=== PATIENT | male | born 1955 | race Caucasian/White ===

== ENCOUNTER 2016-04-26 15:37 | Outpatient (RCR) | payer MEDICAID ==
[2016-04-24 14:02] LABS: RED BLOOD COUNT 5.08 10^6/uL (4.35-5.85); RED CELL DISTRIBUTION WIDTH 14.9 % (10.0-14.5); WHITE BLOOD COUNT 7.7 10^3/uL (4.3-11.0)
[2016-04-24 14:22] LABS: ALBUMIN 4.2 G/DL (3.2-4.5); CALCIUM 9.9 MG/DL (8.5-10.1); CREATININE SERUM 1.39 MG/DL (0.60-1.30); PHOSPHORUS 3.5 MG/DL (2.3-4.7); POTASSIUM 2.9 MMOL/L (3.6-5.0)
[2016-04-25 06:54] LABS: CALCIUM PARA THYROID HORMONE 9.8 mg/dL (8.5-10.5)
[~2016-04-26 15:37] MED LIST: AC500T; AMIT150T; ASP325T; CHOL2000; CYCL10TA9; HYDR12.570; LISI20TA; METO100T; NAPR-243; OMG1KC; SMV20T; TRAM50TA2
[2016-04-26 16:14] LABS: PROTEIN/CREATININE RATIO 0.15
== END 2016-05-01 13:35 | disposition home or self-care (01) ==
LOC: LAB 15:37
PROVIDERS: ATTEND Internal Medicine Nephrology
DX: N18.2 Chronic kidney disease, stage 2 (mild) (principal); R60.0 Localized edema; E87.5 Hyperkalemia; Z86.59 Personal history of other mental and behavioral disorders; E66.2 Morbid (severe) obesity with alveolar hypoventilation; I12.9 Hypertensive chronic kidney disease with stage 1 through stage 4 chronic kidney disease, or unspecified chronic kidney disease; E78.5 Hyperlipidemia, unspecified; E11.9 Type 2 diabetes mellitus without complications; G47.33 Obstructive sleep apnea (adult) (pediatric); M79.7 Fibromyalgia; M19.90 Unspecified osteoarthritis, unspecified site
CPT/HCPCS: 36415; 80069; 82306; 82570; 83970; 84156; 85027

== ENCOUNTER 2016-05-01 13:24 | Outpatient (RCR) | payer MEDICAID ==
[2016-05-01 17:20] LABS: BILIRUBIN,URINE NEGATIVE (NEGATIVE); KETONES,URINE NEGATIVE (NEGATIVE); LEUKOCYTE ESTERASE ,URINE 2+ (NEGATIVE); NITRITE,URINE POSITIVE (NEGATIVE); PH,URINE 6 (5-9); PROTEIN,URINE 1+ (NEGATIVE); UROBILINOGEN,URINE NORMAL (NORMAL)
[2016-05-01 17:30] LABS: WBC,URINE TNTC /HPF
== END 2016-07-30 | disposition home or self-care (01) ==
LOC: LAB 13:24
PROVIDERS: ATTEND Internal Medicine Nephrology
DX: R35.0 Frequency of micturition (principal)
CPT/HCPCS: 81000; 87088; 87186

== ENCOUNTER → 2016-07-03 | Outpatient (CLI) | payer MEDICAID ==
[2016-07-03 13:30] LABS: BILIRUBIN,URINE NEGATIVE (NEGATIVE); KETONES,URINE NEGATIVE (NEGATIVE); LEUKOCYTE ESTERASE ,URINE 2+ (NEGATIVE); NITRITE,URINE POSITIVE (NEGATIVE); PH,URINE 6 (5-9); PROTEIN,URINE 1+ (NEGATIVE); UROBILINOGEN,URINE NORMAL (NORMAL)
[2016-07-03 13:40] LABS: SQUAMOUS EPITHELIAL CELL,UR RARE /HPF; WBC,URINE 25-50 /HPF
[2016-07-03 14:03] LABS: ALBUMIN 4.2 G/DL (3.2-4.5); ANION GAP 12 MMOL/L (5-14); BLOOD UREA NITROGEN 14 MG/DL (7-18); BUN/CREATININE RATIO 12; CALCIUM 9.6 MG/DL (8.5-10.1); CARBON DIOXIDE 25 MMOL/L (21-32); CHLORIDE 103 MMOL/L (98-107); CREATININE SERUM 1.19 MG/DL (0.60-1.30); GFR ESTIMATED > 60; GLUCOSE 168 MG/DL (70-105); PHOSPHORUS 3.1 MG/DL (2.3-4.7); POTASSIUM 4.4 MMOL/L (3.6-5.0); SODIUM 140 MMOL/L (135-145); URIC ACID 8.1 MG/DL (2.6-7.2)
[2016-07-04 07:46] LABS: MICROALBUMIN/CREATININE RATIO 37.6 mg/gCR (0.0-30.0)
== END ==
LOC: LAB 13:12
PROVIDERS: ATTEND Internal Medicine Nephrology
DX: E78.5 Hyperlipidemia, unspecified (principal); I12.9 Hypertensive chronic kidney disease with stage 1 through stage 4 chronic kidney disease, or unspecified chronic kidney disease; N18.2 Chronic kidney disease, stage 2 (mild); R60.0 Localized edema; E87.5 Hyperkalemia; E66.2 Morbid (severe) obesity with alveolar hypoventilation; E11.9 Type 2 diabetes mellitus without complications; M79.7 Fibromyalgia; M19.90 Unspecified osteoarthritis, unspecified site
CPT/HCPCS: 36415; 80069; 81000; 82043; 84550; 87088

== ENCOUNTER → 2017-03-23 | Outpatient (CLI) | payer MEDICAID ==
[2017-03-23 14:40] LABS: BILIRUBIN,URINE NEGATIVE (NEGATIVE); KETONES,URINE NEGATIVE (NEGATIVE); LEUKOCYTE ESTERASE ,URINE 3+ (NEGATIVE); NITRITE,URINE NEGATIVE (NEGATIVE); PH,URINE 5 (5-9); PROTEIN,URINE NEGATIVE (NEGATIVE); UROBILINOGEN,URINE NORMAL (NORMAL)
[2017-03-23 14:47] LABS: WBC,URINE 25-50 /HPF
[2017-03-23 14:58] LABS: PROTEIN/CREATININE RATIO 0.15
[2017-03-23 14:59] LABS: MEAN PLATELET VOLUME 9.7 FL (7.4-10.4); RED BLOOD COUNT 5.04 10^6/uL (4.35-5.85); RED CELL DISTRIBUTION WIDTH 14.9 % (10.0-14.5); WHITE BLOOD COUNT 9.3 10^3/uL (4.3-11.0)
[2017-03-23 15:16] LABS: ALBUMIN 4.1 GM/DL (3.2-4.5); CALCIUM 9.5 MG/DL (8.5-10.1); CREATININE SERUM 1.31 MG/DL (0.60-1.30); PHOSPHORUS 2.9 MG/DL (2.3-4.7); POTASSIUM 2.9 MMOL/L (3.6-5.0)
[2017-03-24 08:08] LABS: CALCIUM PARA THYROID HORMONE 9.4 mg/dL (8.5-10.5)
== END ==
LOC: LAB 14:28
PROVIDERS: ATTEND Internal Medicine Nephrology
DX: R60.0 Localized edema (principal); E87.5 Hyperkalemia; Z86.59 Personal history of other mental and behavioral disorders; E66.2 Morbid (severe) obesity with alveolar hypoventilation; I12.9 Hypertensive chronic kidney disease with stage 1 through stage 4 chronic kidney disease, or unspecified chronic kidney disease; N18.2 Chronic kidney disease, stage 2 (mild); E78.5 Hyperlipidemia, unspecified; E11.9 Type 2 diabetes mellitus without complications; G47.33 Obstructive sleep apnea (adult) (pediatric); M79.7 Fibromyalgia; M19.90 Unspecified osteoarthritis, unspecified site; N39.0 Urinary tract infection, site not specified; E87.6 Hypokalemia
CPT/HCPCS: 36415; 80069; 81000; 82306; 82570; 83970; 84156; 85027; 87088

== ENCOUNTER → 2017-04-03 | Outpatient (CLI) | payer MEDICAID ==
[2017-04-03 16:09] LABS: BILIRUBIN,URINE NEGATIVE (NEGATIVE); KETONES,URINE NEGATIVE (NEGATIVE); LEUKOCYTE ESTERASE ,URINE 3+ (NEGATIVE); NITRITE,URINE NEGATIVE (NEGATIVE); PH,URINE 5 (5-9); PROTEIN,URINE 1+ (NEGATIVE); UROBILINOGEN,URINE NORMAL (NORMAL)
[2017-04-03 16:23] LABS: WBC,URINE 50-100 /HPF
== END ==
LOC: LAB 15:54
PROVIDERS: ATTEND Internal Medicine Nephrology
DX: I12.9 Hypertensive chronic kidney disease with stage 1 through stage 4 chronic kidney disease, or unspecified chronic kidney disease (principal); N18.2 Chronic kidney disease, stage 2 (mild); R60.0 Localized edema; E87.5 Hyperkalemia; Z86.59 Personal history of other mental and behavioral disorders; E66.2 Morbid (severe) obesity with alveolar hypoventilation; E78.5 Hyperlipidemia, unspecified; E11.9 Type 2 diabetes mellitus without complications; M79.7 Fibromyalgia; N39.0 Urinary tract infection, site not specified; E87.6 Hypokalemia
CPT/HCPCS: 81000; 87088; 87186

== ENCOUNTER → 2017-07-21 | Outpatient (CLI) | payer MEDICAID ==
[~2017-07-21] VITALS: Ht 177.8 cm; Wt 167.8 kg
[~2017-07-21] MED LIST changes: +CATHETER FLUSH 10 ML SYR IV PRN; +REGADENOSON 0.4 MG/5 ML SYR (LEXISCAN) IV ONE
[2017-07-21 13:19] VITALS: BP 155/105
--- NOTE | 2017-07-21 21:17 | STRESS TEST ---
DATE OF SERVICE: 07/21/2017 PROCEDURE PERFORMED: Resting and post regadenoson technetium-99m Tetrofosmin SPECT CT imaging. ORDERING PHYSICIAN: Cory Becker MD, ORBIN, SULTANA, FACC. OTHER PHYSICIAN: SAMMI Bernard. CLINICAL DIAGNOSIS: Chest discomfort, shortness of breath. Baseline images were carried out after injection of 10.38 mCi technetium-99m Tetrofosmin. This was followed by 0.4 mg of regadenoson and 30.2 mCi technetium-99m Tetrofosmin for stress imaging. The electrocardiogram showed sinus rhythm at baseline. The electrocardiogram did not change significantly with the regadenoson infusion. Isolated premature ventricular contractions were seen. He tolerated the procedure well. Review of images at rest and following stress does not indicate any significant perfusion defects consistent with significant myocardial ischemia or infarction. Gated images show normal global left ventricular systolic function, normal regional wall motion. Left ventricular ejection fraction is calculated to be 72%. Left ventricular end diastolic volume is 53 mL. TID is absent (0.97). CONCLUSIONS: 1. No evidence of significant myocardial ischemia or infarction in this study. 2. Normal regional wall motion. 3. Normal global left ventricular systolic function with a calculated ejection fraction of 72%. 4. Normal left ventricular cavity size. Job ID: [id number] DocumentID: [id number] Dictated Date: 07/21/2017 17:49:54 Candy Wrapping Machine Operator Date: 07/21/2017 21:16:38 Dictated By: CORY BECKER MD, ROBIN, FACP, FACC, [facility]
== END ==
LOC: CARD 11:42
PROVIDERS: ATTEND Internal Medicine Cardiovascular Disease
DX: R07.9 Chest pain, unspecified (principal); R06.09 Other forms of dyspnea; E11.9 Type 2 diabetes mellitus without complications; I11.9 Hypertensive heart disease without heart failure; E66.09 Other obesity due to excess calories; G47.33 Obstructive sleep apnea (adult) (pediatric)
CPT/HCPCS: 78452; 93017

== ENCOUNTER → 2017-07-22 | Outpatient (CLI) | payer MEDICAID ==
[~2017-07-22] MED LIST changes: -CATHETER FLUSH 10 ML SYR IV PRN; -REGADENOSON 0.4 MG/5 ML SYR (LEXISCAN) IV ONE
[2017-07-22 15:01] LABS: BILIRUBIN,URINE NEGATIVE (NEGATIVE); CLARITY,URINE CLEAR; COLOR,URINE YELLOW; GLUCOSE, URINE (UA) 4+ (NEGATIVE); KETONES,URINE NEGATIVE (NEGATIVE); LEUKOCYTE ESTERASE ,URINE 3+ (NEGATIVE); NITRITE,URINE POSITIVE (NEGATIVE); PH,URINE 5 (5-9); PROTEIN,URINE 1+ (NEGATIVE); UROBILINOGEN,URINE NORMAL (NORMAL)
[2017-07-22 15:09] LABS: RBC,URINE RARE /HPF
[2017-07-22 15:10] LABS: BACTERIA,URINE LARGE /HPF; SQUAMOUS EPITHELIAL CELL,UR 0-2 /HPF; WBC,URINE >100 /HPF
[2017-07-22 15:13] LABS: HEMOGLOBIN 13.7 G/DL (13.3-17.7); MEAN PLATELET VOLUME 9.5 FL (7.4-10.4); RED BLOOD COUNT 4.87 10^6/uL (4.35-5.85); RED CELL DISTRIBUTION WIDTH 15.5 % (10.0-14.5); WHITE BLOOD COUNT 7.9 10^3/uL (4.3-11.0)
[2017-07-22 15:17] LABS: ALBUMIN 4.1 GM/DL (3.2-4.5); BUN/CREATININE RATIO 12; CALCIUM 9.8 MG/DL (8.5-10.1); CARBON DIOXIDE 26 MMOL/L (21-32); CHLORIDE 102 MMOL/L (98-107); CREATININE SERUM 1.13 MG/DL (0.60-1.30); GFR ESTIMATED > 60; GLUCOSE 333 MG/DL (70-105); PHOSPHORUS 2.9 MG/DL (2.3-4.7); POTASSIUM 4.3 MMOL/L (3.6-5.0); SODIUM 138 MMOL/L (135-145); URIC ACID 7.1 MG/DL (2.6-7.2)
== END ==
LOC: LAB 14:35
PROVIDERS: ATTEND Internal Medicine Nephrology
DX: I12.9 Hypertensive chronic kidney disease with stage 1 through stage 4 chronic kidney disease, or unspecified chronic kidney disease (principal); E11.22 Type 2 diabetes mellitus with diabetic chronic kidney disease; N18.2 Chronic kidney disease, stage 2 (mild); N39.0 Urinary tract infection, site not specified; R60.0 Localized edema; E87.5 Hyperkalemia; E78.5 Hyperlipidemia, unspecified; M79.7 Fibromyalgia; E87.6 Hypokalemia; E66.2 Morbid (severe) obesity with alveolar hypoventilation; Z86.59 Personal history of other mental and behavioral disorders
CPT/HCPCS: 36415; 80069; 81000; 82306; 82570; 83970; 84156; 84550; 85027; 87077; 87088; 87186

== ENCOUNTER 2017-10-01 15:59 | Inpatient (IN) | payer MEDICAID ==
[~2017-10-01] VITALS: Ht 177.8 cm; Wt 167.4 kg
[2017-10-01] MEDS ORDERED: NS IV 1000 ML 1,000 ML IV ONE (16:29)
[2017-10-01] MEDS ORDERED: TETANUS,DIPTH,PERTUSS P/F (BOOSTRIX) 0.5 ML VIAL IM ONE ×2 (16:30→18:35)
[2017-10-01 16:37] LABS: BASOPHILS % (AUTO) 0 % (0-10); EOSINOPHILS # (AUTO) 0.2 10^3/uL (0.0-0.3); EOSINOPHILS % (AUTO) 2 % (0-10); HEMATOCRIT 43 % (40-54); HEMOGLOBIN 14.3 G/DL (13.3-17.7); LYMPHOCYTES # (AUTO) 1.1 X 10^3 (1.0-4.0); LYMPHOCYTES % (AUTO) 13 % (12-44); MEAN CORPUSCULAR HEMOGLOBIN 29 PG (25-34); MEAN CORPUSCULAR HGB CONC 33 G/DL (32-36); MEAN CORPUSCULAR VOLUME 86 FL (80-99); MONOCYTES # (AUTO) 0.6 X 10^3 (0.0-1.0); MONOCYTES % (AUTO) 7 % (0-12); NEUTROPHILS # (AUTO) 6.9 X 10^3 (1.8-7.8); NEUTROPHILS % (AUTO) 78 % (42-75); PLATELET COUNT 209 10^3/uL (130-400); RED BLOOD COUNT 5.02 10^6/uL (4.35-5.85); RED CELL DISTRIBUTION WIDTH 15.9 % (10.0-14.5); WHITE BLOOD COUNT 8.9 10^3/uL (4.3-11.0)
--- NOTE | 2017-10-01 16:37 | ED Fall/Injury ---
General Chief Complaint: Trauma-Non Activation Stated Complaint: FALL Source: patient Exam Limitations: other (PT SPEECH PATTERN IS SOMEWHAT DIFFICULT TO UNDERSTAND- -MUMBLES ) History of Present Illness Date Seen by Provider: Oct 01, 2017 Time Seen by Provider: 16:15 Initial Comments PT ARRIVES VIA EMS FROM HOME PT STATES HE HAS FALLEN X 3 TODAY. STATES HIS "LEGS JUST GIVE OUT" NO LOSS OF CONSCIOUSNESS HAS ABRASIONS TO HIS NOSE, AND RIGHT ELBOW C/O PAIN TO RIGHT ELBOW AND RIGHT HAND ALSO C/O BILATERAL HIP PAIN, BUT HAS CHRONIC BILATERAL HIP PAIN NO HEADACHE NO NOSEBLEED NO VISION CHANGES NO DIZZINESS NO CHEST PAIN OR SHORTNESS OF BREATH NO PALPITATIONS NO NAUSEA/VOMITING/DIARRHEA NO SYNCOPE PT HAS PERIPHERAL NEUROPATHY. AND STATES HE HAS "NEUROPATHY OF MY WHOLE BODY" PT STATES HE SOMETIMES USES A CANE TO AMBULATE AND WAS USING ONE TODAY WHEN HE FELL EACH TIME. ACCUCHECK 140 BY EMS STATES HIS BLOOD GLUCOSE WAS 199 THIS AM, CHECKS IT ONCE A DAY, AND THIS READING IS NORMAL FOR HIM STATES HE HAS A SHOT ONCE A WEEK FOR HIS DIABETES PT STATES HE ATE BREAKFAST BUT HAS NOT EATEN LUNCH TODAY PCP: [facility], DEPOT MANAGER GUDELIA FISCHER Allergies and Home Medications Allergies Coded Allergies: Sulfa (Sulfonamide Antibiotics) (Unverified Allergy, Unknown, 03/21/14) latex (Unverified Allergy, Unknown, 03/21/14) raspberry (Unverified Allergy, Unknown, 03/21/14) zinc oxide (Unverified Allergy, Unknown, 03/21/14) Uncoded Allergies: ARTIFICIAL SWEETNERS (Allergy, Unknown, 03/21/14) Home Medications Acetaminophen 500 Mg Tablet, 1,000 MG PO TID, (Reported) Aspirin 325 Mg Tablet.dr, 325 MG PO DAILY, (Reported) Atorvastatin Calcium 40 Mg Tablet, 40 MG PO HS, (Reported) Baclofen 20 Mg Tablet, 20 MG PO BID PRN for MUSCLE SPASMS, (Reported) Budesonide/Formoterol Fumarate 10.2 Gm Hfa.aer.ad, 2 PUFF INH BID, (Reported) Docusate Sodium 100 Mg Capsule, 300 MG PO DAILY, (Reported) Duloxetine HCl 60 Mg Capsule.dr, 60 MG PO BID, (Reported) Exenatide Microspheres 2 Mg/0.65 Ml Pen.injctr, 2 MG SC Celeste, (Reported) Furosemide 20 Mg Tablet, 40 MG PO DAILY, (Reported) TAKES 2 (20MG) TABLETS Furosemide 20 Mg Tablet, 20 MG PO 1700, (Reported) Glipizide 10 Mg Tablet, 20 MG PO BID, (Reported) TAKES 2 (10MG) TABLETS Hydrochlorothiazide 25 Mg Tablet, 25 MG PO DAILY, (Reported) Lidocaine 1 Each Adh..patch, 2-3 PATCH TOP DAILY, (Reported) Metoprolol Tartrate 100 Mg Tablet, 100 MG PO BID, (Reported) Morphine Sulfate 15 Mg Tablet.er, 15 MG PO BID, (Reported) Mupirocin 22 Gm Oint...g., 0 GM TOP BID Prescribed by: JOHN BUCIO on 10/05/17 142 Nitrofurantoin Monohyd/M-Cryst 100 Mg Capsule, 1 TAB PO BID Prescribed by: JOHN BUCIO on 10/05/17 142 Chavies-3S/Dha/Epa/Fish Oil/D3 1 Each Capsule, 1 CAP PO BID, (Reported) Polyethylene Glycol 3350 17 Gm Powd.pack, 17 GM PO DAILY Prescribed by: JOHN BUCIO on 10/05/17 142 Potassium Chloride 20 Meq Tab.er.prt, 40 MEQ PO DAILY, (Reported) TAKES 2 (20MEQ) TABLETS Pregabalin 200 Mg Capsule, 200 MG PO TID, (Reported) Tamsulosin HCl 0.4 Mg Cap.er.24h, 0.4 MG PO 1800, (Reported) LAST FILLED #30 07-24-17 Patient Home Medication List Home Medication List Reviewed: Yes Review of Systems Constitutional: weakness Eyes: No Symptoms Reported Respiratory: no symptoms reported; No short of breath Cardiovascular: no symptoms reported; No chest pain, No palpitations, No syncope Gastrointestinal: no symptoms reported; No nausea, No vomiting Genitourinary: no symptoms reported Musculoskeletal: see HPI Skin: other (ABRASIONS, CHRONIC LEG WOUNDS) Psychiatric/Neurological: See HPI; Denies Headache Past Ccnuffz-Izxawl-Zlurmn Hx Patient Social History Alcohol Use: Occasionally Uses Recreational Drug Use: No Smoking Status: Former Smoker (1-2 PPD, QUIT IN 1991) Type Used: Cigarettes Immunizations Up To Date Tetanus Booster (TDap): Unknown Past Medical History Surgeries: No Respiratory: Yes COPD Cardiac: Yes High Cholesterol, Hypertension Neurological: Yes Neuropathy Genitourinary: No Gastrointestinal: No Musculoskeletal: Yes (CHRONIC GENERALIZED PAIN ) Arthritis Endocrine: Yes (MORBID OBESITY) Diabetes, Insulin dep HEENT: No Cancer: No Psychosocial: No Integumentary: Yes (CHRONIC LEG WOUNDS) Blood Disorders: No Physical Exam Vital Signs Capillary Refill : General Appearance: obese (MORBIDLY), other (FLIES ALL AROUND PT; SPEECH PATTERN MUMBLED-DIFFICULT TO UNDERSTAND-REPORTEDLY NORMAL FOR PT. MILDLY DYSPNEIC) HEENT: PERRL/EOMI, other (SUPERFICIAL ABRASION TO BRIDGE OF NOSE) Neck: non-tender, normal inspection Cardiovascular: regular rate, rhythm, no murmur Respiratory: chest non-tender, normal breath sounds, other (SLIGHTLY DYSPNEIC) Gastrointestinal: normal bowel sounds, non tender, soft Back: no vertebral tenderness Extremities: other (EXTENSIVE CHRONIC VENOUS STASIS CHANGES TO LOWER LEGS BILATERALLY WITH WOODY INDURATION. MULTIPLE OPEN AREAS/MACERATED AREAS TO LOWER LEGS. ABRASION TO RIGHT ELBOW. TENDERNESS TO RIGHT HAND AND RIGHT ELBOW. ) Neurologic/Psychiatric: coremaker machine II-XII nml as tested, alert, oriented x 3, sensory deficit (IN FEET AND LOWER LEGS) Skin: normal color, diaphoresis (AND WARM), other (ABRASIONS NOTED ABOVE; CHRONIC LOWER LEG WOUNDS/VENOUS STASIS CHANGES) [place] Coma Score Best Eye Response: (4) Open Spontaneously Best Verbal Response: (5) Oriented Best Motor Response: (6) Obeys Commands José Total: 15 Progress/Results/Core Measures Results/Orders Lab Results Laboratory Tests Test 10/01/17 16:15 10/01/17 16:48 10/01/17 18:44 10/01/17 19:20 Range/Units White Blood Count 8.9 4.3-11.0 10^3/uL Red Blood Count 5.02 4.35-5.85 10^6/uL Hemoglobin 14.3 13.3-17.7 G/DL Hematocrit 43 40-54 % Mean Corpuscular Volume 86 80-99 FL Mean Corpuscular Hemoglobin 29 25-34 PG Mean Corpuscular Hemoglobin Concent 33 32-36 G/DL Red Cell Distribution Width 15.9 H 10.0-14.5 % Platelet Count 209 130-400 10^3/uL Mean Platelet Volume 10.0 7.4-10.4 FL Neutrophils (%) (Auto) 78 H 42-75 % Lymphocytes (%) (Auto) 13 12-44 % Monocytes (%) (Auto) 7 0-12 % Eosinophils (%) (Auto) 2 0-10 % Basophils (%) (Auto) 0 0-10 % Neutrophils # (Auto) 6.9 1.8-7.8 X 10^3 Lymphocytes # (Auto) 1.1 1.0-4.0 X 10^3 Monocytes # (Auto) 0.6 0.0-1.0 X 10^3 Eosinophils # (Auto) 0.2 0.0-0.3 10^3/uL Basophils # (Auto) 0.0 0.0-0.1 10^3/uL Prothrombin Time 17.5 H 12.2-14.7 SEC INR Comment 1.4 0.8-1.4 Activated Partial Thromboplast Time 27 24-35 SEC Sodium Level 142 135-145 MMOL/L Potassium Level 3.4 L 3.6-5.0 MMOL/L Chloride Level 101 98-107 MMOL/L Carbon Dioxide Level 28 21-32 MMOL/L Anion Gap 13 5-14 MMOL/L Blood Urea Nitrogen 23 H 7-18 MG/DL Creatinine 1.29 0.60-1.30 MG/DL Estimat Glomerular Filtration Rate 57 BUN/Creatinine Ratio 18 Glucose Level 166 H 70-105 MG/DL Calcium Level 10.0 8.5-10.1 MG/DL Magnesium Level 2.0 1.8-2.4 MG/DL Total Bilirubin 1.0 0.1-1.0 MG/DL Aspartate Amino Transf (AST/SGOT) 25 5-34 U/L Alanine Aminotransferase (ALT/SGPT) 24 0-55 U/L Alkaline Phosphatase 86 40-136 U/L Total Creatine Kinase 225 H 30-200 U/L Creatine Kinase MB 3.7 <6.6 NG/ML Troponin I < 0.30 <0.30 NG/ML B-Type Natriuretic Peptide 46.7 <100.0 PG/ML Total Protein 7.3 6.4-8.2 GM/DL Albumin 4.3 3.2-4.5 GM/DL TSH [place] Testing 1.04 0.35-4.94 UIU/ML Serum Alcohol < 10 <10 MG/DL Glucometer 167 H 70-110 MG/DL Urine Color YELLOW Urine Clarity VERY CLOUDY H Urine pH 6 5-9 Urine Specific [place] 1.015 L 1.016-1.022 Urine Protein 1+ H NEGATIVE Urine Glucose (UA) NEGATIVE NEGATIVE Urine Ketones NEGATIVE NEGATIVE Urine Nitrite POSITIVE H NEGATIVE Urine Bilirubin NEGATIVE NEGATIVE Urine Urobilinogen NORMAL NORMAL MG/DL Urine Leukocyte Esterase 3+ H NEGATIVE Urine RBC (Auto) 1+ H NEGATIVE Urine RBC 0-2 /HPF Urine WBC >100 H /HPF Urine Squamous Epithelial Cells 0-2 /HPF Urine Crystals NONE /LPF Urine Bacteria LARGE H /HPF Urine Casts PRESENT /LPF Urine Hyaline Casts 0-2 H /LPF Urine Mucus NEGATIVE /LPF Urine Culture Indicated YES Urine Opiates Screen POSITIVE H NEGATIVE Urine Oxycodone Screen NEGATIVE NEGATIVE Urine Methadone Screen NEGATIVE NEGATIVE Urine Propoxyphene Screen NEGATIVE NEGATIVE Urine Barbiturates Screen NEGATIVE NEGATIVE Ur Tricyclic Antidepressants Screen POSITIVE H NEGATIVE Urine Phencyclidine Screen NEGATIVE NEGATIVE Urine Amphetamines Screen NEGATIVE NEGATIVE Urine Methamphetamines Screen NEGATIVE NEGATIVE Urine Benzodiazepines Screen NEGATIVE NEGATIVE Urine Cocaine Screen NEGATIVE NEGATIVE Urine Cannabinoids Screen NEGATIVE NEGATIVE Lab Scanned Report Referred Lab Report [id number] Micro Results Microbiology 10/01/17 Urine Culture - Final, Complete Escherichia coli Escherichia coli#2 See Comments My Orders Orders - JEAN-PAUL BEAN DO Accucheck Stat ONCE (10/01/17 16:29) Saline Lock/Iv-Start (10/01/17 16:29) Ekg Tracing (10/01/17 16:29) O2 (10/01/17 16:29) Monitor-Rhythm Ecg Trace Only (10/01/17 16:29) Ct Head/Face/Cervical Wo (10/01/17 16:29) Alcohol (10/01/17 16:29) BNP (10/01/17 16:29) Cbc With Automated Diff (10/01/17 16:29) Comprehensive Metabolic Panel (10/01/17 16:29) Creatine Kinase (10/01/17 16:29) Creatine Kinase Mb (10/01/17 16:29) Drug Screen Stat (Urine) (10/01/17 16:29) Magnesium (10/01/17 16:29) Protime With Inr (10/01/17 16:29) Partial Thromboplastin Time (10/01/17 16:29) Thyroid Analyzer (10/01/17 16:29) Troponin I (10/01/17 16:29) Ua Culture If Indicated (10/01/17 16:29) Chest 1 View, Ap/Pa Only (10/01/17 16:29) Saline Lock/Iv-Start (10/01/17 16:29) Ns Iv 1000 Ml (Sodium Chloride 0.9%) (10/01/17 16:29) Dipht,Pertuss(Acell),Tet Adult (Boostrix (10/01/17 16:30) Forearm, Right, 2 Views (10/01/17 16:29) Elbow, Right, 3 Views (10/01/17 16:29) Hand, Right, 3 Views (10/01/17 16:29) Ct Pelvis Wo (10/01/17 17:22) Lorazepam Injection (Ativan Injection) (10/01/17 18:00) Labetalol Injection (Normodyne Injection (10/01/17 18:45) Ns Iv 1000 Ml (Sodium Chloride 0.9%) (10/01/17 18:35) Dipht,Pertuss(Acell),Tet Adult (Boostrix (10/01/17 18:35) Urine Culture (10/01/17 18:44) Albuterol/Ipra Inhalation Soln (Duoneb I (10/01/17 19:15) Rt Request For Service (10/01/17 19:08) Svn Small Volume Nebulizer (10/01/17 19:08) Albuterol/Ipra Inhalation Soln (Duoneb I (10/01/17 19:11) Vital Signs/I&O Progress Progress Note : Progress Note PT WAS GIVEN ATIVAN IN XRAY/CT DEPT DUE TO PT NOT HOLDING STILL PT WAS RETURNED TO ER BY XRAY STAFF, LAYING PRONE ON THE CART WITH HIS FACE IN THE PILLOW, PT VERY DROWSY, SNORING WITH APNEIC EPISODES AND DIFFICULTY WAKING- -EVENTUALLY WAKES TO VOICE, AND PT IS DUSKY PT IMMEDIATELY TURNED ON TO BACK AND PLACED ON O2 AT 4L/NC, THEN OXIMASK AT 6L AND ABG'S DONE--IMMEDIATE IMPROVEMENT IN COLOR AND MENTATION. Initial ECG Impression Date: Oct 01, 2017 Initial ECG Impression Time: 16:41 Initial ECG Rate: 81 Initial ECG Rhythm: Normal Sinus (PVC'S/BIGEMINY) Initial ECG Impression: Nonspecific Changes Diagnostic Imaging Comments CXR--LINEAR ATELECTASIS/SCARRING RIGHT MID LUNG--PER RADIOLOGIST REPORT @ 1803 CT HEAD/MAXILLOFACIALS/CERVICAL SPINE--POOR STUDY, NASAL FRACTURE, NO GROSS INTRACRANIAL ABNORMALITIES--PER RADIOLOGIST REPORT @1900 XRAYS RIGHT FOREARM--LINEAR DENSITY ADJACENT TO MEDIAL EPICONDYLE-LIKELY CHRONIC CALCIFICATION. OTHER CHRONIC APPEARING CHANGES XRAYS RIGHT ELBOW--CHRONIC FINDINGS, NO ACUTE PROCESS XRAYS RIGHT HAND--NO ACUTE PROCESS, MILD SOFT TISSUE EDEMA DORSAL TO RIGHT WRIST CT PELVIS--NO ACUTE BONY INJURY ALL PER RADIOLOGIST REPORTS Reviewed: Reviewed by Me Departure Communication (Admissions) 1919--SPOKE WITH DR. HALL, ACCEPTS PT FOR ADMIT. Impression Primary Impression: Generalized weakness Additional Impressions: Altered mental status Qualified Codes: R40.4 - Transient alteration of awareness EXCESSIVE SOMNOLENCE WITH HYPOXIA Multiple falls Nasal fracture UTI (urinary tract infection) Qualified Codes: N30.01 - Acute cystitis with hematuria HTN (hypertension) Morbid obesity Suspected sleep apnea Multiple abrasions CHRONIC LEG WOUNDS Chronic venous stasis dermatitis of both lower extremities Neuropathy Type II diabetes mellitus with complication Qualified Codes: E11.8 - Type 2 diabetes mellitus with unspecified complications Disposition: ADMITTED INPATIENT Condition: Stable Departure-Patient Inst. Referrals: ÁNGEL SPIVEY MD (PCP) Primary Care Physician KATHYA FISCHER (Family) Primary Care Physician Scripts Nitrofurantoin Monohyd/M-Cryst (Macrobid 100 mg Capsule) 100 Mg Capsule 1 TAB PO BID, #10 CAP 0 Refills Prov: JOHN BUCIO MD 10/05/17 Mupirocin (Mupirocin) 22 Gm Oint...g. 0 GM TOP BID, #30 TUBE 0 Refills Prov: JOHN BUCIO MD 10/05/17 Polyethylene Glycol 3350 (Polyethylene Glycol 3350) 17 Gm Powd.pack 17 GM PO DAILY, #1 EA 0 Refills Prov: JOHN BUCIO MD 10/05/17 JEAN-PAUL BEAN DO Oct 01, 2017 16:37
[2017-10-01 16:44] LABS: INR 1.4 (0.8-1.4); PROTHROMBIN TIME PATIENT 17.5 SEC (12.2-14.7)
[2017-10-01 16:50] LABS: ALANINE AMINOTRANSFERASE 24 U/L (0-55); ALBUMIN 4.3 GM/DL (3.2-4.5); ALKALINE PHOSPHATASE 86 U/L (40-136); BUN/CREATININE RATIO 18; CARBON DIOXIDE 28 MMOL/L (21-32); CHLORIDE 101 MMOL/L (98-107); CREATINE KINASE 225 U/L (30-200); CREATININE SERUM 1.29 MG/DL (0.60-1.30); GFR ESTIMATED 57; GLUCOSE 166 MG/DL (70-105); POTASSIUM 3.4 MMOL/L (3.6-5.0); SODIUM 142 MMOL/L (135-145); TOTAL PROTEIN 7.3 GM/DL (6.4-8.2)
[2017-10-01 17:10] LABS: CREATINE KINASE MB 3.7 NG/ML (<6.6); TSH (THYROID ANALYZER) 1.04 UIU/ML (0.35-4.94)
--- NOTE | 2017-10-01 17:32 | Diagnostic Imaging Report ---
EXAMINATION: CT brain, CT maxillofacial bones, and CT cervical spine from 10/01/2017. TECHNIQUE: Multiple contiguous axial images were obtained through the head, neck, and facial bones without the use of intravenous contrast. Sagittal and coronal reformations through the cervical spine and facial bones were also performed. INDICATION: Multiple falls today, no loss of consciousness. Small abrasions to the bridge of the nose. COMPARISONS: None. FINDINGS: Brain: Diffuse chronic ischemic disease seen in a periventricular distribution. No superimposed acute infarct seen. No hemorrhage or infarct. No mass, mass effect, or midline shift. There is no hydrocephalus. Paranasal sinuses and mastoid air cells will be described on the separate maxillofacial examination. Calvarium is intact. IMPRESSION: 1. No acute intracranial process with chronic findings, as above. CT cervical spine: Fairly marked motion artifact is seen throughout portions of the cervical spine, limiting evaluation. Sagittal reconstructed imaging is nearly nondiagnostic but no obvious significant subluxations are seen. The vertebral body heights appear to be preserved. There is multilevel intervertebral disc space narrowing and facet hypertrophy. No definite or significant fractures visualized. Hyperdensity posterior to the C6 level, most likely calcification along the nuchal ligament. The prevertebral soft tissues are unremarkable for acute disease. IMPRESSION: 1. Markedly limited evaluation, nearly nondiagnostic at some levels. No significant fractures seen but if there is persistent concern or pain, repeat imaging recommended. CT maxillofacial: Nasal septum is deviated to the right with an adjacent right-sided small spur. Narrowing of the right nasal passage is noted. There is an irregularity along the anterior aspect of the nasal bone. Although this could be due to motion, a displaced/depressed fracture of the right nasal bone is possible. No significant surrounding soft tissue swelling however is seen but clinical correlation for point tenderness recommended. Remaining osseous structures appear to be intact. Sinuses demonstrate no acute air-fluid levels. There is no significant mucosal thickening within the sinuses. Visualized mastoid air cells are unremarkable. Both globes are intact. Postseptal space is unremarkable. IMPRESSION: 1. Irregularity and possibly depressed fracture along the anterior right aspect of the nasal bones. See above discussion. Remaining osseous structures are intact. Dictated by: Dictated on workstation # [id number]
--- NOTE | 2017-10-01 17:44 | Diagnostic Imaging Report ---
PATIENT HISTORY: Fall, right hand pain. TECHNIQUE: Three views of the right hand. COMPARISON: None. FINDINGS: No acute fracture or dislocation is seen in the right hand. Alignment appears normal. There are minimal degenerative changes at the radiocarpal joint and basal joints of the thumb. Mild soft tissue edema is seen at the dorsal aspect of the right wrist. IMPRESSION: Mild soft tissue edema dorsal to the right wrist with no acute osseous abnormality seen in the right hand. Dictated by: Dictated on workstation # [id number]
--- NOTE | 2017-10-01 17:45 | Diagnostic Imaging Report ---
INDICATION: Pain. EXAMINATION: Right elbow, 10/01/2017. FINDINGS: Three views of the elbow. Spurring along the medial epicondyle noted. No acute fracture or dislocation seen with no joint effusion appreciated. There is a small density in the posterior aspect of the elbow, which could represent a spur versus a loose body in the olecranon fossa. IMPRESSION: 1. Chronic findings as described above. No fractures identified. Dictated by: Dictated on workstation # [id number]
--- NOTE | 2017-10-01 17:47 | Diagnostic Imaging Report ---
INDICATION: Fall, forearm pain. EXAMINATION: Right forearm, 10/01/2017. FINDINGS: Two views of the forearm. Linear density adjacent to the medial epicondyle, described on the elbow radiographs, is most likely a chronic calcification although a tiny avulsion fracture is difficult to completely exclude, not mentioned on the elbow radiographs. Please correlate for any point tenderness. Within the remaining elbow there is a likely loose body or spur along the olecranon fossa with other chronic changes noted. No acute fracture or dislocation seen in the remaining forearm. IMPRESSION: Linear density adjacent to the medial epicondyle, see above discussion. Remaining findings appear chronic. Dictated by: Dictated on workstation # [id number]
--- NOTE | 2017-10-01 17:49 | Diagnostic Imaging Report ---
INDICATION: Fell, no chest complaints. EXAMINATION: Chest dated 10/01/2017. COMPARISON: 08/03/2009. FINDINGS: The heart is prominent. The pulmonary vasculature is unremarkable. Linear atelectasis is seen in the right mid lung with remaining lungs demonstrating chronic changes. No effusions and no pneumothorax. IMPRESSION: 1. Linear atelectasis or scar right mid lung with remaining chest stable from previous. 2. Cardiomegaly. Dictated by: Dictated on workstation # [id number]
[2017-10-01] MEDS ORDERED: LORazepam INJ 2 MG/ML (ATIVAN) VIAL IVP ONE (18:00)
[2017-10-01] MEDS ORDERED: NS IV 1000 ML 1,000 ML ONE (18:35)
--- NOTE | 2017-10-01 18:38 | Diagnostic Imaging Report ---
INDICATION: Multiple falls recently. Immobilized. Complaining of pelvic pain. EXAMINATION: CT pelvis without contrast, 10/01/2017. FINDINGS: No acute fractures or dislocations appreciated. The hip joint spaces appear maintained. The visualized lower lumbar region demonstrates multilevel degenerative findings but no acute abnormality. The visualized intra-abdominal structures demonstrate atherosclerotic disease with no other gross abnormalities although limited due to the bone algorithm technique and patient body habitus. IMPRESSION: No acute osseous abnormality. Dictated by: Dictated on workstation # [id number]
[2017-10-01] MEDS ORDERED: LABETALOL HCL 20 MG/4 ML VIAL IV ONE (18:45)
[2017-10-01 18:53] LABS: BILIRUBIN,URINE NEGATIVE (NEGATIVE); CLARITY,URINE VERY CLOUDY; COLOR,URINE YELLOW; GLUCOSE, URINE (UA) NEGATIVE (NEGATIVE); KETONES,URINE NEGATIVE (NEGATIVE); LEUKOCYTE ESTERASE ,URINE 3+ (NEGATIVE); NITRITE,URINE POSITIVE (NEGATIVE); PH,URINE 6 (5-9); PROTEIN,URINE 1+ (NEGATIVE); UROBILINOGEN,URINE NORMAL (NORMAL)
[2017-10-01 19:01] LABS: BACTERIA,URINE LARGE /HPF; RBC,URINE 0-2 /HPF; SQUAMOUS EPITHELIAL CELL,UR 0-2 /HPF; WBC,URINE >100 /HPF
[2017-10-01 19:02] LABS: HYALINE CASTS, URINE 0-2 /LPF
[2017-10-01 19:11] LABS: AMPHETAMINE SCREEN, URINE NEGATIVE (NEGATIVE); BARBITURATE SCREEN URINE NEGATIVE (NEGATIVE); BENZODIAZEPINES SCREEN URINE NEGATIVE (NEGATIVE); CANNABINOID SCREEN, URINE NEGATIVE (NEGATIVE); COCAINE SCREEN URINE NEGATIVE (NEGATIVE); METHADONE STAT NEGATIVE (NEGATIVE); METHAMPHETAMINE SCREEN URINE S NEGATIVE (NEGATIVE); OPIATE SCREEN URINE POSITIVE (NEGATIVE); OXYCODONE STAT NEGATIVE (NEGATIVE); PROPOXYPHENE STAT NEGATIVE (NEGATIVE); TRICYCLIC ANTIDEPRESSANTS SCRE POSITIVE (NEGATIVE)
[2017-10-01] MEDS ORDERED: RT-ALBUTEROL/IPRATROPIUM 3 ML (DUONEB) VIAL ONE (19:11)
[2017-10-01] MEDS ORDERED: RT-ALBUTEROL/IPRATROPIUM 3 ML (DUONEB) VIAL INH ONE (19:15)
--- OUTSIDE RECORDS SUMMARY | 2017-10-01 19:27 | XMS REPORT ---
Author Author KATHYA FISCHER [facility] Address [address] [place] [address] Care Team Providers Care Trial Examiner Name Role Phone KATHYA FISCHER Unavailable PROBLEMS Type Condition ICD9-CM Code [id number] Code Onset Dates Condition Status SNOMED Code Problem Diabetes 250.00 Active 51095676 Problem Hypertension, benign I10 Active 23288341 Problem Diabetes type 2, uncontrolled E11.65 Active 506939834 Problem Obstructive sleep apnea G47.33 Active 94335818 Problem 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 Active 86336557 Problem Polyneuropathy G62.9 Active 70215090 Problem Uncontrolled type 2 diabetes mellitus without complication, without long-term current use of insulin E11.65 Active 497439604 Problem Diabetes type 2, controlled E11.9 Active 96761223 Problem Fibromyalgia M79.7 Active 854247000 Problem Arthritis M19.90 Active 2882489 ALLERGIES No Known Allergies SOCIAL HISTORY No smoking Hx information available PLAN OF CARE VITAL SIGNS MEDICATIONS Medication Instructions Dosage Frequency Start Date End Date Duration Status Tramadol HCl 50 MG Orally every 8 hrs prn TWO TABLETS Active RESULTS No Results PROCEDURES No Known procedures IMMUNIZATIONS No Known Immunizations
--- OUTSIDE RECORDS SUMMARY | 2017-10-01 19:27 | XMS REPORT ---
Author Author KATHYA FISCHER [facility] Address [address] [place] [address] Care Team Providers Care Medical Research Associate Name Role Phone KATHYA FISCHER Unavailable PROBLEMS Type Condition ICD9-CM Code [id number] Code Onset Dates Condition Status SNOMED Code Problem Unspecified venous (peripheral) insufficiency 459.81 Active 28512751 Problem Other and unspecified hyperlipidemia 272.4 Active 70879700 Problem Unspecified hypertensive heart disease without heart failure 402.90 Active 46169134 Problem Edema 782.3 Active 11553668 Problem Diabetes type 2, controlled E11.9 Active 19564779 Problem Hypertension, benign I10 Active 03415012 Problem Obstructive sleep apnea G47.33 Active 79578642 Problem Pain in joint, lower leg 719.46 Active 130466261 Problem Diabetes type 2, uncontrolled E11.65 Active 008796171 Problem Diabetes 250.00 Active 31694800 ALLERGIES Unknown Allergies SOCIAL HISTORY No smoking Hx information available PLAN OF CARE VITAL SIGNS MEDICATIONS Medication Instructions Dosage Frequency Start Date End Date Duration Status Tramadol HCl 50 MG Orally every 8 hrs prn TWO TABLETS Active RESULTS No Results PROCEDURES No Known procedures IMMUNIZATIONS No Known Immunizations
--- OUTSIDE RECORDS SUMMARY | 2017-10-01 19:27 | XMS REPORT ---
Author Author KATHYA FISCHER [facility] Address [address] [place] [address] Care Team Providers Care Instrument Adjuster Name Role Phone KATHYA FISCHER Unavailable PROBLEMS Type Condition ICD9-CM Code [id number] Code Onset Dates Condition Status SNOMED Code Problem Diabetes 250.00 Active 25434489 Problem Hypertension, benign I10 Active 23530254 Problem Diabetes type 2, uncontrolled E11.65 Active 431136476 Problem Obstructive sleep apnea G47.33 Active 09433628 Problem 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 Active 90320626 Problem Polyneuropathy G62.9 Active 60732739 Problem Uncontrolled type 2 diabetes mellitus without complication, without long-term current use of insulin E11.65 Active 823946984 Problem Diabetes type 2, controlled E11.9 Active 01746868 Problem Fibromyalgia M79.7 Active 016447707 Problem Arthritis M19.90 Active 0192440 ALLERGIES Unknown Allergies SOCIAL HISTORY No smoking Hx information available PLAN OF CARE VITAL SIGNS MEDICATIONS Medication Instructions Dosage Frequency Start Date End Date Duration Status Tramadol HCl 50 mg Orally every 8 hrs prn TWO TABLETS 28 days Active RESULTS No Results PROCEDURES No Known procedures IMMUNIZATIONS No Known Immunizations
--- OUTSIDE RECORDS SUMMARY | 2017-10-01 19:27 | XMS REPORT ---
Author Author KATHYA FISCHER Organization [facility] Address [address] [place] [address] Care Team Providers Care Research Laboratory Technician Name Role Phone KATHYA FISCHER Unavailable PROBLEMS Type Condition ICD9-CM Code DIE23-BD Code Onset Dates Condition Status SNOMED Code Problem Diabetes 250.00 Active 61614177 Problem Hypertension, benign I10 Active 72038288 Problem Diabetes type 2, uncontrolled E11.65 Active 099955627 Problem Obstructive sleep apnea G47.33 Active 86365829 Problem 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 Active 78234346 Problem Polyneuropathy G62.9 Active 19877705 Problem Uncontrolled type 2 diabetes mellitus without complication, without long-term current use of insulin E11.65 Active 997708891 Problem Diabetes type 2, controlled E11.9 Active 56904021 Problem Fibromyalgia M79.7 Active 017976555 Problem Arthritis M19.90 Active 5213720 ALLERGIES No Information SOCIAL HISTORY Never Assessed PLAN OF CARE VITAL SIGNS MEDICATIONS Medication Instructions Dosage Frequency Start Date End Date Duration Status Tramadol HCl 50 MG Orally every 8 hrs prn TWO TABLETS 28 days Active Lyrica 200 mg Orally Three times a day 1 capsule 8h 28 days Active RESULTS No Results PROCEDURES No Known procedures IMMUNIZATIONS No Known Immunizations MEDICAL (GENERAL) HISTORY Type Description Date Medical History Other and unspecified hyperlipidemia Medical History Unspecified hypertensive heart disease without heart failure Medical History Unspecified venous (peripheral) insufficiency Medical History Edema Medical History depression Medical History vitamin D deficiency Medical History type II diabetes Medical History sleep apnea with CPAP Medical History fibromyalgia Medical History obesity Medical History bao neuroma (Dr. Masters) Surgical History tonsillectomy Hospitalization History surgeries
--- OUTSIDE RECORDS SUMMARY | 2017-10-01 19:27 | XMS REPORT ---
Author Author KATHYA FISCHER Organization [employer] Address Unknown Phone Unavailable Care Team Providers Care Cytometry Technologist Name Role Phone KATHYA FISCHER CP Unavailable Allergies No Known Allergies Problems Problem Type Condition Code Onset Dates Condition Status Problem Obstructive sleep apnea G47.33 Active Problem Pain in joint, lower leg 719.46 Active Problem Diabetes 250.00 Active Problem Unspecified venous (peripheral) insufficiency 459.81 Active Problem Edema 782.3 Active Problem Other and unspecified hyperlipidemia 272.4 Active Problem Unspecified hypertensive heart disease without heart failure 402.90 Active Medications No Known Medications Results No Known Results Summary Purpose [employer] Submission
--- OUTSIDE RECORDS SUMMARY | 2017-10-01 19:27 | XMS REPORT ---
Author Author KATHYA FISCHER Organization [employer] Address Unknown Phone Unavailable Care Team Providers Care Dairy Feed Worker Name Role Phone KATHYA FISCHER CP Unavailable Allergies No Known Allergies Problems Problem Type Condition ICD-9 Code Onset Dates Condition Status Problem Pain in joint, lower leg 719.46 Active Problem Other and unspecified hyperlipidemia 272.4 Active Problem Diabetes 250.00 Active Problem Edema 782.3 Active Problem Unspecified hypertensive heart disease without heart failure 402.90 Active Problem Unspecified venous (peripheral) insufficiency 459.81 Active Medications Medication Code System Code Instructions Start Date End Date Status Dosage Lyrica [facility] [id number] 200 MG TAKE ONE CAPSULE BY MOUTH THREE TIMES DAILY Results No Known Results Summary Purpose [employer] Submission
--- OUTSIDE RECORDS SUMMARY | 2017-10-01 19:28 | XMS REPORT ---
Author Author KATHYA FISCHER Organization [employer] Address Unknown Phone Unavailable Care Team Providers Care Tension Worker Name Role Phone KATHYA FISCHER CP [...] disease without heart failure 402.90 Active Medications Medication Code System Code Instructions Start Date End Date Status Dosage Tamsulosin HCl [facility] [address]-48 0.4 MG Orally Once a day 1 capsule 30 minutes after the same meal each day Tramadol HCl [facility] [address]-75 50 MG Orally every 8 hrs prn TWO TABLETS Lyrica [facility] [address]-91 200 MG Orally Three times a day 1 capsule Results No Known Results Summary Purpose [employer] Submission
--- OUTSIDE RECORDS SUMMARY | 2017-10-01 19:28 | XMS REPORT ---
Author Author KATHYA FISCHER Organization [facility] [place] Address [address] [place] [address] Care Team Providers Care String Top Sealer Name Role Phone KATHYA FISCHER Unavailable PROBLEMS Type Condition ICD9-CM Code VJU42-YZ Code Onset Dates Condition Status SNOMED Code Problem Hypertension, benign I10 Active 32684080 Problem Obstructive sleep apnea G47.33 Active 07279172 Problem Controlled type 2 diabetes mellitus without complication, without long -term current use of insulin E11.9 Active 263643364 Problem 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 Active 05398145 Problem Arthritis M19.90 Active 0114977 Problem Uncontrolled type 2 diabetes mellitus without complication, without long-term current use of insulin E11.65 Active 486930033 Problem Polyneuropathy G62.9 Active 88721302 Problem Fibromyalgia M79.7 Active [id number] ALLERGIES No Information ENCOUNTERS Encounter Location Date Diagnosis [facility] [place] [address] [address]- [address] Jul, Hypertension, benign I10 [facility] [place] [id number] [place] [address] 30404- 8038 Jul, Fibromyalgia M79.7 [facility] [place] [id number] [place] [address] 35227- 1561 Jul, [facility] [place] [id number] [place] [address] 81156- 7684 Jun, [facility] [place] [address] [address]- [address] Jun, Hypertension, benign I10 ; Arthritis M19.90 ; 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 and Uncontrolled type 2 diabetes mellitus without complication, without long-term current use of insulin E11.65 [facility] [id number] [place] [address] 93013 -0642 Jun, Acute nasopharyngitis J00 and BMI 50.0-59.9, adult Z68.43 [facility] [place] [address] [address]- [address] Jun, Fibromyalgia M79.7 [facility] [place] [id number] [place] [address] 67539- 5066 May, [facility] [place] [address] 79679- 2601 May, Fibromyalgia M79.7 [facility] [place] [id number] [place] [address] 53724- 9071 Apr, Fibromyalgia M79.7 [facility] [place] [id number] [place] [address] 01575- 6989 Apr, [facility] [place] [address] 9[address]92- 4460 Apr, [facility] [place] [id number] [place] [address] 47889- 8699 Apr, Arthritis M19.90 [facility] [place] [address] 01804- 1050 Apr, Arthritis M19.90 [facility] [place] [id number] [place] [address] 91697- 6232 Apr, Arthritis M19.90 and Controlled type 2 diabetes mellitus without complication, without long-term current use of insulin E11.9 [facility] [place] [id number] [place] [address] 96576- 5836 Apr, [facility] [place] [id number] [place] [address] 87607- 8646 Apr, Fibromyalgia M79.7 [facility] [place] [id number] [place] [address] 75689- 2496 Mar, [facility] [place] [id number] [place] [address] 89616- 7858 Mar, [facility] [place] [id number] [place] [address] 44193- 6267 Mar, Fibromyalgia M79.7 [facility] [place] [id number] [place] [address] 11969- 8348 Feb, [facility] [place] [id number] [place] [address] 57291- 8576 Feb, [facility] [place] [address] 97090- 3784 Feb, [facility] [place] [id number] [place] [address] 90398- 0980 Feb, Fibromyalgia M79.7 [facility] [place] [address] 28249- 7010 Feb, Diabetes type 2, uncontrolled E11.65 and Encounter for immunization Z23 [facility] [place] [address] 54253- 2500 Jan, [facility] [place] [id number] [place] [address] 43611- 6586 Jan, Fibromyalgia M79.7 [facility] [place] [id number] [place] [address] 89343- 4640 Dec, [facility] [place] [id number] [place] [address] 46500- 1817 Dec, Fibromyalgia M79.7 [facility] [place] [id number] [place] [address] 64215- 7157 Nov, [facility] [place] [id number] [place] [address] 40319- 8158 Nov, [facility] [place] [id number] [place] [address] 47127- 2032 Nov, 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 and Polyneuropathy G62.9 [facility] [place] [id number] [place] [address] 60594- 9030 Nov, [facility] [place] [address] [facility] [id number] [address]- 6249 Nov, [facility] [place] [address] [facility] [id number] [place] [address] 58999- 7206 Oct, Diabetes type 2, uncontrolled E11.65 [facility] [place] [id number] [place] [address] 13230 2546 Oct, Diabetes type 2, uncontrolled E11.65 ; Polyneuropathy G62.9 and Pain in right wrist M25.531 [facility] [place] [address] [facility] [id number] [place] [address], [place] [address] 2546 Oct, [facility] [place] [address] [facility] [id number] [place] [address] 68067 2546 Oct, Pain in left shoulder M25.512 [facility] [place] [id number] [place] [address] 03722- 1696 Sep, [facility] [place] [id number] [place] [address] 46078- 6719 Sep, Pain in left shoulder M25.512 [facility] [place] [id number] [place] [address] 72039- 5996 Sep, [facility] [place] [address] [address]- 1448 August, Pain in left shoulder M25.512 [facility] [place] [id number] [address] 2546 Jul, [facility] [place] [id number] [address] 2546 Jul, [facility] [place] [id number] [place] [address] 31439- 2546 Jul, Pain in left shoulder M25.512 [facility] [place] [address] 2956 Jun, [facility] [place] [id number] [place] [address] 59145- 1776 17 Jun, 2016 [facility] [place] [address], [place] [address]- 2566 17 Jun, 2016 Diabetes type 2, uncontrolled E11.65 ; Fibromyalgia M79.7 and Arthritis M19.90 [facility] [place] [id number] [address] 2546 14 Jun, 2016 Pain in left shoulder M25.512 [facility] [place] [id number] [address]- 4026 May, [facility] [place] [id number] [place] [address] 32030- 1156 May, Diabetes type 2, controlled E11.9 [facility] [place] [id number], [place] [address]- 7596 17 May, 2016 [facility] [place] [id number] [place] [address] 77107- 9446 May, Uncontrolled type 2 diabetes mellitus without complication, without long-term current use of insulin E11.65 [facility] [place] [id number], [place] [address]- 4880 May, Pain in left shoulder M25.512 [facility] [place] [id number], [place] [address]- 1856 May, Diabetes type 2, controlled E11.9 and Uncontrolled type 2 diabetes mellitus without complication, without long-term current use of insulin E11.65 [facility] [place] [id number], [place] [address]- 6487 Apr, [facility] [place] [id number], [place] [address]- 9706 Apr, [facility] [place] [id number]- 2976 Mar, [facility] [place] [id number] [address]- 6416 Mar, [place] [address] [id number] [place] [address]- 8507 Mar, [facility] [address] [id number] [place] [address]- 1404 Feb, [facility] [address] [id number] [place] [id number] Feb, Dental examination Z01.20 [facility] [address] [id number] [place] [address]- 0237 Jan, [facility] [address] [id number] [place] [address]- 6341 Dec, [facility] [address] [id number] [place] [address]- 1952 Dec, [facility] [place] [address] [id number] [place] [address]- 9072 Dec, [facility] [address] [id number] [place] [address]- 3175 Dec, Diabetes type 2, controlled E11.9 [facility] [place] [address] [id number] [place] [address]- 8716 Nov, [facility] [address] [id number] [place] [address]- 4624 Nov, [facility] [place] [address] [id number] [place] [address]- 3294 Nov, [facility] [address] [id number] [address]- 5863 Nov, [facility] [address] [id number] [place] [address]- 2609 Oct, [facility] [address] [id number] [place] [address]- 0707 Oct, [facility] [address] [id number] [place] [address]- 4920 Oct, [facility] [id number], [place] [address]- 6101 Sep, [facility] [place] [id number], [place] [address]- 8922 Sep, Diabetes type 2, controlled E11.9 [facility] [place] [id number], [place] [address]- 2545 Sep, Diabetes type 2, controlled E11.9 [facility] [place] [id number] [place] [address] 69040- 5535 August, [facility] [place] [id number] [place] [address] 92008- 7483 August, [facility] [place] [id number] [place] [address] 99877- 3949 August, Type 2 diabetes mellitus without complication E11.9 and Pain in left shoulder M25.512 [facility] [place] [id number] [address]- 0368 Jul, [facility] [place] [id number] [place] [address] 52491- 4129 Jul, Diabetes type 2, controlled E11.9 and Hypertension, benign I10 [facility] [place] [id number], [place] [address]- 7807 Jun, [facility] [place] [id number], [place] [address]- 2892 Jun, [facility] [place] [id number], [place] [address]- 0089 Jun, Diabetes 250.00 [facility] [place] [id number], [place] [address]- 1723 Jun, [facility] [place] [address], [place] [address]- 7633 May, Diabetes type 2, uncontrolled E11.65 [facility] [place] [id number], [place] [address]- 0859 May, [facility] [place] [id number], [place] [address]- 3615 Apr, Type 2 diabetes mellitus without complication E11.9 [facility] [place] [id number] [place] [address] 97374- 9362 Apr, Encounter for immunization Z23 [facility] [place] [id number] [place] [address], [place] [address]- 3790 Apr, [facility] [place] [id number] [place] [address] 22755- 8263 Mar, [facility] [place] [id number] [place] [address], [place] [address]- 7156 Mar, [facility] [place] [id number] [place] [address] 88233- 6471 Mar, [facility] [place] [id number] [place] [address] 96346- 1724 Feb, [facility] [place] [id number] [place] [address] 30402- 5125 Jan, [facility] [place] [id number] [place] [address] 46637- 8614 Jan, [facility] [place] [id number] [place] [address] 21791- 7585 Jan, [facility] [place] [id number] [place] [address] 85276- 1759 Dec, Diabetes 250.00 and COPD (chronic obstructive pulmonary disease) 496 [facility] [place] [id number], [place] [address]- 2233 Dec, [facility] [place] [id number] [place] [address] 88864- 1263 Dec, [facility] [place] [id number], [place] [address]- 5198 Nov, [facility] [place] [id number] [place] [address] 69475- 6059 Oct, Diabetes 250.00 [facility] [place] [id number], [place] [address]- 9182 Sep, [facility] [place] [id number]- 4328 Sep, [facility] [place] [id number], [place] [address]- 0462 Sep, [facility] [place] [id number], [place] [address]- 8294 Sep, Diabetes 250.00 [facility] [place] [id number] [address]- 7605 Sep, [facility] [place] [id number] [address]- 2381 Sep, [facility] [place] [id number] 1276 August, Hypertension, essential, benign 401.1 ; Coronary atherosclerosis of [place] coronary artery 414.01 and Diabetic neuropathy associated with type 2 diabetes mellitus 250.60 [facility] [place] [id number], [place] [address]- 4579 Jul, [facility] [place] [id number], [place] [address]- 1159 Jul, [facility] [place] [id number], [place] [address]- 8270 Jul, [facility] [place] [id number], [place] [address]- 6918 Jun, [facility] [place] [id number]- 1391 Jun, [facility] [place] [id number] 1163 Jun, [facility] [place] [id number] [address]- 8383 Jun, [facility] [place] [id number] [place] [address]- 4675 Jun, [facility] [place] [facility] [address] [id number] [place] [address]- 3510 May, 2014 [facility] [place] [facility] [address] [id number] [place] [address]46 May, 2014 [facility] [place] [facility] [address] [id number] [place] [address]- 4926 May, 2014 [facility] [place] [facility] [address] [id number] [place] [address]- 4142 May, 2014 [facility] [place] [facility] [address] [id number] [place] [address]- 4012 May, 2014 [facility] [place] [facility] [address] [facility] [id number] [place] 0730 May, 2014 [facility] [place] [facility] [address] [facility] [id number] [place] [address]- 2030 May, [facility] [place] [facility] [address] [facility] [id number] [place] [address] Apr, [facility] [place] [facility] [address] [facility] [id number] [place] [address] Apr, [facility] [place] [facility] [address] [facility] [id number] [place] [address] Apr, [facility] [place] [facility] [address] [id number] [place] [address] Apr, [facility] [place] [facility] [address] [id number] [place] [address] [address] Mar, [facility] [place] [facility] [address] [id number] [place] [address] Mar, [facility] [place] [facility] [address] [facility] [id number] [place] [address] Mar, [facility] [place] [facility] [address] [id number] [place] [address] Mar, [facility] [place] [facility] [address] [id number] [place] [address] Feb, [facility] [place] [facility] [address] [id number] [place] [address] Feb, [facility] [place] [facility] [address] [id number] [place] [address] Feb, [facility] [place] [facility] [address] [id number] [place] [address] Feb, [facility] [place] [facility] [address] [id number] [place] [address] Feb, [facility] [place] [facility] [address] [id number] [place] [address] Feb, [facility] [place] [facility] [address] [id number] [place] [address] Feb, [facility] [place] [facility] [address] [id number] [place] [address] Jan, [facility] [place] [facility] [address] [id number] [place] [address] Jan, [facility] [place] [facility] [address] [id number] [place] [address] Dec, [facility] [place] [facility] [address] [id number] [place] [address] Dec, [facility] [place] [facility] [address] [id number] [place] [address] 10 Dec, 2013 [facility] [place] [facility] [address] [id number] [place] [address] 10 Dec, 2013 [facility] [place] [facility] [address] [id number] [place] [address] Dec, [facility] [place] [facility] [address] [id number] [place] [address] 04 Dec, 2013 [facility] [place] [facility] [address] [id number] [place] [address] Dec, [facility] [place] [facility] [address] [id number] [place] [address] Dec, [facility] [place] [facility] [address] [id number] [place] [address] Nov, [facility] [place] [facility] [address] [id number] [place] [address] Nov, [facility] [place] [facility] [address] [id number] [place] [address] Nov, [facility] [place] [facility] [address] [id number] [place] [address] Nov, [facility] [place] [facility] [address] [id number] [place] [address] Oct, [facility] [place] [facility] [address] [id number] [place] [address] Oct, [facility] [place] [facility] [address] [id number] [place] [address] Oct, [facility] [place] [facility] [address] [id number] [place] [address] Oct, [facility] [place] [facility] [address] [id number] [place] [address] Oct, [facility] [place] [facility] [address] [id number] [place] [address] Oct, [facility] [place] [facility] [address] [id number] [place] [address] Oct, [facility] [place] [facility] [address] [id number] [place] [address] Oct, [facility] [place] [facility] [address] [id number] [place] [address] Sep, [facility] [place] [facility] [address] [id number] [place] [address] Sep, [facility] [place] [facility] [address] [id number] [place] [address] August, [facility] [place] [facility] [address] [id number] [place] [address] August, [facility] [place] [facility] [address] [id number] [place] [address] Jul, [facility] [place] [facility] [address] [id number] [place] [address] Jul, [facility] [place] [facility] [address] [id number] [place] [address] Jul, [facility] [place] [facility] [address] [id number] [place] [address] Jul, [facility] [place] [facility] [address] [id number] [place] [address] Jul, [facility] [place] [facility] [address] [id number] [place] [address] 94[address] Jul, [facility] [place] [facility] [address] [id number] [place] [address] 14[address] Jul, [facility] [place] [facility] [address] [id number] [place] [address] 09[address] Jul, [facility] [place] [facility] [address] [id number] [place] [address] Jun, [facility] [place] [facility] [address] [id number] [place] [address] 1556 Jun, [facility] [place] [facility] [address] [id number] [place] [address] 5[address] Jun, [facility] [place] [facility] [address] [id number] [place] [address] 6[address] Jun, [facility] [place] [facility] [address] [id number] [place] [address] May, [facility] [place] [facility] [address] [id number] [place] [address] 18 May, 2013 [facility] [address] [id number] [place] [address] Apr, [facility] [place] [facility] [address] [id number] [place] [address] 7118 Apr, [facility] [address] [id number] [place] [address] 8337 Mar, [facility] [place] [facility] [address] [id number] [place] [address] 7452 Mar, [facility] [address] [id number] [place] [address] 5433 Mar, [facility] [place] [facility] [address] [id number] [place] [address] 0321 Mar, [facility] [address] [id number] [place] [address]- 7867 Mar, [facility] [place] [facility] [address] [id number] [place] [address] 290[address] Mar, [facility] [address] [id number] [place] [address] 2385 Feb, [facility] [address] [id number] [place] [address] 2647 Feb, [facility] [place] [facility] [address] [id number] [place] [address] 8951 Feb, [facility] [place] [facility] [address] [id number] [address] Feb, [facility] [place] [facility] [address] [id number] [place] [address]- 6541 Feb, [facility] [place] [facility] [address] [id number] [place] [address]- 4268 Feb, [facility] [place] [facility] [address] [id number] [address] 8[address] Feb, [facility] [place] [facility] [address] [id number] [place] [address] 9315 Feb, [facility] [place] [facility] [address] [id number] [place] [address] 2826 15 Jan, 2013 [facility] [place] [facility] [address] [id number] [place] [address] 27[address] 15 Jan, 2013 [facility] [place] [facility] [address] [id number] [place] [address]- 8146 14 Jan, 2013 [facility] [place] [facility] [address] [id number] [place] [address] 14 Jan, 2013 [facility] [place] [facility] [address] [id number] [place] [address]- [address] 18 Dec, 2012 [facility] [place] [facility] [address] [id number] [place] [address] 9470 Dec, [facility] [place] [facility] [address] [id number] [place] [address] 2012 [facility] [place] [facility] [address] [id number] [place] [address]121 Nov, [facility] [place] [facility] [address] [id number] [place] [address] 6809 Nov, [facility] [place] [facility] [address] [id number] [place] [address] 9547 Oct, [facility] [place] [facility] [address] [id number] [place] [address]- 9414 Oct, [facility] [place] [facility] [address] [id number] [place] [address] 7636 Oct, [facility] [place] [facility] [address] [id number] [place] [address] [address] Sep, [facility] [place] [facility] [address] [id number] [place] [address] 3195 Sep, [facility] [place] [facility] [address] [id number] [place] [address] 2878 Sep, [facility] [address] [id number] [place] [address] 0558 Sep, [facility] [place] [facility] [address] [id number] [place] [address]- 8611 Sep, [facility] [address] [id number] [place] [address]- 6455 Sep, [facility] [place] [facility] [address] [id number] [place] [address] 7208 August, [facility] [address] [id number] [place] [address]- 6269 August, [facility] [address] [id number] [place] [address] 0832 August, [facility] [address] [id number] [place] [address] 5829 August, [facility] [place] [facility] [address] [id number] [place] [address]- 4359 August, [facility] [address] [id number] [place] [address]- 1685 August, [facility] [place] [facility] [address] [id number] [place] [address]- 1327 August, [facility] [address] [id number] [place] [address]- 4416 Jul, [facility] [place] [facility] [address] [id number] [place] [address] 3349 Jul, [facility] [place] [facility] [address] [id number] [place] [address]- 7814 Jun, [facility] [place] [facility] [address] [id number] [place] [address]- 2123 Jun, [facility] [place] [facility] [address] [id number] [place] [address]- 1352 May, [facility] [place] [facility] [address] [id number] [place] [address] 8219 May, [facility] [address] [id number] [place] [address] Apr, [facility] [address] [id number] [place] [address]- 7411 Mar, [facility] [address] [id number] [place] [address]- 2410 Mar, [facility] [address] [id number] [place] [address]- 7096 Mar, [facility] [address] [id number] [place] [address]- 0421 Mar, [facility] [address] [id number] [place] [address]- 5121 Mar, [facility] [address] [id number] [place] [address]- 0665 Mar, [facility] [address] [id number] [place] [address]- 8877 Feb, [facility] [address] [id number] [place] [address]- 2872 Feb, [facility] [address] [id number] [place] [address]- 9867 Feb, [facility] [place] [facility] [address] [id number] [place] [address]- 2647 Feb, [facility] [address] [id number] [place] [address]- 9301 Feb, [facility] [place] [facility] [address] [id number] [place] [address]- 9233 Feb, [facility] [place] [facility] [address] [id number] [place] [address]- 4781 Feb, [facility] [address] [id number] [place] [address]- 0264 Feb, [facility] [place] [facility] [address] [id number] [place] [address]- 9370 Jan, [facility] [place] [facility] [address] [id number] [place] [address]- 2795 Jan, [facility] [place] [facility] [address] [id number] [place] [address]- 6212 28 Dec, 2011 [facility] [place] [facility] [address] [id number] [place] [address]- 4235 Dec, [facility] [place] [facility] [address] [id number] [place] [address]- 6550 Dec, [facility] [place] [facility] [address] [id number] [place] [address]- 5667 Dec, [facility] [place] [facility] [address] [id number] [place] [address]- 4154 Dec, [facility] [place] [facility] [address] [id number] [address]- 3460 Nov, [facility] [place] [facility] [address] [id number] [place] [address]- 3786 Oct, [facility] [place] [facility] [address] [facility] [id number], [place] [address]- 8699 Oct, [facility] [place] [facility] [address] [facility] [id number], [place] [address]- 9006 Sep, [facility] [place] [facility] [address] [id number] [address]- 6219 Sep, [facility] [place] [facility] [address] [id number] [address]- 8767 Sep, [facility] [place] [facility] [address] [id number] [address]- 5867 Sep, [facility] [place] [facility] [address] [facility] [id number], [place] [address]- 1120 Sep, [facility] [place] [facility] [address] [id number] [address]- 2049 Sep, [facility] [address] [id number] [place] [address]- 1101 Sep, [facility] [place] [facility] [address] [id number] [place] [address]- 4630 Sep, [facility] [place] [facility] [address] [facility] [id number] [place] [address]- 6956 August, [facility] [place] [facility] [address] [id number] [place] [address]- 2711 August, [facility] [place] [facility] [address] [id number] [place] [address]- 6533 August, [facility] [place] [facility] [address] [id number] [place] [address]- 6630 Jul, [facility] [id number] [place] [address]- 2686 Jul, [facility] [place] [facility] [address] [facility] [id number] [place] [address]- 6151 Jun, [facility] [place] [facility] [address] [id number] [place] [address]- 9644 Jun, [facility] [place] [facility] [address] [id number] [place] [address]- 5706 Jun, [facility] [place] [facility] [address] [id number] [place] [address]- 2603 Jun, [facility] [place] [facility] [address] [facility] [id number] [place] [address]- 1722 May, [facility] [place] [facility] [address] [id number] [place] [address]- 8077 May, [facility] [place] [facility] [address] [id number] [place] [address]- 5316 Apr, [facility] [place] [facility] [address] [facility] [id number] [place] [address]- 9186 Apr, [facility] [place] [facility] [address] [id number] [place] [address]- 2699 Apr, [facility] [place] [facility] [address] [id number] [place] [address]- 1211 Mar, [facility] [place] [facility] [address] [id number] [place] [address]- 9954 Mar, [facility] [place] [facility] [address] [id number] [place] [address]- 5419 Mar, [facility] [place] [facility] [address] [id number] [place] [address]- 0489 Feb, [facility] [place] [facility] [address] [id number] [place] [address]- 2167 Feb, [facility] [place] [facility] [address] [id number] [place] [address] Feb, [facility] [place] [facility] [address] [id number] [place] [address]- 8060 Feb, [facility] [place] [facility] [address] [id number] [place] [address]- 7810 Jan, [facility] [place] [facility] [address] [id number] [place] [address]- 6549 Jan, [facility] [place] [facility] [address] [id number] [place] [address]- 3257 Jan, [facility] [place] [facility] [address] [id number] [place] [address]- 5349 Dec, [facility] [place] [facility] [address] [id number] [place] [address]- 3313 Oct, [facility] [place] [facility] [address] [id number] [place] [address]- 5219 Mar, [facility] [place] [facility] [address] [id number] [place] [address]- 2396 Feb, [facility] [place] [facility] [address] [id number] [place] [address]- 9704 Feb, [facility] [address] [id number] [address]- [address]46 May, [facility] [id number], [place] [address]- 2546 Apr, [facility] [id number], [place] [address]- 2546 Mar, [facility] [address]00565100[place] [address]- 2546 Jan, [facility] [address]00565100[place] [address]- 2546 Oct, [facility] [address]00565100[place], [place] [address]- 2546 Jul, [facility] [address]00565100[place] [address]- 2546 Mar, [facility] [address]00565[address] [address]- 2546 Feb, [facility] [address] [id number], [place] [address]- 5596 Jan, IMMUNIZATIONS No Known Immunizations SOCIAL HISTORY Never Assessed REASON FOR VISIT Controlled Med Refill PLAN OF CARE VITAL SIGNS MEDICATIONS Medication Instructions Dosage Frequency Start Date End Date Duration Status MS Contin 15 mg Orally every 12 hrs 1 tablet 12h 18 Dec, 2016 28 days Active RESULTS No Results PROCEDURES No Known procedures INSTRUCTIONS MEDICATIONS ADMINISTERED No Known Medications MEDICAL (GENERAL) HISTORY Type Description Date Medical [...]
--- OUTSIDE RECORDS SUMMARY | 2017-10-01 19:29 | XMS REPORT ---
Author Author KATHYA FISCHER Organization [employer] Address Unknown Phone Unavailable Care Team Providers Care Supervisor Porcel[place] Department Name Role Phone KATHYA FISCHER CP Unavailable Allergies, Adverse Reactions, Alerts Substance Reaction Event Type SulfADIAZINE Info Not Available Drug Allergy Lasix Info Not Available Drug Allergy Zinc Info Not Available Drug Allergy Cozaar Info Not Available Drug Allergy Androgel Info Not Available Drug Allergy rhubarb Info Not Available Non Drug Allergy raspberry Info Not Available Non Drug Allergy equal Info Not Available Non Drug Allergy sweet and low Info Not Available Non Drug Allergy horseradish Info Not Available Non Drug Allergy chromates Info Not Available Non Drug Allergy latex rash Non Drug Allergy Cyclobenzaprine Hcl Oral Tablet 10 10 Mg Tablet dc'd potential for ss Non Drug Allergy Problems Problem Type Condition Code Onset Dates Condition Status Assessment Type 2 diabetes mellitus without complication E11.9 Active Problem Obstructive sleep apnea G47.33 Active Problem Pain in joint, lower leg 719.46 Active Problem Diabetes 250.00 Active Problem Unspecified venous (peripheral) insufficiency 459.81 Active Problem Edema 782.3 Active Problem Other and unspecified hyperlipidemia 272.4 Active Problem Unspecified hypertensive heart disease without heart failure 402.90 Active Medications Medication Code System Code Instructions Start Date End Date Status Dosage Tylenol [facility] [address]-13 500 MG/15ML Orally not defined Vitamin B Complex [facility] 2001 [address]1405-24379 Orally not defined Metoprolol Tartrate [facility] 63279965448 100 MG TAKE ONE TABLET BY MOUTH TWICE DAILY Furosemide [facility] [address]-48 20 MG Orally Once a day 1 tablet Lyrica [facility] [address]-92 200 MG Orally Three times a day 1 capsule Actos [facility] [address]-44 15 MG Orally Once a day May 14, 2015 1 tablet Tramadol HCl [facility] [address]-32 50 MG Orally every 8 hrs prn TWO TABLETS Symbicort [facility] 2001 [address]-61 160-4.5 MCG/ACT Inhalation Twice a day Feb 19, 2015 1 puff Vitamin D [facility] 2001 [address]-34 1999 UNIT Orally not defined lidocaine topical NDC 0 5 %(700 mg/patch) Jan 31, 2013 3 PATCH by Topical route 1 time per day apply on bilateral wrist and left ankle Atorvastatin Calcium [facility] 2001 [address]-23 40 MG Orally Once a day 1 tablet Duloxetine HCl [facility] 2001 [address]-50 60 MG Orally Once a day 1 capsule Tamsulosin HCl [facility] 2001 [address]-41 0.4 MG Orally Once a day 1 capsule 30 minutes after the same meal each day Duloxetine HCl [facility] 2001 [address]-56 30 MG Orally Twice a day 1 capsule Fish Oil [facility] 2001 82116-87784 1200 MG Orally Once a day 1 capsule Aspirin [facility] 2001 [address]-75 325 MG Orally Once a day 1 tablet Amitriptyline HCl [facility] 76835469673 100 MG TAKE ONE TABLET BY MOUTH ONCE DAILY Procedures Procedure Coding System Code Date Office Visit, Est Pt., Level 3 CPT-4 22545 May 14, 2015 GLYCATED HEMOGLOBIN TEST CPT-4 61303 May 14, 2015 Vital Signs Date/Time: May 14, 2015 Temperature 97.5 F Weight 374 lbs Height 71 in BMI 52.16 Index Blood Pressure Diastolic 88 mmHg Blood Pressure Systolic 164 mmHg Cardiac Monitoring Heart Rate 108 bpm Results No Known Results Summary Purpose [employer] Submission
--- OUTSIDE RECORDS SUMMARY | 2017-10-01 19:29 | XMS REPORT ---
Author KATHYA Samuel Organization [employer] Address Unknown Phone Unavailable Care Team Providers Care Horticulture Superintendent Name Role Phone KATHYA FISCHER CP Unavailable Allergies No Known Allergies Problems Problem Type Condition Code Onset Dates Condition Status Problem Edema 782.3 Active Problem Unspecified hypertensive heart disease without heart failure 402.90 Active Problem Unspecified venous (peripheral) insufficiency 459.81 Active Problem Hypertension, benign I10 Active Problem Diabetes type 2, uncontrolled E11.65 Active Problem Diabetes type 2, controlled E11.9 Active Problem Pain in joint, lower leg 719.46 Active Problem Other and unspecified hyperlipidemia 272.4 Active Problem Diabetes 250.00 Active Problem Obstructive sleep apnea G47.33 Active Medications Medication Code System Code Instructions Start Date End Date Status Dosage Tramadol HCl [facility] [address]-12 50 MG Orally every 8 hrs prn TWO TABLETS Lyrica [facility] [address]-20 200 MG Orally Three times a day 1 capsule Results No Known Results Summary Purpose [employer] Submission
--- OUTSIDE RECORDS SUMMARY | 2017-10-01 19:29 | XMS REPORT ---
Author Author KATHYA FISCHER Organization [facility] Address [address] [place] [address] Care Team Providers Care Outside Sales Name Role Phone KATHYA FISCHER Unavailable PROBLEMS Type Condition ICD9-CM Code SWH15-OO Code Onset Dates Condition Status SNOMED Code Problem Hypertension, benign I10 Active 50533139 Problem Obstructive sleep apnea G47.33 Active 03476680 Problem Controlled type 2 diabetes mellitus without complication, without long -term current use of insulin E11.9 Active 292796273 Problem 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 Active 38476566 Problem Arthritis M19.90 Active 7334611 Problem Uncontrolled type 2 diabetes mellitus without complication, without long-term current use of insulin E11.65 Active 574516952 Problem Polyneuropathy G62.9 Active 48245841 Problem Fibromyalgia M79.7 Active 820999154 ALLERGIES No Information ENCOUNTERS Encounter Location Date Diagnosis [facility] [id number] [place] [address] 88782- 2132 Jun, Hypertension, benign I10 ; Arthritis M19.90 ; alf current use 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 Z79.891 and Uncontrolled type 2 diabetes mellitus without complication, without long-term current use of insulin E11.65 [facility] [id number] [place] [address] 02250 -5137 Jun, Acute nasopharyngitis J00 and BMI 50.0-59.9, adult Z68.43 [facility] [id number] [place] [address] 53102- 3048 Jun, Fibromyalgia M79.7 [facility] [id number] [place] [address] 49865- 6880 May, [facility] [id number] [place] [address] 11818- 2830 May, Fibromyalgia M79.7 [facility] [address], [place] [address] 2546 Apr, Fibromyalgia M79.7 [facility] [id number] [place] [address] 72254 2546 Apr, [facility] [id number] [place] [address] 26386 2546 Apr, [facility] [id number] [place] [address] 00729 2546 Apr, Arthritis M19.90 [facility] [id number] [place] [address] 12879- 2546 Apr, Arthritis M19.90 [facility] [id number] [place] [address] 71331 2546 Apr, Arthritis M19.90 and Controlled type 2 diabetes mellitus without complication, without long-term current use of insulin E11.9 [facility] [id number] [place] [address] 65761 2546 Apr, [facility] [id number] [place] [address] 33022 2546 Apr, Fibromyalgia M79.7 [facility] [id number] [place] [address] 62040 2546 Mar, [facility] [address] [place] [address] 87992 2546 Mar, [facility] [address], [place] [address] 2546 Mar, Fibromyalgia M79.7 [facility] [address] [place] [address], [place] [address] 2546 Feb, [facility] [address], [place] [address] 2546 Feb, [facility] [address] [place] [address] 99676 2546 Feb, [facility] [id number] [place] [address] 21086- 6906 Feb, Fibromyalgia M79.7 [facility] [id number] [place] [address] 40645- 4405 Feb, Diabetes type 2, uncontrolled E11.65 and Encounter for immunization Z23 [facility] [id number] [place] [address] 32833- 2337 Jan, [facility] [id number] [place] [address] 99957- 8230 Jan, Fibromyalgia M79.7 [facility] [id number] [place] [address] 06950- 9256 Dec, [facility] [id number] [place] [address] 45204- 8872 Dec, Fibromyalgia M79.7 [facility] [id number] [place] [address] 43119- 7119 Nov, [facility] [id number] [place] [address] 75098- 7640 Nov, [facility] [id number] [place] [address] 38288- 2486 Nov, 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 and Polyneuropathy G62.9 [facility] [id number] [place] [address] 10416- 8634 Nov, [facility] [id number] [place] [address] 92735- 5026 Nov, [facility] [id number] [place] [address] 87479- 8101 Oct, Diabetes type 2, uncontrolled E11.65 [facility] [id number] [place] [address] 99604- 2965 Oct, Diabetes type 2, uncontrolled E11.65 ; Polyneuropathy G62.9 and Pain in right wrist M25.531 [facility] [address], [place] [address]- 9146 Oct, [facility] [id number] [place] [address] 98111- 9156 Oct, Pain in left shoulder M25.512 [facility] [id number], [place] [address] 2546 Sep, [facility] [id number] [place] [address] 53581 2546 Sep, Pain in left shoulder M25.512 [facility] [address] [place] [address] 32964- 4806 Sep, [facility] [id number] [place] [address] 18284- 1211 August, Pain in left shoulder M25.512 [facility] [id number] [place] [address] 52245- 2366 Jul, [facility] [address] [place] [address] 88766- 8972 Jul, [facility] [id number] [place] [address] 52163- 1593 Jul, Pain in left shoulder M25.512 [facility] [address], [place] [address]- 1566 Jun, [facility] [id number], [place] [address] 2546 Jun, [facility] [address], [place] [address] 2546 Jun, Diabetes type 2, uncontrolled E11.65 ; Fibromyalgia M79.7 and Arthritis M19.90 [facility] [address], [place] [address]- 0316 Jun, Pain in left shoulder M25.512 [facility] [address] [place] [address] 50139- 6836 May, [facility] [id number] [address]- 6249 May, Diabetes type 2, controlled E11.9 [facility] [address] 9997 17 May, 2016 [facility] [address], [place] [address]- 0840 May, Uncontrolled type 2 diabetes mellitus without complication, without long-term current use of insulin E11.65 [facility] [address], [place] [address]- 1886 May, Pain in left shoulder M25.512 [facility] [address] [place] [address] 19576- 7557 03 May, 2016 Diabetes type 2, controlled E11.9 and Uncontrolled type 2 diabetes mellitus without complication, without long-term current use of insulin E11.65 [facility] [address], [place] [address]- 0925 Apr, [facility] [address], [place] [address]- 8305 Apr, [facility] [address] [place] [address] 26211- 9257 Mar, [facility] [address], [place] [address]- 3705 Mar, [facility] [address], [place] [address]- 3141 Mar, [facility] [address], [place] [address]- 6935 Feb, [facility] [address] [address] Feb, Dental examination Z01.20 [facility] [address], [place] [address]- 3844 Jan, [facility] [address] [place] [address]- 6148 14 Dec, 2015 [facility] [address] [id number] [place] [address]- 2280 Dec, [facility] [address] [id number] [place] [address]- 7829 Dec, [facility] [address] [id number] [place] [address]- 5394 Dec, Diabetes type 2, controlled E11.9 [facility] [address] [id number] [place] [address]- 3189 Nov, [facility] [address] [id number] [place] [address]- 7960 Nov, [facility] [address] [facility] [id number] [place] [address]- 8634 Nov, [facility] [address] [facility] [id number] [place] [address]- 4828 Nov, [facility] [address] [facility] [id number] [place] [address]- 6333 Oct, [facility] [address] [facility] [id number] [place] [address]- 6705 Oct, [facility] [address] [facility] [id number] [place] [address]- 9495 Oct, [facility] [address] [facility] [id number] [place] [address]- 7812 Sep, [facility] [address] [id number] [place] [address]- 9036 Sep, Diabetes type 2, controlled E11.9 [facility] [address] [facility] [id number] [place] [address]- 2568 Sep, Diabetes type 2, controlled E11.9 [facility] [address] [id number] [place] [address]- 1405 August, [facility] [id number] [place] [address] 88533- 2656 August, [facility] [address] 72080- 1815 August, Type 2 diabetes mellitus without complication E11.9 and Pain in left shoulder M25.512 [facility] [id number] [place] [address] 84167- 3964 Jul, [facility] [address] 96978- 2113 Jul, Diabetes type 2, controlled E11.9 and Hypertension, benign I10 [facility] [address] 79983- 8422 Jun, [facility] [address] 20010- 9211 Jun, [facility] [address] 66982- 4333 Jun, Diabetes 250.00 [facility] [address] 02168- 3069 Jun, [facility] [id number] [place] [address] 92748- 2903 May, Diabetes type 2, uncontrolled E11.65 [facility] [id number] [place] [address] 02435- 4787 May, [facility] [id number] [place] [address] 70899- 9987 Apr, Type 2 diabetes mellitus without complication E11.9 [facility] [id number] [place] [address] 04499- 1914 Apr, Encounter for immunization Z23 [facility] [id number] [place] [address] 41241- 9758 Apr, [facility] [id number] [place] [address] 02070- 8813 Mar, [facility] [id number] [place] [address]- 0737 Mar, [facility] [address] [place] [place] [address]- 7331 Mar, [facility] [id number] [place] [place] [address]- 3880 Feb, [facility] [address] [place] [address], [place] [address]- 6237 Jan, [facility] [id number] 9015 Jan, [facility] [address] [place] [address]- 9550 Jan, [facility] [address] [place] [place] [address]- 2913 Dec, Diabetes 250.00 and COPD (chronic obstructive pulmonary disease) 496 [facility] [address], [place] [address]- 3808 Dec, [facility] [address], [place] [address]- 6381 Dec, [facility] [address], [place] [address]- 3903 Nov, [facility] [id number], [place] [address]- 0238 Oct, Diabetes 250.00 [facility] [id number], [place] [address]- 6369 Sep, [facility] [id number] [place] [place] [address]- 0177 Sep, [facility] [id number], [place] [address]- 0540 Sep, [facility] [id number], [place] [address]- 1892 Sep, Diabetes 250.00 [facility] [address] [facility] [id number], [place] [address]- 7444 Sep, [facility] [address], [place] [address]- 6103 Sep, [facility] [address] 9812 August, Hypertension, essential, benign 401.1 ; Coronary atherosclerosis of [place] coronary artery 414.01 and Diabetic neuropathy associated with type 2 diabetes mellitus 250.60 [facility] [address], [place] [address]- 2023 Jul, [facility] [id number], [place] [address]- 7392 Jul, [facility] [address], [place] [address]- 4441 Jul, [facility] [address], [place] [address]- 4641 Jun, [facility] [address], [place] [address]- 4088 Jun, [facility] [address], [place] [address]- 1255 Jun, [facility] [address], [place] [address]- 3846 Jun, [facility] [address], [place] [address]- 2889 Jun, [facility] [id number], [place] [address]- 3072 May, [facility] [address], [place] [address]- 7486 May, [facility] [id number], [place] [address]- 1595 May, [facility] [address] [place] [address]- 9871 May, 2014 [facility] [address] [id number] [place] [address]- 3348 May, 2014 [facility] [place] [facility] [address] [id number] [place] [address]- 0066 May, 2014 [facility] [place] [facility] [address] [id number] [place] [address]- 2237 May, [facility] [place] [facility] [address] [id number] [place] [address]- 4945 Apr, [facility] [place] [facility] [address] [id number] [place] [address]- 8691 Apr, [facility] [place] [facility] [address] [id number] [place] [address]- 1418 Apr, [facility] [place] [facility] [address] [id number] [place] [address]- 3310 Apr, [facility] [place] [facility] [address] [id number] [place] [address]- 0492 Mar, [facility] [place] [facility] [address] [id number] [place] [address]- 9136 Mar, [facility] [place] [facility] [address] [facility] [id number] [place] [address]- 1165 Mar, [facility] [place] [facility] [address] [id number] [place] [address]- 6748 Mar, [facility] [place] [facility] [address] [id number] [place] [address]- 8834 Feb, [facility] [place] [facility] [address] [id number] [place] [address]- 7047 Feb, [facility] [place] [facility] [address] [id number] [place] [address]- 7531 Feb, [facility] [place] [facility] [address] [id number] [place] [address]- 1260 Feb, [facility] [place] [facility] [address] [id number] [place] [address]- 2223 Feb, [facility] [place] [facility] [address] [id number] [place] [address]- 4692 Feb, [facility] [place] [facility] [address] [id number] [place] [address]- 8840 Feb, [facility] [place] [facility] [address] [id number] [place] [address]- 7094 Jan, [facility] [place] [facility] [address] [id number] [place] [address]- 1687 Jan, [facility] [place] [facility] [address] [id number] [place] [address]- 1881 Dec, [facility] [place] [facility] [address] [id number] [place] [address]- 9451 Dec, [facility] [place] [facility] [address] [id number] [place] [address]- 5709 Dec, [facility] [place] [facility] [address] [id number] [place] [address]- 4757 Dec, [facility] [place] [facility] [address] [id number] [place] [address]- 9951 Dec, [facility] [place] [facility] [address] [id number] [place] [address]- 4862 Dec, [facility] [place] [facility] [address] [id number], [place] [address]- 6156 Dec, [facility] [place] [facility] [address] [id number] [place] [address]- 8462 Dec, [facility] [place] [facility] [address] [id number] [place] [address]- 2252 Nov, [facility] [place] [facility] [address] [id number] [place] [address]- 7552 Nov, [facility] [place] [facility] [address] [id number], [place] [address]- 5656 Nov, [facility] [place] [facility] [address] [id number] [place] [address]- 5590 Nov, [facility] [place] [facility] [address] [id number] [place] 6941 Oct, [facility] [place] [facility] [address] [id number] [place] [address]- 2049 Oct, [facility] [place] [facility] [address] [id number] [place] [address]- 2134 Oct, [facility] [place] [facility] [address] [id number] [place] [address]- 1863 Oct, [facility] [place] [facility] [address] [id number] [place] [address]- 3811 Oct, [facility] [place] [facility] [address] [id number] [place] [address]- 2896 Oct, [facility] [place] [facility] [address] [id number] [place] [address]- 7015 Oct, [facility] [place] [facility] [address] [id number] [place] [address]- 4720 Oct, [facility] [place] [facility] [address] [id number] [place] [address]- 9353 Sep, [facility] [place] [facility] [address] [id number] [place] [address]- 1539 Sep, [facility] [place] [facility] [address] [id number] [place] [address]- 8288 August, [facility] [place] [facility] [address] [id number] [place] [address]- 5018 August, [facility] [place] [facility] [address] [id number] [place] [address]- 9721 Jul, [facility] [place] [facility] [address] [id number] [place] [address]- 7998 Jul, [facility] [place] [facility] [address] [id number] [place] [address]- 2581 Jul, [facility] [place] [facility] [address] [id number] [place] [address]- 1047 Jul, [facility] [place] [facility] [address] [id number] [place] [address]- 9543 Jul, [facility] [place] [facility] [address] [id number] [place] [address]- 8289 Jul, [facility] [place] [facility] [address] [id number] [place] [address]- 6055 Jul, [facility] [place] [facility] [address] [id number] [place] [address] Jul, [facility] [place] [facility] [address] [id number] [place] [address] Jun, [facility] [place] [facility] [address] [id number] [place] [address] Jun, [facility] [place] [facility] [address] [id number] [place] [address] Jun, [facility] [place] [facility] [address] [id number] [place] [address] Jun, [facility] [place] [facility] [address] [id number] [place] [address] May, [facility] [place] [facility] [address] [id number] [place] [address] May, [facility] [place] [facility] [address] [id number] [place] [address] Apr, [facility] [place] [facility] [address] [id number] [place] [address] Apr, [facility] [place] [facility] [address] [id number] [place] [address] Mar, [facility] [place] [facility] [address] [id number] [place] [address] Mar, [facility] [place] [facility] [address] [id number] [place] [address] 18 Mar, 2013 [facility] [place] [facility] [address] [id number] [place] [address] 18 Mar, 2013 [facility] [place] [facility] [address] [id number] [place] [address] Mar, [facility] [place] [facility] [address] [id number] [place] [address] Mar, [facility] [place] [facility] [address] [id number] [place] [address] Feb, [facility] [place] [facility] [address] [id number] [place] [address] Feb, [facility] [place] [facility] [address] [id number] [place] [address] Feb, [facility] [place] [facility] [address] [id number], [place] [address] Feb, [facility] [place] [facility] [address] [id number] [place] [address] Feb, [facility] [place] [facility] [address] [id number], [place] [address] Feb, [facility] [place] [facility] [address] [id number], [place] [address] Feb, [facility] [place] [facility] [address] [id number], [place] [address] 12 Feb, 2013 [facility] [place] [facility] [address] [id number], [place] [address] 15 Jan, 2013 [facility] [place] [facility] [address] [id number], [place] [address] 15 Jan, 2013 [facility] [place] [facility] [address] [id number], [place] [address] 14 Jan, 2013 [facility] [place] [facility] [address] [id number] [place] [address] 14 Jan, 2013 [facility] [address] [id number] [place] [address] 18 Dec, 2012 [facility] [place] [facility] [address] [id number] [place] [address] Dec, [facility] [address] [id number] [place] [address] Dec, [facility] [place] [facility] [address] [id number] [place] [address] Nov, [facility] [place] [facility] [address] [id number] [place] [address] Nov, [facility] [place] [facility] [address] [id number] [place] [address] Oct, [facility] [place] [facility] [address] [id number] [place] [address] Oct, [facility] [place] [facility] [address] [id number] [place] [address] Oct, [facility] [place] [facility] [address] [id number] [place] [address] Sep, [facility] [place] [facility] [address] [id number] [place] [address] Sep, [facility] [place] [facility] [address] [id number] [place] [address] Sep, [facility] [place] [facility] [address] [id number] [place] [address] Sep, [facility] [place] [facility] [address] [id number] [place] [address]- [address] Sep, [facility] [place] [facility] [address] [id number] [place] [address] Sep, [facility] [place] [facility] [address] [id number] [place] [address] August, [facility] [place] [facility] [address] [id number] [place] [address] August, [facility] [address] [id number] [place] [address] August, [facility] [address] [id number] [place] [address] August, [facility] [address] [id number] [place] [address] August, [facility] [address] [id number] [place] [address] August, [facility] [facility] [address] [id number] [place] [address] August, [facility] [address] [id number] [place] [address] Jul, [facility] [address] [id number] [place] [address] Jul, [facility] [address] [id number] [place] [address] Jun, [facility] [address] [id number] [place] [address] Jun, [facility] [address] [id number] [place] [address] May, [facility] [address] [id number] [place] [address] May, [facility] [address] [id number] [place] [address] Apr, [facility] [address] [id number] [place] [address] Mar, [facility] [address] [id number] [place] [address] Mar, [facility] [address] [id number], [place] [address] Mar, [facility] [place] [facility] [address] [id number] [place] [address] Mar, [facility] [place] [facility] [address] [id number], [place] [address] Mar, [facility] [place] [facility] [address] [facility] [id number] [place] [address] Mar, [facility] [place] [facility] [address] [id number], [place] [address] Feb, [facility] [place] [facility] [address] [id number] [place] [address] Feb, [facility] [place] [facility] [address] [id number] [place] [address] Feb, [facility] [place] [facility] [address] [id number], [place] [address] Feb, [facility] [place] [facility] [address] [id number], [place] [address] Feb, [facility] [place] [facility] [address] [id number], [place] [address] Feb, [facility] [place] [facility] [address] [facility] [id number], [place] [address] Feb, [facility] [place] [facility] [address] [id number], [place] [address] Feb, [facility] [place] [facility] [address] [id number], [place] [address] Jan, [facility] [place] [facility] [address] [id number], [place] [address] Jan, [facility] [place] [facility] [address] [id number], [place] [address] Dec, [facility] [place] [facility] [address] [id number], [place] [address] Dec, [facility] [place] [facility] [address] [id number] [place] [address] Dec, [facility] [place] [facility] [address] [id number] [place] [address] Dec, [facility] [place] [facility] [address] [id number] [place] [address] Dec, [facility] [place] [facility] [address] [id number] [place] [address] Nov, [facility] [place] [facility] [address] [id number] [place] [address] Oct, [facility] [place] [facility] [address] [id number] [place] [address] Oct, [facility] [place] [facility] [address] [id number] [place] [address] Sep, [facility] [place] [facility] [address] [id number] [place] [address] Sep, [facility] [place] [facility] [address] [id number] [place] [address]26 Sep, [facility] [place] [facility] [address] [id number] [place] [address] Sep, [facility] [place] [facility] [address] [id number] [place] [address] Sep, [facility] [place] [facility] [address] [id number] [place] [address] Sep, [facility] [place] [facility] [address] [id number] [place] [address] 7068 Sep, [facility] [place] [facility] [address] [id number] [place] [address] Sep, [facility] [place] [facility] [address] [id number] [place] [address] 1404 August, [facility] [place] [facility] [address] [id number] [place] [address] August, [facility] [address] [id number] [place] [address] August, [facility] [place] [facility] [address] [id number] [place] [address]- [address] Jul, [facility] [place] [facility] [address] [id number] [place] [address] Jul, [facility] [place] [facility] [address] [id number] [place] [address] Jun, [facility] [address] [id number] [place] [address] Jun, [facility] [place] [facility] [address] [id number] [place] [address] Jun, [facility] [place] [facility] [address] [id number] [place] [address]- [address] Jun, [facility] [place] [facility] [address] [id number] [place] [address]- [address] May, [facility] [place] [facility] [address] [id number] [place] [address] May, [facility] [place] [facility] [address] [id number] [place] [address] Apr, [facility] [place] [facility] [address] [id number] [place] [address] Apr, [facility] [place] [facility] [address] [id number] [place] [address] Apr, [facility] [place] [facility] [address] [id number] [place] [address] Mar, [facility] [place] [facility] [address] [id number] [place] [address] 39[address] Mar, [facility] [place] [facility] [address] [id number] [place] [address]- 1446 Mar, [facility] [place] [facility] [address] [id number] [place] [address]- 4714 11 Feb, 2011 [facility] [place] [facility] [address] [id number] [place] [address]- 9827 Feb, [facility] [place] [facility] [address] [id number] [place] [address]- [address] Feb, [facility] [place] [facility] [address] [id number] [place] [address]- 5198 Feb, [facility] [place] [facility] [address] [id number] [place] [address]- 6814 Jan, [facility] [place] [facility] [id number] [place] [address], [place] [address]- [address] 14 Jan, 2011 [facility] [place] [facility] [address] [id number] [place] [address]- [address] Jan, [facility] [place] [facility] [address] [facility] [id number] [place] [address]- [address] 16 Dec, 2010 [facility] [place] [facility] [address] [id number] [place] [address]- 9961 Oct, [facility] [place] [facility] [address] [facility] [id number] [place] [address]- [address] 24 Mar, 2010 [facility] [place] [facility] [address] [facility] [id number] [place] [address]- 1883 Feb, [facility] [place] [facility] [address] [id number] [place] [address]- 2589 15 Feb, 2010 [facility] [place] [facility] [address] [facility] [id number] [place] [address]- 8070 16 May, 2009 [facility] [place] [facility] [address] [id number] [place] [address] Apr, [facility] [place] [facility] [address] [facility] [id number] [place] [address]- 7898 29 Mar, 2009 [facility] [place] [facility] [address] [id number] [place] [address]- 1540 Jan, [facility] [address] [facility] [id number], [place] [address]- [address]46 Oct, [facility] [address] [facility] [id number], [place] [address]- [address] Jul, [facility] [address] [facility] [id number], [place] [address]- [address] Mar, [facility] [address] [id number], [place] [address]- [address] Feb, [facility] [address] [facility] [id number], [place] [address]- [address]256 Jan, IMMUNIZATIONS No Known Immunizations SOCIAL HISTORY Never Assessed REASON FOR VISIT Controlled Med Refill PLAN OF CARE VITAL SIGNS MEDICATIONS Medication Instructions Dosage Frequency Start Date End Date Duration Status Tramadol HCl 50 MG Orally every 8 hrs prn TWO TABLETS 28 days Active Lyrica 200 MG Orally Three times a day [...]
--- OUTSIDE RECORDS SUMMARY | 2017-10-01 19:30 | XMS REPORT ---
Author Author KATHYA FISCHER Organization [facility] Address [address] [place] [address] Care Team Providers Care Escalator Installer Name Role Phone KATHYA FISCHER Unavailable PROBLEMS Type Condition ICD9-CM Code [id number] Code Onset Dates Condition Status SNOMED Code Problem Hypertension, benign I10 Active 06879107 Problem Obstructive sleep apnea G47.33 Active 14197969 Problem Controlled type 2 diabetes mellitus without complication, without long -term current use of insulin E11.9 Active 858920744 Problem 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 Active 03625922 Problem Arthritis M19.90 Active 6254108 Problem Uncontrolled type 2 diabetes mellitus without complication, without long-term current use of insulin E11.65 Active 311807655 Problem Polyneuropathy G62.9 Active 65534625 Problem Fibromyalgia M79.7 Active [id number] ALLERGIES Substance Reaction Event Type Date Status Lasix Unknown Drug Allergy Oct, Active Cozaar Unknown Drug Allergy Oct, Active Zinc Unknown Drug Allergy Oct, Active SulfADIAZINE Unknown Drug Allergy Oct, Active Androgel Unknown Drug Allergy Oct, Active Wool itching Non Drug Allergy Oct, Active rhubarb Unknown Non Drug Allergy Oct, Active raspberry Unknown Non Drug Allergy Oct, Active equal Unknown Non Drug Allergy Oct, Active sweet and low Unknown Non Drug Allergy Oct, Active horseradish Unknown Non Drug Allergy Oct, Active chromates Unknown Non Drug Allergy Oct, Active latex rash Non Drug Allergy Oct, Active Cyclobenzaprine Hcl Oral Tablet 10 10 Mg Tablet dc'd potential for ss Non Drug Allergy Oct, Active ENCOUNTERS Encounter Location Date Diagnosis [facility] [address] [facility] [id number] [address] Jun, [facility] [address] [facility] [id number] [address] 14 Mar, 2018 Hypertension, benign I10 ; Arthritis M19.90 ; custodial current use 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 Z79.891 and Uncontrolled type 2 diabetes mellitus without complication, without long-term current use of insulin E11.65 [facility] [id number] [place] [address]505 -8198 Jun, Acute nasopharyngitis J00 and BMI 50.0-59.9, adult Z68.43 [facility] [address] [address]- [address] Jun, Fibromyalgia M79.7 [facility] [id number] [place] [address] 33305- 6217 May, [facility] [address] 01913- 1653 May, Fibromyalgia M79.7 [facility] [id number] [place] [address] 17869- 3152 Apr, Fibromyalgia M79.7 [facility] [id number] [place] [address] 32263- 5458 Apr, [facility] [id number] [place] [address] 43527- 4863 Apr, [facility] [id number] [place] [address] 30895- 7247 Apr, Arthritis M19.90 [facility] [id number] [place] [address] 56257 2542 Apr, Arthritis M19.90 [facility] [id number] [place] [address] 21421 2549 Apr, Arthritis M19.90 and Controlled type 2 diabetes mellitus without complication, without long-term current use of insulin E11.9 [facility] [id number] [place] [address] 04765- 4954 Apr, [facility] [id number] [place] [address] 05264- 8024 Apr, Fibromyalgia M79.7 [facility] [id number] [place] [address] 33228- 3430 Mar, [facility] [id number] [place] [address] 67727- 4294 Mar, [facility] [id number] [place] [address] 30328- 3247 Mar, Fibromyalgia M79.7 [facility] [id number] [place] [address] 27683- 1425 Feb, [facility] [id number] [place] [address] 47421- 4272 Feb, [facility] [id number] [place] [address] 93666- 8445 Feb, [facility] [address] 26216- 4467 Feb, Fibromyalgia M79.7 [facility] [id number] [place] [address] 62121- 1607 Feb, Diabetes type 2, uncontrolled E11.65 and Encounter for immunization Z23 [facility] [id number] [place] [address] 70466- 6647 Jan, [facility] [id number] [place] [address] 29109- 1625 Jan, Fibromyalgia M79.7 [facility] [id number] [place] [address] 59876- 3433 Dec, [facility] [id number] [place] [address] 21859- 4726 Dec, Fibromyalgia M79.7 [facility] [id number] [place] [address] 46313- 0603 Nov, [facility] [id number] [place] [address] 60621- 5440 Nov, [facility] [address] [place] [address]- 0890 Nov, 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 and Polyneuropathy G62.9 [facility] [id number] [place] [address] 06778- 2096 Nov, [facility] [id number] [place] [address] 27010- 0260 Nov, [facility] [id number] [place] [address] 67377- 4550 Oct, Diabetes type 2, uncontrolled E11.65 [facility] [id number] [place] [address] 79452- 3618 Oct, Diabetes type 2, uncontrolled E11.65 ; Polyneuropathy G62.9 and Pain in right wrist M25.531 [facility] [id number] [place] [address] 05830- 8915 Oct, [facility] [id number] [place] [address] 13657- 2587 Oct, Pain in left shoulder M25.512 [facility] [id number] [place] [address] 59064- 6951 Sep, [facility] [id number] [place] [address] 49252- 1097 Sep, Pain in left shoulder M25.512 [facility] [address] [id number] [address]- 9361 Sep, [facility] [id number] [place] [address] 88958- 8983 August, Pain in left shoulder M25.512 [facility] [id number] [place] [address] 78405- 0137 Jul, [facility] [address] [address]- 6237 Jul, [facility] [id number] [place] [address] 64956- 9717 Jul, Pain in left shoulder M25.512 [facility] [address] [address]- 5306 Jun, [facility] [id number] [place] [address] 29342- 6056 Jun, [facility] [id number] [place] [address] 14333- 8517 Jun, Diabetes type 2, uncontrolled E11.65 ; Fibromyalgia M79.7 and Arthritis M19.90 [facility] [id number] [place] [address] 59216- 2948 Jun, Pain in left shoulder M25.512 [facility] [id number] [place] [address] 84176- 2389 May, [facility] [id number] [place] [address] 23692- 9557 May, Diabetes type 2, controlled E11.9 [facility] [id number] [place] [address] 91276- 6661 May, [facility] [id number] [place] [address] 14995- 4420 May, Uncontrolled type 2 diabetes mellitus without complication, without long-term current use of insulin E11.65 [facility] [address] [address]- 2398 May, Pain in left shoulder M25.512 [facility] [address] [address]- 4241 May, Diabetes type 2, controlled E11.9 and Uncontrolled type 2 diabetes mellitus without complication, without long-term current use of insulin E11.65 [facility] [address] [address]- 2376 Apr, [facility] [address] [address]- 1307 Apr, [facility] [address] [id number] [place] [address]- 9471 Mar, [facility] [address] [id number] [place] [address]- 8688 Mar, [facility] [address] [id number] [place] [address]- 9120 Mar, [facility] [address] [id number] [place] [address]- 7675 Feb, [facility] [address] [id number] [place] [id number] Feb, Dental examination Z01.20 [facility] [address] [id number] [place] [address]- 3175 Jan, [facility] [address] [id number] [place] [address]- 2113 Dec, [facility] [address] [id number] [place] [address]- 7457 Dec, [facility] [address] [id number] [place] [address]- 3642 Dec, [facility] [id number] [place] [address]- 8745 Dec, Diabetes type 2, controlled E11.9 [facility] [address] [id number] [place] [address]- 8080 Nov, [facility] [address] [id number] [place] [address]- 0928 Nov, [facility] [address] [id number] [place] [address]- 5100 Nov, [facility] [address] [id number] [place] [address]- 4147 Nov, [facility] [address] [id number] [place] [address]- 8670 Oct, [facility] [address] [address]- 9920 Oct, [facility] [address] [address]- 5043 Oct, [facility] [address] [address]- 8889 Sep, [facility] [id number] [place] [address] 26198- 9641 Sep, Diabetes type 2, controlled E11.9 [facility] [id number] [place] [address] 46585 2545 Sep, Diabetes type 2, controlled E11.9 [facility] [id number] [place] [address] 57850- 4404 August, [facility] [id number] [place] [address] 35159- 6002 August, [facility] [id number] [place] [address] 79416- 4031 August, Type 2 diabetes mellitus without complication E11.9 and Pain in left shoulder M25.512 [facility] [address] [address]- 8317 Jul, [facility] [address] [address]- 7383 Jul, Diabetes type 2, controlled E11.9 and Hypertension, benign I10 [facility] [address] [address]- 6560 Jun, [facility] [address] [address] 2546 Jun, [facility] [address] [address]- 2548 Jun, Diabetes 250.00 [facility] [address] [place] [address]- 2546 Jun, [facility] [id number] [place] [address] 26715- 3577 24 May, 2015 Diabetes type 2, uncontrolled E11.65 [facility] [id number] [place] [address] 28922- 0218 May, [facility] [id number] [place] [address] 36283- 5735 Apr, Type 2 diabetes mellitus without complication E11.9 [facility] [address] 33207- 5562 Apr, Encounter for immunization Z23 [facility] [id number] [place] [address] 21377- 2102 Apr, [facility] [id number] [place] [address] 43683- 4918 Mar, [facility] [id number] [place] [address] 82478- 7720 Mar, [facility] [id number] [place] [address] 09067- 1561 Mar, [facility] [id number] [place] [address] 87698- 6583 Feb, [facility] [id number] [place] [address] 34742- 5169 Jan, [facility] [id number] [place] [address] 25140- 5655 Jan, [facility] [id number] [place] [address] 16811- 9235 Jan, [facility] [id number] [place] [address] 07397- 1026 Dec, Diabetes 250.00 and COPD (chronic obstructive pulmonary disease) 496 [facility] [id number] [place] [address] 30540- 3865 Dec, [facility] [id number] [place] [address] 45577- 7080 Dec, [facility] [address] [address]- 8104 Nov, [facility] [address] [address]- 3644 Oct, Diabetes 250.00 [facility] [address] 2628 Sep, [facility] [address] [address]- 7847 Sep, [facility] [address] 3399 Sep, [facility] [address] 4459 Sep, Diabetes 250.00 [facility] [address] [address]- 0854 Sep, [facility] [address] [address]- 6696 Sep, [facility] [address] 6482 August, Hypertension, essential, benign 401.1 ; Coronary atherosclerosis of [place] coronary artery 414.01 and Diabetic neuropathy associated with type 2 diabetes mellitus 250.60 [facility] [address] [address]- 6202 Jul, [facility] [address] [address]- 1917 Jul, [facility] [address] 7172 Jul, [facility] [address] [address]- 1687 Jun, [facility] [address] [address]- 0523 Jun, [facility] [address] [place] [address]- 6679 Jun, [facility] [place] [facility] [address] [id number] [place] [address]- 8375 Jun, [facility] [place] [facility] [address] [id number] [place] [address]- 0659 Jun, [facility] [place] [facility] [address] [id number] [place] [address]- 2846 May, 2014 [facility] [place] [facility] [address] [id number] [place] [address]- 3180 May, [facility] [place] [facility] [address] [id number] [place] [address]- 0853 May, 2014 [facility] [place] [facility] [address] [id number] [place] [address]- 3235 May, [facility] [place] [facility] [address] [id number] [place] [address]- 6028 May, [facility] [place] [facility] [address] [id number] [place] [address]- 1374 May, [facility] [place] [facility] [address] [facility] [id number] [place] [address]- 8603 May, [facility] [place] [facility] [address] [facility] [id number] [place] [address]- 6876 Apr, [facility] [place] [facility] [address] [id number] [place] [address]- 7562 Apr, [facility] [place] [facility] [address] [id number] [place] [address]- 9749 Apr, [facility] [place] [facility] [address] [id number] [place] [address]- 8351 Apr, [facility] [place] [facility] [address] [id number] [place] [address]- 4401 Mar, [facility] [place] [facility] [address] [id number] [address]- 1464 Mar, [facility] [place] [facility] [address] [id number] [place] 5911 Mar, [facility] [place] [facility] [address] [id number] [place] [address]- 2419 Mar, [facility] [place] [facility] [address] [facility] [id number] [place] [address]- 1292 Feb, [facility] [place] [facility] [address] [id number] [place] [address]- 8496 Feb, [facility] [place] [facility] [address] [id number] [place] [address]- 1372 Feb, [facility] [place] [facility] [address] [id number] [place] [address]- 1491 Feb, [facility] [place] [facility] [address] [id number] [place] [address]- 3946 Feb, [facility] [place] [facility] [address] [id number] [place] [address]- 6674 Feb, [facility] [place] [facility] [address] [id number] [place] [address]- 0382 Feb, [facility] [place] [facility] [address] [id number] [place] [address]- 2869 Jan, [facility] [place] [facility] [address] [id number] [place] [address]- 0224 Jan, [facility] [place] [facility] [address] [id number] [address]- 1943 Dec, [facility] [place] [facility] [address] [id number] [place] [address]- 3191 Dec, [facility] [place] [facility] [address] [id number] [place] [address]- 1856 Dec, [facility] [place] [facility] [address] [id number] [place] [address]- 3931 Dec, [facility] [place] [facility] [address] [id number] [place] [address]- 6896 04 Dec, 2013 [facility] [place] [facility] [address] [id number] [place] [address]- 8379 04 Dec, 2013 [facility] [place] [facility] [address] [id number] [place] [address]- 9534 Dec, [facility] [place] [facility] [address] [id number] [place] [address]- 0657 Dec, [facility] [place] [facility] [address] [id number] [place] [address]- 5068 Nov, [facility] [place] [facility] [address] [id number] [place] [address]- 1238 Nov, [facility] [place] [facility] [address] [id number] [place] [address]- 9308 Nov, [facility] [place] [facility] [address] [id number] [place] [address]- 8029 Nov, [facility] [place] [facility] [address] [id number] [place] [address]- 9124 Oct, [facility] [place] [facility] [address] [id number] [place] [address]- 1372 Oct, [facility] [place] [facility] [address] [id number] [place] [address]- 9231 Oct, [facility] [place] [facility] [address] [id number] [place] [address]- 5409 Oct, [facility] [place] [facility] [address] [id number] [place] [address]- 8892 Oct, [facility] [place] [facility] [address] [id number] [place] [address]- 0116 Oct, [facility] [place] [facility] [address] [id number] [place] [address]- 8082 Oct, [facility] [place] [facility] [address] [id number] [place] [address]- 5168 Oct, [facility] [place] [facility] [address] [id number] [place] [address]- 5548 Sep, [facility] [place] [facility] [address] [id number] [place] [address]- 4759 Sep, [facility] [place] [facility] [address] [id number] [place] [address] August, [facility] [place] [facility] [address] [id number] [place] [address] August, [facility] [place] [facility] [address] [id number] [place] [address] Jul, [facility] [place] [facility] [address] [id number] [place] [address] Jul, [facility] [place] [facility] [address] [id number] [place] [address] Jul, [facility] [place] [facility] [address] [id number] [place] [address] Jul, [facility] [place] [facility] [address] [id number] [place] [address] Jul, [facility] [place] [facility] [address] [id number] [place] [address] Jul, [facility] [place] [facility] [address] [id number] [place] [address] Jul, [facility] [place] [facility] [address] [id number] [place] [address] Jul, [facility] [place] [facility] [address] [id number] [place] [address] Jun, [facility] [place] [facility] [address] [id number] [place] [address] Jun, [facility] [place] [facility] [address] [id number] [place] [address] Jun, [facility] [place] [facility] [address] [id number] [address] Jun, [facility] [address] [id number] [place] [address] 18 May, 2013 [facility] [place] [facility] [address] [id number] [place] [address] 18 May, 2013 [facility] [address] [id number] [place] [address] Apr, [facility] [place] [facility] [address] [id number] [place] [address] Apr, [facility] [address] [id number] [place] [address] Mar, [facility] [place] [facility] [address] [id number] [place] [address] Mar, [facility] [address] [facility] [id number] [place] [address] Mar, [facility] [place] [facility] [address] [id number] [place] [address] Mar, [facility] [address] [id number] [place] [address] Mar, [facility] [place] [facility] [address] [facility] [id number] [place] [address] Mar, [facility] [place] [facility] [address] [id number] [place] [address] Feb, [facility] [place] [facility] [address] [id number] [place] [address] Feb, [facility] [place] [facility] [address] [id number] [place] [address] Feb, [facility] [place] [facility] [address] [id number] [place] [address] Feb, [facility] [place] [facility] [address] [facility] [id number] [place] [address] Feb, [facility] [place] [facility] [address] [id number] [place] [address] 18 Feb, 2013 [facility] [place] [facility] [address] [id number] [place] [address] Feb, [facility] [place] [facility] [address] [id number] [place] [address] Feb, [facility] [place] [facility] [address] [id number] [place] [address] 15 Jan, 2013 [facility] [place] [facility] [address] [id number] [place] [address] 15 Jan, 2013 [facility] [place] [facility] [address] [id number] [place] [address] 14 Jan, 2013 [facility] [place] [facility] [address] [id number] [place] [address] 14 Jan, 2013 [facility] [place] [facility] [address] [id number] [place] [address] 18 Dec, 2012 [facility] [place] [facility] [address] [id number] [place] [address] Dec, [facility] [place] [facility] [address] [id number] [place] [address] 2012 [facility] [place] [facility] [address] [id number] [place] [address] Nov, [facility] [place] [facility] [address] [id number] [place] [address] Nov, [facility] [place] [facility] [address] [id number] [place] [address] 16 Oct, 2012 [facility] [place] [facility] [address] [id number] [place] [address] Oct, [facility] [place] [facility] [address] [id number] [place] [address] Oct, [facility] [place] [facility] [address] [id number] [place] [address] Sep, [facility] [address] [id number] [place] [address] Sep, [facility] [place] [facility] [address] [id number] [place] [address] Sep, [facility] [place] [facility] [address] [id number] [place] [address] Sep, [facility] [place] [facility] [address] [id number] [place] [address] Sep, [facility] [place] [facility] [address] [id number] [place] [address] Sep, [facility] [place] [facility] [address] [id number] [place] [address] August, [facility] [place] [facility] [address] [id number] [place] [address] August, [facility] [place] [facility] [address] [id number] [place] [address] August, [facility] [place] [facility] [address] [id number] [place] [address] August, [facility] [place] [facility] [address] [id number] [place] [address] August, [facility] [place] [facility] [address] [id number] [place] [address] August, [facility] [place] [facility] [address] [id number] [place] [address] August, [facility] [place] [facility] [address] [id number] [place] [address] Jul, [facility] [place] [facility] [address] [id number] [place] [address] Jul, [facility] [place] [facility] [address] [id number] [place] [address] Jun, [facility] [place] [facility] [address] [id number] [place] [address] Jun, [facility] [address] [id number] [place] [address] May, [facility] [address] [id number] [place] [address] 27[address] May, [facility] [address] [id number] [place] [address] 160[address] Apr, [facility] [address] [id number] [place] [address] Mar, [facility] [address] [id number] [place] [address] Mar, [facility] [address] [id number] [place] [address] 1228 Mar, [facility] [address] [id number] [place] [address] Mar, [facility] [address] [id number] [place] [address] Mar, [facility] [address] [id number] [place] [address] Mar, [facility] [address] [facility] [id number] [place] [address] 2015 Feb, [facility] [address] [id number] [place] [address] 25[address] Feb, [facility] [address] [id number] [place] [address] 2547 Feb, [facility] [place] [facility] [address] [id number] [place] [address] Feb, [facility] [place] [facility] [address] [id number] [place] [address] 4736 Feb, [facility] [address] [facility] [id number] [place] [address] Feb, [facility] [place] [facility] [address] [id number] [place] [address]101 Feb, [facility] [place] [facility] [address] [id number] [place] [address] Feb, [facility] [place] [facility] [address] [id number] [place] [address] Jan, [facility] [place] [facility] [address] [id number] [place] [address] Jan, [facility] [place] [facility] [address] [id number] [place] [address] 277[address] Dec, [facility] [place] [facility] [address] [id number] [place] [address] Dec, [facility] [place] [facility] [address] [facility] [id number] [place] [address] Dec, [facility] [place] [facility] [address] [id number] [place] [address] Dec, [facility] [place] [facility] [address] [facility] [id number] [place] [address] Dec, [facility] [place] [facility] [address] [facility] [id number] [place] [address] Nov, [facility] [place] [facility] [address] [facility] [id number] [place] [address] Oct, [facility] [place] [facility] [address] [id number] [place] [address] 8[address] Oct, [facility] [place] [facility] [address] [facility] [id number] [place] [address] Sep, [facility] [place] [facility] [address] [id number] [place] [address] 7196 Sep, [facility] [place] [facility] [address] [facility] [id number] [place] [address] 4970 Sep, [facility] [place] [facility] [address] [id number] [place] [address]61 Sep, [facility] [address] [id number] [place] [address]- 9420 Sep, [facility] [place] [facility] [address] [id number] [place] [address] 8802 Sep, [facility] [place] [facility] [address] [id number] [place] [address] 0804 Sep, [facility] [place] [facility] [address] [id number] [place] [address]- 0360 Sep, [facility] [place] [facility] [address] [id number] [place] [address] August, [facility] [place] [facility] [address] [id number] [place] [address]- 1565 August, [facility] [address] [facility] [id number] [place] [address] 478[address] August, [facility] [place] [facility] [address] [facility] [id number] [place] [address] 56[address] Jul, [facility] [place] [facility] [address] [id number] [place] [address]- 8817 Jul, [facility] [place] [facility] [address] [facility] [id number] [place] [address]- 9290 Jun, [facility] [place] [facility] [address] [id number] [place] [address]- 9534 Jun, [facility] [place] [facility] [address] [id number] [place] [address]- 7589 Jun, [facility] [place] [facility] [address] [id number] [place] [address]- 3379 Jun, [facility] [place] [facility] [address] [facility] [id number] [place] [address]- 9269 May, [facility] [place] [facility] [address] [facility] [id number] [place] [address]- 4669 May, [facility] [place] [facility] [address] [id number] [place] [address]- [address]604 16 Apr, 2011 [facility] [place] [facility] [address] [id number] [place] [address]- 6730 Apr, [facility] [place] [facility] [address] [id number] [place] [address]- 0365 Apr, [facility] [place] [facility] [address] [id number] [place] [address]- 2325 Mar, [facility] [place] [facility] [address] [id number] [place] [address] Mar, [facility] [place] [facility] [address] [id number] [place] [address]- 3907 Mar, [facility] [place] [facility] [address] [id number] [place] [address]- 9611 Feb, [facility] [place] [facility] [address] [id number] [place] [address]- 6598 Feb, [facility] [place] [facility] [address] [id number] [place] [address]- 2273 Feb, [facility] [place] [facility] [address] [id number] [place] [address]- 6022 Feb, [facility] [place] [facility] [address] [id number] [place] [address]- 9707 Jan, [facility] [place] [facility] [address] [id number] [place] [address]- 2503 14 Jan, 2011 [facility] [place] [facility] [address] [id number] [place] [address]- 1854 Jan, [facility] [place] [facility] [address] [id number] [place] [address]- 0791 16 Dec, 2010 [facility] [place] [facility] [address] [id number] [place] [address]- 2172 Oct, [facility] [place] [facility] [address] [id number] [place] [address]- 8852 Mar, [facility] [address] [id number] [address]- 64[address] Feb, [facility] [id number] [address]- 7676 Feb, [facility] [id number] [address]- 4820 May, [facility] [id number] [address]- 455[address] Apr, [facility] [id number] [address]- 478[address] Mar, [facility] [id number] [place] [address]- 9[address] Jan, [facility] [id number] [address]- 3738 Oct, [facility] [id number] [address]- 0557 Jul, [facility] [id number] [address]- 9694 Mar, [facility] [id number] [address]- 0881 Feb, [facility] [address] [id number] [address]- [address] Jan, IMMUNIZATIONS No Known Immunizations SOCIAL HISTORY Never Assessed REASON FOR VISIT Diabetes, PT has lots of pain all over his body- Moncho KELLY PLAN OF CARE Activity Details Follow Up 4 Weeks Reason:fibromyalgia VITAL SIGNS Height 71 in 2016-10-31 Weight 371.2 lbs 2016-10-31 Temperature 97.9 degrees Fahrenheit 2016-10-31 Heart Rate 72 bpm 2016-10-31 Respiratory Rate 22 2016-10-31 BMI 51.77 kg/m2 2016-10-31 Blood pressure systolic 122 mmHg 2016-10-31 Blood pressure diastolic 82 mmHg 2016-10-31 MEDICATIONS Medication Instructions Dosage Frequency Start Date End Date Duration Status Lyrica 200 MG Orally Three times a day 1 capsule 8h 28 days Active Blood Glucose Test 1 1 test Jul, Active potassium 1 tab Active lidocaine topical 5 %(700 mg/patch) 3 PATCH by Topical route 1 time per day apply on bilateral wrist and left ankle Jan, Active Cyclobenzaprine HCl 10 MG Orally Three times a day 1 tablet 8h Active Aspirin 325 MG Orally Once a day 1 tablet 24h Active Tylenol 500 MG/15ML Active Amitriptyline HCl 100 MG TAKE ONE TABLET BY MOUTH ONCE DAILY 90 Active Symbicort 160-4.5 MCG/ACT Inhalation Twice a day 2 puff 12h Feb, Active Atorvastatin Calcium 40 MG Orally Once a day 1 tablet 24h Active Duloxetine HCl 60 MG TAKE ONE CAPSULE BY MOUTH TWICE DAILY 30 Active Hydrochlorothiazide 25 MG Orally Once a day 1 tablet 24h 90 Active Silvadene 1 % Externally Once a day 1 application to affected area 24h Nov, Active Glucometer as directed Oct, Active Oxycodone HCl 5 mg Orally every 6 hrs 1 tablet 6h Oct, Active Fish Oil 1200 MG Orally Once a day 4 capsule 24h Active Furosemide 20 mg Orally Once a day 2 tablet in the AM and 1 tablet in PM 24h Active True Metrix Blood Glucose Test - once a day Active Viagra 100 MG Orally Once a day 1 tablet as needed 24h Active Lancets - as directed Oct, Active Vitamin D 2000 UNIT Active Cymbalta 30 MG TAKE ONE CAPSULE BY MOUTH DAILY ALONG WITH DULOXETINE 60 MG 30 Active Metoprolol Tartrate 100 MG TAKE ONE TABLET BY MOUTH TWICE DAILY 90 Active GlipiZIDE 5 MG Orally Once a day 1 tablet 24h 90 Active Vitamin B Complex Active Bydureon 2 MG Subcutaneous once weekly Inject 28 Active ProAir HFA 108 (90 Base) MCG/ACT Inhalation every 4 hrs 2 puffs as needed 4h Active Tamsulosin HCl 0.4 MG Orally Once a day 1 capsule 30 minutes after the same meal each day 24h Active Parafon Forte DSC 500 MG Orally 2 times a day 1 tablet 12h 30 Active RESULTS Name Result Date Reference Range A1C (IN HOUSE) 2016-10-31 A1C IN HOUSE 8.4 4.3 - 5.6 % Previous A1c 10.1 Lot 0726 Exp date 07/2018 Xray : Wrist, Right 2 views (IN HOUSE) 2016-10-31 Xray : Wrist, Left 2 views (IN HOUSE) 2016-10-31 PROCEDURES Procedure Date Ordered Result Body Site GLYCATED HEMOGLOBIN TEST October 31, 2016 X-RAY EXAM OF WRIST October 31, 2016 INSTRUCTIONS MEDICATIONS ADMINISTERED No Known Medications MEDICAL (GENERAL) HISTORY Type Description Date Medical History Other and unspecified hyperlipidemia Medical History Unspecified hypertensive heart disease without heart failure Medical History Unspecified venous (peripheral) insufficiency Medical History Edema Medical History depression Medical History vitamin D deficiency Medical History type II diabetes Medical History sleep apnea with CPAP Medical History fibromyalgia Medical History obesity Medical History mortons neuroma (Dr. Masters) Surgical History tonsillectomy Hospitalization History surgeries
--- OUTSIDE RECORDS SUMMARY | 2017-10-01 19:30 | XMS REPORT ---
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 Name Role Phone KATHYA FISCHER Unavailable PROBLEMS Type Condition ICD9-CM Code ISY44-TT Code Onset Dates Condition Status SNOMED Code Problem Hypertension, benign I10 Active 29572967 Problem Obstructive sleep apnea G47.33 Active 68660802 Problem Controlled type 2 diabetes mellitus without complication, without long -term current use of insulin E11.9 Active 750175721 Problem 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 Active 88058512 Problem Arthritis M19.90 Active 9243256 Problem Uncontrolled type 2 diabetes mellitus without complication, without long-term current use of insulin E11.65 Active 015503667 Problem Polyneuropathy G62.9 Active 93314606 Problem Fibromyalgia M79.7 Active [id number] ALLERGIES No Information ENCOUNTERS Encounter Location Date Diagnosis [facility] [id number] [place] [address] 86974- 6805 Sep, [facility] [id number] [place] [address] 30673- 3693 Sep, [facility] [id number] [place] [address] 08177- 5237 Sep, Uncontrolled type 2 diabetes mellitus without complication, without long-term current use of insulin E11.65 and Fibromyalgia M79.7 [facility] [id number] [place] [address] 97427- 8169 August, [facility] [address] 73985- 9219 August, [facility] [address] 21233- 5993 August, [facility] [address] 25714- 7078 August, Fibromyalgia M79.7 [facility] [id number] [place] [address] 14643- 3471 Jul, Hypertension, benign I10 [facility] [address] 59126- 3396 Jul, Fibromyalgia M79.7 [facility] [address] 17261- 1372 Jul, [facility] [id number] [place] [address] 58513- 3217 Jun, [facility] [address] 77902- 9163 Jun, Hypertension, benign I10 ; Arthritis M19.90 ; 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 and Uncontrolled type 2 diabetes mellitus without complication, without long-term current use of insulin E11.65 [facility] [id number] [place] [address] 37932 -2994 Jun, Acute nasopharyngitis J00 and BMI 50.0-59.9, adult Z68.43 [place] [facility] [id number] [place] [address] 54940- 0760 Jun, Fibromyalgia M79.7 [facility] [id number] [place] [address] 88470- 7603 May, [facility] [id number] [place] [address] 10167- 5866 May, Fibromyalgia M79.7 [facility] [id number] [place] [address] 95917- 1818 Apr, Fibromyalgia M79.7 [facility] [id number] [place] [address] 53607- 5885 Apr, [facility] [id number] [place] [address] 90010- 4826 Apr, [place] [id number] [place] [address] 36916 2546 Apr, Arthritis M19.90 [facility] [address] 42476 2546 10 Apr, 2017 Arthritis M19.90 [facility] [id number] [place] [address] 38826 2546 Apr, Arthritis M19.90 and Controlled type 2 diabetes mellitus without complication, without long-term current use of insulin E11.9 [facility] [address] 91761- 2722 Apr, [facility] [address] 21159- 9016 Apr, Fibromyalgia M79.7 [facility] [address] 13959- 0616 Mar, [facility] [address] 84100- 4156 Mar, [facility] [address] 06768 2549 Mar, Fibromyalgia M79.7 [facility] [id number] [place] [address] 45327 2549 Feb, [facility] [id number] [place] [address] 82304- 3480 Feb, [facility] [id number] [place] [address] 76749 254 Feb, [facility] [id number] [place] [address] 96761 2546 Feb, Fibromyalgia M79.7 [facility] [id number] [place] [address] 50498 2547 Feb, Diabetes type 2, uncontrolled E11.65 and Encounter for immunization Z23 [facility] [address] 41520- 7074 Jan, [facility] [address] [address]- 6182 Jan, Fibromyalgia M79.7 [facility] [address] [address]- 4090 Dec, [facility] [address] [address]- 3486 Dec, Fibromyalgia M79.7 [facility] [address] [address]- 9059 Nov, [facility] [id number] [place] [address] 92906- 4146 Nov, [facility] [address] [place] [address] 68420- 4760 Nov, 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 and Polyneuropathy G62.9 [facility] [id number] [place] [address] 10957- 3933 Nov, [facility] [address] [address]- 9399 Nov, [facility] [id number] [place] [address] 19996- 6840 Oct, Diabetes type 2, uncontrolled E11.65 [facility] [address] [address]- 5041 Oct, Diabetes type 2, uncontrolled E11.65 ; Polyneuropathy G62.9 and Pain in right wrist M25.531 [facility] [address] [address]- 1908 Oct, [facility] [id number] [address]- 6234 Oct, Pain in left shoulder M25.512 [facility] [address] [address]- 8106 Sep, [facility] [id number] [address]- 2644 Sep, Pain in left shoulder M25.512 [facility] [id number] [place] [address] 40311- 1576 Sep, [facility] [id number] [address]- 5726 August, Pain in left shoulder M25.512 [facility] [id number] [place] [address] 67102- 3880 Jul, [facility] [id number] [place] [address] 08650- 4228 Jul, [facility] [id number] [place] [address] 33896- 6859 Jul, Pain in left shoulder M25.512 [facility] [id number] [place] [address] 51330- 1865 Jun, [facility] [id number] [address]- 0717 Jun, [facility] [id number] [place] [address] 17102- 5290 Jun, Diabetes type 2, uncontrolled E11.65 ; Fibromyalgia M79.7 and Arthritis M19.90 [facility] [id number] [address]- 6427 Jun, Pain in left shoulder M25.512 [facility] [address] [address]- 9577 May, [facility] [address] [address]- 8016 May, Diabetes type 2, controlled E11.9 [facility] [address] [address]- 2296 May, [facility] [address] [address]- 9497 May, Uncontrolled type 2 diabetes mellitus without complication, without long-term current use of insulin E11.65 [facility] [address] [address]- 4737 15 May, 2016 Pain in left shoulder M25.512 [facility] [address] [address]- 5876 03 May, 2016 Diabetes type 2, controlled E11.9 and Uncontrolled type 2 diabetes mellitus without complication, without long-term current use of insulin E11.65 [facility] [address] [id number] [address]- 6467 Apr, [facility] [id number] [place] [address] 00562- 0482 Apr, [facility] [id number] [place] [address] 13810- 0482 Mar, [facility] [id number] [place] [address] 78725- 0106 Mar, [facility] [id number] [place] [address] 12567- 5796 Mar, [facility] [address] [address]- 8432 Feb, [facility] [address] [id number] Feb, Dental examination Z01.20 [facility] [address] [address]- 0858 Jan, [facility] [address] [address]- 6153 14 Dec, 2015 [facility] [id number] [place] [address] [id number]- 1927 Dec, [facility] [address] 0381 Dec, [facility] [id number] [place] [address] 62888- 2191 Dec, Diabetes type 2, controlled E11.9 [facility] [address] [id number] [place] [address]- 1384 Nov, [facility] [address] [facility] [id number] [address]- 5074 Nov, [facility] [address] [id number] [address]- 3031 Nov, [facility] [address] [facility] [id number] [address]- 8852 Nov, [facility] [address] [facility] [id number] [place] [address]- 9502 Oct, [facility] [address] [facility] [id number] [place] [address]- 1829 Oct, [facility] [address] [facility] [id number] [address]- 2541 Oct, [facility] [address] [facility] [id number] [address]- 8803 Sep, [facility] [address] [facility] [id number] [address]- 8113 Sep, Diabetes type 2, controlled E11.9 [facility] [address] [facility] [id number] [address]- 6023 Sep, Diabetes type 2, controlled E11.9 [facility] [address] [facility] [id number] [address]- 8683 August, [facility] [address] [facility] [id number] [address]- 8731 August, [facility] [address] [facility] [id number] [place] [address]- 2709 August, Type 2 diabetes mellitus without complication E11.9 and Pain in left shoulder M25.512 [facility] [address] [facility] [id number] [address]- 1430 Jul, [facility] [address] [address]- 5874 Jul, Diabetes type 2, controlled E11.9 and Hypertension, benign I10 [facility] [address] [address]- 0319 Jun, [facility] [id number] [place] [address] 89319- 1958 Jun, [facility] [id number] [place] [address] 97252- 7974 Jun, Diabetes 250.00 [facility] [id number] [place] [address] 60770- 1514 Jun, [facility] [id number] [place] [address] 32515- 7183 May, Diabetes type 2, uncontrolled E11.65 [facility] [id number] [place] [address] 09665- 5502 May, [facility] [id number] [place] [address] 14134- 9002 Apr, Type 2 diabetes mellitus without complication E11.9 [facility] [id number] [place] [address] 36082- 9108 Apr, Encounter for immunization Z23 [facility] [address] [address]- 4201 Apr, [facility] [address] [address]- 1320 Mar, [facility] [address] [address]- 8816 Mar, [facility] [address] [address]- 9930 Mar, [facility] [address] [address]- 9052 Feb, [facility] [id number] [address]- 7586 Jan, [facility] [address] [address]- 6643 Jan, [facility] [address] [address]- 7630 Jan, [facility] [id number] [place] [address] 80539- 1101 Dec, Diabetes 250.00 and COPD (chronic obstructive pulmonary disease) 496 [facility] [address] [address]- 0699 Dec, [facility] [id number] [place] [address] 30770- 3802 Dec, [facility] [address] [address]- 1590 Nov, [facility] [id number] [place] [address] 00704- 4937 Oct, Diabetes 250.00 [facility] [address] [address]- 1101 Sep, [facility] [address] [address]- 4417 Sep, [facility] [address] [address]- 3039 Sep, [facility] [address] [address]- 2114 Sep, Diabetes 250.00 [facility] [address] [address]- 6079 Sep, [facility] [address] [address]- 6939 Sep, [facility] [id number] [address]- 6769 August, Hypertension, essential, benign 401.1 ; Coronary atherosclerosis of [place] coronary artery 414.01 and Diabetic neuropathy associated with type 2 diabetes mellitus 250.60 [facility] [address] [address]- 5044 29 Jul, 2014 [facility] [address] [facility] [id number] [place] [address]- 9634 14 Jul, 2014 [facility] [id number] [place] [address] 92977- 2142 Jul, [facility] [id number] [place] [address] 62595- 5098 Jun, [facility] [id number] [place] [address] 18176- 9508 Jun, [facility] [id number] [place] [address] 55128- 2313 Jun, [facility] [id number] [place] [address] 97052- 6816 Jun, [facility] [address] [address]- 2830 Jun, [facility] [id number] [place] [address] 21646- 3051 May, [facility] [address] [address]- 8473 May, [facility] [address] [address]- 7030 May, [facility] [address] [address]- 2543 May, [facility] [address] 0312 May, [facility] [address] 3996 May, [facility] [address] [address]- 7913 May, [facility] [place] [facility] [address] [id number] [place] [address]- 4162 Apr, [facility] [place] [facility] [address] [id number] [place] [address]- 4372 Apr, [facility] [place] [facility] [address] [facility] [id number] [place] [address]- 6523 Apr, [facility] [place] [facility] [address] [id number] [place] [address]- 9018 Apr, [facility] [place] [facility] [address] [id number] [place] [address]- 3419 Mar, [facility] [place] [facility] [address] [id number] [place] [address]- 8249 Mar, [facility] [place] [facility] [address] [facility] [id number] [place] [address]- 0264 Mar, [facility] [place] [facility] [address] [id number] [address]- 5039 Mar, [facility] [place] [facility] [address] [id number] [address]- 1638 Feb, [facility] [place] [facility] [address] [id number] [place] [address]- 9800 Feb, [facility] [place] [facility] [address] [id number] [address]- 1674 Feb, [facility] [place] [facility] [address] [id number] [address]- 4213 Feb, [facility] [place] [facility] [address] [id number] [address]- 3034 Feb, [facility] [place] [facility] [address] [facility] [id number] [address]- 8751 Feb, [facility] [place] [facility] [address] [facility] [id number] [address]- 1790 Feb, [facility] [place] [facility] [address] [id number] [place] [address]- 2427 Jan, [facility] [place] [facility] [address] [id number] [place] [address]- 9772 Jan, [facility] [place] [facility] [address] [id number] [place] [address]- 8589 Dec, [facility] [place] [facility] [address] [id number] [place] [address]- 3150 Dec, 2013 [facility] [place] [facility] [address] [id number] [place] [address]- 1906 Dec, [facility] [place] [facility] [address] [id number] [place] [address]- 9853 Dec, [facility] [place] [facility] [address] [id number] [place] [address]- 4708 Dec, [facility] [place] [facility] [address] [id number] [place] [address]- 1306 Dec, [facility] [place] [facility] [address] [id number] [place] [address]- 9681 Dec, [facility] [place] [facility] [address] [id number] [place] [address]- 1998 Dec, [facility] [place] [facility] [address] [id number] [place] [address]- 0621 Nov, [facility] [place] [facility] [address] [id number] [place] [address] Nov, [facility] [place] [facility] [address] [id number] [place] [address] Nov, [facility] [place] [facility] [address] [id number] [place] [address] Nov, [facility] [place] [facility] [address] [id number] [place] [address] Oct, [facility] [place] [facility] [address] [id number] [place] [address] Oct, [facility] [place] [facility] [address] [id number] [place] [address] [address] Oct, [facility] [place] [facility] [address] [id number] [place] [address] Oct, [facility] [place] [facility] [address] [id number] [place] [address] Oct, [facility] [place] [facility] [address] [id number] [place] [address] Oct, [facility] [place] [facility] [address] [id number] [place] [address] Oct, [facility] [place] [facility] [address] [id number] [place] [address] Oct, [facility] [place] [facility] [address] [id number] [place] [address] Sep, [facility] [place] [facility] [address] [id number] [place] [address] Sep, [facility] [place] [facility] [address] [id number] [place] [address] August, [facility] [place] [facility] [address] [id number] [place] [address] August, [facility] [place] [facility] [address] [id number] [place] [address] Jul, [facility] [place] [facility] [address] [id number] [place] [address] Jul, [facility] [place] [facility] [address] [id number] [place] [address] Jul, [facility] [place] [facility] [address] [id number] [place] [address] 1976 Jul, [facility] [place] [facility] [address] [id number] [place] [address] Jul, [facility] [place] [facility] [address] [id number] [place] [address] Jul, [facility] [address] [id number] [place] [address] Jul, [facility] [place] [facility] [address] [id number] [place] [address]- [address] Jul, [facility] [place] [facility] [address] [id number] [place] [address]- [address] Jun, [facility] [place] [facility] [address] [id number] [place] [address]- [address] Jun, [facility] [place] [facility] [address] [id number] [place] [address]- [address] Jun, [facility] [place] [facility] [address] [id number] [place] [address] Jun, [facility] [address] [facility] [id number] [place] [address]- [address] May, [facility] [place] [facility] [address] [id number] [place] [address] 1542 May, [facility] [place] [facility] [address] [facility] [id number] [place] [address]- [address] Apr, [facility] [place] [facility] [address] [facility] [id number] [place] [address] Apr, [facility] [place] [facility] [address] [id number] [place] [address] Mar, [facility] [place] [facility] [address] [id number] [place] [address] Mar, [facility] [place] [facility] [address] [id number] [place] [address] Mar, [facility] [place] [facility] [address] [id number] [place] [address]- [address] Mar, [facility] [place] [facility] [address] [facility] [id number] [place] [address]- [address] Mar, [facility] [place] [facility] [address] [id number] [place] [address]- [address] 18 Mar, 2013 [facility] [place] [facility] [address] [id number] [place] [address] Feb, [facility] [place] [facility] [address] [id number] [place] [address] Feb, [facility] [place] [facility] [address] [id number] [place] [address]- [address] Feb, [facility] [place] [facility] [address] [id number] [place] [address]- [address]186 Feb, [facility] [place] [facility] [address] [id number] [place] [address] Feb, [facility] [place] [facility] [address] [id number] [place] [address] Feb, [facility] [place] [facility] [address] [id number] [place] [address]- [address] Feb, [facility] [place] [facility] [address] [id number] [place] [address]- [address] 12 Feb, 2013 [facility] [place] [facility] [address] [id number] [place] [address] 15 Jan, 2013 [facility] [place] [facility] [address] [id number] [place] [address]- [address] 15 Jan, 2013 [facility] [place] [facility] [address] [id number] [place] [address]- [address] 14 Jan, 2013 [facility] [place] [facility] [address] [id number] [place] [address] 14 Jan, 2013 [facility] [place] [facility] [address] [id number] [place] [address] 18 Dec, 2012 [facility] [place] [facility] [address] [id number] [place] [address] 13 Dec, 2012 [facility] [place] [facility] [address] [id number] [place] [address] Dec, [facility] [address] [id number] [place] [address] Nov, [facility] [place] [facility] [address] [id number] [place] [address] Nov, [facility] [place] [facility] [address] [id number] [place] [address] Oct, [facility] [place] [facility] [address] [id number] [place] [address] Oct, [facility] [place] [facility] [address] [id number] [place] [address] Oct, [facility] [place] [facility] [address] [id number] [place] [address] Sep, [facility] [place] [facility] [address] [id number] [place] [address] Sep, [facility] [place] [facility] [address] [id number] [place] [address] Sep, [facility] [place] [facility] [address] [id number] [place] [address] Sep, [facility] [place] [facility] [address] [id number] [place] [address] Sep, [facility] [place] [facility] [address] [id number] [place] [address] Sep, [facility] [place] [facility] [address] [id number] [place] [address] August, [facility] [place] [facility] [address] [id number] [place] [address] August, [facility] [place] [facility] [address] [id number] [place] [address]708 August, [facility] [place] [facility] [address] [id number] [place] [address] August, [facility] [place] [facility] [address] [id number] [place] [address] 9187 August, [facility] [address] [id number] [place] [address] August, [facility] [address] [id number] [place] [address]776 August, [facility] [address] [id number] [place] [address] Jul, [facility] [address] [id number] [place] [address] Jul, [facility] [address] [id number] [place] [address] 6672 Jun, [facility] [address] [id number] [place] [address] Jun, [facility] [address] [id number] [place] [address]39 May, [facility] [address] [id number] [place] [address] 6770 May, [facility] [address] [id number] [place] [address] 6773 Apr, [facility] [address] [id number] [place] [address] Mar, [facility] [address] [id number] [place] [address] 2542 Mar, [facility] [address] [id number] [place] [address] Mar, [facility] [address] [id number] [place] [address] 9097 Mar, [facility] [address] [id number] [place] [address]276 Mar, [facility] [address] [id number] [place] [address] 6152 Mar, [facility] [place] [facility] [address] [id number] [place] [address] 8585 Feb, [facility] [place] [facility] [address] [id number] [place] [address]- 6[address] Feb, [facility] [place] [facility] [address] [id number] [place] [address] 8173 Feb, [facility] [place] [facility] [address] [id number] [place] [address] 3267 Feb, [facility] [place] [facility] [address] [id number] [place] [address]- 4856 Feb, [facility] [place] [facility] [address] [id number] [place] [address]- 1155 Feb, [facility] [place] [facility] [address] [facility] [id number] [place] [address] 3558 Feb, [facility] [place] [facility] [address] [id number] [place] [address] 0657 Feb, [facility] [place] [facility] [address] [id number] [place] [address] 5834 Jan, [facility] [place] [facility] [address] [id number] [place] [address] Jan, [facility] [place] [facility] [address] [facility] [id number] [place] [address] 28 Dec, 2011 [facility] [place] [facility] [address] [id number] [place] [address]00 19 Dec, 2011 [facility] [place] [facility] [address] [id number] [place] [address]137 18 Dec, 2011 [facility] [place] [facility] [address] [id number] [place] [address] 9464 18 Dec, 2011 [facility] [place] [facility] [address] [facility] [id number] [place] [address] 04 Dec, 2011 [facility] [place] [facility] [address] [id number] [place] [address] 2590 Nov, [facility] [place] [facility] [address] [id number] [place] [address] 8012 Oct, [facility] [place] [facility] [address] [id number] [place] [address] 6229 Oct, [facility] [place] [facility] [address] [id number] [place] [address] 9619 Sep, [facility] [place] [facility] [address] [id number] [place] [address]- 2191 Sep, [facility] [place] [facility] [address] [id number] [place] [address]- 2665 Sep, [facility] [place] [facility] [address] [id number] [place] [address]- 4306 Sep, [facility] [place] [facility] [address] [id number] [place] [address]- 1787 Sep, [facility] [place] [facility] [address] [id number] [place] [address]- 2074 Sep, [facility] [place] [facility] [address] [id number] [place] [address]- 9121 Sep, [facility] [place] [facility] [address] [id number] [place] [address]- 1420 Sep, [facility] [place] [facility] [address] [id number] [place] [address] 8847 August, [facility] [place] [facility] [address] [id number] [place] [address]- 0512 August, [facility] [place] [facility] [address] [id number] [place] [address]- 9921 August, [facility] [place] [facility] [address] [id number] [place] [address]- 9530 Jul, [facility] [place] [facility] [address] [id number] [place] [address]- 2886 Jul, [facility] [place] [facility] [address] [id number] [place] [address]- 8665 30 Jun, 2011 [facility] [address] [id number] [place] [address]- 4556 30 Jun, 2011 [facility] [place] [facility] [address] [id number] [place] [address] 2546 Jun, [facility] [place] [facility] [address] [id number] [place] [address]- 3226 Jun, [facility] [place] [facility] [address] [id number] [place] [address]- 3317 May, [facility] [place] [facility] [address] [id number] [place] [address]- 7466 May, [facility] [place] [facility] [address] [id number] [place] [address]- 3507 16 Apr, 2011 [facility] [place] [facility] [address] [id number] [place] [address] 7220 Apr, [facility] [address] [id number] [place] [address]- 0908 Apr, [facility] [place] [facility] [address] [id number] [place] [address]- 3563 Mar, [facility] [address] [id number] [place] [address]- 4406 Mar, [facility] [place] [facility] [address] [id number] [place] [address]- 3646 Mar, [facility] [place] [facility] [address] [id number] [place] [address]- 8081 Feb, [facility] [place] [facility] [address] [id number] [place] [address]- [address]706 Feb, [facility] [place] [facility] [address] [id number] [place] [address]- 2546 Feb, [facility] [place] [facility] [address] [id number] [place] [address]- 6266 09 Feb, 2011 [facility] [place] [facility] [address] [id number] [place] [address]- 1530 25 Jan, 2011 [facility] [place] [facility] [address] [id number] [place] [address]- 1641 14 Jan, 2011 [facility] [place] [facility] [address] [id number] [place] [address]- 0190 12 Jan, 2011 [facility] [place] [facility] [address] [id number] [place] [address]- 6255 16 Dec, 2010 [facility] [place] [facility] [address] [id number] [place] [address]- 6794 13 Oct, 2010 [facility] [place] [facility] [address] [id number] [place] [address]- 7943 24 Mar, 2010 [facility] [place] [facility] [address] [id number] [place] [address]- 7593 Feb, [facility] [place] [facility] [address] [id number] [place] [address]- 2708 Feb, [facility] [place] [facility] [address] [id number] [place] [address]- 9377 16 May, 2009 [facility] [place] [facility] [address] [id number] [place] [address]- 9640 Apr, [facility] [place] [facility] [address] [id number] [place] [address]- 4129 29 Mar, 2009 [facility] [place] [facility] [address] [id number] [place] [address]- 4433 30 Jan, 2009 [facility] [place] [facility] [address] [id number] [place] [address]- 2979 15 Oct, 2008 [facility] [place] [facility] [address] [id number] [place] [address]- 8650 16 Jul, 2008 [facility] [place] [facility] [address] [facility] [id number] [place] [address]- 3087 04 Mar, 2008 [facility] [place] [facility] [address] [facility] [id number] [place] [address] Feb, [facility] [address] [facility] [id number] [place] [address]- 6261 Jan, IMMUNIZATIONS No Known Immunizations SOCIAL HISTORY Never Assessed REASON FOR VISIT prior auth/ PLAN OF CARE VITAL SIGNS MEDICATIONS Unknown Medications RESULTS No Results PROCEDURES No Known procedures [...]
--- OUTSIDE RECORDS SUMMARY | 2017-10-01 19:31 | XMS REPORT ---
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 Name Role Phone KATHYA FISCHER Unavailable PROBLEMS Type Condition ICD9-CM Code MJD04-SY Code Onset Dates Condition Status SNOMED Code Problem Hypertension, benign I10 Active 90144776 Problem Obstructive sleep apnea G47.33 Active 72424068 Problem Controlled type 2 diabetes mellitus without complication, without long -term current use of insulin E11.9 Active 031602003 Problem 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 Active 59058851 Problem Arthritis M19.90 Active 3260815 Problem Uncontrolled type 2 diabetes mellitus without complication, without long-term current use of insulin E11.65 Active 168406189 Problem Polyneuropathy G62.9 Active 28315380 Problem Fibromyalgia M79.7 Active 250713624 ALLERGIES No Information ENCOUNTERS Encounter Location Date Diagnosis [facility] [id number] [place] [address] 96324- 5867 Sep, [facility] [address] 36966- 9771 August, [facility] [id number] [place] [address] 96159- 0890 August, [facility] [address] 16530- 5963 August, [facility] [id number] [place] [address] 63247- 0958 August, Fibromyalgia M79.7 [facility] [address] 42609- 1321 Jul, Hypertension, benign I10 [facility] [id number] [place] [address] 34748- 5137 Jul, Fibromyalgia M79.7 [facility] [id number] [place] [address] 01889- 5978 Jul, [facility] [id number] [place] [address] 03110- 8711 Jun, [facility] [id number] [place] [address] 29903- 3899 Jun, Hypertension, benign I10 ; Arthritis M19.90 ; penitentiary current use 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 Z79.891 and Uncontrolled type 2 diabetes mellitus without complication, without long-term current use of insulin E11.65 [facility] [id number] [place] [address] 27930 -9369 Jun, Acute nasopharyngitis J00 and BMI 50.0-59.9, adult Z68.43 [facility] [id number] [place] [address] 87294- 8736 Jun, Fibromyalgia M79.7 [facility] [id number] [place] [address] 17307- 1432 May, [facility] [id number] [place] [address] 42171- 4321 May, Fibromyalgia M79.7 [facility] [id number] [place] [address] 23246- 3372 Apr, Fibromyalgia M79.7 [facility] [id number] [place] [address] 80807- 3915 Apr, [facility] [id number] [place] [address] 96480- 5284 Apr, [facility] [id number] [place] [address] 02832- 3427 Apr, Arthritis M19.90 [facility] [id number] [place] [address] 72673- 5501 Apr, Arthritis M19.90 [facility] [address] 20781- 5266 Apr, Arthritis M19.90 and Controlled type 2 diabetes mellitus without complication, without long-term current use of insulin E11.9 [facility] [id number] [place] [address] 46410- 3029 Apr, [facility] [id number] [place] [address] 28163- 3596 Apr, Fibromyalgia M79.7 [facility] [id number] [place] [address] 62538- 0060 Mar, [facility] [id number] [place] [address] 66109- 3637 Mar, [facility] [id number] [place] [address] 88309- 1554 Mar, Fibromyalgia M79.7 [facility] [id number] [place] [address] 93023- 1272 Feb, [facility] [id number] [place] [address] 20986- 2991 Feb, [facility] [id number] [place] [address] 05097- 0693 Feb, [facility] [id number] [place] [address] 47320- 9990 Feb, Fibromyalgia M79.7 [facility] [id number] [place] [address] 38565- 0866 Feb, Diabetes type 2, uncontrolled E11.65 and Encounter for immunization Z23 [facility] [id number] [place] [address] 33045- 9833 Jan, [facility] [id number] [place] [address] 97796- 9595 Jan, Fibromyalgia M79.7 [facility] [id number] [place] [address] 85228- 5794 Dec, [facility] [address] [place] [address]- 4413 Dec, Fibromyalgia M79.7 [facility] [id number] [place] [address] 08988- 0066 Nov, [facility] [id number] [place] [address] 07008- 4325 Nov, [facility] [id number] [place] [address] 18393- 8891 Nov, 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 and Polyneuropathy G62.9 [facility] [id number] [place] [address] 12162- 3068 Nov, [facility] [id number] [place] [address] 70348- 4028 Nov, [facility] [id number] [place] [address] 69493- 5660 Oct, Diabetes type 2, uncontrolled E11.65 [facility] [id number] [place] [address] 85272- 4696 Oct, Diabetes type 2, uncontrolled E11.65 ; Polyneuropathy G62.9 and Pain in right wrist M25.531 [facility] [id number] [place] [address] 28817- 0143 Oct, [facility] [id number] [place] [address] 63257- 4917 Oct, Pain in left shoulder M25.512 [facility] [id number] [place] [address] 01171- 7361 Sep, [facility] [id number] [place] [address] 67526- 3826 Sep, Pain in left shoulder M25.512 [facility] [id number] [place] [address] 34084- 1565 Sep, [facility] [id number] [place] [address] 82005- 4943 August, Pain in left shoulder M25.512 [facility] [address] [address]- 1836 Jul, [facility] [id number] [place] [address] 19360- 0973 Jul, [facility] [id number] [place] [address] 94357- 0348 Jul, Pain in left shoulder M25.512 [facility] [id number] [place] [address] 15793- 3564 Jun, [facility] [id number] [place] [address] 96849- 1312 Jun, [facility] [id number] [place] [address] 24331- 0399 Jun, Diabetes type 2, uncontrolled E11.65 ; Fibromyalgia M79.7 and Arthritis M19.90 [facility] [id number] [place] [address] 73967- 2862 Jun, Pain in left shoulder M25.512 [facility] [id number] [place] [address] 37797- 7424 May, [facility] [id number] [place] [address] 64879- 9339 May, Diabetes type 2, controlled E11.9 [facility] [id number] [address]- 5955 May, [facility] [id number] [place] [address] 38736- 4862 May, Uncontrolled type 2 diabetes mellitus without complication, without long-term current use of insulin E11.65 [facility] [address], [place] [address]- 5274 May, Pain in left shoulder M25.512 [facility] [address] [place] [address] 95837- 9940 May, Diabetes type 2, controlled E11.9 and Uncontrolled type 2 diabetes mellitus without complication, without long-term current use of insulin E11.65 [facility] [address], [place] [address]- 2700 Apr, [facility] [address] [address]- 3306 Apr, [facility] [id number] [place] [address] 05262- 1778 Mar, [facility] [id number] [place] [address] 24272- 7204 Mar, [facility] [id number] [place] [address] 41540- 7391 Mar, [facility] [id number] [place] [address] 61106- 3669 Feb, [facility] [id number] [place] [address] [id number] Feb, Dental examination Z01.20 [facility] [id number] [place] [address] 80322- 0248 Jan, [facility] [id number] [place] [address] 60633- 6081 Dec, [facility] [address], [place] [address]- 0584 Dec, [facility] [address], [place] [address]- 6689 Dec, [facility] [address], [place] [address]- 1655 Dec, Diabetes type 2, controlled E11.9 [facility] [address], [place] [address]- 6784 Nov, [facility] [id number], [place] [address]- 8751 Nov, [facility] [address] [facility] [id number] [place] [address]- 2413 Nov, [facility] [address] [facility] [id number] [place] [address]- 6224 Nov, [facility] [address] [facility] [id number] [place] [address]- 3741 Oct, [facility] [address] [facility] [id number] [place] [address]- 2249 Oct, [facility] [address] [facility] [id number] [place] [address]- 3733 Oct, [facility] [address] [facility] [id number] [place] [address]- 8315 Sep, [facility] [address] [facility] [id number] [place] [address]- 3480 Sep, Diabetes type 2, controlled E11.9 [facility] [address], [place] [address]- 6463 Sep, Diabetes type 2, controlled E11.9 [facility] [id number] [place] [address]- 9614 August, [facility] [id number] [place] [address]- 4494 August, [facility] [id number], [place] [address]- 9431 August, Type 2 diabetes mellitus without complication E11.9 and Pain in left shoulder M25.512 [facility] [address] [facility] [id number] [place] [address]- 5667 Jul, [facility] [address] [facility] [id number] [address]- 2303 Jul, Diabetes type 2, controlled E11.9 and Hypertension, benign I10 [facility] [id number] [place] [address]- 3677 Jun, [facility] [id number], [place] [address]- 8469 Jun, [facility] [id number] [place] [address] 04452- 1839 Jun, Diabetes 250.00 [facility] [id number] [place] [address] 74432- 4489 Jun, [facility] [id number] [place] [address] 41438- 0256 May, Diabetes type 2, uncontrolled E11.65 [facility] [id number] [place] [address] 13151- 2893 May, [facility] [id number] [place] [address] 48977- 6054 Apr, Type 2 diabetes mellitus without complication E11.9 [facility] [id number] [place] [address] 29931- 2383 Apr, Encounter for immunization Z23 [facility] [id number] [place] [address] 46283- 5726 Apr, [facility] [id number] [place] [address] 44682- 9801 Mar, [facility] [address], [place] [address]- 9939 Mar, [facility] [id number] [place] [address] 99288- 8895 Mar, [facility] [id number] [place] [address] 33567- 8269 Feb, [facility] [id number] [place] [address] 10119- 1333 Jan, [facility] [id number] [place] [address] 43104- 9285 Jan, [facility] [id number] [place] [address] 95433- 1497 Jan, [facility] [id number], [place] [address]- 0089 Dec, Diabetes 250.00 and COPD (chronic obstructive pulmonary disease) 496 [facility] [id number] 6872 24 Dec, 2014 [facility] [address], [place] [address]- 0425 Dec, [facility] [address], [place] [address]- 2864 Nov, [facility] [address], [place] [address]- 9186 Oct, Diabetes 250.00 [facility] [id number] [address]- 5364 Sep, [facility] [address], [place] [address]- 8206 Sep, [facility] [address], [place] [address]- 6940 Sep, [facility] [id number], [place] [address]- 1376 Sep, Diabetes 250.00 [facility] [address], [place] [address]- 2567 Sep, [facility] [address], [place] [address]- 0740 Sep, [facility] [address], [place] [address]- 9626 August, Hypertension, essential, benign 401.1 ; Coronary atherosclerosis of unga coronary artery 414.01 and Diabetic neuropathy associated with type 2 diabetes mellitus 250.60 [facility] [address], [place] [address]- 2935 Jul, [facility] [id number], [place] [address]- 1819 Jul, [facility] [place] [facility] [address] [id number] [place] [address]- 7585 Jul, [facility] [place] [facility] [address] [id number] [place] [address]- 0408 Jun, [facility] [place] [facility] [address] [id number] [place] [address]- 3754 Jun, [facility] [place] [facility] [address] [id number] [place] [address]- 5470 Jun, [facility] [place] [facility] [address] [id number] [place] [address]- 5560 Jun, [facility] [place] [facility] [address] [id number] [place] [address]- 6001 Jun, [facility] [place] [facility] [address] [id number] [place] [address]- 4121 May, [facility] [place] [facility] [address] [id number] [place] [address]- 8722 May, [facility] [place] [facility] [address] [id number] [place] [address]- 4221 May, [facility] [place] [facility] [address] [facility] [id number] [place] [address]- 4092 May, [facility] [place] [facility] [address] [facility] [id number] [place] [address]- 9927 May, [facility] [place] [facility] [address] [id number] [place] [address]- 4096 May, [facility] [place] [facility] [address] [id number] [place] [address]- 2572 May, [facility] [place] [facility] [address] [id number] [place] [address]- 8236 Apr, [facility] [place] [facility] [address] [id number] [place] [address]- 0028 Apr, [facility] [place] [facility] [address] [id number], [place] [address]- 1853 Apr, [facility] [place] [facility] [address] [id number] [place] [address]- 2016 Apr, [facility] [place] [facility] [address] [id number] [place] 9493 Mar, [facility] [place] [facility] [address] [id number] [place] 2110 Mar, [facility] [place] [facility] [address] [id number] [place] 4420 Mar, [facility] [place] [facility] [address] [id number] [place] 2559 Mar, [facility] [place] [facility] [address] [id number] [place] [address]- 7073 Feb, [facility] [place] [facility] [address] [id number] [place] [address]- 7304 Feb, [facility] [place] [facility] [address] [id number] [place] [address]- 6177 Feb, [facility] [place] [facility] [address] [id number] [place] [address]- 0057 Feb, [facility] [place] [facility] [address] [id number] [place] [address]- 6184 Feb, [facility] [place] [facility] [address] [id number] [place] [address]- 8658 Feb, [facility] [place] [facility] [address] [id number], [place] [address]- 6981 Feb, [facility] [place] [facility] [address] [id number], [place] [address]- 4812 Jan, [facility] [place] [facility] [address] [id number], [place] [address]- 0126 Jan, [facility] [place] [facility] [address] [id number], [place] [address]- 0591 Dec, [facility] [place] [facility] [address] [id number] [place] [address]- 8693 23 Dec, 2013 [facility] [place] [facility] [address] [id number] [place] [address]- 7496 10 Dec, 2013 [facility] [place] [facility] [address] [id number] [place] [address]- 2546 10 Dec, 2013 [facility] [place] [facility] [address] [id number] [place] [address]- 9246 04 Dec, 2013 [facility] [place] [facility] [address] [id number] [place] [address]- 7384 04 Dec, 2013 [facility] [place] [facility] [address] [id number] [place] [address]- 2239 Dec, 2013 [facility] [place] [facility] [address] [id number] [place] [address]- 5179 Dec, 2013 [facility] [place] [facility] [address] [id number] [place] [address]- 4532 Nov, [facility] [place] [facility] [address] [id number] [place] [address]- 0134 Nov, [facility] [place] [facility] [address] [id number] [place] [address]- 1133 Nov, [facility] [place] [facility] [address] [id number] [place] [address]- 7791 Nov, [facility] [place] [facility] [address] [id number] [place] [address]- 5477 Oct, [facility] [place] [facility] [address] [id number] [place] [address]- 0762 Oct, [facility] [place] [facility] [address] [id number] [place] [address] Oct, [facility] [place] [facility] [address] [id number] [place] [address] Oct, [facility] [place] [facility] [address] [id number] [place] [address] Oct, [facility] [place] [facility] [address] [id number] [place] [address] Oct, [facility] [place] [facility] [address] [id number] [place] [address] Oct, [facility] [place] [facility] [address] [id number] [place] [address] Oct, [facility] [place] [facility] [address] [id number] [place] [address] Sep, [facility] [place] [facility] [address] [id number] [place] [address] Sep, [facility] [place] [facility] [address] [id number] [place] [address] August, [facility] [place] [facility] [address] [id number] [place] [address] August, [facility] [place] [facility] [address] [id number] [place] [address] Jul, [facility] [place] [facility] [address] [id number] [place] [address] Jul, [facility] [place] [facility] [address] [id number] [place] [address] Jul, [facility] [place] [facility] [address] [id number] [place] [address] Jul, [facility] [place] [facility] [address] [id number] [place] [address] Jul, [facility] [place] [facility] [address] [id number] [place] [address] Jul, [facility] [place] [facility] [address] [id number] [place] [address] Jul, [facility] [place] [facility] [address] [id number] [place] [address] Jul, [facility] [place] [facility] [address] [id number] [place] [address] 24 Jun, 2013 [facility] [address] [id number] [place] [address] Jun, [facility] [place] [facility] [address] [id number] [place] [address] Jun, [facility] [place] [facility] [address] [id number] [place] [address] Jun, [facility] [place] [facility] [address] [id number] [place] [address] 18 May, 2013 [facility] [place] [facility] [address] [id number] [place] [address] May, [facility] [place] [facility] [address] [id number] [place] [address] Apr, [facility] [place] [facility] [address] [id number] [place] [address] Apr, [facility] [address] [id number] [place] [address] Mar, [facility] [place] [facility] [address] [id number] [place] [address] Mar, [facility] [place] [facility] [address] [facility] [id number] [place] [address] Mar, [facility] [place] [facility] [address] [id number] [place] [address] Mar, [facility] [place] [facility] [address] [id number] [place] [address] Mar, [facility] [place] [facility] [address] [id number] [place] [address] Mar, [facility] [place] [facility] [address] [id number] [place] [address] Feb, [facility] [place] [facility] [address] [id number] [place] [address] Feb, [facility] [place] [facility] [address] [id number] [place] [address] Feb, [facility] [place] [facility] [address] [id number] [place] [address] Feb, [facility] [place] [facility] [address] [id number] [place] [address] Feb, [facility] [place] [facility] [address] [id number] [place] [address] Feb, [facility] [place] [facility] [address] [id number] [place] [address] Feb, [facility] [place] [facility] [address] [id number] [place] [address] Feb, [facility] [place] [facility] [address] [id number] [place] [address] 15 Jan, 2013 [facility] [place] [facility] [address] [id number], [place] [address] 15 Jan, 2013 [facility] [place] [facility] [address] [id number] [place] [address] 14 Jan, 2013 [facility] [place] [facility] [address] [id number], [place] [address] 14 Jan, 2013 [facility] [place] [facility] [address] [id number], [place] [address] 18 Dec, 2012 [facility] [place] [facility] [address] [id number], [place] [address] 13 Dec, 2012 [facility] [place] [facility] [address] [id number], [place] [address] 2012 [facility] [place] [facility] [address] [id number], [place] [address] 23 Nov, 2012 [facility] [place] [facility] [address] [id number], [place] [address] Nov, [facility] [place] [facility] [address] [id number], [place] [address] Oct, [facility] [address] [id number] [place] [address] Oct, [facility] [place] [facility] [address] [id number] [place] [address] Oct, [facility] [address] [id number] [place] [address] Sep, [facility] [place] [facility] [address] [id number] [place] [address] Sep, [facility] [address] [id number] [place] [address] Sep, [facility] [address] [id number] [place] [address] Sep, [facility] [address] [id number] [place] [address] Sep, [facility] [address] [id number] [place] [address] Sep, [facility] [address] [id number] [place] [address] August, [facility] [address] [id number] [place] [address] August, [facility] [address] [id number] [place] [address] August, [facility] [place] [facility] [address] [id number] [place] [address] 58[address] August, [facility] [place] [facility] [address] [id number] [place] [address] August, [facility] [place] [facility] [address] [id number] [place] [address] August, [facility] [place] [facility] [address] [id number] [place] [address] August, [facility] [place] [facility] [address] [id number] [place] [address] Jul, [facility] [address] [id number] [place] [address] 76[address] Jul, [facility] [place] [facility] [address] [id number] [place] [address] 47[address] Jun, [facility] [place] [facility] [address] [id number] [place] [address] 87[address] Jun, [facility] [place] [facility] [address] [id number] [place] [address] May, [facility] [place] [facility] [address] [id number] [place] [address] May, [facility] [place] [facility] [address] [id number] [place] [address] 84[address] Apr, [facility] [address] [id number] [place] [address] Mar, [facility] [address] [id number] [place] [address] Mar, [facility] [place] [facility] [address] [id number] [place] [address]77 Mar, [facility] [place] [facility] [address] [id number] [place] [address] 79[address] Mar, [facility] [place] [facility] [address] [id number] [place] [address] 25[address] Mar, [facility] [place] [facility] [address] [id number] [place] [address] 2547 Mar, [facility] [place] [facility] [address] [id number] [place] [address] Feb, [facility] [place] [facility] [address] [id number] [place] [address] Feb, [facility] [place] [facility] [address] [id number] [place] [address] 89[address] Feb, [facility] [place] [facility] [address] [id number] [place] [address] Feb, [facility] [place] [facility] [address] [id number] [place] [address] 5[address] Feb, [facility] [place] [facility] [address] [facility] [id number] [place] [address] Feb, [facility] [place] [facility] [address] [id number] [place] [address] 9[address] Feb, [facility] [place] [facility] [address] [id number] [place] [address] Feb, [facility] [place] [facility] [address] [id number] [place] [address]- 47[address] Jan, [facility] [place] [facility] [address] [facility] [id number] [place] [address] Jan, [facility] [place] [facility] [address] [id number], [place] [address] Dec, [facility] [place] [facility] [address] [id number] [place] [address] 28[address] Dec, [facility] [place] [facility] [address] [facility] [id number] [place] [address]- 4[address] Dec, [facility] [place] [facility] [address] [id number], [place] [address] Dec, [facility] [place] [facility] [address] [id number], [place] [address] Dec, [facility] [place] [facility] [address] [id number] [place] [address] 6[address] Nov, [facility] [place] [facility] [address] [facility] [id number], [place] [address] Oct, [facility] [place] [facility] [address] [facility] [id number], [place] [address] 2540 Oct, [facility] [place] [facility] [address] [id number] [place] [address]- [address] 29 Sep, 2011 [facility] [place] [facility] [address] [id number] [place] [address]- 4383 Sep, [facility] [place] [facility] [address] [id number] [place] [address]- 1585 Sep, [facility] [place] [facility] [address] [id number] [place] [address]- 5266 Sep, [facility] [place] [facility] [address] [id number] [place] [address]- 2498 Sep, [facility] [place] [facility] [address] [id number] [place] [address]- 8135 Sep, [facility] [place] [facility] [address] [id number] [place] [address]- 8954 Sep, [facility] [place] [facility] [address] [id number] [place] [address]- 0739 Sep, [facility] [place] [facility] [address] [id number] [place] [address]- 8962 August, [facility] [place] [facility] [address] [id number] [place] [address]- 0242 August, [facility] [place] [facility] [address] [id number] [place] [address]- 4305 August, [facility] [place] [facility] [address] [id number] [place] [address]- 1345 Jul, [facility] [place] [facility] [address] [id number] [place] [address]- 9758 Jul, [facility] [place] [facility] [address] [id number] [place] [address]- 4480 Jun, [facility] [place] [facility] [address] [id number] [place] [address] Jun, [facility] [place] [facility] [address] [id number] [place] [address]- 8519 Jun, [facility] [place] [facility] [address] [id number] [place] [address]- 2492 Jun, [facility] [place] [facility] [address] [id number] [place] [address]- 3331 May, [facility] [place] [facility] [address] [id number] [place] [address]- 8561 May, [facility] [place] [facility] [address] [id number] [place] [address]- 3537 Apr, [facility] [place] [facility] [address] [id number] [place] [address]- 8305 Apr, [facility] [place] [facility] [address] [id number] [place] [address]- 3267 Apr, [facility] [place] [facility] [address] [id number] [place] [address]- 1670 Mar, [facility] [place] [facility] [address] [id number], [place] [address] 9066 Mar, [facility] [place] [facility] [address] [id number] [place] [address]- 5675 Mar, [facility] [place] [facility] [address] [facility] [id number], [place] [address]- 268[address] Feb, [facility] [place] [facility] [address] [facility] [id number], [place] [address]- 8[address] Feb, [facility] [place] [facility] [address] [id number], [place] [address]- 7350 Feb, [facility] [place] [facility] [address] [id number], [place] [address]- 68[address] Feb, [facility] [place] [facility] [address] [id number], [place] [address]- 4836 Jan, [facility] [place] [facility] [address] [id number], [place] [address]- 6[address] 14 Jan, 2011 [facility] [place] [facility] [address] [id number], [place] [address]- [address]2 Jan, [facility] [id number], [place] [address] 16 Dec, 2010 [facility] [id number] [place] [address]26 Oct, [facility] [id number] [place] [address]- 5896 Mar, [facility] [id number] [place] [address]- 4079 Feb, [facility] [id number] [place] [address]- 2191 Feb, [facility] [id number] [place] [address]- 8336 May, [facility] [id number] [place] [address]- 9064 Apr, [facility] [id number], [place] [address] 9520 Mar, [facility] [id number] [place] [address]- 0425 Jan, [facility] [id number], [place] [address] 9671 Oct, [facility] [id number], [place] [address] 7860 Jul, [facility] [id number], [place] [address]- 2432 Mar, [facility] [address] [place] [address]- 4358 Feb, [facility] [id number], [place] [address] 30 Jan, 2008 IMMUNIZATIONS No Known Immunizations SOCIAL HISTORY Never Assessed REASON FOR VISIT Controlled Med Refill PLAN OF CARE VITAL SIGNS MEDICATIONS Medication Instructions Dosage Frequency Start Date End Date Duration Status MS Contin 15 mg Orally every 12 hrs 1 tablet 12h 11 Mar, 2017 28 days Active RESULTS No Results PROCEDURES [...]
--- OUTSIDE RECORDS SUMMARY | 2017-10-01 19:31 | XMS REPORT ---
Author Author KATHYA FISCHER [facility] Address [address] [place] [address] Care Team Providers Care Matzo Forming Machine Operator Name Role Phone KATHYA FISCHER Unavailable PROBLEMS Type Condition ICD9-CM Code [id number] Code Onset Dates Condition Status SNOMED Code Problem Obstructive sleep apnea G47.33 Active 19709522 Problem Diabetes type 2, uncontrolled E11.65 Active 825351225 Problem Diabetes 250.00 Active 06511742 Problem Polyneuropathy G62.9 Active 79804117 Problem Fibromyalgia M79.7 Active 059711205 Problem Diabetes type 2, controlled E11.9 Active 99975443 Problem Hypertension, benign I10 Active 68727382 Problem Arthritis M19.90 Active 7526603 Problem Uncontrolled type 2 diabetes mellitus without complication, without long-term current use of insulin E11.65 Active 543125210 ALLERGIES Unknown Allergies SOCIAL HISTORY No smoking Hx information available PLAN OF CARE VITAL SIGNS MEDICATIONS Unknown Medications RESULTS No Results PROCEDURES No Known procedures IMMUNIZATIONS No Known Immunizations
--- OUTSIDE RECORDS SUMMARY | 2017-10-01 19:31 | XMS REPORT ---
Author KATHYA Samuel Organization [employer] Address Unknown Phone Unavailable Care Team Providers Care Radiation Officer Name Role Phone KATHYA FISCHER CP Unavailable [...] Instructions Start Date End Date Status Dosage Silvadene [facility] [address]-74 1 % Externally Once a day Dec 10, 2015 1 application to affected area Results No Known Results Summary Purpose [employer] Submission
--- OUTSIDE RECORDS SUMMARY | 2017-10-01 19:31 | XMS REPORT ---
Author Author KATHYA FISCHER [facility] Address [address] [place] [address] Care Team Providers Care Commercial Cleaner Name Role Phone KATHYA FISCHER Unavailable PROBLEMS Type Condition ICD9-CM Code HGR08-VG Code Onset Dates Condition Status SNOMED Code Problem Diabetes 250.00 Active 08549841 Problem Hypertension, benign I10 Active 22280043 Problem Diabetes type 2, uncontrolled E11.65 Active 611458045 Problem Obstructive sleep apnea G47.33 Active 26126311 Problem 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 Active 88226748 Problem Polyneuropathy G62.9 Active 57388314 Problem Uncontrolled type 2 diabetes mellitus without complication, without long-term current use of insulin E11.65 Active 842865468 Problem Diabetes type 2, controlled E11.9 Active 58148678 Problem Fibromyalgia M79.7 Active 333370757 Problem Arthritis M19.90 Active 8586553 ALLERGIES No Information SOCIAL HISTORY Never Assessed PLAN OF CARE VITAL SIGNS MEDICATIONS Unknown [...]
--- OUTSIDE RECORDS SUMMARY | 2017-10-01 19:31 | XMS REPORT ---
Author Author KATHYA FISCHER Organization [employer] Address Unknown Phone Unavailable Care Team Providers Care Diving Coach Name Role Phone KATHYA FISCHER CP Unavailable [...] Date End Date Status Dosage Tramadol HCl [facility] [address]-48 50 MG Orally every 8 hrs prn TWO TABLETS Lyrica [facility] [address]-00 200 MG Orally Three times a day 1 capsule Results No Known Results Summary Purpose [employer] Submission
--- OUTSIDE RECORDS SUMMARY | 2017-10-01 19:31 | XMS REPORT ---
Author Author KATHYA FISCHER [facility] Address [address] [place] [address] Care Team Providers Care Housekeeper Child Care Name Role Phone KATHYA FISCHER Unavailable PROBLEMS Type Condition ICD9-CM Code RLL51-IL Code Onset Dates Condition Status SNOMED Code Problem Diabetes 250.00 Active 99017294 Problem Hypertension, benign I10 Active 79248678 Problem Diabetes type 2, uncontrolled E11.65 Active 022607287 Problem Obstructive sleep apnea G47.33 Active 02940811 Problem 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 Active 96648816 Problem Polyneuropathy G62.9 Active 20130139 Problem Uncontrolled type 2 diabetes mellitus without complication, without long-term current use of insulin E11.65 Active 018402721 Problem Diabetes type 2, controlled E11.9 Active 78089483 Problem Fibromyalgia M79.7 Active 308007335 Problem Arthritis M19.90 Active 6098487 ALLERGIES No Information SOCIAL HISTORY Never Assessed [...]
--- OUTSIDE RECORDS SUMMARY | 2017-10-01 19:31 | XMS REPORT ---
Author Author DAVID LONDON [facility] Address Unknown Care Team Providers Care Mend Worker Name Role Phone DAVID LONDON Unavailable PROBLEMS Type Condition ICD9-CM Code [id number] Code Onset Dates Condition Status SNOMED Code Problem Obstructive sleep apnea G47.33 Active 40379301 Problem Diabetes type 2, uncontrolled E11.65 Active 717384159 Problem Diabetes 250.00 Active 23352422 Problem Polyneuropathy G62.9 Active 25748724 Problem Fibromyalgia M79.7 Active 796846486 Problem Diabetes type 2, controlled E11.9 Active 14377942 Problem Hypertension, benign I10 Active 38402891 Problem Arthritis M19.90 Active 5342803 Problem Uncontrolled type 2 diabetes mellitus without complication, without long-term current use of insulin E11.65 Active 259874431 ALLERGIES Substance Reaction Event Type Date Status Cozaar Unknown Drug Allergy Feb, Active Androgel Unknown Drug Allergy Feb, Active rhubarb Unknown Non Drug Allergy Feb, Active raspberry Unknown Non Drug Allergy Feb, Active equal Unknown Non Drug Allergy Feb, Active sweet and low Unknown Non Drug Allergy Feb, Active horseradish Unknown Non Drug Allergy Feb, Active SulfADIAZINE Unknown Drug Allergy Feb, Active chromates Unknown Non Drug Allergy Feb, Active Lasix Unknown Drug Allergy Feb, Active latex rash Non Drug Allergy Feb, Active Cyclobenzaprine Hcl Oral Tablet 10 10 Mg Tablet dc'd potential for ss Non Drug Allergy Feb, Active Zinc Unknown Drug Allergy Feb, Active SOCIAL HISTORY No smoking Hx information available PLAN OF CARE Activity Details Follow Up prn Reason:endo #3 VITAL SIGNS Height 71 in 2016-03-07 Blood pressure systolic 140 mmHg 2016-03-07 Blood pressure diastolic 86 mmHg 2016-03-07 MEDICATIONS Medication Instructions Dosage Frequency Start Date End Date Duration Status Tamsulosin HCl 0.4 MG Orally Once a day 1 capsule 30 minutes after the same meal each day 24h Active Hydrochlorothiazide 25 MG Orally Once a day 1 tablet 24h 90 Active Parafon Forte DSC 500 MG Orally 2 times a day 1 tablet 12h 30 Active Aspirin Adult Low Strength 81 MG Orally Once a day 1 tablet 24h Active GlipiZIDE 5 MG Orally Once a day 1 tablet 24h 90 Active Fish Oil 1200 MG Orally Once a day 1 capsule 24h Active Furosemide 20 MG Orally Once a day 1 tablet 24h Active Cymbalta 30 MG TAKE ONE CAPSULE BY MOUTH DAILY ALONG WITH DULOXETINE 60 MG 90 Active Atorvastatin Calcium 40 MG Orally Once a day 1 tablet 24h Active Aspirin 325 MG Orally Once a day 1 tablet 24h Active Symbicort 160-4.5 MCG/ACT Inhalation Twice a day 2 puff 12h Feb, Active Silvadene 1 % Externally Once a day 1 application to affected area 24h Nov, Active Glucometer as directed Oct, Active Vitamin D 2000 UNIT Active ProAir HFA 108 (90 Base) MCG/ACT Inhalation every 4 hrs 2 puffs as needed 4h Active Tylenol 500 MG/15ML Active Lyrica 200 MG Orally Three times a day 1 capsule 8h Active Viagra 100 MG Orally Once a day 1 tablet as needed 24h Active True Metrix Blood Glucose Test - once a day Oct, Active Vitamin B Complex Active Lancets - as directed Oct, Active Tramadol HCl 50 MG Orally every 8 hrs prn TWO TABLETS Active Duloxetine HCl 60 MG TAKE ONE CAPSULE BY MOUTH TWICE DAILY 30 Active lidocaine topical 5 %(700 mg/patch) 3 PATCH by Topical route 1 time per day apply on bilateral wrist and left ankle Jan, Active Metoprolol Tartrate 100 MG TAKE ONE TABLET BY MOUTH TWICE DAILY 90 Active Blood Glucose Test 1 1 test Jul, Active Amitriptyline HCl 100 MG TAKE ONE TABLET BY MOUTH ONCE DAILY 90 Active RESULTS No Results PROCEDURES Procedure Date Ordered Related Diagnosis Body Site LTD ORAL EVALUATION - PROBLEM FOCUS Mar 07, 2016 INTRAORL-PERIAPICAL 1 FILM 22071 Mar 07, 2016 BITEWING - SINGLE FILM Mar 07, 2016 IMMUNIZATIONS No Known Immunizations
--- OUTSIDE RECORDS SUMMARY | 2017-10-01 19:31 | XMS REPORT ---
Author Author KATHYA FISCHER Organization [employer] Address Unknown Phone Unavailable Care Team Providers Care Data Processing Systems Consultant Name Role Phone KATHYA FISCHER CP Unavailable [...] Date End Date Status Dosage Tramadol HCl [facility] [address]-31 50 MG Orally every 8 hrs prn TWO TABLETS Results No Known Results Summary Purpose [employer] Submission
--- OUTSIDE RECORDS SUMMARY | 2017-10-01 19:31 | XMS REPORT ---
Author KATHYA Samuel Organization [employer] Address Unknown Phone Unavailable Care Team Providers Care Armored Car Guard And Driver Name Role Phone KATHYA FISCHER CP Unavailable [...] Instructions Start Date End Date Status Dosage Parafon Forte DSC [facility] 35368715937 500 MG Orally 2 times a day 1 tablet Duloxetine HCl [facility] 55314549974 60 MG TAKE ONE CAPSULE BY MOUTH TWICE DAILY Results No Known Results Summary Purpose [employer] Submission
--- OUTSIDE RECORDS SUMMARY | 2017-10-01 19:31 | XMS REPORT ---
Author Author KATHYA FISCHER [facility] Address [address] [place] [address] Care Team Providers Care Margin Clerk Name Role Phone KATHYA FISCHER Unavailable PROBLEMS Type Condition ICD9-CM Code OGV21-HN Code Onset Dates Condition Status SNOMED Code Problem Diabetes 250.00 Active 21739093 Problem Hypertension, benign I10 Active 16064980 Problem Diabetes type 2, uncontrolled E11.65 Active 842508685 Problem Obstructive sleep apnea G47.33 Active 55964546 Problem 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 Active 59842618 Problem Polyneuropathy G62.9 Active 15612831 Problem Uncontrolled type 2 diabetes mellitus without complication, without long-term current use of insulin E11.65 Active 842499796 Problem Diabetes type 2, controlled E11.9 Active 19570547 Problem Fibromyalgia M79.7 Active 586104420 Problem Arthritis M19.90 Active 9407193 ALLERGIES No Information SOCIAL HISTORY Never Assessed [...]
--- OUTSIDE RECORDS SUMMARY | 2017-10-01 19:32 | XMS REPORT ---
Author Author KATHYA FISCHER Organization [facility] Address [address] [place] [address] Care Team Providers Care Clinic Lead Name Role Phone KATHYA FISCHER Unavailable PROBLEMS Type Condition ICD9-CM Code ZKP63-DP Code Onset Dates Condition Status SNOMED Code Problem Hypertension, benign I10 Active 36352439 Problem Obstructive sleep apnea G47.33 Active 70332181 Problem Controlled type 2 diabetes mellitus without complication, without long -term current use of insulin E11.9 Active 852829375 Problem 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 Active 22323046 Problem Arthritis M19.90 Active 3179895 Problem Uncontrolled type 2 diabetes mellitus without complication, without long-term current use of insulin E11.65 Active 981538757 Problem Polyneuropathy G62.9 Active 67061781 Problem Fibromyalgia M79.7 Active 637510841 ALLERGIES Substance Reaction Event Type Date Status Zinc Unknown Drug Allergy Feb, Active Lasix Unknown Drug Allergy Feb, Active Cozaar Unknown Drug Allergy Feb, Active SulfADIAZINE Unknown Drug Allergy Feb, Active Nabumetone Unknown Drug Allergy Feb, Active Androgel Unknown Drug Allergy Feb, Active Wool itching Non Drug Allergy Feb, Active rhubarb Unknown Non Drug Allergy Feb, Active raspberry Unknown Non Drug Allergy Feb, Active equal Unknown Non Drug Allergy Feb, Active sweet and low Unknown Non Drug Allergy Feb, Active horseradish Unknown Non Drug Allergy Feb, Active chromates Unknown Non Drug Allergy Feb, Active latex rash Non Drug Allergy Feb, Active Cyclobenzaprine Hcl Oral Tablet 10 10 Mg Tablet dc'd potential for ss Non Drug Allergy Feb, Active ENCOUNTERS Encounter Location Date Diagnosis [facility] [address] [facility] [id number] [address] Sep, [facility] [address] [facility] [id number] [address] August, [facility] [id number] [place] [address] 48367- 1751 August, [facility] [address] [address] August, Fibromyalgia M79.7 [facility] [id number] [place] [address] 32254- 0049 Jul, Hypertension, benign I10 [facility] [address] [address]- 7330 Jul, Fibromyalgia M79.7 [facility] [address] [address]- 9181 Jul, [facility] [address] 9[address]44- 0944 Jun, [facility] [address] [address]- 9633 Jun, Hypertension, benign I10 ; Arthritis M19.90 ; 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 and Uncontrolled type 2 diabetes mellitus without complication, without long-term current use of insulin E11.65 [facility] [id number] [place] [address]01 -1513 Jun, Acute nasopharyngitis J00 and BMI 50.0-59.9, adult Z68.43 [facility] [id number] [place] [address] 70904- 9470 Jun, Fibromyalgia M79.7 [facility] [id number] [place] [address] 06570- 3773 May, [facility] [address] [address]18- 6976 May, Fibromyalgia M79.7 [facility] [id number] [place] [address] 69492- 2370 Apr, Fibromyalgia M79.7 [facility] [address], [place] [address] 2546 Apr, [facility] [address], [place] [address] 2546 Apr, [facility] [address] [address] 2546 Apr, Arthritis M19.90 [facility] [address] [place] [address] 03170 2546 Apr, Arthritis M19.90 [facility] [address] [place] [address] 51320 2546 Apr, Arthritis M19.90 and Controlled type 2 diabetes mellitus without complication, without long-term current use of insulin E11.9 [facility] [address] [address] 2546 Apr, [facility] [address] [place] [address] 55766 2546 Apr, Fibromyalgia M79.7 [facility] [address] [address] 2546 Mar, [facility] [address] [address] 2546 Mar, [facility] [address] [address] 2546 Mar, Fibromyalgia M79.7 [facility] [address] [address] 2546 Feb, [facility] [address] [address] 2546 Feb, [facility] [address] [address] 2546 Feb, [facility] [address] [address] 2546 Feb, Fibromyalgia M79.7 [facility] [id number] [place] [address] 37854- 9587 Feb, Diabetes type 2, uncontrolled E11.65 and Encounter for immunization Z23 [facility] [id number] [place] [address] 62594- 7145 Jan, [facility] [id number] [place] [address] 97515- 2625 Jan, Fibromyalgia M79.7 [facility] [id number] [place] [address] 76514- 7780 Dec, [facility] [id number] [place] [address] 81379- 8374 Dec, Fibromyalgia M79.7 [facility] [id number] [place] [address] 68857- 1790 Nov, [facility] [id number] [place] [address] 34027- 9053 Nov, [facility] [id number] [place] [address] 08970- 5258 Nov, 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 and Polyneuropathy G62.9 [facility] [id number] [place] [address] 82444- 7242 Nov, [facility] [id number] [place] [address] 97202- 2326 Nov, [facility] [id number] [place] [address] 06507- 9355 Oct, Diabetes type 2, uncontrolled E11.65 [facility] [id number] [place] [address] 27622- 7316 Oct, Diabetes type 2, uncontrolled E11.65 ; Polyneuropathy G62.9 and Pain in right wrist M25.531 [facility] [address] [place] [address] 21833- 8922 Oct, [facility] [id number] [place] [address] 09762- 2198 Oct, Pain in left shoulder M25.512 [facility] [id number] [place] [address] 58916- 0476 Sep, [facility] [id number] [place] [address] 479473- 9006 Sep, Pain in left shoulder M25.512 [facility] [id number] [place] [address] 514333- 2586 Sep, [facility] [id number] [place] [address] 11713- 6355 August, Pain in left shoulder M25.512 [facility] [id number] [place] [address] 36195- 6406 Jul, [facility] [id number] [place] [address] 70785- 3356 Jul, [facility] [id number] [place] [address] 31981- 1711 Jul, Pain in left shoulder M25.512 [facility] [address] [place] [address] 43504- 7714 Jun, [facility] [id number] [place] [address] 31760- 4686 Jun, [facility] [id number] [place] [address] 53372- 3332 Jun, Diabetes type 2, uncontrolled E11.65 ; Fibromyalgia M79.7 and Arthritis M19.90 [facility] [address] [place] [address]- 2484 Jun, Pain in left shoulder M25.512 [facility] [id number] [place] [address] 32056- 3596 May, [facility] [address] [address]- 9356 May, Diabetes type 2, controlled E11.9 [facility] [address] 4976 17 May, 2016 [facility] [address] 1145 May, Uncontrolled type 2 diabetes mellitus without complication, without long-term current use of insulin E11.65 [facility] [address] [address]- 6268 15 May, 2016 Pain in left shoulder M25.512 [facility] [address] [address]- 0760 03 May, 2016 Diabetes type 2, controlled E11.9 and Uncontrolled type 2 diabetes mellitus without complication, without long-term current use of insulin E11.65 [facility] [address] [address]- 4961 Apr, [facility] [id number] [place] [address] 89405- 4927 Apr, [facility] [address], [place] [address]- 1424 Mar, [facility] [address] [address]- 5135 Mar, [facility] [address] [address]- 8831 Mar, [facility] [address] [address]16 Feb, [facility] [address] [address] Feb, Dental examination Z01.20 [facility] [address] [address]- 0116 17 Jan, 2016 [facility] [address] [address]- 8436 14 Dec, 2015 [facility] [address] [address]- 8356 Dec, [facility] [address] [id number] [place] [address]- 0780 Dec, [facility] [address] [id number] [place] [address]- 0271 Dec, Diabetes type 2, controlled E11.9 [facility] [address] [id number] [place] [address]- 1199 Nov, [facility] [address] [id number] [place] [address]- 2110 Nov, [facility] [address] [id number] [place] [address]- 6442 Nov, [facility] [address] [id number] [place] [address]- 9438 Nov, [facility] [address] [facility] [id number] [place] [address]- 1566 Oct, [facility] [address] [id number] [place] [address]- 4931 Oct, [facility] [address] [facility] [id number] [place] [address]- 2474 Oct, [facility] [address] [facility] [id number] [place] [address]- 1679 Sep, [facility] [address] [facility] [id number] [place] [address]- 3754 Sep, Diabetes type 2, controlled E11.9 [facility] [address] [id number] [place] [address]- 8286 Sep, Diabetes type 2, controlled E11.9 [facility] [address] [id number] [place] [address]- 9904 August, [facility] [address] [facility] [id number] [place] [address]- 4734 August, [facility] [address] [facility] [id number] [address]- 0630 August, Type 2 diabetes mellitus without complication E11.9 and Pain in left shoulder M25.512 [facility] [id number] [place] [address] 16480- 3237 Jul, [facility] [id number] [place] [address] 62673- 8263 Jul, Diabetes type 2, controlled E11.9 and Hypertension, benign I10 [facility] [address] 65644- 2836 Jun, [facility] [id number] [place] [address] 12200- 3087 Jun, [facility] [id number] [place] [address] 04320- 3196 Jun, Diabetes 250.00 [facility] [address] 63976- 6219 Jun, [facility] [address] 60790- 1044 May, Diabetes type 2, uncontrolled E11.65 [facility] [id number] [place] [address] 27799- 1108 May, [facility] [id number] [place] [address] 78679- 0302 Apr, Type 2 diabetes mellitus without complication E11.9 [facility] [id number] [place] [address] 51968- 0305 Apr, Encounter for immunization Z23 [facility] [id number] [place] [address] 56150- 8825 Apr, [facility] [address] 70534- 5240 Mar, [facility] [id number] [place] [address] 40519- 4831 Mar, [facility] [address] [place] [address]- 3902 Mar, [facility] [id number] [address]- 2349 Feb, [facility] [address]- 5850 Jan, [facility] [address] [address]- 6240 Jan, [facility] [address], [place] [address]- 0917 Jan, [facility] [address] [place] [address] 62056- 2717 Dec, Diabetes 250.00 and COPD (chronic obstructive pulmonary disease) 496 [facility] [address] [address]- 8749 Dec, [facility] [address] [address]- 3788 Dec, [facility] [address], [place] [address]- 4976 Nov, [facility] [address] [address]- 0021 Oct, Diabetes 250.00 [facility] [address] [address]- 2890 Sep, [facility] [address] [address]- 9867 Sep, [facility] [id number] [address]- 2328 Sep, [facility] [address] [address]- 1726 Sep, Diabetes 250.00 [facility] [id number] [address]- 8311 Sep, [facility] [address] [id number] [address]- 1316 Sep, [facility] [address]- 5479 August, Hypertension, essential, benign 401.1 ; Coronary atherosclerosis of [place] coronary artery 414.01 and Diabetic neuropathy associated with type 2 diabetes mellitus 250.60 [facility] [address] [address]- 0593 Jul, [facility] [address] [facility] [id number] [address]- 6615 Jul, [facility] [address] [place] [address] 52462- 7014 Jul, [facility] [id number] [address]- 4202 Jun, [facility] [address] [address]- 8943 Jun, [facility] [address] [address]- 1339 Jun, [facility] [address], [place] [address]- 4156 Jun, [facility] [address] [address]- 4944 Jun, [facility] [address], [place] [address]- 3915 May, [facility] [address], [place] [address]- 1062 May, [facility] [address], [place] [address]- 2191 May, [facility] [address], [place] [address]- 9446 May, [facility] [address], [place] [address]- 5406 May, [facility] [place] [facility] [address] [id number] [place] [address]- 7869 May, [facility] [place] [facility] [address] [id number] [place] [address]- 3816 May, [facility] [place] [facility] [address] [id number] [place] [address]- 0040 Apr, [facility] [place] [facility] [address] [id number] [place] [address]- 9452 Apr, [facility] [place] [facility] [address] [id number] [place] [address]- 6552 Apr, [facility] [place] [facility] [address] [id number] [place] [address]- 7936 Apr, [facility] [place] [facility] [address] [id number] [place] [address]- 6426 Mar, [facility] [place] [facility] [address] [id number] [place] [address]- 0839 Mar, [facility] [place] [facility] [address] [id number] [place] [address]- 1368 Mar, [facility] [place] [facility] [address] [id number] [place] [address]- 7696 Mar, [facility] [place] [facility] [address] [id number] [address]- 2559 Feb, [facility] [place] [facility] [address] [id number] [address]- 9258 Feb, [facility] [place] [facility] [address] [id number] [place] [address]- 9579 Feb, [facility] [place] [facility] [address] [id number] [place] [address]- 3809 Feb, [facility] [place] [facility] [address] [id number] [place] [address]- 9016 Feb, [facility] [place] [facility] [address] [id number] [place] [address]- 9498 05 Feb, 2014 [facility] [place] [facility] [address] [id number] [place] [address]- 3606 Feb, [facility] [place] [facility] [address] [id number] [place] [address]- 8421 Jan, [facility] [place] [facility] [address] [id number] [place] [address]- 0404 Jan, [facility] [place] [facility] [address] [id number] [place] [address]- 7577 Dec, [facility] [place] [facility] [address] [id number] [place] [address]- 2339 23 Dec, 2013 [facility] [place] [facility] [address] [id number] [place] [address]- 2717 Dec, [facility] [place] [facility] [address] [id number] [place] [address]- 9387 Dec, 2013 [facility] [place] [facility] [address] [id number] [place] [address]- 5183 Dec, 2013 [facility] [place] [facility] [address] [id number] [place] [address]- 6389 04 Dec, 2013 [facility] [place] [facility] [address] [id number] [place] [address]- 9682 Dec, [facility] [place] [facility] [address] [id number] [place] [address]- 6360 Dec, 2013 [facility] [place] [facility] [address] [id number] [place] [address]- 6383 Nov, [facility] [place] [facility] [address] [id number] [place] [address]- 3864 Nov, [facility] [place] [facility] [address] [id number] [place] [address]- 3819 Nov, [facility] [place] [facility] [address] [id number] [place] [address]- 8435 Nov, [facility] [place] [facility] [address] [id number] [place] [address]- 4099 Oct, 2013 [facility] [place] [facility] [address] [id number] [place] [address]- 6085 Oct, 2013 [facility] [place] [facility] [address] [id number] [place] [address]- 2213 Oct, 2013 [facility] [place] [facility] [address] [id number] [place] [address]- 3508 Oct, 2013 [facility] [place] [facility] [address] [id number] [place] [address]- 7287 Oct, 2013 [facility] [place] [facility] [address] [id number] [place] [address]- 3047 Oct, [facility] [place] [facility] [address] [id number] [place] [address]- 7690 Oct, 2013 [facility] [place] [facility] [address] [id number] [place] [address]- 2394 Oct, [facility] [place] [facility] [address] [id number] [place] [address]- 0205 Sep, [facility] [place] [facility] [address] [id number] [place] [address]- 0534 Sep, [facility] [place] [facility] [address] [id number] [place] [address]- 9050 August, [facility] [place] [facility] [address] [id number] [place] [address]- 0945 August, [facility] [place] [facility] [address] [id number] [place] [address]- 0562 Jul, [facility] [place] [facility] [address] [id number] [place] [address]- 3049 Jul, [facility] [place] [facility] [address] [id number] [place] [address]- 6284 Jul, [facility] [place] [facility] [address] [id number] [place] [address]- 8592 Jul, [facility] [place] [facility] [address] [id number] [place] [address]- 4554 Jul, [facility] [place] [facility] [address] [id number] [place] [address]- 0617 Jul, [facility] [place] [facility] [address] [id number] [place] [address]- 2417 Jul, [facility] [place] [facility] [address] [id number] [place] [address]- 7300 Jul, [facility] [place] [facility] [address] [id number] [place] [address]- 5944 Jun, [facility] [place] [facility] [address] [id number] [place] [address]- 2807 Jun, [facility] [place] [facility] [address] [id number] [place] [address]- 2117 Jun, [facility] [place] [facility] [address] [id number] [place] [address] Jun, [facility] [place] [facility] [address] [id number] [place] [address] May, [facility] [place] [facility] [address] [id number] [place] [address] May, [facility] [place] [facility] [address] [id number] [place] [address] Apr, [facility] [place] [facility] [address] [id number] [place] [address] Apr, [facility] [place] [facility] [address] [id number] [place] [address] Mar, [facility] [place] [facility] [address] [id number] [place] [address] Mar, [facility] [place] [facility] [address] [id number] [place] [address] Mar, [facility] [place] [facility] [address] [id number] [place] [address] 18 Mar, 2013 [facility] [address] [id number] [place] [address] 18 Mar, 2013 [facility] [place] [facility] [address] [id number] [place] [address] 18 Mar, 2013 [facility] [address] [id number] [place] [address] Feb, [facility] [place] [facility] [address] [id number] [place] [address] Feb, [facility] [address] [id number] [place] [address] Feb, [facility] [place] [facility] [address] [id number] [place] [address] Feb, [facility] [place] [facility] [address] [id number] [place] [address] Feb, [facility] [address] [id number] [place] [address] 18 Feb, 2013 [facility] [place] [facility] [address] [id number] [place] [address] Feb, [facility] [address] [id number] [place] [address] 12 Feb, 2013 [facility] [place] [facility] [address] [id number] [place] [address] 15 Jan, 2013 [facility] [place] [facility] [address] [id number] [address] 15 Jan, 2013 [facility] [place] [facility] [address] [id number] [place] [address] 14 Jan, 2013 [facility] [place] [facility] [address] [id number] [place] [address] 14 Jan, 2013 [facility] [place] [facility] [address] [id number] [place] [address] Dec, [facility] [place] [facility] [address] [id number] [place] [address] Dec, [facility] [place] [facility] [address] [id number] [place] [address] Dec, [facility] [place] [facility] [address] [id number] [place] [address] Nov, [facility] [place] [facility] [address] [id number] [place] [address] Nov, [facility] [place] [facility] [address] [id number] [place] Oct, [facility] [place] [facility] [address] [id number] [place] [address] Oct, [facility] [place] [facility] [address] [id number] [place] [address] Oct, [facility] [place] [facility] [address] [id number] [place] [address] Sep, [facility] [place] [facility] [address] [id number] [place] [address] Sep, [facility] [place] [facility] [address] [id number] [place] [address] Sep, [facility] [place] [facility] [address] [id number] [place] [address] Sep, [facility] [place] [facility] [address] [id number][place] [address] Sep, [facility] [place] [facility] [address] [id number] [place] [address] Sep, [facility] [place] [facility] [address] [id number] [place] [address] August, [facility] [place] [facility] [address] [id number] [place] [address] August, [facility] [place] [facility] [address] [id number][place] [address] August, [facility] [address] [id number] [place] [address] August, [facility] [address] [id number] [place] [address] August, [facility] [address] [id number] [place] [address] 110[address] August, [facility] [address] [id number] [place] [address] August, [facility] [address] [id number] [place] [address] Jul, [facility] [address] [id number] [place] [address] Jul, [facility] [address] [id number] [place] [address] Jun, [facility] [address] [id number] [place] [address] Jun, [facility] [address] [id number] [place] [address] May, [facility] [address] [facility] [id number] [place] [address] May, [facility] [address] [id number] [place] [address] 38[address] Apr, [facility] [address] [id number] [place] [address] Mar, [facility] [address] [id number] [place] [address] Mar, [facility] [address] [facility] [id number] [place] [address] Mar, [facility] [id number] [address] Mar, [facility] [place] [facility] [address] [id number] [place] [address] Mar, [facility] [place] [facility] [address] [id number] [place] [address] Mar, [facility] [place] [facility] [address] [id number] [place] [address] Feb, [facility] [place] [facility] [address] [id number] [place] [address] 17[address] Feb, [facility] [place] [facility] [address] [id number] [place] [address] Feb, [facility] [place] [facility] [address] [id number] [place] [address] Feb, [facility] [place] [facility] [address] [id number] [place] [address] 8678 Feb, [facility] [place] [facility] [address] [id number] [place] [address] 6783 Feb, [facility] [place] [facility] [address] [id number] [place] [address]77 Feb, [facility] [place] [facility] [address] [id number] [place] [address] Feb, [facility] [place] [facility] [address] [id number] [place] [address] 47[address] Jan, [facility] [place] [facility] [address] [id number] [place] [address] Jan, [facility] [place] [facility] [address] [id number] [place] [address] 28 Dec, 2011 [facility] [place] [facility] [address] [id number] [place] [address] 19 Dec, 2011 [facility] [place] [facility] [address] [id number] [place] [address] 18 Dec, 2011 [facility] [place] [facility] [address] [id number] [place] [address] 59[address] Dec, [facility] [place] [facility] [address] [id number] [place] [address] 3847 Dec, [facility] [place] [facility] [address] [id number] [place] [address] Nov, [facility] [place] [facility] [address] [id number] [place] [address] 96[address] Oct, [facility] [place] [facility] [address] [id number] [place] [address] Oct, [facility] [place] [facility] [address] [id number] [place] [address] Sep, [facility] [place] [facility] [address] [id number] [place] [address] Sep, [facility] [place] [facility] [address] [id number] [place] [address] 299[address] Sep, [facility] [place] [facility] [address] [id number] [place] [address]- 7184 Sep, [facility] [place] [facility] [address] [id number] [place] [address] 4428 Sep, [facility] [place] [facility] [address] [id number] [place] [address] Sep, [facility] [place] [facility] [address] [id number] [place] [address] 8292 Sep, [facility] [place] [facility] [address] [id number] [place] [address] 1329 Sep, [facility] [place] [facility] [address] [id number] [place] [address] August, [facility] [place] [facility] [address] [id number] [place] [address] 4[address] August, [facility] [place] [facility] [address] [id number] [place] [address] 67[address] August, [facility] [place] [facility] [address] [id number] [place] [address] 3[address] Jul, [facility] [address] [id number] [place] [address] 2[address] Jul, [facility] [address] [id number] [place] [address] 9256 Jun, [facility] [address] [id number] [place] [address]- 3566 Jun, [facility] [address] [id number] [place] [address] 2546 Jun, [facility] [address] [id number] [place] [address]- 0486 Jun, [facility] [address] [id number] [place] [address] 6[address] May, [facility] [address] [id number] [place] [address]- 1548 May, [facility] [address] [id number] [place] [address]- 4415 Apr, [facility] [address] [id number] [place] [address]- 8127 Apr, [facility] [address] [id number] [place] [address]- 9075 Apr, [facility] [address] [id number] [place] [address]- 2884 Mar, [facility] [address] [id number] [place] [address]- 9536 Mar, [facility] [address] [id number] [place] [address]- 5876 Mar, [facility] [address] [id number] [place] [address]- 2546 Feb, [facility] [address] [id number] [place] [address]- 5683 Feb, [facility] [place] [facility] [address] [id number] [place] [address]- 1286 Feb, [facility] [place] [facility] [address] [id number] [place] [address]- 9138 Feb, [facility] [place] [facility] [address] [id number] [place] [address]- 1171 Jan, [facility] [place] [facility] [address] [id number] [place] [address]- 3323 14 Jan, 2011 [facility] [place] [facility] [address] [id number] [place] [address]- 8334 Jan, [facility] [place] [facility] [address] [id number] [place] [address]- 8563 16 Dec, 2010 [facility] [place] [facility] [address] [id number] [place] [address]- 8971 Oct, [facility] [place] [facility] [address] [id number] [place] [address]- 6904 Mar, [facility] [place] [facility] [address] [id number] [place] [address]- 3429 Feb, [facility] [place] [facility] [address] [id number][place] [address] 5[address] Feb, [facility] [place] [facility] [address] [id number][place] [address]- 9645 May, [facility] [place] [facility] [address] [id number][place] [address]- 8473 Apr, [facility] [place] [facility] [address] [id number] [place] [address]- 5347 Mar, [facility] [place] [facility] [address] [id number] [place] [address]- 3555 30 Jan, 2009 [facility] [place] [facility] [address] [id number][place] [address]- 8026 15 Oct, 2008 [facility] [place] [facility] [address] [id number][place] [address]- [address] Jul, [facility] [address] [facility] [id number][place] [address]058 Mar, [facility] [address] [facility] [id number][place] [address] 36[address] Feb, [facility] [address] [facility] [id number][place] [address] Jan, IMMUNIZATIONS Vaccine Route Administration Date Status FLUARIX QUAD (3 AND UP) 2016 IM Intramuscular Feb 20, 2017 Administered SOCIAL HISTORY Never Assessed REASON FOR VISIT diabetes , Flu vaccine, f/u from med changes. CBrumbackRN PLAN OF CARE Activity Details Follow Up 3 Months Reason:dm 3 mo. checkup VITAL SIGNS Height 71 in 2017-02-20 Weight 382.2 lbs 2017-02-20 Temperature 98.1 degrees Fahrenheit 2017-02-20 Heart Rate 76 bpm 2017-02-20 Respiratory Rate 22 2017-02-20 BMI 53.30 kg/m2 2017-02-20 Blood pressure systolic 104 mmHg 2017-02-20 Blood pressure diastolic 66 mmHg 2017-02-20 MEDICATIONS Medication Instructions Dosage Frequency Start Date End Date Duration Status Blood Glucose Test 1 1 test Jul, Active Hydrochlorothiazide 25 MG Orally Once a day 1 tablet 24h 90 Active Fish Oil 1200 MG Orally Once a day 4 capsule 24h Active Tylenol Extra Strength 500 mg Orally 3 times a day 2 tablets 8h Active Aspirin 325 MG Orally Once a day 1 tablet 24h Active Metoprolol Tartrate 100 MG TAKE ONE TABLET BY MOUTH TWICE DAILY 90 Active Lancets - as directed Oct, Active Vitamin D 2000 UNIT Active potassium 1 tab Active Cyclobenzaprine HCl 10 MG Orally Three times a day 1 tablet 8h Active Glucometer as directed Oct, Active Symbicort 160-4.5 MCG/ACT Inhalation Twice a day 2 puff 12h Feb, Active True Metrix Blood Glucose Test - once a day Active Bydureon 2 MG Subcutaneous once weekly Inject 28 Active Amitriptyline HCl 100 MG TAKE ONE TABLET BY MOUTH ONCE DAILY 30 Active Silvadene 1 % Externally Once a day 1 application to affected area 24h Nov, Active ProAir HFA 108 (90 Base) MCG/ACT Inhalation every 4 hrs 2 puffs as needed 4h Active Lyrica 200 MG Orally Three times a day 1 capsule 8h 28 days Active MS Contin 15 mg Orally every 12 hrs 1 tablet 12h 17 Jan, 2017 28 days Active Cymbalta 30 MG TAKE ONE CAPSULE BY MOUTH DAILY ALONG WITH DULOXETINE 60 MG 30 Active Furosemide 20 mg Orally Once a day 2 tablet in the AM and 1 tablet in PM 24h Active lidocaine topical 5 %(700 mg/patch) 3 PATCH by Topical route 1 time per day apply on bilateral wrist and left ankle 14 Jan, 2013 Active Atorvastatin Calcium 40 MG Orally Once a day 1 tablet 24h Active Duloxetine HCl 60 MG TAKE ONE CAPSULE BY MOUTH TWICE DAILY 30 Active GlipiZIDE 5 mg Orally 2 times a day 2 tablets 12h Active Tamsulosin HCl 0.4 MG Orally Once a day 1 capsule 30 minutes after the same meal each day 24h Active Viagra 100 MG Orally Once a day 1 tablet as needed 24h Active Vitamin B Complex Active RESULTS Name Result Date Reference Range A1C (IN HOUSE) 2017-02-20 A1C IN HOUSE 10.0 4.3 - 5.6 % Previous A1c 8.4 Lot [id number] Exp date 10/2018 PROCEDURES Procedure Date Ordered Result Body Site GLYCATED HEMOGLOBIN TEST Feb 20, 2017 SINGLE IMMUNIZATION ADMIN Feb 20, 2017 FLUARIX QUAD (3 AND UP) 2016Feb 20, 2017 INSTRUCTIONS MEDICATIONS ADMINISTERED No Known Medications MEDICAL (GENERAL) HISTORY Type Description Date Medical History Other and unspecified hyperlipidemia Medical History Unspecified hypertensive heart disease without heart failure Medical History Unspecified venous (peripheral) insufficiency Medical History Edema Medical History depression Medical History vitamin D deficiency Medical History type II diabetes Medical History sleep apnea with CPAP Medical History fibromyalgia Medical History obesity [facility] Surgical History tonsillectomy Hospitalization History surgeries
--- OUTSIDE RECORDS SUMMARY | 2017-10-01 19:32 | XMS REPORT ---
Author KATHYA [facility] eClinicalWorks Address Unknown Phone Unavailable Care Team Providers Care Cooker Syrup Name Role Phone KATHYA FISCHER CP Unavailable [...] Problem Unspecified venous (peripheral) insufficiency 459.81 Active Assessment Hypertension, benign I10 Active Assessment Diabetes type 2, controlled E11.9 Active Problem Hypertension, benign I10 Active Problem Diabetes type 2, uncontrolled E11.65 Active Problem Diabetes type 2, controlled E11.9 Active Problem Pain in joint, lower leg 719.46 Active Problem Other and unspecified hyperlipidemia 272.4 Active Problem Diabetes 250.00 Active Problem Obstructive sleep apnea G47.33 Active Medications Medication Code System Code Instructions Start Date End Date Status Dosage GlipiZIDE [facility] [address]-11 5 MG Orally Once a day Jun 13, 2015 1 tablet Hydrochlorothiazide [facility] [address]-40 25 MG Orally Once a day August 10, 2015 1 tablet Tamsulosin HCl [facility] [address]-45 0.4 MG Orally Once a day 1 capsule 30 minutes after the same meal each day Fish Oil [facility] 90[address] 1200 MG Orally Once a day 1 capsule Aspirin [facility] [address]-17 325 MG Orally Once a day 1 tablet Metoprolol Tartrate [facility] 00508814278 100 MG TAKE ONE TABLET BY MOUTH TWICE DAILY Aspirin Adult Low Strength [facility] [address]-47 81 MG Orally Once a day 1 tablet Symbicort [facility] [address]-62 160-4.5 MCG/ACT Inhalation Twice a day Feb 19, 2015 2 puff Lyrica [facility] [address]-89 200 MG Orally Three times a day 1 capsule Furosemide [facility] [address]-13 20 MG Orally Once a day 1 tablet Duloxetine HCl [facility] 44485552013 60 MG TAKE ONE CAPSULE BY MOUTH TWICE DAILY Amitriptyline HCl [facility] 53402899917 100 MG TAKE ONE TABLET BY MOUTH ONCE DAILY ProAir HFA [facility] [address]-05 108 (90 Base) MCG/ACT Inhalation every 4 hrs 2 puffs as needed lidocaine topical [facility] 0 5 %(700 mg/patch) Jan 31, 2013 3 PATCH by Topical route 1 time per day apply on bilateral wrist and left ankle Blood Glucose Test ND 0 1 In Vitro Once a day, strips with lancets August 10, 2015 1 test Atorvastatin Calcium [facility] [address]-54 40 MG Orally Once a day 1 tablet Tramadol HCl [facility] [address]-54 50 MG Orally every 8 hrs prn TWO TABLETS Cymbalta [facility] 44806585778 30 MG TAKE ONE CAPSULE BY MOUTH DAILY ALONG WITH DULOXETINE 60 MG Vitamin B Complex [facility] [address] Orally not defined Tylenol [facility] [address]-89 500 MG/15ML Orally not defined Vitamin D [facility] [address]-39 2000 UNIT Orally not defined Procedures Procedure Coding System Code Date Office Visit, Est Pt., Level 3 CPT-4 75653 August 10, 2015 Vital Signs Date/Time: August 10, 2015 Temperature 98.0 F Weight 381 lbs Height 71 in BMI 53.13 Index Blood Pressure Diastolic 84 mmHg Blood Pressure Systolic 148 mmHg Cardiac Monitoring Heart Rate 80 bpm Results No Known Results Summary Purpose eClinicalWorks Submission
--- OUTSIDE RECORDS SUMMARY | 2017-10-01 19:32 | XMS REPORT ---
Author Author KATHYA FISCHER Organization [facility] Address [address] [place] [address] Care Team Providers Care Etcher Machine Name Role Phone AMADO KATHYA Unavailable PROBLEMS Type Condition ICD9-CM Code ZAL82-LX Code Onset Dates Condition Status SNOMED Code Problem Diabetes 250.00 Active 90154941 Problem Hypertension, benign I10 Active 25199481 Problem Diabetes type 2, uncontrolled E11.65 Active 821302145 Problem Obstructive sleep apnea G47.33 Active 17506667 Problem 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 Active 94579686 Problem Polyneuropathy G62.9 Active 59356989 Problem Uncontrolled type 2 diabetes mellitus without complication, without long-term current use of insulin E11.65 Active 234229134 Problem Diabetes type 2, controlled E11.9 Active 97695206 Problem Fibromyalgia M79.7 Active 711420854 Problem Arthritis M19.90 Active 7489610 ALLERGIES No Information SOCIAL HISTORY Never Assessed [...]
--- OUTSIDE RECORDS SUMMARY | 2017-10-01 19:33 | XMS REPORT ---
Author Author KATHYA FISCHER Organization [facility] Address [address] [place] [address] Care Team Providers Care Program Development Specialist Name Role Phone KATHYA FISCHER Unavailable PROBLEMS Type Condition ICD9-CM Code UYZ67-GE Code Onset Dates Condition Status SNOMED Code Problem Hypertension, benign I10 Active 01148718 Problem Obstructive sleep apnea G47.33 Active 64762116 Problem Controlled type 2 diabetes mellitus without complication, without long -term current use of insulin E11.9 Active 780003963 Problem 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 Active 45284274 Problem Arthritis M19.90 Active 8372829 Problem Uncontrolled type 2 diabetes mellitus without complication, without long-term current use of insulin E11.65 Active 599763193 Problem Polyneuropathy G62.9 Active 71201432 Problem Fibromyalgia M79.7 Active [id number] ALLERGIES No Information ENCOUNTERS Encounter Location Date Diagnosis [facility] [id number] [place] [address] 32890- 3210 Sep, [facility] [address] [address]- 3151 August, [facility] [id number] [place] [address] 10888- 3394 August, [facility] [address] 91844- 4562 August, [facility] [id number] [place] [address] 95720- 9617 August, Fibromyalgia M79.7 [facility] [address] 90738- 9567 Jul, Hypertension, benign I10 [facility] [id number] [place] [address] 42969- 5228 Jul, Fibromyalgia M79.7 [facility] [id number] [place] [address] 99953- 1880 Jul, [facility] [id number] [place] [address] 13667- 8100 Jun, [facility] [id number] [place] [address] 05301- 3955 Jun, Hypertension, benign I10 ; Arthritis M19.90 ; alf current use 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 Z79.891 and Uncontrolled type 2 diabetes mellitus without complication, without long-term current use of insulin E11.65 [facility] [id number] [place] [address] 15625 -6536 Jun, Acute nasopharyngitis J00 and BMI 50.0-59.9, adult Z68.43 [facility] [id number] [place] [address] 26417- 6035 Jun, Fibromyalgia M79.7 [facility] [id number] [place] [address] 39628- 3476 May, [facility] [id number] [place] [address] 62637- 5266 May, Fibromyalgia M79.7 [facility] [id number] [place] [address] 44613- 5752 Apr, Fibromyalgia M79.7 [facility] [id number] [place] [address] 68626- 3215 Apr, [facility] [id number] [place] [address] 19820- 6627 Apr, [facility] [id number] [place] [address] 43224- 0754 Apr, Arthritis M19.90 [facility] [id number] [place] [address] 11955- 5941 Apr, Arthritis M19.90 [facility] [address] 80303- 4541 Apr, Arthritis M19.90 and Controlled type 2 diabetes mellitus without complication, without long-term current use of insulin E11.9 [facility] [id number] [place] [address] 20101- 8582 Apr, [facility] [id number] [place] [address] 67649- 0286 Apr, Fibromyalgia M79.7 [facility] [id number] [place] [address] 51853- 9446 Mar, [facility] [id number] [place] [address] 67638- 4901 Mar, [facility] [id number] [place] [address] 84536- 1943 Mar, Fibromyalgia M79.7 [facility] [id number] [place] [address] 59096- 3952 Feb, [facility] [id number] [place] [address] 11618- 6760 Feb, [facility] [id number] [place] [address] 36496- 0438 Feb, [facility] [id number] [place] [address] 49581- 6161 Feb, Fibromyalgia M79.7 [facility] [id number] [place] [address] 29576- 3584 Feb, Diabetes type 2, uncontrolled E11.65 and Encounter for immunization Z23 [facility] [id number] [place] [address] 06601- 7686 Jan, [facility] [id number] [place] [address] 87905- 0393 Jan, Fibromyalgia M79.7 [facility] [id number] [place] [address] 97582- 1312 Dec, [facility] [address] [place] [address]- 5485 Dec, Fibromyalgia M79.7 [facility] [id number] [place] [address] 06484- 6772 Nov, [facility] [id number] [place] [address] 26399- 2739 Nov, [facility] [id number] [place] [address] 97186- 9093 Nov, 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 and Polyneuropathy G62.9 [facility] [id number] [place] [address] 29131- 9730 Nov, [facility] [id number] [place] [address] 60261- 5792 Nov, [facility] [id number] [place] [address] 15841- 0827 Oct, Diabetes type 2, uncontrolled E11.65 [facility] [id number] [place] [address] 45497- 2179 Oct, Diabetes type 2, uncontrolled E11.65 ; Polyneuropathy G62.9 and Pain in right wrist M25.531 [facility] [id number] [place] [address] 08890- 4025 Oct, [facility] [id number] [place] [address] 06751- 2950 Oct, Pain in left shoulder M25.512 [facility] [id number] [place] [address] 73498- 5680 Sep, [facility] [id number] [place] [address] 80474- 0552 Sep, Pain in left shoulder M25.512 [facility] [id number] [place] [address] 50347- 6097 Sep, [facility] [id number] [place] [address] 63169- 7927 August, Pain in left shoulder M25.512 [facility] [address] [address]- 5013 Jul, [facility] [address] [place] [address] 79578- 4239 Jul, [facility] [id number] [place] [address] 48486- 3047 Jul, Pain in left shoulder M25.512 [facility] [id number] [place] [address] 00339- 8825 Jun, [facility] [id number] [place] [address] 06527- 6147 Jun, [facility] [id number] [place] [address] 86372- 1657 Jun, Diabetes type 2, uncontrolled E11.65 ; Fibromyalgia M79.7 and Arthritis M19.90 [facility] [id number] [place] [address] 21526- 3053 Jun, Pain in left shoulder M25.512 [facility] [id number] [place] [address] 58636- 2654 May, [facility] [id number] [place] [address] 84680- 3316 May, Diabetes type 2, controlled E11.9 [facility] [id number] [address]- 9982 May, [facility] [address] [place] [address] 18229- 2390 May, Uncontrolled type 2 diabetes mellitus without complication, without long-term current use of insulin E11.65 [facility] [address] [address]- 7258 May, Pain in left shoulder M25.512 [facility] [address] [place] [address] 74046- 2797 May, Diabetes type 2, controlled E11.9 and Uncontrolled type 2 diabetes mellitus without complication, without long-term current use of insulin E11.65 [facility] [address] [address]- 9963 Apr, [facility] [address] [address]- 8512 Apr, [facility] [id number] [place] [address] 17431- 8851 Mar, [facility] [id number] [place] [address] 89396- 5366 Mar, [facility] [id number] [place] [address] 44172- 2430 Mar, [facility] [id number] [place] [address] 59839- 7682 Feb, [facility] [id number] [place] [address] [id number] Feb, Dental examination Z01.20 [facility] [id number] [place] [address] 51269- 0240 Jan, [facility] [id number] [place] [address] 62236- 7772 Dec, [facility] [address] [address]- 8994 Dec, [facility] [address] [address]- 6473 Dec, [facility] [address] [address]- 1471 Dec, Diabetes type 2, controlled E11.9 [facility] [address] [address]- 4925 Nov, [facility] [address], [place] [address]- 7009 Nov, [facility] [address] [facility] [id number] [place] [address]- 2892 Nov, [facility] [address] [facility] [id number] [place] [address]- 4930 Nov, [facility] [address] [facility] [id number] [place] [address]- 2886 Oct, [facility] [address] [facility] [id number] [place] [address]- 3104 Oct, [facility] [address] [facility] [id number] [place] [address]- 2205 Oct, [facility] [address] [facility] [id number] [place] [address]- 5588 Sep, [facility] [address] [facility] [id number] [place] [address]- 7714 Sep, Diabetes type 2, controlled E11.9 [facility] [address] [address]- 0928 Sep, Diabetes type 2, controlled E11.9 [facility] [address] [place] [address]- 2266 August, [facility] [address] [place] [address]- 5444 August, [facility] [address] [address]- 7221 August, Type 2 diabetes mellitus without complication E11.9 and Pain in left shoulder M25.512 [facility] [address] [facility] [id number] [place] [address]- 6794 Jul, [facility] [address] [facility] [id number] [address]- 3396 Jul, Diabetes type 2, controlled E11.9 and Hypertension, benign I10 [facility] [id number] [place] [address]- 8163 Jun, [facility] [address] [address]- 9967 Jun, [facility] [id number] [place] [address] 66870- 5911 Jun, Diabetes 250.00 [facility] [id number] [place] [address] 14822- 7442 Jun, [facility] [id number] [place] [address] 11171- 1616 May, Diabetes type 2, uncontrolled E11.65 [facility] [id number] [place] [address] 83543- 8702 May, [facility] [id number] [place] [address] 16876- 9910 Apr, Type 2 diabetes mellitus without complication E11.9 [facility] [id number] [place] [address] 59649- 7696 Apr, Encounter for immunization Z23 [facility] [id number] [place] [address] 26782- 1944 Apr, [facility] [id number] [place] [address] 18141- 8327 Mar, [facility] [address] [address]- 1998 Mar, [facility] [id number] [place] [address] 83673- 6809 Mar, [facility] [id number] [place] [address] 89445- 0244 Feb, [facility] [id number] [place] [address] 57491- 6309 Jan, [facility] [id number] [place] [address] 78508- 3449 Jan, [facility] [address] [place] [address] 53769- 5234 Jan, [facility] [address] [address]- 7711 Dec, Diabetes 250.00 and COPD (chronic obstructive pulmonary disease) 496 [facility] [address] [address] 5213 24 Dec, 2014 [facility] [address] [address]- 7606 Dec, [facility] [address] [address]- 1671 Nov, [facility] [address] [address]- 2325 Oct, Diabetes 250.00 [facility] [id number] [address]- 2512 Sep, [facility] [address] [address]- 7138 Sep, [facility] [address] [address]- 8885 Sep, [facility] [address] [address]- 6213 Sep, Diabetes 250.00 [facility] [address] [address]- 2279 Sep, [facility] [address], [place] [address]- 6471 Sep, [facility] [address], [place] [address]- 5166 August, Hypertension, essential, benign 401.1 ; Coronary atherosclerosis of [place] coronary artery 414.01 and Diabetic neuropathy associated with type 2 diabetes mellitus 250.60 [facility] [address], [place] [address]- 7028 Jul, [facility] [address], [place] [address]- 8452 Jul, [facility] [place] [facility] [address] [id number] [place] [address]- 9188 Jul, [facility] [place] [facility] [address] [id number] [place] [address]- 7440 Jun, [facility] [place] [facility] [address] [id number] [place] [address]- 2759 Jun, [facility] [place] [facility] [address] [id number] [place] [address]- 7313 Jun, [facility] [place] [facility] [address] [id number] [place] [address]- 0513 Jun, [facility] [place] [facility] [address] [id number] [place] [address]- 6653 Jun, [facility] [place] [facility] [address] [id number] [place] [address]- 1125 May, [facility] [place] [facility] [address] [id number] [place] [address]- 1395 May, [facility] [place] [facility] [address] [id number] [place] [address]- 8248 May, [facility] [place] [facility] [address] [facility] [id number] [place] [address]- 8380 May, [facility] [place] [facility] [address] [facility] [id number] [place] [address]- 5113 May, [facility] [place] [facility] [address] [id number] [place] [address]- 4403 May, [facility] [place] [facility] [address] [id number] [place] [address]- 0011 May, [facility] [place] [facility] [address] [id number] [place] [address]- 1106 Apr, [facility] [place] [facility] [address] [id number] [place] [address]- 9180 Apr, [facility] [place] [facility] [address] [id number] [address]- 3446 Apr, [facility] [place] [facility] [address] [id number] [place] [address]- 0589 Apr, [facility] [place] [facility] [address] [id number] [place] 8634 Mar, [facility] [place] [facility] [address] [id number] [place] 9424 Mar, [facility] [place] [facility] [address] [id number] [place] 6138 Mar, [facility] [place] [facility] [address] [id number] [place] 3852 Mar, [facility] [place] [facility] [address] [id number] [place] [address]- 5417 Feb, [facility] [place] [facility] [address] [id number] [place] [address]- 8496 Feb, [facility] [place] [facility] [address] [id number] [place] [address]- 9896 Feb, [facility] [place] [facility] [address] [id number] [place] [address]- 8398 Feb, [facility] [place] [facility] [address] [id number] [place] [address]- 2418 Feb, [facility] [place] [facility] [address] [id number] [place] [address]- 7755 Feb, [facility] [place] [facility] [address] [id number] [address]- 6709 Feb, [facility] [place] [facility] [address] [id number], [place] [address]- 2435 Jan, [facility] [place] [facility] [address] [id number], [place] [address]- 9596 Jan, [facility] [place] [facility] [address] [id number], [place] [address]- 1669 Dec, [facility] [place] [facility] [address] [id number] [place] [address]- 4576 23 Dec, 2013 [facility] [place] [facility] [address] [id number] [place] [address]- 0556 10 Dec, 2013 [facility] [place] [facility] [address] [id number] [place] [address]- 2546 10 Dec, 2013 [facility] [place] [facility] [address] [id number] [place] [address]- 7456 04 Dec, 2013 [facility] [place] [facility] [address] [id number] [place] [address]- 4350 04 Dec, 2013 [facility] [place] [facility] [address] [id number] [place] [address]- 5552 Dec, 2013 [facility] [place] [facility] [address] [id number] [place] [address]- 0002 Dec, 2013 [facility] [place] [facility] [address] [id number] [place] [address]- 2108 Nov, [facility] [place] [facility] [address] [id number] [place] [address] Nov, [facility] [place] [facility] [address] [id number] [place] [address] Nov, [facility] [place] [facility] [address] [id number] [place] [address] Nov, [facility] [place] [facility] [address] [id number] [place] [address] Oct, [facility] [place] [facility] [address] [id number] [place] [address] Oct, [facility] [place] [facility] [address] [id number] [place] [address] Oct, [facility] [place] [facility] [address] [id number] [place] [address] Oct, [facility] [place] [facility] [address] [id number] [place] [address] Oct, [facility] [place] [facility] [address] [id number] [place] [address] Oct, [facility] [place] [facility] [address] [id number] [place] [address] Oct, [facility] [place] [facility] [address] [id number] [place] [address] Oct, [facility] [place] [facility] [address] [id number] [place] [address] Sep, [facility] [place] [facility] [address] [id number] [place] [address] Sep, [facility] [place] [facility] [address] [id number] [place] [address] August, [facility] [place] [facility] [address] [id number] [place] [address] August, [facility] [place] [facility] [address] [id number] [place] [address] Jul, [facility] [place] [facility] [address] [id number] [place] [address]- [address] Jul, [facility] [place] [facility] [address] [id number] [place] [address]- [address] Jul, [facility] [place] [facility] [address] [id number] [place] [address]- [address] Jul, [facility] [place] [facility] [address] [id number] [place] [address]- [address] Jul, [facility] [place] [facility] [address] [id number] [place] [address]- [address] Jul, [facility] [place] [facility] [address] [id number] [place] [address]- [address] Jul, [facility] [place] [facility] [address] [id number] [place] [address]- [address] Jul, [facility] [place] [facility] [address] [id number] [place] [address] 24 Jun, 2013 [facility] [address] [id number] [place] [address] Jun, [facility] [place] [facility] [address] [id number] [place] [address]- [address] Jun, [facility] [place] [facility] [address] [id number] [place] [address]- [address] Jun, [facility] [place] [facility] [address] [id number] [place] [address]- [address] 18 May, 2013 [facility] [place] [facility] [address] [id number] [place] [address]- [address] May, [facility] [place] [facility] [address] [id number] [place] [address] Apr, [facility] [place] [facility] [address] [id number] [place] [address]- [address] Apr, [facility] [address] [id number] [place] [address]- [address] Mar, [facility] [place] [facility] [address] [id number] [place] [address]- [address] Mar, [facility] [place] [facility] [address] [facility] [id number] [place] [address]- [address] Mar, [facility] [place] [facility] [address] [id number] [place] [address] Mar, [facility] [place] [facility] [address] [id number] [place] [address]- [address]693 Mar, [facility] [place] [facility] [address] [id number] [place] [address] Mar, [facility] [place] [facility] [address] [id number] [place] [address]- [address]702 Feb, [facility] [place] [facility] [address] [id number] [place] [address] Feb, [facility] [place] [facility] [address] [id number] [place] [address]- [address]85 Feb, [facility] [place] [facility] [address] [id number] [place] [address]- [address] Feb, [facility] [place] [facility] [address] [id number] [place] [address]- [address] Feb, [facility] [place] [facility] [address] [id number] [place] [address]- [address] Feb, [facility] [place] [facility] [address] [id number] [place] [address]- [address]69 Feb, [facility] [place] [facility] [address] [id number] [place] [address]- [address] Feb, [facility] [place] [facility] [address] [id number] [place] [address]- [address] 15 Jan, 2013 [facility] [place] [facility] [address] [address] [id number][place] [address] 15 Jan, 2013 [facility] [place] [facility] [address] [id number] [place] [address] 14 Jan, 2013 [facility] [place] [facility] [address] [id number], [place] [address] 14 Jan, 2013 [facility] [place] [facility] [address] [id number][place] [address] 18 Dec, 2012 [facility] [place] [facility] [address] [id number][place] [address] 13 Dec, 2012 [facility] [place] [facility] [address] [id number], [place] [address] 2012 [facility] [place] [facility] [address] [id number][place] [address] 23 Nov, 2012 [facility] [place] [facility] [address] [id number][place] [address] Nov, [facility] [place] [facility] [address] [id number], [place] [address] Oct, [facility] [address] [id number] [place] [address] Oct, [facility] [place] [facility] [address] [id number] [place] [address] Oct, [facility] [address] [id number] [place] [address] 4067 Sep, [facility] [place] [facility] [address] [id number] [place] [address] Sep, [facility] [address] [id number] [place] [address] 95[address] Sep, [facility] [address] [id number] [place] [address]607 Sep, [facility] [address] [id number] [place] [address]- [address] Sep, [facility] [address] [id number] [place] [address] 0436 Sep, [facility] [address] [id number] [place] [address]- 74[address] August, [facility] [address] [id number] [place] [address] August, [facility] [address] [id number] [place] [address] 4[address] August, [facility] [place] [facility] [address] [id number] [place] [address] 0058 August, [facility] [place] [facility] [address] [id number] [place] [address] 3743 August, [facility] [place] [facility] [address] [id number] [place] [address] August, [facility] [place] [facility] [address] [id number] [place] [address] August, [facility] [place] [facility] [address] [id number] [place] [address] 9638 Jul, [facility] [address] [id number] [place] [address]- 64[address] Jul, [facility] [place] [facility] [address] [id number] [place] [address]- 1566 Jun, [facility] [place] [facility] [address] [id number] [place] [address] 7032 Jun, [facility] [place] [facility] [address] [id number] [place] [address] 1839 May, [facility] [place] [facility] [address] [id number] [place] [address] May, [facility] [place] [facility] [address] [id number] [place] [address] Apr, [facility] [address] [id number] [place] [address] 96[address] Mar, [facility] [address] [id number] [place] [address] 117[address] Mar, [facility] [place] [facility] [address] [id number] [place] [address] 1534 Mar, [facility] [place] [facility] [address] [id number] [place] [address] 0[address] Mar, [facility] [place] [facility] [address] [id number] [place] [address] 2546 Mar, [facility] [place] [facility] [address] [id number] [place] [address] 2544 Mar, [facility] [place] [facility] [address] [id number] [place] [address] 18[address] Feb, [facility] [place] [facility] [address] [id number] [place] [address] 7854 Feb, [facility] [place] [facility] [address] [id number] [place] [address] 0238 Feb, [facility] [place] [facility] [address] [id number] [place] [address] Feb, [facility] [place] [facility] [address] [id number] [place] [address]- 9258 Feb, [facility] [place] [facility] [address] [facility] [id number] [place] [address] 0416 Feb, [facility] [place] [facility] [address] [id number] [place] [address] 2920 Feb, [facility] [place] [facility] [address] [id number] [place] [address]- 9702 Feb, [facility] [place] [facility] [address] [id number] [place] [address]- 49[address] Jan, [facility] [place] [facility] [address] [facility] [id number] [place] [address]- 5159 Jan, [facility] [place] [facility] [address] [id number], [place] [address] Dec, [facility] [place] [facility] [address] [id number] [place] [address]- 5434 Dec, [facility] [place] [facility] [address] [facility] [id number] [place] [address] Dec, [facility] [place] [facility] [address] [id number][place] [address] Dec, [facility] [place] [facility] [address] [id number], [place] [address] 407[address] Dec, [facility] [place] [facility] [address] [id number] [place] [address] 4120 Nov, [facility] [place] [facility] [address] [facility] [id number], [place] [address] 1883 Oct, [facility] [place] [facility] [address] [facility] [id number], [place] [address] 2547 Oct, [facility] [place] [facility] [address] [id number] [place] [address] 7474 29 Sep, 2011 [facility] [place] [facility] [address] [id number] [place] [address]- 2658 Sep, [facility] [place] [facility] [address] [id number] [place] [address]- 7841 Sep, [facility] [place] [facility] [address] [id number] [place] [address]- 2428 Sep, [facility] [place] [facility] [address] [id number] [place] [address]- 2168 Sep, [facility] [place] [facility] [address] [id number] [place] [address]- 4496 Sep, [facility] [place] [facility] [address] [id number] [place] [address]- 3911 Sep, [facility] [place] [facility] [address] [id number] [place] [address]- 2077 Sep, [facility] [place] [facility] [address] [id number] [place] [address]- 5775 August, [facility] [place] [facility] [address] [id number] [place] [address]- 4778 August, [facility] [place] [facility] [address] [id number] [place] [address]- 4934 August, [facility] [place] [facility] [address] [id number] [place] [address]- 8564 Jul, [facility] [place] [facility] [address] [id number] [place] [address]- 0890 Jul, [facility] [place] [facility] [address] [id number] [place] [address]- 7419 Jun, [facility] [place] [facility] [address] [id number] [place] [address] [address] Jun, [facility] [place] [facility] [address] [id number] [place] [address]- 8400 Jun, [facility] [place] [facility] [address] [id number] [place] [address]- 6172 Jun, [facility] [place] [facility] [address] [id number] [place] [address]- 7574 May, [facility] [place] [facility] [address] [id number] [place] [address]- 3714 May, [facility] [place] [facility] [address] [id number] [place] [address]- 5411 Apr, [facility] [place] [facility] [address] [id number] [place] [address]- 8898 Apr, [facility] [place] [facility] [address] [id number] [place] [address]- 7629 Apr, [facility] [place] [facility] [address] [id number] [place] [address]- 2606 Mar, [facility] [place] [facility] [address] [id number], [place] [address]- 3089 Mar, [facility] [place] [facility] [address] [id number] [place] [address]- 9282 Mar, [facility] [place] [facility] [address] [facility] [id number][place] [address]- 1567 Feb, [facility] [place] [facility] [address] [facility] [id number][place] [address]- 1231 Feb, [facility] [place] [facility] [address] [id number][place] [address]- 7851 Feb, [facility] [place] [facility] [address] [id number], [place] [address]- 4530 Feb, [facility] [place] [facility] [address] [id number], [place] [address] Jan, [facility] [place] [facility] [address] [id number], [place] [address]- 9464 14 Jan, 2011 [facility] [place] [facility] [address] [id number][place] [address]- 2686 Jan, [facility] [address]00565100[place] [address]30 Dec, [facility] [address]00565100[place], [place] [address]- 6146 Oct, [facility] [address]00565100[place], [place] [address]- 0836 Mar, [facility] [id number] [place] [address]- 1588 Feb, [facility] [id number] [place] [address]- 1033 Feb, [facility] [id number] [place] [address]- 8320 May, [facility] [id number] [place] [address]- 3196 Apr, [facility] [address]65100[place], [place] [address]- 4949 Mar, [facility] [address] [place] [address]- 0467 Jan, [facility] [address]65[address], [place] [address]- 5991 Oct, [facility] [address]65[address], [place] [address]- 6458 Jul, [facility] [address]65100[place], [place] [address]- 1513 Mar, [facility] [address]65100[place], [place] [address]- 9217 Feb, [facility] [address]65[address], [place] [address]- 0915 Jan, IMMUNIZATIONS No Known Immunizations SOCIAL HISTORY Never Assessed REASON FOR VISIT PA for [facility] PLAN OF CARE VITAL SIGNS MEDICATIONS Unknown [...] fibromyalgia Medical History obesity Medical History bao nguyen (Dr. Masters) Surgical History tonsillectomy Hospitalization History surgeries
--- OUTSIDE RECORDS SUMMARY | 2017-10-01 19:33 | XMS REPORT ---
Author KATHYA Samuel Organization [employer] Address Unknown Phone Unavailable Care Team Providers Care B2B Sales Executive Name Role Phone KATHYA FISCHER CP Unavailable [...] Date End Date Status Dosage Tramadol HCl [facility] [address]-09 50 MG Orally every 8 hrs prn TWO TABLETS Results No Known Results Summary Purpose [employer] Submission
--- OUTSIDE RECORDS SUMMARY | 2017-10-01 19:33 | XMS REPORT ---
Author KATHYA Samuel Organization [employer] Address Unknown Phone Unavailable Care Team Providers Care Heater Worker Name Role Phone KATHYA FISCHER CP [...] Start Date End Date Status Dosage Lyrica [facility] [address]-30 200 MG Orally Three times a day 1 capsule Results No Known Results Summary Purpose [employer] Submission
--- OUTSIDE RECORDS SUMMARY | 2017-10-01 19:34 | XMS REPORT ---
Author KATHYA Saumel Organization [employer] Address Unknown Phone Unavailable Care Team Providers Care Equipment Maintenance Tech Name Role Phone KATHYA FISCHER CP Unavailable [...] Date End Date Status Dosage Tramadol HCl [facility] [address]-23 50 MG Orally every 8 hrs prn TWO TABLETS Results No Known Results Summary Purpose [employer] Submission
--- OUTSIDE RECORDS SUMMARY | 2017-10-01 19:34 | XMS REPORT ---
Author KATHYA Samuel [facility] [employer] Address Unknown Phone Unavailable Care Team Providers Care Coloring Checker Name Role Phone KATHYA FISCHER CP Unavailable Allergies, Adverse Reactions, Alerts Substance Reaction Event Type SulfADIAZINE Info Not Available Drug Allergy Lasix Info Not Available Drug Allergy Zinc Info Not Available Drug Allergy Cozaar Info Not Available Drug Allergy Androgel Info Not Available Drug Allergy Cyclobenzaprine Hcl Oral Tablet 10 10 Mg Tablet dc'd potential for ss Non Drug Allergy rhubarb Info Not Available Non Drug Allergy raspberry Info Not Available Non Drug Allergy equal Info Not Available Non Drug Allergy sweet and low Info Not Available Non Drug Allergy horseradish Info Not Available Non Drug Allergy chromates Info Not Available Non Drug Allergy latex rash Non Drug Allergy Problems Problem Type Condition Code Onset Dates Condition Status Problem Edema 782.3 Active Problem Unspecified hypertensive heart disease without heart failure 402.90 Active Problem Unspecified venous (peripheral) insufficiency 459.81 Active Assessment Diabetes type 2, controlled E11.9 [...] Instructions Start Date End Date Status Dosage Blood Glucose Test NDC 0 1 Once a day, strips. Dispense per insurance. DX: E11.65 August 10, 2015 1 test Hydrochlorothiazide ND 43514599045 25 MG Orally Once a day 1 tablet Silvadene [facility] [address]-31 1 % Externally Once a day Dec 10, 2015 1 application to affected area lidocaine topical NDC 0 5 %(700 mg/patch) Jan 31, 2013 3 PATCH by Topical route 1 time per day apply on bilateral wrist and left ankle Glucometer NDC 0 TRUE METRIX E11.65 November 16, 2015 as directed Tamsulosin HCl [facility] [address]-67 0.4 MG Orally Once a day 1 capsule 30 minutes after the same meal each day Symbicort [facility] [address]-24 160-4.5 MCG/ACT Inhalation Twice a day Feb 19, 2015 2 puff Viagra [facility] [address]-22 100 MG Orally Once a day 1 tablet as needed Vitamin D [facility] [address]-29 2000 UNIT Orally not defined Lyrica [facility] [address]-28 200 MG Orally Three times a day 1 capsule Parafon Forte DSC [facility] 41589959928 500 MG Orally 2 times a day 1 tablet Duloxetine HCl [facility] 59109376251 60 MG TAKE ONE CAPSULE BY MOUTH TWICE DAILY Furosemide [facility] [address]-51 20 MG Orally Once a day 1 tablet Atorvastatin Calcium [facility] [address]-19 40 MG Orally Once a day 1 tablet Aspirin Adult Low Strength [facility] [address]-25 81 MG Orally Once a day 1 tablet GlipiZIDE [facility] 05168659120 5 MG Orally Once a day 1 tablet Aspirin [facility] [address]-67 325 MG Orally Once a day 1 tablet Tylenol [facility] [address]-59 500 MG/15ML Orally not defined Vitamin B Complex [facility] [address]12-[address]46 Orally not defined ProAir HFA [facility] [address]-78 108 (90 Base) MCG/ACT Inhalation every 4 hrs 2 puffs as needed True Metrix Blood Glucose Test [facility] [address]873 - E11.65 November 16, 2015 once a day Cymbalta [facility] 98695475851 30 MG TAKE ONE CAPSULE BY MOUTH DAILY ALONG WITH DULOXETINE 60 MG Fish Oil [facility] 69686-[address]96 1200 MG Orally Once a day 1 capsule Tramadol HCl [facility] [address]-60 50 MG Orally every 8 hrs prn TWO TABLETS Amitriptyline HCl [facility] 25384162795 100 MG TAKE ONE TABLET BY MOUTH ONCE DAILY Metoprolol Tartrate [facility] 01614395618 100 MG TAKE ONE TABLET BY MOUTH TWICE DAILY Lancets [facility] 8193-093599 - TRUE METRIX E11.65 November 16, 2015 as directed Procedures Procedure Coding System Code Date Office Visit, Est Pt., Level 3 CPT-4 30661 Dec 20, 2015 GLYCATED HEMOGLOBIN TEST CPT-4 58990 Dec 20, 2015 Vital Signs Date/Time: Dec 20, 2015 Cardiac Monitoring Heart Rate 86 bpm Weight 389.1 lbs Height 71 in BMI 54.26 Index Blood Pressure Diastolic 85 mmHg Blood Pressure Systolic 152 mmHg Results Name Result Date Reference Range Unit Abnormality Flag A1C (IN HOUSE) ----A1C IN HOUSE 8.8 20151220 4.3 - 5.6 % ----Previous A1c 7.8 [id number] ----Lot [id number] ----Exp date [id number] Summary Purpose [employer]Clinical[employer] Submission
--- OUTSIDE RECORDS SUMMARY | 2017-10-01 19:34 | XMS REPORT ---
Author Author KATHYA FISCHER [facility] Address [address] [place] [address] Care Team Providers Care Rotary Driller Name Role Phone KATHYA FISCHER Unavailable PROBLEMS Type Condition ICD9-CM Code WVI73-VO Code Onset Dates Condition Status SNOMED Code Problem Diabetes 250.00 Active 04993827 Problem Hypertension, benign I10 Active 97673224 Problem Diabetes type 2, uncontrolled E11.65 Active 001065128 Problem Obstructive sleep apnea G47.33 Active 86676172 Problem 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 Active 94139141 Problem Polyneuropathy G62.9 Active 80055728 Problem Uncontrolled type 2 diabetes mellitus without complication, without long-term current use of insulin E11.65 Active 225562176 Problem Diabetes type 2, controlled E11.9 Active 94096692 Problem Fibromyalgia M79.7 Active 617852669 Problem Arthritis M19.90 Active 5319912 ALLERGIES Unknown Allergies SOCIAL HISTORY No smoking Hx information available PLAN OF CARE VITAL SIGNS MEDICATIONS Medication Instructions Dosage Frequency Start Date End Date Duration Status Lyrica 200 mg Orally Three times a day 1 capsule 8h 28 days Active RESULTS No Results PROCEDURES No Known procedures IMMUNIZATIONS No Known Immunizations
--- OUTSIDE RECORDS SUMMARY | 2017-10-01 19:34 | XMS REPORT ---
Author Author KATHYA FISCHER [facility] Address [address] [place] [address] Care Team Providers Care Metal Weigher Name Role Phone KATHYA FISCHER Unavailable PROBLEMS Type Condition ICD9-CM Code RHA72-LP Code Onset Dates Condition Status SNOMED Code Problem Unspecified venous (peripheral) insufficiency 459.81 Active 17443799 Problem Other and unspecified hyperlipidemia 272.4 Active 09370463 Problem Unspecified hypertensive heart disease without heart failure 402.90 Active 38623812 Problem Edema 782.3 Active 36593540 Problem Diabetes type 2, controlled E11.9 Active 94688401 Problem Hypertension, benign I10 Active 48767374 Problem Obstructive sleep apnea G47.33 Active 05443139 Problem Pain in joint, lower leg 719.46 Active 849725111 Problem Diabetes type 2, uncontrolled E11.65 Active 009318512 Problem Diabetes 250.00 Active 14335443 ALLERGIES Unknown Allergies SOCIAL HISTORY No smoking Hx information available PLAN OF CARE VITAL SIGNS MEDICATIONS Unknown Medications RESULTS No Results PROCEDURES No Known procedures IMMUNIZATIONS No Known Immunizations
--- OUTSIDE RECORDS SUMMARY | 2017-10-01 19:34 | XMS REPORT ---
Author Author KATHYA FISCHER [facility] Address [address] [place] [address] Care Team Providers Care Railroad Track Repair Supervisor Name Role Phone KATHYA FISCHER Unavailable PROBLEMS Type Condition ICD9-CM Code HSM52-OC Code Onset Dates Condition Status SNOMED Code Problem Diabetes 250.00 Active 18064825 Problem Hypertension, benign I10 Active 36446176 Problem Diabetes type 2, uncontrolled E11.65 Active 600479251 Problem Obstructive sleep apnea G47.33 Active 70920333 Problem 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 Active 72147704 Problem Polyneuropathy G62.9 Active 53814163 Problem Uncontrolled type 2 diabetes mellitus without complication, without long-term current use of insulin E11.65 Active 876321378 Problem Diabetes type 2, controlled E11.9 Active 23387141 Problem Fibromyalgia M79.7 Active 894148959 Problem Arthritis M19.90 Active 0422875 ALLERGIES No Known Allergies SOCIAL HISTORY No smoking Hx information available PLAN OF CARE VITAL SIGNS MEDICATIONS Medication Instructions Dosage Frequency Start Date End Date Duration Status Lyrica 200 mg Orally Three times a day 1 capsule 8h Active RESULTS No Results PROCEDURES No Known procedures IMMUNIZATIONS No Known Immunizations
--- OUTSIDE RECORDS SUMMARY | 2017-10-01 19:34 | XMS REPORT ---
Author Author KATHYA FISCHER Organization [facility] Address [address] [place] [address] Care Team Providers Care Business Reporter Name Role Phone AMADO KATHYA Unavailable PROBLEMS Type Condition ICD9-CM Code CED90-RD Code Onset Dates Condition Status SNOMED Code Problem Diabetes 250.00 Active 93167748 Problem Hypertension, benign I10 Active 48510041 Problem Diabetes type 2, uncontrolled E11.65 Active 914232379 Problem Obstructive sleep apnea G47.33 Active 14416545 Problem 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 Active 73644475 Problem Polyneuropathy G62.9 Active 15287258 Problem Uncontrolled type 2 diabetes mellitus without complication, without long-term current use of insulin E11.65 Active 087217366 Problem Diabetes type 2, controlled E11.9 Active 82616561 Problem Fibromyalgia M79.7 Active 502454539 Problem Arthritis M19.90 Active 0205843 ALLERGIES No Information SOCIAL HISTORY Never Assessed [...]
--- OUTSIDE RECORDS SUMMARY | 2017-10-01 19:34 | XMS REPORT ---
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 Name Role Phone ÁNGEL SPIVEY Unavailable PROBLEMS Type Condition ICD9-CM Code DTB57-FM Code Onset Dates Condition Status SNOMED Code Problem Hypertension, benign I10 Active 34781262 Problem Obstructive sleep apnea G47.33 Active 21439828 Problem Controlled type 2 diabetes mellitus without complication, without long -term current use of insulin E11.9 Active 679261629 Problem 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 Active 26943274 Problem Arthritis M19.90 Active 7631148 Problem Uncontrolled type 2 diabetes mellitus without complication, without long-term current use of insulin E11.65 Active 676268927 Problem Polyneuropathy G62.9 Active 45219082 Problem Fibromyalgia M79.7 Active [id number] ALLERGIES No Information ENCOUNTERS Encounter Location Date Diagnosis [facility] [place] [id number] [place] [address] 35045- 4893 Sep, [facility] [place] [id number] [place] [address] 97533- 9785 August, [facility] [place] [id number] [place] [address] 40515- 7959 August, [facility] [place] [address] 67665- 1408 August, [facility] [place] [id number] [place] [address] 78526- 8991 August, Fibromyalgia M79.7 [facility] [place] [address] 63487- 3006 Jul, Hypertension, benign I10 [facility] [place] [address] 51362- 7955 Jul, Fibromyalgia M79.7 [facility] [place] [id number] [place] [address] 40185- 0798 Jul, [facility] [place] [id number] [place] [address] 84045- 6152 Jun, [facility] [place] [id number] [place] [address] 72628- 6577 Jun, Hypertension, benign I10 ; Arthritis M19.90 ; [employer] current use 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 Z79.891 and Uncontrolled type 2 diabetes mellitus without complication, without long-term current use of insulin E11.65 [facility] [id number] [place] [address] 35106 -3443 Jun, Acute nasopharyngitis J00 and BMI 50.0-59.9, adult Z68.43 [facility] [place] [id number] [place] [address] 52693- 0849 Jun, Fibromyalgia M79.7 [facility] [place] [id number] [place] [address] 22364- 1153 May, [facility] [place] [address] 15356- 6871 May, Fibromyalgia M79.7 [facility] [place] [id number] [place] [address] 98601- 5228 Apr, Fibromyalgia M79.7 [facility] [place] [id number] [place] [address] 55431- 6011 Apr, [facility] [place] [id number] [place] [address] 97353- 5258 Apr, [facility] [place] [address] 16529- 5927 Apr, Arthritis M19.90 [facility] [place] [id number] [place] [address] 49541- 0292 Apr, Arthritis M19.90 [facility] [place] [address] [place] [address]- 2523 Apr, Arthritis M19.90 and Controlled type 2 diabetes mellitus without complication, without long-term current use of insulin E11.9 [facility] [place] [id number] [place] [address] 07404- 6391 Apr, [facility] [place] [address] 24355- 1391 Apr, Fibromyalgia M79.7 [facility] [place] [address] 71535- 7393 Mar, [facility] [place] [address] 96737- 4667 Mar, [facility] [place] [address] 75009- 5073 Mar, Fibromyalgia M79.7 [facility] [place] [address] 28132- 6807 Feb, [facility] [place] [address] 05135- 8077 Feb, [facility] [place] [address] 94173- 5648 Feb, [facility] [place] [id number] [place] [address] 92967- 3991 Feb, Fibromyalgia M79.7 [facility] [place] [address] 13501- 8958 Feb, Diabetes type 2, uncontrolled E11.65 and Encounter for immunization Z23 [facility] [place] [id number] [place] [address] 36428- 7703 Jan, [facility] [place] [address] 48163- 5547 Jan, Fibromyalgia M79.7 [facility] [place] [id number] [place] [address] 42877- 1946 Dec, [facility] [place] [address] [address]- 0639 Dec, Fibromyalgia M79.7 [facility] [place] [id number] [place] [address] 47273- 8554 Nov, [facility] [place] [id number] [place] [address] 56822- 1684 Nov, [facility] [place] [id number] [place] [address] 88055- 5165 Nov, 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 and Polyneuropathy G62.9 [facility] [place] [id number] [place] [address] 09079- 5112 Nov, [facility] [place] [id number] [place] [address] 92112- 8714 Nov, [facility] [place] [id number] [place] [address] 26704- 9599 Oct, Diabetes type 2, uncontrolled E11.65 [facility] [place] [id number] [place] [address] 67542- 5669 Oct, Diabetes type 2, uncontrolled E11.65 ; Polyneuropathy G62.9 and Pain in right wrist M25.531 [facility] [place] [id number] [place] [address] 73782- 5355 Oct, [facility] [place] [id number] [place] [address] 82411- 6376 Oct, Pain in left shoulder M25.512 [facility] [place] [id number] [place] [address] 24432- 3760 Sep, [facility] [place] [id number] [place] [address] 35715- 8318 Sep, Pain in left shoulder M25.512 [facility] [place] [id number] [place] [address] 31075- 3664 Sep, [facility] [place] [id number] [place] [address] 83339- 7206 August, Pain in left shoulder M25.512 [facility] [place] [address] [address]- 9203 Jul, [facility] [place] [id number] [place] [address] 76306- 9060 Jul, [facility] [place] [id number] [place] [address] 87800- 4009 Jul, Pain in left shoulder M25.512 [facility] [place] [id number] [place] [address] 72279- 6833 Jun, [facility] [place] [id number] [place] [address] 47968- 6171 Jun, [facility] [place] [id number] [place] [address] 13606- 2033 Jun, Diabetes type 2, uncontrolled E11.65 ; Fibromyalgia M79.7 and Arthritis M19.90 [facility] [place] [id number] [place] [address] 43492- 7669 Jun, Pain in left shoulder M25.512 [facility] [place] [id number] [place] [address] 33690- 1368 May, [facility] [place] [id number] [place] [address] 16069- 7091 May, Diabetes type 2, controlled E11.9 [facility] [place] [id number] [place] [address] 81260- 8507 May, [facility] [place] [id number] [place] [address] 30068- 1361 May, Uncontrolled type 2 diabetes mellitus without complication, without long-term current use of insulin E11.65 [facility] [place] [address] [address]- 6775 May, Pain in left shoulder M25.512 [facility] [place] [id number] [place] [address] 80486- 4992 May, Diabetes type 2, controlled E11.9 and Uncontrolled type 2 diabetes mellitus without complication, without long-term current use of insulin E11.65 [facility] [place] [id number] [address]- 6325 Apr, [facility] [place] [id number] [address]- 1370 Apr, [facility] [place] [id number] [place] [address] 75061- 6692 Mar, [facility] [place] [id number] [place] [address] 34005- 7081 Mar, [facility] [place] [id number] [place] [address] 81168- 8395 Mar, [facility] [place] [id number] [place] [address] 97884- 0448 Feb, [facility] [id number] [place] [address] [id number] Feb, Dental examination Z01.20 [facility] [place] [id number] [place] [address] 99886- 2191 Jan, [facility] [place] [id number] [place] [address] 05102- 4376 Dec, [facility] [place] [address] [address]- 4157 Dec, [facility] [place] [id number] [place] [address] 52551- 6992 Dec, [facility] [place] [address] [address]- 9694 Dec, Diabetes type 2, controlled E11.9 [facility] [place] [id number] 6882 Nov, [facility] [place] [id number] [address]- 7520 Nov, [facility] [place] [address] [facility] [id number] [place] [address]- 5434 Nov, [facility] [place] [id number] [place] [address]- 6010 Nov, [facility] [place] [address] [facility] [id number] [place] [address]- 2331 Oct, [facility] [place] [id number] [place] [address], [place] [address]- 1830 Oct, [facility] [place] [address] [facility] [id number] [place] [address]- 9842 Oct, [facility] [place] [id number] [place] [address], [place] [address]- 5541 Sep, [facility] [place] [id number] [place] [address]- 6288 Sep, Diabetes type 2, controlled E11.9 [facility] [place] [address] [place] [address]- 9097 Sep, Diabetes type 2, controlled E11.9 [facility] [place] [address] [place] [address]- 0079 August, [facility] [place] [address] [place] [address]- 2066 August, [facility] [place] [address] [place] [address]- 2526 August, Type 2 diabetes mellitus without complication E11.9 and Pain in left shoulder M25.512 [facility] [place] [address] [place] [address]- 3030 Jul, [facility] [place] [id number] [place] [address]- 5665 Jul, Diabetes type 2, controlled E11.9 and Hypertension, benign I10 [facility] [place] [address] [place] [address]- 1120 Jun, [facility] [place] [id number] [place] [address] 48133- 1057 Jun, [facility] [place] [id number] [place] [address] 17923- 1095 Jun, Diabetes 250.00 [facility] [place] [id number] [place] [address] 42524- 0876 Jun, [facility] [place] [address] 51645- 7934 May, Diabetes type 2, uncontrolled E11.65 [facility] [place] [id number] [place] [address] 38469- 2401 May, [facility] [place] [id number] [place] [address] 81441- 8878 Apr, Type 2 diabetes mellitus without complication E11.9 [facility] [place] [id number] [place] [address] 27992- 2822 Apr, Encounter for immunization Z23 [facility] [place] [id number] [place] [address] 34800- 9096 Apr, [facility] [place] [id number] [place] [address] 17854- 3029 Mar, [facility] [place] [id number] [place] [address] 23274- 5000 Mar, [facility] [place] [id number] [place] [address] 74032- 2644 Mar, [facility] [place] [id number] [place] [address] 88270- 9573 Feb, [facility] [place] [id number] [place] [address] 45406- 4612 Jan, [facility] [place] [id number] [place] [address] 85115- 0032 Jan, [facility] [place] [id number] [place] [address] 65674- 5642 Jan, [facility] [place] [address] [address]- 1808 Dec, Diabetes 250.00 and COPD (chronic obstructive pulmonary disease) 496 [facility] [place] [address] [address]- 6293 Dec, [facility] [place] [id number] [place] [address] 89639- 4329 Dec, [facility] [place] [id number] [place] [address] 00991- 9786 Nov, [facility] [place] [id number] [place] [address] 40245- 2384 Oct, Diabetes 250.00 [facility] [place] [id number] [place] [address] 50603- 7364 Sep, [facility] [place] [id number] [place] [address] 38351- 7057 Sep, [facility] [place] [id number] [place] [address] 79400- 2706 Sep, [facility] [place] [id number] [place] [address] 11357- 5373 Sep, Diabetes 250.00 [facility] [place] [address] [address]- 7798 Sep, [facility] [place] [id number] [place] [address] 92738- 9944 Sep, [facility] [place] [id number] [place] [address] 02298- 0635 August, Hypertension, essential, benign 401.1 ; Coronary atherosclerosis of [place] coronary artery 414.01 and Diabetic neuropathy associated with type 2 diabetes mellitus 250.60 [facility] [place] [id number] [address] Jul, [facility], [place] [address] [id number] [place] [address] Jul, [facility] [place] [facility] [address] [id number] [place] [address] 13 Jul, 2014 [facility] [place] [facility] [address] [id number] [place] [address] Jun, [facility] [place] [facility] [address] [id number] [place] [address] Jun, [facility] [place] [facility] [address] [id number] [place] [address] Jun, [facility] [place] [facility] [address] [id number] [place] [address] Jun, [facility] [place] [facility] [address] [id number] [place] [address] Jun, [facility] [place] [facility] [address] [facility] [id number] [place] [address] May, [facility] [place] [facility] [address] [id number] [place] [address] May, [facility] [place] [facility] [address] [id number] [place] [address] May, [facility] [place] [facility] [address] [facility] [id number] [place] [address] May, [facility] [place] [facility] [address] [id number] [place] [address] May, [facility] [place] [facility] [address] [id number] [place] [address] May, [facility] [place] [facility] [address] [id number] [place] [address] May, [facility] [place] [facility] [address] [id number] [place] [address] Apr, [facility] [place] [facility] [address] [id number] [place] [address]- [address] Apr, [facility] [place] [facility] [address] [id number] [place] [address] Apr, [facility] [place] [facility] [address] [id number] [place] [address] 1852 Apr, [facility] [place] [facility] [address] [id number] [place] [address] Mar, [facility] [place] [facility] [address] [id number] [place] [address] Mar, [facility] [place] [facility] [address] [id number] [place] [address] Mar, [facility] [place] [facility] [address] [id number] [place] [address] Mar, [facility] [place] [facility] [address] [id number] [place] [address] Feb, [facility] [place] [facility] [address] [id number] [place] [address]- [address] Feb, [facility] [place] [facility] [address] [id number] [place] [address] Feb, [facility] [place] [facility] [address] [id number] [place] [address] Feb, [facility] [place] [facility] [address] [facility] [id number] [place] [address]- [address] Feb, [facility] [place] [facility] [address] [id number] [place] [address]- [address]99 Feb, [facility] [place] [facility] [address] [id number] [place] [address]- [address] Feb, [facility] [place] [facility] [address] [id number] [place] [address] Jan, [facility] [place] [facility] [address] [id number] [place] [address] Jan, [facility] [place] [facility] [address] [id number] [place] [address]- [address] Dec, [facility] [place] [facility] [address] [id number] [place] [address]- [address] Dec, 2013 [facility] [place] [facility] [address] [id number] [place] [address]- [address] Dec, 2013 [facility] [place] [facility] [address] [id number] [place] [address] Dec, 2013 [facility] [place] [facility] [address] [id number] [place] [address] Dec, 2013 [facility] [place] [facility] [address] [id number] [place] [address] 8361 Dec, 2013 [facility] [place] [facility] [address] [id number] [place] [address] 7326 Dec, 2013 [facility] [place] [facility] [address] [id number] [place] [address] 4756 Dec, 2013 [facility] [place] [facility] [address] [id number] [place] [address] 6072 Nov, [facility] [place] [facility] [address] [id number] [place] [address] 1808 Nov, [facility] [place] [facility] [address] [id number] [place] [address]- 6291 Nov, [facility] [place] [facility] [address] [id number] [place] [address]- 9854 Nov, [facility] [place] [facility] [address] [id number] [place] [address]- 5104 Oct, [facility] [place] [facility] [address] [id number] [place] [address]- 3955 Oct, [facility] [place] [facility] [address] [id number] [place] [address]- 9534 Oct, [facility] [place] [facility] [address] [id number] [place] [address]- 4376 Oct, [facility] [place] [facility] [address] [id number] [place] [address]- 8265 Oct, [facility] [place] [facility] [address] [id number] [place] [address]- 7620 Oct, [facility] [place] [facility] [address] [id number] [place] [address]- 7455 Oct, [facility] [place] [facility] [address] [id number] [place] [address]- 5772 Oct, [facility] [place] [facility] [address] [id number] [place] [address]- 3141 Sep, [facility] [place] [facility] [address] [id number] [place] [address]- 7280 Sep, [facility] [place] [facility] [address] [id number] [place] [address]- 4597 August, [facility] [place] [facility] [address] [id number] [place] [address]- 3135 August, [facility] [place] [facility] [address] [id number] [place] [address]- 0854 Jul, [facility] [place] [facility] [address] [id number] [place] [address]- 7211 Jul, [facility] [place] [facility] [address] [id number] [place] [address]- 3034 Jul, [facility] [place] [facility] [address] [id number] [place] [address]- 8765 Jul, [facility] [place] [facility] [address] [id number] [place] [address]- 8838 Jul, [facility] [place] [facility] [address] [id number] [place] [address]- 7065 Jul, [facility] [place] [facility] [address] [id number] [place] [address]- 9675 Jul, [facility] [place] [facility] [address] [id number] [place] [address]- 0501 Jul, [facility] [place] [facility] [address] [id number] [place] [address]- 8023 24 Jun, 2013 [facility] [address] [id number] [place] [address]- 4888 24 Jun, 2013 [facility] [place] [facility] [address] [id number] [place] [address]- 2226 Jun, [facility] [place] [facility] [address] [id number] [place] [address]- 9396 Jun, [facility] [place] [facility] [address] [id number] [place] [address]- 5654 May, [facility] [place] [facility] [address] [id number] [place] [address]- 7502 May, [facility] [place] [facility] [address] [id number] [place] [address]- 9401 Apr, [facility] [place] [facility] [address] [id number] [place] [address]- 9106 Apr, [facility] [address] [id number] [place] [address]- 3384 Mar, [facility] [place] [facility] [address] [id number] [place] [address]- 0405 Mar, [facility] [place] [facility] [address] [id number] [place] [address]- 0006 Mar, [facility] [place] [facility] [address] [id number] [place] [address]- 3211 Mar, [facility] [place] [facility] [address] [id number] [place] [address]- 9097 Mar, [facility] [place] [facility] [address] [id number] [place] Mar[facility] [place] [facility] [address] [id number] [place] [address]- 0406 Feb, [facility] [place] [facility] [address] [id number] [place] [address]- 2957 Feb, [facility] [place] [facility] [address] [id number] [place] [address]- 3964 Feb, [facility] [place] [facility] [address] [id number] [place] [address]- 1098 Feb, [facility] [place] [facility] [address] [id number] [place] [address]- 7019 Feb, [facility] [place] [facility] [address] [id number] [place] [address]- 9686 Feb, [facility] [place] [facility] [address] [id number] [place] [address]- 0823 Feb, [facility] [place] [facility] [address] [id number] [place] [address]- 1888 Feb, [facility] [place] [facility] [address] [id number] [place] [address]- 5290 15 Jan, 2013 [facility] [place] [facility] [address] [id number] [place] [address]- 5447 15 Jan, 2013 [facility] [place] [facility] [address] [id number] [place] [address]- 2860 14 Jan, 2013 [facility] [place] [facility] [address] [id number] [place] [address]- 8985 14 Jan, 2013 [facility] [place] [facility] [address] [id number] [place] [address]- 7881 18 Dec, 2012 [facility] [place] [facility] [address] [id number] [place] [address]- 2849 13 Dec, 2012 [facility] [place] [facility] [address] [id number] [place] [address]- 7898 2012 [facility] [place] [facility] [address] [id number] [address]- 0941 23 Nov, 2012 [facility] [place] [facility] [address] [id number] [place] [address]- 6084 Nov, [facility] [place] [facility] [address] [id number] [place] [address]- 2948 Oct, [facility] [address] [id number] [place] [address]- 5598 Oct, [facility] [address] [id number] [place] [address]- 1672 Oct, [facility] [address] [id number] [place] [address]- 2135 Sep, [facility] [place] [facility] [address] [id number] [place] [address]- 4755 Sep, [facility] [address] [id number] [place] [address]- 2471 Sep, [facility] [address] [id number] [place] [address]- 8024 Sep, [facility] [address] [id number] [place] [address]- 2492 Sep, [facility] [address] [id number] [place] [address]- 8863 Sep, [facility] [address] [id number] [place] [address]- 3217 August, [facility] [address] [id number] [place] [address]- 4719 August, [facility] [address] [id number] [place] [address]- 1998 August, [facility] [place] [facility] [address] [id number] [place] [address]- 7914 August, [facility] [place] [facility] [address] [id number] [place] [address]- 4675 August, [facility] [place] [facility] [address] [id number] [place] [address]- 8869 August, [facility] [address] [id number] [place] [address]- 2679 August, [facility] [address] [id number] [place] [address]- 7394 Jul, [facility] [address] [id number] [place] [address]- 8311 Jul, [facility] [place] [facility] [address] [id number] [place] [address]- 2976 Jun, [facility] [address] [id number] [place] [address]- 6536 Jun, [facility] [address] [id number] [place] [address]- 0133 May, [facility] [address] [id number] [place] [address]- 8988 May, [facility] [address] [id number] [place] [address]- 1559 Apr, [facility] [address] [id number] [place] [address]- 2586 Mar, [facility] [address] [id number] [place] [address]- 3398 Mar, [facility] [address] [id number] [place] [address]- 4644 Mar, [facility] [address] [id number] [place] [address]- 5789 Mar, [facility] [address] [id number] [place] [address]- 5814 Mar, [facility] [place] [facility] [address] [id number] [place] [address]- 1955 Mar, [facility] [place] [facility] [address] [id number] [place] [address]- 8994 Feb, [facility] [place] [facility] [address] [id number] [place] [address]01 Feb, [facility] [place] [facility] [address] [id number] [place] [address]- 6269 Feb, [facility] [place] [facility] [address] [id number] [place] [address]- 3751 Feb, [facility] [place] [facility] [address] [id number] [place] [address] Feb, [facility] [place] [facility] [address] [id number] [place] [address]- 1877 Feb, [facility] [place] [facility] [address] [id number] [place] [address]- 6244 Feb, [facility] [place] [facility] [address] [id number] [place] [address]- 5685 Feb, [facility] [place] [facility] [address] [id number] [place] [address]- 5532 Jan, [facility] [place] [facility] [address] [id number] [place] [address]- 0421 Jan, [facility] [place] [facility] [address] [id number] [place] [address]- 2443 Dec, [facility] [place] [facility] [address] [id number] [place] [address]- 1508 Dec, [facility] [place] [facility] [address] [id number] [place] [address]- 3692 Dec, [facility] [place] [facility] [address] [id number] [place] [address]- 6555 Dec, [facility] [place] [facility] [address] [id number] [place] [address]- 8566 Dec, [facility] [place] [facility] [address] [id number] [place] [address]- 7652 Nov, [facility] [place] [facility] [address] [id number] [place] 8844 Oct, [facility] [place] [facility] [address] [id number] [place] [address]43 Oct, [facility] [place] [facility] [address] [id number] [place] [address]- 7028 29 Sep, 2011 [facility] [place] [facility] [address] [id number] [place] [address]- 8507 Sep, [facility] [place] [facility] [address] [id number] [place] [address]- 3580 Sep, [facility] [place] [facility] [address] [id number] [place] [address]- 7693 Sep, [facility] [place] [facility] [address] [id number] [place] [address]- 9255 Sep, [facility] [place] [facility] [address] [id number] [place] [address]- 9235 Sep, [facility] [place] [facility] [address] [id number] [place] [address]- 7178 Sep, [facility] [place] [facility] [address] [id number] [place] [address]- 4204 Sep, [facility] [address] [id number] [place] [address]- 0644 August, [facility] [place] [facility] [address] [id number] [place] [address]- 3700 August, [facility] [place] [facility] [address] [id number] [place] [address]- 4173 August, [facility] [place] [facility] [address] [id number] [place] [address]- 2487 Jul, [facility] [place] [facility] [address] [id number] [place] [address]- 2137 Jul, [facility] [place] [facility] [address] [id number] [place] [address]- 4394 Jun, [facility] [place] [facility] [address] [id number] [place] [address]- 1595 Jun, [facility] [place] [facility] [address] [id number] [place] [address]- 2689 Jun, [facility] [place] [facility] [address] [id number] [place] [address]- 8879 Jun, [facility] [place] [facility] [address] [id number] [place] [address]- 5797 May, [facility] [place] [facility] [address] [id number] [place] [address]- 6350 May, [facility] [place] [facility] [address] [id number] [place] [address]- 6937 16 Apr, 2011 [facility] [place] [facility] [address] [id number] [place] [address]- 8166 Apr, [facility] [place] [facility] [address] [id number] [place] [address]- 2674 Apr, [facility] [place] [facility] [address] [facility] [id number] [place] [address]- 9065 Mar, [facility] [place] [facility] [address] [id number] [place] [address]- 9923 Mar, [facility] [place] [facility] [address] [id number] [place] [address]- 2134 Mar, [facility] [place] [facility] [address] [facility] [id number] [place] [address]- 5762 Feb, [facility] [place] [facility] [address] [id number] [place] [address]- 4346 Feb, [facility] [place] [facility] [address] [id number] [place] [address]- 7649 Feb, [facility] [place] [facility] [address] [id number] [place] [address]- 1862 Feb, [facility] [place] [facility] [address] [id number] [place] [address]- 2836 Jan, [facility] [place] [facility] [address] [id number] [place] [address]- 3636 14 Jan, 2011 [facility] [place] [facility] [address] [id number] [address]- 7376 12 Jan, 2011 [facility] [place] [id number] [place] [address]- 6909 16 Dec, 2010 [facility] [place] [id number] [place] [address]- 8756 Oct, [facility] [place] [id number] [place] [address]- 6366 Mar, [facility] [place] [id number] [place] [address]- 4529 Feb, [facility] [place] [id number] [place] [address] 2435 Feb, [facility] [place] [id number] [place] [address]- 2756 May, [facility] [place] [id number] [place] [address]- 7724 Apr, [facility] [place] [id number] [place] [address]- 2922 Mar, [facility] [place] [id number] [address]- 7292 Jan, [facility] [place] [id number] [address]- 1203 Oct, [facility] [place] [id number] [address]- 6035 Jul, [facility] [place] [address] [id number] [address]- 7024 Mar, [facility] [place] [id number] [address]- 9583 Feb, [facility] [place] [id number] [address]- 4744 Jan, IMMUNIZATIONS No Known Immunizations SOCIAL HISTORY Never Assessed REASON FOR VISIT Corrected script PLAN OF CARE VITAL SIGNS MEDICATIONS Medication Instructions Dosage Frequency Start Date End Date Duration Status Bydureon 2 MG Subcutaneous once weekly 2mg 28 Active RESULTS No Results PROCEDURES No Known [...]
--- OUTSIDE RECORDS SUMMARY | 2017-10-01 19:35 | XMS REPORT ---
Author Author KATHYA FISCHER [facility] Address [address] [place] [address] Care Team Providers Care It Desktop Support Technician Name Role Phone KATHYA FISCHER Unavailable PROBLEMS Type Condition ICD9-CM Code HID34-HT Code Onset Dates Condition Status SNOMED Code Problem Diabetes 250.00 Active 34758508 Problem Hypertension, benign I10 Active 39800864 Problem Diabetes type 2, uncontrolled E11.65 Active 804930875 Problem Obstructive sleep apnea G47.33 Active 03711055 Problem 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 Active 99076219 Problem Polyneuropathy G62.9 Active 96975931 Problem Uncontrolled type 2 diabetes mellitus without complication, without long-term current use of insulin E11.65 Active 183962649 Problem Diabetes type 2, controlled E11.9 Active 06161233 Problem Fibromyalgia M79.7 Active 712366725 Problem Arthritis M19.90 Active 3169261 ALLERGIES No Information SOCIAL HISTORY Never Assessed [...]
--- OUTSIDE RECORDS SUMMARY | 2017-10-01 19:35 | XMS REPORT ---
Author Author KATHYA FISCHER Organization [employer] Address Unknown Phone Unavailable Care Team Providers Care Purchase Order Checker Name Role Phone KATHYA FISCHER CP [...] Date End Date Status Dosage Tramadol HCl [facility] [address]-05 50 MG TAKE TWO TABLETS BY MOUTH EVERY 8 HOURS NEEDED Lyrica [facility] [address]-71 200 MG TAKE ONE CAPSULE BY MOUTH THREE TIMES DAILY Symbicort [facility] [address]-95 160-4.5 MCG/ACT Inhalation Twice a day Feb 19, 2015 1 puff Results No Known Results Summary Purpose [employer] Submission
--- OUTSIDE RECORDS SUMMARY | 2017-10-01 19:35 | XMS REPORT ---
Author Author KATHYA FISCHER [facility] Address [address] [place] [address] Care Team Providers Care Jitterbug Operator Name Role Phone KATHYA FISCHER Unavailable PROBLEMS Type Condition ICD9-CM Code WRF79-DM Code Onset Dates Condition Status SNOMED Code Problem Diabetes 250.00 Active 66071411 Problem Hypertension, benign I10 Active 96541423 Problem Diabetes type 2, uncontrolled E11.65 Active 186711394 Problem Obstructive sleep apnea G47.33 Active 44864398 Problem 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 Active 15792518 Problem Polyneuropathy G62.9 Active 06487704 Problem Uncontrolled type 2 diabetes mellitus without complication, without long-term current use of insulin E11.65 Active 882906734 Problem Diabetes type 2, controlled E11.9 Active 87744418 Problem Fibromyalgia M79.7 Active 584517426 Problem Arthritis M19.90 Active 4889042 ALLERGIES Substance Reaction Event Type Date Status Lasix Unknown Drug Allergy Jun, Active Cozaar Unknown Drug Allergy Jun, Active Zinc Unknown Drug Allergy Jun, Active SulfADIAZINE Unknown Drug Allergy Jun, Active Androgel Unknown Drug Allergy Jun, Active Cyclobenzaprine Hcl Oral Tablet 10 10 Mg Tablet dc'd potential for ss Non Drug Allergy Jun, Active Wool itching Non Drug Allergy Jun, Active rhubarb Unknown Non Drug Allergy Jun, Active raspberry Unknown Non Drug Allergy Jun, Active equal Unknown Non Drug Allergy Jun, Active sweet and low Unknown Non Drug Allergy Jun, Active horseradish Unknown Non Drug Allergy Jun, Active chromates Unknown Non Drug Allergy Jun, Active latex rash Non Drug Allergy Jun, Active SOCIAL HISTORY Never Assessed PLAN OF CARE Activity Details Follow Up 4 Months Reason:diabetes VITAL SIGNS Height 71 in 2016-07-04 Weight 391.4 lbs 2016-07-04 Temperature 97.2 degrees Fahrenheit 2016-07-04 Heart Rate 82 bpm 2016-07-04 Respiratory Rate 20 2016-07-04 BMI 54.58 kg/m2 2016-07-04 Blood pressure systolic 118 mmHg 2016-07-04 Blood pressure diastolic 78 mmHg 2016-07-04 MEDICATIONS Medication Instructions Dosage Frequency Start Date End Date Duration Status Furosemide 20 mg Orally Once a day 2 tablet in the AM and 1 tablet in PM 24h Active Glucometer as directed Oct, Active Lyrica 200 mg Orally Three times a day 1 capsule 8h 28 days Active Viagra 100 MG Orally Once a day 1 tablet as needed 24h Active Amitriptyline HCl 100 MG TAKE ONE TABLET BY MOUTH ONCE DAILY 30 Active Aspirin 325 MG Orally Once a day 1 tablet 24h Active Fish Oil 1200 MG Orally Once a day 4 capsule 24h Active Duloxetine HCl 60 MG TAKE ONE CAPSULE BY MOUTH TWICE DAILY 30 Active Symbicort 160-4.5 MCG/ACT Inhalation Twice a day 2 puff 12h Feb, Active Tylenol 500 MG/15ML Active Tamsulosin HCl 0.4 MG Orally Once a day 1 capsule 30 minutes after the same meal each day 24h Active potassium 1 tab Active lidocaine topical 5 %(700 mg/patch) 3 PATCH by Topical route 1 time per day apply on bilateral wrist and left ankle Jan, Active ProAir HFA 108 (90 Base) MCG/ACT Inhalation every 4 hrs 2 puffs as needed 4h Active Vitamin D 2000 UNIT Active Vitamin B Complex Active Bydureon 2 MG Subcutaneous once weekly Inject May, Active Silvadene 1 % Externally Once a day 1 application to affected area 24h Nov, Active Lancets - as directed Oct, Active Blood Glucose Test 1 1 test Jul, Active Hydrochlorothiazide 25 MG Orally Once a day 1 tablet 24h 90 Active Cymbalta 30 MG TAKE ONE CAPSULE BY MOUTH DAILY ALONG WITH DULOXETINE 60 MG 30 Active Cyclobenzaprine HCl 10 MG Orally Three times a day 1 tablet 8h Active True Metrix Blood Glucose Test - once a day Oct, Active Tramadol HCl 50 mg Orally every 8 hrs prn TWO TABLETS 28 days Active GlipiZIDE 5 MG Orally Once a day 1 tablet 24h 90 Active Atorvastatin Calcium 40 MG Orally Once a day 1 tablet 24h Active Metoprolol Tartrate 100 MG TAKE ONE TABLET BY MOUTH TWICE DAILY 90 Active RESULTS No Results PROCEDURES No Known [...]
--- OUTSIDE RECORDS SUMMARY | 2017-10-01 19:35 | XMS REPORT ---
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 Name Role Phone KATHYA FISCHER Unavailable PROBLEMS Type Condition ICD9-CM Code IUN67-ZI Code Onset Dates Condition Status SNOMED Code Problem Hypertension, benign I10 Active 97166097 Problem Obstructive sleep apnea G47.33 Active 26712218 Problem Controlled type 2 diabetes mellitus without complication, without long -term current use of insulin E11.9 Active 512000637 Problem 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 Active 85448407 Problem Arthritis M19.90 Active 0797028 Problem Uncontrolled type 2 diabetes mellitus without complication, without long-term current use of insulin E11.65 Active 017736479 Problem Polyneuropathy G62.9 Active 70592301 Problem Fibromyalgia M79.7 Active [id number] ALLERGIES No Information ENCOUNTERS Encounter Location Date Diagnosis [facility] [address] [address]- [address] Jul, Hypertension, benign I10 [facility] [id number] [place] [address] 52744- 2545 Jul, Fibromyalgia M79.7 [facility] [id number] [place] [address] 40466- 5311 Jul, [facility] [id number] [place] [address] 47699- 7434 Jun, [facility] [address] [address]- [address]99 Jun, Hypertension, benign I10 ; Arthritis M19.90 ; 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 and Uncontrolled type 2 diabetes mellitus without complication, without long-term current use of insulin E11.65 [facility] [id number] [place] [address] 47561 -5310 Jun, Acute nasopharyngitis J00 and BMI 50.0-59.9, adult Z68.43 [facility] [address] 24284- 7796 Jun, Fibromyalgia M79.7 [facility] [id number] [place] [address] 72406- 9756 May, [facility] [address] 38320- 6550 May, Fibromyalgia M79.7 [facility] [id number] [place] [address] 64495- 6378 Apr, Fibromyalgia M79.7 [facility] [id number] [place] [address] 11152- 9718 Apr, [facility] [address] [address]- 1998 Apr, [facility] [id number] [place] [address] 25915- 7807 Apr, Arthritis M19.90 [facility] [address] 85358- 1760 Apr, Arthritis M19.90 [facility] [id number] [place] [address] 92408- 5872 Apr, Arthritis M19.90 and Controlled type 2 diabetes mellitus without complication, without long-term current use of insulin E11.9 [facility] [id number] [place] [address] 30035- 8049 Apr, [facility] [id number] [place] [address] 72340- 6006 Apr, Fibromyalgia M79.7 [facility] [id number] [place] [address] 24029- 7956 Mar, [facility] [id number] [place] [address] 20692- 1468 Mar, [facility] [id number] [place] [address] 41933- 7790 Mar, Fibromyalgia M79.7 [facility] [id number] [place] [address] 59636- 7652 Feb, [facility] [id number] [place] [address] 62290- 1964 Feb, [facility] [address] 48125- 0630 Feb, [facility] [id number] [place] [address] 51971- 7474 Feb, Fibromyalgia M79.7 [facility] [address] 76664- 2434 Feb, Diabetes type 2, uncontrolled E11.65 and Encounter for immunization Z23 [facility] [address] 66627- 5909 Jan, [facility] [id number] [place] [address] 61030- 7848 Jan, Fibromyalgia M79.7 [facility] [id number] [place] [address] 02260- 7523 Dec, [facility] [id number] [place] [address] 38182- 2033 Dec, Fibromyalgia M79.7 [facility] [id number] [place] [address] 80813- 2064 Nov, [facility] [id number] [place] [address] 73895- 3789 Nov, [facility] [id number] [place] [address] 16616- 3829 Nov, 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 and Polyneuropathy G62.9 [facility] [id number] [place] [address] 61830- 6024 Nov, [facility] [address] [facility] [id number] [address]- 1337 Nov, [facility] [address] [facility] [id number] [place] [address] 70714- 1126 Oct, Diabetes type 2, uncontrolled E11.65 [facility] [id number] [place] [address] 67188 2546 Oct, Diabetes type 2, uncontrolled E11.65 ; Polyneuropathy G62.9 and Pain in right wrist M25.531 [facility] [address] [facility] [id number] [place] [address], [place] [address] 2546 Oct, [facility] [address] [facility] [id number] [place] [address] 28902 2546 Oct, Pain in left shoulder M25.512 [facility] [id number] [place] [address] 02028- 1036 Sep, [facility] [id number] [place] [address] 86284- 2452 Sep, Pain in left shoulder M25.512 [facility] [id number] [place] [address] 41157- 6326 Sep, [facility] [address] [address]- 5446 August, Pain in left shoulder M25.512 [facility] [address] [address] 2546 Jul, [facility] [address] [id number] [address] 2546 Jul, [facility] [id number] [place] [address] 04729- 2546 Jul, Pain in left shoulder M25.512 [facility] [address] 0856 Jun, [facility] [id number] [place] [address] 71582- 8609 17 Jun, 2016 [facility] [address] [address]- 0886 17 Jun, 2016 Diabetes type 2, uncontrolled E11.65 ; Fibromyalgia M79.7 and Arthritis M19.90 [facility] [address] [address] 2546 14 Jun, 2016 Pain in left shoulder M25.512 [facility] [address] [address]- 9246 May, [facility] [id number] [place] [address] 25543- 9656 May, Diabetes type 2, controlled E11.9 [facility] [address] [address]- 5366 17 May, 2016 [facility] [id number] [place] [address] 30938- 8211 May, Uncontrolled type 2 diabetes mellitus without complication, without long-term current use of insulin E11.65 [facility] [address] [address]- 9088 May, Pain in left shoulder M25.512 [facility] [address] [address]- 3526 May, Diabetes type 2, controlled E11.9 and Uncontrolled type 2 diabetes mellitus without complication, without long-term current use of insulin E11.65 [facility] [address] [address]- 2499 Apr, [facility] [address] [address]- 9546 Apr, [facility] [address] 9696 Mar, [facility] [address] [address]- 3816 Mar, [place] [address] [id number] [place] [address]- 0649 Mar, [facility] [address] [id number] [place] [address]- 4538 Feb, [facility] [address] [id number] [place] [id number] Feb, Dental examination Z01.20 [facility] [address] [id number] [place] [address]- 2976 Jan, [facility] [address] [id number] [place] [address]- 0100 Dec, [facility] [address] [id number] [place] [address]- 7720 Dec, [facility] [address] [id number] [place] [address]- 9033 Dec, [facility] [address] [id number] [place] [address]- 0425 Dec, Diabetes type 2, controlled E11.9 [facility] [address] [id number] [place] [address]- 8119 Nov, [facility] [address] [id number] [place] [address]- 7619 Nov, [facility] [address] [id number] [place] [address]- 3185 Nov, [facility] [address] [id number] [address]- 8579 Nov, [facility] [address] [id number] [place] [address]- 8872 Oct, [facility] [address] [id number] [place] [address]- 1101 Oct, [facility] [address] [id number] [place] [address]- 0656 Oct, [facility] [address] [address]- 0124 Sep, [facility] [address] [address]- 4766 Sep, Diabetes type 2, controlled E11.9 [facility] [address] [address]- 2547 Sep, Diabetes type 2, controlled E11.9 [facility] [id number] [place] [address] 94431- 9058 August, [facility] [id number] [place] [address] 61873- 4912 August, [facility] [id number] [place] [address] 39876- 4058 August, Type 2 diabetes mellitus without complication E11.9 and Pain in left shoulder M25.512 [facility] [id number] [address]- 4407 Jul, [facility] [id number] [place] [address] 26590- 9118 Jul, Diabetes type 2, controlled E11.9 and Hypertension, benign I10 [facility] [address] [address]- 1783 Jun, [facility] [address] [address]- 2132 Jun, [facility] [address] [address]- 1754 Jun, Diabetes 250.00 [facility] [address] [address]- 8430 Jun, [facility] [address] [address]- 1604 May, Diabetes type 2, uncontrolled E11.65 [facility] [address] [address]- 2406 May, [facility] [address] [address]- 1488 Apr, Type 2 diabetes mellitus without complication E11.9 [facility] [id number] [place] [address] 78573- 6257 Apr, Encounter for immunization Z23 [facility] [id number] [place] [address], [place] [address]- 7753 Apr, [facility] [id number] [place] [address] 20789- 2746 Mar, [facility] [id number] [place] [address], [place] [address]- 0324 Mar, [facility] [id number] [place] [address] 77623- 0402 Mar, [facility] [id number] [place] [address] 36045- 4722 Feb, [facility] [id number] [place] [address] 23060- 4779 Jan, [facility] [id number] [place] [address] 71861- 9015 Jan, [facility] [id number] [place] [address] 81070- 0979 Jan, [facility] [id number] [place] [address] 25208- 9860 Dec, Diabetes 250.00 and COPD (chronic obstructive pulmonary disease) 496 [facility] [address] [address]- 7968 Dec, [facility] [id number] [place] [address] 77476- 3804 Dec, [facility] [address] [address]- 7054 Nov, [facility] [id number] [place] [address] 84901- 8053 Oct, Diabetes 250.00 [facility] [address] [address]- 1455 Sep, [facility] [address] 7427 Sep, [facility] [address] [address]- 4528 Sep, [facility] [address] [address]- 8850 Sep, Diabetes 250.00 [facility] [address] 4768 Sep, [facility] [id number] [address]- 1018 Sep, [facility] [address] 7393 August, Hypertension, essential, benign 401.1 ; Coronary atherosclerosis of [place] coronary artery 414.01 and Diabetic neuropathy associated with type 2 diabetes mellitus 250.60 [facility] [address] [address]- 7501 Jul, [facility] [address] [address]- 2765 Jul, [facility] [address] [address]- 6950 Jul, [facility] [address] [address]- 2086 Jun, [facility] [address] 9772 Jun, [facility] [address] 5490 Jun, [facility] [address] 8010 Jun, [facility] [id number] [place] [address]- 1211 Jun, [facility] [place] [facility] [address] [id number] [place] [address]- 1973 May, 2014 [facility] [place] [facility] [address] [id number] [place] 7436 May, 2014 [facility] [place] [facility] [address] [id number] [place] [address]- 5328 May, 2014 [facility] [place] [facility] [address] [id number] [place] [address]- 0598 May, 2014 [facility] [place] [facility] [address] [id number] [place] [address]- 2524 May, 2014 [facility] [place] [facility] [address] [facility] [id number] [place] 4744 May, 2014 [facility] [place] [facility] [address] [facility] [id number] [place] [address]- 0893 May, [facility] [place] [facility] [address] [facility] [id number] [place] [address]- 3168 Apr, [facility] [place] [facility] [address] [facility] [id number] [place] [address]- 9831 Apr, [facility] [place] [facility] [address] [facility] [id number] [place] [address]- 4235 Apr, [facility] [place] [facility] [address] [id number] [place] [address]- 0455 Apr, [facility] [place] [facility] [address] [id number] [place]- 4350 Mar, [facility] [place] [facility] [address] [id number] [place] [address]- 5896 Mar, [facility] [place] [facility] [address] [facility] [id number] [place] [address]- 2063 Mar, [facility] [place] [facility] [address] [id number] [place] [address]- 5990 Mar, [facility] [place] [facility] [address] [id number] [place] [address]- 6051 Feb, [facility] [place] [facility] [address] [id number] [place] [address]- 1382 Feb, [facility] [place] [facility] [address] [id number] [place] [address]- 5624 Feb, [facility] [place] [facility] [address] [id number] [place] [address]- 9365 Feb, [facility] [place] [facility] [address] [id number] [place] [address]- 7802 Feb, [facility] [place] [facility] [address] [id number] [place] [address]- 9984 Feb, [facility] [place] [facility] [address] [id number] [place] [address]- 4581 Feb, [facility] [place] [facility] [address] [id number] [place] [address]- 3916 Jan, [facility] [place] [facility] [address] [id number] [place] [address]- 1302 Jan, [facility] [place] [facility] [address] [id number] [place] [address]- 4957 Dec, [facility] [place] [facility] [address] [id number] [place] [address]- 6076 Dec, [facility] [place] [facility] [address] [id number] [place] [address]- 2907 10 Dec, 2013 [facility] [place] [facility] [address] [id number] [place] [address]- 2548 10 Dec, 2013 [facility] [place] [facility] [address] [id number] [place] [address]- 4825 Dec, [facility] [place] [facility] [address] [id number] [place] [address]- 2004 04 Dec, 2013 [facility] [place] [facility] [address] [id number] [place] [address]- 2546 Dec, [facility] [place] [facility] [address] [id number] [place] [address]- 8266 Dec, [facility] [place] [facility] [address] [id number] [place] [address]- 6326 Nov, [facility] [place] [facility] [address] [id number] [place] [address]- 8502 Nov, [facility] [place] [facility] [address] [id number] [place] [address]- 0456 Nov, [facility] [place] [facility] [address] [id number] [place] [address]- 2822 Nov, [facility] [place] [facility] [address] [id number] [place] [address]- 1131 Oct, [facility] [place] [facility] [address] [id number] [place] [address]- 7298 Oct, [facility] [place] [facility] [address] [id number] [place] [address]- 8344 Oct, [facility] [place] [facility] [address] [id number] [place] [address]- 6274 Oct, [facility] [place] [facility] [address] [id number] [place] [address]- 7764 Oct, [facility] [place] [facility] [address] [id number] [place] [address]- 1814 Oct, [facility] [place] [facility] [address] [id number] [place] [address]- 3167 Oct, [facility] [place] [facility] [address] [id number] [place] [address]- 8609 Oct, [facility] [place] [facility] [address] [id number] [place] [address]- 8387 Sep, [facility] [place] [facility] [address] [id number] [place] 5561 Sep, [facility] [place] [facility] [address] [id number] [place] [address]- 7508 August, [facility] [place] [facility] [address] [id number] [place] [address]- 2072 August, [facility] [place] [facility] [address] [id number] [place] [address]- 9766 Jul, [facility] [place] [facility] [address] [id number] [place] [address]- 0659 Jul, [facility] [place] [facility] [address] [id number] [place] [address]- 6166 Jul, [facility] [place] [facility] [address] [id number] [place] [address]- 0748 Jul, [facility] [place] [facility] [address] [id number] [place] [address]- 1293 Jul, [facility] [place] [facility] [address] [id number] [place] [address]- 6164 Jul, [facility] [place] [facility] [address] [id number] [place] [address]- 2576 Jul, [facility] [place] [facility] [address] [id number] [place] [address]- 5841 Jul, [facility] [place] [facility] [address] [id number] [place] [address]- 9269 Jun, [facility] [place] [facility] [address] [id number] [place] [address]- 1570 Jun, [facility] [place] [facility] [address] [id number] [place] [address]- 2861 Jun, [facility] [place] [facility] [address] [id number] [place] [address]- 6924 Jun, [facility] [place] [facility] [address] [id number] [place] [address]- 3312 May, [facility] [place] [facility] [address] [id number] [place] [address]- 3443 18 May, 2013 [facility] [address] [id number] [place] [address]- 9828 Apr, [facility] [place] [facility] [address] [id number] [place] [address] Apr, [facility] [address] [id number] [place] [address] Mar, [facility] [place] [facility] [address] [id number] [place] [address] Mar, [facility] [address] [id number] [place] [address] Mar, [facility] [place] [facility] [address] [id number] [place] [address] Mar, [facility] [address] [id number] [place] [address] Mar, [facility] [place] [facility] [address] [id number] [place] [address] Mar, [facility] [address] [id number] [place] [address] Feb, [facility] [address] [id number] [place] [address] Feb, [facility] [place] [facility] [address] [id number] [place] [address] Feb, [facility] [place] [facility] [address] [id number] [address] Feb, [facility] [place] [facility] [address] [id number] [place] [address] Feb, [facility] [place] [facility] [address] [id number] [place] [address] Feb, [facility] [place] [facility] [address] [id number] [address] Feb, [facility] [place] [facility] [address] [id number] [place] [address] Feb, [facility] [place] [facility] [address] [id number] [place] [address] 15 Jan, 2013 [facility] [place] [facility] [address] [id number] [place] [address] 15 Jan, 2013 [facility] [place] [facility] [address] [id number] [place] [address] 14 Jan, 2013 [facility] [place] [facility] [address] [id number] [place] [address] 14 Jan, 2013 [facility] [place] [facility] [address] [id number] [place] [address] 18 Dec, 2012 [facility] [place] [facility] [address] [id number] [place] [address] Dec, [facility] [place] [facility] [address] [id number] [place] [address] 2012 [facility] [place] [facility] [address] [id number] [place] [address] Nov, [facility] [place] [facility] [address] [id number] [place] [address] Nov, [facility] [place] [facility] [address] [id number] [place] [address] Oct, [facility] [place] [facility] [address] [id number] [place] [address] Oct, [facility] [place] [facility] [address] [id number] [place] [address] Oct, [facility] [place] [facility] [address] [id number] [place] [id number] Sep, [facility] [place] [facility] [address] [id number] [place] [address] Sep, [facility] [place] [facility] [address] [id number] [place] [address] Sep, [facility] [address] [id number] [place] [address] Sep, [facility] [place] [facility] [address] [id number] [place] [address] Sep, [facility] [address] [id number] [place] [address] Sep, [facility] [place] [facility] [address] [id number] [place] [address] August, [facility] [address] [id number] [place] [address] August, [facility] [address] [id number] [place] [address] August, [facility] [address] [id number] [place] [address] August, [facility] [place] [facility] [address] [id number] [place] [address] August, [facility] [address] [id number] [place] [address] August, [facility] [place] [facility] [address] [id number] [place] [address] August, [facility] [address] [id number] [place] [address] Jul, [facility] [place] [facility] [address] [id number] [place] [address] Jul, [facility] [place] [facility] [address] [id number] [place] [address] Jun, [facility] [place] [facility] [address] [id number] [place] [address] Jun, [facility] [place] [facility] [address] [id number] [place] [address] May, [facility] [place] [facility] [address] [id number] [place] [address] May, [facility] [address] [id number] [place] [address] Apr, [facility] [address] [id number] [place] [address] Mar, [facility] [address] [id number] [place] [address] Mar, [facility] [address] [id number] [place] [address] Mar, [facility] [address] [id number] [place] [address] Mar, [facility] [address] [id number] [place] [address] Mar, [facility] [address] [id number] [place] [address] Mar, [facility] [address] [id number] [place] [address] Feb, [facility] [address] [id number] [place] [address] Feb, [facility] [address] [id number] [place] [address] Feb, [facility] [place] [facility] [address] [id number] [place] [address] Feb, [facility] [address] [id number] [place] [address] Feb, [facility] [place] [facility] [address] [id number] [place] [address] Feb, [facility] [place] [facility] [address] [id number] [place] [address] Feb, [facility] [address] [id number] [place] [address] Feb, [facility] [place] [facility] [address] [id number] [place] [address] Jan, [facility] [place] [facility] [address] [id number] [place] [address] Jan, [facility] [place] [facility] [address] [id number] [place] [address] 28 Dec, 2011 [facility] [place] [facility] [address] [id number] [place] [address] Dec, [facility] [place] [facility] [address] [id number] [place] [address] Dec, [facility] [place] [facility] [address] [id number] [place] [address] Dec, [facility] [place] [facility] [address] [id number] [place] [address] Dec, [facility] [place] [facility] [address] [id number] [address] Nov, [facility] [place] [facility] [address] [id number] [place] [address] Oct, [facility] [place] [facility] [address] [facility] [id number] [address] Oct, [facility] [place] [facility] [address] [facility] [id number] [place] [address] Sep, [facility] [place] [facility] [address] [id number] [place] [address] Sep, [facility] [place] [facility] [address] [id number] [place] [address] Sep, [facility] [place] [facility] [address] [id number] [place] [address] Sep, [facility] [place] [facility] [address] [facility] [id number] [place] [address] Sep, [facility] [place] [facility] [address] [id number] [address] Sep, [facility] [address] [id number] [place] [address] Sep, [facility] [place] [facility] [address] [id number] [place] [address] Sep, [facility] [place] [facility] [address] [facility] [id number] [place] [address] August, [facility] [place] [facility] [address] [id number] [place] [address] August, [facility] [place] [facility] [address] [id number] [place] [address] August, [facility] [place] [facility] [address] [id number] [place] [address] Jul, [facility] [id number] [place] [address] Jul, [facility] [place] [facility] [address] [facility] [id number] [place] [address] Jun, [facility] [place] [facility] [address] [id number] [place] [address] Jun, [facility] [place] [facility] [address] [id number] [place] [address] Jun, [facility] [place] [facility] [address] [id number] [place] [address] Jun, [facility] [place] [facility] [address] [facility] [id number] [place] [address] May, [facility] [place] [facility] [address] [id number] [place] [address] May, [facility] [place] [facility] [address] [id number] [place] [address] Apr, [facility] [place] [facility] [address] [facility] [id number] [place] [address] Apr, [facility] [place] [facility] [address] [id number] [place] [address] 80[address] Apr, [facility] [place] [facility] [address] [id number] [place] [address] Mar, [facility] [place] [facility] [address] [id number] [place] [address]68 Mar, [facility] [place] [facility] [address] [id number] [place] [address] 2273 Mar, [facility] [place] [facility] [address] [id number] [place] [address] Feb, [facility] [place] [facility] [address] [id number] [place] [address] Feb, [facility] [place] [facility] [address] [id number] [place] [address] Feb, [facility] [place] [facility] [address] [id number] [place] [address] Feb, [facility] [place] [facility] [address] [id number] [place] [address] Jan, [facility] [place] [facility] [address] [id number] [place] [address] Jan, [facility] [place] [facility] [address] [id number] [place] [address] Jan, [facility] [place] [facility] [address] [id number] [place] [address] Dec, [facility] [place] [facility] [address] [id number] [place] [address] 90[address] Oct, [facility] [place] [facility] [address] [id number] [place] [address] Mar, [facility] [place] [facility] [address] [id number] [place] [address] 1602 Feb, [facility] [place] [facility] [address] [id number] [place] [address] 15 Feb, 2010 [facility] [address] [id number] [address] May, [facility] [id number] [address] Apr, [facility] [id number] [address] Mar, [facility] [address]65[address] [address] Jan, [facility] [id number] [address] Oct, [facility] [address] [address] Jul, [facility] [address] [address] Mar, [facility] [address] [id number] [address] Feb, [facility] [address] [id number] [address] Jan, IMMUNIZATIONS No Known Immunizations SOCIAL HISTORY Never Assessed REASON FOR VISIT Controlled Med Refill 12/17/16 PLAN OF CARE VITAL SIGNS MEDICATIONS Medication [...]
--- OUTSIDE RECORDS SUMMARY | 2017-10-01 19:36 | XMS REPORT ---
Author Author KATHYA FISCHER [facility] Address [address] [place] [address] Care Team Providers Care Framing Carpenter Name Role Phone KATHYA FISCHER Unavailable PROBLEMS Type Condition ICD9-CM Code [id number] Code Onset Dates Condition Status SNOMED Code Problem Diabetes 250.00 Active 47988268 Problem Hypertension, benign I10 Active 93356607 Problem Diabetes type 2, uncontrolled E11.65 Active 323451085 Problem Obstructive sleep apnea G47.33 Active 36042915 Problem 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 Active 94995800 Problem Polyneuropathy G62.9 Active 82749717 Problem Uncontrolled type 2 diabetes mellitus without complication, without long-term current use of insulin E11.65 Active 412683147 Problem Diabetes type 2, controlled E11.9 Active 93133612 Problem Fibromyalgia M79.7 Active 755609766 Problem Arthritis M19.90 Active 6376008 ALLERGIES No Information SOCIAL HISTORY Never Assessed PLAN OF CARE VITAL SIGNS MEDICATIONS Unknown Medications RESULTS Name Result Date Reference Range UA W/CULTURE IF INDICATED (IN HOUSE) 2016-06-04 Lot # [id number] Exp date Feb 2017 Clarity cloudy Color brown Odor yes GLU Negative CHELLY Negative KET Negative SG >=1.030 BLO TRACE-intact pH 5.0 Protein Negative URO 0.2 NIT POSITIVE NI + Lot # [id number] Exp date 17 Jun 2017 CBC 2016-06-04 WBC 6.1 3.4-10.8 RBC 4.71 4.14-5.80 Hemoglobin 13.4 12.6-17.7 Hematocrit 41.4 37.5-51.0 MCV 88 79-97 MCH 28.5 26.6-33.0 MCHC 32.4 31.5-35.7 RDW 15.2 12.3-15.4 Platelets 144 150-379 Neutrophils 69 Lymphs 21 Monocytes 5 Eos 4 Basos 1 Neutrophils (Absolute) 4.2 1.4-7.0 Lymphs (Absolute) 1.3 0.7-3.1 Monocytes(Absolute) 0.3 0.1-0.9 Eos (Absolute) 0.2 0.0-0.4 Baso (Absolute) 0.0 0.0-0.2 Immature Granulocytes 0 Immature Grans (Abs) 0.0 0.0-0.1 LIPID PANEL 2016-06-04 Cholesterol, Total 146 100-199 Triglycerides 175 0-149 HDL Cholesterol 43 >39 VLDL Cholesterol [place] 35 5-40 LDL Cholesterol Calc 68 0-99 Comment: CMP 2016-06-04 Glucose, Serum 159 65-99 BUN 11 8-27 Creatinine, Serum 1.14 0.76-1.27 eGFR If NonAfricn Am 70 >59 eGFR If Africn Am 80 >59 BUN/Creatinine Ratio 10 10-22 Sodium, Serum 142 134-144 Potassium, Serum 3.9 3.5-5.2 Chloride, Serum 98 96-106 Carbon Dioxide, Total 25 18-29 Calcium, Serum 9.3 8.6-10.2 Protein, Total, Serum 6.3 6.0-8.5 Albumin, Serum 3.9 3.6-4.8 Globulin, Total 2.4 1.5-4.5 A/G Ratio 1.6 1.1-2.5 Bilirubin, Total 0.7 0.0-1.2 Alkaline Phosphatase, S 88 39-117 AST (SGOT) 19 0-40 ALT (SGPT) 17 0-44 URIC ACID, SERUM 2016-06-04 Uric Acid, Serum 7.0 3.7-8.6 CULTURE, URINE 2016-06-04 Urine Culture, Routine Final report Result 1 Escherichia coli Antimicrobial Susceptibility PROCEDURES Procedure Date Ordered Result [facility] Jun 04, 2016 VENIPUNCT, ROUTINE* Jun 04, 2016 URINALYSIS, AUTO, W/O SCOPE Jun 04, 2016 IMMUNIZATIONS No Known Immunizations MEDICAL (GENERAL) HISTORY [...]
--- OUTSIDE RECORDS SUMMARY | 2017-10-01 19:36 | XMS REPORT ---
Author Author KATHYA FISCHER Organization [employer] Address Unknown Phone Unavailable Care Team Providers Care Crabber Name Role Phone KATHYA FISCHER CP Unavailable [...] Start Date End Date Status Dosage Lyrica [facility] [address]-09 200 MG Orally Three times a day 1 capsule Results No Known Results Summary Purpose [employer] Submission
--- OUTSIDE RECORDS SUMMARY | 2017-10-01 19:36 | XMS REPORT ---
Author KATHYA Samuel Organization [employer] Address Unknown Phone Unavailable Care Team Providers Care Service Cashier Name Role Phone KATHYA FISCHER CP Unavailable [...] Date End Date Status Dosage Tramadol HCl [facility] [address]-29 50 MG Orally every 8 hrs prn TWO TABLETS Results No Known Results Summary Purpose [employer] Submission
--- OUTSIDE RECORDS SUMMARY | 2017-10-01 19:36 | XMS REPORT ---
Author Author KATHYA FISCHER Organization [facility] Address [address] [place] [address] Care Team Providers Care Employee Service Officer Name Role Phone KATHYA FISCHER Unavailable PROBLEMS Type Condition ICD9-CM Code [id number] Code Onset Dates Condition Status SNOMED Code Problem Diabetes 250.00 Active 36437169 Problem Hypertension, benign I10 Active 82948733 Problem Diabetes type 2, uncontrolled E11.65 Active 095934447 Problem Obstructive sleep apnea G47.33 Active 82370694 Problem 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 Active 72328768 Problem Polyneuropathy G62.9 Active 31369933 Problem Uncontrolled type 2 diabetes mellitus without complication, without long-term current use of insulin E11.65 Active 646243193 Problem Diabetes type 2, controlled E11.9 Active 73690841 Problem Fibromyalgia M79.7 Active 838086958 Problem Arthritis M19.90 Active 7386254 ALLERGIES No Information SOCIAL HISTORY Never Assessed [...]
--- OUTSIDE RECORDS SUMMARY | 2017-10-01 19:36 | XMS REPORT ---
Author Author KATHYA FISCHER Organization [employer] Address Unknown Phone Unavailable Care Team Providers Care Hepatologist Name Role Phone KATHYA FISCHER CP Unavailable Allergies No Known Allergies Problems Problem Type Condition Code Onset Dates Condition Status Assessment Encounter for immunization Z23 Active Problem Obstructive sleep apnea G47.33 Active Problem Pain in joint, lower leg 719.46 Active Problem Diabetes 250.00 Active Problem Unspecified venous (peripheral) insufficiency 459.81 Active Problem Edema 782.3 Active Problem Other and unspecified hyperlipidemia 272.4 Active Problem Unspecified hypertensive heart disease without heart failure 402.90 Active Medications No Known Medications Procedures Procedure Coding System Code Date SINGLE IMMUNIZATION ADMIN CPT-4 03653 May 04, 2015 FLUARIX QUAD (3 & UP)-GSK-2014 CPT-4 54290 May 04, 2015 Results No Known Results Immunizations Vaccine Administration Date FLUARIX QUAD (3 & UP)-GSK-2014May 04, 2015 Summary Purpose [employer] Submission
--- OUTSIDE RECORDS SUMMARY | 2017-10-01 19:36 | XMS REPORT ---
Author Author KATHYA FISCHER Organization [facility] [place] Address [address] [place] [address] Care Team Providers Care Financial Institution Manager Name Role Phone KATHYA FISCHER Unavailable PROBLEMS Type Condition ICD9-CM Code BYP13-TZ Code Onset Dates Condition Status SNOMED Code Problem Hypertension, benign I10 Active 36584428 Problem Obstructive sleep apnea G47.33 Active 38231900 Problem Controlled type 2 diabetes mellitus without complication, without long -term current use of insulin E11.9 Active 957727710 Problem 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 Active 07422791 Problem Arthritis M19.90 Active 8913084 Problem Uncontrolled type 2 diabetes mellitus without complication, without long-term current use of insulin E11.65 Active 579898923 Problem Polyneuropathy G62.9 Active 81088104 Problem Fibromyalgia M79.7 Active 323754740 ALLERGIES No Information ENCOUNTERS Encounter Location Date Diagnosis [facility] [place] [id number] [place] [address] 75637- 5751 Sep, [facility] [place] [id number] [place] [address] 33393- 9703 Sep, Uncontrolled type 2 diabetes mellitus without complication, without long-term current use of insulin E11.65 and Fibromyalgia M79.7 [facility] [place] [id number] [place] [address] 79855- 8691 August, [facility] [place] [id number] [place] [address] 67985- 6706 August, [facility] [place] [address] 40636- 8834 August, [facility] [place] [id number] [place] [address] 34331- 2843 August, Fibromyalgia M79.7 [facility] [place] [address] [place] [address]- 7887 Jul, Hypertension, benign I10 [facility] [place] [address] 35618- 3908 Jul, Fibromyalgia M79.7 [facility] [place] [id number] [place] [address] 70312- 2529 Jul, [facility] [place] [address] 73164- 5520 Jun, [facility] [place] [id number] [place] [address] 45301- 6115 Jun, Hypertension, benign I10 ; Arthritis M19.90 ; assisted current use 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 Z79.891 and Uncontrolled type 2 diabetes mellitus without complication, without long-term current use of insulin E11.65 [facility] [id number] [place] [address] 18334 -7405 Jun, Acute nasopharyngitis J00 and BMI 50.0-59.9, adult Z68.43 [facility] [place] [id number] [place] [address] 08276- 0248 Jun, Fibromyalgia M79.7 [facility] [place] [id number] [place] [address] 65310- 5562 May, [facility] [place] [id number] [place] [address] 85071- 4758 May, Fibromyalgia M79.7 [facility] [place] [id number] [place] [address] 39482- 5453 Apr, Fibromyalgia M79.7 [facility] [place] [id number] [place] [address] 76184- 8253 Apr, [facility] [place] [id number] [place] [address] 09315- 8081 Apr, [facility] [place] [id number] [place] [address] 77294- 7350 Apr, Arthritis M19.90 [facility] [place] [id number] [place] [address] 59978- 9517 Apr, Arthritis M19.90 [facility] [place] [address] 43048 2546 Apr, Arthritis M19.90 and Controlled type 2 diabetes mellitus without complication, without long-term current use of insulin E11.9 [facility] [place] [address] 00057 2546 Apr, [facility] [place] [address] 44878 2547 Apr, Fibromyalgia M79.7 [facility] [place] [address] 74743 2546 Mar, [facility] [place] [address] 26212- 0025 Mar, [facility] [place] [address] 33038- 7511 Mar, Fibromyalgia M79.7 [facility] [place] [address] 23950- 1097 Feb, [facility] [place] [address] 95105- 3520 Feb, [facility] [place] [id number] [place] [address] 08534- 9743 Feb, [facility] [place] [address] 29853 254 Feb, Fibromyalgia M79.7 [facility] [place] [id number] [place] [address] 85421 2540 Feb, Diabetes type 2, uncontrolled E11.65 and Encounter for immunization Z23 [facility] [place] [id number] [place] [address] 57061 2543 Jan, [facility] [place] [address] 85640- 2681 Jan, Fibromyalgia M79.7 [facility] [place] [address] [address]- 0806 Dec, [facility] [place] [id number] [place] [address] 60413- 7583 Dec, Fibromyalgia M79.7 [facility] [place] [id number] [place] [address] 93625- 2476 Nov, [facility] [place] [id number] [place] [address] 46239- 1738 Nov, [facility] [place] [id number] [place] [address] 19587- 5662 Nov, 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 and Polyneuropathy G62.9 [facility] [place] [id number] [place] [address] 02278- 8237 Nov, [facility] [place] [id number] [place] [address] 24442- 8880 Nov, [facility] [place] [id number] [place] [address] 44364- 4367 Oct, Diabetes type 2, uncontrolled E11.65 [facility] [place] [id number] [place] [address] 41761- 3993 Oct, Diabetes type 2, uncontrolled E11.65 ; Polyneuropathy G62.9 and Pain in right wrist M25.531 [facility] [place] [id number] [place] [address] 10426- 1951 Oct, [facility] [place] [id number] [place] [address] 43177- 0489 Oct, Pain in left shoulder M25.512 [facility] [place] [id number] [place] [address] 88008- 5414 Sep, [facility] [place] [address] [address]- 2124 Sep, Pain in left shoulder M25.512 [place] [address] [address] [address]- 2730 Sep, [facility] [place] [id number] [place] [address] 08959- 6179 August, Pain in left shoulder M25.512 [facility] [place] [address] [address]- 8228 Jul, [facility] [place] [id number] [place] [address] 38477- 5921 Jul, [facility] [place] [id number] [place] [address] 07594- 5375 Jul, Pain in left shoulder M25.512 [facility] [place] [id number] [place] [address] 78666- 1480 Jun, [facility] [place] [id number] [place] [address] 33057- 8138 Jun, [facility] [place] [id number] [place] [address] 15137- 8368 Jun, Diabetes type 2, uncontrolled E11.65 ; Fibromyalgia M79.7 and Arthritis M19.90 [facility] [place] [address] [address]- 3866 Jun, Pain in left shoulder M25.512 [facility] [place] [address] [address]- 8901 May, [facility] [place] [address] [address]- 8420 May, Diabetes type 2, controlled E11.9 [facility] [place] [address] [address]- 3324 May, [facility] [place] [address] [address]- 6695 May, Uncontrolled type 2 diabetes mellitus without complication, without long-term current use of insulin E11.65 [facility] [place] [id number] [address]- 1462 15 May, 2016 Pain in left shoulder M25.512 [facility] [place] [id number] [place] [address] 06036- 0745 03 May, 2016 Diabetes type 2, controlled E11.9 and Uncontrolled type 2 diabetes mellitus without complication, without long-term current use of insulin E11.65 [facility] [place] [id number] [place] [address] 29321- 2969 Apr, [facility] [place] [id number] [place] [address] 20247- 5091 Apr, [facility] [place] [id number] [place] [address] 08937- 4564 Mar, [facility] [place] [id number] [place] [address] 63804- 9606 Mar, [facility] [place] [id number] [place] [address] 36840- 1449 Mar, [facility] [place] [id number] [place] [address] 80542- 4804 Feb, [facility] [id number] [place] [address] [id number] Feb, Dental examination Z01.20 [facility] [place] [address] [address]- 4305 Jan, [facility] [place] [id number] [place] [address] 02546- 1463 14 Dec, 2015 [facility] [place] [address] [address]- 4579 Dec, [facility] [place] [id number] [place] [address] 40171- 7732 Dec, [facility] [place] [address] [address]- 8831 Dec, Diabetes type 2, controlled E11.9 [facility] [place] [id number] [place] [address]- 2875 Nov, [facility] [place] [address] [id number] [place] [address]- 6622 Nov, [facility] [place] [address] [facility] [id number] [place] [address]- 0712 Nov, [facility] [place] [address] [facility] [id number] [place] [address]- 3449 Nov, [facility] [place] [address] [facility] [id number] [place] [address]- 3064 Oct, [facility] [place] [address] [facility] [id number] [place] [address]- 1067 Oct, [facility] [place] [address] [facility] [id number] [place] [address]- 0915 Oct, [facility] [place] [address] [facility] [id number] [place] [address]- 9450 Sep, [facility] [place] [address] [facility] [id number] [place] [address]- 5241 Sep, Diabetes type 2, controlled E11.9 [facility] [place] [address] [facility] [id number] [place] [address]- 7147 Sep, Diabetes type 2, controlled E11.9 [facility] [place] [address] [facility] [id number] [place] [address]- 7817 August, [facility] [place] [address] [facility] [id number] [address]- 6508 August, [facility] [place] [address] [facility] [id number] [place] [address]- 0746 August, Type 2 diabetes mellitus without complication E11.9 and Pain in left shoulder M25.512 [facility] [place] [address] [facility] [id number] [place] [address]- 7374 Jul, [facility] [place] [address] [facility] [id number] [place] [address]- 1687 Jul, Diabetes type 2, controlled E11.9 and Hypertension, benign I10 [facility] [place] [address] [address]- 1379 Jun, [facility] [place] [id number] [place] [address] 96676- 7165 Jun, [facility] [place] [id number] [place] [address] 15333- 6866 Jun, Diabetes 250.00 [facility] [place] [id number] [place] [address] 20658- 0926 Jun, [facility] [place] [id number] [place] [address] 23350- 7651 May, Diabetes type 2, uncontrolled E11.65 [facility] [place] [id number] [place] [address] 42091- 1742 May, [facility] [place] [id number] [place] [address] 23195- 6795 Apr, Type 2 diabetes mellitus without complication E11.9 [facility] [place] [address] [address]- 6640 Apr, Encounter for immunization Z23 [facility] [place] [id number] [place] [address] 17735- 7420 Apr, [facility] [place] [address] [address]- 2271 Mar, [facility] [place] [address] [address]- 9646 Mar, [facility] [place] [address] [address]- 2610 Mar, [facility] [place] [address] [address]- 0477 Feb, [facility] [place] [address] [address]- 2277 Jan, [facility] [place] [id number] [address]- 5757 Jan, [facility] [place] [address]- 5556 Jan, [facility] [place] [address] 6486 Dec, Diabetes 250.00 and COPD (chronic obstructive pulmonary disease) 496 [facility] [place] [address] [address]- 5928 Dec, [facility] [place] [address]- 7275 Dec, [facility] [place] [address]- 1259 Nov, [facility] [place] [address] [address]- 1634 Oct, Diabetes 250.00 [facility] [place] [address] [address]- 5704 Sep, [facility] [place] [address] [address]- 2774 Sep, [facility] [place] [address] [address]- 2662 Sep, [facility] [place] [address]- 5552 Sep, Diabetes 250.00 [facility] [place] [id number] [address]- 9248 Sep, [facility] [place] [address]- 0276 Sep, [facility] [place] [address] 6232 August, Hypertension, essential, benign 401.1 ; Coronary atherosclerosis of [place] coronary artery 414.01 and Diabetic neuropathy associated with type 2 diabetes mellitus 250.60 [facility] [place] [address] [place] [address]- 6876 29 Jul, 2014 [facility] [place] [facility] [address] [id number] [place] [address]- 0326 14 Jul, 2014 [facility] [place] [facility] [address] [id number] [place] [address]- 6428 13 Jul, 2014 [facility] [place] [facility] [address] [id number] [place] [address]- 5174 26 Jun, 2014 [facility] [place] [facility] [address] [id number] [place] [address]- 7760 Jun, [facility] [place] [facility] [address] [id number] [place] [address]- 2536 23 Jun, 2014 [facility] [place] [facility] [address] [facility] [id number] [place] [address]- 4427 Jun, [facility] [place] [facility] [address] [facility] [id number] [place] [address]- 1886 Jun, [facility] [place] [facility] [address] [facility] [id number] [place] [address]- 6614 May, [facility] [place] [facility] [address] [facility] [id number] [place] [address]- 9077 May, [facility] [place] [facility] [address] [facility] [id number] [place] [address]- 6003 May, 2014 [facility] [place] [facility] [address] [facility] [id number] [place] [address]- 9500 May, 2014 [facility] [place] [facility] [address] [facility] [id number] [place] [address]- 1229 May, 2014 [facility] [place] [facility] [address] [id number] [place] [address]- 0409 May, 2014 [facility] [place] [facility] [address] [facility] [id number] [place] 6819 May, 2014 [facility] [place] [facility] [address] [facility] [id number] [place] [address]- 3023 Apr, [facility] [place] [facility] [address] [id number] [place] 4846 Apr, [facility] [place] [facility] [address] [id number] [place] [address]- 4334 Apr, [facility] [place] [facility] [address] [facility] [id number] [place] 4590 Apr, [facility] [place] [facility] [address] [id number] [place] [address]- 5141 Mar, [facility] [place] [facility] [address] [id number] [place] [address]- 6370 Mar, [facility] [place] [facility] [address] [id number] [place] [address]- 7228 Mar, [facility] [place] [facility] [address] [id number] [place] [address]- 1077 Mar, [facility] [place] [facility] [address] [id number] [address]- 2512 Feb, [facility] [place] [facility] [address] [id number] [place] [address]- 1323 Feb, [facility] [place] [facility] [address] [id number] [place] [address] Feb, [facility] [place] [facility] [address] [id number] [place] [address] Feb, [facility] [place] [facility] [address] [id number] [place] [address] Feb, [facility] [place] [facility] [address] [id number] [place] [address] Feb, [facility] [place] [facility] [address] [id number] [place] [address] Feb, [facility] [place] [facility] [address] [id number] [place] [address] Jan, [facility] [place] [facility] [address] [id number] [place] [address] Jan, [facility] [place] [facility] [address] [id number] [place] [address] Dec, 2013 [facility] [place] [facility] [address] [id number] [place] [address] Dec, 2013 [facility] [place] [facility] [address] [id number] [place] [address] Dec, 2013 [facility] [place] [facility] [address] [id number] [place] [address] Dec, 2013 [facility] [place] [facility] [address] [id number] [place] [address] Dec, [facility] [place] [facility] [address] [id number] [place] [address] Dec, [facility] [place] [facility] [address] [id number] [place] [address] Dec, [facility] [place] [facility] [address] [id number] [place] [address] Dec, [facility] [place] [facility] [address] [id number] [place] [address] Nov, [facility] [place] [facility] [address] [id number] [place] [address] Nov, [facility] [place] [facility] [address] [id number] [place] [address] Nov, [facility] [place] [facility] [address] [id number] [place] [address] Nov, [facility] [place] [facility] [address] [id number] [place] [address] Oct, [facility] [place] [facility] [address] [id number] [place] [address] Oct, [facility] [place] [facility] [address] [id number] [place] [address] Oct, [facility] [place] [facility] [address] [id number] [place] [address] Oct, [facility] [place] [facility] [address] [id number] [place] [address] Oct, [facility] [place] [facility] [address] [id number] [place] [address] Oct, [facility] [place] [facility] [address] [id number] [place] [address]98 Oct, [facility] [place] [facility] [address] [id number] [place] [address] Oct, [facility] [place] [facility] [address] [id number] [place] [address] Sep, [facility] [place] [facility] [address] [id number] [place] [address] Sep, [facility] [place] [facility] [address] [id number] [place] [address] August, [facility] [place] [facility] [address] [id number] [place] [address] August, [facility] [place] [facility] [address] [id number] [place] [address] Jul, [facility] [place] [facility] [address] [id number] [place] [address] Jul, [facility] [place] [facility] [address] [id number] [place] [address] Jul, [facility] [place] [facility] [address] [id number] [place] [address] Jul, [facility] [place] [facility] [address] [id number] [place] [address] Jul, [facility] [place] [facility] [address] [id number] [place] [address] 25[address] Jul, [facility] [place] [facility] [address] [id number] [place] [address] Jul, [facility] [address] [id number] [place] [address] Jul, [facility] [place] [facility] [address] [id number] [place] [address] Jun, [facility] [place] [facility] [address] [facility] [id number] [place] [address]- [address] Jun, [facility] [place] [facility] [address] [id number] [place] [address]- [address] Jun, [facility] [place] [facility] [address] [id number] [place] [address] Jun, [facility] [place] [facility] [address] [facility] [id number] [place] [address] 18 May, 2013 [facility] [place] [facility] [address] [facility] [id number] [place] [address] May, [facility] [place] [facility] [address] [facility] [id number] [place] [address] Apr, [facility] [place] [facility] [address] [facility] [id number] [place] [address] Apr, [facility] [place] [facility] [address] [facility] [id number] [place] [address]- [address] Mar, [facility] [place] [facility] [address] [facility] [id number] [place] [address] Mar, [facility] [place] [facility] [address] [facility] [id number] [place] [address] Mar, [facility] [place] [facility] [address] [id number] [place] [address] 18 Mar, 2013 [facility] [place] [facility] [address] [facility] [id number] [place] [address] 18 Mar, 2013 [facility] [place] [facility] [address] [facility] [id number] [place] [address] Mar, [facility] [place] [facility] [address] [id number] [place] [address] Feb, [facility] [place] [facility] [address] [id number] [place] [address] 64[address] Feb, [facility] [place] [facility] [address] [id number] [place] [address] 9[address] Feb, [facility] [place] [facility] [address] [id number] [place] [address] Feb, [facility] [place] [facility] [address] [id number] [place] [address] Feb, [facility] [place] [facility] [address] [id number] [place] [address] Feb, [facility] [place] [facility] [address] [id number] [place] [address] Feb, [facility] [place] [facility] [address] [id number] [place] [address] Feb, [facility] [place] [facility] [address] [id number] [place] [address] 117[address] 15 Jan, 2013 [facility] [place] [facility] [address] [id number] [place] [address] 15 Jan, 2013 [facility] [place] [facility] [address] [id number] [place] [address] 14 Jan, 2013 [facility] [place] [facility] [address] [id number] [place] [address] 14 Jan, 2013 [facility] [place] [facility] [address] [id number] [place] [address] 9869 18 Dec, 2012 [facility] [place] [facility] [address] [id number] [place] [address] 8[address] 13 Dec, 2012 [facility] [place] [facility] [address] [id number] [place] [address] 74[address] 2012 [facility] [place] [facility] [address] [id number] [place] [address] Nov, [facility] [address] [id number] [place] [address]70 Nov, [facility] [place] [facility] [address] [id number] [place] [address] 39[address] Oct, [facility] [place] [facility] [address] [id number] [place] [address] 1198 Oct, [facility] [place] [facility] [address] [id number] [place] [address] 65[address] Oct, [facility] [place] [facility] [address] [id number] [place] [address] 1997 Sep, [facility] [place] [facility] [address] [id number] [place] [address] Sep, [facility] [place] [facility] [address] [id number] [place] [address] 9[address] Sep, [facility] [place] [facility] [address] [id number] [place] [address] 6280 Sep, [facility] [place] [facility] [address] [id number] [place] [address] 9[address] Sep, [facility] [place] [facility] [address] [id number] [place] [address] 9236 Sep, [facility] [place] [facility] [address] [id number] [place] [address] 9544 August, [facility] [place] [facility] [address] [id number] [place] [address] 29[address] August, [facility] [place] [facility] [address] [id number] [place] [address] 8987 August, [facility] [place] [facility] [address] [id number] [place] [address] 4980 August, [facility] [place] [facility] [address] [id number] [place] [address] 0679 August, [facility] [place] [facility] [address] [id number] [place] [address] 07[address] August, [facility] [address] [id number] [place] [address] August, [facility] [address] [id number] [place] [address] 9703 Jul, [facility] [address] [id number] [place] [address] 6[address] Jul, [facility] [address] [id number] [place] [address] 357[address] Jun, [facility] [address] [id number] [place] [address] 1226 Jun, [facility] [address] [id number] [place] [address] 6313 May, [facility] [address] [id number] [place] [address]676 May, [facility] [address] [id number] [place] [address] 4[address] Apr, [facility] [address] [id number] [place] [address] 1074 Mar, [facility] [address] [id number] [place] [address] 3208 Mar, [facility] [address] [id number] [place] [address] 2546 Mar, [facility] [address] [id number] [place] [address] 4170 Mar, [facility] [address] [id number] [place] [address] 4621 Mar, [facility] [address] [id number] [place] [address] 48[address] Mar, [facility] [address] [id number] [place] [address] 6201 Feb, [facility] [place] [facility] [address] [id number] [place] [address] 388[address] Feb, [facility] [place] [facility] [address] [id number] [place] [address] 4706 Feb, [facility] [place] [facility] [address] [id number] [place] [address] 9001 Feb, [facility] [place] [facility] [address] [id number] [place] [address]- 2465 Feb, [facility] [place] [facility] [address] [id number] [place] [address] 6469 Feb, [facility] [place] [facility] [address] [id number] [place] [address]- 9776 Feb, [facility] [place] [facility] [address] [facility] [id number] [place] [address] 0382 Feb, [facility] [place] [facility] [address] [id number] [place] [address] 0241 Jan, [facility] [place] [facility] [address] [id number] [place] [address] 9014 Jan, [facility] [place] [facility] [address] [id number] [place] [address] 9[address] 28 Dec, 2011 [facility] [place] [facility] [address] [id number] [place] [address] 0444 19 Dec, 2011 [facility] [place] [facility] [address] [id number] [place] [address] 4971 18 Dec, 2011 [facility] [place] [facility] [address] [id number] [place] [address] 8513 18 Dec, 2011 [facility] [place] [facility] [address] [id number] [place] [address]88 04 Dec, 2011 [facility] [place] [facility] [address] [facility] [id number] [place] [address] Nov, [facility] [place] [facility] [address] [id number] [place] [address] 99[address] Oct, [facility] [place] [facility] [address] [id number] [place] [address] 3224 Oct, [facility] [place] [facility] [address] [id number] [place] [address]- 9403 Sep, [facility] [place] [facility] [address] [id number] [place] [address]- 9755 Sep, [facility] [place] [facility] [address] [id number] [place] [address]- 1669 Sep, [facility] [place] [facility] [address] [id number] [place] [address]- 3903 Sep, [facility] [place] [facility] [address] [id number] [place] [address]- 3020 Sep, [facility] [place] [facility] [address] [id number] [place] [address]- 9008 Sep, [facility] [place] [facility] [address] [id number] [place] [address]- 4642 Sep, [facility] [place] [facility] [address] [id number] [place] [address]- 3208 Sep, [facility] [place] [facility] [address] [id number] [place] [address]- 4525 August, [facility] [place] [facility] [address] [id number] [place] [address]- 7603 August, [facility] [place] [facility] [address] [id number] [place] [address]- 8226 August, [facility] [place] [facility] [address] [id number] [place] [address]- 1779 Jul, [facility] [place] [facility] [address] [id number] [place] [address]- 8660 Jul, [facility] [place] [facility] [address] [id number] [place] [address]- 9835 Jun, [facility] [place] [facility] [address] [id number] [place] [address]- 8601 Jun, [facility] [address] [id number] [place] [address]- 3984 Jun, [facility] [place] [facility] [address] [id number] [place] [address]- 1266 Jun, [facility] [place] [facility] [address] [id number] [place] [address]- 4317 May, [facility] [place] [facility] [address] [id number] [place] [address]- 2959 May, [facility] [place] [facility] [address] [id number] [place] [address]- 1703 Apr, [facility] [place] [facility] [address] [id number] [place] [address]- 7366 Apr, [facility] [place] [facility] [address] [id number] [place] [address]- 4397 Apr, [facility] [address] [id number] [place] [address]- 6765 Mar, [facility] [place] [facility] [address] [id number] [place] [address]- 0332 Mar, [facility] [place] [facility] [address] [id number] [place] [address]- 6947 Mar, [facility] [place] [facility] [address] [id number] [place] [address]- 9381 Feb, [facility] [place] [facility] [address] [id number] [place] [address]- 4138 Feb, [facility] [place] [facility] [address] [id number] [place] [address]- 0491 Feb, [facility] [place] [facility] [address] [id number] [place] [address]- 5405 Feb, [facility] [place] [facility] [address] [id number] [place] [address]- 4637 25 Jan, 2011 [facility] [place] [facility] [address] [id number] [place] [address]- 0216 14 Jan, 2011 [facility] [place] [facility] [address] [id number] [place] [address]- 0650 12 Jan, 2011 [facility] [place] [facility] [address] [facility] [id number] [place] [address]- 0624 16 Dec, 2010 [facility] [place] [facility] [address] [id number] [place] [address]- 6237 13 Oct, 2010 [facility] [place] [facility] [address] [id number] [place] [address]- 4634 24 Mar, 2010 [facility] [place] [facility] [address] [id number] [place] [address]- 3275 Feb, [facility] [place] [facility] [address] [facility] [id number] [place] [address]- 0926 Feb, [facility] [place] [facility] [address] [id number] [place] [address]- 0694 16 May, 2009 [facility] [place] [facility] [address] [id number] [place] [address]- 1200 Apr, [facility] [place] [facility] [address] [facility] [id number] [place] [address]- 2084 29 Mar, 2009 [facility] [place] [facility] [address] [facility] [id number] [place] [address]- 2641 30 Jan, 2009 [facility] [place] [facility] [address] [id number] [place] [address]- 8776 15 Oct, 2008 [facility] [place] [facility] [address] [id number] [place] [address]- 9260 16 Jul, 2008 [facility] [place] [facility] [address] [facility] [id number] [place] [address]- 1541 04 Mar, 2008 [facility] [place] [facility] [address] [facility] [id number] [place] [address]- 5780 Feb, [facility] [place] [facility] [address] [facility] [id number] [place] [address]- 9067 Jan, IMMUNIZATIONS No Known Immunizations SOCIAL HISTORY Never Assessed REASON FOR VISIT Controlled Med Refill 04/08/17 PLAN OF CARE VITAL SIGNS MEDICATIONS Medication [...]
--- OUTSIDE RECORDS SUMMARY | 2017-10-01 19:37 | XMS REPORT ---
Author Author KATHYA FISCHER Organization [facility] Address [address] [place] [address] Care Team Providers Care Architecture Technician Name Role Phone AMADOKATHYA Unavailable PROBLEMS Type Condition ICD9-CM Code [id number] Code Onset Dates Condition Status SNOMED Code Problem Diabetes 250.00 Active 13392963 Problem Hypertension, benign I10 Active 83800992 Problem Diabetes type 2, uncontrolled E11.65 Active 687452795 Problem Obstructive sleep apnea G47.33 Active 57975862 Problem 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 Active 56912878 Problem Polyneuropathy G62.9 Active 90532482 Problem Uncontrolled type 2 diabetes mellitus without complication, without long-term current use of insulin E11.65 Active 130368225 Problem Diabetes type 2, controlled E11.9 Active 42262894 Problem Fibromyalgia M79.7 Active 176246783 Problem Arthritis M19.90 Active 9658160 ALLERGIES No Information SOCIAL HISTORY Never Assessed PLAN OF CARE VITAL SIGNS MEDICATIONS Medication Instructions Dosage Frequency Start Date End Date Duration Status Duloxetine HCl 60 MG TAKE ONE CAPSULE BY MOUTH TWICE DAILY 30 Active Bydureon 2 MG Subcutaneous once weekly Inject May, Active Lyrica 200 mg Orally Three times a day 1 capsule 8h 28 days Active Cymbalta 30 MG TAKE ONE CAPSULE BY MOUTH DAILY ALONG WITH DULOXETINE 60 MG 30 Active RESULTS No Results PROCEDURES No Known [...]
--- OUTSIDE RECORDS SUMMARY | 2017-10-01 19:37 | XMS REPORT ---
Author Author KATHYA FISCHER Organization [employer] Address Unknown Phone Unavailable Care Team Providers Care Steak Tenderizer Machine Name Role Phone KATHYA FISCHER CP Unavailable [...]
--- OUTSIDE RECORDS SUMMARY | 2017-10-01 19:37 | XMS REPORT ---
Author Author KATHYA FISCHER Organization [facility] Address [address] [place] [address] Care Team Providers Care Commercial Lines Account Executive Name Role Phone KATHYA FISCHER Unavailable PROBLEMS Type Condition ICD9-CM Code [id number] Code Onset Dates Condition Status SNOMED Code Problem Diabetes 250.00 Active 55503174 Problem Hypertension, benign I10 Active 51242992 Problem Diabetes type 2, uncontrolled E11.65 Active 665735000 Problem Obstructive sleep apnea G47.33 Active 66255447 Problem 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 Active 02286193 Problem Polyneuropathy G62.9 Active 88367414 Problem Uncontrolled type 2 diabetes mellitus without complication, without long-term current use of insulin E11.65 Active 075567928 Problem Diabetes type 2, controlled E11.9 Active 29010965 Problem Fibromyalgia M79.7 Active 706270783 Problem Arthritis M19.90 Active 6035870 ALLERGIES No Information SOCIAL HISTORY Never Assessed PLAN OF CARE VITAL SIGNS MEDICATIONS Medication Instructions Dosage Frequency Start Date End Date Duration Status Lyrica 200 MG Orally Three times a day 1 capsule 8h 23 days Active Tramadol HCl 50 MG Orally every [...]
--- OUTSIDE RECORDS SUMMARY | 2017-10-01 19:37 | XMS REPORT ---
Author Author KATHYA FISCHER Organization [employer] Address Unknown Phone Unavailable Care Team Providers Care Reticle Printer Name Role Phone KATHYA FISCHER CP Unavailable [...] Start Date End Date Status Dosage Lyrica [facility] [id number] 200 MG TAKE ONE CAPSULE BY MOUTH THREE TIMES DAILY Results No Known Results Summary Purpose [employer] Submission
--- OUTSIDE RECORDS SUMMARY | 2017-10-01 19:37 | XMS REPORT ---
Author KATHYA Samuel Organization [employer] Address Unknown Phone Unavailable Care Team Providers Care Riveter Pneumatic Name Role Phone KATHYA FISCHER CP Unavailable [...] Instructions Start Date End Date Status Dosage Glucometer [facility] 0 TRUE METRIX E11.65 November 16, 2015 as directed Lancets [facility] [id number] - TRUE METRIX E11.65 November 16, 2015 as directed True Metrix Blood Glucose Test [facility] [id number] - E11.65 November 16, 2015 once a day Results No Known Results Summary Purpose [employer] Submission
--- OUTSIDE RECORDS SUMMARY | 2017-10-01 19:37 | XMS REPORT ---
Author Author KATHYA FISCHER [facility] Address [address] [place] [address] Care Team Providers Care Lopper Name Role Phone KATHYA FISCHER Unavailable PROBLEMS Type Condition ICD9-CM Code CCO54-KH Code Onset Dates Condition Status SNOMED Code Problem Diabetes 250.00 Active 63963771 Problem Hypertension, benign I10 Active 17301710 Problem Diabetes type 2, uncontrolled E11.65 Active 821934861 Problem Obstructive sleep apnea G47.33 Active 87643046 Problem 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 Active 78623184 Problem Polyneuropathy G62.9 Active 65041733 Problem Uncontrolled type 2 diabetes mellitus without complication, without long-term current use of insulin E11.65 Active 189372987 Problem Diabetes type 2, controlled E11.9 Active 79567870 Problem Fibromyalgia M79.7 Active 177918283 Problem Arthritis M19.90 Active 1189637 ALLERGIES Substance Reaction Event Type Date Status Cozaar Unknown Drug Allergy May, Active Androgel Unknown Drug Allergy May, Active rhubarb Unknown Non Drug Allergy May, Active raspberry Unknown Non Drug Allergy May, Active equal Unknown Non Drug Allergy May, Active sweet and low Unknown Non Drug Allergy May, Active horseradish Unknown Non Drug Allergy May, Active SulfADIAZINE Unknown Drug Allergy May, Active chromates Unknown Non Drug Allergy May, Active Lasix Unknown Drug Allergy May, Active latex rash Non Drug Allergy May, Active Cyclobenzaprine Hcl Oral Tablet 10 10 Mg Tablet dc'd potential for ss Non Drug Allergy May, Active Zinc Unknown Drug Allergy May, Active SOCIAL HISTORY No smoking Hx information available PLAN OF CARE VITAL SIGNS Height 71 in 2016-05-23 Weight 388.4 lbs 2016-05-23 Temperature 97.2 degrees Fahrenheit 2016-05-23 Heart Rate 96 bpm 2016-05-23 Respiratory Rate 22 2016-05-23 BMI 54.16 kg/m2 2016-05-23 Blood pressure systolic 130 mmHg 2016-05-23 Blood pressure diastolic 72 mmHg 2016-05-23 MEDICATIONS Medication Instructions Dosage Frequency Start Date End Date Duration Status Tramadol HCl 50 mg Orally every 8 hrs prn TWO TABLETS 28 days Active Tylenol 500 MG/15ML Active Glucometer as directed Oct, Active Furosemide 20 mg Orally Once a day 2 tablet in the AM and 1 tablet in PM 24h Active True Metrix Blood Glucose Test - once a day Oct, Active Atorvastatin Calcium 40 MG Orally Once a day 1 tablet 24h Active Cyclobenzaprine HCl 10 MG Orally Three times a day 1 tablet 8h Active Hydrochlorothiazide 25 MG Orally Once a day 1 tablet 24h 90 Active potassium 1 tab Active Tamsulosin HCl 0.4 MG Orally Once a day 1 capsule 30 minutes after the same meal each day 24h Active Lyrica 200 mg Orally Three times a day 1 capsule 8h 28 days Active Duloxetine HCl 60 MG TAKE ONE CAPSULE BY MOUTH TWICE DAILY 30 Active Vitamin B Complex Active Vitamin D 2000 UNIT Active Symbicort 160-4.5 MCG/ACT Inhalation Twice a day 2 puff 12h Feb, Active Bydureon 2 MG as directed May, Active Cymbalta 30 MG TAKE ONE CAPSULE BY MOUTH DAILY ALONG WITH DULOXETINE 60 MG 30 Active Blood Glucose Test 1 1 test Jul, Active Viagra 100 MG Orally Once a day 1 tablet as needed 24h Active Aspirin 325 MG Orally Once a day 1 tablet 24h Active ProAir HFA 108 (90 Base) MCG/ACT Inhalation every 4 hrs 2 puffs as needed 4h Active Amitriptyline HCl 100 MG TAKE ONE TABLET BY MOUTH ONCE DAILY 90 Active Silvadene 1 % Externally Once a day 1 application to affected area 24h Nov, Active Fish Oil 1200 MG Orally Once a day 4 capsule 24h Active GlipiZIDE 5 MG Orally Once a day 1 tablet 24h 90 Active lidocaine topical 5 %(700 mg/patch) 3 PATCH by Topical route 1 time per day apply on bilateral wrist and left ankle Jan, Active Metoprolol Tartrate 100 MG TAKE ONE TABLET BY MOUTH TWICE DAILY 90 Active Lancets - as directed Oct, Active RESULTS Name Result Date Reference Range A1C (IN HOUSE) 2016-05-23 A1C IN HOUSE 10.1 4.3 - 5.6 % Previous A1c 8.8 Lot [id number] Exp date 02/2018 PROCEDURES Procedure Date Ordered Related Diagnosis Body Site GLYCATED HEMOGLOBIN TEST May 23, 2016 Office Visit, Est Pt., Level 3 May 23, 2016 IMMUNIZATIONS No Known Immunizations
--- OUTSIDE RECORDS SUMMARY | 2017-10-01 19:41 | XMS REPORT | Continuity of Care Document ---
Author Author [facility] Address Unknown Phone Unavailable Allergies Active Description Code Type Severity Reaction Onset Reported/Identified Relationship to Patient Clinical Status Yes Cozaar Drug Allergy N/A N/A 05/29/2008 Yes Cozaar Drug Allergy 05/29/2008 Yes sulfa drug Drug Allergy 05/29/2008 Yes lasix OA N/A N/A 06/13/2009 Yes lasix OA 06/13/2009 Yes ARTIFICIAL SWEETNERS ARTIFICIAL SWEETNERS Unknown N/A 03/21/2014 Yes latex [id number] Drug Allergy Unknown N/A 03/21/2014 Yes raspberry [id number] Drug Allergy Unknown N/A 03/21/2014 Yes Sulfa (Sulfonamide Antibiotics) [id number] Drug Allergy Unknown N/A 2013 Yes zinc oxide [id number] Drug Allergy Unknown N/A 03/21/2014 Medications There is no data. Problems Date Dx Coded Attending Type Code Diagnosis Diagnosed By 03/19/1334 DIRK AMEZCUA, ROHIT Ot E11.9 TYPE 2 DIABETES MELLITUS WITHOUT COMPLIC 03/19/1334 DIRK AMEZCUA, ROHIT Ot E66.2 MORBID (SEVERE) OBESITY WITH ALVEOLAR HY 03/19/1334 ROHTI CAVAZOS MD Ot E78.5 HYPERLIPIDEMIA, UNSPECIFIED 03/19/1334 DIRK AMEZCUA, ROHIT Ot E87.5 HYPERKALEMIA 03/19/1334 DIRK AMEZCUA, ROHIT Ot G47.33 OBSTRUCTIVE SLEEP APNEA (ADULT) (PEDIATR 03/19/1334 DIRK AMEZCUA, ROHIT Ot I12.9 HYPERTENSIVE CHRONIC KIDNEY DISEASE W ST 03/19/1334 DIRK AMEZCUA, ROHIT Ot M19.90 UNSPECIFIED OSTEOARTHRITIS, UNSPECIFIED 03/19/1334 DIRK AMEZCUA, ROHIT Ot M79.7 FIBROMYALGIA 03/19/1334 ABOUL-MAGROHIT Toro MD, Ot N18.2 CHRONIC KIDNEY DISEASE, STAGE 2 (MILD) 03/19/1334 ROHIT CAVAZOS MD, Ot R60.0 LOCALIZED EDEMA 03/19/1334 ROHIT CAVAZOS MD, Ot Z86.59 PERSONAL HISTORY OF OTHER MENTAL AND BEH 03/19/1599 ALFONSO ESTRADA MD, Ot E11.622 TYPE 2 DIABETES MELLITUS WITH OTHER SKIN 03/19/1599 ALFONSO ESTRADA MD, Ot E66.01 MORBID (SEVERE) OBESITY DUE TO EXCESS CA 03/19/1599 ALFONSO ESTRADA MD, Ot I87.333 CHRONIC VENOUS HTN W ULCER AND INFLAM OF 03/19/1599 ALFONSO ESTRADA MD, Ot I89.0 LYMPHEDEMA, NOT ELSEWHERE CLASSIFIED 03/19/1599 ALFONSO ESTRADA MD, Ot L97.211 NON-PRS CHRONIC ULCER OF RIGHT CALF LIMI 03/19/1599 ALFONSO ESTRADA MD, Ot L97.222 NON-PRESSURE CHRONIC ULCER OF LEFT CALF 03/19/1599 ALFONSO ESTRADA MD, Ot R58 HEMORRHAGE, NOT ELSEWHERE CLASSIFIED 03/19/1599 ALFONSO ESTRADA MD, Ot Z68.43 BODY MASS INDEX (BMI) 50-59.9 , ADULT 01/06/2008 KATHYA FISCHER APRN 401.1 ESSENTIAL HYPERTENSION BENIGN 01/06/2008 KATHYA FISCHER APRN 401.1 ESSENTIAL HYPERTENSION BENIGN 01/06/2008 DAKOTA TEJADA DO 401.1 ESSENTIAL HYPERTENSION BENIGN 01/06/2008 401.1 ESSENTIAL HYPERTENSION BENIGN 01/06/2008 401.1 ESSENTIAL HYPERTENSION BENIGN 01/06/2008 401.1 ESSENTIAL HYPERTENSION BENIGN 01/06/2008 401.1 ESSENTIAL HYPERTENSION BENIGN 01/06/2008 401.1 ESSENTIAL HYPERTENSION BENIGN 01/06/2008 401.1 ESSENTIAL HYPERTENSION BENIGN 01/06/2008 401.1 ESSENTIAL HYPERTENSION BENIGN 01/06/2008 401.1 ESSENTIAL HYPERTENSION BENIGN 01/06/2008 401.1 ESSENTIAL HYPERTENSION BENIGN 01/06/2008 401.1 ESSENTIAL HYPERTENSION BENIGN 01/06/2008 401.1 ESSENTIAL HYPERTENSION BENIGN 01/06/2008 DAKOTA TEJADA DO 401.1 ESSENTIAL HYPERTENSION BENIGN 01/06/2008 KATHYA FISCHER APRN 401.1 ESSENTIAL HYPERTENSION BENIGN 01/06/2008 DAKOTA TEJADA DO 401.1 ESSENTIAL HYPERTENSION BENIGN 01/06/2008 AMADO RETOUCHER, KATHYA T 401.1 ESSENTIAL HYPERTENSION BENIGN 01/06/2008 AMADO RETOUCHER, KATHYA T 401.1 ESSENTIAL HYPERTENSION BENIGN 01/06/2008 AMADO RETOUCHER, KATHYA T 401.1 ESSENTIAL HYPERTENSION BENIGN 01/06/2008 AMADO PHILIP, KATHYA T 401.1 ESSENTIAL HYPERTENSION BENIGN 01/06/2008 ÁNGEL SPIVEY MD 401.1 ESSENTIAL HYPERTENSION BENIGN 01/06/2008 DAKOTA TEJADA DO 401.1 ESSENTIAL HYPERTENSION BENIGN 01/06/2008 KATHYA FISCHER APRN T 401.1 ESSENTIAL HYPERTENSION BENIGN 01/06/2008 AMADO RETOUCHERKATHYA T 401.1 ESSENTIAL HYPERTENSION BENIGN 01/06/2008 AMADO RETOUCHER, KATHYA T 401.1 ESSENTIAL HYPERTENSION BENIGN 01/06/2008 AMADO RETOUCHER, KATHYA T 401.1 ESSENTIAL HYPERTENSION BENIGN 01/06/2008 AMADO RETOUCHER, KATHYA T 401.1 ESSENTIAL HYPERTENSION BENIGN 01/06/2008 AMADO RETOUCHER, KATHYA T 401.1 ESSENTIAL HYPERTENSION BENIGN 01/06/2008 AMADO RETOUCHER, KATHYA T 401.1 ESSENTIAL HYPERTENSION BENIGN 01/06/2008 KATHYA FISCHER APRN T 401.1 ESSENTIAL HYPERTENSION BENIGN 03/15/2008 KATHYA FISCHER APRN 682.9 CELLULITIS AND ABSCESS OF UNSPECIFIED SITES 03/15/2008 KATHYA FISCHER APRN T 682.9 CELLULITIS AND ABSCESS OF UNSPECIFIED SITES 03/15/2008 DAKOTA TEJADA DO 682.9 CELLULITIS AND ABSCESS OF UNSPECIFIED SITES 03/15/2008 682.9 CELLULITIS AND ABSCESS OF UNSPECIFIED SITES 03/15/2008 682.9 CELLULITIS AND ABSCESS OF UNSPECIFIED SITES 03/15/2008 682.9 CELLULITIS AND ABSCESS OF UNSPECIFIED SITES 03/15/2008 682.9 CELLULITIS AND ABSCESS OF UNSPECIFIED SITES 03/15/2008 682.9 CELLULITIS AND ABSCESS OF UNSPECIFIED SITES 03/15/2008 682.9 CELLULITIS AND ABSCESS OF UNSPECIFIED SITES 03/15/2008 682.9 CELLULITIS AND ABSCESS OF UNSPECIFIED SITES 03/15/2008 682.9 CELLULITIS AND ABSCESS OF UNSPECIFIED SITES 03/15/2008 682.9 CELLULITIS AND ABSCESS OF UNSPECIFIED SITES 03/15/2008 682.9 CELLULITIS AND ABSCESS OF UNSPECIFIED SITES 03/15/2008 682.9 CELLULITIS AND ABSCESS OF UNSPECIFIED SITES 03/15/2008 DAKOTA TEJADA DO 682.9 CELLULITIS AND ABSCESS OF UNSPECIFIED SITES 03/15/2008 KATHYA FISCHER APRN 682.9 CELLULITIS AND ABSCESS OF UNSPECIFIED SITES 03/15/2008 DAKOTA TEJADA DO 682.9 CELLULITIS AND ABSCESS OF UNSPECIFIED SITES 03/15/2008 KATHYA FISCHER APRN 682.9 CELLULITIS AND ABSCESS OF UNSPECIFIED SITES 03/15/2008 KATHYA FISCHER APRN 682.9 CELLULITIS AND ABSCESS OF UNSPECIFIED SITES 03/15/2008 KATHYA FISCHER APRN 682.9 CELLULITIS AND ABSCESS OF UNSPECIFIED SITES 03/15/2008 KATHYA FISCHER APRN 682.9 CELLULITIS AND ABSCESS OF UNSPECIFIED SITES 03/15/2008 PATRIC AMEZCUA, ÁNGEL 682.9 CELLULITIS AND ABSCESS OF UNSPECIFIED SITES 03/15/2008 DAKOTA TEJADA DO 682.9 CELLULITIS AND ABSCESS OF UNSPECIFIED SITES 03/15/2008 KATHYA FISCHER APRN 682.9 CELLULITIS AND ABSCESS OF UNSPECIFIED SITES 03/15/2008 KATHYA FISCHER APRN 682.9 CELLULITIS AND ABSCESS OF UNSPECIFIED SITES 03/15/2008 KATHYA FISCHER APRN 682.9 CELLULITIS AND ABSCESS OF UNSPECIFIED SITES 03/15/2008 KATHYA FISCHER APRN T 682.9 CELLULITIS AND ABSCESS OF UNSPECIFIED SITES 03/15/2008 KATHYA FISCHER APRN 682.9 CELLULITIS AND ABSCESS OF UNSPECIFIED SITES 03/15/2008 KATHYA FISCHER APRN 682.9 CELLULITIS AND ABSCESS OF UNSPECIFIED SITES 03/15/2008 KATHYA FISCHER APRN 682.9 CELLULITIS AND ABSCESS OF UNSPECIFIED SITES 03/15/2008 KATHYA FISCHER APRN 682.9 CELLULITIS AND ABSCESS OF UNSPECIFIED SITES 03/23/2008 KATHYA FISCHER APRN 780.57 UNSPECIFIED SLEEP APNEA 03/23/2008 KATHYA FISCHER APRN 780.57 UNSPECIFIED SLEEP APNEA 03/23/2008 DAKOTA TEJADA DO 780.57 UNSPECIFIED SLEEP APNEA 03/23/2008 780.57 UNSPECIFIED SLEEP APNEA 03/23/2008 780.57 UNSPECIFIED SLEEP APNEA 03/23/2008 780.57 UNSPECIFIED SLEEP APNEA 03/23/2008 780.57 UNSPECIFIED SLEEP APNEA 03/23/2008 780.57 UNSPECIFIED SLEEP APNEA 03/23/2008 780.57 UNSPECIFIED SLEEP APNEA 03/23/2008 780.57 UNSPECIFIED SLEEP APNEA 03/23/2008 780.57 UNSPECIFIED SLEEP APNEA 03/23/2008 780.57 UNSPECIFIED SLEEP APNEA 03/23/2008 780.57 UNSPECIFIED SLEEP APNEA 03/23/2008 780.57 UNSPECIFIED SLEEP APNEA 03/23/2008 DAKOTA TEJADA DO 780.57 UNSPECIFIED SLEEP APNEA 03/23/2008 KATHYA FISCHER APRN T 780.57 UNSPECIFIED SLEEP APNEA 03/23/2008 DAKOTA TEJADA DO 780.57 UNSPECIFIED SLEEP APNEA 03/23/2008 KATHYA FISCHER APRN T 780.57 UNSPECIFIED SLEEP APNEA 03/23/2008 KATHYA FISCHER APRN T 780.57 UNSPECIFIED SLEEP APNEA 03/23/2008 KATHYA FISCHER APRN T 780.57 UNSPECIFIED SLEEP APNEA 03/23/2008 KATHYA FISCHER APRN T 780.57 UNSPECIFIED SLEEP APNEA 03/23/2008 ÁNGEL SPIVEY MD 780.57 UNSPECIFIED SLEEP APNEA 03/23/2008 DAKOTA TEJADA DO 780.57 UNSPECIFIED SLEEP APNEA 03/23/2008 KATHYA FISCHER APRN T 780.57 UNSPECIFIED SLEEP APNEA 03/23/2008 AMADO PHILIP KATHYA T 780.57 UNSPECIFIED SLEEP APNEA 03/23/2008 AMADO PHILIP KATHYA T 780.57 UNSPECIFIED SLEEP APNEA 03/23/2008 AMADO PHILIP KATHYA T 780.57 UNSPECIFIED SLEEP APNEA 03/23/2008 AMADO PHILIP KATHYA T 780.57 UNSPECIFIED SLEEP APNEA 03/23/2008 AMADO PHILIP KATHYA T 780.57 UNSPECIFIED SLEEP APNEA 03/23/2008 KATHYA FISCHER APRN T 780.57 UNSPECIFIED SLEEP APNEA 03/23/2008 AMADO PHILIP KATHYA T 780.57 UNSPECIFIED SLEEP APNEA 04/27/2008 KATHYA FISCHER APRN T 327.23 SLEEP APNEA (ADULT) (PEDIATRIC) 04/27/2008 KATHYA FISCHER APRN T 327.23 SLEEP APNEA (ADULT) (PEDIATRIC) 04/27/2008 DAKOTA TEJADA DO 327.23 SLEEP APNEA (ADULT) (PEDIATRIC) 04/27/2008 327.23 SLEEP APNEA ( ADULT) (PEDIATRIC) 04/27/2008 327.23 SLEEP APNEA ( ADULT) (PEDIATRIC) 04/27/2008 327.23 SLEEP APNEA ( ADULT) (PEDIATRIC) 04/27/2008 327.23 SLEEP APNEA ( ADULT) (PEDIATRIC) 04/27/2008 327.23 SLEEP APNEA ( ADULT) (PEDIATRIC) 04/27/2008 327.23 SLEEP APNEA ( ADULT) (PEDIATRIC) 04/27/2008 327.23 SLEEP APNEA ( ADULT) (PEDIATRIC) 04/27/2008 327.23 SLEEP APNEA ( ADULT) (PEDIATRIC) 04/27/2008 327.23 SLEEP APNEA ( ADULT) (PEDIATRIC) 04/27/2008 327.23 SLEEP APNEA ( ADULT) (PEDIATRIC) 04/27/2008 327.23 SLEEP APNEA ( ADULT) (PEDIATRIC) 04/27/2008 DAKOTA TEJADA DO 327.23 SLEEP APNEA (ADULT) (PEDIATRIC) 04/27/2008 AMADO RETOUCHER, KATHYA T 327.23 SLEEP APNEA (ADULT) (PEDIATRIC) 04/27/2008 DAKOTA TEJADA DO K 327.23 SLEEP APNEA (ADULT) (PEDIATRIC) 04/27/2008 AMADO RETOUCHER, KATHYA T 327.23 SLEEP APNEA (ADULT) (PEDIATRIC) 04/27/2008 AMADO RETOUCHER, KATHYA T 327.23 SLEEP APNEA (ADULT) (PEDIATRIC) 04/27/2008 AMADO RAHMANN, KATHYA T 327.23 SLEEP APNEA (ADULT) (PEDIATRIC) 04/27/2008 AMADO RETOUCHER, KATHYA T 327.23 SLEEP APNEA (ADULT) (PEDIATRIC) 04/27/2008 ÁNGEL SPIVEY MD 327.23 SLEEP APNEA (ADULT) (PEDIATRIC) 04/27/2008 DAKOTA TEJADA DO 327.23 SLEEP APNEA (ADULT) (PEDIATRIC) 04/27/2008 AMADO RETOUCHER, KATHYA T 327.23 SLEEP APNEA (ADULT) (PEDIATRIC) 04/27/2008 AMADO RETOUCHER, KATHYA T 327.23 SLEEP APNEA (ADULT) (PEDIATRIC) 04/27/2008 AMADO RETOUCHER, KATHYA T 327.23 SLEEP APNEA (ADULT) (PEDIATRIC) 04/27/2008 AMADO RETOUCHER, KATHYA T 327.23 SLEEP APNEA (ADULT) (PEDIATRIC) 04/27/2008 AMADO RETOUCHER, KATHYA T 327.23 SLEEP APNEA (ADULT) (PEDIATRIC) 04/27/2008 AMADO RETOUCHER, KATHYA T 327.23 SLEEP APNEA (ADULT) (PEDIATRIC) 04/27/2008 AMADO RETOUCHER, KATHYA T 327.23 SLEEP APNEA (ADULT) (PEDIATRIC) 04/27/2008 AMADO RAHMANN, KATHYA T 327.23 SLEEP APNEA (ADULT) (PEDIATRIC) 05/29/2008 KATHYA FISCHER APRN T 338.4 PAIN CHRONIC SYNDROME 05/29/2008 KATHYA FISCHER APRN 401.9 HYPERTENSION, UNSPECIFIED ESSENTIAL 05/29/2008 KATHYA FISCHER APRN T 338.4 PAIN CHRONIC SYNDROME 05/29/2008 KATHYA FISCHER APRN T 401.9 HYPERTENSION, UNSPECIFIED ESSENTIAL 05/29/2008 TEJADA DO, DAKOTA K 338.4 PAIN CHRONIC SYNDROME 05/29/2008 TEJADA DO, DAKOTA K 401.9 HYPERTENSION, UNSPECIFIED ESSENTIAL 05/29/2008 338.4 PAIN CHRONIC SYNDROME 05/29/2008 401.9 HYPERTENSION, UNSPECIFIED ESSENTIAL 05/29/2008 338.4 PAIN CHRONIC SYNDROME 05/29/2008 401.9 HYPERTENSION, UNSPECIFIED ESSENTIAL 05/29/2008 338.4 PAIN CHRONIC SYNDROME 05/29/2008 401.9 HYPERTENSION, UNSPECIFIED ESSENTIAL 05/29/2008 338.4 PAIN CHRONIC SYNDROME 05/29/2008 401.9 HYPERTENSION, UNSPECIFIED ESSENTIAL 05/29/2008 338.4 PAIN CHRONIC SYNDROME 05/29/2008 401.9 HYPERTENSION, UNSPECIFIED ESSENTIAL 05/29/2008 338.4 PAIN CHRONIC SYNDROME 05/29/2008 401.9 HYPERTENSION, UNSPECIFIED ESSENTIAL 05/29/2008 338.4 PAIN CHRONIC SYNDROME 05/29/2008 401.9 HYPERTENSION, UNSPECIFIED ESSENTIAL 05/29/2008 338.4 PAIN CHRONIC SYNDROME 05/29/2008 401.9 HYPERTENSION, UNSPECIFIED ESSENTIAL 05/29/2008 338.4 PAIN CHRONIC SYNDROME 05/29/2008 401.9 HYPERTENSION, UNSPECIFIED ESSENTIAL 05/29/2008 338.4 PAIN CHRONIC SYNDROME 05/29/2008 401.9 HYPERTENSION, UNSPECIFIED ESSENTIAL 05/29/2008 338.4 PAIN CHRONIC SYNDROME 05/29/2008 401.9 HYPERTENSION, UNSPECIFIED ESSENTIAL 05/29/2008 TEJADA DO, DAKOTA K 338.4 PAIN CHRONIC SYNDROME 05/29/2008 TEJADA DO, DAKOTA K 401.9 HYPERTENSION, UNSPECIFIED ESSENTIAL 05/29/2008 KATHYA FISCHER APRN T 338.4 PAIN CHRONIC SYNDROME 05/29/2008 KATHYA FISCHER APRN 401.9 HYPERTENSION, UNSPECIFIED ESSENTIAL 05/29/2008 TEJADA DO, DAKOTA K 338.4 PAIN CHRONIC SYNDROME 05/29/2008 TEJADA DO, DAKOTA K 401.9 HYPERTENSION, UNSPECIFIED ESSENTIAL 05/29/2008 KATHYA FISCHER APRN T 338.4 PAIN CHRONIC SYNDROME 05/29/2008 KATHYA FISCHER APRN 401.9 HYPERTENSION, UNSPECIFIED ESSENTIAL 05/29/2008 KATHYA FISCHER APRN T 338.4 PAIN CHRONIC SYNDROME 05/29/2008 AMADO PHILIP, KATHYA T 401.9 HYPERTENSION, UNSPECIFIED ESSENTIAL 05/29/2008 AMADO RAHMANN, KATHYA T 338.4 PAIN CHRONIC SYNDROME 05/29/2008 AMADO PHILIP, KATHYA T 401.9 HYPERTENSION, UNSPECIFIED ESSENTIAL 05/29/2008 KATHYA FISCHER APRN T 338.4 PAIN CHRONIC SYNDROME 05/29/2008 KATHYA FISCHER APRN T 401.9 HYPERTENSION, UNSPECIFIED ESSENTIAL 05/29/2008 ÁNGEL SPIVEY MD 338.4 PAIN CHRONIC SYNDROME 05/29/2008 ÁNGEL SPIVEY MD 401.9 HYPERTENSION, UNSPECIFIED ESSENTIAL 05/29/2008 TEJADA DO, DAKOTA K 338.4 PAIN CHRONIC SYNDROME 05/29/2008 TEJADA DO, DAKOTA K 401.9 HYPERTENSION, UNSPECIFIED ESSENTIAL 05/29/2008 KATHYA FISCHER APRN T 338.4 PAIN CHRONIC SYNDROME 05/29/2008 KATHYA FISCHER APRN T 401.9 HYPERTENSION, UNSPECIFIED ESSENTIAL 05/29/2008 KATHYA FISCHER APRN T 338.4 PAIN CHRONIC SYNDROME 05/29/2008 KATHYA FISCHER APRN T 401.9 HYPERTENSION, UNSPECIFIED ESSENTIAL 05/29/2008 KATHYA FISCHER APRN T 338.4 PAIN CHRONIC SYNDROME 05/29/2008 AMADO PHILIP KATHYA T 401.9 HYPERTENSION, UNSPECIFIED ESSENTIAL 05/29/2008 AMADO PHILIP KATHYA T 338.4 PAIN CHRONIC SYNDROME 05/29/2008 AMADO PHILIP KATHYA T 401.9 HYPERTENSION, UNSPECIFIED ESSENTIAL 05/29/2008 KATHYA FISCHER APRN T 338.4 PAIN CHRONIC SYNDROME 05/29/2008 KATHYA FISCHER APRN T 401.9 HYPERTENSION, UNSPECIFIED ESSENTIAL 05/29/2008 AMADO PHILIP KATHYA T 338.4 PAIN CHRONIC SYNDROME 05/29/2008 KATHYA FISCHER APRN T 401.9 HYPERTENSION, UNSPECIFIED ESSENTIAL 05/29/2008 KATHYA FISCHER APRN T 338.4 PAIN CHRONIC SYNDROME 05/29/2008 KATHYA FISCHER APRN T 401.9 HYPERTENSION, UNSPECIFIED ESSENTIAL 05/29/2008 AMADO PHILIP KATHYA T 338.4 PAIN CHRONIC SYNDROME 05/29/2008 KATHYA FISCHER APRN T 401.9 HYPERTENSION, UNSPECIFIED ESSENTIAL 08/03/2008 KATHYA FISCHER APRN T 466.0 BRONCHITIS, ACUTE 08/03/2008 KATHYA FISCHER APRN T 466.0 BRONCHITIS, ACUTE 08/03/2008 TEJADA DO DAKOTA K 466.0 BRONCHITIS, ACUTE 08/03/2008 466.0 BRONCHITIS, ACUTE 08/03/2008 466.0 BRONCHITIS, ACUTE 08/03/2008 466.0 BRONCHITIS, ACUTE 08/03/2008 466.0 BRONCHITIS, ACUTE 08/03/2008 466.0 BRONCHITIS, ACUTE 08/03/2008 466.0 BRONCHITIS, ACUTE 08/03/2008 466.0 BRONCHITIS, ACUTE 08/03/2008 466.0 BRONCHITIS, ACUTE 08/03/2008 466.0 BRONCHITIS, ACUTE 08/03/2008 466.0 BRONCHITIS, ACUTE 08/03/2008 466.0 BRONCHITIS, ACUTE 08/03/2008 TEJADA DO DAKOTA K 466.0 BRONCHITIS, ACUTE 08/03/2008 AMADO PHILIP KATHYA T 466.0 BRONCHITIS, ACUTE 08/03/2008 TEJADA DO DAKOTA K 466.0 BRONCHITIS, ACUTE 08/03/2008 KATHYA FISCHER APRN T 466.0 BRONCHITIS, ACUTE 08/03/2008 KATHYA FISCHER APRN T 466.0 BRONCHITIS, ACUTE 08/03/2008 KATHYA FISCHER APRN T 466.0 BRONCHITIS, ACUTE 08/03/2008 KATHYA FISCHER APRN T 466.0 BRONCHITIS, ACUTE 08/03/2008 ÁNGEL SPIVEY MD 466.0 BRONCHITIS, ACUTE 08/03/2008 JULI TEJADA DOA K 466.0 BRONCHITIS, ACUTE 08/03/2008 AMADO PHILIP KATHYA T 466.0 BRONCHITIS, ACUTE 08/03/2008 AMADO RETOUCHER, KATHYA T 466.0 BRONCHITIS, ACUTE 08/03/2008 AMADO PHILIP KATHYA T 466.0 BRONCHITIS, ACUTE 08/03/2008 KATHYA FISCHER APRN T 466.0 BRONCHITIS, ACUTE 08/03/2008 AMADO PHILIP KATHYA T 466.0 BRONCHITIS, ACUTE 08/03/2008 KATHYA FISCHER APRN T 466.0 BRONCHITIS, ACUTE 08/03/2008 AMADO PHILIP KATHYA T 466.0 BRONCHITIS, ACUTE 08/03/2008 KATHYA FISCHER APRN T 466.0 BRONCHITIS, ACUTE 06/05/2009 KATHYA FISCHER APRN T 268.9 VITAMIN D DEFICIENCY 06/05/2009 KATHYA FISCHER APRN T 268.9 VITAMIN D DEFICIENCY 06/05/2009 DAKOTA TEJADA DO K 268.9 VITAMIN D DEFICIENCY 06/05/2009 268.9 VITAMIN D DEFICIENCY 06/05/2009 268.9 VITAMIN D DEFICIENCY 06/05/2009 268.9 VITAMIN D DEFICIENCY 06/05/2009 268.9 VITAMIN D DEFICIENCY 06/05/2009 268.9 VITAMIN D DEFICIENCY 06/05/2009 268.9 VITAMIN D DEFICIENCY 06/05/2009 268.9 VITAMIN D DEFICIENCY 06/05/2009 268.9 VITAMIN D DEFICIENCY 06/05/2009 268.9 VITAMIN D DEFICIENCY 06/05/2009 268.9 VITAMIN D DEFICIENCY 06/05/2009 268.9 VITAMIN D DEFICIENCY 06/05/2009 TEJADA DO DAKOTA K 268.9 VITAMIN D DEFICIENCY 06/05/2009 KATHYA FISCHER APRN T 268.9 VITAMIN D DEFICIENCY 06/05/2009 TEJADA DO DAKOTA K 268.9 VITAMIN D DEFICIENCY 06/05/2009 KATHYA FISCHER APRN T 268.9 VITAMIN D DEFICIENCY 06/05/2009 KATHYA FISCHER APRN T 268.9 VITAMIN D DEFICIENCY 06/05/2009 KATHYA FISCHER APRN T 268.9 VITAMIN D DEFICIENCY 06/05/2009 KATHYA FISCHER APRN T 268.9 VITAMIN D DEFICIENCY 06/05/2009 ÁNGEL SPIVEY MD 268.9 VITAMIN D DEFICIENCY 06/05/2009 JULI TEJADA DOA K 268.9 VITAMIN D DEFICIENCY 06/05/2009 KATHYA FISCHER APRN T 268.9 VITAMIN D DEFICIENCY 06/05/2009 KATHYA FISCHER APRN T 268.9 VITAMIN D DEFICIENCY 06/05/2009 KATHYA FISCHER APRN T 268.9 VITAMIN D DEFICIENCY 06/05/2009 KATHYA FISCHER APRN T 268.9 VITAMIN D DEFICIENCY 06/05/2009 KATHYA FISCHER APRN T 268.9 VITAMIN D DEFICIENCY 06/05/2009 KATHYA FISCHER APRN T 268.9 VITAMIN D DEFICIENCY 06/05/2009 KATHYA FISCHER APRN T 268.9 VITAMIN D DEFICIENCY 06/05/2009 KATHYA FISCHER APRN T 268.9 VITAMIN D DEFICIENCY 07/10/2009 KATHYA FISCHER APRN T 250.00 DIABETES MELLITUS 07/10/2009 KATHYA FISCHER APRN T 250.00 DIABETES MELLITUS 07/10/2009 DAKOTA TEJADA DO K 250.00 DIABETES MELLITUS 07/10/2009 250.00 DIABETES MELLITUS 07/10/2009 250.00 DIABETES MELLITUS 07/10/2009 250.00 DIABETES MELLITUS 07/10/2009 250.00 DIABETES MELLITUS 07/10/2009 250.00 DIABETES MELLITUS 07/10/2009 250.00 DIABETES MELLITUS 07/10/2009 250.00 DIABETES MELLITUS 07/10/2009 250.60 DIABETES W/ NEUROPATHY; DM TYPE 2 07/10/2009 250.00 DIABETES MELLITUS 07/10/2009 250.60 DIABETES W/ NEUROPATHY; DM TYPE 2 07/10/2009 250.00 DIABETES MELLITUS 07/10/2009 250.60 DIABETES W/ NEUROPATHY; DM TYPE 2 07/10/2009 250.00 DIABETES MELLITUS 07/10/2009 250.60 DIABETES W/ NEUROPATHY; DM TYPE 2 07/10/2009 250.00 DIABETES MELLITUS 07/10/2009 250.60 DIABETES W/ NEUROPATHY; DM TYPE 2 07/10/2009 TEJADA DO, DAKOTA K 250.00 DIABETES MELLITUS 07/10/2009 TEJADA DO, DAKOTA K 250.60 DIABETES W/ NEUROPATHY; DM TYPE 2 07/10/2009 AMADO PHILIP KATHYA T 250.00 DIABETES MELLITUS 07/10/2009 AMADO PHILIP KATHYA T 250.60 DIABETES W/ NEUROPATHY; DM TYPE 2 07/10/2009 TEJADA DO, DAKOTA K 250.00 DIABETES MELLITUS 07/10/2009 TEJADA DO, DAKOTA K 250.60 DIABETES W/ NEUROPATHY; DM TYPE 2 07/10/2009 AMADO PHILIP KATHYA T 250.00 DIABETES MELLITUS 07/10/2009 AMADO PHILIP KATHYA T 250.60 DIABETES W/ NEUROPATHY; DM TYPE 2 07/10/2009 AMADO PHILIP, KATHYA T 250.00 DIABETES MELLITUS 07/10/2009 AMADO PHILIP KATHYA T 250.60 DIABETES W/ NEUROPATHY; DM TYPE 2 07/10/2009 AMADO PHILIP, KATHYA T 250.00 DIABETES MELLITUS 07/10/2009 AMADO PHILIP KATHYA T 250.60 DIABETES W/ NEUROPATHY; DM TYPE 2 07/10/2009 AMADO PHILIP KATHYA T 250.00 DIABETES MELLITUS 07/10/2009 AMADO PHILIP KATHYA T 250.60 DIABETES W/ NEUROPATHY; DM TYPE 2 07/10/2009 ÁNGEL SPIVEY MD 250.00 DIABETES MELLITUS 07/10/2009 ÁNGEL SPIVEY MD 250.60 DIABETES W/ NEUROPATHY; DM TYPE 2 07/10/2009 TEJADA DO, DAKOTA K 250.00 DIABETES MELLITUS 07/10/2009 TEJADA DO, DAKOTA K 250.60 DIABETES W/ NEUROPATHY; DM TYPE 2 07/10/2009 AMADO PHILIP KATHYA T 250.00 DIABETES MELLITUS 07/10/2009 AMADO PHILIP KATHYA T 250.60 DIABETES W/ NEUROPATHY; DM TYPE 2 07/10/2009 AMADO RETOUCHER, KATHYA T 250.00 DIABETES MELLITUS 07/10/2009 AMADO RETOUCHER, KATHYA T 250.60 DIABETES W/ NEUROPATHY; DM TYPE 2 07/10/2009 AMADO RETOUCHER, KATHYA T 250.00 DIABETES MELLITUS 07/10/2009 AMADO RETOUCHER, KATHYA T 250.60 DIABETES W/ NEUROPATHY; DM TYPE 2 07/10/2009 AMADO RETOUCHER, KATHYA T 250.00 DIABETES MELLITUS 07/10/2009 AMADO RETOUCHER, KATHYA T 250.60 DIABETES W/ NEUROPATHY; DM TYPE 2 07/10/2009 AMADO RETOUCHER, KATHYA T 250.00 DIABETES MELLITUS 07/10/2009 AMADO RETOUCHER, KATHYA T 250.60 DIABETES W/ NEUROPATHY; DM TYPE 2 07/10/2009 AMADO RETOUCHER, KATHYA T 250.00 DIABETES MELLITUS 07/10/2009 AMADO RETOUCHER, KATHYA T 250.60 DIABETES W/ NEUROPATHY; DM TYPE 2 07/10/2009 AMADO RETOUCHER, KATHYA T 250.00 DIABETES MELLITUS 07/10/2009 AMADO RETOUCHER, KATHYA T 250.60 DIABETES W/ NEUROPATHY; DM TYPE 2 07/10/2009 AMADO RETOUCHER, KATHYA T 250.00 DIABETES MELLITUS 07/10/2009 AMADO RETOUCHER, KATHYA T 250.60 DIABETES W/ NEUROPATHY; DM TYPE 2 07/24/2009 KATHYA FISCHER APRN T 270.7 HYPERGLYCEMIA 07/24/2009 KATHYA FISCHER APRN T 270.7 HYPERGLYCEMIA 07/24/2009 DAKOTA TEJADA DO K 270.7 HYPERGLYCEMIA 07/24/2009 270.7 HYPERGLYCEMIA 07/24/2009 270.7 HYPERGLYCEMIA 07/24/2009 270.7 HYPERGLYCEMIA 07/24/2009 270.7 HYPERGLYCEMIA 07/24/2009 270.7 HYPERGLYCEMIA 07/24/2009 270.7 HYPERGLYCEMIA 07/24/2009 270.7 HYPERGLYCEMIA 07/24/2009 270.7 HYPERGLYCEMIA 07/24/2009 270.7 HYPERGLYCEMIA 07/24/2009 270.7 HYPERGLYCEMIA 07/24/2009 270.7 HYPERGLYCEMIA 07/24/2009 JULI TEJADA DOA K 270.7 HYPERGLYCEMIA 07/24/2009 KATHYA FISCHER APRN T 270.7 HYPERGLYCEMIA 07/24/2009 TEJADA JULI CHRISTINEA K 270.7 HYPERGLYCEMIA 07/24/2009 KATHYA FISCHER APRN T 270.7 HYPERGLYCEMIA 07/24/2009 KATHYA FISCHER APRN T 270.7 HYPERGLYCEMIA 07/24/2009 KATHYA FISCHER APRN T 270.7 HYPERGLYCEMIA 07/24/2009 KATHYA FISCHER APRN T 270.7 HYPERGLYCEMIA 07/24/2009 ÁNGEL SPIVEY MD 270.7 HYPERGLYCEMIA 07/24/2009 DAKOTA TEJADA DO 270.7 HYPERGLYCEMIA 07/24/2009 KATHYA FISCHER APRN T 270.7 HYPERGLYCEMIA 07/24/2009 KATHYA FISCHER APRN T 270.7 HYPERGLYCEMIA 07/24/2009 KATHYA FISCHER APRN T 270.7 HYPERGLYCEMIA 07/24/2009 KATHYA FISCHER APRN T 270.7 HYPERGLYCEMIA 07/24/2009 KATHYA FISCHER APRN T 270.7 HYPERGLYCEMIA 07/24/2009 KATHYA FISCHER APRN T 270.7 HYPERGLYCEMIA 07/24/2009 KATHYA FISCHER APRN T 270.7 HYPERGLYCEMIA 07/24/2009 KATHYA FISCHER APRN T 270.7 HYPERGLYCEMIA 09/19/2009 KATHYA FISCHER APRN T 307.40 INSOMNIA 09/19/2009 KATHYA FISCHER APRN 701.9 SKIN TAG 09/19/2009 KATHYA FISCHER APRN T 307.40 INSOMNIA 09/19/2009 KATHYA IFSCHER APRN 701.9 SKIN TAG 09/19/2009 DAKOTA TEJADA DO K 307.40 INSOMNIA 09/19/2009 DAKOTA TEJADA DO K 701.9 SKIN TAG 09/19/2009 307.40 INSOMNIA 09/19/2009 701.9 SKIN TAG 09/19/2009 307.40 INSOMNIA 09/19/2009 701.9 SKIN TAG 09/19/2009 307.40 INSOMNIA 09/19/2009 701.9 SKIN TAG 09/19/2009 307.40 INSOMNIA 09/19/2009 701.9 SKIN TAG 09/19/2009 307.40 INSOMNIA 09/19/2009 701.9 SKIN TAG 09/19/2009 307.40 INSOMNIA 09/19/2009 701.9 SKIN TAG 09/19/2009 307.40 INSOMNIA 09/19/2009 701.9 SKIN TAG 09/19/2009 307.40 INSOMNIA 09/19/2009 701.9 SKIN TAG 09/19/2009 307.40 INSOMNIA 09/19/2009 701.9 SKIN TAG 09/19/2009 307.40 INSOMNIA 09/19/2009 701.9 SKIN TAG 09/19/2009 307.40 INSOMNIA 09/19/2009 701.9 SKIN TAG 09/19/2009 DAKOTA TEJADA DO K 307.40 INSOMNIA 09/19/2009 TEJADA DO, DAKOTA K 701.9 SKIN TAG 09/19/2009 AMADO RAHMANN KATHYA T 307.40 INSOMNIA 09/19/2009 AMADO RETOUCHER, KATHYA T 701.9 SKIN TAG 09/19/2009 TEJADA DO, DAKOTA K 307.40 INSOMNIA 09/19/2009 TEJADA DO, DAKOTA K 701.9 SKIN TAG 09/19/2009 KATHYA FISCHER APRN T 307.40 INSOMNIA 09/19/2009 AMADO RAHMANNKATHYA T 701.9 SKIN TAG 09/19/2009 AMADO RETOUCHER KATHYA T 307.40 INSOMNIA 09/19/2009 KATHYA FISCHER APRN T 701.9 SKIN TAG 09/19/2009 AMADO PHILIP KATHYA T 307.40 INSOMNIA 09/19/2009 KATHYA FISCHER APRN T 701.9 SKIN TAG 09/19/2009 AMADO PHILIP KATHYA T 307.40 INSOMNIA 09/19/2009 KATHYA FISCHER APRN T 701.9 SKIN TAG 09/19/2009 ÁNGEL SPIVEY MD 307.40 INSOMNIA 09/19/2009 ÁNGEL SPIVEY MD 701.9 SKIN TAG 09/19/2009 TEJADA DO, DAKOTA K 307.40 INSOMNIA 09/19/2009 TEJADA DO, DAKOTA K 701.9 SKIN TAG 09/19/2009 KATHYA FISCHER APRN T 307.40 INSOMNIA 09/19/2009 KATHYA FISCHER APRN T 701.9 SKIN TAG 09/19/2009 KATHYA FISCHER APRN T 307.40 INSOMNIA 09/19/2009 KATHYA FISCHER APRN T 701.9 SKIN TAG 09/19/2009 KATHYA FISCHER APRN T 307.40 INSOMNIA 09/19/2009 KATHYA FISCHER APRN T 701.9 SKIN TAG 09/19/2009 AMADO RAHMANN KATHYA T 307.40 INSOMNIA 09/19/2009 AMADO RETOUCHER, KATHYA T 701.9 SKIN TAG 09/19/2009 AMADO PHILIP KATHYA T 307.40 INSOMNIA 09/19/2009 AMADO PHILIP KATHYA T 701.9 SKIN TAG 09/19/2009 AMADO RETOUCHER, KATHYA T 307.40 INSOMNIA 09/19/2009 KATHYA FISCHER APRN T 701.9 SKIN TAG 09/19/2009 KATHYA FISCHER APRN T 307.40 INSOMNIA 09/19/2009 AMADO PHILIP KATHYA T 701.9 SKIN TAG 09/19/2009 KATHYA FISCHER APRN T 307.40 INSOMNIA 09/19/2009 KATHYA FISCHER APRN T 701.9 SKIN TAG 10/17/2009 KATHYA FISCHER APRN T 724.2 PAIN LOW BACK 10/17/2009 KATHYA FISCHER APRN T 729.5 PAIN IN LIMB 10/17/2009 KATHYA FISCHER APRN T 724.2 PAIN LOW BACK 10/17/2009 KATHYA FISCHER APRN T 729.5 PAIN IN LIMB 10/17/2009 TEJADA DO DAKOTA K 724.2 PAIN LOW BACK 10/17/2009 TEJADA DO, DAKOTA K 729.5 PAIN IN LIMB 10/17/2009 724.2 PAIN LOW BACK 10/17/2009 729.5 PAIN IN LIMB 10/17/2009 724.2 PAIN LOW BACK 10/17/2009 729.5 PAIN IN LIMB 10/17/2009 724.2 PAIN LOW BACK 10/17/2009 729.5 PAIN IN LIMB 10/17/2009 724.2 PAIN LOW BACK 10/17/2009 729.5 PAIN IN LIMB 10/17/2009 724.2 PAIN LOW BACK 10/17/2009 729.5 PAIN IN LIMB 10/17/2009 724.2 PAIN LOW BACK 10/17/2009 729.5 PAIN IN LIMB 10/17/2009 724.2 PAIN LOW BACK 10/17/2009 729.5 PAIN IN LIMB 10/17/2009 724.2 PAIN LOW BACK 10/17/2009 729.5 PAIN IN LIMB 10/17/2009 724.2 PAIN LOW BACK 10/17/2009 729.5 PAIN IN LIMB 10/17/2009 724.2 PAIN LOW BACK 10/17/2009 729.5 PAIN IN LIMB 10/17/2009 724.2 PAIN LOW BACK 10/17/2009 729.5 PAIN IN LIMB 10/17/2009 TEJADA DO, DAKOTA K 724.2 PAIN LOW BACK 10/17/2009 TEJADA DO, DAKOTA K 729.5 PAIN IN LIMB 10/17/2009 KATHYA FISCHER APRN T 724.2 PAIN LOW BACK 10/17/2009 KATHYA FISCHER APRN T 729.5 PAIN IN LIMB 10/17/2009 TEJADA DO, DAKOTA K 724.2 PAIN LOW BACK 10/17/2009 TEJADA DO, DAKOTA K 729.5 PAIN IN LIMB 10/17/2009 KATHYA FISCHER APRN T 724.2 PAIN LOW BACK 10/17/2009 KATHYA FISCHER APRN T 729.5 PAIN IN LIMB 10/17/2009 KATHYA FISCHER APRN T 724.2 PAIN LOW BACK 10/17/2009 KATHYA FISCHER APRN T 729.5 PAIN IN LIMB 10/17/2009 KATHYA FISCHER APRN T 724.2 PAIN LOW BACK 10/17/2009 KATHYA FISCHER APRN T 729.5 PAIN IN LIMB 10/17/2009 KATHYA FISCHER APRN T 724.2 PAIN LOW BACK 10/17/2009 KATHYA FISCHER APRN T 729.5 PAIN IN LIMB 10/17/2009 ÁNGEL SPIVEY MD 724.2 PAIN LOW BACK 10/17/2009 ÁNGEL SPIVEY MD 729.5 PAIN IN LIMB 10/17/2009 TEJADA DO, DAKOTA K 724.2 PAIN LOW BACK 10/17/2009 TEJADA DO, DAKOTA K 729.5 PAIN IN LIMB 10/17/2009 KATHYA FISCHER APRN T 724.2 PAIN LOW BACK 10/17/2009 KATHYA FISCHER APRN T 729.5 PAIN IN LIMB 10/17/2009 KATHYA FISCHER APRN T 724.2 PAIN LOW BACK 10/17/2009 KATHYA FISCHER APRN T 729.5 PAIN IN LIMB 10/17/2009 KATHYA FISCHER APRN T 724.2 PAIN LOW BACK 10/17/2009 KATHYA FISCHER APRN T 729.5 PAIN IN LIMB 10/17/2009 KATHYA FISCHER APRN T 724.2 PAIN LOW BACK 10/17/2009 KATHYA FISCHER APRN T 729.5 PAIN IN LIMB 10/17/2009 KATHYA FISCHER APRN T 724.2 PAIN LOW BACK 10/17/2009 KATHYA FISCHER APRN T 729.5 PAIN IN LIMB 10/17/2009 KATHYA FISCHER APRN T 724.2 PAIN LOW BACK 10/17/2009 KATHYA FISCHER APRN T 729.5 PAIN IN LIMB 10/17/2009 KATHYA FISCHER APRN T 724.2 PAIN LOW BACK 10/17/2009 KATHYA FISCHER APRN T 729.5 PAIN IN LIMB 10/17/2009 KATHYA FISCHER APRN T 724.2 PAIN LOW BACK 10/17/2009 KATHYA FISCHER APRN 729.5 PAIN IN LIMB 03/04/2010 KATHYA FISCHER APRN T 414.01 CAD 03/04/2010 KATHYA FISCHER APRN T 414.01 CAD 03/04/2010 TEJADA DO, DAKOTA K 414.01 CAD 03/04/2010 414.01 CAD 03/04/2010 414.01 CAD 03/04/2010 414.01 CAD 03/04/2010 414.01 CAD 03/04/2010 414.01 CAD 03/04/2010 414.01 CAD 03/04/2010 414.01 CAD 03/04/2010 414.01 CAD 03/04/2010 414.01 CAD 03/04/2010 414.01 CAD 03/04/2010 414.01 CAD 03/04/2010 TEJADA DO DAKOTA K 414.01 CAD 03/04/2010 KATHYA FISCHER APRN T 414.01 CAD 03/04/2010 TEJADA DO, DAKOTA K 414.01 CAD 03/04/2010 KATHYA FISCHER APRN T 414.01 CAD 03/04/2010 KATHYA FISCHER APRN T 414.01 CAD 03/04/2010 KATHYA FISCHER APRN T 414.01 CAD 03/04/2010 KATHYA FISCHER APRN T 414.01 CAD 03/04/2010 ÁNGEL SPIVEY MD 414.01 CAD 03/04/2010 TERRELL CHRISTINE DAKOTA K 414.01 CAD 03/04/2010 KATHYA FISCHER APRN T 414.01 CAD 03/04/2010 KATHYA FISCHER APRN T 414.01 CAD 03/04/2010 KATHYA FISCHER APRN T 414.01 CAD 03/04/2010 KATHYA FISCHER APRN T 414.01 CAD 03/04/2010 KATHYA FISCHER APRN T 414.01 CAD 03/04/2010 AMADO PHILIP KATHYA T 414.01 CAD 03/04/2010 AMADO PHILIP KATHYA T 414.01 CAD 03/04/2010 KATHYA FISCHER APRN T 414.01 CAD 06/24/2010 KATHYA FISCHER APRN T 257.2 HYPOGONADISM 06/24/2010 KATHYA FISCHER APRN T 257.2 HYPOGONADISM 06/24/2010 TEJADA DO, DAKOTA K 257.2 HYPOGONADISM 06/24/2010 257.2 HYPOGONADISM 06/24/2010 257.2 HYPOGONADISM 06/24/2010 257.2 HYPOGONADISM 06/24/2010 257.2 HYPOGONADISM 06/24/2010 257.2 HYPOGONADISM 06/24/2010 257.2 HYPOGONADISM 06/24/2010 257.2 HYPOGONADISM 06/24/2010 257.2 HYPOGONADISM 06/24/2010 257.2 HYPOGONADISM 06/24/2010 257.2 HYPOGONADISM 06/24/2010 257.2 HYPOGONADISM 06/24/2010 TEJADA DO, DAKOTA K 257.2 HYPOGONADISM 06/24/2010 KATHYA FISCHER APRN T 257.2 HYPOGONADISM 06/24/2010 TEJADA DO, DAKOTA K 257.2 HYPOGONADISM 06/24/2010 KATHYA FISCHER APRN T 257.2 HYPOGONADISM 06/24/2010 KATHYA FISCHER APRN T 257.2 HYPOGONADISM 06/24/2010 KATHYA FISCHER APRN T 257.2 HYPOGONADISM 06/24/2010 KATHYA FISCHER APRN T 257.2 HYPOGONADISM 06/24/2010 ÁNGEL SPIVEY MD 257.2 HYPOGONADISM 06/24/2010 TEJADA DO, DAKOTA K 257.2 HYPOGONADISM 06/24/2010 KATHYA FISCHER APRN T 257.2 HYPOGONADISM 06/24/2010 KATHYA FISCHER APRN T 257.2 HYPOGONADISM 06/24/2010 KATHYA FISCHER APRN T 257.2 HYPOGONADISM 06/24/2010 KATHYA FISCHER APRN T 257.2 HYPOGONADISM 06/24/2010 KATHYA FISCHER APRN T 257.2 HYPOGONADISM 06/24/2010 KATHYA FISCHER APRN T 257.2 HYPOGONADISM 06/24/2010 KATHYA FISCHER APRN T 257.2 HYPOGONADISM 06/24/2010 KATHYA FISCHER APRN T 257.2 HYPOGONADISM 10/17/2010 KATHYA FISCHER APRN T 278.01 OBESITY, MORBID (BMI >40) 10/17/2010 KATHYA FISCHER APRN T 578.1 red blood in bowel movement (hematochezia) 10/17/2010 KATHYA FISCHER APRN T 729.1 FIBROMYALGIA 10/17/2010 KATHYA FISCHER APRN T 278.01 OBESITY, MORBID (BMI >40) 10/17/2010 KATHYA FISCHER APRN T 578.1 red blood in bowel movement (hematochezia) 10/17/2010 KATHYA FISCHER APRN T 729.1 FIBROMYALGIA 10/17/2010 TEJADA DO, DAKOTA K 278.01 OBESITY, MORBID (BMI >40) 10/17/2010 TEJADA DO, DAKOTA K 578.1 red blood in bowel movement (hematochezia) 10/17/2010 DAKOTA TEJADA DO K 729.1 FIBROMYALGIA 10/17/2010 278.01 OBESITY, MORBID (BMI >40) 10/17/2010 578.1 red blood in bowel movement (hematochezia) 10/17/2010 729.1 FIBROMYALGIA 10/17/2010 278.01 OBESITY, MORBID (BMI >40) 10/17/2010 578.1 red blood in bowel movement (hematochezia) 10/17/2010 729.1 FIBROMYALGIA 10/17/2010 278.01 OBESITY, MORBID (BMI >40) 10/17/2010 578.1 red blood in bowel movement (hematochezia) 10/17/2010 729.1 FIBROMYALGIA 10/17/2010 278.01 OBESITY, MORBID (BMI >40) 10/17/2010 578.1 red blood in bowel movement (hematochezia) 10/17/2010 729.1 FIBROMYALGIA 10/17/2010 278.01 OBESITY, MORBID (BMI >40) 10/17/2010 578.1 red blood in bowel movement (hematochezia) 10/17/2010 729.1 FIBROMYALGIA 10/17/2010 278.01 OBESITY, MORBID (BMI >40) 10/17/2010 578.1 red blood in bowel movement (hematochezia) 10/17/2010 729.1 FIBROMYALGIA 10/17/2010 278.01 OBESITY, MORBID (BMI >40) 10/17/2010 578.1 red blood in bowel movement (hematochezia) 10/17/2010 729.1 FIBROMYALGIA 10/17/2010 278.01 OBESITY, MORBID (BMI >40) 10/17/2010 578.1 red blood in bowel movement (hematochezia) 10/17/2010 729.1 FIBROMYALGIA 10/17/2010 278.01 OBESITY, MORBID (BMI >40) 10/17/2010 578.1 red blood in bowel movement (hematochezia) 10/17/2010 729.1 FIBROMYALGIA 10/17/2010 278.01 OBESITY, MORBID (BMI >40) 10/17/2010 578.1 red blood in bowel movement (hematochezia) 10/17/2010 729.1 FIBROMYALGIA 10/17/2010 278.01 OBESITY, MORBID (BMI >40) 10/17/2010 578.1 red blood in bowel movement (hematochezia) 10/17/2010 729.1 FIBROMYALGIA 10/17/2010 JULI TEJADA DOA K 278.01 OBESITY, MORBID (BMI >40) 10/17/2010 TEJADA DO, DAKOTA K 578.1 red blood in bowel movement (hematochezia) 10/17/2010 TEJADA DO DAKOTA K 729.1 FIBROMYALGIA 10/17/2010 KATHYA FISCHER APRN 278.01 OBESITY, MORBID (BMI >40) 10/17/2010 KATHYA FISCHER APRN 578.1 red blood in bowel movement (hematochezia) 10/17/2010 KATHYA FISCHER APRN 729.1 FIBROMYALGIA 10/17/2010 JULI TEJADA DOA K 278.01 OBESITY, MORBID (BMI >40) 10/17/2010 JULI TEJADA DOA K 578.1 red blood in bowel movement (hematochezia) 10/17/2010 JULI TEJADA DOA K 729.1 FIBROMYALGIA 10/17/2010 KATHYA FISCHER APRN 278.01 OBESITY, MORBID (BMI >40) 10/17/2010 KATHYA FISCHER APRN 578.1 red blood in bowel movement (hematochezia) 10/17/2010 KATHYA FISCHER APRN 729.1 FIBROMYALGIA 10/17/2010 KATHYA FISCHER APRN 278.01 OBESITY, MORBID (BMI >40) 10/17/2010 KATHYA FISCHER APRN 578.1 red blood in bowel movement (hematochezia) 10/17/2010 KATHYA FISCHER APRN 729.1 FIBROMYALGIA 10/17/2010 KATHYA FISCHER APRN 278.01 OBESITY, MORBID (BMI >40) 10/17/2010 KATHYA FISCHER APRN 578.1 red blood in bowel movement (hematochezia) 10/17/2010 KATHYA FISCHER APRN 729.1 FIBROMYALGIA 10/17/2010 KATHYA FISCHER APRN 278.01 OBESITY, MORBID (BMI >40) 10/17/2010 KATHYA FISCHER APRN 578.1 red blood in bowel movement (hematochezia) 10/17/2010 KATHYA FISCHER APRN 729.1 FIBROMYALGIA 10/17/2010 HUERTÁNGEL MONTALVO MD 278.01 OBESITY, MORBID (BMI >40) 10/17/2010 ÁNGEL SPIVEY MD 578.1 red blood in bowel movement (hematochezia) 10/17/2010 ÁNGEL SPIVEY MD 729.1 FIBROMYALGIA 10/17/2010 DAKOTA TEJADA DO 278.01 OBESITY, MORBID (BMI >40) 10/17/2010 DAK[place] TEJADA DO 578.1 red blood in bowel movement (hematochezia) 10/17/2010 DAKOTA TEJADA DO 729.1 FIBROMYALGIA 10/17/2010 KATHYA FISCHER APRN 278.01 OBESITY, MORBID (BMI >40) 10/17/2010 KATHYA FISCHER APRN 578.1 red blood in bowel movement (hematochezia) 10/17/2010 KATHYA FISCHER APRN 729.1 FIBROMYALGIA 10/17/2010 KATHYA FISCHER APRN 278.01 OBESITY, MORBID (BMI >40) 10/17/2010 KATHYA FISCHER APRN 578.1 red blood in bowel movement (hematochezia) 10/17/2010 KATHYA FISCHER APRN 729.1 FIBROMYALGIA 10/17/2010 KATHYA FISCHER APRN 278.01 OBESITY, MORBID (BMI >40) 10/17/2010 KATHYA FISCHER APRN 578.1 red blood in bowel movement (hematochezia) 10/17/2010 KATHYA FISCHER APRN 729.1 FIBROMYALGIA 10/17/2010 KATHYA FISCHER APRN 278.01 OBESITY, MORBID (BMI >40) 10/17/2010 KATHYA FISCHER APRN 578.1 red blood in bowel movement (hematochezia) 10/17/2010 KATHYA FISCHER APRN 729.1 FIBROMYALGIA 10/17/2010 KATHYA FISCHER APRN 278.01 OBESITY, MORBID (BMI >40) 10/17/2010 KATHYA FISCHER APRN 578.1 red blood in bowel movement (hematochezia) 10/17/2010 KATHYA FISCHER APRN 729.1 FIBROMYALGIA 10/17/2010 KATHYA FISCHER APRN 278.01 OBESITY, MORBID (BMI >40) 10/17/2010 KATHYA FISCHER APRN 578.1 red blood in bowel movement (hematochezia) 10/17/2010 KATHYA FISCHER APRN 729.1 FIBROMYALGIA 10/17/2010 KATHYA FISCHER APRN 278.01 OBESITY, MORBID (BMI >40) 10/17/2010 KATHYA FISCHER APRN 578.1 red blood in bowel movement (hematochezia) 10/17/2010 KATHYA FISCHER APRN 729.1 FIBROMYALGIA 10/17/2010 KATHYA FISCHER APRN 278.01 OBESITY, MORBID (BMI >40) 10/17/2010 KATHYA FISCHER APRN 578.1 red blood in bowel movement (hematochezia) 10/17/2010 KATHYA FISCHER APRN 729.1 FIBROMYALGIA 10/18/2010 KATHYA FISCHER APRN 110.1 ONYCHOMYCOSIS 10/18/2010 KATHYA FISCHER APRN 355.6 NEUROMA/METATARSALGIA 10/18/2010 KATHYA FISCHER APRN 356.9 NEUROPATHY 10/18/2010 KATHYA FISCHER APRN 110.1 ONYCHOMYCOSIS 10/18/2010 KATHYA FISCHER APRN 355.6 NEUROMA/METATARSALGIA 10/18/2010 KATHYA FISCHER APRN 356.9 NEUROPATHY 10/18/2010 DAKOTA TEJADA DO K 110.1 ONYCHOMYCOSIS 10/18/2010 JULI TEJADA DOA K 355.6 NEUROMA/METATARSALGIA 10/18/2010 DAKOTA TEJADA DO K 356.9 NEUROPATHY 10/18/2010 110.1 ONYCHOMYCOSIS 10/18/2010 355.6 NEUROMA/ METATARSALGIA 10/18/2010 356.9 NEUROPATHY 10/18/2010 110.1 ONYCHOMYCOSIS 10/18/2010 355.6 NEUROMA/ METATARSALGIA 10/18/2010 356.9 NEUROPATHY 10/18/2010 110.1 Onychomycosis 10/18/2010 355.6 NEUROMA/ METATARSALGIA 10/18/2010 356.9 NEUROPATHY 10/18/2010 110.1 Onychomycosis 10/18/2010 355.6 NEUROMA/ METATARSALGIA 10/18/2010 356.9 Neuropathy 10/18/2010 110.1 Onychomycosis 10/18/2010 355.6 NEUROMA/ METATARSALGIA 10/18/2010 356.9 Neuropathy 10/18/2010 110.1 Onychomycosis 10/18/2010 355.6 NEUROMA/ METATARSALGIA 10/18/2010 356.9 Neuropathy 10/18/2010 110.1 Onychomycosis 10/18/2010 355.6 NEUROMA/ METATARSALGIA 10/18/2010 356.9 Neuropathy 10/18/2010 110.1 Onychomycosis 10/18/2010 355.6 NEUROMA/ METATARSALGIA 10/18/2010 356.9 Neuropathy 10/18/2010 110.1 Onychomycosis 10/18/2010 355.6 NEUROMA/ METATARSALGIA 10/18/2010 356.9 Neuropathy 10/18/2010 110.1 Onychomycosis 10/18/2010 355.6 NEUROMA/ METATARSALGIA 10/18/2010 356.9 Neuropathy 10/18/2010 110.1 Onychomycosis 10/18/2010 355.6 NEUROMA/ METATARSALGIA 10/18/2010 356.9 Neuropathy 10/18/2010 TERRELL CHRISTINE DAKOTA K 110.1 Onychomycosis 10/18/2010 TERRELL CHRISTINE DAKOTA K 355.6 NEUROMA/METATARSALGIA 10/18/2010 TERRELL CHRISTINE DAKOTA K 356.9 Neuropathy 10/18/2010 KATHYA FISCHER APRN 110.1 Onychomycosis 10/18/2010 KATHYA FISCHER APRN 355.6 NEUROMA/METATARSALGIA 10/18/2010 KATHYA FISCHER APRN T 356.9 Neuropathy 10/18/2010 TERRELL CHRISTINE DAKOTA K 110.1 Onychomycosis 10/18/2010 TERRELL CHRISTINE DAKOTA K 355.6 NEUROMA/METATARSALGIA 10/18/2010 TERRELL CHRISTINE DAKOAT K 356.9 Neuropathy 10/18/2010 KATHYA FISCHER APRN 110.1 Onychomycosis 10/18/2010 KATHYA FISCHER APRN T 355.6 NEUROMA/METATARSALGIA 10/18/2010 KATHYA FISCHER APRN T 356.9 Neuropathy 10/18/2010 KATHYA FISCHER APRN T 110.1 Onychomycosis 10/18/2010 KATHYA FISCHER APRN T 355.6 NEUROMA/METATARSALGIA 10/18/2010 KATHYA FISCHER APRN T 356.9 Neuropathy 10/18/2010 KATHYA FISCHER APRN T 110.1 Onychomycosis 10/18/2010 KATHYA FISCHER APRN T 355.6 NEUROMA/METATARSALGIA 10/18/2010 KATHYA FISCHER APRN T 356.9 Neuropathy 10/18/2010 AMADO RETOUCHER, KATHYA T 110.1 Onychomycosis 10/18/2010 AMADO PHILIP, KATHYA T 355.6 NEUROMA/METATARSALGIA 10/18/2010 KATHYA FISCHER APRN T 356.9 Neuropathy 10/18/2010 ÁNGEL SPIVEY MD 110.1 Onychomycosis 10/18/2010 ÁNGEL SPIVEY MD 355.6 NEUROMA/METATARSALGIA 10/18/2010 ÁNGEL SPIVEY MD 356.9 Neuropathy 10/18/2010 TEJADA DO, DAKOTA K 110.1 Onychomycosis 10/18/2010 TEJADA DO, DAKOTA K 355.6 NEUROMA/METATARSALGIA 10/18/2010 TEJADA DO, DAKOTA K 356.9 Neuropathy 10/18/2010 KATHYA FISCHER APRN T 110.1 Onychomycosis 10/18/2010 KATHYA FISCHER APRN T 355.6 NEUROMA/METATARSALGIA 10/18/2010 KATHYA FISCHER APRN T 356.9 Neuropathy 10/18/2010 KATHYA FISCHER APRN T 110.1 Onychomycosis 10/18/2010 KATHYA FISCHER APRN T 355.6 NEUROMA/METATARSALGIA 10/18/2010 AMADO PHILIP KATHYA T 356.9 Neuropathy 10/18/2010 AMADO PHILIP KATHYA T 110.1 Onychomycosis 10/18/2010 AMADO PHILIP KATHYA T 355.6 NEUROMA/METATARSALGIA 10/18/2010 AMADO PHILIP KATHYA T 356.9 Neuropathy 10/18/2010 AMADO PHILIP KATHYA T 110.1 Onychomycosis 10/18/2010 AMADO PHILIP KATHYA T 355.6 NEUROMA/METATARSALGIA 10/18/2010 AMADO PHILIP KATHYA T 356.9 Neuropathy 10/18/2010 AMADO RAHMANN, KATHYA T 110.1 Onychomycosis 10/18/2010 AMADO RAHMANN KATHYA T 355.6 NEUROMA/METATARSALGIA 10/18/2010 AMADO RAHMANN KATHYA T 356.9 Neuropathy 10/18/2010 AMADO PHILIP KATHYA T 110.1 Onychomycosis 10/18/2010 AMADO PHILIP, KATHYA T 355.6 NEUROMA/METATARSALGIA 10/18/2010 AMADO PHILIP KATHYA T 356.9 Neuropathy 10/18/2010 AMADO PHILIP KATHYA T 110.1 Onychomycosis 10/18/2010 KATHYA FISCHER APRN T 355.6 NEUROMA/METATARSALGIA 10/18/2010 KATHYA FISCHER APRN T 356.9 Neuropathy 10/18/2010 KATHYA FISCHER APRN T 110.1 Onychomycosis 10/18/2010 KATHYA FISCHER APRN T 355.6 NEUROMA/METATARSALGIA 10/18/2010 KATHYA FISCHER APRN T 356.9 Neuropathy 01/03/2011 KATHYA FISCHER APRN T 272.1 HYPERTRIGLYCERIDEMIA 01/03/2011 KATHYA FISCHER APRN T 272.1 HYPERTRIGLYCERIDEMIA 01/03/2011 TEJADA DO, DAKOTA K 272.1 HYPERTRIGLYCERIDEMIA 01/03/2011 272.1 HYPERTRIGLYCERIDEMIA 01/03/2011 272.1 HYPERTRIGLYCERIDEMIA 01/03/2011 272.1 HYPERTRIGLYCERIDEMIA 01/03/2011 272.1 Hypertriglyceridemia 01/03/2011 272.1 Hypertriglyceridemia 01/03/2011 272.1 Hypertriglyceridemia 01/03/2011 272.1 Hypertriglyceridemia 01/03/2011 272.1 Hypertriglyceridemia 01/03/2011 272.1 Hypertriglyceridemia 01/03/2011 272.1 Hypertriglyceridemia 01/03/2011 272.1 Hypertriglyceridemia 01/03/2011 TEJADA DO, DAKOTA K 272.1 Hypertriglyceridemia 01/03/2011 KATHYA FISCHER APRN T 272.1 Hypertriglyceridemia 01/03/2011 TEJADA DO, DAKOTA K 272.1 Hypertriglyceridemia 01/03/2011 KATHYA FISCHER APRN T 272.1 Hypertriglyceridemia 01/03/2011 KATHYA FISCHER APRN T 272.1 Hypertriglyceridemia 01/03/2011 KATHYA FISCHER APRN T 272.1 Hypertriglyceridemia 01/03/2011 KATHYA FISCHER APRN T 272.1 Hypertriglyceridemia 01/03/2011 ÁNGEL SPIVEY MD 272.1 Hypertriglyceridemia 01/03/2011 TEJADA DO, DAKOTA K 272.1 Hypertriglyceridemia 01/03/2011 KATHYA FISCHER APRN T 272.1 Hypertriglyceridemia 01/03/2011 KATHYA FISCHER APRN T 272.1 Hypertriglyceridemia 01/03/2011 KATHYA FISCHER APRN T 272.1 Hypertriglyceridemia 01/03/2011 KATHYA FISCHER APRN T 272.1 Hypertriglyceridemia 01/03/2011 KATHYA FISCHER APRN T 272.1 Hypertriglyceridemia 01/03/2011 KATHYA FISCHER APRN T 272.1 Hypertriglyceridemia 01/03/2011 KATHYA FISCHER APRN T 272.1 Hypertriglyceridemia 01/03/2011 KATHYA FISCHER APRN T 272.1 Hypertriglyceridemia 01/24/2011 KATHYA FISCHER APRN 706.8 XEROSIS 01/24/2011 KATHYA FISCHER APRN V04.81 FLU DX (3 YRS AND ABOVE, IM) 01/24/2011 KATHYA FISCHER APRN 706.8 XEROSIS 01/24/2011 KATHYA FISCHER APRN V04.81 FLU DX (3 YRS AND ABOVE, IM) 01/24/2011 TEJADA DAKOTA CHRISTINE K 706.8 XEROSIS 01/24/2011 [place] TEJADA DO V04.81 FLU DX (3 YRS AND ABOVE, IM) 01/24/2011 706.8 XEROSIS 01/24/2011 V04.81 FLU DX (3 YRS AND ABOVE, IM) 01/24/2011 706.8 XEROSIS 01/24/2011 V04.81 FLU DX (3 YRS AND ABOVE, IM) 01/24/2011 706.8 XEROSIS 01/24/2011 V04.81 Flu Dx (3 Yrs And Above, Im) 01/24/2011 706.8 Xerosis 01/24/2011 V04.81 Flu Dx (3 Yrs And Above, Im) 01/24/2011 706.8 Xerosis 01/24/2011 V04.81 Flu Dx (3 Yrs And Above, Im) 01/24/2011 706.8 Xerosis 01/24/2011 V04.81 Flu Dx (3 Yrs And Above, Im) 01/24/2011 706.8 Xerosis 01/24/2011 V04.81 Flu Dx (3 Yrs And Above, Im) 01/24/2011 706.8 Xerosis 01/24/2011 V04.81 Flu Dx (3 Yrs And Above, Im) 01/24/2011 706.8 Xerosis 01/24/2011 V04.81 Flu Dx (3 Yrs And Above, Im) 01/24/2011 706.8 Xerosis 01/24/2011 V04.81 Flu Dx (3 Yrs And Above, Im) 01/24/2011 706.8 Xerosis 01/24/2011 V04.81 Flu Dx (3 Yrs And Above, Im) 01/24/2011 TEJADA DAKOTA CHRISTINE K 706.8 Xerosis 01/24/2011 [place] TEJADA DO V04.81 Flu Dx (3 Yrs And Above, Im) 01/24/2011 KATHYA FISCHER APRN T 706.8 Xerosis 01/24/2011 KATHYA FISCHER APRN T V04.81 Flu Dx (3 Yrs And Above, Im) 01/24/2011 TEJADA DO, DAKOTA K 706.8 Xerosis 01/24/2011 TEJADA DO, DAKOTA K V04.81 Flu Dx (3 Yrs And Above, Im) 01/24/2011 KATHYA FISCHER APRN T 706.8 Xerosis 01/24/2011 KATHYA FISCHER APRN T V04.81 Flu Dx (3 Yrs And Above, Im) 01/24/2011 KATHYA FISCHER APRN T 706.8 Xerosis 01/24/2011 KATHYA FISCHER APRN T V04.81 Flu Dx (3 Yrs And Above, Im) 01/24/2011 KATHYA FISCHER APRN T 706.8 Xerosis 01/24/2011 KATHYA FISCHER APRN T V04.81 Flu Dx (3 Yrs And Above, Im) 01/24/2011 KATHYA FISCHER APRN 706.8 Xerosis 01/24/2011 KATHYA FISCHER APRN T V04.81 Flu Dx (3 Yrs And Above, Im) 01/24/2011 ÁNGEL SPIVEY MD 706.8 Xerosis 01/24/2011 ÁNGEL SPIVEY MD V04.81 Flu Dx (3 Yrs And Above, Im) 01/24/2011 TEJADA DO, DAKOTA K 706.8 Xerosis 01/24/2011 TEJADA DO DAKOTA K V04.81 Flu Dx (3 Yrs And Above, Im) 01/24/2011 KATHYA FISCHER APRN T 706.8 Xerosis 01/24/2011 KATHYA FISCHER APRN T V04.81 Flu Dx (3 Yrs And Above, Im) 01/24/2011 KATHYA FISCHER APRN T 706.8 Xerosis 01/24/2011 KATHYA FISCHER APRN T V04.81 Flu Dx (3 Yrs And Above, Im) 01/24/2011 KATHYA FISCHER APRN T 706.8 Xerosis 01/24/2011 KATHYA FISCHER APRN T V04.81 Flu Dx (3 Yrs And Above, Im) 01/24/2011 KATHYA FISCHER APRN 706.8 Xerosis 01/24/2011 KATHYA FISCHER APRN T V04.81 Flu Dx (3 Yrs And Above, Im) 01/24/2011 KATHYA FISCHER APRN T 706.8 Xerosis 01/24/2011 KATHYA FISCHER APRN T V04.81 Flu Dx (3 Yrs And Above, Im) 01/24/2011 KATHYA FISCHER APRN T 706.8 Xerosis 01/24/2011 KATHYA FISCHER APRN T V04.81 Flu Dx (3 Yrs And Above, Im) 01/24/2011 KATHYA FISCHER APRN T 706.8 Xerosis 01/24/2011 KATHYA FISCHER APRN T V04.81 Flu Dx (3 Yrs And Above, Im) 01/24/2011 KATHYA FISCHER APRN T 706.8 Xerosis 01/24/2011 KATHYA FISCHER APRN T V04.81 Flu Dx (3 Yrs And Above, Im) 03/26/2011 KATHYA FISCHER APRN 782.3 EDEMA 03/26/2011 KATHYA FISCHER APRN 782.3 EDEMA 03/26/2011 TEJADA DO, DAKOTA K 782.3 EDEMA 03/26/2011 782.3 EDEMA 03/26/2011 782.3 EDEMA 03/26/2011 782.3 EDEMA 03/26/2011 782.3 Edema 03/26/2011 782.3 Edema 03/26/2011 782.3 Edema 03/26/2011 782.3 Edema 03/26/2011 782.3 Edema 03/26/2011 782.3 Edema 03/26/2011 782.3 Edema 03/26/2011 782.3 Edema 03/26/2011 TEJADA DO, DAKOTA K 782.3 Edema 03/26/2011 KATHYA FISCHER APRN 782.3 Edema 03/26/2011 TEJADA DO, DAKOTA K 782.3 Edema 03/26/2011 KATHYA FISCHER APRN T 782.3 Edema 03/26/2011 KATHYA FISCHER APRN 782.3 Edema 03/26/2011 KATHYA FISCHER APRN 782.3 Edema 03/26/2011 KATHYA FISCHER APRN T 782.3 Edema 03/26/2011 ÁNGEL SPIVEY MD 782.3 Edema 03/26/2011 TEJADA DO, DAKOTA K 782.3 Edema 03/26/2011 KATHYA FISCHER APRN 782.3 Edema 03/26/2011 KATHYA FISCHER APRN 782.3 Edema 03/26/2011 AMADO RETOUCHER, KATHYA T 782.3 Edema 03/26/2011 AMADO RETOUCHER, KATHYA T 782.3 Edema 03/26/2011 AMADO RETOUCHER, KATHYA T 782.3 Edema 03/26/2011 AMADO RETOUCHER, KATHYA T 782.3 Edema 03/26/2011 AMADO RETOUCHER, KATHYA T 782.3 Edema 03/26/2011 AMADO RETOUCHER, KATHYA T 782.3 Edema 08/22/2011 AMADO RETOUCHER, KATHYA T 272.4 DYSLIPIDEMIA 08/22/2011 AMADO RETOUCHER, KATHYA T 272.4 DYSLIPIDEMIA 08/22/2011 TEJADA DO, DAKOTA K 272.4 DYSLIPIDEMIA 08/22/2011 272.4 DYSLIPIDEMIA 08/22/2011 272.4 DYSLIPIDEMIA 08/22/2011 272.4 DYSLIPIDEMIA 08/22/2011 272.4 DYSLIPIDEMIA 08/22/2011 272.4 DYSLIPIDEMIA 08/22/2011 272.4 DYSLIPIDEMIA 08/22/2011 272.4 DYSLIPIDEMIA 08/22/2011 272.4 DYSLIPIDEMIA 08/22/2011 272.4 DYSLIPIDEMIA 08/22/2011 272.4 DYSLIPIDEMIA 08/22/2011 272.4 DYSLIPIDEMIA 08/22/2011 TEJADA DO, DAKOTA K 272.4 DYSLIPIDEMIA 08/22/2011 AMADO RETOUCHER, KATHYA T 272.4 DYSLIPIDEMIA 08/22/2011 TEJADA DO, DAKOTA K 272.4 DYSLIPIDEMIA 08/22/2011 KATHYA FISCHER APRN T 272.4 DYSLIPIDEMIA 08/22/2011 KATHYA FISCHER APRN T 272.4 DYSLIPIDEMIA 08/22/2011 KATHYA FISCHER APRN T 272.4 DYSLIPIDEMIA 08/22/2011 KATHYA FISCHER APRN T 272.4 DYSLIPIDEMIA 08/22/2011 ÁNGEL SPIVEY MD 272.4 DYSLIPIDEMIA 08/22/2011 TEJADA DO, DAKOTA K 272.4 DYSLIPIDEMIA 08/22/2011 KATHYA FISCHER APRN T 272.4 DYSLIPIDEMIA 08/22/2011 KATHYA FISCHER APRN T 272.4 DYSLIPIDEMIA 08/22/2011 KATHYA FISCHER APRN T 272.4 DYSLIPIDEMIA 08/22/2011 KATHYA FISCHER APRN T 272.4 DYSLIPIDEMIA 08/22/2011 KATHYA FISCHER APRN T 272.4 DYSLIPIDEMIA 08/22/2011 KATHYA FISCHER APRN T 272.4 DYSLIPIDEMIA 08/22/2011 KATHYA FISCHER APRN T 272.4 DYSLIPIDEMIA 08/22/2011 KATHYA FISCHER APRN T 272.4 DYSLIPIDEMIA 03/16/2012 KATHYA FISCHER APRN V03.82 PPV23 (PNEUMOVAX) DX 03/16/2012 KATHYA FISCHER APRN V03.82 PPV23 (PNEUMOVAX) DX 03/16/2012 DAKOTA TEJADA DO V03.82 PPV23 (PNEUMOVAX) DX 03/16/2012 V03.82 PPV23 ( PNEUMOVAX) DX 03/16/2012 V03.82 PPV23 ( PNEUMOVAX) DX 03/16/2012 V03.82 Ppv23 ( pneumovax) Dx 03/16/2012 V03.82 Ppv23 ( pneumovax) Dx 03/16/2012 V03.82 Ppv23 ( pneumovax) Dx 03/16/2012 V03.82 Ppv23 ( pneumovax) Dx 03/16/2012 V03.82 Ppv23 ( pneumovax) Dx 03/16/2012 V03.82 Ppv23 ( pneumovax) Dx 03/16/2012 V03.82 Ppv23 ( pneumovax) Dx 03/16/2012 V03.82 Ppv23 ( pneumovax) Dx 03/16/2012 V03.82 Ppv23 ( pneumovax) Dx 03/16/2012 DAKOTA TEJADA DO V03.82 Ppv23 (pneumovax) Dx 03/16/2012 KATHYA FISCHER APRN V03.82 Ppv23 (pneumovax) Dx 03/16/2012 DAKOTA TEJADA DO V03.82 Ppv23 (pneumovax) Dx 03/16/2012 KATHYA FISCHER APRN V03.82 Ppv23 (pneumovax) Dx 03/16/2012 KATHYA FISCHER APRN V03.82 Ppv23 (pneumovax) Dx 03/16/2012 KATHYA FISCHER APRN V03.82 Ppv23 (pneumovax) Dx 03/16/2012 KATHYA FISCHER APRN V03.82 Ppv23 (pneumovax) Dx 03/16/2012 ÁNGEL SPIVEY MD V03.82 Ppv23 (pneumovax) Dx 03/16/2012 DAKOTA TEJADA DO V03.82 Ppv23 (pneumovax) Dx 03/16/2012 KATHYA FISCHER APRN V03.82 Ppv23 (pneumovax) Dx 03/16/2012 AMADO RETOUCHER, KATHYA T V03.82 Ppv23 (pneumovax) Dx 03/16/2012 AMADO PHILIP, KATHYA T V03.82 Ppv23 (pneumovax) Dx 03/16/2012 AMADO PHILIP, KATHYA T V03.82 Ppv23 (pneumovax) Dx 03/16/2012 AMADO PHILIP, KATHYA T V03.82 Ppv23 (pneumovax) Dx 03/16/2012 KATHYA FISCHER APRN T V03.82 Ppv23 (pneumovax) Dx 03/16/2012 KATHYA FISCHER APRN T V03.82 Ppv23 (pneumovax) Dx 03/16/2012 AMADO PHILIP, KATHAY T V03.82 Ppv23 (pneumovax) Dx 06/14/2012 729.5 PAIN IN LIMB 06/14/2012 729.5 PAIN IN LIMB 06/14/2012 729.5 PAIN IN LIMB 06/14/2012 729.5 Pain In Limb 06/14/2012 729.5 Pain In Limb 06/14/2012 729.5 Pain In Limb 06/14/2012 729.5 Pain In Limb 06/14/2012 729.5 Pain In Limb 06/14/2012 729.5 Pain In Limb 06/14/2012 729.5 Pain In Limb 06/14/2012 729.5 Pain In Limb 06/14/2012 TEJADA DO, DAKOTA K 729.5 Pain In Limb 06/14/2012 KATHYA FISCHER APRN T 729.5 Pain In Limb 06/14/2012 TEJADA DO, DAKOTA K 729.5 Pain In Limb 06/14/2012 KATHYA FISCHER APRN 729.5 Pain In Limb 06/14/2012 KATHYA FISCHER APRN 729.5 Pain In Limb 06/14/2012 KATHYA FISCHER APRN 729.5 Pain In Limb 06/14/2012 KATHYA FISCHER APRN 729.5 Pain In Limb 06/14/2012 ÁNGEL SPIVEY MD 729.5 Pain In Limb 06/14/2012 TEJADA DO, DAKOTA K 729.5 Pain In Limb 06/14/2012 KATHYA FISCHER APRN 729.5 Pain In Limb 06/14/2012 KATHYA FISCHER APRN 729.5 Pain In Limb 06/14/2012 KATHYA FISCHER APRN 729.5 Pain In Limb 06/14/2012 KATHYA FISCHER APRN 729.5 Pain In Limb 06/14/2012 KATHYA FISCHER APRN 729.5 Pain In Limb 06/14/2012 KATHYA FISCHER APRN T 729.5 Pain In Limb 06/14/2012 KATHYA FISCHER APRN T 729.5 Pain In Limb 06/14/2012 KATHYA FISCHER APRN T 729.5 Pain In Limb 09/10/2012 703.8 ONYCHOCRYPTOSIS 09/10/2012 703.8 ONYCHOCRYPTOSIS 09/10/2012 703.8 ONYCHOCRYPTOSIS 09/10/2012 703.8 ONYCHOCRYPTOSIS 09/10/2012 703.8 ONYCHOCRYPTOSIS 09/10/2012 TEJADA DO, DAKOTA K 703.8 ONYCHOCRYPTOSIS 09/10/2012 KATHYA FISCHER APRN T 703.8 ONYCHOCRYPTOSIS 09/10/2012 TEJADA DO, DAKOTA K 703.8 ONYCHOCRYPTOSIS 09/10/2012 KATHYA FISCHER APRN T 703.8 ONYCHOCRYPTOSIS 09/10/2012 KATYHA FISCHER APRN T 703.8 ONYCHOCRYPTOSIS 09/10/2012 KATHYA FISCHER APRN T 703.8 ONYCHOCRYPTOSIS 09/10/2012 KATHYA FISCHER APRN T 703.8 ONYCHOCRYPTOSIS 09/10/2012 ÁNGEL SPIVEY MD 703.8 ONYCHOCRYPTOSIS 09/10/2012 TEJADA DO, DAKOTA K 703.8 ONYCHOCRYPTOSIS 09/10/2012 KATHYA FISCHER APRN T 703.8 ONYCHOCRYPTOSIS 09/10/2012 KATHYA FISCHER APRN T 703.8 ONYCHOCRYPTOSIS 09/10/2012 KATHYA FISCHER APRN T 703.8 ONYCHOCRYPTOSIS 09/10/2012 KATHYA FISCHER APRN T 703.8 ONYCHOCRYPTOSIS 09/10/2012 KATHYA FISCHER APRN T 703.8 ONYCHOCRYPTOSIS 09/10/2012 KATHYA FISCHER APRN T 703.8 ONYCHOCRYPTOSIS 09/10/2012 KATHYA FISCHER APRN T 703.8 ONYCHOCRYPTOSIS 09/10/2012 KATHYA FISCHER APRN T 703.8 ONYCHOCRYPTOSIS 10/25/2013 TEJADA DO, DAKOTA K 402.90 HCVD 10/25/2013 TEJADA DO, DAKOTA K 786.50 CHEST PAIN 10/25/2013 AMADO RETOUCHER, KATHYA T 402.90 HCVD 10/25/2013 AMADO RETOUCHER, KATHYA T 786.50 CHEST PAIN 10/25/2013 AMADO RETOUCHER, KATHYA T 402.90 HCVD 10/25/2013 AMADO RETOUCHER, KATHYA T 786.50 CHEST PAIN 10/25/2013 AMADO RETOUCHER, KATHYA T 402.90 HCVD 10/25/2013 AMADO RETOUCHER, KATHYA T 786.50 CHEST PAIN 10/25/2013 AMADO RETOUCHER, KATHYA T 402.90 HCVD 10/25/2013 AMADO RETOUCHER, KATHYA T 786.50 CHEST PAIN 10/25/2013 AMADO RETOUCHER, KATHYA T 402.90 HCVD 10/25/2013 AMADO RETOUCHER, KATHYA T 786.50 CHEST PAIN 10/25/2013 AMADO RETOUCHER, KATHYA T 402.90 HCVD 10/25/2013 AMADO RETOUCHER, KATHYA T 786.50 CHEST PAIN 10/25/2013 AMADO RETOUCHER, KATHYA T 402.90 HCVD 10/25/2013 AMADO RETOUCHER, KATHYA T 786.50 CHEST PAIN 10/25/2013 AMADO RETOUCHER, KATHYA T 402.90 HCVD 10/25/2013 AMADO RETOUCHER, KATHYA T 786.50 CHEST PAIN 03/08/2014 AMADO RETOUCHER, KATHYA T 782.3 EDEMA 03/08/2014 AMADO RETOUCHER, KATHYA T 782.3 EDEMA 03/08/2014 AMADO RETOUCHER, KATHYA T 782.3 EDEMA 03/08/2014 AMADO RETOUCHER, KATHYA T 782.3 EDEMA 03/08/2014 AMADO RETOUCHER, KATHYA T 782.3 EDEMA 03/08/2014 AMADO RETOUCHER, KATHYA T 782.3 EDEMA 04/11/2014 DIONICIO AMEZCUA FACC, FLORIN FACP CCDS Ot 250.00 04/11/2014 DIONICIO AMEZCUA FACC, FLORIN FACP CCDS Ot 272.4 04/11/2014 DIONICIO AMEZCUA FACC, FLORIN FACP CCDS Ot 278.00 04/11/2014 DIONICIO AMEZCUA FACC, FLORIN FACP CCDS Ot 402.90 04/11/2014 DIONICIO AMEZCUA FACC, FLORIN FACP CCDS Ot 780.57 04/11/2014 DIONICIO AMEZCUA FACC, ALI FACP CCDS Ot 786.50 04/11/2014 DIONICIO AMEZCUA FACC, FLORIN FACP CCDS Ot V58.69 04/11/2014 DIONICIO AMEZCUA FACC, ALI FACP CCDS Ot V85.43 05/08/2014 KATHYA FISCHER APRN 459.81 VENOUS (PERIPHERAL) INSUFFICIENCY UNSPECIFIED 05/08/2014 KATHYA FISCHER APRN 459.81 VENOUS (PERIPHERAL) INSUFFICIENCY UNSPECIFIED 05/08/2014 KATHYA FISCHER APRN 459.81 VENOUS (PERIPHERAL) INSUFFICIENCY UNSPECIFIED 05/08/2014 KATHYA FISCHER APRN 459.81 VENOUS (PERIPHERAL) INSUFFICIENCY UNSPECIFIED 05/22/2014 KATHYA FISCHER APRN 719.46 PAIN IN JOINT INVOLVING LOWER LEG 05/22/2014 KATHYA FISCHER APRN 719.46 PAIN IN JOINT INVOLVING LOWER LEG 05/22/2014 KATHYA FISCHER APRN 719.46 PAIN IN JOINT INVOLVING LOWER LEG 10/02/2014 DIONICIO BUSTOS, FLORIN FACP CCDS Ot 250.00 10/02/2014 DIONICIO BUSTOSC, ALI FACP CCDS Ot 272.4 10/02/2014 DIONICIO BUSTOS, FLORIN FACP CCDS Ot 278.00 10/02/2014 DIONICIO BUSTOS, ALI FACP CCDS Ot 402.90 10/02/2014 DIONICIO BUSTOS, ALI FACP CCDS Ot 459.81 10/02/2014 DIONICIO BUSTOS, ALI FACP CCDS Ot 729.5 10/02/2014 DIONICIO BUSTOS, ALI FACP CCDS Ot 780.57 10/02/2014 DIONICIO BUSTOS, ALI FACP CCDS Ot 786.09 10/10/2014 COLTHARP DO, VARSHA A Ot 250.70 10/10/2014 COLTHARP DO, VARSHA A Ot 401.9 10/10/2014 COLTHARP DO, VARSHA A Ot 459.81 10/10/2014 COLTHARP DO, VARSHA A Ot 707.19 10/12/2014 COLTHARP DO, VARSHA A Ot 250.00 10/12/2014 COLTHARP DO, VARSHA A Ot 459.81 10/12/2014 COLTHARP DO, VARSHA A Ot 782.3 10/12/2014 SAM MOLBEY Ot 276.7 10/17/2014 DIONICIO MD FACC, ALI FACP CCDS Ot 250.00 10/17/2014 DIONICIO AMEZCUA FACC, ALI FACP CCDS Ot 276.7 10/17/2014 DIONICIO AMEZCUA FACC, ALI FACP CCDS Ot 278.00 10/17/2014 DIONICIO AMEZCUA FACC, ALI FACP CCDS Ot 402.90 10/17/2014 DIONICIO AMEZCUA FACC, ALI FACP CCDS Ot 459.81 10/17/2014 DIONICIO AMEZCUA FACC, ALI FACP CCDS Ot 585.3 10/17/2014 DIONICIO AMEZCUA FACC, ALI FACP CCDS Ot 729.5 10/25/2014 DIONICIO AMEZCUA FACC, ALI FACP CCDS Ot 250.00 10/25/2014 DIONICIO AMEZCUA FACC, ALI FACP CCDS Ot 729.5 10/31/2014 BAIMA, SAM L GAMMA RAY OPERATOR Ot 250.00 10/31/2014 BAIMA, SAM L GAMMA RAY OPERATOR Ot 402.90 10/31/2014 BAIMA, SAM L GAMMA RAY OPERATOR Ot 585.3 10/31/2014 BAIMA, SAM L GAMMA RAY OPERATOR Ot 780.57 11/21/2014 BAIMA, SAM L GAMMA RAY OPERATOR Ot 585.3 12/01/2014 DIRK AMEZCUA, ROHIT Ot 250.00 12/01/2014 DIRK AMEZCUA, ROHIT Ot 272.4 12/01/2014 DIRK AMEZCUA, ROHIT Ot 276.7 12/01/2014 DIRK AMEZCUA, ROHIT Ot 278.03 12/01/2014 DIRK AMEZCUA, ROHIT Ot 327.23 12/01/2014 DIRK AMEZCUA, ROHIT Ot 403.90 12/01/2014 DIRK AMEZCUA, ROHIT Ot 585.2 12/01/2014 DIRK AMEZCUA, ROHIT Ot 715.90 12/01/2014 DIRK AMEZCUA, ROHIT Ot 729.1 12/12/2014 COLTHRUTH CHRISTINE, VARSHA A Ot 250.70 DIAB W PERIPH CIRC DIS, TYPE II OR UNSPE 12/12/2014 COLTHARP DO, VARSHA A Ot 401.9 HYPERTENSION NOS 12/12/2014 COLTHRUTH CHRISTINE, VARSHA A Ot 459.81 VENOUS INSUFFICIENCY NOS 12/12/2014 COLTHARP DO, VARSHA A Ot 707.19 ULCER OF OTHER PART OF LOWER LIMB 12/13/2014 ALFONSO ESTRADA MD Ot 250.70 12/13/2014 SEAN AMEZCUA, ALFONSO Gallardo Ot 401.9 12/13/2014 SEAN AMEZCUA, ALFONSO Gallardo Ot 459.81 12/13/2014 SEAN AMEZCUA, ALFONSO Gallardo Ot 707.19 12/14/2014 ALFONSO ESTRADA MD Ot 250.70 12/14/2014 SEAN AMEZCUA, ALFONSO Gallardo Ot 401.9 12/14/2014 SEAN AMEZCUA, ALFONSO Gallardo Ot 459.81 12/14/2014 ALFONSO ESTRADA MD Ot 707.19 01/01/2015 ALFONSO ESTRADA MD Ot 250.70 01/01/2015 SEAN AMEZCUA, ALFONSO Gallardo Ot 401.9 01/01/2015 SEAN AMEZCUA, ALFONSO Gallardo Ot 459.81 01/01/2015 ALFONSO ESTRADA MD Ot 707.19 01/16/2015 ALFONSO ESTRADA MD Ot 250.70 01/16/2015 ALFONSO ESTRADA MD Ot 401.9 01/16/2015 ALFONSO ESTRADA MD Ot 459.81 01/16/2015 ALFONSO ESTRADA MD Ot 707.19 01/17/2015 ALFONSO ESTRADA MD Ot 250.70 DIAB W PERIPH CIRC DIS, TYPE II OR UNSPE 01/17/2015 ALFONSO ESTRADA MD Ot 250.80 DIAB W OTH SPEC MANIFEST, TYPE II OR UNS 01/17/2015 ALFONSO ESTRADA MD Ot 278.01 MORBID OBESITY 01/17/2015 ALFONSO ESTRADA MD Ot 401.9 HYPERTENSION NOS 01/17/2015 ALFONSO ESTRADA MD Ot 459.33 CHRONIC VENOUS HYPERTEN W ULCER/INFLAMMA 01/17/2015 ALFONSO ESTRADA MD Ot 459.81 VENOUS INSUFFICIENCY NOS 01/17/2015 ALFONSO ESTRADA MD Ot 707.12 ULCER OF CALF 01/17/2015 ALFONSO ESTRADA MD Ot 707.19 ULCER OF OTHER PART OF LOWER LIMB 01/17/2015 ALFONSO ESTRADA MD Ot V85.43 BODY MASS INDEX 50.0-59.9, ADULT 01/22/2015 ALFONSO ESTRADA MD Ot 250.70 01/22/2015 ALFONSO ESTRADA MD Ot 401.9 01/22/2015 ALFONSO ESTRADA MD Ot 459.81 01/22/2015 SEAN AMEZCUA, ALFONSO Gallardo Ot 707.19 02/11/2015 SEAN AMEZCUA, ALFONSO Gallardo Ot 250.70 02/11/2015 SEAN AMEZCUA, ALFONSO Gallardo Ot 401.9 02/11/2015 SEAN AMEZCUA, ALFONSO Gallardo Ot 459.81 02/11/2015 SEAN AMEZCUA, ALFONSO Gallardo Ot 707.19 03/05/2015 SEAN AMEZCUA, ALFONSO Gallardo Ot E11.622 03/05/2015 SEAN AMEZCUA, ALFONSO Gallardo Ot E66.01 03/05/2015 SEAN AMEZCUA, ALFONSO Gallardo Ot I87.333 03/05/2015 SEAN AMEZCUA, ALFONSO Gallardo Ot L97.222 04/04/2015 SEAN AMEZCUA, ALFONSO Gallardo Ot E11.622 04/04/2015 SAEN AMEZCUA, ALFONSO Gallardo Ot E66.01 04/04/2015 SEAN AMEZCUA, ALFONSO Gallardo Ot I87.333 04/04/2015 SEAN AMEZCUA, ALFONSO Gallardo Ot I89.0 04/04/2015 SEAN AMEZCUA, ALFONSO Gallardo Ot L97.222 04/09/2015 SEAN AMEZCUA, ALFONSO Gallardo Ot E11.622 04/09/2015 SEAN AMEZCUA, ALFONSO Gallardo Ot E66.01 04/09/2015 SEAN AMEZCUA, ALFONSO Gallardo Ot I87.333 04/09/2015 SEAN AMEZCUA, ALFONSO Gallardo Ot I89.0 04/09/2015 SEAN AMEZCUA, ALFONSO Gallardo Ot L97.222 04/22/2015 SEAN AMEZCUA, ALFONSO Gallardo Ot E11.622 TYPE 2 DIABETES MELLITUS WITH OTHER SKIN 04/22/2015 SEAN AMEZCUA, ALFONSO Gallardo Ot E66.01 MORBID (SEVERE) OBESITY DUE TO EXCESS CA 04/22/2015 SEAN AMEZCUA, ALFONSO Gallardo Ot I87.333 CHRONIC VENOUS HTN W ULCER AND INFLAM OF 04/22/2015 SEAN AMEZCUA, ALFONSO Gallardo Ot L97.222 NON-PRESSURE CHRONIC ULCER OF LEFT CALF 04/23/2015 SEAN AMEZCUA, ALFONSO Gallardo Ot E11.622 04/23/2015 SEAN AMEZCUA, ALFONSO Gallardo Ot E66.01 04/23/2015 SEAN AMEZCUA, ALFONSO Gallardo Ot I87.333 04/23/2015 SEAN AMEZCUA, ALFONSO Gallardo Ot L97.222 04/24/2015 SEAN AMEZCUA, ALFONSO Gallardo Ot 250.80 04/24/2015 SEAN AMEZCUA, ALFONSO Gallardo Ot 278.01 04/24/2015 SEAN AMEZCUA, ALFONSO Gallardo Ot 459.33 04/24/2015 SEAN AMEZCUA, ALFONSO Gallardo Ot 707.12 04/24/2015 SEAN AMEZCUA, ALFONSO Gallardo Ot E11.622 04/24/2015 SEAN AMEZCUA, ALFONSO Gallardo Ot E66.01 04/24/2015 SEAN AMEZCUA, ALFONSO Gallardo Ot I87.333 04/24/2015 SEAN AMEZCUA, ALFONSO Gallardo Ot L97.222 05/08/2015 SEAN AMEZCUA, ALFONSO Gallardo Ot E11.622 05/08/2015 SEAN AMEZCUA, ALFONSO Gallardo Ot E66.01 05/08/2015 SEAN AMEZCUA, ALFONSO Gallardo Ot I70.242 05/08/2015 SEAN AMEZCUA, ALFONSO Gallardo Ot I87.333 05/08/2015 SEAN AMEZCUA, ALFONSO Gallardo Ot I89.0 05/08/2015 SEAN AMEZCUA, ALFONSO Gallardo Ot L97.222 05/08/2015 SEAN AMEZCUA, ALFONSO Gallardo Ot R22.42 06/07/2015 SEAN AMEZCUA, ALFONSO Gallardo Ot 250.80 06/07/2015 SEAN AMEZCUA, ALFONSO Gallardo Ot 278.01 06/07/2015 SEAN AMEZCUA, ALFONSO Gallardo Ot 459.33 06/07/2015 SEAN AMEZCUA, ALFONSO Gallardo Ot 707.12 06/07/2015 SEAN AMEZCUA, ALFONSO Gallardo Ot E11.622 06/07/2015 SEAN AMEZCUA, ALFONSO Gallardo Ot E66.01 06/07/2015 SEAN AMEZCUA, ALFONSO Gallardo Ot I87.333 06/07/2015 SEAN AMEZCUA, ALFONSO Gallardo Ot L97.222 07/04/2015 SEAN AMEZCUA, ALFONSO Gallardo Ot 250.80 07/04/2015 SEAN AMEZCUA, ALFONSO Gallardo Ot 278.01 07/04/2015 SEAN AMEZCUA, ALFONSO Gallardo Ot 459.33 07/04/2015 SEAN AMEZCUA, ALFONSO Gallardo Ot 707.12 07/04/2015 SEAN AMEZCUA, ALFONSO Gallardo Ot E11.622 TYPE 2 DIABETES MELLITUS WITH OTHER SKIN 07/04/2015 SEAN AMEZCUA, ALFONSO Gallardo Ot E66.01 MORBID (SEVERE) OBESITY DUE TO EXCESS CA 07/04/2015 SEAN AMEZCUA, ALFONSO Gallardo Ot I87.333 CHRONIC VENOUS HTN W ULCER AND INFLAM OF 07/04/2015 SEAN AMEZCUA, ALFONSO Gallardo Ot L97.222 NON-PRESSURE CHRONIC ULCER OF LEFT CALF 07/09/2015 TAMIKA HILARIO DO Ot E66.9 07/09/2015 TAMIKA HILARIO DO Ot G47.30 07/09/2015 TAMIKA HILARIO DO Ot R06.09 07/23/2015 TAMIKA HILARIO DO Ot E66.9 07/23/2015 TAMIKA HILARIO DO Ot G47.30 07/23/2015 TAMIKA HILARIO DO Ot R06.09 07/26/2015 DIONICIO AMEZCUA FACC, ALI FACP CCDS Ot 250.00 07/26/2015 DIONICIO AMEZCUA FACC, ALI FACP CCDS Ot 272.4 07/26/2015 DIONICIO AMEZCUA FACC, ALI FACP CCDS Ot 278.00 07/26/2015 DIONICIO AMEZCUA FACC, ALI FACP CCDS Ot 402.90 07/26/2015 DIONICIO AMEZCUA FACC, ALI FACP CCDS Ot 780.57 07/26/2015 DIONICIO AMEZCUA FACC, ALI FACP CCDS Ot 786.50 07/26/2015 DIONICIO AMEZCUA [facility], ALI FACP CCDS Ot 250.00 07/26/2015 DIONICIO AMEZCUA FAC, ALI FACP CCDS Ot 272.4 07/26/2015 DIONICIO AMEZCUA FAC, ALI FACP CCDS Ot 278.00 07/26/2015 DIONICIO AMEZCUA [facility], ALI FACP CCDS Ot 402.90 07/26/2015 DIONICIO AMEZCUA [facility], ALI FACP CCDS Ot 780.57 07/26/2015 DIONICIO AMEZCUA [facility], ALI FACP CCDS Ot 786.50 07/26/2015 DIONICIO AMEZCUA [facility], ALI FACP CCDS Ot V58.69 07/26/2015 DIONICIO AMEZCUA [facility], ALI FACP CCDS Ot V85.43 07/26/2015 COLTHARP DO, VARSHA A Ot 250.00 07/26/2015 COLTHARP DO, VARSHA A Ot 459.81 07/26/2015 COLTHARP DO, VARSHA A Ot 782.3 07/26/2015 DIONICIO AMEZCUA [facility], ALI FACP CCDS Ot 250.00 07/26/2015 DIONICIO BUSTOSC, ALI FACP CCDS Ot 272.4 07/26/2015 DIONICIO BUSTOS, ALI FACP CCDS Ot 278.00 07/26/2015 DIONICIO MD FACC, ALI FACP CCDS Ot 402.90 07/26/2015 DIONICIO AMEZCUA FACC, ALI FACP CCDS Ot 459.81 07/26/2015 DIONICIO AMEZCUA FACC, ALI FACP CCDS Ot 729.5 07/26/2015 DIONICIO AMEZCUA FACC, ALI FACP CCDS Ot 780.57 07/26/2015 DIONICIO AMEZCUA FACC, ALI FACP CCDS Ot 786.09 07/26/2015 SEAN AMEZCUA, ALFONSO Gallardo Ot E11.622 07/26/2015 SEAN AMEZCUA, ALFONSO Sami Ot E66.01 07/26/2015 SEAN AMEZCUA, ALFONSO Gallardo Ot I87.333 07/26/2015 SEAN AMEZCUA, ALFONSO Gallardo Ot I89.0 07/26/2015 SEAN AMEZCUA, ALFONSO Gallardo Ot L97.222 07/26/2015 SAM MOBLEY GAMMA RAY OPERATOR Ot 276.7 07/26/2015 DIONICIO AMEZCUA FAC, ALI FACP CCDS Ot 250.00 07/26/2015 DIONICIO AMEZCUA FAC, ALI FACP CCDS Ot 276.7 07/26/2015 DIONICIO AMEZCUA FAC, ALI FACP CCDS Ot 278.00 07/26/2015 DIONICIO AMEZCUA FAC, ALI FACP CCDS Ot 402.90 07/26/2015 DIONICIO AMEZCUA FAC, ALI FACP CCDS Ot 459.81 07/26/2015 DIONICIO AMEZCUA [facility], ALI FACP CCDS Ot 585.3 07/26/2015 DIONICIO AMEZCUA FAC, ALI FACP CCDS Ot 729.5 07/26/2015 DIONICIO AMEZCUA FACC, ALI FACP CCDS Ot 250.00 07/26/2015 DIONICIO AMEZCUA FACC, ALI FACP CCDS Ot 729.5 07/26/2015 SAM MOBLEY L GAMMA RAY OPERATOR Ot 250.00 07/26/2015 LEANDRA SAM L GAMMA RAY OPERATOR Ot 402.90 07/26/2015 LEANDRA SAM L GAMMA RAY OPERATOR Ot 585.3 07/26/2015 LEANDRA SAM L GAMMA RAY OPERATOR Ot 780.57 07/26/2015 LEANDRA SAM L GAMMA RAY OPERATOR Ot 585.3 07/26/2015 DIRK AMEZCUA, ROHIT Ot 250.00 07/26/2015 DIRK AMEZCUA, ROHIT Ot 272.4 07/26/2015 DIRK AMEZCUA, ROHIT Ot 276.7 07/26/2015 DIRK AMEZCUA, ROHIT Ot 278.03 07/26/2015 DIRK AMEZCUA, ROHIT Ot 327.23 07/26/2015 DIRK AMEZCUA, ROHIT Ot 403.90 07/26/2015 DIRK AMEZCUA, ROHIT Ot 585.2 07/26/2015 DIRK AMEZCUA, ROHIT Ot 715.90 07/26/2015 DIRK AMEZCUA, ROHIT Ot 729.1 07/26/2015 SEAN AMEZCUA, ALFONSO Gallardo Ot E11.622 07/26/2015 SEAN AMEZCUA, ALFONSO Saim Ot E66.01 07/26/2015 SEAN AMEZCUA, ALFONSO Gallardo Ot I87.333 07/26/2015 SEAN AMEZCUA, ALFONSO Gallardo Ot I89.0 07/26/2015 SEAN AMEZCUA, ALFONSO Gallardo Ot L97.222 07/26/2015 SEAN AMEZCUA, ALFONSO Sami Ot E11.622 07/26/2015 SEAN AMEZCUA, ALFONSO Gallardo Ot E66.01 07/26/2015 SEAN AMEZCUA, ALFONSO Gallardo Ot I70.242 07/26/2015 SEAN AMEZCUA, ALFONSO Gallardo Ot I87.333 07/26/2015 SEAN AMEZCUA, ALFONSO Gallardo Ot I89.0 07/26/2015 SEAN AMEZCUA, ALFONSO Gallardo Ot L97.222 07/26/2015 SEAN AMEZCUA, ALFONSO Gallardo Ot R22.42 07/26/2015 TAMIKA HILARIO DO Ot E66.9 07/26/2015 TAMIKA HILARIO DO Ot G47.30 07/26/2015 TAMIKA HILARIO DO Ot R06.09 07/27/2015 YESENIA SANTILLAN RETOUCHER Ot E66.9 07/27/2015 YESENIA SANTILLAN RETOUCHER Ot J98.4 07/27/2015 YESENIA SANTILLAN RETOUCHER Ot R06.09 08/08/2015 YESENIA SANTILLAN RETOUCHER Ot E66.9 OBESITY, UNSPECIFIED 08/08/2015 YESENIA SANTILLAN RETOUCHER Ot J98.4 OTHER DISORDERS OF LUNG 08/08/2015 YESENIA SANTILLAN RETOUCHER Ot R06.09 OTHER FORMS OF DYSPNEA 08/11/2015 ABOULROHIT LYNN MD Ot E11.22 TYPE 2 DIABETES MELLITUS W DIABETIC ARCHITECTURAL PROJECT CAPTAIN 08/11/2015 ROHIT CAVAZOS MD Ot E66.2 MORBID (SEVERE) OBESITY WITH ALVEOLAR HY 08/11/2015 ROHIT CAVAZOS MD Ot E78.5 HYPERLIPIDEMIA, UNSPECIFIED 08/11/2015 ROHIT CAVAZOS MD Ot E87.5 HYPERKALEMIA 08/11/2015 ROHIT CAVAZOS MD Ot I12.9 HYPERTENSIVE CHRONIC KIDNEY DISEASE W ST 08/11/2015 ROHIT CAVAZOS MD Ot M19.90 UNSPECIFIED OSTEOARTHRITIS, UNSPECIFIED 08/11/2015 ROHIT CAVAZOS MD Ot M79.7 FIBROMYALGIA 08/11/2015 ROHIT CAVAZOS MD Ot N18.2 CHRONIC KIDNEY DISEASE, STAGE 2 (MILD) 08/11/2015 ROHIT CAVAZOS MD Ot R60.0 LOCALIZED EDEMA 08/11/2015 ROHIT CAVAZOS MD Ot Z86.59 PERSONAL HISTORY OF OTHER MENTAL AND BEH 08/23/2015 ROHIT CAVAZOS MD Ot E11.22 TYPE 2 DIABETES MELLITUS W DIABETIC ARCHITECTURAL PROJECT CAPTAIN 08/23/2015 ROHIT CAVAZOS MD Ot E66.2 MORBID (SEVERE) OBESITY WITH ALVEOLAR HY 08/23/2015 ROHIT CAVAZOS MD Ot E78.5 HYPERLIPIDEMIA, UNSPECIFIED 08/23/2015 ROHIT CAVAZOS MD Ot E87.5 HYPERKALEMIA 08/23/2015 ROHIT CAVAZOS MD Ot I12.9 HYPERTENSIVE CHRONIC KIDNEY DISEASE W ST 08/23/2015 ROHIT CAVAZOS MD Ot M19.90 UNSPECIFIED OSTEOARTHRITIS, UNSPECIFIED 08/23/2015 ROHIT CAVAZOS MD Ot M79.7 FIBROMYALGIA 08/23/2015 ROHIT CAVAZOS MD Ot N18.2 CHRONIC KIDNEY DISEASE, STAGE 2 (MILD) 08/23/2015 ROHIT CAVAZOS MD Ot R60.0 LOCALIZED EDEMA 08/23/2015 ROHIT CAVAZOS MD Ot Z86.59 PERSONAL HISTORY OF OTHER MENTAL AND BEH 08/24/2015 SAM MOBLEY Ot I10 ESSENTIAL (PRIMARY) HYPERTENSION 08/24/2015 SAM MOBLEY GAMMA RAY OPERATOR Ot R06.09 OTHER FORMS OF DYSPNEA 09/06/2015 SAM MOBLEY GAMMA RAY OPERATOR Ot I10 ESSENTIAL (PRIMARY) HYPERTENSION 09/06/2015 SAM MOBLEY GAMMA RAY OPERATOR Ot R06.09 OTHER FORMS OF DYSPNEA 10/16/2015 NAYELI CAVAZOS MD Ot E11.22 TYPE 2 DIABETES MELLITUS W DIABETIC ARCHITECTURAL PROJECT CAPTAIN 10/16/2015 NAYELI CAVAZOS MD Ot E66.2 MORBID (SEVERE) OBESITY WITH ALVEOLAR HY 10/16/2015 NAYELI CAVAZOS MD Ot E78.5 HYPERLIPIDEMIA, UNSPECIFIED 10/16/2015 NAYELI CAVAZOS MD Ot E87.5 HYPERKALEMIA 10/16/2015 NAYELI CAVAZOS MD Ot G47.33 OBSTRUCTIVE SLEEP APNEA (ADULT) (PEDIATR 10/16/2015 NAYELI CAVAZOS MD Ot I12.9 HYPERTENSIVE CHRONIC KIDNEY DISEASE W ST 10/16/2015 NAYELI CAVAZOS MD S Ot M19.90 UNSPECIFIED OSTEOARTHRITIS, UNSPECIFIED 10/16/2015 NAYELI CAVAZOS MD S Ot M79.7 FIBROMYALGIA 10/16/2015 DIRK AMEZCUA, NAYELI S Ot N18.2 CHRONIC KIDNEY DISEASE, STAGE 2 (MILD) 10/16/2015 NAYELI CAVAZOS MD S Ot R60.0 LOCALIZED EDEMA 10/16/2015 NAYELI CAVAZOS MD S Ot Z86.59 PERSONAL HISTORY OF OTHER MENTAL AND BEH 11/05/2015 NAYELI CAVAZOS MD Ot E11.22 TYPE 2 DIABETES MELLITUS W DIABETIC ARCHITECTURAL PROJECT CAPTAIN 11/05/2015 NAYELI CAVAZOS MD Ot E66.2 MORBID (SEVERE) OBESITY WITH ALVEOLAR HY 11/05/2015 NAYELI CAVAZOS MD Ot E78.5 HYPERLIPIDEMIA, UNSPECIFIED 11/05/2015 NAYELI CAVAZOS MD S Ot E87.5 HYPERKALEMIA 11/05/2015 NAYELI CAVAZOS MD S Ot G47.33 OBSTRUCTIVE SLEEP APNEA (ADULT) (PEDIATR 11/05/2015 NAYELI CAVAZOS MD S Ot I12.9 HYPERTENSIVE CHRONIC KIDNEY DISEASE W ST 11/05/2015 NAYELI CAVAZOS MD, Ot M19.90 UNSPECIFIED OSTEOARTHRITIS, UNSPECIFIED 11/05/2015 NAYELI CAVAZOS MD Ot M79.7 FIBROMYALGIA 11/05/2015 NAYELI CAVAZOS MD, Ot N18.2 CHRONIC KIDNEY DISEASE, STAGE 2 (MILD) 11/05/2015 NAYELI CAVAZOS MD Ot R60.0 LOCALIZED EDEMA 11/05/2015 NAYELI CAVAZOS MD, Ot Z86.59 PERSONAL HISTORY OF OTHER MENTAL AND BEH 12/06/2015 ALFONSO ESTRADA MD, Ot E11.622 TYPE 2 DIABETES MELLITUS WITH OTHER SKIN 12/06/2015 ALFONSO ESTRADA MD, Ot E66.01 MORBID (SEVERE) OBESITY DUE TO EXCESS CA 12/06/2015 ALFONSO ESTRADA MD, Ot I87.333 CHRONIC VENOUS HTN W ULCER AND INFLAM OF 12/06/2015 ALFONSO ESTRADA MD, Ot I89.0 LYMPHEDEMA, NOT ELSEWHERE CLASSIFIED 12/06/2015 ALFONSO ESTRADA MD, Ot L97.211 NON-PRS CHRONIC ULCER OF RIGHT CALF LIMI 12/06/2015 ALFONSO ESTRADA MD, Ot L97.222 NON-PRESSURE CHRONIC ULCER OF LEFT CALF 12/06/2015 ALFONSO ESTRADA MD, Ot R58 HEMORRHAGE, NOT ELSEWHERE CLASSIFIED 12/06/2015 ALFONSO ESTRADA MD, Ot Z68.43 BODY MASS INDEX (BMI) 50-59.9 , ADULT 12/19/2015 ROHIT CAVAZOS MD, Ot E11.22 TYPE 2 DIABETES MELLITUS W DIABETIC ARCHITECTURAL PROJECT CAPTAIN 12/19/2015 ROHIT CAVAZOS MD, Ot E66.2 MORBID (SEVERE) OBESITY WITH ALVEOLAR HY 12/19/2015 ROHIT CAVAZOS MD, Ot E78.5 HYPERLIPIDEMIA, UNSPECIFIED 12/19/2015 ROHIT CAVAZOS MD, Ot E87.5 HYPERKALEMIA 12/19/2015 ROHIT CAVAZOS MD, Ot G47.33 OBSTRUCTIVE SLEEP APNEA (ADULT) (PEDIATR 12/19/2015 ROHIT CAVAZOS MD, Ot I12.9 HYPERTENSIVE CHRONIC KIDNEY DISEASE W ST 12/19/2015 ROHIT CAVAZOS MD, Ot M19.90 UNSPECIFIED OSTEOARTHRITIS, UNSPECIFIED 12/19/2015 ROHIT CAVAZOS MD Ot M79.7 FIBROMYALGIA 12/19/2015 ROHIT CAVAZOS MD Ot N18.2 CHRONIC KIDNEY DISEASE, STAGE 2 (MILD) 12/19/2015 ROHIT CAVAZOS MD Ot R60.0 LOCALIZED EDEMA 12/19/2015 ROHIT CAVAZOS MD Ot Z86.59 PERSONAL HISTORY OF OTHER MENTAL AND BEH 12/21/2015 ROHIT CAVAZOS MD Ot E11.22 TYPE 2 DIABETES MELLITUS W DIABETIC ARCHITECTURAL PROJECT CAPTAIN 12/21/2015 ROHIT CAVAZOS MD Ot E66.2 MORBID (SEVERE) OBESITY WITH ALVEOLAR HY 12/21/2015 ROHIT CAVAZOS MD, Ot E78.5 HYPERLIPIDEMIA, UNSPECIFIED 12/21/2015 ROHIT CAVAZOS MD Ot E87.5 HYPERKALEMIA 12/21/2015 ROHIT CAVAZOS MD Ot G47.33 OBSTRUCTIVE SLEEP APNEA (ADULT) (PEDIATR 12/21/2015 ROHIT CAVAZOS MD Ot I12.9 HYPERTENSIVE CHRONIC KIDNEY DISEASE W ST 12/21/2015 ROHIT CAVAZOS MD Ot M19.90 UNSPECIFIED OSTEOARTHRITIS, UNSPECIFIED 12/21/2015 ROHIT CAVAZOS MD Ot M79.7 FIBROMYALGIA 12/21/2015 ROHIT CAVAZOS MD Ot N18.2 CHRONIC KIDNEY DISEASE, STAGE 2 (MILD) 12/21/2015 ROHIT CAVAZOS MD Ot R60.0 LOCALIZED EDEMA 12/21/2015 ROHIT CAVAZOS MD, Ot Z86.59 PERSONAL HISTORY OF OTHER MENTAL AND BEH 12/31/2015 ALFONSO ETSRADA MD, Ot E11.622 TYPE 2 DIABETES MELLITUS WITH OTHER SKIN 12/31/2015 ALFONSO ESTRADA MD, Ot E66.01 MORBID (SEVERE) OBESITY DUE TO EXCESS CA 12/31/2015 ALFONSO ESTRADA MD, Ot I87.333 CHRONIC VENOUS HTN W ULCER AND INFLAM OF 12/31/2015 ALFONSO ESTRADA MD, Ot I89.0 LYMPHEDEMA, NOT ELSEWHERE CLASSIFIED 12/31/2015 ALFONSO ESTRDAA MD, Ot L97.211 NON-PRS CHRONIC ULCER OF RIGHT CALF LIMI 12/31/2015 ALFONSO ESTRADA MD, Ot L97.222 NON-PRESSURE CHRONIC ULCER OF LEFT CALF 12/31/2015 ALFONSO ESTRADA MD, Ot R58 HEMORRHAGE, NOT ELSEWHERE CLASSIFIED 12/31/2015 ALFONSO ESTRADA MD, Ot Z68.43 BODY MASS INDEX (BMI) 50-59.9 , ADULT 01/03/2016 ALFONSO ESTRADA MD, Ot E11.622 TYPE 2 DIABETES MELLITUS WITH OTHER SKIN 01/03/2016 ALFONSO ESTRADA MD, Ot E66.01 MORBID (SEVERE) OBESITY DUE TO EXCESS CA 01/03/2016 ALFONSO ESTRADA MD, Ot I87.333 CHRONIC VENOUS HTN W ULCER AND INFLAM OF 01/03/2016 ALFONSO ESTRADA MD, Ot I89.0 LYMPHEDEMA, NOT ELSEWHERE CLASSIFIED 01/03/2016 ALFONSO ESTRADA MD, Ot L97.211 NON-PRS CHRONIC ULCER OF RIGHT CALF LIMI 01/03/2016 ALFONSO ESTRADA MD, Ot L97.222 NON-PRESSURE CHRONIC ULCER OF LEFT CALF 01/03/2016 ALFONSO ESTRADA MD, Ot R58 HEMORRHAGE, NOT ELSEWHERE CLASSIFIED 01/03/2016 ALFONSO ESTRADA MD, Ot Z68.43 BODY MASS INDEX (BMI) 50-59.9 , ADULT 01/07/2016 ROHIT CAVAZOS MD Ot E11.22 TYPE 2 DIABETES MELLITUS W DIABETIC ARCHITECTURAL PROJECT CAPTAIN 01/07/2016 ROHIT CAVAZOS MD, Ot E66.2 MORBID (SEVERE) OBESITY WITH ALVEOLAR HY 01/07/2016 ROHIT CAVAZOS MD Ot E78.5 HYPERLIPIDEMIA, UNSPECIFIED 01/07/2016 ROHIT CAVAZOS MD Ot E87.5 HYPERKALEMIA 01/07/2016 ROHIT CAVAZOS MD Ot G47.33 OBSTRUCTIVE SLEEP APNEA (ADULT) (PEDIATR 01/07/2016 ROHIT CAVAZOS MD Ot I12.9 HYPERTENSIVE CHRONIC KIDNEY DISEASE W ST 01/07/2016 ROHIT CAVAZOS MD Ot M19.90 UNSPECIFIED OSTEOARTHRITIS, UNSPECIFIED 01/07/2016 ROHIT CAVAZOS MD Ot M79.7 FIBROMYALGIA 01/07/2016 ROHIT CAVAZOS MD Ot N18.2 CHRONIC KIDNEY DISEASE, STAGE 2 (MILD) 01/07/2016 ROHIT CAVAZOS MD Ot R60.0 LOCALIZED EDEMA 01/07/2016 ROHIT CAVAZOS MD Ot Z86.59 PERSONAL HISTORY OF OTHER MENTAL AND BEH 03/16/2016 ROHIT CAVAZOS MD Ot E11.22 TYPE 2 DIABETES MELLITUS W DIABETIC ARCHITECTURAL PROJECT CAPTAIN 03/16/2016 ROHIT CAVAZOS MD Ot E66.2 MORBID (SEVERE) OBESITY WITH ALVEOLAR HY 03/16/2016 ROHIT CAVAZOS MD Ot E78.5 HYPERLIPIDEMIA, UNSPECIFIED 03/16/2016 ROHIT CAVAZOS MD Ot E87.5 HYPERKALEMIA 03/16/2016 ROHIT CAVAZOS MD Ot G47.33 OBSTRUCTIVE SLEEP APNEA (ADULT) (PEDIATR 03/16/2016 ROHIT CAVAZOS MD Ot I12.9 HYPERTENSIVE CHRONIC KIDNEY DISEASE W ST 03/16/2016 ROHIT CAVAZOS MD Ot M19.90 UNSPECIFIED OSTEOARTHRITIS, UNSPECIFIED 03/16/2016 ROHIT CAVAZOS MD Ot M79.7 FIBROMYALGIA 03/16/2016 ROHIT CAVAZOS MD Ot N18.2 CHRONIC KIDNEY DISEASE, STAGE 2 (MILD) 03/16/2016 ROHIT CAVAZOS MD Ot R60.0 LOCALIZED EDEMA 03/16/2016 ROHIT CAVAZOS MD Ot Z86.59 PERSONAL HISTORY OF OTHER MENTAL AND BEH 03/17/2016 ROHIT CAVAZOS MD Ot E11.22 TYPE 2 DIABETES MELLITUS W DIABETIC ARCHITECTURAL PROJECT CAPTAIN 03/17/2016 ROHIT CAVAZOS MD Ot E66.2 MORBID (SEVERE) OBESITY WITH ALVEOLAR HY 03/17/2016 ROHIT CAVAZOS MD Ot E78.5 HYPERLIPIDEMIA, UNSPECIFIED 03/17/2016 ROHIT CAVAZOS MD Ot E87.5 HYPERKALEMIA 03/17/2016 ROHIT CAVAZOS MD Ot G47.33 OBSTRUCTIVE SLEEP APNEA (ADULT) (PEDIATR 03/17/2016 ROHIT CAVAZOS MD Ot I12.9 HYPERTENSIVE CHRONIC KIDNEY DISEASE W ST 03/17/2016 ROHIT CAVAZOS MD Ot M19.90 UNSPECIFIED OSTEOARTHRITIS, UNSPECIFIED 03/17/2016 ROHIT CAVAZOS MD Ot M79.7 FIBROMYALGIA 03/17/2016 ROHIT CAVAZOS MD Ot N18.2 CHRONIC KIDNEY DISEASE, STAGE 2 (MILD) 03/17/2016 DIRK AMEZCUA, ROHIT Ot R60.0 LOCALIZED EDEMA 03/17/2016 DIRK AMEZCUA, ROHIT Ot Z86.59 PERSONAL HISTORY OF OTHER MENTAL AND BEH 04/24/2016 DIONICIO AMEZCUA FACC, ALI FACP CCDS Ot 250.00 DIAB RONAL WO COMPL, TYPE II OR UNSPEC TY 04/24/2016 DIONICIO AMEZCUA FACC, ALI FACP CCDS Ot 272.4 HYPERLIPIDEMIA NEC/NOS 04/24/2016 DIONICIO AMEZCUA FACC, ALI FACP CCDS Ot 278.00 OBESITY, NOS 04/24/2016 DIONICIO AMEZCUA FACC, ALI FACP CCDS Ot 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 04/24/2016 DIONICIO AMEZCUA FACC, ALI FACP CCDS Ot 780.57 UNSPECIFIED SLEEP APNEA 04/24/2016 DIONICIO AMEZCUA FACC, ALI FACP CCDS Ot 786.50 CHEST PAIN NOS 04/24/2016 DIONICIO AMEZCUA FACC, ALI FACP CCDS Ot 250.00 DIAB RONAL WO COMPL, TYPE II OR UNSPEC TY 04/24/2016 DIONICIO AMEZCUA FACC, ALI FACP CCDS Ot 272.4 HYPERLIPIDEMIA NEC/NOS 04/24/2016 DIONICIO AMEZCUA FACC, ALI FACP CCDS Ot 278.00 OBESITY, NOS 04/24/2016 DIONICIO AMEZCUA FACC, ALI FACP CCDS Ot 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 04/24/2016 DIONICIO AMEZCUA FACC, ALI FACP CCDS Ot 780.57 UNSPECIFIED SLEEP APNEA 04/24/2016 DIONICIO AMEZCUA FACC, ALI FACP CCDS Ot 786.50 CHEST PAIN NOS 04/24/2016 DIONICIO AMEZCUA FACC, ALI FACP CCDS Ot V58.69 OTH MED,LT,CURRENT USE 04/24/2016 DIONICIO AMEZCUA FACC, ALI FACP CCDS Ot V85.43 BODY MASS INDEX 50.0-59.9, ADULT 04/24/2016 COLTHRUTH DO, VARSHA A Ot 250.00 DIAB RONAL WO COMPL, TYPE II OR UNSPEC TY 04/24/2016 COLTHRUTH DO, VARSHA A Ot 459.81 VENOUS INSUFFICIENCY NOS 04/24/2016 COLTHRUTH CHRISTINE, VARSHA A Ot 782.3 EDEMA 04/24/2016 DIONICIO AMEZCUA FACC, ALI FACP CCDS Ot 250.00 DIAB RONAL WO COMPL, TYPE II OR UNSPEC TY 04/24/2016 DIONICIO AMEZCUA FACC, FLORIN FACP CCDS Ot 272.4 HYPERLIPIDEMIA NEC/NOS 04/24/2016 DIONICIO AMEZCUA FACC, FLORIN FACP CCDS Ot 278.00 OBESITY, NOS 04/24/2016 DIONICIO AMEZCUA FACC, FLORIN FACP CCDS Ot 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 04/24/2016 DIONICIO AMEZCUA FACC, FLORIN FACP CCDS Ot 459.81 VENOUS INSUFFICIENCY NOS 04/24/2016 DIONICIO AMEZCUA FACC, FLORIN FACP CCDS Ot 729.5 PAIN IN LIMB 04/24/2016 DIONICIO AMEZCUA FACC, FLORIN FACP CCDS Ot 780.57 UNSPECIFIED SLEEP APNEA 04/24/2016 DIONICIO AMEZCUA FACC, FLORIN FACP CCDS Ot 786.09 RESPIRATORY ABNORM NEC 04/24/2016 ALFONSO ESTRADA MD Ot E11.622 TYPE 2 DIABETES MELLITUS WITH OTHER SKIN 04/24/2016 ALFONSO ESTRADA MD Ot E66.01 MORBID (SEVERE) OBESITY DUE TO EXCESS CA 04/24/2016 ALFONSO ESTRADA MD Ot I87.333 CHRONIC VENOUS HTN W ULCER AND INFLAM OF 04/24/2016 ALFONSO ESTRADA MD Ot I89.0 LYMPHEDEMA, NOT ELSEWHERE CLASSIFIED 04/24/2016 ALFONSO ESTRADA MD Ot L97.222 NON-PRESSURE CHRONIC ULCER OF LEFT CALF 04/24/2016 SAM MOBLEY GAMMA RAY OPERATOR Ot 276.7 HYPERPOTASSEMIA 04/24/2016 DIONICIO AMEZCUA FACC, FLORIN BUSTOSP CCDS Ot 250.00 DIAB RONAL WO COMPL, TYPE II OR UNSPEC TY 04/24/2016 DIONICIO AMEZCUA FACC, FLORIN FACP CCDS Ot 276.7 HYPERPOTASSEMIA 04/24/2016 DIONICIO AMEZCUA FACC, FLORIN FACP CCDS Ot 278.00 OBESITY, NOS 04/24/2016 DIONICIO AMEZCUA FACC, FLORIN FACP CCDS Ot 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 04/24/2016 DIONICIO AMEZCUA FACC, FLORIN FACP CCDS Ot 459.81 VENOUS INSUFFICIENCY NOS 04/24/2016 DIONICIO AMEZCUA FACC, FLORIN FACP CCDS Ot 585.3 CHRONIC KIDNEY DISEASE, STAGE III (MODER 04/24/2016 FLORIN GREENBERG MD, FACC FACP CCDS Ot 729.5 PAIN IN LIMB 04/24/2016 DIONICIO AMEZCUA [facility], ALI FACP CCDS Ot 250.00 DIAB RONAL WO COMPL, TYPE II OR UNSPEC TY 04/24/2016 DIONICIO AMEZCUA [facility], ALI FACP CCDS Ot 729.5 PAIN IN LIMB 04/24/2016 SAM MOBLEY GAMMA RAY OPERATOR Ot 250.00 DIAB RONAL WO COMPL, TYPE II OR UNSPEC TY 04/24/2016 SAM MOBLEY L GAMMA RAY OPERATOR Ot 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 04/24/2016 SAM MOBLEY GAMMA RAY OPERATOR Ot 585.3 CHRONIC KIDNEY DISEASE, STAGE III (MODER 04/24/2016 SAM MOBLEY GAMMA RAY OPERATOR Ot 780.57 UNSPECIFIED SLEEP APNEA 04/24/2016 SAM MOBLEY GAMMA RAY OPERATOR Ot 585.3 CHRONIC KIDNEY DISEASE, STAGE III (MODER 04/24/2016 KG CAVAZOS MDINE Ot 250.00 DIAB RONAL WO COMPL, TYPE II OR UNSPEC TY 04/24/2016 ROIHT CAVAZOS MD Ot 272.4 HYPERLIPIDEMIA NEC/NOS 04/24/2016 ROHIT CAVAZOS MD Ot 276.7 HYPERPOTASSEMIA 04/24/2016 ROHIT CAVAZOS MD Ot 278.03 OBESITY HYPOVENTILATION SYNDROME 04/24/2016 ROHIT CAVAZOS MD Ot 327.23 OBSTRUCTIVE SLEEP APNEA (ADULT) (PEDIATR 04/24/2016 ROHIT CAVAZOS MD Ot 403.90 HYPTNSV CHR KID DIS, UNSPEC, W CHR KD ST 04/24/2016 ROHIT CAVAZOS MD Ot 585.2 CHRONIC KIDNEY DISEASE, STAGE II (MILD) 04/24/2016 ROHIT CAVAZOS MD Ot 715.90 OSTEOARTHROS NOS-UNSPEC 04/24/2016 ROHIT CAVAZOS MD Ot 729.1 MYALGIA AND MYOSITIS NOS 04/24/2016 ALFONSO ESTRADA MD Ot E11.622 TYPE 2 DIABETES MELLITUS WITH OTHER SKIN 04/24/2016 ALFONSO ESTRADA MD Ot E66.01 MORBID (SEVERE) OBESITY DUE TO EXCESS CA 04/24/2016 ALFONSO ESTRADA MD Ot I87.333 CHRONIC VENOUS HTN W ULCER AND INFLAM OF 04/24/2016 ALFONSO ESTRADA MD, Ot I89.0 LYMPHEDEMA, NOT ELSEWHERE CLASSIFIED 04/24/2016 ALFONSO ESTRADA MD, Ot L97.222 NON-PRESSURE CHRONIC ULCER OF LEFT CALF 04/24/2016 ALFONSO ESTRADA MD, Ot E11.622 TYPE 2 DIABETES MELLITUS WITH OTHER SKIN 04/24/2016 ALFONSO ESTRADA MD, Ot E66.01 MORBID (SEVERE) OBESITY DUE TO EXCESS CA 04/24/2016 ALFONSO ESTRADA MD, Ot I70.242 ATHSCL TANGIRNAQ ARTERIES OF LEFT LEG W ULC 04/24/2016 ALFONSO ESTRADA MD, Ot I87.333 CHRONIC VENOUS HTN W ULCER AND INFLAM OF 04/24/2016 ALFONSO ESTRADA MD, Ot I89.0 LYMPHEDEMA, NOT ELSEWHERE CLASSIFIED 04/24/2016 ALFONSO ESTRADA MD, Ot L97.222 NON-PRESSURE CHRONIC ULCER OF LEFT CALF 04/24/2016 ALFONSO ESTRADA MD, Ot R22.42 LOCALIZED SWELLING, MASS AND LUMP, LEFT 04/24/2016 TAMIKA HILARIO DO Ot E66.9 OBESITY, UNSPECIFIED 04/24/2016 TAMIKA HILARIO DO Ot G47.30 SLEEP APNEA, UNSPECIFIED 04/24/2016 TAMIKA HILARIO DO Ot R06.09 OTHER FORMS OF DYSPNEA 04/24/2016 YESENIA SANTILLAN APRN Ot E66.9 OBESITY, UNSPECIFIED 04/24/2016 YESENIA SANTILLAN APRN Ot J98.4 OTHER DISORDERS OF LUNG 04/24/2016 YESENIA SANTILLAN APRN Ot R06.09 OTHER FORMS OF DYSPNEA 04/24/2016 ROHIT CAVAZOS MD Ot E11.22 TYPE 2 DIABETES MELLITUS W DIABETIC ARCHITECTURAL PROJECT CAPTAIN 04/24/2016 ROHIT CAVAZOS MD Ot E66.2 MORBID (SEVERE) OBESITY WITH ALVEOLAR HY 04/24/2016 ROHIT CAVAZOS MD Ot E78.5 HYPERLIPIDEMIA, UNSPECIFIED 04/24/2016 ROHIT CAVAZOS MD Ot E87.5 HYPERKALEMIA 04/24/2016 ROHIT CAVAZOS MD Ot I12.9 HYPERTENSIVE CHRONIC KIDNEY DISEASE W ST 04/24/2016 ROHIT CAVAZOS MD Ot M19.90 UNSPECIFIED OSTEOARTHRITIS, UNSPECIFIED 04/24/2016 ROHIT CAVAZOS MD Ot M79.7 FIBROMYALGIA 04/24/2016 ROHIT CAVAZOS MD Ot N18.2 CHRONIC KIDNEY DISEASE, STAGE 2 (MILD) 04/24/2016 ROHIT CAVAZOS MD Ot R60.0 LOCALIZED EDEMA 04/24/2016 ROHIT CAVAZOS MD Ot Z86.59 PERSONAL HISTORY OF OTHER MENTAL AND BEH 04/24/2016 SAM MOBLEY GAMMA RAY OPERATOR Ot I10 ESSENTIAL (PRIMARY) HYPERTENSION 04/24/2016 SAM MOBLEY GAMMA RAY OPERATOR Ot R06.09 OTHER FORMS OF DYSPNEA 04/24/2016 NAYELI CAVAZOS MD Ot E11.22 TYPE 2 DIABETES MELLITUS W DIABETIC ARCHITECTURAL PROJECT CAPTAIN 04/24/2016 NAYELI CAVAZOS MD Ot E66.2 MORBID (SEVERE) OBESITY WITH ALVEOLAR HY 04/24/2016 NAYELI CAVAZOS MD Ot E78.5 HYPERLIPIDEMIA, UNSPECIFIED 04/24/2016 NAYELI CAVAZOS MD Ot E87.5 HYPERKALEMIA 04/24/2016 NAYELI CAVAZOS MD S Ot G47.33 OBSTRUCTIVE SLEEP APNEA (ADULT) (PEDIATR 04/24/2016 NAYELI CAVAZOS MD Ot I12.9 HYPERTENSIVE CHRONIC KIDNEY DISEASE W ST 04/24/2016 NAYELI CAVAZOS MD S Ot M19.90 UNSPECIFIED OSTEOARTHRITIS, UNSPECIFIED 04/24/2016 NAYELI CAVAZOS MD S Ot M79.7 FIBROMYALGIA 04/24/2016 NAYELI CAVAZOS MD S Ot N18.2 CHRONIC KIDNEY DISEASE, STAGE 2 (MILD) 04/24/2016 NAYELI CAVAZOS MD Ot R60.0 LOCALIZED EDEMA 04/24/2016 NAYELI CAVAZOS MD Ot Z86.59 PERSONAL HISTORY OF OTHER MENTAL AND BEH 04/24/2016 ROHIT CAVAZOS MD Ot E11.22 TYPE 2 DIABETES MELLITUS W DIABETIC ARCHITECTURAL PROJECT CAPTAIN 04/24/2016 ROHIT CAVAZOS MD Ot E66.2 MORBID (SEVERE) OBESITY WITH ALVEOLAR HY 04/24/2016 ROHIT CAVAZOS MD Ot E78.5 HYPERLIPIDEMIA, UNSPECIFIED 04/24/2016 ROHIT CAVAZOS MD Ot E87.5 HYPERKALEMIA 04/24/2016 ROHIT CAVAZOS MD Ot G47.33 OBSTRUCTIVE SLEEP APNEA (ADULT) (PEDIATR 04/24/2016 ROHIT CAVAZOS MD Ot I12.9 HYPERTENSIVE CHRONIC KIDNEY DISEASE W ST 04/24/2016 ROHIT CAVAZOS MD Ot M19.90 UNSPECIFIED OSTEOARTHRITIS, UNSPECIFIED 04/24/2016 ROHIT CAVAZOS MD Ot M79.7 FIBROMYALGIA 04/24/2016 ROHIT CAVAZOS MD Ot N18.2 CHRONIC KIDNEY DISEASE, STAGE 2 (MILD) 04/24/2016 ROHIT CAVAZOS MD Ot R60.0 LOCALIZED EDEMA 04/24/2016 ROHIT CAVAZOS MD Ot Z86.59 PERSONAL HISTORY OF OTHER MENTAL AND BEH 05/01/2016 ROHIT CAVAZOS MD Ot E11.9 TYPE 2 DIABETES MELLITUS WITHOUT COMPLIC 05/01/2016 ROHIT CAVAZOS MD Ot E66.2 MORBID (SEVERE) OBESITY WITH ALVEOLAR HY 05/01/2016 ROHIT CAVAZOS MD Ot E78.5 HYPERLIPIDEMIA, UNSPECIFIED 05/01/2016 ROHIT CAVAZOS MD Ot E87.5 HYPERKALEMIA 05/01/2016 ROHIT CAVAZOS MD Ot G47.33 OBSTRUCTIVE SLEEP APNEA (ADULT) (PEDIATR 05/01/2016 ROHIT CAVAZOS MD Ot I12.9 HYPERTENSIVE CHRONIC KIDNEY DISEASE W ST 05/01/2016 ROHIT CAVAZOS MD Ot M19.90 UNSPECIFIED OSTEOARTHRITIS, UNSPECIFIED 05/01/2016 ROHIT CAVAZOS MD Ot M79.7 FIBROMYALGIA 05/01/2016 ROHIT CAVAZOS MD Ot N18.2 CHRONIC KIDNEY DISEASE, STAGE 2 (MILD) 05/01/2016 ROHIT CAVAZOS MD Ot R60.0 LOCALIZED EDEMA 05/01/2016 ROHIT CAVAZOS MD Ot Z86.59 PERSONAL HISTORY OF OTHER MENTAL AND BEH 06/04/2016 ROHIT CAVAZOS MD Ot R35.0 FREQUENCY OF MICTURITION 07/03/2016 ROHIT CAVAZOS MD Ot E11.9 TYPE 2 DIABETES MELLITUS WITHOUT COMPLIC 07/03/2016 ROHIT CAVAZOS MD Ot E66.2 MORBID (SEVERE) OBESITY WITH ALVEOLAR HY 07/03/2016 ROHIT CAVAZOS MD Ot E78.5 HYPERLIPIDEMIA, UNSPECIFIED 07/03/2016 ROHIT CAVAZOS MD Ot E87.5 HYPERKALEMIA 07/03/2016 ROHIT CAVAZOS MD Ot I12.9 HYPERTENSIVE CHRONIC KIDNEY DISEASE W ST 07/03/2016 ROHIT CAVAZOS MD Ot M19.90 UNSPECIFIED OSTEOARTHRITIS, UNSPECIFIED 07/03/2016 ROHIT CAVAZOS MD Ot M79.7 FIBROMYALGIA 07/03/2016 ROHIT CAVAZOS MD Ot N18.2 CHRONIC KIDNEY DISEASE, STAGE 2 (MILD) 07/03/2016 ROHIT CAVAZOS MD Ot R60.0 LOCALIZED EDEMA 07/16/2016 ROHIT CAVAZOS MD Ot E11.9 TYPE 2 DIABETES MELLITUS WITHOUT COMPLIC 07/16/2016 ROHIT CAVAZOS MD Ot E66.2 MORBID (SEVERE) OBESITY WITH ALVEOLAR HY 07/16/2016 ROHIT CAVAZOS MD Ot E78.5 HYPERLIPIDEMIA, UNSPECIFIED 07/16/2016 ROHIT CAVAZOS MD Ot E87.5 HYPERKALEMIA 07/16/2016 ROHIT CAVAZOS MD Ot I12.9 HYPERTENSIVE CHRONIC KIDNEY DISEASE W ST 07/16/2016 ROHIT CAVAZOS MD Ot M19.90 UNSPECIFIED OSTEOARTHRITIS, UNSPECIFIED 07/16/2016 ROHIT CAVAZOS MD Ot M79.7 FIBROMYALGIA 07/16/2016 ROHIT CAVAZOS MD Ot N18.2 CHRONIC KIDNEY DISEASE, STAGE 2 (MILD) 07/16/2016 ROHIT CAVAZOS MD Ot R60.0 LOCALIZED EDEMA 07/30/2016 ROHIT CAVAZOS MD Ot R35.0 FREQUENCY OF MICTURITION 04/10/2017 ROHIT CAVAZOS MD Ot E11.9 TYPE 2 DIABETES MELLITUS WITHOUT COMPLIC 04/10/2017 ROHIT CAVAZOS MD Ot E66.2 MORBID (SEVERE) OBESITY WITH ALVEOLAR HY 04/10/2017 ROHIT CAVAZOS MD Ot E78.5 HYPERLIPIDEMIA, UNSPECIFIED 04/10/2017 ROHIT CAVAZOS MD Ot E87.5 HYPERKALEMIA 04/10/2017 ROHIT CAVAZOS MD Ot E87.6 HYPOKALEMIA 04/10/2017 ROHIT CAVAZOS MD Ot G47.33 OBSTRUCTIVE SLEEP APNEA (ADULT) (PEDIATR 04/10/2017 ROHIT CAVAZOS MD Ot I12.9 HYPERTENSIVE CHRONIC KIDNEY DISEASE W ST 04/10/2017 ROHIT CAVAZOS MD Ot M19.90 UNSPECIFIED OSTEOARTHRITIS, UNSPECIFIED 04/10/2017 ROHIT CAVAZOS MD Ot M79.7 FIBROMYALGIA 04/10/2017 ROIHT CAVAZOS MD Ot N18.2 CHRONIC KIDNEY DISEASE, STAGE 2 (MILD) 04/10/2017 ROHIT CAVAZOS MD Ot N39.0 URINARY TRACT INFECTION, SITE NOT SPECIF 04/10/2017 ROHIT CAVAZOS MD Ot R60.0 LOCALIZED EDEMA 04/10/2017 ROHIT CAVAZOS MD Ot Z86.59 PERSONAL HISTORY OF OTHER MENTAL AND BEH 04/17/2017 ROHIT CAVAZOS MD Ot E11.9 TYPE 2 DIABETES MELLITUS WITHOUT COMPLIC 04/17/2017 ROHIT CAVAZOS MD Ot E66.2 MORBID (SEVERE) OBESITY WITH ALVEOLAR HY 04/17/2017 ROHIT CAVAZOS MD Ot E78.5 HYPERLIPIDEMIA, UNSPECIFIED 04/17/2017 ROHIT CAVAZOS MD Ot E87.5 HYPERKALEMIA 04/17/2017 ROHIT CAVAZOS MD Ot E87.6 HYPOKALEMIA 04/17/2017 ROHIT CAVAZOS MD Ot I12.9 HYPERTENSIVE CHRONIC KIDNEY DISEASE W ST 04/17/2017 ROHIT CAVAZOS MD Ot M79.7 FIBROMYALGIA 04/17/2017 ROHIT CAVAZOS MD Ot N18.2 CHRONIC KIDNEY DISEASE, STAGE 2 (MILD) 04/17/2017 ROHIT CAVAZOS MD Ot N39.0 URINARY TRACT INFECTION, SITE NOT SPECIF 04/17/2017 ROHIT CAVAZOS MD Ot R60.0 LOCALIZED EDEMA 04/17/2017 ROHIT CVAAZOS MD Ot Z86.59 PERSONAL HISTORY OF OTHER MENTAL AND BEH 07/22/2017 DIONICIO AMEZCUA FACC, FLORIN FACP CCDS Ot E11.9 TYPE 2 DIABETES MELLITUS WITHOUT COMPLIC 07/22/2017 DIONICIO AMEZCUA FACC, ALI FACP CCDS Ot E66.09 OTHER OBESITY DUE TO EXCESS CALORIES 07/22/2017 DIONICIO AMEZCUA FACC, ALI FACP CCDS Ot G47.33 OBSTRUCTIVE SLEEP APNEA (ADULT) (PEDIATR 07/22/2017 DIONICIO AMEZCUA FACC, ALI FACP CCDS Ot I11.9 HYPERTENSIVE HEART DISEASE WITHOUT HEART 07/22/2017 DIONICIO AMEZCUA FACC, FLORIN FACP CCDS Ot R06.09 OTHER FORMS OF DYSPNEA 07/22/2017 DIONICIO AMEZCUA FACC, FLORIN FACP CCDS Ot R07.9 CHEST PAIN, UNSPECIFIED 07/27/2017 ROHIT CAVAZOS MD Ot E11.22 TYPE 2 DIABETES MELLITUS W DIABETIC ARCHITECTURAL PROJECT CAPTAIN 07/27/2017 ROHIT CAVAZOS MD Ot E66.2 MORBID (SEVERE) OBESITY WITH ALVEOLAR HY 07/27/2017 ROHIT CAVAZOS MD Ot E78.5 HYPERLIPIDEMIA, UNSPECIFIED 07/27/2017 ROHIT CAVAZOS MD Ot E87.5 HYPERKALEMIA 07/27/2017 ROHIT CAVAZOS MD Ot E87.6 HYPOKALEMIA 07/27/2017 ROHIT CAVAZOS MD Ot I12.9 HYPERTENSIVE CHRONIC KIDNEY DISEASE W ST 07/27/2017 ROHIT CAVAZOS MD Ot M79.7 FIBROMYALGIA 07/27/2017 ROHIT CAVAZOS MD Ot N18.2 CHRONIC KIDNEY DISEASE, STAGE 2 (MILD) 07/27/2017 ROHIT CAVAZOS MD Ot N39.0 URINARY TRACT INFECTION, SITE NOT SPECIF 07/27/2017 ROHIT CAVAZOS MD Ot R60.0 LOCALIZED EDEMA 07/27/2017 ROHIT CAVAZOS MD Ot Z86.59 PERSONAL HISTORY OF OTHER MENTAL AND BEH 08/07/2017 DIONICIO AMEZCUA FACC, FLORIN FACP CCDS Ot E11.9 TYPE 2 DIABETES MELLITUS WITHOUT COMPLIC 08/07/2017 DIONICIO AMEZCUA FACC, FLORIN FACP CCDS Ot E66.09 OTHER OBESITY DUE TO EXCESS CALORIES 08/07/2017 DIONICIO AMEZCUA FACC, FLORIN FACP CCDS Ot G47.33 OBSTRUCTIVE SLEEP APNEA (ADULT) (PEDIATR 08/07/2017 DIONICIO AMEZCUA FACC, FLORIN FACP CCDS Ot I11.9 HYPERTENSIVE HEART DISEASE WITHOUT HEART 08/07/2017 DIONICIO AMEZCUA FACC, FLORIN FACP CCDS Ot R06.09 OTHER FORMS OF DYSPNEA 08/07/2017 DIONICIO AMEZCUA FACC, FLORIN FACP CCDS Ot R07.9 CHEST PAIN, UNSPECIFIED 08/07/2017 ROHIT CAVAZOS MD Ot E11.22 TYPE 2 DIABETES MELLITUS W DIABETIC ARCHITECTURAL PROJECT CAPTAIN 08/07/2017 ROHIT CAVAZOS MD Ot E66.2 MORBID (SEVERE) OBESITY WITH ALVEOLAR HY 08/07/2017 ROHIT CAVAZOS MD Ot E78.5 HYPERLIPIDEMIA, UNSPECIFIED 08/07/2017 ROHIT CAVAZOS MD Ot E87.5 HYPERKALEMIA 08/07/2017 ROHIT CAVAZOS MD Ot E87.6 HYPOKALEMIA 08/07/2017 ROHIT CAVAZOS MD Ot I12.9 HYPERTENSIVE CHRONIC KIDNEY DISEASE W ST 08/07/2017 ROHIT CAVAZOS MD Ot M79.7 FIBROMYALGIA 08/07/2017 ROHIT CAVAZOS MD Ot N18.2 CHRONIC KIDNEY DISEASE, STAGE 2 (MILD) 08/07/2017 ROHIT CAVAZOS MD Ot N39.0 URINARY TRACT INFECTION, SITE NOT SPECIF 08/07/2017 ROHIT CAVAZOS MD Ot R60.0 LOCALIZED EDEMA 08/07/2017 ROHIT CAVAZOS MD Ot Z86.59 PERSONAL HISTORY OF OTHER MENTAL AND BEH Procedures Code Description [place] [address] ROUTINE VENIPUNCTURE 02/23/2012 09225 CMP 02/23/2012 63845 LIPID PANEL 02/23/20126928021 GFR CALC (RESULT ONLY) 02/23/2012 51262 DEBRIDE NAIL 1-5 05/07/2012 81907 A1C (IN-HOUSE) 06/14/2012 29468 ROUTINE VENIPUNCTURE 07/16/2012 72348 CMP 07/16/2012 [id number] GFR CALC (RESULT ONLY) 07/16/2012 50652 ROUTINE VENIPUNCTURE 08/06/2012 14274 MYOGLOBIN 08/06/2012 58836 ROUTINE VENIPUNCTURE 08/23/2012 05856 CMP 08/23/2012 39966 LIPID PANEL 08/23/2012 [id number] GFR CALC (RESULT ONLY) 08/23/2012 91333 DEBRIDE NAIL 1-5 09/10/2012 56971 ROUTINE VENIPUNCTURE 10/15/2012 60929 CMP 10/15/2012 38501 LIPID PANEL 10/15/2012 [id number] GFR CALC (RESULT ONLY) 10/15/2012 11693 A1C (IN-HOUSE) 10/19/2012 43721 DEBRIDE NAIL >6 12/10/2012 86462 ROUTINE VENIPUNCTURE 12/31/2012 17036 CMP 12/31/2012 68651 LIPID PANEL 12/31/2012 [id number] GFR CALC (RESULT ONLY) 12/31/2012 80597 A1C (IN-HOUSE) 02/01/2013 69721 ROUTINE VENIPUNCTURE 03/10/2013 42097 LIPID PANEL 03/10/2013 26541 TSH 03/10/2013 45364 A1C (IN-HOUSE) 05/10/2013 85166 ROUTINE VENIPUNCTURE 08/09/2013 22659 A1C (IN-HOUSE) 08/09/2013 41106 CMP 08/09/2013 83845 LIPID PANEL 08/09/2013 [id number] GFR CALC (RESULT ONLY) 08/09/2013 83976 ROUTINE VENIPUNCTURE 10/25/2013 [id number] GFR CALC (RESULT ONLY) 10/25/2013 38840 CMP 10/25/2013 87683 LIPID PANEL 10/25/2013 66904 TSH 10/25/2013 25477 A1C (IN-HOUSE) 12/05/2013 17307 ROUTINE VENIPUNCTURE 03/08/2014 79952 BNP 03/08/2014 91733 A1C (IN-HOUSE) 03/08/2014 [id number] GFR CALC (RESULT ONLY) 03/08/2014 62550 BMP 03/08/2014 Results Test Result Range Serum or plasma renal function panel (Na, K, Cl, CO2, BUN, Cr, glucose,Ca, phos , alb) - 12/17/15 15:29 Serum or plasma sodium measurement (moles/volume) 139 mmol/L 135-145 Serum or plasma potassium measurement (moles/volume) 4.0 mmol/L 3.6-5.0 Serum or plasma chloride measurement (moles/volume) 100 mmol/L 98-107 Carbon dioxide 26 mmol/L 21-32 Serum or plasma anion gap determination (moles/volume) 13 mmol/L 5-14 Serum or plasma urea nitrogen measurement (mass/volume) 14 mg/dL 7-18 Serum or plasma creatinine measurement (mass/volume) 1.14 mg/dL 0.60-1.30 Serum or plasma urea nitrogen/creatinine mass ratio 12 NRG Serum or plasma creatinine measurement with calculation of estimated glomerular filtration rate > NRG Serum or plasma glucose measurement (mass/volume) 137 mg/dL 70-105 Serum or plasma calcium measurement (mass/volume) 10.4 mg/dL 8.5-10.1 Serum or plasma albumin measurement (mass/volume) 4.3 g/dL 3.2-4.5 Serum or plasma phosphate measurement (mass/volume) 4.1 mg/dL 2.3-4.7 Serum or plasma uric acid measurement (mass/volume) - 12/17/15 15:29 Serum or plasma uric acid measurement (mass/volume) 7.2 mg/dL 2.6-7.2 Complete urinalysis with reflex to culture - 12/21/15 13:00 Urine color determination YELLOW NRG Urine clarity determination SLIGHTLY CLOUDY NRG Urine pH measurement by test strip 5 5-9 Specific gravity of urine by test strip 1.020 1.016- 1.022 Urine protein assay by test strip, semi-quantitative 1+ NEGATIVE Urine glucose detection by automated test strip 4+ NEGATIVE Erythrocytes detection in urine sediment by light microscopy 4+ NEGATIVE Urine ketones detection by automated test strip NEGATIVE NEGATIVE Urine nitrite detection by test strip POSITIVE NEGATIVE Urine total bilirubin detection by test strip NEGATIVE NEGATIVE Urine urobilinogen measurement by automated test strip (mass/volume) NORMAL NORMAL Urine leukocyte esterase detection by dipstick 2+ NEGATIVE Automated urine sediment erythrocyte count by microscopy (number/high power field) [HPF] NRG Automated urine sediment leukocyte count by microscopy (number/high power field ) [HPF] NRG Bacteria detection in urine sediment by light microscopy LARGE NRG Squamous epithelial cells detection in urine sediment by light microscopy NONE NRG Crystals detection in urine sediment by light microscopy NONE NRG Casts detection in urine sediment by light microscopy NONE NRG Mucus detection in urine sediment by light microscopy NEGATIVE NRG Complete urinalysis with reflex to culture YES NRG Bacterial urine culture - 12/21/15 13:00 Bacterial urine culture [id number] NRG COLONY COUNT >100,000/ML NRG FTX;REPORTABLE [facility] Bacterial susceptibility panel - 12/21/15 13:00 Gentamicin susceptibility test by minimum inhibitory concentration > = NRG Trimethoprim/sulfamethoxazole susceptibility test by minimum inhibitoryconcentration >= NRG Ampicillin susceptibility test by minimum inhibitory concentration > = NRG Tobramycin susceptibility test by minimum inhibitory concentration 8 NRG Cefazolin susceptibility test by minimum inhibitory concentration < = NRG Ceftriaxone susceptibility test by minimum inhibitory concentration <= NRG Ampicillin/sulbactam susceptibility test by minimum inhibitory concentration 16 NRG Piperacillin/tazobactam susceptibility test by minimum inhibitory concentration <= NRG Ciprofloxacin susceptibility test by minimum inhibitory concentration >= NRG Meropenem susceptibility test by minimum inhibitory concentration < = NRG Nitrofurantoin susceptibility test by minimum inhibitory concentration <= NRG Aztreonam susceptibility test by minimum inhibitory concentration < = NRG Extended spectrum beta lactamase (ESBL) producing bacteria susceptibility test by minimum inhibitory concentration - NRG Amikacin susceptibility test by minimum inhibitory concentration S NRG Urine microalbumin measurement by test strip (mass/volume) - 12/21/15 13:00 Urine creatinine measurement (mass/volume) 107 % NRG Microalbumin [mass/volume] in urine 66.6 % 0.0-20.0 Microalbumin/creatinine [ratio] in urine 62.2 mg/g{Cre} 0.0-30.0 Automated blood complete blood count (hemogram) panel - 04/24/16 13:55 Blood leukocytes automated count (number/volume) 7.7 10*3/uL 4.3-11.0 Blood erythrocytes automated count (number/volume) 5.08 10*6/uL 4.35-5.85 Venous blood hemoglobin measurement (mass/volume) 14.8 g/dL 13.3-17.7 Blood hematocrit (volume fraction) 44 % 40-54 Automated erythrocyte mean corpuscular volume 87 [foz_us] 80-99 Automated erythrocyte mean corpuscular hemoglobin (mass per erythrocyte) 29 pg 25-34 Automated erythrocyte mean corpuscular hemoglobin concentration measurement ( mass/volume) 33 g/dL 32-36 Automated erythrocyte distribution width ratio 14.9 % 10.0-14.5 Automated blood platelet count (count/volume) 166 10*3/uL 130-400 Automated blood platelet mean volume measurement 10.0 [foz_us] 7.4-10.4 Serum or plasma renal function panel (Na, K, Cl, CO2, BUN, Cr, glucose,Ca, phos , alb) - 04/24/16 13:55 Serum or plasma sodium measurement (moles/volume) 138 mmol/L 135-145 Serum or plasma potassium measurement (moles/volume) 2.9 mmol/L 3.6-5.0 Serum or plasma chloride measurement (moles/volume) 95 mmol/L 98-107 Carbon dioxide 29 mmol/L 21-32 Serum or plasma anion gap determination (moles/volume) 14 mmol/L 5-14 Serum or plasma urea nitrogen measurement (mass/volume) 20 mg/dL 7-18 Serum or plasma creatinine measurement (mass/volume) 1.39 mg/dL 0.60-1.30 Serum or plasma urea nitrogen/creatinine mass ratio 14 NRG Serum or plasma creatinine measurement with calculation of estimated glomerular filtration rate 52 NRG Serum or plasma glucose measurement (mass/volume) 216 mg/dL 70-105 Serum or plasma calcium measurement (mass/volume) 9.9 mg/dL 8.5-10.1 Serum or plasma albumin measurement (mass/volume) 4.2 g/dL 3.2-4.5 Serum or plasma phosphate measurement (mass/volume) 3.5 mg/dL 2.3-4.7 Serum or plasma intact pararthyroid hormone measurement (mass/volume) - 13:55 Serum or plasma intact parathyroid hormone measurement (mass/volume) 47 pg/mL 10-65 Bio-intact parathyroid hormone (PTH) measurement with calcium 9.8 % 8.5-10.5 25-hydroxyvitamin D measurement - 04/24/16 13:55 25-hydroxy vitamin D measurement 31 % 30-100 Urine protein/creatinine mass ratio - 04/26/16 15:28 Urine protein measurement (mass/volume) 11 mg/dL 6-12 Urine creatinine measurement (mass/volume) 72 mg/dL 30- 125 Urine protein/creatinine mass ratio 0.15 NRG Complete urinalysis with reflex to culture - 05/01/16 15:30 Urine color determination YELLOW NRG Urine clarity determination SLIGHTLY CLOUDY NRG Urine pH measurement by test strip 6 5-9 Specific gravity of urine by test strip 1.015 1.016- 1.022 Urine protein assay by test strip, semi-quantitative 1+ NEGATIVE Urine glucose detection by automated test strip 4+ NEGATIVE Erythrocytes detection in urine sediment by light microscopy 1+ NEGATIVE Urine ketones detection by automated test strip NEGATIVE NEGATIVE Urine nitrite detection by test strip POSITIVE NEGATIVE Urine total bilirubin detection by test strip NEGATIVE NEGATIVE Urine urobilinogen measurement by automated test strip (mass/volume) NORMAL NORMAL Urine leukocyte esterase detection by dipstick 2+ NEGATIVE Automated urine sediment erythrocyte count by microscopy (number/high power field) [HPF] NRG Automated urine sediment leukocyte count by microscopy (number/high power field ) TNTC NRG Bacteria detection in urine sediment by light microscopy LARGE NRG Crystals detection in urine sediment by light microscopy NONE NRG Casts detection in urine sediment by light microscopy NONE NRG Mucus detection in urine sediment by light microscopy NEGATIVE NRG Complete urinalysis with reflex to culture NO NRG Bacterial urine culture - 05/01/16 15:30 Bacterial urine culture [id number] NRG COLONY COUNT 10,000/ML - 100,000/ML NRG FTX;REPORTABLE SENSITIVITY REPORTED 05/03/15 11:30 NRG Bacterial susceptibility panel - 05/01/16 15:30 Gentamicin susceptibility test by minimum inhibitory concentration > = NRG Trimethoprim/sulfamethoxazole susceptibility test by minimum inhibitoryconcentration >= NRG Ampicillin susceptibility test by minimum inhibitory concentration > = NRG Tobramycin susceptibility test by minimum inhibitory concentration 4 NRG Cefazolin susceptibility test by minimum inhibitory concentration < = NRG Ceftriaxone susceptibility test by minimum inhibitory concentration <= NRG Ampicillin/sulbactam susceptibility test by minimum inhibitory concentration >= NRG Piperacillin/tazobactam susceptibility test by minimum inhibitory concentration <= NRG Ciprofloxacin susceptibility test by minimum inhibitory concentration >= NRG Meropenem susceptibility test by minimum inhibitory concentration < = NRG Nitrofurantoin susceptibility test by minimum inhibitory concentration <= NRG Aztreonam susceptibility test by minimum inhibitory concentration < = NRG Extended spectrum beta lactamase (ESBL) producing bacteria susceptibility test by minimum inhibitory concentration - NR CBC With Differential/Platelet - 06/04/16 12:05 WBC 6.1 x10E3/uL 3.4-10.8 RBC 4.71 x10E6/uL 4.14-5.80 Hemoglobin 13.4 g/dL 12.6-17.7 Hematocrit 41.4 % 37.5-51.0 MCV 88 fL 79-97 MCH 28.5 pg 26.6-33.0 MCHC 32.4 g/dL 31.5-35.7 RDW 15.2 % 12.3-15.4 Platelets 144 x10E3/uL 150-379 Neutrophils 69 % Lymphs 21 % Monocytes 5 % Eos 4 % Basos 1 % Neutrophils (Absolute) 4.2 x10E3/uL 1.4-7.0 Lymphs (Absolute) 1.3 x10E3/uL 0.7-3.1 Monocytes(Absolute) 0.3 x10E3/uL 0.1-0.9 Eos (Absolute) 0.2 x10E3/uL 0.0-0.4 Baso (Absolute) 0.0 x10E3/uL 0.0-0.2 Immature Granulocytes 0 % Immature Grans (Abs) 0.0 x10E3/uL 0.0-0.1 Comp. Metabolic Panel (14) - 06/04/16 12:05 Glucose, Serum 159 mg/dL 65-99 BUN 11 mg/dL 8-27 Creatinine, Serum 1.14 mg/dL 0.76-1.27 eGFR If NonAfricn Am 70 mL/min/1.73 >59 eGFR If Africn Am 80 mL/min/1.73 >59 BUN/Creatinine Ratio 10 10-22 Sodium, Serum 142 mmol/L 134-144 Potassium, Serum 3.9 mmol/L 3.5-5.2 Chloride, Serum 98 mmol/L 96-106 Carbon Dioxide, Total 25 mmol/L 18-29 Calcium, Serum 9.3 mg/dL 8.6-10.2 Protein, Total, Serum 6.3 g/dL 6.0-8.5 Albumin, Serum 3.9 g/dL 3.6-4.8 Globulin, Total 2.4 g/dL 1.5-4.5 A/G Ratio 1.6 1.1-2.5 Bilirubin, Total 0.7 mg/dL 0.0-1.2 Alkaline Phosphatase, S 88 IU/L 39-117 AST (SGOT) 19 IU/L 0-40 ALT (SGPT) 17 IU/L 0-44 Lipid Panel - 06/04/16 12:05 Cholesterol, Total 146 mg/dL 100-199 Triglycerides 175 mg/dL 0-149 HDL Cholesterol 43 mg/dL >39 VLDL Cholesterol [place] 35 mg/dL 5-40 LDL Cholesterol Calc 68 mg/dL 0-99 Urine Culture, Routine - 06/04/16 12:05 Urine Culture, Routine Note Uric Acid, Serum - 06/04/16 12:05 Uric Acid, Serum 7.0 mg/dL 3.7-8.6 Complete urinalysis with reflex to culture - 07/03/16 13:20 Urine color determination YELLOW NRG Urine clarity determination SLIGHTLY CLOUDY NRG Urine pH measurement by test strip 6 5-9 Specific gravity of urine by test strip 1.020 1.016- 1.022 Urine protein assay by test strip, semi-quantitative 1+ NEGATIVE Urine glucose detection by automated test strip NEGATIVE NEGATIVE Erythrocytes detection in urine sediment by light microscopy 2+ NEGATIVE Urine ketones detection by automated test strip NEGATIVE NEGATIVE Urine nitrite detection by test strip POSITIVE NEGATIVE Urine total bilirubin detection by test strip NEGATIVE NEGATIVE Urine urobilinogen measurement by automated test strip (mass/volume) NORMAL NORMAL Urine leukocyte esterase detection by dipstick 2+ NEGATIVE Automated urine sediment erythrocyte count by microscopy (number/high power field) [HPF] NRG Automated urine sediment leukocyte count by microscopy (number/high power field ) [HPF] NRG Bacteria detection in urine sediment by light microscopy LARGE NRG Squamous epithelial cells detection in urine sediment by light microscopy RARE NRG Crystals detection in urine sediment by light microscopy NONE NRG Casts detection in urine sediment by light microscopy NONE NRG Mucus detection in urine sediment by light microscopy NEGATIVE NRG Complete urinalysis with reflex to culture YES NRG Urine microalbumin measurement by test strip (mass/volume) - 07/03/16 13:20 Urine creatinine measurement (mass/volume) 100 % NRG Microalbumin [mass/volume] in urine 37.6 % 0.0-20.0 Microalbumin/creatinine [ratio] in urine 37.6 mg/g{Cre} 0.0-30.0 Bacterial urine culture - 07/03/16 13:20 Bacterial urine culture FOOTNOTE NRG Serum or plasma renal function panel (Na, K, Cl, CO2, BUN, Cr, glucose,Ca, phos , alb) - 07/03/16 13:26 Serum or plasma sodium measurement (moles/volume) 140 mmol/L 135-145 Serum or plasma potassium measurement (moles/volume) 4.4 mmol/L 3.6-5.0 Serum or plasma chloride measurement (moles/volume) 103 mmol/L 98-107 Carbon dioxide 25 mmol/L 21-32 Serum or plasma anion gap determination (moles/volume) 12 mmol/L 5-14 Serum or plasma urea nitrogen measurement (mass/volume) 14 mg/dL 7-18 Serum or plasma creatinine measurement (mass/volume) 1.19 mg/dL 0.60-1.30 Serum or plasma urea nitrogen/creatinine mass ratio 12 NRG Serum or plasma creatinine measurement with calculation of estimated glomerular filtration rate > NRG Serum or plasma glucose measurement (mass/volume) 168 mg/dL 70-105 Serum or plasma calcium measurement (mass/volume) 9.6 mg/dL 8.5-10.1 Serum or plasma albumin measurement (mass/volume) 4.2 g/dL 3.2-4.5 Serum or plasma phosphate measurement (mass/volume) 3.1 mg/dL 2.3-4.7 Serum or plasma uric acid measurement (mass/volume) - 07/03/16 13:26 Serum or plasma uric acid measurement (mass/volume) 8.1 mg/dL 2.6-7.2 Complete urinalysis with reflex to culture - 03/23/17 14:30 Urine color determination YELLOW NRG Urine clarity determination CLEAR NRG Urine pH measurement by test strip 5 5-9 Specific gravity of urine by test strip 1.015 1.016- 1.022 Urine protein assay by test strip, semi-quantitative NEGATIVE NEGATIVE Urine glucose detection by automated test strip 3+ NEGATIVE Erythrocytes detection in urine sediment by light microscopy 1+ NEGATIVE Urine ketones detection by automated test strip NEGATIVE NEGATIVE Urine nitrite detection by test strip NEGATIVE NEGATIVE Urine total bilirubin detection by test strip NEGATIVE NEGATIVE Urine urobilinogen measurement by automated test strip (mass/volume) NORMAL NORMAL Urine leukocyte esterase detection by dipstick 3+ NEGATIVE Automated urine sediment erythrocyte count by microscopy (number/high power field) NONE NRG Automated urine sediment leukocyte count by microscopy (number/high power field ) [HPF] NRG Bacteria detection in urine sediment by light microscopy LARGE NRG Squamous epithelial cells detection in urine sediment by light microscopy NONE NRG Crystals detection in urine sediment by light microscopy NONE NRG Casts detection in urine sediment by light microscopy NONE NRG Mucus detection in urine sediment by light microscopy NEGATIVE NRG Complete urinalysis with reflex to culture YES NRG Urine protein/creatinine mass ratio - 03/23/17 14:30 Urine protein measurement (mass/volume) 15 mg/dL 6-12 Urine creatinine measurement (mass/volume) 99 mg/dL 30- 125 Urine protein/creatinine mass ratio 0.15 NRG Bacterial urine culture - 03/23/17 14:30 Bacterial urine culture [id number] NRG COLONY COUNT >100,000/ML NRG FTX;REPORTABLE SENSITIVITY REPORTED 03/25/17 8:00 NRG Bacterial susceptibility panel - 03/23/17 14:30 Gentamicin susceptibility test by minimum inhibitory concentration > = NRG Trimethoprim/sulfamethoxazole susceptibility test by minimum inhibitoryconcentration R NRG Ampicillin susceptibility test by minimum inhibitory concentration > = NRG Tobramycin susceptibility test by minimum inhibitory concentration 2 NRG Cefazolin susceptibility test by minimum inhibitory concentration < = NRG Ceftriaxone susceptibility test by minimum inhibitory concentration <= NRG Ampicillin/sulbactam susceptibility test by minimum inhibitory concentration R NRG Piperacillin/tazobactam susceptibility test by minimum inhibitory concentration <= NRG Ciprofloxacin susceptibility test by minimum inhibitory concentration >= NRG Meropenem susceptibility test by minimum inhibitory concentration < = NRG Nitrofurantoin susceptibility test by minimum inhibitory concentration <= NRG Aztreonam susceptibility test by minimum inhibitory concentration < = NRG Extended spectrum beta lactamase (ESBL) producing bacteria susceptibility test by minimum inhibitory concentration - NR Automated blood complete blood count (hemogram) panel - 03/23/17 14:50 Blood leukocytes automated count (number/volume) 9.3 10*3/uL 4.3-11.0 Blood erythrocytes automated count (number/volume) 5.04 10*6/uL 4.35-5.85 Venous blood hemoglobin measurement (mass/volume) 14.3 g/dL 13.3-17.7 Blood hematocrit (volume fraction) 43 % 40-54 Automated erythrocyte mean corpuscular volume 86 [foz_us] 80-99 Automated erythrocyte mean corpuscular hemoglobin (mass per erythrocyte) 28 pg 25-34 Automated erythrocyte mean corpuscular hemoglobin concentration measurement ( mass/volume) 33 g/dL 32-36 Automated erythrocyte distribution width ratio 14.9 % 10.0-14.5 Automated blood platelet count (count/volume) 182 10*3/uL 130-400 Automated blood platelet mean volume measurement 9.7 [foz_us] 7.4-10.4 Serum or plasma renal function panel (Na, K, Cl, CO2, BUN, Cr, glucose,Ca, phos , alb) - 03/23/17 14:50 Serum or plasma sodium measurement (moles/volume) 138 mmol/L 135-145 Serum or plasma potassium measurement (moles/volume) 2.9 mmol/L 3.6-5.0 Serum or plasma chloride measurement (moles/volume) 93 mmol/L 98-107 Carbon dioxide 30 mmol/L 21-32 Serum or plasma anion gap determination (moles/volume) 15 mmol/L 5-14 Serum or plasma urea nitrogen measurement (mass/volume) 20 mg/dL 7-18 Serum or plasma creatinine measurement (mass/volume) 1.31 mg/dL 0.60-1.30 Serum or plasma urea nitrogen/creatinine mass ratio 15 NRG Serum or plasma creatinine measurement with calculation of estimated glomerular filtration rate 56 NRG Serum or plasma glucose measurement (mass/volume) 289 mg/dL 70-105 Serum or plasma calcium measurement (mass/volume) 9.5 mg/dL 8.5-10.1 Serum or plasma albumin measurement (mass/volume) 4.1 g/dL 3.2-4.5 Serum or plasma phosphate measurement (mass/volume) 2.9 mg/dL 2.3-4.7 Serum or plasma intact pararthyroid hormone measurement (mass/volume) - 14:50 Serum or plasma intact parathyroid hormone measurement (mass/volume) 122.0 pg/mL 10.0-65.0 Bio-intact parathyroid hormone (PTH) measurement with calcium 9.4 % 8.5-10.5 25-hydroxyvitamin D measurement - 03/23/17 14:50 25-hydroxy vitamin D measurement 36 % 30-100 Complete urinalysis with reflex to culture - 04/03/17 11:00 Urine color determination YELLOW NRG Urine clarity determination VERY CLOUDY NRG Urine pH measurement by test strip 5 5-9 Specific gravity of urine by test strip 1.020 1.016- 1.022 Urine protein assay by test strip, semi-quantitative 1+ NEGATIVE Urine glucose detection by automated test strip 4+ NEGATIVE Erythrocytes detection in urine sediment by light microscopy 1+ NEGATIVE Urine ketones detection by automated test strip NEGATIVE NEGATIVE Urine nitrite detection by test strip NEGATIVE NEGATIVE Urine total bilirubin detection by test strip NEGATIVE NEGATIVE Urine urobilinogen measurement by automated test strip (mass/volume) NORMAL NORMAL Urine leukocyte esterase detection by dipstick 3+ NEGATIVE Automated urine sediment erythrocyte count by microscopy (number/high power field) RARE NRG Automated urine sediment leukocyte count by microscopy (number/high power field ) [HPF] NRG Bacteria detection in urine sediment by light microscopy LARGE NRG Crystals detection in urine sediment by light microscopy NONE NRG Casts detection in urine sediment by light microscopy NONE NRG Mucus detection in urine sediment by light microscopy NEGATIVE NRG Complete urinalysis with reflex to culture NO NRG Bacterial urine culture - 04/03/17 11:00 Bacterial urine culture [id number] NRG COLONY COUNT 10,000/ML - 100,000/ML NRG FTX;REPORTABLE SENSITIVITY REPORTED 04/05 08:45 NR Bacterial susceptibility panel - 04/03/17 11:00 Gentamicin susceptibility test by minimum inhibitory concentration > = NRG Trimethoprim/sulfamethoxazole susceptibility test by minimum inhibitoryconcentration R NRG Ampicillin susceptibility test by minimum inhibitory concentration > = NRG Tobramycin susceptibility test by minimum inhibitory concentration S NRG Cefazolin susceptibility test by minimum inhibitory concentration < = NRG Ceftriaxone susceptibility test by minimum inhibitory concentration <= NRG Ampicillin/sulbactam susceptibility test by minimum inhibitory concentration R NRG Piperacillin/tazobactam susceptibility test by minimum inhibitory concentration <= NRG Ciprofloxacin susceptibility test by minimum inhibitory concentration >= NRG Meropenem susceptibility test by minimum inhibitory concentration < = NRG Nitrofurantoin susceptibility test by minimum inhibitory concentration <= NRG Aztreonam susceptibility test by minimum inhibitory concentration < = NRG Extended spectrum beta lactamase (ESBL) producing bacteria susceptibility test by minimum inhibitory concentration - NRG Complete urinalysis with reflex to culture - 07/22/17 14:30 Urine color determination YELLOW NRG Urine clarity determination CLEAR NRG Urine pH measurement by test strip 5 5-9 Specific gravity of urine by test strip 1.015 1.016- 1.022 Urine protein assay by test strip, semi-quantitative 1+ NEGATIVE Urine glucose detection by automated test strip 4+ NEGATIVE Erythrocytes detection in urine sediment by light microscopy 1+ NEGATIVE Urine ketones detection by automated test strip NEGATIVE NEGATIVE Urine nitrite detection by test strip POSITIVE NEGATIVE Urine total bilirubin detection by test strip NEGATIVE NEGATIVE Urine urobilinogen measurement by automated test strip (mass/volume) NORMAL NORMAL Urine leukocyte esterase detection by dipstick 3+ NEGATIVE Automated urine sediment erythrocyte count by microscopy (number/high power field) RARE NRG Automated urine sediment leukocyte count by microscopy (number/high power field ) > [HPF] NRG Bacteria detection in urine sediment by light microscopy LARGE NRG Squamous epithelial cells detection in urine sediment by light microscopy 0-2 NRG Crystals detection in urine sediment by light microscopy NONE NRG Casts detection in urine sediment by light microscopy NONE NRG Mucus detection in urine sediment by light microscopy NEGATIVE NRG Complete urinalysis with reflex to culture YES NRG Urine protein/creatinine mass ratio - 07/22/17 14:30 Urine protein measurement (mass/volume) 17 mg/dL 6-12 Urine creatinine measurement (mass/volume) 75 mg/dL 30- 125 Urine protein/creatinine mass ratio 0.23 NRG Bacterial urine culture - 07/22/17 14:30 Bacterial urine culture [id number] NRG COLONY COUNT >100,000/ML NRG FTX;REPORTABLE SENSITIVITY [place]PORTED [place] 0803, 4-18 NRG URINE CULTURE RESULTS PLUS NR Bacterial susceptibility panel - 07/22/17 14:30 Gentamicin susceptibility test by minimum inhibitory concentration > = NRG Trimethoprim/sulfamethoxazole susceptibility test by minimum inhibitoryconcentration >= NRG Ampicillin susceptibility test by minimum inhibitory concentration > = NRG Tobramycin susceptibility test by minimum inhibitory concentration S NRG Cefazolin susceptibility test by minimum inhibitory concentration < = NRG Ceftriaxone susceptibility test by minimum inhibitory concentration <= NRG Ampicillin/sulbactam susceptibility test by minimum inhibitory concentration I NRG Piperacillin/tazobactam susceptibility test by minimum inhibitory concentration S NRG Ciprofloxacin susceptibility test by minimum inhibitory concentration >= NRG Meropenem susceptibility test by minimum inhibitory concentration < = NRG Nitrofurantoin susceptibility test by minimum inhibitory concentration <= NRG Aztreonam susceptibility test by minimum inhibitory concentration < = NRG Extended spectrum beta lactamase (ESBL) producing bacteria susceptibility test by minimum inhibitory concentration - [facility] Automated blood complete blood count (hemogram) panel - 07/22/17 14:53 Blood leukocytes automated count (number/volume) 7.9 10*3/uL 4.3-11.0 Blood erythrocytes automated count (number/volume) 4.87 10*6/uL 4.35-5.85 Venous blood hemoglobin measurement (mass/volume) 13.7 g/dL 13.3-17.7 Blood hematocrit (volume fraction) 42 % 40-54 Automated erythrocyte mean corpuscular volume 87 [foz_us] 80-99 Automated erythrocyte mean corpuscular hemoglobin (mass per erythrocyte) 28 pg 25-34 Automated erythrocyte mean corpuscular hemoglobin concentration measurement ( mass/volume) 33 g/dL 32-36 Automated erythrocyte distribution width ratio 15.5 % 10.0-14.5 Automated blood platelet count (count/volume) 167 10*3/uL 130-400 Automated blood platelet mean volume measurement 9.5 [foz_us] 7.4-10.4 Serum or plasma renal function panel (Na, K, Cl, CO2, BUN, Cr, glucose,Ca, phos , alb) - 07/22/17 14:53 Serum or plasma sodium measurement (moles/volume) 138 mmol/L 135-145 Serum or plasma potassium measurement (moles/volume) 4.3 mmol/L 3.6-5.0 Serum or plasma chloride measurement (moles/volume) 102 mmol/L 98-107 Carbon dioxide 26 mmol/L 21-32 Serum or plasma anion gap determination (moles/volume) 10 mmol/L 5-14 Serum or plasma urea nitrogen measurement (mass/volume) 13 mg/dL 7-18 Serum or plasma creatinine measurement (mass/volume) 1.13 mg/dL 0.60-1.30 Serum or plasma urea nitrogen/creatinine mass ratio 12 NRG Serum or plasma creatinine measurement with calculation of estimated glomerular filtration rate > NRG Serum or plasma glucose measurement (mass/volume) 333 mg/dL 70-105 Serum or plasma calcium measurement (mass/volume) 9.8 mg/dL 8.5-10.1 Serum or plasma albumin measurement (mass/volume) 4.1 g/dL 3.2-4.5 Serum or plasma phosphate measurement (mass/volume) 2.9 mg/dL 2.3-4.7 Serum or plasma uric acid measurement (mass/volume) - 07/22/17 14:53 Serum or plasma uric acid measurement (mass/volume) 7.1 mg/dL 2.6-7.2 Serum or plasma intact pararthyroid hormone measurement (mass/volume) - 14:53 Serum or plasma intact parathyroid hormone measurement (mass/volume) 121.0 pg/mL 10.0-65.0 Bio-intact parathyroid hormone (PTH) measurement with calcium 9.4 % 8.5-10.5 VITAMIN D 25-HYDROXY - 07/22/17 14:53 VITAMIN D 25-HYDROXY (TOTAL) 30 % 30-100 Complete blood count (CBC) with automated white blood cell (WBC) differential - 10/01/17 16:15 Blood leukocytes automated count (number/volume) 8.9 10*3/uL 4.3-11.0 Blood erythrocytes automated count (number/volume) 5.02 10*6/uL 4.35-5.85 Venous blood hemoglobin measurement (mass/volume) 14.3 g/dL 13.3-17.7 Blood hematocrit (volume fraction) 43 % 40-54 Automated erythrocyte mean corpuscular volume 86 [foz_us] 80-99 Automated erythrocyte mean corpuscular hemoglobin (mass per erythrocyte) 29 pg 25-34 Automated erythrocyte mean corpuscular hemoglobin concentration measurement ( mass/volume) 33 g/dL 32-36 Automated erythrocyte distribution width ratio 15.9 % 10.0-14.5 Automated blood platelet count (count/volume) 209 10*3/uL 130-400 Automated blood platelet mean volume measurement 10.0 [foz_us] 7.4-10.4 Automated blood neutrophils/100 leukocytes 78 % 42-75 Automated blood lymphocytes/100 leukocytes 13 % 12-44 Blood monocytes/100 leukocytes 7 % 0-12 Automated blood eosinophils/100 leukocytes 2 % 0-10 Automated blood basophils/100 leukocytes 0 % 0-10 Blood neutrophils automated count (number/volume) 6.9 10*3 1.8-7.8 Blood lymphocytes automated count (number/volume) 1.1 10*3 1.0-4.0 Blood monocytes automated count (number/volume) 0.6 10*3 0.0-1.0 Automated eosinophil count 0.2 10*3/uL 0.0-0.3 Automated blood basophil count (count/volume) 0.0 10*3/uL 0.0-0.1 PT panel in platelet poor plasma by coagulation assay - 10/01/17 16:15 Prothrombin time (PT) in platelet poor plasma by coagulation assay 17.5 s 12.2-14.7 INR in platelet poor plasma or blood by coagulation assay 1.4 0.8-1.4 Activated partial thromboplastin time (aPTT) in platelet poor plasma bycoagulation assay - 10/01/17 16:15 Activated partial thromboplastin time (aPTT) in platelet poor plasma bycoagulation assay 27 s 24-35 Comprehensive metabolic panel - 10/01/17 16:15 Serum or plasma sodium measurement (moles/volume) 142 mmol/L 135-145 Serum or plasma potassium measurement (moles/volume) 3.4 mmol/L 3.6-5.0 Serum or plasma chloride measurement (moles/volume) 101 mmol/L 98-107 Carbon dioxide 28 mmol/L 21-32 Serum or plasma anion gap determination (moles/volume) 13 mmol/L 5-14 Serum or plasma urea nitrogen measurement (mass/volume) 23 mg/dL 7-18 Serum or plasma creatinine measurement (mass/volume) 1.29 mg/dL 0.60-1.30 Serum or plasma urea nitrogen/creatinine mass ratio 18 NRG Serum or plasma creatinine measurement with calculation of estimated glomerular filtration rate 57 NRG Serum or plasma glucose measurement (mass/volume) 166 mg/dL 70-105 Serum or plasma calcium measurement (mass/volume) 10.0 mg/dL 8.5-10.1 Serum or plasma total bilirubin measurement (mass/volume) 1.0 mg/dL 0.1-1.0 Serum or plasma alkaline phosphatase measurement (enzymatic activity/volume) 86 U/L 40-136 Serum or plasma aspartate aminotransferase measurement (enzymatic activity/ volume) 25 U/L 5-34 Serum or plasma alanine aminotransferase measurement (enzymatic activity/volume ) 24 U/L 0-55 Serum or plasma protein measurement (mass/volume) 7.3 g/dL 6.4-8.2 Serum or plasma albumin measurement (mass/volume) 4.3 g/dL 3.2-4.5 Magnesium - 10/01/17 16:15 Magnesium 2.0 mg/dL 1.8-2.4 Serum or plasma creatine kinase measurement (enzymatic activity/volume) - 10/01 16:15 Serum or plasma creatine kinase measurement (enzymatic activity/volume) 225 U/L 30-200 Serum or plasma creatine kinase MB measurement (enzymatic activity/volume) - 16:15 Serum or plasma creatine kinase MB measurement (enzymatic activity/volume) 3.7 ng/mL <6.6 Serum or plasma lithium measurement (moles/volume) - 10/01/17 16:15 BNP level 46.7 pg/mL <100.0 Serum or plasma troponin i.cardiac measurement (mass/volume) - 10/01/17 16:15 Serum or plasma troponin i.cardiac measurement (mass/volume) < ng/ mL <0.30 Serum or plasma thyrotropin measurement by detection limit <=0.05 miu/l (units/ volume) - 10/01/17 16:15 Serum or plasma thyrotropin measurement by detection limit <=0.05 miu/l (units/ volume) 1.04 u[iU]/mL 0.35-4.94 Serum or plasma ethanol measurement (mass/volume) - 10/01/17 16:15 Serum or plasma ethanol measurement (mass/volume) < mg/dL <10 Capillary blood glucose measurement by glucometer (mass/volume) - 10/01/17 16: 48 Capillary blood glucose measurement by glucometer (mass/volume) 167 mg/dL 70-110 Complete urinalysis with reflex to culture - 10/01/17 18:44 Urine color determination YELLOW NRG Urine clarity determination VERY CLOUDY NRG Urine pH measurement by test strip 6 5-9 Specific gravity of urine by test strip 1.015 1.016- 1.022 Urine protein assay by test strip, semi-quantitative 1+ NEGATIVE Urine glucose detection by automated test strip NEGATIVE NEGATIVE Erythrocytes detection in urine sediment by light microscopy 1+ NEGATIVE Urine ketones detection by automated test strip NEGATIVE NEGATIVE Urine nitrite detection by test strip POSITIVE NEGATIVE Urine total bilirubin detection by test strip NEGATIVE NEGATIVE Urine urobilinogen measurement by automated test strip (mass/volume) NORMAL NORMAL Urine leukocyte esterase detection by dipstick 3+ NEGATIVE Automated urine sediment erythrocyte count by microscopy (number/high power field) [HPF] NRG Automated urine sediment leukocyte count by microscopy (number/high power field ) > [HPF] NRG Bacteria detection in urine sediment by light microscopy LARGE NRG Squamous epithelial cells detection in urine sediment by light microscopy 0-2 NRG Crystals detection in urine sediment by light microscopy NONE NRG Casts detection in urine sediment by light microscopy PRESENT NRG Mucus detection in urine sediment by light microscopy NEGATIVE NRG Complete urinalysis with reflex to culture YES NRG Hyaline casts detection in urine sediment by light microscopy 0-2 NRG Urine drug screening test - 10/01/17 18:44 Urine phencyclidine detection by screening method NEGATIVE NEGATIVE Urine benzodiazepines detection by screening method NEGATIVE NEGATIVE Urine cocaine detection NEGATIVE NEGATIVE Urine amphetamines detection by screening method NEGATIVE NEGATIVE Urine methamphetamine detection by screening method NEGATIVE NEGATIVE Urine cannabinoids detection by screening method NEGATIVE NEGATIVE Urine opiates detection by screening method POSITIVE NEGATIVE Urine barbiturates detection NEGATIVE NEGATIVE Screening urine tricyclic antidepressants detection POSITIVE NEGATIVE Urine methadone detection by screening method NEGATIVE NEGATIVE Urine oxycodone detection NEGATIVE NEGATIVE Urine propoxyphene detection NEGATIVE NEGATIVE Encounters ACCT No. Visit Date/Time Discharge Status Pt. Type Provider Facility Loc./Unit Complaint [id number] 08/07/2014 14:56:00 08/07/2014 23:59:59 CLS Outpatient KATHYA FISCHER APRN [id number] 07/05/2014 15:42:00 07/05/2014 23:59:59 CLS Outpatient KATHYA FISCHER APRN [id number] 07/05/2014 15:42:00 07/05/2014 23:59:59 CLS Outpatient KATHYA FISCHER APRN [id number] 05/22/2014 14:19:00 05/22/2014 23:59:59 CLS Outpatient KATHYA FISCHER APRN [id number] 05/08/2014 14:10:00 05/08/2014 23:59:59 CLS Outpatient KATHYA FISCHER APRN [id number] 03/08/2014 14:54:00 03/08/2014 23:59:59 CLS Outpatient KATHYA FISCHER APRN [id number] 03/08/2014 14:54:00 03/08/2014 23:59:59 CLS Outpatient KATHYA FISCHER APRN [id number] 12/05/2013 15:54:00 12/05/2013 23:59:59 CLS Outpatient KATHYA FISCHER APRN [id number] 12/05/2013 15:54:00 12/05/2013 23:59:59 CLS Outpatient KATHYA FISCHER APRN [id number] 10/25/2013 08:27:00 10/25/2013 23:59:59 CLS Outpatient DAKOTA TEJADA DO [id number] 08/12/2013 14:52:00 08/12/2013 23:59:59 CLS Outpatient ÁNGEL SPIVEY MD [id number] 08/09/2013 08:17:00 08/09/2013 23:59:59 CLS Outpatient KATHYA FISCHER APRN Stephanie [id number] 05/10/2013 13:26:00 05/10/2013 23:59:59 CLS Outpatient KATHYA FISCHER APRN [id number] 05/10/2013 13:26:00 05/10/2013 23:59:59 CLS Outpatient KATHYA FISCHER APRN [id number] 03/11/2013 11:46:00 03/11/2013 23:59:59 CLS Outpatient KATHYA FISCHER APRN [id number] 02/01/2013 13:58:00 02/01/2013 23:59:59 CLS Outpatient KATHYA FISCHER APRN [id number] 02/01/2013 13:58:00 02/01/2013 23:59:59 CLS Outpatient DAKOTA TEJADA DO [id number] 12/31/2012 10:22:00 12/31/2012 23:59:59 CLS Outpatient DAKOTA TEJADA DO [id number] 07/16/2012 08:54:00 07/16/2012 23:59:59 CLS Outpatient [id number] 06/14/2012 14:00:00 06/14/2012 23:59:59 CLS Outpatient [id number] 06/14/2012 14:00:00 06/14/2012 23:59:59 CLS Outpatient [id number] 05/07/2012 07:53:00 05/07/2012 23:59:59 CLS Outpatient DAKOTA TEJADA DO [id number] 03/16/2012 14:40:00 03/16/2012 23:59:59 CLS Outpatient KATHYA FISCHER APRN [id number] 02/23/2012 09:56:00 02/23/2012 23:59:59 CLS Outpatient KATHYA FISCHER APRN [id number] 12/10/2012 07:51:00 Document Registration [id number] 10/19/2012 14:39:00 Document Registration [id number] 10/19/2012 14:39:00 Document Registration [id number] 10/15/2012 09:05:00 Document Registration [id number] 09/10/2012 10:34:00 Document Registration [id number] 09/06/2012 08:47:00 Document Registration [id number] 08/23/2012 08:54:00 Document Registration [id number] 08/06/2012 10:41:00 Document Registration [id number] 06/05/2016 08:40:00 Document Registration [id number] 06/06/2016 17:10:00 Document Registration [id number] 07/01/2017 14:20:00 07/01/2017 23:59:59 CLS Outpatient KATHYA FISCHER [facility]N [facility] [id number] 06/05/2016 08:40:00 Document Registration [id number] 01/29/2015 14:41:24 ACT Document Registration [id number] 07/22/2017 14:35:00 07/22/2017 23:59:59 CLS Outpatient ROHIT CAVAZOS MD [facility] LAB N18.2,R60.0,E87.5, Z86.59,I10 [id number] 07/21/2017 11:42:00 07/21/2017 23:59:59 CLS Outpatient DIONICIO AMEZCUA FACC, FLORIN WEINBERG CCDS [facility] CARD CHEST PAIN SYNDROME [id number] 04/03/2017 15:54:00 04/03/2017 23:59:59 CLS Outpatient ROHIT CAVAZOS MD [facility] LAB N18.2,R60.0,E87.5, Z86.59,E66.2 [id number] 03/23/2017 14:28:00 03/23/2017 23:59:59 CLS Outpatient ROHIT CAVAZOS MD [facility] LAB N18.2 R60.0 E87.5 Z86.59 [id number] 07/31/2016 00:15:00 07/31/2016 23:59:59 CLS Preadmit ROHIT CAVAZOS MD [facility] LAB URINARY URGENCY [id number] 05/01/2016 13:24:00 07/30/2016 00:01:00 DIS Outpatient ROHIT CAVAZOS MD [facility] LAB URINARY URGENCY [id number] 07/03/2016 13:12:00 07/03/2016 23:59:59 CLS Outpatient ROHIT CAVAZOS MD [facility] LAB N18.2,R60.0,E78.5 [id number] 04/26/2016 15:37:00 05/01/2016 13:35:00 DIS Outpatient ROHIT CAVAZOS MD [facility] LAB CHRONIC KIDNEY DISEASE,HYPERLIPIDEMIA [id number] 03/17/2016 00:09:00 03/17/2016 23:59:59 CLS Preadmit ROHIT CAVAZOS MD [facility] LAB CHRONIC KIDNEY DISEASE STAGE 2 [id number] 12/21/2015 14:07:00 03/16/2016 00:01:00 DIS Outpatient ROHIT CAVAZOS MD [facility] LAB CHRONIC KIDNEY DISEASE STAGE 2 [id number] 12/31/2015 13:20:00 12/31/2015 16:00:00 DIS Outpatient ALFONSO ESTRADA MD [facility] WOUNDCARE [id number] 10/15/2015 15:21:00 10/15/2015 23:59:59 CLS Outpatient NAYELI CAVAZOS MD S [facility] LAB CKD,EDEMA, HYPERKALEMIA [id number] 08/23/2015 13:55:00 08/23/2015 23:59:59 CLS Outpatient SAM MOBLEY [facility] CARD HTN,DYSPNEA [id number] 08/08/2015 16:12:00 08/08/2015 23:59:59 CLS Outpatient ROHIT CAVAZOS MD [facility] LAB CHRONIC KIDNEY DISEASE,EDEMA,SLEEP APNEA [id number] 07/26/2015 14:20:00 07/26/2015 23:59:59 CLS Outpatient YESENIA SANTILLAN APRN [facility] LAB OBESITY,CHUNG, RESTRICTIVE LUNG DISEASE [id number] 07/06/2015 14:41:00 07/06/2015 23:59:59 CLS Outpatient TAMIKA HILARIO DO [facility] RT DYSPNEA,SLEEP APNEA [id number] 07/04/2015 14:22:00 07/04/2015 15:00:00 DIS Outpatient ALFONSO ESTRADA MD [facility] WOUNDCARE [id number] 04/23/2015 14:56:00 04/23/2015 23:59:59 CLS Outpatient ALFONSO ESTRADA MD [facility] RAD LEFT THIGH SWELLING, ERYTHEMA,LOCALIZED TENDERNESS [id number] 04/09/2015 13:34:00 04/22/2015 00:01:00 DIS Outpatient ALFONSO ESTRADA MD [facility] WOUNDCARE [id number] 03/27/2015 12:49:00 03/27/2015 23:59:59 CLS Outpatient ALFONSO ESTRADA MD [facility] RAD VENOUS ULCER, LEFT VENOUS [id number] 03/23/2015 08:38:00 03/23/2015 23:59:59 CLS Outpatient ALFONSO ESTRADA MD [facility] LAB VENOUS ULCER L LEG LYMHEDMIA [id number] 01/17/2015 13:48:00 01/17/2015 00:01:00 DIS Outpatient ALFONSO ESTRADA MD [facility] WOUNDCARE [id number] 12/06/2014 12:30:00 12/12/2014 00:01:00 DIS Outpatient VARSHA HERNANDEZ DO [facility] WOUNDCARE [id number] 11/16/2014 09:46:00 11/16/2014 23:59:59 CLS Outpatient ROHIT CAVAZOS MD [facility] RAD CKD II [id number] 11/06/2014 11:04:00 11/06/2014 23:59:59 CLS Outpatient SAM MOBLEY [facility] LAB CKD [id number] 10/18/2014 15:52:00 10/18/2014 23:59:59 CLS Outpatient SAM MOBLEY [facility] LAB HTN,SLEEP APNEA,CKD [id number] 10/09/2014 13:41:00 10/09/2014 23:59:59 CLS Outpatient FLORIN GREENBERG MD, FACC, FACP CCDS [facility] LAB DIABETIC,PAIN AND SWELLING [id number] 10/06/2014 12:28:00 10/06/2014 23:59:59 CLS Outpatient FLORIN GREENBERG MD, FACC, FACP CCDS [facility] LAB HYPERKALEMIA [id number] 09/14/2014 13:52:00 09/14/2014 23:59:59 CLS Outpatient VARSHA HERNANDEZ DO [facility] RAD PAIN,SWELLING, DIABETES [id number] 09/14/2014 13:48:00 09/14/2014 23:59:59 CLS Outpatient SAM MOBLEY [facility] LAB HYPERKALCEMIA [id number] 09/11/2014 12:52:00 09/11/2014 23:59:59 CLS Outpatient DIONICIO AMEZCUA FACC, ALI FACP CCDS [facility] LAB PAIN SWELLING LOWER LEG VENOUS ULCERS LOWER EXTREM [id number] 03/21/2014 07:32:00 03/21/2014 23:59:59 CLS Outpatient DIONICIO AMEZCUA FACC, FLORIN FACP CCDS [facility] CARD CP,HLP,DM, [id number] 03/02/2013 07:53:00 03/02/2013 23:59:59 CLS Outpatient DIONICIO AMEZCUA FACC, FLORIN FACDavid CCDS [facility] CARD HLP,CP,HTN [id number] 10/01/2017 16:39:00 Document Registration
[2017-10-01] MEDS ORDERED: cefTRIAXone INJECTION 1,000 MG in NS (IVPB) 50 ML IV ONE (19:45)
[2017-10-01 20:34] LABS: ABG BASE EXCESS 5.4 MMOL/L (-2.5-2.5); ABG OXYGEN SATURATION 98 % (94-100); ABG PCO2 45 MMHG (35-45); ABG PH 7.43 (7.37-7.43); ABG PO2 99 MMHG (79-93); ABG TCO2 31.5 MMOL/L (21.0-31.0); ALLENS TEST YES-POS
[2017-10-01 20:35] LABS: INSPIRED O2 6L; PATIENT TEMP 95.6; VENTILATOR NO
--- OUTSIDE RECORDS SUMMARY | 2017-10-01 20:59 | XMS REPORT | Continuity of Care Document ---
Author Author Formerly [facility] Address Unknown Phone Unavailable Allergies Active Description Code Type Severity Reaction Onset Reported/Identified Relationship to Patient Clinical Status Yes Cozaar Drug Allergy N/A N/A 05/29/2008 Yes Cozaar Drug Allergy 05/29/2008 Yes sulfa drug Drug Allergy 05/29/2008 Yes lasix OA N/A N/A 06/13/2009 Yes lasix OA 06/13/2009 Yes ARTIFICIAL SWEETNERS ARTIFICIAL SWEETNERS Unknown N/A 03/21/2014 Yes latex [id number] Drug Allergy Unknown N/A 03/21/2014 Yes raspberry [id number] Drug Allergy Unknown N/A 03/21/2014 Yes Sulfa (Sulfonamide Antibiotics) [id number] Drug Allergy Unknown N/A 2013 Yes zinc oxide [id number] Drug Allergy Unknown N/A 03/21/2014 Medications There is no data. Problems Date Dx Coded Attending Type Code Diagnosis Diagnosed By 03/19/1334 DIRK AMEZCUA, ROHIT Ot E11.9 TYPE 2 DIABETES MELLITUS WITHOUT COMPLIC 03/19/1334 DIRK AMEZCUA, ROHIT Ot E66.2 MORBID (SEVERE) OBESITY WITH ALVEOLAR HY 03/19/1334 ROHIT CAVAZOS MD Ot E78.5 HYPERLIPIDEMIA, UNSPECIFIED 03/19/1334 [...] DO 401.1 ESSENTIAL HYPERTENSION BENIGN 01/06/2008 AMADO MANUFACTURING PRODUCTION TECHNICIAN, KATHYA T 401.1 ESSENTIAL HYPERTENSION BENIGN 01/06/2008 AMADO MANUFACTURING PRODUCTION TECHNICIAN, KATHYA T 401.1 ESSENTIAL HYPERTENSION BENIGN 01/06/2008 AMADO MANUFACTURING PRODUCTION TECHNICIAN, KATHYA T 401.1 ESSENTIAL HYPERTENSION BENIGN 01/06/2008 AMADO PHILIP, KATHYA T 401.1 ESSENTIAL HYPERTENSION BENIGN 01/06/2008 ÁNGEL SPIVEY MD 401.1 ESSENTIAL HYPERTENSION BENIGN 01/06/2008 DAKOTA TEJADA DO 401.1 ESSENTIAL HYPERTENSION BENIGN 01/06/2008 KATHYA FISCHER APRN T 401.1 ESSENTIAL HYPERTENSION BENIGN 01/06/2008 AMADO MANUFACTURING PRODUCTION TECHNICIANKATHYA T 401.1 ESSENTIAL HYPERTENSION BENIGN 01/06/2008 AMADO MANUFACTURING PRODUCTION TECHNICIAN, KATHYA T 401.1 ESSENTIAL HYPERTENSION BENIGN 01/06/2008 AMADO MANUFACTURING PRODUCTION TECHNICIAN, KATHYA T 401.1 ESSENTIAL HYPERTENSION BENIGN 01/06/2008 AMADO MANUFACTURING PRODUCTION TECHNICIAN, KATHYA T 401.1 ESSENTIAL HYPERTENSION BENIGN 01/06/2008 AMADO MANUFACTURING PRODUCTION TECHNICIAN, KATHYA T 401.1 ESSENTIAL HYPERTENSION BENIGN 01/06/2008 AMADO MANUFACTURING PRODUCTION TECHNICIAN, KATHYA T 401.1 ESSENTIAL HYPERTENSION BENIGN 01/06/2008 [...] AND ABSCESS OF UNSPECIFIED SITES 03/15/2008 DAKOTA ETJADA DO 682.9 CELLULITIS AND ABSCESS OF UNSPECIFIED [...] 327.23 SLEEP APNEA (ADULT) (PEDIATRIC) 04/27/2008 AMADO MANUFACTURING PRODUCTION TECHNICIAN, KATHYA T 327.23 SLEEP APNEA (ADULT) (PEDIATRIC) 04/27/2008 DAKOTA TEJADA DO K 327.23 SLEEP APNEA (ADULT) (PEDIATRIC) 04/27/2008 AMADO MANUFACTURING PRODUCTION TECHNICIAN, KATHYA T 327.23 SLEEP APNEA (ADULT) (PEDIATRIC) 04/27/2008 AMADO MANUFACTURING PRODUCTION TECHNICIAN, KATHYA T 327.23 SLEEP APNEA (ADULT) (PEDIATRIC) 04/27/2008 AMADO RAHMANN, KATHYA T 327.23 SLEEP APNEA (ADULT) (PEDIATRIC) 04/27/2008 AMADO MANUFACTURING PRODUCTION TECHNICIAN, KATHYA T 327.23 SLEEP APNEA (ADULT) (PEDIATRIC) 04/27/2008 ÁNGEL SPIVEY MD 327.23 SLEEP APNEA (ADULT) (PEDIATRIC) 04/27/2008 DAKOTA TEJADA DO 327.23 SLEEP APNEA (ADULT) (PEDIATRIC) 04/27/2008 AMADO MANUFACTURING PRODUCTION TECHNICIAN, KATHYA T 327.23 SLEEP APNEA (ADULT) (PEDIATRIC) 04/27/2008 AMADO MANUFACTURING PRODUCTION TECHNICIAN, KATHYA T 327.23 SLEEP APNEA (ADULT) (PEDIATRIC) 04/27/2008 AMADO MANUFACTURING PRODUCTION TECHNICIAN, KATHYA T 327.23 SLEEP APNEA (ADULT) (PEDIATRIC) 04/27/2008 AMADO MANUFACTURING PRODUCTION TECHNICIAN, KATHYA T 327.23 SLEEP APNEA (ADULT) (PEDIATRIC) 04/27/2008 AMADO MANUFACTURING PRODUCTION TECHNICIAN, KATHYA T 327.23 SLEEP APNEA (ADULT) (PEDIATRIC) 04/27/2008 AMADO MANUFACTURING PRODUCTION TECHNICIAN, KATHYA T 327.23 SLEEP APNEA (ADULT) (PEDIATRIC) 04/27/2008 AMADO MANUFACTURING PRODUCTION TECHNICIAN, KATHYA T 327.23 SLEEP APNEA (ADULT) (PEDIATRIC) [...] KATHYA T 466.0 BRONCHITIS, ACUTE 08/03/2008 AMADO MANUFACTURING PRODUCTION TECHNICIAN, KATHYA T 466.0 BRONCHITIS, ACUTE 08/03/2008 AMADO [...] W/ NEUROPATHY; DM TYPE 2 07/10/2009 AMADO MANUFACTURING PRODUCTION TECHNICIAN, KATHYA T 250.00 DIABETES MELLITUS 07/10/2009 AMADO MANUFACTURING PRODUCTION TECHNICIAN, KATHYA T 250.60 DIABETES W/ NEUROPATHY; DM TYPE 2 07/10/2009 AMADO MANUFACTURING PRODUCTION TECHNICIAN, KATHYA T 250.00 DIABETES MELLITUS 07/10/2009 AMADO MANUFACTURING PRODUCTION TECHNICIAN, KATHYA T 250.60 DIABETES W/ NEUROPATHY; DM TYPE 2 07/10/2009 AMADO MANUFACTURING PRODUCTION TECHNICIAN, KATHYA T 250.00 DIABETES MELLITUS 07/10/2009 AMADO MANUFACTURING PRODUCTION TECHNICIAN, KATHYA T 250.60 DIABETES W/ NEUROPATHY; DM TYPE 2 07/10/2009 AMADO MANUFACTURING PRODUCTION TECHNICIAN, KATHYA T 250.00 DIABETES MELLITUS 07/10/2009 AMADO MANUFACTURING PRODUCTION TECHNICIAN, KATHYA T 250.60 DIABETES W/ NEUROPATHY; DM TYPE 2 07/10/2009 AMADO MANUFACTURING PRODUCTION TECHNICIAN, KATHYA T 250.00 DIABETES MELLITUS 07/10/2009 AMADO MANUFACTURING PRODUCTION TECHNICIAN, KATHYA T 250.60 DIABETES W/ NEUROPATHY; DM TYPE 2 07/10/2009 AMADO MANUFACTURING PRODUCTION TECHNICIAN, KATHYA T 250.00 DIABETES MELLITUS 07/10/2009 AMADO MANUFACTURING PRODUCTION TECHNICIAN, KATHYA T 250.60 DIABETES W/ NEUROPATHY; DM TYPE 2 07/10/2009 AMADO MANUFACTURING PRODUCTION TECHNICIAN, KATHYA T 250.00 DIABETES MELLITUS 07/10/2009 AMADO MANUFACTURING PRODUCTION TECHNICIAN, KATHYA T 250.60 DIABETES W/ NEUROPATHY; DM [...] KATHYA FISCHER APRN 701.9 SKIN TAG 09/19/2009 DAKOTA TEJADA [...] RAHMANN KATHYA T 307.40 INSOMNIA 09/19/2009 AMADO MANUFACTURING PRODUCTION TECHNICIAN, KATHYA T 701.9 SKIN TAG 09/19/2009 TEJADA DO, DAKOTA K 307.40 INSOMNIA 09/19/2009 ETJADA DO, DAKOTA K 701.9 SKIN TAG 09/19/2009 KATHYA FISCHER APRN T 307.40 INSOMNIA 09/19/2009 AMADO RAHMANNKATHYA T 701.9 SKIN TAG 09/19/2009 AMADO MANUFACTURING PRODUCTION TECHNICIAN KATHYA T 307.40 INSOMNIA 09/19/2009 KATHYA FISCHER [...] RAHMANN KATHYA T 307.40 INSOMNIA 09/19/2009 AMADO MANUFACTURING PRODUCTION TECHNICIAN, KATHYA T 701.9 SKIN TAG 09/19/2009 AMADO PHILIP KATHYA T 307.40 INSOMNIA 09/19/2009 AMADO PHILIP KATHYA T 701.9 SKIN TAG 09/19/2009 AMADO MANUFACTURING PRODUCTION TECHNICIAN, KATHYA T 307.40 INSOMNIA 09/19/2009 KATHYA FISCHER [...] FISCHER APRN T 356.9 Neuropathy 10/18/2010 AMADO MANUFACTURING PRODUCTION TECHNICIAN, KATHYA T 110.1 Onychomycosis 10/18/2010 AMADO PHILIP, [...] KATHYA FISCHER APRN 782.3 Edema 03/26/2011 AMADO MANUFACTURING PRODUCTION TECHNICIAN, KATHYA T 782.3 Edema 03/26/2011 AMADO MANUFACTURING PRODUCTION TECHNICIAN, KATHYA T 782.3 Edema 03/26/2011 AMADO MANUFACTURING PRODUCTION TECHNICIAN, KATHYA T 782.3 Edema 03/26/2011 AMADO MANUFACTURING PRODUCTION TECHNICIAN, KATHYA T 782.3 Edema 03/26/2011 AMADO MANUFACTURING PRODUCTION TECHNICIAN, KATHYA T 782.3 Edema 03/26/2011 AMADO MANUFACTURING PRODUCTION TECHNICIAN, KATHYA T 782.3 Edema 08/22/2011 AMADO MANUFACTURING PRODUCTION TECHNICIAN, KATHYA T 272.4 DYSLIPIDEMIA 08/22/2011 AMADO MANUFACTURING PRODUCTION TECHNICIAN, KATHYA T 272.4 DYSLIPIDEMIA 08/22/2011 TEJADA DO, DAKOTA K 272.4 DYSLIPIDEMIA 08/22/2011 272.4 DYSLIPIDEMIA 08/22/2011 272.4 DYSLIPIDEMIA 08/22/2011 272.4 DYSLIPIDEMIA 08/22/2011 272.4 DYSLIPIDEMIA 08/22/2011 272.4 DYSLIPIDEMIA 08/22/2011 272.4 DYSLIPIDEMIA 08/22/2011 272.4 DYSLIPIDEMIA 08/22/2011 272.4 DYSLIPIDEMIA 08/22/2011 272.4 DYSLIPIDEMIA 08/22/2011 272.4 DYSLIPIDEMIA 08/22/2011 272.4 DYSLIPIDEMIA 08/22/2011 TEJADA DO, DAKOTA K 272.4 DYSLIPIDEMIA 08/22/2011 AMADO MANUFACTURING PRODUCTION TECHNICIAN, KATHYA T 272.4 DYSLIPIDEMIA 08/22/2011 TEJADA DO, [...] APRN V03.82 Ppv23 (pneumovax) Dx 03/16/2012 AMADO MANUFACTURING PRODUCTION TECHNICIAN, KATHYA T V03.82 Ppv23 (pneumovax) Dx 03/16/2012 AMADO PHILIP, KATHYA T V03.82 Ppv23 (pneumovax) Dx 03/16/2012 AMADO PHILIP, KATHYA T V03.82 Ppv23 (pneumovax) Dx 03/16/2012 AMADO PHILIP, KATHAY T V03.82 Ppv23 (pneumovax) Dx 03/16/2012 KATHYA FISCHER APRN T V03.82 Ppv23 (pneumovax) Dx 03/16/2012 KATHYA FISCHER APRN T V03.82 Ppv23 (pneumovax) Dx 03/16/2012 AMADO PHILIP, KATHYA T V03.82 Ppv23 (pneumovax) Dx 06/14/2012 729.5 [...] DAKOTA K 786.50 CHEST PAIN 10/25/2013 AMADO MANUFACTURING PRODUCTION TECHNICIAN, KATHYA T 402.90 HCVD 10/25/2013 AMADO MANUFACTURING PRODUCTION TECHNICIAN, KATHYA T 786.50 CHEST PAIN 10/25/2013 AMADO MANUFACTURING PRODUCTION TECHNICIAN, KATHYA T 402.90 HCVD 10/25/2013 AMADO MANUFACTURING PRODUCTION TECHNICIAN, KATHYA T 786.50 CHEST PAIN 10/25/2013 AMADO MANUFACTURING PRODUCTION TECHNICIAN, KATHYA T 402.90 HCVD 10/25/2013 AMADO MANUFACTURING PRODUCTION TECHNICIAN, KATHYA T 786.50 CHEST PAIN 10/25/2013 AMADO MANUFACTURING PRODUCTION TECHNICIAN, KATHYA T 402.90 HCVD 10/25/2013 AMADO MANUFACTURING PRODUCTION TECHNICIAN, KATHYA T 786.50 CHEST PAIN 10/25/2013 AMADO MANUFACTURING PRODUCTION TECHNICIAN, KATHYA T 402.90 HCVD 10/25/2013 AMADO MANUFACTURING PRODUCTION TECHNICIAN, KATHYA T 786.50 CHEST PAIN 10/25/2013 AMADO MANUFACTURING PRODUCTION TECHNICIAN, KATHYA T 402.90 HCVD 10/25/2013 AMADO MANUFACTURING PRODUCTION TECHNICIAN, KATHYA T 786.50 CHEST PAIN 10/25/2013 AMADO MANUFACTURING PRODUCTION TECHNICIAN, KATHYA T 402.90 HCVD 10/25/2013 AMADO MANUFACTURING PRODUCTION TECHNICIAN, KATHYA T 786.50 CHEST PAIN 10/25/2013 AMADO MANUFACTURING PRODUCTION TECHNICIAN, KATHYA T 402.90 HCVD 10/25/2013 AMADO MANUFACTURING PRODUCTION TECHNICIAN, KATHYA T 786.50 CHEST PAIN 03/08/2014 AMADO MANUFACTURING PRODUCTION TECHNICIAN, KATHYA T 782.3 EDEMA 03/08/2014 AMADO MANUFACTURING PRODUCTION TECHNICIAN, KATHYA T 782.3 EDEMA 03/08/2014 AMADO MANUFACTURING PRODUCTION TECHNICIAN, KATHYA T 782.3 EDEMA 03/08/2014 AMADO MANUFACTURING PRODUCTION TECHNICIAN, KATHYA T 782.3 EDEMA 03/08/2014 AMADO MANUFACTURING PRODUCTION TECHNICIAN, KATHYA T 782.3 EDEMA 03/08/2014 AMADO MANUFACTURING PRODUCTION TECHNICIAN, KATHYA T 782.3 EDEMA 04/11/2014 DIONICIO AMEZCUA [...] DO, VARSHA A Ot 782.3 10/12/2014 SAM MOBLEY Ot 276.7 10/17/2014 DIONICIO MD FACC, ALI [...] CCDS Ot 729.5 10/31/2014 BAIMA, SAM L [facility]PORATE ACCOUNT DIRECTOR Ot 250.00 10/31/2014 BAIMA, SAM L [facility] ACCOUNT DIRECTOR Ot 402.90 10/31/2014 BAIMA, SAM [facility]ATE ACCOUNT DIRECTOR Ot 585.3 10/31/2014 BAIMA, SAM [facility]ATE ACCOUNT DIRECTOR Ot 780.57 11/21/2014 BAIMA, SAM L [facility]ATE ACCOUNT DIRECTOR Ot 585.3 12/01/2014 DIRK AMEZCUA, ROHIT Ot [...] MD Ot 459.81 01/22/2015 SEAN AMEZCUA, ALFONSO aGllardo Ot 707.19 02/11/2015 SEAN AMEZCUA, ALFONSO Gallardo [...] SEAN AMEZCUA, ALFONSO Gallardo Ot E11.622 04/04/2015 SEAN AMEZCUA, ALFONOS Gallardo Ot E66.01 04/04/2015 SEAN AMEZCUA, ALFONSO [...] Gallardo Ot E11.622 05/08/2015 SEAN AMEZCUA, ALFONSO aGllardo Ot E66.01 05/08/2015 SEAN AMEZCUA, ALFONSO Gallardo [...] FACP CCDS Ot 786.50 07/26/2015 DIONICIO AMEZCUA [facility], ALI FACP CCDS Ot 250.00 07/26/2015 DIONICIO AMEZCUA FAC, ALI FACP CCDS Ot 272.4 07/26/2015 DIONICIO AMEZCUA FAC, ALI FACP CCDS Ot 278.00 07/26/2015 DIONICIO AMEZCUA [facility], ALI FACP CCDS Ot 402.90 07/26/2015 DIONICIO AMEZCUA [facility], ALI FACP CCDS Ot 780.57 07/26/2015 DIONICIO AMEZCUA [facility], ALI FACP CCDS Ot 786.50 07/26/2015 DIONICIO AMEZCUA [facility], ALI FACP CCDS Ot V58.69 07/26/2015 DIONICIO AMEZCUA [facility], ALI FACP CCDS Ot V85.43 07/26/2015 COLTHARP DO, VARSHA A Ot 250.00 07/26/2015 COLTHARP DO, VARSHA A Ot 459.81 07/26/2015 COLTHARP DO, VARSHA A Ot 782.3 07/26/2015 [facility]IONICIO [facility]CU[facility]I FACP CCDS Ot 250.00 07/26/2015 DIONICIO [...] ALFONSO Gallardo Ot L97.222 07/26/2015 SAM MOBLEY [facility]ATE ACCOUNT DIRECTOR Ot 276.7 07/26/2015 DIONICIO AMEZCUA FAC, ALI FACP CCDS Ot 250.00 07/26/2015 DIONICIO AMEZCUA FAC, ALI FACP CCDS Ot 276.7 07/26/2015 DIONICIO AMEZCUA FAC, ALI FACP CCDS Ot 278.00 07/26/2015 DIONICIO AMEZCUA FAC, ALI FACP CCDS Ot 402.90 07/26/2015 DIONICIO AMEZCUA FAC, ALI FACP CCDS Ot 459.81 07/26/2015 DIONICIO AMEZCUA [facility], ALI FACP CCDS Ot 585.3 07/26/2015 DIONICIO AMEZCUA FAC, ALI FACP CCDS Ot 729.5 07/26/2015 DIONICIO AMEZCUA FACC, ALI FACP CCDS Ot 250.00 07/26/2015 DIONICIO AMEZCUA FACC, ALI FACP CCDS Ot 729.5 07/26/2015 SAM MOBLEY L [facility] CORPORATE ACCOUNT DIRECTOR Ot 250.00 07/26/2015 LEANDRA [facility] ACCOUNT DIRECTOR Ot 402.90 07/26/2015 LEANDRA [facility] ACCOUNT DIRECTOR Ot 585.3 07/26/2015 LEANDRA [facility] ACCOUNT DIRECTOR Ot 780.57 07/26/2015 LEANDRA [facility] ACCOUNT DIRECTOR Ot 585.3 07/26/2015 DIRK AMEZCUA, ROHIT Ot [...] HILARIO DO Ot R06.09 07/27/2015 YESENIA SANTILLAN MANUFACTURING PRODUCTION TECHNICIAN Ot E66.9 07/27/2015 YESENIA SANTILLAN MANUFACTURING PRODUCTION TECHNICIAN Ot J98.4 07/27/2015 YESENIA SANTILLAN MANUFACTURING PRODUCTION TECHNICIAN Ot R06.09 08/08/2015 YESENIA SANTILLAN MANUFACTURING PRODUCTION TECHNICIAN Ot E66.9 OBESITY, UNSPECIFIED 08/08/2015 YESENIA SANTILLAN MANUFACTURING PRODUCTION TECHNICIAN Ot J98.4 OTHER DISORDERS OF LUNG 08/08/2015 YESENIA SANTILLAN MANUFACTURING PRODUCTION TECHNICIAN Ot R06.09 OTHER FORMS OF DYSPNEA 08/11/2015 ABOULROHIT LYNN MD Ot E11.22 TYPE 2 DIABETES MELLITUS W DIABETIC POULTRY HATCHERY MANAGER 08/11/2015 ROHIT CAVAZOS MD Ot E66.2 MORBID [...] E11.22 TYPE 2 DIABETES MELLITUS W DIABETIC POULTRY HATCHERY MANAGER 08/23/2015 ROHIT CAVAZOS MD Ot E66.2 MORBID [...] I10 ESSENTIAL (PRIMARY) HYPERTENSION 08/24/2015 SAM MOBLEY [facility]PORATE ACCOUNT DIRECTOR Ot R06.09 OTHER FORMS OF DYSPNEA 09/06/2015 SAM MOBLEY [facility]PORATE ACCOUNT DIRECTOR Ot I10 ESSENTIAL (PRIMARY) HYPERTENSION 09/06/2015 SAM MOBLEY [facility] CORPORATE ACCOUNT DIRECTOR Ot R06.09 OTHER FORMS OF DYSPNEA 10/16/2015 NAYELI CAVAZOS MD Ot E11.22 TYPE 2 DIABETES MELLITUS W DIABETIC POULTRY HATCHERY MANAGER 10/16/2015 NAYELI CAVAZOS MD Ot E66.2 MORBID [...] E11.22 TYPE 2 DIABETES MELLITUS W DIABETIC POULTRY HATCHERY MANAGER 11/05/2015 NAYELI CAVAZOS MD Ot E66.2 MORBID [...] E11.22 TYPE 2 DIABETES MELLITUS W DIABETIC POULTRY HATCHERY MANAGER 12/19/2015 ROHIT CAVAZOS MD, Ot E66.2 MORBID [...] E11.22 TYPE 2 DIABETES MELLITUS W DIABETIC POULTRY HATCHERY MANAGER 12/21/2015 ROHIT CAVAZOS MD Ot E66.2 MORBID [...] OF OTHER MENTAL AND BEH 12/31/2015 ALFONSO ESTRADA MD, Ot E11.622 TYPE 2 DIABETES MELLITUS WITH OTHER SKIN 12/31/2015 ALFONSO ESTRADA MD, Ot E66.01 MORBID (SEVERE) OBESITY DUE TO EXCESS CA 12/31/2015 ALFONSO ESTRADA MD, Ot I87.333 CHRONIC VENOUS HTN W ULCER AND INFLAM OF 12/31/2015 ALFONSO ESTRADA MD, Ot I89.0 LYMPHEDEMA, NOT ELSEWHERE CLASSIFIED 12/31/2015 ALFONSO ESTRADA MD, Ot L97.211 NON-PRS CHRONIC [...] E11.22 TYPE 2 DIABETES MELLITUS W DIABETIC POULTRY HATCHERY MANAGER 01/07/2016 ROHIT CAVAZOS MD, Ot E66.2 MORBID [...] E11.22 TYPE 2 DIABETES MELLITUS W DIABETIC POULTRY HATCHERY MANAGER 03/16/2016 ROHIT CAVAZOS MD Ot E66.2 MORBID [...] E11.22 TYPE 2 DIABETES MELLITUS W DIABETIC POULTRY HATCHERY MANAGER 03/17/2016 ROHIT CAVAZOS MD Ot E66.2 MORBID [...] DISEASE, STAGE 2 (MILD) 03/17/2016 DIRK AMEZCUA, RHOIT Ot R60.0 LOCALIZED EDEMA 03/17/2016 DIRK AMEZCUA, [...] CCDS Ot V58.69 OTH MED,LT,CURRENT USE 04/24/2016 DIONIICO AMEZCUA FACC, ALI FACP CCDS Ot V85.43 [...] ULCER OF LEFT CALF 04/24/2016 SAM [facility]PORATE ACCOUNT DIRECTOR Ot 276.7 HYPERPOTASSEMIA 04/24/2016 DIONICIO AMEZCUA FACC, [...] KIDNEY DISEASE, STAGE III (MODER 04/24/2016 FLORIN GREENBEGR MD, FACC FACP CCDS Ot 729.5 PAIN IN LIMB 04/24/2016 DIONICIO AMEZCUA [facility], ALI FACP CCDS Ot 250.00 DIAB RONAL WO COMPL, TYPE II OR UNSPEC TY 04/24/2016 DIONICIO AMEZCUA [facility], ALI FACP CCDS Ot 729.5 PAIN IN LIMB 04/24/2016 SAM MOB[facility]PORATE ACCOUNT DIRECTOR Ot 250.00 DIAB RONAL WO COMPL, TYPE II OR UNSPEC TY 04/24/2016 SAM MOBLEY L HEALTHCARE CORPORATE ACCOUNT DIRECTOR Ot 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 04/24/2016 SAM MOBLEY [facility]PORATE ACCOUNT DIRECTOR Ot 585.3 CHRONIC KIDNEY DISEASE, STAGE III (MODER 04/24/2016 SAM M[facility]PORATE ACCOUNT DIRECTOR Ot 780.57 UNSPECIFIED SLEEP APNEA 04/24/2016 SAM M[facility]PORATE ACCOUNT DIRECTOR Ot 585.3 CHRONIC KIDNEY DISEASE, STAGE III (MODER 04/24/2016 KG CAVAZOS MDINE Ot 250.00 DIAB RONAL WO COMPL, TYPE II OR UNSPEC TY 04/24/2016 ROHIT CAVAZOS MD Ot 272.4 HYPERLIPIDEMIA NEC/NOS 04/24/2016 [...] 04/24/2016 ALFONSO ESTRADA MD, Ot I70.242 ATHSCL AKHIOK ARTERIES OF LEFT LEG W ULC 04/24/2016 ALFONSO ESTRADA MD, Ot I87.333 CHRONIC VENOUS HTN W ULCER AND INFLAM OF 04/24/2016 ALFONSO ESTRADA MD, Ot I89.0 LYMPHEDEMA, NOT ELSEWHERE CLASSIFIED 04/24/2016 ALFONSO ESTRADA MD, Ot L97.222 NON-PRESSURE CHRONIC ULCER OF LEFT CALF 04/24/2016 ALFONSO ESTRADA MD, Ot R22.42 LOCALIZED SWELLING, MASS AND LUMP, LEFT 04/24/2016 TAMIKA HILARIO DO Ot E66.9 OBESITY, UNSPECIFIED 04/24/2016 TAMKIA HILARIO DO Ot G47.30 SLEEP APNEA, UNSPECIFIED 04/24/2016 TAMIKA HILARIO DO Ot R06.09 OTHER FORMS OF DYSPNEA 04/24/2016 YESENIA SANTILLAN APRN Ot E66.9 OBESITY, UNSPECIFIED 04/24/2016 YESENIA SANTILLAN APRN Ot J98.4 OTHER DISORDERS OF LUNG 04/24/2016 YESENIA SANTILLAN APRN Ot R06.09 OTHER FORMS OF DYSPNEA 04/24/2016 ROHIT CAVAZOS MD Ot E11.22 TYPE 2 DIABETES MELLITUS W DIABETIC POULTRY HATCHERY MANAGER 04/24/2016 ROHIT CAVAZOS MD Ot E66.2 MORBID [...] OTHER MENTAL AND BEH 04/24/2016 [facility]PORATE ACCOUNT DIRECTOR Ot I10 ESSENTIAL (PRIMARY) HYPERTENSION 04/24/2016 SAM [facility]PORATE ACCOUNT DIRECTOR Ot R06.09 OTHER FORMS OF DYSPNEA 04/24/2016 NAYELI CAVAZOS MD Ot E11.22 TYPE 2 DIABETES MELLITUS W DIABETIC POULTRY HATCHERY MANAGER 04/24/2016 NAYELI CAVAZOS MD Ot E66.2 MORBID [...] E11.22 TYPE 2 DIABETES MELLITUS W DIABETIC POULTRY HATCHERY MANAGER 04/24/2016 ROHIT CAVAZOS MD Ot E66.2 MORBID [...] ROHIT CAVAZOS MD Ot M79.7 FIBROMYALGIA 04/10/2017 ROHIT CAVAZOS MD Ot N18.2 CHRONIC KIDNEY [...] MD Ot R60.0 LOCALIZED EDEMA 04/17/2017 ROHIT CAVAZOS MD Ot Z86.59 PERSONAL HISTORY [...] E11.22 TYPE 2 DIABETES MELLITUS W DIABETIC POULTRY HATCHERY MANAGER 07/27/2017 ROHIT CAVAZOS MD Ot E66.2 MORBID [...] E11.22 TYPE 2 DIABETES MELLITUS W DIABETIC POULTRY HATCHERY MANAGER 08/07/2017 ROHIT CAVAZOS MD Ot E66.2 MORBID [...] Procedures Code Description [place] [id number] ROUTINE VENIPUNCTURE 02/23/2012 83003 CMP 02/23/2012 19915 LIPID PANEL 02/23/[id number] GFR CALC (RESULT ONLY) 02/23/2012 15476 DEBRIDE NAIL 1-5 05/07/2012 89738 A1C (IN-HOUSE) 06/14/2012 45800 ROUTINE VENIPUNCTURE 07/16/2012 14320 CMP 07/16/2012 [id number] GFR CALC (RESULT ONLY) 07/16/2012 39837 ROUTINE VENIPUNCTURE 08/06/2012 51388 MYOGLOBIN 08/06/2012 46982 ROUTINE VENIPUNCTURE 08/23/2012 68067 CMP 08/23/2012 75616 LIPID PANEL 08/23/2012 [id number] GFR CALC (RESULT ONLY) 08/23/2012 74045 DEBRIDE NAIL 1-5 09/10/2012 58040 ROUTINE VENIPUNCTURE 10/15/2012 54852 CMP 10/15/2012 32014 LIPID PANEL 10/15/2012 [id number] GFR CALC (RESULT ONLY) 10/15/2012 25386 A1C (IN-HOUSE) 10/19/2012 13504 DEBRIDE NAIL >6 12/10/2012 27840 ROUTINE VENIPUNCTURE 12/31/2012 24235 CMP 12/31/2012 28638 LIPID PANEL 12/31/2012 1121692 GFR CALC (RESULT ONLY) 12/31/2012 82354 A1C (IN-HOUSE) 02/01/2013 50961 ROUTINE VENIPUNCTURE 03/10/2013 47476 LIPID PANEL 03/10/2013 43131 TSH 03/10/2013 34299 A1C (IN-HOUSE) 05/10/2013 81307 ROUTINE VENIPUNCTURE 08/09/2013 96242 A1C (IN-HOUSE) 08/09/2013 26877 CMP 08/09/2013 81894 LIPID PANEL 08/09/2013 [id number] GFR CALC (RESULT ONLY) 08/09/2013 36994 ROUTINE VENIPUNCTURE 10/25/2013 1653810 GFR CALC (RESULT ONLY) 10/25/2013 35546 CMP 10/25/2013 95967 LIPID PANEL 10/25/2013 87480 TSH 10/25/2013 40291 A1C (IN-HOUSE) 12/05/2013 49672 ROUTINE VENIPUNCTURE 03/08/2014 25482 BNP 03/08/2014 40099 A1C (IN-HOUSE) 03/08/2014 2563854 GFR CALC (RESULT ONLY) 03/08/2014 44936 BMP 03/08/2014 Results Test Result Range Serum [...] culture - 12/21/15 13:00 Bacterial urine culture [id number] NRG COLONY COUNT >100,000/ML NRG FTX;REPORTABLE NONENTEROCOCCUS [facility] Bacterial susceptibility panel - 12/21/15 13:00 Gentamicin [...] culture - 05/01/16 15:30 Bacterial urine culture [id number] NRG COLONY COUNT 10,000/ML - 100,000/ML NRG [...] culture - 03/23/17 14:30 Bacterial urine culture [id number] NRG COLONY COUNT >100,000/ML NRG FTX;REPORTABLE SENSITIVITY [...] culture - 04/03/17 11:00 Bacterial urine culture [id number] NRG COLONY COUNT 10,000/ML - 100,000/ML NRG [...] culture - 07/22/17 14:30 Bacterial urine culture [id number] NRG COLONY COUNT >100,000/ML NRG FTX;REPORTABLE SENSITIVITY [...] susceptibility test by minimum inhibitory concentration - [facility] Automated blood complete blood count (hemogram) panel [...] NEGATIVE NEGATIVE Urine propoxyphene detection NEGATIVE NEGATIVE Arterial blood gas measurement - 10/01/17 20:25 Blood pCO2 45 mm[Hg] 35-45 Blood pO2 99 mm[Hg] 79-93 Arterial blood bicarbonate measurement (moles/volume) 30 mmol/L 23-27 Arterial blood base excess by calculation 5.4 mmol/L -2.5 -2.5 Arterial blood oxygen saturation measurement 98 % 94-100 * Inhaled oxygen flow rate 6L NRG Arterial blood pH measurement with patient temperature correction 7.43 7.37-7.43 Arterial blood carbon dioxide, total measurement (moles/volume) 31.5 mmol/L 21.0-31.0 Body site LEFT RADIAL NRG Assessment of wrist artery patency prior to arterial puncture YES- POS NRG Setting of ventilation mode NO NRG Measurement of body temperature 95.6 NRG Encounters ACCT No. Visit Date/Time Discharge Status Pt. Type Provider Facility Loc./Unit Complaint [id number] 08/07/2014 14:56:00 08/07/2014 23:59:59 CLS Outpatient KATHYA FISCHER APRN [id number] 07/05/2014 15:42:00 07/05/2014 23:59:59 CLS Outpatient KATHYA FISCHER APRN [id number] 07/05/2014 15:42:00 07/05/2014 23:59:59 CLS Outpatient KATHYA FISCHER APRN [id number] 05/22/2014 14:19:00 05/22/2014 23:59:59 CLS Outpatient KATHYA FISCHER APRN [id number] 05/08/2014 14:10:00 05/08/2014 23:59:59 CLS Outpatient KATHYA FISCHER APRN [id number] 03/08/2014 14:54:00 03/08/2014 23:59:59 CLS Outpatient KATHYA FISCHER APRN [id number] 03/08/2014 14:54:00 03/08/2014 23:59:59 CLS Outpatient KATHYA FISCHER APRN [id number] 12/05/2013 15:54:00 12/05/2013 23:59:59 CLS Outpatient KATHYA FISCHER APRN [id number] 12/05/2013 15:54:00 12/05/2013 23:59:59 CLS Outpatient KATHYA FISCHER APRN [id number] 10/25/2013 08:27:00 10/25/2013 23:59:59 CLS Outpatient DAKOTA TEJADA DO [id number] 08/12/2013 14:52:00 08/12/2013 23:59:59 CLS Outpatient ÁNGEL SPIVEY MD [id number] 08/09/2013 08:17:00 08/09/2013 23:59:59 CLS Outpatient KATHYA FISCHER APRN [id number] 05/10/2013 13:26:00 05/10/2013 23:59:59 CLS Outpatient KATHYA FISCHER APRN [id number] 05/10/2013 13:26:00 05/10/2013 23:59:59 CLS Outpatient KATHYA FISCHER APRN [id number] 03/11/2013 11:46:00 03/11/2013 23:59:59 CLS Outpatient KATHYA FISCHER APRN [id number] 02/01/2013 13:58:00 02/01/2013 23:59:59 CLS Outpatient KATHYA FISCHER APRN [id number] 02/01/2013 13:58:00 02/01/2013 23:59:59 CLS Outpatient TERRELL DO DAKOTA Alford [id number] 12/31/2012 10:22:00 12/31/2012 23:59:59 CLS Outpatient DAKOTA TEJADA DO [id number] 07/16/2012 08:54:00 07/16/2012 23:59:59 CLS Outpatient [id number] 06/14/2012 14:00:00 06/14/2012 23:59:59 CLS Outpatient [id number] 06/14/2012 14:00:00 06/14/2012 23:59:59 CLS Outpatient [id number] 05/07/2012 07:53:00 05/07/2012 23:59:59 CLS Outpatient DAKOTA TEJADA DO [id number] 03/16/2012 14:40:00 03/16/2012 23:59:59 CLS Outpatient KATHYA FISCHER APRN [id number] 02/23/2012 09:56:00 02/23/2012 23:59:59 CLS Outpatient KATHYA FISCHER APRN [id number] 12/10/2012 07:51:00 Document Registration [id number] 10/19/2012 14:39:00 Document Registration [id number] 10/19/2012 14:39:00 Document Registration [id number] 10/15/2012 09:05:00 Document Registration [id number] 09/10/2012 10:34:00 Document Registration [id number] 09/06/2012 08:47:00 Document Registration [id number] 08/23/2012 08:54:00 Document Registration [id number] 08/06/2012 10:41:00 Document Registration [id number] 06/05/2016 08:40:00 Document Registration [id number] 06/06/2016 17:10:00 Document Registration [id number] 07/01/2017 14:20:00 07/01/2017 23:59:59 CLS Outpatient KATHYA FISCHER APRN [facility] [id number] 06/05/2016 08:40:00 Document Registration [id number] 01/29/2015 14:41:24 ACT Document Registration [id number] 07/22/2017 14:35:00 07/22/2017 23:59:59 CLS Outpatient ROHIT CAVAZOS MD [facility] LAB N18.2,R60.0,E87.5, Z86.59,I10 [id number] 07/21/2017 11:42:00 07/21/2017 23:59:59 CLS Outpatient DIONICIO AMEZCUA FACC, FLORIN WEINBERG CCDS [facility] CARD CHEST PAIN SYNDROME [id number] 04/03/2017 15:54:00 04/03/2017 23:59:59 CLS Outpatient ROHIT CAVAZOS MD [facility] LAB N18.2,R60.0,E87.5, Z86.59,E66.2 [id number] 03/23/2017 14:28:00 03/23/2017 23:59:59 CLS Outpatient ROHIT CAVAZOS MD [facility] LAB N18.2 R60.0 E87.5 Z86.59 [id number] 07/31/2016 00:15:00 07/31/2016 23:59:59 CLS Preadmit ROHIT CAVAZOS MD [facility] LAB URINARY URGENCY [id number] 05/01/2016 13:24:00 07/30/2016 00:01:00 DIS Outpatient ROHIT CAVAZOS MD [facility] LAB URINARY URGENCY [id number] 07/03/2016 13:12:00 07/03/2016 23:59:59 CLS Outpatient ROHIT CAVAZOS MD [facility] LAB N18.2,R60.0,E78.5 [id number] 04/26/2016 15:37:00 05/01/2016 13:35:00 DIS Outpatient ROHIT CAVAZOS MD [facility] LAB CHRONIC KIDNEY DISEASE,HYPERLIPIDEMIA [id number] 03/17/2016 00:09:00 03/17/2016 23:59:59 CLS Preadmit ROHIT CAVAZOS MD [facility] LAB CHRONIC KIDNEY DISEASE STAGE 2 [id number] 12/21/2015 14:07:00 03/16/2016 00:01:00 DIS Outpatient ROHIT CAVAZOS MD [facility] LAB CHRONIC KIDNEY DISEASE STAGE 2 [id number] 12/31/2015 13:20:00 12/31/2015 16:00:00 DIS Outpatient ALFONSO ESTRADA MD [facility] WOUNDCARE [id number] 10/15/2015 15:21:00 10/15/2015 23:59:59 CLS Outpatient NAYELI CAVZAOS MD [facility] LAB CKD,EDEMA, HYPERKALEMIA [id number] 08/23/2015 13:55:00 08/23/2015 23:59:59 CLS Outpatient SAM MOBLEY [facility] CARD HTN,DYSPNEA [id number] 08/08/2015 16:12:00 08/08/2015 23:59:59 CLS Outpatient ROHIT CAVAZOS MD [facility] LAB CHRONIC KIDNEY DISEASE,EDEMA,SLEEP APNEA [id number] 07/26/2015 14:20:00 07/26/2015 23:59:59 CLS Outpatient YESENIA SANTILLAN APRN [facility] LAB OBESITY,CHUNG, RESTRICTIVE LUNG DISEASE [id number] 07/06/2015 14:41:00 07/06/2015 23:59:59 CLS Outpatient TAMIKA HILARIO DO [facility] RT DYSPNEA,SLEEP APNEA [id number] 07/04/2015 14:22:00 07/04/2015 15:00:00 DIS Outpatient ALFONSO ESTRADA MD [facility] WOUNDCARE [id number] 04/23/2015 14:56:00 04/23/2015 23:59:59 CLS Outpatient ALFONSO ESTRADA MD [facility] RAD LEFT THIGH SWELLING, ERYTHEMA,LOCALIZED TENDERNESS [id number] 04/09/2015 13:34:00 04/22/2015 00:01:00 DIS Outpatient ALFONSO ESTRADA MD [facility] WOUNDCARE [id number] 03/27/2015 12:49:00 03/27/2015 23:59:59 CLS Outpatient ALFONSO ESTRADA MD [facility] RAD VENOUS ULCER, LEFT VENOUS [id number] 03/23/2015 08:38:00 03/23/2015 23:59:59 CLS Outpatient ALFONSO ESTRADA MD [facility] LAB VENOUS ULCER L LEG LYMHEDMIA [id number] 01/17/2015 13:48:00 01/17/2015 00:01:00 DIS Outpatient ALFONSO ESTRADA MD [facility] WOUNDCARE [id number] 12/06/2014 12:30:00 12/12/2014 00:01:00 DIS Outpatient VARSHA HERNANDEZ DO [facility] WOUNDCARE [id number] 11/16/2014 09:46:00 11/16/2014 23:59:59 CLS Outpatient ROHIT CAVAZOS MD [facility] RAD CKD II [id number] 11/06/2014 11:04:00 11/06/2014 23:59:59 CLS Outpatient SAM MOBLEY [facility] LAB CKD [id number] 10/18/2014 15:52:00 10/18/2014 23:59:59 CLS Outpatient SAM MOBLEY [employer] [facility] LAB HTN,SLEEP APNEA,CKD [id number] 10/09/2014 13:41:00 10/09/2014 23:59:59 CLS Outpatient DIONICIO AMEZCUA FACC, ALI FACP CCDS [facility] LAB DIABETIC,PAIN AND SWELLING [id number] 10/06/2014 12:28:00 10/06/2014 23:59:59 CLS Outpatient DIONICIO AMEZCUA FACC, ALI FACP CCDS [facility] LAB HYPERKALEMIA [id number] 09/14/2014 13:52:00 09/14/2014 23:59:59 CLS Outpatient VARSHA HERNANDEZ DO [facility] RAD PAIN,SWELLING, DIABETES [id number] 09/14/2014 13:48:00 09/14/2014 23:59:59 CLS Outpatient SAM MOBLEYP [facility] LAB HYPERKALCEMIA [id number] 09/11/2014 12:52:00 09/11/2014 23:59:59 CLS Outpatient DIONICIO AMEZCUA FACC, ALI FACP CCDS [facility] LAB PAIN SWELLING LOWER LEG VENOUS ULCERS LOWER EXTREM [id number] 03/21/2014 07:32:00 03/21/2014 23:59:59 CLS Outpatient DIONICIO AMEZCUA FACC, ALI FACP CCDS [facility] CARD CP,HLP,DM, [id number] 03/02/2013 07:53:00 03/02/2013 23:59:59 CLS Outpatient DIONICIO AMEZCUA FACC, ALI FACP CCDS [facility] CARD HLP,CP,HTN [id number] 10/01/2017 16:39:00 Document Registration
[2017-10-01 21:15] VITALS: BP 127/103
[2017-10-01] MEDS ORDERED: LABETALOL HCL 20 MG/4 ML VIAL IV PRN (22:15)
[2017-10-01] MEDS: D5 1/2 NS W/KCL 20 MEQ/L 1,000 ML IV SCH (22:16)
[2017-10-01 23:57] VITALS: BP 144/95
[2017-10-02] VITALS (9 sets, daily range): BP systolic 123–147; BP diastolic 78–96
[2017-10-02 04:15] LABS: BASOPHILS % (AUTO) 0 % (0-10); EOSINOPHILS # (AUTO) 0.1 10^3/uL (0.0-0.3); EOSINOPHILS % (AUTO) 1 % (0-10); HEMATOCRIT 43 % (40-54); HEMOGLOBIN 13.7 G/DL (13.3-17.7); LYMPHOCYTES # (AUTO) 0.9 X 10^3 (1.0-4.0); LYMPHOCYTES % (AUTO) 9 % (12-44); MEAN CORPUSCULAR HEMOGLOBIN 28 PG (25-34); MEAN CORPUSCULAR HGB CONC 32 G/DL (32-36); MEAN CORPUSCULAR VOLUME 87 FL (80-99); MEAN PLATELET VOLUME 9.6 FL (7.4-10.4); MONOCYTES # (AUTO) 0.6 X 10^3 (0.0-1.0); MONOCYTES % (AUTO) 7 % (0-12); NEUTROPHILS # (AUTO) 7.9 X 10^3 (1.8-7.8); NEUTROPHILS % (AUTO) 82 % (42-75); PLATELET COUNT 187 10^3/uL (130-400); RED BLOOD COUNT 4.89 10^6/uL (4.35-5.85); RED CELL DISTRIBUTION WIDTH 16.1 % (10.0-14.5); WHITE BLOOD COUNT 9.6 10^3/uL (4.3-11.0)
[2017-10-02 04:33] LABS: ALANINE AMINOTRANSFERASE 20 U/L (0-55); ALKALINE PHOSPHATASE 79 U/L (40-136); BILIRUBIN,TOTAL 1.2 MG/DL (0.1-1.0); BUN/CREATININE RATIO 18; CALCIUM 9.5 MG/DL (8.5-10.1); CARBON DIOXIDE 26 MMOL/L (21-32); CHLORIDE 102 MMOL/L (98-107); CREATININE SERUM 1.01 MG/DL (0.60-1.30); GFR ESTIMATED > 60; GLUCOSE 195 MG/DL (70-105); POTASSIUM 3.4 MMOL/L (3.6-5.0); SODIUM 141 MMOL/L (135-145); TOTAL PROTEIN 6.8 GM/DL (6.4-8.2)
[2017-10-02] MEDS ORDERED: inSUlin ASPART (NovoLOG) 1 UNIT/0.01 ML (CHARGE PER UNIT) SC SCH ×3 (06:00→06:45)
[2017-10-02] MEDS: D5 1/2 NS W/KCL 20 MEQ/L 1,000 ML IV SCH ×2 (08:25→17:56)
--- NOTE | 2017-10-02 08:32 | History & Physicial (CHS) ---
HPI History of Present Illness: Arrived to ED via EMS with frequent falls, inability to void, lack of feeling in feet and legs (which is an ongoing problem). Family arrives later and reports that pt is not very communicative and they are not sure who called EMS or what the exact details of the day had been. Majority of history obtained from records. Pt received ativan for sedation for imaging in ED and remained quite somnolent after that, requiring supplemental O2 - but would arouse to painful stimuli. Admit for treatment of UTI and safety evaluation for independent living. Source: RN/MD, old records Date seen by provider: Oct 02, 2017 Time Seen by Provider: 11:20 Attending Physician Jess Rios David F MD Consult Date of Admission Oct 01, 2017 at 19:20 Home Medications Home Medications Reviewed patient Home Medication Reconciliation performed by pharmacy medication reconciliations crown and bridge technician and/or nursing. Patients Allergies have been reviewed. Allergies Coded Allergies: Sulfa (Sulfonamide Antibiotics) (Unverified Allergy, Unknown, 03/21/14) latex (Unverified Allergy, Unknown, 03/21/14) raspberry (Unverified Allergy, Unknown, 03/21/14) zinc oxide (Unverified Allergy, Unknown, 03/21/14) Uncoded Allergies: ARTIFICIAL SWEETNERS (Allergy, Unknown, 03/21/14) UYW-Ovagly-Rygfjw Hx Patient Social History Marrital Status: single Living Status: lives independently with father Employed/Student: unemployed Alcohol Use: Denies Use Recreational Drug Use: No Smoking Status: Unknown if Ever Smoked Type Used: Cigarettes 2nd Hand Smoke Exposure: No Recent Foreign Travel: No Contact w/other who traveled: No Recent Hopitalizations: No Recent Infectious Disease Expo: No Physical Abuse Screen: No Sexual Abuse: No Immunizations Up To Date Tetanus Booster (TDap): Unknown Past Medical History Obstructive Sleep Apnea HTN Type II Diabetes Fibromyalgia Arthritis Polyneuropathy Polyarthropathy BPH Morbid Obesity, BMI >50 Venous Insufficiency Mortons Neuroma Surgical Hx: Tonsillectomy Family Medical History Significant Family History: Heart Disease, Cancer, CAD Over 55 Years Old, Diabetes, Hypertension, Stroke, Vascular Disease Review of Systems (CHC) Constitutional: see HPI EENTM: see HPI Respiratory: no symptoms reported Cardiovascular: no symptoms reported Gastrointestinal: no symptoms reported Genitourinary: no symptoms reported Musculoskeletal: see HPI Skin: no symptoms reported Psychiatric/Neurological: No Symptoms Reported Reviewed Test Results Reviewed Test Results Lab Laboratory Tests Test 10/01/17 16:15 10/01/17 16:48 10/01/17 18:44 10/01/17 20:25 Range/Units White Blood Count 8.9 4.3-11.0 10^3/uL Red Blood Count 5.02 4.35-5.85 10^6/uL Hemoglobin 14.3 13.3-17.7 G/DL Hematocrit 43 40-54 % Mean Corpuscular Volume 86 80-99 FL Mean Corpuscular Hemoglobin 29 25-34 PG Mean Corpuscular Hemoglobin Concent 33 32-36 G/DL Red Cell Distribution Width 15.9 H 10.0-14.5 % Platelet Count 209 130-400 10^3/uL Mean Platelet Volume 10.0 7.4-10.4 FL Neutrophils (%) (Auto) 78 H 42-75 % Lymphocytes (%) (Auto) 13 12-44 % Monocytes (%) (Auto) 7 0-12 % Eosinophils (%) (Auto) 2 0-10 % Basophils (%) (Auto) 0 0-10 % Neutrophils # (Auto) 6.9 1.8-7.8 X 10^3 Lymphocytes # (Auto) 1.1 1.0-4.0 X 10^3 Monocytes # (Auto) 0.6 0.0-1.0 X 10^3 Eosinophils # (Auto) 0.2 0.0-0.3 10^3/uL Basophils # (Auto) 0.0 0.0-0.1 10^3/uL Prothrombin Time 17.5 H 12.2-14.7 SEC INR Comment 1.4 0.8-1.4 Activated Partial Thromboplast Time 27 24-35 SEC Sodium Level 142 135-145 MMOL/L Potassium Level 3.4 L 3.6-5.0 MMOL/L Chloride Level 101 98-107 MMOL/L Carbon Dioxide Level 28 21-32 MMOL/L Anion Gap 13 5-14 MMOL/L Blood Urea Nitrogen 23 H 7-18 MG/DL Creatinine 1.29 0.60-1.30 MG/DL Estimat Glomerular Filtration Rate 57 BUN/Creatinine Ratio 18 Glucose Level 166 H 70-105 MG/DL Calcium Level 10.0 8.5-10.1 MG/DL Magnesium Level 2.0 1.8-2.4 MG/DL Total Bilirubin 1.0 0.1-1.0 MG/DL Aspartate Amino Transf (AST/SGOT) 25 5-34 U/L Alanine Aminotransferase (ALT/SGPT) 24 0-55 U/L Alkaline Phosphatase 86 40-136 U/L Total Creatine Kinase 225 H 30-200 U/L Creatine Kinase MB 3.7 <6.6 NG/ML Troponin I < 0.30 <0.30 NG/ML B-Type Natriuretic Peptide 46.7 <100.0 PG/ML Total Protein 7.3 6.4-8.2 GM/DL Albumin 4.3 3.2-4.5 GM/DL TSH [place] Testing 1.04 0.35-4.94 UIU/ML Serum Alcohol < 10 <10 MG/DL Glucometer 167 H 70-110 MG/DL Urine Color YELLOW Urine Clarity VERY CLOUDY H Urine pH 6 5-9 Urine Specific Willis 1.015 L 1.016-1.022 Urine Protein 1+ H NEGATIVE Urine Glucose (UA) NEGATIVE NEGATIVE Urine Ketones NEGATIVE NEGATIVE Urine Nitrite POSITIVE H NEGATIVE Urine Bilirubin NEGATIVE NEGATIVE Urine Urobilinogen NORMAL NORMAL MG/DL Urine Leukocyte Esterase 3+ H NEGATIVE Urine RBC (Auto) 1+ H NEGATIVE Urine RBC 0-2 /HPF Urine WBC >100 H /HPF Urine Squamous Epithelial Cells 0-2 /HPF Urine Crystals NONE /LPF Urine Bacteria LARGE H /HPF Urine Casts PRESENT /LPF Urine Hyaline Casts 0-2 H /LPF Urine Mucus NEGATIVE /LPF Urine Culture Indicated YES Urine Opiates Screen POSITIVE H NEGATIVE Urine Oxycodone Screen NEGATIVE NEGATIVE Urine Methadone Screen NEGATIVE NEGATIVE Urine Propoxyphene Screen NEGATIVE NEGATIVE Urine Barbiturates Screen NEGATIVE NEGATIVE Ur Tricyclic Antidepressants Screen POSITIVE H NEGATIVE Urine Phencyclidine Screen NEGATIVE NEGATIVE Urine Amphetamines Screen NEGATIVE NEGATIVE Urine Methamphetamines Screen NEGATIVE NEGATIVE Urine Benzodiazepines Screen NEGATIVE NEGATIVE Urine Cocaine Screen NEGATIVE NEGATIVE Urine Cannabinoids Screen NEGATIVE NEGATIVE Blood Gas Puncture Site LEFT RADIAL Blood Gas Patient Temperature 95.6 Arterial Blood pH 7.43 7.37-7.43 Arterial Blood Partial Pressure CO2 45 35-45 MMHG Arterial Blood Partial Pressure O2 99 H 79-93 MMHG Arterial Blood HCO3 30 H 23-27 MMOL/L Arterial Blood Total CO2 31.5 H 21.0-31.0 MMOL/L Arterial Blood Oxygen Saturation 98 94-100 % Arterial Blood Base Excess 5.4 H -2.5-2.5 MMOL/L Vitaly Test YES-POS Blood Gas Ventilator Setting NO Blood Gas Inspired Oxygen 6L Test 10/01/17 23:56 10/02/17 03:55 Range/Units Glucometer 159 H 70-110 MG/DL White Blood Count 9.6 4.3-11.0 10^3/uL Red Blood Count 4.89 4.35-5.85 10^6/uL Hemoglobin 13.7 13.3-17.7 G/DL Hematocrit 43 40-54 % Mean Corpuscular Volume 87 80-99 FL Mean Corpuscular Hemoglobin 28 25-34 PG Mean Corpuscular Hemoglobin Concent 32 32-36 G/DL Red Cell Distribution Width 16.1 H 10.0-14.5 % Platelet Count 187 130-400 10^3/uL Mean Platelet Volume 9.6 7.4-10.4 FL Neutrophils (%) (Auto) 82 H 42-75 % Lymphocytes (%) (Auto) 9 L 12-44 % Monocytes (%) (Auto) 7 0-12 % Eosinophils (%) (Auto) 1 0-10 % Basophils (%) (Auto) 0 0-10 % Neutrophils # (Auto) 7.9 H 1.8-7.8 X 10^3 Lymphocytes # (Auto) 0.9 L 1.0-4.0 X 10^3 Monocytes # (Auto) 0.6 0.0-1.0 X 10^3 Eosinophils # (Auto) 0.1 0.0-0.3 10^3/uL Basophils # (Auto) 0.0 0.0-0.1 10^3/uL Sodium Level 141 135-145 MMOL/L Potassium Level 3.4 L 3.6-5.0 MMOL/L Chloride Level 102 98-107 MMOL/L Carbon Dioxide Level 26 21-32 MMOL/L Anion Gap 13 5-14 MMOL/L Blood Urea Nitrogen 18 7-18 MG/DL Creatinine 1.01 0.60-1.30 MG/DL Estimat Glomerular Filtration Rate > 60 BUN/Creatinine Ratio 18 Glucose Level 195 H 70-105 MG/DL Calcium Level 9.5 8.5-10.1 MG/DL Total Bilirubin 1.2 H 0.1-1.0 MG/DL Aspartate Amino Transf (AST/SGOT) 24 5-34 U/L Alanine Aminotransferase (ALT/SGPT) 20 0-55 U/L Alkaline Phosphatase 79 40-136 U/L Total Protein 6.8 6.4-8.2 GM/DL Albumin 4.0 3.2-4.5 GM/DL Physical Exam-(CHC) Physical Exam Vital Signs VS - Last 72 Hours, by Label 10/01/17 10/01/17 10/01/17 10/01/17 16:00 18:30 19:14 21:05 Temp 97.6 Pulse 80 Resp 24 B/P (MAP) 140/92 (108) Pulse Ox 92 97 O2 Delivery FI02 Nasal Cannula OxyMask O2 Flow Rate 3.00 6.00 FiO2 91 10/01/17 10/01/17 10/01/17 10/01/17 21:05 21:15 21:22 23:57 Temp 97.6 98.1 98.9 Pulse 80 90 90 89 Resp 24 28 16 B/P (MAP) 140/92 (108) 127/103 (111) 144/95 (111) Pulse Ox 92 99 97 O2 Delivery Nasal Cannula OxyMask OxyMask O2 Flow Rate 3.00 6.00 6.00 10/02/17 10/02/17 10/02/17 10/02/17 00:00 01:00 03:49 04:00 Temp 98.7 Pulse 95 95 Resp 14 B/P (MAP) 123/96 (105) Pulse Ox 97 97 97 O2 Delivery OxyMask OxyMask OxyMask O2 Flow Rate 6.00 6.00 6.00 10/02/17 10/02/17 10/02/17 10/02/17 07:00 07:00 08:00 08:50 Pulse 93 89 96 Resp 13 14 B/P (MAP) 147/95 (112) 123/94 (104) Pulse Ox 94 98 97 O2 Delivery OxyMask OxyMask OxyMask O2 Flow Rate 6.00 6.00 6.00 10/02/17 10/02/17 10/02/17 10/02/17 08:56 09:00 09:30 10:00 Temp 97.8 Pulse 92 87 Resp 16 11 B/P (MAP) 141/91 (108) 139/92 (108) Pulse Ox 97 97 99 O2 Delivery OxyMask OxyMask OxyMask O2 Flow Rate 6.00 6.00 6.00 10/02/17 10/02/17 10/02/17 10/02/17 10:16 11:00 11:21 12:00 Pulse 93 Resp 23 B/P (MAP) 129/92 (104) Pulse Ox 99 98 O2 Delivery OxyMask OxyMask Room Air Room Air O2 Flow Rate 6.00 2.00 10/02/17 10/02/17 10/02/17 10/02/17 12:00 13:00 15:23 15:45 Temp 98.1 98.1 Pulse 93 98 Resp 20 B/P (MAP) 140/96 (111) Pulse Ox 98 O2 Delivery Room Air Room Air 10/02/17 10/02/17 10/02/17 19:00 20:00 20:21 Temp 100.4 Pulse 99 101 Resp 16 B/P (MAP) 128/78 (95) Pulse Ox 96 O2 Delivery Room Air Room Air Capillary Refill : Less Than 3 Seconds General Appearance: WD/WN, no apparent distress Eyes: Bilateral Eye Normal Inspection, Bilateral Eye EOMI HEENT: PERRL/EOMI; No pale conjunctivae (R), No pale conjunctivae (L), No photophobia; other (tenderness of nasal bridge) Neck: non-tender, full range of motion, supple, normal inspection Respiratory: chest non-tender, lungs clear, normal breath sounds, no respiratory distress, no accessory muscle use Cardiovascular: regular rate, rhythm, no gallop, systolic murmur Gastrointestinal: normal bowel sounds, non tender, soft, no organomegaly, no pulsatile mass Rectal: deferred Extremities: normal range of motion, non-tender, no calf tenderness, swelling Neurologic/Psychiatric: 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 II-XII nml as tested, alert, normal mood/affect, sensory deficit Skin: normal color, warm/dry Assessment/Plan Assessment/Plan Admission Dx Sepsis UTI Weakness Falls Type II Diabetes Severe Polyneuropathy Fibromyalgia Chronic Opiate Use Admission Status: Inpatient Order (span 2 midnights) Reason for Inpatient Admission: treatment and stabilization of admitting conditions (1) Sepsis Status: Acute Assessment & Plan: -UTI with weakness, falls, altered mental status Qualifiers: Qualified Codes: A41.9 - Sepsis, unspecified organism (2) UTI (urinary tract infection) Status: Acute Assessment & Plan: 10/02 -rocephin day 2 -continue abx -culture pending Qualifiers: Qualified Codes: N30.01 - Acute cystitis with hematuria (3) Altered mental status Status: Acute Assessment & Plan: 10/02 -pt making very little sense, answering questions inappropriately Qualifiers: Qualified Codes: R40.4 - Transient alteration of awareness (4) Weakness Status: Acute Assessment & Plan: 10/02 -multiple falls yesterday, unclear if he has had falls before this -pt currently lives at home with his father that he helps care for, but patient does not seem capable at this time of caring for himself due to his multiple medical conditions -suspect pt will need at least brief skilled stay after discharge, will have PT evaluate pt (5) Multiple falls Status: Acute Assessment & Plan: see above (6) Neuropathy Status: Chronic Assessment & Plan: 10/02 -severe polyneuropathy, likely a contributor to falls (7) Type II diabetes mellitus with complication Status: Chronic Assessment & Plan: 10/02 -A1C in AM Qualifiers: Qualified Codes: E11.8 - Type 2 diabetes mellitus with unspecified complications (8) Obstructive sleep apnea Status: Chronic Assessment & Plan: 10/02 -pt to have family member bring in home CPAP (9) Fibromyalgia Status: Chronic Assessment & Plan: 10/02 -pt on multiple medications for this, including Morphine ER BID (10) Morbid obesity with BMI of 50.0-59.9, adult Status: Chronic (11) Elevated liver enzymes Clinical Quality Measures DVT/VTE Risk/Contraindication: Risk Factor Score Per Nursin RFS Level Per Nursing on Admit: 4+=Very High Copy Copies To 1: [facility]/JESS BRAR DO Oct 02, 2017 08:32
[2017-10-02] MEDS ORDERED: LIDO700A45 TOP (08:49)
[2017-10-02] MEDS ORDERED: DULO30CA48 PO (08:49)
[2017-10-02] MEDS ORDERED: PREG200C PO (08:49)
[2017-10-02] MEDS ORDERED: MORP-33 PO (08:49)
[2017-10-02] MEDS ORDERED: GLIP10TA13 PO (08:49)
[2017-10-02] MEDS ORDERED: AMIT100T2 PO (08:49)
[2017-10-02] MEDS ORDERED: HYDR25TA4 PO (08:49)
[2017-10-02] MEDS ORDERED: ATOR40TA70 PO (08:49)
[2017-10-02] MEDS ORDERED: METO100T12 PO (08:49)
[2017-10-02] MEDS ORDERED: SILV50CR28 TOP (08:49)
[2017-10-02] MEDS ORDERED: BACL20TA PO (08:49)
[2017-10-02] MEDS ORDERED: POTA20TA15 PO (08:49)
[2017-10-02] MEDS ORDERED: FURO20TA4 PO ×2 (08:49→09:23)
[2017-10-02] MEDS ORDERED: EXEN2PEN SC (08:57)
[2017-10-02] MEDS ORDERED: BUDE10.2 INH (08:57)
[2017-10-02] MEDS ORDERED: DOCU-143 PO ×2 (09:23)
[2017-10-02] MEDS ORDERED: DULO60CA58 PO (09:23)
[2017-10-02] MEDS ORDERED: OMEG-82 PO (09:23)
[2017-10-02] MEDS ORDERED: ASPI325T32 PO (09:23)
[2017-10-02] MEDS ORDERED: ACET-168 PO (09:23)
[2017-10-02] MEDS ORDERED: TAMS0.4C2 PO (09:26)
[2017-10-02] MEDS: MUPIROCIN 2% OINT 22 GM (BACTROBAN) TUBE TOP SCH ×2 (10:34→20:25)
[2017-10-02] MEDS ORDERED: BACLOFEN 10 MG (LIORESAL) TAB PO PRN (13:00)
[2017-10-02] MEDS: PREGABALIN 100 MG (LYRICA) CAPSULE PO SCH ×2 (13:33→20:29)
[2017-10-02] MEDS: OMEGA 3 (FISH OIL) 1000 MG CAP PO SCH ×2 (13:33→20:26)
[2017-10-02] MEDS: DULoxetine 30 MG (CYMBALTA) CAP PO SCH ×2 (13:33→20:28)
--- NOTE | 2017-10-02 14:17 | Physical Therapy Evaluation ---
PT Evaluation-General Medical Diagnosis Admission Date Oct 01, 2017 at 19:20 Medical Diagnosis: falls Onset Date: Oct 01, 2017 Therapy Diagnosis Therapy Diagnosis: impaired mobility, strength, endurance Height/Weight Height (Feet): 5 Height (Inches): 10.00 Weight (Pounds): 360 Weight (Ounces): 6.0 Precautions Precautions/Isolations: Fall Prevention, Standard Precautions Referral Physician: Jess Rios DO Reason for Referral: Evaluation/Treatment Medical History Additional Medical History Past Medical History Obstructive Sleep Apnea HTN Type II Diabetes Fibromyalgia Arthritis Polyneuropathy Polyarthropathy BPH Morbid Obesity, BMI >50 Venous Insufficiency Mortons Neuroma Surgical Hx: Tonsillectomy Current History patient went to the ER via EMS with falls, inability to void, lack of feeling in legs Social History Home: Single Level Current Living Status: Entry Into Home: Ramp Patient lives with his elderly father. Prior/Core FIM Prior Level of Function Functional [place] Measure 0=Not Assessed/NA 4=Minimal Assistance 1=Total Assistance 5=Supervision or Setup 2=Maximal Assistance 6=Modified [place] 3=Moderate Assistance 7=Complete [place] Bed Mobility: 6 Transfers (B,C,W/C) (FIM): 6 Gait: 6 PT Evaluation-Current Subjective Patient in bed pre tx, agrees to PT, has 10/10 pain in his legs. Pt/Family Goals "to walk better eventually" Objective Patient Orientation: Person, Place, Situation Attachments: Gonzalez Catheter, IV ROM/Strength ROM Lower Extremities impaired generally due to obesity Strength Lower Extremities 4-/5 gross bilateral lower extremities Neuromuscular (Tone, Coordination, Reflexes) Patient has good peripheral vision and tracking. He states he has been having some visual issues though in his right eye. Sensory Vision: Hearing: Functional Sensation Right Lower Extremit: Impaired Sensation Left Lower Extremity: Impaired Sensation Lower Extremities Patient states he has impaired sensation from the waist down. However, he does have intact light touch sensation until you get to his feet. Transfers Functional [place] Measure 0=Not Assessed/NA 4=Minimal Assistance 1=Total Assistance 5=Supervision or Setup 2=Maximal Assistance 6=Modified [place] 3=Moderate Assistance 7=Complete [place] Transfers (B, C, W/C) (FIM): 3 Scootin Rollin Supine to/from Sit: 3 Sit to/from Stand: 5 Patient needed mod assist for supine to sit but was able to perform all other bed mobility and sit to stand with SBA. Patient stood twice and sat at the edge of the bed for about 15 min Gait Mode of Locomotion: Walk Anticipated Mode of Locomotion: Walk Gait (FIM): 1 Distance: 3'x2 Gait Level of Assist: 5 Gait Persons Needed: 1 Gait Assistive Device: FWW Comments/Gait Description Patient sidestepped 3' twice. Once to the foot of the bed and one back to the head of the bed so he could sit and lay back down. Balance Sitting Static: Fair Sitting Dynamic: Fair Standing Static: Fair Standing Dynamic: Fair Assessment/Needs Patient has impaired mobility, strength, endurance. Patient's obesity makes sitting and transitions in general very difficult but he can still do most of it without much assistance. Patient BTB post tx with nurse call, phone, tray, heel supports on. Rehab Potential: Fair PT Short Term Goals Short Term Goals Time Frame: Oct 09, 2017 Transfers (B,C,W/C) (FIM): 5 Gait (FIM): 1 Gait Distance Comment: 20' Gait Level of Assist: 5 Gait Assistive Device: FWW PT Plan Problem List Problem List: Activity Tolerance, Functional Strength, Safety, Balance, Gait, Transfer, Bed Mobility, ROM Treatment/Plan Treatment Plan: Continue Plan of Care Treatment Plan: Bed Mobility, Education, Functional Activity Ghulam, Functional Strength, Gait, Safety, Therapeutic Exercise, Transfers Treatment Duration: Oct 09, 2017 Frequency: 6 times per week Estimated Hrs Per Day: .25 hour per day (15-30') Patient and/or Family Agrees t: Yes Safety Risks/Education Patient Education: Gait Training, Transfer Techniques, Correct Positioning, Safety Issues Teaching Recipient: Patient Teaching Methods: Demonstration, Discussion Response to Teaching: Reinforcement Needed Discharge Recommendations Therapy D/C Recommendations: Home w/ Family Support Time/GCodes Time In: 1330 Time Out: 1355 Total Billed Treatment Time: 25 Total Billed Treatment 1 visit EVAlexandra 25' LEA LOPEZ PT Oct 02, 2017 14:17
[2017-10-02] MEDS: TAMSULOSIN 0.4 MG (FLOMAX) CAP PO SCH (17:56)
[2017-10-02] MEDS: FUROSEMIDE 20 MG (LASIX) TAB PO SCH (17:56)
[2017-10-02] MEDS ORDERED: ENOXAPARIN 40 MG/0.4 ML (LOVENOX) SYR SC SCH (18:00)
--- NOTE | 2017-10-02 18:23 | Wound Care Assessment ---
Wound Care Assessment Date Seen by Provider: Oct 02, 2017 Time Seen by Provider: 18:21 Chief Complaint Bilateral calf ulcers. HPI The patient is a 61 year old male with chronic recurrent bilateral venous insufficiency ulcers in a setting of poorly controlled diabetes, CHF, morbid obesity, lymphedema and a sedentary lifestyle. Smoking Status: Unknown if Ever Smoked Recreational Drug Use: No Alcohol Use: Denies Use Exam Vital Signs Date Time Temp Pulse Resp B/P (MAP) Pulse Ox O2 Delivery O2 Flow Rate FiO2 10/02/17 15:45 Room Air 10/02/17 15:23 98.1 98 20 140/96 (111) 98 10/02/17 11:00 2.00 10/01/17 19:14 91 Capillary Refill : Less Than 3 Seconds Results Laboratory Tests 10/01/17 18:44: Urine Color YELLOW, Urine Clarity VERY CLOUDYH, Urine pH 6, Urine Specific [place] 1.015L, Urine Protein 1+H, Urine Glucose (UA) NEGATIVE, Urine Ketones NEGATIVE, Urine Nitrite POSITIVEH, Urine Bilirubin NEGATIVE, Urine Urobilinogen NORMAL, Urine Leukocyte Esterase 3+H, Urine RBC (Auto) 1+H, Urine RBC 0-2, Urine WBC >100H, Urine Squamous Epithelial Cells 0-2, Urine Crystals NONE, Urine Bacteria LARGEH, Urine Casts PRESENT, Urine Hyaline Casts 0-2H, Urine Mucus NEGATIVE, Urine Culture Indicated YES, Urine Opiates Screen POSITIVEH, Urine Oxycodone Screen NEGATIVE, Urine Methadone Screen NEGATIVE, Urine Propoxyphene Screen NEGATIVE, Urine Barbiturates Screen NEGATIVE, Ur Tricyclic Antidepressants Screen POSITIVEH, Urine Phencyclidine Screen NEGATIVE, Urine Amphetamines Screen NEGATIVE, Urine Methamphetamines Screen NEGATIVE, Urine Benzodiazepines Screen NEGATIVE, Urine Cocaine Screen NEGATIVE, Urine Cannabinoids Screen NEGATIVE 10/01/17 20:25: Blood Gas Puncture Site LEFT RADIAL, Blood Gas Patient Temperature 95.6, Arterial Blood pH 7.43, Arterial Blood Partial Pressure CO2 45, Arterial Blood Partial Pressure O2 99H, Arterial Blood HCO3 30H, Arterial Blood Total CO2 31.5H , Arterial Blood Oxygen Saturation 98, Arterial Blood Base Excess 5.4H, Vitaly Test YES-POS, Blood Gas Ventilator Setting NO, Blood Gas Inspired Oxygen 6L 10/01/17 23:56: Glucometer 159H 10/02/17 03:55: White Blood Count 9.6, Red Blood Count 4.89, Hemoglobin 13.7, Hematocrit 43, Mean Corpuscular Volume 87, Mean Corpuscular Hemoglobin 28, Mean Corpuscular Hemoglobin Concent 32, Red Cell Distribution Width 16.1H, Platelet Count 187, Mean Platelet Volume 9.6, Neutrophils (%) (Auto) 82H, Lymphocytes (%) (Auto) 9L , Monocytes (%) (Auto) 7, Eosinophils (%) (Auto) 1, Basophils (%) (Auto) 0, Neutrophils # (Auto) 7.9H, Lymphocytes # (Auto) 0.9L, Monocytes # (Auto) 0.6, Eosinophils # (Auto) 0.1, Basophils # (Auto) 0.0, Sodium Level 141, Potassium Level 3.4L, Chloride Level 102, Carbon Dioxide Level 26, Anion Gap 13, Blood Urea Nitrogen 18, Creatinine 1.01, Estimat Glomerular Filtration Rate > 60, BUN/ Creatinine Ratio 18, Glucose Level 195H, Calcium Level 9.5, Total Bilirubin 1.2H , Aspartate Amino Transf (AST/SGOT) 24, Alanine Aminotransferase (ALT/SGPT) 20, Alkaline Phosphatase 79, Total Protein 6.8, Albumin 4.0 10/02/17 12:18: Glucometer 189H Microbiology 10/01/17 Urine Culture - Preliminary, Resulted Gram Negative Bacillus 1 Sent To [facility] Microbiology 10/01/17 Urine Culture - Preliminary, Resulted Gram Negative Bacillus 1 Sent To [facility] ALFONSO ESTRADA MD Oct 02, 2017 18:23
[2017-10-02] MEDS ORDERED: RT-ADVAIR HFA 115/21 MCG PER PUFF IH SCH (20:00)
[2017-10-02] MEDS: cefTRIAXone 1 GM/NS 50 ML IVPB IV SCH ×2 (20:26)
[2017-10-02] MEDS: meTOprolol TARTRATE 50 MG (LOPRESSOR) TAB PO SCH (20:26)
[2017-10-02] MEDS: AMITRIPTYLINE 50 MG (ELAVIL) TAB PO SCH (20:28)
[2017-10-02] MEDS: DOCUSATE SODIUM 100 MG (COLACE) CAP PO SCH (20:28)
[2017-10-02] MEDS: ATORVASTATIN 40 MG (LIPITOR) TABLET PO SCH (20:28)
[2017-10-02] MEDS: morphine ER 15 MG (MS CONTIN) TAB PO SCH (20:29)
[2017-10-02] MEDS: ENOXAPARIN 60 MG/0.6 ML (LOVENOX) SYR SC SCH (20:30)
[2017-10-03 03:45] VITALS: BP 115/85
[2017-10-03 04:01] LABS: BASOPHILS % (AUTO) 0 % (0-10); EOSINOPHILS # (AUTO) 0.3 10^3/uL (0.0-0.3); EOSINOPHILS % (AUTO) 4 % (0-10); HEMATOCRIT 40 % (40-54); HEMOGLOBIN 13.2 G/DL (13.3-17.7); LYMPHOCYTES # (AUTO) 1.8 X 10^3 (1.0-4.0); LYMPHOCYTES % (AUTO) 24 % (12-44); MEAN CORPUSCULAR HEMOGLOBIN 29 PG (25-34); MEAN CORPUSCULAR HGB CONC 33 G/DL (32-36); MEAN CORPUSCULAR VOLUME 88 FL (80-99); MEAN PLATELET VOLUME 10.3 FL (7.4-10.4); MONOCYTES # (AUTO) 0.6 X 10^3 (0.0-1.0); MONOCYTES % (AUTO) 8 % (0-12); NEUTROPHILS # (AUTO) 4.7 X 10^3 (1.8-7.8); NEUTROPHILS % (AUTO) 63 % (42-75); PLATELET COUNT 166 10^3/uL (130-400); RED BLOOD COUNT 4.55 10^6/uL (4.35-5.85); RED CELL DISTRIBUTION WIDTH 15.9 % (10.0-14.5); WHITE BLOOD COUNT 7.4 10^3/uL (4.3-11.0)
[2017-10-03 04:19] LABS: ALANINE AMINOTRANSFERASE 19 U/L (0-55); ALBUMIN 3.7 GM/DL (3.2-4.5); ALKALINE PHOSPHATASE 74 U/L (40-136); BILIRUBIN,TOTAL 1.2 MG/DL (0.1-1.0); BUN/CREATININE RATIO 12; CARBON DIOXIDE 21 MMOL/L (21-32); CHLORIDE 104 MMOL/L (98-107); CREATININE SERUM 0.92 MG/DL (0.60-1.30); GFR ESTIMATED > 60; GLUCOSE 176 MG/DL (70-105); MAGNESIUM 2.1 MG/DL (1.8-2.4); POTASSIUM 3.3 MMOL/L (3.6-5.0); SODIUM 139 MMOL/L (135-145); TOTAL PROTEIN 6.1 GM/DL (6.4-8.2)
[2017-10-03] MEDS: D5 1/2 NS W/KCL 20 MEQ/L 1,000 ML IV SCH ×2 (04:44→14:04)
[2017-10-03] MEDS: ENOXAPARIN 60 MG/0.6 ML (LOVENOX) SYR SC SCH ×2 (05:50→17:46)
[2017-10-03 09:17] VITALS: BP 125/77
[2017-10-03] MEDS: MUPIROCIN 2% OINT 22 GM (BACTROBAN) TUBE TOP SCH ×2 (09:19→21:18)
[2017-10-03] MEDS: DULoxetine 30 MG (CYMBALTA) CAP PO SCH ×3 (09:19→21:10)
[2017-10-03] MEDS: HYDROCHLOROTHIAZIDE 25 MG (HCTZ) TAB PO SCH (09:19)
[2017-10-03] MEDS: FUROSEMIDE 20 MG (LASIX) TAB PO SCH ×2 (09:19→17:46)
[2017-10-03] MEDS: meTOprolol TARTRATE 50 MG (LOPRESSOR) TAB PO SCH ×2 (09:19→21:10)
[2017-10-03] MEDS: PREGABALIN 100 MG (LYRICA) CAPSULE PO SCH ×3 (09:20→21:09)
[2017-10-03] MEDS: OMEGA 3 (FISH OIL) 1000 MG CAP PO SCH ×2 (09:20→21:09)
[2017-10-03] MEDS: LIDOCAINE (LIDODERM) 5% PATCH TOP SCH (09:20)
[2017-10-03] MEDS: DOCUSATE SODIUM 100 MG (COLACE) CAP PO SCH ×2 (09:20→21:10)
[2017-10-03] MEDS: morphine ER 15 MG (MS CONTIN) TAB PO SCH ×2 (09:35→21:10)
[2017-10-03] MEDS ORDERED: KCL 20 MEQ TAB (K-DUR) PO NR (09:40)
[2017-10-03] MEDS: glipiZIDE 5 MG (GLUCOTROL) TAB PO SCH ×2 (11:01→21:10)
--- NOTE | 2017-10-03 11:29 | Physical Therapy Daily Note ---
PT Daily Note-Current Subjective Pt in bed, c/o low back and (R) ankle pain but not rated. Agreeable to OOB. Mental Status Patient Orientation: Person, Place, Time, Situation Attachments: IV Transfers Functional [place] Measure 0=Not Assessed/NA 4=Minimal Assistance 1=Total Assistance 5=Supervision or Setup 2=Maximal Assistance 6=Modified [place] 3=Moderate Assistance 7=Complete IndependenceIRFPAI Quality Coding Scale 6 Independent with activity with or without an assistive device 5 Patient requires set up or clean up by helper. Patient completes activity by themselves 4 Supervision or touching assist (CGA). [place] provide cues , steadying assist 3 The helper provides less than half the effort to complete the activity 2 The helper provides more than half the effort to complete the activity 1 Dependent. The helper does all the effort to complete an activity 7 Patient refused to complete or attempt activity 9 The patient did not perform the activity before the current illness or injury 88 Not attempted due to Medical conditions or safety concerns Supine to/from Sit: 2 (Max A x 1 to scoot to EOB to establish sitting balance.) Sit to/from Stand: 4 Bed to/from Chair: 4 Weight Bearing Right Lower Extremity: Right Full Weight Bearing Left Lower Extremity: Left Full Weight Bearing Gait Training Gait (FIM): 1 Distance (FIM): 1=up to 49 ft Distance: 3' Gait Level of Assist: 4 Gait Persons Needed: 1 Gait Assistive Device: FWW Bed->chair with FWW, CGA-SBA for safety. Pt self-limits gait distance due to c/ o (R) LE pain. Treatments Bed->chair with FWW. Max A x 1 required for supine->sit to establish at EOB. Pt up in recliner, transferred to medical floor. All needs met. Assessment Current Status: Good Progress Pt tolerated well. Difficulty with supine->sit in part due to obesity and bed style. Pt self-limits functional mobility this date due to (R) LE pain. PT Short Term Goals Short Term Goals Time Frame: Oct 09, 2017 Transfers (B,C,W/C) (FIM): 5 Gait (FIM): 1 Gait Distance Comment: 20' Gait Level of Assist: 5 Gait Assistive Device: FWW PT Plan Problem List Problem List: Activity Tolerance, Functional Strength, Safety, Balance, Gait, Transfer, Bed Mobility Treatment/Plan Treatment Plan: Continue Plan of Care Treatment Plan: Bed Mobility, Education, Functional Activity Ghulam, Functional Strength, Gait, Safety, Therapeutic Exercise, Transfers Treatment Duration: Oct 09, 2017 Frequency: 6 times per week Estimated Hrs Per Day: .25 hour per day (15-30') Patient and/or Family Agrees t: Yes Discharge Recommendations Barriers to Progress pain Time/GCodes Time In: 1053 Time Out: 1116 Total Billed Treatment Time: 23 Total Billed Treatment 1, FA x 23' G Codes Necessary: No KEENA DODSON DPT Oct 03, 2017 11:29
[2017-10-03] MEDS: inSUlin ASPART (NovoLOG) 1 UNIT/0.01 ML (CHARGE PER UNIT) SC SCH ×2 (12:25→21:09)
[2017-10-03 12:30] VITALS: BP 127/78
--- NOTE | 2017-10-03 13:24 | Progress Note (SOAP) ---
Subjective Subjective/Events-last exam Pt reports some improvement, thought continues to be weak. Working with PT. Review of Systems Date Seen by Provider: Oct 03, 2017 Time Seen by Provider: 08:40 Objective Exam Last Set of Vital Signs Vital Signs Date Time Temp Pulse Resp B/P (MAP) Pulse Ox O2 Delivery O2 Flow Rate FiO2 10/03/17 09:17 92 20 125/77 (93) 94 Room Air 10/03/17 08:00 98.6 10/02/17 11:00 2.00 10/01/17 19:14 91 Capillary Refill : Less Than 3 Seconds I&O Intake and Output 10/03/17 00:00 Intake Total 2750 ml Output Total 1750 ml Balance 1000 ml Intake Oral 700 ml IV Total 2050 ml Output Urine Total 1750 ml General: Alert, Oriented X3, Cooperative Lungs: Clear to Auscultation Heart: Regular Rate Psych/Mental Status: Mental Status NL, Mood NL Results/Procedures Lab Laboratory Tests 10/03/17 03:34: White Blood Count 7.4, Red Blood Count 4.55, Hemoglobin 13.2L, Hematocrit 40, Mean Corpuscular Volume 88, Mean Corpuscular Hemoglobin 29, Mean Corpuscular Hemoglobin Concent 33, Red Cell Distribution Width 15.9H, Platelet Count 166, Mean Platelet Volume 10.3, Neutrophils (%) (Auto) 63, Lymphocytes (%) (Auto) 24 , Monocytes (%) (Auto) 8, Eosinophils (%) (Auto) 4, Basophils (%) (Auto) 0, Neutrophils # (Auto) 4.7, Lymphocytes # (Auto) 1.8, Monocytes # (Auto) 0.6, Eosinophils # (Auto) 0.3, Basophils # (Auto) 0.0, Sodium Level 139, Potassium Level 3.3L, Chloride Level 104, Carbon Dioxide Level 21, Anion Gap 14, Blood Urea Nitrogen 11, Creatinine 0.92, Estimat Glomerular Filtration Rate > 60, BUN/ Creatinine Ratio 12, Glucose Level 176H, Calcium Level 9.0, Magnesium Level 2.1 , Total Bilirubin 1.2H, Aspartate Amino Transf (AST/SGOT) 19, Alanine Aminotransferase (ALT/SGPT) 19, Alkaline Phosphatase 74, C-Reactive Protein High Sensitivity 4.38H, Total Protein 6.1L, Albumin 3.7 10/03/17 11:00: Glucometer 211H Microbiology 10/01/17 Urine Culture - Preliminary, Resulted Gram Negative Bacillus 1 Sent To [facility] Assessment/Plan Assessment/Plan Assessment & Plan 10/05/17 - transfer to 4th floor - St[employer] Player consult for SN 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 Rubin perviously, as well as Dr. Altaf Lassiter for renal 10/02 -rocephin day 2 -continue abx -culture pending 10/03/17 - urine culture growing GNR - continue rocephin pending sensitivities Qualifiers: Qualified Codes: N30.01 - Acute cystitis with hematuria (3) Weakness Status: Acute Assessment & Plan: 10/02 -multiple falls yesterday, unclear if he has had falls before this -pt currently lives at home with his father that he helps care for, but patient does not seem capable at this time of caring for himself due to his multiple medical conditions -suspect pt will need at least brief skilled stay after discharge, will have PT evaluate pt 10/03/17 - pt reports symptoms started Thursday, denies issues prior to that (4) Multiple falls Status: Acute Assessment & Plan: see above (5) Neuropathy Status: Chronic Assessment & Plan: 10/02 -severe polyneuropathy, likely a contributor to falls (6) Type II diabetes mellitus with complication Status: Chronic Assessment & Plan: 10/02 -A1C in AM 10/03/17 - restarted home medications - Bydureon weekly on Thursday; glipizide 20mg BID Qualifiers: Qualified Codes: E11.8 - Type 2 diabetes mellitus with unspecified complications (7) Obstructive sleep apnea Status: Chronic Assessment & Plan: 10/02 -pt to have family member bring in home CPAP (8) Fibromyalgia Status: Chronic Assessment & Plan: 10/02 -pt on multiple medications for this, including Morphine ER BID 10/03/17 - recommend tapering Morphine down and discontinuing as OP as opioids are not indicated for fibromyalgia and patient is on multiple potentially sedating medications. (9) Morbid obesity with BMI of 50.0-59.9, adult Status: Chronic (10) Elevated liver enzymes (11) Hypokalemia Status: Acute Assessment & Plan: 10/03/17 - replace; resume home KCL (12) Altered mental status Status: Resolved Assessment & Plan: 10/02 -pt making very little sense, answering questions inappropriately RESOLVED Qualifiers: Qualified Codes: R40.4 - Transient alteration of awareness (13) Polypharmacy Assessment & Plan: - Patient on amitriptyline, baclofen, duloxetine, Morphine ER, Lyrica - for chronic pain and fibromyalgia - recommend tapering off opioid and reducing other sedating medications as much as possible - recommend consult with Dr. Henry as OP for Pain Management eval. Clinical Quality Measures DVT/VTE Risk/Contraindication: Risk Factor Score Per Nursin RFS Level Per Nursing on Admit: 4+=Very High DAKOTA TEJADA DO Oct 03, 2017 13:24
[2017-10-03 16:00] VITALS: BP 138/86
[2017-10-03] MEDS: TAMSULOSIN 0.4 MG (FLOMAX) CAP PO SCH (17:46)
[2017-10-03 20:00] VITALS: BP 114/75
[2017-10-03] MEDS ORDERED: GLIPIZIDE 20 MG PO SCH (21:00)
[2017-10-03] MEDS: ATORVASTATIN 40 MG (LIPITOR) TABLET PO SCH (21:09)
[2017-10-03] MEDS: AMITRIPTYLINE 50 MG (ELAVIL) TAB PO SCH (21:10)
[2017-10-03] MEDS: cefTRIAXone 1 GM/NS 50 ML IVPB IV SCH ×2 (21:13)
[2017-10-04] VITALS (7 sets, daily range): BP systolic 118–139; BP diastolic 67–90
[2017-10-04] MEDS: D5 1/2 NS W/KCL 20 MEQ/L 1,000 ML IV SCH ×3 (00:05→20:41)
[2017-10-04] MEDS: ENOXAPARIN 60 MG/0.6 ML (LOVENOX) SYR SC SCH ×2 (05:25→17:20)
[2017-10-04] MEDS: inSUlin ASPART (NovoLOG) 1 UNIT/0.01 ML (CHARGE PER UNIT) SC SCH ×4 (05:25→20:48)
[2017-10-04 07:08] LABS: ALANINE AMINOTRANSFERASE 17 U/L (0-55); ALBUMIN 3.7 GM/DL (3.2-4.5); ALKALINE PHOSPHATASE 72 U/L (40-136); BILIRUBIN,TOTAL 1.2 MG/DL (0.1-1.0); BUN/CREATININE RATIO 12; CALCIUM 9.1 MG/DL (8.5-10.1); CARBON DIOXIDE 25 MMOL/L (21-32); CHLORIDE 101 MMOL/L (98-107); CREATININE SERUM 0.95 MG/DL (0.60-1.30); GFR ESTIMATED > 60; GLUCOSE 149 MG/DL (70-105); MAGNESIUM 1.8 MG/DL (1.8-2.4); POTASSIUM 3.1 MMOL/L (3.6-5.0); SODIUM 139 MMOL/L (135-145); TOTAL PROTEIN 6.3 GM/DL (6.4-8.2)
[2017-10-04] MEDS: KCL 20 MEQ TAB (K-DUR) PO SCH (08:47)
[2017-10-04] MEDS: PREGABALIN 100 MG (LYRICA) CAPSULE PO SCH ×3 (08:47→22:25)
[2017-10-04] MEDS: morphine ER 15 MG (MS CONTIN) TAB PO SCH ×2 (08:47→22:26)
[2017-10-04] MEDS: LIDOCAINE (LIDODERM) 5% PATCH TOP SCH (08:47)
[2017-10-04] MEDS: DULoxetine 30 MG (CYMBALTA) CAP PO SCH ×3 (08:47→22:40)
[2017-10-04] MEDS: glipiZIDE 5 MG (GLUCOTROL) TAB PO SCH ×2 (08:48→20:48)
[2017-10-04] MEDS: meTOprolol TARTRATE 50 MG (LOPRESSOR) TAB PO SCH ×2 (08:48→22:24)
[2017-10-04] MEDS: OMEGA 3 (FISH OIL) 1000 MG CAP PO SCH ×2 (08:48→22:23)
[2017-10-04] MEDS: FUROSEMIDE 20 MG (LASIX) TAB PO SCH ×2 (08:49→17:20)
[2017-10-04] MEDS: ASPIRIN E.C. 81 MG (ECOTRIN) TAB PO SCH (08:49)
[2017-10-04] MEDS: HYDROCHLOROTHIAZIDE 25 MG (HCTZ) TAB PO SCH (08:49)
[2017-10-04] MEDS: MUPIROCIN 2% OINT 22 GM (BACTROBAN) TUBE TOP SCH ×2 (08:50→22:27)
[2017-10-04] MEDS ORDERED: ASPIRIN E.C. 81 MG (ECOTRIN) TAB PO SCH (09:00)
[2017-10-04] MEDS ORDERED: ASPIRIN E.C. 325 MG (ECOTRIN) TABLET PO SCH (09:00)
[2017-10-04] MEDS ORDERED: NON-FORMULARY MEDICATION 1 EA EA (Exenatide Microspheres (Bydureon Pen) 2 MG) SC SCH (09:30)
[2017-10-04] MEDS: DOCUSATE SODIUM 100 MG (COLACE) CAP PO SCH ×2 (10:04→22:23)
--- NOTE | 2017-10-04 11:42 | Progress Note (SOAP) ---
Subjective Subjective/Events-last exam Pt sitting up in chair. Reports continued weakness but a little improvement with PT. Review of Systems Date Seen by Provider: Oct 04, 2017 Time Seen by Provider: 10:00 Objective Exam Last Set of Vital Signs Vital Signs Date Time Temp Pulse Resp B/P (MAP) Pulse Ox O2 Delivery O2 Flow Rate FiO2 10/04/17 08:30 97.5 89 20 119/75 (90) 94 Room Air 10/02/17 11:00 2.00 10/01/17 19:14 91 Capillary Refill : Less Than 3 Seconds I&O Intake and Output 10/03/17 23:59 Intake Total 4110 ml Output Total 2350 ml Balance 1760 ml Intake Oral 2060 ml IV Total 2050 ml Output Urine Total 2050 ml Post Void Residual 300 ml # Voids 1 General: Alert, Oriented X3, Cooperative Psych/Mental Status: Mood NL Results/Procedures Lab Laboratory Tests 10/03/17 14:53: Glucometer 220H 10/03/17 19:39: Glucometer 206H 10/04/17 05:16: Glucometer 136H 10/04/17 06:05: Sodium Level 139, Potassium Level 3.1L, Chloride Level 101, Carbon Dioxide Level 25, Anion Gap 13, Blood Urea Nitrogen 11, Creatinine 0.95, Estimat Glomerular Filtration Rate > 60, BUN/Creatinine Ratio 12, Glucose Level 149H, Calcium Level 9.1, Magnesium Level 1.8, Total Bilirubin 1.2H, Aspartate Amino Transf (AST/SGOT) 19, Alanine Aminotransferase (ALT/SGPT) 17, Alkaline Phosphatase 72, Total Protein 6.3L, Albumin 3.7 10/04/17 10:21: Glucometer 237H Microbiology 10/01/17 Urine Culture - Final, Complete Escherichia coli Escherichia coli#2 See Comments Assessment/Plan Assessment/Plan Assessment & Plan 10/05/17 - transfer to 4th floor - 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 Rubin perviously, as well as Dr. Altaf Lassiter for renal 10/02 -rocephin day 2 -continue abx -culture pending 10/03/17 - urine culture growing GNR - continue rocephin pending sensitivities 10/04/17 - urine culture - E. coli sensitive to Rocephin Qualifiers: Qualified Codes: N30.01 - Acute cystitis with hematuria (3) Weakness Status: Acute Assessment & Plan: 10/02 -multiple falls yesterday, unclear if he has had falls before this -pt currently lives at home with his father that he helps care for, but patient does not seem capable at this time of caring for himself due to his multiple medical conditions -suspect pt will need at least brief skilled stay after discharge, will have PT evaluate pt 10/03/17 - pt reports symptoms started Thursday, denies issues prior to that (4) Multiple falls Status: Acute Assessment & Plan: see above (5) Neuropathy Status: Chronic Assessment & Plan: 10/02 -severe polyneuropathy, likely a contributor to falls (6) Type II diabetes mellitus with complication Status: Chronic Assessment & Plan: 10/02 -A1C in AM 10/03/17 - restarted home medications - Bydureon weekly on Thursday; glipizide 20mg BID; SSI Novolog Qualifiers: Qualified Codes: E11.8 - Type 2 diabetes mellitus with unspecified complications (7) Obstructive sleep apnea Status: Chronic Assessment & Plan: 10/02 -pt to have family member bring in home CPAP (8) Fibromyalgia Status: Chronic Assessment & Plan: 10/02 -pt on multiple medications for this, including Morphine ER BID 10/03/17 - recommend tapering Morphine down and discontinuing as OP as opioids are not indicated for fibromyalgia and patient is on multiple potentially sedating medications. (9) Morbid obesity with BMI of 50.0-59.9, adult Status: Chronic (10) Elevated liver enzymes (11) Hypokalemia Status: Acute Assessment & Plan: 10/03/17 - replace; resume home KCL (12) Polypharmacy Assessment & Plan: - Patient on amitriptyline, baclofen, duloxetine, Morphine ER, Lyrica - for chronic pain and fibromyalgia - recommend tapering off opioid and reducing other sedating medications as much as possible - recommend consult with Dr. Henry as OP for Pain Management eval. (13) Altered mental status Status: Resolved Assessment & Plan: 10/02 -pt making very little sense, answering questions inappropriately RESOLVED Qualifiers: Qualified Codes: R40.4 - Transient alteration of awareness Clinical Quality Measures DVT/VTE Risk/Contraindication: Risk Factor Score Per Nursin RFS Level Per Nursing on Admit: 4+=Very High DAKOTA TEJADA DO Oct 04, 2017 11:42
[2017-10-04] MEDS ORDERED: PATIENT MAY USE OWN MED,SINGLE MED PO SCH (17:00)
[2017-10-04] MEDS ORDERED: Exenatide Microspheres (Bydureon Pen) 2 MG SC SCH (17:15)
[2017-10-04] MEDS: TAMSULOSIN 0.4 MG (FLOMAX) CAP PO SCH ×2 (17:19→19:42)
[2017-10-04] MEDS: cefTRIAXone 1 GM/NS 50 ML IVPB IV SCH ×2 (20:41)
[2017-10-04] MEDS: AMITRIPTYLINE 50 MG (ELAVIL) TAB PO SCH (22:25)
[2017-10-04] MEDS: ATORVASTATIN 40 MG (LIPITOR) TABLET PO SCH (22:40)
[2017-10-05 00:34] VITALS: BP 125/65
[2017-10-05 04:33] VITALS: BP 120/69
[2017-10-05] MEDS: ENOXAPARIN 60 MG/0.6 ML (LOVENOX) SYR SC SCH (06:02)
[2017-10-05] MEDS: inSUlin ASPART (NovoLOG) 1 UNIT/0.01 ML (CHARGE PER UNIT) SC SCH ×3 (06:02→15:47)
[2017-10-05 06:52] LABS: ALANINE AMINOTRANSFERASE 22 U/L (0-55); ALBUMIN 3.8 GM/DL (3.2-4.5); ALKALINE PHOSPHATASE 75 U/L (40-136); BILIRUBIN,TOTAL 1.1 MG/DL (0.1-1.0); BUN/CREATININE RATIO 12; CALCIUM 9.3 MG/DL (8.5-10.1); CARBON DIOXIDE 21 MMOL/L (21-32); CHLORIDE 101 MMOL/L (98-107); GFR ESTIMATED > 60; GLUCOSE 173 MG/DL (70-105); POTASSIUM 3.6 MMOL/L (3.6-5.0); SODIUM 138 MMOL/L (135-145); TOTAL PROTEIN 6.8 GM/DL (6.4-8.2)
[2017-10-05] MEDS: D5 1/2 NS W/KCL 20 MEQ/L 1,000 ML IV SCH (07:30)
[2017-10-05 08:24] VITALS: BP 132/82
[2017-10-05] MEDS: morphine ER 15 MG (MS CONTIN) TAB PO SCH (08:43)
[2017-10-05] MEDS: KCL 20 MEQ TAB (K-DUR) PO SCH (08:43)
[2017-10-05] MEDS: DULoxetine 30 MG (CYMBALTA) CAP PO SCH ×2 (08:43)
[2017-10-05] MEDS: DOCUSATE SODIUM 100 MG (COLACE) CAP PO SCH (08:43)
[2017-10-05] MEDS: PREGABALIN 100 MG (LYRICA) CAPSULE PO SCH ×2 (08:44→13:06)
[2017-10-05] MEDS: ASPIRIN E.C. 81 MG (ECOTRIN) TAB PO SCH (08:44)
[2017-10-05] MEDS: meTOprolol TARTRATE 50 MG (LOPRESSOR) TAB PO SCH (08:44)
[2017-10-05] MEDS: glipiZIDE 5 MG (GLUCOTROL) TAB PO SCH (08:44)
[2017-10-05] MEDS: OMEGA 3 (FISH OIL) 1000 MG CAP PO SCH (08:44)
[2017-10-05] MEDS: FUROSEMIDE 20 MG (LASIX) TAB PO SCH (08:44)
[2017-10-05] MEDS: HYDROCHLOROTHIAZIDE 25 MG (HCTZ) TAB PO SCH (08:44)
[2017-10-05] MEDS: LIDOCAINE (LIDODERM) 5% PATCH TOP SCH (08:45)
[2017-10-05] MEDS: MUPIROCIN 2% OINT 22 GM (BACTROBAN) TUBE TOP SCH (08:45)
[2017-10-05] MEDS ORDERED: POLYETHYLENE GLYCOL 17 GM (MIRALAX) PACK PO SCH (09:00)
--- NOTE | 2017-10-05 11:26 | Physical Therapy Daily Note ---
PT Daily Note-Current Subjective Patient agrees to PT. No c/o. Pain Numeric Pain Scale: 5-Moderate Pain Location: Right Location Body Site: Ankle Pain Description: Acute Mental Status Patient Orientation: Normal For Age Attachments: IV Transfers Functional [place] Measure 0=Not Assessed/NA 4=Minimal Assistance 1=Total Assistance 5=Supervision or Setup 2=Maximal Assistance 6=Modified [place] 3=Moderate Assistance 7=Complete IndependenceIRFPAI Quality Coding Scale 6 Independent with activity with or without an assistive device 5 Patient requires set up or clean up by helper. Patient completes activity by themselves 4 Supervision or touching assist (CGA). [place] provide cues , steadying assist 3 The helper provides less than half the effort to complete the activity 2 The helper provides more than half the effort to complete the activity 1 Dependent. The helper does all the effort to complete an activity 7 Patient refused to complete or attempt activity 9 The patient did not perform the activity before the current illness or injury 88 Not attempted due to Medical conditions or safety concerns Transfers (B, C, W/C) (FIM): 6 Scootin Sit to/from Stand: 6 Weight Bearing Right Lower Extremity: Right Full Weight Bearing Left Lower Extremity: Left Full Weight Bearing Gait Training Gait (FIM): 6 Distance (FIM): 3=150 ft Distance: 375' Gait Level of Assist: 6 Gait Assistive Device: FWW steady, functional gait sequence Assessment Patient tolerated treatment well and is currently at [facility] with all gross motor skills. PT Short Term Goals Short Term Goals Time Frame: Oct 09, 2017 Transfers (B,C,W/C) (FIM): 5 Gait (FIM): 1 Gait Distance Comment: 20' Gait Level of Assist: 5 Gait Assistive Device: FWW PT Plan Treatment/Plan Treatment Plan: Continue Plan of Care Treatment Plan: Bed Mobility, Education, Functional Activity Ghulam, Functional Strength, Gait, Safety, Therapeutic Exercise, Transfers Treatment Duration: Oct 09, 2017 Frequency: 6 times per week Estimated Hrs Per Day: .25 hour per day (15-30') Patient and/or Family Agrees t: Yes Discharge Recommendations Therapy D/C Recommendations: Home w/ Family Support, Physical Therapy Home Care Time/GCodes Time In: 1030 Time Out: 1044 Total Billed Treatment Time: 14 Total Billed Treatment 1 visit FA 14 min SAI ZHANG PT Oct 05, 2017 11:26
[2017-10-05 12:00] VITALS: BP 124/79
[2017-10-05] MEDS ORDERED: POLY17PO23 PO (14:26)
[2017-10-05] MEDS ORDERED: MUPI22OI2 TOP (14:26)
[2017-10-05] MEDS ORDERED: NITR-65 PO (14:26)
--- NOTE | 2017-10-05 14:29 | D/C HH Face to Face Order ---
D/C Face to Face Orders Instructions for Patient Patient Instructions/FollowUp: Follow up with Feliz Lowe APRN at [facility] on 10/08 at 11:40 am. Physician to follow Patient: Feliz Lowe APRN Discharge Diet for Home: ADA Diet Goals for Patient: Minimize sedating/fall risk medications. Decrease frequency of urinary tract infections. Improve mobility. Decrease fall risk. Patient Data-Allergies,Ht & Wt Patient Allergies: Coded Allergies: Sulfa (Sulfonamide Antibiotics) (Unverified Allergy, Unknown, 03/21/14) latex (Unverified Allergy, Unknown, 03/21/14) raspberry (Unverified Allergy, Unknown, 03/21/14) zinc oxide (Unverified Allergy, Unknown, 03/21/14) Uncoded Allergies: ARTIFICIAL SWEETNERS (Allergy, Unknown, 03/21/14) Height (Feet): 5 Height (Inches): 10.00 Weight (Pounds): 369 Weight (Ounces): 1.0 Home Health Need/Face to Face Date of Face to Face: Oct 05, 2017 Clinical Findings: Generalized weakness and fatigue, Muscle weakness, Pain with ambulation I have seen Pt [id number]: Yes Discharged To: Home Diagnosis/Conditions: Urinary tract infection Fall Debility Chronic pain Patient is Homebound due to: Miguel fall risk due to instabilty Homebound Status Due to the above stated illness, injury or surgical procedure (medical condition or diagnosis) and associated clinical findings, the patient is homebound because of his/her inability to leave home except with aid of a supportive device and/or person AND leaving the home requires a considerable and taxing effort or is medically contraindicated. Pt req the following assistanc: [facility] Nursing Orders Home Health Services Order: Physical Therapy-Evaluate & Treat Therapy Orders Therapy Orders: Physical Therapy Therapy Specific Orders: Gait training, Increase strength/endurance Certify Stmt I certify that this patient is under my care and that I, a nurse practitioner or a physician; a financial services assistant working with me, had a face to face encounter that - meets the physician face to face encounter requirements with this patient as dated. JOHN BUCIO MD Oct 05, 2017 2:29 pm
--- NOTE | 2017-10-05 14:40 | Discharge Summary ---
Diagnosis/Chief Complaint Date of Admission Oct 01, 2017 at 7:20 pm Date of Discharge October 05, 2017 Admission Diagnosis Admission Diagnosis Sepsis UTI Weakness Falls Type II Diabetes Severe Polyneuropathy Fibromyalgia Chronic Opiate Use Discharge Diagnosis (2) UTI (urinary tract infection) Status: Acute Assessment & Plan: - pt reports a history of chronic UTI; has seen Dr. Rubin perviously, as well as Dr. Altaf Lassiter for renal 10/02 -rocephin day 2 10/04/17 - urine culture - E. coli sensitive to Rocephin (3) Weakness Status: Acute Assessment & Plan: 10/02 -multiple falls yesterday, unclear if he has had falls before this -pt currently lives at home with his father that he helps care for, but patient does not seem capable at this time of caring for himself due to his multiple medical conditions -suspect pt will need at least brief skilled stay after discharge, will have PT evaluate pt 10/05- patient evaluated by PT and felt safe for d/c to home with home PT and front-wheeled walker (4) Multiple falls Status: Acute Assessment & Plan: see above (5) Neuropathy Status: Chronic Assessment & Plan: 10/02 -severe polyneuropathy, likely a contributor to falls (6) Type II diabetes mellitus with complication Status: Chronic Assessment & Plan: 10/0210/03/17 - restarted home medications - Bydureon weekly on Thursday; glipizide 20mg BID; SSI Novolog Qualifiers: Qualified Codes: E11.8 - Type 2 diabetes mellitus with unspecified complications (7) Obstructive sleep apnea Status: Chronic Assessment & Plan: 10/02 -pt to have family member bring in home CPAP (8) Fibromyalgia Status: Chronic Assessment & Plan: 10/02 -pt on multiple medications for this, including Morphine ER BID 10/03/17 - recommend tapering Morphine down and discontinuing as OP as opioids are not indicated for fibromyalgia and patient is on multiple potentially sedating medications. (9) Morbid obesity with BMI of 50.0-59.9, adult Status: Chronic (10) Elevated liver enzymes Needs repeat labs outpatient (11) Hypokalemia Status: Acute Assessment & Plan: 10/03/17 - replace; resume home KCL (12) Polypharmacy Assessment & Plan: - Patient on amitriptyline, baclofen, duloxetine, Morphine ER, Lyrica - for chronic pain and fibromyalgia - recommend tapering off opioid and reducing other sedating medications as much as possible - recommend consult with Dr. Henry as OP for Pain Management eval. Held amitriptyline on d/c, continue to minimize taper meds outpatient (13) Altered mental status Status: Resolved Assessment & Plan: 10/02 -pt making very little sense, answering questions inappropriately RESOLVED- thought to be secondary to infection and sedating medications Chief Complaint/HPI Chief Complaint/HPI Arrived to ED via EMS with frequent falls, inability to void, lack of feeling in feet and legs (which is an ongoing problem). Family arrives later and reports that pt is not very communicative and they are not sure who called EMS or what the exact details of the day had been. Majority of history obtained from records. Pt received ativan for sedation for imaging in ED and remained quite somnolent after that, requiring supplemental O2 - but would arouse to painful stimuli. Admit for treatment of UTI and safety evaluation for independent living. Discharge Summary-Simple/Stand Consultations Discharge Physical Examination Allergies: Coded Allergies: Sulfa (Sulfonamide Antibiotics) (Unverified Allergy, Unknown, 03/21/14) latex (Unverified Allergy, Unknown, 03/21/14) raspberry (Unverified Allergy, Unknown, 03/21/14) zinc oxide (Unverified Allergy, Unknown, 03/21/14) Uncoded Allergies: ARTIFICIAL SWEETNERS (Allergy, Unknown, 03/21/14) Vitals & I&Os Vital Sign - Last 12Hours Date Time Temp Pulse Resp B/P (MAP) Pulse Ox O2 Delivery O2 Flow Rate FiO2 10/05/17 12:00 97.5 85 20 124/79 (94) 94 Room Air 10/02/17 11:00 2.00 10/01/17 19:14 91 Intake and Output 10/05/17 00:00 Intake Total 1084 ml Output Total 1825 ml Balance -741 ml General Appearance: Alert, Oriented X3, No Acute Distress Respiratory: Clear to Auscultation, Normal Air Movement Cardiovascular: Regular Rate, No Murmurs Neuro: Normal Speech Psych/Mental Status: Mental Status NL Hospital Course See final discharge diagnosis. Labs Laboratory Tests Test 10/05/17 05:19 10/05/17 05:53 6/18/18 10:20 10/05/17 15:22 Range/Units Glucometer 183 H 224 H 190 H 70-110 MG/DL Sodium Level 138 135-145 MMOL/L Potassium Level 3.6 3.6-5.0 MMOL/L Chloride Level 101 98-107 MMOL/L Carbon Dioxide Level 21 21-32 MMOL/L Anion Gap 16 H 5-14 MMOL/L Blood Urea Nitrogen 13 7-18 MG/DL Creatinine 1.10 0.60-1.30 MG/DL Estimat Glomerular Filtration Rate > 60 BUN/Creatinine Ratio 12 Glucose Level 173 H 70-105 MG/DL Calcium Level 9.3 8.5-10.1 MG/DL Total Bilirubin 1.1 H 0.1-1.0 MG/DL Aspartate Amino Transf (AST/SGOT) 22 5-34 U/L Alanine Aminotransferase (ALT/SGPT) 22 0-55 U/L Alkaline Phosphatase 75 40-136 U/L Total Protein 6.8 6.4-8.2 GM/DL Albumin 3.8 3.2-4.5 GM/DL Discharge Instructions to patient/family Please see electronic discharge instructions given to patient. Discharge Medications Reviewed and agree with Discharge Medication list on patient's Discharge Instruction sheet Clinical Quality Measures DVT/VTE Risk/Contraindication: Risk Factor Score Per Nursin RFS Level Per Nursing on Admit: 4+=Very High Copy Copies To 1: TAMERA Roblero BETHANY N MD Oct 05, 2017 14:40
== END 2017-10-05 15:58 | disposition home health service (06) | DRG 872 ==
LOC: EDUNIT# 15:59 → ER 16:00 → ICU 19:20 → 4TH 10-03 11:10
PROVIDERS: ADMIT Family Medicine; ATTEND Family Medicine
DX: A41.9 Sepsis, unspecified organism (principal); N30.01 Acute cystitis with hematuria; Z68.43 Body mass index [BMI] 50.0-59.9, adult; R09.02 Hypoxemia; E11.42 Type 2 diabetes mellitus with diabetic polyneuropathy; I10 Essential (primary) hypertension; G47.33 Obstructive sleep apnea (adult) (pediatric); E66.01 Morbid (severe) obesity due to excess calories; N40.1 Benign prostatic hyperplasia with lower urinary tract symptoms; R33.9 Retention of urine, unspecified; E11.65 Type 2 diabetes mellitus with 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; E87.6 Hypokalemia; M79.7 Fibromyalgia; M19.91 Primary osteoarthritis, unspecified site; I87.2 Venous insufficiency (chronic) (peripheral); J44.9 Chronic obstructive pulmonary disease, unspecified; E78.00 Pure hypercholesterolemia, unspecified; S00.31XA Abrasion of nose, initial encounter; S50.311A Abrasion of right elbow, initial encounter; W19.XXXA Unspecified fall, initial encounter; Z87.891 Personal history of nicotine dependence; Z23 Encounter for immunization
CPT/HCPCS: 36415; 36600; 70450; 70486; 71045; 72125; 72192; 73080; 73090; 73130; 80053; 80306; 80320; 81000; 82550; 82553; 82805; 82962; 83735; 83880; 84443; 84484; 85025; 85610; 85730; 86141; 87077; 87088; 87186; 90471; 90715; 93005; 93041; 94640; 96361; 96365; 96375

== ENCOUNTER → 2018-02-22 | Outpatient (CLI) | payer MEDICAID ==
[~2018-02-22] MED LIST changes: +ACET-168 PO; +AMIT100T2 PO; +ASPI325T32 PO; +ATOR40TA70 PO; +BACL20TA PO; +BUDE10.2 INH; +DOCU-143 PO; +DULO30CA48 PO; +DULO60CA58 PO; +EXEN2PEN SC; +FURO20TA4 PO; +GLIP10TA13 PO; +HYDR25TA4 PO; +LIDO700A45 TOP; +METO100T12 PO; +MORP-33 PO; +MUPI22OI2 TOP; +NITR-65 PO; +OMEG-82 PO; +POLY17PO31 PO; +POTA20TA15 PO; +PREG200C PO; +SILV50CR28 TOP; +TAMS0.4C2 PO
== END ==
LOC: WOUNDCARE 12:32
PROVIDERS: ATTEND Surgery
DX: E11.621 Type 2 diabetes mellitus with foot ulcer (principal); I87.323 Chronic venous hypertension (idiopathic) with inflammation of bilateral lower extremity; L97.512 Non-pressure chronic ulcer of other part of right foot with fat layer exposed; E11.42 Type 2 diabetes mellitus with diabetic polyneuropathy; E66.01 Morbid (severe) obesity due to excess calories; Z68.43 Body mass index [BMI] 50.0-59.9, adult
CPT/HCPCS: 11042; 87070; 87075; 87077; 87186; 87205

== ENCOUNTER → 2018-02-22 | Outpatient (CLI) | payer MEDICAID ==
--- NOTE | 2018-02-22 20:49 | Diagnostic Imaging Report ---
INDICATION: Chronic ulcer of the foot. TECHNIQUE: 3 views of the right foot CORRELATION STUDY: None FINDINGS: Soft tissue swelling and vascular calcification is present. More focal swelling about the region of the great toe. Osseous structures demonstrate slight loss of normal mid arch. No maya deformity. No acute bony abnormality or bony destructive or erosive type change. Toes are held in partial flexure limiting their assessment. IMPRESSION: 1. Negative for acute bony abnormality about the right foot. Soft tissue swelling particularly in the region of the great toe. No maya bony destruction. If further assessment is desired, MRI would be recommended, preferably with contrast. Dictated by: Dictated on workstation # [id number]
== END ==
LOC: RAD 14:31
PROVIDERS: ATTEND Surgery
DX: L97.512 Non-pressure chronic ulcer of other part of right foot with fat layer exposed (principal)
CPT/HCPCS: 73630

== ENCOUNTER → 2018-03-04 | Outpatient (CLI) | payer MEDICAID | LOC: WOUNDCARE 14:57 | PROVIDERS: ATTEND Orthopaedic Surgery Hand Surgery | DX: E11.621 Type 2 diabetes mellitus with foot ulcer (principal); E11.42 Type 2 diabetes mellitus with diabetic polyneuropathy; L97.512 Non-pressure chronic ulcer of other part of right foot with fat layer exposed; I87.323 Chronic venous hypertension (idiopathic) with inflammation of bilateral lower extremity; E66.01 Morbid (severe) obesity due to excess calories | CPT/HCPCS: 11042; 11045 ==

== ENCOUNTER → 2018-03-18 | Outpatient (CLI) | payer MEDICAID | LOC: WOUNDCARE 14:48 | PROVIDERS: ATTEND Orthopaedic Surgery Hand Surgery | DX: E11.621 Type 2 diabetes mellitus with foot ulcer (principal); E11.42 Type 2 diabetes mellitus with diabetic polyneuropathy; L97.512 Non-pressure chronic ulcer of other part of right foot with fat layer exposed; I87.323 Chronic venous hypertension (idiopathic) with inflammation of bilateral lower extremity; E66.01 Morbid (severe) obesity due to excess calories | CPT/HCPCS: 11042 ==

== ENCOUNTER → 2018-03-25 | Outpatient (CLI) | payer MEDICAID | LOC: WOUNDCARE 14:59 | PROVIDERS: ATTEND Orthopaedic Surgery Hand Surgery | DX: E11.621 Type 2 diabetes mellitus with foot ulcer (principal); E11.42 Type 2 diabetes mellitus with diabetic polyneuropathy; L97.512 Non-pressure chronic ulcer of other part of right foot with fat layer exposed; I87.323 Chronic venous hypertension (idiopathic) with inflammation of bilateral lower extremity; E66.01 Morbid (severe) obesity due to excess calories | CPT/HCPCS: 11042 ==

== ENCOUNTER → 2018-04-01 | Outpatient (CLI) | payer MEDICAID | LOC: WOUNDCARE 14:43 | PROVIDERS: ATTEND Orthopaedic Surgery Hand Surgery | DX: E11.621 Type 2 diabetes mellitus with foot ulcer (principal); E11.42 Type 2 diabetes mellitus with diabetic polyneuropathy; L97.512 Non-pressure chronic ulcer of other part of right foot with fat layer exposed; I87.323 Chronic venous hypertension (idiopathic) with inflammation of bilateral lower extremity; E66.01 Morbid (severe) obesity due to excess calories | CPT/HCPCS: 11042 ==

== ENCOUNTER → 2018-04-08 | Outpatient (CLI) | payer MEDICAID | LOC: WOUNDCARE 14:19 | PROVIDERS: ATTEND Orthopaedic Surgery Hand Surgery | DX: E11.621 Type 2 diabetes mellitus with foot ulcer (principal); E11.42 Type 2 diabetes mellitus with diabetic polyneuropathy; L97.512 Non-pressure chronic ulcer of other part of right foot with fat layer exposed; I87.323 Chronic venous hypertension (idiopathic) with inflammation of bilateral lower extremity; E66.01 Morbid (severe) obesity due to excess calories | CPT/HCPCS: 11042 ==

== ENCOUNTER → 2018-04-23 | Outpatient (CLI) | payer MEDICAID | LOC: WOUNDCARE 13:43 | PROVIDERS: ATTEND Surgery | DX: E11.621 Type 2 diabetes mellitus with foot ulcer (principal); E11.42 Type 2 diabetes mellitus with diabetic polyneuropathy; L97.512 Non-pressure chronic ulcer of other part of right foot with fat layer exposed; I87.323 Chronic venous hypertension (idiopathic) with inflammation of bilateral lower extremity; E66.01 Morbid (severe) obesity due to excess calories | CPT/HCPCS: 11042; 87070; 87075; 87077; 87205 ==

== ENCOUNTER → 2018-04-28 | Outpatient (CLI) | payer MEDICAID | LOC: WOUNDCARE 13:47 | PROVIDERS: ATTEND Surgery | DX: E11.621 Type 2 diabetes mellitus with foot ulcer (principal); L97.512 Non-pressure chronic ulcer of other part of right foot with fat layer exposed; I87.323 Chronic venous hypertension (idiopathic) with inflammation of bilateral lower extremity; E11.65 Type 2 diabetes mellitus with 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; E11.42 Type 2 diabetes mellitus with diabetic polyneuropathy; E66.01 Morbid (severe) obesity due to excess calories; Z68.43 Body mass index [BMI] 50.0-59.9, adult | CPT/HCPCS: 11042 ==

== ENCOUNTER → 2018-05-05 | Outpatient (CLI) | payer MEDICAID | LOC: WOUNDCARE 13:44 | PROVIDERS: ATTEND Surgery | DX: E11.621 Type 2 diabetes mellitus with foot ulcer (principal); L97.512 Non-pressure chronic ulcer of other part of right foot with fat layer exposed; E11.65 Type 2 diabetes mellitus with 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; E11.42 Type 2 diabetes mellitus with diabetic polyneuropathy; I87.323 Chronic venous hypertension (idiopathic) with inflammation of bilateral lower extremity; E66.01 Morbid (severe) obesity due to excess calories; Z68.43 Body mass index [BMI] 50.0-59.9, adult | CPT/HCPCS: 11042 ==

== ENCOUNTER → 2018-05-12 | Outpatient (CLI) | payer MEDICAID | LOC: WOUNDCARE 13:38 | PROVIDERS: ATTEND Surgery | DX: E11.621 Type 2 diabetes mellitus with foot ulcer (principal); I87.323 Chronic venous hypertension (idiopathic) with inflammation of bilateral lower extremity; L97.512 Non-pressure chronic ulcer of other part of right foot with fat layer exposed; L97.221 Non-pressure chronic ulcer of left calf limited to breakdown of skin; E11.42 Type 2 diabetes mellitus with diabetic polyneuropathy; I89.0 Lymphedema, not elsewhere classified; E66.01 Morbid (severe) obesity due to excess calories; Z68.43 Body mass index [BMI] 50.0-59.9, adult | CPT/HCPCS: 11042 ==

== ENCOUNTER → 2018-05-17 | Outpatient (CLI) | payer MEDICAID | LOC: WOUNDCARE 14:41 | PROVIDERS: ATTEND Surgery | DX: E11.621 Type 2 diabetes mellitus with foot ulcer (principal); L97.512 Non-pressure chronic ulcer of other part of right foot with fat layer exposed; I87.323 Chronic venous hypertension (idiopathic) with inflammation of bilateral lower extremity; L97.221 Non-pressure chronic ulcer of left calf limited to breakdown of skin; E11.42 Type 2 diabetes mellitus with diabetic polyneuropathy; I89.0 Lymphedema, not elsewhere classified; E66.01 Morbid (severe) obesity due to excess calories; Z68.43 Body mass index [BMI] 50.0-59.9, adult | CPT/HCPCS: 11042; 87070; 87075; 87205 ==

== ENCOUNTER → 2018-05-24 | Outpatient (CLI) | payer MEDICAID ==
--- NOTE | 2018-05-24 14:45 | Diagnostic Imaging Report ---
PROCEDURE: US left lower extremity venous. TECHNIQUE: Multiple real-time grayscale images were obtained over the left lower extremity in various projections. Additional duplex Doppler and color Doppler images were also obtained. INDICATION: Left leg swelling. There is no evidence of left lower extremity DVT. Left lower extremity deep venous system shows normal compressibility with normal response to augmentation and Valsalva. No fluid collection or mass is seen. IMPRESSION: No evidence of left lower extremity DVT. Dictated by: Dictated on workstation # [id number]
== END ==
LOC: RAD 12:58
PROVIDERS: ATTEND Surgery
DX: E11.621 Type 2 diabetes mellitus with foot ulcer (principal); E11.42 Type 2 diabetes mellitus with diabetic polyneuropathy; L97.512 Non-pressure chronic ulcer of other part of right foot with fat layer exposed; I87.323 Chronic venous hypertension (idiopathic) with inflammation of bilateral lower extremity; E66.01 Morbid (severe) obesity due to excess calories; L97.221 Non-pressure chronic ulcer of left calf limited to breakdown of skin; I89.0 Lymphedema, not elsewhere classified; I82.492 Acute embolism and thrombosis of other specified deep vein of left lower extremity

== ENCOUNTER → 2018-05-26 | Outpatient (CLI) | payer MEDICAID | LOC: WOUNDCARE 13:54 | PROVIDERS: ATTEND Surgery | DX: E11.621 Type 2 diabetes mellitus with foot ulcer (principal); L97.512 Non-pressure chronic ulcer of other part of right foot with fat layer exposed; I87.323 Chronic venous hypertension (idiopathic) with inflammation of bilateral lower extremity; L97.221 Non-pressure chronic ulcer of left calf limited to breakdown of skin; E11.42 Type 2 diabetes mellitus with diabetic polyneuropathy; I89.0 Lymphedema, not elsewhere classified; E66.01 Morbid (severe) obesity due to excess calories; Z68.43 Body mass index [BMI] 50.0-59.9, adult | CPT/HCPCS: 11042 ==

== ENCOUNTER → 2018-06-02 | Outpatient (CLI) | payer MEDICAID | LOC: WOUNDCARE 13:51 | PROVIDERS: ATTEND Surgery | DX: E11.621 Type 2 diabetes mellitus with foot ulcer (principal); L97.512 Non-pressure chronic ulcer of other part of right foot with fat layer exposed; I87.323 Chronic venous hypertension (idiopathic) with inflammation of bilateral lower extremity; L97.221 Non-pressure chronic ulcer of left calf limited to breakdown of skin; E11.42 Type 2 diabetes mellitus with diabetic polyneuropathy; I89.0 Lymphedema, not elsewhere classified; E66.01 Morbid (severe) obesity due to excess calories; Z68.43 Body mass index [BMI] 50.0-59.9, adult | CPT/HCPCS: 11042; 87070; 87205 ==

== ENCOUNTER → 2018-06-08 | Outpatient (CLI) | payer MEDICAID ==
[2018-06-08 12:28] LABS: BUN/CREATININE RATIO 19; CREATININE SERUM 1.17 MG/DL (0.60-1.30); GFR ESTIMATED > 60
== END ==
LOC: LAB 11:55
PROVIDERS: ATTEND Nurse Practitioner Family
DX: J98.4 Other disorders of lung (principal); G47.30 Sleep apnea, unspecified; R06.89 Other abnormalities of breathing; R06.09 Other forms of dyspnea; Z78.9 Other specified health status
CPT/HCPCS: 36415; 82565; 84520

== ENCOUNTER → 2018-06-09 | Outpatient (CLI) | payer MEDICAID, OTHER | LOC: WOUNDCARE 13:38 | PROVIDERS: ATTEND Surgery | DX: E11.621 Type 2 diabetes mellitus with foot ulcer (principal); L97.512 Non-pressure chronic ulcer of other part of right foot with fat layer exposed; I87.333 Chronic venous hypertension (idiopathic) with ulcer and inflammation of bilateral lower extremity; L97.211 Non-pressure chronic ulcer of right calf limited to breakdown of skin; L97.221 Non-pressure chronic ulcer of left calf limited to breakdown of skin; I89.0 Lymphedema, not elsewhere classified; E11.42 Type 2 diabetes mellitus with diabetic polyneuropathy; E66.01 Morbid (severe) obesity due to excess calories; Z68.43 Body mass index [BMI] 50.0-59.9, adult | CPT/HCPCS: 11042 ==

== ENCOUNTER → 2018-06-16 | Outpatient (CLI) | payer MEDICAID, OTHER | LOC: WOUNDCARE 14:02 | PROVIDERS: ATTEND Surgery | DX: E11.621 Type 2 diabetes mellitus with foot ulcer (principal); L97.512 Non-pressure chronic ulcer of other part of right foot with fat layer exposed; I87.333 Chronic venous hypertension (idiopathic) with ulcer and inflammation of bilateral lower extremity; L97.211 Non-pressure chronic ulcer of right calf limited to breakdown of skin; L97.221 Non-pressure chronic ulcer of left calf limited to breakdown of skin; I89.0 Lymphedema, not elsewhere classified; E11.42 Type 2 diabetes mellitus with diabetic polyneuropathy; E66.01 Morbid (severe) obesity due to excess calories; Z68.43 Body mass index [BMI] 50.0-59.9, adult | CPT/HCPCS: 99215 ==

== ENCOUNTER → 2018-06-28 | Outpatient (CLI) | payer MEDICAID | LOC: WOUNDCARE 14:13 | PROVIDERS: ATTEND Surgery | DX: E11.621 Type 2 diabetes mellitus with foot ulcer (principal); L97.512 Non-pressure chronic ulcer of other part of right foot with fat layer exposed; I87.333 Chronic venous hypertension (idiopathic) with ulcer and inflammation of bilateral lower extremity; L97.221 Non-pressure chronic ulcer of left calf limited to breakdown of skin; L97.211 Non-pressure chronic ulcer of right calf limited to breakdown of skin; E11.42 Type 2 diabetes mellitus with diabetic polyneuropathy; I89.0 Lymphedema, not elsewhere classified; E66.01 Morbid (severe) obesity due to excess calories; Z68.43 Body mass index [BMI] 50.0-59.9, adult | CPT/HCPCS: 11042 ==

== ENCOUNTER 2018-07-05 12:03 | Inpatient (IN) | payer MEDICAID ==
[~2018-07-05] VITALS: Ht 177.8 cm; Wt 176.2 kg
--- OUTSIDE RECORDS SUMMARY | 2018-07-05 12:10 | XMS REPORT ---
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 Active 37645129 Problem Type 2 diabetes mellitus with 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 E11.65 Active 569917515 Problem Controlled type 2 diabetes mellitus without complication, without long -term current use of insulin E11.9 Active 995871442 Problem Diabetic polyneuropathy associated with type 2 diabetes mellitus E11.42 Active 73215479 Problem Uncontrolled type 2 diabetes mellitus with 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 E11.65 Active 146413658 Problem jail current use of insulin Z79.4 Active 954694759 Problem Neuropathy G62.9 Active 261118442 Problem Other male erectile dysfunction N52.8 Active 339576702 Problem Constipation K59.00 Active 02562627 Problem Obstructive sleep apnea G47.33 Active 91526882 Problem Uncontrolled type 2 diabetes mellitus without complication, without long-term current use of insulin E11.65 Active 676822559 Problem Fibromyalgia M79.7 Active 644086835 Problem Stress incontinence of urine N39.3 Active 23826853 Problem Arthritis M19.90 Active 0344770 Problem Hypertension, benign I10 Active 75475819 Problem Polyneuropathy G62.9 Active 35057832 ALLERGIES No Information ENCOUNTERS Encounter Location Date Diagnosis [facility] [address] [facility] [id number] [address] 3[address] Mar, [facility] [address] [place] [address] 24833- 5590 Mar, [facility] [address], [place] [address] 3403 Mar, [facility] [id number], [place] [address] 9618 Mar, [facility] [address] 2[address] Mar, Uncontrolled type 2 diabetes mellitus with 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 E11.65 and Diabetic polyneuropathy associated with type 2 diabetes mellitus E11.42 [facility] [address] [place] [address] 257152- 2391 Feb, [facility] [id number] [place] [address] 443610- 7176 Feb, [facility] [id number] [place] [address] 203047- 0497 Feb, [facility] [id number] [place] [address] 47470- 7984 Feb, [facility] [id number] [place] [address] 188658- 7559 Feb, [facility] [id number] [place] [address] 93922- 7353 Feb, Fibromyalgia M79.7 and Uncontrolled type 2 diabetes mellitus without complication, without long-term current use of insulin E11.65 [facility] [id number] [place] [address] 77546- 6198 Jan, [facility] [id number] [place] [address] 00309- 7612 Jan, [facility] [id number] [place] [address] 90319- 1589 Jan, Uncontrolled type 2 diabetes mellitus without complication, without long-term current use of insulin E11.65 [facility] [address] [place] [address] 88491- 3140 Jan, [facility] [id number] [place] [address] 966909- 0889 Dec, Therapeutic drug monitoring Z51.81 and Controlled type 2 diabetes mellitus without complication, without long-term current use of insulin E11.9 [facility] [id number] [place] [address] 56199- 9941 Dec, Renal insufficiency N28.9 [facility] [id number] [place] [address] 21831 2546 Dec, [facility] [id number] [place] [address] 67298 2546 Dec, Dizziness R42 [facility] [address] [address] 2546 Dec, Dizziness R42 and Encounter for immunization Z23 [facility] [address] 38117- 2880 Dec, Therapeutic drug monitoring Z51.81 and Controlled type 2 diabetes mellitus without complication, without long-term current use of insulin E11.9 [facility] [id number] [place] [address] 72460- 8714 Dec, [facility] [address] 44545- 8625 Dec, [facility] [address] [address] 2548 Dec, [facility] [id number] [place] [address] 98227- 2416 Nov, [facility] [id number] [place] [address] 34207- 7669 Nov, Therapeutic drug monitoring Z51.81 [facility] [id number] [place] [address] 45947- 5214 Nov, [facility] [id number] [place] [address] 17935 2542 Nov, Therapeutic drug monitoring Z51.81 ; Fibromyalgia M79.7 and Controlled type 2 diabetes mellitus without complication, without long-term current use of insulin E11.9 [facility] [address] [place] [address] 06303 2548 Nov, Type 2 diabetes mellitus with 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 E11.65 [facility] [address], [place] [address]- 3464 Nov, [facility] [address] [place] [address] 06220- 3834 Nov, [facility] [address], [place] [address]- 9090 Nov, Type 2 diabetes mellitus with 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 E11.65 [facility] [id number] [place] [address] 12874- 4160 Nov, [facility] [address] [place] [address] 08476- 2765 Nov, [facility] [id number] [place] [address] 40297- 2883 Nov, Constipation K59.00 [facility] [address], [place] [address]- 5446 Oct, Diabetes type 2, controlled E11.9 [facility] [address], [place] [address]- 8472 Oct, Type 2 diabetes mellitus with 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 E11.65 ; jail current use of insulin Z79.4 and Neuropathy G62.9 [facility] [address], [place] [address]- 8440 Oct, [facility] [address], [place] [address]- 3207 Oct, [facility] [address], [place] [address]- 3592 Oct, [facility] [address], [place] [address]- 7628 Oct, [facility] [address], [place] [address]- 9348 Oct, [facility] [address], [place] [address]- 1818 Oct, [facility] [address] [id number], [place] [address]- 3483 Oct, [facility] [id number] [place] [address] 17064- 7138 Sep, [facility] [id number] [place] [address] 21210- 4786 Sep, Uncontrolled type 2 diabetes mellitus without complication, without long-term current use of insulin E11.65 [place] [address] [place] [address] 94441- 3281 Sep, Hypertension, benign I10 ; Fibromyalgia M79.7 ; Controlled type 2 diabetes mellitus without complication, without long-term current use of insulin E11.9 and Uncontrolled type 2 diabetes mellitus without complication, without long-term current use of insulin E11.65 [place] [id number] [place] [address] 88022- 5919 Sep, [place] [id number] [place] [address] 63855- 0079 Sep, Uncontrolled type 2 diabetes mellitus without complication, without long-term current use of insulin E11.65 [facility] [place] [address] [place] [address] 58176- 6314 Sep, [place] [id number] [place] [address] 66520- 2267 Sep, [place] [address], [place] [address]- 4897 Sep, Uncontrolled type 2 diabetes mellitus without complication, without long-term current use of insulin E11.65 and Fibromyalgia M79.7 [place] [address], [place] [address]- 6144 August, [place] [id number] [place] [address] 08759- 7294 August, [place] [id number], [place] [address]- 4945 August, [facility] [id number] [place] [address] 51297- 4008 August, Fibromyalgia M79.7 [facility] [address] 18582- 3722 Jul, Hypertension, benign I10 [facility] [address] 48901- 1926 Jul, Fibromyalgia M79.7 [facility] [address] 28773- 8801 Jul, [facility] [address] 34975- 1192 Jun, [facility] [address] 56719- 3978 Jun, Hypertension, benign I10 ; Arthritis M19.90 ; 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 and Uncontrolled type 2 diabetes mellitus without complication, without long-term current use of insulin E11.65 [facility] [id number] [place] [address] 07027 -9686 Jun, Acute nasopharyngitis J00 and BMI 50.0-59.9, adult Z68.43 [facility] [address] 31166- 3639 Jun, Fibromyalgia M79.7 [facility] [id number] [place] [address] 39796- 6601 May, [facility] [address] 68992- 0551 May, Fibromyalgia M79.7 [facility] [address] 88475- 4113 Apr, Fibromyalgia M79.7 [facility] [id number] [place] [address] 14538- 4221 Apr, [facility] [address] 22816- 4724 Apr, [facility] [id number] [place] [address] 62347- 9226 Apr, Arthritis M19.90 [facility] [address] 00927 2546 Apr, Arthritis M19.90 [facility] [id number] [place] [address] 31203 2541 Apr, Arthritis M19.90 and Controlled type 2 diabetes mellitus without complication, without long-term current use of insulin E11.9 [facility] [address] [place] [address] 87057- 8527 Apr, [facility] [address] 30911- 9366 Apr, Fibromyalgia M79.7 [facility] [address] 63881- 6093 Mar, [facility] [id number] [place] [address] 58627- 8177 Mar, [facility] [id number] [place] [address] 99627- 3741 Mar, Fibromyalgia M79.7 [facility] [id number] [place] [address] 97771- 9887 Feb, [facility] [id number] [place] [address] 44441- 7576 Feb, [facility] [id number] [place] [address] 54913- 2549 Feb, [facility] [id number] [place] [address] 17419- 1535 Feb, Fibromyalgia M79.7 [facility] [id number] [place] [address] 99623- 2541 Feb, Diabetes type 2, uncontrolled E11.65 and Encounter for immunization Z23 [facility] [address] 84846- 7866 Jan, [facility] [address], [place] [address]- 7086 Jan, Fibromyalgia M79.7 [facility] [address] [place] [address] 44128- 8541 Dec, [facility] [address] [place] [address] 80662- 5941 Dec, Fibromyalgia M79.7 [facility] [id number] [place] [address] 01487- 0880 Nov, [facility] [id number] [place] [address] 55523- 0913 Nov, [facility] [id number] [place] [address] 04267- 0425 Nov, 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 and Polyneuropathy G62.9 [facility] [address] [place] [address] 62990- 2800 Nov, [facility] [address] [place] [address] 64956- 5969 Nov, [facility] [id number] [place] [address] 15955- 3950 Oct, Diabetes type 2, uncontrolled E11.65 [facility] [address] [place] [address] 14735- 4468 Oct, Diabetes type 2, uncontrolled E11.65 ; Polyneuropathy G62.9 and Pain in right wrist M25.531 [facility] [address], [place] [address]- 4619 Oct, [facility] [address] [place] [address] 47341- 7902 Oct, Pain in left shoulder M25.512 [facility] [address] [place] [address] 28232- 1110 Sep, [facility] [address], [place] [address]- 7048 Sep, Pain in left shoulder M25.512 [facility] [address], [place] [address]- 9016 Sep, [facility] [address], [place] [address]- 7520 August, Pain in left shoulder M25.512 [facility] [id number], [place] [address]- 4409 Jul, [facility] [address] [place] [address] 37792- 2617 Jul, [facility] [id number] [place] [address] 75109- 2538 Jul, Pain in left shoulder M25.512 [facility] [id number] [place] [address] 43729- 2557 Jun, [facility] [address], [place] [address]- 9339 Jun, [facility] [id number] [place] [address] 39604- 6307 Jun, Diabetes type 2, uncontrolled E11.65 ; Fibromyalgia M79.7 and Arthritis M19.90 [facility] [address], [place] [address]- 0719 Jun, Pain in left shoulder M25.512 [facility] [address], [place] [address]- 8021 May, [facility] [address]- 0843 May, Diabetes type 2, controlled E11.9 [facility] [address]- 7636 May, [facility] [id number], [place] [address]- 9142 15 May, 2016 Uncontrolled type 2 diabetes mellitus without complication, without long-term current use of insulin E11.65 [facility] [address] [place] [address] 77824- 2817 15 May, 2016 Pain in left shoulder M25.512 [facility] [address]- 8787 03 May, 2016 Diabetes type 2, controlled E11.9 and Uncontrolled type 2 diabetes mellitus without complication, without long-term current use of insulin E11.65 [facility] [address], [place] [address]- 1291 Apr, [facility] [id number] [place] [address] 94641- 7645 Apr, [facility] [id number] [place] [address] 23455- 5214 Mar, [facility] [id number] [place] [address] 14653- 4754 Mar, [facility] [address] [place] [address] 93031- 6456 Mar, [facility] [address] [place] [address] 99750- 8870 Feb, [facility] [address] [address] Feb, Dental examination Z01.20 [facility] [address], [place] [address]- 1569 Jan, [facility] [address], [place] [address]- 7384 14 Dec, 2015 [facility] [id number] [place] [address] 968463- 7549 Dec, [facility] [address]- 2209 Dec, [facility] [id number] [place] [address], [place] [address]- 7284 Dec, Diabetes type 2, controlled E11.9 [facility] [address] [facility] [id number] [place] [address]- 9700 Nov, [facility] [address] [facility] [id number] [place] [address]- 5521 Nov, [facility] [address] [facility] [id number] [place] [address]- 7106 Nov, [facility] [address] [facility] [id number] [place] [address]- 7255 Nov, [facility] [address] [facility] [id number] [place] [address]- 4173 Oct, [facility] [address] [facility] [id number] [place] [address]- 9196 Oct, [facility] [address] [address]- 6298 Oct, [facility] [address] [facility] [id number], [place] [address]- 3805 Sep, [facility] [address] [place] [address]- 1217 Sep, Diabetes type 2, controlled E11.9 [facility] [address] [facility] [id number], [place] [address]- 2547 Sep, Diabetes type 2, controlled E11.9 [facility] [address] [facility] [id number], [place] [address]- 0714 August, [facility] [address] [facility] [id number], [place] [address]- 7170 August, [facility] [id number], [place] [address]- 3778 August, Type 2 diabetes mellitus without complication E11.9 and Pain in left shoulder M25.512 [facility] [id number], [place] [address]- 1553 Jul, [facility] [address] [place] [address] 81203- 1871 Jul, Diabetes type 2, controlled E11.9 and Hypertension, benign I10 [facility] [id number] [place] [address] 30447- 4471 Jun, [facility] [id number] [place] [address] 05786- 7060 Jun, [facility] [id number] [place] [address] 97340- 8836 Jun, Diabetes 250.00 [facility] [address] 18489- 4218 Jun, [facility] [id number] [place] [address] 13486- 3904 May, Diabetes type 2, uncontrolled E11.65 [facility] [id number] [place] [address] 45026- 1470 May, [facility] [id number] [place] [address] 13940- 2792 Apr, Type 2 diabetes mellitus without complication E11.9 [facility] [id number] [place] [address] 02197- 6326 Apr, Encounter for immunization Z23 [facility] [id number] [place] [address] 91151- 9497 Apr, [facility] [id number] [place] [address] 93724- 2979 Mar, [facility] [id number] [place] [address] 31495- 2558 Mar, [facility] [id number] [place] [address] 37280- 6107 Mar, [facility] [id number] [place] [address] 12135- 5430 Feb, [facility] [address], [place] [address]- 8727 Jan, [facility] [address] 7250 Jan, [facility] [address]- 7682 Jan, [facility] [id number] [place] [address] 834618- 3906 Dec, Diabetes 250.00 and COPD (chronic obstructive pulmonary disease) 496 [facility] [address] [place] [address], [place] [address]- 9472 Dec, [facility] [address], [place] [address]- 0057 Dec, [facility] [address] [place] [address] 20914- 8742 Nov, [facility] [address], [place] [address]- 5174 Oct, Diabetes 250.00 [facility] [address], [place] [address]- 1751 Sep, [facility] [address], [place] [address]- 8900 Sep, [facility] [address], [place] [address]- 4710 Sep, [facility] [address], [place] [address]- 9913 Sep, Diabetes 250.00 [facility] [address] 8449 Sep, [facility] [address]- 6922 Sep, [facility] [address] 7286 August, Hypertension, essential, benign 401.1 ; Coronary atherosclerosis of [place] coronary artery 414.01 and Diabetic neuropathy associated with type 2 diabetes mellitus 250.60 [facility] [id number], [place] [address]- 8496 Jul, [facility] [id number], [place] [address]- 5966 Jul, [facility] [id number] [place] [address] 57843- 3885 Jul, [facility] [id number] [place] [address] 97246- 1730 Jun, [facility] [id number] [place] [address] 61220- 5229 Jun, [facility] [id number] [place] [address] 33546- 9921 Jun, [facility] [id number] [place] [address] 39270- 2145 Jun, [facility] [id number] [address] Jun, [facility] [id number] [place] [address] 15715- 7425 May, [facility] [id number] [address] May, [facility] [id number] [address] May, [facility] [id number] [address] May, [facility] [id number] [address] May, [facility] [id number] [address] May, [facility] [id number] [address] May, [facility] [place] [facility] [address] [id number] [place] [address] Apr, [facility] [place] [facility] [address] [id number] [place] [address]- 0716 Apr, [facility] [place] [facility] [address] [facility] [id number] [place] [address]- 2455 Apr, [facility] [place] [facility] [address] [id number] [place] [address]- [address] Apr, [facility] [place] [facility] [address] [facility] [id number] [place] [address]- [address]694 Mar, [facility] [place] [facility] [address] [facility] [id number] [place] [address]- [address]497 Mar, [facility] [place] [facility] [address] [facility] [id number] [place] [address]- 9007 Mar, [facility] [place] [facility] [address] [facility] [id number] [place] [address] Mar, [facility] [place] [facility] [address] [facility] [id number] [place] [address] 90[address] Feb, [facility] [place] [facility] [address] [facility] [id number] [place] [address] 38[address] Feb, [facility] [place] [facility] [address] [id number] [place] [address] 27[address] Feb, [facility] [place] [facility] [address] [id number], [place] [address] Feb, [facility] [place] [facility] [address] [id number][place] [address] Feb, [facility] [place] [facility] [address] [facility] [id number], [place] [address] 74[address] Feb, [facility] [place] [facility] [address] [facility] [id number], [place] [address] 67[address] Feb, [facility] [place] [facility] [address] [id number] [place] [address] 3682 Jan, [facility] [place] [facility] [address] [id number] [place] [address] 7891 Jan, [facility] [place] [facility] [address] [id number] [place] [address] 23 Dec, 2013 [facility] [place] [facility] [address] [id number] [place] [address]- 4052 23 Dec, 2013 [facility] [place] [facility] [address] [id number] [place] [address] 2542 10 Dec, 2013 [facility] [place] [facility] [address] [id number] [place] [address]- 4133 10 Dec, 2013 [facility] [place] [facility] [address] [id number] [place] [address]- 8706 04 Dec, 2013 [facility] [place] [facility] [address] [id number] [place] [address]- 8785 04 Dec, 2013 [facility] [place] [facility] [address] [id number] [place] [address]- 7372 Dec, [facility] [place] [facility] [address] [id number] [place] [address]- 9353 Dec, [facility] [place] [facility] [address] [id number] [place] [address]- 8595 Nov, [facility] [place] [facility] [address] [id number] [place] [address]- 0896 Nov, [facility] [place] [facility] [address] [id number] [place] [address]- 4025 Nov, [facility] [place] [facility] [address] [id number] [place] [address]- 2389 Nov, [facility] [place] [facility] [address] [id number] [place] [address]- 0303 14 Oct, 2013 [facility] [place] [facility] [address] [id number] [place] [address]- 3251 Oct, [facility] [place] [facility] [address] [id number] [place] [address]- 3802 Oct, [facility] [place] [facility] [address] [id number] [place] [address]- 9551 Oct, [facility] [place] [facility] [address] [id number] [place] [address] Oct, [facility] [place] [facility] [address] [id number] [place] [address]- 0555 Oct, [facility] [place] [facility] [address] [id number] [place] [address]- 0277 Oct, [facility] [place] [facility] [address] [id number] [place] [address]- 4615 Oct, [facility] [place] [facility] [address] [id number] [place] [address]- 4417 Sep, [facility] [place] [facility] [address] [id number] [place] [address]- 0929 Sep, [facility] [place] [facility] [address] [id number] [place] [address]- 5324 August, [facility] [place] [facility] [address] [id number] [place] [address]- 9604 August, [facility] [place] [facility] [address] [id number] [place] [address]- 3985 Jul, [facility] [place] [facility] [address] [id number] [place] [address]- 2973 Jul, [facility] [place] [facility] [address] [id number] [place] [address]- 9240 Jul, [facility] [place] [facility] [address] [id number] [place] [address]- 2070 Jul, [facility] [place] [facility] [address] [id number] [place] [address]- 7870 Jul, [facility] [place] [facility] [address] [id number] [place] [address]- 2089 Jul, [facility] [address] [id number] [place] [address]- 7271 Jul, [facility] [place] [facility] [address] [id number] [place] [address]- 7713 Jul, [facility] [place] [facility] [address] [id number] [place] [address]- 0419 Jun, [facility] [place] [facility] [address] [id number] [place] [address]- 7077 Jun, [facility] [place] [facility] [address] [id number] [place] [address]- 3871 Jun, [facility] [place] [facility] [address] [id number] [place] [address]- 8148 Jun, [facility] [place] [facility] [address] [id number] [place] [address]- 2300 May, [facility] [place] [facility] [address] [id number] [place] [address]- 0288 May, [facility] [place] [facility] [address] [id number] [place] [address]- 6578 Apr, [facility] [address] [id number] [place] [address]- 4356 Apr, [facility] [place] [facility] [address] [id number] [place] [address]- 7616 Mar, [facility] [place] [facility] [address] [id number] [place] [address]- 0140 Mar, [facility] [place] [facility] [address] [id number] [place] [address]75 Mar, [facility] [place] [facility] [address] [id number] [place] [address]- 1673 Mar, [facility] [place] [facility] [address] [id number] [place] [address] Mar, [facility] [place] [facility] [address] [id number] [place] [address]- 3728 18 Mar, 2013 [facility] [place] [facility] [address] [id number] [place] [address]- 5283 Feb, [facility] [place] [facility] [address] [id number] [place] [address]- 9838 Feb, [facility] [place] [facility] [address] [id number] [place] [address]- 2817 Feb, [facility] [place] [facility] [address] [id number] [place] [address]- 3492 Feb, [facility] [place] [facility] [address] [id number] [place] [address]- 7311 Feb, [facility] [place] [facility] [address] [id number] [place] [address]- 5051 Feb, [facility] [place] [facility] [address] [id number], [place] [address]- 5847 Feb, [facility] [place] [facility] [address] [id number], [place] [address]- 1647 12 Feb, 2013 [facility] [place] [facility] [address] [id number], [place] [address]- 4359 15 Jan, 2013 [facility] [place] [facility] [address] [id number], [place] [address]- 7320 15 Jan, 2013 [facility] [place] [facility] [address] [id number], [place] [address]- 1831 14 Jan, 2013 [facility] [place] [facility] [address] [id number], [place] [address]- 5384 14 Jan, 2013 [facility] [place] [facility] [address] [id number], [place] [address]- 1305 18 Dec, 2012 [facility] [place] [facility] [address] [id number], [place] [address]- 6867 13 Dec, 2012 [facility] [place] [facility] [address] [id number][place] [address]- 1672 Dec, [facility] [address] [id number] [place] [address]- 7719 Nov, [facility] [place] [facility] [address] [id number] [place] [address]- 9954 Nov, [facility] [place] [facility] [address] [id number] [place] [address]- 7550 Oct, [facility] [place] [facility] [address] [id number] [place] [address]- 1698 Oct, [facility] [place] [facility] [address] [id number] [place] [address]- 7500 Oct, [facility] [place] [facility] [address] [id number] [place] [address]- 1812 Sep, [facility] [place] [facility] [address] [id number] [place] [address]- 9909 Sep, [facility] [place] [facility] [address] [id number] [place] [address]- 6908 Sep, [facility] [place] [facility] [address] [id number] [place] [address]- 9537 Sep, [facility] [place] [facility] [address] [id number] [place] [address]- 9526 Sep, [facility] [place] [facility] [address] [id number] [place] [address]- 7628 Sep, [facility] [place] [facility] [address] [id number] [place] [address]- 1226 August, [facility] [place] [facility] [address] [id number] [place] [address] August, [facility] [place] [facility] [address] [id number] [place] [address]- 9688 August, [facility] [place] [facility] [address] [id number] [place] [address]- 7180 August, [facility] [place] [facility] [address] [id number] [place] [address]- 3939 August, [facility] [address] [id number] [place] [address]- 7653 August, [facility] [place] [facility] [address] [id number] [place] [address]- 2386 August, [facility] [address] [id number] [place] [address]- 3417 Jul, [facility] [place] [facility] [address] [id number] [place] [address]- 2205 Jul, [facility] [address] [id number] [place] [address]- 1172 Jun, [facility] [address] [id number] [place] [address]- 5931 Jun, [facility] [address] [id number] [place] [address]- 1871 May, [facility] [address] [id number] [place] [address]- 7295 May, [facility] [address] [id number] [place] [address]- 1529 Apr, [facility] [address] [id number] [place] [address]- 8704 Mar, [facility] [address] [id number] [place] [address]- 4646 Mar, [facility] [place] [facility] [address] [id number] [place] [address] Mar, [facility] [place] [facility] [address] [id number] [place] [address]- 3225 Mar, [facility] [place] [facility] [address] [id number] [place] [address]- 5636 Mar, [facility] [place] [facility] [address] [id number] [place] [address]- 1944 Mar, [facility] [place] [facility] [address] [id number] [place] [address]- 3012 Feb, [facility] [place] [facility] [address] [id number], [place] [address]- 0043 Feb, [facility] [place] [facility] [address] [facility] [id number] [place] [address]- 5637 Feb, [facility] [place] [facility] [address] [id number], [place] [address]- 7403 Feb, [facility] [place] [facility] [address] [id number] [place] [address]- 3273 Feb, [facility] [place] [facility] [address] [facility] [id number], [place] [address]- 3507 Feb, [facility] [place] [facility] [address] [facility] [id number] [place] [address]- 0004 Feb, [facility] [place] [facility] [address] [id number], [place] [address]- 7890 Feb, [facility] [place] [facility] [address] [facility] [id number], [place] [address]- 7733 Jan, [facility] [place] [facility] [address] [facility] [id number], [place] [address]- 3581 Jan, [facility] [place] [facility] [address] [id number], [place] [address]- 0117 28 Dec, 2011 [facility] [place] [facility] [address] [id number], [place] [address]- 7196 19 Dec, 2011 [facility] [place] [facility] [address] [id number], [place] [address]- 1988 18 Dec, 2011 [facility] [place] [facility] [address] [facility] [id number], [place] [address]- 8735 18 Dec, 2011 [facility] [place] [facility] [address] [facility] [id number], [place] [address]- 9349 04 Dec, 2011 [facility] [place] [facility] [address] [id number] [place] [address]- 7396 Nov, [facility] [place] [facility] [address] [id number] [place] [address]- 1003 Oct, [facility] [place] [facility] [address] [id number] [place] [address]- 5646 Oct, [facility] [place] [facility] [address] [id number] [place] [address]- 1152 Sep, [facility] [place] [facility] [address] [id number] [place] [address]- 0134 Sep, [facility] [place] [facility] [address] [id number] [place] [address]- 3396 Sep, [facility] [place] [facility] [address] [id number] [place] [address]- 6789 Sep, [facility] [place] [facility] [address] [id number] [place] [address]- 5507 Sep, [facility] [place] [facility] [address] [id number] [place] [address]- 5973 Sep, [facility] [place] [facility] [address] [id number] [place] [address]- 2188 Sep, [facility] [place] [facility] [address] [id number] [place] [address]- 1783 Sep, [facility] [place] [facility] [address] [id number] [place] [address]- 8287 August, [facility] [place] [facility] [address] [id number] [place] [address]- 4409 August, [facility] [place] [facility] [address] [id number] [place] [address]- 8633 August, [facility] [place] [facility] [address] [id number] [place] [address]- 5134 Jul, [facility] [place] [facility] [address] [id number] [place] [address]- 2279 Jul, [facility] [place] [facility] [address] [id number] [place] [address]- 2104 Jun, [facility] [place] [facility] [address] [id number] [place] [address]- 9944 Jun, [facility] [place] [facility] [address] [id number] [place] [address]- 6255 Jun, [facility] [place] [facility] [address] [id number] [place] [address]- 7306 Jun, [facility] [address] [id number] [place] [address]- 6703 May, [facility] [place] [facility] [address] [id number] [place] [address]- 7436 May, [facility] [address] [id number] [place] [address]- 7353 Apr, [facility] [address] [id number] [place] [address]- 2025 Apr, [facility] [address] [id number] [place] [address]- 1804 Apr, [facility] [address] [id number] [place] [address]- 6408 Mar, [facility] [place] [facility] [address] [id number] [place] [address]- 2059 Mar, [facility] [place] [facility] [address] [id number], [place] [address]- 3181 Mar, [facility] [place] [facility] [address] [id number] [place] [address]- 1441 Feb, [facility] [place] [facility] [address] [id number] [place] [address]- 2176 Feb, [facility] [place] [facility] [address] [id number], [place] [address]- 0029 Feb, [facility] [place] [facility] [address] [id number], [place] [address]- 3102 09 Feb, 2011 [facility] [address] [id number] [place] [address]- 1403 25 Jan, 2011 [facility] [place] [facility] [address] [id number] [place] [address]- 9347 14 Jan, 2011 [facility] [place] [facility] [address] [facility] [id number] [place] [address]- 0250 12 Jan, 2011 [facility] [place] [facility] [address] [id number] [place] [address]- 8218 16 Dec, 2010 [facility] [place] [facility] [address] [id number] [place] [address], [place] [address]- 7817 Oct, [facility] [place] [facility] [address] [id number] [place] [address]- 1905 24 Mar, 2010 [facility] [place] [facility] [address] [facility] [id number], [place] [address]- 4977 Feb, [facility] [place] [facility] [address] [facility] [id number] [place] [address]- 0988 Feb, [facility] [place] [facility] [address] [facility] [id number], [place] [address]- 6796 16 May, 2009 [facility] [place] [facility] [address] [facility] [id number], [place] [address]- 3385 Apr, [facility] [place] [facility] [address] [facility] [id number], [place] [address]- 7155 29 Mar, 2009 [facility] [place] [facility] [address] [id number], [place] [address]- 1085 30 Jan, 2009 [facility] [place] [facility] [address] [id number], [place] [address]- 8587 15 Oct, 2008 [facility] [place] [facility] [address] [facility] [id number][place] 0184 16 Jul, 2008 [facility] [place] [facility] [address] [facility] [id number][place]- 3215 04 Mar, 2008 [facility] [place] [facility] [address] [facility] [id number] [place] [address]- 2696 Feb, [facility] [address] [facility] [id number] [place] [address] Jan, IMMUNIZATIONS No Known Immunizations SOCIAL HISTORY Never Assessed REASON FOR VISIT Medication refill request PLAN OF CARE VITAL SIGNS MEDICATIONS Medication Instructions Dosage Frequency Start Date End Date Duration Status C-PAP Supplies as directed Mar, Active RESULTS No Results PROCEDURES No Known [...] Masters) Surgical History tonsillectomy Hospitalization History surgeries Hospitalization History falls 11/01/2017
--- OUTSIDE RECORDS SUMMARY | 2018-07-05 12:10 | XMS REPORT ---
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 Active 57073037 Problem Type 2 diabetes mellitus with 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 E11.65 Active 184161055 Problem Controlled type 2 diabetes mellitus without complication, without long -term current use of insulin E11.9 Active 095739403 Problem Diabetic polyneuropathy associated with type 2 diabetes mellitus E11.42 Active 07552540 Problem Uncontrolled type 2 diabetes mellitus with 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 E11.65 Active 926260294 Problem nursing home current use of insulin Z79.4 Active 938202325 Problem Neuropathy G62.9 Active 761186696 Problem Other male erectile dysfunction N52.8 Active 686734095 Problem Constipation K59.00 Active 74741351 Problem Obstructive sleep apnea G47.33 Active 82824956 Problem Uncontrolled type 2 diabetes mellitus without complication, without long-term current use of insulin E11.65 Active 621474287 Problem Fibromyalgia M79.7 Active 576540014 Problem Stress incontinence of urine N39.3 Active 26762670 Problem Arthritis M19.90 Active 5289765 Problem Hypertension, benign I10 Active 86003311 Problem Polyneuropathy G62.9 Active 52408885 ALLERGIES No Information ENCOUNTERS Encounter Location Date Diagnosis [facility] [address] [facility] [id number] [address] Mar, [facility] [id number] [place] [address] 74259- 5871 Mar, [facility] [address] [address] 8766 Mar, [facility] [id number] [address] 0320 Mar, [facility] [address] [address] Mar, Uncontrolled type 2 diabetes mellitus with 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 E11.65 and Diabetic polyneuropathy associated with type 2 diabetes mellitus E11.42 [facility] [id number] [place] [address] 481613- 7476 Feb, [facility] [id number] [place] [address] 241629- 7335 Feb, [facility] [id number] [place] [address] 214218- 3571 Feb, [facility] [id number] [place] [address] 30390- 7610 Feb, [facility] [id number] [place] [address] 792614- 6536 Feb, [facility] [id number] [place] [address] 92110- 3124 Feb, Fibromyalgia M79.7 and Uncontrolled type 2 diabetes mellitus without complication, without long-term current use of insulin E11.65 [facility] [id number] [place] [address] 50943- 8760 Jan, [facility] [id number] [place] [address] 48046- 9634 Jan, [facility] [id number] [place] [address] 45687- 3023 Jan, Uncontrolled type 2 diabetes mellitus without complication, without long-term current use of insulin E11.65 [facility] [id number] [place] [address] 42872- 4637 Jan, [facility] [id number] [place] [address] 588613- 7657 Dec, Therapeutic drug monitoring Z51.81 and Controlled type 2 diabetes mellitus without complication, without long-term current use of insulin E11.9 [facility] [id number] [place] [address] 27433- 8411 Dec, Renal insufficiency N28.9 [facility] [id number] [place] [address] 12245 2546 Dec, [facility] [id number] [place] [address] 08839 2546 Dec, Dizziness R42 [facility] [address] [address] 2546 Dec, Dizziness R42 and Encounter for immunization Z23 [facility] [address] 47452- 2479 Dec, Therapeutic drug monitoring Z51.81 and Controlled type 2 diabetes mellitus without complication, without long-term current use of insulin E11.9 [facility] [id number] [place] [address] 04666- 2128 Dec, [facility] [address] 24896- 9884 Dec, [facility] [address] 57952 2544 Dec, [facility] [id number] [place] [address] 14029- 1152 Nov, [facility] [id number] [place] [address] 92382- 0669 Nov, Therapeutic drug monitoring Z51.81 [facility] [id number] [place] [address] 37928- 6189 Nov, [facility] [id number] [place] [address] 52029 2542 Nov, Therapeutic drug monitoring Z51.81 ; Fibromyalgia M79.7 and Controlled type 2 diabetes mellitus without complication, without long-term current use of insulin E11.9 [facility] [id number] [place] [address] 35377 2542 Nov, Type 2 diabetes mellitus with 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 E11.65 [facility] [address] [address]- 3721 Nov, [facility] [id number] [place] [address] 62624- 1386 Nov, [facility] [address] [address]- 8412 Nov, Type 2 diabetes mellitus with 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 E11.65 [facility] [id number] [place] [address] 65766- 5232 Nov, [facility] [id number] [place] [address] 72345- 9729 Nov, [facility] [id number] [place] [address] 24981- 6634 Nov, Constipation K59.00 [facility] [address] [address]- 9921 Oct, Diabetes type 2, controlled E11.9 [facility] [address] [address]- 3119 Oct, Type 2 diabetes mellitus with 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 E11.65 ; nursing home current use of insulin Z79.4 and Neuropathy G62.9 [facility] [address] [address]- 4631 Oct, [facility] [address] [address]- 5379 Oct, [facility] [address] [address]- 0709 Oct, [facility] [address] [address]- 7398 Oct, [facility] [address] [address]- 1977 Oct, [facility] [address] [address]- 7660 Oct, [facility] [id number] [address]- 7946 Oct, [facility] [id number] [place] [address] 63732- 3405 Sep, [facility] [id number] [place] [address] 62515- 1607 Sep, Uncontrolled type 2 diabetes mellitus without complication, without long-term current use of insulin E11.65 [facility] [id number] [place] [address] 47345- 3660 Sep, Hypertension, benign I10 ; Fibromyalgia M79.7 ; Controlled type 2 diabetes mellitus without complication, without long-term current use of insulin E11.9 and Uncontrolled type 2 diabetes mellitus without complication, without long-term current use of insulin E11.65 [facility] [id number] [place] [address] 66784- 4359 Sep, [facility] [id number] [place] [address] 61188- 9324 Sep, Uncontrolled type 2 diabetes mellitus without complication, without long-term current use of insulin E11.65 [facility] [id number] [place] [address] 11592- 7451 Sep, [facility] [facility] [id number] [place] [address] 86809- 6809 Sep, [facility] [facility] [address] [address]- 9886 Sep, Uncontrolled type 2 diabetes mellitus without complication, without long-term current use of insulin E11.65 and Fibromyalgia M79.7 [place] [facility] [address] [address]- 6933 August, [facility] [id number] [place] [address] 85840- 8571 August, [facility] [id number] [address]- 2989 August, [facility] [id number] [place] [address] 96101- 7903 August, Fibromyalgia M79.7 [facility] [address] 57591- 2908 Jul, Hypertension, benign I10 [facility] [address] 11618- 4147 Jul, Fibromyalgia M79.7 [facility] [address] 25512- 4967 Jul, [facility] [address] 63025- 0990 Jun, [facility] [address] 52952- 0551 Jun, Hypertension, benign I10 ; Arthritis M19.90 ; long term 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 care 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 nurse 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 use 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 Z79.891 and Uncontrolled type 2 diabetes mellitus without complication, without long-term current use of insulin E11.65 [facility] [id number] [place] [address] 69368 -0840 Jun, Acute nasopharyngitis J00 and BMI 50.0-59.9, adult Z68.43 [facility] [address] 42779- 4613 Jun, Fibromyalgia M79.7 [facility] [id number] [place] [address] 69327- 0809 May, [facility] [address] 33325- 0290 May, Fibromyalgia M79.7 [facility] [address] 90126- 2945 Apr, Fibromyalgia M79.7 [facility] [id number] [place] [address] 07649- 7018 Apr, [facility] [address] 13770- 2987 Apr, [facility] [id number] [place] [address] 27089- 0903 Apr, Arthritis M19.90 [facility] [address] 77121 2546 Apr, Arthritis M19.90 [facility] [id number] [place] [address] 80169 2549 Apr, Arthritis M19.90 and Controlled type 2 diabetes mellitus without complication, without long-term current use of insulin E11.9 [facility] [id number] [place] [address] 46200- 2398 Apr, [facility] [address] 10923- 1666 Apr, Fibromyalgia M79.7 [facility] [address] 87544- 8872 Mar, [facility] [id number] [place] [address] 83791- 5418 Mar, [facility] [id number] [place] [address] 33642- 5145 Mar, Fibromyalgia M79.7 [facility] [id number] [place] [address] 11276- 6804 Feb, [facility] [id number] [place] [address] 24813- 8676 Feb, [facility] [id number] [place] [address] 02941- 2549 Feb, [facility] [id number] [place] [address] 52059- 4169 Feb, Fibromyalgia M79.7 [facility] [id number] [place] [address] 69598- 2544 Feb, Diabetes type 2, uncontrolled E11.65 and Encounter for immunization Z23 [facility] [address] 94247- 9257 Jan, [facility] [address] [address]- 6975 Jan, Fibromyalgia M79.7 [facility] [id number] [place] [address] 98379- 4502 Dec, [facility] [id number] [place] [address] 22508- 6094 Dec, Fibromyalgia M79.7 [facility] [id number] [place] [address] 18913- 4809 Nov, [facility] [id number] [place] [address] 77076- 3462 Nov, [facility] [id number] [place] [address] 30432- 4206 Nov, 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 and Polyneuropathy G62.9 [facility] [id number] [place] [address] 32658- 6939 Nov, [facility] [id number] [place] [address] 06527- 5446 Nov, [facility] [id number] [place] [address] 55530- 8011 Oct, Diabetes type 2, uncontrolled E11.65 [facility] [id number] [place] [address] 89589- 3107 Oct, Diabetes type 2, uncontrolled E11.65 ; Polyneuropathy G62.9 and Pain in right wrist M25.531 [facility] [address] [address]- 1670 Oct, [facility] [id number] [place] [address] 30845- 0537 Oct, Pain in left shoulder M25.512 [facility] [id number] [place] [address] 94550- 7115 Sep, [facility] [address] [address]- 5951 Sep, Pain in left shoulder M25.512 [facility] [address] [address]- 1796 Sep, [facility] [address] [address]- 9217 August, Pain in left shoulder M25.512 [facility] [id number] [address]- 1011 Jul, [facility] [id number] [place] [address] 08176- 9071 Jul, [facility] [id number] [place] [address] 94012- 8069 Jul, Pain in left shoulder M25.512 [facility] [id number] [place] [address] 01755- 8003 Jun, [facility] [address] [address]- 9044 Jun, [facility] [id number] [place] [address] 29891- 1556 Jun, Diabetes type 2, uncontrolled E11.65 ; Fibromyalgia M79.7 and Arthritis M19.90 [facility] [address] [address]- 7809 Jun, Pain in left shoulder M25.512 [facility] [address] [address]- 1143 May, [facility] [address] 3831 May, Diabetes type 2, controlled E11.9 [facility] [address] 9956 May, [facility] [id number] [address]- 3114 15 May, 2016 Uncontrolled type 2 diabetes mellitus without complication, without long-term current use of insulin E11.65 [facility] [address] [place] [address] 17901- 3168 15 May, 2016 Pain in left shoulder M25.512 [facility] [address]- 8622 03 May, 2016 Diabetes type 2, controlled E11.9 and Uncontrolled type 2 diabetes mellitus without complication, without long-term current use of insulin E11.65 [facility] [address] [address]- 6127 Apr, [facility] [id number] [place] [address] 21980- 9064 Apr, [facility] [id number] [place] [address] 67410- 0149 Mar, [facility] [id number] [place] [address] 55283- 9140 Mar, [facility] [id number] [place] [address] 28559- 1546 Mar, [facility] [id number] [place] [address] 92852- 2778 Feb, [facility] [address] [address] Feb, Dental examination Z01.20 [facility] [address] [address]- 1357 Jan, [facility] [address] [address]- 5320 14 Dec, 2015 [facility] [id number] [place] [address] 349717- 2293 Dec, [facility] [address] 5975 Dec, [facility] [id number] [place] [address], [place] [address]- 2479 Dec, Diabetes type 2, controlled E11.9 [facility] [address] [facility] [id number] [place] [address]- 0044 Nov, [facility] [address] [facility] [id number] [place] [address]- 4682 Nov, [facility] [address] [facility] [id number] [place] [address]- 4675 Nov, [facility] [address] [facility] [id number] [place] [address]- 8492 Nov, [facility] [address] [facility] [id number] [place] [address]- 1630 Oct, [facility] [address] [facility] [id number] [place] [address]- 8377 Oct, [facility] [address] [place] [address]- 1533 Oct, [facility] [address] [facility] [id number] [place] [address]- 6487 Sep, [facility] [address] [place] [address]- 6900 Sep, Diabetes type 2, controlled E11.9 [facility] [address] [facility] [id number] [place] [address]- 5833 Sep, Diabetes type 2, controlled E11.9 [facility] [address] [facility] [id number] [address]- 3555 August, [facility] [address] [facility] [id number] [place] [address]- 3393 August, [facility] [id number] [address]- 3477 August, Type 2 diabetes mellitus without complication E11.9 and Pain in left shoulder M25.512 [facility] [id number] [address]- 7364 Jul, [facility] [id number] [place] [address] 12891- 3212 Jul, Diabetes type 2, controlled E11.9 and Hypertension, benign I10 [facility] [id number] [place] [address] 23214- 9247 Jun, [facility] [id number] [place] [address] 44939- 4706 Jun, [facility] [id number] [place] [address] 09591- 5699 Jun, Diabetes 250.00 [facility] [address] 84452- 6914 Jun, [facility] [id number] [place] [address] 59483- 7500 May, Diabetes type 2, uncontrolled E11.65 [facility] [id number] [place] [address] 19672- 4929 May, [facility] [id number] [place] [address] 05150- 7409 Apr, Type 2 diabetes mellitus without complication E11.9 [facility] [id number] [place] [address] 60724- 8431 Apr, Encounter for immunization Z23 [facility] [id number] [place] [address] 29278- 1545 Apr, [facility] [id number] [place] [address] 62122- 6291 Mar, [facility] [id number] [place] [address] 93953- 5215 Mar, [facility] [id number] [place] [address] 77217- 5009 Mar, [facility] [id number] [place] [address] 83280- 2507 Feb, [facility] [address] [address]- 8468 Jan, [facility] [address] 7686 Jan, [facility] [address] 2033 Jan, [facility] [id number] [place] [address] 754577- 6521 Dec, Diabetes 250.00 and COPD (chronic obstructive pulmonary disease) 496 [facility] [address] [place] [address], [place] [address]- 1713 Dec, [facility] [address] [address]- 5275 Dec, [facility] [id number] [place] [address] 31273- 1076 Nov, [facility] [address] [address]- 4420 Oct, Diabetes 250.00 [facility] [address] [address]- 2659 Sep, [facility] [address] [address]- 4016 Sep, [facility] [address] [address]- 8982 Sep, [facility] [address] [address]- 7285 Sep, Diabetes 250.00 [facility] [address] 7903 Sep, [facility] [id number] [id number] Sep, [facility] [id number] [address] August, Hypertension, essential, benign 401.1 ; Coronary atherosclerosis of [place] coronary artery 414.01 and Diabetic neuropathy associated with type 2 diabetes mellitus 250.60 [facility] [id number] [address] Jul, [facility] [id number] [address] Jul, [facility] [id number] [place] [address] Jul, [facility] [id number] [place] [address]- [address] Jun, [facility] [id number] [place] [address] Jun, [facility] [id number] [place] [address]- [address] Jun, [facility] [id number] [place] [address]- 1381 Jun, [facility] [address] [address] Jun, [facility] [id number] [place] [address]- [address] May, [facility] [address] [address] May, [facility] [id number] [address] May, [facility] [id number] [address] May, [facility] [id number] [address] [address] May, [facility] [address] [address] May, [facility] [id number] [address] May, [facility] [place] [facility] [address] [id number] [place] [address] Apr, [facility] [place] [facility] [address] [id number] [place] [address] Apr, [facility] [place] [facility] [address] [facility] [id number] [place] [address] Apr, [facility] [place] [facility] [address] [id number] [place] [address] Apr, [facility] [place] [facility] [address] [facility] [id number] [place] [address] Mar, [facility] [place] [facility] [address] [facility] [id number] [place] [address]- [address] Mar, [facility] [place] [facility] [address] [facility] [id number] [place] [address]- 3800 Mar, [facility] [place] [facility] [address] [facility] [id number] [place] [address] Mar, [facility] [place] [facility] [address] [facility] [id number] [place] [address] 8491 Feb, [facility] [place] [facility] [address] [facility] [id number] [place] [address]- 5711 Feb, [facility] [place] [facility] [address] [id number] [place] [address] 2615 Feb, [facility] [place] [facility] [address] [id number] [place] [address] 78[address] Feb, [facility] [place] [facility] [address] [id number] [place] [address] 7110 Feb, [facility] [place] [facility] [address] [facility] [id number] [place] [address]- 2888 Feb, [facility] [place] [facility] [address] [facility] [id number] [place] [address]- 8217 Feb, [facility] [place] [facility] [address] [id number] [place] [address] 1889 Jan, [facility] [place] [facility] [address] [id number] [place] [address]- 6241 Jan, [facility] [place] [facility] [address] [id number] [place] [address]- 1662 23 Dec, 2013 [facility] [place] [facility] [address] [id number] [place] [address]- 0779 23 Dec, 2013 [facility] [place] [facility] [address] [id number] [place] [address] 2545 10 Dec, 2013 [facility] [place] [facility] [address] [id number] [place] [address]- 8778 10 Dec, 2013 [facility] [place] [facility] [address] [id number] [place] [address]- 6957 04 Dec, 2013 [facility] [place] [facility] [address] [id number] [place] [address]- 0919 04 Dec, 2013 [facility] [place] [facility] [address] [id number] [place] [address]- 2588 Dec, [facility] [place] [facility] [address] [id number] [place] [address]- 5388 Dec, [facility] [place] [facility] [address] [id number] [place] [address]- 8379 Nov, [facility] [place] [facility] [address] [id number] [place] [address]- 2204 Nov, [facility] [place] [facility] [address] [id number] [place] [address]- 2522 Nov, [facility] [place] [facility] [address] [id number] [place] [address]- 6078 Nov, [facility] [place] [facility] [address] [id number] [place] [address]- 4794 14 Oct, 2013 [facility] [place] [facility] [address] [id number] [place] [address]- 2835 Oct, [facility] [place] [facility] [address] [id number] [place] [address]- 4855 Oct, [facility] [place] [facility] [address] [id number] [place] [address]- 4525 Oct, [facility] [place] [facility] [address] [id number] [place] [address] Oct, [facility] [place] [facility] [address] [id number] [place] [address]- 2885 Oct, [facility] [place] [facility] [address] [id number] [place] [address]- 3466 Oct, [facility] [place] [facility] [address] [id number] [place] [address]- 0252 Oct, [facility] [place] [facility] [address] [id number] [place] [address]- 2559 Sep, [facility] [place] [facility] [address] [id number] [place] [address]- 9526 Sep, [facility] [place] [facility] [address] [id number] [place] [address]- 9236 August, [facility] [place] [facility] [address] [id number] [place] [address]- 1037 August, [facility] [place] [facility] [address] [id number] [place] [address]- 4509 Jul, [facility] [place] [facility] [address] [id number] [place] [address]- 1136 Jul, [facility] [place] [facility] [address] [id number] [place] [address]- 5813 Jul, [facility] [place] [facility] [address] [id number] [place] [address]- 0243 Jul, [facility] [place] [facility] [address] [id number] [place] [address]- 2553 Jul, [facility] [place] [facility] [address] [id number] [place] [address]- 4864 Jul, [facility] [address] [id number] [place] [address]- 3678 Jul, [facility] [place] [facility] [address] [id number] [place] [address]- 9226 Jul, [facility] [place] [facility] [address] [id number] [place] [address]- 1628 Jun, [facility] [place] [facility] [address] [id number] [place] [address]- 6629 Jun, [facility] [place] [facility] [address] [id number] [place] [address]- 5824 Jun, [facility] [place] [facility] [address] [id number] [place] [address]- 3436 Jun, [facility] [place] [facility] [address] [id number] [place] [address]- 8602 May, [facility] [place] [facility] [address] [id number] [place] [address]- 7749 May, [facility] [place] [facility] [address] [id number] [place] [address]- 7847 Apr, [facility] [address] [id number] [place] [address]- 8112 Apr, [facility] [place] [facility] [address] [id number] [place] [address]- 4505 Mar, [facility] [place] [facility] [address] [id number] [place] [address]- 8965 Mar, [facility] [place] [facility] [address] [id number] [place] [address] Mar, [facility] [place] [facility] [address] [id number] [place] [address]- 1846 Mar, [facility] [place] [facility] [address] [id number] [place] [address] Mar, [facility] [place] [facility] [address] [id number] [place] [address]- 9589 18 Mar, 2013 [facility] [place] [facility] [address] [id number] [place] [address]- 3017 Feb, [facility] [place] [facility] [address] [id number] [place] [address]- 6595 Feb, [facility] [place] [facility] [address] [id number] [place] [address]- 2168 Feb, [facility] [place] [facility] [address] [id number] [place] [address]- 0673 Feb, [facility] [place] [facility] [address] [id number] [place] [address]- 3974 Feb, [facility] [place] [facility] [address] [id number] [place] [address]- 1974 Feb, [facility] [place] [facility] [address] [id number] [place] [address]- 7159 Feb, [facility] [place] [facility] [address] [id number] [place] [address]- 8727 12 Feb, 2013 [facility] [place] [facility] [address] [id number] [place] [address]- 1117 15 Jan, 2013 [facility] [place] [facility] [address] [id number] [place] [address]- 8041 15 Jan, 2013 [facility] [place] [facility] [address] [id number] [place] [address]- 1605 14 Jan, 2013 [facility] [place] [facility] [address] [id number] [place] [address]- 4642 14 Jan, 2013 [facility] [place] [facility] [address] [id number] [place] [address]- 6119 18 Dec, 2012 [facility] [place] [facility] [address] [id number] [place] [address]- 8351 13 Dec, 2012 [facility] [place] [facility] [address] [id number] [place] [address]- 6001 Dec, [facility] [address] [id number] [place] [address]- 0036 Nov, [facility] [place] [facility] [address] [id number] [place] [address]- 4761 Nov, [facility] [place] [facility] [address] [id number] [place] [address]- 8205 Oct, [facility] [place] [facility] [address] [id number] [place] [address]- 4727 Oct, [facility] [place] [facility] [address] [id number] [place] [address]- 7895 Oct, [facility] [place] [facility] [address] [id number] [place] [address]- 8696 Sep, [facility] [place] [facility] [address] [id number] [place] [address]- 0790 Sep, [facility] [place] [facility] [address] [id number] [place] [address]- 7251 Sep, [facility] [place] [facility] [address] [id number] [place] [address]- 3104 Sep, [facility] [place] [facility] [address] [id number] [place] [address]- 1050 Sep, [facility] [place] [facility] [address] [id number] [place] [address]- 0862 Sep, [facility] [place] [facility] [address] [id number] [place] [address]- 2327 August, [facility] [place] [facility] [address] [id number] [place] [address] August, [facility] [place] [facility] [address] [id number] [place] [address]- 6091 August, [facility] [place] [facility] [address] [id number] [place] [address]- 0862 August, [facility] [place] [facility] [address] [id number] [place] [address]- 1895 August, [facility] [address] [id number] [place] [address]- 9916 August, [facility] [place] [facility] [address] [id number] [place] [address]- 0896 August, [facility] [address] [id number] [place] [address]- 7407 Jul, [facility] [place] [facility] [address] [id number] [place] [address]- 2331 Jul, [facility] [address] [id number] [place] [address]- 2790 Jun, [facility] [address] [id number] [place] [address]- 0272 Jun, [facility] [address] [id number] [place] [address]- 3904 May, [facility] [address] [id number] [place] [address]- 2080 May, [facility] [address] [id number] [place] [address]- 3771 Apr, [facility] [address] [id number] [place] [address]- 8460 Mar, [facility] [address] [id number] [place] [address]- 8704 Mar, [facility] [place] [facility] [address] [id number] [place] 7459 Mar, [facility] [place] [facility] [address] [id number] [place] [address]- 2946 Mar, [facility] [place] [facility] [address] [id number] [place] [address]- 0346 Mar, [facility] [place] [facility] [address] [id number] [place] [address]- 4199 Mar, [facility] [place] [facility] [address] [id number] [place] [address]- 9279 Feb, [facility] [place] [facility] [address] [id number] [place] [address]- 2127 Feb, [facility] [place] [facility] [address] [facility] [id number] [place] [address]- 7659 Feb, [facility] [place] [facility] [address] [id number] [place] [address]- 7109 Feb, [facility] [place] [facility] [address] [id number] [place] [address]- 4030 Feb, [facility] [place] [facility] [address] [facility] [id number] [place] [address]- 1177 Feb, [facility] [place] [facility] [address] [facility] [id number] [place] [address]- 9899 Feb, [facility] [place] [facility] [address] [id number] [place] [address]- 0299 Feb, [facility] [place] [facility] [address] [facility] [id number] [place] [address]- 5425 Jan, [facility] [place] [facility] [address] [facility] [id number] [place] [address]- 7750 Jan, [facility] [place] [facility] [address] [id number] [place] [address]- 8848 28 Dec, 2011 [facility] [place] [facility] [address] [id number] [place] [address]- 1161 19 Dec, 2011 [facility] [place] [facility] [address] [id number] [place] [address]- 1961 18 Dec, 2011 [facility] [place] [facility] [address] [facility] [id number] [place] [address]- 9880 18 Dec, 2011 [facility] [place] [facility] [address] [facility] [id number] [place] [address]- 0533 04 Dec, 2011 [facility] [place] [facility] [address] [id number] [place] [address]- 2931 Nov, [facility] [place] [facility] [address] [id number] [place] [address]- 1023 Oct, [facility] [place] [facility] [address] [id number] [place] [address]- 5726 Oct, [facility] [place] [facility] [address] [id number] [place] [address]- 2598 Sep, [facility] [place] [facility] [address] [id number] [place] [address]- 3215 Sep, [facility] [place] [facility] [address] [id number] [place] [address]- 2074 Sep, [facility] [place] [facility] [address] [id number] [place] [address]- 8625 Sep, [facility] [place] [facility] [address] [id number] [place] [address]- 4526 Sep, [facility] [place] [facility] [address] [id number] [place] [address]- 9392 Sep, [facility] [place] [facility] [address] [id number] [place] [address]- 5240 Sep, [facility] [place] [facility] [address] [id number] [place] [address]- 5663 Sep, [facility] [place] [facility] [address] [id number] [place] [address]- 9444 August, [facility] [place] [facility] [address] [id number] [place] [address]- 1510 August, [facility] [place] [facility] [address] [id number] [place] [address]- 3704 August, [facility] [place] [facility] [address] [id number] [place] [address]- 1239 Jul, [facility] [place] [facility] [address] [id number] [place] [address]- 9279 Jul, [facility] [place] [facility] [address] [id number] [place] [address]- 8027 Jun, [facility] [place] [facility] [address] [id number] [place] [address]- 3750 Jun, [facility] [place] [facility] [address] [id number] [place] [address]- 7070 Jun, [facility] [place] [facility] [address] [id number] [place] [address]- 0222 Jun, [facility] [address] [id number] [place] [address]- 0685 May, [facility] [place] [facility] [address] [id number] [place] [address]- 3926 May, [facility] [address] [id number] [place] [address]- 7482 Apr, [facility] [address] [id number] [place] [address]- 9020 Apr, [facility] [address] [id number] [place] [address]- 6358 Apr, [facility] [address] [id number] [place] [address]- 9701 Mar, [facility] [place] [facility] [address] [id number] [place] [address]- 8734 Mar, [facility] [place] [facility] [address] [id number] [place] [address]- 7732 Mar, [facility] [place] [facility] [address] [id number] [place] [address]- 2260 Feb, [facility] [place] [facility] [address] [id number] [place] [address]- 0806 Feb, [facility] [place] [facility] [address] [id number] [place] [address]- 7819 Feb, [facility] [place] [facility] [address] [id number] [place] [address]- 5602 09 Feb, 2011 [facility] [address] [id number] [place] [address]- 8714 25 Jan, 2011 [facility] [place] [facility] [address] [id number] [place] [address]- 9544 14 Jan, 2011 [facility] [place] [facility] [address] [facility] [id number] [place] [address]- 3409 12 Jan, 2011 [facility] [place] [facility] [address] [id number] [place] [address]- 6544 16 Dec, 2010 [facility] [place] [facility] [address] [id number] [place] [address], [place] [address]- 7697 Oct, [facility] [place] [facility] [address] [id number] [place] [address]- 1074 24 Mar, 2010 [facility] [place] [facility] [address] [facility] [id number] [place] [address]- 4945 Feb, [facility] [place] [facility] [address] [facility] [id number] [place] [address]- 2249 Feb, [facility] [place] [facility] [address] [facility] [id number] [place] [address]- 6955 16 May, 2009 [facility] [place] [facility] [address] [facility] [id number] [place] [address]- 4318 Apr, [facility] [place] [facility] [address] [facility] [id number] [place] [address]- 8837 29 Mar, 2009 [facility] [place] [facility] [address] [id number] [place] [address]- 0471 30 Jan, 2009 [facility] [place] [facility] [address] [id number] [place] [address]- 6045 15 Oct, 2008 [facility] [place] [facility] [address] [facility] [id number] [place] 1111 16 Jul, 2008 [facility] [place] [facility] [address] [facility] [id number] [place] 2986 04 Mar, 2008 [facility] [place] [facility] [address] [facility] [id number] [place] [address]- 2637 Feb, [facility] [address] [facility] [id number] [place] [address]- 4203 Jan, IMMUNIZATIONS No Known Immunizations SOCIAL HISTORY Never Assessed REASON FOR VISIT Hector NIEVES PLAN OF CARE VITAL SIGNS MEDICATIONS Unknown [...]
--- OUTSIDE RECORDS SUMMARY | 2018-07-05 12:11 | XMS REPORT ---
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 Active 32025045 Problem Type 2 diabetes mellitus with 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 E11.65 Active 529221959 Problem Controlled type 2 diabetes mellitus without complication, without long -term current use of insulin E11.9 Active 472169490 Problem Diabetic polyneuropathy associated with type 2 diabetes mellitus E11.42 Active 93280844 Problem Uncontrolled type 2 diabetes mellitus with 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 E11.65 Active 575708528 Problem correction current use of insulin Z79.4 Active 486723207 Problem Neuropathy G62.9 Active 770615500 Problem Other male erectile dysfunction N52.8 Active 780938729 Problem Constipation K59.00 Active 36676628 Problem Obstructive sleep apnea G47.33 Active 29268038 Problem Uncontrolled type 2 diabetes mellitus without complication, without long-term current use of insulin E11.65 Active 778345265 Problem Fibromyalgia M79.7 Active 099337988 Problem Stress incontinence of urine N39.3 Active 09109283 Problem Arthritis M19.90 Active 5827090 Problem Hypertension, benign I10 Active 27550773 Problem Polyneuropathy G62.9 Active 52691001 ALLERGIES No Information ENCOUNTERS Encounter Location Date Diagnosis [facility] [address] [facility] [id number] [address] Mar, [facility] [id number] [place] [address] 83820- 1326 Mar, [facility] [address], [place] [address] 9598 Mar, [facility] [id number] [address] 9208 Mar, [facility] [address] [address] Mar, Uncontrolled type 2 diabetes mellitus with 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 E11.65 and Diabetic polyneuropathy associated with type 2 diabetes mellitus E11.42 [facility] [address] [place] [address] 750785- 0889 Feb, [facility] [id number] [place] [address] 751200- 2146 Feb, [facility] [id number] [place] [address] 306690- 6751 Feb, [facility] [id number] [place] [address] 95450- 3470 Feb, [facility] [id number] [place] [address] 328923- 6701 Feb, [facility] [id number] [place] [address] 80099- 9961 Feb, Fibromyalgia M79.7 and Uncontrolled type 2 diabetes mellitus without complication, without long-term current use of insulin E11.65 [facility] [id number] [place] [address] 04393- 1378 Jan, [facility] [id number] [place] [address] 61223- 6228 Jan, [facility] [id number] [place] [address] 55367- 6004 Jan, Uncontrolled type 2 diabetes mellitus without complication, without long-term current use of insulin E11.65 [facility] [address] [place] [address] 04053- 6914 Jan, [facility] [id number] [place] [address] 551897- 3828 Dec, Therapeutic drug monitoring Z51.81 and Controlled type 2 diabetes mellitus without complication, without long-term current use of insulin E11.9 [facility] [id number] [place] [address] 42291- 7943 Dec, Renal insufficiency N28.9 [facility] [id number] [place] [address] 29613 2546 Dec, [facility] [id number] [place] [address] 29267 2546 Dec, Dizziness R42 [facility] [address] 87494 2546 Dec, Dizziness R42 and Encounter for immunization Z23 [facility] [address] 06457- 3302 Dec, Therapeutic drug monitoring Z51.81 and Controlled type 2 diabetes mellitus without complication, without long-term current use of insulin E11.9 [facility] [id number] [place] [address] 36234- 6763 Dec, [facility] [address] 83670- 9439 Dec, [facility] [address] 25160 2548 Dec, [facility] [id number] [place] [address] 39079- 1284 Nov, [facility] [id number] [place] [address] 68974- 2258 Nov, Therapeutic drug monitoring Z51.81 [facility] [id number] [place] [address] 81525- 7997 Nov, [facility] [id number] [place] [address] 36022 2545 Nov, Therapeutic drug monitoring Z51.81 ; Fibromyalgia M79.7 and Controlled type 2 diabetes mellitus without complication, without long-term current use of insulin E11.9 [facility] [address] [place] [address] 93940 2544 Nov, Type 2 diabetes mellitus with 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 E11.65 [facility] [address] [address]- 7705 Nov, [facility] [address] [place] [address] 52917- 7947 Nov, [facility] [address], [place] [address]- 7055 Nov, Type 2 diabetes mellitus with 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 E11.65 [facility] [id number] [place] [address] 51584- 5651 Nov, [facility] [address] [place] [address] 79747- 6558 Nov, [facility] [id number] [place] [address] 29924- 5488 Nov, Constipation K59.00 [facility] [address] [address]- 5940 Oct, Diabetes type 2, controlled E11.9 [facility] [address], [place] [address]- 9716 Oct, Type 2 diabetes mellitus with 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 E11.65 ; correction current use of insulin Z79.4 and Neuropathy G62.9 [facility] [address], [place] [address]- 6455 Oct, [facility] [address], [place] [address]- 7337 Oct, [facility] [address], [place] [address]- 7817 Oct, [facility] [address], [place] [address]- 6383 Oct, [facility] [address], [place] [address]- 0435 Oct, [facility] [address], [place] [address]- 2329 Oct, [facility] [id number] [address]- 0460 Oct, [facility] [id number] [place] [address] 02964- 5007 Sep, [facility] [id number] [place] [address] 84515- 3737 Sep, Uncontrolled type 2 diabetes mellitus without complication, without long-term current use of insulin E11.65 [place] [facility] [id number] [place] [address] 78615- 9417 Sep, Hypertension, benign I10 ; Fibromyalgia M79.7 ; Controlled type 2 diabetes mellitus without complication, without long-term current use of insulin E11.9 and Uncontrolled type 2 diabetes mellitus without complication, without long-term current use of insulin E11.65 [place] [id number] [place] [address] 87747- 6909 Sep, [facility] [id number] [place] [address] 05642- 9407 Sep, Uncontrolled type 2 diabetes mellitus without complication, without long-term current use of insulin E11.65 [place] [address] [place] [address] 97249- 6719 Sep, [place] [place] [id number] [place] [address] 75722- 9308 Sep, [facility] [address], [place] [address]- 2781 Sep, Uncontrolled type 2 diabetes mellitus without complication, without long-term current use of insulin E11.65 and Fibromyalgia M79.7 [place] [place] [address], [place] [address]- 0211 August, [place] [id number] [place] [address] 59750- 5737 August, [place] [id number] [address]- 9673 August, [place] [place] [id number] [place] [address] 10529- 2949 August, Fibromyalgia M79.7 [facility] [address] 27698- 9310 Jul, Hypertension, benign I10 [facility] [address] 75567- 6417 Jul, Fibromyalgia M79.7 [facility] [address] 42732- 3464 Jul, [facility] [address] 66012- 2150 Jun, [facility] [address] 42478- 2964 Jun, Hypertension, benign I10 ; Arthritis M19.90 ; 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 and Uncontrolled type 2 diabetes mellitus without complication, without long-term current use of insulin E11.65 [facility] [id number] [place] [address] 76669 -2217 Jun, Acute nasopharyngitis J00 and BMI 50.0-59.9, adult Z68.43 [facility] [address] 45008- 1988 Jun, Fibromyalgia M79.7 [facility] [id number] [place] [address] 31481- 1531 May, [facility] [address] 46399- 6530 May, Fibromyalgia M79.7 [facility] [address] 90269- 9922 Apr, Fibromyalgia M79.7 [facility] [id number] [place] [address] 88501- 4445 Apr, [facility] [address] 53560- 1108 Apr, [facility] [id number] [place] [address] 06683- 1079 Apr, Arthritis M19.90 [facility] [address] 43008 2546 Apr, Arthritis M19.90 [facility] [id number] [place] [address] 10126 2540 Apr, Arthritis M19.90 and Controlled type 2 diabetes mellitus without complication, without long-term current use of insulin E11.9 [facility] [id number] [place] [address] 43376- 3270 Apr, [facility] [address] 97942- 3046 Apr, Fibromyalgia M79.7 [facility] [address] 44597- 8949 Mar, [facility] [id number] [place] [address] 06294- 5402 Mar, [facility] [id number] [place] [address] 10397- 7512 Mar, Fibromyalgia M79.7 [facility] [id number] [place] [address] 42012- 5090 Feb, [facility] [id number] [place] [address] 57245- 5866 Feb, [facility] [id number] [place] [address] 59925- 2547 Feb, [facility] [id number] [place] [address] 27303- 6131 Feb, Fibromyalgia M79.7 [facility] [id number] [place] [address] 61338- 2542 Feb, Diabetes type 2, uncontrolled E11.65 and Encounter for immunization Z23 [facility] [address] 12258- 2711 Jan, [facility] [address] [address]- 8542 Jan, Fibromyalgia M79.7 [facility] [address] [place] [address] 37568- 2446 Dec, [facility] [id number] [place] [address] 30352- 5021 Dec, Fibromyalgia M79.7 [facility] [id number] [place] [address] 89498- 6287 Nov, [facility] [id number] [place] [address] 73381- 1003 Nov, [facility] [id number] [place] [address] 00875- 1343 Nov, 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 and Polyneuropathy G62.9 [facility] [id number] [place] [address] 06137- 7218 Nov, [facility] [address] [place] [address] 19070- 4993 Nov, [facility] [id number] [place] [address] 52894- 4837 Oct, Diabetes type 2, uncontrolled E11.65 [facility] [address] [place] [address] 67367- 1486 Oct, Diabetes type 2, uncontrolled E11.65 ; Polyneuropathy G62.9 and Pain in right wrist M25.531 [facility] [address], [place] [address]- 2881 Oct, [facility] [id number] [place] [address] 50787- 9980 Oct, Pain in left shoulder M25.512 [facility] [id number] [place] [address] 70159- 7865 Sep, [facility] [address], [place] [address]- 3654 Sep, Pain in left shoulder M25.512 [facility] [address], [place] [address]- 7616 Sep, [facility] [address], [place] [address]- 9765 August, Pain in left shoulder M25.512 [facility] [id number] [address]- 1917 Jul, [facility] [address] [place] [address] 36435- 1351 Jul, [facility] [id number] [place] [address] 94245- 6987 Jul, Pain in left shoulder M25.512 [facility] [id number] [place] [address] 02322- 0136 Jun, [facility] [address], [place] [address]- 6725 Jun, [facility] [id number] [place] [address] 81858- 4685 Jun, Diabetes type 2, uncontrolled E11.65 ; Fibromyalgia M79.7 and Arthritis M19.90 [facility] [address], [place] [address]- 1890 Jun, Pain in left shoulder M25.512 [facility] [address], [place] [address]- 2271 May, [facility] [address]- 0107 May, Diabetes type 2, controlled E11.9 [facility] [address] 7356 May, [facility] [id number] [address]- 4569 15 May, 2016 Uncontrolled type 2 diabetes mellitus without complication, without long-term current use of insulin E11.65 [facility] [address] [place] [address] 42278- 3911 15 May, 2016 Pain in left shoulder M25.512 [facility] [address]- 9593 03 May, 2016 Diabetes type 2, controlled E11.9 and Uncontrolled type 2 diabetes mellitus without complication, without long-term current use of insulin E11.65 [facility] [address], [place] [address]- 8788 Apr, [facility] [id number] [place] [address] 83782- 8388 Apr, [facility] [id number] [place] [address] 72331- 2543 Mar, [facility] [id number] [place] [address] 96427- 6639 Mar, [facility] [address] [place] [address] 49670- 8495 Mar, [facility] [address] [place] [address] 14199- 3488 Feb, [facility] [address] [id number] Feb, Dental examination Z01.20 [facility] [address], [place] [address]- 0205 Jan, [facility] [address], [place] [address]- 6181 14 Dec, 2015 [facility] [id number] [place] [address] 747292- 9715 Dec, [facility] [address]- 4328 Dec, [facility] [id number] [place] [address], [place] [address]- 7879 Dec, Diabetes type 2, controlled E11.9 [facility] [address] [facility] [id number] [place] [address]- 5203 Nov, [facility] [address] [facility] [id number] [place] [address]- 8293 Nov, [facility] [address] [facility] [id number] [place] [address]- 8076 Nov, [facility] [address] [facility] [id number] [place] [address]- 5271 Nov, [facility] [address] [facility] [id number] [place] [address]- 5189 Oct, [facility] [address] [facility] [id number] [place] [address]- 3529 Oct, [facility] [address] [address]- 4133 Oct, [facility] [address] [facility] [id number] [address]- 8208 Sep, [facility] [address] [address]- 3670 Sep, Diabetes type 2, controlled E11.9 [facility] [address] [facility] [id number], [place] [address]- 7535 Sep, Diabetes type 2, controlled E11.9 [facility] [address] [facility] [id number] [address]- 4836 August, [facility] [address] [facility] [id number] [address]- 6148 August, [facility] [id number], [place] [address]- 1587 August, Type 2 diabetes mellitus without complication E11.9 and Pain in left shoulder M25.512 [facility] [id number], [place] [address]- 8219 Jul, [facility] [address] [place] [address] 12888- 9335 Jul, Diabetes type 2, controlled E11.9 and Hypertension, benign I10 [facility] [id number] [place] [address] 89293- 4514 Jun, [facility] [id number] [place] [address] 49762- 2856 Jun, [facility] [id number] [place] [address] 32633- 4085 Jun, Diabetes 250.00 [facility] [address] 26141- 3742 Jun, [facility] [id number] [place] [address] 98051- 0907 May, Diabetes type 2, uncontrolled E11.65 [facility] [id number] [place] [address] 27128- 6671 May, [facility] [id number] [place] [address] 34494- 6496 Apr, Type 2 diabetes mellitus without complication E11.9 [facility] [id number] [place] [address] 66846- 1069 Apr, Encounter for immunization Z23 [facility] [id number] [place] [address] 25329- 3996 Apr, [facility] [id number] [place] [address] 29016- 6725 Mar, [facility] [id number] [place] [address] 28076- 7296 Mar, [facility] [id number] [place] [address] 19942- 6396 Mar, [facility] [id number] [place] [address] 81479- 0645 Feb, [place] [id number], [place] [address]- 1904 Jan, [facility] [address] 4768 Jan, [facility] [address] 4322 Jan, [facility] [id number] [place] [address] 820589- 3143 Dec, Diabetes 250.00 and COPD (chronic obstructive pulmonary disease) 496 [facility] [address] [place] [address], [place] [address]- 1516 Dec, [facility] [address], [place] [address]- 5917 Dec, [facility] [address] [place] [address] 01739- 4873 Nov, [facility] [address], [place] [address]- 7413 Oct, Diabetes 250.00 [facility] [address], [place] [address]- 2174 Sep, [facility] [address], [place] [address]- 1620 Sep, [facility] [address], [place] [address]- 9584 Sep, [facility] [address], [place] [address]- 5898 Sep, Diabetes 250.00 [facility] [address] 5668 Sep, [facility] [address]- 5767 Sep, [facility] [address] [address] August, Hypertension, essential, benign 401.1 ; Coronary atherosclerosis of [place] coronary artery 414.01 and Diabetic neuropathy associated with type 2 diabetes mellitus 250.60 [facility] [id number] [address] Jul, [facility] [id number] [address] Jul, [facility] [id number] [place] [address] Jul, [facility] [id number] [place] [address]- [address] Jun, [facility] [id number] [place] [address]- [address] Jun, [facility] [id number] [place] [address]- [address] Jun, [facility] [id number] [place] [address]- [address] Jun, [facility] [id number] [address] Jun, [facility] [id number] [place] [address]- [address] May, [facility] [id number], [place] [address] May, [facility] [facility] [id number] [address] May, [facility] [id number] [address] May, [facility] [id number] [address] [address] May, [facility] [id number], [place] [address] May, [facility] [address] [id number] [address] May, [facility] [place] [facility] [address] [id number] [place] [address] 1573 Apr, [facility] [place] [facility] [address] [id number] [place] [address] 3[address] Apr, [facility] [place] [facility] [address] [facility] [id number] [place] [address]- 0452 Apr, [facility] [place] [facility] [address] [id number] [place] [address]- 6029 Apr, [facility] [place] [facility] [address] [facility] [id number] [place] [address] Mar, [facility] [place] [facility] [address] [facility] [id number] [place] [address]- 6889 Mar, [facility] [place] [facility] [address] [facility] [id number] [place] [address]- 5123 Mar, [facility] [place] [facility] [address] [facility] [id number] [place] [address]- 7618 Mar, [facility] [place] [facility] [address] [facility] [id number] [place] [address]- 0375 Feb, [facility] [place] [facility] [address] [facility] [id number] [place] [address]- 6600 Feb, [facility] [place] [facility] [address] [id number] [place] [address]- 7836 Feb, [facility] [place] [facility] [address] [id number], [place] [address] 60[address] Feb, [facility] [place] [facility] [address] [id number], [place] [address] 7698 Feb, [facility] [place] [facility] [address] [facility] [id number][place] [address] 6727 Feb, [facility] [place] [facility] [address] [facility] [id number], [place] [address] Feb, [facility] [place] [facility] [address] [id number] [place] [address]- 7347 Jan, [facility] [place] [facility] [address] [id number] [place] [address]- 3498 Jan, [facility] [place] [facility] [address] [id number] [place] [address]- 2946 23 Dec, 2013 [facility] [place] [facility] [address] [id number] [place] [address]- 9056 23 Dec, 2013 [facility] [place] [facility] [address] [id number] [place] [address] 2542 10 Dec, 2013 [facility] [place] [facility] [address] [id number] [place] [address]- 5134 10 Dec, 2013 [facility] [place] [facility] [address] [id number] [place] [address]- 1183 04 Dec, 2013 [facility] [place] [facility] [address] [id number] [place] [address]- 4070 04 Dec, 2013 [facility] [place] [facility] [address] [id number] [place] [address]- 1056 Dec, [facility] [place] [facility] [address] [id number] [place] [address]- 5271 Dec, [facility] [place] [facility] [address] [id number] [place] [address]- 8449 Nov, [facility] [place] [facility] [address] [id number] [place] [address]- 3329 Nov, [facility] [place] [facility] [address] [id number] [place] [address]- 4994 Nov, [facility] [place] [facility] [address] [id number] [place] [address]- 2651 Nov, [facility] [place] [facility] [address] [id number] [place] [address]- 4538 14 Oct, 2013 [facility] [place] [facility] [address] [id number] [place] [address]- 3317 Oct, [facility] [place] [facility] [address] [id number] [place] [address]- 5075 Oct, [facility] [place] [facility] [address] [id number] [place] [address]- 6767 Oct, [facility] [place] [facility] [address] [id number] [place] Oct, [facility] [place] [facility] [address] [id number] [place] [address]- 6217 Oct, [facility] [place] [facility] [address] [id number] [place] [address]- 7057 Oct, [facility] [place] [facility] [address] [id number] [place] [address]- 0431 Oct, [facility] [place] [facility] [address] [id number] [place] [address]- 5089 Sep, [facility] [place] [facility] [address] [id number] [place] [address]- 9489 Sep, [facility] [place] [facility] [address] [id number] [place] [address]- 0159 August, [facility] [place] [facility] [address] [id number] [place] [address]- 8182 August, [facility] [place] [facility] [address] [id number] [place] [address]- 0097 Jul, [facility] [place] [facility] [address] [id number] [place] [address]- 8697 Jul, [facility] [place] [facility] [address] [id number] [place] [address]- 5203 Jul, [facility] [place] [facility] [address] [id number] [place] [address]- 3764 Jul, [facility] [place] [facility] [address] [id number] [place] [address]- 8384 Jul, [facility] [place] [facility] [address] [id number] [place] [address]- 0005 Jul, [facility] [address] [id number] [place] [address]- 9169 Jul, [facility] [place] [facility] [address] [id number] [place] [address]- 8114 Jul, [facility] [place] [facility] [address] [id number] [place] [address]- 3099 Jun, [facility] [place] [facility] [address] [id number] [place] [address]- 6673 Jun, [facility] [place] [facility] [address] [id number] [place] [address]- 8825 Jun, [facility] [place] [facility] [address] [id number] [place] [address]- 7324 Jun, [facility] [place] [facility] [address] [id number] [place] [address]- 9898 May, [facility] [place] [facility] [address] [id number] [place] [address]- 7259 May, [facility] [place] [facility] [address] [id number] [place] [address]- 4068 Apr, [facility] [address] [id number] [place] [address]- 7809 Apr, [facility] [place] [facility] [address] [id number] [place] [address]- 5683 Mar, [facility] [place] [facility] [address] [id number] [place] [address]- 5314 Mar, [facility] [place] [facility] [address] [id number] [place] [address] Mar, [facility] [place] [facility] [address] [id number] [place] [address]- 8298 Mar, [facility] [place] [facility] [address] [id number] [place] Mar, [facility] [place] [facility] [address] [id number] [place] [address]- 4683 18 Mar, 2013 [facility] [place] [facility] [address] [id number] [place] [address]- 9516 Feb, [facility] [place] [facility] [address] [id number] [place] [address]- 9168 Feb, [facility] [place] [facility] [address] [id number] [place] [address]- 8169 Feb, [facility] [place] [facility] [address] [id number] [place] [address]- 7907 Feb, [facility] [place] [facility] [address] [id number] [place] [address]- 1497 Feb, [facility] [place] [facility] [address] [id number] [place] [address]- 1330 Feb, [facility] [place] [facility] [address] [id number], [place] [address]- 5568 Feb, [facility] [place] [facility] [address] [id number], [place] [address]- 0[address] 12 Feb, 2013 [facility] [place] [facility] [address] [id number], [place] [address]- 1227 15 Jan, 2013 [facility] [place] [facility] [address] [id number], [place] [address]- 5991 15 Jan, 2013 [facility] [place] [facility] [address] [id number], [place] [address]- 7166 14 Jan, 2013 [facility] [place] [facility] [address] [id number], [place] [address]- 8431 14 Jan, 2013 [facility] [place] [facility] [address] [id number], [place] [address]- 6665 18 Dec, 2012 [facility] [place] [facility] [address] [id number], [place] [address]- 9787 13 Dec, 2012 [facility] [place] [facility] [address] [id number], [place] [address]- 5226 Dec, [facility] [address] [id number] [place] [address]- 2678 Nov, [facility] [place] [facility] [address] [id number] [place] [address]- 2183 Nov, [facility] [place] [facility] [address] [id number] [place] [address]- 8131 Oct, [facility] [place] [facility] [address] [id number] [place] [address]- 7770 Oct, [facility] [place] [facility] [address] [id number] [place] [address]- 6598 Oct, [facility] [place] [facility] [address] [id number] [place] [address]- 5938 Sep, [facility] [place] [facility] [address] [id number] [place] [address]- 2315 Sep, [facility] [place] [facility] [address] [id number] [place] [address]- 7366 Sep, [facility] [place] [facility] [address] [id number] [place] [address]- 3572 Sep, [facility] [place] [facility] [address] [id number] [place] [address]- 8935 Sep, [facility] [place] [facility] [address] [id number] [place] [address]- 3440 Sep, [facility] [place] [facility] [address] [id number] [place] [address]- 4591 August, [facility] [place] [facility] [address] [id number] [place] 9129 August, [facility] [place] [facility] [address] [id number] [place] [address]- 1876 August, [facility] [place] [facility] [address] [id number] [place] [address]- 2657 August, [facility] [place] [facility] [address] [id number] [place] [address]- 2759 August, [facility] [address] [id number] [place] [address]- 6340 August, [facility] [place] [facility] [address] [id number] [place] [address]- 3796 August, [facility] [address] [id number] [place] [address]- 9550 Jul, [facility] [place] [facility] [address] [id number] [place] [address]- 9843 Jul, [facility] [address] [id number] [place] [address]- 4475 Jun, [facility] [address] [id number] [place] [address]- 0562 Jun, [facility] [address] [id number] [place] [address]- 7586 May, [facility] [address] [id number] [place] [address]- 3932 May, [facility] [address] [id number] [place] [address]- 9712 Apr, [facility] [address] [id number] [place] [address]- 1392 Mar, [facility] [address] [id number] [place] [address]- 5943 Mar, [facility] [place] [facility] [address] [id number] [place] [address] Mar, [facility] [place] [facility] [address] [id number] [place] [address]- 0858 Mar, [facility] [place] [facility] [address] [id number] [place] [address]- 0216 Mar, [facility] [place] [facility] [address] [id number] [place] [address]- 6414 Mar, [facility] [place] [facility] [address] [id number] [place] [address]- 1480 Feb, [facility] [place] [facility] [address] [id number], [place] [address]- 8570 Feb, [facility] [place] [facility] [address] [facility] [id number] [place] [address]- 7626 Feb, [facility] [place] [facility] [address] [id number], [place] [address]- 8076 Feb, [facility] [place] [facility] [address] [id number] [place] [address]- 2007 Feb, [facility] [place] [facility] [address] [facility] [id number], [place] [address]- 9593 Feb, [facility] [place] [facility] [address] [facility] [id number] [place] [address]- 7573 Feb, [facility] [place] [facility] [address] [id number], [place] [address]- 7922 Feb, [facility] [place] [facility] [address] [facility] [id number], [place] [address]- 1292 Jan, [facility] [place] [facility] [address] [facility] [id number], [place] [address]- 2576 Jan, [facility] [place] [facility] [address] [id number], [place] [address]- 1059 28 Dec, 2011 [facility] [place] [facility] [address] [id number], [place] [address]- 2857 19 Dec, 2011 [facility] [place] [facility] [address] [id number], [place] [address]- 9565 18 Dec, 2011 [facility] [place] [facility] [address] [facility] [id number], [place] [address]- 2392 18 Dec, 2011 [facility] [place] [facility] [address] [facility] [id number], [place] [address]- 2567 04 Dec, 2011 [facility] [place] [facility] [address] [id number] [place] [address]- 4059 Nov, [facility] [place] [facility] [address] [id number] [place] [address]- 4805 Oct, [facility] [place] [facility] [address] [id number] [place] [address]- 7366 Oct, [facility] [place] [facility] [address] [id number] [place] [address]- 7882 Sep, [facility] [place] [facility] [address] [id number] [place] [address]- 0731 Sep, [facility] [place] [facility] [address] [id number] [place] [address]- 9566 Sep, [facility] [place] [facility] [address] [id number] [place] [address]- 2226 Sep, [facility] [place] [facility] [address] [id number] [place] [address]- 0916 Sep, [facility] [place] [facility] [address] [id number] [place] [address]- 9900 Sep, [facility] [place] [facility] [address] [id number] [place] [address]- 0043 Sep, [facility] [place] [facility] [address] [id number] [place] [address]- 5537 Sep, [facility] [place] [facility] [address] [id number] [place] [address]- 6058 August, [facility] [place] [facility] [address] [id number] [place] [address]- 9182 August, [facility] [place] [facility] [address] [id number] [place] [address]- 1293 August, [facility] [place] [facility] [address] [id number] [place] [address]- 1084 Jul, [facility] [place] [facility] [address] [id number] [place] [address]- 0202 Jul, [facility] [place] [facility] [address] [id number] [place] [address]- 5062 Jun, [facility] [place] [facility] [address] [id number] [place] [address]- 9481 Jun, [facility] [place] [facility] [address] [id number] [place] [address]- 0868 Jun, [facility] [place] [facility] [address] [id number] [place] [address]- 3891 Jun, [facility] [address] [id number] [place] [address]- 4150 May, [facility] [place] [facility] [address] [id number] [place] [address]- 0906 May, [facility] [address] [id number] [place] [address]- 5296 Apr, [facility] [address] [id number] [place] [address]- 0580 Apr, [facility] [address] [id number] [place] [address]- 0365 Apr, [facility] [address] [id number] [place] [address]- 9930 Mar, [facility] [place] [facility] [address] [id number] [place] [address]- 4455 Mar, [facility] [place] [facility] [address] [id number], [place] [address]- 5585 Mar, [facility] [place] [facility] [address] [id number] [place] [address]- 4361 Feb, [facility] [place] [facility] [address] [id number] [place] [address]- 5796 Feb, [facility] [place] [facility] [address] [id number], [place] [address]- 5331 Feb, [facility] [place] [facility] [address] [id number], [place] [address]- 3304 09 Feb, 2011 [facility] [address] [id number] [place] [address]- 8082 25 Jan, 2011 [facility] [place] [facility] [address] [id number] [place] [address]- 0064 14 Jan, 2011 [facility] [place] [facility] [address] [facility] [id number] [place] [address]- 6057 12 Jan, 2011 [facility] [place] [facility] [address] [id number] [place] [address]- 2150 16 Dec, 2010 [facility] [place] [facility] [id number] [place] [address], [place] [address]- 9295 Oct, [facility] [place] [facility] [address] [id number] [place] [address]- 9132 24 Mar, 2010 [facility] [place] [facility] [address] [facility] [id number], [place] [address]- 4765 Feb, [facility] [place] [facility] [address] [facility] [id number] [place] [address]- 7468 Feb, [facility] [place] [facility] [address] [facility] [id number], [place] [address]- 8492 16 May, 2009 [facility] [place] [facility] [address] [facility] [id number], [place] [address]- 3099 Apr, [facility] [place] [facility] [address] [facility] [id number], [place] [address]- 5351 29 Mar, 2009 [facility] [place] [facility] [address] [id number], [place] [address]- 2019 30 Jan, 2009 [facility] [place] [facility] [address] [id number], [place] [address]- 3458 15 Oct, 2008 [facility] [place] [facility] [address] [facility] [id number][place]99[place] 1134 16 Jul, 2008 [facility] [place] [facility] [address] [facility] [id number][place] 0784 04 Mar, 2008 [facility] [place] [facility] [address] [facility] [id number] [place] [address]- 8786 Feb, [facility] [address] [facility] [id number] [place] [address]- 2003 Jan, IMMUNIZATIONS No Known Immunizations SOCIAL HISTORY Never Assessed REASON FOR VISIT insulin start f/u PLAN OF CARE VITAL SIGNS MEDICATIONS Unknown [...]
--- OUTSIDE RECORDS SUMMARY | 2018-07-05 12:12 | XMS REPORT ---
Author Author KATHYA FISCHER Organization [facility] [place] Address [address] [place] [address] Care Team Providers Care Od Grinder Operator Name Role Phone KATHYA FISCHER Unavailable PROBLEMS Type Condition ICD9-CM Code FHM84-QG Code Onset Dates Condition Status SNOMED Code Problem Arthritis M19.90 Active 9541365 Problem 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 Active 16712412 Problem Polyneuropathy G62.9 Active 34120226 Problem Other male erectile dysfunction N52.8 Active 785577372 Problem Constipation K59.00 Active 68769778 Problem Type 2 diabetes mellitus with 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 E11.65 Active 119254550 Problem Controlled type 2 diabetes mellitus without complication, without long -term current use of insulin E11.9 Active 822161514 Problem shelter current use of insulin Z79.4 Active 425322056 Problem Neuropathy G62.9 Active 649876233 Problem Obstructive sleep apnea G47.33 Active 93137076 Problem Hypertension, benign I10 Active 07684554 Problem Uncontrolled type 2 diabetes mellitus without complication, without long-term current use of insulin E11.65 Active 109691981 Problem Stress incontinence of urine N39.3 Active 05798113 Problem Fibromyalgia M79.7 Active 704964304 ALLERGIES No Information ENCOUNTERS Encounter Location Date Diagnosis [facility] [place] [id number] [place] [address] 61358- 0330 Mar, [facility] [place] [id number] [place] [address] 66648- 0323 Feb, [facility] [place] [id number] [place] [address] 18740- 3393 Feb, [facility] [place] [id number] [place] [address] 05289- 6647 Feb, [facility] [place] [id number] [place] [address] 16478- 0452 Feb, [place] [id number] [place] [address] 42283- 6643 Feb, [place] [address] 94978- 0203 Feb, Fibromyalgia M79.7 and Uncontrolled type 2 diabetes mellitus without complication, without long-term current use of insulin E11.65 [place] [id number] [place] [address] 38315- 2116 Jan, [place] [id number] [place] [address] 07546- 1982 Jan, [place] [address] 68835- 2737 Jan, Uncontrolled type 2 diabetes mellitus without complication, without long-term current use of insulin E11.65 [place] [address] 77581- 0483 Jan, [place] [address] 18291- 7486 Dec, Therapeutic drug monitoring Z51.81 and Controlled type 2 diabetes mellitus without complication, without long-term current use of insulin E11.9 [place] [id number] [place] [address] 72330- 9783 Dec, Renal insufficiency N28.9 [place] [id number] [place] [address] 13148 2546 Dec, [place] [id number] [place] [address] 46060 2540 Dec, Dizziness R42 [place] [address] 87458 2548 Dec, Dizziness R42 and Encounter for immunization Z23 [place] [id number] [place] [address] 55067- 6226 Dec, Therapeutic drug monitoring Z51.81 and Controlled type 2 diabetes mellitus without complication, without long-term current use of insulin E11.9 [facility] [place] [address] [facility] [id number] [address] 6346 Dec, [facility] [place] [id number] [place] [address] 31279- 6796 Dec, [facility] [place] [address] [facility] [id number] [address]- 3276 Dec, [facility] [place] [id number] [place] [address] 57383 2546 Nov, [facility] [place] [id number] [place] [address] 39307- 2526 Nov, Therapeutic drug monitoring Z51.81 [facility] [place] [id number] [place] [address] 50017- 9485 Nov, [facility] [place] [id number] [place] [address] 84576- 7139 Nov, Therapeutic drug monitoring Z51.81 ; Fibromyalgia M79.7 and Controlled type 2 diabetes mellitus without complication, without long-term current use of insulin E11.9 [facility] [place] [address] [address]- 6111 Nov, Type 2 diabetes mellitus with 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 E11.65 [facility] [place] [address] [address]- 3183 Nov, [facility] [place] [address] [address]- 2186 Nov, [facility] [place] [address] [address]- 2549 Nov, Type 2 diabetes mellitus with 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 E11.65 [facility] [place] [address] [address] 2546 Nov, [facility] [place] [address] [facility] [id number], [place] [address] 2546 Nov, [facility] [place] [id number] [place] [address] 98359- 3732 Nov, Constipation K59.00 [facility] [place] [address] [address]- 9221 Oct, Diabetes type 2, controlled E11.9 [facility] [place] [id number] [place] [address] 21008- 7903 Oct, Type 2 diabetes mellitus with 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 E11.65 ; shelter current use of insulin Z79.4 and Neuropathy G62.9 [facility] [place] [address] [address]- 1096 Oct, [facility] [place] [id number] [place] [address] 99678- 8891 Oct, [facility] [place] [id number] [place] [address] 54735- 9632 Oct, [facility] [place] [id number] [place] [address] 19059- 6064 Oct, [facility] [place] [id number] [place] [address] 72340- 6241 Oct, [facility] [place] [id number] [address]- 4469 Oct, [facility] [place] [address], [place] [address]- 6379 Oct, [facility] [place] [address] [address]- 3509 Sep, [facility] [place] [address] [address]- 1128 Sep, Uncontrolled type 2 diabetes mellitus without complication, without long-term current use of insulin E11.65 [facility] [place] [address] [address]- 5935 Sep, Hypertension, benign I10 ; Fibromyalgia M79.7 ; Controlled type 2 diabetes mellitus without complication, without long-term current use of insulin E11.9 and Uncontrolled type 2 diabetes mellitus without complication, without long-term current use of insulin E11.65 [facility] [place] [id number] [place] [address] 57898- 4742 Sep, [facility] [place] [id number] [place] [address] 77122 2546 Sep, Uncontrolled type 2 diabetes mellitus without complication, without long-term current use of insulin E11.65 [facility] [place] [id number] [place] [address] 04275 2546 Sep, [facility] [place] [id number] [place] [address] 71462 2546 Sep, [facility] [place] [id number] [place] [address] 80166- 4545 Sep, Uncontrolled type 2 diabetes mellitus without complication, without long-term current use of insulin E11.65 and Fibromyalgia M79.7 [facility] [place] [id number] [place] [address] 54801- 6196 August, [facility] [place] [id number] [place] [address] 05528 2546 August, [facility] [place] [id number] [place] [address] 21174- 5496 August, [facility] [place] [id number] [place] [address] 58856 2546 August, Fibromyalgia M79.7 [facility] [place] [id number] [place] [address] 70363 2546 Jul, Hypertension, benign I10 [facility] [place] [id number] [place] [address] 87745 2546 Jul, Fibromyalgia M79.7 [facility] [place] [id number] [place] [address] 55217 2546 Jul, [facility] [place] [id number] [place] [address] 24808 2546 Jun, [facility] [place] [id number] [place] [address] 81624- 8557 Jun, Hypertension, benign I10 ; Arthritis M19.90 ; shelter current use 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 Z79.891 and Uncontrolled type 2 diabetes mellitus without complication, without long-term current use of insulin E11.65 [facility] [id number] [place] [address] 96985 -2285 06 Jun, 2017 Acute nasopharyngitis J00 and BMI 50.0-59.9, adult Z68.43 [facility] [place] [id number] [place] [address] 05424- 4344 Jun, Fibromyalgia M79.7 [facility] [place] [address] 70823- 6868 May, [facility] [place] [address] 55470- 5895 02 May, 2017 Fibromyalgia M79.7 [facility] [place] [address] 68523- 6791 Apr, Fibromyalgia M79.7 [facility] [place] [id number] [place] [address] 90435- 4790 Apr, [facility] [place] [id number] [place] [address] 90031- 9487 Apr, [facility] [place] [id number] [place] [address] 32092- 4768 Apr, Arthritis M19.90 [facility] [place] [address] 34376- 0282 Apr, Arthritis M19.90 [facility] [place] [id number] [place] [address] 11874- 5694 Apr, Arthritis M19.90 and Controlled type 2 diabetes mellitus without complication, without long-term current use of insulin E11.9 [facility] [place] [id number] [place] [address] 73728- 0891 Apr, [facility] [place] [address] 98466- 0990 Apr, Fibromyalgia M79.7 [facility] [place] [id number] [place] [address] 54459- 1918 Mar, [facility] [place] [id number] [place] [address] 12492- 4890 Mar, [facility] [place] [id number] [place] [address] 98187- 3660 Mar, Fibromyalgia M79.7 [facility] [place] [id number] [place] [address] 19532- 7090 Feb, [facility] [place] [address] 41400- 9110 Feb, [facility] [place] [id number] [place] [address] 80527- 0622 Feb, [facility] [place] [address] 33135- 9745 Feb, Fibromyalgia M79.7 [facility] [place] [id number] [place] [address] 83269- 8002 Feb, Diabetes type 2, uncontrolled E11.65 and Encounter for immunization Z23 [facility] [place] [id number] [place] [address] 72930- 6396 Jan, [facility] [place] [id number] [place] [address] 79411- 4326 Jan, Fibromyalgia M79.7 [facility] [place] [id number] [place] [address] 80226- 7555 Dec, [facility] [place] [id number] [place] [address] 99633- 7787 Dec, Fibromyalgia M79.7 [facility] [place] [id number] [place] [address] 80561- 8673 Nov, [facility] [place] [id number] [place] [address] 09538- 1836 Nov, [facility] [place] [address] [address]- 0023 Nov, 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 and Polyneuropathy G62.9 [facility] [place] [id number] [place] [address] 63023- 2511 Nov, [facility] [place] [id number] [place] [address] 72012- 5293 Nov, [facility] [place] [id number] [place] [address] 51146- 9500 Oct, Diabetes type 2, uncontrolled E11.65 [facility] [place] [id number] [place] [address] 64826- 7591 Oct, Diabetes type 2, uncontrolled E11.65 ; Polyneuropathy G62.9 and Pain in right wrist M25.531 [facility] [place] [id number] [place] [address] 55698- 8168 Oct, [facility] [place] [id number] [place] [address] 31714- 8582 Oct, Pain in left shoulder M25.512 [facility] [place] [id number] [place] [address] 80705- 4853 Sep, [facility] [place] [id number] [place] [address] 51861- 6232 Sep, Pain in left shoulder M25.512 [facility] [place] [id number] [place] [address] 31089- 6701 Sep, [facility] [place] [id number] [place] [address] 21335- 5075 August, Pain in left shoulder M25.512 [facility] [place] [id number] [place] [address] 94728- 0405 Jul, [facility] [place] [id number] [address]- 6552 Jul, [facility] [place] [id number] [address]- 3698 Jul, Pain in left shoulder M25.512 [facility] [place] [id number] [place] [address] 05835- 4628 Jun, [facility] [place] [id number] [address]- 7184 17 Jun, 2016 [facility] [place] [id number] [place] [address] 26025- 8033 Jun, Diabetes type 2, uncontrolled E11.65 ; Fibromyalgia M79.7 and Arthritis M19.90 [facility] [place] [id number] [place] [address] 96047- 5303 Jun, Pain in left shoulder M25.512 [facility] [place] [id number] [place] [address] 76962- 9236 May, [facility] [place] [id number] [place] [address] 99777- 5620 May, Diabetes type 2, controlled E11.9 [facility] [place] [address], [place] [address]- 2711 17 May, 2016 [facility] [place] [address] [place] [address] 15100- 4611 May, Uncontrolled type 2 diabetes mellitus without complication, without long-term current use of insulin E11.65 [facility] [place] [address], [place] [address]- 0682 May, Pain in left shoulder M25.512 [facility] [place] [address], [place] [address]- 3051 03 May, 2016 Diabetes type 2, controlled E11.9 and Uncontrolled type 2 diabetes mellitus without complication, without long-term current use of insulin E11.65 [facility] [place] [address], [place] [address]- 9574 Apr, [facility] [place] [id number] [place] [address] 31636- 8687 Apr, [facility] [place] [address] [id number] [place] [address]- 6799 Mar, [facility] [address] [id number] [place] [address]- 5159 Mar, [facility] [address] [id number] [place] [address]- 8463 Mar, [facility] [address] [id number] [place] [address]- 1716 Feb, [facility] [address] [id number] [place] [id number] Feb, Dental examination Z01.20 [facility] [place] [address] [id number] [place] [address]- 8661 Jan, [facility] [place] [address] [id number] [place] [address]- 2442 Dec, [facility] [address] [id number] [place] [address]- 4402 Dec, [facility] [id number] [place] [address], [place] [address]- 3722 Dec, [facility] [place] [address] [facility] [id number] [place] [address]- 2643 Dec, Diabetes type 2, controlled E11.9 [facility] [place] [address] [id number] [place] [address]- 0310 Nov, [facility] [address] [id number] [address]- 2548 Nov, [facility] [address] [id number] [place] [address]- 5643 Nov, [facility] [address] [id number] [place] [address]- 7385 Nov, [facility] [address] [id number] [address]- 5991 Oct, [facility] [place] [address] [facility] [id number] [place] [address]- 0679 Oct, [facility] [place] [address] [facility] [id number] [place] [address] Oct, [facility] [place], [facility] [address] [id number] [place] [address] Sep, [facility] [place], [facility] [id number] [place] [address], [place] [address] Sep, Diabetes type 2, controlled E11.9 [facility] [place], [facility] [address] [id number] [place] [address] Sep, Diabetes type 2, controlled E11.9 [facility] [place], [facility] [id number] [place] [address] August, [facility] [place], [facility] [id number] [place] [address] August, [facility] [place], [facility] [id number] [place] [address] August, Type 2 diabetes mellitus without complication E11.9 and Pain in left shoulder M25.512 [facility] [place], [facility] [id number] [place] [address] Jul, [facility] [place], [facility] [id number] [place] [address] Jul, Diabetes type 2, controlled E11.9 and Hypertension, benign I10 [facility] [place], [facility] [id number] [place] [address] Jun, [facility] [place], [facility] [id number] [place] [address] Jun, [facility] [place], [facility] [id number] [place] [address] Jun, Diabetes 250.00 [facility] [place] [address], [place] [address] Jun, [facility] [place] [id number] [place] [address] 50733- 6330 May, Diabetes type 2, uncontrolled E11.65 [facility] [place] [id number] [place] [address] 53433- 8167 May, [facility] [place] [id number] [place] [address] 01947- 3811 Apr, Type 2 diabetes mellitus without complication E11.9 [facility] [place] [id number] [place] [address] 67711- 5657 Apr, Encounter for immunization Z23 [facility] [place] [address] [address]- [address] Apr, [facility] [place] [id number] [place] [address] 17303- 5517 Mar, [facility] [place] [id number] [place] [address] 98071- 0613 Mar, [facility] [place] [id number] [place] [address] 97281- 5649 Mar, [facility] [place] [id number] [place] [address] 30510- 3231 Feb, [facility] [place] [id number] [place] [address] 95677- 7736 Jan, [facility] [place] [id number] [place] [address] 55699- 1799 Jan, [facility] [place] [id number] [place] [address] 43413- 0203 Jan, [facility] [place] [id number] [place] [address] 97934- 0482 Dec, Diabetes 250.00 and COPD (chronic obstructive pulmonary disease) 496 [facility] [place] [id number] [place] [address] 82849- 7407 Dec, [facility] [place] [id number], [place] [address] 3715 Dec, [facility] [place] [address], [place] [address]- 4128 Nov, [facility] [place] [id number], [place] [address]- 3544 Oct, Diabetes 250.00 [facility] [place] [id number] [place] [address] 349213- 7229 Sep, [facility] [place] [id number] [place] [address] 05510- 7444 Sep, [facility] [place] [id number] [place] [address] 741598- 6815 Sep, [facility] [place] [id number] [place] [address] 97598- 1985 Sep, Diabetes 250.00 [facility] [place] [id number] [place] [address] 57554- 7367 Sep, [facility] [place] [id number] [place] [address] 67576- 2375 Sep, [facility] [place] [id number] [place] [address] 185074- 0076 August, Hypertension, essential, benign 401.1 ; Coronary atherosclerosis of [place] coronary artery 414.01 and Diabetic neuropathy associated with type 2 diabetes mellitus 250.60 [facility] [place] [address], [place] [address]- 8046 Jul, [facility] [place] [address], [place] [address]- 7047 Jul, [facility] [place] [id number] [place] [address] 06899- 7874 Jul, [facility] [place] [address], [place] [address]- 2363 Jun, [facility] [place] [id number] [place] [address] 849112- 6135 Jun, [facility] [place] [facility] [address] [id number] [place] [address]- 8282 Jun, [facility] [place] [facility] [address] [id number] [place] [address]- 9375 Jun, [facility] [place] [facility] [address] [id number] [place] [address]- 2338 Jun, [facility] [place] [facility] [address] [id number] [place] [address]- 9963 May, [facility] [place] [facility] [address] [id number] [place] [address]- 3825 May, [facility] [place] [facility] [address] [id number] [place] [address]- 2336 May, [facility] [place] [facility] [address] [facility] [id number] [place] [address]- 0573 May, [facility] [place] [facility] [address] [id number] [place] [address]- 7822 May, [facility] [place] [facility] [address] [id number] [place] [address]- 2306 May, [facility] [place] [facility] [address] [id number] [place] [address]- 7183 May, [facility] [place] [facility] [address] [id number] [place] [address]- 9946 Apr, [facility] [place] [facility] [address] [id number] [place] [address]- 1123 Apr, [facility] [place] [facility] [address] [id number] [place] [address]- 6562 Apr, [facility] [place] [facility] [address] [id number] [place] [address]- 5754 Apr, [facility] [place] [facility] [address] [facility] [id number] [place] [address]- 8518 Mar, [facility] [place] [facility] [address] [id number] [place] [address]- 9233 Mar, [facility] [place] [facility] [address] [id number] [place] [address]- 3277 Mar, [facility] [place] [facility] [address] [id number] [place] [address]- 2111 Mar, [facility] [place] [facility] [address] [id number] [place] [address]- 5363 Feb, [facility] [place] [facility] [address] [id number] [place] [address]- 0557 Feb, [facility] [place] [facility] [address] [id number] [place] [address]- 7666 Feb, [facility] [place] [facility] [address] [id number] [place] [address]- 4019 Feb, [facility] [place] [facility] [address] [id number] [place] [address]- 6242 Feb, [facility] [place] [facility] [address] [id number] [place] [address]- 7343 Feb, [facility] [place] [facility] [address] [id number] [place] [address]- 8920 Feb, [facility] [place] [facility] [address] [facility] [id number] [place] [address]- 0523 Jan, [facility] [place] [facility] [address] [id number] [place] [address]- 3503 Jan, [facility] [place] [facility] [address] [id number] [place] [address]- 5275 Dec, [facility] [place] [facility] [address] [id number] [place] [address]- 8270 Dec, [facility] [place] [facility] [address] [id number] [place] [address]- 6517 Dec, [facility] [place] [facility] [address] [id number] [place] [address]- 4485 Dec, [facility] [place] [facility] [address] [id number] [place] [address]- 2110 04 Dec, 2013 [facility] [place] [facility] [address] [id number] [place] [address]- 5489 Dec, [facility] [place] [facility] [address] [id number] [place] [address]- 7503 Dec, [facility] [place] [facility] [address] [id number] [place] [address]- 7974 Dec, [facility] [place] [facility] [address] [id number] [place] [address]- 8155 Nov, [facility] [place] [facility] [address] [id number] [place] [address]- 6170 Nov, [facility] [place] [facility] [address] [id number] [place] [address]- 0393 Nov, [facility] [place] [facility] [address] [id number] [place] [address]- 4159 Nov, [facility] [place] [facility] [address] [id number] [place] [address]- 2744 Oct, [facility] [place] [facility] [address] [id number] [place] [address]- 2153 Oct, [facility] [place] [facility] [address] [id number] [place] [address]- 5689 Oct, [facility] [place] [facility] [address] [id number] [place] [address]- 9695 Oct, [facility] [place] [facility] [address] [id number] [place] [address]- 5673 Oct, [facility] [place] [facility] [address] [id number] [place] [address]- 8820 Oct, [facility] [place] [facility] [address] [id number] [place] [address]- 3715 Oct, [facility] [place] [facility] [address] [id number] [place] [address]- 5692 Oct, [facility] [place] [facility] [address] [id number] [place] [address]- 6262 Sep, [facility] [place] [facility] [address] [id number] [place] [address]- 2779 Sep, [facility] [place] [facility] [address] [id number] [place] [address]- 8788 August, [facility] [place] [facility] [address] [id number] [place] [address]- 4845 August, [facility] [place] [facility] [address] [id number] [place] [address]- 5938 Jul, [facility] [place] [facility] [address] [id number] [place] [address]- 6350 Jul, [facility] [place] [facility] [address] [id number] [place] [address]- 2938 Jul, [facility] [place] [facility] [address] [id number] [place] [address]- 0917 Jul, [facility] [place] [facility] [address] [id number] [place] [address]- 6621 Jul, [facility] [place] [facility] [address] [id number] [place] [address]- 5611 Jul, [facility] [place] [facility] [address] [id number] [place] [address]- 2233 Jul, [facility] [place] [facility] [address] [id number] [place] [address]- 3606 Jul, [facility] [place] [facility] [address] [id number] [place] [address]- 2757 Jun, [facility] [place] [facility] [address] [id number] [place] [address]- 0849 Jun, [facility] [place] [facility] [address] [id number] [place] [address]- 4938 Jun, [facility] [place] [facility] [address] [id number] [place] [address]- 6426 Jun, [facility] [place] [facility] [address] [id number] [place] [address]- 5756 May, [facility] [place] [facility] [address] [id number] [place] 3544 May, [facility] [place] [facility] [address] [id number] [place] [address]- 2953 Apr, [facility] [place] [facility] [address] [id number] [place] [address]- 3670 Apr, [facility] [place] [facility] [address] [id number] [place] [address]- 6302 Mar, [facility] [place] [facility] [address] [id number] [place] [address]- 1654 Mar, [facility] [place] [facility] [address] [id number] [place] [address]- 2620 Mar, [facility] [place] [facility] [address] [id number] [place] [address]- 6359 Mar, [facility] [place] [facility] [address] [id number] [place] [address]- 1808 Mar, [facility] [place] [facility] [address] [id number] [place] [address]- 2501 Mar, [facility] [place] [facility] [address] [id number] [place] [address]- 1912 Feb, [facility] [place] [facility] [address] [id number] [place] [address]- 0564 Feb, [facility] [place] [facility] [address] [id number] [place] [address]- 2843 Feb, [facility] [place] [facility] [address] [id number] [place] 9399 Feb, [facility] [place] [facility] [address] [id number] [place] [address]- 4784 Feb, [facility] [place] [facility] [address] [id number] [place] [address]- 3777 18 Feb, 2013 [facility] [place] [facility] [address] [id number] [place] [address]- 0713 Feb, [facility] [place] [facility] [address] [id number] [place] [address]- 6371 Feb, [facility] [place] [facility] [address] [id number] [place] [address]- 4830 15 Jan, 2013 [facility] [place] [facility] [address] [id number] [place] [address]- 0370 15 Jan, 2013 [facility] [place] [facility] [address] [id number] [place] [address]- 6432 14 Jan, 2013 [facility] [place] [facility] [address] [id number] [place] [address]- 5421 14 Jan, 2013 [facility] [place] [facility] [address] [id number], [place] [address]- 5148 18 Dec, 2012 [facility] [place] [facility] [address] [id number] [place] [address]- 7111 Dec, [facility] [place] [facility] [address] [id number] [place] [address]- 1632 2012 [facility] [place] [facility] [address] [id number], [place] [address]- 9550 Nov, [facility] [place] [facility] [address] [id number], [place] [address]- 3883 Nov, [facility] [place] [facility] [address] [id number] [place] [address]- 5181 Oct, [facility] [place] [facility] [address] [id number], [place] [address]- 0449 Oct, [facility] [place] [facility] [address] [id number] [place] [address]- 2546 Oct, [facility] [place] [facility] [address] [id number] [place] [address]- 4999 28 Sep, 2012 [facility] [address] [id number] [place] [address]- 5309 Sep, [facility] [address] [id number] [place] [address]- 8661 Sep, [facility] [address] [id number] [place] [address]- 6955 Sep, [facility] [address] [id number] [place] [address]- 5412 Sep, [facility] [address] [id number] [place] [address]- 2764 Sep, [facility] [address] [id number] [place] [address]- 4747 August, [facility] [address] [id number] [place] [address]- 0511 August, [facility] [address] [id number] [place] [address]- 0280 August, [facility] [address] [id number] [place] [address]- 9768 August, [facility] [address] [id number] [place] [address]- 4634 August, [facility] [address] [id number] [place] [address]- 8722 August, [facility] [address] [id number] [place] [address]- 9303 August, [facility] [place] [facility] [address] [id number] [place] [address]- 2658 Jul, [facility] [place] [facility] [address] [id number] [place] [address]- 1016 Jul, [facility] [address] [id number] [place] [address]- 9547 Jun, [facility] [place] [facility] [address] [id number] [place] [address]- 3869 Jun, [facility] [place] [facility] [address] [id number] [place] [address]- 1771 May, [facility] [place] [facility] [address] [id number] [place] [address]- 5465 May, [facility] [place] [facility] [address] [id number] [place] [address]- 0135 Apr, [facility] [place] [facility] [address] [id number] [place] [address]- 2786 Mar, [facility] [place] [facility] [address] [id number] [place] [address]- 2586 Mar, [facility] [place] [facility] [address] [id number] [place] [address]- 5770 Mar, [facility] [place] [facility] [address] [id number] [place] [address]- 2317 Mar, [facility] [place] [facility] [address] [facility] [id number] [place] [address]- 3840 Mar, [facility] [place] [facility] [address] [facility] [id number] [place] [address]- 5548 Mar, [facility] [place] [facility] [address] [facility] [id number] [place] [address]- 8266 Feb, [facility] [place] [facility] [address] [id number], [place] [address]- 0347 Feb, [facility] [place] [facility] [address] [id number] [place] [address]- 6071 Feb, [facility] [place] [facility] [address] [id number] [place] [address]- 8584 Feb, [facility] [place] [facility] [address] [facility] [id number], [place] [address]- 9342 Feb, [facility] [place] [facility] [address] [id number], [place] [address]- 3539 Feb, [facility] [place] [facility] [address] [id number] [place] [address]- 9539 Feb, [facility] [place] [facility] [address] [id number] [place] [address]- 0424 Feb, [facility] [place] [facility] [address] [facility] [id number] [place] [address]- 3841 Jan, [facility] [place] [facility] [address] [id number] [place] [address]- 8534 Jan, [facility] [place] [facility] [address] [id number] [place] [address]- 8539 28 Dec, 2011 [facility] [place] [facility] [address] [id number] [place] [address]- 3803 Dec, [facility] [place] [facility] [id number] [place] [address]- 4326 Dec, [facility] [place] [facility] [address] [facility] [id number] [place] [address]- 5191 Dec, [facility] [place] [facility] [id number] [place] [address]- 6214 Dec, [facility] [place] [facility] [address] [facility] [id number] [place] [address]- 9199 Nov, [facility] [place] [facility] [address] [facility] [id number], [place] [address]- 7814 Oct, [facility] [place] [facility] [address] [facility] [id number], [place] [address]- 4403 Oct, [facility] [place] [facility] [address] [facility] [id number] [place] [address]- 0114 Sep, [facility] [place] [facility] [address] [facility] [id number] [place] [address]- 0500 Sep, [facility] [place] [facility] [id number] [place] [address]- 8338 Sep, [facility] [place] [facility] [address] [id number] [place] [address]- 3699 Sep, [facility] [place] [facility] [address] [id number] [place] [address]- 5916 Sep, [facility] [place] [facility] [address] [id number] [place] [address]- 2784 Sep, [facility] [place] [facility] [address] [id number] [place] [address]- 7905 Sep, [facility] [place] [facility] [address] [id number] [place] [address]- 0521 Sep, [facility] [place] [facility] [address] [id number] [place] [address]- 8026 August, [facility] [place] [facility] [address] [id number] [place] [address]- 0624 August, [facility] [place] [facility] [address] [id number] [place] [address]- 9423 August, [facility] [place] [facility] [address] [id number] [place] [address] Jul, [facility] [place] [facility] [address] [id number] [place] [address] Jul, [facility] [place] [facility] [address] [id number] [place] [address] Jun, [facility] [place] [facility] [address] [id number] [place] [address] Jun, [facility] [place] [facility] [address] [id number] [place] [address] Jun, [facility] [place] [facility] [address] [id number] [place] [address] Jun, [facility] [place] [facility] [address] [id number] [place] [address] May, [facility] [place] [facility] [address] [id number] [place] [address] May, [facility] [place] [facility] [address] [id number] [place] [address] Apr, [facility] [place] [facility] [address] [id number] [place] [address] Apr, [facility] [place] [facility] [address] [facility] [id number] [place] [address] Apr, [facility] [place] [facility] [address] [id number] [place] [address] Mar, [facility] [place] [facility] [address] [id number] [place] [address] Mar, [facility] [place] [facility] [address] [id number] [place] [address] Mar, [facility] [place] [facility] [address] [facility] [id number] [place] [address] Feb, [facility] [place] [facility] [address] [id number], [place] [address] Feb, [facility] [place] [facility] [address] [id number][place] [address] Feb, [facility] [place] [facility] [address] [facility] [id number], [place] [address] Feb, [facility] [place] [facility] [address] [id number], [place] [address] Jan, [facility] [place] [facility] [address] [id number], [place] [address] 14 Jan, 2011 [facility] [place] [facility] [address] [id number], [place] [address] Jan, [facility] [place] [facility] [address] [id number], [place] [address] 16 Dec, 2010 [facility] [place] [facility] [address] [id number], [place] [address] Oct, [facility] [place] [facility] [id number], [place] [address] Mar, [facility] [place] [id number], [place] [address] Feb, [facility] [place] [id number], [place] [address] Feb, [facility] [place] [id number], [place] [address] May, [facility] [place] [id number], [place] [address] Apr, [facility] [place] [id number], [place] [address] Mar, [facility] [place] [id number], [place] [address] Jan, [facility] [place] [id number], [place] [address] Oct, [facility] [place] [id number], [place] [address] Jul, [facility] [place] [address], [place] [address] Mar, [facility] [place] [id number], [place] [address] Feb, [facility] [place] [id number], [place] [address] Jan, IMMUNIZATIONS No Known Immunizations SOCIAL HISTORY Never Assessed REASON FOR VISIT Prior Authorization Request PLAN OF CARE VITAL SIGNS MEDICATIONS Unknown [...]
--- OUTSIDE RECORDS SUMMARY | 2018-07-05 12:12 | XMS REPORT ---
Author Author KATHYA FISCHER Organization [facility] Address [address] [place] [address] Care Team Providers Care Test Preparer Name Role Phone KATHYA FISCHER Unavailable PROBLEMS Type Condition ICD9-CM Code RCA20-BY Code Onset Dates Condition Status SNOMED Code Problem Arthritis M19.90 Active 4480325 Problem 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 Active 00288821 Problem Polyneuropathy G62.9 Active 12585614 Problem Other male erectile dysfunction N52.8 Active 818352903 Problem Constipation K59.00 Active 98719667 Problem Type 2 diabetes mellitus with 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 E11.65 Active 333154245 Problem Controlled type 2 diabetes mellitus without complication, without long -term current use of insulin E11.9 Active 055922617 Problem FPC current use of insulin Z79.4 Active 409106672 Problem Neuropathy G62.9 Active 456612812 Problem Obstructive sleep apnea G47.33 Active 53878347 Problem Hypertension, benign I10 Active 59348604 Problem Uncontrolled type 2 diabetes mellitus without complication, without long-term current use of insulin E11.65 Active 211999883 Problem Stress incontinence of urine N39.3 Active 61337879 Problem Fibromyalgia M79.7 Active [id number] ALLERGIES No Information ENCOUNTERS Encounter Location Date Diagnosis [facility] [id number] [place] [address] 44919- 4484 Mar, [facility] [id number] [place] [address] 18620- 1611 Feb, [facility] [id number] [place] [address] 74011- 7686 Feb, [facility] [id number] [place] [address] 49089- 8752 Feb, [facility] [id number] [place] [address] 61577- 2414 Feb, [facility] [id number] [place] [address] 73549- 9208 Feb, [facility] [address] 83830- 1309 Feb, Fibromyalgia M79.7 and Uncontrolled type 2 diabetes mellitus without complication, without long-term current use of insulin E11.65 [facility] [id number] [place] [address] 60769- 1706 Jan, [facility] [id number] [place] [address] 70950- 7114 Jan, [facility] [address] 03486- 6634 Jan, Uncontrolled type 2 diabetes mellitus without complication, without long-term current use of insulin E11.65 [facility] [address] 66012- 8271 Jan, [facility] [address] 87398- 6284 Dec, Therapeutic drug monitoring Z51.81 and Controlled type 2 diabetes mellitus without complication, without long-term current use of insulin E11.9 [facility] [id number] [place] [address] 49557- 4149 Dec, Renal insufficiency N28.9 [facility] [id number] [place] [address] 66190 2546 Dec, [facility] [id number] [place] [address] 19930 2542 Dec, Dizziness R42 [facility] [address] 42818 254 Dec, Dizziness R42 and Encounter for immunization Z23 [facility] [id number] [place] [address] 81744- 2270 Dec, Therapeutic drug monitoring Z51.81 and Controlled type 2 diabetes mellitus without complication, without long-term current use of insulin E11.9 [facility] [address] [facility] [id number] [address]- 1796 Dec, [facility] [id number] [place] [address] 45736- 6666 Dec, [facility] [address] [facility] [id number], [place] [address]- 7596 Dec, [facility] [id number] [place] [address] 31923 2546 Nov, [facility] [id number] [place] [address] 62307- 7534 Nov, Therapeutic drug monitoring Z51.81 [facility] [id number] [place] [address] 27956- 1495 Nov, [facility] [id number] [place] [address] 56207- 9384 Nov, Therapeutic drug monitoring Z51.81 ; Fibromyalgia M79.7 and Controlled type 2 diabetes mellitus without complication, without long-term current use of insulin E11.9 [facility] [address] [address]- 1874 Nov, Type 2 diabetes mellitus with 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 E11.65 [facility] [address] [address]- 2270 Nov, [facility] [address] [address]- 1646 Nov, [facility] [address] [address]- 2544 Nov, Type 2 diabetes mellitus with 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 E11.65 [facility] [address] [address] 2546 Nov, [facility] [address] [facility] [id number], [place] [address] 2546 Nov, [facility] [id number] [place] [address] 66010- 1007 Nov, Constipation K59.00 [facility] [address] [address]- 7197 Oct, Diabetes type 2, controlled E11.9 [facility] [id number] [place] [address] 22903- 9118 Oct, Type 2 diabetes mellitus with 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 E11.65 ; FPC current use of insulin Z79.4 and Neuropathy G62.9 [facility] [address] [address]- 7593 Oct, [facility] [id number] [place] [address] 33749- 1743 Oct, [facility] [id number] [place] [address] 90785- 1579 Oct, [facility] [id number] [place] [address] 76109- 2358 Oct, [facility] [id number] [place] [address] 09591- 2904 Oct, [facility] [id number] [address]- 1034 Oct, [facility] [address], [place] [address]- 0674 Oct, [facility] [address], [place] [address]- 6172 Sep, [facility] [address] [address]- 9706 Sep, Uncontrolled type 2 diabetes mellitus without complication, without long-term current use of insulin E11.65 [facility] [address], [place] [address]- 1535 Sep, Hypertension, benign I10 ; Fibromyalgia M79.7 ; Controlled type 2 diabetes mellitus without complication, without long-term current use of insulin E11.9 and Uncontrolled type 2 diabetes mellitus without complication, without long-term current use of insulin E11.65 [facility] [id number] [place] [address] 51421- 7857 Sep, [facility] [id number] [place] [address] 23350 2546 Sep, Uncontrolled type 2 diabetes mellitus without complication, without long-term current use of insulin E11.65 [facility] [id number] [place] [address] 69309 2546 Sep, [facility] [id number] [place] [address] 98728 2546 Sep, [facility] [id number] [place] [address] 82435- 9306 Sep, Uncontrolled type 2 diabetes mellitus without complication, without long-term current use of insulin E11.65 and Fibromyalgia M79.7 [facility] [id number] [place] [address] 11894- 8536 August, [facility] [id number] [place] [address] 18965 2546 August, [facility] [id number] [place] [address] 28984- 0186 August, [facility] [id number] [place] [address] 08050 2546 August, Fibromyalgia M79.7 [facility] [id number] [place] [address] 68838 2546 Jul, Hypertension, benign I10 [facility] [id number] [place] [address] 52642 2546 Jul, Fibromyalgia M79.7 [facility] [id number] [place] [address] 29779 2546 Jul, [facility] [id number] [place] [address] 10076 2546 Jun, [facility] [id number] [place] [address] 63189- 4531 Jun, Hypertension, benign I10 ; Arthritis M19.90 ; FPC current use 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 Z79.891 and Uncontrolled type 2 diabetes mellitus without complication, without long-term current use of insulin E11.65 [facility] [id number] [place] [address] 45738 -2618 06 Jun, 2017 Acute nasopharyngitis J00 and BMI 50.0-59.9, adult Z68.43 [facility] [id number] [place] [address] 19327- 3323 Jun, Fibromyalgia M79.7 [facility] [address] 94464- 3943 May, [facility] [address] 22800- 9879 02 May, 2017 Fibromyalgia M79.7 [facility] [address] 83260- 0172 Apr, Fibromyalgia M79.7 [facility] [id number] [place] [address] 76815- 4138 Apr, [facility] [id number] [place] [address] 24030- 4203 Apr, [facility] [id number] [place] [address] 64766- 9903 Apr, Arthritis M19.90 [facility] [address] 11964- 5724 Apr, Arthritis M19.90 [facility] [id number] [place] [address] 17369- 9624 Apr, Arthritis M19.90 and Controlled type 2 diabetes mellitus without complication, without long-term current use of insulin E11.9 [facility] [id number] [place] [address] 54573- 1293 Apr, [facility] [address] 59484- 6302 Apr, Fibromyalgia M79.7 [facility] [id number] [place] [address] 05738- 5132 Mar, [facility] [id number] [place] [address] 43698- 5535 Mar, [facility] [id number] [place] [address] 68371- 4541 Mar, Fibromyalgia M79.7 [facility] [id number] [place] [address] 17427- 5230 Feb, [facility] [address] 33987- 4340 Feb, [facility] [id number] [place] [address] 36310- 5056 Feb, [facility] [address] 60904- 3443 Feb, Fibromyalgia M79.7 [facility] [id number] [place] [address] 73843- 8656 Feb, Diabetes type 2, uncontrolled E11.65 and Encounter for immunization Z23 [facility] [id number] [place] [address] 51337- 3860 Jan, [facility] [id number] [place] [address] 98993- 6380 Jan, Fibromyalgia M79.7 [facility] [id number] [place] [address] 25856- 5343 Dec, [facility] [id number] [place] [address] 25052- 9005 Dec, Fibromyalgia M79.7 [facility] [id number] [place] [address] 72174- 0366 Nov, [facility] [id number] [place] [address] 70520- 8679 Nov, [facility] [address], [place] [address]- 3698 Nov, 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 and Polyneuropathy G62.9 [facility] [id number] [place] [address] 70140- 8300 Nov, [facility] [id number] [place] [address] 37955- 7373 Nov, [facility] [id number] [place] [address] 65655- 7860 Oct, Diabetes type 2, uncontrolled E11.65 [facility] [id number] [place] [address] 51618- 9070 Oct, Diabetes type 2, uncontrolled E11.65 ; Polyneuropathy G62.9 and Pain in right wrist M25.531 [facility] [id number] [place] [address] 08602- 2099 Oct, [facility] [id number] [place] [address] 59880- 4951 Oct, Pain in left shoulder M25.512 [facility] [id number] [place] [address] 02710- 2831 Sep, [facility] [id number] [place] [address] 14685- 3355 Sep, Pain in left shoulder M25.512 [facility] [id number] [place] [address] 78160- 8673 Sep, [facility] [id number] [place] [address] 72426- 7585 August, Pain in left shoulder M25.512 [facility] [id number] [place] [address] 94945- 1416 Jul, [facility] [id number], [place] [address]- 9087 Jul, [facility] [id number], [place] [address]- 7893 Jul, Pain in left shoulder M25.512 [facility] [id number] [place] [address] 44530- 6189 Jun, [facility] [id number] [address]- 0945 17 Jun, 2016 [facility] [id number] [place] [address] 98608- 4021 Jun, Diabetes type 2, uncontrolled E11.65 ; Fibromyalgia M79.7 and Arthritis M19.90 [facility] [id number] [place] [address] 31594- 7299 Jun, Pain in left shoulder M25.512 [facility] [id number] [place] [address] 65331- 6720 May, [facility] [id number] [place] [address] 49857- 3875 May, Diabetes type 2, controlled E11.9 [facility] [address], [place] [address]- 7930 17 May, 2016 [facility] [id number] [place] [address] 34123- 9307 May, Uncontrolled type 2 diabetes mellitus without complication, without long-term current use of insulin E11.65 [facility] [address] [address]- 5108 May, Pain in left shoulder M25.512 [facility] [address], [place] [address]- 0993 03 May, 2016 Diabetes type 2, controlled E11.9 and Uncontrolled type 2 diabetes mellitus without complication, without long-term current use of insulin E11.65 [facility] [address], [place] [address]- 4824 Apr, [facility] [id number] [place] [address] 62882- 4242 Apr, [facility] [address] [id number] [place] [address]- 2430 Mar, [facility] [address] [id number] [place] [address]- 6272 Mar, [facility] [address] [id number] [place] [address]- 6081 Mar, [facility] [address] [id number] [place] [address]- 6299 Feb, [facility] [address] [id number] [place] [id number] Feb, Dental examination Z01.20 [facility] [address] [id number] [place] [address]- 7694 Jan, [facility] [address] [id number] [place] [address]- 9232 Dec, [facility] [address] [id number] [place] [address]- 0473 Dec, [facility] [id number] [place] [address], [place] [address]- 2956 Dec, [facility] [address] [facility] [id number] [place] [address]- 0480 Dec, Diabetes type 2, controlled E11.9 [facility] [address] [id number] [place] [address]- 4501 Nov, [facility] [address] [id number], [place] [address]- 2549 Nov, [facility] [address] [id number] [place] [address]- 9550 Nov, [facility] [address] [id number] [place] [address]- 9706 Nov, [facility] [address] [id number], [place] [address]- 3762 Oct, [facility] [address] [facility] [id number] [place] [address]- 2488 Oct, [facility] [address] [facility] [id number] [place] [address]- 9060 Oct, [facility] [address] [facility] [id number] [place] [address]- 0769 Sep, [facility] [id number] [place] [address], [place] [address]- 7351 Sep, Diabetes type 2, controlled E11.9 [facility] [address] [facility] [id number] [place] [address]- 8429 Sep, Diabetes type 2, controlled E11.9 [facility] [address] [place] [address]- 4428 August, [facility] [id number] [place] [address] 87131- 4081 August, [facility] [address] [place] [address]- 5360 August, Type 2 diabetes mellitus without complication E11.9 and Pain in left shoulder M25.512 [facility] [address] [place] [address]- 5397 Jul, [facility] [address] [place] [address]- 9991 Jul, Diabetes type 2, controlled E11.9 and Hypertension, benign I10 [facility] [address] [place] [address]- 2422 Jun, [facility] [address] [place] [address]- 3509 Jun, [facility] [address] [place] [address]- 9662 Jun, Diabetes 250.00 [facility] [address], [place] [address]- 2542 Jun, [facility] [id number] [place] [address] 50374- 9801 May, Diabetes type 2, uncontrolled E11.65 [facility] [id number] [place] [address] 45288- 1295 May, [facility] [id number] [place] [address] 17769- 9881 Apr, Type 2 diabetes mellitus without complication E11.9 [facility] [id number] [place] [address] 99638- 8467 Apr, Encounter for immunization Z23 [facility] [address] 70635- 5767 Apr, [facility] [id number] [place] [address] 37740- 5699 Mar, [facility] [id number] [place] [address] 28586- 8323 Mar, [facility] [id number] [place] [address] 44349- 4602 Mar, [facility] [id number] [place] [address] 87028- 2455 Feb, [facility] [id number] [place] [address] 71019- 9804 Jan, [facility] [id number] [place] [address] 88517- 6208 Jan, [facility] [id number] [place] [address] 26926- 4273 Jan, [facility] [id number] [place] [address] 12501- 9289 Dec, Diabetes 250.00 and COPD (chronic obstructive pulmonary disease) 496 [facility] [id number] [place] [address] 24827- 3529 Dec, [facility] [id number] [address]- 4101 Dec, [facility] [address], [place] [address]- 4418 Nov, [facility] [id number], [place] [address]- 0476 Oct, Diabetes 250.00 [facility] [id number] [place] [address] 982818- 8341 Sep, [facility] [id number] [place] [address] 98917- 6114 Sep, [facility] [id number] [place] [address] 243741- 9104 Sep, [facility] [id number] [place] [address] 61124- 1338 Sep, Diabetes 250.00 [facility] [id number] [place] [address] 67842- 9644 Sep, [facility] [id number] [place] [address] 84966- 3897 Sep, [facility] [id number] [place] [address] 068618- 8864 August, Hypertension, essential, benign 401.1 ; Coronary atherosclerosis of [place] coronary artery 414.01 and Diabetic neuropathy associated with type 2 diabetes mellitus 250.60 [facility] [address], [place] [address]- 4728 Jul, [facility] [address], [place] [address]- 2495 Jul, [facility] [id number] [place] [address] 16175- 7134 Jul, [facility] [address], [place] [address]- 3179 Jun, [facility] [id number] [place] [address] 659640- 5547 Jun, [facility] [place] [facility] [address] [id number] [place] [address]- 3123 Jun, [facility] [place] [facility] [address] [id number] [place] [address]- 8720 Jun, [facility] [place] [facility] [address] [id number] [place] [address]- 8684 Jun, [facility] [place] [facility] [address] [id number] [place] [address] May, [facility] [place] [facility] [address] [id number] [place] [address] May, [facility] [place] [facility] [address] [id number] [place] [address] May, [facility] [place] [facility] [address] [facility] [id number] [place] [address] May, [facility] [place] [facility] [address] [id number] [place] [address] May, [facility] [place] [facility] [address] [id number] [place] [address] May, [facility] [place] [facility] [address] [id number] [place] [address] May, [facility] [place] [facility] [address] [id number] [place] [address] Apr, [facility] [place] [facility] [address] [id number] [place] [address] Apr, [facility] [place] [facility] [address] [id number] [place] [address] Apr, [facility] [place] [facility] [address] [id number] [place] [address] Apr, [facility] [place] [facility] [address] [facility] [id number] [place] [address] Mar, [facility] [place] [facility] [address] [id number] [place] [address] Mar, [facility] [place] [facility] [address] [id number] [place] [address] Mar, [facility] [place] [facility] [address] [id number] [place] [address] Mar, [facility] [place] [facility] [address] [id number] [place] [address] Feb, [facility] [place] [facility] [address] [id number] [place] [address] Feb, [facility] [place] [facility] [address] [id number] [place] [address] Feb, [facility] [facility] [address] [id number] [place] [address] Feb, [facility] [place] [facility] [address] [id number] [place] [address] 6[address] Feb, [facility] [place] [facility] [address] [id number] [place] [address] 6284 Feb, [facility] [place] [facility] [address] [id number] [place] [address] 5[address] Feb, [facility] [place] [facility] [address] [facility] [id number] [place] [address]- 4676 Jan, [facility] [place] [facility] [address] [id number] [place] [address] 8502 Jan, [facility] [place] [facility] [address] [id number] [place] [address] 5757 Dec, [facility] [place] [facility] [address] [id number] [place] [address] 4787 Dec, [facility] [place] [facility] [address] [id number] [place] [address] 3663 Dec, [facility] [place] [facility] [address] [id number] [place] [address] 7778 Dec, [facility] [place] [facility] [address] [id number] [place] [address] 39[address] 04 Dec, 2013 [facility] [place] [facility] [address] [id number] [place] [address] 0805 Dec, [facility] [place] [facility] [address] [id number] [place] [address] 5918 Dec, [facility] [place] [facility] [address] [id number] [place] [address]- 0542 Dec, [facility] [place] [facility] [address] [id number] [place] [address] 0424 Nov, [facility] [place] [facility] [address] [id number] [place] [address] Nov, [facility] [place] [facility] [address] [id number] [place] [address]- 3317 Nov, [facility] [place] [facility] [address] [id number] [place] [address]- 3958 Nov, [facility] [place] [facility] [address] [id number] [place] [address] 3565 Oct, [facility] [place] [facility] [address] [id number] [place] [address] 3805 Oct, [facility] [place] [facility] [address] [id number] [place] [address]- 7371 Oct, [facility] [place] [facility] [address] [id number] [place] [address]- 7645 Oct, [facility] [place] [facility] [address] [id number] [place] [address]- 6176 Oct, [facility] [place] [facility] [address] [id number] [place] [address]- 5141 Oct, [facility] [place] [facility] [address] [id number] [place] [address]- 6931 Oct, [facility] [place] [facility] [address] [id number] [place] [address]- 4695 Oct, [facility] [place] [facility] [address] [id number] [place] [address]- 7668 Sep, [facility] [address] [id number] [place] [address]- 2809 Sep, [facility] [address] [id number] [place] [address]- 0010 August, [facility] [place] [facility] [address] [id number] [place] [address] 3860 August, [facility] [address] [id number] [place] [address]- 6065 Jul, [facility] [address] [id number] [place] [address] 0996 Jul, [facility] [address] [id number] [place] [address]- 9648 Jul, [facility] [place] [address] [id number] [place] [address]- 8261 Jul, [facility] [address] [id number] [place] [address]- 2703 Jul, [facility] [address] [id number] [place] [address]- 8374 Jul, [facility] [address] [id number] [place] [address]- 5294 Jul, [facility] [address] [id number] [place] [address]- 3861 Jul, [facility] [facility] [address] [id number] [place] [address]- 7606 Jun, [facility] [address] [id number] [place] [address]- 4361 Jun, [facility] [address] [id number] [place] [address]- 1610 Jun, [facility] [address] [id number] [place] [address]- 5258 Jun, [facility] [address] [id number] [place] [address]- 2950 May, [facility] [address] [id number] [place] [address] May, [facility] [address] [id number] [place] [address]- 2273 Apr, [facility] [address] [id number] [place] [address]- 6198 Apr, [facility] [address] [id number] [place] [address]- 4055 Mar, [facility] [address] [id number] [place] [address]- 4339 Mar, [facility] [address] [id number] [place] [address]- 4518 Mar, [facility] [address] [id number] [place] [address]- 6896 Mar[facility] [address] [id number] [place] [address]- 9580 Mar, [facility] [address] [id number] [place] [address]- 1466 Mar, [facility] [address] [id number] [place] [address]- 5620 Feb, [facility] [address] [id number] [place] [address]- 0051 Feb, [facility] [address] [id number] [place] [address]- 2429 Feb, [facility] [address] [id number] [place] [address] Feb, [facility] [address] [id number] [place] [address]- 7054 Feb, [facility] [address] [id number] [place] [address]- 3872 18 Feb, 2013 [facility] [address] [id number] [place] [address]- 4423 Feb, [facility] [address] [id number] [place] [address]- 9492 Feb, [facility] [address] [id number] [place] [address]- 3068 15 Jan, 2013 [facility] [address] [id number] [place] [address]- 3353 15 Jan, 2013 [facility] [address] [id number] [place] [address]- 4336 14 Jan, 2013 [facility] [address] [id number] [place] [address]- 1077 14 Jan, 2013 [facility] [address] [id number], [place] [address]- 7468 18 Dec, 2012 [facility] [address] [id number] [place] [address]- 8155 Dec, [facility] [address] [id number] [place] [address]- 5359 2012 [facility] [address] [id number], [place] [address]- 1095 Nov, [facility] [address] [id number], [place] [address]- 0914 Nov, [facility] [address] [id number] [place] [address]- 3341 Oct, [facility] [address] [id number], [place] [address]- 8518 Oct, [facility] [address] [id number] [place] [address]- 2546 Oct, [facility] [address] [id number] [place] [address]- 0280 28 Sep, 2012 [facility] [address] [id number] [place] [address]- 7233 Sep, [facility] [address] [id number] [place] [address]- 7046 Sep, [facility] [address] [id number] [place] [address]- 7502 Sep, [facility] [address] [id number] [place] [address]- 6239 Sep, [facility] [address] [id number] [place] [address]- 2861 Sep, [facility] [address] [id number] [place] [address]- 9987 August, [facility] [address] [id number] [place] [address]- 3229 August, [facility] [address] [id number] [place] [address]- 2518 August, [facility] [address] [id number] [place] [address]- 6607 August, [facility] [address] [id number] [place] [address]- 4969 August, [facility] [address] [id number] [place] [address]- 1071 August, [facility] [address] [id number] [place] [address]- 8202 August, [facility] [address] [id number] [place] [address]- 1146 Jul, [facility] [address] [id number] [place] [address]- 1804 Jul, [facility] [address] [id number] [place] [address]- 9028 Jun, [facility] [address] [id number] [place] [address]- 2452 Jun, [facility] [address] [id number] [place] [address]- 2905 May, [facility] [address] [id number] [place] [address]- 2277 May, [facility] [address] [id number] [place] [address]- 2792 Apr, [facility] [address] [id number] [place] [address]- 7121 Mar, [facility] [address] [id number] [place] [address]- 9832 Mar, [facility] [address] [id number] [place] [address]- 9210 Mar, [facility] [address] [id number] [place] [address]- 7140 Mar, [facility] [address] [facility] [id number] [place] [address]- 6662 Mar, [facility] [address] [facility] [id number] [place] [address]- 9193 Mar, [facility] [address] [facility] [id number] [place] [address]- 9558 Feb, [facility] [address] [id number], [place] [address]- 3694 Feb, [facility] [address] [id number] [place] [address]- 3337 Feb, [facility] [address] [id number] [place] [address]- 1787 Feb, [facility] [address] [facility] [id number], [place] [address]- 4125 Feb, [facility] [address] [id number], [place] [address]- 3629 Feb, [facility] [address] [id number] [place] [address]- 1780 Feb, [facility] [address] [id number] [place] [address]- 2426 Feb, [facility] [address] [facility] [id number] [place] [address]- 9861 Jan, [facility] [address] [id number] [place] [address]- 3642 Jan, [facility] [address] [id number] [place] [address]- 7175 28 Dec, 2011 [facility] [address] [id number] [place] [address]- 2334 Dec, [facility] [id number] [place] [address]- 3437 Dec, [facility] [address] [facility] [id number] [place] [address]- 0157 Dec, [facility] [address] [id number] [place] [address]- 4491 Dec, [facility] [address] [facility] [id number] [place] [address]- 7427 Nov, [facility] [address] [facility] [id number], [place] [address]- 5533 Oct, [facility] [address] [facility] [id number], [place] [address]- 0048 Oct, [facility] [address] [facility] [id number] [place] [address]- 8245 Sep, [facility] [address] [facility] [id number] [place] [address]- 9089 Sep, [facility] [id number] [place] [address]- 3920 Sep, [facility] [address] [id number] [place] [address]- 0553 Sep, [facility] [address] [id number] [place] [address]- 1833 Sep, [facility] [address] [id number] [place] [address]- 3482 Sep, [facility] [address] [id number] [place] [address]- 3394 Sep, [facility] [address] [id number] [place] [address]- 1142 Sep, [facility] [facility] [address] [id number] [place] [address]- 3256 August, [facility] [address] [id number] [place] [address]- 5205 August, [facility] [address] [id number] [place] [address]- 6537 August, [facility] [place] [facility] [address] [id number] [place] [address]- 0282 Jul, [facility] [address] [id number] [place] [address]- 3072 Jul, [facility] [address] [id number] [place] [address]- 6959 Jun, [facility] [address] [id number] [place] [address]- 4548 Jun, [facility] [address] [id number] [place] [address]- 0007 Jun, [facility] [facility] [address] [id number] [place] [address]- 7816 Jun, [facility] [address] [id number] [place] [address]- 1366 May, [facility] [address] [id number] [place] [address]- 9334 May, [facility] [facility] [address] [id number] [place] [address]- 0090 Apr, [facility] [place] [facility] [address] [id number] [place] [address]- 5486 Apr, [facility] [address] [facility] [id number] [place] [address]- 2260 Apr, [facility] [place] [facility] [address] [id number] [place] [address]- 9829 Mar, [facility] [place] [facility] [address] [id number] [place] [address]- 6956 Mar, [facility] [place] [facility] [address] [id number] [place] [address]- 0750 Mar, [facility] [place] [facility] [address] [facility] [id number] [place] [address]- 6490 Feb, [facility] [place] [facility] [address] [id number], [place] [address]- 7845 Feb, [facility] [place] [facility] [address] [id number], [place] [address]- 6969 Feb, [facility] [place] [facility] [address] [facility] [id number], [place] [address]- 0194 Feb, [facility] [place] [facility] [address] [id number], [place] [address]- 5288 Jan, [facility] [place] [facility] [address] [id number], [place] [address]- 9508 14 Jan, 2011 [facility] [facility] [address] [id number], [place] [address]- 5351 Jan, [facility] [place] [facility] [address] [id number], [place] [address]- 1698 16 Dec, 2010 [facility] [facility] [address] [id number], [place] [address] 2540 Oct, [facility] [place] [facility] [id number] [address] Mar, [facility] [id number], [place] [address]- 9968 Feb, [facility] [id number] 3403 Feb, [facility] [id number] 7700 May, [facility] [id number], [place] [address]- 8569 Apr, [facility] [id number] [place] [address]- 3967 Mar, [facility] [id number] [place] [address] 7[address]- 2483 Jan, [facility] [id number] [place] [address] 8[address]- 5898 Oct, [facility] [id number], [place] [address]- 7247 Jul, [facility] [id number] 9697 Mar, [facility] [id number], [place] [address]- 7502 Feb, [facility] [id number], [place] [address]- 7627 Jan, IMMUNIZATIONS No Known Immunizations SOCIAL HISTORY Never Assessed REASON FOR VISIT Controlled Med Refill 03/18/18 PLAN OF CARE VITAL SIGNS MEDICATIONS Medication [...]
--- OUTSIDE RECORDS SUMMARY | 2018-07-05 12:13 | XMS REPORT ---
Author Author KATHYA FISCHER Organization [facility] Address [address] [place] [address] Care Team Providers Care Groutman Name Role Phone KATHYA FISCHER Unavailable PROBLEMS Type Condition ICD9-CM Code LDV46-AS Code Onset Dates Condition Status SNOMED Code Problem Arthritis M19.90 Active 3538267 Problem 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 Active 25549577 Problem Polyneuropathy G62.9 Active 19833711 Problem Other male erectile dysfunction N52.8 Active 414920895 Problem Constipation K59.00 Active 63349682 Problem Type 2 diabetes mellitus with 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 E11.65 Active 667929747 Problem Controlled type 2 diabetes mellitus without complication, without long -term current use of insulin E11.9 Active 547184495 Problem nursing home current use of insulin Z79.4 Active 406956403 Problem Neuropathy G62.9 Active 866981584 Problem Obstructive sleep apnea G47.33 Active 32049472 Problem Hypertension, benign I10 Active 04705843 Problem Uncontrolled type 2 diabetes mellitus without complication, without long-term current use of insulin E11.65 Active 183876261 Problem Stress incontinence of urine N39.3 Active 64575579 Problem Fibromyalgia M79.7 Active 240688292 ALLERGIES No Information ENCOUNTERS Encounter Location Date Diagnosis [facility] [id number] [place] [address] 56873- 0162 Mar, [facility] [id number] [place] [address] 02345- 1381 Feb, [facility] [id number] [place] [address] 76265- 4446 Feb, [facility] [id number] [place] [address] 05883- 1089 Feb, [facility] [id number] [place] [address] 17598- 8356 Feb, Fibromyalgia M79.7 and Uncontrolled type 2 diabetes mellitus without complication, without long-term current use of insulin E11.65 [facility] [id number] [place] [address] 47955- 7316 Jan, [facility] [id number] [place] [address] 78772 2546 Jan, [facility] [address] 06484 2546 Jan, Uncontrolled type 2 diabetes mellitus without complication, without long-term current use of insulin E11.65 [facility] [id number] [place] [address] 20166- 4436 Jan, [facility] [address] 98304- 6253 Dec, Therapeutic drug monitoring Z51.81 and Controlled type 2 diabetes mellitus without complication, without long-term current use of insulin E11.9 [facility] [id number] [place] [address] 65148- 4606 Dec, Renal insufficiency N28.9 [facility] [address] 16613 2546 Dec, [facility] [id number] [place] [address] 47117 2546 Dec, Dizziness R42 [facility] [address] 80590 2546 Dec, Dizziness R42 and Encounter for immunization Z23 [facility] [id number] [place] [address] 03256 2546 Dec, Therapeutic drug monitoring Z51.81 and Controlled type 2 diabetes mellitus without complication, without long-term current use of insulin E11.9 [facility] [id number] [place] [address] 79730 2546 Dec, [facility] [address] 30712- 9924 Dec, [facility] [id number] [address]- 5077 Dec, [facility] [id number] [place] [address] 98381- 6492 Nov, [facility] [id number] [place] [address] 66217- 9406 Nov, Therapeutic drug monitoring Z51.81 [facility] [id number] [place] [address] 44076- 2682 Nov, [facility] [id number] [place] [address] 03610- 0729 Nov, Therapeutic drug monitoring Z51.81 ; Fibromyalgia M79.7 and Controlled type 2 diabetes mellitus without complication, without long-term current use of insulin E11.9 [facility] [id number] [place] [address] 19499- 6159 Nov, Type 2 diabetes mellitus with 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 E11.65 [facility] [id number] [place] [address] 33484- 9985 Nov, [facility] [id number] [place] [address] 72239- 5334 Nov, [facility] [id number] [place] [address] 50724- 5794 Nov, Type 2 diabetes mellitus with 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 E11.65 [facility] [id number] [place] [address] 71743- 0176 Nov, [facility] [id number] [place] [address] 12543- 4507 Nov, [facility] [id number] [place] [address] 26863- 0810 Nov, Constipation K59.00 [facility] [address] [address]- 7446 Oct, Diabetes type 2, controlled E11.9 [facility] [id number] [address]- 9224 Oct, Type 2 diabetes mellitus with 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 E11.65 ; nursing home current use of insulin Z79.4 and Neuropathy G62.9 [facility] [address] [address]- 1634 Oct, [facility] [id number] [place] [address] 71596- 2531 Oct, [facility] [id number] [place] [address] 95189- 1981 Oct, [facility] [id number] [place] [address] 64540- 5613 Oct, [facility] [id number] [place] [address] 92709- 8952 Oct, [facility] [id number] [place] [address] 54329- 1999 Oct, [facility] [id number] [address]- 7919 Oct, [facility] [id number] [place] [address] 26203- 4244 Sep, [facility] [address] [address]- 8787 Sep, Uncontrolled type 2 diabetes mellitus without complication, without long-term current use of insulin E11.65 [facility] [address] [address]- 0298 Sep, Hypertension, benign I10 ; Fibromyalgia M79.7 ; Controlled type 2 diabetes mellitus without complication, without long-term current use of insulin E11.9 and Uncontrolled type 2 diabetes mellitus without complication, without long-term current use of insulin E11.65 [facility] [address] [address]- 6024 Sep, [facility] [address] [place] [address] 34985- 7460 Sep, Uncontrolled type 2 diabetes mellitus without complication, without long-term current use of insulin E11.65 [facility] [address] [address]- 9885 Sep, [facility] [id number] [place] [address] 44159- 4818 Sep, [facility] [id number] [place] [address] 69544- 2979 Sep, Uncontrolled type 2 diabetes mellitus without complication, without long-term current use of insulin E11.65 and Fibromyalgia M79.7 [facility] [id number] [place] [address] 36237- 4142 August, [facility] [id number] [place] [address] 95579- 0001 August, [facility] [id number] [place] [address] 09044- 5174 August, [facility] [id number] [place] [address] 74847- 4312 August, Fibromyalgia M79.7 [facility] [id number] [place] [address] 39697- 8758 Jul, Hypertension, benign I10 [facility] [id number] [place] [address] 81797- 3329 Jul, Fibromyalgia M79.7 [facility] [address] [place] [address] 54732- 1799 Jul, [facility] [address] [address]- 5567 Jun, [facility] [id number] [place] [address] 34740- 1563 Jun, Hypertension, benign I10 ; Arthritis M19.90 ; nursing home current use 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 Z79.891 and Uncontrolled type 2 diabetes mellitus without complication, without long-term current use of insulin E11.65 [facility] [id number] [place] [address] 59477 -5414 Jun, Acute nasopharyngitis J00 and BMI 50.0-59.9, adult Z68.43 [facility] [id number] [place] [address] 43477- 4581 Jun, Fibromyalgia M79.7 [facility] [id number] [place] [address] 28689- 2026 May, [facility] [address] 06731- 1284 May, Fibromyalgia M79.7 [facility] [address] 91011- 7759 Apr, Fibromyalgia M79.7 [facility] [id number] [place] [address] 33654- 2412 Apr, [facility] [address] 11307- 3514 Apr, [facility] [id number] [place] [address] 77146- 4910 Apr, Arthritis M19.90 [facility] [id number] [place] [address] 79020- 2482 Apr, Arthritis M19.90 [facility] [id number] [place] [address] 76336- 1689 Apr, Arthritis M19.90 and Controlled type 2 diabetes mellitus without complication, without long-term current use of insulin E11.9 [facility] [id number] [place] [address] 49635- 2383 Apr, [facility] [address] 20637- 1756 Apr, Fibromyalgia M79.7 [facility] [id number] [place] [address] 84103- 2140 Mar, [facility] [address] [place] [address]- 4352 Mar, [facility] [address] 26630- 7283 Mar, Fibromyalgia M79.7 [facility] [id number] [place] [address] 45501- 3120 Feb, [facility] [address] 15196- 8119 Feb, [facility] [address] 78910- 9134 Feb, [facility] [address] 91006- 1440 Feb, Fibromyalgia M79.7 [facility] [address] 98468- 3092 Feb, Diabetes type 2, uncontrolled E11.65 and Encounter for immunization Z23 [facility] [id number] [place] [address] 14574- 4792 Jan, [facility] [id number] [place] [address] 59998- 5003 Jan, Fibromyalgia M79.7 [facility] [id number] [place] [address] 15906- 0692 Dec, [facility] [id number] [place] [address] 39410- 6726 Dec, Fibromyalgia M79.7 [facility] [id number] [place] [address] 35209- 9596 Nov, [facility] [id number] [place] [address] 40990- 2381 Nov, [facility] [id number] [place] [address] 23243- 8479 Nov, 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 and Polyneuropathy G62.9 [facility] [address] 26292- 3148 Nov, [facility] [address] [facility] [id number] [address]- 4343 Nov, [facility] [id number] [place] [address] 024204- 7778 Oct, Diabetes type 2, uncontrolled E11.65 [facility] [id number] [place] [address] 178133- 3608 Oct, Diabetes type 2, uncontrolled E11.65 ; Polyneuropathy G62.9 and Pain in right wrist M25.531 [facility] [id number] [place] [address] 92535- 9136 Oct, [facility] [id number] [place] [address] 26937- 3860 Oct, Pain in left shoulder M25.512 [facility] [id number] [place] [address] 33621- 4137 Sep, [facility] [id number] [address]- 5505 Sep, Pain in left shoulder M25.512 [facility] [id number] [place] [address] 50843- 1676 Sep, [facility] [id number] [address]- 5263 August, Pain in left shoulder M25.512 [facility] [address] [address]- 3915 Jul, [facility] [address] [address]- 0356 Jul, [facility] [id number] [place] [address] 97134- 0485 Jul, Pain in left shoulder M25.512 [facility] [address] [address]- 8379 Jun, [facility] [id number] [address]- 3556 17 Jun, 2016 [facility] [id number] [place] [address] 14386- 2706 Jun, Diabetes type 2, uncontrolled E11.65 ; Fibromyalgia M79.7 and Arthritis M19.90 [facility] [id number] [place] [address] 38643- 9148 Jun, Pain in left shoulder M25.512 [facility] [id number] [place] [address] 58271- 9880 May, [facility] [id number] [place] [address] 54545- 9297 May, Diabetes type 2, controlled E11.9 [facility] [id number] [place] [address] 37095- 8164 17 May, 2016 [facility] [id number] [place] [address] 21482- 4399 May, Uncontrolled type 2 diabetes mellitus without complication, without long-term current use of insulin E11.65 [facility] [id number] [place] [address] 33000- 1920 15 May, 2016 Pain in left shoulder M25.512 [facility] [address] [place] [address] 12929- 7959 May, Diabetes type 2, controlled E11.9 and Uncontrolled type 2 diabetes mellitus without complication, without long-term current use of insulin E11.65 [facility] [address] [address]- 3359 Apr, [facility] [id number] [place] [address] 34682- 5286 Apr, [facility] [address] [address]- 4709 Mar, [facility] [id number] [place] [address] 56549- 4713 Mar, [facility] [address] [id number] [place] [address]- 1311 Mar, [facility] [address] [id number] [place] [address]- 0510 Feb, [facility] [address] [id number] [place] [id number] Feb, Dental examination Z01.20 [facility] [address] [id number] [place] [address]- 1940 Jan, [facility] [address] [id number] [place] [address]- 0064 Dec, [facility] [address] [id number] [place] [address]- 7973 Dec, [facility] [address] [id number] [place] [address]- 3777 Dec, [facility] [address] [id number] [place] [address]- 8660 Dec, Diabetes type 2, controlled E11.9 [facility] [address] [id number] [place] [address]- 4402 Nov, [facility] [address] [id number] [place] [address]- 7269 Nov, [facility] [address] [id number] [place] [address]- 9749 Nov, [facility] [address] [id number] [place] [address]- 2023 Nov, [facility] [address] [id number] [place] [address]- 6624 Oct, [facility] [address] [id number] [place] [address]- 1221 Oct, [facility] [address] [id number] [place] [address]- 5616 Oct, [facility] [address] [address]- 8308 Sep, [facility] [id number] [place] [address] 81425- 3996 Sep, Diabetes type 2, controlled E11.9 [facility] [id number] [place] [address]- 5256 Sep, Diabetes type 2, controlled E11.9 [facility] [id number] [address]- 2829 August, [facility] [id number] [place] [address] 97932- 0730 August, [facility] [id number] [place] [address] 95362- 4774 August, Type 2 diabetes mellitus without complication E11.9 and Pain in left shoulder M25.512 [facility] [id number] [place] [address] 03645- 9487 Jul, [facility] [id number] [place] [address] 37194- 4889 Jul, Diabetes type 2, controlled E11.9 and Hypertension, benign I10 [facility] [address] [address]- 1705 Jun, [facility] [address] [address]- 0566 Jun, [facility] [address] [address]- 2547 Jun, Diabetes 250.00 [facility] [address] [place] [address] 2546 Jun, [facility] [address] [address]- 2548 May, Diabetes type 2, uncontrolled E11.65 [facility] [id number] [place] [address] 28777- 8438 May, [facility] [id number] [place] [address] 29738- 4675 Apr, Type 2 diabetes mellitus without complication E11.9 [facility] [id number] [place] [address] 05352- 0043 Apr, Encounter for immunization Z23 [facility] [address] 99994- 3012 Apr, [facility] [address] 96119- 7745 Mar, [facility] [address] 33497- 8371 Mar, [facility] [id number] [place] [address] 46440- 9814 Mar, [facility] [address] 13292- 0227 Feb, [facility] [id number] [place] [address] 61174- 9142 Jan, [facility] [id number] [place] [address] 80046- 0772 Jan, [facility] [id number] [place] [address] 72520- 6788 Jan, [facility] [id number] [place] [address] 80519- 8924 Dec, Diabetes 250.00 and COPD (chronic obstructive pulmonary disease) 496 [facility] [id number] [place] [address] 36891- 2388 Dec, [facility] [id number] [place] [address] 70716- 4106 Dec, [facility] [id number] [place] [address] 51137- 1111 Nov, [facility] [address] [place] [address]- 8536 Oct, Diabetes 250.00 [facility] [address] [address]- 4152 Sep, [facility] [id number] [address] Sep, [facility] [id number] [place] [address]- 9472 Sep, [facility] [id number] [place] [address]- 3465 Sep, Diabetes 250.00 [facility] [id number] [place] [address] 022589- 9082 Sep, [facility] [id number] [place] [address]- 9668 Sep, [facility] [id number] [place] [address]48- 9517 August, Hypertension, essential, benign 401.1 ; Coronary atherosclerosis of [place] coronary artery 414.01 and Diabetic neuropathy associated with type 2 diabetes mellitus 250.60 [facility] [id number] [address] Jul, [facility] [id number] [address] Jul, [facility] [id number] [address] Jul, [facility] [id number] [address] Jun, [facility] [id number] [address] [address] Jun, [facility] [id number] [address] [address] Jun, [facility] [id number] Jun, [facility] [place] [facility] [address] [id number] [place] [address]285 Jun, [facility] [place] [facility] [address] [id number] [place] [address]- 3166 May, [facility] [place] [facility] [address] [id number] [place] [address] May, [facility] [place] [facility] [address] [id number] [place] [address]258 May, 2014 [facility] [place] [facility] [address] [id number] [place] [address] [address] May, [facility] [place] [facility] [address] [id number] [place] [address]- [address]307 May, [facility] [place] [facility] [address] [id number] [place] [address]- 9469 May, [facility] [place] [facility] [address] [id number] [place] [address]- [address]15 May, [facility] [place] [facility] [address] [id number] [place] [address]- [address]45 Apr, [facility] [place] [facility] [address] [id number] [place] [address]- [address]247 Apr, [facility] [place] [facility] [address] [facility] [id number] [place] [address]- 4789 Apr, [facility] [place] [facility] [address] [address] [id number] [place] [address] Apr, [facility] [place] [facility] [address] [id number] [place] [address] 1954 Mar, [facility] [place] [facility] [address] [facility] [id number] [place] [address] 2068 Mar, [facility] [place] [facility] [address] [facility] [id number] [place] [address] 7448 Mar, [facility] [place] [facility] [address] [id number] [place] [address] 62[address] Mar, [facility] [place] [facility] [address] [id number] [place] [address] 3588 Feb, [facility] [place] [facility] [address] [id number] [place] [address] 5779 Feb, [facility] [place] [facility] [address] [id number] [place] [address] 1419 Feb, [facility] [place] [facility] [address] [id number] [place] [address] 4839 Feb, [facility] [place] [facility] [address] [id number] [place] [address]- 6711 Feb, [facility] [place] [facility] [address] [id number] [place] [address] 3371 Feb, [facility] [place] [facility] [address] [id number] [place] [address]- 0903 Feb, [facility] [place] [facility] [address] [id number] [place] [address]- 3596 Jan, [facility] [place] [facility] [address] [id number] [place] [address] 50[address] Jan, [facility] [place] [facility] [address] [id number] [place] [address] 8203 Dec, [facility] [place] [facility] [address] [id number] [place] [address]- 2543 Dec, [facility] [place] [facility] [address] [id number] [place] [address] 2540 10 Dec, 2013 [facility] [place] [facility] [address] [id number] [place] [address]- 2544 10 Dec, 2013 [facility] [place] [facility] [address] [id number] [place] [address]- 8890 Dec, [facility] [place] [facility] [address] [id number] [place] [address]- 2286 Dec, [facility] [place] [facility] [address] [id number] [place] [address]- 2377 Dec, [facility] [place] [facility] [address] [id number] [place] [address]- 7785 Dec, [facility] [place] [facility] [address] [id number] [place] [address] 9604 Nov, [facility] [place] [facility] [address] [id number] [place] [address]- 3303 Nov, [facility] [place] [facility] [address] [id number] [place] [address]- 5480 Nov, [facility] [place] [facility] [address] [id number] [place] [address]- 0584 Nov, [facility] [place] [facility] [address] [id number] [place] [address]- 4635 Oct, [facility] [place] [facility] [address] [id number] [place] [address]- 8423 Oct, [facility] [place] [facility] [address] [id number] [place] [address]- 1250 Oct, [facility] [place] [facility] [address] [id number] [place] [address]- 0730 Oct, [facility] [place] [facility] [address] [id number] [place] [address]- 1546 Oct, [facility] [place] [facility] [address] [id number] [place] [address]- 0215 Oct, [facility] [place] [facility] [address] [id number] [place] [address]- 7548 Oct, [facility] [place] [facility] [address] [id number] [place] [address]- 2586 Oct, [facility] [place] [facility] [address] [id number] [place] [address]- 7506 Sep, [facility] [place] [facility] [address] [id number] [address] 2[address] Sep, [facility] [place] [facility] [address] [id number] [place] [address] 5628 August, [facility] [place] [facility] [address] [id number] [place] [address]- 9268 August, [facility] [place] [facility] [address] [id number] [place] [address]- 8683 Jul, [facility] [place] [facility] [address] [id number] [place] [address]- 9667 Jul, [facility] [place] [facility] [address] [id number] [place] [address]- 9776 Jul, [facility] [place] [facility] [address] [id number] [place] [address]- 7325 Jul, [facility] [place] [facility] [address] [id number] [place] [address] 4939 Jul, [facility] [place] [facility] [address] [id number] [place] [address]- 2316 Jul, [facility] [place] [facility] [address] [id number] [place] [address]- 1981 Jul, [facility] [place] [facility] [address] [id number] [place] [address]- 5895 Jul, [facility] [place] [facility] [address] [id number] [place] [address]- 1273 Jun, [facility] [place] [facility] [address] [id number] [place] [address]- 2437 Jun, [facility] [place] [facility] [address] [id number] [place] [address]- 4467 Jun, [facility] [place] [facility] [address] [id number] [place] [address]- 5938 Jun, [facility] [place] [facility] [address] [id number] [place] [address]- 4626 May, [facility] [place] [facility] [address] [id number] [place] [address]- 8341 18 May, 2013 [facility] [place] [facility] [address] [id number] [place] [address]- 4386 Apr, [facility] [place] [facility] [address] [id number] [place] [address]- 6874 Apr, [facility] [place] [facility] [address] [id number] [place] [address]- 8638 Mar, [facility] [place] [facility] [address] [id number] [place] [address]- 4098 Mar, [facility] [place] [facility] [address] [id number] [place] [address]- 5677 Mar, [facility] [place] [facility] [address] [id number] [place] [address]- 3770 Mar, [facility] [place] [facility] [address] [id number] [place] [address]- 6055 Mar, [facility] [place] [facility] [address] [id number] [place] [address]- 3283 Mar, [facility] [place] [facility] [address] [id number] [place] [address]- 2491 Feb, [facility] [place] [facility] [address] [id number] [place] [address]- 3694 Feb, [facility] [place] [facility] [address] [id number] [place] [address]- 2475 Feb, [facility] [place] [facility] [address] [id number] [place] [address]- 5648 Feb, [facility] [place] [facility] [address] [id number] [place] [address]- 4646 Feb, [facility] [place] [facility] [address] [id number] [place] [address]- 3753 Feb, [facility] [place] [facility] [address] [id number] [place] [address]- 2106 Feb, [facility] [place] [facility] [address] [id number] [place] [address]- 3243 12 Feb, 2013 [facility] [place] [facility] [address] [id number] [place] [address]- 9234 15 Jan, 2013 [facility] [place] [facility] [address] [id number] [place] [address]- 2845 15 Jan, 2013 [facility] [place] [facility] [address] [id number] [place] [address]- 8777 14 Jan, 2013 [facility] [place] [facility] [address] [id number] [place] [address]- 1195 14 Jan, 2013 [facility] [place] [facility] [address] [id number] [place] [address]- 0115 18 Dec, 2012 [facility] [place] [facility] [address] [id number] [place] [address]- 8080 13 Dec, 2012 [facility] [place] [facility] [address] [id number] [address]- [address]89 2012 [facility] [place] [facility] [address] [id number] [place] [address]- 4030 23 Nov, 2012 [facility] [place] [facility] [address] [id number], [place] [address]- 7104 Nov, [facility] [place] [facility] [address] [id number], [place] [address]- 1896 16 Oct, 2012 [facility] [place] [facility] [address] [id number], [place] [address] 254 Oct, [facility] [place] [facility] [address] [id number] [place] [address] 2540 Oct, [facility] [place] [facility] [address] [id number], [place] [address]- 9789 Sep, [facility] [place] [facility] [address] [id number] [place] [address] 2546 Sep, [facility] [place] [facility] [address] [id number] [place] [address]- 3315 Sep, [facility] [address] [id number] [place] [address]- 4442 Sep, [facility] [address] [id number] [place] [address]- 6219 Sep, [facility] [address] [id number] [place] [address]- 6209 Sep, [facility] [address] [id number] [place] [address]- 7475 August, [facility] [address] [id number] [place] [address]- 7015 August, [facility] [address] [id number] [place] [address]- 0483 August, [facility] [address] [id number] [place] [address]- 8672 August, [facility] [address] [id number] [place] [address]- 9471 August, [facility] [address] [id number] [place] [address]- 0784 August, [facility] [address] [id number] [place] [address]- 3014 August, [facility] [address] [id number] [place] [address]- 8218 Jul, [facility] [address] [id number] [place] [address]- 6659 Jul, [facility] [place] [facility] [address] [id number] [place] [address]- 0522 Jun, [facility] [place] [facility] [address] [id number] [place] [address] Jun, [facility] [address] [id number] [place] [address]- 2693 May, [facility] [place] [facility] [address] [id number] [place] [address]- 7334 May, [facility] [place] [facility] [address] [id number] [place] [address]- 2670 Apr, [facility] [place] [facility] [address] [id number] [place] [address]- 4517 Mar, [facility] [place] [facility] [address] [id number] [place] [address]- 3037 Mar, [facility] [place] [facility] [address] [id number] [place] [address]- 3263 Mar, [facility] [place] [facility] [address] [id number] [place] [address]- 9027 Mar, [facility] [place] [facility] [address] [id number] [place] [address]- 8896 Mar, [facility] [place] [facility] [address] [id number] [place] [address]- 7473 Mar, [facility] [place] [facility] [address] [id number] [place] [address]- 2430 Feb, [facility] [place] [facility] [address] [id number] [place] [address]- 0115 Feb, [facility] [place] [facility] [address] [id number] [place] [address]- 3596 Feb, [facility] [place] [facility] [address] [id number], [place] [address]- 0600 Feb, [facility] [place] [facility] [address] [id number] [place] [address]- 6905 Feb, [facility] [place] [facility] [address] [id number] [place] [address]- 3507 Feb, [facility] [place] [facility] [address] [facility] [id number], [place] [address]- 8855 Feb, [facility] [place] [facility] [address] [id number], [place] [address]- 1118 Feb, [facility] [place] [facility] [address] [id number] [place] [address]- 6964 Jan, [facility] [place] [facility] [address] [id number] [place] [address]- 0016 Jan, [facility] [place] [facility] [address] [id number] [place] [address]- 2438 28 Dec, 2011 [facility] [place] [facility] [address] [id number] [place] [address]- 1258 Dec, [facility] [place] [facility] [address] [id number] [place] [address]- 6920 Dec, [facility] [place] [facility] [address] [id number] [place] [address]- 9703 Dec, [facility] [place] [facility] [address] [id number] [place] [address]- 8412 Dec, [facility] [place] [facility] [address] [facility] [id number] [place] [address]- 2737 Nov, [facility] [place] [facility] [address] [id number] [place] [address]- 0838 Oct, [facility] [place] [facility] [address] [facility] [id number] [place] [address]- 4029 Oct, [facility] [place] [facility] [address] [facility] [id number], [place] [address]- 0545 Sep, [facility] [place] [facility] [address] [facility] [id number], [place] [address]- 9611 Sep, [facility] [place] [facility] [address] [id number] [place] [address]- 6957 Sep, [facility] [place] [facility] [address] [facility] [id number] [place] [address]- 2397 Sep, [facility] [place] [facility] [address] [facility] [id number] [place] [address]- 8852 Sep, [facility] [place] [facility] [address] [id number] [place] [address]- 8858 Sep, [facility] [place] [facility] [address] [id number] [place] [address]- 2443 Sep, [facility] [place] [facility] [address] [id number] [place] [address]- 7295 Sep, [facility] [place] [facility] [address] [id number] [place] [address]- 0824 August, [facility] [place] [facility] [address] [id number] [place] [address]- 3689 August, [facility] [place] [facility] [address] [id number] [place] [address]- 2509 August, [facility] [place] [facility] [address] [id number] [place] [address]- 2045 Jul, [facility] [place] [facility] [address] [id number] [place] [address]- 0049 Jul, [facility] [place] [facility] [address] [id number] [place] [address]- 2985 Jun, [facility] [place] [facility] [address] [id number] [place] [address]- 9816 Jun, [facility] [place] [facility] [address] [id number] [place] [address]- 5211 Jun, [facility] [place] [facility] [address] [id number] [place] [address]- 3279 Jun, [facility] [place] [facility] [address] [id number] [place] [address]- 1550 May, [facility] [place] [facility] [address] [id number] [place] [address]- 7156 May, [facility] [place] [facility] [address] [id number] [place] [address]- 2546 Apr, [facility] [place] [facility] [address] [id number] [place] [address]- 8515 Apr, [facility] [place] [facility] [address] [id number] [place] [address]- 9242 Apr, [facility] [place] [facility] [address] [id number] [place] [address]- 7957 Mar, [facility] [place] [facility] [address] [id number] [place] [address]- 7342 Mar, [facility] [place] [facility] [address] [id number] [place] [address]- 0543 Mar, [facility] [place] [facility] [address] [id number] [place] [address]- 1077 Feb, [facility] [place] [facility] [address] [id number] [place] [address]- 0527 Feb, [facility] [place] [facility] [address] [id number] [place] [address]- 4160 Feb, [facility] [place] [facility] [address] [id number], [place] [address]- 6246 Feb, [facility] [place] [facility] [address] [id number], [place] [address]- 8275 Jan, [facility] [place] [facility] [address] [id number], [place] [address]- 6952 Jan, [facility] [place] [facility] [address] [id number], [place] [address]- 1789 Jan, [facility] [place] [facility] [address] [id number], [place] [address]- 5756 16 Dec, 2010 [facility] [place] [facility] [address] [id number] [place] [address]- 7604 Oct, [facility] [place] [facility] [address] [id number], [place] [address]- 7964 Mar, [facility] [place] [facility] [address] [id number], [place] [address]- 6005 Feb, [facility] [place] [facility] [address] [id number], [place] [address]- 1496 15 Feb, 2010 [facility] [id number], [place] [address]- 2620 May, [facility] [id number], [place] [address]- 3645 Apr, [facility] [id number], [place] [address]- 6719 Mar, [facility] [id number], [place] [address]- 1407 Jan, [facility] [id number] [place] [address]- 2121 Oct, [facility] [id number], [place] [address]- 9577 Jul, [facility] [id number], [place] [address]- 3047 Mar, [facility] [id number], [place] [address]- 3869 Feb, [facility] [id number], [place] [address]- 8304 Jan, IMMUNIZATIONS No Known Immunizations SOCIAL HISTORY Never Assessed REASON FOR VISIT high BS- wound PLAN OF CARE VITAL SIGNS MEDICATIONS Unknown [...]
--- OUTSIDE RECORDS SUMMARY | 2018-07-05 12:14 | XMS REPORT ---
Author Author KATHYA FISCHER Organization [facility] Address [address] [place] [address] Care Team Providers Care Straightener And Aligner Name Role Phone KATHYA FISCHER Unavailable PROBLEMS Type Condition ICD9-CM Code OQB51-GJ Code Onset Dates Condition Status SNOMED Code Problem Arthritis M19.90 Active 0603007 Problem 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 Active 02721135 Problem Polyneuropathy G62.9 Active 11369882 Problem Other male erectile dysfunction N52.8 Active 048411856 Problem Constipation K59.00 Active 36034064 Problem Type 2 diabetes mellitus with 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 E11.65 Active 347180210 Problem Controlled type 2 diabetes mellitus without complication, without long -term current use of insulin E11.9 Active 438668300 Problem halfway current use of insulin Z79.4 Active 897667731 Problem Neuropathy G62.9 Active 144237974 Problem Obstructive sleep apnea G47.33 Active 17468072 Problem Hypertension, benign I10 Active 95935290 Problem Uncontrolled type 2 diabetes mellitus without complication, without long-term current use of insulin E11.65 Active 646401221 Problem Stress incontinence of urine N39.3 Active 72474349 Problem Fibromyalgia M79.7 Active 400778990 ALLERGIES No Information ENCOUNTERS Encounter Location Date Diagnosis [place] [id number] [place] [address] 18555- 9294 Mar, [facility] [id number] [place] [address] 14696- 4279 Feb, [facility] [address] 19630- 3887 Feb, Fibromyalgia M79.7 and Uncontrolled type 2 diabetes mellitus without complication, without long-term current use of insulin E11.65 [facility] [address] [place] [address] 11718- 6577 Jan, [place] [id number] [place] [address] 55776- 4828 Jan, [facility] [address] 89078- 8244 Jan, Uncontrolled type 2 diabetes mellitus without complication, without long-term current use of insulin E11.65 [facility] [address] 51403- 1901 Jan, [facility] [address] 80611- 5780 Dec, Therapeutic drug monitoring Z51.81 and Controlled type 2 diabetes mellitus without complication, without long-term current use of insulin E11.9 [place] [id number] [place] [address] 36839- 0124 Dec, Renal insufficiency N28.9 [place] [address] 21265- 1258 Dec, [facility] [address] 22740- 4158 Dec, Dizziness R42 [place] [address] 79629- 0102 Dec, Dizziness R42 and Encounter for immunization Z23 [place] [id number] [place] [address] 60170- 1769 Dec, Therapeutic drug monitoring Z51.81 and Controlled type 2 diabetes mellitus without complication, without long-term current use of insulin E11.9 [facility] [id number] [place] [address] 19809- 2088 Dec, [place] [address] 58884- 3716 Dec, [facility] [id number] [place] [address] 19810- 6450 Dec, [facility] [address] 27047- 6782 Nov, [facility] [id number] [place] [address] 62537- 9309 Nov, Therapeutic drug monitoring Z51.81 [facility] [id number] [place] [address] 00922- 4157 Nov, [facility] [id number] [place] [address] 53210- 0626 Nov, Therapeutic drug monitoring Z51.81 ; Fibromyalgia M79.7 and Controlled type 2 diabetes mellitus without complication, without long-term current use of insulin E11.9 [facility] [id number] [place] [address] 56265- 6770 Nov, Type 2 diabetes mellitus with 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 E11.65 [facility] [id number] [place] [address] 57678- 3502 Nov, [facility] [id number] [place] [address] 50828- 1900 Nov, [facility] [id number] [place] [address] 67040- 9385 Nov, Type 2 diabetes mellitus with 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 E11.65 [facility] [id number] [place] [address] 07222- 0841 Nov, [facility] [id number] [place] [address] 40594- 5187 Nov, [facility] [id number] [place] [address] 02947- 8395 Nov, Constipation K59.00 [facility] [id number] [place] [address] 48154- 7862 Oct, Diabetes type 2, controlled E11.9 [facility] [id number] [place] [address] 85975- 6946 Oct, Type 2 diabetes mellitus with 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 E11.65 ; long term current use of insulin Z79.4 and Neuropathy G62.9 [facility] [id number] [place] [address] 00221- 5512 Oct, [facility] [address] [address]- 2406 Oct, [facility] [address] 1282 Oct, [facility] [address] [address]- 3176 Oct, [facility] [address] 6766 Oct, [facility] [address] [address]- 5121 Oct, [facility] [address] 5347 Oct, [facility] [address] [address]- 9923 Sep, [facility] [address] [address]- 9557 Sep, Uncontrolled type 2 diabetes mellitus without complication, without long-term current use of insulin E11.65 [facility] [address] [address]- 8056 Sep, Hypertension, benign I10 ; Fibromyalgia M79.7 ; Controlled type 2 diabetes mellitus without complication, without long-term current use of insulin E11.9 and Uncontrolled type 2 diabetes mellitus without complication, without long-term current use of insulin E11.65 [facility] [address] [address]- 4360 Sep, [facility] [address] [address]- 7784 Sep, Uncontrolled type 2 diabetes mellitus without complication, without long-term current use of insulin E11.65 [facility] [address] [address]- 3945 Sep, [facility] [id number] [place] [address] 89550- 9972 Sep, [facility] [id number] [place] [address] 40564- 9492 Sep, Uncontrolled type 2 diabetes mellitus without complication, without long-term current use of insulin E11.65 and Fibromyalgia M79.7 [facility] [address] 78543- 2928 August, [facility] [address] 87617- 5223 August, [facility] [address] 34079- 5020 August, [place] [address] 41188- 7643 August, Fibromyalgia M79.7 [facility] [address] 38639- 2447 Jul, Hypertension, benign I10 [facility] [address] 01383- 0556 Jul, Fibromyalgia M79.7 [facility] [id number] [place] [address] 89852- 4683 Jul, [facility] [id number] [place] [address] 60999- 3701 Jun, [facility] [id number] [place] [address] 65442- 6116 Jun, Hypertension, benign I10 ; Arthritis M19.90 ; long term current use 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 Z79.891 and Uncontrolled type 2 diabetes mellitus without complication, without long-term current use of insulin E11.65 [facility] [id number] [place] [address] 10404 -0383 Jun, Acute nasopharyngitis J00 and BMI 50.0-59.9, adult Z68.43 [facility] [address] 51301- 3426 Jun, Fibromyalgia M79.7 [facility] [address] [place] [address] 69317- 9156 May, [facility] [id number] [place] [address] 47793- 8116 May, Fibromyalgia M79.7 [facility] [id number] [place] [address] 25130- 7466 Apr, Fibromyalgia M79.7 [facility] [id number] [place] [address] 09220- 9275 Apr, [facility] [id number] [place] [address] 28335- 7124 Apr, [facility] [id number] [place] [address] 45633- 7383 Apr, Arthritis M19.90 [facility] [id number] [place] [address] 95400- 8439 Apr, Arthritis M19.90 [facility] [id number] [place] [address] 20328- 2174 Apr, Arthritis M19.90 and Controlled type 2 diabetes mellitus without complication, without long-term current use of insulin E11.9 [facility] [address] [place] [address] 52085- 6821 Apr, [facility] [id number] [place] [address] 49426 2546 Apr, Fibromyalgia M79.7 [facility] [address] [address]- 6176 Mar, [facility] [id number] [place] [address] 70516 2546 Mar, [facility] [address] [place] [address] 43991- 9205 Mar, Fibromyalgia M79.7 [facility] [id number] [place] [address] 50952- 6629 Feb, [facility] [id number] [place] [address] 51635- 2867 Feb, [facility] [id number] [place] [address] 47041- 7763 Feb, [facility] [address] 29573- 0345 Feb, Fibromyalgia M79.7 [facility] [id number] [place] [address] 80922- 1139 Feb, Diabetes type 2, uncontrolled E11.65 and Encounter for immunization Z23 [facility] [id number] [place] [address] 51010- 3217 Jan, [facility] [address] 52261- 8696 Jan, Fibromyalgia M79.7 [facility] [id number] [place] [address] 74637- 1802 Dec, [facility] [id number] [place] [address] 86273- 8964 Dec, Fibromyalgia M79.7 [facility] [id number] [place] [address] 35810- 2951 Nov, [facility] [id number] [place] [address] 03018- 6691 Nov, [facility] [id number] [place] [address] 23136- 8295 Nov, 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 and Polyneuropathy G62.9 [facility] [id number] [place] [address] 96376- 3480 Nov, [facility] [id number] [place] [address] 89508- 6375 Nov, [facility] [id number] [place] [address] 94546- 4104 Oct, Diabetes type 2, uncontrolled E11.65 [facility] [id number] [address]- 0321 Oct, Diabetes type 2, uncontrolled E11.65 ; Polyneuropathy G62.9 and Pain in right wrist M25.531 [facility] [id number] [place] [address] 26442- 9756 Oct, [facility] [id number] [place] [address] 39777- 5895 Oct, Pain in left shoulder M25.512 [facility] [id number] [place] [address] 73143- 2637 Sep, [facility] [id number] [place] [address] 53767- 3413 Sep, Pain in left shoulder M25.512 [facility] [id number] [place] [address] 84533- 3630 Sep, [facility] [id number] [place] [address] 73350- 4771 August, Pain in left shoulder M25.512 [facility] [id number] [address]- 6255 Jul, [facility] [id number] [address]- 3335 Jul, [facility] [id number] [place] [address] 58532- 2831 Jul, Pain in left shoulder M25.512 [facility] [id number] [address]- 3696 Jun, [facility] [id number] [place] [address] 16718611- 3726 Jun, [facility] [address], [place] [address]- 6455 Jun, Diabetes type 2, uncontrolled E11.65 ; Fibromyalgia M79.7 and Arthritis M19.90 [facility] [address], [place] [address] 2546 Jun, Pain in left shoulder M25.512 [facility] [address], [place] [address] 2546 May, [facility] [id number] [place] [address] 56150- 1266 May, Diabetes type 2, controlled E11.9 [facility] [id number] [place] [address] 05167 2546 17 May, 2016 [facility] [id number] [place] [address] 58482 2546 May, Uncontrolled type 2 diabetes mellitus without complication, without long-term current use of insulin E11.65 [facility] [id number] [place] [address] 38728- 2836 May, Pain in left shoulder M25.512 [facility] [address], [place] [address]- 4157 May, Diabetes type 2, controlled E11.9 and Uncontrolled type 2 diabetes mellitus without complication, without long-term current use of insulin E11.65 [facility] [address], [place] [address]- 0634 Apr, [facility] [address], [place] [address] 2546 Apr, [facility] [address], [place] [address] 2546 Mar, [facility] [id number] [place] [address] 36005 2546 Mar, [facility] [address], [place] [address] 2546 Mar, [facility] [address] [place] [address] 63086- 0189 Feb, [facility] [address] [id number] [place] [id number] Feb, Dental examination Z01.20 [facility] [address] [id number] [place] [address]- 6205 Jan, [facility] [address] [facility] [id number] [place] [address]- 5202 Dec, [facility] [address] [id number] [place] [address]- 2280 Dec, [facility] [address] [id number] [place] [address]- 4168 Dec, [facility] [address] [facility] [id number] [place] [address]- 2860 Dec, Diabetes type 2, controlled E11.9 [facility] [address] [facility] [id number] [place] [address]- 1508 Nov, [facility] [address] [id number] [place] [address]- 9289 Nov, [facility] [address] [place] [id number] [place] [address]- 0401 Nov, [facility] [address] [facility] [id number] [place] [address]- 3738 Nov, [facility] [address] [place] [id number] [place] [address]- 5854 Oct, [facility] [address] [facility] [id number] [address]- 5292 Oct, [facility] [address] [facility] [id number], [place] [address]- 6870 Oct, [facility] [address] [facility] [id number] [address]- 1399 Sep, [facility] [address] [facility] [id number], [place] [address]- 1519 Sep, Diabetes type 2, controlled E11.9 [facility] [address], [place] [address]- 9554 Sep, Diabetes type 2, controlled E11.9 [facility] [address] [place] [address] 79081- 6776 August, [facility] [id number] [place] [address] 64152- 8745 August, [facility] [id number] [place] [address] 12471- 4416 August, Type 2 diabetes mellitus without complication E11.9 and Pain in left shoulder M25.512 [facility] [id number] [place] [address] 69225- 1439 Jul, [facility] [id number] [place] [address] 91327- 2192 Jul, Diabetes type 2, controlled E11.9 and Hypertension, benign I10 [facility] [address], [place] [address]- 5153 Jun, [facility] [id number] [place] [address] 64121- 3421 Jun, [facility] [id number] [place] [address] 81596- 5200 Jun, Diabetes 250.00 [facility] [address] [place] [address] 07697- 8876 Jun, [facility] [address], [place] [address]- 2724 May, Diabetes type 2, uncontrolled E11.65 [facility] [id number] [place] [address], [place] [address] 2546 May, [facility] [address] [place] [address] 18209- 7573 Apr, Type 2 diabetes mellitus without complication E11.9 [facility] [id number] [address]- 9323 Apr, Encounter for immunization Z23 [facility] [id number] [place] [address], [place] [address]- 9714 Apr, [facility] [id number] [place] [address]- 9374 Mar, [facility] [id number] [place] [address], [place] [address]- 4462 Mar, [facility] [id number] [place] [address], [place] [address]- 4751 Mar, [facility] [id number] [place] [address], [place] [address]- 7807 Feb, [facility] [id number] [place] [address]- 5345 Jan, [facility] [id number] [place] [address] 22724- 8093 Jan, [facility] [address], [place] [address]- 4543 Jan, [facility] [address], [place] [address]- 6471 Dec, Diabetes 250.00 and COPD (chronic obstructive pulmonary disease) 496 [facility] [address], [place] [address]- 8615 Dec, [facility] [address], [place] [address]- 9513 Dec, [facility] [address], [place] [address]- 4435 Nov, [facility] [address], [place] [address]- 8703 Oct, Diabetes 250.00 [facility] [address] [place] [address]- 5825 Sep, [facility] [id number] [address]- 2006 Sep, [facility] [address], [place] [address]- 9201 Sep, [facility] [address] [address]- 4863 Sep, Diabetes 250.00 [facility] [address] [place] [address] 67406- 2528 Sep, [facility] [id number]- 7896 Sep, [facility] [id number] [place] [address] 618186- 8956 August, Hypertension, essential, benign 401.1 ; Coronary atherosclerosis of [place] coronary artery 414.01 and Diabetic neuropathy associated with type 2 diabetes mellitus 250.60 [facility] [address], [place] [address]- 0236 Jul, [facility] [address], [place] [address]- 0004 Jul, [facility] [id number] [address]- 8726 Jul, [facility] [address], [place] [address]- 1914 Jun, [facility] [address] [address]- 0869 Jun, [facility] [address], [place] [address]- 7052 Jun, [facility] [address], [place] [address]- 5307 Jun, [facility] [address], [place] [address]- 0416 Jun, [facility] [address] 4481 May, [facility] [place] [facility] [address] [id number] [place] [address]- 2269 May, 2014 [facility] [place] [facility] [address] [id number] [place] [address]- 9353 May, 2014 [facility] [place] [facility] [address] [id number] [place] 8684 May, 2014 [facility] [place] [facility] [address] [id number] [place] [address]- 6715 May, 2014 [facility] [place] [facility] [address] [id number] [place] [address]- 8417 May, [facility] [place] [facility] [address] [id number] [place] [address]- 0594 May, 2014 [facility] [place] [facility] [address] [facility] [id number] [place] [address] Apr, [facility] [place] [facility] [address] [id number] [place] [address] Apr, [facility] [place] [facility] [address] [id number] [place] [address] Apr, [facility] [place] [facility] [address] [facility] [id number] [place] [address] Apr, [facility] [place] [facility] [address] [facility] [id number] [place] [address] Mar, [facility] [place] [facility] [address] [id number] [place] [address] Mar, [facility] [place] [facility] [address] [id number] [place] [address] Mar, [facility] [place] [facility] [address] [facility] [id number] [place] [address] Mar, [facility] [place] [facility] [address] [facility] [id number] [place] [address] Feb, [facility] [place] [facility] [address] [id number] [place] [address] Feb, [facility] [place] [facility] [address] [id number] [place] [address] Feb, [facility] [place] [facility] [address] [id number] [place] [address] Feb, [facility] [place] [facility] [address] [id number] [place] [address] Feb, [facility] [place] [facility] [address] [id number] [place] [address] Feb, [facility] [place] [facility] [address] [id number] [place] [address] Feb, [facility] [place] [facility] [address] [id number] [place] [address] Jan, [facility] [place] [facility] [address] [id number] [place] [address] Jan, [facility] [place] [facility] [address] [id number] [place] [address] Dec, [facility] [place] [facility] [address] [id number] [place] [address] Dec, [facility] [place] [facility] [address] [id number] [place] [address] Dec, [facility] [place] [facility] [address] [id number] [place] [address]45 10 Dec, 2013 [facility] [place] [facility] [address] [id number] [place] [address]40 04 Dec, 2013 [facility] [place] [facility] [address] [id number] [place] [address]- 254 04 Dec, 2013 [facility] [place] [facility] [address] [id number] [place] [address] 8241 Dec, 2013 [facility] [place] [facility] [address] [id number] [place] [address] 8[address] Dec, [facility] [place] [facility] [address] [id number] [place] [address] 5351 Nov, [facility] [place] [facility] [address] [id number] [place] [address] 6465 Nov, [facility] [place] [facility] [address] [id number] [place] [address] 5317 Nov, [facility] [place] [facility] [address] [id number] [place] [address] 2129 Nov, [facility] [place] [facility] [address] [id number] [place] [address] 7435 Oct, [facility] [place] [facility] [address] [id number] [place] [address]- 3636 Oct, [facility] [place] [facility] [address] [id number] [place] [address]- 0663 Oct, [facility] [place] [facility] [address] [id number] [place] [address]- 1298 Oct, [facility] [place] [facility] [address] [id number] [place] [address]- 9127 Oct, [facility] [place] [facility] [address] [id number] [place] [address]- 4999 Oct, [facility] [place] [facility] [address] [id number] [place] [address]- 1657 Oct, [facility] [place] [facility] [address] [id number] [place] [address]- 0671 Oct, [facility] [place] [facility] [address] [id number] [place] [address]- 7218 Sep, [facility] [place] [facility] [address] [id number] [place] [address]- 5585 Sep, [facility] [place] [facility] [address] [id number] [place] [address]- 2979 August, [facility] [place] [facility] [address] [id number], [place] [address] August, [facility] [address] [id number] [place] [address]- 6515 Jul, [facility] [place] [facility] [address] [id number] [place] [address]- 3680 Jul, [facility] [place] [facility] [address] [id number] [place] [address]- 0140 Jul, [facility] [place] [facility] [address] [id number] [place] [address]- 4942 Jul, [facility] [place] [facility] [address] [id number] [place] [address]- 0031 Jul, [facility] [place] [facility] [address] [id number] [place] [address]- 7585 Jul, [facility] [place] [facility] [address] [id number] [place] [address]- 8459 Jul, [facility] [place] [facility] [address] [id number] [place] [address]- 3952 Jul, [facility] [place] [facility] [address] [id number] [place] [address]- 9404 Jun, [facility] [place] [facility] [address] [id number] [place] [address]- 9055 Jun, [facility] [place] [facility] [address] [id number] [place] [address]- 2232 Jun, [facility] [place] [facility] [address] [id number] [place] [address]- 6774 Jun, [facility] [place] [facility] [address] [id number] [place] [address]- 1038 May, [facility] [place] [facility] [address] [id number] [place] [address]- 1527 May, [facility] [place] [facility] [address] [id number] [place] [address]- 0272 Apr, [facility] [place] [facility] [address] [id number] [place] [address]- 5325 Apr, [facility] [place] [facility] [address] [id number] [place] [address]- 2384 Mar, [facility] [place] [facility] [address] [id number] [place] [address]- 4451 Mar, [facility] [place] [facility] [address] [id number] [place] [address]- 2502 Mar, [facility] [place] [facility] [address] [id number] [place] [address]- 1843 Mar, [facility] [place] [facility] [address] [id number] [place] [address]- 0206 Mar, [facility] [place] [facility] [address] [id number] [place] [address]- 1230 Mar, [facility] [place] [facility] [address] [id number] [place] [address]- 8990 Feb, [facility] [place] [facility] [address] [id number] [place] [address]- 8459 Feb, [facility] [place] [facility] [address] [id number] [place] [address]- 8899 Feb, [facility] [place] [facility] [address] [id number] [place] [address]- 6065 Feb, [facility] [place] [facility] [address] [id number] [place] [address]- 8085 Feb, [facility] [place] [facility] [address] [id number] [place] [address]- 6402 Feb, [facility] [place] [facility] [address] [id number] [place] [address]- 9948 Feb, [facility] [place] [facility] [address] [id number] [place] [address]- 4171 Feb, [facility] [place] [facility] [address] [id number] [place] [address]- 4532 15 Jan, 2013 [facility] [place] [facility] [address] [id number] [place] [address]- 8343 15 Jan, 2013 [facility] [place] [facility] [address] [id number] [place] [address]- 5273 14 Jan, 2013 [facility] [place] [facility] [address] [id number] [place] [address]- 9197 14 Jan, 2013 [facility] [place] [facility] [address] [id number] [place] [address]- 2830 18 Dec, 2012 [facility] [place] [facility] [address] [id number] [place] [address]- 2982 13 Dec, 2012 [facility] [place] [facility] [address] [id number] [place] [address]- 7415 2012 [facility] [place] [facility] [address] [id number] [place] [address]- 0279 Nov, [facility] [place] [facility] [address] [id number], [place] [address] 1436 Nov, [facility] [place] [facility] [address] [id number] [place] [address]- 7132 16 Oct, 2012 [facility] [place] [facility] [address] [id number], [place] [address] 0153 05 Oct, 2012 [facility] [place] [facility] [address] [id number], [place] [address] 0071 Oct, [facility] [place] [facility] [address] [id number], [place] [address]- 9113 28 Sep, 2012 [facility] [place] [facility] [address] [id number] [place] [address]- 7269 Sep, [facility] [place] [facility] [address] [id number], [place] [address]- 0877 18 Sep, 2012 [facility] [place] [facility] [address] [id number], [place] [address]- 4798 Sep, [facility] [place] [facility] [address] [id number] [place] [address]- 1791 Sep, [facility] [address] [id number] [place] [address]- 1352 Sep, [facility] [address] [id number] [place] [address]- 7047 August, [facility] [address] [id number] [place] [address]- 2642 August, [facility] [address] [id number] [place] [address]- 8223 August, [facility] [address] [id number] [place] [address]- 3141 August, [facility] [address] [id number] [place] [address]- 0330 August, [facility] [address] [id number] [place] [address]- 3468 August, [facility] [address] [id number] [place] [address]- 6040 August, [facility] [address] [id number] [place] [address]- 4320 Jul, [facility] [address] [id number] [place] [address]- 5409 Jul, [facility] [address] [id number] [place] [address]- 9300 Jun, [facility] [address] [id number] [place] [address]- 6704 Jun, [facility] [place] [facility] [address] [id number] [place] [address]- 4382 May, [facility] [address] [id number] [place] [address]- 7478 May, [facility] [address] [id number] [place] [address]- 3009 Apr, [facility] [place] [facility] [address] [id number] [place] [address]- 7438 Mar, [facility] [place] [facility] [address] [id number] [place] [address]- 9506 Mar, [facility] [place] [facility] [address] [id number] [place] [address]- 8996 Mar, [facility] [place] [facility] [address] [id number] [place] [address]- 0152 Mar, [facility] [place] [facility] [address] [id number] [place] [address]- 2682 Mar, [facility] [place] [facility] [address] [id number] [place] [address]- 2027 Mar, [facility] [place] [facility] [address] [facility] [id number] [place] [address]- 6912 Feb, [facility] [place] [facility] [address] [id number], [place] [address]- 2241 Feb, [facility] [place] [facility] [address] [id number] [place] [address]- 5217 Feb, [facility] [place] [facility] [address] [facility] [id number], [place] [address]- 4492 Feb, [facility] [place] [facility] [address] [facility] [id number], [place] [address]- 0927 Feb, [facility] [place] [facility] [address] [id number], [place] [address]- 7087 Feb, [facility] [place] [facility] [address] [id number], [place] [address]- 4538 Feb, [facility] [place] [facility] [address] [id number], [place] [address]- 0163 Feb, [facility] [place] [facility] [address] [facility] [id number], [place] [address]- 4844 Jan, [facility] [place] [facility] [address] [id number], [place] [address]- 0454 Jan, [facility] [place] [facility] [address] [id number] [place] [address]- 7035 28 Dec, 2011 [facility] [place] [facility] [address] [id number] [place] [address]- 7396 19 Dec, 2011 [facility] [place] [facility] [address] [id number] [place] [address]- 4906 18 Dec, 2011 [facility] [place] [facility] [address] [id number] [place] [address]- 9073 18 Dec, 2011 [facility] [place] [facility] [address] [id number] [place] [address]- 5523 04 Dec, 2011 [facility] [place] [facility] [address] [id number] [place] [address]- 4956 Nov, [facility] [place] [facility] [address] [id number] [place] [address]- 4318 Oct, [facility] [place] [facility] [address] [facility] [id number] [place] [address]- 1396 Oct, [facility] [place] [facility] [address] [facility] [id number] [place] [address]- 4809 Sep, [facility] [place] [facility] [address] [facility] [id number] [place] [address]- 7809 Sep, [facility] [place] [facility] [address] [facility] [id number], [place] [address]- 5231 Sep, [facility] [place] [facility] [address] [id number], [place] [address]- 6069 Sep, [facility] [place] [facility] [address] [id number] [place] [address]- 4910 Sep, [facility] [place] [facility] [address] [facility] [id number] [place] [address]- 7974 Sep, [facility] [place] [facility] [address] [facility] [id number] [place] [address]- 7607 Sep, [facility] [place] [facility] [address] [id number] [place] [address]- 9941 Sep, [facility] [place] [facility] [address] [id number] [place] [address]- 8364 August, [facility] [place] [facility] [address] [id number] [place] [address]- 2206 August, [facility] [place] [facility] [address] [id number] [place] [address]- 9687 August, [facility] [place] [facility] [address] [id number] [place] [address]- 8991 Jul, [facility] [place] [facility] [address] [id number] [place] [address]- 9664 Jul, [facility] [place] [facility] [address] [id number] [place] [address]- 2583 Jun, [facility] [place] [facility] [address] [id number] [place] [address]- 2412 Jun, [facility] [place] [facility] [address] [id number] [place] [address]- 3937 Jun, [facility] [place] [facility] [address] [id number] [place] [address]- 7708 Jun, [facility] [place] [facility] [address] [id number] [place] [address]- 5317 May, [facility] [place] [facility] [address] [id number] [place] [address]- 4810 May, [facility] [place] [facility] [address] [id number] [place] [address]- 8517 16 Apr, 2011 [facility] [place] [facility] [address] [id number] [place] [address]- 5987 Apr, [facility] [place] [facility] [address] [id number] [place] [address]- 2566 04 Apr, 2011 [facility] [place] [facility] [address] [id number] [place] [address]- 5282 14 Mar, 2011 [facility] [place] [facility] [address] [id number] [place] [address]- 2543 09 Mar, 2011 [facility] [place] [facility] [address] [id number] [place] [address]- 9746 Mar, [facility] [place] [facility] [address] [facility] [id number] [place] [address]- 0834 Feb, [facility] [place] [facility] [address] [id number] [place] [address]- 2064 Feb, [facility] [place] [facility] [address] [id number] [place] [address]- 8052 Feb, [facility] [place] [facility] [address] [id number] [place] [address]- 5435 Feb, [facility] [place] [facility] [address] [id number] [place] [address]- 8268 Jan, [facility] [place] [facility] [address] [id number], [place] [address]- 5849 14 Jan, 2011 [facility] [place] [facility] [address] [id number], [place] [address]- 2992 Jan, [facility] [place] [facility] [address] [facility] [id number], [place] [address]- 6309 16 Dec, 2010 [facility] [place] [facility] [address] [id number], [place] [address]- 5103 Oct, [facility] [place] [facility] [address] [id number], [place] [address]- 8272 Mar, [facility] [place] [facility] [address] [id number] [place] [address]- 2955 Feb, [facility] [place] [facility] [address] [id number], [place] [address]- 9335 15 Feb, 2010 [facility] [place] [facility] [address] [facility] [id number], [place] [address]- 3743 16 May, 2009 [facility] [place] [facility] [address] [id number], [place] [address]- 2912 Apr, [facility] [id number] [address] Mar, [facility] [id number], [place] [address]- 5869 Jan, [facility] [id number], [place] [address]- 0213 Oct, [facility] [id number], [place] [address]- 1217 Jul, [facility] [id number], [place] [address]- 8426 Mar, [facility] [id number], [place] [address]- 5129 Feb, [facility] [id number], [place] [address]- 1706 Jan, IMMUNIZATIONS No Known Immunizations SOCIAL HISTORY Never Assessed REASON FOR VISIT Requests return call PLAN OF CARE VITAL SIGNS MEDICATIONS Unknown [...] History fibromyalgia Medical History obesity Medical History meganons neuroma (Dr. Masters) Surgical History tonsillectomy Hospitalization History surgeries Hospitalization History falls 11/01/2017
--- OUTSIDE RECORDS SUMMARY | 2018-07-05 12:14 | XMS REPORT ---
Author Author KATHYA FISCHER Organization [facility] Address [address] [place] [address] Care Team Providers Care Nursery Hand Name Role Phone KATHYA FISCHER Unavailable PROBLEMS Type Condition ICD9-CM Code SPV35-[place] Code Onset Dates Condition Status SNOMED Code Problem Arthritis M19.90 Active 4756916 Problem 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 Active 78266657 Problem Polyneuropathy G62.9 Active 11188688 Problem Other male erectile dysfunction N52.8 Active 021818512 Problem Constipation K59.00 Active 21547139 Problem Type 2 diabetes mellitus with 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 E11.65 Active 625770724 Problem Controlled type 2 diabetes mellitus without complication, without long -term current use of insulin E11.9 Active 900614591 Problem jail current use of insulin Z79.4 Active 009638020 Problem Neuropathy G62.9 Active 994885797 Problem Obstructive sleep apnea G47.33 Active 88009989 Problem Hypertension, benign I10 Active 87515154 Problem Uncontrolled type 2 diabetes mellitus without complication, without long-term current use of insulin E11.65 Active 861825068 Problem Stress incontinence of urine N39.3 Active 75057640 Problem Fibromyalgia M79.7 Active 145670883 ALLERGIES No Information ENCOUNTERS Encounter Location Date Diagnosis [facility] [id number] [place] [address] 61547- 8676 Mar, [facility] [id number] [place] [address] 15743- 1188 Feb, [facility] [id number] [place] [address] 68454- 9050 Feb, [facility] [id number] [place] [address] 35072- 9248 Feb, [facility] [id number] [place] [address] 97913- 0941 Feb, Fibromyalgia M79.7 and Uncontrolled type 2 diabetes mellitus without complication, without long-term current use of insulin E11.65 [facility] [id number] [place] [address] 74856- 5486 Jan, [facility] [id number] [place] [address] 09610 2546 Jan, [facility] [address] 39450 2546 Jan, Uncontrolled type 2 diabetes mellitus without complication, without long-term current use of insulin E11.65 [facility] [id number] [place] [address] 84317- 5396 Jan, [facility] [address] 10996- 1182 Dec, Therapeutic drug monitoring Z51.81 and Controlled type 2 diabetes mellitus without complication, without long-term current use of insulin E11.9 [place] [id number] [place] [address] 83758- 0846 Dec, Renal insufficiency N28.9 [facility] [address] 70227 2546 Dec, [facility] [id number] [place] [address] 97062 2546 Dec, Dizziness R42 [place] [address] 38955 2546 Dec, Dizziness R42 and Encounter for immunization Z23 [place] [id number] [place] [address] 16569 2546 Dec, Therapeutic drug monitoring Z51.81 and Controlled type 2 diabetes mellitus without complication, without long-term current use of insulin E11.9 [facility] [id number] [place] [address] 49872 2546 Dec, [facility] [address] 26276- 6441 Dec, [facility] [id number] [address]- 6972 Dec, [facility] [id number] [place] [address] 49497- 5685 Nov, [facility] [id number] [place] [address] 14775- 4095 Nov, Therapeutic drug monitoring Z51.81 [facility] [id number] [place] [address] 10762- 2881 Nov, [facility] [id number] [place] [address] 56564- 2075 Nov, Therapeutic drug monitoring Z51.81 ; Fibromyalgia M79.7 and Controlled type 2 diabetes mellitus without complication, without long-term current use of insulin E11.9 [facility] [id number] [place] [address] 94058- 1110 Nov, Type 2 diabetes mellitus with 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 E11.65 [facility] [id number] [place] [address] 89741- 5654 Nov, [facility] [id number] [place] [address] 52362- 1139 Nov, [facility] [id number] [place] [address] 20088- 1897 Nov, Type 2 diabetes mellitus with 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 E11.65 [facility] [id number] [place] [address] 39640- 6098 Nov, [facility] [id number] [place] [address] 20389- 8095 Nov, [facility] [id number] [place] [address] 58447- 0177 Nov, Constipation K59.00 [facility] [address] [address]- 6793 Oct, Diabetes type 2, controlled E11.9 [facility] [id number] [address]- 1707 Oct, Type 2 diabetes mellitus with 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 E11.65 ; jail current use of insulin Z79.4 and Neuropathy G62.9 [facility] [address] [address]- 3218 Oct, [facility] [id number] [place] [address] 06884- 0325 Oct, [facility] [id number] [place] [address] 85885- 0418 Oct, [facility] [id number] [place] [address] 00525- 9509 Oct, [facility] [id number] [place] [address] 23308- 3906 Oct, [facility] [id number] [place] [address] 33403- 9541 Oct, [facility] [id number] [address]- 2838 Oct, [facility] [id number] [place] [address] 55309- 5461 Sep, [facility] [address] [address]- 8426 Sep, Uncontrolled type 2 diabetes mellitus without complication, without long-term current use of insulin E11.65 [facility] [address] [address]- 8045 Sep, Hypertension, benign I10 ; Fibromyalgia M79.7 ; Controlled type 2 diabetes mellitus without complication, without long-term current use of insulin E11.9 and Uncontrolled type 2 diabetes mellitus without complication, without long-term current use of insulin E11.65 [facility] [address] [address]- 6126 Sep, [facility] [id number] [place] [address] 48563- 8927 Sep, Uncontrolled type 2 diabetes mellitus without complication, without long-term current use of insulin E11.65 [facility] [address] [address]- 7177 Sep, [facility] [id number] [place] [address] 46618- 3871 Sep, [facility] [id number] [place] [address] 70147- 4935 Sep, Uncontrolled type 2 diabetes mellitus without complication, without long-term current use of insulin E11.65 and Fibromyalgia M79.7 [facility] [id number] [place] [address] 65303- 2845 August, [facility] [id number] [place] [address] 80923- 7947 August, [facility] [id number] [place] [address] 94587- 6707 August, [facility] [id number] [place] [address] 81909- 3566 August, Fibromyalgia M79.7 [facility] [id number] [place] [address] 07432- 2780 Jul, Hypertension, benign I10 [facility] [id number] [place] [address] 44278- 6693 Jul, Fibromyalgia M79.7 [facility] [id number] [place] [address] 57930- 3338 Jul, [facility] [address] [address]- 2091 Jun, [facility] [id number] [place] [address] 59950- 1826 Jun, Hypertension, benign I10 ; Arthritis M19.90 ; jail current use 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 Z79.891 and Uncontrolled type 2 diabetes mellitus without complication, without long-term current use of insulin E11.65 [facility] [id number] [place] [address] 24848 -6593 Jun, Acute nasopharyngitis J00 and BMI 50.0-59.9, adult Z68.43 [facility] [id number] [place] [address] 84135- 8510 Jun, Fibromyalgia M79.7 [facility] [id number] [place] [address] 95850- 1256 May, [facility] [address] 13783- 2436 May, Fibromyalgia M79.7 [facility] [address] 63468- 1356 Apr, Fibromyalgia M79.7 [facility] [id number] [place] [address] 53535- 9418 Apr, [facility] [address] 31956- 6398 Apr, [facility] [id number] [place] [address] 43324- 0218 Apr, Arthritis M19.90 [facility] [id number] [place] [address] 70330- 4269 Apr, Arthritis M19.90 [facility] [id number] [place] [address] 35149- 8851 Apr, Arthritis M19.90 and Controlled type 2 diabetes mellitus without complication, without long-term current use of insulin E11.9 [facility] [id number] [place] [address] 96146- 0422 Apr, [facility] [address] 17071- 1346 Apr, Fibromyalgia M79.7 [facility] [id number] [place] [address] 79746- 0824 Mar, [facility] [address] [place] [address]- 9648 Mar, [facility] [address] 27672- 6927 Mar, Fibromyalgia M79.7 [facility] [id number] [place] [address] 63196- 7800 Feb, [facility] [address] 33954- 5836 Feb, [facility] [address] 40704- 9190 Feb, [facility] [address] 54007- 7463 Feb, Fibromyalgia M79.7 [facility] [address] 70257- 3878 Feb, Diabetes type 2, uncontrolled E11.65 and Encounter for immunization Z23 [facility] [id number] [place] [address] 91674- 7034 Jan, [facility] [id number] [place] [address] 71094- 6187 Jan, Fibromyalgia M79.7 [facility] [id number] [place] [address] 93766- 5988 Dec, [facility] [id number] [place] [address] 33860- 8994 Dec, Fibromyalgia M79.7 [facility] [id number] [place] [address] 74659- 7712 Nov, [facility] [id number] [place] [address] 44786- 2532 Nov, [facility] [id number] [place] [address] 12668- 8106 Nov, 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 and Polyneuropathy G62.9 [facility] [address] 05403- 0366 Nov, [facility] [address] [facility] [id number] [address]- 9128 Nov, [facility] [id number] [place] [address] 899486- 0081 Oct, Diabetes type 2, uncontrolled E11.65 [facility] [id number] [place] [address] 609642- 4270 Oct, Diabetes type 2, uncontrolled E11.65 ; Polyneuropathy G62.9 and Pain in right wrist M25.531 [facility] [id number] [place] [address] 34876- 2726 Oct, [facility] [id number] [place] [address] 07503- 2622 Oct, Pain in left shoulder M25.512 [facility] [id number] [place] [address] 95486- 5468 Sep, [facility] [id number] [address]- 3533 Sep, Pain in left shoulder M25.512 [facility] [id number] [place] [address] 10010- 0856 Sep, [facility] [id number] [address]- 6444 August, Pain in left shoulder M25.512 [facility] [address] [address]- 2794 Jul, [facility] [address] [address]- 1774 Jul, [facility] [id number] [place] [address] 13586- 1225 Jul, Pain in left shoulder M25.512 [facility] [address] [address]- 2975 Jun, [facility] [id number] [address]- 9328 17 Jun, 2016 [facility] [id number] [place] [address] 89638- 5814 Jun, Diabetes type 2, uncontrolled E11.65 ; Fibromyalgia M79.7 and Arthritis M19.90 [facility] [id number] [place] [address] 06696- 4271 Jun, Pain in left shoulder M25.512 [facility] [id number] [place] [address] 68252- 5064 May, [facility] [id number] [place] [address] 04525- 3460 May, Diabetes type 2, controlled E11.9 [facility] [id number] [place] [address] 43805- 6668 17 May, 2016 [facility] [id number] [place] [address] 31469- 9790 May, Uncontrolled type 2 diabetes mellitus without complication, without long-term current use of insulin E11.65 [facility] [id number] [place] [address] 66837- 5556 15 May, 2016 Pain in left shoulder M25.512 [facility] [id number] [place] [address] 79404- 0061 May, Diabetes type 2, controlled E11.9 and Uncontrolled type 2 diabetes mellitus without complication, without long-term current use of insulin E11.65 [facility] [address] [address]- 4653 Apr, [facility] [id number] [place] [address] 05032- 9756 Apr, [facility] [address] [address]- 8171 Mar, [facility] [id number] [place] [address] 33152- 4308 Mar, [facility] [address] [id number] [place] [address]- 8847 Mar, [facility] [address] [id number] [place] [address]- 5937 Feb, [facility] [address] [id number] [place] [id number] Feb, Dental examination Z01.20 [facility] [address] [id number] [place] [address]- 3466 Jan, [facility] [address] [id number] [place] [address]- 6445 Dec, [facility] [address] [id number] [place] [address]- 4701 Dec, [facility] [address] [id number] [place] [address]- 7293 Dec, [facility] [address] [id number] [place] [address]- 0244 Dec, Diabetes type 2, controlled E11.9 [facility] [address] [id number] [place] [address]- 1611 Nov, [facility] [address] [id number] [place] [address]- 1198 Nov, [facility] [address] [id number] [place] [address]- 5244 Nov, [facility] [address] [id number] [place] [address]- 0931 Nov, [facility] [address] [id number] [place] [address]- 6040 Oct, [facility] [address] [id number] [place] [address]- 0788 Oct, [facility] [address] [id number] [place] [address]- 8709 Oct, [facility] [address] [address]- 6464 Sep, [facility] [id number] [place] [address] 28631- 1226 Sep, Diabetes type 2, controlled E11.9 [facility] [id number] [place] [address]- 6756 Sep, Diabetes type 2, controlled E11.9 [facility] [id number] [address]- 7839 August, [facility] [id number] [place] [address] 57911- 7650 August, [facility] [id number] [place] [address] 59068- 2528 August, Type 2 diabetes mellitus without complication E11.9 and Pain in left shoulder M25.512 [facility] [id number] [place] [address] 59785- 6761 Jul, [facility] [id number] [place] [address] 26558- 3049 Jul, Diabetes type 2, controlled E11.9 and Hypertension, benign I10 [facility] [address] [address]- 4066 Jun, [facility] [address] [address]- 4526 Jun, [facility] [address] [address]- 2547 Jun, Diabetes 250.00 [facility] [id number] [place] [address] 2546 Jun, [facility] [address] [address]- 2547 May, Diabetes type 2, uncontrolled E11.65 [facility] [id number] [place] [address] 96602- 8513 May, [facility] [id number] [place] [address] 55168- 5207 Apr, Type 2 diabetes mellitus without complication E11.9 [facility] [id number] [place] [address] 09831- 1730 Apr, Encounter for immunization Z23 [facility] [address] 66925- 1433 Apr, [facility] [address] 93823- 5029 Mar, [facility] [address] 32750- 1962 Mar, [facility] [id number] [place] [address] 05422- 4975 Mar, [facility] [address] 31475- 2856 Feb, [facility] [id number] [place] [address] 20913- 1812 Jan, [facility] [id number] [place] [address] 53209- 3731 Jan, [facility] [id number] [place] [address] 02826- 1531 Jan, [facility] [id number] [place] [address] 20080- 1129 Dec, Diabetes 250.00 and COPD (chronic obstructive pulmonary disease) 496 [facility] [id number] [place] [address] 37324- 9810 Dec, [facility] [id number] [place] [address] 34027- 2089 Dec, [facility] [id number] [place] [address] 71048- 5530 Nov, [facility] [address] [place] [address]- 9111 Oct, Diabetes 250.00 [facility] [address] [address]- 0697 Sep, [facility] [id number] [address] Sep, [facility] [id number] [place] [address]- 5882 Sep, [facility] [id number] [place] [address]278- 9065 Sep, Diabetes 250.00 [facility] [id number] [place] [address] 005889- 0693 Sep, [facility] [id number] [place] [address] 68938- 7941 Sep, [facility] [id number] [place] [address] 35067- 4701 August, Hypertension, essential, benign 401.1 ; Coronary atherosclerosis of [place] coronary artery 414.01 and Diabetic neuropathy associated with type 2 diabetes mellitus 250.60 [facility] [id number] [address] Jul, [facility] [id number] [address] Jul, [facility] [id number] [address] Jul, [facility] [id number] [address] Jun, [facility] [id number] [address] [address] Jun, [facility] [id number] [address] [address] Jun, [facility] [id number] [address] [address] Jun, [facility] [place] [facility] [address] [id number] [place] [address] Jun, [facility] [place] [facility] [address] [id number] [place] [address]- 0679 May, [facility] [place] [facility] [address] [id number] [place] [address] May, [facility] [place] [facility] [address] [id number] [place] [address] May, 2014 [facility] [place] [facility] [address] [id number] [place] [address] May, [facility] [place] [facility] [address] [id number] [place] [address]- [address]83 May, [facility] [place] [facility] [address] [id number] [place] [address]- [address] May, [facility] [place] [facility] [address] [id number] [place] [address]- 9940 May, [facility] [place] [facility] [address] [id number] [place] [address]- 9449 Apr, [facility] [place] [facility] [address] [id number] [place] [address]- 3948 Apr, [facility] [place] [facility] [address] [facility] [id number] [place] [address]- [address] Apr, [facility] [place] [facility] [address] [id number] [place] [address]- [address] Apr, [facility] [place] [facility] [address] [id number] [place] [address]798 Mar, [facility] [place] [facility] [address] [facility] [id number] [place] [address]- [address] Mar, [facility] [place] [facility] [address] [facility] [id number] [place] [address]- 7040 Mar, [facility] [place] [facility] [address] [id number] [place] [address]- [address] Mar, [facility] [place] [facility] [address] [id number] [place] [address] Feb, [facility] [place] [facility] [address] [id number] [place] [address] Feb, [facility] [place] [facility] [address] [id number] [place] [address] 6[address] Feb, [facility] [place] [facility] [address] [id number] [place] [address] 6[address] Feb, [facility] [place] [facility] [address] [id number] [place] [address] 9[address] Feb, [facility] [place] [facility] [address] [id number] [place] [address] 4797 Feb, [facility] [place] [facility] [address] [id number] [place] [address]- 7926 Feb, [facility] [place] [facility] [address] [id number] [place] [address] 8386 Jan, [facility] [place] [facility] [address] [id number] [place] [address]- 5300 Jan, [facility] [place] [facility] [address] [id number] [place] [address]- 7151 Dec, [facility] [place] [facility] [address] [id number] [place] [address]- 2547 Dec, [facility] [place] [facility] [address] [id number] [place] [address]- 2541 10 Dec, 2013 [facility] [place] [facility] [address] [id number] [place] [address]- 2540 10 Dec, 2013 [facility] [place] [facility] [address] [id number] [place] [address]- 5166 Dec, [facility] [place] [facility] [address] [id number] [place] [address] 4070 Dec, [facility] [place] [facility] [address] [id number] [place] [address]- 6980 Dec, [facility] [place] [facility] [address] [id number] [place] [address]- 2818 Dec, [facility] [place] [facility] [address] [id number] [place] [address]- 1559 Nov, [facility] [place] [facility] [address] [id number] [place] [address]- 4725 Nov, [facility] [place] [facility] [address] [id number] [place] [address]- 1565 Nov, [facility] [place] [facility] [address] [id number] [place] [address]- 1374 Nov, [facility] [place] [facility] [address] [id number] [place] [address]- 9538 Oct, [facility] [place] [facility] [address] [id number] [place] [address] Oct, [facility] [place] [facility] [address] [id number] [place] [address]- 5536 Oct, [facility] [place] [facility] [address] [id number] [place] [address]- 6052 Oct, [facility] [place] [facility] [address] [id number] [place] [address]- 5696 Oct, [facility] [place] [facility] [address] [id number] [place] [address]- 4037 Oct, [facility] [place] [facility] [address] [id number] [place] [address]- 8658 Oct, [facility] [place] [facility] [address] [id number] [place] [address]- 9054 Oct, [facility] [place] [facility] [address] [id number] [place] [address]- 4429 Sep, [facility] [place] [facility] [address] [id number], [place] [address] Sep, [facility] [place] [facility] [address] [id number] [place] [address]- 0418 August, [facility] [place] [facility] [address] [id number] [place] [address]- 0019 August, [facility] [place] [facility] [address] [id number] [place] [address]- 6037 Jul, [facility] [place] [facility] [address] [id number] [place] [address]- 9008 Jul, [facility] [place] [facility] [address] [id number] [place] [address]- 4064 Jul, [facility] [place] [facility] [address] [id number] [place] [address]- 5907 Jul, [facility] [place] [facility] [address] [id number] [place] [address]- 7223 Jul, [facility] [place] [facility] [address] [id number] [place] [address]- 5832 Jul, [facility] [place] [facility] [address] [id number] [place] [address]- 0944 Jul, [facility] [place] [facility] [address] [id number] [place] [address]- 4355 Jul, [facility] [place] [facility] [address] [id number] [place] [address]- 4450 Jun, [facility] [place] [facility] [address] [id number] [place] [address] Jun, [facility] [place] [facility] [address] [id number] [place] [address]- 0205 Jun, [facility] [place] [facility] [address] [id number] [place] [address]- 6621 Jun, [facility] [place] [facility] [address] [id number] [place] [address]- 5450 May, [facility] [place] [facility] [address] [id number] [place] [address]- 9369 18 May, 2013 [facility] [place] [facility] [address] [id number] [place] [address]- 1192 Apr, [facility] [place] [facility] [address] [id number] [place] [address]- 5512 Apr, [facility] [place] [facility] [address] [id number] [place] [address]- 3264 Mar, [facility] [place] [facility] [address] [id number] [place] [address]- 6565 Mar, [facility] [place] [facility] [address] [id number] [place] [address]- 0251 Mar, [facility] [place] [facility] [address] [id number] [place] [address]- 6033 Mar, [facility] [place] [facility] [address] [id number] [place] [address]- 9370 Mar, [facility] [place] [facility] [address] [id number] [place] [address]- 9630 Mar, [facility] [place] [facility] [address] [id number] [place] [address]- 3365 Feb, [facility] [place] [facility] [address] [id number] [place] [address]- 9519 Feb, [facility] [place] [facility] [address] [id number] [place] [address]- 7213 Feb, [facility] [place] [facility] [address] [id number] [place] [address]- 8865 Feb, [facility] [place] [facility] [address] [id number] [place] [address]- 6430 Feb, [facility] [place] [facility] [address] [id number] [place] [address]- 7030 Feb, [facility] [place] [facility] [address] [id number] [place] [address]- 6654 Feb, [facility] [place] [facility] [address] [id number] [place] [address]- 2282 12 Feb, 2013 [facility] [place] [facility] [address] [id number] [place] [address]- 6949 15 Jan, 2013 [facility] [place] [facility] [address] [id number] [place] [address]- 4927 15 Jan, 2013 [facility] [place] [facility] [address] [id number] [place] [address]- 5426 14 Jan, 2013 [facility] [place] [facility] [address] [id number] [place] [address]- 3353 14 Jan, 2013 [facility] [place] [facility] [address] [id number] [place] [address]- 2221 18 Dec, 2012 [facility] [place] [facility] [address] [id number] [place] [address]- 1205 13 Dec, 2012 [facility] [place] [facility] [address] [id number], [place] [address] 2012 [facility] [place] [facility] [address] [id number] [place] [address]- 8218 23 Nov, 2012 [facility] [place] [facility] [address] [id number], [place] [address] 7342 Nov, [facility] [place] [facility] [address] [id number], [place] [address]- 9652 16 Oct, 2012 [facility] [place] [facility] [address] [id number], [place] [address] 2549 Oct, [facility] [place] [facility] [address] [id number] [place] [address] 2543 Oct, [facility] [place] [facility] [address] [id number], [place] [address]- 2320 Sep, [facility] [place] [facility] [address] [id number] [place] [address] 2546 Sep, [facility] [place] [facility] [address] [id number] [place] [address]- 4128 Sep, [facility] [address] [id number] [place] [address]- 4907 Sep, [facility] [address] [id number] [place] [address]- 9466 Sep, [facility] [address] [id number] [place] [address]- 7724 Sep, [facility] [address] [id number] [place] [address]- 3625 August, [facility] [address] [id number] [place] [address]- 7640 August, [facility] [address] [id number] [place] [address]- 8077 August, [facility] [address] [id number] [place] [address]- 6638 August, [facility] [address] [id number] [place] [address]- 0576 August, [facility] [address] [id number] [place] [address]- 0116 August, [facility] [address] [id number] [place] [address]- 3561 August, [facility] [address] [id number] [place] [address]- 4137 Jul, [facility] [address] [id number] [place] [address]- 6737 Jul, [facility] [place] [facility] [address] [id number] [place] [address]- 2500 Jun, [facility] [place] [facility] [address] [id number] [place] [id number] [address] Jun, [facility] [address] [id number] [place] [address]- 9279 May, [facility] [place] [facility] [address] [id number] [place] [address]- 8878 May, [facility] [place] [facility] [address] [id number] [place] [address]- 8331 Apr, [facility] [place] [facility] [address] [id number] [place] [address]- 0380 Mar, [facility] [place] [facility] [address] [id number] [place] [address]- 1042 Mar, [facility] [place] [facility] [address] [id number] [place] [address]- 1098 Mar, [facility] [place] [facility] [address] [id number] [place] [address]- 7983 Mar, [facility] [place] [facility] [address] [id number] [place] [address]- 8716 Mar, [facility] [place] [facility] [address] [id number] [place] [address]- 5481 Mar, [facility] [place] [facility] [address] [id number] [place] [address]- 4290 Feb, [facility] [place] [facility] [address] [id number] [place] [address]- 9000 Feb, [facility] [place] [facility] [address] [id number] [place] [address]- 7734 Feb, [facility] [place] [facility] [address] [id number], [place] [address]- 7794 Feb, [facility] [place] [facility] [address] [id number] [place] [address]- 9747 Feb, [facility] [place] [facility] [address] [id number] [place] [address]- 1889 Feb, [facility] [place] [facility] [address] [facility] [id number], [place] [address]- 5226 Feb, [facility] [place] [facility] [address] [id number], [place] [address]- 5602 Feb, [facility] [place] [facility] [address] [id number] [place] [address]- 1416 Jan, [facility] [place] [facility] [address] [id number] [place] [address]- 0686 Jan, [facility] [place] [facility] [address] [id number] [place] [address]- 1198 28 Dec, 2011 [facility] [place] [facility] [address] [id number] [place] [address]- 6006 Dec, [facility] [place] [facility] [address] [id number] [place] [address]- 9397 Dec, [facility] [place] [facility] [address] [id number] [place] [address]- 5107 Dec, [facility] [place] [facility] [address] [id number] [place] [address]- 7645 Dec, [facility] [place] [facility] [address] [facility] [id number] [place] [address]- 3849 Nov, [facility] [place] [facility] [address] [id number] [place] [address]- 7959 Oct, [facility] [place] [facility] [address] [facility] [id number] [place] [address]- 9545 Oct, [facility] [place] [facility] [address] [facility] [id number], [place] [address]- 1551 Sep, [facility] [place] [facility] [address] [facility] [id number], [place] [address]- 1699 Sep, [facility] [place] [facility] [address] [id number] [place] [address]- 2275 Sep, [facility] [place] [facility] [address] [facility] [id number] [place] [address]- 1600 Sep, [facility] [place] [facility] [address] [facility] [id number] [place] [address]- 4754 Sep, [facility] [place] [facility] [address] [id number] [place] [address]- 9734 Sep, [facility] [place] [facility] [address] [id number] [place] [address]- 5654 Sep, [facility] [place] [facility] [address] [id number] [place] [address]- 8507 Sep, [facility] [place] [facility] [address] [id number] [place] [address]- 2709 August, [facility] [place] [facility] [address] [id number] [place] [address]- 8204 August, [facility] [place] [facility] [address] [id number] [place] [address]- 3145 August, [facility] [place] [facility] [address] [id number] [place] [address]- 1277 Jul, [facility] [place] [facility] [address] [id number] [place] [address]- 5269 Jul, [facility] [place] [facility] [address] [id number] [place] [address]- 6790 Jun, [facility] [place] [facility] [address] [id number] [place] [address]- 8177 Jun, [facility] [place] [facility] [address] [id number] [place] [address]- 1640 Jun, [facility] [place] [facility] [address] [id number] [place] [address]- 0793 Jun, [facility] [place] [facility] [address] [id number] [place] [address]- 9843 May, [facility] [place] [facility] [address] [id number] [place] [address]- 9416 May, [facility] [place] [facility] [address] [id number] [place] [address]- 2546 Apr, [facility] [place] [facility] [address] [id number] [place] [address]- 7512 Apr, [facility] [place] [facility] [address] [id number] [place] [address]- 7621 Apr, [facility] [place] [facility] [address] [id number] [place] [address]- 9433 Mar, [facility] [place] [facility] [address] [id number] [place] [address]- 3977 Mar, [facility] [place] [facility] [address] [id number] [place] [address]- 5707 Mar, [facility] [place] [facility] [address] [id number] [place] [address]- 3834 Feb, [facility] [place] [facility] [address] [id number] [place] [address]- 8292 Feb, [facility] [place] [facility] [address] [id number] [place] [address]- 1952 Feb, [facility] [place] [facility] [address] [id number], [place] [address]- 0032 Feb, [facility] [place] [facility] [address] [id number], [place] [address]- 3496 Jan, [facility] [place] [facility] [address] [id number], [place] [address]- 5786 Jan, [facility] [place] [facility] [address] [id number], [place] [address]- 0191 Jan, [facility] [place] [facility] [address] [id number], [place] [address]- 8436 16 Dec, 2010 [facility] [place] [facility] [address] [id number] [place] [address]- 2348 Oct, [facility] [place] [facility] [address] [id number], [place] [address]- 4829 Mar, [facility] [place] [facility] [address] [id number], [place] [address]- 9113 Feb, [facility] [place] [facility] [address] [id number], [place] [address]- 6876 15 Feb, 2010 [facility] [id number], [place] [address]- 8864 May, [facility] [id number], [place] [address]- 7111 Apr, [facility] [id number], [place] [address]- 2002 Mar, [facility] [id number], [place] [address]- 0228 Jan, [facility] [id number] [place] [address]- 1556 Oct, [facility] [id number], [place] [address]- 3650 Jul, [facility] [id number], [place] [address]- 8374 Mar, [facility] [id number], [place] [address]- 5727 Feb, [facility] [id number], [place] [address]- 5760 Jan, IMMUNIZATIONS No Known Immunizations SOCIAL HISTORY Never Assessed REASON FOR VISIT wound care referral PLAN OF CARE VITAL SIGNS MEDICATIONS Unknown [...]
--- OUTSIDE RECORDS SUMMARY | 2018-07-05 12:15 | XMS REPORT ---
Author Author KATHYA FISCHER [facility] Address [address] [place] [address] Care Team Providers Care Belt Polisher Name Role Phone KATHYA FISCHER Unavailable PROBLEMS Type Condition ICD9-CM Code EEU83-OD Code Onset Dates Condition Status SNOMED Code Problem Arthritis M19.90 Active 1354967 Problem 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 Active 22830484 Problem Polyneuropathy G62.9 Active 70771026 Problem Other male erectile dysfunction N52.8 Active 651118210 Problem Constipation K59.00 Active 52037502 Problem Type 2 diabetes mellitus with 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 E11.65 Active 288783122 Problem Controlled type 2 diabetes mellitus without complication, without long -term current use of insulin E11.9 Active 633107176 Problem [facility] current use of insulin Z79.4 Active 964718853 Problem Neuropathy G62.9 Active 978938674 Problem Obstructive sleep apnea G47.33 Active 67133675 Problem Hypertension, benign I10 Active 63199653 Problem Uncontrolled type 2 diabetes mellitus without complication, without long-term current use of insulin E11.65 Active 768152455 Problem Stress incontinence of urine N39.3 Active 17976405 Problem Fibromyalgia M79.7 Active 038538388 ALLERGIES Substance Reaction Event Type Date Status Zinc Unknown Drug Allergy Feb, Active SulfADIAZINE Unknown Drug Allergy Feb, Active Diclofenac tongue swelling Drug Allergy Feb, Active Ibuprofen Unknown Drug Allergy Feb, Active Cozaar Unknown Drug Allergy Feb, Active Nabumetone Unknown Drug Allergy Feb, Active Lasix Unknown Drug Allergy Feb, Active Androgel Unknown [...] Feb, Active ENCOUNTERS Encounter Location Date Diagnosis [place] [address] [address]- 4862 Mar, [place] [address] 17757- 2794 Feb, [place] [address] 91179- 5936 Feb, Fibromyalgia M79.7 and Uncontrolled type 2 diabetes mellitus without complication, without long-term current use of insulin E11.65 [place] [address] 51463- 4796 Jan, [place] [address] 46505- 1663 Jan, [place] [address] 57544- 3135 Jan, Uncontrolled type 2 diabetes mellitus without complication, without long-term current use of insulin E11.65 [place] [address] 38706- 2353 Jan, [place] [address] 06243- 0452 Dec, Therapeutic drug monitoring Z51.81 and Controlled type 2 diabetes mellitus without complication, without long-term current use of insulin E11.9 [place] [address] [place] [id number] [place] [address] 21591- 1202 Dec, Renal insufficiency N28.9 [place] [address] 63096- 1636 Dec, [place] [address] 98581- 3037 Dec, Dizziness R42 [place] [address] 36396- 1162 Dec, Dizziness R42 and Encounter for immunization Z23 [facility] [address] [place] [id number] [place] [address] 75124- 7246 Dec, Therapeutic drug monitoring Z51.81 and Controlled type 2 diabetes mellitus without complication, without long-term current use of insulin E11.9 [facility] [address] [place] [id number] [place] [address] 91513- 4666 Dec, [facility] [address] [place] [id number] [place] [address] 56961- 3720 Dec, [facility] [address] [place] [id number] [place] [address] 12276- 0901 Dec, [facility] [address] [place] [id number] [place] [address] 23365- 5467 Nov, [facility] [address] [place] [id number] [place] [address] 03713- 2537 Nov, Therapeutic drug monitoring Z51.81 [facility] [address] [place] [id number] [place] [address] 10757- 3182 Nov, [facility] [address] [place] [id number] [place] [address] 00011- 9292 Nov, Therapeutic drug monitoring Z51.81 ; Fibromyalgia M79.7 and Controlled type 2 diabetes mellitus without complication, without long-term current use of insulin E11.9 [facility] [address] [place] [id number] [place] [address] 10160- 7532 Nov, Type 2 diabetes mellitus with 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 E11.65 [facility] [address] [place] [id number] [place] [address] 54659- 9843 Nov, [facility] [address] [place] [id number] [place] [address] 22124- 2683 Nov, [facility] [address] [place] [id number] [place] [address] 63173- 5385 Nov, Type 2 diabetes mellitus with 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 E11.65 [facility] [address] [place] [id number] [place] [address] [place] [address]- 2298 Nov, [facility] [address] [address]- 5707 Nov, [facility] [address] [address]- 2514 Nov, Constipation K59.00 [facility] [id number] [place] [address] 11944- 8069 Oct, Diabetes type 2, controlled E11.9 [facility] [id number] [place] [address] 11618- 9722 Oct, Type 2 diabetes mellitus with 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 E11.65 ; [employer] current use of insulin Z79.4 and Neuropathy G62.9 [facility] [address] [address]- 2133 Oct, [facility] [id number] [place] [address] 82766- 8708 Oct, [facility] [address] [address]- 0388 Oct, [facility] [address] [address]- 2753 Oct, [facility] [address] [address]- 8863 Oct, [facility] [address] [place] [address]- 3468 Oct, [facility] [address] [address]- 0627 Oct, [facility] [address] [address]- 5600 Sep, [facility] [address] [address]- 0990 Sep, Uncontrolled type 2 diabetes mellitus without complication, without long-term current use of insulin E11.65 [facility] [id number] [place] [address] 32365- 7210 Sep, Hypertension, benign I10 ; Fibromyalgia M79.7 ; Controlled type 2 diabetes mellitus without complication, without long-term current use of insulin E11.9 and Uncontrolled type 2 diabetes mellitus without complication, without long-term current use of insulin E11.65 [facility] [address] [place] [id number] [place] [address] 93435- 8976 Sep, [facility] [address] [place] [id number] [place] [address] 30186- 2544 Sep, Uncontrolled type 2 diabetes mellitus without complication, without long-term current use of insulin E11.65 [place] [address] [place] [id number] [place] [address] 71761- 6236 Sep, [place] [address] [place] [id number] [place] [address] 32253- 0083 Sep, [facility] [address] [place] [id number] [place] [address] 79353- 7473 Sep, Uncontrolled type 2 diabetes mellitus without complication, without long-term current use of insulin E11.65 and Fibromyalgia M79.7 [place] [address] [place] [id number] [place] [address] 85559- 4871 August, [place] [address] [place] [id number] [place] [address] 50056- 8321 August, [place] [address] [place] [id number] [place] [address] 84426- 4936 August, [facility] [address] [place] [id number] [place] [address] 68437- 7051 August, Fibromyalgia M79.7 [facility] [address] [place] [id number] [place] [address] 09825- 3546 Jul, Hypertension, benign I10 [place] [address] [place] [id number] [place] [address] 90464- 8226 Jul, Fibromyalgia M79.7 [facility] [address] [place] [id number] [place] [address] 60372- 8846 Jul, [facility] [address] [place] [id number] [place] [address] 79197- 7387 Jun, [place] [address] 44417- 6348 Jun, Hypertension, benign I10 ; Arthritis M19.90 ; [employer] current use 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 Z79.891 and Uncontrolled type 2 diabetes mellitus without complication, without long-term current use of insulin E11.65 [facility] [address] [place] [id number] [place] [address] 16452 -0207 Jun, Acute nasopharyngitis J00 and BMI 50.0-59.9, adult Z68.43 [place] [address] [place] [id number] [place] [address] 00321- 6405 Jun, Fibromyalgia M79.7 [place] [address] 84374- 4889 14 May, 2017 [place] [address] [place] [id number] [place] [address] 02870- 6708 May, Fibromyalgia M79.7 [place] [address] 23561- 3497 Apr, Fibromyalgia M79.7 [facility] [address] [place] [id number] [place] [address] 09814- 1294 Apr, [place] [address] [place] [id number] [place] [address] 15475- 9095 Apr, [facility] [address] [place] [id number] [place] [address] 27796- 1019 Apr, Arthritis M19.90 [facility] [address] [place] [id number] [place] [address] 76098- 0115 Apr, Arthritis M19.90 [facility] [address] [place] [id number] [place] [address] 62994- 6932 Apr, Arthritis M19.90 and Controlled type 2 diabetes mellitus without complication, without long-term current use of insulin E11.9 [facility] [address] [place] [id number] [place] [address] 47922- 0836 Apr, [facility] [address] [place] [id number] [place] [address] 13590 2546 Apr, Fibromyalgia M79.7 [facility] [address] 67644- 5856 Mar, [facility] [address] 05420- 9998 Mar, [facility] [address] 72717- 0884 Mar, Fibromyalgia M79.7 [facility] [address] 30411- 4497 Feb, [facility] [address] 10732- 1751 Feb, [facility] [address] 66689- 2841 Feb, [facility] [address] 41324- 2177 Feb, Fibromyalgia M79.7 [facility] [address] [place] [id number] [place] [address] 13292- 9512 Feb, Diabetes type 2, uncontrolled E11.65 and Encounter for immunization Z23 [facility] [address] [place] [id number] [place] [address] 65643 2544 Jan, [facility] [address] 61878- 6356 Jan, Fibromyalgia M79.7 [facility] [address] [place] [id number] [place] [address] 07603 2546 Dec, [facility] [address] [address] 2313 Dec, Fibromyalgia M79.7 [facility] [address], [place] [address]- 3577 Nov, [facility] [address] [place] [id number] [place] [address] 69912- 3141 Nov, [facility] [address] [place] [id number] [place] [address] 12823- 2010 Nov, 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 and Polyneuropathy G62.9 [facility] [address] [place] [id number] [place] [address] 07702- 7765 Nov, [facility] [address] [place] [id number] [place] [address] 24994- 1237 Nov, [facility] [address] [place] [id number] [place] [address] 59822- 6105 Oct, Diabetes type 2, uncontrolled E11.65 [facility] [address] [place] [id number] [place] [address] 73959- 2454 Oct, Diabetes type 2, uncontrolled E11.65 ; Polyneuropathy G62.9 and Pain in right wrist M25.531 [facility] [address] [place] [id number] [place] [address] 79425- 1490 Oct, [facility] [address] [place] [id number] [place] [address] 17964- 2548 Oct, Pain in left shoulder M25.512 [facility] [address] [place] [id number] [place] [address] 30136- 7856 Sep, [facility] [address] [place] [id number] [place] [address] 83653- 5254 Sep, Pain in left shoulder M25.512 [facility] [address] [place] [id number] [place] [address] 16804- 5352 Sep, [facility] [address] [place] [id number] [place] [address] 06861- 1702 August, Pain in left shoulder M25.512 [facility] [address], [place] [address]- 5020 Jul, [facility] [address] [place] [id number] [place] [address] 63204- 1870 Jul, [facility] [address] [place] [id number] [address]- 8322 Jul, Pain in left shoulder M25.512 [facility] [address] [place] [id number] [place] [address] 36497- 8138 Jun, [facility] [address] [place] [id number] [place] [address] 60276- 3330 Jun, [facility] [address] [place] [id number] [place] [address] 74258- 0780 Jun, Diabetes type 2, uncontrolled E11.65 ; Fibromyalgia M79.7 and Arthritis M19.90 [facility] [address] [place] [id number] [place] [address] 97914- 4873 Jun, Pain in left shoulder M25.512 [facility] [address], [place] [address]- 8291 May, [facility] [address] [place] [id number] [place] [address] 02712- 1389 May, Diabetes type 2, controlled E11.9 [facility] [address], [place] [address]- 8242 May, [facility] [id number] [place] [address] 55474- 5299 May, Uncontrolled type 2 diabetes mellitus without complication, without long-term current use of insulin E11.65 [facility] [id number] [place] [address] 70137- 7505 15 May, 2016 Pain in left shoulder M25.512 [facility] [address], [place] [address]- 4065 03 May, 2016 Diabetes type 2, controlled E11.9 and Uncontrolled type 2 diabetes mellitus without complication, without long-term current use of insulin E11.65 [facility] [address], [place] [address]- 9675 Apr, [facility] [id number] [place] [address] 29336- 2023 Apr, [facility] [address] [place] [id number] [place] [address] 84110- 9932 Mar, [facility] [address] [place] [id number] [place] [address] 23020- 7029 Mar, [facility] [address] [place] [id number] [place] [address] 83494- 4276 Mar, [facility] [address] [place] [id number] [place] [address] 82055- 8346 Feb, [facility] [address] [place] [id number] [place] [address] [id number] Feb, Dental examination Z01.20 [facility] [id number] [place] [address] 87967- 6041 Jan, [facility] [address] [place] [id number] [place] [address] 38184- 3066 Dec, [facility] [address], [place] [address]- 8518 Dec, [facility] [id number] [place] [address] 78688- 6730 Dec, [facility] [id number] [place] [address] 21521- 7546 Dec, Diabetes type 2, controlled E11.9 [facility] [id number] [place] [address] 532496- 1820 Nov, [facility] [address], [place] [address]- 4120 Nov, [facility] [id number] [place] [address] 78647- 8136 Nov, [facility] [address] [facility] [id number] [place] [address]- 6491 Nov, [facility] [address] [facility] [id number] [place] [address]- 5867 Oct, [facility] [id number] [address]- 7681 Oct, [facility] [address] [place] [id number] [place] [address], [place] [address]- 3575 Oct, [facility] [address] [facility] [id number] [place] [address], [place] [address]- 7812 Sep, [facility] [address] [place] [id number] [place] [address], [place] [address]- 4158 Sep, Diabetes type 2, controlled E11.9 [facility] [address] [place] [id number] [place] [address], [place] [address]- 3863 Sep, Diabetes type 2, controlled E11.9 [facility] [address] [place] [address]- 4835 August, [facility] [address] [place] [id number] [place] [address], [place] [address]- 9742 August, [facility] [address] [place] [address]- 3923 August, Type 2 diabetes mellitus without complication E11.9 and Pain in left shoulder M25.512 [facility] [address] [place] [address]- 9675 Jul, [facility] [address] [place] [address]- 7129 Jul, Diabetes type 2, controlled E11.9 and Hypertension, benign I10 [facility] [address] [place] [address]- 3682 Jun, [facility] [address] [place] [address]- 4619 Jun, [facility] [id number] [place] [address] 75543- 8802 Jun, Diabetes 250.00 [facility] [address] [place] [id number] [place] [address] 66149- 5810 Jun, [facility] [address] [place] [id number] [place] [address] 77278- 5996 May, Diabetes type 2, uncontrolled E11.65 [facility] [address] [place] [id number] [place] [address] 26546- 2309 May, [facility] [address] [place] [id number] [place] [address] 75122- 6963 Apr, Type 2 diabetes mellitus without complication E11.9 [facility] [address] [place] [id number] [place] [address] 18750- 0413 Apr, Encounter for immunization Z23 [facility] [address] [place] [id number] [place] [address] 16272- 8767 Apr, [facility] [address] [place] [id number] [place] [address] 29001- 1248 Mar, [facility] [address] [place] [id number] [place] [address] 43658- 0351 Mar, [facility] [address] [place] [id number] [place] [address] 34497- 4337 Mar, [facility] [id number] [place] [address] 18696- 0427 Feb, [facility] [id number] [place] [address] 14216- 7790 Jan, [facility] [address] [place] [id number] [place] [address] 98771- 5411 Jan, [facility] [address] [place] [id number] [place] [address] 14124- 0915 Jan, [facility] [address] [place] [id number] [place] [address] 03979- 8132 Dec, Diabetes 250.00 and COPD (chronic obstructive pulmonary disease) 496 [facility] [id number] [place] [address] 75134- 0087 Dec, [facility] [address] [id number] [place] [address] 59347- 9997 Dec, [facility] [id number] [place] [address] 20005- 4324 Nov, [facility] [id number] [place] [address] 99564- 5309 Oct, Diabetes 250.00 [facility] [id number] [place] [address] 66265- 0617 Sep, [facility] [id number] [place] [address] 95525- 9748 Sep, [facility] [id number] [place] [address] 84725- 5891 Sep, [facility] [id number] [place] [address] 19986- 9130 Sep, Diabetes 250.00 [facility] [id number] [place] [address] 43408- 7107 Sep, [facility] [id number] [place] [address] 25502- 2958 Sep, [facility] [id number] [place] [address] 01209- 6392 August, Hypertension, essential, benign 401.1 ; Coronary atherosclerosis of [place] coronary artery 414.01 and Diabetic neuropathy associated with type 2 diabetes mellitus 250.60 [facility] [id number] [place] [address] 48248- 5105 Jul, [facility] [id number] [place] [address] 41629- 2115 Jul, [facility] [id number] [place] [address]- 2546 Jul, [facility] [place] [facility] [address] [id number] [place] [address] Jun, [facility] [place] [facility] [address] [id number] [place] [address] Jun, [facility] [place] [facility] [address] [facility] [id number] [place] [address] Jun, [facility] [place] [facility] [address] [id number] [place] [address] 139[address] Jun, [facility] [place] [facility] [address] [id number] [place] [address] 9997 Jun, [facility] [place] [facility] [address] [facility] [id number] [place] [address]120 May, [facility] [place] [facility] [address] [facility] [id number] [place] [address] 2736 May, [facility] [place] [facility] [address] [facility] [id number] [place] [address]- [address] May, [facility] [place] [facility] [address] [facility] [id number] [place] [address]- 2844 May, [facility] [place] [facility] [address] [facility] [id number] [place] [address]- 7929 May, [facility] [place] [facility] [address] [facility] [id number] [place] [address]- 8766 May, [facility] [place] [facility] [address] [facility] [id number], [place] [address] May, [facility] [place] [facility] [address] [facility] [id number], [place] [address] Apr, [facility] [place] [facility] [address] [facility] [id number], [place] [address] 4096 Apr, [facility] [place] [facility] [address] [facility] [id number], [place] [address] 1766 Apr, [facility] [place] [facility] [address] [id number] [place] [address]- 5969 Apr, [facility] [place] [facility] [address] [id number] [place] [address] 92[address] Mar, [facility] [place] [facility] [address] [id number] [place] [address] Mar, [facility] [place] [facility] [address] [id number] [place] [address] 1824 Mar, [facility] [place] [facility] [address] [id number] [place] [address]- 7940 Mar, [facility] [place] [facility] [address] [id number] [place] [address] 92[address] Feb, [facility] [place] [facility] [address] [id number] [place] [address] 6294 Feb, [facility] [place] [facility] [address] [id number] [place] [address] 8913 Feb, [facility] [place] [facility] [address] [id number] [place] [address]- 1002 Feb, [facility] [place] [facility] [address] [id number] [place] [address]- 7822 Feb, [facility] [place] [facility] [address] [id number] [place] [address]- 4634 Feb, [facility] [place] [facility] [address] [id number] [place] [address]- 4808 Feb, [facility] [place] [facility] [address] [id number] [place] [address]- 9202 Jan, [facility] [place] [facility] [address] [id number] [place] [address]- 9873 Jan, [facility] [place] [facility] [address] [id number] [place] [address] 4183 Dec, [facility] [place] [facility] [address] [id number] [place] [address]- 9594 Dec, 2013 [facility] [place] [facility] [address] [id number] [place] [address]- 9788 10 Dec, 2013 [facility] [place] [facility] [address] [id number] [place] [address]- 5079 Dec, [facility] [place] [facility] [address] [id number] [place] [address]- 1019 Dec, 2013 [facility] [place] [facility] [address] [id number] [place] [address]- 6117 Dec, 2013 [facility] [place] [facility] [address] [id number] [place] [address]- 2515 Dec, [facility] [place] [facility] [address] [id number] [place] [address]- 9508 Dec, [facility] [place] [facility] [address] [id number] [place] [address]- 5267 Nov, [facility] [place] [facility] [address] [id number] [place] [address]- 9722 Nov, [facility] [place] [facility] [address] [id number] [place] [address]- 3525 Nov, [facility] [place] [facility] [address] [id number] [place] [address]- 1524 Nov, [facility] [place] [facility] [address] [id number] [place] [address]- 4503 Oct, [facility] [place] [facility] [address] [id number] [place] [address]- 2303 Oct, [facility] [place] [facility] [address] [id number] [place] [address]- 1580 Oct, [facility] [place] [facility] [address] [id number] [place] [address]- 6279 Oct, [facility] [place] [facility] [address] [id number] [place] [address]- 0683 Oct, [facility] [place] [facility] [address] [id number] [place] [address]- 3845 Oct, [facility] [address] [id number] [place] [address]- 9624 Oct, [facility] [place] [facility] [address] [id number] [place] [address]- 0811 Oct, [facility] [address] [id number] [place] [address]- 1842 Sep, [facility] [place] [facility] [address] [id number] [place] [address]- 8054 Sep, [facility] [address] [id number] [place] [address]- 7046 August, [facility] [address] [id number] [place] [address]- 8175 August, [facility] [place] [facility] [address] [id number] [place] [address]- 3267 Jul, [facility] [address] [id number] [place] [address]- 9506 Jul, [facility] [place] [facility] [address] [id number] [place] [address]- 0313 Jul, [facility] [address] [id number] [place] [address]- 6251 Jul, [facility] [place] [facility] [address] [id number] [place] [address]- 3951 Jul, [facility] [place] [facility] [address] [id number] [place] [address]- 9627 Jul, [facility] [place] [facility] [address] [id number] [place] [address]- 2175 Jul, [facility] [place] [facility] [address] [id number] [place] [address]- 8308 Jul, [facility] [place] [facility] [address] [id number] [place] [address]- 8430 Jun, [facility] [place] [facility] [address] [id number] [place] [address]- 8349 Jun, [facility] [place] [facility] [address] [id number] [place] [address]- 5116 Jun, [facility] [place] [facility] [address] [id number] [place] [address]- 1516 Jun, [facility] [place] [facility] [address] [id number] [place] [address]- 7366 May, [facility] [place] [facility] [address] [id number] [place] [address]- 0266 May, [facility] [place] [facility] [address] [id number] [place] [address]- 6102 Apr, [facility] [place] [facility] [address] [id number] [place] [address]- 9826 Apr, [facility] [place] [facility] [address] [id number] [place] [address]- 1993 Mar, [facility] [place] [facility] [address] [id number] [place] [address]- 5666 Mar, [facility] [place] [facility] [address] [id number] [place] [address]- 7450 Mar, [facility] [place] [facility] [address] [id number] [place] [address]- 7424 Mar, [facility] [place] [facility] [address] [id number] [place] [address]- 4004 Mar, [facility] [place] [facility] [address] [id number] [place] [address]- 7123 Mar, [facility] [place] [facility] [address] [id number] [place] [address]- 5356 Feb, [facility] [place] [facility] [address] [id number] [place] [address]- 9791 Feb, [facility] [place] [facility] [address] [id number] [place] [address]- 3602 Feb, [facility] [place] [facility] [address] [id number] [place] [address]- 3999 Feb, [facility] [place] [facility] [address] [id number] [place] [address]- 5583 Feb, [facility] [place] [facility] [address] [id number] [place] [address]- 3465 Feb, [facility] [place] [facility] [address] [id number] [place] [address]- 7822 Feb, [facility] [place] [facility] [address] [id number] [place] [address]- 7359 Feb, [facility] [place] [facility] [address] [id number] [place] [address]- 5864 15 Jan, 2013 [facility] [place] [facility] [address] [id number] [place] [address]- 6213 15 Jan, 2013 [facility] [place] [facility] [address] [id number] [place] [address]- 7509 14 Jan, 2013 [facility] [place] [facility] [address] [id number] [place] [address]- 7996 14 Jan, 2013 [facility] [place] [facility] [address] [id number] [place] [address]- 8461 18 Dec, 2012 [facility] [place] [facility] [address] [id number] [place] [address]- 9357 13 Dec, 2012 [facility] [place] [facility] [address] [id number], [place] [address] 2012 [facility] [place] [facility] [address] [id number] [place] [address]- 6193 Nov, [facility] [place] [facility] [address] [id number] [place] [address]- 4436 Nov, [facility] [place] [facility] [address] [id number], [place] [address] 9447 16 Oct, 2012 [facility] [place] [facility] [address] [id number] [place] [address]- 0978 Oct, [facility] [place] [facility] [address] [id number] [place] [address]- 1911 Oct, [facility] [place] [facility] [address] [id number] [place] [address]- 7808 Sep, [facility] [place] [facility] [address] [id number] [place] [address]- 7910 Sep, [facility] [place] [facility] [address] [id number] [place] [address]- 2853 Sep, [facility] [place] [facility] [address] [id number] [place] [address]- 0742 Sep, [facility] [place] [facility] [address] [id number] [place] [address]- 9578 Sep, [facility] [place] [facility] [address] [id number] [place] [address]- 9416 Sep, [facility] [address] [id number] [place] [address]- 8845 August, [facility] [place] [facility] [address] [id number] [place] [address]- 1732 August, [facility] [place] [facility] [address] [id number] [place] [address]- 9407 August, [facility] [place] [place] [facility] [address] [id number] [place] [address]- 8316 August, [facility] [place] [facility] [address] [id number] [place] [address]- 2943 August, [facility] [place] [facility] [address] [id number] [place] [address]- 6910 August, [facility] [place] [facility] [address] [id number] [place] [address]- 9986 August, [facility] [place] [facility] [address] [id number] [place] [address]- 2540 Jul, [facility] [address] [id number] [place] [address]- 1952 Jul, [facility] [place] [facility] [address] [id number] [place] [address]- 6599 Jun, [facility] [place] [facility] [address] [facility] [id number] [place] [address] Jun, [facility] [place] [facility] [address] [id number] [place] [address]- 3562 May, [facility] [place] [facility] [address] [id number] [place] [address]- 9332 May, [facility] [place] [facility] [address] [facility] [id number] [place] [address]- 0332 Apr, [facility] [place] [facility] [address] [id number] [place] [address]- 4759 Mar, [facility] [place] [facility] [address] [id number] [place] [address]- 9947 Mar, [facility] [place] [facility] [address] [id number] [place] [address]- 3883 Mar, [facility] [place] [facility] [address] [id number] [place] [address]- 2599 Mar, [facility] [place] [facility] [address] [facility] [id number] [place] [address]- 8330 Mar, [facility] [place] [facility] [address] [id number], [place] [address]- 3088 Mar, [facility] [place] [facility] [address] [id number] [place] [address]- 9083 Feb, [facility] [place] [facility] [address] [facility] [id number] [place] [address]- 7354 Feb, [facility] [place] [facility] [address] [facility] [id number] [place] [address]- 9824 Feb, [facility] [place] [facility] [address] [id number] [place] [address]- 1981 Feb, [facility] [address] [id number] [place] [address]- 0860 Feb, [facility] [place] [facility] [address] [id number] [place] [address]- 7326 Feb, [facility] [address] [id number] [place] [address]- 6396 Feb, [facility] [place] [facility] [address] [id number] [place] [address]- 9928 Feb, [facility] [address] [id number] [place] [address], [place] [address]- 6080 Jan, [facility] [place] [facility] [address] [id number] [place] [address]- 8171 Jan, [facility] [place] [facility] [address] [facility] [id number] [place] [address]- 5487 Dec, [facility] [place] [facility] [address] [id number] [place] [address]- 6101 Dec, [facility] [place] [facility] [address] [id number] [place] [address]- 1685 Dec, [facility] [place] [facility] [address] [facility] [id number] [place] [address]- 6964 Dec, [facility] [place] [facility] [address] [facility] [id number] [place] [address]- 5415 Dec, [facility] [place] [facility] [address] [id number] [place] [address]- 5104 Nov, [facility] [place] [facility] [address] [id number] [place] [address]- 6184 Oct, [facility] [place] [facility] [address] [facility] [id number] [place] [address]- 2546 Oct, [facility] [place] [facility] [address] [facility] [id number] [place] [address]- 3063 Sep, [facility] [place] [facility] [address] [id number] [place] [address]- 3981 Sep, [facility] [place] [facility] [address] [id number] [place] [address]- 1544 Sep, [facility] [place] [facility] [address] [id number] [place] [address]- 6014 Sep, [facility] [place] [facility] [address] [id number] [place] [address]- 1731 Sep, [facility] [place] [facility] [address] [id number] [place] [address]- 0139 Sep, [facility] [place] [facility] [address] [id number] [place] [address]- 5639 Sep, [facility] [place] [facility] [address] [id number] [place] [address]- 9874 Sep, [facility] [place] [facility] [address] [id number] [place] [address]- 0080 August, [facility] [place] [facility] [address] [id number] [place] [address]- 6893 August, [facility] [place] [facility] [address] [id number] [place] [address]- 5763 August, [facility] [place] [facility] [address] [id number] [place] [address]- 7433 Jul, [facility] [place] [facility] [address] [id number], [place] [address]- 9328 Jul, [facility] [place] [facility] [address] [id number] [place] [address]- 7421 Jun, [facility] [place] [facility] [address] [id number] [place] [address]- 3971 Jun, [facility] [place] [facility] [address] [id number], [place] [address]- 5939 Jun, [facility] [place] [facility] [address] [id number], [place] [address]- 2327 Jun, [facility] [address] [id number] [place] [address]- 4522 May, [facility] [place] [facility] [address] [id number] [place] [address]- 4996 May, [facility] [place] [facility] [address] [facility] [id number] [place] [address]- 9196 Apr, [facility] [place] [facility] [address] [id number] [place] [address]- 9084 Apr, [facility] [address] [id number] [place] [address]- 2564 Apr, [facility] [place] [facility] [address] [id number] [place] [address]- 5465 Mar, [facility] [place] [facility] [address] [facility] [id number], [place] [address]- 7049 Mar, [facility] [place] [facility] [address] [facility] [id number], [place] [address]- 5554 Mar, [facility] [place] [facility] [address] [facility] [id number] [place] [address]- 1833 Feb, [facility] [place] [facility] [address] [facility] [id number] [place] [address]- 2358 Feb, [facility] [place] [facility] [address] [facility] [id number] [place] [address]- 8226 Feb, [facility] [place] [facility] [address] [id number], [place] [address]- 1803 Feb, [facility] [place] [facility] [address] [id number], [place] [address]- 6950 Jan, [facility] [place] [facility] [address] [facility] [id number], [place] [address]- 8249 Jan, [facility] [place] [facility] [address] [facility] [id number], [place] [address]- 0697 Jan, [facility] [place] [facility] [id number], [place] [address]- 4236 16 Dec, 2010 [facility] [id number], [place] [address]- 4426 Oct, [facility] [id number], [place] [address]- 5086 Mar, [facility] [id number], [place] [address] 2543 Feb, [facility] [address] [facility] [id number], [place] [address]- 2547 Feb, [facility] [id number] [place] [address]- 7442 May, [facility] [id number], [place] [address]- 3746 Apr, [facility] [id number], [place] [address]- 3598 Mar, [facility] [id number], [place] [address]- 0985 Jan, [facility] [id number], [place] [address]- 9142 Oct, [facility] [id number], [place] [address]- 4422 Jul, [facility] [address] [id number], [place] [address]- 1566 Mar, [facility] [address] [id number], [place] [address]- 7841 Feb, [facility] [id number], [place] [address]- 2273 Jan, IMMUNIZATIONS No Known Immunizations SOCIAL HISTORY Never Assessed REASON FOR VISIT Diabetes, -Blaise KELLY PLAN OF CARE Activity Details Follow Up 4 Weeks Reason:dm2 uncontrolled. VITAL SIGNS Height 71 in 2018-02-19 Weight 348 lbs 2018-02-19 Temperature 97.4 degrees Fahrenheit 2018-02-19 Heart Rate 69 bpm 2018-02-19 Respiratory Rate 20 2018-02-19 BMI 48.53 kg/m2 2018-02-19 Blood pressure systolic 124 mmHg 2018-02-19 Blood pressure diastolic 82 mmHg 2018-02-19 MEDICATIONS Medication Instructions Dosage Frequency Start Date End Date Duration Status Finasteride 5 mg Orally Once a day 1 tablet 24h Dec, August, 30 day(s) Active Blood Glucose Test 1 1 test Jul, Active GlipiZIDE 10 mg Orally 2 times a day 2 tablets 12h Active Vitamin B Complex Active Metoprolol Tartrate 100 mg 1 tablet with food 12h Active Doxepin HCl 100 MG Orally Once a day 1 capsule at bedtime 24h Dec, 30 day(s) Active Pen [place] 32G X 6 MM subcutaneously Once a day as directed with Victoza 24h Nov, 30 days Active Lyrica 200 mg Orally Three times a day 1 capsule 8h 28 days Active Atorvastatin Calcium 40 mg Orally Once a day 1 tablet 24h Active Lancets - as directed Oct, Active Symbicort 160-4.5 MCG/ACT Inhalation Twice a day 2 puff 12h Feb, Active Aspirin 325 MG Orally Once a day 1 tablet 24h Active Cymbalta 60 mg 1 capsule 24h Active Furosemide 20 mg Orally 3 times a day 1 tablet 8h Active Mupirocin 2 % 1 application to affected area 12h Active potassium 2 tablets Active Tylenol Extra Strength 500 mg Orally 3 times a day 2 tablets 8h Active Hydrochlorothiazide 25 MG 1 tablet in the morning 24h Active Glucometer as directed Oct, Active Zanaflex 6 MG Orally Three times a day 1 capsule as needed 8h Feb, Active Cialis 20 mg Orally Once a day 1 tablet 24h Oct, Active Fish Oil 1200 MG Orally Once a day 2 capsule 24h Active Trulicity 1.5 MG/0.5ML Subcutaneous once weekly on Thursday Inject Jan, 90 days Active ProAir HFA 108 (90 Base) MCG/ACT Inhalation every 4 hrs 2 puffs as needed 4h Active lidocaine topical 5 %(700 mg/patch) 3 PATCH by Topical route 1 time per day apply on bilateral wrist and left ankle 24h Jan, Active RESULTS No Results PROCEDURES No Known [...]
--- OUTSIDE RECORDS SUMMARY | 2018-07-05 12:16 | XMS REPORT ---
Author Author KATHYA FISCHER Organization [facility] Address [address] [place] [address] Care Team Providers Care Csr Technician Name Role Phone KATHYA FISCHER Unavailable PROBLEMS Type Condition ICD9-CM Code QIE17-AR Code Onset Dates Condition Status SNOMED Code Problem Arthritis M19.90 Active 8635417 Problem 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 Active 53141138 Problem Polyneuropathy G62.9 Active 76642453 Problem Other male erectile dysfunction N52.8 Active 299818456 Problem Constipation K59.00 Active 31475309 Problem Type 2 diabetes mellitus with 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 E11.65 Active 262957662 Problem Controlled type 2 diabetes mellitus without complication, without long -term current use of insulin E11.9 Active 199032109 Problem alf current use of insulin Z79.4 Active 173581376 Problem Neuropathy G62.9 Active 397331125 Problem Obstructive sleep apnea G47.33 Active 58450704 Problem Hypertension, benign I10 Active 50833473 Problem Uncontrolled type 2 diabetes mellitus without complication, without long-term current use of insulin E11.65 Active 553509280 Problem Stress incontinence of urine N39.3 Active 29566507 Problem Fibromyalgia M79.7 Active 043729156 ALLERGIES No Information ENCOUNTERS Encounter Location Date Diagnosis [facility] [id number] [address] Feb, [facility] [address], [place] [address] 7[address] Jan, [facility] [id number] [place] [address] 96605- 9828 Jan, Uncontrolled type 2 diabetes mellitus without complication, without long-term current use of insulin E11.65 [facility] [id number], [place] [address] 7504 Jan, [facility] [id number] [place] [address] 79151- 3329 Dec, Therapeutic drug monitoring Z51.81 and Controlled type 2 diabetes mellitus without complication, without long-term current use of insulin E11.9 [facility] [id number] [place] [address] 47926- 2981 Dec, Renal insufficiency N28.9 [facility] [address] [address]- [address] Dec, [facility] [address] [address]- 7301 Dec, Dizziness R42 [facility] [address] [address]20- 6188 Dec, Dizziness R42 and Encounter for immunization Z23 [facility] [address] [address]75- 5016 Dec, Therapeutic drug monitoring Z51.81 and Controlled type 2 diabetes mellitus without complication, without long-term current use of insulin E11.9 [facility] [id number] [place] [address] 12472- 2647 Dec, [facility] [address] 60308- 8435 Dec, [facility] [id number] [place] [address] 26958- 4991 Dec, [facility] [id number] [place] [address] 33652- 2456 Nov, [facility] [id number] [place] [address] 97343- 9258 Nov, Therapeutic drug monitoring Z51.81 [facility] [id number] [place] [address] 91423- 8743 Nov, [facility] [id number] [place] [address] 29872- 0445 Nov, Therapeutic drug monitoring Z51.81 ; Fibromyalgia M79.7 and Controlled type 2 diabetes mellitus without complication, without long-term current use of insulin E11.9 [facility] [address], [place] [address] 3[address] Nov, Type 2 diabetes mellitus with 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 E11.65 [facility] [address], [place] [address]- 0126 Nov, [facility] [id number] [place] [address] 59348- 9975 Nov, [facility] [address], [place] [address]- 7057 Nov, Type 2 diabetes mellitus with 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 E11.65 [facility] [id number] [place] [address] 52768- 2607 Nov, [facility] [id number] [place] [address] 48640- 7405 Nov, [facility] [address] [place] [address] 40876- 4806 Nov, Constipation K59.00 [facility] [id number] [place] [address] 60085- 9930 Oct, Diabetes type 2, controlled E11.9 [facility] [address], [place] [address]- 8889 Oct, Type 2 diabetes mellitus with 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 E11.65 ; 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 and Neuropathy G62.9 [facility] [address], [place] [address]- 8472 Oct, [facility] [address], [place] [address]- 5059 Oct, [facility] [address], [place] [address]- 4018 Oct, [facility] [address], [place] [address]- 2324 Oct, [facility] [address], [place] [address]- 9693 Oct, [facility] [address], [place] [address]- 9637 Oct, [facility] [address], [place] [address]- 8796 Oct, [facility] [address], [place] [address]- 5732 Sep, [facility] [id number] [place] [address]- 4863 Sep, Uncontrolled type 2 diabetes mellitus without complication, without long-term current use of insulin E11.65 [place] [address], [place] [address]- 0548 Sep, Hypertension, benign I10 ; Fibromyalgia M79.7 ; Controlled type 2 diabetes mellitus without complication, without long-term current use of insulin E11.9 and Uncontrolled type 2 diabetes mellitus without complication, without long-term current use of insulin E11.65 [place] [address], [place] [address]- 6073 Sep, [facility] [address], [place] [address]- 1602 Sep, Uncontrolled type 2 diabetes mellitus without complication, without long-term current use of insulin E11.65 [place] [address], [place] [address]- 6899 Sep, [facility] [address], [place] [address]- 2546 Sep, [facility] [address], [place] [address]- 7318 Sep, Uncontrolled type 2 diabetes mellitus without complication, without long-term current use of insulin E11.65 and Fibromyalgia M79.7 [facility] [address], [place] [address]- 4544 August, [facility] [address] [place] [address]- 9438 August, [facility] [id number] [place] [address] 43653- 8238 August, [facility] [id number] [place] [address] 14815- 5840 August, Fibromyalgia M79.7 [facility] [address] 87025- 7926 Jul, Hypertension, benign I10 [facility] [address] 82003- 1193 Jul, Fibromyalgia M79.7 [facility] [address] 67778- 8298 Jul, [facility] [address] 32780- 0161 Jun, [facility] [address] 65556- 6830 Jun, Hypertension, benign I10 ; Arthritis M19.90 ; alf current use 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 Z79.891 and Uncontrolled type 2 diabetes mellitus without complication, without long-term current use of insulin E11.65 [facility] [id number] [place] [address] 21865 -5773 Jun, Acute nasopharyngitis J00 and BMI 50.0-59.9, adult Z68.43 [facility] [id number] [place] [address] 57258- 0281 Jun, Fibromyalgia M79.7 [facility] [id number] [place] [address] 66888- 2649 May, [place] [address] 07892- 8413 May, Fibromyalgia M79.7 [facility] [id number] [place] [address] 76409- 7516 Apr, Fibromyalgia M79.7 [facility] [address], [place] [address] 2546 Apr, [facility] [id number] [place] [address] 63948 2546 Apr, [facility] [id number] [place] [address] 03876 2546 Apr, Arthritis M19.90 [facility] [id number] [place] [address] 79158 2546 Apr, Arthritis M19.90 [facility] [id number] [place] [address] 71383 2546 Apr, Arthritis M19.90 and Controlled type 2 diabetes mellitus without complication, without long-term current use of insulin E11.9 [facility] [address] [place] [address] 51596 2546 Apr, [facility] [id number] [place] [address] 10221 2546 Apr, Fibromyalgia M79.7 [facility] [address] [place] [address] 49271 2546 Mar, [facility] [id number] [place] [address] 53326 2546 Mar, [facility] [id number] [place] [address] 71050 2546 Mar, Fibromyalgia M79.7 [facility] [address], [place] [address] 2546 Feb, [facility] [id number] [place] [address] 04994 2546 Feb, [facility] [address], [place] [address] 2546 Feb, [facility] [address], [place] [address] 2546 Feb, Fibromyalgia M79.7 [facility] [address], [place] [address]- 1071 Feb, Diabetes type 2, uncontrolled E11.65 and Encounter for immunization Z23 [facility] [id number] [place] [address] 33518- 2783 Jan, [facility] [id number] [place] [address] 47065- 6412 Jan, Fibromyalgia M79.7 [facility] [id number] [place] [address] 62634- 5542 Dec, [facility] [id number] [place] [address] 37044- 0176 Dec, Fibromyalgia M79.7 [facility] [id number] [place] [address] 00107- 0045 Nov, [facility] [id number] [place] [address] 19104- 3824 Nov, [facility] [id number] [place] [address] 91838- 7490 Nov, 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 and Polyneuropathy G62.9 [facility] [id number] [place] [address] 49829- 4203 Nov, [facility] [id number] [place] [address] 96662- 9750 Nov, [facility] [id number] [place] [address] 74050- 2990 Oct, Diabetes type 2, uncontrolled E11.65 [facility] [id number] [place] [address] 54919- 1337 Oct, Diabetes type 2, uncontrolled E11.65 ; Polyneuropathy G62.9 and Pain in right wrist M25.531 [facility] [address], [place] [address]- 3222 Oct, [facility] [id number] [address]- 4667 Oct, Pain in left shoulder M25.512 [facility] [id number] [place] [address] 59877- 0106 Sep, [facility] [id number] [place] [address] 89338 2546 Sep, Pain in left shoulder M25.512 [facility] [id number] [place] [address] 45177 2546 Sep, [facility] [id number] [place] [address] 83351- 8423 August, Pain in left shoulder M25.512 [facility] [id number] [place] [address] 14024- 0106 Jul, [facility] [id number] [place] [address] 62143- 0776 Jul, [facility] [id number] [place] [address] 70382- 2547 Jul, Pain in left shoulder M25.512 [facility] [id number] [place] [address] 65852- 2376 Jun, [facility] [address], [place] [address] 2546 Jun, [facility] [id number] [place] [address] 63691 2546 Jun, Diabetes type 2, uncontrolled E11.65 ; Fibromyalgia M79.7 and Arthritis M19.90 [facility] [id number] [place] [address] 71839 2546 Jun, Pain in left shoulder M25.512 [facility] [id number], [place] [address]- 2546 May, [facility] [id number] [place] [address] 91720- 2546 May, Diabetes type 2, controlled E11.9 [facility] [address], [place] [address]- 9328 17 May, 2016 [facility] [id number] [place] [address] 27082- 8964 15 May, 2016 Uncontrolled type 2 diabetes mellitus without complication, without long-term current use of insulin E11.65 [facility] [id number] [place] [address] 65797- 3439 15 May, 2016 Pain in left shoulder M25.512 [facility] [address] [place] [address] 07584- 2832 03 May, 2016 Diabetes type 2, controlled E11.9 and Uncontrolled type 2 diabetes mellitus without complication, without long-term current use of insulin E11.65 [facility] [id number] [place] [address] 45786- 8291 Apr, [facility] [id number] [place] [address] 42263- 0315 Apr, [facility] [address] [place] [address] 63767- 4610 Mar, [facility] [id number] [place] [address] 11187- 9940 Mar, [facility] [address], [place] [address]- 6012 Mar, [facility] [id number] [place] [address] 70173- 8347 Feb, [facility] [address] [place] [address] [id number] Feb, Dental examination Z01.20 [facility] [id number] [place] [address] 93812- 0354 17 Jan, 2016 [facility] [id number] [place] [address] 88268- 1850 14 Dec, 2015 [facility] [id number] [address]- 8863 Dec, [facility] [address] [id number] [place] [address]- 9819 Dec, [facility] [address] [id number] [place] [address]- 3200 Dec, Diabetes type 2, controlled E11.9 [facility] [address] [id number] [place] [address]- 4391 Nov, [facility] [address] [id number] [place] [address]- 5841 Nov, [facility] [address] [id number] [place] [address]- 7066 Nov, [facility] [address] [id number] [place] [address]- 2293 Nov, [facility] [address] [id number] [place] [address]- 8808 Oct, [facility] [address] [id number] [place] [address]- 0836 Oct, [facility] [address] [id number] [place] [address]- 3651 Oct, [facility] [address] [id number] [place] [address]- 7290 Sep, [facility] [address] [id number] [place] [address]- 4782 Sep, Diabetes type 2, controlled E11.9 [facility] [address] [id number] [place] [address]- 2322 Sep, Diabetes type 2, controlled E11.9 [facility] [address] [id number] [place] 8926 August, [facility] [address] [id number] [place] [address]- 1914 August, [facility] [id number] [place] [address] 54956- 0707 August, Type 2 diabetes mellitus without complication E11.9 and Pain in left shoulder M25.512 [facility] [id number] [place] [address], [place] [address]- 5229 Jul, [facility] [id number] [place] [address], [place] [address]- 7840 Jul, Diabetes type 2, controlled E11.9 and Hypertension, benign I10 [facility] [id number] [place] [address], [place] [address]- 8825 Jun, [facility] [address] [place] [address]- 1890 Jun, [facility] [id number] [place] [address], [place] [address]- 3338 Jun, Diabetes 250.00 [facility] [id number] [place] [address] 98161- 3655 Jun, [facility] [id number] [place] [address] 31012- 1354 May, Diabetes type 2, uncontrolled E11.65 [facility] [id number] [place] [address] 26913- 9380 May, [facility] [id number] [place] [address] 76691- 2016 Apr, Type 2 diabetes mellitus without complication E11.9 [facility] [id number] [place] [address] 13107- 2277 Apr, Encounter for immunization Z23 [facility] [id number] [place] [address], [place] [address]- 5773 Apr, [facility] [id number] [place] [address] 92885- 3068 Mar, [facility] [id number] [place] [address] 80887- 0234 Mar, [facility] [address], [place] [address]- 7658 Mar, [facility] [address], [place] [address]- 6312 Feb, [facility] [address], [place] [address]- 7976 Jan, [facility] [id number] [place] [address] 39117- 6898 Jan, [facility] [id number] [place] [address] 66343- 2976 Jan, [facility] [id number] [place] [address] 61221- 7099 Dec, Diabetes 250.00 and COPD (chronic obstructive pulmonary disease) 496 [facility] [id number] [place] [address] 39914- 5422 Dec, [facility] [address], [place] [address]- 5040 Dec, [facility] [id number] [place] [address] 56920- 7306 Nov, [facility] [address], [place] [address]- 5099 Oct, Diabetes 250.00 [facility] [address], [place] [address]- 0426 Sep, [facility] [address], [place] [address]- 8167 Sep, [facility] [address], [place] [address]- 5209 Sep, [facility] [address], [place] [address]- 3262 Sep, Diabetes 250.00 [facility] [address], [place] [address]- 6243 Sep, [facility] [address], [place] [address]- 6767 Sep, [facility] [id number] [place] [id number]- [address] August, Hypertension, essential, benign 401.1 ; Coronary atherosclerosis of [place] coronary artery 414.01 and Diabetic neuropathy associated with type 2 diabetes mellitus 250.60 [facility] [id number] [place] [address] [id number]- [address] Jul, [facility] [id number] [place] [address]- [address] Jul, [facility] [id number] [place] [address]- 8067 Jul, [facility] [id number] [place] [address] [id number]- 8231 Jun, [facility] [id number] [place] [address]- [address]387 Jun, [facility] [id number], [place] [address] Jun, [facility] [id number], [place] [address] Jun, [facility] [id number], [place] [address] Jun, [facility] [id number], [place] [address] May, [facility] [id number], [place] [address] May, [facility] [id number] [address] May, [facility] [id number], [place] [address] May, [facility] [id number], [place] [address] May, 2014 [facility] [place] [facility] [address] [id number] [place] [address] May, [facility] [place] [facility] [address] [id number] [place] [address] May, [facility] [place] [facility] [address] [id number] [place] [address]- [address] Apr, [facility] [place] [facility] [address] [id number] [place] [address]- [address] Apr, [facility] [place] [facility] [address] [id number] [place] [address]- [address] Apr, [facility] [place] [facility] [address] [id number] [place] [address]- [address] Apr, [facility] [place] [facility] [address] [id number] [place] [address]- [address] Mar, [facility] [place] [facility] [address] [id number] [place] [address] Mar, [facility] [place] [facility] [address] [id number] [place] [address]- [address] Mar, [facility] [place] [facility] [address] [facility] [id number] [place] [address]- [address] Mar, [facility] [place] [facility] [address] [id number] [place] [address]- [address] Feb, [facility] [place] [facility] [address] [id number] [place] [address] Feb, [facility] [place] [facility] [address] [id number] [place] [address]- [address] Feb, [facility] [place] [facility] [address] [id number] [place] [address]- [address] Feb, [facility] [place] [facility] [address] [facility] [id number] [place] [address] Feb, [facility] [place] [facility] [address] [id number] [place] [address] Feb, [facility] [place] [facility] [address] [id number] [place] [address] 36[address] Feb, [facility] [place] [facility] [address] [id number] [place] [address] 35[address] Jan, [facility] [place] [facility] [address] [id number] [place] [address] 5588 Jan, [facility] [place] [facility] [address] [id number] [place] [address] 7992 Dec, [facility] [place] [facility] [address] [id number] [place] [address] 3847 Dec, [facility] [place] [facility] [address] [id number] [place] [address]- [address] Dec, [facility] [place] [facility] [address] [id number] [place] [address]- 9694 Dec, [facility] [place] [facility] [address] [id number] [place] [address]- 2017 Dec, [facility] [place] [facility] [address] [id number] [place] [address] 6169 Dec, [facility] [place] [facility] [address] [id number] [place] [address]- 5388 Dec, [facility] [place] [facility] [address] [id number] [place] [address]- 7542 Dec, [facility] [place] [facility] [address] [id number] [place] [address]- 0445 Nov, [facility] [place] [facility] [address] [id number] [place] [address]- 2675 Nov, [facility] [place] [facility] [address] [id number] [place] [address]- 8440 Nov, [facility] [place] [facility] [address] [id number] [place] [address]- 5703 Nov, [facility] [place] [facility] [address] [id number] [place] [address] Oct, [facility] [place] [facility] [address] [id number] [place] [address]- 3335 Oct, [facility] [place] [facility] [address] [id number] [place] [address]- 7064 Oct, [facility] [place] [facility] [address] [id number] [place] [address]- 3682 Oct, [facility] [place] [facility] [address] [id number] [place] [address]- 5214 Oct, [facility] [place] [facility] [address] [id number] [place] [address]- 3218 Oct, [facility] [place] [facility] [address] [id number] [place] [address]- 8902 Oct, [facility] [place] [facility] [address] [id number] [place] [address]- 7279 Oct, [facility] [place] [facility] [address] [id number] [place] [address]- 0791 Sep, [facility] [place] [facility] [address] [id number] [place] [address]- 9382 Sep, [facility] [place] [facility] [address] [id number] [place] [address]- 6938 August, [facility] [place] [facility] [address] [id number] [place] [address]- 6678 August, [facility] [place] [facility] [address] [id number] [place] [address]- 8280 Jul, [facility] [place] [facility] [address] [id number] [place] [address]- 7804 Jul, [facility] [place] [facility] [address] [id number] [place] [address]- 6488 Jul, [facility] [place] [facility] [address] [id number] [place] [address] 0956 Jul, [facility] [address] [id number] [place] [address] 1079 Jul, [facility] [address] [id number] [place] [address]- 2182 Jul, [facility] [address] [id number] [place] [address]- 5460 Jul, [facility] [address] [id number] [place] [address]- 1546 Jul, [facility] [address] [id number] [place] [address]- 9423 Jun, [facility] [address] [id number] [place] [address]- 4598 Jun, [facility] [address] [id number] [place] [address]- 0142 Jun, [facility] [address] [id number] [place] [address]- 2340 Jun, [facility] [address] [id number] [place] [address]- 2890 May, [facility] [address] [id number] [place] [address]- 1735 May, [facility] [address] [id number] [place] [address]- 9557 Apr, [facility] [address] [id number] [place] [address]- 9382 Apr, [facility] [place] [facility] [address] [id number] [place] [address]- 1390 Mar, [facility] [place] [facility] [address] [id number] [place] [address]- 7474 Mar, [facility] [address] [id number] [place] [address] Mar, [facility] [place] [facility] [address] [id number] [place] [address]- 5746 18 Mar, 2013 [facility] [place] [facility] [address] [id number] [place] [address]- 4263 18 Mar, 2013 [facility] [place] [facility] [address] [id number] [place] [address]- 1221 18 Mar, 2013 [facility] [place] [facility] [address] [id number] [place] [address]- 1761 Feb, [facility] [place] [facility] [address] [id number] [place] [address]- 0746 Feb, [facility] [place] [facility] [address] [id number] [place] [address]- 6799 Feb, [facility] [place] [facility] [address] [id number] [place] [address]- 7370 Feb, [facility] [place] [facility] [address] [id number], [place] [address]- [address] Feb, [facility] [place] [facility] [address] [id number] [place] [address]- 9254 Feb, [facility] [place] [facility] [address] [id number], [place] [address] 6[address] Feb, [facility] [place] [facility] [address] [id number], [place] [address] 5[address] Feb, [facility] [place] [facility] [address] [id number], [place] [address]- [address] 15 Jan, 2013 [facility] [place] [facility] [address] [id number], [place] [address]- 2138 15 Jan, 2013 [facility] [place] [facility] [address] [id number], [place] [address]- 1799 14 Jan, 2013 [facility] [place] [facility] [address] [id number], [place] [address]- 6001 14 Jan, 2013 [facility] [place] [facility] [address] [id number], [place] [address]- 8258 Dec, [facility] [address] [id number] [place] [address]- 7921 Dec, [facility] [place] [facility] [address] [id number] [place] [address]- 7965 Dec, [facility] [place] [facility] [address] [id number] [place] [address]- 2931 Nov, [facility] [place] [facility] [address] [id number] [place] [address]- 1999 Nov, [facility] [place] [facility] [address] [id number] [place] [address]- 0109 Oct, [facility] [place] [facility] [address] [id number] [place] [address]- 9405 Oct, [facility] [address] [id number] [place] [address]- 3719 Oct, [facility] [place] [facility] [address] [id number] [place] [address]- 0902 Sep, [facility] [place] [facility] [address] [id number] [place] [address]- 2273 Sep, [facility] [place] [facility] [address] [id number] [place] [address]- 6764 Sep, [facility] [place] [facility] [address] [id number] [place] [address]- 6213 Sep, [facility] [place] [facility] [address] [id number], [place] [address]- 6709 Sep, [facility] [place] [facility] [address] [id number] [place] [address]- 2270 Sep, [facility] [place] [facility] [address] [id number] [place] [address]- 2120 August, [facility] [place] [facility] [address] [id number] [place] [address]- 5242 August, [facility] [place] [facility] [address] [id number] [place] [address]- 2377 August, [facility] [address] [id number] [place] [address]- 0625 August, [facility] [place] [facility] [address] [id number] [place] [address]- 0812 August, [facility] [address] [id number] [place] [address]- 1740 August, [facility] [address] [id number] [place] [address]- 8832 August, [facility] [address] [id number] [place] [address]- 6982 Jul, [facility] [address] [id number] [place] [address]- 2325 Jul, [facility] [address] [id number] [place] [address]- 0663 Jun, [facility] [address] [id number] [place] [address]- 5745 Jun, [facility] [address] [id number] [place] [address]- 1467 May, [facility] [address] [id number] [place] [address]- 1760 May, [facility] [address] [id number] [place] [address]- 3644 Apr, [facility] [place] [facility] [address] [id number] [place] [address]284 Mar, [facility] [place] [facility] [address] [id number] [place] [address]- 8067 Mar, [facility] [place] [facility] [address] [id number] [place] [address]- 2278 Mar, [facility] [place] [facility] [address] [id number] [place] [address]- 9359 Mar, [facility] [place] [facility] [address] [id number] [place] [address] Mar, [facility] [place] [facility] [address] [id number] [place] [address]- 2418 Mar, [facility] [place] [facility] [address] [facility] [id number] [place] [address]- 9183 Feb, [facility] [place] [facility] [address] [id number] [place] [address]- 4695 Feb, [facility] [place] [facility] [address] [id number] [place] [address]- 1343 Feb, [facility] [place] [facility] [address] [facility] [id number] [place] [address]- 3243 Feb, [facility] [place] [facility] [address] [facility] [id number] [place] [address]- 9800 Feb, [facility] [place] [facility] [address] [id number], [place] [address]- 8399 Feb, [facility] [place] [facility] [address] [id number], [place] [address]- 4273 Feb, [facility] [place] [facility] [address] [facility] [id number], [place] [address]- 2035 Feb, [facility] [place] [facility] [address] [id number], [place] [address]- 6760 Jan, [facility] [place] [facility] [address] [id number], [place] [address]- 3532 Jan, [facility] [place] [facility] [address] [id number] [place] [address]- 2170 28 Dec, 2011 [facility] [place] [facility] [address] [facility] [id number], [place] [address]- 6114 19 Dec, 2011 [facility] [place] [facility] [address] [facility] [id number], [place] [address]- 8902 18 Dec, 2011 [facility] [place] [facility] [address] [id number] [place] [address]- 0645 Dec, [facility] [address] [id number] [place] [address]- 3159 Dec, [facility] [place] [facility] [address] [id number] [place] [address] Nov, [facility] [address] [id number] [place] [address]- 3889 Oct, [facility] [place] [facility] [address] [id number] [place] [address]- 2127 Oct, [facility] [place] [facility] [address] [id number] [place] [address]- 6150 Sep, [facility] [place] [facility] [address] [id number] [place] [address]- 1791 Sep, [facility] [place] [facility] [address] [id number] [place] [address]- 8359 Sep, [facility] [place] [facility] [address] [id number] [place] [address]- 8480 Sep, [facility] [place] [facility] [address] [id number] [place] [address]- 1797 Sep, [facility] [place] [facility] [address] [id number] [place] [address]- 8624 Sep, [facility] [place] [facility] [address] [id number] [place] [address]- 8302 Sep, [facility] [place] [facility] [address] [id number] [place] [address]- 1684 Sep, [facility] [place] [facility] [address] [id number] [place] [address]- 6201 August, [facility] [place] [facility] [address] [id number] [place] [address]- 0773 August, [facility] [place] [facility] [address] [id number] [place] [address]- 2980 August, [facility] [place] [facility] [address] [id number] [place] [address]- 4386 Jul, [facility] [place] [facility] [address] [id number] [place] [address] 2546 Jul, [facility] [place] [facility] [address] [id number] [place] [address] 2546 Jun, [facility] [place] [facility] [address] [id number] [place] [address] 2546 Jun, [facility] [place] [facility] [address] [id number] [place] [address] 2540 Jun, [facility] [place] [facility] [address] [id number] [place] [address]- 3996 Jun, [facility] [address] [id number] [place] [address]- 2478 May, [facility] [place] [facility] [address] [id number] [place] [address]- 0540 May, [facility] [place] [facility] [address] [id number] [place] [address]- 9483 Apr, [facility] [address] [id number] [place] [address]- 2178 Apr, [facility] [place] [facility] [address] [id number] [place] [address] 2546 Apr, [facility] [place] [facility] [address] [id number], [place] [address]- 7788 Mar, [facility] [place] [facility] [address] [id number] [place] [address] 2549 Mar, [facility] [place] [facility] [address] [id number] [place] [address]- 1766 Mar, [facility] [place] [facility] [address] [id number] [place] [address]- 2546 Feb, [facility] [place] [facility] [address] [id number], [place] [address]- 7563 Feb, [facility] [address] [id number] [place] [address]- 4537 Feb, [facility] [place] [facility] [address] [facility] [id number], [place] [address]- 6643 Feb, [facility] [place] [facility] [address] [facility] [id number] [place] [address]- 7602 Jan, [facility] [place] [facility] [address] [id number] [place] [address]- 4062 14 Jan, 2011 [facility] [place] [facility] [address] [facility] [id number] [place] [address], [place] [address]- 4165 Jan, [facility] [place] [facility] [address] [facility] [id number] [place] [address]- 5518 16 Dec, 2010 [facility] [id number] [place] [address]- 5102 Oct, [facility] [place] [facility] [address] [facility] [id number], [place] [address]- 3096 Mar, [facility] [place] [facility] [address] [id number], [place] [address]- 1045 Feb, [facility] [place] [facility] [address] [id number], [place] [address]- 8172 Feb, [facility] [place] [facility] [address] [facility] [id number], [place] [address]- 5532 16 May, 2009 [facility] [place] [facility] [address] [facility] [id number], [place] [address]- 6621 Apr, [facility] [place] [facility] [address] [facility] [id number], [place] [address]- 1549 Mar, [facility] [place] [facility] [address] [facility] [id number], [place] [address]- 8701 30 Jan, 2009 [facility] [place] [facility] [address] [facility] [id number], [place] [address]- 6102 15 Oct, 2008 [facility] [place] [facility] [address] [facility] [id number] [place] [address]- 2546 Jul, [facility] [address] [facility] [id number], [place] [address]- 2546 Mar, [facility] [address] [facility] [id number], [place] [address]- 2546 Feb, [facility] [address] [facility] [id number], [place] [address]- 9116 Jan, IMMUNIZATIONS No Known Immunizations SOCIAL HISTORY Never Assessed REASON FOR VISIT Refill Request PLAN OF CARE VITAL SIGNS MEDICATIONS Medication Instructions Dosage Frequency Start Date End Date Duration Status Trulicity 1.5 MG/0.5ML Subcutaneous once weekly on Thursday Inject Jan, 90 days Active RESULTS No Results PROCEDURES No [...]
--- OUTSIDE RECORDS SUMMARY | 2018-07-05 12:16 | XMS REPORT ---
Author Author KATHYA FISCHER Organization 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 Name Role Phone KATHYA FISCHER Unavailable PROBLEMS Type Condition ICD9-CM Code ORI18-FH Code Onset Dates Condition Status SNOMED Code Problem Arthritis M19.90 Active 5137749 Problem 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 Active 61967000 Problem Polyneuropathy G62.9 Active 28965029 Problem Other male erectile dysfunction N52.8 Active 283980148 Problem Constipation K59.00 Active 72060489 Problem Type 2 diabetes mellitus with 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 E11.65 Active 945462646 Problem Controlled type 2 diabetes mellitus without complication, without long -term current use of insulin E11.9 Active 202513534 Problem FDC current use of insulin Z79.4 Active 275648154 Problem Neuropathy G62.9 Active 067585543 Problem Obstructive sleep apnea G47.33 Active 82812645 Problem Hypertension, benign I10 Active 46580276 Problem Uncontrolled type 2 diabetes mellitus without complication, without long-term current use of insulin E11.65 Active 959002617 Problem Stress incontinence of urine N39.3 Active 63581242 Problem Fibromyalgia M79.7 Active 460286089 ALLERGIES No Information ENCOUNTERS Encounter Location Date Diagnosis [facility] [id number], [place] [address] Feb, [facility] [address], [place] [address] 18[address] Jan, [facility] [id number] [place] [address] 24071- 3443 Jan, [facility] [address], [place] [address] Jan, Uncontrolled type 2 diabetes mellitus without complication, without long-term current use of insulin E11.65 [id number] [place] [address] 62634- 2055 Jan, [facility] [id number] [place] [address] 46255- 3888 Dec, Therapeutic drug monitoring Z51.81 and Controlled type 2 diabetes mellitus without complication, without long-term current use of insulin E11.9 [facility] [id number] [place] [address] 75603 2546 Dec, Renal insufficiency N28.9 [facility] [address] [address] 2544 Dec, [facility] [address] 07187- 7538 Dec, Dizziness R42 [facility] [address] 82899- 6726 Dec, Dizziness R42 and Encounter for immunization Z23 [facility] [address] 86296- 4103 Dec, Therapeutic drug monitoring Z51.81 and Controlled type 2 diabetes mellitus without complication, without long-term current use of insulin E11.9 [facility] [id number] [place] [address] 05294- 7170 Dec, [facility] [id number] [place] [address] 56942- 8981 Dec, [facility] [id number] [place] [address] 23379 254 Dec, [facility] [id number] [place] [address] 37037- 4979 Nov, [facility] [address] [address] 254 Nov, Therapeutic drug monitoring Z51.81 [facility] [id number] [place] [address] 81663- 8776 Nov, [facility] [id number] [place] [address] 68463- 6563 Nov, Therapeutic drug monitoring Z51.81 ; Fibromyalgia M79.7 and Controlled type 2 diabetes mellitus without complication, without long-term current use of insulin E11.9 [facility] [id number] [place] [address] 07688- 2547 Nov, Type 2 diabetes mellitus with 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 E11.65 [facility] [id number] [place] [address] 68260- 6447 Nov, [facility] [id number] [place] [address] 48207- 0427 Nov, [facility] [id number] [place] [address] 20537- 6002 Nov, Type 2 diabetes mellitus with 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 E11.65 [id number] [place] [address] 13312- 3873 Nov, [facility] [id number] [place] [address] 92821- 9483 Nov, [facility] [id number] [place] [address] 86701- 8694 Nov, Constipation K59.00 [facility] [id number] [place] [address] 24955- 6828 Oct, Diabetes type 2, controlled E11.9 [facility] [id number] [place] [address] 54804- 1936 Oct, Type 2 diabetes mellitus with 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 E11.65 ; FDC current use of insulin Z79.4 and Neuropathy G62.9 [facility] [id number] [place] [address] 36706- 2035 Oct, [facility] [id number] [place] [address] 49348- 9621 Oct, [facility] [id number] [place] [address] 58630- 4311 Oct, [facility] [address], [place] [address]- 5751 Oct, [facility] [address], [place] [address]- 2584 Oct, [facility] [address], [place] [address]- 8700 Oct, [facility] [address], [place] [address]- 8850 Oct, [facility] [address], [place] [address]- 4242 Sep, [facility] [id number] [place] [address] 05306- 0865 Sep, Uncontrolled type 2 diabetes mellitus without complication, without long-term current use of insulin E11.65 [place] [address], [place] [address]- 4994 Sep, Hypertension, benign I10 ; Fibromyalgia M79.7 ; Controlled type 2 diabetes mellitus without complication, without long-term current use of insulin E11.9 and Uncontrolled type 2 diabetes mellitus without complication, without long-term current use of insulin E11.65 [place] [address], [place] [address]- 8659 Sep, [facility] [address], [place] [address]- 7826 Sep, Uncontrolled type 2 diabetes mellitus without complication, without long-term current use of insulin E11.65 [facility] [address], [place] [address]- 5748 Sep, [facility] [address], [place] [address]- 2474 Sep, [facility] [address], [place] [address]- 3613 Sep, Uncontrolled type 2 diabetes mellitus without complication, without long-term current use of insulin E11.65 and Fibromyalgia M79.7 [facility] [id number] [place] [address]- 4430 August, [facility] [id number] [place] [address] 95612- 8248 August, [facility] [id number] [place] [address] 58811- 9090 August, [facility] [address] 93835- 6351 August, Fibromyalgia M79.7 [facility] [address] 51004- 5275 Jul, Hypertension, benign I10 [facility] [address] 11906- 4971 Jul, Fibromyalgia M79.7 [facility] [address] 36946- 7496 Jul, [facility] [address] 90779- 8759 Jun, [facility] [id number] [place] [address] 53239- 0877 Jun, Hypertension, benign I10 ; Arthritis M19.90 ; FDC current use 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 Z79.891 and Uncontrolled type 2 diabetes mellitus without complication, without long-term current use of insulin E11.65 [facility] [id number] [place] [address] 98139 -6257 Jun, Acute nasopharyngitis J00 and BMI 50.0-59.9, adult Z68.43 [facility] [id number] [place] [address] 90467- 2002 Jun, Fibromyalgia M79.7 [facility] [id number] [place] [address] 00846- 0218 May, [facility] [id number] [place] [address] 85782- 9902 May, Fibromyalgia M79.7 [facility] [address], [place] [address] 2546 Apr, Fibromyalgia M79.7 [facility] [id number] [place] [address] 27679 2546 Apr, [facility] [id number] [place] [address] 81405 2546 Apr, [facility] [id number] [place] [address] 86185 2546 Apr, Arthritis M19.90 [facility] [id number] [place] [address] 01527 2546 Apr, Arthritis M19.90 [facility] [id number] [place] [address] 19257 2546 Apr, Arthritis M19.90 and Controlled type 2 diabetes mellitus without complication, without long-term current use of insulin E11.9 [facility] [address], [place] [address] 2546 Apr, [facility] [id number] [place] [address] 91693 2546 Apr, Fibromyalgia M79.7 [facility] [id number] [place] [address] 31363 2546 Mar, [facility] [address], [place] [address] 2546 Mar, [facility] [id number] [place] [address] 24170 2546 Mar, Fibromyalgia M79.7 [facility] [address], [place] [address] 2546 Feb, [facility] [id number], [place] [address] 2546 Feb, [facility] [address], [place] [address] 2546 Feb, [facility] [id number] [place] [address] 64005- 2024 Feb, Fibromyalgia M79.7 [facility] [id number] [place] [address] 86534- 4096 Feb, Diabetes type 2, uncontrolled E11.65 and Encounter for immunization Z23 [facility] [id number] [place] [address] 60479- 8582 Jan, [facility] [address] 41935- 2816 Jan, Fibromyalgia M79.7 [facility] [id number] [place] [address] 62771- 3258 Dec, [facility] [id number] [place] [address] 10155- 7142 Dec, Fibromyalgia M79.7 [facility] [id number] [place] [address] 59849- 9553 Nov, [facility] [id number] [place] [address] 97032- 9535 Nov, [facility] [id number] [place] [address] 95108- 1200 Nov, 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 and Polyneuropathy G62.9 [facility] [id number] [place] [address] 28152- 4438 Nov, [facility] [id number] [place] [address] 80331- 9891 Nov, [facility] [id number] [place] [address] 20808- 9939 Oct, Diabetes type 2, uncontrolled E11.65 [facility] [id number] [place] [address] 73483- 4106 Oct, Diabetes type 2, uncontrolled E11.65 ; Polyneuropathy G62.9 and Pain in right wrist M25.531 [facility] [id number], [place] [address]- 9326 Oct, [facility] [address] [place] [address] 71906- 7226 Oct, Pain in left shoulder M25.512 [facility] [address], [place] [address] 2546 Sep, [facility] [id number] [place] [address] 48164 2546 Sep, Pain in left shoulder M25.512 [facility] [address], [place] [address]- 2776 Sep, [facility] [id number] [place] [address] 95325- 2399 August, Pain in left shoulder M25.512 [facility] [id number] [place] [address] 70080- 5196 Jul, [facility] [address], [place] [address]- 4981 Jul, [facility] [id number] [place] [address] 15969- 7608 Jul, Pain in left shoulder M25.512 [facility] [address], [place] [address]- 2446 Jun, [facility] [address], [place] [address] 2546 Jun, [facility] [address], [place] [address]- 2546 Jun, Diabetes type 2, uncontrolled E11.65 ; Fibromyalgia M79.7 and Arthritis M19.90 [facility] [address], [place] [address]- 6816 Jun, Pain in left shoulder M25.512 [facility] [address], [place] [address]- 6836 May, [facility] [address], [place] [address]- 7675 May, Diabetes type 2, controlled E11.9 [facility] [address], [place] [address]- 6536 17 May, 2016 [facility] [address], [place] [address]- 5604 May, Uncontrolled type 2 diabetes mellitus without complication, without long-term current use of insulin E11.65 [facility] [address], [place] [address]- 6184 May, Pain in left shoulder M25.512 [facility] [id number] [place] [address] 32325- 0446 03 May, 2016 Diabetes type 2, controlled E11.9 and Uncontrolled type 2 diabetes mellitus without complication, without long-term current use of insulin E11.65 [facility] [address], [place] [address]- 4880 Apr, [facility] [address], [place] [address]- 2339 Apr, [facility] [id number] [place] [address] 38785- 0866 Mar, [facility] [address], [place] [address]- 7627 Mar, [facility] [address], [place] [address]- 7520 Mar, [facility] [address], [place] [address]- 6848 Feb, [facility] [address] [id number] Feb, Dental examination Z01.20 [facility] [address], [place] [address]- 6663 Jan, [facility] [id number] [place] [address]- 6412 14 Dec, 2015 [facility] [address] [id number] [place] [address]- 9844 Dec, [facility] [address] [id number] [place] [address]- 6165 Dec, [facility] [address] [id number] [place] [address]- 4342 Dec, Diabetes type 2, controlled E11.9 [facility] [address] [id number] [place] [address]- 6701 Nov, [facility] [address] [id number] [place] [address]- 6156 Nov, [facility] [address] [id number] [place] [address]- 4849 Nov, [facility] [address] [id number] [place] [address]- 4688 Nov, [facility] [address] [id number] [place] [address]- 3206 Oct, [facility] [address] [id number] [place] [address]- 1019 Oct, [facility] [address] [facility] [id number] [place] [address]- 7970 Oct, [facility] [address] [id number] [place] [address]- 4326 Sep, [facility] [address] [id number] [place] [address]- 0093 Sep, Diabetes type 2, controlled E11.9 [facility] [address] [id number] [place] [address]- 2524 Sep, Diabetes type 2, controlled E11.9 [facility] [address] [id number] [place] [address]- 8166 August, [facility] [id number] [place] [address] 68734- 3467 August, [facility] [id number] [place] [address] 64915- 5893 August, Type 2 diabetes mellitus without complication E11.9 and Pain in left shoulder M25.512 [facility] [id number] [place] [address] 32414- 4277 Jul, [facility] [id number] [place] [address] 76664- 8829 Jul, Diabetes type 2, controlled E11.9 and Hypertension, benign I10 [facility] [address] [address]- [address] Jun, [facility] [id number] [place] [address] 02357- 2938 Jun, [facility] [id number] [place] [address] 36224- 4910 Jun, Diabetes 250.00 [facility] [id number] [place] [address] 30636- 7831 Jun, [facility] [id number] [place] [address] 90948- 4243 May, Diabetes type 2, uncontrolled E11.65 [facility] [id number] [place] [address] 01979- 6310 May, [facility] [id number] [place] [address] 35229- 6598 Apr, Type 2 diabetes mellitus without complication E11.9 [facility] [id number] [place] [address] [id number]- 0695 Apr, Encounter for immunization Z23 [facility] [id number] [place] [address] 37594- 2544 Apr, [facility] [id number] [place] [address] 05480- 4484 Mar, [facility] [address] [facility] [id number] [address] Mar, [facility] [id number] [address] 1648 Mar, [facility] [id number] [address] 8903 Feb, [facility] [id number] [place] [address] 36544- [phone] Jan, [facility] [id number] [address] 9685 Jan, [facility] [id number] [place] [address] 41698- 9984 Jan, [facility] [id number] [place] [address] 9665 Dec, Diabetes 250.00 and COPD (chronic obstructive pulmonary disease) 496 [facility] [id number] [place] [address] 6354 Dec, [facility] [id number] [place] [address] 47593- 3203 Dec, [facility] [id number] [place] [address] Nov, [facility] [id number] [address] 8389 Oct, Diabetes 250.00 [facility] [id number], [place] [address] 7343 Sep, [facility] [id number] [address]- 9239 Sep, [facility] [id number], [place] [address]- 4596 Sep, [facility] [id number] [address] 3902 Sep, Diabetes 250.00 [facility] [address] [facility] [id number] [address]- 5017 Sep, [facility] [id number] [place] [address] 556255- 7291 Sep, [facility] [id number] August, Hypertension, essential, benign 401.1 ; Coronary atherosclerosis of [place] coronary artery 414.01 and Diabetic neuropathy associated with type 2 diabetes mellitus 250.60 [facility] [id number], [place] [address]- 7324 Jul, [facility] [id number] [place] [address] 57789- 2324 Jul, [facility] [facility] [address] [id number] [address] [address] Jul, [facility] [id number] [place] [address] Jun, [facility] [id number], [place] [address] Jun, [facility] [id number], [place] [address] Jun, [facility] [id number], [place] [address] Jun, [facility] [id number], [place] [address] Jun, [facility] [id number] [address] May, [facility] [id number] [address] May, [facility] [id number], [place] [address] May, [facility] [id number], [place] [address] May, 2014 [facility] [place] [facility] [address] [id number] [place] [address]- 8181 May, 2014 [facility] [place] [facility] [address] [id number] [place] [address]- 8356 May, [facility] [place] [facility] [address] [id number] [place] [address]- 6596 May, [facility] [place] [facility] [address] [id number] [place] [address]- 3032 Apr, [facility] [place] [facility] [address] [id number] [place] [address]- 7779 Apr, [facility] [place] [facility] [address] [id number] [place] [address]- 7153 Apr, [facility] [place] [facility] [address] [facility] [id number] [place] [address]- 1990 Apr, [facility] [place] [facility] [address] [facility] [id number] [place] [address]- 3577 Mar, [facility] [place] [facility] [address] [id number] [place] [address]- 8772 Mar, [facility] [place] [facility] [address] [facility] [id number] [place] [address]- 5519 Mar, [facility] [place] [facility] [address] [facility] [id number] [place] [address]- 0596 Mar, [facility] [place] [facility] [address] [id number], [place] [address]- 18[address] Feb, [facility] [place] [facility] [address] [id number] [place] [address]- 2679 Feb, [facility] [place] [facility] [address] [facility] [id number] [place] [address]- 4012 Feb, [facility] [place] [facility] [address] [facility] [id number] [place] [address] Feb, [facility] [place] [facility] [address] [id number] [place] [address]- 8365 Feb, [facility] [place] [facility] [address] [id number] [place] [address]- 9855 Feb, [facility] [place] [facility] [address] [id number] [place] [address]- 1002 Feb, [facility] [place] [facility] [address] [id number] [place] [address]- 1289 Jan, [facility] [place] [facility] [address] [id number] [place] [address]- 3455 Jan, [facility] [place] [facility] [address] [id number] [place] [address]- 2533 Dec, [facility] [place] [facility] [address] [id number] [place] [address]- 9100 Dec, [facility] [place] [facility] [address] [id number] [place] [address]- 5615 Dec, [facility] [place] [facility] [address] [id number] [place] [address]- 5841 Dec, [facility] [place] [facility] [address] [id number] [place] [address]- 3198 Dec, [facility] [place] [facility] [address] [id number] [place] [address]- 4454 Dec, [facility] [place] [facility] [address] [id number] [place] [address]- 7247 Dec, [facility] [place] [facility] [address] [id number] [place] [address]- 1554 Dec, [facility] [place] [facility] [address] [id number] [place] [address]- 5172 Nov, [facility] [place] [facility] [address] [id number] [place] [address]- 3076 Nov, [facility] [place] [facility] [address] [id number] [place] [address]- 9503 Nov, [facility] [place] [facility] [address] [id number] [place] [address]- 1704 Nov, [facility] [place] [facility] [address] [id number] [place] [address]- 6623 Oct, [facility] [place] [facility] [address] [id number] [place] [address]- 6885 Oct, [facility] [place] [facility] [address] [id number] [place] [address]- 0103 Oct, [facility] [place] [facility] [address] [id number] [place] [address]- 5033 Oct, [facility] [place] [facility] [address] [id number] [place] [address]- 2863 Oct, [facility] [place] [facility] [address] [id number] [place] [address]- 9851 Oct, [facility] [place] [facility] [address] [id number] [place] [address]- 4397 Oct, [facility] [place] [facility] [address] [id number] [place] [address]- 2766 Oct, [facility] [place] [facility] [address] [id number] [place] [address]- 1703 Sep, [facility] [place] [facility] [address] [id number] [place] [address]- 8185 Sep, [facility] [place] [facility] [address] [id number] [place] [address]- 0602 August, [facility] [place] [facility] [address] [id number] [place] [address]- 5946 August, [facility] [place] [facility] [address] [id number] [place] [address]- 4536 Jul, [facility] [place] [facility] [address] [id number] [place] [address]- 2808 Jul, [facility] [place] [facility] [address] [id number] [place] [address]- 3124 Jul, [facility] [address] [id number] [place] [address]- 3484 Jul, [facility] [address] [id number] [place] [address]- 5649 Jul, [facility] [address] [id number] [place] [address]- 9125 Jul, [facility] [address] [id number] [place] [address]- 3563 Jul, [facility] [address] [id number] [place] [address]- 8414 Jul, [facility] [address] [id number] [place] [address]- 6710 Jun, [facility] [address] [id number] [place] [address]- 6978 Jun, [facility] [address] [id number] [place] [address]- 0290 Jun, [facility] [address] [id number] [place] [address]- 2322 Jun, [facility] [address] [id number] [place] [address]- 2050 May, [facility] [address] [id number] [place] [address]- 9595 May, [facility] [address] [id number] [place] [address]- 8554 Apr, [facility] [place] [facility] [address] [id number] [place] [address]- 5698 Apr, [facility] [place] [facility] [address] [id number] [place] [address]- 2290 Mar, [facility] [address] [id number] [place] [address]- 9460 Mar, [facility] [place] [facility] [address] [id number] [place] [address]- 6529 Mar, [facility] [place] [facility] [address] [id number] [place] [address]- 8746 Mar, [facility] [place] [facility] [address] [id number] [place] [address]- 3187 Mar, [facility] [place] [facility] [address] [id number] [place] [address]- 8752 Mar, [facility] [place] [facility] [address] [id number] [place] [address]- 3794 Feb, [facility] [place] [facility] [address] [id number] [place] [address]- 2686 Feb, [facility] [place] [facility] [address] [id number] [place] [address]- 4619 Feb, [facility] [place] [facility] [address] [id number], [place] [address]- 8717 Feb, [facility] [place] [facility] [address] [id number] [place] [address]- 1965 Feb, [facility] [place] [facility] [address] [id number], [place] [address]- 0643 Feb, [facility] [place] [facility] [address] [id number], [place] [address]- 7469 Feb, [facility] [place] [facility] [address] [id number], [place] [address]- 8936 12 Feb, 2013 [facility] [place] [facility] [address] [id number], [place] [address]- 7690 15 Jan, 2013 [facility] [place] [facility] [address] [id number], [place] [address]- 8199 15 Jan, 2013 [facility] [place] [facility] [address] [id number], [place] [address]- 0674 14 Jan, 2013 [facility] [place] [facility] [address] [id number], [place] [address]- 1197 14 Jan, 2013 [facility] [address] [id number] [place] [address]- 8294 18 Dec, 2012 [facility] [place] [facility] [address] [id number] [place] [address]- 6718 Dec, [facility] [place] [facility] [address] [id number] [place] [address]- 9340 Dec, [facility] [place] [facility] [address] [id number] [place] [address]- 6844 Nov, [facility] [place] [facility] [address] [id number] [place] [address]- 5758 Nov, [facility] [place] [facility] [address] [id number] [place] [address]- 3172 Oct, [facility] [address] [id number] [place] [address]- 5949 Oct, [facility] [place] [facility] [address] [id number] [place] [address]- 0047 Oct, [facility] [place] [facility] [address] [id number] [place] [address]- 8891 Sep, [facility] [place] [facility] [address] [id number] [place] [address]- 0714 Sep, [facility] [place] [facility] [address] [id number] [place] [address]- 9618 Sep, [facility] [place] [facility] [address] [id number], [place] [address]- 1311 Sep, [facility] [place] [facility] [address] [id number] [place] [address]- 3570 Sep, [facility] [place] [facility] [address] [id number] [place] [address]- 1844 Sep, [facility] [place] [facility] [address] [id number] [place] [address]- 3914 August, [facility] [place] [facility] [address] [id number] [place] [address]- 2123 August, [facility] [address] [id number] [place] [address]- 7259 August, [facility] [address] [id number] [place] [address]- 1605 August, [facility] [address] [id number] [place] [address]- 6690 August, [facility] [address] [id number] [place] [address]- 6938 August, [facility] [address] [id number] [place] [address]- 2122 August, [facility] [address] [id number] [place] [address]- 4797 Jul, [facility] [address] [id number] [place] [address]- 3977 Jul, [facility] [address] [id number] [place] [address]- 4099 Jun, [facility] [address] [id number] [place] [address]- 5498 Jun, [facility] [address] [id number] [place] [address]- 6555 May, [facility] [address] [id number] [place] [address]- 5662 May, [facility] [place] [facility] [address] [id number] [place] [address]- 4192 Apr, [facility] [place] [facility] [address] [id number] [place] [address]- 1690 Mar, [facility] [place] [facility] [address] [id number] [place] [address]- 4060 Mar, [facility] [place] [facility] [address] [id number] [place] [address]- 6954 Mar, [facility] [place] [facility] [address] [id number] [place] [address]- 9954 Mar, [facility] [place] [facility] [address] [id number] [place] [address]- 7572 Mar, [facility] [place] [facility] [address] [facility] [id number] [place] [address]- 0468 Mar, [facility] [place] [facility] [address] [id number], [place] [address]- 5047 Feb, [facility] [place] [facility] [address] [id number] [place] [address]- 1119 Feb, [facility] [place] [facility] [address] [id number], [place] [address]- 0942 Feb, [facility] [place] [facility] [address] [id number], [place] [address]- 2197 Feb, [facility] [place] [facility] [address] [id number], [place] [address]- 0729 Feb, [facility] [place] [facility] [address] [id number], [place] [address]- 7782 Feb, [facility] [place] [facility] [address] [facility] [id number], [place] [address]- 5070 Feb, [facility] [place] [facility] [address] [id number], [place] [address]- 0051 Feb, [facility] [place] [facility] [address] [id number], [place] [address]- 0453 Jan, [facility] [place] [facility] [address] [id number], [place] [address]- 1776 Jan, [facility] [place] [facility] [address] [facility] [id number], [place] [address]- 4173 Dec, [facility] [place] [facility] [address] [id number], [place] [address]- 3404 Dec, [facility] [place] [facility] [address] [id number] [place] [address]- 7621 Dec, [facility] [place] [facility] [address] [id number] [place] [address]- 3926 Dec, [facility] [place] [facility] [address] [id number] [place] [address]- 4656 Dec, [facility] [place] [facility] [address] [id number] [place] [address]- 7376 Nov, [facility] [place] [facility] [address] [id number] [place] [address]- 2668 Oct, [facility] [place] [facility] [address] [id number] [place] [address]- 6145 Oct, [facility] [place] [facility] [address] [id number] [place] [address]- 0303 Sep, [facility] [place] [facility] [address] [id number] [place] [address]- 3082 Sep, [facility] [place] [facility] [address] [id number] [place] [address]- 0840 Sep, [facility] [place] [facility] [address] [id number] [place] [address]- 4436 Sep, [facility] [place] [facility] [address] [id number] [place] [address]- 6322 Sep, [facility] [place] [facility] [address] [id number] [place] [address]- 8294 Sep, [facility] [place] [facility] [address] [id number] [place] [address]- 1376 Sep, [facility] [place] [facility] [address] [id number] [place] [address]- 9654 Sep, [facility] [place] [facility] [address] [id number] [place] [address]- 2020 August, [facility] [place] [facility] [address] [id number] [place] [address]- 5699 August, [facility] [place] [facility] [address] [id number] [place] [address]- 5682 August, [facility] [place] [facility] [address] [id number] [place] [address]- 8573 Jul, [facility] [place] [facility] [address] [id number] [place] [address]- 1006 Jul, [facility] [place] [facility] [address] [id number] [place] [address]- 7696 Jun, [facility] [place] [facility] [address] [id number] [place] [address]- 9009 Jun, [facility] [place] [facility] [address] [id number] [place] [address]- 9696 Jun, [facility] [place] [facility] [address] [id number] [place] [address]- 0288 Jun, [facility] [place] [facility] [address] [id number] [place] [address]- 0302 May, [facility] [place] [facility] [address] [id number] [place] [address]- 6047 May, [facility] [place] [facility] [address] [id number] [place] [address]- 2169 Apr, [facility] [place] [facility] [address] [id number] [place] [address]- 5466 Apr, [facility] [place] [facility] [address] [id number], [place] [address]- 4409 Apr, [facility] [place] [facility] [address] [id number] [place] [address]- 7515 Mar, [facility] [place] [facility] [address] [id number] [place] [address]- 6256 Mar, [facility] [place] [facility] [address] [id number] [place] [address]- 2406 Mar, [facility] [place] [facility] [address] [id number], [place] [address]- 4915 Feb, [facility] [place] [facility] [address] [id number] [place] [address]- 2531 Feb, [facility] [place] [facility] [address] [id number], [place] [address]- 7696 Feb, [facility] [place] [facility] [address] [facility] [id number] [place] [address]- 2621 Feb, [facility] [place] [facility] [address] [id number] [place] [address]- 3634 Jan, [facility] [place] [facility] [address] [facility] [id number] [place] [address], [place] [address]- 9797 14 Jan, 2011 [facility] [place] [facility] [address] [facility] [id number] [place] [address]- 0543 Jan, [facility] [id number] [place] [address]- 9549 Dec, [facility] [place] [facility] [address] [facility] [id number], [place] [address]- 4190 Oct, [facility] [place] [facility] [address] [id number], [place] [address]- 9327 Mar, [facility] [place] [facility] [address] [id number], [place] [address]- 3088 Feb, [facility] [place] [facility] [address] [facility] [id number], [place] [address]- 6584 Feb, [facility] [place] [facility] [address] [facility] [id number], [place] [address]- 0956 May, [facility] [place] [facility] [address] [facility] [id number], [place] [address]- 0679 Apr, [facility] [place] [facility] [address] [facility] [id number], [place] [address]- 4067 29 Mar, 2009 [facility] [place] [facility] [address] [facility] [id number], [place] [address]- 9920 30 Jan, 2009 [facility] [place] [facility] [address] [facility] [id number], [place] [address]- 2546 Oct, [facility] [address] [id number], [place] [address]- 3216 Jul, [facility] [address] [id number], [place] [address] Mar, [facility] [address] [id number], [place] [address] Feb, [facility] [address] [facility] [id number], [place] [address] Jan, IMMUNIZATIONS No Known Immunizations SOCIAL HISTORY Never Assessed REASON FOR VISIT Prior Authorization Request/ PLAN OF CARE VITAL SIGNS MEDICATIONS Unknown [...]
--- OUTSIDE RECORDS SUMMARY | 2018-07-05 12:17 | XMS REPORT ---
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 Name Role Phone KATHYA FISCHER Unavailable PROBLEMS Type Condition ICD9-CM Code [id number] Code Onset Dates Condition Status SNOMED Code Problem Arthritis M19.90 Active 5130483 Problem 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 Active 19633100 Problem Polyneuropathy G62.9 Active 42019911 Problem Other male erectile dysfunction N52.8 Active 492062429 Problem Constipation K59.00 Active 79316248 Problem Type 2 diabetes mellitus with 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 E11.65 Active 455035244 Problem Controlled type 2 diabetes mellitus without complication, without long -term current use of insulin E11.9 Active 425590784 Problem care home current use of insulin Z79.4 Active 034847676 Problem Neuropathy G62.9 Active 422290322 Problem Obstructive sleep apnea G47.33 Active 73563096 Problem Hypertension, benign I10 Active 48950632 Problem Uncontrolled type 2 diabetes mellitus without complication, without long-term current use of insulin E11.65 Active 780870778 Problem Stress incontinence of urine N39.3 Active 78836587 Problem Fibromyalgia M79.7 Active 728220487 ALLERGIES No Information ENCOUNTERS Encounter Location Date Diagnosis [facility] [id number] [place] [address] 51925- 5134 Feb, [facility] [id number] [place] [address] 79446- 2674 Jan, [facility] [id number] [place] [address] 07683- 7196 Dec, Therapeutic drug monitoring Z51.81 and Controlled type 2 diabetes mellitus without complication, without long-term current use of insulin E11.9 [facility] [id number] [place] [address] 31523- 6398 Dec, Renal insufficiency N28.9 [facility] [id number] [place] [address] 96602- 7303 Dec, [place] [address] [address] 2546 Dec, Dizziness R42 [facility] [address] [address] 2546 Dec, Dizziness R42 and Encounter for immunization Z23 [place] [address] 09126- 5195 Dec, Therapeutic drug monitoring Z51.81 and Controlled type 2 diabetes mellitus without complication, without long-term current use of insulin E11.9 [place] [id number] [place] [address] 74621- 7976 Dec, [place] [address] 54889- 3261 Dec, [place] [address] 22022- 4698 Dec, [place] [address] 68624- 2478 Nov, [place] [id number] [place] [address] 69749- 3316 Nov, Therapeutic drug monitoring Z51.81 [place] [id number] [place] [address] 84349 2548 Nov, [place] [id number] [place] [address] 78534 2549 Nov, Therapeutic drug monitoring Z51.81 ; Fibromyalgia M79.7 and Controlled type 2 diabetes mellitus without complication, without long-term current use of insulin E11.9 [facility] [id number] [place] [address] 23753- 2540 Nov, Type 2 diabetes mellitus with 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 E11.65 [place] [address] 69433- 5945 Nov, [facility] [id number] [place] [address] 58414- 9306 Nov, [facility] [id number] [place] [address] 53947- 8650 Nov, Type 2 diabetes mellitus with 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 E11.65 [facility] [id number] [place] [address] 00165- 6815 Nov, [facility] [id number] [place] [address] 47114- 8217 Nov, [facility] [id number] [place] [address] 19283- 2699 Nov, Constipation K59.00 [facility] [id number] [place] [address] 65201- 9976 Oct, Diabetes type 2, controlled E11.9 [facility] [id number] [place] [address] 83117- 2453 Oct, Type 2 diabetes mellitus with 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 E11.65 ; 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 and Neuropathy G62.9 [facility] [id number] [place] [address] 17647- 9840 Oct, [facility] [id number] [place] [address] 52676- 7778 Oct, [facility] [id number] [place] [address] 16163- 5909 Oct, [facility] [id number] [place] [address] 22685- 0392 Oct, [facility] [id number] [place] [address] 06022- 0960 Oct, [facility] [id number] [place] [address] 30070- 8768 Oct, [facility] [id number] [place] [address] 47070- 5733 Oct, [facility] [address], [place] [address]- 8911 Sep, [facility] [id number] [place] [address] 56791- 5436 Sep, Uncontrolled type 2 diabetes mellitus without complication, without long-term current use of insulin E11.65 [place] [id number] [place] [address] 03335- 2004 Sep, Hypertension, benign I10 ; Fibromyalgia M79.7 ; Controlled type 2 diabetes mellitus without complication, without long-term current use of insulin E11.9 and Uncontrolled type 2 diabetes mellitus without complication, without long-term current use of insulin E11.65 [place] [id number] [place] [address] 11946- 7739 Sep, [facility] [id number] [place] [address] 61149- 5326 Sep, Uncontrolled type 2 diabetes mellitus without complication, without long-term current use of insulin E11.65 [place] [address] [address]- 2057 Sep, [facility] [id number] [place] [address] 94842- 3346 Sep, [facility] [address] [address]- 5771 Sep, Uncontrolled type 2 diabetes mellitus without complication, without long-term current use of insulin E11.65 and Fibromyalgia M79.7 [facility] [address], [place] [address]- 8426 August, [facility] [id number] [address] 2546 August, [facility] [address] [address]- 2546 August, [facility] [address] [address]- 4786 August, Fibromyalgia M79.7 [facility] [id number] [place] [address] 94679- 0190 Jul, Hypertension, benign I10 [facility] [address] 28061- 2945 Jul, Fibromyalgia M79.7 [facility] [id number] [place] [address] 95399- 8497 Jul, [facility] [address] 88766- 4999 Jun, [facility] [address] 85403- 2591 Jun, Hypertension, benign I10 ; Arthritis M19.90 ; care home current use 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 Z79.891 and Uncontrolled type 2 diabetes mellitus without complication, without long-term current use of insulin E11.65 [facility] [id number] [place] [address] 44276 -6421 Jun, Acute nasopharyngitis J00 and BMI 50.0-59.9, adult Z68.43 [facility] [address] 13649- 3074 Jun, Fibromyalgia M79.7 [facility] [id number] [place] [address] 47229- 5500 May, [facility] [id number] [place] [address] 47511- 5280 May, Fibromyalgia M79.7 [facility] [id number] [place] [address] 69417- 5618 Apr, Fibromyalgia M79.7 [facility] [id number] [place] [address] 68245- 0980 Apr, [facility] [id number] [place] [address] 12776- 2425 Apr, [facility] [address] [place] [address]- 8579 Apr, Arthritis M19.90 [facility] [id number] [place] [address] 45056 2546 Apr, Arthritis M19.90 [facility] [id number] [place] [address] 41361 2546 Apr, Arthritis M19.90 and Controlled type 2 diabetes mellitus without complication, without long-term current use of insulin E11.9 [facility] [id number] [place] [address] 17935 2542 Apr, [facility] [id number] [place] [address] 69699- 4465 Apr, Fibromyalgia M79.7 [facility] [id number] [place] [address] 45211 2542 Mar, [facility] [id number] [place] [address] 81433- 1553 Mar, [facility] [id number] [place] [address] 67353 254 Mar, Fibromyalgia M79.7 [facility] [id number] [place] [address] 16473 2545 Feb, [facility] [id number] [place] [address] 58867 2547 Feb, [facility] [id number] [place] [address] 96192 2548 Feb, [facility] [id number] [place] [address] 87692 2544 Feb, Fibromyalgia M79.7 [facility] [id number] [place] [address] 71884- 2541 Feb, Diabetes type 2, uncontrolled E11.65 and Encounter for immunization Z23 [facility] [id number] [place] [address] 80508- 4024 Jan, [facility] [address], [place] [address]- 9176 Jan, Fibromyalgia M79.7 [facility] [id number] [place] [address] 91137- 6478 Dec, [facility] [id number] [place] [address] 59828- 8207 Dec, Fibromyalgia M79.7 [facility] [id number] [place] [address] 19565- 6322 Nov, [facility] [id number] [place] [address] 65190- 5249 Nov, [facility] [id number] [place] [address] 81675- 2661 Nov, 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 and Polyneuropathy G62.9 [facility] [id number] [place] [address] 99942- 6417 Nov, [facility] [id number] [place] [address] 96134- 9387 Nov, [facility] [id number] [place] [address] 74531- 5171 Oct, Diabetes type 2, uncontrolled E11.65 [facility] [id number] [place] [address] 19495- 7888 Oct, Diabetes type 2, uncontrolled E11.65 ; Polyneuropathy G62.9 and Pain in right wrist M25.531 [facility] [address] [place] [address] 47198- 7341 Oct, [facility] [id number] [place] [address] 77036- 1074 Oct, Pain in left shoulder M25.512 [facility] [id number] [place] [address] 79340- 5440 Sep, [facility] [id number] [place] [address] 13785- 8546 Sep, Pain in left shoulder M25.512 [facility] [id number] [address]- 7186 Sep, [facility] [id number] [place] [address] 12600- 8626 August, Pain in left shoulder M25.512 [facility] [id number] [place] [address] 13369- 5629 Jul, [facility] [id number] [place] [address] 49080- 2612 Jul, [facility] [id number] [place] [address] 17642- 4817 Jul, Pain in left shoulder M25.512 [facility] [id number] [place] [address] 49778- 3696 Jun, [facility] [id number] [place] [address] 92097- 6358 Jun, [facility] [id number] [place] [address] 19039- 6002 Jun, Diabetes type 2, uncontrolled E11.65 ; Fibromyalgia M79.7 and Arthritis M19.90 [facility] [address] [place] [address] 72323- 8054 Jun, Pain in left shoulder M25.512 [facility] [address], [place] [address]- 0146 May, [facility] [address], [place] [address]- 8216 May, Diabetes type 2, controlled E11.9 [facility] [id number] [place] [address] 13572- 4646 May, [facility] [address], [place] [address]- 5446 May, Uncontrolled type 2 diabetes mellitus without complication, without long-term current use of insulin E11.65 [facility] [address], [place] [address]- 8917 15 May, 2016 Pain in left shoulder M25.512 [facility] [address], [place] [address]- 8473 03 May, 2016 Diabetes type 2, controlled E11.9 and Uncontrolled type 2 diabetes mellitus without complication, without long-term current use of insulin E11.65 [facility] [id number] [place] [address] 08590- 7507 Apr, [facility] [id number] [place] [address] 02538- 5388 Apr, [facility] [id number] [place] [address] 92184- 9873 Mar, [facility] [id number] [place] [address] 00720- 7654 Mar, [facility] [id number] [place] [address] 16595- 4023 Mar, [facility] [id number] [place] [address] 95006- 9877 Feb, [facility] [id number] [place] [address] [id number] Feb, Dental examination Z01.20 [facility] [address] [place] [address] 78530- 4626 Jan, [facility] [address], [place] [address]- 5959 14 Dec, 2015 [facility] [id number] [place] [address] 59208- 4029 Dec, [facility] [address] [place] [address] 320095- 0940 Dec, [facility] [id number] [place] [address] 23052- 2819 Dec, Diabetes type 2, controlled E11.9 [facility] [address] [id number] [place] [address]- 2320 Nov, [facility] [address] [id number] [place] [address]- 2094 Nov, [facility] [address] [id number] [place] [address]- 8169 Nov, [facility] [address] [id number] [place] [address]- 9506 Nov, [facility] [address] [id number] [place] [address]- 2440 Oct, [facility] [address] [id number] [place] [address]- 6453 Oct, [facility] [address] [id number] [place] [address]- 1395 Oct, [facility] [address] [id number] [place] [address]- 6631 Sep, [facility] [address] [id number] [place] [address]- 4148 Sep, Diabetes type 2, controlled E11.9 [facility] [address] [id number] [place] [address]- 3543 Sep, Diabetes type 2, controlled E11.9 [facility] [address] [facility] [id number] [place] [address]- 8077 August, [facility] [address] [id number] [place] [address]- 1151 August, [facility] [address] [facility] [id number] [place] [address]- 9803 August, Type 2 diabetes mellitus without complication E11.9 and Pain in left shoulder M25.512 [facility] [address] [id number] [place] [address]- 5945 Jul, [facility] [id number] [place] [address] 10437- 9286 Jul, Diabetes type 2, controlled E11.9 and Hypertension, benign I10 [facility] [id number] [place] [address], [place] [address]- 4720 Jun, [facility] [id number] [place] [address] 46919- 1534 Jun, [facility] [id number] [place] [address] 36742- 1706 Jun, Diabetes 250.00 [facility] [id number] [place] [address] 62229- 7847 Jun, [facility] [id number] [place] [address] 00639- 5907 May, Diabetes type 2, uncontrolled E11.65 [facility] [id number] [place] [address] 60619- 7300 May, [facility] [id number] [place] [address] 13207- 4915 Apr, Type 2 diabetes mellitus without complication E11.9 [facility] [id number] [place] [address] 78326- 7908 Apr, Encounter for immunization Z23 [facility] [id number] [place] [address] 64323- 1668 Apr, [facility] [id number] [place] [address] 68310- 7257 Mar, [facility] [id number] [place] [address] 97319- 8350 Mar, [facility] [id number] [place] [address] 15691- 7099 Mar, [facility] [id number] [place] [address] 84690- 0643 Feb, [facility] [id number] [place] [address] 52838- 2546 Jan, [facility] [id number] 1168 Jan, [facility] [address], [place] [address]- 9676 Jan, [facility] [address] 1321 Dec, Diabetes 250.00 and COPD (chronic obstructive pulmonary disease) 496 [facility] [address] [facility] [id number] 8335 Dec, [facility] [id number] [place] [address] 634578- 1630 Dec, [facility] [address] 4132 Nov, [facility] [address], [place] [address]- 2785 Oct, Diabetes 250.00 [facility] [address], [place] [address]- 8034 Sep, [facility] [address], [place] [address]- 7005 Sep, [facility] [address], [place] [address]- 5971 Sep, [facility] [address] 4527 Sep, Diabetes 250.00 [facility] [id number], [place] [address]- 3400 Sep, [facility] [address] 9840 Sep, [facility] [id number], [place] [address]- 2158 August, Hypertension, essential, benign 401.1 ; Coronary atherosclerosis of [place]hoe coronary artery 414.01 and Diabetic neuropathy associated with type 2 diabetes mellitus 250.60 [facility] [address] [facility] [id number] [place] [address]- 1290 29 Jul, 2014 [facility] [address] [facility] [id number], [place] [address]- 9846 14 Jul, 2014 [facility] [address], [place] [address]- 8723 Jul, [facility] [address] [facility] [id number], [place] [address]- 1709 Jun, [facility] [id number] [place] [address]- 2707 Jun, [facility] [id number], [place] [address]- 2285 Jun, [facility] [address], [place] [address]- 3021 Jun, [facility] [address], [place] [address]- 1029 Jun, [facility] [address], [place] [address]- 9901 May, [facility] [id number], [place] [address] May, [facility] [id number], [place] [address] May, [facility] [id number], [place] [address] May, [facility] [id number] [address] May, [facility] [id number] [address] May, [facility] [id number] [address] May, [facility] [place] [facility] [address] [id number] [place] [address] Apr, [facility] [place] [facility] [address] [id number] [place] [address] Apr, [facility] [place] [facility] [address] [id number] [place] [address] Apr, [facility] [place] [facility] [address] [id number] [place] [address] Apr, [facility] [place] [facility] [address] [id number] [place] [address] Mar, [facility] [place] [facility] [address] [id number] [place] [address] Mar, [facility] [place] [facility] [address] [id number] [place] [address] Mar, [facility] [place] [facility] [address] [id number] [place] [address] Mar, [facility] [place] [facility] [address] [id number] [place] [address] Feb, [facility] [place] [facility] [address] [id number] [place] [address] Feb, [facility] [place] [facility] [address] [id number] [place] [address] Feb, [facility] [place] [facility] [address] [id number] [place] [address] Feb, [facility] [place] [facility] [address] [id number] [place] [address] Feb, [facility] [place] [facility] [address] [id number] [place] [address] Feb, [facility] [place] [facility] [address] [id number] [place] [address] Feb, [facility] [place] [facility] [address] [id number] [place] [address] 8565 Jan, [facility] [place] [facility] [address] [id number] [place] [address] 56[address] Jan, [facility] [place] [facility] [address] [id number] [place] [address] 4136 Dec, [facility] [place] [facility] [address] [id number] [place] [address] 9159 Dec, [facility] [place] [facility] [address] [id number] [place] [address]- 3275 Dec, [facility] [place] [facility] [address] [id number] [place] [address]- 9581 Dec, [facility] [place] [facility] [address] [id number] [place] [address] 2634 Dec, [facility] [place] [facility] [address] [id number] [place] [address]- 7864 Dec, [facility] [place] [facility] [address] [id number] [place] [address] 2681 Dec, [facility] [place] [facility] [address] [id number] [place] [address] 9150 Dec, [facility] [place] [facility] [address] [id number] [place] [address]- [address]236 Nov, [facility] [place] [facility] [address] [id number] [place] [address]- 9557 Nov, [facility] [place] [facility] [address] [id number] [place] [address]- 5398 Nov, [facility] [place] [facility] [address] [id number] [place] [address]- 0249 Nov, [facility] [place] [facility] [address] [id number] [place] [address] 8314 Oct, [facility] [place] [facility] [address] [id number] [place] [address]- 3507 Oct, [facility] [place] [facility] [address] [id number] [place] [address]- 7797 Oct, [facility] [address] [id number] [place] [address]- 0339 Oct, [facility] [place] [facility] [address] [id number] [place] [address] 4510 Oct, [facility] [place] [facility] [address] [id number] [place] [address] 6423 Oct, [facility] [place] [facility] [address] [id number] [place] [address]- 9437 Oct, [facility] [place] [facility] [address] [id number] [place] [address] 4381 Oct, [facility] [place] [facility] [address] [id number] [place] [address]- 3807 Sep, [facility] [place] [facility] [address] [id number] [place] [address]- 8578 Sep, [facility] [address] [id number] [place] [address] 4648 August, [facility] [place] [facility] [address] [id number] [place] [address] 4240 August, [facility] [address] [id number] [place] [address]- 9465 Jul, [facility] [place] [facility] [address] [id number] [place] [address]- 7752 Jul, [facility] [place] [facility] [address] [id number] [place] [address]- 6835 Jul, [facility] [place] [facility] [address] [id number] [place] [address]- 1368 Jul, [facility] [place] [facility] [address] [id number] [place] [address]- 5134 Jul, [facility] [place] [facility] [address] [id number] [place] [address]- 2227 Jul, [facility] [address] [id number] [place] [address]- 4925 Jul, [facility] [place] [facility] [address] [id number] [place] [address]- 6135 Jul, [facility] [place] [facility] [address] [id number] [place] [address] Jun, [facility] [place] [facility] [address] [id number] [place] [address]- 8637 Jun, [facility] [place] [facility] [address] [id number] [place] [address]- 2689 Jun, [facility] [place] [facility] [address] [id number] [place] [address]- 7596 Jun, [facility] [place] [facility] [address] [id number] [place] [address]- 7646 May, [facility] [place] [facility] [address] [id number] [place] [address] 1894 May, [facility] [place] [facility] [address] [id number] [place] [address]- 4236 Apr, [facility] [place] [facility] [address] [id number] [place] [address]- 8669 Apr, [facility] [place] [facility] [address] [id number] [place] [address]- 3384 Mar, [facility] [place] [facility] [address] [id number] [place] [address]- 8852 Mar, [facility] [place] [facility] [address] [id number] [place] [address]- 3600 Mar, [facility] [place] [facility] [address] [id number] [place] [address]- 7566 Mar, [facility] [place] [facility] [address] [id number] [place] [address]- 3458 Mar, [facility] [place] [facility] [address] [id number], [place] [address] 18 Mar, 2013 [facility] [place] [facility] [address] [id number] [place] [address]- 5264 Feb, [facility] [place] [facility] [address] [id number], [place] [address]- 6644 Feb, [facility] [place] [facility] [address] [id number] [place] [address]- 7036 Feb, [facility] [place] [facility] [address] [id number] [place] [address]- 0160 Feb, [facility] [place] [facility] [address] [id number] [place] [address]- 5411 Feb, [facility] [place] [facility] [address] [id number] [place] [address]- 8515 Feb, [facility] [place] [facility] [address] [id number], [place] [address]- 8314 Feb, [facility] [place] [facility] [address] [id number], [place] [address]- 5932 Feb, [facility] [place] [facility] [address] [id number] [place] [address]- 7891 15 Jan, 2013 [facility] [place] [facility] [address] [id number], [place] [address]- 6246 15 Jan, 2013 [facility] [place] [facility] [address] [id number], [place] [address]- 6037 14 Jan, 2013 [facility] [place] [facility] [address] [id number], [place] [address]- 7460 14 Jan, 2013 [facility] [place] [facility] [address] [id number], [place] [address]- 5714 18 Dec, 2012 [facility] [place] [facility] [address] [id number], [place] [address]- 5658 13 Dec, 2012 [facility] [place] [facility] [address] [id number], [place] [address]- 9[address] 2012 [facility] [place] [facility] [address] [id number] [place] [address]- 2312 Nov, [facility] [place] [facility] [address] [id number] [place] [address]- 6811 Nov, [facility] [place] [facility] [address] [id number] [place] [address]- 8348 Oct, [facility] [place] [facility] [address] [id number] [place] [address]- 9299 Oct, [facility] [place] [facility] [address] [id number] [place] [address]- 6536 Oct, [facility] [place] [facility] [address] [id number] [place] [address]- 6885 Sep, [facility] [place] [facility] [address] [id number] [place] [address]- 0124 Sep, [facility] [place] [facility] [address] [id number] [place] [address]- 8343 Sep, [facility] [place] [facility] [address] [id number] [place] [address]- 1454 Sep, [facility] [place] [facility] [address] [id number] [place] [address]- 0814 Sep, [facility] [place] [facility] [address] [id number] [place] [address]- 0492 Sep, [facility] [place] [facility] [address] [id number] [place] [address]- 6875 August, [facility] [place] [facility] [address] [id number] [place] [address]- 6615 August, [facility] [place] [facility] [address] [id number] [place] [address]- 7904 August, [facility] [place] [facility] [address] [id number] [place] [address]- 3888 August, [facility] [place] [facility] [address] [id number] [place] [address]- 2084 August, [facility] [address] [id number] [place] [address]- 1787 August, [facility] [address] [id number] [place] [address]- 8598 August, [facility] [address] [id number] [place] [address]- 1091 Jul, [facility] [address] [id number] [place] [address]- 1978 Jul, [facility] [address] [id number] [place] [address]- 6171 Jun, [facility] [address] [id number] [place] [address]- 6861 Jun, [facility] [address] [id number] [place] [address]- 8145 May, [facility] [address] [id number] [place] [address]- 1068 May, [facility] [address] [id number] [place] [address]- 5243 Apr, [facility] [address] [id number] [place] [address]- 8091 Mar, [facility] [address] [id number] [place] [address]- 7669 Mar, [facility] [place] [facility] [address] [id number], [place] [address]- 4073 Mar, [facility] [place] [facility] [address] [id number] [place] [address]- 0031 Mar, [facility] [place] [facility] [address] [facility] [id number] [place] [address]- 3259 Mar, [facility] [place] [facility] [address] [facility] [id number] [place] [address]- 8646 Mar, [facility] [place] [facility] [address] [id number] [place] [address]- 9263 Feb, [facility] [address] [id number] [place] [address]- 4962 Feb, [facility] [place] [facility] [address] [id number] [place] [address]- 3048 Feb, [facility] [place] [facility] [address] [id number] [place] [address]- 9599 Feb, [facility] [place] [facility] [address] [id number] [place] [address]- 3976 Feb, [facility] [place] [facility] [id number] [place] [address], [place] [address]- 0065 Feb, [facility] [place] [facility] [address] [facility] [id number] [place] [address]- 0897 Feb, [facility] [place] [facility] [address] [facility] [id number] [place] [address]- 0749 Feb, [facility] [place] [facility] [address] [id number] [place] [address]- 0397 Jan, [facility] [place] [facility] [address] [facility] [id number] [place] [address]- 4864 Jan, [facility] [place] [facility] [address] [facility] [id number] [place] [address]- 5986 28 Dec, 2011 [facility] [place] [facility] [address] [facility] [id number] [place] [address]- 254 19 Dec, 2011 [facility] [place] [facility] [address] [id number] [place] [address]- 2670 18 Dec, 2011 [facility] [place] [facility] [address] [id number] [place] [address]- 6463 18 Dec, 2011 [facility] [place] [facility] [address] [facility] [id number] [place] [address]- 1939 04 Dec, 2011 [facility] [place] [facility] [address] [facility] [id number] [place] [address]- 0448 Nov, [facility] [place] [facility] [address] [id number] [place] [address]- 7232 Oct, [facility] [place] [facility] [address] [id number] [place] [address]- 6633 Oct, [facility] [place] [facility] [address] [id number] [place] [address]- 8864 Sep, [facility] [place] [facility] [address] [id number] [place] [address]- 5193 Sep, [facility] [place] [facility] [address] [id number] [place] [address]- 5178 Sep, [facility] [place] [facility] [address] [id number] [place] [address]- 1751 Sep, [facility] [place] [facility] [address] [id number] [place] [address]- 0578 Sep, [facility] [place] [facility] [address] [id number] [place] [address]- 2159 Sep, [facility] [place] [facility] [address] [id number] [place] [address]- 1359 Sep, [facility] [place] [facility] [address] [id number] [place] [address]- 3440 Sep, [facility] [place] [facility] [address] [id number] [place] [address]- 1419 August, [facility] [place] [facility] [address] [id number], [place] [address]- 0186 August, [facility] [place] [facility] [address] [id number] [place] [address]- 3899 August, [facility] [place] [facility] [address] [id number] [place] [address]- 1867 Jul, [facility] [place] [facility] [address] [id number], [place] [address]- 1170 Jul, [facility] [place] [facility] [address] [id number], [place] [address]- 2185 Jun, [facility] [address] [id number] [place] [address]- 6070 Jun, [facility] [place] [facility] [address] [id number] [place] [address]- 8496 Jun, [facility] [address] [id number] [place] [address]- 7266 Jun, [facility] [place] [facility] [address] [id number] [place] [address]- 5946 May, [facility] [address] [id number] [place] [address]- 3085 May, [facility] [address] [id number] [place] [address]- 5995 Apr, [facility] [address] [id number] [place] [address]- 8201 Apr, [facility] [address] [id number] [place] [address]- 0835 Apr, [facility] [address] [id number] [place] [address]- 0507 Mar, [facility] [address] [id number] [place] [address]- 6339 Mar, [facility] [address] [id number] [place] [address]- 8256 Mar, [facility] [place] [facility] [address] [id number] [place] [address]- 9005 Feb, [facility] [place] [facility] [address] [id number] [place] [address]- 3279 Feb, [facility] [place] [facility] [address] [id number] [place] [address]- 4149 Feb, [facility] [place] [facility] [address] [facility] [id number] [place] [address]- 9679 Feb, [facility] [place] [facility] [address] [id number] [place] [address]- 8365 25 Jan, 2011 [facility] [place] [facility] [address] [id number] [place] [address]- 7430 14 Jan, 2011 [facility] [place] [facility] [address] [id number] [place] [address]- 2548 12 Jan, 2011 [facility] [place] [facility] [address] [id number] [place] [address]- 3417 16 Dec, 2010 [facility] [place] [facility] [address] [id number] [place] [address]- 2549 13 Oct, 2010 [facility] [place] [facility] [address] [id number] [place] [address]- 5921 24 Mar, 2010 [facility] [place] [facility] [address] [id number] [place] [address]- 1400 26 Feb, 2010 [facility] [place] [facility] [address] [id number] [place] [address]- 0958 15 Feb, 2010 [facility] [place] [facility] [address] [id number] [place] [address]- 6463 16 May, 2009 [facility] [place] [facility] [address] [id number] [place] [address]- 1869 Apr, [facility] [place] [facility] [address] [id number] [place] [address]- 1321 29 Mar, 2009 [facility] [place] [facility] [address] [id number] [place] [address]- 0035 30 Jan, 2009 [facility] [place] [facility] [address] [id number] [place] [address]- 1901 15 Oct, 2008 [facility] [place] [facility] [address] [id number] [place] [address]- 9663 16 Jul, 2008 [facility] [place] [facility] [address] [id number] [place] [address] 2547 04 Mar, 2008 [facility] [place] [facility] [address] [id number] [place] [address]- 2885 Feb, [facility] [address] [facility] [id number] [place] [address]- 7135 Jan, IMMUNIZATIONS No Known Immunizations SOCIAL HISTORY [...]
--- OUTSIDE RECORDS SUMMARY | 2018-07-05 12:18 | XMS REPORT ---
Author Author KATHYA FISCHER [facility] Address [address] [place] [address] Care Team Providers Care Donkey Doctor Name Role Phone KATHYA FISCHER Unavailable PROBLEMS ALLERGIES No Information ENCOUNTERS IMMUNIZATIONS No Known Immunizations SOCIAL HISTORY No smoking Hx information available REASON FOR VISIT PLAN OF CARE VITAL SIGNS MEDICATIONS Unknown Medications RESULTS No Results PROCEDURES No Known procedures INSTRUCTIONS MEDICATIONS ADMINISTERED No Known Medications MEDICAL (GENERAL) HISTORY
--- OUTSIDE RECORDS SUMMARY | 2018-07-05 12:18 | XMS REPORT ---
Author Author KATHYA FISCHER Organization [facility] Address [address] [place] [address] Care Team Providers Care House Steward/Stewardess Name Role Phone KATHYA FISCHER Unavailable PROBLEMS Type Condition ICD9-CM Code XRF77-AS Code Onset Dates Condition Status SNOMED Code Problem Arthritis M19.90 Active 8240138 Problem 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 Active 97363014 Problem Polyneuropathy G62.9 Active 83477478 Problem Other male erectile dysfunction N52.8 Active 047812391 Problem Constipation K59.00 Active 30643067 Problem Type 2 diabetes mellitus with 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 E11.65 Active 855783339 Problem Controlled type 2 diabetes mellitus without complication, without long -term current use of insulin E11.9 Active 894807932 Problem nursing home current use of insulin Z79.4 Active 067310157 Problem Neuropathy G62.9 Active 816309150 Problem Obstructive sleep apnea G47.33 Active 62061239 Problem Hypertension, benign I10 Active 95224141 Problem Uncontrolled type 2 diabetes mellitus without complication, without long-term current use of insulin E11.65 Active 502703032 Problem Stress incontinence of urine N39.3 Active 79912519 Problem Fibromyalgia M79.7 Active [id number] ALLERGIES No Information ENCOUNTERS Encounter Location Date Diagnosis [facility] [id number] [place] [address] 42878- 3683 Feb, [facility] [id number] [place] [address] 23591- 2049 Jan, [facility] [id number] [place] [address] 03096- 5969 Dec, Therapeutic drug monitoring Z51.81 and Controlled type 2 diabetes mellitus without complication, without long-term current use of insulin E11.9 [facility] [id number] [place] [address] 20947- 9699 Dec, Renal insufficiency N28.9 [facility] [id number] [place] [address] 91668- 1635 Dec, [place] [address] [address] 2546 Dec, Dizziness R42 [facility] [address] 41330 2546 Dec, Dizziness R42 and Encounter for immunization Z23 [place] [address] 31181- 8041 Dec, Therapeutic drug monitoring Z51.81 and Controlled type 2 diabetes mellitus without complication, without long-term current use of insulin E11.9 [place] [id number] [place] [address] 51447- 5233 Dec, [place] [address] 15141- 7075 Dec, [place] [address] 39500- 2785 Dec, [place] [address] 42971- 4537 Nov, [place] [id number] [place] [address] 69478- 7984 Nov, Therapeutic drug monitoring Z51.81 [place] [id number] [place] [address] 30572 2547 Nov, [place] [id number] [place] [address] 41177 2541 Nov, Therapeutic drug monitoring Z51.81 ; Fibromyalgia M79.7 and Controlled type 2 diabetes mellitus without complication, without long-term current use of insulin E11.9 [facility] [id number] [place] [address] 88628- 2548 Nov, Type 2 diabetes mellitus with 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 E11.65 [place] [address] 13021- 6372 Nov, [facility] [id number] [place] [address] 16575- 0400 Nov, [facility] [id number] [place] [address] 94372- 3883 Nov, Type 2 diabetes mellitus with 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 E11.65 [facility] [id number] [place] [address] 52008- 4346 Nov, [facility] [id number] [place] [address] 55314- 6567 Nov, [facility] [id number] [place] [address] 90655- 2015 Nov, Constipation K59.00 [facility] [id number] [place] [address] 33784- 1954 Oct, Diabetes type 2, controlled E11.9 [facility] [id number] [place] [address] 96056- 8340 Oct, Type 2 diabetes mellitus with 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 E11.65 ; 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 and Neuropathy G62.9 [facility] [id number] [place] [address] 69799- 4045 Oct, [facility] [id number] [place] [address] 04539- 7243 Oct, [facility] [id number] [place] [address] 10913- 7678 Oct, [facility] [id number] [place] [address] 82830- 9953 Oct, [facility] [id number] [place] [address] 74284- 6853 Oct, [facility] [id number] [place] [address] 96141- 5170 Oct, [facility] [id number] [place] [address] 06574- 4241 Oct, [facility] [address] [address]- 9974 Sep, [facility] [id number] [place] [address] 02679- 0376 Sep, Uncontrolled type 2 diabetes mellitus without complication, without long-term current use of insulin E11.65 [place] [id number] [place] [address] 70232- 9119 Sep, Hypertension, benign I10 ; Fibromyalgia M79.7 ; Controlled type 2 diabetes mellitus without complication, without long-term current use of insulin E11.9 and Uncontrolled type 2 diabetes mellitus without complication, without long-term current use of insulin E11.65 [place] [id number] [place] [address] 97107- 3922 Sep, [facility] [id number] [place] [address] 20178- 1126 Sep, Uncontrolled type 2 diabetes mellitus without complication, without long-term current use of insulin E11.65 [place] [address] [address]- 5712 Sep, [facility] [id number] [place] [address] 11081- 9262 Sep, [facility] [address] [address]- 4123 Sep, Uncontrolled type 2 diabetes mellitus without complication, without long-term current use of insulin E11.65 and Fibromyalgia M79.7 [facility] [address] [address]- 6766 August, [facility] [id number] [address] 2546 August, [facility] [address] [address]- 2546 August, [facility] [address] [address]- 6086 August, Fibromyalgia M79.7 [facility] [address] [place] [address] 52309- 3098 Jul, Hypertension, benign I10 [facility] [address] 32171- 6415 Jul, Fibromyalgia M79.7 [facility] [id number] [place] [address] 57017- 4555 Jul, [facility] [address] 39936- 5606 Jun, [facility] [address] 58162- 3748 Jun, Hypertension, benign I10 ; Arthritis M19.90 ; nursing home current use 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 Z79.891 and Uncontrolled type 2 diabetes mellitus without complication, without long-term current use of insulin E11.65 [facility] [id number] [place] [address] 62273 -8713 Jun, Acute nasopharyngitis J00 and BMI 50.0-59.9, adult Z68.43 [facility] [address] 82193- 5995 Jun, Fibromyalgia M79.7 [facility] [id number] [place] [address] 34640- 1389 May, [facility] [id number] [place] [address] 10567- 9687 May, Fibromyalgia M79.7 [facility] [id number] [place] [address] 24869- 2403 Apr, Fibromyalgia M79.7 [facility] [id number] [place] [address] 13282- 8700 Apr, [facility] [id number] [place] [address] 71712- 3146 Apr, [facility] [address] [place] [address]- 0506 Apr, Arthritis M19.90 [facility] [id number] [place] [address] 24469 2546 Apr, Arthritis M19.90 [facility] [id number] [place] [address] 03930 2546 Apr, Arthritis M19.90 and Controlled type 2 diabetes mellitus without complication, without long-term current use of insulin E11.9 [facility] [id number] [place] [address] 76767 2540 Apr, [facility] [id number] [place] [address] 61851- 6998 Apr, Fibromyalgia M79.7 [facility] [id number] [place] [address] 29998 2549 Mar, [facility] [id number] [place] [address] 68459- 2908 Mar, [facility] [id number] [place] [address] 44838 2549 Mar, Fibromyalgia M79.7 [facility] [id number] [place] [address] 85158 2545 Feb, [facility] [id number] [place] [address] 10349 2549 Feb, [facility] [id number] [place] [address] 06202 254 Feb, [facility] [id number] [place] [address] 28822 2543 Feb, Fibromyalgia M79.7 [facility] [id number] [place] [address] 59262- 2540 Feb, Diabetes type 2, uncontrolled E11.65 and Encounter for immunization Z23 [facility] [id number] [place] [address] 28957- 6394 Jan, [facility] [address] [address]- 7567 Jan, Fibromyalgia M79.7 [facility] [id number] [place] [address] 71551- 7744 Dec, [facility] [id number] [place] [address] 38720- 2092 Dec, Fibromyalgia M79.7 [facility] [id number] [place] [address] 67755- 9317 Nov, [facility] [id number] [place] [address] 55240- 1609 Nov, [facility] [id number] [place] [address] 43211- 1205 Nov, 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 and Polyneuropathy G62.9 [facility] [id number] [place] [address] 04436- 4208 Nov, [facility] [id number] [place] [address] 85816- 6547 Nov, [facility] [id number] [place] [address] 55588- 3375 Oct, Diabetes type 2, uncontrolled E11.65 [facility] [id number] [place] [address] 84096- 7684 Oct, Diabetes type 2, uncontrolled E11.65 ; Polyneuropathy G62.9 and Pain in right wrist M25.531 [facility] [address] [place] [address] 93398- 7767 Oct, [facility] [id number] [place] [address] 89141- 5591 Oct, Pain in left shoulder M25.512 [facility] [id number] [place] [address] 82841- 1492 Sep, [facility] [id number] [place] [address] 28179- 3086 Sep, Pain in left shoulder M25.512 [facility] [id number] [address]- 3466 Sep, [facility] [id number] [place] [address] 13570- 2896 August, Pain in left shoulder M25.512 [facility] [id number] [place] [address] 47680- 8877 Jul, [facility] [id number] [place] [address] 47522- 1129 Jul, [facility] [id number] [place] [address] 68541- 7501 Jul, Pain in left shoulder M25.512 [facility] [id number] [place] [address] 67660- 0156 Jun, [facility] [id number] [place] [address] 84517- 3369 Jun, [facility] [address] [place] [address] 99638- 6357 Jun, Diabetes type 2, uncontrolled E11.65 ; Fibromyalgia M79.7 and Arthritis M19.90 [facility] [address] [place] [address] 76151- 5342 Jun, Pain in left shoulder M25.512 [facility] [address] [address]- 2856 May, [facility] [address] [address]- 4937 May, Diabetes type 2, controlled E11.9 [facility] [id number] [place] [address] 55976- 0166 May, [facility] [address] [address]- 2286 May, Uncontrolled type 2 diabetes mellitus without complication, without long-term current use of insulin E11.65 [facility] [address], [place] [address]- 6808 15 May, 2016 Pain in left shoulder M25.512 [facility] [address], [place] [address]- 3458 03 May, 2016 Diabetes type 2, controlled E11.9 and Uncontrolled type 2 diabetes mellitus without complication, without long-term current use of insulin E11.65 [facility] [id number] [place] [address] 29615- 9195 Apr, [facility] [id number] [place] [address] 65282- 1925 Apr, [facility] [id number] [place] [address] 50091- 2857 Mar, [facility] [id number] [place] [address] 35906- 2492 Mar, [facility] [id number] [place] [address] 02943- 9480 Mar, [facility] [id number] [place] [address] 24924- 3762 Feb, [facility] [id number] [place] [address] [id number] Feb, Dental examination Z01.20 [facility] [address] [place] [address] 63171- 6254 Jan, [facility] [address] [address]- 1399 14 Dec, 2015 [facility] [id number] [place] [address] 04163- 5910 Dec, [facility] [address] [place] [address] 015896- 8861 Dec, [facility] [address] [place] [address] 74292- 2729 Dec, Diabetes type 2, controlled E11.9 [facility] [address] [id number] [place] [address]- 5528 Nov, [facility] [address] [id number] [place] [address]- 0249 Nov, [facility] [address] [id number] [place] [address]- 5266 Nov, [facility] [address] [id number] [place] [address]- 8629 Nov, [facility] [address] [id number] [place] [address]- 8755 Oct, [facility] [address] [id number] [place] [address]- 7043 Oct, [facility] [address] [id number] [place] [address]- 4725 Oct, [facility] [address] [id number] [place] [address]- 5539 Sep, [facility] [address] [id number] [place] [address]- 7024 Sep, Diabetes type 2, controlled E11.9 [facility] [address] [id number] [place] [address]- 6638 Sep, Diabetes type 2, controlled E11.9 [facility] [address] [facility] [id number] [place] [address]- 8423 August, [facility] [address] [id number] [place] [address]- 0112 August, [facility] [address] [facility] [id number] [place] [address]- 7807 August, Type 2 diabetes mellitus without complication E11.9 and Pain in left shoulder M25.512 [facility] [address] [id number] [place] [address]- 9959 Jul, [facility] [id number] [place] [address] 69320- 7745 Jul, Diabetes type 2, controlled E11.9 and Hypertension, benign I10 [facility] [id number] [place] [address], [place] [address]- 7252 Jun, [facility] [id number] [place] [address] 51614- 6436 Jun, [facility] [id number] [place] [address] 48005- 4994 Jun, Diabetes 250.00 [facility] [id number] [place] [address] 25898- 2501 Jun, [facility] [id number] [place] [address] 01357- 7411 May, Diabetes type 2, uncontrolled E11.65 [facility] [id number] [place] [address] 76028- 8149 May, [facility] [id number] [place] [address] 83722- 9383 Apr, Type 2 diabetes mellitus without complication E11.9 [facility] [id number] [place] [address] 28015- 7870 Apr, Encounter for immunization Z23 [facility] [id number] [place] [address] 29449- 9635 Apr, [facility] [id number] [place] [address] 88572- 9545 Mar, [facility] [id number] [place] [address] 98211- 9507 Mar, [facility] [id number] [place] [address] 08922- 9811 Mar, [facility] [id number] [place] [address] 92220- 2417 Feb, [facility] [id number] [place] [address] 43392- 2546 Jan, [facility] [id number] 5909 Jan, [facility] [address], [place] [address]- 4336 Jan, [facility] [address] 9756 Dec, Diabetes 250.00 and COPD (chronic obstructive pulmonary disease) 496 [facility] [address] [facility] [id number] 1831 Dec, [facility] [address] [place] [address] 477061- 8217 Dec, [facility] [address] 0314 Nov, [facility] [address], [place] [address]- 2786 Oct, Diabetes 250.00 [facility] [address], [place] [address]- 9877 Sep, [facility] [address] [address]- 1447 Sep, [facility] [address], [place] [address]- 9393 Sep, [facility] [address] 7111 Sep, Diabetes 250.00 [facility] [id number] [address]- 8196 Sep, [facility] [address] 5369 Sep, [facility] [id number] [address]- 4491 August, Hypertension, essential, benign 401.1 ; Coronary atherosclerosis of [place] coronary artery 414.01 and Diabetic neuropathy associated with type 2 diabetes mellitus 250.60 [facility] [address] [facility] [id number] [place] [address]- 5446 29 Jul, 2014 [facility] [address] [facility] [id number], [place] [address]- 9006 14 Jul, 2014 [facility] [address], [place] [address]- 6785 Jul, [facility] [address] [facility] [id number], [place] [address]- 6346 Jun, [facility] [id number] [address]- 9018 Jun, [facility] [id number] [address]- 4667 Jun, [facility] [address], [place] [address]- 7389 Jun, [facility] [address] [address]- 3855 Jun, [facility] [address], [place] [address]- 5578 May, [facility] [address], [place] [address]- 4815 May, [facility] [address] [address]- 5418 May, [facility] [address] [address]- 5802 May, [facility] [id number] [address] May, [facility] [id number] [address] May, [facility] [address] [id number] [address] May, [facility] [place] [facility] [address] [id number] [place] [address] Apr, [facility] [place] [facility] [address] [id number] [place] [address] Apr, [facility] [place] [facility] [address] [id number] [place] [address] Apr, [facility] [place] [facility] [address] [id number] [place] [address] Apr, [facility] [place] [facility] [address] [id number] [place] [address] Mar, [facility] [place] [facility] [address] [id number] [place] [address] Mar, [facility] [place] [facility] [address] [id number] [place] [address] Mar, [facility] [place] [facility] [address] [id number] [place] [address] Mar, [facility] [place] [facility] [address] [id number] [place] [address] Feb, [facility] [place] [facility] [address] [id number] [place] [address] Feb, [facility] [place] [facility] [address] [id number] [place] [address] Feb, [facility] [place] [facility] [address] [id number] [place] [address] Feb, [facility] [place] [facility] [address] [id number] [place] [address] Feb, [facility] [place] [facility] [address] [id number] [place] [address] Feb, [facility] [place] [facility] [address] [id number] [place] [address] Feb, [facility] [place] [facility] [address] [id number] [place] [address] Jan, [facility] [place] [facility] [address] [id number] [place] [address] Jan, [facility] [place] [facility] [address] [id number] [place] [address] Dec, [facility] [place] [facility] [address] [id number] [place] [address] Dec, [facility] [place] [facility] [address] [id number] [place] [address] Dec, [facility] [place] [facility] [address] [id number] [place] [address] Dec, [facility] [place] [facility] [address] [id number] [place] [address] Dec, [facility] [place] [facility] [address] [id number] [place] [address] Dec, [facility] [place] [facility] [address] [id number] [place] [address] 8020 Dec, [facility] [place] [facility] [address] [id number] [place] [address]146 Dec, [facility] [place] [facility] [address] [id number] [place] [address] 1396 Nov, [facility] [place] [facility] [address] [id number] [place] [address] 8914 Nov, [facility] [place] [facility] [address] [id number] [place] [address]- [address]22 Nov, [facility] [place] [facility] [address] [id number] [place] [address]- [address] Nov, [facility] [place] [facility] [address] [id number] [place] [address]197 Oct, [facility] [place] [facility] [address] [id number] [place] [address]- 0898 Oct, [facility] [place] [facility] [address] [id number] [place] [address] 5479 Oct, [facility] [address] [id number] [place] [address] 8512 Oct, [facility] [place] [facility] [address] [id number] [place] [address] Oct, [facility] [place] [facility] [address] [id number] [place] [address]- 0273 Oct, [facility] [place] [facility] [address] [id number] [place] [address]- [address]70 Oct, [facility] [place] [facility] [address] [id number] [place] [address]- 1391 Oct, [facility] [place] [facility] [address] [id number] [place] [address]- [address]655 Sep, [facility] [place] [facility] [address] [id number] [place] [address]- 0840 Sep, [facility] [address] [id number] [place] [address] 3688 August, [facility] [place] [facility] [address] [id number] [place] [address]- 4[address] August, [facility] [address] [id number] [place] [address] 7509 Jul, [facility] [place] [facility] [address] [id number] [place] [address]- 4084 Jul, [facility] [place] [facility] [address] [id number] [place] [address]- 6666 Jul, [facility] [place] [facility] [address] [id number] [place] [address]- 2057 Jul, [facility] [place] [facility] [address] [id number] [place] [address]- 2697 Jul, [facility] [place] [facility] [address] [id number] [place] [address]- 8352 Jul, [facility] [address] [id number] [place] [address]- 1529 Jul, [facility] [place] [facility] [address] [id number] [place] [address]- 3991 Jul, [facility] [place] [facility] [address] [id number] [place] [address] Jun, [facility] [place] [facility] [address] [id number] [place] [address]- 1663 Jun, [facility] [place] [facility] [address] [id number] [place] [address]- 9190 Jun, [facility] [place] [facility] [address] [id number] [place] [address]- 8796 Jun, [facility] [place] [facility] [address] [id number] [place] [address]- 2581 May, [facility] [place] [facility] [address] [id number] [place] [address]- 8706 May, [facility] [place] [facility] [address] [id number] [place] [address]- 2714 Apr, [facility] [place] [facility] [address] [id number] [place] [address]- 4651 Apr, [facility] [place] [facility] [address] [id number] [place] [address]- 1263 Mar, [facility] [place] [facility] [address] [id number] [place] [address]- 3472 Mar, [facility] [place] [facility] [address] [id number] [place] [address]- 1066 Mar, [facility] [place] [facility] [address] [id number] [place] [address]- 9576 Mar, [facility] [place] [facility] [address] [id number] [place] [address]- 7400 Mar, [facility] [place] [facility] [address] [id number], [place] [address]- [address] 18 Mar, 2013 [facility] [place] [facility] [address] [id number] [place] [address]- 6199 Feb, [facility] [place] [facility] [address] [id number], [place] [address]- 0[address] Feb, [facility] [place] [facility] [address] [id number] [place] [address]- 4903 Feb, [facility] [place] [facility] [address] [id number] [place] [address]- 5256 Feb, [facility] [place] [facility] [address] [id number] [place] [address]- 5232 Feb, [facility] [place] [facility] [address] [id number] [place] [address]- 7563 Feb, [facility] [place] [facility] [address] [id number], [place] [address]- 3285 Feb, [facility] [place] [facility] [address] [id number], [place] [address]- 3158 Feb, [facility] [place] [facility] [address] [id number] [place] [address]- 1121 15 Jan, 2013 [facility] [place] [facility] [address] [id number], [place] [address]- 8958 15 Jan, 2013 [facility] [place] [facility] [address] [id number], [place] [address]- 2324 14 Jan, 2013 [facility] [place] [facility] [address] [id number], [place] [address]- 0705 14 Jan, 2013 [facility] [place] [facility] [address] [id number], [place] [address]- 4763 18 Dec, 2012 [facility] [place] [facility] [address] [id number], [place] [address]- 5290 13 Dec, 2012 [facility] [place] [facility] [address] [id number], [place] [address]- [address] 2012 [facility] [place] [facility] [address] [id number] [place] [address]- 3498 Nov, [facility] [place] [facility] [address] [id number] [place] [address]- 0559 Nov, [facility] [place] [facility] [address] [id number] [place] [address]- 4148 Oct, [facility] [place] [facility] [address] [id number] [place] [address]- 0518 Oct, [facility] [place] [facility] [address] [id number] [place] [address]- 2907 Oct, [facility] [place] [facility] [address] [id number] [place] [address]- 2970 Sep, [facility] [place] [facility] [address] [id number] [place] [address]- 4438 Sep, [facility] [place] [facility] [address] [id number] [place] [address]- 1572 Sep, [facility] [place] [facility] [address] [id number] [place] [address]- 2229 Sep, [facility] [place] [facility] [address] [id number] [place] [address]- 9623 Sep, [facility] [place] [facility] [address] [id number] [place] [address]- 2656 Sep, [facility] [place] [facility] [address] [id number] [place] [address]- 2336 August, [facility] [place] [facility] [address] [id number] [place] [address]- 8266 August, [facility] [place] [facility] [address] [id number] [place] [address]- 8706 August, [facility] [place] [facility] [address] [id number] [place] [address]- 0665 August, [facility] [place] [facility] [address] [id number] [place] [address]- 4120 August, [facility] [address] [id number] [place] [address]- 4449 August, [facility] [address] [id number] [place] [address]- 9618 August, [facility] [address] [id number] [place] [address]- 8892 Jul, [facility] [address] [id number] [place] [address]- 0462 Jul, [facility] [address] [id number] [place] [address]- 9607 Jun, [facility] [address] [id number] [place] [address]- 5270 Jun, [facility] [address] [id number] [place] [address]- 0290 May, [facility] [address] [id number] [place] [address]- 1678 May, [facility] [address] [id number] [place] [address]- 3584 Apr, [facility] [address] [id number] [place] [address]- 8307 Mar, [facility] [address] [id number] [place] [address]- 9260 Mar, [facility] [place] [facility] [address] [id number], [place] [address]- 0525 Mar, [facility] [place] [facility] [address] [id number] [place] [address]- 4443 Mar, [facility] [place] [facility] [address] [facility] [id number] [place] [address]- 2036 Mar, [facility] [place] [facility] [address] [facility] [id number] [place] [address]- 1226 Mar, [facility] [place] [facility] [address] [id number] [place] [address]- 9782 Feb, [facility] [address] [id number] [place] [address]- 3797 Feb, [facility] [place] [facility] [address] [id number] [place] [address]- 9959 Feb, [facility] [place] [facility] [address] [id number] [place] [address]- 4947 Feb, [facility] [place] [facility] [address] [id number] [place] [address]- 6563 Feb, [facility] [place] [facility] [address] [id number] [place] [address], [place] [address]- 5299 Feb, [facility] [place] [facility] [address] [facility] [id number] [place] [address]- 3939 Feb, [facility] [place] [facility] [address] [facility] [id number] [place] [address]- 2912 Feb, [facility] [place] [facility] [address] [id number] [place] [address]- 5077 Jan, [facility] [place] [facility] [address] [facility] [id number] [place] [address]- 3934 Jan, [facility] [place] [facility] [address] [facility] [id number] [place] [address]- 4474 28 Dec, 2011 [facility] [place] [facility] [address] [facility] [id number] [place] [address]- 2541 19 Dec, 2011 [facility] [place] [facility] [address] [id number] [place] [address]- 7174 18 Dec, 2011 [facility] [place] [facility] [address] [id number] [place] [address]- 1194 18 Dec, 2011 [facility] [place] [facility] [address] [facility] [id number] [place] [address]- 1252 04 Dec, 2011 [facility] [place] [facility] [address] [facility] [id number] [place] [address]- 4325 Nov, [facility] [place] [facility] [address] [id number] [place] [address]- 3124 Oct, [facility] [place] [facility] [address] [id number] [place] [address]- 3071 Oct, [facility] [place] [facility] [address] [id number] [place] [address]- 1806 Sep, [facility] [place] [facility] [address] [id number] [place] [address]- 8669 Sep, [facility] [place] [facility] [address] [id number] [place] [address]- 3053 Sep, [facility] [place] [facility] [address] [id number] [place] [address]- 7262 Sep, [facility] [place] [facility] [address] [id number] [place] [address]- 6186 Sep, [facility] [place] [facility] [address] [id number] [place] [address]- 9948 Sep, [facility] [place] [facility] [address] [id number] [place] [address]- 8779 Sep, [facility] [place] [facility] [address] [id number] [place] [address]- 4680 Sep, [facility] [place] [facility] [address] [id number] [place] [address]- 7651 August, [facility] [place] [facility] [address] [id number], [place] [address]- 4222 August, [facility] [place] [facility] [address] [id number] [place] [address]- 4066 August, [facility] [place] [facility] [address] [id number] [place] [address]- 1238 Jul, [facility] [place] [facility] [address] [id number], [place] [address]- 0310 Jul, [facility] [place] [facility] [address] [id number], [place] [address]- 4988 Jun, [facility] [address] [id number] [place] [address]- 0667 Jun, [facility] [place] [facility] [address] [id number] [place] [address]- 6296 Jun, [facility] [address] [id number] [place] [address]- 8936 Jun, [facility] [place] [facility] [address] [id number] [place] [address]- 3316 May, [facility] [address] [id number] [place] [address]- 5782 May, [facility] [address] [id number] [place] [address]- 0314 Apr, [facility] [address] [id number] [place] [address]- 9971 Apr, [facility] [address] [id number] [place] [address]- 2456 Apr, [facility] [address] [id number] [place] [address]- 6819 Mar, [facility] [address] [id number] [place] [address]- 0265 Mar, [facility] [address] [id number] [place] [address]- 1163 Mar, [facility] [place] [facility] [address] [id number] [place] [address]- 2156 Feb, [facility] [place] [facility] [address] [id number] [place] [address]- 4704 Feb, [facility] [place] [facility] [address] [id number] [place] [address]- 3678 Feb, [facility] [place] [facility] [address] [facility] [id number] [place] [address]- 6943 Feb, [facility] [place] [facility] [address] [id number] [place] [address]- 8122 25 Jan, 2011 [facility] [place] [facility] [address] [id number] [place] [address]- 8390 14 Jan, 2011 [facility] [place] [facility] [address] [id number] [place] [address]- 254 12 Jan, 2011 [facility] [place] [facility] [address] [id number] [place] [address]- 8391 16 Dec, 2010 [facility] [place] [facility] [address] [id number] [place] [address]- 2541 13 Oct, 2010 [facility] [place] [facility] [address] [id number] [place] [address]- 5090 24 Mar, 2010 [facility] [place] [facility] [address] [id number] [place] [address]- 0859 26 Feb, 2010 [facility] [place] [facility] [address] [id number] [place] [address]- 3886 15 Feb, 2010 [facility] [place] [facility] [address] [id number] [place] [address]- 5270 16 May, 2009 [facility] [place] [facility] [address] [id number] [place] [address]- 9617 Apr, [facility] [place] [facility] [address] [id number] [place] [address]- 8542 29 Mar, 2009 [facility] [place] [facility] [address] [id number] [place] [address]- 1817 30 Jan, 2009 [facility] [place] [facility] [address] [id number] [place] [address]- 6649 15 Oct, 2008 [facility] [place] [facility] [address] [id number] [place] [address]- 7863 16 Jul, 2008 [facility] [place] [facility] [address] [id number] [place] [address] 2549 04 Mar, 2008 [facility] [place] [facility] [address] [id number] [place] [address]- 7091 Feb, [facility] [address] [facility] [id number] [place] [address]- 7147 Jan, IMMUNIZATIONS No Known Immunizations SOCIAL HISTORY Never Assessed REASON FOR VISIT Prior Authorization Request PLAN OF CARE VITAL SIGNS MEDICATIONS Medication Instructions Dosage Frequency Start Date End Date Duration Status Finasteride 5 MG Orally Once a day 1 tablet 24h Dec, 30 day(s) Active RESULTS No Results PROCEDURES No Known [...]
--- OUTSIDE RECORDS SUMMARY | 2018-07-05 12:19 | XMS REPORT ---
Author Author KATHYA FISCHER Organization [facility] Address [address] [place] [address] Care Team Providers Care Program Counselor Name Role Phone KATHYA FISCHER Unavailable PROBLEMS Type Condition ICD9-CM Code JIV78-NO Code Onset Dates Condition Status SNOMED Code Problem Arthritis M19.90 Active 3426052 Problem 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 Active 37748861 Problem Polyneuropathy G62.9 Active 37548697 Problem Other male erectile dysfunction N52.8 Active 579240269 Problem Constipation K59.00 Active 41194394 Problem Type 2 diabetes mellitus with 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 E11.65 Active 229065809 Problem Controlled type 2 diabetes mellitus without complication, without long -term current use of insulin E11.9 Active 103610266 Problem detention current use of insulin Z79.4 Active 191087714 Problem Neuropathy G62.9 Active 654709169 Problem Obstructive sleep apnea G47.33 Active 34844807 Problem Hypertension, benign I10 Active 86485241 Problem Uncontrolled type 2 diabetes mellitus without complication, without long-term current use of insulin E11.65 Active 980323110 Problem Stress incontinence of urine N39.3 Active 69205641 Problem Fibromyalgia M79.7 Active [id number] ALLERGIES No Information ENCOUNTERS Encounter Location Date Diagnosis [facility] [id number] [place] [address] 27808- 3913 Feb, [facility] [id number] [place] [address] 18312- 5383 Jan, [facility] [id number] [place] [address] 04196- 2288 Dec, Therapeutic drug monitoring Z51.81 and Controlled type 2 diabetes mellitus without complication, without long-term current use of insulin E11.9 [facility] [id number] [place] [address] 00630- 8479 Dec, Renal insufficiency N28.9 [facility] [id number] [place] [address] 53474- 4895 Dec, [place] [address] [address] 2546 Dec, Dizziness R42 [facility] [address] 58557 2546 Dec, Dizziness R42 and Encounter for immunization Z23 [place] [address] 29246- 2051 Dec, Therapeutic drug monitoring Z51.81 and Controlled type 2 diabetes mellitus without complication, without long-term current use of insulin E11.9 [place] [id number] [place] [address] 70220- 4237 Dec, [place] [address] 15135- 0859 Dec, [place] [address] 49226- 9913 Dec, [place] [address] 64024- 2307 Nov, [place] [id number] [place] [address] 59428- 8214 Nov, Therapeutic drug monitoring Z51.81 [place] [id number] [place] [address] 10016 2542 Nov, [place] [id number] [place] [address] 25391 2547 Nov, Therapeutic drug monitoring Z51.81 ; Fibromyalgia M79.7 and Controlled type 2 diabetes mellitus without complication, without long-term current use of insulin E11.9 [facility] [id number] [place] [address] 35371- 2540 Nov, Type 2 diabetes mellitus with 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 E11.65 [place] [address] 22330- 5437 Nov, [facility] [id number] [place] [address] 72189- 3316 Nov, [facility] [id number] [place] [address] 92240- 4370 Nov, Type 2 diabetes mellitus with 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 E11.65 [facility] [id number] [place] [address] 99572- 1785 Nov, [facility] [id number] [place] [address] 00482- 5995 Nov, [facility] [id number] [place] [address] 04517- 1659 Nov, Constipation K59.00 [facility] [id number] [place] [address] 07906- 4043 Oct, Diabetes type 2, controlled E11.9 [facility] [id number] [place] [address] 89168- 7870 Oct, Type 2 diabetes mellitus with 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 E11.65 ; 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 and Neuropathy G62.9 [facility] [id number] [place] [address] 01642- 0941 Oct, [facility] [id number] [place] [address] 19879- 6262 Oct, [facility] [id number] [place] [address] 45499- 3461 Oct, [facility] [id number] [place] [address] 62655- 2583 Oct, [facility] [id number] [place] [address] 71894- 0999 Oct, [facility] [id number] [place] [address] 02424- 4078 Oct, [facility] [id number] [place] [address] 92513- 0439 Oct, [facility] [address] [address]- 4205 Sep, [facility] [id number] [place] [address] 86897- 7736 Sep, Uncontrolled type 2 diabetes mellitus without complication, without long-term current use of insulin E11.65 [place] [id number] [place] [address] 07667- 0639 Sep, Hypertension, benign I10 ; Fibromyalgia M79.7 ; Controlled type 2 diabetes mellitus without complication, without long-term current use of insulin E11.9 and Uncontrolled type 2 diabetes mellitus without complication, without long-term current use of insulin E11.65 [place] [id number] [place] [address] 17389- 5980 Sep, [facility] [id number] [place] [address] 28032- 1876 Sep, Uncontrolled type 2 diabetes mellitus without complication, without long-term current use of insulin E11.65 [place] [address] [address]- 2385 Sep, [facility] [id number] [place] [address] 48997- 8813 Sep, [facility] [address] [address]- 5443 Sep, Uncontrolled type 2 diabetes mellitus without complication, without long-term current use of insulin E11.65 and Fibromyalgia M79.7 [facility] [address] [address]- 0686 August, [facility] [id number] [address] 2546 August, [facility] [address] [address]- 2546 August, [facility] [address] [address]- 6396 August, Fibromyalgia M79.7 [facility] [id number] [place] [address] 21892- 1195 Jul, Hypertension, benign I10 [facility] [address] 34106- 3607 Jul, Fibromyalgia M79.7 [facility] [id number] [place] [address] 06412- 0403 Jul, [facility] [address] 38789- 8149 Jun, [facility] [address] 52094- 1331 Jun, Hypertension, benign I10 ; Arthritis M19.90 ; detention current use 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 Z79.891 and Uncontrolled type 2 diabetes mellitus without complication, without long-term current use of insulin E11.65 [facility] [id number] [place] [address] 36375 -0402 Jun, Acute nasopharyngitis J00 and BMI 50.0-59.9, adult Z68.43 [facility] [address] 36507- 6390 Jun, Fibromyalgia M79.7 [facility] [id number] [place] [address] 78839- 7426 May, [facility] [id number] [place] [address] 98702- 6430 May, Fibromyalgia M79.7 [facility] [id number] [place] [address] 10676- 6290 Apr, Fibromyalgia M79.7 [facility] [id number] [place] [address] 91967- 2075 Apr, [facility] [id number] [place] [address] 56025- 4567 Apr, [facility] [address] [place] [address]- 1159 Apr, Arthritis M19.90 [facility] [id number] [place] [address] 45621 2546 Apr, Arthritis M19.90 [facility] [id number] [place] [address] 01291 2546 Apr, Arthritis M19.90 and Controlled type 2 diabetes mellitus without complication, without long-term current use of insulin E11.9 [facility] [id number] [place] [address] 00578 2544 Apr, [facility] [id number] [place] [address] 56571- 7622 Apr, Fibromyalgia M79.7 [facility] [id number] [place] [address] 17483 2548 Mar, [facility] [id number] [place] [address] 68846- 1546 Mar, [facility] [id number] [place] [address] 74973 2549 Mar, Fibromyalgia M79.7 [facility] [id number] [place] [address] 60462 2542 Feb, [facility] [id number] [place] [address] 55892 254 Feb, [facility] [id number] [place] [address] 17752 2541 Feb, [facility] [id number] [place] [address] 07284 2541 Feb, Fibromyalgia M79.7 [facility] [id number] [place] [address] 83900- 2542 Feb, Diabetes type 2, uncontrolled E11.65 and Encounter for immunization Z23 [facility] [id number] [place] [address] 04661- 8405 Jan, [facility] [address] [address]- 6469 Jan, Fibromyalgia M79.7 [facility] [id number] [place] [address] 56938- 6421 Dec, [facility] [id number] [place] [address] 07312- 8419 Dec, Fibromyalgia M79.7 [facility] [id number] [place] [address] 18255- 8787 Nov, [facility] [id number] [place] [address] 72619- 3080 Nov, [facility] [id number] [place] [address] 99646- 0348 Nov, 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 and Polyneuropathy G62.9 [facility] [id number] [place] [address] 11872- 4421 Nov, [facility] [id number] [place] [address] 42781- 6639 Nov, [facility] [id number] [place] [address] 24139- 5219 Oct, Diabetes type 2, uncontrolled E11.65 [facility] [id number] [place] [address] 54614- 7867 Oct, Diabetes type 2, uncontrolled E11.65 ; Polyneuropathy G62.9 and Pain in right wrist M25.531 [facility] [id number] [place] [address] 42102- 5844 Oct, [facility] [id number] [place] [address] 47564- 1044 Oct, Pain in left shoulder M25.512 [facility] [id number] [place] [address] 18560- 4906 Sep, [facility] [id number] [place] [address] 39199- 2786 Sep, Pain in left shoulder M25.512 [facility] [id number] [address]- 6546 Sep, [facility] [id number] [place] [address] 19475- 0236 August, Pain in left shoulder M25.512 [facility] [id number] [place] [address] 62169- 9550 Jul, [facility] [id number] [place] [address] 03955- 2392 Jul, [facility] [id number] [place] [address] 15937- 0238 Jul, Pain in left shoulder M25.512 [facility] [id number] [place] [address] 85618- 6606 Jun, [facility] [id number] [place] [address] 77900- 0760 Jun, [facility] [address] [place] [address] 95875- 7120 Jun, Diabetes type 2, uncontrolled E11.65 ; Fibromyalgia M79.7 and Arthritis M19.90 [facility] [address] [place] [address] 41479- 8645 Jun, Pain in left shoulder M25.512 [facility] [address] [address]- 3106 May, [facility] [address] [address]- 5173 May, Diabetes type 2, controlled E11.9 [facility] [id number] [place] [address] 13919- 0056 May, [facility] [address] [address]- 3216 May, Uncontrolled type 2 diabetes mellitus without complication, without long-term current use of insulin E11.65 [facility] [address] [address]- 2618 15 May, 2016 Pain in left shoulder M25.512 [facility] [address] [address]- 0296 03 May, 2016 Diabetes type 2, controlled E11.9 and Uncontrolled type 2 diabetes mellitus without complication, without long-term current use of insulin E11.65 [facility] [id number] [place] [address] 59795- 9791 Apr, [facility] [id number] [place] [address] 42352- 9355 Apr, [facility] [id number] [place] [address] 17395- 9720 Mar, [facility] [id number] [place] [address] 82486- 6901 Mar, [facility] [id number] [place] [address] 14955- 0400 Mar, [facility] [id number] [place] [address] 29369- 4772 Feb, [facility] [id number] [place] [address] [id number] Feb, Dental examination Z01.20 [facility] [address] [place] [address] 33004- 2146 Jan, [facility] [address] [address]- 6665 14 Dec, 2015 [facility] [id number] [place] [address] 22172- 9912 Dec, [facility] [address] [place] [address] 701855- 4395 Dec, [facility] [address] [place] [address] 63981- 4505 Dec, Diabetes type 2, controlled E11.9 [facility] [address] [id number] [place] [address]- 5800 Nov, [facility] [address] [id number] [place] [address]- 2684 Nov, [facility] [address] [id number] [place] [address]- 3976 Nov, [facility] [address] [id number] [place] [address]- 0817 Nov, [facility] [address] [id number] [place] [address]- 0878 Oct, [facility] [address] [id number] [place] [address]- 2195 Oct, [facility] [address] [id number] [place] [address]- 3194 Oct, [facility] [address] [id number] [place] [address]- 4100 Sep, [facility] [address] [id number] [place] [address]- 9695 Sep, Diabetes type 2, controlled E11.9 [facility] [address] [id number] [place] [address]- 4216 Sep, Diabetes type 2, controlled E11.9 [facility] [address] [facility] [id number] [place] [address]- 0658 August, [facility] [address] [id number] [place] [address]- 1966 August, [facility] [address] [facility] [id number] [place] [address]- 6243 August, Type 2 diabetes mellitus without complication E11.9 and Pain in left shoulder M25.512 [facility] [address] [id number] [place] [address]- 3039 Jul, [facility] [place] [id number] [place] [address]13- [address]24 Jul, Diabetes type 2, controlled E11.9 and Hypertension, benign I10 [facility] [place] [id number] [place] [address], [place] [address] Jun, [facility] [place] [id number] [place] [address]28- 8371 Jun, [facility] [place] [id number] [place] [address] 11446- 4786 Jun, Diabetes 250.00 [facility] [place] [id number] [place] [address] 68004- 8196 Jun, [facility] [place] [id number] [place] [address] 59274- 6018 May, Diabetes type 2, uncontrolled E11.65 [facility] [place] [id number] [place] [address] 94867- 3670 May, [facility] [place] [id number] [place] [address] 85161- 6503 Apr, Type 2 diabetes mellitus without complication E11.9 [facility] [place] [id number] [place] [address] 59433- 7779 Apr, Encounter for immunization Z23 [facility] [place] [id number] [place] [address] 56971- 6867 Apr, [facility] [place] [id number] [place] [address] 26680- 4309 Mar, [facility] [place] [id number] [place] [address] 10037- 5704 Mar, [facility] [place] [id number] [place] [address] 29718- 1870 Mar, [facility] [place] [id number] [place] [address] 57495- 9136 Feb, [facility] [place] [id number] [place] [address] 84627- 2546 Jan, [facility] [place] [id number] [address] Jan, [facility] [place] [address] [address] Jan, [facility] [place] [address] [address] Dec, Diabetes 250.00 and COPD (chronic obstructive pulmonary disease) 496 [facility] [place] [address] [facility] [id number] [address] Dec, [facility] [place] [id number] [place] [address] [id number]- 3757 Dec, [facility] [place] [address] [address] Nov, [facility] [place] [address] [address] Oct, Diabetes 250.00 [facility] [place] [address] [address] Sep, [facility] [place] [facility] [id number] [address] Sep, [facility] [id number] [address] Sep, [facility] [id number] [address] Sep, Diabetes 250.00 [facility] [address] [id number] [address] Sep, [facility] [id number] [address] Sep, [facility] [address] [id number] [address] August, Hypertension, essential, benign 401.1 ; Coronary atherosclerosis of [place] coronary artery 414.01 and Diabetic neuropathy associated with type 2 diabetes mellitus 250.60 [facility] [address] [facility] [id number] [place] [address] 29 Jul, 2014 [facility] [address] [facility] [id number] [address] 14 Jul, 2014 [facility] [id number] [address] Jul, [facility] [address] [facility] [id number] [address] Jun, [facility] [address] [id number] [place] [address] 8[address] Jun, [facility] [address] [id number] [address] 7910 Jun, [facility] [address]005[address] [address] 3653 Jun, [facility] [address]005[address] [address] Jun, [facility] [address]005[address] [address] 6[address] May, [facility] [address]005[address] [address] 8883 May, [facility] [address]005[address] [address]- 7648 May, [facility] [address]005[address] [address]- 6472 May, [facility] [address] [id number] [address] May, [facility] [address] [address] May, [facility] [address] [id number] [address] May, [facility] [place] [facility] [address] [id number] [place] [address]- 1844 Apr, [facility] [place] [facility] [address] [id number] [place] [address]- 3557 Apr, [facility] [place] [facility] [address] [id number] [place] [address]- 5248 Apr, [facility] [place] [facility] [address] [id number] [place] [address]- 5876 Apr, [facility] [place] [facility] [address] [id number] [place] [address]- 3135 Mar, [facility] [place] [facility] [address] [id number] [place] [address]- 5533 Mar, [facility] [place] [facility] [address] [id number] [place] [address]- 4381 Mar, [facility] [place] [facility] [address] [id number] [place] [address]- 3876 Mar, [facility] [place] [facility] [address] [id number] [place] [address]- 0194 Feb, [facility] [place] [facility] [address] [id number] [place] [address]- 1987 Feb, [facility] [place] [facility] [address] [id number] [place] [address]- 1031 Feb, [facility] [place] [facility] [address] [id number] [place] [address]- 7967 Feb, [facility] [place] [facility] [address] [id number] [place] [address]- 0159 Feb, [facility] [place] [facility] [address] [id number] [place] [address]- 3402 Feb, [facility] [place] [facility] [address] [id number] [place] [address]- 6778 Feb, [facility] [place] [facility] [address] [id number] [place] [address]- 8672 Jan, [facility] [place] [facility] [address] [id number] [place] [address]- 2666 Jan, [facility] [place] [facility] [address] [id number] [place] [address]- 9954 Dec, [facility] [place] [facility] [address] [id number] [place] [address]- 5789 Dec, [facility] [place] [facility] [address] [id number] [place] [address]- 3148 Dec, [facility] [place] [facility] [address] [id number] [place] [address]- 7412 Dec, [facility] [place] [facility] [address] [id number] [place] [address]- 1990 Dec, [facility] [place] [facility] [address] [id number] [place] [address]- 2036 Dec, [facility] [place] [facility] [address] [id number] [place] [address]- 2088 Dec, [facility] [place] [facility] [address] [id number] [place] [address]- 1023 Dec, [facility] [place] [facility] [address] [id number] [place] [address]- 4093 Nov, [facility] [place] [facility] [address] [id number] [place] [address]- 1122 Nov, [facility] [place] [facility] [address] [id number] [place] [address]- 5342 Nov, [facility] [place] [facility] [address] [id number] [place] [address]- 1595 Nov, [facility] [place] [facility] [address] [id number] [place] [address]- 2793 Oct, [facility] [place] [facility] [address] [id number] [place] [address]- 1702 Oct, [facility] [place] [facility] [address] [id number] [place] [address]- 3647 Oct, [facility] [address] [id number] [place] [address]- 3121 Oct, [facility] [place] [facility] [address] [id number] [place] [address]- 6157 Oct, [facility] [place] [facility] [address] [id number] [place] [address]- 1035 Oct, [facility] [place] [facility] [address] [id number] [place] [address]- 3030 Oct, [facility] [place] [facility] [address] [id number] [place] [address]- 1327 Oct, [facility] [place] [facility] [address] [id number] [place] [address]- 8191 Sep, [facility] [place] [facility] [address] [id number] [place] [address]- 6253 Sep, [facility] [address] [id number] [place] [address]- 1849 August, [facility] [place] [facility] [address] [id number] [place] [address]- 9865 August, [facility] [address] [id number] [place] [address]- 6656 Jul, [facility] [place] [facility] [address] [id number] [place] [address]- 6170 Jul, [facility] [place] [facility] [address] [id number] [place] [address]- 6014 Jul, [facility] [place] [facility] [address] [id number] [place] [address]- 5442 Jul, [facility] [place] [facility] [address] [id number] [place] [address]- 3882 Jul, [facility] [place] [facility] [address] [id number] [place] [address]- 0356 Jul, [facility] [address] [id number] [place] [address]- 3298 Jul, [facility] [place] [facility] [address] [id number] [place] [address]- 9631 Jul, [facility] [place] [facility] [address] [id number] [place] 8241 Jun, [facility] [place] [facility] [address] [id number] [place] [address]- 7695 Jun, [facility] [place] [facility] [address] [id number] [place] [address]- 2653 Jun, [facility] [place] [facility] [address] [id number] [place] [address]- 3966 Jun, [facility] [place] [facility] [address] [id number] [place] [address]- 7487 May, [facility] [place] [facility] [address] [id number] [place] [address]- 5081 May, [facility] [place] [facility] [address] [id number] [place] [address]- 6703 Apr, [facility] [place] [facility] [address] [id number] [place] [address]- 5142 Apr, [facility] [place] [facility] [address] [id number] [place] [address]- 0880 Mar, [facility] [place] [facility] [address] [id number] [place] [address]- 4515 Mar, [facility] [place] [facility] [address] [id number] [place] [address]- 6026 Mar, [facility] [place] [facility] [address] [id number] [place] [address]- 3326 Mar, [facility] [place] [facility] [address] [id number] [place] [address]- 1513 Mar, [facility] [place] [facility] [address] [id number] [address]- 9121 18 Mar, 2013 [facility] [place] [facility] [address] [id number] [place] [address]- 4171 Feb, [facility] [place] [facility] [address] [id number] [address]- 1809 Feb, [facility] [place] [facility] [address] [id number] [place] [address]- 3727 Feb, [facility] [place] [facility] [address] [id number] [place] [address]- 4531 Feb, [facility] [place] [facility] [address] [id number] [place] [address]- 8858 Feb, [facility] [place] [facility] [address] [id number] [place] [address]- 0376 Feb, [facility] [place] [facility] [address] [id number] [place] [address]- 7161 Feb, [facility] [place] [facility] [address] [id number] [address]- 9806 Feb, [facility] [place] [facility] [address] [id number] [place] [address]- 6959 15 Jan, 2013 [facility] [place] [facility] [address] [id number] [address]- 0686 15 Jan, 2013 [facility] [place] [facility] [address] [id number] [place] [address]- 5135 14 Jan, 2013 [facility] [place] [facility] [address] [id number] [place] [address]- 0173 14 Jan, 2013 [facility] [place] [facility] [address] [id number] [place] [address]- 2200 18 Dec, 2012 [facility] [place] [facility] [address] [id number] [place] [address]- 2611 13 Dec, 2012 [facility] [place] [facility] [address] [id number] [address]- 7425 2012 [facility] [place] [facility] [address] [id number] [place] [address]- 0820 Nov, [facility] [place] [facility] [address] [id number] [place] [address]- 7625 Nov, [facility] [place] [facility] [address] [id number] [place] [address]- 1837 Oct, [facility] [place] [facility] [address] [id number] [place] [address]- 3349 Oct, [facility] [place] [facility] [address] [id number] [place] [address]- 6198 Oct, [facility] [place] [facility] [address] [id number] [place] [address]- 9146 Sep, [facility] [place] [facility] [address] [id number] [place] [address]- 5004 Sep, [facility] [place] [facility] [address] [id number] [place] [address]- 3063 Sep, [facility] [place] [facility] [address] [id number] [place] [address]- 7036 Sep, [facility] [place] [facility] [address] [id number] [place] [address]- 3108 Sep, [facility] [place] [facility] [address] [id number] [place] [address]- 4178 Sep, [facility] [place] [facility] [address] [id number] [place] [address]- 5976 August, [facility] [place] [facility] [address] [id number] [place] [address]- 8055 August, [facility] [place] [facility] [address] [id number] [place] [address]- 0528 August, [facility] [place] [facility] [address] [id number] [place] [address]- 9990 August, [facility] [place] [facility] [address] [id number] [place] [address]- 6461 August, [facility] [address] [id number] [place] [address]- 8097 August, [facility] [address] [id number] [place] [address]- 3508 August, [facility] [address] [id number] [place] [address]- 7911 Jul, [facility] [address] [id number] [place] [address]- 3446 Jul, [facility] [address] [id number] [place] [address]- 4740 Jun, [facility] [address] [id number] [place] [address]- 0908 Jun, [facility] [address] [id number] [place] [address]- 3367 May, [facility] [address] [id number] [place] [address]- 6867 May, [facility] [address] [id number] [place] [address]- 9326 Apr, [facility] [address] [id number] [place] [address]- 5247 Mar, [facility] [address] [id number] [place] [address]- 7069 Mar, [facility] [place] [facility] [address] [id number] [place] [address]- 9158 Mar, [facility] [place] [facility] [address] [id number] [place] [address]- 3368 Mar, [facility] [place] [facility] [address] [facility] [id number] [place] [address]- 2410 Mar, [facility] [place] [facility] [address] [facility] [id number] [place] [address]- 4536 Mar, [facility] [place] [facility] [address] [id number] [place] [address]- 0804 Feb, [facility] [address] [id number] [place] [address]- 6646 Feb, [facility] [place] [facility] [address] [id number] [place] [address]- 0298 Feb, [facility] [place] [facility] [address] [id number] [place] [address]- 2586 Feb, [facility] [place] [facility] [address] [id number] [place] [address]- 0477 Feb, [facility] [place] [facility] [address] [id number] [place] [address], [place] [address]- 7948 Feb, [facility] [place] [facility] [address] [facility] [id number] [place] [address]- 3836 Feb, [facility] [place] [facility] [address] [facility] [id number] [place] [address]- 3016 Feb, [facility] [place] [facility] [address] [id number] [place] [address]- 8923 Jan, [facility] [place] [facility] [address] [facility] [id number] [place] [address]- 4812 Jan, [facility] [place] [facility] [address] [facility] [id number] [place] [address]- 0373 28 Dec, 2011 [facility] [place] [facility] [address] [facility] [id number] [place] [address]- 2548 19 Dec, 2011 [facility] [place] [facility] [address] [id number] [place] [address]- 3433 18 Dec, 2011 [facility] [place] [facility] [address] [id number] [place] [address]- 2888 18 Dec, 2011 [facility] [place] [facility] [address] [facility] [id number] [place] [address]- 2267 04 Dec, 2011 [facility] [place] [facility] [address] [facility] [id number] [place] [address]- 6494 Nov, [facility] [place] [facility] [address] [id number] [place] [address]- 8018 Oct, [facility] [place] [facility] [address] [id number] [place] [address]- 7591 Oct, [facility] [place] [facility] [address] [id number] [place] [address]- 4403 Sep, [facility] [place] [facility] [address] [id number] [place] [address]- 6917 Sep, [facility] [place] [facility] [address] [id number] [place] [address]- 4843 Sep, [facility] [place] [facility] [address] [id number] [place] [address]- 8423 Sep, [facility] [place] [facility] [address] [id number] [place] [address]- 4957 Sep, [facility] [place] [facility] [address] [id number] [place] [address]- 2708 Sep, [facility] [place] [facility] [address] [id number] [place] [address]- 3451 Sep, [facility] [place] [facility] [address] [id number] [place] [address]- 7349 Sep, [facility] [place] [facility] [address] [id number] [place] [address]- 2142 August, [facility] [place] [facility] [address] [id number] [place] [address]- 6825 August, [facility] [place] [facility] [address] [id number] [place] [address]- 2451 August, [facility] [place] [facility] [address] [id number] [place] [address]- 1826 Jul, [facility] [place] [facility] [address] [id number] [place] [address]- 4747 Jul, [facility] [place] [facility] [address] [id number] [place] [address]- 5560 Jun, [facility] [address] [id number] [place] [address]- 6988 Jun, [facility] [place] [facility] [address] [id number] [place] [address]- 0576 Jun, [facility] [address] [id number] [place] [address]- 2486 Jun, [facility] [place] [facility] [address] [id number] [place] [address]- 8047 May, [facility] [address] [id number] [place] [address]- 8823 May, [facility] [address] [id number] [place] [address]- 8226 Apr, [facility] [address] [id number] [place] [address]- 8879 Apr, [facility] [address] [id number] [place] [address]- 9535 Apr, [facility] [address] [id number] [place] [address]- 2193 Mar, [facility] [address] [id number] [place] [address]- 1394 Mar, [facility] [address] [id number] [place] [address]- 5326 Mar, [facility] [place] [facility] [address] [id number] [place] [address]- 9752 Feb, [facility] [place] [facility] [address] [id number] [place] [address]- 5866 Feb, [facility] [place] [facility] [address] [id number] [place] [address]- 1795 Feb, [facility] [place] [facility] [address] [facility] [id number] [place] [address]- 9136 Feb, [facility] [place] [facility] [address] [id number] [place] [address]- 4235 25 Jan, 2011 [facility] [place] [facility] [address] [id number] [place] [address]- 1960 14 Jan, 2011 [facility] [place] [facility] [address] [id number] [place] [address]- 2542 12 Jan, 2011 [facility] [place] [facility] [address] [id number] [place] [address]- 7543 16 Dec, 2010 [facility] [place] [facility] [address] [id number] [place] [address] 13 Oct, 2010 [facility] [place] [facility] [address] [id number] [place] [address] 24 Mar, 2010 [facility] [place] [facility] [address] [id number] [place] [address] 26 Feb, 2010 [facility] [place] [facility] [address] [id number] [place] [address] 15 Feb, 2010 [facility] [place] [facility] [address] [id number] [place] [address] 16 May, 2009 [facility] [place] [facility] [address] [id number] [place] [address] Apr, [facility] [place] [facility] [address] [id number] [place] [address] 29 Mar, 2009 [facility] [place] [facility] [address] [id number] [place] [address] 30 Jan, 2009 [facility] [place] [facility] [address] [id number] [place] [address] 15 Oct, 2008 [facility] [place] [facility] [address] [id number] [place] [address] 16 Jul, 2008 [facility] [place] [facility] [address] [id number] [place] [address] 04 Mar, 2008 [facility] [place] [facility] [address] [id number] [place] [address] Feb, [facility] [place] [address] [facility] [place] [id number] [place] [address] Jan, IMMUNIZATIONS No Known Immunizations SOCIAL HISTORY Never Assessed REASON FOR VISIT Lab results PLAN OF CARE VITAL SIGNS MEDICATIONS Unknown [...]
--- OUTSIDE RECORDS SUMMARY | 2018-07-05 12:21 | XMS REPORT ---
Author Author KATHYA FISCHER Organization [facility] Address [address] [place] [address] Care Team Providers Care Stereotype Molder Name Role Phone KATHYA FISCHER Unavailable PROBLEMS Type Condition ICD9-CM Code CSL21-XF Code Onset Dates Condition Status SNOMED Code Problem Arthritis M19.90 Active 7347399 Problem 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 Active 97897898 Problem Polyneuropathy G62.9 Active 93865648 Problem Other male erectile dysfunction N52.8 Active 909874241 Problem Constipation K59.00 Active 02794134 Problem Type 2 diabetes mellitus with 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 E11.65 Active 665524483 Problem Controlled type 2 diabetes mellitus without complication, without long -term current use of insulin E11.9 Active 974571215 Problem FPC current use of insulin Z79.4 Active 838793306 Problem Neuropathy G62.9 Active 699451615 Problem Obstructive sleep apnea G47.33 Active 56042669 Problem Hypertension, benign I10 Active 86890443 Problem Uncontrolled type 2 diabetes mellitus without complication, without long-term current use of insulin E11.65 Active 905923516 Problem Stress incontinence of urine N39.3 Active 44059659 Problem Fibromyalgia M79.7 Active 987983479 ALLERGIES No Information ENCOUNTERS Encounter Location Date Diagnosis [facility] [id number] [place] [address] 00782- 2213 Feb, [facility] [address] [place] [address] 68071- 8816 Jan, [facility] [id number] [place] [address] 37230- 3209 Dec, Therapeutic drug monitoring Z51.81 and Controlled type 2 diabetes mellitus without complication, without long-term current use of insulin E11.9 [facility] [address] [place] [address] 30332- 6897 Dec, Renal insufficiency N28.9 [facility] [id number] [place] [address] 94830- 3029 Dec, [place] [address] 34534 2546 Dec, Dizziness R42 [facility] [address] 38092 2546 Dec, Dizziness R42 and Encounter for immunization Z23 [place] [address] 80170- 8337 Dec, Therapeutic drug monitoring Z51.81 and Controlled type 2 diabetes mellitus without complication, without long-term current use of insulin E11.9 [place] [id number] [place] [address] 81148- 9610 Dec, [place] [address] 54828- 0847 Dec, [place] [address] 37503- 6951 Dec, [place] [address] 27952- 4743 Nov, [place] [id number] [place] [address] 07800- 3720 Nov, Therapeutic drug monitoring Z51.81 [place] [id number] [place] [address] 32477 2542 Nov, [place] [id number] [place] [address] 36216 2547 Nov, Therapeutic drug monitoring Z51.81 ; Fibromyalgia M79.7 and Controlled type 2 diabetes mellitus without complication, without long-term current use of insulin E11.9 [facility] [id number] [place] [address] 59574- 2548 Nov, Type 2 diabetes mellitus with 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 E11.65 [place] [address] 50080- 7570 Nov, [facility] [address] [place] [address] 79060- 2575 Nov, [facility] [id number] [place] [address] 79730- 8480 Nov, Type 2 diabetes mellitus with 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 E11.65 [facility] [id number] [place] [address] 05442- 1771 Nov, [facility] [id number] [place] [address] 03265- 8716 Nov, [facility] [id number] [place] [address] 50062- 2930 Nov, Constipation K59.00 [facility] [id number] [place] [address] 59049- 8842 Oct, Diabetes type 2, controlled E11.9 [facility] [id number] [place] [address] 29237- 8298 Oct, Type 2 diabetes mellitus with 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 E11.65 ; 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 and Neuropathy G62.9 [facility] [id number] [place] [address] 30985- 4467 Oct, [facility] [id number] [place] [address] 82803- 7890 Oct, [facility] [id number] [place] [address] 04627- 7575 Oct, [facility] [address] [place] [address] 55368- 8793 Oct, [facility] [id number] [place] [address] 63225- 0673 Oct, [facility] [address] [place] [address] 56956- 2670 Oct, [facility] [id number] [place] [address] 41037- 6455 Oct, [facility] [address] [address]- 5324 Sep, [facility] [id number] [place] [address] 94958- 4936 Sep, Uncontrolled type 2 diabetes mellitus without complication, without long-term current use of insulin E11.65 [place] [id number] [place] [address] 05339- 4754 Sep, Hypertension, benign I10 ; Fibromyalgia M79.7 ; Controlled type 2 diabetes mellitus without complication, without long-term current use of insulin E11.9 and Uncontrolled type 2 diabetes mellitus without complication, without long-term current use of insulin E11.65 [place] [id number] [place] [address] 55481- 9221 Sep, [facility] [id number] [place] [address] 73127- 2636 Sep, Uncontrolled type 2 diabetes mellitus without complication, without long-term current use of insulin E11.65 [place] [address] [address]- 0558 Sep, [facility] [id number] [place] [address] 16097- 3692 Sep, [facility] [address] [address]- 1773 Sep, Uncontrolled type 2 diabetes mellitus without complication, without long-term current use of insulin E11.65 and Fibromyalgia M79.7 [facility] [address] [address]- 3336 August, [facility] [id number] [address] 2546 August, [facility] [address] [address]- 2546 August, [facility] [address] [address]- 7286 August, Fibromyalgia M79.7 [facility] [address] [place] [address] 32634- 2603 Jul, Hypertension, benign I10 [facility] [address] 08932- 4294 Jul, Fibromyalgia M79.7 [facility] [id number] [place] [address] 88249- 3244 Jul, [facility] [address] 09541- 1554 Jun, [facility] [address] 28870- 5889 Jun, Hypertension, benign I10 ; Arthritis M19.90 ; FPC current use 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 Z79.891 and Uncontrolled type 2 diabetes mellitus without complication, without long-term current use of insulin E11.65 [facility] [id number] [place] [address] 59544 -8443 Jun, Acute nasopharyngitis J00 and BMI 50.0-59.9, adult Z68.43 [facility] [address] 57192- 2032 Jun, Fibromyalgia M79.7 [facility] [id number] [place] [address] 73056- 1337 May, [facility] [id number] [place] [address] 86462- 6986 May, Fibromyalgia M79.7 [facility] [id number] [place] [address] 71602- 8013 Apr, Fibromyalgia M79.7 [facility] [id number] [place] [address] 69831- 5949 Apr, [facility] [id number] [place] [address] 98060- 2020 Apr, [facility] [address] [place] [address]- 8771 Apr, Arthritis M19.90 [facility] [id number] [place] [address] 15283 2546 Apr, Arthritis M19.90 [facility] [id number] [place] [address] 99976 2546 Apr, Arthritis M19.90 and Controlled type 2 diabetes mellitus without complication, without long-term current use of insulin E11.9 [facility] [id number] [place] [address] 76258 2544 Apr, [facility] [id number] [place] [address] 49821- 0336 Apr, Fibromyalgia M79.7 [facility] [id number] [place] [address] 44699 254 Mar, [facility] [id number] [place] [address] 82496- 7779 Mar, [facility] [id number] [place] [address] 00253 2540 Mar, Fibromyalgia M79.7 [facility] [id number] [place] [address] 31367 2549 Feb, [facility] [id number] [place] [address] 57860 2545 Feb, [facility] [id number] [place] [address] 57710 2548 Feb, [facility] [id number] [place] [address] 79318 2541 Feb, Fibromyalgia M79.7 [facility] [id number] [place] [address] 25655- 2545 Feb, Diabetes type 2, uncontrolled E11.65 and Encounter for immunization Z23 [facility] [id number] [place] [address] 01941- 8549 Jan, [facility] [address] [address]- 0567 Jan, Fibromyalgia M79.7 [facility] [id number] [place] [address] 56640- 1272 Dec, [facility] [id number] [place] [address] 87736- 2061 Dec, Fibromyalgia M79.7 [facility] [id number] [place] [address] 84081- 3223 Nov, [facility] [id number] [place] [address] 01259- 5070 Nov, [facility] [id number] [place] [address] 11658- 9212 Nov, 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 and Polyneuropathy G62.9 [facility] [id number] [place] [address] 21061- 7607 Nov, [facility] [id number] [place] [address] 32089- 8427 Nov, [facility] [id number] [place] [address] 80385- 4459 Oct, Diabetes type 2, uncontrolled E11.65 [facility] [id number] [place] [address] 18466- 2278 Oct, Diabetes type 2, uncontrolled E11.65 ; Polyneuropathy G62.9 and Pain in right wrist M25.531 [facility] [address] [place] [address] 54134- 8768 Oct, [facility] [id number] [place] [address] 35524- 8250 Oct, Pain in left shoulder M25.512 [facility] [id number] [place] [address] 20133- 6465 Sep, [facility] [id number] [place] [address] 86346- 8566 Sep, Pain in left shoulder M25.512 [facility] [id number] [address]- 7046 Sep, [facility] [id number] [place] [address] 34525- 7436 August, Pain in left shoulder M25.512 [facility] [id number] [place] [address] 84093- 5917 Jul, [facility] [id number] [place] [address] 98504- 6279 Jul, [facility] [id number] [place] [address] 14321- 9810 Jul, Pain in left shoulder M25.512 [facility] [id number] [place] [address] 97230- 9486 Jun, [facility] [id number] [place] [address] 66424- 5114 Jun, [facility] [address] [place] [address] 92498- 4392 Jun, Diabetes type 2, uncontrolled E11.65 ; Fibromyalgia M79.7 and Arthritis M19.90 [facility] [address] [place] [address] 11718- 9072 Jun, Pain in left shoulder M25.512 [facility] [address] [address]- 7806 May, [facility] [address] [address]- 1788 May, Diabetes type 2, controlled E11.9 [facility] [id number] [place] [address] 28467- 5166 May, [facility] [address] [address]- 7056 May, Uncontrolled type 2 diabetes mellitus without complication, without long-term current use of insulin E11.65 [facility] [address] [address]- 9761 15 May, 2016 Pain in left shoulder M25.512 [facility] [address] [address]- 6786 03 May, 2016 Diabetes type 2, controlled E11.9 and Uncontrolled type 2 diabetes mellitus without complication, without long-term current use of insulin E11.65 [facility] [id number] [place] [address] 51739- 4676 Apr, [facility] [id number] [place] [address] 48352- 7566 Apr, [facility] [id number] [place] [address] 86186- 1549 Mar, [facility] [id number] [place] [address] 37884- 5740 Mar, [facility] [id number] [place] [address] 99344- 6436 Mar, [facility] [id number] [place] [address] 94017- 9111 Feb, [facility] [id number] [place] [address] [id number] Feb, Dental examination Z01.20 [facility] [address] [place] [address] 66365- 3748 Jan, [facility] [address] [address]- 1064 14 Dec, 2015 [facility] [id number] [place] [address] 07943- 5315 Dec, [facility] [address] [place] [address] 829559- 8474 Dec, [facility] [address] [place] [address] 68671- 8855 Dec, Diabetes type 2, controlled E11.9 [facility] [address] [id number] [place] [address]- 8686 Nov, [facility] [address] [id number] [place] [address]- 5724 Nov, [facility] [address] [id number] [place] [address]- 0060 Nov, [facility] [address] [id number] [place] [address]- 4738 Nov, [facility] [address] [id number] [place] [address]- 1647 Oct, [facility] [address] [id number] [place] [address]- 7676 Oct, [facility] [address] [id number] [place] [address]- 7906 Oct, [facility] [address] [id number] [place] [address]- 5888 Sep, [facility] [address] [id number] [place] [address]- 9181 Sep, Diabetes type 2, controlled E11.9 [facility] [address] [id number] [place] [address]- 2872 Sep, Diabetes type 2, controlled E11.9 [facility] [address] [facility] [id number] [place] [address]- 7133 August, [facility] [address] [id number] [place] [address]- 7512 August, [facility] [address] [facility] [id number] [place] [address]- 1271 August, Type 2 diabetes mellitus without complication E11.9 and Pain in left shoulder M25.512 [facility] [address] [id number] [place] [address]- 8859 Jul, [facility] [id number] [place] [address] 45161- 7381 Jul, Diabetes type 2, controlled E11.9 and Hypertension, benign I10 [facility] [id number] [place] [address], [place] [address]- 9879 Jun, [facility] [id number] [place] [address] 84699- 0309 Jun, [facility] [id number] [place] [address] 36977- 9348 Jun, Diabetes 250.00 [facility] [id number] [place] [address] 19562- 2793 Jun, [facility] [id number] [place] [address] 58766- 6407 May, Diabetes type 2, uncontrolled E11.65 [facility] [id number] [place] [address] 71278- 1403 May, [facility] [id number] [place] [address] 11731- 3999 Apr, Type 2 diabetes mellitus without complication E11.9 [facility] [id number] [place] [address] 06910- 8134 Apr, Encounter for immunization Z23 [facility] [id number] [place] [address] 68607- 9652 Apr, [facility] [id number] [place] [address] 83799- 7372 Mar, [facility] [id number] [place] [address] 94956- 7868 Mar, [facility] [id number] [place] [address] 63192- 7560 Mar, [facility] [id number] [place] [address] 57581- 7171 Feb, [facility] [id number] [place] [address] 87728- 2546 Jan, [facility] [id number] 4283 Jan, [facility] [address] [address]- 2856 Jan, [facility] [address] 3427 Dec, Diabetes 250.00 and COPD (chronic obstructive pulmonary disease) 496 [facility] [address] [facility] [id number] 3795 Dec, [facility] [address] [place] [address] 651853- 4095 Dec, [facility] [address]- 8157 Nov, [facility] [address] [address]- 6661 Oct, Diabetes 250.00 [facility] [address] [address]- 0204 Sep, [facility] [address] [address]- 6912 Sep, [facility] [address] [address]- 1687 Sep, [facility] [address]- 4022 Sep, Diabetes 250.00 [facility] [id number] [address]- 6044 Sep, [facility] [address] 0252 Sep, [facility] [id number] [address]- 9484 August, Hypertension, essential, benign 401.1 ; Coronary atherosclerosis of [place] coronary artery 414.01 and Diabetic neuropathy associated with type 2 diabetes mellitus 250.60 [facility] [address] [facility] [id number] [place] [address]- 8478 29 Jul, 2014 [facility] [address] [facility] [id number] [address]- 9756 14 Jul, 2014 [facility] [address] [address]- 3273 Jul, [facility] [address] [facility] [id number] [address]- 0213 Jun, [facility] [id number] [place] [address]- 7882 Jun, [facility] [id number] [address]- 6780 Jun, [facility] [address] [address]- 1531 Jun, [facility] [address] [address]- 4613 Jun, [facility] [address] [address]- 2855 May, [facility] [address] [address]- 8627 May, [facility] [address] [address]- 9674 May, [facility] [address] [address]- 7716 May, [facility] [id number] 6192 May, [facility] [address] 7924 May, [facility] [id number] 1990 May, [facility] [place] [facility] [address] [id number] [place] [address]- 3499 Apr, [facility] [place] [facility] [address] [id number] [place] [address]- 4387 Apr, [facility] [place] [facility] [address] [id number] [place] [address]- 8274 Apr, [facility] [place] [facility] [address] [id number] [place] [address]- 5206 Apr, [facility] [place] [facility] [address] [id number] [place] [address]- 9539 Mar, [facility] [place] [facility] [address] [id number] [place] [address]- 8808 Mar, [facility] [place] [facility] [address] [id number] [place] [address]- 6840 Mar, [facility] [place] [facility] [address] [id number] [place] [address]- 1940 Mar, [facility] [place] [facility] [address] [id number] [place] [address]- 9942 Feb, [facility] [place] [facility] [address] [id number] [place] [address]- 1390 Feb, [facility] [place] [facility] [address] [id number] [place] [address]- 7992 Feb, [facility] [place] [facility] [address] [id number] [place] [address] Feb, [facility] [place] [facility] [address] [id number] [place] [address] Feb, [facility] [place] [facility] [address] [id number] [place] [address] Feb, [facility] [place] [facility] [address] [id number] [place] [address] Feb, [facility] [place] [facility] [address] [id number] [place] [address] Jan, [facility] [place] [facility] [address] [id number] [place] [address] Jan, [facility] [place] [facility] [address] [id number] [place] [address] Dec, [facility] [place] [facility] [address] [id number] [place] [address] Dec, [facility] [place] [facility] [address] [id number] [place] [address] Dec, [facility] [place] [facility] [address] [id number] [place] [address] Dec, [facility] [place] [facility] [address] [id number] [place] [address] Dec, [facility] [place] [facility] [address] [id number] [place] [address] Dec, [facility] [place] [facility] [address] [id number] [place] [address] Dec, [facility] [place] [facility] [address] [id number] [place] [address] Dec, [facility] [place] [facility] [address] [id number] [place] [address] Nov, [facility] [place] [facility] [address] [id number] [place] [address] Nov, [facility] [place] [facility] [address] [address] [id number] [place] [address] Nov, [facility] [place] [facility] [address] [id number] [place] [address] Nov, [facility] [place] [facility] [address] [id number] [place] [address] Oct, [facility] [place] [facility] [address] [id number] [place] [address] 89[address] Oct, [facility] [place] [facility] [address] [id number] [place] [address] Oct, [facility] [address] [id number] [place] [address] 6[address] Oct, [facility] [place] [facility] [address] [id number] [place] [address] Oct, [facility] [place] [facility] [address] [id number] [place] [address]28 Oct, [facility] [place] [facility] [address] [id number] [place] [address] Oct, [facility] [place] [facility] [address] [id number] [place] [address] 47[address] Oct, [facility] [place] [facility] [address] [id number] [place] [address] 4[address] Sep, [facility] [place] [facility] [address] [id number] [place] [address] Sep, [facility] [address] [id number] [place] [address] August, [facility] [place] [facility] [address] [id number] [place] [address] 97[address] August, [facility] [address] [id number] [place] [address] 8[address] Jul, [facility] [place] [facility] [address] [id number] [place] [address] 30[address] Jul, [facility] [place] [facility] [address] [id number] [place] [address] Jul, [facility] [place] [facility] [address] [id number] [place] [address]- 4385 Jul, [facility] [place] [facility] [address] [id number] [place] [address]- 5702 Jul, [facility] [place] [facility] [address] [id number] [place] [address]- 9665 Jul, [facility] [address] [id number] [place] [address]- [address]97 Jul, [facility] [place] [facility] [address] [id number] [place] [address]- 2575 Jul, [facility] [place] [facility] [address] [id number] [place] [address] Jun, [facility] [place] [facility] [address] [id number] [place] [address]- 390[address] Jun, [facility] [place] [facility] [address] [id number] [place] [address]- 3[address] Jun, [facility] [place] [facility] [address] [id number] [place] [address]- 7286 Jun, [facility] [place] [facility] [address] [id number] [place] [address]- [address]77 May, [facility] [place] [facility] [address] [id number] [place] [address]- 7900 May, [facility] [place] [facility] [address] [id number] [place] [address]- 3631 Apr, [facility] [place] [facility] [address] [id number] [place] [address]- 0255 Apr, [facility] [place] [facility] [address] [id number] [place] [address]- 3911 Mar, [facility] [place] [facility] [address] [id number] [place] [address]- 1449 Mar, [facility] [place] [facility] [address] [id number] [place] [address]- 3179 Mar, [facility] [place] [facility] [address] [id number] [place] [address]- 1756 Mar, [facility] [place] [facility] [address] [id number] [place] [address] 9058 Mar, [facility] [place] [facility] [address] [id number] [place] [address]- [address] 18 Mar, 2013 [facility] [place] [facility] [address] [id number] [place] [address]- 8697 Feb, [facility] [place] [facility] [address] [id number] [place] [address]- [address] Feb, [facility] [place] [facility] [address] [id number] [place] [address]- 5847 Feb, [facility] [place] [facility] [address] [id number] [place] [address]- 3944 Feb, [facility] [place] [facility] [address] [id number] [place] [address]- 7377 Feb, [facility] [place] [facility] [address] [id number] [place] [address]- 2922 Feb, [facility] [place] [facility] [address] [id number] [place] [address] 6579 Feb, [facility] [place] [facility] [address] [id number] [place] [address] 75[address] Feb, [facility] [place] [facility] [address] [id number] [place] [address]- 4564 15 Jan, 2013 [facility] [place] [facility] [address] [id number] [place] [address]- [address] 15 Jan, 2013 [facility] [place] [facility] [address] [id number] [place] [address]296 14 Jan, 2013 [facility] [place] [facility] [address] [id number] [place] [address]- 1335 14 Jan, 2013 [facility] [place] [facility] [address] [id number] [place] [address]- 9084 18 Dec, 2012 [facility] [place] [facility] [address] [id number] [place] [address]- [address]94 13 Dec, 2012 [facility] [place] [facility] [address] [id number] [place] [address]- [address] 2012 [facility] [place] [facility] [address] [id number] [place] [address]- 4406 Nov, [facility] [place] [facility] [address] [id number] [place] [address]- 8346 Nov, [facility] [place] [facility] [address] [id number] [place] [address]- 3342 Oct, [facility] [place] [facility] [address] [id number] [place] [address]- 4438 Oct, [facility] [place] [facility] [address] [id number] [place] [address]- 1165 Oct, [facility] [place] [facility] [address] [id number] [place] [address]- 8016 Sep, [facility] [place] [facility] [address] [id number] [place] [address]- 8349 Sep, [facility] [place] [facility] [address] [id number] [place] [address]- 4660 Sep, [facility] [place] [facility] [address] [id number] [place] [address]- 7924 Sep, [facility] [place] [facility] [address] [id number] [place] [address]- 4264 Sep, [facility] [place] [facility] [address] [id number] [place] [address]- 8200 Sep, [facility] [place] [facility] [address] [id number] [place] [address]- 6077 August, [facility] [place] [facility] [address] [id number] [place] [address]- 1731 August, [facility] [place] [facility] [address] [id number] [place] [address]- 6302 August, [facility] [place] [facility] [address] [id number] [place] [address]- 5870 August, [facility] [place] [facility] [address] [id number] [place] [address]- 3678 August, [facility] [address] [id number] [place] [address]- 7961 August, [facility] [address] [id number] [place] [address]- 4163 August, [facility] [address] [id number] [place] [address]- 9132 Jul, [facility] [address] [id number] [place] [address]- 2359 Jul, [facility] [address] [id number] [place] [address]- 4726 Jun, [facility] [address] [id number] [place] [address]- 2489 Jun, [facility] [address] [id number] [place] [address]- 4019 May, [facility] [address] [id number] [place] [address]- 9235 May, [facility] [address] [id number] [place] [address]- 0831 Apr, [facility] [address] [id number] [place] [address]- 0437 Mar, [facility] [address] [id number] [place] [address]- 0860 Mar, [facility] [place] [facility] [address] [id number] [place] [address]- 5923 Mar, [facility] [place] [facility] [address] [id number] [place] [address]- 8530 Mar, [facility] [place] [facility] [address] [facility] [id number] [place] [address]- 6507 Mar, [facility] [place] [facility] [address] [facility] [id number] [place] [address]- 6086 Mar, [facility] [place] [facility] [address] [id number] [place] [address]- 1712 Feb, [facility] [address] [id number] [place] [address]- 5702 Feb, [facility] [place] [facility] [address] [id number] [place] [address]- 6887 Feb, [facility] [place] [facility] [address] [id number] [place] [address]- 5554 Feb, [facility] [place] [facility] [address] [id number] [place] [address]- 3118 Feb, [facility] [place] [facility] [address] [id number] [place] [address], [place] [address]- 9486 Feb, [facility] [place] [facility] [address] [facility] [id number] [place] [address]- 1519 Feb, [facility] [place] [facility] [address] [facility] [id number] [place] [address]- 1845 Feb, [facility] [place] [facility] [address] [id number] [place] [address]- 3673 Jan, [facility] [place] [facility] [address] [facility] [id number] [place] [address]- 2660 Jan, [facility] [place] [facility] [address] [facility] [id number] [place] [address]- 1770 28 Dec, 2011 [facility] [place] [facility] [address] [facility] [id number] [place] [address]- 2545 19 Dec, 2011 [facility] [place] [facility] [address] [id number] [place] [address]- 8049 18 Dec, 2011 [facility] [place] [facility] [address] [id number] [place] [address]- 8723 18 Dec, 2011 [facility] [place] [facility] [address] [facility] [id number] [place] [address]- 9931 04 Dec, 2011 [facility] [place] [facility] [address] [facility] [id number] [place] [address]- 0150 Nov, [facility] [place] [facility] [address] [id number] [place] [address]- 9702 Oct, [facility] [place] [facility] [address] [id number] [place] [address]- 4141 Oct, [facility] [place] [facility] [address] [id number] [place] [address]- 6834 Sep, [facility] [place] [facility] [address] [id number] [place] [address]- 7646 Sep, [facility] [place] [facility] [address] [id number] [place] [address]- 0901 Sep, [facility] [place] [facility] [address] [id number] [place] [address]- 0750 Sep, [facility] [place] [facility] [address] [id number] [place] [address]- 0107 Sep, [facility] [place] [facility] [address] [id number] [place] [address]- 8748 Sep, [facility] [place] [facility] [address] [id number] [place] [address]- 1942 Sep, [facility] [place] [facility] [address] [id number] [place] [address]- 1914 Sep, [facility] [place] [facility] [address] [id number] [place] [address]- 3916 August, [facility] [place] [facility] [address] [id number] [place] [address]- 1403 August, [facility] [place] [facility] [address] [id number] [place] [address]- 6728 August, [facility] [place] [facility] [address] [id number] [place] [address]- 4962 Jul, [facility] [place] [facility] [address] [id number] [place] [address]- 7341 Jul, [facility] [place] [facility] [address] [id number] [place] [address]- 0278 Jun, [facility] [address] [id number] [place] [address]- 9117 Jun, [facility] [place] [facility] [address] [id number] [place] [address]- 4986 Jun, [facility] [address] [id number] [place] [address]- 3046 Jun, [facility] [place] [facility] [address] [id number] [place] [address]- 2070 May, [facility] [address] [id number] [place] [address]- 6360 May, [facility] [address] [id number] [place] [address]- 6809 Apr, [facility] [address] [id number] [place] [address]- 6327 Apr, [facility] [address] [id number] [place] [address]- 7888 Apr, [facility] [address] [id number] [place] [address]- 9050 Mar, [facility] [address] [id number] [place] [address]- 0714 Mar, [facility] [address] [id number] [place] [address]- 4955 Mar, [facility] [place] [facility] [address] [id number] [place] [address]- 1770 Feb, [facility] [place] [facility] [address] [id number] [place] [address]- 5503 Feb, [facility] [place] [facility] [address] [id number] [place] [address]- 2567 Feb, [facility] [place] [facility] [address] [facility] [id number] [place] [address]- 9759 Feb, [facility] [place] [facility] [address] [id number] [place] [address]- 4369 25 Jan, 2011 [facility] [place] [facility] [address] [id number] [place] [address]- 2565 14 Jan, 2011 [facility] [place] [facility] [address] [id number] [place] [address]- 2547 12 Jan, 2011 [facility] [place] [facility] [address] [id number] [place] [address]- 6163 16 Dec, 2010 [facility] [place] [facility] [address] [id number] [place] [address]- 2544 13 Oct, 2010 [facility] [place] [facility] [address] [id number] [place] [address]- 8322 24 Mar, 2010 [facility] [place] [facility] [address] [id number] [place] [address]- 3146 26 Feb, 2010 [facility] [place] [facility] [address] [id number] [place] [address]- 3038 15 Feb, 2010 [facility] [place] [facility] [address] [id number] [place] [address]- 0114 16 May, 2009 [facility] [place] [facility] [address] [id number] [place] [address]- 8394 Apr, [facility] [place] [facility] [address] [id number] [place] [address]- 7300 29 Mar, 2009 [facility] [place] [facility] [address] [id number] [place] [address]- 0997 30 Jan, 2009 [facility] [place] [facility] [address] [id number] [place] [address]- 4738 15 Oct, 2008 [facility] [place] [facility] [address] [id number] [place] [address]- 3159 16 Jul, 2008 [facility] [place] [facility] [address] [id number] [place] [address] 2541 04 Mar, 2008 [facility] [place] [facility] [address] [id number] [place] [address]- 2537 Feb, [facility] [address] [facility] [id number] [place] [address]- 5716 Jan, IMMUNIZATIONS No Known Immunizations SOCIAL HISTORY Never Assessed REASON FOR VISIT Lab (walk-in) PLAN OF CARE Activity Details Future/Pending Procedure ROUTINE VENIPUNCTURE VITAL SIGNS MEDICATIONS Unknown Medications RESULTS No Results PROCEDURES Procedure Date Ordered Result Body Site LAB NOT BILLED BY [facility] Jan 11, 2018 VENIPUNCT, ROUTINE* Jan 11, 2018 INSTRUCTIONS MEDICATIONS ADMINISTERED No Known Medications MEDICAL [...]
--- OUTSIDE RECORDS SUMMARY | 2018-07-05 12:21 | XMS REPORT ---
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 Name Role Phone KATHYA FISCHER Unavailable PROBLEMS Type Condition ICD9-CM Code KHI09-KZ Code Onset Dates Condition Status SNOMED Code Problem Arthritis M19.90 Active 0646307 Problem 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 Active 12213036 Problem Polyneuropathy G62.9 Active 00458703 Problem Other male erectile dysfunction N52.8 Active 980697706 Problem Constipation K59.00 Active 42468681 Problem Type 2 diabetes mellitus with 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 E11.65 Active 972292296 Problem Controlled type 2 diabetes mellitus without complication, without long -term current use of insulin E11.9 Active 257712121 Problem long-term current use of insulin Z79.4 Active 699865084 Problem Neuropathy G62.9 Active 561151918 Problem Obstructive sleep apnea G47.33 Active 83603790 Problem Hypertension, benign I10 Active 63557788 Problem Uncontrolled type 2 diabetes mellitus without complication, without long-term current use of insulin E11.65 Active 222497103 Problem Stress incontinence of urine N39.3 Active 85191316 Problem Fibromyalgia M79.7 Active 225051843 ALLERGIES No Information ENCOUNTERS Encounter Location Date Diagnosis [facility] [address] [place] [address] 15997- 1508 Feb, [facility] [address] [address] Dec, Therapeutic drug monitoring Z51.81 and Controlled type 2 diabetes mellitus without complication, without long-term current use of insulin E11.9 [facility] [id number] [address] 6048 Dec, Renal insufficiency N28.9 [facility] [id number] [place] [address] 70800- 5481 Dec, [facility] [id number] [place] [address] 37645- 7415 Dec, Dizziness R42 [facility] [address] 28834- 2546 Dec, Dizziness R42 and Encounter for immunization Z23 [facility] [address] 83656- 8045 Dec, Therapeutic drug monitoring Z51.81 and Controlled type 2 diabetes mellitus without complication, without long-term current use of insulin E11.9 [facility] [id number] [place] [address] 87190- 9459 Dec, [facility] [id number] [place] [address] 56237- 4743 Dec, [facility] [id number] [place] [address] 25685- 2435 Dec, [facility] [id number] [place] [address] 94982- 2904 Nov, [facility] [id number] [place] [address] 90553- 7967 Nov, Therapeutic drug monitoring Z51.81 [facility] [id number] [place] [address] 24303- 6999 Nov, [facility] [id number] [place] [address] 94081- 7843 Nov, Therapeutic drug monitoring Z51.81 ; Fibromyalgia M79.7 and Controlled type 2 diabetes mellitus without complication, without long-term current use of insulin E11.9 [facility] [id number] [place] [address] 62163- 8140 Nov, Type 2 diabetes mellitus with 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 E11.65 [facility] [id number] [place] [address] 16031- 4257 Nov, [facility] [id number] [place] [address] 56703- 7267 Nov, [facility] [address] [place] [address] 40333- 5599 Nov, Type 2 diabetes mellitus with 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 E11.65 [facility] [id number] [place] [address] 24630- 8560 Nov, [facility] [id number] [place] [address] 77603- 4511 Nov, [facility] [id number] [place] [address] 19965- 2657 Nov, Constipation K59.00 [facility] [id number] [place] [address] 48766- 3089 Oct, Diabetes type 2, controlled E11.9 [facility] [id number] [place] [address] 20208- 1304 Oct, Type 2 diabetes mellitus with 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 E11.65 ; long-term current use of insulin Z79.4 and Neuropathy G62.9 [facility] [id number] [place] [address] 75596- 7774 Oct, [facility] [id number] [place] [address] 84358- 3481 Oct, [facility] [id number] [place] [address] 07917- 5583 Oct, [facility] [id number] [place] [address] 94793- 8316 Oct, [facility] [address] [address]- 5119 Oct, [facility] [id number] [place] [address] 01635- 6266 Oct, [facility] [address] [address]- 6755 Oct, [facility] [id number] [place] [address] 68190- 2919 Sep, [facility] [address] [address] 2546 Sep, Uncontrolled type 2 diabetes mellitus without complication, without long-term current use of insulin E11.65 [facility] [address] [address] 2546 Sep, Hypertension, benign I10 ; Fibromyalgia M79.7 ; Controlled type 2 diabetes mellitus without complication, without long-term current use of insulin E11.9 and Uncontrolled type 2 diabetes mellitus without complication, without long-term current use of insulin E11.65 [facility] [address] [address] 2546 Sep, [facility] [id number] [place] [address] 96237 2546 Sep, Uncontrolled type 2 diabetes mellitus without complication, without long-term current use of insulin E11.65 [facility] [address] [address] 2546 Sep, [facility] [address] [address] 2546 Sep, [facility] [address] [place] [address] 32027 2546 Sep, Uncontrolled type 2 diabetes mellitus without complication, without long-term current use of insulin E11.65 and Fibromyalgia M79.7 [facility] [address] [address] 2546 August, [facility] [address] [address] 2546 August, [facility] [address] [address] 2546 August, [facility] [address] [address] 2546 August, Fibromyalgia M79.7 [facility] [address] [address]- 8197 Jul, Hypertension, benign I10 [facility] [id number] [place] [address] 46201- 4863 Jul, Fibromyalgia M79.7 [facility] [id number] [place] [address] 30580- 1412 Jul, [facility] [id number] [place] [address] 99509- 4983 Jun, [facility] [address] 22927- 2787 Jun, Hypertension, benign I10 ; Arthritis M19.90 ; 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 and Uncontrolled type 2 diabetes mellitus without complication, without long-term current use of insulin E11.65 [facility] [id number] [place] [address] 40589 -3613 Jun, Acute nasopharyngitis J00 and BMI 50.0-59.9, adult Z68.43 [facility] [id number] [place] [address] 97868- 4406 Jun, Fibromyalgia M79.7 [facility] [id number] [place] [address] 95864- 1302 May, [facility] [id number] [place] [address] 20832- 2154 May, Fibromyalgia M79.7 [facility] [id number] [place] [address] 80106- 1556 Apr, Fibromyalgia M79.7 [facility] [id number] [place] [address] 29682- 5951 Apr, [facility] [id number] [place] [address] 45005- 7828 Apr, [facility] [id number] [place] [address] 31843- 0830 Apr, Arthritis M19.90 [facility] [id number] [place] [address] 28221- 8587 10 Apr, 2017 Arthritis M19.90 [facility] [address] 83127- 9870 10 Apr, 2017 Arthritis M19.90 and Controlled type 2 diabetes mellitus without complication, without long-term current use of insulin E11.9 [facility] [address] 02992- 9686 Apr, [facility] [address] 54286 2542 Apr, Fibromyalgia M79.7 [facility] [address] 01500- 8546 Mar, [facility] [id number] [place] [address] 27320- 6331 Mar, [facility] [address] 50765- 8119 Mar, Fibromyalgia M79.7 [facility] [id number] [place] [address] 46283- 0362 Feb, [facility] [id number] [place] [address] 46865- 8882 Feb, [facility] [id number] [place] [address] 61015- 8060 Feb, [facility] [id number] [place] [address] 95354- 2549 Feb, Fibromyalgia M79.7 [facility] [id number] [place] [address] 91619- 2545 Feb, Diabetes type 2, uncontrolled E11.65 and Encounter for immunization Z23 [facility] [id number] [place] [address] 77538- 1466 Jan, [facility] [id number] [place] [address] 22160- 2351 Jan, Fibromyalgia M79.7 [facility] [address] [place] [address] 78155- 2775 Dec, [facility] [id number] [place] [address] 62920- 9518 Dec, Fibromyalgia M79.7 [facility] [id number] [place] [address] 39596- 5745 Nov, [facility] [id number] [place] [address] 87822- 3124 Nov, [facility] [id number] [place] [address] 03078- 8967 Nov, 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 and Polyneuropathy G62.9 [facility] [id number] [place] [address] 82575- 7885 Nov, [facility] [id number] [place] [address] 14377- 0088 Nov, [facility] [id number] [place] [address] 84570- 7614 Oct, Diabetes type 2, uncontrolled E11.65 [facility] [id number] [place] [address] 53039- 2369 Oct, Diabetes type 2, uncontrolled E11.65 ; Polyneuropathy G62.9 and Pain in right wrist M25.531 [facility] [id number] [place] [address] 26505- 5873 Oct, [facility] [id number] [place] [address] 98102- 4510 Oct, Pain in left shoulder M25.512 [facility] [id number] [place] [address] 01458- 6860 Sep, [facility] [id number] [place] [address] 01532- 2371 Sep, Pain in left shoulder M25.512 [facility] [address] [address]- 5272 Sep, [facility] [id number] [place] [address] 81299- 8365 August, Pain in left shoulder M25.512 [facility] [address] [address]- 0900 Jul, [facility] [id number] [place] [address] 15773- 0742 Jul, [facility] [id number] [place] [address] 35892- 3432 Jul, Pain in left shoulder M25.512 [facility] [id number] [place] [address] 93650- 2925 Jun, [facility] [id number] [place] [address] 84006- 4108 Jun, [facility] [id number] [place] [address] 94861- 4999 Jun, Diabetes type 2, uncontrolled E11.65 ; Fibromyalgia M79.7 and Arthritis M19.90 [facility] [id number] [place] [address] 78450- 3385 Jun, Pain in left shoulder M25.512 [facility] [address] [place] [address] 99261- 5896 May, [facility] [address] [place] [address] 88693- 1668 May, Diabetes type 2, controlled E11.9 [facility] [id number] [place] [address] 96370- 1597 May, [facility] [id number] [place] [address] 02763- 6067 May, Uncontrolled type 2 diabetes mellitus without complication, without long-term current use of insulin E11.65 [facility] [id number] [place] [address] 35157- 3117 15 May, 2016 Pain in left shoulder M25.512 [facility] [address] [address]- 9245 May, Diabetes type 2, controlled E11.9 and Uncontrolled type 2 diabetes mellitus without complication, without long-term current use of insulin E11.65 [facility] [address] [address]- 7529 Apr, [facility] [id number] [place] [address] 81355- 4992 Apr, [facility] [id number] [place] [address] 66395- 0330 Mar, [facility] [id number] [place] [address] 63073- 1808 Mar, [facility] [id number] [place] [address] 51103- 8203 Mar, [facility] [id number] [place] [address] 33231- 0090 Feb, [facility] [id number] [place] [address] [id number] Feb, Dental examination Z01.20 [facility] [address] [place] [address] 36073- 6851 Jan, [facility] [id number] [place] [address] 05824- 4569 Dec, [facility] [id number] [place] [address] 78541- 3908 Dec, [facility] [id number] [place] [address] 05363- 9474 Dec, [facility] [id number] [place] [address] 80560- 3830 Dec, Diabetes type 2, controlled E11.9 [facility] [id number] [place] [address] 55836- 9806 Nov, [facility] [address] [facility] [id number] [place] [address]- 4370 Nov, [facility] [address] [facility] [id number] [place] [address]- 5570 Nov, [facility] [address] [facility] [id number] [place] [address]- 3340 Nov, [facility] [address] [facility] [id number] [place] [address]- 7122 Oct, [facility] [address] [facility] [id number] [place] [address]- 4292 Oct, [facility] [address] [facility] [id number] [place] [address]- 7269 Oct, [facility] [address] [facility] [id number] [place] [address]- 1134 Sep, [facility] [address] [facility] [id number] [place] [address]- 3193 Sep, Diabetes type 2, controlled E11.9 [facility] [id number] [address]- 3022 Sep, Diabetes type 2, controlled E11.9 [facility] [id number] [address]- 2176 August, [facility] [address] [address]- 3581 August, [facility] [address] [facility] [id number] [address]- 7490 August, Type 2 diabetes mellitus without complication E11.9 and Pain in left shoulder M25.512 [facility] [id number] [address]- 1497 Jul, [facility] [address] [facility] [id number] [place] [address]- 8567 Jul, Diabetes type 2, controlled E11.9 and Hypertension, benign I10 [facility] [id number] [place] [address] 23801- 5480 Jun, [facility] [id number] [place] [address] 97414- 6586 Jun, [facility] [id number] [place] [address] 86897- 1770 Jun, Diabetes 250.00 [facility] [address] 48600- 0742 Jun, [facility] [id number] [place] [address] 31431- 1385 May, Diabetes type 2, uncontrolled E11.65 [facility] [id number] [place] [address] 08021- 6423 May, [facility] [id number] [place] [address] 08470- 2754 Apr, Type 2 diabetes mellitus without complication E11.9 [facility] [id number] [place] [address] 24422- 6138 Apr, Encounter for immunization Z23 [facility] [id number] [place] [address] 15689- 4872 Apr, [facility] [id number] [place] [address] 69955- 2596 Mar, [facility] [id number] [place] [address] 80856- 4575 Mar, [facility] [id number] [place] [address] 55331- 3589 Mar, [facility] [id number] [place] [address] 60110- 2071 Feb, [facility] [id number] [place] [address] 09969- 6357 Jan, [facility] [id number] [place] [address] 26013- 2546 Jan, [facility] [address] [address]- 4950 Jan, [facility] [address] [address]- 6957 Dec, Diabetes 250.00 and COPD (chronic obstructive pulmonary disease) 496 [facility] [address] [place] [address] 690000- 4663 Dec, [facility] [address] [address]- 1778 Dec, [facility] [id number] [place] [address] 034811- 2829 Nov, [facility] [id number] [place] [address] 42303- 9623 Oct, Diabetes 250.00 [facility] [id number] [place] [address] 20441- 2668 Sep, [facility] [address] [place] [address] 65933- 2136 Sep, [facility] [address] [place] [address] 60217- 6259 Sep, [facility] [address] [address]- 0775 Sep, Diabetes 250.00 [facility] [address] [place] [address] 16329- 5246 Sep, [facility] [address] [address]- 0134 Sep, [facility] [id number] [place] [address] 894865- 5207 August, Hypertension, essential, benign 401.1 ; Coronary atherosclerosis of [employer] coronary artery 414.01 and Diabetic neuropathy associated with type 2 diabetes mellitus 250.60 [facility] [address] [place] [address] 85528- 2546 29 Jul, 2014 [facility] [place] [facility] [address] [id number] [place] [address]- 8022 14 Jul, 2014 [facility] [place] [facility] [address] [id number] [place] [address]- 2796 Jul, [facility] [place] [facility] [address] [facility] [id number] [place] [address]- 2037 Jun, [facility] [place] [facility] [address] [id number] [place] [address] Jun, [facility] [place] [facility] [address] [id number] [place] [address] Jun, [facility] [place] [facility] [address] [facility] [id number] [place] [address] Jun, [facility] [place] [facility] [address] [facility] [id number] [place] [address] Jun, [facility] [place] [facility] [address] [facility] [id number] [place] [address] May, [facility] [place] [facility] [address] [id number] [place] [address] May, [facility] [place] [facility] [address] [facility] [id number] [place] [address] May, [facility] [place] [facility] [address] [facility] [id number] [place] [address] May, 2014 [facility] [place] [facility] [address] [facility] [id number] [address] May, [facility] [place] [facility] [address] [id number] [place] [address] May, [facility] [place] [facility] [address] [facility] [facility] [id number] [place] [address] May, [facility] [place] [facility] [address] [facility] [id number] [address] Apr, [facility] [place] [facility] [address] [id number] [place] [address] 4[address] Apr, [facility] [place] [facility] [address] [id number] [place] [address]- 7742 Apr, [facility] [place] [facility] [address] [id number] [place] [address]- 8892 Apr, [facility] [place] [facility] [address] [id number] [place] [address] 7049 Mar, [facility] [place] [facility] [address] [id number] [place] [address] 4249 Mar, [facility] [place] [facility] [address] [id number] [place] [address] 2901 Mar, [facility] [place] [facility] [address] [id number] [place] [address] 6258 Mar, [facility] [place] [facility] [address] [id number] [place] [address] 3394 Feb, [facility] [place] [facility] [address] [id number] [place] [address]- 8824 Feb, [facility] [place] [facility] [address] [id number] [place] [address]- 1692 Feb, [facility] [place] [facility] [address] [id number] [place] [address]- 6581 Feb, [facility] [place] [facility] [address] [id number] [place] [address]- 3906 Feb, [facility] [place] [facility] [address] [id number] [place] [address]- 5801 Feb, [facility] [place] [facility] [address] [id number] [place] [address]- 3625 Feb, [facility] [place] [facility] [address] [id number] [place] [address]- 2973 Jan, [facility] [place] [facility] [address] [id number] [place] [address]- 9278 Jan, [facility] [place] [facility] [address] [id number] [place] [address]- 3886 Dec, [facility] [place] [facility] [address] [id number] [place] [address]- 0349 Dec, [facility] [place] [facility] [address] [id number] [place] [address]- 8841 Dec, [facility] [place] [facility] [address] [id number] [place] [address]- 5964 Dec, 2013 [facility] [place] [facility] [address] [id number] [place] [address]- 7642 Dec, [facility] [place] [facility] [address] [id number] [place] [address]- 9447 Dec, [facility] [place] [facility] [address] [id number] [place] [address]- 8221 Dec, [facility] [place] [facility] [address] [id number] [place] [address]- 3758 Dec, [facility] [place] [facility] [address] [id number] [place] [address]- 9128 Nov, [facility] [place] [facility] [address] [id number] [place] [address]- 7793 Nov, [facility] [place] [facility] [address] [id number] [place] [address]- 4124 Nov, [facility] [place] [facility] [address] [id number] [place] [address]- 3348 Nov, [facility] [place] [facility] [address] [id number] [place] [address]- 6582 Oct, [facility] [place] [facility] [address] [id number] [place] [address]- 0998 Oct, [facility] [place] [facility] [address] [id number] [place] [address]- 3120 Oct, [facility] [place] [facility] [address] [id number] [place] [address]- 0423 Oct, [facility] [address] [id number] [place] [address]- 3507 Oct, [facility] [place] [facility] [address] [id number] [place] [address]- 1786 Oct, [facility] [place] [facility] [address] [id number] [place] [address]- 2746 Oct, [facility] [place] [facility] [address] [id number] [place] [address]- 8793 Oct, [facility] [place] [facility] [address] [id number] [place] [address]- 8083 Sep, [facility] [place] [facility] [address] [id number] [place] [address]- 0935 Sep, [facility] [place] [facility] [address] [id number] [place] [address]- 0868 August, [facility] [place] [facility] [address] [id number] [place] [address]- 1471 August, [facility] [place] [facility] [address] [id number] [place] [address]- 7674 Jul, [facility] [place] [facility] [address] [id number] [place] [address]- 4132 Jul, [facility] [place] [facility] [address] [id number] [place] [address]- 0780 Jul, [facility] [place] [facility] [address] [id number] [place] [address]- 8943 Jul, [facility] [place] [facility] [address] [id number] [place] [address]- 0784 Jul, [facility] [place] [facility] [address] [id number] [place] [address]- 2446 Jul, [facility] [place] [facility] [address] [id number] [place] [address]- 0096 Jul, [facility] [place] [facility] [address] [id number] [place] [address]- 7675 Jul, [facility] [place] [facility] [address] [id number] [place] [address]- 2427 Jun, [facility] [place] [facility] [address] [id number] [place] [address]- 9149 Jun, [facility] [place] [facility] [address] [id number] [place] [address]- 5073 Jun, [facility] [place] [facility] [address] [id number] [place] [address]- 7970 Jun, [facility] [place] [facility] [address] [id number] [place] [address]- 6631 May, [facility] [place] [facility] [address] [id number] [place] [address]- 2272 May, [facility] [place] [facility] [address] [id number] [place] [address]- 5848 Apr, [facility] [place] [facility] [address] [id number] [place] [address]- 2096 Apr, [facility] [place] [facility] [address] [id number] [place] [address]- 6115 Mar, [facility] [place] [facility] [address] [id number] [place] [address]- 8208 Mar, [facility] [place] [facility] [address] [id number] [place] [address]- 9105 18 Mar, 2013 [facility] [place] [facility] [address] [id number] [place] [address]- 8393 Mar, [facility] [place] [facility] [address] [id number] [place] [address]- 3456 Mar, [facility] [place] [facility] [address] [id number] [place] 18 Mar, 2013 [facility] [place] [facility] [address] [id number] [place] [address]- 7181 Feb, [facility] [place] [facility] [address] [id number] [place] [address]- 0374 Feb, [facility] [place] [facility] [address] [id number] [place] [address]- 7383 Feb, [facility] [place] [facility] [address] [id number] [place] [address]- 9656 Feb, [facility] [place] [facility] [address] [id number] [place] [address]- 5656 Feb, [facility] [place] [facility] [address] [id number] [place] [address]- 7008 Feb, [facility] [place] [facility] [address] [id number] [place] [address]- 1904 Feb, [facility] [place] [facility] [address] [id number] [place] [address]- 6481 Feb, [facility] [place] [facility] [address] [id number] [place] [address]- 3741 15 Jan, 2013 [facility] [place] [facility] [address] [id number] [place] [address]- 2663 15 Jan, 2013 [facility] [place] [facility] [address] [id number] [place] [address]- 9301 14 Jan, 2013 [facility] [place] [facility] [address] [id number] [place] [address]- 2278 14 Jan, 2013 [facility] [place] [facility] [address] [id number] [place] [address]- 7494 18 Dec, 2012 [facility] [place] [facility] [address] [id number] [place] [address]- 3929 13 Dec, 2012 [facility] [place] [facility] [address] [id number] [place] [address]- 8937 2012 [facility] [place] [facility] [address] [id number] [place] [address]- 0176 Nov, [facility] [place] [facility] [address] [id number] [place] [address]- 1057 Nov, [facility] [place] [facility] [address] [id number] [place] [address]- 6715 Oct, [facility] [place] [facility] [address] [id number] [place] [address]- 1794 Oct, [facility] [place] [facility] [address] [id number] [place] [address]- 7341 Oct, [facility] [place] [facility] [address] [id number] [place] [address]- 3189 Sep, [facility] [place] [facility] [address] [id number] [place] [address]- 1132 Sep, [facility] [place] [facility] [address] [id number] [place] [address]- 1101 Sep, [facility] [place] [facility] [address] [id number] [place] [address]- 8839 Sep, [facility] [place] [facility] [address] [id number] [place] [address]- 4944 Sep, [facility] [place] [facility] [address] [id number] [place] [address]- 4470 Sep, [facility] [place] [facility] [address] [id number] [place] [address]- 9314 August, [facility] [place] [facility] [address] [id number] [place] [address]- 8966 August, [facility] [place] [facility] [address] [id number] [place] [address]- 5668 August, [facility] [place] [facility] [address] [id number] [place] [address]- 4944 August, [facility] [place] [facility] [address] [id number] [place] [address]- 2598 August, [facility] [place] [facility] [address] [id number] [place] [address]- 9661 August, [facility] [address] [id number] [place] [address] August, [facility] [address] [id number] [place] [address]- 2274 Jul, [facility] [address] [id number] [place] [address]- 9335 Jul, [facility] [address] [id number] [place] [address]- 9995 Jun, [facility] [address] [id number] [place] [address]- 0257 Jun, [facility] [address] [id number] [place] [address]- 6265 May, [facility] [address] [id number] [place] [address]- 7214 May, [facility] [address] [id number] [place] [address]- 9814 Apr, [facility] [address] [id number] [place] [address]- 0461 Mar, [facility] [place] [facility] [address] [id number] [place] [address]- 3426 Mar, [facility] [address] [id number] [place] [address]- 3798 Mar, [facility] [place] [facility] [address] [id number] [place] [address]- 0283 Mar, [facility] [place] [facility] [address] [id number] [place] [address]- 9806 Mar, [facility] [place] [facility] [address] [facility] [id number] [place] [address]- 0817 Mar, [facility] [place] [facility] [address] [facility] [id number] [place] [address]- 0139 Feb, [facility] [place] [facility] [address] [id number] [place] [address]- 3079 Feb, [facility] [place] [facility] [address] [id number] [place] [address]- 8825 Feb, [facility] [place] [facility] [address] [id number] [place] [address]- 4436 Feb, [facility] [address] [id number] [place] [address]- 5721 Feb, [facility] [place] [facility] [address] [id number] [place] [address]- 7876 Feb, [facility] [place] [facility] [address] [id number] [place] [address], [place] [address]- 0803 Feb, [facility] [place] [facility] [address] [id number] [place] [address]- 1509 Feb, [facility] [place] [facility] [address] [facility] [id number] [place] [address]- 7050 Jan, [facility] [place] [facility] [address] [id number] [place] [address]- 5510 Jan, [facility] [place] [facility] [address] [id number] [address]- 4959 28 Dec, 2011 [facility] [place] [facility] [address] [facility] [id number] [place] [address]- 1330 Dec, [facility] [place] [facility] [address] [facility] [id number] [place] [address] 254 18 Dec, 2011 [facility] [place] [facility] [address] [id number] [place] [address]- 2547 18 Dec, 2011 [facility] [place] [facility] [address] [facility] [id number] [place] [address]- 1866 Dec, [facility] [place] [facility] [address] [facility] [id number] [place] [address]- 8158 Nov, [facility] [place] [facility] [address] [facility] [id number] [place] [address]- 9535 Oct, [facility] [place] [facility] [address] [id number] [place] [address]- 0421 Oct, [facility] [place] [facility] [address] [id number] [place] [address]- 2860 Sep, [facility] [place] [facility] [address] [id number] [place] [address]- 0177 Sep, [facility] [place] [facility] [address] [id number] [place] [address]- 4682 Sep, [facility] [place] [facility] [address] [id number] [place] [address]- 7386 Sep, [facility] [place] [facility] [address] [id number] [place] [address]- 2821 Sep, [facility] [place] [facility] [address] [id number] [place] [address]- 9830 Sep, [facility] [place] [facility] [address] [id number] [place] [address]- 4270 Sep, [facility] [place] [facility] [address] [id number] [place] [address]- 6046 Sep, [facility] [place] [facility] [address] [id number] [place] [address]- 6171 August, [facility] [place] [facility] [address] [id number] [place] [address]- 2487 August, [facility] [place] [facility] [address] [id number] [place] [address]- 0682 August, [facility] [place] [facility] [address] [id number] [place] [address]- 2980 Jul, [facility] [place] [facility] [address] [id number] [place] [address]- 8100 Jul, [facility] [place] [facility] [address] [id number] [place] [address]- 2332 Jun, [facility] [place] [facility] [address] [id number] [place] [address]- 1467 Jun, [facility] [address] [id number] [place] [address]- 2684 Jun, [facility] [place] [facility] [address] [id number] [place] [address]- 3814 Jun, [facility] [address] [id number] [place] [address]- 7246 May, [facility] [place] [facility] [address] [id number] [place] [address]- 6830 May, [facility] [address] [id number] [place] [address]- 7093 Apr, [facility] [place] [facility] [address] [id number] [place] [address]- 4213 Apr, [facility] [address] [facility] [id number] [place] [address]- 8503 Apr, [facility] [address] [id number] [place] [address]- 0042 Mar, [facility] [address] [facility] [id number] [place] [address]- 1726 Mar, [facility] [place] [facility] [address] [facility] [id number] [place] [address]- 1350 Mar, [facility] [address] [id number] [place] [address]- 8004 Feb, [facility] [place] [facility] [address] [id number] [place] [address]- 4124 Feb, [facility] [place] [facility] [address] [id number] [place] [address]- 2847 Feb, [facility] [place] [facility] [address] [facility] [id number] [place] [address]- 6391 Feb, [facility] [place] [facility] [address] [facility] [id number] [place] [address]- 0977 Jan, [facility] [place] [facility] [address] [id number] [place] [address]- 4003 14 Jan, 2011 [facility] [place] [facility] [address] [id number] [place] [address]- 6120 12 Jan, 2011 [facility] [place] [facility] [address] [id number] [place] [address] 2543 16 Dec, 2010 [facility] [place] [facility] [address] [id number] [place] [address]- 4703 13 Oct, 2010 [facility] [place] [facility] [address] [id number] [place] [address]- 3720 24 Mar, 2010 [facility] [place] [facility] [address] [id number] [place] [address]- 2938 Feb, [facility] [place] [facility] [address] [id number] [place] [address]- 2264 Feb, [facility] [place] [facility] [address] [id number] [place] [address]- 0038 16 May, 2009 [facility] [place] [facility] [address] [id number] [place] [address]- 9963 Apr, [facility] [place] [facility] [address] [id number] [place] [address]- 0936 29 Mar, 2009 [facility] [place] [facility] [address] [id number] [place] [address]- 4159 30 Jan, 2009 [facility] [place] [facility] [address] [id number] [place] [address]- 7719 15 Oct, 2008 [facility] [place] [facility] [address] [id number] [place] [address]- 4100 16 Jul, 2008 [facility] [place] [facility] [address] [id number] [place] [address]- 8291 04 Mar, 2008 [facility] [place] [facility] [address] [id number] [place] [address]- 0925 Feb, [facility] [place] [facility] [address] [id number] [place] [address]- 0244 Jan, IMMUNIZATIONS No Known Immunizations SOCIAL HISTORY Never Assessed REASON FOR VISIT medication refill PLAN OF CARE VITAL SIGNS MEDICATIONS Medication Instructions Dosage Frequency Start Date End Date Duration Status Mupirocin 2 % 1 application to affected area 12h Active RESULTS No Results PROCEDURES No Known [...]
--- OUTSIDE RECORDS SUMMARY | 2018-07-05 12:22 | XMS REPORT ---
Author Author KATHYA FISCHER [facility] Address [address] [place] [address] Care Team Providers Care [place] [employer] Name Role Phone KATHYA FISCHER Unavailable PROBLEMS Type Condition ICD9-CM Code NOT35-CS Code Onset Dates Condition Status SNOMED Code Problem Arthritis M19.90 Active 0168824 Problem 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 Active 26497384 Problem Polyneuropathy G62.9 Active 12894174 Problem Other male erectile dysfunction N52.8 Active 552988766 Problem Constipation K59.00 Active 68276248 Problem Type 2 diabetes mellitus with 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 E11.65 Active 225079331 Problem Controlled type 2 diabetes mellitus without complication, without long -term current use of insulin E11.9 Active 418074785 Problem retirement current use of insulin Z79.4 Active 886044631 Problem Neuropathy G62.9 Active 851550583 Problem Obstructive sleep apnea G47.33 Active 25181825 Problem Hypertension, benign I10 Active 69515393 Problem Uncontrolled type 2 diabetes mellitus without complication, without long-term current use of insulin E11.65 Active 945512540 Problem Stress incontinence of urine N39.3 Active 02056751 Problem Fibromyalgia M79.7 Active 482855600 ALLERGIES No Information ENCOUNTERS Encounter Location Date Diagnosis [facility] [id number] [address] Dec, [facility] [id number] [address] 8299 Dec, Renal insufficiency N28.9 [facility] [id number] [place] [address] 30551- 0495 Dec, [facility] [id number] [place] [address] 52004- 3456 Dec, Dizziness R42 [facility] [id number] [place] [address] 36431- 5382 Dec, Dizziness R42 and Encounter for immunization Z23 [facility] [id number] [place] [address] 44610- 6623 Dec, Therapeutic drug monitoring Z51.81 and Controlled type 2 diabetes mellitus without complication, without long-term current use of insulin E11.9 [facility] [id number] [place] [address] 26264- 0986 Dec, [facility] [id number] [place] [address] 31648- 3795 Dec, [facility] [id number] [place] [address] 93829- 9080 Dec, [facility] [id number] [place] [address] 44727- 3749 Nov, [facility] [id number] [place] [address] 81784- 5745 Nov, Therapeutic drug monitoring Z51.81 [facility] [id number] [place] [address] 17562- 1581 Nov, [facility] [id number] [place] [address] 34318- 5556 Nov, Therapeutic drug monitoring Z51.81 ; Fibromyalgia M79.7 and Controlled type 2 diabetes mellitus without complication, without long-term current use of insulin E11.9 [facility] [id number] [place] [address] 02878- 3620 Nov, Type 2 diabetes mellitus with 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 E11.65 [facility] [id number] [place] [address] 64185- 3375 Nov, [facility] [id number] [place] [address] 18979- 3489 Nov, [facility] [id number] [place] [address] 09711- 4497 Nov, Type 2 diabetes mellitus with 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 E11.65 [facility] [id number] [address] 0050 Nov, [facility] [id number] [place] [address] 76165- 8326 Nov, [facility] [address] [address]- 6396 Nov, Constipation K59.00 [facility] [id number] [place] [address] 14377- 2855 Oct, Diabetes type 2, controlled E11.9 [facility] [id number] [place] [address] 43375- 9530 Oct, Type 2 diabetes mellitus with 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 E11.65 ; retirement current use of insulin Z79.4 and Neuropathy G62.9 [facility] [address] [address]- 2532 Oct, [facility] [id number] [place] [address] 71853- 7493 Oct, [facility] [address] [address]- 3356 Oct, [facility] [id number] [place] [address] 22498- 8023 Oct, [facility] [id number] [address]- 7258 Oct, [facility] [id number] [address]- 6375 Oct, [facility] [address] [address]- 9714 Oct, [facility] [id number] [address]- 9010 Sep, [facility] [address] [address]- 4456 Sep, Uncontrolled type 2 diabetes mellitus without complication, without long-term current use of insulin E11.65 [facility] [address] [address]- 0710 Sep, Hypertension, benign I10 ; Fibromyalgia M79.7 ; Controlled type 2 diabetes mellitus without complication, without long-term current use of insulin E11.9 and Uncontrolled type 2 diabetes mellitus without complication, without long-term current use of insulin E11.65 [facility] [address] [address]- 2696 Sep, [facility] [id number] [place] [address] 55387 2541 Sep, Uncontrolled type 2 diabetes mellitus without complication, without long-term current use of insulin E11.65 [facility] [id number] [place] [address] 99509- 5266 Sep, [facility] [id number] [place] [address] 57176- 3455 Sep, [facility] [id number] [place] [address] 56578- 0546 Sep, Uncontrolled type 2 diabetes mellitus without complication, without long-term current use of insulin E11.65 and Fibromyalgia M79.7 [facility] [address] [place] [address] 71141- 1163 August, [facility] [address] [address]- 3306 August, [facility] [id number] [address]- 8191 August, [facility] [address] [place] [address] 30777- 2545 August, Fibromyalgia M79.7 [facility] [id number] [place] [address] 88743- 1186 Jul, Hypertension, benign I10 [facility] [address] [address]- 1516 Jul, Fibromyalgia M79.7 [facility] [id number] [address]- 0214 Jul, [facility] [id number] [place] [address] 49782- 1787 Jun, [facility] [id number] [place] [address] 34617- 8872 14 Jun, 2017 Hypertension, benign I10 ; Arthritis M19.90 ; retirement current use 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 Z79.891 and Uncontrolled type 2 diabetes mellitus without complication, without long-term current use of insulin E11.65 [facility] [id number] [place] [address] 92433 -7446 Jun, Acute nasopharyngitis J00 and BMI 50.0-59.9, adult Z68.43 [facility] [id number] [place] [address] 56450- 7320 Jun, Fibromyalgia M79.7 [facility] [id number] [place] [address] 41925- 7278 14 May, 2017 [facility] [id number] [place] [address] 07863- 1278 May, Fibromyalgia M79.7 [facility] [id number] [place] [address] 29914- 3266 Apr, Fibromyalgia M79.7 [facility] [id number] [place] [address] 07931- 7429 Apr, [facility] [id number] [place] [address] 21801- 3419 Apr, [facility] [id number] [place] [address] 27221- 1138 Apr, Arthritis M19.90 [facility] [id number] [place] [address] 51000- 6606 Apr, Arthritis M19.90 [facility] [id number] [place] [address] 02506- 0216 Apr, Arthritis M19.90 and Controlled type 2 diabetes mellitus without complication, without long-term current use of insulin E11.9 [facility] [address] 68954- 7409 Apr, [facility] [address] 86750- 3218 Apr, Fibromyalgia M79.7 [facility] [address] 51201- 4176 Mar, [facility] [address] 89121 2540 Mar, [facility] [address] 49503- 1668 Mar, Fibromyalgia M79.7 [facility] [address] 93795- 2537 Feb, [facility] [address] 57369- 0141 Feb, [facility] [id number] [place] [address] 52804- 2223 Feb, [facility] [address] 12172- 7786 Feb, Fibromyalgia M79.7 [facility] [id number] [place] [address] 10434- 3712 Feb, Diabetes type 2, uncontrolled E11.65 and Encounter for immunization Z23 [facility] [id number] [place] [address] 97691- 3281 Jan, [facility] [address] 89496- 9504 Jan, Fibromyalgia M79.7 [facility] [id number] [place] [address] 66362 2546 Dec, [facility] [address] 06929- 8630 Dec, Fibromyalgia M79.7 [facility] [address] [address]- 8130 Nov, [facility] [address] [place] [address] 18720- 6564 Nov, [facility] [id number] [place] [address] 96964- 1825 Nov, 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 and Polyneuropathy G62.9 [facility] [id number] [place] [address] 20281- 7449 Nov, [facility] [id number] [place] [address] 71147- 2577 Nov, [facility] [id number] [place] [address] 92506- 7245 Oct, Diabetes type 2, uncontrolled E11.65 [facility] [id number] [place] [address] 72125- 6430 Oct, Diabetes type 2, uncontrolled E11.65 ; Polyneuropathy G62.9 and Pain in right wrist M25.531 [facility] [id number] [place] [address] 68002- 4084 Oct, [facility] [address] [place] [address] 79671- 8298 Oct, Pain in left shoulder M25.512 [facility] [id number] [place] [address] 33199- 5297 Sep, [facility] [address] [place] [address] 71655- 3569 Sep, Pain in left shoulder M25.512 [facility] [address] [place] [address] 29269- 4048 Sep, [facility] [address] [address]- 7161 August, Pain in left shoulder M25.512 [facility] [address] [address]- 3441 Jul, [facility] [id number] [place] [address] 64147- 0105 Jul, [facility] [id number] [place] [address] 91113- 1053 Jul, Pain in left shoulder M25.512 [facility] [id number] [place] [address] 57130- 5004 Jun, [facility] [id number] [place] [address] 93059- 2734 Jun, [facility] [id number] [place] [address] 22342- 2984 Jun, Diabetes type 2, uncontrolled E11.65 ; Fibromyalgia M79.7 and Arthritis M19.90 [facility] [id number] [place] [address] 47098- 6835 Jun, Pain in left shoulder M25.512 [facility] [address] [address]- 5060 May, [facility] [id number] [place] [address] 89744- 1682 May, Diabetes type 2, controlled E11.9 [facility] [address] [address]- 5682 May, [facility] [address] [address]- 1605 May, Uncontrolled type 2 diabetes mellitus without complication, without long-term current use of insulin E11.65 [facility] [address] [address]- 5479 May, Pain in left shoulder M25.512 [facility] [address] [address]- 2962 May, Diabetes type 2, controlled E11.9 and Uncontrolled type 2 diabetes mellitus without complication, without long-term current use of insulin E11.65 [facility] [address] [address]- 2247 Apr, [facility] [id number] [place] [address] 91864- 0526 Apr, [facility] [address] [place] [address] 58065- 8299 Mar, [facility] [id number] [place] [address] 61607- 0927 Mar, [facility] [id number] [place] [address] 39104- 5300 Mar, [facility] [id number] [place] [address] 90843- 4597 Feb, [facility] [id number] [place] [address] [id number] Feb, Dental examination Z01.20 [facility] [id number] [place] [address] 55977- 9355 Jan, [facility] [id number] [place] [address] 38110- 1409 Dec, [facility] [address] [address]- 7055 Dec, [facility] [address] [place] [address] 20044- 9133 Dec, [facility] [address] [address]- 2680 Dec, Diabetes type 2, controlled E11.9 [facility] [address] [address]- 4256 Nov, [facility] [address] [address]- 4955 Nov, [facility] [id number] [place] [address] 09026- 2392 Nov, [facility] [address] [facility] [id number] [place] [address]- 7278 Nov, [facility] [address] [facility] [id number] [address]- 5938 Oct, [facility] [id number] [place] [address]- 3263 Oct, [facility] [id number] [address]- 1261 Oct, [facility] [address] [facility] [id number] [place] [address]- 0517 Sep, [facility] [address] [address]- 9285 Sep, Diabetes type 2, controlled E11.9 [facility] [id number] [address]- 6379 Sep, Diabetes type 2, controlled E11.9 [facility] [address] [place] [address]- 6892 August, [facility] [address] [address]- 0621 August, [facility] [address] [address]- 7765 August, Type 2 diabetes mellitus without complication E11.9 and Pain in left shoulder M25.512 [facility] [address] [address]- 2062 Jul, [facility] [address] [address]- 3536 Jul, Diabetes type 2, controlled E11.9 and Hypertension, benign I10 [facility] [address] [facility] [id number] [address]- 7590 Jun, [facility] [address] [address]- 1793 Jun, [facility] [address] [address]- 4591 Jun, Diabetes 250.00 [facility] [id number] [place] [address] 30382- 4109 Jun, [facility] [id number] [place] [address] 33251- 4331 May, Diabetes type 2, uncontrolled E11.65 [facility] [id number] [place] [address] 76090- 7508 May, [facility] [id number] [place] [address] 41030- 1998 Apr, Type 2 diabetes mellitus without complication E11.9 [facility] [id number] [place] [address] 57897- 4740 Apr, Encounter for immunization Z23 [facility] [id number] [place] [address] 30928- 9497 Apr, [facility] [id number] [place] [address] 26284- 6990 Mar, [facility] [id number] [place] [address] 15643- 3893 Mar, [facility] [address] [place] [address] 56251- 7608 Mar, [facility] [address] [place] [address] 28208- 6573 Feb, [facility] [address] [place] [address] 41600- 7319 Jan, [facility] [id number] [place] [address] 07127- 3956 Jan, [facility] [address] [place] [address] 98751- 6484 Jan, [facility] [id number] [place] [address] 31366- 2075 Dec, Diabetes 250.00 and COPD (chronic obstructive pulmonary disease) 496 [facility] [id number] [place] [address] 18806- 5967 Dec, [facility] [id number] [place] [address] 36431- 7218 Dec, [facility] [id number] [place] [address] 31730- 9980 Nov, [facility] [id number] [place] [address] 92810- 2852 Oct, Diabetes 250.00 [facility] [id number] [place] [address] 08115- 7464 Sep, [facility] [id number] [place] [address] 51107- 7230 Sep, [facility] [id number] [place] [address] 02623- 6232 Sep, [facility] [id number] [place] [address] 30028- 5724 Sep, Diabetes 250.00 [facility] [id number] [place] [address] 74379- 7480 Sep, [facility] [address] [place] [address] 83740- 5953 Sep, [facility] [id number] [place] [address] 48420- 6725 August, Hypertension, essential, benign 401.1 ; Coronary atherosclerosis of [place] coronary artery 414.01 and Diabetic neuropathy associated with type 2 diabetes mellitus 250.60 [facility] [address] [address]- 8623 Jul, [facility] [address] [address]- 8542 Jul, [facility] [id number] [place] [address] [place] [address]- 4836 Jul, [facility] [place] [facility] [address] [id number] [place] [address]- 0719 Jun, [facility] [place] [facility] [address] [id number] [place] [address]- 6183 Jun, [facility] [place] [facility] [address] [id number] [place] [address]- 2206 Jun, [facility] [place] [facility] [address] [id number] [place] [address]- 4018 Jun, [facility] [place] [facility] [address] [id number] [place] [address]- 2814 Jun, [facility] [place] [facility] [address] [id number] [place] [address]- 5859 May, [facility] [place] [facility] [address] [id number] [place] [address]- 1278 May, [facility] [place] [facility] [address] [id number] [place] [address]- 2259 May, [facility] [place] [facility] [address] [id number] [place] [address]- 8761 May, [facility] [place] [facility] [address] [facility] [id number] [place] [address]- 0812 May, [facility] [place] [facility] [address] [id number] [place] [address]- 1141 May, [facility] [place] [facility] [address] [id number] [place] [address]- 2541 May, [facility] [place] [facility] [address] [id number] [place] [address]- 4727 Apr, [facility] [place] [facility] [address] [id number] [place] [address]- 8106 Apr, [facility] [place] [facility] [address] [id number] [place] 1290 Apr, [facility] [place] [facility] [address] [id number] [place] [address]- 7782 Apr, [facility] [place] [facility] [address] [id number] [place] [address]- 8899 Mar, [facility] [place] [facility] [address] [id number] [place] [address]- 4914 Mar, [facility] [place] [facility] [address] [id number] [place] [address]- 3486 Mar, [facility] [place] [facility] [address] [id number] [place] [address]- 4323 Mar, [facility] [place] [facility] [address] [id number] [place] [address]- 6672 Feb, [facility] [place] [facility] [address] [id number] [place] [address]- 4008 Feb, [facility] [place] [facility] [address] [id number] [place] [address]- 4203 Feb, [facility] [place] [facility] [address] [id number] [place] [address] Feb, [facility] [place] [facility] [address] [id number] [address] Feb, [facility] [place] [facility] [address] [id number] [address] Feb, [facility] [place] [facility] [address] [id number] [address] Feb, [facility] [place] [facility] [address] [id number] [address] Jan, [facility] [place] [facility] [address] [id number] [address] Jan, [facility] [place] [facility] [address] [id number] [address] Dec, [facility] [place] [facility] [address] [id number] [address] 23 Dec, 2013 [facility] [place] [facility] [address] [id number] [place] [address] 10 Dec, 2013 [facility] [place] [facility] [address] [id number] [place] [address] 10 Dec, 2013 [facility] [place] [facility] [address] [id number] [place] [address] 04 Dec, 2013 [facility] [place] [facility] [address] [id number] [place] [address] 04 Dec, 2013 [facility] [place] [facility] [address] [id number] [place] [address] Dec, 2013 [facility] [place] [facility] [address] [id number] [place] [address] Dec, 2013 [facility] [place] [facility] [address] [id number] [place] [address] Nov, [facility] [place] [facility] [address] [id number] [place] [address] Nov, [facility] [place] [facility] [address] [id number] [place] [address] Nov, [facility] [place] [facility] [address] [id number] [place] [address] Nov, [facility] [place] [facility] [address] [id number] [place] [address] Oct, [facility] [place] [facility] [address] [id number] [place] [address] Oct, [facility] [place] [facility] [address] [id number] [place] [address] Oct, [facility] [place] [facility] [address] [id number] [place] [address] Oct, [facility] [place] [facility] [address] [id number] [place] [address] Oct, [facility] [place] [facility] [address] [id number] [place] [address] Oct, [facility] [place] [facility] [address] [id number] [place] [address] Oct, [facility] [place] [facility] [address] [id number] [place] [address] Oct, [facility] [place] [facility] [address] [id number] [place] [address] Sep, [facility] [place] [facility] [address] [id number] [place] [address] Sep, [facility] [place] [facility] [address] [id number] [place] [address] 6587 August, [facility] [place] [facility] [address] [id number] [place] [address] 3573 August, [facility] [place] [facility] [address] [id number] [place] [address] 56[address] Jul, [facility] [place] [facility] [address] [id number] [place] [address] 8772 Jul, [facility] [place] [facility] [address] [id number] [place] [address] 67[address] Jul, [facility] [place] [facility] [address] [id number] [place] [address] 4041 Jul, [facility] [place] [facility] [address] [id number] [place] [address] 1325 Jul, [facility] [place] [facility] [address] [id number] [place] [address]- 4724 Jul, [facility] [place] [facility] [address] [id number] [place] [address] 4304 Jul, [facility] [place] [facility] [address] [id number] [place] [address]- 0282 Jul, [facility] [place] [facility] [address] [id number] [place] [address] 4080 Jun, [facility] [place] [facility] [address] [id number] [place] [address]- 4915 Jun, [facility] [place] [facility] [address] [id number] [place] [address]- 9799 Jun, [facility] [place] [facility] [address] [id number] [place] [address] 1234 Jun, [facility] [place] [facility] [address] [id number] [place] [address] 2612 May, [facility] [place] [facility] [address] [id number] [place] [address]- 0541 May, [facility] [place] [facility] [address] [id number] [place] [address]- 9507 Apr, [facility] [place] [facility] [address] [id number] [place] [address]- 0024 Apr, [facility] [place] [facility] [address] [id number] [place] [address]- 7084 Mar, [facility] [place] [facility] [address] [id number] [place] [address]- 9999 Mar, [facility] [place] [facility] [address] [id number] [place] [address]- 1030 Mar, [facility] [place] [facility] [address] [id number] [place] [address]- 1459 Mar, [facility] [place] [facility] [address] [id number] [place] [address]- 7526 Mar, [facility] [place] [facility] [address] [id number] [place] [address] 7016 Mar, [facility] [place] [facility] [address] [id number] [place] [address] Feb, [facility] [place] [facility] [address] [id number] [place] [address]- 6334 Feb, [facility] [place] [facility] [address] [id number] [place] [address]- 3771 Feb, [facility] [address] [id number] [place] [address]- 6706 Feb, [facility] [place] [facility] [address] [id number] [place] [address]- 0954 Feb, [facility] [address] [id number] [place] [address] 1920 Feb, [facility] [place] [facility] [address] [id number] [place] [address]- 2659 Feb, [facility] [address] [id number] [place] [address]- 0321 Feb, [facility] [place] [facility] [address] [id number] [place] [address]- 4642 15 Jan, 2013 [facility] [address] [id number] [place] [address]- 9976 15 Jan, 2013 [facility] [address] [id number] [place] [address]- 9171 14 Jan, 2013 [facility] [place] [facility] [address] [id number] [place] [address]- 9657 14 Jan, 2013 [facility] [address] [id number] [place] [address]- 4371 18 Dec, 2012 [facility] [place] [facility] [address] [id number] [place] [address]- 4380 13 Dec, 2012 [facility] [place] [facility] [address] [id number] [place] [address]- 1457 2012 [facility] [place] [facility] [address] [id number] [place] [address]- 9836 23 Nov, 2012 [facility] [place] [facility] [address] [id number] [place] [address]- 7715 Nov, [facility] [place] [facility] [address] [id number] [place] [address]- [address] 16 Oct, 2012 [facility] [place] [facility] [address] [id number] [place] [address]- 2254 Oct, [facility] [address] [id number] [place] [address]- 6684 Oct, [facility] [address] [id number] [place] [address]- 1236 Sep, [facility] [place] [facility] [address] [id number] [place] [address]- 8672 Sep, [facility] [address] [id number] [place] [address]- 6509 Sep, [facility] [address] [id number] [place] [address]- 9646 Sep, [facility] [address] [id number] [place] [address]- 7637 Sep, [facility] [address] [id number] [place] [address]- 4545 Sep, [facility] [address] [id number] [place] [address]- 8831 August, [facility] [address] [id number] [place] [address]- 5720 August, [facility] [place] [facility] [address] [id number] [place] [address]- 2406 August, [facility] [place] [facility] [address] [id number] [place] [address]- 3502 August, [facility] [place] [facility] [address] [id number] [place] [address]- 3329 August, [facility] [place] [facility] [address] [id number] [place] [address]- 9988 August, [facility] [place] [facility] [address] [id number] [place] [address]- 5829 August, [facility] [place] [facility] [address] [id number] [address]- 0010 Jul, [facility] [address] [id number] [place] [address]- 0280 Jul, [facility] [address] [id number] [place] [address]- 1857 Jun, [facility] [address] [facility] [id number] [place] [address]- 7352 Jun, [facility] [address] [id number] [place] [address]- 9860 May, [facility] [address] [id number] [place] [address]- 9262 May, [facility] [address] [facility] [id number] [place] [address]- 4007 Apr, [facility] [address] [facility] [id number] [place] [address]- 1219 Mar, [facility] [address] [id number] [place] [address]- 9356 Mar, [facility] [address] [facility] [id number] [place] [address]- 9722 Mar, [facility] [address] [facility] [id number] [place] [address]- 2259 Mar, [facility] [address] [facility] [id number] [place] [address]- 2802 Mar, [facility] [place] [facility] [address] [facility] [id number] [place] [address]- 2540 Mar, [facility] [place] [facility] [address] [id number] [place] [address]- 5235 Feb, [facility] [place] [facility] [address] [facility] [id number] [place] [address]- 4048 Feb, [facility] [place] [facility] [address] [facility] [id number] [place] [address]- 9457 Feb, [facility] [place] [facility] [address] [id number] [place] [address]- 3958 Feb, [facility] [place] [facility] [address] [id number] [place] [address]- 7666 Feb, [facility] [place] [facility] [address] [id number] [place] [address]- 2546 Feb, [facility] [place] [facility] [address] [id number] [place] [address]- 8386 Feb, [facility] [place] [facility] [address] [id number] [place] [address]- 7772 Feb, [facility] [place] [facility] [address] [id number] [place] [address]- 5184 Jan, [facility] [place] [facility] [address] [id number] [place] [address]- 5864 Jan, [facility] [place] [facility] [address] [id number] [place] [address]- 6995 Dec, [facility] [place] [facility] [address] [id number] [place] [address]- 7475 Dec, [facility] [place] [facility] [address] [id number] [place] [address]- 3705 Dec, [facility] [place] [facility] [address] [id number] [place] [address]- 6177 Dec, [facility] [place] [facility] [address] [id number] [place] [address]- 7613 Dec, [facility] [place] [facility] [address] [id number] [place] [address]- 2632 Nov, [facility] [place] [facility] [address] [id number] [place] [address]- 2666 Oct, [facility] [place] [facility] [address] [id number] [place] [address]- 2546 Oct, [facility] [place] [facility] [address] [id number] [place] [address]- 3996 Sep, [facility] [place] [facility] [address] [id number] [place] [address]- 1731 Sep, [facility] [place] [facility] [address] [id number] [place] [address]- 6374 Sep, [facility] [place] [facility] [address] [id number] [place] [address]- 3805 Sep, [facility] [place] [facility] [address] [id number] [place] [address]- 2328 Sep, [facility] [place] [facility] [address] [id number] [place] [address]- 0449 Sep, [facility] [place] [facility] [address] [id number] [place] [address]- 8495 Sep, [facility] [place] [facility] [address] [id number] [place] [address]- 0077 Sep, [facility] [place] [facility] [address] [id number] [place] [address]- 1204 August, [facility] [place] [facility] [address] [id number] [place] [address]- 7941 August, [facility] [place] [facility] [address] [id number] [place] [address]- 8698 August, [facility] [place] [facility] [address] [id number] [place] [address]- 3758 Jul, [facility] [place] [facility] [address] [id number] [address]- 6404 Jul, [facility] [place] [facility] [address] [id number] [place] [address]- 1541 Jun, [facility] [place] [facility] [address] [id number] [place] [address]- 2217 Jun, [facility] [place] [facility] [address] [id number] [place] [address]- 0167 Jun, [facility] [place] [facility] [address] [id number] [place] [address]- 5463 Jun, [facility] [address] [id number] [place] [address]- 3638 May, [facility] [address] [id number] [place] [address]- 0363 May, [facility] [address] [id number] [place] [address]- 8256 Apr, [facility] [address] [id number] [place] [address]- 7634 Apr, [facility] [address] [id number] [place] [address], [place] [address]- 1720 Apr, [facility] [address] [id number] [place] [address]- 2390 Mar, [facility] [address] [id number] [place] [address]- 6331 Mar, [facility] [address] [id number] [place] [address]- 8722 Mar, [facility] [address] [facility] [id number] [place] [address]- 0414 Feb, [facility] [address] [facility] [id number] [place] [address]- 1815 Feb, [facility] [address] [id number] [place] [address]- 0774 Feb, [facility] [address] [id number] [place] [address]- 1578 Feb, [facility] [place] [facility] [address] [id number] [place] [address]- 3205 Jan, [facility] [place] [facility] [address] [id number] [place] [address]- 5250 Jan, [facility] [address] [id number] [place] [address]- 7086 Jan, [facility] [address] [facility] [id number] [address] 2546 16 Dec, 2010 [facility] [address] [facility] [id number] [address] 2546 Oct, [facility] [address] [facility] [id number] [address] 2546 Mar, [facility] [address] [facility] [id number] [address] 2546 Feb, [facility] [address] [facility] [id number] [place] [address] 2549 Feb, [facility] [address] [facility] [id number] [address]- 6936 May, [facility] [address] [id number] [address] 2546 Apr, [facility] [id number] [address]- 1431 Mar, [facility] [id number] [address]- 3256 Jan, [facility] [id number] [address]- 1219 Oct, [facility] [id number] [address] 2546 Jul, [facility] [address] [id number] [address] 2546 Mar, [facility] [address] [id number] [address] 2546 Feb, [facility] [id number] [address] 2546 Jan, IMMUNIZATIONS No Known Immunizations SOCIAL HISTORY Never Assessed REASON FOR VISIT Controlled Med Refill 12/23/17 PLAN OF CARE VITAL SIGNS MEDICATIONS Medication [...]
--- OUTSIDE RECORDS SUMMARY | 2018-07-05 12:23 | XMS REPORT ---
Author Author KATHYA FISCHER [facility] Address [address] [place] [address] Care Team Providers Care Harmonic Analyst Name Role Phone KATHYA FISCHER Unavailable PROBLEMS Type Condition ICD9-CM Code NPE31-PM Code Onset Dates Condition Status SNOMED Code Problem Arthritis M19.90 Active 9713479 Problem 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 Active 21961495 Problem Polyneuropathy G62.9 Active 83357586 Problem Other male erectile dysfunction N52.8 Active 515323921 Problem Constipation K59.00 Active 34669715 Problem Type 2 diabetes mellitus with 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 E11.65 Active 224906765 Problem Controlled type 2 diabetes mellitus without complication, without long -term current use of insulin E11.9 Active 238899168 Problem FDC current use of insulin Z79.4 Active 545894384 Problem Neuropathy G62.9 Active 428978037 Problem Obstructive sleep apnea G47.33 Active 11413306 Problem Hypertension, benign I10 Active 87428680 Problem Uncontrolled type 2 diabetes mellitus without complication, without long-term current use of insulin E11.65 Active 313264947 Problem Stress incontinence of urine N39.3 Active 03378753 Problem Fibromyalgia M79.7 Active 992444290 ALLERGIES No Information ENCOUNTERS Encounter Location Date Diagnosis [facility] [id number], [place] [address] Dec, [facility] [address], [place] [address] 4664 Dec, Renal insufficiency N28.9 [facility] [id number] [place] [address] 56677- 1434 Dec, [facility] [id number] [place] [address] 55818- 7049 Dec, Dizziness R42 [facility] [id number] [place] [address] 95224- 2373 Dec, Dizziness R42 and Encounter for immunization Z23 [facility] [id number] [place] [address] 03217- 6897 Dec, Therapeutic drug monitoring Z51.81 and Controlled type 2 diabetes mellitus without complication, without long-term current use of insulin E11.9 [facility] [id number] [place] [address] 05744- 2669 Dec, [facility] [id number] [place] [address] 80507- 3258 Dec, [facility] [id number] [place] [address] 04175- 5346 Dec, [facility] [id number] [place] [address] 31506- 2041 Nov, [facility] [id number] [place] [address] 96997- 1013 Nov, Therapeutic drug monitoring Z51.81 [facility] [id number] [place] [address] 97345- 4019 Nov, [facility] [id number] [place] [address] 38317- 0592 Nov, Therapeutic drug monitoring Z51.81 ; Fibromyalgia M79.7 and Controlled type 2 diabetes mellitus without complication, without long-term current use of insulin E11.9 [facility] [id number] [place] [address] 19846- 2542 Nov, Type 2 diabetes mellitus with 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 E11.65 [facility] [id number] [place] [address] 75767- 4375 Nov, [facility] [id number] [place] [address] 08527- 8550 Nov, [facility] [id number] [place] [address] 18676- 7152 Nov, Type 2 diabetes mellitus with 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 E11.65 [facility] [id number] [address]- 0513 Nov, [facility] [id number] [place] [address] 48553- 9466 Nov, [facility] [address], [place] [address]- 2861 Nov, Constipation K59.00 [facility] [id number] [place] [address] 44903- 8893 Oct, Diabetes type 2, controlled E11.9 [facility] [id number] [place] [address] 80922- 4840 Oct, Type 2 diabetes mellitus with 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 E11.65 ; FDC current use of insulin Z79.4 and Neuropathy G62.9 [facility] [address], [place] [address]- 6271 Oct, [facility] [id number] [place] [address] 74923- 7869 Oct, [facility] [id number], [place] [address]- 8523 Oct, [facility] [id number] [place] [address] 89002- 5291 Oct, [facility] [address], [place] [address] 1933 Oct, [facility] [address], [place] [address]- 8275 Oct, [facility] [address], [place] [address]- 2280 Oct, [facility] [id number], [place] [address]- 4731 Sep, [facility] [address], [place] [address]- 1004 Sep, Uncontrolled type 2 diabetes mellitus without complication, without long-term current use of insulin E11.65 [facility] [address], [place] [address]- 2332 Sep, Hypertension, benign I10 ; Fibromyalgia M79.7 ; Controlled type 2 diabetes mellitus without complication, without long-term current use of insulin E11.9 and Uncontrolled type 2 diabetes mellitus without complication, without long-term current use of insulin E11.65 [facility] [address], [place] [address]- 6706 Sep, [facility] [id number] [place] [address] 36472 2548 Sep, Uncontrolled type 2 diabetes mellitus without complication, without long-term current use of insulin E11.65 [facility] [id number] [place] [address] 47811- 0836 Sep, [facility] [id number] [place] [address] 10208- 3773 Sep, [facility] [id number] [place] [address] 85394- 7665 Sep, Uncontrolled type 2 diabetes mellitus without complication, without long-term current use of insulin E11.65 and Fibromyalgia M79.7 [facility] [id number] [place] [address] 93953- 5675 August, [facility] [id number] [address]- 6117 August, [facility] [id number] [address]- 3605 August, [facility] [id number] [place] [address] 69737- 2548 August, Fibromyalgia M79.7 [facility] [id number] [place] [address] 95241- 0306 Jul, Hypertension, benign I10 [facility] [address], [place] [address]- 1786 Jul, Fibromyalgia M79.7 [facility] [id number] [address]- 3303 Jul, [facility] [id number] [place] [address] 09100- 2376 Jun, [facility] [id number] [place] [address] 16153- 6094 14 Jun, 2017 Hypertension, benign I10 ; Arthritis M19.90 ; FDC current use 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 Z79.891 and Uncontrolled type 2 diabetes mellitus without complication, without long-term current use of insulin E11.65 [facility] [id number] [place] [address] 67437 -8224 Jun, Acute nasopharyngitis J00 and BMI 50.0-59.9, adult Z68.43 [facility] [id number] [place] [address] 70716- 3936 Jun, Fibromyalgia M79.7 [facility] [id number] [place] [address] 34584- 6778 14 May, 2017 [place] [id number] [place] [address] 89165- 9053 May, Fibromyalgia M79.7 [facility] [id number] [place] [address] 94271- 3231 Apr, Fibromyalgia M79.7 [facility] [id number] [place] [address] 08041- 8731 Apr, [facility] [id number] [place] [address] 33358- 7200 Apr, [facility] [id number] [place] [address] 69782- 4579 Apr, Arthritis M19.90 [facility] [id number] [place] [address] 14645- 7147 Apr, Arthritis M19.90 [facility] [id number] [place] [address] 02956- 4071 Apr, Arthritis M19.90 and Controlled type 2 diabetes mellitus without complication, without long-term current use of insulin E11.9 [facility] [address] 18101- 0851 Apr, [facility] [address] 99319- 6801 Apr, Fibromyalgia M79.7 [facility] [address] 84232- 0576 Mar, [facility] [address] 99814 2547 Mar, [facility] [address] 06789- 4094 Mar, Fibromyalgia M79.7 [facility] [address] 50967- 5119 Feb, [facility] [address] 87916- 4687 Feb, [facility] [id number] [place] [address] 64794- 1104 Feb, [facility] [address] 87870- 7574 Feb, Fibromyalgia M79.7 [facility] [id number] [place] [address] 01532- 1700 Feb, Diabetes type 2, uncontrolled E11.65 and Encounter for immunization Z23 [facility] [id number] [place] [address] 23144- 7204 Jan, [facility] [address] 36943- 0203 Jan, Fibromyalgia M79.7 [facility] [id number] [place] [address] 04077 2546 Dec, [facility] [address] 71645- 5959 Dec, Fibromyalgia M79.7 [facility] [address], [place] [address]- 0654 Nov, [facility] [id number] [place] [address] 96633- 3704 Nov, [facility] [id number] [place] [address] 10131- 5491 Nov, 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 and Polyneuropathy G62.9 [facility] [id number] [place] [address] 75298- 3880 Nov, [facility] [id number] [place] [address] 30271- 9134 Nov, [facility] [id number] [place] [address] 21293- 5384 Oct, Diabetes type 2, uncontrolled E11.65 [facility] [id number] [place] [address] 33099- 9928 Oct, Diabetes type 2, uncontrolled E11.65 ; Polyneuropathy G62.9 and Pain in right wrist M25.531 [facility] [id number] [place] [address] 99077- 4237 Oct, [facility] [id number] [place] [address] 17095- 3150 Oct, Pain in left shoulder M25.512 [facility] [id number] [place] [address] 10536- 7069 Sep, [facility] [id number] [place] [address] 43054- 4270 Sep, Pain in left shoulder M25.512 [facility] [id number] [place] [address] 31715- 3702 Sep, [facility] [address], [place] [address]- 6192 August, Pain in left shoulder M25.512 [facility] [address], [place] [address]- 7462 Jul, [facility] [id number] [place] [address] 39329- 1191 Jul, [facility] [id number] [place] [address] 00297- 8310 Jul, Pain in left shoulder M25.512 [facility] [id number] [place] [address] 20177- 1738 Jun, [facility] [id number] [place] [address] 36516- 3601 Jun, [facility] [id number] [place] [address] 75833- 5839 Jun, Diabetes type 2, uncontrolled E11.65 ; Fibromyalgia M79.7 and Arthritis M19.90 [facility] [id number] [place] [address] 41250- 7023 Jun, Pain in left shoulder M25.512 [facility] [address], [place] [address]- 4148 May, [facility] [id number] [place] [address] 11241- 0129 May, Diabetes type 2, controlled E11.9 [facility] [address], [place] [address]- 6618 May, [facility] [address], [place] [address]- 5838 May, Uncontrolled type 2 diabetes mellitus without complication, without long-term current use of insulin E11.65 [facility] [address], [place] [address]- 6301 May, Pain in left shoulder M25.512 [facility] [address], [place] [address]- 7431 May, Diabetes type 2, controlled E11.9 and Uncontrolled type 2 diabetes mellitus without complication, without long-term current use of insulin E11.65 [facility] [address], [place] [address]- 5381 Apr, [facility] [id number] [place] [address] 85504- 2464 Apr, [facility] [id number] [place] [address] 98116- 2537 Mar, [facility] [id number] [place] [address] 45373- 2229 Mar, [facility] [id number] [place] [address] 43951- 0670 Mar, [facility] [id number] [place] [address] 33736- 3213 Feb, [facility] [id number] [place] [address] [id number] Feb, Dental examination Z01.20 [facility] [id number] [place] [address] 25490- 1451 Jan, [facility] [id number] [place] [address] 29329- 5980 Dec, [facility] [address], [place] [address]- 4630 Dec, [facility] [id number] [place] [address] 20155- 7971 Dec, [facility] [address], [place] [address]- 7278 Dec, Diabetes type 2, controlled E11.9 [facility] [address], [place] [address]- 4845 Nov, [facility] [address], [place] [address]- 6139 Nov, [facility] [id number] [place] [address] 77777- 4929 Nov, [facility] [address] [facility] [id number] [place] [address]- 3706 Nov, [facility] [address] [facility] [id number] [address]- 4277 Oct, [facility] [id number] [address]- 0656 Oct, [facility] [id number] [address]- 5521 Oct, [facility] [address] [facility] [id number] [place] [address]- 9147 Sep, [facility] [id number], [place] [address]- 5132 Sep, Diabetes type 2, controlled E11.9 [facility] [id number] [address]- 2481 Sep, Diabetes type 2, controlled E11.9 [facility] [address] [place] [address]- 4594 August, [facility] [address], [place] [address]- 2288 August, [facility] [address], [place] [address]- 8343 August, Type 2 diabetes mellitus without complication E11.9 and Pain in left shoulder M25.512 [facility] [address], [place] [address]- 7876 Jul, [facility] [address], [place] [address]- 7227 Jul, Diabetes type 2, controlled E11.9 and Hypertension, benign I10 [facility] [address] [facility] [id number] [address]- 4766 Jun, [facility] [address], [place] [address]- 7921 Jun, [facility] [address], [place] [address]- 5168 Jun, Diabetes 250.00 [facility] [id number] [place] [address] 98642- 5871 Jun, [facility] [id number] [place] [address] 42884- 9442 May, Diabetes type 2, uncontrolled E11.65 [facility] [id number] [place] [address] 13320- 1751 May, [facility] [id number] [place] [address] 42917- 7251 Apr, Type 2 diabetes mellitus without complication E11.9 [facility] [id number] [place] [address] 79833- 0802 Apr, Encounter for immunization Z23 [facility] [id number] [place] [address] 99847- 3804 Apr, [facility] [id number] [place] [address] 46302- 8493 Mar, [facility] [id number] [place] [address] 68017- 3912 Mar, [facility] [id number] [place] [address] 74413- 6312 Mar, [facility] [id number] [place] [address] 57803- 0775 Feb, [facility] [id number] [place] [address] 83950- 8625 Jan, [facility] [id number] [place] [address] 18555- 8722 Jan, [facility] [id number] [place] [address] 49431- 2007 Jan, [facility] [id number] [place] [address] 68058- 1141 Dec, Diabetes 250.00 and COPD (chronic obstructive pulmonary disease) 496 [facility] [id number] [place] [address] 05013- 3820 Dec, [facility] [id number] [place] [address] 56384- 3135 Dec, [facility] [id number] [place] [address] 92271- 9310 Nov, [facility] [id number] [place] [address] 48449- 4579 Oct, Diabetes 250.00 [facility] [id number] [place] [address] 79824- 8692 Sep, [facility] [id number] [place] [address] 63543- 9223 Sep, [facility] [id number] [place] [address] 27798- 4843 Sep, [facility] [id number] [place] [address] [id number]- 1783 Sep, Diabetes 250.00 [facility] [id number] [place] [address] 92568- 4260 Sep, [facility] [id number] [place] [address] 05359- 1879 Sep, [facility] [id number] [place] [address] [phone]- 7504 August, Hypertension, essential, benign 401.1 ; Coronary atherosclerosis of [place] coronary artery 414.01 and Diabetic neuropathy associated with type 2 diabetes mellitus 250.60 [facility] [id number] [address] Jul, [facility] [id number] [address] Jul, [facility] [id number] [place] [address] [place] [address]- 5661 Jul, [facility] [place] [facility] [address] [id number] [place] [address] 5338 Jun, [facility] [place] [facility] [address] [id number] [place] [address]- 9344 Jun, [facility] [place] [facility] [address] [id number] [place] [address]- 9756 Jun, [facility] [place] [facility] [address] [id number] [place] [address]- 6140 Jun, [facility] [place] [facility] [address] [id number] [place] [address]- 8120 Jun, [facility] [place] [facility] [address] [id number] [place] [address]- 9241 May, [facility] [place] [facility] [address] [id number] [place] [address]- 7651 May, [facility] [place] [facility] [address] [id number] [place] [address]- 7896 May, [facility] [place] [facility] [address] [id number] [place] [address]- 3648 May, [facility] [place] [facility] [address] [facility] [id number] [place] [address]- 6191 May, [facility] [place] [facility] [address] [id number] [place] [address]- 3986 May, [facility] [place] [facility] [address] [id number] [place] [address]- 2542 May, [facility] [place] [facility] [address] [id number] [place] [address]- 2122 Apr, [facility] [place] [facility] [address] [id number] [place] [address]- 0906 Apr, [facility] [place] [facility] [address] [id number] [place] 7[address] Apr, [facility] [place] [facility] [address] [id number] [place] [address]- 4963 Apr, [facility] [place] [facility] [address] [id number] [place] [address]- 4560 Mar, [facility] [place] [facility] [address] [id number] [place] [address]- 0816 Mar, [facility] [place] [facility] [address] [id number] [place] [address]- 3033 Mar, [facility] [place] [facility] [address] [id number] [place] [address]- 3036 Mar, [facility] [place] [facility] [address] [id number] [place] [address]- 5100 Feb, [facility] [place] [facility] [address] [id number] [place] [address]- 5943 Feb, [facility] [place] [facility] [address] [id number] [place] [address]- 5821 Feb, [facility] [place] [facility] [address] [id number] [place] [address]- 0271 Feb, [facility] [place] [facility] [address] [id number] [address] 3879 Feb, [facility] [place] [facility] [address] [id number], [place] [address] 9708 Feb, [facility] [place] [facility] [address] [id number], [place] [address]- 0146 Feb, [facility] [place] [facility] [address] [id number], [place] [address]- 5325 Jan, [facility] [place] [facility] [address] [id number], [place] [address]- 2819 Jan, [facility] [place] [facility] [address] [id number], [place] [address] 2784 Dec, [facility] [place] [facility] [address] [id number] [address]- 1535 23 Dec, 2013 [facility] [place] [facility] [address] [id number] [place] [address]- 1696 10 Dec, 2013 [facility] [place] [facility] [address] [id number] [place] [address] 10 Dec, 2013 [facility] [place] [facility] [address] [id number] [place] [address] 04 Dec, 2013 [facility] [place] [facility] [address] [id number] [place] [address]- 0451 04 Dec, 2013 [facility] [place] [facility] [address] [id number] [place] [address] 9070 Dec, 2013 [facility] [place] [facility] [address] [id number] [place] [address] 2001 Dec, 2013 [facility] [place] [facility] [address] [id number] [place] [address]157 Nov, [facility] [place] [facility] [address] [id number] [place] [address]- 4379 Nov, [facility] [place] [facility] [address] [id number] [place] [address] 8179 Nov, [facility] [place] [facility] [address] [id number] [place] [address]- 9809 Nov, [facility] [place] [facility] [address] [id number] [place] [address]- 3376 Oct, [facility] [place] [facility] [address] [id number] [place] [address]- 2856 Oct, [facility] [place] [facility] [address] [id number] [place] [address]- 6737 Oct, [facility] [place] [facility] [address] [id number] [place] [address]- 4007 Oct, [facility] [place] [facility] [address] [id number] [place] [address]- 6444 Oct, [facility] [place] [facility] [address] [id number] [place] [address]- 9990 Oct, [facility] [place] [facility] [address] [id number] [place] [address]- 2835 Oct, [facility] [place] [facility] [address] [id number] [place] [address]- 1260 Oct, [facility] [place] [facility] [address] [id number] [place] [address]- 2679 Sep, [facility] [place] [facility] [address] [id number] [place] [address]- 3803 Sep, [facility] [place] [facility] [address] [id number] [place] [address]- 0225 August, [facility] [place] [facility] [address] [id number] [place] [address]- 2787 August, [facility] [place] [facility] [address] [id number] [place] [address]- 5128 Jul, [facility] [place] [facility] [address] [id number] [place] [address]- 8612 Jul, [facility] [place] [facility] [address] [id number] [place] [address]- 1322 Jul, [facility] [place] [facility] [address] [id number] [place] [address]- 3931 Jul, [facility] [place] [facility] [address] [id number] [place] [address]- 5521 Jul, [facility] [place] [facility] [address] [id number] [place] [address]- 5360 Jul, [facility] [place] [facility] [address] [id number] [place] [address]- 7053 Jul, [facility] [place] [facility] [address] [id number] [place] [address]- 9136 Jul, [facility] [place] [facility] [address] [id number] [place] [address]- 1794 Jun, [facility] [place] [facility] [address] [id number] [place] [address]- 5827 Jun, [facility] [place] [facility] [address] [id number] [place] [address]- 0547 Jun, [facility] [place] [facility] [address] [id number] [place] [address]- 3611 Jun, [facility] [place] [facility] [address] [id number] [place] [address]- 0859 May, [facility] [place] [facility] [address] [id number] [place] [address]- 2351 May, [facility] [place] [facility] [address] [id number] [place] [address]- 1763 Apr, [facility] [place] [facility] [address] [id number] [place] [address]- 9486 Apr, [facility] [place] [facility] [address] [id number] [place] [address]- 6671 Mar, [facility] [place] [facility] [address] [id number] [place] [address]- 8157 Mar, [facility] [place] [facility] [address] [id number] [place] [address]- 8234 Mar, [facility] [place] [facility] [address] [id number] [place] [address]- 9756 Mar, [facility] [place] [facility] [address] [id number] [place] [address]- 2026 Mar, [facility] [place] [facility] [address] [id number] [place] [address]- 2441 Mar, [facility] [place] [facility] [address] [id number] [place] [address] Feb, [facility] [place] [facility] [address] [id number] [place] [address]- 5005 Feb, [facility] [place] [facility] [address] [id number] [place] [address]- 6174 Feb, [facility] [address] [id number] [place] [address]- 4875 Feb, [facility] [place] [facility] [address] [id number] [place] [address]- 4389 Feb, [facility] [address] [id number] [place] [address]- 6562 Feb, [facility] [place] [facility] [address] [id number] [place] [address]- 3114 Feb, [facility] [address] [id number] [place] [address]- 2541 Feb, [facility] [place] [facility] [address] [id number] [place] [address]- 6773 15 Jan, 2013 [facility] [address] [id number] [place] [address]- 1621 15 Jan, 2013 [facility] [address] [id number] [place] [address]- 0240 14 Jan, 2013 [facility] [place] [facility] [address] [id number] [place] [address]- 8771 14 Jan, 2013 [facility] [address] [id number] [place] [address]- 8192 18 Dec, 2012 [facility] [place] [facility] [address] [id number] [place] [address]- 2781 13 Dec, 2012 [facility] [place] [facility] [address] [id number] [place] [address]- 5820 2012 [facility] [place] [facility] [address] [id number] [place] [address]- 6980 23 Nov, 2012 [facility] [place] [facility] [address] [id number] [place] [address]- 5337 Nov, [facility] [place] [facility] [address] [id number] [place] [address]- 9644 16 Oct, 2012 [facility] [place] [facility] [address] [id number] [place] [address]- 0437 Oct, [facility] [address] [id number] [place] [address]- 7891 Oct, [facility] [address] [id number] [place] [address]- 8227 Sep, [facility] [place] [facility] [address] [id number] [place] [address]- 8080 Sep, [facility] [address] [id number] [place] [address]- 7515 Sep, [facility] [address] [id number] [place] [address]- 9164 Sep, [facility] [address] [id number] [place] [address]- 4905 Sep, [facility] [address] [id number] [place] [address]- 5182 Sep, [facility] [address] [id number] [place] [address]- 8094 August, [facility] [address] [id number] [place] [address]- 6414 August, [facility] [place] [facility] [address] [id number] [place] [address]- 1639 August, [facility] [place] [facility] [address] [id number] [place] [address]- 0543 August, [facility] [place] [facility] [address] [id number] [place] [address]- 6714 August, [facility] [place] [facility] [address] [id number] [place] [address]- 3567 August, [facility] [place] [facility] [address] [id number] [place] [address]- 9207 August, [facility] [place] [facility] [address] [id number] [address] 8407 Jul, [facility] [address] [id number] [place] [address]- 2677 Jul, [facility] [address] [id number] [place] [address]- 4526 Jun, [facility] [address] [facility] [id number] [place] [address]- 9807 Jun, [facility] [address] [id number] [place] [address]- 0655 May, [facility] [address] [id number] [place] [address]- 5228 May, [facility] [address] [facility] [id number] [place] [address]- 7287 Apr, [facility] [address] [facility] [id number] [place] [address]- 9378 Mar, [facility] [address] [id number] [place] [address]- 3504 Mar, [facility] [address] [facility] [id number] [place] [address]- 5732 Mar, [facility] [address] [facility] [id number] [place] [address]- 9778 Mar, [facility] [address] [facility] [id number] [place] [address]- 7840 Mar, [facility] [place] [facility] [address] [facility] [id number] [place] [address]- 2544 Mar, [facility] [place] [facility] [address] [id number] [place] [address]- 5808 Feb, [facility] [place] [facility] [address] [facility] [id number] [place] [address]- 5027 Feb, [facility] [place] [facility] [address] [facility] [id number] [place] [address]- 3450 Feb, [facility] [place] [facility] [address] [id number] [place] [address]- 6847 Feb, [facility] [place] [facility] [address] [id number] [place] [address]- 7746 Feb, [facility] [place] [facility] [address] [id number] [place] [address]- 2546 Feb, [facility] [place] [facility] [address] [id number] [place] [address]- 7576 Feb, [facility] [place] [facility] [address] [id number] [place] [address]- 7073 Feb, [facility] [place] [facility] [address] [id number] [place] [address]- 0223 Jan, [facility] [place] [facility] [address] [id number] [place] [address]- 6302 Jan, [facility] [place] [facility] [address] [id number] [place] [address]- 8615 Dec, [facility] [place] [facility] [address] [id number] [place] [address]- 6164 Dec, [facility] [place] [facility] [address] [id number] [place] [address]- 8343 Dec, [facility] [place] [facility] [address] [id number] [place] [address]- 5562 Dec, [facility] [place] [facility] [address] [id number] [place] [address]- 0485 Dec, [facility] [place] [facility] [address] [id number] [place] [address]- 3305 Nov, [facility] [place] [facility] [address] [id number] [place] [address]- 9946 Oct, [facility] [place] [facility] [address] [id number] [place] [address]- 2546 Oct, [facility] [place] [facility] [address] [id number] [place] [address]- 4739 Sep, [facility] [place] [facility] [address] [id number] [place] [address]- 0709 Sep, [facility] [place] [facility] [address] [id number] [place] [address]- 7434 Sep, [facility] [place] [facility] [address] [id number] [place] [address]- 3443 Sep, [facility] [place] [facility] [address] [id number] [place] [address]- 4964 Sep, [facility] [place] [facility] [address] [id number] [place] [address]- 3757 Sep, [facility] [place] [facility] [address] [id number] [place] [address]- 5232 Sep, [facility] [place] [facility] [address] [id number] [place] [address]- 3071 Sep, [facility] [place] [facility] [address] [id number] [place] [address]- 2183 August, [facility] [place] [facility] [address] [id number] [place] [address]- 5984 August, [facility] [place] [facility] [address] [id number] [place] [address]- 7358 August, [facility] [place] [facility] [address] [id number] [place] [address]- 7402 Jul, [facility] [place] [facility] [address] [id number] [address]- 9164 Jul, [facility] [place] [facility] [address] [id number] [place] [address]- 9227 Jun, [facility] [place] [facility] [address] [id number] [place] [address]- 7249 Jun, [facility] [place] [facility] [address] [id number] [place] [address]- 7456 Jun, [facility] [place] [facility] [address] [id number] [place] [address]- 3025 Jun, [facility] [address] [id number] [place] [address]- 2597 May, [facility] [address] [id number] [place] [address]- 3523 May, [facility] [address] [id number] [place] [address]- 1923 Apr, [facility] [address] [id number] [place] [address]- 1065 Apr, [facility] [address] [id number] [place] [address], [place] [address]- 1909 Apr, [facility] [address] [id number] [place] [address]- 5494 Mar, [facility] [address] [id number] [place] [address]- 2638 Mar, [facility] [address] [id number] [place] [address]- 1861 Mar, [facility] [address] [facility] [id number] [place] [address]- 9805 Feb, [facility] [address] [facility] [id number] [place] [address]- 3280 Feb, [facility] [address] [id number] [place] [address]- 4012 Feb, [facility] [address] [id number] [place] [address]- 0839 Feb, [facility] [place] [facility] [address] [id number] [place] [address]- 3430 Jan, [facility] [place] [facility] [address] [id number] [place] [address]- 4043 Jan, [facility] [address] [id number] [place] [address]- 1894 Jan, [facility] [address] [id number] [address]167 16 Dec, 2010 [facility] [id number], [place] [address]- 4916 Oct, [facility] [id number], [place] [address]- 6209 Mar, [facility] [id number], [place] [address]- 9424 Feb, [facility] [address] [facility] [id number], [place] [address]- 5495 Feb, [facility] [id number], [place] [address]- 3604 May, [facility] [id number], [place] [address]- 7352 Apr, [facility] [id number], [place] [address]- 4808 Mar, [facility] [id number], [place] [address]- 0922 Jan, [facility] [id number], [place] [address]- 2909 Oct, [facility] [address] [id number], [place] [address]- 1984 Jul, [facility] [address] [id number], [place] [address]- 0692 Mar, [facility] [address] [id number], [place] [address]- 6535 Feb, [facility] [id number], [place] [address]- 8590 Jan, IMMUNIZATIONS No Known Immunizations SOCIAL HISTORY [...]
--- OUTSIDE RECORDS SUMMARY | 2018-07-05 12:23 | XMS REPORT ---
Author Author KATHYA FISCHER [facility] Address [address] [place] [address] Care Team Providers Care Bottom Presser Name Role Phone KATHYA FISCHER Unavailable PROBLEMS Type Condition ICD9-CM Code [id number] Code Onset Dates Condition Status SNOMED Code Problem Arthritis M19.90 Active 7725481 Problem 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 Active 27921080 Problem Polyneuropathy G62.9 Active 70583676 Problem Other male erectile dysfunction N52.8 Active 647769734 Problem Constipation K59.00 Active 88530587 Problem Type 2 diabetes mellitus with 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 E11.65 Active 404866694 Problem Controlled type 2 diabetes mellitus without complication, without long -term current use of insulin E11.9 Active 246573446 Problem residential current use of insulin Z79.4 Active 741900141 Problem Neuropathy G62.9 Active 673465251 Problem Obstructive sleep apnea G47.33 Active 63296445 Problem Hypertension, benign I10 Active 16210265 Problem Uncontrolled type 2 diabetes mellitus without complication, without long-term current use of insulin E11.65 Active 797077082 Problem Stress incontinence of urine N39.3 Active 88216111 Problem Fibromyalgia M79.7 Active 243620894 ALLERGIES No Information ENCOUNTERS Encounter Location Date Diagnosis [facility] [address] [address] Dec, [facility] [address], [place] [address] 8581 Dec, Renal insufficiency N28.9 [facility] [id number] [place] [address] 54937- 4429 Dec, [facility] [id number] [place] [address] 09580- 2722 Dec, Dizziness R42 [facility] [id number] [place] [address] 59319- 0958 Dec, Dizziness R42 and Encounter for immunization Z23 [facility] [id number] [place] [address] 54019- 4328 Dec, Therapeutic drug monitoring Z51.81 and Controlled type 2 diabetes mellitus without complication, without long-term current use of insulin E11.9 [facility] [id number] [place] [address] 31424- 2053 Dec, [facility] [id number] [place] [address] 33146- 0230 Dec, [facility] [id number] [place] [address] 98898- 3377 Dec, [facility] [id number] [place] [address] 68219- 9525 Nov, [facility] [id number] [place] [address] 93557- 6130 Nov, Therapeutic drug monitoring Z51.81 [facility] [id number] [place] [address] 21322- 5166 Nov, [facility] [id number] [place] [address] 64189- 8193 Nov, Therapeutic drug monitoring Z51.81 ; Fibromyalgia M79.7 and Controlled type 2 diabetes mellitus without complication, without long-term current use of insulin E11.9 [facility] [id number] [place] [address] 80632- 5326 Nov, Type 2 diabetes mellitus with 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 E11.65 [facility] [id number] [place] [address] 86086- 1733 Nov, [facility] [id number] [place] [address] 74711- 0325 Nov, [facility] [id number] [place] [address] 93011- 2187 Nov, Type 2 diabetes mellitus with 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 E11.65 [facility] [id number] [address]- 0138 Nov, [facility] [id number] [place] [address] 50635- 4506 Nov, [facility] [address], [place] [address]- 9861 Nov, Constipation K59.00 [facility] [id number] [place] [address] 41657- 2983 Oct, Diabetes type 2, controlled E11.9 [facility] [id number] [place] [address] 95312- 0838 Oct, Type 2 diabetes mellitus with 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 E11.65 ; residential current use of insulin Z79.4 and Neuropathy G62.9 [facility] [address], [place] [address]- 7679 Oct, [facility] [id number] [place] [address] 69887- 4523 Oct, [facility] [address], [place] [address]- 4462 Oct, [facility] [id number] [place] [address] 31010- 3833 Oct, [facility] [address], [place] [address]- 5514 Oct, [facility] [address], [place] [address]- 4407 Oct, [facility] [address], [place] [address]- 6903 Oct, [facility] [address], [place] [address]- 4387 Sep, [facility] [address], [place] [address]- 4861 Sep, Uncontrolled type 2 diabetes mellitus without complication, without long-term current use of insulin E11.65 [facility] [address], [place] [address] 1968 Sep, Hypertension, benign I10 ; Fibromyalgia M79.7 ; Controlled type 2 diabetes mellitus without complication, without long-term current use of insulin E11.9 and Uncontrolled type 2 diabetes mellitus without complication, without long-term current use of insulin E11.65 [facility] [address], [place] [address]- 1336 Sep, [facility] [id number] [place] [address] 28522 2541 Sep, Uncontrolled type 2 diabetes mellitus without complication, without long-term current use of insulin E11.65 [facility] [id number] [place] [address] 03548- 1546 Sep, [facility] [id number] [place] [address] 27047- 5512 Sep, [facility] [id number] [place] [address] 35367- 0821 Sep, Uncontrolled type 2 diabetes mellitus without complication, without long-term current use of insulin E11.65 and Fibromyalgia M79.7 [facility] [id number] [place] [address] 65434- 9714 August, [facility] [address], [place] [address]- 6885 August, [facility] [id number] [address]- 1848 August, [facility] [id number] [place] [address] 52315- 254 August, Fibromyalgia M79.7 [facility] [id number] [place] [address] 14174- 2436 Jul, Hypertension, benign I10 [facility] [address], [place] [address]- 6626 Jul, Fibromyalgia M79.7 [facility] [address] [address]- 2233 Jul, [facility] [id number] [place] [address] 63228- 5630 Jun, [facility] [id number] [place] [address] 15976- 5368 14 Jun, 2017 Hypertension, benign I10 ; Arthritis M19.90 ; residential current use 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 Z79.891 and Uncontrolled type 2 diabetes mellitus without complication, without long-term current use of insulin E11.65 [facility] [id number] [place] [address] 77767 -9399 Jun, Acute nasopharyngitis J00 and BMI 50.0-59.9, adult Z68.43 [facility] [id number] [place] [address] 74016- 3719 Jun, Fibromyalgia M79.7 [facility] [id number] [place] [address] 59807- 0804 14 May, 2017 [place] [id number] [place] [address] 20734- 7217 May, Fibromyalgia M79.7 [facility] [id number] [place] [address] 11118- 7636 Apr, Fibromyalgia M79.7 [facility] [id number] [place] [address] 61985- 5201 Apr, [facility] [id number] [place] [address] 47337- 7601 Apr, [facility] [id number] [place] [address] 18451- 1809 Apr, Arthritis M19.90 [facility] [id number] [place] [address] 43100- 6917 Apr, Arthritis M19.90 [facility] [id number] [place] [address] 44636- 6466 Apr, Arthritis M19.90 and Controlled type 2 diabetes mellitus without complication, without long-term current use of insulin E11.9 [facility] [address] 42821- 5338 Apr, [facility] [address] 36876- 2320 Apr, Fibromyalgia M79.7 [facility] [address] 04780- 9796 Mar, [facility] [address] 31235 2543 Mar, [facility] [address] 64102- 1956 Mar, Fibromyalgia M79.7 [facility] [address] 58378- 6632 Feb, [facility] [address] 53555- 9925 Feb, [facility] [id number] [place] [address] 92313- 7246 Feb, [facility] [address] 61876- 8880 Feb, Fibromyalgia M79.7 [facility] [id number] [place] [address] 81865- 7252 Feb, Diabetes type 2, uncontrolled E11.65 and Encounter for immunization Z23 [facility] [id number] [place] [address] 77666- 7447 Jan, [facility] [address] 10805- 0357 Jan, Fibromyalgia M79.7 [facility] [id number] [place] [address] 14927 2546 Dec, [facility] [address] 29110- 6060 Dec, Fibromyalgia M79.7 [facility] [address], [place] [address]- 6409 Nov, [facility] [id number] [place] [address] 49602- 2698 Nov, [facility] [id number] [place] [address] 98452- 5982 Nov, 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 and Polyneuropathy G62.9 [facility] [id number] [place] [address] 29185- 8088 Nov, [facility] [id number] [place] [address] 56103- 9704 Nov, [facility] [id number] [place] [address] 42955- 1045 Oct, Diabetes type 2, uncontrolled E11.65 [facility] [id number] [place] [address] 49711- 3397 Oct, Diabetes type 2, uncontrolled E11.65 ; Polyneuropathy G62.9 and Pain in right wrist M25.531 [facility] [id number] [place] [address] 10299- 6288 Oct, [facility] [id number] [place] [address] 03491- 9909 Oct, Pain in left shoulder M25.512 [facility] [id number] [place] [address] 48340- 7192 Sep, [facility] [id number] [place] [address] 36246- 2705 Sep, Pain in left shoulder M25.512 [facility] [id number] [place] [address] 41937- 2376 Sep, [facility] [address], [place] [address]- 5462 August, Pain in left shoulder M25.512 [facility] [address], [place] [address]- 2932 Jul, [facility] [id number] [place] [address] 37418- 3619 Jul, [facility] [id number] [place] [address] 36827- 0405 Jul, Pain in left shoulder M25.512 [facility] [id number] [place] [address] 43956- 7285 Jun, [facility] [id number] [place] [address] 01474- 9783 Jun, [facility] [id number] [place] [address] 32087- 5082 Jun, Diabetes type 2, uncontrolled E11.65 ; Fibromyalgia M79.7 and Arthritis M19.90 [facility] [id number] [place] [address] 86742- 7766 Jun, Pain in left shoulder M25.512 [facility] [address], [place] [address]- 8055 May, [facility] [id number] [place] [address] 49691- 8859 May, Diabetes type 2, controlled E11.9 [facility] [address], [place] [address]- 0710 May, [facility] [address], [place] [address]- 7436 May, Uncontrolled type 2 diabetes mellitus without complication, without long-term current use of insulin E11.65 [facility] [address], [place] [address]- 8296 May, Pain in left shoulder M25.512 [facility] [address], [place] [address]- 8453 May, Diabetes type 2, controlled E11.9 and Uncontrolled type 2 diabetes mellitus without complication, without long-term current use of insulin E11.65 [facility] [address], [place] [address]- 2686 Apr, [facility] [id number] [place] [address] 59978- 0232 Apr, [facility] [id number] [place] [address] 55207- 0102 Mar, [facility] [id number] [place] [address] 71173- 0626 Mar, [facility] [id number] [place] [address] 81611- 0753 Mar, [facility] [id number] [place] [address] 14731- 9611 Feb, [facility] [id number] [place] [address] [id number] Feb, Dental examination Z01.20 [facility] [address] [place] [address] 04733- 0984 Jan, [facility] [id number] [place] [address] 62847- 2690 Dec, [facility] [address], [place] [address]- 6815 Dec, [facility] [id number] [place] [address] 65028- 2006 Dec, [facility] [address], [place] [address]- 7939 Dec, Diabetes type 2, controlled E11.9 [facility] [address], [place] [address]- 4177 Nov, [facility] [address], [place] [address]- 7990 Nov, [facility] [id number] [place] [address] 28847- 2571 Nov, [facility] [address] [facility] [id number] [place] [address]- 6012 Nov, [facility] [address] [facility] [id number] [address]- 5743 Oct, [facility] [id number] [address]- 5214 Oct, [facility] [id number], [place] [address]- 1978 Oct, [facility] [address] [facility] [id number] [place] [address]- 5347 Sep, [facility] [address], [place] [address]- 8374 Sep, Diabetes type 2, controlled E11.9 [facility] [address] [address]- 7186 Sep, Diabetes type 2, controlled E11.9 [facility] [address] [place] [address]- 8896 August, [facility] [address], [place] [address]- 1462 August, [facility] [address], [place] [address]- 6086 August, Type 2 diabetes mellitus without complication E11.9 and Pain in left shoulder M25.512 [facility] [address], [place] [address]- 1637 Jul, [facility] [address], [place] [address]- 7707 Jul, Diabetes type 2, controlled E11.9 and Hypertension, benign I10 [facility] [address] [facility] [id number] [address]- 1646 Jun, [facility] [address], [place] [address]- 8822 Jun, [facility] [address], [place] [address]- 3301 Jun, Diabetes 250.00 [facility] [id number] [place] [address] 98770- 7529 Jun, [facility] [id number] [place] [address] 00459- 1229 May, Diabetes type 2, uncontrolled E11.65 [facility] [id number] [place] [address] 26280- 7243 May, [facility] [id number] [place] [address] 51089- 3655 Apr, Type 2 diabetes mellitus without complication E11.9 [facility] [id number] [place] [address] 27526- 1564 Apr, Encounter for immunization Z23 [facility] [id number] [place] [address] 74302- 2435 Apr, [facility] [id number] [place] [address] 99608- 8435 Mar, [facility] [id number] [place] [address] 30987- 9107 Mar, [facility] [id number] [place] [address] 91366- 7726 Mar, [facility] [id number] [place] [address] 75113- 7284 Feb, [facility] [id number] [place] [address] 15865- 6721 Jan, [facility] [id number] [place] [address] 93125- 9857 Jan, [facility] [id number] [place] [address] 09503- 4656 Jan, [facility] [id number] [place] [address] 81118- 9419 Dec, Diabetes 250.00 and COPD (chronic obstructive pulmonary disease) 496 [facility] [id number] [place] [address] 91818- 6046 Dec, [facility] [id number] [place] [address] 18681- 0597 Dec, [facility] [id number] [place] [address] 98862- 0311 Nov, [facility] [id number] [place] [address] 21931- 6604 Oct, Diabetes 250.00 [facility] [id number] [place] [address] 66918- 7011 Sep, [facility] [id number] [place] [address] 91629- 9733 Sep, [facility] [id number] [place] [address] 30755- 9686 Sep, [facility] [id number] [place] [address] 63632- 6544 Sep, Diabetes 250.00 [facility] [id number] [place] [address] 97047- 2831 Sep, [facility] [id number] [place] [address] 67621- 6175 Sep, [facility] [id number] [place] [address] 70398- 6500 August, Hypertension, essential, benign 401.1 ; Coronary atherosclerosis of [place] coronary artery 414.01 and Diabetic neuropathy associated with type 2 diabetes mellitus 250.60 [facility] [address] [address]- 6949 Jul, [facility] [address], [place] [address]- 5434 Jul, [facility] [id number] [place] [address] [place] [address]- 8747 Jul, [facility] [place] [facility] [address] [id number] [place] [address]- 7145 Jun, [facility] [place] [facility] [address] [id number] [place] [address]- 2284 Jun, [facility] [place] [facility] [address] [id number] [place] [address]- 3286 Jun, [facility] [place] [facility] [address] [id number] [place] [address]- 4012 Jun, [facility] [place] [facility] [address] [id number] [place] [address]- 6472 Jun, [facility] [place] [facility] [address] [id number] [place] [address]- 2297 May, [facility] [place] [facility] [address] [id number] [place] [address]- 6343 May, [facility] [place] [facility] [address] [id number] [place] [address]- 9233 May, [facility] [place] [facility] [address] [id number] [place] [address]- 9610 May, [facility] [place] [facility] [address] [facility] [id number] [place] [address]- 3745 May, [facility] [place] [facility] [address] [id number] [place] [address]- 8160 May, [facility] [place] [facility] [address] [id number] [place] [address]- 254 May, [facility] [place] [facility] [address] [id number] [place] [address]- 0145 Apr, [facility] [place] [facility] [address] [id number] [place] [address]- 7346 Apr, [facility] [place] [facility] [address] [id number] [place] [address] Apr, [facility] [place] [facility] [address] [id number] [place] [address] Apr, [facility] [place] [facility] [address] [id number] [place] [address] Mar, [facility] [place] [facility] [address] [id number] [place] [address] Mar, [facility] [place] [facility] [address] [id number] [place] [address] Mar, [facility] [place] [facility] [address] [id number] [place] [address] Mar, [facility] [place] [facility] [address] [id number] [place] [address] Feb, [facility] [place] [facility] [address] [id number] [place] [address] Feb, [facility] [place] [facility] [address] [id number] [place] [address] Feb, [facility] [place] [facility] [address] [id number] [place] [address] Feb, [facility] [place] [facility] [address] [id number], [place] [address] Feb, [facility] [place] [facility] [address] [id number], [place] [address] Feb, [facility] [place] [facility] [address] [id number], [place] [address] Feb, [facility] [place] [facility] [address] [id number], [place] [address] Jan, [facility] [place] [facility] [address] [id number], [place] [address] Jan, [facility] [place] [facility] [address] [id number], [place] [address] Dec, [facility] [place] [facility] [address] [id number], [place] [address] 23 Dec, 2013 [facility] [place] [facility] [address] [id number] [place] [address] 10 Dec, 2013 [facility] [place] [facility] [address] [id number] [place] [address] 10 Dec, 2013 [facility] [place] [facility] [address] [id number] [place] [address] 04 Dec, 2013 [facility] [place] [facility] [address] [id number] [place] [address] 04 Dec, 2013 [facility] [place] [facility] [address] [id number] [place] [address] Dec, 2013 [facility] [place] [facility] [address] [id number] [place] [address] Dec, 2013 [facility] [place] [facility] [address] [id number] [place] [address] Nov, [facility] [place] [facility] [address] [id number] [place] [address] Nov, [facility] [place] [facility] [address] [id number] [place] [address] Nov, [facility] [place] [facility] [address] [id number] [place] [address] Nov, [facility] [place] [facility] [address] [id number] [place] [address] Oct, [facility] [place] [facility] [address] [id number] [place] [address] Oct, [facility] [place] [facility] [address] [id number] [place] [address] Oct, [facility] [place] [facility] [address] [id number] [place] [address] Oct, [facility] [place] [facility] [address] [id number] [place] [place] [address] Oct, [facility] [place] [facility] [address] [id number] [place] [address] Oct, [facility] [place] [facility] [address] [id number] [place] [address] Oct, [facility] [place] [facility] [address] [id number] [place] [address] Oct, [facility] [place] [facility] [address] [id number] [place] [address] Sep, [facility] [place] [facility] [address] [id number] [place] [address] Sep, [facility] [place] [facility] [address] [id number] [place] [address] August, [facility] [place] [facility] [address] [id number] [place] [address]327 August, [facility] [place] [facility] [address] [id number] [place] [address] 1276 Jul, [facility] [place] [facility] [address] [id number] [place] [address] 59[address] Jul, [facility] [place] [facility] [address] [id number] [place] [address]- 8[address] Jul, [facility] [place] [facility] [address] [id number] [place] [address]- 89[address] Jul, [facility] [place] [facility] [address] [id number] [place] [address]- [address]336 Jul, [facility] [place] [facility] [address] [id number] [place] [address]- [address]31 Jul, [facility] [place] [facility] [address] [id number] [place] [address]- 8960 Jul, [facility] [place] [facility] [address] [id number] [place] [address]- 7959 Jul, [facility] [place] [facility] [address] [id number] [place] [address]- 8212 Jun, [facility] [place] [facility] [address] [id number] [place] [address]- 7170 Jun, [facility] [place] [facility] [address] [id number] [place] [address]- 9684 Jun, [facility] [place] [facility] [address] [id number] [place] [address]- 8284 Jun, [facility] [place] [facility] [address] [id number] [place] [address]- 0863 May, [facility] [place] [facility] [address] [id number] [place] [address]- 6006 May, [facility] [place] [facility] [address] [id number] [place] [address]- 2818 Apr, [facility] [place] [facility] [address] [id number] [place] [address]- 2482 Apr, [facility] [place] [facility] [address] [id number] [place] [address]- 6647 Mar, [facility] [place] [facility] [address] [id number] [place] [address]- 1791 Mar, [facility] [place] [facility] [address] [id number] [place] [address]- 9414 Mar, [facility] [place] [facility] [address] [id number] [place] [address]- 7949 Mar, [facility] [place] [facility] [address] [id number] [place] [address]- 4076 Mar, [facility] [place] [facility] [address] [id number] [place] [address]- 4619 Mar, [facility] [place] [facility] [address] [id number] [place] [address] Feb, [facility] [place] [facility] [address] [id number] [place] [address]- 0206 Feb, [facility] [place] [facility] [address] [id number] [place] [address]- 4748 Feb, [facility] [address] [id number] [place] [address]- 9937 Feb, [facility] [place] [facility] [address] [id number] [place] [address]- 9020 Feb, [facility] [address] [id number] [place] [address]- 0757 Feb, [facility] [place] [facility] [address] [id number] [place] [address]- 4046 Feb, [facility] [address] [id number] [place] [address]- 5433 Feb, [facility] [place] [facility] [address] [id number] [place] [address]- 2619 15 Jan, 2013 [facility] [address] [id number] [place] [address]- 4337 15 Jan, 2013 [facility] [address] [id number] [place] [address]- 3467 14 Jan, 2013 [facility] [place] [facility] [address] [id number] [place] [address]- 6701 14 Jan, 2013 [facility] [address] [id number] [place] [address]- 8200 18 Dec, 2012 [facility] [place] [facility] [address] [id number] [place] [address]- 8269 13 Dec, 2012 [facility] [place] [facility] [address] [id number] [place] [address]- 287[address] 2012 [facility] [place] [facility] [address] [id number] [place] [address]- 7254 23 Nov, 2012 [facility] [place] [facility] [address] [id number] [place] [address]- 1244 Nov, [facility] [place] [facility] [address] [id number] [place] [address]- 2513 16 Oct, 2012 [facility] [place] [facility] [address] [id number] [place] [address]- 7153 Oct, [facility] [address] [id number] [place] [address]- 8621 Oct, [facility] [address] [id number] [place] [address]- 3247 Sep, [facility] [place] [facility] [address] [id number] [place] [address]- 6098 Sep, [facility] [address] [id number] [place] [address]- 8209 Sep, [facility] [address] [id number] [place] [address]- 1840 Sep, [facility] [address] [id number] [place] [address]- 3386 Sep, [facility] [address] [id number] [place] [address]- 6995 Sep, [facility] [address] [id number] [place] [address]- 6133 August, [facility] [address] [id number] [place] [address]- 3126 August, [facility] [place] [facility] [address] [id number] [place] [address]- 5354 August, [facility] [place] [facility] [address] [id number] [place] [address]- 8999 August, [facility] [place] [facility] [address] [id number] [place] [address]- 5609 August, [facility] [place] [facility] [address] [id number] [place] [address]- 0736 August, [facility] [place] [facility] [address] [id number] [place] [address] 8016 August, [facility] [place] [facility] [address] [id number], [place] [address]606 Jul, [facility] [address] [id number] [place] [address]- 3906 Jul, [facility] [address] [id number] [place] [address]- 5682 Jun, [facility] [address] [facility] [id number] [place] [address]- 2422 Jun, [facility] [address] [id number] [place] [address]- 1082 May, [facility] [address] [id number] [place] [address]- 3467 May, [facility] [address] [facility] [id number] [place] [address]- 6800 Apr, [facility] [address] [facility] [id number] [place] [address]- 7950 Mar, [facility] [address] [id number] [place] [address]- 7910 Mar, [facility] [address] [facility] [id number] [place] [address]- 5894 Mar, [facility] [address] [facility] [id number] [place] [address]- 5554 Mar, [facility] [address] [facility] [id number] [place] [address]- 6582 Mar, [facility] [place] [facility] [address] [facility] [id number] [place] [address]- 2542 Mar, [facility] [place] [facility] [address] [id number] [place] [address]- 1833 Feb, [facility] [place] [facility] [address] [facility] [id number] [place] [address]- 8865 Feb, [facility] [place] [facility] [address] [facility] [id number] [place] [address]- 7829 Feb, [facility] [place] [facility] [address] [id number] [place] [address]- 5070 Feb, [facility] [place] [facility] [address] [id number] [place] [address]- 5426 Feb, [facility] [place] [facility] [address] [id number] [place] [address]- 2546 Feb, [facility] [place] [facility] [address] [id number] [place] [address]- 0866 Feb, [facility] [place] [facility] [address] [id number] [place] [address]- 1143 Feb, [facility] [place] [facility] [address] [id number] [place] [address]- 8496 Jan, [facility] [place] [facility] [address] [id number] [place] [address]- 9632 Jan, [facility] [place] [facility] [address] [id number] [place] [address]- 4636 Dec, [facility] [place] [facility] [address] [id number] [place] [address]- 2111 Dec, [facility] [place] [facility] [address] [id number] [place] [address]- 4329 Dec, [facility] [place] [facility] [address] [id number] [place] [address]- 8023 Dec, [facility] [place] [facility] [address] [id number] [place] [address]- 5351 Dec, [facility] [place] [facility] [address] [id number] [place] [address]- 9559 Nov, [facility] [place] [facility] [address] [id number] [place] [address]- 3226 Oct, [facility] [place] [facility] [address] [id number] [place] [address]- 2546 Oct, [facility] [place] [facility] [address] [id number] [place] [address]- 7271 Sep, [facility] [place] [facility] [address] [id number] [place] [address]- 4344 Sep, [facility] [place] [facility] [address] [id number] [place] [address]- 0436 Sep, [facility] [place] [facility] [address] [id number] [place] [address]- 1678 Sep, [facility] [place] [facility] [address] [id number] [place] [address]- 2931 Sep, [facility] [place] [facility] [address] [id number] [place] [address]- 7458 Sep, [facility] [place] [facility] [address] [id number] [place] [address]- 7116 Sep, [facility] [place] [facility] [address] [id number] [place] [address]- 3562 Sep, [facility] [place] [facility] [address] [id number] [place] [address]- 9368 August, [facility] [place] [facility] [address] [id number] [place] [address]- 9815 August, [facility] [place] [facility] [address] [id number] [place] [address]- 6845 August, [facility] [place] [facility] [address] [id number] [place] [address]- 5127 Jul, [facility] [place] [facility] [address] [id number], [place] [address]- 5222 Jul, [facility] [place] [facility] [address] [id number] [place] [address]- 9002 Jun, [facility] [place] [facility] [address] [id number] [place] [address]- 3524 Jun, [facility] [place] [facility] [address] [id number] [place] [address]- 7230 Jun, [facility] [place] [facility] [address] [id number] [place] [address]- 9540 Jun, [facility] [address] [id number] [place] [address]- 1913 May, [facility] [address] [id number] [place] [address]- 2750 May, [facility] [address] [id number] [place] [address]- 9745 Apr, [facility] [address] [id number] [place] [address]- 9928 Apr, [facility] [id number] [place] [address], [place] [address]- 6881 Apr, [facility] [address] [id number] [place] [address]- 6028 Mar, [facility] [address] [id number] [place] [address]- 3061 Mar, [facility] [address] [id number] [place] [address]- 6321 Mar, [facility] [address] [facility] [id number] [place] [address]- 3211 Feb, [facility] [address] [facility] [id number] [place] [address]- 7650 Feb, [facility] [address] [id number] [place] [address]- 5376 Feb, [facility] [address] [id number] [place] [address]- 6218 Feb, [facility] [place] [facility] [address] [id number] [place] [address]- 7956 Jan, [facility] [place] [facility] [address] [id number] [place] [address]- 0697 Jan, [facility] [address] [id number] [place] [address]- 6031 Jan, [facility] [address] [facility] [id number], [place] [address] 2541 16 Dec, 2010 [facility] [address] [facility] [id number], [place] [address] 2546 Oct, [facility] [address] [facility] [id number], [place] [address]- 0826 Mar, [facility] [address] [facility] [id number], [place] [address] 2546 Feb, [facility] [address] [facility] [id number], [place] [address]- 4156 Feb, [facility] [address] [facility] [id number], [place] [address]- 6546 May, [facility] [id number] [place] [address] 2546 Apr, [facility] [id number] [place] [address]- 9529 Mar, [facility] [id number], [place] [address]- 3468 Jan, [facility] [id number], [place] [address]- 5684 Oct, [facility] [id number], [place] [address] 2546 Jul, [facility] [address] [id number], [place] [address] 2546 Mar, [facility] [address] [id number], [place] [address]- 6461 Feb, [facility] [address], [place] [address]- 7616 Jan, IMMUNIZATIONS No Known Immunizations SOCIAL HISTORY Never Assessed REASON FOR VISIT Requests return call PLAN OF CARE VITAL SIGNS MEDICATIONS Medication Instructions Dosage Frequency Start Date End Date Duration Status Pen Cavour 32G X 6 MM subcutaneously Once a day as directed with Victoza 24h Nov, 30 days Active RESULTS No Results PROCEDURES No [...]
--- OUTSIDE RECORDS SUMMARY | 2018-07-05 12:24 | XMS REPORT ---
Author Author KATHYA FISCHER 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 Active 93206596 Problem Polyneuropathy G62.9 Active 80053344 Problem Other male erectile dysfunction N52.8 Active 106345225 Problem Constipation K59.00 Active 61264693 Problem Type 2 diabetes mellitus with 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 E11.65 Active 724412961 Problem Controlled type 2 diabetes mellitus without complication, without long -term current use of insulin E11.9 Active 594823994 Problem skilled nursing current use of insulin Z79.4 Active 854554529 Problem Neuropathy G62.9 Active 833623813 Problem Obstructive sleep apnea G47.33 Active 72307332 Problem Hypertension, benign I10 Active 66138930 Problem Uncontrolled type 2 diabetes mellitus without complication, without long-term current use of insulin E11.65 Active 752225920 Problem Stress incontinence of urine N39.3 Active 97340904 Problem Fibromyalgia M79.7 Active 722479947 ALLERGIES Substance Reaction Event Type Date Status Zinc Unknown Drug Allergy Nov, Active SulfADIAZINE Unknown Drug Allergy Nov, Active Diclofenac tongue swelling Drug Allergy Nov, Active Ibuprofen Unknown Drug Allergy Nov, Active Cozaar Unknown Drug Allergy Nov, Active Nabumetone Unknown Drug Allergy Nov, Active Lasix Unknown Drug Allergy Nov, Active Androgel Unknown Drug Allergy Nov, Active Wool itching Non Drug Allergy Nov, Active rhubarb Unknown Non Drug Allergy Nov, Active raspberry Unknown Non Drug Allergy Nov, Active equal Unknown Non Drug Allergy Nov, Active sweet and low Unknown Non Drug Allergy Nov, Active horseradish Unknown Non Drug Allergy Nov, Active chromates Unknown Non Drug Allergy Nov, Active latex rash Non Drug Allergy Nov, Active Cyclobenzaprine Hcl Oral Tablet 10 10 Mg Tablet dc'd potential for ss Non Drug Allergy Nov, Active ENCOUNTERS Encounter Location Date Diagnosis [place] [address] [address] Dec, [place] [address] [address]- 4723 Dec, Dizziness R42 [place] [address] [address]13- 8306 Dec, Dizziness R42 and Encounter for immunization Z23 [place] [address] 32867- 9797 Dec, Therapeutic drug monitoring Z51.81 and Controlled type 2 diabetes mellitus without complication, without long-term current use of insulin E11.9 [place] [address] 30587- 0388 Dec, [place] [address] 31752- 0990 Dec, [place] [address] 14773- 2397 Dec, [place] [address] 73592- 2858 Nov, [place] [address] 46022- 1180 Nov, Therapeutic drug monitoring Z51.81 [place] [address] [place] [id number] [place] [address] 33337- 4350 Nov, [place] [address] [address]30- 6389 Nov, Therapeutic drug monitoring Z51.81 ; Fibromyalgia M79.7 and Controlled type 2 diabetes mellitus without complication, without long-term current use of insulin E11.9 [place] [address] 29820- 0794 Nov, Type 2 diabetes mellitus with 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 E11.65 [facility] [address] [address]- 5665 Nov, [facility] [id number] [place] [address] 18664- 1947 Nov, [facility] [address] [place] [id number] [place] [address] 82570- 5152 Nov, Type 2 diabetes mellitus with 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 E11.65 [facility] [address] [place] [id number] [place] [address] 52781- 2763 Nov, [facility] [address] [place] [id number] [place] [address] 69966- 5719 Nov, [facility] [address] [place] [id number] [place] [address] 12486- 1765 Nov, Constipation K59.00 [facility] [address] [place] [id number] [place] [address] 14095- 5275 Oct, Diabetes type 2, controlled E11.9 [facility] [id number] [place] [address] 68588- 5477 Oct, Type 2 diabetes mellitus with 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 E11.65 ; 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 and Neuropathy G62.9 [facility] [address] [address]- 8864 Oct, [facility] [id number] [place] [address] 26499- 2626 Oct, [facility] [address], [place] [address]- 7749 Oct, [facility] [address] [place] [id number] [place] [address] 94237- 6523 Oct, [facility] [id number] [place] [address] 73039- 5670 Oct, [facility] [address] [place] [id number] [place] [address] 78023- 2531 Oct, [facility] [address], [place] [address]- 0146 Oct, [facility] [address] [place] [id number] [place] [address] 22110- 2636 Sep, [facility] [address], [place] [address] 2546 Sep, Uncontrolled type 2 diabetes mellitus without complication, without long-term current use of insulin E11.65 [place] [address], [place] [address]- 4668 Sep, Hypertension, benign I10 ; Fibromyalgia M79.7 ; Controlled type 2 diabetes mellitus without complication, without long-term current use of insulin E11.9 and Uncontrolled type 2 diabetes mellitus without complication, without long-term current use of insulin E11.65 [place] [address] [place] [id number] [address]- 8303 Sep, [facility] [address], [place] [address]- 0831 Sep, Uncontrolled type 2 diabetes mellitus without complication, without long-term current use of insulin E11.65 [place] [address], [place] [address]- 7013 Sep, [place] [address], [place] [address]- 3876 Sep, [facility] [address], [place] [address] 254 Sep, Uncontrolled type 2 diabetes mellitus without complication, without long-term current use of insulin E11.65 and Fibromyalgia M79.7 [facility] [address], [place] [address] 2546 August, [facility] [address], [place] [address] 2546 August, [facility] [address], [place] [address]- 6506 August, [facility] [address] [place] [id number] [place] [address] 26904- 2691 August, Fibromyalgia M79.7 [facility] [address] [place] [id number] [place] [address] 41683- 9373 Jul, Hypertension, benign I10 [facility] [address] 16650- 2265 Jul, Fibromyalgia M79.7 [facility] [address] 92254- 2991 Jul, [facility] [address] 94869- 0144 Jun, [facility] [address] [place] [id number] [place] [address] 70453- 5328 Jun, Hypertension, benign I10 ; Arthritis M19.90 ; 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 [address] [place] [id number] [place] [address] 60414 -8555 Jun, Acute nasopharyngitis J00 and BMI 50.0-59.9, adult Z68.43 [facility] [address] [place] [id number] [place] [address] 78361- 8071 Jun, Fibromyalgia M79.7 [facility] [address] [place] [id number] [place] [address] 30981- 0665 May, [facility] [address] [place] [id number] [place] [address] 64578- 4985 May, Fibromyalgia M79.7 [facility] [address] [place] [id number] [place] [address] 77666- 8695 Apr, Fibromyalgia M79.7 [facility] [address] [place] [id number] [place] [address] 96598- 3242 Apr, [facility] [address] [place] [id number] [place] [address] 38447- 6733 Apr, [facility] [address] [place] [id number] [place] [address] 47843- 7276 Apr, Arthritis M19.90 [facility] [address] [place] [id number] [place] [address] 40006 2546 10 Apr, 2017 Arthritis M19.90 [facility] [address] [place] [id number] [place] [address] 02092 2546 Apr, Arthritis M19.90 and Controlled type 2 diabetes mellitus without complication, without long-term current use of insulin E11.9 [facility] [address] [place] [id number] [place] [address] 79193- 9826 Apr, [facility] [address] [place] [id number] [place] [address] 90414- 5817 Apr, Fibromyalgia M79.7 [facility] [address] [place] [id number] [place] [address] 34669 2542 Mar, [facility] [address] [place] [id number] [place] [address] 44633- 8299 Mar, [facility] [address] [place] [id number] [place] [address] 18773- 1717 Mar, Fibromyalgia M79.7 [facility] [address] [place] [id number] [place] [address] 73910 2546 Feb, [facility] [address] [place] [id number] [place] [address] 50312 2547 Feb, [facility] [address] [place] [id number] [place] [address] 52557 2546 Feb, [facility] [address] [place] [id number] [place] [address] 81305 2546 Feb, Fibromyalgia M79.7 [facility] [address], [place] [address] 2546 Feb, Diabetes type 2, uncontrolled E11.65 and Encounter for immunization Z23 [facility] [address] [place] [id number] [place] [address] 98733- 6711 Jan, [facility] [address] [place] [id number] [place] [address] 78255- 7019 Jan, Fibromyalgia M79.7 [facility] [address] [place] [id number] [place] [address] 14125- 8577 Dec, [facility] [address] [place] [id number] [place] [address] 01783- 7010 Dec, Fibromyalgia M79.7 [facility] [address] [place] [id number] [place] [address] 47040- 0103 Nov, [facility] [address] [place] [id number] [place] [address] 35354- 6604 Nov, [facility] [address] [place] [id number] [place] [address] 43961- 6866 Nov, 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 and Polyneuropathy G62.9 [facility] [address] [place] [id number] [place] [address] 07359- 1375 Nov, [facility] [address] [place] [id number] [place] [address] 16795- 9433 Nov, [facility] [address] [place] [id number] [place] [address] 87234- 3525 Oct, Diabetes type 2, uncontrolled E11.65 [facility] [address] [place] [id number] [place] [address] 18759- 4361 Oct, Diabetes type 2, uncontrolled E11.65 ; Polyneuropathy G62.9 and Pain in right wrist M25.531 [facility] [address] [place] [id number] [place] [address] 92846- 8211 Oct, [facility] [address] [place] [id number] [place] [address] 43468- 1446 Oct, Pain in left shoulder M25.512 [facility] [address] [place] [id number] [address]- 2466 Sep, [facility] [address], [place] [address]- 9806 Sep, Pain in left shoulder M25.512 [facility] [address] [place] [id number] [address]- 8656 Sep, [facility] [address] [place] [id number] [place] [address] 98209- 2469 August, Pain in left shoulder M25.512 [facility] [address], [place] [address]- 6566 Jul, [facility] [address] [place] [id number] [place] [address] 35070- 2506 Jul, [facility] [address] [place] [id number] [place] [address] 72798- 9655 Jul, Pain in left shoulder M25.512 [facility] [address] [place] [id number] [place] [address] 51657- 1878 Jun, [facility] [address] [place] [id number] [place] [address] 62630- 8356 Jun, [facility] [address] [place] [id number] [place] [address] 13617- 6413 Jun, Diabetes type 2, uncontrolled E11.65 ; Fibromyalgia M79.7 and Arthritis M19.90 [facility] [address] [place] [id number] [address]- 9869 Jun, Pain in left shoulder M25.512 [facility] [address], [place] [address]- 1836 May, [facility] [address] [place] [id number] [place] [address] 01623- 4736 May, Diabetes type 2, controlled E11.9 [facility] [address] [place] [id number] [place] [address] 49557- 6356 May, [facility] [address], [place] [address]- 0166 15 May, 2016 Uncontrolled type 2 diabetes mellitus without complication, without long-term current use of insulin E11.65 [facility] [id number] [place] [address] 73943- 4799 15 May, 2016 Pain in left shoulder M25.512 [facility] [address] [place] [id number] [place] [address] 39499- 2278 03 May, 2016 Diabetes type 2, controlled E11.9 and Uncontrolled type 2 diabetes mellitus without complication, without long-term current use of insulin E11.65 [facility] [address] [place] [id number] [place] [address] 763478- 3896 Apr, [facility] [address] [place] [id number] [place] [address] 46169- 5676 Apr, [facility] [address] [place] [id number] [place] [address] 93971- 9521 Mar, [facility] [address] [place] [id number] [place] [address] 21247- 7604 Mar, [facility] [address] [place] [id number] [place] [address] 86362- 9921 Mar, [facility] [id number] [place] [address] 76576- 6070 Feb, [facility] [address] [place] [address] [id number] Feb, Dental examination Z01.20 [facility] [address] 8474 Jan, [facility] [address] [place] [id number] [place] [address] 08308- 3356 14 Dec, 2015 [facility] [address], [place] [address]- 0856 Dec, [facility] [address] [place] [id number] [place] [address] 21838- 8461 Dec, [facility] [address] [facility] [id number] [place] [address]- 7484 Dec, Diabetes type 2, controlled E11.9 [facility] [address] [id number] [place] [address]- 3810 Nov, [facility] [address] [facility] [id number] [place] [address]- 0010 Nov, [facility] [address] [id number] [place] [address]- 2350 Nov, [facility] [address] [id number] [place] [address]- 6843 Nov, [facility] [address] [facility] [id number] [place] [address]- 2166 Oct, [facility] [address] [facility] [id number] [place] [address]- 9542 Oct, [facility] [address] [facility] [id number] [place] [address]- 1385 Oct, [facility] [address] [facility] [id number] [place] [address]- 3607 Sep, [facility] [address] [facility] [id number] [place] [address]- 5911 Sep, Diabetes type 2, controlled E11.9 [facility] [address] [facility] [id number] [place] [address]- 3558 Sep, Diabetes type 2, controlled E11.9 [facility] [address] [facility] [id number] [place] [address]- 8564 August, [facility] [address] [facility] [id number] [place] [address]- 2475 August, [facility] [address] [facility] [id number] [place] [address]- 9811 August, Type 2 diabetes mellitus without complication E11.9 and Pain in left shoulder M25.512 [facility] [address], [place] [address]- 5907 Jul, [facility] [address] [place] [id number] [place] [address] 99273- 7603 Jul, Diabetes type 2, controlled E11.9 and Hypertension, benign I10 [facility] [address], [place] [address]- 9828 Jun, [facility] [address] [place] [id number] [place] [address] 74513- 0021 Jun, [facility] [address] [place] [id number] [place] [address] 97714- 1879 Jun, Diabetes 250.00 [facility] [address] [place] [id number] [place] [address] 69107- 7653 Jun, [facility] [address] [place] [id number] [place] [address] 72623- 3650 May, Diabetes type 2, uncontrolled E11.65 [facility] [address] [place] [id number] [place] [address] 80512- 6652 May, [facility] [address] [place] [id number] [place] [address] 46988- 3275 Apr, Type 2 diabetes mellitus without complication E11.9 [facility] [address], [place] [address]- 3478 Apr, Encounter for immunization Z23 [facility] [id number] [place] [address] 22174- 9446 Apr, [facility] [address], [place] [address]- 0856 Mar, [facility] [address] [place] [id number] [place] [address] 57333- 2732 Mar, [facility] [address], [place] [address]- 4283 Mar, [facility] [address] [place] [id number] [address]- 7861 Feb, [facility] [address], [place] [address]- 5458 Jan, [facility] [address] 4213 Jan, [facility] [address] 0709 Jan, [facility] [address], [place] [address]- 0572 Dec, Diabetes 250.00 and COPD (chronic obstructive pulmonary disease) 496 [facility] [address] 7134 Dec, [facility] [address], [place] [address]- 2646 Dec, [facility] [address], [place] [address]- 6289 Nov, [facility] [address], [place] [address]- 0288 Oct, Diabetes 250.00 [facility] [address], [place] [address]- 0178 Sep, [facility] [address], [place] [address]- 2065 Sep, [facility] [address], [place] [address]- 5925 Sep, [facility] [address] [place] [id number] [address]- 5877 Sep, Diabetes 250.00 [facility] [address], [place] [address]- 0616 Sep, [facility] [address] [place] [id number], [place] [address]- 6663 Sep, [facility] [address] [id number] [address]- 5094 August, Hypertension, essential, benign 401.1 ; Coronary atherosclerosis of [place] coronary artery 414.01 and Diabetic neuropathy associated with type 2 diabetes mellitus 250.60 [facility] [address] [place] [address]- 8997 29 Jul, 2014 [facility] [address], [place] [address]- 8887 14 Jul, 2014 [facility] [address], [place] [address]- 8162 Jul, [facility] [address] [place] [id number] [place] [address] 98683- 3543 Jun, [facility] [address], [place] [address]- 6767 Jun, [facility] [id number] [address]- 6188 Jun, [facility] [address], [place] [address]- 2708 Jun, [facility] [address] [place] [address]- 8583 Jun, [facility] [address], [place] [address]- 8194 May, [facility] [address], [place] [address]- 6457 May, [facility] [address], [place] [address]- 8660 May, [facility] [address], [place] [address]- 6687 May, [facility] [address], [place] [address]- 4296 May, [facility] [address] 5438 May, [facility] [place] [facility] [address] [id number] [place] [address]- 6547 May, [facility] [place] [facility] [address] [id number] [place] [address]- 2920 Apr, [facility] [place] [facility] [address] [id number] [place] [address]- 8215 Apr, [facility] [place] [facility] [address] [id number] [place] [address]- 5532 Apr, [facility] [place] [facility] [address] [id number] [place] [address]- 5194 Apr, [facility] [place] [facility] [address] [id number] [place] [address] Mar, [facility] [place] [facility] [address] [id number] [place] [address] Mar, [facility] [place] [facility] [address] [id number] [place] [address] Mar, [facility] [place] [facility] [address] [id number] [place] [address] Mar, [facility] [place] [facility] [address] [id number] [place] [address] Feb, [facility] [place] [facility] [address] [id number] [place] [address] Feb, [facility] [place] [facility] [address] [id number] [address] Feb, [facility] [place] [facility] [address] [id number] [place] [address] Feb, [facility] [place] [facility] [address] [id number] [place] [address] Feb, [facility] [place] [facility] [address] [id number] [place] [address] Feb, [facility] [place] [facility] [address] [id number] [place] [address] Feb, [facility] [place] [facility] [address] [id number] [place] [address] Jan, [facility] [place] [facility] [address] [id number] [place] [address] Jan, [facility] [place] [facility] [address] [id number] [place] [address] Dec, 2013 [facility] [place] [facility] [address] [id number] [place] [address] 23 Dec, 2013 [facility] [place] [facility] [address] [id number] [place] [address] Dec, [facility] [place] [facility] [address] [id number] [place] [address] Dec, 2013 [facility] [place] [facility] [address] [id number] [place] [address] Dec, [facility] [place] [facility] [address] [id number] [place] [address] Dec, [facility] [place] [facility] [address] [id number] [place] [address] Dec, [facility] [place] [facility] [address] [id number] [place] [address] Dec, [facility] [place] [facility] [address] [id number] [place] [address] Nov, [facility] [place] [facility] [address] [id number] [place] [address] Nov, [facility] [place] [facility] [address] [id number] [place] [address] Nov, [facility] [place] [facility] [address] [id number] [place] [address] Nov, [facility] [place] [facility] [address] [id number] [place] [address] Oct, [facility] [place] [facility] [address] [id number] [place] [address] 87[address] Oct, [facility] [place] [facility] [address] [id number] [place] [address] Oct, [facility] [place] [facility] [address] [id number] [place] [address] Oct, 2013 [facility] [place] [facility] [address] [id number] [place] [address] Oct, 2013 [facility] [place] [facility] [address] [id number] [place] [address] 0964 Oct, 2013 [facility] [place] [facility] [address] [id number] [place] [address] 65[address] Oct, [facility] [place] [facility] [address] [id number] [place] [address] 4720 Oct, [facility] [place] [facility] [address] [id number] [place] [address] 1329 Sep, [facility] [place] [facility] [address] [id number] [place] [address] Sep, [facility] [place] [facility] [address] [id number] [place] [address] 8171 August, [facility] [place] [facility] [address] [id number] [place] [address]- 0667 August, [facility] [place] [facility] [address] [id number] [place] [address]37 Jul, [facility] [place] [facility] [address] [id number] [place] [address] Jul, [facility] [place] [facility] [address] [id number] [place] [address]- 3[address] Jul, [facility] [place] [facility] [address] [id number] [place] [address]- 0999 Jul, [facility] [place] [facility] [address] [id number] [place] [address]- 9088 Jul, [facility] [place] [facility] [address] [id number] [place] [address] 2825 Jul, [facility] [place] [facility] [address] [id number] [place] [address]- 4[address] Jul, [facility] [place] [facility] [address] [id number] [place] [address]- 6973 Jul, [facility] [place] [facility] [address] [id number] [place] [address]- 2299 Jun, [facility] [place] [facility] [address] [id number] [place] [address]- 4526 Jun, [facility] [place] [facility] [address] [id number] [place] [address]- 0895 Jun, [facility] [place] [facility] [address] [id number] [place] [address]- 9269 Jun, [facility] [place] [facility] [address] [id number] [place] [address]- 1490 May, [facility] [place] [facility] [address] [id number] [place] [address]- 4599 May, [facility] [place] [facility] [address] [id number] [place] [address]- 6169 Apr, [facility] [place] [facility] [address] [id number] [place] [address]- 6505 Apr, [facility] [place] [facility] [address] [id number] [place] [address] 3090 Mar, [facility] [place] [facility] [address] [id number] [place] [address] Mar, [facility] [place] [facility] [address] [id number] [place] [address] Mar, [facility] [place] [facility] [address] [id number] [place] [address] Mar, [facility] [place] [facility] [address] [id number] [place] [address]- 9159 18 Mar, 2013 [facility] [address] [id number] [place] [address]- 6024 Mar, [facility] [place] [facility] [address] [id number] [place] [address]- 2027 Feb, [facility] [address] [id number] [place] [address]- 0060 Feb, [facility] [place] [facility] [address] [id number] [place] [address]- 0870 Feb, [facility] [address] [id number] [place] [address]- 1294 Feb, [facility] [address] [id number] [place] [address]- 5886 Feb, [facility] [place] [facility] [address] [id number] [place] [address] 0364 Feb, [facility] [address] [id number] [place] [address]- 4605 Feb, [facility] [place] [facility] [address] [id number] [place] [address]- 0805 Feb, [facility] [address] [id number] [place] [address]- 7413 15 Jan, 2013 [facility] [place] [facility] [address] [id number] [place] [address]- 4295 15 Jan, 2013 [facility] [place] [facility] [address] [id number], [place] [address] 14 Jan, 2013 [facility] [place] [facility] [address] [id number] [place] [address]- 8999 14 Jan, 2013 [facility] [place] [facility] [address] [id number] [place] [address]- 0276 18 Dec, 2012 [facility] [place] [facility] [address] [id number] [place] [address]- 5262 Dec, [facility] [address] [id number] [place] [address]- 3953 Dec, [facility] [place] [facility] [address] [id number] [place] [address]- 8470 Nov, [facility] [place] [facility] [address] [id number] [place] [address]- 3365 Nov, [facility] [place] [facility] [address] [id number] [place] [address]- 7331 Oct, [facility] [place] [facility] [address] [id number] [place] [address] Oct, [facility] [place] [facility] [address] [id number] [place] [address]- 0641 Oct, [facility] [place] [facility] [address] [id number] [place] [address]- 3642 Sep, [facility] [place] [facility] [address] [id number] [place] [address]- 2508 Sep, [facility] [place] [facility] [address] [id number] [place] [address]- 0685 Sep, [facility] [place] [facility] [address] [id number] [place] [address]- 5057 Sep, [facility] [place] [facility] [address] [id number] [place] [address]- 9946 Sep, [facility] [place] [facility] [address] [id number], [place] [address] 1486 Sep, [facility] [place] [facility] [address] [id number] [place] [address]- 5733 August, [facility] [place] [facility] [address] [id number] [place] [address]- 7000 August, [facility] [place] [facility] [address] [id number] [place] [address] August, [facility] [place] [facility] [address] [id number], [place] [address] 0959 August, [facility] [address] [id number] [place] [address]- 9933 August, [facility] [address] [id number] [place] [address]- 1031 August, [facility] [address] [facility] [id number] [place] [address]- 6726 August, [facility] [address] [id number] [place] [address]- 4160 Jul, [facility] [address] [id number] [place] [address]- 2033 Jul, [facility] [address] [id number] [place] [address]- 6910 Jun, [facility] [address] [id number] [place] [address]- 5770 Jun, [facility] [address] [id number] [place] [address]- 7835 May, [facility] [address] [id number] [place] [address]- 0435 May, [facility] [address] [facility] [id number] [place] [address]- 3916 Apr, [facility] [address] [id number] [place] [address]- 5520 Mar, [facility] [address] [id number] [place] [address]- 5753 Mar, [facility] [address] [id number] [place] [address]- 9696 Mar, [facility] [address] [id number] [place] [address] Mar, [facility] [address] [id number] [place] [address]- 9576 Mar, [facility] [place] [facility] [address] [id number] [place] [address]- 1746 Mar, [facility] [place] [facility] [address] [id number] [place] [address]- 6609 Feb, [facility] [place] [facility] [address] [id number] [place] [address]- 4848 Feb, [facility] [place] [facility] [address] [id number] [place] [address]- 4629 Feb, [facility] [place] [facility] [address] [id number] [place] [address]- 0833 Feb, [facility] [place] [facility] [address] [id number] [place] [address]- 0544 Feb, [facility] [place] [facility] [address] [id number] [place] [address]- 5993 Feb, [facility] [place] [facility] [address] [id number] [place] [address]- 6344 Feb, [facility] [place] [facility] [address] [id number] [place] [address]- 9082 Feb, [facility] [place] [facility] [address] [id number] [place] [address]- 0293 Jan, [facility] [place] [facility] [address] [id number] [place] [address]- 2123 Jan, [facility] [place] [facility] [address] [id number] [place] [address]- 3752 28 Dec, 2011 [facility] [place] [facility] [address] [id number] [place] [address]- 2260 19 Dec, 2011 [facility] [place] [facility] [address] [id number] [place] [address]- 9659 18 Dec, 2011 [facility] [place] [facility] [address] [id number] [place] [address]- 7058 18 Dec, 2011 [facility] [place] [facility] [address] [id number] [place] [address]- 8557 Dec, [facility] [place] [facility] [address] [id number] [place] [address]- 7572 Nov, [facility] [place] [facility] [address] [id number] [place] [address]- 1772 Oct, [facility] [place] [facility] [address] [id number] [place] [address]- 9504 Oct, [facility] [place] [facility] [address] [id number] [place] [address]- 2256 Sep, [facility] [place] [facility] [address] [id number] [place] [address]- 2602 Sep, [facility] [place] [facility] [address] [id number] [place] [address]- 8375 Sep, [facility] [place] [facility] [address] [id number] [place] [address]- 7511 Sep, [facility] [place] [facility] [address] [id number] [place] [address]- 5259 Sep, [facility] [place] [facility] [address] [id number] [place] [address]- 6990 Sep, [facility] [place] [facility] [address] [id number] [place] [address]- 4715 Sep, [facility] [place] [facility] [address] [id number] [place] [address]- 8245 Sep, [facility] [place] [facility] [address] [id number], [place] [address]- 5004 August, [facility] [place] [facility] [address] [id number] [place] [address]- 8159 August, [facility] [place] [facility] [address] [id number] [place] [address]- 5737 August, [facility] [place] [facility] [address] [id number] [place] [address]- 6972 Jul, [facility] [place] [facility] [address] [id number] [place] [address] 2546 Jul, [facility] [address] [id number] [place] [address]- 0536 Jun, [facility] [address] [id number] [place] [address] 2546 Jun, [facility] [address] [id number] [place] [address] 2546 Jun, [facility] [address] [id number] [place] [address]- 2546 Jun, [facility] [address] [id number] [place] [address]- 3515 May, [facility] [address] [id number] [place] [address]- 3966 May, [facility] [address] [id number] [place] [address]- 4751 Apr, [facility] [address] [id number] [place] [address]- 1715 Apr, [facility] [address] [id number] [place] [address]- 4528 Apr, [facility] [address] [id number] [place] [address]- 0299 Mar, [facility] [address] [id number] [place] [address] 2546 Mar, [facility] [address] [id number] [place] [address]- 2546 Mar, [facility] [place] [facility] [address] [id number] [place] [address]- 4166 Feb, [facility] [place] [facility] [address] [id number] [place] [address]- 2546 Feb, [facility] [address] [id number] [place] [address]- 8125 Feb, [facility] [place] [facility] [address] [id number] [place] [address]- 7520 09 Feb, 2011 [facility] [place] [facility] [address] [id number] [place] [address]- 1943 25 Jan, 2011 [facility] [place] [facility] [address] [id number] [place] [address]- 4368 14 Jan, 2011 [facility] [place] [facility] [address] [id number] [place] [address]- 4577 12 Jan, 2011 [facility] [place] [facility] [address] [id number] [place] [address]- 7800 16 Dec, 2010 [facility] [place] [facility] [address] [id number] [place] [address]- 0645 Oct, [facility] [place] [facility] [address] [id number] [place] [address]- 7640 24 Mar, 2010 [facility] [place] [facility] [address] [id number] [place] [address]- 5354 Feb, [facility] [place] [facility] [address] [id number] [place] [address]- 5024 Feb, [facility] [place] [facility] [address] [id number], [place] [address]- 8173 16 May, 2009 [facility] [place] [facility] [address] [id number] [place] [address]- 7108 Apr, [facility] [place] [facility] [address] [id number], [place] [address]- 4002 29 Mar, 2009 [facility] [place] [facility] [address] [id number] [place] [address]- 4075 30 Jan, 2009 [facility] [place] [facility] [address] [id number], [place] [address]- 7829 15 Oct, 2008 [facility] [place] [facility] [address] [id number] [place] [address]- 5744 16 Jul, 2008 [facility] [place] [facility] [address] [id number] [place] [address]- 2546 Mar, [facility] [address] [facility] [id number] [place] [address]- 2546 Feb, [facility] [address] [facility] [id number] [place] [address]- 2546 Jan, IMMUNIZATIONS No Known Immunizations SOCIAL HISTORY Never Assessed REASON FOR VISIT Allergic reaction PLAN OF CARE VITAL SIGNS MEDICATIONS Medication Instructions Dosage Frequency Start Date End Date Duration Status PredniSONE 20 mg Orally Once a day 2 tablets 24h Nov, Dec, 05 days Active RESULTS No Results PROCEDURES No [...]
--- OUTSIDE RECORDS SUMMARY | 2018-07-05 12:25 | XMS REPORT ---
Author Author KATHYA FISCHER [facility] Address [address] [place] [address] Care Team Providers Care Laceworker Name Role Phone KATHYA FISCHER Unavailable PROBLEMS Type Condition ICD9-CM Code ECN01-AH Code Onset Dates Condition Status SNOMED Code Problem Arthritis M19.90 Active 5668167 Problem 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 Active 54569186 Problem Polyneuropathy G62.9 Active 51176668 Problem Other male erectile dysfunction N52.8 Active 128055113 Problem Constipation K59.00 Active 26635294 Problem Type 2 diabetes mellitus with 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 E11.65 Active 055962880 Problem Controlled type 2 diabetes mellitus without complication, without long -term current use of insulin E11.9 Active 599397250 Problem intermediate current use of insulin Z79.4 Active 563371889 Problem Neuropathy G62.9 Active 852568975 Problem Obstructive sleep apnea G47.33 Active 72947080 Problem Hypertension, benign I10 Active 17077166 Problem Uncontrolled type 2 diabetes mellitus without complication, without long-term current use of insulin E11.65 Active 777494252 Problem Stress incontinence of urine N39.3 Active 57679389 Problem Fibromyalgia M79.7 Active 811314061 ALLERGIES Substance Reaction Event Type Date Status Zinc Unknown Drug Allergy Nov, Active Lasix Unknown Drug Allergy Nov, Active Cozaar Unknown Drug Allergy Nov, Active SulfADIAZINE Unknown Drug Allergy Nov, Active Nabumetone Unknown Drug Allergy Nov, Active Androgel Unknown [...] Nov, Active ENCOUNTERS Encounter Location Date Diagnosis [facility] [address] [address]- [address] Dec, [facility] [id number] [place] [address] 06630- 2001 Dec, [facility] [address] 06051- 9336 Dec, [facility] [address] 74752- 6519 Dec, [facility] [address] 04216- 5299 Nov, [facility] [address] 63046- 4663 Nov, Therapeutic drug monitoring Z51.81 [facility] [address] 60207- 0615 Nov, [facility] [id number] [place] [address] 87560- 4234 Nov, Therapeutic drug monitoring Z51.81 ; Fibromyalgia M79.7 and Controlled type 2 diabetes mellitus without complication, without long-term current use of insulin E11.9 [facility] [id number] [place] [address] 76118- 8488 Nov, Type 2 diabetes mellitus with 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 E11.65 [facility] [id number] [place] [address] 66983- 5628 Nov, [facility] [id number] [place] [address] 63951- 6810 Nov, [facility] [id number] [place] [address] 02213- 0659 Nov, Type 2 diabetes mellitus with 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 E11.65 [facility] [id number] [place] [address] 15853- 0820 Nov, [place] [id number] [address] 5688 Nov, [facility] [id number] [place] [address] 80317- 8217 Nov, Constipation K59.00 [facility] [id number] [address]- 6106 Oct, Diabetes type 2, controlled E11.9 [facility] [id number] [place] [address] 56604- 5700 Oct, Type 2 diabetes mellitus with 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 E11.65 ; 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 and Neuropathy G62.9 [facility] [id number] [place] [address] 03697- 1896 Oct, [facility] [id number] [place] [address] 28435- 4763 Oct, [facility] [id number] [place] [address] 64648- 7493 Oct, [facility] [id number] [place] [address] 65533- 9482 Oct, [facility] [id number] [place] [address] 11852- 4400 Oct, [facility] [id number] [address]- 4578 Oct, [facility] [id number] [address]- 7595 Oct, [facility] [id number] [address]- 9067 Sep, [facility] [id number] [address]- 1888 Sep, Uncontrolled type 2 diabetes mellitus without complication, without long-term current use of insulin E11.65 [facility] [id number] [place] [address] 96678- 9615 Sep, Hypertension, benign I10 ; Fibromyalgia M79.7 ; Controlled type 2 diabetes mellitus without complication, without long-term current use of insulin E11.9 and Uncontrolled type 2 diabetes mellitus without complication, without long-term current use of insulin E11.65 [facility] [id number] [place] [address] 98365- 8707 Sep, [facility] [id number] [place] [address] 97428- 8846 Sep, Uncontrolled type 2 diabetes mellitus without complication, without long-term current use of insulin E11.65 [facility] [id number] [place] [address] 93878- 3501 Sep, [facility] [id number] [place] [address] 87831- 9809 Sep, [facility] [id number] [place] [address] 90365- 6060 Sep, Uncontrolled type 2 diabetes mellitus without complication, without long-term current use of insulin E11.65 and Fibromyalgia M79.7 [facility] [id number] [place] [address] 24077- 5522 August, [facility] [id number] [place] [address] 64815- 6646 August, [facility] [id number] [place] [address] 09824- 6210 August, [facility] [id number] [place] [address] 00041- 5203 August, Fibromyalgia M79.7 [facility] [id number] [place] [address] 01496- 8123 Jul, Hypertension, benign I10 [facility] [id number] [place] [address] 27996- 3807 Jul, Fibromyalgia M79.7 [facility] [id number] [place] [address] 61951- 3736 Jul, [facility] [id number] [place] [address] 17563- 5309 Jun, [facility] [address] 31184- 1877 Jun, Hypertension, benign I10 ; Arthritis M19.90 ; intermediate current use 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 Z79.891 and Uncontrolled type 2 diabetes mellitus without complication, without long-term current use of insulin E11.65 [facility] [id number] [place] [address] 55084 -9081 Jun, Acute nasopharyngitis J00 and BMI 50.0-59.9, adult Z68.43 [place] [facility] [address] 50515- 6043 Jun, Fibromyalgia M79.7 [place] [facility] [address] 10558- 0543 14 May, 2017 [place] [id number] [place] [address] 83266- 4834 02 May, 2017 Fibromyalgia M79.7 [facility] [address] 11390- 3298 Apr, Fibromyalgia M79.7 [facility] [id number] [place] [address] 29751- 7146 Apr, [place] [id number] [place] [address] 98393- 5877 Apr, [facility] [id number] [place] [address] 08417- 2319 Apr, Arthritis M19.90 [facility] [address] 64448- 0177 Apr, Arthritis M19.90 [facility] [id number] [place] [address] 74997- 0359 Apr, Arthritis M19.90 and Controlled type 2 diabetes mellitus without complication, without long-term current use of insulin E11.9 [facility] [id number] [place] [address] 95468- 2316 Apr, [facility] [address] 55268- 4365 Apr, Fibromyalgia M79.7 [facility] [id number] [place] [address] 45753- 3370 Mar, [facility] [address] 51264- 5205 Mar, [facility] [address] 14036- 3785 Mar, Fibromyalgia M79.7 [facility] [id number] [place] [address] 75076- 7489 Feb, [facility] [address] 30540- 2450 Feb, [facility] [address] 17375- 9092 Feb, [facility] [address] 75360- 7122 Feb, Fibromyalgia M79.7 [facility] [id number] [place] [address] 89916- 3453 Feb, Diabetes type 2, uncontrolled E11.65 and Encounter for immunization Z23 [facility] [id number] [place] [address] 98397- 3475 Jan, [facility] [id number] [place] [address] 94853- 5836 Jan, Fibromyalgia M79.7 [facility] [id number] [place] [address] 92612- 3615 Dec, [facility] [id number] [place] [address] 71348- 9553 Dec, Fibromyalgia M79.7 [facility] [address] [place] [address]- 0143 Nov, [facility] [id number] [address]- 5251 Nov, [facility] [id number] [place] [address] 99579- 9258 Nov, 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 and Polyneuropathy G62.9 [facility] [id number] [place] [address] 83664- 6775 Nov, [facility] [id number] [place] [address] 08971- 8682 Nov, [facility] [id number] [place] [address] 05645- 3596 Oct, Diabetes type 2, uncontrolled E11.65 [facility] [id number] [place] [address] 26219- 2566 Oct, Diabetes type 2, uncontrolled E11.65 ; Polyneuropathy G62.9 and Pain in right wrist M25.531 [facility] [id number] [place] [address] 04349- 4125 Oct, [facility] [id number] [place] [address] 82416- 7476 Oct, Pain in left shoulder M25.512 [facility] [id number] [address]- 7179 Sep, [facility] [id number] [place] [address] 58907- 4299 Sep, Pain in left shoulder M25.512 [facility] [id number] [address]- 8375 Sep, [facility] [id number] [place] [address] 96854- 8454 August, Pain in left shoulder M25.512 [facility] [id number] [place] [address] 37617- 9760 Jul, [facility] [id number] [address]- 6146 Jul, [facility] [id number] [place] [address] 59900- 8342 Jul, Pain in left shoulder M25.512 [facility] [id number] [place] [address] 74204- 6632 Jun, [facility] [id number] [place] [address] 46795- 4499 Jun, [facility] [id number] [place] [address] 97521- 9919 Jun, Diabetes type 2, uncontrolled E11.65 ; Fibromyalgia M79.7 and Arthritis M19.90 [facility] [id number] [place] [address] 39919- 6310 Jun, Pain in left shoulder M25.512 [facility] [id number] [place] [address] 16473- 1627 May, [facility] [id number] [place] [address] 82448- 3439 May, Diabetes type 2, controlled E11.9 [facility] [id number] [place] [address] 37499- 0264 May, [facility] [id number] [place] [address] 46989- 2958 May, Uncontrolled type 2 diabetes mellitus without complication, without long-term current use of insulin E11.65 [facility] [id number] [address]- 4258 May, Pain in left shoulder M25.512 [facility] [id number] [place] [address] 60901- 7573 03 May, 2016 Diabetes type 2, controlled E11.9 and Uncontrolled type 2 diabetes mellitus without complication, without long-term current use of insulin E11.65 [facility] [address] [id number] [place] [address]- 6181 Apr, [facility] [address] [id number] [place] [address]- 4730 Apr, [facility] [address] [id number] [place] [address]- 6867 Mar, [facility] [address] [id number] [place] [address]- 7334 Mar, [facility] [address] [id number] [place] [address]- 6420 Mar, [facility] [address] [id number] [place] [address]- 1644 Feb, [facility] [address] [id number] [id number] Feb, Dental examination Z01.20 [facility] [address] [id number] [address]- 0515 Jan, [facility] [address] [id number] [place] [address]- 2930 Dec, [facility] [address] [facility] [id number] [place] [address]- 6308 Dec, [facility] [address] [id number] [place] [address]- 9079 Dec, [facility] [address] [id number] [place] [address]- 6133 Dec, Diabetes type 2, controlled E11.9 [facility] [address] [id number] [place] [address]- 3714 Nov, [facility] [address] [id number] [place] [address]- 3175 Nov, [facility] [address] [id number] [place] [address]- 3546 Nov, [facility] [id number] [address]- 6774 Nov, [facility] [id number] [address]- 8742 Oct, [facility] [id number] [address]- 0700 Oct, [facility] [id number] [address]- 4622 Oct, [facility] [id number] [address]- 7276 Sep, [facility] [address] [place] [address], [place] [address]- 9813 Sep, Diabetes type 2, controlled E11.9 [facility] [id number] [address]- 1510 Sep, Diabetes type 2, controlled E11.9 [facility] [id number] [address]- 9020 August, [facility] [id number] [address]- 0290 August, [facility] [id number] [address]- 9395 August, Type 2 diabetes mellitus without complication E11.9 and Pain in left shoulder M25.512 [facility] [id number] [address]- 4020 Jul, [facility] [id number] [address]- 0472 Jul, Diabetes type 2, controlled E11.9 and Hypertension, benign I10 [facility] [id number] [address]- 1665 Jun, [facility] [id number] [address]- 2528 Jun, [facility] [id number] [place] [address] 14796- 8506 Jun, Diabetes 250.00 [facility] [id number] [place] [address] 12796- 2170 Jun, [facility] [id number] [place] [address] 72727- 1421 May, Diabetes type 2, uncontrolled E11.65 [facility] [address] 96276- 9692 May, [facility] [id number] [place] [address] 26362- 0727 Apr, Type 2 diabetes mellitus without complication E11.9 [facility] [id number] [place] [address] 08270- 4517 Apr, Encounter for immunization Z23 [facility] [id number] [place] [address] 93438- 5449 Apr, [facility] [id number] [place] [address] 15254- 0172 Mar, [facility] [id number] [place] [address] 53098- 0897 Mar, [facility] [id number] [place] [address] 43437- 5532 Mar, [facility] [id number] [place] [address] 22911- 3689 Feb, [facility] [id number] [place] [address] 69656- 6888 Jan, [facility] [id number] [place] [address] 29552- 7280 Jan, [facility] [id number] [place] [address] 84775- 5680 Jan, [facility] [id number] [place] [address] 14495- 4849 Dec, Diabetes 250.00 and COPD (chronic obstructive pulmonary disease) 496 [facility] [id number] [address]- 1086 Dec, [facility] [id number] [address]- 2682 Dec, [facility] [id number] [address]- 7815 Nov, [facility] [id number] [place] [address] 05299- 8819 Oct, Diabetes 250.00 [facility] [id number] [address]- 9485 Sep, [facility] [id number] [address]- 8828 Sep, [facility] [id number] [address]- 7921 Sep, [facility] [id number] [address]- 8911 Sep, Diabetes 250.00 [facility] [id number] [address]- 3149 Sep, [facility] [id number] [address]- 1366 Sep, [facility] [id number] [address]- 6354 August, Hypertension, essential, benign 401.1 ; Coronary atherosclerosis of [place] coronary artery 414.01 and Diabetic neuropathy associated with type 2 diabetes mellitus 250.60 [facility] [id number] [address]- 0810 Jul, [facility] [id number] [address]- 2909 Jul, [facility] [id number] [address]- 0687 Jul, [facility] [id number] [address]- 8100 Jun, [facility] [place] [facility] [address] [id number] [place] [address]- 4932 Jun, [facility] [place] [facility] [address] [id number] [place] [address]- 3005 Jun, [facility] [place] [facility] [address] [id number] [place] [address]- 3621 Jun, [facility] [place] [facility] [address] [id number] [place] [address]- 4303 Jun, [facility] [place] [facility] [address] [id number] [place] [address]- 1123 May, [facility] [place] [facility] [address] [facility] [id number] [place] [address]- 8135 May, [facility] [place] [facility] [address] [id number] [place] [address]- 5267 May, [facility] [place] [facility] [address] [id number] [place] [address]- 0182 May, [facility] [place] [facility] [address] [facility] [id number] [place] [address]- 7264 May, [facility] [place] [facility] [address] [facility] [id number] [place] [address]- 3994 May, [facility] [place] [facility] [address] [id number] [place] [address]- 6178 May, [facility] [place] [facility] [address] [id number] [place] [address]- 4191 Apr, [facility] [place] [facility] [address] [id number] [place] [address]- 9494 Apr, [facility] [place] [facility] [address] [id number] [place] [address]- 5693 Apr, [facility] [place] [facility] [address] [id number] [place] [address]- 3230 Apr, [facility] [place] [facility] [address] [id number] [place] [address]- 4303 Mar, [facility] [place] [facility] [address] [id number] [place] [address] Mar, [facility] [place] [facility] [address] [id number] [place] [address] Mar, [facility] [place] [facility] [address] [id number] [place] [address] Mar, [facility] [place] [facility] [address] [id number] [place] [address] Feb, [facility] [place] [facility] [address] [id number] [place] [address] Feb, [facility] [place] [facility] [address] [id number] [place] [address] Feb, [facility] [place] [facility] [address] [id number] [place] [address] Feb, [facility] [place] [facility] [address] [id number] [place] [address] Feb, [facility] [place] [facility] [address] [id number] [place] [address] Feb, [facility] [place] [facility] [address] [id number] [address] Feb, [facility] [place] [facility] [address] [id number] [address] Jan, [facility] [place] [facility] [address] [id number] [place] [address] Jan, [facility] [place] [facility] [address] [id number] [place] [address] Dec, [facility] [place] [facility] [address] [id number] [place] [address] Dec, [facility] [place] [facility] [address] [id number] [place] [address] 10 Dec, 2013 [facility] [place] [facility] [address] [id number] [place] [address] 10 Dec, 2013 [facility] [place] [facility] [address] [id number] [place] [address] 04 Dec, 2013 [facility] [place] [facility] [address] [id number] [place] [address] 04 Dec, 2013 [facility] [place] [facility] [address] [id number] [place] [address] Dec, 2013 [facility] [place] [facility] [address] [id number] [place] [address] Dec, [facility] [place] [facility] [address] [id number] [place] [address] Nov, [facility] [place] [facility] [address] [id number] [place] [address] Nov, [facility] [place] [facility] [address] [id number] [place] [address] Nov, [facility] [place] [facility] [address] [id number] [place] [address] Nov, [facility] [place] [facility] [address] [id number] [place] [address] Oct, [facility] [place] [facility] [address] [id number] [place] [address] Oct, [facility] [place] [facility] [address] [id number] [place] [address] Oct, [facility] [place] [facility] [address] [id number] [place] [address] Oct, [facility] [place] [facility] [address] [id number] [place] [address] Oct, [facility] [place] [facility] [address] [id number] [place] [address] Oct, [facility] [place] [facility] [address] [id number] [place] [address] Oct, [facility] [place] [facility] [address] [id number] [place] [address] Oct, [facility] [place] [facility] [address] [id number] [place] [address] Sep, [facility] [place] [facility] [address] [id number] [place] [address] Sep, [facility] [place] [facility] [address] [id number] [place] [address] August, [facility] [place] [facility] [address] [id number] [place] [address] August, [facility] [place] [facility] [address] [id number] [place] [address] Jul, [facility] [place] [facility] [address] [id number] [place] [address]- 2301 Jul, [facility] [place] [facility] [address] [id number] [place] [address] Jul, [facility] [place] [facility] [address] [id number] [place] [address] Jul, [facility] [place] [facility] [address] [id number] [place] [address]36 Jul, [facility] [place] [facility] [address] [id number] [place] [address] Jul, [facility] [place] [facility] [address] [id number] [place] [address] 2741 Jul, [facility] [place] [facility] [address] [id number] [place] [address] 95[address] Jul, [facility] [place] [facility] [address] [id number] [place] [address]62 Jun, [facility] [place] [facility] [address] [id number] [place] [address] 8[address] Jun, [facility] [address] [id number] [place] [address] 0681 Jun, [facility] [place] [facility] [address] [id number] [place] [address] Jun, [facility] [place] [facility] [address] [id number] [place] [address]32 18 May, 2013 [facility] [place] [facility] [address] [id number] [place] [address] 4445 May, [facility] [place] [facility] [address] [id number] [place] [address] Apr, [facility] [place] [facility] [address] [id number] [place] [address] 0684 Apr, [facility] [address] [id number] [place] [address] 4261 Mar, [facility] [place] [facility] [address] [id number] [place] [address]- 0097 Mar, [facility] [place] [facility] [address] [id number] [place] [address] 5386 Mar, [facility] [place] [facility] [address] [facility] [id number] [place] [address] 0880 Mar, [facility] [place] [facility] [address] [id number] [place] [address] 9004 Mar, [facility] [place] [facility] [address] [facility] [id number] [place] [address] 8010 Mar, [facility] [place] [facility] [address] [id number] [place] [address] 8774 Feb, [facility] [place] [facility] [address] [facility] [id number] [place] [address]- 6281 Feb, [facility] [place] [facility] [address] [facility] [id number] [place] [address] Feb, [facility] [place] [facility] [address] [id number] [place] [address] 2216 Feb, [facility] [place] [facility] [address] [id number] [place] [address]- 5296 Feb, [facility] [place] [facility] [address] [id number] [place] [address] 7653 18 Feb, 2013 [facility] [place] [facility] [address] [id number] [place] [address] 2174 Feb, [facility] [place] [facility] [address] [id number] [place] [address]- 1483 Feb, [facility] [place] [facility] [address] [id number] [place] [address] 8[address] 15 Jan, 2013 [facility] [place] [facility] [address] [id number] [place] [address]- [address]85 15 Jan, 2013 [facility] [place] [facility] [address] [id number] [place] [address]- 7699 14 Jan, 2013 [facility] [place] [facility] [address] [id number] [place] [address] 3913 14 Jan, 2013 [facility] [place] [facility] [address] [id number] [place] [address] 1869 18 Dec, 2012 [facility] [place] [facility] [address] [id number] [place] [address] 7370 13 Dec, 2012 [facility] [place] [facility] [address] [id number] [place] [address] 2012 [facility] [place] [facility] [address] [id number] [place] [address]- 9676 23 Nov, 2012 [facility] [place] [facility] [address] [id number] [place] [address] 4329 Nov, [facility] [place] [facility] [address] [id number] [place] [address]- 5254 16 Oct, 2012 [facility] [place] [facility] [address] [id number] [place] [address]- 0675 Oct, [facility] [address] [id number] [place] [address]- 4466 Oct, [facility] [place] [facility] [address] [id number] [place] [address] 5626 Sep, [facility] [place] [facility] [address] [id number] [place] [address] 2700 Sep, [facility] [place] [facility] [address] [id number] [place] [address]- 7358 Sep, [facility] [place] [facility] [address] [id number] [place] [address]- 2258 Sep, [facility] [place] [facility] [address] [id number] [place] [address]- 2164 Sep, [facility] [place] [facility] [address] [id number] [place] [address] 7495 Sep, [facility] [place] [facility] [address] [id number] [place] [address] 1627 August, [facility] [place] [facility] [address] [id number] [place] [address]- 0121 August, [facility] [place] [facility] [address] [id number] [place] [address]- 4006 August, [facility] [place] [facility] [address] [id number] [place] [address] 4459 August, [facility] [place] [facility] [address] [id number] [place] [address]- 2276 August, [facility] [place] [facility] [address] [id number] [place] [address] 9776 August, [facility] [place] [facility] [address] [id number] [place] [address]- 6514 August, [facility] [place] [facility] [address] [id number] [place] [address] 6025 Jul, [facility] [place] [facility] [address] [id number] [place] [address] 2746 Jul, [facility] [address] [id number] [place] [address] 5266 Jun, [facility] [address] [id number] [place] [address] 1196 Jun, [facility] [address] [id number] [place] [address] 0726 May, [facility] [address] [id number] [place] [address] 6924 May, [facility] [address] [id number] [place] [address] 8711 Apr, [facility] [address] [id number] [place] [address] 4157 Mar, [facility] [address] [id number] [place] [address] 5699 Mar, [facility] [address] [id number] [place] [address] 8003 Mar, [facility] [address] [id number] [place] [address]- 8769 Mar, [facility] [address] [facility] [id number] [place] [address]- 6729 Mar, [facility] [address] [id number] [place] [address] 2546 Mar, [facility] [address] [id number] [place] [address] 2540 Feb, [facility] [address] [id number] [place] [address]- 4676 Feb, [facility] [address] [id number] [place] [address] Feb, [facility] [address] [id number] [place] [address]- 9040 Feb, [facility] [place] [facility] [address] [id number] [place] [address]- 7333 Feb, [facility] [place] [facility] [address] [id number] [place] [address]- 2417 Feb, [facility] [place] [facility] [address] [id number] [place] [address] Feb, [facility] [place] [facility] [address] [id number] [place] [address]- 6469 Feb, [facility] [place] [facility] [address] [id number] [place] [address]- 0818 Jan, [facility] [place] [facility] [address] [id number] [place] [address]- 5853 Jan, [facility] [place] [facility] [address] [id number] [place] [address]- 1719 Dec, [facility] [place] [facility] [address] [id number] [address]- 8190 Dec, [facility] [place] [facility] [address] [id number] [place] [address]- 9263 Dec, [facility] [place] [facility] [address] [facility] [id number] [place] [address]- 8152 Dec, [facility] [place] [facility] [address] [facility] [id number] [place] [address]- 2453 Dec, [facility] [place] [facility] [address] [id number] [place] [address]- 7253 Nov, [facility] [place] [facility] [address] [id number] [place] [address]- 1855 Oct, [facility] [place] [facility] [address] [id number] [place] [address]- 9681 Oct, [facility] [place] [facility] [address] [facility] [id number] [place] [address]- 4549 Sep, [facility] [place] [facility] [address] [id number] [place] [address]- 1041 Sep, [facility] [place] [facility] [address] [id number] [place] [address]- 5992 Sep, [facility] [place] [facility] [address] [id number] [place] [address]- 7929 Sep, [facility] [place] [facility] [address] [id number] [place] [address]- 1541 Sep, [facility] [place] [facility] [address] [id number] [place] [address]- 9293 Sep, [facility] [place] [facility] [address] [id number] [place] [address]- 5846 Sep, [facility] [place] [facility] [address] [id number] [place] [address]- 6479 Sep, [facility] [place] [facility] [id number] [place] [address] 4335 August, [facility] [place] [facility] [address] [id number] [place] [address]- 4288 August, [facility] [place] [facility] [address] [id number] [place] [address]- 4407 August, [facility] [place] [facility] [address] [facility] [id number] [place] [address]- 6662 Jul, [facility] [place] [facility] [address] [id number] [place] [address]- 4269 Jul, [facility] [place] [facility] [address] [id number] [place] [address]- 5725 Jun, [facility] [place] [facility] [address] [id number] [place] [address]- 5882 Jun, [facility] [place] [facility] [address] [facility] [id number] [place] [address]- 8504 Jun, [facility] [place] [facility] [address] [facility] [id number] [place] [address]- 9833 Jun, [facility] [place] [facility] [address] [id number] [place] [address]- 9863 May, [facility] [place] [facility] [address] [id number] [place] [address]- 6264 May, [facility] [place] [facility] [address] [id number] [place] [address]- 3271 16 Apr, 2011 [facility] [place] [facility] [address] [id number] [place] [address]- 2732 Apr, [facility] [place] [facility] [address] [id number] [place] [address]- 0733 Apr, [facility] [place] [facility] [address] [id number] [place] [address]- 4379 Mar, [facility] [place] [facility] [address] [id number] [place] [address]- 9306 Mar, [facility] [place] [facility] [address] [id number] [place] [address]- 2231 Mar, [facility] [place] [facility] [address] [id number] [place] [address]- 7739 Feb, [facility] [place] [facility] [address] [id number] [place] [address]- 9637 Feb, [facility] [place] [facility] [address] [id number] [place] [address]- 0735 Feb, [facility] [place] [facility] [address] [id number] [place] [address]- 3067 Feb, [facility] [place] [facility] [address] [id number] [place] [address]- 2309 Jan, [facility] [place] [facility] [address] [id number] [place] [address]- 6823 Jan, [facility] [place] [facility] [address] [id number] [place] [address]- 7884 Jan, [facility] [place] [facility] [address] [id number] [place] [address]- 6715 Dec, [facility] [address] [id number] [address] 2543 Oct, [facility] [id number] [address]- 9326 Mar, [facility] [id number] [address] 2546 Feb, [facility] [id number] [address]- 2549 Feb, [facility] [id number] [address] 2546 May, [facility] [id number] [address] 2546 Apr, [facility] [id number] [address] 2546 Mar, [facility] [id number] [address]- 9734 Jan, [facility] [id number] [address]- 0652 Oct, [facility] [id number] [address] 2546 Jul, [facility] [address] [id number] [address] 2546 Mar, [facility] [address] [id number] [address] 2546 Feb, [facility] [address] [id number] [address]- 1186 Jan, IMMUNIZATIONS No Known Immunizations SOCIAL HISTORY Never Assessed REASON FOR VISIT Diabetes, PT [facility] Activity Details Follow Up 4 Weeks Reason:dm2 3mo. checkup VITAL SIGNS Height 71 in 2017-12-11 Weight 355 lbs 2017-12-11 Temperature 97.4 degrees Fahrenheit 2017-12-11 Heart Rate 86 bpm 2017-12-11 Respiratory Rate 18 2017-12-11 Oximetry on room air:97 % 2017-12-11 BMI 49.51 kg/m2 2017-12-11 Blood pressure systolic 142 mmHg 2017-12-11 Blood pressure diastolic 72 mmHg 2017-12-11 MEDICATIONS Medication Instructions Dosage Frequency Start Date End Date Duration Status Fish Oil 1200 MG Orally Once a day 2 capsule 24h Active GlipiZIDE 10 MG Orally 2 times a day 2 tablets 12h Active Lancets - as directed Oct, Active lidocaine topical 5 %(700 mg/patch) 3 PATCH by Topical route 1 time per day apply on bilateral wrist and left ankle 24h 14 Jan, 2013 Active Mupirocin 2 % APPLY TOPICALLY TO AFFECTED AREA TWICE DAILY 5 Active Tylenol Extra Strength 500 mg Orally 3 times a day 2 tablets 8h Active Furosemide 20 mg Orally Once a day 2 tablet in the AM and 1 tablet in PM 24h Active Amitriptyline HCl 75 MG Orally Once a day, at night. 1 tablet Not-Taking ProAir HFA 108 (90 Base) MCG/ACT Inhalation every 4 hrs 2 puffs as needed 4h Active potassium 2 tablets Active Vitamin B Complex Active Atorvastatin Calcium 40 MG Orally Once a day 1 tablet 24h Active Amitriptyline HCl 100 MG Orally Once a day, at night. 1 tablet Active Baclofen 20 mg Orally 2 times a day 1 tablet with food or milk 12h Sep, Jan, 30 day(s) Active Silver Sulfadiazine 1 % Externally Once a day 1 application to affected area 24h Apr, Apr, 30 days Active True Metrix Blood Glucose Test - once a day Active Glucometer as directed Oct, Active Lyrica 200 mg Orally Three times a day 1 capsule 8h 28 days Active Duloxetine HCl 60 MG Orally Once a day 1 capsule 24h 30 days Active Hydrochlorothiazide 25 MG TAKE ONE TABLET BY MOUTH ONCE DAILY 90 Active Metoprolol Tartrate 100 mg 1 tablet with food 12h Active Cialis 20 mg Orally Once a day 1 tablet 24h Oct, Active Trulicity 1.5 MG/0.5ML Subcutaneous once weekly Inject 0.5 ml Oct, 30 days Active Blood Glucose Test 1 1 test Jul, Active Diclofenac Sodium 75 MG Orally Twice a day 1 tablet with food or milk 12h Nov, May, 30 day(s) Active Polyethylene Glycol 3350 - Orally Once a day 1 packet mixed with 8 ounces of fluid 24h Nov, Jan, 30 day(s) Active Amitriptyline HCl 150 MG Orally Once a day, at night. 1 tablet Active Aspirin 325 MG Orally Once a day 1 tablet 24h Active Tamsulosin HCl 0.4 MG Orally Once a day 1 capsule 30 minutes after the same meal each day 24h Active Symbicort 160-4.5 MCG/ACT Inhalation Twice a day 2 puff 12h Feb, Active RESULTS No Results PROCEDURES No Known [...]
--- OUTSIDE RECORDS SUMMARY | 2018-07-05 12:25 | XMS REPORT ---
Author Author KATHYA FISCHER Organization [facility] Address [address] [place] [address] Care Team Providers Care Last Sawyer Name Role Phone KATHYA FISCHER Unavailable PROBLEMS Type Condition ICD9-CM Code CUQ79-UW Code Onset Dates Condition Status SNOMED Code Problem Arthritis M19.90 Active 8226115 Problem 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 Active 53539626 Problem Polyneuropathy G62.9 Active 47711439 Problem Other male erectile dysfunction N52.8 Active 634636256 Problem Constipation K59.00 Active 33641200 Problem Type 2 diabetes mellitus with 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 E11.65 Active 943973811 Problem Controlled type 2 diabetes mellitus without complication, without long -term current use of insulin E11.9 Active 285058287 Problem FPC current use of insulin Z79.4 Active 354938295 Problem Neuropathy G62.9 Active 143106109 Problem Obstructive sleep apnea G47.33 Active 26943894 Problem Hypertension, benign I10 Active 73398458 Problem Uncontrolled type 2 diabetes mellitus without complication, without long-term current use of insulin E11.65 Active 834572189 Problem Stress incontinence of urine N39.3 Active 88907396 Problem Fibromyalgia M79.7 Active [id number] ALLERGIES No Information ENCOUNTERS Encounter Location Date Diagnosis [place] [id number] [place] [address] 73304- 3463 Dec, [facility] [id number] [place] [address] 34431- 7860 Dec, Dizziness R42 [facility] [address] 19644- 9696 Dec, Dizziness R42 and Encounter for immunization Z23 [facility] [id number] [place] [address] 52038- 7285 Dec, Therapeutic drug monitoring Z51.81 and Controlled type 2 diabetes mellitus without complication, without long-term current use of insulin E11.9 [facility] [address] [address]- 1466 Dec, [facility] [id number] [place] [address] 49206- 0646 Dec, [facility] [id number] [place] [address] 69780- 9246 Dec, [facility] [id number] [place] [address] 20984- 6380 Nov, [facility] [id number] [place] [address] 52329- 6353 Nov, Therapeutic drug monitoring Z51.81 [facility] [id number] [place] [address] 05668- 6214 Nov, [facility] [id number] [place] [address] 82448- 5697 Nov, Therapeutic drug monitoring Z51.81 ; Fibromyalgia M79.7 and Controlled type 2 diabetes mellitus without complication, without long-term current use of insulin E11.9 [facility] [address] [place] [address] 14427- 4271 Nov, Type 2 diabetes mellitus with 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 E11.65 [facility] [address] [address]- 6663 Nov, [facility] [id number] [place] [address] 84659- 6330 Nov, [facility] [id number] [place] [address] 73490- 6373 Nov, Type 2 diabetes mellitus with 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 E11.65 [facility] [address] [place] [address] 65951- 2110 Nov, [facility] [address] [place] [address] 64494- 2005 Nov, [facility] [id number] [place] [address] 94710- 8421 Nov, Constipation K59.00 [facility] [address] [address]- 5299 Oct, Diabetes type 2, controlled E11.9 [facility] [address] [address]- 0883 Oct, Type 2 diabetes mellitus with 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 E11.65 ; 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 and Neuropathy G62.9 [facility] [address] [address]- 8704 Oct, [facility] [id number] [place] [address] 59494- 8507 Oct, [facility] [address] [address]- 2498 Oct, [facility] [address] [address]- 0912 Oct, [facility] [address] [address]- 1947 Oct, [facility] [address] [address]- 8243 Oct, [facility] [address] [address]- 0092 Oct, [facility] [address] [address]- 2502 Sep, [facility] [id number] [address]- 1364 Sep, Uncontrolled type 2 diabetes mellitus without complication, without long-term current use of insulin E11.65 [facility] [id number] [address]- 6393 Sep, Hypertension, benign I10 ; Fibromyalgia M79.7 ; Controlled type 2 diabetes mellitus without complication, without long-term current use of insulin E11.9 and Uncontrolled type 2 diabetes mellitus without complication, without long-term current use of insulin E11.65 [facility] [address] [address] 2546 Sep, [facility] [id number] [place] [address] 01245 2546 Sep, Uncontrolled type 2 diabetes mellitus without complication, without long-term current use of insulin E11.65 [facility] [id number] [place] [address] 01022 2546 Sep, [facility] [id number] [place] [address] 29609 2546 Sep, [facility] [id number] [place] [address] 29122 2540 Sep, Uncontrolled type 2 diabetes mellitus without complication, without long-term current use of insulin E11.65 and Fibromyalgia M79.7 [facility] [id number] [place] [address] 73957- 6236 August, [facility] [id number] [place] [address] 61236 2546 August, [facility] [id number] [place] [address] 98734 2546 August, [facility] [id number] [place] [address] 32668 2546 August, Fibromyalgia M79.7 [facility] [id number] [place] [address] 54465 2546 Jul, Hypertension, benign I10 [facility] [id number] [place] [address] 01700 2546 Jul, Fibromyalgia M79.7 [facility] [id number] [place] [address] 89273- 2546 Jul, [facility] [id number] [place] [address] 79030 2546 Jun, [facility] [id number] [place] [address] 90166- 4949 14 Jun, 2017 Hypertension, benign I10 ; Arthritis M19.90 ; 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 and Uncontrolled type 2 diabetes mellitus without complication, without long-term current use of insulin E11.65 [facility] [address] [address]47 06 Jun, 2017 Acute nasopharyngitis J00 and BMI 50.0-59.9, adult Z68.43 [facility] [id number] [place] [address] 72683- 9535 Jun, Fibromyalgia M79.7 [facility] [address] 87126- 3950 14 May, 2017 [facility] [id number] [place] [address] 74393- 0135 02 May, 2017 Fibromyalgia M79.7 [facility] [id number] [place] [address] 01671- 2167 Apr, Fibromyalgia M79.7 [facility] [id number] [place] [address] 51005- 8750 Apr, [facility] [id number] [place] [address] 61740- 3589 Apr, [facility] [id number] [place] [address] 99840- 6016 Apr, Arthritis M19.90 [facility] [id number] [place] [address] 35522- 4603 Apr, Arthritis M19.90 [facility] [id number] [place] [address] 32156- 0886 Apr, Arthritis M19.90 and Controlled type 2 diabetes mellitus without complication, without long-term current use of insulin E11.9 [facility] [id number] [place] [address] 22151- 6402 Apr, [facility] [address] [place] [address]- 5800 Apr, Fibromyalgia M79.7 [facility] [address] 16690- 9295 Mar, [facility] [id number] [place] [address] 59257- 7726 Mar, [facility] [address] 40921- 6779 Mar, Fibromyalgia M79.7 [facility] [id number] [place] [address] 74263- 8947 Feb, [facility] [address] 81944- 9991 Feb, [facility] [address] 99406- 6155 Feb, [facility] [address] 41325- 6158 Feb, Fibromyalgia M79.7 [facility] [id number] [place] [address] 89505- 0324 Feb, Diabetes type 2, uncontrolled E11.65 and Encounter for immunization Z23 [facility] [id number] [place] [address] 51279- 2920 Jan, [facility] [id number] [place] [address] 81449- 3881 Jan, Fibromyalgia M79.7 [facility] [id number] [place] [address] 10845- 9040 Dec, [facility] [address] 27385- 8029 Dec, Fibromyalgia M79.7 [facility] [id number] [place] [address] 33656- 9676 Nov, [facility] [id number] [place] [address] 68225- 4877 Nov, [facility] [address] [address]- 8012 Nov, 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 and Polyneuropathy G62.9 [facility] [id number] [address]- 4871 Nov, [facility] [id number] [place] [address] 81978- 5118 Nov, [facility] [id number] [place] [address] 87564- 8330 Oct, Diabetes type 2, uncontrolled E11.65 [facility] [id number] [place] [address] 64200- 5593 Oct, Diabetes type 2, uncontrolled E11.65 ; Polyneuropathy G62.9 and Pain in right wrist M25.531 [facility] [id number] [place] [address] 38157- 6433 Oct, [facility] [id number] [place] [address] 82289- 8335 Oct, Pain in left shoulder M25.512 [facility] [id number] [place] [address] 85526- 5427 Sep, [facility] [id number] [place] [address] 87278- 4855 Sep, Pain in left shoulder M25.512 [facility] [address] [place] [address] 82723- 5884 Sep, [facility] [id number] [place] [address] 37293- 9692 August, Pain in left shoulder M25.512 [facility] [id number] [place] [address] 61486- 7797 Jul, [facility] [address] [address]- 3801 Jul, [facility] [id number] [address]- 6497 Jul, Pain in left shoulder M25.512 [facility] [id number] [place] [address] 85069- 6742 Jun, [facility] [id number] [place] [address] 97517- 9048 Jun, [facility] [id number] [place] [address] 73643- 6992 Jun, Diabetes type 2, uncontrolled E11.65 ; Fibromyalgia M79.7 and Arthritis M19.90 [facility] [id number] [place] [address] 44136- 3769 Jun, Pain in left shoulder M25.512 [facility] [id number] [place] [address] 82895- 6484 May, [facility] [id number] [place] [address] 05244- 9216 May, Diabetes type 2, controlled E11.9 [facility] [id number] [place] [address] 51998- 5168 May, [facility] [id number] [place] [address] 24452- 9077 May, Uncontrolled type 2 diabetes mellitus without complication, without long-term current use of insulin E11.65 [facility] [address] [place] [address] 76789- 1922 May, Pain in left shoulder M25.512 [facility] [address] [place] [address] 65371- 3155 May, Diabetes type 2, controlled E11.9 and Uncontrolled type 2 diabetes mellitus without complication, without long-term current use of insulin E11.65 [facility] [address] [address]- 1253 Apr, [facility] [id number] [place] [address] 59781- 6221 Apr, [facility] [address] [id number] [place] [address]- 5755 Mar, [facility] [address] [id number] [place] [address]- 7314 Mar, [facility] [address] [id number] [place] [address]- 7719 Mar, [facility] [address] [id number] [place] [address]- 3450 Feb, [facility] [address] [id number] [place] [id number] Feb, Dental examination Z01.20 [facility] [address] [id number] [place] [address]- 9893 Jan, [facility] [address] [place] [address], [place] [address]- 9405 14 Dec, 2015 [facility] [address] [id number] [place] [address] 2548 Dec, [facility] [id number] [place] [address], [place] [address]- 3358 Dec, [facility] [id number] [place] [address]- 4695 Dec, Diabetes type 2, controlled E11.9 [facility] [address] [id number] [place] [address]- 3005 Nov, [facility] [address] [id number] [address]- 2543 Nov, [facility] [address] [id number] [place] [address]- 2533 Nov, [facility] [address] [facility] [id number] [place] [address]- 2542 Nov, [facility] [address] [facility] [id number] [place] [address]- 1512 Oct, [facility] [address] [facility] [id number] [place] [address]- 0759 Oct, [facility] [address] [place] [address]- 2323 Oct, [facility] [address] [place] [address]- 3054 Sep, [facility] [id number] [place] [address], [place] [address]- 2266 Sep, Diabetes type 2, controlled E11.9 [facility] [id number] [place] [address], [place] [address]- 1454 Sep, Diabetes type 2, controlled E11.9 [facility] [id number] [place] [address]- 0084 August, [facility] [id number] [place] [address], [place] [address]- 3736 August, [facility] [address] [place] [address]- 0542 August, Type 2 diabetes mellitus without complication E11.9 and Pain in left shoulder M25.512 [facility] [address] [place] [address]- 6888 Jul, [facility] [address] [address]- 1954 Jul, Diabetes type 2, controlled E11.9 and Hypertension, benign I10 [facility] [address] [place] [address]- 7310 Jun, [facility] [id number] [place] [address]- 0686 Jun, [facility] [address] [place] [address]- 8977 Jun, Diabetes 250.00 [facility] [address] [place] [address]- 9728 Jun, [facility] [address] [address]- 6173 May, Diabetes type 2, uncontrolled E11.65 [facility] [id number] [place] [address] 114538- 4785 May, [facility] [id number] [place] [address] 41736- 8431 Apr, Type 2 diabetes mellitus without complication E11.9 [facility] [id number] [place] [address] 73320- 5509 Apr, Encounter for immunization Z23 [facility] [address] 45927- 3477 Apr, [facility] [id number] [place] [address] 50469- 9289 Mar, [facility] [id number] [place] [address] 26726- 2262 Mar, [facility] [id number] [place] [address] 96987- 0658 Mar, [facility] [id number] [place] [address] 92301- 6963 Feb, [facility] [id number] [place] [address] 38923- 6571 Jan, [facility] [id number] [place] [address] 72047- 4787 Jan, [facility] [id number] [place] [address] 52830- 9969 Jan, [facility] [id number] [place] [address] 46885- 0333 Dec, Diabetes 250.00 and COPD (chronic obstructive pulmonary disease) 496 [facility] [id number] [place] [address] 88249- 8226 Dec, [facility] [address] [address]- 5933 Dec, [facility] [address] [address]- 7438 Nov, [facility] [address] 4974 Oct, Diabetes 250.00 [facility] [id number] [place] [address] 144321- 4830 Sep, [facility] [id number] [place] [address] 53105- 5359 Sep, [facility] [id number] [place] [address] 44930- 0561 Sep, [facility] [id number] [place] [address] 47904- 0262 Sep, Diabetes 250.00 [facility] [id number] [place] [address] 51458- 0731 Sep, [facility] [id number] [address] Sep, [facility] [id number] [place] [address] 18057- 5316 August, Hypertension, essential, benign 401.1 ; Coronary atherosclerosis of poarch coronary artery 414.01 and Diabetic neuropathy associated with type 2 diabetes mellitus 250.60 [facility] [id number] [address] Jul, [facility] [id number] [address] Jul, [facility] [id number] [id number] Jul, [facility] [id number] [address] Jun, [facility] [id number] [place] [address] 46665- 4276 Jun, [facility] [place] [facility] [address] [id number] [place] [address] Jun, [facility] [place] [facility] [address] [id number] [place] [address] 8983 Jun, [facility] [place] [facility] [address] [facility] [id number] [place] [address]- 8471 Jun, [facility] [place] [facility] [address] [id number] [place] [address]- 6104 May, 2014 [facility] [place] [facility] [address] [id number] [place] [address]- [address]443 May, [facility] [place] [facility] [address] [facility] [id number] [place] [address]- 2425 May, [facility] [place] [facility] [address] [facility] [id number] [place] [address]- 2438 May, [facility] [place] [facility] [address] [facility] [id number] [place] [address]- 8826 May, [facility] [place] [facility] [address] [facility] [id number] [place] [address]- 1068 May, [facility] [place] [facility] [address] [facility] [facility] [id number] [place] [address] May, [facility] [place] [facility] [address] [facility] [id number] [place] [address] 8055 Apr, [facility] [place] [facility] [address] [facility] [id number] [place] [address] 7201 Apr, [facility] [place] [facility] [address] [id number] [place] [address] 8131 Apr, [facility] [place] [facility] [address] [facility] [id number] [place] [address] 7592 Apr, [facility] [place] [facility] [address] [facility] [id number] [address] Mar, [facility] [place] [facility] [address] [id number] [place] [address] 6039 Mar, [facility] [place] [facility] [address] [id number] [place] [address] 2202 Mar, [facility] [place] [facility] [address] [id number] [place] [address] Mar, [facility] [place] [facility] [address] [id number] [place] [address] 0733 Feb, [facility] [place] [facility] [address] [id number] [place] [address] 1978 Feb, [facility] [place] [facility] [address] [id number] [place] [address]- 4997 Feb, [facility] [place] [facility] [address] [id number] [place] [address]- 7430 Feb, [facility] [place] [facility] [address] [id number] [place] [address]- 0411 Feb, [facility] [place] [facility] [address] [id number] [place] [address]- 6523 Feb, [facility] [place] [facility] [address] [id number] [place] [address]- 9872 Feb, [facility] [place] [facility] [address] [id number] [place] [address]- 2537 Jan, [facility] [place] [facility] [address] [id number] [place] [address]- 9793 Jan, [facility] [place] [facility] [address] [id number] [place] [address]- 4139 Dec, [facility] [place] [facility] [address] [id number] [place] [address]- 4161 Dec, [facility] [place] [facility] [address] [id number] [place] [address]- 7810 Dec, [facility] [place] [facility] [address] [id number] [place] [address]- 1110 10 Dec, 2013 [facility] [place] [facility] [address] [id number] [place] [address]- 9477 04 Dec, 2013 [facility] [place] [facility] [address] [id number] [place] [address]- 9239 Dec, [facility] [place] [facility] [address] [id number] [place] [address]- 4679 Dec, [facility] [place] [facility] [address] [id number] [place] [address]- 2278 Dec, [facility] [place] [facility] [address] [id number] [place] [address]- 4455 Nov, [facility] [place] [facility] [address] [id number] [place] [address]- 4885 Nov, [facility] [place] [facility] [address] [id number] [place] [address]- 4648 Nov, [facility] [place] [facility] [address] [id number] [place] [address]- 3206 Nov, [facility] [place] [facility] [address] [id number] [place] [address]- 0685 Oct, [facility] [place] [facility] [address] [id number] [place] [address]- 0013 Oct, [facility] [place] [facility] [address] [id number] [place] [address]- 0030 Oct, [facility] [place] [facility] [address] [id number] [place] [address]- 0392 Oct, [facility] [place] [facility] [address] [id number] [place] [address]- 0683 Oct, [facility] [place] [facility] [address] [id number] [place] [address]- 2097 Oct, [facility] [place] [facility] [address] [id number] [place] [address]- 5768 Oct, [facility] [place] [facility] [address] [id number] [place] [address]- 3211 Oct, [facility] [address] [id number] [place] [address]- 8131 Sep, [facility] [place] [facility] [address] [id number] [place] [address]- 1266 Sep, [facility] [address] [id number] [place] [address]- 9120 August, [facility] [place] [facility] [address] [id number] [place] [address]- 5580 August, [facility] [address] [id number] [place] [address]- 8523 Jul, [facility] [address] [id number] [place] [address]- 9683 Jul, [facility] [address] [id number] [place] [address]- 2114 Jul, [facility] [address] [id number] [place] [address]- 5561 Jul, [facility] [address] [id number] [place] [address]- 9632 Jul, [facility] [address] [id number] [place] [address]- 3198 Jul, [facility] [place] [facility] [address] [id number] [place] [address]- 4791 Jul, [facility] [place] [facility] [address] [id number] [place] [address]- 2443 Jul, [facility] [place] [facility] [address] [id number] [place] [address]- 1359 Jun, [facility] [place] [facility] [address] [id number] [place] [address]- 5834 Jun, [facility] [place] [facility] [address] [id number] [place] [address]- 0018 Jun, [facility] [place] [facility] [address] [id number] [place] [address]- 7220 Jun, [facility] [place] [facility] [address] [id number] [place] [address]- 6187 18 May, 2013 [facility] [place] [facility] [address] [id number] [place] [address]- 2671 May, [facility] [place] [facility] [address] [id number] [place] [address]- 9201 Apr, [facility] [place] [facility] [address] [id number] [place] [address]- 7409 Apr, [facility] [place] [facility] [address] [id number] [place] [address]- 0479 Mar, [facility] [place] [facility] [address] [id number] [place] [address]- 4572 Mar, [facility] [place] [facility] [address] [id number] [place] [address]- 3062 Mar, [facility] [place] [facility] [address] [id number] [place] [address]- 6891 Mar, [facility] [place] [facility] [address] [id number] [place] [address]- 5756 Mar, [facility] [place] [facility] [address] [id number] [place] [address]- 1057 Mar, [facility] [place] [facility] [address] [id number] [place] [address]- 2568 Feb, [facility] [place] [facility] [address] [id number] [place] [address]- 2172 Feb, [facility] [place] [facility] [address] [id number] [place] [address]- 4937 Feb, [facility] [place] [facility] [address] [id number] [place] [address]- 9477 Feb, [facility] [place] [facility] [address] [id number] [place] [address]- 7751 18 Feb, 2013 [facility] [place] [facility] [address] [id number] [place] [address]- 6457 18 Feb, 2013 [facility] [place] [facility] [address] [id number] [place] [address]- 8734 Feb, [facility] [place] [facility] [address] [facility] [id number] [place] [address]- 3744 Feb, [facility] [place] [facility] [address] [id number] [place] [address]- 6826 15 Jan, 2013 [facility] [place] [facility] [address] [id number] [place] [address]- 5633 15 Jan, 2013 [facility] [place] [facility] [address] [id number] [place] [address]- 7921 14 Jan, 2013 [facility] [place] [facility] [address] [facility] [id number] [place] [address]- 3064 14 Jan, 2013 [facility] [place] [facility] [address] [id number] [place] [address]- 8555 18 Dec, 2012 [facility] [place] [facility] [address] [facility] [id number] [place] [address]- 0098 Dec, [facility] [place] [facility] [address] [facility] [id number] [place] [address]- 3103 2012 [facility] [place] [facility] [address] [id number] [place] [address]- 0597 Nov, [facility] [place] [facility] [address] [id number] [place] [address]- 4490 Nov, [facility] [place] [facility] [address] [id number] [place] [address]- 9003 Oct, [facility] [place] [facility] [address] [facility] [id number] [place] [address]- 0154 Oct, [facility] [place] [facility] [address] [facility] [id number] [place] [address]- 1258 Oct, [facility] [place] [facility] [address] [id number] [place] [address]- 9389 28 Sep, 2012 [facility] [place] [facility] [address] [id number] [place] [address]- 2125 Sep, [facility] [place] [facility] [address] [id number] [place] [address]- 8290 Sep, [facility] [place] [facility] [address] [id number] [place] [address]- 3676 Sep, [facility] [place] [facility] [address] [id number] [place] [address]- 8064 Sep, [facility] [place] [facility] [address] [id number] [place] [address]- 4250 Sep, [facility] [place] [facility] [address] [id number] [place] [address]- 0549 August, [facility] [place] [facility] [address] [id number] [place] [address]- 5408 August, [facility] [place] [facility] [address] [id number] [place] [address]- 6347 August, [facility] [place] [facility] [address] [id number] [place] [address]- 9201 August, [facility] [place] [facility] [address] [id number] [place] [address]- 8240 August, [facility] [place] [facility] [address] [id number] [place] [address]- 8421 August, [facility] [place] [facility] [address] [id number] [place] [address]- 7336 August, [facility] [place] [facility] [address] [id number] [place] [address]- 5950 Jul, [facility] [place] [facility] [address] [id number] [place] [address]- 1714 Jul, [facility] [place] [facility] [address] [id number] [place] [address]- 9521 Jun, [facility] [place] [facility] [address] [id number] [place] [address]- 9391 Jun, [facility] [place] [facility] [address] [id number] [place] [address]- 3606 May, [facility] [place] [facility] [address] [facility] [id number] [place] [address] May, [facility] [place] [facility] [address] [id number] [place] [address]- 3948 Apr, [facility] [place] [facility] [address] [id number] [place] [address]- 4825 Mar, [facility] [place] [facility] [address] [id number] [place] [address]- 8424 Mar, [facility] [place] [facility] [address] [id number] [place] [address]- 4067 Mar, [facility] [place] [facility] [address] [id number] [place] [address]- 7320 Mar, [facility] [place] [facility] [address] [facility] [id number] [place] [address]- 5407 Mar, [facility] [place] [facility] [address] [facility] [id number] [place] [address]- 3389 Mar, [facility] [place] [facility] [address] [id number] [place] [address]- 3499 Feb, [facility] [place] [facility] [address] [id number] [place] [address]- 9045 Feb, [facility] [place] [facility] [address] [id number] [place] [address]- 4706 Feb, [facility] [place] [facility] [address] [facility] [id number] [place] [address]- 5045 Feb, [facility] [place] [facility] [address] [facility] [id number] [place] [address]- 4896 Feb, [facility] [place] [facility] [address] [facility] [id number] [place] [address]- 9291 Feb, [facility] [address] [id number] [place] [address]- 3191 Feb, [facility] [place] [facility] [address] [id number] [place] [address]- 0539 Feb, [facility] [place] [facility] [address] [id number] [place] [address]- 4537 Jan, [facility] [place] [facility] [address] [id number] [place] [address]- 0157 Jan, [facility] [place] [facility] [address] [id number] [place] [address]- 7317 28 Dec, 2011 [facility] [place] [facility] [address] [id number] [place] [address]- 5240 Dec, [facility] [place] [facility] [address] [id number] [place] [address]- 7721 Dec, [facility] [place] [facility] [address] [id number] [place] [address]- 4001 Dec, [facility] [place] [facility] [address] [id number] [place] [address]- 9245 Dec, [facility] [place] [facility] [address] [facility] [id number] [place] [address]- 0982 Nov, [facility] [place] [facility] [address] [id number] [place] [address]- 0052 Oct, [facility] [place] [facility] [address] [id number] [place] [address]- 8137 Oct, [facility] [place] [facility] [address] [id number] [place] [address]- 0732 Sep, [facility] [place] [facility] [address] [id number] [place] [address]- 0478 Sep, [facility] [place] [facility] [address] [id number] [place] [address]- 8270 Sep, [facility] [place] [facility] [address] [id number] [place] [address]- 8899 Sep, [facility] [place] [facility] [address] [id number] [place] [address]- 1707 Sep, [facility] [place] [facility] [address] [id number] [place] [address]- 7331 Sep, [facility] [place] [facility] [address] [id number] [place] [address]- 8233 Sep, [facility] [place] [facility] [address] [id number] [place] [address]- 9712 Sep, [facility] [place] [facility] [address] [id number] [place] [address]- 4787 August, [facility] [place] [facility] [address] [id number] [place] [address]- 7652 August, [facility] [place] [facility] [address] [id number] [place] [address]- 0636 August, [facility] [place] [facility] [address] [id number] [place] [address]- 0135 Jul, [facility] [place] [facility] [address] [id number] [place] [address]- 5132 Jul, [facility] [place] [facility] [address] [id number] [place] [address]- 6612 Jun, [facility] [place] [facility] [address] [id number] [place] [address]- 2063 Jun, [facility] [place] [facility] [address] [id number] [place] [address]- 7049 Jun, [facility] [place] [facility] [address] [id number] [place] [address]- 7977 Jun, [facility] [place] [facility] [address] [id number] [place] [address]- 9820 May, [facility] [place] [facility] [address] [id number] [place] [address]- 8481 May, [facility] [address] [id number] [place] [address]- 1913 Apr, [facility] [place] [facility] [address] [id number] [place] [address]- 1117 Apr, [facility] [place] [facility] [address] [facility] [id number] [place] [address]- 5832 Apr, [facility] [place] [facility] [address] [id number] [place] [address]- 9367 Mar, [facility] [place] [facility] [address] [id number] [place] [address], [place] [address]- 5902 Mar, [facility] [place] [facility] [address] [facility] [id number] [place] [address]- 7453 Mar, [facility] [address] [facility] [id number] [place] [address]- 6924 Feb, [facility] [place] [facility] [address] [facility] [id number] [place] [address]- 2101 Feb, [facility] [place] [facility] [address] [facility] [id number] [place] [address]- 8360 Feb, [facility] [place] [facility] [address] [facility] [id number] [place] [address]- 4899 Feb, [facility] [place] [facility] [address] [facility] [id number] [place] [address]- 3731 Jan, [facility] [place] [facility] [address] [id number] [place] [address]- 1167 Jan, [facility] [place] [facility] [address] [id number] [place] [address]- 9836 Jan, [facility] [place] [facility] [address] [facility] [id number] [place] [address]- 0498 16 Dec, 2010 [facility] [place] [facility] [address] [facility] [id number] [place] [address]- 5292 Oct, [facility] [place] [facility] [id number] [address]- 6994 Mar, [facility] [place] [id number] 4119 Feb, [facility] [place] [id number] [address]- 7783 Feb, [facility] [place] [id number] 9607 May, [facility] [place] [id number] [address]- 4502 Apr, [facility] [place] [id number] [place] [address]- 1210 Mar, [facility] [place] [id number] [place] [address] 504933- 8914 Jan, [facility] [place] [address] [id number] [place] [address] 80408- 9680 Oct, [facility] [place] [id number] [place] [address] 456130- 8600 Jul, [facility] [place] [id number] 3273 Mar, [facility] [place] [id number] [address]- 0542 Feb, [facility] [place] [id number] [address] Jan, IMMUNIZATIONS No Known Immunizations SOCIAL HISTORY Never Assessed REASON FOR VISIT [facility]den[facility] PLAN OF CARE VITAL SIGNS MEDICATIONS Medication Instructions Dosage Frequency Start Date End Date Duration Status Victoza 18 MG/3ML Subcutaneous Once a day inject 1.8mg 24h Nov, Jan, 30 days Active RESULTS No Results PROCEDURES [...]
--- OUTSIDE RECORDS SUMMARY | 2018-07-05 12:26 | XMS REPORT ---
Author Author KATHYA FISCHER Organization [facility] Address [address] [place] [address] Care Team Providers Care Manager Clinical Informatics Name Role Phone KATHYA FISCHER Unavailable PROBLEMS Type Condition ICD9-CM Code ZEF82-BW Code Onset Dates Condition Status SNOMED Code Problem Arthritis M19.90 Active 4517122 Problem 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 Active 49700159 Problem Polyneuropathy G62.9 Active 62249034 Problem Other male erectile dysfunction N52.8 Active 568083513 Problem Constipation K59.00 Active 62033611 Problem Type 2 diabetes mellitus with 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 E11.65 Active 574063116 Problem Controlled type 2 diabetes mellitus without complication, without long -term current use of insulin E11.9 Active 612848877 Problem long-term current use of insulin Z79.4 Active 383272999 Problem Neuropathy G62.9 Active 129964782 Problem Obstructive sleep apnea G47.33 Active 72247972 Problem Hypertension, benign I10 Active 93898278 Problem Uncontrolled type 2 diabetes mellitus without complication, without long-term current use of insulin E11.65 Active 473003295 Problem Stress incontinence of urine N39.3 Active 24819086 Problem Fibromyalgia M79.7 Active 562255291 ALLERGIES No Information ENCOUNTERS Encounter Location Date Diagnosis [facility] [id number] [place] [address] 77148- 2481 Dec, [facility] [id number] [place] [address] 56059- 7996 Dec, [facility] [id number] [place] [address] 23727- 4176 Dec, [facility] [id number] [place] [address] 73065- 4469 Dec, [facility] [id number] [place] [address] 68796- 6589 Nov, [facility] [id number] [place] [address] 44053- 5280 Nov, Therapeutic drug monitoring Z51.81 [facility] [id number] [place] [address] 56136- 0833 Nov, [facility] [id number] [place] [address] 29993- 7086 Nov, Therapeutic drug monitoring Z51.81 ; Fibromyalgia M79.7 and Controlled type 2 diabetes mellitus without complication, without long-term current use of insulin E11.9 [facility] [id number] [place] [address] 49657- 5051 Nov, Type 2 diabetes mellitus with 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 E11.65 [facility] [id number] [place] [address] 50044- 1359 Nov, [facility] [id number] [place] [address] 98330- 5581 Nov, [facility] [id number] [place] [address] 83676- 2015 Nov, Type 2 diabetes mellitus with 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 E11.65 [facility] [id number] [place] [address] 97552- 9997 Nov, [facility] [id number] [place] [address] 43822- 0288 Nov, [facility] [id number] [place] [address] 33244- 0164 Nov, Constipation K59.00 [facility] [id number] [place] [address] 16371- 5798 Oct, Diabetes type 2, controlled E11.9 [facility] [id number] [place] [address] 45040- 1074 Oct, Type 2 diabetes mellitus with 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 E11.65 ; 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 and Neuropathy G62.9 [facility] [id number] [place] [address] 53184- 7198 Oct, [facility] [address] [address]- 3613 Oct, [facility] [address] 7329 Oct, [facility] [address] [address]- 4528 Oct, [facility] [address] 7514 Oct, [facility] [address] [address]- 8697 Oct, [facility] [address] 2358 Oct, [facility] [address] [address]- 4202 Sep, [facility] [address] [address]- 5870 Sep, Uncontrolled type 2 diabetes mellitus without complication, without long-term current use of insulin E11.65 [facility] [address] [address]- 1245 Sep, Hypertension, benign I10 ; Fibromyalgia M79.7 ; Controlled type 2 diabetes mellitus without complication, without long-term current use of insulin E11.9 and Uncontrolled type 2 diabetes mellitus without complication, without long-term current use of insulin E11.65 [facility] [address] [address]- 5408 Sep, [facility] [address] [address]- 1966 Sep, Uncontrolled type 2 diabetes mellitus without complication, without long-term current use of insulin E11.65 [facility] [address] [address]- 9663 Sep, [facility] [id number] [place] [address] 83210- 8842 Sep, [facility] [id number] [place] [address] 06711- 5243 Sep, Uncontrolled type 2 diabetes mellitus without complication, without long-term current use of insulin E11.65 and Fibromyalgia M79.7 [facility] [address] 85263- 9532 August, [facility] [address] 56775- 7788 August, [facility] [address] 26215- 9602 August, [place] [address] 58125- 7328 August, Fibromyalgia M79.7 [facility] [address] 18364- 1913 Jul, Hypertension, benign I10 [facility] [address] 94781- 2156 Jul, Fibromyalgia M79.7 [facility] [id number] [place] [address] 59656- 8776 Jul, [facility] [id number] [place] [address] 91899- 6922 Jun, [facility] [id number] [place] [address] 04263- 8991 Jun, Hypertension, benign I10 ; Arthritis M19.90 ; long-term current use 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 Z79.891 and Uncontrolled type 2 diabetes mellitus without complication, without long-term current use of insulin E11.65 [facility] [id number] [place] [address] 84479 -1391 Jun, Acute nasopharyngitis J00 and BMI 50.0-59.9, adult Z68.43 [facility] [address] 39046- 6694 Jun, Fibromyalgia M79.7 [facility] [id number] [place] [address] 03475- 4256 May, [facility] [id number] [place] [address] 58756- 7606 May, Fibromyalgia M79.7 [facility] [id number] [place] [address] 28978- 5286 Apr, Fibromyalgia M79.7 [facility] [id number] [place] [address] 57802- 1533 Apr, [facility] [id number] [place] [address] 26339- 3672 Apr, [facility] [id number] [place] [address] 16046- 6013 Apr, Arthritis M19.90 [facility] [id number] [place] [address] 89441- 7726 Apr, Arthritis M19.90 [facility] [id number] [place] [address] 71567- 0909 Apr, Arthritis M19.90 and Controlled type 2 diabetes mellitus without complication, without long-term current use of insulin E11.9 [facility] [id number] [place] [address] 79652- 1255 Apr, [facility] [id number] [place] [address] 01279 2546 Apr, Fibromyalgia M79.7 [facility] [address], [place] [address]- 9416 Mar, [facility] [id number] [place] [address] 28317 2546 Mar, [facility] [id number] [place] [address] 54462- 1738 Mar, Fibromyalgia M79.7 [facility] [id number] [place] [address] 13542- 7683 Feb, [facility] [id number] [place] [address] 65208- 7640 Feb, [facility] [id number] [place] [address] 81666- 3981 Feb, [facility] [address] 07306- 7774 Feb, Fibromyalgia M79.7 [facility] [id number] [place] [address] 04664- 4274 Feb, Diabetes type 2, uncontrolled E11.65 and Encounter for immunization Z23 [facility] [id number] [place] [address] 12348- 7066 Jan, [facility] [address] 01112- 0423 Jan, Fibromyalgia M79.7 [facility] [id number] [place] [address] 21193- 8740 Dec, [facility] [id number] [place] [address] 17016- 9716 Dec, Fibromyalgia M79.7 [facility] [id number] [place] [address] 44685- 1822 Nov, [facility] [id number] [place] [address] 03384- 8240 Nov, [facility] [id number] [place] [address] 89032- 5079 Nov, 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 and Polyneuropathy G62.9 [facility] [id number] [place] [address] 02486- 2023 Nov, [facility] [id number] [place] [address] 26007- 9304 Nov, [facility] [id number] [place] [address] 44628- 3590 Oct, Diabetes type 2, uncontrolled E11.65 [facility] [id number] [address]- 5680 Oct, Diabetes type 2, uncontrolled E11.65 ; Polyneuropathy G62.9 and Pain in right wrist M25.531 [facility] [id number] [place] [address] 65079- 1286 Oct, [facility] [id number] [place] [address] 46056- 3982 Oct, Pain in left shoulder M25.512 [facility] [id number] [place] [address] 12682- 0083 Sep, [facility] [id number] [place] [address] 99050- 7021 Sep, Pain in left shoulder M25.512 [facility] [id number] [place] [address] 28374- 1732 Sep, [facility] [id number] [place] [address] 16974- 8501 August, Pain in left shoulder M25.512 [facility] [id number] [address]- 5218 Jul, [facility] [id number] [address]- 3634 Jul, [facility] [id number] [place] [address] 80049- 1767 Jul, Pain in left shoulder M25.512 [facility] [id number] [address]- 3636 Jun, [facility] [id number] [place] [address] 67190473- 8056 Jun, [facility] [address], [place] [address]- 3588 Jun, Diabetes type 2, uncontrolled E11.65 ; Fibromyalgia M79.7 and Arthritis M19.90 [facility] [address], [place] [address] 2546 Jun, Pain in left shoulder M25.512 [facility] [address] [address] 2546 May, [facility] [id number] [place] [address] 04510- 7506 May, Diabetes type 2, controlled E11.9 [facility] [id number] [place] [address] 06990 2546 17 May, 2016 [facility] [id number] [place] [address] 41060 2546 May, Uncontrolled type 2 diabetes mellitus without complication, without long-term current use of insulin E11.65 [facility] [id number] [place] [address] 32724- 5636 May, Pain in left shoulder M25.512 [facility] [address], [place] [address]- 6803 May, Diabetes type 2, controlled E11.9 and Uncontrolled type 2 diabetes mellitus without complication, without long-term current use of insulin E11.65 [facility] [address], [place] [address]- 6405 Apr, [facility] [address], [place] [address] 2546 Apr, [facility] [address] [address] 2546 Mar, [facility] [id number] [place] [address] 79413 2546 Mar, [facility] [address], [place] [address] 2546 Mar, [facility] [id number] [place] [address] 16241- 0681 Feb, [facility] [address] [id number] [place] [id number] Feb, Dental examination Z01.20 [facility] [address] [id number] [place] [address]- 6332 Jan, [facility] [address] [facility] [id number] [place] [address]- 7317 Dec, [facility] [address] [id number] [place] [address]- 1719 Dec, [facility] [address] [id number] [place] [address]- 8859 Dec, [facility] [address] [facility] [id number] [place] [address]- 4860 Dec, Diabetes type 2, controlled E11.9 [facility] [address] [facility] [id number] [place] [address]- 7613 Nov, [facility] [address] [id number] [place] [address]- 7396 Nov, [facility] [id number] [place] [address]- 1704 Nov, [facility] [address] [facility] [id number] [place] [address]- 0298 Nov, [facility] [id number] [place] [address]- 5004 Oct, [facility] [address] [facility] [id number], [place] [address]- 7581 Oct, [facility] [address] [facility]] [id number], [place] [address]- 7880 Oct, [facility] [address] [facility] 2] [id number], [place] [address]- 0549 Sep, [facility] [address] [facility] 2] [id number], [place] [address]- 5966 Sep, Diabetes type 2, controlled E11.9 [facility] [address], [place] [address]- 1128 Sep, Diabetes type 2, controlled E11.9 [facility] [id number] [place] [address] 44822- 4917 August, [facility] [id number] [place] [address] 67537- 6278 August, [facility] [id number] [place] [address] 67086- 4170 August, Type 2 diabetes mellitus without complication E11.9 and Pain in left shoulder M25.512 [facility] [id number] [place] [address] 55886- 1530 Jul, [facility] [id number] [place] [address] 41648- 0507 Jul, Diabetes type 2, controlled E11.9 and Hypertension, benign I10 [facility] [address] [address]- 0872 Jun, [facility] [id number] [place] [address] 87244- 3225 Jun, [facility] [id number] [place] [address] 94220- 6688 Jun, Diabetes 250.00 [facility] [address] [place] [address] 04085- 8376 Jun, [facility] [address] [address]- 6704 May, Diabetes type 2, uncontrolled E11.65 [facility] [id number] [place] [address], [place] [address] 2546 May, [facility] [id number] [place] [address] 14701- 0586 Apr, Type 2 diabetes mellitus without complication E11.9 [facility] [id number], [place] [address]- 4269 Apr, Encounter for immunization Z23 [facility] [id number] [place] [address], [place] [address]- 4134 Apr, [facility] [id number] [place] [address]- 5371 Mar, [facility] [id number] [place] [address], [place] [address]- 4273 Mar, [facility] [id number] [place] [address], [place] [address]- 1337 Mar, [facility] [id number] [place] [address], [place] [address]- 8130 Feb, [facility] [id number] [place] [address]- 7071 Jan, [facility] [id number] [place] [address] 48665- 5419 Jan, [facility] [address], [place] [address]- 2876 Jan, [facility] [address] [address]- 1774 Dec, Diabetes 250.00 and COPD (chronic obstructive pulmonary disease) 496 [facility] [address] [address]- 6911 Dec, [facility] [address] [address]- 5533 Dec, [facility] [address] [address]- 9515 Nov, [facility] [address] [address]- 7033 Oct, Diabetes 250.00 [facility] [address] [place] [address]- 7766 Sep, [facility] [id number] [address]- 7243 Sep, [facility] [address] [address]- 2482 Sep, [facility] [address] [address]- 1686 Sep, Diabetes 250.00 [facility] [id number] [place] [address] 04779- 0750 Sep, [facility] [id number] 4250 Sep, [facility] [id number] [place] [address] 665135- 5635 August, Hypertension, essential, benign 401.1 ; Coronary atherosclerosis of [place] coronary artery 414.01 and Diabetic neuropathy associated with type 2 diabetes mellitus 250.60 [facility] [address] [address]- 4952 Jul, [facility] [address] [address]- 1844 Jul, [facility] [id number] [address]- 6523 Jul, [facility] [address] [address]- 4288 Jun, [facility] [address] [address]- 8728 Jun, [facility] [address], [place] [address]- 4733 Jun, [facility] [address] [address]- 8406 Jun, [facility] [address] [address]- 4326 Jun, [facility] [address] 6148 May, [facility] [place] [facility] [address] [id number] [place] [address]- 1369 May, 2014 [facility] [place] [facility] [address] [id number] [place] [address]- 2483 May, 2014 [facility] [place] [facility] [address] [id number] [place] 4551 May, 2014 [facility] [place] [facility] [address] [id number] [place] [address]- 6948 May, 2014 [facility] [place] [facility] [address] [id number] [place] [address]- 9709 May, [facility] [place] [facility] [address] [id number] [place] [address]- 4370 May, 2014 [facility] [place] [facility] [address] [facility] 2] [id number] [place] [address]- 4105 Apr, [facility] [place] [facility] [address] [id number] [place] [address]- 7305 Apr, [facility] [place] [facility] [address] [id number] [place] [address]- 5002 Apr, [facility] [place] [facility] [address] [facility] [place] [facility] [id number] [place] [address] Apr, [facility] [place] [facility] [address] [facility] [place] [facility] [id number] [place] [address] Mar, [facility] [place] [facility] [address] [id number] [place] [address] Mar, [facility] [place] [facility] [address] [id number] [place] [id number] [address] Mar, [facility] [place] [facility] [address] [facility] [place] [facility] [id number] [place] [address] Mar, [facility] [place] [facility] [address] [facility] [place] [facility] [id number] [place] [id number] [address] Feb, [facility] [place] [facility] [address] [id number] [place] [address] Feb, [facility] [place] [facility] [address] [id number] [place] [address] Feb, [facility] [place] [facility] [address] [id number] [place] [address] Feb, [facility] [place] [facility] [address] [id number] [place] [address] Feb, [facility] [place] [facility] [address] [id number] [place] [address] Feb, [facility] [place] [facility] [address] [id number] [place] [address] Feb, [facility] [place] [facility] [address] [id number] [place] [address] Jan, [facility] [place] [facility] [address] [id number] [place] [address] Jan, [facility] [place] [facility] [address] [id number] [place] [address] Dec, [facility] [place] [facility] [address] [id number] [place] [address]- 2021 Dec, [facility] [place] [facility] [address] [id number] [place] [address] Dec, [facility] [place] [facility] [address] [id number] [place] [address] 10 Dec, 2013 [facility] [place] [facility] [address] [id number] [place] [address]- [address] 04 Dec, 2013 [facility] [place] [facility] [address] [id number] [place] [address]- [address] 04 Dec, 2013 [facility] [place] [facility] [address] [id number] [place] [address]- [address] Dec, 2013 [facility] [place] [facility] [address] [id number] [place] [address] Dec, [facility] [place] [facility] [address] [id number] [place] [address] Nov, [facility] [place] [facility] [address] [id number] [place] [address] Nov, [facility] [place] [facility] [address] [id number] [place] [address] Nov, [facility] [place] [facility] [address] [id number] [place] [address] Nov, [facility] [place] [facility] [address] [id number] [place] [address] Oct, [facility] [place] [facility] [address] [id number] [place] [address] Oct, [facility] [place] [facility] [address] [id number] [place] [address] Oct, [facility] [place] [facility] [address] [id number] [place] [address] 48[address] Oct, [facility] [place] [facility] [address] [id number] [place] [address] Oct, [facility] [place] [facility] [address] [id number] [place] [address] 4656 Oct, [facility] [place] [facility] [address] [id number] [place] [address]- 6638 Oct, [facility] [place] [facility] [address] [id number] [place] [address]- 2381 Oct, [facility] [place] [facility] [address] [id number] [place] [address]- 9681 Sep, [facility] [place] [facility] [address] [id number] [place] [address]- 1781 Sep, [facility] [place] [facility] [address] [id number] [place] [address]- [address] August, [facility] [place] [facility] [address] [id number], [place] [address] August, [facility] [address] [id number] [place] [address]- 24[address] Jul, [facility] [place] [facility] [address] [id number] [place] [address]- 8250 Jul, [facility] [place] [facility] [address] [id number] [place] [address]- 6[address] Jul, [facility] [place] [facility] [address] [id number] [place] [address]- 7190 Jul, [facility] [place] [facility] [address] [id number] [place] [address]- 2070 Jul, [facility] [place] [facility] [address] [id number] [place] [address]- 1643 Jul, [facility] [place] [facility] [address] [id number] [place] [address]- 8016 Jul, [facility] [place] [facility] [address] [id number] [place] [address]- 9345 Jul, [facility] [place] [facility] [address] [id number] [place] [address]- 5322 Jun, [facility] [place] [facility] [address] [id number] [place] [address]- 7683 Jun, [facility] [place] [facility] [address] [id number] [place] [address]- 4458 Jun, [facility] [place] [facility] [address] [id number] [place] [address]- 1795 Jun, [facility] [place] [facility] [address] [id number] [place] [address]- 6526 May, [facility] [place] [facility] [address] [id number] [place] [address]- 1652 May, [facility] [place] [facility] [address] [id number] [place] [address]- 0567 Apr, [facility] [place] [facility] [address] [id number] [place] [address]- 1282 Apr, [facility] [place] [facility] [address] [id number] [place] [address]- 7438 Mar, [facility] [place] [facility] [address] [id number] [place] [address]- 4755 Mar, [facility] [place] [facility] [address] [id number] [place] [address]- 3578 Mar, [facility] [place] [facility] [address] [id number] [place] [address]- 2697 Mar, [facility] [place] [facility] [address] [id number] [place] [address]- 0115 Mar, [facility] [place] [facility] [address] [id number] [place] [address]- 1850 Mar, [facility] [place] [facility] [address] [id number] [place] [address]- 1076 Feb, [facility] [place] [facility] [address] [id number] [place] [address]- 3167 Feb, [facility] [place] [facility] [address] [id number] [place] [address]- 6187 Feb, [facility] [place] [facility] [address] [id number] [place] [address]- 9746 Feb, [facility] [place] [facility] [address] [id number] [place] [address]- 5995 Feb, [facility] [place] [facility] [address] [id number] [place] [address]- 0020 Feb, [facility] [place] [facility] [address] [id number] [place] [address]- 3658 Feb, [facility] [place] [facility] [address] [id number] [place] [address]- 9929 Feb, [facility] [place] [facility] [address] [id number] [place] [address]- 0509 15 Jan, 2013 [facility] [place] [facility] [address] [id number] [place] [address]- 5452 15 Jan, 2013 [facility] [place] [facility] [address] [id number] [place] [address]- 1381 14 Jan, 2013 [facility] [place] [facility] [address] [id number] [place] [address]- 2174 14 Jan, 2013 [facility] [place] [facility] [address] [id number] [place] [address]- 3798 18 Dec, 2012 [facility] [place] [facility] [address] [id number] [place] [address]- 8293 13 Dec, 2012 [facility] [place] [facility] [address] [id number] [place] [address]- 6145 2012 [facility] [place] [facility] [address] [id number] [place] [address]- 8425 Nov, [facility] [place] [facility] [address] [id number], [place] [address]- 9985 Nov, [facility] [place] [facility] [address] [id number] [place] [address]- 2210 16 Oct, 2012 [facility] [place] [facility] [address] [id number], [place] [address]- 4[address] 05 Oct, 2012 [facility] [place] [facility] [address] [id number], [place] [address]- 2366 Oct, [facility] [place] [facility] [address] [id number], [place] [address]- 4965 28 Sep, 2012 [facility] [place] [facility] [address] [id number] [place] [address]- 8525 Sep, [facility] [place] [facility] [address] [id number], [place] [address]- 8520 18 Sep, 2012 [facility] [place] [facility] [address] [id number] [address]- 6074 Sep, [facility] [place] [facility] [address] [id number] [place] [address]- 6029 Sep, [facility] [address] [id number] [place] [address]- 9804 Sep, [facility] [address] [id number] [place] [address]- 1682 August, [facility] [address] [id number] [place] [address]- 1865 August, [facility] [address] [id number] [place] [address]- 0979 August, [facility] [address] [id number] [place] [address]- 0392 August, [facility] [address] [id number] [place] [address]- 5312 August, [facility] [address] [id number] [place] [address]- 0160 August, [facility] [address] [id number] [place] [address]- 9703 August, [facility] [address] [id number] [place] [address]- 3650 Jul, [facility] [address] [id number] [place] [address]- 6359 Jul, [facility] [address] [id number] [place] [address]- 7035 Jun, [facility] [address] [id number] [place] [address]- 3575 Jun, [facility] [place] [facility] [address] [id number] [place] [address]- 2021 May, [facility] [address] [id number] [place] [address]- 0798 May, [facility] [address] [id number] [place] [address]- 3455 Apr, [facility] [place] [facility] [address] [id number] [place] [address]- 4595 Mar, [facility] [place] [facility] [address] [id number] [place] [address]- 2132 Mar, [facility] [place] [facility] [address] [id number] [place] [address]- 9132 Mar, [facility] [place] [facility] [address] [id number] [place] [address]- 0055 Mar, [facility] [place] [facility] [address] [id number] [place] [address]- 7698 Mar, [facility] [place] [facility] [address] [id number] [place] [address]- 7624 Mar, [facility] [place] [facility] [address] [facility] [id number] [place] [address]- 5307 Feb, [facility] [place] [facility] [address] [id number], [place] [address]- 3366 Feb, [facility] [place] [facility] [address] [id number] [place] [address]- 8408 Feb, [facility] [place] [facility] [address] [facility] [place] [id number], [place] [address]- 1547 Feb, [facility] [place] [facility] [address] [facility] [place] [id number], [place] [address]- 7703 Feb, [facility] [place] [facility] [address] [id number], [place] [address]- 5505 Feb, [facility] [place] [facility] [address] [id number], [place] [address]- 5536 Feb, [facility] [place] [facility] [address] [id number], [place] [address]- 9271 Feb, [facility] [place] [facility] [address] [facility] [place] [id number], [place] [address]- 4417 Jan, [facility] [place] [facility] [address] [id number], [place] [address]- 1392 Jan, [facility] [place] [facility] [address] [id number] [place] [address]- 8397 28 Dec, 2011 [facility] [place] [facility] [address] [id number] [place] [address]- 3146 19 Dec, 2011 [facility] [place] [facility] [address] [id number] [place] [address]- 0116 18 Dec, 2011 [facility] [place] [facility] [address] [id number] [place] [address]- 9848 18 Dec, 2011 [facility] [place] [facility] [address] [id number] [place] [address]- 1351 04 Dec, 2011 [facility] [place] [facility] [address] [id number] [place] [address]- 7214 Nov, [facility] [place] [facility] [address] [id number] [place] [address]- 6886 Oct, [facility] [place] [facility] [address] [facility] [place] [id number] [place] [address]- 4963 Oct, [facility] [place] [facility] [address] [facility] [place] [id number] [place] [address]- 9268 Sep, [facility] [place] [facility] [address] [facility] [place] [id number] [place] [address]- 8975 Sep, [facility] [place] [facility] [address] [facility] [place] [id number], [place] [address]- 8870 Sep, [facility] [place] [facility] [address] [id number], [place] [address]- 2944 Sep, [facility] [place] [facility] [address] [id number] [place] [address]- 1315 Sep, [facility] [place] [facility] [address] [facility] [id number] [place] [address]- 6353 Sep, [facility] [place] [facility] [address] [facility] [id number] [place] [address]- 8546 Sep, [facility] [place] [facility] [address] [id number] [place] [address]- 1469 Sep, [facility] [place] [facility] [address] [id number] [place] [address]- 9042 August, [facility] [place] [facility] [address] [id number] [place] [address]- 2406 August, [facility] [place] [facility] [address] [id number] [place] [address]- 5028 August, [facility] [place] [facility] [address] [id number] [place] [address]- 2260 Jul, [facility] [place] [facility] [address] [id number] [place] [address]- 0584 Jul, [facility] [place] [facility] [address] [id number] [place] [address]- 9487 Jun, [facility] [place] [facility] [address] [id number] [place] [address]- 7609 Jun, [facility] [place] [facility] [address] [id number] [place] [address]- 3757 Jun, [facility] [place] [facility] [address] [id number] [place] [address]- 4481 Jun, [facility] [place] [facility] [address] [id number] [place] [address]- 8009 May, [facility] [place] [facility] [address] [id number] [place] [address]- 0962 May, [facility] [place] [facility] [address] [id number] [place] [address]- 8772 16 Apr, 2011 [facility] [place] [facility] [address] [id number] [place] [address]- 6574 Apr, [facility] [place] [facility] [address] [id number] [place] [address]- 3386 04 Apr, 2011 [facility] [place] [facility] [address] [id number] [place] [address]- 9973 14 Mar, 2011 [facility] [place] [facility] [address] [id number] [place] [address]- 2895 09 Mar, 2011 [facility] [place] [facility] [address] [id number] [place] [address]- 6006 Mar, [facility] [place] [facility] [address] [facility] [id number] [place] [address]- 9507 Feb, [facility] [place] [facility] [address] [id number] [place] [address]- 7929 Feb, [facility] [place] [facility] [address] [id number] [place] [address]- 4156 Feb, [facility] [place] [facility] [address] [id number] [place] [address]- 6070 Feb, [facility] [place] [facility] [address] [id number] [place] [address]- 7306 Jan, [facility] [place] [facility] [address] [id number], [place] [address]- 0537 14 Jan, 2011 [facility] [place] [facility] [address] [id number], [place] [address]- 0186 Jan, [facility] [place] [facility] [address] [facility] [id number], [place] [address]- 5033 16 Dec, 2010 [facility] [place] [facility] [address] [id number], [place] [address]- 8023 Oct, [facility] [place] [facility] [address] [id number], [place] [address]- 4639 Mar, [facility] [place] [facility] [address] [id number] [place] [address]- 9284 Feb, [facility] [place] [facility] [address] [id number], [place] [address]- 5077 15 Feb, 2010 [facility] [place] [facility] [address] [facility] [id number], [place] [address]- 9249 16 May, 2009 [facility] [place] [facility] [address] [id number], [place] [address]- 3169 Apr, [facility] [id number], [place] [address]- 4204 Mar, [facility] [id number], [place] [address]- 1482 Jan, [facility] [id number], [place] [address]- 3225 Oct, [facility] [id number], [place] [address]- 8124 Jul, [facility] [id number], [place] [address]- 2218 Mar, [facility] [id number], [place] [address]- 3965 Feb, [facility] [id number], [place] [address]- 0494 Jan, IMMUNIZATIONS No Known Immunizations SOCIAL HISTORY [...]
--- OUTSIDE RECORDS SUMMARY | 2018-07-05 12:27 | XMS REPORT ---
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 Name Role Phone LOPEZHAN Trimble Unavailable PROBLEMS Type Condition ICD9-CM Code CFN56-RA Code Onset Dates Condition Status SNOMED Code Problem Arthritis M19.90 Active 6465630 Problem 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 Active 52045668 Problem Polyneuropathy G62.9 Active 20344442 Problem Other male erectile dysfunction N52.8 Active 430794925 Problem Constipation K59.00 Active 06101615 Problem Type 2 diabetes mellitus with 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 E11.65 Active 777080232 Problem Controlled type 2 diabetes mellitus without complication, without long -term current use of insulin E11.9 Active 685969945 Problem group home current use of insulin Z79.4 Active 133994642 Problem Neuropathy G62.9 Active 852228418 Problem Obstructive sleep apnea G47.33 Active 65031344 Problem Hypertension, benign I10 Active 75004452 Problem Uncontrolled type 2 diabetes mellitus without complication, without long-term current use of insulin E11.65 Active 181577171 Problem Stress incontinence of urine N39.3 Active 09272861 Problem Fibromyalgia M79.7 Active 096955093 ALLERGIES No Information ENCOUNTERS Encounter Location Date Diagnosis [facility] [address], [place] [address] Dec, [facility] [address], [place] [address] 2531 Dec, [facility] [id number] [place] [address] 31850- 7476 Dec, [facility] [address], [place] [address]- 3616 Dec, [facility] [id number] [place] [address] 89319- 0561 Nov, [facility] [address], [place] [address] 8599 Nov, Therapeutic drug monitoring Z51.81 [facility] [id number] [place] [address] 88952- 1316 Nov, [facility] [id number] [place] [address] 68416- 6925 Nov, Therapeutic drug monitoring Z51.81 ; Fibromyalgia M79.7 and Controlled type 2 diabetes mellitus without complication, without long-term current use of insulin E11.9 [facility] [id number] [place] [address] 65937- 8056 Nov, Type 2 diabetes mellitus with 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 E11.65 [facility] [id number] [place] [address] 37022- 9133 Nov, [facility] [id number] [place] [address] 11082- 7269 Nov, [facility] [id number] [place] [address] 02079- 0413 Nov, Type 2 diabetes mellitus with 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 E11.65 [facility] [id number] [place] [address] 34700- 2272 Nov, [facility] [id number] [place] [address] 89047- 5930 Nov, [facility] [id number] [place] [address] 89200- 0645 Nov, Constipation K59.00 [facility] [id number] [place] [address] 69910- 1534 Oct, Diabetes type 2, controlled E11.9 [facility] [id number] [place] [address] 89928- 0567 Oct, Type 2 diabetes mellitus with 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 E11.65 ; group home current use of insulin Z79.4 and Neuropathy G62.9 [facility] [id number] [place] [address]- 2264 Oct, [facility] [address] 2839 Oct, [facility] [address] 3605 Oct, [facility] [address], [place] [address]- 6518 Oct, [facility] [address] 9453 Oct, [facility] [address] 1846 Oct, [facility] [address] 6756 Oct, [facility] [address] [address]- 5163 Sep, [facility] [address], [place] [address]- 9809 Sep, Uncontrolled type 2 diabetes mellitus without complication, without long-term current use of insulin E11.65 [facility] [address], [place] [address]- 5644 Sep, Hypertension, benign I10 ; Fibromyalgia M79.7 ; Controlled type 2 diabetes mellitus without complication, without long-term current use of insulin E11.9 and Uncontrolled type 2 diabetes mellitus without complication, without long-term current use of insulin E11.65 [facility] [id number] [address]- 6619 Sep, [facility] [address] 1766 Sep, Uncontrolled type 2 diabetes mellitus without complication, without long-term current use of insulin E11.65 [facility] [address], [place] [address]- 1829 Sep, [facility] [id number] [place] [address] 80630- 7069 Sep, [facility] [address] 62782- 9822 Sep, Uncontrolled type 2 diabetes mellitus without complication, without long-term current use of insulin E11.65 and Fibromyalgia M79.7 [facility] [address] 34592- 1159 August, [facility] [address] 37033- 5495 August, [facility] [address] 30056- 4752 August, [facility] [address] 95864- 7108 August, Fibromyalgia M79.7 [facility] [address] 17532- 3309 Jul, Hypertension, benign I10 [facility] [address] 67979- 9952 Jul, Fibromyalgia M79.7 [facility] [address] 16431- 5033 Jul, [facility] [id number] [place] [address] 35887- 2048 Jun, [facility] [id number] [place] [address] 71515- 9562 Jun, Hypertension, benign I10 ; Arthritis M19.90 ; group home current use 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 Z79.891 and Uncontrolled type 2 diabetes mellitus without complication, without long-term current use of insulin E11.65 [facility] [id number] [place] [address] 37708 -0934 Jun, Acute nasopharyngitis J00 and BMI 50.0-59.9, adult Z68.43 [facility] [id number] [place] [address] 36161- 9104 Jun, Fibromyalgia M79.7 [facility] [address], [place] [address]- 7416 May, [facility] [id number] [place] [address] 34068 2546 May, Fibromyalgia M79.7 [facility] [id number] [place] [address] 04222 2546 Apr, Fibromyalgia M79.7 [facility] [id number] [place] [address] 31442- 6296 Apr, [facility] [id number] [place] [address] 15624- 5716 Apr, [facility] [id number] [place] [address] 02172- 4680 Apr, Arthritis M19.90 [facility] [id number] [place] [address] 35868- 6881 Apr, Arthritis M19.90 [facility] [address] [place] [address] 92020- 3893 Apr, Arthritis M19.90 and Controlled type 2 diabetes mellitus without complication, without long-term current use of insulin E11.9 [facility] [address], [place] [address]- 0406 Apr, [facility] [id number] [place] [address] 10995 2544 Apr, Fibromyalgia M79.7 [facility] [address] [address]- 0216 Mar, [facility] [id number] [place] [address] 510549- 3556 Mar, [facility] [address], [place] [address]- 1416 Mar, Fibromyalgia M79.7 [facility] [id number] [place] [address] 14317- 6399 Feb, [facility] [address] 72109- 7877 Feb, [facility] [id number] [place] [address] 81661- 6208 Feb, [facility] [address] 64833- 8063 Feb, Fibromyalgia M79.7 [facility] [address] 89891- 7891 Feb, Diabetes type 2, uncontrolled E11.65 and Encounter for immunization Z23 [facility] [id number] [place] [address] 47684- 7794 Jan, [facility] [address] 73773- 1180 Jan, Fibromyalgia M79.7 [facility] [id number] [place] [address] 58755- 7354 Dec, [facility] [id number] [place] [address] 89363- 5860 Dec, Fibromyalgia M79.7 [facility] [id number] [place] [address] 78529- 1444 Nov, [facility] [id number] [place] [address] 48354- 7015 Nov, [facility] [id number] [place] [address] 41589- 3802 Nov, 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 and Polyneuropathy G62.9 [facility] [id number] [place] [address] 28693- 4659 Nov, [facility] [id number] [place] [address] 45825- 8151 Nov, [facility] [id number] [place] [address] [place] [address]- 9810 Oct, Diabetes type 2, uncontrolled E11.65 [facility] [id number] [address]- 5398 Oct, Diabetes type 2, uncontrolled E11.65 ; Polyneuropathy G62.9 and Pain in right wrist M25.531 [facility] [id number] [place] [address] 54167- 2756 Oct, [facility] [id number] [place] [address] 50559- 8254 Oct, Pain in left shoulder M25.512 [facility] [id number] [place] [address] 35547- 7194 Sep, [facility] [id number] [place] [address] 01753- 4360 Sep, Pain in left shoulder M25.512 [facility] [id number] [place] [address] 55610- 9265 Sep, [facility] [id number] [place] [address] 76986- 4447 August, Pain in left shoulder M25.512 [facility] [address], [place] [address]- 2133 Jul, [facility] [address], [place] [address]- 3774 Jul, [facility] [id number] [place] [address] 63498- 2102 Jul, Pain in left shoulder M25.512 [facility] [address], [place] [address]- 4851 Jun, [facility] [id number] [address] 6347 Jun, [facility] [address], [place] [address]- 3915 Jun, Diabetes type 2, uncontrolled E11.65 ; Fibromyalgia M79.7 and Arthritis M19.90 [facility] [id number] [place] [address] 53368- 1806 Jun, Pain in left shoulder M25.512 [facility] [id number] [place] [address] 82485- 7116 May, [facility] [id number] [place] [address] 52357- 7236 May, Diabetes type 2, controlled E11.9 [facility] [id number] [place] [address] 35747- 1146 17 May, 2016 [facility] [id number] [place] [address] 13284- 9378 May, Uncontrolled type 2 diabetes mellitus without complication, without long-term current use of insulin E11.65 [facility] [id number] [place] [address] 49407- 0202 May, Pain in left shoulder M25.512 [facility] [address] [place] [address] 85602- 6990 May, Diabetes type 2, controlled E11.9 and Uncontrolled type 2 diabetes mellitus without complication, without long-term current use of insulin E11.65 [facility] [address], [place] [address]- 9531 Apr, [facility] [id number] [place] [address] 73599- 3354 Apr, [facility] [address], [place] [address]- 7042 Mar, [facility] [id number] [place] [address] 34919- 3617 Mar, [facility] [address], [place] [address]- 3853 Mar, [facility] [id number] [place] [address] 98487- 7725 Feb, [facility] [address] [id number] [id number] Feb, Dental examination Z01.20 [facility] [address] [id number] [place] [address]- 3957 Jan, [facility] [id number] [place] [address]- 5028 Dec, [facility] [address] [id number] [place] [address]- 5366 Dec, [facility] [id number] [place] [address], [place] [address]- 0215 Dec, [facility] [address] [id number] [place] [address]- 8097 Dec, Diabetes type 2, controlled E11.9 [facility] [address] [place] [address], [place] [address]- 8096 Nov, [facility] [address] [id number] [address]- 1992 Nov, [facility] [id number] [place] [address]- 7912 Nov, [facility] [id number] [address]- 6947 Nov, [facility] [address], [place] [address]- 3218 Oct, [facility] [address] [id number] [address]- 7724 Oct, [facility] [address] [facility] [id number] [place] [address]- 6435 Oct, [facility] [address] [facility] [id number], [place] [address]- 1438 Sep, [facility] [address] [address]- 2725 Sep, Diabetes type 2, controlled E11.9 [facility] [address] [place] [address]- 6332 Sep, Diabetes type 2, controlled E11.9 [facility] [address] [facility] [id number] [place] [address]- 1856 August, [facility] [address] [place] [address] 46360- 7628 August, [facility] [address] [place] [address] 47107- 1367 August, Type 2 diabetes mellitus without complication E11.9 and Pain in left shoulder M25.512 [facility] [address] [place] [address], [place] [address]- 6025 Jul, [facility] [address] [place] [address]- 0628 Jul, Diabetes type 2, controlled E11.9 and Hypertension, benign I10 [facility] [address] [place] [address]- 5429 Jun, [facility] [address] [place] [address]- 2549 Jun, [facility] [address] [address]- 2195 Jun, Diabetes 250.00 [facility] [address] [place] [address]- 9154 Jun, [facility] [address] [address]- 4500 May, Diabetes type 2, uncontrolled E11.65 [facility] [address] [place] [address]- 2776 May, [facility] [id number] [address]- 0179 Apr, Type 2 diabetes mellitus without complication E11.9 [facility] [address] [place] [address]- 3345 Apr, Encounter for immunization Z23 [facility] [id number] [place] [address], [place] [address]- 8913 Apr, [facility] [address] [place] [address]- 2615 Mar, [facility] [id number] [place] [address], [place] [address]- 6499 Mar, [facility] [address] [place] [address]- 1420 Mar, [facility] [id number] [place] [address], [place] [address]- 7627 Feb, [facility] [id number] [place] [address]- 0085 Jan, [facility] [id number] [place] [address], [place] [address]- 6140 Jan, [facility] [address] [place] [address]- 2897 Jan, [facility] [address] [place] [address]- 3088 Dec, Diabetes 250.00 and COPD (chronic obstructive pulmonary disease) 496 [facility] [address] [address]- 7389 Dec, [facility] [address] [address]- 3301 Dec, [facility] [address] [place] [address]- 6506 Nov, [facility] [address] [address]- 4416 Oct, Diabetes 250.00 [facility] [address] [place] [address]- 0279 Sep, [facility] [address]- 5789 Sep, [facility] [id number] [place] [address] 741956- 3112 Sep, [facility] [address], [place] [address]- 5754 Sep, Diabetes 250.00 [facility] [id number] [place] [address] 22074- 1243 Sep, [facility] [id number] [place] [address] 09608- 5238 Sep, [facility] [id number] [place] [address] 26599- 9231 August, Hypertension, essential, benign 401.1 ; Coronary atherosclerosis of tribe coronary artery 414.01 and Diabetic neuropathy associated with type 2 diabetes mellitus 250.60 [facility] [id number] [address]- 4568 Jul, [facility] [address], [place] [address]- 4647 Jul, [facility] [address] [address]- 3943 Jul, [facility] [address], [place] [address]- 0935 Jun, [facility] [address] [address]- 6035 Jun, [facility] [address], [place] [address]- 6719 Jun, [facility] [address] 3905 Jun, [facility] [address], [place] [address]- 2656 Jun, [facility] [address] [address]- 7855 May, 2014 [facility] [place] [facility] [address] [id number] [place] [address]- 4774 May, 2014 [facility] [place] [facility] [address] [facility] [id number] [place] [address]- 9429 May, 2014 [facility] [place] [facility] [address] [facility] [id number] [place] [address]- 5676 May, 2014 [facility] [place] [facility] [address] [facility] [id number] [place] [address] May, 2014 [facility] [place] [facility] [address] [facility] [id number] [place] [address] May, 2014 [facility] [place] [facility] [address] [facility] [id number] [place] [address] May, 2014 [facility] [place] [facility] [address] [id number] [place] [address] Apr, [facility] [place] [facility] [address] [facility] [id number] [place] [address] Apr, [facility] [place] [facility] [address] [facility] [id number] [place] [address] Apr, [facility] [place] [facility] [address] [facility] [id number] [place] [address] Apr, [facility] [place] [facility] [address] [facility] [id number] [place] [address] Mar, [facility] [place] [facility] [address] [facility] [id number] [place] [address] Mar, [facility] [place] [facility] [address] [facility] [id number] [place] [address] Mar, [facility] [place] [facility] [address] [facility] [id number] [place] [address] Mar, [facility] [place] [facility] [address] [facility] [id number] [place] [address] Feb, [facility] [place] [facility] [address] [id number] [place] [address] Feb, [facility] [place] [facility] [address] [id number] [place] [address] Feb, [facility] [place] [facility] [address] [id number] [place] [address] Feb, [facility] [place] [facility] [address] [id number] [place] [address] Feb, [facility] [place] [facility] [address] [id number] [place] [address] Feb, [facility] [place] [facility] [address] [id number] [place] [address] Feb, [facility] [place] [facility] [address] [id number] [place] [address] Jan, [facility] [place] [facility] [address] [id number] [place] [address] Jan, [facility] [place] [facility] [address] [id number] [place] [address] Dec, [facility] [place] [facility] [address] [id number] [place] [address] 23 Dec, 2013 [facility] [place] [facility] [address] [id number] [place] [address] 10 Dec, 2013 [facility] [place] [facility] [address] [id number] [place] [address] 10 Dec, 2013 [facility] [place] [facility] [address] [id number] [place] [address] 04 Sep, 2013 [facility] [place] [facility] [address] [id number] [place] [address] 04 Sep, 2013 [facility] [place] [facility] [address] [id number] [place] [address] 03 Dec, 2013 [facility] [place] [facility] [address] [id number] [place] [address] Dec, [facility] [place] [facility] [address] [id number] [place] [address] Nov, [facility] [place] [facility] [address] [id number] [place] [address] Nov, [facility] [place] [facility] [address] [id number] [place] [address] Nov, [facility] [place] [facility] [address] [id number] [place] [address] Nov, [facility] [place] [facility] [address] [id number] [place] [address] Oct, [facility] [place] [facility] [address] [id number] [place] [address] Oct, [facility] [place] [facility] [address] [id number] [place] [address] Oct, [facility] [place] [facility] [address] [id number] [place] [address] Oct, [facility] [place] [facility] [address] [id number] [place] [address] Oct, [facility] [place] [facility] [address] [id number] [place] [address] Oct, [facility] [place] [facility] [address] [id number] [place] [address] Oct, [facility] [place] [facility] [address] [id number] [place] [address] Oct, [facility] [place] [facility] [address] [id number] [place] [address] Sep, [facility] [place] [facility] [address] [id number] [place] [address] Sep, [facility] [place] [facility] [address] [id number] [place] [address] August, [facility] [place] [facility] [address] [id number] [place] [address] August, [facility] [place] [facility] [address] [id number] [place] [address] 5068 Jul, [facility] [place] [facility] [address] [id number] [place] [address] 38[address] Jul, [facility] [place] [facility] [address] [id number] [place] [address] Jul, [facility] [place] [facility] [address] [id number] [place] [address] Jul, [facility] [place] [facility] [address] [id number] [place] [address] 9767 Jul, [facility] [place] [facility] [address] [id number] [place] [address]328 Jul, [facility] [place] [facility] [address] [id number] [place] [address] 7288 Jul, [facility] [place] [facility] [address] [id number] [place] [address] 9611 Jul, [facility] [place] [facility] [address] [id number] [place] [address] 58[address] Jun, [facility] [place] [facility] [address] [id number] [place] [address]- 1824 Jun, [facility] [place] [facility] [address] [id number] [place] [address]- 4226 Jun, [facility] [place] [facility] [address] [id number] [place] [address]- 0723 Jun, [facility] [place] [facility] [address] [id number] [place] [address]- 1684 May, [facility] [place] [facility] [address] [id number] [place] [address]- 0570 May, [facility] [place] [facility] [address] [id number] [place] [address] 1056 Apr, [facility] [place] [facility] [address] [id number] [place] [address]- 2383 Apr, [facility] [address] [id number] [place] [address] 5674 Mar, [facility] [address] [id number] [place] [address]- 3597 Mar, [facility] [place] [facility] [address] [id number] [place] [address]- 6457 Mar, [facility] [address] [id number] [place] [address]- 5923 Mar, [facility] [address] [id number] [place] [address]- 7743 Mar, [facility] [address] [id number] [place] [address]- 7351 Mar, [facility] [address] [id number] [place] [address] 6970 Feb, [facility] [address] [id number] [place] [address]- 6893 Feb, [facility] [address] [id number] [place] [address] 8851 Feb, [facility] [place] [facility] [address] [id number] [place] [address]- 5486 Feb, [facility] [place] [facility] [address] [id number] [place] [address]- 3074 Feb, [facility] [place] [facility] [address] [id number] [place] [address]- 9207 Feb, [facility] [place] [facility] [address] [id number] [place] [address]- 4408 Feb, [facility] [place] [facility] [address] [id number] [place] [address]- 3566 Feb, [facility] [place] [facility] [address] [id number] [place] [address]- 2148 15 Jan, 2013 [facility] [place] [facility] [address] [id number] [place] [address]- 4880 15 Jan, 2013 [facility] [place] [facility] [address] [id number] [place] [address]- 1445 14 Jan, 2013 [facility] [place] [facility] [address] [id number] [place] [address]- 0210 14 Jan, 2013 [facility] [place] [facility] [address] [id number] [place] [address]- 4970 18 Dec, 2012 [facility] [place] [facility] [address] [id number] [place] [address]- 1624 13 Dec, 2012 [facility] [place] [facility] [address] [id number] [place] [address]- 6662 2012 [facility] [place] [facility] [address] [id number] [place] [address]- 2465 Nov, [facility] [place] [facility] [address] [id number] [place] [address]- 2050 Nov, [facility] [place] [facility] [address] [id number] [place] [address]- 7975 16 Oct, 2012 [facility] [place] [facility] [address] [id number] [place] [address]- 5226 Oct, [facility] [place] [facility] [address] [id number] [address] Oct, [facility] [place] [facility] [address] [id number] [place] [address]- 3530 Sep, [facility] [place] [facility] [address] [id number] [place] [address] Sep, [facility] [place] [facility] [address] [id number] [place] [address] 18 Sep, 2012 [facility] [place] [facility] [address] [id number] [place] [address]- 3484 Sep, [facility] [place] [facility] [address] [id number] [place] [address]- 8176 Sep, [facility] [address] [id number] [place] [address]- 2010 Sep, [facility] [address] [id number] [place] [address] 2876 August, [facility] [address] [id number] [place] [address]- 2670 August, [facility] [address] [id number] [place] [address]- 8721 August, [facility] [address] [id number] [place] [address]- 2055 August, [facility] [address] [id number] [place] [address]- 4546 August, [facility] [address] [id number] [place] [address]- 7891 August, [facility] [address] [id number] [place] [address] 5757 August, [facility] [address] [id number] [place] [address]- 3065 Jul, [facility] [address] [id number] [place] [address]- 4429 Jul, [facility] [address] [id number] [place] [address]- 5249 Jun, [facility] [address] [id number] [place] [address]- 5090 Jun, [facility] [address] [id number] [place] [address]- 2176 May, [facility] [address] [id number] [place] [address]- 5906 May, [facility] [address] [id number] [place] [address]- 2064 Apr, [facility] [place] [facility] [address] [id number] [place] [address]- 1501 Mar, [facility] [place] [facility] [address] [id number] [place] [address]- 5603 Mar, [facility] [place] [facility] [address] [id number] [place] [address]- 3157 Mar, [facility] [place] [facility] [address] [id number] [place] [address]- 4590 Mar, [facility] [place] [facility] [address] [id number] [place] [address]- 0725 Mar, [facility] [place] [facility] [address] [id number] [place] [address]- 7949 Mar, [facility] [place] [facility] [address] [facility] [id number] [place] [address]- 1789 Feb, [facility] [place] [facility] [address] [id number] [place] [address]- 4509 Feb, [facility] [place] [facility] [address] [id number] [place] [address]- 3249 Feb, [facility] [place] [facility] [address] [id number] [place] [address]- 8789 Feb, [facility] [place] [facility] [address] [id number], [place] [address] 0762 Feb, [facility] [place] [facility] [address] [id number], [place] [address]- 0625 Feb, [facility] [place] [facility] [address] [id number] [place] [address]- 3989 Feb, [facility] [place] [facility] [address] [id number], [place] [address]- 6186 Feb, [facility] [place] [facility] [address] [facility] [id number] [place] [address]- 9499 Jan, [facility] [place] [facility] [address] [id number] [place] [address]- 2991 19 Jan, 2012 [facility] [place] [facility] [address] [id number] [place] [address]- 7016 28 Dec, 2011 [facility] [place] [facility] [address] [id number] [place] [address] 2546 19 Dec, 2011 [facility] [place] [facility] [address] [id number] [place] [address] 2546 18 Dec, 2011 [facility] [place] [facility] [address] [id number] [place] [address] 2546 18 Dec, 2011 [facility] [place] [facility] [address] [id number] [place] [address]- 4853 04 Dec, 2011 [facility] [place] [facility] [address] [id number] [place] [address]- 8487 Nov, [facility] [place] [facility] [address] [id number] [place] [address]- 7085 Oct, [facility] [place] [facility] [address] [id number] [place] [address]- 9518 Oct, [facility] [place] [facility] [address] [id number] [place] [address]- 5090 Sep, [facility] [place] [facility] [address] [id number] [place] [address]- 2967 Sep, [facility] [place] [facility] [address] [id number] [place] [address]- 1503 Sep, [facility] [place] [facility] [address] [id number] [place] [address] 2540 Sep, [facility] [place] [facility] [address] [id number] [place] [address]- 2018 Sep, [facility] [place] [facility] [address] [id number] [place] [address]- 8360 Sep, [facility] [place] [facility] [address] [id number] [place] [address]- 5020 Sep, [facility] [place] [facility] [address] [id number] [place] [address]- 1902 Sep, [facility] [address] [id number] [place] [address]- 2422 August, [facility] [place] [facility] [address] [id number] [place] [address]- 5136 August, [facility] [place] [facility] [address] [id number] [place] [address]- 5042 August, [facility] [address] [id number] [place] [address]- 5255 Jul, [facility] [place] [facility] [address] [id number] [place] [address]- 4513 Jul, [facility] [address] [id number] [place] [address]- 6292 Jun, [facility] [place] [facility] [address] [id number] [place] [address]- 7454 Jun, [facility] [place] [facility] [address] [id number] [place] [address]- 1601 Jun, [facility] [place] [facility] [address] [id number] [place] [address]- 2426 Jun, [facility] [place] [facility] [address] [id number] [place] [address]- 6890 May, [facility] [place] [facility] [address] [id number] [place] [address]- 9020 May, [facility] [place] [facility] [address] [id number] [place] [address]- 1413 Apr, [facility] [place] [facility] [address] [id number] [place] [address]- 4490 Apr, [facility] [place] [facility] [address] [id number] [place] [address]- 0624 Apr, [facility] [place] [facility] [address] [id number] [address]- [address]64 14 Mar, 2011 [facility] [place] [facility] [address] [id number] [place] [address]- 7356 Mar, [facility] [place] [facility] [address] [id number] [place] [address]- 6162 Mar, [facility] [place] [facility] [address] [id number] [place] [address]- 1022 Feb, [facility] [place] [facility] [address] [id number] [place] [address] Feb, [facility] [place] [facility] [address] [id number] [place] [address]959 Feb, [facility] [place] [facility] [address] [id number] [place] [address]- 4681 Feb, [facility] [place] [facility] [address] [id number] [place] [address]- 2458 Jan, [facility] [place] [facility] [address] [id number] [place] [address]- 3149 14 Jan, 2011 [facility] [place] [facility] [address] [id number] [place] [address]- 4997 Jan, [facility] [place] [facility] [address] [id number] [place] [address]- 3079 16 Dec, 2010 [facility] [place] [facility] [address] [id number], [place] [address]- 2766 Oct, [facility] [place] [facility] [address] [id number] [place] [address]- 6421 Mar, [facility] [place] [facility] [address] [id number] [place] [address]- 2942 Feb, [facility] [place] [facility] [address] [id number] [place] [address] 15 Feb, 2010 [facility] [place] [facility] [address] [id number] [place] [address]- 9283 16 May, 2009 [facility] [place] [facility] [address] [id number] [address]- 4827 Apr, [facility] [id number], [place] [address]- 9897 Mar, [facility] [id number], [place] [address]- 8515 Jan, [facility] [id number], [place] [address]- 3581 Oct, [facility] [id number], [place] [address]- 0039 Jul, [facility] [id number] [place] [address]- 4742 Mar, [facility] [id number], [place] [address]- 0539 Feb, [facility] [id number], [place] [address]- 9229 Jan, IMMUNIZATIONS No Known Immunizations SOCIAL HISTORY Never Assessed REASON FOR VISIT Medication question PLAN OF CARE VITAL SIGNS MEDICATIONS Unknown [...]
--- OUTSIDE RECORDS SUMMARY | 2018-07-05 12:27 | XMS REPORT ---
Author Author KATHYA FISCHER Organization [facility] Address [address] [place] [address] Care Team Providers Care Roentgenologist Name Role Phone KATHYA FISCHER Unavailable PROBLEMS Type Condition ICD9-CM Code STX34-WD Code Onset Dates Condition Status SNOMED Code Problem Arthritis M19.90 Active 6018042 Problem 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 Active 53430627 Problem Polyneuropathy G62.9 Active 13103223 Problem Other male erectile dysfunction N52.8 Active 745051628 Problem Constipation K59.00 Active 82767561 Problem Type 2 diabetes mellitus with 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 E11.65 Active 389662032 Problem Controlled type 2 diabetes mellitus without complication, without long -term current use of insulin E11.9 Active 199302284 Problem assisted current use of insulin Z79.4 Active 028606518 Problem Neuropathy G62.9 Active 973262615 Problem Obstructive sleep apnea G47.33 Active 15331716 Problem Hypertension, benign I10 Active 41119148 Problem Uncontrolled type 2 diabetes mellitus without complication, without long-term current use of insulin E11.65 Active 198960454 Problem Stress incontinence of urine N39.3 Active 87052172 Problem Fibromyalgia M79.7 Active 567091188 ALLERGIES No Information ENCOUNTERS Encounter Location Date Diagnosis [facility] [id number] [place] [address] 42913- 7382 Dec, [facility] [address] [address]- 8786 Dec, [facility] [id number] [place] [address] 73313- 4993 Dec, [facility] [id number] [place] [address] 81372- 6842 Nov, [facility] [address] [place] [address] 58897- 9531 Nov, Therapeutic drug monitoring Z51.81 [facility] [id number] [place] [address] 69633- 9812 Nov, [facility] [id number] [place] [address] 80253- 1429 Nov, Therapeutic drug monitoring Z51.81 ; Fibromyalgia M79.7 and Controlled type 2 diabetes mellitus without complication, without long-term current use of insulin E11.9 [facility] [id number] [place] [address] 81257- 6153 Nov, Type 2 diabetes mellitus with 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 E11.65 [facility] [id number] [place] [address] 87775- 9377 Nov, [facility] [id number] [place] [address] 59449- 3311 Nov, [facility] [id number] [place] [address] 09248- 8322 Nov, Type 2 diabetes mellitus with 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 E11.65 [facility] [id number] [place] [address] 49289- 6019 Nov, [facility] [id number] [place] [address] 45766- 0027 Nov, [facility] [id number] [place] [address] 06777- 3997 Nov, Constipation K59.00 [facility] [id number] [place] [address] 51850- 0404 Oct, Diabetes type 2, controlled E11.9 [facility] [id number] [place] [address] 70684- 5566 Oct, Type 2 diabetes mellitus with 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 E11.65 ; 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 and Neuropathy G62.9 [facility] [id number] [place] [address] 61510- 3638 Oct, [facility] [id number] [place] [address] 35868- 1547 Oct, [facility] [address] [address]- 2709 Oct, [facility] [address] 9174 Oct, [facility] [address] [address]- 4163 Oct, [facility] [address] [address] 2339 Oct, [facility] [address] [address]- 7457 Oct, [facility] [address] [address]- 5680 Sep, [facility] [address] [address]- 8555 Sep, Uncontrolled type 2 diabetes mellitus without complication, without long-term current use of insulin E11.65 [facility] [address] [address]- 4605 Sep, Hypertension, benign I10 ; Fibromyalgia M79.7 ; Controlled type 2 diabetes mellitus without complication, without long-term current use of insulin E11.9 and Uncontrolled type 2 diabetes mellitus without complication, without long-term current use of insulin E11.65 [facility] [address] [address]- 6290 Sep, [facility] [address] [address]- 5579 Sep, Uncontrolled type 2 diabetes mellitus without complication, without long-term current use of insulin E11.65 [facility] [address] [address]- 7592 Sep, [facility] [address] [address]- 7257 Sep, [facility] [id number] [place] [address] 18045- 1856 Sep, Uncontrolled type 2 diabetes mellitus without complication, without long-term current use of insulin E11.65 and Fibromyalgia M79.7 [facility] [id number] [place] [address] 41125- 0315 August, [facility] [id number] [place] [address] 24845- 4429 August, [facility] [address] 93975- 0236 August, [facility] [address] 36094- 8761 August, Fibromyalgia M79.7 [facility] [id number] [place] [address] 46939- 7177 Jul, Hypertension, benign I10 [facility] [address] 42359- 1613 Jul, Fibromyalgia M79.7 [facility] [id number] [place] [address] 07808- 7511 Jul, [facility] [id number] [place] [address] 92641- 0478 Jun, [facility] [id number] [place] [address] 76554- 9062 Jun, Hypertension, benign I10 ; Arthritis M19.90 ; 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 and Uncontrolled type 2 diabetes mellitus without complication, without long-term current use of insulin E11.65 [facility] [id number] [place] [address] 21772 -5340 Jun, Acute nasopharyngitis J00 and BMI 50.0-59.9, adult Z68.43 [facility] [id number] [place] [address] 02895- 8329 Jun, Fibromyalgia M79.7 [facility] [address] [place] [address]- 7118 14 May, 2017 [facility] [id number] [place] [address] 18359- 7956 02 May, 2017 Fibromyalgia M79.7 [facility] [id number] [place] [address] 16404 2546 Apr, Fibromyalgia M79.7 [facility] [id number] [place] [address] 64285 2546 Apr, [facility] [id number] [place] [address] 59858 2546 Apr, [facility] [id number] [place] [address] 38843- 4906 Apr, Arthritis M19.90 [facility] [id number] [place] [address] 21138- 6526 Apr, Arthritis M19.90 [facility] [id number] [place] [address] 42647- 8378 Apr, Arthritis M19.90 and Controlled type 2 diabetes mellitus without complication, without long-term current use of insulin E11.9 [facility] [id number] [place] [address] 81452- 5229 Apr, [facility] [address] [address]- 7656 Apr, Fibromyalgia M79.7 [facility] [address] [address] 2546 Mar, [facility] [address] [address] 2546 Mar, [facility] [id number] [place] [address] 06337 2546 Mar, Fibromyalgia M79.7 [facility] [address] [address] 2546 Feb, [facility] [id number] [place] [address] 66784- 9376 Feb, [facility] [id number] [place] [address] 28318- 3399 Feb, [facility] [id number] [place] [address] 34431- 3065 Feb, Fibromyalgia M79.7 [facility] [id number] [place] [address] 63377- 8047 Feb, Diabetes type 2, uncontrolled E11.65 and Encounter for immunization Z23 [facility] [id number] [place] [address] 63274- 6476 Jan, [facility] [id number] [place] [address] 49562- 7141 Jan, Fibromyalgia M79.7 [facility] [id number] [place] [address] 90517- 3922 Dec, [facility] [id number] [place] [address] 26837- 2725 Dec, Fibromyalgia M79.7 [facility] [id number] [place] [address] 16124- 2684 Nov, [facility] [address] [place] [address] 32476- 4490 Nov, [facility] [id number] [place] [address] 38684- 0050 Nov, 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 and Polyneuropathy G62.9 [facility] [address] [place] [address] 55638- 4162 Nov, [facility] [id number] [place] [address] 49734- 6181 Nov, [facility] [address] [place] [address] 27614- 0037 Oct, Diabetes type 2, uncontrolled E11.65 [facility] [address] [place] [address]- 4103 Oct, Diabetes type 2, uncontrolled E11.65 ; Polyneuropathy G62.9 and Pain in right wrist M25.531 [facility] [id number] [place] [address] 87596- 3515 Oct, [facility] [id number] [place] [address] 34373- 1098 Oct, Pain in left shoulder M25.512 [facility] [id number] [place] [address] 81028- 0494 Sep, [facility] [address] 02708- 3848 Sep, Pain in left shoulder M25.512 [facility] [id number] [place] [address] 56036- 9070 Sep, [facility] [id number] [place] [address] 49647- 8186 August, Pain in left shoulder M25.512 [facility] [id number] [place] [address] 96903- 1419 Jul, [facility] [id number] [place] [address] 89544- 8026 Jul, [facility] [id number] [place] [address] 14026- 2526 Jul, Pain in left shoulder M25.512 [facility] [id number] [place] [address] 57443- 2007 Jun, [facility] [id number] [place] [address] 34863- 5889 Jun, [facility] [id number] [place] [address] 10883- 8541 Jun, Diabetes type 2, uncontrolled E11.65 ; Fibromyalgia M79.7 and Arthritis M19.90 [facility] [id number] [place] [address] 24754- 7694 Jun, Pain in left shoulder M25.512 [facility] [address] [address]- 5086 May, [facility] [address] [address]- 3016 May, Diabetes type 2, controlled E11.9 [facility] [id number] [place] [address] 04638- 1136 17 May, 2016 [facility] [address] [address]- 5153 May, Uncontrolled type 2 diabetes mellitus without complication, without long-term current use of insulin E11.65 [facility] [address] 0076 15 May, 2016 Pain in left shoulder M25.512 [facility] [address]- 8126 03 May, 2016 Diabetes type 2, controlled E11.9 and Uncontrolled type 2 diabetes mellitus without complication, without long-term current use of insulin E11.65 [facility] [address] [address]- 7906 Apr, [facility] [address] [address]- 1646 Apr, [facility] [address] [address]- 0046 Mar, [facility] [address] [address]- 3686 Mar, [facility] [address] [address]- 6436 Mar, [facility] [address] [address]- 2376 Feb, [facility] [address] [address] Feb, Dental examination Z01.20 [facility] [address] [id number] [place] [address]- 7977 Jan, [facility] [address] [id number] [place] [address]- 3736 Dec, [facility] [address] [id number] [place] [address] 2546 Dec, [facility] [address] [id number] [place] [address] 2541 Dec, [facility] [address] [id number] [place] [address]- 3956 Dec, Diabetes type 2, controlled E11.9 [facility] [address] [facility] [id number] [place] [address]- 7877 Nov, [facility] [address] [facility] [id number] [place] [address]- 7493 Nov, [facility] [address] [facility] [id number] [place] [address]- 6988 Nov, [facility] [address] [facility] [id number] [place] [address]- 2334 Nov, [facility] [address] [facility] [id number] [address]- 5809 Oct, [facility] [address] [facility] [id number] [place] [address]- 1527 Oct, [facility] [address] [facility] [id number] [address]- 2547 Oct, [facility] [address] [facility] [id number] [place] 2471 Sep, [facility] [address] [facility] [id number] [place] [address]- 2547 Sep, Diabetes type 2, controlled E11.9 [facility] [address] [facility] [id number] [place] [address]- 3258 Sep, Diabetes type 2, controlled E11.9 [facility] [id number] [address]- 8438 August, [facility] [id number] [place] [address] 70564- 3618 August, [facility] [id number] [place] [address] 76476- 7385 August, Type 2 diabetes mellitus without complication E11.9 and Pain in left shoulder M25.512 [facility] [id number] [place] [address] 93213- 3264 Jul, [facility] [id number] [place] [address] 92936- 6223 Jul, Diabetes type 2, controlled E11.9 and Hypertension, benign I10 [facility] [id number] [place] [address] 12951- 6414 Jun, [facility] [id number] [address]- 2876 Jun, [facility] [id number] [place] [address] 56238- 8700 Jun, Diabetes 250.00 [facility] [id number] [place] [address] 99372- 4345 Jun, [facility] [id number] [place] [address] 61024- 4045 May, Diabetes type 2, uncontrolled E11.65 [facility] [address]005[address] [address]- 9761 May, [facility] [id number] [place] [address] 00425- 4098 Apr, Type 2 diabetes mellitus without complication E11.9 [facility] [address] [address]- 2172 Apr, Encounter for immunization Z23 [facility] [id number] [place] [address]- 6230 Apr, [facility] [address] [id number] [place] [address]- 1912 Mar, [facility] [address] [id number] [place] [address]- 6054 Mar, [facility] [address] [facility] [id number] [place] 0193 Mar, [facility] [address] [facility] [id number] [place] [address]- 4392 Feb, [facility] [address] [facility] [id number] [place] 8483 Jan, [facility] [id number] [place] [address]- 0571 Jan, [facility] [address] [address]- 4368 Jan, [facility] [address] [facility] [id number] [address]- 2604 Dec, Diabetes 250.00 and COPD (chronic obstructive pulmonary disease) 496 [facility] [id number] [address]- 3486 Dec, [facility] [address] [id number] [address]- 2271 Dec, [facility] [address] [facility] [id number] [place] [address]- 2924 Nov, [facility] [address] [facility] [id number] [place] [address]- 5355 Oct, Diabetes 250.00 [facility] [address] [facility] [id number] [address]- 6904 Sep, [facility] [address] [id number] 3452 Sep, [facility] [address] [address]- 9926 Sep, [facility] [address] [address]- 0854 Sep, Diabetes 250.00 [facility] [address] [address]- 8786 Sep, [facility] [address] [place] [address] 95019- 3314 Sep, [facility] [address] [address]- 2128 August, Hypertension, essential, benign 401.1 ; Coronary atherosclerosis of tribe coronary artery 414.01 and Diabetic neuropathy associated with type 2 diabetes mellitus 250.60 [facility] [id number] [address] 29 Jul, 2014 [facility] [id number] [address] Jul, [facility] [id number] [address] Jul, [facility] [id number] [address] Jun, [facility] [id number] [address] Jun, [facility] [id number] [address] Jun, [facility] [id number] [address] Jun, [facility] [id number] [address] Jun, [facility] [id number] [address] May, [facility] [id number] [address] May, [facility] [place] [facility] [address] [id number] [place] [address] May, 2014 [facility] [place] [facility] [address] [id number] [place] [address] May, 2014 [facility] [place] [facility] [address] [id number] [place] [address] May, 2014 [facility] [place] [facility] [address] [id number] [place] [address] May, 2014 [facility] [place] [facility] [address] [id number] [place] [address] May, [facility] [place] [facility] [address] [id number] [place] [address] Apr, [facility] [place] [facility] [address] [id number] [place] [address] Apr, [facility] [place] [facility] [address] [id number] [place] [address] Apr, [facility] [place] [facility] [address] [id number] [place] [address] Apr, [facility] [place] [facility] [address] [facility] [id number] [place] [address] Mar, [facility] [place] [facility] [address] [id number] [place] [address] Mar, [facility] [place] [facility] [address] [id number] [place] [address] Mar, [facility] [place] [facility] [address] [id number] [place] [address] Mar, [facility] [place] [facility] [address] [facility] [id number] [place] [address] Feb, [facility] [place] [facility] [address] [facility] [id number] [place] [address] Feb, [facility] [place] [facility] [address] [id number] [place] [address] Feb, [facility] [place] [facility] [address] [id number] [place] [address] Feb, [facility] [place] [facility] [address] [id number] [place] [address] Feb, [facility] [place] [facility] [address] [id number] [place] [address] Feb, [facility] [place] [facility] [address] [id number] [place] [address] Feb, [facility] [place] [facility] [address] [id number] [place] [address] Jan, [facility] [place] [facility] [address] [id number] [place] [address] Jan, [facility] [place] [facility] [address] [id number] [place] [address] Dec, [facility] [place] [facility] [address] [id number] [place] [address] Dec, [facility] [place] [facility] [address] [id number] [place] [address] 10 Dec, 2013 [facility] [place] [facility] [address] [id number] [place] [address]- [address] 10 Dec, 2013 [facility] [place] [facility] [address] [id number] [place] [address]- [address] 04 Dec, 2013 [facility] [place] [facility] [address] [id number] [place] [address] 04 Dec, 2013 [facility] [place] [facility] [address] [id number] [place] [address]- [address] Dec, [facility] [place] [facility] [address] [id number] [place] [address]- [address] Dec, 2013 [facility] [place] [facility] [address] [id number] [place] [address]- [address] Nov, [facility] [place] [facility] [address] [id number] [place] [address] Nov, [facility] [place] [facility] [address] [id number] [place] [address] Nov, [facility] [place] [facility] [address] [id number] [place] [address]206 Nov, [facility] [place] [facility] [address] [id number] [place] [address] 9551 Oct, [facility] [place] [facility] [address] [id number] [place] [address] Oct, [facility] [place] [facility] [address] [id number] [place] [address] 2806 Oct, [facility] [place] [facility] [address] [id number] [place] [address] 2948 Oct, [facility] [place] [facility] [address] [id number] [place] [address] 4195 Oct, [facility] [place] [facility] [address] [id number] [place] [address] 3461 Oct, [facility] [place] [facility] [address] [id number] [place] [address] 2370 Oct, [facility] [place] [facility] [address] [id number] [place] [address] 6423 Oct, [facility] [place] [facility] [address] [id number] [place] [address] 7729 Sep, [facility] [place] [facility] [address] [id number] [place] [address] 8[address] Sep, [facility] [place] [facility] [address] [id number] [place] [address] 3332 August, [facility] [place] [facility] [address] [id number] [place] [address] 5235 August, [facility] [place] [facility] [address] [id number] [place] [address] 9658 Jul, [facility] [address] [id number] [place] [address] 7535 Jul, [facility] [place] [facility] [address] [id number] [place] [address]- 0516 Jul, [facility] [place] [facility] [address] [id number] [place] [address]- 9435 Jul, [facility] [place] [facility] [address] [id number] [place] [address]- 8170 Jul, [facility] [place] [facility] [address] [id number] [place] [address]- 1370 Jul, [facility] [place] [facility] [address] [id number] [place] [address]- 0272 Jul, [facility] [place] [facility] [address] [id number] [place] [address]- 4677 Jul, [facility] [place] [facility] [address] [id number] [place] [address]- 1782 Jun, [facility] [place] [facility] [address] [id number] [place] [address]- 9718 Jun, [facility] [place] [facility] [address] [id number] [place] [address]- 4738 Jun, [facility] [place] [facility] [address] [id number] [place] [address]- 4482 Jun, [facility] [place] [facility] [address] [id number] [place] [address]- 4748 May, [facility] [place] [facility] [address] [id number] [place] [address] 1913 May, [facility] [place] [facility] [address] [id number] [place] [address]- 8899 Apr, [facility] [place] [facility] [address] [id number] [place] [address]- 2320 Apr, [facility] [place] [facility] [address] [id number] [place] [address]- 9987 20 Mar, 2013 [facility] [place] [facility] [address] [id number] [place] [address]- 0324 20 Mar, 2013 [facility] [place] [facility] [address] [id number] [place] [address]- 7633 18 Mar, 2013 [facility] [place] [facility] [address] [id number] [place] [address]- 1565 18 Mar, 2013 [facility] [place] [facility] [address] [id number] [place] [address]- 9056 18 Mar, 2013 [facility] [place] [facility] [address] [id number] [place] [address]- 2689 Mar, [facility] [place] [facility] [address] [id number] [place] [address]- 2804 Feb, [facility] [place] [facility] [address] [id number] [place] [address]- 5043 Feb, [facility] [place] [facility] [address] [id number] [place] [address]- 6662 Feb, [facility] [place] [facility] [address] [id number] [place] [address]- 6612 Feb, [facility] [place] [facility] [address] [id number] [place] [address]- 7005 Feb, [facility] [place] [facility] [address] [id number] [place] [address]- 9570 18 Feb, 2013 [facility] [place] [facility] [address] [id number] [place] [address]- 4038 Feb, [facility] [place] [facility] [address] [id number] [place] [address]- 1433 12 Feb, 2013 [facility] [place] [facility] [address] [id number] [place] [address]- 7344 15 Jan, 2013 [facility] [place] [facility] [address] [id number] [place] [address]- 3671 15 Jan, 2013 [facility] [place] [facility] [address] [id number] [place] [address]- 2889 14 Jan, 2013 [facility] [place] [facility] [address] [id number] [place] [address]- 9480 14 Jan, 2013 [facility] [place] [facility] [address] [id number] [place] [address]- 5121 18 Dec, 2012 [facility] [place] [facility] [address] [id number] [place] [address]- 1702 Dec, [facility] [place] [facility] [address] [id number] [place] [address]- 2495 2012 [facility] [place] [facility] [address] [id number] [place] [address]- 1729 Nov, [facility] [place] [facility] [address] [id number] [place] [address]- 9203 Nov, [facility] [place] [facility] [address] [id number] [address] 67[address] Oct, [facility] [place] [facility] [address] [id number] [place] [address] 3730 Oct, [facility] [place] [facility] [address] [id number] [place] [address]- 9282 Oct, [facility] [place] [facility] [address] [id number] [address] 6478 Sep, [facility] [place] [facility] [address] [id number] [address] 5464 Sep, [facility] [place] [facility] [address] [id number] [place] [address]- 2299 18 Sep, 2012 [facility] [place] [facility] [address] [id number] [address] 6473 Sep, [facility] [place] [facility] [address] [id number] [place] [address] 1939 Sep, [facility] [place] [facility] [address] [id number] [place] [address]- 7588 Sep, [facility] [address] [id number] [place] [address] 6012 August, [facility] [address] [id number] [place] [address] 2028 August, [facility] [address] [id number] [place] [address] 2207 August, [facility] [address] [id number] [place] [address]- 5870 August, [facility] [address] [id number] [place] [address]- 1435 August, [facility] [address] [id number] [place] [address]- 1025 August, [facility] [address] [id number] [place] [address]- 3042 August, [facility] [address] [id number] [place] [address]- 6388 Jul, [facility] [address] [id number] [place] [address]- 7463 Jul, [facility] [address] [id number] [place] [address]- 6267 Jun, [facility] [address] [id number] [place] [address]- 3555 Jun, [facility] [address] [id number] [place] [address]- 3623 May, [facility] [address] [id number] [place] [address]- 5214 May, [facility] [address] [id number] [place] [address]- 3066 Apr, [facility] [address] [id number] [place] [address]- 3133 Mar, [facility] [place] [facility] [address] [id number] [place] [address]- 7503 Mar, [facility] [place] [facility] [address] [id number] [place] [address]- 2806 Mar, [facility] [place] [facility] [address] [id number] [place] [address] Mar, [facility] [place] [facility] [address] [id number] [place] [address]- 2804 Mar, [facility] [place] [facility] [address] [id number] [place] [address] Mar, [facility] [place] [facility] [address] [id number] [place] [address]- 8304 Feb, [facility] [place] [facility] [address] [facility] [id number] [place] [address]- 9527 Feb, [facility] [place] [facility] [address] [id number] [address]- 3952 Feb, [facility] [place] [facility] [address] [id number] [address]- 5399 Feb, [facility] [place] [facility] [address] [facility] [id number] [address]- 2389 Feb, [facility] [place] [facility] [address] [facility] [id number] [address]- 4745 Feb, [facility] [place] [facility] [address] [id number] [address]- 2282 Feb, [facility] [place] [facility] [address] [id number] [address]- 3913 Feb, [facility] [place] [facility] [address] [facility] [id number] [address]- 4288 Jan, [facility] [place] [facility] [address] [facility] [id number] [address]- 2274 Jan, [facility] [place] [facility] [address] [id number] [address]- 2067 28 Dec, 2011 [facility] [place] [facility] [address] [id number] [place] [address] 2546 19 Dec, 2011 [facility] [place] [facility] [address] [id number] [place] [address] 2546 18 Dec, 2011 [facility] [place] [facility] [address] [id number] [place] [address]- 0146 18 Dec, 2011 [facility] [place] [facility] [address] [id number] [place] [address]- 4490 04 Dec, 2011 [facility] [place] [facility] [address] [id number] [place] [address]- 1206 Nov, [facility] [place] [facility] [address] [id number] [place] [address]- 4445 Oct, [facility] [place] [facility] [address] [facility] [id number] [place] [address]- 6901 Oct, [facility] [place] [facility] [address] [id number] [place] [address]- 5344 Sep, [facility] [place] [facility] [address] [id number] [place] [address]- 0872 Sep, [facility] [place] [facility] [address] [facility] [id number] [place] [address]- 8301 Sep, [facility] [place] [facility] [address] [id number] [place] [address]- 5096 Sep, [facility] [place] [facility] [address] [id number] [place] [address]- 2543 Sep, [facility] [place] [facility] [address] [id number] [place] [address]- 3616 Sep, [facility] [place] [facility] [address] [facility] [id number] [place] [address]- 4455 Sep, [facility] [place] [facility] [address] [facility] [id number] [place] [address]- 5249 Sep, [facility] [place] [facility] [address] [id number] [place] [address]- 7164 August, [facility] [address] [id number] [place] [address]- 3899 August, [facility] [place] [facility] [address] [id number] [place] [address]- 3396 August, [facility] [place] [facility] [address] [id number] [place] [address]- 6685 Jul, [facility] [place] [facility] [address] [id number] [place] [address]- 0995 Jul, [facility] [place] [facility] [address] [id number] [place] [address]- 3123 Jun, [facility] [place] [facility] [address] [id number] [place] [address]- 8470 Jun, [facility] [place] [facility] [address] [id number] [place] [address]- 4139 Jun, [facility] [place] [facility] [address] [id number] [place] [address]- 7886 Jun, [facility] [place] [facility] [address] [id number] [place] [address]- 6279 May, [facility] [place] [facility] [address] [id number] [place] [address]- 9278 May, [facility] [place] [facility] [address] [id number] [place] [address]- 0586 Apr, [facility] [place] [facility] [address] [id number] [place] [address]- 5376 Apr, [facility] [place] [facility] [address] [id number] [place] [address]- 9276 Apr, [facility] [place] [facility] [address] [id number] [place] [address]- 5110 14 Mar, 2011 [facility] [place] [facility] [address] [id number] [place] [address]- 5752 Mar, [facility] [place] [facility] [address] [id number] [place] [address]- 8927 Mar, [facility] [place] [facility] [address] [id number] [place] [address]- 3653 Feb, [facility] [place] [facility] [address] [facility] [id number] [place] [address]- 1971 Feb, [facility] [place] [facility] [address] [id number] [address]- 7308 Feb, [facility] [place] [facility] [address] [id number] [place] [address]- 8877 Feb, [facility] [place] [facility] [address] [id number] [address]- 0125 Jan, [facility] [place] [facility] [address] [id number] [place] [address]- 7709 Jan, [facility] [place] [facility] [address] [id number] [address]- 2808 Jan, [facility] [place] [facility] [address] [id number] [address]- 1411 Dec, [facility] [place] [facility] [address] [facility] [id number] [place] [address]- 5388 Oct, [facility] [place] [facility] [address] [id number] [address]- 5255 Mar, [facility] [place] [facility] [address] [id number] [address]- 9087 Feb, [facility] [place] [facility] [address] [id number] [place] [address]- 2403 Feb, [facility] [place] [facility] [address] [facility] [id number] [address]- 3754 16 May, 2009 [facility] [place] [facility] [address] [id number] [address]- 2597 Apr, [facility] [place] [facility] [address] [facility] [id number] [address] 2546 Mar, [facility] [address] [id number] [address]- 8403 Jan, [facility] [address] [id number] [address]- 5672 Oct, [facility] [address] [facility] [id number] [place] [address]- 8967 Jul, [facility] [address] [id number] [address]- 2547 Mar, [facility] [address] [id number] [address]- 4477 Feb, [facility] [address] [id number] [address]- 7232 Jan, IMMUNIZATIONS No Known Immunizations SOCIAL HISTORY Never Assessed REASON FOR VISIT Medication refill request PLAN OF CARE VITAL SIGNS MEDICATIONS Medication Instructions Dosage Frequency Start Date End Date Duration Status Trulicity 1.5 MG/0.5ML Subcutaneous once weekly Inject 0.5 ml Oct, 30 days Active RESULTS No Results PROCEDURES [...]
--- OUTSIDE RECORDS SUMMARY | 2018-07-05 12:28 | XMS REPORT ---
Author Author KATHYA FISCHER Organization [facility] Address [address] [place] [address] Care Team Providers Care Tile Shader Name Role Phone KATHYA FISCHER Unavailable PROBLEMS Type Condition ICD9-CM Code IEP26-PI Code Onset Dates Condition Status SNOMED Code Problem Arthritis M19.90 Active 6055590 Problem 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 Active 77142829 Problem Polyneuropathy G62.9 Active 38730390 Problem Other male erectile dysfunction N52.8 Active 809031797 Problem Constipation K59.00 Active 12420308 Problem Type 2 diabetes mellitus with 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 E11.65 Active 145122938 Problem Controlled type 2 diabetes mellitus without complication, without long -term current use of insulin E11.9 Active 317007618 Problem penitentiary current use of insulin Z79.4 Active 752491737 Problem Neuropathy G62.9 Active 327430901 Problem Obstructive sleep apnea G47.33 Active 15019099 Problem Hypertension, benign I10 Active 97683952 Problem Uncontrolled type 2 diabetes mellitus without complication, without long-term current use of insulin E11.65 Active 939538113 Problem Stress incontinence of urine N39.3 Active 68044653 Problem Fibromyalgia M79.7 Active 353542678 ALLERGIES No Information ENCOUNTERS Encounter Location Date Diagnosis [facility] [id number] [address] Dec, [facility] [id number], [place] [address] 8198 Dec, [facility] [id number] [place] [address] 10762- 4479 Dec, [facility] [id number] [place] [address] 58555- 2194 Nov, [facility] [id number] [place] [address] 11074- 2516 Nov, Therapeutic drug monitoring Z51.81 [facility] [id number] [place] [address] 22783- 3734 Nov, [facility] [id number] [place] [address] 09869- 2026 Nov, Therapeutic drug monitoring Z51.81 ; Fibromyalgia M79.7 and Controlled type 2 diabetes mellitus without complication, without long-term current use of insulin E11.9 [facility] [id number] [place] [address] 61325- 5217 Nov, Type 2 diabetes mellitus with 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 E11.65 [facility] [id number] [place] [address] 38657- 0902 Nov, [facility] [id number] [place] [address] 65450- 4346 Nov, [facility] [id number] [place] [address] 69541- 0679 Nov, Type 2 diabetes mellitus with 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 E11.65 [facility] [id number] [place] [address] 41754- 5736 Nov, [facility] [id number] [place] [address] 87443- 8783 Nov, [facility] [id number] [place] [address] 31972- 1954 Nov, Constipation K59.00 [facility] [id number] [place] [address] 81260- 7833 Oct, Diabetes type 2, controlled E11.9 [facility] [id number] [place] [address] 75827- 6313 Oct, Type 2 diabetes mellitus with 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 E11.65 ; 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 and Neuropathy G62.9 [facility] [id number] [place] [address] 67919- 5611 Oct, [facility] [id number] [place] [address] 26208- 4468 Oct, [facility] [address], [place] [address]- 0743 Oct, [facility] [address] 3[address] Oct, [facility] [address], [place] [address]- 9138 Oct, [facility] [id number] 6245 Oct, [facility] [address], [place] [address]- 1250 Oct, [facility] [address], [place] [address]- 5493 Sep, [facility] [address], [place] [address]- 2339 Sep, Uncontrolled type 2 diabetes mellitus without complication, without long-term current use of insulin E11.65 [facility] [address], [place] [address]- 4153 Sep, Hypertension, benign I10 ; Fibromyalgia M79.7 ; Controlled type 2 diabetes mellitus without complication, without long-term current use of insulin E11.9 and Uncontrolled type 2 diabetes mellitus without complication, without long-term current use of insulin E11.65 [facility] [address], [place] [address]- 7944 Sep, [facility] [address], [place] [address]- 8162 Sep, Uncontrolled type 2 diabetes mellitus without complication, without long-term current use of insulin E11.65 [facility] [address], [place] [address]- 5326 Sep, [facility] [address], [place] [address]- 7055 Sep, [facility] [id number] [place] [address] 14432- 7022 Sep, Uncontrolled type 2 diabetes mellitus without complication, without long-term current use of insulin E11.65 and Fibromyalgia M79.7 [facility] [id number] [place] [address] 04837- 9415 August, [facility] [id number] [place] [address] 03679- 5359 August, [facility] [address] 79216- 7299 August, [facility] [address] 85182- 2281 August, Fibromyalgia M79.7 [facility] [id number] [place] [address] 92361- 5679 Jul, Hypertension, benign I10 [facility] [address] 97091- 2282 Jul, Fibromyalgia M79.7 [facility] [id number] [place] [address] 25936- 5134 Jul, [facility] [id number] [place] [address] 90928- 5411 Jun, [facility] [id number] [place] [address] 36871- 7179 Jun, Hypertension, benign I10 ; Arthritis M19.90 ; 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 Z79.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 and Uncontrolled type 2 diabetes mellitus without complication, without long-term current use of insulin E11.65 [facility] [id number] [place] [address] 98279 -3383 Jun, Acute nasopharyngitis J00 and BMI 50.0-59.9, adult Z68.43 [facility] [id number] [place] [address] 02332- 5726 Jun, Fibromyalgia M79.7 [facility] [address] [place] [address]- 9791 14 May, 2017 [facility] [id number] [place] [address] 15753- 3426 02 May, 2017 Fibromyalgia M79.7 [facility] [id number] [place] [address] 31272 2546 Apr, Fibromyalgia M79.7 [facility] [id number] [place] [address] 00499 2546 Apr, [facility] [id number] [place] [address] 48153 2546 Apr, [facility] [id number] [place] [address] 18702- 7596 Apr, Arthritis M19.90 [facility] [id number] [place] [address] 54692- 0276 Apr, Arthritis M19.90 [facility] [id number] [place] [address] 88462- 6183 Apr, Arthritis M19.90 and Controlled type 2 diabetes mellitus without complication, without long-term current use of insulin E11.9 [facility] [id number] [place] [address] 98363- 4751 Apr, [facility] [address], [place] [address]- 0346 Apr, Fibromyalgia M79.7 [facility] [address], [place] [address] 2546 Mar, [facility] [address], [place] [address] 2546 Mar, [facility] [id number] [place] [address] 57408 2546 Mar, Fibromyalgia M79.7 [facility] [address], [place] [address] 2546 Feb, [facility] [id number] [place] [address] 58104- 3971 Feb, [facility] [id number] [place] [address] 72656- 8036 Feb, [facility] [id number] [place] [address] 70577- 7300 Feb, Fibromyalgia M79.7 [facility] [id number] [place] [address] 86384- 7042 Feb, Diabetes type 2, uncontrolled E11.65 and Encounter for immunization Z23 [facility] [id number] [place] [address] 56890- 2436 Jan, [facility] [id number] [place] [address] 55569- 3631 Jan, Fibromyalgia M79.7 [facility] [id number] [place] [address] 19116- 9936 Dec, [facility] [id number] [place] [address] 01622- 5580 Dec, Fibromyalgia M79.7 [facility] [id number] [place] [address] 53277- 0975 Nov, [facility] [id number] [place] [address] 54108- 4733 Nov, [facility] [id number] [place] [address] 24637- 0540 Nov, 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 and Polyneuropathy G62.9 [facility] [id number] [place] [address] 58654- 3668 Nov, [facility] [id number] [place] [address] 51781- 1060 Nov, [facility] [id number] [place] [address] 29296- 5215 Oct, Diabetes type 2, uncontrolled E11.65 [facility] [address] [place] [address]- 6503 Oct, Diabetes type 2, uncontrolled E11.65 ; Polyneuropathy G62.9 and Pain in right wrist M25.531 [facility] [id number] [place] [address] 37218- 6030 Oct, [facility] [id number] [place] [address] 14010- 1653 Oct, Pain in left shoulder M25.512 [facility] [id number] [place] [address] 54192- 8594 Sep, [facility] [address] 22707- 3949 Sep, Pain in left shoulder M25.512 [facility] [id number] [place] [address] 97897- 6271 Sep, [facility] [id number] [place] [address] 07178- 1541 August, Pain in left shoulder M25.512 [facility] [id number] [place] [address] 67903- 1922 Jul, [facility] [id number] [place] [address] 09066- 4525 Jul, [facility] [id number] [place] [address] 99391- 7870 Jul, Pain in left shoulder M25.512 [facility] [id number] [place] [address] 77957- 6551 Jun, [facility] [id number] [place] [address] 23117- 9985 Jun, [facility] [id number] [place] [address] 11607- 1240 Jun, Diabetes type 2, uncontrolled E11.65 ; Fibromyalgia M79.7 and Arthritis M19.90 [facility] [id number] [place] [address] 89583- 2392 Jun, Pain in left shoulder M25.512 [facility] [address], [place] [address]- 3676 May, [facility] [address], [place] [address]- 7576 May, Diabetes type 2, controlled E11.9 [facility] [id number] [place] [address] 76549- 2286 17 May, 2016 [facility] [address], [place] [address]- 3091 May, Uncontrolled type 2 diabetes mellitus without complication, without long-term current use of insulin E11.65 [facility] [address]- 8236 15 May, 2016 Pain in left shoulder M25.512 [facility] [address]- 2936 03 May, 2016 Diabetes type 2, controlled E11.9 and Uncontrolled type 2 diabetes mellitus without complication, without long-term current use of insulin E11.65 [facility] [address], [place] [address]- 7106 Apr, [facility] [address], [place] [address]- 2306 Apr, [facility] [address], [place] [address]- 7476 Mar, [facility] [address], [place] [address]- 0286 Mar, [facility] [address], [place] [address]- 3376 Mar, [facility] [address], [place] [address]- 1456 Feb, [facility] [id number] [address] Feb, Dental examination Z01.20 [facility] [address] [id number] [place] [address]- 4885 Jan, [facility] [address] [id number] [place] [address]- 9186 Dec, [facility] [address] [id number] [place] [address] 2546 Dec, [facility] [address] [id number] [place] [address] 2544 Dec, [facility] [address] [id number] [place] [address]- 3434 Dec, Diabetes type 2, controlled E11.9 [facility] [address] [facility] [id number] [place] [address]- 3536 Nov, [facility] [address] [facility] [id number] [place] [address]- 7032 Nov, [facility] [address] [facility] [id number] [place] [address]- 2950 Nov, [facility] [address] [facility] [id number] [place] [address]- 8058 Nov, [facility] [address] [facility] [id number], [place] [address]- 0352 Oct, [facility] [address] [facility] [id number] [place] [address]- 8604 Oct, [facility] [address] [facility] [id number] [address]- 2540 Oct, [facility] [address] [facility] [id number]- 6319 Sep, [facility] [address] [facility] [id number] [address]- 2547 Sep, Diabetes type 2, controlled E11.9 [facility] [address] [facility] [id number] [place] [address]- 8249 Sep, Diabetes type 2, controlled E11.9 [facility] [id number] [address]- 5666 August, [facility] [id number] [place] [address] 79084- 9669 August, [facility] [id number] [place] [address] 24695- 8440 August, Type 2 diabetes mellitus without complication E11.9 and Pain in left shoulder M25.512 [facility] [id number] [place] [address] 10422- 4363 Jul, [facility] [id number] [place] [address] 73898- 3495 Jul, Diabetes type 2, controlled E11.9 and Hypertension, benign I10 [facility] [id number] [place] [address] 92722- 9045 Jun, [facility] [id number] [address]- 7429 Jun, [facility] [id number] [place] [address] 04955- 2133 Jun, Diabetes 250.00 [facility] [id number] [place] [address] 31167- 3446 Jun, [facility] [id number] [place] [address] 93542- 3364 May, Diabetes type 2, uncontrolled E11.65 [facility] [address], [place] [address]- 3408 May, [facility] [id number] [place] [address] 73153- 8769 Apr, Type 2 diabetes mellitus without complication E11.9 [facility] [address], [place] [address]- 0417 Apr, Encounter for immunization Z23 [facility] [address] [place] [address]- 7664 Apr, [facility] [address] [id number] [place] [address]- 1994 Mar, [facility] [address] [id number] [place] [address]- 7011 Mar, [facility] [address] [facility] [id number] [place] 2226 Mar, [facility] [address] [facility] [id number] [place] [address]- 7736 Feb, [facility] [address] [facility] [id number] [place] 3356 Jan, [facility] [id number] [place] [address]- 8269 Jan, [facility] [address], [place] [address]- 4569 Jan, [facility] [address] [facility] [id number], [place] [address]- 6566 Dec, Diabetes 250.00 and COPD (chronic obstructive pulmonary disease) 496 [facility] [id number] [address]- 8049 Dec, [facility] [id number] [address]- 6084 Dec, [facility] [address] [facility] [id number], [place] [address]- 1838 Nov, [facility] [address] [facility] [id number] [place] [address]- 0592 Oct, Diabetes 250.00 [facility] [address] [facility] [id number], [place] [address]- 9652 Sep, [facility] [id number] 0535 Sep, [facility] [address], [place] [address]- 4100 Sep, [facility] [address], [place] [address]- 0031 Sep, Diabetes 250.00 [facility] [address], [place] [address]- 4766 Sep, [facility] [id number] [place] [address] 29789- 1299 Sep, [facility] [id number] [address]- 7640 August, Hypertension, essential, benign 401.1 ; Coronary atherosclerosis of [place] coronary artery 414.01 and Diabetic neuropathy associated with type 2 diabetes mellitus 250.60 [facility] [address], [place] [address]- 8958 29 Jul, 2014 [facility] [id number] [address]- 8592 Jul, [facility] [address], [place] [address]- 4234 Jul, [facility] [id number], [place] [address]- 9076 Jun, [facility] [address], [place] [address]- 4590 Jun, [facility] [id number], [place] [address]- 0676 Jun, [facility] [id number], [place] [address]- 2546 Jun, [facility] [id number], [place] [address]- 2406 Jun, [facility] [address], [place] [address]- 8696 May, [facility] [address], [place] [address]- 7344 May, [facility] [place] [facility] [address] [id number] [place] [address]- 9196 May, 2014 [facility] [place] [facility] [address] [id number] [place] [address]- 3986 May, 2014 [facility] [place] [facility] [address] [id number] [place] [address]- 3697 May, 2014 [facility] [place] [facility] [address] [id number] [place] [address]- 0667 May, 2014 [facility] [place] [facility] [address] [id number] [place] [address]- 3925 May, [facility] [place] [facility] [address] [id number] [place] [address]- 0834 Apr, [facility] [place] [facility] [address] [id number] [place] [address]- 6921 Apr, [facility] [place] [facility] [address] [id number] [place] [address]- 9974 Apr, [facility] [place] [facility] [address] [id number] [place] [address]- 9004 Apr, [facility] [place] [facility] [address] [facility] [id number] [place] [address]- 7088 Mar, [facility] [place] [facility] [address] [id number] [place] [address]- 1421 Mar, [facility] [place] [facility] [address] [id number] [place] [address]- 9752 Mar, [facility] [place] [facility] [address] [id number] [place] [address]- 5647 Mar, [facility] [place] [facility] [address] [facility] [id number] [place] [address]- 8337 Feb, [facility] [place] [facility] [address] [facility] [id number] [place] [address] Feb, [facility] [place] [facility] [address] [id number] [place] [address] Feb, [facility] [place] [facility] [address] [id number] [place] [address] Feb, [facility] [place] [facility] [address] [id number] [place] [address] Feb, [facility] [place] [facility] [address] [id number] [place] [address] Feb, [facility] [place] [facility] [address] [id number] [place] [address] Feb, [facility] [place] [facility] [address] [id number] [place] [address] Jan, [facility] [place] [facility] [address] [id number] [place] [address] Jan, [facility] [place] [facility] [address] [id number] [place] [address] Dec, [facility] [place] [facility] [address] [id number] [place] [address] Dec, [facility] [place] [facility] [address] [id number] [place] [address] 10 Dec, 2013 [facility] [place] [facility] [address] [id number] [place] [address] 10 Dec, 2013 [facility] [place] [facility] [address] [id number] [place] [address] 04 Dec, 2013 [facility] [place] [facility] [address] [id number] [place] [address] 04 Dec, 2013 [facility] [place] [facility] [address] [id number] [place] [address] Dec, [facility] [place] [facility] [address] [id number] [place] [address] Dec, 2013 [facility] [place] [facility] [address] [id number] [place] [address] Nov, [facility] [place] [facility] [address] [id number] [place] [address] Nov, [facility] [place] [facility] [address] [id number] [place] [address] Nov, [facility] [place] [facility] [address] [id number] [place] [address] Nov, [facility] [place] [facility] [address] [id number] [place] [address] Oct, [facility] [place] [facility] [address] [id number] [place] [address] Oct, [facility] [place] [facility] [address] [id number] [place] [address] Oct, [facility] [place] [facility] [address] [id number] [place] [address] Oct, [facility] [place] [facility] [address] [id number] [place] [address] 97[address] Oct, [facility] [place] [facility] [address] [id number] [place] [address] 9[address] Oct, [facility] [place] [facility] [address] [id number] [place] [address] Oct, [facility] [place] [facility] [address] [id number] [place] [address] 8446 Oct, [facility] [place] [facility] [address] [id number] [place] [address] 6[address] Sep, [facility] [place] [facility] [address] [id number] [place] [address] Sep, [facility] [place] [facility] [address] [id number] [place] [address] August, [facility] [place] [facility] [address] [id number] [place] [address] August, [facility] [place] [facility] [address] [id number] [place] [address] Jul, [facility] [address] [id number] [place] [address]- 1252 Jul, [facility] [place] [facility] [address] [id number] [place] [address] Jul, [facility] [place] [facility] [address] [id number] [place] [address] 14[address] Jul, [facility] [place] [facility] [address] [id number] [place] [address]- 4589 Jul, [facility] [place] [facility] [address] [id number] [place] [address]- 58[address] Jul, [facility] [place] [facility] [address] [id number] [place] [address]- 6[address] Jul, [facility] [place] [facility] [address] [id number] [place] [address]- 9[address] Jul, [facility] [place] [facility] [address] [id number] [place] [address]- 4318 Jun, [facility] [place] [facility] [address] [id number] [place] [address]- 404[address] Jun, [facility] [place] [facility] [address] [id number] [place] [address]- 8039 Jun, [facility] [place] [facility] [address] [id number] [place] [address]- 3486 Jun, [facility] [place] [facility] [address] [id number] [place] [address] 23[address] May, [facility] [place] [facility] [address] [id number] [place] [address]- 4909 May, [facility] [place] [facility] [address] [id number] [place] [address]- 6147 Apr, [facility] [place] [facility] [address] [id number] [place] [address]- 7053 Apr, [facility] [place] [facility] [address] [id number] [place] [address]- 7776 20 Mar, 2013 [facility] [place] [facility] [address] [id number] [place] [address]- 4768 20 Mar, 2013 [facility] [place] [facility] [address] [id number] [place] [address]- 8387 18 Mar, 2013 [facility] [place] [facility] [address] [id number] [place] [address]- 6417 18 Mar, 2013 [facility] [place] [facility] [address] [id number] [place] [address]- 4693 18 Mar, 2013 [facility] [place] [facility] [address] [id number] [place] [address]- 6053 Mar, [facility] [place] [facility] [address] [id number] [place] [address]- 7182 Feb, [facility] [place] [facility] [address] [id number] [place] [address]- 2495 Feb, [facility] [place] [facility] [address] [id number] [place] [address]- 1838 Feb, [facility] [place] [facility] [address] [id number] [place] [address]- 4128 Feb, [facility] [place] [facility] [address] [id number] [place] [address]- 6885 Feb, [facility] [place] [facility] [address] [id number] [place] [address]- 7750 18 Feb, 2013 [facility] [place] [facility] [address] [id number] [place] [address]- 7655 Feb, [facility] [place] [facility] [address] [id number] [place] [address]- 5607 12 Feb, 2013 [facility] [place] [facility] [address] [id number] [place] [address]- 6057 15 Jan, 2013 [facility] [place] [facility] [address] [id number] [place] [address]- 9149 15 Jan, 2013 [facility] [place] [facility] [address] [id number] [place] [address]- 8131 14 Jan, 2013 [facility] [place] [facility] [address] [id number] [place] [address]- 8557 14 Jan, 2013 [facility] [place] [facility] [address] [id number] [place] [address]- 4983 18 Dec, 2012 [facility] [place] [facility] [address] [id number] [place] [address]- 8857 Dec, [facility] [place] [facility] [address] [id number] [place] [address]- 4656 2012 [facility] [place] [facility] [address] [id number] [place] [address]- 7789 Nov, [facility] [place] [facility] [address] [id number] [place] [address]- 8143 Nov, [facility] [place] [facility] [address] [id number], [place] [address] Oct, [facility] [place] [facility] [address] [id number] [place] [address]- 5230 Oct, [facility] [place] [facility] [address] [id number] [place] [address]- 9087 Oct, [facility] [place] [facility] [address] [id number], [place] [address] 98[address] Sep, [facility] [place] [facility] [address] [id number], [place] [address]- 7699 Sep, [facility] [place] [facility] [address] [id number] [place] [address]- 1687 18 Sep, 2012 [facility] [place] [facility] [address] [id number], [place] [address]- 1707 Sep, [facility] [place] [facility] [address] [id number] [place] [address]- 1133 Sep, [facility] [place] [facility] [address] [id number] [place] [address]- 5660 Sep, [facility] [address] [id number] [place] [address]- 7828 August, [facility] [address] [id number] [place] [address]- 9950 August, [facility] [address] [id number] [place] [address] 5500 August, [facility] [address] [id number] [place] [address]- 6225 August, [facility] [address] [id number] [place] [address]- 2236 August, [facility] [address] [id number] [place] [address]- 0871 August, [facility] [address] [id number] [place] [address]- 2819 August, [facility] [address] [id number] [place] [address]- 8157 Jul, [facility] [address] [id number] [place] [address]- 0754 Jul, [facility] [address] [id number] [place] [address]- 7439 Jun, [facility] [address] [id number] [place] [address]- 1460 Jun, [facility] [address] [id number] [place] [address]- 6651 May, [facility] [address] [id number] [place] [address]- 1501 May, [facility] [address] [id number] [place] [address]- 6946 Apr, [facility] [address] [id number] [place] [address]- 1884 Mar, [facility] [place] [facility] [address] [id number] [place] [address]- 4767 Mar, [facility] [place] [facility] [address] [id number] [place] [address]- 2877 Mar, [facility] [place] [facility] [address] [id number] [place] [address] Mar, [facility] [place] [facility] [address] [id number] [place] [address]- 7994 Mar, [facility] [place] [facility] [address] [id number] [place] [address] Mar, [facility] [place] [facility] [address] [id number] [place] [address]- 7468 Feb, [facility] [place] [facility] [address] [facility] [id number] [place] [address]- 0129 Feb, [facility] [place] [facility] [address] [id number], [place] [address]- 6189 Feb, [facility] [place] [facility] [address] [id number], [place] [address]- 2295 Feb, [facility] [place] [facility] [address] [facility] [id number], [place] [address]- 9859 Feb, [facility] [place] [facility] [address] [facility] [id number], [place] [address]- 2649 Feb, [facility] [place] [facility] [address] [id number], [place] [address]- 3507 Feb, [facility] [place] [facility] [address] [id number], [place] [address]- 9855 Feb, [facility] [place] [facility] [address] [facility] [id number], [place] [address]- 4008 Jan, [facility] [place] [facility] [address] [facility] [id number], [place] [address]- 4595 Jan, [facility] [place] [facility] [address] [id number], [place] [address]- 2536 28 Dec, 2011 [facility] [place] [facility] [address] [id number] [place] [address] 2546 19 Dec, 2011 [facility] [place] [facility] [address] [id number] [place] [address] 2546 18 Dec, 2011 [facility] [place] [facility] [address] [id number] [place] [address]- 2816 18 Dec, 2011 [facility] [place] [facility] [address] [id number] [place] [address]- 4820 04 Dec, 2011 [facility] [place] [facility] [address] [id number] [place] [address]- 7582 Nov, [facility] [place] [facility] [address] [id number] [place] [address]- 4600 Oct, [facility] [place] [facility] [address] [facility] [id number] [place] [address]- 5853 Oct, [facility] [place] [facility] [address] [id number] [place] [address]- 1475 Sep, [facility] [place] [facility] [address] [id number] [place] [address]- 7071 Sep, [facility] [place] [facility] [address] [facility] [id number] [place] [address]- 9581 Sep, [facility] [place] [facility] [address] [id number] [place] [address]- 8253 Sep, [facility] [place] [facility] [address] [id number] [place] [address]- 2547 Sep, [facility] [place] [facility] [address] [id number] [place] [address]- 1027 Sep, [facility] [place] [facility] [address] [facility] [id number] [place] [address]- 6389 Sep, [facility] [place] [facility] [address] [facility] [id number] [place] [address]- 2382 Sep, [facility] [place] [facility] [address] [id number] [place] [address]- 4752 August, [facility] [address] [id number] [place] [address]- 8276 August, [facility] [place] [facility] [address] [id number] [place] [address]- 4806 August, [facility] [place] [facility] [address] [id number] [place] [address]- 5820 Jul, [facility] [place] [facility] [address] [id number] [place] [address]- 1487 Jul, [facility] [place] [facility] [address] [id number] [place] [address]- 5665 Jun, [facility] [place] [facility] [address] [id number] [place] [address]- 3962 Jun, [facility] [place] [facility] [address] [id number] [place] [address]- 2192 Jun, [facility] [place] [facility] [address] [id number] [place] [address]- 3329 Jun, [facility] [place] [facility] [address] [id number] [place] [address]- 0038 May, [facility] [place] [facility] [address] [id number] [place] [address]- 9651 May, [facility] [place] [facility] [address] [id number] [place] [address]- 3327 Apr, [facility] [place] [facility] [address] [id number] [place] [address]- 2577 Apr, [facility] [place] [facility] [address] [id number] [place] [address]- 8674 Apr, [facility] [place] [facility] [address] [id number] [place] [address]- 4452 14 Mar, 2011 [facility] [place] [facility] [address] [id number] [place] [address]- 7773 Mar, [facility] [place] [facility] [address] [id number] [place] [address]- 3500 Mar, [facility] [place] [facility] [address] [id number] [place] [address]- 5654 Feb, [facility] [place] [facility] [address] [facility] [id number] [place] [address]- 7648 Feb, [facility] [place] [facility] [address] [id number], [place] [address]- 7796 Feb, [facility] [place] [facility] [address] [id number] [place] [address]- 1647 Feb, [facility] [place] [facility] [address] [id number], [place] [address]- 2236 Jan, [facility] [place] [facility] [address] [id number] [place] [address]- 3529 Jan, [facility] [place] [facility] [address] [id number], [place] [address]- 3007 Jan, [facility] [place] [facility] [address] [id number], [place] [address]- 4752 Dec, [facility] [place] [facility] [address] [facility] [id number], [place] [address]- 4045 Oct, [facility] [place] [facility] [address] [id number], [place] [address]- 8341 Mar, [facility] [place] [facility] [address] [id number], [place] [address]- 2041 Feb, [facility] [place] [facility] [address] [id number], [place] [address]- 7169 Feb, [facility] [place] [facility] [address] [facility] [id number], [place] [address]- 9786 16 May, 2009 [facility] [place] [facility] [address] [id number], [place] [address]- 6617 Apr, [facility] [place] [facility] [address] [id number], [place] [address]- 7375 Mar, [facility] [address] [id number], [place] [address]- 1398 Jan, [facility] [id number], [place] [address]- 0886 Oct, [facility] [address] [id number], [place] [address]- 3793 Jul, [facility] [id number], [place] [address]- 2114 Mar, [facility] [address] [id number], [place] [address]- 8926 Feb, [facility] [address] [id number], [place] [address]- 4842 Jan, IMMUNIZATIONS No Known Immunizations SOCIAL HISTORY Never Assessed REASON FOR VISIT ED PLAN OF CARE VITAL SIGNS MEDICATIONS Unknown [...]
--- OUTSIDE RECORDS SUMMARY | 2018-07-05 12:29 | XMS REPORT ---
Author Author KATHYA FISCHER Organization [facility] Address [address] [place] [address] Care Team Providers Care Snow Shoveler Name Role Phone KATHYA FISCHER Unavailable PROBLEMS Type Condition ICD9-CM Code TSB18-QZ Code Onset Dates Condition Status SNOMED Code Problem Arthritis M19.90 Active 3179938 Problem 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 Active 47448502 Problem Polyneuropathy G62.9 Active 16272518 Problem Other male erectile dysfunction N52.8 Active 695302767 Problem Constipation K59.00 Active 64077643 Problem Type 2 diabetes mellitus with 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 E11.65 Active 210798994 Problem Controlled type 2 diabetes mellitus without complication, without long -term current use of insulin E11.9 Active 172732810 Problem [facility] current use of insulin Z79.4 Active 083262002 Problem Neuropathy G62.9 Active 127379617 Problem Obstructive sleep apnea G47.33 Active 86764202 Problem Hypertension, benign I10 Active 83879326 Problem Uncontrolled type 2 diabetes mellitus without complication, without long-term current use of insulin E11.65 Active 632224192 Problem Stress incontinence of urine N39.3 Active 88688440 Problem Fibromyalgia M79.7 Active [id number] ALLERGIES No Information ENCOUNTERS Encounter Location Date Diagnosis [facility] [address], [place] [address] Dec, [facility] [address], [place] [address] Dec, [facility] [id number] [place] [address] 83704- 2914 Nov, [facility] [place] [id number] [place] [address] 46651- 1381 Nov, Therapeutic drug monitoring Z51.81 [facility] [place] [id number] [place] [address] 85729- 9977 Nov, [facility] [place] [id number] [place] [address] 97361- 3649 Nov, Therapeutic drug monitoring Z51.81 ; Fibromyalgia M79.7 and Controlled type 2 diabetes mellitus without complication, without long-term current use of insulin E11.9 [facility] [place] [id number] [place] [address] 14037- 5121 Nov, Type 2 diabetes mellitus with 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 E11.65 [facility] [place] [id number] [place] [address] 49994- 0668 Nov, [facility] [place] [address] 7[address]32- 0988 Nov, [facility] [place] [id number] [place] [address] 72122- 3104 Nov, Type 2 diabetes mellitus with 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 E11.65 [facility] [place] [address] 05486- 6287 Nov, [facility] [place] [id number] [place] [address] 10317- 1106 Nov, [facility] [place] [id number] [place] [address] 89491- 3112 Nov, Constipation K59.00 [facility] [place] [id number] [place] [address] 50252- 6234 Oct, Diabetes type 2, controlled E11.9 [facility] [place] [id number] [place] [address] 85940- 2084 Oct, Type 2 diabetes mellitus with 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 E11.65 ; 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 and Neuropathy G62.9 [facility] [place] [id number] [place] [address] 20883- 6389 Oct, [facility] [place] [id number] [place] [address] 69586- 0804 Oct, [facility] [place] [id number] [place] [address] 68095- 8075 Oct, [facility] [place] [address], [place] [address] 5616 Oct, [facility] [place] [address] 4[address] Oct, [facility] [place] [address] [address] 6815 Oct, [facility] [place] [id number] [place] [address] 132213- 0303 Oct, [facility] [place] [id number] [place] [address] 38535- 0347 Sep, [facility] [place] [id number] [place] [address] 82338- 0561 Sep, Uncontrolled type 2 diabetes mellitus without complication, without long-term current use of insulin E11.65 [place] [id number] [place] [address] 38942- 4477 Sep, Hypertension, benign I10 ; Fibromyalgia M79.7 ; Controlled type 2 diabetes mellitus without complication, without long-term current use of insulin E11.9 and Uncontrolled type 2 diabetes mellitus without complication, without long-term current use of insulin E11.65 [place] [address], [place] [address]- 7566 Sep, [facility] [place] [address], [place] [address]- 3588 Sep, Uncontrolled type 2 diabetes mellitus without complication, without long-term current use of insulin E11.65 [place] [address], [place] [address]- 2556 Sep, [place] [address] 9738 Sep, [facility] [place] [id number] [address] 1892 Sep, Uncontrolled type 2 diabetes mellitus without complication, without long-term current use of insulin E11.65 and Fibromyalgia M79.7 [facility] [place] [id number] [place] [address] 21073- 2561 August, [facility] [place] [id number] [place] [address] 31018- 6472 August, [facility] [place] [id number] [place] [address] 27554- 2813 August, [facility] [place] [address] 26796- 1681 August, Fibromyalgia M79.7 [facility] [place] [address] 64016- 9725 Jul, Hypertension, benign I10 [facility] [place] [address] 96237- 2289 Jul, Fibromyalgia M79.7 [facility] [place] [address] 70380- 1638 Jul, [facility] [place] [id number] [place] [address] 89652- 7071 Jun, [facility] [place] [address] 28498- 9880 Jun, Hypertension, benign I10 ; Arthritis M19.90 ; [facility] current use 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 Z79.891 and Uncontrolled type 2 diabetes mellitus without complication, without long-term current use of insulin E11.65 [facility] [id number] [place] [address] 27831 -0306 Jun, Acute nasopharyngitis J00 and BMI 50.0-59.9, adult Z68.43 [facility] [place] [address] 75916- 8320 Jun, Fibromyalgia M79.7 [facility] [place] [id number] [place] [address] 33168- 5658 May, [facility] [place] [address] [place] [address]- 6766 May, Fibromyalgia M79.7 [facility] [place] [id number] [place] [address] 20462 2546 Apr, Fibromyalgia M79.7 [facility] [place] [address], [place] [address] 2546 Apr, [facility] [place] [id number] [place] [address] 13283 2546 Apr, [facility] [place] [id number] [place] [address] 64830 2546 Apr, Arthritis M19.90 [facility] [place] [id number] [place] [address] 48784 2546 Apr, Arthritis M19.90 [facility] [place] [id number] [place] [address] 32148 2546 Apr, Arthritis M19.90 and Controlled type 2 diabetes mellitus without complication, without long-term current use of insulin E11.9 [facility] [place] [address], [place] [address] 2546 Apr, [facility] [place] [id number] [place] [address] 48250 2546 Apr, Fibromyalgia M79.7 [facility] [place] [address], [place] [address] 2546 Mar, [facility] [place] [address], [place] [address] 2546 Mar, [facility] [place] [address], [place] [address] 2546 Mar, Fibromyalgia M79.7 [facility] [place] [address], [place] [address] 2546 Feb, [facility] [place] [address], [place] [address] 2546 Feb, [facility] [place] [id number] [place] [address] 57561- 4523 Feb, [facility] [place] [id number] [place] [address] 57075- 6363 Feb, Fibromyalgia M79.7 [facility] [place] [id number] [place] [address] 65699- 8692 Feb, Diabetes type 2, uncontrolled E11.65 and Encounter for immunization Z23 [facility] [place] [id number] [place] [address] 58794- 3369 Jan, [facility] [place] [id number] [place] [address] 85975- 2175 Jan, Fibromyalgia M79.7 [facility] [place] [id number] [place] [address] 43638- 4186 Dec, [facility] [place] [id number] [place] [address] 62114- 3677 Dec, Fibromyalgia M79.7 [facility] [place] [id number] [place] [address] 37470- 3068 Nov, [facility] [place] [id number] [place] [address] 91379- 3521 Nov, [facility] [place] [id number] [place] [address] 47066- 0972 Nov, 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 and Polyneuropathy G62.9 [facility] [place] [id number] [place] [address] 23181- 5938 Nov, [facility] [place] [id number] [place] [address] 08706- 3551 Nov, [facility] [place] [id number] [place] [address] 19080- 0915 Oct, Diabetes type 2, uncontrolled E11.65 [facility] [place] [id number] [place] [address] 14194- 6544 Oct, Diabetes type 2, uncontrolled E11.65 ; Polyneuropathy G62.9 and Pain in right wrist M25.531 [facility] [place] [address], [place] [address]- 2726 Oct, [facility] [place] [id number] [place] [address] 30667 2546 Oct, Pain in left shoulder M25.512 [facility] [place] [id number] [place] [address] 76438- 8336 Sep, [facility] [place] [id number] [place] [address] 58059- 2664 Sep, Pain in left shoulder M25.512 [facility] [place] [id number] [place] [address] 06604- 5436 Sep, [facility] [place] [id number] [place] [address] 46927- 6303 August, Pain in left shoulder M25.512 [facility] [place] [id number] [place] [address] 46348- 0323 Jul, [facility] [place] [id number] [place] [address] 96561- 6511 Jul, [facility] [place] [id number] [place] [address] 65591- 3063 Jul, Pain in left shoulder M25.512 [facility] [place] [address], [place] [address]- 4058 Jun, [facility] [place] [id number] [place] [address] 77260- 1998 Jun, [facility] [place] [id number] [place] [address] 48731- 9551 Jun, Diabetes type 2, uncontrolled E11.65 ; Fibromyalgia M79.7 and Arthritis M19.90 [facility] [place] [address], [place] [address]- 9314 Jun, Pain in left shoulder M25.512 [facility] [place] [id number] [address]- 2957 May, [facility] [place] [id number] [place] [address] 53385- 8494 May, Diabetes type 2, controlled E11.9 [facility] [place] [id number] [place] [address] 17649- 8349 17 May, 2016 [facility] [place] [id number] [place] [address] 85393- 8871 May, Uncontrolled type 2 diabetes mellitus without complication, without long-term current use of insulin E11.65 [facility] [place] [id number] [place] [address] 93778- 5018 May, Pain in left shoulder M25.512 [facility] [place] [id number] [place] [address] 95377- 7514 03 May, 2016 Diabetes type 2, controlled E11.9 and Uncontrolled type 2 diabetes mellitus without complication, without long-term current use of insulin E11.65 [facility] [place] [id number] [place] [address] 16062- 6071 Apr, [facility] [place] [id number] [place] [address] 25414- 9917 Apr, [facility] [place] [id number] [place] [address] 68351- 8970 Mar, [facility] [place] [address] [place] [address]- 4963 Mar, [facility] [place] [id number] [place] [address] 69765- 0478 Mar, [facility] [place] [id number] [place] [address] 59082- 0192 Feb, [facility] [address] [id number] Feb, Dental examination Z01.20 [facility] [place] [id number] [place] [address] 91487- 1408 Jan, [facility] [place] [address] [id number] [place] [address]- 1196 Dec, [facility] [place] [address] [id number] [place] [address]- 5620 Dec, [facility] [place] [address] [id number] [place] [address]- 4804 Dec, [facility] [place] [address] [id number] [place] [address]- 6483 Dec, Diabetes type 2, controlled E11.9 [facility] [place] [address] [id number] [place] [address]- 4246 Nov, [facility] [place] [address] [id number] [place] [address]- 3264 Nov, [facility] [place] [address] [facility] [id number] [place] [address]- 8313 Nov, [facility] [place] [address] [facility] [id number] [place] [address]- 2390 Nov, [facility] [place] [address] [facility] [id number] [place] [address]- 5324 Oct, [facility] [place] [address] [facility] [id number], [place] [address]- 1066 Oct, [facility] [place] [address] [facility] [id number] [place] [address]- 1705 Oct, [facility] [place] [address] [facility] [id number] [place] [address]- 2721 Sep, [facility] [place] [address] [facility] [id number], [place] [address]- 0619 Sep, Diabetes type 2, controlled E11.9 [facility] [place] [address] [facility] [id number], [place] [address]- 0274 Sep, Diabetes type 2, controlled E11.9 [facility] [place] [id number] [place] [address] 89673- 5040 August, [facility] [place] [id number] [place] [address] 60002- 0307 August, [facility] [place] [id number] [place] [address] 57926- 5683 August, Type 2 diabetes mellitus without complication E11.9 and Pain in left shoulder M25.512 [facility] [place] [id number] [place] [address] 00192- 4379 Jul, [facility] [place] [id number] [place] [address] 57780- 6822 Jul, Diabetes type 2, controlled E11.9 and Hypertension, benign I10 [facility], [place] [id number] [place] [address] 88286- 2244 Jun, [facility], [place] [id number] [place] [address] 21434- 4332 Jun, [facility], [place] [id number] [place] [address] 19481- 1742 Jun, Diabetes 250.00 [facility], [place] [id number] [place] [address] 07856- 2860 Jun, [facility], [place] [id number] [place] [address] 16889- 3239 May, Diabetes type 2, uncontrolled E11.65 [facility], [place] [id number] [place] [address] 19522- 5827 May, [facility], [place] [id number] [place] [address] 85468- 5886 Apr, Type 2 diabetes mellitus without complication E11.9 [facility], [place] [id number] [place] [address] 80816- 1876 Apr, Encounter for immunization Z23 [facility], [place] [id number] [place] [address] 03600- 9086 Apr, [facility], [place] [id number] [address] [address] Mar, [facility] [address] [id number] [place] [address] Mar, [facility] [address] [facility] [id number] [place] [address] Mar, [facility] [address] [facility] [id number] [address] Feb, [facility] [address] [facility] [id number] [place] [address]- 1699 Jan, [facility] [id number] [place] [address] Jan, [facility] [id number] [address] Jan, [facility] [id number] [address] Dec, Diabetes 250.00 and COPD (chronic obstructive pulmonary disease) 496 [facility] [address] [id number] [address]68 Dec, [facility] [id number] [address] Dec, [facility] [id number], [place] [address] Nov, [facility] [address] [facility] [id number] [address] 1405 Oct, Diabetes 250.00 [facility] [address] [id number], [place] [address] 59[address] Sep, [facility] [address] [facility] [id number] [address] Sep, [facility] [id number] [address]27 Sep, [facility] [id number], [place] [address]32 Sep, Diabetes 250.00 [facility] [place] [id number] [place] [address] 16149- 7634 Sep, [facility], [place] [address] [id number] [address] Sep, [facility], [place] [id number] [place] [address] 59308- 1699 August, Hypertension, essential, benign 401.1 ; Coronary atherosclerosis of [place] coronary artery 414.01 and Diabetic neuropathy associated with type 2 diabetes mellitus 250.60 [facility] [place], [facility] [id number] [place] [address]- [address]782 Jul, [facility] [place] [address] [id number] [address] Jul, [facility] [place] [id number] [place] [address]- 0760 Jul, [facility] [place] [id number], [place] [address] Jun, [facility] [place] [address] [id number] [address] Jun, [facility] [place] [id number] [address] Jun, [facility] [place] [id number] [address] 6[address] Jun, [facility] [place] [id number] [address] Jun, [facility] [place] [id number] [address]886 May, [facility] [place] [id number] [address] 0896 May, [facility] [place] [id number] [address] 0789 May, 2014 [facility] [place] [facility] [address] [id number] [place] [address]- 0192 May, [facility] [place] [facility] [address] [id number] [place] [address]- 8802 May, [facility] [place] [facility] [address] [facility] [id number] [place] [address]- 3442 May, [facility] [place] [facility] [address] [id number] [place] [address]- 7853 May, [facility] [place] [facility] [address] [id number] [place] [address]- 7347 Apr, [facility] [place] [facility] [address] [id number] [place] [address]- 3820 Apr, [facility] [place] [facility] [address] [id number] [place] [address]- 7518 Apr, [facility] [place] [facility] [address] [id number] [place] [address]- 1343 Apr, [facility] [place] [facility] [address] [id number] [place] [address]- 6182 Mar, [facility] [place] [facility] [address] [id number] [place] [address]- 5868 Mar, [facility] [place] [facility] [address] [facility] [id number] [place] [address]- 4993 Mar, [facility] [place] [facility] [address] [id number] [place] [address]- 3458 Mar, [facility] [place] [facility] [address] [id number] [place] [address]- 3301 Feb, [facility] [place] [facility] [address] [id number] [place] [address]- 6077 Feb, [facility] [place] [facility] [address] [facility] [id number] [place] [address]- 8291 Feb, [facility] [place] [facility] [address] [id number] [place] [address]- 5443 Feb, [facility] [place] [facility] [address] [id number] [place] [address]- 3899 Feb, [facility] [place] [facility] [address] [id number] [place] [address]- 3471 Feb, [facility] [place] [facility] [address] [id number] [place] [address]- 5085 Feb, [facility] [place] [facility] [address] [id number] [place] [address]- 4533 Jan, [facility] [place] [facility] [address] [id number] [place] [address]- 0741 Jan, [facility] [place] [facility] [address] [id number] [place] [address]- 8712 Dec, [facility] [place] [facility] [address] [id number] [place] [address]- 0810 Dec, [facility] [place] [facility] [address] [id number] [place] [address]- 8325 Dec, [facility] [place] [facility] [address] [id number] [place] [address]- 6777 Dec, [facility] [place] [facility] [address] [id number] [place] [address]- 3861 Dec, [facility] [place] [facility] [address] [id number] [place] [address]- 2363 Dec, [facility] [place] [facility] [address] [id number] [place] [address]- 0071 Dec, [facility] [place] [facility] [address] [id number] [place] [address]- 9084 Dec, [facility] [place] [facility] [address] [id number] [place] [address]- 7895 Nov, [facility] [place] [facility] [address] [id number] [place] [address]- 4223 Nov, [facility] [place] [facility] [address] [id number] [place] [address]- 9600 Nov, [facility] [place] [facility] [address] [id number] [place] [address]- 5091 Nov, [facility] [place] [facility] [address] [id number] [place] [address]- 3735 Oct, [facility] [place] [facility] [address] [id number] [place] [address]- 5115 Oct, [facility] [place] [facility] [address] [id number] [place] [address]- 9717 Oct, [facility] [place] [facility] [address] [id number] [place] [address]- 3939 Oct, [facility] [place] [facility] [address] [id number] [place] [address]- 3835 Oct, [facility] [place] [facility] [address] [id number] [place] [address]- 2426 Oct, [facility] [place] [facility] [address] [id number] [place] [address]- 6909 Oct, [facility] [place] [facility] [address] [id number] [place] [address]- 6986 Oct, [facility] [place] [facility] [address] [id number] [place] [address]- 5078 Sep, [facility] [place] [facility] [address] [id number] [place] [address]- 6836 Sep, [facility] [place] [facility] [address] [id number] [place] [address]- 1062 August, [facility] [place] [facility] [address] [id number] [place] [address]- 4584 August, [facility] [place] [facility] [address] [id number] [place] [address]- 4582 Jul, [facility] [place] [facility] [address] [id number], [place] [address]- 9292 Jul, [facility] [address] [id number] [place] [address]- 5038 Jul, [facility] [place] [facility] [address] [id number] [place] [address]- 0498 Jul, [facility] [place] [facility] [address] [id number] [place] [address]- 2669 Jul, [facility] [place] [facility] [address] [id number] [place] [address]- 0664 Jul, [facility] [place] [facility] [address] [id number] [place] [address]- 5242 Jul, [facility] [place] [facility] [address] [id number] [place] [address]- 2768 Jul, [facility] [address] [id number] [place] [address]- 1432 Jun, [facility] [place] [facility] [address] [id number] [place] [address]- 0650 Jun, [facility] [place] [facility] [address] [id number] [place] [address]- 7840 Jun, [facility] [place] [facility] [address] [id number] [place] [address]- 6300 Jun, [facility] [place] [facility] [address] [id number] [place] [address]- 4993 May, [facility] [place] [facility] [address] [id number] [place] [address]- 2733 May, [facility] [place] [facility] [address] [id number] [place] [address]- 4478 Apr, [facility] [place] [facility] [address] [id number] [place] [address]- 2684 Apr, [facility] [place] [facility] [address] [id number] [place] [address]- 3936 Mar, [facility] [place] [facility] [address] [id number] [place] [address]- 1384 Mar, [facility] [place] [facility] [address] [id number] [place] [address]- 4359 18 Mar, 2013 [facility] [place] [facility] [address] [id number] [place] [address]- 4252 18 Mar, 2013 [facility] [place] [facility] [address] [id number] [place] [address]- 4612 18 Mar, 2013 [facility] [place] [facility] [address] [id number] [place] [address]- 6845 18 Mar, 2013 [facility] [place] [facility] [address] [id number] [place] [address]- 7456 Feb, [facility] [place] [facility] [address] [id number] [place] [address]- 7324 Feb, [facility] [place] [facility] [address] [id number] [place] [address]- 2766 Feb, [facility] [place] [facility] [address] [id number] [place] [address]- 8310 Feb, [facility] [place] [facility] [address] [id number] [place] [address]- 1300 Feb, [facility] [place] [facility] [address] [id number] [place] [address]- 5738 18 Feb, 2013 [facility] [place] [facility] [address] [id number] [place] [address]- 7832 12 Feb, 2013 [facility] [place] [facility] [address] [id number] [place] [address]- 0353 12 Feb, 2013 [facility] [place] [facility] [address] [id number] [place] [address]- 3154 15 Jan, 2013 [facility] [place] [facility] [address] [id number] [place] [address]- 6180 15 Jan, 2013 [facility] [place] [facility] [address] [id number] [place] [address]- 5211 14 Jan, 2013 [facility] [place] [facility] [address] [id number] [place] [address]- 9915 14 Jan, 2013 [facility] [place] [facility] [address] [id number] [place] [address]- 9878 18 Dec, 2012 [facility] [place] [facility] [address] [id number] [place] [address]- 2838 13 Dec, 2012 [facility] [place] [facility] [address] [id number] [place] [address]- 7899 2012 [facility] [place] [facility] [address] [id number] [place] [address]- 8876 23 Nov, 2012 [facility] [place] [facility] [address] [id number] [place] [address]- 9313 Nov, [facility] [place] [facility] [address] [id number] [place] [address]- 7198 16 Oct, 2012 [facility] [place] [facility] [address] [id number], [place] [address]- 2627 Oct, [facility] [place] [facility] [address] [id number] [place] [address]- 3757 Oct, [facility] [place] [facility] [address] [id number], [place] [address]- 4174 Sep, [facility] [place] [facility] [address] [id number], [place] [address]- 8961 Sep, [facility] [place] [facility] [address] [id number], [place] [address]- 3165 18 Sep, 2012 [facility] [place] [facility] [address] [id number], [place] [address]- 5584 Sep, [facility] [place] [facility] [address] [id number], [place] [address]- 1830 Sep, [facility] [place] [facility] [address] [id number], [place] [address]- 9923 05 Sep, 2012 [facility] [place] [facility] [address] [id number] [place] [address]- 3714 August, [facility] [address] [id number] [place] [address]- 6229 August, [facility] [address] [id number] [place] [address]- 7113 August, [facility] [address] [id number] [place] [address]- 3992 August, [facility] [address] [id number] [place] [address]- 7031 August, [facility] [address] [id number] [place] [address]- 0230 August, [facility] [address] [id number] [place] [address]- 0956 August, [facility] [address] [id number] [place] [address]- 5289 Jul, [facility] [address] [id number] [place] [address]- 9541 Jul, [facility] [address] [id number] [place] [address]- 8333 Jun, [facility] [address] [id number] [place] [address]- 2260 Jun, [facility] [address] [id number] [place] [address]- 2053 May, [facility] [address] [id number] [place] [address]- 8946 May, [facility] [address] [id number] [place] [address]- 1180 Apr, [facility] [address] [id number] [place] [address]- 9933 Mar, [facility] [address] [id number] [place] [address]- 6771 Mar, [facility] [place] [facility] [address] [id number] [place] [address]- 4135 Mar, [facility] [place] [facility] [address] [id number] [place] [address]- 3162 Mar, [facility] [place] [facility] [address] [id number] [place]653 Mar, [facility] [place] [facility] [address] [id number] [place] [address]- 5878 Mar, [facility] [place] [facility] [address] [id number] [place] [address]- 3362 Feb, [facility] [place] [facility] [address] [id number] [place] [address]- 0140 Feb, [facility] [place] [facility] [address] [facility] [id number] [place] [address]- 0672 Feb, [facility] [place] [facility] [address] [id number], [place] [address]- 5372 Feb, [facility] [place] [facility] [address] [facility] [id number], [place] [address]- 5939 Feb, [facility] [place] [facility] [address] [facility] [id number], [place] [address]- 8895 Feb, [facility] [place] [facility] [address] [facility] [id number], [place] [address]- 9556 Feb, [facility] [place] [facility] [address] [id number], [place] [address]- 1662 Feb, [facility] [place] [facility] [address] [id number], [place] [address]- 4338 Jan, [facility] [place] [facility] [address] [id number], [place] [address]- 9345 Jan, [facility] [place] [facility] [address] [facility] [id number][place] 1186 Dec, [facility] [place] [facility] [address] [id number], [place] [address]- 3279 19 Dec, 2011 [facility] [place] [facility] [address] [id number] [place] [address]- 7188 Dec, [facility] [place] [facility] [address] [id number] [place] [address]- 3766 Dec, [facility] [place] [facility] [address] [id number] [place] [address]- 2736 Dec, [facility] [place] [facility] [address] [id number] [place] [address]- 6160 Nov, [facility] [place] [facility] [address] [id number] [place] [address]- 7195 Oct, [facility] [place] [facility] [address] [id number] [place] [address]- 2109 Oct, [facility] [place] [facility] [id number] [address]- 6227 Sep, [facility] [place] [facility] [address] [id number] [place] [address]- 8743 Sep, [facility] [place] [facility] [address] [facility] [id number] [place] [address]- 3123 Sep, [facility] [place] [facility] [address] [facility] [id number] [place] [address]- 5452 Sep, [facility] [place] [facility] [address] [id number] [place] [address]- 6060 Sep, [facility] [place] [facility] [address] [id number] [place] [address]- 4352 Sep, [facility] [place] [facility] [address] [id number] [place] [address]- 0223 Sep, [facility] [place] [facility] [address] [facility] [id number] [place] [address]- 7104 Sep, [facility] [place] [facility] [address] [facility] [id number] [place] [address]- 9401 August, [facility] [place] [facility] [address] [id number] [place] [address]- 2965 August, [facility] [address] [id number] [place] [address]- 2451 August, [facility] [place] [facility] [address] [id number] [place] [address]- 3256 Jul, [facility] [place] [facility] [address] [id number] [place] [address]- 9016 Jul, [facility] [place] [facility] [address] [id number] [place] [address]- 7284 Jun, [facility] [place] [facility] [address] [id number] [place] [address]- 6036 Jun, [facility] [place] [facility] [address] [id number] [place] [address]- 8941 Jun, [facility] [place] [facility] [address] [id number] [place] [address]- 1666 Jun, [facility] [place] [facility] [address] [id number] [place] [address]- 1057 May, [facility] [place] [facility] [address] [id number] [place] [address]- 3781 May, [facility] [place] [facility] [address] [id number] [place] [address]- 6509 Apr, [facility] [place] [facility] [address] [id number] [place] [address]- 0222 Apr, [facility] [place] [facility] [address] [id number] [place] [address]- 6115 Apr, [facility] [place] [facility] [address] [id number] [place] [address]- 4346 14 Mar, 2011 [facility] [place] [facility] [address] [id number] [place] [address]- 0576 09 Mar, 2011 [facility] [place] [facility] [address] [id number] [place] [address]- 2567 07 Mar, 2011 [facility] [place] [facility] [address] [id number] [place] [address]- 2834 Feb, [facility] [place] [facility] [address] [id number] [place] [address]- 1258 Feb, [facility] [place] [facility] [address] [facility] [id number] [place] [address]- 1714 Feb, [facility] [place] [facility] [address] [id number] [place] [address]- 7123 Feb, [facility] [place] [facility] [address] [id number] [place] [address]- 0570 Jan, [facility] [place] [facility] [address] [id number] [place] [address]- 8878 14 Jan, 2011 [facility] [place] [facility] [address] [facility] [id number] [place] [address]- 6667 Jan, [facility] [place] [facility] [address] [id number], [place] [address]- 0380 16 Dec, 2010 [facility] [place] [facility] [address] [id number], [place] [address]- 0717 Oct, [facility] [place] [facility] [address] [facility] [id number], [place] [address]- 1554 Mar, [facility] [place] [facility] [address] [id number], [place] [address]- 7935 Feb, [facility] [place] [facility] [address] [id number], [place] [address]- 4620 Feb, [facility] [place] [facility] [address] [id number] [place] [address] 16 May, 2009 [facility] [place] [facility] [address] [facility] [id number], [place] [address] Apr, [facility] [place] [facility] [address] [facility] [id number], [place] [address] Mar, [facility] [place] [facility] [address] [facility] [id number], [place] [address] Jan, [facility] [place] [address] [facility] [id number], [place] [address] Oct, [facility] [place] [address] [id number], [place] [address] Jul, [facility] [place] [address] [facility] [id number], [place] [address] Mar, [facility] [place] [address] [facility] [id number], [place] [address] Feb, [facility] [place] [address] [facility] [id number], [place] [address] Jan, IMMUNIZATIONS No Known Immunizations SOCIAL HISTORY Never Assessed REASON FOR VISIT Refill request PLAN OF CARE VITAL SIGNS MEDICATIONS Medication Instructions Dosage Frequency Start Date End Date Duration Status Polyethylene Glycol 3350 - Orally Once a day 1 packet mixed with 8 ounces of fluid 24h Nov, Jan, 30 day(s) Active RESULTS No Results PROCEDURES [...]
--- OUTSIDE RECORDS SUMMARY | 2018-07-05 12:29 | XMS REPORT ---
Author Author KATHYA FISCHER Organization [facility] Address [address] [place] [address] Care Team Providers Care Lead Housekeeper Name Role Phone KATHYA FISCHER Unavailable PROBLEMS Type Condition ICD9-CM Code QJX57-HU Code Onset Dates Condition Status SNOMED Code Problem Arthritis M19.90 Active 0776727 Problem 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 Active 50887778 Problem Polyneuropathy G62.9 Active 66198172 Problem Other male erectile dysfunction N52.8 Active 463570616 Problem Constipation K59.00 Active 87345876 Problem Type 2 diabetes mellitus with 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 E11.65 Active 914303703 Problem Controlled type 2 diabetes mellitus without complication, without long -term current use of insulin E11.9 Active 812933011 Problem residential current use of insulin Z79.4 Active 897142788 Problem Neuropathy G62.9 Active 007801532 Problem Obstructive sleep apnea G47.33 Active 06619511 Problem Hypertension, benign I10 Active 78355693 Problem Uncontrolled type 2 diabetes mellitus without complication, without long-term current use of insulin E11.65 Active 456042857 Problem Stress incontinence of urine N39.3 Active 26035083 Problem Fibromyalgia M79.7 Active 237300840 ALLERGIES No Information ENCOUNTERS Encounter Location Date Diagnosis [facility] [address], [place] [address] Dec, [facility] [address], [place] [address] 8768 Dec, [facility] [id number] [place] [address] 31395- 6283 Nov, [facility] [id number] [place] [address] 58090- 8652 Nov, Therapeutic drug monitoring Z51.81 [facility] [address] [place] [address] 87772- 7633 Nov, [facility] [id number] [place] [address] 40722- 2976 Nov, Therapeutic drug monitoring Z51.81 ; Fibromyalgia M79.7 and Controlled type 2 diabetes mellitus without complication, without long-term current use of insulin E11.9 [facility] [id number] [place] [address] 93232- 1127 Nov, Type 2 diabetes mellitus with 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 E11.65 [facility] [id number] [place] [address] 38906- 9255 Nov, [facility] [address] 76779- 4396 Nov, [facility] [id number] [place] [address] 56074- 1611 Nov, Type 2 diabetes mellitus with 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 E11.65 [facility] [address] 10248- 3225 Nov, [facility] [id number] [place] [address] 71487- 2854 Nov, [facility] [id number] [place] [address] 04844- 1040 Nov, Constipation K59.00 [facility] [id number] [place] [address] 45300- 7532 Oct, Diabetes type 2, controlled E11.9 [facility] [id number] [place] [address] 59384- 4905 Oct, Type 2 diabetes mellitus with 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 E11.65 ; intermission coordinator current use of insulin Z79.4 and Neuropathy G62.9 [facility] [id number] [place] [address] 89544- 7149 Oct, [facility] [id number] [place] [address] 22127- 2774 Oct, [facility] [id number] [place] [address] 83579- 3073 Oct, [facility] [address], [place] [address]- 7796 Oct, [facility] [address] 4123 Oct, [facility] [address] 6455 Oct, [facility] [id number] [place] [address] 050745- 7109 Oct, [facility] [id number] [place] [address] 06996- 6237 Sep, [facility] [id number] [place] [address] 73204- 3072 Sep, Uncontrolled type 2 diabetes mellitus without complication, without long-term current use of insulin E11.65 [place] [address] [place] [address] 64341- 9296 Sep, Hypertension, benign I10 ; Fibromyalgia M79.7 ; Controlled type 2 diabetes mellitus without complication, without long-term current use of insulin E11.9 and Uncontrolled type 2 diabetes mellitus without complication, without long-term current use of insulin E11.65 [facility] [facility] [address], [place] [address]- 1367 Sep, [facility] [address], [place] [address]- 2170 Sep, Uncontrolled type 2 diabetes mellitus without complication, without long-term current use of insulin E11.65 [facility] [address], [place] [address]- 8316 Sep, [facility] [facility] [address] 7849 Sep, [facility] [id number], [place] [address]- 8496 Sep, Uncontrolled type 2 diabetes mellitus without complication, without long-term current use of insulin E11.65 and Fibromyalgia M79.7 [facility] [id number] [place] [address] 73814- 9937 August, [facility] [id number] [place] [address] 42252- 6731 August, [facility] [id number] [place] [address] 86113- 9222 August, [facility] [address] 65995- 2894 August, Fibromyalgia M79.7 [facility] [address] 89386- 4935 Jul, Hypertension, benign I10 [facility] [address] 71448- 7936 Jul, Fibromyalgia M79.7 [facility] [address] 87341- 1778 Jul, [facility] [id number] [place] [address] 25858- 1037 Jun, [facility] [address] 77613- 4525 Jun, Hypertension, benign I10 ; Arthritis M19.90 ; residential current use 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 Z79.891 and Uncontrolled type 2 diabetes mellitus without complication, without long-term current use of insulin E11.65 [facility] [id number] [place] [address] 66583 -6211 Jun, Acute nasopharyngitis J00 and BMI 50.0-59.9, adult Z68.43 [facility] [address] 18670- 5787 Jun, Fibromyalgia M79.7 [facility] [id number] [place] [address] 16889- 9025 May, [facility] [address] [place] [address]- 4346 May, Fibromyalgia M79.7 [facility] [id number] [place] [address] 18527 2546 Apr, Fibromyalgia M79.7 [facility] [address], [place] [address] 2546 Apr, [facility] [id number] [place] [address] 93952 2546 Apr, [facility] [id number] [place] [address] 13132 2546 Apr, Arthritis M19.90 [facility] [id number] [place] [address] 27995 2546 Apr, Arthritis M19.90 [facility] [id number] [place] [address] 85937 2546 Apr, Arthritis M19.90 and Controlled type 2 diabetes mellitus without complication, without long-term current use of insulin E11.9 [facility] [address], [place] [address] 2546 Apr, [facility] [id number] [place] [address] 92039 2546 Apr, Fibromyalgia M79.7 [facility] [address], [place] [address] 2546 Mar, [facility] [address], [place] [address] 2546 Mar, [facility] [address], [place] [address] 2546 Mar, Fibromyalgia M79.7 [facility] [address], [place] [address] 2546 Feb, [facility] [address], [place] [address] 2546 Feb, [facility] [id number] [place] [address] 37331- 3944 Feb, [facility] [id number] [place] [address] 55255- 1500 Feb, Fibromyalgia M79.7 [facility] [id number] [place] [address] 91180- 4647 Feb, Diabetes type 2, uncontrolled E11.65 and Encounter for immunization Z23 [facility] [id number] [place] [address] 59082- 4312 Jan, [facility] [id number] [place] [address] 46881- 3111 Jan, Fibromyalgia M79.7 [facility] [id number] [place] [address] 97064- 5388 Dec, [facility] [id number] [place] [address] 20703- 5013 Dec, Fibromyalgia M79.7 [facility] [id number] [place] [address] 87652- 7926 Nov, [facility] [id number] [place] [address] 56491- 0699 Nov, [facility] [id number] [place] [address] 58286- 9589 Nov, 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 and Polyneuropathy G62.9 [facility] [id number] [place] [address] 38837- 9274 Nov, [facility] [id number] [place] [address] 02660- 4801 Nov, [facility] [id number] [place] [address] 26791- 7345 Oct, Diabetes type 2, uncontrolled E11.65 [facility] [id number] [place] [address] 91374- 4719 Oct, Diabetes type 2, uncontrolled E11.65 ; Polyneuropathy G62.9 and Pain in right wrist M25.531 [facility] [address], [place] [address]- 9876 Oct, [facility] [id number] [place] [address] 23398 2546 Oct, Pain in left shoulder M25.512 [facility] [id number] [place] [address] 79213- 4626 Sep, [facility] [id number] [place] [address] 21546- 3224 Sep, Pain in left shoulder M25.512 [facility] [id number] [place] [address] 02830- 2376 Sep, [facility] [id number] [place] [address] 28868- 0696 August, Pain in left shoulder M25.512 [facility] [id number] [place] [address] 59843- 5911 Jul, [facility] [id number] [place] [address] 64164- 7740 Jul, [facility] [id number] [place] [address] 97122- 1674 Jul, Pain in left shoulder M25.512 [facility] [address], [place] [address]- 0504 Jun, [facility] [id number] [place] [address] 35266- 8899 Jun, [facility] [id number] [place] [address] 43537- 8358 Jun, Diabetes type 2, uncontrolled E11.65 ; Fibromyalgia M79.7 and Arthritis M19.90 [facility] [address], [place] [address]- 2747 Jun, Pain in left shoulder M25.512 [facility] [id number], [place] [address]- 0474 May, [facility] [address] [place] [address] 75763- 8092 May, Diabetes type 2, controlled E11.9 [facility] [id number] [place] [address] 53549- 0758 17 May, 2016 [facility] [id number] [place] [address] 64104- 8330 May, Uncontrolled type 2 diabetes mellitus without complication, without long-term current use of insulin E11.65 [facility] [id number] [place] [address] 01290- 0979 May, Pain in left shoulder M25.512 [facility] [id number] [place] [address] 21247- 5034 03 May, 2016 Diabetes type 2, controlled E11.9 and Uncontrolled type 2 diabetes mellitus without complication, without long-term current use of insulin E11.65 [facility] [id number] [place] [address] 57406- 8413 Apr, [facility] [id number] [place] [address] 70573- 0222 Apr, [facility] [id number] [place] [address] 14878- 5936 Mar, [facility] [address], [place] [address]- 0638 Mar, [facility] [id number] [place] [address] 03914- 4252 Mar, [facility] [id number] [place] [address] 14509- 1801 Feb, [facility] [address] [address] Feb, Dental examination Z01.20 [facility] [id number] [place] [address] 58782- 3656 Jan, [facility] [address] [id number] [place] [address]- 4518 Dec, [facility] [address] [id number] [place] [address]- 3472 Dec, [facility] [address] [id number] [place] [address]- 3033 Dec, [facility] [address] [id number] [place] [address]- 6053 Dec, Diabetes type 2, controlled E11.9 [facility] [address] [id number] [place] [address]- 3798 Nov, [facility] [address] [id number] [place] [address]- 7327 Nov, [facility] [address] [facility] [id number] [place] [address]- 2058 Nov, [facility] [address] [facility] [id number] [place] [address]- 4380 Nov, [facility] [address] [facility] [id number] [place] [address]- 1393 Oct, [facility] [address] [facility] [id number] [address]- 8116 Oct, [facility] [address] [facility] [id number] [place] [address]- 6797 Oct, [facility] [address] [facility] [id number] [place] [address]- 3205 Sep, [facility] [address] [facility] [id number], [place] [address]- 0923 Sep, Diabetes type 2, controlled E11.9 [facility] [address] [facility] [id number], [place] [address]- 4119 Sep, Diabetes type 2, controlled E11.9 [facility] [id number] [place] [address] 45118- 2844 August, [facility] [id number] [place] [address] 72679- 6993 August, [facility] [id number] [place] [address] 95099- 0131 August, Type 2 diabetes mellitus without complication E11.9 and Pain in left shoulder M25.512 [facility] [id number] [place] [address] 94792- 6394 Jul, [facility] [id number] [place] [address] 05520- 9857 Jul, Diabetes type 2, controlled E11.9 and Hypertension, benign I10 [facility] [id number] [place] [address] 84557- 2732 Jun, [facility] [id number] [place] [address] 82051- 3560 Jun, [facility] [id number] [place] [address] 59765- 2361 Jun, Diabetes 250.00 [facility] [id number] [place] [address] 89570- 9020 Jun, [facility] [id number] [place] [address] 14736- 9838 May, Diabetes type 2, uncontrolled E11.65 [facility] [id number] [place] [address] 29677- 7476 May, [facility] [id number] [place] [address] 62739- 2321 Apr, Type 2 diabetes mellitus without complication E11.9 [facility] [id number] [place] [address] 47659- 8889 Apr, Encounter for immunization Z23 [facility] [id number] [place] [address] 26402- 6700 Apr, [facility] [address] [place] 7239 Mar, [facility] [address] [id number] [place] [address]- 8246 Mar, [facility] [address] [facility] [id number] [place] 8992 Mar, [facility] [address] [facility] [id number], [place] [address]- 6910 Feb, [facility] [address] [facility] [id number] [place] [address]- 6118 Jan, [facility] [address] [place] [address]- 6389 Jan, [facility] [address], [place] [address]- 1933 Jan, [facility] [address], [place] [address]- 0702 Dec, Diabetes 250.00 and COPD (chronic obstructive pulmonary disease) 496 [facility] [id number] [address]- 4754 Dec, [facility] [address], [place] [address]- 1324 Dec, [facility] [address], [place] [address]- 5644 Nov, [facility] [address] [facility] [id number], [place] [address]- 8919 Oct, Diabetes 250.00 [facility] [address] [id number], [place] [address]- 2885 Sep, [facility] [address] [facility] [id number]- 8165 Sep, [facility] [id number], [place] [address]- 7971 Sep, [facility] [address], [place] [address]- 5973 Sep, Diabetes 250.00 [facility] [address] [place] [address] 50110- 1414 Sep, [facility] [id number] [address]- 6246 Sep, [facility] [id number] [place] [address] 70177- 1126 August, Hypertension, essential, benign 401.1 ; Coronary atherosclerosis of jamul coronary artery 414.01 and Diabetic neuropathy associated with type 2 diabetes mellitus 250.60 [facility] [id number] [place] [address] 53102- 3209 Jul, [facility] [id number] [address]- 0393 Jul, [facility] [id number] [place] [address] 89804- 7410 Jul, [facility] [address], [place] [address]- 8927 Jun, [facility] [id number] [address]- 0402 Jun, [facility] [address], [place] [address]- 9853 Jun, [facility] [address], [place] [address]- 5466 Jun, [facility] [address], [place] [address]- 8436 Jun, [facility] [id number] [address]- 4006 May, [facility] [address], [place] [address]- 8026 May, [facility] [address], [place] [address]- 1879 May, 2014 [facility] [place] [facility] [address] [id number] [place] [address]- 8286 May, [facility] [place] [facility] [address] [id number] [place] [address]- 0787 May, [facility] [place] [facility] [address] [facility] [id number] [place] [address]- 9122 May, [facility] [place] [facility] [address] [id number] [place] [address]- 0265 May, [facility] [place] [facility] [address] [id number] [place] [address]- 6014 Apr, [facility] [place] [facility] [address] [id number] [place] [address]- 2848 Apr, [facility] [place] [facility] [address] [id number] [place] [address]- 8175 Apr, [facility] [place] [facility] [address] [id number] [place] [address]- 5474 Apr, [facility] [place] [facility] [address] [id number] [place] [address] Mar, [facility] [place] [facility] [address] [id number] [place] [address] Mar, [facility] [place] [facility] [address] [facility] [id number] [place] [address] Mar, [facility] [place] [facility] [address] [id number] [place] [address] Mar, [facility] [place] [facility] [address] [id number] [place] [address] Feb, [facility] [place] [facility] [address] [id number] [place] [address] Feb, [facility] [place] [facility] [address] [facility] [id number] [place] [address] Feb, [facility] [place] [facility] [address] [id number] [place] [address] Feb, [facility] [place] [facility] [address] [id number] [place] [address] Feb, [facility] [place] [facility] [address] [id number] [place] [address] Feb, [facility] [place] [facility] [address] [id number] [place] [address] Feb, [facility] [place] [facility] [address] [id number] [place] [address] Jan, [facility] [place] [facility] [address] [id number] [place] [address] Jan, [facility] [place] [facility] [address] [id number] [place] [address] Dec, [facility] [place] [facility] [address] [id number] [place] [address] Dec, [facility] [place] [facility] [address] [id number] [place] [address] Dec, [facility] [place] [facility] [address] [id number] [place] [address] Dec, [facility] [place] [facility] [address] [id number] [place] [address] Dec, [facility] [place] [facility] [address] [id number] [place] [address] Dec, [facility] [place] [facility] [address] [id number] [place] [address] Dec, [facility] [place] [facility] [address] [id number] [place] [address] Dec, [facility] [place] [facility] [address] [id number] [place] [address] Nov, [facility] [place] [facility] [address] [id number] [place] [address]- [address] Nov, [facility] [place] [facility] [address] [id number] [place] [address] Nov, [facility] [place] [facility] [address] [id number] [place] [address] Nov, [facility] [place] [facility] [address] [id number] [place] [address] Oct, [facility] [place] [facility] [address] [id number] [place] [address] Oct, [facility] [place] [facility] [address] [id number] [place] [address] Oct, [facility] [place] [facility] [address] [id number] [place] [address] Oct, [facility] [place] [facility] [address] [id number] [place] [address] Oct, [facility] [place] [facility] [address] [id number] [place] [address] Oct, [facility] [place] [facility] [address] [id number] [place] [address] Oct, [facility] [place] [facility] [address] [id number] [place] [address]- [address] Oct, [facility] [place] [facility] [address] [id number] [place] [address] Sep, [facility] [place] [facility] [address] [id number] [place] [address] Sep, [facility] [place] [facility] [address] [id number] [place] [address] August, [facility] [place] [facility] [address] [id number] [place] [address] August, [facility] [place] [facility] [address] [id number] [place] [address] Jul, [facility] [place] [facility] [address] [id number], [place] [address] Jul, [facility] [address] [id number] [place] [address] Jul, [facility] [place] [facility] [address] [id number] [place] [address] 5[address] Jul, [facility] [place] [facility] [address] [id number] [place] [address] 6[address] Jul, [facility] [place] [facility] [address] [id number] [place] [address] 0066 Jul, [facility] [place] [facility] [address] [id number] [place] [address] 72[address] Jul, [facility] [place] [facility] [address] [id number] [place] [address] 9[address] Jul, [facility] [address] [id number] [place] [address] Jun, [facility] [place] [facility] [address] [id number] [place] [address] 6[address] Jun, [facility] [place] [facility] [address] [id number] [place] [address] 6064 Jun, [facility] [place] [facility] [address] [id number] [place] [address] 99[address] Jun, [facility] [place] [facility] [address] [id number] [place] [address] 4[address] May, [facility] [place] [facility] [address] [id number] [place] [address] 6465 May, [facility] [place] [facility] [address] [id number] [place] [address]- 3378 Apr, [facility] [place] [facility] [address] [id number] [place] [address]- 4916 Apr, [facility] [place] [facility] [address] [id number] [place] [address] 4017 Mar, [facility] [place] [facility] [address] [id number] [place] [address]- 0975 Mar, [facility] [place] [facility] [address] [id number] [place] [address]- 0597 18 Mar, 2013 [facility] [place] [facility] [address] [id number] [place] [address] 8134 18 Mar, 2013 [facility] [place] [facility] [address] [id number] [place] [address]- 1728 18 Mar, 2013 [facility] [place] [facility] [address] [id number] [place] [address]- 6270 18 Mar, 2013 [facility] [place] [facility] [address] [id number] [place] [address] Feb, [facility] [place] [facility] [address] [id number] [place] [address] 9296 Feb, [facility] [place] [facility] [address] [id number] [place] [address]- 3631 Feb, [facility] [place] [facility] [address] [id number] [place] [address] 1640 Feb, [facility] [place] [facility] [address] [id number] [place] [address]- 0216 Feb, [facility] [place] [facility] [address] [id number] [place] [address]- 2378 18 Feb, 2013 [facility] [place] [facility] [address] [id number] [place] [address]- 8375 12 Feb, 2013 [facility] [place] [facility] [address] [id number] [place] [address]- 7145 12 Feb, 2013 [facility] [place] [facility] [address] [id number] [place] [address]- 6787 15 Jan, 2013 [facility] [place] [facility] [address] [id number] [place] [address]- 9464 15 Jan, 2013 [facility] [place] [facility] [address] [id number] [place] [address]- 1459 14 Jan, 2013 [facility] [place] [facility] [address] [id number] [place] [address]- 1135 14 Jan, 2013 [facility] [place] [facility] [address] [id number] [place] [address]- 6477 18 Dec, 2012 [facility] [place] [facility] [address] [id number] [place] [address] 1985 13 Dec, 2012 [facility] [place] [facility] [address] [id number] [place] [address]- [address]105 2012 [facility] [place] [facility] [address] [id number] [place] [address]- 2043 23 Nov, 2012 [facility] [place] [facility] [address] [id number] [place] [address]- 8784 Nov, [facility] [place] [facility] [address] [id number] [place] [address]- 0537 16 Oct, 2012 [facility] [place] [facility] [address] [id number], [place] [address] 7697 Oct, [facility] [place] [facility] [address] [id number] [place] [address]- 8973 Oct, [facility] [place] [facility] [address] [id number], [place] [address] 84[address] Sep, [facility] [place] [facility] [address] [id number], [place] [address] Sep, [facility] [place] [facility] [address] [id number], [place] [address]- 7313 18 Sep, 2012 [facility] [place] [facility] [address] [id number], [place] [address]- 87[address] Sep, [facility] [place] [facility] [address] [id number], [place] [address]- 9[address] Sep, [facility] [place] [facility] [address] [id number], [place] [address]- [address]80 05 Sep, 2012 [facility] [place] [facility] [address] [id number] [place] [address] 0758 August, [facility] [address] [id number] [place] [address] 9034 August, [facility] [address] [id number] [place] [address] 5170 August, [facility] [address] [id number] [place] [address] 4821 August, [facility] [address] [id number] [place] [address]- 2937 August, [facility] [address] [id number] [place] [address]- 9006 August, [facility] [address] [id number] [place] [address]- 7296 August, [facility] [address] [id number] [place] [address]- 7910 Jul, [facility] [address] [id number] [place] [address]- 2740 Jul, [facility] [address] [id number] [place] [address]- 2726 Jun, [facility] [address] [id number] [place] [address]- 0435 Jun, [facility] [address] [id number] [place] [address]- 5244 May, [facility] [address] [id number] [place] [address]- 4116 May, [facility] [address] [id number] [place] [address]- 9936 Apr, [facility] [address] [id number] [place] [address]- 5156 Mar, [facility] [address] [id number] [place] [address]- 5252 Mar, [facility] [place] [facility] [address] [id number] [place] [address]- 1121 Mar, [facility] [place] [facility] [address] [id number] [place] [address]- 9728 Mar, [facility] [place] [facility] [address] [id number] [place] [address] Mar, [facility] [place] [facility] [address] [id number] [place] [address]- 1311 Mar, [facility] [place] [facility] [address] [id number] [place] [address]- 9225 Feb, [facility] [place] [facility] [address] [id number] [place] [address]- 8175 Feb, [facility] [place] [facility] [address] [facility] [id number] [place] [address]- 4511 Feb, [facility] [place] [facility] [address] [id number], [place] [address]- 0949 Feb, [facility] [place] [facility] [address] [facility] [id number], [place] [address]- 2322 Feb, [facility] [place] [facility] [address] [facility] [id number], [place] [address]- 4776 Feb, [facility] [place] [facility] [address] [facility] [id number], [place] [address]- 6126 Feb, [facility] [place] [facility] [address] [id number], [place] [address]- 6290 Feb, [facility] [place] [facility] [address] [id number], [place] [address]- 7796 Jan, [facility] [place] [facility] [address] [id number], [place] [address]- 2480 Jan, [facility] [place] [facility] [address] [facility] [id number][place] 3790 Dec, [facility] [place] [facility] [address] [id number], [place] [address]- 9315 19 Dec, 2011 [facility] [place] [facility] [address] [id number] [place] [address]- 5696 Dec, [facility] [place] [facility] [address] [id number] [place] [address]- 4086 Dec, [facility] [place] [facility] [address] [id number] [place] [address]- 9466 Dec, [facility] [place] [facility] [address] [id number] [place] [address]- 5654 Nov, [facility] [place] [facility] [address] [id number] [place] [address]- 7377 Oct, [facility] [place] [facility] [address] [id number] [place] [address]- 6453 Oct, [facility] [place] [facility] [address] [id number] [place] [address]- [address] Sep, [facility] [place] [facility] [address] [id number] [place] [address]- 1279 Sep, [facility] [place] [facility] [address] [facility] [id number] [place] [address]- 1795 Sep, [facility] [place] [facility] [address] [facility] [id number] [place] [address]- 1249 Sep, [facility] [place] [facility] [address] [id number] [place] [address]- 4116 Sep, [facility] [place] [facility] [address] [id number] [place] [address]- 2515 Sep, [facility] [place] [facility] [address] [id number] [place] [address]- 3200 Sep, [facility] [place] [facility] [address] [facility] [id number] [place] [address]- 1027 Sep, [facility] [place] [facility] [address] [facility] [id number] [place] [address]- 7838 August, [facility] [place] [facility] [address] [id number] [place] [address]- 9461 August, [facility] [address] [id number] [place] [address]- 2087 August, [facility] [place] [facility] [address] [id number] [place] [address]- 5056 Jul, [facility] [place] [facility] [address] [id number] [place] [address]- 2146 Jul, [facility] [place] [facility] [address] [id number] [place] [address]- 1453 Jun, [facility] [place] [facility] [address] [id number] [place] [address]- 3716 Jun, [facility] [place] [facility] [address] [id number] [place] [address]- 8973 Jun, [facility] [place] [facility] [address] [id number] [place] [address]- 1694 Jun, [facility] [place] [facility] [address] [id number] [place] [address]- 0762 May, [facility] [place] [facility] [address] [id number] [place] [address]- 2636 May, [facility] [place] [facility] [address] [id number] [place] [address]- 4387 Apr, [facility] [place] [facility] [address] [id number] [place] [address]- 7887 Apr, [facility] [place] [facility] [address] [id number] [place] [address]- 4165 Apr, [facility] [place] [facility] [address] [id number] [place] [address]- 3836 14 Mar, 2011 [facility] [place] [facility] [address] [id number] [place] [address]- 1836 09 Mar, 2011 [facility] [place] [facility] [address] [id number] [place] [address]- 6475 07 Mar, 2011 [facility] [place] [facility] [address] [id number] [place] [address]- 2551 Feb, [facility] [place] [facility] [address] [id number] [place] [address]- 2416 Feb, [facility] [place] [facility] [address] [facility] [id number] [place] [address]- 2479 Feb, [facility] [place] [facility] [address] [id number] [place] [address]- 6911 Feb, [facility] [place] [facility] [address] [id number] [place] [address]- 5176 Jan, [facility] [place] [facility] [address] [id number] [place] [address]- 1675 14 Jan, 2011 [facility] [place] [facility] [address] [facility] [id number] [place] [address]- 9540 Jan, [facility] [place] [facility] [address] [id number], [place] [address]- 5007 16 Dec, 2010 [facility] [place] [facility] [address] [id number], [place] [address]- 0887 Oct, [facility] [place] [facility] [address] [facility] [id number], [place] [address]- 7950 Mar, [facility] [place] [facility] [address] [id number], [place] [address]- 2448 Feb, [facility] [place] [facility] [address] [id number], [place] [address]- 3641 Feb, [facility] [place] [facility] [address] [id number] [place] [address]- 2133 16 May, 2009 [facility] [place] [facility] [address] [facility] [id number], [place] [address]- 3611 Apr, [facility] [place] [facility] [address] [facility] [id number], [place] [address]- 1673 Mar, [facility] [place] [facility] [address] [facility] [id number], [place] [address]- 2546 Jan, [facility] [address] [id number], [place] [address]- 4249 Oct, [facility] [address] [id number], [place] [address]- 2546 Jul, [facility] [address] [id number], [place] [address]- 2546 Mar, [facility] [address] [id number], [place] [address]- 2545 Feb, [facility] [address] [facility] [id number], [place] [address]- 1368 Jan, IMMUNIZATIONS No Known Immunizations SOCIAL HISTORY [...]
--- OUTSIDE RECORDS SUMMARY | 2018-07-05 12:30 | XMS REPORT ---
Author Author KATHYA FISCHER Organization [facility] Address [address] [place] [address] Care Team Providers Care Director [employer] Name Role Phone KATHYA FISCHER Unavailable PROBLEMS Type Condition ICD9-CM Code WUE00-MK Code Onset Dates Condition Status SNOMED Code Problem Arthritis M19.90 Active 8558110 Problem 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 Active 68197768 Problem Polyneuropathy G62.9 Active 70345529 Problem Other male erectile dysfunction N52.8 Active 227400731 Problem Constipation K59.00 Active 35282934 Problem Type 2 diabetes mellitus with 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 E11.65 Active 059214232 Problem Controlled type 2 diabetes mellitus without complication, without long -term current use of insulin E11.9 Active 624628836 Problem FCI current use of insulin Z79.4 Active 646615773 Problem Neuropathy G62.9 Active 748856207 Problem Obstructive sleep apnea G47.33 Active 21133595 Problem Hypertension, benign I10 Active 93236278 Problem Uncontrolled type 2 diabetes mellitus without complication, without long-term current use of insulin E11.65 Active 878308419 Problem Stress incontinence of urine N39.3 Active 17030483 Problem Fibromyalgia M79.7 Active 088170209 ALLERGIES No Information ENCOUNTERS Encounter Location Date Diagnosis [facility] [id number] [address] Dec, [facility] [address], [place] [address]274 Dec, [facility] [id number] [place] [address] 60121- 4317 Nov, [facility] [id number] [place] [address] 51969- 8735 Nov, Therapeutic drug monitoring Z51.81 [facility] [id number] [place] [address] 17800- 6796 Nov, [facility] [id number] [place] [address] 64407- 7462 Nov, Therapeutic drug monitoring Z51.81 ; Fibromyalgia M79.7 and Controlled type 2 diabetes mellitus without complication, without long-term current use of insulin E11.9 [facility] [id number] [place] [address] 23352- 2142 Nov, Type 2 diabetes mellitus with 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 E11.65 [facility] [id number] [place] [address] 36091- 9030 Nov, [facility] [address] 69135- 7781 Nov, [facility] [id number] [place] [address] 67891- 8692 Nov, Type 2 diabetes mellitus with 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 E11.65 [facility] [address] 40511- 4482 Nov, [facility] [id number] [place] [address] 25356- 6328 Nov, [facility] [id number] [place] [address] 85618- 7497 Nov, Constipation K59.00 [facility] [id number] [place] [address] 75683- 7441 Oct, Diabetes type 2, controlled E11.9 [facility] [id number] [place] [address] 31114- 2146 Oct, Type 2 diabetes mellitus with 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 E11.65 ; 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 and Neuropathy G62.9 [facility] [id number] [place] [address] 39015- 2826 Oct, [facility] [id number] [place] [address] 76295- 1974 Oct, [facility] [id number] [place] [address] 56243- 8737 Oct, [facility] [address], [place] [address]- 1141 Oct, [facility] [address] 0680 Oct, [facility] [address] 3522 Oct, [facility] [id number] [place] [address] 940348- 8683 Oct, [facility] [id number] [place] [address] 96968- 1828 Sep, [facility] [id number] [place] [address] 61986- 2905 Sep, Uncontrolled type 2 diabetes mellitus without complication, without long-term current use of insulin E11.65 [facility] [id number] [place] [address] 46294- 6892 Sep, Hypertension, benign I10 ; Fibromyalgia M79.7 ; Controlled type 2 diabetes mellitus without complication, without long-term current use of insulin E11.9 and Uncontrolled type 2 diabetes mellitus without complication, without long-term current use of insulin E11.65 [facility] [address], [place] [address]- 9056 Sep, [facility] [address], [place] [address]- 8939 Sep, Uncontrolled type 2 diabetes mellitus without complication, without long-term current use of insulin E11.65 [facility] [address], [place] [address]- 0450 Sep, [facility] [address] 3199 Sep, [facility] [id number], [place] [address]- 2348 Sep, Uncontrolled type 2 diabetes mellitus without complication, without long-term current use of insulin E11.65 and Fibromyalgia M79.7 [facility] [id number] [place] [address] 60787- 3998 August, [facility] [id number] [place] [address] 56576- 6984 August, [facility] [id number] [place] [address] 70795- 4688 August, [facility] [address] 95636- 7063 August, Fibromyalgia M79.7 [facility] [address] 78496- 0615 Jul, Hypertension, benign I10 [facility] [address] 62335- 2157 Jul, Fibromyalgia M79.7 [facility] [address] 63265- 8619 Jul, [facility] [id number] [place] [address] 26119- 1049 Jun, [facility] [address] 91888- 2128 Jun, Hypertension, benign I10 ; Arthritis M19.90 ; FCI current use 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 Z79.891 and Uncontrolled type 2 diabetes mellitus without complication, without long-term current use of insulin E11.65 [facility] [id number] [place] [address] 98682 -6384 Jun, Acute nasopharyngitis J00 and BMI 50.0-59.9, adult Z68.43 [facility] [address] 91282- 9632 Jun, Fibromyalgia M79.7 [facility] [id number] [place] [address] 23546- 8478 May, [facility] [address] [place] [address]- 2406 May, Fibromyalgia M79.7 [facility] [id number] [place] [address] 26582 2546 Apr, Fibromyalgia M79.7 [facility] [address], [place] [address] 2546 Apr, [facility] [id number] [place] [address] 14452 2546 Apr, [facility] [id number] [place] [address] 96431 2546 Apr, Arthritis M19.90 [facility] [id number] [place] [address] 11176 2546 Apr, Arthritis M19.90 [facility] [id number] [place] [address] 09930 2546 Apr, Arthritis M19.90 and Controlled type 2 diabetes mellitus without complication, without long-term current use of insulin E11.9 [facility] [address], [place] [address] 2546 Apr, [facility] [id number] [place] [address] 08545 2546 Apr, Fibromyalgia M79.7 [facility] [address], [place] [address] 2546 Mar, [facility] [address], [place] [address] 2546 Mar, [facility] [address], [place] [address] 2546 Mar, Fibromyalgia M79.7 [facility] [address], [place] [address] 2546 Feb, [facility] [address], [place] [address] 2546 Feb, [facility] [id number] [place] [address] 27638- 3601 Feb, [facility] [id number] [place] [address] 70297- 9783 Feb, Fibromyalgia M79.7 [facility] [id number] [place] [address] 58195- 1543 Feb, Diabetes type 2, uncontrolled E11.65 and Encounter for immunization Z23 [facility] [id number] [place] [address] 84382- 9120 Jan, [facility] [id number] [place] [address] 20802- 6060 Jan, Fibromyalgia M79.7 [facility] [id number] [place] [address] 24870- 6924 Dec, [facility] [id number] [place] [address] 79394- 2067 Dec, Fibromyalgia M79.7 [facility] [id number] [place] [address] 73645- 6555 Nov, [facility] [id number] [place] [address] 46963- 0013 Nov, [facility] [id number] [place] [address] 81501- 6336 Nov, 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 and Polyneuropathy G62.9 [facility] [id number] [place] [address] 40452- 3764 Nov, [facility] [id number] [place] [address] 74588- 1971 Nov, [facility] [id number] [place] [address] 60383- 4574 Oct, Diabetes type 2, uncontrolled E11.65 [facility] [id number] [place] [address] 19850- 5566 Oct, Diabetes type 2, uncontrolled E11.65 ; Polyneuropathy G62.9 and Pain in right wrist M25.531 [facility] [address], [place] [address]- 2736 Oct, [facility] [id number] [place] [address] 56333 2546 Oct, Pain in left shoulder M25.512 [facility] [id number] [place] [address] 10391- 6906 Sep, [facility] [id number] [place] [address] 56886- 0374 Sep, Pain in left shoulder M25.512 [facility] [id number] [place] [address] 50264- 5236 Sep, [facility] [id number] [place] [address] 30972- 3704 August, Pain in left shoulder M25.512 [facility] [id number] [place] [address] 24042- 8335 Jul, [facility] [id number] [place] [address] 87775- 0072 Jul, [facility] [id number] [place] [address] 02132- 8719 Jul, Pain in left shoulder M25.512 [facility] [address], [place] [address]- 0351 Jun, [facility] [id number] [place] [address] 32543- 7978 Jun, [facility] [id number] [place] [address] 25924- 5279 Jun, Diabetes type 2, uncontrolled E11.65 ; Fibromyalgia M79.7 and Arthritis M19.90 [facility] [address], [place] [address]- 8425 Jun, Pain in left shoulder M25.512 [facility] [id number], [place] [address]- 0838 May, [facility] [id number] [place] [address] 41879- 6798 May, Diabetes type 2, controlled E11.9 [facility] [id number] [place] [address] 31603- 4862 17 May, 2016 [facility] [id number] [place] [address] 12105- 2250 May, Uncontrolled type 2 diabetes mellitus without complication, without long-term current use of insulin E11.65 [facility] [id number] [place] [address] 49201- 5244 May, Pain in left shoulder M25.512 [facility] [id number] [place] [address] 59154- 7327 03 May, 2016 Diabetes type 2, controlled E11.9 and Uncontrolled type 2 diabetes mellitus without complication, without long-term current use of insulin E11.65 [facility] [address] [place] [address] 00540- 0782 Apr, [facility] [id number] [place] [address] 14919- 1969 Apr, [facility] [id number] [place] [address] 84520- 5637 Mar, [facility] [address], [place] [address]- 0252 Mar, [facility] [id number] [place] [address] 88330- 8205 Mar, [facility] [id number] [place] [address] 24727- 2592 Feb, [facility] [address] [address] Feb, Dental examination Z01.20 [facility] [id number] [place] [address] 42312- 1876 Jan, [facility] [address] [id number] [place] [address]- 6446 Dec, [facility] [address] [id number] [place] [address]- 4459 Dec, [facility] [address] [id number] [place] [address]- 5164 Dec, [facility] [address] [id number] [place] [address]- 9697 Dec, Diabetes type 2, controlled E11.9 [facility] [address] [id number] [place] [address]- 4168 Nov, [facility] [address] [id number] [place] [address]- 7000 Nov, [facility] [address] [facility] [id number] [place] [address]- 7855 Nov, [facility] [address] [facility] [id number] [place] [address]- 9812 Nov, [facility] [address] [facility] [id number] [place] [address]- 0338 Oct, [facility] [address] [facility] [id number] [address]- 8729 Oct, [facility] [address] [facility] [id number] [place] [address]- 1038 Oct, [facility] [address] [facility] [id number] [place] [address]- 4810 Sep, [facility] [address] [facility] [id number], [place] [address]- 4682 Sep, Diabetes type 2, controlled E11.9 [facility] [address] [facility] [id number], [place] [address]- 5302 Sep, Diabetes type 2, controlled E11.9 [facility] [id number] [place] [address] 83525- 2379 August, [facility] [id number] [place] [address] 15521- 1385 August, [facility] [id number] [place] [address] 42783- 3763 August, Type 2 diabetes mellitus without complication E11.9 and Pain in left shoulder M25.512 [facility] [id number] [place] [address] 70523- 9475 Jul, [facility] [id number] [place] [address] 50057- 0474 Jul, Diabetes type 2, controlled E11.9 and Hypertension, benign I10 [facility] [id number] [place] [address] 15324- 8679 Jun, [facility] [id number] [place] [address] 82240- 9511 Jun, [facility] [id number] [place] [address] 74823- 3668 Jun, Diabetes 250.00 [facility] [id number] [place] [address] 93671- 5357 Jun, [facility] [id number] [place] [address] 41492- 5019 May, Diabetes type 2, uncontrolled E11.65 [facility] [id number] [place] [address] 75792- 6010 May, [facility] [id number] [place] [address] 01938- 1998 Apr, Type 2 diabetes mellitus without complication E11.9 [facility] [id number] [place] [address] 60834- 2635 Apr, Encounter for immunization Z23 [facility] [id number] [place] [address] 04232- 2594 Apr, [facility] [address] [place] 2244 Mar, [facility] [address] [id number] [place] [address]- 2644 Mar, [facility] [address] [facility] [id number] [place] 7216 Mar, [facility] [address] [facility] [id number], [place] [address]- 9215 Feb, [facility] [address] [facility] [id number] [place] [address]- 3653 Jan, [facility] [address] [place] [address]- 0597 Jan, [facility] [address], [place] [address]- 5783 Jan, [facility] [address], [place] [address]- 8441 Dec, Diabetes 250.00 and COPD (chronic obstructive pulmonary disease) 496 [facility] [id number], [place] [address]- 2753 Dec, [facility] [address], [place] [address]- 5843 Dec, [facility] [address], [place] [address]- 4554 Nov, [facility] [address] [facility] [id number], [place] [address]- 0434 Oct, Diabetes 250.00 [facility] [address] [id number], [place] [address]- 6315 Sep, [facility] [address] [facility] [id number] 0427 Sep, [facility] [id number], [place] [address]- 7690 Sep, [facility] [address], [place] [address]- 4085 Sep, Diabetes 250.00 [facility] [address] [place] [address] 99605- 4655 Sep, [facility] [id number], [place] [address]- 3476 Sep, [facility] [id number] [place] [address] 78244- 8278 August, Hypertension, essential, benign 401.1 ; Coronary atherosclerosis of [place] coronary artery 414.01 and Diabetic neuropathy associated with type 2 diabetes mellitus 250.60 [facility] [id number] [place] [address] 09627- 7507 Jul, [facility] [id number], [place] [address]- 8617 Jul, [facility] [id number] [place] [address] 10208- 9152 Jul, [facility] [address], [place] [address]- 4578 Jun, [facility] [id number], [place] [address]- 6508 Jun, [facility] [address], [place] [address]- 8567 Jun, [facility] [address], [place] [address]- 9506 Jun, [facility] [address], [place] [address]- 7256 Jun, [facility] [id number], [place] [address]- 2686 May, [facility] [address], [place] [address]- 4906 May, [facility] [address], [place] [address]- 7324 May, 2014 [facility] [place] [facility] [address] [id number] [place] [address]- 9693 May, [facility] [place] [facility] [address] [id number] [place] [address]- 9547 May, [facility] [place] [facility] [address] [facility] [id number] [place] [address]- 7453 May, [facility] [place] [facility] [address] [id number] [place] [address]- 0652 May, [facility] [place] [facility] [address] [id number] [place] [address]- 8298 Apr, [facility] [place] [facility] [address] [id number] [place] [address]- 1021 Apr, [facility] [place] [facility] [address] [id number] [place] [address]- 3109 Apr, [facility] [place] [facility] [address] [id number] [place] [address]- 4856 Apr, [facility] [place] [facility] [address] [id number] [place] [address]- 2523 Mar, [facility] [place] [facility] [address] [id number] [place] [address]- 6000 Mar, [facility] [place] [facility] [address] [facility] [id number] [place] [address]- 3993 Mar, [facility] [place] [facility] [address] [id number] [place] [address] Mar, [facility] [place] [facility] [address] [id number] [place] [address] Feb, [facility] [place] [facility] [address] [id number] [place] [address] Feb, [facility] [place] [facility] [address] [facility] [id number] [place] [address] Feb, [facility] [place] [facility] [address] [id number] [place] [address] Feb, [facility] [place] [facility] [address] [id number] [place] [address] Feb, [facility] [place] [facility] [address] [id number] [place] [address] Feb, [facility] [place] [facility] [address] [id number] [place] [address] Feb, [facility] [place] [facility] [address] [id number] [place] [address] Jan, [facility] [place] [facility] [address] [id number] [place] [address] Jan, [facility] [place] [facility] [address] [id number] [place] [address] Dec, [facility] [place] [facility] [address] [id number] [place] [address] Dec, [facility] [place] [facility] [address] [id number] [place] [address] Dec, [facility] [place] [facility] [address] [id number] [place] [address] Dec, [facility] [place] [facility] [address] [id number] [place] [address]- [address] Dec, [facility] [place] [facility] [address] [id number] [place] [address]- [address] Dec, [facility] [place] [facility] [address] [id number] [place] [address]- [address] Dec, [facility] [place] [facility] [address] [id number] [place] [address] Dec, [facility] [place] [facility] [address] [id number] [place] [address] Nov, [facility] [place] [facility] [address] [id number] [place] [address]- [address] Nov, [facility] [place] [facility] [address] [id number] [place] [address]- [address] Nov, [facility] [place] [facility] [address] [id number] [place] [address]- [address] Nov, [facility] [place] [facility] [address] [id number] [place] [address] Oct, [facility] [place] [facility] [address] [id number] [place] [address] Oct, [facility] [place] [facility] [address] [id number] [place] [address] Oct, [facility] [place] [facility] [address] [id number] [place] [address] Oct, [facility] [place] [facility] [address] [id number] [place] [address] Oct, [facility] [place] [facility] [address] [id number] [place] [address] Oct, [facility] [place] [facility] [address] [id number] [place] [address]- [address] Oct, [facility] [place] [facility] [address] [id number] [place] [address] Oct, [facility] [place] [facility] [address] [id number] [place] [address] Sep, [facility] [place] [facility] [address] [id number] [place] [address] Sep, [facility] [place] [facility] [address] [id number] [place] [address] August, [facility] [place] [facility] [address] [id number] [place] [address] August, [facility] [place] [facility] [address] [id number] [place] [address] Jul, [facility] [place] [facility] [address] [id number], [place] [address] Jul, [facility] [address] [id number] [place] [address] Jul, [facility] [place] [facility] [address] [id number] [place] [address] 116[address] Jul, [facility] [place] [facility] [address] [id number] [place] [address] Jul, [facility] [place] [facility] [address] [id number] [place] [address] 6[address] Jul, [facility] [place] [facility] [address] [id number] [place] [address] Jul, [facility] [place] [facility] [address] [id number] [place] [address] 4[address] Jul, [facility] [address] [id number] [place] [address] Jun, [facility] [place] [facility] [address] [id number] [place] [address] Jun, [facility] [place] [facility] [address] [id number] [place] [address]- [address]297 Jun, [facility] [place] [facility] [address] [id number] [place] [address] 27[address] Jun, [facility] [place] [facility] [address] [id number] [place] [address]- [address] May, [facility] [place] [facility] [address] [id number] [place] [address]- 2495 May, [facility] [place] [facility] [address] [id number] [place] [address]- 9787 Apr, [facility] [place] [facility] [address] [id number] [place] [address]- 4047 Apr, [facility] [place] [facility] [address] [id number] [place] [address]- [address]253 Mar, [facility] [place] [facility] [address] [id number] [place] [address]- 5757 Mar, [facility] [place] [facility] [address] [id number] [place] [address]- 6499 18 Mar, 2013 [facility] [place] [facility] [address] [id number] [place] [address]- 9485 18 Mar, 2013 [facility] [place] [facility] [address] [id number] [place] [address]- 5139 18 Mar, 2013 [facility] [place] [facility] [address] [id number] [place] [address]- 0789 18 Mar, 2013 [facility] [place] [facility] [address] [id number] [place] [address]- 1176 Feb, [facility] [place] [facility] [address] [id number] [place] [address]- 3840 Feb, [facility] [place] [facility] [address] [id number] [place] [address]- 6631 Feb, [facility] [place] [facility] [address] [id number] [place] [address]- 7570 Feb, [facility] [place] [facility] [address] [id number] [place] [address]- 7342 Feb, [facility] [place] [facility] [address] [id number] [place] [address] 18 Feb, 2013 [facility] [place] [facility] [address] [id number] [place] [address]- 54[address] 12 Feb, 2013 [facility] [place] [facility] [address] [id number] [place] [address]- 1783 12 Feb, 2013 [facility] [place] [facility] [address] [id number] [place] [address]- 7696 15 Jan, 2013 [facility] [place] [facility] [address] [id number] [place] [address]- 6445 15 Jan, 2013 [facility] [place] [facility] [address] [id number] [place] [address]- 8364 14 Jan, 2013 [facility] [place] [facility] [address] [id number] [place] [address]- 4695 14 Jan, 2013 [facility] [place] [facility] [address] [id number] [place] [address]- 6285 18 Dec, 2012 [facility] [place] [facility] [address] [id number] [place] [address]- 6[address] 13 Dec, 2012 [facility] [place] [facility] [address] [id number] [place] [address] 2012 [facility] [place] [facility] [address] [id number] [place] [address]- [address]558 23 Nov, 2012 [facility] [place] [facility] [address] [id number] [place] [address]- 0589 Nov, [facility] [place] [facility] [address] [id number] [place] [address]- 4009 16 Oct, 2012 [facility] [place] [facility] [address] [id number], [place] [address]- [address] Oct, [facility] [place] [facility] [address] [id number] [place] [address]- 9248 Oct, [facility] [place] [facility] [address] [id number], [place] [address]- 1797 Sep, [facility] [place] [facility] [address] [id number], [place] [address]- 07[address] Sep, [facility] [place] [facility] [address] [id number], [place] [address]- 7031 18 Sep, 2012 [facility] [place] [facility] [address] [id number], [place] [address]- 1486 Sep, [facility] [place] [facility] [address] [id number], [place] [address]- [address] Sep, [facility] [place] [facility] [address] [id number], [place] [address]- [address] 05 Sep, 2012 [facility] [place] [facility] [address] [id number] [place] [address]- 47[address] August, [facility] [address] [id number] [place] [address] August, [facility] [address] [id number] [place] [address]- 8126 August, [facility] [address] [id number] [place] [address]- 5917 August, [facility] [address] [id number] [place] [address]- 1902 August, [facility] [address] [id number] [place] [address]- 0370 August, [facility] [address] [id number] [place] [address]- 7836 August, [facility] [address] [id number] [place] [address]- 6040 Jul, [facility] [address] [id number] [place] [address]- 9127 Jul, [facility] [address] [id number] [place] [address]- 6596 Jun, [facility] [address] [id number] [place] [address]- 3392 Jun, [facility] [address] [id number] [place] [address]- 9162 May, [facility] [address] [id number] [place] [address]- 2171 May, [facility] [address] [id number] [place] [address]- 6859 Apr, [facility] [address] [id number] [place] [address]- 6050 Mar, [facility] [address] [id number] [place] [address]- 5508 Mar, [facility] [place] [facility] [address] [id number] [place] [address]- 0629 Mar, [facility] [place] [facility] [address] [id number] [place] [address]- 2013 Mar, [facility] [place] [facility] [address] [id number] [place] [address] Mar, [facility] [place] [facility] [address] [id number] [place] [address]- 7036 Mar, [facility] [place] [facility] [address] [id number] [place] [address]- 8769 Feb, [facility] [place] [facility] [address] [id number] [place] [address]- 4493 Feb, [facility] [place] [facility] [address] [facility] [id number] [place] [address]- 9715 Feb, [facility] [place] [facility] [address] [id number], [place] [address]- 9471 Feb, [facility] [place] [facility] [address] [facility] [id number], [place] [address]- 4431 Feb, [facility] [place] [facility] [address] [facility] [id number], [place] [address]- 5308 Feb, [facility] [place] [facility] [address] [facility] [id number], [place] [address]- 2810 Feb, [facility] [place] [facility] [address] [id number], [place] [address]- 3246 Feb, [facility] [place] [facility] [address] [id number], [place] [address]- 1567 Jan, [facility] [place] [facility] [address] [id number], [place] [address]- 2768 Jan, [facility] [place] [facility] [address] [facility] [id number][place] [address] Dec, [facility] [place] [facility] [address] [id number], [place] [address]- 3492 19 Dec, 2011 [facility] [place] [facility] [address] [id number] [place] [address]- 5240 Dec, [facility] [place] [facility] [address] [id number] [place] [address]- 7716 Dec, [facility] [place] [facility] [address] [id number] [place] [address]- 6386 Dec, [facility] [place] [facility] [address] [id number] [place] [address]- 4440 Nov, [facility] [place] [facility] [address] [id number] [place] [address]- 3458 Oct, [facility] [place] [facility] [address] [id number] [place] [address]- 0008 Oct, [facility] [place] [facility] [address] [id number] [address]- 7158 Sep, [facility] [place] [facility] [address] [id number] [place] [address]- 7111 Sep, [facility] [place] [facility] [address] [facility] [id number] [place] [address]- 1868 Sep, [facility] [place] [facility] [address] [facility] [id number] [place] [address]- 5055 Sep, [facility] [place] [facility] [address] [id number] [place] [address]- 8753 Sep, [facility] [place] [facility] [address] [id number] [place] [address]- 7167 Sep, [facility] [place] [facility] [address] [id number] [place] [address]- 8752 Sep, [facility] [place] [facility] [address] [facility] [id number] [place] [address]- 5553 Sep, [facility] [place] [facility] [address] [facility] [id number] [place] [address]- 3965 August, [facility] [place] [facility] [address] [id number] [place] [address]- 5862 August, [facility] [address] [id number] [place] [address]- 3483 August, [facility] [place] [facility] [address] [id number] [place] [address]- 6526 Jul, [facility] [place] [facility] [address] [id number] [place] [address]- 1556 Jul, [facility] [place] [facility] [address] [id number] [place] [address]- 4879 Jun, [facility] [place] [facility] [address] [id number] [place] [address]- 7026 Jun, [facility] [place] [facility] [address] [id number] [place] [address]- 7841 Jun, [facility] [place] [facility] [address] [id number] [place] [address]- 9743 Jun, [facility] [place] [facility] [address] [id number] [place] [address]- 9630 May, [facility] [place] [facility] [address] [id number] [place] [address]- 2682 May, [facility] [place] [facility] [address] [id number] [place] [address]- 1922 Apr, [facility] [place] [facility] [address] [id number] [place] [address]- 6872 Apr, [facility] [place] [facility] [address] [id number] [place] [address]- 6223 Apr, [facility] [place] [facility] [address] [id number] [place] [address]- 9546 14 Mar, 2011 [facility] [place] [facility] [address] [id number] [place] [address]- 4966 09 Mar, 2011 [facility] [place] [facility] [address] [id number] [place] [address]- 5393 07 Mar, 2011 [facility] [place] [facility] [address] [id number] [place] [address]- 2051 Feb, [facility] [place] [facility] [address] [id number] [place] [address]- 7567 Feb, [facility] [place] [facility] [address] [facility] [id number] [place] [address]- 4680 Feb, [facility] [place] [facility] [address] [id number] [place] [address]- 8804 Feb, [facility] [place] [facility] [address] [id number] [place] [address]- 7577 Jan, [facility] [place] [facility] [address] [id number] [place] [address]- 8488 14 Jan, 2011 [facility] [place] [facility] [address] [facility] [id number] [place] [address]- 7758 Jan, [facility] [place] [facility] [address] [id number], [place] [address]- 5638 16 Dec, 2010 [facility] [place] [facility] [address] [id number], [place] [address]- 3641 Oct, [facility] [place] [facility] [address] [facility] [id number], [place] [address]- 0495 Mar, [facility] [place] [facility] [address] [id number], [place] [address]- 1102 Feb, [facility] [place] [facility] [address] [id number], [place] [address]- 1542 Feb, [facility] [place] [facility] [address] [id number] [place] [address]- 2236 16 May, 2009 [facility] [place] [facility] [address] [facility] [id number], [place] [address]- 7938 Apr, [facility] [place] [facility] [address] [facility] [id number], [place] [address]- 2894 Mar, [facility] [place] [facility] [address] [facility] [id number], [place] [address] 2546 Jan, [facility] [address] [facility] [id number], [place] [address]- 2724 Oct, [facility] [address] [id number], [place] [address]- 2546 Jul, [facility] [address] [facility] [id number], [place] [address]- 2546 Mar, [facility] [address] [id number], [place] [address]- 2548 Feb, [facility] [address] [facility] [id number], [place] [address]- 0355 Jan, IMMUNIZATIONS No Known Immunizations SOCIAL HISTORY Never Assessed REASON FOR VISIT Refill request PLAN OF CARE VITAL SIGNS MEDICATIONS Medication Instructions Dosage Frequency Start Date End Date Duration Status Blood Glucose Test 1 1 test Jul, Active Lancets - as directed Oct, Active RESULTS No Results PROCEDURES No Known [...]
--- OUTSIDE RECORDS SUMMARY | 2018-07-05 12:31 | XMS REPORT ---
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 Name Role Phone KATHYA FISCHER Unavailable PROBLEMS Type Condition ICD9-CM Code KUH38-OU Code Onset Dates Condition Status SNOMED Code Problem Arthritis M19.90 Active 2250610 Problem 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 Active 87654202 Problem Polyneuropathy G62.9 Active 63523967 Problem Other male erectile dysfunction N52.8 Active 461404136 Problem Constipation K59.00 Active 83541774 Problem Type 2 diabetes mellitus with 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 E11.65 Active 196774441 Problem Controlled type 2 diabetes mellitus without complication, without long -term current use of insulin E11.9 Active 477720350 Problem group home current use of insulin Z79.4 Active 857100577 Problem Neuropathy G62.9 Active 304900102 Problem Obstructive sleep apnea G47.33 Active 92944424 Problem Hypertension, benign I10 Active 93153936 Problem Uncontrolled type 2 diabetes mellitus without complication, without long-term current use of insulin E11.65 Active 696711261 Problem Stress incontinence of urine N39.3 Active 72412152 Problem Fibromyalgia M79.7 Active 990395029 ALLERGIES No Information ENCOUNTERS Encounter Location Date Diagnosis [facility] [address], [place] [address] Dec, [facility] [address], [place] [address] 2165 Dec, [facility] [id number] [place] [address] 06137- 1370 Nov, [facility] [id number] [place] [address] 68938- 4227 Nov, Therapeutic drug monitoring Z51.81 [facility] [id number] [place] [address] 57672- 4110 Nov, [facility] [id number] [place] [address] 51661- 2897 Nov, Therapeutic drug monitoring Z51.81 ; Fibromyalgia M79.7 and Controlled type 2 diabetes mellitus without complication, without long-term current use of insulin E11.9 [facility] [id number] [place] [address] 02854- 1381 Nov, Type 2 diabetes mellitus with 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 E11.65 [facility] [id number] [place] [address] 11269- 4408 Nov, [facility] [address] 24693- 5960 Nov, [facility] [id number] [place] [address] 64167- 0711 Nov, Type 2 diabetes mellitus with 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 E11.65 [facility] [address] 50198- 4842 Nov, [facility] [id number] [place] [address] 90892- 0356 Nov, [facility] [id number] [place] [address] 64563- 5371 Nov, Constipation K59.00 [facility] [id number] [place] [address] 88988- 8185 Oct, Diabetes type 2, controlled E11.9 [facility] [id number] [place] [address] 84314- 7176 Oct, Type 2 diabetes mellitus with 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 E11.65 ; 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 and Neuropathy G62.9 [facility] [id number] [place] [address] 68214- 1395 Oct, [facility] [id number] [place] [address] 87117- 7064 Oct, [facility] [id number] [place] [address] 52086- 9213 Oct, [facility] [address], [place] [address] 5121 Oct, [facility] [address] 5946 Oct, [facility] [address] 6817 Oct, [facility] [id number] [place] [address] 009303- 2597 Oct, [facility] [id number] [place] [address] 27087- 8894 Sep, [facility] [id number] [place] [address] 41295- 0730 Sep, Uncontrolled type 2 diabetes mellitus without complication, without long-term current use of insulin E11.65 [facility] [id number] [place] [address] 75781- 6266 Sep, Hypertension, benign I10 ; Fibromyalgia M79.7 ; Controlled type 2 diabetes mellitus without complication, without long-term current use of insulin E11.9 and Uncontrolled type 2 diabetes mellitus without complication, without long-term current use of insulin E11.65 [facility] [address], [place] [address]- 8548 Sep, [facility] [address], [place] [address]- 1595 Sep, Uncontrolled type 2 diabetes mellitus without complication, without long-term current use of insulin E11.65 [facility] [address], [place] [address]- 5227 Sep, [facility] [address] 6476 Sep, [facility] [id number], [place] [address]- 7530 Sep, Uncontrolled type 2 diabetes mellitus without complication, without long-term current use of insulin E11.65 and Fibromyalgia M79.7 [facility] [id number] [place] [address] 68958- 1336 August, [facility] [id number] [place] [address] 18821- 3642 August, [facility] [id number] [place] [address] 43029- 3039 August, [facility] [address] 07280- 2093 August, Fibromyalgia M79.7 [facility] [address] 43529- 5754 Jul, Hypertension, benign I10 [facility] [address] 00133- 4636 Jul, Fibromyalgia M79.7 [facility] [address] 16182- 8857 Jul, [facility] [id number] [place] [address] 20724- 3932 Jun, [facility] [address] 10010- 6852 Jun, Hypertension, benign I10 ; Arthritis M19.90 ; group home current use 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 Z79.891 and Uncontrolled type 2 diabetes mellitus without complication, without long-term current use of insulin E11.65 [facility] [id number] [place] [address] 67074 -9879 Jun, Acute nasopharyngitis J00 and BMI 50.0-59.9, adult Z68.43 [facility] [address] 76210- 3651 Jun, Fibromyalgia M79.7 [facility] [id number] [place] [address] 24418- 1540 May, [facility] [address] [place] [address]- 7636 May, Fibromyalgia M79.7 [facility] [id number] [place] [address] 40813 2546 Apr, Fibromyalgia M79.7 [facility] [address], [place] [address] 2546 Apr, [facility] [id number] [place] [address] 96845 2546 Apr, [facility] [id number] [place] [address] 31455 2546 Apr, Arthritis M19.90 [facility] [id number] [place] [address] 46823 2546 Apr, Arthritis M19.90 [facility] [id number] [place] [address] 92930 2546 Apr, Arthritis M19.90 and Controlled type 2 diabetes mellitus without complication, without long-term current use of insulin E11.9 [facility] [address], [place] [address] 2546 Apr, [facility] [id number] [place] [address] 27347 2546 Apr, Fibromyalgia M79.7 [facility] [address], [place] [address] 2546 Mar, [facility] [address], [place] [address] 2546 Mar, [facility] [address], [place] [address] 2546 Mar, Fibromyalgia M79.7 [facility] [address], [place] [address] 2546 Feb, [facility] [address], [place] [address] 2546 Feb, [facility] [id number] [place] [address] 87924- 2544 Feb, [facility] [id number] [place] [address] 96261- 3323 Feb, Fibromyalgia M79.7 [facility] [id number] [place] [address] 44674- 0572 Feb, Diabetes type 2, uncontrolled E11.65 and Encounter for immunization Z23 [facility] [id number] [place] [address] 51598- 0756 Jan, [facility] [id number] [place] [address] 87196- 9374 Jan, Fibromyalgia M79.7 [facility] [id number] [place] [address] 47951- 0757 Dec, [facility] [id number] [place] [address] 28991- 2587 Dec, Fibromyalgia M79.7 [facility] [id number] [place] [address] 53018- 9637 Nov, [facility] [id number] [place] [address] 46617- 7746 Nov, [facility] [id number] [place] [address] 06227- 0256 Nov, 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 and Polyneuropathy G62.9 [facility] [id number] [place] [address] 49916- 2358 Nov, [facility] [id number] [place] [address] 39025- 1089 Nov, [facility] [id number] [place] [address] 15361- 8112 Oct, Diabetes type 2, uncontrolled E11.65 [facility] [id number] [place] [address] 71908- 9219 Oct, Diabetes type 2, uncontrolled E11.65 ; Polyneuropathy G62.9 and Pain in right wrist M25.531 [facility] [address], [place] [address]- 1776 Oct, [facility] [id number] [place] [address] 06816 2546 Oct, Pain in left shoulder M25.512 [facility] [id number] [place] [address] 81828- 1946 Sep, [facility] [id number] [place] [address] 32970- 5691 Sep, Pain in left shoulder M25.512 [facility] [id number] [place] [address] 77242- 1076 Sep, [facility] [id number] [place] [address] 49572- 9479 August, Pain in left shoulder M25.512 [facility] [id number] [place] [address] 91514- 8159 Jul, [facility] [id number] [place] [address] 00338- 4791 Jul, [facility] [id number] [place] [address] 78198- 3999 Jul, Pain in left shoulder M25.512 [facility] [address], [place] [address]- 6065 Jun, [facility] [id number] [place] [address] 91177- 1385 Jun, [facility] [id number] [place] [address] 18289- 0247 Jun, Diabetes type 2, uncontrolled E11.65 ; Fibromyalgia M79.7 and Arthritis M19.90 [facility] [address], [place] [address]- 4402 Jun, Pain in left shoulder M25.512 [facility] [id number], [place] [address]- 9453 May, [facility] [id number] [place] [address] 25362- 5619 May, Diabetes type 2, controlled E11.9 [facility] [id number] [place] [address] 46925- 2537 17 May, 2016 [facility] [id number] [place] [address] 06964- 3868 May, Uncontrolled type 2 diabetes mellitus without complication, without long-term current use of insulin E11.65 [facility] [id number] [place] [address] 55061- 5099 May, Pain in left shoulder M25.512 [facility] [id number] [place] [address] 11631- 8787 03 May, 2016 Diabetes type 2, controlled E11.9 and Uncontrolled type 2 diabetes mellitus without complication, without long-term current use of insulin E11.65 [facility] [id number] [place] [address] 26795- 9229 Apr, [facility] [id number] [place] [address] 09292- 6489 Apr, [facility] [id number] [place] [address] 66043- 8874 Mar, [facility] [address], [place] [address]- 8269 Mar, [facility] [id number] [place] [address] 17225- 6117 Mar, [facility] [id number] [place] [address] 76635- 7844 Feb, [facility] [id number] [address] Feb, Dental examination Z01.20 [facility] [id number] [place] [address] 41793- 4755 Jan, [facility] [address] [id number] [place] [address]- 7053 Dec, [facility] [address] [id number] [place] [address]- 3987 Dec, [facility] [address] [id number] [place] [address]- 9817 Dec, [facility] [address] [id number] [place] [address]- 5336 Dec, Diabetes type 2, controlled E11.9 [facility] [address] [id number] [place] [address]- 2377 Nov, [facility] [address] [id number] [place] [address]- 7019 Nov, [facility] [address] [facility] [id number] [place] [address]- 7680 Nov, [facility] [address] [id number] [place] [address]- 2464 Nov, [facility] [address] [facility] [id number] [place] [address]- 4099 Oct, [facility] [address] [id number], [place] [address]- 8929 Oct, [facility] [address] [facility] [id number] [place] [address]- 7775 Oct, [facility] [address] [facility] [facility] [id number] [place] [address]- 4924 Sep, [facility] [address] [facility] [id number], [place] [address]- 7240 Sep, Diabetes type 2, controlled E11.9 [facility] [address] [facility] [id number], [place] [address]- 4662 Sep, Diabetes type 2, controlled E11.9 [facility] [address] [id number] [place] [address] 41551- 0660 August, [facility] [id number] [place] [address] 78878- 5486 August, [facility] [id number] [place] [address] 30211- 8293 August, Type 2 diabetes mellitus without complication E11.9 and Pain in left shoulder M25.512 [facility] [id number] [place] [address] 65974- 9194 Jul, [facility] [id number] [place] [address] 27356- 7338 Jul, Diabetes type 2, controlled E11.9 and Hypertension, benign I10 [facility] [id number] [place] [address] 49614- 4700 Jun, [facility] [id number] [place] [address] 47647- 1518 Jun, [facility] [id number] [place] [address] 77399- 4618 Jun, Diabetes 250.00 [facility] [id number] [place] [address] 06696- 9864 Jun, [facility] [id number] [place] [address] 52283- 3225 May, Diabetes type 2, uncontrolled E11.65 [facility] [id number] [place] [address] 19203- 9863 May, [facility] [id number] [place] [address] 39574- 8511 Apr, Type 2 diabetes mellitus without complication E11.9 [facility] [id number] [place] [address] 50577- 6147 Apr, Encounter for immunization Z23 [facility] [id number] [place] [address] 07506- 9292 Apr, [facility] [address]- 2331 Mar, [facility] [address] [id number] [place] [address]- 5302 Mar, [facility] [address] [facility] [id number] [place] 8092 Mar, [facility] [address] [facility] [id number], [place] [address]- 1370 Feb, [facility] [address] [facility] [facility] [id number] [place] [address]- 4569 Jan, [facility] [address] [place] [address]- 9123 Jan, [facility] [address], [place] [address]- 9636 Jan, [facility] [address], [place] [address]- 3580 Dec, Diabetes 250.00 and COPD (chronic obstructive pulmonary disease) 496 [facility] [id number], [place] [address]- 1774 Dec, [facility] [address], [place] [address]- 4222 Dec, [facility] [address], [place] [address]- 9337 Nov, [facility] [address] [facility] [id number], [place] [address]- 7627 Oct, Diabetes 250.00 [facility] [address] [id number], [place] [address]- 8073 Sep, [facility] [address] [facility] [id number]- 9777 Sep, [facility] [id number], [place] [address]- 8785 Sep, [facility] [address], [place] [address]- 0963 Sep, Diabetes 250.00 [facility] [id number] [place] [address] 54034- 9843 Sep, [facility] [id number] [address]- 7856 Sep, [facility] [id number] [place] [address] 03244- 0822 August, Hypertension, essential, benign 401.1 ; Coronary atherosclerosis of samish coronary artery 414.01 and Diabetic neuropathy associated with type 2 diabetes mellitus 250.60 [facility] [id number] [place] [address] 20606- 4102 Jul, [facility] [id number] [address]- 4675 Jul, [facility] [id number] [place] [address] 51171- 1733 Jul, [facility] [address], [place] [address]- 8864 Jun, [facility] [id number], [place] [address]- 9491 Jun, [facility] [address], [place] [address]- 3150 Jun, [facility] [address], [place] [address]- 6546 Jun, [facility] [address], [place] [address]- 6206 Jun, [facility] [id number], [place] [address]- 9786 May, [facility] [address], [place] [address]- 5036 May, [facility] [address], [place] [address]- 5105 May, 2014 [facility] [place] [facility] [address] [id number] [place] [address]- 4302 May, [facility] [place] [facility] [address] [id number] [place] [address] May, [facility] [place] [facility] [address] [facility] [id number] [place] [address] May, [facility] [place] [facility] [address] [id number] [place] [address] May, [facility] [place] [facility] [address] [id number] [place] [address] Apr, [facility] [place] [facility] [address] [id number] [place] [address] Apr, [facility] [place] [facility] [address] [id number] [place] [address] Apr, [facility] [place] [facility] [address] [id number] [place] [address] Apr, [facility] [place] [facility] [address] [id number] [place] [address] Mar, [facility] [place] [facility] [address] [id number] [place] [address] Mar, [facility] [place] [facility] [address] [facility] [id number] [place] [address] Mar, [facility] [place] [facility] [address] [id number] [place] [address] Mar, [facility] [place] [facility] [address] [id number] [place] [address] Feb, [facility] [place] [facility] [address] [id number] [place] [address] Feb, [facility] [place] [facility] [address] [facility] [id number] [place] [address] Feb, [facility] [place] [facility] [address] [id number] [place] [address] Feb, [facility] [place] [facility] [address] [id number] [place] [address] Feb, [facility] [place] [facility] [address] [id number] [place] [address] Feb, [facility] [place] [facility] [address] [id number] [place] [address] Feb, [facility] [place] [facility] [address] [id number] [place] [address] Jan, [facility] [place] [facility] [address] [id number] [place] [address] Jan, [facility] [place] [facility] [address] [id number] [place] [address] Dec, [facility] [place] [facility] [address] [id number] [place] [address] Dec, [facility] [place] [facility] [address] [id number] [place] [address] Dec, [facility] [place] [facility] [address] [id number] [place] [address] Dec, [facility] [place] [facility] [address] [id number] [place] [address] Dec, [facility] [place] [facility] [address] [id number] [place] [address] Dec, [facility] [place] [facility] [address] [id number] [place] [address] Dec, [facility] [place] [facility] [address] [id number] [place] [address] Dec, [facility] [place] [facility] [address] [id number] [place] [address] 69[address] Nov, [facility] [place] [facility] [address] [id number] [place] [address]- 6721 Nov, [facility] [place] [facility] [address] [id number] [place] [address]394 Nov, [facility] [place] [facility] [address] [id number] [place] [address] 8763 Nov, [facility] [place] [facility] [address] [id number] [place] [address] 8983 Oct, [facility] [place] [facility] [address] [id number] [place] [address] 7651 Oct, [facility] [place] [facility] [address] [id number] [place] [address]- 6685 Oct, [facility] [place] [facility] [address] [id number] [place] [address] 1321 Oct, [facility] [place] [facility] [address] [id number] [place] [address] 4614 Oct, [facility] [place] [facility] [address] [id number] [place] [address] 6[address] Oct, [facility] [place] [facility] [address] [id number] [place] [address]- 6966 Oct, [facility] [place] [facility] [address] [id number] [place] [address]- 5060 Oct, [facility] [place] [facility] [address] [id number] [place] [address]- 1395 Sep, [facility] [place] [facility] [address] [id number] [place] [address]- 6065 Sep, [facility] [place] [facility] [address] [id number] [place] [address] 9000 August, [facility] [place] [facility] [address] [id number] [place] [address]- 4947 August, [facility] [place] [facility] [address] [id number] [place] [address]- 2548 Jul, [facility] [place] [facility] [address] [id number], [place] [address] Jul, [facility] [address] [id number] [place] [address]- 9529 Jul, [facility] [place] [facility] [address] [id number] [place] [address]- 5978 Jul, [facility] [place] [facility] [address] [id number] [place] [address]- 6637 Jul, [facility] [place] [facility] [address] [id number] [place] [address]- 6356 Jul, [facility] [place] [facility] [address] [id number] [place] [address]- 2553 Jul, [facility] [place] [facility] [address] [id number] [place] [address]- 0657 Jul, [facility] [address] [id number] [place] [address]- 0736 Jun, [facility] [place] [facility] [address] [id number] [place] [address]- 1089 Jun, [facility] [place] [facility] [address] [id number] [place] [address]- 1261 Jun, [facility] [place] [facility] [address] [id number] [place] [address]- 5240 Jun, [facility] [place] [facility] [address] [id number] [place] [address] 8000 May, [facility] [place] [facility] [address] [id number] [place] [address]- 8041 May, [facility] [place] [facility] [address] [id number] [place] [address]- 3759 Apr, [facility] [place] [facility] [address] [id number] [place] [address]- 6783 Apr, [facility] [place] [facility] [address] [id number] [place] [address]- 0531 Mar, [facility] [place] [facility] [address] [id number] [place] [address]- 6010 Mar, [facility] [place] [facility] [address] [id number] [place] [address]- 4818 18 Mar, 2013 [facility] [place] [facility] [address] [id number] [place] [address]- 1605 18 Mar, 2013 [facility] [place] [facility] [address] [id number] [place] [address]- 5819 18 Mar, 2013 [facility] [place] [facility] [address] [id number] [place] [address]- 5933 18 Mar, 2013 [facility] [place] [facility] [address] [id number] [place] [address]- 9638 Feb, [facility] [place] [facility] [address] [id number] [place] [address]- 8378 Feb, [facility] [place] [facility] [address] [id number] [place] [address]- 3729 Feb, [facility] [place] [facility] [address] [id number] [place] [address]- 0861 Feb, [facility] [place] [facility] [address] [id number] [place] [address]- 5479 Feb, [facility] [place] [facility] [address] [id number] [place] [address]- 9249 18 Feb, 2013 [facility] [place] [facility] [address] [id number] [place] [address]- 8973 12 Feb, 2013 [facility] [place] [facility] [address] [id number] [place] [address]- 1445 12 Feb, 2013 [facility] [place] [facility] [address] [id number] [place] [address]- 9248 15 Jan, 2013 [facility] [place] [facility] [address] [id number] [place] [address]- 3702 15 Jan, 2013 [facility] [place] [facility] [address] [id number] [place] [address]- 9766 14 Jan, 2013 [facility] [place] [facility] [address] [id number] [place] [address]- 8074 14 Jan, 2013 [facility] [place] [facility] [address] [id number] [place] [address]- 5059 18 Dec, 2012 [facility] [place] [facility] [address] [id number] [place] [address]- 2215 13 Dec, 2012 [facility] [place] [facility] [address] [id number] [place] [address]- 4027 2012 [facility] [place] [facility] [address] [id number] [place] [address]- 3809 23 Nov, 2012 [facility] [place] [facility] [address] [id number] [place] [address]- 2274 Nov, [facility] [place] [facility] [address] [id number] [place] [address]- 6732 16 Oct, 2012 [facility] [place] [facility] [address] [id number], [place] [address]- 2493 Oct, [facility] [place] [facility] [address] [id number] [place] [address]- 9153 Oct, [facility] [place] [facility] [address] [id number], [place] [address]- 6781 Sep, [facility] [place] [facility] [address] [id number], [place] [address]- 4919 Sep, [facility] [place] [facility] [address] [id number], [place] [address]- 8509 18 Sep, 2012 [facility] [place] [facility] [address] [id number], [place] [address]- 5435 Sep, [facility] [place] [facility] [address] [id number], [place] [address]- 0922 Sep, [facility] [place] [facility] [address] [id number], [place] [address]- 2381 05 Sep, 2012 [facility] [place] [facility] [address] [id number] [place] [address]- 9260 August, [facility] [address] [id number] [place] [address]- 4900 August, [facility] [address] [id number] [place] [address]- 9596 August, [facility] [address] [id number] [place] [address]- 5625 August, [facility] [address] [id number] [place] [address]- 5272 August, [facility] [address] [id number] [place] [address]- 8902 August, [facility] [address] [id number] [place] [address]- 4096 August, [facility] [address] [id number] [place] [address]- 6271 Jul, [facility] [address] [id number] [place] [address]- 2674 Jul, [facility] [address] [id number] [place] [address]- 1450 Jun, [facility] [address] [id number] [place] [address]- 2017 Jun, [facility] [address] [id number] [place] [address]- 8302 May, [facility] [address] [id number] [place] [address]- 5285 May, [facility] [address] [id number] [place] [address]- 8968 Apr, [facility] [address] [id number] [place] [address]- 5117 Mar, [facility] [address] [id number] [place] [address]- 7582 Mar, [facility] [place] [facility] [address] [id number] [place] [address]- 8860 Mar, [facility] [place] [facility] [address] [id number] [place] [address]- 8681 Mar, [facility] [place] [facility] [address] [id number] [place] [address] Mar, [facility] [place] [facility] [address] [id number] [place] [address]- 4761 Mar, [facility] [place] [facility] [address] [id number] [place] [address]- 9171 Feb, [facility] [place] [facility] [address] [id number] [place] [address]- 8001 Feb, [facility] [place] [facility] [address] [facility] [facility] [id number] [place] [address]- 2885 Feb, [facility] [place] [facility] [address] [id number], [place] [address]- 2630 Feb, [facility] [place] [facility] [address] [id number], [place] [address]- 9278 Feb, [facility] [place] [facility] [address] [id number], [place] [address]- 0824 Feb, [facility] [place] [facility] [address] [id number], [place] [address]- 8043 Feb, [facility] [place] [facility] [address] [id number], [place] [address]- 7113 Feb, [facility] [place] [facility] [address] [id number], [place] [address]- 1186 Jan, [facility] [place] [facility] [address] [id number], [place] [address]- 9644 Jan, [facility] [place] [facility] [address] [id number][place] [address]010 Dec, [facility] [place] [facility] [address] [id number], [place] [address]- 1099 19 Dec, 2011 [facility] [place] [facility] [address] [id number] [place] [address]- 3903 Dec, [facility] [place] [facility] [address] [id number] [place] [address]- 6106 Dec, [facility] [place] [facility] [address] [id number] [place] [address]- 2086 Dec, [facility] [place] [facility] [address] [id number] [place] [address]- 4367 Nov, [facility] [place] [facility] [address] [id number] [place] [address]- 1770 Oct, [facility] [place] [facility] [address] [id number] [place] [address]- 6705 Oct, [facility] [place] [facility] [address] [id number] [place] [address]- 9743 Sep, [facility] [place] [facility] [address] [id number] [place] [address]- 3756 Sep, [facility] [place] [facility] [address] [id number] [place] [address]- 3536 Sep, [facility] [place] [facility] [address] [id number] [place] [address]- 4394 Sep, [facility] [place] [facility] [address] [id number] [place] [address]- 4620 Sep, [facility] [place] [facility] [address] [id number] [place] [address]- 6304 Sep, [facility] [place] [facility] [address] [id number] [place] [address]- 9446 Sep, [facility] [place] [facility] [address] [id number] [place] [address]- 5746 Sep, [facility] [place] [facility] [address] [id number] [place] [address]- 0798 August, [facility] [place] [facility] [address] [id number] [place] [address]- 1392 August, [facility] [address] [id number] [place] [address]- 4399 August, [facility] [place] [facility] [address] [id number] [place] [address]- 7696 Jul, [facility] [place] [facility] [address] [id number] [place] [address]- 2496 Jul, [facility] [place] [facility] [address] [id number] [place] [address]- 3758 Jun, [facility] [place] [facility] [address] [id number] [place] [address]- 1876 Jun, [facility] [place] [facility] [address] [id number] [place] [address]- 6510 Jun, [facility] [place] [facility] [address] [id number] [place] [address]- 7735 Jun, [facility] [place] [facility] [address] [id number] [place] [address]- 0668 May, [facility] [place] [facility] [address] [id number] [place] [address]- 0883 May, [facility] [place] [facility] [address] [id number] [place] [address]- 0828 Apr, [facility] [place] [facility] [address] [id number] [place] [address]- 5717 Apr, [facility] [place] [facility] [address] [id number] [place] [address]- 8511 Apr, [facility] [place] [facility] [address] [id number] [place] [address]- 9166 14 Mar, 2011 [facility] [place] [facility] [address] [id number] [place] [address]- 0396 09 Mar, 2011 [facility] [place] [facility] [address] [id number] [place] [address]- 5981 07 Mar, 2011 [facility] [place] [facility] [address] [id number] [place] [address]- 1669 Feb, [facility] [place] [facility] [address] [id number] [place] [address]- 6553 Feb, [facility] [place] [facility] [address] [id number] [place] [address]- 3667 Feb, [facility] [place] [facility] [address] [id number] [place] [address]- 0561 Feb, [facility] [place] [facility] [address] [id number] [place] [address]- 1007 Jan, [facility] [place] [facility] [address] [id number] [place] [address]- 2623 14 Jan, 2011 [facility] [place] [facility] [address] [id number] [place] [address]- 7895 Jan, [facility] [place] [facility] [address] [id number], [place] [address]- 0891 16 Dec, 2010 [facility] [place] [facility] [address] [id number], [place] [address]- 6771 Oct, [facility] [place] [facility] [address] [id number], [place] [address]- 8053 Mar, [facility] [place] [facility] [address] [id number], [place] [address]- 0037 Feb, [facility] [place] [facility] [address] [id number], [place] [address]- 9940 Feb, [facility] [place] [facility] [address] [id number] [place] [address]- 8757 16 May, 2009 [facility] [place] [facility] [address] [id number], [place] [address]- 5509 Apr, [facility] [place] [facility] [address] [id number], [place] [address]- 9347 Mar, [facility] [place] [facility] [address] [id number], [place] [address]- 2546 Jan, [facility] [address] [id number], [place] [address]- 4261 Oct, [facility] [address] [id number], [place] [address]- 2546 Jul, [facility] [address] [id number], [place] [address]- 2546 Mar, [facility] [address] [id number], [place] [address]- 2548 Feb, [facility] [address] [id number], [place] [address]- 9421 Jan, IMMUNIZATIONS No Known Immunizations SOCIAL HISTORY [...]
--- OUTSIDE RECORDS SUMMARY | 2018-07-05 12:31 | XMS REPORT ---
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 Name Role Phone KATHYA FISCHER Unavailable PROBLEMS Type Condition ICD9-CM Code RNS41-UG Code Onset Dates Condition Status SNOMED Code Problem Arthritis M19.90 Active 0093071 Problem 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 Active 57991191 Problem Polyneuropathy G62.9 Active 02780696 Problem Other male erectile dysfunction N52.8 Active 026479735 Problem Constipation K59.00 Active 07197305 Problem Type 2 diabetes mellitus with 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 E11.65 Active 289221238 Problem Controlled type 2 diabetes mellitus without complication, without long -term current use of insulin E11.9 Active 669370303 Problem longterm current use of insulin Z79.4 Active 791773591 Problem Neuropathy G62.9 Active 156179472 Problem Obstructive sleep apnea G47.33 Active 30844860 Problem Hypertension, benign I10 Active 48782652 Problem Uncontrolled type 2 diabetes mellitus without complication, without long-term current use of insulin E11.65 Active 063734012 Problem Stress incontinence of urine N39.3 Active 65552469 Problem Fibromyalgia M79.7 Active [id number] ALLERGIES No Information ENCOUNTERS Encounter Location Date Diagnosis [facility] [id number] [place] [address] 88300- 5898 Dec, [facility] [address], [place] [address] 5863 Nov, [facility] [id number] [place] [address] 17646- 8732 Nov, Therapeutic drug monitoring Z51.81 [facility] [address] [place] [address] 62917- 1353 Nov, [facility] [id number] [place] [address] 54141- 3325 Nov, Therapeutic drug monitoring Z51.81 ; Fibromyalgia M79.7 and Controlled type 2 diabetes mellitus without complication, without long-term current use of insulin E11.9 [facility] [id number] [place] [address] 09491- 9064 Nov, Type 2 diabetes mellitus with 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 E11.65 [facility] [id number] [place] [address] 92961- 3711 Nov, [facility] [id number] [place] [address] 54339- 4479 Nov, [facility] [id number] [place] [address] 35727- 3010 Nov, Type 2 diabetes mellitus with 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 E11.65 [facility] [id number] [place] [address] 70101- 6518 Nov, [facility] [address] 26666- 2298 Nov, [facility] [id number] [place] [address] 95528- 3736 Nov, Constipation K59.00 [facility] [id number] [place] [address] 91554- 1035 Oct, Diabetes type 2, controlled E11.9 [facility] [id number] [place] [address] 41412- 5440 Oct, Type 2 diabetes mellitus with 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 E11.65 ; tire bladder maker current use of insulin Z79.4 and Neuropathy G62.9 [facility] [id number] [place] [address] 40466- 7136 Oct, [facility] [id number] [place] [address] 59562- 2724 Oct, [facility] [id number] [place] [address] 62914- 9470 Oct, [facility] [id number] [place] [address] 04999- 5562 Oct, [facility] [address], [place] [address]- 9419 Oct, [facility] [address] [place] [address] 66661- 7779 Oct, [facility] [id number] [place] [address] 97836- 7885 Oct, [facility] [id number] [place] [address] 23553- 9359 Sep, [facility] [id number] [place] [address] 47580- 4673 Sep, Uncontrolled type 2 diabetes mellitus without complication, without long-term current use of insulin E11.65 [facility] [id number] [place] [address] 56665- 4051 Sep, Hypertension, benign I10 ; Fibromyalgia M79.7 ; Controlled type 2 diabetes mellitus without complication, without long-term current use of insulin E11.9 and Uncontrolled type 2 diabetes mellitus without complication, without long-term current use of insulin E11.65 [facility] [id number] [place] [address] 98097- 3825 Sep, [facility] [id number] [place] [address] 82539- 2174 Sep, Uncontrolled type 2 diabetes mellitus without complication, without long-term current use of insulin E11.65 [facility] [address], [place] [address]- 0134 Sep, [facility] [address], [place] [address]- 1120 Sep, [facility] [id number] [place] [address] 44417- 5835 Sep, Uncontrolled type 2 diabetes mellitus without complication, without long-term current use of insulin E11.65 and Fibromyalgia M79.7 [facility] [id number] [place] [address] 74175- 4826 August, [facility] [id number] [place] [address] 66587- 5433 August, [facility] [id number] [place] [address] 21833- 9099 August, [facility] [id number] [place] [address] 18535- 2084 August, Fibromyalgia M79.7 [facility] [id number] [place] [address] 36637- 9518 Jul, Hypertension, benign I10 [facility] [address] 51992- 9220 Jul, Fibromyalgia M79.7 [facility] [id number] [place] [address] 07186- 6030 Jul, [facility] [address] 01631- 9739 Jun, [facility] [id number] [place] [address] 29691- 6338 Jun, Hypertension, benign I10 ; Arthritis M19.90 ; tire bladder maker current use 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 Z79.891 and Uncontrolled type 2 diabetes mellitus without complication, without long-term current use of insulin E11.65 [facility] [id number] [place] [address] 78183 -3880 Jun, Acute nasopharyngitis J00 and BMI 50.0-59.9, adult Z68.43 [facility] [id number] [place] [address] 28753- 9467 Jun, Fibromyalgia M79.7 [facility] [id number] [place] [address] 32200- 1327 May, [facility] [id number] [place] [address] 91212- 4761 May, Fibromyalgia M79.7 [facility] [address], [place] [address] 2546 Apr, Fibromyalgia M79.7 [facility] [address], [place] [address] 2546 Apr, [facility] [address], [place] [address] 2546 Apr, [facility] [id number] [place] [address] 82328 2546 Apr, Arthritis M19.90 [facility] [address] [place] [address] 33145 2546 Apr, Arthritis M19.90 [facility] [address] [place] [address] 29481 2546 Apr, Arthritis M19.90 and Controlled type 2 diabetes mellitus without complication, without long-term current use of insulin E11.9 [facility] [address], [place] [address] 2546 Apr, [facility] [address], [place] [address] 2546 Apr, Fibromyalgia M79.7 [facility] [address], [place] [address] 2546 Mar, [facility] [address], [place] [address] 2546 Mar, [facility] [address], [place] [address] 2546 Mar, Fibromyalgia M79.7 [facility] [address], [place] [address] 2546 Feb, [facility] [address], [place] [address] 2546 Feb, [facility] [id number] [address] 2546 Feb, [facility] [id number] [place] [address] 47775- 7443 Feb, Fibromyalgia M79.7 [facility] [address] 87000- 9474 Feb, Diabetes type 2, uncontrolled E11.65 and Encounter for immunization Z23 [facility] [address] 58718- 4618 Jan, [facility] [address] 47154- 5023 Jan, Fibromyalgia M79.7 [facility] [address] 33033- 2622 Dec, [facility] [address] 20371- 4306 Dec, Fibromyalgia M79.7 [facility] [address] 34046- 0380 Nov, [facility] [id number] [place] [address] 10150- 0352 Nov, [facility] [address] 40864- 5290 Nov, 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 and Polyneuropathy G62.9 [facility] [id number] [place] [address] 72505- 6294 Nov, [facility] [id number] [place] [address] 71823- 1508 Nov, [facility] [id number] [place] [address] 40386- 2575 Oct, Diabetes type 2, uncontrolled E11.65 [facility] [address] 67947- 3486 Oct, Diabetes type 2, uncontrolled E11.65 ; Polyneuropathy G62.9 and Pain in right wrist M25.531 [facility] [id number] [place] [address] 23141- 1466 Oct, [facility] [address], [place] [address]- 0546 Oct, Pain in left shoulder M25.512 [facility] [address] [facility] [id number], [place] [address]- 2766 Sep, [facility] [id number] [place] [address] 60568- 0079 Sep, Pain in left shoulder M25.512 [facility] [address] [facility] [id number], [place] [address]- 8154 Sep, [facility] [id number] [place] [address] 89959- 1545 August, Pain in left shoulder M25.512 [facility] [address], [place] [address]- 7716 Jul, [facility] [address] [address]- 8046 Jul, [facility] [address] [address]- 8902 Jul, Pain in left shoulder M25.512 [facility] [address], [place] [address]- 6726 Jun, [facility] [address], [place] [address]- 3246 Jun, [facility] [address], [place] [address]- 7382 Jun, Diabetes type 2, uncontrolled E11.65 ; Fibromyalgia M79.7 and Arthritis M19.90 [facility] [address] [address]- 9806 Jun, Pain in left shoulder M25.512 [facility] [address], [place] [address]- 7606 May, [facility] [address], [place] [address]- 1978 May, Diabetes type 2, controlled E11.9 [facility] [id number] [place] [address] 65811- 2430 17 May, 2016 [facility] [id number] [place] [address] 76516- 2383 May, Uncontrolled type 2 diabetes mellitus without complication, without long-term current use of insulin E11.65 [facility] [address] [place] [address] 66270- 9983 May, Pain in left shoulder M25.512 [facility] [id number] [place] [address] 80010- 4762 03 May, 2016 Diabetes type 2, controlled E11.9 and Uncontrolled type 2 diabetes mellitus without complication, without long-term current use of insulin E11.65 [facility] [address] [place] [address] 47732- 3500 Apr, [facility] [address] [place] [address] 62388- 3232 Apr, [facility] [id number] [place] [address] 78784- 0762 Mar, [facility] [address], [place] [address]- 4539 Mar, [facility] [id number] [place] [address] 93993- 3059 Mar, [facility] [id number] [place] [address] 21950- 1646 Feb, [facility] [address] [place] [address] [id number] Feb, Dental examination Z01.20 [facility] [address], [place] [address]- 7055 Jan, [facility] [id number] [place] [address] 24139- 7634 14 Dec, 2015 [facility] [address] [id number] [place] [address]- 0106 Dec, [facility] [address] [id number] [place] [address]- 4365 Dec, [facility] [address] [id number] [place] [address]- 7691 Dec, Diabetes type 2, controlled E11.9 [facility] [address] [id number] [place] [address]- 7053 Nov, [facility] [address] [id number] [place] [address]- 7125 Nov, [facility] [address] [id number] [place] [address]- 9225 Nov, [facility] [address] [id number] [place] [address]- 8047 Nov, [facility] [address] [id number] [place] [address]- 8621 Oct, [facility] [address] [id number] [place] [address]- 3986 Oct, [facility] [address] [facility] [id number] [place] [address]- 9253 Oct, [facility] [address] [id number] [place] [address]- 0849 Sep, [facility] [address] [id number] [place] [address]- 3893 Sep, Diabetes type 2, controlled E11.9 [facility] [address] [id number] [place] [address]- 1179 Sep, Diabetes type 2, controlled E11.9 [facility] [address] [id number] [place] [address]- 6092 August, [facility] [id number] [place] [address] 97086- 6657 August, [facility] [address] [place] [address] 63165- 9929 August, Type 2 diabetes mellitus without complication E11.9 and Pain in left shoulder M25.512 [facility] [id number] [address]- 4452 Jul, [facility] [id number] [place] [address] 40450- 3786 Jul, Diabetes type 2, controlled E11.9 and Hypertension, benign I10 [facility] [id number] [place] [address] 18473- 5610 Jun, [facility] [id number] [place] [address] 73055- 9131 Jun, [facility] [id number] [place] [address] 56573- 9985 Jun, Diabetes 250.00 [facility] [id number] [place] [address] 64368- 9934 Jun, [facility] [id number] [place] [address] 85333- 6563 May, Diabetes type 2, uncontrolled E11.65 [facility] [address], [place] [address]- 4519 May, [facility] [address] [place] [address] 11145- 2706 Apr, Type 2 diabetes mellitus without complication E11.9 [facility] [address], [place] [address]- 1609 Apr, Encounter for immunization Z23 [facility] [address], [place] [address]- 6724 Apr, [facility] [address], [place] [address]- 8664 Mar, [facility] [address], [place] [address]- 3374 Mar, [facility] [address], [place] [address]- 3173 Mar, [facility] [address], [place] [address]- 3792 Feb, [facility] [address] [place] [address] 34222- 6349 Jan, [facility] [address], [place] [address]- 2584 Jan, [facility] [id number] [place] [address] 77458- 6966 Jan, [facility] [address], [place] [address]- 3995 Dec, Diabetes 250.00 and COPD (chronic obstructive pulmonary disease) 496 [facility] [address], [place] [address]- 1556 Dec, [facility] [address], [place] [address]- 3236 Dec, [facility] [address], [place] [address]- 8989 Nov, [facility] [address], [place] [address]- 4992 Oct, Diabetes 250.00 [facility] [address], [place] [address]- 8146 Sep, [facility] [address], [place] [address]- 3733 Sep, [facility] [address], [place] [address]- 0903 Sep, [facility] [id number], [place] [address]- 4872 Sep, Diabetes 250.00 [facility] [address] [address]- 1786 Sep, [facility] [address], [place] [address]- 8721 Sep, [facility] [address] [address]- 4386 August, Hypertension, essential, benign 401.1 ; Coronary atherosclerosis of [place] coronary artery 414.01 and Diabetic neuropathy associated with type 2 diabetes mellitus 250.60 [facility] [address] [facility] [id number] [place] [address]- 3994 Jul, [facility] [id number] [place] [address], [place] [address]- 2299 Jul, [facility] [address] [address]- 7226 Jul, [facility] [address], [place] [address]- 1273 Jun, [facility] [address], [place] [address]- 5075 Jun, [facility] [id number] 5187 Jun, [facility] [address], [place] [address]- 1567 Jun, [facility] [address], [place] [address]- 5766 Jun, [facility] [id number] [address]- 8726 May, [facility] [id number] [address]- 8556 May, [facility] [address], [place] [address]- 2546 May, [facility] [address], [place] [address] 879 May, 2014 [facility] [place] [facility] [address] [id number] [place] [address]- 8132 May, 2014 [facility] [place] [facility] [address] [id number] [place] [address]- 2918 May, [facility] [place] [facility] [address] [facility] [id number] [place] [address]- 7142 May, [facility] [place] [facility] [address] [id number] [place] [address]- 3905 Apr, [facility] [place] [facility] [address] [id number] [place] [address]- 1693 Apr, [facility] [place] [facility] [address] [id number] [place] [address]- 6897 Apr, [facility] [place] [facility] [address] [id number] [place] [address]- 1128 Apr, [facility] [place] [facility] [address] [id number] [place] [address]- 7377 Mar, [facility] [place] [facility] [address] [id number] [place] [address]- 3992 Mar, [facility] [place] [facility] [address] [id number] [place] [address]- 0106 Mar, [facility] [place] [facility] [address] [facility] [id number] [place] [address]- 9364 Mar, [facility] [place] [facility] [address] [id number], [place] [address]- 6034 Feb, [facility] [place] [facility] [address] [id number] [place] [address]- 5732 Feb, [facility] [place] [facility] [address] [id number] [place] [address]- 3928 Feb, [facility] [place] [facility] [address] [facility] [id number] [place] [address] Feb, [facility] [place] [facility] [address] [id number] [place] [address] Feb, [facility] [place] [facility] [address] [id number] [place] [address] Feb, [facility] [place] [facility] [address] [id number] [place] [address] Feb, [facility] [place] [facility] [address] [id number] [place] [address] Jan, [facility] [place] [facility] [address] [id number] [place] [address] Jan, [facility] [place] [facility] [address] [id number] [place] [address] Dec, [facility] [place] [facility] [address] [id number] [place] [address] Dec, [facility] [place] [facility] [address] [id number] [place] [address] Dec, [facility] [place] [facility] [address] [id number] [place] [address] Dec, [facility] [place] [facility] [address] [id number] [place] [address] Dec, [facility] [place] [facility] [address] [id number] [place] [address] Dec, [facility] [place] [facility] [address] [id number] [place] [address] Dec, [facility] [place] [facility] [address] [id number] [place] [address] Dec, [facility] [place] [facility] [address] [id number] [place] [address] Nov, [facility] [place] [facility] [address] [id number] [place] [address] Nov, [facility] [place] [facility] [address] [id number] [place] [address] Nov, [facility] [place] [facility] [address] [id number] [place] [address] Nov, [facility] [place] [facility] [address] [id number] [place] [address] Oct, [facility] [place] [facility] [address] [id number] [place] [address] Oct, [facility] [place] [facility] [address] [id number] [place] [address] Oct, [facility] [place] [facility] [address] [id number] [place] [address] Oct, [facility] [place] [facility] [address] [id number] [place] [address] Oct, [facility] [place] [facility] [address] [id number] [place] [address] Oct, [facility] [place] [facility] [address] [id number] [place] [address] Oct, [facility] [place] [facility] [address] [id number] [place] [address] Oct, [facility] [place] [facility] [address] [id number] [place] [address] Sep, [facility] [place] [facility] [address] [id number] [place] [address] Sep, [facility] [place] [facility] [address] [id number] [place] [address] August, [facility] [place] [facility] [address] [id number] [place] [address] August, [facility] [place] [facility] [address] [id number] [place] [address] Jul, [facility] [place] [facility] [address] [id number] [place] [address] Jul, [facility] [place] [facility] [address] [id number], [place] [address] Jul, [facility] [address] [id number] [place] [address] Jul, [facility] [place] [facility] [address] [id number] [place] [address] Jul, [facility] [address] [id number] [place] [address] Jul, [facility] [place] [facility] [address] [id number] [place] [address] Jul, [facility] [address] [id number] [place] [address] Jul, [facility] [place] [facility] [address] [id number] [place] [address] Jun, [facility] [address] [id number] [place] [address] Jun, [facility] [place] [facility] [address] [id number] [place] [address] Jun, [facility] [address] [id number] [place] [address] Jun, [facility] [place] [facility] [address] [id number] [place] [address] May, [facility] [place] [facility] [address] [id number] [place] [address]- [address] May, [facility] [place] [facility] [address] [id number] [place] [address]- [address] Apr, [facility] [place] [facility] [address] [id number] [place] [address]- 7847 Apr, [facility] [place] [facility] [address] [id number] [place] [address]- [address]96 Mar, [facility] [place] [facility] [address] [id number] [place] [address] Mar, [facility] [place] [facility] [address] [id number] [place] [address]- 4716 18 Mar, 2013 [facility] [place] [facility] [address] [id number] [place] [address]- 5[address] 18 Mar, 2013 [facility] [place] [facility] [address] [id number] [place] [address]- 4651 18 Mar, 2013 [facility] [place] [facility] [address] [id number] [place] [address]- 0620 18 Mar, 2013 [facility] [place] [facility] [address] [id number] [place] [address]- [address] Feb, [facility] [place] [facility] [address] [id number] [place] [address]- 7[address] Feb, [facility] [place] [facility] [address] [id number] [place] [address]- 0168 Feb, [facility] [place] [facility] [address] [id number] [place] [address]- 132[address] Feb, [facility] [place] [facility] [address] [id number] [place] [address]- 69[address] 18 Feb, 2013 [facility] [place] [facility] [address] [id number] [place] [address]- 8792 18 Feb, 2013 [facility] [place] [facility] [address] [id number] [place] [address]- [address] 12 Feb, 2013 [facility] [place] [facility] [address] [id number] [place] [address]- 8100 12 Feb, 2013 [facility] [place] [facility] [address] [id number] [place] [address]- 5336 15 Jan, 2013 [facility] [place] [facility] [address] [id number] [place] [address]- [address]27 15 Jan, 2013 [facility] [place] [facility] [address] [id number] [place] [address]- 0976 14 Jan, 2013 [facility] [place] [facility] [address] [id number] [place] [address]- 9824 Jan, [facility] [place] [facility] [address] [id number] [place] [address]- 9570 18 Dec, 2012 [facility] [place] [facility] [address] [id number] [place] [address]- 3191 Dec, [facility] [place] [facility] [address] [id number] [place] [address]- 6278 Dec, [facility] [place] [facility] [address] [id number] [place] [address]- 3[address] Nov, [facility] [place] [facility] [address] [id number] [place] [address]- 1435 Nov, [facility] [place] [facility] [address] [id number] [place] [address]- 6466 Oct, [facility] [place] [facility] [address] [id number] [place] [address]- 0693 Oct, [facility] [place] [facility] [address] [id number], [place] [address] Oct, [facility] [place] [facility] [address] [id number] [place] [address]- 7067 Sep, [facility] [place] [facility] [address] [id number] [place] [address]- 9610 Sep, [facility] [place] [facility] [address] [id number], [place] [address] Sep, [facility] [place] [facility] [address] [id number], [place] [address] Sep, [facility] [place] [facility] [address] [id number] [place] [address]- [address] Sep, [facility] [place] [facility] [address] [id number], [place] [address]- [address] Sep, [facility] [place] [facility] [address] [id number] [place] [address]- 2627 August, [facility] [place] [facility] [address] [id number] [place] [address]- 43[address] August, [facility] [address] [id number] [place] [address] August, [facility] [address] [id number] [place] [address]- 3187 August, [facility] [address] [id number] [place] [address]- 2983 August, [facility] [address] [id number] [place] [address]- 6069 August, [facility] [address] [id number] [place] [address]- 1077 August, [facility] [address] [id number] [place] [address]- 4249 Jul, [facility] [address] [id number] [place] [address]- 4226 Jul, [facility] [address] [id number] [place] [address]- [address]444 Jun, [facility] [address] [id number] [place] [address] 5576 Jun, [facility] [address] [id number] [place] [address]- 4658 May, [facility] [address] [id number] [place] [address]- 7168 May, [facility] [address] [id number] [place] [address]- 2163 Apr, [facility] [address] [id number] [place] [address]- 3686 Mar, [facility] [address] [id number] [place] [address]- 8846 Mar, [facility] [address] [id number] [place] [address] Mar, [facility] [place] [facility] [address] [id number] [place] [address]- 9258 Mar, [facility] [place] [facility] [address] [id number] [place] [address]- 8875 Mar, [facility] [place] [facility] [address] [id number] [place] [address] Mar, [facility] [place] [facility] [address] [id number] [place] [address]- 8175 Feb, [facility] [place] [facility] [address] [id number] [place] [address]- 0126 Feb, [facility] [place] [facility] [address] [id number] [place] [address]- 9334 Feb, [facility] [place] [facility] [address] [facility] [id number] [place] [address]- 9114 Feb, [facility] [place] [facility] [address] [id number], [place] [address]- 7776 Feb, [facility] [place] [facility] [address] [facility] [id number], [place] [address]- 5859 Feb, [facility] [place] [facility] [address] [facility] [id number], [place] [address]- 3546 Feb, [facility] [place] [facility] [address] [facility] [id number], [place] [address]- 9784 Feb, [facility] [place] [facility] [address] [id number], [place] [address]- 1437 Jan, [facility] [place] [facility] [address] [id number], [place] [address]- 7361 Jan, [facility] [place] [facility] [address] [id number], [place] [address]- 2489 Dec, [facility] [place] [facility] [address] [facility] [id number][place] 2619 Dec, [facility] [place] [facility] [address] [id number], [place] [address]- 0480 Dec, [facility] [place] [facility] [address] [id number] [place] [address]- 6380 Dec, [facility] [place] [facility] [address] [id number] [place] [address]- 6846 Dec, [facility] [place] [facility] [address] [id number] [place] [address]- 0515 Nov, [facility] [place] [facility] [address] [id number] [place] [address]- 2666 Oct, [facility] [place] [facility] [address] [id number] [place] [address]- 6866 Oct, [facility] [place] [facility] [address] [id number] [place] [address]- 5271 Sep, [facility] [place] [facility] [address] [facility] [id number] [place] [address]- 2920 Sep, [facility] [place] [facility] [address] [id number] [place] [address]- 7104 Sep, [facility] [place] [facility] [address] [id number] [place] [address]- 2331 Sep, [facility] [place] [facility] [address] [facility] [id number] [place] [address]- 9879 Sep, [facility] [place] [facility] [address] [id number] [place] [address]- 8195 Sep, [facility] [place] [facility] [address] [id number] [place] [address]- 1808 Sep, [facility] [place] [facility] [address] [id number] [place] [address]- 3225 Sep, [facility] [place] [facility] [address] [facility] [id number] [place] [address]- 0721 August, [facility] [place] [facility] [address] [facility] [id number] [place] [address]- 7934 August, [facility] [place] [facility] [address] [id number] [place] [address]- 9464 August, [facility] [address] [id number] [place] [address]- 4615 Jul, [facility] [place] [facility] [address] [id number] [place] [address] 2546 Jul, [facility] [place] [facility] [address] [id number] [place] [address]- 0660 Jun, [facility] [place] [facility] [address] [id number] [place] [address]- 6741 Jun, [facility] [place] [facility] [address] [id number] [place] [address]- 2056 Jun, [facility] [place] [facility] [address] [id number] [place] [address]- 7756 Jun, [facility] [place] [facility] [address] [id number] [place] [address]- 5757 May, [facility] [place] [facility] [address] [id number] [place] [address]- 4309 May, [facility] [place] [facility] [address] [id number] [place] [address]- 6886 Apr, [facility] [place] [facility] [address] [id number] [place] [address]- 1808 Apr, [facility] [place] [facility] [address] [id number] [place] [address]- 2983 Apr, [facility] [place] [facility] [address] [id number] [place] [address]- 2395 14 Mar, 2011 [facility] [place] [facility] [address] [id number] [place] [address]- 1716 09 Mar, 2011 [facility] [place] [facility] [address] [id number] [place] [address]- 2546 07 Mar, 2011 [facility] [place] [facility] [address] [id number] [place] [address]- 2731 Feb, [facility] [place] [facility] [address] [id number] [place] [address]- 6007 Feb, [facility] [place] [facility] [address] [id number] [place] [address]- 8682 Feb, [facility] [place] [facility] [address] [facility] [id number] [place] [address]- 6465 Feb, [facility] [place] [facility] [address] [id number] [place] [address]- 1064 Jan, [facility] [place] [facility] [address] [id number] [place] [address]- 8765 14 Jan, 2011 [facility] [place] [facility] [address] [id number] [place] [address]- 1774 Jan, [facility] [place] [facility] [address] [id number] [place] [address]- 4046 16 Dec, 2010 [facility] [place] [facility] [address] [id number], [place] [address]- 2029 Oct, [facility] [place] [facility] [address] [id number], [place] [address]- 5952 Mar, [facility] [place] [facility] [address] [id number], [place] [address]- 3201 Feb, [facility] [place] [facility] [address] [id number], [place] [address]- 5358 Feb, [facility] [place] [facility] [address] [id number], [place] [address]- 0068 May, [facility] [place] [facility] [address] [id number] [place] [address]- 9410 Apr, [facility] [place] [facility] [address] [facility] [id number], [place] [address]- 2271 Mar, [facility] [place] [facility] [address] [id number], [place] [address]- 7191 30 Jan, 2009 [facility] [place] [facility] [address] [facility] [id number] [place] [address]- 2546 Oct, [facility] [address] [facility] [id number], [place] [address]- 1266 Jul, [facility] [address] [id number], [place] [address] 2546 Mar, [facility] [address] [facility] [id number], [place] [address]- 3476 Feb, [facility] [address] [facility] [id number], [place] [address]- 6545 Jan, IMMUNIZATIONS No Known Immunizations SOCIAL HISTORY Never Assessed REASON FOR VISIT Medication clarification PLAN OF CARE VITAL SIGNS MEDICATIONS Unknown [...]
--- OUTSIDE RECORDS SUMMARY | 2018-07-05 12:32 | XMS REPORT ---
Author Author KATHYA FISCHER Organization [facility] Address [address] [place] [address] Care Team Providers Care Artist Woodblock Name Role Phone KATHYA FISCHER Unavailable PROBLEMS Type Condition ICD9-CM Code HAC08-CX Code Onset Dates Condition Status SNOMED Code Problem Arthritis M19.90 Active 2133786 Problem 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 Active 72210471 Problem Polyneuropathy G62.9 Active 07102369 Problem Other male erectile dysfunction N52.8 Active 309973725 Problem Constipation K59.00 Active 16601224 Problem Type 2 diabetes mellitus with 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 E11.65 Active 983811848 Problem Controlled type 2 diabetes mellitus without complication, without long -term current use of insulin E11.9 Active 210440410 Problem half-way current use of insulin Z79.4 Active 240212228 Problem Neuropathy G62.9 Active 017564049 Problem Obstructive sleep apnea G47.33 Active 69690795 Problem Hypertension, benign I10 Active 71051583 Problem Uncontrolled type 2 diabetes mellitus without complication, without long-term current use of insulin E11.65 Active 396370640 Problem Stress incontinence of urine N39.3 Active 33624043 Problem Fibromyalgia M79.7 Active 704136781 ALLERGIES No Information ENCOUNTERS Encounter Location Date Diagnosis [facility] [id number] [place] [address] 62369- 9292 Dec, [facility] [address], [place] [address] 2297 Nov, [facility] [id number] [place] [address] 65460- 8076 Nov, Therapeutic drug monitoring Z51.81 [facility] [id number] [place] [address] 86852- 0239 Nov, [facility] [id number] [place] [address] 68386- 2646 Nov, Therapeutic drug monitoring Z51.81 ; Fibromyalgia M79.7 and Controlled type 2 diabetes mellitus without complication, without long-term current use of insulin E11.9 [facility] [id number] [place] [address] 51563- 9249 Nov, Type 2 diabetes mellitus with 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 E11.65 [facility] [id number] [place] [address] 60271- 6736 Nov, [facility] [id number] [place] [address] 54065- 9379 Nov, [facility] [id number] [place] [address] 33329- 5004 Nov, Type 2 diabetes mellitus with 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 E11.65 [facility] [id number] [place] [address] 36895- 8000 Nov, [facility] [address] 67805- 7219 Nov, [facility] [id number] [place] [address] 98243- 8274 Nov, Constipation K59.00 [facility] [id number] [place] [address] 21639- 9271 Oct, Diabetes type 2, controlled E11.9 [facility] [id number] [place] [address] 72534- 4485 Oct, Type 2 diabetes mellitus with 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 E11.65 ; 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 and Neuropathy G62.9 [facility] [id number] [place] [address] 95475- 2980 Oct, [facility] [id number] [place] [address] 35238- 1887 Oct, [facility] [id number] [place] [address] 54550- 6183 Oct, [facility] [id number] [place] [address] 32438- 3063 Oct, [facility] [address] [address]- 3489 Oct, [facility] [id number] [place] [address] 66855- 1711 Oct, [facility] [id number] [place] [address] 86369- 8797 Oct, [facility] [id number] [place] [address] 37146- 6465 Sep, [facility] [id number] [place] [address] 54904- 6388 Sep, Uncontrolled type 2 diabetes mellitus without complication, without long-term current use of insulin E11.65 [facility] [id number] [place] [address] 30172- 3548 Sep, Hypertension, benign I10 ; Fibromyalgia M79.7 ; Controlled type 2 diabetes mellitus without complication, without long-term current use of insulin E11.9 and Uncontrolled type 2 diabetes mellitus without complication, without long-term current use of insulin E11.65 [facility] [id number] [place] [address] 75066- 2783 Sep, [facility] [id number] [place] [address] 94055- 7967 Sep, Uncontrolled type 2 diabetes mellitus without complication, without long-term current use of insulin E11.65 [facility] [address], [place] [address]- 8937 Sep, [facility] [address], [place] [address]- 8190 Sep, [facility] [id number] [place] [address] 09431- 4022 Sep, Uncontrolled type 2 diabetes mellitus without complication, without long-term current use of insulin E11.65 and Fibromyalgia M79.7 [facility] [id number] [place] [address] 68444- 7610 August, [facility] [id number] [place] [address] 96501- 7846 August, [facility] [id number] [place] [address] 71371- 3886 August, [facility] [id number] [place] [address] 48377- 8875 August, Fibromyalgia M79.7 [facility] [id number] [place] [address] 79946- 7833 Jul, Hypertension, benign I10 [facility] [address] 41579- 5759 Jul, Fibromyalgia M79.7 [facility] [id number] [place] [address] 81840- 6386 Jul, [facility] [address] 70607- 2737 Jun, [facility] [id number] [place] [address] 95424- 8022 Jun, Hypertension, benign I10 ; Arthritis M19.90 ; 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 and Uncontrolled type 2 diabetes mellitus without complication, without long-term current use of insulin E11.65 [facility] [id number] [place] [address] 11126 -1026 Jun, Acute nasopharyngitis J00 and BMI 50.0-59.9, adult Z68.43 [facility] [id number] [place] [address] 04394- 2146 Jun, Fibromyalgia M79.7 [facility] [id number] [place] [address] 05858- 4465 May, [facility] [id number] [place] [address] 25065- 7480 May, Fibromyalgia M79.7 [facility] [address], [place] [address] 2546 Apr, Fibromyalgia M79.7 [facility] [address], [place] [address] 2546 Apr, [facility] [address], [place] [address] 2546 Apr, [facility] [id number] [place] [address] 54464 2546 Apr, Arthritis M19.90 [facility] [id number] [place] [address] 77115 2546 Apr, Arthritis M19.90 [facility] [address] [place] [address] 96902 2546 Apr, Arthritis M19.90 and Controlled type 2 diabetes mellitus without complication, without long-term current use of insulin E11.9 [facility] [address], [place] [address] 2546 Apr, [facility] [address], [place] [address] 2546 Apr, Fibromyalgia M79.7 [facility] [address], [place] [address] 2546 Mar, [facility] [address], [place] [address] 2546 Mar, [facility] [address], [place] [address] 2546 Mar, Fibromyalgia M79.7 [facility] [address], [place] [address] 2546 Feb, [facility] [address], [place] [address] 2546 Feb, [facility] [id number], [place] [address] 2546 Feb, [facility] [id number] [place] [address] 30653- 3843 Feb, Fibromyalgia M79.7 [facility] [address] 45510- 4788 Feb, Diabetes type 2, uncontrolled E11.65 and Encounter for immunization Z23 [facility] [address] 57089- 4680 Jan, [facility] [address] 06752- 1110 Jan, Fibromyalgia M79.7 [facility] [address] 94125- 1079 Dec, [facility] [address] 60366- 9843 Dec, Fibromyalgia M79.7 [facility] [address] 23895- 5718 Nov, [facility] [id number] [place] [address] 42404- 4029 Nov, [facility] [address] 38757- 9080 Nov, 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 and Polyneuropathy G62.9 [facility] [id number] [place] [address] 06109- 3270 Nov, [facility] [id number] [place] [address] 70111- 3242 Nov, [facility] [id number] [place] [address] 03337- 6163 Oct, Diabetes type 2, uncontrolled E11.65 [facility] [address] 97759- 2555 Oct, Diabetes type 2, uncontrolled E11.65 ; Polyneuropathy G62.9 and Pain in right wrist M25.531 [facility] [id number] [place] [address] 08443- 9496 Oct, [facility] [address], [place] [address]- 9956 Oct, Pain in left shoulder M25.512 [facility] [address] [facility] [id number] [address]- 9946 Sep, [facility] [id number] [place] [address] 94080- 3582 Sep, Pain in left shoulder M25.512 [facility] [address] [facility] [id number], [place] [address]- 9535 Sep, [facility] [id number] [place] [address] 75396- 2757 August, Pain in left shoulder M25.512 [facility] [address], [place] [address]- 6596 Jul, [facility] [id number] [address]- 2711 Jul, [facility] [id number] [address]- 9822 Jul, Pain in left shoulder M25.512 [facility] [address], [place] [address]- 9546 Jun, [facility] [address], [place] [address]- 9626 Jun, [facility] [address], [place] [address]- 6426 Jun, Diabetes type 2, uncontrolled E11.65 ; Fibromyalgia M79.7 and Arthritis M19.90 [facility] [id number] [address]- 1576 Jun, Pain in left shoulder M25.512 [facility] [address], [place] [address]- 2446 May, [facility] [address], [place] [address]- 9913 May, Diabetes type 2, controlled E11.9 [facility] [id number] [place] [address] 45075- 1967 17 May, 2016 [facility] [id number] [place] [address] 10754- 1625 May, Uncontrolled type 2 diabetes mellitus without complication, without long-term current use of insulin E11.65 [facility] [address] [place] [address] 15234- 8751 May, Pain in left shoulder M25.512 [facility] [id number] [place] [address] 37609- 5732 03 May, 2016 Diabetes type 2, controlled E11.9 and Uncontrolled type 2 diabetes mellitus without complication, without long-term current use of insulin E11.65 [facility] [id number] [place] [address] 59345- 8256 Apr, [facility] [id number] [place] [address] 97044- 2079 Apr, [facility] [id number] [place] [address] 49958- 8594 Mar, [facility] [address], [place] [address]- 9678 Mar, [facility] [id number] [place] [address] 96229- 5475 Mar, [facility] [id number] [place] [address] 58604- 7381 Feb, [facility] [address] [place] [address] [id number] Feb, Dental examination Z01.20 [facility] [address], [place] [address]- 7739 Jan, [facility] [id number] [place] [address] 83007- 1852 14 Dec, 2015 [facility] [address] [id number] [place] [address]- 0768 Dec, [facility] [address] [id number] [place] [address]- 2676 Dec, [facility] [address] [id number] [place] [address]- 1274 Dec, Diabetes type 2, controlled E11.9 [facility] [address] [id number] [place] [address]- 0690 Nov, [facility] [address] [id number] [place] [address]- 5060 Nov, [facility] [address] [id number] [place] [address]- 2666 Nov, [facility] [address] [id number] [place] [address]- 1348 Nov, [facility] [address] [id number] [place] [address]- 8133 Oct, [facility] [address] [id number] [place] [address]- 7875 Oct, [facility] [address] [facility] [id number] [place] [address]- 6521 Oct, [facility] [address] [id number] [place] [address]- 8344 Sep, [facility] [address] [id number] [place] [address]- 8894 Sep, Diabetes type 2, controlled E11.9 [facility] [address] [id number] [place] [address]- 6611 Sep, Diabetes type 2, controlled E11.9 [facility] [address] [id number] [place] [address]- 6432 August, [facility] [id number] [place] [address] 42656- 6149 August, [facility] [address] [place] [address] 26804- 8283 August, Type 2 diabetes mellitus without complication E11.9 and Pain in left shoulder M25.512 [facility] [id number] [place] [address]- 3485 Jul, [facility] [id number] [place] [address] 02107- 8769 Jul, Diabetes type 2, controlled E11.9 and Hypertension, benign I10 [facility] [id number] [place] [address] 94612- 7823 Jun, [facility] [id number] [place] [address] 54252- 9145 Jun, [facility] [id number] [place] [address] 67849- 6551 Jun, Diabetes 250.00 [facility] [id number] [place] [address] 31411- 1674 Jun, [facility] [id number] [place] [address] 19768- 5944 May, Diabetes type 2, uncontrolled E11.65 [facility] [address] [address]- 6473 May, [facility] [address] [place] [address] 92363- 4770 Apr, Type 2 diabetes mellitus without complication E11.9 [facility] [address], [place] [address]- 6757 Apr, Encounter for immunization Z23 [facility] [address], [place] [address]- 9484 Apr, [facility] [address], [place] [address]- 1800 Mar, [facility] [address], [place] [address]- 0164 Mar, [facility] [address] [address]- 6332 Mar, [facility] [address], [place] [address]- 8929 Feb, [facility] [id number] [place] [address] 24057- 9227 Jan, [facility] [address], [place] [address]- 8220 Jan, [facility] [id number] [place] [address] 75448- 6905 Jan, [facility] [address] [address]- 8089 Dec, Diabetes 250.00 and COPD (chronic obstructive pulmonary disease) 496 [facility] [address], [place] [address]- 9534 Dec, [facility] [address], [place] [address]- 2597 Dec, [facility] [address], [place] [address]- 1414 Nov, [facility] [address], [place] [address]- 2704 Oct, Diabetes 250.00 [facility] [address], [place] [address]- 0352 Sep, [facility] [address], [place] [address]- 0981 Sep, [facility] [address], [place] [address]- 5570 Sep, [facility] [id number], [place] [address]- 0060 Sep, Diabetes 250.00 [facility] [address] [place] [address]- 1726 Sep, [facility] [address], [place] [address]- 3774 Sep, [facility] [address] [place] [address]- 7556 August, Hypertension, essential, benign 401.1 ; Coronary atherosclerosis of platinum coronary artery 414.01 and Diabetic neuropathy associated with type 2 diabetes mellitus 250.60 [facility] [address] [facility] [id number] [place] [address]- 2580 Jul, [facility] [id number] [place] [address], [place] [address]- 5803 Jul, [facility] [address] [place] [address]- 8286 Jul, [facility] [address], [place] [address]- 2181 Jun, [facility] [address], [place] [address]- 5646 Jun, [facility] [address]- 8622 Jun, [facility] [address] [address]- 3973 Jun, [facility] [address], [place] [address]- 3036 Jun, [facility] [id number], [place] [address]- 1506 May, [facility] [address] [place] [address]- 9746 May, [facility] [address], [place] [address]- 2546 May, [facility] [address], [place] [address] 0901 May, 2014 [facility] [place] [facility] [address] [id number] [place] [address]- 2144 May, 2014 [facility] [place] [facility] [address] [id number] [place] [address]- 2993 May, [facility] [place] [facility] [address] [facility] [id number] [place] [address]- 2508 May, [facility] [place] [facility] [address] [id number] [place] [address]- 5658 Apr, [facility] [place] [facility] [address] [id number] [place] [address]- 5598 Apr, [facility] [place] [facility] [address] [id number] [place] [address]- 6820 Apr, [facility] [place] [facility] [address] [id number] [place] [address]- 7979 Apr, [facility] [place] [facility] [address] [id number] [place] [address]- 2086 Mar, [facility] [place] [facility] [address] [id number] [place] [address]- 6041 Mar, [facility] [place] [facility] [address] [id number] [place] [address]- 1546 Mar, [facility] [place] [facility] [address] [facility] [id number] [place] [address]- 1602 Mar, [facility] [place] [facility] [address] [id number], [place] [address] Feb, [facility] [place] [facility] [address] [id number] [place] [address] Feb, [facility] [place] [facility] [address] [id number] [place] [address] Feb, [facility] [place] [facility] [address] [facility] [id number] [place] [address] Feb, [facility] [place] [facility] [address] [id number] [place] [address] Feb, [facility] [place] [facility] [address] [id number] [place] [address] Feb, [facility] [place] [facility] [address] [id number] [place] [address] Feb, [facility] [place] [facility] [address] [id number] [place] [address] Jan, [facility] [place] [facility] [address] [id number] [place] [address] Jan, [facility] [place] [facility] [address] [id number] [place] [address] Dec, [facility] [place] [facility] [address] [id number] [place] [address] Dec, [facility] [place] [facility] [address] [id number] [place] [address] Dec, [facility] [place] [facility] [address] [id number] [place] [address] Dec, [facility] [place] [facility] [address] [id number] [place] [address] Dec, [facility] [place] [facility] [address] [id number] [place] [address] Dec, [facility] [place] [facility] [address] [id number] [place] [address] Dec, [facility] [place] [facility] [address] [id number] [place] [address] Dec, [facility] [place] [facility] [address] [id number] [place] [address] Nov, [facility] [place] [facility] [address] [id number] [place] [address] Nov, [facility] [place] [facility] [address] [id number] [place] [address] Nov, [facility] [place] [facility] [address] [id number] [place] [address] Nov, [facility] [place] [facility] [address] [id number] [place] [address] Oct, [facility] [place] [facility] [address] [id number] [place] [address] Oct, [facility] [place] [facility] [address] [id number] [place] [address] Oct, [facility] [place] [facility] [address] [id number] [place] [address] Oct, [facility] [place] [facility] [address] [id number] [place] [address] Oct, [facility] [place] [facility] [address] [id number] [place] [address] Oct, [facility] [place] [facility] [address] [id number] [place] [address] Oct, [facility] [place] [facility] [address] [id number] [place] [address] Oct, [facility] [place] [facility] [address] [id number] [place] [address] Sep, [facility] [place] [facility] [address] [id number] [place] [address] Sep, [facility] [place] [facility] [address] [id number] [place] [address] August, [facility] [place] [facility] [address] [id number] [place] [address] August, [facility] [place] [facility] [address] [id number] [place] [address] Jul, [facility] [place] [facility] [address] [id number] [place] [address] Jul, [facility] [place] [facility] [address] [id number], [place] [address] Jul, [facility] [address] [id number] [place] [address] Jul, [facility] [place] [facility] [address] [id number] [place] [address] Jul, [facility] [address] [id number] [place] [address] Jul, [facility] [place] [facility] [address] [id number] [place] [address] Jul, [facility] [address] [id number] [place] [address] Jul, [facility] [place] [facility] [address] [id number] [place] [address] Jun, [facility] [address] [id number] [place] [address] Jun, [facility] [place] [facility] [address] [id number] [place] [address] Jun, [facility] [address] [id number] [place] [address] Jun, [facility] [place] [facility] [address] [id number] [place] [address] May, [facility] [place] [facility] [address] [id number] [place] [address] May, [facility] [place] [facility] [address] [id number] [place] [address] Apr, [facility] [place] [facility] [address] [id number] [place] [address] Apr, [facility] [place] [facility] [address] [id number] [place] [address] Mar, [facility] [place] [facility] [address] [id number] [place] [address] 20[address] Mar, [facility] [place] [facility] [address] [id number] [place] [address]48 18 Mar, 2013 [facility] [place] [facility] [address] [id number] [place] [address] 0[address] 18 Mar, 2013 [facility] [place] [facility] [address] [id number] [place] [address] 7[address] 18 Mar, 2013 [facility] [place] [facility] [address] [id number] [place] [address] 0911 18 Mar, 2013 [facility] [place] [facility] [address] [id number] [place] [address] Feb, [facility] [place] [facility] [address] [id number] [place] [address] Feb, [facility] [place] [facility] [address] [id number] [place] [address] Feb, [facility] [place] [facility] [address] [id number] [place] [address]704 Feb, [facility] [place] [facility] [address] [id number] [place] [address]28 18 Feb, 2013 [facility] [place] [facility] [address] [id number] [place] [address] 4[address] 18 Feb, 2013 [facility] [place] [facility] [address] [id number] [place] [address] 4890 12 Feb, 2013 [facility] [place] [facility] [address] [id number] [place] [address] 7914 12 Feb, 2013 [facility] [place] [facility] [address] [id number] [place] [address] 15 Jan, 2013 [facility] [place] [facility] [address] [id number] [place] [address] 48[address] 15 Jan, 2013 [facility] [place] [facility] [address] [id number] [place] [address]- 0468 14 Jan, 2013 [facility] [place] [facility] [address] [id number] [place] [address] Jan, [facility] [place] [facility] [address] [id number] [place] [address] 5694 18 Dec, 2012 [facility] [place] [facility] [address] [id number] [place] [address] 9[address] Dec, [facility] [place] [facility] [address] [id number] [place] [address]876 Dec, [facility] [place] [facility] [address] [id number] [place] [address]006 Nov, [facility] [place] [facility] [address] [id number] [place] [address] Nov, [facility] [place] [facility] [address] [id number] [place] [address] 6341 Oct, [facility] [place] [facility] [address] [id number] [place] [address] 0647 Oct, [facility] [place] [facility] [address] [id number], [place] [address] Oct, [facility] [place] [facility] [address] [id number] [place] [address] 9428 Sep, [facility] [place] [facility] [address] [id number] [place] [address] Sep, [facility] [place] [facility] [address] [id number], [place] [address] Sep, [facility] [place] [facility] [address] [id number], [place] [address] Sep, [facility] [place] [facility] [address] [id number] [place] [address] 75[address] Sep, [facility] [place] [facility] [address] [id number], [place] [address] 7[address] Sep, [facility] [place] [facility] [address] [id number] [place] [address]298 August, [facility] [place] [facility] [address] [id number] [place] [address] 6[address] August, [facility] [address] [id number] [place] [address] August, [facility] [address] [id number] [place] [address]44 August, [facility] [address] [id number] [place] [address] 7817 August, [facility] [address] [id number] [place] [address] 495[address] August, [facility] [address] [id number] [place] [address]- 4274 August, [facility] [address] [id number] [place] [address] 0144 Jul, [facility] [address] [id number] [place] [address]- 7881 Jul, [facility] [address] [id number] [place] [address] 0411 Jun, [facility] [address] [id number] [place] [address] 7799 Jun, [facility] [address] [id number] [place] [address]- 6884 May, [facility] [address] [id number] [place] [address] 1193 May, [facility] [address] [id number] [place] [address] 8761 Apr, [facility] [address] [id number] [place] [address] 4831 Mar, [facility] [address] [id number] [place] [address] 1741 Mar, [facility] [address] [id number] [place] [address] Mar, [facility] [place] [facility] [address] [id number] [place] [address] 7711 Mar, [facility] [place] [facility] [address] [id number] [place] [address]- 1462 Mar, [facility] [place] [facility] [address] [id number] [place] [address] Mar, [facility] [place] [facility] [address] [id number] [place] [address] 8689 Feb, [facility] [place] [facility] [address] [id number] [place] [address]- 2158 Feb, [facility] [place] [facility] [address] [id number] [place] [address]- 0895 Feb, [facility] [place] [facility] [address] [facility] [id number] [place] [address]- 4148 Feb, [facility] [place] [facility] [address] [id number], [place] [address]- 0103 Feb, [facility] [place] [facility] [address] [facility] [id number], [place] [address]- 2750 Feb, [facility] [place] [facility] [address] [facility] [id number], [place] [address]- 1640 Feb, [facility] [place] [facility] [address] [facility] [id number], [place] [address]- 5[address] Feb, [facility] [place] [facility] [address] [id number], [place] [address] Jan, [facility] [place] [facility] [address] [id number], [place] [address]- 0177 Jan, [facility] [place] [facility] [address] [id number], [place] [address]- 1598 Dec, [facility] [place] [facility] [address] [facility] [id number][place] [address] Dec, [facility] [place] [facility] [address] [id number], [place] [address]- 8489 Dec, [facility] [place] [facility] [address] [id number] [place] [address]- 1996 Dec, [facility] [place] [facility] [address] [id number] [place] [address]- 8206 Dec, [facility] [place] [facility] [address] [id number] [place] [address]- 1490 Nov, [facility] [place] [facility] [address] [id number] [place] [address]- 8745 Oct, [facility] [place] [facility] [address] [id number] [place] [address]- 9661 Oct, [facility] [place] [facility] [address] [id number] [place] [address]- 0883 Sep, [facility] [place] [facility] [address] [facility] [id number] [place] [address]- 8694 Sep, [facility] [place] [facility] [address] [id number] [place] [address]- 5357 Sep, [facility] [place] [facility] [address] [id number] [place] [address]- 0714 Sep, [facility] [place] [facility] [address] [facility] [id number] [place] [address]- 3546 Sep, [facility] [place] [facility] [address] [id number] [place] [address]- 0253 Sep, [facility] [place] [facility] [address] [id number] [place] [address]- 3160 Sep, [facility] [place] [facility] [address] [id number] [place] [address]- 1014 Sep, [facility] [place] [facility] [address] [facility] [id number] [place] [address]- 9059 August, [facility] [place] [facility] [address] [facility] [id number] [place] [address]- 7328 August, [facility] [place] [facility] [address] [id number] [place] [address]- 8141 August, [facility] [address] [id number] [place] [address]- 6439 Jul, [facility] [place] [facility] [address] [id number] [place] [address] 2546 Jul, [facility] [place] [facility] [address] [id number] [place] [address] 1945 Jun, [facility] [place] [facility] [address] [id number] [place] [address]- 1124 Jun, [facility] [place] [facility] [address] [id number] [place] [address]- 5196 Jun, [facility] [place] [facility] [address] [id number] [place] [address]- 2280 Jun, [facility] [place] [facility] [address] [id number] [place] [address]- 4117 May, [facility] [place] [facility] [address] [id number] [place] [address]- 6483 May, [facility] [place] [facility] [address] [id number] [place] [address]- 5278 Apr, [facility] [place] [facility] [address] [id number] [place] [address]- 6720 Apr, [facility] [place] [facility] [address] [id number] [place] [address]- 1031 Apr, [facility] [place] [facility] [address] [id number] [place] [address]- 8874 14 Mar, 2011 [facility] [place] [facility] [address] [id number] [place] [address]- 5376 09 Mar, 2011 [facility] [place] [facility] [address] [id number] [place] [address]- 2546 07 Mar, 2011 [facility] [place] [facility] [address] [id number] [place] [address]- 8851 Feb, [facility] [place] [facility] [address] [id number] [place] [address]- 2167 Feb, [facility] [place] [facility] [address] [id number] [place] [address]- 9833 Feb, [facility] [place] [facility] [address] [facility] [id number] [place] [address]- 2817 Feb, [facility] [place] [facility] [address] [id number] [place] [address]- 8917 Jan, [facility] [place] [facility] [address] [id number] [place] [address]- 3212 14 Jan, 2011 [facility] [place] [facility] [address] [id number] [place] [address]- 9731 Jan, [facility] [place] [facility] [address] [id number] [place] [address]- 0844 16 Dec, 2010 [facility] [place] [facility] [address] [id number], [place] [address]- 1984 Oct, [facility] [place] [facility] [address] [id number], [place] [address]- 5988 Mar, [facility] [place] [facility] [address] [id number], [place] [address]- 2362 Feb, [facility] [place] [facility] [address] [id number], [place] [address]- 5116 Feb, [facility] [place] [facility] [address] [id number], [place] [address]- 1730 May, [facility] [place] [facility] [address] [id number] [place] [address]- 0358 Apr, [facility] [place] [facility] [address] [facility] [id number], [place] [address]- 6435 Mar, [facility] [place] [facility] [address] [id number], [place] [address]- 2256 30 Jan, 2009 [facility] [place] [facility] [address] [facility] [id number] [place] [address]- 2546 Oct, [facility] [address] [facility] [id number], [place] [address]- 2546 Jul, [facility] [address] [id number], [place] [address]- 2546 Mar, [facility] [address] [facility] [id number], [place] [address]- 2546 Feb, [facility] [address] [facility] [id number], [place] [address]- 2546 Jan, IMMUNIZATIONS No Known Immunizations SOCIAL HISTORY Never Assessed REASON FOR VISIT medication request PLAN OF CARE VITAL SIGNS MEDICATIONS Medication Instructions Dosage Frequency Start Date End Date Duration Status Cialis 20 mg Orally Once a day 1 tablet 24h Oct, Active RESULTS No Results PROCEDURES No [...]
--- OUTSIDE RECORDS SUMMARY | 2018-07-05 12:33 | XMS REPORT ---
Author Author KATHYA FISCHER Organization [facility] Address [address] [place] [address] Care Team Providers Care Research Project Manager Name Role Phone KATHYA FISCHER Unavailable PROBLEMS Type Condition ICD9-CM Code JKV85-GC Code Onset Dates Condition Status SNOMED Code Problem Arthritis M19.90 Active 0390643 Problem 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 Active 91200161 Problem Polyneuropathy G62.9 Active 85923714 Problem Other male erectile dysfunction N52.8 Active 789533300 Problem Constipation K59.00 Active 68045935 Problem Type 2 diabetes mellitus with 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 E11.65 Active 975199621 Problem Controlled type 2 diabetes mellitus without complication, without long -term current use of insulin E11.9 Active 287128583 Problem custodial current use of insulin Z79.4 Active 170537383 Problem Neuropathy G62.9 Active 524629316 Problem Obstructive sleep apnea G47.33 Active 86030957 Problem Hypertension, benign I10 Active 46929087 Problem Uncontrolled type 2 diabetes mellitus without complication, without long-term current use of insulin E11.65 Active 893498645 Problem Stress incontinence of urine N39.3 Active 73280952 Problem Fibromyalgia M79.7 Active [id number] ALLERGIES No Information ENCOUNTERS Encounter Location Date Diagnosis [facility] [id number] [place] [address] 02626- 9054 Dec, [facility] [address] [address] 6702 Nov, [facility] [id number] [place] [address] 37191- 2416 Nov, Therapeutic drug monitoring Z51.81 [facility] [id number] [place] [address] 68236- 9374 Nov, [facility] [id number] [place] [address] 34612- 4259 Nov, Therapeutic drug monitoring Z51.81 ; Fibromyalgia M79.7 and Controlled type 2 diabetes mellitus without complication, without long-term current use of insulin E11.9 [facility] [id number] [place] [address] 06670- 6037 Nov, Type 2 diabetes mellitus with 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 E11.65 [facility] [id number] [place] [address] 51086- 5952 Nov, [facility] [id number] [place] [address] 70712- 5248 Nov, [facility] [id number] [place] [address] 79120- 1555 Nov, Type 2 diabetes mellitus with 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 E11.65 [facility] [id number] [place] [address] 21922- 2773 Nov, [facility] [address] 23712- 6061 Nov, [facility] [id number] [place] [address] 77192- 4348 Nov, Constipation K59.00 [facility] [id number] [place] [address] 73771- 2291 Oct, Diabetes type 2, controlled E11.9 [facility] [id number] [place] [address] 48138- 9819 Oct, Type 2 diabetes mellitus with 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 E11.65 ; exterminator termite current use of insulin Z79.4 and Neuropathy G62.9 [facility] [id number] [place] [address] 23543- 7626 Oct, [facility] [id number] [place] [address] 92293- 0880 Oct, [facility] [id number] [place] [address] 97437- 8168 Oct, [facility] [id number] [place] [address] 39188- 4244 Oct, [facility] [address] [address]- 2057 Oct, [facility] [id number] [place] [address] 95741- 4717 Oct, [facility] [id number] [place] [address] 45224- 4776 Oct, [facility] [id number] [place] [address] 10513- 2708 Sep, [facility] [id number] [place] [address] 71774- 7418 Sep, Uncontrolled type 2 diabetes mellitus without complication, without long-term current use of insulin E11.65 [facility] [id number] [place] [address] 53933- 5941 Sep, Hypertension, benign I10 ; Fibromyalgia M79.7 ; Controlled type 2 diabetes mellitus without complication, without long-term current use of insulin E11.9 and Uncontrolled type 2 diabetes mellitus without complication, without long-term current use of insulin E11.65 [facility] [id number] [place] [address] 05686- 5786 Sep, [facility] [id number] [place] [address] 11594- 9068 Sep, Uncontrolled type 2 diabetes mellitus without complication, without long-term current use of insulin E11.65 [facility] [address] [address]- 9735 Sep, [facility] [address] [address]- 6223 Sep, [facility] [id number] [place] [address] 68103- 6434 Sep, Uncontrolled type 2 diabetes mellitus without complication, without long-term current use of insulin E11.65 and Fibromyalgia M79.7 [facility] [id number] [place] [address] 40376- 9972 August, [facility] [id number] [place] [address] 47567- 0310 August, [facility] [id number] [place] [address] 42928- 8168 August, [facility] [id number] [place] [address] 34055- 3094 August, Fibromyalgia M79.7 [facility] [id number] [place] [address] 86177- 8204 Jul, Hypertension, benign I10 [facility] [address] 19305- 1071 Jul, Fibromyalgia M79.7 [facility] [id number] [place] [address] 58966- 9282 Jul, [facility] [address] 69571- 2834 Jun, [facility] [id number] [place] [address] 03596- 1468 Jun, Hypertension, benign I10 ; Arthritis M19.90 ; exterminator termite current use 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 Z79.891 and Uncontrolled type 2 diabetes mellitus without complication, without long-term current use of insulin E11.65 [facility] [id number] [place] [address] 37347 -2977 Jun, Acute nasopharyngitis J00 and BMI 50.0-59.9, adult Z68.43 [facility] [id number] [place] [address] 90968- 9933 Jun, Fibromyalgia M79.7 [facility] [id number] [place] [address] 86296- 6714 May, [facility] [id number] [place] [address] 22637- 9944 May, Fibromyalgia M79.7 [facility] [address] [address] 2546 Apr, Fibromyalgia M79.7 [facility] [address] [address] 2546 Apr, [facility] [address] [address] 2546 Apr, [facility] [id number] [place] [address] 31472 2546 Apr, Arthritis M19.90 [facility] [id number] [place] [address] 28423 2546 Apr, Arthritis M19.90 [facility] [id number] [place] [address] 20803 2546 Apr, Arthritis M19.90 and Controlled type 2 diabetes mellitus without complication, without long-term current use of insulin E11.9 [facility] [address] [address] 2546 Apr, [facility] [address] [address] 2546 Apr, Fibromyalgia M79.7 [facility] [address] [address] 2546 Mar, [facility] [address] [address] 2546 Mar, [facility] [address] [address] 2546 Mar, Fibromyalgia M79.7 [facility] [address] [address] 2546 Feb, [facility] [address] [address] 2546 Feb, [facility] [id number] [address] 2546 Feb, [facility] [id number] [place] [address] 01633- 4383 Feb, Fibromyalgia M79.7 [facility] [address] 99220- 0434 Feb, Diabetes type 2, uncontrolled E11.65 and Encounter for immunization Z23 [facility] [address] 75186- 4925 Jan, [facility] [address] 58335- 1442 Jan, Fibromyalgia M79.7 [facility] [address] 76079- 2429 Dec, [facility] [address] 75332- 9026 Dec, Fibromyalgia M79.7 [facility] [address] 01227- 9427 Nov, [facility] [id number] [place] [address] 69651- 5419 Nov, [facility] [address] 91401- 5883 Nov, 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 and Polyneuropathy G62.9 [facility] [id number] [place] [address] 49652- 4318 Nov, [facility] [id number] [place] [address] 04577- 6620 Nov, [facility] [id number] [place] [address] 31215- 5581 Oct, Diabetes type 2, uncontrolled E11.65 [facility] [address] 63097- 4328 Oct, Diabetes type 2, uncontrolled E11.65 ; Polyneuropathy G62.9 and Pain in right wrist M25.531 [facility] [id number] [place] [address] 60776- 4526 Oct, [facility] [address] [address]- 0886 Oct, Pain in left shoulder M25.512 [facility] [address] [facility] [id number] [address]- 8506 Sep, [facility] [id number] [place] [address] 07196- 7178 Sep, Pain in left shoulder M25.512 [facility] [address] [facility] [id number] [address]- 6121 Sep, [facility] [id number] [place] [address] 44777- 1803 August, Pain in left shoulder M25.512 [facility] [address] [address]- 1476 Jul, [facility] [address] [address]- 0664 Jul, [facility] [address] [address]- 7009 Jul, Pain in left shoulder M25.512 [facility] [address] [address]- 9726 Jun, [facility] [address] [address]- 1546 Jun, [facility] [address] [address]- 4338 Jun, Diabetes type 2, uncontrolled E11.65 ; Fibromyalgia M79.7 and Arthritis M19.90 [facility] [address] [address]- 7666 Jun, Pain in left shoulder M25.512 [facility] [address] [address]- 2126 May, [facility] [address] [address]- 6035 May, Diabetes type 2, controlled E11.9 [facility] [id number] [place] [address] 56219- 0110 17 May, 2016 [facility] [id number] [place] [address] 70289- 4260 May, Uncontrolled type 2 diabetes mellitus without complication, without long-term current use of insulin E11.65 [facility] [address] [place] [address] 45298- 0911 May, Pain in left shoulder M25.512 [facility] [id number] [place] [address] 74623- 7512 03 May, 2016 Diabetes type 2, controlled E11.9 and Uncontrolled type 2 diabetes mellitus without complication, without long-term current use of insulin E11.65 [facility] [id number] [place] [address] 65479- 0110 Apr, [facility] [id number] [place] [address] 96524- 9772 Apr, [facility] [id number] [place] [address] 69683- 5121 Mar, [facility] [address] [address]- 8989 Mar, [facility] [id number] [place] [address] 04638- 1872 Mar, [facility] [id number] [place] [address] 35725- 6466 Feb, [facility] [id number] [place] [address] [id number] Feb, Dental examination Z01.20 [facility] [address] [address]- 6905 Jan, [facility] [id number] [place] [address] 50220- 1229 14 Dec, 2015 [facility] [address] [id number] [place] [address]- 0210 Dec, [facility] [address] [id number] [place] [address]- 0460 Dec, [facility] [address] [id number] [place] [address]- 3181 Dec, Diabetes type 2, controlled E11.9 [facility] [address] [id number] [place] [address]- 2363 Nov, [facility] [address] [id number] [place] [address]- 9879 Nov, [facility] [address] [id number] [place] [address]- 8231 Nov, [facility] [address] [id number] [place] [address]- 0322 Nov, [facility] [address] [id number] [place] [address]- 6072 Oct, [facility] [address] [id number] [place] [address]- 6762 Oct, [facility] [address] [facility] [id number] [place] [address]- 6993 Oct, [facility] [address] [id number] [place] [address]- 9638 Sep, [facility] [address] [id number] [place] [address]- 0436 Sep, Diabetes type 2, controlled E11.9 [facility] [address] [id number] [place] [address]- 4306 Sep, Diabetes type 2, controlled E11.9 [facility] [address] [id number] [place] [address]- 0446 August, [facility] [id number] [place] [address] 90269- 2415 August, [facility] [id number] [place] [address] 19445- 6300 August, Type 2 diabetes mellitus without complication E11.9 and Pain in left shoulder M25.512 [facility] [id number] [place] [address]- 3140 Jul, [facility] [id number] [place] [address] 22114- 4143 Jul, Diabetes type 2, controlled E11.9 and Hypertension, benign I10 [facility] [id number] [place] [address] 12909- 4718 Jun, [facility] [id number] [place] [address] 36911- 3085 Jun, [facility] [id number] [place] [address] 59257- 6529 Jun, Diabetes 250.00 [facility] [id number] [place] [address] 24903- 8170 Jun, [facility] [id number] [place] [address] 04600- 6197 May, Diabetes type 2, uncontrolled E11.65 [facility] [address] [address]- 9867 May, [facility] [id number] [place] [address] 37356- 6678 Apr, Type 2 diabetes mellitus without complication E11.9 [facility] [address] [address]- 1196 Apr, Encounter for immunization Z23 [facility] [address] [address]- 7126 Apr, [facility] [address] [address]- 0730 Mar, [facility] [address] [address]- 7202 Mar, [facility] [address] [address]- 4430 Mar, [facility] [address] [address]- 8657 Feb, [facility] [id number] [place] [address] 36709- 4878 Jan, [facility] [address] [address]- 2988 Jan, [facility] [id number] [place] [address] 50323- 9181 Jan, [facility] [address] [address]- 5692 Dec, Diabetes 250.00 and COPD (chronic obstructive pulmonary disease) 496 [facility] [address] [address]- 7724 Dec, [facility] [address] [address]- 8236 Dec, [facility] [address] [address]- 7322 Nov, [facility] [address] [address]- 2592 Oct, Diabetes 250.00 [facility] [address] [address]- 6957 Sep, [facility] [address] [address]- 7338 Sep, [facility] [address] [address]- 5384 Sep, [facility] [id number] [address]- 5073 Sep, Diabetes 250.00 [facility] [address] [place] [address]- 7626 Sep, [facility] [address] [address]- 5683 Sep, [facility] [address] [place] [address]- 3586 August, Hypertension, essential, benign 401.1 ; Coronary atherosclerosis of [place] coronary artery 414.01 and Diabetic neuropathy associated with type 2 diabetes mellitus 250.60 [facility] [address] [facility] [id number] [place] [address]- 7961 Jul, [facility] [id number] [place] [address], [place] [address]- 2862 Jul, [facility] [address] [place] [address]- 5406 Jul, [facility] [address] [address]- 5544 Jun, [facility] [address] [address]- 2943 Jun, [facility] [address]- 2303 Jun, [facility] [address] [address]- 2876 Jun, [facility] [address] [address]- 9416 Jun, [facility] [id number] [address]- 5056 May, [facility] [address] [place] [address]- 5286 May, [facility] [address] [address]- 2546 May, [facility] [address] [address] 7839 May, 2014 [facility] [place] [facility] [address] [id number] [place] [address]- 3814 May, 2014 [facility] [place] [facility] [address] [id number] [place] [address]- 2021 May, [facility] [place] [facility] [address] [facility] [id number] [place] [address]- 2244 May, [facility] [place] [facility] [address] [id number] [place] [address]- 0084 Apr, [facility] [place] [facility] [address] [id number] [place] [address]- 9306 Apr, [facility] [place] [facility] [address] [id number] [place] [address]- 8861 Apr, [facility] [place] [facility] [address] [id number] [place] [address]- 6878 Apr, [facility] [place] [facility] [address] [id number] [place] [address]- 2207 Mar, [facility] [place] [facility] [address] [id number] [place] [address]- 6506 Mar, [facility] [place] [facility] [address] [id number] [place] [address]- 2893 Mar, [facility] [place] [facility] [address] [facility] [id number] [place] [address]- 1396 Mar, [facility] [place] [facility] [address] [id number] [address]- 3738 Feb, [facility] [place] [facility] [address] [id number] [place] [address]- 3603 Feb, [facility] [place] [facility] [address] [id number] [place] [address]- 9878 Feb, [facility] [place] [facility] [address] [facility] [id number] [place] [address]- 3794 Feb, [facility] [place] [facility] [address] [id number] [place] [address]- 1296 Feb, [facility] [place] [facility] [address] [id number] [place] [address]- 9881 Feb, [facility] [place] [facility] [address] [id number] [place] [address] Feb, [facility] [place] [facility] [address] [id number] [place] [address] Jan, [facility] [place] [facility] [address] [id number] [place] [address] Jan, [facility] [place] [facility] [address] [id number] [place] [address] Dec, [facility] [place] [facility] [address] [id number] [place] [address] Dec, [facility] [place] [facility] [address] [id number] [place] [address] Dec, [facility] [place] [facility] [address] [id number] [place] [address] Dec, [facility] [place] [facility] [address] [id number] [place] [address] Dec, [facility] [place] [facility] [address] [id number] [place] [address] Dec, [facility] [place] [facility] [address] [id number] [place] [address] Dec, [facility] [place] [facility] [address] [id number] [place] [address] Dec, [facility] [place] [facility] [address] [id number] [place] [address] Nov, [facility] [place] [facility] [address] [id number] [place] [address] Nov, [facility] [place] [facility] [address] [id number] [place] [address] Nov, [facility] [place] [facility] [address] [id number] [place] [address]- [address] Nov, [facility] [place] [facility] [address] [id number] [place] [address] Oct, [facility] [place] [facility] [address] [id number] [place] [address] Oct, [facility] [place] [facility] [address] [id number] [place] [address] Oct, [facility] [place] [facility] [address] [id number] [place] [address] Oct, [facility] [place] [facility] [address] [id number] [place] [address] Oct, [facility] [place] [facility] [address] [id number] [place] [address] Oct, [facility] [place] [facility] [address] [id number] [place] [address] Oct, [facility] [place] [facility] [address] [id number] [place] [address] Oct, [facility] [place] [facility] [address] [id number] [place] [address] Sep, [facility] [place] [facility] [address] [id number] [place] [address] Sep, [facility] [place] [facility] [address] [id number] [place] [address] August, [facility] [place] [facility] [address] [id number] [place] [address] August, [facility] [place] [facility] [address] [id number] [place] [address] Jul, [facility] [place] [facility] [address] [id number] [place] [address] Jul, [facility] [place] [facility] [address] [id number] [address] Jul, [facility] [address] [id number] [place] [address] Jul, [facility] [place] [facility] [address] [id number] [place] [address] Jul, [facility] [address] [id number] [place] [address] Jul, [facility] [place] [facility] [address] [id number] [place] [address] Jul, [facility] [facility] [address] [id number] [place] [address] Jul, [facility] [place] [facility] [address] [id number] [place] [address] Jun, [facility] [address] [id number] [place] [address] Jun, [facility] [place] [facility] [address] [id number] [place] [address] Jun, [facility] [address] [id number] [place] [address] Jun, [facility] [place] [facility] [address] [id number] [place] [address] May, [facility] [place] [facility] [address] [id number] [place] [address] May, [facility] [place] [facility] [address] [id number] [place] [address] Apr, [facility] [place] [facility] [address] [id number] [place] [address] Apr, [facility] [place] [facility] [address] [id number] [place] [address] Mar, [facility] [place] [facility] [address] [id number] [place] [address] 98[address] Mar, [facility] [place] [facility] [address] [id number] [place] [address] 18 Mar, 2013 [facility] [place] [facility] [address] [id number] [place] [address] 18 Mar, 2013 [facility] [place] [facility] [address] [id number] [place] [address] 1248 18 Mar, 2013 [facility] [place] [facility] [address] [id number] [place] [address] 9[address] 18 Mar, 2013 [facility] [place] [facility] [address] [id number] [place] [address] 230[address] Feb, [facility] [place] [facility] [address] [id number] [place] [address]- [address]756 Feb, [facility] [place] [facility] [address] [id number] [place] [address]- [address] Feb, [facility] [place] [facility] [address] [id number] [place] [address]- [address] Feb, [facility] [place] [facility] [address] [id number] [place] [address]- 6[address] 18 Feb, 2013 [facility] [place] [facility] [address] [id number] [place] [address]- 6148 18 Feb, 2013 [facility] [place] [facility] [address] [id number] [place] [address]- 2531 12 Feb, 2013 [facility] [place] [facility] [address] [id number] [place] [address]- 3773 12 Feb, 2013 [facility] [place] [facility] [address] [id number] [place] [address]- 3335 15 Jan, 2013 [facility] [place] [facility] [address] [id number] [place] [address]- 0344 15 Jan, 2013 [facility] [place] [facility] [address] [id number] [place] [address]- 3508 14 Jan, 2013 [facility] [place] [facility] [address] [id number] [place] [address]- [address]26 Jan, [facility] [place] [facility] [address] [id number] [place] [address]- 1380 18 Dec, 2012 [facility] [place] [facility] [address] [id number] [place] [address]- [address]272 Dec, [facility] [place] [facility] [address] [id number] [place] [address]- 9528 Dec, [facility] [place] [facility] [address] [id number] [place] [address]658 Nov, [facility] [place] [facility] [address] [id number] [place] [address]- 480[address] Nov, [facility] [place] [facility] [address] [id number] [place] [address]- 1608 Oct, [facility] [place] [facility] [address] [id number] [place] [address]385 Oct, [facility] [place] [facility] [address] [id number] [address] Oct, [facility] [place] [facility] [address] [id number] [place] [address]- 0063 Sep, [facility] [place] [facility] [address] [id number] [place] [address]- 2011 Sep, [facility] [place] [facility] [address] [id number] [place] [address] Sep, [facility] [place] [facility] [address] [id number] [place] [address] Sep, [facility] [place] [facility] [address] [id number] [place] [address]- 9876 Sep, [facility] [place] [facility] [address] [id number] [place] [address] Sep, [facility] [place] [facility] [address] [id number] [place] [address] August, [facility] [place] [facility] [address] [id number] [place] [address]- [address]281 August, [facility] [address] [id number] [place] [address] August, [facility] [address] [id number] [place] [address]117 August, [facility] [address] [id number] [place] [address]- 7684 August, [facility] [address] [id number] [place] [address] 1339 August, [facility] [address] [id number] [place] [address]- 9657 August, [facility] [address] [id number] [place] [address]- [address]378 Jul, [facility] [address] [id number] [place] [address]- 239[address] Jul, [facility] [address] [id number] [place] [address]- 6737 Jun, [facility] [address] [id number] [place] [address]- 0681 Jun, [facility] [address] [id number] [place] [address]- 0255 May, [facility] [address] [id number] [place] [address]- 7191 May, [facility] [address] [id number] [place] [address]- 4503 Apr, [facility] [address] [id number] [place] [address] 1816 Mar, [facility] [address] [id number] [place] [address]- 8385 Mar, [facility] [address] [id number] [place] [address] Mar, [facility] [place] [facility] [address] [id number] [place] [address]- 9827 Mar, [facility] [place] [facility] [address] [id number] [place] [address] 5022 Mar, [facility] [place] [facility] [address] [id number] [place] [address] Mar, [facility] [place] [facility] [address] [id number] [place] [address]- 2702 Feb, [facility] [place] [facility] [address] [id number] [place] [address]- 3123 Feb, [facility] [place] [facility] [address] [id number] [place] [address]- 9425 Feb, [facility] [place] [facility] [address] [facility] [id number] [place] [address]- 9695 Feb, [facility] [place] [facility] [address] [id number] [place] [address] 8941 Feb, [facility] [place] [facility] [address] [facility] [id number] [place] [address]- 6475 Feb, [facility] [place] [facility] [address] [facility] [id number] [place] [address]- [address]001 Feb, [facility] [place] [facility] [address] [facility] [id number] [place] [address]- 7465 Feb, [facility] [place] [facility] [address] [id number] [place] [address]- 3293 Jan, [facility] [place] [facility] [address] [id number] [place] [address]- 8237 Jan, [facility] [place] [facility] [address] [id number] [place] [address]- 5604 Dec, [facility] [place] [facility] [address] [facility] [id number] [place] [address] Dec, [facility] [place] [facility] [address] [id number] [place] [address]- 8323 Dec, [facility] [place] [facility] [address] [id number] [place] [address]- 7560 Dec, [facility] [place] [facility] [address] [id number] [place] [address]- 5796 Dec, [facility] [place] [facility] [address] [id number] [place] [address]- 9213 Nov, [facility] [place] [facility] [address] [id number] [place] [address]- 6858 Oct, [facility] [place] [facility] [address] [id number] [place] [address]- 3691 Oct, [facility] [place] [facility] [address] [id number] [place] [address]- 0783 Sep, [facility] [place] [facility] [address] [facility] [id number] [place] [address]- 4578 Sep, [facility] [place] [facility] [address] [id number] [place] [address]- 8476 Sep, [facility] [place] [facility] [address] [id number] [place] [address]- 4745 Sep, [facility] [place] [facility] [address] [facility] [id number] [place] [address]- 3538 Sep, [facility] [place] [facility] [address] [id number] [place] [address]- 8127 Sep, [facility] [place] [facility] [address] [id number] [place] [address]- 6719 Sep, [facility] [place] [facility] [address] [id number] [place] [address]- 0372 Sep, [facility] [place] [facility] [address] [facility] [id number] [place] [address]- 5987 August, [facility] [place] [facility] [address] [facility] [id number] [place] [address]- 9169 August, [facility] [place] [facility] [address] [id number] [place] [address]- 0784 August, [facility] [address] [id number] [place] [address]- 5075 Jul, [facility] [place] [facility] [address] [id number] [place] [address] 2546 Jul, [facility] [place] [facility] [address] [id number] [place] [address]- 8390 Jun, [facility] [place] [facility] [address] [id number] [place] [address]- 1864 Jun, [facility] [place] [facility] [address] [id number] [place] [address]- 2646 Jun, [facility] [place] [facility] [address] [id number] [place] [address]- 0024 Jun, [facility] [place] [facility] [address] [id number] [place] [address]- 2593 May, [facility] [place] [facility] [address] [id number] [place] [address]- 3196 May, [facility] [place] [facility] [address] [id number] [place] [address]- 1085 Apr, [facility] [place] [facility] [address] [id number] [place] [address]- 9052 Apr, [facility] [place] [facility] [address] [id number] [place] [address]- 8788 Apr, [facility] [place] [facility] [address] [id number] [place] [address]- 1897 14 Mar, 2011 [facility] [place] [facility] [address] [id number] [place] [address]- 7776 09 Mar, 2011 [facility] [place] [facility] [address] [id number] [place] [address]- 2546 07 Mar, 2011 [facility] [place] [facility] [address] [id number] [place] [address]- 9691 Feb, [facility] [place] [facility] [address] [id number] [place] [address]- 0078 Feb, [facility] [place] [facility] [address] [id number] [place] [address]- 0856 Feb, [facility] [place] [facility] [address] [facility] [id number] [place] [address]- 8910 Feb, [facility] [place] [facility] [address] [id number] [place] [address]- 4860 Jan, [facility] [place] [facility] [address] [id number] [place] [address]- 2035 14 Jan, 2011 [facility] [place] [facility] [address] [id number] [place] [address]- 6441 Jan, [facility] [place] [facility] [address] [id number] [place] [address]- 7807 16 Dec, 2010 [facility] [place] [facility] [address] [id number] [place] [address]- 5671 Oct, [facility] [place] [facility] [address] [id number] [place] [address]- 2562 Mar, [facility] [place] [facility] [address] [id number] [place] [address]- 4273 Feb, [facility] [place] [facility] [address] [id number] [place] [address]- 4677 Feb, [facility] [place] [facility] [address] [id number] [place] [address]- 3933 May, [facility] [place] [facility] [address] [id number] [place] [address]- 0572 Apr, [facility] [place] [facility] [address] [facility] [id number] [place] [address]- 5183 Mar, [facility] [place] [facility] [address] [id number] [place] [address]- 0438 30 Jan, 2009 [facility] [place] [facility] [address] [facility] [id number] [place] [address]- 2546 Oct, [facility] [address] [facility] [id number] [place] [address]- 2546 Jul, [facility] [address] [id number] [place] [address]- 2546 Mar, [facility] [address] [facility] [id number] [place] [address]- 2546 Feb, [facility] [address] [facility] [id number] [place] [address]- 2546 Jan, IMMUNIZATIONS No Known Immunizations SOCIAL HISTORY Never Assessed REASON FOR VISIT med refill PLAN OF CARE VITAL SIGNS MEDICATIONS Medication Instructions Dosage Frequency Start Date End Date Duration Status Duloxetine HCl 60 MG Orally Once a day 1 capsule 24h 30 days Active RESULTS No Results PROCEDURES [...]
--- OUTSIDE RECORDS SUMMARY | 2018-07-05 12:33 | XMS REPORT ---
Author Author KATHYA FISCHER Organization [facility] Address [address] [place] [address] Care Team Providers Care Staff Research Scientist Name Role Phone KATHYA FISCHER Unavailable PROBLEMS Type Condition ICD9-CM Code ZOV96-HA Code Onset Dates Condition Status SNOMED Code Problem Arthritis M19.90 Active 8203733 Problem 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 Active 53101097 Problem Polyneuropathy G62.9 Active 40057245 Problem Other male erectile dysfunction N52.8 Active 959293538 Problem Constipation K59.00 Active 05019713 Problem Type 2 diabetes mellitus with 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 E11.65 Active 226579724 Problem Controlled type 2 diabetes mellitus without complication, without long -term current use of insulin E11.9 Active 252666913 Problem jail current use of insulin Z79.4 Active 441077624 Problem Neuropathy G62.9 Active 154423604 Problem Obstructive sleep apnea G47.33 Active 70095158 Problem Hypertension, benign I10 Active 73092779 Problem Uncontrolled type 2 diabetes mellitus without complication, without long-term current use of insulin E11.65 Active 027009701 Problem Stress incontinence of urine N39.3 Active 23476745 Problem Fibromyalgia M79.7 Active 713305245 ALLERGIES No Information ENCOUNTERS Encounter Location Date Diagnosis [facility] [id number] [place] [address] 83237- 3936 Dec, [facility] [address] [address] 7713 Nov, [facility] [id number] [place] [address] 32611- 6823 Nov, Therapeutic drug monitoring Z51.81 [facility] [id number] [place] [address] 24940- 2582 Nov, [facility] [id number] [place] [address] 62712- 1804 Nov, Therapeutic drug monitoring Z51.81 ; Fibromyalgia M79.7 and Controlled type 2 diabetes mellitus without complication, without long-term current use of insulin E11.9 [facility] [id number] [place] [address] 74667- 4377 Nov, Type 2 diabetes mellitus with 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 E11.65 [facility] [id number] [place] [address] 44001- 2255 Nov, [facility] [id number] [place] [address] 65459- 7588 Nov, [facility] [id number] [place] [address] 50514- 3926 Nov, Type 2 diabetes mellitus with 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 E11.65 [facility] [id number] [place] [address] 21461- 2321 Nov, [facility] [address] 91956- 6109 Nov, [facility] [id number] [place] [address] 51400- 0835 Nov, Constipation K59.00 [facility] [id number] [place] [address] 11484- 8210 Oct, Diabetes type 2, controlled E11.9 [facility] [id number] [place] [address] 36604- 7917 Oct, Type 2 diabetes mellitus with 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 E11.65 ; 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 and Neuropathy G62.9 [facility] [id number] [place] [address] 52944- 2731 Oct, [facility] [id number] [place] [address] 68014- 0810 Oct, [facility] [id number] [place] [address] 84765- 2771 Oct, [facility] [id number] [place] [address] 92567- 4194 Oct, [facility] [address] [address]- 8639 Oct, [facility] [id number] [place] [address] 00906- 9075 Oct, [facility] [id number] [place] [address] 60005- 0670 Oct, [facility] [id number] [place] [address] 17337- 8996 Sep, [place] [facility] [id number] [place] [address] 00090- 9466 Sep, Uncontrolled type 2 diabetes mellitus without complication, without long-term current use of insulin E11.65 [facility] [id number] [place] [address] 66018- 4413 Sep, Hypertension, benign I10 ; Fibromyalgia M79.7 ; Controlled type 2 diabetes mellitus without complication, without long-term current use of insulin E11.9 and Uncontrolled type 2 diabetes mellitus without complication, without long-term current use of insulin E11.65 [facility] [id number] [place] [address] 13648- 6989 Sep, [facility] [facility] [id number] [place] [address] 13012- 6885 Sep, Uncontrolled type 2 diabetes mellitus without complication, without long-term current use of insulin E11.65 [facility] [facility] [address] [address]- 3340 Sep, [place] [facility] [address] [address]- 6166 Sep, [facility] [id number] [place] [address] 95008- 4675 Sep, Uncontrolled type 2 diabetes mellitus without complication, without long-term current use of insulin E11.65 and Fibromyalgia M79.7 [facility] [id number] [place] [address] 07264- 7081 August, [facility] [id number] [place] [address] 56872- 3375 August, [facility] [id number] [place] [address] 84305- 5240 August, [facility] [id number] [place] [address] 81204- 3046 August, Fibromyalgia M79.7 [facility] [id number] [place] [address] 05969- 2551 Jul, Hypertension, benign I10 [facility] [address] 57275- 2186 Jul, Fibromyalgia M79.7 [facility] [id number] [place] [address] 54379- 7989 Jul, [facility] [address] 96895- 9931 Jun, [facility] [id number] [place] [address] 22899- 7686 Jun, Hypertension, benign I10 ; Arthritis M19.90 ; 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 and Uncontrolled type 2 diabetes mellitus without complication, without long-term current use of insulin E11.65 [facility] [id number] [place] [address] 37353 -3902 Jun, Acute nasopharyngitis J00 and BMI 50.0-59.9, adult Z68.43 [facility] [id number] [place] [address] 60993- 7933 Jun, Fibromyalgia M79.7 [facility] [id number] [place] [address] 54640- 6519 May, [facility] [id number] [place] [address] 25698- 3294 May, Fibromyalgia M79.7 [facility] [address], [place] [address] 2546 Apr, Fibromyalgia M79.7 [facility] [address], [place] [address] 2546 Apr, [facility] [address] [address] 2546 Apr, [facility] [id number] [place] [address] 62058 2546 Apr, Arthritis M19.90 [facility] [address] [place] [address] 31146 2546 Apr, Arthritis M19.90 [facility] [address] [place] [address] 27863 2546 Apr, Arthritis M19.90 and Controlled type 2 diabetes mellitus without complication, without long-term current use of insulin E11.9 [facility] [address] [address] 2546 Apr, [facility] [address], [place] [address] 2546 Apr, Fibromyalgia M79.7 [facility] [address], [place] [address] 2546 Mar, [facility] [address], [place] [address] 2546 Mar, [facility] [address], [place] [address] 2546 Mar, Fibromyalgia M79.7 [facility] [address], [place] [address] 2546 Feb, [facility] [address], [place] [address] 2546 Feb, [facility] [id number] [address] 2546 Feb, [facility] [id number] [place] [address] 29247- 2482 Feb, Fibromyalgia M79.7 [facility] [address] 86068- 5635 Feb, Diabetes type 2, uncontrolled E11.65 and Encounter for immunization Z23 [facility] [address] 01684- 6767 Jan, [facility] [address] 03730- 9479 Jan, Fibromyalgia M79.7 [facility] [address] 11596- 0347 Dec, [facility] [address] 82882- 7818 Dec, Fibromyalgia M79.7 [facility] [address] 78995- 2534 Nov, [facility] [id number] [place] [address] 27835- 0890 Nov, [facility] [address] 23078- 0015 Nov, 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 and Polyneuropathy G62.9 [facility] [id number] [place] [address] 61035- 9873 Nov, [facility] [id number] [place] [address] 54787- 4141 Nov, [facility] [id number] [place] [address] 02801- 3280 Oct, Diabetes type 2, uncontrolled E11.65 [facility] [address] 40243- 0039 Oct, Diabetes type 2, uncontrolled E11.65 ; Polyneuropathy G62.9 and Pain in right wrist M25.531 [facility] [id number] [place] [address] 38072- 9066 Oct, [facility] [address] [address]- 8816 Oct, Pain in left shoulder M25.512 [facility] [address] [facility] [id number] [address]- 0306 Sep, [facility] [id number] [place] [address] 96052- 2465 Sep, Pain in left shoulder M25.512 [facility] [address] [facility] [id number], [place] [address]- 7601 Sep, [facility] [id number] [place] [address] 23641- 7915 August, Pain in left shoulder M25.512 [facility] [address] [address]- 8276 Jul, [facility] [id number] [address]- 5688 Jul, [facility] [id number] [address]- 4557 Jul, Pain in left shoulder M25.512 [facility] [address] [address]- 6216 Jun, [facility] [address] [address]- 8196 Jun, [facility] [address] [address]- 3174 Jun, Diabetes type 2, uncontrolled E11.65 ; Fibromyalgia M79.7 and Arthritis M19.90 [facility] [id number] [address]- 9276 Jun, Pain in left shoulder M25.512 [facility] [address], [place] [address]- 5586 May, [facility] [address], [place] [address]- 5201 May, Diabetes type 2, controlled E11.9 [facility] [id number] [place] [address] 79149- 0603 17 May, 2016 [facility] [id number] [place] [address] 82247- 9668 May, Uncontrolled type 2 diabetes mellitus without complication, without long-term current use of insulin E11.65 [facility] [address] [place] [address] 27928- 5532 May, Pain in left shoulder M25.512 [facility] [id number] [place] [address] 77340- 5098 03 May, 2016 Diabetes type 2, controlled E11.9 and Uncontrolled type 2 diabetes mellitus without complication, without long-term current use of insulin E11.65 [facility] [address] [place] [address] 53304- 7199 Apr, [facility] [address] [place] [address] 83412- 3827 Apr, [facility] [id number] [place] [address] 34840- 1306 Mar, [facility] [address], [place] [address]- 1102 Mar, [facility] [address] [place] [address] 40228- 5708 Mar, [facility] [id number] [place] [address] 54731- 0870 Feb, [facility] [address] [place] [address] [id number] Feb, Dental examination Z01.20 [facility] [address], [place] [address]- 6124 Jan, [facility] [id number] [place] [address] 04248- 3329 14 Dec, 2015 [facility] [address] [id number] [place] [address]- 1991 Dec, [facility] [address] [id number] [place] [address]- 8795 Dec, [facility] [address] [id number] [place] [address]- 9247 Dec, Diabetes type 2, controlled E11.9 [facility] [address] [id number] [place] [address]- 7497 Nov, [facility] [address] [id number] [place] [address]- 4487 Nov, [facility] [address] [id number] [place] [address]- 3716 Nov, [facility] [address] [id number] [place] [address]- 1244 Nov, [facility] [address] [id number] [place] [address]- 6975 Oct, [facility] [address] [id number] [place] [address]- 7057 Oct, [facility] [address] [facility] [id number] [place] [address]- 0863 Oct, [facility] [address] [id number] [place] [address]- 7549 Sep, [facility] [address] [id number] [place] [address]- 0220 Sep, Diabetes type 2, controlled E11.9 [facility] [address] [id number] [place] [address]- 2172 Sep, Diabetes type 2, controlled E11.9 [facility] [address] [id number] [place] [address]- 5626 August, [facility] [id number] [place] [address] 00577- 7614 August, [facility] [id number] [place] [address] 88494- 2879 August, Type 2 diabetes mellitus without complication E11.9 and Pain in left shoulder M25.512 [facility] [id number] [place] [address]- 9762 Jul, [facility] [id number] [place] [address] 91042- 6447 Jul, Diabetes type 2, controlled E11.9 and Hypertension, benign I10 [facility] [id number] [place] [address] 84464- 2705 Jun, [facility] [id number] [place] [address] 10811- 8983 Jun, [facility] [id number] [place] [address] 82047- 3969 Jun, Diabetes 250.00 [facility] [id number] [place] [address] 04127- 4365 Jun, [facility] [id number] [place] [address] 37741- 3993 May, Diabetes type 2, uncontrolled E11.65 [facility] [address] [address]- 4104 May, [facility] [address] [place] [address] 20999- 9660 Apr, Type 2 diabetes mellitus without complication E11.9 [facility] [address] [address]- 4072 Apr, Encounter for immunization Z23 [facility] [address], [place] [address]- 4603 Apr, [facility] [address], [place] [address]- 4571 Mar, [facility] [address], [place] [address]- 2941 Mar, [facility] [address], [place] [address]- 6369 Mar, [facility] [address], [place] [address]- 2189 Feb, [facility] [address] [place] [address] 60658- 5746 Jan, [facility] [address] [address]- 2879 Jan, [facility] [id number] [place] [address] 74906- 1209 Jan, [facility] [address] [address]- 2760 Dec, Diabetes 250.00 and COPD (chronic obstructive pulmonary disease) 496 [facility] [address], [place] [address]- 4679 Dec, [facility] [address] [address]- 6569 Dec, [facility] [address], [place] [address]- 4319 Nov, [facility] [address], [place] [address]- 1930 Oct, Diabetes 250.00 [facility] [address], [place] [address]- 7207 Sep, [facility] [address], [place] [address]- 3128 Sep, [facility] [address], [place] [address]- 6348 Sep, [facility] [id number] [address]- 7231 Sep, Diabetes 250.00 [facility] [address] [place] [address]- 8006 Sep, [facility] [address] [address]- 3164 Sep, [facility] [address] [place] [address]- 8686 August, Hypertension, essential, benign 401.1 ; Coronary atherosclerosis of [place] coronary artery 414.01 and Diabetic neuropathy associated with type 2 diabetes mellitus 250.60 [facility] [address] [facility] [id number] [place] [address]- 6288 Jul, [facility] [id number] [place] [address], [place] [address]- 6457 Jul, [facility] [address] [place] [address]- 6766 Jul, [facility] [address] [address]- 1969 Jun, [facility] [address], [place] [address]- 1901 Jun, [facility] [address] 6663 Jun, [facility] [address], [place] [address]- 8615 Jun, [facility] [address], [place] [address]- 6396 Jun, [facility] [id number] [address]- 2906 May, [facility] [address] [place] [address]- 6276 May, [facility] [address], [place] [address]- 2546 May, [facility] [address], [place] [address] 4928 May, 2014 [facility] [place] [facility] [address] [id number] [place] [address]- 9391 May, 2014 [facility] [place] [facility] [address] [id number] [place] [address]- 7012 May, [facility] [place] [facility] [address] [facility] [id number] [place] [address]- 0143 May, [facility] [place] [facility] [address] [id number] [place] [address]- 1835 Apr, [facility] [place] [facility] [address] [id number] [place] [address]- 5885 Apr, [facility] [place] [facility] [address] [id number] [place] [address]- 4255 Apr, [facility] [place] [facility] [address] [id number] [place] [address]- 0252 Apr, [facility] [place] [facility] [address] [id number] [place] [address]- 1075 Mar, [facility] [place] [facility] [address] [id number] [place] [address]- 2828 Mar, [facility] [place] [facility] [address] [id number] [place] [address]- 3289 Mar, [facility] [place] [facility] [address] [facility] [id number] [place] [address]- 0695 Mar, [facility] [place] [facility] [address] [id number][place] [address]- 5528 Feb, [facility] [place] [facility] [address] [id number] [place] [address]- 0301 Feb, [facility] [place] [facility] [address] [id number] [place] [address]- 3960 Feb, [facility] [place] [facility] [address] [facility] [id number] [place] [address]- 5874 Feb, [facility] [place] [facility] [address] [id number] [place] [address]- 6120 Feb, [facility] [place] [facility] [address] [id number] [place] [address]- 1381 Feb, [facility] [place] [facility] [address] [id number] [place] [address]- 2895 Feb, [facility] [place] [facility] [address] [id number] [place] [address]- 7647 Jan, [facility] [place] [facility] [address] [id number] [place] [address]- 7581 Jan, [facility] [place] [facility] [address] [id number] [place] [address]- 2343 Dec, [facility] [place] [facility] [address] [id number] [place] [address]- 6844 Dec, [facility] [place] [facility] [address] [id number] [place] [address]- 9862 Dec, [facility] [place] [facility] [address] [id number] [place] [address] Dec, [facility] [place] [facility] [address] [id number] [place] [address] Dec, [facility] [place] [facility] [address] [id number] [place] [address] Dec, [facility] [place] [facility] [address] [id number] [place] [address] Dec, [facility] [place] [facility] [address] [id number] [place] [address] Dec, [facility] [place] [facility] [address] [id number] [place] [address] Nov, [facility] [place] [facility] [address] [id number] [place] [address] Nov, [facility] [place] [facility] [address] [id number] [place] [address] Nov, [facility] [place] [facility] [address] [id number] [place] [address] Nov, [facility] [place] [facility] [address] [id number] [place] [address] Oct, [facility] [place] [facility] [address] [id number] [place] [address] Oct, [facility] [place] [facility] [address] [id number] [place] [address] Oct, [facility] [place] [facility] [address] [id number] [place] [address] Oct, [facility] [place] [facility] [address] [id number] [place] [address] Oct, [facility] [place] [facility] [address] [id number] [place] [address] Oct, [facility] [place] [facility] [address] [id number] [place] [address] Oct, [facility] [place] [facility] [address] [id number] [place] [address] Oct, [facility] [place] [facility] [address] [id number] [place] [address] Sep, [facility] [place] [facility] [address] [id number] [place] [address] Sep, [facility] [place] [facility] [address] [id number] [place] [address] August, [facility] [place] [facility] [address] [id number] [place] [address] August, [facility] [place] [facility] [address] [id number] [place] [address] Jul, [facility] [facility] [address] [id number] [place] [address] Jul, [facility] [address] [id number], [place] [address] Jul, [facility] [address] [id number] [place] [address] Jul, [facility] [place] [facility] [address] [id number] [place] [address] Jul, [facility] [address] [id number] [place] [address] Jul, [facility] [address] [id number] [place] [address] 5259 Jul, [facility] [address] [id number] [place] [address] Jul, [facility] [address] [id number] [place] [address] Jun, [facility] [address] [id number] [place] [address]- 4315 Jun, [facility] [address] [id number] [place] [address]- 0060 Jun, [facility] [address] [id number] [place] [address] Jun, [facility] [address] [id number] [place] [address]- 8676 May, [facility] [address] [id number] [place] [address]- 6412 May, [facility] [address] [id number] [place] [address]- 1660 Apr, [facility] [address] [id number] [place] [address]- 1995 Apr, [facility] [address] [id number] [place] [address] 8498 Mar, [facility] [address] [id number] [place] [address]- 4580 Mar, [facility] [address] [id number] [place] [address]- 7684 18 Mar, 2013 [facility] [address] [id number] [place] [address]- 0988 18 Mar, 2013 [facility] [address] [id number] [place] [address]- 8556 18 Mar, 2013 [facility] [address] [id number] [place] [address]- 2150 18 Mar, 2013 [facility] [address] [id number] [place] [address]- 0502 Feb, [facility] [address] [id number] [place] [address]- 8670 Feb, [facility] [address] [id number] [place] [address]- 0749 Feb, [facility] [address] [id number] [place] [address]- 1197 Feb, [facility] [address] [id number] [place] [address]- 1651 18 Feb, 2013 [facility] [address] [id number] [place] [address]- 6975 18 Feb, 2013 [facility] [address] [id number] [place] [address]- 5960 12 Feb, 2013 [facility] [address] [id number] [place] [address]- 2367 12 Feb, 2013 [facility] [address] [id number] [place] [address]- 2984 15 Jan, 2013 [facility] [address] [id number] [place] [address]- 1216 15 Jan, 2013 [facility] [address] [id number] [place] [address]- 5503 14 Jan, 2013 [facility] [address] [id number] [place] [address]- 9849 Jan, [facility] [address] [id number] [place] [address]- 7572 18 Dec, 2012 [facility] [address] [id number] [place] [address]- 8177 Dec, [facility] [address] [id number] [place] [address]- 8112 Dec, [facility] [address] [id number] [place] [address]- 5968 Nov, [facility] [address] [id number] [place] [address]- 4577 Nov, [facility] [address] [id number] [place] [address]- 8699 Oct, [facility] [address] [id number] [place] [address]- 2940 Oct, [facility] [address] [id number], [place] [address]- 0836 Oct, [facility] [address] [id number] [place] [address]- 5363 Sep, [facility] [address] [id number] [place] [address]- 0882 Sep, [facility] [address] [id number], [place] [address]- 5579 Sep, [facility] [address] [id number], [place] [address] Sep, [facility] [address] [id number] [place] [address]- 1360 Sep, [facility] [address] [id number], [place] [address]- 7201 Sep, [facility] [address] [id number] [place] [address]- 0466 August, [facility] [address] [id number] [place] [address]- 2198 August, [facility] [address] [id number] [place] [address] August, [facility] [address] [id number] [place] [address]- 7241 August, [facility] [address] [id number] [place] [address]- 5090 August, [facility] [address] [id number] [place] [address]- 0268 August, [facility] [address] [id number] [place] [address]- 6147 August, [facility] [address] [id number] [place] [address]- 7249 Jul, [facility] [address] [id number] [place] [address]- 9114 Jul, [facility] [address] [id number] [place] [address] Jun, [facility] [address] [id number] [place] [address]- 8609 Jun, [facility] [address] [id number] [place] [address]- 8158 May, [facility] [address] [id number] [place] [address]- 0081 May, [facility] [address] [id number] [place] [address]- 6723 Apr, [facility] [address] [id number] [place] [address]- 6914 Mar, [facility] [address] [id number] [place] [address]- 7200 Mar, [facility] [address] [id number] [place] [address] Mar, [facility] [address] [id number] [place] [address]- 7287 Mar, [facility] [address] [id number] [place] [address]- 6385 Mar, [facility] [address] [id number] [place] [address]85 Mar, [facility] [address] [id number] [place] [address]- 4497 Feb, [facility] [address] [id number] [place] [address]- 1375 Feb, [facility] [address] [id number] [place] [address]- 1387 Feb, [facility] [address] [facility] [id number] [place] [address]- 8866 Feb, [facility] [address] [id number], [place] [address]- 6380 Feb, [facility] [address] [facility] [id number], [place] [address]- 9551 Feb, [facility] [address] [facility] [id number], [place] [address]- 6731 Feb, [facility] [address] [facility] [id number], [place] [address]- 0586 Feb, [facility] [address] [id number], [place] [address]- 0404 Jan, [facility] [address] [id number], [place] [address]- 7527 Jan, [facility] [address] [id number], [place] [address]- 2931 Dec, [facility] [address] [facility] [id number][place]- 4789 Dec, [facility] [address] [id number], [place] [address]- 1020 Dec, [facility] [address] [id number] [place] [address]- 3260 Dec, [facility] [address] [id number] [place] [address]- 2096 Dec, [facility] [address] [id number] [place] [address]- 0541 Nov, [facility] [address] [id number] [place] [address]- 8837 Oct, [facility] [address] [id number] [place] [address]- 0908 Oct, [facility] [address] [id number] [place] [address]- 5249 Sep, [facility] [address] [facility] [id number] [place] [address]- 5579 Sep, [facility] [address] [id number] [place] [address]- 2462 Sep, [facility] [address] [id number] [place] [address]- 0174 Sep, [facility] [address] [facility] [id number] [place] [address]- 8896 Sep, [facility] [address] [id number] [place] [address]- 6509 Sep, [facility] [address] [id number] [place] [address]- 2377 Sep, [facility] [address] [id number] [place] [address]- 2947 Sep, [facility] [address] [facility] [id number] [place] [address]- 4621 August, [facility] [address] [facility] [id number] [place] [address]- 9302 August, [facility] [address] [id number] [place] [address]- 2003 August, [facility] [address] [id number] [place] [address]- 0044 Jul, [facility] [address] [id number] [place] [address] 2546 Jul, [facility] [address] [id number] [place] [address]- 0225 Jun, [facility] [address] [id number] [place] [address]- 0893 Jun, [facility] [address] [id number] [place] [address]- 9246 Jun, [facility] [address] [id number] [place] [address]- 1237 Jun, [facility] [address] [id number] [place] [address]- 6465 May, [facility] [address] [id number] [place] [address]- 8703 May, [facility] [address] [id number] [place] [address]- 9626 Apr, [facility] [address] [id number] [place] [address]- 9868 Apr, [facility] [address] [id number] [place] [address]- 8426 Apr, [facility] [address] [id number] [place] [address]- 3047 14 Mar, 2011 [facility] [address] [id number] [place] [address]- 9236 09 Mar, 2011 [facility] [address] [id number] [place] [address]- 2546 07 Mar, 2011 [facility] [address] [id number] [place] [address]- 0826 Feb, [facility] [address] [id number] [place] [address]- 2647 Feb, [facility] [address] [id number] [place] [address]- 8473 Feb, [facility] [address] [facility] [id number] [place] [address]- 6511 Feb, [facility] [address] [id number] [place] [address]- 4807 Jan, [facility] [address] [id number] [place] [address]- 7691 14 Jan, 2011 [facility] [facility] [address] [id number] [place] [address]- 0312 Jan, [facility] [address] [id number] [place] [address]- 3798 16 Dec, 2010 [facility] [address] [id number], [place] [address]- 1554 Oct, [facility] [address] [id number], [place] [address]- 6729 Mar, [facility] [address] [id number], [place] [address]- 6239 Feb, [facility] [address] [id number], [place] [address]- 3274 Feb, [facility] [address] [id number], [place] [address]- 8390 May, [facility] [facility] [address] [id number] [place] [address]- 0216 Apr, [facility] [address] [facility] [id number], [place] [address]- 6892 Mar, [facility] [address] [id number], [place] [address]- 6569 30 Jan, 2009 [facility] [address] [facility] [id number] [place] [address]- 2546 Oct, [facility] [address] [facility] [id number], [place] [address] 2546 Jul, [facility] [address] [id number], [place] [address]- 2546 Mar, [facility] [address] [facility] [id number], [place] [address] 2541 Feb, [facility] [address] [facility] [id number], [place] [address]- 4690 Jan, IMMUNIZATIONS No Known Immunizations SOCIAL HISTORY Never Assessed REASON FOR VISIT medication refill PLAN OF CARE VITAL SIGNS MEDICATIONS Unknown [...]
--- OUTSIDE RECORDS SUMMARY | 2018-07-05 12:34 | XMS REPORT ---
Author Author KATHYA FISCHER Organization [facility] Address [address] [place] [address] Care Team Providers Care Rn Transitional Care Name Role Phone KATHYA FISCHER Unavailable PROBLEMS Type Condition ICD9-CM Code WQV81-HU Code Onset Dates Condition Status SNOMED Code Problem Arthritis M19.90 Active 7145159 Problem 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 Active 06450937 Problem Polyneuropathy G62.9 Active 40495013 Problem Other male erectile dysfunction N52.8 Active 543422826 Problem Constipation K59.00 Active 01536789 Problem Type 2 diabetes mellitus with 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 E11.65 Active 402788446 Problem Controlled type 2 diabetes mellitus without complication, without long -term current use of insulin E11.9 Active 344912956 Problem retirement current use of insulin Z79.4 Active 312309865 Problem Neuropathy G62.9 Active 677373729 Problem Obstructive sleep apnea G47.33 Active 26738365 Problem Hypertension, benign I10 Active 39177564 Problem Uncontrolled type 2 diabetes mellitus without complication, without long-term current use of insulin E11.65 Active 431268154 Problem Stress incontinence of urine N39.3 Active 44280533 Problem Fibromyalgia M79.7 Active 444426316 ALLERGIES No Information ENCOUNTERS Encounter Location Date Diagnosis [facility] [id number] [place] [address] 92630- 0229 Dec, [facility] [address], [place] [address] 3171 Nov, [facility] [id number] [place] [address] 56482- 8427 Nov, Therapeutic drug monitoring Z51.81 [facility] [id number] [place] [address] 41498- 4413 Nov, [facility] [id number] [place] [address] 55807- 0066 Nov, Therapeutic drug monitoring Z51.81 ; Fibromyalgia M79.7 and Controlled type 2 diabetes mellitus without complication, without long-term current use of insulin E11.9 [facility] [id number] [place] [address] 45270- 1596 Nov, Type 2 diabetes mellitus with 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 E11.65 [facility] [id number] [place] [address] 84625- 2673 Nov, [facility] [id number] [place] [address] 62794- 9695 Nov, [facility] [id number] [place] [address] 95738- 9734 Nov, Type 2 diabetes mellitus with 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 E11.65 [facility] [id number] [place] [address] 17682- 8657 Nov, [facility] [address] 61421- 1767 Nov, [facility] [id number] [place] [address] 45318- 0594 Nov, Constipation K59.00 [facility] [id number] [place] [address] 76332- 7894 Oct, Diabetes type 2, controlled E11.9 [facility] [id number] [place] [address] 24375- 5838 Oct, Type 2 diabetes mellitus with 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 E11.65 ; 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 and Neuropathy G62.9 [facility] [id number] [place] [address] 36604- 8851 Oct, [facility] [id number] [place] [address] 26612- 7964 Oct, [facility] [id number] [place] [address] 92346- 7077 Oct, [facility] [id number] [place] [address] 17515- 6783 Oct, [facility] [address], [place] [address]- 4677 Oct, [facility] [id number] [place] [address] 44846- 8314 Oct, [facility] [id number] [place] [address] 41244- 9863 Oct, [facility] [id number] [place] [address] 27969- 9141 Sep, [facility] [id number] [place] [address] 07256- 5188 Sep, Uncontrolled type 2 diabetes mellitus without complication, without long-term current use of insulin E11.65 [facility] [id number] [place] [address] 59801- 9693 Sep, Hypertension, benign I10 ; Fibromyalgia M79.7 ; Controlled type 2 diabetes mellitus without complication, without long-term current use of insulin E11.9 and Uncontrolled type 2 diabetes mellitus without complication, without long-term current use of insulin E11.65 [facility] [id number] [place] [address] 28257- 4574 Sep, [facility] [id number] [place] [address] 22726- 8874 Sep, Uncontrolled type 2 diabetes mellitus without complication, without long-term current use of insulin E11.65 [facility] [address], [place] [address]- 7374 Sep, [facility] [address], [place] [address]- 6673 Sep, [facility] [id number] [place] [address] 98304- 9312 Sep, Uncontrolled type 2 diabetes mellitus without complication, without long-term current use of insulin E11.65 and Fibromyalgia M79.7 [facility] [id number] [place] [address] 68208- 1837 August, [facility] [id number] [place] [address] 76204- 0728 August, [facility] [id number] [place] [address] 68525- 0954 August, [facility] [id number] [place] [address] 56618- 3807 August, Fibromyalgia M79.7 [facility] [id number] [place] [address] 56028- 4092 Jul, Hypertension, benign I10 [facility] [address] 61028- 3170 Jul, Fibromyalgia M79.7 [facility] [id number] [place] [address] 41852- 1690 Jul, [facility] [address] 62430- 3470 Jun, [facility] [id number] [place] [address] 49520- 2147 Jun, Hypertension, benign I10 ; Arthritis M19.90 ; 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 and Uncontrolled type 2 diabetes mellitus without complication, without long-term current use of insulin E11.65 [facility] [id number] [place] [address] 82128 -5768 Jun, Acute nasopharyngitis J00 and BMI 50.0-59.9, adult Z68.43 [facility] [id number] [place] [address] 13090- 3401 Jun, Fibromyalgia M79.7 [facility] [id number] [place] [address] 23317- 2774 May, [facility] [id number] [place] [address] 59811- 5861 May, Fibromyalgia M79.7 [facility] [address], [place] [address] 2546 Apr, Fibromyalgia M79.7 [facility] [address], [place] [address] 2546 Apr, [facility] [address], [place] [address] 2546 Apr, [facility] [id number] [place] [address] 67805 2546 Apr, Arthritis M19.90 [facility] [id number] [place] [address] 32874 2546 Apr, Arthritis M19.90 [facility] [id number] [place] [address] 21731 2546 Apr, Arthritis M19.90 and Controlled type 2 diabetes mellitus without complication, without long-term current use of insulin E11.9 [facility] [address], [place] [address] 2546 Apr, [facility] [address], [place] [address] 2546 Apr, Fibromyalgia M79.7 [facility] [address], [place] [address] 2546 Mar, [facility] [address], [place] [address] 2546 Mar, [facility] [address], [place] [address] 2546 Mar, Fibromyalgia M79.7 [facility] [address], [place] [address] 2546 Feb, [facility] [address], [place] [address] 2546 Feb, [facility] [id number], [place] [address] 2546 Feb, [facility] [id number] [place] [address] 82863- 1851 Feb, Fibromyalgia M79.7 [facility] [address] 73381- 1519 Feb, Diabetes type 2, uncontrolled E11.65 and Encounter for immunization Z23 [facility] [address] 38627- 1044 Jan, [facility] [address] 13060- 7521 Jan, Fibromyalgia M79.7 [facility] [address] 25401- 3180 Dec, [facility] [address] 26022- 0542 Dec, Fibromyalgia M79.7 [facility] [address] 50754- 8795 Nov, [facility] [id number] [place] [address] 38871- 7557 Nov, [facility] [address] 38214- 4523 Nov, 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 and Polyneuropathy G62.9 [facility] [id number] [place] [address] 40206- 4053 Nov, [facility] [id number] [place] [address] 05934- 7507 Nov, [facility] [id number] [place] [address] 43565- 1437 Oct, Diabetes type 2, uncontrolled E11.65 [facility] [address] 60624- 2580 Oct, Diabetes type 2, uncontrolled E11.65 ; Polyneuropathy G62.9 and Pain in right wrist M25.531 [facility] [id number] [place] [address] 54193- 7786 Oct, [facility] [address], [place] [address]- 0376 Oct, Pain in left shoulder M25.512 [facility] [address] [id number], [place] [address]- 6726 Sep, [facility] [id number] [place] [address] 00314- 1540 Sep, Pain in left shoulder M25.512 [facility] [address] [id number] [address]- 6542 Sep, [facility] [id number] [place] [address] 84306- 6532 August, Pain in left shoulder M25.512 [facility] [address], [place] [address]- 1066 Jul, [facility] [id number] [address]- 3648 Jul, [facility] [id number] [address]- 7746 Jul, Pain in left shoulder M25.512 [facility] [address], [place] [address]- 7396 Jun, [facility] [address], [place] [address]- 7066 Jun, [facility] [address], [place] [address]- 4072 Jun, Diabetes type 2, uncontrolled E11.65 ; Fibromyalgia M79.7 and Arthritis M19.90 [facility] [id number] [address]- 4546 Jun, Pain in left shoulder M25.512 [facility] [address], [place] [address]- 0066 May, [facility] [address], [place] [address]- 3397 May, Diabetes type 2, controlled E11.9 [facility] [id number] [place] [address] 20922- 4891 17 May, 2016 [facility] [id number] [place] [address] 58227- 3941 May, Uncontrolled type 2 diabetes mellitus without complication, without long-term current use of insulin E11.65 [facility] [address] [place] [address] 36082- 2447 May, Pain in left shoulder M25.512 [facility] [id number] [place] [address] 23403- 9047 03 May, 2016 Diabetes type 2, controlled E11.9 and Uncontrolled type 2 diabetes mellitus without complication, without long-term current use of insulin E11.65 [facility] [address] [place] [address] 88058- 9281 Apr, [facility] [address] [place] [address] 81673- 1132 Apr, [facility] [id number] [place] [address] 08838- 6858 Mar, [facility] [address], [place] [address]- 3718 Mar, [facility] [address] [place] [address] 06876- 6751 Mar, [facility] [id number] [place] [address] 21447- 3558 Feb, [facility] [address] [place] [address] [id number] Feb, Dental examination Z01.20 [facility] [address], [place] [address]- 2728 Jan, [facility] [id number] [place] [address] 42517- 2514 14 Dec, 2015 [facility] [address] [id number] [place] [address]- 9590 Dec, [facility] [address] [id number] [place] [address]- 4980 Dec, [facility] [address] [id number] [place] [address]- 8529 Dec, Diabetes type 2, controlled E11.9 [facility] [address] [id number] [place] [address]- 7118 Nov, [facility] [address] [id number] [place] [address]- 4082 Nov, [facility] [address] [id number] [place] [address]- 6007 Nov, [facility] [address] [id number] [place] [address]- 5502 Nov, [facility] [address] [id number] [place] [address]- 6108 Oct, [facility] [address] [id number] [place] [address]- 2729 Oct, [facility] [address] [id number] [place] [address]- 3168 Oct, [facility] [address] [id number] [place] [address]- 0155 Sep, [facility] [address] [id number] [place] [address]- 3802 Sep, Diabetes type 2, controlled E11.9 [facility] [address] [id number] [place] [address]- 3090 Sep, Diabetes type 2, controlled E11.9 [facility] [address] [id number] [place] [address]- 9575 August, [facility] [id number] [place] [address] 36116- 1597 August, [facility] [id number] [place] [address] 43207- 9759 August, Type 2 diabetes mellitus without complication E11.9 and Pain in left shoulder M25.512 [facility] [id number] [place] [address]- 1578 Jul, [facility] [id number] [place] [address] 23106- 5382 Jul, Diabetes type 2, controlled E11.9 and Hypertension, benign I10 [facility] [id number] [place] [address] 92214- 5190 Jun, [facility] [id number] [place] [address] 15351- 7519 Jun, [facility] [id number] [place] [address] 39433- 7024 Jun, Diabetes 250.00 [facility] [id number] [place] [address] 97831- 4843 Jun, [facility] [id number] [place] [address] 18330- 8267 May, Diabetes type 2, uncontrolled E11.65 [facility] [address], [place] [address]- 6285 May, [facility] [address] [place] [address] 67815- 2093 Apr, Type 2 diabetes mellitus without complication E11.9 [facility] [address], [place] [address]- 3174 Apr, Encounter for immunization Z23 [facility] [address], [place] [address]- 9694 Apr, [facility] [address], [place] [address]- 0904 Mar, [facility] [address], [place] [address]- 3253 Mar, [facility] [address], [place] [address]- 0855 Mar, [facility] [address], [place] [address]- 6280 Feb, [facility] [address] [place] [address] 27674- 5158 Jan, [facility] [address], [place] [address]- 0385 Jan, [facility] [id number] [place] [address] 91577- 6401 Jan, [facility] [address], [place] [address]- 9890 Dec, Diabetes 250.00 and COPD (chronic obstructive pulmonary disease) 496 [facility] [address], [place] [address]- 6229 Dec, [facility] [address], [place] [address]- 2476 Dec, [facility] [address], [place] [address]- 4470 Nov, [facility] [address], [place] [address]- 8371 Oct, Diabetes 250.00 [facility] [address], [place] [address]- 3956 Sep, [facility] [address], [place] [address]- 4326 Sep, [facility] [address], [place] [address]- 4812 Sep, [facility] [id number], [place] [address]- 8459 Sep, Diabetes 250.00 [facility] [address] [place] [address]- 0176 Sep, [facility] [address], [place] [address]- 6228 Sep, [facility] [address] [place] [address]- 7186 August, Hypertension, essential, benign 401.1 ; Coronary atherosclerosis of [place] coronary artery 414.01 and Diabetic neuropathy associated with type 2 diabetes mellitus 250.60 [facility] [address] [id number] [place] [address]- 9553 Jul, [facility] [address] [place] [address], [place] [address]- 8590 Jul, [facility] [address] [place] [address]- 6766 Jul, [facility] [address], [place] [address]- 4172 Jun, [facility] [address], [place] [address]- 7672 Jun, [facility] [address] 6797 Jun, [facility] [address], [place] [address]- 6863 Jun, [facility] [address], [place] [address]- 0856 Jun, [facility] [id number], [place] [address]- 0646 May, [facility] [address] [place] [address]- 9686 May, [facility] [address], [place] [address]- 2546 May, [facility] [address], [place] [address] 6493 May, 2014 [facility] [place] [facility] [address] [id number] [place] [address]- 6849 May, 2014 [facility] [place] [facility] [address] [id number] [place] [address]- 5119 May, [facility] [place] [facility] [address] [id number] [place] [address]- 2514 May, [facility] [place] [facility] [address] [id number] [place] [address]- 7858 Apr, [facility] [place] [facility] [address] [id number] [place] [address]- 5136 Apr, [facility] [place] [facility] [address] [id number] [place] [address]- 3579 Apr, [facility] [place] [facility] [address] [id number] [place] [address]- 1155 Apr, [facility] [place] [facility] [address] [id number] [place] [address]- 5428 Mar, [facility] [place] [facility] [address] [id number] [place] [address]- 7416 Mar, [facility] [place] [facility] [address] [id number] [place] [address]- 5860 Mar, [facility] [place] [facility] [address] [id number] [place] [address]- 4903 Mar, [facility] [place] [facility] [address] [id number], [place] [address]- 7158 Feb, [facility] [place] [facility] [address] [id number] [place] [address]- 8292 Feb, [facility] [place] [facility] [address] [id number] [place] [address]- 9885 Feb, [facility] [place] [facility] [address] [id number] [place] [address]- 4481 Feb, [facility] [place] [facility] [address] [id number] [place] [address]- 0263 Feb, [facility] [place] [facility] [address] [id number] [place] [address]- 3945 Feb, [facility] [place] [facility] [address] [id number] [place] [address]- 8530 Feb, [facility] [place] [facility] [address] [id number] [place] [address]- 1138 Jan, [facility] [place] [facility] [address] [id number] [place] [address]- 4137 Jan, [facility] [place] [facility] [address] [id number] [place] [address]- 6056 Dec, [facility] [place] [facility] [address] [id number] [place] [address]- 1615 Dec, [facility] [place] [facility] [address] [id number] [place] [address]- 4351 Dec, [facility] [place] [facility] [address] [id number] [place] [address]- 0278 Dec, [facility] [place] [facility] [address] [id number] [place] [address]- 2442 Dec, [facility] [place] [facility] [address] [id number] [place] [address]- 7572 Dec, [facility] [place] [facility] [address] [id number] [place] [address]- 1078 Dec, [facility] [place] [facility] [address] [id number] [place] [address]- 9457 Dec, [facility] [place] [facility] [address] [id number] [place] [address]- 0787 Nov, [facility] [place] [facility] [address] [id number] [place] [address]- 4092 Nov, [facility] [place] [facility] [address] [id number] [place] [address]- 5010 Nov, [facility] [place] [facility] [address] [id number] [place] [address]- 9227 Nov, [facility] [place] [facility] [address] [id number] [place] [address]- 0067 Oct, [facility] [place] [facility] [address] [id number] [place] [address]- 9077 Oct, [facility] [place] [facility] [address] [id number] [place] [address]- 8109 Oct, [facility] [place] [facility] [address] [id number] [place] [address]- 5202 Oct, [facility] [place] [facility] [address] [id number] [place] [address]- 9544 Oct, [facility] [place] [facility] [address] [id number] [place] [address]- 7951 Oct, [facility] [place] [facility] [address] [id number] [place] [address] Oct, [facility] [place] [facility] [address] [id number] [place] [address] Oct, [facility] [place] [facility] [address] [id number] [place] [address] Sep, [facility] [place] [facility] [address] [id number] [place] [address] Sep, [facility] [place] [facility] [address] [id number] [place] [address] August, [facility] [place] [facility] [address] [id number] [place] [address] August, [facility] [place] [facility] [address] [id number] [place] [address] Jul, [facility] [place] [facility] [address] [id number] [place] [address] Jul, [facility] [place] [facility] [address] [id number], [place] [address] Jul, [facility] [address] [id number] [place] [address] Jul, [facility] [place] [facility] [address] [id number] [place] [address] Jul, [facility] [address] [id number] [place] [address] Jul, [facility] [place] [facility] [address] [id number] [place] [address] Jul, [facility] [address] [id number] [place] [address] Jul, [facility] [place] [facility] [address] [id number] [place] [address] Jun, [facility] [address] [id number] [place] [address] Jun, [facility] [place] [facility] [address] [id number] [place] [address] Jun, [facility] [address] [id number] [place] [address] Jun, [facility] [place] [facility] [address] [id number] [place] [address] May, [facility] [place] [facility] [address] [id number] [place] [address] May, [facility] [place] [facility] [address] [id number] [place] [address] Apr, [facility] [place] [facility] [address] [id number] [place] [address] Apr, [facility] [place] [facility] [address] [id number] [place] [address] Mar, [facility] [place] [facility] [address] [id number] [place] [address] Mar, [facility] [place] [facility] [address] [id number] [place] [address] 18 Mar, 2013 [facility] [place] [facility] [address] [id number] [place] [address] 18 Mar, 2013 [facility] [place] [facility] [address] [id number] [place] [address] 18 Mar, 2013 [facility] [place] [facility] [address] [id number] [place] [address]21 18 Mar, 2013 [facility] [place] [facility] [address] [id number] [place] [address] 119[address] Feb, [facility] [place] [facility] [address] [id number] [place] [address] 94[address] Feb, [facility] [place] [facility] [address] [id number] [place] [address]- [address] Feb, [facility] [place] [facility] [address] [id number] [place] [address] 99[address] Feb, [facility] [place] [facility] [address] [id number] [place] [address] 2447 18 Feb, 2013 [facility] [place] [facility] [address] [id number] [place] [address] 18 Feb, 2013 [facility] [place] [facility] [address] [id number] [place] [address] 6141 12 Feb, 2013 [facility] [place] [facility] [address] [id number] [place] [address] 2872 12 Feb, 2013 [facility] [place] [facility] [address] [id number] [place] [address] 15 Jan, 2013 [facility] [place] [facility] [address] [id number] [place] [address]- 6169 15 Jan, 2013 [facility] [place] [facility] [address] [id number] [place] [address]653 14 Jan, 2013 [facility] [place] [facility] [address] [id number] [place] [address]- 2635 Jan, [facility] [place] [facility] [address] [id number] [place] [address] 6657 18 Dec, 2012 [facility] [place] [facility] [address] [id number] [place] [address]99 Dec, [facility] [place] [facility] [address] [id number] [place] [address] 6636 Dec, [facility] [place] [facility] [address] [id number] [place] [address]951 Nov, [facility] [place] [facility] [address] [id number] [place] [address] 3924 Nov, [facility] [place] [facility] [address] [id number] [place] [address]- 8588 Oct, [facility] [place] [facility] [address] [id number] [place] [address]- 6787 Oct, [facility] [place] [facility] [address] [id number], [place] [address] Oct, [facility] [place] [facility] [address] [id number] [place] [address]- 1081 Sep, [facility] [place] [facility] [address] [id number] [place] [address]- 9035 Sep, [facility] [place] [facility] [address] [id number], [place] [address] Sep, [facility] [place] [facility] [address] [id number], [place] [address]- [address] Sep, [facility] [place] [facility] [address] [id number] [place] [address]- 0761 Sep, [facility] [place] [facility] [address] [id number], [place] [address]- 3868 Sep, [facility] [place] [facility] [address] [id number] [place] [address] 8329 August, [facility] [place] [facility] [address] [id number] [place] [address]- 1246 August, [facility] [address] [id number] [place] [address] August, [facility] [address] [id number] [place] [address] 6238 August, [facility] [address] [id number] [place] [address] 8288 August, [facility] [address] [id number] [place] [address] 1827 August, [facility] [address] [id number] [place] [address] 2934 August, [facility] [address] [id number] [place] [address] 1452 Jul, [facility] [address] [id number] [place] [address] Jul, [facility] [address] [id number] [place] [address]- 5353 Jun, [facility] [address] [id number] [place] [address]- 1098 Jun, [facility] [address] [id number] [place] [address] 7702 May, [facility] [address] [id number] [place] [address] 4654 May, [facility] [address] [id number] [place] [address]35 Apr, [facility] [address] [id number] [place] [address] 6353 Mar, [facility] [address] [id number] [place] [address] 4459 Mar, [facility] [address] [id number] [place] [address] Mar, [facility] [place] [facility] [address] [id number] [place] [address]- 3847 Mar, [facility] [place] [facility] [address] [id number] [place] [address]- 8237 Mar, [facility] [place] [facility] [address] [id number] [place] [address] Mar, [facility] [place] [facility] [address] [id number] [place] [address]- 0323 Feb, [facility] [place] [facility] [address] [id number] [place] [address]- 7407 Feb, [facility] [place] [facility] [address] [id number] [place] [address] 1356 Feb, [facility] [place] [facility] [address] [id number] [place] [address]- 8130 Feb, [facility] [place] [facility] [address] [id number], [place] [address] 65[address] Feb, [facility] [place] [facility] [address] [id number], [place] [address] 1660 Feb, [facility] [place] [facility] [address] [id number], [place] [address] 9401 Feb, [facility] [place] [facility] [address] [id number], [place] [address]- 8686 Feb, [facility] [place] [facility] [address] [id number], [place] [address] 9412 Jan, [facility] [place] [facility] [address] [id number], [place] [address]- 4762 Jan, [facility] [place] [facility] [address] [id number], [place] [address]- 7542 Dec, [facility] [place] [facility] [address] [id number][place] [address]69 Dec, [facility] [place] [facility] [address] [id number], [place] [address] 0100 Dec, [facility] [place] [facility] [address] [id number] [place] [address]- 4784 Dec, [facility] [place] [facility] [address] [id number] [place] [address]- 8456 Dec, [facility] [place] [facility] [address] [id number] [place] [address]- 6737 Nov, [facility] [place] [facility] [address] [id number] [place] [address]- 3215 Oct, [facility] [place] [facility] [address] [id number] [place] [address]- 9794 Oct, [facility] [place] [facility] [address] [id number] [place] [address]- 2028 Sep, [facility] [place] [facility] [address] [id number] [place] [address]- 8986 Sep, [facility] [place] [facility] [address] [id number] [place] [address]- 9535 Sep, [facility] [place] [facility] [address] [id number] [place] [address]- 3729 Sep, [facility] [place] [facility] [address] [id number] [place] [address]- 2654 Sep, [facility] [place] [facility] [address] [id number] [place] [address]- 6935 Sep, [facility] [place] [facility] [address] [id number] [place] [address]- 3606 Sep, [facility] [place] [facility] [address] [id number] [place] [address]- 6109 Sep, [facility] [place] [facility] [address] [id number] [place] [address]- 4364 August, [facility] [place] [facility] [address] [id number] [place] [address]- 8317 August, [facility] [place] [facility] [address] [id number] [place] [address]- 9039 August, [facility] [address] [id number] [place] [address]- 8623 Jul, [facility] [place] [facility] [address] [id number] [place] [address] 2546 Jul, [facility] [place] [facility] [address] [id number] [place] [address]- 0988 Jun, [facility] [place] [facility] [address] [id number] [place] [address]- 8156 Jun, [facility] [place] [facility] [address] [id number] [place] [address]- 8176 Jun, [facility] [place] [facility] [address] [id number] [place] [address]- 2898 Jun, [facility] [place] [facility] [address] [id number] [place] [address]- 0604 May, [facility] [place] [facility] [address] [id number] [place] [address]- 5244 May, [facility] [place] [facility] [address] [id number] [place] [address]- 0939 Apr, [facility] [place] [facility] [address] [id number] [place] [address]- 2883 Apr, [facility] [place] [facility] [address] [id number] [place] [address]- 9311 Apr, [facility] [place] [facility] [address] [id number] [place] [address]- 6125 14 Mar, 2011 [facility] [place] [facility] [address] [id number] [place] [address]- 3946 09 Mar, 2011 [facility] [place] [facility] [address] [id number] [place] [address]- 2546 07 Mar, 2011 [facility] [place] [facility] [address] [id number] [place] [address]- 0292 Feb, [facility] [place] [facility] [address] [id number] [place] [address]- 5558 Feb, [facility] [place] [facility] [address] [id number] [place] [address]- 2822 Feb, [facility] [place] [facility] [address] [id number] [place] [address]- 4621 Feb, [facility] [place] [facility] [address] [id number] [place] [address]- 8238 Jan, [facility] [place] [facility] [address] [id number] [place] [address]- 8243 14 Jan, 2011 [facility] [place] [facility] [address] [id number] [place] [address]- 6361 Jan, [facility] [place] [facility] [address] [id number] [place] [address]- 0163 16 Dec, 2010 [facility] [place] [facility] [address] [id number], [place] [address]- 0972 Oct, [facility] [place] [facility] [address] [id number], [place] [address]- 8083 Mar, [facility] [place] [facility] [address] [id number], [place] [address]- 9867 Feb, [facility] [place] [facility] [address] [id number], [place] [address]- 4224 Feb, [facility] [place] [facility] [address] [id number], [place] [address]- 3903 May, [facility] [place] [facility] [address] [id number] [place] [address]- 7951 Apr, [facility] [place] [facility] [address] [id number], [place] [address]- 6751 Mar, [facility] [place] [facility] [address] [id number], [place] [address]- 9238 30 Jan, 2009 [facility] [place] [facility] [address] [id number] [place] [address] 2546 Oct, [facility] [address] [id number], [place] [address]- 0774 Jul, [facility] [address] [id number], [place] [address] 2546 Mar, [facility] [address] [id number], [place] [address]- 3702 Feb, [facility] [address] [id number], [place] [address]- 7104 Jan, IMMUNIZATIONS No Known Immunizations SOCIAL HISTORY [...]
--- OUTSIDE RECORDS SUMMARY | 2018-07-05 12:35 | XMS REPORT ---
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 Name Role Phone KATHYA FISCHER Unavailable PROBLEMS Type Condition ICD9-CM Code JOW11-JE Code Onset Dates Condition Status SNOMED Code Problem Arthritis M19.90 Active 5037888 Problem 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 Active 16756175 Problem Polyneuropathy G62.9 Active 23150516 Problem Other male erectile dysfunction N52.8 Active 093027473 Problem Constipation K59.00 Active 59750638 Problem Type 2 diabetes mellitus with 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 E11.65 Active 650992888 Problem Controlled type 2 diabetes mellitus without complication, without long -term current use of insulin E11.9 Active 132170066 Problem [facility] current use of insulin Z79.4 Active 989068725 Problem Neuropathy G62.9 Active 609165252 Problem Obstructive sleep apnea G47.33 Active 83921403 Problem Hypertension, benign I10 Active 75317636 Problem Uncontrolled type 2 diabetes mellitus without complication, without long-term current use of insulin E11.65 Active 704765597 Problem Stress incontinence of urine N39.3 Active 35457322 Problem Fibromyalgia M79.7 Active 672972071 ALLERGIES No Information ENCOUNTERS Encounter Location Date Diagnosis [facility] [id number] [place] [address] 39414- 7594 Dec, [facility] [address] [address] 0601 Nov, [facility] [id number] [place] [address] 65890- 5715 Nov, Therapeutic drug monitoring Z51.81 [facility] [address] [place] [address] 95313- 2787 Nov, [facility] [id number] [place] [address] 33038- 2895 Nov, Therapeutic drug monitoring Z51.81 ; Fibromyalgia M79.7 and Controlled type 2 diabetes mellitus without complication, without long-term current use of insulin E11.9 [facility] [id number] [place] [address] 99211- 6886 Nov, Type 2 diabetes mellitus with 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 E11.65 [facility] [id number] [place] [address] 20510- 0762 Nov, [facility] [id number] [place] [address] 89211- 8555 Nov, [facility] [id number] [place] [address] 22153- 2980 Nov, Type 2 diabetes mellitus with 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 E11.65 [facility] [id number] [place] [address] 14437- 5011 Nov, [facility] [address] 88255- 0328 Nov, [facility] [id number] [place] [address] 76842- 6498 Nov, Constipation K59.00 [facility] [id number] [place] [address] 24280- 3948 Oct, Diabetes type 2, controlled E11.9 [facility] [id number] [place] [address] 44808- 3251 Oct, Type 2 diabetes mellitus with 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 E11.65 ; 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 and Neuropathy G62.9 [facility] [id number] [place] [address] 15760- 7019 Oct, [facility] [id number] [place] [address] 60908- 1507 Oct, [facility] [id number] [place] [address] 92209- 8743 Oct, [facility] [id number] [place] [address] 60910- 3956 Oct, [facility] [address], [place] [address]- 3582 Oct, [facility] [address] [place] [address] 37087- 4131 Oct, [facility] [id number] [place] [address] 84480- 9392 Oct, [place] [facility] [id number] [place] [address] 69027- 4584 Sep, [facility] [id number] [place] [address] 41126- 2790 Sep, Uncontrolled type 2 diabetes mellitus without complication, without long-term current use of insulin E11.65 [facility] [id number] [place] [address] 01828- 4067 Sep, Hypertension, benign I10 ; Fibromyalgia M79.7 ; Uncontrolled type 2 diabetes mellitus without complication, without long-term current use of insulin E11.65 and Controlled type 2 diabetes mellitus without complication, without long-term current use of insulin E11.9 [facility] [facility] [address] [place] [address] 35845- 7572 Sep, [facility] [facility] [address] [place] [address] 42472- 3627 Sep, Uncontrolled type 2 diabetes mellitus without complication, without long-term current use of insulin E11.65 [facility] [facility] [address], [place] [address]- 3488 Sep, [facility] [address], [place] [address]- 9910 Sep, [facility] [id number] [place] [address] 17282- 9768 Sep, Uncontrolled type 2 diabetes mellitus without complication, without long-term current use of insulin E11.65 and Fibromyalgia M79.7 [facility] [facility] [id number] [place] [address] 00545- 6071 August, [facility] [id number] [place] [address] 67529- 1863 August, [facility] [id number] [place] [address] 47366- 6563 August, [facility] [id number] [place] [address] 92621- 7418 August, Fibromyalgia M79.7 [facility] [id number] [place] [address] 68156- 2728 Jul, Hypertension, benign I10 [facility] [address] 92805- 3865 Jul, Fibromyalgia M79.7 [facility] [id number] [place] [address] 32682- 6857 Jul, [facility] [address] 70897- 6215 Jun, [facility] [id number] [place] [address] 84712- 2226 Jun, Hypertension, benign I10 ; Arthritis M19.90 ; 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 and Uncontrolled type 2 diabetes mellitus without complication, without long-term current use of insulin E11.65 [facility] [id number] [place] [address] 87852 -0350 Jun, Acute nasopharyngitis J00 and BMI 50.0-59.9, adult Z68.43 [facility] [id number] [place] [address] 36436- 2661 Jun, Fibromyalgia M79.7 [facility] [id number] [place] [address] 18125- 1666 May, [facility] [id number] [place] [address] 68302- 6651 May, Fibromyalgia M79.7 [facility] [address], [place] [address] 2546 Apr, Fibromyalgia M79.7 [facility] [address], [place] [address] 2546 Apr, [facility] [address], [place] [address] 2546 Apr, [facility] [id number] [place] [address] 49901 2546 Apr, Arthritis M19.90 [facility] [address] [place] [address] 77766 2546 Apr, Arthritis M19.90 [facility] [address] [place] [address] 48724 2546 Apr, Arthritis M19.90 and Controlled type 2 diabetes mellitus without complication, without long-term current use of insulin E11.9 [facility] [address], [place] [address] 2546 Apr, [facility] [address], [place] [address] 2546 Apr, Fibromyalgia M79.7 [facility] [address], [place] [address] 2546 Mar, [facility] [address], [place] [address] 2546 Mar, [facility] [address], [place] [address] 2546 Mar, Fibromyalgia M79.7 [facility] [address], [place] [address] 2546 Feb, [facility] [address], [place] [address] 2546 Feb, [facility] [id number], [place] [address] 2546 Feb, [facility] [id number] [place] [address] 66286- 2716 Feb, Fibromyalgia M79.7 [facility] [address] 56554- 2315 Feb, Diabetes type 2, uncontrolled E11.65 and Encounter for immunization Z23 [facility] [address] 82472- 9579 Jan, [facility] [address] 16008- 8008 Jan, Fibromyalgia M79.7 [facility] [address] 73875- 3004 Dec, [facility] [address] 10110- 9309 Dec, Fibromyalgia M79.7 [facility] [address] 19177- 1121 Nov, [facility] [id number] [place] [address] 63715- 2025 Nov, [facility] [address] 92642- 6114 Nov, 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 and Polyneuropathy G62.9 [facility] [id number] [place] [address] 15204- 4135 Nov, [facility] [id number] [place] [address] 14633- 1808 Nov, [facility] [id number] [place] [address] 33993- 1495 Oct, Diabetes type 2, uncontrolled E11.65 [facility] [address] 67899- 2382 Oct, Diabetes type 2, uncontrolled E11.65 ; Polyneuropathy G62.9 and Pain in right wrist M25.531 [facility] [id number] [place] [address] 61066- 6656 Oct, [facility] [address], [place] [address]- 0206 Oct, Pain in left shoulder M25.512 [facility] [address] [facility] [id number], [place] [address]- 5706 Sep, [facility] [id number] [place] [address] 83218- 6092 Sep, Pain in left shoulder M25.512 [facility] [address] [facility] [id number] [address]- 0754 Sep, [facility] [id number] [place] [address] 45612- 0768 August, Pain in left shoulder M25.512 [facility] [address], [place] [address]- 0956 Jul, [facility] [id number] [address]- 7319 Jul, [facility] [id number] [address]- 9093 Jul, Pain in left shoulder M25.512 [facility] [address], [place] [address]- 7156 Jun, [facility] [address], [place] [address]- 0976 Jun, [facility] [address], [place] [address]- 3400 Jun, Diabetes type 2, uncontrolled E11.65 ; Fibromyalgia M79.7 and Arthritis M19.90 [facility] [address] [address]- 8746 Jun, Pain in left shoulder M25.512 [facility] [address], [place] [address]- 4786 May, [facility] [address], [place] [address]- 0149 May, Diabetes type 2, controlled E11.9 [facility] [id number] [place] [address] 81448- 9833 17 May, 2016 [facility] [id number] [place] [address] 41579- 7532 May, Uncontrolled type 2 diabetes mellitus without complication, without long-term current use of insulin E11.65 [facility] [address] [place] [address] 04542- 5101 May, Pain in left shoulder M25.512 [facility] [id number] [place] [address] 18730- 9507 03 May, 2016 Diabetes type 2, controlled E11.9 and Uncontrolled type 2 diabetes mellitus without complication, without long-term current use of insulin E11.65 [facility] [address] [place] [address] 44462- 0396 Apr, [facility] [id number] [place] [address] 70930- 0660 Apr, [facility] [id number] [place] [address] 16120- 5871 Mar, [facility] [address], [place] [address]- 1712 Mar, [facility] [id number] [place] [address] 27427- 9420 Mar, [facility] [id number] [place] [address] 77086- 0172 Feb, [facility] [address] [place] [address] [id number] Feb, Dental examination Z01.20 [facility] [address], [place] [address]- 3865 Jan, [facility] [id number] [place] [address] 78671- 6175 14 Dec, 2015 [facility] [address] [id number] [place] [address]- 5356 Dec, [facility] [address] [id number] [place] [address]- 6934 Dec, [facility] [address] [id number] [place] [address]- 0719 Dec, Diabetes type 2, controlled E11.9 [facility] [address] [id number] [place] [address]- 0530 Nov, [facility] [address] [id number] [place] [address]- 2388 Nov, [facility] [address] [id number] [place] [address]- 3900 Nov, [facility] [address] [id number] [place] [address]- 3854 Nov, [facility] [address] [id number] [place] [address]- 7298 Oct, [facility] [address] [id number] [place] [address]- 8064 Oct, [facility] [address] [facility] [id number] [place] [address]- 1204 Oct, [facility] [address] [id number] [place] [address]- 3535 Sep, [facility] [address] [id number] [place] [address]- 0771 Sep, Diabetes type 2, controlled E11.9 [facility] [address] [id number] [place] [address]- 8862 Sep, Diabetes type 2, controlled E11.9 [facility] [address] [id number] [place] [address]- 4920 August, [facility] [id number] [place] [address] 76668- 1522 August, [facility] [address] [place] [address] 17844- 9960 August, Type 2 diabetes mellitus without complication E11.9 and Pain in left shoulder M25.512 [facility] [id number] [place] [address]- 5776 Jul, [facility] [id number] [place] [address] 37614- 8965 Jul, Diabetes type 2, controlled E11.9 and Hypertension, benign I10 [facility] [id number] [place] [address] 42620- 3830 Jun, [facility] [id number] [place] [address] 70952- 5911 Jun, [facility] [id number] [place] [address] 52557- 1044 Jun, Diabetes 250.00 [facility] [id number] [place] [address] 48716- 1250 Jun, [facility] [id number] [place] [address] 83202- 9965 May, Diabetes type 2, uncontrolled E11.65 [facility] [address], [place] [address]- 1598 May, [facility] [address] [place] [address] 40410- 2486 Apr, Type 2 diabetes mellitus without complication E11.9 [facility] [address], [place] [address]- 7632 Apr, Encounter for immunization Z23 [facility] [address], [place] [address]- 2277 Apr, [facility] [address], [place] [address]- 9922 Mar, [facility] [address], [place] [address]- 3414 Mar, [facility] [address], [place] [address]- 3593 Mar, [facility] [address], [place] [address]- 4794 Feb, [facility] [address] [place] [address] 21586- 5135 Jan, [facility] [address], [place] [address]- 7673 Jan, [facility] [id number] [place] [address] 07740- 5288 Jan, [facility] [address], [place] [address]- 4782 Dec, Diabetes 250.00 and COPD (chronic obstructive pulmonary disease) 496 [facility] [address], [place] [address]- 6915 Dec, [facility] [address], [place] [address]- 9602 Dec, [facility] [address], [place] [address]- 8484 Nov, [facility] [address], [place] [address]- 5949 Oct, Diabetes 250.00 [facility] [address], [place] [address]- 0146 Sep, [facility] [address], [place] [address]- 3932 Sep, [facility] [address], [place] [address]- 4903 Sep, [facility] [id number], [place] [address]- 4716 Sep, Diabetes 250.00 [facility] [address] [place] [address]- 2406 Sep, [facility] [address], [place] [address]- 7454 Sep, [facility] [address] [place] [address]- 9606 August, Hypertension, essential, benign 401.1 ; Coronary atherosclerosis of tangirnaq coronary artery 414.01 and Diabetic neuropathy associated with type 2 diabetes mellitus 250.60 [facility] [address] [facility] [id number] [place] [address]- 4121 Jul, [facility] [id number] [place] [address], [place] [address]- 4769 Jul, [facility] [address] [place] [address]- 2746 Jul, [facility] [address], [place] [address]- 3301 Jun, [facility] [address], [place] [address]- 3280 Jun, [facility] [address] 9916 Jun, [facility] [address], [place] [address]- 2671 Jun, [facility] [address], [place] [address]- 8686 Jun, [facility] [id number], [place] [address]- 0506 May, [facility] [address] [place] [address]- 0356 May, [facility] [address], [place] [address]- 2546 May, [facility] [address], [place] [address] 604 May, 2014 [facility] [place] [facility] [address] [id number] [place] [address]- 9683 May, 2014 [facility] [place] [facility] [address] [id number] [place] [address]- 0792 May, [facility] [place] [facility] [address] [facility] [id number] [place] [address]- 0742 May, [facility] [place] [facility] [address] [id number] [place] [address]- 9917 Apr, [facility] [place] [facility] [address] [id number] [place] [address]- 7353 Apr, [facility] [place] [facility] [address] [id number] [place] [address]- 0967 Apr, [facility] [place] [facility] [address] [id number] [place] [address]- 0157 Apr, [facility] [place] [facility] [address] [id number] [place] [address]- 4025 Mar, [facility] [place] [facility] [address] [id number] [place] [address]- 6067 Mar, [facility] [place] [facility] [address] [id number] [place] [address]- 9187 Mar, [facility] [place] [facility] [address] [facility] [id number] [place] [address]- 2472 Mar, [facility] [place] [facility] [address] [id number], [place] [address]- 56[address] Feb, [facility] [place] [facility] [address] [id number] [place] [address] Feb, [facility] [place] [facility] [address] [id number] [place] [address] Feb, [facility] [place] [facility] [address] [facility] [id number] [place] [address] Feb, [facility] [place] [facility] [address] [id number] [place] [address] Feb, [facility] [place] [facility] [address] [id number] [place] [address] Feb, [facility] [place] [facility] [address] [id number] [place] [address] Feb, [facility] [place] [facility] [address] [id number] [place] [address] Jan, [facility] [place] [facility] [address] [id number] [place] [address] Jan, [facility] [place] [facility] [address] [id number] [place] [address] Dec, [facility] [place] [facility] [address] [id number] [place] [address] Dec, [facility] [place] [facility] [address] [id number] [place] [address] Dec, [facility] [place] [facility] [address] [id number] [place] [address] Dec, [facility] [place] [facility] [address] [id number] [place] [address] Dec, [facility] [place] [facility] [address] [id number] [place] [address] Dec, [facility] [place] [facility] [address] [id number] [place] [address] Dec, [facility] [place] [facility] [address] [id number] [place] [address] Dec, [facility] [place] [facility] [address] [id number] [place] [address] Nov, [facility] [place] [facility] [address] [id number] [place] [address] Nov, [facility] [place] [facility] [address] [id number] [place] [address] Nov, [facility] [place] [facility] [address] [id number] [place] [address] Nov, [facility] [place] [facility] [address] [id number] [place] [address] Oct, [facility] [place] [facility] [address] [id number] [place] [address] Oct, [facility] [place] [facility] [address] [id number] [place] [address] Oct, [facility] [place] [facility] [address] [id number] [place] [address] Oct, [facility] [place] [facility] [address] [id number] [place] [address] Oct, [facility] [place] [facility] [address] [id number] [place] [address] Oct, [facility] [place] [facility] [address] [address] [id number] [place] [address] Oct, [facility] [place] [facility] [address] [id number] [place] [address] Oct, [facility] [place] [facility] [address] [id number] [place] [address] Sep, [facility] [place] [facility] [address] [id number] [place] [address] Sep, [facility] [place] [facility] [address] [id number] [place] [address] 1428 August, [facility] [place] [facility] [address] [id number] [place] [address] August, [facility] [place] [facility] [address] [id number] [place] [address] Jul, [facility] [place] [facility] [address] [id number] [place] [address] Jul, [facility] [place] [facility] [address] [id number], [place] [address] Jul, [facility] [address] [id number] [place] [address] Jul, [facility] [place] [facility] [address] [id number] [place] [address] Jul, [facility] [address] [id number] [place] [address] 75[address] Jul, [facility] [place] [facility] [address] [id number] [place] [address] Jul, [facility] [address] [id number] [place] [address] 7572 Jul, [facility] [place] [facility] [address] [id number] [place] [address] 1370 Jun, [facility] [address] [id number] [place] [address] 9281 Jun, [facility] [place] [facility] [address] [id number] [place] [address]- 9568 Jun, [facility] [address] [id number] [place] [address]- 9864 Jun, [facility] [place] [facility] [address] [id number] [place] [address] 6[address] May, [facility] [place] [facility] [address] [id number] [place] [address]- 5177 May, [facility] [place] [facility] [address] [id number] [place] [address]- 8171 Apr, [facility] [place] [facility] [address] [id number] [place] [address]- 2661 Apr, [facility] [place] [facility] [address] [id number] [place] [address] 9084 Mar, [facility] [place] [facility] [address] [id number] [place] [address]603 Mar, [facility] [place] [facility] [address] [id number] [place] [address]- 4181 18 Mar, 2013 [facility] [place] [facility] [address] [id number] [place] [address]- 2650 18 Mar, 2013 [facility] [place] [facility] [address] [id number] [place] [address]- 6559 18 Mar, 2013 [facility] [place] [facility] [address] [id number] [place] [address]- [address] 18 Mar, 2013 [facility] [place] [facility] [address] [id number] [place] [address]- 7406 Feb, [facility] [place] [facility] [address] [id number] [place] [address]- 6782 Feb, [facility] [place] [facility] [address] [id number] [place] [address]- 7498 Feb, [facility] [place] [facility] [address] [id number] [place] [address]- 4806 Feb, [facility] [place] [facility] [address] [id number] [place] [address]- 3083 18 Feb, 2013 [facility] [place] [facility] [address] [id number] [place] [address]- 5131 18 Feb, 2013 [facility] [place] [facility] [address] [id number] [place] [address]- 3179 12 Feb, 2013 [facility] [place] [facility] [address] [id number] [place] [address]- 7564 12 Feb, 2013 [facility] [place] [facility] [address] [id number] [place] [address]- 3591 15 Jan, 2013 [facility] [place] [facility] [address] [id number] [place] [address]- 9033 15 Jan, 2013 [facility] [place] [facility] [address] [id number] [place] [address]- 7087 14 Jan, 2013 [facility] [place] [facility] [address] [id number] [place] [address]- 3285 Jan, [facility] [place] [facility] [address] [id number] [place] [address]- 7471 18 Dec, 2012 [facility] [place] [facility] [address] [id number] [place] [address] 0682 Dec, [facility] [place] [facility] [address] [id number] [place] [address] 5299 Dec, [facility] [place] [facility] [address] [id number] [place] [address]- 2232 Nov, [facility] [place] [facility] [address] [id number] [place] [address]- 2106 Nov, [facility] [place] [facility] [address] [id number] [place] [address]- 2517 Oct, [facility] [place] [facility] [address] [id number] [place] [address]- 8102 Oct, [facility] [place] [facility] [address] [id number], [place] [address] Oct, [facility] [place] [facility] [address] [id number] [place] [address]- 2744 Sep, [facility] [place] [facility] [address] [id number] [place] [address]- 7824 Sep, [facility] [place] [facility] [address] [id number], [place] [address]60 Sep, [facility] [place] [facility] [address] [id number], [place] [address]- [address] Sep, [facility] [place] [facility] [address] [id number] [place] [address]- 2903 Sep, [facility] [place] [facility] [address] [id number], [place] [address] Sep, [facility] [place] [facility] [address] [id number] [place] [address]- 1060 August, [facility] [place] [facility] [address] [id number] [place] [address]- 0891 August, [facility] [address] [id number] [place] [address] August, [facility] [address] [id number] [place] [address]- [address] August, [facility] [address] [id number] [place] [address] 9443 August, [facility] [address] [id number] [place] [address]- 1488 August, [facility] [address] [id number] [place] [address]- 1720 August, [facility] [address] [id number] [place] [address] 5010 Jul, [facility] [address] [id number] [place] [address]- 1589 Jul, [facility] [address] [id number] [place] [address]- 2101 Jun, [facility] [address] [id number] [place] [address]- 4925 Jun, [facility] [address] [id number] [place] [address]- 3275 May, [facility] [address] [id number] [place] [address]- 1713 May, [facility] [address] [id number] [place] [address]- 8423 Apr, [facility] [address] [id number] [place] [address]- 7061 Mar, [facility] [address] [id number] [place] [address]- 2674 Mar, [facility] [address] [id number] [place] [address] Mar, [facility] [place] [facility] [address] [id number] [place] [address]- 4596 Mar, [facility] [place] [facility] [address] [id number] [place] [address]- 6216 Mar, [facility] [place] [facility] [address] [id number] [place] [address] Mar, [facility] [place] [facility] [address] [id number] [place] [address]- 0161 Feb, [facility] [place] [facility] [address] [id number] [place] [address]- 0102 Feb, [facility] [place] [facility] [address] [id number] [place] [address]- 6609 Feb, [facility] [place] [facility] [address] [facility] [id number] [place] [address]- 5022 Feb, [facility] [place] [facility] [address] [id number], [place] [address] 7616 Feb, [facility] [place] [facility] [address] [facility] [id number], [place] [address]- 2633 Feb, [facility] [place] [facility] [address] [facility] [id number], [place] [address]- 2252 Feb, [facility] [place] [facility] [address] [facility] [id number], [place] [address]- 6410 Feb, [facility] [place] [facility] [address] [id number], [place] [address]- 6269 Jan, [facility] [place] [facility] [address] [id number], [place] [address]- 3082 Jan, [facility] [place] [facility] [address] [id number], [place] [address]- 9601 Dec, [facility] [place] [facility] [address] [facility] [id number][place] 5740 Dec, [facility] [place] [facility] [address] [id number], [place] [address]- 3400 Dec, [facility] [place] [facility] [address] [id number] [place] [address]- 3626 Dec, [facility] [place] [facility] [address] [id number] [place] [address]- 9326 Dec, [facility] [place] [facility] [address] [id number] [place] [address]- 9760 Nov, [facility] [place] [facility] [address] [id number] [place] [address]- 4938 Oct, [facility] [place] [facility] [address] [id number] [place] [address]- 4582 Oct, [facility] [place] [facility] [address] [id number] [place] [address]- 5422 Sep, [facility] [place] [facility] [address] [facility] [id number] [place] [address]- 1485 Sep, [facility] [place] [facility] [address] [id number] [place] [address]- 1572 Sep, [facility] [place] [facility] [address] [id number] [place] [address]- 4124 Sep, [facility] [place] [facility] [address] [facility] [id number] [place] [address]- 2532 Sep, [facility] [place] [facility] [address] [id number] [place] [address]- 1029 Sep, [facility] [place] [facility] [address] [id number] [place] [address]- 6241 Sep, [facility] [place] [facility] [address] [id number] [place] [address]- 9594 Sep, [facility] [place] [facility] [address] [facility] [id number] [place] [address]- 1796 August, [facility] [place] [facility] [address] [facility] [id number] [place] [address]- 5957 August, [facility] [place] [facility] [address] [id number] [place] [address]- 2174 August, [facility] [address] [id number] [place] [address]- 7447 Jul, [facility] [place] [facility] [address] [id number] [place] [address] 2546 Jul, [facility] [place] [facility] [address] [id number] [place] [address]- 6149 Jun, [facility] [place] [facility] [address] [id number] [place] [address]- 2018 Jun, [facility] [place] [facility] [address] [id number] [place] [address]- 6756 Jun, [facility] [place] [facility] [address] [id number] [place] [address]- 9227 Jun, [facility] [place] [facility] [address] [id number] [place] [address]- 7020 May, [facility] [place] [facility] [address] [id number] [place] [address]- 4274 May, [facility] [place] [facility] [address] [id number] [place] [address]- 1721 Apr, [facility] [place] [facility] [address] [id number] [place] [address]- 2808 Apr, [facility] [place] [facility] [address] [id number] [place] [address]- 6549 Apr, [facility] [place] [facility] [address] [id number] [place] [address]- 1519 14 Mar, 2011 [facility] [place] [facility] [address] [id number] [place] [address]- 8626 09 Mar, 2011 [facility] [place] [facility] [address] [id number] [place] [address]- 2546 07 Mar, 2011 [facility] [place] [facility] [address] [id number] [place] [address]- 4639 Feb, [facility] [place] [facility] [address] [id number] [place] [address]- 6340 Feb, [facility] [place] [facility] [address] [id number] [place] [address]- 3471 Feb, [facility] [place] [facility] [address] [facility] [id number] [place] [address]- 0455 Feb, [facility] [place] [facility] [address] [id number] [place] [address]- 4474 Jan, [facility] [place] [facility] [address] [id number] [place] [address]- 1842 14 Jan, 2011 [facility] [place] [facility] [address] [id number] [place] [address]- 6778 Jan, [facility] [place] [facility] [address] [id number] [place] [address]- 4627 16 Dec, 2010 [facility] [place] [facility] [address] [id number], [place] [address]- 0521 Oct, [facility] [place] [facility] [address] [id number], [place] [address]- 6257 Mar, [facility] [place] [facility] [address] [id number], [place] [address]- 5838 Feb, [facility] [place] [facility] [address] [id number], [place] [address]- 2620 Feb, [facility] [place] [facility] [address] [id number], [place] [address]- 7970 May, [facility] [place] [facility] [address] [id number] [place] [address]- 6957 Apr, [facility] [place] [facility] [address] [facility] [id number], [place] [address]- 0810 Mar, [facility] [place] [facility] [address] [id number], [place] [address]- 5429 30 Jan, 2009 [facility] [place] [facility] [address] [facility] [id number] [place] [address] 2546 Oct, [facility] [address] [facility] [id number], [place] [address]- 9652 Jul, [facility] [address] [id number], [place] [address] 2546 Mar, [facility] [address] [facility] [id number], [place] [address]- 4157 Feb, [facility] [address] [facility] [id number], [place] [address]- 3394 Jan, IMMUNIZATIONS No Known Immunizations SOCIAL HISTORY Never Assessed REASON FOR VISIT DME PLAN OF CARE VITAL SIGNS MEDICATIONS Unknown [...]
--- OUTSIDE RECORDS SUMMARY | 2018-07-05 12:35 | XMS REPORT ---
Author Author KATHYA FISCHER [facility] Address [address] [place] [address] Care Team Providers Care Mailing Specialist Name Role Phone KATHYA FISCHER Unavailable PROBLEMS Type Condition ICD9-CM Code ZZH28-ZM Code Onset Dates Condition Status SNOMED Code Problem Arthritis M19.90 Active 0770989 Problem 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 Active 41220327 Problem Polyneuropathy G62.9 Active 27776016 Problem Other male erectile dysfunction N52.8 Active 781063711 Problem Constipation K59.00 Active 84772846 Problem Type 2 diabetes mellitus with 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 E11.65 Active 552111391 Problem Controlled type 2 diabetes mellitus without complication, without long -term current use of insulin E11.9 Active 003168227 Problem care home current use of insulin Z79.4 Active 226954097 Problem Neuropathy G62.9 Active 124493899 Problem Obstructive sleep apnea G47.33 Active 98767850 Problem Hypertension, benign I10 Active 31109878 Problem Uncontrolled type 2 diabetes mellitus without complication, without long-term current use of insulin E11.65 Active 382950221 Problem Stress incontinence of urine N39.3 Active 90039770 Problem Fibromyalgia M79.7 Active 129285481 ALLERGIES Substance Reaction Event Type Date Status Zinc Unknown Drug Allergy Oct, Active Lasix Unknown Drug Allergy Oct, Active Cozaar Unknown Drug Allergy Oct, Active SulfADIAZINE Unknown Drug Allergy Oct, Active Nabumetone Unknown Drug Allergy Oct, Active Androgel Unknown [...] Oct, Active ENCOUNTERS Encounter Location Date Diagnosis [place] [address] [address]- [address] Dec, [place] [address] 32205- 9912 Nov, [place] [address] 39173- 7049 Nov, Therapeutic drug monitoring Z51.81 [place] [address] 29140- 3620 Nov, [place] [address] 37888- 2369 Nov, Therapeutic drug monitoring Z51.81 ; Fibromyalgia M79.7 and Controlled type 2 diabetes mellitus without complication, without long-term current use of insulin E11.9 [place] [address] 69493- 3705 Nov, Type 2 diabetes mellitus with 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 E11.65 [place] [address] 53489- 6012 Nov, [place] [address] 48616- 4333 Nov, [place] [address] 65086- 9872 Nov, Type 2 diabetes mellitus with 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 E11.65 [place] [address] [place] [id number] [place] [address] 83364- 9426 Nov, [place] [address] 94475- 9866 Nov, [place] [address] 20840- 8755 Nov, Constipation K59.00 [place] [address] 83994- 0436 Oct, Diabetes type 2, controlled E11.9 [facility] [address] [facility] [id number], [place] [address] 8177 Oct, Type 2 diabetes mellitus with 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 E11.65 ; care home current use of insulin Z79.4 and Neuropathy G62.9 [facility] [address] [facility] [id number] [place] [address]- 1149 Oct, [facility] [address] [facility] [id number], [place] [address]- 0164 Oct, [facility] [address] [facility] [id number] [place] [address]- 8003 Oct, [facility] [address] [facility] [id number], [place] [address]- 0848 Oct, [facility] [address], [place] [address] 3262 Oct, [facility] [address] [id number], [place] [address] 2451 Oct, [facility] [address] [facility] [id number], [place] [address]- 6356 Oct, [facility] [address], [place] [address]- 0626 Sep, [facility] [address], [place] [address]- 7454 Sep, Uncontrolled type 2 diabetes mellitus without complication, without long-term current use of insulin E11.65 [facility] [address] [facility] [id number], [place] [address]- 0223 Sep, Hypertension, benign I10 ; Fibromyalgia M79.7 ; Uncontrolled type 2 diabetes mellitus without complication, without long-term current use of insulin E11.65 and Controlled type 2 diabetes mellitus without complication, without long-term current use of insulin E11.9 [facility] [address] [id number], [place] [address]- 3311 Sep, [facility] [address], [place] [address]- 2145 Sep, Uncontrolled type 2 diabetes mellitus without complication, without long-term current use of insulin E11.65 [facility] [address] [place] [id number] [place] [address] 64920- 5736 Sep, [facility] [address] [place] [id number] [place] [address] 48878- 4126 Sep, [facility] [address] [place] [id number] [place] [address] 04112 2540 Sep, Uncontrolled type 2 diabetes mellitus without complication, without long-term current use of insulin E11.65 and Fibromyalgia M79.7 [place] [address] [place] [id number] [place] [address] 99464- 9256 August, [place] [address] [place] [id number] [place] [address] 73077- 6860 August, [place] [address] [place] [id number] [place] [address] 34178- 0824 August, [facility] [address] [place] [id number] [place] [address] 64974- 3030 August, Fibromyalgia M79.7 [facility] [address] [place] [id number] [place] [address] 22946- 8900 Jul, Hypertension, benign I10 [place] [address] [place] [id number] [place] [address] 45419 2543 Jul, Fibromyalgia M79.7 [facility] [id number] [place] [address] 76771 2543 Jul, [facility] [address] [place] [id number] [place] [address] 94264- 5716 Jun, [facility] [address] [place] [id number] [place] [address] 81647 2545 Jun, Hypertension, benign I10 ; Arthritis M19.90 ; care home current use 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 Z79.891 and Uncontrolled type 2 diabetes mellitus without complication, without long-term current use of insulin E11.65 [facility] [address] [place] [address] 58471 -3594 Jun, Acute nasopharyngitis J00 and BMI 50.0-59.9, adult Z68.43 [facility] [address] [place] [id number] [place] [address] 91149- 2571 Jun, Fibromyalgia M79.7 [facility] [address] 10558 2546 May, [facility] [address] 15122- 6210 May, Fibromyalgia M79.7 [facility] [address] [place] [id number] [place] [address] 36763- 8813 Apr, Fibromyalgia M79.7 [facility] [address] [place] [id number] [place] [address] 90507- 8855 Apr, [facility] [address] [place] [id number] [place] [address] 56441- 2416 Apr, [facility] [address] [place] [id number] [place] [address] 73925- 4700 Apr, Arthritis M19.90 [facility] [address] [place] [id number] [place] [address] 98019- 6839 Apr, Arthritis M19.90 [facility] [address] [place] [id number] [place] [address] 46851 2542 Apr, Arthritis M19.90 and Controlled type 2 diabetes mellitus without complication, without long-term current use of insulin E11.9 [facility] [address] [place] [id number] [place] [address] 56007- 8154 Apr, [facility] [address] [place] [id number] [place] [address] 07861- 2548 Apr, Fibromyalgia M79.7 [facility] [address] [place] [id number] [place] [address] 68938- 2023 Mar, [facility] [address] [place] [id number] [place] [address] 78850- 7569 Mar, [facility] [address] 15051- 1482 Mar, Fibromyalgia M79.7 [facility] [address] [place] [id number] [place] [address] 37524- 2857 Feb, [facility] [address] 70946- 6762 Feb, [facility] [address] [place] [id number] [place] [address] 65432- 0954 Feb, [facility] [address] 13141- 9738 Feb, Fibromyalgia M79.7 [facility] [address] [place] [id number] [place] [address] 46328- 8475 Feb, Diabetes type 2, uncontrolled E11.65 and Encounter for immunization Z23 [facility] [address] [place] [id number] [place] [address] 24832- 7518 Jan, [facility] [address] 95980- 2417 Jan, Fibromyalgia M79.7 [facility] [address] [place] [id number] [place] [address] 16561- 1406 Dec, [facility] [address] [place] [id number] [place] [address] 87429- 1918 Dec, Fibromyalgia M79.7 [facility] [address] [place] [id number] [place] [address] 41116- 6040 Nov, [facility] [address] [place] [id number] [place] [address] 48909- 4834 Nov, [facility] [address] [place] [id number] [place] [address] 61929- 6382 Nov, 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 [id number], [place] [address]- 7405 Nov, [facility] [address] [place] [id number] [place] [address] 33036- 8286 Nov, [facility] [address] [facility] [id number] [place] [address] 21397- 5526 Oct, Diabetes type 2, uncontrolled E11.65 [facility] [address] [place] [id number] [place] [address] 20242- 5989 Oct, Diabetes type 2, uncontrolled E11.65 ; Polyneuropathy G62.9 and Pain in right wrist M25.531 [facility] [address] [place] [id number] [place] [address] 77322- 5446 Oct, [facility] [address] [place] [id number] [place] [address] 93878- 1297 Oct, Pain in left shoulder M25.512 [facility] [address] [place] [id number] [place] [address] 49998- 4053 Sep, [facility] [address] [place] [id number] [place] [address] 14149- 0029 Sep, Pain in left shoulder M25.512 [facility] [address] [place] [address] 26556- 1945 Sep, [facility] [address] [place] [address] 20868- 7967 August, Pain in left shoulder M25.512 [facility] [address] [id number], [place] [address]- 9264 Jul, [facility] [address] [place] [id number] [place] [address] 44885- 5476 Jul, [facility] [address] [facility] [id number], [place] [address]- 7399 Jul, Pain in left shoulder M25.512 [facility] [address] [place] [id number] [place] [address] 56926- 1774 Jun, [facility] [address], [place] [address]- 5925 Jun, [facility] [address] [place] [id number] [place] [address] 42589- 9741 Jun, Diabetes type 2, uncontrolled E11.65 ; Fibromyalgia M79.7 and Arthritis M19.90 [facility] [address] [place] [id number] [place] [address] 88452- 6079 Jun, Pain in left shoulder M25.512 [facility] [address] [place] [id number] [place] [address] 08550- 0102 May, [place] [address] [place] [id number] [place] [address] 16751- 6079 May, Diabetes type 2, controlled E11.9 [place] [address] [place] [id number] [place] [address] 85374- 2867 May, [facility] [address] [place] [id number] [place] [address] 63489- 6500 May, Uncontrolled type 2 diabetes mellitus without complication, without long-term current use of insulin E11.65 [facility] [address], [place] [address]- 9476 15 May, 2016 Pain in left shoulder M25.512 [facility] [address], [place] [address]- 2601 03 May, 2016 Diabetes type 2, controlled E11.9 and Uncontrolled type 2 diabetes mellitus without complication, without long-term current use of insulin E11.65 [facility] [address], [place] [address]- 0746 Apr, [place] [address] [place] [id number] [place] [address] 97809- 3119 Apr, [facility] [address], [place] [address]- 4292 Mar, [place] [address] [id number] [place] [address]- 2184 Mar, [facility] [address] [id number] [place] [address]- 4347 Mar, [facility] [address] [id number] [place] [address]- 2709 Feb, [facility] [address] [id number] [address] Feb, Dental examination Z01.20 [facility] [address] [id number] [place] [address]- 6631 Jan, [facility] [address] [id number] [place] [address]- 3574 14 Dec, 2015 [facility] [address] [facility] [id number] [place] [address]- 7681 Dec, [facility] [address] [id number], [place] [address]- 1259 Dec, [facility] [address] [facility] [id number] [place] [address]- 5121 Dec, Diabetes type 2, controlled E11.9 [facility] [address] [id number] [place] [address]- 2511 Nov, [facility] [address] [id number], [place] [address]- 2876 Nov, [facility] [address] [id number], [place] [address]- 5603 Nov, [facility] [address] [id number] [place] [address]- 5842 Nov, [facility] [address] [id number] [place] [address]- 1403 Oct, [facility] [address] [id number] [place] [address]- 3577 Oct, [facility] [address], [place] [address]- 3030 Oct, [facility] [address] [facility] [id number], [place] [address]- 8389 Sep, [facility] [address] [facility] [id number], [place] [address]- 2544 Sep, Diabetes type 2, controlled E11.9 [facility] [address] [place] [id number] [place] [address] 00989 2542 Sep, Diabetes type 2, controlled E11.9 [facility] [address] [place] [address]- 9481 August, [facility] [address] [place] [id number] [place] [address] 23387- 0622 August, [facility] [address] [place] [address]- 3067 August, Type 2 diabetes mellitus without complication E11.9 and Pain in left shoulder M25.512 [facility] [address], [place] [address]- 9142 Jul, [facility] [address] [place] [id number] [place] [address] 73165- 6470 Jul, Diabetes type 2, controlled E11.9 and Hypertension, benign I10 [facility] [address], [place] [address]- 9276 Jun, [facility] [address], [place] [address]- 6040 Jun, [facility] [address], [place] [address]- 6875 Jun, Diabetes 250.00 [facility] [address] [place] [address]- 2546 Jun, [facility] [address] [id number], [place] [address]- 6751 May, Diabetes type 2, uncontrolled E11.65 [facility] [address] [place] [id number] [place] [address] 00885- 9069 May, [facility] [address] [place] [id number] [place] [address] 80007- 6931 Apr, Type 2 diabetes mellitus without complication E11.9 [facility] [address] [place] [id number] [place] [address] 40416- 2144 Apr, Encounter for immunization Z23 [facility] [address] [place] [id number] [place] [address] 90585- 5394 Apr, [facility] [address] [place] [id number] [place] [address] 40157- 8697 Mar, [facility] [address] [place] [id number] [place] [address] 15534- 4523 Mar, [facility] [address] [place] [id number] [place] [address] 89535- 4786 Mar, [facility] [address] [place] [id number] [place] [address] 95069- 3967 Feb, [facility] [address] [place] [id number] [place] [address] 45572- 3579 Jan, [facility] [address] [place] [id number] [place] [address] 64698- 6542 Jan, [facility] [address] [place] [id number] [place] [address] 72174- 1123 Jan, [facility] [address] [place] [id number] [place] [address] 22939- 1852 Dec, Diabetes 250.00 and COPD (chronic obstructive pulmonary disease) 496 [facility] [address] [place] [id number] [place] [address] 65756- 1014 Dec, [facility] [address] [place] [id number] [place] [address] 88366- 1556 Dec, [facility] [address] [place] [id number] [place] [address] 35625- 7780 Nov, [facility] [address] [id number] 3760 Oct, Diabetes 250.00 [facility] [address], [place] [address]- 4116 Sep, [facility] [address] 6628 Sep, [facility] [address], [place] [address]- 6231 Sep, [facility] [address], [place] [address]- 7796 Sep, Diabetes 250.00 [facility] [address]- 6357 Sep, [facility] [address]- 3678 Sep, [facility] [address] 9614 August, Hypertension, essential, benign 401.1 ; Coronary atherosclerosis of [place] coronary artery 414.01 and Diabetic neuropathy associated with type 2 diabetes mellitus 250.60 [facility] [address], [place] [address]- 7889 Jul, [facility] [address], [place] [address]- 9733 Jul, [facility] [address], [place] [address]- 0707 Jul, [facility] [address], [place] [address]- 6005 Jun, [facility] [address]- 2159 Jun, [facility] [address] [place] [id number] 0160 Jun, [facility] [address] [place] [id number] [place] [address]- 2213 Jun, [facility] [place] [facility] [address] [id number] [place] [address]- 0492 Jun, [facility] [place] [facility] [address] [id number] [place] [address]- 3167 May, 2014 [facility] [place] [facility] [address] [id number] [place] [address]- 6196 May, 2014 [facility] [place] [facility] [address] [id number] [place] [address]- 2418 May, 2014 [facility] [place] [facility] [address] [id number] [place] [address]- 9157 May, 2014 [facility] [place] [facility] [address] [facility] [id number] [place] [address]- 5570 May, 2014 [facility] [place] [facility] [address] [facility] [id number] [place] [address]- 5130 May, 2014 [facility] [place] [facility] [address] [id number] [place] [address]- 2039 May, [facility] [place] [facility] [address] [facility] [id number] [place] [address]- 4781 Apr, [facility] [place] [facility] [address] [facility] [id number] [place] [address]- 8697 Apr, [facility] [place] [facility] [address] [id number] [place] [address] Apr, [facility] [place] [facility] [address] [id number] [place] [address] Apr, [facility] [place] [facility] [address] [id number] [place] [address] Mar, [facility] [place] [facility] [address] [id number] [place] [address] Mar, [facility] [place] [facility] [address] [id number] [place] [address] Mar, [facility] [place] [facility] [address] [id number] [place] [address] Mar, [facility] [place] [facility] [address] [id number] [place] [address] Feb, [facility] [place] [facility] [address] [id number] [place] [address] Feb, [facility] [place] [facility] [address] [id number] [place] [address] Feb, [facility] [place] [facility] [address] [id number] [place] [address] Feb, [facility] [place] [facility] [address] [id number] [place] [address] Feb, [facility] [place] [facility] [address] [id number] [place] [address] Feb, [facility] [place] [facility] [address] [id number] [place] [address] Feb, [facility] [place] [facility] [address] [id number] [place] [address] Jan, [facility] [place] [facility] [address] [id number] [place] [address] Jan, [facility] [place] [facility] [address] [id number] [place] [address] Dec, [facility] [place] [facility] [address] [id number] [place] [address] Dec, [facility] [place] [facility] [address] [id number] [place] [address] 10 Dec, 2013 [facility] [place] [facility] [address] [id number] [place] [address] Dec, [facility] [place] [facility] [address] [id number] [place] [address] Dec, [facility] [place] [facility] [address] [id number] [place] [address] 04 Dec, 2013 [facility] [place] [facility] [address] [id number] [place] [address] Dec, [facility] [place] [facility] [address] [id number] [place] [address] Dec, [facility] [place] [facility] [address] [id number] [place] [address] Nov, [facility] [place] [facility] [address] [id number] [place] [address] Nov, [facility] [place] [facility] [address] [id number] [place] [address] Nov, [facility] [place] [facility] [address] [id number] [place] [address] Nov, [facility] [place] [facility] [address] [id number] [place] [address] Oct, [facility] [place] [facility] [address] [id number] [place] [address] Oct, [facility] [place] [facility] [address] [id number] [place] [address] Oct, [facility] [place] [facility] [address] [id number] [place] [place] [address] Oct, [facility] [place] [facility] [address] [id number] [place] [address] Oct, [facility] [place] [facility] [address] [id number] [place] [address] 0352 Oct, [facility] [place] [facility] [address] [id number] [place] [address] 5820 Oct, [facility] [place] [facility] [address] [id number] [place] [address] 2360 Oct, [facility] [place] [facility] [address] [id number] [place] [address] Sep, [facility] [place] [facility] [address] [id number] [place] [address] 8898 Sep, [facility] [place] [facility] [address] [id number] [place] [address] August, [facility] [place] [facility] [address] [id number] [place] [address]- 5692 August, [facility] [place] [facility] [address] [id number] [place] [address] 3511 Jul, [facility] [place] [facility] [address] [id number] [place] [address] 7695 Jul, [facility] [place] [facility] [address] [id number] [place] [address] 4[address] Jul, [facility] [place] [facility] [address] [id number] [place] [address] 5918 Jul, [facility] [place] [facility] [address] [id number] [place] [address]- 0797 Jul, [facility] [place] [facility] [address] [id number] [place] [address] 3426 Jul, [facility] [place] [facility] [address] [id number] [place] [address]- 1016 Jul, [facility] [place] [facility] [address] [id number] [place] [address]- 3863 Jul, [facility] [place] [facility] [address] [id number] [place] [address]- 09[address] Jun, [facility] [place] [facility] [address] [id number] [place] [address]- 2474 Jun, [facility] [place] [facility] [address] [id number] [place] [address]- 2059 Jun, [facility] [place] [facility] [address] [id number] [place] [address]- 1527 Jun, [facility] [place] [facility] [address] [id number], [place] [address] 18 May, 2013 [facility] [address] [id number] [place] [address]- 0656 May, [facility] [address] [id number] [place] [address]- 2795 Apr, [facility] [address] [facility] [id number] [place] [address]- 3925 Apr, [facility] [place] [facility] [address] [id number] [place] [address]- 6573 Mar, [facility] [address] [id number] [place] [address]- 5121 Mar, [facility] [address] [facility] [id number] [place] [address]- 6531 Mar, [facility] [address] [facility] [id number] [place] [address]- 3069 Mar, [facility] [address] [id number] [place] [address]- 6320 Mar, [facility] [address] [id number] [place] [address]- 0917 Mar, [facility] [address] [facility] [id number] [place] [address]- 5914 Feb, [facility] [address] [id number] [place] [address]- 6784 Feb, [facility] [place] [facility] [address] [id number], [place] [address]- [address] Feb, [facility] [place] [facility] [address] [id number] [place] [address]- 8194 Feb, [facility] [place] [facility] [address] [facility] [id number] [place] [address]- 8536 Feb, [facility] [place] [facility] [address] [facility] [id number], [place] [address]- 5977 Feb, [facility] [place] [facility] [address] [id number] [place] [address]- 5375 Feb, [facility] [place] [facility] [address] [id number] [place] [address]- 1593 Feb, [facility] [place] [facility] [address] [id number] [place] [address]- 3865 15 Jan, 2013 [facility] [place] [facility] [address] [id number] [place] [address]- 4139 15 Jan, 2013 [facility] [place] [facility] [address] [id number] [place] [address]- 3326 14 Jan, 2013 [facility] [place] [facility] [address] [id number] [place] [address]- 5299 14 Jan, 2013 [facility] [place] [facility] [address] [id number] [place] [address]- 1086 18 Dec, 2012 [facility] [place] [facility] [address] [id number] [place] [address]- 5294 Dec, [facility] [place] [facility] [address] [id number] [place] [address] 2012 [facility] [place] [facility] [address] [id number] [place] [address]- 8367 Nov, [facility] [place] [facility] [address] [id number] [place] [address]- 9308 Nov, [facility] [place] [facility] [address] [id number] [place] [address]- 2885 Oct, [facility] [place] [facility] [address] [id number] [place] [address]- 5704 Oct, [facility] [place] [facility] [address] [id number] [place] [address]- 0888 Oct, [facility] [place] [facility] [address] [id number] [place] [address]- 5829 Sep, [facility] [place] [facility] [address] [id number] [place] [address]- 6621 Sep, [facility] [address] [id number] [place] [address]- 8358 Sep, [facility] [place] [facility] [address] [id number] [place] [address]- 9465 Sep, [facility] [place] [facility] [address] [id number] [place] [address]- 9173 Sep, [facility] [place] [facility] [address] [id number] [place] [address]- 5672 Sep, [facility] [address] [id number] [place] [address]- 1298 August, [facility] [place] [facility] [address] [id number] [place] [address]- 0774 August, [facility] [address] [id number] [place] [address]- 5398 August, [facility] [place] [facility] [address] [id number] [place] [address]- 2849 August, [facility] [address] [id number] [place] [address]- 4889 August, [facility] [place] [facility] [address] [id number] [place] [address]- 1770 August, [facility] [place] [facility] [address] [id number] [place] [address]- 1572 August, [facility] [place] [facility] [address] [id number] [place] [address]- 3235 Jul, [facility] [place] [facility] [address] [id number] [place] [address]- 3590 Jul, [facility] [place] [facility] [address] [id number] [place] [address]- 8353 Jun, [facility] [place] [facility] [address] [id number] [place] [address]- 3509 Jun, [facility] [place] [facility] [address] [id number] [place] [address]- 6014 May, [facility] [address] [id number] [place] [address]- 4346 May, [facility] [address] [id number] [place] [address]- 9556 Apr, [facility] [address] [id number] [place] [address]- 9508 Mar, [facility] [address] [id number] [place] [address]- 2629 Mar, [facility] [address] [id number] [place] [address]- 6627 Mar, [facility] [address] [id number] [place] [address]- 2145 Mar, [facility] [address] [id number] [place] [address]- 1674 Mar, [facility] [address] [id number] [place] [address]- 6106 Mar, [facility] [address] [id number] [place] [address]- 6607 Feb, [facility] [address] [id number] [place] [address]- 5521 Feb, [facility] [address] [id number] [place] [address]- 1010 Feb, [facility] [address] [id number] [place] [address]- 2542 Feb, [facility] [place] [facility] [address] [id number] [place] [address]- 6559 Feb, [facility] [address] [id number] [place] [address]- 2476 Feb, [facility] [address] [id number] [place] [address]- 4002 Feb, [facility] [place] [facility] [address] [id number] [place] [address]- 5587 Feb, [facility] [place] [facility] [address] [id number] [place] [address]- 4046 Jan, [facility] [place] [facility] [address] [id number] [place] Jan, [facility] [place] [facility] [address] [id number] [place] [address]- 8606 28 Dec, 2011 [facility] [place] [facility] [address] [id number] [place] [address]- 2718 Dec, [facility] [place] [facility] [address] [id number] [place] [address]- 1279 Dec, [facility] [place] [facility] [address] [id number] [place] [address]- 9526 Dec, [facility] [place] [facility] [address] [id number] [place] [address]- 2703 Dec, [facility] [place] [facility] [address] [id number] [place] [address]- 3980 Nov, [facility] [place] [facility] [address] [facility] [id number], [place] [address]- 9079 Oct, [facility] [place] [facility] [address] [id number], [place] [address]- 6597 Oct, [facility] [place] [facility] [address] [id number], [place] [address]- 3331 Sep, [facility] [place] [facility] [address] [id number] [place] [address]- 2106 Sep, [facility] [place] [facility] [address] [id number] [place] [address]- 8147 Sep, [facility] [place] [facility] [address] [facility] [id number], [place] [address]- 2102 Sep, [facility] [place] [facility] [address] [id number], [place] [address]- 6148 Sep, [facility] [address] [id number] [place] [address]- 6973 Sep, [facility] [place] [facility] [address] [id number] [place] [address]- 8510 Sep, [facility] [place] [facility] [address] [id number] [place] [address]- 6940 Sep, [facility] [place] [facility] [address] [id number] [place] [address]- 5428 August, [facility] [place] [facility] [address] [id number] [place] [address]- 4785 August, [facility] [place] [facility] [address] [id number] [place] [address]- 8172 August, [facility] [id number] [place] [address]- 8692 Jul, [facility] [place] [facility] [address] [id number] [place] [address]- 4744 Jul, [facility] [place] [facility] [address] [id number] [place] [address]- 4864 Jun, [facility] [place] [facility] [address] [id number] [place] [address]- 1907 Jun, [facility] [place] [facility] [address] [id number] [place] [address]- 7047 Jun, [facility] [place] [facility] [address] [facility] [id number] [place] [address]- 4643 Jun, [facility] [place] [facility] [address] [id number] [place] [address]- 4438 May, [facility] [place] [facility] [address] [id number] [place] [address]- 5032 May, [facility] [place] [facility] [address] [id number] [place] [address]- 7516 Apr, [facility] [place] [facility] [address] [id number] [place] [address]- 5809 Apr, [facility] [place] [facility] [address] [id number] [place] [address]- 1665 Apr, [facility] [place] [facility] [address] [id number] [place] [address]- 5363 Mar, [facility] [place] [facility] [address] [id number] [place] [address]- 4824 Mar, [facility] [place] [facility] [address] [id number] [place] [address]- 5098 Mar, [facility] [place] [facility] [address] [id number] [place] [address]- 5541 Feb, [facility] [place] [facility] [address] [id number] [place] [address]- 5750 Feb, [facility] [place] [facility] [address] [id number] [place] [address]- 6744 Feb, [facility] [place] [facility] [address] [id number] [place] [address]- 1984 Feb, [facility] [place] [facility] [address] [id number] [place] [address]- 6297 Jan, [facility] [place] [facility] [address] [id number] [place] [address]- 0747 Jan, [facility] [place] [facility] [address] [id number] [place] [address]- 6627 Jan, [facility] [place] [facility] [address] [id number] [place] [address]- 2743 16 Dec, 2010 [facility] [place] [facility] [address] [id number] [place] [address]- 0010 Oct, [facility] [place] [facility] [address] [id number] [place] [address]- 3293 Mar, [facility] [place] [facility] [address] [id number] [place] [address]- 2213 Feb, [facility] [address] [id number], [place] [address]- 8475 Feb, [facility] [id number], [place] [address]- 1486 May, [facility] [id number], [place] [address]- 1444 Apr, [facility] [id number], [place] [address]- 6576 Mar, [facility] [id number], [place] [address]- 8871 Jan, [facility] [id number], [place] [address]- 5703 Oct, [facility] [id number], [place] [address]- 3443 Jul, [facility] [id number], [place] [address]- 2045 Mar, [facility] [address] [id number], [place] [address]- 2448 Feb, [facility] [address] [id number], [place] [address]- 4794 Jan, IMMUNIZATIONS No Known Immunizations SOCIAL HISTORY [...]
--- OUTSIDE RECORDS SUMMARY | 2018-07-05 12:36 | XMS REPORT ---
Author Author KATHYA FISCHER [facility] Address [address] [place] [address] Care Team Providers Care Deli/Bakery Associate Name Role Phone KATHYA FISCHER Unavailable PROBLEMS Type Condition ICD9-CM Code PMQ38-GL Code Onset Dates Condition Status SNOMED Code Problem Arthritis M19.90 Active 7366515 Problem 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 Active 04203067 Problem Polyneuropathy G62.9 Active 37351099 Problem Other male erectile dysfunction N52.8 Active 752032438 Problem Constipation K59.00 Active 54383785 Problem Type 2 diabetes mellitus with 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 E11.65 Active 448384133 Problem Controlled type 2 diabetes mellitus without complication, without long -term current use of insulin E11.9 Active 087942633 Problem MCC current use of insulin Z79.4 Active 013025218 Problem Neuropathy G62.9 Active 422165358 Problem Obstructive sleep apnea G47.33 Active 72969532 Problem Hypertension, benign I10 Active 68310292 Problem Uncontrolled type 2 diabetes mellitus without complication, without long-term current use of insulin E11.65 Active 338896407 Problem Stress incontinence of urine N39.3 Active 97056394 Problem Fibromyalgia M79.7 Active 463832436 ALLERGIES Substance Reaction Event Type Date Status Zinc Unknown Drug Allergy Sep, Active Lasix Unknown Drug Allergy Sep, Active Cozaar Unknown Drug Allergy Sep, Active SulfADIAZINE Unknown Drug Allergy Sep, Active Nabumetone Unknown Drug Allergy Sep, Active Androgel Unknown Drug Allergy Sep, Active Wool itching Non Drug Allergy Sep, Active rhubarb Unknown Non Drug Allergy Sep, Active raspberry Unknown Non Drug Allergy Sep, Active equal Unknown Non Drug Allergy Sep, Active sweet and low Unknown Non Drug Allergy Sep, Active horseradish Unknown Non Drug Allergy Sep, Active chromates Unknown Non Drug Allergy Sep, Active latex rash Non Drug Allergy Sep, Active Cyclobenzaprine Hcl Oral Tablet 10 10 Mg Tablet dc'd potential for ss Non Drug Allergy Sep, Active ENCOUNTERS Encounter Location Date Diagnosis [facility] [id number] [place] [address] 17995- 3833 Dec, [facility] [id number] [place] [address] 74991- 3356 Nov, Therapeutic drug monitoring Z51.81 ; Fibromyalgia M79.7 and Controlled type 2 diabetes mellitus without complication, without long-term current use of insulin E11.9 [facility] [id number] [place] [address] 24217- 1855 Nov, [facility] [address] 77696- 5690 Nov, [facility] [id number] [place] [address] 85503- 6439 Nov, [facility] [address] 62938- 5756 Nov, Type 2 diabetes mellitus with 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 E11.65 [facility] [id number] [place] [address] 99021- 9922 Nov, [facility] [id number] [place] [address] 92147- 0352 Nov, [facility] [id number] [place] [address] 11122- 6464 Nov, Constipation K59.00 [facility] [id number] [place] [address] 49668- 0053 Oct, Diabetes type 2, controlled E11.9 [facility] [id number] [place] [address] 33612- 6831 Oct, Type 2 diabetes mellitus with 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 E11.65 ; MCC current use of insulin Z79.4 and Neuropathy G62.9 [facility] [id number] [place] [address] 31873- 5801 Oct, [facility] [address]- 4108 Oct, [facility] [address] 8231 Oct, [facility] [address] 3172 Oct, [facility] [address] [place] [address]- 3208 Oct, [facility] [address]- 3308 Oct, [facility] [address]- 9255 Oct, [facility] [address] [place] [address]- 0846 Sep, [facility] [address] [address]- 4100 Sep, Uncontrolled type 2 diabetes mellitus without complication, without long-term current use of insulin E11.65 [facility] [address] [address]- 7496 Sep, Hypertension, benign I10 ; Fibromyalgia M79.7 ; Controlled type 2 diabetes mellitus without complication, without long-term current use of insulin E11.9 and Uncontrolled type 2 diabetes mellitus without complication, without long-term current use of insulin E11.65 [facility] [address] [address]- 6514 Sep, [facility] [id number] [address]- 3684 Sep, Uncontrolled type 2 diabetes mellitus without complication, without long-term current use of insulin E11.65 [facility] [id number] 4497 Sep, [facility] [id number] [address] 1977 Sep, [facility] [address] [address]- 6543 Sep, Uncontrolled type 2 diabetes mellitus without complication, without long-term current use of insulin E11.65 and Fibromyalgia M79.7 [facility] [id number] [place] [address] 18756- 8853 August, [facility] [id number] [place] [address] 68506- 9537 August, [facility] [id number] [place] [address] 79288- 9256 August, [facility] [id number] [place] [address] 83368- 9735 August, Fibromyalgia M79.7 [facility] [id number] [place] [address] 02879- 7278 Jul, Hypertension, benign I10 [facility] [id number] [place] [address] 81912- 8157 Jul, Fibromyalgia M79.7 [facility] [id number] [place] [address] 20496- 0751 Jul, [facility] [id number] [place] [address] 28898- 7310 Jun, [facility] [id number] [place] [address] 07832- 6523 Jun, Hypertension, benign I10 ; Arthritis M19.90 ; MCC current use 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 Z79.891 and Uncontrolled type 2 diabetes mellitus without complication, without long-term current use of insulin E11.65 [facility] [id number] [place] [address] 61945 -1850 Jun, Acute nasopharyngitis J00 and BMI 50.0-59.9, adult Z68.43 [facility] [id number] [place] [address] 10982- 9859 Jun, Fibromyalgia M79.7 [facility] [address] [address]- 9486 14 May, 2017 [facility] [id number] [place] [address] 59781 2546 02 May, 2017 Fibromyalgia M79.7 [facility] [address] [address] 2546 Apr, Fibromyalgia M79.7 [facility] [id number] [place] [address] 13703 2546 Apr, [facility] [id number] [place] [address] 68768 2546 Apr, [facility] [id number] [place] [address] 74606 2546 Apr, Arthritis M19.90 [facility] [id number] [place] [address] 10565- 1596 Apr, Arthritis M19.90 [facility] [id number] [place] [address] 52330 2547 10 Apr, 2017 Arthritis M19.90 and Controlled type 2 diabetes mellitus without complication, without long-term current use of insulin E11.9 [facility] [address] [address]- 3965 Apr, [facility] [address] [address]- 5816 Apr, Fibromyalgia M79.7 [facility] [address] [address] 2546 Mar, [facility] [address] [address] 2546 Mar, [facility] [address] [address] 2546 Mar, Fibromyalgia M79.7 [facility] [address] [address] 2546 Feb, [facility] [id number] [place] [address] 41920- 9436 Feb, [facility] [address] 72361- 1637 Feb, [facility] [id number] [place] [address] 37584- 5477 Feb, Fibromyalgia M79.7 [facility] [address] 26655- 3752 Feb, Diabetes type 2, uncontrolled E11.65 and Encounter for immunization Z23 [facility] [address] 88534- 8680 Jan, [facility] [address] 05774- 4162 Jan, Fibromyalgia M79.7 [facility] [address] 17865- 2944 Dec, [facility] [id number] [place] [address] 33981- 6307 Dec, Fibromyalgia M79.7 [facility] [id number] [place] [address] 58355- 7932 Nov, [facility] [id number] [place] [address] 16657- 5139 Nov, [facility] [id number] [place] [address] 67548- 1334 Nov, 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 and Polyneuropathy G62.9 [facility] [id number] [place] [address] 69520- 4212 Nov, [facility] [id number] [place] [address] 82531- 4441 Nov, [facility] [id number] [place] [address] 99455- 8131 Oct, Diabetes type 2, uncontrolled E11.65 [facility] [address] [address]- 8690 Oct, Diabetes type 2, uncontrolled E11.65 ; Polyneuropathy G62.9 and Pain in right wrist M25.531 [facility] [address] [address]- 5715 Oct, [facility] [id number] [place] [address] 74470- 2804 Oct, Pain in left shoulder M25.512 [facility] [id number] [place] [address] 16568- 9192 Sep, [facility] [id number] [place] [address] 02016- 1347 Sep, Pain in left shoulder M25.512 [facility] [id number] [place] [address] 72521- 9510 Sep, [facility] [id number] [place] [address] 26939- 1395 August, Pain in left shoulder M25.512 [facility] [address] [address]- 6249 Jul, [facility] [address] [address]- 8471 Jul, [facility] [address] [address]- 9373 Jul, Pain in left shoulder M25.512 [facility] [address] [address]- 4855 Jun, [facility] [id number] [place] [address] 34622- 9106 Jun, [facility] [address] [address]- 7210 Jun, Diabetes type 2, uncontrolled E11.65 ; Fibromyalgia M79.7 and Arthritis M19.90 [facility] [address] [address]- 8792 Jun, Pain in left shoulder M25.512 [facility] [id number] [place] [address] 107665- 6716 May, [facility] [id number] [place] [address] 999191- 3486 May, Diabetes type 2, controlled E11.9 [facility] [id number] [place] [address] 16393- 8146 17 May, 2016 [facility] [id number] [place] [address] 22103- 2563 May, Uncontrolled type 2 diabetes mellitus without complication, without long-term current use of insulin E11.65 [facility] [id number] [place] [address] 71565- 9504 15 May, 2016 Pain in left shoulder M25.512 [facility] [id number] [place] [address] 04161- 6731 03 May, 2016 Diabetes type 2, controlled E11.9 and Uncontrolled type 2 diabetes mellitus without complication, without long-term current use of insulin E11.65 [facility] [id number] [place] [address] 16334- 7449 Apr, [facility] [address] [address]- 0686 Apr, [facility] [id number] [place] [address] 53188- 2285 Mar, [facility] [id number] [place] [address] 55991- 0005 Mar, [facility] [id number] [place] [address] 00523- 9570 Mar, [facility] [address] [address]- 6632 Feb, [facility] [address] [place] [address] [id number] Feb, Dental examination Z01.20 [facility] [address] [id number] [place] [address]- 3812 Jan, [facility] [address] [facility] [id number] [place] 0425 Dec, [facility] [address] [id number] [place] 6093 Dec, [facility] [address] [id number] [place]- 2018 Dec, [facility] [id number] [place] [address], [place]- 8197 Dec, Diabetes type 2, controlled E11.9 [facility] [address] [facility] [id number] [place] [address]- 5619 Nov, [facility] [address] [facility] [id number] [place] [address]- 2237 Nov, [facility] [address] [id number] [place] [address]- 9029 Nov, [facility] [address] [facility] [id number] [place] [address]- 5578 Nov, [facility] [address] [facility] [id number] [place] [address]- 7614 Oct, [facility] [address] [facility] [id number] [place] [address]- 4056 Oct, [facility] [address] [facility] [id number] [place] [address]- 8950 Oct, [facility] [address] [facility] [id number] [place]- 6682 Sep, [facility] [address] [facility] [id number] [place] 9147 Sep, Diabetes type 2, controlled E11.9 [facility] [address] [id number] [place] [address]- 6311 Sep, Diabetes type 2, controlled E11.9 [facility] [address] [address]- 7997 August, [facility] [id number] [place] [address] 95832- 6298 August, [facility] [id number] [place] [address] 87406- 3514 August, Type 2 diabetes mellitus without complication E11.9 and Pain in left shoulder M25.512 [facility] [id number] [place] [address] 10064- 0254 Jul, [facility] [id number] [place] [address] 16030- 2687 Jul, Diabetes type 2, controlled E11.9 and Hypertension, benign I10 [facility] [id number] [place] [address] 04282- 0829 Jun, [facility] [id number] [place] [address] 54913- 1636 Jun, [facility] [id number] [place] [address] 04670- 7548 Jun, Diabetes 250.00 [facility] [address] [address]- 1280 Jun, [facility] [address] [address]- 5191 May, Diabetes type 2, uncontrolled E11.65 [facility] [address] [address]- 2540 May, [facility] [id number] [place] [address] 17732- 3187 Apr, Type 2 diabetes mellitus without complication E11.9 [facility] [address] [address]- 2543 Apr, Encounter for immunization Z23 [facility] [address] [id number] [place] [address]- 9650 Apr, [facility] [address] [facility] [id number] [place]- 6318 Mar, [facility] [address] [facility] [id number] [place]- 7277 Mar, [facility] [address] [facility] [id number] [place] [address], [place]- 4819 Mar, [facility] [address] [facility] [id number] [place] [address]- 3180 Feb, [facility] [address] [facility] [id number] [place] [address], [place] [address]- 3139 Jan, [facility] [address] [place] [address]- 1696 Jan, [facility] [address] [place] [address]- 0761 Jan, [facility] [id number] [place] [address]- 6478 Dec, Diabetes 250.00 and COPD (chronic obstructive pulmonary disease) 496 [facility] [address] [place] [address]- 5670 Dec, [facility] [address] [address]- 6205 Dec, [facility] [address] [facility] [id number] [place] [address]- 7010 Nov, [facility] [address] [facility] [id number] [place] [address]- 0203 Oct, Diabetes 250.00 [facility] [address] [facility] [id number] [place]- 0012 Sep, [facility] [id number]- 7057 Sep, [facility] [address] [facility] [id number] [place] [address]- 1946 Sep, [facility] [id number] [place] [address] 377308- 5940 Sep, Diabetes 250.00 [facility] [address] [address]- 0655 Sep, [facility] [id number] [place] [address] 50764- 8813 Sep, [facility] [id number] [place] [address] 99247- 3264 August, Hypertension, essential, benign 401.1 ; Coronary atherosclerosis of [place] coronary artery 414.01 and Diabetic neuropathy associated with type 2 diabetes mellitus 250.60 [facility] [address] [address]- 7588 29 Jul, 2014 [facility] [id number] [place] [address] 90667- 6309 14 Jul, 2014 [facility] [address] [address]- 8364 Jul, [facility] [id number] [place] [address] 97982- 2292 Jun, [facility] [address] [address]- 7226 Jun, [facility] [address] [address]- 0956 Jun, [facility] [address] [address]- 1215 Jun, [facility] [id number]- 2706 Jun, [facility] [address] 0018 May, [facility] [id number] [place] [address] 75322- 5132 May, 2014 [facility] [place] [facility] [address] [id number] [place] [address]- 0840 May, 2014 [facility] [place] [facility] [address] [id number] [place] [address]- 4306 May, 2014 [facility] [place] [facility] [address] [facility] [id number] [place] [address]- 9331 May, 2014 [facility] [place] [facility] [address] [id number] [place] [address]- 0385 May, 2014 [facility] [place] [facility] [address] [id number] [place] [address]- 4520 May, [facility] [place] [facility] [address] [facility] [id number] [place] [address]- 4813 Apr, [facility] [place] [facility] [address] [facility] [id number] [place] [address]- 4330 Apr, [facility] [place] [facility] [address] [facility] [id number] [place] [address]- 5327 Apr, [facility] [place] [facility] [address] [facility] [id number] [place] [address]- 5400 Apr, [facility] [place] [facility] [address] [facility] [id number] [place] [address]- 8562 Mar, [facility] [place] [facility] [address] [facility] [id number] [place] [address]- 0925 Mar, [facility] [place] [facility] [address] [id number] [place] [address]- 3172 Mar, [facility] [place] [facility] [address] [id number] [place] [address]- 4980 Mar, [facility] [place] [facility] [address] [facility] [id number] [place] [address]- 4378 Feb, [facility] [place] [facility] [address] [facility] [id number] [place] [address]- 5018 Feb, [facility] [place] [facility] [address] [id number] [place] [address] Feb, [facility] [place] [facility] [address] [id number] [place] [address] Feb, [facility] [place] [facility] [address] [id number] [place] [address] Feb, [facility] [place] [facility] [address] [id number] [place] [address] Feb, [facility] [place] [facility] [address] [id number] [place] [address] Feb, [facility] [place] [facility] [address] [id number] [place] [address] Jan, [facility] [place] [facility] [address] [id number] [place] [address] Jan, [facility] [place] [facility] [address] [id number] [place] [address] Dec, [facility] [place] [facility] [address] [id number] [place] [address] Dec, [facility] [place] [facility] [address] [id number] [place] [address] Dec, [facility] [place] [facility] [address] [id number] [place] [address]- [address] 10 Dec, 2013 [facility] [place] [facility] [address] [id number] [place] [address]- [address] 04 Dec, 2013 [facility] [place] [facility] [address] [id number] [place] [address]- [address] 04 Dec, 2013 [facility] [place] [facility] [address] [id number] [place] [address]- [address] Dec, 2013 [facility] [place] [facility] [address] [id number] [place] [address]- [address] Dec, 2013 [facility] [place] [facility] [address] [id number] [place] [address] Nov, [facility] [place] [facility] [address] [id number] [place] [address]- [address] Nov, [facility] [place] [facility] [address] [id number] [place] [address]- [address] Nov, [facility] [place] [facility] [address] [id number] [place] [address]- [address] Nov, [facility] [place] [facility] [address] [id number] [place] [address]- [address] Oct, [facility] [place] [facility] [address] [id number] [place] [address]- [address] Oct, [facility] [place] [facility] [address] [id number] [place] [address] Oct, [facility] [place] [facility] [address] [id number] [place] [address]- [address] Oct, [facility] [place] [facility] [address] [id number] [place] [address]- [address] Oct, [facility] [place] [facility] [address] [id number] [place] [address]- [address] Oct, [facility] [place] [facility] [address] [id number] [place] [address] Oct, [facility] [place] [facility] [address] [id number] [place] [place] [address] Oct, [facility] [place] [facility] [address] [id number] [place] [address] Sep, [facility] [place] [facility] [address] [id number] [place] [address] Sep, [facility] [place] [facility] [address] [id number] [place] [address] August, [facility] [place] [facility] [address] [id number] [place] [address] August, [facility] [place] [facility] [address] [id number] [place] [address] 7786 Jul, [facility] [place] [facility] [address] [id number] [place] [address] 9726 Jul, [facility] [place] [facility] [address] [id number] [place] [address]- [address]36 Jul, [facility] [place] [facility] [address] [id number] [place] [address]- 49[address] Jul, [facility] [place] [facility] [address] [id number] [place] [address]- 5[address] Jul, [facility] [place] [facility] [address] [id number] [place] [address]- 5920 Jul, [facility] [place] [facility] [address] [id number] [place] [address]- 9[address] Jul, [facility] [place] [facility] [address] [id number] [place] [address]- 88[address] Jul, [facility] [place] [facility] [address] [id number] [place] [address]- 0700 Jun, [facility] [place] [facility] [address] [id number] [place] [address]- 0595 Jun, [facility] [place] [facility] [address] [id number] [place] [address]- 5597 Jun, [facility] [place] [facility] [address] [id number] [place] [address]- 6218 Jun, [facility] [place] [facility] [address] [id number] [place] [address]- 9757 May, [facility] [place] [facility] [address] [id number] [place] [address]- 1281 May, [facility] [place] [facility] [address] [id number] [place] [address]- [address]28 Apr, [facility] [place] [facility] [address] [id number] [place] [address]- 3451 Apr, [facility] [place] [facility] [address] [id number] [place] [address]- 9703 Mar, [facility] [place] [facility] [address] [id number] [place] [address]- 1734 Mar, [facility] [place] [facility] [address] [id number] [place] [address]- 450[address] Mar, [facility] [place] [facility] [address] [id number] [place] [address]- 9515 Mar, [facility] [place] [facility] [address] [id number] [place] [address]- 8702 Mar, [facility] [place] [facility] [address] [id number] [place] [address]- 0356 Mar, [facility] [place] [facility] [address] [id number] [place] [address]- 239[address] Feb, [facility] [place] [facility] [address] [id number] [place] [address]- 5459 Feb, [facility] [place] [facility] [address] [id number] [place] [address]- 4309 Feb, [facility] [place] [facility] [address] [id number] [place] [address]- 8419 Feb, [facility] [place] [facility] [address] [id number] [place] [address]- 2401 Feb, [facility] [place] [facility] [address] [id number] [place] [address]- [address] Feb, [facility] [place] [facility] [address] [id number] [place] [address] Feb, [facility] [place] [facility] [address] [id number] [place] [address]- 4[address] Feb, [facility] [place] [facility] [address] [id number] [place] [address]- 384[address] 15 Jan, 2013 [facility] [place] [facility] [address] [id number] [place] [address]- 4[address] 15 Jan, 2013 [facility] [place] [facility] [address] [id number] [place] [address]- 4815 14 Jan, 2013 [facility] [place] [facility] [address] [id number] [place] [address] 14 Jan, 2013 [facility] [place] [facility] [address] [id number] [place] [address]- 9488 18 Dec, 2012 [facility] [place] [facility] [address] [id number] [place] [address]- 9662 13 Dec, 2012 [facility] [place] [facility] [address] [id number] [place] [address]- [address] 2012 [facility] [place] [facility] [address] [id number] [place] [address]- [address]30 Nov, [facility] [place] [facility] [address] [id number] [place] [address]- 5748 Nov, [facility] [place] [facility] [address] [id number] [place] [address]- 0[address] 16 Oct, 2012 [facility] [place] [facility] [address] [id number] [place] [address]- 68[address] Oct, [facility] [place] [facility] [address] [id number] [place] [address]- 0331 Oct, [facility] [place] [facility] [address] [id number] [place] [address] Sep, [facility] [place] [facility] [address] [id number] [place] [address]- 2853 Sep, [facility] [place] [facility] [address] [id number] [place] [address]- 0658 18 Sep, 2012 [facility] [place] [facility] [address] [id number] [place] [address]- 3676 Sep, [facility] [place] [facility] [address] [id number] [place] [address]- 7400 Sep, [facility] [place] [facility] [address] [id number] [place] [address]- 0611 Sep, [facility] [address] [id number] [place] [address]- 5294 August, [facility] [address] [id number] [place] [address]- 9356 August, [facility] [address] [id number] [place] [address]- 4490 August, [facility] [address] [id number] [place] [address]- 5829 August, [facility] [address] [id number] [place] [address]- 4892 August, [facility] [address] [id number] [place] [address]- 1785 August, [facility] [address] [id number] [place] [address]- 1591 August, [facility] [address] [id number] [place] [address]- 4167 Jul, [facility] [address] [id number] [place] [address]- 1761 Jul, [facility] [address] [id number] [place] [address]- 5029 Jun, [facility] [address] [id number] [place] [address]- 5645 Jun, [facility] [address] [id number] [place] [address]- 4673 May, [facility] [place] [facility] [address] [id number] [place] [address]- 6086 May, [facility] [address] [id number] [place] [address]- 7776 Apr, [facility] [address] [id number] [place] [address]- 3124 Mar, [facility] [place] [facility] [address] [id number] [place] [address]- 3291 Mar, [facility] [place] [facility] [address] [id number] [place] [address]- 2761 Mar, [facility] [place] [facility] [address] [facility] [id number] [place] [address]16 Mar, [facility] [place] [facility] [address] [id number] [place] [address] Mar, [facility] [place] [facility] [address] [id number] [place] [address]- 3152 Mar, [facility] [place] [facility] [address] [id number] [place] [address]- 0962 Feb, [facility] [place] [facility] [address] [id number] [place] [address]- 7848 Feb, [facility] [place] [facility] [address] [id number] [place] [address]- 3983 Feb, [facility] [place] [facility] [address] [id number] [place] [address]- 9897 Feb, [facility] [place] [facility] [address] [facility] [id number] [place] [address]- 6152 Feb, [facility] [place] [facility] [address] [id number] [place] [address]- 2567 Feb, [facility] [place] [facility] [address] [id number] [place] [address]- 6113 Feb, [facility] [place] [facility] [address] [id number] [place] [address]- 9024 Feb, [facility] [place] [facility] [address] [facility] [id number] [place] [address]- 0292 Jan, [facility] [place] [facility] [address] [facility] [id number] [place] [address]- 6432 Jan, [facility] [place] [facility] [address] [id number] [place] [address]- 8427 28 Dec, 2011 [facility] [place] [facility] [address] [id number] [place] [address] 2546 19 Dec, 2011 [facility] [place] [facility] [address] [id number] [place] [address] 2546 18 Dec, 2011 [facility] [place] [facility] [address] [id number] [place] [address] 2546 18 Dec, 2011 [facility] [place] [facility] [address] [id number] [place] [address] 2546 04 Dec, 2011 [facility] [place] [facility] [address] [id number] [place] [address]- 0476 Nov, [facility] [place] [facility] [address] [id number] [place] [address]- 7355 Oct, [facility] [place] [facility] [address] [id number] [place] [address]- 9170 Oct, [facility] [place] [facility] [address] [id number] [place] [address] 2544 Sep, [facility] [place] [facility] [address] [id number] [place] [address]- 8278 Sep, [facility] [place] [facility] [address] [id number] [place] [address] 2542 Sep, [facility] [place] [facility] [address] [id number] [place] [address] 2546 Sep, [facility] [place] [facility] [address] [id number] [place] [address] 2549 Sep, [facility] [place] [facility] [address] [id number] [place] [address] 2547 Sep, [facility] [place] [facility] [address] [id number] [place] [address] 2546 Sep, [facility] [place] [facility] [address] [id number] [place] [address]- 6548 Sep, [facility] [place] [facility] [address] [id number] [place] [address]- 6175 August, [facility] [address] [id number] [place] [address]- 2389 August, [facility] [address] [id number] [place] [address]- 1026 August, [facility] [address] [id number] [place] [address]- 5351 Jul, [facility] [address] [id number] [place] [address]- 1710 Jul, [facility] [address] [id number] [place] [address]- 9955 Jun, [facility] [address] [id number] [place] [address]- 7927 Jun, [facility] [address] [id number] [place] [address]- 9671 Jun, [facility] [address] [id number] [place] [address]- 2448 Jun, [facility] [address] [id number] [place] [address]- 9731 May, [facility] [address] [id number] [place] [address]- 8288 May, [facility] [address] [id number] [place] [address]- 7380 Apr, [facility] [place] [facility] [address] [id number] [place] [address]- 4973 Apr, [facility] [place] [facility] [address] [id number] [place] [address]- 6896 Apr, [facility] [place] [facility] [address] [id number] [place] [address]- 3746 Mar, [facility] [address] [id number] [place] [address]- 6385 Mar, [facility] [place] [facility] [address] [id number] [place] [address]- 9120 Mar, [facility] [place] [facility] [address] [id number] [place] [address]- 3053 Feb, [facility] [place] [facility] [address] [facility] [id number] [place] [address]- 3386 Feb, [facility] [place] [facility] [address] [id number] [place] [address]- 4710 Feb, [facility] [place] [facility] [address] [id number] [place] [address]- 7144 Feb, [facility] [place] [facility] [address] [id number] [place] [address]- 9106 Jan, [facility] [place] [facility] [address] [facility] [id number] [place] [address]- 9966 Jan, [facility] [place] [facility] [address] [facility] [id number] [place] [address]- 0362 Jan, [facility] [place] [facility] [address] [facility] [id number] [place] [address]- 8348 Dec, [facility] [place] [facility] [address] [facility] [id number] [place] [address]- 6471 Oct, [facility] [place] [facility] [address] [id number] [place] [address]- 6551 Mar, [facility] [place] [facility] [address] [id number] [place] [address]- 5595 Feb, [facility] [place] [facility] [address] [id number] [place] [address]- 5796 15 Feb, 2010 [facility] [place] [facility] [address] [facility] [id number] [place] [address] 16 May, 2009 [facility] [place] [facility] [address] [facility] [id number] [place] [address]201 Apr, [facility] [place] [facility] [address] [facility] [id number] [place] [address]- 1467 Mar, [facility] [address] [id number] [place] [address]- 3973 Jan, [facility] [id number] [address]- 8306 Oct, [facility] [id number] [place] [address]- 8990 Jul, [facility] [id number] [place] [address]- 9378 Mar, [facility] [id number] [address] Feb, [facility] [address] [id number] [place] [address]- 9491 Jan, IMMUNIZATIONS No Known Immunizations SOCIAL HISTORY Never Assessed REASON FOR VISIT [facility] follow up, [facility] nursing and PT, 10/01/17 [facility] ER Kidney infection , broken nose, swollen right ankle, PT is very sore from falling at home PLAN OF CARE VITAL SIGNS Height 71 in 2017-10-08 Weight 361 lbs 2017-10-08 Temperature 97.7 degrees Fahrenheit 2017-10-08 Heart Rate 100 bpm 2017-10-08 Respiratory Rate 20 2017-10-08 BMI 50.34 kg/m2 2017-10-08 Blood pressure systolic 130 mmHg 2017-10-08 Blood pressure diastolic 86 mmHg 2017-10-08 MEDICATIONS Medication Instructions Dosage Frequency Start Date End Date Duration Status Lyrica 200 mg Orally Three times a day 1 capsule 8h 28 days Active Viagra 100 mg Orally Once a day 1 tablet as needed 24h Active Metoprolol Tartrate 100 mg 1 tablet with food 12h Active Blood Glucose Test 1 1 test Jul, Active GlipiZIDE 5 mg TAKE TWO TABLETS BY MOUTH TWICE DAILY 30 Not- Taking Aspirin 325 MG Orally Once a day 1 tablet 24h Active Fish Oil 1200 MG Orally Once a day 2 capsule 24h Active GlipiZIDE 10 MG Orally 2 times a day 2 tablets 12h Active Vitamin B Complex Active Furosemide 20 mg Orally Once a day 2 tablet in the AM and 1 tablet in PM 24h Active Atorvastatin Calcium 40 MG Orally Once a day 1 tablet 24h Active Tamsulosin HCl 0.4 MG Orally Once a day 1 capsule 30 minutes after the same meal each day 24h Active Silver Sulfadiazine 1 % Externally Once a day 1 application to affected area 24h Apr, Apr, 30 days Active lidocaine topical 5 %(700 mg/patch) 3 PATCH by Topical route 1 time per day apply on bilateral wrist and left ankle 24h 14 Jan, 2013 Active ProAir HFA 108 (90 Base) MCG/ACT Inhalation every 4 hrs 2 puffs as needed 4h Active Glucometer as directed Oct, Active Vitamin D 2000 UNIT Active MS Contin 15 mg Orally every 12 hrs 1 tablet 12h Sep, 28 days Active Tylenol Extra Strength 500 mg Orally 3 times a day 2 tablets 8h Active True Metrix Blood Glucose Test - once a day Active potassium 1 tab Active Duloxetine HCl 60 MG TAKE ONE CAPSULE BY MOUTH TWICE DAILY 90 Active Baclofen 20 mg Orally 2 times a day 1 tablet with food or milk 12h Sep, Jan, 30 day(s) Active Amitriptyline HCl 100 MG TAKE ONE TABLET BY MOUTH ONCE DAILY 90 Active Lancets - as directed Oct, Active Bydureon 2 MG Subcutaneous once weekly 2mg 28 Active Cymbalta 30 MG TAKE ONE CAPSULE BY MOUTH DAILY ALONG WITH DULOXETINE 60 MG Active Duloxetine HCl 30 MG TAKE ONE CAPSULE BY MOUTH ONCE DAILY ALONG WITH DULOXETINE 60 MG 90 Active Hydrochlorothiazide 25 MG TAKE ONE TABLET BY MOUTH ONCE DAILY 90 Active Symbicort 160-4.5 MCG/ACT Inhalation Twice a day 2 puff 12h Feb, Active RESULTS Name Result Date Reference Range A1C (IN HOUSE) 2017-10-08 A1C IN HOUSE 9.0 4.3 - 5.6 % Previous A1c 9.4 Lot [id number] Exp date 06/2019 PROCEDURES Procedure Date Ordered Result Body Site GLYCATED HEMOGLOBIN TEST October 08, 2017 INSTRUCTIONS MEDICATIONS ADMINISTERED No Known Medications [...]
--- OUTSIDE RECORDS SUMMARY | 2018-07-05 12:37 | XMS REPORT ---
Author Author KATHYA FISCHER Organization [facility] Address [address] [place] [address] Care Team Providers Care Client Relation Specialist Name Role Phone KATHYA FISCHER Unavailable PROBLEMS Type Condition ICD9-CM Code DAH38-PS Code Onset Dates Condition Status SNOMED Code Problem Arthritis M19.90 Active 3513786 Problem 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 Active 18731592 Problem Polyneuropathy G62.9 Active 52092704 Problem Other male erectile dysfunction N52.8 Active 037011680 Problem Constipation K59.00 Active 06719802 Problem Type 2 diabetes mellitus with 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 E11.65 Active 453776961 Problem Controlled type 2 diabetes mellitus without complication, without long -term current use of insulin E11.9 Active 840022993 Problem skilled nursing current use of insulin Z79.4 Active 680706614 Problem Neuropathy G62.9 Active 814176451 Problem Obstructive sleep apnea G47.33 Active 29914278 Problem Hypertension, benign I10 Active 18860367 Problem Uncontrolled type 2 diabetes mellitus without complication, without long-term current use of insulin E11.65 Active 885257569 Problem Stress incontinence of urine N39.3 Active 17486852 Problem Fibromyalgia M79.7 Active 194500603 ALLERGIES No Information ENCOUNTERS Encounter Location Date Diagnosis [facility] [id number] [place] [address] 39218- 7240 Dec, [facility] [address], [place] [address] 0513 Nov, Therapeutic drug monitoring Z51.81 ; Fibromyalgia M79.7 and Controlled type 2 diabetes mellitus without complication, without long-term current use of insulin E11.9 [facility] [address], [place] [address] 2836 Nov, [facility] [id number] [place] [address] 14023- 5378 Nov, [facility] [address], [place] [address]- 7388 Nov, [facility] [id number] [place] [address] 66244- 0478 Nov, Type 2 diabetes mellitus with 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 E11.65 [facility] [address] [place] [address] 16767- 4952 Nov, [facility] [address] [place] [address] 76849- 7868 Nov, [facility] [address] [place] [address] 90972- 5199 Nov, Constipation K59.00 [facility] [id number] [place] [address] 24027- 5849 Oct, Diabetes type 2, controlled E11.9 [facility] [id number] [place] [address] 68035- 1358 Oct, Type 2 diabetes mellitus with 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 E11.65 ; skilled nursing current use of insulin Z79.4 and Neuropathy G62.9 [facility] [address] [place] [address] 59642- 2679 Oct, [facility] [address], [place] [address]- 9613 Oct, [facility] [address], [place] [address]- 9143 Oct, [facility] [address], [place] [address]- 7117 Oct, [facility] [address] [place] [address] 63212- 8354 Oct, [facility] [address], [place] [address]- 4027 Oct, [facility] [address], [place] [address]- 8614 Oct, [facility] [address], [place] [address] 2546 Sep, [facility] [id number] [place] [address] 84438 2546 Sep, Uncontrolled type 2 diabetes mellitus without complication, without long-term current use of insulin E11.65 [facility] [address] [place] [address] 71041 2546 Sep, Hypertension, benign I10 ; Fibromyalgia M79.7 ; Controlled type 2 diabetes mellitus without complication, without long-term current use of insulin E11.9 and Uncontrolled type 2 diabetes mellitus without complication, without long-term current use of insulin E11.65 [facility] [id number] [place] [address] 36719 2546 Sep, [facility] [id number] [place] [address] 02274 2546 Sep, Uncontrolled type 2 diabetes mellitus without complication, without long-term current use of insulin E11.65 [facility] [address], [place] [address] 2546 Sep, [facility] [id number] [place] [address] 97769 2546 Sep, [facility] [address], [place] [address] 2546 Sep, Uncontrolled type 2 diabetes mellitus without complication, without long-term current use of insulin E11.65 and Fibromyalgia M79.7 [facility] [address], [place] [address] 2546 August, [facility] [address], [place] [address] 2546 August, [facility] [id number], [place] [address] 2546 August, [facility] [address], [place] [address] 2546 August, Fibromyalgia M79.7 [facility] [id number] [place] [address] 91756- 7497 Jul, Hypertension, benign I10 [facility] [address] 17341- 2788 Jul, Fibromyalgia M79.7 [facility] [address] 15011- 9661 Jul, [facility] [address] 90252- 0339 Jun, [facility] [address] 00630- 3764 Jun, Hypertension, benign I10 ; Arthritis M19.90 ; 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 and Uncontrolled type 2 diabetes mellitus without complication, without long-term current use of insulin E11.65 [facility] [address] 78435 -3954 Jun, Acute nasopharyngitis J00 and BMI 50.0-59.9, adult Z68.43 [facility] [address] 84735- 8962 Jun, Fibromyalgia M79.7 [facility] [id number] [place] [address] 76549- 4639 May, [facility] [address] 18994- 3117 May, Fibromyalgia M79.7 [facility] [address] 72649- 2460 Apr, Fibromyalgia M79.7 [facility] [address] 39286- 2431 Apr, [facility] [address] 69334- 1893 Apr, [facility] [address] 02378- 3271 Apr, Arthritis M19.90 [facility] [id number] [place] [address] 84924- 3786 Apr, Arthritis M19.90 [facility] [id number] [place] [address] 93036 2548 10 Apr, 2017 Arthritis M19.90 and Controlled type 2 diabetes mellitus without complication, without long-term current use of insulin E11.9 [facility] [address] 04954- 3463 Apr, [facility] [id number] [place] [address] 38560- 6797 Apr, Fibromyalgia M79.7 [facility] [id number] [place] [address] 86546- 2065 Mar, [facility] [address] 44717- 8886 Mar, [facility] [id number] [place] [address] 78476- 9616 Mar, Fibromyalgia M79.7 [facility] [id number] [place] [address] 74942- 3858 Feb, [facility] [id number] [place] [address] 59178- 8905 Feb, [facility] [id number] [place] [address] 06658- 0684 Feb, [facility] [id number] [place] [address] 91371 2542 Feb, Fibromyalgia M79.7 [facility] [id number] [place] [address] 85831- 0582 Feb, Diabetes type 2, uncontrolled E11.65 and Encounter for immunization Z23 [facility] [id number] [place] [address] 58796- 8498 Jan, [facility] [address], [place] [address]- 4471 Jan, Fibromyalgia M79.7 [facility] [id number] [place] [address] 45165- 9046 Dec, [facility] [address], [place] [address]- 1520 Dec, Fibromyalgia M79.7 [facility] [id number] [place] [address] 47210- 9478 Nov, [facility] [id number] [place] [address] 57697- 2211 Nov, [facility] [id number] [place] [address] 09856- 7352 Nov, 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 and Polyneuropathy G62.9 [facility] [id number] [place] [address] 86555- 3131 Nov, [facility] [address] [place] [address] 79380- 0324 Nov, [facility] [id number] [place] [address] 56090- 5275 Oct, Diabetes type 2, uncontrolled E11.65 [facility] [address], [place] [address]- 8750 Oct, Diabetes type 2, uncontrolled E11.65 ; Polyneuropathy G62.9 and Pain in right wrist M25.531 [facility] [address], [place] [address]- 0420 Oct, [facility] [id number] [place] [address] 77820- 3497 Oct, Pain in left shoulder M25.512 [facility] [address], [place] [address]- 8721 Sep, [facility] [id number] [place] [address] 86796- 8433 Sep, Pain in left shoulder M25.512 [facility] [address], [place] [address]- 8682 Sep, [facility] [id number] [place] [address] 39297- 2906 August, Pain in left shoulder M25.512 [facility] [id number] [place] [address] 15643- 2892 Jul, [facility] [id number] [place] [address] 32965- 5967 Jul, [facility] [id number] [place] [address] 45629- 5486 Jul, Pain in left shoulder M25.512 [facility] [id number] [place] [address] 59577- 7165 Jun, [facility] [id number] [place] [address] 27230- 1088 Jun, [facility] [id number] [place] [address] 55582- 1690 Jun, Diabetes type 2, uncontrolled E11.65 ; Fibromyalgia M79.7 and Arthritis M19.90 [facility] [address], [place] [address]- 8920 Jun, Pain in left shoulder M25.512 [facility] [address], [place] [address]- 6033 May, [facility] [address], [place] [address]- 2900 May, Diabetes type 2, controlled E11.9 [facility] [id number] [place] [address] 53843- 0606 17 May, 2016 [facility] [address], [place] [address]- 0912 May, Uncontrolled type 2 diabetes mellitus without complication, without long-term current use of insulin E11.65 [facility] [address], [place] [address]- 1167 15 May, 2016 Pain in left shoulder M25.512 [facility] [address], [place] [address]- 1348 03 May, 2016 Diabetes type 2, controlled E11.9 and Uncontrolled type 2 diabetes mellitus without complication, without long-term current use of insulin E11.65 [facility] [address], [place] [address]- 5210 Apr, [facility] [address], [place] [address]- 7095 Apr, [facility] [address] [place] [address] 34415- 6340 Mar, [facility] [id number] [place] [address] 30500- 1223 Mar, [facility] [address], [place] [address]- 5276 Mar, [facility] [address], [place] [address]- 1590 Feb, [facility] [address] [address] Feb, Dental examination Z01.20 [facility] [address], [place] [address]- 5894 Jan, [facility] [address], [place] [address]- 6584 Dec, [facility] [address], [place] [address]- 3455 Dec, [facility] [address], [place] [address]- 7889 Dec, [facility] [address], [place] [address]- 2138 Dec, Diabetes type 2, controlled E11.9 [facility] [address] [id number] [place] [address]- 2590 Nov, [facility] [address] [id number] [place] [address]- 5406 Nov, [facility] [address] [id number] [place] [address]- 1435 Nov, [facility] [address] [id number] [place] [address]- 6398 Nov, [facility] [address] [id number] [place] [address]- 5954 Oct, [facility] [address] [id number] [place] [address]- 9482 Oct, [facility] [address] [facility] [id number] [place] [address]- 7165 Oct, [facility] [address] [facility] [id number] [place] [address]- 7932 Sep, [facility] [address] [facility] [id number] [place] [address]- 6835 Sep, Diabetes type 2, controlled E11.9 [facility] [address] [facility] [id number] [place] [address]- 2448 Sep, Diabetes type 2, controlled E11.9 [facility] [address] [facility] [id number] [place] [address]- 9206 August, [facility] [address] [id number] [place] [address]- 4907 August, [facility] [address] [facility] [id number] [place] [address]- 0124 August, Type 2 diabetes mellitus without complication E11.9 and Pain in left shoulder M25.512 [facility] [address] [facility] [id number] [place] [address]- 2015 Jul, [facility] [id number] [place] [address] 88535- 6853 Jul, Diabetes type 2, controlled E11.9 and Hypertension, benign I10 [facility] [id number] [place] [address] 59222- 2426 Jun, [facility] [id number] [place] [address] 72538- 3703 Jun, [facility] [address] 41205- 4306 Jun, Diabetes 250.00 [facility] [id number] [place] [address] 74066- 0148 Jun, [facility] [id number] [place] [address] 27437- 0847 May, Diabetes type 2, uncontrolled E11.65 [facility] [id number] [place] [address] 36683- 1612 May, [facility] [id number] [place] [address] 33285- 3743 Apr, Type 2 diabetes mellitus without complication E11.9 [facility] [id number] [place] [address] 17074- 7902 Apr, Encounter for immunization Z23 [facility] [id number] [place] [address] 78632- 1670 Apr, [facility] [id number] [place] [address] 94750- 8358 Mar, [facility] [id number] [place] [address] 09369- 5634 Mar, [facility] [id number] [place] [address] 74946- 8193 Mar, [facility] [id number] [place] [address] 89768- 6591 Feb, [facility] [id number] [place] [address] 80698- 2781 Jan, [facility] [address], [place] [address]- 5301 Jan, [facility] [address] 2412 Jan, [facility] [address] 1252 Dec, Diabetes 250.00 and COPD (chronic obstructive pulmonary disease) 496 [facility] [address], [place] [address]- 6043 Dec, [facility] [id number] [place] [address] 93232- 8144 Dec, [facility] [address], [place] [address]- 6938 Nov, [facility] [id number] [place] [address] 55052- 2045 Oct, Diabetes 250.00 [facility] [address], [place] [address]- 6872 Sep, [facility] [address], [place] [address]- 8135 Sep, [facility] [address], [place] [address]- 0518 Sep, [facility] [address], [place] [address]- 5917 Sep, Diabetes 250.00 [facility] [address], [place] [address]- 3577 Sep, [facility] [id number] [place] [address] 90911705- 9399 Sep, [facility] [address] [address]- 0660 August, Hypertension, essential, benign 401.1 ; Coronary atherosclerosis of [place] coronary artery 414.01 and Diabetic neuropathy associated with type 2 diabetes mellitus 250.60 [facility] [place] [facility] [address] [facility] [id number] [place] [address]- 3398 29 Jul, 2014 [facility] [place] [facility] [address] [facility] [id number] [place] [address]- 9656 14 Jul, 2014 [facility] [place] [facility] [id number] [place] [address]- 7435 Jul, [facility] [place] [facility] [address] [facility] [id number], [place] [address]- 2881 Jun, [facility] [place] [facility] [address] [facility] [id number] [place] [address]- 3680 Jun, [facility] [place] [facility] [address] [facility] [id number] [place] [address]- 6374 Jun, [facility] [place] [facility] [address] [place] [address]- 4668 Jun, [facility] [place] [facility] [address] [facility] [id number], [place] [address]- 3050 Jun, [facility] [place] [facility] [id number] [place] [address]- 8448 May, [facility] [place] [facility] [address] [place] [address]- 9212 May, [facility] [place] [facility] [address], [place] [address]- 9359 May, [facility] [place] [facility] [address], [place] [address]- 7278 May, [facility] [place] [facility] [id number] [place] [address]- 3652 May, [facility] [place] [facility] [address] [facility] [id number]- 2097 May, [facility] [place] [facility] [address] 7672 May, [facility] [place] [facility] [address] [id number] [place] [address]- 2865 Apr, [facility] [place] [facility] [address] [id number] [place] [address]- 1955 Apr, [facility] [place] [facility] [address] [id number] [place] [address]- 8096 Apr, [facility] [place] [facility] [address] [id number] [place] [address]- 9198 Apr, [facility] [place] [facility] [address] [id number] [place] [address]- 2088 Mar, [facility] [place] [facility] [address] [id number] [place] 2683 Mar, [facility] [place] [facility] [address] [id number] [place] 0230 Mar, [facility] [place] [facility] [address] [id number] [place] [address]- 1344 Mar, [facility] [place] [facility] [address] [id number] [place] [address]- 3037 Feb, [facility] [place] [facility] [address] [id number] [place] [address]- 5798 Feb, [facility] [place] [facility] [address] [facility] [id number] [place] [address]- 7383 Feb, [facility] [place] [facility] [address] [id number] [place] [address]- 6731 Feb, [facility] [place] [facility] [address] [id number] [place] [address]- 4718 Feb, [facility] [place] [facility] [address] [id number] [place] [address]- 8391 Feb, [facility] [place] [facility] [address] [id number] [place] [address]- 6926 Feb, [facility] [place] [facility] [address] [id number] [place] [address]- 1284 Jan, [facility] [place] [facility] [address] [id number] [place] [address]- 3093 Jan, [facility] [place] [facility] [address] [id number] [place] [address]- 2918 Dec, [facility] [place] [facility] [address] [id number] [place] [address]- 8766 Dec, [facility] [place] [facility] [address] [id number] [place] [address]- 8548 Dec, [facility] [place] [facility] [address] [id number] [place] [address]- 7461 Dec, [facility] [place] [facility] [address] [id number] [place] [address]- 4374 Dec, [facility] [place] [facility] [address] [id number] [place] [address]- 7015 Dec, [facility] [place] [facility] [address] [id number] [place] [address]- 1501 Dec, [facility] [place] [facility] [address] [id number] [place] [address]- 4192 Dec, [facility] [place] [facility] [address] [id number] [place] [address]- 9355 Nov, [facility] [place] [facility] [address] [id number] [place] [address]- 2494 Nov, [facility] [place] [facility] [address] [id number], [place] [address]- 6631 Nov, [facility] [place] [facility] [address] [id number] [place] [address]- 1533 Nov, [facility] [place] [facility] [address] [id number] [place] [address]- 0763 Oct, [facility] [place] [facility] [address] [id number] [place] [address]- 1768 Oct, [facility] [place] [facility] [address] [id number] [place] [address] Oct, [facility] [place] [facility] [address] [id number] [place] [address] Oct, [facility] [place] [facility] [address] [id number] [place] [address] Oct, [facility] [place] [facility] [address] [id number] [place] [address] Oct, [facility] [place] [facility] [address] [id number] [place] [address] Oct, [facility] [place] [facility] [address] [id number] [place] [address] Oct, [facility] [place] [facility] [address] [id number] [place] [address] Sep, [facility] [place] [facility] [address] [id number] [place] [address] Sep, [facility] [place] [facility] [address] [id number] [place] [address] August, [facility] [place] [facility] [address] [id number] [place] [address] August, [facility] [place] [facility] [address] [id number] [place] [address] Jul, [facility] [place] [facility] [address] [id number] [place] [address] Jul, [facility] [place] [facility] [address] [id number] [place] [address] Jul, [facility] [place] [facility] [address] [id number] [place] [address] Jul, [facility] [place] [facility] [address] [id number] [place] [address] Jul, [facility] [place] [facility] [address] [id number] [place] [address] Jul, [facility] [place] [facility] [address] [id number] [place] [address] Jul, [facility] [place] [facility] [address] [id number] [place] [address] Jul, [facility] [place] [facility] [address] [id number] [place] [address] Jun, [facility] [place] [facility] [address] [id number] [place] [address] Jun, [facility] [place] [facility] [address] [id number] [place] [address] 39[address] Jun, [facility] [place] [facility] [address] [id number] [place] [address] Jun, [facility] [place] [facility] [address] [id number] [place] [address] May, [facility] [place] [facility] [address] [id number] [place] [address] May, [facility] [place] [facility] [address] [id number] [place] [address] Apr, [facility] [place] [facility] [address] [id number] [place] [address] Apr, [facility] [place] [facility] [address] [id number] [place] [address] Mar, [facility] [place] [facility] [address] [id number] [place] [address] 46[address] Mar, [facility] [place] [facility] [address] [id number] [place] [address] Mar, [facility] [place] [facility] [address] [id number] [place] [address] 7741 Mar, [facility] [place] [facility] [address] [id number] [place] [address] Mar, [facility] [place] [facility] [address] [id number], [place] [address] Mar, [facility] [place] [facility] [address] [id number] [place] [address] 300[address] Feb, [facility] [place] [facility] [address] [id number], [place] [address] Feb, [facility] [place] [facility] [address] [id number] [place] [address] Feb, [facility] [place] [facility] [address] [id number], [place] [address] 8813 Feb, [facility] [place] [facility] [address] [id number] [place] [address] 2549 Feb, [facility] [place] [facility] [address] [id number] [place] [address] 8979 Feb, [facility] [place] [facility] [address] [id number], [place] [address] Feb, [facility] [place] [facility] [address] [id number] [place] [address] 0696 Feb, [facility] [place] [facility] [address] [id number], [place] [address]- [address] 15 Jan, 2013 [facility] [place] [facility] [address] [id number], [place] [address] 15 Jan, 2013 [facility] [place] [facility] [address] [id number], [place] [address] 14 Jan, 2013 [facility] [place] [facility] [address] [id number], [place] [address] 14 Jan, 2013 [facility] [place] [facility] [address] [id number], [place] [address] 8214 18 Dec, 2012 [facility] [place] [facility] [address] [id number], [place] [address] 13 Dec, 2012 [facility] [place] [facility] [address] [id number], [place] [address] 2012 [facility] [place] [facility] [address] [id number] [place] [address] Nov, [facility] [address] [id number] [place] [address] Nov, [facility] [address] [id number] [place] [address] 2546 Oct, [facility] [address] [id number] [place] [address] 5440 Oct, [facility] [address] [id number] [place] [address] 0275 Oct, [facility] [address] [id number] [place] [address] 7909 Sep, [facility] [address] [id number] [place] [address]558 Sep, [facility] [address] [id number] [place] [address] 6296 Sep, [facility] [address] [id number] [place] [address] 7071 Sep, [facility] [address] [id number] [place] [address] 2555 Sep, [facility] [address] [id number] [place] [address] 4686 Sep, [facility] [address] [id number] [place] [address] 0275 August, [facility] [address] [id number] [place] [address] 0068 August, [facility] [place] [facility] [address] [id number] [place] [address] 7295 August, [facility] [address] [id number] [place] [address] 2006 August, [facility] [address] [id number] [place] [address] 9578 August, [facility] [address] [id number] [place] [address] 8060 August, [facility] [address] [id number] [place] [address]348 August, [facility] [address] [id number] [place] [address] 1118 Jul, [facility] [address] [id number] [place] [address] 3393 Jul, [facility] [address] [id number] [place] [address] 6093 Jun, [facility] [address] [id number] [place] [address] 6167 Jun, [facility] [address] [id number] [place] [address] 6347 May, [facility] [address] [id number] [place] [address] 3669 May, [facility] [address] [id number] [place] [address] 1239 Apr, [facility] [address] [id number] [place] [address] 2923 Mar, [facility] [address] [id number] [place] [address] 4893 Mar, [facility] [place] [facility] [address] [id number], [place] [address] Mar, [facility] [place] [facility] [address] [id number] [place] [address] 2725 Mar, [facility] [place] [facility] [address] [id number] [place] [address] 2411 Mar, [facility] [place] [facility] [address] [id number] [place] [address]- 9022 Mar, [facility] [address] [id number] [place] [address]- 5734 Feb, [facility] [place] [facility] [address] [id number] [place] [address] 6139 Feb, [facility] [place] [facility] [address] [id number] [place] [address]- 2669 Feb, [facility] [place] [facility] [address] [id number] [place] [address]- 7775 Feb, [facility] [place] [facility] [address] [id number] [place] [address]- 5770 Feb, [facility] [place] [facility] [address] [id number] [place] [address]- 5202 Feb, [facility] [place] [facility] [address] [id number] [place] [address]- 8952 Feb, [facility] [place] [facility] [address] [id number] [place] [address]- 2946 Feb, [facility] [place] [facility] [address] [id number] [place] [address]- 6123 Jan, [facility] [place] [facility] [address] [id number] [place] [address]- 5268 Jan, [facility] [place] [facility] [address] [facility] [id number] [place] [address]- 1359 28 Dec, 2011 [facility] [place] [facility] [address] [id number] [place] [address]- 8706 19 Dec, 2011 [facility] [place] [facility] [address] [id number], [place] [address] 2549 18 Dec, 2011 [facility] [place] [facility] [address] [id number] [place] [address]- 2856 18 Dec, 2011 [facility] [place] [facility] [address] [id number] [place] [address]- 2196 04 Dec, 2011 [facility] [place] [facility] [address] [id number], [place] [address]- 4346 Nov, [facility] [place] [facility] [address] [id number] [place] [address]- 0387 Oct, [facility] [place] [facility] [address] [id number] [place] [address]- 9395 Oct, [facility] [place] [facility] [address] [id number] [place] [address]- 4375 Sep, [facility] [place] [facility] [address] [id number] [place] [address]- 4371 Sep, [facility] [place] [facility] [address] [id number] [place] [address]- 6779 Sep, [facility] [place] [facility] [address] [id number] [place] [address]- 0267 Sep, [facility] [place] [facility] [address] [id number] [place] [address]- 0433 Sep, [facility] [place] [facility] [address] [id number] [place] [address]- 5487 Sep, [facility] [place] [facility] [address] [id number] [place] [address]- 9088 Sep, [facility] [place] [facility] [address] [id number] [place] [address]- 6373 Sep, [facility] [place] [facility] [address] [id number] [place] [address]- 2535 August, [facility] [place] [facility] [address] [id number] [place] [address]- 7608 August, [facility] [place] [facility] [address] [id number] [place] [address]- 6811 August, [facility] [place] [facility] [address] [id number] [place] [address]- 2439 Jul, [facility] [place] [facility] [address] [id number] [place] [address]- 2447 Jul, [facility] [place] [facility] [address] [id number] [place] [address]- 6526 Jun, [facility] [address] [id number] [place] [address]- 6974 Jun, [facility] [place] [facility] [address] [id number] [place] [address]- 3548 Jun, [facility] [place] [facility] [address] [id number] [place] [address]- 8238 Jun, [facility] [place] [facility] [address] [id number] [place] [address]- 8875 May, [facility] [place] [facility] [address] [id number] [place] [address]- 2338 May, [facility] [place] [facility] [address] [id number] [place] [address]- 0318 Apr, [facility] [address] [id number] [place] [address]- 6779 Apr, [facility] [place] [facility] [address] [id number] [place] [address]- 6034 Apr, [facility] [address] [id number] [place] [address]- 9723 Mar, [facility] [place] [facility] [address] [id number] [place] [address]- 9449 Mar, [facility] [place] [facility] [address] [id number] [place] [address]- 7956 Mar, [facility] [place] [facility] [address] [id number] [place] [address]- 7350 Feb, [facility] [place] [facility] [address] [id number] [place] [address]- 9519 Feb, [facility] [place] [facility] [address] [id number] [place] [address]- 4239 Feb, [facility] [place] [facility] [address] [id number] [place] [address]- 1321 Feb, [facility] [place] [facility] [address] [id number] [place] [address]- 0455 25 Jan, 2011 [facility] [address] [id number] [place] [address]- 6330 14 Jan, 2011 [facility] [place] [facility] [address] [id number] [place] [address]- 2205 12 Jan, 2011 [facility] [address] [id number] [place] [address]- 1968 16 Dec, 2010 [facility] [address] [id number] [place] [address]- 0616 13 Oct, 2010 [facility] [address] [id number] [place] [address]- 1358 24 Mar, 2010 [facility] [address] [id number] [place] [address]- 7656 Feb, [facility] [address] [id number] [place] [address]- 4872 Feb, [facility] [address] [id number] [place] [address]- 9516 16 May, 2009 [facility] [address] [id number] [place] [address]- 6291 Apr, [facility] [address] [facility] [id number] [place] [address]- 2722 29 Mar, 2009 [facility] [address] [id number] [place] [address]- 8257 30 Jan, 2009 [facility] [address] [id number] [place] [address]- 4389 15 Oct, 2008 [facility] [place] [facility] [address] [id number] [place] [address]- 8586 16 Jul, 2008 [facility] [place] [facility] [address] [id number] [place] [address]- 2546 04 Mar, 2008 [facility] [place] [facility] [address] [id number] [place] [address]- 2332 Feb, [facility] [address] [facility] [id number] [place] [address]- 6925 Jan, IMMUNIZATIONS No Known Immunizations SOCIAL HISTORY Never Assessed REASON FOR VISIT Requests return call PLAN OF CARE VITAL SIGNS MEDICATIONS Medication Instructions Dosage Frequency Start Date End Date Duration Status Amitriptyline HCl 75 MG Orally Once a day, at night. 1 tablet Active RESULTS No Results PROCEDURES No Known [...]
--- OUTSIDE RECORDS SUMMARY | 2018-07-05 12:38 | XMS REPORT ---
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 Active 01162585 Problem Polyneuropathy G62.9 Active 71873329 Problem Other male erectile dysfunction N52.8 Active 857964421 Problem Constipation K59.00 Active 56961627 Problem Type 2 diabetes mellitus with 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 E11.65 Active 730631207 Problem Controlled type 2 diabetes mellitus without complication, without long -term current use of insulin E11.9 Active 980213898 Problem [facility] current use of insulin Z79.4 Active 119693155 Problem Neuropathy G62.9 Active 137517404 Problem Obstructive sleep apnea G47.33 Active 20154886 Problem Hypertension, benign I10 Active 63927609 Problem Uncontrolled type 2 diabetes mellitus without complication, without long-term current use of insulin E11.65 Active 283505462 Problem Stress incontinence of urine N39.3 Active 75064891 Problem Fibromyalgia M79.7 Active [id number] ALLERGIES No Information ENCOUNTERS Encounter Location Date Diagnosis [facility] [id number] [place] [address] 78181- 5600 Dec, [facility] [address] [address] 12[address] Nov, Therapeutic drug monitoring Z51.81 ; Fibromyalgia M79.7 and Controlled type 2 diabetes mellitus without complication, without long-term current use of insulin E11.9 [facility] [address] [address] 9394 Nov, [facility] [id number] [place] [address] 15205- 0243 Nov, [facility] [address] [address]- 5929 Nov, [facility] [id number] [place] [address] 28258- 1442 Nov, Type 2 diabetes mellitus with 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 E11.65 [facility] [address] [place] [address] 72595- 9770 Nov, [facility] [id number] [place] [address] 60121- 4084 Nov, [facility] [address] [place] [address] 49474- 3594 Nov, Constipation K59.00 [facility] [id number] [place] [address] 10359- 0194 Oct, Diabetes type 2, controlled E11.9 [facility] [id number] [place] [address] 31568- 1398 Oct, Type 2 diabetes mellitus with 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 E11.65 ; [facility] current use of insulin Z79.4 and Neuropathy G62.9 [facility] [address] [place] [address] 70634- 4519 Oct, [facility] [address] [address]- 2282 Oct, [facility] [address] [address]- 5078 Oct, [facility] [address] [address]- 3208 Oct, [facility] [address] [place] [address] 13193- 5739 Oct, [facility] [address] [address]- 0789 Oct, [facility] [address] [address]- 1992 Oct, [facility] [address] [address] 2546 Sep, [facility] [id number] [place] [address] 45024 2546 Sep, Uncontrolled type 2 diabetes mellitus without complication, without long-term current use of insulin E11.65 [facility] [address] [place] [address] 38445 2546 Sep, Hypertension, benign I10 ; Fibromyalgia M79.7 ; Uncontrolled type 2 diabetes mellitus without complication, without long-term current use of insulin E11.65 and Controlled type 2 diabetes mellitus without complication, without long-term current use of insulin E11.9 [facility] [id number] [place] [address] 26421 2546 Sep, [facility] [id number] [place] [address] 21588 2546 Sep, Uncontrolled type 2 diabetes mellitus without complication, without long-term current use of insulin E11.65 [facility] [address] [address] 2546 Sep, [facility] [id number] [address] 2546 Sep, [facility] [address] [address] 2546 Sep, Uncontrolled type 2 diabetes mellitus without complication, without long-term current use of insulin E11.65 and Fibromyalgia M79.7 [facility] [address] [address] 2546 August, [facility] [address] [address] 2546 August, [facility] [id number] [address] 2546 August, [facility] [address] [address] 2546 August, Fibromyalgia M79.7 [facility] [id number] [place] [address] 55031- 4276 Jul, Hypertension, benign I10 [facility] [address] 42276- 0572 Jul, Fibromyalgia M79.7 [facility] [address] 48653- 1855 Jul, [facility] [address] 29773- 1529 Jun, [facility] [address] 09748- 3803 Jun, Hypertension, benign I10 ; Arthritis M19.90 ; 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 [address] 9[address]22 -8844 Jun, Acute nasopharyngitis J00 and BMI 50.0-59.9, adult Z68.43 [facility] [address] 49813- 0114 Jun, Fibromyalgia M79.7 [facility] [id number] [place] [address] 28491- 8280 May, [facility] [address] 34951- 5198 May, Fibromyalgia M79.7 [facility] [address] 58106- 4585 Apr, Fibromyalgia M79.7 [facility] [address] 21426- 5254 Apr, [facility] [address] 62407- 8475 Apr, [facility] [address] 00952- 3014 Apr, Arthritis M19.90 [facility] [id number] [place] [address] 87249- 1516 Apr, Arthritis M19.90 [facility] [id number] [place] [address] 87001 2549 10 Apr, 2017 Arthritis M19.90 and Controlled type 2 diabetes mellitus without complication, without long-term current use of insulin E11.9 [facility] [address] 22204- 6203 Apr, [facility] [id number] [place] [address] 43110- 8188 Apr, Fibromyalgia M79.7 [facility] [id number] [place] [address] 14457- 9809 Mar, [facility] [address] 98778- 1420 Mar, [facility] [id number] [place] [address] 85808- 0557 Mar, Fibromyalgia M79.7 [facility] [id number] [place] [address] 80206- 1477 Feb, [facility] [id number] [place] [address] 61943- 6155 Feb, [facility] [id number] [place] [address] 27363- 8444 Feb, [facility] [id number] [place] [address] 79918 2543 Feb, Fibromyalgia M79.7 [facility] [id number] [place] [address] 16959- 9809 Feb, Diabetes type 2, uncontrolled E11.65 and Encounter for immunization Z23 [facility] [id number] [place] [address] 88588- 7479 Jan, [facility] [address] [address]- 5580 Jan, Fibromyalgia M79.7 [facility] [id number] [place] [address] 32528- 9356 Dec, [facility] [id number] [address]- 1139 Dec, Fibromyalgia M79.7 [facility] [id number] [place] [address] 43362- 7027 Nov, [facility] [id number] [place] [address] 41798- 5029 Nov, [facility] [id number] [place] [address] 41481- 8575 Nov, 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 and Polyneuropathy G62.9 [facility] [id number] [place] [address] 88548- 1570 Nov, [facility] [address] [place] [address] 13983- 3427 Nov, [facility] [id number] [place] [address] 09721- 5623 Oct, Diabetes type 2, uncontrolled E11.65 [facility] [id number] [address]- 1359 Oct, Diabetes type 2, uncontrolled E11.65 ; Polyneuropathy G62.9 and Pain in right wrist M25.531 [facility] [address] [address]- 8011 Oct, [facility] [id number] [place] [address] 40895- 2169 Oct, Pain in left shoulder M25.512 [facility] [address] [address]- 9873 Sep, [facility] [id number] [place] [address] 62170- 7878 Sep, Pain in left shoulder M25.512 [facility] [address] [address]- 4295 Sep, [facility] [id number] [place] [address] 46411- 8056 August, Pain in left shoulder M25.512 [facility] [id number] [place] [address] 54784- 7919 Jul, [facility] [id number] [place] [address] 26683- 9875 Jul, [facility] [id number] [place] [address] 32175- 0670 Jul, Pain in left shoulder M25.512 [facility] [id number] [place] [address] 74362- 5992 Jun, [facility] [id number] [place] [address] 63823- 7144 Jun, [facility] [id number] [place] [address] 75951- 9518 Jun, Diabetes type 2, uncontrolled E11.65 ; Fibromyalgia M79.7 and Arthritis M19.90 [facility] [address] [address]- 1973 Jun, Pain in left shoulder M25.512 [facility] [id number] [address]- 8037 May, [facility] [address] [address]- 1032 May, Diabetes type 2, controlled E11.9 [facility] [id number] [place] [address] 92761- 0516 17 May, 2016 [facility] [address] [address]- 2373 May, Uncontrolled type 2 diabetes mellitus without complication, without long-term current use of insulin E11.65 [facility] [address] [address]- 8729 15 May, 2016 Pain in left shoulder M25.512 [facility] [address] [address]- 4635 03 May, 2016 Diabetes type 2, controlled E11.9 and Uncontrolled type 2 diabetes mellitus without complication, without long-term current use of insulin E11.65 [facility] [address] [address]- 8456 Apr, [facility] [address] [address]- 2897 Apr, [facility] [address] [place] [address] 08424- 9933 Mar, [facility] [id number] [place] [address] 45859- 4868 Mar, [facility] [address] [address]- 6616 Mar, [facility] [address] [address]- 8647 Feb, [facility] [place] [facility] [address] [address] Feb, Dental examination Z01.20 [facility] [address] [address]- 9362 Jan, [facility] [address] [address]- 5727 Dec, [facility] [address] [address]- 3154 Dec, [facility] [address] [address]- 7440 Dec, [facility] [address] [address]- 7367 Dec, Diabetes type 2, controlled E11.9 [facility] [address] [id number] [place] [address]- 0021 Nov, [facility] [address] [id number] [place] [address]- 8026 Nov, [facility] [address] [id number] [place] [address]- 2721 Nov, [facility] [address] [id number] [place] [address]- 6749 Nov, [facility] [address] [id number] [place] [address]- 8069 Oct, [facility] [address] [id number] [place] [address]- 5805 Oct, [facility] [address] [facility] [id number] [place] [address]- 6493 Oct, [facility] [address] [facility] [id number] [place] [address]- 8898 Sep, [facility] [address] [facility] [id number] [place] [address]- 9691 Sep, Diabetes type 2, controlled E11.9 [facility] [address] [facility] [id number] [place] [address]- 2396 Sep, Diabetes type 2, controlled E11.9 [facility] [address] [facility] [id number] [place] [address]- 8357 August, [facility] [address] [id number] [place] [address]- 0029 August, [facility] [address] [facility] [id number] [place] [address]- 5913 August, Type 2 diabetes mellitus without complication E11.9 and Pain in left shoulder M25.512 [facility] [address] [facility] [id number] [place] [address]- 0041 Jul, [facility] [id number] [place] [address] 84991- 6710 Jul, Diabetes type 2, controlled E11.9 and Hypertension, benign I10 [facility] [id number] [place] [address] 01515- 6161 Jun, [facility] [id number] [place] [address] 78681- 1986 Jun, [facility] [address] 94423- 1787 Jun, Diabetes 250.00 [facility] [id number] [place] [address] 52592- 2898 Jun, [facility] [id number] [place] [address] 60922- 5410 May, Diabetes type 2, uncontrolled E11.65 [facility] [id number] [place] [address] 54241- 5458 May, [facility] [id number] [place] [address] 67378- 7575 Apr, Type 2 diabetes mellitus without complication E11.9 [facility] [id number] [place] [address] 74367- 2633 Apr, Encounter for immunization Z23 [facility] [id number] [place] [address] 45462- 5350 Apr, [facility] [id number] [place] [address] 26368- 2686 Mar, [facility] [id number] [place] [address] 41026- 9096 Mar, [facility] [id number] [place] [address] 94465- 3079 Mar, [facility] [id number] [place] [address] 03875- 1089 Feb, [facility] [id number] [place] [address] 80598- 8594 Jan, [facility] [address] [address]- 4827 Jan, [facility] [address] 1030 Jan, [facility] [address] 0683 Dec, Diabetes 250.00 and COPD (chronic obstructive pulmonary disease) 496 [facility] [address] [address]- 6570 Dec, [facility] [id number] [place] [address] 30812- 7018 Dec, [facility] [id number] [address]- 5608 Nov, [facility] [id number] [place] [address] 21390- 7689 Oct, Diabetes 250.00 [facility] [address] [address]- 4463 Sep, [facility] [id number] [address]- 6012 Sep, [facility] [address] [address]- 8761 Sep, [facility] [address] [address]- 8507 Sep, Diabetes 250.00 [facility] [address] [address]- 3901 Sep, [facility] [id number] [place] [address] [id number]- 2469 Sep, [facility] [address] 2814 August, Hypertension, essential, benign 401.1 ; Coronary atherosclerosis of [place] coronary artery 414.01 and Diabetic neuropathy associated with type 2 diabetes mellitus 250.60 [facility] [place] [facility] [address] [facility] [id number] [place] [address]- 7406 29 Jul, 2014 [facility] [place] [facility] [address] [facility] [id number] [place] [address]- 1609 14 Jul, 2014 [facility] [place] [facility] [id number] [address]- 8767 Jul, [facility] [place] [facility] [address] [facility] [id number] [address]- 2779 Jun, [facility] [place] [facility] [address] [facility] [id number] [place] [address]- 1756 Jun, [facility] [place] [facility] [address] [facility] [id number] [place] [address]- 5810 Jun, [facility] [place] [facility] [address] [address]- 3888 Jun, [facility] [place] [facility] [address] [facility] [id number] [place] [address]- 8446 Jun, [facility] [place] [facility] [id number] [address]- 8470 May, [facility] [place] [facility] [address] [address]- 8022 May, [facility] [place] [facility] [address] [address]- 4035 May, [facility] [place] [facility] [address] [address]- 2168 May, [facility] [place] [facility] [id number] [address]- 6707 May, [facility] [place] [facility] [address] [facility] [id number] 4474 May, [facility] [place] [facility] [address] 8752 May, [facility] [place] [facility] [address] [id number] [place] [address]- 0302 Apr, [facility] [place] [facility] [address] [id number] [place] [address]- 0148 Apr, [facility] [place] [facility] [address] [id number] [place] [address]- 2300 Apr, [facility] [place] [facility] [address] [id number] [place] [address]- 3839 Apr, [facility] [place] [facility] [address] [id number] [place] [address]- 1692 Mar, [facility] [place] [facility] [address] [id number] [place] 3060 Mar, [facility] [place] [facility] [address] [id number] [place] 0445 Mar, [facility] [place] [facility] [address] [id number] [place] [address]- 1779 Mar, [facility] [place] [facility] [address] [id number] [place] [address]- 3855 Feb, [facility] [place] [facility] [address] [id number] [place] [address]- 0705 Feb, [facility] [place] [facility] [address] [facility] [id number] [place] [address]- 3786 Feb, [facility] [place] [facility] [address] [id number] [place] [address]- 4499 Feb, [facility] [place] [facility] [address] [id number] [place] [address]- 5940 Feb, [facility] [place] [facility] [address] [id number] [place] [address] Feb, [facility] [place] [facility] [address] [id number] [place] [address] Feb, [facility] [place] [facility] [address] [id number] [place] [address] Jan, [facility] [place] [facility] [address] [id number] [place] [address] Jan, [facility] [place] [facility] [address] [id number] [place] [address] Dec, [facility] [place] [facility] [address] [id number] [place] [address] Dec, [facility] [place] [facility] [address] [id number] [place] [address] Dec, [facility] [place] [facility] [address] [id number] [place] [address] Dec, [facility] [place] [facility] [address] [id number] [place] [address] Dec, [facility] [place] [facility] [address] [id number] [place] [address] Dec, [facility] [place] [facility] [address] [id number] [place] [address] Dec, [facility] [place] [facility] [address] [id number] [place] [address] Dec, [facility] [place] [facility] [address] [id number] [place] [address] Nov, [facility] [place] [facility] [address] [id number] [place] [address] Nov, [facility] [place] [facility] [address] [id number] [address] Nov, [facility] [place] [facility] [address] [id number] [place] [address] Nov, [facility] [place] [facility] [address] [id number] [place] [address] Oct, [facility] [place] [facility] [address] [id number] [place] [address] Oct, [facility] [place] [facility] [address] [id number] [place] [address] Oct, [facility] [place] [facility] [address] [id number] [place] [address] Oct, [facility] [place] [facility] [address] [id number] [place] [address] Oct, [facility] [place] [facility] [address] [id number] [place] [address] Oct, [facility] [place] [facility] [address] [id number] [place] [address] Oct, [facility] [place] [facility] [address] [id number] [place] [address] Oct, [facility] [place] [facility] [address] [id number] [place] [address] Sep, [facility] [place] [facility] [address] [id number] [place] [address] Sep, [facility] [place] [facility] [address] [id number] [place] [address] August, [facility] [place] [facility] [address] [id number] [place] [address] August, [facility] [place] [facility] [address] [id number] [place] [address] Jul, [facility] [place] [facility] [address] [id number] [place] [address] Jul, [facility] [place] [facility] [address] [id number] [place] [address] Jul, [facility] [place] [facility] [address] [id number] [place] [address] Jul, [facility] [place] [facility] [address] [id number] [place] [address] Jul, [facility] [place] [facility] [address] [id number] [place] [address] Jul, [facility] [place] [facility] [address] [id number] [place] [address] Jul, [facility] [place] [facility] [address] [id number] [place] [place] [address] Jul, [facility] [place] [facility] [address] [id number] [place] [address] Jun, [facility] [place] [facility] [address] [id number] [place] [address] Jun, [facility] [place] [facility] [address] [id number] [place] [address] 111[address] Jun, [facility] [place] [facility] [address] [id number] [place] [address] Jun, [facility] [place] [facility] [address] [id number] [place] [address] May, [facility] [place] [facility] [address] [id number] [place] [address] 92[address] May, [facility] [place] [facility] [address] [id number] [place] [address] 9077 Apr, [facility] [place] [facility] [address] [id number] [place] [address]- 5[address] Apr, [facility] [place] [facility] [address] [id number] [place] [address] Mar, [facility] [place] [facility] [address] [id number] [place] [address] 8778 Mar, [facility] [place] [facility] [address] [id number] [place] [address] 4244 Mar, [facility] [place] [facility] [address] [id number] [place] [address] 8864 Mar, [facility] [place] [facility] [address] [id number] [place] [address] Mar, [facility] [place] [facility] [address] [id number] [address] Mar, [facility] [place] [facility] [address] [id number] [place] [address] 6[address] Feb, [facility] [place] [facility] [address] [id number] [place] [address] Feb, [facility] [place] [facility] [address] [id number] [place] [address]- 5091 Feb, [facility] [place] [facility] [address] [id number] [place] [address]- 47[address] Feb, [facility] [place] [facility] [address] [id number] [place] [address]- 2455 Feb, [facility] [place] [facility] [address] [id number] [place] [address]- 9533 Feb, [facility] [place] [facility] [address] [id number] [place] [address] 27[address] Feb, [facility] [place] [facility] [address] [id number] [place] [address]- 7822 Feb, [facility] [place] [facility] [address] [id number] [place] [address]4 15 Jan, 2013 [facility] [place] [facility] [address] [id number] [place] [address] 38[address] 15 Jan, 2013 [facility] [place] [facility] [address] [id number] [place] [address]- 60[address] 14 Jan, 2013 [facility] [place] [facility] [address] [id number] [place] [address]- 1381 14 Jan, 2013 [facility] [place] [facility] [address] [id number] [place] [address]- [address] 18 Dec, 2012 [facility] [place] [facility] [address] [id number] [place] [address]- [address]98 13 Dec, 2012 [facility] [place] [facility] [address] [id number] [place] [address] 2012 [facility] [place] [facility] [address] [id number] [place] [address]- [address] Nov, [facility] [address] [id number] [place] [address]- 1490 Nov, [facility] [address] [id number] [place] [address] 2546 Oct, [facility] [address] [id number] [place] [address]- 5767 Oct, [facility] [address] [id number] [place] [address] 4759 Oct, [facility] [address] [id number] [place] [address]- 0966 Sep, [facility] [address] [id number] [place] [address]- 8227 Sep, [facility] [address] [id number] [place] [address]- 3599 Sep, [facility] [address] [id number] [place] [address]- 2244 Sep, [facility] [address] [id number] [place] [address]- 2917 Sep, [facility] [address] [id number] [place] [address]- 7485 Sep, [facility] [address] [id number] [place] [address] 1867 August, [facility] [address] [id number] [place] [address]- 8448 August, [facility] [place] [facility] [address] [id number] [place] [address]- 4734 August, [facility] [address] [id number] [place] [address]- 7266 August, [facility] [address] [id number] [place] [address]- 0694 August, [facility] [address] [id number] [place] [address]- 3378 August, [facility] [address] [id number] [place] [address]- 2228 August, [facility] [address] [id number] [place] [address]- 5087 Jul, [facility] [address] [id number] [place] [address]- 6866 Jul, [facility] [address] [id number] [place] [address]- 3716 Jun, [facility] [address] [id number] [place] [address]- 3902 Jun, [facility] [address] [id number] [place] [address]- 7965 May, [facility] [address] [id number] [place] [address]- 4520 May, [facility] [address] [id number] [place] [address]- 5673 Apr, [facility] [address] [id number] [place] [address]- 1474 Mar, [facility] [address] [id number] [place] [address]- 0950 Mar, [facility] [place] [facility] [address] [id number] [place] [address]- 0350 Mar, [facility] [place] [facility] [address] [id number] [place] [address]- 7977 Mar, [facility] [place] [facility] [address] [id number] [place] [address]- 8647 Mar, [facility] [place] [facility] [address] [id number] [place] [address]- 7638 Mar, [facility] [address] [id number] [place] [address]- 3675 Feb, [facility] [place] [facility] [address] [id number] [place] [address]- 8642 Feb, [facility] [place] [facility] [address] [id number] [place] [address]- 0717 Feb, [facility] [place] [facility] [address] [id number] [place] [address]- 8096 Feb, [facility] [place] [facility] [address] [id number] [place] [address]- 5119 Feb, [facility] [place] [facility] [address] [id number] [place] [address]- 8409 Feb, [facility] [place] [facility] [address] [id number] [place] [address]- 4410 Feb, [facility] [place] [facility] [address] [id number] [place] [address]- 4148 Feb, [facility] [place] [facility] [address] [id number] [place] [address]- 5452 Jan, [facility] [place] [facility] [address] [id number] [place] [address]- 5268 Jan, [facility] [place] [facility] [address] [facility] [id number] [place] [address]- 8434 28 Dec, 2011 [facility] [place] [facility] [address] [id number] [place] [address]- 0096 19 Dec, 2011 [facility] [place] [facility] [address] [id number] [place] [address]- 254 18 Dec, 2011 [facility] [place] [facility] [address] [id number] [place] [address]- 6826 18 Dec, 2011 [facility] [place] [facility] [address] [id number] [place] [address]- 8756 04 Dec, 2011 [facility] [place] [facility] [address] [id number] [place] [address]- 9577 Nov, [facility] [place] [facility] [address] [id number] [place] [address]- 4410 Oct, [facility] [place] [facility] [address] [id number] [place] [address]- 7934 Oct, [facility] [place] [facility] [address] [id number] [place] [address]- 1475 Sep, [facility] [place] [facility] [address] [id number] [place] [address]- 3881 Sep, [facility] [place] [facility] [address] [id number] [place] [address]- 2234 Sep, [facility] [place] [facility] [address] [id number] [place] [address]- 1157 Sep, [facility] [place] [facility] [address] [id number] [place] [address]- 5293 Sep, [facility] [place] [facility] [address] [id number] [place] [address]- 0476 Sep, [facility] [place] [facility] [address] [id number] [place] [address]- 3262 Sep, [facility] [place] [facility] [address] [id number] [place] [address]- 4769 Sep, [facility] [place] [facility] [address] [id number] [place] [address]- 7930 August, [facility] [place] [facility] [address] [id number] [place] [address]- 0227 August, [facility] [place] [facility] [address] [id number] [place] [address]- 3152 August, [facility] [place] [facility] [address] [id number] [place] [address]- 5159 Jul, [facility] [place] [facility] [address] [id number] [place] [address]- 2521 Jul, [facility] [place] [facility] [address] [id number] [place] [address]- 4816 Jun, [facility] [address] [id number] [place] [address]- 2633 Jun, [facility] [place] [facility] [address] [id number] [place] [address]- 8623 Jun, [facility] [place] [facility] [address] [id number] [place] [address]- 9550 Jun, [facility] [place] [facility] [address] [id number] [place] [address]- 4042 May, [facility] [place] [facility] [address] [id number] [place] [address]- 6068 May, [facility] [place] [facility] [address] [id number] [place] [address]- 4181 Apr, [facility] [address] [id number] [place] [address]- 7909 Apr, [facility] [place] [facility] [address] [id number] [place] [address]- 6485 Apr, [facility] [address] [id number] [place] [address]- 5438 Mar, [facility] [place] [facility] [address] [id number] [place] [address]- 4544 Mar, [facility] [place] [facility] [address] [id number] [place] [address]- 1776 Mar, [facility] [place] [facility] [address] [id number] [place] [address]- 1779 Feb, [facility] [place] [facility] [address] [id number] [place] [address]- 0168 Feb, [facility] [place] [facility] [address] [id number] [place] [address]- 9020 Feb, [facility] [place] [facility] [address] [id number] [place] [address]- 3815 Feb, [facility] [place] [facility] [address] [id number] [place] [address]- 2743 25 Jan, 2011 [facility] [address] [id number] [place] [address]- 6677 14 Jan, 2011 [facility] [place] [facility] [address] [id number] [place] [address]- 7990 12 Jan, 2011 [facility] [address] [id number] [place] [address]- 3984 16 Dec, 2010 [facility] [address] [id number] [place] [address]- 0450 13 Oct, 2010 [facility] [address] [id number] [place] [address]- 6764 24 Mar, 2010 [facility] [address] [id number] [place] [address]- 0268 Feb, [facility] [address] [id number] [place] [address]- 4390 Feb, [facility] [address] [id number] [place] [address]- 8440 16 May, 2009 [facility] [address] [id number] [place] [address]- 4063 Apr, [facility] [address] [facility] [id number] [place] [address]- 2564 29 Mar, 2009 [facility] [address] [id number] [place] [address]- 7220 30 Jan, 2009 [facility] [address] [id number] [place] [address]- 1509 15 Oct, 2008 [facility] [place] [facility] [address] [id number] [place] [address]- 4922 16 Jul, 2008 [facility] [place] [facility] [address] [id number] [place] [address]- 2546 04 Mar, 2008 [facility] [place] [facility] [address] [id number] [place] [address]- 4955 Feb, [facility] [address] [facility] [id number] [place] [address]- 6490 Jan, IMMUNIZATIONS No Known Immunizations SOCIAL HISTORY [...]
--- OUTSIDE RECORDS SUMMARY | 2018-07-05 12:39 | XMS REPORT ---
Author Author KATHYA FISCHER Organization [facility] Address [address] [place] [address] Care Team Providers Care Systems Spec Name Role Phone KATHYA FISCHER Unavailable PROBLEMS Type Condition ICD9-CM Code LLA08-ZH Code Onset Dates Condition Status SNOMED Code Problem Arthritis M19.90 Active 8389514 Problem 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 Active 25191886 Problem Polyneuropathy G62.9 Active 78994072 Problem Other male erectile dysfunction N52.8 Active 324718346 Problem Constipation K59.00 Active 64973938 Problem Type 2 diabetes mellitus with 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 E11.65 Active 293803534 Problem Controlled type 2 diabetes mellitus without complication, without long -term current use of insulin E11.9 Active 711150995 Problem longterm current use of insulin Z79.4 Active 909970035 Problem Neuropathy G62.9 Active 375373978 Problem Obstructive sleep apnea G47.33 Active 12959212 Problem Hypertension, benign I10 Active 66786324 Problem Uncontrolled type 2 diabetes mellitus without complication, without long-term current use of insulin E11.65 Active 429537088 Problem Stress incontinence of urine N39.3 Active 38823681 Problem Fibromyalgia M79.7 Active 255562670 ALLERGIES No Information ENCOUNTERS Encounter Location Date Diagnosis [facility] [id number] [place] [address] 55432- 8494 Dec, [facility] [address] [place] [address] 43711- 5668 Nov, Therapeutic drug monitoring Z51.81 ; Fibromyalgia M79.7 and Controlled type 2 diabetes mellitus without complication, without long-term current use of insulin E11.9 [facility] [address] [address] 5901 Nov, [facility] [id number] [place] [address] 15411- 7720 Nov, [facility] [address] [address]- 8892 Nov, [facility] [id number] [place] [address] 17714- 1956 Nov, Type 2 diabetes mellitus with 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 E11.65 [facility] [address] [place] [address] 37373- 2120 Nov, [facility] [address] [place] [address] 15575- 2357 Nov, [facility] [address] [place] [address] 91329- 2269 Nov, Constipation K59.00 [facility] [id number] [place] [address] 65806- 8510 Oct, Diabetes type 2, controlled E11.9 [facility] [id number] [place] [address] 46666- 7410 Oct, Type 2 diabetes mellitus with 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 E11.65 ; longterm current use of insulin Z79.4 and Neuropathy G62.9 [facility] [address] [place] [address] 89804- 9377 Oct, [facility] [address], [place] [address]- 3268 Oct, [facility] [address] [address]- 7747 Oct, [facility] [address] [place] [address]- 3086 Oct, [facility] [address] [place] [address] 68915- 9866 Oct, [facility] [address], [place] [address]- 0659 Oct, [facility] [address] [place] [address]- 1676 Oct, [facility] [address] [address] 2546 Sep, [facility] [id number] [place] [address] 46570 2546 Sep, Uncontrolled type 2 diabetes mellitus without complication, without long-term current use of insulin E11.65 [place] [facility] [address] [place] [address] 91160 2546 Sep, Hypertension, benign I10 ; Fibromyalgia M79.7 ; Uncontrolled type 2 diabetes mellitus without complication, without long-term current use of insulin E11.65 and Controlled type 2 diabetes mellitus without complication, without long-term current use of insulin E11.9 [place] [facility] [id number] [place] [address] 36544 2546 Sep, [facility] [facility] [id number] [place] [address] 31682 2546 Sep, Uncontrolled type 2 diabetes mellitus without complication, without long-term current use of insulin E11.65 [facility] [address], [place] [address] 2546 Sep, [facility] [id number] [address] 2546 Sep, [facility] [address], [place] [address] 2546 Sep, Uncontrolled type 2 diabetes mellitus without complication, without long-term current use of insulin E11.65 and Fibromyalgia M79.7 [facility] [address], [place] [address] 2546 August, [facility] [address], [place] [address] 2546 August, [facility] [id number], [place] [address] 2546 August, [facility] [address], [place] [address] 2546 August, Fibromyalgia M79.7 [facility] [id number] [place] [address] 53658- 6204 Jul, Hypertension, benign I10 [facility] [address] 24759- 1135 Jul, Fibromyalgia M79.7 [facility] [address] 19246- 7923 Jul, [facility] [address] 91896- 4041 Jun, [facility] [address] 02274- 8439 Jun, Hypertension, benign I10 ; Arthritis M19.90 ; 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 and Uncontrolled type 2 diabetes mellitus without complication, without long-term current use of insulin E11.65 [facility] [address] 24749 -4008 Jun, Acute nasopharyngitis J00 and BMI 50.0-59.9, adult Z68.43 [facility] [address] 76598- 2898 Jun, Fibromyalgia M79.7 [facility] [id number] [place] [address] 37213- 0045 May, [facility] [address] 83794- 8542 May, Fibromyalgia M79.7 [facility] [address] 71116- 3038 Apr, Fibromyalgia M79.7 [facility] [address] 85737- 0245 Apr, [facility] [address] 21178- 1507 Apr, [facility] [address] 02478- 7401 Apr, Arthritis M19.90 [facility] [id number] [place] [address] 29862- 4566 Apr, Arthritis M19.90 [facility] [id number] [place] [address] 08840 2547 10 Apr, 2017 Arthritis M19.90 and Controlled type 2 diabetes mellitus without complication, without long-term current use of insulin E11.9 [facility] [address] 87863- 8342 Apr, [facility] [id number] [place] [address] 47855- 9345 Apr, Fibromyalgia M79.7 [facility] [id number] [place] [address] 05462- 1126 Mar, [facility] [address] 99272- 9382 Mar, [facility] [id number] [place] [address] 04249- 7880 Mar, Fibromyalgia M79.7 [facility] [id number] [place] [address] 11500- 3700 Feb, [facility] [id number] [place] [address] 45017- 6241 Feb, [facility] [id number] [place] [address] 83355- 6268 Feb, [facility] [id number] [place] [address] 07930 2544 Feb, Fibromyalgia M79.7 [facility] [id number] [place] [address] 53684- 9709 Feb, Diabetes type 2, uncontrolled E11.65 and Encounter for immunization Z23 [facility] [id number] [place] [address] 99467- 7144 Jan, [facility] [address] [address]- 0959 Jan, Fibromyalgia M79.7 [facility] [id number] [place] [address] 04030- 3136 Dec, [facility] [id number] [address]- 0576 Dec, Fibromyalgia M79.7 [facility] [id number] [place] [address] 12039- 1737 Nov, [facility] [id number] [place] [address] 06336- 8270 Nov, [facility] [id number] [place] [address] 87561- 1994 Nov, 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 and Polyneuropathy G62.9 [facility] [id number] [place] [address] 71969- 1879 Nov, [facility] [address] [place] [address] 40607- 9823 Nov, [facility] [id number] [place] [address] 05384- 9611 Oct, Diabetes type 2, uncontrolled E11.65 [facility] [id number] [address]- 9647 Oct, Diabetes type 2, uncontrolled E11.65 ; Polyneuropathy G62.9 and Pain in right wrist M25.531 [facility] [address], [place] [address]- 7368 Oct, [facility] [id number] [place] [address] 41835- 4906 Oct, Pain in left shoulder M25.512 [facility] [address], [place] [address]- 1295 Sep, [facility] [id number] [place] [address] 98440- 3453 Sep, Pain in left shoulder M25.512 [facility] [address], [place] [address]- 9055 Sep, [facility] [id number] [place] [address] 37408- 2626 August, Pain in left shoulder M25.512 [facility] [id number] [place] [address] 81597- 0766 Jul, [facility] [id number] [place] [address] 87236- 7921 Jul, [facility] [id number] [place] [address] 01447- 9115 Jul, Pain in left shoulder M25.512 [facility] [id number] [place] [address] 47077- 6791 Jun, [facility] [id number] [place] [address] 67333- 8234 Jun, [facility] [id number] [place] [address] 71839- 9762 Jun, Diabetes type 2, uncontrolled E11.65 ; Fibromyalgia M79.7 and Arthritis M19.90 [facility] [address], [place] [address]- 6526 Jun, Pain in left shoulder M25.512 [facility] [id number] [address]- 2051 May, [facility] [address], [place] [address]- 9976 May, Diabetes type 2, controlled E11.9 [facility] [id number] [place] [address] 80676- 6946 17 May, 2016 [facility] [address], [place] [address]- 3298 May, Uncontrolled type 2 diabetes mellitus without complication, without long-term current use of insulin E11.65 [facility] [address], [place] [address]- 3004 15 May, 2016 Pain in left shoulder M25.512 [facility] [address], [place] [address]- 3679 03 May, 2016 Diabetes type 2, controlled E11.9 and Uncontrolled type 2 diabetes mellitus without complication, without long-term current use of insulin E11.65 [facility] [address], [place] [address]- 8721 Apr, [facility] [address], [place] [address]- 7130 Apr, [facility] [address] [place] [address] 44900- 7361 Mar, [facility] [id number] [place] [address] 25294- 4533 Mar, [facility] [address], [place] [address]- 4481 Mar, [facility] [address], [place] [address]- 5067 Feb, [facility] [address] [address] Feb, Dental examination Z01.20 [facility] [address], [place] [address]- 9049 Jan, [facility] [address], [place] [address]- 6374 Dec, [facility] [address], [place] [address]- 8757 Dec, [facility] [address], [place] [address]- 3735 Dec, [facility] [address], [place] [address]- 7346 Dec, Diabetes type 2, controlled E11.9 [facility] [address] [id number] [place] [address]- 4774 Nov, [facility] [address] [id number] [place] [address]- 0606 Nov, [facility] [address] [id number] [place] [address]- 1918 Nov, [facility] [address] [id number] [place] [address]- 8358 Nov, [facility] [address] [id number] [place] [address]- 0280 Oct, [facility] [address] [id number] [place] [address]- 9009 Oct, [facility] [address] [facility] [id number] [place] [address]- 8103 Oct, [facility] [address] [facility] [id number] [place] [address]- 8370 Sep, [facility] [address] [facility] [id number] [place] [address]- 8858 Sep, Diabetes type 2, controlled E11.9 [facility] [address] [facility] [id number] [place] [address]- 2876 Sep, Diabetes type 2, controlled E11.9 [facility] [address] [facility] [id number] [place] [address]- 7587 August, [facility] [address] [id number] [place] [address]- 2952 August, [facility] [address] [facility] [id number] [place] [address]- 2461 August, Type 2 diabetes mellitus without complication E11.9 and Pain in left shoulder M25.512 [facility] [address] [facility] [id number] [place] [address]- 7818 Jul, [facility] [id number] [place] [address] 71352- 2576 Jul, Diabetes type 2, controlled E11.9 and Hypertension, benign I10 [facility] [id number] [place] [address] 87632- 7226 Jun, [facility] [id number] [place] [address] 34266- 6607 Jun, [facility] [address] 85361- 3858 Jun, Diabetes 250.00 [facility] [id number] [place] [address] 62721- 3600 Jun, [facility] [id number] [place] [address] 96065- 0973 May, Diabetes type 2, uncontrolled E11.65 [facility] [id number] [place] [address] 50889- 2960 May, [facility] [id number] [place] [address] 34056- 6481 Apr, Type 2 diabetes mellitus without complication E11.9 [facility] [id number] [place] [address] 99728- 2834 Apr, Encounter for immunization Z23 [facility] [id number] [place] [address] 85697- 3062 Apr, [facility] [id number] [place] [address] 55484- 1585 Mar, [facility] [id number] [place] [address] 65784- 6347 Mar, [facility] [id number] [place] [address] 68950- 9151 Mar, [facility] [id number] [place] [address] 73325- 2482 Feb, [facility] [id number] [place] [address] 54082- 8985 Jan, [facility] [address], [place] [address]- 1631 Jan, [facility] [address] 6694 Jan, [facility] [address] 2912 Dec, Diabetes 250.00 and COPD (chronic obstructive pulmonary disease) 496 [facility] [address], [place] [address]- 5465 Dec, [facility] [id number] [place] [address] 22370- 5381 Dec, [facility] [id number] [address]- 3904 Nov, [facility] [id number] [place] [address] 07981- 1713 Oct, Diabetes 250.00 [facility] [address], [place] [address]- 2139 Sep, [facility] [id number] [address]- 5977 Sep, [facility] [address], [place] [address]- 3728 Sep, [facility] [address], [place] [address]- 7577 Sep, Diabetes 250.00 [facility] [address], [place] [address]- 7762 Sep, [facility] [id number] [place] [address] 93891170- 7392 Sep, [facility] [address] 1354 August, Hypertension, essential, benign 401.1 ; Coronary atherosclerosis of comanche coronary artery 414.01 and Diabetic neuropathy associated with type 2 diabetes mellitus 250.60 [facility] [place] [facility] [address] [facility] [id number] [place] [address]- 5447 29 Jul, 2014 [facility] [place] [facility] [address] [facility] [id number] [place] [address]- 8975 14 Jul, 2014 [facility] [place] [facility] [id number] [place] [address]- 2512 Jul, [facility] [place] [facility] [address] [facility] [id number] [address]- 0016 Jun, [facility] [place] [facility] [address] [facility] [id number] [place] [address]- 2389 Jun, [facility] [place] [facility] [address] [facility] [id number] [place] [address]- 7762 Jun, [facility] [place] [facility] [address] [place] [address]- 1404 Jun, [facility] [place] [facility] [address] [facility] [id number], [place] [address]- 3420 Jun, [facility] [place] [facility] [id number] [place] [address]- 3575 May, [facility] [place] [facility] [address] [place] [address]- 8855 May, [facility] [place] [facility] [address], [place] [address]- 6644 May, [facility] [place] [facility] [address], [place] [address]- 3694 May, [facility] [place] [facility] [id number] [place] [address]- 8218 May, [facility] [place] [facility] [address] [facility] [id number] 3231 May, [facility] [place] [facility] [address] 0599 May, [facility] [place] [facility] [address] [id number] [place] [address]- 9193 Apr, [facility] [place] [facility] [address] [id number] [place] [address]- 2211 Apr, [facility] [place] [facility] [address] [id number] [place] [address]- 4135 Apr, [facility] [place] [facility] [address] [id number] [place] [address]- 8454 Apr, [facility] [place] [facility] [address] [id number] [place] [address]- 1587 Mar, [facility] [place] [facility] [address] [id number] [place] 4277 Mar, [facility] [place] [facility] [address] [id number] [place] 1928 Mar, [facility] [place] [facility] [address] [id number] [place] [address]- 1868 Mar, [facility] [place] [facility] [address] [id number] [place] [address]- 8796 Feb, [facility] [place] [facility] [address] [id number] [place] [address]- 8037 Feb, [facility] [place] [facility] [address] [facility] [id number] [place] [address]- 8459 Feb, [facility] [place] [facility] [address] [id number] [place] [address]- 3912 Feb, [facility] [place] [facility] [address] [id number] [place] [address]- 7399 Feb, [facility] [place] [facility] [address] [id number] [place] [address]- 1650 Feb, [facility] [place] [facility] [address] [id number] [place] [address]- 1956 Feb, [facility] [place] [facility] [address] [id number] [place] [address]- 7305 Jan, [facility] [place] [facility] [address] [id number] [place] [address]- 4935 Jan, [facility] [place] [facility] [address] [id number] [place] [address]- 1025 Dec, [facility] [place] [facility] [address] [id number] [place] [address]- 0878 Dec, [facility] [place] [facility] [address] [id number] [place] [address]- 0502 Dec, [facility] [place] [facility] [address] [id number] [place] [address]- 5873 Dec, [facility] [place] [facility] [address] [id number] [place] [address]- 7932 Dec, [facility] [place] [facility] [address] [id number] [place] [address]- 6729 Dec, [facility] [place] [facility] [address] [id number] [place] [address]- 0813 Dec, [facility] [place] [facility] [address] [id number] [place] [address]- 7546 Dec, [facility] [place] [facility] [address] [id number] [place] [address]- 2740 Nov, [facility] [place] [facility] [address] [id number] [place] [address]- 1955 Nov, [facility] [place] [facility] [address] [id number], [place] [address]- 5387 Nov, [facility] [place] [facility] [address] [id number] [place] [address]- 1174 Nov, [facility] [place] [facility] [address] [id number] [place] [address]- 8571 Oct, [facility] [place] [facility] [address] [id number] [place] [address]- 9016 Oct, [facility] [place] [facility] [address] [id number] [place] [address] Oct, [facility] [place] [facility] [address] [id number] [place] [address] Oct, [facility] [place] [facility] [address] [id number] [place] [address] Oct, [facility] [place] [facility] [address] [id number] [place] [address] Oct, [facility] [place] [facility] [address] [id number] [place] [address] Oct, [facility] [place] [facility] [address] [id number] [place] [address] Oct, [facility] [place] [facility] [address] [id number] [place] [address] Sep, [facility] [place] [facility] [address] [id number] [place] [address] Sep, [facility] [place] [facility] [address] [id number] [place] [address] August, [facility] [place] [facility] [address] [id number] [place] [address] August, [facility] [place] [facility] [address] [id number] [place] [address] Jul, [facility] [place] [facility] [address] [id number] [place] [address] Jul, [facility] [place] [facility] [address] [id number] [place] [address] Jul, [facility] [place] [facility] [address] [id number] [place] [address] Jul, [facility] [place] [facility] [address] [id number] [place] [address] Jul, [facility] [place] [facility] [address] [id number] [place] [address] Jul, [facility] [place] [facility] [address] [id number] [place] [address] Jul, [facility] [place] [facility] [address] [id number] [place] [address] Jul, [facility] [place] [facility] [address] [id number] [place] [address] Jun, [facility] [place] [facility] [address] [id number] [place] [address] Jun, [facility] [place] [facility] [address] [id number] [place] [address] Jun, [facility] [place] [facility] [address] [id number] [place] [address] Jun, [facility] [place] [facility] [address] [id number] [place] [address] May, [facility] [place] [facility] [address] [id number] [place] [address] May, [facility] [place] [facility] [address] [id number] [place] [address] Apr, [facility] [place] [facility] [address] [id number] [place] [address] Apr, [facility] [place] [facility] [address] [id number] [place] [address] Mar, [facility] [place] [facility] [address] [id number] [place] [address] Mar, [facility] [place] [facility] [address] [id number] [place] [address] Mar, [facility] [place] [facility] [address] [id number] [place] [address] Mar, [facility] [place] [facility] [address] [id number] [place] [address] [address] Mar, [facility] [place] [facility] [address] [id number], [place] [address] Mar, [facility] [place] [facility] [address] [id number] [place] [address] Feb, [facility] [place] [facility] [address] [id number], [place] [address] Feb, [facility] [place] [facility] [address] [id number] [place] [address] Feb, [facility] [place] [facility] [address] [id number], [place] [address] Feb, [facility] [place] [facility] [address] [id number] [place] [address] Feb, [facility] [place] [facility] [address] [id number] [place] [address] 30[address] Feb, [facility] [place] [facility] [address] [id number], [place] [address] Feb, [facility] [place] [facility] [address] [id number] [place] [address] 26[address] Feb, [facility] [place] [facility] [address] [id number], [place] [address] 15 Jan, 2013 [facility] [place] [facility] [address] [id number], [place] [address] 8[address] 15 Jan, 2013 [facility] [place] [facility] [address] [id number], [place] [address] 1094 14 Jan, 2013 [facility] [place] [facility] [address] [id number], [place] [address] 14 Jan, 2013 [facility] [place] [facility] [address] [id number], [place] [address] 18 Dec, 2012 [facility] [place] [facility] [address] [id number], [place] [address] 13 Dec, 2012 [facility] [place] [facility] [address] [id number], [place] [address] 2012 [facility] [place] [facility] [address] [id number] [place] [address] Nov, [facility] [address] [id number] [place] [address] 1734 Nov, [facility] [address] [id number] [place] [address] 2546 Oct, [facility] [address] [id number] [place] [address] 3613 Oct, [facility] [address] [id number] [place] [address] 7146 Oct, [facility] [address] [id number] [place] [address] 7707 Sep, [facility] [address] [id number] [place] [address] 1521 Sep, [facility] [address] [id number] [place] [address] 8123 Sep, [facility] [address] [id number] [place] [address]- 7547 Sep, [facility] [address] [id number] [place] [address] 2995 Sep, [facility] [address] [id number] [place] [address] 6091 Sep, [facility] [address] [id number] [place] [address] 9272 August, [facility] [address] [id number] [place] [address] 8990 August, [facility] [place] [facility] [address] [id number] [place] [address] 9128 August, [facility] [address] [id number] [place] [address] 6116 August, [facility] [address] [id number] [place] [address] 9353 August, [facility] [address] [id number] [place] [address] 5724 August, [facility] [address] [id number] [place] [address] 2307 August, [facility] [address] [id number] [place] [address] 5180 Jul, [facility] [address] [id number] [place] [address] 8273 Jul, [facility] [address] [id number] [place] [address] 6308 Jun, [facility] [address] [id number] [place] [address] 0433 Jun, [facility] [address] [id number] [place] [address] 3782 May, [facility] [address] [id number] [place] [address] 0695 May, [facility] [address] [id number] [place] [address] 1030 Apr, [facility] [address] [id number] [place] [address] 8421 Mar, [facility] [address] [id number] [place] [address]- 8388 Mar, [facility] [place] [facility] [address] [id number], [place] [address] 5[address] Mar, [facility] [place] [facility] [address] [id number] [place] [address] 1222 Mar, [facility] [place] [facility] [address] [id number] [place] [address]- 1117 Mar, [facility] [place] [facility] [address] [id number] [place] [address] 0948 Mar, [facility] [address] [id number] [place] [address]- 0445 Feb, [facility] [place] [facility] [address] [id number] [place] [address]- 1051 Feb, [facility] [place] [facility] [address] [id number] [place] [address]- 4632 Feb, [facility] [place] [facility] [address] [id number] [place] [address]- 0776 Feb, [facility] [place] [facility] [address] [id number] [place] [address]- 6790 Feb, [facility] [place] [facility] [address] [id number] [place] [address]- 9115 Feb, [facility] [place] [facility] [address] [id number] [place] [address]- 0676 Feb, [facility] [place] [facility] [address] [id number] [place] [address]- 8529 Feb, [facility] [place] [facility] [address] [id number] [place] [address]- 1772 Jan, [facility] [place] [facility] [address] [id number] [place] [address]- 8955 Jan, [facility] [place] [facility] [address] [facility] [id number] [place] [address]- 8744 28 Dec, 2011 [facility] [place] [facility] [address] [id number] [place] [address]- 9866 19 Dec, 2011 [facility] [place] [facility] [address] [id number], [place] [address] 2548 18 Dec, 2011 [facility] [place] [facility] [address] [id number] [place] [address]- 5131 18 Dec, 2011 [facility] [place] [facility] [address] [id number] [place] [address]- 7256 04 Dec, 2011 [facility] [place] [facility] [address] [id number], [place] [address]- 6208 Nov, [facility] [place] [facility] [address] [id number] [place] [address]- 3276 Oct, [facility] [place] [facility] [address] [id number] [place] [address]- 5877 Oct, [facility] [place] [facility] [address] [id number] [place] [address]- 9955 Sep, [facility] [place] [facility] [address] [id number] [place] [address]- 0383 Sep, [facility] [place] [facility] [address] [id number] [place] [address]- 1380 Sep, [facility] [place] [facility] [address] [id number] [place] [address]- 5386 Sep, [facility] [place] [facility] [address] [id number] [place] [address]- 8781 Sep, [facility] [place] [facility] [address] [id number] [place] [address]- 2394 Sep, [facility] [place] [facility] [address] [id number] [place] [address]- 8533 Sep, [facility] [place] [facility] [address] [id number] [place] [address]- 7417 Sep, [facility] [place] [facility] [address] [id number] [place] [address]- 5026 August, [facility] [place] [facility] [address] [id number] [place] [address]- 6532 August, [facility] [place] [facility] [address] [id number] [place] [address]- 9566 August, [facility] [place] [facility] [address] [id number] [place] [address]- 1291 Jul, [facility] [place] [facility] [address] [id number] [place] [address]- 8947 Jul, [facility] [place] [facility] [address] [id number] [place] [address]- 9996 Jun, [facility] [address] [id number] [place] [address]- 6990 Jun, [facility] [place] [facility] [address] [id number] [place] [address]- 3922 Jun, [facility] [place] [facility] [address] [id number] [place] [address]- 4517 Jun, [facility] [place] [facility] [address] [id number] [place] [address]- 2346 May, [facility] [place] [facility] [address] [id number] [place] [address]- 2841 May, [facility] [place] [facility] [address] [id number] [place] [address]- 0661 Apr, [facility] [address] [id number] [place] [address]- 6467 Apr, [facility] [place] [facility] [address] [id number] [place] [address]- 2106 Apr, [facility] [address] [id number] [place] [address]- 9855 Mar, [facility] [place] [facility] [address] [id number] [place] [address]- 6041 Mar, [facility] [place] [facility] [address] [id number] [place] [address]- 5058 Mar, [facility] [place] [facility] [address] [id number] [place] [address]- 8193 Feb, [facility] [place] [facility] [address] [id number] [place] [address]- 0351 Feb, [facility] [place] [facility] [address] [id number] [place] [address]- 7717 Feb, [facility] [place] [facility] [address] [id number] [place] [address]- 9866 Feb, [facility] [place] [facility] [address] [id number] [place] [address]- 0645 25 Jan, 2011 [facility] [address] [id number] [place] [address]- 9876 14 Jan, 2011 [facility] [place] [facility] [address] [id number] [place] [address]- 9592 12 Jan, 2011 [facility] [address] [id number] [place] [address]- 2390 16 Dec, 2010 [facility] [address] [id number] [place] [address]- 4860 13 Oct, 2010 [facility] [address] [id number] [place] [address]- 7144 24 Mar, 2010 [facility] [address] [id number] [place] [address]- 9837 Feb, [facility] [address] [id number] [place] [address]- 4559 Feb, [facility] [address] [id number] [place] [address]- 9621 16 May, 2009 [facility] [address] [id number] [place] [address]- 1062 Apr, [facility] [address] [facility] [id number] [place] [address]- 8564 29 Mar, 2009 [facility] [address] [id number] [place] [address]- 9781 30 Jan, 2009 [facility] [address] [id number] [place] [address]- 5938 15 Oct, 2008 [facility] [place] [facility] [address] [id number] [place] [address]- 1173 16 Jul, 2008 [facility] [place] [facility] [address] [id number] [place] [address]- 2546 04 Mar, 2008 [facility] [place] [facility] [address] [id number] [place] [address]- 1188 Feb, [facility] [address] [facility] [id number] [place] [address] 2678 Jan, IMMUNIZATIONS No Known Immunizations SOCIAL HISTORY [...]
--- OUTSIDE RECORDS SUMMARY | 2018-07-05 12:39 | XMS REPORT ---
Author Author KATHYA FISCHER Organization [facility] Address [address] [place] [address] Care Team Providers Care Day Care Worker Name Role Phone KATHYA FISCHER Unavailable PROBLEMS Type Condition ICD9-CM Code [id number] Code Onset Dates Condition Status SNOMED Code Problem Arthritis M19.90 Active 3706506 Problem 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 Active 29452016 Problem Polyneuropathy G62.9 Active 07050765 Problem Other male erectile dysfunction N52.8 Active 709271315 Problem Constipation K59.00 Active 37279541 Problem Type 2 diabetes mellitus with 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 E11.65 Active 579873078 Problem Controlled type 2 diabetes mellitus without complication, without long -term current use of insulin E11.9 Active 297490071 Problem long-term current use of insulin Z79.4 Active 455071157 Problem Neuropathy G62.9 Active 874025200 Problem Obstructive sleep apnea G47.33 Active 13999793 Problem Hypertension, benign I10 Active 18490583 Problem Uncontrolled type 2 diabetes mellitus without complication, without long-term current use of insulin E11.65 Active 763719382 Problem Stress incontinence of urine N39.3 Active 05921589 Problem Fibromyalgia M79.7 Active 923723786 ALLERGIES No Information ENCOUNTERS Encounter Location Date Diagnosis [facility] [id number] [place] [address] 96909- 9257 Dec, [facility] [id number] [place] [address] 90688- 4328 Nov, Therapeutic drug monitoring Z51.81 ; Fibromyalgia M79.7 and Controlled type 2 diabetes mellitus without complication, without long-term current use of insulin E11.9 [facility] [address] [address] 60[address] Nov, [facility] [id number] [place] [address] 12976- 8788 Nov, [facility] [address] [address] 4822 Nov, [facility] [id number] [place] [address] 71297- 5146 Nov, Type 2 diabetes mellitus with 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 E11.65 [facility] [id number] [place] [address] 40364- 5881 Nov, [facility] [id number] [place] [address] 95866- 7615 Nov, [facility] [id number] [place] [address] 78267- 5241 Nov, Constipation K59.00 [facility] [id number] [place] [address] 28442- 8668 Oct, Diabetes type 2, controlled E11.9 [facility] [id number] [place] [address] 97753- 9425 Oct, Type 2 diabetes mellitus with 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 E11.65 ; long-term current use of insulin Z79.4 and Neuropathy G62.9 [facility] [id number] [place] [address] 77370- 1249 Oct, [facility] [address] [address]- 3242 Oct, [facility] [address] [address]- 4838 Oct, [facility] [address] [address]- 0962 Oct, [facility] [id number] [place] [address] 58646- 7517 Oct, [facility] [address] [address]- 4248 Oct, [facility] [address] [address]- 2283 Oct, [facility] [address] [address] 2546 Sep, [facility] [id number] [place] [address] 68533 2546 Sep, Uncontrolled type 2 diabetes mellitus without complication, without long-term current use of insulin E11.65 [facility] [address] [place] [address] 05274 2546 Sep, Hypertension, benign I10 ; Fibromyalgia M79.7 ; Uncontrolled type 2 diabetes mellitus without complication, without long-term current use of insulin E11.65 and Controlled type 2 diabetes mellitus without complication, without long-term current use of insulin E11.9 [facility] [id number] [place] [address] 48177 2546 Sep, [facility] [id number] [place] [address] 14043 2546 Sep, Uncontrolled type 2 diabetes mellitus without complication, without long-term current use of insulin E11.65 [facility] [address] [address] 2546 Sep, [facility] [id number] [address] 2546 Sep, [facility] [address] [address] 2546 Sep, Uncontrolled type 2 diabetes mellitus without complication, without long-term current use of insulin E11.65 and Fibromyalgia M79.7 [facility] [address] [address] 2546 August, [facility] [address] [address] 2546 August, [facility] [id number] [address] 2546 August, [facility] [address] [address] 2546 August, Fibromyalgia M79.7 [facility] [id number] [place] [address] 68348- 6327 Jul, Hypertension, benign I10 [facility] [address] 22410- 6579 Jul, Fibromyalgia M79.7 [facility] [address] 97190- 7233 Jul, [facility] [address] 61567- 6101 Jun, [facility] [address] 09363- 4712 Jun, Hypertension, benign I10 ; Arthritis M19.90 ; 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 and Uncontrolled type 2 diabetes mellitus without complication, without long-term current use of insulin E11.65 [facility] [address] 65006 -5889 Jun, Acute nasopharyngitis J00 and BMI 50.0-59.9, adult Z68.43 [facility] [address] 34234- 2981 Jun, Fibromyalgia M79.7 [facility] [id number] [place] [address] 59096- 8916 May, [facility] [address] 12859- 9493 May, Fibromyalgia M79.7 [facility] [address] 44174- 8560 Apr, Fibromyalgia M79.7 [facility] [address] 13879- 9671 Apr, [facility] [address] 31417- 3650 Apr, [facility] [address] 57264- 1829 Apr, Arthritis M19.90 [facility] [id number] [place] [address] 22122- 0896 Apr, Arthritis M19.90 [facility] [id number] [place] [address] 95015 2544 10 Apr, 2017 Arthritis M19.90 and Controlled type 2 diabetes mellitus without complication, without long-term current use of insulin E11.9 [facility] [address] 69152- 3223 Apr, [facility] [id number] [place] [address] 11578- 6567 Apr, Fibromyalgia M79.7 [facility] [id number] [place] [address] 28521- 4425 Mar, [facility] [address] 87901- 4343 Mar, [facility] [id number] [place] [address] 82536- 5364 Mar, Fibromyalgia M79.7 [facility] [id number] [place] [address] 09704- 3312 Feb, [facility] [id number] [place] [address] 20383- 3048 Feb, [facility] [id number] [place] [address] 34287- 5486 Feb, [facility] [id number] [place] [address] 90357 2541 Feb, Fibromyalgia M79.7 [facility] [id number] [place] [address] 69639- 8563 Feb, Diabetes type 2, uncontrolled E11.65 and Encounter for immunization Z23 [facility] [id number] [place] [address] 98960- 8552 Jan, [facility] [address] [address]- 6879 Jan, Fibromyalgia M79.7 [facility] [id number] [place] [address] 43395- 2466 Dec, [facility] [id number] [address]- 8404 Dec, Fibromyalgia M79.7 [facility] [id number] [place] [address] 48798- 2216 Nov, [facility] [id number] [place] [address] 05553- 0948 Nov, [facility] [id number] [place] [address] 05717- 6624 Nov, 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 and Polyneuropathy G62.9 [facility] [id number] [place] [address] 92475- 8645 Nov, [facility] [address] [place] [address] 14117- 5999 Nov, [facility] [id number] [place] [address] 54877- 7922 Oct, Diabetes type 2, uncontrolled E11.65 [facility] [id number] [address]- 9655 Oct, Diabetes type 2, uncontrolled E11.65 ; Polyneuropathy G62.9 and Pain in right wrist M25.531 [facility] [address], [place] [address]- 2124 Oct, [facility] [id number] [place] [address] 72867- 4090 Oct, Pain in left shoulder M25.512 [facility] [address] [address]- 3076 Sep, [facility] [id number] [place] [address] 95641- 1306 Sep, Pain in left shoulder M25.512 [facility] [address] [address]- 1742 Sep, [facility] [id number] [place] [address] 09703- 2836 August, Pain in left shoulder M25.512 [facility] [id number] [place] [address] 31854- 9099 Jul, [facility] [id number] [place] [address] 70097- 3673 Jul, [facility] [id number] [place] [address] 84168- 0529 Jul, Pain in left shoulder M25.512 [facility] [id number] [place] [address] 54516- 5493 Jun, [facility] [id number] [place] [address] 12515- 6910 Jun, [facility] [id number] [place] [address] 34195- 2115 Jun, Diabetes type 2, uncontrolled E11.65 ; Fibromyalgia M79.7 and Arthritis M19.90 [facility] [address] [address]- 0369 Jun, Pain in left shoulder M25.512 [facility] [id number] [address]- 7995 May, [facility] [address], [place] [address]- 4722 May, Diabetes type 2, controlled E11.9 [facility] [id number] [place] [address] 04632- 8756 17 May, 2016 [facility] [address], [place] [address]- 6590 May, Uncontrolled type 2 diabetes mellitus without complication, without long-term current use of insulin E11.65 [facility] [address], [place] [address]- 8772 15 May, 2016 Pain in left shoulder M25.512 [facility] [address] [address]- 5131 03 May, 2016 Diabetes type 2, controlled E11.9 and Uncontrolled type 2 diabetes mellitus without complication, without long-term current use of insulin E11.65 [facility] [address], [place] [address]- 4241 Apr, [facility] [address], [place] [address]- 8406 Apr, [facility] [address] [place] [address] 47925- 1814 Mar, [facility] [id number] [place] [address] 23298- 4721 Mar, [facility] [address], [place] [address]- 1414 Mar, [facility] [address], [place] [address]- 4742 Feb, [facility] [address] [address] Feb, Dental examination Z01.20 [facility] [address], [place] [address]- 1275 Jan, [facility] [address], [place] [address]- 1437 Dec, [facility] [address], [place] [address]- 5951 Dec, [facility] [address], [place] [address]- 7960 Dec, [facility] [address], [place] [address]- 8998 Dec, Diabetes type 2, controlled E11.9 [facility] [address] [id number] [place] [address]- 1580 Nov, [facility] [address] [id number] [place] [address]- 4306 Nov, [facility] [address] [id number] [place] [address]- 8565 Nov, [facility] [address] [id number] [place] [address]- 0377 Nov, [facility] [address] [id number] [place] [address]- 9568 Oct, [facility] [address] [id number] [place] [address]- 7632 Oct, [facility] [address] [facility] [id number] [place] [address]- 9458 Oct, [facility] [address] [facility] [id number] [place] [address]- 9661 Sep, [facility] [address] [facility] [id number] [place] [address]- 3334 Sep, Diabetes type 2, controlled E11.9 [facility] [address] [facility] [id number] [place] [address]- 5607 Sep, Diabetes type 2, controlled E11.9 [facility] [address] [facility] [id number] [place] [address]- 5759 August, [facility] [address] [id number] [place] [address]- 0181 August, [facility] [address] [facility] [id number] [place] [address]- 5928 August, Type 2 diabetes mellitus without complication E11.9 and Pain in left shoulder M25.512 [facility] [address] [facility] [id number] [place] [address]- 7825 Jul, [facility] [id number] [place] [address] 78388- 1490 Jul, Diabetes type 2, controlled E11.9 and Hypertension, benign I10 [facility] [id number] [place] [address] 82003- 6642 Jun, [facility] [id number] [place] [address] 25765- 6463 Jun, [facility] [address] 74023- 7348 Jun, Diabetes 250.00 [facility] [id number] [place] [address] 93523- 7518 Jun, [facility] [id number] [place] [address] 78738- 7583 May, Diabetes type 2, uncontrolled E11.65 [facility] [id number] [place] [address] 54336- 6114 May, [facility] [id number] [place] [address] 85194- 3727 Apr, Type 2 diabetes mellitus without complication E11.9 [facility] [id number] [place] [address] 15192- 6333 Apr, Encounter for immunization Z23 [facility] [id number] [place] [address] 54510- 3832 Apr, [facility] [id number] [place] [address] 16136- 9098 Mar, [facility] [id number] [place] [address] 98342- 3127 Mar, [facility] [id number] [place] [address] 91189- 4553 Mar, [facility] [id number] [place] [address] 15233- 5664 Feb, [facility] [id number] [place] [address] 57842- 6964 Jan, [facility] [address] [address]- 0154 Jan, [facility] [address] 4086 Jan, [facility] [address] 7342 Dec, Diabetes 250.00 and COPD (chronic obstructive pulmonary disease) 496 [facility] [address] [address]- 9537 Dec, [facility] [id number] [place] [address] 67516- 9005 Dec, [facility] [id number], [place] [address]- 0311 Nov, [facility] [id number] [place] [address] 97155- 4184 Oct, Diabetes 250.00 [facility] [address], [place] [address]- 7441 Sep, [facility] [id number] [address]- 4500 Sep, [facility] [address], [place] [address]- 0845 Sep, [facility] [address], [place] [address]- 9434 Sep, Diabetes 250.00 [facility] [address], [place] [address]- 3116 Sep, [facility] [id number] [place] [address] 33838928- 9318 Sep, [facility] [address] 4064 August, Hypertension, essential, benign 401.1 ; Coronary atherosclerosis of [place] coronary artery 414.01 and Diabetic neuropathy associated with type 2 diabetes mellitus 250.60 [facility] [place] [facility] [address] [facility] [id number] [place] [address]- 9406 29 Jul, 2014 [facility] [place] [facility] [address] [facility] [id number] [place] [address]- 3636 14 Jul, 2014 [facility] [place] [facility] [id number] [place] [address]- 4459 Jul, [facility] [place] [facility] [address] [facility] [id number] [address]- 7137 Jun, [facility] [place] [facility] [address] [facility] [id number] [place] [address]- 1219 Jun, [facility] [place] [facility] [address] [facility] [id number] [place] [address]- 1817 Jun, [facility] [place] [facility] [id number] [place] [address]- 2841 Jun, [facility] [place] [facility] [address] [facility] [id number], [place] [address]- 5005 Jun, [facility] [place] [facility] [id number] [place] [address]- 0855 May, [facility] [place] [facility] [id number] [place] [address]- 0006 May, [facility] [place] [facility] [address] [address]- 6410 May, [facility] [place] [facility] [address], [place] [address]- 0640 May, [facility] [place] [facility] [id number] [place] [address]- 7399 May, [facility] [place] [facility] [address] [facility] [id number] 2447 May, [facility] [place] [facility] [id number] 7553 May, [facility] [place] [facility] [address] [id number] [place] [address]- 1845 Apr, [facility] [place] [facility] [address] [id number] [place] [address]- 8398 Apr, [facility] [place] [facility] [address] [id number] [place] [address]- 1967 Apr, [facility] [place] [facility] [address] [id number] [place] [address]- 6567 Apr, [facility] [place] [facility] [address] [id number] [place] [address]- 2461 Mar, [facility] [place] [facility] [address] [id number] [place] 5200 Mar, [facility] [place] [facility] [address] [id number] [place] 0919 Mar, [facility] [place] [facility] [address] [id number] [place] [address]- 5355 Mar, [facility] [place] [facility] [address] [id number] [place] [address]- 4441 Feb, [facility] [place] [facility] [address] [id number] [place] [address]- 0054 Feb, [facility] [place] [facility] [address] [facility] [id number] [place] [address]- 4851 Feb, [facility] [place] [facility] [address] [id number] [place] [address]- 7632 Feb, [facility] [place] [facility] [address] [id number] [place] [address]- 9294 Feb, [facility] [place] [facility] [address] [id number] [place] [address]- 6150 Feb, [facility] [place] [facility] [address] [id number] [place] [address]- 6556 Feb, [facility] [place] [facility] [address] [id number] [place] [address]- 0041 Jan, [facility] [place] [facility] [address] [id number] [place] [address]- 0798 Jan, [facility] [place] [facility] [address] [id number] [place] [address]- 4823 Dec, [facility] [place] [facility] [address] [id number] [place] [address]- 3967 Dec, [facility] [place] [facility] [address] [id number] [place] [address]- 3215 Dec, [facility] [place] [facility] [address] [id number] [place] [address]- 7465 Dec, [facility] [place] [facility] [address] [id number] [place] [address]- 0261 Dec, [facility] [place] [facility] [address] [id number] [place] [address]- 7588 Dec, [facility] [place] [facility] [address] [id number] [place] [address]- 3190 Dec, [facility] [place] [facility] [address] [id number] [place] [address]- 3195 Dec, [facility] [place] [facility] [address] [id number] [place] [address]- 5841 Nov, [facility] [place] [facility] [address] [id number] [place] [address]- 5184 Nov, [facility] [place] [facility] [address] [id number], [place] [address]- 8811 Nov, [facility] [place] [facility] [address] [id number] [place] [address]- 2905 Nov, [facility] [place] [facility] [address] [id number] [place] [address]- 7322 Oct, [facility] [place] [facility] [address] [id number] [place] [address]- 4154 Oct, [facility] [place] [facility] [address] [id number] [place] [address] Oct, [facility] [place] [facility] [address] [id number] [place] [address] Oct, [facility] [place] [facility] [address] [id number] [place] [address] Oct, [facility] [place] [facility] [address] [id number] [place] [address] Oct, [facility] [place] [facility] [address] [id number] [place] [address] Oct, [facility] [place] [facility] [address] [id number] [place] [address] Oct, [facility] [place] [facility] [address] [id number] [place] [address] Sep, [facility] [place] [facility] [address] [id number] [place] [address] Sep, [facility] [place] [facility] [address] [id number] [place] [address] August, [facility] [place] [facility] [address] [id number] [place] [address] August, [facility] [place] [facility] [address] [id number] [place] [address] Jul, [facility] [place] [facility] [address] [id number] [place] [address] Jul, [facility] [place] [facility] [address] [id number] [place] [address] Jul, [facility] [place] [facility] [address] [id number] [place] [address] Jul, [facility] [place] [facility] [address] [id number] [place] [address] Jul, [facility] [place] [facility] [address] [id number] [place] [address] Jul, [facility] [place] [facility] [address] [id number] [place] [address] Jul, [facility] [place] [facility] [address] [id number] [place] [address] Jul, [facility] [place] [facility] [address] [id number] [place] [address] Jun, [facility] [place] [facility] [address] [id number] [place] [address] Jun, [facility] [place] [facility] [address] [id number] [place] [address] Jun, [facility] [place] [facility] [address] [id number] [place] [address] Jun, [facility] [place] [facility] [address] [id number] [place] [address] May, [facility] [place] [facility] [address] [id number] [place] [address] May, [facility] [place] [facility] [address] [id number] [place] [address] Apr, [facility] [place] [facility] [address] [id number] [place] [address] Apr, [facility] [place] [facility] [address] [id number] [place] [address] Mar, [facility] [place] [facility] [address] [id number] [place] [address] Mar, [facility] [place] [facility] [address] [id number] [place] [address] Mar, [facility] [place] [facility] [address] [id number] [place] [address] Mar, [facility] [place] [facility] [address] [id number] [place] [address] Mar, [facility] [place] [facility] [address] [id number], [place] [address] Mar, [facility] [place] [facility] [address] [id number] [place] [address] Feb, [facility] [place] [facility] [address] [id number], [place] [address] Feb, [facility] [place] [facility] [address] [id number] [place] [address] Feb, [facility] [place] [facility] [address] [id number], [place] [address] Feb, [facility] [place] [facility] [address] [id number] [place] [address] 65[address] Feb, [facility] [place] [facility] [address] [id number] [place] [address]368 Feb, [facility] [place] [facility] [address] [id number], [place] [address] Feb, [facility] [place] [facility] [address] [id number] [place] [address] 6947 Feb, [facility] [place] [facility] [address] [id number], [place] [address] 15 Jan, 2013 [facility] [place] [facility] [address] [id number], [place] [address] 15 Jan, 2013 [facility] [place] [facility] [address] [id number], [place] [address] 14 Jan, 2013 [facility] [place] [facility] [address] [id number], [place] [address] 14 Jan, 2013 [facility] [place] [facility] [address] [id number], [place] [address] 18 Dec, 2012 [facility] [place] [facility] [address] [id number], [place] [address] 13 Dec, 2012 [facility] [place] [facility] [address] [id number], [place] [address] 2012 [facility] [place] [facility] [address] [id number] [place] [address]26 Nov, [facility] [address] [id number] [place] [address] 4266 Nov, [facility] [address] [id number] [place] [address] 2546 Oct, [facility] [address] [id number] [place] [address] 7398 Oct, [facility] [address] [id number] [place] [address] 7594 Oct, [facility] [address] [id number] [place] [address]3 Sep, [facility] [address] [id number] [place] [address] 1347 Sep, [facility] [address] [id number] [place] [address]- 7353 Sep, [facility] [address] [id number] [place] [address] 6484 Sep, [facility] [address] [id number] [place] [address]- 2468 Sep, [facility] [address] [id number] [place] [address] 4[address] Sep, [facility] [address] [id number] [place] [address] 2286 August, [facility] [address] [id number] [place] [address] 2008 August, [facility] [place] [facility] [address] [id number] [place] [address] 8[address] August, [facility] [address] [id number] [place] [address] 8286 August, [facility] [address] [id number] [place] [address] 9391 August, [facility] [address] [id number] [place] [address] 3523 August, [facility] [address] [id number] [place] [address] 67[address] August, [facility] [address] [id number] [place] [address] 9148 Jul, [facility] [address] [id number] [place] [address] 0647 Jul, [facility] [address] [id number] [place] [address] 6692 Jun, [facility] [address] [id number] [place] [address]- 7898 Jun, [facility] [address] [id number] [place] [address] 7845 May, [facility] [address] [id number] [place] [address]- 6998 May, [facility] [address] [id number] [place] [address]- 7372 Apr, [facility] [address] [id number] [place] [address] 6006 Mar, [facility] [address] [id number] [place] [address] 8697 Mar, [facility] [place] [facility] [address] [id number], [place] [address] Mar, [facility] [place] [facility] [address] [id number] [place] [address]- 0955 Mar, [facility] [place] [facility] [address] [id number] [place] [address]- 1858 Mar, [facility] [place] [facility] [address] [id number] [place] [address]- 9399 Mar, [facility] [address] [id number] [place] [address]- 8099 Feb, [facility] [place] [facility] [address] [id number] [place] [address]- 5967 Feb, [facility] [place] [facility] [address] [id number] [place] [address]- 8730 Feb, [facility] [place] [facility] [address] [id number] [place] [address]- 6969 Feb, [facility] [place] [facility] [address] [id number] [place] [address]- 8262 Feb, [facility] [place] [facility] [address] [id number] [place] [address]- 3922 Feb, [facility] [place] [facility] [address] [id number] [place] [address]- 9734 Feb, [facility] [place] [facility] [address] [id number] [place] [address]- 4297 Feb, [facility] [place] [facility] [address] [id number] [place] [address]- 4563 Jan, [facility] [place] [facility] [address] [id number] [place] [address]- 7984 Jan, [facility] [place] [facility] [address] [facility] [id number] [place] [address]- 1286 28 Dec, 2011 [facility] [place] [facility] [address] [id number] [place] [address]- 4276 19 Dec, 2011 [facility] [place] [facility] [address] [id number], [place] [address] 2548 18 Dec, 2011 [facility] [place] [facility] [address] [id number] [place] [address]- 4280 18 Dec, 2011 [facility] [place] [facility] [address] [id number] [place] [address]- 4606 04 Dec, 2011 [facility] [place] [facility] [address] [id number], [place] [address] 0246 Nov, [facility] [place] [facility] [address] [id number] [place] [address]- 2972 Oct, [facility] [place] [facility] [address] [id number] [place] [address]- 3321 Oct, [facility] [place] [facility] [address] [id number] [place] [address]- 8919 Sep, [facility] [place] [facility] [address] [id number] [place] [address]- 5200 Sep, [facility] [place] [facility] [address] [id number] [place] [address]- 8954 Sep, [facility] [place] [facility] [address] [id number] [place] [address]- 3499 Sep, [facility] [place] [facility] [address] [id number] [place] [address]- 3850 Sep, [facility] [place] [facility] [address] [id number] [place] [address]- 9382 Sep, [facility] [place] [facility] [address] [id number] [place] [address]- 7349 Sep, [facility] [place] [facility] [address] [id number] [place] [address]- 1628 Sep, [facility] [place] [facility] [address] [id number] [place] [address]- 6137 August, [facility] [place] [facility] [address] [id number] [place] [address]- 2046 August, [facility] [place] [facility] [address] [id number] [place] [address]- 9484 August, [facility] [place] [facility] [address] [id number] [place] [address]- 4740 Jul, [facility] [place] [facility] [address] [id number] [place] [address]- 9205 Jul, [facility] [place] [facility] [address] [id number] [place] [address]- 9396 Jun, [facility] [address] [id number] [place] [address]- 6338 Jun, [facility] [place] [facility] [address] [id number] [place] [address]- 8213 Jun, [facility] [place] [facility] [address] [id number] [place] [address]- 3569 Jun, [facility] [place] [facility] [address] [id number] [place] [address]- 0835 May, [facility] [place] [facility] [address] [id number] [place] [address]- 7767 May, [facility] [place] [facility] [address] [id number] [place] [address]- 0787 Apr, [facility] [address] [id number] [place] [address]- 2398 Apr, [facility] [place] [facility] [address] [id number] [place] [address]- 2769 Apr, [facility] [address] [id number] [place] [address]- 3439 Mar, [facility] [place] [facility] [address] [id number] [place] [address]- 1222 Mar, [facility] [place] [facility] [address] [id number] [place] [address]- 1607 Mar, [facility] [place] [facility] [address] [id number] [place] [address]- 5281 Feb, [facility] [place] [facility] [address] [id number] [place] [address]- 5201 Feb, [facility] [place] [facility] [address] [id number] [place] [address]- 9911 Feb, [facility] [place] [facility] [address] [id number] [place] [address]- 8384 Feb, [facility] [place] [facility] [address] [id number] [place] [address]- 5159 25 Jan, 2011 [facility] [address] [id number] [place] [address]- 0622 14 Jan, 2011 [facility] [place] [facility] [address] [id number] [place] [address]- 5662 12 Jan, 2011 [facility] [address] [id number] [place] [address]- 7921 16 Dec, 2010 [facility] [address] [id number] [place] [address]- 0339 13 Oct, 2010 [facility] [address] [id number] [place] [address]- 4180 24 Mar, 2010 [facility] [address] [id number] [place] [address]- 2364 Feb, [facility] [address] [id number] [place] [address]- 1154 Feb, [facility] [address] [id number] [place] [address]- 4367 16 May, 2009 [facility] [address] [id number] [place] [address]- 4546 Apr, [facility] [address] [facility] [id number] [place] [address]- 9136 29 Mar, 2009 [facility] [address] [id number] [place] [address]- 9391 30 Jan, 2009 [facility] [address] [id number] [place] [address]- 1682 15 Oct, 2008 [facility] [place] [facility] [address] [id number] [place] [address]- 6656 16 Jul, 2008 [facility] [place] [facility] [address] [id number] [place] [address]- 2546 04 Mar, 2008 [facility] [place] [facility] [address] [id number] [place] [address]- 2919 Feb, [facility] [address] [facility] [id number] [place] [address]- 7565 Jan, IMMUNIZATIONS No Known Immunizations SOCIAL HISTORY Never Assessed REASON FOR VISIT Bydureon note/lab order PLAN OF CARE VITAL SIGNS MEDICATIONS Unknown [...]
[2018-07-05 12:40] LABS: BASOPHILS % (AUTO) 0 % (0-10); EOSINOPHILS # (AUTO) 0.1 10^3/uL (0.0-0.3); EOSINOPHILS % (AUTO) 1 % (0-10); HEMATOCRIT 44 % (40-54); LYMPHOCYTES # (AUTO) 0.8 X 10^3 (1.0-4.0); LYMPHOCYTES % (AUTO) 8 % (12-44); MEAN CORPUSCULAR HEMOGLOBIN 27 PG (25-34); MEAN CORPUSCULAR HGB CONC 32 G/DL (32-36); MEAN CORPUSCULAR VOLUME 85 FL (80-99); MEAN PLATELET VOLUME 10.4 FL (7.4-10.4); MONOCYTES # (AUTO) 0.6 X 10^3 (0.0-1.0); MONOCYTES % (AUTO) 6 % (0-12); NEUTROPHILS # (AUTO) 8.6 X 10^3 (1.8-7.8); NEUTROPHILS % (AUTO) 85 % (42-75); PLATELET COUNT 195 10^3/uL (130-400); RED CELL DISTRIBUTION WIDTH 17.1 % (10.0-14.5); WHITE BLOOD COUNT 10.1 10^3/uL (4.3-11.0)
--- OUTSIDE RECORDS SUMMARY | 2018-07-05 12:40 | XMS REPORT ---
Author Author KATHYA FISCHER Organization [facility] Address [address] [place] [address] Care Team Providers Care Business Manager Name Role Phone KATHYA FISCHER Unavailable PROBLEMS Type Condition ICD9-CM Code YVH01-DT Code Onset Dates Condition Status SNOMED Code Problem Arthritis M19.90 Active 7556866 Problem 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 Active 33325640 Problem Polyneuropathy G62.9 Active 52892904 Problem Other male erectile dysfunction N52.8 Active 876988017 Problem Constipation K59.00 Active 18780340 Problem Type 2 diabetes mellitus with 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 E11.65 Active 039940899 Problem Controlled type 2 diabetes mellitus without complication, without long -term current use of insulin E11.9 Active 509024620 Problem halfway current use of insulin Z79.4 Active 778466515 Problem Neuropathy G62.9 Active 175779994 Problem Obstructive sleep apnea G47.33 Active 42398683 Problem Hypertension, benign I10 Active 85860176 Problem Uncontrolled type 2 diabetes mellitus without complication, without long-term current use of insulin E11.65 Active 369711414 Problem Stress incontinence of urine N39.3 Active 05689912 Problem Fibromyalgia M79.7 Active [id number] ALLERGIES No Information ENCOUNTERS Encounter Location Date Diagnosis [facility] [id number] [place] [address] 06595- 5391 Dec, [facility] [id number] [place] [address] 71600- 2641 Nov, Therapeutic drug monitoring Z51.81 ; Fibromyalgia M79.7 and Controlled type 2 diabetes mellitus without complication, without long-term current use of insulin E11.9 [facility] [address], [place] [address] 1757 Nov, [facility] [id number] [place] [address] 91052- 4249 Nov, [facility] [address], [place] [address] 5231 Nov, [facility] [id number] [place] [address] 38527- 1236 Nov, Type 2 diabetes mellitus with 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 E11.65 [facility] [id number] [place] [address] 56354- 0611 Nov, [facility] [id number] [place] [address] 29725- 9477 Nov, [facility] [id number] [place] [address] 59709- 7332 Nov, Constipation K59.00 [facility] [id number] [place] [address] 81331- 3517 Oct, Diabetes type 2, controlled E11.9 [facility] [id number] [place] [address] 71535- 9729 Oct, Type 2 diabetes mellitus with 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 E11.65 ; halfway current use of insulin Z79.4 and Neuropathy G62.9 [facility] [id number] [place] [address] 60177- 7693 Oct, [facility] [address], [place] [address]- 0992 Oct, [facility] [address], [place] [address]- 8706 Oct, [facility] [address], [place] [address]- 0791 Oct, [facility] [id number] [place] [address] 75980- 8865 Oct, [facility] [address], [place] [address]- 8060 Oct, [facility] [address], [place] [address] 2003 Oct, [facility] [address], [place] [address] 2546 Sep, [facility] [id number] [place] [address] 40154 2546 Sep, Uncontrolled type 2 diabetes mellitus without complication, without long-term current use of insulin E11.65 [facility] [id number] [place] [address] 91362 2546 Sep, Hypertension, benign I10 ; Fibromyalgia M79.7 ; Controlled type 2 diabetes mellitus without complication, without long-term current use of insulin E11.9 and Uncontrolled type 2 diabetes mellitus without complication, without long-term current use of insulin E11.65 [facility] [id number] [place] [address] 94066 2546 Sep, [facility] [id number] [place] [address] 32025 2546 Sep, Uncontrolled type 2 diabetes mellitus without complication, without long-term current use of insulin E11.65 [facility] [address], [place] [address] 2546 Sep, [facility] [id number] [place] [address] 52954 2546 Sep, [facility] [address], [place] [address] 2546 Sep, Uncontrolled type 2 diabetes mellitus without complication, without long-term current use of insulin E11.65 and Fibromyalgia M79.7 [facility] [address], [place] [address] 2546 August, [facility] [address], [place] [address] 2546 August, [facility] [id number] [address] 2546 August, [facility] [address], [place] [address] 2546 August, Fibromyalgia M79.7 [facility] [id number] [place] [address] 42997- 3756 Jul, Hypertension, benign I10 [facility] [address] 77454- 6404 Jul, Fibromyalgia M79.7 [facility] [address] 97025- 8191 Jul, [facility] [address] 55474- 0320 Jun, [facility] [address] 85156- 1706 Jun, Hypertension, benign I10 ; Arthritis M19.90 ; 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 and Uncontrolled type 2 diabetes mellitus without complication, without long-term current use of insulin E11.65 [facility] [address] 01041 -0094 Jun, Acute nasopharyngitis J00 and BMI 50.0-59.9, adult Z68.43 [facility] [address] 25319- 6962 Jun, Fibromyalgia M79.7 [facility] [id number] [place] [address] 90964- 4227 May, [facility] [address] 41182- 6436 May, Fibromyalgia M79.7 [facility] [address] 60820- 6982 Apr, Fibromyalgia M79.7 [facility] [address] 85254- 2038 Apr, [facility] [address] 57360- 8153 Apr, [facility] [address] 72090- 5920 Apr, Arthritis M19.90 [facility] [id number] [place] [address] 94307- 3836 Apr, Arthritis M19.90 [facility] [id number] [place] [address] 65427 2547 10 Apr, 2017 Arthritis M19.90 and Controlled type 2 diabetes mellitus without complication, without long-term current use of insulin E11.9 [facility] [address] 17400- 4861 Apr, [facility] [id number] [place] [address] 73855- 7223 Apr, Fibromyalgia M79.7 [facility] [id number] [place] [address] 89783- 2198 Mar, [facility] [address] 54124- 0063 Mar, [facility] [id number] [place] [address] 66775- 8771 Mar, Fibromyalgia M79.7 [facility] [id number] [place] [address] 38571- 9895 Feb, [facility] [id number] [place] [address] 55300- 2948 Feb, [facility] [id number] [place] [address] 11683- 3762 Feb, [facility] [id number] [place] [address] 21132 2549 Feb, Fibromyalgia M79.7 [facility] [id number] [place] [address] 66607- 3336 Feb, Diabetes type 2, uncontrolled E11.65 and Encounter for immunization Z23 [facility] [id number] [place] [address] 59896- 3842 Jan, [facility] [address], [place] [address]- 8151 Jan, Fibromyalgia M79.7 [facility] [id number] [place] [address] 76642- 9066 Dec, [facility] [address] [address]- 1629 Dec, Fibromyalgia M79.7 [facility] [id number] [place] [address] 94210- 0743 Nov, [facility] [id number] [place] [address] 06320- 4359 Nov, [facility] [id number] [place] [address] 11985- 1095 Nov, 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 and Polyneuropathy G62.9 [facility] [id number] [place] [address] 73038- 2022 Nov, [facility] [id number] [place] [address] 67196- 5417 Nov, [facility] [id number] [place] [address] 51286- 1378 Oct, Diabetes type 2, uncontrolled E11.65 [facility] [id number] [address]- 9001 Oct, Diabetes type 2, uncontrolled E11.65 ; Polyneuropathy G62.9 and Pain in right wrist M25.531 [facility] [address], [place] [address]- 8264 Oct, [facility] [id number] [place] [address] 37210- 4889 Oct, Pain in left shoulder M25.512 [facility] [address], [place] [address]- 1555 Sep, [facility] [id number] [place] [address] 48176- 2190 Sep, Pain in left shoulder M25.512 [facility] [address], [place] [address]- 6904 Sep, [facility] [id number] [place] [address] 29817- 2006 August, Pain in left shoulder M25.512 [facility] [id number] [place] [address] 25826- 2738 Jul, [facility] [id number] [place] [address] 97697- 2971 Jul, [facility] [id number] [place] [address] 21252- 6552 Jul, Pain in left shoulder M25.512 [facility] [id number] [place] [address] 84450- 6402 Jun, [facility] [id number] [place] [address] 76771- 6746 Jun, [facility] [id number] [place] [address] 89851- 0541 Jun, Diabetes type 2, uncontrolled E11.65 ; Fibromyalgia M79.7 and Arthritis M19.90 [facility] [address], [place] [address]- 6248 Jun, Pain in left shoulder M25.512 [facility] [id number] [place] [address]- 7070 May, [facility] [address], [place] [address]- 9198 May, Diabetes type 2, controlled E11.9 [facility] [id number] [place] [address] 79194- 0156 17 May, 2016 [facility] [address], [place] [address]- 3627 May, Uncontrolled type 2 diabetes mellitus without complication, without long-term current use of insulin E11.65 [facility] [address], [place] [address]- 8289 15 May, 2016 Pain in left shoulder M25.512 [facility] [address], [place] [address]- 5391 03 May, 2016 Diabetes type 2, controlled E11.9 and Uncontrolled type 2 diabetes mellitus without complication, without long-term current use of insulin E11.65 [facility] [address], [place] [address]- 3060 Apr, [facility] [address], [place] [address]- 9812 Apr, [facility] [id number] [place] [address] 75628- 8026 Mar, [facility] [id number] [place] [address] 20058- 6556 Mar, [facility] [address], [place] [address]- 3047 Mar, [facility] [address], [place] [address]- 6422 Feb, [facility] [address] [id number] Feb, Dental examination Z01.20 [facility] [address], [place] [address]- 9212 Jan, [facility] [address], [place] [address]- 7328 Dec, [facility] [address], [place] [address]- 4980 Dec, [facility] [address], [place] [address]- 3657 Dec, [facility] [address], [place] [address]- 5976 Dec, Diabetes type 2, controlled E11.9 [facility] [address] [id number] [place] [address]- 5543 Nov, [facility] [address] [id number] [place] [address]- 4606 Nov, [facility] [address] [id number] [place] [address]- 1046 Nov, [facility] [address] [id number] [place] [address]- 9799 Nov, [facility] [address] [id number] [place] [address]- 7417 Oct, [facility] [address] [id number] [place] [address]- 5597 Oct, [facility] [address] [facility] [id number] [place] [address]- 7255 Oct, [facility] [address] [facility] [id number] [place] [address]- 2057 Sep, [facility] [address] [facility] [id number] [place] [address]- 3323 Sep, Diabetes type 2, controlled E11.9 [facility] [address] [facility] [id number] [place] [address]- 4393 Sep, Diabetes type 2, controlled E11.9 [facility] [address] [facility] [id number] [place] [address]- 2486 August, [facility] [address] [id number] [place] [address]- 5951 August, [facility] [address] [facility] [id number] [place] [address]- 9425 August, Type 2 diabetes mellitus without complication E11.9 and Pain in left shoulder M25.512 [facility] [address] [facility] [id number] [place] [address]- 6866 Jul, [facility] [id number] [place] [address] 05349- 0552 Jul, Diabetes type 2, controlled E11.9 and Hypertension, benign I10 [facility] [id number] [place] [address] 96718- 3722 Jun, [facility] [id number] [place] [address] 13276- 6114 Jun, [facility] [address] 41033- 3581 Jun, Diabetes 250.00 [facility] [id number] [place] [address] 92321- 0555 Jun, [facility] [id number] [place] [address] 11435- 1192 May, Diabetes type 2, uncontrolled E11.65 [facility] [id number] [place] [address] 88352- 2002 May, [facility] [id number] [place] [address] 58138- 8911 Apr, Type 2 diabetes mellitus without complication E11.9 [facility] [id number] [place] [address] 14679- 0329 Apr, Encounter for immunization Z23 [facility] [id number] [place] [address] 79138- 3764 Apr, [facility] [id number] [place] [address] 01110- 7367 Mar, [facility] [id number] [place] [address] 49661- 3918 Mar, [facility] [id number] [place] [address] 35687- 1178 Mar, [facility] [id number] [place] [address] 34697- 5373 Feb, [facility] [id number] [place] [address] 11914- 5431 Jan, [facility] [address], [place] [address]- 9841 Jan, [facility] [address] 6870 Jan, [facility] [address] 0052 Dec, Diabetes 250.00 and COPD (chronic obstructive pulmonary disease) 496 [facility] [address], [place] [address]- 1741 Dec, [facility] [id number] [place] [address] 89293- 4826 Dec, [facility] [id number] [address]- 4657 Nov, [facility] [id number] [place] [address] 76611- 9850 Oct, Diabetes 250.00 [facility] [address], [place] [address]- 1664 Sep, [facility] [id number] [address]- 9148 Sep, [facility] [address], [place] [address]- 7739 Sep, [facility] [address], [place] [address]- 2001 Sep, Diabetes 250.00 [facility] [address], [place] [address]- 8973 Sep, [facility] [id number] [place] [address] 39516914- 9625 Sep, [facility] [address] 4774 August, Hypertension, essential, benign 401.1 ; Coronary atherosclerosis of [place] coronary artery 414.01 and Diabetic neuropathy associated with type 2 diabetes mellitus 250.60 [facility] [place] [facility] [address] [facility] [id number] [place] [address]- 2847 29 Jul, 2014 [facility] [place] [facility] [address] [facility] [id number] [place] [address]- 5501 14 Jul, 2014 [facility] [place] [facility] [id number] [address]- 4239 Jul, [facility] [place] [facility] [address] [facility] [id number], [place] [address]- 4246 Jun, [facility] [place] [facility] [address] [facility] [id number] [place] [address]- 2649 Jun, [facility] [place] [facility] [address] [facility] [id number] [place] [address]- 6332 Jun, [facility] [place] [facility] [address] [address]- 7025 Jun, [facility] [place] [facility] [address] [facility] [id number], [place] [address]- 2407 Jun, [facility] [place] [facility] [id number] [address]- 4560 May, [facility] [place] [facility] [address] [address]- 6959 May, [facility] [place] [facility] [address], [place] [address]- 5086 May, [facility] [place] [facility] [address], [place] [address]- 0500 May, [facility] [place] [facility] [id number] [address]- 3437 May, [facility] [place] [facility] [address] [facility] [id number] 4250 May, [facility] [place] [facility] [address] [place] 0513 May, [facility] [place] [facility] [address] [id number] [place] [address]- 5286 Apr, [facility] [place] [facility] [address] [id number] [place] [address]- 9320 Apr, [facility] [place] [facility] [address] [id number] [place] [address]- 6333 Apr, [facility] [place] [facility] [address] [id number] [place] [address]- 8596 Apr, [facility] [place] [facility] [address] [id number] [place] [address]- 8663 Mar, [facility] [place] [facility] [address] [id number] [place] 1462 Mar, [facility] [place] [facility] [address] [id number] [place] 6381 Mar, [facility] [place] [facility] [address] [id number] [place] [address]- 3860 Mar, [facility] [place] [facility] [address] [id number] [place] [address]- 3162 Feb, [facility] [place] [facility] [address] [id number] [place] [address]- 1792 Feb, [facility] [place] [facility] [address] [facility] [id number] [place] [address]- 2979 Feb, [facility] [place] [facility] [address] [id number] [place] [address]- 4112 Feb, [facility] [place] [facility] [address] [id number] [place] [address]- 9468 Feb, [facility] [place] [facility] [address] [id number] [place] [address]- 2178 Feb, [facility] [place] [facility] [address] [id number] [place] [address]- 3816 Feb, [facility] [place] [facility] [address] [id number] [place] [address]- 3765 Jan, [facility] [place] [facility] [address] [id number] [place] [address]- 5508 Jan, [facility] [place] [facility] [address] [id number] [place] [address]- 1844 Dec, [facility] [place] [facility] [address] [id number] [place] [address]- 5660 Dec, [facility] [place] [facility] [address] [id number] [place] [address]- 2076 Dec, [facility] [place] [facility] [address] [id number] [place] [address]- 0833 Dec, [facility] [place] [facility] [address] [id number] [place] [address] Dec, [facility] [place] [facility] [address] [id number] [place] [address] Dec, [facility] [place] [facility] [address] [id number] [place] [address] Dec, [facility] [place] [facility] [address] [id number] [place] [address] Dec, [facility] [place] [facility] [address] [id number] [place] [address] Nov, [facility] [place] [facility] [address] [id number] [place] [address] Nov, [facility] [place] [facility] [address] [id number], [place] [address] Nov, [facility] [place] [facility] [address] [id number] [place] [address] Nov, [facility] [place] [facility] [address] [id number] [place] [address] Oct, [facility] [place] [facility] [address] [id number] [place] [address] Oct, [facility] [place] [facility] [address] [id number] [place] [address] Oct, [facility] [place] [facility] [address] [id number] [place] [address] Oct, [facility] [place] [facility] [address] [id number] [place] [address] Oct, [facility] [place] [facility] [address] [id number] [place] [address] Oct, [facility] [place] [facility] [address] [id number] [place] [address] Oct, [facility] [place] [facility] [address] [id number] [place] [address] Oct, [facility] [place] [facility] [address] [id number] [place] [address] Sep, [facility] [place] [facility] [address] [id number] [place] [address] Sep, [facility] [place] [facility] [address] [id number] [place] [address] August, [facility] [place] [facility] [address] [id number] [place] [address] August, [facility] [place] [facility] [address] [id number] [place] [address] Jul, [facility] [place] [facility] [address] [id number] [place] [address] Jul, [facility] [place] [facility] [address] [id number] [place] [address] Jul, [facility] [place] [facility] [address] [id number] [place] [address] Jul, [facility] [place] [facility] [address] [id number] [place] [address] Jul, [facility] [place] [facility] [address] [id number] [place] [address] Jul, [facility] [place] [facility] [address] [id number] [place] [address] Jul, [facility] [place] [facility] [address] [id number] [place] [address] Jul, [facility] [place] [facility] [address] [id number] [place] [address] Jun, [facility] [place] [facility] [address] [id number] [place] [address] Jun, [facility] [place] [facility] [address] [id number] [place] [place] [address] Jun, [facility] [place] [facility] [address] [id number] [place] [address] Jun, [facility] [place] [facility] [address] [id number] [place] [address] May, [facility] [place] [facility] [address] [id number] [place] [address] 57[address] May, [facility] [place] [facility] [address] [id number] [place] [address] 16[address] Apr, [facility] [place] [facility] [address] [id number] [place] [address] Apr, [facility] [place] [facility] [address] [id number] [place] [address] 2016 Mar, [facility] [place] [facility] [address] [id number] [place] [address] 6760 Mar, [facility] [place] [facility] [address] [id number] [place] [address] 7369 Mar, [facility] [place] [facility] [address] [id number] [place] [address] 9190 Mar, [facility] [place] [facility] [address] [id number] [place] [address] Mar, [facility] [place] [facility] [address] [id number], [place] [address] Mar, [facility] [place] [facility] [address] [id number] [place] [address] 2835 Feb, [facility] [place] [facility] [address] [id number], [place] [address] 38[address] Feb, [facility] [place] [facility] [address] [id number] [place] [address] 1088 Feb, [facility] [place] [facility] [address] [id number], [place] [address] 7873 Feb, [facility] [place] [facility] [address] [id number] [place] [address] 1443 Feb, [facility] [place] [facility] [address] [id number] [place] [address]- 0672 Feb, [facility] [place] [facility] [address] [id number], [place] [address] Feb, [facility] [place] [facility] [address] [id number] [place] [address] 3800 Feb, [facility] [place] [facility] [address] [id number], [place] [address] 15 Jan, 2013 [facility] [place] [facility] [address] [id number], [place] [address]- [address] 15 Jan, 2013 [facility] [place] [facility] [address] [id number][place] [address]- 7692 14 Jan, 2013 [facility] [place] [facility] [address] [id number], [place] [address] 6[address] 14 Jan, 2013 [facility] [place] [facility] [address] [id number], [place] [address]91 18 Dec, 2012 [facility] [place] [facility] [address] [id number], [place] [address]- [address]486 13 Dec, 2012 [facility] [place] [facility] [address] [id number], [place] [address] 2012 [facility] [place] [facility] [address] [id number] [place] [address] 1852 Nov, [facility] [address] [id number] [place] [address] 7873 Nov, [facility] [address] [id number] [place] [address] 2546 Oct, [facility] [address] [id number] [place] [address] 7[address] Oct, [facility] [address] [id number] [place] [address] 4300 Oct, [facility] [address] [id number] [place] [address] 5347 Sep, [facility] [address] [id number] [place] [address] 3739 Sep, [facility] [address] [id number] [place] [address]- 7955 Sep, [facility] [address] [id number] [place] [address] 8801 Sep, [facility] [address] [id number] [place] [address] 7303 Sep, [facility] [address] [id number] [place] [address] 8739 Sep, [facility] [address] [id number] [place] [address] 4061 August, [facility] [address] [id number] [place] [address] 8798 August, [facility] [place] [facility] [address] [id number] [place] [address] 9763 August, [facility] [address] [id number] [place] [address] 0276 August, [facility] [address] [id number] [place] [address] 2473 August, [facility] [address] [id number] [place] [address] 5849 August, [facility] [address] [id number] [place] [address] 7675 August, [facility] [address] [id number] [place] [address]226 Jul, [facility] [address] [id number] [place] [address] 7625 Jul, [facility] [address] [id number] [place] [address] 8820 Jun, [facility] [address] [id number] [place] [address] 0524 Jun, [facility] [address] [id number] [place] [address]- 8855 May, [facility] [address] [id number] [place] [address]- 5348 May, [facility] [address] [id number] [place] [address]- 2298 Apr, [facility] [address] [id number] [place] [address] 0336 Mar, [facility] [address] [id number] [place] [address] 8517 Mar, [facility] [place] [facility] [address] [id number], [place] [address] 1408 Mar, [facility] [place] [facility] [address] [id number] [place] [address] 6024 Mar, [facility] [place] [facility] [address] [id number] [place] [address] 5467 Mar, [facility] [place] [facility] [address] [id number] [place] [address] 3244 Mar, [facility] [address] [id number] [place] [address] 1881 Feb, [facility] [place] [facility] [address] [id number] [place] [address] 0817 Feb, [facility] [place] [facility] [address] [id number] [place] [address]- 3180 Feb, [facility] [place] [facility] [address] [id number] [place] [address]- 3478 Feb, [facility] [place] [facility] [address] [id number] [place] [address] 5510 Feb, [facility] [place] [facility] [address] [id number] [place] [address]- 3334 Feb, [facility] [place] [facility] [address] [id number] [place] [address]- 8177 Feb, [facility] [place] [facility] [address] [id number] [place] [address]- 0172 Feb, [facility] [place] [facility] [address] [id number] [place] [address]- 2876 Jan, [facility] [place] [facility] [address] [id number] [place] [address]- 5552 Jan, [facility] [place] [facility] [address] [facility] [id number] [place] [address]- 7083 28 Dec, 2011 [facility] [place] [facility] [address] [id number] [place] [address]- 2526 19 Dec, 2011 [facility] [place] [facility] [address] [id number], [place] [address]- 2541 18 Dec, 2011 [facility] [place] [facility] [address] [id number] [place] [address]- 0004 18 Dec, 2011 [facility] [place] [facility] [address] [id number] [place] [address]- 5166 04 Dec, 2011 [facility] [place] [facility] [address] [id number], [place] [address]- 2988 Nov, [facility] [place] [facility] [address] [id number] [place] [address]- 8629 Oct, [facility] [place] [facility] [address] [id number] [place] [address]- 9545 Oct, [facility] [place] [facility] [address] [id number] [place] [address]- 5386 Sep, [facility] [place] [facility] [address] [id number] [place] [address]- 1957 Sep, [facility] [place] [facility] [address] [id number] [place] [address] 1942 Sep, [facility] [place] [facility] [address] [id number] [place] [address]- 3309 Sep, [facility] [place] [facility] [address] [id number] [place] [address]- 9909 Sep, [facility] [place] [facility] [address] [id number] [place] [address]- 2484 Sep, [facility] [place] [facility] [address] [id number] [place] [address]- 9118 Sep, [facility] [place] [facility] [address] [id number] [place] [address]- 0666 Sep, [facility] [place] [facility] [address] [id number] [place] [address]- 4141 August, [facility] [place] [facility] [address] [id number] [place] [address]- 1244 August, [facility] [place] [facility] [address] [id number] [place] [address]- 5831 August, [facility] [place] [facility] [address] [id number] [place] [address]- 5960 Jul, [facility] [place] [facility] [address] [id number] [place] [address]- 0047 Jul, [facility] [place] [facility] [address] [id number] [place] [address]- 0896 Jun, [facility] [address] [id number] [place] [address]- 1453 Jun, [facility] [place] [facility] [address] [id number] [place] [address]- 2836 Jun, [facility] [place] [facility] [address] [id number] [place] [address]- 7177 Jun, [facility] [place] [facility] [address] [id number] [place] [address]- 1115 May, [facility] [place] [facility] [address] [id number] [place] [address]- 9447 May, [facility] [place] [facility] [address] [id number] [place] [address]- 8288 Apr, [facility] [address] [id number] [place] [address]- 9842 Apr, [facility] [place] [facility] [address] [id number] [place] [address]- 5854 Apr, [facility] [address] [id number] [place] [address]- 8571 Mar, [facility] [place] [facility] [address] [id number] [place] [address]- 1663 Mar, [facility] [place] [facility] [address] [id number] [place] [address]- 1808 Mar, [facility] [place] [facility] [address] [id number] [place] [address]- 1552 Feb, [facility] [place] [facility] [address] [id number] [place] [address]- 9017 Feb, [facility] [place] [facility] [address] [id number] [place] [address]- 3815 Feb, [facility] [place] [facility] [address] [id number] [place] [address]- 8997 Feb, [facility] [place] [facility] [address] [id number] [place] [address]- 1008 25 Jan, 2011 [facility] [address] [id number] [place] [address]- 6492 14 Jan, 2011 [facility] [place] [facility] [address] [id number] [place] [address]- 0384 12 Jan, 2011 [facility] [address] [id number] [place] [address]- 1155 16 Dec, 2010 [facility] [address] [id number] [place] [address]- 2678 13 Oct, 2010 [facility] [address] [id number] [place] [address]- 1979 24 Mar, 2010 [facility] [address] [id number] [place] [address]- 2811 Feb, [facility] [address] [id number] [place] [address]- 6311 Feb, [facility] [address] [id number] [place] [address]- 1168 16 May, 2009 [facility] [address] [id number] [place] [address]- 5952 Apr, [facility] [address] [facility] [id number] [place] [address]- 8894 29 Mar, 2009 [facility] [address] [id number] [place] [address]- 2904 30 Jan, 2009 [facility] [address] [id number] [place] [address]- 7236 15 Oct, 2008 [facility] [place] [facility] [address] [id number] [place] [address]- 1517 16 Jul, 2008 [facility] [place] [facility] [address] [id number] [place] [address]- 2546 04 Mar, 2008 [facility] [place] [facility] [address] [id number] [place] [address]- 8169 Feb, [facility] [address] [facility] [id number] [place] [address]- 2876 Jan, IMMUNIZATIONS No Known Immunizations SOCIAL HISTORY Never Assessed REASON FOR VISIT Controlled Med Refill 10/01/17 PLAN OF CARE VITAL SIGNS MEDICATIONS Medication [...]
--- OUTSIDE RECORDS SUMMARY | 2018-07-05 12:41 | XMS REPORT ---
Author Author KATHYA FISCHER Organization [facility] Address [address] [place] [address] Care Team Providers Care Extract Mixer Name Role Phone KATHYA FISCHER Unavailable PROBLEMS Type Condition ICD9-CM Code CVO65-FN Code Onset Dates Condition Status SNOMED Code Problem Arthritis M19.90 Active 4154245 Problem 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 Active 30642732 Problem Polyneuropathy G62.9 Active 52282639 Problem Other male erectile dysfunction N52.8 Active 709796668 Problem Constipation K59.00 Active 33785981 Problem Type 2 diabetes mellitus with 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 E11.65 Active 786527698 Problem Controlled type 2 diabetes mellitus without complication, without long -term current use of insulin E11.9 Active 490505150 Problem nursing home current use of insulin Z79.4 Active 402776656 Problem Neuropathy G62.9 Active 788768453 Problem Obstructive sleep apnea G47.33 Active 04509334 Problem Hypertension, benign I10 Active 12997310 Problem Uncontrolled type 2 diabetes mellitus without complication, without long-term current use of insulin E11.65 Active 814044053 Problem Stress incontinence of urine N39.3 Active 57569903 Problem Fibromyalgia M79.7 Active 411824222 ALLERGIES No Information ENCOUNTERS Encounter Location Date Diagnosis [facility] [id number] [place] [address] 67723- 1478 Nov, [facility] [id number] [place] [address] 12650- 4302 Nov, [facility] [id number] [place] [address] 72442- 4928 Nov, Type 2 diabetes mellitus with 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 E11.65 [facility] [id number] [place] [address] 72465- 7729 Nov, [facility] [id number] [place] [address] 31835- 7980 Nov, [facility] [id number], [place] [address] 9823 Nov, Constipation K59.00 [facility] [id number] [place] [address] 51529- 6472 Oct, Diabetes type 2, controlled E11.9 [facility] [id number] [place] [address] 44288- 5597 Oct, Type 2 diabetes mellitus with 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 E11.65 ; 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 and Neuropathy G62.9 [facility] [id number] [place] [address] 36994- 1463 Oct, [facility] [id number] [place] [address] 76603- 3391 Oct, [facility] [id number] [place] [address] 64166- 8485 Oct, [facility] [id number] [place] [address] 28471- 3308 Oct, [facility] [id number] [place] [address] 55203- 7108 Oct, [facility] [id number] [address]- 9174 Oct, [facility] [id number] [place] [address] 09771- 5164 Oct, [facility] [id number] [address]- 3375 Sep, [facility] [id number] [address]- 9185 Sep, Uncontrolled type 2 diabetes mellitus without complication, without long-term current use of insulin E11.65 [facility] [address] [address]- 8477 Sep, Hypertension, benign I10 ; Fibromyalgia M79.7 ; Controlled type 2 diabetes mellitus without complication, without long-term current use of insulin E11.9 and Uncontrolled type 2 diabetes mellitus without complication, without long-term current use of insulin E11.65 [facility] [id number] [place] [address] 89652- 9136 Sep, [facility] [id number] [place] [address] 59503- 6851 Sep, Uncontrolled type 2 diabetes mellitus without complication, without long-term current use of insulin E11.65 [facility] [id number] [place] [address] 23064- 9672 Sep, [facility] [id number] [place] [address] 47358- 0213 Sep, [facility] [id number] [place] [address] 09673- 0972 Sep, Uncontrolled type 2 diabetes mellitus without complication, without long-term current use of insulin E11.65 and Fibromyalgia M79.7 [facility] [id number] [place] [address] 33342- 0052 August, [facility] [id number] [place] [address] 55179- 6679 August, [facility] [id number] [place] [address] 96129- 3296 August, [facility] [id number] [place] [address] 22734- 7951 August, Fibromyalgia M79.7 [facility] [id number] [place] [address] 60363- 4460 Jul, Hypertension, benign I10 [facility] [id number] [place] [address] 22069- 6566 Jul, Fibromyalgia M79.7 [facility] [id number] [place] [address] 30912- 3327 Jul, [facility] [id number] [place] [address] 54429- 3712 Jun, [facility] [id number] [place] [address] 99529- 5959 Jun, Hypertension, benign I10 ; Arthritis M19.90 ; 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 and Uncontrolled type 2 diabetes mellitus without complication, without long-term current use of insulin E11.65 [facility] [id number] [place] [address] 02641 -5961 06 Jun, 2017 Acute nasopharyngitis J00 and BMI 50.0-59.9, adult Z68.43 [facility] [address] 33227- 5755 05 Jun, 2017 Fibromyalgia M79.7 [facility] [id number] [place] [address] 17205- 3947 14 May, 2017 [facility] [address] 14617- 4085 02 May, 2017 Fibromyalgia M79.7 [facility] [id number] [place] [address] 44250- 6835 Apr, Fibromyalgia M79.7 [facility] [address] 81619- 3389 Apr, [facility] [id number] [place] [address] 49350- 1653 Apr, [facility] [id number] [place] [address] 72955- 8134 Apr, Arthritis M19.90 [facility] [id number] [place] [address] 25297- 8033 Apr, Arthritis M19.90 [facility] [address] 82340- 9499 Apr, Arthritis M19.90 and Controlled type 2 diabetes mellitus without complication, without long-term current use of insulin E11.9 [facility] [id number] [place] [address] 74725- 7590 Apr, [facility] [id number] [place] [address] 71613- 3153 Apr, Fibromyalgia M79.7 [facility] [id number] [place] [address] 39976- 3053 Mar, [facility] [id number] [place] [address] 92504- 0203 Mar, [facility] [id number] [place] [address] 82759 2542 Mar, Fibromyalgia M79.7 [facility] [id number] [place] [address] 64101- 7619 Feb, [facility] [id number] [place] [address] 75232- 5704 Feb, [facility] [id number] [place] [address] 29432- 5838 Feb, [facility] [id number] [place] [address] 47485- 6243 Feb, Fibromyalgia M79.7 [facility] [id number] [place] [address] 42339- 3484 Feb, Diabetes type 2, uncontrolled E11.65 and Encounter for immunization Z23 [facility] [id number] [place] [address] 48968- 0956 Jan, [facility] [id number] [place] [address] 01912- 9938 Jan, Fibromyalgia M79.7 [facility] [id number] [place] [address] 56626- 6244 Dec, [facility] [id number] [place] [address] 98683- 1312 Dec, Fibromyalgia M79.7 [facility] [id number] [place] [address] 78594- 7893 Nov, [facility] [address], [place] [address]- 0726 Nov, [facility] [id number] [place] [address] 96219- 6000 Nov, 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 and Polyneuropathy G62.9 [facility] [id number] [place] [address] 16068- 9920 Nov, [facility] [id number] [place] [address] 36687- 8421 Nov, [facility] [id number] [place] [address] 07837- 4915 Oct, Diabetes type 2, uncontrolled E11.65 [facility] [id number] [place] [address] 20559- 4950 Oct, Diabetes type 2, uncontrolled E11.65 ; Polyneuropathy G62.9 and Pain in right wrist M25.531 [facility] [id number] [place] [address] 59063- 5775 Oct, [facility] [id number] [place] [address] 89482- 7845 Oct, Pain in left shoulder M25.512 [facility] [address] [address]- 4645 Sep, [facility] [id number] [place] [address] 67867- 4575 Sep, Pain in left shoulder M25.512 [facility] [address] [address]- 1063 Sep, [facility] [id number] [place] [address] 53782- 2211 August, Pain in left shoulder M25.512 [facility] [address] [address]- 6195 Jul, [facility] [id number] [address]- 7647 14 Jul, 2016 [facility] [id number] [place] [address] 59108- 5964 Jul, Pain in left shoulder M25.512 [facility] [address], [place] [address]- 3343 20 Jun, 2016 [facility] [id number] [place] [address] 97547- 1265 Jun, [facility] [id number] [place] [address] 84589- 5170 Jun, Diabetes type 2, uncontrolled E11.65 ; Fibromyalgia M79.7 and Arthritis M19.90 [facility] [id number] [place] [address] 27255- 1026 Jun, Pain in left shoulder M25.512 [facility] [id number] [place] [address] 24716- 8226 May, [facility] [id number] [place] [address] 91024- 8807 May, Diabetes type 2, controlled E11.9 [facility] [id number] [place] [address] 10376- 5294 17 May, 2016 [facility] [id number], [place] [address]- 9907 May, Uncontrolled type 2 diabetes mellitus without complication, without long-term current use of insulin E11.65 [facility] [address], [place] [address]- 2024 15 May, 2016 Pain in left shoulder M25.512 [facility] [id number] [address]- 5729 03 May, 2016 Diabetes type 2, controlled E11.9 and Uncontrolled type 2 diabetes mellitus without complication, without long-term current use of insulin E11.65 [facility] [id number] [place] [address] 81485- 7640 Apr, [facility] [address] [facility] [id number] [place] [address]- 7698 Apr, [facility] [address] [id number] [place] [address]- 9562 Mar, [facility] [address] [facility] [id number] [place] [address]- 7025 Mar, [facility] [address] [facility] [id number] [place] [address] 37060- 9349 Mar, [facility] [address] [facility] [id number] [place] [address]- 7689 Feb, [facility] [id number] [id number] Feb, Dental examination Z01.20 [facility] [id number], [place] [address]- 3038 Jan, [facility] [id number], [place] [address]- 2879 Dec, [facility] [id number] [place] [address] 45732- 7828 Dec, [facility] [id number], [place] [address]- 5572 Dec, [facility] [id number], [place] [address]- 9891 Dec, Diabetes type 2, controlled E11.9 [facility] [address] [id number] [address]- 7746 Nov, [facility] [address] [facility] [id number] [place] [address]- 8016 Nov, [facility] [address] [facility] [id number], [place] [address]- 3080 Nov, [facility] [id number], [place] [address]- 2245 Nov, [facility] [id number] [place] [address]- 4291 Oct, [facility] [id number] [place] [address]- 4135 Oct, [facility] [id number] [address]- 6554 Oct, [facility] [id number] [place] [address] 17843- 9967 Sep, [facility] [id number] [address]- 5298 Sep, Diabetes type 2, controlled E11.9 [facility] [id number], [place] [address]- 2251 Sep, Diabetes type 2, controlled E11.9 [facility] [id number] [place] [address] 61536- 4809 August, [facility] [id number], [place] [address]- 2984 August, [facility] [id number] [place] [address] 16573- 8459 August, Type 2 diabetes mellitus without complication E11.9 and Pain in left shoulder M25.512 [facility] [address], [place] [address]- 0770 Jul, [facility] [id number], [place] [address]- 3802 Jul, Diabetes type 2, controlled E11.9 and Hypertension, benign I10 [facility] [id number], [place] [address]- 1022 Jun, [facility] [id number] [place] [address]- 5843 Jun, [facility] [id number], [place] [address]- 2770 Jun, Diabetes 250.00 [facility] [id number] [address]- 3035 Jun, [facility] [id number] [place] [address] 96462- 5773 May, Diabetes type 2, uncontrolled E11.65 [facility] [id number] [place] [address] 53088- 7709 May, [facility] [id number] [place] [address] 06329- 3791 Apr, Type 2 diabetes mellitus without complication E11.9 [facility] [address] 76820- 8142 Apr, Encounter for immunization Z23 [facility] [id number] [place] [address] 60223- 7115 Apr, [facility] [id number] [place] [address] 47622- 9251 Mar, [facility] [id number] [place] [address] 09323- 4426 Mar, [facility] [id number] [place] [address] 65541- 5087 Mar, [facility] [id number] [place] [address] 64070- 3673 Feb, [facility] [id number] [place] [address] 78617- 8142 Jan, [facility] [id number] [place] [address] 81105- 5850 Jan, [facility] [id number] [place] [address] 99985- 4982 Jan, [facility] [id number] [place] [address] 21823- 6681 Dec, Diabetes 250.00 and COPD (chronic obstructive pulmonary disease) 496 [facility] [address] [place] [address]- 1562 Dec, [facility] [id number], [place] [address]- 6917 Dec, [facility] [id number], [place] [address]- 6461 Nov, [facility] [id number], [place] [address]- 6710 Oct, Diabetes 250.00 [facility] [id number], [place] [address]- 3909 Sep, [facility] [id number], [place] [address]- 6932 Sep, [facility] [id number], [place] [address]- 0302 Sep, [facility] [id number], [place] [address]- 6801 Sep, Diabetes 250.00 [facility] [id number], [place] [address]- 6363 Sep, [facility] [id number], [place] [address]- 3395 Sep, [facility] [id number], [place] [address]- 2412 August, Hypertension, essential, benign 401.1 ; Coronary atherosclerosis of [place] coronary artery 414.01 and Diabetic neuropathy associated with type 2 diabetes mellitus 250.60 [facility] [id number] [address]- 9408 Jul, [facility] [id number] 3056 Jul, [facility] [id number] 7244 Jul, [facility] [id number], [place] [address]- 0260 Jun, [facility] [place] [facility] [address] [id number] [place] [address]- 4591 Jun, [facility] [place] [facility] [address] [id number] [place] [address]- 8204 Jun, [facility] [place] [facility] [address] [id number] [place] [address]- 9820 Jun, [facility] [place] [facility] [address] [id number] [place] [address]- 0739 Jun, [facility] [place] [facility] [address] [id number] [place] [address]- 0089 May, [facility] [place] [facility] [address] [id number] [place] [address]- 8250 May, [facility] [place] [facility] [address] [id number] [place] [address]- 1318 May, [facility] [place] [facility] [address] [id number] [place] [address]- 3959 May, [facility] [place] [facility] [address] [id number] [place] [address]- 6033 May, [facility] [place] [facility] [address] [id number] [place] [address]- 3797 May, [facility] [place] [facility] [address] [id number] [place] [address]- 4043 May, [facility] [place] [facility] [address] [id number] [place] [address] Apr, [facility] [place] [facility] [address] [id number] [place] [address] Apr, [facility] [place] [facility] [address] [id number] [place] [address] Apr, [facility] [place] [facility] [address] [id number] [place] [address] Apr, [facility] [place] [facility] [address] [id number] [place] [address] Mar, [facility] [place] [facility] [address] [id number] [place] [address] Mar, [facility] [place] [facility] [address] [id number] [place] [address] Mar, [facility] [place] [facility] [address] [id number] [place] [address] Mar, [facility] [place] [facility] [address] [id number] [place] [address] Feb, [facility] [place] [facility] [address] [id number] [place] [address] Feb, [facility] [place] [facility] [address] [id number] [place] [address] Feb, [facility] [place] [facility] [address] [id number] [place] [address] Feb, [facility] [place] [facility] [address] [id number] [place] [address] Feb, [facility] [place] [facility] [address] [id number] [place] [address] Feb, [facility] [place] [facility] [address] [id number] [place] [address] Feb, [facility] [place] [facility] [address] [id number] [place] [address] Jan, [facility] [place] [facility] [address] [id number] [place] [address] Jan, [facility] [place] [facility] [address] [id number] [place] [address] Dec, [facility] [place] [facility] [address] [id number] [place] [address] Dec, [facility] [place] [facility] [address] [id number] [place] [address] Dec, [facility] [place] [facility] [address] [id number] [place] [address] 10 Dec, 2013 [facility] [place] [facility] [address] [id number] [place] [address] Dec, [facility] [place] [facility] [address] [id number] [place] [address] Dec, 2013 [facility] [place] [facility] [address] [id number] [place] [address]- [address] Dec, [facility] [place] [facility] [address] [id number] [place] [address] Dec, [facility] [place] [facility] [address] [id number] [place] [address] Nov, [facility] [place] [facility] [address] [id number] [place] [address] Nov, [facility] [place] [facility] [address] [id number] [place] [address] Nov, [facility] [place] [facility] [address] [id number] [place] [address] Nov, [facility] [place] [facility] [address] [id number] [place] [address] Oct, [facility] [place] [facility] [address] [id number] [place] [address] Oct, [facility] [place] [facility] [address] [id number] [place] [address] Oct, [facility] [place] [facility] [address] [id number] [place] [address] Oct, [facility] [place] [facility] [address] [id number] [place] [address] Oct, [facility] [place] [facility] [address] [id number] [place] [address] Oct, [facility] [place] [facility] [address] [id number] [place] [address] Oct, [facility] [place] [facility] [address] [id number] [place] [address]- 1902 Oct, [facility] [place] [facility] [address] [id number] [place] [address] Sep, [facility] [place] [facility] [address] [id number] [place] [address] Sep, [facility] [place] [facility] [address] [id number] [place] [address] August, [facility] [place] [facility] [address] [id number] [place] [address] August, [facility] [place] [facility] [address] [id number] [place] [address] Jul, [facility] [place] [facility] [address] [id number] [place] [address] Jul, [facility] [place] [facility] [address] [id number] [place] [address] Jul, [facility] [place] [facility] [address] [id number] [place] [address] Jul, [facility] [place] [facility] [address] [id number] [place] [address] Jul, [facility] [place] [facility] [address] [id number] [place] [address] Jul, [facility] [place] [facility] [address] [id number] [place] [address] 7289 Jul, [facility] [place] [facility] [address] [id number] [place] [address] Jul, [facility] [place] [facility] [address] [id number] [place] [address]- 87[address] Jun, [facility] [place] [facility] [address] [id number] [place] [address]- [address] Jun, [facility] [place] [facility] [address] [id number] [place] [address]- [address] Jun, [facility] [place] [facility] [address] [id number] [place] [address]- 1426 Jun, [facility] [place] [facility] [address] [id number] [place] [address] 18 May, 2013 [facility] [place] [facility] [address] [id number] [place] [address]- [address] May, [facility] [place] [facility] [address] [id number] [place] [address]- [address] Apr, [facility] [place] [facility] [address] [id number] [place] [address]- 6794 Apr, [facility] [address] [id number] [place] [address]- 27[address] Mar, [facility] [place] [facility] [address] [id number] [place] [address]- 136[address] Mar, [facility] [place] [facility] [address] [id number] [place] [address]- [address]346 Mar, [facility] [place] [facility] [address] [id number] [place] [address]- 1358 Mar, [facility] [place] [facility] [address] [id number] [place] [address] Mar, [facility] [place] [facility] [address] [id number] [place] [address]- 0621 Mar, [facility] [place] [facility] [address] [id number] [place] [address]- 8157 Feb, [facility] [place] [facility] [address] [id number] [place] [address]- [address] Feb, [facility] [place] [facility] [address] [id number] [place] [address]- 2914 Feb, [facility] [place] [facility] [address] [id number] [place] [address]- 1865 Feb, [facility] [place] [facility] [address] [id number] [place] [address]- 3[address] Feb, [facility] [place] [facility] [address] [id number] [place] [address]- [address] 18 Feb, 2013 [facility] [place] [facility] [address] [id number] [place] [address]- 3396 Feb, [facility] [place] [facility] [address] [id number] [place] [address]- 4360 Feb, [facility] [place] [facility] [address] [id number] [place] [address]- [address]783 15 Jan, 2013 [facility] [place] [facility] [address] [id number] [place] [address]- 7562 15 Jan, 2013 [facility] [place] [facility] [address] [id number] [place] [address]- 6173 14 Jan, 2013 [facility] [place] [facility] [address] [id number] [place] [address]- 9328 14 Jan, 2013 [facility] [place] [facility] [address] [id number] [place] [address]- 4277 18 Dec, 2012 [facility] [place] [facility] [address] [id number] [place] [address]- 57[address] Dec, [facility] [place] [facility] [address] [id number] [place] [address] 2012 [facility] [place] [facility] [address] [id number] [place] [address] Nov, [facility] [place] [facility] [address] [id number] [place] [address] 39[address] Nov, [facility] [place] [facility] [address] [id number] [place] [address]- 3612 16 Oct, 2012 [facility] [place] [facility] [address] [id number] [place] [address]- [address]85 Oct, [facility] [place] [facility] [address] [id number] [place] [address]647 Oct, [facility] [address] [id number] [place] [address] 4761 Sep, [facility] [address] [id number] [place] [address]- [address]35 Sep, [facility] [address] [id number] [place] [address]- 2365 Sep, [facility] [address] [id number] [place] [address] 0211 Sep, [facility] [address] [id number] [place] [address]- 5133 Sep, [facility] [address] [id number] [place] [address]- 5582 Sep, [facility] [address] [id number] [place] [address]- 8654 August, [facility] [address] [id number] [place] [address]- 1745 August, [facility] [address] [id number] [place] [address]- 0394 August, [facility] [address] [id number] [place] [address]- 0510 August, [facility] [address] [id number] [place] [address]- 6606 August, [facility] [address] [id number] [place] [address]- 5085 August, [facility] [address] [id number] [place] [address] 3717 August, [facility] [address] [id number] [place] [address] 7659 Jul, [facility] [address] [id number] [place] [address]- 5347 Jul, [facility] [address] [id number] [place] [address] 3031 Jun, [facility] [address] [id number] [place] [address]- 4267 Jun, [facility] [address] [id number] [place] [address]- 0763 May, [facility] [place] [facility] [address] [id number] [place] [address]- 5894 May, [facility] [address] [id number] [place] [address]- 8898 Apr, [facility] [address] [id number] [place] [address]- 7799 Mar, [facility] [address] [id number] [place] [address]- 3448 Mar, [facility] [address] [id number] [place] [address]- 8247 Mar, [facility] [address] [id number] [place] [address]- 9678 Mar, [facility] [address] [facility] [id number] [place] [address]- 5685 Mar, [facility] [address] [id number] [place] [address]- 4323 Mar, [facility] [place] [facility] [address] [id number], [place] [address] Feb, [facility] [place] [facility] [address] [id number] [place] [address]- 6129 Feb, [facility] [place] [facility] [address] [id number] [place] [address]- 5682 Feb, [facility] [place] [facility] [address] [id number] [place] [address]- 1395 Feb, [facility] [place] [facility] [address] [id number] [place] [address]- 7672 Feb, [facility] [place] [facility] [address] [id number] [place] [address]- 9617 Feb, [facility] [place] [facility] [address] [id number] [place] [address]- 7626 Feb, [facility] [place] [facility] [address] [facility] [id number] [place] [address]- 2857 Feb, [facility] [place] [facility] [address] [id number] [place] [address]- 9418 Jan, [facility] [place] [facility] [address] [id number] [place] [address]- 3641 Jan, [facility] [place] [facility] [address] [id number] [place] [address]- 5231 28 Dec, 2011 [facility] [place] [facility] [address] [id number] [place] [address]- 8750 Dec, [facility] [place] [facility] [address] [id number] [place] [address]- 5433 18 Dec, 2011 [facility] [place] [facility] [address] [id number] [place] [address]- 9099 18 Dec, 2011 [facility] [place] [facility] [address] [facility] [id number] [place] [address]- 9253 Dec, [facility] [place] [facility] [id number] [place] [address]- 7521 Nov, [facility] [place] [facility] [address] [id number] [place] [address]- 5063 Oct, [facility] [place] [facility] [address] [id number] [place] [address]- 8783 Oct, [facility] [place] [facility] [address] [facility] [id number] [place] [address]- 1194 Sep, [facility] [place] [facility] [address] [facility] [id number] [place] [address]- 6137 Sep, [facility] [place] [facility] [address] [id number] [place] [address]- 4270 Sep, [facility] [place] [facility] [address] [id number] [place] [address]- 6672 Sep, [facility] [place] [facility] [address] [id number] [place] [address]- 6932 Sep, [facility] [place] [facility] [address] [id number] [place] [address]- 1911 Sep, [facility] [place] [facility] [address] [id number] [place] [address]- 9816 Sep, [facility] [place] [facility] [address] [id number] [place] [address]- 3959 Sep, [facility] [place] [facility] [address] [id number] [place] [address]- 7040 August, [facility] [place] [facility] [address] [id number] [place] [address]- 6297 August, [facility] [place] [facility] [address] [id number] [place] [address]- 8298 August, [facility] [place] [facility] [address] [id number] [place] [address]- 4759 Jul, [facility] [place] [facility] [address] [id number] [place] [address]- 6974 Jul, [facility] [place] [facility] [address] [id number] [place] [address]- 4300 Jun, [facility] [place] [facility] [address] [id number] [place] [address]- 7603 Jun, [facility] [place] [facility] [address] [id number] [place] [address]- 5769 Jun, [facility] [place] [facility] [address] [id number] [place] [address]- 5312 Jun, [facility] [place] [facility] [address] [id number] [place] [address]- 1090 May, [facility] [place] [facility] [address] [id number] [place] [address]- 9445 May, [facility] [place] [facility] [address] [id number] [place] [address]- 5015 Apr, [facility] [place] [facility] [address] [id number] [place] [address]- 9069 Apr, [facility] [place] [facility] [address] [id number] [place] [address]- 0574 Apr, [facility] [place] [facility] [address] [id number] [place] [address]- 7777 Mar, [facility] [place] [facility] [address] [id number] [place] [address]- 0963 Mar, [facility] [place] [facility] [address] [id number] [place] [address]- 6146 Mar, [facility] [place] [facility] [address] [id number] [place] [address]- 6924 Feb, [facility] [place] [facility] [address] [id number] [place] [address]- 1625 Feb, [facility] [place] [facility] [address] [id number] [place] [address]- 7525 Feb, [facility] [place] [facility] [address] [id number], [place] [address] 1961 Feb, [facility] [place] [facility] [address] [id number], [place] [address]- 5232 Jan, [facility] [place] [facility] [address] [id number] [place] [address]- 2874 14 Jan, 2011 [facility] [place] [facility] [address] [id number], [place] [address]- 4029 12 Jan, 2011 [facility] [place] [facility] [address] [id number] [place] [address]- 1383 16 Dec, 2010 [facility] [place] [facility] [id number], [place] [address]- 9572 13 Oct, 2010 [facility] [id number], [place] [address]- 2213 Mar, [facility] [id number], [place] [address]- 2409 Feb, [facility] [id number], [place] [address]- 8783 Feb, [facility] [id number], [place] [address]- 7740 May, [facility] [id number] [place] [address]- 1212 Apr, [facility] [id number], [place] [address]- 6995 Mar, [facility] [id number], [place] [address]- 6320 Jan, [facility] [id number], [place] [address]- 8354 Oct, [facility] [id number], [place] [address]- 2479 Jul, [facility] [address] [id number], [place] [address]- 2244 Mar, [facility] [address] [id number], [place] [address]- 3764 Feb, [facility] [address] [id number], [place] [address]- 1779 Jan, IMMUNIZATIONS No Known Immunizations SOCIAL HISTORY [...]
--- OUTSIDE RECORDS SUMMARY | 2018-07-05 12:42 | XMS REPORT ---
Author Author KATHYA FISCHER Organization [facility] Address [address] [place] [address] Care Team Providers Care Exchange Architect Name Role Phone KATHYA FISCHER Unavailable PROBLEMS Type Condition ICD9-CM Code CPD74-LD Code Onset Dates Condition Status SNOMED Code Problem Arthritis M19.90 Active 6586709 Problem 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 Active 58296096 Problem Polyneuropathy G62.9 Active 68851054 Problem Other male erectile dysfunction N52.8 Active 937981245 Problem Constipation K59.00 Active 40445814 Problem Type 2 diabetes mellitus with 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 E11.65 Active 167065129 Problem Controlled type 2 diabetes mellitus without complication, without long -term current use of insulin E11.9 Active 759584505 Problem care home current use of insulin Z79.4 Active 916805074 Problem Neuropathy G62.9 Active 117113497 Problem Obstructive sleep apnea G47.33 Active 74417168 Problem Hypertension, benign I10 Active 97505388 Problem Uncontrolled type 2 diabetes mellitus without complication, without long-term current use of insulin E11.65 Active 901619569 Problem Stress incontinence of urine N39.3 Active 39178295 Problem Fibromyalgia M79.7 Active 341058274 ALLERGIES No Information ENCOUNTERS Encounter Location Date Diagnosis [facility] [id number] [place] [address] 74410- 2533 Nov, [facility] [id number] [place] [address] 51529- 9500 Nov, [facility] [id number] [place] [address] 77226- 7044 Nov, [facility] [id number] [place] [address] 38912- 2827 Nov, [facility] [id number] [place] [address] 50377- 8854 Nov, Constipation K59.00 [facility] [address] [address] 0183 Oct, Diabetes type 2, controlled E11.9 [facility] [address] [address] 1718 Oct, Type 2 diabetes mellitus with 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 E11.65 ; 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 and Neuropathy G62.9 [facility] [address] [address] 7191 Oct, [facility] [id number] [address]- 3597 Oct, [facility] [id number] [place] [address] 30254- 2359 Oct, [facility] [id number] [place] [address] 53485- 5093 Oct, [facility] [id number] [place] [address] 25269- 0110 Oct, [facility] [address] [address]- 0230 Oct, [facility] [address] [address]- 6607 Oct, [facility] [address], [place] [address]- 3806 Sep, [facility] [address] [address]- 5748 Sep, Uncontrolled type 2 diabetes mellitus without complication, without long-term current use of insulin E11.65 [facility] [address] [address]- 8496 Sep, Hypertension, benign I10 ; Fibromyalgia M79.7 ; Controlled type 2 diabetes mellitus without complication, without long-term current use of insulin E11.9 and Uncontrolled type 2 diabetes mellitus without complication, without long-term current use of insulin E11.65 [facility] [id number] [place] [address] 94758- 1963 Sep, [facility] [id number] [place] [address] 46895- 1036 Sep, Uncontrolled type 2 diabetes mellitus without complication, without long-term current use of insulin E11.65 [facility] [id number] [place] [address] 53618- 7206 Sep, [facility] [id number] [place] [address] 70960- 6128 Sep, [facility] [id number] [place] [address] 45126- 9750 Sep, Uncontrolled type 2 diabetes mellitus without complication, without long-term current use of insulin E11.65 and Fibromyalgia M79.7 [facility] [id number] [place] [address] 36961- 5117 August, [facility] [id number] [place] [address] 02663- 4421 August, [facility] [id number] [place] [address] 21261- 1876 August, [facility] [id number] [place] [address] 92489- 7214 August, Fibromyalgia M79.7 [facility] [id number] [place] [address] 25319- 6168 Jul, Hypertension, benign I10 [facility] [id number] [place] [address] 68337 2548 Jul, Fibromyalgia M79.7 [facility] [id number] [place] [address] 848622- 2296 Jul, [facility] [id number] [place] [address] 50282475- 4815 Jun, [facility] [id number] [place] [address] 90555- 8959 Jun, Hypertension, benign I10 ; Arthritis M19.90 ; care home current use 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 Z79.891 and Uncontrolled type 2 diabetes mellitus without complication, without long-term current use of insulin E11.65 [facility] [id number] [place] [address] 29722 -0098 06 Jun, 2017 Acute nasopharyngitis J00 and BMI 50.0-59.9, adult Z68.43 [facility] [address] 79106- 4915 Jun, Fibromyalgia M79.7 [facility] [id number] [place] [address] 28239- 8822 14 May, 2017 [facility] [address] 99220- 0864 02 May, 2017 Fibromyalgia M79.7 [facility] [address] 33812- 1927 Apr, Fibromyalgia M79.7 [facility] [id number] [place] [address] 36367- 6284 Apr, [facility] [address] 59088- 8934 Apr, [facility] [id number] [place] [address] 75024- 4950 Apr, Arthritis M19.90 [facility] [address] 36446- 4097 Apr, Arthritis M19.90 [facility] [id number] [place] [address] 11047- 6053 Apr, Arthritis M19.90 and Controlled type 2 diabetes mellitus without complication, without long-term current use of insulin E11.9 [facility] [id number] [place] [address] 45044- 8959 Apr, [facility] [id number] [place] [address] 22511- 9797 Apr, Fibromyalgia M79.7 [facility] [id number] [place] [address] 44584- 0654 Mar, [facility] [id number] [place] [address] 98500- 7735 Mar, [facility] [id number] [place] [address] 34452- 7994 Mar, Fibromyalgia M79.7 [facility] [address] 60896- 0738 Feb, [facility] [address] 43056- 3660 Feb, [facility] [address] 78666- 1174 Feb, [facility] [address] 46262- 1229 Feb, Fibromyalgia M79.7 [facility] [id number] [place] [address] 19794- 3539 Feb, Diabetes type 2, uncontrolled E11.65 and Encounter for immunization Z23 [facility] [id number] [place] [address] 06110- 5136 Jan, [facility] [id number] [place] [address] 52268- 8777 Jan, Fibromyalgia M79.7 [facility] [id number] [place] [address] 02390- 4761 Dec, [facility] [id number] [place] [address] 84324- 2943 Dec, Fibromyalgia M79.7 [facility] [id number] [place] [address] 72708- 2256 Nov, [facility] [id number] [place] [address] 64075- 1867 Nov, [facility] [id number] [place] [address] 88752- 4254 Nov, 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 and Polyneuropathy G62.9 [facility] [id number] [place] [address] 10861- 8486 Nov, [facility] [id number] [place] [address] 37415- 4949 Nov, [facility] [id number] [place] [address] 32276- 1425 Oct, Diabetes type 2, uncontrolled E11.65 [facility] [id number] [place] [address] 46469- 7984 Oct, Diabetes type 2, uncontrolled E11.65 ; Polyneuropathy G62.9 and Pain in right wrist M25.531 [facility] [id number] [place] [address] 07150- 6376 Oct, [facility] [id number] [place] [address] 70951- 6440 Oct, Pain in left shoulder M25.512 [facility] [id number] [place] [address] 08711- 8545 Sep, [facility] [id number] [place] [address] 94221- 9125 Sep, Pain in left shoulder M25.512 [facility] [id number] [place] [address] 37019- 2781 Sep, [facility] [id number] [place] [address] 55782- 9058 August, Pain in left shoulder M25.512 [facility] [id number] [place] [address] 08162- 4751 Jul, [facility] [id number] [place] [address] 09082- 6816 Jul, [facility] [id number] [place] [address] 16717- 3009 Jul, Pain in left shoulder M25.512 [facility] [address], [place] [address]- 3250 Jun, [facility] [address], [place] [address]- 3666 Jun, [facility] [id number] [place] [address] 51090- 0371 Jun, Diabetes type 2, uncontrolled E11.65 ; Fibromyalgia M79.7 and Arthritis M19.90 [facility] [id number] [address]- 4381 Jun, Pain in left shoulder M25.512 [facility] [id number] [address]- 5326 May, [facility] [id number] [place] [address] 43260- 9677 May, Diabetes type 2, controlled E11.9 [facility] [address], [place] [address]- 0295 May, [facility] [address], [place] [address]- 8704 May, Uncontrolled type 2 diabetes mellitus without complication, without long-term current use of insulin E11.65 [facility] [address], [place] [address]- 0534 May, Pain in left shoulder M25.512 [facility] [id number], [place] [address]- 8385 May, Diabetes type 2, controlled E11.9 and Uncontrolled type 2 diabetes mellitus without complication, without long-term current use of insulin E11.65 [facility] [address], [place] [address]- 6715 Apr, [facility] [address], [place] [address]- 8556 Apr, [facility] [address] [id number] [place] [address]- 4017 Mar, [facility] [address] [id number] [place] [address]- 8140 Mar, [facility] [address] [id number] [place] [address]- 5697 Mar, [facility] [id number] [place] [address], [place] [address]- 0803 Feb, [facility] [address] [id number] [id number] Feb, Dental examination Z01.20 [facility] [id number] [place] [address] 09265- 9305 Jan, [facility] [address] [id number] [place] [address]- 4952 Dec, [facility] [address] [id number], [place] [address]- 2088 Dec, [facility] [id number] [place] [address], [place] [address]- 5554 Dec, [facility] [address], [place] [address]- 5348 Dec, Diabetes type 2, controlled E11.9 [facility] [address] [id number], [place] [address]- 5363 Nov, [facility] [address] [id number], [place] [address]- 0491 Nov, [facility] [address] [id number], [place] [address]- 6640 Nov, [facility] [address] [id number], [place] [address]- 0037 Nov, [facility] [address] [id number] [place] [address]- 5470 Oct, [facility] [address], [place] [address]- 8600 Oct, [facility] [id number] [place] [address] 71840- 8156 Oct, [facility] [address], [place] [address]- 1309 Sep, [facility] [id number] [place] [address] 76571- 4826 Sep, Diabetes type 2, controlled E11.9 [facility] [address], [place] [address]- 3069 Sep, Diabetes type 2, controlled E11.9 [facility] [id number] [place] [address] 09110- 9398 August, [facility] [id number] [place] [address] 26705- 7084 August, [facility] [address] [place] [address] 31842- 1280 August, Type 2 diabetes mellitus without complication E11.9 and Pain in left shoulder M25.512 [facility] [address], [place] [address]- 6766 Jul, [facility] [address], [place] [address]- 8025 Jul, Diabetes type 2, controlled E11.9 and Hypertension, benign I10 [facility] [address], [place] [address]- 0777 Jun, [facility] [address], [place] [address]- 0533 Jun, [facility] [address], [place] [address]- 7161 Jun, Diabetes 250.00 [facility] [id number] [place] [address]- 2617 Jun, [facility] [id number] [place] [address] 67263- 4629 May, Diabetes type 2, uncontrolled E11.65 [facility] [id number] [place] [address] 80525- 3645 May, [facility] [id number] [place] [address] 28173- 4934 Apr, Type 2 diabetes mellitus without complication E11.9 [facility] [id number] [place] [address] 24599- 0320 Apr, Encounter for immunization Z23 [facility] [address] 73434- 9536 Apr, [facility] [id number] [place] [address] 17627- 5283 Mar, [facility] [id number] [place] [address] 62009- 3344 Mar, [facility] [id number] [place] [address] 91729- 2991 Mar, [facility] [id number] [place] [address] 44106- 2628 Feb, [facility] [id number] [place] [address] 50446- 2337 Jan, [facility] [id number] [place] [address] 21553- 1044 Jan, [facility] [id number] [place] [address] 32752- 0061 Jan, [facility] [id number] [place] [address] 17242- 3772 Dec, Diabetes 250.00 and COPD (chronic obstructive pulmonary disease) 496 [facility] [id number] [place] [address] 72062- 3769 Dec, [facility] [id number] [place] [address] 33196- 2546 Dec, [facility] [address], [place] [address]- 0214 Nov, [facility] [address], [place] [address]- 4576 Oct, Diabetes 250.00 [facility] [address] 6395 Sep, [facility] [id number] [place] [address] 81698- 0338 Sep, [facility] [id number] [place] [address] 74308- 6486 Sep, [facility] [id number] [place] [address] 257958- 5599 Sep, Diabetes 250.00 [facility] [id number] [place] [address] 50513- 4198 Sep, [facility] [id number] [place] [address] 77299- 4339 Sep, [facility] [id number] [place] [address] 641192- 9788 August, Hypertension, essential, benign 401.1 ; Coronary atherosclerosis of [place] coronary artery 414.01 and Diabetic neuropathy associated with type 2 diabetes mellitus 250.60 [facility] [address] [address]- 1837 Jul, [facility] [address] [address]- 9961 Jul, [facility] [address] 0022 Jul, [facility] [address], [place] [address]- 0602 Jun, [facility] [address] 0769 Jun, [facility] [place] [facility] [address] [id number] [place] [address]- 1104 Jun, [facility] [place] [facility] [address] [id number] [place] [address]- 9715 Jun, [facility] [place] [facility] [address] [id number] [place] [address]- 1437 Jun, [facility] [place] [facility] [address] [id number] [place] [address]- 7497 May, 2014 [facility] [place] [facility] [address] [id number] [place] [address]- 7207 May, 2014 [facility] [place] [facility] [address] [id number] [place] [address]- 1699 May, 2014 [facility] [place] [facility] [address] [id number] [place] [address]- 8934 May, 2014 [facility] [place] [facility] [address] [id number] [place] [address]- 8668 May, 2014 [facility] [place] [facility] [address] [id number] [place] [address]- 2617 May, [facility] [place] [facility] [address] [id number] [place] [address]- 2210 May, [facility] [place] [facility] [address] [id number] [place] [address]- 5177 Apr, [facility] [place] [facility] [address] [id number] [place] [address]- 3191 Apr, [facility] [place] [facility] [address] [id number] [place] [address]- 7372 Apr, [facility] [place] [facility] [address] [id number] [place] [address]- 5553 Apr, [facility] [place] [facility] [address] [id number] [place] [address]- 7290 Mar, [facility] [place] [facility] [address] [id number] [place] [address]- 9042 Mar, [facility] [place] [facility] [address] [id number] [place] [address]- 7609 Mar, [facility] [place] [facility] [address] [id number] [place] [address]- 5136 Mar, [facility] [place] [facility] [address] [id number] [place] [address]- 0975 Feb, [facility] [place] [facility] [address] [id number] [place] [address] Feb, [facility] [place] [facility] [address] [id number] [place] [address] Feb, [facility] [place] [facility] [address] [id number] [place] [address] Feb, [facility] [place] [facility] [address] [id number] [place] [address] Feb, [facility] [place] [facility] [address] [id number] [place] [address] Feb, [facility] [place] [facility] [address] [id number] [place] [address] Feb, [facility] [place] [facility] [address] [id number] [place] [address] Jan, [facility] [place] [facility] [address] [id number] [place] [address] Jan, [facility] [place] [facility] [address] [id number], [place] [address] Dec, [facility] [place] [facility] [address] [id number] [place] [address] Dec, [facility] [place] [facility] [address] [id number] [place] [address] Dec, [facility] [place] [facility] [address] [id number], [place] [address] Dec, [facility] [place] [facility] [address] [id number] [place] [address] 04 Dec, 2013 [facility] [place] [facility] [address] [id number] [place] [address] 04 Dec, 2013 [facility] [place] [facility] [address] [id number] [place] [address] 03 Dec, 2013 [facility] [place] [facility] [address] [id number] [place] [address] Dec, 2013 [facility] [place] [facility] [address] [id number] [place] [address] Nov, [facility] [place] [facility] [address] [id number] [place] [address] Nov, [facility] [place] [facility] [address] [id number] [place] [address] Nov, [facility] [place] [facility] [address] [id number] [place] [address] Nov, [facility] [place] [facility] [address] [id number] [place] [address] Oct, [facility] [place] [facility] [address] [id number] [place] [address] Oct, [facility] [place] [facility] [address] [id number] [place] [address] Oct, [facility] [place] [facility] [address] [id number] [place] [address] Oct, [facility] [place] [facility] [address] [id number] [place] [address] 9516 Oct, [facility] [place] [facility] [address] [id number] [place] [address] Oct, [facility] [place] [facility] [address] [id number] [place] [address] Oct, [facility] [place] [facility] [address] [id number] [place] [address] Oct, [facility] [place] [facility] [address] [id number] [place] [address] Sep, [facility] [place] [facility] [address] [id number] [place] [address] Sep, [facility] [place] [facility] [address] [id number] [place] [address] 85[address] August, [facility] [place] [facility] [address] [id number] [place] [address] August, [facility] [place] [facility] [address] [id number] [place] [address] Jul, [facility] [place] [facility] [address] [id number] [place] [address] Jul, [facility] [place] [facility] [address] [id number] [place] [address] Jul, [facility] [place] [facility] [address] [id number] [place] [address] Jul, [facility] [place] [facility] [address] [id number] [place] [address] Jul, [facility] [place] [facility] [address] [id number] [place] [address] Jul, [facility] [place] [facility] [address] [id number] [place] [address] Jul, [facility] [place] [facility] [address] [id number], [place] [address] Jul, [facility] [place] [facility] [address] [address] [id number] [place] [address] Jun, [facility] [place] [facility] [address] [id number] [place] [address] Jun, [facility] [place] [facility] [address] [id number] [place] [address] Jun, [facility] [place] [facility] [address] [id number] [place] [address] Jun, [facility] [address] [id number] [place] [address] 18 May, 2013 [facility] [address] [id number] [place] [address]67 18 May, 2013 [facility] [address] [id number] [place] [address]117 Apr, [facility] [address] [id number] [place] [address]449 Apr, [facility] [address] [id number] [place] [address] Mar, [facility] [address] [id number] [place] [address] 8927 Mar, [facility] [address] [id number] [place] [address] Mar, [facility] [address] [id number] [place] [address] Mar, [facility] [address] [id number] [place] [address] 7857 Mar, [facility] [address] [facility] [id number] [place] [address] 8907 Mar, [facility] [place] [facility] [address] [id number] [place] [address] 3085 Feb, [facility] [address] [id number] [place] [address] 1728 Feb, [facility] [place] [facility] [address] [id number] [place] [address] 7618 Feb, [facility] [place] [facility] [address] [id number] [place] [address] 0869 Feb, [facility] [place] [facility] [address] [id number] [place] [address] 2280 Feb, [facility] [place] [facility] [address] [id number] [place] [address] 4157 18 Feb, 2013 [facility] [place] [facility] [address] [id number] [place] [address] 7749 Feb, [facility] [place] [facility] [address] [id number] [place] [address]- 4558 Feb, [facility] [place] [facility] [address] [id number] [place] [address] 15 Jan, 2013 [facility] [place] [facility] [address] [id number] [place] [address]- 1103 15 Jan, 2013 [facility] [place] [facility] [address] [id number] [place] [address]- [address]238 14 Jan, 2013 [facility] [place] [facility] [address] [id number] [place] [address]- 6239 14 Jan, 2013 [facility] [place] [facility] [address] [id number] [place] [address] 6261 18 Dec, 2012 [facility] [place] [facility] [address] [id number] [place] [address] 2411 Dec, [facility] [place] [facility] [address] [id number], [place] [address] Dec, [facility] [place] [facility] [address] [id number], [place] [address] Nov, [facility] [place] [facility] [address] [id number], [place] [address]696 Nov, [facility] [place] [facility] [address] [id number] [place] [address]- 9095 Oct, [facility] [place] [facility] [address] [id number], [place] [address] Oct, [facility] [place] [facility] [address] [id number], [place] [address] 34[address] Oct, [facility] [place] [facility] [address] [id number], [place] [address] 8974 28 Sep, 2012 [facility] [address] [id number] [place] [address] 3710 Sep, [facility] [place] [facility] [address] [id number] [place] [address] 2[address] Sep, [facility] [address] [id number] [place] [address] 9704 Sep, [facility] [place] [facility] [address] [id number] [place] [address]- 5670 Sep, [facility] [address] [id number] [place] [address] 0246 Sep, [facility] [address] [id number] [place] [address] 0080 August, [facility] [address] [id number] [place] [address]- 8517 August, [facility] [address] [id number] [place] [address] 7607 August, [facility] [address] [id number] [place] [address]- 9871 August, [facility] [place] [facility] [address] [id number] [place] [address] 6834 August, [facility] [address] [id number] [place] [address]- 7993 August, [facility] [place] [facility] [address] [id number] [place] [address]- 5155 August, [facility] [place] [facility] [address] [id number] [place] [address] 9006 Jul, [facility] [place] [facility] [address] [id number] [place] [address] 1849 Jul, [facility] [place] [facility] [address] [id number] [place] [address]- 6440 Jun, [facility] [place] [facility] [address] [id number] [place] [address] 3327 Jun, [facility] [place] [facility] [address] [id number] [place] [address]- 9226 May, [facility] [place] [facility] [address] [id number] [place] [address] 2546 May, [facility] [place] [facility] [address] [id number] [place] [address]- 6911 Apr, [facility] [place] [facility] [address] [id number] [place] [address]- 2252 Mar, [facility] [place] [facility] [address] [id number] [place] [address]- 7826 Mar, [facility] [place] [facility] [address] [id number] [place] [address] 8771 Mar, [facility] [place] [facility] [address] [id number] [place] [address] 8820 Mar, [facility] [place] [facility] [address] [id number] [place] [address] 0647 Mar, [facility] [place] [facility] [address] [id number] [place] [address] 2540 Mar, [facility] [place] [facility] [address] [id number] [place] [address]- 1135 Feb, [facility] [place] [facility] [address] [id number] [place] [address] 2542 Feb, [facility] [place] [facility] [address] [id number] [place] [address] 2540 Feb, [facility] [place] [facility] [address] [id number] [place] [address] 2546 Feb, [facility] [place] [facility] [address] [id number] [place] [address] 2546 Feb, [facility] [place] [facility] [address] [id number] [place] [address]- 4529 Feb, [facility] [place] [facility] [address] [id number] [place] [address]- 5577 Feb, [facility] [place] [facility] [address] [id number] [place] [address]- 2427 Feb, [facility] [place] [facility] [address] [facility] [id number] [place] [address]- 0771 Jan, [facility] [place] [facility] [address] [id number] [place] [address]- 6399 Jan, [facility] [place] [facility] [address] [id number] [place] [address]- 6419 28 Dec, 2011 [facility] [place] [facility] [address] [id number] [place] [address]- 8640 Dec, [facility] [place] [facility] [address] [facility] [id number] [place] [address]- 3507 Dec, [facility] [place] [facility] [address] [id number], [place] [address]- 9378 Dec, [facility] [place] [facility] [address] [id number] [place] [address]- 5117 Dec, [facility] [place] [facility] [address] [facility] [id number] [place] [address]- 2291 Nov, [facility] [place] [facility] [address] [facility] [id number], [place] [address]- 1416 Oct, [facility] [place] [facility] [address] [id number], [place] [address]- 1382 Oct, [facility] [place] [facility] [address] [id number] [place] [address]- 5646 Sep, [facility] [place] [facility] [address] [facility] [id number], [place] [address]- 0874 Sep, [facility] [place] [facility] [address] [facility] [id number], [place] [address]- 5571 Sep, [facility] [place] [facility] [address] [id number] [place] [address]- 9151 Sep, [facility] [place] [facility] [address] [id number] [place] [address]- 7336 Sep, [facility] [place] [facility] [address] [id number] [place] [address]- 8606 Sep, [facility] [place] [facility] [address] [id number] [place] [address]- 8206 Sep, [facility] [place] [facility] [address] [id number] [place] [address]- 6574 Sep, [facility] [place] [facility] [address] [id number] [place] [address]- 2416 August, [facility] [place] [facility] [address] [id number] [place] [address]- 5774 August, [facility] [place] [facility] [address] [id number] [place] [address]- 0469 August, [facility] [place] [facility] [address] [id number] [place] [address]- 5989 Jul, [facility] [place] [facility] [address] [id number] [place] [address]- 1817 Jul, [facility] [place] [facility] [address] [facility] [id number] [place] [address]- 3675 Jun, [facility] [place] [facility] [address] [id number] [place] [address] 2546 Jun, [facility] [place] [facility] [address] [id number] [place] [address]- 3290 Jun, [facility] [place] [facility] [address] [id number] [place] [address]- 6505 Jun, [facility] [place] [facility] [address] [id number] [place] [address]- 8896 May, [facility] [place] [facility] [address] [id number] [place] [address]- 8561 May, [facility] [place] [facility] [address] [id number] [place] [address]- 0431 Apr, [facility] [place] [facility] [address] [id number] [place] [address]- 3777 Apr, [facility] [place] [facility] [address] [id number] [place] [address]- 7353 Apr, [facility] [place] [facility] [address] [id number] [place] [address]- 4883 Mar, [facility] [place] [facility] [address] [id number] [place] [address]- 2150 Mar, [facility] [place] [facility] [address] [id number] [place] [address]- 2758 Mar, [facility] [place] [facility] [address] [facility] [id number] [place] [address]- 2792 Feb, [facility] [place] [facility] [address] [id number], [place] [address]- 0243 Feb, [facility] [place] [facility] [address] [id number] [place] [address]- 2037 Feb, [facility] [place] [facility] [address] [facility] [id number], [place] [address]- 7482 Feb, [facility] [place] [facility] [address] [facility] [id number], [place] [address]- 2024 Jan, [facility] [place] [facility] [address] [id number], [place] [address]- 3061 14 Jan, 2011 [facility] [place] [facility] [address] [id number], [place] [address]- 7550 Jan, [facility] [place] [facility] [address] [id number], [place] [address]- 3784 16 Dec, 2010 [facility] [place] [facility] [address] [id number], [place] [address]- 7215 Oct, [facility] [place] [facility] [address] [id number], [place] [address]- 1761 Mar, [facility] [id number], [place] [address]- 6802 Feb, [facility] [id number], [place] [address]- 7096 Feb, [facility] [id number], [place] [address]- 5023 May, [facility] [id number] [place] [address]- 9000 Apr, [facility] [id number] [place] [address]- 8983 Mar, [facility] [id number] [place] [address]- 6180 Jan, [facility] [id number] [place] [address]- 6111 Oct, [facility] [id number], [place] [address]- 2642 Jul, [facility] [id number] [place] [address]- 1834 Mar, [facility] [id number], [place] [address]- 7685 Feb, [facility] [id number], [place] [address]- 5772 Jan, IMMUNIZATIONS No Known Immunizations SOCIAL HISTORY [...]
--- OUTSIDE RECORDS SUMMARY | 2018-07-05 12:43 | XMS REPORT ---
Author Author KATHYA FISCHER Organization [facility] Address [address] [place] [address] Care Team Providers Care Fireman Helper Name Role Phone KATHYA FISCHER Unavailable PROBLEMS Type Condition ICD9-CM Code PDZ49-QR Code Onset Dates Condition Status SNOMED Code Problem Fibromyalgia M79.7 Active 052904624 Problem Polyneuropathy G62.9 Active 74151393 Problem Arthritis M19.90 Active 3748160 Problem Stress incontinence of urine N39.3 Active 81126688 Problem Obstructive sleep apnea G47.33 Active 98995264 Problem Hypertension, benign I10 Active 95680727 Problem Uncontrolled type 2 diabetes mellitus without complication, without long-term current use of insulin E11.65 Active 600700861 Problem Constipation K59.00 Active 67312482 Problem Type 2 diabetes mellitus with 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 E11.65 Active 816265557 Problem Controlled type 2 diabetes mellitus without complication, without long -term current use of insulin E11.9 Active 711690064 Problem 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 Active 20975192 Problem rn long term care current use of insulin Z79.4 Active 925109701 Problem Neuropathy G62.9 Active 810984831 ALLERGIES No Information ENCOUNTERS Encounter Location Date Diagnosis [place] [id number] [place] [address] 27840- 5107 Nov, [place] [id number] [place] [address] 23995- 0986 Nov, Constipation K59.00 [place] [address] [address]- 1737 Oct, Diabetes type 2, controlled E11.9 [place] [id number] [place] [address] 40097- 9886 Oct, Type 2 diabetes mellitus with 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 E11.65 ; penitentiary current use of insulin Z79.4 and Neuropathy G62.9 [place] [address] [facility] [id number] [place] [address]- 0485 Oct, [facility] [address] [facility] [id number] [place] 0895 Oct, [facility] [address] [facility] [id number] [place] [address]- 0836 Oct, [facility] [address] [facility] [id number] [place] [address]- 3644 Oct, [facility] [address] [facility] [id number] [place] [address]- 6006 Oct, [facility] [address] [facility] [id number] [place] [address]- 5434 Oct, [facility] [id number] [place] [address] 2121 Oct, [facility] [address] [place] [address]- 8890 Sep, [facility] [id number] [address] 6032 Sep, Uncontrolled type 2 diabetes mellitus without complication, without long-term current use of insulin E11.65 [facility] [id number], [place] [address] 5115 Sep, Hypertension, benign I10 ; Fibromyalgia M79.7 ; Controlled type 2 diabetes mellitus without complication, without long-term current use of insulin E11.9 and Uncontrolled type 2 diabetes mellitus without complication, without long-term current use of insulin E11.65 [facility] [id number], [place] [address]- 6704 Sep, [facility] [id number] 0069 Sep, Uncontrolled type 2 diabetes mellitus without complication, without long-term current use of insulin E11.65 [facility] [id number] [address]- 3421 Sep, [facility] [id number] [place] [address] 78752- 6988 Sep, [facility] [id number] [place] [address] 94647- 7880 Sep, Uncontrolled type 2 diabetes mellitus without complication, without long-term current use of insulin E11.65 and Fibromyalgia M79.7 [facility] [id number] [place] [address] 43953- 9731 August, [facility] [id number] [place] [address] 18263- 2151 August, [facility] [id number] [place] [address] 24868- 3149 August, [facility] [id number] [place] [address] 92068- 6609 August, Fibromyalgia M79.7 [facility] [id number] [place] [address] 88564- 1219 Jul, Hypertension, benign I10 [facility] [id number] [place] [address] 48083- 4693 Jul, Fibromyalgia M79.7 [facility] [id number] [place] [address] 21808- 3586 Jul, [facility] [id number] [place] [address] 78160- 8031 Jun, [facility] [id number] [place] [address] 03203- 0281 Jun, Hypertension, benign I10 ; Arthritis M19.90 ; penitentiary current use 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 Z79.891 and Uncontrolled type 2 diabetes mellitus without complication, without long-term current use of insulin E11.65 [facility] [address], [place] [address] Jun, Acute nasopharyngitis J00 and BMI 50.0-59.9, adult Z68.43 [facility] [address], [place] [address]- 4062 Jun, Fibromyalgia M79.7 [facility] [id number] [place] [address] 77158 2546 May, [facility] [id number] [place] [address] 11855 2546 02 May, 2017 Fibromyalgia M79.7 [facility] [id number] [place] [address] 21040 2546 Apr, Fibromyalgia M79.7 [facility] [id number] [place] [address] 72908 2546 Apr, [facility] [id number] [place] [address] 67650- 0816 Apr, [facility] [id number] [place] [address] 88825- 5571 Apr, Arthritis M19.90 [facility] [id number] [place] [address] 88830 2546 Apr, Arthritis M19.90 [facility] [id number] [place] [address] 18259 2545 Apr, Arthritis M19.90 and Controlled type 2 diabetes mellitus without complication, without long-term current use of insulin E11.9 [facility] [address] [place] [address] 73448- 7176 Apr, [facility] [id number] [place] [address] 29437 2546 Apr, Fibromyalgia M79.7 [facility] [address], [place] [address] 2546 Mar, [facility] [id number] [place] [address] 43892 2546 Mar, [facility] [address], [place] [address]- 2236 Mar, Fibromyalgia M79.7 [facility] [id number] [place] [address] 47756- 0447 Feb, [facility] [address] 90708- 0413 Feb, [facility] [id number] [place] [address] 38855- 8528 Feb, [facility] [address] 82379- 5864 Feb, Fibromyalgia M79.7 [facility] [id number] [place] [address] 94654- 9443 Feb, Diabetes type 2, uncontrolled E11.65 and Encounter for immunization Z23 [facility] [id number] [place] [address] 56990- 8629 Jan, [facility] [address] 54932- 3288 Jan, Fibromyalgia M79.7 [facility] [id number] [place] [address] 75285- 4382 Dec, [facility] [id number] [place] [address] 05378- 4958 Dec, Fibromyalgia M79.7 [facility] [id number] [place] [address] 54232- 9685 Nov, [facility] [id number] [place] [address] 85114- 0913 Nov, [facility] [id number] [place] [address] 97974- 5152 Nov, 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 and Polyneuropathy G62.9 [facility] [id number] [place] [address] 12970- 0658 Nov, [facility] [id number] [place] [address] 07030- 7300 Nov, [facility] [id number] [place] [address]- 4289 Oct, Diabetes type 2, uncontrolled E11.65 [facility] [address] [facility] [id number] [place] [address]- 0926 Oct, Diabetes type 2, uncontrolled E11.65 ; Polyneuropathy G62.9 and Pain in right wrist M25.531 [facility] [address] [facility] [id number] [place] [address]- 1736 Oct, [facility] [address] [facility] [id number] [place] [address], [place] [address] 2546 Oct, Pain in left shoulder M25.512 [facility] [address] [facility] [id number] [place] [address], [place] [address]- 0056 Sep, [facility] [id number] [place] [address]- 2197 Sep, Pain in left shoulder M25.512 [facility] [address] [facility] [id number] [place] [address]- 0676 Sep, [facility] [id number] [place] [address] 94515- 1285 August, Pain in left shoulder M25.512 [facility] [address] [place] [address]- 1186 Jul, [facility] [address] [place] [address]- 2836 Jul, [facility] [address] [facility] [id number], [place] [address] 254 Jul, Pain in left shoulder M25.512 [facility] [address] [place] [address]- 4526 Jun, [facility] [address] [facility] [id number] [place] [address] 2546 Jun, [facility] [address], [place] [address]- 3249 Jun, Diabetes type 2, uncontrolled E11.65 ; Fibromyalgia M79.7 and Arthritis M19.90 [facility] [id number] [place] [address] 32128- 1515 Jun, Pain in left shoulder M25.512 [facility] [id number] [place] [address] 19262- 9186 May, [facility] [id number] [place] [address] 46311- 0154 May, Diabetes type 2, controlled E11.9 [facility] [id number] [place] [address] 58814- 4006 May, [facility] [id number] [place] [address] 36758- 3598 May, Uncontrolled type 2 diabetes mellitus without complication, without long-term current use of insulin E11.65 [facility] [id number] [place] [address] 47920- 6296 May, Pain in left shoulder M25.512 [facility] [address] [place] [address] 51464- 4921 May, Diabetes type 2, controlled E11.9 and Uncontrolled type 2 diabetes mellitus without complication, without long-term current use of insulin E11.65 [facility] [address], [place] [address]- 5312 Apr, [facility] [address] [place] [address] 33746- 8031 Apr, [facility] [address], [place] [address]- 4957 Mar, [facility] [id number] [place] [address] 40033- 9652 Mar, [facility] [address], [place] [address]- 2991 Mar, [facility] [id number] [place] [address]- 3529 Feb, [facility] [address] [id number] [place] [id number] Feb, Dental examination Z01.20 [facility] [address] [id number] [place] [address]- 3504 Jan, [facility] [address] [id number] [place] [address], [place] [address]- 7652 Dec, [facility] [address] [id number] [place] [address]- 5240 Dec, [facility] [address] [id number] [place] [address], [place] [address]- 2913 Dec, [facility] [address] [id number] [place] [address]- 3410 Dec, Diabetes type 2, controlled E11.9 [facility] [address] [id number] [place] [address], [place] [address]- 3196 Nov, [facility] [address] [id number] [place] [address]- 7695 Nov, [facility] [address] [place] [address]- 9200 Nov, [facility] [address] [id number] [place] [address]- 1970 Nov, [facility] [address] [id number], [place] [address]- 7696 Oct, [facility] [address] [id number] [place] [address]- 8235 Oct, [facility] [address] [id number] [place] [address]- 3388 Oct, [facility] [address] [id number] [place] [address]- 5367 Sep, [facility] [address] [id number] [place] [address] 87430- 9786 Sep, Diabetes type 2, controlled E11.9 [facility] [address], [place] [address]- 8926 Sep, Diabetes type 2, controlled E11.9 [facility] [address] [facility] [id number], [place] [address]- 4436 August, [facility] [id number] [place] [address] 06687- 9009 August, [facility] [address] [place] [address] 70438- 4991 August, Type 2 diabetes mellitus without complication E11.9 and Pain in left shoulder M25.512 [facility] [address], [place] [address]- 9316 Jul, [facility] [id number] [place] [address] 23689- 8297 Jul, Diabetes type 2, controlled E11.9 and Hypertension, benign I10 [facility] [address], [place] [address]- 4613 Jun, [facility] [address] [place] [address] 85083- 1358 Jun, [facility] [address], [place] [address]- 4308 Jun, Diabetes 250.00 [facility] [address], [place] [address]- 9773 Jun, [facility] [address], [place] [address]- 3754 May, Diabetes type 2, uncontrolled E11.65 [facility] [address], [place] [address]- 3346 May, [facility] [address], [place] [address]- 3839 Apr, Type 2 diabetes mellitus without complication E11.9 [facility] [address], [place] [address]- 2712 Apr, Encounter for immunization Z23 [facility] [id number] [place] [address], [place] [address]- 8371 Apr, [facility] [id number] [address]- 3399 Mar, [facility] [id number] [place] [address] 13068- 8377 Mar, [facility] [address] [place] [address], [place] [address]- 3027 Mar, [facility] [id number] [place] [address] 43465- 6558 Feb, [facility] [id number] [place] [address], [place] [address]- 3269 Jan, [facility] [id number] [place] [address] 42172- 0581 Jan, [facility] [address] [place] [address] 08586- 3832 Jan, [facility] [address] [place] [address] 29904- 1659 Dec, Diabetes 250.00 and COPD (chronic obstructive pulmonary disease) 496 [facility] [address], [place] [address]- 9530 Dec, [facility] [address], [place] [address]- 8652 Dec, [facility] [address], [place] [address]- 9071 Nov, [facility] [address], [place] [address]- 8907 Oct, Diabetes 250.00 [facility] [address], [place] [address]- 9514 Sep, [facility] [address], [place] [address]- 2739 Sep, [facility] [address], [place] [address]- 3538 Sep, [facility] [address], [place] [address]- 7570 Sep, Diabetes 250.00 [facility] [id number] [place] [address] 16420- 7188 Sep, [facility] [id number] [place] [address] 81250- 0733 Sep, [facility] [address] [place] [address] 17297- 3688 August, Hypertension, essential, benign 401.1 ; Coronary atherosclerosis of ak chin coronary artery 414.01 and Diabetic neuropathy associated with type 2 diabetes mellitus 250.60 [facility] [address], [place] [address]- 5745 Jul, [facility] [address], [place] [address]- 9152 Jul, [facility] [address], [place] [address]- 0586 Jul, [facility] [address], [place] [address]- 3087 Jun, [facility] [address], [place] [address]- 4163 Jun, [facility] [address], [place] [address]- 3889 Jun, [facility] [address], [place] [address]- 2367 Jun, [facility] [address]- 8254 Jun, [facility] [address], [place] [address]- 5346 May, 2014 [facility] [place] [facility] [address] [id number] [place] [address]- 3046 May, 2014 [facility] [place] [facility] [address] [id number] [place] [address]- 5436 May, 2014 [facility] [place] [facility] [address] [facility] [id number] [place] [address]- 1996 May, 2014 [facility] [place] [facility] [address] [id number] [place] [address]- 7347 May, 2014 [facility] [place] [facility] [address] [id number] [place] [address]- 6648 May, 2014 [facility] [place] [facility] [address] [facility] [id number] [place] [address]- 3923 May, 2014 [facility] [place] [facility] [id number] [place] [address]- 3312 Apr, [facility] [place] [facility] [address] [facility] [id number] [place] [address]- 6595 Apr, [facility] [place] [facility] [id number] [place] [address]- 7536 Apr, [facility] [place] [facility] [address] [facility] [id number] [place] [address]- 0788 Apr, [facility] [place] [facility] [address] [facility] [id number] [place] [address]- 6817 Mar, [facility] [place] [facility] [address] [facility] [id number] [place] [address]- 6726 Mar, [facility] [place] [facility] [address] [facility] [id number] [place] [address]- 6665 Mar, [facility] [place] [facility] [address] [facility] [id number] [place] [address]- 6356 Mar, [facility] [place] [facility] [address] [facility] [id number] [place] [address]- 9326 Feb, [facility] [place] [facility] [address] [id number] [place] [address]- 5261 Feb, [facility] [place] [facility] [address] [id number] [place] [address]- 9189 Feb, [facility] [place] [facility] [address] [id number] [place] [address]- 0128 Feb, [facility] [place] [facility] [address] [id number] [place] [address]- 5254 Feb, [facility] [place] [facility] [address] [id number] [place] [address] Feb, [facility] [place] [facility] [address] [id number] [place] [address] Feb, [facility] [place] [facility] [address] [id number] [place] [address] Jan, [facility] [place] [facility] [address] [id number] [place] [address] Jan, [facility] [place] [facility] [address] [id number] [place] [address] Dec, [facility] [place] [facility] [address] [id number] [place] [address] Dec, [facility] [place] [facility] [address] [id number], [place] [address] Dec, [facility] [place] [facility] [address] [id number], [place] [address] 10 Dec, 2013 [facility] [place] [facility] [address] [id number] [place] [address] Dec, [facility] [place] [facility] [address] [id number] [place] [address]- [address] 04 Dec, 2013 [facility] [place] [facility] [address] [id number], [place] [address] 03 Dec, 2013 [facility] [place] [facility] [address] [id number][place] [address] Dec, [facility] [place] [facility] [address] [id number] [place] [address] Nov, [facility] [place] [facility] [address] [id number] [place] [address] Nov, [facility] [place] [facility] [address] [id number] [place] [address] Nov, [facility] [place] [facility] [address] [id number] [place] [address] Nov, [facility] [place] [facility] [address] [id number] [place] [address] Oct, [facility] [place] [facility] [address] [id number] [place] [address] Oct, [facility] [place] [facility] [address] [id number] [place] [address] Oct, [facility] [place] [facility] [address] [id number] [place] [address] Oct, [facility] [place] [facility] [address] [id number] [place] [address] Oct, [facility] [place] [facility] [address] [id number] [place] [address] Oct, [facility] [place] [facility] [address] [id number] [place] [address] Oct, [facility] [place] [facility] [address] [id number] [place] [address] Oct, [facility] [place] [facility] [address] [id number] [place] [address] Sep, [facility] [place] [facility] [address] [id number] [place] [address] Sep, [facility] [place] [facility] [address] [id number] [place] [address] August, [facility] [place] [facility] [address] [id number] [place] [address] August, [facility] [place] [facility] [address] [id number] [place] [address] Jul, [facility] [place] [facility] [address] [id number] [place] [address] Jul, [facility] [place] [facility] [address] [id number] [place] [address] Jul, [facility] [place] [facility] [address] [id number] [place] [address] Jul, [facility] [place] [facility] [address] [id number] [place] [address] Jul, [facility] [place] [facility] [address] [id number] [place] [address] Jul, [facility] [place] [facility] [address] [id number] [place] [address] Jul, [facility] [place] [facility] [address] [id number] [place] [address] Jul, [facility] [place] [facility] [address] [id number] [place] [address] Jun, [facility] [place] [facility] [address] [id number] [place] [address] Jun, [facility] [place] [facility] [address] [id number] [place] [address] 4[address] Jun, [facility] [place] [facility] [address] [id number] [place] [address]483 Jun, [facility] [place] [facility] [address] [id number] [place] [address] May, [facility] [place] [facility] [address] [id number] [place] [address] May, [facility] [place] [facility] [address] [id number] [place] [address] Apr, [facility] [place] [facility] [address] [id number] [place] [address] 78[address] Apr, [facility] [place] [facility] [address] [id number] [place] [address] 0414 Mar, [facility] [place] [facility] [address] [id number] [place] [address] 2558 Mar, [facility] [place] [facility] [address] [id number] [place] [address] 8472 Mar, [facility] [place] [facility] [address] [id number] [place] [address] 5747 Mar, [facility] [place] [facility] [address] [id number] [place] [address]- 6[address] Mar, [facility] [place] [facility] [address] [id number] [place] [address] 8004 Mar, [facility] [place] [facility] [address] [id number], [place] [address] 8748 Feb, [facility] [place] [facility] [address] [id number] [place] [address] 3547 Feb, [facility] [place] [facility] [address] [id number] [place] [address] 8077 Feb, [facility] [place] [facility] [address] [id number], [place] [address] Feb, [facility] [place] [facility] [address] [id number], [place] [address] 45[address] Feb, [facility] [place] [facility] [address] [id number], [place] [address] Feb, [facility] [place] [facility] [address] [id number], [place] [address]- 1694 Feb, [facility] [place] [facility] [address] [id number], [place] [address] 8244 Feb, [facility] [place] [facility] [address] [id number] [place] [address]- [address]31 15 Jan, 2013 [facility] [place] [facility] [address] [id number] [place] [address]327 15 Jan, 2013 [facility] [place] [facility] [address] [id number] [place] [address]- 3261 14 Jan, 2013 [facility] [place] [facility] [address] [id number] [place] [address]- 1638 14 Jan, 2013 [facility] [place] [facility] [address] [id number] [place] [address]- 8981 18 Dec, 2012 [facility] [place] [facility] [address] [id number] [place] [address]- 1148 13 Dec, 2012 [facility] [place] [facility] [address] [id number] [place] [address]- [address] 2012 [facility] [place] [facility] [address] [id number] [place] [address]- 3410 23 Nov, 2012 [facility] [place] [facility] [address] [id number] [place] [address]- 3603 Nov, [facility] [place] [facility] [address] [id number] [place] [address]- 5985 16 Oct, 2012 [facility] [place] [facility] [address] [id number] [place] [address]- 9660 05 Oct, 2012 [facility] [place] [facility] [address] [id number] [place] [address]- 7183 Oct, [facility] [place] [facility] [address] [id number] [place] [address] 6207 Sep, [facility] [place] [facility] [address] [id number] [place] [address]- 9494 Sep, [facility] [place] [facility] [address] [id number] [place] [address] 8714 18 Sep, 2012 [facility] [place] [facility] [address] [id number] [place] [address]- 8108 Sep, [facility] [place] [facility] [address] [id number] [place] [address]- 4449 Sep, [facility] [address] [id number] [place] [address]- 1423 Sep, [facility] [address] [id number] [place] [address]- 6[address] August, [facility] [address] [id number] [place] [address]- 8879 August, [facility] [address] [id number] [place] [address]- 8740 August, [facility] [address] [id number] [place] [address] 9332 August, [facility] [address] [id number] [place] [address]- 3446 August, [facility] [address] [id number] [place] [address] 4622 August, [facility] [address] [id number] [place] [address]- 9114 August, [facility] [address] [id number] [place] [address]- 9080 Jul, [facility] [address] [id number] [place] [address]- 1605 Jul, [facility] [address] [id number], [place] [address]- 1635 Jun, [facility] [address] [id number] [place] [address]- 9958 Jun, [facility] [place] [facility] [address] [id number] [place] [address]- 6846 May, [facility] [address] [id number] [place] [address]- 6085 May, [facility] [address] [id number], [place] [address] 70[address] Apr, [facility] [place] [facility] [address] [id number] [place] [address]- 5478 Mar, [facility] [place] [facility] [address] [id number] [place] [address]- 9696 Mar, [facility] [place] [facility] [address] [facility] [id number] [place] [address]- 9082 Mar, [facility] [place] [facility] [address] [id number] [place] [address]- 2362 Mar, [facility] [place] [facility] [address] [facility] [id number] [place] [address]- 0538 Mar, [facility] [place] [facility] [address] [facility] [id number] [place] [address]- 2026 Mar, [facility] [place] [facility] [id number] [place] [address] Feb, [facility] [place] [facility] [address] [facility] [id number] [place] [address]- 9142 Feb, [facility] [place] [facility] [address] [id number] [place] [address] 4592 Feb, [facility] [place] [facility] [address] [facility] [id number] [place] [address]- 3856 Feb, [facility] [place] [facility] [address] [facility] [id number], [place] [address]- 5534 Feb, [facility] [place] [facility] [address] [facility] [id number], [place] [address]- 7415 Feb, [facility] [place] [facility] [address] [facility] [id number] [place] [address]- 1557 Feb, [facility] [place] [facility] [address] [facility] [id number] [place] [address]- 3973 Feb, [facility] [place] [facility] [address] [id number] [place] [address]- 3505 Jan, [facility] [place] [facility] [address] [id number] [place] [address]- 1823 19 Jan, 2012 [facility] [place] [facility] [address] [id number] [place] [address]- 2036 28 Dec, 2011 [facility] [place] [facility] [address] [id number] [place] [address] 2546 19 Dec, 2011 [facility] [place] [facility] [address] [id number] [place] [address] 2546 18 Dec, 2011 [facility] [place] [facility] [address] [id number] [place] [address] 2541 18 Dec, 2011 [facility] [place] [facility] [address] [id number] [place] [address]- 1164 04 Dec, 2011 [facility] [place] [facility] [address] [id number] [place] [address]- 4153 Nov, [facility] [place] [facility] [address] [id number] [place] [address]- 1816 Oct, [facility] [place] [facility] [address] [id number] [place] [address]- 3667 Oct, [facility] [place] [facility] [address] [id number] [place] [address]- 1723 Sep, [facility] [place] [facility] [address] [id number] [place] [address]- 7821 Sep, [facility] [place] [facility] [address] [id number] [place] [address]- 6738 Sep, [facility] [place] [facility] [address] [id number] [place] [address] 2541 Sep, [facility] [place] [facility] [address] [id number] [place] [address]- 2738 Sep, [facility] [place] [facility] [address] [id number] [place] [address]- 4687 Sep, [facility] [place] [facility] [address] [id number] [place] [address]- 8338 Sep, [facility] [address] [id number] [place] [address]- 2097 Sep, [facility] [place] [facility] [address] [id number] [place] [address]- 3418 August, [facility] [place] [facility] [address] [id number] [place] [address]- 1047 August, [facility] [place] [facility] [address] [id number] [place] [address]- 1514 August, [facility] [place] [facility] [address] [id number] [place] [address]- 9677 Jul, [facility] [place] [facility] [address] [id number] [place] [address]- 7566 Jul, [facility] [place] [facility] [address] [id number] [place] [address]- 9738 Jun, [facility] [place] [facility] [address] [id number] [place] [address]- 4744 Jun, [facility] [place] [facility] [address] [id number] [place] [address]- 3937 Jun, [facility] [place] [facility] [address] [id number] [place] [address]- 5181 Jun, [facility] [place] [facility] [address] [id number] [place] [address]- 6433 May, [facility] [place] [facility] [address] [id number] [place] [address]- 6701 May, [facility] [place] [facility] [address] [id number] [place] [address]- 4728 Apr, [facility] [place] [facility] [address] [id number] [place] [address]- 7417 Apr, [facility] [place] [facility] [address] [id number] [place] [address]- 1779 Apr, [facility] [place] [facility] [address] [id number] [place] [address]- 8742 14 Mar, 2011 [facility] [address] [id number] [place] [address]99 09 Mar, 2011 [facility] [place] [facility] [address] [id number] [place] [address] 07 Mar, 2011 [facility] [address] [id number] [place] [address]- 1210 Feb, [facility] [place] [facility] [address] [id number] [place] [address]- 4764 Feb, [facility] [address] [id number] [place] [address] Feb, [facility] [place] [facility] [address] [id number] [place] [address]- 6740 Feb, [facility] [address] [id number] [place] [address]- 2353 Jan, [facility] [address] [id number] [place] [address]- 9806 14 Jan, 2011 [facility] [place] [facility] [address] [id number] [place] [address]- 0328 Jan, [facility] [place] [facility] [address] [facility] [id number] [place] [address]- 4992 16 Dec, 2010 [facility] [place] [facility] [address] [id number] [place] [address]- 6069 Oct, [facility] [place] [facility] [address] [id number] [place] [address]- 6473 Mar, [facility] [place] [facility] [address] [id number] [place] [address]- 1147 Feb, [facility] [place] [facility] [address] [id number] [place] [address]- 0952 Feb, [facility] [place] [facility] [address] [id number] [place] [address] May, [facility] [address] [id number] [address]- 2546 Apr, [facility] [id number], [place] [address]- 2546 Mar, [facility] [id number], [place] [address]- 2546 Jan, [facility] [id number], [place] [address]- 2546 Oct, [facility] [id number], [place] [address]- 2546 Jul, [facility] [id number], [place] [address]- 2546 Mar, [facility] [id number], [place] [address]- 2546 Feb, [facility] [address] [id number] [address]- 2546 Jan, IMMUNIZATIONS No Known Immunizations SOCIAL HISTORY Never Assessed REASON FOR VISIT Controlled Med Refill PLAN OF CARE VITAL SIGNS MEDICATIONS Medication Instructions Dosage Frequency Start Date End Date Duration Status MS Contin 15 mg Orally every 12 hrs 1 tablet 12h August, 28 days Active RESULTS No Results PROCEDURES [...]
--- OUTSIDE RECORDS SUMMARY | 2018-07-05 12:43 | XMS REPORT ---
Author Author KATHYA FISCHER Organization [facility] Address [address] [place] [address] Care Team Providers Care Engineering Assistant Name Role Phone KATHYA FISCHER Unavailable PROBLEMS Type Condition ICD9-CM Code PLV62-MU Code Onset Dates Condition Status SNOMED Code Problem Fibromyalgia M79.7 Active 632886381 Problem Polyneuropathy G62.9 Active 96416334 Problem Arthritis M19.90 Active 5255266 Problem Stress incontinence of urine N39.3 Active 80024838 Problem Obstructive sleep apnea G47.33 Active 88568324 Problem Hypertension, benign I10 Active 49693101 Problem Uncontrolled type 2 diabetes mellitus without complication, without long-term current use of insulin E11.65 Active 961769692 Problem Constipation K59.00 Active 98416545 Problem Type 2 diabetes mellitus with 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 E11.65 Active 468567840 Problem Controlled type 2 diabetes mellitus without complication, without long -term current use of insulin E11.9 Active 288351059 Problem 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 Active 72766968 Problem 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 Active 598957497 Problem Neuropathy G62.9 Active 513979310 ALLERGIES No Information ENCOUNTERS Encounter Location Date Diagnosis [facility] [id number] [place] [address] 01865- 3958 Nov, [facility] [id number] [place] [address] 91016- 5359 Nov, [facility] [id number] [place] [address] 44169- 6446 Nov, Constipation K59.00 [facility] [id number] [place] [address] 08339- 8316 Oct, Diabetes type 2, controlled E11.9 [facility] [id number] [place] [address] 13321- 5260 Oct, Type 2 diabetes mellitus with 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 E11.65 ; 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 and Neuropathy G62.9 [facility] [address], [place] [address] 1877 Oct, [facility] [id number], [place] [address]- 9176 Oct, [facility] [address], [place] [address]- 3012 Oct, [facility] [id number], [place] [address]- 3221 Oct, [facility] [id number] [place] [address] 36132- 3130 Oct, [facility] [id number], [place] [address]- 2330 Oct, [facility] [address], [place] [address]- 9092 Oct, [facility] [id number], [place] [address]- 0684 Sep, [facility] [address], [place] [address]- 6684 Sep, Uncontrolled type 2 diabetes mellitus without complication, without long-term current use of insulin E11.65 [facility] [id number], [place] [address]- 4363 Sep, Hypertension, benign I10 ; Fibromyalgia M79.7 ; Uncontrolled type 2 diabetes mellitus without complication, without long-term current use of insulin E11.65 and Controlled type 2 diabetes mellitus without complication, without long-term current use of insulin E11.9 [facility] [address], [place] [address]- 4075 Sep, [facility] [id number], [place] [address]- 4699 Sep, Uncontrolled type 2 diabetes mellitus without complication, without long-term current use of insulin E11.65 [facility] [address], [place] [address]- 2837 Sep, [facility] [id number] [place] [address] 50128- 1554 Sep, [facility] [id number] [place] [address] 01277- 7830 Sep, Uncontrolled type 2 diabetes mellitus without complication, without long-term current use of insulin E11.65 and Fibromyalgia M79.7 [facility] [id number] [place] [address] 11111- 6337 August, [facility] [id number] [place] [address] 78306- 6262 August, [facility] [id number] [place] [address] 75387- 8707 August, [facility] [id number] [place] [address] 43077- 8759 August, Fibromyalgia M79.7 [facility] [id number] [place] [address] 53177- 9084 Jul, Hypertension, benign I10 [facility] [id number] [place] [address] 68242- 7306 Jul, Fibromyalgia M79.7 [facility] [address] [place] [address] 61702- 0653 Jul, [facility] [id number] [place] [address] 83394- 1771 Jun, [facility] [address] [place] [address] 78824- 5118 Jun, Hypertension, benign I10 ; Arthritis M19.90 ; group home current use 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 Z79.891 and Uncontrolled type 2 diabetes mellitus without complication, without long-term current use of insulin E11.65 [facility] [address] [place] [address] 02099 -9674 Jun, Acute nasopharyngitis J00 and BMI 50.0-59.9, adult Z68.43 [facility] [id number] [place] [address] 37399- 3588 Jun, Fibromyalgia M79.7 [facility] [id number] [place] [address] 73092 2546 14 May, 2017 [facility] [address] [address] 2546 May, Fibromyalgia M79.7 [facility] [id number] [place] [address] 25713- 2318 Apr, Fibromyalgia M79.7 [facility] [id number] [place] [address] 58091- 4627 Apr, [facility] [id number] [place] [address] 12479- 6350 Apr, [facility] [id number] [place] [address] 45336- 7988 Apr, Arthritis M19.90 [facility] [id number] [place] [address] 38293- 9668 Apr, Arthritis M19.90 [facility] [id number] [place] [address] 46386- 3592 Apr, Arthritis M19.90 and Controlled type 2 diabetes mellitus without complication, without long-term current use of insulin E11.9 [facility] [id number] [place] [address] 61829- 6987 Apr, [facility] [id number] [place] [address] 52167 2546 Apr, Fibromyalgia M79.7 [facility] [id number] [place] [address] 30928- 2855 Mar, [facility] [id number] [place] [address] 67552- 5443 Mar, [facility] [id number] [place] [address] 37500- 3508 Mar, Fibromyalgia M79.7 [facility] [address] 91724- 7031 Feb, [facility] [id number] [place] [address] 88226- 2207 Feb, [facility] [address] 21139- 1080 Feb, [facility] [address] 86022- 7337 Feb, Fibromyalgia M79.7 [facility] [address] 70142- 9950 Feb, Diabetes type 2, uncontrolled E11.65 and Encounter for immunization Z23 [facility] [address] 60314- 6378 Jan, [facility] [id number] [place] [address] 98114- 6387 Jan, Fibromyalgia M79.7 [facility] [id number] [place] [address] 77193- 7750 Dec, [facility] [id number] [place] [address] 88783- 2140 Dec, Fibromyalgia M79.7 [facility] [id number] [place] [address] 03760- 9612 Nov, [facility] [id number] [place] [address] 79363- 6533 Nov, [facility] [address] 03150- 1134 Nov, 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 and Polyneuropathy G62.9 [facility] [id number] [place] [address] 08923- 7847 Nov, [facility] [id number], [place] [address]- 9086 Nov, [facility] [address] [facility] [id number], [place] [address]- 4856 Oct, Diabetes type 2, uncontrolled E11.65 [facility] [address] [facility] [id number], [place] [address]- 3406 Oct, Diabetes type 2, uncontrolled E11.65 ; Polyneuropathy G62.9 and Pain in right wrist M25.531 [facility] [address] [facility] [id number] [place] [address] 2546 Oct, [facility] [address] [facility] [id number] [place] [address], [place] [address]- 8066 Oct, Pain in left shoulder M25.512 [facility] [id number] [address]- 5256 Sep, [facility] [id number] [place] [address] 30160- 5071 Sep, Pain in left shoulder M25.512 [facility] [id number], [place] [address]- 9876 Sep, [facility] [id number], [place] [address]- 7845 August, Pain in left shoulder M25.512 [facility] [id number], [place] [address]- 8506 Jul, [facility] [address] [facility] [id number], [place] [address] 2546 Jul, [facility] [id number], [place] [address]- 3197 Jul, Pain in left shoulder M25.512 [facility] [address] [facility] [id number], [place] [address] 2546 Jun, [facility] [id number], [place] [address]- 8002 17 Jun, 2016 [facility] [id number], [place] [address]- 2549 17 Jun, 2016 Diabetes type 2, uncontrolled E11.65 ; Fibromyalgia M79.7 and Arthritis M19.90 [facility] [id number], [place] [address] 2546 14 Jun, 2016 Pain in left shoulder M25.512 [facility] [id number], [place] [address]- 7296 May, [facility] [id number] [place] [address] 27790- 6064 May, Diabetes type 2, controlled E11.9 [facility] [id number] [place] [address] 61094- 1316 17 May, 2016 [facility] [id number] [place] [address] 28724- 9502 May, Uncontrolled type 2 diabetes mellitus without complication, without long-term current use of insulin E11.65 [facility] [id number], [place] [address]- 6364 May, Pain in left shoulder M25.512 [facility] [id number], [place] [address]- 4611 May, Diabetes type 2, controlled E11.9 and Uncontrolled type 2 diabetes mellitus without complication, without long-term current use of insulin E11.65 [facility] [id number], [place] [address]- 8158 Apr, [facility] [id number], [place] [address]- 7446 Apr, [facility] [id number] [place] [address] 136292- 2576 Mar, [facility] [id number], [place] [address]- 4532 Mar, [facility] [id number] [address]- 2315 Mar, [facility] [address] [id number] [place] [address]- 5027 Feb, [facility] [address] [id number] [place] [id number] Feb, Dental examination Z01.20 [facility] [address] [id number] [place] [address]- 5718 Jan, [facility] [address] [id number] [place] [address]- 2148 Dec, [facility] [address] [id number] [place] [address]- 9776 Dec, [facility] [address] [id number] [place] [address]- 2729 Dec, [facility] [address] [id number] [place] [address], [place] [address]- 6781 Dec, Diabetes type 2, controlled E11.9 [facility] [address] [id number] [place] [address]- 9070 Nov, [facility] [address] [id number] [place] [address]- 0224 Nov, [facility] [address] [id number] [place] [address]- 1049 Nov, [facility] [address] [id number], [place] [address]- 1549 Nov, [facility] [address] [id number] [place] [address]- 0811 Oct, [facility] [address] [id number] [place] [address]- 7482 Oct, [facility] [address] [id number] [place] [address]- 0494 Oct, [facility] [id number] [place] [address] 25628- 1504 Sep, [facility] [id number], [place] [address]- 9313 Sep, Diabetes type 2, controlled E11.9 [facility] [id number]- 0281 Sep, Diabetes type 2, controlled E11.9 [facility] [address] [place] [address] 42240- 2782 August, [facility] [id number] [place] [address] 32164- 2505 August, [facility] [id number] [place] [address] 90466- 6636 August, Type 2 diabetes mellitus without complication E11.9 and Pain in left shoulder M25.512 [facility] [id number], [place] [address]- 7519 Jul, [facility] [id number] [place] [address] 37523- 9673 Jul, Diabetes type 2, controlled E11.9 and Hypertension, benign I10 [facility] [id number], [place] [address]- 5280 Jun, [facility] [id number], [place] [address]- 8288 Jun, [facility] [id number], [place] [address]- 3319 Jun, Diabetes 250.00 [facility] [id number], [place] [address]- 9155 Jun, [facility] [id number], [place] [address]- 6642 May, Diabetes type 2, uncontrolled E11.65 [facility] [address] [address]- 6634 May, [facility] [id number], [place] [address]- 3262 Apr, Type 2 diabetes mellitus without complication E11.9 [facility] [id number] [place] [address] 64557- 8719 Apr, Encounter for immunization Z23 [facility] [id number] [place] [address] 20880- 8272 Apr, [facility] [id number] [place] [address] 33395- 0036 Mar, [facility] [id number] [place] [address] 89116- 8940 Mar, [facility] [id number] [place] [address] 76714- 0361 Mar, [facility] [id number] [place] [address] 92402- 4954 Feb, [facility] [id number] [place] [address] 90518- 0655 Jan, [facility] [id number] [place] [address] 54295- 7211 Jan, [facility] [id number] [place] [address] 37374- 7813 Jan, [facility] [id number], [place] [address]- 3973 Dec, Diabetes 250.00 and COPD (chronic obstructive pulmonary disease) 496 [facility] [id number], [place] [address]- 7516 Dec, [facility] [id number] [place] [address] 69227- 1313 Dec, [facility] [id number], [place] [address]- 7454 Nov, [facility] [id number], [place] [address]- 3078 Oct, Diabetes 250.00 [facility] [address] [facility] [id number], [place] [address]- 3539 Sep, [facility] [id number], [place] [address]- 3415 Sep, [facility] [id number], [place] [address]- 9499 Sep, [facility] [id number], [place] [address]- 6628 Sep, Diabetes 250.00 [facility] [id number], [place] [address]- 8156 Sep, [facility] [id number] [place] [address] 60460- 4156 Sep, [facility] [id number], [place] [address]- 3421 August, Hypertension, essential, benign 401.1 ; Coronary atherosclerosis of [place] coronary artery 414.01 and Diabetic neuropathy associated with type 2 diabetes mellitus 250.60 [facility] [id number], [place] [address]- 6324 Jul, [facility] [id number], [place] [address]- 2186 Jul, [facility] [id number], [place] [address]- 5240 Jul, [facility] [id number], [place] [address]- 6804 Jun, [facility] [id number], [place] [address]- 3976 Jun, [facility] [id number], [place] [address]- 9186 Jun, [facility] [id number] 3870 Jun, [facility] [id number], [place] [address]- 5692 Jun, [facility] [place] [facility] [address] [id number] [place] [address]- 6668 May, 2014 [facility] [place] [facility] [address] [facility] [id number] [place] [address]- 9956 May, 2014 [facility] [place] [facility] [address] [facility] [id number] [place] [address]- 9036 May, 2014 [facility] [place] [facility] [address] [facility] [id number] [place] [address]- 8757 May, 2014 [facility] [place] [facility] [address] [facility] [id number] [place] [address]- 6703 May, 2014 [facility] [place] [facility] [address] [facility] [id number] [place] [address]- 3421 May, 2014 [facility] [place] [facility] [id number] [address]- 7354 May, [facility] [place] [facility] [address] [facility] [id number] [place] [address]- 9556 Apr, [facility] [place] [facility] [address] [id number] [address] Apr, [facility] [place] [facility] [address] [facility] [id number] [place] [address] Apr, [facility] [place] [facility] [address] [facility] [id number] [place] [address] Apr, [facility] [place] [facility] [address] [facility] [id number] [place] [address] Mar, [facility] [place] [facility] [address] [facility] [id number] [place] [address] Mar, [facility] [place] [facility] [address] [facility] [id number] [place] [address] Mar, [facility] [place] [facility] [address] [facility] [id number] [place] [address] Mar, [facility] [place] [facility] [address] [id number] [place] [address] Feb, [facility] [place] [facility] [address] [id number] [place] [address] Feb, [facility] [place] [facility] [address] [id number] [place] [address] Feb, [facility] [place] [facility] [address] [id number] [place] [address] Feb, [facility] [place] [facility] [address] [id number] [place] [address] Feb, [facility] [place] [facility] [address] [id number] [place] [address] Feb, [facility] [place] [facility] [address] [id number] [place] [address] Feb, [facility] [place] [facility] [address] [id number] [place] [address]- [address] Jan, [facility] [place] [facility] [address] [id number] [place] [address] Jan, [facility] [place] [facility] [address] [id number], [place] [address] Dec, [facility] [place] [facility] [address] [id number], [place] [address] Dec, [facility] [place] [facility] [address] [id number], [place] [address] 10 Dec, 2013 [facility] [place] [facility] [address] [id number] [place] [address]- [address] 10 Dec, 2013 [facility] [place] [facility] [address] [id number] [place] [address]- [address] 04 Dec, 2013 [facility] [place] [facility] [address] [id number], [place] [address] 04 Dec, 2013 [facility] [place] [facility] [address] [id number], [place] [address] Dec, [facility] [place] [facility] [address] [id number] [place] [address] Dec, [facility] [place] [facility] [address] [id number] [place] [address] Nov, [facility] [place] [facility] [address] [id number] [place] [address] Nov, [facility] [place] [facility] [address] [id number] [place] [address] Nov, [facility] [place] [facility] [address] [id number] [place] [address] Nov, [facility] [place] [facility] [address] [id number] [place] [address] Oct, [facility] [place] [facility] [address] [id number] [place] [address] Oct, [facility] [place] [facility] [address] [id number] [place] [address] Oct, [facility] [place] [facility] [address] [id number] [place] [address] Oct, [facility] [place] [facility] [address] [id number] [place] [address] Oct, [facility] [place] [facility] [address] [id number] [place] [address] Oct, [facility] [place] [facility] [address] [id number] [place] [address] Oct, [facility] [place] [facility] [address] [id number] [place] [address] Oct, [facility] [place] [facility] [address] [id number] [place] [address] Sep, [facility] [place] [facility] [address] [id number] [place] [address]- [address] Sep, [facility] [place] [facility] [address] [id number] [place] [address] August, [facility] [place] [facility] [address] [id number] [place] [address] August, [facility] [place] [facility] [address] [id number] [place] [address] Jul, [facility] [place] [facility] [address] [id number] [place] [address] Jul, [facility] [place] [facility] [address] [id number] [place] [address]- 6279 Jul, [facility] [place] [facility] [address] [id number] [place] [address] Jul, [facility] [place] [facility] [address] [id number] [place] [address] Jul, [facility] [place] [facility] [address] [id number] [place] [address] Jul, [facility] [place] [facility] [address] [id number] [place] [address] Jul, [facility] [place] [facility] [address] [id number] [place] [address] 9416 Jul, [facility] [place] [facility] [address] [id number] [place] [address] 9[address] Jun, [facility] [place] [facility] [address] [id number] [place] [address] Jun, [facility] [place] [facility] [address] [id number] [place] [address] 8634 Jun, [facility] [place] [facility] [address] [id number] [place] [address] 4[address] Jun, [facility] [place] [facility] [address] [id number] [place] [address] 18 May, 2013 [facility] [place] [facility] [address] [id number] [place] [address] May, [facility] [place] [facility] [address] [id number] [place] [address] Apr, [facility] [place] [facility] [address] [id number] [place] [address] 4160 Apr, [facility] [place] [facility] [address] [facility] [id number] [place] [address] 5107 Mar, [facility] [place] [facility] [address] [id number] [place] [address]- 6910 Mar, [facility] [place] [facility] [address] [id number] [place] [address]- 4717 Mar, [facility] [place] [facility] [address] [id number] [place] [address]- 2128 Mar, [facility] [place] [facility] [address] [id number] [place] [address]- 0073 Mar, [facility] [place] [facility] [address] [id number] [place] [address]- 5461 Mar, [facility] [place] [facility] [address] [id number] [place] [address]- 9524 Feb, [facility] [place] [facility] [address] [id number] [place] [address]- 7647 Feb, [facility] [place] [facility] [address] [id number], [place] [address] Feb, [facility] [place] [facility] [address] [id number], [place] [address]- 96[address] Feb, [facility] [place] [facility] [address] [id number] [place] [address]- 6508 Feb, [facility] [place] [facility] [address] [id number], [place] [address] Feb, [facility] [place] [facility] [address] [id number], [place] [address]- 15[address] Feb, [facility] [place] [facility] [address] [id number] [place] [address]- 9951 12 Feb, 2013 [facility] [place] [facility] [address] [id number] [place] [address]- 1018 15 Jan, 2013 [facility] [place] [facility] [address] [id number] [place] [address] 15 Jan, 2013 [facility] [place] [facility] [address] [id number] [place] [address] 3130 14 Jan, 2013 [facility] [place] [facility] [address] [id number] [place] [address]- 8250 14 Jan, 2013 [facility] [place] [facility] [address] [id number] [place] [address] 18 Dec, 2012 [facility] [place] [facility] [address] [id number] [place] [address]- 4224 13 Dec, 2012 [facility] [place] [facility] [address] [id number] [place] [address]- [address] 2012 [facility] [place] [facility] [address] [id number] [place] [address]- 9916 23 Nov, 2012 [facility] [place] [facility] [address] [id number] [place] [address] 0201 Nov, [facility] [place] [facility] [address] [id number] [place] [address]- 9105 16 Oct, 2012 [facility] [place] [facility] [address] [id number] [place] [address] 7993 Oct, [facility] [place] [facility] [address] [id number] [place] [address] 0359 Oct, [facility] [place] [facility] [address] [id number] [place] [address]- [address]358 Sep, [facility] [place] [facility] [address] [id number] [place] [address] 6043 Sep, [facility] [place] [facility] [address] [id number] [place] [address]- 7991 Sep, [facility] [place] [facility] [address] [id number] [place] [address]- 3528 Sep, [facility] [address] [id number] [place] [address] 1319 Sep, [facility] [address] [id number] [place] [address]- 7064 Sep, [facility] [address] [id number] [place] [address] 1559 August, [facility] [address] [id number] [place] [address] 3389 August, [facility] [address] [id number] [place] [address]- 0084 August, [facility] [address] [id number] [place] [address] 4106 August, [facility] [address] [id number] [place] [address] 7326 August, [facility] [address] [id number] [place] [address] 6759 August, [facility] [address] [id number] [place] [address]- 8868 August, [facility] [address] [id number] [place] [address]- 9705 Jul, [facility] [address] [id number] [place] [address]- 6074 Jul, [facility] [address] [id number] [place] [address] 5515 Jun, [facility] [place] [facility] [address] [id number] [place] [address] 4064 Jun, [facility] [address] [id number] [place] [address] 4608 May, [facility] [address] [id number], [place] [address] 1348 May, [facility] [place] [facility] [address] [id number] [place] [address] 3891 Apr, [facility] [place] [facility] [address] [id number] [place] [address]- 9929 Mar, [facility] [place] [facility] [address] [facility] [id number] [place] [address]- 1762 Mar, [facility] [place] [facility] [address] [id number] [place] [address]- 9311 Mar, [facility] [place] [facility] [address] [id number] [place] [address]- 2734 Mar, [facility] [place] [facility] [address] [id number] [place] [address]- 3929 Mar, [facility] [place] [facility] [address] [facility] [id number] [place] [address]- 4641 Mar, [facility] [place] [facility] [address] [facility] [id number] [place] [address]- 9626 Feb, [facility] [place] [facility] [address] [facility] [id number] [place] [address]- 5067 Feb, [facility] [place] [facility] [address] [facility] [id number] [place] [address]- 6039 Feb, [facility] [place] [facility] [address] [facility] [id number], [place] [address]- 0389 Feb, [facility] [place] [facility] [address] [facility] [id number], [place] [address]- 3961 Feb, [facility] [place] [facility] [address] [id number] [place] [address]- 4547 Feb, [facility] [place] [facility] [address] [facility] [id number] [place] [address]- 9948 Feb, [facility] [place] [facility] [address] [facility] [id number] [place] [address]- 3449 Feb, [facility] [place] [facility] [address] [id number] [place] [address]- 6540 Jan, [facility] [place] [facility] [address] [id number] [place] [address]- 2650 Jan, [facility] [place] [facility] [address] [id number] [place] [address]- 9586 28 Dec, 2011 [facility] [place] [facility] [address] [id number] [place] [address]- 7686 19 Dec, 2011 [facility] [place] [facility] [address] [id number] [place] [address] 2545 18 Dec, 2011 [facility] [place] [facility] [address] [id number] [place] [address]- 5890 Dec, [facility] [place] [facility] [address] [id number] [place] [address]- 4552 04 Dec, 2011 [facility] [place] [facility] [address] [id number] [place] [address]- 3345 Nov, [facility] [place] [facility] [address] [id number] [place] [address]- 3373 Oct, [facility] [place] [facility] [address] [id number] [place] [address]- 3277 Oct, [facility] [place] [facility] [address] [id number] [place] [address]- 9889 Sep, [facility] [place] [facility] [address] [id number] [place] [address]- 5571 Sep, [facility] [place] [facility] [address] [id number] [place] [address]- 2305 Sep, [facility] [place] [facility] [address] [id number] [place] [address]- 1144 Sep, [facility] [place] [facility] [address] [id number] [place] [address]- 7210 Sep, [facility] [place] [facility] [address] [id number] [place] [address]- 1703 Sep, [facility] [place] [facility] [address] [id number] [place] [address]- 0382 Sep, [facility] [place] [facility] [address] [id number] [place] [address]- 4940 Sep, [facility] [place] [facility] [address] [id number] [place] [address]- 2101 August, [facility] [place] [facility] [address] [id number] [place] [address]- 6471 August, [facility] [place] [facility] [address] [id number] [place] [address]- 4468 August, [facility] [place] [facility] [address] [id number] [place] [address]- 4843 Jul, [facility] [place] [facility] [address] [id number] [place] [address]- 9694 Jul, [facility] [place] [facility] [address] [id number] [place] [address]- 0604 Jun, [facility] [place] [facility] [address] [id number] [place] [address]- 8659 Jun, [facility] [place] [facility] [address] [id number] [place] [address]- 4324 Jun, [facility] [place] [facility] [address] [id number] [place] [address]- 1578 Jun, [facility] [place] [facility] [address] [id number], [place] [address]- 7094 May, [facility] [place] [facility] [address] [id number] [place] [address]- 0185 May, [facility] [place] [facility] [address] [id number] [place] [address]- 9046 Apr, [facility] [place] [facility] [address] [id number] [place] [address]- 0532 Apr, [facility] [place] [facility] [address] [id number] [place] [address]23 04 Apr, 2011 [facility] [address] [id number] [place] [address]- 5904 14 Mar, 2011 [facility] [place] [facility] [address] [id number] [place] [address]- 4330 Mar, [facility] [address] [id number] [place] [address]- 1531 Mar, [facility] [place] [facility] [address] [id number] [place] [address]- 7592 Feb, [facility] [place] [facility] [address] [id number] [place] [address]- 2350 Feb, [facility] [place] [facility] [address] [id number] [place] [address]- 6972 Feb, [facility] [address] [id number] [place] [address]- 5966 Feb, [facility] [place] [facility] [address] [id number] [place] [address]- 6943 Jan, [facility] [place] [facility] [address] [id number] [place] [address]- 9347 Jan, [facility] [place] [facility] [address] [id number] [place] [address]- 1299 Jan, [facility] [place] [facility] [address] [id number] [place] [address]- 1231 16 Dec, 2010 [facility] [place] [facility] [address] [id number] [place] [address]- 2513 Oct, [facility] [place] [facility] [address] [id number] [place] [address]- 0299 24 Mar, 2010 [facility] [place] [facility] [address] [id number] [place] [address]- 5143 Feb, [facility] [place] [facility] [address] [id number] [place] [address]- 1730 Feb, [facility] [address] [id number], [place] [address] 1576 May, [facility] [id number], [place] [address] 1406 Apr, [facility] [id number], [place] [address]- 6570 Mar, [facility] [id number], [place] [address]- 7381 Jan, [facility] [id number], [place] [address]- 3216 Oct, [facility] [id number], [place] [address]- 2596 Jul, [facility] [id number], [place] [address] 2546 Mar, [facility] [id number], [place] [address]- 8867 Feb, [facility] [address] [id number], [place] [address]- 6261 Jan, IMMUNIZATIONS No Known Immunizations SOCIAL HISTORY Never Assessed REASON FOR VISIT Medication question/ PLAN OF CARE VITAL SIGNS MEDICATIONS Unknown [...]
--- OUTSIDE RECORDS SUMMARY | 2018-07-05 12:44 | XMS REPORT ---
Author Author KATHYA FISCHER Organization [facility] Address [address] [place] [address] Care Team Providers Care Ingot Car Operator Name Role Phone KATHYA FISCHER Unavailable PROBLEMS Type Condition ICD9-CM Code ODY01-AD Code Onset Dates Condition Status SNOMED Code Problem Uncontrolled type 2 diabetes mellitus without complication, without long-term current use of insulin E11.65 Active 166236240 Problem Fibromyalgia M79.7 Active 351920267 Problem Arthritis M19.90 Active 5632251 Problem Stress incontinence of urine N39.3 Active 52872839 Problem Obstructive sleep apnea G47.33 Active 00197433 Problem Hypertension, benign I10 Active 12086273 Problem 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.4 Active 829160861 Problem Neuropathy G62.9 Active 345065342 Problem 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 Active 60170791 Problem Polyneuropathy G62.9 Active 52133603 Problem Type 2 diabetes mellitus with 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 E11.65 Active 858731275 Problem Controlled type 2 diabetes mellitus without complication, without long -term current use of insulin E11.9 Active 054561899 ALLERGIES No Information ENCOUNTERS Encounter Location Date Diagnosis [place] [id number] [place] [address] 21573- 3185 Nov, [facility] [id number] [place] [address] 46460- 0293 Oct, Diabetes type 2, controlled E11.9 [facility] [id number] [place] [address] 16115- 6527 Oct, Type 2 diabetes mellitus with 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 E11.65 ; detention current use of insulin Z79.4 and Neuropathy G62.9 [facility] [id number] [place] [address] 96707- 6427 Oct, [facility] [id number] [place] [address] 69427- 6230 Oct, [facility] [address], [place] [address]- 6872 Oct, [facility] [address] 9810 Oct, [facility] [address], [place] [address]- 3298 Oct, [facility] [address], [place] [address]- 2853 Oct, [facility] [id number] 8548 Oct, [facility] [address] 7144 Sep, [facility] [address], [place] [address]- 7880 Sep, Uncontrolled type 2 diabetes mellitus without complication, without long-term current use of insulin E11.65 [facility] [address], [place] [address]- 4257 Sep, Hypertension, benign I10 ; Fibromyalgia M79.7 ; Controlled type 2 diabetes mellitus without complication, without long-term current use of insulin E11.9 and Uncontrolled type 2 diabetes mellitus without complication, without long-term current use of insulin E11.65 [facility] [address], [place] [address]- 6571 Sep, [facility] [address], [place] [address]- 2099 Sep, Uncontrolled type 2 diabetes mellitus without complication, without long-term current use of insulin E11.65 [facility] [address] 9826 Sep, [facility] [id number], [place] [address]- 5092 Sep, [facility] [id number] [place] [address] 44307- 7772 Sep, Uncontrolled type 2 diabetes mellitus without complication, without long-term current use of insulin E11.65 and Fibromyalgia M79.7 [facility] [id number] [place] [address] 31251- 1414 August, [facility] [id number] [place] [address] 05326- 3314 August, [facility] [id number] [place] [address] 57732- 9389 August, [facility] [address] 86720- 3455 August, Fibromyalgia M79.7 [facility] [id number] [place] [address] 27718- 3322 Jul, Hypertension, benign I10 [facility] [address] 21627- 5295 Jul, Fibromyalgia M79.7 [facility] [id number] [place] [address] 57133- 7062 Jul, [facility] [id number] [place] [address] 71052- 5634 Jun, [facility] [id number] [place] [address] 48567- 8485 Jun, Hypertension, benign I10 ; Arthritis M19.90 ; 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 use 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 Z79.891 and Uncontrolled type 2 diabetes mellitus without complication, without long-term current use of insulin E11.65 [facility] [id number] [place] [address] 08010 -5238 Jun, Acute nasopharyngitis J00 and BMI 50.0-59.9, adult Z68.43 [facility] [id number] [place] [address] 57212- 1679 Jun, Fibromyalgia M79.7 [facility] [id number] [place] [address] 30788- 5406 May, [facility] [address], [place] [address] 2546 May, Fibromyalgia M79.7 [facility] [address] [place] [address] 28043 2546 Apr, Fibromyalgia M79.7 [facility] [id number] [place] [address] 45291 2546 Apr, [facility] [id number] [place] [address] 56534 2543 Apr, [facility] [id number] [place] [address] 29044- 6296 Apr, Arthritis M19.90 [facility] [id number] [place] [address] 42313- 2795 Apr, Arthritis M19.90 [facility] [id number] [place] [address] 30069- 8156 Apr, Arthritis M19.90 and Controlled type 2 diabetes mellitus without complication, without long-term current use of insulin E11.9 [facility] [address] [place] [address] 42382- 0395 Apr, [facility] [address] [place] [address] 98230- 7560 Apr, Fibromyalgia M79.7 [facility] [address] [place] [address] 26985- 4456 Mar, [facility] [address], [place] [address] 2546 Mar, [facility] [id number] [place] [address] 64491 2546 Mar, Fibromyalgia M79.7 [facility] [address], [place] [address]- 1866 Feb, [facility] [id number] [place] [address] 56258- 7429 Feb, [facility] [id number] [place] [address] 29491- 6855 Feb, [facility] [id number] [place] [address] 54772- 3028 Feb, Fibromyalgia M79.7 [facility] [address] 34263- 1115 Feb, Diabetes type 2, uncontrolled E11.65 and Encounter for immunization Z23 [facility] [address] 45032- 8407 Jan, [facility] [address] 67672- 1073 Jan, Fibromyalgia M79.7 [facility] [address] 64308- 2828 Dec, [facility] [address] 95312- 5118 Dec, Fibromyalgia M79.7 [facility] [id number] [place] [address] 18888- 4284 Nov, [facility] [id number] [place] [address] 44259- 3538 Nov, [facility] [id number] [place] [address] 95063- 4365 Nov, 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 and Polyneuropathy G62.9 [facility] [id number] [place] [address] 13754- 6869 Nov, [facility] [address] 72707- 0201 Nov, [facility] [id number] [place] [address] 92414- 7795 Oct, Diabetes type 2, uncontrolled E11.65 [facility] [address] [place] [address]- 6333 Oct, Diabetes type 2, uncontrolled E11.65 ; Polyneuropathy G62.9 and Pain in right wrist M25.531 [facility] [id number] [place] [address] 19437- 9513 Oct, [facility] [id number] [place] [address] 48388- 2764 Oct, Pain in left shoulder M25.512 [facility] [id number] [place] [address] 60023- 2635 Sep, [facility] [id number] [place] [address] 88750- 8093 Sep, Pain in left shoulder M25.512 [facility] [id number] [place] [address] 36896- 6222 Sep, [facility] [id number] [place] [address] 13342- 2134 August, Pain in left shoulder M25.512 [facility] [id number] [place] [address] 72247- 1012 Jul, [facility] [id number] [place] [address] 26415- 3088 Jul, [facility] [address] [address]- 4944 Jul, Pain in left shoulder M25.512 [facility] [address] [address]- 2124 Jun, [facility] [id number] [place] [address] 16062- 0134 Jun, [facility] [id number] [place] [address] 18845- 6416 Jun, Diabetes type 2, uncontrolled E11.65 ; Fibromyalgia M79.7 and Arthritis M19.90 [facility] [id number] [place] [address] 75523- 4982 Jun, Pain in left shoulder M25.512 [facility] [address] [place] [address] 48580- 1210 May, [facility] [id number] [place] [address] 897545- 8902 May, Diabetes type 2, controlled E11.9 [facility] [id number] [place] [address] 61027- 0256 17 May, 2016 [facility] [id number] [place] [address] 218804- 2588 May, Uncontrolled type 2 diabetes mellitus without complication, without long-term current use of insulin E11.65 [facility] [id number] [place] [address] 87621- 5718 15 May, 2016 Pain in left shoulder M25.512 [facility] [id number] [place] [address] 95222- 8263 03 May, 2016 Diabetes type 2, controlled E11.9 and Uncontrolled type 2 diabetes mellitus without complication, without long-term current use of insulin E11.65 [facility] [address] [place] [address] 11723- 4189 Apr, [facility] [id number] [place] [address] 79453- 9986 Apr, [facility] [address] [place] [address] 18044- 4689 Mar, [facility] [address] [place] [address] 06991- 4502 Mar, [facility] [id number] [place] [address] 203923- 1876 Mar, [facility] [address] 1603 Feb, [facility] [address] [place] [address] [id number] Feb, Dental examination Z01.20 [facility] [address] [id number] [place] [address]- 2607 Jan, [facility] [address] [id number] [place] [address]- 6766 Dec, [facility] [address] [facility] [id number] [place] [address]- 8716 Dec, [facility] [address] [id number] [place] [address]- 6984 Dec, [facility] [address] [id number] [place] [address]- 6789 Dec, Diabetes type 2, controlled E11.9 [facility] [address] [facility] [id number] [place] [address]- 3214 Nov, [facility] [address] [facility] [id number] [place] [address]- 9297 Nov, [facility] [address] [facility] [id number] [place] [address]- 0253 Nov, [facility] [address] [facility] [id number] [place] [address]- 9569 Nov, [facility] [address] [facility] [id number], [place] [address]- 7226 Oct, [facility] [address] [facility] [id number], [place] [address]- 2640 Oct, [facility] [address] [facility] [id number], [place] [address]- 254 Oct, [facility] [address] [facility] [id number], [place] [address]- 8543 Sep, [facility] [address] [facility] [id number], [place] [address]- 3212 Sep, Diabetes type 2, controlled E11.9 [facility] [address] [facility] [id number], [place] [address]- 9608 Sep, Diabetes type 2, controlled E11.9 [facility] [address] [address]- 1087 August, [facility] [id number] [place] [address] 82018- 0626 August, [facility] [id number] [place] [address] 47966- 6909 August, Type 2 diabetes mellitus without complication E11.9 and Pain in left shoulder M25.512 [facility] [id number] [place] [address] 85559- 2106 Jul, [facility] [id number] [place] [address] 48908- 0504 Jul, Diabetes type 2, controlled E11.9 and Hypertension, benign I10 [facility] [id number] [place] [address] 49217- 5554 Jun, [facility] [id number] [place] [address] 97079- 4714 Jun, [facility] [id number] [place] [address] 91764- 4914 Jun, Diabetes 250.00 [facility] [id number] [place] [address] 25070- 6679 Jun, [facility] [id number] [place] [address] 67243- 4449 May, Diabetes type 2, uncontrolled E11.65 [facility] [address] [place] [address] 32384- 3932 May, [facility] [id number] [place] [address] 86861- 1262 Apr, Type 2 diabetes mellitus without complication E11.9 [facility] [address], [place] [address]- 4535 Apr, Encounter for immunization Z23 [facility] [address] [place] [address]- 3284 Apr, [facility] [address] [id number] [place] 4097 Mar, [facility] [address] [id number] [place] [address]- 8532 Mar, [facility] [address] [facility] [id number] [place]- 3555 Mar, [facility] [address] [facility] [id number] [place] [address]- 8612 Feb, [facility] [id number] [place] [address], [place] [address]- 1680 Jan, [facility] [address] [place] [address]- 1410 Jan, [facility] [address] [place] [address], [place] [address]- 0254 Jan, [facility] [address] [facility] [id number], [place] [address]- 5779 Dec, Diabetes 250.00 and COPD (chronic obstructive pulmonary disease) 496 [facility] [address], [place] [address]- 7629 Dec, [facility] [address], [place] [address]- 6163 Dec, [facility] [id number], [place] [address]- 0372 Nov, [facility] [address] [facility] [id number], [place] [address]- 1927 Oct, Diabetes 250.00 [facility] [address] [facility] [id number][place]- 2198 Sep, [facility] [id number] [place] [address]- 2878 Sep, [facility] [address], [place] [address]- 9754 Sep, [facility] [address], [place] [address]- 9023 Sep, Diabetes 250.00 [facility] [address], [place] [address]- 2931 Sep, [facility] [id number] [place] [address] 09943- 6361 Sep, [facility] [id number] [place] [address] 35683- 1276 August, Hypertension, essential, benign 401.1 ; Coronary atherosclerosis of [place] coronary artery 414.01 and Diabetic neuropathy associated with type 2 diabetes mellitus 250.60 [facility] [address], [place] [address]- 7580 29 Jul, 2014 [facility] [id number] [place] [address] 01899- 6321 Jul, [facility] [address], [place] [address]- 1263 Jul, [facility] [id number]- 4653 Jun, [facility] [address], [place] [address]- 5870 Jun, [facility] [address], [place] [address]- 6593 Jun, [facility] [address], [place] [address]- 2861 Jun, [facility] [address], [place] [address]- 5892 Jun, [facility] [address]- 0644 May, [facility] [address], [place] [address]- 0406 May, [facility] [place] [facility] [address] [id number] [place] [address]- 5750 May, 2014 [facility] [place] [facility] [address] [id number] [place] 1745 May, 2014 [facility] [place] [facility] [address] [id number] [place] 2267 May, 2014 [facility] [place] [facility] [address] [id number] [place] [address]- 2717 May, 2014 [facility] [place] [facility] [address] [id number] [place] [address]- 1229 May, [facility] [place] [facility] [address] [id number] [place] [address]- 4199 Apr, [facility] [place] [facility] [address] [facility] [id number] [place] [address]- 7520 Apr, [facility] [place] [facility] [address] [id number] [place] [address]- 9017 Apr, [facility] [place] [facility] [address] [id number] [place] [address]- 5349 Apr, [facility] [place] [facility] [address] [facility] [id number] [place] [address]- 2634 Mar, [facility] [place] [facility] [address] [id number], [place] [address]- 9313 Mar, [facility] [place] [facility] [address] [id number], [place] [address]- 9298 Mar, [facility] [place] [facility] [address] [id number] [place] [address]- 6665 Mar, [facility] [place] [facility] [address] [id number] [place] [address]- 4694 Feb, [facility] [place] [facility] [address] [facility] [id number] [place] [address]- 6057 Feb, [facility] [place] [facility] [address] [id number] [place] [address]- 9194 Feb, [facility] [place] [facility] [address] [id number] [place] [address]- 9926 Feb, [facility] [place] [facility] [address] [id number] [place] [address]- 3650 Feb, [facility] [place] [facility] [address] [id number] [place] [address]- 0021 Feb, [facility] [place] [facility] [address] [id number] [place] [address]- 2537 Feb, [facility] [place] [facility] [address] [id number] [place] [address]- 0282 Jan, [facility] [place] [facility] [address] [id number] [place] [address]- 3707 Jan, [facility] [place] [facility] [address] [id number] [place] [address]- 3121 Dec, [facility] [place] [facility] [address] [id number] [place] [address]- 7126 23 Dec, 2013 [facility] [place] [facility] [address] [id number] [place] [address]- 3085 10 Dec, 2013 [facility] [place] [facility] [address] [facility] [id number] [place] [address]- 2699 10 Dec, 2013 [facility] [place] [facility] [address] [id number] [place] [address] 2544 04 Dec, 2013 [facility] [place] [facility] [address] [id number] [place] [address]- 254 04 Dec, 2013 [facility] [place] [facility] [address] [id number] [place] [address]- 2214 Dec, 2013 [facility] [place] [facility] [address] [id number] [place] [address]- 2540 Dec, 2013 [facility] [place] [facility] [address] [id number] [place] [address]- 1042 Nov, [facility] [place] [facility] [address] [id number] [place] [address]- 6382 Nov, [facility] [place] [facility] [address] [id number] [place] [address]- 6542 Nov, [facility] [place] [facility] [address] [id number] [place] [address]- 5042 Nov, [facility] [place] [facility] [address] [id number] [place] [address]- 9922 Oct, [facility] [place] [facility] [address] [id number] [place] [address] Oct, [facility] [place] [facility] [address] [id number] [place] [address] Oct, [facility] [place] [facility] [address] [id number] [place] [address] Oct, [facility] [place] [facility] [address] [id number] [place] [address] Oct, [facility] [place] [facility] [address] [id number] [place] [address] Oct, [facility] [place] [facility] [address] [id number] [place] [address] Oct, [facility] [place] [facility] [address] [id number] [place] [address] Oct, [facility] [place] [facility] [address] [id number] [place] [address] Sep, [facility] [place] [facility] [address] [id number] [place] [address] Sep, [facility] [place] [facility] [address] [id number] [place] [address] August, [facility] [place] [facility] [address] [id number] [place] [address] August, [facility] [place] [facility] [address] [id number] [place] [address] Jul, [facility] [place] [facility] [address] [id number] [place] [address] Jul, [facility] [place] [facility] [address] [id number] [place] [address] Jul, [facility] [place] [facility] [address] [id number] [place] [address] Jul, [facility] [place] [facility] [address] [id number] [place] [address] Jul, [facility] [place] [facility] [address] [id number] [place] [address] Jul, [facility] [place] [facility] [address] [id number] [place] [address] Jul, [facility] [place] [facility] [address] [id number] [place] [address] Jul, [facility] [place] [facility] [address] [id number] [place] [address] Jun, [facility] [place] [facility] [address] [id number] [place] [address] Jun, [facility] [place] [facility] [address] [id number] [place] [address] Jun, [facility] [place] [facility] [address] [id number] [place] [address] Jun, [facility] [place] [facility] [address] [id number] [place] [address] May, [facility] [place] [facility] [address] [id number] [place] [address] May, [facility] [place] [facility] [address] [id number] [place] [address] Apr, [facility] [place] [facility] [address] [id number] [place] [address] Apr, [facility] [place] [facility] [address] [id number] [place] [address] 20 Mar, 2013 [facility] [address] [id number] [place] [address] Mar, [facility] [place] [facility] [address] [id number] [place] [address] 18 Mar, 2013 [facility] [place] [facility] [address] [id number] [place] [address] Mar, [facility] [place] [facility] [address] [address] [id number] [place] [address] Mar, [facility] [place] [facility] [address] [id number] [place] [address] Mar, [facility] [place] [facility] [address] [id number] [place] [address] Feb, [facility] [place] [facility] [address] [id number] [place] [address] Feb, [facility] [address] [id number] [place] [address] Feb, [facility] [place] [facility] [address] [id number] [place] [address] Feb, [facility] [place] [facility] [address] [id number] [place] [address] Feb, [facility] [place] [facility] [address] [id number] [place] [address] 9567 Feb, [facility] [place] [facility] [address] [id number] [place] [address] 32[address] Feb, [facility] [place] [facility] [address] [id number] [place] [address] 8580 Feb, [facility] [place] [facility] [address] [id number] [place] [address] 15 Jan, 2013 [facility] [place] [facility] [address] [id number] [place] [address] 3516 Jan, [facility] [place] [facility] [address] [id number] [place] [address]- [address] 14 Jan, 2013 [facility] [place] [facility] [address] [id number] [place] [address]- [address]24 14 Jan, 2013 [facility] [place] [facility] [address] [id number] [place] [address] 18 Dec, 2012 [facility] [place] [facility] [address] [id number] [place] [address] Dec, [facility] [place] [facility] [address] [id number] [place] [address] 2012 [facility] [place] [facility] [address] [id number] [place] [address] 6317 Nov, [facility] [place] [facility] [address] [id number] [place] [address]189 Nov, [facility] [place] [facility] [address] [id number] [place] [address] 16 Oct, 2012 [facility] [place] [facility] [address] [id number] [place] [address] Oct, [facility] [place] [facility] [address] [id number] [place] [address] 2773 Oct, [facility] [place] [facility] [address] [id number] [place] [address] Sep, [facility] [place] [facility] [address] [id number], [place] [address] Sep, [facility] [place] [facility] [address] [id number] [place] [address] 18 Sep, 2012 [facility] [place] [facility] [address] [id number], [place] [address] Sep, [facility] [place] [facility] [address] [id number] [place] [address] 1479 Sep, [facility] [place] [facility] [address] [id number] [place] [address]- 0416 Sep, [facility] [address] [id number] [place] [address] August, [facility] [address] [id number] [place] [address] August, [facility] [address] [id number] [place] [address] 6080 August, [facility] [address] [id number] [place] [address] 0152 August, [facility] [address] [id number] [place] [address]368 August, [facility] [address] [id number] [place] [address] 1041 August, [facility] [address] [id number] [place] [address] 0[address] August, [facility] [address] [id number] [place] [address] 3631 Jul, [facility] [address] [id number] [place] [address]42 Jul, [facility] [address] [id number] [place] [address] 1769 Jun, [facility] [address] [id number] [place] [address] 37[address] Jun, [facility] [place] [facility] [address] [id number] [place] [address]- 0979 May, [facility] [place] [facility] [address] [id number] [place] [address]- 9087 May, [facility] [place] [facility] [address] [id number] [place] [address] Apr, [facility] [address] [id number] [place] [address] 4226 Mar, [facility] [place] [facility] [address] [id number] [place] [address] 8888 Mar, [facility] [place] [facility] [address] [id number] [place] [address]- 0835 Mar, [facility] [place] [facility] [address] [id number] [place] [address] Mar, [facility] [place] [facility] [address] [id number] [place] [address], [place] [address]- [address] Mar, [facility] [place] [facility] [address] [id number] [place] [address] 0874 Mar, [facility] [place] [facility] [address] [id number] [place] [address]- 5258 Feb, [facility] [place] [facility] [address] [id number] [place] [address]- 4721 Feb, [facility] [place] [facility] [address] [id number] [place] [address]- 4760 Feb, [facility] [place] [facility] [address] [id number] [place] [address]- 0412 Feb, [facility] [place] [facility] [address] [id number] [place] [address]- 6797 Feb, [facility] [place] [facility] [address] [id number] [place] [address]- 7766 Feb, [facility] [place] [facility] [address] [id number], [place] [address]- 4[address] Feb, [facility] [place] [facility] [address] [id number] [place] [address]- 2981 Feb, [facility] [place] [facility] [address] [id number] [place] [address]- 4949 Jan, [facility] [place] [facility] [address] [id number] [place] [address]- 7537 Jan, [facility] [place] [facility] [address] [id number] [place] [address]- 2546 28 Dec, 2011 [facility] [place] [facility] [address] [id number] [place] [address] 2546 19 Dec, 2011 [facility] [place] [facility] [address] [id number] [place] [address] 2546 18 Dec, 2011 [facility] [place] [facility] [address] [id number] [place] [address] 2546 18 Dec, 2011 [facility] [place] [facility] [address] [id number] [place] [address] 2546 04 Dec, 2011 [facility] [place] [facility] [address] [id number] [place] [address]- 1459 Nov, [facility] [place] [facility] [address] [id number] [place] [address]- 1056 Oct, [facility] [place] [facility] [address] [id number] [place] [address]- 3971 Oct, [facility] [place] [facility] [address] [id number] [place] [address]- 7734 Sep, [facility] [place] [facility] [address] [id number] [place] [address]- 1711 Sep, [facility] [place] [facility] [address] [id number] [place] [address]- 3658 Sep, [facility] [place] [facility] [address] [id number] [place] [address]- 8201 Sep, [facility] [place] [facility] [address] [id number] [place] [address] 2547 Sep, [facility] [place] [facility] [address] [id number] [place] [address] 2548 Sep, [facility] [place] [facility] [address] [id number] [place] [address]- 6811 Sep, [facility] [place] [facility] [address] [id number] [place] [address]- 3956 Sep, [facility] [place] [facility] [address] [id number] [place] [address]- 0096 August, [facility] [address] [id number] [place] [address]- 5896 August, [facility] [address] [id number] [place] [address]- 2546 August, [facility] [address] [id number] [place] [address]- 4656 Jul, [facility] [address] [id number] [place] [address]- 2546 Jul, [facility] [address] [id number] [place] [address]- 4136 Jun, [facility] [address] [id number] [place] [address]- 9756 Jun, [facility] [address] [id number] [place] [address]- 4146 Jun, [facility] [address] [id number] [place] [address]- 6872 Jun, [facility] [address] [id number] [place] [address]- 6088 May, [facility] [address] [id number] [place] [address]- 4816 May, [facility] [address] [id number] [place] [address]- 6 Apr, [facility] [address] [id number] [place] [address]- 8116 Apr, [facility] [address] [id number] [place] [address]- 7006 Apr, [facility] [address] [id number] [place] [address]- 2546 Mar, [facility] [address] [id number] [place] [address]- 4024 Mar, [facility] [place] [facility] [address] [id number] [place] [address]- 9893 07 Mar, 2011 [facility] [place] [facility] [address] [id number] [place] [address]- 8618 Feb, [facility] [place] [facility] [address] [id number] [place] [address]- 2598 Feb, [facility] [place] [facility] [address] [id number] [place] [address]- 3123 Feb, [facility] [place] [facility] [address] [id number] [place] [address]- 2028 Feb, [facility] [place] [facility] [address] [id number] [place] [address]- 6351 Jan, [facility] [place] [facility] [address] [id number] [place] [address]- 7472 14 Jan, 2011 [facility] [place] [facility] [address] [id number], [place] [address]- 1239 Jan, [facility] [place] [facility] [address] [id number] [place] [address]- 5567 Dec, [facility] [place] [facility] [address] [id number], [place] [address]- 4083 Oct, [facility] [place] [facility] [address] [id number], [place] [address]- 2173 Mar, [facility] [place] [facility] [address] [id number], [place] [address]- 7101 Feb, [facility] [place] [facility] [address] [id number] [place] [address]- 0846 Feb, [facility] [place] [facility] [address] [id number], [place] [address]- 1552 16 May, 2009 [facility] [place] [facility] [address] [id number] [place] [address]- 9986 Apr, [facility] [place] [facility] [address] [facility] [id number], [place] [address]- 8828 Mar, [facility] [address] [id number], [place] [address]- [address] Jan, [facility] [address] [id number], [place] [address]- 9711 Oct, [facility] [address] [id number], [place] [address]- 6810 Jul, [facility] [id number], [place] [address]- 3057 Mar, [facility] [id number], [place] [address]- 9287 Feb, [facility] [address] [id number], [place] [address]- 7985 Jan, IMMUNIZATIONS No Known Immunizations SOCIAL HISTORY Never Assessed REASON FOR VISIT requesting a returned call PLAN OF CARE VITAL SIGNS MEDICATIONS [...]
--- NOTE | 2018-07-05 12:45 | NUR ---
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 PT STATES LEGS IMPROVING BUT R GREAT TOE SWOLLEN
--- OUTSIDE RECORDS SUMMARY | 2018-07-05 12:45 | XMS REPORT ---
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 Name Role Phone KATHYA FISCHER Unavailable PROBLEMS Type Condition ICD9-CM Code LOY52-EM Code Onset Dates Condition Status SNOMED Code Problem Uncontrolled type 2 diabetes mellitus without complication, without long-term current use of insulin E11.65 Active 587778576 Problem Fibromyalgia M79.7 Active 023538385 Problem Arthritis M19.90 Active 4260554 Problem Stress incontinence of urine N39.3 Active 98448124 Problem Obstructive sleep apnea G47.33 Active 13472849 Problem Hypertension, benign I10 Active 51621914 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 932709981 Problem Neuropathy G62.9 Active 283486274 Problem 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 Active 85242394 Problem Polyneuropathy G62.9 Active 26559824 Problem Type 2 diabetes mellitus with 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 E11.65 Active 500617185 Problem Controlled type 2 diabetes mellitus without complication, without long -term current use of insulin E11.9 Active [id number] ALLERGIES No Information ENCOUNTERS Encounter Location Date Diagnosis [place] [id number] [place] [address] 12678- 8965 Nov, [facility] [id number] [place] [address] 66219- 8230 Oct, Diabetes type 2, controlled E11.9 [facility] [id number] [place] [address] 38171- 1463 Oct, Type 2 diabetes mellitus with 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 E11.65 ; USP current use of insulin Z79.4 and Neuropathy G62.9 [facility] [id number] [place] [address] 69837- 3225 Oct, [facility] [id number] [place] [address] 18796- 9987 Oct, [facility] [address] [address]- 2783 Oct, [facility] [address] 4192 Oct, [facility] [address] [address]- 7622 Oct, [facility] [address] [address]- 4751 Oct, [facility] [id number] 6165 Oct, [facility] [address] 7948 Sep, [facility] [address] [address]- 3258 Sep, Uncontrolled type 2 diabetes mellitus without complication, without long-term current use of insulin E11.65 [facility] [address] [address]- 4166 Sep, Hypertension, benign I10 ; Fibromyalgia M79.7 ; Controlled type 2 diabetes mellitus without complication, without long-term current use of insulin E11.9 and Uncontrolled type 2 diabetes mellitus without complication, without long-term current use of insulin E11.65 [facility] [address] [address]- 7138 Sep, [facility] [address] [address]- 8630 Sep, Uncontrolled type 2 diabetes mellitus without complication, without long-term current use of insulin E11.65 [facility] [address] 8681 Sep, [facility] [id number] [address]- 2823 Sep, [facility] [id number] [place] [address] 46572- 8968 Sep, Uncontrolled type 2 diabetes mellitus without complication, without long-term current use of insulin E11.65 and Fibromyalgia M79.7 [facility] [id number] [place] [address] 57334- 9722 August, [facility] [id number] [place] [address] 71107- 3863 August, [facility] [id number] [place] [address] 77846- 5718 August, [facility] [address] 93183- 7753 August, Fibromyalgia M79.7 [facility] [id number] [place] [address] 40650- 9077 Jul, Hypertension, benign I10 [facility] [address] 26564- 9774 Jul, Fibromyalgia M79.7 [facility] [id number] [place] [address] 45236- 2921 Jul, [facility] [id number] [place] [address] 62467- 9465 Jun, [facility] [id number] [place] [address] 97768- 7336 Jun, Hypertension, benign I10 ; Arthritis M19.90 ; 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 and Uncontrolled type 2 diabetes mellitus without complication, without long-term current use of insulin E11.65 [facility] [id number] [place] [address] 81396 -4428 Jun, Acute nasopharyngitis J00 and BMI 50.0-59.9, adult Z68.43 [facility] [id number] [place] [address] 76195- 3082 Jun, Fibromyalgia M79.7 [facility] [id number] [place] [address] 01647- 2195 May, [facility] [address], [place] [address] 2546 May, Fibromyalgia M79.7 [facility] [id number] [place] [address] 63820 2546 Apr, Fibromyalgia M79.7 [facility] [id number] [place] [address] 44486 2546 Apr, [facility] [id number] [place] [address] 38440 2549 Apr, [facility] [id number] [place] [address] 50645- 1273 Apr, Arthritis M19.90 [facility] [id number] [place] [address] 74909- 2144 Apr, Arthritis M19.90 [facility] [id number] [place] [address] 05358- 7975 Apr, Arthritis M19.90 and Controlled type 2 diabetes mellitus without complication, without long-term current use of insulin E11.9 [facility] [address] [place] [address] 40463- 8892 Apr, [facility] [address] [place] [address] 04671- 7161 Apr, Fibromyalgia M79.7 [facility] [address] [place] [address] 77955- 6836 Mar, [facility] [address], [place] [address] 2546 Mar, [facility] [id number] [place] [address] 48214 2546 Mar, Fibromyalgia M79.7 [facility] [address], [place] [address]- 6226 Feb, [facility] [id number] [place] [address] 62106- 4754 Feb, [facility] [id number] [place] [address] 40004- 8505 Feb, [facility] [id number] [place] [address] 86076- 3380 Feb, Fibromyalgia M79.7 [facility] [address] 74787- 2224 Feb, Diabetes type 2, uncontrolled E11.65 and Encounter for immunization Z23 [facility] [address] 98943- 6630 Jan, [facility] [address] 09631- 0999 Jan, Fibromyalgia M79.7 [facility] [address] 43822- 7101 Dec, [facility] [address] 87399- 8925 Dec, Fibromyalgia M79.7 [facility] [id number] [place] [address] 80787- 5364 Nov, [facility] [id number] [place] [address] 66349- 8273 Nov, [facility] [id number] [place] [address] 27732- 8339 Nov, 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 and Polyneuropathy G62.9 [facility] [id number] [place] [address] 21447- 7829 Nov, [facility] [address] 66441- 9299 Nov, [facility] [id number] [place] [address] 20616- 4732 Oct, Diabetes type 2, uncontrolled E11.65 [facility] [address] [place] [address]- 8524 Oct, Diabetes type 2, uncontrolled E11.65 ; Polyneuropathy G62.9 and Pain in right wrist M25.531 [facility] [id number] [place] [address] 59767- 9982 Oct, [facility] [id number] [place] [address] 49536- 3731 Oct, Pain in left shoulder M25.512 [facility] [id number] [place] [address] 10235- 8973 Sep, [facility] [id number] [place] [address] 47186- 8740 Sep, Pain in left shoulder M25.512 [facility] [id number] [place] [address] 36140- 3278 Sep, [facility] [id number] [place] [address] 17306- 1440 August, Pain in left shoulder M25.512 [facility] [id number] [place] [address] 28046- 4254 Jul, [facility] [id number] [place] [address] 19941- 4392 Jul, [facility] [id number] [address]- 8068 Jul, Pain in left shoulder M25.512 [facility] [id number], [place] [address]- 2450 Jun, [facility] [id number] [place] [address] 05324- 8883 Jun, [facility] [id number] [place] [address] 12719- 2891 Jun, Diabetes type 2, uncontrolled E11.65 ; Fibromyalgia M79.7 and Arthritis M19.90 [facility] [id number] [place] [address] 46422- 1764 Jun, Pain in left shoulder M25.512 [facility] [address] [place] [address] 52748- 8916 May, [facility] [id number] [place] [address] 878060- 8996 May, Diabetes type 2, controlled E11.9 [facility] [id number] [place] [address] 81694- 0096 17 May, 2016 [facility] [id number] [place] [address] 978179- 5330 May, Uncontrolled type 2 diabetes mellitus without complication, without long-term current use of insulin E11.65 [facility] [id number] [place] [address] 90834- 3370 15 May, 2016 Pain in left shoulder M25.512 [facility] [id number] [place] [address] 32323- 0712 03 May, 2016 Diabetes type 2, controlled E11.9 and Uncontrolled type 2 diabetes mellitus without complication, without long-term current use of insulin E11.65 [facility] [address] [place] [address] 03552- 6790 Apr, [facility] [id number] [place] [address] 65409- 0923 Apr, [facility] [address] [place] [address] 49635- 8226 Mar, [facility] [address] [place] [address] 27445- 7297 Mar, [facility] [id number] [place] [address] 119997- 1735 Mar, [facility] [address] 5287 Feb, [facility] [address] [place] [address] [id number] Feb, Dental examination Z01.20 [facility] [address] [id number] [place] [address]- 8480 Jan, [facility] [address] [id number] [place] [address]- 3366 Dec, [facility] [address] [facility] [id number] [place] [address]- 9466 Dec, [facility] [address] [id number] [place] [address]- 4888 Dec, [facility] [address] [id number] [place] [address]- 0426 Dec, Diabetes type 2, controlled E11.9 [facility] [address] [facility] [id number] [place] [address]- 4486 Nov, [facility] [address] [facility] [id number] [place] [address]- 8769 Nov, [facility] [address] [facility] [id number] [place] [address]- 7979 Nov, [facility] [address] [facility] [id number] [place] [address]- 9976 Nov, [facility] [address] [facility] [id number] [address]- 5312 Oct, [facility] [address] [facility] [id number], [place] [address]- 1065 Oct, [facility] [address] [facility] [id number], [place] [address]- 2543 Oct, [facility] [address] [facility] [id number] [address]- 1523 Sep, [facility] [address] [facility] [id number] [address]- 3303 Sep, Diabetes type 2, controlled E11.9 [facility] [address] [facility] [id number] [address]- 1421 Sep, Diabetes type 2, controlled E11.9 [facility] [id number] [address]- 3900 August, [facility] [id number] [place] [address] 75788- 0831 August, [facility] [id number] [place] [address] 03457- 4783 August, Type 2 diabetes mellitus without complication E11.9 and Pain in left shoulder M25.512 [facility] [id number] [place] [address] 15849- 2429 Jul, [facility] [id number] [place] [address] 16772- 8276 Jul, Diabetes type 2, controlled E11.9 and Hypertension, benign I10 [facility] [id number] [place] [address] 67596- 6651 Jun, [facility] [id number] [place] [address] 20817- 9658 Jun, [facility] [id number] [place] [address] 99998- 6019 Jun, Diabetes 250.00 [facility] [id number] [place] [address] 29325- 6167 Jun, [facility] [id number] [place] [address] 05910- 8295 May, Diabetes type 2, uncontrolled E11.65 [facility] [address] [place] [address] 19073- 9475 May, [facility] [id number] [place] [address] 62066- 8259 Apr, Type 2 diabetes mellitus without complication E11.9 [facility] [address] [address]- 2329 Apr, Encounter for immunization Z23 [facility] [address] [place] [address]- 8849 Apr, [facility] [address] [id number] [place] 7462 Mar, [facility] [address] [id number] [place] [address]- 3191 Mar, [facility] [address] [facility] [id number] [place] 0605 Mar, [facility] [address] [facility] [id number] [place] [address]- 8691 Feb, [facility] [id number] [place] [address], [place] [address]- 1212 Jan, [facility] [address] [place] [address]- 7141 Jan, [facility] [address] [place] [address], [place] [address]- 3672 Jan, [facility] [address] [facility] [id number] [address]- 6042 Dec, Diabetes 250.00 and COPD (chronic obstructive pulmonary disease) 496 [facility] [address] [address]- 3612 Dec, [facility] [address] [address]- 2018 Dec, [facility] [id number] [address]- 4835 Nov, [facility] [address] [facility] [id number], [place] [address]- 8002 Oct, Diabetes 250.00 [facility] [address] [facility] [id number] 1711 Sep, [facility] [id number] [place] [address]- 1382 Sep, [facility] [address], [place] [address]- 6464 Sep, [facility] [address] [address]- 8495 Sep, Diabetes 250.00 [facility] [address] [address]- 1836 Sep, [facility] [id number] [place] [address] 15158- 5639 Sep, [facility] [id number] [place] [address] 62139- 5609 August, Hypertension, essential, benign 401.1 ; Coronary atherosclerosis of [place] coronary artery 414.01 and Diabetic neuropathy associated with type 2 diabetes mellitus 250.60 [facility] [address] [address]- 8652 29 Jul, 2014 [facility] [id number] [place] [address] 09022- 1312 Jul, [facility] [address], [place] [address]- 7746 Jul, [facility] [id number] 2234 Jun, [facility] [address] [address]- 3944 Jun, [facility] [address] [address]- 7489 Jun, [facility] [address], [place] [address]- 9824 Jun, [facility] [address], [place] [address]- 5094 Jun, [facility] [address] 3322 May, [facility] [address], [place] [address]- 2446 May, [facility] [place] [facility] [address] [id number] [place] [address]- 7228 May, 2014 [facility] [place] [facility] [address] [id number] [place] 6592 May, 2014 [facility] [place] [facility] [address] [id number] [place] 2966 May, 2014 [facility] [place] [facility] [address] [id number] [place] [address]- 3908 May, 2014 [facility] [place] [facility] [address] [id number] [place] [address]- 3168 May, [facility] [place] [facility] [address] [id number] [place] [address]- 7379 Apr, [facility] [place] [facility] [address] [facility] [id number] [place] [address]- 5872 Apr, [facility] [place] [facility] [address] [id number] [place] [address]- 4442 Apr, [facility] [place] [facility] [address] [id number] [place] [address]- 7896 Apr, [facility] [place] [facility] [address] [facility] [id number] [place] [address]- 7109 Mar, [facility] [place] [facility] [address] [id number], [place] [address]- 3355 Mar, [facility] [place] [facility] [address] [id number], [place] [address]- 0872 Mar, [facility] [place] [facility] [address] [id number] [place] [address]- 8419 Mar, [facility] [place] [facility] [address] [id number] [place] [address]- 3767 Feb, [facility] [place] [facility] [address] [facility] [id number] [place] [address]- 5379 Feb, [facility] [place] [facility] [address] [id number] [place] [address]- 2834 Feb, [facility] [place] [facility] [address] [id number] [place] [address]- 0215 Feb, [facility] [place] [facility] [address] [id number] [place] [address]- 9079 Feb, [facility] [place] [facility] [address] [id number] [place] [address]- 9144 Feb, [facility] [place] [facility] [address] [id number] [place] [address]- 5862 Feb, [facility] [place] [facility] [address] [id number] [place] [address]- 3970 Jan, [facility] [place] [facility] [address] [id number] [place] [address]- 0421 Jan, [facility] [place] [facility] [address] [id number] [place] [address]- 1260 Dec, [facility] [place] [facility] [address] [id number] [place] [address]- 5573 23 Dec, 2013 [facility] [place] [facility] [address] [id number] [place] [address]- 1430 10 Dec, 2013 [facility] [place] [facility] [address] [facility] [id number] [place] [address]- 3759 10 Dec, 2013 [facility] [place] [facility] [address] [id number] [place] [address] 2545 04 Dec, 2013 [facility] [place] [facility] [address] [id number] [place] [address]- 2540 04 Dec, 2013 [facility] [place] [facility] [address] [id number] [place] [address]- 6980 Dec, 2013 [facility] [place] [facility] [address] [id number] [place] [address]- 2549 Dec, 2013 [facility] [place] [facility] [address] [id number] [place] [address]- 7260 Nov, [facility] [place] [facility] [address] [id number] [place] [address]- 4556 Nov, [facility] [place] [facility] [address] [id number] [place] [address]- 6517 Nov, [facility] [place] [facility] [address] [id number] [place] [address]- 0402 Nov, [facility] [place] [facility] [address] [id number] [place] [address]- 1045 Oct, [facility] [place] [facility] [address] [id number] [place] [address]- 0131 Oct, [facility] [place] [facility] [address] [id number] [place] [address]- 4937 Oct, [facility] [place] [facility] [address] [id number] [place] [address]- 0105 Oct, [facility] [place] [facility] [address] [id number] [place] [address]- 9005 Oct, [facility] [place] [facility] [address] [id number] [place] [address]- [address] Oct, [facility] [place] [facility] [address] [id number] [place] [address] Oct, [facility] [place] [facility] [address] [id number] [place] [address] Oct, [facility] [place] [facility] [address] [id number] [place] [address] Sep, [facility] [place] [facility] [address] [id number] [place] [address] Sep, [facility] [place] [facility] [address] [id number] [place] [address] August, [facility] [place] [facility] [address] [id number] [place] [address] August, [facility] [place] [facility] [address] [id number] [place] [address] Jul, [facility] [place] [facility] [address] [id number] [place] [address] Jul, [facility] [place] [facility] [address] [id number] [place] [address] Jul, [facility] [place] [facility] [address] [id number] [place] [address] Jul, [facility] [place] [facility] [address] [id number] [place] [address] Jul, [facility] [place] [facility] [address] [id number] [place] [address] Jul, [facility] [place] [facility] [address] [id number] [place] [address] Jul, [facility] [place] [facility] [address] [id number] [place] [address] Jul, [facility] [place] [facility] [address] [id number] [place] [address] Jun, [facility] [place] [facility] [address] [id number] [place] [address] Jun, [facility] [place] [facility] [address] [id number] [place] [address] Jun, [facility] [place] [facility] [address] [id number] [place] [address] Jun, [facility] [place] [facility] [address] [id number] [place] [address] May, [facility] [place] [facility] [address] [id number] [place] [address] May, [facility] [place] [facility] [address] [id number] [place] [address] Apr, [facility] [place] [facility] [address] [id number] [place] [address] Apr, [facility] [place] [facility] [address] [id number] [place] [address] 20 Mar, 2013 [facility] [address] [id number] [place] [address] Mar, [facility] [place] [facility] [address] [id number] [place] [address] 18 Mar, 2013 [facility] [place] [facility] [address] [id number] [place] [address] Mar, [facility] [place] [facility] [address] [id number] [place] [address] Mar, [facility] [place] [facility] [address] [id number] [place] [address]- [address] Mar, [facility] [place] [facility] [address] [id number] [place] [address] Feb, [facility] [place] [facility] [address] [id number] [place] [address] Feb, [facility] [address] [id number] [place] [address] Feb, [facility] [place] [facility] [address] [id number] [place] [address] Feb, [facility] [place] [facility] [address] [id number] [place] [address] Feb, [facility] [place] [facility] [address] [id number] [place] [address] Feb, [facility] [place] [facility] [address] [id number] [place] [address] Feb, [facility] [place] [facility] [address] [id number] [place] [address] Feb, [facility] [place] [facility] [address] [id number] [place] [address] 15 Jan, 2013 [facility] [place] [facility] [address] [id number] [place] [address] Jan, [facility] [place] [facility] [address] [id number] [place] [address]- [address] 14 Jan, 2013 [facility] [place] [facility] [address] [id number] [place] [address]- [address]85 14 Jan, 2013 [facility] [place] [facility] [address] [id number] [place] [address]- [address]67 18 Dec, 2012 [facility] [place] [facility] [address] [id number] [place] [address] Dec, [facility] [place] [facility] [address] [id number] [place] [address] 2012 [facility] [place] [facility] [address] [id number] [place] [address] Nov, [facility] [place] [facility] [address] [id number] [place] [address] Nov, [facility] [place] [facility] [address] [id number] [place] [address]- 1727 16 Oct, 2012 [facility] [place] [facility] [address] [id number] [place] [address]394 Oct, [facility] [place] [facility] [address] [id number] [place] [address]80 Oct, [facility] [place] [facility] [address] [id number] [place] [address] 285[address] Sep, [facility] [place] [facility] [address] [id number], [place] [address] Sep, [facility] [place] [facility] [address] [id number] [place] [address]647 18 Sep, 2012 [facility] [place] [facility] [address] [id number], [place] [address] Sep, [facility] [place] [facility] [address] [id number] [place] [address] Sep, [facility] [place] [facility] [address] [id number] [place] [address] 1058 Sep, [facility] [address] [id number] [place] [address] August, [facility] [address] [id number] [place] [address] August, [facility] [address] [id number] [place] [address] 4195 August, [facility] [address] [id number] [place] [address]247 August, [facility] [address] [id number] [place] [address] 6214 August, [facility] [address] [id number] [place] [address] 2629 August, [facility] [address] [id number] [place] [address] 89[address] August, [facility] [address] [id number] [place] [address] 9748 Jul, [facility] [address] [id number] [place] [address] 37[address] Jul, [facility] [address] [id number] [place] [address] 1510 Jun, [facility] [address] [id number] [place] [address]83 Jun, [facility] [place] [facility] [address] [id number] [place] [address] 8891 May, [facility] [place] [facility] [address] [id number] [place] [address] 2900 May, [facility] [place] [facility] [address] [id number] [place] [address] 0515 Apr, [facility] [address] [id number] [place] [address] 0919 Mar, [facility] [place] [facility] [address] [id number] [place] [address] 8045 Mar, [facility] [place] [facility] [address] [id number] [place] [address] 4038 Mar, [facility] [place] [facility] [address] [id number] [place] [address] Mar, [facility] [place] [facility] [address] [id number] [place] [address], [place] [address]- [address] Mar, [facility] [place] [facility] [address] [id number] [place] [address] 8803 Mar, [facility] [place] [facility] [address] [id number] [place] [address] 5024 Feb, [facility] [place] [facility] [address] [id number] [place] [address] 6886 Feb, [facility] [place] [facility] [address] [id number] [place] [address] 1235 Feb, [facility] [place] [facility] [address] [id number] [place] [address]- 3318 Feb, [facility] [place] [facility] [address] [id number] [place] [address]- 8453 Feb, [facility] [place] [facility] [address] [id number] [place] [address]- 9707 Feb, [facility] [place] [facility] [address] [id number], [place] [address] Feb, [facility] [place] [facility] [address] [id number] [place] [address] 4334 Feb, [facility] [place] [facility] [address] [id number] [place] [address]- 5618 Jan, [facility] [place] [facility] [address] [id number] [place] [address]- 8510 Jan, [facility] [place] [facility] [address] [id number] [place] [address]- 2546 28 Dec, 2011 [facility] [place] [facility] [address] [id number] [place] [address] 2546 19 Dec, 2011 [facility] [place] [facility] [address] [id number] [place] [address] 2546 18 Dec, 2011 [facility] [place] [facility] [address] [id number] [place] [address] 2546 18 Dec, 2011 [facility] [place] [facility] [address] [id number] [place] [address] 2546 04 Dec, 2011 [facility] [place] [facility] [address] [id number] [place] [address] 4609 Nov, [facility] [place] [facility] [address] [id number] [place] [address]- 7857 Oct, [facility] [place] [facility] [address] [id number] [place] [address]- 8054 Oct, [facility] [place] [facility] [address] [id number] [place] [address]- 1309 Sep, [facility] [place] [facility] [address] [id number] [place] [address]- 6959 Sep, [facility] [place] [facility] [address] [id number] [place] [address]- 3510 Sep, [facility] [place] [facility] [address] [id number] [place] [address]- 0194 Sep, [facility] [place] [facility] [address] [id number] [place] [address] 2545 Sep, [facility] [place] [facility] [address] [id number] [place] [address] 2542 Sep, [facility] [place] [facility] [address] [id number] [place] [address]- 3842 Sep, [facility] [place] [facility] [address] [id number] [place] [address]- 7439 Sep, [facility] [place] [facility] [address] [id number] [place] [address]- 4086 August, [facility] [address] [id number] [place] [address]- 6536 August, [facility] [address] [id number] [place] [address]- 2546 August, [facility] [address] [id number] [place] [address]- 0066 Jul, [facility] [address] [id number] [place] [address]- 2546 Jul, [facility] [address] [id number] [place] [address]- 1446 Jun, [facility] [address] [id number] [place] [address]- 2666 Jun, [facility] [address] [id number] [place] [address]- 4676 Jun, [facility] [address] [id number] [place] [address]- 8569 Jun, [facility] [address] [id number] [place] [address]- 7231 May, [facility] [address] [id number] [place] [address]- 9196 May, [facility] [address] [id number] [place] [address]- 2596 Apr, [facility] [address] [id number] [place] [address]- 8096 Apr, [facility] [address] [id number] [place] [address]- 5656 Apr, [facility] [address] [id number] [place] [address]- 2546 Mar, [facility] [address] [id number] [place] [address]- 6092 Mar, [facility] [place] [facility] [address] [id number] [place] [address]- 2931 07 Mar, 2011 [facility] [place] [facility] [address] [id number] [place] [address]- 9432 Feb, [facility] [place] [facility] [address] [id number] [place] [address]- 1759 Feb, [facility] [place] [facility] [address] [id number] [place] [address]- [address] Feb, [facility] [place] [facility] [address] [id number] [place] [address]- 5034 Feb, [facility] [place] [facility] [address] [id number] [place] [address]- 5035 Jan, [facility] [place] [facility] [address] [id number] [place] [address]- 7772 14 Jan, 2011 [facility] [place] [facility] [address] [id number], [place] [address]- 9437 Jan, [facility] [place] [facility] [address] [id number] [place] [address]- 9253 Dec, [facility] [place] [facility] [address] [id number], [place] [address]- 9894 Oct, [facility] [place] [facility] [address] [id number], [place] [address]- 8330 Mar, [facility] [place] [facility] [address] [id number], [place] [address]- 6299 Feb, [facility] [place] [facility] [address] [id number] [place] [address]- 3058 Feb, [facility] [place] [facility] [address] [id number], [place] [address]- 2382 16 May, 2009 [facility] [place] [facility] [address] [id number] [place] [address]- 4133 Apr, [facility] [place] [facility] [address] [facility] [id number], [place] [address]- [address] Mar, [facility] [address] [id number], [place] [address]- 6216 Jan, [facility] [address] [id number], [place] [address]- [address]64 Oct, [facility] [address] [id number], [place] [address]- 0918 Jul, [facility] [id number], [place] [address]- 0245 Mar, [facility] [id number], [place] [address]- 8743 Feb, [facility] [address] [id number], [place] [address]- [address]056 Jan, IMMUNIZATIONS No Known Immunizations SOCIAL HISTORY [...]
--- OUTSIDE RECORDS SUMMARY | 2018-07-05 12:46 | XMS REPORT ---
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 Name Role Phone KATHYA FISCHER Unavailable PROBLEMS Type Condition ICD9-CM Code DYR20-WI Code Onset Dates Condition Status SNOMED Code Problem Uncontrolled type 2 diabetes mellitus without complication, without long-term current use of insulin E11.65 Active 102771224 Problem Fibromyalgia M79.7 Active 357805379 Problem Arthritis M19.90 Active 5595948 Problem Stress incontinence of urine N39.3 Active 26958370 Problem Obstructive sleep apnea G47.33 Active 78902266 Problem Hypertension, benign I10 Active 95609065 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 Active 621670872 Problem Neuropathy G62.9 Active 790602990 Problem 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 Active 05758782 Problem Polyneuropathy G62.9 Active 94078286 Problem Type 2 diabetes mellitus with 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 E11.65 Active 810505086 Problem Controlled type 2 diabetes mellitus without complication, without long -term current use of insulin E11.9 Active 783412610 ALLERGIES No Information ENCOUNTERS Encounter Location Date Diagnosis [place] [id number] [place] [address] 01289- 1928 Nov, [facility] [id number] [place] [address] 49549- 5476 Oct, Diabetes type 2, controlled E11.9 [facility] [id number] [place] [address] 18376- 7128 Oct, Type 2 diabetes mellitus with 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 E11.65 ; halfway current use of insulin Z79.4 and Neuropathy G62.9 [facility] [id number] [place] [address] 82596- 7106 Oct, [facility] [id number] [place] [address] 04476- 8714 Oct, [facility] [address], [place] [address] 2332 Oct, [facility] [address] 2576 Oct, [facility] [address], [place] [address]- 4335 Oct, [facility] [address], [place] [address] 1521 Oct, [facility] [id number] 7869 Oct, [facility] [address] 2891 Sep, [facility] [address], [place] [address]- 7319 Sep, Uncontrolled type 2 diabetes mellitus without complication, without long-term current use of insulin E11.65 [facility] [address], [place] [address]- 9641 Sep, Hypertension, benign I10 ; Fibromyalgia M79.7 ; Controlled type 2 diabetes mellitus without complication, without long-term current use of insulin E11.9 and Uncontrolled type 2 diabetes mellitus without complication, without long-term current use of insulin E11.65 [facility] [address], [place] [address]- 9298 Sep, [facility] [address], [place] [address]- 4920 Sep, Uncontrolled type 2 diabetes mellitus without complication, without long-term current use of insulin E11.65 [facility] [address] 7970 Sep, [facility] [id number], [place] [address]- 6664 Sep, [facility] [id number] [place] [address] 71516- 4324 Sep, Uncontrolled type 2 diabetes mellitus without complication, without long-term current use of insulin E11.65 and Fibromyalgia M79.7 [facility] [id number] [place] [address] 03538- 6038 August, [facility] [id number] [place] [address] 01163- 3466 August, [facility] [id number] [place] [address] 98241- 9104 August, [facility] [address] 48585- 0445 August, Fibromyalgia M79.7 [facility] [id number] [place] [address] 58781- 1895 Jul, Hypertension, benign I10 [facility] [address] 84010- 7485 Jul, Fibromyalgia M79.7 [facility] [id number] [place] [address] 84060- 0894 Jul, [facility] [id number] [place] [address] 35442- 0468 Jun, [facility] [id number] [place] [address] 98468- 6917 Jun, Hypertension, benign I10 ; Arthritis M19.90 ; 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 and Uncontrolled type 2 diabetes mellitus without complication, without long-term current use of insulin E11.65 [facility] [id number] [place] [address] 88509 -6341 Jun, Acute nasopharyngitis J00 and BMI 50.0-59.9, adult Z68.43 [facility] [id number] [place] [address] 40609- 4840 Jun, Fibromyalgia M79.7 [facility] [id number] [place] [address] 34538- 6350 May, [facility] [address], [place] [address] 2546 May, Fibromyalgia M79.7 [facility] [id number] [place] [address] 14106 2546 Apr, Fibromyalgia M79.7 [facility] [id number] [place] [address] 73998 2546 Apr, [facility] [id number] [place] [address] 91798 254 Apr, [facility] [id number] [place] [address] 51187- 5185 Apr, Arthritis M19.90 [facility] [id number] [place] [address] 46291- 6939 Apr, Arthritis M19.90 [facility] [id number] [place] [address] 71741- 4002 Apr, Arthritis M19.90 and Controlled type 2 diabetes mellitus without complication, without long-term current use of insulin E11.9 [facility] [id number] [place] [address] 66714- 4811 Apr, [facility] [id number] [place] [address] 59706- 5387 Apr, Fibromyalgia M79.7 [facility] [id number] [place] [address] 767186 Mar, [facility] [address], [place] [address] 2546 Mar, [facility] [id number] [place] [address] 34268 2546 Mar, Fibromyalgia M79.7 [facility] [address], [place] [address]- 1786 Feb, [facility] [id number] [place] [address] 62694- 2732 Feb, [facility] [id number] [place] [address] 37245- 5157 Feb, [facility] [id number] [place] [address] 21467- 1898 Feb, Fibromyalgia M79.7 [facility] [address] 88834- 5065 Feb, Diabetes type 2, uncontrolled E11.65 and Encounter for immunization Z23 [facility] [address] 47596- 9846 Jan, [facility] [address] 17954- 5802 Jan, Fibromyalgia M79.7 [facility] [address] 35058- 0171 Dec, [facility] [address] 31114- 3780 Dec, Fibromyalgia M79.7 [facility] [id number] [place] [address] 78534- 3657 Nov, [facility] [id number] [place] [address] 35076- 4227 Nov, [facility] [id number] [place] [address] 50061- 6730 Nov, 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 and Polyneuropathy G62.9 [facility] [id number] [place] [address] 37519- 5885 Nov, [facility] [address] 43683- 7691 Nov, [facility] [id number] [place] [address] 87502- 5460 Oct, Diabetes type 2, uncontrolled E11.65 [facility] [address] [place] [address]- 8719 Oct, Diabetes type 2, uncontrolled E11.65 ; Polyneuropathy G62.9 and Pain in right wrist M25.531 [facility] [id number] [place] [address] 79636- 6997 Oct, [facility] [id number] [place] [address] 47137- 8997 Oct, Pain in left shoulder M25.512 [facility] [id number] [place] [address] 72221- 2012 Sep, [facility] [id number] [place] [address] 35681- 3086 Sep, Pain in left shoulder M25.512 [facility] [id number] [place] [address] 02783- 6103 Sep, [facility] [id number] [place] [address] 53589- 4163 August, Pain in left shoulder M25.512 [facility] [id number] [place] [address] 49522- 1175 Jul, [facility] [id number] [place] [address] 46924- 6009 Jul, [facility] [id number] [address]- 8518 Jul, Pain in left shoulder M25.512 [facility] [id number] [address]- 7306 Jun, [facility] [id number] [place] [address] 31897- 0508 Jun, [facility] [id number] [place] [address] 25563- 7945 Jun, Diabetes type 2, uncontrolled E11.65 ; Fibromyalgia M79.7 and Arthritis M19.90 [facility] [id number] [place] [address] 82207- 6133 Jun, Pain in left shoulder M25.512 [facility] [address] [place] [address] 83753- 2312 May, [facility] [id number] [place] [address] 680848- 1555 May, Diabetes type 2, controlled E11.9 [facility] [id number] [place] [address] 54432- 6126 17 May, 2016 [facility] [id number] [place] [address] 165584- 5107 May, Uncontrolled type 2 diabetes mellitus without complication, without long-term current use of insulin E11.65 [facility] [id number] [place] [address] 73554- 2292 15 May, 2016 Pain in left shoulder M25.512 [facility] [id number] [place] [address] 23740- 6300 03 May, 2016 Diabetes type 2, controlled E11.9 and Uncontrolled type 2 diabetes mellitus without complication, without long-term current use of insulin E11.65 [facility] [address] [place] [address] 77648- 3386 Apr, [facility] [id number] [place] [address] 64975- 5557 Apr, [facility] [id number] [place] [address] 13134- 2765 Mar, [facility] [id number] [place] [address] 30760- 9374 Mar, [facility] [id number] [place] [address] 225938- 3584 Mar, [facility] [address] 8197 Feb, [facility] [address] [place] [address] [id number] Feb, Dental examination Z01.20 [facility] [address] [id number] [place] [address]- 8545 Jan, [facility] [address] [id number] [place] [address]- 8836 Dec, [facility] [address] [facility] [id number] [place] [address]- 7426 Dec, [facility] [address] [id number] [place] [address]- 2104 Dec, [facility] [address] [id number] [place] [address]- 8201 Dec, Diabetes type 2, controlled E11.9 [facility] [address] [facility] [id number] [place] [address]- 9801 Nov, [facility] [address] [facility] [id number] [place] [address]- 6043 Nov, [facility] [address] [facility] [id number] [place] [address]- 4612 Nov, [facility] [address] [facility] [id number] [place] [address]- 8563 Nov, [facility] [address] [facility] [id number], [place] [address]- 6003 Oct, [facility] [address] [facility] [id number], [place] [address]- 1874 Oct, [facility] [address] [facility] [id number], [place] [address]- 2541 Oct, [facility] [address] [facility] [id number], [place] [address]- 1540 Sep, [facility] [address] [facility] [id number], [place] [address]- 0113 Sep, Diabetes type 2, controlled E11.9 [facility] [address] [facility] [id number], [place] [address]- 8949 Sep, Diabetes type 2, controlled E11.9 [facility] [id number], [place] [address]- 1018 August, [facility] [id number] [place] [address] 98948- 6029 August, [facility] [id number] [place] [address] 73325- 5289 August, Type 2 diabetes mellitus without complication E11.9 and Pain in left shoulder M25.512 [facility] [id number] [place] [address] 32143- 6481 Jul, [facility] [id number] [place] [address] 27529- 4553 Jul, Diabetes type 2, controlled E11.9 and Hypertension, benign I10 [facility] [id number] [place] [address] 20048- 0574 Jun, [facility] [id number] [place] [address] 98447- 9116 Jun, [facility] [id number] [place] [address] 85908- 0249 Jun, Diabetes 250.00 [facility] [id number] [place] [address] 88739- 6913 Jun, [facility] [id number] [place] [address] 95803- 4244 May, Diabetes type 2, uncontrolled E11.65 [facility] [address] [place] [address] 31882- 1002 May, [facility] [id number] [place] [address] 53201- 0601 Apr, Type 2 diabetes mellitus without complication E11.9 [facility] [address], [place] [address]- 5142 Apr, Encounter for immunization Z23 [facility] [address] [place] [address]- 1048 Apr, [facility] [address] [id number] [place] 4775 Mar, [facility] [address] [id number] [place] [address]- 4683 Mar, [facility] [address] [facility] [id number] [place] 7401 Mar, [facility] [address] [facility] [id number] [place] [address]- 5255 Feb, [facility] [id number] [place] [address], [place] [address]- 1262 Jan, [facility] [address] [place] [address]- 8215 Jan, [facility] [address] [place] [address], [place] [address]- 2382 Jan, [facility] [address] [facility] [id number], [place] [address]- 0379 Dec, Diabetes 250.00 and COPD (chronic obstructive pulmonary disease) 496 [facility] [address], [place] [address]- 4690 Dec, [facility] [address], [place] [address]- 7029 Dec, [facility] [id number], [place] [address]- 0398 Nov, [facility] [address] [facility] [id number], [place] [address]- 2433 Oct, Diabetes 250.00 [facility] [address] [facility] [id number][place]- 4231 Sep, [facility] [id number] [place] [address]- 9327 Sep, [facility] [address], [place] [address]- 6969 Sep, [facility] [address], [place] [address]- 5286 Sep, Diabetes 250.00 [facility] [address], [place] [address]- 4723 Sep, [facility] [id number] [place] [address] 41768- 1220 Sep, [facility] [id number] [place] [address] 03581- 9199 August, Hypertension, essential, benign 401.1 ; Coronary atherosclerosis of [place] coronary artery 414.01 and Diabetic neuropathy associated with type 2 diabetes mellitus 250.60 [facility] [address], [place] [address]- 8073 29 Jul, 2014 [facility] [id number] [place] [address] 82619- 0725 Jul, [facility] [address], [place] [address]- 5848 Jul, [facility] [id number]- 3701 Jun, [facility] [address], [place] [address]- 9608 Jun, [facility] [address], [place] [address]- 9957 Jun, [facility] [address], [place] [address]- 6674 Jun, [facility] [address], [place] [address]- 9033 Jun, [facility] [address] 8286 May, [facility] [address], [place] [address]- 9167 May, [facility] [place] [facility] [address] [id number] [place] [address]- 6577 May, 2014 [facility] [place] [facility] [address] [id number] [place] 9687 May, 2014 [facility] [place] [facility] [address] [id number] [place] 7970 May, 2014 [facility] [place] [facility] [address] [id number] [place] [address]- 9691 May, 2014 [facility] [place] [facility] [address] [id number] [place] [address]- 5483 May, [facility] [place] [facility] [address] [id number] [place] [address]- 8270 Apr, [facility] [place] [facility] [address] [facility] [id number] [place] [address]- 0780 Apr, [facility] [place] [facility] [address] [id number] [place] [address]- 8740 Apr, [facility] [place] [facility] [address] [id number] [place] [address]- 2083 Apr, [facility] [place] [facility] [address] [facility] [id number] [place] [address]- 9504 Mar, [facility] [place] [facility] [address] [id number], [place] [address]- 4279 Mar, [facility] [place] [facility] [address] [id number], [place] [address]- 9194 Mar, [facility] [place] [facility] [address] [id number] [place] [address]- 0299 Mar, [facility] [place] [facility] [address] [id number] [place] [address]- 2442 Feb, [facility] [place] [facility] [address] [facility] [id number] [place] [address]- 1062 Feb, [facility] [place] [facility] [address] [id number] [place] [address] Feb, [facility] [place] [facility] [address] [id number] [place] [address] Feb, [facility] [place] [facility] [address] [id number] [place] [address] Feb, [facility] [place] [facility] [address] [id number] [place] [address] Feb, [facility] [place] [facility] [address] [id number] [place] [address] Feb, [facility] [place] [facility] [address] [id number] [place] [address] Jan, [facility] [place] [facility] [address] [id number] [place] [address] Jan, [facility] [place] [facility] [address] [id number] [place] [address] Dec, [facility] [place] [facility] [address] [id number] [place] [address] 23 Dec, 2013 [facility] [place] [facility] [address] [id number] [place] [address] 10 Dec, 2013 [facility] [place] [facility] [address] [facility] [id number] [place] [address] 10 Dec, 2013 [facility] [place] [facility] [address] [id number] [place] [address] 254 04 Dec, 2013 [facility] [place] [facility] [address] [id number] [place] [address] 04 Dec, 2013 [facility] [place] [facility] [address] [id number] [place] [address]- [address] Dec, 2013 [facility] [place] [facility] [address] [id number] [place] [address]- [address] Dec, 2013 [facility] [place] [facility] [address] [id number] [place] [address] Nov, [facility] [place] [facility] [address] [id number] [place] [address] Nov, [facility] [place] [facility] [address] [id number] [place] [address] Nov, [facility] [place] [facility] [address] [id number] [place] [address] Nov, [facility] [place] [facility] [address] [id number] [place] [address] Oct, [facility] [place] [facility] [address] [id number] [place] [address] Oct, [facility] [place] [facility] [address] [id number] [place] [address] Oct, [facility] [place] [facility] [address] [id number] [place] [address] Oct, [facility] [place] [facility] [address] [id number] [place] [address] Oct, [facility] [place] [facility] [address] [id number] [place] [address] Oct, [facility] [place] [facility] [address] [id number] [place] [address]- [address] Oct, [facility] [place] [facility] [address] [id number] [place] [address] Oct, [facility] [place] [facility] [address] [id number] [place] [address] Sep, [facility] [place] [facility] [address] [id number] [place] [address] Sep, [facility] [place] [facility] [address] [id number] [place] [address] August, [facility] [place] [facility] [address] [id number] [place] [address] August, [facility] [place] [facility] [address] [id number] [place] [address] Jul, [facility] [place] [facility] [address] [id number] [place] [address] Jul, [facility] [place] [facility] [address] [id number] [place] [address] Jul, [facility] [place] [facility] [address] [id number] [place] [address] Jul, [facility] [place] [facility] [address] [id number] [place] [address] Jul, [facility] [place] [facility] [address] [id number] [place] [address]- [address] Jul, [facility] [place] [facility] [address] [id number] [place] [address] Jul, [facility] [place] [facility] [address] [id number] [place] [address] Jul, [facility] [place] [facility] [address] [id number] [place] [address] Jun, [facility] [place] [facility] [address] [id number] [place] [address] Jun, [facility] [place] [facility] [address] [id number] [place] [address] Jun, [facility] [place] [facility] [address] [id number] [place] [address] Jun, [facility] [facility] [address] [id number] [place] [address] May, [facility] [place] [facility] [address] [id number] [place] [address] May, [facility] [place] [facility] [address] [id number] [place] [address] Apr, [facility] [place] [facility] [address] [id number] [place] [address] Apr, [facility] [place] [facility] [address] [id number] [place] [address] 20 Mar, 2013 [facility] [address] [id number] [place] [address] Mar, [facility] [address] [id number] [place] [address] 18 Mar, 2013 [facility] [place] [facility] [address] [id number] [place] [address]165 Mar, [facility] [place] [facility] [address] [id number] [place] [address] 4[address] Mar, [facility] [place] [facility] [address] [id number] [place] [address] Mar, [facility] [address] [id number] [place] [address] Feb, [facility] [place] [facility] [address] [id number] [place] [address] 2270 Feb, [facility] [address] [id number] [place] [address] 6055 Feb, [facility] [address] [id number] [place] [address] Feb, [facility] [address] [id number] [place] [address]- 1289 Feb, [facility] [address] [id number] [place] [address] 3245 Feb, [facility] [place] [facility] [address] [id number] [place] [address]- 5544 Feb, [facility] [address] [id number] [place] [address] Feb, [facility] [address] [id number] [place] [address]- 0965 15 Jan, 2013 [facility] [address] [id number] [place] [address]- 2542 Jan, [facility] [address] [id number] [place] [address]- 9260 14 Jan, 2013 [facility] [address] [id number] [place] [address] 88[address] 14 Jan, 2013 [facility] [address] [id number] [place] [address]- 3699 18 Dec, 2012 [facility] [address] [id number] [place] [address]- [address] Dec, [facility] [address] [id number] [place] [address]- [address]478 2012 [facility] [address] [id number] [place] [address] 3840 Nov, [facility] [address] [id number] [place] [address]- 5535 Nov, [facility] [address] [id number] [place] [address]- [address]991 16 Oct, 2012 [facility] [facility] [address] [id number] [place] [address]- 2254 Oct, [facility] [address] [id number] [place] [address]- 2111 Oct, [facility] [address] [id number] [place] [address] 3144 Sep, [facility] [address] [id number], [place] [address]- [address] Sep, [facility] [address] [id number] [place] [address]- 8479 18 Sep, 2012 [facility] [address] [id number], [place] [address] Sep, [facility] [address] [id number] [place] [address]- 2181 Sep, [facility] [address] [id number] [place] [address] 5800 Sep, [facility] [address] [id number] [place] [address] 6214 August, [facility] [address] [id number] [place] [address] August, [facility] [address] [id number] [place] [address] 3345 August, [facility] [address] [id number] [place] [address] 1868 August, [facility] [address] [id number] [place] [address] 1832 August, [facility] [address] [id number] [place] [address]- 0272 August, [facility] [address] [id number] [place] [address]- 2956 August, [facility] [address] [id number] [place] [address]- 8513 Jul, [facility] [address] [id number] [place] [address] 7354 Jul, [facility] [address] [id number] [place] [address]- 9114 Jun, [facility] [address] [id number] [place] [address] 0493 Jun, [facility] [address] [id number] [place] [address] 1624 May, [facility] [address] [id number] [place] [address]- 6421 May, [facility] [address] [id number] [place] [address]- 5251 Apr, [facility] [address] [id number] [place] [address]- 3798 Mar, [facility] [address] [id number] [place] [address]- 3656 Mar, [facility] [address] [id number] [place] [address]- 0789 Mar, [facility] [address] [id number] [place] [address] Mar, [facility] [id number] [place] [address], [place] [address] 9860 Mar, [facility] [address] [id number] [place] [address] 8063 Mar, [facility] [address] [id number] [place] [address] 4815 Feb, [facility] [address] [id number] [place] [address]- 5297 Feb, [facility] [address] [id number] [place] [address]- 2840 Feb, [facility] [address] [id number] [place] [address]- 0370 Feb, [facility] [address] [id number] [place] [address]- 0165 Feb, [facility] [address] [id number] [place] [address]- 9407 Feb, [facility] [address] [id number], [place] [address] 7857 Feb, [facility] [address] [id number] [place] [address]- 5885 Feb, [facility] [address] [id number] [place] [address]- 0889 Jan, [facility] [address] [id number] [place] [address]- 9904 Jan, [facility] [address] [id number] [place] [address]- 2546 28 Dec, 2011 [facility] [address] [id number] [place] [address] 2546 19 Dec, 2011 [facility] [address] [id number] [place] [address] 2546 18 Dec, 2011 [facility] [address] [id number] [place] [address] 2546 18 Dec, 2011 [facility] [address] [id number] [place] [address] 2546 04 Dec, 2011 [facility] [address] [id number] [place] [address]- 7144 Nov, [facility] [address] [id number] [place] [address]- 2272 Oct, [facility] [address] [id number] [place] [address]- 3903 Oct, [facility] [address] [id number] [place] [address]- 5993 Sep, [facility] [address] [id number] [place] [address]- 4192 Sep, [facility] [address] [id number] [place] [address]- 3105 Sep, [facility] [address] [id number] [place] [address]- 3242 Sep, [facility] [address] [id number] [place] [address] 254 Sep, [facility] [address] [id number] [place] [address] 2541 Sep, [facility] [address] [id number] [place] [address]- 5087 Sep, [facility] [address] [id number] [place] [address]- 8844 Sep, [facility] [address] [id number] [place] [address]- 3516 August, [facility] [address] [id number] [place] [address]- 2406 August, [facility] [address] [id number] [place] [address]- 2546 August, [facility] [address] [id number] [place] [address]- 8856 Jul, [facility] [address] [id number] [place] [address]- 2546 Jul, [facility] [address] [id number] [place] [address]- 8876 Jun, [facility] [address] [id number] [place] [address]- 0486 Jun, [facility] [address] [id number] [place] [address]- 2376 Jun, [facility] [address] [id number] [place] [address]- 6944 Jun, [facility] [address] [id number] [place] [address]- 3888 May, [facility] [address] [id number] [place] [address]- 7446 May, [facility] [address] [id number] [place] [address]- 9956 Apr, [facility] [address] [id number] [place] [address]- 3566 Apr, [facility] [address] [id number] [place] [address]- 2506 Apr, [facility] [address] [id number] [place] [address]- 2546 Mar, [facility] [address] [id number] [place] [address]- 1395 Mar, [facility] [address] [id number] [place] [address]- 7015 07 Mar, 2011 [facility] [address] [id number] [place] [address]- 1137 Feb, [facility] [address] [id number] [place] [address]- 1584 Feb, [facility] [address] [id number] [place] [address]- 5937 Feb, [facility] [address] [id number] [place] [address]- 1231 Feb, [facility] [facility] [address] [id number] [place] [address]- 8780 Jan, [facility] [address] [id number] [place] [address]- 5843 14 Jan, 2011 [facility] [address] [id number], [place] [address]- 8028 Jan, [facility] [address] [id number] [place] [address]- 1566 Dec, [facility] [address] [id number], [place] [address]- 1003 Oct, [facility] [address] [id number], [place] [address]- 7547 Mar, [facility] [address] [id number], [place] [address]- 4615 Feb, [facility] [address] [id number] [place] [address]- 0810 Feb, [facility] [address] [id number], [place] [address]- 1134 16 May, 2009 [facility] [address] [id number] [place] [address]- 8334 Apr, [facility] [address] [facility] [id number], [place] [address] 0216 Mar, [facility] [address] [id number], [place] [address]178 Jan, [facility] [address] [id number], [place] [address]- 2546 Oct, [facility] [address] [id number], [place] [address]- 2796 Jul, [facility] [id number], [place] [address]- 2546 Mar, [facility] [id number], [place] [address] 3758 Feb, [facility] [address] [id number], [place] [address]- 5096 Jan, IMMUNIZATIONS No Known Immunizations SOCIAL HISTORY Never Assessed REASON FOR VISIT Controlled Med Refill PLAN OF CARE VITAL SIGNS MEDICATIONS Medication Instructions Dosage Frequency Start Date End Date Duration Status MS Contin 15 mg Orally every 12 hrs 1 tablet 12h 09 Jul, 2017 28 days Active Lyrica 200 mg Orally [...]
--- OUTSIDE RECORDS SUMMARY | 2018-07-05 12:46 | XMS REPORT ---
Author Author KATHYA FISCHER Organization [facility] Address [address] [place] [address] Care Team Providers Care Weight Checker Name Role Phone KATHYA FISCHER Unavailable PROBLEMS Type Condition ICD9-CM Code [id number] Code Onset Dates Condition Status SNOMED Code Problem Uncontrolled type 2 diabetes mellitus without complication, without long-term current use of insulin E11.65 Active 459112212 Problem Fibromyalgia M79.7 Active 705512660 Problem Arthritis M19.90 Active 1023636 Problem Stress incontinence of urine N39.3 Active 67113947 Problem Obstructive sleep apnea G47.33 Active 02195310 Problem Hypertension, benign I10 Active 16293989 Problem 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 830044209 Problem Neuropathy G62.9 Active 467871433 Problem 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 Active 18774224 Problem Polyneuropathy G62.9 Active 87438200 Problem Type 2 diabetes mellitus with 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 E11.65 Active 110486639 Problem Controlled type 2 diabetes mellitus without complication, without long -term current use of insulin E11.9 Active [id number] ALLERGIES No Information ENCOUNTERS Encounter Location Date Diagnosis [facility] [id number] [place] [address] 80341- 2295 Nov, [facility] [id number] [place] [address] 49984- 2262 Oct, Type 2 diabetes mellitus with 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 E11.65 ; 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 and Neuropathy G62.9 [facility] [id number] [place] [address] 40980- 0470 Oct, [facility] [id number] [place] [address] 16856- 8461 Oct, [facility] [id number] [place] [address] 60938- 2993 Oct, [facility] [address], [place] [address] 1056 Oct, [facility] [address], [place] [address]- 8375 Oct, [facility] [address], [place] [address] 0195 Oct, [facility] [address], [place] [address] 4924 Oct, [facility] [address], [place] [address] 9395 Sep, [facility] [address], [place] [address]- 9489 Sep, Uncontrolled type 2 diabetes mellitus without complication, without long-term current use of insulin E11.65 [place] [address], [place] [address] 0527 Sep, Hypertension, benign I10 ; Fibromyalgia M79.7 ; Controlled type 2 diabetes mellitus without complication, without long-term current use of insulin E11.9 and Uncontrolled type 2 diabetes mellitus without complication, without long-term current use of insulin E11.65 [place] [address], [place] [address] 7848 Sep, [facility] [id number] [address] 9213 Sep, Uncontrolled type 2 diabetes mellitus without complication, without long-term current use of insulin E11.65 [facility] [address], [place] [address]- 1646 Sep, [facility] [address], [place] [address]- 2121 Sep, [facility] [id number], [place] [address]- 7779 Sep, Uncontrolled type 2 diabetes mellitus without complication, without long-term current use of insulin E11.65 and Fibromyalgia M79.7 [facility] [id number] [place] [address] 09380- 0980 August, [facility] [address] 65347- 4504 August, [facility] [id number] [place] [address] 25406- 0087 August, [facility] [address] 08326- 2308 August, Fibromyalgia M79.7 [facility] [address] 49227- 5987 Jul, Hypertension, benign I10 [facility] [address] 64641- 4995 Jul, Fibromyalgia M79.7 [facility] [address] 01360- 5398 Jul, [facility] [id number] [place] [address] 01801- 1432 Jun, [facility] [id number] [place] [address] 44012- 0948 Jun, Hypertension, benign I10 ; Arthritis M19.90 ; 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.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 and Uncontrolled type 2 diabetes mellitus without complication, without long-term current use of insulin E11.65 [facility] [id number] [place] [address] 39564 -1065 Jun, Acute nasopharyngitis J00 and BMI 50.0-59.9, adult Z68.43 [facility] [address] 21803- 2325 Jun, Fibromyalgia M79.7 [facility] [id number] [place] [address] 32735- 5722 May, [facility] [address] 38928- 4613 May, Fibromyalgia M79.7 [facility] [id number] [place] [address] 23834 2546 Apr, Fibromyalgia M79.7 [facility] [id number] [place] [address] 45474 2546 Apr, [facility] [id number] [place] [address] 73857 2546 Apr, [facility] [id number] [place] [address] 80975 2546 Apr, Arthritis M19.90 [facility] [address] 48763- 6916 Apr, Arthritis M19.90 [facility] [id number] [place] [address] 70976- 5066 Apr, Arthritis M19.90 and Controlled type 2 diabetes mellitus without complication, without long-term current use of insulin E11.9 [facility] [id number] [place] [address] 16398 2546 Apr, [facility] [id number] [place] [address] 65218 2546 Apr, Fibromyalgia M79.7 [facility] [id number] [place] [address] 29136- 1556 Mar, [facility] [id number] [place] [address] 52464 2546 Mar, [facility] [id number] [place] [address] 19777 2546 Mar, Fibromyalgia M79.7 [facility] [id number] [place] [address] 63335 2546 Feb, [facility] [id number] [place] [address] 01726 2546 Feb, [facility] [id number] [place] [address] 79551- 0851 Feb, [facility] [id number] [place] [address] 64925- 0808 Feb, Fibromyalgia M79.7 [facility] [id number] [place] [address] 98688- 3903 Feb, Diabetes type 2, uncontrolled E11.65 and Encounter for immunization Z23 [facility] [address] 91575- 3697 Jan, [facility] [address] 99036- 9612 Jan, Fibromyalgia M79.7 [facility] [address] 19433- 6824 Dec, [facility] [address] 40796- 6114 Dec, Fibromyalgia M79.7 [facility] [id number] [place] [address] 34068- 0079 Nov, [facility] [id number] [place] [address] 97867- 8559 Nov, [facility] [id number] [place] [address] 83415- 3720 Nov, 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 and Polyneuropathy G62.9 [facility] [id number] [place] [address] 17184- 7919 Nov, [facility] [id number] [place] [address] 60400- 7390 Nov, [facility] [id number] [place] [address] 02414- 2187 Oct, Diabetes type 2, uncontrolled E11.65 [facility] [id number] [place] [address] 10356- 3116 Oct, Diabetes type 2, uncontrolled E11.65 ; Polyneuropathy G62.9 and Pain in right wrist M25.531 [facility] [address] [facility] [id number] [address]- 2404 Oct, [facility] [address] [facility] [id number], [place] [address]- 6576 Oct, Pain in left shoulder M25.512 [facility] [address], [place] [address] 2546 Sep, [facility] [id number] [place] [address] 71585 2544 Sep, Pain in left shoulder M25.512 [facility] [address] [facility] [id number] [place] [address] 61113- 0896 Sep, [facility] [id number] [place] [address] 93600- 7217 August, Pain in left shoulder M25.512 [facility] [id number], [place] [address]- 4191 Jul, [facility] [address], [place] [address]- 2893 Jul, [facility] [id number] [place] [address] 91040- 2247 Jul, Pain in left shoulder M25.512 [facility] [address], [place] [address]- 2626 Jun, [facility] [id number], [place] [address]- 9500 Jun, [facility] [id number] [address]- 6249 Jun, Diabetes type 2, uncontrolled E11.65 ; Fibromyalgia M79.7 and Arthritis M19.90 [facility] [id number], [place] [address]- 4626 Jun, Pain in left shoulder M25.512 [facility] [id number] [place] [address] 82277- 9338 May, [facility] [address], [place] [address]- 2739 May, Diabetes type 2, controlled E11.9 [facility] [address] [facility] [id number], [place] [address]- 0833 17 May, 2016 [facility] [id number] [place] [address] 22388- 6190 15 May, 2016 Uncontrolled type 2 diabetes mellitus without complication, without long-term current use of insulin E11.65 [facility] [address] [place] [address] 86912- 4121 15 May, 2016 Pain in left shoulder M25.512 [facility] [id number] [place] [address] 26920- 8389 03 May, 2016 Diabetes type 2, controlled E11.9 and Uncontrolled type 2 diabetes mellitus without complication, without long-term current use of insulin E11.65 [facility] [address], [place] [address]- 0698 Apr, [facility] [id number] [place] [address] 57284- 0390 Apr, [facility] [address], [place] [address]- 7489 Mar, [facility] [address], [place] [address]- 9199 Mar, [facility] [address], [place] [address]- 3793 Mar, [facility] [address], [place] [address]- 0175 Feb, [facility] [address] [address] Feb, Dental examination Z01.20 [facility] [address], [place] [address]- 5735 Jan, [facility] [address] [id number] [place] [address]- 0002 Dec, [facility] [address] [id number] [place] [address]- 3116 Dec, [facility] [address] [id number] [place] [address]- 4296 Dec, [facility] [address] [facility] [id number] [place] [address]- 1443 Dec, Diabetes type 2, controlled E11.9 [facility] [address] [id number] [place] [address]- 9306 Nov, [facility] [address] [facility] [id number] [place] [address]- 6115 Nov, [facility] [address] [facility] [id number] [place] [address]- 8891 Nov, [facility] [address] [facility] [id number] [place] [address]- 9120 Nov, [facility] [address] [facility] [id number] [place] [address]- 5434 Oct, [facility] [address] [facility] [id number] [place] [address]- 7968 Oct, [facility] [address] [facility] [id number] [place] [address]- 4656 Oct, [facility] [address] [facility] [id number] [place] [address]- 7069 Sep, [facility] [address] [id number] [place] [address]- 7328 Sep, Diabetes type 2, controlled E11.9 [facility] [address] [facility] [id number] [place] 6876 Sep, Diabetes type 2, controlled E11.9 [facility] [address] [facility] [id number] [place] [address]- 2853 August, [facility] [id number] [place] [address] 61068- 5090 August, [facility] [id number] [place] [address] 96093- 2554 August, Type 2 diabetes mellitus without complication E11.9 and Pain in left shoulder M25.512 [facility] [address] 21976- 5950 Jul, [facility] [address] 98442- 8536 Jul, Diabetes type 2, controlled E11.9 and Hypertension, benign I10 [facility] [address] 05688- 1877 Jun, [facility] [address] 93358- 9025 Jun, [facility] [id number] [place] [address] 28970- 0409 Jun, Diabetes 250.00 [facility] [id number] [place] [address] 14467- 9395 Jun, [facility] [id number] [place] [address] 13255- 0392 May, Diabetes type 2, uncontrolled E11.65 [facility] [id number] [place] [address] 57897- 6402 May, [facility] [id number] [place] [address] 87253- 0633 Apr, Type 2 diabetes mellitus without complication E11.9 [facility] [id number] [place] [address] 97759- 8774 Apr, Encounter for immunization Z23 [facility] [id number] [place] [address] 31336- 3021 Apr, [facility] [id number] [place] [address] 66065- 8126 Mar, [facility] [id number], [place] [address]- 0175 Mar, [facility] [address]- 0442 Mar, [facility] [address], [place] [address]- 6044 Feb, [facility] [id number] [place] [address] 472988- 5923 Jan, [facility] [id number] [place] [address] 35912- 3051 Jan, [facility] [address], [place] [address]- 0623 Jan, [facility] [address] [place] [address] 04149- 4629 Dec, Diabetes 250.00 and COPD (chronic obstructive pulmonary disease) 496 [facility] [address], [place] [address]- 7687 Dec, [facility] [address], [place] [address]- 6222 Dec, [facility] [address], [place] [address]- 1923 Nov, [facility] [address], [place] [address]- 7381 Oct, Diabetes 250.00 [facility] [id number], [place] [address]- 3613 Sep, [facility] [address], [place] [address]- 1266 Sep, [facility] [address], [place] [address]- 2436 Sep, [facility] [address], [place] [address]- 9180 Sep, Diabetes 250.00 [facility] [address], [place] [address]- 8944 Sep, [facility] [address] [place] [address] 69828- 4947 Sep, [facility] [id number] 9213 August, Hypertension, essential, benign 401.1 ; Coronary atherosclerosis of [place] coronary artery 414.01 and Diabetic neuropathy associated with type 2 diabetes mellitus 250.60 [facility] [address], [place] [address]- 7199 Jul, [facility] [id number] [place] [address] 98468- 6143 Jul, [facility] [id number] [place] [address] 90307- 1849 Jul, [facility] [address], [place] [address]- 0038 Jun, [facility] [address], [place] [address]- 9981 Jun, [facility] [address], [place] [address]- 7253 Jun, [facility] [address], [place] [address]- 3652 Jun, [facility] [address], [place] [address]- 5764 Jun, [facility] [address]- 4687 May, [facility] [address], [place] [address]- 7450 May, [facility] [address], [place] [address]- 8845 May, [facility] [place] [facility] [address] [id number] [place] [address]- 8919 May, 2014 [facility] [place] [facility] [address] [id number] [place] [address]- 9427 May, 2014 [facility] [place] [facility] [address] [id number] [place] [address]- 2877 May, [facility] [place] [facility] [address] [id number] [place] [address]- 2127 May, [facility] [place] [facility] [address] [id number] [place] [address]- 9089 Apr, [facility] [place] [facility] [address] [id number] [place] [address]- 4512 Apr, [facility] [place] [facility] [address] [id number] [place] [address]- 6315 Apr, [facility] [place] [facility] [address] [id number] [place] [address]- 7982 Apr, [facility] [place] [facility] [address] [id number] [place] [address]- 1619 Mar, [facility] [place] [facility] [address] [id number] [place] [address]- 3347 Mar, [facility] [place] [facility] [address] [id number] [place] [address]- 9934 Mar, [facility] [place] [facility] [address] [id number] [place] [address]- 9023 Mar, [facility] [place] [facility] [address] [id number] [place] [address]- 5917 Feb, [facility] [place] [facility] [address] [id number] [place] [address]- 2235 Feb, [facility] [place] [facility] [address] [id number] [place] [address]- 5871 Feb, [facility] [place] [facility] [address] [id number] [place] [address]- 6829 Feb, [facility] [place] [facility] [address] [id number] [place] [address]- 3999 Feb, [facility] [place] [facility] [address] [id number] [place] [address]- 4205 Feb, [facility] [place] [facility] [address] [id number] [place] [address]- 1466 Feb, [facility] [place] [facility] [address] [id number] [place] [address]- 7279 Jan, [facility] [place] [facility] [address] [id number] [place] [address]- 0154 Jan, [facility] [place] [facility] [address] [id number] [place] [address]- 117[address] Dec, [facility] [place] [facility] [address] [id number] [place] [address] Dec, [facility] [place] [facility] [address] [id number] [place] [address] Dec, [facility] [place] [facility] [address] [id number] [place] [address] Dec, [facility] [place] [facility] [address] [id number] [place] [address] Dec, [facility] [place] [facility] [address] [id number] [place] [address] Dec, [facility] [place] [facility] [address] [id number] [place] [address] Dec, [facility] [place] [facility] [address] [id number] [place] [address] Dec, [facility] [place] [facility] [address] [id number] [place] [address] Nov, [facility] [place] [facility] [address] [id number] [place] [address] Nov, [facility] [place] [facility] [address] [id number] [place] [address] Nov, [facility] [place] [facility] [address] [id number] [place] [address] Nov, [facility] [place] [facility] [address] [id number] [place] [address] Oct, [facility] [place] [facility] [address] [id number] [place] [address] Oct, [facility] [place] [facility] [address] [id number] [place] [address] Oct, [facility] [place] [facility] [address] [id number] [place] [address] Oct, [facility] [place] [facility] [address] [id number] [place] [address] Oct, [facility] [place] [facility] [address] [id number] [place] [address] Oct, [facility] [place] [facility] [address] [id number] [place] [address] Oct, [facility] [place] [facility] [address] [id number] [place] [address] Oct, [facility] [place] [facility] [address] [id number] [place] [address] Sep, [facility] [place] [facility] [address] [id number] [place] [address] Sep, [facility] [place] [facility] [address] [id number] [place] [address] August, [facility] [place] [facility] [address] [id number] [place] [address] 39[address] August, [facility] [place] [facility] [address] [id number] [place] [address] Jul, [facility] [place] [facility] [address] [id number] [place] [address] Jul, [facility] [address] [id number] [place] [address] Jul, [facility] [place] [facility] [address] [id number] [place] [address]- [address] Jul, [facility] [place] [facility] [address] [id number] [place] [address] Jul, [facility] [place] [facility] [address] [id number] [place] [address] Jul, [facility] [place] [facility] [address] [id number] [place] [address] Jul, [facility] [place] [facility] [address] [id number] [place] [address] Jul, [facility] [place] [facility] [address] [id number] [place] [address] Jun, [facility] [place] [facility] [address] [id number] [place] [address] Jun, [facility] [place] [facility] [address] [id number] [place] [address] Jun, [facility] [place] [facility] [address] [id number] [place] [address] Jun, [facility] [place] [facility] [address] [id number] [place] [address] May, [facility] [place] [facility] [address] [id number] [place] [address] May, [facility] [place] [facility] [address] [id number] [place] [address] Apr, [facility] [place] [facility] [address] [id number] [place] [address] Apr, [facility] [place] [facility] [address] [id number] [place] [address] Mar, [facility] [place] [facility] [address] [id number] [place] [address] 20 Mar, 2013 [facility] [place] [facility] [address] [id number] [place] [address]- [address] 18 Mar, 2013 [facility] [place] [facility] [address] [id number] [place] [address]- [address] 18 Mar, 2013 [facility] [place] [facility] [address] [id number] [place] [address]- [address] 18 Mar, 2013 [facility] [place] [facility] [address] [id number] [place] [address] 18 Mar, 2013 [facility] [place] [facility] [address] [id number] [place] [address] Feb, [facility] [place] [facility] [address] [id number] [place] [address] Feb, [facility] [place] [facility] [address] [id number] [place] [address] Feb, [facility] [place] [facility] [address] [id number] [place] [address] 486[address] Feb, [facility] [place] [facility] [address] [id number] [place] [address] 18 Feb, 2013 [facility] [place] [facility] [address] [facility] [id number] [place] [address] 2890 18 Feb, 2013 [facility] [place] [facility] [address] [id number] [place] [address] 0[address] 12 Feb, 2013 [facility] [place] [facility] [address] [id number], [place] [address] 12 Feb, 2013 [facility] [place] [facility] [address] [id number], [place] [address] 15 Jan, 2013 [facility] [place] [facility] [address] [id number], [place] [address] 15 Jan, 2013 [facility] [place] [facility] [address] [facility] [id number], [place] [address] 14 Jan, 2013 [facility] [place] [facility] [address] [id number] [place] [address] 5086 14 Jan, 2013 [facility] [place] [facility] [address] [id number] [place] [address] 4[address] 18 Dec, 2012 [facility] [place] [facility] [address] [id number] [place] [address] 3961 Dec, [facility] [place] [facility] [address] [id number] [place] [address] 2872 Dec, [facility] [place] [facility] [address] [id number] [place] [address] Nov, [facility] [place] [facility] [address] [id number] [place] [address] 4746 Nov, [facility] [place] [facility] [address] [id number] [place] [address] 8881 Oct, [facility] [place] [facility] [address] [id number] [place] [address] 7765 Oct, [facility] [place] [facility] [address] [id number] [place] [address] 8103 Oct, [facility] [place] [facility] [address] [id number] [place] [address] 6073 Sep, [facility] [place] [facility] [address] [id number] [place] [address] 4858 Sep, [facility] [place] [facility] [address] [id number] [place] [address] 1506 Sep, [facility] [place] [facility] [address] [id number] [place] [address] 1294 Sep, [facility] [place] [facility] [address] [id number] [place] [address] 3[address] Sep, [facility] [place] [facility] [address] [id number] [place] [address]- 9456 05 Sep, 2012 [facility] [place] [facility] [address] [id number] [place] [address] 8110 August, [facility] [address] [id number] [place] [address] 4494 August, [facility] [address] [id number] [place] [address] August, [facility] [address] [id number] [place] [address] August, [facility] [address] [id number] [place] [address] 1368 August, [facility] [address] [id number] [place] [address] 7272 August, [facility] [address] [id number] [place] [address] August, [facility] [address] [id number] [place] [address] 8843 Jul, [facility] [address] [id number] [place] [address] 8678 Jul, [facility] [address] [id number] [place] [address] 9971 Jun, [facility] [address] [id number] [place] [address] 8557 Jun, [facility] [address] [id number] [place] [address] 1527 May, [facility] [place] [facility] [address] [id number] [place] [address] 9961 May, [facility] [place] [facility] [address] [id number] [place] [address] 9770 Apr, [facility] [place] [facility] [address] [id number] [place] [address] 3290 Mar, [facility] [place] [facility] [address] [id number] [place] [address] Mar, [facility] [address] [id number] [place] [address]- 3608 Mar, [facility] [address] [id number] [place] [address] 6397 Mar, [facility] [place] [facility] [address] [id number] [place] [address] Mar, [facility] [address] [id number] [place] [address] 4963 Mar, [facility] [place] [facility] [address] [id number] [place] [address]- 6968 Feb, [facility] [address] [id number] [place] [address], [place] [address]- 8812 Feb, [facility] [place] [facility] [address] [id number] [place] [address] 3034 Feb, [facility] [place] [facility] [address] [id number] [place] [address]- 5348 Feb, [facility] [address] [id number] [place] [address] 5440 Feb, [facility] [place] [facility] [address] [facility] [id number] [place] [address]- 9653 Feb, [facility] [address] [facility] [id number] [place] [address]- 2515 Feb, [facility] [place] [facility] [address] [id number] [place] [address]- 6411 Feb, [facility] [place] [facility] [address] [id number], [place] [address]687 Jan, [facility] [place] [facility] [address] [id number] [place] [address] Jan, [facility] [place] [facility] [address] [id number] [place] [address]- 2111 Dec, [facility] [place] [facility] [address] [id number] [place] [address]- 8091 Dec, [facility] [place] [facility] [address] [id number] [place] [address]- 0367 Dec, [facility] [place] [facility] [address] [id number] [place] [address]- 2806 Dec, [facility] [place] [facility] [address] [id number] [place] [address]- 5379 Dec, [facility] [place] [facility] [address] [id number] [place] [address]- 9204 Nov, [facility] [place] [facility] [address] [id number] [place] [address]- 5874 Oct, [facility] [place] [facility] [address] [id number] [place] [address]- 3001 Oct, [facility] [place] [facility] [address] [id number] [place] [address]- 1997 Sep, [facility] [place] [facility] [address] [id number] [place] [address]- 5542 Sep, [facility] [place] [facility] [address] [id number] [place] [address]- 7816 Sep, [facility] [place] [facility] [address] [id number] [place] [address]- 3821 Sep, [facility] [place] [facility] [address] [id number] [place] [address]- 1857 Sep, [facility] [place] [facility] [address] [id number], [place] [address]- 7849 Sep, [facility] [place] [facility] [address] [id number] [place] [address]- 6341 Sep, [facility] [place] [facility] [address] [id number] [place] [address]- 9076 Sep, [facility] [place] [facility] [address] [id number] [place] [address]- 8007 August, [facility] [place] [facility] [address] [id number], [place] [address]- 3346 August, [facility] [address] [id number] [place] [address]- 3256 August, [facility] [address] [id number] [place] [address]- 0086 Jul, [facility] [address] [id number] [place] [address]- 1236 Jul, [facility] [address] [id number] [place] [address]- 4559 Jun, [facility] [address] [id number] [place] [address]- 2456 Jun, [facility] [address] [id number] [place] [address] 2546 Jun, [facility] [address] [id number] [place] [address]- 9576 Jun, [facility] [address] [id number] [place] [address]- 6956 May, [facility] [address] [id number] [place] [address]- 0429 May, [facility] [address] [id number] [place] [address] 8386 Apr, [facility] [address] [id number] [place] [address]- 3736 Apr, [facility] [place] [facility] [address] [id number] [place] [address]- 2546 Apr, [facility] [address] [id number] [place] [address]- 7776 Mar, [facility] [place] [facility] [address] [id number] [place] [address] 2546 Mar, [facility] [address] [id number] [place] [address]- 5946 Mar, [facility] [place] [facility] [address] [id number] [place] [address]- 5811 Feb, [facility] [place] [facility] [address] [id number] [place] [address]- 3900 Feb, [facility] [place] [facility] [address] [id number] [place] [address]- 1975 Feb, [facility] [place] [facility] [address] [id number] [place] [address]- 5051 Feb, [facility] [place] [facility] [address] [id number] [place] [address]- 7872 Jan, [facility] [place] [facility] [address] [id number] [place] [address]- 5848 14 Jan, 2011 [facility] [place] [facility] [address] [id number] [place] [address]- 9757 Jan, [facility] [place] [facility] [address] [id number] [place] [address]- 8324 Dec, [facility] [place] [facility] [address] [id number] [place] [address]- 5756 Oct, [facility] [place] [facility] [address] [id number] [place] [address]- 4166 Mar, [facility] [place] [facility] [address] [id number] [place] [address]- 3278 Feb, [facility] [place] [facility] [address] [id number] [place] [address]- 6874 Feb, [facility] [place] [facility] [address] [id number] [place] [address]- 0822 16 May, 2009 [facility] [place] [facility] [address] [id number] [place] [address]- 9852 Apr, [facility] [place] [facility] [address] [id number] [place] [address]- 5878 29 Mar, 2009 [facility] [place] [facility] [address] [id number], [place] [address]- 2336 Jan, [facility] [address] [facility] [id number], [place] [address]- 2546 Oct, [facility] [address] [id number], [place] [address] 2546 Jul, [facility] [address] [id number], [place] [address] 2546 Mar, [facility] [address] [id number], [place] [address]- 2546 Feb, [facility] [address] [facility] [id number], [place] [address] 2546 Jan, IMMUNIZATIONS No Known Immunizations SOCIAL HISTORY Never Assessed REASON FOR VISIT Question PLAN OF CARE VITAL SIGNS MEDICATIONS Unknown [...]
--- OUTSIDE RECORDS SUMMARY | 2018-07-05 12:47 | XMS REPORT ---
Author Author KATHYA FISCHER Organization [facility] Address [address] [place] [address] Care Team Providers Care Social Science Manager Name Role Phone KATHYA FISCHER Unavailable PROBLEMS Type Condition ICD9-CM Code GCD08-HG Code Onset Dates Condition Status SNOMED Code Problem Stress incontinence of urine N39.3 Active 95300399 Problem Hypertension, benign I10 Active 64674343 Problem Obstructive sleep apnea G47.33 Active 66214814 Problem Controlled type 2 diabetes mellitus without complication, without long -term current use of insulin E11.9 Active 585589115 Problem 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 Active 35658773 Problem Arthritis M19.90 Active 7689861 Problem Uncontrolled type 2 diabetes mellitus without complication, without long-term current use of insulin E11.65 Active 149852121 Problem Polyneuropathy G62.9 Active 85914256 Problem Fibromyalgia M79.7 Active 960270850 ALLERGIES Substance Reaction Event Type Date Status Zinc Unknown Drug Allergy Jun, Active Lasix Unknown Drug Allergy Jun, Active Cozaar Unknown Drug Allergy Jun, Active SulfADIAZINE Unknown Drug Allergy Jun, Active Nabumetone Unknown Drug Allergy Jun, Active Androgel Unknown Drug Allergy Jun, Active equal Unknown Non Drug Allergy Jun, Active horseradish Unknown Non Drug Allergy Jun, Active chromates Unknown Non Drug Allergy Jun, Active latex rash Non Drug Allergy Jun, Active Cyclobenzaprine Hcl Oral Tablet 10 10 Mg Tablet dc'd potential for ss Non Drug Allergy Jun, Active Wool itching Non Drug Allergy Jun, Active rhubarb Unknown Non Drug Allergy Jun, Active raspberry Unknown Non Drug Allergy Jun, Active sweet and low Unknown Non Drug Allergy Jun, Active ENCOUNTERS Encounter Location Date Diagnosis [facility] [address] [facility] [id number] [address] Oct, [facility] [id number] [place] [address] 9987 Oct, [facility] [id number] [place] [address] 7702 Oct, [facility] [address] [facility] [id number] [place] [address] 2983 Oct, [facility] [address] [address] [address] Oct, [facility] [address] [place] [address] 4[address] Oct, [facility] [address] [place] [address] 7219 Oct, [facility] [id number] [place] [address]- 3591 Oct, [facility] [address] [address]- [address] Sep, [facility] [address] [address]- 0247 Sep, Uncontrolled type 2 diabetes mellitus without complication, without long-term current use of insulin E11.65 [facility] [address] [address] Sep, Hypertension, benign I10 ; Fibromyalgia M79.7 ; Controlled type 2 diabetes mellitus without complication, without long-term current use of insulin E11.9 and Uncontrolled type 2 diabetes mellitus without complication, without long-term current use of insulin E11.65 [facility] [address] [address] Sep, [facility] [address] [address]- 6751 Sep, Uncontrolled type 2 diabetes mellitus without complication, without long-term current use of insulin E11.65 [facility] [address] [address]- 5763 Sep, [facility] [id number] [place] [address] 81591- 3990 Sep, [facility] [id number] [place] [address] 27843- 4493 Sep, Uncontrolled type 2 diabetes mellitus without complication, without long-term current use of insulin E11.65 and Fibromyalgia M79.7 [facility] [id number] [place] [address] 75177- 2728 August, [facility] [address] [address]- 5391 August, [facility] [address] [address]- 8757 August, [facility] [address] [address]- 1813 August, Fibromyalgia M79.7 [facility] [address] [address]- 8157 Jul, Hypertension, benign I10 [facility] [id number] [place] [address] 62606- 9154 Jul, Fibromyalgia M79.7 [facility] [id number] [place] [address] 12215- 4855 Jul, [facility] [id number] [place] [address] 08362- 6201 Jun, [facility] [id number] [place] [address] 01635- 3512 Jun, Hypertension, benign I10 ; Arthritis M19.90 ; 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 and Uncontrolled type 2 diabetes mellitus without complication, without long-term current use of insulin E11.65 [facility] [id number] [place] [address] 98906 -2355 Jun, Acute nasopharyngitis J00 and BMI 50.0-59.9, adult Z68.43 [facility] [address] [place] [address]- 0484 Jun, Fibromyalgia M79.7 [facility] [id number] [place] [address] 25038- 5306 May, [facility] [id number] [place] [address] 52856 2546 May, Fibromyalgia M79.7 [facility] [id number] [place] [address] 70964 2546 Apr, Fibromyalgia M79.7 [facility] [id number] [place] [address] 44474- 8780 Apr, [facility] [id number] [place] [address] 43069- 9428 Apr, [facility] [id number] [place] [address] 14954- 4983 Apr, Arthritis M19.90 [facility] [id number] [place] [address] 55209- 7685 Apr, Arthritis M19.90 [facility] [id number] [place] [address] 82681- 7589 Apr, Arthritis M19.90 and Controlled type 2 diabetes mellitus without complication, without long-term current use of insulin E11.9 [facility] [address] [place] [address] 56851- 5176 Apr, [facility] [id number] [place] [address] 39960 2546 Apr, Fibromyalgia M79.7 [facility] [address] [address]- 3386 Mar, [facility] [id number] [place] [address] 29781- 2016 Mar, [facility] [address] [address]- 5256 Mar, Fibromyalgia M79.7 [facility] [id number] [place] [address] 48677- 6381 Feb, [facility] [address] [address]199- 7207 Feb, [facility] [id number] [place] [address] 20221- 2461 Feb, [facility] [address] 9[address]- 3680 Feb, Fibromyalgia M79.7 [facility] [address] 23115- 5633 Feb, Diabetes type 2, uncontrolled E11.65 and Encounter for immunization Z23 [facility] [id number] [place] [address] 27313- 1134 Jan, [facility] [address] 57771- 3706 Jan, Fibromyalgia M79.7 [facility] [id number] [place] [address] 64927- 9352 Dec, [facility] [id number] [place] [address] 88449- 2767 Dec, Fibromyalgia M79.7 [facility] [id number] [place] [address] 84892- 6802 Nov, [facility] [id number] [place] [address] 54645- 0977 Nov, [facility] [id number] [place] [address] 57648- 8428 Nov, 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 and Polyneuropathy G62.9 [facility] [id number] [place] [address] 67679- 4797 Nov, [facility] [id number] [place] [address] 35890- 9029 Nov, [facility] [address] [address]- 5516 Oct, Diabetes type 2, uncontrolled E11.65 [facility] [id number] [place] [address] 81543- 8399 Oct, Diabetes type 2, uncontrolled E11.65 ; Polyneuropathy G62.9 and Pain in right wrist M25.531 [facility] [id number] [place] [address] 00751- 5726 Oct, [facility] [id number] [place] [address] 63834 2540 Oct, Pain in left shoulder M25.512 [facility] [id number] [place] [address] 84904- 3546 Sep, [facility] [id number] [place] [address] 69752- 7248 Sep, Pain in left shoulder M25.512 [facility] [id number] [place] [address] 64606- 2958 Sep, [facility] [id number] [place] [address] 68248- 4341 August, Pain in left shoulder M25.512 [facility] [address] [address]- 7776 Jul, [facility] [address] [address]- 8446 Jul, [facility] [address] [address]- 6615 Jul, Pain in left shoulder M25.512 [facility] [address] [address]- 4816 Jun, [facility] [address] [address]- 2546 Jun, [facility] [address] [address]- 4037 Jun, Diabetes type 2, uncontrolled E11.65 ; Fibromyalgia M79.7 and Arthritis M19.90 [facility] [id number] [place] [address] 51041- 8076 Jun, Pain in left shoulder M25.512 [facility] [id number] [place] [address] 17483- 4076 May, [facility] [id number] [place] [address] 08516- 2706 May, Diabetes type 2, controlled E11.9 [facility] [id number] [place] [address] 43879- 0596 May, [facility] [id number] [place] [address] 21059- 9430 May, Uncontrolled type 2 diabetes mellitus without complication, without long-term current use of insulin E11.65 [facility] [id number] [place] [address] 82211- 5911 May, Pain in left shoulder M25.512 [facility] [address] [place] [address] 26417- 1698 May, Diabetes type 2, controlled E11.9 and Uncontrolled type 2 diabetes mellitus without complication, without long-term current use of insulin E11.65 [facility] [address] [address]- 0124 Apr, [facility] [id number] [place] [address] 38291- 8396 Apr, [facility] [address] [address]- 9416 Mar, [facility] [id number] [place] [address] 89559- 1283 Mar, [facility] [address] 0525 Mar, [facility] [id number] [place] [address] 10786- 3700 Feb, [facility] [address] [id number] [place] [address] Feb, Dental examination Z01.20 [facility] [address] [id number] [place] 7453 Jan, [facility] [address] [id number] [place] [address]- 0530 14 Dec, 2015 [facility] [address] [id number] [place] 7782 Dec, [facility] [address] [id number] [place] 4837 Dec, [facility] [address] [id number] [place] [address]- 7237 Dec, Diabetes type 2, controlled E11.9 [facility] [address] [id number] [place] [address]- 4860 Nov, [facility] [address] [id number] [place] [address]- 5752 Nov, [facility] [address] [id number] [place] [address]- 6240 Nov, [facility] [address] [facility] [id number] [place] [address]- 4331 Nov, [facility] [address] [id number] [place] [address]- 3975 Oct, [facility] [address] [id number] [place] [address]- 0975 Oct, [facility] [address] [facility] [id number] [place] 6803 Oct, [facility] [address] [id number] [place] 5519 Sep, [facility] [address] [facility] [id number] [place] [address]- 3166 Sep, Diabetes type 2, controlled E11.9 [facility] [address] [place] [address]- 1979 Sep, Diabetes type 2, controlled E11.9 [facility] [address] [facility] [id number] [place] [address]- 5796 August, [facility] [id number] [place] [address] 49154- 3452 August, [facility] [address] [place] [address], [place] [address]- 8166 August, Type 2 diabetes mellitus without complication E11.9 and Pain in left shoulder M25.512 [facility] [id number] [place] [address]- 6845 Jul, [facility] [id number] [place] [address], [place] [address]- 0438 Jul, Diabetes type 2, controlled E11.9 and Hypertension, benign I10 [facility] [address] [place] [address]- 4823 Jun, [facility] [address] [place] [address]- 4871 Jun, [facility] [address] [address]- 8075 Jun, Diabetes 250.00 [facility] [address] [address]- 6984 Jun, [facility] [address] [address]- 1633 May, Diabetes type 2, uncontrolled E11.65 [facility] [address] [place] [address]- 2826 May, [facility] [address] [address]- 1389 Apr, Type 2 diabetes mellitus without complication E11.9 [facility] [address] [address]- 7658 15 Apr, 2015 Encounter for immunization Z23 [facility] [id number] [place] [address], [place] [address]- 1197 Apr, [facility] [id number] [place] [address], [place] [address]- 8150 Mar, [facility] [id number] [place] [address], [place] [address]- 1758 Mar, [facility] [id number] [place] [address], [place] [address]- 7392 Mar, [facility] [id number] [place] [address], [place] [address]- 0271 Feb, [facility] [id number] [place] [address], [place] [address]- 0282 Jan, [facility] [id number] [place] [address] 60244- 4128 Jan, [facility] [id number] [place] [address] 44584- 8434 Jan, [facility] [id number] [place] [address] 67705- 5985 Dec, Diabetes 250.00 and COPD (chronic obstructive pulmonary disease) 496 [facility] [address] [place] [address] 42239- 4105 Dec, [facility] [id number] [place] [address] 04964- 7055 Dec, [facility] [address] [address]- 9227 Nov, [facility] [address] [address]- 9671 Oct, Diabetes 250.00 [facility] [address] [place] [address]- 9505 Sep, [facility] [address] [facility] [id number] [place] [address]- 7378 Sep, [facility] [address] [address]- 3100 Sep, [facility] [address] [address]- 1758 Sep, Diabetes 250.00 [facility] [id number] [place] [address] 80311- 7480 Sep, [facility] [address] [address]- 7404 Sep, [facility] [id number] [place] [address] 81447- 3799 August, Hypertension, essential, benign 401.1 ; Coronary atherosclerosis of [place] coronary artery 414.01 and Diabetic neuropathy associated with type 2 diabetes mellitus 250.60 [facility] [address] [address]- 8687 Jul, [facility] [address] [address]- 6771 Jul, [facility] [address] [address]- 7706 Jul, [facility] [address] [address]- 8749 Jun, [facility] [address] [address]- 2765 Jun, [facility] [id number] [address]- 0259 Jun, [facility] [address]- 8038 Jun, [facility] [address] [address]- 9445 Jun, [facility] [address] [address]- 2847 May, 2014 [facility] [place] [facility] [address] [id number] [place] [address]- 7273 May, 2014 [facility] [place] [facility] [address] [id number] [place] [address]- 2026 May, 2014 [facility] [place] [facility] [address] [facility] [id number] [place] [address]- 3346 May, 2014 [facility] [place] [facility] [address] [id number] [place] [address]- 4686 May, 2014 [facility] [place] [facility] [address] [id number] [place] [address]- 5714 May, 2014 [facility] [place] [facility] [address] [facility] [id number] [place]- 7277 May, 2014 [facility] [place] [facility] [address] [facility] [id number] [place] [address]- 8154 Apr, [facility] [place] [facility] [address] [facility] [id number] [place] [address]- 0018 Apr, [facility] [place] [facility] [address] [facility] [id number] [place] [address]- 5912 Apr, [facility] [place] [facility] [address] [facility] [id number] [place] [address]- 7565 Apr, [facility] [place] [facility] [address] [facility] [id number] [place] [address]- 0084 Mar, [facility] [place] [facility] [address] [id number] [place] [address]- 4896 Mar, [facility] [place] [facility] [address] [facility] [id number] [place] [address]- 5659 Mar, [facility] [place] [facility] [address] [facility] [id number] [place] [address]- 9800 Mar, [facility] [place] [facility] [address] [facility] [id number] [place] [address]- 2424 Feb, [facility] [place] [facility] [address] [id number] [place] [address]- 1497 Feb, [facility] [place] [facility] [address] [id number] [place] [address]- 4528 Feb, [facility] [place] [facility] [address] [id number] [place] [address]- 0896 Feb, [facility] [place] [facility] [address] [id number] [place] [address]- 5387 Feb, [facility] [place] [facility] [address] [id number] [place] [address]- 7422 Feb, [facility] [place] [facility] [address] [id number] [place] [address]- 2254 Feb, [facility] [place] [facility] [address] [id number] [place] [address]- 3824 Jan, [facility] [place] [facility] [address] [id number] [place] [address]- 3953 Jan, [facility] [place] [facility] [address] [id number] [place] [address]- 9877 Dec, [facility] [place] [facility] [address] [id number] [place] [address]- 2548 Dec, [facility] [place] [facility] [address] [id number] [place] [address]- 2544 10 Dec, 2013 [facility] [place] [facility] [address] [id number] [place] [address]- 2548 10 Dec, 2013 [facility] [place] [facility] [address] [id number] [place] [address] 2549 04 Sep, 2013 [facility] [place] [facility] [address] [id number] [place] [address] 2546 04 Sep, 2013 [facility] [place] [facility] [address] [id number] [place] [address]- 2544 03 Sep, 2013 [facility] [place] [facility] [address] [id number] [place] [address]- 2543 Dec, [facility] [place] [facility] [address] [id number] [place] [address]- 7822 Nov, [facility] [place] [facility] [address] [id number] [place] [address]- 2766 Nov, [facility] [place] [facility] [address] [id number] [place] [address]- 7906 Nov, [facility] [place] [facility] [address] [id number] [place] [address]- 2739 Nov, [facility] [place] [facility] [address] [id number] [place] [address] Oct, [facility] [place] [facility] [address] [id number] [place] [address] Oct, [facility] [place] [facility] [address] [id number] [place] [address] Oct, [facility] [place] [facility] [address] [id number] [place] [address] Oct, [facility] [place] [facility] [address] [id number] [place] [address] Oct, [facility] [place] [facility] [address] [id number] [place] [address] Oct, [facility] [place] [facility] [address] [id number] [place] [address] Oct, [facility] [place] [facility] [address] [id number] [place] [address] Oct, [facility] [place] [facility] [address] [id number] [place] [address] Sep, [facility] [place] [facility] [address] [id number] [place] [address] Sep, [facility] [place] [facility] [address] [id number] [place] [address] August, [facility] [place] [facility] [address] [id number] [place] [address] August, [facility] [place] [facility] [address] [id number] [place] [address] Jul, [facility] [place] [facility] [address] [id number] [place] [address] Jul, [facility] [place] [facility] [address] [id number] [place] [address] Jul, [facility] [place] [facility] [address] [id number] [place] [address] Jul, [facility] [place] [facility] [address] [id number] [place] [address] Jul, [facility] [place] [facility] [address] [id number] [place] [address] Jul, [facility] [place] [facility] [address] [id number] [place] [address] Jul, [facility] [place] [facility] [address] [id number] [place] [address] Jul, [facility] [place] [facility] [address] [id number] [place] [address] Jun, [facility] [place] [facility] [address] [id number] [place] [address] Jun, [facility] [place] [facility] [address] [id number] [place] [address] Jun, [facility] [place] [facility] [address] [id number] [place] [address] Jun, [facility] [place] [facility] [address] [id number] [place] [address] May, [facility] [place] [facility] [address] [id number] [place] [address] May, [facility] [place] [facility] [address] [id number] [place] [address] Apr, [facility] [address] [id number] [place] [address] Apr, [facility] [place] [facility] [address] [id number] [place] [address] Mar, [facility] [place] [facility] [address] [id number] [place] [address] Mar, [facility] [place] [facility] [address] [id number] [place] [address] Mar, [facility] [place] [facility] [address] [address] [id number] [place] [address] Mar, [facility] [place] [facility] [address] [id number] [place] [address] Mar, [facility] [place] [facility] [address] [id number] [place] [address] Mar, [facility] [place] [facility] [address] [id number] [place] [address] Feb, [facility] [place] [facility] [address] [id number] [place] [address] Feb, [facility] [place] [facility] [address] [id number] [place] [address] Feb, [facility] [place] [facility] [address] [id number] [place] [address] Feb, [facility] [place] [facility] [address] [id number] [place] [address] Feb, [facility] [place] [facility] [address] [id number] [place] [address] Feb, [facility] [place] [facility] [address] [id number] [place] [address] Feb, [facility] [place] [facility] [address] [id number] [place] [address] Feb, [facility] [place] [facility] [address] [id number] [place] [address] 15 Jan, 2013 [facility] [place] [facility] [address] [id number] [place] [address] 15 Jan, 2013 [facility] [place] [facility] [address] [id number] [place] [address] 14 Jan, 2013 [facility] [place] [facility] [address] [id number] [place] [address]44 14 Jan, 2013 [facility] [place] [facility] [address] [id number] [place] [address] 18 Dec, 2012 [facility] [place] [facility] [address] [id number] [place] [address] 13 Dec, 2012 [facility] [place] [facility] [address] [id number] [place] [address] 2012 [facility] [place] [facility] [address] [id number] [place] [address]- [address] 23 Nov, 2012 [facility] [place] [facility] [address] [id number] [place] [address] Nov, [facility] [place] [facility] [address] [id number] [place] [address] 16 Oct, 2012 [facility] [place] [facility] [address] [id number] [place] [address]- 7562 05 Oct, 2012 [facility] [place] [facility] [address] [id number] [place] [address] Oct, [facility] [place] [facility] [address] [id number] [place] [address] 7895 28 Sep, 2012 [facility] [place] [facility] [address] [id number] [place] [address]- 2723 26 Sep, 2012 [facility] [place] [facility] [address] [id number] [place] [address] 4462 18 Sep, 2012 [facility] [place] [facility] [address] [id number] [place] [address] 9[address] 13 Sep, 2012 [facility] [place] [facility] [address] [id number] [place] [address] 67[address] Sep, [facility] [address] [id number] [place] [address] Sep, [facility] [place] [facility] [address] [id number] [place] [address] August, [facility] [address] [id number] [place] [address] August, [facility] [address] [id number] [place] [address]79 August, [facility] [address] [id number] [place] [address] 8470 August, [facility] [address] [id number] [place] [address] 3983 August, [facility] [address] [id number] [place] [address] 5[address] August, [facility] [address] [id number] [place] [address] 7149 August, [facility] [address] [id number] [place] [address] 9123 Jul, [facility] [address] [id number] [place] [address] 2453 Jul, [facility] [address] [id number] [place] [address] Jun, [facility] [address] [id number] [place] [address] 287[address] Jun, [facility] [place] [facility] [address] [id number] [place] [address]53 May, [facility] [place] [facility] [address] [id number] [place] [address]76 May, [facility] [place] [facility] [address] [id number] [place] [address]34 Apr, [facility] [place] [facility] [address] [id number] [place] [address] 1761 Mar, [facility] [place] [facility] [address] [id number] [place] [address] 9796 Mar, [facility] [place] [facility] [address] [facility] [id number] [place] [address] 9016 Mar, [facility] [place] [facility] [address] [id number] [place] [address] 2897 Mar, [facility] [place] [facility] [address] [id number] [place] [address] 2467 Mar, [facility] [place] [facility] [address] [id number] [place] [address] 3493 Mar, [facility] [place] [facility] [address] [id number] [place] [address]- 5245 Feb, [facility] [place] [facility] [address] [id number] [place] [address] Feb, [facility] [place] [facility] [address] [id number] [place] [address] 5311 Feb, [facility] [place] [facility] [address] [facility] [id number] [place] [address]- 0594 Feb, [facility] [place] [facility] [address] [id number] [place] [address] 5199 Feb, [facility] [place] [facility] [address] [id number] [place] [address] 6910 Feb, [facility] [place] [facility] [address] [id number] [place] [address] 7892 Feb, [facility] [place] [facility] [address] [facility] [id number] [place] [address] 8722 Feb, [facility] [place] [facility] [address] [facility] [id number] [place] [address]- [address]117 Jan, [facility] [place] [facility] [address] [id number] [place] [address]- 0360 19 Jan, 2012 [facility] [place] [facility] [address] [id number] [place] [address]- 7966 28 Dec, 2011 [facility] [place] [facility] [address] [id number] [place] [address] 2546 19 Dec, 2011 [facility] [place] [facility] [address] [id number] [place] [address] 2546 18 Dec, 2011 [facility] [place] [facility] [address] [id number] [place] [address] 2546 18 Dec, 2011 [facility] [place] [facility] [address] [id number] [place] [address]- 8300 04 Dec, 2011 [facility] [place] [facility] [address] [id number] [place] [address]- 9859 Nov, [facility] [place] [facility] [address] [id number] [place] [address]- 9773 Oct, [facility] [place] [facility] [address] [id number] [place] [address]- 9433 Oct, [facility] [place] [facility] [address] [id number] [place] [address]- 6566 Sep, [facility] [place] [facility] [address] [id number] [place] [address]- 0481 Sep, [facility] [place] [facility] [address] [id number] [place] [address] 2547 Sep, [facility] [place] [facility] [address] [id number] [place] [address] 2540 Sep, [facility] [place] [facility] [address] [id number] [place] [address] 2544 Sep, [facility] [place] [facility] [address] [id number] [place] [address]- 2543 Sep, [facility] [place] [facility] [address] [id number] [place] [address]- 6884 Sep, [facility] [place] [facility] [address] [id number] [place] [address]- 5410 Sep, [facility] [place] [facility] [address] [id number] [place] [address]- 4751 August, [facility] [address] [id number] [place] [address]- 3323 August, [facility] [address] [id number] [place] [address]- 2989 August, [facility] [address] [id number] [place] [address]- 6849 Jul, [facility] [place] [facility] [address] [id number] [place] [address]- 1359 Jul, [facility] [address] [id number] [place] [address]- 1062 Jun, [facility] [address] [id number] [place] [address]- 2045 Jun, [facility] [address] [id number] [place] [address]- 4490 Jun, [facility] [address] [id number] [place] [address]- 9350 Jun, [facility] [place] [facility] [address] [id number] [place] [address]- 2716 May, [facility] [place] [facility] [address] [id number] [place] [address]- 9453 May, [facility] [place] [facility] [address] [id number] [place] [address]- 2386 Apr, [facility] [place] [facility] [address] [id number] [place] [address]- 9796 Apr, [facility] [place] [facility] [address] [id number] [place] [address]- 8296 Apr, [facility] [place] [facility] [address] [id number] [place] [address]- 3422 14 Mar, 2011 [facility] [place] [facility] [address] [id number] [place] [address]- 6169 09 Mar, 2011 [facility] [place] [facility] [address] [id number] [place] [address]- 9267 Mar, [facility] [place] [facility] [address] [facility] [id number] [place] [address]- 8984 Feb, [facility] [place] [facility] [address] [id number] [place] [address]- 4190 Feb, [facility] [place] [facility] [address] [id number] [place] [address]- 5163 Feb, [facility] [place] [facility] [address] [id number] [place] [address]- 5642 Feb, [facility] [place] [facility] [address] [facility] [id number] [place] [address]- 4904 Jan, [facility] [place] [facility] [address] [facility] [id number] [place] [address]- 5095 14 Jan, 2011 [facility] [place] [facility] [address] [facility] [id number] [place] [address]- 2964 Jan, [facility] [place] [facility] [address] [facility] [id number] [place] [address]- 4047 16 Dec, 2010 [facility] [place] [facility] [address] [facility] [id number] [place] [address]- 7166 Oct, [facility] [place] [facility] [address] [facility] [id number] [place] [address]- 4559 Mar, [facility] [place] [facility] [address] [id number] [place] [address]- 5642 Feb, [facility] [place] [facility] [address] [facility] [id number] [place] [address]- 4185 15 Feb, 2010 [facility] [place] [facility] [address] [facility] [id number] [place] [address]- 1379 16 May, 2009 [facility] [place] [facility] [address] [id number] [place] [address]- 6326 Apr, [facility] [id number] [place] [address]- 0681 Mar, [facility] [id number] [place] [address]- 3300 Jan, [facility] [id number] [place] [address]- 8931 Oct, [facility] [id number] [place] [address]- 1034 Jul, [facility] [id number] [place] [address] Mar, [facility] [id number] [place] [address]- 4164 Feb, [facility] [id number] [place] [address] Jan, IMMUNIZATIONS No Known Immunizations SOCIAL HISTORY Never Assessed REASON FOR VISIT Arthritis f/u-----Tiny, Needs contract/[employer] PLAN OF CARE VITAL SIGNS Height 71 in 2017-07-01 Weight 375 lbs 2017-07-01 Temperature 97.3 degrees Fahrenheit 2017-07-01 Heart Rate 80 bpm 2017-07-01 Respiratory Rate 20 2017-07-01 BMI 52.30 kg/m2 2017-07-01 Blood pressure systolic 138 mmHg 2017-07-01 Blood pressure diastolic 72 mmHg 2017-07-01 MEDICATIONS Medication Instructions Dosage Frequency Start Date End Date Duration Status Glucometer as directed Oct, Active Viagra 100 mg Orally Once a day 1 tablet as needed 24h Active Lyrica 200 mg Orally Three times a day 1 capsule 8h 28 days Active Bydureon 2 MG Subcutaneous once weekly 2mg 28 Active Tamsulosin HCl 0.4 MG Orally Once a day 1 capsule 30 minutes after the same meal each day 24h Active Meloxicam 15 MG Orally Once a day 1 tablet 24h Apr, Sep, 30 day(s) Active Metoprolol Tartrate 100 mg 1 tablet with food 12h Active Vitamin D 2000 UNIT Active potassium 1 tab Active GlipiZIDE 5 mg TAKE TWO TABLETS BY MOUTH TWICE DAILY 30 Active Lancets - as directed Oct, Active ProAir HFA 108 (90 Base) MCG/ACT Inhalation every 4 hrs 2 puffs as needed 4h Active Symbicort 160-4.5 MCG/ACT Inhalation Twice a day 2 puff 12h Feb, Active Duloxetine HCl 60 MG Orally 2 times a day 1 capsule 12h 90 days Active Cymbalta 30 MG TAKE ONE CAPSULE BY MOUTH DAILY ALONG WITH DULOXETINE 60 MG Active True Metrix Blood Glucose Test - once a day Active Cyclobenzaprine HCl 10 MG Orally Three times a day 1 tablet 8h Active Aspirin 325 MG Orally Once a day 1 tablet 24h Active Silver Sulfadiazine 1 % Externally Once a day 1 application to affected area 24h Apr, 6 Apr, 2018 30 days Active lidocaine topical 5 %(700 mg/patch) 3 PATCH by Topical route 1 time per day apply on bilateral wrist and left ankle 24h Jan, Active Hydrochlorothiazide 25 MG Orally Once a day 1 tablet 24h 30 Active Amitriptyline HCl 100 MG TAKE ONE TABLET BY MOUTH ONCE DAILY 90 Active Fish Oil 1200 MG Orally Once a day 2 capsule 24h Active Atorvastatin Calcium 40 MG Orally Once a day 1 tablet 24h Active Tylenol Extra Strength 500 mg Orally 3 times a day 2 tablets 8h Active Furosemide 20 mg Orally Once a day 2 tablet in the AM and 1 tablet in PM 24h Active MS Contin 15 mg Orally every 12 hrs 1 tablet 12h Jun, 28 days Active Blood Glucose Test 1 1 test Jul, Active Vitamin B Complex Active RESULTS Name Result Date Reference Range A1C (IN HOUSE) 2017-07-01 A1C IN HOUSE 9.4 4.3 - 5.6 % Previous A1c 10.0 Lot [id number] Exp date 02/2019 PROCEDURES No Known procedures INSTRUCTIONS MEDICATIONS ADMINISTERED [...]
--- NOTE | 2018-07-05 12:48 | ED Respiratory ---
General Chief Complaint: Respiratory Problems Stated Complaint: SOB;MIGRAINE;FEVER Nursing Triage Note: PT AMBULATED TO ROOM 3 W CANE X 2. PT CO OF SOA, STARTED OVER WEEKEND. Source: patient Exam Limitations: no limitations History of Present Illness Date Seen by Provider: Jul 05, 2018 Time Seen by Provider: 12:10 Initial Comments 62-year-old male who presents to the emergency room with complaints of shortness of breath and fevers that started over the weekend. He was seen by home health today for dressing change of his bilateral lower extremity venous stasis wounds and she called Dr. Rodrigues for his fever of 101 oxygen saturation of [address] air [address] Rodrigues's office sent him to the emergency room to be evaluated. He reports generalized weakness over the last 3 days and malaise. Associated Symptoms: fever/chills, shortness of breath Allergies and Home Medications Allergies Coded Allergies: Sulfa (Sulfonamide Antibiotics) (Unverified Allergy, Unknown, 03/21/14) latex (Unverified Allergy, Unknown, 03/21/14) raspberry (Unverified Allergy, Unknown, 03/21/14) zinc oxide (Unverified Allergy, Unknown, 03/21/14) Uncoded Allergies: ARTIFICIAL SWEETNERS (Allergy, Unknown, 03/21/14) Home Medications Acetaminophen 500 Mg Tablet, 1,000 MG PO TID, (Reported) Aspirin 325 Mg Tablet., 325 MG PO DAILY, (Reported) Atorvastatin Calcium 40 Mg Tablet, 40 MG PO HS, (Reported) B Complex with Vitamin C 1 Each Tablet, 1 EACH PO DAILY Prescribed by: HORACE CASAS on 07/05/181827 Budesonide/Formoterol Fumarate 10.2 Gm Hfa.aer.ad, 2 PUFF INH BID, (Reported) Diphenhydramine HCl 25 Mg Capsule, 25 MG PO HS Prescribed by: HORACE CASAS on 07/05/18 183 Doxepin HCl 100 Mg Capsule, 200 MG PO HS, (Reported) Duloxetine HCl 60 Mg Capsule., 60 MG PO DAILY, (Reported) Finasteride 5 Mg Tablet, 5 MG PO DAILY, (Reported) Furosemide 20 Mg Tablet, 20 MG PO TID, (Reported) Glipizide 10 Mg Tablet, 20 MG PO BID, (Reported) TAKES 2 (10MG) TABLETS Hydrochlorothiazide 25 Mg Tablet, 25 MG PO DAILY, (Reported) Lidocaine 1 Each Adh..patch, 2-3 PATCH TOP DAILY, (Reported) Metoprolol Tartrate 100 Mg Tablet, 100 MG PO BID, (Reported) [place]-3S/Dha/Epa/Fish Oil/D3 1 Each Capsule, 1 CAP PO BID, (Reported) Polyethylene Glycol 3350 17 Gm Powd.pack, 17 GM PO DAILY Prescribed by: JOHN BUCIO on 10/05/17 1426 Potassium Chloride 10 Meq Tab.er.prt, 10 MEQ PO BID, (Reported) Pregabalin 200 Mg Capsule, 200 MG PO TID, (Reported) Tizanidine HCl 4 Mg Tablet, 6 MG PO TID PRN for BREAKTHROUGH PAIN, (Reported) Patient Home Medication List Home Medication List Reviewed: Yes Review of Systems Review of Systems Constitutional: see HPI, fever, malaise Past Rnsetsh-Phkomz-Rmllgw Hx Patient Social History Alcohol Use: Denies Use Recreational Drug Use: No Smoking Status: Never a Smoker Type Used: Cigarettes 2nd Hand Smoke Exposure: No Recent Foreign Travel: No Contact w/Someone Who Travel: No Recent Infectious Disease Expo: No Recent Hopitalizations: No Physical Abuse: No Sexual Abuse: No Immunizations Up To Date Tetanus Booster (TDap): Unknown Seasonal Allergies Seasonal Allergies: No Past Medical History Surgeries: No Respiratory: Yes Sleep Apnea, COPD Currently Using CPAP: Yes Cardiac: Yes High Cholesterol, Hypertension Neurological: Yes Neuropathy Genitourinary: No Gastrointestinal: No Musculoskeletal: Yes (CHRONIC GENERALIZED PAIN ) Arthritis, Fibromyalgia Endocrine: Yes (MORBID OBESITY) Diabetes, Insulin dep HEENT: No Cancer: No Psychosocial: No Integumentary: Yes (CHRONIC LEG WOUNDS) Blood Disorders: No Family Medical History Heart Disease, Cancer, CAD Over 55 Years Old, Diabetes, Hypertension, Stroke, Vascular Disease Physical Exam Vital Signs - First Documented 07/05/18 12:05 Temp 99.8 Pulse 89 Resp 28 B/P (MAP) 167/97 (120) Pulse Ox 88 O2 Delivery Room Air O2 Flow Rate 3.00 Capillary Refill : Less Than 3 Seconds Height: 5'10.00" Weight: 392lbs. 1.0oz. 177.293803dd; 51.9 BMI Method:Stated General Appearance: WD/WN, mild distress, obese (truncal obesity) HEENT: PERRL/EOMI Respiratory: chest non-tender, lungs clear, normal breath sounds, no respiratory distress, no accessory muscle use Cardiovascular: normal peripheral pulses, regular rate, rhythm, no edema, no gallop, no JVD, no murmur Gastrointestinal: normal bowel sounds, non tender, soft, no organomegaly, no pulsatile mass Extremities: normal capillary refill; No calf tenderness; other (venous-stasis ulcers to lower extremities bilaterally) Neurologic/Psychiatric: alert, normal mood/affect, oriented x 3 Skin: normal color, warm/dry, other (venous stasis ulcers to lower extremities bilaterally) Focused Exam Lactate Level 07/05/18 12:45: Lactic Acid Level 1.38 Lactic Acid Level Laboratory Tests Test 07/05/18 12:45 Lactic Acid Level 1.38 MMOL/L (0.50-2.00) Progress/Results/Core Measures Suspected Sepsis Recent Fever Within 48 Hours: No Infection Criteria Present: None New/Unexplained Altered Menta: No Sepsis Screen: No Definite Risk SIRS Temperature:99.8 Pulse: 89 Respiratory Rate: 28 Laboratory Tests 07/05/18 12:15: White Blood Count 10.1 Blood Pressure 167 /97 Mean: 120 07/05/18 12:45: Lactic Acid Level 1.38 Laboratory Tests 07/05/18 12:15: Creatinine 1.08, Platelet Count 195, Total Bilirubin 1.2H 07/05/18 13:14: INR Comment 1.5H Results/Orders Lab Results Laboratory Tests Test 07/05/18 12:15 07/05/18 12:45 07/05/18 13:14 Range/Units White Blood Count 10.1 4.3-11.0 10^3/uL Red Blood Count 5.17 4.35-5.85 10^6/uL Hemoglobin 14.0 13.3-17.7 G/DL Hematocrit 44 40-54 % Mean Corpuscular Volume 85 80-99 FL Mean Corpuscular Hemoglobin 27 25-34 PG Mean Corpuscular Hemoglobin Concent 32 32-36 G/DL Red Cell Distribution Width 17.1 H 10.0-14.5 % Platelet Count 195 130-400 10^3/uL Mean Platelet Volume 10.4 7.4-10.4 FL Neutrophils (%) (Auto) 85 H 42-75 % Lymphocytes (%) (Auto) 8 L 12-44 % Monocytes (%) (Auto) 6 0-12 % Eosinophils (%) (Auto) 1 0-10 % Basophils (%) (Auto) 0 0-10 % Neutrophils # (Auto) 8.6 H 1.8-7.8 X 10^3 Lymphocytes # (Auto) 0.8 L 1.0-4.0 X 10^3 Monocytes # (Auto) 0.6 0.0-1.0 X 10^3 Eosinophils # (Auto) 0.1 0.0-0.3 10^3/uL Basophils # (Auto) 0.0 0.0-0.1 10^3/uL Neutrophils % (Manual) 80 % Lymphocytes % (Manual) 11 % Monocytes % (Manual) 8 % Eosinophils % (Manual) 1 % Band Neutrophils % Blood Morphology Comment NORMAL Sodium Level 137 135-145 MMOL/L Potassium Level 4.3 3.6-5.0 MMOL/L Chloride Level 100 98-107 MMOL/L Carbon Dioxide Level 27 21-32 MMOL/L Anion Gap 10 5-14 MMOL/L Blood Urea Nitrogen 17 7-18 MG/DL Creatinine 1.08 0.60-1.30 MG/DL Estimat Glomerular Filtration Rate > 60 BUN/Creatinine Ratio 16 Glucose Level 177 H 70-105 MG/DL Calcium Level 9.6 8.5-10.1 MG/DL Corrected Calcium 9.8 8.5-10.1 MG/DL Total Bilirubin 1.2 H 0.1-1.0 MG/DL Aspartate Amino Transf (AST/SGOT) 21 5-34 U/L Alanine Aminotransferase (ALT/SGPT) 16 0-55 U/L Alkaline Phosphatase 117 40-136 U/L B-Type Natriuretic Peptide 148.7 H <100.0 PG/ML Total Protein 6.7 6.4-8.2 GM/DL Albumin 3.8 3.2-4.5 GM/DL Smear Scan Lactic Acid Level 1.38 0.50-2.00 MMOL/L Prothrombin Time 18.2 H 12.2-14.7 SEC INR Comment 1.5 H 0.8-1.4 Activated Partial Thromboplast Time 31 24-35 SEC D-Dimer 2.37 H 0.00-0.49 UG/ML Micro Results Microbiology 07/05/18 Influenza Types A,B Antigen (EDUARD) - Final, Complete My Orders Orders - SIDNEY CRUZ Cbc With Automated Diff (07/05/18 12:30) Comprehensive Metabolic Panel (07/05/18 12:30) BNP (07/05/18 12:30) Chest 1 View, Ap/Pa Only (07/05/18 12:30) Fibrin Degradation Products (07/05/18 12:30) Ekg Tracing (07/05/18 12:30) O2 (07/05/18 12:30) Saline Lock/Iv-Start (07/05/18 12:30) Monitor-Rhythm Ecg Trace Only (07/05/18 12:30) Sputum Culture (07/05/18 12:30) Urinalysis (07/05/18 12:30) Urine Culture (07/05/18 12:30) Protime With Inr (07/05/18 12:30) Partial Thromboplastin Time (07/05/18 12:30) Saline Lock/Iv-Start (07/05/18 12:30) Vital Signs Adult Sepsis Patie Q15M (07/05/18 12:30) O2 (07/05/18 12:30) Remove Rings In Anticipation O (07/05/18 12:30) Blood Culture (07/05/18 12:30) Lactic Acid Analyzer (07/05/18 12:30) Manual Differential (07/05/18 12:15) Influenza A And B Antigens (07/05/18 13:33) Us Venous Lower Ext Chelly (07/05/18 14:16) Vital Signs/I&O 07/05/18 07/05/18 12:05 12:45 Temp 99.8 Pulse 89 Resp 28 B/P (MAP) 167/97 (120) Pulse Ox 88 94 O2 Delivery Room Air Nasal Cannula O2 Flow Rate 3.00 2.00 Capillary Refill : Less Than 3 Seconds Blood Pressure Mean: 120 Progress Note : Time: 15:50 Progress Note I have discussed the case with Dr. richardson and Dr. Perez and agreed to accept the patient to their services. Dr. Seo recommends dosing the patient with therapeutic Lovenox dosed by pharmacy. The patient agrees with plans for admission. He will be treated with the pneumonia protocol. Diagnostic Imaging Diagonstic Imaging: Xray, Ultrasound Plain Films/CT/US/NM/MRI: chest, leg Comments NAME: KEISHA BECERRIL [facility] REC#: [id number] PT STATUS: REG ER : 1955 PHYSICIAN: SIDNEY CRUZ ADMIT DATE: 07/05/18/ER Signed Date of Exam: 07/05/18 US VENOUS LOWER EXT CHELLY PROCEDURE: US Venous Lower Ext [place]. TECHNIQUE: Multiple Real-time grayscale images were obtained over the lower extremities in various projections bilaterally. Additional duplex Doppler and color Doppler images were also obtained. INDICATION: Shortness of breath. FINDINGS: There is no evidence of a right or left lower extremity DVT. Both lower extremity deep venous systems demonstrate normal compressibility with normal response to augmentation and Valsalva. No fluid collection or mass is seen. IMPRESSION: No evidence of right or left lower extremity DVT. Dictated by: Dictated on workstation # [id number] Dict: 07/05/18 1538 Trans: 07/05/18 1612 Interpreted by: MARIELLE CROWDER MD Electronically signed by: MARIELLE CROWDER MD 07/05/18 1612 NAME: KEISHA BECERRIL [facility] REC#: [id number] PT STATUS: REG ER : 1955 PHYSICIAN: SIDNEY CRUZ ADMIT DATE: 07/05/18/ER Signed Date of Exam: 07/05/18 CHEST 1 VIEW, AP/PA ONLY Indication: Shortness of air. Time of exam: 12:47 PM Correlation is made with prior study from 10/01/2017. The heart is enlarged. There appears to be some atelectasis or infiltrate in the right base. Left lung is clear. Appears to be a small amount of pleural fluid on the right. No pneumothorax. Impression: Cardiomegaly with right basilar infiltrate and small right effusion. Dictated by: Dictated on workstation # [id number] Dict: 07/05/18 1306 Trans: 07/05/18 1537 Interpreted by: MARIELLE CROWDER MD Electronically signed by: MARIELLE CROWDER MD 07/05/18 1537 Reviewed: Reviewed by Me Departure Communication (Admissions) Time/Spoke to Admitting Phy: 15:50 Dr. Seo Time/Spoke to Consulting Phy: 16:06 Dr. Perez Impression Primary Impression: Pneumonia Additional Impressions: Hypoxia possible pulmonary embolism Elevated d-dimer Disposition: ADMITTED INPATIENT Condition: Stable/Unchanged Admissions Decision to Admit Reason: Admit from ER (General) Decision to Admit/Date: Jul 05, 2018 Time/Decision to Admit Time: 15:58 Departure-Patient Inst. Referrals: ÁNGEL SPIVEY MD (PCP) Primary Care Physician KATHYA FISCHER (Family) Primary Care Physician Scripts Diphenhydramine HCl (Diphenhydramine HCl) 25 Mg Capsule 25 MG PO HS for 30 Days, CAP Prov: WESLY SEO MD 07/05/18 B Complex with Vitamin C (Super B Complex-Vitamin C) 1 Each Tablet 1 EACH PO DAILY for 30 Days, TAB Prov: WESLY SEO MD 07/05/18 SIDNEY CRUZ Jul 05, 2018 12:48
--- OUTSIDE RECORDS SUMMARY | 2018-07-05 12:48 | XMS REPORT ---
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 Name Role Phone DORITA SIMMONS Unavailable PROBLEMS Type Condition ICD9-CM Code [id number] Code Onset Dates Condition Status SNOMED Code Problem Stress incontinence of urine N39.3 Active 42727662 Problem Hypertension, benign I10 Active 75018026 Problem Obstructive sleep apnea G47.33 Active 37784948 Problem Controlled type 2 diabetes mellitus without complication, without long -term current use of insulin E11.9 Active 462008151 Problem 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 Active 96218035 Problem Arthritis M19.90 Active 2022119 Problem Uncontrolled type 2 diabetes mellitus without complication, without long-term current use of insulin E11.65 Active 214520773 Problem Polyneuropathy G62.9 Active 91499557 Problem Fibromyalgia M79.7 Active 234622315 ALLERGIES Substance Reaction Event Type Date Status Zinc Unknown Drug Allergy Jun, Active Lasix Unknown Drug Allergy Jun, Active Cozaar Unknown Drug Allergy Jun, Active SulfADIAZINE Unknown Drug Allergy Jun, Active Nabumetone Unknown Drug Allergy Jun, Active Androgel Unknown Drug Allergy Jun, Active Wool itching Non [...] for ss Non Drug Allergy Jun, Active ENCOUNTERS Encounter Location Date Diagnosis [facility] [address] [facility] [id number] [address] Oct, [facility] [address] [facility] [place] [id number] [place] [address] Oct, [facility] [address] [facility] [place] [id number] [place] [address] 6646 Oct, [facility] [address] [facility] [place] [id number] [place] [address]- 6896 Oct, [facility] [address] [facility] [place] [id number] [place] [address]- 9443 Oct, [facility] [address] [facility] [place] [id number] [place] [address]- 4506 Oct, [facility] [address] [facility] [place] [id number] [place] [address] 8993 Oct, [facility] [address] [address] 4[address] Oct, [facility] [address], [place] [address] 99[address] Sep, [facility] [address] [id number], [place] [address]- 8[address] Sep, Uncontrolled type 2 diabetes mellitus without complication, without long-term current use of insulin E11.65 [facility] [address], [place] [address] 3[address] Sep, Hypertension, benign I10 ; Fibromyalgia M79.7 ; Controlled type 2 diabetes mellitus without complication, without long-term current use of insulin E11.9 and Uncontrolled type 2 diabetes mellitus without complication, without long-term current use of insulin E11.65 [facility] [address] [id number], [place] [address] 1452 Sep, [facility] [address] [id number], [place] [address]- 6528 Sep, Uncontrolled type 2 diabetes mellitus without complication, without long-term current use of insulin E11.65 [facility] [address] [id number], [place] [address]- 3074 Sep, [facility] [id number] [place] [address] 93470- 3303 Sep, [facility] [id number] [place] [address] 49798- 6119 Sep, Uncontrolled type 2 diabetes mellitus without complication, without long-term current use of insulin E11.65 and Fibromyalgia M79.7 [facility] [address] [address] August, [facility] [id number] [place] [address] 27550- 8485 August, [facility] [id number] [place] [address] 41343- 3135 August, [facility] [id number] [place] [address] 37765- 5121 August, Fibromyalgia M79.7 [facility] [id number] [place] [address] 47770- 6194 Jul, Hypertension, benign I10 [facility] [id number] [place] [address] 30876- 5193 Jul, Fibromyalgia M79.7 [facility] [id number] [place] [address] 63100- 7732 Jul, [facility] [id number] [place] [address] 54444- 4392 Jun, [facility] [id number] [place] [address] 80694- 3403 Jun, Hypertension, benign I10 ; Arthritis M19.90 ; halfway current use 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 Z79.891 and Uncontrolled type 2 diabetes mellitus without complication, without long-term current use of insulin E11.65 [facility] [address], [place] [address] Jun, Acute nasopharyngitis J00 and BMI 50.0-59.9, adult Z68.43 [place] [id number] [place] [address] 03478 2546 05 Jun, 2017 Fibromyalgia M79.7 [facility] [id number] [place] [address] 10218 2546 14 May, 2017 [facility] [id number] [place] [address] 12478 2546 02 May, 2017 Fibromyalgia M79.7 [facility] [id number] [place] [address] 30822 2546 Apr, Fibromyalgia M79.7 [facility] [id number] [place] [address] 35958- 1156 Apr, [facility] [id number] [place] [address] 44902- 0452 Apr, [facility] [id number] [place] [address] 76551- 5448 Apr, Arthritis M19.90 [facility] [id number] [place] [address] 39824 2546 Apr, Arthritis M19.90 [facility] [id number] [place] [address] 80580 2542 Apr, Arthritis M19.90 and Controlled type 2 diabetes mellitus without complication, without long-term current use of insulin E11.9 [facility] [id number] [place] [address] 38503 2546 Apr, [facility] [id number] [place] [address] 14321 2546 Apr, Fibromyalgia M79.7 [facility] [id number] [place] [address] 97703 2546 Mar, [facility] [id number] [place] [address] 18477 2546 Mar, [facility] [id number] [place] [address] 37043 0336 Mar, Fibromyalgia M79.7 [facility] [id number] [place] [address] 96969- 8730 Feb, [facility] [id number] [place] [address] 33095- 9650 Feb, [facility] [id number] [place] [address] 80116- 4544 Feb, [facility] [address] 95703- 8063 Feb, Fibromyalgia M79.7 [facility] [id number] [place] [address] 25607- 2320 Feb, Diabetes type 2, uncontrolled E11.65 and Encounter for immunization Z23 [facility] [id number] [place] [address] 47300- 9967 Jan, [facility] [address] 67708- 8565 Jan, Fibromyalgia M79.7 [facility] [id number] [place] [address] 01084- 8889 Dec, [facility] [id number] [place] [address] 00293- 1643 Dec, Fibromyalgia M79.7 [facility] [id number] [place] [address] 81384- 9463 Nov, [facility] [id number] [place] [address] 27124- 2390 Nov, [facility] [id number] [place] [address] 89975- 0673 Nov, 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 and Polyneuropathy G62.9 [facility] [id number] [place] [address] 62304- 4077 Nov, [facility] [id number] [place] [address] 00776- 1443 Nov, [facility] [address] [facility] [id number] [address]- 4124 Oct, Diabetes type 2, uncontrolled E11.65 [facility] [address] [facility] [place] [id number] [place] [address], [place] [address]- 6086 Oct, Diabetes type 2, uncontrolled E11.65 ; Polyneuropathy G62.9 and Pain in right wrist M25.531 [facility] [address] [facility] [place] [id number] [place] [address], [place] [address]- 2586 Oct, [facility] [address] [facility] [place] [id number] [place] [address], [place] [address]- 5028 Oct, Pain in left shoulder M25.512 [facility] [id number] [place] [address], [place] [address]- 6797 Sep, [facility] [id number] [place] [address], [place] [address]- 6845 Sep, Pain in left shoulder M25.512 [facility] [address] [place] [address]- 6893 Sep, [facility] [id number] [place] [address] 81513- 8522 August, Pain in left shoulder M25.512 [facility] [address], [place] [address]- 1425 Jul, [facility] [address], [place] [address]- 3656 Jul, [facility] [address] [facility] [place] [id number], [place] [address]- 0023 Jul, Pain in left shoulder M25.512 [facility] [id number], [place] [address]- 0256 Jun, [facility] [address] [id number], [place] [address]- 1207 Jun, [facility] [address] [id number], [place] [address]- 4560 Jun, Diabetes type 2, uncontrolled E11.65 ; Fibromyalgia M79.7 and Arthritis M19.90 [facility] [id number] [place] [address] 03787- 8386 14 Jun, 2016 Pain in left shoulder M25.512 [facility] [address] [id number], [place] [address]- 9066 May, [facility] [id number] [place] [address] 01058- 7874 May, Diabetes type 2, controlled E11.9 [place] [id number] [place] [address] 80329- 4926 May, [place] [id number] [place] [address] 15378- 2611 May, Uncontrolled type 2 diabetes mellitus without complication, without long-term current use of insulin E11.65 [place] [address] [place] [address] 68476- 3738 15 May, 2016 Pain in left shoulder M25.512 [facility] [address] [place] [address] 43966- 7157 03 May, 2016 Diabetes type 2, controlled E11.9 and Uncontrolled type 2 diabetes mellitus without complication, without long-term current use of insulin E11.65 [place] [address], [place] [address]- 7975 Apr, [facility] [address], [place] [address]- 2019 Apr, [place] [address], [place] [address]- 3712 Mar, [place] [id number] [place] [address] 17072- 7086 Mar, [place] [address], [place] [address]- 1121 Mar, [place] [address] [facility] [place] [id number] [place] [address]- 6569 Feb, [facility] [address] [id number] [id number] Feb, Dental examination Z01.20 [facility] [address] [id number] [place] [address]- 3002 Jan, [facility] [id number] [place] [address], [place] [address]- 5485 Dec, [facility] [address] [id number] [place] [address]- 4253 Dec, [facility] [address] [id number] [place] [address], [place] [address]- 9326 Dec, [facility] [address] [facility] [place] [id number] [place] [address]- 8553 Dec, Diabetes type 2, controlled E11.9 [facility] [address] [id number] [place] [address]- 2950 Nov, [facility] [address] [id number] [place] [address]- 0011 Nov, [facility] [address] [facility] [place] [id number], [place] [address]- 6281 Nov, [facility] [address] [id number], [place] [address]- 1313 Nov, [facility] [address] [id number], [place] [address]- 6450 Oct, [facility] [address] [id number] [place] [address]- 5927 Oct, [facility] [address] [id number], [place] [address]- 0756 Oct, [facility] [address] [id number], [place] [address]- 6772 Sep, [facility] [address], [place] [address]- 0383 13 Sep, 2015 Diabetes type 2, controlled E11.9 [facility] [id number] [place] [address] 24558- 4206 Sep, Diabetes type 2, controlled E11.9 [facility] [address] [id number], [place] [address]- 6606 August, [facility] [id number] [place] [address] 04951- 0955 August, [facility] [id number] [place] [address] 15383- 7492 August, Type 2 diabetes mellitus without complication E11.9 and Pain in left shoulder M25.512 [facility] [id number] [place] [address], [place] [address]- 2024 Jul, [facility] [id number] [place] [address] 55848- 3193 Jul, Diabetes type 2, controlled E11.9 and Hypertension, benign I10 [facility] [address], [place] [address]- 6504 Jun, [facility] [id number] [place] [address] 01264- 2959 Jun, [facility] [address], [place] [address]- 2996 Jun, Diabetes 250.00 [facility] [address], [place] [address]- 0979 Jun, [facility] [address], [place] [address]- 1354 May, Diabetes type 2, uncontrolled E11.65 [facility] [address] [address]- 2196 May, [facility] [address], [place] [address]- 7808 Apr, Type 2 diabetes mellitus without complication E11.9 [facility] [address], [place] [address]- 0133 Apr, Encounter for immunization Z23 [facility] [id number] [place] [address] 08387- 1404 Apr, [facility] [id number] [place] [address] 10893- 4335 Mar, [facility] [id number] [place] [address] 11959- 5889 Mar, [facility] [id number] [place] [address] 69023- 7381 Mar, [facility] [id number] [place] [address] 04457- 5086 Feb, [facility] [id number] [place] [address] 81689- 8237 Jan, [facility] [id number] [place] [address] 93988- 9417 Jan, [facility] [address] [place] [address] 33410- 0297 Jan, [facility] [id number], [place] [address]- 2155 Dec, Diabetes 250.00 and COPD (chronic obstructive pulmonary disease) 496 [facility] [address] [place] [address] 18534- 1396 Dec, [facility] [address], [place] [address]- 6757 Dec, [facility] [id number] [place] [address] 84775- 9369 Nov, [facility] [address], [place] [address]- 5074 Oct, Diabetes 250.00 [facility] [address] [place] [address] 79496- 6973 Sep, [facility] [address] [id number], [place] [address]- 9118 Sep, [facility] [address], [place] [address]- 3126 Sep, [facility] [address], [place] [address]- 5112 Sep, Diabetes 250.00 [facility] [place] [address], [place] [address]- 8581 Sep, [facility] [address], [place] [address]- 5119 Sep, [facility] [address], [place] [address]- 1349 August, Hypertension, essential, benign 401.1 ; Coronary atherosclerosis of cabazon coronary artery 414.01 and Diabetic neuropathy associated with type 2 diabetes mellitus 250.60 [facility] [place] [address], [place] [address]- 6104 Jul, [facility] [address], [place] [address]- 7524 Jul, [facility] [address], [place] [address]- 5974 Jul, [facility] [address] [id number], [place] [address]- 1194 Jun, [facility] [address], [place] [address]- 9107 Jun, [facility] [address] [id number], [place] [address]- 9130 Jun, [facility] [address] 4140 Jun, [facility] [id number] 7274 Jun, [facility] [address] [place] [address]- 5409 May, 2014 [facility] [place] [facility] [address] [id number] [place] [address]- 1286 May, 2014 [facility] [place] [facility] [address] [id number] [place] [address]- 4536 May, 2014 [facility] [place] [facility] [address] [id number] [place] [address]- 0156 May, 2014 [facility] [place] [facility] [address] [id number] [place] [address]- 5339 May, 2014 [facility] [place] [facility] [address] [id number] [place] [address]- 5766 May, 2014 [facility] [place] [facility] [address] [id number] [place] [address]- 8390 May, 2014 [facility] [place] [facility] [address] [facility] [place] [id number] [place] [address]- 8047 Apr, [facility] [place] [facility] [address] [id number] [place] [address]- 7070 Apr, [facility] [place] [facility] [address] [facility] [place] [id number] [place] [address]- 7631 Apr, [facility] [place] [facility] [address] [facility] [place] [id number] [place] [address]- 0515 Apr, [facility] [place] [facility] [address] [facility] [place] [id number] [place] [address]- 9765 Mar, [facility] [place] [facility] [address] [id number] [place] [address]- 8441 Mar, [facility] [place] [facility] [address] [id number] [place] [address] 2546 Mar, [facility] [place] [facility] [address] [facility] [place] [id number] [place] [address]- 4886 Mar, [facility] [place] [facility] [address] [id number] [place] [address]- 0584 Feb, [facility] [place] [facility] [address] [id number] [place] [address]- 4542 Feb, [facility] [place] [facility] [address] [id number] [place] [address]- 6414 Feb, [facility] [place] [facility] [address] [id number] [place] [address]- 6110 Feb, [facility] [place] [facility] [address] [id number] [place] [address]- 3128 Feb, [facility] [place] [facility] [address] [id number] [place] [address]- 1325 Feb, [facility] [place] [facility] [address] [id number] [place] [address]- 3479 Feb, [facility] [place] [facility] [address] [id number] [place] [address]- 5748 Jan, [facility] [place] [facility] [address] [id number], [place] [address]- 8261 Jan, [facility] [place] [facility] [address] [id number] [place] [address]- 1198 Dec, [facility] [place] [facility] [address] [id number] [place] [address]- 0703 Dec, [facility] [place] [facility] [address] [id number], [place] [address]- 6763 10 Dec, 2013 [facility] [place] [facility] [address] [id number], [place] [address]- 5290 10 Dec, 2013 [facility] [place] [facility] [address] [id number] [place] [address]- 7087 04 Dec, 2013 [facility] [place] [facility] [address] [id number], [place] [address]- 2616 04 Dec, 2013 [facility] [place] [facility] [address] [id number], [place] [address]- 9703 03 Dec, 2013 [facility] [place] [facility] [address] [id number] [place] [address]- 1697 Dec, [facility] [place] [facility] [address] [id number] [place] [address]- 0197 Nov, [facility] [place] [facility] [address] [id number] [place] [address]- 7161 Nov, [facility] [place] [facility] [address] [id number] [place] [address] Nov, [facility] [place] [facility] [address] [id number] [place] [address] Nov, [facility] [place] [facility] [address] [id number] [place] [address] Oct, [facility] [place] [facility] [address] [id number] [place] [address] Oct, [facility] [place] [facility] [address] [id number] [place] [address] Oct, [facility] [place] [facility] [address] [id number] [place] [address] Oct, [facility] [place] [facility] [address] [id number] [place] [address] Oct, [facility] [place] [facility] [address] [id number] [place] [address] Oct, [facility] [place] [facility] [address] [id number] [place] [address] Oct, [facility] [place] [facility] [address] [id number] [place] [address] Oct, [facility] [place] [facility] [address] [id number] [place] [address] Sep, [facility] [place] [facility] [address] [id number] [place] [address] Sep, [facility] [place] [facility] [address] [id number] [place] [address] August, [facility] [place] [facility] [address] [id number] [place] [address] August, [facility] [place] [facility] [address] [id number] [place] [address] Jul, [facility] [place] [facility] [address] [id number] [place] [address] Jul, [facility] [place] [facility] [address] [id number] [place] [address] Jul, [facility] [place] [facility] [address] [id number] [place] [address] Jul, [facility] [place] [facility] [address] [id number] [place] [address] Jul, [facility] [place] [facility] [address] [id number] [place] [address] Jul, [facility] [place] [facility] [address] [id number] [place] [address] Jul, [facility] [place] [facility] [address] [id number] [place] [address] Jul, [facility] [place] [facility] [address] [id number] [place] [address] Jun, [facility] [place] [facility] [address] [id number] [place] [address] Jun, [facility] [place] [facility] [address] [id number] [address] Jun, [facility] [place] [facility] [address] [id number] [place] [address] Jun, [facility] [place] [facility] [address] [id number] [place] [address] May, [facility] [place] [facility] [address] [id number] [place] [address] May, [facility] [place] [facility] [address] [id number], [place] [address] Apr, [facility] [address] [id number] [place] [address] Apr, [facility] [place] [facility] [address] [id number] [place] [address] Mar, [facility] [place] [facility] [address] [id number] [place] [address] Mar, [facility] [place] [facility] [address] [id number] [place] [address]- 2011 Mar, [facility] [place] [facility] [address] [id number] [place] [address] Mar, [facility] [place] [facility] [address] [id number] [place] [address] Mar, [facility] [place] [facility] [address] [id number] [place] [address] Mar, [facility] [place] [facility] [address] [id number] [place] [address] Feb, [facility] [place] [facility] [address] [id number] [place] [address] Feb, [facility] [place] [facility] [address] [id number] [place] [address] Feb, [facility] [place] [facility] [address] [id number] [place] [address] Feb, [facility] [place] [facility] [address] [id number] [place] [address] Feb, [facility] [place] [facility] [address] [id number] [place] [address] 1984 Feb, [facility] [place] [facility] [address] [id number] [place] [address] Feb, [facility] [place] [facility] [address] [facility] [place] [id number] [place] [address] Feb, [facility] [place] [facility] [address] [id number] [place] [address] 15 Jan, 2013 [facility] [place] [facility] [address] [id number] [place] [address] 15 Jan, 2013 [facility] [place] [facility] [address] [id number] [place] [address] 14 Jan, 2013 [facility] [place] [facility] [address] [id number] [place] [address] 14 Jan, 2013 [facility] [place] [facility] [address] [id number] [place] [address] 18 Dec, 2012 [facility] [place] [facility] [address] [id number] [place] [address] 13 Dec, 2012 [facility] [place] [facility] [address] [id number] [place] [address] 2012 [facility] [place] [facility] [address] [id number] [place] [address] 23 Nov, 2012 [facility] [place] [facility] [address] [id number] [place] [address] Nov, [facility] [place] [facility] [address] [id number] [place] [address] 16 Oct, 2012 [facility] [place] [facility] [address] [id number] [place] [address] 05 Oct, 2012 [facility] [place] [facility] [address] [id number] [place] [address] Oct, [facility] [place] [facility] [address] [id number] [place] [address] 139[address] Sep, [facility] [place] [facility] [address] [id number] [place] [address] Sep, [facility] [place] [facility] [address] [id number] [place] [address] 18 Sep, 2012 [facility] [place] [facility] [address] [id number] [place] [address] Sep, [facility] [address] [id number] [place] [address] Sep, [facility] [place] [facility] [address] [id number] [place] [address] Sep, [facility] [address] [id number] [place] [address] August, [facility] [place] [facility] [address] [id number] [place] [address] August, [facility] [address] [id number] [place] [address] August, [facility] [address] [id number] [place] [address] August, [facility] [address] [id number] [place] [address] 35[address] August, [facility] [place] [facility] [address] [id number] [place] [address] 97[address] August, [facility] [place] [facility] [address] [id number] [place] [address] August, [facility] [place] [facility] [address] [id number] [place] [address] Jul, [facility] [place] [facility] [address] [id number] [place] [address] Jul, [facility] [place] [facility] [address] [id number] [address] Jun, [facility] [place] [facility] [address] [id number] [place] [address] Jun, [facility] [place] [facility] [address] [id number] [place] [address] May, [facility] [place] [facility] [address] [id number] [place] [address] May, [facility] [place] [facility] [address] [id number] [place] [address] 20[address] Apr, [facility] [place] [facility] [address] [id number] [place] [address] Mar, [facility] [place] [facility] [address] [id number] [place] [address] Mar, [facility] [place] [facility] [address] [id number] [place] [address] 240[address] Mar, [facility] [place] [facility] [address] [id number] [place] [address] Mar, [facility] [place] [facility] [address] [id number] [place] [address] Mar, [facility] [place] [facility] [address] [id number] [place] [address] 6560 Mar, [facility] [place] [facility] [address] [id number] [place] [address] 4266 Feb, [facility] [place] [facility] [address] [id number] [place] [address] 1360 Feb, [facility] [place] [facility] [address] [id number] [place] [address] 1476 Feb, [facility] [place] [facility] [address] [facility] [place] [id number] [place] [address] 4[address] Feb, [facility] [place] [facility] [address] [id number] [place] [address] 8035 Feb, [facility] [place] [facility] [address] [id number] [place] [address] 1206 Feb, [facility] [place] [facility] [address] [id number] [place] [address] 6[address] Feb, [facility] [place] [facility] [address] [id number] [place] [address] 7275 Feb, [facility] [place] [facility] [address] [id number] [place] [address] 9[address] Jan, [facility] [place] [facility] [address] [id number] [place] [address]28 Jan, [facility] [place] [facility] [address] [id number] [place] [address] 5079 28 Dec, 2011 [facility] [place] [facility] [address] [id number] [place] [address] 6[address] Dec, [facility] [place] [facility] [address] [id number] [place] [address] 0798 Dec, [facility] [place] [facility] [address] [id number] [place] [address] 0660 Dec, [facility] [place] [facility] [address] [id number] [place] [address] 7824 04 Dec, 2011 [facility] [place] [facility] [address] [id number] [place] [address] 8075 Nov, [facility] [place] [facility] [address] [id number] [place] [address]- 4980 Oct, [facility] [place] [facility] [address] [id number] [place] [address] 8850 Oct, [facility] [place] [facility] [address] [id number] [place] [address]- 0784 Sep, [facility] [place] [facility] [address] [id number] [place] [address]- 7402 Sep, [facility] [place] [facility] [address] [id number] [place] [address]- 0145 Sep, [facility] [place] [facility] [address] [id number] [place] [address]- 5831 Sep, [facility] [place] [facility] [address] [id number] [place] [address]- 0225 Sep, [facility] [place] [facility] [address] [id number] [place] [address]- 9335 Sep, [facility] [place] [facility] [address] [id number] [place] [address]- 9040 Sep, [facility] [address] [id number] [place] [address]- 4957 Sep, [facility] [place] [facility] [address] [id number] [place] [address]- 2708 August, [facility] [place] [facility] [address] [id number] [place] [address]- 2659 August, [facility] [place] [facility] [address] [id number] [place] [address] 4350 August, [facility] [place] [facility] [address] [id number] [place] [address]- 3380 Jul, [facility] [place] [facility] [address] [id number] [place] [address] Jul, [facility] [address] [id number] [place] [address]- 5069 Jun, [facility] [place] [facility] [address] [id number] [place] [address]- 2678 Jun, [facility] [place] [facility] [address] [id number] [place] [address]- 1973 Jun, [facility] [place] [facility] [address] [id number] [place] [address]- 2267 Jun, [facility] [place] [facility] [address] [id number] [place] [address]- 5350 May, [facility] [place] [facility] [address] [id number] [place] [address]- 2718 May, [facility] [place] [facility] [address] [id number] [place] [address]- 3200 Apr, [facility] [place] [facility] [address] [id number] [place] [address]- 5258 Apr, [facility] [place] [facility] [address] [id number] [place] [address]- 1595 Apr, [facility] [place] [facility] [address] [id number] [place] [address]- 0348 14 Mar, 2011 [facility] [place] [facility] [address] [id number] [place] [address] 09 Mar, 2011 [facility] [place] [facility] [address] [id number] [place] [address]- 5989 Mar, [facility] [place] [facility] [address] [id number] [place] [address]- 3126 Feb, [facility] [place] [facility] [address] [id number] [place] [address]- 7901 Feb, [facility] [place] [facility] [address] [id number] [place] [address]- 9344 Feb, [facility] [place] [facility] [address] [id number] [place] [address]- 4185 Feb, [facility] [place] [facility] [address] [id number] [place] [address]- 0625 Jan, [facility] [place] [facility] [address] [id number] [place] [address]- 7433 14 Jan, 2011 [facility] [place] [facility] [address] [id number] [place] [address]- [address]18 Jan, [facility] [place] [facility] [address] [facility] [place] [id number] [place] [address]- 8360 16 Dec, 2010 [facility] [place] [facility] [address] [id number] [place] [address]- 7830 Oct, [facility] [place] [facility] [address] [id number] [place] [address]- 9498 Mar, [facility] [place] [facility] [address] [id number] [place] [address]- 3485 Feb, [facility] [place] [facility] [address] [id number] [place] [address]- 9660 15 Feb, 2010 [facility] [place] [facility] [address] [id number] [place] [address]- 6[address] May, [facility] [address] [id number] [address] Apr, [facility] [id number], [place] [address] Mar, [facility] [address], [place] [address] 2546 Jan, [facility] [id number] [place] [address]- 1456 Oct, [facility] [id number] [place] [address]- 6196 Jul, [facility] [id number] [place] [address]- 2546 Mar, [facility] [address], [place] [address] 2546 Feb, [facility] [address], [place] [address] 2546 Jan, IMMUNIZATIONS No Known Immunizations SOCIAL HISTORY Never Assessed REASON FOR VISIT cough Pt has had sinus congestion and a small cough for about a week ROBIN Polo PLAN OF CARE Activity Details Follow Up prn Reason: VITAL SIGNS Height 71 in 2017-06-23 Weight 366.4 lbs 2017-06-23 Temperature 97.6 degrees Fahrenheit 2017-06-23 Heart Rate 76 bpm 2017-06-23 Respiratory Rate 20 2017-06-23 BMI 51.10 kg/m2 2017-06-23 Blood pressure systolic 110 mmHg 2017-06-23 Blood pressure diastolic 72 mmHg 2017-06-23 MEDICATIONS Medication Instructions Dosage Frequency Start Date End Date Duration Status Furosemide 20 mg Orally Once a day 2 tablet in the AM and 1 tablet in PM 24h Active Cymbalta 30 MG TAKE ONE CAPSULE BY MOUTH DAILY ALONG WITH DULOXETINE 60 MG 30 Active Viagra 100 mg Orally Once a day 1 tablet as needed 24h Active Glucometer as directed Oct, Active Hydrochlorothiazide 25 MG Orally Once a day 1 tablet 24h 30 Active ProAir HFA 108 (90 Base) MCG/ACT Inhalation every 4 hrs 2 puffs as needed 4h Active Vitamin B Complex Active Silver Sulfadiazine 1 % Externally Once a day 1 application to affected area 24h Apr, Apr, 30 days Active Vitamin D 2000 UNIT Active Aspirin 325 MG Orally Once a day 1 tablet 24h Active Symbicort 160-4.5 MCG/ACT Inhalation Twice a day 2 puff 12h Feb, Active Tamsulosin HCl 0.4 MG Orally Once a day 1 capsule 30 minutes after the same meal each day 24h Active Bydureon 2 MG Subcutaneous once weekly 2mg 28 Active True Metrix Blood Glucose Test - once a day Active Cyclobenzaprine HCl 10 MG Orally Three times a day 1 tablet 8h Active Lancets - as directed Oct, Active Fish Oil 1200 MG Orally Once a day 2 capsule 24h Active MS Contin 15 mg Orally every 12 hrs 1 tablet 12h Jun, 28 days Active Metoprolol Tartrate 100 MG TAKE ONE TABLET BY MOUTH TWICE DAILY 90 Active Amitriptyline HCl 100 MG TAKE ONE TABLET BY MOUTH ONCE DAILY 30 Active Blood Glucose Test 1 1 test Jul, Active Duloxetine HCl 60 MG Orally 2 times a day 1 capsule 12h 90 days Active GlipiZIDE 5 MG TAKE TWO TABLETS BY MOUTH TWICE DAILY 30 Active Meloxicam 7.5 MG Orally Once a day 1 tablet 24h Apr, Jul, 30 day(s) Active potassium 1 tab Active Lyrica 200 mg Orally Three times a day 1 capsule 8h 28 days Active Tylenol Extra Strength 500 mg Orally 3 times a day 2 tablets 8h Active Atorvastatin Calcium 40 MG Orally Once a day 1 tablet 24h Active lidocaine topical 5 %(700 mg/patch) [...]
--- OUTSIDE RECORDS SUMMARY | 2018-07-05 12:49 | XMS REPORT ---
Author Author KATHYA FISCHER Organization [facility] Address [address] [place] [address] Care Team Providers Care Biblical Studies Professor Name Role Phone KATHYA FISCHER Unavailable PROBLEMS Type Condition ICD9-CM Code RMG12-KS Code Onset Dates Condition Status SNOMED Code Problem Stress incontinence of urine N39.3 Active 07311566 Problem Hypertension, benign I10 Active 01770386 Problem Obstructive sleep apnea G47.33 Active 81009614 Problem Controlled type 2 diabetes mellitus without complication, without long -term current use of insulin E11.9 Active 534422229 Problem 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 Active 39404311 Problem Arthritis M19.90 Active 5478942 Problem Uncontrolled type 2 diabetes mellitus without complication, without long-term current use of insulin E11.65 Active 036303360 Problem Polyneuropathy G62.9 Active 18773691 Problem Fibromyalgia M79.7 Active 055527375 ALLERGIES No Information ENCOUNTERS Encounter Location Date Diagnosis [facility] [id number] [place] [address] 47180- 1403 Oct, [facility] [id number] [place] [address] 69944- 5682 Oct, [facility] [id number] [place] [address] 48475- 9491 Oct, [facility] [address] [place] [address] 50003- 5354 Oct, [facility] [id number] [place] [address] 48557- 3384 Oct, [facility] [id number] [place] [address] 16335- 5842 Oct, [facility] [address] [place] [address] 22433- 0779 Oct, [facility] [address], [place] [address] 2546 Sep, [facility] [id number] [place] [address] 20281 2546 Sep, Uncontrolled type 2 diabetes mellitus without complication, without long-term current use of insulin E11.65 [facility] [address] [place] [address] 27124 2546 Sep, Hypertension, benign I10 ; Fibromyalgia M79.7 ; Controlled type 2 diabetes mellitus without complication, without long-term current use of insulin E11.9 and Uncontrolled type 2 diabetes mellitus without complication, without long-term current use of insulin E11.65 [facility] [facility] [id number] [place] [address] 02251 2546 Sep, [facility] [address] [address] 2546 Sep, Uncontrolled type 2 diabetes mellitus without complication, without long-term current use of insulin E11.65 [place] [facility] [address], [place] [address] 2546 Sep, [facility] [address] [address] 2546 Sep, [facility] [address], [place] [address] 2546 Sep, Uncontrolled type 2 diabetes mellitus without complication, without long-term current use of insulin E11.65 and Fibromyalgia M79.7 [facility] [address], [place] [address] 2546 August, [facility] [address], [place] [address] 2546 August, [facility] [address] [place] [address] 2546 August, [facility] [address] [place] [address] 2546 August, Fibromyalgia M79.7 [facility] [id number] [place] [address] 86616- 3601 Jul, Hypertension, benign I10 [facility] [address] 73122- 7809 Jul, Fibromyalgia M79.7 [facility] [address] 72243- 6206 Jul, [facility] [address] 06206- 5308 Jun, [facility] [address] 24184- 9721 Jun, Hypertension, benign I10 ; Arthritis M19.90 ; detention current use 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 Z79.891 and Uncontrolled type 2 diabetes mellitus without complication, without long-term current use of insulin E11.65 [facility] [address] 10896 -6351 Jun, Acute nasopharyngitis J00 and BMI 50.0-59.9, adult Z68.43 [facility] [address] 89581- 8100 Jun, Fibromyalgia M79.7 [facility] [address] 32797- 2374 May, [facility] [address] 58205- 8384 May, Fibromyalgia M79.7 [facility] [address] 46404- 5614 Apr, Fibromyalgia M79.7 [facility] [address] 12359- 3771 Apr, [facility] [address] 82815- 6432 Apr, [facility] [address] 55384- 5609 Apr, Arthritis M19.90 [facility] [id number] [place] [address] 62610 2546 Apr, Arthritis M19.90 [facility] [id number] [place] [address] 25390 2542 10 Apr, 2017 Arthritis M19.90 and Controlled type 2 diabetes mellitus without complication, without long-term current use of insulin E11.9 [facility] [address] 54589- 2533 Apr, [facility] [id number] [place] [address] 92889- 8654 Apr, Fibromyalgia M79.7 [facility] [id number] [place] [address] 60692- 2886 Mar, [facility] [address] 25523- 6140 Mar, [facility] [id number] [place] [address] 29427- 7911 Mar, Fibromyalgia M79.7 [facility] [id number] [place] [address] 61539- 8463 Feb, [facility] [id number] [place] [address] 61862- 5379 Feb, [facility] [id number] [place] [address] 05557- 3796 Feb, [facility] [id number] [place] [address] 16879 2541 Feb, Fibromyalgia M79.7 [facility] [id number] [place] [address] 05973- 2544 Feb, Diabetes type 2, uncontrolled E11.65 and Encounter for immunization Z23 [facility] [id number] [place] [address] 15335- 0306 Jan, [facility] [address], [place] [address]- 4263 Jan, Fibromyalgia M79.7 [facility] [id number] [place] [address] 87153- 6393 Dec, [facility] [id number] [place] [address] 75632- 0463 Dec, Fibromyalgia M79.7 [facility] [id number] [place] [address] 36211- 3944 Nov, [facility] [id number] [place] [address] 17950- 3735 Nov, [facility] [id number] [place] [address] 02056- 0250 Nov, 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 and Polyneuropathy G62.9 [facility] [id number] [place] [address] 00327- 4195 Nov, [facility] [address] [place] [address] 63312- 4962 Nov, [facility] [id number] [place] [address] 07878- 1220 Oct, Diabetes type 2, uncontrolled E11.65 [facility] [address], [place] [address]- 7807 Oct, Diabetes type 2, uncontrolled E11.65 ; Polyneuropathy G62.9 and Pain in right wrist M25.531 [facility] [address], [place] [address]- 9463 Oct, [facility] [id number] [place] [address] 95010- 6763 Oct, Pain in left shoulder M25.512 [facility] [address], [place] [address]- 2098 Sep, [facility] [id number] [place] [address] 91755- 1311 Sep, Pain in left shoulder M25.512 [facility] [id number] [place] [address] 01348- 7446 Sep, [facility] [id number] [place] [address] 02551- 7106 August, Pain in left shoulder M25.512 [facility] [id number] [place] [address] 65410- 8266 Jul, [facility] [id number] [place] [address] 61995- 6249 Jul, [facility] [id number] [place] [address] 23179- 1657 Jul, Pain in left shoulder M25.512 [facility] [id number] [place] [address] 18237- 8285 Jun, [facility] [id number] [place] [address] 89163- 1983 Jun, [facility] [id number] [place] [address] 69179- 0140 Jun, Diabetes type 2, uncontrolled E11.65 ; Fibromyalgia M79.7 and Arthritis M19.90 [facility] [id number] [place] [address] 08153- 2018 Jun, Pain in left shoulder M25.512 [facility] [id number] [place] [address] 53970- 8076 May, [facility] [id number] [place] [address] 33536- 9821 May, Diabetes type 2, controlled E11.9 [facility] [id number] [place] [address] 46520- 3826 May, [facility] [id number] [place] [address] 78367- 3390 May, Uncontrolled type 2 diabetes mellitus without complication, without long-term current use of insulin E11.65 [facility] [address], [place] [address]- 3918 15 May, 2016 Pain in left shoulder M25.512 [facility] [address], [place] [address]- 1448 03 May, 2016 Diabetes type 2, controlled E11.9 and Uncontrolled type 2 diabetes mellitus without complication, without long-term current use of insulin E11.65 [facility] [address] [place] [address] 25337- 9078 Apr, [facility] [address] [place] [address] 81761- 4465 Apr, [facility] [id number] [place] [address] 09365- 1331 Mar, [facility] [id number] [place] [address] 90261- 2800 Mar, [facility] [id number] [place] [address] 85210- 9412 Mar, [facility] [address] [place] [address] 88791- 0777 Feb, [facility] [address] [place] [address] [id number] Feb, Dental examination Z01.20 [facility] [address], [place] [address]- 3824 Jan, [facility] [address], [place] [address]- 5986 14 Dec, 2015 [facility] [id number] [place] [address] 73810- 4302 Dec, [facility] [id number] [place] [address] 56478- 9397 Dec, [facility] [address], [place] [address]- 5521 Dec, Diabetes type 2, controlled E11.9 [facility] [address] [id number] [place] [address]- 6173 Nov, [facility] [address] [id number] [place] [address]- 4076 Nov, [facility] [address] [id number] [place] [address]- 7031 Nov, [facility] [address] [id number] [place] [address]- 7858 Nov, [facility] [address] [id number] [place] [address]- 4965 Oct, [facility] [address] [id number] [place] [address]- 7954 Oct, [facility] [address] [facility] [id number] [place] [address]- 9057 Oct, [facility] [address] [facility] [id number] [place] [address]- 8552 Sep, [facility] [address] [id number] [place] [address]- 1425 Sep, Diabetes type 2, controlled E11.9 [facility] [address] [id number] [place] [address]- 9471 Sep, Diabetes type 2, controlled E11.9 [facility] [address] [id number] [place] [address]- 7216 August, [facility] [address] [id number] [place] [address]- 8332 August, [facility] [address] [facility] [id number] [place] [address]- 3128 August, Type 2 diabetes mellitus without complication E11.9 and Pain in left shoulder M25.512 [facility] [address] [id number] [place] [address]- 6661 Jul, [facility] [id number] [place] [address] 96262- 7590 Jul, Diabetes type 2, controlled E11.9 and Hypertension, benign I10 [facility] [id number] [place] [address] 48556- 7658 Jun, [facility] [id number] [place] [address] 35242- 2730 Jun, [facility] [address] 00651- 1324 Jun, Diabetes 250.00 [facility] [id number] [place] [address] 92155- 5780 Jun, [facility] [id number] [place] [address] 39624- 7653 May, Diabetes type 2, uncontrolled E11.65 [facility] [id number] [place] [address] 58203- 5745 May, [facility] [id number] [place] [address] 01109- 3930 Apr, Type 2 diabetes mellitus without complication E11.9 [facility] [id number] [place] [address] 95454- 0253 Apr, Encounter for immunization Z23 [facility] [id number] [place] [address] 84479- 9027 Apr, [facility] [id number] [place] [address] 49227- 4917 Mar, [facility] [id number] [place] [address] 73449- 3938 Mar, [facility] [id number] [place] [address] 64698- 6976 Mar, [facility] [address] [place] [address] 54042- 9339 Feb, [facility] [id number] [place] [address] 10121- 8693 Jan, [facility] [address], [place] [address]- 6827 Jan, [facility] [id number] [place] [address] 792193- 3289 Jan, [facility] [address]- 1140 Dec, Diabetes 250.00 and COPD (chronic obstructive pulmonary disease) 496 [facility] [address], [place] [address]- 4907 Dec, [facility] [id number] [place] [address] 691590- 3306 Dec, [facility] [address] [address]- 6143 Nov, [facility] [id number] [place] [address] 68738- 3501 Oct, Diabetes 250.00 [facility] [address], [place] [address]- 4989 Sep, [facility] [address] [address]- 6540 Sep, [facility] [address], [place] [address]- 9839 Sep, [facility] [address], [place] [address]- 3702 Sep, Diabetes 250.00 [facility] [address], [place] [address]- 7484 Sep, [facility] [id number] [place] [address] 86846- 4082 Sep, [facility] [address] 2763 August, Hypertension, essential, benign 401.1 ; Coronary atherosclerosis of [place] coronary artery 414.01 and Diabetic neuropathy associated with type 2 diabetes mellitus 250.60 [facility] [place] [facility] [address] [facility] [id number] [place] [address]- 8393 29 Jul, 2014 [facility] [place] [facility] [address] [facility] [id number] [place] [address]- 0577 14 Jul, 2014 [facility] [place] [facility] [address] [place] [address]- 8505 Jul, [facility] [place] [facility] [address] [facility] [id number], [place] [address]- 5040 Jun, [facility] [place] [facility] [id number] [place] [address]- 5913 Jun, [facility] [place] [facility] [address], [place] [address]- 3089 Jun, [facility] [place] [facility] [id number] [place] [address]- 4670 Jun, [facility] [place] [facility] [address], [place] [address]- 3417 Jun, [facility] [place] [facility] [address], [place] [address]- 2745 May, [facility] [place] [facility] [address], [place] [address]- 0587 May, [facility] [place] [facility] [address], [place] [address]- 3126 May, [facility] [place] [facility] [address], [place] [address]- 6950 May, [facility] [place] [facility] [address], [place] [address]- 2591 May, [facility] [place] [facility] [address] 9620 May, [facility] [place] [facility] [address] 9584 May, [facility] [place] [facility] [address] [id number] [place] [address]- 2714 Apr, [facility] [place] [facility] [address] [id number] [place] [address]- 1296 Apr, [facility] [place] [facility] [address] [id number] [place] [address]- 3991 Apr, [facility] [place] [facility] [address] [id number] [place] [address]- 8881 Apr, [facility] [place] [facility] [address] [id number] [place] 9823 Mar, [facility] [place] [facility] [address] [id number] [place] 0936 Mar, [facility] [place] [facility] [address] [id number] [place] 6847 Mar, [facility] [place] [facility] [address] [id number] [place] [address]- 2952 Mar, [facility] [place] [facility] [address] [id number] [place] [address]- 7754 Feb, [facility] [place] [facility] [address] [id number] [place] [address]- 1476 Feb, [facility] [place] [facility] [address] [id number] [place] [address]- 2907 Feb, [facility] [place] [facility] [address] [id number] [place] [address]- 6973 Feb, [facility] [place] [facility] [address] [id number] [place] [address]- 9220 Feb, [facility] [place] [facility] [address] [id number] [place] [address]- 2529 Feb, [facility] [place] [facility] [address] [id number] [place] [address]- 2957 Feb, [facility] [place] [facility] [address] [id number] [place] [address]- 2717 Jan, [facility] [place] [facility] [address] [id number] [place] [address]- 5313 Jan, [facility] [place] [facility] [address] [id number] [place] [address]- 3280 Dec, [facility] [place] [facility] [address] [id number] [place] [address]- 3089 Dec, [facility] [place] [facility] [address] [id number] [place] [address]- 1434 Dec, [facility] [place] [facility] [address] [id number] [place] [address]- 4867 Dec, [facility] [place] [facility] [address] [id number] [place] [address]- 1635 Dec, [facility] [place] [facility] [address] [id number] [place] [address]- 7302 Dec, [facility] [place] [facility] [address] [id number] [place] [address]- 9035 Dec, [facility] [place] [facility] [address] [id number] [place] [address]- 2098 Dec, [facility] [place] [facility] [address] [id number] [place] [address]- 7372 Nov, [facility] [place] [facility] [address] [id number] [place] [address]- 4011 Nov, [facility] [place] [facility] [address] [id number], [place] [address]- 4550 Nov, [facility] [place] [facility] [address] [id number] [place] [address]- 0886 Nov, [facility] [place] [facility] [address] [id number] [place] [address]- 9910 Oct, [facility] [place] [facility] [address] [id number] [place] [address]- 5756 Oct, [facility] [place] [facility] [address] [id number] [place] [address]- 5352 Oct, [facility] [place] [facility] [address] [id number] [place] [address]- 4507 Oct, [facility] [place] [facility] [address] [id number] [place] [address]- 0164 Oct, [facility] [place] [facility] [address] [id number] [place] [address]- 0309 Oct, [facility] [place] [facility] [address] [id number] [place] [address]- 6810 Oct, [facility] [place] [facility] [address] [id number] [place] [address] Oct, [facility] [place] [facility] [address] [id number] [place] [address] Sep, [facility] [place] [facility] [address] [id number] [place] [address] Sep, [facility] [place] [facility] [address] [id number] [place] [address] August, [facility] [place] [facility] [address] [id number] [place] [address] August, [facility] [place] [facility] [address] [id number] [place] [address] Jul, [facility] [place] [facility] [address] [id number] [place] [address] Jul, [facility] [place] [facility] [address] [id number] [place] [address] Jul, [facility] [place] [facility] [address] [id number] [place] [address] Jul, [facility] [place] [facility] [address] [id number] [place] [address] Jul, [facility] [place] [facility] [address] [id number] [place] [address] Jul, [facility] [place] [facility] [address] [id number] [place] [address] Jul, [facility] [place] [facility] [address] [id number] [place] [address] Jul, [facility] [place] [facility] [address] [id number] [place] [address] Jun, [facility] [place] [facility] [address] [id number] [place] [address] Jun, [facility] [place] [facility] [address] [id number] [place] [address] Jun, [facility] [place] [facility] [address] [id number] [place] [address] Jun, [facility] [address] [id number] [place] [address] May, [facility] [place] [facility] [address] [id number] [place] [address] May, [facility] [place] [facility] [address] [id number] [place] [address] Apr, [facility] [address] [id number] [place] [address] Apr, [facility] [place] [facility] [address] [id number] [place] [address] Mar, [facility] [place] [facility] [address] [id number] [place] [address] Mar, [facility] [place] [facility] [address] [id number] [place] [address] Mar, [facility] [place] [facility] [address] [id number] [place] [address] Mar, [facility] [place] [facility] [address] [id number] [place] [address] Mar, [facility] [place] [facility] [address] [id number], [place] [address] Mar, [facility] [place] [facility] [address] [id number] [place] [address] Feb, [facility] [place] [facility] [address] [id number], [place] [address] Feb, [facility] [place] [facility] [address] [id number] [place] [address] Feb, [facility] [place] [facility] [address] [id number], [place] [address] Feb, [facility] [place] [facility] [address] [id number] [place] [address] Feb, [facility] [place] [facility] [address] [id number] [place] [address] Feb, [facility] [place] [facility] [address] [id number], [place] [address] Feb, [facility] [place] [facility] [address] [id number] [place] [address] Feb, [facility] [place] [facility] [address] [id number], [place] [address] 15 Jan, 2013 [facility] [place] [facility] [address] [id number], [place] [address] 15 Jan, 2013 [facility] [place] [facility] [address] [id number], [place] [address] 14 Jan, 2013 [facility] [place] [facility] [address] [id number], [place] [address] 14 Jan, 2013 [facility] [place] [facility] [address] [id number], [place] [address] 18 Dec, 2012 [facility] [place] [facility] [address] [id number], [place] [address] 13 Dec, 2012 [facility] [place] [facility] [address] [id number], [place] [address] 2012 [facility] [facility] [address] [id number] [place] [address] Nov, [facility] [address] [id number] [place] [address] Nov, [facility] [place] [facility] [address] [id number] [place] [address] Oct, [facility] [address] [id number] [place] [address] Oct, [facility] [place] [facility] [address] [id number] [place] [address] Oct, [facility] [address] [id number] [place] [address] Sep, [facility] [address] [id number] [place] [address] Sep, [facility] [address] [id number] [place] [address] Sep, [facility] [address] [id number] [place] [address] Sep, [facility] [facility] [address] [id number] [place] [address] Sep, [facility] [address] [id number] [place] [address] Sep, [facility] [facility] [address] [id number] [place] [address] August, [facility] [facility] [address] [id number] [place] [address] August, [facility] [facility] [address] [id number] [place] [address] August, [facility] [facility] [address] [id number] [place] [address] August, [facility] [facility] [address] [id number] [place] [address] August, [facility] [address] [id number] [place] [address] August, [facility] [address] [id number] [place] [address] August, [facility] [address] [id number] [place] [address] Jul, [facility] [address] [id number] [place] [address] Jul, [facility] [address] [id number] [place] [address] Jun, [facility] [address] [id number] [place] [address] Jun, [facility] [address] [id number] [place] [address] May, [facility] [address] [id number] [place] [address] May, [facility] [address] [id number] [place] [address]- 14[address] Apr, [facility] [address] [id number] [place] [address] Mar, [facility] [address] [id number] [place] [address] Mar, [facility] [facility] [address] [id number] [place] [address] 45[address] Mar, [facility] [facility] [address] [id number] [place] [address]- [address] Mar, [facility] [address] [id number] [place] [address] Mar, [facility] [address] [id number] [place] [address] Mar, [facility] [address] [id number] [place] [address] Feb, [facility] [address] [id number] [place] [address] Feb, [facility] [facility] [address] [id number] [place] [address] Feb, [facility] [facility] [address] [id number] [place] [address] Feb, [facility] [facility] [address] [id number] [place] [address] Feb, [facility] [facility] [address] [id number] [place] [address] Feb, [facility] [facility] [address] [id number] [place] [address] Feb, [facility] [facility] [address] [facility] [id number] [place] [address] 2567 Feb, [facility] [address] [id number] [place] [address] Jan, [facility] [address] [id number] [place] [address] 37[address] Jan, [facility] [address] [facility] [id number] [place] [address]- [address] 28 Dec, 2011 [facility] [address] [id number] [place] [address]- 9766 19 Dec, 2011 [facility] [address] [id number], [place] [address] 18 Dec, 2011 [facility] [address] [id number] [place] [address]861 18 Dec, 2011 [facility] [address] [facility] [id number] [place] [address]- 5846 04 Dec, 2011 [facility] [address] [facility] [id number], [place] [address] Nov, [facility] [address] [id number] [place] [address] 3024 Oct, [facility] [address] [id number] [place] [address]- 2625 Oct, [facility] [address] [id number] [place] [address]- 4667 Sep, [facility] [address] [id number] [place] [address]- 6213 Sep, [facility] [address] [id number] [place] [address]- 9175 Sep, [facility] [address] [id number] [place] [address]- 6362 Sep, [facility] [address] [id number] [place] [address]- 7663 Sep, [facility] [address] [id number] [place] [address]- [address]300 Sep, [facility] [address] [id number] [place] [address]- 5241 Sep, [facility] [address] [id number] [place] [address]- 1407 Sep, [facility] [address] [id number] [place] [address]- 3201 August, [facility] [address] [id number] [place] [address]- 4380 August, [facility] [address] [id number] [place] [address]- 8934 August, [facility] [address] [id number] [place] [address]- 5134 Jul, [facility] [address] [id number] [place] [address]- 6799 Jul, [facility] [facility] [address] [id number] [place] [address]- 2546 Jun, [facility] [address] [id number] [place] [address]- 8880 Jun, [facility] [facility] [address] [id number] [place] [address]- 9636 Jun, [facility] [facility] [address] [id number] [place] [address]- 3836 Jun, [facility] [address] [id number] [place] [address]- 6806 May, [facility] [address] [id number] [place] [address]- 1065 May, [facility] [address] [id number] [place] [address]- 2096 Apr, [facility] [address] [id number] [place] [address]- 4951 Apr, [facility] [address] [id number] [place] [address]- 4244 Apr, [facility] [address] [id number] [place] [address]- 1656 Mar, [facility] [address] [id number] [place] [address]- 7094 Mar, [facility] [address] [id number] [place] [address]- 7061 Mar, [facility] [address] [id number] [place] [address]- 1790 Feb, [facility] [address] [id number] [place] [address]- 8452 Feb, [facility] [address] [id number] [place] [address]- 4434 Feb, [facility] [address] [id number] [place] [address]- 1800 Feb, [facility] [address] [id number] [place] [address]- 3782 25 Jan, 2011 [facility] [address] [id number] [place] [address]- 5725 14 Jan, 2011 [facility] [address] [id number] [place] [address]- 7486 12 Jan, 2011 [facility] [address] [id number] [place] [address]- 4472 16 Dec, 2010 [facility] [address] [id number] [place] [address]- 4760 13 Oct, 2010 [facility] [address] [id number] [place] [address]- 7551 24 Mar, 2010 [facility] [address] [id number] [place] [address]- 1882 Feb, [facility] [address] [id number] [place] [address]- 3614 Feb, [facility] [address] [id number] [place] [address]- 3331 16 May, 2009 [facility] [address] [id number] [place] [address]- 8125 Apr, [facility] [address] [id number] [place] [address] 29 Mar, 2009 [facility] [facility] [address] [id number] [place] [address]- 6511 30 Jan, 2009 [facility] [facility] [address] [id number] [place] [address] 2545 15 Oct, 2008 [facility] [address] [id number] [place] [address]- 7896 16 Jul, 2008 [facility] [address] [id number] [place] [address]- 9236 04 Mar, 2008 [facility] [address] [id number] [place] [address]- 7294 Feb, [facility] [address] [facility] [id number] [place] [address]- [address]673 Jan, IMMUNIZATIONS No Known Immunizations SOCIAL HISTORY Never Assessed REASON FOR VISIT Controlled Med Refill 06/22/17 PLAN OF CARE VITAL SIGNS MEDICATIONS Medication Instructions Dosage Frequency Start Date End Date Duration Status MS Contin 15 mg Orally every 12 hrs 1 tablet 12h 05 Jun, 2017 28 days Active Lyrica 200 mg [...]
--- OUTSIDE RECORDS SUMMARY | 2018-07-05 12:49 | XMS REPORT ---
Author Author KATHYA FISCHER Organization [facility] [place] Address [address] [place] [address] Care Team Providers Care Field Reporter Name Role Phone KATHYA FISCHER Unavailable PROBLEMS Type Condition ICD9-CM Code NIH77-NE Code Onset Dates Condition Status SNOMED Code Problem Hypertension, benign I10 Active 15932995 Problem Obstructive sleep apnea G47.33 Active 37550570 Problem Controlled type 2 diabetes mellitus without complication, without long -term current use of insulin E11.9 Active 301155215 Problem 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 Active 51009643 Problem Arthritis M19.90 Active 3781459 Problem Uncontrolled type 2 diabetes mellitus without complication, without long-term current use of insulin E11.65 Active 735388144 Problem Polyneuropathy G62.9 Active 15148910 Problem Fibromyalgia M79.7 Active 608466610 ALLERGIES No Information ENCOUNTERS Encounter Location Date Diagnosis [facility] [place] [address] [address] Sep, [facility] [place] [address] [address]- [address]341 August, [facility] [place] [address] 78482- 4206 August, Fibromyalgia M79.7 [facility] [place] [address] [address]10- 7773 Jul, Hypertension, benign I10 [facility] [place] [address] [address]37- 3677 Jul, Fibromyalgia M79.7 [facility] [place] [address] 73203- 1165 Jul, [facility] [place] [address] 08739- 3757 Jun, [facility] [place] [id number] [place] [address] 11342- 6170 Jun, Hypertension, benign I10 ; Arthritis M19.90 ; 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 and Uncontrolled type 2 diabetes mellitus without complication, without long-term current use of insulin E11.65 [facility] [id number] [place] [address] 57737 -8360 06 Jun, 2017 Acute nasopharyngitis J00 and BMI 50.0-59.9, adult Z68.43 [facility] [place] [id number] [place] [address] 96812- 4963 Jun, Fibromyalgia M79.7 [facility] [place] [id number] [place] [address] 11818- 2112 14 May, 2017 [facility] [place] [address] 9[address]54- 2939 02 May, 2017 Fibromyalgia M79.7 [facility] [place] [id number] [place] [address] 41416- 0603 Apr, Fibromyalgia M79.7 [facility] [place] [address] 74833- 3588 Apr, [facility] [place] [id number] [place] [address] 65324- 3707 Apr, [facility] [place] [id number] [place] [address] 17343- 7243 Apr, Arthritis M19.90 [facility] [place] [id number] [place] [address] 98975- 9677 Apr, Arthritis M19.90 [facility] [place] [address] 16980- 0171 Apr, Arthritis M19.90 and Controlled type 2 diabetes mellitus without complication, without long-term current use of insulin E11.9 [facility] [place] [id number] [place] [address] 32765- 0675 Apr, [facility] [place] [id number] [place] [address] 80770- 9115 Apr, Fibromyalgia M79.7 [facility] [place] [id number] [place] [address] 14428- 0818 Mar, [facility] [place] [id number] [place] [address] 36967- 6156 Mar, [facility] [place] [id number] [place] [address] 63600- 7265 Mar, Fibromyalgia M79.7 [facility] [place] [id number] [place] [address] 58535- 4829 Feb, [facility] [place] [id number] [place] [address] 49518- 1028 Feb, [facility] [place] [id number] [place] [address] 31372- 9371 Feb, [facility] [place] [id number] [place] [address] 72859- 4203 Feb, Fibromyalgia M79.7 [facility] [place] [id number] [place] [address] 33844- 5024 Feb, Diabetes type 2, uncontrolled E11.65 and Encounter for immunization Z23 [facility] [place] [id number] [place] [address] 77461- 6880 Jan, [facility] [place] [id number] [place] [address] 97614- 1241 Jan, Fibromyalgia M79.7 [facility] [place] [id number] [address]- 1559 Dec, [facility] [place] [id number] [place] [address] 79710- 8545 Dec, Fibromyalgia M79.7 [facility] [place] [id number] [place] [address] 42704- 2671 Nov, [facility] [place] [id number] [address]- 7747 Nov, [facility] [place] [id number] [place] [address] 84982- 1125 Nov, 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 and Polyneuropathy G62.9 [facility] [place] [id number] [place] [address] 94421- 0596 Nov, [facility] [place] [id number] [place] [address] 22622- 5172 Nov, [facility] [place] [id number] [place] [address] 43892- 9651 Oct, Diabetes type 2, uncontrolled E11.65 [facility] [place] [id number] [place] [address] 46008- 1711 Oct, Diabetes type 2, uncontrolled E11.65 ; Polyneuropathy G62.9 and Pain in right wrist M25.531 [facility] [place] [id number] [place] [address] 32633- 4202 Oct, [facility] [place] [id number] [place] [address] 40223- 8591 Oct, Pain in left shoulder M25.512 [facility] [place] [id number] [place] [address] 12907- 2540 Sep, [facility] [place] [id number] [place] [address] 02221- 5247 Sep, Pain in left shoulder M25.512 [facility] [place] [id number] [place] [address] 99161- 5387 Sep, [facility] [place] [id number] [place] [address] 03513- 9466 August, Pain in left shoulder M25.512 [facility] [place] [id number] [place] [address] 77739- 9412 Jul, [facility] [place] [id number] [place] [address] 39469- 9495 14 Jul, 2016 [facility] [place] [address] [address]- 5765 Jul, Pain in left shoulder M25.512 [facility] [place] [address] [address]- 4749 Jun, [facility] [place] [id number] [place] [address] 02333- 9551 Jun, [facility] [place] [id number] [place] [address] 52424- 6805 Jun, Diabetes type 2, uncontrolled E11.65 ; Fibromyalgia M79.7 and Arthritis M19.90 [facility] [id number] [place] [address] 39966- 3867 Jun, Pain in left shoulder M25.512 [facility] [id number] [place] [address] 39097- 9131 May, [facility] [place] [id number] [place] [address] 75499- 7268 May, Diabetes type 2, controlled E11.9 [facility] [place] [id number] [place] [address] 56294- 5884 May, [facility] [place] [address] [address]- 0649 May, Uncontrolled type 2 diabetes mellitus without complication, without long-term current use of insulin E11.65 [facility] [place] [address] [address]- 3625 May, Pain in left shoulder M25.512 [facility] [place] [id number] [place] [address] 14723- 8665 03 May, 2016 Diabetes type 2, controlled E11.9 and Uncontrolled type 2 diabetes mellitus without complication, without long-term current use of insulin E11.65 [facility] [place] [address] [address]- 2711 Apr, [facility] [place] [address] [id number] [place] [address]- 0001 Apr, [facility] [place] [address] [id number] [place] [address]- 8429 Mar, [facility] [place] [address] [id number] [place] [address]- 3873 Mar, [facility] [place] [address] [id number] [place] [address], [place] [address]- 6033 Mar, [facility] [place] [address] [id number] [place] [address]- 1017 Feb, [facility] [address] [id number] [id number] Feb, Dental examination Z01.20 [facility] [place] [address] [id number] [place] [address]- 1809 Jan, [facility] [place] [address] [id number] [address]- 7263 Dec, [facility] [place] [address] [id number] [place] [address]- 3824 Dec, [facility] [place] [address] [place] [address]- 1556 Dec, [facility] [place] [address] [id number] [address]- 5034 Dec, Diabetes type 2, controlled E11.9 [facility] [place] [address] [id number], [place] [address]- 7972 Nov, [facility] [place] [address] [id number] [place] [address]- 1364 Nov, [facility] [place] [address] [id number] [place] [address]- 8735 Nov, [facility] [place] [address] [id number] [place] [address]- 7976 Nov, [facility] [place] [address] [place] [address]- 2658 Oct, [facility] [place] [address] [place] [address]- 8425 Oct, [facility] [place] [address] [place] [address]- 7927 Oct, [facility] [place] [address] [place] [address]- 1527 Sep, [facility] [place] [address] [facility] [id number] [place] [address]- 4407 Sep, Diabetes type 2, controlled E11.9 [facility] [place] [address] [place] [address]- 7210 Sep, Diabetes type 2, controlled E11.9 [facility] [place] [address] [place] [address]- 7890 August, [facility] [place] [address] [address]- 3620 August, [facility] [place] [address] [address]- 7940 August, Type 2 diabetes mellitus without complication E11.9 and Pain in left shoulder M25.512 [facility] [place] [address] [place] [address]- 6558 Jul, [facility] [place] [address] [address]- 6469 Jul, Diabetes type 2, controlled E11.9 and Hypertension, benign I10 [facility] [place] [address] [place] [address]- 1961 Jun, [facility] [place] [address] [place] [address]- 6186 Jun, [facility] [place] [id number] [place] [address]- 3679 Jun, Diabetes 250.00 [facility] [place] [id number] [address]- 0178 Jun, [facility] [place] [id number] [place] [address] 86898- 4248 May, Diabetes type 2, uncontrolled E11.65 [facility] [place] [id number] [place] [address] 09357- 2755 May, [facility] [place] [id number] [place] [address] 61617- 5904 Apr, Type 2 diabetes mellitus without complication E11.9 [facility] [place] [id number] [place] [address] 07589- 6408 Apr, Encounter for immunization Z23 [facility] [place] [id number] [place] [address] 08640- 7219 Apr, [facility] [place] [id number] [place] [address] 42105- 9736 Mar, [facility] [place] [id number] [place] [address] 38490- 1171 Mar, [facility] [place] [id number] [place] [address] 09788- 1771 Mar, [facility] [place] [id number] [place] [address] 26630- 5843 Feb, [facility] [place] [id number] [place] [address] 42014- 4586 Jan, [facility] [place] [id number] [place] [address] 35353- 6941 Jan, [facility] [place] [id number] [place] [address] 45206- 1544 Jan, [facility] [place] [id number] [place] [address] 91931- 2170 Dec, Diabetes 250.00 and COPD (chronic obstructive pulmonary disease) 496 [facility] [place] [id number] [place] [address] 62278- 2546 Dec, [facility] [place] [address] [address]- 1371 Dec, [facility] [place] [address] [address]- 5630 Nov, [facility] [place] [address] [address]- 0050 Oct, Diabetes 250.00 [facility] [place] [id number] [place] [address] 87602- 1763 Sep, [facility] [place] [id number] [place] [address] 11663- 0578 Sep, [facility] [place] [id number] [place] [address] 71498- 3372 Sep, [facility] [place] [id number] [place] [address] 94901- 4057 Sep, Diabetes 250.00 [facility] [place] [address] [address]- 2769 Sep, [facility] [place] [id number] [place] [address] 11803- 5969 Sep, [facility] [place] [address] [address]- 9426 August, Hypertension, essential, benign 401.1 ; Coronary atherosclerosis of [place] coronary artery 414.01 and Diabetic neuropathy associated with type 2 diabetes mellitus 250.60 [facility] [place] [id number] [address]- 6386 Jul, [facility] [place] [address] 0788 Jul, [facility] [place] [address] 0697 Jul, [facility] [place] [id number] 1065 Jun, [facility] [place] [facility] [address] [id number] [place] [address]- 2714 Jun, [facility] [place] [facility] [address] [id number] [place] [address]- 7261 Jun, [facility] [place] [facility] [address] [id number] [place] [address]- 7203 Jun, [facility] [place] [facility] [address] [id number] [place] [address]- 1650 Jun, [facility] [place] [facility] [address] [id number] [place] [address]- 5484 May, [facility] [place] [facility] [address] [id number] [place] [address]- 0384 May, [facility] [place] [facility] [address] [id number] [place] [address]- 6872 May, [facility] [place] [facility] [address] [id number] [place] [address]- 5019 May, [facility] [place] [facility] [address] [id number] [place] [address]- 6412 May, [facility] [place] [facility] [address] [id number] [place] [address]- 5064 May, [facility] [place] [facility] [address] [id number] [place] [address] May, [facility] [place] [facility] [address] [id number] [place] [address] Apr, [facility] [place] [facility] [address] [id number] [place] [address] Apr, [facility] [place] [facility] [address] [id number] [place] [address] Apr, [facility] [place] [facility] [address] [id number] [place] [address] Apr, [facility] [place] [facility] [address] [id number] [place] [address] Mar, [facility] [place] [facility] [address] [id number] [place] [address] Mar, [facility] [place] [facility] [address] [id number] [place] [address] Mar, [facility] [place] [facility] [address] [id number] [place] [address] Mar, [facility] [place] [facility] [address] [id number] [place] [address] Feb, [facility] [place] [facility] [address] [id number] [place] [address] Feb, [facility] [place] [facility] [address] [id number] [place] [address] Feb, [facility] [place] [facility] [address] [id number] [place] [address] Feb, [facility] [place] [facility] [address] [id number] [place] [address] Feb, [facility] [place] [facility] [address] [id number] [place] [address] Feb, [facility] [place] [facility] [address] [facility] [id number] [place] [address] Feb, [facility] [place] [facility] [address] [id number] [place] [address] Jan, [facility] [place] [facility] [address] [id number], [place] [address] Jan, [facility] [place] [facility] [address] [id number], [place] [address] Dec, [facility] [place] [facility] [address] [id number] [place] [address] Dec, [facility] [place] [facility] [address] [id number], [place] [address] Dec, [facility] [place] [facility] [address] [id number] [place] [address] 10 Dec, 2013 [facility] [place] [facility] [address] [id number] [place] [address] 04 Dec, 2013 [facility] [place] [facility] [address] [id number] [place] [address] 04 Dec, 2013 [facility] [place] [facility] [address] [id number] [place] [address] 03 Dec, 2013 [facility] [place] [facility] [address] [id number] [place] [address] Dec, 2013 [facility] [place] [facility] [address] [id number] [place] [address] Nov, [facility] [place] [facility] [address] [id number] [place] [address] Nov, [facility] [place] [facility] [address] [id number] [place] [address] Nov, [facility] [place] [facility] [address] [id number] [place] [address] Nov, [facility] [place] [facility] [address] [id number] [place] [address] Oct, [facility] [place] [facility] [address] [id number] [place] [address] Oct, [facility] [place] [facility] [address] [id number] [place] [address] Oct, [facility] [place] [facility] [address] [id number] [place] [address] Oct, [facility] [place] [facility] [address] [id number] [place] [address] Oct, [facility] [place] [facility] [address] [id number] [place] [address] Oct, [facility] [place] [facility] [address] [id number] [place] [address] 62[address] Oct, [facility] [place] [facility] [address] [id number] [place] [address] 2454 Oct, [facility] [place] [facility] [address] [id number] [place] [address] Sep, [facility] [place] [facility] [address] [id number] [place] [address] Sep, [facility] [place] [facility] [address] [id number] [place] [address] 6[address] August, [facility] [place] [facility] [address] [id number] [place] [address] August, [facility] [place] [facility] [address] [id number] [place] [address] 135[address] Jul, [facility] [place] [facility] [address] [id number] [place] [address] 5658 Jul, [facility] [place] [facility] [address] [id number] [place] [address] 1815 Jul, [facility] [place] [facility] [address] [id number] [place] [address] 1459 Jul, [facility] [place] [facility] [address] [id number] [place] [address]- 2092 Jul, [facility] [place] [facility] [address] [id number] [place] [address] 9730 Jul, [facility] [place] [facility] [address] [id number], [place] [address] Jul, [facility] [place] [facility] [address] [id number] [place] [address]- 4824 Jul, [facility] [place] [facility] [address] [id number] [place] [address]- 1859 Jun, [facility] [place] [facility] [address] [id number] [place] [address]- 1671 Jun, [facility] [place] [facility] [address] [id number] [place] [address]- 4945 17 Jun, 2013 [facility] [address] [id number] [place] [address] 7336 Jun, [facility] [address] [id number] [place] [address]- [address] 18 May, 2013 [facility] [address] [id number] [place] [address]- 2647 18 May, 2013 [facility] [address] [id number] [place] [address]- 5047 Apr, [facility] [address] [id number] [place] [address]- 1142 Apr, [facility] [address] [id number] [place] [address]- 1717 Mar, [facility] [address] [id number] [place] [address] 5958 Mar, [facility] [address] [id number] [place] [address]- 3051 Mar, [facility] [address] [id number] [place] [address]- 3473 Mar, [facility] [address] [id number] [place] [address] 3686 Mar, [facility] [place] [facility] [address] [id number] [place] [address] 9556 Mar, [facility] [address] [id number] [place] [address]- 8646 Feb, [facility] [place] [facility] [address] [id number] [place] [address] Feb, [facility] [place] [facility] [address] [id number] [place] [address]- 9306 Feb, [facility] [place] [facility] [address] [id number] [place] [address]- 9580 Feb, [facility] [place] [facility] [address] [id number] [place] [address]- 3310 18 Feb, 2013 [facility] [place] [facility] [address] [id number] [place] [address]- 8909 18 Feb, 2013 [facility] [place] [facility] [address] [id number] [place] [address]- 3035 Feb, [facility] [place] [facility] [address] [id number] [place] [address]- 9071 Feb, [facility] [place] [facility] [address] [id number] [place] [address]- 7581 15 Jan, 2013 [facility] [place] [facility] [address] [id number] [place] [address]- 2975 15 Jan, 2013 [facility] [place] [facility] [address] [id number] [place] [address]- 8883 14 Jan, 2013 [facility] [place] [facility] [address] [id number] [place] [address]- 7848 14 Jan, 2013 [facility] [place] [facility] [address] [id number] [place] [address]- 1378 18 Dec, 2012 [facility] [place] [facility] [address] [id number] [address] 275[address] Dec, [facility] [place] [facility] [address] [id number], [place] [address]27 2012 [facility] [place] [facility] [address] [id number], [place] [address]112 Nov, [facility] [place] [facility] [address] [id number] [place] [address]- 9885 Nov, [facility] [place] [facility] [address] [id number], [place] [address]- 6786 16 Oct, 2012 [facility] [place] [facility] [address] [id number], [place] [address]- 1762 Oct, [facility] [place] [facility] [address] [id number], [place] [address] 5555 Oct, [facility] [address] [id number] [place] [address]- 3723 Sep, [facility] [place] [facility] [address] [id number] [place] [address]- 3113 Sep, [facility] [address] [id number] [place] [address]- 6109 Sep, [facility] [address] [id number] [place] [address]- 1811 Sep, [facility] [address] [id number] [place] [address]- 5814 Sep, [facility] [address] [id number] [place] [address]- 2515 Sep, [facility] [address] [id number] [place] [address]- 9720 August, [facility] [address] [id number] [place] [address]- 9020 August, [facility] [address] [id number] [place] [address]- 3941 August, [facility] [address] [id number] [place] [address]- 4144 August, [facility] [address] [id number] [place] [address]- 3040 August, [facility] [place] [facility] [address] [id number] [place] [address]- 2352 August, [facility] [place] [facility] [address] [id number] [place] [address]- 1616 August, [facility] [place] [facility] [address] [id number] [place] [address]- 6074 Jul, [facility] [place] [facility] [address] [id number] [place] [address]- 8045 Jul, [facility] [place] [facility] [address] [id number] [place] [address]- 0122 Jun, [facility] [place] [facility] [address] [id number] [place] [address]- 1636 Jun, [facility] [place] [facility] [address] [id number] [place] [address]- 1656 May, [facility] [place] [facility] [address] [id number] [place] [address]- 7816 May, [facility] [place] [facility] [address] [id number] [place] [address]- 8678 Apr, [facility] [place] [facility] [address] [id number] [place] [address]- 2180 Mar, [facility] [place] [facility] [address] [id number] [place] [address]- 2122 Mar, [facility] [place] [facility] [address] [id number] [place] [address]- 3801 Mar, [facility] [place] [facility] [address] [id number] [place] [address]- 6708 Mar, [facility] [place] [facility] [address] [id number] [place] [address]- 6538 Mar, [facility] [place] [facility] [address] [id number] [place] [address]- 0017 Mar, [facility] [place] [facility] [address] [id number] [place] [address] 2542 Feb, [facility] [place] [facility] [address] [id number] [place] [address] 2543 Feb, [facility] [place] [facility] [address] [id number] [place] [address] 2546 Feb, [facility] [place] [facility] [address] [id number] [place] [address] 2546 Feb, [facility] [place] [facility] [address] [id number] [place] [address]- 9520 Feb, [facility] [place] [facility] [address] [id number] [place] [address]- 3295 Feb, [facility] [place] [facility] [address] [id number] [place] [address]- 1936 Feb, [facility] [place] [facility] [address] [facility] [id number] [place] [address]- 6636 Feb, [facility] [place] [facility] [address] [id number] [place] [address]- 6558 Jan, [facility] [place] [facility] [address] [id number] [place] [address]- 7362 Jan, [facility] [place] [facility] [address] [id number] [place] [address]- 0058 28 Dec, 2011 [facility] [place] [facility] [address] [id number] [place] [address]- 7319 Dec, [facility] [place] [facility] [address] [id number], [place] [address]- 1695 Dec, [facility] [place] [facility] [address] [id number] [place] [address]- 4393 Dec, [facility] [place] [facility] [address] [facility] [id number] [place] [address]- 4630 Dec, [facility] [place] [facility] [address] [facility] [id number], [place] [address]- 9991 Nov, [facility] [place] [facility] [address] [id number], [place] [address]- 2134 Oct, [facility] [place] [facility] [address] [id number] [place] [address]- 1228 Oct, [facility] [place] [facility] [address] [facility] [id number], [place] [address]- 2961 Sep, [facility] [place] [facility] [address] [facility] [id number] [place] [address]- 2283 Sep, [facility] [place] [facility] [address] [id number] [place] [address]- 3576 Sep, [facility] [place] [facility] [address] [id number] [place] [address]- 5126 Sep, [facility] [place] [facility] [address] [id number] [place] [address]- 7361 Sep, [facility] [place] [facility] [address] [id number] [place] [address]- 3057 Sep, [facility] [place] [facility] [address] [id number] [place] [address]- 8427 Sep, [facility] [place] [facility] [address] [id number] [place] [address]- 0374 Sep, [facility] [place] [facility] [address] [id number] [place] [address]- 1172 August, [facility] [place] [facility] [address] [id number] [place] [address]- 2156 August, [facility] [place] [facility] [address] [id number] [place] [address]- 8228 August, [facility] [place] [facility] [address] [id number] [place] [address]- 4463 Jul, [facility] [place] [facility] [address] [id number] [place] [address]- 8526 Jul, [facility] [place] [facility] [address] [id number] [place] [address]- 7221 Jun, [facility] [place] [facility] [address] [id number] [place] [address]- 2735 Jun, [facility] [place] [facility] [address] [id number] [place] [address]- 0981 Jun, [facility] [place] [facility] [address] [id number] [place] [address]- 6197 Jun, [facility] [place] [facility] [address] [id number] [place] [address]- 2458 May, [facility] [place] [facility] [address] [id number] [place] [address]- 1658 May, [facility] [place] [facility] [address] [id number] [place] [address]- 0009 Apr, [facility] [place] [facility] [address] [id number] [place] [address]- 4865 Apr, [facility] [place] [facility] [address] [id number] [place] [address]- 6300 Apr, [facility] [place] [facility] [address] [id number] [place] [address]- 7681 Mar, [facility] [place] [facility] [address] [id number] [place] [address]- 4482 Mar, [facility] [place] [facility] [address] [id number] [place] [address]- 5810 Mar, [facility] [place] [facility] [address] [id number], [place] [address]- 0579 Feb, [facility] [place] [facility] [address] [id number] [place] [address]- 7523 Feb, [facility] [place] [facility] [address] [id number], [place] [address]- 2801 Feb, [facility] [place] [facility] [address] [id number], [place] [address]- 7497 Feb, [facility] [place] [facility] [address] [id number], [place] [address]- 1903 Jan, [facility] [place] [facility] [address] [id number], [place] [address]- 1865 Jan, [facility] [place] [facility] [address] [id number], [place] [address]- 7989 Jan, [facility] [place] [facility] [address] [id number], [place] [address]- 2904 16 Dec, 2010 [facility] [place] [facility] [address] [id number], [place] [address]- 1984 Oct, [facility] [place] [id number] [address]- 2806 Mar, [facility] [place] [id number], [place] [address]- 0389 Feb, [facility] [place] [id number], [place] [address]- 0301 Feb, [facility] [place] [id number] [place] [address]- 0172 May, [facility] [place] [id number] [place] [address]- 6842 Apr, [facility] [place] [id number] [place] [address] 12871- 6385 Mar, [facility] [place] [id number] [place] [address] 65[address]- 3976 Jan, [facility] [place] [id number] [place] [address]- 3828 Oct, [facility] [place] [id number] [place] [address] 74778- 4008 Jul, [facility] [place] [id number], [place] [address]- 4478 Mar, [facility] [place] [address], [place] [address]- 0579 Feb, [facility] [place] [id number], [place] [address]- 2727 Jan, IMMUNIZATIONS No Known Immunizations SOCIAL HISTORY Never Assessed REASON FOR VISIT Controlled Med Refill PLAN OF CARE VITAL SIGNS MEDICATIONS Medication Instructions Dosage Frequency Start Date End Date Duration Status MS Contin 15 mg Orally every 12 hrs 1 tablet 12h 17 Jan, 2017 28 days Active RESULTS No Results [...]
--- OUTSIDE RECORDS SUMMARY | 2018-07-05 12:50 | XMS REPORT ---
Author Author KATHYA FISCHER Organization [facility] [place] Address [address] [place] [address] Care Team Providers [facility] Director Name Role Phone KATHYA FISCHER Unavailable PROBLEMS Type Condition ICD9-CM Code UYF52-IO Code Onset Dates Condition Status SNOMED Code Problem Hypertension, benign I10 Active 22059601 Problem Obstructive sleep apnea G47.33 Active 80806053 Problem Controlled type 2 diabetes mellitus without complication, without long -term current use of insulin E11.9 Active 888775353 Problem 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 Active 41294177 Problem Arthritis M19.90 Active 4972514 Problem Uncontrolled type 2 diabetes mellitus without complication, without long-term current use of insulin E11.65 Active 854081089 Problem Polyneuropathy G62.9 Active 65614030 Problem Fibromyalgia M79.7 Active [id number] ALLERGIES No Information ENCOUNTERS Encounter Location Date Diagnosis [facility] [place] [address] [address]- [address]69 Sep, [facility] [place] [address] 46325- 7461 August, [facility] [place] [address] 39894- 1145 August, Fibromyalgia M79.7 [facility] [place] [address] 39093- 0303 Jul, Hypertension, benign I10 [facility] [place] [address] 56361- 2067 Jul, Fibromyalgia M79.7 [facility] [place] [address] 57161- 7951 Jul, [facility] [place] [address] 86752- 7162 Jun, [facility] [place] [id number] [place] [address] 24599- 3786 Jun, Hypertension, benign I10 ; Arthritis M19.90 ; meterman current use 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 Z79.891 and Uncontrolled type 2 diabetes mellitus without complication, without long-term current use of insulin E11.65 [facility] [id number] [place] [address] 08070 -1430 06 Jun, 2017 Acute nasopharyngitis J00 and BMI 50.0-59.9, adult Z68.43 [facility] [place] [id number] [place] [address] 89152- 1477 Jun, Fibromyalgia M79.7 [facility] [place] [id number] [place] [address] 90345- 2581 14 May, 2017 [facility] [place] [address] 60150- 3048 02 May, 2017 Fibromyalgia M79.7 [facility] [place] [id number] [place] [address] 93387- 1187 Apr, Fibromyalgia M79.7 [facility] [place] [address] 81987- 0588 Apr, [facility] [place] [id number] [place] [address] 05071- 0303 Apr, [facility] [place] [id number] [place] [address] 83134- 8081 Apr, Arthritis M19.90 [facility] [place] [id number] [place] [address] 22620- 0416 Apr, Arthritis M19.90 [facility] [place] [address] 55157- 2815 Apr, Arthritis M19.90 and Controlled type 2 diabetes mellitus without complication, without long-term current use of insulin E11.9 [facility] [place] [id number] [place] [address] 47399- 4827 Apr, [facility] [place] [id number] [place] [address] 06726- 1110 Apr, Fibromyalgia M79.7 [facility] [place] [id number] [place] [address] 93347- 8324 Mar, [facility] [place] [id number] [place] [address] 77763- 6262 Mar, [facility] [place] [id number] [place] [address] 66971- 4584 Mar, Fibromyalgia M79.7 [facility] [place] [id number] [place] [address] 71375- 1329 Feb, [facility] [place] [id number] [place] [address] 86344- 7937 Feb, [facility] [place] [id number] [place] [address] 77524- 5942 Feb, [facility] [place] [id number] [place] [address] 97251- 5481 Feb, Fibromyalgia M79.7 [facility] [place] [id number] [place] [address] 82229- 4379 Feb, Diabetes type 2, uncontrolled E11.65 and Encounter for immunization Z23 [facility] [place] [id number] [place] [address] 94943- 7371 Jan, [facility] [place] [id number] [place] [address] 98856- 3273 Jan, Fibromyalgia M79.7 [facility] [place] [id number] [address]- 4981 Dec, [facility] [place] [id number] [place] [address] 30009- 9508 Dec, Fibromyalgia M79.7 [facility] [place] [id number] [place] [address] 21420- 3564 Nov, [facility] [place] [id number] [address]- 8843 Nov, [facility] [place] [id number] [place] [address] 16130- 2713 Nov, 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 and Polyneuropathy G62.9 [facility] [place] [id number] [place] [address] 32369- 8793 Nov, [facility] [place] [id number] [place] [address] 10194- 7421 Nov, [facility] [place] [id number] [place] [address] 13259- 8400 Oct, Diabetes type 2, uncontrolled E11.65 [facility] [place] [id number] [place] [address] 37575- 4670 Oct, Diabetes type 2, uncontrolled E11.65 ; Polyneuropathy G62.9 and Pain in right wrist M25.531 [facility] [place] [id number] [place] [address] 81656- 9033 Oct, [facility] [place] [id number] [place] [address] 15373- 1178 Oct, Pain in left shoulder M25.512 [facility] [place] [id number] [place] [address] 29590- 1980 Sep, [facility] [place] [id number] [place] [address] 66754- 8717 Sep, Pain in left shoulder M25.512 [facility] [place] [id number] [place] [address] 21308- 7284 Sep, [facility] [place] [id number] [place] [address] 39838- 3252 August, Pain in left shoulder M25.512 [facility] [place] [id number] [place] [address] 35634- 1876 Jul, [facility] [place] [id number] [place] [address] 08154- 6975 14 Jul, 2016 [facility] [place] [address] [address]- 0996 Jul, Pain in left shoulder M25.512 [facility] [place] [address], [place] [address]- 2628 Jun, [facility] [place] [id number] [place] [address] 29627- 4432 Jun, [facility] [place] [id number] [place] [address] 17694- 8606 Jun, Diabetes type 2, uncontrolled E11.65 ; Fibromyalgia M79.7 and Arthritis M19.90 [place] [id number] [place] [address] 94765- 7061 Jun, Pain in left shoulder M25.512 [place] [id number] [place] [address] 36565- 8723 May, [facility] [place] [id number] [place] [address] 68911- 9704 May, Diabetes type 2, controlled E11.9 [facility] [place] [id number] [place] [address] 11849- 3885 May, [facility] [place] [address] [address]- 3231 May, Uncontrolled type 2 diabetes mellitus without complication, without long-term current use of insulin E11.65 [facility] [place] [address], [place] [address]- 3165 May, Pain in left shoulder M25.512 [facility] [place] [id number] [place] [address] 23679- 6481 03 May, 2016 Diabetes type 2, controlled E11.9 and Uncontrolled type 2 diabetes mellitus without complication, without long-term current use of insulin E11.65 [facility] [place] [address], [place] [address]- 7350 Apr, [facility] [place] [address] [id number] [place] [address]- 6654 Apr, [facility] [place] [address] [id number] [place] [address]- 0469 Mar, [facility] [place] [address] [id number] [place] [address]- 2321 Mar, [facility] [place] [id number] [place] [address], [place] [address]- 9735 Mar, [facility] [place] [address] [id number] [place] [address]- 6171 Feb, [facility] [address] [id number] [id number] Feb, Dental examination Z01.20 [facility] [place] [address] [id number] [place] [address]- 7211 Jan, [facility] [place] [address] [id number] [address]- 2920 Dec, [facility] [place] [address] [id number] [place] [address]- 2231 Dec, [facility] [place] [address] [place] [address]- 5672 Dec, [facility] [place] [address] [id number], [place] [address]- 3815 Dec, Diabetes type 2, controlled E11.9 [facility] [place] [address] [id number] [address]- 9300 Nov, [facility] [place] [address] [id number] [place] [address]- 1424 Nov, [facility] [place] [address] [id number] [place] [address]- 4822 Nov, [facility] [place] [address] [id number] [place] [address]- 6122 Nov, [facility] [place] [address] [place] [address]- 5448 Oct, [facility] [place] [address] [place] [address]- 2475 Oct, [facility] [place] [address] [place] [address]- 1851 Oct, [facility] [place] [address] [place] [address]- 1449 Sep, [facility] [place] [address] [facility] [id number] [place] [address]- 2047 Sep, Diabetes type 2, controlled E11.9 [facility] [place] [address] [place] [address]- 9020 Sep, Diabetes type 2, controlled E11.9 [facility] [place] [address] [place] [address]- 7139 August, [facility] [place] [address], [place] [address]- 3390 August, [facility] [place] [address], [place] [address]- 9500 August, Type 2 diabetes mellitus without complication E11.9 and Pain in left shoulder M25.512 [facility] [place] [address] [place] [address]- 7124 Jul, [facility] [place] [address], [place] [address]- 0170 Jul, Diabetes type 2, controlled E11.9 and Hypertension, benign I10 [facility] [place] [address] [place] [address]- 6616 Jun, [facility] [place] [address] [place] [address]- 2447 Jun, [facility] [place] [id number] [place] [address]- 7844 Jun, Diabetes 250.00 [facility] [place] [id number], [place] [address]- 9532 Jun, [facility] [place] [id number] [place] [address] 05644- 5588 May, Diabetes type 2, uncontrolled E11.65 [facility] [place] [id number] [place] [address] 47419- 2172 May, [facility] [place] [id number] [place] [address] 04727- 5634 Apr, Type 2 diabetes mellitus without complication E11.9 [facility] [place] [id number] [place] [address] 32113- 6394 Apr, Encounter for immunization Z23 [facility] [place] [id number] [place] [address] 29542- 0389 Apr, [facility] [place] [id number] [place] [address] 87637- 2730 Mar, [facility] [place] [id number] [place] [address] 17172- 1607 Mar, [facility] [place] [id number] [place] [address] 96670- 4913 Mar, [facility] [place] [id number] [place] [address] 00821- 1815 Feb, [facility] [place] [id number] [place] [address] 46981- 5570 Jan, [facility] [place] [id number] [place] [address] 86586- 5326 Jan, [facility] [place] [id number] [place] [address] 01040- 7152 Jan, [facility] [place] [id number] [place] [address] 84678- 8740 Dec, Diabetes 250.00 and COPD (chronic obstructive pulmonary disease) 496 [facility] [place] [id number] [place] [address] 06652- 2546 Dec, [facility] [place] [address], [place] [address]- 3069 Dec, [facility] [place] [address], [place] [address]- 0443 Nov, [facility] [place] [address], [place] [address]- 9587 Oct, Diabetes 250.00 [facility] [place] [id number] [place] [address] 18096- 0068 Sep, [facility] [place] [id number] [place] [address] 21638- 5036 Sep, [facility] [place] [id number] [place] [address] 56905- 4569 Sep, [facility] [place] [id number] [place] [address] 80286- 1739 Sep, Diabetes 250.00 [facility] [place] [address], [place] [address]- 9021 Sep, [facility] [place] [id number] [place] [address] 21195- 8135 Sep, [facility] [place] [address], [place] [address]- 0326 August, Hypertension, essential, benign 401.1 ; Coronary atherosclerosis of [place] coronary artery 414.01 and Diabetic neuropathy associated with type 2 diabetes mellitus 250.60 [facility] [place] [id number], [place] [address]- 8863 Jul, [facility] [place] [address]- 7972 Jul, [facility] [place] [address] 3076 Jul, [facility] [place] [id number] 0972 Jun, [facility] [place] [facility] [address] [id number] [place] [address]- 5049 Jun, [facility] [place] [facility] [address] [id number] [place] [address]- 4824 Jun, [facility] [place] [facility] [address] [id number] [place] [address]- 4386 Jun, [facility] [place] [facility] [address] [id number] [place] [address]- 6395 Jun, [facility] [place] [facility] [address] [id number] [place] [address]- 6925 May, [facility] [place] [facility] [address] [id number] [place] [address]- 0664 May, [facility] [place] [facility] [address] [id number] [place] [address]- 4261 May, [facility] [place] [facility] [address] [id number] [place] [address]- 1489 May, [facility] [place] [facility] [address] [id number] [place] [address]- 8339 May, [facility] [place] [facility] [address] [id number] [place] [address]- 1437 May, [facility] [place] [facility] [address] [id number] [place] [address]- 3393 May, [facility] [place] [facility] [address] [id number] [place] [address]- 2596 Apr, [facility] [place] [facility] [address] [id number] [place] [address]- 1479 Apr, [facility] [place] [facility] [address] [id number] [place] [address]- 4935 Apr, [facility] [place] [facility] [address] [id number] [place] [address]- 2224 Apr, [facility] [place] [facility] [address] [id number] [place] [address]- 7391 Mar, [facility] [place] [facility] [address] [id number] [place] [address]- 8325 Mar, [facility] [place] [facility] [address] [id number] [place] 5790 Mar, [facility] [place] [facility] [address] [id number] [place] 6557 Mar, [facility] [place] [facility] [address] [id number] [place] [address]- 2778 Feb, [facility] [place] [facility] [address] [id number] [place] [address]- 4359 Feb, [facility] [place] [facility] [address] [id number] [place] [address]- 3788 Feb, [facility] [place] [facility] [address] [id number] [place] [address]- 7844 Feb, [facility] [place] [facility] [address] [id number] [place] [address]- 6890 Feb, [facility] [place] [facility] [address] [id number] [place] [address]- 0760 Feb, [facility] [place] [facility] [address] [facility] [id number] [place] [address]- 3068 Feb, [facility] [place] [facility] [address] [id number] [place] [address]- 8278 Jan, [facility] [place] [facility] [address] [id number], [place] [address] Jan, [facility] [place] [facility] [address] [id number], [place] [address] Dec, [facility] [place] [facility] [address] [id number] [place] [address] Dec, [facility] [place] [facility] [address] [id number], [place] [address] Dec, [facility] [place] [facility] [address] [id number] [place] [address] 10 Dec, 2013 [facility] [place] [facility] [address] [id number] [place] [address] 04 Dec, 2013 [facility] [place] [facility] [address] [id number] [place] [address] 04 Dec, 2013 [facility] [place] [facility] [address] [id number] [place] [address] 03 Dec, 2013 [facility] [place] [facility] [address] [id number] [place] [address] Dec, 2013 [facility] [place] [facility] [address] [id number] [place] [address] Nov, [facility] [place] [facility] [address] [id number] [place] [address] Nov, [facility] [place] [facility] [address] [id number] [place] [address] Nov, [facility] [place] [facility] [address] [id number] [place] [address] Nov, [facility] [place] [facility] [address] [id number] [place] [address] Oct, [facility] [place] [facility] [address] [id number] [place] [address] Oct, [facility] [place] [facility] [address] [id number] [place] [address] Oct, [facility] [place] [facility] [address] [id number] [place] [address] Oct, [facility] [place] [facility] [address] [id number] [place] [address] Oct, [facility] [place] [facility] [address] [id number] [place] [address] Oct, [facility] [place] [facility] [address] [id number] [place] [address] 39[address] Oct, [facility] [place] [facility] [address] [id number] [place] [address] Oct, [facility] [place] [facility] [address] [id number] [place] [address] Sep, [facility] [place] [facility] [address] [id number] [place] [address] Sep, [facility] [place] [facility] [address] [id number] [place] [address] August, [facility] [place] [facility] [address] [id number] [place] [address] August, [facility] [place] [facility] [address] [id number] [place] [address] Jul, [facility] [place] [facility] [address] [id number] [place] [address] Jul, [facility] [place] [facility] [address] [id number] [place] [address] Jul, [facility] [place] [facility] [address] [id number] [place] [address] Jul, [facility] [place] [facility] [address] [id number] [place] [address] Jul, [facility] [place] [facility] [address] [id number] [place] [address] Jul, [facility] [place] [facility] [address] [id number], [place] [address] Jul, [facility] [place] [facility] [address] [id number] [place] [address] Jul, [facility] [place] [facility] [address] [id number] [place] [address] Jun, [facility] [place] [facility] [address] [id number] [place] [address] Jun, [facility] [place] [facility] [address] [id number] [place] [address] 17 Jun, 2013 [facility] [address] [id number] [place] [address] Jun, [facility] [address] [id number] [place] [address] 18 May, 2013 [facility] [address] [id number] [place] [address] 18 May, 2013 [facility] [address] [id number] [place] [address] Apr, [facility] [address] [id number] [place] [address] Apr, [facility] [address] [id number] [place] [address] Mar, [facility] [address] [id number] [place] [address] Mar, [facility] [address] [id number] [place] [address] Mar, [facility] [address] [id number] [place] [address] Mar, [facility] [address] [id number] [place] [address] Mar, [facility] [place] [facility] [address] [id number] [place] [address] Mar, [facility] [address] [id number] [place] [address] Feb, [facility] [place] [facility] [address] [id number] [place] [address] Feb, [facility] [place] [facility] [address] [id number] [place] [address] Feb, [facility] [place] [facility] [address] [id number] [place] [address] Feb, [facility] [place] [facility] [address] [id number] [place] [address]41 18 Feb, 2013 [facility] [place] [facility] [address] [id number] [place] [address] 18 Feb, 2013 [facility] [place] [facility] [address] [id number] [place] [address] Feb, [facility] [place] [facility] [address] [id number] [place] [address] Feb, [facility] [place] [facility] [address] [id number] [place] [address] 15 Jan, 2013 [facility] [place] [facility] [address] [id number] [place] [address]26 15 Jan, 2013 [facility] [place] [facility] [address] [id number] [place] [address]76 14 Jan, 2013 [facility] [place] [facility] [address] [id number] [place] [address]44 14 Jan, 2013 [facility] [place] [facility] [address] [id number] [place] [address] 9315 18 Dec, 2012 [facility] [place] [facility] [address] [id number], [place] [address] Dec, [facility] [place] [facility] [address] [id number], [place] [address] 2012 [facility] [place] [facility] [address] [id number], [place] [address] Nov, [facility] [place] [facility] [address] [id number] [place] [address] 6612 Nov, [facility] [place] [facility] [address] [id number], [place] [address] 16 Oct, 2012 [facility] [place] [facility] [address] [id number], [place] [address] Oct, [facility] [place] [facility] [address] [id number], [place] [address] Oct, [facility] [address] [id number] [place] [address] 12[address] Sep, [facility] [place] [facility] [address] [id number] [place] [address] Sep, [facility] [address] [id number] [place] [address] 0969 Sep, [facility] [address] [id number] [place] [address] 24[address] Sep, [facility] [address] [id number] [place] [address] 1248 Sep, [facility] [address] [id number] [place] [address] 3913 Sep, [facility] [address] [id number] [place] [address] August, [facility] [address] [id number] [place] [address] 7616 August, [facility] [address] [id number] [place] [address] 8205 August, [facility] [address] [id number] [place] [address] 1629 August, [facility] [address] [id number] [place] [address] 5965 August, [facility] [place] [facility] [address] [id number] [place] [address] 2508 August, [facility] [place] [facility] [address] [id number] [place] [address] 6991 August, [facility] [place] [facility] [address] [id number] [place] [address] 7643 Jul, [facility] [place] [facility] [address] [id number] [place] [address] 2477 Jul, [facility] [place] [facility] [address] [id number] [place] [address] 9[address] Jun, [facility] [place] [facility] [address] [id number] [place] [address] 9756 Jun, [facility] [place] [facility] [address] [id number] [place] [address] 1856 May, [facility] [place] [facility] [address] [id number] [place] [address] 4[address] May, [facility] [place] [facility] [address] [id number] [place] [address] 4924 Apr, [facility] [place] [facility] [address] [id number] [place] [address] 6179 Mar, [facility] [place] [facility] [address] [id number] [place] [address] 9998 Mar, [facility] [place] [facility] [address] [id number] [place] [address] 2896 Mar, [facility] [place] [facility] [address] [id number] [place] [address] 5996 Mar, [facility] [place] [facility] [address] [id number] [place] [address] 5570 Mar, [facility] [place] [facility] [address] [id number] [place] [address] 9845 Mar, [facility] [place] [facility] [address] [id number] [place] [address] 2548 Feb, [facility] [place] [facility] [address] [id number] [place] [address] 2544 Feb, [facility] [place] [facility] [address] [id number] [place] [address] 2546 Feb, [facility] [place] [facility] [address] [id number] [place] [address] 2546 Feb, [facility] [place] [facility] [address] [id number] [place] [address] 4207 Feb, [facility] [place] [facility] [address] [id number] [place] [address] 9511 Feb, [facility] [place] [facility] [address] [id number] [place] [address] 0276 Feb, [facility] [place] [facility] [address] [facility] [id number] [place] [address] 0616 Feb, [facility] [place] [facility] [address] [id number] [place] [address] 5518 Jan, [facility] [place] [facility] [address] [id number] [place] [address] 2106 Jan, [facility] [place] [facility] [address] [id number] [place] [address] 7104 28 Dec, 2011 [facility] [place] [facility] [address] [id number] [place] [address] 3250 Dec, [facility] [place] [facility] [address] [id number], [place] [address] 9131 Dec, [facility] [place] [facility] [address] [id number] [place] [address] 9667 Dec, [facility] [place] [facility] [address] [facility] [id number] [place] [address] 9581 Dec, [facility] [place] [facility] [address] [facility] [id number], [place] [address] 3131 Nov, [facility] [place] [facility] [address] [id number], [place] [address] 0691 Oct, [facility] [place] [facility] [address] [id number] [place] [address] 3892 Oct, [facility] [place] [facility] [address] [facility] [id number], [place] [address]- 3335 Sep, [facility] [place] [facility] [address] [facility] [id number] [place] [address]- 1128 Sep, [facility] [place] [facility] [address] [id number] [place] [address]- 7345 Sep, [facility] [place] [facility] [address] [id number] [place] [address]- 8437 Sep, [facility] [place] [facility] [address] [id number] [place] [address]- 1525 Sep, [facility] [place] [facility] [address] [id number] [place] [address]- 4273 Sep, [facility] [place] [facility] [address] [id number] [place] [address]- 4087 Sep, [facility] [place] [facility] [address] [id number] [place] [address]- 1233 Sep, [facility] [place] [facility] [address] [id number] [place] [address]- 2843 August, [facility] [place] [facility] [address] [id number] [place] [address]- 2710 August, [facility] [place] [facility] [address] [id number] [place] [address]- 6225 August, [facility] [place] [facility] [address] [id number] [place] [address]- 4055 Jul, [facility] [place] [facility] [address] [id number] [place] [address]- 9346 Jul, [facility] [place] [facility] [address] [id number] [place] [address]- 7385 Jun, [facility] [place] [facility] [address] [id number] [place] [address]- 2015 Jun, [facility] [place] [facility] [address] [id number] [place] [address]- 1994 Jun, [facility] [place] [facility] [address] [id number] [place] [address]- 9349 Jun, [facility] [place] [facility] [address] [id number] [place] [address]- 7145 May, [facility] [place] [facility] [address] [id number] [place] [address]- 0748 May, [facility] [place] [facility] [address] [id number] [place] [address]- 1799 Apr, [facility] [place] [facility] [address] [id number] [place] [address]- 7607 Apr, [facility] [place] [facility] [address] [id number] [place] [address]- 5844 Apr, [facility] [place] [facility] [address] [id number] [place] [address]- 5032 Mar, [facility] [place] [facility] [address] [id number] [place] [address]- 7618 Mar, [facility] [place] [facility] [address] [id number] [place] [address]- 4502 Mar, [facility] [place] [facility] [address] [id number], [place] [address]- 4552 Feb, [facility] [place] [facility] [address] [id number] [place] [address]- 9359 Feb, [facility] [place] [facility] [address] [id number], [place] [address]- 4708 Feb, [facility] [place] [facility] [address] [id number], [place] [address]- 0640 Feb, [facility] [place] [facility] [address] [id number], [place] [address]- 3121 Jan, [facility] [place] [facility] [address] [id number], [place] [address]- 4703 Jan, [facility] [place] [facility] [address] [id number], [place] [address]- 3703 Jan, [facility] [place] [facility] [address] [id number], [place] [address]- 3773 16 Dec, 2010 [facility] [place] [facility] [address] [id number], [place] [address]- 6793 Oct, [facility] [place] [address], [place] [address]- 1646 Mar, [facility] [place] [id number], [place] [address]- 3909 Feb, [facility] [place] [address], [place] [address]- 1076 Feb, [facility] [place] [id number] [place] [address]- 0507 May, [facility] [place] [id number] [place] [address]- 4751 Apr, [facility] [place] [id number] [place] [address]- 3958 Mar, [facility] [place] [id number] [place] [address]- 1536 Jan, [facility] [place] [address]65[address], [place] [address]- 8152 Oct, [facility] [place] [id number] [place] [address]- 0027 Jul, [facility] [place] [address], [place] [address]- 5866 Mar, [facility] [place] [address], [place] [address]- 6685 Feb, [facility] [place] [address], [place] [address]- 4793 Jan, IMMUNIZATIONS No Known Immunizations SOCIAL HISTORY Never Assessed REASON FOR VISIT Controlled Refill Request PLAN OF CARE VITAL SIGNS [...]
--- OUTSIDE RECORDS SUMMARY | 2018-07-05 12:51 | XMS REPORT ---
Author Author KATHYA FISCHER Organization [facility] Address [address] [place] [address] Care Team Providers Care Veterinary Virologist Name Role Phone KATHYA FISCHER Unavailable PROBLEMS Type Condition ICD9-CM Code NUQ40-PU Code Onset Dates Condition Status SNOMED Code Problem Hypertension, benign I10 Active 61445685 Problem Obstructive sleep apnea G47.33 Active 45586436 Problem Controlled type 2 diabetes mellitus without complication, without long -term current use of insulin E11.9 Active 669486717 Problem 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 Active 28004877 Problem Arthritis M19.90 Active 5678435 Problem Uncontrolled type 2 diabetes mellitus without complication, without long-term current use of insulin E11.65 Active 881232664 Problem Polyneuropathy G62.9 Active 68179555 Problem Fibromyalgia M79.7 Active [id number] ALLERGIES No Information ENCOUNTERS Encounter Location Date Diagnosis [place] [id number] [place] [address] 29741- 5785 Sep, [place] [id number] [place] [address] 29626- 3599 Sep, Uncontrolled type 2 diabetes mellitus without complication, without long-term current use of insulin E11.65 [facility] [id number] [place] [address] 19787- 9478 Sep, [facility] [id number] [place] [address] 44956- 2884 Sep, [facility] [address] 00135- 0218 Sep, Uncontrolled type 2 diabetes mellitus without complication, without long-term current use of insulin E11.65 and Fibromyalgia M79.7 [facility] [address] 49228- 2654 August, [facility] [id number] [place] [address] 89667- 3562 August, [facility] [address] 96079- 4335 August, [facility] [address] 90099- 3553 August, Fibromyalgia M79.7 [facility] [address] 20618- 3914 Jul, Hypertension, benign I10 [facility] [address] 10692- 8048 Jul, Fibromyalgia M79.7 [facility] [address] 37915- 9563 Jul, [place] [address] 09367- 4895 Jun, [facility] [id number] [place] [address] 40130- 9187 Jun, Hypertension, benign I10 ; Arthritis M19.90 ; 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 use 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 Z79.891 and Uncontrolled type 2 diabetes mellitus without complication, without long-term current use of insulin E11.65 [facility] [id number] [place] [address] 53218 -2060 Jun, Acute nasopharyngitis J00 and BMI 50.0-59.9, adult Z68.43 [facility] [id number] [place] [address] 25916- 0365 Jun, Fibromyalgia M79.7 [facility] [address] 81496- 3634 May, [facility] [address] 25719- 3245 May, Fibromyalgia M79.7 [facility] [address] 65122- 8426 Apr, Fibromyalgia M79.7 [facility] [id number] [place] [address] 36111 2546 Apr, [facility] [id number] [place] [address] 14438 2546 Apr, [facility] [id number] [place] [address] 57149 2546 Apr, Arthritis M19.90 [facility] [id number] [place] [address] 65764 2546 Apr, Arthritis M19.90 [facility] [id number] [place] [address] 04794 2546 Apr, Arthritis M19.90 and Controlled type 2 diabetes mellitus without complication, without long-term current use of insulin E11.9 [facility] [id number] [place] [address] 21221 2546 Apr, [facility] [id number] [place] [address] 20666 2546 Apr, Fibromyalgia M79.7 [facility] [id number] [place] [address] 26714 2546 Mar, [facility] [id number] [place] [address] 73138 2546 Mar, [facility] [id number] [place] [address] 80585 2546 Mar, Fibromyalgia M79.7 [facility] [address] [address] 2546 Feb, [facility] [id number] [place] [address] 69819 2546 Feb, [facility] [address] [address] 2546 Feb, [facility] [id number] [place] [address] 17090- 0586 Feb, Fibromyalgia M79.7 [facility] [id number] [place] [address] 40576- 1304 Feb, Diabetes type 2, uncontrolled E11.65 and Encounter for immunization Z23 [facility] [id number] [place] [address] 75224- 1018 Jan, [facility] [id number] [place] [address] 26501- 8957 Jan, Fibromyalgia M79.7 [facility] [id number] [place] [address] 96822- 4785 Dec, [facility] [address] 06333- 0775 Dec, Fibromyalgia M79.7 [facility] [id number] [place] [address] 06481- 9608 Nov, [facility] [id number] [place] [address] 92315- 1670 Nov, [facility] [id number] [place] [address] 86978- 9533 Nov, 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 and Polyneuropathy G62.9 [facility] [id number] [place] [address] 88377- 2088 Nov, [facility] [id number] [place] [address] 64931- 6563 Nov, [facility] [id number] [place] [address] 58037- 2852 Oct, Diabetes type 2, uncontrolled E11.65 [facility] [id number] [place] [address] 34159- 9412 Oct, Diabetes type 2, uncontrolled E11.65 ; Polyneuropathy G62.9 and Pain in right wrist M25.531 [facility] [id number] [place] [address] 97003- 9853 Oct, [facility] [address] [address]- 9813 Oct, Pain in left shoulder M25.512 [facility] [id number] [place] [address] 82257- 5186 Sep, [facility] [id number] [place] [address] 00328- 4296 Sep, Pain in left shoulder M25.512 [facility] [id number] [place] [address] 68839- 1607 Sep, [facility] [id number] [place] [address] 34844- 7512 August, Pain in left shoulder M25.512 [facility] [id number] [place] [address] 05512- 6886 Jul, [facility] [id number] [place] [address] 74969- 8414 Jul, [facility] [id number] [place] [address] 66613- 0517 Jul, Pain in left shoulder M25.512 [facility] [id number] [place] [address] 92073- 1839 Jun, [facility] [id number] [address]- 4036 Jun, [facility] [id number] [place] [address] 30156 2546 Jun, Diabetes type 2, uncontrolled E11.65 ; Fibromyalgia M79.7 and Arthritis M19.90 [facility] [id number] [place] [address] 85692- 9666 Jun, Pain in left shoulder M25.512 [facility] [address] [address]- 1166 May, [facility] [id number] [place] [address] 58412- 1871 May, Diabetes type 2, controlled E11.9 [facility] [address] [place] [address] 47187- 8344 17 May, 2016 [facility] [id number] [place] [address] 680302- 6496 May, Uncontrolled type 2 diabetes mellitus without complication, without long-term current use of insulin E11.65 [facility] [id number] [place] [address] 65519- 8693 May, Pain in left shoulder M25.512 [facility] [id number] [place] [address] 41535- 7235 03 May, 2016 Diabetes type 2, controlled E11.9 and Uncontrolled type 2 diabetes mellitus without complication, without long-term current use of insulin E11.65 [facility] [id number] [place] [address] 66728- 2362 Apr, [facility] [id number] [place] [address] 24723- 4002 Apr, [facility] [id number] [place] [address] 51063- 3759 Mar, [facility] [id number] [place] [address] 99764- 7616 Mar, [facility] [id number] [place] [address] 21529- 4714 Mar, [facility] [id number] [place] [address] 71467- 2757 Feb, [facility] [address] [place] [address] [id number] Feb, Dental examination Z01.20 [facility] [id number] [place] [address] 726478- 3216 17 Jan, 2016 [facility] [id number] [place] [address] 97499- 7976 14 Dec, 2015 [place] [address] [id number] [place] [address]- 3847 Dec, [facility] [address] [id number] [place] [address]- 7533 Dec, [facility] [address] [id number] [place] [address]- 4693 Dec, Diabetes type 2, controlled E11.9 [facility] [address] [id number] [place] [address]- 5105 Nov, [facility] [address] [id number] [place] [address]- 3515 Nov, [facility] [address] [id number] [place] [address]- 8809 Nov, [facility] [address] [facility] [id number] [place] [address]- 4241 Nov, [facility] [address] [facility] [id number] [place] [address]- 6424 Oct, [facility] [address] [id number] [place] [address]- 4798 Oct, [facility] [address] [facility] [id number] [place] [address]- 3539 Oct, [facility] [address] [facility] [id number] [place] [address]- 1566 Sep, [facility] [address] [facility] [id number] [place] [address]- 6785 Sep, Diabetes type 2, controlled E11.9 [facility] [address] [id number] [place] [address]- 2398 Sep, Diabetes type 2, controlled E11.9 [facility] [address] [id number] [place] [address]- 8351 August, [facility] [address] [facility] [id number] [place] [address]- 9947 August, [facility] [id number] [place] [address] 29460- 5501 August, Type 2 diabetes mellitus without complication E11.9 and Pain in left shoulder M25.512 [facility] [id number] [place] [address] 68394- 0814 Jul, [facility] [id number] [place] [address] 46203- 0052 Jul, Diabetes type 2, controlled E11.9 and Hypertension, benign I10 [facility] [id number] [place] [address] 46568- 6850 Jun, [facility] [id number] [place] [address] 84165- 3217 Jun, [facility] [id number] [place] [address] 37047- 2023 Jun, Diabetes 250.00 [facility] [id number] [place] [address] 90795- 8473 Jun, [facility] [id number] [place] [address] 97542- 9472 May, Diabetes type 2, uncontrolled E11.65 [facility] [id number] [place] [address] 44305- 3185 May, [facility] [id number] [place] [address] 45139- 2372 Apr, Type 2 diabetes mellitus without complication E11.9 [facility] [address] [place] [address] 80199- 0496 Apr, Encounter for immunization Z23 [facility] [id number] [place] [address] 04275- 2298 Apr, [facility] [id number] [place] [address] 58148- 8608 Mar, [facility] [id number] [place] [address] 23525- 1429 Mar, [facility] [address] 5220 Mar, [facility] [address] [address]- 0694 Feb, [facility] [address] [address]- 7654 Jan, [facility] [id number] [place] [address] 285569- 1483 Jan, [facility] [address] [address]- 9704 Jan, [facility] [id number] [place] [address] 68576- 5823 Dec, Diabetes 250.00 and COPD (chronic obstructive pulmonary disease) 496 [facility] [id number] [place] [address] 26187- 3491 Dec, [facility] [address] [address]- 6714 Dec, [facility] [id number] [place] [address] 52739- 1483 Nov, [facility] [address] [address]- 3561 Oct, Diabetes 250.00 [facility] [address], [place] [address]- 6466 Sep, [facility] [address], [place] [address]- 5092 Sep, [facility] [address], [place] [address]- 0498 Sep, [facility] [address] [address]- 9387 Sep, Diabetes 250.00 [facility] [address] [address]- 2546 Sep, [facility] [address] [facility] [id number] 4814 Sep, [facility] [address], [place] [address]- 9826 August, Hypertension, essential, benign 401.1 ; Coronary atherosclerosis of [place] coronary artery 414.01 and Diabetic neuropathy associated with type 2 diabetes mellitus 250.60 [facility] [address] [facility] [id number], [place] [address]- 4115 Jul, [facility] [address] [facility] [id number], [place] [address]- 4898 Jul, [facility] [address], [place] [address]- 8081 Jul, [facility] [address], [place] [address]- 1479 Jun, [facility] [id number] [address]- 0730 Jun, [facility] [id number] [address]- 5148 Jun, [facility] [address], [place] [address]- 2462 Jun, [facility] [address], [place] [address]- 0931 Jun, [facility] [place] [facility] [id number] [address]- 4374 May, [facility] [id number] [address]- 3106 May, [facility] [place] [facility] [id number] [address]- 3486 May, [facility] [id number], [place] [address]- 2546 May, [facility] [place] [facility] [address] [facility] [id number] [place] [address]- 4891 May, 2014 [facility] [place] [facility] [address] [id number] [place] [address]- 8918 May, [facility] [place] [facility] [address] [id number] [place] [address]- 9996 May, [facility] [place] [facility] [address] [id number] [place] [address]- 3299 Apr, [facility] [place] [facility] [address] [id number] [place] [address]- 4695 Apr, [facility] [place] [facility] [address] [id number] [place] [address]- 8714 Apr, [facility] [place] [facility] [address] [id number] [place] [address]- 0513 Apr, [facility] [place] [facility] [address] [id number] [place] [address]- 9300 Mar, [facility] [place] [facility] [address] [id number] [place] [address]- 3547 Mar, [facility] [place] [facility] [address] [id number] [place] 5445 Mar, [facility] [place] [facility] [address] [id number] [place] [address]- 2738 Mar, [facility] [place] [facility] [address] [id number] [place] [address]- 2987 Feb, [facility] [place] [facility] [address] [id number] [place] [address]- 0474 Feb, [facility] [place] [facility] [address] [id number] [place] [address]- 3929 Feb, [facility] [place] [facility] [address] [id number] [place] [address]- 2306 Feb, [facility] [place] [facility] [address] [id number] [place] [address]- 8131 Feb, [facility] [place] [facility] [address] [id number] [place] [address]- 7257 Feb, [facility] [place] [facility] [address] [id number] [place] [address]- 4306 Feb, [facility] [place] [facility] [address] [id number] [place] 9568 Jan, [facility] [place] [facility] [address] [id number] [place] [address]- 4611 Jan, [facility] [place] [facility] [address] [id number] [place] [address]- 0818 Dec, [facility] [place] [facility] [address] [id number] [place] [address]- 0727 Dec, [facility] [place] [facility] [address] [id number] [place] [address]- 9778 Dec, [facility] [place] [facility] [address] [id number] [place] [address]- 4785 Dec, [facility] [place] [facility] [address] [id number] [place] [address]- 1188 04 Dec, 2013 [facility] [place] [facility] [address] [id number] [place] [address]- 0140 Dec, [facility] [place] [facility] [address] [id number], [place] [address]- 9393 Dec, [facility] [place] [facility] [address] [id number], [place] [address]- 9203 Dec, [facility] [place] [facility] [address] [id number] [place] [address]- 2700 Nov, [facility] [place] [facility] [address] [id number] [place] [address]- 3052 Nov, [facility] [place] [facility] [address] [id number] [place] [address]- 5705 Nov, [facility] [place] [facility] [address] [id number] [place] [address]- 3820 Nov, [facility] [place] [facility] [address] [id number] [place] [address]- 9910 Oct, [facility] [place] [facility] [address] [id number] [place] [address]- 5047 Oct, [facility] [place] [facility] [address] [id number] [place] 8700 Oct, [facility] [place] [facility] [address] [id number] [place] [address]- 7430 Oct, [facility] [place] [facility] [address] [id number] [place] [address]- 2316 Oct, [facility] [place] [facility] [address] [id number] [place] [address]- 6681 Oct, [facility] [place] [facility] [address] [id number] [place] [address]- 8740 Oct, [facility] [place] [facility] [address] [id number] [place] [address]- 0426 Oct, [facility] [place] [facility] [address] [id number] [place] [address]- 6029 Sep, [facility] [place] [facility] [address] [id number] [place] [address]- 6803 Sep, [facility] [place] [facility] [address] [id number] [place] [address]- 8637 August, [facility] [place] [facility] [address] [id number] [place] [address]- 3106 August, [facility] [place] [facility] [address] [id number] [place] [address]- 9384 Jul, [facility] [place] [facility] [address] [id number] [place] [address]- 6228 Jul, [facility] [place] [facility] [address] [id number] [place] [address]- 1107 Jul, [facility] [place] [facility] [address] [id number] [place] [address]- 6767 Jul, [facility] [place] [facility] [address] [id number] [place] [address]- 2559 Jul, [facility] [place] [facility] [address] [id number] [place] [address] Jul, [facility] [place] [facility] [address] [id number] [place] [address] Jul, [facility] [address] [id number] [place] [address] Jul, [facility] [place] [facility] [address] [id number] [place] [address] Jun, [facility] [place] [facility] [address] [id number] [place] [address] Jun, [facility] [place] [facility] [address] [id number] [place] [address] Jun, [facility] [place] [facility] [address] [id number] [place] [address] Jun, [facility] [place] [facility] [address] [id number] [place] [address] May, [facility] [place] [facility] [address] [id number] [place] [address] May, [facility] [place] [facility] [address] [id number] [place] [address] Apr, [facility] [place] [facility] [address] [id number] [place] [address] Apr, [facility] [place] [facility] [address] [id number] [place] [address] Mar, [facility] [place] [facility] [address] [id number] [place] [address] Mar, [facility] [place] [facility] [address] [id number], [place] [address] 18 Mar, 2013 [facility] [place] [facility] [address] [id number] [place] [address] 18 Mar, 2013 [facility] [place] [facility] [address] [id number] [place] [address] 18 Mar, 2013 [facility] [place] [facility] [address] [id number] [place] [address] 18 Mar, 2013 [facility] [place] [facility] [address] [id number] [place] [address] Feb, [facility] [place] [facility] [address] [id number] [place] [address] Feb, [facility] [place] [facility] [address] [id number] [place] [address] Feb, [facility] [place] [facility] [address] [facility] [id number] [place] [address] Feb, [facility] [place] [facility] [address] [id number] [place] [address] 18 Feb, 2013 [facility] [place] [facility] [address] [id number] [place] [address] 18 Feb, 2013 [facility] [place] [facility] [address] [facility] [id number], [place] [address] Feb, [facility] [place] [facility] [address] [id number], [place] [address] 12 Feb, 2013 [facility] [place] [facility] [address] [id number], [place] [address] 15 Jan, 2013 [facility] [place] [facility] [address] [id number], [place] [address] 15 Jan, 2013 [facility] [place] [facility] [address] [facility] [id number], [place] [address] 14 Jan, 2013 [facility] [place] [facility] [address] [facility] [id number], [place] [address] 14 Jan, 2013 [facility] [place] [facility] [address] [id number] [place] [address] 18 Dec, 2012 [facility] [place] [facility] [address] [id number] [place] [address] Dec, [facility] [place] [facility] [address] [id number] [place] [address] Dec, [facility] [place] [facility] [address] [id number] [place] [address] Nov, [facility] [place] [facility] [address] [id number] [place] [address] Nov, [facility] [place] [facility] [address] [id number] [place] [address] Oct, [facility] [place] [facility] [address] [id number] [place] [address] Oct, [facility] [place] [facility] [address] [id number] [place] [address] Oct, [facility] [place] [facility] [address] [id number] [place] [address] Sep, [facility] [place] [facility] [address] [id number] [place] [address] Sep, [facility] [place] [facility] [address] [id number] [place] [address] Sep, [facility] [place] [facility] [address] [id number] [place] [address] Sep, [facility] [place] [facility] [address] [id number] [place] [address] Sep, [facility] [place] [facility] [address] [id number] [place] [address] Sep, [facility] [place] [facility] [address] [id number] [place] [address] August, [facility] [place] [facility] [address] [id number] [place] [address] August, [facility] [address] [id number] [place] [address] August, [facility] [address] [id number] [place] [address] August, [facility] [address] [id number] [place] [address] August, [facility] [address] [id number] [place] [address] August, [facility] [address] [id number] [place] [address] August, [facility] [address] [id number] [place] [address] Jul, [facility] [address] [id number] [place] [address] Jul, [facility] [address] [id number] [place] [address]- [address] Jun, [facility] [address] [id number] [place] [address] Jun, [facility] [address] [id number] [place] [address] May, [facility] [address] [id number] [place] [address] May, [facility] [place] [facility] [address] [id number] [place] [address] Apr, [facility] [place] [facility] [address] [id number] [place] [address] Mar, [facility] [place] [facility] [address] [id number] [place] [address] Mar, [facility] [place] [facility] [address] [id number] [place] [address] Mar, [facility] [address] [id number] [place] [address] Mar, [facility] [place] [facility] [address] [id number] [place] [address] Mar, [facility] [place] [facility] [address] [id number] [place] [address] Mar, [facility] [place] [facility] [address] [id number] [place] [address] Feb, [facility] [place] [facility] [address] [id number] [place] [address] Feb, [facility] [place] [facility] [address] [id number] [place] [address] Feb, [facility] [place] [facility] [address] [id number] [place] [address] Feb, [facility] [place] [facility] [address] [facility] [id number] [place] [address] Feb, [facility] [place] [facility] [address] [id number] [place] [address] Feb, [facility] [place] [facility] [address] [id number] [place] [address] Feb, [facility] [place] [facility] [address] [facility] [id number] [place] [address] Feb, [facility] [place] [facility] [address] [id number] [place] [address] Jan, [facility] [place] [facility] [address] [id number] [address] Jan, [facility] [place] [facility] [address] [id number] [place] [address] 28 Dec, 2011 [facility] [place] [facility] [address] [id number] [place] [address] 19 Dec, 2011 [facility] [place] [facility] [address] [id number] [place] [address] Dec, [facility] [place] [facility] [address] [id number] [place] [address]185 Dec, [facility] [place] [facility] [address] [id number] [place] [address] Dec, [facility] [place] [facility] [address] [id number] [place] [address] Nov, [facility] [place] [facility] [address] [id number] [place] [address] Oct, [facility] [place] [facility] [address] [id number] [place] [address] Oct, [facility] [place] [facility] [address] [id number] [place] [address] Sep, [facility] [place] [facility] [address] [id number] [place] [address] Sep, [facility] [place] [facility] [address] [id number] [place] [address] 9414 Sep, [facility] [place] [facility] [address] [id number] [place] [address]- 9468 Sep, [facility] [place] [facility] [address] [id number] [place] [address] Sep, [facility] [place] [facility] [address] [id number] [place] [address] Sep, [facility] [place] [facility] [address] [id number] [place] [address] Sep, [facility] [place] [facility] [address] [id number] [place] [address] Sep, [facility] [place] [facility] [address] [id number] [place] [address] August, [facility] [place] [facility] [address] [id number] [place] [address] August, [facility] [place] [facility] [address] [id number] [place] [address]- [address] August, [facility] [address] [id number] [place] [address] 37[address] Jul, [facility] [place] [facility] [address] [id number] [place] [address] 7936 Jul, [facility] [place] [facility] [address] [id number] [place] [address]- 8614 Jun, [facility] [place] [facility] [address] [id number] [place] [address]- [address] Jun, [facility] [place] [facility] [address] [id number] [place] [address] Jun, [facility] [place] [facility] [address] [id number] [place] [address]- [address]47 Jun, [facility] [address] [facility] [id number] [place] [address]- 24[address] May, [facility] [place] [facility] [address] [id number] [place] [address] May, [facility] [place] [facility] [address] [facility] [id number] [place] [address]- 9514 Apr, [facility] [place] [facility] [address] [facility] [id number] [place] [address] 1879 Apr, [facility] [place] [facility] [address] [id number] [place] [address]- [address] Apr, [facility] [place] [facility] [address] [id number] [place] [address]- [address]959 Mar, [facility] [place] [facility] [address] [id number] [place] [address]- 6345 Mar, [facility] [place] [facility] [address] [id number] [place] [address]- [address] Mar, [facility] [place] [facility] [address] [facility] [id number] [place] [address]- 2609 Feb, [facility] [place] [facility] [address] [id number] [place] [address]- [address] 09 Feb, 2011 [facility] [place] [facility] [address] [id number] [place] [address] 1988 Feb, [facility] [place] [facility] [address] [id number] [place] [address]- 8917 Feb, [facility] [place] [facility] [address] [id number] [place] [address]- [address] Jan, [facility] [place] [facility] [address] [id number] [place] [address]- [address] 14 Jan, 2011 [facility] [place] [facility] [address] [id number] [place] [address]- 4261 Jan, [facility] [place] [facility] [address] [id number] [place] [address]- 8620 16 Dec, 2010 [facility] [place] [facility] [address] [id number] [place] [address]- [address]12 Oct, [facility] [place] [facility] [address] [id number] [place] [address]- 00[address] Mar, [facility] [place] [facility] [address] [id number] [place] [address]- 8331 Feb, [facility] [place] [facility] [address] [facility] [id number] [place] [address] Feb, [facility] [place] [facility] [address] [id number] [place] [address]- 1518 16 May, 2009 [facility] [place] [facility] [address] [id number] [place] [address]- 2692 Apr, [facility] [place] [facility] [address] [id number] [place] [address]- 8[address] Mar, [facility] [place] [facility] [address] [id number] [place] [address]- [address] 30 Jan, 2009 [facility] [place] [facility] [address] [id number] [place] [address]- [address] Oct, [facility] [address] [facility] [id number], [place] [address] Jul, [facility] [address] [id number] [address] Mar, [facility] [address] [id number], [place] [address] Feb, [facility] [address] [id number] [address] Jan, IMMUNIZATIONS No Known Immunizations SOCIAL HISTORY Never Assessed REASON FOR VISIT PA for Lidocaine Patch PLAN OF CARE VITAL SIGNS MEDICATIONS Unknown [...]
--- OUTSIDE RECORDS SUMMARY | 2018-07-05 12:52 | XMS REPORT ---
Author Author KATHYA FISCHER Organization [facility] Address [address] [place] [address] Care Team Providers Care Spin Instructor Name Role Phone KATHYA FISCHER Unavailable PROBLEMS Type Condition ICD9-CM Code WPN50-US Code Onset Dates Condition Status SNOMED Code Problem Hypertension, benign I10 Active 81386010 Problem Obstructive sleep apnea G47.33 Active 58655769 Problem Controlled type 2 diabetes mellitus without complication, without long -term current use of insulin E11.9 Active 950620180 Problem 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 Active 77161224 Problem Arthritis M19.90 Active 4257347 Problem Uncontrolled type 2 diabetes mellitus without complication, without long-term current use of insulin E11.65 Active 696949732 Problem Polyneuropathy G62.9 Active 21049647 Problem Fibromyalgia M79.7 Active [id number] ALLERGIES No Information ENCOUNTERS Encounter Location Date Diagnosis [place] [id number] [place] [address] 46813- 2515 Sep, [place] [id number] [place] [address] 68978- 8253 Sep, Uncontrolled type 2 diabetes mellitus without complication, without long-term current use of insulin E11.65 [facility] [id number] [place] [address] 35133- 2623 Sep, [facility] [id number] [place] [address] 40083- 1228 Sep, [facility] [address] 22545- 1637 Sep, Uncontrolled type 2 diabetes mellitus without complication, without long-term current use of insulin E11.65 and Fibromyalgia M79.7 [facility] [address] 11169- 7214 August, [facility] [id number] [place] [address] 60444- 2484 August, [facility] [address] 14992- 3712 August, [facility] [address] 02777- 6120 August, Fibromyalgia M79.7 [facility] [address] 92366- 5985 Jul, Hypertension, benign I10 [facility] [address] 23010- 7826 Jul, Fibromyalgia M79.7 [facility] [address] 43282- 6464 Jul, [place] [address] 70872- 0893 Jun, [facility] [id number] [place] [address] 75360- 3048 Jun, Hypertension, benign I10 ; Arthritis M19.90 ; 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 [id number] [place] [address] 60966 -2301 Jun, Acute nasopharyngitis J00 and BMI 50.0-59.9, adult Z68.43 [facility] [id number] [place] [address] 55881- 8241 Jun, Fibromyalgia M79.7 [facility] [address] 67007- 4761 May, [facility] [address] 58853- 9224 May, Fibromyalgia M79.7 [facility] [address] 05123- 9753 Apr, Fibromyalgia M79.7 [facility] [id number] [place] [address] 26759 2546 Apr, [facility] [id number] [place] [address] 58059 2546 Apr, [facility] [id number] [place] [address] 94529 2546 Apr, Arthritis M19.90 [facility] [id number] [place] [address] 04247 2546 Apr, Arthritis M19.90 [facility] [id number] [place] [address] 72857 2546 Apr, Arthritis M19.90 and Controlled type 2 diabetes mellitus without complication, without long-term current use of insulin E11.9 [facility] [id number] [place] [address] 63079 2546 Apr, [facility] [id number] [place] [address] 50463 2546 Apr, Fibromyalgia M79.7 [facility] [id number] [place] [address] 76476 2546 Mar, [facility] [id number] [place] [address] 58000 2546 Mar, [facility] [id number] [place] [address] 62787 2546 Mar, Fibromyalgia M79.7 [facility] [address] [address] 2546 Feb, [facility] [id number] [place] [address] 37364 2546 Feb, [facility] [address] [address] 2546 Feb, [facility] [id number] [place] [address] 40517- 0558 Feb, Fibromyalgia M79.7 [facility] [id number] [place] [address] 30727- 5540 Feb, Diabetes type 2, uncontrolled E11.65 and Encounter for immunization Z23 [facility] [id number] [place] [address] 53533- 6159 Jan, [facility] [id number] [place] [address] 71006- 3276 Jan, Fibromyalgia M79.7 [facility] [id number] [place] [address] 28847- 0754 Dec, [facility] [address] 75104- 6693 Dec, Fibromyalgia M79.7 [facility] [id number] [place] [address] 81146- 6643 Nov, [facility] [id number] [place] [address] 77154- 2468 Nov, [facility] [id number] [place] [address] 52650- 3260 Nov, 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 and Polyneuropathy G62.9 [facility] [id number] [place] [address] 12151- 5895 Nov, [facility] [id number] [place] [address] 30064- 3866 Nov, [facility] [id number] [place] [address] 42648- 6132 Oct, Diabetes type 2, uncontrolled E11.65 [facility] [id number] [place] [address] 64707- 8405 Oct, Diabetes type 2, uncontrolled E11.65 ; Polyneuropathy G62.9 and Pain in right wrist M25.531 [facility] [id number] [place] [address] 71129- 6782 Oct, [facility] [address] [address]- 7040 Oct, Pain in left shoulder M25.512 [facility] [id number] [place] [address] 96601- 3266 Sep, [facility] [id number] [place] [address] 42630- 1156 Sep, Pain in left shoulder M25.512 [facility] [id number] [place] [address] 85868- 9202 Sep, [facility] [id number] [place] [address] 92788- 9288 August, Pain in left shoulder M25.512 [facility] [id number] [place] [address] 99179- 3246 Jul, [facility] [id number] [place] [address] 79545- 8555 Jul, [facility] [id number] [place] [address] 45506- 7846 Jul, Pain in left shoulder M25.512 [facility] [id number] [place] [address] 86019- 1997 Jun, [facility] [id number] [address]- 1676 Jun, [facility] [id number] [place] [address] 64047 2546 Jun, Diabetes type 2, uncontrolled E11.65 ; Fibromyalgia M79.7 and Arthritis M19.90 [facility] [id number] [place] [address] 75337- 7706 Jun, Pain in left shoulder M25.512 [facility] [address] [address]- 2206 May, [facility] [id number] [place] [address] 02608- 5103 May, Diabetes type 2, controlled E11.9 [facility] [address] [place] [address] 75696- 1616 17 May, 2016 [facility] [id number] [place] [address] 792470- 9548 May, Uncontrolled type 2 diabetes mellitus without complication, without long-term current use of insulin E11.65 [facility] [id number] [place] [address] 77460- 7074 May, Pain in left shoulder M25.512 [facility] [id number] [place] [address] 68349- 3070 03 May, 2016 Diabetes type 2, controlled E11.9 and Uncontrolled type 2 diabetes mellitus without complication, without long-term current use of insulin E11.65 [facility] [id number] [place] [address] 72401- 4064 Apr, [facility] [id number] [place] [address] 28505- 8060 Apr, [facility] [id number] [place] [address] 64406- 3282 Mar, [facility] [id number] [place] [address] 52076- 2765 Mar, [facility] [id number] [place] [address] 88083- 7200 Mar, [facility] [id number] [place] [address] 60785- 0452 Feb, [facility] [address] [place] [address] [id number] Feb, Dental examination Z01.20 [facility] [address] [place] [address] 686539- 9356 17 Jan, 2016 [facility] [address] [place] [address] 14421- 2251 14 Dec, 2015 [place] [address] [id number] [place] [address]- 9338 Dec, [facility] [address] [id number] [place] [address]- 0104 Dec, [facility] [address] [id number] [place] [address]- 4258 Dec, Diabetes type 2, controlled E11.9 [facility] [address] [id number] [place] [address]- 4457 Nov, [facility] [address] [id number] [place] [address]- 5256 Nov, [facility] [address] [id number] [place] [address]- 3090 Nov, [facility] [address] [facility] [id number] [place] [address]- 7576 Nov, [facility] [address] [facility] [id number] [place] [address]- 9020 Oct, [facility] [address] [id number] [place] [address]- 7305 Oct, [facility] [address] [facility] [id number] [place] [address]- 9810 Oct, [facility] [address] [facility] [id number] [place] [address]- 3034 Sep, [facility] [address] [facility] [id number] [place] [address]- 3071 Sep, Diabetes type 2, controlled E11.9 [facility] [address] [id number] [place] [address]- 0366 Sep, Diabetes type 2, controlled E11.9 [facility] [address] [id number] [place] [address]- 5765 August, [facility] [address] [facility] [id number] [place] [address]- 2251 August, [facility] [id number] [place] [address] 69919- 9780 August, Type 2 diabetes mellitus without complication E11.9 and Pain in left shoulder M25.512 [facility] [id number] [place] [address] 36340- 5806 Jul, [facility] [id number] [place] [address] 12184- 9168 Jul, Diabetes type 2, controlled E11.9 and Hypertension, benign I10 [facility] [id number] [place] [address] 75262- 0768 Jun, [facility] [id number] [place] [address] 62958- 4953 Jun, [facility] [id number] [place] [address] 97334- 6303 Jun, Diabetes 250.00 [facility] [id number] [place] [address] 74902- 9727 Jun, [facility] [id number] [place] [address] 38714- 6714 May, Diabetes type 2, uncontrolled E11.65 [facility] [id number] [place] [address] 76493- 4407 May, [facility] [id number] [place] [address] 75096- 3129 Apr, Type 2 diabetes mellitus without complication E11.9 [facility] [address] [place] [address] 88843- 9568 Apr, Encounter for immunization Z23 [facility] [id number] [place] [address] 81118- 5556 Apr, [facility] [id number] [place] [address] 41907- 3895 Mar, [facility] [id number] [place] [address] 34689- 3204 Mar, [facility] [address] 8364 Mar, [facility] [address] [address]- 5568 Feb, [facility] [address] [address]- 6187 Jan, [facility] [address] [place] [address] 309445- 4191 Jan, [facility] [address] [address]- 1248 Jan, [facility] [address] [place] [address] 92656- 1370 Dec, Diabetes 250.00 and COPD (chronic obstructive pulmonary disease) 496 [facility] [id number] [place] [address] 07687- 7046 Dec, [facility] [address] [address]- 1369 Dec, [facility] [id number] [place] [address] 37588- 8634 Nov, [facility] [address] [address]- 0505 Oct, Diabetes 250.00 [facility] [address] [address]- 8835 Sep, [facility] [address] [address]- 3154 Sep, [facility] [address], [place] [address]- 1906 Sep, [facility] [address] [address]- 5508 Sep, Diabetes 250.00 [facility] [address], [place] [address]- 2546 Sep, [facility] [address] [facility] [id number] 1620 Sep, [facility] [address], [place] [address]- 1796 August, Hypertension, essential, benign 401.1 ; Coronary atherosclerosis of hopi coronary artery 414.01 and Diabetic neuropathy associated with type 2 diabetes mellitus 250.60 [facility] [address] [facility] [id number], [place] [address]- 4194 Jul, [facility] [address] [id number], [place] [address]- 8398 Jul, [facility] [address], [place] [address]- 1027 Jul, [facility] [address], [place] [address]- 3917 Jun, [facility] [id number] [address]- 1774 Jun, [facility] [id number], [place] [address]- 3336 Jun, [facility] [address], [place] [address]- 7066 Jun, [facility] [address], [place] [address]- 2212 Jun, [facility] [place] [facility] [id number] [address]- 2745 May, [facility] [id number], [place] [address]- 8936 May, [facility] [place] [facility] [id number], [place] [address]- 7016 May, [facility] [id number], [place] [address]- 2546 May, [facility] [place] [facility] [address] [facility] [id number] [place] [address]- 5901 May, 2014 [facility] [place] [facility] [address] [id number] [place] [address]- 6068 May, [facility] [place] [facility] [address] [id number] [place] [address]- 2336 May, [facility] [place] [facility] [address] [id number] [place] [address]- 0182 Apr, [facility] [place] [facility] [address] [id number] [place] [address]- 4279 Apr, [facility] [place] [facility] [address] [id number] [place] [address]- 0492 Apr, [facility] [place] [facility] [address] [id number] [place] [address]- 8443 Apr, [facility] [place] [facility] [address] [id number] [place] [address]- 1395 Mar, [facility] [place] [facility] [address] [id number] [place] [address]- 5336 Mar, [facility] [place] [facility] [address] [id number] [place] 26[address] Mar, [facility] [place] [facility] [address] [id number] [place] [address]- 7992 Mar, [facility] [place] [facility] [address] [id number] [place] [address]- 8584 Feb, [facility] [place] [facility] [address] [id number] [place] [address]- 2596 Feb, [facility] [place] [facility] [address] [id number] [place] [address]- 6842 Feb, [facility] [place] [facility] [address] [id number] [place] [address]- 7176 Feb, [facility] [place] [facility] [address] [id number] [place] [address]- 0353 Feb, [facility] [place] [facility] [address] [id number] [place] [address]- 6885 Feb, [facility] [place] [facility] [address] [id number] [place] [address]- 5788 Feb, [facility] [place] [facility] [address] [id number] [place] 3229 Jan, [facility] [place] [facility] [address] [id number] [place] [address]- 5555 Jan, [facility] [place] [facility] [address] [id number] [place] [address]- 9658 Dec, [facility] [place] [facility] [address] [id number] [place] [address]- 3568 Dec, [facility] [place] [facility] [address] [id number] [place] [address]- 3609 Dec, [facility] [place] [facility] [address] [id number] [place] [address]- 9239 Dec, [facility] [place] [facility] [address] [id number] [place] [address]- 7069 04 Dec, 2013 [facility] [place] [facility] [address] [id number] [place] [address]- 1629 Dec, [facility] [place] [facility] [address] [id number], [place] [address]- 0319 Dec, [facility] [place] [facility] [address] [id number], [place] [address]- 4360 Dec, [facility] [place] [facility] [address] [id number] [place] [address]- 4288 Nov, [facility] [place] [facility] [address] [id number] [place] [address]- 5742 Nov, [facility] [place] [facility] [address] [id number] [place] [address]- 3555 Nov, [facility] [place] [facility] [address] [id number] [place] [address]- 2630 Nov, [facility] [place] [facility] [address] [id number] [place] [address]- 1345 Oct, [facility] [place] [facility] [address] [id number] [place] [address] Oct, [facility] [place] [facility] [address] [id number] [place] [address] Oct, [facility] [place] [facility] [address] [id number] [place] [address] Oct, [facility] [place] [facility] [address] [id number] [place] [address] Oct, [facility] [place] [facility] [address] [id number] [place] [address] Oct, [facility] [place] [facility] [address] [id number] [place] [address] Oct, [facility] [place] [facility] [address] [id number] [place] [address] Oct, [facility] [place] [facility] [address] [id number] [place] [address] Sep, [facility] [place] [facility] [address] [id number] [place] [address] Sep, [facility] [place] [facility] [address] [id number] [place] [address] August, [facility] [place] [facility] [address] [id number] [place] [address] August, [facility] [place] [facility] [address] [id number] [place] [address] Jul, [facility] [place] [facility] [address] [id number] [place] [address] Jul, [facility] [place] [facility] [address] [id number] [place] [address] Jul, [facility] [place] [facility] [address] [id number] [place] [address] Jul, [facility] [place] [facility] [address] [id number] [place] [address] Jul, [facility] [place] [facility] [address] [id number] [place] [address] Jul, [facility] [place] [facility] [address] [id number] [place] [address] Jul, [facility] [address] [id number] [place] [address] Jul, [facility] [place] [facility] [address] [id number] [place] [address] Jun, [facility] [place] [facility] [address] [id number] [place] [address] Jun, [facility] [place] [facility] [address] [id number] [place] [address] Jun, [facility] [place] [facility] [address] [id number] [place] [address] Jun, [facility] [place] [facility] [address] [id number] [place] [address] May, [facility] [place] [facility] [address] [id number] [place] [address] May, [facility] [place] [facility] [address] [id number] [place] [address] Apr, [facility] [place] [facility] [address] [id number] [place] [address] Apr, [facility] [place] [facility] [address] [id number] [place] [address] Mar, [facility] [place] [facility] [address] [id number] [place] [address] Mar, [facility] [place] [facility] [address] [id number], [place] [address] 18 Mar, 2013 [facility] [place] [facility] [address] [id number] [place] [address]- [address] 18 Mar, 2013 [facility] [place] [facility] [address] [id number] [place] [address] 18 Mar, 2013 [facility] [place] [facility] [address] [id number] [place] [address] 18 Mar, 2013 [facility] [place] [facility] [address] [id number] [place] [address] Feb, [facility] [place] [facility] [address] [id number] [place] [address] Feb, [facility] [place] [facility] [address] [id number] [place] [address] Feb, [facility] [place] [facility] [address] [facility] [id number] [place] [address] Feb, [facility] [place] [facility] [address] [id number] [place] [address] 18 Feb, 2013 [facility] [place] [facility] [address] [id number] [place] [address] 18 Feb, 2013 [facility] [place] [facility] [address] [facility] [id number], [place] [address] Feb, [facility] [place] [facility] [address] [id number], [place] [address] 12 Feb, 2013 [facility] [place] [facility] [address] [id number], [place] [address] 15 Jan, 2013 [facility] [place] [facility] [address] [id number], [place] [address] 15 Jan, 2013 [facility] [place] [facility] [address] [facility] [id number] [address] 14 Jan, 2013 [facility] [place] [facility] [address] [id number], [place] [address] 14 Jan, 2013 [facility] [place] [facility] [address] [id number] [place] [address] 18 Dec, 2012 [facility] [place] [facility] [address] [id number] [place] [address] Dec, [facility] [place] [facility] [address] [id number] [place] [address] Dec, [facility] [place] [facility] [address] [id number] [place] [address] Nov, [facility] [place] [facility] [address] [id number] [place] [address] Nov, [facility] [place] [facility] [address] [id number] [place] [address] Oct, [facility] [place] [facility] [address] [id number] [place] [address] Oct, [facility] [place] [facility] [address] [id number] [place] [address] Oct, [facility] [place] [facility] [address] [id number] [place] [address] Sep, [facility] [place] [facility] [address] [id number] [place] [address] Sep, [facility] [place] [facility] [address] [id number] [place] [address] Sep, [facility] [place] [facility] [address] [id number] [place] [address]139 Sep, [facility] [place] [facility] [address] [id number] [place] [address] 57[address] Sep, [facility] [place] [facility] [address] [id number] [place] [address] Sep, [facility] [place] [facility] [address] [id number] [place] [address] 39[address] August, [facility] [place] [facility] [address] [id number] [place] [address] August, [facility] [address] [id number] [place] [address] August, [facility] [address] [id number] [place] [address]- [address] August, [facility] [address] [id number] [place] [address]- [address] August, [facility] [address] [id number] [place] [address]- 49[address] August, [facility] [address] [id number] [place] [address] 9[address] August, [facility] [address] [id number] [place] [address]- [address] Jul, [facility] [address] [id number] [place] [address]- 7[address] Jul, [facility] [address] [id number] [place] [address]- 6[address] Jun, [facility] [address] [id number] [place] [address]- 4146 Jun, [facility] [address] [id number] [place] [address] 9[address] May, [facility] [address] [id number] [place] [address]- [address] May, [facility] [place] [facility] [address] [id number] [place] [address]- 4348 Apr, [facility] [place] [facility] [address] [id number] [place] [address] 56[address] Mar, [facility] [place] [facility] [address] [id number] [place] [address]- 4[address] Mar, [facility] [place] [facility] [address] [id number] [place] [address] Mar, [facility] [address] [id number] [place] [address]- [address] Mar, [facility] [place] [facility] [address] [id number] [place] [address]- 9397 Mar, [facility] [place] [facility] [address] [id number] [place] [address]- 9[address] Mar, [facility] [place] [facility] [address] [id number] [place] [address]- [address] Feb, [facility] [place] [facility] [address] [id number] [place] [address]- 77[address] Feb, [facility] [place] [facility] [address] [id number] [place] [address]- 4936 Feb, [facility] [place] [facility] [address] [id number] [place] [address]- 7820 Feb, [facility] [place] [facility] [address] [id number] [place] [address]- 2528 Feb, [facility] [place] [facility] [address] [id number] [place] [address]- [address] Feb, [facility] [place] [facility] [address] [id number] [place] [address]- 1761 Feb, [facility] [place] [facility] [address] [id number] [place] [address]- 4400 Feb, [facility] [place] [facility] [address] [id number] [place] [address]- 3486 Jan, [facility] [place] [facility] [address] [id number], [place] [address] Jan, [facility] [place] [facility] [address] [id number] [place] [address]- 8037 28 Dec, 2011 [facility] [place] [facility] [address] [id number] [place] [address]- [address]64 19 Dec, 2011 [facility] [place] [facility] [address] [id number] [place] [address]- 9749 Dec, [facility] [place] [facility] [address] [id number] [place] [address]- 8070 Dec, [facility] [place] [facility] [address] [id number] [place] [address]- 0108 Dec, [facility] [place] [facility] [address] [id number] [place] [address]- 8344 Nov, [facility] [place] [facility] [address] [id number] [place] [address]- 3152 Oct, [facility] [place] [facility] [address] [id number] [place] [address]- 6477 Oct, [facility] [place] [facility] [address] [id number] [place] [address]- 6[address] Sep, [facility] [place] [facility] [address] [id number] [place] [address]- 3522 Sep, [facility] [place] [facility] [address] [id number] [place] [address]- 5108 Sep, [facility] [place] [facility] [address] [id number] [place] [address]- 1040 Sep, [facility] [place] [facility] [address] [id number] [place] [address]- 1098 Sep, [facility] [place] [facility] [address] [id number] [place] [address]- 2870 Sep, [facility] [place] [facility] [address] [id number] [place] [address]- 9457 Sep, [facility] [place] [facility] [address] [id number] [place] [address]- 4212 Sep, [facility] [place] [facility] [address] [id number] [place] [address]- 4499 August, [facility] [place] [facility] [address] [id number] [place] [address]- 4056 August, [facility] [place] [facility] [address] [id number] [place] [address]- 6726 August, [facility] [address] [id number] [place] [address]- 5609 Jul, [facility] [place] [facility] [address] [id number] [place] [address]- 5086 Jul, [facility] [place] [facility] [address] [id number] [place] [address]- 4790 Jun, [facility] [place] [facility] [address] [id number] [place] [address]- 7821 Jun, [facility] [place] [facility] [address] [id number] [place] [address]- 3771 Jun, [facility] [place] [facility] [address] [id number] [place] [address]- 0435 Jun, [facility] [address] [id number] [place] [address]- 5370 May, [facility] [place] [facility] [address] [id number] [place] [address]- 7131 May, [facility] [place] [facility] [address] [id number] [place] [address]- 5385 Apr, [facility] [place] [facility] [address] [id number] [place] [address]- 4249 Apr, [facility] [place] [facility] [address] [id number] [place] [address]- 1804 Apr, [facility] [place] [facility] [address] [id number] [place] [address]- 8718 Mar, [facility] [place] [facility] [address] [id number] [place] [address]- 9142 Mar, [facility] [place] [facility] [address] [id number] [place] [address]- 1529 Mar, [facility] [place] [facility] [address] [id number] [place] [address]- 6947 Feb, [facility] [place] [facility] [address] [id number] [place] [address]- 8912 09 Feb, 2011 [facility] [place] [facility] [address] [id number] [place] [address]- 6443 Feb, [facility] [place] [facility] [address] [id number] [place] [address]- 9889 Feb, [facility] [place] [facility] [address] [id number] [place] [address]- 7[address] Jan, [facility] [place] [facility] [address] [id number] [place] [address]- [address]803 14 Jan, 2011 [facility] [place] [facility] [address] [id number] [place] [address]- 4043 Jan, [facility] [place] [facility] [address] [id number] [place] [address]- 4717 16 Dec, 2010 [facility] [place] [facility] [address] [id number] [place] [address]- 1127 Oct, [facility] [place] [facility] [address] [id number] [place] [address]- 0771 Mar, [facility] [place] [facility] [address] [id number] [place] [address]- 1701 Feb, [facility] [place] [facility] [address] [id number] [place] [address] Feb, [facility] [place] [facility] [address] [id number] [place] [address]- 0020 16 May, 2009 [facility] [place] [facility] [address] [id number] [place] [address]- 2524 Apr, [facility] [place] [facility] [address] [id number] [place] [address]- 4744 Mar, [facility] [place] [facility] [address] [id number] [place] [address]- 8504 30 Jan, 2009 [facility] [place] [facility] [address] [id number] [place] [address]- 285[address] Oct, [facility] [address] [id number], [place] [address]- [address] Jul, [facility] [address] [id number], [place] [address]- 2546 Mar, [facility] [address] [id number], [place] [address]- 2546 Feb, [facility] [address] [id number], [place] [address]- [address]46 Jan, IMMUNIZATIONS No Known Immunizations SOCIAL HISTORY Never Assessed REASON FOR VISIT Silvadene note PLAN OF CARE VITAL SIGNS MEDICATIONS Medication Instructions Dosage Frequency Start Date End Date Duration Status Silver Sulfadiazine 1 % Externally Once a day 1 application to affected area 24h Apr, Apr, 30 days Active RESULTS No Results PROCEDURES [...]
[2018-07-05 12:53] LABS: ALANINE AMINOTRANSFERASE 16 U/L (0-55); ALBUMIN 3.8 GM/DL (3.2-4.5); ALKALINE PHOSPHATASE 117 U/L (40-136); BILIRUBIN,TOTAL 1.2 MG/DL (0.1-1.0); BUN/CREATININE RATIO 16; CALCIUM 9.6 MG/DL (8.5-10.1); CARBON DIOXIDE 27 MMOL/L (21-32); CHLORIDE 100 MMOL/L (98-107); CREATININE SERUM 1.08 MG/DL (0.60-1.30); GFR ESTIMATED > 60; GLUCOSE 177 MG/DL (70-105); POTASSIUM 4.3 MMOL/L (3.6-5.0); SODIUM 137 MMOL/L (135-145); TOTAL PROTEIN 6.7 GM/DL (6.4-8.2)
--- OUTSIDE RECORDS SUMMARY | 2018-07-05 12:54 | XMS REPORT ---
Author Author KATHYA FISCHER Organization [facility] Address [address] [place] [address] Care Team Providers Care Solution Architect Name Role Phone KATHYA FISCHER Unavailable PROBLEMS Type Condition ICD9-CM Code IRJ34-CF Code Onset Dates Condition Status SNOMED Code Problem Stress incontinence of urine N39.3 Active 88791389 Problem Hypertension, benign I10 Active 10120409 Problem Obstructive sleep apnea G47.33 Active 83771024 Problem Controlled type 2 diabetes mellitus without complication, without long -term current use of insulin E11.9 Active 477608642 Problem 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 Active 66016907 Problem Arthritis M19.90 Active 6719763 Problem Uncontrolled type 2 diabetes mellitus without complication, without long-term current use of insulin E11.65 Active 890572790 Problem Polyneuropathy G62.9 Active 55417555 Problem Fibromyalgia M79.7 Active [id number] ALLERGIES No Information ENCOUNTERS Encounter Location Date Diagnosis [place] [id number] [place] [address] 75717- 1424 Oct, [facility] [id number] [place] [address] 19831- 2761 Oct, [facility] [id number] [place] [address] 68291- 1003 Oct, [facility] [id number] [place] [address] 95492- 3476 Sep, [facility] [id number] [place] [address] 90540- 4749 Sep, Uncontrolled type 2 diabetes mellitus without complication, without long-term current use of insulin E11.65 [facility] [id number] [place] [address] 42055- 2296 Sep, Hypertension, benign I10 ; Fibromyalgia M79.7 ; Controlled type 2 diabetes mellitus without complication, without long-term current use of insulin E11.9 and Uncontrolled type 2 diabetes mellitus without complication, without long-term current use of insulin E11.65 [facility] [id number] [place] [address] 59724 2546 Sep, [facility] [id number] [place] [address] 65010- 2546 Sep, Uncontrolled type 2 diabetes mellitus without complication, without long-term current use of insulin E11.65 [facility] [id number] [place] [address] 45409 2546 Sep, [facility] [id number] [place] [address] 53341- 5906 Sep, [facility] [id number] [place] [address] 87994- 3208 Sep, Uncontrolled type 2 diabetes mellitus without complication, without long-term current use of insulin E11.65 and Fibromyalgia M79.7 [facility] [id number] [place] [address] 88645- 0901 August, [facility] [id number] [place] [address] 43379- 0636 August, [facility] [id number] [place] [address] 44098- 9676 August, [facility] [id number] [place] [address] 09356- 6576 August, Fibromyalgia M79.7 [facility] [address], [place] [address]- 5037 Jul, Hypertension, benign I10 [facility] [id number] [place] [address] 90365 2546 Jul, Fibromyalgia M79.7 [facility] [id number] [address]- 7136 Jul, [facility] [id number] [place] [address] 94639- 8460 Jun, [facility] [id number] [place] [address] 73293- 4885 Jun, Hypertension, benign I10 ; Arthritis M19.90 ; [facility]PC current use 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 Z79.891 and Uncontrolled type 2 diabetes mellitus without complication, without long-term current use of insulin E11.65 [facility] [id number] [place] [address] 71471 -1021 06 Jun, 2017 Acute nasopharyngitis J00 and BMI 50.0-59.9, adult Z68.43 [facility] [id number] [place] [address] 82486- 7586 05 Jun, 2017 Fibromyalgia M79.7 [facility] [id number] [place] [address] 38928- 1306 14 May, 2017 [facility] [id number] [place] [address] 98594- 9982 02 May, 2017 Fibromyalgia M79.7 [facility] [id number] [place] [address] 75226- 2921 Apr, Fibromyalgia M79.7 [facility] [id number] [place] [address] 12578- 3323 Apr, [facility] [id number] [place] [address] 25497- 2785 Apr, [facility] [id number] [place] [address] 23881- 9441 Apr, Arthritis M19.90 [facility] [id number] [place] [address] 33804- 7666 Apr, Arthritis M19.90 [facility] [id number] [place] [address] 62483- 3537 Apr, Arthritis M19.90 and Controlled type 2 diabetes mellitus without complication, without long-term current use of insulin E11.9 [facility] [id number] [place] [address] 06228- 3631 Apr, [facility] [id number] [place] [address] 27301- 0733 Apr, Fibromyalgia M79.7 [facility] [id number] [place] [address] 86893- 4150 Mar, [facility] [id number] [place] [address] 67088- 2389 Mar, [facility] [address] [address]203 2549 Mar, Fibromyalgia M79.7 [facility] [address] 22998- 1360 Feb, [facility] [id number] [place] [address] 23702- 9628 Feb, [facility] [address] 26251- 2850 Feb, [facility] [id number] [place] [address] 42312- 1126 Feb, Fibromyalgia M79.7 [facility] [id number] [place] [address] 08189- 0351 Feb, Diabetes type 2, uncontrolled E11.65 and Encounter for immunization Z23 [facility] [id number] [place] [address] 23751- 6085 Jan, [facility] [id number] [place] [address] 08730- 2450 Jan, Fibromyalgia M79.7 [facility] [id number] [place] [address] 16650- 2014 Dec, [facility] [id number] [place] [address] 84458- 2547 Dec, Fibromyalgia M79.7 [facility] [id number] [place] [address] 02904- 3754 Nov, [facility] [address] [address]- 5113 Nov, [facility] [id number] [place] [address] 49107- 5978 Nov, 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 and Polyneuropathy G62.9 [facility] [id number] [place] [address] 39665- 4071 Nov, [facility] [id number] [place] [address] 21569- 1662 Nov, [facility] [id number] [place] [address] 05074- 7478 Oct, Diabetes type 2, uncontrolled E11.65 [facility] [id number] [place] [address] 84239- 1169 Oct, Diabetes type 2, uncontrolled E11.65 ; Polyneuropathy G62.9 and Pain in right wrist M25.531 [facility] [id number] [place] [address] 61643- 1664 Oct, [facility] [id number] [place] [address] 70257- 9692 Oct, Pain in left shoulder M25.512 [facility] [address], [place] [address]- 4604 Sep, [facility] [id number] [place] [address] 07387- 1764 Sep, Pain in left shoulder M25.512 [facility] [address], [place] [address]- 6540 Sep, [facility] [id number] [place] [address] 54478- 3789 August, Pain in left shoulder M25.512 [facility] [address] [address]- 4552 Jul, [facility] [address] [address]- 4643 14 Jul, 2016 [facility] [id number] [place] [address] 11515- 3769 Jul, Pain in left shoulder M25.512 [facility] [id number] [place] [address] 87294- 9382 Jun, [facility] [id number] [place] [address] 31785- 0364 Jun, [facility] [id number] [place] [address] 67832- 6284 Jun, Diabetes type 2, uncontrolled E11.65 ; Fibromyalgia M79.7 and Arthritis M19.90 [facility] [id number] [place] [address] 94971- 0587 Jun, Pain in left shoulder M25.512 [facility] [id number] [place] [address] 30485- 2325 May, [facility] [id number] [place] [address] 41340- 0533 May, Diabetes type 2, controlled E11.9 [facility] [id number] [place] [address] 76309- 8143 May, [facility] [id number] [place] [address] 24339- 7037 May, Uncontrolled type 2 diabetes mellitus without complication, without long-term current use of insulin E11.65 [facility] [address] [address]- 6845 May, Pain in left shoulder M25.512 [facility] [id number] [place] [address] 54935- 3232 03 May, 2016 Diabetes type 2, controlled E11.9 and Uncontrolled type 2 diabetes mellitus without complication, without long-term current use of insulin E11.65 [facility] [id number] [place] [address] 85982- 4128 Apr, [facility] [address] [id number] [place] [address]- 7750 Apr, [facility] [address] [id number] [place] [address]- 2062 Mar, [facility] [address] [id number] [place] [address]- 5589 Mar, [facility] [address] [id number] [place] [address]- 8847 Mar, [facility] [address] [id number] [place] [address]- 5884 Feb, [facility] [address] [id number] [id number] Feb, Dental examination Z01.20 [facility] [address] [id number], [place] [address]- 7101 Jan, [facility] [address] [id number], [place] [address]- 6148 14 Dec, 2015 [facility] [address] [facility] [id number] [place] [address]- 4622 Dec, [facility] [address] [facility] [id number] [place] [address]- 3783 Dec, [facility] [id number] [address]- 1557 Dec, Diabetes type 2, controlled E11.9 [facility] [address] [id number], [place] [address]- 7558 Nov, [facility] [address] [id number] [place] [address]- 5875 Nov, [facility] [address] [id number] [place] [address]- 3203 Nov, [facility] [address] [facility] [id number], [place] [address]- 0384 Nov, [facility] [address] [place] [address]- 1356 Oct, [facility] [address] [place] [address]- 2246 Oct, [facility] [address] [place] [address]- 4044 Oct, [facility] [id number] [place] [address] 32332- 6935 Sep, [facility] [id number] [place] [address], [place] [address]- 9070 Sep, Diabetes type 2, controlled E11.9 [facility] [address] [place] [address]- 9207 Sep, Diabetes type 2, controlled E11.9 [facility] [id number] [place] [address], [place] [address]- 5240 August, [facility] [address], [place] [address]- 2338 August, [facility] [id number] [place] [address] 98366- 3271 August, Type 2 diabetes mellitus without complication E11.9 and Pain in left shoulder M25.512 [facility] [address], [place] [address]- 0189 Jul, [facility] [address], [place] [address]- 2129 Jul, Diabetes type 2, controlled E11.9 and Hypertension, benign I10 [facility] [address] [place] [address]- 6274 Jun, [facility] [address] [place] [address]- 9374 Jun, [facility] [address], [place] [address]- 0148 Jun, Diabetes 250.00 [facility] [address], [place] [address]- 5069 Jun, [facility] [id number] [place] [address] 13912- 8557 May, Diabetes type 2, uncontrolled E11.65 [facility] [id number] [place] [address] 94436- 6704 May, [facility] [id number] [place] [address] 18488- 2410 Apr, Type 2 diabetes mellitus without complication E11.9 [facility] [id number] [place] [address] 23733- 2276 Apr, Encounter for immunization Z23 [facility] [id number] [place] [address] 56236- 5338 Apr, [facility] [id number] [place] [address] 91302- 8377 Mar, [facility] [id number] [place] [address] 08287- 3706 Mar, [facility] [id number] [place] [address] 16395- 7686 Mar, [facility] [id number] [place] [address] 13356- 4736 Feb, [facility] [id number] [place] [address] 82572- 3854 Jan, [facility] [id number] [place] [address] 38827- 8656 Jan, [facility] [id number] [place] [address] 23249- 7611 Jan, [facility] [id number] [place] [address] 43116- 6462 Dec, Diabetes 250.00 and COPD (chronic obstructive pulmonary disease) 496 [facility] [id number] [address]- 2626 Dec, [facility] [address], [place] [address]- 8451 Dec, [facility] [address], [place] [address]- 5967 Nov, [facility] [id number] [place] [address] 33265- 0350 Oct, Diabetes 250.00 [facility] [address], [place] [address]- 0867 Sep, [facility] [id number] [place] [address] 98702- 5182 Sep, [facility] [address], [place] [address]- 7271 Sep, [facility] [id number] [place] [address] 11948- 2127 Sep, Diabetes 250.00 [facility] [address], [place] [address]- 5291 Sep, [facility] [address], [place] [address]- 9952 Sep, [facility] [address], [place] [address]- 7557 August, Hypertension, essential, benign 401.1 ; Coronary atherosclerosis of [place] coronary artery 414.01 and Diabetic neuropathy associated with type 2 diabetes mellitus 250.60 [facility] [address], [place] [address]- 5786 Jul, [facility] [address], [place] [address]- 8106 Jul, [facility] [address], [place] [address]- 4027 Jul, [facility] [address], [place] [address]- 8831 Jun, [facility] [place] [facility] [address] [id number] [place] [address]- 7502 Jun, [facility] [place] [facility] [address] [id number] [place] [address]- 4161 Jun, [facility] [place] [facility] [address] [facility] [id number] [place] [address]- 3214 Jun, [facility] [place] [facility] [address] [id number] [place] [address]- 5816 Jun, [facility] [place] [facility] [address] [id number] [place] [address]- 1533 May, [facility] [place] [facility] [address] [id number] [place] [address]- 2216 May, [facility] [place] [facility] [address] [facility] [id number] [place] [address]- 8270 May, [facility] [place] [facility] [address] [id number] [place] [address]- 0559 May, [facility] [place] [facility] [address] [facility] [id number] [place] [address]- 9003 May, [facility] [place] [facility] [address] [facility] [id number] [place] [address]- 6535 May, [facility] [place] [facility] [address] [facility] [id number], [place] [address]- 5260 May, [facility] [place] [facility] [address] [facility] [id number], [place] [address]- 8382 Apr, [facility] [place] [facility] [address] [id number] [place] [address]- 1969 Apr, [facility] [place] [facility] [address] [facility] [id number], [place] [address]- 1354 Apr, [facility] [place] [facility] [address] [facility] [id number] [place] [address]- 3410 Apr, [facility] [place] [facility] [address] [id number] [place] [address]- 8398 Mar, [facility] [place] [facility] [address] [id number] [place] 0947 Mar, [facility] [place] [facility] [address] [id number] [place] [address]- 8899 Mar, [facility] [place] [facility] [address] [id number] [place] [address]- 4405 Mar, [facility] [place] [facility] [address] [id number] [place] [address]- 4945 Feb, [facility] [place] [facility] [address] [id number] [place] [address]- 4865 Feb, [facility] [place] [facility] [address] [id number] [place] [address]- 4387 Feb, [facility] [place] [facility] [address] [id number] [place] [address]- 6984 Feb, [facility] [place] [facility] [address] [id number] [place] [address]- 1070 Feb, [facility] [place] [facility] [address] [id number] [place] [address]- 7658 Feb, [facility] [place] [facility] [address] [id number] [place] [address]- 2741 Feb, [facility] [place] [facility] [address] [id number] [place] [address]- 8716 Jan, [facility] [place] [facility] [address] [id number] [place] 2641 Jan, [facility] [place] [facility] [address] [id number] [place] [address]- 7908 Dec, [facility] [place] [facility] [address] [id number] [place] 8699 Dec, [facility] [place] [facility] [address] [id number] [place] [address]- 4121 Dec, [facility] [place] [facility] [address] [id number] [place] [address]- 9712 Dec, [facility] [place] [facility] [address] [id number] [place] [address]- 4860 Dec, [facility] [place] [facility] [address] [id number] [place] [address]- 7806 Dec, [facility] [place] [facility] [address] [id number] [place] [address]- 1020 Dec, [facility] [place] [facility] [address] [id number] [place] [address]- 7208 Dec, [facility] [place] [facility] [address] [id number] [place] [address]- 9200 Nov, [facility] [place] [facility] [address] [id number] [place] [address]- 8466 Nov, [facility] [place] [facility] [address] [id number] [place] [address]- 6723 Nov, [facility] [place] [facility] [address] [id number] [place] [address]- 2375 Nov, [facility] [place] [facility] [address] [id number] [place] [address]- 4029 Oct, [facility] [place] [facility] [address] [id number] [place] [address]- 4529 Oct, [facility] [place] [facility] [address] [id number] [place] [address]- 8856 Oct, [facility] [place] [facility] [address] [id number] [place] [address]- 5782 Oct, [facility] [place] [facility] [address] [id number] [place] [address]- 0760 Oct, [facility] [place] [facility] [address] [id number] [place] [address]- 2681 Oct, [facility] [place] [facility] [address] [id number] [place] [address]- 3061 Oct, [facility] [place] [facility] [address] [id number] [place] [address]- 1994 Oct, [facility] [place] [facility] [address] [id number] [place] [address]- 2058 Sep, [facility] [place] [facility] [address] [id number] [place] [address]- 8847 Sep, [facility] [place] [facility] [address] [id number] [place] [address]- 6144 August, [facility] [place] [facility] [address] [id number] [place] [address] August, [facility] [place] [facility] [address] [id number] [place] [address] Jul, [facility] [place] [facility] [address] [id number] [place] [address] Jul, [facility] [place] [facility] [address] [id number] [place] [address] Jul, [facility] [place] [facility] [address] [id number] [place] [address] Jul, [facility] [place] [facility] [address] [id number] [place] [address] Jul, [facility] [place] [facility] [address] [id number] [place] [address] Jul, [facility] [place] [facility] [address] [id number] [place] [address] Jul, [facility] [place] [facility] [address] [id number] [place] [address] Jul, [facility] [place] [facility] [address] [id number] [place] [address] Jun, [facility] [place] [facility] [address] [id number] [place] [address] Jun, [facility] [place] [facility] [address] [id number] [place] [address] Jun, [facility] [place] [facility] [address] [id number] [place] [address] Jun, [facility] [place] [facility] [address] [id number] [place] [address] May, [facility] [place] [facility] [address] [id number] [place] [address] May, [facility] [place] [facility] [address] [id number] [place] [address] Apr, [facility] [place] [facility] [address] [id number] [place] [address] Apr, [facility] [address] [id number] [place] [address] Mar, [facility] [place] [facility] [address] [id number] [place] [address] Mar, [facility] [place] [facility] [address] [id number] [place] [address] Mar, [facility] [place] [facility] [address] [id number] [place] [address] Mar, [facility] [place] [facility] [address] [id number] [place] [address] Mar, [facility] [place] [facility] [address] [id number] [place] [address] Mar, [facility] [place] [facility] [address] [id number] [place] [address] Feb, [facility] [place] [facility] [address] [id number] [place] [address] Feb, [facility] [place] [facility] [address] [id number] [place] Feb, [facility] [place] [facility] [address] [id number], [place] [address] Feb, [facility] [place] [facility] [address] [id number] [place] [address] Feb, [facility] [place] [facility] [address] [id number] [place] [address] 18 Feb, 2013 [facility] [place] [facility] [address] [id number] [place] [address] Feb, [facility] [place] [facility] [address] [id number] [place] [address] Feb, [facility] [place] [facility] [address] [id number] [place] [address] 15 Jan, 2013 [facility] [place] [facility] [address] [id number] [place] [address] 15 Jan, 2013 [facility] [place] [facility] [address] [id number] [place] [address] 14 Jan, 2013 [facility] [place] [facility] [address] [id number] [place] [address] 14 Jan, 2013 [facility] [place] [facility] [address] [id number] [place] [address] 18 Dec, 2012 [facility] [place] [facility] [address] [id number] [place] [address] Dec, [facility] [place] [facility] [address] [id number] [place] [address] 2012 [facility] [place] [facility] [address] [id number] [place] [address] Nov, [facility] [place] [facility] [address] [id number] [place] [address] Nov, [facility] [place] [facility] [address] [id number] [place] [address]255 16 Oct, 2012 [facility] [place] [facility] [address] [id number] [place] [address] 47[address] Oct, [facility] [place] [facility] [address] [id number] [place] [address]185 Oct, [facility] [address] [id number] [place] [address] Sep, [facility] [address] [id number] [place] [address] Sep, [facility] [address] [id number] [place] [address] Sep, [facility] [address] [id number] [place] [address] Sep, [facility] [address] [id number] [place] [address]- [address] Sep, [facility] [address] [id number] [place] [address]- 0489 Sep, [facility] [address] [id number] [place] [address]- 63[address] August, [facility] [address] [id number] [place] [address]- 04[address] August, [facility] [address] [id number] [place] [address]- 7947 August, [facility] [address] [id number] [place] [address]- 67[address] August, [facility] [address] [id number] [place] [address]- 7888 August, [facility] [address] [id number] [place] [address]- 7732 August, [facility] [place] [facility] [address] [id number] [place] [address] 7928 August, [facility] [place] [facility] [address] [id number] [place] [address]- 8680 Jul, [facility] [place] [facility] [address] [id number] [place] [address]- 5574 Jul, [facility] [address] [id number] [place] [address]- 3197 Jun, [facility] [place] [facility] [address] [id number] [place] [address]- 4474 Jun, [facility] [place] [facility] [address] [id number] [place] [address]- 8306 May, [facility] [place] [facility] [address] [id number] [place] [address] May, [facility] [place] [facility] [address] [id number] [place] [address]- 9946 Apr, [facility] [place] [facility] [address] [id number] [place] [address] 3024 Mar, [facility] [place] [facility] [address] [id number] [place] [address]- 0439 Mar, [facility] [place] [facility] [address] [id number] [place] [address] 2712 Mar, [facility] [place] [facility] [address] [id number] [place] [address] 4070 Mar, [facility] [place] [facility] [address] [facility] [id number] [place] [address]- 1360 Mar, [facility] [place] [facility] [address] [id number] [place] [address]- 8983 Mar, [facility] [place] [facility] [address] [id number], [place] [address] Feb, [facility] [place] [facility] [address] [id number] [place] [address]- 2491 Feb, [facility] [place] [facility] [address] [id number] [place] [address]- 7902 Feb, [facility] [place] [facility] [address] [id number] [place] [address]- 0722 Feb, [facility] [place] [facility] [address] [id number] [place] [address]- 1572 Feb, [facility] [place] [facility] [address] [id number] [place] [address]- 4313 Feb, [facility] [place] [facility] [address] [id number] [place] [address]- 0836 Feb, [facility] [place] [facility] [address] [id number] [place] [address]- 3966 Feb, [facility] [place] [facility] [address] [id number] [place] [address]- 4734 Jan, [facility] [place] [facility] [address] [id number] [place] [address]- 5135 Jan, [facility] [place] [facility] [address] [id number] [place] [address]- 9323 Dec, [facility] [place] [facility] [address] [facility] [id number] [place] [address]- 5926 Dec, [facility] [place] [facility] [address] [id number] [place] [address]- 7588 Dec, [facility] [place] [facility] [address] [id number] [place] [address]- 3556 Dec, [facility] [place] [facility] [address] [facility] [id number] [place] [address]- 1537 Dec, [facility] [place] [facility] [address] [facility] [id number] [place] [address]- 1034 Nov, [facility] [place] [facility] [address] [id number] [place] [address]- 0472 Oct, [facility] [place] [facility] [address] [id number] [place] [address]- 7658 Oct, [facility] [place] [facility] [address] [facility] [id number] [place] [address]- 2016 Sep, [facility] [place] [facility] [address] [facility] [id number] [place] [address]- 8179 Sep, [facility] [place] [facility] [address] [id number] [place] [address]- 0225 Sep, [facility] [place] [facility] [address] [id number] [place] [address]- 0248 Sep, [facility] [place] [facility] [address] [id number] [place] [address]- 6182 Sep, [facility] [place] [facility] [address] [id number] [place] [address]- 9368 Sep, [facility] [place] [facility] [address] [id number] [place] [address]- 9842 Sep, [facility] [place] [facility] [address] [id number] [place] [address]- 6630 Sep, [facility] [place] [facility] [address] [id number] [place] [address]- 4052 August, [facility] [place] [facility] [address] [id number] [place] [address]- 9015 August, [facility] [place] [facility] [address] [id number] [place] [address]- 7141 August, [facility] [place] [facility] [address] [id number] [place] [address]- 4042 Jul, [facility] [place] [facility] [address] [id number] [place] [address]- 9920 Jul, [facility] [place] [facility] [address] [id number] [place] [address]- 5352 Jun, [facility] [place] [facility] [address] [id number] [place] [address]- 4647 Jun, [facility] [place] [facility] [address] [id number] [place] [address]- 0251 Jun, [facility] [place] [facility] [address] [id number] [place] [address]- 9981 Jun, [facility] [place] [facility] [address] [id number] [place] [address]- 7587 May, [facility] [place] [facility] [address] [id number] [place] [address]- 6316 May, [facility] [place] [facility] [address] [id number] [place] [address]- 2596 Apr, [facility] [place] [facility] [address] [id number] [place] [address]- 8599 Apr, [facility] [place] [facility] [address] [id number] [place] [address]- 4628 Apr, [facility] [place] [facility] [address] [id number] [place] [address]- 0588 Mar, [facility] [place] [facility] [address] [id number] [place] [address]- 1577 Mar, [facility] [place] [facility] [address] [facility] [id number] [place] [address]- 5753 Mar, [facility] [place] [facility] [address] [id number] [place] [address]- 1746 Feb, [facility] [place] [facility] [address] [id number], [place] [address]- 3208 Feb, [facility] [place] [facility] [address] [facility] [id number], [place] [address]- 9791 Feb, [facility] [place] [facility] [address] [id number], [place] [address]- 8331 Feb, [facility] [place] [facility] [address] [id number], [place] [address]- 1381 Jan, [facility] [place] [facility] [address] [id number], [place] [address]- 0456 14 Jan, 2011 [facility] [place] [facility] [address] [id number], [place] [address]- [address]39 12 Jan, 2011 [facility] [place] [facility] [address] [id number] [place] [address]- 3168 16 Dec, 2010 [facility] [place] [facility] [id number], [place] [address]- [address] Oct, [facility] [id number], [place] [address]- 4132 Mar, [facility] [id number], [place] [address]- 3518 Feb, [facility] [id number], [place] [address]- 5177 Feb, [facility] [id number], [place] [address]- 9491 May, [facility] [id number] [place] [address]- 0755 Apr, [facility] [id number], [place] [address]- 0185 Mar, [facility] [id number] [place] [address]- 8193 Jan, [facility] [id number], [place] [address]- 4803 Oct, [facility] [id number], [place] [address]- 4740 Jul, [facility] [id number], [place] [address]361 Mar, [facility] [id number], [place] [address]- 2289 Feb, [facility] [address] [id number], [place] [address] 150[address] Jan, IMMUNIZATIONS No Known Immunizations SOCIAL HISTORY Never Assessed REASON FOR VISIT Controlled Med Refill 06/03/17 PLAN OF CARE VITAL SIGNS MEDICATIONS Medication Instructions Dosage Frequency Start Date End Date Duration Status Lyrica 200 mg Orally Three times a day 1 capsule 8h 18 days Active RESULTS No Results PROCEDURES No [...]
--- OUTSIDE RECORDS SUMMARY | 2018-07-05 12:55 | XMS REPORT ---
Author Author KATHYA FISCHER Organization [facility] Address [address] [place] [address] Care Team Providers Care Leather Sorter Name Role Phone KATHYA FISCHER Unavailable PROBLEMS Type Condition ICD9-CM Code [id number] Code Onset Dates Condition Status SNOMED Code Problem Hypertension, benign I10 Active 90013676 Problem Obstructive sleep apnea G47.33 Active 65985624 Problem Controlled type 2 diabetes mellitus without complication, without long -term current use of insulin E11.9 Active 142665465 Problem 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 Active 35547059 Problem Arthritis M19.90 Active 1543012 Problem Uncontrolled type 2 diabetes mellitus without complication, without long-term current use of insulin E11.65 Active 761035902 Problem Polyneuropathy G62.9 Active 14492174 Problem Fibromyalgia M79.7 Active 228083140 ALLERGIES No Information ENCOUNTERS Encounter Location Date Diagnosis [facility] [id number] [place] [address] 56348- 2900 Sep, Uncontrolled type 2 diabetes mellitus without complication, without long-term current use of insulin E11.65 [facility] [address] [place] [address] 17073- 2278 Sep, [facility] [id number] [place] [address] 76437- 1546 Sep, [facility] [id number] [place] [address] 32485- 7329 Sep, Uncontrolled type 2 diabetes mellitus without complication, without long-term current use of insulin E11.65 and Fibromyalgia M79.7 [facility] [id number] [place] [address] 32422- 2696 August, [facility] [id number] [place] [address] 22507- 1531 August, [facility] [address] [place] [address] 37989- 7278 August, [facility] [address] 83114- 5084 August, Fibromyalgia M79.7 [facility] [id number] [place] [address] 19032- 1679 Jul, Hypertension, benign I10 [facility] [address] 40120- 5820 Jul, Fibromyalgia M79.7 [facility] [address] 54806- 6066 Jul, [facility] [address] 77395- 6785 Jun, [facility] [address] 34963- 4278 Jun, Hypertension, benign I10 ; Arthritis M19.90 ; senior care current use 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 Z79.891 and Uncontrolled type 2 diabetes mellitus without complication, without long-term current use of insulin E11.65 [facility] [id number] [place] [address] 69902 -3810 Jun, Acute nasopharyngitis J00 and BMI 50.0-59.9, adult Z68.43 [facility] [id number] [place] [address] 92787- 1653 Jun, Fibromyalgia M79.7 [facility] [id number] [place] [address] 90190- 8441 May, [facility] [address] 48553- 5659 May, Fibromyalgia M79.7 [facility] [id number] [place] [address] 34293- 1087 Apr, Fibromyalgia M79.7 [facility] [address] 66830 2546 Apr, [facility] [address] [place] [address] 44578 2546 Apr, [facility] [address] [place] [address] 59813 2546 Apr, Arthritis M19.90 [facility] [address] [place] [address] 17391 2546 Apr, Arthritis M19.90 [facility] [id number] [place] [address] 88912 2546 Apr, Arthritis M19.90 and Controlled type 2 diabetes mellitus without complication, without long-term current use of insulin E11.9 [facility] [id number] [place] [address] 52072 2546 Apr, [facility] [id number] [place] [address] 05361 2546 Apr, Fibromyalgia M79.7 [facility] [address] [place] [address] 13841 2543 Mar, [facility] [id number] [place] [address] 01208 2546 Mar, [facility] [address] [place] [address] 00834 2540 Mar, Fibromyalgia M79.7 [facility] [address] [place] [address] 19758 2546 Feb, [facility] [address] [address] 2546 Feb, [facility] [id number] [place] [address] 67079 2546 Feb, [facility] [address] [address] 2546 Feb, Fibromyalgia M79.7 [facility] [id number] [place] [address] 77567- 3460 Feb, Diabetes type 2, uncontrolled E11.65 and Encounter for immunization Z23 [facility] [id number] [place] [address] 94170- 1347 Jan, [facility] [id number] [place] [address] 91354- 1770 Jan, Fibromyalgia M79.7 [facility] [id number] [place] [address] 91111- 7117 Dec, [facility] [id number] [place] [address] 46020- 7393 Dec, Fibromyalgia M79.7 [facility] [id number] [place] [address] 81945- 8932 Nov, [facility] [id number] [place] [address] 42207- 9663 Nov, [facility] [id number] [place] [address] 71689- 1233 Nov, 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 and Polyneuropathy G62.9 [facility] [id number] [place] [address] 12709- 2180 Nov, [facility] [id number] [place] [address] 03592- 2073 Nov, [facility] [id number] [place] [address] 89390- 4383 Oct, Diabetes type 2, uncontrolled E11.65 [facility] [id number] [place] [address] 62042- 0583 Oct, Diabetes type 2, uncontrolled E11.65 ; Polyneuropathy G62.9 and Pain in right wrist M25.531 [facility] [id number] [place] [address] 01728- 2466 Oct, [facility] [id number] [place] [address] 95688- 9204 Oct, Pain in left shoulder M25.512 [facility] [address] [address]- 3926 Sep, [facility] [id number] [place] [address] 69752 2546 Sep, Pain in left shoulder M25.512 [facility] [id number] [address] 2546 Sep, [facility] [id number] [place] [address] 68021- 2766 August, Pain in left shoulder M25.512 [facility] [id number] [place] [address] 22689- 5896 Jul, [facility] [id number] [place] [address] 25554- 3526 Jul, [facility] [id number] [place] [address] 33779- 9776 Jul, Pain in left shoulder M25.512 [facility] [address] [address]- 9656 Jun, [facility] [id number] [place] [address] 73041- 0506 Jun, [facility] [id number] [address]- 7516 Jun, Diabetes type 2, uncontrolled E11.65 ; Fibromyalgia M79.7 and Arthritis M19.90 [facility] [id number] [address]- 3946 Jun, Pain in left shoulder M25.512 [facility] [id number] [place] [address] 50148 2546 May, [facility] [id number] [address] 2546 May, Diabetes type 2, controlled E11.9 [facility] [id number] [address]- 3181 17 May, 2016 [facility] [address] [place] [address] 63423- 4095 May, Uncontrolled type 2 diabetes mellitus without complication, without long-term current use of insulin E11.65 [facility] [address] [address]- 6304 15 May, 2016 Pain in left shoulder M25.512 [facility] [id number] [place] [address] 15706- 2898 03 May, 2016 Diabetes type 2, controlled E11.9 and Uncontrolled type 2 diabetes mellitus without complication, without long-term current use of insulin E11.65 [facility] [id number] [place] [address] 40410- 9583 Apr, [facility] [id number] [place] [address] 56575- 4240 Apr, [facility] [id number] [place] [address] 31934- 2163 Mar, [facility] [id number] [place] [address] 78571- 7398 Mar, [facility] [id number] [place] [address] 35726- 0435 Mar, [facility] [address] [address]- 6397 Feb, [facility] [address] [place] [address] [id number] Feb, Dental examination Z01.20 [facility] [address] [place] [address] 226860- 9437 Jan, [facility] [id number] [place] [address] 22580- 8329 14 Dec, 2015 [facility] [address] [address]- 8945 Dec, [facility] [address] [id number] [place] [address]- 4782 Dec, [facility] [address] [id number] [place] [address]- 3621 Dec, Diabetes type 2, controlled E11.9 [facility] [address] [id number] [place] [address]- 1187 Nov, [facility] [address] [id number] [place] [address]- 0181 Nov, [facility] [address] [id number] [place] [address]- 5612 Nov, [facility] [address] [id number] [place] [address]- 5458 Nov, [facility] [address] [facility] [id number] [place] [address]- 5022 Oct, [facility] [address] [facility] [id number] [place] [address]- 4342 Oct, [facility] [address] [id number] [place] [address]- 4092 Oct, [facility] [address] [facility] [id number] [place] [address]- 5871 Sep, [facility] [address] [facility] [id number] [place] [address]- 6330 Sep, Diabetes type 2, controlled E11.9 [facility] [address] [id number] [place] [address]- 8866 Sep, Diabetes type 2, controlled E11.9 [facility] [address] [facility] [id number] [place] [address]- 3061 August, [facility] [address] [facility] [id number] [place] [address]- 1886 August, [facility] [address] [facility] [id number] [place] [address]- 1397 August, Type 2 diabetes mellitus without complication E11.9 and Pain in left shoulder M25.512 [facility] [id number] [place] [address] 44011- 9276 Jul, [facility] [id number] [place] [address] 83490- 4699 Jul, Diabetes type 2, controlled E11.9 and Hypertension, benign I10 [facility] [address] 74993- 0586 Jun, [facility] [id number] [place] [address] 06059- 3713 Jun, [facility] [address] 04762- 5610 Jun, Diabetes 250.00 [facility] [address] 66362- 6809 Jun, [facility] [id number] [place] [address] 91475- 4481 May, Diabetes type 2, uncontrolled E11.65 [facility] [id number] [place] [address] 48269- 2243 May, [facility] [id number] [place] [address] 59510- 6089 Apr, Type 2 diabetes mellitus without complication E11.9 [facility] [id number] [place] [address] 34087- 7433 Apr, Encounter for immunization Z23 [facility] [id number] [place] [address] 72829- 9604 Apr, [facility] [address] 83277- 2431 Mar, [facility] [id number] [place] [address] 73609- 0161 Mar, [facility] [address] 34453- 9167 Mar, [facility] [address] [address]- 0558 Feb, [facility] [address] [address]- 9586 Jan, [facility] [address] [address]- 5285 Jan, [facility] [id number] [place] [address] 40442- 7539 Jan, [facility] [address] [address]- 5246 Dec, Diabetes 250.00 and COPD (chronic obstructive pulmonary disease) 496 [facility] [address] [address]- 7981 Dec, [facility] [id number] [place] [address] 91778- 3402 Dec, [facility] [address] [address]- 4530 Nov, [facility] [id number] [place] [address] 75857- 9315 Oct, Diabetes 250.00 [facility] [address] [address]- 9783 Sep, [facility] [address] [address]- 2062 Sep, [facility] [address] [address]- 1365 Sep, [facility] [address] [address]- 5943 Sep, Diabetes 250.00 [facility] [address] [address]- 4815 Sep, [facility] [id number] [place] [address] 89465- 8373 Sep, [facility] [address] [facility] [id number] [address]- 0006 August, Hypertension, essential, benign 401.1 ; Coronary atherosclerosis of [place] coronary artery 414.01 and Diabetic neuropathy associated with type 2 diabetes mellitus 250.60 [facility] [address] [facility] [id number] [place] 8180 Jul, [facility] [address] [facility] [id number] [address]- 0920 Jul, [facility] [address] [address]- 4761 Jul, [facility] [id number] [address]- 5206 Jun, [facility] [address] [address]- 0183 Jun, [facility] [id number] [address]- 9683 Jun, [facility] [address] [address]- 2358 Jun, [facility] [address] [address]- 0876 Jun, [facility] [address] [address]- 1524 May, [facility] [id number] [address]- 2563 May, [facility] [id number] 2404 May, [facility] [address] [address]- 6100 May, [facility] [id number] [address]- 9476 May, [facility] [place] [facility] [address] [id number] [place] [address]- 5719 May, [facility] [place] [facility] [address] [id number] [place] [address]- 8167 May, [facility] [place] [facility] [address] [id number] [place] [address]- 9614 Apr, [facility] [place] [facility] [address] [id number] [place] [address]- 7867 Apr, [facility] [place] [facility] [address] [id number] [place] [address]- 9329 Apr, [facility] [place] [facility] [address] [id number] [place] [address]- 3721 Apr, [facility] [place] [facility] [address] [id number] [place] [address]- 1976 Mar, [facility] [place] [facility] [address] [id number] [place] [address]- 9466 Mar, [facility] [place] [facility] [address] [id number] [place] [address]- 7761 Mar, [facility] [place] [facility] [address] [id number] [place] [address]- 4138 Mar, [facility] [place] [facility] [address] [id number] [place] [address]- 9731 Feb, [facility] [place] [facility] [address] [id number] [place] [address]- 5072 Feb, [facility] [place] [facility] [address] [id number] [place] [address]- 0531 Feb, [facility] [place] [facility] [address] [id number] [place] 3582 Feb, [facility] [place] [facility] [address] [id number] [place] [address]- 1217 Feb, [facility] [place] [facility] [address] [id number] [place] [address]- 1024 Feb, [facility] [place] [facility] [address] [id number] [place] [address]- 1993 Feb, [facility] [place] [facility] [address] [id number] [place] [address]- 7317 Jan, [facility] [place] [facility] [address] [id number] [place] [address]- 1820 Jan, [facility] [place] [facility] [address] [id number] [place] [address]- 4617 Dec, [facility] [place] [facility] [address] [id number] [place] [address]- 8981 Dec, [facility] [place] [facility] [address] [id number] [place] [address]- 2518 Dec, [facility] [place] [facility] [address] [id number] [place] [address]- 8847 Dec, [facility] [place] [facility] [address] [id number] [place] [address]- 7673 Dec, [facility] [place] [facility] [address] [id number] [place] [address]- 5780 Dec, [facility] [place] [facility] [address] [id number] [place] [address]- 5483 Dec, [facility] [place] [facility] [address] [id number] [address]- 6977 Dec, [facility] [place] [facility] [address] [id number] [address]- 0257 Nov, [facility] [place] [facility] [address] [id number] [place] [address]- 1859 Nov, [facility] [place] [facility] [address] [id number] [place] [address]- 5871 Nov, [facility] [place] [facility] [address] [id number] [place] [address]- 0304 Nov, [facility] [place] [facility] [address] [id number] [place] [address]- 5903 14 Oct, 2013 [facility] [place] [facility] [address] [id number] [place] [address]- 7619 Oct, 2013 [facility] [place] [facility] [address] [id number] [place] [address] Oct, 2013 [facility] [place] [facility] [address] [id number] [place] [address] Oct, 2013 [facility] [place] [facility] [address] [id number] [place] [address] Oct, 2013 [facility] [place] [facility] [address] [id number] [place] [address] Oct, [facility] [place] [facility] [address] [id number] [place] [address] Oct, [facility] [place] [facility] [address] [id number] [place] [address] Oct, [facility] [place] [facility] [address] [id number] [place] [address] Sep, [facility] [place] [facility] [address] [id number] [place] [address] Sep, [facility] [place] [facility] [address] [id number] [place] [address] August, [facility] [place] [facility] [address] [id number] [place] [address] August, [facility] [place] [facility] [address] [id number] [place] [address] Jul, [facility] [place] [facility] [address] [id number] [place] [address] Jul, [facility] [place] [facility] [address] [id number] [place] [address] Jul, [facility] [place] [facility] [address] [id number] [place] [address] Jul, [facility] [place] [facility] [address] [id number] [place] [address] Jul, [facility] [place] [facility] [address] [id number] [place] [address]- [address] Jul, [facility] [place] [facility] [address] [id number] [place] [address] Jul, [facility] [place] [facility] [address] [id number] [place] [address] Jul, [facility] [address] [id number] [place] [address] Jun, [facility] [place] [facility] [address] [id number] [place] [address] Jun, [facility] [address] [id number] [place] [address] Jun, [facility] [place] [facility] [address] [id number] [place] [address] Jun, [facility] [place] [facility] [address] [id number] [place] [address] May, [facility] [place] [facility] [address] [id number] [place] [address]- [address] May, [facility] [place] [facility] [address] [id number] [place] [address] Apr, [facility] [place] [facility] [address] [id number] [place] [address] Apr, [facility] [place] [facility] [address] [id number] [place] [address] Mar, [facility] [place] [facility] [address] [id number] [place] [address] Mar, [facility] [place] [facility] [address] [id number] [place] [address] Mar, [facility] [place] [facility] [address] [id number] [address] 18 Mar, 2013 [facility] [place] [facility] [address] [id number] [place] [address] 18 Mar, 2013 [facility] [place] [facility] [address] [id number] [place] [address] 18 Mar, 2013 [facility] [place] [facility] [address] [id number] [place] [address] Feb, [facility] [place] [facility] [address] [id number] [place] [address] Feb, [facility] [place] [facility] [address] [id number] [place] [address] Feb, [facility] [place] [facility] [address] [id number] [place] [address] Feb, [facility] [place] [facility] [address] [facility] [id number] [place] [address]- [address] Feb, [facility] [place] [facility] [address] [id number] [place] [address] 18 Feb, 2013 [facility] [place] [facility] [address] [facility] [id number] [place] [address] Feb, [facility] [place] [facility] [address] [facility] [id number] [place] [address] Feb, [facility] [place] [facility] [address] [id number] [place] [address] 15 Jan, 2013 [facility] [place] [facility] [address] [id number] [place] [address] 15 Jan, 2013 [facility] [place] [facility] [address] [id number] [address] 14 Jan, 2013 [facility] [place] [facility] [address] [id number] [address] 14 Jan, 2013 [facility] [place] [facility] [address] [facility] [id number] [address] 18 Dec, 2012 [facility] [place] [facility] [address] [id number] [place] [address] Dec, [facility] [place] [facility] [address] [id number] [place] [address] Dec, [facility] [place] [facility] [address] [id number] [place] [address] Nov, [facility] [place] [facility] [address] [id number] [place] [address] Nov, [facility] [place] [facility] [address] [id number] [place] [address] Oct, [facility] [place] [facility] [address] [id number] [place] [address] Oct, [facility] [place] [facility] [address] [id number] [place] [address] Oct, [facility] [place] [facility] [address] [id number] [place] [address] 8979 Sep, [facility] [place] [facility] [address] [id number] [place] [address] Sep, [facility] [place] [facility] [address] [id number] [place] [address]678 Sep, [facility] [place] [facility] [address] [id number] [place] [address] 80[address] Sep, [facility] [place] [facility] [address] [id number] [place] [address]- 49[address] Sep, [facility] [place] [facility] [address] [id number] [place] [address]- [address] Sep, [facility] [place] [facility] [address] [id number] [place] [address]- 1135 August, [facility] [place] [facility] [address] [id number] [place] [address] August, [facility] [place] [facility] [address] [id number] [place] [address] 9135 August, [facility] [address] [id number] [place] [address] August, [facility] [address] [id number] [place] [address] 6[address] August, [facility] [address] [id number] [place] [address] August, [facility] [address] [id number] [place] [address]- 0250 August, [facility] [address] [id number] [place] [address]- 38[address] Jul, [facility] [address] [id number] [place] [address]- 8[address] Jul, [facility] [address] [id number] [place] [address] 8074 Jun, [facility] [address] [id number] [place] [address]- 4[address] Jun, [facility] [address] [id number] [place] [address]- 1341 May, [facility] [address] [id number] [place] [address]- 5[address] May, [facility] [address] [id number] [place] [address]- 0917 Apr, [facility] [place] [facility] [address] [id number] [place] [address] 6165 Mar, [facility] [place] [facility] [address] [id number] [place] [address]- 2582 Mar, [facility] [place] [facility] [address] [id number] [place] [address] Mar, [facility] [place] [facility] [address] [id number] [place] [address] Mar, [facility] [place] [facility] [address] [id number] [place] [address] 7113 Mar, [facility] [place] [facility] [address] [id number] [place] [address]- 3208 Mar, [facility] [place] [facility] [address] [id number] [place] [address]- 8557 Feb, [facility] [place] [facility] [address] [id number] [place] [address]- 7133 Feb, [facility] [place] [facility] [address] [id number] [place] [address]- 1543 Feb, [facility] [place] [facility] [address] [id number] [place] [address]- 6909 Feb, [facility] [place] [facility] [address] [id number] [place] [address]- 3167 Feb, [facility] [place] [facility] [address] [facility] [id number] [place] [address]- 7889 Feb, [facility] [place] [facility] [address] [id number] [place] [address]- 5931 Feb, [facility] [place] [facility] [address] [id number] [place] [address]- 6389 Feb, [facility] [place] [facility] [address] [facility] [id number] [place] [address]- 5636 Jan, [facility] [place] [facility] [address] [id number] [place] [address]- 6936 Jan, [facility] [place] [facility] [address] [id number] [place] [address]- 1344 28 Dec, 2011 [facility] [place] [facility] [address] [id number] [place] [address]- 3351 19 Dec, 2011 [facility] [place] [facility] [address] [facility] [id number] [place] [address]- 5857 18 Dec, 2011 [facility] [place] [facility] [address] [id number] [place] [address]- 4817 Dec, [facility] [place] [facility] [address] [id number] [place] [address]- 3300 Dec, [facility] [place] [facility] [address] [id number] [place] [address]- 5241 Nov, [facility] [place] [facility] [address] [id number] [place] [address]- 4565 Oct, [facility] [place] [facility] [address] [id number] [place] [address]- 9522 Oct, [facility] [place] [facility] [address] [id number] [place] [address]- 1253 Sep, [facility] [place] [facility] [address] [id number] [place] [address]- 5032 Sep, [facility] [place] [facility] [address] [id number] [place] [address]- 4029 Sep, [facility] [place] [facility] [address] [id number] [place] [address]- 7905 Sep, [facility] [place] [facility] [address] [id number] [place] [address]- 8970 Sep, [facility] [place] [facility] [address] [id number] [place] [address]- 0635 Sep, [facility] [place] [facility] [address] [id number] [place] [address]- 1375 Sep, [facility] [place] [facility] [address] [id number] [place] [address]- 5807 Sep, [facility] [place] [facility] [address] [id number] [place] [address]- 2924 August, [facility] [place] [facility] [address] [id number] [place] [address]- 5659 August, [facility] [place] [facility] [address] [id number] [place] [address]- 5060 August, [facility] [place] [facility] [address] [id number] [place] [address]- 0138 Jul, [facility] [address] [id number] [place] [address]- 3960 Jul, [facility] [place] [facility] [address] [id number] [place] [address]- 4766 Jun, [facility] [place] [facility] [address] [id number] [place] [address]- 7366 Jun, [facility] [place] [facility] [address] [id number] [place] [address]- 3291 Jun, [facility] [place] [facility] [address] [id number] [place] [address]- 8955 Jun, [facility] [place] [facility] [address] [id number] [place] [address]- 7789 May, [facility] [address] [facility] [id number] [place] [address]- 8622 May, [facility] [place] [facility] [address] [id number] [place] [address]- 0257 Apr, [facility] [address] [facility] [id number] [place] [address]- 9605 Apr, [facility] [place] [facility] [address] [facility] [id number] [place] [address]- 9537 Apr, [facility] [address] [id number] [place] [address]- 9376 Mar, [facility] [place] [facility] [address] [id number] [place] [address]- 2629 Mar, [facility] [place] [facility] [address] [id number] [place] [address]- 3508 Mar, [facility] [place] [facility] [address] [id number] [place] [address]- 2532 Feb, [facility] [place] [facility] [address] [facility] [id number] [place] [address]- 0132 Feb, [facility] [place] [facility] [address] [id number] [place] [address]- 2468 09 Feb, 2011 [facility] [place] [facility] [address] [id number] [place] [address]- 1872 09 Feb, 2011 [facility] [place] [facility] [address] [id number] [place] [address]- 3738 Jan, [facility] [place] [facility] [address] [id number] [place] [address]- 0430 14 Jan, 2011 [facility] [place] [facility] [address] [id number] [place] [address]- 3082 Jan, [facility] [place] [facility] [address] [id number] [place] [address]- 7889 16 Dec, 2010 [facility] [place] [facility] [address] [id number] [place] [address]- 1789 Oct, [facility] [place] [facility] [address] [id number] [place] [address]- 5729 24 Mar, 2010 [facility] [place] [facility] [address] [id number] [place] [address]- 9647 Feb, [facility] [place] [facility] [address] [id number] [place] [address]- 3882 Feb, [facility] [place] [facility] [address] [facility] [id number] [place] [address]- 0920 16 May, 2009 [facility] [place] [facility] [address] [id number] [place] [address]- 5633 Apr, [facility] [place] [facility] [address] [id number] [place] [address]- 4316 29 Mar, 2009 [facility] [place] [facility] [address] [id number] [place] [address]- 5926 30 Jan, 2009 [facility] [place] [facility] [address] [id number] [place] [address] 2546 15 Oct, 2008 [facility] [place] [facility] [address] [id number] [place] [address] 6[address] Jul, [facility] [address] [facility] [id number] [place] [address]- 2546 Mar, [facility] [address] [facility] [id number] [address] 2546 Feb, [facility] [address] [facility] [id number] [address] 3[address] Jan, IMMUNIZATIONS No Known Immunizations SOCIAL HISTORY Never Assessed REASON FOR VISIT Refill request PLAN OF CARE VITAL SIGNS MEDICATIONS Medication Instructions Dosage Frequency Start Date End Date Duration Status Duloxetine HCl 60 MG Orally 2 times a day 1 capsule 12h 90 days Active RESULTS No Results PROCEDURES [...]
--- OUTSIDE RECORDS SUMMARY | 2018-07-05 12:57 | XMS REPORT ---
Author Author KATHYA FISCHER Organization [facility] Address [address] [place] [address] Care [address] Scan Technician Name Role Phone KATHYA FISCHER Unavailable PROBLEMS Type Condition ICD9-CM Code SFF39-CU Code Onset Dates Condition Status SNOMED Code Problem Hypertension, benign I10 Active 42905194 Problem Obstructive sleep apnea G47.33 Active 34022990 Problem Controlled type 2 diabetes mellitus without complication, without long -term current use of insulin E11.9 Active 536852059 Problem 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 Active 96395608 Problem Arthritis M19.90 Active 5731175 Problem Uncontrolled type 2 diabetes mellitus without complication, without long-term current use of insulin E11.65 Active 534182633 Problem Polyneuropathy G62.9 Active 66002415 Problem Fibromyalgia M79.7 Active [id number] ALLERGIES No Information ENCOUNTERS Encounter Location Date Diagnosis [place] [id number] [place] [address] 16068- 0746 Sep, [place] [id number] [place] [address] 71160- 4135 Sep, Uncontrolled type 2 diabetes mellitus without complication, without long-term current use of insulin E11.65 [facility] [id number] [place] [address] 66290- 3712 Sep, [facility] [id number] [place] [address] 95591- 9135 Sep, [facility] [address] 82564- 4306 Sep, Uncontrolled type 2 diabetes mellitus without complication, without long-term current use of insulin E11.65 and Fibromyalgia M79.7 [facility] [address] 68582- 4512 August, [facility] [id number] [place] [address] 06069- 5511 August, [facility] [address] 84770- 0004 August, [facility] [address] 69938- 0574 August, Fibromyalgia M79.7 [facility] [address] 22860- 5812 Jul, Hypertension, benign I10 [facility] [address] 36018- 0450 Jul, Fibromyalgia M79.7 [facility] [address] 22816- 4293 Jul, [place] [address] 89422- 1473 Jun, 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 [id number] [place] [address] 80084- 0968 Jun, Fibromyalgia M79.7 [facility] [address] 41903- 9888 May, [facility] [address] 82649- 6902 May, Fibromyalgia M79.7 [facility] [address] 78516- 4617 Apr, Fibromyalgia M79.7 [facility] [address] [place] [address] 80090 2546 Apr, [facility] [id number] [place] [address] 20449 2546 Apr, [facility] [id number] [place] [address] 02816 2546 Apr, Arthritis M19.90 [facility] [id number] [place] [address] 93050 2546 Apr, Arthritis M19.90 [facility] [id number] [place] [address] 38405 2546 Apr, Arthritis M19.90 and Controlled type 2 diabetes mellitus without complication, without long-term current use of insulin E11.9 [facility] [id number] [place] [address] 82598 2546 Apr, [facility] [address] [place] [address] 66228 2546 Apr, Fibromyalgia M79.7 [facility] [id number] [place] [address] 34482 2546 Mar, [facility] [id number] [place] [address] 91022 2546 Mar, [facility] [address] [place] [address] 43920 2546 Mar, Fibromyalgia M79.7 [facility] [address] [address] 2546 Feb, [facility] [id number] [place] [address] 62907 2546 Feb, [facility] [address] [address] 2546 Feb, [facility] [id number] [place] [address] 02270- 1774 Feb, Fibromyalgia M79.7 [facility] [id number] [place] [address] 12376- 8125 Feb, Diabetes type 2, uncontrolled E11.65 and Encounter for immunization Z23 [facility] [id number] [place] [address] 24129- 1417 Jan, [facility] [id number] [place] [address] 40954- 9580 Jan, Fibromyalgia M79.7 [facility] [id number] [place] [address] 61606- 7808 Dec, [facility] [address] 54078- 2732 Dec, Fibromyalgia M79.7 [facility] [id number] [place] [address] 25883- 9472 Nov, [facility] [id number] [place] [address] 30278- 4607 Nov, [facility] [id number] [place] [address] 34767- 7483 Nov, 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 and Polyneuropathy G62.9 [facility] [id number] [place] [address] 26500- 1632 Nov, [facility] [id number] [place] [address] 40261- 8156 Nov, [facility] [id number] [place] [address] 76884- 2696 Oct, Diabetes type 2, uncontrolled E11.65 [facility] [id number] [place] [address] 88770- 7594 Oct, Diabetes type 2, uncontrolled E11.65 ; Polyneuropathy G62.9 and Pain in right wrist M25.531 [facility] [id number] [place] [address] 52348- 1491 Oct, [facility] [address] [address]- 7273 Oct, Pain in left shoulder M25.512 [facility] [id number] [place] [address] 57869- 1216 Sep, [facility] [id number] [place] [address] 43088- 9606 Sep, Pain in left shoulder M25.512 [facility] [id number] [place] [address] 84959- 6038 Sep, [facility] [id number] [place] [address] 59973- 0153 August, Pain in left shoulder M25.512 [facility] [id number] [place] [address] 71463- 0906 Jul, [facility] [id number] [place] [address] 32617- 5740 Jul, [facility] [id number] [place] [address] 49173- 1290 Jul, Pain in left shoulder M25.512 [facility] [id number] [place] [address] 78996- 9314 Jun, [facility] [id number] [address]- 1416 Jun, [facility] [id number] [place] [address] 85826 2546 Jun, Diabetes type 2, uncontrolled E11.65 ; Fibromyalgia M79.7 and Arthritis M19.90 [facility] [id number] [place] [address] 02899- 7286 Jun, Pain in left shoulder M25.512 [facility] [address] [address]- 8946 May, [facility] [id number] [place] [address] 84111- 0915 May, Diabetes type 2, controlled E11.9 [facility] [address] [place] [address] 21909- 7439 17 May, 2016 [facility] [id number] [place] [address] 954633- 9073 May, Uncontrolled type 2 diabetes mellitus without complication, without long-term current use of insulin E11.65 [facility] [id number] [place] [address] 05070- 1531 May, Pain in left shoulder M25.512 [facility] [id number] [place] [address] 80741- 0562 03 May, 2016 Diabetes type 2, controlled E11.9 and Uncontrolled type 2 diabetes mellitus without complication, without long-term current use of insulin E11.65 [facility] [id number] [place] [address] 68483- 0464 Apr, [facility] [id number] [place] [address] 26127- 9328 Apr, [facility] [id number] [place] [address] 28640- 4866 Mar, [facility] [id number] [place] [address] 37455- 4635 Mar, [facility] [address] [place] [address] 47640- 0275 Mar, [facility] [address] [place] [address] 84696- 1980 Feb, [facility] [address] [place] [address] [id number] Feb, Dental examination Z01.20 [facility] [address] [place] [address] 978261- 4766 17 Jan, 2016 [facility] [address] [place] [address] 00099- 8145 14 Dec, 2015 [place] [address] [id number] [place] [address]- 7733 Dec, [facility] [address] [id number] [place] [address]- 4686 Dec, [facility] [address] [id number] [place] [address]- 8366 Dec, Diabetes type 2, controlled E11.9 [facility] [address] [id number] [place] [address]- 1656 Nov, [facility] [address] [id number] [place] [address]- 0852 Nov, [facility] [address] [id number] [place] [address]- 6641 Nov, [facility] [address] [facility] [id number] [place] [address]- 2213 Nov, [facility] [address] [facility] [id number] [place] [address]- 5384 Oct, [facility] [address] [id number] [place] [address]- 2407 Oct, [facility] [address] [facility] [id number] [place] [address]- 5028 Oct, [facility] [address] [facility] [id number] [place] [address]- 2248 Sep, [facility] [address] [facility] [id number] [place] [address]- 8279 Sep, Diabetes type 2, controlled E11.9 [facility] [address] [id number] [place] [address]- 6972 Sep, Diabetes type 2, controlled E11.9 [facility] [address] [id number] [place] [address]- 0886 August, [facility] [address] [facility] [id number] [place] [address]- 4532 August, [facility] [address] [place] [address] 60268- 4558 August, Type 2 diabetes mellitus without complication E11.9 and Pain in left shoulder M25.512 [facility] [id number] [place] [address] 72777- 1836 Jul, [facility] [id number] [place] [address] 70887- 3440 Jul, Diabetes type 2, controlled E11.9 and Hypertension, benign I10 [facility] [id number] [place] [address] 88425- 6056 Jun, [facility] [id number] [place] [address] 89108- 6565 Jun, [facility] [id number] [place] [address] 25248- 3915 Jun, Diabetes 250.00 [facility] [id number] [place] [address] 98790- 6019 Jun, [facility] [id number] [place] [address] 14617- 8585 May, Diabetes type 2, uncontrolled E11.65 [facility] [id number] [place] [address] 33366- 8109 May, [facility] [id number] [place] [address] 08897- 1376 Apr, Type 2 diabetes mellitus without complication E11.9 [facility] [address] [place] [address] 97065- 3561 Apr, Encounter for immunization Z23 [facility] [id number] [place] [address] 54615- 6516 Apr, [facility] [id number] [place] [address] 38022- 6080 Mar, [facility] [id number] [place] [address] 89488- 0935 Mar, [facility] [address] 6271 Mar, [facility] [address] [address]- 6420 Feb, [facility] [address] [address]- 1221 Jan, [facility] [address] [place] [address] 601269- 6415 Jan, [facility] [address] [address]- 1844 Jan, [facility] [address] [place] [address] 25135- 4271 Dec, Diabetes 250.00 and COPD (chronic obstructive pulmonary disease) 496 [facility] [id number] [place] [address] 34951- 3401 Dec, [facility] [address] [address]- 8899 Dec, [facility] [id number] [place] [address] 69706- 7122 Nov, [facility] [address] [address]- 2564 Oct, Diabetes 250.00 [facility] [address] [address]- 6806 Sep, [facility] [address] [address]- 3673 Sep, [facility] [address] [address]- 3775 Sep, [facility] [address] [address]- 2679 Sep, Diabetes 250.00 [facility] [address], [place] [address]- 2546 Sep, [facility] [address] [facility] [id number] 4774 Sep, [facility] [address] [address]- 3756 August, Hypertension, essential, benign 401.1 ; Coronary atherosclerosis of [place] coronary artery 414.01 and Diabetic neuropathy associated with type 2 diabetes mellitus 250.60 [facility] [address] [facility] [id number] [address]- 6856 Jul, [facility] [address] [facility] [id number], [place] [address]- 9362 Jul, [facility] [address] [address]- 6554 Jul, [facility] [address] [address]- 7276 Jun, [facility] [address] [id number] [address]- 2074 Jun, [facility] [address] [id number] [address]- 9080 Jun, [facility] [address] [address]- 5860 Jun, [facility] [address] [address]- 5898 Jun, [facility] [place] [facility] [address] [id number] [address]- 0374 May, [facility] [address] [id number] [address]- 4396 May, [facility] [place] [facility] [address] [id number] [address]- 2586 May, [facility] [address] [id number], [place] [address]- 2546 May, [facility] [place] [facility] [address] [facility] [id number] [place] [address]- 4452 May, 2014 [facility] [place] [facility] [address] [id number] [place] [address]- 1429 May, [facility] [place] [facility] [address] [id number] [place] [address] May, [facility] [place] [facility] [address] [id number] [place] [address] Apr, [facility] [place] [facility] [address] [id number] [place] [address] Apr, [facility] [place] [facility] [address] [id number] [place] [address] Apr, [facility] [place] [facility] [address] [id number] [place] [address] Apr, [facility] [place] [facility] [address] [id number] [place] [address] Mar, [facility] [place] [facility] [address] [id number] [place] [address] Mar, [facility] [place] [facility] [address] [id number] [place] Mar, [facility] [place] [facility] [address] [id number] [place] [address] Mar, [facility] [place] [facility] [address] [id number] [place] [address] Feb, [facility] [place] [facility] [address] [id number] [place] [address] Feb, [facility] [place] [facility] [address] [id number] [place] [address] Feb, [facility] [place] [facility] [address] [id number] [place] [address] Feb, [facility] [place] [facility] [address] [id number] [place] [address] Feb, [facility] [place] [facility] [address] [id number] [place] [address]- [address] Feb, [facility] [place] [facility] [address] [id number] [place] [address] Feb, [facility] [place] [facility] [address] [id number] [place] [address] Jan, [facility] [place] [facility] [address] [id number] [place] [address] Jan, [facility] [place] [facility] [address] [id number] [place] [address]- [address] Dec, [facility] [place] [facility] [address] [id number] [place] [address] Dec, [facility] [place] [facility] [address] [id number] [place] [address]- [address] Dec, [facility] [place] [facility] [address] [id number] [place] [address]- [address] Dec, [facility] [place] [facility] [address] [id number] [place] [address]- [address] 04 Dec, 2013 [facility] [place] [facility] [address] [id number] [place] [address]- [address] Dec, [facility] [place] [facility] [address] [id number] [address] Dec, [facility] [place] [facility] [address] [id number] [address] Dec, [facility] [place] [facility] [address] [id number] [place] [address]- [address] Nov, [facility] [place] [facility] [address] [id number] [place] [address] Nov, [facility] [place] [facility] [address] [id number] [place] [address]- [address] Nov, [facility] [place] [facility] [address] [id number] [place] [address]- [address]69 Nov, [facility] [place] [facility] [address] [id number] [place] [address] Oct, [facility] [place] [facility] [address] [id number] [place] [address]- [address] Oct, [facility] [place] [facility] [address] [id number] [place] [address] Oct, [facility] [place] [facility] [address] [id number] [place] [address] Oct, [facility] [place] [facility] [address] [id number] [place] [address]- [address] Oct, [facility] [place] [facility] [address] [id number] [place] [address] Oct, [facility] [place] [facility] [address] [id number] [place] [address]- [address] Oct, [facility] [place] [facility] [address] [id number] [place] [address] Oct, [facility] [place] [facility] [address] [id number] [place] [address] Sep, [facility] [place] [facility] [address] [id number] [place] [address] Sep, [facility] [place] [facility] [address] [id number] [place] [address] August, [facility] [place] [facility] [address] [id number] [place] [address] August, [facility] [place] [facility] [address] [id number] [place] [address] Jul, [facility] [place] [facility] [address] [id number] [place] [address] Jul, [facility] [place] [facility] [address] [id number] [place] [address] Jul, [facility] [place] [facility] [address] [id number] [place] [address] Jul, [facility] [place] [facility] [address] [id number] [place] [address] Jul, [facility] [place] [facility] [address] [id number] [place] [address] Jul, [facility] [place] [facility] [address] [id number] [place] [address] Jul, [facility] [address] [id number] [place] [address] Jul, [facility] [place] [facility] [address] [id number] [place] [place] [address] Jun, [facility] [place] [facility] [address] [id number] [place] [address] Jun, [facility] [place] [facility] [address] [id number] [place] [address] Jun, [facility] [place] [facility] [address] [id number] [place] [address] Jun, [facility] [place] [facility] [address] [id number] [place] [address] May, [facility] [place] [facility] [address] [id number] [place] [address] May, [facility] [place] [facility] [address] [id number] [place] [address] 24[address] Apr, [facility] [place] [facility] [address] [id number] [place] [address]36 Apr, [facility] [place] [facility] [address] [id number] [place] [address] 70[address] Mar, [facility] [place] [facility] [address] [id number] [place] [address] 6141 Mar, [facility] [place] [facility] [address] [id number], [place] [address] 18 Mar, 2013 [facility] [place] [facility] [address] [id number] [place] [address]- 47[address] 18 Mar, 2013 [facility] [place] [facility] [address] [id number] [place] [address]- 3510 18 Mar, 2013 [facility] [place] [facility] [address] [id number] [place] [address]- 8650 18 Mar, 2013 [facility] [place] [facility] [address] [id number] [place] [address]- [address]126 Feb, [facility] [place] [facility] [address] [id number] [place] [address] Feb, [facility] [place] [facility] [address] [id number] [place] [address]- 2846 Feb, [facility] [place] [facility] [address] [facility] [id number] [place] [address]- 99[address] Feb, [facility] [place] [facility] [address] [id number] [place] [address]- 3540 18 Feb, 2013 [facility] [place] [facility] [address] [id number] [place] [address]- 2636 18 Feb, 2013 [facility] [place] [facility] [address] [facility] [id number], [place] [address] 2005 Feb, [facility] [place] [facility] [address] [id number], [place] [address] 12 Feb, 2013 [facility] [place] [facility] [address] [id number], [place] [address] 83[address] 15 Jan, 2013 [facility] [place] [facility] [address] [id number], [place] [address] 15 Jan, 2013 [facility] [place] [facility] [address] [facility] [id number], [place] [address] 14 Jan, 2013 [facility] [place] [facility] [address] [facility] [id number], [place] [address]- 1554 14 Jan, 2013 [facility] [place] [facility] [address] [id number] [place] [address] 2546 18 Dec, 2012 [facility] [place] [facility] [address] [id number] [place] [address]- 2171 Dec, [facility] [place] [facility] [address] [id number] [place] [address]- 2546 Dec, [facility] [place] [facility] [address] [id number] [place] [address]- 4265 Nov, [facility] [place] [facility] [address] [id number] [place] [address] 4169 Nov, [facility] [place] [facility] [address] [id number] [place] [address]- 5[address] Oct, [facility] [place] [facility] [address] [id number] [place] [address]- 8617 Oct, [facility] [place] [facility] [address] [id number] [place] [address]- 3826 Oct, [facility] [place] [facility] [address] [id number] [place] [address] Sep, [facility] [place] [facility] [address] [id number] [place] [address]- 22[address] Sep, [facility] [place] [facility] [address] [id number] [place] [address]- [address]34 Sep, [facility] [place] [facility] [address] [id number] [place] [address]- 3791 Sep, [facility] [place] [facility] [address] [id number] [place] [address]- 4211 Sep, [facility] [place] [facility] [address] [id number] [place] [address]- 6617 Sep, [facility] [place] [facility] [address] [id number] [place] [address]- 2256 August, [facility] [place] [facility] [address] [id number] [place] [address]- [address]44 August, [facility] [address] [id number] [place] [address] 1617 August, [facility] [address] [id number] [place] [address]- 9091 August, [facility] [address] [id number] [place] [address]- 4898 August, [facility] [address] [id number] [place] [address]- 1327 August, [facility] [address] [id number] [place] [address]- 1807 August, [facility] [address] [id number] [place] [address]- 6595 Jul, [facility] [address] [id number] [place] [address]- 9259 Jul, [facility] [address] [id number] [place] [address]- 3458 Jun, [facility] [address] [id number] [place] [address]- 2674 Jun, [facility] [address] [id number] [place] [address]- 7237 May, [facility] [address] [id number] [place] [address]- 5409 May, [facility] [place] [facility] [address] [id number] [place] [address]- 2618 Apr, [facility] [place] [facility] [address] [id number] [place] [address]- 0384 Mar, [facility] [place] [facility] [address] [id number] [place] [address]- 8780 Mar, [facility] [place] [facility] [address] [id number] [place] [address] Mar, [facility] [address] [id number] [place] [address]- 5196 Mar, [facility] [place] [facility] [address] [id number] [place] [address]- 9135 Mar, [facility] [place] [facility] [address] [id number] [place] [address]- 5005 Mar, [facility] [place] [facility] [address] [id number] [place] [address]- 1452 Feb, [facility] [place] [facility] [address] [id number] [place] [address]- 8965 Feb, [facility] [place] [facility] [address] [id number] [place] [address]- 5477 Feb, [facility] [place] [facility] [address] [id number] [place] [address]- 7998 Feb, [facility] [place] [facility] [address] [facility] [id number] [place] [address]- 5284 Feb, [facility] [place] [facility] [address] [id number] [place] [address]- 0617 Feb, [facility] [place] [facility] [address] [id number] [place] [address]- 1075 Feb, [facility] [place] [facility] [address] [facility] [id number] [place] [address]- 8144 Feb, [facility] [place] [facility] [address] [id number] [place] [address]- 1558 Jan, [facility] [place] [facility] [address] [id number], [place] [address]- 3655 Jan, [facility] [place] [facility] [address] [id number] [place] [address]- 7346 28 Dec, 2011 [facility] [place] [facility] [address] [id number] [place] [address]- 6846 19 Dec, 2011 [facility] [place] [facility] [address] [id number] [place] [address]- 7611 Dec, [facility] [place] [facility] [address] [id number] [place] [address]- 0159 Dec, [facility] [place] [facility] [address] [id number] [place] [address]- 8375 Dec, [facility] [place] [facility] [address] [id number] [place] [address]- 9238 Nov, [facility] [place] [facility] [address] [id number] [place] [address]- 6825 Oct, [facility] [place] [facility] [address] [id number] [place] [address]- 0797 Oct, [facility] [place] [facility] [address] [id number] [place] [address]- 9877 Sep, [facility] [place] [facility] [address] [id number] [place] [address]- 3494 Sep, [facility] [place] [facility] [address] [id number] [place] [address]- 8364 Sep, [facility] [place] [facility] [address] [id number] [place] [address]- 4486 Sep, [facility] [place] [facility] [address] [id number] [place] [address]- 0966 Sep, [facility] [place] [facility] [address] [id number] [place] [address]- 0500 Sep, [facility] [place] [facility] [address] [id number] [place] [address]- 5250 Sep, [facility] [place] [facility] [address] [id number] [place] [address]- 2988 Sep, [facility] [place] [facility] [address] [id number] [place] [address]- 7823 August, [facility] [place] [facility] [address] [id number] [place] [address]- 5854 August, [facility] [place] [facility] [address] [id number] [place] [address]- 1965 August, [facility] [address] [id number] [place] [address]- 9055 Jul, [facility] [place] [facility] [address] [id number] [place] [address]- 5416 Jul, [facility] [place] [facility] [address] [id number] [place] [address]- 5071 Jun, [facility] [place] [facility] [address] [id number] [place] [address]- 4846 Jun, [facility] [place] [facility] [address] [id number] [place] [address]- 9389 Jun, [facility] [place] [facility] [address] [id number] [place] [address]- 2376 Jun, [facility] [address] [facility] [id number] [place] [address]- 0041 May, [facility] [place] [facility] [address] [id number] [place] [address]- 8758 May, [facility] [place] [facility] [address] [facility] [id number] [place] [address]- 9502 Apr, [facility] [place] [facility] [address] [facility] [id number] [place] [address]- 4457 Apr, [facility] [place] [facility] [address] [id number] [place] [address]- 1523 Apr, [facility] [place] [facility] [address] [id number] [place] [address]- 8761 Mar, [facility] [place] [facility] [address] [id number] [place] [address]- 1893 Mar, [facility] [place] [facility] [address] [id number] [place] [address]- 9478 Mar, [facility] [place] [facility] [address] [facility] [id number] [place] [address]- 4251 Feb, [facility] [place] [facility] [address] [id number] [place] [address]- 0849 09 Feb, 2011 [facility] [place] [facility] [address] [id number] [place] [address]- 8417 Feb, [facility] [place] [facility] [address] [id number] [place] [address]- 0040 Feb, [facility] [place] [facility] [address] [id number] [place] [address]- 6562 Jan, [facility] [place] [facility] [address] [id number] [place] [address]- 2917 14 Jan, 2011 [facility] [place] [facility] [address] [id number] [place] [address]- 2204 Jan, [facility] [place] [facility] [address] [id number] [place] [address]- 5153 16 Dec, 2010 [facility] [place] [facility] [address] [id number] [place] [address]- 1721 Oct, [facility] [place] [facility] [address] [id number] [place] [address]- 9033 Mar, [facility] [place] [facility] [address] [id number] [place] [address]- 2933 Feb, [facility] [place] [facility] [address] [facility] [id number] [place] [address] Feb, [facility] [place] [facility] [address] [id number] [place] [address]- 2373 16 May, 2009 [facility] [place] [facility] [address] [id number] [place] [address]- 9460 Apr, [facility] [place] [facility] [address] [id number] [place] [address]- 2586 Mar, [facility] [place] [facility] [address] [id number] [place] [address]- 1772 30 Jan, 2009 [facility] [place] [facility] [address] [id number] [place] [address]- 7834 Oct, [facility] [address] [facility] [id number] [address]- 2546 Jul, [facility] [address] [id number] [address]- 2546 Mar, [facility] [address] [facility] [id number] [address]- 2546 Feb, [facility] [address] [id number] [address]- 2546 Jan, IMMUNIZATIONS No Known Immunizations SOCIAL HISTORY Never Assessed REASON FOR VISIT Lidocaine patches PLAN OF CARE VITAL SIGNS MEDICATIONS Medication Instructions Dosage Frequency Start Date End Date Duration Status lidocaine topical 5 %(700 mg/patch) 3 PATCH [...]
--- OUTSIDE RECORDS SUMMARY | 2018-07-05 12:58 | XMS REPORT ---
Author Author KATHYA FISCHER Organization [facility] Address [address] [place] [address] Care Team Providers Care Data Collection Associate Name Role Phone KATYHA FISCHER Unavailable PROBLEMS Type Condition ICD9-CM Code BTZ85-GI Code Onset Dates Condition Status SNOMED Code Problem Hypertension, benign I10 Active 61500761 Problem Obstructive sleep apnea G47.33 Active 86013124 Problem Controlled type 2 diabetes mellitus without complication, without long -term current use of insulin E11.9 Active 107890148 Problem 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 Active 57162578 Problem Arthritis M19.90 Active 5864592 Problem Uncontrolled type 2 diabetes mellitus without complication, without long-term current use of insulin E11.65 Active 371032615 Problem Polyneuropathy G62.9 Active 30870931 Problem Fibromyalgia M79.7 Active 713460952 ALLERGIES No Information ENCOUNTERS Encounter Location Date Diagnosis [place] [address] [address]- [address] Sep, [place] [address] 70840- 9676 Sep, Uncontrolled type 2 diabetes mellitus without complication, without long-term current use of insulin E11.65 [place] [address] [place] [id number] [place] [address] 07680- 6727 Sep, Hypertension, benign I10 ; Fibromyalgia M79.7 ; Controlled type 2 diabetes mellitus without complication, without long-term current use of insulin E11.9 and Uncontrolled type 2 diabetes mellitus without complication, without long-term current use of insulin E11.65 [place] [address] 24686- 0055 Sep, [place] [address] 65163- 4551 Sep, Uncontrolled type 2 diabetes mellitus without complication, without long-term current use of insulin E11.65 [facility] [address] [address] 9934 Sep, [facility] [address] [place] [id number] [place] [address] 58154- 1781 Sep, [facility] [address] [place] [id number] [place] [address] 89634- 4164 Sep, Uncontrolled type 2 diabetes mellitus without complication, without long-term current use of insulin E11.65 and Fibromyalgia M79.7 [facility] [address] [place] [id number] [place] [address] 61889- 5299 August, [place] [address] [place] [id number] [place] [address] 21166- 1651 August, [place] [address] [place] [id number] [place] [address] 46705- 4831 August, [place] [address] [place] [id number] [place] [address] 22055- 5455 August, Fibromyalgia M79.7 [facility] [address] [place] [id number] [place] [address] 72794- 1022 Jul, Hypertension, benign I10 [facility] [address] [place] [id number] [place] [address] 98471- 0708 Jul, Fibromyalgia M79.7 [facility] [address] [place] [id number] [place] [address] 93914- 8409 Jul, [facility] [id number] [place] [address] 88539- 6820 Jun, [facility] [address] [place] [id number] [place] [address] 22634- 4031 Jun, Hypertension, benign I10 ; Arthritis M19.90 ; 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 and Uncontrolled type 2 diabetes mellitus without complication, without long-term current use of insulin E11.65 [facility] [id number] [place] [address] 71253 -6381 Jun, Acute nasopharyngitis J00 and BMI 50.0-59.9, adult Z68.43 [facility] [address] [place] [id number] [place] [address] 74650- 8296 Jun, Fibromyalgia M79.7 [facility] [address] [place] [id number] [place] [address] 35881 2546 May, [facility] [address] [place] [id number] [place] [address] 94566- 0866 May, Fibromyalgia M79.7 [facility] [address] [place] [id number] [place] [address] 94875- 0256 Apr, Fibromyalgia M79.7 [facility] [address] [place] [id number] [place] [address] 10353- 8197 Apr, [facility] [address] [place] [id number] [place] [address] 59365- 0019 Apr, [facility] [address] [place] [id number] [place] [address] 40886- 9491 Apr, Arthritis M19.90 [facility] [address] [place] [id number] [place] [address] 12311- 8146 Apr, Arthritis M19.90 [facility] [address] [place] [id number] [place] [address] 81554- 5192 Apr, Arthritis M19.90 and Controlled type 2 diabetes mellitus without complication, without long-term current use of insulin E11.9 [facility] [id number] [place] [address] 47485- 1406 Apr, [facility] [address] [place] [id number] [place] [address] 53949- 5156 Apr, Fibromyalgia M79.7 [facility] [id number] [place] [address] 03672- 4676 Mar, [facility] [address] [place] [id number] [place] [address] 71413- 5894 Mar, [facility] [address] [place] [id number] [place] [address] 96197- 5555 Mar, Fibromyalgia M79.7 [facility] [address] [place] [id number] [place] [address] 96967- 5425 Feb, [facility] [address] 84008- 6125 Feb, [facility] [address] 96507- 4406 Feb, [facility] [address] 23737- 1608 Feb, Fibromyalgia M79.7 [facility] [address] 71503- 6507 Feb, Diabetes type 2, uncontrolled E11.65 and Encounter for immunization Z23 [facility] [address] [place] [id number] [place] [address] 94732- 9964 Jan, [facility] [address] [place] [id number] [place] [address] 21596- 5220 Jan, Fibromyalgia M79.7 [facility] [address] [place] [id number] [place] [address] 97439- 4722 Dec, [facility] [address] [place] [id number] [place] [address] 19520- 2814 Dec, Fibromyalgia M79.7 [facility] [address] [place] [id number] [place] [address] 64793- 0451 Nov, [facility] [address] [place] [id number] [place] [address] 56969- 4125 Nov, [facility] [address] [place] [id number] [place] [address] 88242- 2110 Nov, 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 and Polyneuropathy G62.9 [facility] [address] [place] [id number] [place] [address] 03022- 1300 Nov, [facility] [address] [address]- 1559 Nov, [facility] [address] [facility] [id number] [place] [address] 55644- 1436 Oct, Diabetes type 2, uncontrolled E11.65 [facility] [address] [place] [id number] [place] [address] 45758- 3280 Oct, Diabetes type 2, uncontrolled E11.65 ; Polyneuropathy G62.9 and Pain in right wrist M25.531 [facility] [address] [facility] [id number] [place] [address], [place] [address]- 9345 Oct, [facility] [address] [place] [id number] [place] [address] 34661- 5070 Oct, Pain in left shoulder M25.512 [facility] [address] [place] [id number] [place] [address] 20330- 1452 Sep, [facility] [address] [place] [id number] [place] [address] 37589- 5142 Sep, Pain in left shoulder M25.512 [facility] [address] [place] [id number] [place] [address] 74020- 1356 Sep, [facility] [id number] [place] [address] 97830- 4329 August, Pain in left shoulder M25.512 [facility] [address] [place] [address] 60348- 9375 Jul, [facility] [address] [address]- 1891 Jul, [facility] [address] [place] [id number] [place] [address] 32708- 0876 Jul, Pain in left shoulder M25.512 [facility] [address] [address]- 7316 Jun, [facility] [address] [place] [id number] [address]- 4580 17 Jun, 2016 [facility] [address] [place] [id number] [place] [address] 69259- 5362 Jun, Diabetes type 2, uncontrolled E11.65 ; Fibromyalgia M79.7 and Arthritis M19.90 [facility] [address] [place] [id number] [place] [address] 21158- 5116 14 Jun, 2016 Pain in left shoulder M25.512 [facility] [address] [place] [id number] [place] [address] 59326- 2499 May, [facility] [address] [place] [id number] [place] [address] 27897- 2396 May, Diabetes type 2, controlled E11.9 [facility] [address] [place] [id number] [place] [address] 33511- 3466 May, [facility] [address] [place] [id number] [place] [address] 12169- 6312 May, Uncontrolled type 2 diabetes mellitus without complication, without long-term current use of insulin E11.65 [facility] [address] [place] [address] 25698- 2652 May, Pain in left shoulder M25.512 [facility] [address] [place] [address] 05566- 0421 May, Diabetes type 2, controlled E11.9 and Uncontrolled type 2 diabetes mellitus without complication, without long-term current use of insulin E11.65 [facility] [address] [address]- 9139 Apr, [facility] [id number] [place] [address] 74840- 1196 Apr, [facility] [address] [address]- 8326 Mar, [facility] [address] [place] [address] 97451- 0755 Mar, [facility] [address] [id number] [place] [address]- 5535 Mar, [facility] [address] [id number] [place] [address]- 2386 Feb, [facility] [address] [id number] [place] [id number] Feb, Dental examination Z01.20 [facility] [address] [id number] [place] [address]- 3075 Jan, [facility] [address] [id number] [place] [address]- 6203 Dec, [facility] [address] [id number] [place] [address]- 1878 Dec, [facility] [address] [id number] [place] [address]- 7487 Dec, [facility] [address] [id number] [place] [address]- 1389 Dec, Diabetes type 2, controlled E11.9 [facility] [address] [id number] [place] [address]- 0922 Nov, [facility] [address] [id number] [place] [address]- 9181 Nov, [facility] [address] [id number] [place] [address]- 4946 Nov, [facility] [address] [id number] [place] [address]- 3435 Nov, [facility] [address] [id number] [place] [address]- 7838 Oct, [facility] [address] [id number] [place] [address]- 2874 Oct, [facility] [address] [id number] [place] [address]- 1572 Oct, [facility] [address] [address]- 5297 Sep, [facility] [address] [place] [id number] [place] [address] 82681- 0211 Sep, Diabetes type 2, controlled E11.9 [facility] [address] [place] [id number] [place] [address] 89832- 9744 Sep, Diabetes type 2, controlled E11.9 [facility] [address] [place] [id number] [place] [address] 31256- 2119 August, [facility] [address] [place] [id number] [place] [address] 20220- 9141 August, [facility] [address] [place] [id number] [place] [address] 25057- 9023 August, Type 2 diabetes mellitus without complication E11.9 and Pain in left shoulder M25.512 [facility] [address] [place] [id number] [place] [address] 00163- 1565 Jul, [facility] [address] [place] [id number] [place] [address] 78087- 3589 Jul, Diabetes type 2, controlled E11.9 and Hypertension, benign I10 [facility] [address] [address]- 9311 Jun, [facility] [address] [address]- 7089 Jun, [facility] [address] [place] [address] 63745- 2540 Jun, Diabetes 250.00 [facility] [address] [address]- 9504 Jun, [facility] [address] [place] [address] 06895- 2536 May, Diabetes type 2, uncontrolled E11.65 [facility] [address] [place] [address] 40290- 2542 May, [facility] [address] [place] [id number] [place] [address] 05851- 2598 Apr, Type 2 diabetes mellitus without complication E11.9 [facility] [address] [place] [id number] [place] [address] 01074- 2380 Apr, Encounter for immunization Z23 [facility] [address] [place] [id number] [place] [address] 59975- 0128 Apr, [facility] [address] 64857- 2169 Mar, [facility] [address] [place] [id number] [place] [address] 86786- 6323 Mar, [facility] [address] 55677- 3961 Mar, [facility] [address] 33120- 8957 Feb, [facility] [address] [place] [id number] [place] [address] 58415- 6983 Jan, [facility] [address] [place] [id number] [place] [address] 01749- 7032 Jan, [facility] [address] [place] [id number] [place] [address] 61824- 1211 Jan, [facility] [address] [place] [id number] [place] [address] 72245- 6613 Dec, Diabetes 250.00 and COPD (chronic obstructive pulmonary disease) 496 [facility] [address] [place] [id number] [place] [address] 11838- 9506 Dec, [facility] [address] [place] [id number] [place] [address] 31350- 7125 Dec, [facility] [address] [place] [id number] [place] [address] 16053- 4668 Nov, [facility] [address] 09904- 2681 Oct, Diabetes 250.00 [facility] [address] [address]- 1694 Sep, [facility] [address] [address]- 7241 Sep, [facility] [address] [address]- 6215 Sep, [facility] [id number] [place] [address] 86357- 3967 Sep, Diabetes 250.00 [facility] [address] [place] [id number] [place] [address] 82444- 3813 Sep, [facility] [address] [place] [id number] [place] [address] 03636- 1747 Sep, [facility] [address] [place] [id number] [place] [address] 63802- 5600 August, Hypertension, essential, benign 401.1 ; Coronary atherosclerosis of [place]all coronary artery 414.01 and Diabetic neuropathy associated with type 2 diabetes mellitus 250.60 [facility] [address] [address]- 2461 Jul, [facility] [address] [address]- 6090 Jul, [facility] [address] [address]- 3555 Jul, [facility] [address] [address]- 4132 Jun, [facility] [address] [address]- 1053 Jun, [facility] [address] [address]- 8339 Jun, [facility] [address] [address]- 9301 Jun, [facility] [place] [facility] [address] [id number] [place] [address]- 0076 Jun, [facility] [place] [facility] [address] [id number] [place] [address]- 0462 May, 2014 [facility] [place] [facility] [address] [id number] [place] [address]- 4499 May, 2014 [facility] [place] [facility] [address] [id number] [place] [address]- 5713 May, 2014 [facility] [place] [facility] [address] [id number] [place] [address]- 7575 May, 2014 [facility] [place] [facility] [address] [id number] [place] [address]- 7499 May, 2014 [facility] [place] [facility] [address] [facility] [id number] [place] [address]- 9340 May, 2014 [facility] [place] [facility] [address] [facility] [id number] [place] [address]- 1022 May, [facility] [place] [facility] [address] [facility] [id number] [place] [address]- 8817 Apr, [facility] [place] [facility] [address] [facility] [id number] [place] [address]- 5822 Apr, [facility] [place] [facility] [address] [facility] [id number] [address]- 8970 Apr, [facility] [place] [facility] [address] [id number] [place] [address]- 4385 Apr, [facility] [place] [facility] [address] [id number] [place] [address]- 1730 Mar, [facility] [place] [facility] [address] [id number] [place] [address]- 0401 Mar, [facility] [place] [facility] [address] [facility] [id number] [place] [address]- 3241 Mar, [facility] [place] [facility] [address] [id number] [place] [address]- 8214 Mar, [facility] [place] [facility] [address] [id number] [place] [address]- 6287 Feb, [facility] [place] [facility] [address] [id number] [place] [address]- 1027 Feb, [facility] [place] [facility] [address] [facility] [id number] [place] [address]- 6508 Feb, [facility] [place] [facility] [address] [id number] [place] [address]- 1752 Feb, [facility] [place] [facility] [address] [id number] [place] [address]- 3453 Feb, [facility] [place] [facility] [address] [id number] [place] [address]- 1118 Feb, [facility] [place] [facility] [address] [facility] [id number] [place] [address]- 6437 Feb, [facility] [place] [facility] [address] [id number] [place] [address]- 0322 Jan, [facility] [place] [facility] [address] [facility] [id number] [place] [address]- 2050 Jan, [facility] [place] [facility] [address] [facility] [id number] [place] [address]- 5596 Dec, [facility] [place] [facility] [address] [id number] [place] [address]- 3209 Dec, [facility] [place] [facility] [address] [id number] [place] [address]- 2481 10 Dec, 2013 [facility] [place] [facility] [address] [id number] [place] [address]- 4628 10 Dec, 2013 [facility] [place] [facility] [address] [facility] [id number] [place] [address]- 4986 Dec, [facility] [place] [facility] [address] [facility] [id number] [place] [address]- 6666 04 Dec, 2013 [facility] [place] [facility] [address] [id number] [place] [address]- 2546 Dec, [facility] [place] [facility] [address] [id number] [place] [address]- 1616 Dec, [facility] [place] [facility] [address] [id number] [place] [address]- 2546 Nov, [facility] [place] [facility] [address] [id number] [place] [address]- 1053 Nov, [facility] [place] [facility] [address] [id number] [place] [address]- 2546 Nov, [facility] [place] [facility] [address] [id number] [place] [address]- 0838 Nov, [facility] [place] [facility] [address] [id number] [place] [address]- 3415 Oct, [facility] [place] [facility] [address] [id number] [place] [address]- 2866 Oct, [facility] [place] [facility] [address] [id number] [place] [address]- 8094 Oct, [facility] [place] [facility] [address] [id number] [place] [address] Oct, [facility] [place] [facility] [address] [id number] [place] [address] Oct, [facility] [place] [facility] [address] [id number] [place] [address] Oct, [facility] [place] [facility] [address] [id number] [place] [address] Oct, [facility] [place] [facility] [address] [id number] [place] [address] Oct, [facility] [place] [facility] [address] [id number] [place] [address] Sep, [facility] [place] [facility] [address] [id number] [place] [address] Sep, [facility] [place] [facility] [address] [id number] [place] [address] August, [facility] [place] [facility] [address] [id number] [place] [address] August, [facility] [place] [facility] [address] [id number] [place] [address] Jul, [facility] [place] [facility] [address] [id number] [place] [address] Jul, [facility] [place] [facility] [address] [id number] [place] [address] Jul, [facility] [place] [facility] [address] [id number] [place] [address] Jul, [facility] [place] [facility] [address] [id number] [place] [address] Jul, [facility] [place] [facility] [address] [id number] [place] [address] Jul, [facility] [place] [facility] [address] [id number] [place] [address] Jul, [facility] [place] [facility] [address] [id number] [place] [address] Jul, [facility] [place] [facility] [address] [id number] [place] [address] Jun, [facility] [place] [facility] [address] [id number] [address] Jun, [facility] [place] [facility] [address] [id number] [place] [address] Jun, [facility] [place] [facility] [address] [id number] [place] [address] Jun, [facility] [place] [facility] [address] [id number] [place] [address] May, [facility] [facility] [address] [id number] [place] [address] 18 May, 2013 [facility] [address] [id number] [place] [address] Apr, [facility] [facility] [address] [id number] [place] [address] Apr, [facility] [address] [id number] [place] [address] Mar, [facility] [place] [facility] [address] [id number] [place] [address] Mar, [facility] [address] [id number] [place] [address] 2014 Mar, [facility] [address] [id number] [place] [address] Mar, [facility] [address] [id number] [place] [address] Mar, [facility] [address] [id number] [place] [address] Mar, [facility] [place] [address] [id number] [place] [address] Feb, [facility] [address] [id number] [place] [address] Feb, [facility] [facility] [address] [id number] [place] [address] Feb, [facility] [facility] [address] [id number] [place] [address] Feb, [facility] [place] [facility] [address] [id number] [place] [address] Feb, [facility] [facility] [address] [id number] [place] [address] Feb, [facility] [facility] [address] [address] [id number] [place] [address] Feb, [facility] [place] [facility] [address] [id number] [place] [address] 12 Feb, 2013 [facility] [place] [facility] [address] [id number] [place] [address] 15 Jan, 2013 [facility] [place] [facility] [address] [id number] [place] [address] 15 Jan, 2013 [facility] [place] [facility] [address] [id number] [place] [address] 14 Jan, 2013 [facility] [place] [facility] [address] [id number] [place] [address] 14 Jan, 2013 [facility] [place] [facility] [address] [id number] [place] [address] 18 Dec, 2012 [facility] [place] [facility] [address] [id number] [place] [address] 39[address] 13 Dec, 2012 [facility] [place] [facility] [address] [id number] [place] [address] 2012 [facility] [place] [facility] [address] [id number] [place] [address] Nov, [facility] [place] [facility] [address] [id number] [place] [address] Nov, [facility] [place] [facility] [address] [id number] [place] [address] 1283 16 Oct, 2012 [facility] [place] [facility] [address] [id number] [place] [address] 478[address] Oct, [facility] [place] [facility] [address] [id number] [place] [address] 2011 Oct, [facility] [place] [facility] [address] [id number] [place] [address] Sep, [facility] [place] [facility] [address] [id number] [place] [address] 97[address] Sep, [facility] [place] [facility] [address] [id number] [place] [address] Sep, [facility] [address] [id number] [place] [address] 8983 Sep, [facility] [place] [facility] [address] [id number] [place] [address] Sep, [facility] [address] [id number] [place] [address] 5946 Sep, [facility] [place] [facility] [address] [id number] [place] [address] August, [facility] [address] [id number] [place] [address] August, [facility] [place] [facility] [address] [id number] [place] [address] 8627 August, [facility] [address] [id number] [place] [address] 6086 August, [facility] [place] [facility] [address] [id number] [place] [address] 56[address] August, [facility] [address] [id number] [place] [address] 0[address] August, [facility] [place] [facility] [address] [id number] [place] [address] 2154 August, [facility] [address] [id number] [place] [address] 2518 Jul, [facility] [place] [facility] [address] [id number] [place] [address] 5910 Jul, [facility] [place] [facility] [address] [id number] [place] [address] Jun, [facility] [place] [facility] [address] [id number] [place] [address] Jun, [facility] [place] [facility] [address] [id number] [place] [address] 2479 May, [facility] [place] [facility] [address] [id number] [place] [address]112 May, [facility] [place] [facility] [address] [id number] [place] [address] 5674 Apr, [facility] [place] [facility] [address] [id number] [place] [address] 9957 Mar, [facility] [place] [facility] [address] [id number] [place] [address] 68[address] Mar, [facility] [place] [facility] [address] [id number] [place] [address] 1037 Mar, [facility] [place] [facility] [address] [id number] [place] [address] 6[address] Mar, [facility] [place] [facility] [address] [id number] [place] [address] Mar, [facility] [place] [facility] [address] [id number] [place] [address] 8090 Mar, [facility] [place] [facility] [address] [id number] [place] [address] 9225 Feb, [facility] [place] [facility] [address] [id number] [place] [address] 26[address] Feb, [facility] [place] [facility] [address] [id number] [place] [address] 2885 Feb, [facility] [place] [facility] [address] [id number] [place] [address]25 Feb, [facility] [place] [facility] [address] [id number] [place] [address] 1519 Feb, [facility] [place] [facility] [address] [id number] [place] [address] 3096 Feb, [facility] [place] [facility] [address] [id number] [place] [address] 1479 Feb, [facility] [place] [facility] [address] [id number] [place] [address] 5168 Feb, [facility] [place] [facility] [address] [id number] [place] [address] 2247 Jan, [facility] [place] [facility] [address] [id number] [place] [address] 8094 Jan, [facility] [place] [facility] [address] [id number] [place] [address] 6748 28 Dec, 2011 [facility] [place] [facility] [address] [id number] [place] [address] 8698 Dec, [facility] [place] [facility] [address] [id number] [place] [address] 0949 Dec, [facility] [place] [facility] [address] [id number] [place] [address] 1516 Dec, [facility] [place] [facility] [address] [id number] [place] [address] 3021 Dec, [facility] [place] [facility] [address] [id number] [place] [address] 9574 Nov, [facility] [place] [facility] [address] [id number] [place] [address] 7126 Oct, [facility] [place] [facility] [address] [facility] [id number] [address] Oct, [facility] [place] [facility] [address] [id number] [place] [address] 8[address] Sep, [facility] [place] [facility] [address] [id number] [place] [address] 2872 Sep, [facility] [place] [facility] [address] [id number] [place] [address]- 9816 Sep, [facility] [place] [facility] [address] [id number] [address] 37[address] Sep, [facility] [place] [facility] [address] [facility] [id number] [place] [address] 6783 Sep, [facility] [place] [facility] [address] [id number] [place] [address]- 2309 Sep, [facility] [address] [id number] [place] [address] 9658 Sep, [facility] [place] [facility] [address] [id number] [place] [address] 2466 Sep, [facility] [place] [facility] [address] [id number] [place] [address]- 0928 August, [facility] [place] [facility] [address] [id number] [place] [address] 3529 August, [facility] [place] [facility] [address] [id number] [place] [address] 0115 August, [facility] [place] [facility] [address] [id number] [place] [address]- 2093 Jul, [facility] [place] [facility] [address] [id number] [place] [address] 3342 Jul, [facility] [place] [facility] [address] [id number] [place] [address]- 8035 Jun, [facility] [place] [facility] [address] [id number] [place] [address]- 2367 Jun, [facility] [place] [facility] [address] [id number] [place] [address]- 2156 Jun, [facility] [place] [facility] [address] [id number] [place] [address]- 8949 Jun, [facility] [place] [facility] [address] [id number] [place] [address]- 8495 May, [facility] [place] [facility] [address] [id number] [place] [address]- 7484 May, [facility] [place] [facility] [address] [id number] [place] [address]- 2546 Apr, [facility] [place] [facility] [address] [id number] [place] [address]- 8879 Apr, [facility] [place] [facility] [address] [id number] [place] [address] 2500 Apr, [facility] [place] [facility] [address] [id number] [place] [address]- 2980 Mar, [facility] [place] [facility] [address] [id number] [place] [address]- 9385 Mar, [facility] [place] [facility] [address] [id number] [place] [address]- 7713 Mar, [facility] [address] [id number] [place] [address]- 1796 Feb, [facility] [place] [facility] [address] [id number] [place] [address]- 7755 Feb, [facility] [address] [id number] [place] [address]- 9310 Feb, [facility] [address] [id number] [place] [address]- 9289 Feb, [facility] [place] [facility] [address] [id number] [place] [address]- 3386 Jan, [facility] [place] [facility] [address] [id number] [place] [address]- 5479 Jan, [facility] [place] [facility] [address] [id number] [place] [address]- 3930 Jan, [facility] [place] [facility] [address] [id number] [place] [address]- 2955 16 Dec, 2010 [facility] [place] [facility] [address] [id number] [place] [address]- 0225 Oct, [facility] [place] [facility] [address] [id number] [place] [address]- 3901 Mar, [facility] [place] [facility] [address] [id number] [place] [address]- 3559 Feb, [facility] [place] [facility] [address] [id number] [place] [address]- 6216 Feb, [facility] [address] [id number] [address]279 May, [facility] [id number] [address] Apr, [facility] [id number] [address]- 4[address] Mar, [facility] [id number] [address]- 3385 Jan, [facility] [id number] [address]- [address]279 Oct, [facility] [id number] [address] 7800 Jul, [facility] [id number] [address] 8463 Mar, [facility] [id number] [address]- 3[address] Feb, [facility] [id number] [address] Jan, IMMUNIZATIONS No Known Immunizations SOCIAL HISTORY [...]
--- OUTSIDE RECORDS SUMMARY | 2018-07-05 13:00 | XMS REPORT ---
Author Author KATHYA FISCHER Organization [facility] Address [address] [place] [address] Care Team Providers Care Fruit Stuffer Name Role Phone KATHYA FISCHER Unavailable PROBLEMS Type Condition ICD9-CM Code TOL42-UX Code Onset Dates Condition Status SNOMED Code Problem Hypertension, benign I10 Active 50056394 Problem Obstructive sleep apnea G47.33 Active 66585845 Problem Controlled type 2 diabetes mellitus without complication, without long -term current use of insulin E11.9 Active 755110940 Problem 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 Active 10524353 Problem Arthritis M19.90 Active 4518346 Problem Uncontrolled type 2 diabetes mellitus without complication, without long-term current use of insulin E11.65 Active 854451103 Problem Polyneuropathy G62.9 Active 09118748 Problem Fibromyalgia M79.7 Active 727354708 ALLERGIES No Information ENCOUNTERS Encounter Location Date Diagnosis [facility] [id number] [place] [address] 25800- 6828 Sep, Uncontrolled type 2 diabetes mellitus without complication, without long-term current use of insulin E11.65 [facility] [id number] [place] [address] 37315- 8865 Sep, [facility] [id number] [place] [address] 33891- 0780 Sep, [facility] [id number] [place] [address] 44354- 0824 Sep, Uncontrolled type 2 diabetes mellitus without complication, without long-term current use of insulin E11.65 and Fibromyalgia M79.7 [facility] [id number] [place] [address] 93938- 1521 August, [facility] [id number] [place] [address] 65799- 9312 August, [facility] [id number] [place] [address] 22535- 9252 August, [facility] [address] 55609- 2543 August, Fibromyalgia M79.7 [facility] [id number] [place] [address] 97985- 4444 Jul, Hypertension, benign I10 [facility] [address] 68770- 3095 Jul, Fibromyalgia M79.7 [facility] [address] 91955- 3133 Jul, [facility] [address] 73271- 8353 Jun, [facility] [address] 93295- 1543 Jun, Hypertension, benign I10 ; Arthritis M19.90 ; shelter current use 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 Z79.891 and Uncontrolled type 2 diabetes mellitus without complication, without long-term current use of insulin E11.65 [facility] [id number] [place] [address] 30636 -9097 Jun, Acute nasopharyngitis J00 and BMI 50.0-59.9, adult Z68.43 [facility] [id number] [place] [address] 32472- 6680 Jun, Fibromyalgia M79.7 [facility] [id number] [place] [address] 96748- 1293 May, [facility] [address] 58262- 2417 May, Fibromyalgia M79.7 [facility] [id number] [place] [address] 37779- 4176 Apr, Fibromyalgia M79.7 [facility] [address] 53333 2546 Apr, [facility] [address] [place] [address] 59042 2546 Apr, [facility] [address] [place] [address] 45405 2546 Apr, Arthritis M19.90 [facility] [address] [place] [address] 70184 2546 Apr, Arthritis M19.90 [facility] [id number] [place] [address] 74772 2546 Apr, Arthritis M19.90 and Controlled type 2 diabetes mellitus without complication, without long-term current use of insulin E11.9 [facility] [id number] [place] [address] 88815 2546 Apr, [facility] [id number] [place] [address] 20469 2546 Apr, Fibromyalgia M79.7 [facility] [address] [place] [address] 45711 2549 Mar, [facility] [id number] [place] [address] 99432 2546 Mar, [facility] [address] [place] [address] 00547 2548 Mar, Fibromyalgia M79.7 [facility] [address] [place] [address] 82679 2546 Feb, [facility] [address] [address] 2546 Feb, [facility] [id number] [place] [address] 78759 2546 Feb, [facility] [address] [address] 2546 Feb, Fibromyalgia M79.7 [facility] [id number] [place] [address] 47319- 1314 Feb, Diabetes type 2, uncontrolled E11.65 and Encounter for immunization Z23 [facility] [id number] [place] [address] 05636- 2866 Jan, [facility] [id number] [place] [address] 04093- 5424 Jan, Fibromyalgia M79.7 [facility] [id number] [place] [address] 93973- 4894 Dec, [facility] [id number] [place] [address] 05021- 0997 Dec, Fibromyalgia M79.7 [facility] [id number] [place] [address] 49488- 3808 Nov, [facility] [id number] [place] [address] 18535- 7216 Nov, [facility] [id number] [place] [address] 24664- 5152 Nov, 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 and Polyneuropathy G62.9 [facility] [id number] [place] [address] 38720- 3582 Nov, [facility] [id number] [place] [address] 37391- 0399 Nov, [facility] [id number] [place] [address] 70085- 4862 Oct, Diabetes type 2, uncontrolled E11.65 [facility] [id number] [place] [address] 46003- 9904 Oct, Diabetes type 2, uncontrolled E11.65 ; Polyneuropathy G62.9 and Pain in right wrist M25.531 [facility] [id number] [place] [address] 64670- 3453 Oct, [facility] [id number] [place] [address] 95530- 0629 Oct, Pain in left shoulder M25.512 [facility] [address] [address]- 1836 Sep, [facility] [id number] [place] [address] 95600 2546 Sep, Pain in left shoulder M25.512 [facility] [id number] [address] 2546 Sep, [facility] [id number] [place] [address] 00565- 8070 August, Pain in left shoulder M25.512 [facility] [id number] [place] [address] 20381- 5326 Jul, [facility] [id number] [place] [address] 26429- 0916 Jul, [facility] [id number] [place] [address] 14354- 2063 Jul, Pain in left shoulder M25.512 [facility] [address] [address]- 3876 Jun, [facility] [id number] [place] [address] 80348- 9396 Jun, [facility] [address] [address]- 2136 Jun, Diabetes type 2, uncontrolled E11.65 ; Fibromyalgia M79.7 and Arthritis M19.90 [facility] [address] [address]- 8836 Jun, Pain in left shoulder M25.512 [facility] [id number] [place] [address] 35487 2546 May, [facility] [id number] [address] 2546 May, Diabetes type 2, controlled E11.9 [facility] [address] [address]- 7053 17 May, 2016 [facility] [address] [place] [address] 97848- 9808 May, Uncontrolled type 2 diabetes mellitus without complication, without long-term current use of insulin E11.65 [facility] [address] [address]- 6466 15 May, 2016 Pain in left shoulder M25.512 [facility] [id number] [place] [address] 20782- 8138 03 May, 2016 Diabetes type 2, controlled E11.9 and Uncontrolled type 2 diabetes mellitus without complication, without long-term current use of insulin E11.65 [facility] [id number] [place] [address] 64386- 4239 Apr, [facility] [id number] [place] [address] 15158- 1638 Apr, [facility] [id number] [place] [address] 98419- 9729 Mar, [facility] [id number] [place] [address] 95241- 7992 Mar, [facility] [id number] [place] [address] 28642- 2491 Mar, [facility] [address] [address]- 5584 Feb, [facility] [address] [place] [address] [id number] Feb, Dental examination Z01.20 [facility] [address] [place] [address] 344088- 2769 Jan, [facility] [id number] [place] [address] 85507- 8869 14 Dec, 2015 [facility] [address] [address]- 5559 Dec, [facility] [address] [id number] [place] [address]- 8685 Dec, [facility] [address] [id number] [place] [address]- 4881 Dec, Diabetes type 2, controlled E11.9 [facility] [address] [id number] [place] [address]- 2616 Nov, [facility] [address] [id number] [place] [address]- 7800 Nov, [facility] [address] [id number] [place] [address]- 3467 Nov, [facility] [address] [id number] [place] [address]- 0750 Nov, [facility] [address] [facility] [id number] [place] [address]- 7147 Oct, [facility] [address] [facility] [id number] [place] [address]- 9164 Oct, [facility] [address] [id number] [place] [address]- 6257 Oct, [facility] [address] [facility] [id number] [place] [address]- 6993 Sep, [facility] [address] [facility] [id number] [place] [address]- 7035 Sep, Diabetes type 2, controlled E11.9 [facility] [address] [id number] [place] [address]- 8903 Sep, Diabetes type 2, controlled E11.9 [facility] [address] [facility] [id number] [place] [address]- 1584 August, [facility] [address] [facility] [id number] [place] [address]- 7646 August, [facility] [address] [facility] [id number] [place] [address]- 9073 August, Type 2 diabetes mellitus without complication E11.9 and Pain in left shoulder M25.512 [facility] [id number] [place] [address] 71732- 1708 Jul, [facility] [id number] [place] [address] 53532- 2713 Jul, Diabetes type 2, controlled E11.9 and Hypertension, benign I10 [facility] [address] 35310- 1611 Jun, [facility] [id number] [place] [address] 85130- 0143 Jun, [facility] [address] 37270- 8607 Jun, Diabetes 250.00 [facility] [address] 18516- 6958 Jun, [facility] [id number] [place] [address] 07616- 5799 May, Diabetes type 2, uncontrolled E11.65 [facility] [id number] [place] [address] 18159- 1184 May, [facility] [id number] [place] [address] 54453- 7080 Apr, Type 2 diabetes mellitus without complication E11.9 [facility] [id number] [place] [address] 57795- 0510 Apr, Encounter for immunization Z23 [facility] [id number] [place] [address] 07077- 2021 Apr, [facility] [address] 48963- 5232 Mar, [facility] [id number] [place] [address] 44765- 5803 Mar, [facility] [address] 37332- 1619 Mar, [facility] [address] [address]- 5487 Feb, [facility] [address] [address]- 9336 Jan, [facility] [address] [address]- 3147 Jan, [facility] [id number] [place] [address] 67974- 6899 Jan, [facility] [address] [address]- 6314 Dec, Diabetes 250.00 and COPD (chronic obstructive pulmonary disease) 496 [facility] [address] [address]- 4388 Dec, [facility] [id number] [place] [address] 41467- 7909 Dec, [facility] [address] [address]- 6357 Nov, [facility] [id number] [place] [address] 34334- 5686 Oct, Diabetes 250.00 [facility] [address], [place] [address]- 9603 Sep, [facility] [address], [place] [address]- 6501 Sep, [facility] [address], [place] [address]- 6473 Sep, [facility] [address] [address]- 2480 Sep, Diabetes 250.00 [facility] [address] [address]- 8791 Sep, [facility] [id number] [place] [address] 84660- 0502 Sep, [facility] [address] [facility] [id number] [address]- 7324 August, Hypertension, essential, benign 401.1 ; Coronary atherosclerosis of [place] coronary artery 414.01 and Diabetic neuropathy associated with type 2 diabetes mellitus 250.60 [facility] [address] [facility] [id number] [place] 9637 Jul, [facility] [address] [facility] [id number], [place] [address]- 4178 Jul, [facility] [address], [place] [address]- 7666 Jul, [facility] [address], [place] [address]- 4562 Jun, [facility] [address], [place] [address]- 1356 Jun, [facility] [id number] [address]- 5099 Jun, [facility] [address], [place] [address]- 8188 Jun, [facility] [address], [place] [address]- 4682 Jun, [facility] [address], [place] [address]- 6084 May, [facility] [address], [place] [address]- 6743 May, [facility] [id number] 6297 May, [facility] [address] [address]- 5451 May, [facility] [id number] [address]- 5536 May, [facility] [place] [facility] [address] [id number] [place] [address]- 2445 May, [facility] [place] [facility] [address] [id number] [place] [address]- 5432 May, [facility] [place] [facility] [address] [id number] [place] [address]- 5883 Apr, [facility] [place] [facility] [address] [id number] [place] [address]- 3669 Apr, [facility] [place] [facility] [address] [id number] [place] [address]- 1246 Apr, [facility] [place] [facility] [address] [id number] [place] [address]- 4753 Apr, [facility] [place] [facility] [address] [id number] [place] [address]- 3189 Mar, [facility] [place] [facility] [address] [id number] [place] [address]- 0144 Mar, [facility] [place] [facility] [address] [id number] [place] [address]- 7232 Mar, [facility] [place] [facility] [address] [id number] [place] [address]- 3106 Mar, [facility] [place] [facility] [address] [id number] [place] [address]- 6802 Feb, [facility] [place] [facility] [address] [id number] [place] [address]- 0232 Feb, [facility] [place] [facility] [address] [id number] [place] [address]- 8742 Feb, [facility] [place] [facility] [address] [id number] [place] 4101 Feb, [facility] [place] [facility] [address] [id number] [place] [address]- 2093 Feb, [facility] [place] [facility] [address] [id number] [place] [address]- 2673 Feb, [facility] [place] [facility] [address] [id number] [place] [address]- 5367 Feb, [facility] [place] [facility] [address] [id number] [place] [address]- 8371 Jan, [facility] [place] [facility] [address] [id number] [place] [address]- 5053 Jan, [facility] [place] [facility] [address] [id number] [place] [address]- 1609 Dec, [facility] [place] [facility] [address] [id number] [place] [address]- 3263 Dec, [facility] [place] [facility] [address] [id number] [place] [address]- 0958 Dec, [facility] [place] [facility] [address] [id number] [place] [address]- 5100 Dec, [facility] [place] [facility] [address] [id number] [place] [address]- 2952 Dec, [facility] [place] [facility] [address] [id number] [place] [address]- 9702 Dec, [facility] [place] [facility] [address] [id number] [place] [address]- 0972 Dec, [facility] [place] [facility] [address] [id number], [place] [address]- 3316 Dec, [facility] [place] [facility] [address] [id number], [place] [address]- 5646 Nov, [facility] [place] [facility] [address] [id number] [place] [address]- 2802 Nov, [facility] [place] [facility] [address] [id number] [place] [address]- 7090 Nov, [facility] [place] [facility] [address] [id number] [place] [address]- 0322 Nov, [facility] [place] [facility] [address] [id number] [place] [address]- 5034 14 Oct, 2013 [facility] [place] [facility] [address] [id number] [place] [address]- 9391 Oct, 2013 [facility] [place] [facility] [address] [id number] [place] [address]- 2392 Oct, 2013 [facility] [place] [facility] [address] [id number] [place] [address]- 9215 Oct, 2013 [facility] [place] [facility] [address] [id number] [place] [address]- 0557 Oct, 2013 [facility] [place] [facility] [address] [id number] [place] [address]- 6783 Oct, [facility] [place] [facility] [address] [id number] [place] [address]- 2524 Oct, [facility] [place] [facility] [address] [id number] [place] [address]- 1426 Oct, [facility] [place] [facility] [address] [id number] [place] [address]- 2324 Sep, [facility] [place] [facility] [address] [id number] [place] [address]- 4515 Sep, [facility] [place] [facility] [address] [id number] [place] [address]- 0072 August, [facility] [place] [facility] [address] [id number] [place] [address]- 4323 August, [facility] [place] [facility] [address] [id number] [place] [address]- 4108 Jul, [facility] [place] [facility] [address] [id number] [place] [address]- 8051 Jul, [facility] [place] [facility] [address] [id number] [place] [address]- 1639 Jul, [facility] [place] [facility] [address] [id number] [place] [address]- 4290 Jul, [facility] [place] [facility] [address] [id number] [place] [address]- 4167 Jul, [facility] [place] [facility] [address] [id number] [place] [address]- 9369 Jul, [facility] [place] [facility] [address] [id number] [place] [address]- 4083 Jul, [facility] [place] [facility] [address] [id number] [place] [address]- 8924 Jul, [facility] [address] [id number] [place] [address] Jun, [facility] [place] [facility] [address] [id number] [place] [address] Jun, [facility] [address] [id number] [place] [address] Jun, [facility] [place] [facility] [address] [id number] [place] [address] Jun, [facility] [place] [facility] [address] [id number] [place] [address] May, [facility] [place] [facility] [address] [id number] [place] [address] May, [facility] [place] [facility] [address] [id number] [place] [address] Apr, [facility] [place] [facility] [address] [id number] [place] [address] Apr, [facility] [place] [facility] [address] [id number] [place] [address] Mar, [facility] [place] [facility] [address] [id number] [place] [address] Mar, [facility] [place] [facility] [address] [id number] [place] [address] Mar, [facility] [place] [facility] [address] [id number], [place] [address] 18 Mar, 2013 [facility] [place] [facility] [address] [id number] [place] [address] 18 Mar, 2013 [facility] [place] [facility] [address] [id number] [place] [address] 18 Mar, 2013 [facility] [place] [facility] [address] [id number] [place] [address] Feb, [facility] [place] [facility] [address] [id number] [place] [address] Feb, [facility] [place] [facility] [address] [id number] [place] [address] Feb, [facility] [place] [facility] [address] [id number] [place] [address] Feb, [facility] [place] [facility] [address] [facility] [id number] [place] [address] Feb, [facility] [place] [facility] [address] [id number] [place] [address] 18 Feb, 2013 [facility] [place] [facility] [address] [facility] [id number] [place] [address] Feb, [facility] [place] [facility] [address] [facility] [id number], [place] [address] Feb, [facility] [place] [facility] [address] [id number], [place] [address] 15 Jan, 2013 [facility] [place] [facility] [address] [id number], [place] [address] 15 Jan, 2013 [facility] [place] [facility] [address] [id number], [place] [address] 14 Jan, 2013 [facility] [place] [facility] [address] [id number], [place] [address] 14 Jan, 2013 [facility] [place] [facility] [address] [facility] [id number], [place] [address] 18 Dec, 2012 [facility] [place] [facility] [address] [id number] [place] [address] Dec, [facility] [place] [facility] [address] [id number] [place] [address] Dec, [facility] [place] [facility] [address] [id number] [place] [address] Nov, [facility] [place] [facility] [address] [id number] [place] [address] Nov, [facility] [place] [facility] [address] [id number] [place] [address] Oct, [facility] [place] [facility] [address] [id number] [place] [address] Oct, [facility] [place] [facility] [address] [id number] [place] [address] Oct, [facility] [place] [facility] [address] [id number] [place] [address] Sep, [facility] [place] [facility] [address] [id number] [place] [address] Sep, [facility] [place] [facility] [address] [id number] [place] [address] Sep, [facility] [place] [facility] [address] [id number] [place] [address] Sep, [facility] [place] [facility] [address] [id number] [place] [address] Sep, [facility] [place] [facility] [address] [id number] [place] [address] Sep, [facility] [place] [facility] [address] [id number] [place] [address] August, [facility] [place] [facility] [address] [id number] [place] [address] August, [facility] [place] [facility] [address] [id number] [place] [address] August, [facility] [address] [id number] [place] [address] August, [facility] [address] [id number] [place] [address] August, [facility] [address] [id number] [place] [address] August, [facility] [address] [id number] [place] [address] August, [facility] [address] [id number] [place] [address] Jul, [facility] [address] [id number] [place] [address] Jul, [facility] [address] [id number] [place] [address] Jun, [facility] [address] [id number] [place] [address] Jun, [facility] [address] [id number] [place] [address] May, [facility] [address] [id number] [place] [address] May, [facility] [address] [id number] [place] [address] Apr, [facility] [place] [facility] [address] [id number] [place] [address] Mar, [facility] [place] [facility] [address] [id number] [place] [address] Mar, [facility] [place] [facility] [address] [id number] [place] [address] Mar, [facility] [place] [facility] [address] [id number] [place] Mar, [facility] [place] [facility] [address] [id number] [place] [address] Mar, [facility] [place] [facility] [address] [id number] [place] [address] Mar, [facility] [place] [facility] [address] [id number] [place] [address] Feb, [facility] [place] [facility] [address] [id number] [place] [address] Feb, [facility] [place] [facility] [address] [id number] [place] [address] Feb, [facility] [place] [facility] [address] [id number] [place] [address] Feb, [facility] [place] [facility] [address] [id number] [place] [address] Feb, [facility] [place] [facility] [address] [facility] [id number] [place] [address] Feb, [facility] [place] [facility] [address] [id number] [place] [address] Feb, [facility] [place] [facility] [address] [id number] [place] [address] Feb, [facility] [place] [facility] [address] [facility] [id number] [place] [address] Jan, [facility] [place] [facility] [address] [id number] [place] [address] Jan, [facility] [place] [facility] [address] [id number] [place] [address] 28 Dec, 2011 [facility] [place] [facility] [address] [id number] [place] [address] 19 Dec, 2011 [facility] [place] [facility] [address] [facility] [id number] [place] [address] 18 Dec, 2011 [facility] [place] [facility] [address] [id number] [place] [address] Dec, [facility] [place] [facility] [address] [id number] [place] [address] Dec, [facility] [place] [facility] [address] [id number] [place] [address] Nov, [facility] [place] [facility] [address] [id number] [place] [address] Oct, [facility] [place] [facility] [address] [id number] [place] [address] Oct, [facility] [place] [facility] [address] [id number] [place] [address] Sep, [facility] [place] [facility] [address] [id number] [place] [address] Sep, [facility] [place] [facility] [address] [id number] [place] [address] 99[address] Sep, [facility] [place] [facility] [address] [id number] [place] [address] 6[address] Sep, [facility] [place] [facility] [address] [id number] [place] [address] Sep, [facility] [place] [facility] [address] [id number] [place] [address] 74[address] Sep, [facility] [place] [facility] [address] [id number] [place] [address] Sep, [facility] [place] [facility] [address] [id number] [place] [address] 26[address] Sep, [facility] [place] [facility] [address] [id number] [place] [address] 29[address] August, [facility] [place] [facility] [address] [id number] [place] [address] 41[address] August, [facility] [place] [facility] [address] [id number] [place] [address] August, [facility] [place] [facility] [address] [id number] [place] [address] Jul, [facility] [address] [id number] [place] [address] 6183 Jul, [facility] [place] [facility] [address] [id number] [place] [address]- [address] Jun, [facility] [place] [facility] [address] [id number] [place] [address] 5546 Jun, [facility] [place] [facility] [address] [id number] [place] [address] 5105 Jun, [facility] [place] [facility] [address] [id number] [place] [address] 7857 Jun, [facility] [place] [facility] [address] [id number] [place] [address] 45[address] May, [facility] [address] [facility] [id number] [place] [address]- [address] May, [facility] [place] [facility] [address] [id number] [place] [address] 2913 Apr, [facility] [address] [facility] [id number] [place] [address]- 8166 Apr, [facility] [place] [facility] [address] [facility] [id number] [place] [address]- 5[address] Apr, [facility] [address] [id number] [place] [address] 408[address] Mar, [facility] [place] [facility] [address] [id number] [place] [address] 9[address] Mar, [facility] [place] [facility] [address] [id number] [place] [address]- 0331 Mar, [facility] [place] [facility] [address] [id number] [place] [address]- 0899 Feb, [facility] [place] [facility] [address] [facility] [id number] [place] [address]- 5530 Feb, [facility] [place] [facility] [address] [id number] [place] [address]- 3081 09 Feb, 2011 [facility] [place] [facility] [address] [id number] [place] [address]- 3[address] 09 Feb, 2011 [facility] [place] [facility] [address] [id number] [place] [address]- 1014 Jan, [facility] [place] [facility] [address] [id number] [place] [address]- 7775 14 Jan, 2011 [facility] [place] [facility] [address] [id number] [place] [address]- 3926 Jan, [facility] [place] [facility] [address] [id number] [place] [address]- 6398 16 Dec, 2010 [facility] [place] [facility] [address] [id number] [place] [address]- 6288 Oct, [facility] [place] [facility] [address] [id number] [place] [address]- 7041 24 Mar, 2010 [facility] [place] [facility] [address] [id number] [place] [address]- 3596 Feb, [facility] [place] [facility] [address] [id number] [place] [address]- 6311 Feb, [facility] [place] [facility] [address] [facility] [id number] [place] [address]- 7484 16 May, 2009 [facility] [place] [facility] [address] [id number] [place] [address]- 2326 Apr, [facility] [place] [facility] [address] [id number] [place] [address]- 0733 29 Mar, 2009 [facility] [place] [facility] [address] [id number] [place] [address]- 9860 30 Jan, 2009 [facility] [place] [facility] [address] [id number] [place] [address] 2546 15 Oct, 2008 [facility] [place] [facility] [address] [id number] [place] [address] Jul, [facility] [address] [facility] [id number] [place] [address]- [address] Mar, [facility] [address] [facility] [id number], [place] [address] Feb, [facility] [address] [facility] [id number] [place] [address]- [address] Jan, IMMUNIZATIONS No Known Immunizations SOCIAL HISTORY Never Assessed REASON FOR VISIT Controlled Med Refill 04/27 PLAN OF CARE VITAL SIGNS MEDICATIONS Medication Instructions Dosage Frequency Start Date End Date Duration Status MS Contin 15 mg Orally every 12 hrs 1 tablet 12h Apr, 28 days Active RESULTS No Results PROCEDURES [...]
--- NOTE | 2018-07-05 13:17 | Diagnostic Imaging Report ---
Indication: Shortness of air. Time of exam: 12:47 PM Correlation is made with prior study from 10/01/2017. The heart is enlarged. There appears to be some atelectasis or infiltrate in the right base. Left lung is clear. Appears to be a small amount of pleural fluid on the right. No pneumothorax. Impression: Cardiomegaly with right basilar infiltrate and small right effusion. Dictated by: Dictated on workstation # [id number]
[2018-07-05 13:21] LABS: EOSINOPHILS % (MANUAL) 1 %; LYMPHOCYTES % (MANUAL) 11 %; MONOCYTES % (MANUAL) 8 %; NEUTROPHILS % (MANUAL) 80 %; RBC MORPH NORMAL
[2018-07-05 13:35] LABS: INR 1.5 (0.8-1.4); PROTHROMBIN TIME PATIENT 18.2 SEC (12.2-14.7)
[2018-07-05 13:37] LABS: FIBRIN DEGRADATION PRODUCTS 2.37 UG/ML (0.00-0.49)
--- NOTE | 2018-07-05 14:55 | NUR ---
Initial visit: pt states he is [employer] and has affiliated with [facility] [employer] [facility], however does not attend because he has fibromyalgia and it hurts when people touch him. Pt welcomed Brick Offbearer visit and expressed appreciation for emotional support.
--- NOTE | 2018-07-05 15:20 | NUR ---
DRESSINGS ON LOWER EXT REMOVED FOR ULTRA SOUND
--- NOTE | 2018-07-05 15:40 | Diagnostic Imaging Report ---
PROCEDURE: US Venous Lower Ext Capo. TECHNIQUE: Multiple Real-time grayscale images were obtained over the lower extremities in various projections bilaterally. Additional duplex Doppler and color Doppler images were also obtained. INDICATION: Shortness of breath. FINDINGS: There is no evidence of a right or left lower extremity DVT. Both lower extremity deep venous systems demonstrate normal compressibility with normal response to augmentation and Valsalva. No fluid collection or mass is seen. IMPRESSION: No evidence of right or left lower extremity DVT. Dictated by: Dictated on workstation # [id number]
[2018-07-05] MEDS ORDERED: cefTRIAXone FOR IV USE 1,000 MG in WATER (STERILE) FOR INJECTION 10 ML IV ONE (16:15)
[2018-07-05 17:07] LABS: BILIRUBIN,URINE NEGATIVE (NEGATIVE); CLARITY,URINE SLIGHTLY CLOUDY; COLOR,URINE YELLOW; GLUCOSE, URINE (UA) NEGATIVE (NEGATIVE); KETONES,URINE NEGATIVE (NEGATIVE); LEUKOCYTE ESTERASE ,URINE NEGATIVE (NEGATIVE); NITRITE,URINE NEGATIVE (NEGATIVE); PH,URINE 7 (5-9); PROTEIN,URINE 1+ (NEGATIVE); UROBILINOGEN,URINE 1 MG/DL (NORMAL)
[2018-07-05 17:13] LABS: BACTERIA,URINE NEGATIVE /HPF; HYALINE CASTS, URINE RARE /LPF; SQUAMOUS EPITHELIAL CELL,UR RARE /HPF
[2018-07-05 18:00] VITALS: BP 130/72
[2018-07-05] MEDS ORDERED: CATHETER FLUSH 10 ML SYR IV PRN (18:15)
[2018-07-05] MEDS ORDERED: DOXE100C4 PO (18:28)
[2018-07-05] MEDS ORDERED: FINA5TAB6 PO (18:28)
[2018-07-05] MEDS ORDERED: POTA10TA36 PO (18:28)
[2018-07-05] MEDS ORDERED: VITA1TAB33 PO (18:28)
[2018-07-05] MEDS ORDERED: TIZA4TAB3 PO (18:28)
[2018-07-05] MEDS: ENOXAPARIN 300 MG/3 ML (LOVENOX) MULTI-DOSE VIAL SQ SCH (18:29)
--- NOTE | 2018-07-05 18:29 | NUR ---
KEISHA BECERRIL admitted to room 426-1, with an admitting diagnosis of pneumonia, on 07/05/18 from ED via [facility] , accompanied by staff.KEISHA BECERRIL introduced to surroundings, call light, bed controls, phone, TV, temperature control, lights, meal times, smoking policy, visitor policy, side rail policy, bathrooms and showers. Patient Rights given to patient in the handbook. KEISHA BECERRIL verbalizes understanding that [facility] is not responsible for the loss or damage to any personal effects or valuables that are kept in the patients posession during their hospitalization. The following Patient Care Plans and discharge were discussed with the patient. KEISHA BECERRIL verbalizes understanding of Interdisciplinary Patient Education.
[2018-07-05] MEDS ORDERED: DIPH25CA6 PO (18:33)
[2018-07-05] MEDS ORDERED: PATIENT MAY USE OWN MEDS, ALL MC SCH (18:45)
[2018-07-05] MEDS: FUROSEMIDE 40 MG/4 ML INJ (LASIX) IVP SCH (18:57)
[2018-07-05 19:12] VITALS: BP 155/77
[2018-07-05 20:00] VITALS: BP 153/89
[2018-07-05] MEDS: SYMBICORT 160/4.5 INHALER INH SCH (20:46)
[2018-07-05] MEDS: LYRICA 200 MG CAPSULE PO SCH (20:48)
[2018-07-05] MEDS: DOXEPIN 100 MG PO SCH (20:49)
[2018-07-05] MEDS: diphenhydrAMINE 25 MG TAB (BENADRYL) PO SCH (20:50)
[2018-07-05] MEDS: ATORVASTATIN 40 MG (LIPITOR) TABLET PO SCH (20:51)
[2018-07-05] MEDS: METOPROLOL TARTRATE 100 MG TAB PO SCH (20:52)
[2018-07-05] MEDS ORDERED: ATORVASTATIN 40 MG (LIPITOR) TABLET PO SCH (21:00)
[2018-07-05] MEDS ORDERED: NON-FORMULARY MEDICATION 1 EA EA (Metoprolol Tartrate 100 MG) PO SCH (21:00)
[2018-07-05] MEDS ORDERED: DOXEPIN HCL 200 MG PO SCH (21:00)
[2018-07-05] MEDS ORDERED: RT-ALBUTEROL/IPRATROPIUM 3 ML (DUONEB) VIAL ONE (21:48)
[2018-07-05] MEDS: RT-ALBUTEROL/IPRATROPIUM 3 ML (DUONEB) VIAL INH SCH (21:50)
[2018-07-05] MEDS: CATHETER FLUSH 10 ML SYR IV SCH (22:17)
[2018-07-05 23:34] VITALS: BP 158/99
[2018-07-06] VITALS (7 sets, daily range): BP systolic 15–194; BP diastolic 75–108
[2018-07-06] MEDS: RT-ALBUTEROL/IPRATROPIUM 3 ML (DUONEB) VIAL INH SCH ×6 (03:08→23:07)
[2018-07-06 05:50] LABS: BASOPHILS % (AUTO) 1 % (0-10); EOSINOPHILS # (AUTO) 0.1 10^3/uL (0.0-0.3); EOSINOPHILS % (AUTO) 2 % (0-10); HEMATOCRIT 43 % (40-54); HEMOGLOBIN 13.5 G/DL (13.3-17.7); LYMPHOCYTES # (AUTO) 1.2 X 10^3 (1.0-4.0); LYMPHOCYTES % (AUTO) 19 % (12-44); MEAN CORPUSCULAR HEMOGLOBIN 27 PG (25-34); MEAN CORPUSCULAR HGB CONC 32 G/DL (32-36); MEAN CORPUSCULAR VOLUME 85 FL (80-99); MEAN PLATELET VOLUME 10.2 FL (7.4-10.4); MONOCYTES # (AUTO) 0.8 X 10^3 (0.0-1.0); MONOCYTES % (AUTO) 12 % (0-12); NEUTROPHILS # (AUTO) 4.2 X 10^3 (1.8-7.8); NEUTROPHILS % (AUTO) 67 % (42-75); PLATELET COUNT 161 10^3/uL (130-400); RED CELL DISTRIBUTION WIDTH 16.9 % (10.0-14.5); WHITE BLOOD COUNT 6.3 10^3/uL (4.3-11.0)
[2018-07-06 06:11] LABS: ALANINE AMINOTRANSFERASE 19 U/L (0-55); ALKALINE PHOSPHATASE 119 U/L (40-136); BILIRUBIN,TOTAL 1.2 MG/DL (0.1-1.0); BUN/CREATININE RATIO 15; CALCIUM 9.9 MG/DL (8.5-10.1); CARBON DIOXIDE 27 MMOL/L (21-32); CHLORIDE 99 MMOL/L (98-107); CREATININE SERUM 1.04 MG/DL (0.60-1.30); GFR ESTIMATED > 60; GLUCOSE 104 MG/DL (70-105); POTASSIUM 3.5 MMOL/L (3.6-5.0); SODIUM 136 MMOL/L (135-145)
[2018-07-06] MEDS: inSUlin ASPART (NovoLOG) 1 UNIT/0.01 ML (CHARGE PER UNIT) SC SCH ×4 (06:27→21:50)
[2018-07-06] MEDS: CATHETER FLUSH 10 ML SYR IV SCH ×3 (06:30→22:08)
[2018-07-06] MEDS: ENOXAPARIN 300 MG/3 ML (LOVENOX) MULTI-DOSE VIAL SQ SCH (06:32)
--- NOTE | 2018-07-06 07:05 | Pulmonary Consultation ---
History of Present Illness History of Present Illness Date of Consultation 07/06/18 07:00 Time Seen by Provider: 07:01 Date of Admission History of Present Illness 62yo with hx of bilateral venous stasis ulcers and has home health presented to ED secondary to worsening weaknes, SOB, and fevers (101) that started over the weekend. Sp02 was 90 on RA. Allergies and Home Medications Allergies Coded Allergies: Sulfa (Sulfonamide Antibiotics) (Unverified Allergy, Unknown, 03/21/14) latex (Unverified Allergy, Unknown, 03/21/14) raspberry (Unverified Allergy, Unknown, 03/21/14) zinc oxide (Unverified Allergy, Unknown, 03/21/14) Uncoded Allergies: ARTIFICIAL SWEETNERS (Allergy, Unknown, 03/21/14) Home Medications Acetaminophen 500 Mg Tablet, 1,000 MG PO TID, (Reported) Aspirin 325 Mg Tablet.dr, 325 MG PO DAILY, (Reported) Atorvastatin Calcium 40 Mg Tablet, 40 MG PO HS, (Reported) B Complex with Vitamin C 1 Each Tablet, 1 EACH PO DAILY Prescribed by: HORACE CASAS on 07/05/181827 Budesonide/Formoterol Fumarate 10.2 Gm Hfa.aer.ad, 2 PUFF INH BID, (Reported) Diphenhydramine HCl 25 Mg Capsule, 25 MG PO HS Prescribed by: HORACE CASAS on 07/05/181832 Doxepin HCl 100 Mg Capsule, 200 MG PO HS, (Reported) Duloxetine HCl 60 Mg Capsule.dr, 60 MG PO DAILY, (Reported) Finasteride 5 Mg Tablet, 5 MG PO DAILY, (Reported) Furosemide 20 Mg Tablet, 20 MG PO TID, (Reported) Glipizide 10 Mg Tablet, 20 MG PO BID, (Reported) TAKES 2 (10MG) TABLETS Hydrochlorothiazide 25 Mg Tablet, 25 MG PO DAILY, (Reported) Insulin Glargine,Hum.rec.anlog 100 Unit/1 Ml Insuln.pen, 80 UNITS SC HS, ( Reported) Lidocaine 1 Each Adh..patch, 2-3 PATCH TOP DAILY, (Reported) Metoprolol Tartrate 100 Mg Tablet, 100 MG PO BID, (Reported) [place]-3S/Dha/Epa/Fish Oil/D3 1 Each Capsule, 1 CAP PO BID, (Reported) Polyethylene Glycol 3350 17 Gm Powd.pack, 17 GM PO DAILY Prescribed by: JOHN BUCIO on 10/05/17 1426 Pregabalin 200 Mg Capsule, 200 MG PO TID, (Reported) Tizanidine HCl 4 Mg Tablet, 6 MG PO TID PRN for BREAKTHROUGH PAIN, (Reported) Past Rzkbers-Oddvgc-Beetzu Hx Patient Social History Alcohol Use: Denies Use Recreational Drug Use: No Smoking Status: Never a Smoker Type Used: Cigarettes 2nd Hand Smoke Exposure: No Recent Foreign Travel: No Contact w/Someone Who Travel: No Recent Infectious Disease Expo: No Recent Hopitalizations: No Physical Abuse: No Sexual Abuse: No Immunizations Up To Date Tetanus Booster (TDap): Unknown Date of Pneumonia Vaccine: Apr 20, 2016 Date of Influenza Vaccine: Jan 18, 2018 Seasonal Allergies Seasonal Allergies: No Past Medical History Surgeries: No Respiratory: Yes Sleep Apnea, COPD Currently Using CPAP: Yes Cardiac: Yes High Cholesterol, Hypertension Neurological: Yes Neuropathy Genitourinary: No Gastrointestinal: No Musculoskeletal: Yes (CHRONIC GENERALIZED PAIN ) Arthritis, Fibromyalgia Endocrine: Yes (MORBID OBESITY) Diabetes, Insulin dep HEENT: No Cancer: No Psychosocial: No Integumentary: Yes (CHRONIC LEG WOUNDS) Blood Disorders: No Family Medical History Heart Disease, Cancer, CAD Over 55 Years Old, Diabetes, Hypertension, Stroke, Vascular Disease Review of Systems Time Seen by Provider: 14:15 Sepsis Event Evaluation Height, Weight, BMI Height: 5'10.00" Weight: 388lbs. 8.0oz. 176.397197pd; 56.3 BMI Method:Stated Exam Exam Vital Signs Date Time Temp Pulse Resp B/P (MAP) Pulse Ox O2 Delivery O2 Flow Rate FiO2 07/06/18 04:00 97.1 77 18 15/87 (63) 93 Nasal Cannula 3.00 07/06/18 03:09 93 Nasal Cannula 3.00 07/06/18 01:01 73 07/06/18 00:00 97.6 76 16 158/99 (118) 96 Nasal Cannula 3.00 07/05/18 23:34 97.6 76 16 158/99 (118) 96 Nasal Cannula 3.00 07/05/18 21:51 Nasal Cannula 3.00 07/05/18 21:43 97 Nasal Cannula 2.00 07/05/18 21:40 83 95 32 07/05/18 21:34 Nasal Cannula 3.00 07/05/18 20:32 98 Nasal Cannula 3.00 07/05/18 20:00 97.8 76 20 153/89 (110) 96 Nasal Cannula 3.00 07/05/18 19:12 97.4 87 20 155/77 (103) 98 Nasal Cannula 3.00 07/05/18 19:04 92 Nasal Cannula 3.00 07/05/18 19:00 89 07/05/18 18:00 97.1 75 22 130/72 (91) 97 Nasal Cannula 3.00 07/05/18 16:55 78 20 160/88 (112) 92 Nasal Cannula 3.00 07/05/18 12:45 94 Nasal Cannula 2.00 07/05/18 12:05 99.8 89 28 167/97 (120) 88 Room Air 3.00 I & O 07/06/18 07:00 Intake Total 1150 ml Balance 1150 ml Height & Weight Height: 5'10.00" Weight: 388lbs. 8.0oz. 176.975556yh; 56.3 BMI Method:Stated General Appearance: Anxious, Mild Distress HEENT: PERRL/EOMI, Normal ENT Inspection, Pharynx Normal Neck: Full Range of Motion, Non Tender, Supple Respiratory: Chest Non Tender, No Accessory Muscle Use, No Respiratory Distress , Crackles, Decreased Breath Sounds Cardiovascular: Regular Rate, Rhythm, No Edema Capillary Refill: Less Than 3 Seconds Gastrointestinal: normal bowel sounds, non tender, soft, no organomegaly, no pulsatile mass Extremity: Normal Capillary Refill Neurologic/Psychiatric: Alert Skin: Normal Color, Warm/Dry Results Lab Laboratory Tests 07/05/18 12:15 07/06/18 05:40 Assessment/Plan Assessment/Plan Dyspnea with hypoxia -SVNs -Oxygen -Check ABG Pulmonary edema - r/o PNA -Continue Lasix, add K+ -Reyes cultures pending -Pt received 1 dose of Rocephin in ED -Influenza is negative -Check Echocardiogram Hypoxia -oxygen -Pt may need home oxygen Diastolic CHF on last echo -repeat echo -cardiology following Hypokalemia -replace Elevated Ddimer - doubt PE - check CTA of chest today -Dopplers LE are negative TAMIKA HILARIO DO Jul 06, 2018 07:05
[2018-07-06] MEDS ORDERED: KCL 20 MEQ TAB (K-DUR) PO ONE (07:15)
--- NOTE | 2018-07-06 07:50 | Consultation-Cardiology ---
HPI-Cardiology Cardiology Consultation Date of Consultation 07/06/18 Date of Admission Time Seen by Provider: 07:45 Indication: shortness of breath, fever HPI 62 years old gentleman with history of sleep apnea, using C Pap, morbid obesity. Admitted for persistent fever of 101, has been having dyspnea at rest and with exertion which has been worsening. Denied any chest pain. Denied any palpitation, has chronic venous stasis ulcers and chronic edema that has been treated at wound care. Home Medications & Allergies Allergies: Coded Allergies: Sulfa (Sulfonamide Antibiotics) (Unverified Allergy, Unknown, 03/21/14) latex (Unverified Allergy, Unknown, 03/21/14) raspberry (Unverified Allergy, Unknown, 03/21/14) zinc oxide (Unverified Allergy, Unknown, 03/21/14) Uncoded Allergies: ARTIFICIAL SWEETNERS (Allergy, Unknown, 03/21/14) Home Medication List Reviewed: Yes SFV-Rqbfas-Hatazl Hx Patient Social History Marital Status: Alcohol Use: Denies Use Recreational Drug Use: No Smoking Status: Never a Smoker Type Used: Cigarettes 2nd Hand Smoke Exposure: No Recent Foreign Travel: No Recent Infectious Disease Expo: No Recent Hopitalizations: No Immunizations Up To Date Tetanus Booster (TDap): Unknown Date of Pneumonia Vaccine: Apr 20, 2016 Date of Influenza Vaccine: Jan 18, 2018 Past Medical History past medical history described below Family Medical History Significant Family History: Heart Disease, Cancer, CAD Over 55 Years Old, Diabetes, Hypertension, Stroke, Vascular Disease Family Medical Hx noncontributory to his current condition Review of Systems Constitutional: see HPI, malaise, weakness EENTM: see HPI, no symptoms reported Respiratory: see HPI, cough, dyspnea on exertion, orthopnea, short of breath Cardiovascular: see HPI; No chest pain; edema; No Hx of Intervention; palpitations; No syncope, No vascular heart diseas, No other Gastrointestinal: no symptoms reported, see HPI Genitourinary: no symptoms reported, see HPI Musculoskeletal: see HPI, back pain, joint pain, muscle pain Skin: see HPI, lesions Psychiatric/Neurological: No Symptoms Reported, See HPI Reviewed Test Results Reviewed Test Results Lab Laboratory Tests Test 07/05/18 12:15 07/05/18 12:45 07/05/18 13:14 07/05/18 16:58 Range/Units White Blood Count 10.1 4.3-11.0 10^3/uL Red Blood Count 5.17 4.35-5.85 10^6/uL Hemoglobin 14.0 13.3-17.7 G/DL Hematocrit 44 40-54 % Mean Corpuscular Volume 85 80-99 FL Mean Corpuscular Hemoglobin 27 25-34 PG Mean Corpuscular Hemoglobin Concent 32 32-36 G/DL Red Cell Distribution Width 17.1 H 10.0-14.5 % Platelet Count 195 130-400 10^3/uL Mean Platelet Volume 10.4 7.4-10.4 FL Neutrophils (%) (Auto) 85 H 42-75 % Lymphocytes (%) (Auto) 8 L 12-44 % Monocytes (%) (Auto) 6 0-12 % Eosinophils (%) (Auto) 1 0-10 % Basophils (%) (Auto) 0 0-10 % Neutrophils # (Auto) 8.6 H 1.8-7.8 X 10^3 Lymphocytes # (Auto) 0.8 L 1.0-4.0 X 10^3 Monocytes # (Auto) 0.6 0.0-1.0 X 10^3 Eosinophils # (Auto) 0.1 0.0-0.3 10^3/uL Basophils # (Auto) 0.0 0.0-0.1 10^3/uL Neutrophils % (Manual) 80 % Lymphocytes % (Manual) 11 % Monocytes % (Manual) 8 % Eosinophils % (Manual) 1 % Band Neutrophils % Blood Morphology Comment NORMAL Sodium Level 137 135-145 MMOL/L Potassium Level 4.3 3.6-5.0 MMOL/L Chloride Level 100 98-107 MMOL/L Carbon Dioxide Level 27 21-32 MMOL/L Anion Gap 10 5-14 MMOL/L Blood Urea Nitrogen 17 7-18 MG/DL Creatinine 1.08 0.60-1.30 MG/DL Estimat Glomerular Filtration Rate > 60 BUN/Creatinine Ratio 16 Glucose Level 177 H 70-105 MG/DL Calcium Level 9.6 8.5-10.1 MG/DL Corrected Calcium 9.8 8.5-10.1 MG/DL Total Bilirubin 1.2 H 0.1-1.0 MG/DL Aspartate Amino Transf (AST/SGOT) 21 5-34 U/L Alanine Aminotransferase (ALT/SGPT) 16 0-55 U/L Alkaline Phosphatase 117 40-136 U/L B-Type Natriuretic Peptide 148.7 H <100.0 PG/ML Total Protein 6.7 6.4-8.2 GM/DL Albumin 3.8 3.2-4.5 GM/DL Smear Scan Lactic Acid Level 1.38 0.50-2.00 MMOL/L Prothrombin Time 18.2 H 12.2-14.7 SEC INR Comment 1.5 H 0.8-1.4 Activated Partial Thromboplast Time 31 24-35 SEC D-Dimer 2.37 H 0.00-0.49 UG/ML Urine Color YELLOW Urine Clarity SLIGHTLY CLOUDY Urine pH 7 5-9 Urine Specific [place] 1.005 L 1.016-1.022 Urine Protein 1+ H NEGATIVE Urine Glucose (UA) NEGATIVE NEGATIVE Urine Ketones NEGATIVE NEGATIVE Urine Nitrite NEGATIVE NEGATIVE Urine Bilirubin NEGATIVE NEGATIVE Urine Urobilinogen 1 NORMAL MG/DL Urine Leukocyte Esterase NEGATIVE NEGATIVE Urine RBC (Auto) 2+ H NEGATIVE Urine RBC NONE /HPF Urine WBC NONE /HPF Urine Squamous Epithelial Cells RARE /HPF Urine Crystals NONE /LPF Urine Bacteria NEGATIVE /HPF Urine Casts PRESENT /LPF Urine Hyaline Casts RARE /LPF Urine Mucus NEGATIVE /LPF Urine Culture Indicated NO Test 07/06/18 05:40 Range/Units White Blood Count 6.3 4.3-11.0 10^3/uL Red Blood Count 5.04 4.35-5.85 10^6/uL Hemoglobin 13.5 13.3-17.7 G/DL Hematocrit 43 40-54 % Mean Corpuscular Volume 85 80-99 FL Mean Corpuscular Hemoglobin 27 25-34 PG Mean Corpuscular Hemoglobin Concent 32 32-36 G/DL Red Cell Distribution Width 16.9 H 10.0-14.5 % Platelet Count 161 130-400 10^3/uL Mean Platelet Volume 10.2 7.4-10.4 FL Neutrophils (%) (Auto) 67 42-75 % Lymphocytes (%) (Auto) 19 12-44 % Monocytes (%) (Auto) 12 0-12 % Eosinophils (%) (Auto) 2 0-10 % Basophils (%) (Auto) 1 0-10 % Neutrophils # (Auto) 4.2 1.8-7.8 X 10^3 Lymphocytes # (Auto) 1.2 1.0-4.0 X 10^3 Monocytes # (Auto) 0.8 0.0-1.0 X 10^3 Eosinophils # (Auto) 0.1 0.0-0.3 10^3/uL Basophils # (Auto) 0.0 0.0-0.1 10^3/uL Sodium Level 136 135-145 MMOL/L Potassium Level 3.5 L 3.6-5.0 MMOL/L Chloride Level 99 98-107 MMOL/L Carbon Dioxide Level 27 21-32 MMOL/L Anion Gap 10 5-14 MMOL/L Blood Urea Nitrogen 16 7-18 MG/DL Creatinine 1.04 0.60-1.30 MG/DL Estimat Glomerular Filtration Rate > 60 BUN/Creatinine Ratio 15 Glucose Level 104 70-105 MG/DL Calcium Level 9.9 8.5-10.1 MG/DL Corrected Calcium 9.9 8.5-10.1 MG/DL Total Bilirubin 1.2 H 0.1-1.0 MG/DL Aspartate Amino Transf (AST/SGOT) 25 5-34 U/L Alanine Aminotransferase (ALT/SGPT) 19 0-55 U/L Alkaline Phosphatase 119 40-136 U/L Total Protein 7.0 6.4-8.2 GM/DL Albumin 4.0 3.2-4.5 GM/DL Physical Exam Vital Signs Vital Signs - First Documented 07/05/18 07/05/18 12:05 21:40 Temp 99.8 Pulse 89 Resp 28 B/P (MAP) 167/97 (120) Pulse Ox 88 O2 Delivery Room Air O2 Flow Rate 3.00 FiO2 32 Capillary Refill : Less Than 3 Seconds Height, Weight, BMI Height: 5'10.00" Weight: 388lbs. 8.0oz. 176.960876me; 56.3 BMI Method:Stated General Appearance: WD/WN, Mild Distress Eyes: Bilateral Eye Normal Inspection, Bilateral Eye PERRL, Bilateral Eye EOMI HEENT: PERRL/EOMI, TMs Normal, Normal ENT Inspection, Pharynx Normal Neck: Full Range of Motion, Normal Inspection, Non Tender, Supple, Carotid Bruit Respiratory: Chest Non Tender, Lungs Clear, Normal Breath Sounds, No Accessory Muscle Use, No Respiratory Distress Cardiovascular: Regular Rate, Rhythm, No Gallop, No Murmur, Normal Peripheral Pulses Gastrointestinal: Normal Bowel Sounds, No Organomegaly, No Pulsatile Mass, Non Tender, Soft Back: Normal Inspection, No CVA Tenderness, No Vertebral Tenderness Extremity: Normal Capillary Refill, Normal Inspection, Normal Range of Motion, Non Tender, No Calf Tenderness, No Pedal Edema Neurologic/Psychiatric: Alert, Oriented x3, No Motor/Sensory Deficits, Normal Mood/Affect Skin: Normal Color, Warm/Dry Lymphatic: No Adenopathy A/P-Cardiology Admission Diagnosis Fever Shortness of breath Hypertension COPD Assessment/Plan Fever, shortness of breath, workup in progress, scheduled for CT of the chest, received Lovenox and antibiotics. Managed by Dr. Perez Obstructive sleep apnea, maintained on C Pap, may require BiPAP. Managed by Dr. Perez Chronic edema, chronic venous stasis changes, workup in the past showed normal left ventricular systolic function with ejection fraction 70 percent on the MPI by Dr. Becker in July 2017. Last echo was done in 2015, planning to repeat 2- D echocardiogram and continue to monitor Cardiac catheterization done in 2009 and reported to have normal coronaries Morbid obesity. Generalized weakness and loss of energy. Clinical Quality Measures DVT/VTE Risk/Contraindication: Risk Factor Score Per Nursin RFS Level Per Nursing on Admit: 4+=Very High CHARAN STANLEY MD Jul 06, 2018 07:50
[2018-07-06] MEDS: SYMBICORT 160/4.5 INHALER INH SCH ×2 (07:59→23:07)
[2018-07-06 08:01] LABS: ABG BASE EXCESS 6.2 MMOL/L (-2.5-2.5); ABG OXYGEN SATURATION 96 % (94-100); ABG PCO2 50 MMHG (35-45); ABG PH 7.41 (7.37-7.43); ABG PO2 85 MMHG (79-93); ABG TCO2 32.4 MMOL/L (21.0-31.0)
[2018-07-06 08:05] LABS: ALLENS TEST POSITIVE; INSPIRED O2 3 L; PATIENT TEMP 98.8; VENTILATOR NO
[2018-07-06] MEDS: FUROSEMIDE 40 MG/4 ML INJ (LASIX) IVP SCH (08:33)
[2018-07-06] MEDS: LYRICA 200 MG CAPSULE PO SCH ×4 (08:40→22:08)
[2018-07-06] MEDS: DULOXETINE 60 MG CAPSULE PO SCH (08:41)
[2018-07-06] MEDS: ASPIRIN E.C. 325 MG (ECOTRIN) TABLET PO SCH (08:41)
[2018-07-06] MEDS: METOPROLOL TARTRATE 100 MG TAB PO SCH ×2 (08:42→21:01)
[2018-07-06] MEDS: FINASTERIDE (PROSCAR) 5 MG TAB PO SCH (08:43)
[2018-07-06] MEDS: ACETAMINOPHEN 325 MG TABLET PO PRN (08:50)
[2018-07-06] MEDS ORDERED: INSU100I34 SC (08:55)
--- NOTE | 2018-07-06 08:56 | NUR ---
MED REC COMPLETED BY NURSE, I REVIEWED THE EXT MED HX AND SPOKE WITH THE PATIENT ABOUT THE BASAGLAR THAT WAS NOT ON THE MED LIST, HE VERIFIED HE DOES USE THIS. I ADDED IT AT THIS TIME. HE ALSO STATES HE IS STILL USING THE LIDOCAINE PATCHES. I GLANCED AT THE BOTTLES IT LOCK UP AND THERE ARE RECENTLY FILLED BOTTLES FOR LIPITOR AND DULOXETINE THAT MAY NOT BE REFLECTED CORRECTLY ON THE EXT MED HX.
[2018-07-06] MEDS ORDERED: NON-FORMULARY MEDICATION 1 EA EA (Duloxetine HCl 60 MG) PO SCH (09:00)
--- NOTE | 2018-07-06 11:40 | History & Physicial (CHS) ---
SALVATORE MCKENZIE MEDICAL STUDENT 07/06/18 1140: HPI History of Present Illness: Patient is a 62 yo male with PMH VENKATA, COPD, HTN, DM, and fibromyalgia that presents with symptoms of shortness of breath, fever, and weakness. The patient starting having severe constipation and diarrhea on Thursday. He woke up on Thursday feeling pretty normal. On Thursday he woke up feeling fatigued with a reported home fever of 101 F. He was feeling fatigued and called his home health care to come out and see him. His home health aid told the patient that he needed to go to the hospital so the patient presented to the ED. He currently has not been on home oxygen. The patient has not been admitted to the hospital recently and has not noticed and major changes in edema. He has been dealing with SOB 2/2 COPD from multiple years of smoking cigars. He really started to notice his breathing getting worse in the last few months when he started taking insulin for his diabetes. He reports a weight gain around 50 pounds with insulin and thinks he has mechanically been struggling with breathing 2/2 his weight. Source: patient Exam Limitations: no limitations Date seen by provider: Jul 06, 2018 Time Seen by Provider: 10:40 Attending Physician Wesly Seo MD PCP Bharat Aguilera MD Consult Date of Admission Jul 05, 2018 at 15:50 Home Medications Home Medications Reviewed patient Home Medication Reconciliation performed by pharmacy medication reconciliations wheel alignment technician and/or nursing. Patients Allergies have been reviewed. Allergies Coded Allergies: Sulfa (Sulfonamide Antibiotics) (Unverified Allergy, Unknown, 03/21/14) latex (Unverified Allergy, Unknown, 03/21/14) raspberry (Unverified Allergy, Unknown, 03/21/14) zinc oxide (Unverified Allergy, Unknown, 03/21/14) Uncoded Allergies: ARTIFICIAL SWEETNERS (Allergy, Unknown, 03/21/14) YVY-Wmnyrn-Elhjvn Hx Patient Social History Marrital Status: Alcohol Use: Denies Use Recreational Drug Use: No Smoking Status: Former Smoker Type Used: Cigars, Cigarettes 2nd Hand Smoke Exposure: No Recent Foreign Travel: No Contact w/other who traveled: No Recent Hopitalizations: No Recent Infectious Disease Expo: No Immunizations Up To Date Tetanus Booster (TDap): Unknown Date of Pneumonia Vaccine: Apr 20, 2016 Date of Influenza Vaccine: Jan 18, 2018 Past Medical History Obstructive Sleep Apnea COPD HTN Type II Diabetes Fibromyalgia Arthritis Polyneuropathy Polyarthropathy BPH Morbid Obesity, BMI >50 Venous Insufficiency Mortons Neuroma Surgical Hx: Tonsillectomy Family Medical History Significant Family History: Heart Disease, Cancer, CAD Over 55 Years Old, Diabetes, Hypertension, Stroke, Vascular Disease Review of Systems ([facility]) Constitutional: weakness EENTM: see HPI Respiratory: No no symptoms reported, No see HPI, No cough; dyspnea on exertion ; No hemoptysis, No orthopnea, No phlegm; short of breath; No stridor, No wheezing, No other Cardiovascular: No no symptoms reported, No see HPI, No chest pain; edema; No Hx of Intervention, No palpitations, No syncope, No vascular heart diseas, No other Musculoskeletal: no symptoms reported Psychiatric/Neurological: No Symptoms Reported All Other Systems Reviewed Negative Unless Noted: Yes Reviewed Test Results Reviewed Test Results Lab Laboratory Tests Test 07/05/18 12:15 07/05/18 12:45 07/05/18 13:14 07/05/18 16:58 Range/Units White Blood Count 10.1 4.3-11.0 10^3/uL Red Blood Count 5.17 4.35-5.85 10^6/uL Hemoglobin 14.0 13.3-17.7 G/DL Hematocrit 44 40-54 % Mean Corpuscular Volume 85 80-99 FL Mean Corpuscular Hemoglobin 27 25-34 PG Mean Corpuscular Hemoglobin Concent 32 32-36 G/DL Red Cell Distribution Width 17.1 H 10.0-14.5 % Platelet Count 195 130-400 10^3/uL Mean Platelet Volume 10.4 7.4-10.4 FL Neutrophils (%) (Auto) 85 H 42-75 % Lymphocytes (%) (Auto) 8 L 12-44 % Monocytes (%) (Auto) 6 0-12 % Eosinophils (%) (Auto) 1 0-10 % Basophils (%) (Auto) 0 0-10 % Neutrophils # (Auto) 8.6 H 1.8-7.8 X 10^3 Lymphocytes # (Auto) 0.8 L 1.0-4.0 X 10^3 Monocytes # (Auto) 0.6 0.0-1.0 X 10^3 Eosinophils # (Auto) 0.1 0.0-0.3 10^3/uL Basophils # (Auto) 0.0 0.0-0.1 10^3/uL Neutrophils % (Manual) 80 % Lymphocytes % (Manual) 11 % Monocytes % (Manual) 8 % Eosinophils % (Manual) 1 % Band Neutrophils % Blood Morphology Comment NORMAL Sodium Level 137 135-145 MMOL/L Potassium Level 4.3 3.6-5.0 MMOL/L Chloride Level 100 98-107 MMOL/L Carbon Dioxide Level 27 21-32 MMOL/L Anion Gap 10 5-14 MMOL/L Blood Urea Nitrogen 17 7-18 MG/DL Creatinine 1.08 0.60-1.30 MG/DL Estimat Glomerular Filtration Rate > 60 BUN/Creatinine Ratio 16 Glucose Level 177 H 70-105 MG/DL Calcium Level 9.6 8.5-10.1 MG/DL Corrected Calcium 9.8 8.5-10.1 MG/DL Total Bilirubin 1.2 H 0.1-1.0 MG/DL Aspartate Amino Transf (AST/SGOT) 21 5-34 U/L Alanine Aminotransferase (ALT/SGPT) 16 0-55 U/L Alkaline Phosphatase 117 40-136 U/L B-Type Natriuretic Peptide 148.7 H <100.0 PG/ML Total Protein 6.7 6.4-8.2 GM/DL Albumin 3.8 3.2-4.5 GM/DL Smear Scan Lactic Acid Level 1.38 0.50-2.00 MMOL/L Prothrombin Time 18.2 H 12.2-14.7 SEC INR Comment 1.5 H 0.8-1.4 Activated Partial Thromboplast Time 31 24-35 SEC D-Dimer 2.37 H 0.00-0.49 UG/ML Urine Color YELLOW Urine Clarity SLIGHTLY CLOUDY Urine pH 7 5-9 Urine Specific [place] 1.005 L 1.016-1.022 Urine Protein 1+ H NEGATIVE Urine Glucose (UA) NEGATIVE NEGATIVE Urine Ketones NEGATIVE NEGATIVE Urine Nitrite NEGATIVE NEGATIVE Urine Bilirubin NEGATIVE NEGATIVE Urine Urobilinogen 1 NORMAL MG/DL Urine Leukocyte Esterase NEGATIVE NEGATIVE Urine RBC (Auto) 2+ H NEGATIVE Urine RBC NONE /HPF Urine WBC NONE /HPF Urine Squamous Epithelial Cells RARE /HPF Urine Crystals NONE /LPF Urine Bacteria NEGATIVE /HPF Urine Casts PRESENT /LPF Urine Hyaline Casts RARE /LPF Urine Mucus NEGATIVE /LPF Urine Culture Indicated NO Test 3/19/19 05:40 07/06/18 07:54 07/06/18 10:57 Range/Units White Blood Count 6.3 4.3-11.0 10^3/uL Red Blood Count 5.04 4.35-5.85 10^6/uL Hemoglobin 13.5 13.3-17.7 G/DL Hematocrit 43 40-54 % Mean Corpuscular Volume 85 80-99 FL Mean Corpuscular Hemoglobin 27 25-34 PG Mean Corpuscular Hemoglobin Concent 32 32-36 G/DL Red Cell Distribution Width 16.9 H 10.0-14.5 % Platelet Count 161 130-400 10^3/uL Mean Platelet Volume 10.2 7.4-10.4 FL Neutrophils (%) (Auto) 67 42-75 % Lymphocytes (%) (Auto) 19 12-44 % Monocytes (%) (Auto) 12 0-12 % Eosinophils (%) (Auto) 2 0-10 % Basophils (%) (Auto) 1 0-10 % Neutrophils # (Auto) 4.2 1.8-7.8 X 10^3 Lymphocytes # (Auto) 1.2 1.0-4.0 X 10^3 Monocytes # (Auto) 0.8 0.0-1.0 X 10^3 Eosinophils # (Auto) 0.1 0.0-0.3 10^3/uL Basophils # (Auto) 0.0 0.0-0.1 10^3/uL Sodium Level 136 135-145 MMOL/L Potassium Level 3.5 L 3.6-5.0 MMOL/L Chloride Level 99 98-107 MMOL/L Carbon Dioxide Level 27 21-32 MMOL/L Anion Gap 10 5-14 MMOL/L Blood Urea Nitrogen 16 7-18 MG/DL Creatinine 1.04 0.60-1.30 MG/DL Estimat Glomerular Filtration Rate > 60 BUN/Creatinine Ratio 15 Glucose Level 104 70-105 MG/DL Calcium Level 9.9 8.5-10.1 MG/DL Corrected Calcium 9.9 8.5-10.1 MG/DL Total Bilirubin 1.2 H 0.1-1.0 MG/DL Aspartate Amino Transf (AST/SGOT) 25 5-34 U/L Alanine Aminotransferase (ALT/SGPT) 19 0-55 U/L Alkaline Phosphatase 119 40-136 U/L Total Protein 7.0 6.4-8.2 GM/DL Albumin 4.0 3.2-4.5 GM/DL Blood Gas Puncture Site LEFT RADIAL Blood Gas Patient Temperature 98.8 Arterial Blood pH 7.41 7.37-7.43 Arterial Blood Partial Pressure CO2 50 H 35-45 MMHG Arterial Blood Partial Pressure O2 85 79-93 MMHG Arterial Blood HCO3 31 H 23-27 MMOL/L Arterial Blood Total CO2 32.4 H 21.0-31.0 MMOL/L Arterial Blood Oxygen Saturation 96 94-100 % Arterial Blood Base Excess 6.2 H -2.5-2.5 MMOL/L Vitaly Test POSITIVE Blood Gas Ventilator Setting NO Blood Gas Inspired Oxygen 3 L Glucometer 168 H 70-110 MG/DL Physical Exam-([facility]) Physical Exam Vital Signs VS - Last 72 Hours, by Label 07/05/18 07/05/18 07/05/18 07/05/18 12:05 12:45 16:55 18:00 Temp 99.8 97.1 Pulse 89 78 75 Resp 28 20 22 B/P (MAP) 167/97 (120) 160/88 (112) 130/72 (91) Pulse Ox 88 94 92 97 O2 Delivery Room Air Nasal Cannula Nasal Cannula Nasal Cannula O2 Flow Rate 3.00 2.00 3.00 3.00 07/05/18 07/05/18 07/05/18 07/05/18 19:00 19:04 19:12 20:00 Temp 97.4 97.8 Pulse 89 87 76 Resp 20 20 B/P (MAP) 155/77 (103) 153/89 (110) Pulse Ox 92 98 96 O2 Delivery Nasal Cannula Nasal Cannula Nasal Cannula O2 Flow Rate 3.00 3.00 3.00 07/05/18 07/05/18 07/05/18 07/05/18 20:32 21:34 21:40 21:43 Pulse 83 Pulse Ox 98 95 97 O2 Delivery Nasal Cannula Nasal Cannula Nasal Cannula O2 Flow Rate 3.00 3.00 2.00 FiO2 32 07/05/18 07/05/18 07/06/18 07/06/18 21:51 23:34 00:00 01:01 Temp 97.6 97.6 Pulse 76 76 73 Resp 16 16 B/P (MAP) 158/99 (118) 158/99 (118) Pulse Ox 96 96 O2 Delivery Nasal Cannula Nasal Cannula Nasal Cannula O2 Flow Rate 3.00 3.00 3.00 07/06/18 07/06/18 07/06/18 07/06/18 03:09 04:00 07:00 07:57 Temp 97.1 Pulse 77 89 Resp 18 B/P (MAP) 15/87 (63) Pulse Ox 93 93 94 O2 Delivery Nasal Cannula Nasal Cannula Nasal Cannula O2 Flow Rate 3.00 3.00 3.00 07/06/18 07/06/18 08:00 08:00 Temp 98.8 Pulse 85 Resp 22 B/P (MAP) 162/81 (108) Pulse Ox 94 98 O2 Delivery Nasal Cannula Nasal Cannula O2 Flow Rate 3.00 3.00 Capillary Refill : Less Than 3 Seconds General Appearance: mild distress HEENT: normal ENT inspection Respiratory: other (breathing sounds difficult to assess from body habitus) Cardiovascular: normal peripheral pulses, other (heart sounds difficult to assess from body habitus) Neurologic/Psychiatric: alert, oriented x 3 Skin: normal color Assessment/Plan Assessment/Plan Admission Dx Acute on chronic respiratory failure with hypoxia Admission Status: Inpatient Order (span 2 midnights) Reason for Inpatient Admission: IV antibiotics, new oxygen requirements Assessment & Plan Patient is a 62 yo M who presented with SOB, fever, and weakness. Acute on chronic respiratory failure with hypoxia - Possible COPD exacerbation, acute CAP - CXR showing RLL infiltrate - Received Rocephin IM in ED - Reyes cultured - Influenza A&B negative - Continue 5 day course of rocephin - Begin 5 day course sterioid - Start 12-14 day course azithromycin - Likely new home oxygen patient during this admission Elevated D-dimer - low suspicion PE - negative doppler US - patient received 1 dose of levaquin - Patient receiving VQ scan 07/06/18 Clinical Quality Measures DVT/VTE Risk/Contraindication: Risk Factor Score Per Nursin RFS Level Per Nursing on Admit: 4+=Very High Copy Copies To 1: Feliz MURRAY HOLLY R MD 07/06/18 1524: HPI History of Present Illness: Agree with above HPI, reviewed with patient Home Medications Allergies Coded Allergies: Sulfa (Sulfonamide Antibiotics) (Unverified Allergy, Unknown, 03/21/14) latex (Unverified Allergy, Unknown, 03/21/14) raspberry (Unverified Allergy, Unknown, 03/21/14) zinc oxide (Unverified Allergy, Unknown, 03/21/14) Uncoded Allergies: ARTIFICIAL SWEETNERS (Allergy, Unknown, 03/21/14) Review of Systems ([facility]) Constitutional: fever, weakness, weight gain (In the last 4 months after starting insulin) EENTM: no symptoms reported Respiratory: dyspnea on exertion, orthopnea, short of breath Cardiovascular: No chest pain; edema; No palpitations Gastrointestinal: no symptoms reported; No abdominal pain, No constipation, No diarrhea, No nausea, No vomiting Genitourinary: no symptoms reported; No dysuria, No frequency, No hematuria Musculoskeletal: no symptoms reported Skin: rash, other (Chronic wounds on legs with chronic edema) Psychiatric/Neurological: No Symptoms Reported Physical Exam-([facility]) Physical Exam General Appearance: mild distress, obese, other (Conversational dyspnea) HEENT: normal ENT inspection Neck: non-tender, full range of motion, supple Respiratory: other (breathing sounds difficult to assess from body habitus, no wheezing/crackles) Cardiovascular: normal peripheral pulses, regular rate, rhythm, no murmur, other Gastrointestinal: normal bowel sounds, non tender, soft, no organomegaly Extremities: normal range of motion, no calf tenderness, pedal edema (3+) Neurologic/Psychiatric: front maker II-XII nml as tested, alert, oriented x 3 Skin: other (Compression wraps present on LE bilaterally) Lymphatic: no adenopathy Assessment/Plan Assessment/Plan Admission Status: Inpatient Order (span 2 midnights) Reason for Inpatient Admission: New oxygen requirement (1) Acute and chronic respiratory failure with hypoxia Status: Acute Assessment & Plan: 07/06: New oxygen requirement, titrate as tolerated, continue with IV antibiotics, MAT protocol, Steroids, Dr Perez consulted (2) Pulmonary edema Status: Acute Assessment & Plan: 07/06: Echo pending, Continue with IV lasix, Cardiology consulted (3) COPD with acute exacerbation Status: Acute Assessment & Plan: 07/06: See Above (4) VENKATA on CPAP Status: Chronic (5) Type II diabetes mellitus with complication Status: Chronic Assessment & Plan: 07/06: A1c pending, Accuchecks (6) Obstructive sleep apnea Status: Chronic (7) Elevated d-dimer Status: Acute Assessment & Plan: 3/19: Dopplers and V/Q scan with low probability, Will change lovenox to PPX dose from Therapeutic dose (8) Morbid obesity with BMI of 50.0-59.9, adult Status: Chronic (9) DVT prophylaxis Status: Acute Assessment & Plan: - SALVATORE Guadarrama MEDICAL STUDENT Jul 06, 2018 11:40 WESLY SEO MD Jul 06, 2018 15:24
--- NOTE | 2018-07-06 13:34 | Diagnostic Imaging Report ---
INDICATION: Pulmonary embolism. TECHNIQUE: The patient was administered 40.8 mCi of technetium 99m aerosolized DTPA with 1 mCi going to the patient. Imaging over the chest was performed. The patient was administered 5.4 mCi of technetium 99m MAA intravenously and imaging over the chest was performed in multiple obliquities. FINDINGS: There is fairly homogeneous ventilation and perfusion to both lungs. No ventilation defects are seen. No pleural-based perfusion defects are seen. IMPRESSION: The findings are consistent with a low probability for pulmonary embolism. Dictated by: Dictated on workstation # [id number]
--- NOTE | 2018-07-06 13:41 | NUR ---
CM/SS, interviewed patient about discharge planning. HHC: Established with [facility], will need to update agency with clinical information and orders to resume services. WOUNDCARE: Established with [facility] every other week, [facility] and his caregivers do dressing changes in the home per Rx. DME: Will need new home O2, patient has chosen [facility] as preferred agency. O2 to be coordinated once studies completed and orders available. IN-HOME SERVICES: Established with services under [facility] for 17 hours weekly, 4 days (, , , Thu) for 4.25 hours daily. Patient is also provided one meal daily under [employer], a mail-delivery meal program. SUMMARY: Patient resides at home with his 96 y.o. father and they have lived together many years. He has supportive care and services as noted above. Patient indicates he had a sleep study scheduled out patient for this , participation to be determined. He has a friend who will likely be his transport when released to home, patient can self-direct. Addendum: 07/06/18 at 1400 by ZEN LEMUS [place], [facility]: Patient is established with [facility], not [facility]
--- NOTE | 2018-07-06 13:57 | Physical Therapy Evaluation ---
PT Evaluation-General Medical Diagnosis Admission Date Jul 05, 2018 at 15:50 Medical Diagnosis: pneumonia/hypoxia Onset Date: Jul 05, 2018 Therapy Diagnosis Therapy Diagnosis: debility Height/Weight Height (Feet): 5 Height (Inches): 10.00 Weight (Pounds): 388 Weight (Ounces): 8.0 Precautions Precautions/Isolations: Standard Precautions Weight Bear Status Right Lower Extremity: Right Weight Bearing/Tolerated Left Lower Extremity: Left Weight Bearing/Tolerated Referral Physician: Dutch Reason for Referral: Evaluation/Treatment Medical History Pertinent Medical History: COPD, DM, HTN Additional Medical History morbid obesity; bilateral LE venous stasis wounds Current History ED secondary to SOA Reviewed History: Yes Social History Home: Single Level Current Living Status: Alone Entry Into Home: Ramp Prior/Core FIM Prior Level of Function Therapy Code Descriptions/Definitions Functional [place] Measure: 0=Not Assessed/NA 4=Minimal Assistance 1=Total Assistance 5=Supervision or Setup 2=Maximal Assistance 6=Modified [place] 3=Moderate Assistance 7=Complete [place] Therapy Quality Codes: 6 Independent with activity with or without an assistive device 5 Patient requires set up or clean up by helper. Patient completes activity by themselves 4 Supervision or touching assist (CGA). [place] provide cues , steadying assist 3 The helper provides less than half the effort to complete the activity 2 The helper provides more than half the effort to complete the activity 1 Dependent. The helper does all the effort to complete an activity 7 Patient refused to complete or attempt activity 9 The patient did not perform the activity before the current illness or injury 88 Not attempted due to Medical conditions or safety concerns Functional Abilities and Goals: Independent: Patient completed the activities by him/herself, with or without an assistive device, with no assistance from a helper. Needed Some Help: Patient needed partial assistance from another person to complete activities. Dependent: A helper completed the activities for the patient. Unknown: Not Applicable: Bed Mobility: 6 Transfers (B,C,W/C) (FIM): 6 Gait: 6 Indoor Mobility (Ambulation): Independent Stairs: Independent Prior Devices Use: None (canes bilaterally) PT Evaluation-Current Subjective Patient agrees to PT. He reports he is up ad safia in room. Pain Numeric Pain Scale: 0-No Pain Location: No Pain Reported Objective Patient Orientation: Normal For Age Problem Solving: Good Attachments: Oxygen (L) ROM/Strength ROM Lower Extremities bilateral LE wFL Strength Lower Extremities 4/5 grossly bilaterally Integumentary/Posture Integumentary refer to nursing notes Bowel Incontinence: No Bladder Incontinence: No Posture WFL Neuromuscular (Tone, Coordination, Reflexes) grossly intact Sensory Vision: Functional Hearing: Functional Sensation Right Lower Extremit: Impaired Sensation Left Lower Extremity: Impaired Transfers Therapy Code Descriptions/Definitions Functional [place] Measure: 0=Not Assessed/NA 4=Minimal Assistance 1=Total Assistance 5=Supervision or Setup 2=Maximal Assistance 6=Modified [place] 3=Moderate Assistance 7=Complete [place] Transfers (B, C, W/C) (FIM): 6 Scootin Sit to/from Stand: 6 Gait Mode of Locomotion: Walk Anticipated Mode of Locomotion: Walk Gait (FIM): 6 Distance (FIM): 3=150 ft Distance: 300' Gait Level of Assist: 6 Gait Assistive Device: Cane Single Point (bilaterally) Balance Sitting Static: Normal Sitting Dynamic: Normal Standing Static: Normal Standing Dynamic: Normal Assessment/Needs 62 y.o. male, is currently at [facility] with all gross motor skills and does not require skilled therapy intervention at this time. thank you for this referral. Rehab Potential: Fair Post Rehab Potential-Barriers: obesity PT Plan Treatment/Plan Treatment Plan: Discontinue PT, goals met Treatment Plan: Other Treatment Duration: Jul 06, 2018 Frequency: 1 time per week Estimated Hrs Per Day: .25 hour per day Patient and/or Family Agrees t: Yes Discharge Recommendations Therapy D/C Recommendations: Home Independently Time/GCodes Time In: 1245 Time Out: 1300 Total Billed Treatment Time: 15 Total Billed Treatment 1 visit [facility]LowC 15 min SAI ZHANG PT Jul 06, 2018 13:57
[2018-07-06] MEDS: ENOXAPARIN 60 MG/0.6 ML (LOVENOX) SYR SC SCH (18:46)
--- NOTE | 2018-07-06 20:52 | Wound Care Assessment ---
Wound Care Assessment Date Seen by Provider: Jul 06, 2018 Time Seen by Provider: 16:30 Chief Complaint R great toe and bilateral calf ulcers. HPI the patient is a 62 year old male with a non-healing R great toe DFU and bilateral calf venous insufficiency ulcers, known to this physician from ongoing episode of care [facility]. The patient states that he has been elevating his legs more, recently, and that his wounds on his calves have been healing. Indeed they are smaller, which the first time that has occurred since the wounds were first noted. The wounds are examined and orders for elevation, xeroform, Kerlix, Mamadou wraps daily are given. Negative bilateral venous Doppler exam and V:Q perfusion tests are reviewed. Will follow the patient while in house. Past Medical History: Admits Diabetes Type II COPD, VENKATA, HTN, fibromyalgia Smoking Status: Former Smoker Recreational Drug Use: No Alcohol Use: Denies Use Review of Systems General: No Chills Pulmonary: Dyspnea Cardiovascular: No: Chest Pain Musculoskeletal: leg pain Neurological: Weakness Exam Vital Signs Date Time Temp Pulse Resp B/P (MAP) Pulse Ox O2 Delivery O2 Flow Rate FiO2 07/06/18 19:40 97.7 93 20 157/99 (118) 94 Nasal Cannula 3.00 07/05/18 21:40 32 Capillary Refill : Less Than 3 Seconds Results Laboratory Tests 07/06/18 05:40: White Blood Count 6.3, Red Blood Count 5.04, Hemoglobin 13.5, Hematocrit 43, Mean Corpuscular Volume 85, Mean Corpuscular Hemoglobin 27, Mean Corpuscular Hemoglobin Concent 32, Red Cell Distribution Width 16.9H, Platelet Count 161, Mean Platelet Volume 10.2, Neutrophils (%) (Auto) 67, Lymphocytes (%) (Auto) 19 , Monocytes (%) (Auto) 12, Eosinophils (%) (Auto) 2, Basophils (%) (Auto) 1, Neutrophils # (Auto) 4.2, Lymphocytes # (Auto) 1.2, Monocytes # (Auto) 0.8, Eosinophils # (Auto) 0.1, Basophils # (Auto) 0.0, Sodium Level 136, Potassium Level 3.5L, Chloride Level 99, Carbon Dioxide Level 27, Anion Gap 10, Blood Urea Nitrogen 16, Creatinine 1.04, Estimat Glomerular Filtration Rate > 60, BUN/ Creatinine Ratio 15, Glucose Level 104, Calcium Level 9.9, Corrected Calcium 9.9 , Total Bilirubin 1.2H, Aspartate Amino Transf (AST/SGOT) 25, Alanine Aminotransferase (ALT/SGPT) 19, Alkaline Phosphatase 119, Total Protein 7.0, Albumin 4.0 07/06/18 07:54: Blood Gas Puncture Site LEFT RADIAL, Blood Gas Patient Temperature 98.8, Arterial Blood pH 7.41, Arterial Blood Partial Pressure CO2 50H, Arterial Blood Partial Pressure O2 85, Arterial Blood HCO3 31H, Arterial Blood Total CO2 32.4H , Arterial Blood Oxygen Saturation 96, Arterial Blood Base Excess 6.2H, Vitaly Test POSITIVE, Blood Gas Ventilator Setting NO, Blood Gas Inspired Oxygen 3 L 07/06/18 10:57: Glucometer 168H 07/06/18 16:40: Glucometer 214H Microbiology 07/05/18 Blood Culture - Preliminary, Resulted No growth 07/05/18 Influenza Types A,B Antigen (EDUARD) - Final, Complete 07/05/18 Urine Culture - Final, Complete See Report Microbiology 07/05/18 Blood Culture - Preliminary, Resulted No growth 07/05/18 Blood Culture - Preliminary, Resulted No growth 07/05/18 Influenza Types A,B Antigen (EDUARD) - Final, Complete 07/05/18 Urine Culture - Final, Complete See Report ALFONSO ESTRADA MD Jul 06, 2018 20:52
[2018-07-06] MEDS: DOXEPIN 100 MG PO SCH (21:02)
[2018-07-06] MEDS: ATORVASTATIN 40 MG (LIPITOR) TABLET PO SCH (21:02)
[2018-07-06] MEDS: diphenhydrAMINE 25 MG TAB (BENADRYL) PO SCH (21:03)
--- NOTE | 2018-07-06 22:40 | NUR ---
PT BP 194/108, RATING PAIN 9/10. DR SEO NOTIFIED ABOUT PT CONDITIONS AND NEW ORDERS RECEIVED TO ORDER MORPHINE 3MG IV Q2H PRN AND TO CALL BACK IF BP IS GREATER THAN 165/90
[2018-07-06] MEDS ORDERED: morphine INJ 4 MG/ML 1 ML (VIAL/SYRINGE) ONE (22:56)
[2018-07-06] MEDS: morphine INJ 4 MG/ML 1 ML (VIAL/SYRINGE) IVP PRN (23:02)
[2018-07-07 00:17] VITALS: BP 125/58
[2018-07-07] MEDS: RT-ALBUTEROL/IPRATROPIUM 3 ML (DUONEB) VIAL INH SCH ×6 (01:55→23:11)
[2018-07-07 03:49] VITALS: BP 135/70
[2018-07-07 04:23] LABS: BASOPHILS % (AUTO) 1 % (0-10); EOSINOPHILS # (AUTO) 0.2 10^3/uL (0.0-0.3); EOSINOPHILS % (AUTO) 4 % (0-10); HEMATOCRIT 42 % (40-54); HEMOGLOBIN 13.5 G/DL (13.3-17.7); LYMPHOCYTES % (AUTO) 17 % (12-44); MEAN CORPUSCULAR HEMOGLOBIN 28 PG (25-34); MEAN CORPUSCULAR HGB CONC 32 G/DL (32-36); MEAN CORPUSCULAR VOLUME 86 FL (80-99); MEAN PLATELET VOLUME 10.3 FL (7.4-10.4); MONOCYTES # (AUTO) 0.8 X 10^3 (0.0-1.0); MONOCYTES % (AUTO) 13 % (0-12); NEUTROPHILS # (AUTO) 4.1 X 10^3 (1.8-7.8); NEUTROPHILS % (AUTO) 66 % (42-75); PLATELET COUNT 171 10^3/uL (130-400); WHITE BLOOD COUNT 6.2 10^3/uL (4.3-11.0)
[2018-07-07 04:34] LABS: INR 1.4 (0.8-1.4); PROTHROMBIN TIME PATIENT 17.2 SEC (12.2-14.7)
[2018-07-07 04:46] LABS: ALANINE AMINOTRANSFERASE 23 U/L (0-55); ALKALINE PHOSPHATASE 111 U/L (40-136); BUN/CREATININE RATIO 14; CALCIUM 9.8 MG/DL (8.5-10.1); CARBON DIOXIDE 27 MMOL/L (21-32); CHLORIDE 101 MMOL/L (98-107); CREATININE SERUM 1.05 MG/DL (0.60-1.30); GFR ESTIMATED > 60; GLUCOSE 190 MG/DL (70-105); POTASSIUM 3.9 MMOL/L (3.6-5.0); SODIUM 140 MMOL/L (135-145)
[2018-07-07] MEDS: KCL 20 MEQ TAB (K-DUR) PO SCH (06:24)
[2018-07-07] MEDS: ENOXAPARIN 60 MG/0.6 ML (LOVENOX) SYR SC SCH ×2 (06:24→16:54)
[2018-07-07] MEDS: inSUlin ASPART (NovoLOG) 1 UNIT/0.01 ML (CHARGE PER UNIT) SC SCH ×4 (06:24→21:13)
[2018-07-07] MEDS: CATHETER FLUSH 10 ML SYR IV SCH ×3 (06:27→21:12)
--- NOTE | 2018-07-07 07:28 | Pulmonary Progress Note ---
Subjective Time Seen by a Provider: 07:30 Subjective/Events-last exam Pt appears to be doing better. Sepsis Event Evaluation Height, Weight, BMI Height: 5'10.00" Weight: 388lbs. 8.0oz. [id number]; 56.3 BMI Method:Stated Focused Exam Lactate Level 07/05/18 12:45: Lactic Acid Level 1.38 Exam Exam Vital Signs Date Time Temp Pulse Resp B/P (MAP) Pulse Ox O2 Delivery O2 Flow Rate FiO2 07/07/18 07:11 96 NIV CPAP 3.00 07/07/18 03:49 98.2 85 22 135/70 (91) 93 Nasal Cannula 3.00 07/07/18 01:55 88 Room Air 07/07/18 01:00 97 07/07/18 00:17 125/58 (80) 07/06/18 23:10 98.3 98 22 194/108 (136) 93 Nasal Cannula 3.00 07/06/18 23:07 94 NIV CPAP 3.00 07/06/18 20:00 Nasal Cannula 3.00 07/06/18 19:40 97.7 93 20 157/99 (118) 94 Nasal Cannula 3.00 07/06/18 19:00 93 07/06/18 18:47 94 Nasal Cannula 3.00 07/06/18 15:50 97.6 84 20 162/99 (120) 93 Nasal Cannula 3.00 07/06/18 15:37 95 Nasal Cannula 3.00 07/06/18 13:00 86 07/06/18 12:00 98.0 78 20 152/75 (100) 95 Nasal Cannula 3.00 07/06/18 08:00 98 Nasal Cannula 3.00 07/06/18 08:00 98.8 85 22 162/81 (108) 94 Nasal Cannula 3.00 07/06/18 07:57 94 Nasal Cannula 3.00 I & O 07/07/18 07:00 Intake Total 1160 ml Balance 1160 ml Height & Weight Height: 5'10.00" Weight: 388lbs. 8.0oz. 176.400297cr; 56.3 BMI Method:Stated General Appearance: No Apparent Distress, WD/WN HEENT: PERRL/EOMI, TMs Normal, Normal ENT Inspection, Pharynx Normal Neck: Full Range of Motion, Normal Inspection, Non Tender, Supple, Carotid Bruit Respiratory: Chest Non Tender, Lungs Clear, Normal Breath Sounds, No Accessory Muscle Use, No Respiratory Distress Cardiovascular: Regular Rate, Rhythm, No Gallop, No Murmur, Normal Peripheral Pulses Capillary Refill: Less Than 3 Seconds Gastrointestinal: normal bowel sounds, non tender, soft, no organomegaly Extremity: Normal Capillary Refill, Normal Inspection, Normal Range of Motion, Non Tender, No Calf Tenderness, No Pedal Edema Neurologic/Psychiatric: Alert, Oriented x3, No Motor/Sensory Deficits, Normal Mood/Affect Skin: Normal Color, Warm/Dry Lymphatic: No Adenopathy Results Lab Laboratory Tests 07/05/18 12:15 07/06/18 05:40 07/07/18 04:05 Assessment/Plan Assessment/Plan Dyspnea with hypoxia -SVNs -Oxygen - ABG - C02 is 50 -Repeat CXR today PA/LAT Pulmonary edema - r/o PNA -Reyes cultures pending -Influenza is negative -Check Echocardiogram Morbid obesity with OHS and probable VENAKTA -PT needs out patient PSG and full pulmonary work up - Hypoxia -oxygen -Pt may need home oxygen Diastolic CHF on last echo -repeat echo -cardiology following Elevated Ddimer - doubt PE - Pt is too large for CT scanner -V/Q scan is low probability -D/C theraputic dose Lovenox -Dopplers LE are negative TAMIKA HILARIO DO Jul 07, 2018 07:28
[2018-07-07 08:00] VITALS: BP 186/106
[2018-07-07] MEDS: METOPROLOL TARTRATE 100 MG TAB PO SCH ×2 (08:09→21:12)
[2018-07-07] MEDS: morphine INJ 4 MG/ML 1 ML (VIAL/SYRINGE) IVP PRN ×3 (08:09→16:48)
[2018-07-07] MEDS: DULOXETINE 60 MG CAPSULE PO SCH (08:10)
[2018-07-07] MEDS: FINASTERIDE (PROSCAR) 5 MG TAB PO SCH (08:11)
[2018-07-07] MEDS: ASPIRIN E.C. 325 MG (ECOTRIN) TABLET PO SCH (08:11)
--- NOTE | 2018-07-07 08:12 | Cardiology Progress Note ---
Subjective Date Seen by Provider: Jul 07, 2018 Time Seen by Provider: 08:09 Subjective/Events-last exam patient is sitting in bed, complaining of generalized body ache and shortness of breath Review of Systems General: No Chills, No Night Sweats; Fatigue, Malaise; No Appetite, No Other HEENT: No Head Aches, No Visual Changes, No Eye Pain, No Ear Pain, No Dysphasia , No Sinus Congestion, No Post Nasal Drip, No Sore Throat, No Other Pulmonary: Dyspnea; No Cough, No Pleuritic Chest Pain, No Other Cardiovascular: Edema; No: Chest Pain, Palpitations, Orthopnea, Paroxysmal Noc. Dyspnea, Lt Headedness, Other Focused Exam Lactate Level 07/05/18 12:45: Lactic Acid Level 1.38 Objective-Cardiology Exam Last Set of Vital Signs Vital Signs 07/05/18 07/07/18 07/07/18 07/07/18 21:40 03:49 07:00 07:11 Temp 98.2 Pulse 88 Resp 22 B/P (MAP) 135/70 (91) Pulse Ox 96 O2 Delivery NIV CPAP O2 Flow Rate 3.00 FiO2 32 Capillary Refill : Less Than 3 Seconds I&O Intake and Output 07/07/18 00:00 Intake Total 1350 ml Balance 1350 ml Intake Oral 1350 ml # Voids 16 General: Alert, Oriented X3, Cooperative HEENT: Atraumatic, PERRLA Neck: Supple, No JVD, No Thyromegaly Lungs: Clear to Auscultation, Normal Air Movement Heart: Regular Rate, Normal S1, Normal S2, No Murmurs Abdomen: Normal Bowel Sounds, Soft, No Tenderness, No Hepatosplenomegaly, No Masses Extremities: No Clubbing, No Cyanosis, Normal Pulses, No Tenderness/Swelling, Other (peripheral edema) Skin: Other (ulcers on the legs) Neuro: Normal Speech, Strength at 5/5 X4 Ext, Sensation Intact Psych/Mental Status: Mental Status NL, Mood NL Results Lab Laboratory Tests 07/07/18 04:05 A/P-Cardiology Admission Diagnosis Fever Shortness of breath Hypertension COPD Assessment/Plan Fever, shortness of breath, hypoxia, slightly better today Obstructive sleep apnea, maintained on C Pap, may require BiPAP. Managed by Dr. Perez Chronic edema, chronic venous stasis changes, workup in the past showed normal left ventricular systolic function with ejection fraction 70 percent on the MPI by Dr. Becker in July 2017. Last echo was done in 2015, planning to repeat 2- D echocardiogram and continue to monitor Cardiac catheterization done in 2009 and reported to have normal coronaries Morbid obesity. Generalized weakness and loss of energy. Clinical Quality Measures DVT/VTE Risk/Contraindication: Risk Factor Score Per Nursin RFS Level Per Nursing on Admit: 4+=Very High CHARAN STANLEY MD Jul 07, 2018 08:12
[2018-07-07] MEDS: LYRICA 200 MG CAPSULE PO SCH ×3 (08:19→21:11)
[2018-07-07] MEDS: FUROSEMIDE 40 MG/4 ML INJ (LASIX) IVP SCH (08:20)
--- NOTE | 2018-07-07 09:32 | Progress Note (SOAP) ---
SALVATORE MCKENZIE MEDICAL STUDENT 07/07/18 0932: Subjective Subjective/Events-last exam Patient was feeling relatively well this morning, other than some MSK pain that he deals with chronically. He worked with PT yesterday and had no issues walking down the halls. He has been coughing a little but thinks that he is breaking up his congestion. Patient has an appetite. Review of Systems Date Seen by Provider: Jul 07, 2018 Time Seen by Provider: 09:15 General: No Chills, No Night Sweats, No Fatigue, No Malaise, No Appetite, No Other Pulmonary: Dyspnea, Cough Cardiovascular: Edema Gastrointestinal: No: Nausea, Vomiting, Abdominal Pain, Diarrhea, Constipation , Melena, Hematochezia, Other Musculoskeletal: neck pain, shoulder pain; No: other, arm pain, back pain, hand pain, leg pain, foot pain Neurological: No: Weakness, Numbness, Incoordination, Change in speech, Confusion, Seizures, Other Focused Exam Lactate Level 07/05/18 12:45: Lactic Acid Level 1.38 Objective Exam Last Set of Vital Signs Vital Signs Date Time Temp Pulse Resp B/P (MAP) Pulse Ox O2 Delivery O2 Flow Rate FiO2 07/07/18 08:00 97.6 86 20 186/106 (132) 91 Nasal Cannula 3.00 07/05/18 21:40 32 Capillary Refill : Less Than 3 Seconds I&O Intake and Output 07/07/18 00:00 Intake Total 1350 ml Balance 1350 ml Intake Oral 1350 ml # Voids 16 General: Alert, Oriented X3, No Acute Distress HEENT: Atraumatic, EOMI Lungs: Normal Air Movement Heart: Regular Rate, No Murmurs Abdomen: Normal Bowel Sounds, Soft Results/Procedures Lab Laboratory Tests 07/06/18 10:57: Glucometer 168H 07/06/18 16:40: Glucometer 214H 07/06/18 20:46: Glucometer 219H 07/07/18 04:05: White Blood Count 6.2, Red Blood Count 4.89, Hemoglobin 13.5, Hematocrit 42, Mean Corpuscular Volume 86, Mean Corpuscular Hemoglobin 28, Mean Corpuscular Hemoglobin Concent 32, Red Cell Distribution Width 17.0H, Platelet Count 171, Mean Platelet Volume 10.3, Neutrophils (%) (Auto) 66, Lymphocytes (%) (Auto) 17 , Monocytes (%) (Auto) 13H, Eosinophils (%) (Auto) 4, Basophils (%) (Auto) 1, Neutrophils # (Auto) 4.1, Lymphocytes # (Auto) 1.0, Monocytes # (Auto) 0.8, Eosinophils # (Auto) 0.2, Basophils # (Auto) 0.0, Prothrombin Time 17.2H, INR Comment 1.4, Sodium Level 140, Potassium Level 3.9, Chloride Level 101, Carbon Dioxide Level 27, Anion Gap 12, Blood Urea Nitrogen 15, Creatinine 1.05, Estimat Glomerular Filtration Rate > 60, BUN/Creatinine Ratio 14, Glucose Level 190H, Calcium Level 9.8, Corrected Calcium 9.8, Total Bilirubin 1.0, Aspartate Amino Transf (AST/SGOT) 29, Alanine Aminotransferase (ALT/SGPT) 23, Alkaline Phosphatase 111, Total Protein 7.0, Albumin 4.0 07/07/18 05:49: Glucometer 191H Microbiology 07/05/18 Blood Culture - Preliminary, Resulted No growth 07/05/18 Influenza Types A,B Antigen (EDUARD) - Final, Complete 07/05/18 Urine Culture - Final, Complete See Report Assessment/Plan Assessment/Plan Assessment & Plan (1) Acute and chronic respiratory failure with hypoxia Status: Acute Assessment & Plan: 07/07: New oxygen requirement, titrate as tolerated, continue with IV antibiotics, MAT protocol, Steroids, Dr Perez consulted (2) Pulmonary edema Status: Acute Assessment & Plan: 07/07: Echo pending, Continue with IV lasix, Cardiology consulted (3) COPD with acute exacerbation Status: Acute Assessment & Plan: 07/07: See Above (4) VENKATA on CPAP Status: Chronic (5) Type II diabetes mellitus with complication Status: Chronic Assessment & Plan: 07/07: A1c pending, Accuchecks Qualifiers: Qualified Codes: E11.8 - Type 2 diabetes mellitus with unspecified complications (6) Obstructive sleep apnea Status: Chronic (7) Elevated d-dimer Status: Acute Assessment & Plan: 07/07: Dopplers and V/Q scan with low probability, Will change lovenox to PPX dose from Therapeutic dose (8) Morbid obesity with BMI of 50.0-59.9, adult Status: Chronic (9) DVT prophylaxis Status: Acute Assessment & Plan: - Lovenox Clinical Quality Measures DVT/VTE Risk/Contraindication: Risk Factor Score Per Nursin RFS Level Per Nursing on Admit: 4+=Very High WESLY SEO MD 07/07/182022: Subjective Subjective/Events-last exam Reviewed above with patient in addition. Patient states that he feels tired today Objective Exam General: Alert, Oriented X3, Mild Distress (with activity) Lungs: Normal Air Movement, Other (diminished breath sounds, no wheezing or crackles) Heart: Regular Rate, No Murmurs Abdomen: Normal Bowel Sounds, Soft Extremities: Other (3+ pitting edema with chronic lymph edema changes) Assessment/Plan Assessment/Plan (1) Acute and chronic respiratory failure with hypoxia Status: Acute Assessment & Plan: 07/07: New oxygen requirement, titrate as tolerated, continue with IV antibiotics, MAT protocol, Steroids, Dr Perez consulted (2) Pulmonary edema Status: Acute Assessment & Plan: 07/07: Echo pending, Continue with IV lasix, Cardiology consulted (3) COPD with acute exacerbation Status: Acute Assessment & Plan: 07/07: See Above (4) VENKATA on CPAP Status: Chronic Assessment & Plan: 07/07: Continue on home CPAP settings, patient has sleep study on night (5) Type II diabetes mellitus with complication Status: Chronic Assessment & Plan: 07/07: A1c pending, Accuchecks Qualifiers: Qualified Codes: E11.8 - Type 2 diabetes mellitus with unspecified complications (6) Obstructive sleep apnea Status: Chronic (7) Elevated d-dimer Status: Acute Assessment & Plan: 07/07: Dopplers and V/Q scan with low probability, Will change lovenox to PPX dose from Therapeutic dose (8) Morbid obesity with BMI of 50.0-59.9, adult Status: Chronic (9) DVT prophylaxis Status: Acute Assessment & Plan: - SALVATORE Guadarrama MEDICAL STUDENT Jul 07, 2018 09:32 WESLY SEO MD Jul 07, 2018 20:23
--- NOTE | 2018-07-07 09:41 | Diagnostic Imaging Report ---
INDICATION: Shortness of breath COMPARISON: 07/05/2018 FINDINGS: Frontal and lateral views of the chest demonstrate cardiac enlargement with slight central vascular congestion. There is continued atelectasis, effusion and infiltrate in the right base. There is no pneumothorax. Osseous structures are stable. IMPRESSION: 1. Unchanged atelectasis, effusion and infiltrate right base. 2. Cardiac enlargement with stable slight central vascular congestion. Dictated by: Dictated on workstation # [id number]
[2018-07-07 12:00] VITALS: BP 186/74
--- NOTE | 2018-07-07 12:41 | NUR ---
PT WAS PLACED ON OXYGEN BEFORE WALK STARTED BECAUSE RESTING SAT WAS 85% . PT WAS WALKED ON 2L/M FOR 6 MIN. THE LOWEST SAT BEING 93% Addendum: 07/07/18 at 1242 by DORIAN LINDSEY RT Amended: Links added.
[2018-07-07] MEDS: SYMBICORT 160/4.5 INHALER INH SCH ×2 (14:40→19:03)
[2018-07-07 16:40] VITALS: BP 176/106
[2018-07-07] MEDS: ACETAMINOPHEN 325 MG TABLET PO PRN (16:54)
[2018-07-07] MEDS ORDERED: MENTHOL/ZINC OXIDE (CALMOSEPTINE) 113 GM TUBE TOP PRN (17:30)
[2018-07-07 19:10] VITALS: BP 156/88
[2018-07-07] MEDS: ATORVASTATIN 40 MG (LIPITOR) TABLET PO SCH (21:11)
[2018-07-07] MEDS: MUPIROCIN 2% OINT 22 GM (BACTROBAN) TUBE TOP SCH (21:12)
[2018-07-07] MEDS: DOXEPIN 100 MG PO SCH (21:14)
[2018-07-07] MEDS: diphenhydrAMINE 25 MG TAB (BENADRYL) PO SCH (21:59)
[2018-07-08] VITALS: BP 131/71
[2018-07-08] MEDS: RT-ALBUTEROL/IPRATROPIUM 3 ML (DUONEB) VIAL INH SCH ×3 (03:19→10:34)
[2018-07-08 04:00] VITALS: BP 151/90
[2018-07-08 06:16] LABS: BASOPHILS % (AUTO) 1 % (0-10); EOSINOPHILS # (AUTO) 0.2 10^3/uL (0.0-0.3); EOSINOPHILS % (AUTO) 4 % (0-10); HEMATOCRIT 43 % (40-54); HEMOGLOBIN 13.2 G/DL (13.3-17.7); LYMPHOCYTES # (AUTO) 1.1 X 10^3 (1.0-4.0); LYMPHOCYTES % (AUTO) 18 % (12-44); MEAN CORPUSCULAR HEMOGLOBIN 27 PG (25-34); MEAN CORPUSCULAR HGB CONC 31 G/DL (32-36); MEAN CORPUSCULAR VOLUME 88 FL (80-99); MONOCYTES # (AUTO) 0.6 X 10^3 (0.0-1.0); MONOCYTES % (AUTO) 10 % (0-12); NEUTROPHILS # (AUTO) 4.3 X 10^3 (1.8-7.8); NEUTROPHILS % (AUTO) 69 % (42-75); PLATELET COUNT 170 10^3/uL (130-400); RED CELL DISTRIBUTION WIDTH 16.9 % (10.0-14.5); WHITE BLOOD COUNT 6.2 10^3/uL (4.3-11.0)
[2018-07-08] MEDS: inSUlin ASPART (NovoLOG) 1 UNIT/0.01 ML (CHARGE PER UNIT) SC SCH ×2 (06:20→10:27)
[2018-07-08] MEDS: ENOXAPARIN 60 MG/0.6 ML (LOVENOX) SYR SC SCH (06:20)
[2018-07-08] MEDS: CATHETER FLUSH 10 ML SYR IV SCH (06:20)
[2018-07-08] MEDS: KCL 20 MEQ TAB (K-DUR) PO SCH (06:20)
[2018-07-08 06:36] LABS: CARBON DIOXIDE 28 MMOL/L (21-32); CHLORIDE 101 MMOL/L (98-107); POTASSIUM 4.2 MMOL/L (3.6-5.0); SODIUM 142 MMOL/L (135-145)
[2018-07-08 06:37] LABS: ALANINE AMINOTRANSFERASE 21 U/L (0-55); ALBUMIN 4.2 GM/DL (3.2-4.5); ALKALINE PHOSPHATASE 119 U/L (40-136); BUN/CREATININE RATIO 17; CALCIUM 10.1 MG/DL (8.5-10.1); CREATININE SERUM 1.02 MG/DL (0.60-1.30); GFR ESTIMATED > 60; GLUCOSE 199 MG/DL (70-105); TOTAL PROTEIN 7.3 GM/DL (6.4-8.2)
[2018-07-08] MEDS: SYMBICORT 160/4.5 INHALER INH SCH (06:58)
[2018-07-08 08:00] VITALS: BP 170/94
--- NOTE | 2018-07-08 08:10 | Cardiology Progress Note ---
Subjective Date Seen by Provider: Jul 08, 2018 Time Seen by Provider: 08:08 Subjective/Events-last exam patient is sitting in a chair, denied any chest pain, still having dyspnea Review of Systems General: No Chills, No Night Sweats, No Fatigue, No Malaise, No Appetite, No Other HEENT: No Head Aches, No Visual Changes, No Eye Pain, No Ear Pain, No Dysphasia , No Sinus Congestion, No Post Nasal Drip, No Sore Throat, No Other Pulmonary: Dyspnea; No Cough, No Pleuritic Chest Pain, No Other Cardiovascular: No: Chest Pain, Palpitations, Orthopnea, Paroxysmal Noc. Dyspnea, Edema, Lt Headedness, Other Focused Exam Lactate Level 07/05/18 12:45: Lactic Acid Level 1.38 Objective-Cardiology Exam Last Set of Vital Signs Vital Signs 07/05/18 07/08/18 07/08/18 21:40 04:00 06:56 Temp 97.2 Pulse 82 Resp 20 B/P (MAP) 151/90 (110) Pulse Ox 92 O2 Delivery Nasal Cannula O2 Flow Rate 3.00 FiO2 32 Capillary Refill : Less Than 3 Seconds I&O Intake and Output 07/08/18 00:00 Intake Total 1980 ml Output Total 900 ml Balance 1080 ml Intake Oral 1980 ml Output Urine Total 900 ml # Voids 7 General: Alert, Oriented X3, Mild Distress (with activity) HEENT: Atraumatic, EOMI Neck: Supple, No JVD, No Thyromegaly Lungs: Normal Air Movement, Other (diminished breath sounds, no wheezing or crackles) Heart: Normal S1, Normal S2, No Murmurs Abdomen: Normal Bowel Sounds, Soft Extremities: No Clubbing, No Cyanosis, Other (3+ pitting edema with chronic lymph edema changes) Skin: Other (ulcers on the legs) Neuro: Normal Speech, Strength at 5/5 X4 Ext, Sensation Intact Psych/Mental Status: Mental Status NL, Mood NL Results Lab Laboratory Tests 07/08/18 05:35 A/P-Cardiology Admission Diagnosis Fever Shortness of breath Hypertension COPD Assessment/Plan Obstructive sleep apnea, maintained on C Pap, may require BiPAP. Managed by Dr. Perez Chronic edema, chronic venous stasis changes, workup in the past showed normal left ventricular systolic function with ejection fraction 70 percent on the MPI by Dr. Becker in July 2017. Last echo was done in 2015, planning to repeat 2- D echocardiogram and continue to monitor Cardiac catheterization done in 2009 and reported to have normal coronaries Morbid obesity. Generalized weakness and loss of energy. Clinical Quality Measures DVT/VTE Risk/Contraindication: Risk Factor Score Per Nursin RFS Level Per Nursing on Admit: 4+=Very High CHARAN STANLEY MD Jul 08, 2018 08:10
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
--- NOTE | 2018-07-08 09:48 | Pulmonary Progress Note ---
Subjective Time Seen by a Provider: 09:47 Subjective/Events-last exam Plan is for discharge today. Pt is scheduled for PSG in sleep lab today. Sepsis Event Evaluation Height, Weight, BMI Height: 5'10.00" Weight: 388lbs. 8.0oz. 176.672837kg; 56.3 BMI Method:Stated Focused Exam Lactate Level 07/05/18 12:45: Lactic Acid Level 1.38 Exam Exam Vital Signs Date Time Temp Pulse Resp B/P (MAP) Pulse Ox O2 Delivery O2 Flow Rate FiO2 07/08/18 08:00 98.6 80 22 170/94 (119) 96 Nasal Cannula 2.00 07/08/18 06:56 92 Nasal Cannula 3.00 07/08/18 04:00 97.2 82 20 151/90 (110) 93 Nasal Cannula 2.00 07/08/18 03:19 92 Nasal Cannula 3.00 07/08/18 00:00 97.6 98 20 131/71 (91) 94 Nasal Cannula 2.00 07/07/18 23:11 94 Nasal Cannula 3.00 07/07/18 20:00 Nasal Cannula 2.00 07/07/18 19:10 98.4 94 22 156/88 (110) 93 Nasal Cannula 2.50 07/07/18 19:04 94 Nasal Cannula 3.00 07/07/18 16:40 98.2 94 20 176/106 (129) 93 Nasal Cannula 1.50 07/07/18 12:59 79 07/07/18 12:33 96 3.00 07/07/18 12:00 98.2 89 22 186/74 (111) 93 Nasal Cannula 3.00 I & O 07/08/18 07:00 Intake Total 1880 ml Output Total 900 ml Balance 980 ml Height & Weight Height: 5'10.00" Weight: 388lbs. 8.0oz. 176.173782st; 56.3 BMI Method:Stated General Appearance: No Apparent Distress, WD/WN HEENT: PERRL/EOMI, TMs Normal, Normal ENT Inspection, Pharynx Normal Neck: Full Range of Motion, Normal Inspection, Non Tender, Supple, Carotid Bruit Respiratory: Chest Non Tender, Lungs Clear, Normal Breath Sounds, No Accessory Muscle Use, No Respiratory Distress Cardiovascular: Regular Rate, Rhythm, No Gallop, No Murmur, Normal Peripheral Pulses Capillary Refill: Less Than 3 Seconds Gastrointestinal: normal bowel sounds, non tender, soft, no organomegaly Extremity: Normal Capillary Refill, Normal Inspection, Normal Range of Motion, Non Tender, No Calf Tenderness, No Pedal Edema Neurologic/Psychiatric: Alert, Oriented x3, No Motor/Sensory Deficits, Normal Mood/Affect Skin: Normal Color, Warm/Dry Lymphatic: No Adenopathy Results Lab Laboratory Tests 07/07/18 04:05 07/08/18 05:35 Assessment/Plan Assessment/Plan Dyspnea with hypoxia -SVNs -Oxygen - ABG - C02 is 50 -Repeat CXR today PA/LAT Pulmonary edema - r/o PNA -Reyes cultures pending -Influenza is negative -Check Echocardiogram Morbid obesity with OHS and probable VENKATA PSG tonight and full pulmonary work up as out pt - Hypoxia -oxygen -Pt may need home oxygen. Will order amb desat test. Diastolic CHF on last echo -repeat echo -cardiology following Elevated Ddimer - doubt PE - Pt is too large for CT scanner -V/Q scan is low probability -Dopplers LE are negative TAMIKA HILARIO DO Jul 08, 2018 09:48
[2018-07-08] MEDS: LYRICA 200 MG CAPSULE PO SCH (10:13)
[2018-07-08] MEDS: FUROSEMIDE 40 MG/4 ML INJ (LASIX) IVP SCH (10:13)
[2018-07-08] MEDS: METOPROLOL TARTRATE 100 MG TAB PO SCH (10:14)
[2018-07-08] MEDS: DULOXETINE 60 MG CAPSULE PO SCH (10:15)
[2018-07-08] MEDS: ASPIRIN E.C. 325 MG (ECOTRIN) TABLET PO SCH (10:16)
[2018-07-08] MEDS: MUPIROCIN 2% OINT 22 GM (BACTROBAN) TUBE TOP SCH (10:17)
[2018-07-08] MEDS: FINASTERIDE (PROSCAR) 5 MG TAB PO SCH (10:17)
--- NOTE | 2018-07-08 10:30 | Progress Note (SOAP) ---
SALVATORE MCKENZIE MEDICAL STUDENT 07/08/18 1030: Subjective Subjective/Events-last exam Patient feels well this morning. Has slept well, had a normal diet, and been able to work with PT. Patient states that he is ready to go home today so that he can come back for his sleep study scheduled for this evening. Review of Systems Date Seen by Provider: Jul 08, 2018 Time Seen by Provider: 10:00 General: Fatigue HEENT: No Head Aches, No Visual Changes, No Eye Pain, No Ear Pain, No Dysphasia , No Sinus Congestion, No Post Nasal Drip, No Sore Throat, No Other Pulmonary: Dyspnea; No Cough, No Pleuritic Chest Pain, No Other Cardiovascular: No: Chest Pain, Palpitations, Orthopnea, Paroxysmal Noc. Dyspnea, Edema, Lt Headedness, Other Gastrointestinal: No: Nausea, Vomiting, Abdominal Pain, Diarrhea, Constipation , Melena, Hematochezia, Other Musculoskeletal: shoulder pain Neurological: No: Weakness, Numbness, Incoordination, Change in speech, Confusion, Seizures, Other Focused Exam Lactate Level 07/05/18 12:45: Lactic Acid Level 1.38 Objective Exam Last Set of Vital Signs Vital Signs Date Time Temp Pulse Resp B/P (MAP) Pulse Ox O2 Delivery O2 Flow Rate FiO2 07/08/18 08:00 98.6 80 22 170/94 (119) 96 Nasal Cannula 2.00 07/05/18 21:40 32 Capillary Refill : Less Than 3 Seconds I&O Intake and Output 07/08/18 00:00 Intake Total 1980 ml Output Total 900 ml Balance 1080 ml Intake Oral 1980 ml Output Urine Total 900 ml # Voids 7 General: Alert, Oriented X3, No Acute Distress HEENT: Atraumatic, PERRLA, EOMI Neck: Supple Lungs: Clear to Auscultation, Normal Air Movement Heart: Regular Rate, No Murmurs Abdomen: Normal Bowel Sounds Extremities: No Cyanosis, Normal Pulses Neuro: Normal Gait, Sensation Intact, Cranial Nerves 3-12 NL, Reflexes 2+ Results/Procedures Lab Laboratory Tests 07/07/18 11:14: Glucometer 149H 07/07/18 16:37: Glucometer 181H 07/07/18 20:51: Glucometer 257H 07/08/18 05:16: Glucometer 196H 07/08/18 05:35: White Blood Count 6.2, Red Blood Count 4.88, Hemoglobin 13.2L, Hematocrit 43, Mean Corpuscular Volume 88, Mean Corpuscular Hemoglobin 27, Mean Corpuscular Hemoglobin Concent 31L, Red Cell Distribution Width 16.9H, Platelet Count 170, Mean Platelet Volume 10.0, Neutrophils (%) (Auto) 69, Lymphocytes (%) (Auto) 18 , Monocytes (%) (Auto) 10, Eosinophils (%) (Auto) 4, Basophils (%) (Auto) 1, Neutrophils # (Auto) 4.3, Lymphocytes # (Auto) 1.1, Monocytes # (Auto) 0.6, Eosinophils # (Auto) 0.2, Basophils # (Auto) 0.0, Sodium Level 142, Potassium Level 4.2, Chloride Level 101, Carbon Dioxide Level 28, Anion Gap 13, Blood Urea Nitrogen 17, Creatinine 1.02, Estimat Glomerular Filtration Rate > 60, BUN/ Creatinine Ratio 17, Glucose Level 199H, Calcium Level 10.1, Corrected Calcium 9.9, Total Bilirubin 1.0, Aspartate Amino Transf (AST/SGOT) 25, Alanine Aminotransferase (ALT/SGPT) 21, Alkaline Phosphatase 119, Total Protein 7.3, Albumin 4.2 Microbiology 07/05/18 Blood Culture - Preliminary, Resulted No growth 07/05/18 Influenza Types A,B Antigen (EDUARD) - Final, Complete 07/05/18 Urine Culture - Final, Complete See Report Assessment/Plan Assessment/Plan Assessment & Plan (1) Acute and chronic respiratory failure with hypoxia Status: Acute Assessment & Plan: 07/08: New oxygen requirement requiring home health, discharge with oral antibiotics, MAT protocol, Steroids, Dr Perez consulted (2) Pulmonary edema Status: Acute Assessment & Plan: 07/08: Restart home dose oral lasix (3) COPD with acute exacerbation Status: Acute Assessment & Plan: 07/08: See Above (4) VENKATA on CPAP Status: Chronic Assessment & Plan: 07/08: Continue on home CPAP settings, patient has sleep study on night (5) Type II diabetes mellitus with complication Status: Chronic Assessment & Plan: 07/08: Restart home dose insulin Qualifiers: Qualified Codes: E11.8 - Type 2 diabetes mellitus with unspecified complications (6) Obstructive sleep apnea Status: Chronic (7) Elevated d-dimer Status: Acute Assessment & Plan: 07/08: Dopplers and V/Q scan with low probability, Will change lovenox to PPX dose from Therapeutic dose (8) Morbid obesity with BMI of 50.0-59.9, adult Status: Chronic (9) DVT prophylaxis Status: Acute Assessment & Plan: - Lovenox Clinical Quality Measures DVT/VTE Risk/Contraindication: Risk Factor Score Per Nursin RFS Level Per Nursing on Admit: 4+=Very High WESLY SEO MD 07/08/18 2218: Assessment/Plan Assessment/Plan Assessment & Plan See Discharge Summary By SALVATORE pSears MEDICAL STUDENT Jul 08, 2018 10:30 WESLY SEO MD Jul 08, 2018 22:18
[2018-07-08] MEDS: ACETAMINOPHEN 325 MG TABLET PO PRN (10:32)
--- NOTE | 2018-07-08 11:10 | Discharge Summary ---
Diagnosis/Chief Complaint Date of Admission Jul 05, 2018 at 15:50 Date of Discharge Discharge Diagnosis Problems/Diagnosis: (1) Acute and chronic respiratory failure with hypoxia Assessment & Plan: 07/08: New oxygen requirement requiring home health, discharge with oral antibiotics, MAT protocol, Steroids, Dr Perez consulted Status: Acute (2) Pulmonary edema Assessment & Plan: 07/08: Restart home dose oral lasix Status: Acute (3) COPD with acute exacerbation Assessment & Plan: 07/08: See Above Status: Acute (4) VENKATA on CPAP Assessment & Plan: 07/08: Continue on home CPAP settings, patient has sleep study on night Status: Chronic (5) Type II diabetes mellitus with complication Assessment & Plan: 07/08: Restart home dose insulin Qualifiers: Qualified Codes: E11.8 - Type 2 diabetes mellitus with unspecified complications Status: Chronic (6) Obstructive sleep apnea Status: Chronic (7) Elevated d-dimer Assessment & Plan: 07/08: Dopplers and V/Q scan with low probability, Will change lovenox to PPX dose from Therapeutic dose Status: Acute (8) Morbid obesity with BMI of 50.0-59.9, adult Status: Chronic (9) DVT prophylaxis Assessment & Plan: - Lovenox Status: Acute Chief Complaint/HPI Chief Complaint/HPI Agree with above HPI, reviewed with patient Discharge Summary-Simple/Stand Consultations Discharge Physical Examination Allergies: Coded Allergies: Sulfa (Sulfonamide Antibiotics) (Unverified Allergy, Unknown, 03/21/14) latex (Unverified Allergy, Unknown, 03/21/14) raspberry (Unverified Allergy, Unknown, 03/21/14) zinc oxide (Unverified Allergy, Unknown, 03/21/14) Uncoded Allergies: ARTIFICIAL SWEETNERS (Allergy, Unknown, 03/21/14) Vitals & I&Os Vital Sign - Last 12Hours Date Time Temp Pulse Resp B/P (MAP) Pulse Ox O2 Delivery O2 Flow Rate FiO2 07/08/18 10:36 94 Nasal Cannula 3.00 07/08/18 08:00 98.6 80 22 170/94 (119) 07/05/18 21:40 32 Intake and Output 07/07/18 23:59 Intake Total 1730 ml Output Total 900 ml Balance 830 ml Hospital Course See final discharge diagnosis. Discharge Instructions to patient/family Please see electronic discharge instructions given to patient. Discharge Medications Reviewed and agree with Discharge Medication list on patient's Discharge Instruction sheet Clinical Quality Measures DVT/VTE Risk/Contraindication: Risk Factor Score Per Nursin RFS Level Per Nursing on Admit: 4+=Very High WESLY SEO MD Jul 08, 2018 11:10
--- NOTE | 2018-07-08 11:15 | Discharge Instructions ---
Discharge [facility] Discharge Medications New, Converted or Re-Newed RX: Other Continued Medications: Acetaminophen (Acetaminophen Extra Strength) 500 Mg Tablet 1000 MG PO TID, TAB Aspirin (Aspirin EC) 325 Mg Tablet.dr 325 MG PO DAILY, TAB Atorvastatin Calcium (Atorvastatin Calcium) 40 Mg Tablet 40 MG PO HS, TAB B Complex with Vitamin C (Super B Complex-Vitamin C) 1 Each Tablet 1 EACH PO DAILY for 30 Days, TAB Budesonide/Formoterol Fumarate (Symbicort 160-4.5 Mcg Inhaler) 10.2 Gm Hfa.aer.ad 2 PUFF INH BID, INHALER Diphenhydramine HCl (Diphenhydramine HCl) 25 Mg Capsule 25 MG PO HS for 30 Days, CAP Doxepin HCl (Doxepin HCl) 100 Mg Capsule 200 MG PO HS Duloxetine HCl (Duloxetine HCl) 60 Mg Capsule.dr 60 MG PO DAILY, CAP Finasteride (Finasteride) 5 Mg Tablet 5 MG PO DAILY Furosemide (Furosemide) 20 Mg Tablet 20 MG PO TID, TAB Glipizide (Glipizide) 10 Mg Tablet 20 MG PO BID, TAB TAKES 2 (10MG) TABLETS Hydrochlorothiazide (Hydrochlorothiazide) 25 Mg Tablet 25 MG PO DAILY, TAB Insulin Glargine,Hum.rec.anlog (Basaglar Kwikpen U-100) 100 Unit/1 Ml Insuln.pen 80 UNITS SC HS, EA Lidocaine (Lidocaine) 1 Each Adh..patch 2-3 PATCH TOP DAILY, EA Metoprolol Tartrate (Metoprolol Tartrate) 100 Mg Tablet 100 MG PO BID, TAB Swan-3S/Dha/Epa/Fish Oil/D3 (Fish Oil + D3 Softgel) 1 Each Capsule 1 CAP PO BID, CAP Polyethylene Glycol 3350 (Polyethylene Glycol 3350) 17 Gm Powd.pack 17 GM PO DAILY, #1 EA 0 Refills Pregabalin (Lyrica) 200 Mg Capsule 200 MG PO TID, CAP Tizanidine HCl (Tizanidine HCl) 4 Mg Tablet 6 MG PO TID PRN for BREAKTHROUGH PAIN Discontinued Medications: Potassium Chloride (Potassium Chloride) 10 Meq Tab.er.prt 10 MEQ PO BID Patient Instructions Goal/Follow Up Appt: You have a hospital follow up with Feliz Lowe Thursday 25 @ 1040 Patient Instructions: - Make sure you keep your sleep study appt and PFT Activity & Diet Discharge Diet: ADA Diet Activity as Tolerated: No WESLY SEO MD Jul 08, 2018 11:15
[2018-07-08 12:00] VITALS: BP 177/107
--- NOTE | 2018-07-08 12:30 | NUR ---
CM/SS patient discharging this day. Resumption orders for [facility], sent discharge information to them, they will resume services on 07/09/18. Patient requires oxygen at discharge, [facility] was his choice provider and they will deliver portable to the room.
[2018-07-08 15:10] VITALS: BP 168/88
--- NOTE | 2018-07-08 15:10 | NUR ---
KEISHA BECERRIL demonstrates understanding of discharge instructions and accurately returns instructions upon questioning. Copy of Post-Discharge Instructions given to pt. KEISHA BECERRIL is able to manage continuing needs after discharge with assistance of home health care. Patients belongings returned to pt. Patient discharged from [facility] on 07/08/18 at 1510 . KEISHA BECERRIL left floor via w/c, accompanied by staff and FRIEND PER AUTO.
--- NOTE | 2018-07-09 10:03 | Physician Query Clarification ---
PQ-Uncertain Diagnosis Admission/Discharge Admission Date: Jul 05, 2018 at 15:50 Discharge Date: Jul 08, 2018 at 15:10 The medical record reflects the following clinical scenario: History/Risk Factors: Per ER physician Pneumonia Per H&P acute CAP Clinical Findings: fever of 101; right basilar infiltrate Treatment: He will be treated with the pneumonia protocol. Question: Is Pneumonia a clinically valid diagnosis? Pneumonia was documented in the ER record and H&P on 07/05/18 with no further documentation in the medical record. Please document a response below. PHYSICIAN RESPONSE Diagnosis clinically valid: Undetermined Explanation of clincal finding Patient was treated for PNA however it was not confirmed In responding to this query, please exercise your independent professional judgment. The purpose of this communication is to more accurately reflect the complexity of your patients condition. The fact that a question is asked does not imply that any particular answer is desired or expected. Thank you for your timely response to this clarification. Requestors name: Sheila Brizuela THIS PHYSICIAN QUERY FORM IS A PERMANENT PART OF THE MEDICAL RECORD PRAVEEN BRIZUELA Jul 09, 2018 10:03 WESLY SEO MD Jul 21, 2018 08:49
== END 2018-07-08 15:10 | disposition home health service (06) | DRG 189 ==
LOC: EDUNIT# 12:03 → ER 12:05 → 4TH 15:50
PROVIDERS: ADMIT Family Medicine; ATTEND Family Medicine
DX: J96.21 Acute and chronic respiratory failure with hypoxia (principal); J81.0 Acute pulmonary edema; J44.1 Chronic obstructive pulmonary disease with (acute) exacerbation; E66.2 Morbid (severe) obesity with alveolar hypoventilation; Z68.43 Body mass index [BMI] 50.0-59.9, adult; I11.0 Hypertensive heart disease with heart failure; I50.30 Unspecified diastolic (congestive) heart failure; L97.219 Non-pressure chronic ulcer of right calf with unspecified severity; L97.229 Non-pressure chronic ulcer of left calf with unspecified severity; L97.519 Non-pressure chronic ulcer of other part of right foot with unspecified severity; R79.1 Abnormal coagulation profile; E87.6 Hypokalemia; E78.00 Pure hypercholesterolemia, unspecified; E11.42 Type 2 diabetes mellitus with diabetic polyneuropathy; M19.91 Primary osteoarthritis, unspecified site; M79.7 Fibromyalgia; I87.2 Venous insufficiency (chronic) (peripheral); K59.00 Constipation, unspecified; N40.0 Benign prostatic hyperplasia without lower urinary tract symptoms; Z79.4 Long term (current) use of insulin; Z87.891 Personal history of nicotine dependence
CPT/HCPCS: 36415; 36600; 71045; 71046; 78582; 80053; 81000; 82805; 82962; 83036; 83605; 83880; 85007; 85025; 85027; 85379; 85610; 85730; 87040; 87088; 87804; 93005; 93041; 93306; 93970; 94640; 94760; 94761; 96374

== ENCOUNTER 2018-07-08 19:42 | Outpatient (CLI) | payer MEDICAID ==
[~2018-07-08 19:42] MED LIST changes: +DIPH25CA6 PO; +DOXE100C4 PO; +FINA5TAB6 PO; +INSU100I34 SC; +POTA10TA36 PO; +TIZA4TAB3 PO; +VITA1TAB33 PO
== END 2018-07-09 07:06 | disposition home or self-care (01) ==
LOC: SLEEP 19:42
PROVIDERS: ATTEND Nurse Practitioner Family
DX: G47.33 Obstructive sleep apnea (adult) (pediatric) (principal); J98.4 Other disorders of lung; R06.89 Other abnormalities of breathing; R06.09 Other forms of dyspnea; Z78.9 Other specified health status
CPT/HCPCS: 95811

== ENCOUNTER → 2018-07-09 | Outpatient (CLI) | payer MEDICAID ==
[~2018-07-09] MED LIST changes: +RT-ALBUTEROL SULF 2.5 MG/3 ML PRE-MIX VIAL INH ONE; +RT-ALBUTEROL SULF 2.5 MG/3 ML PRE-MIX VIAL ONE
== END ==
LOC: RT 12:39
PROVIDERS: ATTEND Nurse Practitioner Family
DX: J98.4 Other disorders of lung (principal); G47.30 Sleep apnea, unspecified; R06.89 Other abnormalities of breathing; R06.09 Other forms of dyspnea; Z78.9 Other specified health status
CPT/HCPCS: 94060; 94726; 94729

== ENCOUNTER → 2018-07-14 | Outpatient (CLI) | payer MEDICAID ==
[~2018-07-14] MED LIST changes: -RT-ALBUTEROL SULF 2.5 MG/3 ML PRE-MIX VIAL INH ONE; -RT-ALBUTEROL SULF 2.5 MG/3 ML PRE-MIX VIAL ONE
== END ==
LOC: WOUNDCARE 13:45
PROVIDERS: ATTEND Surgery
DX: E11.621 Type 2 diabetes mellitus with foot ulcer (principal); L97.512 Non-pressure chronic ulcer of other part of right foot with fat layer exposed; I87.333 Chronic venous hypertension (idiopathic) with ulcer and inflammation of bilateral lower extremity; L97.221 Non-pressure chronic ulcer of left calf limited to breakdown of skin; L97.211 Non-pressure chronic ulcer of right calf limited to breakdown of skin; E11.42 Type 2 diabetes mellitus with diabetic polyneuropathy; I89.0 Lymphedema, not elsewhere classified; E66.01 Morbid (severe) obesity due to excess calories; Z68.43 Body mass index [BMI] 50.0-59.9, adult
CPT/HCPCS: 99215

== ENCOUNTER → 2018-07-28 | Outpatient (CLI) | payer MEDICAID | LOC: WOUNDCARE 13:47 | PROVIDERS: ATTEND Surgery | DX: E11.621 Type 2 diabetes mellitus with foot ulcer (principal); L97.512 Non-pressure chronic ulcer of other part of right foot with fat layer exposed; I87.333 Chronic venous hypertension (idiopathic) with ulcer and inflammation of bilateral lower extremity; L97.221 Non-pressure chronic ulcer of left calf limited to breakdown of skin; L97.211 Non-pressure chronic ulcer of right calf limited to breakdown of skin; E11.42 Type 2 diabetes mellitus with diabetic polyneuropathy; I89.0 Lymphedema, not elsewhere classified; E66.01 Morbid (severe) obesity due to excess calories; Z68.43 Body mass index [BMI] 50.0-59.9, adult | CPT/HCPCS: 99214 ==

== ENCOUNTER → 2018-08-11 | Outpatient (CLI) | payer MEDICAID | LOC: WOUNDCARE 12:42 | PROVIDERS: ATTEND Surgery | DX: E11.621 Type 2 diabetes mellitus with foot ulcer (principal); L97.512 Non-pressure chronic ulcer of other part of right foot with fat layer exposed; I87.333 Chronic venous hypertension (idiopathic) with ulcer and inflammation of bilateral lower extremity; L97.221 Non-pressure chronic ulcer of left calf limited to breakdown of skin; L97.222 Non-pressure chronic ulcer of left calf with fat layer exposed; L97.211 Non-pressure chronic ulcer of right calf limited to breakdown of skin; E11.42 Type 2 diabetes mellitus with diabetic polyneuropathy; I89.0 Lymphedema, not elsewhere classified; E66.01 Morbid (severe) obesity due to excess calories; Z68.43 Body mass index [BMI] 50.0-59.9, adult | CPT/HCPCS: 11042 ==

== ENCOUNTER 2018-08-27 13:33 | Inpatient (IN) | payer MEDICAID ==
[2018-08-27] VITALS (13 sets, daily range): BP systolic 117–173; BP diastolic 70–107
[~2018-08-27] VITALS: Ht 177.8 cm; Wt 184.3 kg
[2018-08-27] MEDS ORDERED: DEXTROSE 50% 50 ML (IMS) SYR IV ONE (13:45)
[2018-08-27] MEDS ORDERED: CEFEPIME INJECTION 1,000 MG in WATER (STERILE) FOR INJECTION 10 ML IV ONE (13:45)
[2018-08-27] MEDS: NS IV 1000 ML 1,000 ML IV SCH ×2 (13:49→16:17)
[2018-08-27 13:55] LABS: ABG BASE EXCESS 10.6 MMOL/L (-2.5-2.5); ABG OXYGEN SATURATION 97 % (94-100); ABG PCO2 51 MMHG (35-45); ABG PH 7.45 (7.37-7.43); ABG PO2 129 MMHG (79-93)
[2018-08-27 13:57] LABS: PATIENT TEMP 96.8
[2018-08-27 13:58] LABS: BASOPHILS % (AUTO) 0 % (0-10); BILIRUBIN,URINE NEGATIVE (NEGATIVE); CLARITY,URINE CLEAR; COLOR,URINE YELLOW; EOSINOPHILS # (AUTO) 0.1 10^3/uL (0.0-0.3); EOSINOPHILS % (AUTO) 0 % (0-10); GLUCOSE, URINE (UA) NEGATIVE (NEGATIVE); HEMATOCRIT 46 % (40-54); HEMOGLOBIN 14.7 G/DL (13.3-17.7); KETONES,URINE NEGATIVE (NEGATIVE); LEUKOCYTE ESTERASE ,URINE NEGATIVE (NEGATIVE); LYMPHOCYTES # (AUTO) 0.5 X 10^3 (1.0-4.0); LYMPHOCYTES % (AUTO) 4 % (12-44); MEAN CORPUSCULAR HEMOGLOBIN 28 PG (25-34); MEAN CORPUSCULAR HGB CONC 32 G/DL (32-36); MEAN CORPUSCULAR VOLUME 86 FL (80-99); MEAN PLATELET VOLUME 10.7 FL (7.4-10.4); MONOCYTES # (AUTO) 0.8 X 10^3 (0.0-1.0); MONOCYTES % (AUTO) 6 % (0-12); NEUTROPHILS # (AUTO) 12.9 X 10^3 (1.8-7.8); NEUTROPHILS % (AUTO) 90 % (42-75); NITRITE,URINE NEGATIVE (NEGATIVE); PH,URINE 8 (5-9); PLATELET COUNT 145 10^3/uL (130-400); PROTEIN,URINE 2+ (NEGATIVE); RED CELL DISTRIBUTION WIDTH 18.6 % (10.0-14.5); UROBILINOGEN,URINE 4 MG/DL (NORMAL); WHITE BLOOD COUNT 14.4 10^3/uL (4.3-11.0)
[2018-08-27 14:05] LABS: BACTERIA,URINE NEGATIVE /HPF; RBC,URINE RARE /HPF; SQUAMOUS EPITHELIAL CELL,UR 0-2 /HPF; WBC,URINE RARE /HPF
[2018-08-27 14:07] LABS: INR 1.3 (0.8-1.4); PROTHROMBIN TIME PATIENT 17.1 SEC (12.2-14.7)
[2018-08-27 14:14] LABS: ALANINE AMINOTRANSFERASE 17 U/L (0-55); ALBUMIN 4.4 GM/DL (3.2-4.5); ALKALINE PHOSPHATASE 120 U/L (40-136); BILIRUBIN,TOTAL 1.8 MG/DL (0.1-1.0); BUN/CREATININE RATIO 17; CALCIUM 10.7 MG/DL (8.5-10.1); CARBON DIOXIDE 31 MMOL/L (21-32); CHLORIDE 96 MMOL/L (98-107); CREATINE KINASE 130 U/L (30-200); CREATININE SERUM 1.16 MG/DL (0.60-1.30); GFR ESTIMATED > 60; POTASSIUM 2.9 MMOL/L (3.6-5.0); SODIUM 142 MMOL/L (135-145); TOTAL PROTEIN 7.7 GM/DL (6.4-8.2)
--- NOTE | 2018-08-27 14:17 | ED Fall/Injury ---
General Chief Complaint: Trauma-Non Activation Stated Complaint: FALL Nursing Triage Note: To ED via EMS. Pt reports fall and being on ground for approximately 5 hours. Pt reports hitting head. Source: patient, EMS Exam Limitations: clinical condition History of Present Illness Date Seen by Provider: August 27, 2018 Time Seen by Provider: 13:33 Initial Comments The patient presents to ER by EMS with chief complaint of a fall having been found down by family where he laid probably about 5 hours. EMS reports blood sugar was 50 when he first checked him so they gave him some oral glucose rechecked and was 30. Patient was conscious talking and answering questions but very somnolent. Patient denies any history of recent illness, fevers, chills, cough or dysuria. He is complaining of some pain in his back. EMS was unable to obtain IV access. Allergies and Home Medications Allergies Coded Allergies: Sulfa (Sulfonamide Antibiotics) (Unverified Allergy, Unknown, 03/21/14) latex (Unverified Allergy, Unknown, 03/21/14) raspberry (Unverified Allergy, Unknown, 03/21/14) zinc oxide (Unverified Allergy, Unknown, 03/21/14) Uncoded Allergies: ARTIFICIAL SWEETNERS (Allergy, Unknown, 03/21/14) Home Medications Acetaminophen 500 Mg Tablet, 1,000 MG PO TID, (Reported) Aspirin 325 Mg Tablet.dr, 325 MG PO DAILY, (Reported) Atorvastatin Calcium 40 Mg Tablet, 40 MG PO HS, (Reported) B Complex with Vitamin C 1 Each Tablet, 1 EACH PO DAILY Prescribed by: HROACE CASAS on 07/05/181827 Budesonide/Formoterol Fumarate 10.2 Gm Hfa.aer.ad, 2 PUFF INH BID, (Reported) Diphenhydramine HCl 25 Mg Capsule, 25 MG PO HS Prescribed by: HORACE CASAS on 07/05/18 183 Doxepin HCl 100 Mg Capsule, 200 MG PO HS, (Reported) Duloxetine HCl 60 Mg Capsule.dr, 60 MG PO DAILY, (Reported) Finasteride 5 Mg Tablet, 5 MG PO DAILY, (Reported) Furosemide 20 Mg Tablet, 20 MG PO TID, (Reported) Glipizide 10 Mg Tablet, 20 MG PO BID, (Reported) TAKES 2 (10MG) TABLETS Hydrochlorothiazide 25 Mg Tablet, 25 MG PO DAILY, (Reported) Insulin Glargine,Hum.rec.anlog 100 Unit/1 Ml Insuln.pen, 80 UNITS SC HS, ( Reported) Lidocaine 1 Each Adh..patch, 2-3 PATCH TOP DAILY, (Reported) Metoprolol Tartrate 100 Mg Tablet, 100 MG PO BID, (Reported) [place]-3S/Dha/Epa/Fish Oil/D3 1 Each Capsule, 1 CAP PO BID, (Reported) Polyethylene Glycol 3350 17 Gm Powd.pack, 17 GM PO DAILY Prescribed by: JOHN BUCIO on 10/05/17 1426 Pregabalin 200 Mg Capsule, 200 MG PO TID, (Reported) Tizanidine HCl 4 Mg Tablet, 6 MG PO TID PRN for BREAKTHROUGH PAIN, (Reported) Patient Home Medication List Home Medication List Reviewed: Yes Review of Systems Review of Systems Constitutional: No chills, No diaphoresis Eyes: Denies Blindness, Denies Blurred Vision Ears, Nose, Mouth, Throat: denies ear pain, denies ear discharge Respiratory: No cough; short of breath Cardiovascular: No chest pain; edema; No palpitations Gastrointestinal: No abdominal pain, No constipation, No diarrhea Genitourinary: No discharge, No dysuria Musculoskeletal: No back pain, No joint pain Past Cxucafl-Dylnqu-Irlsyt Hx Patient Social History Alcohol Use: Denies Use Recreational Drug Use: No Type Used: Cigars, Cigarettes 2nd Hand Smoke Exposure: No Recent Hopitalizations: No Physical Abuse: No Sexual Abuse: No Immunizations Up To Date Tetanus Booster (TDap): Unknown Date of Pneumonia Vaccine: Apr 20, 2016 Date of Influenza Vaccine: Jan 18, 2018 Seasonal Allergies Seasonal Allergies: No Past Medical History Surgeries: No Respiratory: Yes Sleep Apnea, COPD Currently Using CPAP: Yes Cardiac: Yes High Cholesterol, Hypertension Neurological: Yes Neuropathy Genitourinary: No Gastrointestinal: No Musculoskeletal: Yes (CHRONIC GENERALIZED PAIN ) Arthritis, Fibromyalgia Endocrine: Yes (MORBID OBESITY) Diabetes, Insulin dep HEENT: No Cancer: No Psychosocial: No Integumentary: Yes (CHRONIC LEG WOUNDS) Blood Disorders: No Family Medical History Heart Disease, Cancer, CAD Over 55 Years Old, Diabetes, Hypertension, Stroke, Vascular Disease Physical Exam Vital Signs Vital Signs - First Documented 08/27/18 08/27/18 13:33 14:02 Temp 96.8 Pulse 113 Resp 22 Pulse Ox 95 O2 Delivery OxyMask O2 Flow Rate 30.00 Capillary Refill : Height, Weight, BMI Height: 5'10.00" Weight: 388lbs. 8.0oz. 176.798693ub; 56.3 BMI Method:Stated General Appearance: moderate distress, obese HEENT: PERRL/EOMI, normal ENT inspection, TMs normal, pharynx normal Neck: supple, normal inspection Cardiovascular: normal peripheral pulses, regular rate, rhythm, other (2+ bilateral lower pedal edema) Respiratory: chest non-tender, respiratory distress (mild to moderate), decreased breath sounds, accessory muscle use (mild to moderate) Peripheral Pulses: 2+ Radial Pulses (R), 2+ Radial Pulses (L) Gastrointestinal: normal bowel sounds, non tender, soft Extremities: normal inspection, no pedal edema, normal capillary refill Neurologic/Psychiatric: alert, normal mood/affect, oriented x 3 Skin: normal color, other [place] Coma Score Best Eye Response: (4) Open Spontaneously Best Verbal Response: (5) Oriented Best Motor Response: (6) Obeys Commands [place] Total: 15 Progress/Results/Core Measures Results/Orders Lab Results Laboratory Tests Test 08/27/18 13:41 08/27/18 13:45 08/27/18 14:12 08/27/18 14:35 Range/Units Glucometer 60 *L 96 71 70-110 MG/DL White Blood Count 14.4 H 4.3-11.0 10^3/uL Red Blood Count 5.35 4.35-5.85 10^6/uL Hemoglobin 14.7 13.3-17.7 G/DL Hematocrit 46 40-54 % Mean Corpuscular Volume 86 80-99 FL Mean Corpuscular Hemoglobin 28 25-34 PG Mean Corpuscular Hemoglobin Concent 32 32-36 G/DL Red Cell Distribution Width 18.6 H 10.0-14.5 % Platelet Count 145 130-400 10^3/uL Mean Platelet Volume 10.7 H 7.4-10.4 FL Neutrophils (%) (Auto) 90 H 42-75 % Lymphocytes (%) (Auto) 4 L 12-44 % Monocytes (%) (Auto) 6 0-12 % Eosinophils (%) (Auto) 0 0-10 % Basophils (%) (Auto) 0 0-10 % Neutrophils # (Auto) 12.9 H 1.8-7.8 X 10^3 Lymphocytes # (Auto) 0.5 L 1.0-4.0 X 10^3 Monocytes # (Auto) 0.8 0.0-1.0 X 10^3 Eosinophils # (Auto) 0.1 0.0-0.3 10^3/uL Basophils # (Auto) 0.0 0.0-0.1 10^3/uL Neutrophils % (Manual) 75 % Lymphocytes % (Manual) 8 % Monocytes % (Manual) 4 % Eosinophils % (Manual) 1 % Basophils % (Manual) 0 % Band Neutrophils 12 % Anisocytosis SLIGHT Prothrombin Time 17.1 H 12.2-14.7 SEC INR Comment 1.3 0.8-1.4 Activated Partial Thromboplast Time 31 24-35 SEC Urine Color YELLOW Urine Clarity CLEAR Urine pH 8 5-9 Urine Specific [place] 1.015 L 1.016-1.022 Urine Protein 2+ H NEGATIVE Urine Glucose (UA) NEGATIVE NEGATIVE Urine Ketones NEGATIVE NEGATIVE Urine Nitrite NEGATIVE NEGATIVE Urine Bilirubin NEGATIVE NEGATIVE Urine Urobilinogen 4 H NORMAL MG/DL Urine Leukocyte Esterase NEGATIVE NEGATIVE Urine RBC (Auto) NEGATIVE NEGATIVE Urine RBC RARE /HPF Urine WBC RARE /HPF Urine Squamous Epithelial Cells 0-2 /HPF Urine Crystals NONE /LPF Urine Bacteria NEGATIVE /HPF Urine Casts NONE /LPF Urine Mucus NEGATIVE /LPF Urine Culture Indicated NO Blood Gas Puncture Site UNK Blood Gas Patient Temperature 96.8 Arterial Blood pH 7.45 H 7.37-7.43 Arterial Blood Partial Pressure CO2 51 H 35-45 MMHG Arterial Blood Partial Pressure O2 129 H 79-93 MMHG Arterial Blood HCO3 35 H 23-27 MMOL/L Arterial Blood Total CO2 37.0 H 21.0-31.0 MMOL/L Arterial Blood Oxygen Saturation 97 94-100 % Arterial Blood Base Excess 10.6 H -2.5-2.5 MMOL/L Vitaly Test UNK Blood Gas Ventilator Setting NA Blood Gas Inspired Oxygen UNK Sodium Level 142 135-145 MMOL/L Potassium Level 2.9 L 3.6-5.0 MMOL/L Chloride Level 96 L 98-107 MMOL/L Carbon Dioxide Level 31 21-32 MMOL/L Anion Gap 15 H 5-14 MMOL/L Blood Urea Nitrogen 20 H 7-18 MG/DL Creatinine 1.16 0.60-1.30 MG/DL Estimat Glomerular Filtration Rate > 60 BUN/Creatinine Ratio 17 Glucose Level 57 *L 70-105 MG/DL Lactic Acid Level 2.37 *H 0.50-2.00 MMOL/L Calcium Level 10.7 H 8.5-10.1 MG/DL Corrected Calcium 10.4 H 8.5-10.1 MG/DL Magnesium Level 1.7 L 1.8-2.4 MG/DL Total Bilirubin 1.8 H 0.1-1.0 MG/DL Aspartate Amino Transf (AST/SGOT) 25 5-34 U/L Alanine Aminotransferase (ALT/SGPT) 17 0-55 U/L Alkaline Phosphatase 120 40-136 U/L Total Creatine Kinase 130 30-200 U/L Troponin I < 0.028 <0.028 NG/ML B-Type Natriuretic Peptide 137.7 H <100.0 PG/ML Total Protein 7.7 6.4-8.2 GM/DL Albumin 4.4 3.2-4.5 GM/DL My Orders Orders - HARMAN ZUNIGA Accucheck Stat ONCE (08/27/18 13:37) D50w (Emergency) Syringe (Dextrose 50% 5 (08/27/18 13:45) Cbc With Automated Diff (08/27/18 13:37) Comprehensive Metabolic Panel (08/27/18 13:37) Blood Culture (08/27/18 13:37) Sputum Culture (08/27/18 13:37) Urinalysis (08/27/18 13:37) Urine Culture (08/27/18 13:37) Protime With Inr (08/27/18 13:37) Partial Thromboplastin Time (08/27/18 13:37) Chest 1 View, Ap/Pa Only (08/27/18 13:37) Ed Iv/Invasive Line Start (08/27/18 13:37) Ed Iv/Invasive Line Start (08/27/18 13:37) Troponin I (08/27/18 13:37) Vital Signs Adult Sepsis Patie Q15M (08/27/18 13:37) O2 (08/27/18 13:37) Remove Rings In Anticipation O (08/27/18 13:37) Lactic Acid Analyzer (08/27/18 13:37) Ns Iv 1000 Ml (Sodium Chloride 0.9%) (08/27/18 13:37) Cefepime Injection (Maxipime Injection) (08/27/18 13:45) Ekg Tracing (08/27/18 13:37) Continuous Ekg Monitoring (08/27/18 13:37) Arterial Blood Gas (08/27/18 13:37) Creatine Kinase (08/27/18 13:39) Catheter(Urinary) Insert & Ass 03,15 (08/27/18 13:39) Manual Differential (08/27/18 13:45) Albuterol/Ipra Inhalation Soln (Duoneb I (08/27/18 14:30) Svn Small Volume Nebulizer (08/27/18 14:17) Magnesium (08/27/18 14:18) Potassium Cl 10meq/50ml Ivpb (Kcl 10 Meq (08/27/18 14:30) D5 1/2 Ns W/Kcl 10 Meq/L (Dextrose 5%/0. (08/27/18 14:30) Accucheck Stat ONCE (08/27/18 14:28) D5 1/2 Ns 1000 Ml Iv Solution (Dextrose (08/27/18 15:00) Magnesium 1 Gm/100 Ml Ivpb (Magnesium Celeste (08/27/18 15:00) Medications Given in ED Current Medications Medications Dose Ordered Sig/[place] Route Start Time Stop Time Status Last Admin Dose Admin Albuterol/ Ipratropium 3 ml ONCE ONCE INH 08/27/18 14:30 08/27/18 14:31 DC 08/27/18 14:28 3 ML Cefepime HCl 1000 mg/Sterile Water 10 ml @ 200 mls/hr ONCE ONCE IV 08/27/18 13:45 08/27/18 13:47 DC 08/27/18 14:47 200 MLS/HR Dextrose 50 ml ONCE ONCE IV 08/27/18 13:45 08/27/18 13:46 DC 08/27/18 13:45 50 ML Magnesium Sulfate/ Dextrose 100 ml @ 100 mls/hr ONCE ONCE IV 08/27/18 15:00 08/27/18 15:59 DC 08/27/18 15:46 100 MLS/HR Potassium Chloride 50 ml @ 50 mls/hr ONCE ONCE IV 08/27/18 14:30 08/27/18 15:29 DC 08/27/18 14:47 50 MLS/HR Vital Signs/I&O 08/27/18 08/27/18 08/27/18 13:33 14:02 14:28 Temp 96.8 Pulse 113 116 109 Resp 22 31 34 B/P (MAP) Pulse Ox 95 93 93 O2 Delivery OxyMask O2 Flow Rate 30.00 30.00 FSBG Bedside Testing Finger Stick Blood Glucose: 60 Blood Glucose Action Taken: daphne Progress Progress Note : Time: 14:26 Progress Note Given D50 and recheck sugar. If it still low we'll keep him on D5 half normal saline. His potassium was 2.9 so was given some IV potassium. Obtained a septic workup. Chest x-ray demonstrates some pulmonary congestion possible CHF exacerbation. CO2 retention on ABG consistent with COPD. Were going to give him a DuoNeb. He's on BiPAP 30% FiO2 and oxygenating in the 96-98% range. He is much more relaxed now. Check a CPK since he was down for about 5 hours. The lactate is elevated however we'll cautiously give fluids until we see what the BNP is. Blood pressure is significantly elevated on arrival but now it's 117/70. Cardiac catheterization 2009 demonstrating nonobstructive coronaries. Initial ECG Impression Date: August 27, 2018 Initial ECG Impression Time: 14:09 Initial ECG Rate: 114 Initial ECG Rhythm: S.Tach Initial ECG Intervals: Normal Initial ECG Impression: Normal, Nonspecific Changes Comment No ST elevation or depression. Sinus tachycardia. Modest respiratory artifact. Diagnostic Imaging Diagonstic Imaging: Xray Plain Films/CT/US/NM/MRI: chest (1v) Comments NAME: KEISHA [facility]ECERRIL [facility] REC#: [id number] PT STATUS: REG ER : 1955 PHYSICIAN: HARMAN ZUNIGA MD ADMIT DATE: 08/27/18/ER Draft Date of Exam:08/27/18 CHEST 1 VIEW, AP/PA ONLY INDICATION: Fall, chest pain. COMPARISON: 07/07/2018. FINDINGS: Single view of the chest demonstrates cardiac enlargement with central vascular congestion. Probable small effusion is seen in the right base. There is no pneumothorax. No obvious rib fracture. IMPRESSION: 1. Cardiac enlargement with central vascular congestion. 2. Probable effusion right lung base. 3. No pneumothorax. Dictated on workstation # [id number] Dict: 08/27/18 1412 Trans: 08/27/18 1419 [id number] Interpreted by: TIERNEY OATES Electronically signed by: Reviewed: Reviewed by Me Focused Exam Lactate Level 08/27/18 13:45: Lactic Acid Level 2.37*H Lactic Acid Level Laboratory Tests Test 08/27/18 13:45 Lactic Acid Level 2.37 MMOL/L (0.50-2.00) *H Departure Communication (Admissions) Time/Spoke to Admitting Phy: 15:[address] Martinez and she would like pulmonology and cardiology consult. She is okay with cefepime and ICU placement. Time/Spoke to Consulting Phy: 15:30 Discussed the case with Dr. Perez agrees to consult. Discussed case with Dr. Nicole he's come down to the ER and seen the patient. Okay with cefepime, BiPAP. Impression Primary Impression: COPD with acute exacerbation Additional Impressions: Pneumonia Qualified Codes: J18.9 - Pneumonia, unspecified organism Respiratory failure with hypoxia and hypercapnia Qualified Codes: J96.21 - Acute and chronic respiratory failure with hypoxia; J96.22 - Acute and chronic respiratory failure with hypercapnia Morbid obesity Hypoglycemia Disposition: ADMITTED INPATIENT Condition: Stable Admissions Decision to Admit Reason: Admit from ER (General) Decision to Admit/Date: August 27, 2018 Time/Decision to Admit Time: 15:24 Departure-Patient Inst. Referrals: ÁNGEL SPIVEY MD (PCP) Primary Care Physician KATHYA FISCHER (Family) Primary Care Physician HARMAN ZUNIGA August 27, 2018 14:17
--- NOTE | 2018-08-27 14:20 | Diagnostic Imaging Report ---
INDICATION: Fall, chest pain. COMPARISON: 07/07/2018. FINDINGS: Single view of the chest demonstrates cardiac enlargement with central vascular congestion. Probable small effusion is seen in the right base. There is no pneumothorax. No obvious rib fracture. IMPRESSION: 1. Cardiac enlargement with central vascular congestion. 2. Probable effusion right lung base. 3. No pneumothorax. Dictated by: Dictated on workstation # [id number]
[2018-08-27 14:23] LABS: GLUCOSE 57 MG/DL (70-105)
[2018-08-27] MEDS ORDERED: RT-ALBUTEROL/IPRATROPIUM 3 ML (DUONEB) VIAL INH ONE (14:30)
[2018-08-27] MEDS ORDERED: POTASSIUM CL 10MEQ/50ML IVPB 50 ML IV ONE (14:30)
[2018-08-27] MEDS ORDERED: D5 1/2 NS W/KCL 10 MEQ/L 1,000 ML IV SCH (14:30)
[2018-08-27 14:36] LABS: ANISOCYTOSIS SLIGHT; BAND NEUTROPHILS 12 %; BASOPHILS % (MANUAL) 0 %; EOSINOPHILS % (MANUAL) 1 %; LYMPHOCYTES % (MANUAL) 8 %; MONOCYTES % (MANUAL) 4 %; NEUTROPHILS % (MANUAL) 75 %
--- OUTSIDE RECORDS SUMMARY | 2018-08-27 14:41 | XMS REPORT ---
Author Author Migration, Doctor Organization [facility] Address Unknown Phone Unavailable Care Team Providers Care [facility] Orderly Name Role Phone Migration, Doctor Unavailable Unavailable PROBLEMS Type Condition ICD9-CM Code MGS73-NT Code Onset Dates Condition Status SNOMED Code Problem Obstructive sleep apnea G47.33 Active 09929948 Problem Stress incontinence of urine N39.3 Active 97553799 Problem Uncontrolled type 2 diabetes mellitus without complication, without long-term current use of insulin E11.65 Active 886288534 Problem Hypertension, benign I10 Active 29488760 Problem Fibromyalgia M79.7 Active 559719844 Problem Arthritis M19.90 Active 2594841 Problem 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 Active 99905804 Problem Polyneuropathy G62.9 Active 28793802 Problem intermediate current use of insulin Z79.4 Active 718939028 Problem Type 2 diabetes mellitus with 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 E11.65 Active 288744137 Problem Constipation K59.00 Active 93779919 Problem Non-pressure chronic ulcer of unspecified part of right lower leg with unspecified severity L97.919 Active 609456382 Problem Neuropathy G62.9 Active 456372677 Problem 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 [id number] [address] Jul, [facility] [address] [facility] [id number], [place] [address] 4[address] Jul, [facility] [address], [place] [address] 9703 Jul, [facility] [address], [place] [address] 1742 Jul, [facility] [address], [place] [address] 4136 Jul, Uncontrolled type 2 diabetes mellitus without complication, without long-term current use of insulin E11.65 and Uncontrolled type 2 diabetes mellitus with 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 E11.65 [facility] [id number] [place] [address] 70990- 0809 Jul, [facility] [id number] [place] [address] 70293- 5011 Jul, Uncontrolled type 2 diabetes mellitus without complication, without long-term current use of insulin E11.65 and Hypertension, benign I10 [facility] [id number] [place] [address] 20631- 5461 Jul, [facility] [address] [id number], [place] [address] 0548 Jul, [facility] [id number] [place] [address] 16083- 0642 Jun, Obstructive sleep apnea G47.33 ; Hypertension, benign I10 ; Type 2 diabetes mellitus with 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 E11.65 ; Morbid obesity E66.01 and Non-pressure chronic ulcer of unspecified part of right lower leg with unspecified severity L97.919 [facility] [address], [place] [address] 2[address] Jun, [facility] [address], [place] [address] 6521 Jun, [facility] [address], [place] [address] 0196 Jun, [facility] [address], [place] [address] 4939 Jun, Morbid obesity E66.01 and Uncontrolled type 2 diabetes mellitus with 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 E11.65 [facility] [address], [place] [address] 1295 Jun, Uncontrolled type 2 diabetes mellitus with 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 E11.65 [facility] [address], [place] [address] May, [facility] [address], [place] [address] 2737 May, [facility] [id number] [place] [address] 48892- 9230 May, [facility] [id number] [place] [address] 22940- 6061 May, Renal insufficiency N28.9 ; BMI 50.0-59.9, adult Z68.43 and Weight gain, abnormal R63.5 [facility] [address], [place] [address] 9604 May, Renal insufficiency N28.9 ; BMI 50.0-59.9, adult Z68.43 and Weight gain, abnormal R63.5 [facility] [id number] [place] [address] 91765- 5677 Apr, Uncontrolled type 2 diabetes mellitus with 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 E11.65 and Weight gain, abnormal R63.5 [facility] [address], [place] [address]- 8118 Apr, [facility] [address], [place] [address]- 4246 Apr, [facility] [address], [place] [address]- 6494 Apr, Uncontrolled type 2 diabetes mellitus with 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 E11.65 and Diabetes type 2, controlled E11.9 [facility] [address], [place] [address]- 2051 Apr, [facility] [address], [place] [address]- 4124 Apr, [facility] [address], [place] [address]- 4539 Apr, [facility] [id number] [place] [address] 813005- 9120 Mar, Uncontrolled type 2 diabetes mellitus without complication, without long-term current use of insulin E11.65 and BMI 50.0-59.9, adult Z68.43 [facility] [id number] [place] [address] 72946- 0933 Mar, [facility] [id number] [place] [address] 10813- 7194 Mar, [facility] [id number] [place] [address] 47357- 2141 Mar, [facility] [id number] [place] [address] 524981- 5983 Mar, [facility] [id number] [place] [address] 46904- 3463 Mar, Uncontrolled type 2 diabetes mellitus with hyperglycemia E11.65 and Diabetic polyneuropathy associated with type 2 diabetes mellitus E11.42 [facility] [id number] [place] [address] 38199- 8068 Feb, [facility] [address], [place] [address]- 3609 Feb, [facility] [id number] [place] [address] 60177- 3061 Feb, [facility] [address], [place] [address]- 8831 Feb, [facility] [id number] [place] [address] 07609- 9739 Feb, [facility] [address] [address] [address]66 Feb, Fibromyalgia M79.7 and Uncontrolled type 2 diabetes mellitus without complication, without long-term current use of insulin E11.65 [facility] [id number] [place] [address] 95688- 5953 Jan, [facility] [id number] [place] [address] 41728- 5165 Jan, [facility] [id number] [place] [address] 40557- 3386 Jan, Uncontrolled type 2 diabetes mellitus without complication, without long-term current use of insulin E11.65 [facility] [id number] [place] [address] 33883- 4493 Jan, [facility] [id number] [place] [address] 55143- 3768 Dec, Therapeutic drug monitoring Z51.81 and Controlled type 2 diabetes mellitus without complication, without long-term current use of insulin E11.9 [facility] [id number] [place] [address] 90844- 6154 Dec, Renal insufficiency N28.9 [facility] [id number] [place] [address] 23580- 2261 Dec, [facility] [id number] [place] [address] 84177- 1844 Dec, Dizziness R42 [facility] [id number] [place] [address] 26291- 1763 Dec, Dizziness R42 and Encounter for immunization Z23 [facility] [id number] [place] [address] 18346- 3458 Dec, Therapeutic drug monitoring Z51.81 and Controlled type 2 diabetes mellitus without complication, without long-term current use of insulin E11.9 [facility] [id number] [place] [address] 03970- 8523 Dec, [facility] [id number] [place] [address] 54186- 7663 Dec, [facility] [id number] [place] [address] 27124- 0065 Dec, [facility] [id number] [place] [address] 35182- 4680 Nov, [facility] [id number] [place] [address] 03485- 6303 Nov, Therapeutic drug monitoring Z51.81 [facility] [id number] [place] [address] 33365- 7176 Nov, [facility] [id number] [place] [address] 39707- 3712 Nov, Therapeutic drug monitoring Z51.81 ; Fibromyalgia M79.7 and Controlled type 2 diabetes mellitus without complication, without long-term current use of insulin E11.9 [facility] [id number] [place] [address] 41786- 6445 Nov, Type 2 diabetes mellitus with hyperglycemia E11.65 [facility] [id number] [place] [address] 18484- 8750 Nov, [facility] [id number] [place] [address] 41127- 6178 Nov, [facility] [id number] [place] [address] 58906- 8369 Nov, Type 2 diabetes mellitus with hyperglycemia E11.65 [facility] [id number] [place] [address] 13551- 8005 Nov, [facility] [id number] [place] [address] 07330- 8688 Nov, [facility] [id number] [place] [address] 34940- 2581 Nov, Constipation K59.00 [facility] [id number] [place] [address] 70700- 2650 Oct, Diabetes type 2, controlled E11.9 [facility] [id number] [place] [address] 80833- 9464 Oct, Type 2 diabetes mellitus with hyperglycemia E11.65 ; intermediate card tender current use of insulin Z79.4 and Neuropathy G62.9 [facility] [address], [place] [address]- 2037 Oct, [facility] [address], [place] [address]- 8990 Oct, [facility] [address], [place] [address]- 6112 Oct, [facility] [address], [place] [address]- 7861 Oct, [facility] [id number] [place] [address] 53408- 0982 Oct, [facility] [id number] [place] [address] 29421- 8500 Oct, [facility] [id number] [place] [address] 16451- 9356 Oct, [facility] [address], [place] [address]- 2066 Sep, [facility] [address], [place] [address]- 7991 Sep, Uncontrolled type 2 diabetes mellitus without complication, without long-term current use of insulin E11.65 [facility] [address], [place] [address]- 1154 Sep, Hypertension, benign I10 ; Fibromyalgia M79.7 ; Controlled type 2 diabetes mellitus without complication, without long-term current use of insulin E11.9 and Uncontrolled type 2 diabetes mellitus without complication, without long-term current use of insulin E11.65 [facility] [address], [place] [address]- 0207 Sep, [facility] [address], [place] [address]- 5923 Sep, Uncontrolled type 2 diabetes mellitus without complication, without long-term current use of insulin E11.65 [facility] [id number] [place] [address] 62618- 2153 Sep, [facility] [id number] [place] [address] 56784- 4158 Sep, [facility] [id number] [place] [address] 00991- 4567 Sep, Uncontrolled type 2 diabetes mellitus without complication, without long-term current use of insulin E11.65 and Fibromyalgia M79.7 [facility] [id number] [place] [address] 71406- 5891 August, [facility] [id number] [place] [address] 60907- 3850 August, [facility] [id number] [place] [address] 50809- 4914 August, [facility] [id number] [place] [address] 50900- 7580 August, Fibromyalgia M79.7 [facility] [id number] [place] [address] 89085- 4375 Jul, Hypertension, benign I10 [facility] [id number] [place] [address] 83729- 7816 Jul, Fibromyalgia M79.7 [facility] [id number] [place] [address] 21311- 3384 Jul, [facility] [id number] [place] [address] 64760- 4438 Jun, [facility] [id number] [place] [address] 95597- 8028 Jun, Hypertension, benign I10 ; Arthritis M19.90 ; intermediate current use 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 Z79.891 and Uncontrolled type 2 diabetes mellitus without complication, without long-term current use of insulin E11.65 [facility] [address], [place] [address]70 Jun, Acute nasopharyngitis J00 and BMI 50.0-59.9, adult Z68.43 [facility] [id number], [place] [address]- 5609 Jun, Fibromyalgia M79.7 [facility] [id number] [place] [address] 00359 2546 14 May, 2017 [facility] [id number] [place] [address] 87752 2546 May, Fibromyalgia M79.7 [facility] [id number] [place] [address] 96712 2548 Apr, Fibromyalgia M79.7 [facility] [id number] [place] [address] 24987- 2776 Apr, [facility] [id number] [place] [address] 43917- 7392 Apr, [facility] [id number] [place] [address] 67047- 5730 Apr, Arthritis M19.90 [facility] [id number] [place] [address] 90475- 1581 Apr, Arthritis M19.90 [facility] [id number] [place] [address] 32523- 6638 Apr, Arthritis M19.90 and Controlled type 2 diabetes mellitus without complication, without long-term current use of insulin E11.9 [facility] [id number] [place] [address] 52252- 9783 Apr, [facility] [id number] [place] [address] 81896- 1979 Apr, Fibromyalgia M79.7 [facility] [id number] [place] [address] 47346 2546 Mar, [facility] [id number] [place] [address] 30721- 0056 Mar, [facility] [id number] [place] [address] 30791- 0072 Mar, Fibromyalgia M79.7 [facility] [id number] [place] [address] 11250- 8255 Feb, [facility] [id number] [place] [address] 44573- 0456 Feb, [facility] [address] 83629- 2879 Feb, [facility] [address] 62906- 6488 Feb, Fibromyalgia M79.7 [facility] [address] 18681- 1145 Feb, Diabetes type 2, uncontrolled E11.65 and Encounter for immunization Z23 [facility] [address] 34984- 2637 Jan, [facility] [address] 45882- 5285 Jan, Fibromyalgia M79.7 [facility] [address] 43436- 2656 Dec, [facility] [id number] [place] [address] 27510- 1535 Dec, Fibromyalgia M79.7 [facility] [id number] [place] [address] 83095- 1234 Nov, [facility] [id number] [place] [address] 85601- 5913 Nov, [facility] [id number] [place] [address] 02080- 5716 Nov, 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 [id number] [address]- 5944 Oct, Diabetes type 2, uncontrolled E11.65 [facility] [address] [facility] [id number] [place] [address] 32340- 9616 Oct, Diabetes type 2, uncontrolled E11.65 ; Polyneuropathy G62.9 and Pain in right wrist M25.531 [facility] [address] [facility] [id number] [place] [address] 49419- 0505 Oct, [facility] [address] [facility] [id number] [place] [address] 22625- 7215 Oct, Pain in left shoulder M25.512 [facility] [id number] [place] [address] 49246- 2756 Sep, [facility] [id number] [place] [address] 57392- 1765 Sep, Pain in left shoulder M25.512 [facility] [address], [place] [address]- 7080 Sep, [facility] [id number] [place] [address] 14905- 9689 August, Pain in left shoulder M25.512 [facility] [address], [place] [address]- 3756 Jul, [facility] [address], [place] [address]- 0448 Jul, [facility] [address], [place] [address]- 8113 Jul, Pain in left shoulder M25.512 [facility] [address] [facility] [id number] 1516 Jun, [facility] [address], [place] [address]- 9306 Jun, [facility] [address], [place] [address]- 1838 17 Jun, 2016 Diabetes type 2, uncontrolled E11.65 ; Fibromyalgia M79.7 and Arthritis M19.90 [facility] [address] [place] [address] 36545 2546 14 Jun, 2016 Pain in left shoulder M25.512 [facility] [id number] [place] [address] 58228- 1416 May, [facility] [id number] [place] [address] 34919- 5886 May, Diabetes type 2, controlled E11.9 [facility] [id number] [place] [address] 36669- 0116 May, [facility] [id number] [place] [address] 16667- 5648 May, Uncontrolled type 2 diabetes mellitus without complication, without long-term current use of insulin E11.65 [facility] [address], [place] [address]- 0030 May, Pain in left shoulder M25.512 [facility] [id number] [place] [address] 04524- 1951 May, Diabetes type 2, controlled E11.9 and Uncontrolled type 2 diabetes mellitus without complication, without long-term current use of insulin E11.65 [facility] [address], [place] [address]- 8091 Apr, [facility] [address], [place] [address] 2543 Apr, [facility] [id number], [place] [address]- 0366 Mar, [facility] [address] 4466 Mar, [facility] [id number] [place] [address] 39661- 3361 Mar, [facility] [address] [id number] [place] [address]- 1991 Feb, [facility] [address] [id number] [place] [id number] Feb, Dental examination Z01.20 [facility] [address] [id number] [place] [address]- 2113 Jan, [facility] [address] [id number] [place] [address]- 9406 Dec, [facility] [address] [id number] [place] [address]- 9820 Dec, [facility] [address] [id number] [place] [address]- 4763 Dec, [facility] [address] [id number] [place] [address]- 0443 Dec, Diabetes type 2, controlled E11.9 [facility] [address] [id number] [place] [address]- 4171 Nov, [facility] [address] [id number] [place] [address]- 0862 Nov, [facility] [address] [id number] [place] [address]- 6536 Nov, [facility] [address] [id number] [place] [address]- 9517 Nov, [facility] [address] [id number] [address]- 6686 Oct, [facility] [address] [id number] [place] [address]- 4372 Oct, [facility] [address] [id number] [place] [address]- 0297 Oct, [facility] [address] [id number], [place] [address]- 3341 Sep, [facility] [address], [place] [address]- 5266 Sep, Diabetes type 2, controlled E11.9 [facility] [id number] [place] [address] Sep, Diabetes type 2, controlled E11.9 [facility] [id number] [place] [address], [place] [address] August, [facility] [id number] [place] [address] August, [facility] [id number] [place] [phone] August, Type 2 diabetes mellitus without complication E11.9 and Pain in left shoulder M25.512 [facility] [id number] [place] [address], [place] [address] Jul, [facility] [id number] [place] [address] Jul, Diabetes type 2, controlled E11.9 and Hypertension, benign I10 [facility] [id number] [place] [address] Jun, [facility] [address] [id number] [address] Jun, [facility] [id number] [place] [address]- [address] Jun, Diabetes 250.00 [facility] [id number], [place] [address] Jun, [facility] [address] [id number] [place] [address] 87314- 8378 May, Diabetes type 2, uncontrolled E11.65 [facility] [address], [place] [address] 2543 May, [facility] [id number] [place] [address] 16553- 0349 Apr, Type 2 diabetes mellitus without complication E11.9 [facility] [id number] [place] [address] 49255- 4984 Apr, Encounter for immunization Z23 [facility] [id number] [place] [address] 51011- 5747 Apr, [facility] [address] 72925- 4891 Mar, [facility] [id number] [place] [address] 69462- 7900 Mar, [facility] [address] 68249- 2056 Mar, [facility] [id number] [place] [address] 81797- 7648 Feb, [facility] [address] [address]37- 3214 Jan, [facility] [id number] [place] [address] 18400- 7539 Jan, [facility] [id number] [place] [address] 64797- 6393 Jan, [facility] [id number] [place] [address] 81372- 1793 Dec, Diabetes 250.00 and COPD (chronic obstructive pulmonary disease) 496 [facility] [id number] [place] [address] 63480- 3358 Dec, [facility] [id number] [place] [address] 84899- 2081 Dec, [facility] [id number] [place] [address] 45922- 5767 Nov, [facility] [id number] [place] [address] 79836- 4517 Oct, Diabetes 250.00 [facility] [address] [place] [address] 1508 Sep, [facility] [address], [place] [address]- 1102 Sep, [facility] [address], [place] [address]- 6710 Sep, [facility] [address], [place] [address]- 7541 Sep, Diabetes 250.00 [facility] [id number], [place] [address]- 1810 Sep, [facility] [id number] [place] [address] 24951- 0540 Sep, [facility] [address], [place] [address]- 3954 August, Hypertension, essential, benign 401.1 ; Coronary atherosclerosis of [place] coronary artery 414.01 and Diabetic neuropathy associated with type 2 diabetes mellitus 250.60 [facility] [address], [place] [address]- 5661 Jul, [facility] [address], [place] [address]- 2299 14 Jul, 2014 [facility] [address], [place] [address]- 1099 Jul, [facility] [address], [place] [address]- 3865 Jun, [facility] [address], [place] [address]- 8725 Jun, [facility] [address], [place] [address]- 7960 Jun, [facility] [address], [place] [address]- 5144 Jun, [facility] [address], [place] [address]- 4030 Jun, [facility] [place] [facility] [address] [id number] [place] [address]- 6156 May, 2014 [facility] [place] [facility] [address] [id number] [place] [address]- 3576 May, 2014 [facility] [place] [facility] [address] [id number] [place] [address]- 6016 May, 2014 [facility] [place] [facility] [address] [id number] [place] [address]- 3953 May, 2014 [facility] [place] [facility] [address] [id number] [place] [address]- 9530 May, [facility] [place] [facility] [address] [id number] [place] [address]- 3952 May, [facility] [place] [facility] [address] [id number] [place] [address]- 9019 May, [facility] [place] [facility] [address] [id number] [place] [address]- 9730 Apr, [facility] [place] [facility] [address] [id number] [place] [address]- 7023 Apr, [facility] [place] [facility] [address] [facility] [id number] [place] [address]- 8822 Apr, [facility] [place] [facility] [address] [facility] [id number] [place] [address]- 7409 Apr, [facility] [place] [facility] [address] [id number] [place] [address]- 8944 Mar, [facility] [place] [facility] [address] [id number] [place] [address]- 8763 Mar, [facility] [place] [facility] [address] [facility] [id number] [place] [address]- 3476 Mar, [facility] [place] [facility] [address] [facility] [id number] [place] [address]- 1926 Mar, [facility] [place] [facility] [address] [id number] [place] [address]- 7139 Feb, [facility] [place] [facility] [address] [id number] [place] [address]- 9754 Feb, [facility] [place] [facility] [address] [id number] [place] [address]- 8577 Feb, [facility] [place] [facility] [address] [id number] [place] [address]- 7005 Feb, [facility] [place] [facility] [address] [id number] [place] [address]- 8333 Feb, [facility] [place] [facility] [address] [id number] [place] [address]- 3396 Feb, [facility] [place] [facility] [address] [id number] [place] [address]- 5192 Feb, [facility] [place] [facility] [address] [id number] [place] [address]- 5189 Jan, [facility] [place] [facility] [address] [id number] [place] [address]- 6532 Jan, [facility] [place] [facility] [address] [id number] [place] [address]- 8816 23 Dec, 2013 [facility] [place] [facility] [address] [id number] [place] [address]- 3923 23 Dec, 2013 [facility] [place] [facility] [address] [id number] [place] [address]- 2543 10 Dec, 2013 [facility] [place] [facility] [address] [id number] [place] [address]- 2549 10 Dec, 2013 [facility] [place] [facility] [address] [id number] [place] [address]- 2548 04 Dec, 2013 [facility] [place] [facility] [address] [id number] [place] [address]- 2548 04 Dec, 2013 [facility] [place] [facility] [address] [id number] [place] [address]- 6537 Dec, [facility] [place] [facility] [address] [id number] [place] [address]- 3166 Dec, [facility] [place] [facility] [address] [id number] [place] [address]- 9766 Nov, [facility] [place] [facility] [address] [id number] [place] [address]- 3101 Nov, [facility] [place] [facility] [address] [id number] [place] [address]- 5004 Nov, [facility] [place] [facility] [address] [id number] [place] [address]- 1675 Nov, [facility] [place] [facility] [address] [id number] [place] [address]- 3458 Oct, [facility] [place] [facility] [address] [id number] [place] [address]- 5271 Oct, [facility] [place] [facility] [address] [id number] [place] [address]- 9001 Oct, [facility] [place] [facility] [address] [id number] [place] [address]- 4113 Oct, [facility] [place] [facility] [address] [id number] [place] [address]- 6356 Oct, [facility] [place] [facility] [address] [id number] [place] [address]- 9545 Oct, [facility] [place] [facility] [address] [id number] [place] [address]- 5918 Oct, [facility] [place] [facility] [address] [id number] [place] [address]- 0319 Oct, [facility] [place] [facility] [address] [id number] [place] [address]- 1469 Sep, [facility] [place] [facility] [address] [id number] [place] [address]- 0705 Sep, [facility] [place] [facility] [address] [id number], [place] [address]- 4201 August, [facility] [place] [facility] [address] [id number] [place] [address]- 8838 August, [facility] [place] [facility] [address] [id number] [place] [address]- 9194 Jul, [facility] [place] [facility] [address] [id number] [place] [address]- 5700 Jul, [facility] [place] [facility] [address] [id number] [place] [address]- 3611 Jul, [facility] [place] [facility] [address] [id number] [place] [address]- 8632 Jul, [facility] [place] [facility] [address] [id number] [place] [address]- 7660 Jul, [facility] [place] [facility] [address] [id number] [place] [address]- 0060 Jul, [facility] [place] [facility] [address] [id number] [place] [address]- 8211 Jul, [facility] [place] [facility] [address] [id number] [place] [address]- 2367 Jul, [facility] [place] [facility] [address] [id number] [place] [address]- 5154 Jun, [facility] [place] [facility] [address] [id number] [place] [address]- 1817 Jun, [facility] [place] [facility] [address] [id number], [place] [address]- 3007 Jun, [facility] [place] [facility] [address] [id number] [place] [address]- 9995 Jun, [facility] [place] [facility] [address] [id number] [place] [address]- 4644 May, [facility] [place] [facility] [address] [id number] [place] [address]- 5781 May, [facility] [place] [facility] [address] [id number] [place] [address]- 1087 Apr, [facility] [place] [facility] [address] [id number] [place] [address]- 8432 Apr, [facility] [place] [facility] [address] [id number] [place] [address]- 6493 Mar, [facility] [place] [facility] [address] [id number] [place] [address]- 0726 Mar, [facility] [place] [facility] [address] [id number] [place] [address]- 4176 Mar, [facility] [place] [facility] [address] [id number] [place] [address]- 6930 Mar, [facility] [place] [facility] [address] [id number] [place] [address]- 0912 Mar, [facility] [place] [facility] [address] [id number] [place] [address]- 1153 Mar, [facility] [place] [facility] [address] [id number] [place] [address]- 6204 Feb, [facility] [place] [facility] [address] [id number] [place] [address]- 5234 Feb, [facility] [place] [facility] [address] [id number] [place] [address]- 6446 Feb, [facility] [place] [facility] [address] [id number] [place] [address]- 1151 Feb, [facility] [place] [facility] [address] [id number] [place] [address]- 6009 Feb, [facility] [place] [facility] [address] [id number] [place] [address]- 8839 Feb, [facility] [place] [facility] [address] [id number] [place] [address]- 1743 Feb, [facility] [place] [facility] [address] [id number] [place] [address]- 7521 Feb, [facility] [place] [facility] [address] [id number] [place] [address]- 2772 15 Jan, 2013 [facility] [place] [facility] [address] [id number] [place] [address]- 4286 15 Jan, 2013 [facility] [place] [facility] [address] [id number] [place] [address]- 4718 14 Jan, 2013 [facility] [place] [facility] [address] [id number] [place] [address]- 6252 14 Jan, 2013 [facility] [place] [facility] [address] [id number] [place] [address]- 7077 18 Dec, 2012 [facility] [place] [facility] [address] [id number] [place] [address]- 7103 13 Dec, 2012 [facility] [place] [facility] [address] [id number] [place] [address]- 1143 2012 [facility] [place] [facility] [address] [id number] [place] [address]- 9560 Nov, [facility] [place] [facility] [address] [id number] [place] [address]- 4523 Nov, [facility] [place] [facility] [address] [id number], [place] [address]- 5481 Oct, [facility] [place] [facility] [address] [id number], [place] [address]- 2393 Oct, [facility] [place] [facility] [address] [id number], [place] [address]- 2448 Oct, [facility] [place] [facility] [address] [id number] [place] [address]- 7243 Sep, [facility] [place] [facility] [address] [id number], [place] [address]- 1797 Sep, [facility] [place] [facility] [address] [id number] [place] [address]- 8982 Sep, [facility] [place] [facility] [address] [id number] [place] [address]- 3727 Sep, [facility] [address] [id number] [place] [address]- 1375 Sep, [facility] [address] [id number] [place] [address]- 0384 Sep, [facility] [address] [id number] [place] [address]- 0083 August, [facility] [address] [id number] [place] [address]- 3935 August, [facility] [address] [id number] [place] [address]- 0421 August, [facility] [address] [id number] [place] [address]- 1845 August, [facility] [address] [id number] [place] [address]- 5351 August, [facility] [address] [id number] [place] [address]- 5974 August, [facility] [address] [id number] [place] [address]- 7938 August, [facility] [address] [id number] [place] [address]- 4747 Jul, [facility] [address] [id number] [place] [address]- 1401 Jul, [facility] [address] [id number] [place] [address]- 6910 Jun, [facility] [address] [id number] [place] [address]- 2389 Jun, [facility] [address] [id number] [place] [address]- 5509 May, [facility] [address] [id number] [place] [address]- 8326 May, [facility] [place] [facility] [address] [id number] [place] [address]- 1438 Apr, [facility] [place] [facility] [address] [id number] [place] [address]- 1591 Mar, [facility] [place] [facility] [address] [id number] [place] [address]- 3743 Mar, [facility] [place] [facility] [address] [id number] [place] [address]- 1370 Mar, [facility] [place] [facility] [address] [id number] [place] [address]- 8918 Mar, [facility] [place] [facility] [address] [id number] [place] [address]- 5147 Mar, [facility] [place] [facility] [address] [id number] [place] [address]- 4153 Mar, [facility] [place] [facility] [address] [id number] [place] [address]- 4727 Feb, [facility] [place] [facility] [address] [id number] [place] [address]- 0952 Feb, [facility] [place] [facility] [address] [id number] [place] [address]- 9242 Feb, [facility] [place] [facility] [address] [id number] [place] [address]- 5443 Feb, [facility] [place] [facility] [address] [id number], [place] [address]- 7056 Feb, [facility] [place] [facility] [address] [id number] [place] [address]- 1866 Feb, [facility] [place] [facility] [address] [id number] [place] [address]- 0645 Feb, [facility] [place] [facility] [address] [id number] [place] [address]- 0969 Feb, [facility] [place] [facility] [address] [id number], [place] [address]- 4099 Jan, [facility] [place] [facility] [address] [id number] [place] [address]- 2614 Jan, [facility] [place] [facility] [address] [id number] [place] [address]- 0266 28 Dec, 2011 [facility] [place] [facility] [address] [id number] [place] [address]- 0216 Dec, [facility] [place] [facility] [address] [id number] [place] [address]- 0793 Dec, [facility] [place] [facility] [address] [id number] [place] [address]- 2105 Dec, [facility] [place] [facility] [address] [id number] [place] [address]- 4945 Dec, [facility] [place] [facility] [address] [id number] [place] [address]- 1657 Nov, [facility] [place] [facility] [address] [id number] [place] [address]- 5963 Oct, [facility] [place] [facility] [address] [id number] [place] [address]- 6501 Oct, [facility] [place] [facility] [address] [id number] [place] [address]- 6108 Sep, [facility] [place] [facility] [address] [id number], [place] [address]- 7238 Sep, [facility] [place] [facility] [address] [id number], [place] [address]- 0846 Sep, [facility] [place] [facility] [address] [id number] [place] [address]- 1802 Sep, [facility] [place] [facility] [address] [id number] [place] [address]- 3656 Sep, [facility] [place] [facility] [address] [id number] [place] [address]- 8580 Sep, [facility] [place] [facility] [address] [id number] [place] [address]- 7036 Sep, [facility] [address] [id number] [place] [address]- 4595 Sep, [facility] [place] [facility] [address] [id number] [place] [address] 2546 August, [facility] [place] [facility] [address] [id number] [place] [address]- 1636 August, [facility] [place] [facility] [address] [id number] [place] [address]- 7276 August, [facility] [place] [facility] [address] [id number] [place] [address]- 1508 Jul, [facility] [place] [facility] [address] [id number] [place] [address]- 2006 Jul, [facility] [place] [facility] [address] [id number] [place] [address]- 6846 Jun, [facility] [place] [facility] [address] [id number] [place] [address]- 8673 Jun, [facility] [place] [facility] [address] [id number] [place] [address]- 5456 Jun, [facility] [place] [facility] [address] [id number] [place] [address]- 7026 Jun, [facility] [place] [facility] [address] [id number] [place] [address]- 0356 May, [facility] [place] [facility] [address] [id number] [place] [address]- 8866 May, [facility] [place] [facility] [address] [id number] [place] [address]- 1146 Apr, [facility] [place] [facility] [address] [id number] [place] [address]- 2546 Apr, [facility] [place] [facility] [address] [id number] [place] [address] Apr, [facility] [place] [facility] [address] [id number] [place] [address] 14 Mar, 2011 [facility] [place] [facility] [address] [id number] [place] [address] Mar, [facility] [place] [facility] [address] [id number] [place] [address] Mar, [facility] [place] [facility] [address] [id number] [place] [address] Feb, [facility] [place] [facility] [address] [id number] [place] [address] Feb, [facility] [place] [facility] [address] [id number] [place] [address] Feb, [facility] [place] [facility] [address] [id number] [place] [address] Feb, [facility] [place] [facility] [address] [id number], [place] [address] Jan, [facility] [place] [facility] [address] [id number] [place] [address] Jan, [facility] [place] [facility] [address] [facility] [id number], [place] [address] Jan, [facility] [place] [facility] [address] [id number], [place] [address] 16 Dec, 2010 [facility] [place] [facility] [address] [id number], [place] [address] Oct, [facility] [place] [facility] [address] [id number] [place] [address] Mar, [facility] [place] [facility] [address] [id number], [place] [address] Feb, [facility] [place] [facility] [address] [id number], [place] [address] 15 Feb, 2010 [facility] [place] [facility] [address] [facility] [id number], [place] [address] May, [facility] [address] [id number], [place] [address] Apr, [facility] [id number], [place] [address] Mar, [facility] [id number], [place] [address] Jan, [facility] [id number], [place] [address] Oct, [facility] [id number] [place] [address] Jul, [facility] [id number], [place] [address] Mar, [facility] [id number], [place] [address] Feb, [facility] [address] [id number], [place] [address] Jan, IMMUNIZATIONS No Known Immunizations SOCIAL HISTORY Never Assessed REASON FOR VISIT [facility] PLAN OF CARE VITAL SIGNS MEDICATIONS Unknown [...] obesity Medical History bao neuroma (Dr. Masters) Medical History pneumonia Surgical History tonsillectomy Hospitalization History surgeries Hospitalization History falls 11/01/2017 Hospitalization History [facility] Pneumonia 07/05-07/09
--- OUTSIDE RECORDS SUMMARY | 2018-08-27 14:42 | XMS REPORT ---
Author Author Migration, Doctor Organization [facility] Address Unknown Phone Unavailable Care Team Providers Care Personal Lines Underwriter Name Role Phone Migration, Doctor Unavailable Unavailable PROBLEMS Type Condition ICD9-CM Code [id number] Code Onset Dates Condition Status SNOMED Code Problem Obstructive sleep apnea G47.33 Active 83223847 Problem Stress incontinence of urine N39.3 Active 27047786 Problem Uncontrolled type 2 diabetes mellitus without complication, without long-term current use of insulin E11.65 Active 883886414 Problem Hypertension, benign I10 Active 86519119 Problem Fibromyalgia M79.7 Active 249803314 Problem Arthritis M19.90 Active 7959057 Problem 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 Active 15235300 Problem Polyneuropathy G62.9 Active 73522510 Problem residential current use of insulin Z79.4 Active 443762771 Problem Type 2 diabetes mellitus with hyperglycemia E11.65 Active 244293047 Problem Constipation K59.00 Active 54541083 Problem Non-pressure chronic ulcer of unspecified part of right lower leg with unspecified severity L97.919 Active 248645041 Problem Neuropathy G62.9 Active 906643958 Problem 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 Active 839040719 Problem Controlled type 2 diabetes mellitus without complication, without long -term current use of insulin E11.9 Active 481475010 Problem Other male erectile dysfunction N52.8 Active 384367496 Problem Uncontrolled type 2 diabetes mellitus with hyperglycemia E11.65 Active 805660500 Problem Diabetic polyneuropathy associated with type 2 diabetes mellitus E11.42 Active 89446907 Problem BMI 50.0-59.9, adult Z68.43 Active 544601638 ALLERGIES No Information ENCOUNTERS Encounter Location Date Diagnosis [facility] [address] [facility] [id number] [address] Jul, [facility] [address] [facility] [id number] [address] 0108 Jul, Uncontrolled type 2 diabetes mellitus without complication, without long-term current use of insulin E11.65 and Hypertension, benign I10 [facility] [address] [address] 6731 Jul, [facility] [id number] [place] [address] 65860- 7822 Jul, [facility] [id number] [place] [address] 61950- 3752 Jun, Obstructive sleep apnea G47.33 ; Hypertension, benign I10 ; Type 2 diabetes mellitus with hyperglycemia E11.65 ; Morbid obesity E66.01 and Non-pressure chronic ulcer of unspecified part of right lower leg with unspecified severity L97.919 [facility] [id number] [place] [address] 23444- 3041 Jun, [facility] [id number] [place] [address] 75130- 1572 Jun, [facility] [id number] [place] [address] 85762- 9027 Jun, [facility] [id number] [place] [address] 36735- 8873 Jun, Morbid obesity E66.01 and Uncontrolled type 2 diabetes mellitus with hyperglycemia E11.65 [facility] [address] [address] 8782 Jun, Uncontrolled type 2 diabetes mellitus with hyperglycemia E11.65 [facility] [id number] [place] [address] 07912- 2634 May, [facility] [address] [address] 3401 May, [facility] [id number] [place] [address] 50038- 2897 May, [facility] [address] [address] 1450 May, Renal insufficiency N28.9 ; BMI 50.0-59.9, adult Z68.43 and Weight gain, abnormal R63.5 [facility] [address] [address] 6[address] 06 May, 2018 Renal insufficiency N28.9 ; BMI 50.0-59.9, adult Z68.43 and Weight gain, abnormal R63.5 [facility] [address] [address] 0748 Apr, Uncontrolled type 2 diabetes mellitus with hyperglycemia E11.65 and Weight gain, abnormal R63.5 [facility] [address] [address] 9112 Apr, [facility] [id number] [place] [address] 16552- 5831 Apr, [facility] [id number] [address] 8001 Apr, Uncontrolled type 2 diabetes mellitus with hyperglycemia E11.65 and Diabetes type 2, controlled E11.9 [facility] [id number] [place] [address] 89409- 4694 Apr, [facility] [id number] [place] [address] 62339- 3864 Apr, [facility] [address] [address]- 4367 Apr, [facility] [address] [address]- 5342 Mar, Uncontrolled type 2 diabetes mellitus without complication, without long-term current use of insulin E11.65 and BMI 50.0-59.9, adult Z68.43 [facility] [address] [address]- 0912 Mar, [facility] [address] [address] 1506 Mar, [facility] [address] [address]- 0655 Mar, [facility] [address] [address]- 8986 Mar, [facility] [id number] [place] [address] 291179- 7296 Mar, Uncontrolled type 2 diabetes mellitus with hyperglycemia E11.65 and Diabetic polyneuropathy associated with type 2 diabetes mellitus E11.42 [facility] [id number] [place] [address] 90944- 9816 Feb, [facility] [id number] [address]- 0364 Feb, [facility] [id number] [place] [address] 82372- 2252 Feb, [facility] [id number] [address]- 6486 Feb, [facility] [id number] [place] [address] 93482- 4349 Feb, [facility] [address] [address]- 1435 Feb, Fibromyalgia M79.7 and Uncontrolled type 2 diabetes mellitus without complication, without long-term current use of insulin E11.65 [facility] [address] [address]- 4159 Jan, [facility] [address] [address]- 6788 Jan, [facility] [address] [address]- 254 Jan, Uncontrolled type 2 diabetes mellitus without complication, without long-term current use of insulin E11.65 [facility] [address] 8006 Jan, [facility] [address] [address]- 5649 Dec, Therapeutic drug monitoring Z51.81 and Controlled type 2 diabetes mellitus without complication, without long-term current use of insulin E11.9 [facility] [id number] [place] [address] 71686- 7338 Dec, Renal insufficiency N28.9 [facility] [id number] [place] [address] 16603- 3408 Dec, [facility] [address] 30263- 6010 Dec, Dizziness R42 [facility] [address] 91762- 0972 Dec, Dizziness R42 and Encounter for immunization Z23 [facility] [address] 10204- 8584 Dec, Therapeutic drug monitoring Z51.81 and Controlled type 2 diabetes mellitus without complication, without long-term current use of insulin E11.9 [facility] [address] 89281- 5026 Dec, [facility] [id number] [place] [address] 98906- 4823 Dec, [facility] [address] 46836- 2553 Dec, [facility] [id number] [place] [address] 32738- 7482 Nov, [facility] [id number] [place] [address] 99369- 6219 Nov, Therapeutic drug monitoring Z51.81 [facility] [id number] [place] [address] 47991- 9194 Nov, [facility] [address] 66295- 2646 Nov, Therapeutic drug monitoring Z51.81 ; Fibromyalgia M79.7 and Controlled type 2 diabetes mellitus without complication, without long-term current use of insulin E11.9 [place] [address] 48278- 0032 Nov, Type 2 diabetes mellitus with hyperglycemia E11.65 [facility] [address] [address]- 3861 Nov, [facility] [address] [address]- 6998 Nov, [facility] [id number] [place] [address] 09982- 5520 Nov, Type 2 diabetes mellitus with hyperglycemia E11.65 [facility] [address] [facility] [id number] [place] [address] 99744- 8152 Nov, [facility] [id number] [place] [address] 81979- 2116 Nov, [facility] [id number] [place] [address] 93100- 0965 Nov, Constipation K59.00 [facility] [id number] [place] [address] 58005- 4830 Oct, Diabetes type 2, controlled E11.9 [facility] [address] [place] [address] 46826- 7181 Oct, Type 2 diabetes mellitus with hyperglycemia E11.65 ; 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 and Neuropathy G62.9 [facility] [address] [address]- 2288 Oct, [facility] [address] [address]- 0142 Oct, [facility] [address] [address]- 6054 Oct, [facility] [address] [address]- 0770 Oct, [facility] [address] [address]- 4670 Oct, [facility] [id number] [address]- 1500 Oct, [facility] [id number] [address]- 6556 Oct, [facility] [id number] [place] [address] 37719- 4860 Sep, [facility] [id number] [place] [address] 42658- 4210 Sep, Uncontrolled type 2 diabetes mellitus without complication, without long-term current use of insulin E11.65 [facility] [address] [address]- 5038 Sep, Hypertension, benign I10 ; Fibromyalgia M79.7 ; Controlled type 2 diabetes mellitus without complication, without long-term current use of insulin E11.9 and Uncontrolled type 2 diabetes mellitus without complication, without long-term current use of insulin E11.65 [facility] [id number] [place] [address] 92175- 8260 Sep, [facility] [address] [address]- 7526 Sep, Uncontrolled type 2 diabetes mellitus without complication, without long-term current use of insulin E11.65 [facility] [address] [address]- 1675 Sep, [facility] [address] [address]- 1697 Sep, [facility] [id number] [place] [address] 43277- 2542 Sep, Uncontrolled type 2 diabetes mellitus without complication, without long-term current use of insulin E11.65 and Fibromyalgia M79.7 [facility] [address] [address]- 4753 August, [facility] [address] [address]- 8532 August, [facility] [id number] [place] [address] 47027- 5356 August, [facility] [id number] [place] [address] 33397- 0878 August, Fibromyalgia M79.7 [facility] [id number] [place] [address] 25904- 0856 Jul, Hypertension, benign I10 [facility] [address] 42177- 1467 Jul, Fibromyalgia M79.7 [facility] [id number] [place] [address] 70544- 0390 Jul, [facility] [address] 52147- 0190 Jun, [facility] [id number] [place] [address] 15796- 5231 Jun, Hypertension, benign I10 ; Arthritis M19.90 ; residential current use 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 Z79.891 and Uncontrolled type 2 diabetes mellitus without complication, without long-term current use of insulin E11.65 [facility] [id number] [place] [address] 09294 -9109 Jun, Acute nasopharyngitis J00 and BMI 50.0-59.9, adult Z68.43 [facility] [id number] [place] [address] 94247- 1862 Jun, Fibromyalgia M79.7 [facility] [id number] [place] [address] 46622- 7633 May, [facility] [id number] [place] [address] 16155- 9097 May, Fibromyalgia M79.7 [facility] [id number] [place] [address] 30257- 6558 Apr, Fibromyalgia M79.7 [facility] [id number] [place] [address] 74627- 5509 Apr, [facility] [id number] [place] [address] 04950 2549 Apr, [facility] [id number] [place] [address] 29097 2546 Apr, Arthritis M19.90 [facility] [id number] [place] [address] 31668 2546 Apr, Arthritis M19.90 [facility] [address] 90757 2546 Apr, Arthritis M19.90 and Controlled type 2 diabetes mellitus without complication, without long-term current use of insulin E11.9 [facility] [id number] [place] [address] 85330 2546 Apr, [facility] [id number] [place] [address] 81274 2546 Apr, Fibromyalgia M79.7 [facility] [id number] [place] [address] 22177 2541 Mar, [facility] [id number] [place] [address] 76843 2546 Mar, [facility] [id number] [place] [address] 06889 2544 Mar, Fibromyalgia M79.7 [facility] [id number] [place] [address] 53307 2546 Feb, [facility] [id number] [place] [address] 45482 2546 Feb, [facility] [address] [place] [address] 27615 2546 Feb, [facility] [id number] [place] [address] 10301 2546 Feb, Fibromyalgia M79.7 [facility] [id number] [place] [address] 14420 2546 Feb, Diabetes type 2, uncontrolled E11.65 and Encounter for immunization Z23 [facility] [id number] [address]- 3287 Jan, [facility] [id number] [place] [address] 48809- 8404 Jan, Fibromyalgia M79.7 [facility] [id number] [place] [address] 68485- 1884 Dec, [facility] [id number] [place] [address] 59711- 2813 Dec, Fibromyalgia M79.7 [facility] [id number] [place] [address] 43323- 6302 Nov, [facility] [id number] [place] [address] 77706- 0904 Nov, [facility] [id number] [place] [address] 30341- 0977 Nov, 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 and Polyneuropathy G62.9 [facility] [id number] [place] [address] 35104- 2029 Nov, [facility] [id number] [place] [address] 75699- 8503 Nov, [facility] [id number] [place] [address] 53966- 4881 Oct, Diabetes type 2, uncontrolled E11.65 [facility] [id number] [place] [address] 32511- 3959 Oct, Diabetes type 2, uncontrolled E11.65 ; Polyneuropathy G62.9 and Pain in right wrist M25.531 [facility] [id number] [place] [address] 02580- 2802 Oct, [facility] [id number] [place] [address] 43591- 5758 Oct, Pain in left shoulder M25.512 [facility] [id number] [address]- 5706 Sep, [facility] [id number] [place] [address] 42170- 2936 Sep, Pain in left shoulder M25.512 [facility] [id number] [place] [address] 27554- 8936 Sep, [facility] [id number] [place] [address] 10157- 8734 August, Pain in left shoulder M25.512 [facility] [address] [address]- 6666 Jul, [facility] [id number] [place] [address] 84866- 0436 Jul, [facility] [id number] [place] [address] 55499- 4468 Jul, Pain in left shoulder M25.512 [facility] [id number] [address]- 1440 Jun, [facility] [id number] [place] [address] 18274- 6456 Jun, [facility] [id number] [place] [address] 29817- 4308 Jun, Diabetes type 2, uncontrolled E11.65 ; Fibromyalgia M79.7 and Arthritis M19.90 [facility] [id number] [address]- 2133 Jun, Pain in left shoulder M25.512 [facility] [address] [address]- 8996 May, [facility] [id number] [place] [address] 34402- 2546 May, Diabetes type 2, controlled E11.9 [facility] [id number] [place] [address] 66710- 2686 May, [facility] [address] [address]- 4032 15 May, 2016 Uncontrolled type 2 diabetes mellitus without complication, without long-term current use of insulin E11.65 [facility] [address] [place] [address] 57162- 6382 15 May, 2016 Pain in left shoulder M25.512 [facility] [id number] [place] [address] 35465- 5186 03 May, 2016 Diabetes type 2, controlled E11.9 and Uncontrolled type 2 diabetes mellitus without complication, without long-term current use of insulin E11.65 [facility] [id number] [place] [address] 22124- 4737 Apr, [facility] [id number] [place] [address] 31981- 5604 Apr, [facility] [id number] [place] [address] 22186- 0738 Mar, [facility] [id number] [place] [address] 48875- 9824 Mar, [facility] [id number] [place] [address] 93873- 2448 Mar, [facility] [id number] [place] [address] 56173- 6937 Feb, [facility] [address] [place] [address] [id number] Feb, Dental examination Z01.20 [facility] [address] [address]- 2296 Jan, [facility] [id number] [place] [address] 123215- 8974 14 Dec, 2015 [facility] [id number] [place] [address] 89015- 2954 Dec, [facility] [id number] [place] [address] 54637- 4151 Dec, [facility] [address] [id number] [place] [address]- 8225 Dec, Diabetes type 2, controlled E11.9 [facility] [address] [id number] [place] [address] Nov, [facility] ([facility] [address] [id number] [place] [address] Nov, [facility] [address] [id number] [place] [address] Nov, [facility] [address] [id number] [place] [address] Nov, [facility] ([facility] [address] [id number] [place] [address] Oct, [facility] [address] [id number] [place] [address] Oct, [facility] [address] [id number] [place] [address] Oct, [facility] [address] [id number] [place] [address] 24[address] Sep, [facility] [address] [id number] [place] [address] Sep, Diabetes type 2, controlled E11.9 [facility] [address] [id number] [place] [address] Sep, Diabetes type 2, controlled E11.9 [facility] [address] [id number] [place] [address] August, [facility] [address] [id number] [place] [address] August, [facility] [address] [facility] [id number] [place] [address] August, Type 2 diabetes mellitus without complication E11.9 and Pain in left shoulder M25.512 [facility] [address] [id number] [place] [address] Jul, [facility] [id number] [place] [address]- [address] Jul, Diabetes type 2, controlled E11.9 and Hypertension, benign I10 [facility] [id number] [place] [address], [place] [address] Jun, [facility] ([facility] [id number] [place] [address]- [address] Jun, [facility] [id number] [place] [address]- 9667 Jun, Diabetes 250.00 [facility] [id number] [place] [address]- 3[address] Jun, [facility] [facility] [id number] [place] [address]57- 8737 May, Diabetes type 2, uncontrolled E11.65 [facility] [id number] [place] [address], [place] [address] 27[address] May, [facility] [id number] [place] [address] 72734- 0660 Apr, Type 2 diabetes mellitus without complication E11.9 [facility] [id number] [place] [address] 62088- 8029 Apr, Encounter for immunization Z23 [facility] [id number] [place] [address] 89194- 8773 Apr, [facility] [id number] [place] [address] 35299- 0431 Mar, [facility] [id number] [place] [address] 37411- 0248 Mar, [facility] [id number] [address] 0666 Mar, [facility] [id number] [address] 9823 Feb, [facility] [id number] [address] 2099 Jan, [facility] [id number] [address] 6761 Jan, [facility] [id number] [place] [address] 75843- 8104 Jan, [facility] [id number] [address] 1390 Dec, Diabetes 250.00 and COPD (chronic obstructive pulmonary disease) 496 [facility] [id number] [address] 6804 Dec, [facility] [id number] [address]- 5298 Dec, [facility] [id number] [address]- 3612 Nov, [facility] [id number] [address] 8991 Oct, Diabetes 250.00 [facility] [id number] [address]- 1778 Sep, [facility] [id number] [address]- 1639 Sep, [facility] [id number] [address]- 1699 Sep, [facility] [id number] [address]- 9100 Sep, Diabetes 250.00 [facility] [id number] [address]- 3797 Sep, [facility] [id number] [address]- 9351 Sep, [facility] [id number] [place] [address]- 1189 August, Hypertension, essential, benign 401.1 ; Coronary atherosclerosis of [place] coronary artery 414.01 and Diabetic neuropathy associated with type 2 diabetes mellitus 250.60 [facility] [address] [facility] [id number] [place] [address]- 3970 29 Jul, 2014 [facility] [address] [facility] [id number] [place] [address], [place] [address]- 8653 Jul, [facility] [address] [facility] [id number] [place] [address]- 6083 Jul, [facility] [id number] [place] [address], [place] 8006 Jun, [facility] [id number] [place] [address]- 0724 Jun, [facility] [id number] [place] [address], [place] [address]- 0184 Jun, [facility] [id number] [place] [address]- 0000 Jun, [facility] [id number] [place] [address]- 2059 Jun, [facility] [id number] [address]- 1824 May, [facility] [id number] [place] [address]- 0880 May, [facility] [address] [id number] 1435 May, [facility] [id number] 7316 May, [facility] [id number] [address]- 9346 May, [facility] [id number] [address]- 3055 May, [facility] [place] [facility] [address] [id number] [place] [address]- 0278 May, [facility] [place] [facility] [address] [id number] [place] [address]- 0526 Apr, [facility] [place] [facility] [address] [id number] [place] [address]- 8734 Apr, [facility] [place] [facility] [address] [id number] [place] [address]- 6197 Apr, [facility] [place] [facility] [address] [id number] [place] [address]- 4437 Apr, [facility] [place] [facility] [address] [id number] [place] [address]- 0702 Mar, [facility] [place] [facility] [address] [id number] [place] 3460 Mar, [facility] [place] [facility] [address] [id number] [place] [address]- 5674 Mar, [facility] [place] [facility] [address] [id number] [place] [address]- 5874 Mar, [facility] [place] [facility] [address] [id number] [place] [address]- 4362 Feb, [facility] [place] [facility] [address] [id number] [place] [address]- 7708 Feb, [facility] [place] [facility] [address] [id number] [place] [address]- 8808 Feb, [facility] [place] [facility] [address] [id number] [place] [address]- 0784 Feb, [facility] [place] [facility] [address] [id number] [place] [address]- 3468 Feb, [facility] [place] [facility] [address] [id number] [place] [address]- 5569 Feb, [facility] [place] [facility] [address] [id number] [place] [address]- 2530 Feb, [facility] [place] [facility] [address] [id number] [place] [address]- 4449 Jan, [facility] [place] [facility] [address] [id number] [place] [address]- 0021 Jan, [facility] [place] [facility] [address] [id number] [place] [address]- 7049 Dec, [facility] [place] [facility] [address] [id number] [place] [address]- 0204 Dec, 2013 [facility] [place] [facility] [address] [id number] [place] [address]- 9880 Dec, [facility] [place] [facility] [address] [id number] [place] [address]- 0697 Dec, 2013 [facility] [place] [facility] [address] [id number] [place] [address]- 0554 Dec, [facility] [place] [facility] [address] [id number] [place] [address]- 2814 Dec, [facility] [place] [facility] [address] [id number] [place] [address]- 6829 Dec, [facility] [place] [facility] [address] [id number] [place] [address]- 0097 Dec, [facility] [place] [facility] [address] [id number] [place] [address]- 6659 Nov, [facility] [place] [facility] [address] [id number] [place] [address]- 3606 Nov, [facility] [place] [facility] [address] [id number] [place] [address]- 5535 Nov, [facility] [place] [facility] [address] [id number] [place] [address]- 7050 Nov, [facility] [place] [facility] [address] [id number] [place] [address]- 0898 Oct, [facility] [place] [facility] [address] [id number] [place] [address]- 7677 Oct, 2013 [facility] [place] [facility] [address] [id number] [place] [address]- 7686 Oct, [facility] [place] [facility] [address] [id number] [place] [address]- 6686 Oct, 2013 [facility] [place] [facility] [address] [id number] [place] [address]- 9724 Oct, 2013 [facility] [place] [facility] [address] [id number] [place] [address]- 9886 Oct, [facility] [place] [facility] [address] [id number] [place] [address]- 4131 Oct, [facility] [place] [facility] [address] [id number] [place] [address]- 5872 Oct, [facility] [place] [facility] [address] [id number] [place] [address]- 7140 Sep, [facility] [place] [facility] [address] [id number] [place] [address]- 4792 Sep, [facility] [place] [facility] [address] [id number] [place] [address]- 7444 August, [facility] [place] [facility] [address] [id number] [place] [address]- 6613 August, [facility] [place] [facility] [address] [id number] [place] [address]- 5334 Jul, [facility] [place] [facility] [address] [id number] [place] [address]- 9314 Jul, [facility] [place] [facility] [address] [id number] [place] [address]- 1490 Jul, [facility] [place] [facility] [address] [id number] [place] [address]- 5282 Jul, [facility] [place] [facility] [address] [id number] [place] [address]- 8940 Jul, [facility] [address] [id number] [place] [address]- 4230 Jul, [facility] [place] [facility] [address] [id number] [place] [address]- 4733 Jul, [facility] [place] [facility] [address] [facility] [id number] [place] [address]- 8510 Jul, [facility] [place] [facility] [address] [id number] [place] [address]- 6484 Jun, [facility] [place] [facility] [address] [id number] [place] [address]- 6506 Jun, [facility] [place] [facility] [address] [id number] [place] [address]- 9628 Jun, [facility] [address] [facility] [id number] [place] [address]- 5243 Jun, [facility] [place] [facility] [address] [id number] [place] [address]- 6959 May, [facility] [place] [facility] [address] [id number] [place] [address]- 2209 May, [facility] [address] [facility] [id number] [place] [address]- 2234 Apr, [facility] [place] [facility] [address] [id number] [place] [address]- 7857 Apr, [facility] [place] [facility] [address] [facility] [id number] [place] [address]- 6584 Mar, [facility] [place] [facility] [address] [id number] [place] [address]- 0924 Mar, [facility] [place] [facility] [address] [facility] [id number] [place] 6182 Mar, [facility] [place] [facility] [address] [facility] [id number] [place] [address]- 2791 Mar, [facility] [place] [facility] [address] [id number] [place] [address]- 5476 Mar, [facility] [place] [facility] [address] [id number] [place] [address]- 6264 Mar, [facility] [place] [facility] [address] [id number] [place] [address]- 9512 Feb, [facility] [place] [facility] [address] [id number] [place] [address]- 0535 Feb, [facility] [place] [facility] [address] [id number] [place] [address]- 9422 Feb, [facility] [place] [facility] [address] [id number] [place] [address]- 1432 Feb, [facility] [place] [facility] [address] [id number] [place] [address]- 2127 Feb, [facility] [place] [facility] [address] [id number] [place] [address]- 7011 Feb, [facility] [place] [facility] [address] [id number] [place] [address]- 3009 Feb, [facility] [place] [facility] [address] [id number] [place] [address]- 5575 Feb, [facility] [place] [facility] [address] [id number] [place] [address]- 1243 15 Jan, 2013 [facility] [place] [facility] [address] [id number] [place] [address]- 1757 15 Jan, 2013 [facility] [place] [facility] [address] [id number] [place] [address]- 5609 14 Jan, 2013 [facility] [place] [facility] [address] [id number] [place] [address]- 6188 14 Jan, 2013 [facility] [place] [facility] [address] [id number] [place] [address]- 6959 18 Dec, 2012 [facility] [place] [facility] [address] [id number] [place] [address]- 5658 Dec, [facility] [place] [facility] [address] [id number] [place] [address]- 7393 Dec, [facility] [place] [facility] [address] [id number] [place] [address]- 5296 Nov, [facility] [place] [facility] [address] [id number] [place] [address]- 0753 Nov, [facility] [place] [facility] [address] [id number] [place] [address]- 2458 Oct, [facility] [place] [facility] [address] [id number] [place] [address]- 1059 Oct, [facility] [place] [facility] [address] [id number] [place] [address]- 4139 Oct, [facility] [place] [facility] [address] [id number] [place] [address]- 5108 Sep, [facility] [place] [facility] [address] [id number] [place] [address]- 8881 Sep, [facility] [place] [facility] [address] [id number] [place] [address]- 1692 Sep, [facility] [place] [facility] [address] [id number] [place] [address]- 1420 Sep, [facility] [place] [facility] [address] [id number] [place] [address]- 7411 Sep, [facility] [place] [facility] [address] [id number] [address]- 5090 Sep, [facility] [place] [facility] [address] [id number] [place] [address]- 3031 August, [facility] [place] [facility] [address] [id number] [place] [address]- 4292 August, [facility] [place] [facility] [address] [id number] [place] [address]- 5495 August, [facility] [place] [facility] [address] [id number] [place] [address]- 3766 August, [facility] [address] [id number] [place] [address]- 5859 August, [facility] [address] [id number] [place] [address]- 6603 August, [facility] [address] [id number] [place] [address]- 5562 August, [facility] [address] [id number] [place] [address]- 1800 Jul, [facility] [address] [id number] [place] [address]- 7413 Jul, [facility] [address] [id number] [place] [address]- 3665 Jun, [facility] [address] [id number] [place] [address]- 4727 Jun, [facility] [address] [id number] [place] [address]- 9891 May, [facility] [address] [id number] [place] [address]- 4500 May, [facility] [address] [id number] [place] [address]- 6686 Apr, [facility] [address] [id number] [place] [address]- 9553 Mar, [facility] [address] [id number] [place] 1047 Mar, [facility] [address] [id number] [place] [address]- 3854 Mar, [facility] [address] [id number] [place] [address]- 3251 Mar, [facility] [address] [id number] [place] [address]- 1314 Mar, [facility] [place] [facility] [address] [id number] [place] [address]- 7745 Mar, [facility] [place] [facility] [address] [id number] [place] [address]- 2019 Feb, [facility] [place] [facility] [address] [id number] [place] [address]- 8254 Feb, [facility] [place] [facility] [address] [id number] [place] [address]- 3674 Feb, [facility] [place] [facility] [address] [id number] [place] [address]- 4116 Feb, [facility] [place] [facility] [address] [id number] [place] [address]- 3032 Feb, [facility] [place] [facility] [address] [facility] [id number] [place] [address]- 9029 Feb, [facility] [place] [facility] [address] [id number], [place] [address]- 8277 Feb, [facility] [place] [facility] [address] [id number] [place] [address]- 2012 Feb, [facility] [place] [facility] [address] [facility] [id number], [place] [address]- 2466 Jan, [facility] [place] [facility] [address] [facility] [id number], [place] [address]- 5943 Jan, [facility] [place] [facility] [address] [id number], [place] [address]- 1147 28 Dec, 2011 [facility] [place] [facility] [address] [id number], [place] [address]- 7005 19 Dec, 2011 [facility] [place] [facility] [address] [id number], [place] [address]- 4031 18 Dec, 2011 [facility] [place] [facility] [address] [facility] [id number] [address]- 3437 18 Dec, 2011 [facility] [place] [facility] [address] [id number], [place] [address]- 1458 Dec, [facility] [place] [facility] [address] [id number] [place] [address]- 7523 Nov, [facility] [place] [facility] [address] [id number] [place] [address]- 8239 Oct, [facility] [place] [facility] [address] [facility] [id number] [place] [address]- 9218 Oct, [facility] [place] [facility] [address] [id number] [place] [address]- 4679 Sep, [facility] [place] [facility] [address] [id number] [place] [address]- 2428 Sep, [facility] [place] [facility] [address] [id number] [place] [address]- 7320 Sep, [facility] [place] [facility] [address] [id number] [place] [address]- 6602 Sep, [facility] [place] [facility] [address] [id number] [place] [address]- 5868 Sep, [facility] [place] [facility] [address] [id number] [place] [address]- 7807 Sep, [facility] [place] [facility] [address] [id number] [place] [address]- 2754 Sep, [facility] [place] [facility] [address] [id number] [place] [address]- 3462 Sep, [facility] [place] [facility] [address] [id number], [place] [address]- 5374 August, [facility] [place] [facility] [address] [id number] [place] [address] August, [facility] [place] [facility] [address] [facility] [id number] [place] [address] August, [facility] [place] [facility] [address] [facility] [id number] [place] [address] Jul, [facility] [place] [facility] [address] [id number] [place] [address] Jul, [facility] [place] [facility] [address] [id number] [place] [address] Jun, [facility] [place] [facility] [address] [id number] [place] [address] Jun, [facility] [place] [facility] [address] [id number] [place] [address] Jun, [facility] [place] [facility] [address] [id number] [place] [address] Jun, [facility] [place] [facility] [address] [id number] [place] [address] May, [facility] [place] [facility] [address] [id number] [place] [address] May, [facility] [place] [facility] [address] [id number] [place] [address] Apr, [facility] [place] [facility] [address] [id number] [place] [address] Apr, [facility] [place] [facility] [address] [id number] [place] [address] Apr, [facility] [place] [facility] [address] [id number] [place] [address] 14 Mar, 2011 [facility] [place] [facility] [address] [id number] [place] [address] Mar, [facility] [place] [facility] [address] [id number] [place] [address] Mar, [facility] [place] [facility] [address] [id number] [place] [address] Feb, [facility] [place] [facility] [address] [id number] [place] [address] Feb, [facility] [place] [facility] [address] [id number] [place] [address] 09 Feb, 2011 [facility] [place] [facility] [address] [id number] [place] [address] 09 Feb, 2011 [facility] [place] [facility] [address] [id number] [place] [address] 25 Jan, 2011 [facility] [place] [facility] [address] [id number] [place] [address] 14 Jan, 2011 [facility] [place] [facility] [address] [id number] [place] [address] 12 Jan, 2011 [facility] [place] [facility] [address] [id number] [place] [address] 16 Dec, 2010 [facility] [place] [facility] [address] [id number] [place] [address] Oct, [facility] [place] [facility] [address] [id number] [place] [address] 24 Mar, 2010 [facility] [place] [facility] [address] [id number], [place] [address] Feb, [facility] [place] [facility] [address] [id number] [address] Feb, [facility] [place] [facility] [address] [id number] [place] [address] 16 May, 2009 [facility] [place] [facility] [address] [id number] [address] Apr, [facility] [place] [facility] [address] [id number] [address] 29 Mar, 2009 [facility] [place] [facility] [address] [id number] [place] [address] 30 Jan, 2009 [facility] [place] [facility] [address] [facility] [id number] [address] 15 Oct, 2008 [facility] [place] [facility] [address] [id number], [place] [address] 16 Jul, 2008 [facility] [place] [facility] [address] [facility] [id number] [place] [address] Mar, [facility] [address] [facility] [id number] [place] [address] Feb, [facility] [address] [facility] [id number] [place] [address] Jan, IMMUNIZATIONS No Known Immunizations SOCIAL HISTORY Never Assessed REASON FOR VISIT EMR-[facility] PLAN OF CARE VITAL SIGNS MEDICATIONS Unknown [...] obesity Medical History mortons neuroma (Dr. Masters) Medical History pneumonia Surgical History tonsillectomy Hospitalization History surgeries Hospitalization History falls 11/01/2017 Hospitalization History [facility] Pneumonia 07/05-07/09
--- OUTSIDE RECORDS SUMMARY | 2018-08-27 14:43 | XMS REPORT ---
Author Author Migration, Doctor Organization [facility] Address Unknown Phone Unavailable Care Team Providers Care Electrician Sound Name Role Phone Migration, Doctor Unavailable Unavailable PROBLEMS Type Condition ICD9-CM Code YFL68-SP Code Onset Dates Condition Status SNOMED Code Problem Obstructive sleep apnea G47.33 Active 84653605 Problem Stress incontinence of urine N39.3 Active 71724414 Problem Uncontrolled type 2 diabetes mellitus without complication, without long-term current use of insulin E11.65 Active 047459944 Problem Hypertension, benign I10 Active 16378920 Problem Fibromyalgia M79.7 Active 600784583 Problem Arthritis M19.90 Active 7561024 Problem 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 Active 48160712 Problem Polyneuropathy G62.9 Active 37867243 Problem residential current use of insulin Z79.4 Active 702639138 Problem Type 2 diabetes mellitus with hyperglycemia E11.65 Active 170778967 Problem Constipation K59.00 Active 38814036 Problem Non-pressure chronic ulcer of unspecified part of right lower leg with unspecified severity L97.919 Active 541895351 Problem Neuropathy G62.9 Active 585753747 Problem 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 [id number] [address] Jul, [facility] [address] [facility] [id number], [place] [address] 5234 Jul, [facility] [id number] [place] [address] 03161- 7217 Jun, Obstructive sleep apnea G47.33 ; Hypertension, benign I10 ; Type 2 diabetes mellitus with hyperglycemia E11.65 ; Morbid obesity E66.01 and Non-pressure chronic ulcer of unspecified part of right lower leg with unspecified severity L97.919 [facility] [id number] [place] [address] 51517- 8008 Jun, [facility] [id number] [place] [address] 13499- 5532 Jun, [facility] [id number] [place] [address] 07046- 7762 Jun, [facility] [id number] [place] [address] 91617- 5421 Jun, Morbid obesity E66.01 and Uncontrolled type 2 diabetes mellitus with hyperglycemia E11.65 [facility] [id number] [place] [address] 92412- 3152 Jun, Uncontrolled type 2 diabetes mellitus with hyperglycemia E11.65 [facility] [id number] [place] [address] 21193- 6020 May, [facility] [id number] [place] [address] 66719- 5661 May, [facility] [id number] [place] [address] 98040- 0807 May, [facility] [id number] [place] [address] 12905- 9130 May, Renal insufficiency N28.9 ; BMI 50.0-59.9, adult Z68.43 and Weight gain, abnormal R63.5 [facility] [id number] [place] [address] 41661- 2313 06 May, 2018 Renal insufficiency N28.9 ; BMI 50.0-59.9, adult Z68.43 and Weight gain, abnormal R63.5 [facility] [id number] [address] 8214 Apr, Uncontrolled type 2 diabetes mellitus with hyperglycemia E11.65 and Weight gain, abnormal R63.5 [facility] [address], [place] [address] 5426 Apr, [facility] [address], [place] [address]- 8713 Apr, [facility] [id number] [place] [address] 99752- 4647 Apr, Uncontrolled type 2 diabetes mellitus with hyperglycemia E11.65 and Diabetes type 2, controlled E11.9 [facility] [id number] [place] [address] 34287- 2545 Apr, [facility] [address], [place] [address]- 4402 Apr, [facility] [address], [place] [address]- 1027 Apr, [facility] [address], [place] [address]- 1295 Mar, Uncontrolled type 2 diabetes mellitus without complication, without long-term current use of insulin E11.65 and BMI 50.0-59.9, adult Z68.43 [facility] [address], [place] [address] 6467 Mar, [facility] [address], [place] [address]- 6030 Mar, [facility] [address], [place] [address]- 0469 Mar, [facility] [address], [place] [address]- 4248 Mar, [facility] [id number], [place] [address]- 1285 Mar, Uncontrolled type 2 diabetes mellitus with hyperglycemia E11.65 and Diabetic polyneuropathy associated with type 2 diabetes mellitus E11.42 [facility] [address], [place] [address]- 4379 Feb, [facility] [id number] [place] [address] 06293- 0105 Feb, [facility] [id number] [place] [address] 11099- 0660 Feb, [facility] [id number] [place] [address] 69054- 5549 Feb, [facility] [id number] [place] [address] 64453- 3264 Feb, [facility] [id number] [place] [address] 91573- 8170 Feb, Fibromyalgia M79.7 and Uncontrolled type 2 diabetes mellitus without complication, without long-term current use of insulin E11.65 [facility] [id number] [place] [address] 99476- 6698 Jan, [facility] [id number] [place] [address] 24121- 8151 Jan, [facility] [id number] [place] [address] 92475- 9831 Jan, Uncontrolled type 2 diabetes mellitus without complication, without long-term current use of insulin E11.65 [facility] [address], [place] [address]- 1738 Jan, [facility] [id number] [place] [address] 73551- 5791 Dec, Therapeutic drug monitoring Z51.81 and Controlled type 2 diabetes mellitus without complication, without long-term current use of insulin E11.9 [facility] [id number] [place] [address] 76469- 6796 Dec, Renal insufficiency N28.9 [facility] [address], [place] [address]- 4766 Dec, [facility] [id number] [place] [address] 24313 2546 Dec, Dizziness R42 [facility] [address] 87503- 0816 Dec, Dizziness R42 and Encounter for immunization Z23 [facility] [id number] [place] [address] 60758 2546 Dec, Therapeutic drug monitoring Z51.81 and Controlled type 2 diabetes mellitus without complication, without long-term current use of insulin E11.9 [facility] [id number] [place] [address] 39694- 8196 Dec, [facility] [address] 52857- 8016 Dec, [facility] [address] 23313- 8574 Dec, [facility] [address] 84497- 9420 Nov, [facility] [id number] [place] [address] 55903- 6577 Nov, Therapeutic drug monitoring Z51.81 [facility] [id number] [place] [address] 56593- 3725 Nov, [facility] [id number] [place] [address] 64718- 7792 Nov, Therapeutic drug monitoring Z51.81 ; Fibromyalgia M79.7 and Controlled type 2 diabetes mellitus without complication, without long-term current use of insulin E11.9 [facility] [id number] [place] [address] 17019- 4614 Nov, Type 2 diabetes mellitus with hyperglycemia E11.65 [facility] [id number] [place] [address] 57291- 1114 Nov, [facility] [id number] [place] [address] 31065- 9455 Nov, [facility] [address] [facility] [id number], [place] [address]- 7971 Nov, Type 2 diabetes mellitus with hyperglycemia E11.65 [facility] [address], [place] [address]- 1156 Nov, [facility] [address], [place] [address]- 9902 Nov, [facility] [address], [place] [address]- 4319 Nov, Constipation K59.00 [facility] [address], [place] [address]- 1343 Oct, Diabetes type 2, controlled E11.9 [facility] [address], [place] [address]- 0888 Oct, Type 2 diabetes mellitus with hyperglycemia E11.65 ; residential current use of insulin Z79.4 and Neuropathy G62.9 [facility] [address], [place] [address]- 5060 Oct, [facility] [address], [place] [address]- 4724 Oct, [facility] [address], [place] [address]- 4326 Oct, [facility] [address], [place] [address]- 9219 Oct, [facility] [address], [place] [address]- 0792 Oct, [facility] [address], [place] [address]- 2725 Oct, [facility] [address], [place] [address]- 4276 Oct, [facility] [address], [place] [address]- 6737 Sep, [facility] [address], [place] [address] 2546 Sep, Uncontrolled type 2 diabetes mellitus without complication, without long-term current use of insulin E11.65 [facility] [id number], [place] [address] 2546 Sep, Hypertension, benign I10 ; Fibromyalgia M79.7 ; Controlled type 2 diabetes mellitus without complication, without long-term current use of insulin E11.9 and Uncontrolled type 2 diabetes mellitus without complication, without long-term current use of insulin E11.65 [facility] [id number] [place] [address] 21274 2546 Sep, [facility] [id number] [place] [address] 95956 2546 Sep, Uncontrolled type 2 diabetes mellitus without complication, without long-term current use of insulin E11.65 [facility] [id number] [place] [address] 68136 2546 Sep, [facility] [id number], [place] [address] 2546 Sep, [facility] [id number] [place] [address] 53399 2546 Sep, Uncontrolled type 2 diabetes mellitus without complication, without long-term current use of insulin E11.65 and Fibromyalgia M79.7 [facility] [address], [place] [address] 2546 August, [facility] [id number], [place] [address] 2546 August, [facility] [address], [place] [address] 2546 August, [facility] [id number], [place] [address] 2546 August, Fibromyalgia M79.7 [facility] [address], [place] [address] 2546 Jul, Hypertension, benign I10 [facility] [id number] [place] [address] 28062- 7059 Jul, Fibromyalgia M79.7 [facility] [id number] [place] [address] 76878- 6976 Jul, [facility] [id number] [place] [address] 72976- 6745 Jun, [facility] [id number] [place] [address] 33880- 8705 Jun, Hypertension, benign I10 ; Arthritis M19.90 ; residential current use 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 Z79.891 and Uncontrolled type 2 diabetes mellitus without complication, without long-term current use of insulin E11.65 [facility] [id number] [place] [address] 14594 -1981 Jun, Acute nasopharyngitis J00 and BMI 50.0-59.9, adult Z68.43 [facility] [id number] [place] [address] 07066- 6703 Jun, Fibromyalgia M79.7 [facility] [id number] [place] [address] 53343- 9255 May, [facility] [id number] [place] [address] 84636- 9465 May, Fibromyalgia M79.7 [facility] [id number] [place] [address] 75622- 7074 Apr, Fibromyalgia M79.7 [facility] [id number] [place] [address] 90200- 3669 Apr, [facility] [id number] [place] [address] 86051- 4292 Apr, [facility] [id number] [place] [address] 60131- 7135 Apr, Arthritis M19.90 [facility] [address] 58295- 3671 Apr, Arthritis M19.90 [facility] [id number] [place] [address] 40363- 3714 Apr, Arthritis M19.90 and Controlled type 2 diabetes mellitus without complication, without long-term current use of insulin E11.9 [facility] [id number] [place] [address] 53226- 5439 Apr, [facility] [address] 88069- 4613 Apr, Fibromyalgia M79.7 [facility] [id number] [place] [address] 35614- 9736 Mar, [facility] [id number] [place] [address] 05760- 8542 Mar, [facility] [id number] [place] [address] 27533- 8448 Mar, Fibromyalgia M79.7 [facility] [id number] [place] [address] 48985- 8837 Feb, [facility] [id number] [place] [address] 59545- 9199 Feb, [facility] [id number] [place] [address] 89661- 2753 Feb, [facility] [id number] [place] [address] 83865- 3800 Feb, Fibromyalgia M79.7 [facility] [id number] [place] [address] 58545- 0645 Feb, Diabetes type 2, uncontrolled E11.65 and Encounter for immunization Z23 [facility] [id number] [place] [address] 23973- 5014 Jan, [facility] [id number] [place] [address] 91486- 6925 Jan, Fibromyalgia M79.7 [facility] [address] [id number] [address]- 4318 Dec, [facility] [id number] [place] [address] 22723- 2704 Dec, Fibromyalgia M79.7 [facility] [address], [place] [address]- 0166 Nov, [facility] [id number] [place] [address] 04761- 1079 Nov, [facility] [id number] [place] [address] 78273- 8833 Nov, 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 and Polyneuropathy G62.9 [facility] [id number] [place] [address] 45995- 7769 Nov, [facility] [id number] [place] [address] 68694- 7482 Nov, [facility] [id number] [place] [address] 23872- 7018 Oct, Diabetes type 2, uncontrolled E11.65 [facility] [id number] [place] [address] 73469- 8631 Oct, Diabetes type 2, uncontrolled E11.65 ; Polyneuropathy G62.9 and Pain in right wrist M25.531 [facility] [address], [place] [address]- 3583 Oct, [facility] [id number] [place] [address] 36787- 7318 Oct, Pain in left shoulder M25.512 [facility] [id number] [place] [address] 89317- 1991 Sep, [facility] [id number] [place] [address] 27941- 4879 Sep, Pain in left shoulder M25.512 [facility] [id number] [place] [address] 70210- 7159 Sep, [facility] [id number] [place] [address] 25001- 0038 August, Pain in left shoulder M25.512 [facility] [id number] [place] [address] 857145- 0883 Jul, [facility] [id number] [place] [address] 25030- 7044 Jul, [facility] [id number] [place] [address] 34747- 0354 Jul, Pain in left shoulder M25.512 [facility] [id number] [place] [address] 779411- 1724 Jun, [facility] [id number] [place] [address] 41523- 4005 Jun, [facility] [id number] [place] [address] 98190- 9708 Jun, Diabetes type 2, uncontrolled E11.65 ; Fibromyalgia M79.7 and Arthritis M19.90 [facility] [id number] [place] [address] 28770- 7239 Jun, Pain in left shoulder M25.512 [facility] [id number] [place] [address] 94217- 3600 May, [facility] [id number] [place] [address] 37786- 7304 May, Diabetes type 2, controlled E11.9 [facility] [id number] [place] [address] 91989- 4418 May, [facility] [id number] [place] [address] 51852- 0283 May, Uncontrolled type 2 diabetes mellitus without complication, without long-term current use of insulin E11.65 [facility] [id number] [place] [address] 98848- 4993 May, Pain in left shoulder M25.512 [facility] [address], [place] [address]- 9707 May, Diabetes type 2, controlled E11.9 and Uncontrolled type 2 diabetes mellitus without complication, without long-term current use of insulin E11.65 [facility] [address], [place] [address]- 6831 Apr, [facility] [id number] [place] [address] 78251- 6294 Apr, [facility] [address], [place] [address]- 3773 Mar, [facility] [id number] [place] [address] 02854- 2401 Mar, [facility] [id number] [place] [address] 33106- 9312 Mar, [facility] [id number] [place] [address] 41632- 2605 Feb, [facility] [id number] [place] [address] [id number] Feb, Dental examination Z01.20 [facility] [address], [place] [address]- 2044 Jan, [facility] [address], [place] [address]- 8199 Dec, [facility] [address], [place] [address]- 1473 Dec, [facility] [address], [place] [address]- 9846 Dec, [facility] [id number] [place] [address] 99129- 3600 Dec, Diabetes type 2, controlled E11.9 [facility] [address], [place] [address]- 0187 Nov, [facility] [address] [id number] [place] [address]- 3289 Nov, [facility] [address] [id number] [place] [address]- 1306 Nov, [facility] [address] [id number] [place] [address]- 9552 Nov, [facility] [address] [id number] [place] [address]- 2841 Oct, [facility] [address] [id number] [place] [address]- 0858 Oct, [facility] [address] [facility] [id number] [place] [address]- 6683 Oct, [facility] [address] [facility] [id number] [place] [address]- 2834 Sep, [facility] [address] [facility] [id number] [place] [address]- 0117 Sep, Diabetes type 2, controlled E11.9 [facility] [address] [id number] [place] [address]- 6624 Sep, Diabetes type 2, controlled E11.9 [facility] [address] [facility] [id number] [place] [address]- 5872 August, [facility] [address] [facility] [id number] [place] [address]- 2459 August, [facility] [address] [facility] [id number] [place] [address]- 8091 August, Type 2 diabetes mellitus without complication E11.9 and Pain in left shoulder M25.512 [facility] [address] [facility] [id number] [place] [address] Jul, [facility] [address] [facility] [id number] [place] [address] Jul, Diabetes type 2, controlled E11.9 and Hypertension, benign I10 [facility] [id number] [address] Jun, [facility] [id number] [place] [address] Jun, [facility] [id number] [place] [address]- [address] Jun, Diabetes 250.00 [facility] [id number] [place] [address]- [address] Jun, [facility] [id number] [place] [address]- [address] May, Diabetes type 2, uncontrolled E11.65 [facility] [id number] [place] [address]- [address] May, [facility] [id number] [place] [address]- [address] Apr, Type 2 diabetes mellitus without complication E11.9 [facility] [id number], [place] [address] Apr, Encounter for immunization Z23 [facility] [id number] [place] [address]- [address] Apr, [facility] [id number], [place] [address] Mar, [facility] [id number], [place] [address] Mar, [facility] [id number], [place] [address] Mar, [facility] [id number] [place] [address]- [address] Feb, [facility] [address] [id number], [place] [address] Jan, [facility] [id number] [place] [address]12- 3962 Jan, [facility] [address] [address] [address] Jan, [facility] [id number] [place] [address] 499735- 2746 Dec, Diabetes 250.00 and COPD (chronic obstructive pulmonary disease) 496 [facility] [address], [place] [address] 6209 Dec, [facility] [id number] [place] [address] 39245- 1508 Dec, [facility] [id number] [place] [address] 87588- 0945 Nov, [facility] [id number] [place] [address] 85910- 7836 Oct, Diabetes 250.00 [facility] [id number] [place] [address] 96307- 6128 Sep, [facility] [id number] [place] [address] 50941- 1297 Sep, [facility] [id number] [place] [address] 327413- 1854 Sep, [facility] [address], [place] [address] 8021 Sep, Diabetes 250.00 [facility] [id number] [place] [address] 35484- 0569 Sep, [facility] [address], [place] [address]- 9015 Sep, [facility] [id number] [place] [address] 228556- 0556 August, Hypertension, essential, benign 401.1 ; Coronary atherosclerosis of [place] coronary artery 414.01 and Diabetic neuropathy associated with type 2 diabetes mellitus 250.60 [facility] [address] [address] Jul, [facility] [place] [facility] [address] [id number] [place] [address]- 9387 14 Jul, 2014 [facility] [place] [facility] [address] [id number] [place] [address]- 8866 Jul, [facility] [place] [facility] [address] [id number] [place] [address]- 8126 Jun, [facility] [place] [facility] [address] [id number] [place] [address]- 0826 Jun, [facility] [place] [facility] [address] [id number] [place] [address]- 5099 Jun, [facility] [place] [facility] [address] [id number] [place] [address]- 3001 Jun, [facility] [place] [facility] [address] [facility] [id number] [place] [address]- 5206 Jun, [facility] [place] [facility] [address] [id number] [place] [address]- 2585 May, [facility] [place] [facility] [address] [id number] [place] [address]- 3504 May, [facility] [place] [facility] [address] [facility] [id number] [place] [address]- 9712 May, [facility] [place] [facility] [address] [id number] [place] [address]- 1476 May, [facility] [place] [facility] [address] [id number], [place] [address]- 4385 May, [facility] [place] [facility] [address] [id number] [place] [address]- 6440 May, [facility] [place] [facility] [address] [id number] [place] [address]- 5717 May, [facility] [place] [facility] [address] [facility] [id number] [place] [address]- 0057 Apr, [facility] [place] [facility] [address] [id number] [place] [address]- 6456 Apr, [facility] [place] [facility] [address] [id number] [place] [address]- 0545 Apr, [facility] [place] [facility] [address] [id number] [place] [address]- 0721 Apr, [facility] [place] [facility] [address] [id number] [place] [address]- 9417 Mar, [facility] [place] [facility] [address] [id number] [place] [address]- 8111 Mar, [facility] [place] [facility] [address] [id number] [place] [address]- 9619 Mar, [facility] [place] [facility] [address] [id number] [place] [address]- 7693 Mar, [facility] [place] [facility] [address] [id number] [place] [address]- 5904 Feb, [facility] [place] [facility] [address] [id number] [place] [address]- 1039 Feb, [facility] [place] [facility] [address] [id number] [place] [address]- 8681 Feb, [facility] [place] [facility] [address] [facility] [id number] [place] [address]- 4026 Feb, [facility] [place] [facility] [address] [id number] [place] [address]- 4541 Feb, [facility] [place] [facility] [address] [id number], [place] [address]- 7294 Feb, [facility] [place] [facility] [address] [id number] [place] [address]- 0074 Feb, [facility] [place] [facility] [address] [id number] [place] 1593 Jan, [facility] [place] [facility] [address] [id number] 5261 Jan, [facility] [place] [facility] [address] [id number] [place] [address]- 4306 23 Dec, 2013 [facility] [place] [facility] [address] [id number] [place] [address]- 5584 Dec, 2013 [facility] [place] [facility] [address] [id number] [place] [address]- 2836 Dec, 2013 [facility] [place] [facility] [address] [id number] [place] [address]- 5473 10 Dec, 2013 [facility] [place] [facility] [address] [id number] [place] [address]- 4846 Dec, 2013 [facility] [place] [facility] [address] [id number] [place] [address]- 7081 Dec, 2013 [facility] [place] [facility] [address] [id number] [place] [address]- 4242 Dec, [facility] [place] [facility] [address] [id number] [place] [address]- 6462 Dec, [facility] [place] [facility] [address] [id number] [place] [address]- 6319 Nov, [facility] [place] [facility] [address] [id number] [place] [address]- 6628 Nov, [facility] [place] [facility] [address] [id number] [place] [address]- 7563 Nov, [facility] [place] [facility] [address] [id number] [place] [address]- 6425 Nov, [facility] [place] [facility] [address] [id number] [place] [address]- 4527 Oct, [facility] [place] [facility] [address] [id number] [place] [address]- 0353 Oct, [facility] [place] [facility] [address] [id number] [place] [address]- 0521 Oct, [facility] [place] [facility] [address] [id number] [place] [address]- 5830 Oct, [facility] [place] [facility] [address] [id number] [place] [address]- 0179 Oct, [facility] [place] [facility] [address] [id number] [place] [address]- 2217 Oct, [facility] [place] [facility] [address] [id number] [place] [address]- 5251 Oct, [facility] [place] [facility] [address] [id number] [place] [address]- 6183 Oct, [facility] [place] [facility] [address] [id number] [place] [address]- 9530 Sep, [facility] [place] [facility] [address] [id number] [place] [address]- 1347 Sep, [facility] [place] [facility] [address] [id number] [place] [address]- 4467 August, [facility] [place] [facility] [address] [id number] [place] [address]- 8472 August, [facility] [place] [facility] [address] [id number] [place] [address]- 8122 Jul, [facility] [place] [facility] [address] [id number] [place] [address]- 8701 Jul, [facility] [place] [facility] [address] [id number] [place] [address]- 4758 Jul, [facility] [place] [facility] [address] [id number] [place] [address]- 9111 Jul, [facility] [place] [facility] [address] [id number] [place] [address]- 5682 Jul, [facility] [place] [facility] [address] [id number] [place] [address]- 3964 Jul, [facility] [place] [facility] [address] [id number] [place] [address]- 2087 Jul, [facility] [place] [facility] [address] [id number] [place] [address]- 6388 18 Jul, 2013 [facility] [address] [id number] [place] [address]- 1645 Jun, [facility] [place] [facility] [address] [id number] [place] 9533 Jun, [facility] [address] [id number] [place] [address]- 0997 Jun, [facility] [place] [facility] [address] [id number] [place] [address]- 3403 Jun, [facility] [address] [id number] [place] [address]- 0474 18 May, 2013 [facility] [place] [facility] [address] [id number] [place] [address]- 4453 May, [facility] [address] [id number] [place] [address]- 4151 Apr, [facility] [address] [id number] [place] [address]- 1561 Apr, [facility] [address] [id number] [place] [address]- 5958 Mar, [facility] [address] [id number] [place] [address]- 0194 Mar, [facility] [place] [facility] [address] [id number] [place] [address]- 1327 Mar, [facility] [place] [facility] [address] [id number] [place] [address]- 0198 Mar, [facility] [place] [facility] [address] [id number] [place] 9207 Mar, [facility] [place] [facility] [address] [id number] [place] 9106 Mar, [facility] [place] [facility] [address] [id number] [place] 1079 Feb, [facility] [place] [facility] [address] [id number] [place] [address]- 5104 Feb, [facility] [place] [facility] [address] [id number] [place] [address]- 4451 Feb, [facility] [place] [facility] [address] [id number] [place] [address]- 8934 Feb, [facility] [place] [facility] [address] [id number] [place] [address]- 5718 Feb, [facility] [place] [facility] [address] [id number] [place] [address]- 9254 Feb, [facility] [place] [facility] [address] [id number] [place] [address]- 7638 Feb, [facility] [place] [facility] [address] [id number] [place] [address]- 6121 Feb, [facility] [place] [facility] [address] [id number] [place] [address]- 9002 15 Jan, 2013 [facility] [place] [facility] [address] [id number] [place] [address]- 2172 15 Jan, 2013 [facility] [place] [facility] [address] [id number], [place] [address]- 9528 14 Jan, 2013 [facility] [place] [facility] [address] [id number], [place] [address]- 9219 14 Jan, 2013 [facility] [place] [facility] [address] [id number], [place] [address]- 8980 18 Dec, 2012 [facility] [place] [facility] [address] [id number] [place] [address]- 8700 13 Dec, 2012 [facility] [place] [facility] [address] [id number] [place] [address]- 3299 2012 [facility] [place] [facility] [address] [id number] [place] [address]- 3368 23 Nov, 2012 [facility] [place] [facility] [address] [id number] [place] [address]- 5774 Nov, [facility] [address] [id number] [place] [address]- 4526 Oct, [facility] [address] [id number] [place] [address]- 2250 Oct, [facility] [address] [id number] [place] [address]- 7049 Oct, [facility] [address] [id number] [place] [address]- 2395 Sep, [facility] [address] [id number] [place] [address]- 9540 Sep, [facility] [address] [id number] [place] [address]- 4029 Sep, [facility] [address] [id number] [place] [address]- 0632 Sep, [facility] [address] [id number] [place] [address]- 1372 Sep, [facility] [address] [id number] [place] [address]- 5131 Sep, [facility] [address] [id number] [place] [address]- 3165 August, [facility] [address] [id number] [place] [address]- 1179 August, [facility] [place] [facility] [address] [id number] [place] [address]- 3573 August, [facility] [place] [facility] [address] [id number] [place] [address]- 4571 August, [facility] [place] [facility] [address] [id number] [place] [address]- 4340 August, [facility] [address] [id number] [place] [address]- 0150 August, [facility] [address] [id number] [place] [address]- 8326 August, [facility] [address] [id number] [place] [address]- 6895 Jul, [facility] [place] [facility] [address] [id number] [place] [address]- 5550 Jul, [facility] [place] [facility] [address] [id number] [place] [address]- 7550 Jun, [facility] [place] [facility] [address] [id number] [place] [address]- 9396 Jun, [facility] [place] [facility] [address] [id number] [place] [address]- 6479 May, [facility] [place] [facility] [address] [id number] [place] [address]- 1557 May, [facility] [address] [id number] [place] [address]- 5685 Apr, [facility] [address] [id number] [place] [address]- 3799 Mar, [facility] [address] [id number] [place] [address]- 9100 Mar, [facility] [place] [facility] [address] [id number] [place] [address]- 8802 Mar, [facility] [place] [facility] [address] [id number] [place] [address]- 2557 Mar, [facility] [place] [facility] [address] [id number] [place] [address]- 8792 Mar, [facility] [place] [facility] [address] [id number] [place] [address]- 1776 Mar, [facility] [place] [facility] [address] [id number] [place] [address]- 8017 Feb, [facility] [place] [facility] [address] [id number], [place] [address]- 9136 Feb, [facility] [place] [facility] [address] [id number] [place] [address]- 8029 Feb, [facility] [place] [facility] [address] [id number] [place] 1325 Feb, [facility] [place] [facility] [address] [facility] [id number] [place] [address]- 8380 Feb, [facility] [place] [facility] [address] [id number], [place] [address]- 5301 Feb, [facility] [place] [facility] [address] [id number] [place] [address]- 2305 Feb, [facility] [place] [facility] [address] [id number] [place] [address]- 1859 Feb, [facility] [place] [facility] [address] [facility] [id number] [place] [address]- 4874 Jan, [facility] [place] [facility] [address] [id number], [place] [address]- 3821 Jan, [facility] [place] [facility] [address] [id number] [place] [address]- 4941 28 Dec, 2011 [facility] [place] [facility] [address] [id number] [place] [address]- 5575 19 Dec, 2011 [facility] [place] [facility] [address] [id number], [place] [address]- 9738 18 Dec, 2011 [facility] [place] [facility] [address] [id number], [place] [address]- 8098 18 Dec, 2011 [facility] [place] [facility] [address] [id number] [place] [address]- 0988 04 Dec, 2011 [facility] [place] [facility] [address] [facility] [id number], [place] [address]- 6689 Nov, [facility] [place] [facility] [address] [facility] [id number] [place] [address]- 6404 Oct, [facility] [place] [facility] [address] [id number] [place] [address]- 9585 Oct, [facility] [address] [id number] [place] [address]- 9430 Sep, [facility] [place] [facility] [address] [id number] [place] [address]- 1268 Sep, [facility] [address] [id number] [place] [address]- 7152 Sep, [facility] [place] [facility] [address] [id number] [place] [address]- 9131 Sep, [facility] [address] [id number] [place] [address]- 0050 Sep, [facility] [address] [id number] [place] [address]- 3791 Sep, [facility] [address] [id number] [place] [address]- 0212 Sep, [facility] [address] [id number] [place] [address]- 7471 Sep, [facility] [place] [facility] [address] [id number] [place] [address]- 7259 August, [facility] [address] [id number] [place] [address]- 8244 August, [facility] [place] [facility] [address] [id number] [place] [address]- 8320 August, [facility] [place] [facility] [address] [id number] [place] [address]- 3132 Jul, [facility] [place] [facility] [address] [id number] [place] [address]- 0486 Jul, [facility] [place] [facility] [address] [id number] [id number] 9789 Jun, [facility] [place] [facility] [address] [id number] [place] [address]- 0268 Jun, [facility] [address] [id number] [place] [address]- 9203 Jun, [facility] [place] [facility] [address] [id number] [place] [address]- 5336 Jun, [facility] [place] [facility] [address] [id number] [place] [address]- 5574 May, [facility] [place] [facility] [address] [id number] [place] [address]- 3266 May, [facility] [place] [facility] [address] [id number] [place] [address]- 4906 Apr, [facility] [place] [facility] [address] [id number] [place] [address]- 8906 Apr, [facility] [place] [facility] [address] [id number] [place] [address]- 3095 Apr, [facility] [place] [facility] [address] [id number] [place] [address]- 4931 Mar, [facility] [place] [facility] [address] [id number] [place] [address]- 6449 Mar, [facility] [place] [facility] [address] [facility] [id number] [place] [address]- 9689 Mar, [facility] [place] [facility] [address] [id number] [place] [address]- 9893 Feb, [facility] [place] [facility] [address] [id number], [place] [address]- 1821 Feb, [facility] [place] [facility] [address] [id number] [place] [address]- 7664 Feb, [facility] [place] [facility] [address] [id number] [place] [address]- 5726 Feb, [facility] [place] [facility] [address] [id number] [place] [address] Jan, [facility] [place] [facility] [address] [id number], [place] [address] 14 Jan, 2011 [facility] [address] [facility] [id number] [place] [address] 12 Jan, 2011 [facility] [address] [facility] [id number], [place] [address] 16 Dec, 2010 [facility] [id number] [address] 13 Oct, 2010 [facility] [address] [facility] [id number], [place] [address] 24 Mar, 2010 [facility] [address] [facility] [id number] [place] [address] Feb, [facility] [address] [facility] [id number], [place] [address] Feb, [facility] [id number] [place] [address] 16 May, 2009 [facility] [address] [id number], [place] [address] Apr, [facility] [id number], [place] [address] Mar, [facility] [id number], [place] [address] 30 Jan, 2009 [facility] [id number], [place] [address] 15 Oct, 2008 [facility] [address] [facility] [id number], [place] [address] 16 Jul, 2008 [facility] [address] [id number], [place] [address] 04 Mar, 2008 [facility] [address] [facility] [id number], [place] [address] Feb, [facility] [address] [id number], [place] [address] 30 Jan, 2008 IMMUNIZATIONS No Known Immunizations SOCIAL HISTORY Never Assessed REASON FOR VISIT [facility] [place] VITAL SIGNS MEDICATIONS Unknown [...]
--- OUTSIDE RECORDS SUMMARY | 2018-08-27 14:43 | XMS REPORT ---
Author Author Migration, Doctor Organization [facility] Address Unknown Phone Unavailable Care Team Providers Care Welfare Interviewer Name Role Phone Migration, Doctor Unavailable Unavailable PROBLEMS Type Condition ICD9-CM Code WAC50-FU Code Onset Dates Condition Status SNOMED Code Problem Obstructive sleep apnea G47.33 Active 13106469 Problem Stress incontinence of urine N39.3 Active 31914747 Problem Uncontrolled type 2 diabetes mellitus without complication, without long-term current use of insulin E11.65 Active 379056239 Problem Hypertension, benign I10 Active 14624661 Problem Fibromyalgia M79.7 Active 333152248 Problem Arthritis M19.90 Active 6732334 Problem 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 Active 26453102 Problem Polyneuropathy G62.9 Active 86470811 Problem half-way current use of insulin Z79.4 Active 424153274 Problem Type 2 diabetes mellitus with hyperglycemia E11.65 Active 182006716 Problem Constipation K59.00 Active 37911282 Problem Non-pressure chronic ulcer of unspecified part of right lower leg with unspecified severity L97.919 Active 083622584 Problem Neuropathy G62.9 Active 076265405 Problem 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 Active 247956888 Problem Controlled type 2 diabetes mellitus without complication, without long -term current use of insulin E11.9 Active 607195302 Problem Other male erectile dysfunction N52.8 Active 204779732 Problem Uncontrolled type 2 diabetes mellitus with hyperglycemia E11.65 Active 207401881 Problem Diabetic polyneuropathy associated with type 2 diabetes mellitus E11.42 Active 16199497 Problem BMI 50.0-59.9, adult Z68.43 Active 721928579 ALLERGIES No Information ENCOUNTERS Encounter Location Date Diagnosis [facility] [id number], [place] [address] Jul, Uncontrolled type 2 diabetes mellitus without complication, without long-term current use of insulin E11.65 and Hypertension, benign I10 [facility] [address], [place] [address] 7300 Jul, [facility] [address] [place] [address] 02486- 9819 Jul, [facility] [id number] [place] [address] 299817- 7590 Jun, Obstructive sleep apnea G47.33 ; Hypertension, benign I10 ; Type 2 diabetes mellitus with hyperglycemia E11.65 ; Morbid obesity E66.01 and Non-pressure chronic ulcer of unspecified part of right lower leg with unspecified severity L97.919 [facility] [id number] [place] [address] 14169- 2709 Jun, [facility] [id number] [place] [address] 04941- 3520 Jun, [facility] [id number] [place] [address] 34482- 8302 Jun, [facility] [id number] [place] [address] 76009- 8644 Jun, Morbid obesity E66.01 and Uncontrolled type 2 diabetes mellitus with hyperglycemia E11.65 [facility] [id number] [place] [address] 06827- 3482 Jun, Uncontrolled type 2 diabetes mellitus with hyperglycemia E11.65 [facility] [place] [id number] [place] [address] 53813- 8009 May, [place] [address] [place] [address] 67708- 0076 May, [facility] [address] [place] [address] 68195- 8318 May, [facility] [id number] [place] [address] 66803- 1873 May, Renal insufficiency N28.9 ; BMI 50.0-59.9, adult Z68.43 and Weight gain, abnormal R63.5 [facility] [facility] [id number] [place] [address] 21888- 9367 May, Renal insufficiency N28.9 ; BMI 50.0-59.9, adult Z68.43 and Weight gain, abnormal R63.5 [facility] [address] [place] [address] 83027- 8900 Apr, Uncontrolled type 2 diabetes mellitus with hyperglycemia E11.65 and Weight gain, abnormal R63.5 [facility] [id number] [place] [address] 63651- 7684 Apr, [facility] [address] [place] [address] 31790- 9503 Apr, [facility] [id number] [place] [address] 52432- 1272 Apr, Uncontrolled type 2 diabetes mellitus with hyperglycemia E11.65 and Diabetes type 2, controlled E11.9 [facility] [id number] [place] [address] 47187- 0318 Apr, [facility] [address], [place] [address]- 0703 Apr, [facility] [address], [place] [address]- 5772 Apr, [facility] [address], [place] [address]- 6749 Mar, Uncontrolled type 2 diabetes mellitus without complication, without long-term current use of insulin E11.65 and BMI 50.0-59.9, adult Z68.43 [facility] [address], [place] [address]- 0128 Mar, [facility] [address], [place] [address]- 0956 Mar, [facility] [address] [address] 3334 Mar, [facility] [address], [place] [address]- 5118 Mar, [facility] [address], [place] [address]- 0824 Mar, Uncontrolled type 2 diabetes mellitus with hyperglycemia E11.65 and Diabetic polyneuropathy associated with type 2 diabetes mellitus E11.42 [facility] [id number] [place] [address] 10967- 3270 Feb, [facility] [id number] [place] [address] 27036- 5978 Feb, [facility] [id number] [place] [address] 04182- 5019 Feb, [facility] [id number] [place] [address] 77536- 2560 Feb, [facility] [id number] [place] [address] 18219- 2819 Feb, [facility] [id number] [place] [address] 24986- 5070 Feb, Fibromyalgia M79.7 and Uncontrolled type 2 diabetes mellitus without complication, without long-term current use of insulin E11.65 [facility] [id number] [place] [address] 94048- 3201 Jan, [facility] [id number] [place] [address] 22102- 4927 Jan, [facility] [id number] [place] [address] 26569- 9359 Jan, Uncontrolled type 2 diabetes mellitus without complication, without long-term current use of insulin E11.65 [facility] [address] [place] [address] 85786- 8203 Jan, [facility] [id number] [place] [address] 71829- 7975 Dec, Therapeutic drug monitoring Z51.81 and Controlled type 2 diabetes mellitus without complication, without long-term current use of insulin E11.9 [facility] [id number] [place] [address] 08901- 1653 Dec, Renal insufficiency N28.9 [facility] [id number] [place] [address] 29895- 6056 Dec, [facility] [id number] [place] [address] 30998- 2879 Dec, Dizziness R42 [facility] [address] 93217- 1266 Dec, Dizziness R42 and Encounter for immunization Z23 [facility] [address] 72745- 7718 Dec, Therapeutic drug monitoring Z51.81 and Controlled type 2 diabetes mellitus without complication, without long-term current use of insulin E11.9 [place] [id number] [place] [address] 67343- 3634 Dec, [facility] [address] 07997- 5871 Dec, [facility] [id number] [place] [address] 29597- 1332 Dec, [facility] [address] 88861- 3899 Nov, [facility] [id number] [place] [address] 55939- 6593 Nov, Therapeutic drug monitoring Z51.81 [facility] [id number] [place] [address] 66821- 5202 Nov, [facility] [id number] [place] [address] 07139- 5147 Nov, Therapeutic drug monitoring Z51.81 ; Fibromyalgia M79.7 and Controlled type 2 diabetes mellitus without complication, without long-term current use of insulin E11.9 [facility] [id number] [place] [address] 83757- 7360 Nov, Type 2 diabetes mellitus with hyperglycemia E11.65 [facility] [address], [place] [address]- 1063 Nov, [facility] [id number] [place] [address] 52054- 0934 Nov, [facility] [id number] [place] [address] 63082- 8048 Nov, Type 2 diabetes mellitus with hyperglycemia E11.65 [facility] [id number] [place] [address] 52136- 5360 Nov, [facility] [id number] [place] [address] 09929- 3689 Nov, [facility] [id number] [place] [address] 58886- 6256 Nov, Constipation K59.00 [facility] [id number] [place] [address] 73155- 4232 Oct, Diabetes type 2, controlled E11.9 [facility] [id number] [place] [address] 82199- 0641 Oct, Type 2 diabetes mellitus with hyperglycemia E11.65 ; meterman current use of insulin Z79.4 and Neuropathy G62.9 [facility] [address] [place] [address] 46722- 2450 Oct, [facility] [address], [place] [address]- 8385 Oct, [facility] [address], [place] [address]- 3499 Oct, [facility] [id number] [place] [address] 05786- 5544 Oct, [facility] [id number] [place] [address] 67979- 8367 Oct, [facility] [address], [place] [address]- 1880 Oct, [facility] [id number] [place] [address] 33545- 3648 Oct, [facility] [id number] [place] [address] 07187- 9047 Sep, [facility] [id number] [place] [address] 05456- 1552 Sep, Uncontrolled type 2 diabetes mellitus without complication, without long-term current use of insulin E11.65 [facility] [id number] [place] [address] 49922- 4267 Sep, Hypertension, benign I10 ; Fibromyalgia M79.7 ; Controlled type 2 diabetes mellitus without complication, without long-term current use of insulin E11.9 and Uncontrolled type 2 diabetes mellitus without complication, without long-term current use of insulin E11.65 [facility] [id number] [place] [address] 95954- 7172 Sep, [facility] [id number] [place] [address] 95306- 6751 Sep, Uncontrolled type 2 diabetes mellitus without complication, without long-term current use of insulin E11.65 [place] [id number] [place] [address] 29501- 7275 Sep, [place] [id number] [place] [address] 57402- 7342 Sep, [place] [address] [place] [address] 61421- 2063 Sep, Uncontrolled type 2 diabetes mellitus without complication, without long-term current use of insulin E11.65 and Fibromyalgia M79.7 [facility] [address], [place] [address]- 1841 August, [facility] [id number] [place] [address] 31562- 5136 August, [facility] [address], [place] [address]- 9511 August, [facility] [id number] [place] [address] 27132- 8032 August, Fibromyalgia M79.7 [facility] [id number] [place] [address] 21838- 6847 Jul, Hypertension, benign I10 [facility] [address] 06078- 0023 Jul, Fibromyalgia M79.7 [facility] [address] 76784- 6246 Jul, [facility] [address] 57208- 8651 Jun, [facility] [address] 38210- 8695 Jun, Hypertension, benign I10 ; Arthritis M19.90 ; meterman current use 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 Z79.891 and Uncontrolled type 2 diabetes mellitus without complication, without long-term current use of insulin E11.65 [facility] [address] 86650 -9620 Jun, Acute nasopharyngitis J00 and BMI 50.0-59.9, adult Z68.43 [place] [address] 52558- 8449 Jun, Fibromyalgia M79.7 [facility] [id number] [place] [address] 93442- 0801 May, [facility] [id number] [place] [address] 51938- 6368 May, Fibromyalgia M79.7 [facility] [address] 63088- 6788 Apr, Fibromyalgia M79.7 [facility] [address] 87970- 8280 Apr, [facility] [id number] [place] [address] 43009- 8865 Apr, [place] [id number] [place] [address] 54796 254 Apr, Arthritis M19.90 [facility] [address] 46565 2546 Apr, Arthritis M19.90 [facility] [id number] [place] [address] 89006 254 Apr, Arthritis M19.90 and Controlled type 2 diabetes mellitus without complication, without long-term current use of insulin E11.9 [facility] [id number] [place] [address] 04234- 2421 Apr, [facility] [address] 54323- 0186 Apr, Fibromyalgia M79.7 [facility] [address] 89071- 8714 Mar, [facility] [id number] [place] [address] 49354- 3683 Mar, [facility] [id number] [place] [address] 80691- 0897 Mar, Fibromyalgia M79.7 [facility] [id number] [place] [address] 35425- 6446 Feb, [facility] [id number] [place] [address] 12364- 1250 Feb, [facility] [id number] [place] [address] 68525 2541 Feb, [facility] [id number] [place] [address] 18761 2540 Feb, Fibromyalgia M79.7 [facility] [id number] [place] [address] 40443- 2545 Feb, Diabetes type 2, uncontrolled E11.65 and Encounter for immunization Z23 [facility] [address] 71087- 9165 Jan, [facility] [address], [place] [address]- 4014 Jan, Fibromyalgia M79.7 [facility] [id number], [place] [address]- 1815 Dec, [facility] [address], [place] [address]- 7393 Dec, Fibromyalgia M79.7 [facility] [id number] [place] [address] 84427- 6032 Nov, [facility] [id number] [place] [address] 84365- 4823 Nov, [facility] [id number] [place] [address] 40803- 7078 Nov, 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 and Polyneuropathy G62.9 [facility] [id number] [place] [address] 95532- 7848 Nov, [facility] [address], [place] [address]- 0358 Nov, [facility] [address] [place] [address] 85901- 1919 Oct, Diabetes type 2, uncontrolled E11.65 [facility] [address], [place] [address]- 6514 Oct, Diabetes type 2, uncontrolled E11.65 ; Polyneuropathy G62.9 and Pain in right wrist M25.531 [facility] [address], [place] [address]- 4710 Oct, [facility] [id number] [place] [address] 17675- 7221 Oct, Pain in left shoulder M25.512 [facility] [address], [place] [address]- 3150 Sep, [facility] [address], [place] [address]- 2450 Sep, Pain in left shoulder M25.512 [facility] [id number] [place] [address] 25351- 1776 Sep, [facility] [id number] [place] [address] 33570- 2847 August, Pain in left shoulder M25.512 [facility] [id number] [place] [address] 56521- 5364 Jul, [facility] [id number] [place] [address] 84292- 8080 Jul, [facility] [id number] [place] [address] 64141- 0206 Jul, Pain in left shoulder M25.512 [facility] [id number] [place] [address] 93220- 4361 Jun, [facility] [id number], [place] [address]- 8041 Jun, [facility] [id number] [place] [address] 44923- 4427 Jun, Diabetes type 2, uncontrolled E11.65 ; Fibromyalgia M79.7 and Arthritis M19.90 [facility] [id number] [place] [address] 34537- 6650 Jun, Pain in left shoulder M25.512 [facility] [id number] [address]- 0466 May, [facility] [id number] [place] [address] 30260- 8296 May, Diabetes type 2, controlled E11.9 [facility] [id number] [address]- 5336 May, [facility] [id number] [place] [address] 36652- 2840 15 May, 2016 Uncontrolled type 2 diabetes mellitus without complication, without long-term current use of insulin E11.65 [facility] [address] [place] [address] 79785- 4819 15 May, 2016 Pain in left shoulder M25.512 [facility] [id number] [place] [address] 07850- 0106 03 May, 2016 Diabetes type 2, controlled E11.9 and Uncontrolled type 2 diabetes mellitus without complication, without long-term current use of insulin E11.65 [facility] [address] [place] [address] 26239- 7779 Apr, [facility] [id number] [place] [address] 48352- 1175 Apr, [facility] [id number] [place] [address] 12943- 3827 Mar, [facility] [id number] [place] [address] 95927- 2029 Mar, [facility] [id number] [place] [address] 96243- 4467 Mar, [facility] [id number] [place] [address] 97487- 2594 Feb, [facility] [address] [place] [address] [id number] Feb, Dental examination Z01.20 [facility] [address] [place] [address] 87740- 2153 Jan, [facility] [id number] [place] [address] 24864- 6661 14 Dec, 2015 [facility] [id number] [place] [address] 525363- 2884 Dec, [facility] [id number] [place] [address] 988844- 4044 Dec, [facility] [id number] [place] [address] 64325- 7726 Dec, Diabetes type 2, controlled E11.9 [facility] [id number] [place] [address]- 8936 Nov, [facility] [address] [id number] [address]- 7094 Nov, [facility] [address] [id number], [place] [address]- 3664 Nov, [facility] [address] [facility] [id number], [place] [address] Nov, [facility] [address] [facility] [id number] [place] [address] Oct, [facility] [address] [facility] [id number] [place] [address] Oct, [facility] [address] [facility] [id number], [place] [address] Oct, [facility] [address] [facility] [id number], [place] [address] Sep, [facility] [address] [facility] [id number], [place] [address] Sep, Diabetes type 2, controlled E11.9 [facility] [address] [facility] [id number], [place] [address] Sep, Diabetes type 2, controlled E11.9 [facility] [address] [facility] [id number], [place] [address]287 August, [facility] [address] [facility] [id number], [place] [address] 0185 August, [facility] [address] [facility] [id number], [place] [address]3 August, Type 2 diabetes mellitus without complication E11.9 and Pain in left shoulder M25.512 [facility] [address] [facility] [id number], [place] [address] 9755 Jul, [facility] [address], [place] [address] Jul, Diabetes type 2, controlled E11.9 and Hypertension, benign I10 [facility] [id number] [place] [address] 99843- 0544 Jun, [facility] [id number] [place] [address] 01418- 4469 Jun, [facility] [id number] [place] [address] 25020- 2738 Jun, Diabetes 250.00 [facility] [id number] [place] [address] 29290- 9525 Jun, [facility] [id number] [place] [address] 65232- 8547 May, Diabetes type 2, uncontrolled E11.65 [facility] [id number] [place] [address] 46110- 5447 May, [facility] [id number] [place] [address] 11185- 4096 Apr, Type 2 diabetes mellitus without complication E11.9 [facility] [id number] [place] [address] 84328- 0720 Apr, Encounter for immunization Z23 [facility] [id number] [place] [address] 87204- 1051 Apr, [facility] [id number] [place] [address] 53570- 4462 Mar, [facility] [id number] [place] [address] 47075- 6343 Mar, [facility] [id number] [place] [address] 16496- 0828 Mar, [facility] [id number] [place] [address] 27590- 5798 Feb, [facility] [address], [place] [address]- 4897 Jan, [facility] [address]65[address], [place] [address]- 6430 Jan, [facility] [address], [place] [address]- 0291 Jan, [facility] [id number] [place] [address] 91496- 0833 Dec, Diabetes 250.00 and COPD (chronic obstructive pulmonary disease) 496 [facility] [id number] [place] [address] 39106- 1079 Dec, [facility] [id number] [place] [address] 11867- 8451 Dec, [facility] [id number] [place] [address] 88099- 0170 Nov, [facility] [id number] [place] [address] 15427- 4856 Oct, Diabetes 250.00 [facility] [id number] [place] [address] 07495- 9884 Sep, [facility] [address], [place] [address]- 7569 Sep, [facility] [address], [place] [address]- 2662 Sep, [facility] [id number] [place] [address] 67715- 9529 Sep, Diabetes 250.00 [facility] [address], [place] [address]- 7952 Sep, [facility] [address] [id number], [place] [address]- 2811 Sep, [facility] [address], [place] [address]- 4790 August, Hypertension, essential, benign 401.1 ; Coronary atherosclerosis of [place] coronary artery 414.01 and Diabetic neuropathy associated with type 2 diabetes mellitus 250.60 [facility] [address]65[address], [place] [address]- 3463 29 Jul, 2014 [facility] [id number] [place] [address]- 7632 14 Jul, 2014 [facility] [id number] [place] [address] 43899- 0412 Jul, [facility] [id number] [place] [address] 08873- 7810 Jun, [facility] [id number] [place] [address] 64485- 4970 Jun, [facility] [id number] [place] [address] 13406- 1455 Jun, [facility] [id number] [place] [address] 82934- 9019 Jun, [facility] [address], [place] [address]- 2652 Jun, [facility] [id number] [place] [address] 51068- 6986 May, [facility] [address], [place] [address]- 2202 May, [facility] [address], [place] [address]- 3311 May, [facility] [address], [place] [address] 2540 May, [facility] [address], [place] [address]- 4380 May, [facility] [address] 1601 May, [facility] [address], [place] [address]- 2946 May, [facility] [place] [facility] [address] [id number] [place] [address]- 4803 Apr, [facility] [place] [facility] [address] [id number] [place] [address]- 3132 Apr, [facility] [place] [facility] [address] [id number] [place] [address]- 1664 Apr, [facility] [place] [facility] [address] [id number] [place] [address]- 2095 Apr, [facility] [place] [facility] [address] [id number] [place] [address]- 3171 Mar, [facility] [place] [facility] [address] [id number] [place] [address]- 0781 Mar, [facility] [place] [facility] [address] [id number] [place] [address]- 1004 Mar, [facility] [place] [facility] [address] [id number] [place] [address]- 9086 Mar, [facility] [place] [facility] [address] [id number] [place] [address]- 1903 Feb, [facility] [place] [facility] [address] [id number] [place] [address]- 5366 Feb, [facility] [place] [facility] [address] [id number], [place] [address]- 5080 Feb, [facility] [place] [facility] [address] [id number], [place] [address]- 8173 Feb, [facility] [place] [facility] [address] [id number] [place] [address]- 6677 Feb, [facility] [place] [facility] [address] [id number], [place] [address]- 6083 Feb, [facility] [place] [facility] [address] [id number] [place] [address]- 1619 Feb, [facility] [place] [facility] [address] [id number] [place] [address]- 2800 Jan, [facility] [place] [facility] [address] [id number] [place] [address]- 4007 Jan, [facility] [place] [facility] [address] [id number] [place] [address]- 4413 Dec, 2013 [facility] [place] [facility] [address] [id number] [place] [address]- 8832 Dec, 2013 [facility] [place] [facility] [address] [id number] [place] [address]- 0080 Dec, 2013 [facility] [place] [facility] [address] [id number] [place] [address]- 3276 10 Dec, 2013 [facility] [place] [facility] [address] [id number] [place] [address]- 2834 Dec, [facility] [place] [facility] [address] [id number] [place] [address]- 7881 Dec, [facility] [place] [facility] [address] [id number] [place] [address]- 9759 Dec, [facility] [place] [facility] [address] [id number] [place] [address]- 0700 Dec, [facility] [place] [facility] [address] [id number] [place] [address]- 6504 Nov, [facility] [place] [facility] [address] [id number] [place] [address]- 9708 Nov, [facility] [place] [facility] [address] [id number] [place] [address]- 2145 Nov, [facility] [place] [facility] [address] [id number] [place] [address]- 7617 Nov, [facility] [place] [facility] [address] [id number] [place] [address]- 4737 Oct, [facility] [place] [facility] [address] [id number] [place] [address]- 3400 Oct, [facility] [place] [facility] [address] [id number] [place] [address]- 3500 Oct, [facility] [place] [facility] [address] [id number] [place] [address]- 5330 Oct, [facility] [place] [facility] [address] [id number] [place] [address]- 8805 Oct, [facility] [place] [facility] [address] [id number] [place] [address]- 7201 Oct, [facility] [place] [facility] [address] [id number] [place] [address]- 3673 Oct, [facility] [place] [facility] [address] [id number] [place] [address]- 3572 Oct, [facility] [place] [facility] [address] [id number] [place] [address]- 9696 Sep, [facility] [place] [facility] [address] [id number] [place] [address]- 1176 Sep, [facility] [place] [facility] [address] [id number] [place] [address]- 6426 August, [facility] [place] [facility] [address] [id number] [place] [address]- 8893 August, [facility] [place] [facility] [address] [id number] [place] [address]- 7019 Jul, [facility] [place] [facility] [address] [id number] [place] [address]- 0494 Jul, [facility] [place] [facility] [address] [id number] [place] [address]- 5902 Jul, [facility] [place] [facility] [address] [id number] [place] [address]- 0981 Jul, [facility] [place] [facility] [address] [id number] [place] [address]- 9069 Jul, [facility] [place] [facility] [address] [id number], [place] [address]- 2382 Jul, [facility] [address] [id number] [place] [address]- 0015 Jul, [facility] [place] [facility] [address] [id number] [place] 5053 Jul, [facility] [place] [facility] [address] [facility] [id number] [place] [address]- 2107 Jun, [facility] [place] [facility] [address] [id number] [place] [address]- 6825 Jun, [facility] [place] [facility] [address] [id number] [place] [address]- 8255 Jun, [facility] [place] [facility] [address] [facility] [id number] [place] [address]- 2888 Jun, [facility] [place] [facility] [address] [facility] [id number] [place] [address]- 8406 May, [facility] [place] [facility] [address] [facility] [id number] [place] [address]- 4934 May, [facility] [place] [facility] [address] [facility] [id number] [place] [address]- 8672 Apr, [facility] [place] [facility] [address] [facility] [id number] [place] [address]- 7617 Apr, [facility] [place] [facility] [address] [facility] [id number] [place] [address]- 2371 Mar, [facility] [place] [facility] [address] [id number] [place] [address]- 5521 Mar, [facility] [place] [facility] [address] [id number] [place] [address]- 7362 Mar, [facility] [place] [facility] [address] [facility] [id number] [place] [address]- 5620 Mar, [facility] [place] [facility] [address] [facility] [id number] [place] [address]- 0677 Mar, [facility] [place] [facility] [address] [id number] [place] [address]- 1928 Mar, [facility] [place] [facility] [address] [id number] [place] [address]- 8259 Feb, [facility] [place] [facility] [address] [id number] [place] [address]- 4337 Feb, [facility] [place] [facility] [address] [id number] [place] [address]- 1614 Feb, [facility] [place] [facility] [address] [id number] [place] [address]- 7684 Feb, [facility] [place] [facility] [address] [id number] [place] [address]- 5358 Feb, [facility] [place] [facility] [address] [id number] [place] [address]- 4142 Feb, [facility] [place] [facility] [address] [id number] [place] [address]- 1565 Feb, [facility] [place] [facility] [address] [id number] [place] [address]- 7062 Feb, [facility] [place] [facility] [address] [id number] [place] [address]- 1144 15 Jan, 2013 [facility] [place] [facility] [address] [id number] [place] [address]- 8342 15 Jan, 2013 [facility] [place] [facility] [address] [id number] [place] [address]- 5284 14 Jan, 2013 [facility] [place] [facility] [address] [id number] [place] [address]- 2333 14 Jan, 2013 [facility] [place] [facility] [address] [id number] [place] [address]- 2768 18 Dec, 2012 [facility] [place] [facility] [address] [id number] [place] [address]- 6880 13 Dec, 2012 [facility] [place] [facility] [address] [id number] [place] [address]- 1339 Dec, [facility] [place] [facility] [address] [id number] [place] [address]- 6074 Nov, [facility] [place] [facility] [address] [id number] [place] [address]- 4156 Nov, [facility] [place] [facility] [address] [id number] [place] [address]- 4831 Oct, [facility] [place] [facility] [address] [id number] [place] [address]- 7616 Oct, [facility] [place] [facility] [address] [id number] [place] [address]- 8551 Oct, [facility] [place] [facility] [address] [id number] [place] [address]- 4033 Sep, [facility] [place] [facility] [address] [id number] [place] [address]- 4494 Sep, [facility] [place] [facility] [address] [id number] [place] [address]- 8626 Sep, [facility] [place] [facility] [address] [id number] [place] [address]- 9905 Sep, [facility] [place] [facility] [address] [id number] [place] [address]- 5350 Sep, [facility] [place] [facility] [address] [id number] [place] [address]- 3216 Sep, [facility] [place] [facility] [address] [id number] [place] [address]- 8601 August, [facility] [place] [facility] [address] [id number] [place] [address]- 6532 August, [facility] [place] [facility] [address] [id number] [place] [address]- 3453 August, [facility] [place] [facility] [address] [id number] [place] [address]- 7056 August, [facility] [place] [facility] [address] [id number] [place] [address]- 0974 August, [facility] [address] [id number] [place] [address]- 7126 August, [facility] [address] [id number] [place] [address]- 7986 August, [facility] [address] [id number] [place] [address]- 9283 Jul, [facility] [address] [id number] [place] [address]- 1426 Jul, [facility] [address] [id number] [place] [address]- 7086 Jun, [facility] [address] [id number] [place] [address]- 9368 Jun, [facility] [address] [id number] [place] [address]- 7590 May, [facility] [address] [id number] [place] [address]- 3715 May, [facility] [address] [id number] [place] [address]- 2536 Apr, [facility] [address] [id number] [place] [address]- 3402 Mar, [facility] [address] [id number] [place] [address] 2544 Mar, [facility] [address] [id number] [place] 4581 Mar, [facility] [address] [id number] [place] [address]- 8558 Mar, [facility] [address] [id number] [place] [address]- 3556 Mar, [facility] [address] [id number] [place] 6597 Mar, [facility] [place] [facility] [address] [id number] [place] [address]- 5650 Feb, [facility] [place] [facility] [address] [id number] [place] [address]- 8575 Feb, [facility] [place] [facility] [address] [id number] [place] [address]- 1096 Feb, [facility] [place] [facility] [address] [id number] [place] [address]- 2354 Feb, [facility] [place] [facility] [address] [id number] [place] [address]- 3022 Feb, [facility] [place] [facility] [address] [id number] [place] [address]- 2197 Feb, [facility] [place] [facility] [address] [facility] [id number] [place] [address]- 9855 Feb, [facility] [place] [facility] [address] [id number], [place] [address]- 2193 Feb, [facility] [place] [facility] [address] [id number], [place] [address]- 3831 Jan, [facility] [place] [facility] [address] [facility] [id number], [place] [address]- 2723 Jan, [facility] [place] [facility] [address] [id number], [place] [address]- 8370 28 Dec, 2011 [facility] [place] [facility] [address] [id number], [place] [address]- 7120 19 Dec, 2011 [facility] [place] [facility] [address] [id number], [place] [address]- 1956 18 Dec, 2011 [facility] [place] [facility] [address] [id number], [place] [address]- 3270 18 Dec, 2011 [facility] [place] [facility] [address] [facility] [id number], [place] [address]- 7816 04 Dec, 2011 [facility] [place] [facility] [address] [id number], [place] [address]- 7231 Nov, [facility] [place] [facility] [address] [id number] [place] [address]- 5081 Oct, [facility] [place] [facility] [address] [id number] [place] [address]- 9662 Oct, [facility] [place] [facility] [address] [id number] [place] [address]- 1190 Sep, [facility] [place] [facility] [address] [id number] [place] [address]- 8245 Sep, [facility] [place] [facility] [address] [id number] [place] [address]- 3655 Sep, [facility] [place] [facility] [address] [id number] [place] [address]- 5069 Sep, [facility] [place] [facility] [address] [id number] [place] [address]- 3718 Sep, [facility] [place] [facility] [address] [id number] [place] [address]- 1786 Sep, [facility] [place] [facility] [address] [id number] [place] [address]- 8381 Sep, [facility] [place] [facility] [address] [id number] [place] [address]- 0170 Sep, [facility] [place] [facility] [address] [id number] [place] [address]- 7898 August, [facility] [place] [facility] [address] [id number] [place] [address]- 0816 August, [facility] [place] [facility] [address] [id number] [place] [address]- 3428 August, [facility] [place] [facility] [address] [facility] [id number] [place] [address] Jul, [facility] [place] [facility] [address] [facility] [id number] [place] [address] Jul, [facility] [place] [facility] [address] [id number] [place] [address] Jun, [facility] [place] [facility] [address] [id number] [place] [address] Jun, [facility] [place] [facility] [address] [id number] [place] [address] Jun, [facility] [place] [facility] [address] [id number] [place] [address] Jun, [facility] [place] [facility] [address] [id number] [place] [address] May, [facility] [place] [facility] [address] [id number] [place] [address] May, [facility] [place] [facility] [address] [id number] [place] [address] Apr, [facility] [place] [facility] [address] [id number] [place] [address] Apr, [facility] [place] [facility] [address] [id number] [place] [address] Apr, [facility] [place] [facility] [address] [id number] [place] [address] Mar, [facility] [place] [facility] [address] [id number] [place] [address] Mar, [facility] [place] [facility] [address] [id number] [place] [address] Mar, [facility] [place] [facility] [address] [id number] [place] [address] Feb, [facility] [place] [facility] [address] [id number] [place] [address] Feb, [facility] [place] [facility] [address] [id number] [place] [address] Feb, [facility] [place] [facility] [address] [id number] [place] [address] 09 Feb, 2011 [facility] [place] [facility] [address] [id number] [place] [address] 25 Jan, 2011 [facility] [place] [facility] [address] [id number] [place] [address] 14 Jan, 2011 [facility] [place] [facility] [address] [id number] [place] [address] 12 Jan, 2011 [facility] [place] [facility] [address] [id number] [place] [address] 16 Dec, 2010 [facility] [place] [facility] [address] [id number] [place] [address] Oct, [facility] [place] [facility] [address] [id number] [place] [address] 24 Mar, 2010 [facility] [place] [facility] [address] [id number] [place] [address] Feb, [facility] [place] [facility] [address] [id number], [place] [address] Feb, [facility] [place] [facility] [address] [id number] [place] [address] 16 May, 2009 [facility] [place] [facility] [address] [id number], [place] [address] Apr, [facility] [place] [facility] [address] [id number], [place] [address] 29 Mar, 2009 [facility] [place] [facility] [address] [id number], [place] [address] 30 Jan, 2009 [facility] [place] [facility] [address] [id number] [place] [address] 15 Oct, 2008 [facility] [place] [facility] [address] [facility] [id number], [place] [address] 16 Jul, 2008 [facility] [place] [facility] [address] [facility] [id number] [place] [address] 04 Mar, 2008 [facility] [place] [facility] [address] [facility] [id number] [place] [address] Feb, [facility] [address] [facility] [id number] [place] [address] Jan, IMMUNIZATIONS No Known Immunizations SOCIAL HISTORY Never Assessed REASON FOR VISIT [facility] [place] PLAN OF CARE VITAL SIGNS MEDICATIONS No Known Medications RESULTS No Results PROCEDURES No Known [...] surgeries Hospitalization History falls 11/01/2017 Hospitalization History [facility] Pneumonia 07/05-07/09
--- OUTSIDE RECORDS SUMMARY | 2018-08-27 14:44 | XMS REPORT ---
Author Author Migration, Doctor Organization [facility] Address Unknown Phone Unavailable Care Team Providers Care Reporting Manager Name Role Phone Migration, Doctor Unavailable Unavailable PROBLEMS Type Condition ICD9-CM Code AYE74-LF Code Onset Dates Condition Status SNOMED Code Problem Obstructive sleep apnea G47.33 Active 70235507 Problem Stress incontinence of urine N39.3 Active 54170619 Problem Uncontrolled type 2 diabetes mellitus without complication, without long-term current use of insulin E11.65 Active 703675380 Problem Hypertension, benign I10 Active 46465884 Problem Fibromyalgia M79.7 Active 279926696 Problem Arthritis M19.90 Active 6762343 Problem Controlled type 2 diabetes mellitus without complication, without long -term current use of insulin E11.9 Active 723006149 Problem Type 2 diabetes mellitus with hyperglycemia E11.65 Active 813366326 Problem Neuropathy G62.9 Active 598385302 Problem Uncontrolled type 2 diabetes mellitus with hyperglycemia E11.65 Active 295374798 Problem 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 Active 97929853 Problem BMI 50.0-59.9, adult Z68.43 Active 606826444 Problem Polyneuropathy G62.9 Active 58844146 Problem 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 [id number] [address] Jul, [facility] [id number] [place] [address] 28999- 7817 Jun, [facility] [id number] [place] [address] 71900- 6432 Jun, [facility] [id number] [place] [address] 95258- 8772 Jun, [place] [address] [address] 7895 Jun, [facility] [id number] [place] [address] 241928- 8597 Jun, Morbid obesity E66.01 and Uncontrolled type 2 diabetes mellitus with hyperglycemia E11.65 [facility] [address] [place] [address] 94432- 5476 Jun, Uncontrolled type 2 diabetes mellitus with hyperglycemia E11.65 [facility] [address] [place] [address] 02490- 7516 May, [facility] [id number] [place] [address] 849923- 7617 May, [facility] [id number] [place] [address] 16881- 5715 May, [facility] [address] [place] [address] 97424- 2926 May, Renal insufficiency N28.9 ; BMI 50.0-59.9, adult Z68.43 and Weight gain, abnormal R63.5 [place] [facility] [address] [place] [address] 70021- 3896 May, Renal insufficiency N28.9 ; BMI 50.0-59.9, adult Z68.43 and Weight gain, abnormal R63.5 [place] [address] [address] 7887 Apr, Uncontrolled type 2 diabetes mellitus with hyperglycemia E11.65 and Weight gain, abnormal R63.5 [facility] [address] [address] 9431 Apr, [facility] [address] [place] [address] 44206- 0584 Apr, [facility] [address] [address] 2317 Apr, Uncontrolled type 2 diabetes mellitus with hyperglycemia E11.65 and Diabetes type 2, controlled E11.9 [facility] [address] [address]- 6718 Apr, [facility] [address] [address]- 5536 Apr, [facility] [address] [address]- 6282 Apr, [facility] [id number] [place] [address] 37553- 6292 Mar, Uncontrolled type 2 diabetes mellitus without complication, without long-term current use of insulin E11.65 and BMI 50.0-59.9, adult Z68.43 [facility] [address] [address] 3538 Mar, [facility] [address] [address]- 1756 Mar, [facility] [address] [address]- 3392 Mar, [facility] [address] [address]- 9009 Mar, [facility] [address] [address]- 3151 Mar, Uncontrolled type 2 diabetes mellitus with hyperglycemia E11.65 and Diabetic polyneuropathy associated with type 2 diabetes mellitus E11.42 [facility] [address] [address] 0108 Feb, [facility] [address] [address]- 2893 Feb, [facility] [address] [address]- 8468 Feb, [facility] [address] [address] 1954 Feb, [facility] [id number] [place] [address] 66838- 7239 Feb, [place] [facility] [id number] [place] [address] 1186 Feb, Fibromyalgia M79.7 and Uncontrolled type 2 diabetes mellitus without complication, without long-term current use of insulin E11.65 [facility] [id number] [place] [address] 18321- 3080 Jan, [place] [address] 655405- 7243 Jan, [facility] [id number] [place] [address] 360875- 4865 Jan, Uncontrolled type 2 diabetes mellitus without complication, without long-term current use of insulin E11.65 [facility] [id number] [place] [address] 54091- 3422 Jan, [facility] [place] [address] 30225- 8566 Dec, Therapeutic drug monitoring Z51.81 and Controlled type 2 diabetes mellitus without complication, without long-term current use of insulin E11.9 [facility] [id number] [place] [address] 77253- 2075 Dec, Renal insufficiency N28.9 [facility] [id number] [place] [address] 43825 2548 Dec, [facility] [id number] [place] [address] 25531- 5340 Dec, Dizziness R42 [facility] [id number] [place] [address] 24724- 1221 Dec, Dizziness R42 and Encounter for immunization Z23 [facility] [id number] [place] [address] 96030- 0943 Dec, Therapeutic drug monitoring Z51.81 and Controlled type 2 diabetes mellitus without complication, without long-term current use of insulin E11.9 [facility] [address] [address]- 8281 Dec, [facility] [id number] [place] [address] 94796- 5139 Dec, [facility] [id number] [place] [address] 03780- 5779 Dec, [facility] [id number] [place] [address] 14431- 6081 Nov, [facility] [id number] [place] [address] 81229- 3129 Nov, Therapeutic drug monitoring Z51.81 [facility] [id number] [place] [address] 40606- 0974 Nov, [facility] [id number] [place] [address] 99450- 8889 Nov, Therapeutic drug monitoring Z51.81 ; Fibromyalgia M79.7 and Controlled type 2 diabetes mellitus without complication, without long-term current use of insulin E11.9 [facility] [address] [address]- 1699 Nov, Type 2 diabetes mellitus with hyperglycemia E11.65 [facility] [id number] [place] [address] 08551- 0779 Nov, [facility] [address] [place] [address] 39837- 9332 Nov, [facility] [address] [place] [address] 91387- 9554 Nov, Type 2 diabetes mellitus with hyperglycemia E11.65 [facility] [id number] [place] [address] 75920- 7175 Nov, [facility] [id number] [place] [address] 35207- 7931 Nov, [facility] [address] [place] [address] 74594- 0370 06 Aug, 2018 Constipation K59.00 [facility] [address] [address]- 4523 Oct, Diabetes type 2, controlled E11.9 [facility] [address] [address]- 3203 Oct, Type 2 diabetes mellitus with hyperglycemia E11.65 ; FDC current use of insulin Z79.4 and Neuropathy G62.9 [facility] [address] [address]- 4497 Oct, [facility] [address] [address]- 2506 Oct, [facility] [id number] [address]- 2348 Oct, [facility] [id number] [address]- 6952 Oct, [facility] [id number] [address]- 9260 Oct, [facility] [address] [address]- 5853 Oct, [facility] [address] [address]- 9404 Oct, [facility] [address] [address]- 4883 Sep, [facility] [address] [address]- 6286 Sep, Uncontrolled type 2 diabetes mellitus without complication, without long-term current use of insulin E11.65 [facility] [address] [address]- 7241 Sep, Hypertension, benign I10 ; Fibromyalgia M79.7 ; Controlled type 2 diabetes mellitus without complication, without long-term current use of insulin E11.9 and Uncontrolled type 2 diabetes mellitus without complication, without long-term current use of insulin E11.65 [facility] [address] [address]- 1365 Sep, [facility] [id number] [place] [address] 10475- 1271 Sep, Uncontrolled type 2 diabetes mellitus without complication, without long-term current use of insulin E11.65 [facility] [id number] [place] [address] 55629 2546 Sep, [facility] [address] 36290- 5484 Sep, [facility] [id number] [place] [address] 87549- 3266 Sep, Uncontrolled type 2 diabetes mellitus without complication, without long-term current use of insulin E11.65 and Fibromyalgia M79.7 [facility] [id number] [place] [address] 77835- 4854 August, [facility] [address] 81198- 9620 August, [facility] [id number] [place] [address] 11559- 2775 August, [facility] [id number] [place] [address] 85736- 4764 August, Fibromyalgia M79.7 [facility] [id number] [place] [address] 24987- 3403 Jul, Hypertension, benign I10 [facility] [id number] [place] [address] 41540- 0451 Jul, Fibromyalgia M79.7 [facility] [id number] [place] [address] 352089- 0975 Jul, [facility] [id number] [place] [address] 26521419- 7680 Jun, [facility] [id number] [place] [address] 88718- 0261 14 Mar, 2018 Hypertension, benign I10 ; Arthritis M19.90 ; FDC current use 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 Z79.891 and Uncontrolled type 2 diabetes mellitus without complication, without long-term current use of insulin E11.65 [facility] [id number] [place] [address] 94702 -7426 Jun, Acute nasopharyngitis J00 and BMI 50.0-59.9, adult Z68.43 [facility] [address] 87742- 5117 Jun, Fibromyalgia M79.7 [facility] [id number] [place] [address] 52867- 2836 May, [facility] [address] 14880- 5035 May, Fibromyalgia M79.7 [facility] [id number] [place] [address] 96527- 9829 Apr, Fibromyalgia M79.7 [facility] [id number] [place] [address] 24236- 3510 Apr, [facility] [id number] [place] [address] 75650- 6371 Apr, [facility] [id number] [place] [address] 10831- 4882 Apr, Arthritis M19.90 [facility] [id number] [place] [address] 21785 254 Apr, Arthritis M19.90 [facility] [id number] [place] [address] 51963 2545 Apr, Arthritis M19.90 and Controlled type 2 diabetes mellitus without complication, without long-term current use of insulin E11.9 [facility] [id number] [place] [address] 33555- 8176 Apr, [facility] [id number] [place] [address] 64592- 4066 Apr, Fibromyalgia M79.7 [facility] [id number] [place] [address] 23650- 9417 Mar, [facility] [id number] [place] [address] 78669- 6006 Mar, [facility] [id number] [place] [address] 20142- 2852 Mar, Fibromyalgia M79.7 [facility] [id number] [place] [address] 51670- 3724 Feb, [facility] [id number] [place] [address] 67134- 3425 Feb, [facility] [id number] [place] [address] 78879- 0416 Feb, [facility] [address] 40788- 6778 Feb, Fibromyalgia M79.7 [facility] [id number] [place] [address] 62962- 2155 Feb, Diabetes type 2, uncontrolled E11.65 and Encounter for immunization Z23 [facility] [id number] [place] [address] 52353- 4859 Jan, [facility] [id number] [place] [address] 11830- 6983 Jan, Fibromyalgia M79.7 [facility] [id number] [place] [address] 92720- 0645 Dec, [facility] [id number] [place] [address] 16327- 7254 Dec, Fibromyalgia M79.7 [facility] [id number] [place] [address] 28375- 0782 Nov, [facility] [id number] [place] [address] 34412- 9477 Nov, 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 [id number] [place] [address] 89955- 4638 Nov, [facility] [id number] [place] [address] 07849- 1877 Nov, [facility] [id number] [place] [address] 92220- 5132 Oct, Diabetes type 2, uncontrolled E11.65 [facility] [id number] [place] [address] 23822- 7214 Oct, Diabetes type 2, uncontrolled E11.65 ; Polyneuropathy G62.9 and Pain in right wrist M25.531 [facility] [id number] [place] [address] 48938- 0598 Oct, [facility] [id number] [place] [address] 02269- 5943 Oct, Pain in left shoulder M25.512 [facility] [id number] [place] [address] 36747- 8964 Sep, [facility] [id number] [place] [address] 41501- 9298 Sep, Pain in left shoulder M25.512 [facility] [address] [address]- 6111 Sep, [facility] [id number] [place] [address] 59403- 5796 August, Pain in left shoulder M25.512 [facility] [id number] [place] [address] 91896- 0447 Jul, [facility] [address] [address]- 9649 Jul, [facility] [id number] [place] [address] 61866- 4446 Jul, Pain in left shoulder M25.512 [facility] [address] [address]- 3447 Jun, [facility] [id number] [place] [address] 91246- 7866 Jun, [facility] [id number] [place] [address] 80810- 1876 Jun, Diabetes type 2, uncontrolled E11.65 ; Fibromyalgia M79.7 and Arthritis M19.90 [facility] [id number] [place] [address] 15130- 0454 Jun, Pain in left shoulder M25.512 [facility] [id number] [place] [address] 90132- 5184 May, [facility] [id number] [place] [address] 59966- 4516 May, Diabetes type 2, controlled E11.9 [facility] [address] [place] [address] 88336- 9585 May, [facility] [id number] [place] [address] 23149- 2389 May, Uncontrolled type 2 diabetes mellitus without complication, without long-term current use of insulin E11.65 [facility] [address] [address]- 6432 May, Pain in left shoulder M25.512 [facility] [address] [address]- 0394 May, Diabetes type 2, controlled E11.9 and Uncontrolled type 2 diabetes mellitus without complication, without long-term current use of insulin E11.65 [facility] [address] [address]- 3330 Apr, [facility] [address] [address]- 7021 Apr, [facility] [address] [id number] [place] [address]- 3707 Mar, [facility] [address] [id number] [place] [address]- 9223 Mar, [facility] [address] [id number] [place] [address]- 6924 Mar, [facility] [address] [id number] [place] [address]- 1579 Feb, [facility] [address] [id number] [place] [id number] Feb, Dental examination Z01.20 [facility] [address] [id number] [place] [address]- 1205 Jan, [facility] [address] [id number] [place] [address]- 8315 Dec, [facility] [address] [id number] [address]- 0950 Dec, [facility] [address] [id number] [place] [address]- 1207 Dec, [facility] [id number] [place] [address]- 7214 Dec, Diabetes type 2, controlled E11.9 [facility] [address] [id number] [place] [address]- 3891 Nov, [facility] [address] [id number] [address]- 4018 Nov, [facility] [address] [id number] [place] [address]- 7545 Nov, [facility] [address] [id number] [place] [address]- 9411 Nov, [facility] [address] [id number] [place] [address]- 9627 Oct, [facility] [address] [address]- 5828 Oct, [facility] [address] [address]- 5498 Oct, [facility] [address] [address]- 5862 Sep, [facility] [id number] [place] [address] 27321- 6917 Sep, Diabetes type 2, controlled E11.9 [facility] [address] [place] [address] 46427 2540 Sep, Diabetes type 2, controlled E11.9 [facility] [id number] [place] [address] 90404- 2729 August, [facility] [id number] [place] [address] 36466- 7578 August, [facility] [id number] [place] [address] 19716- 1899 August, Type 2 diabetes mellitus without complication E11.9 and Pain in left shoulder M25.512 [facility] [address] [address]- 1100 Jul, [facility] [address] [address]- 6402 Jul, Diabetes type 2, controlled E11.9 and Hypertension, benign I10 [facility] [address] [address]- 3432 Jun, [facility] [address] [address] 2546 Jun, [facility] [address] [address]- 2549 Jun, Diabetes 250.00 [facility] [address] [place] [address]- 2546 Jun, [facility] [id number] [place] [address]16- 5953 24 May, 2015 Diabetes type 2, uncontrolled E11.65 [facility] [id number] [place] [address]1003- 2002 May, [facility] [id number] [place] [address] 95138- 4531 Apr, Type 2 diabetes mellitus without complication E11.9 [facility] [address] [address]- [address] Apr, Encounter for immunization Z23 [facility] [id number] [place] [address] 81427- 0769 Apr, [facility] [id number] [place] [address] 13633- 6142 Mar, [facility] [id number] [place] [address] 89891- 3023 Mar, [facility] [id number] [place] [address] 93542- 8815 Mar, [facility] [id number] [place] [address] 08002- 8830 Feb, [facility] [id number] [place] [address] 11503- 8289 Jan, [facility] [id number] [place] [address] 96903- 9946 Jan, [facility] [id number] [place] [address] 17101- 4026 Jan, [facility] [id number] [place] [address] 91303- 5882 Dec, Diabetes 250.00 and COPD (chronic obstructive pulmonary disease) 496 [facility] [id number] [place] [address] 06750- 6470 Dec, [facility] [id number] [place] [address] 93824- 3939 Dec, [facility] [id number] [address] Nov, [facility] [id number] [address]673 Oct, Diabetes 250.00 [facility] [id number] Sep, [facility] [id number] [address] Sep, [facility] [id number] [address] [address] Sep, [facility] [id number] [address] [address] Sep, Diabetes 250.00 [facility] [id number] [address] Sep, [facility] [facility] [id number] [address] Sep, [facility] [id number] [address] [address] August, Hypertension, essential, benign 401.1 ; Coronary atherosclerosis of [place] coronary artery 414.01 and Diabetic neuropathy associated with type 2 diabetes mellitus 250.60 [facility] [id number] [address] Jul, [facility] [id number] [address] [address] Jul, [facility] [id number] [address] [address] Jul, [facility] [id number] [address] Jun, [facility] [id number] [address] Jun, [facility] [id number] [place] [address] Jun, [facility] [place] [facility] [address] [id number] [place] [address] 33[address] Jun, [facility] [place] [facility] [address] [id number] [place] [address]- 7401 Jun, [facility] [place] [facility] [address] [id number] [place] [address]- 9259 May, 2014 [facility] [place] [facility] [address] [id number] [place] [address]- 9046 May, [facility] [place] [facility] [address] [id number] [place] [address]- 6952 May, 2014 [facility] [place] [facility] [address] [id number] [place] [address]- 9228 May, [facility] [place] [facility] [address] [id number] [place] [address]- 4703 May, [facility] [place] [facility] [address] [id number] [place] [address]- 2398 May, [facility] [place] [facility] [address] [facility] [id number] [place] [address]- 2858 May, [facility] [place] [facility] [address] [facility] [id number] [place] [address]- 0561 Apr, [facility] [place] [facility] [address] [id number] [place] [address]- 8483 Apr, [facility] [place] [facility] [address] [id number] [place] [address]- 7726 Apr, [facility] [place] [facility] [address] [id number] [place] [address]- 4935 Apr, [facility] [place] [facility] [address] [id number] [place] [address]- 6359 Mar, [facility] [place] [facility] [address] [id number] [address] 7966 Mar, [facility] [place] [facility] [address] [id number] [place] [address] Mar, [facility] [place] [facility] [address] [id number] [place] [address]- 8120 Mar, [facility] [place] [facility] [address] [facility] [id number] [place] [address]- 2312 Feb, [facility] [place] [facility] [address] [id number] [place] [address]- 4612 Feb, [facility] [place] [facility] [address] [id number] [place] [address]- 6232 Feb, [facility] [place] [facility] [address] [id number] [place] [address]- 0938 Feb, [facility] [place] [facility] [address] [id number] [place] [address]- 3515 Feb, [facility] [place] [facility] [address] [id number] [place] [address]- 3851 Feb, [facility] [place] [facility] [address] [id number] [place] [address]- 5783 Feb, [facility] [place] [facility] [address] [id number] [place] [address]- 8883 Jan, [facility] [place] [facility] [address] [id number] [address]- 7966 Jan, [facility] [place] [facility] [address] [id number] [address] 4769 Dec, [facility] [place] [facility] [address] [id number] [place] [address]- 6110 Dec, [facility] [place] [facility] [address] [id number] [place] [address]- 5765 Dec, [facility] [place] [facility] [address] [id number] [place] [address]- 9527 Dec, [facility] [place] [facility] [address] [id number] [place] [address]- 2323 04 Dec, 2013 [facility] [place] [facility] [address] [id number] [place] [address]- 2794 04 Dec, 2013 [facility] [place] [facility] [address] [id number] [place] [address]- 3405 Dec, [facility] [place] [facility] [address] [id number] [place] [address]- 3604 Dec, [facility] [place] [facility] [address] [id number] [place] [address]- 9660 Nov, [facility] [place] [facility] [address] [id number] [place] [address]- 1633 Nov, [facility] [place] [facility] [address] [id number] [place] [address]- 0365 Nov, [facility] [place] [facility] [address] [id number] [place] [address]- 9603 Nov, [facility] [place] [facility] [address] [id number] [place] [address]- 3383 Oct, [facility] [place] [facility] [address] [id number] [place] [address]- 9369 Oct, [facility] [place] [facility] [address] [id number] [place] [address]- 2783 Oct, [facility] [place] [facility] [address] [id number] [place] [address]- 7662 Oct, [facility] [place] [facility] [address] [id number] [place] [address]- 3459 Oct, [facility] [place] [facility] [address] [id number] [place] [address]- 5411 Oct, [facility] [place] [facility] [address] [id number] [place] [address]- 5574 Oct, [facility] [place] [facility] [address] [id number] [place] [address]- 4523 Oct, [facility] [place] [facility] [address] [id number] [place] [address]- 1470 Sep, [facility] [place] [facility] [address] [id number] [place] [address]- 1026 Sep, [facility] [place] [facility] [address] [id number] [place] [address]- 9187 August, [facility] [place] [facility] [address] [id number] [place] [address]- 2590 August, [facility] [place] [facility] [address] [id number] [place] [address]- 6616 Jul, [facility] [place] [facility] [address] [id number] [place] [address]- 3642 Jul, [facility] [place] [facility] [address] [id number] [place] [address]- 4738 Jul, [facility] [place] [facility] [address] [id number] [place] [address]- 3031 Jul, [facility] [place] [facility] [address] [id number] [place] [address]- 2073 Jul, [facility] [place] [facility] [address] [id number] [place] [address]- 6486 Jul, [facility] [place] [facility] [address] [id number] [place] [address]- 5418 Jul, [facility] [place] [facility] [address] [id number] [place] [address]- 4577 Jul, [facility] [place] [facility] [address] [id number] [place] [address]- 9706 Jun, [facility] [place] [facility] [address] [id number] [place] [address]- 6370 Jun, [facility] [place] [facility] [address] [id number] [place] [address]- 8174 Jun, [facility] [place] [facility] [address] [id number] [address]- 7081 Jun, [facility] [address] [id number] [place] [address]- 5305 18 May, 2013 [facility] [place] [facility] [address] [id number] [place] [address]- 2005 18 May, 2013 [facility] [address] [id number] [place] [address]- 4806 Apr, [facility] [place] [facility] [address] [id number] [place] [address]- 6935 Apr, [facility] [address] [id number] [place] [address]- 8183 Mar, [facility] [place] [facility] [address] [id number] [place] [address]- 1435 Mar, [facility] [address] [facility] [id number] [place] [address]- 6284 Mar, [facility] [place] [facility] [address] [id number] [place] [address]- 7357 Mar, [facility] [address] [id number] [place] [address]- 9978 Mar, [facility] [place] [facility] [address] [facility] [id number] [place] [address]- 2600 Mar, [facility] [place] [facility] [address] [id number] [place] [address]- 8485 Feb, [facility] [place] [facility] [address] [id number] [place] [address]- 1808 Feb, [facility] [place] [facility] [address] [id number] [place] [address]- 9144 Feb, [facility] [place] [facility] [address] [id number] [place] [address]- 3233 Feb, [facility] [place] [facility] [address] [facility] [id number] [place] [address]- 5670 Feb, [facility] [place] [facility] [address] [id number] [place] [address]- 4345 18 Feb, 2013 [facility] [place] [facility] [address] [id number] [place] [address]- 6542 Feb, [facility] [place] [facility] [address] [id number] [place] [address]- 8388 Feb, [facility] [place] [facility] [address] [id number] [place] [address]- 1266 15 Jan, 2013 [facility] [place] [facility] [address] [id number] [place] [address]- 0538 15 Jan, 2013 [facility] [place] [facility] [address] [id number] [place] [address]- 7708 14 Jan, 2013 [facility] [place] [facility] [address] [id number] [place] [address]- 4871 14 Jan, 2013 [facility] [place] [facility] [address] [id number] [place] [address]- 3146 18 Dec, 2012 [facility] [place] [facility] [address] [id number] [place] [address]- 5093 Dec, [facility] [place] [facility] [address] [id number] [place] [address]- 5527 2012 [facility] [place] [facility] [address] [id number] [place] [address]- 0370 Nov, [facility] [place] [facility] [address] [id number] [place] [address]- 3305 Nov, [facility] [place] [facility] [address] [id number] [place] [address]- 4479 16 Oct, 2012 [facility] [place] [facility] [address] [id number] [place] [address]- 8311 Oct, [facility] [place] [facility] [address] [id number] [place] [address]- 7667 Oct, [facility] [place] [facility] [address] [id number] [place] [address]- 6575 Sep, [facility] [address] [id number] [place] [address]- 2181 Sep, [facility] [place] [facility] [address] [id number] [place] [address]- 1394 Sep, [facility] [place] [facility] [address] [id number] [place] [address]- 6113 Sep, [facility] [place] [facility] [address] [id number] [place] [address]- 2334 Sep, [facility] [place] [facility] [address] [id number] [place] [address]- 3722 Sep, [facility] [place] [facility] [address] [id number] [place] [address]- 2655 August, [facility] [place] [facility] [address] [id number] [place] [address]- 0985 August, [facility] [place] [facility] [address] [id number] [place] [address]- 8097 August, [facility] [place] [facility] [address] [id number] [place] [address]- 0411 August, [facility] [place] [facility] [address] [id number] [place] [address]- 0659 August, [facility] [place] [facility] [address] [id number] [place] [address]- 1630 August, [facility] [place] [facility] [address] [id number] [place] [address]- 7457 August, [facility] [place] [facility] [address] [id number] [place] [address]- 8841 Jul, [facility] [place] [facility] [address] [id number] [place] [address]- 7978 Jul, [facility] [place] [facility] [address] [id number] [place] [address]- 4072 Jun, [facility] [place] [facility] [address] [id number] [place] [address]- 6691 Jun, [facility] [address] [id number] [place] [address]- 8476 May, [facility] [address] [id number] [place] [address]- 9206 May, [facility] [address] [id number] [place] [address]- 6809 Apr, [facility] [address] [id number] [place] [address]- 3090 Mar, [facility] [address] [id number] [place] [address]- 9117 Mar, [facility] [address] [id number] [place] [address]- 8518 Mar, [facility] [address] [id number] [place] [address]- 9057 Mar, [facility] [address] [id number] [place] [address]- 5574 Mar, [facility] [address] [id number] [place] [address]- 2084 Mar, [facility] [address] [facility] [id number] [place] [address]- 1924 Feb, [facility] [address] [id number] [place] [address] 254 Feb, [facility] [address] [id number] [place] [address] 2540 Feb, [facility] [place] [facility] [address] [id number] [place] [address]- 8221 Feb, [facility] [place] [facility] [address] [id number] [place] [address]- 7706 Feb, [facility] [address] [facility] [id number] [place] [address]- 4697 Feb, [facility] [place] [facility] [address] [id number] [place] [address]- 2216 Feb, [facility] [place] [facility] [address] [id number] [place] [address]- 0696 Feb, [facility] [place] [facility] [address] [id number] [place] [address]- 1179 Jan, [facility] [place] [facility] [address] [id number] [place] [address]- 5250 Jan, [facility] [place] [facility] [address] [id number] [place] [address]- 3310 Dec, [facility] [place] [facility] [address] [id number] [place] [address]- 9266 Dec, [facility] [place] [facility] [address] [facility] [id number] [place] [address]- 5863 Dec, [facility] [place] [facility] [address] [id number] [address]- 5973 Dec, [facility] [place] [facility] [address] [facility] [id number] [place] [address]- 7952 Dec, [facility] [place] [facility] [address] [facility] [id number] [address]- 8122 Nov, [facility] [place] [facility] [address] [facility] [id number] [place] [address]- 7217 Oct, [facility] [place] [facility] [address] [id number] [place] [address]- 4021 Oct, [facility] [place] [facility] [address] [facility] [id number] [place] [address]- 7200 Sep, [facility] [place] [facility] [address] [id number] [place] [address]- 4466 Sep, [facility] [place] [facility] [address] [facility] [id number] [place] [address]- 4300 Sep, [facility] [place] [facility] [address] [id number] [place] [address]- 2710 Sep, [facility] [address] [id number] [place] [address]- 7137 Sep, [facility] [place] [facility] [address] [id number] [place] [address]- 4650 Sep, [facility] [place] [facility] [address] [id number] [place] [address]- 9740 Sep, [facility] [place] [facility] [address] [id number] [place] [address]- 5265 Sep, [facility] [place] [facility] [address] [id number] [place] [address]- 4068 August, [facility] [place] [facility] [address] [id number] [place] [address]- 4150 August, [facility] [address] [facility] [id number] [place] [address]- 0686 August, [facility] [place] [facility] [address] [facility] [id number] [place] [address]- 0328 Jul, [facility] [place] [facility] [address] [id number] [place] [address]- 3367 Jul, [facility] [place] [facility] [address] [facility] [id number] [place] [address]- 4448 Jun, [facility] [place] [facility] [address] [id number] [place] [address]- 1440 Jun, [facility] [place] [facility] [address] [id number] [place] [address]- 7668 Jun, [facility] [place] [facility] [address] [id number] [place] [address]- 6025 Jun, [facility] [place] [facility] [address] [facility] [id number] [place] [address]- 8912 May, [facility] [place] [facility] [address] [facility] [id number] [place] [address]- 4761 May, [facility] [place] [facility] [address] [id number] [place] [address]- 2239 16 Apr, 2011 [facility] [place] [facility] [address] [id number] [place] [address]- 7042 Apr, [facility] [place] [facility] [address] [id number] [place] [address]- 6925 Apr, [facility] [place] [facility] [address] [id number] [place] [address]- 6594 Mar, [facility] [place] [facility] [address] [id number] [place] [address]687 Mar, [facility] [place] [facility] [address] [id number] [place] [address]- 8271 Mar, [facility] [place] [facility] [address] [id number] [place] [address]- 3368 Feb, [facility] [place] [facility] [address] [id number] [place] [address]- 8025 Feb, [facility] [place] [facility] [address] [id number] [place] [address]- 4941 Feb, [facility] [place] [facility] [address] [id number] [place] [address]- 1522 Feb, [facility] [place] [facility] [address] [id number] [place] [address]- 4233 Jan, [facility] [place] [facility] [address] [id number] [place] [address]- 2267 14 Jan, 2011 [facility] [place] [facility] [address] [id number] [place] [address]- 8007 Jan, [facility] [place] [facility] [address] [id number] [place] [address]- 0822 16 Dec, 2010 [facility] [place] [facility] [address] [id number] [place] [address]- 1810 Oct, [facility] [place] [facility] [address] [id number] [place] [address]- 6911 Mar, [facility] [id number] [address]- 6832 Feb, [facility] [id number] [address]- 5186 Feb, [facility] [id number] [address]- 8467 May, [facility] [id number] [address]- 1198 Apr, [facility] [id number] [address]- 6092 Mar, [facility] [id number] [address]- 6161 Jan, [facility] [id number] [address]- 1019 Oct, [facility] [id number] [address]- 0720 Jul, [facility] [id number] [address]- 6727 Mar, [facility] [id number] [address]- 9488 Feb, [facility] [address] [id number] [address]- 2500 Jan, IMMUNIZATIONS No Known Immunizations SOCIAL HISTORY Never Assessed REASON FOR VISIT [facility] PLAN OF CARE VITAL SIGNS MEDICATIONS [...]
[2018-08-27] MEDS ORDERED: D5 1/2 NS 1000 ML IV SOLUTION 1,000 ML IV SCH (15:00)
[2018-08-27] MEDS ORDERED: MAGNESIUM 1 GM/100 ML IVPB 100 ML IV ONE (15:00)
--- NOTE | 2018-08-27 16:08 | Consultation-Cardiology ---
HPI-Cardiology Cardiology Consultation: Date of Consultation 08/27/18 Date of Admission Attending Physician Addie Martinez DO Admitting Physician Bharat Aguilera MD Consulting Physician Alexandra NICOLE MD HPI: Time Seen by a Provider: 16:07 Chief Complaint: Shortness of breath This is a 62-year-old gentleman who presents via EMS after he was found on the floor for 5 hours. When I saw him in the ER he is having respiratory distress with the BiPAP. He briefly answers question in yes and no but is not able to speak complete sentences. I asked him whether he had any chest pain to which he responded no. He does have shortness of breath. Patient does have history of restrictive lung disease. He was found to have hypoglycemia and hypokalemia. Patient has history of diabetes, hypertension and hyperlipidemia. He had a nuclear stress test done in July [address] Becker which was negative. He had echocardiogram done in 2015 which showed normal LV function. Review of Systems-Cardiology Review of Systems Constitutional: As described under HPI; No As described under HPI, No no symptoms reported, No chills, No fever, No lightheadedness Eyes: No As described under HPI, No no symptoms reported, No blindness, No blurred vision, No contact lenses, No drainage, No decreased acuity, No foreign body sensation, No pain, No vision change Ears/Nose/Throat: No As described under HPI, No no symptoms reported, No chronic hearing loss, No ear discharge, No ear pain, No nasal drainage, No ulcerations Respiratory: No no symptoms reported; As described under HPI; No As described under HPI, No cough, No orthopnea; shortness of breath; No SOB with excertion Cardiovascular: No no symptoms reported; As described under HPI; No As described under HPI, No chest pain, No edema, No irregular heart rate, No lightheadedness, No palpitations Gastrointestinal: No no symptoms reported, No As described under HPI, No abdomen distended, No abdominal pain, No blood streaked bowels, No constipation , No diarrhea, No nausea, No vomiting, No stool coloration changes Genitourinary: No As described under HPI, No burning, No dysuria, No discharge , No frequency, No flank pain, No hematuria, No urgency Skin: No rash, No skin related problems, No ulcerations Psychiatric/Neurological: No anxiety, No depression, No seizure, No focal weakness, No syncope Hematologic: No bleeding abnormalities [id number] Hx Patient Social History Alcohol Use: Denies Use Recreational Drug Use: No Type Used: Cigars, Cigarettes 2nd Hand Smoke Exposure: No Recent Foreign Travel: No Recent Infectious Disease Expo: No Hospitalization with Isolation: Denies Immunizations Up To Date Tetanus Booster (TDap): Unknown Date of Pneumonia Vaccine: Apr 20, 2016 Date of Influenza Vaccine: Jan 18, 2018 Past Medical History PMH As described under Assessment. Allergies and Home Medications Allergies Coded Allergies: Sulfa (Sulfonamide Antibiotics) (Unverified Allergy, Unknown, 03/21/14) latex (Unverified Allergy, Unknown, 03/21/14) raspberry (Unverified Allergy, Unknown, 03/21/14) zinc oxide (Unverified Allergy, Unknown, 03/21/14) Uncoded Allergies: ARTIFICIAL SWEETNERS (Allergy, Unknown, 03/21/14) Home Medications Acetaminophen 500 Mg Tablet, 1,000 MG PO TID, (Reported) Aspirin 325 Mg Tablet.dr, 325 MG PO DAILY, (Reported) Atorvastatin Calcium 40 Mg Tablet, 40 MG PO HS, (Reported) B Complex with Vitamin C 1 Each Tablet, 1 EACH PO DAILY Prescribed by: HORACE CASAS on 07/05/181827 Budesonide/Formoterol Fumarate 10.2 Gm Hfa.aer.ad, 2 PUFF INH BID, (Reported) Diphenhydramine HCl 25 Mg Capsule, 25 MG PO HS Prescribed by: HORACE CASAS on 07/05/181832 Doxepin HCl 100 Mg Capsule, 200 MG PO HS, (Reported) Duloxetine HCl 60 Mg Capsule.dr, 60 MG PO DAILY, (Reported) Finasteride 5 Mg Tablet, 5 MG PO DAILY, (Reported) Furosemide 20 Mg Tablet, 20 MG PO TID, (Reported) Glipizide 10 Mg Tablet, 20 MG PO BID, (Reported) TAKES 2 (10MG) TABLETS Hydrochlorothiazide 25 Mg Tablet, 25 MG PO DAILY, (Reported) Insulin Glargine,Hum.rec.anlog 100 Unit/1 Ml Insuln.pen, 80 UNITS SC HS, ( Reported) Lidocaine 1 Each Adh..patch, 2-3 PATCH TOP DAILY, (Reported) Metoprolol Tartrate 100 Mg Tablet, 100 MG PO BID, (Reported) [place]-3S/Dha/Epa/Fish Oil/D3 1 Each Capsule, 1 CAP PO BID, (Reported) Polyethylene Glycol 3350 17 Gm Powd.pack, 17 GM PO DAILY Prescribed by: JOHN BUCIO on 10/05/17 1426 Pregabalin 200 Mg Capsule, 200 MG PO TID, (Reported) Tizanidine HCl 4 Mg Tablet, 6 MG PO TID PRN for BREAKTHROUGH PAIN, (Reported) Patient Home Medication List Home Medication List Reviewed: Yes Physical Exam-Cardiology Physical Exam Vital Signs/I&O 08/27/18 08/27/18 08/27/18 08/27/18 13:33 14:02 14:28 16:45 Temp 96.8 96.8 Pulse 113 116 109 101 Resp 22 31 34 24 B/P (MAP) 131/78 (95) Pulse Ox 95 93 93 98 O2 Delivery OxyMask NIV Bilevel O2 Flow Rate 30.00 30.00 30.00 Capillary Refill : Greater Than 3 Seconds Constitutional: appears stated age, apparent distress, well-developed, well- nourished HEENT: PERRL; No normal ENT inspection, No TMs normal, No pharynx normal, No scleral icterus (R), No scleral icterus (L), No pale conjunctivae (R), No pale conjunctivae (L), No photophobia, No TM abnormal (R), No TM abnormal (L), No pharyngeal erythema, No tonsillar exudate, No other, No discharge, No EOMI; hearing is well preserved; No hard of hearing; oral hygience is good; No ulceration, No xanthelasmas are seen Neck: No non-tender, No full range of motion, No supple, No normal inspection, No carotid bruit, No limited range of motion, No lymphadenopathy (R), No lymphadenopathy (L), No tender lateral, No tender midline, No thyromegaly, No other; carotid pulses are 2 + bilaterally; No with good upstrokes Respiratory: chest is bilaterally symmetric, rhonchi, other (decreased breath sounds bilaterally.) Cardiovascular: regular rate-rhythm, tachycardia, S1 and S2 Gastrointestinal: No tender, No soft, No round, No distended, No pulsatile mass , No organomegaly, No guarding, No rebound, No tenderness, No hernia, No mass, No audible bowel sounds, No abnormal bowel sounds, No abdominal bruits, No spleenomegaly, No other Rectal: deferred Extremities: No normal range of motion, No non-tender, No normal inspection, No pedal edema, No calf tenderness, No normal capillary refill, No pelvis stable , No calf tenderness, No inflammation, No pedal edema, No slow capillary refill , No swelling, No other, No abrasion, No clubbing, No cyanosis, No ecchymosis, No laceration, No no lower extremity edema bilateral, No significant edema, No tenderness, No wound Neurologic/Psychiatric: no motor/sensory deficits, alert, normal mood/affect, oriented x 3, power is 5/5 both on sides Skin: No normal color, No warm/dry, No cyanosis, No cool, No diaphoresis, No damp, No ecchymosis, No jaundice, No mottled, No pallor, No rash, No tattoos/ piercings, No ulcerations, No rash on exposed areas, No ulcerations on exposed areas, No other Data Review Labs Laboratory Tests 08/27/18 13:41: Glucometer 60*L 08/27/18 13:45: White Blood Count 14.4H, Red Blood Count 5.35, Hemoglobin 14.7, Hematocrit 46, Mean Corpuscular Volume 86, Mean Corpuscular Hemoglobin 28, Mean Corpuscular Hemoglobin Concent 32, Red Cell Distribution Width 18.6H, Platelet Count 145, Mean Platelet Volume 10.7H, Neutrophils (%) (Auto) 90H, Lymphocytes (%) (Auto) 4L, Monocytes (%) (Auto) 6, Eosinophils (%) (Auto) 0, Basophils (%) (Auto) 0, Neutrophils # (Auto) 12.9H, Lymphocytes # (Auto) 0.5L, Monocytes # (Auto) 0.8, Eosinophils # (Auto) 0.1, Basophils # (Auto) 0.0, Neutrophils % (Manual) 75, Lymphocytes % (Manual) 8, Monocytes % (Manual) 4, Eosinophils % (Manual) 1, Basophils % (Manual) 0, Band Neutrophils 12, Anisocytosis SLIGHT, Prothrombin Time 17.1H, INR Comment 1.3, Activated Partial Thromboplast Time 31, Urine Color YELLOW, Urine Clarity CLEAR, Urine pH 8, Urine Specific [place] 1.015L, Urine Protein 2+H, Urine Glucose (UA) NEGATIVE, Urine Ketones NEGATIVE, Urine Nitrite NEGATIVE, Urine Bilirubin NEGATIVE, Urine Urobilinogen 4H, Urine Leukocyte Esterase NEGATIVE, Urine RBC (Auto) NEGATIVE, Urine RBC RARE, Urine WBC RARE, Urine Squamous Epithelial Cells 0-2, Urine Crystals NONE, Urine Bacteria NEGATIVE, Urine Casts NONE, Urine Mucus NEGATIVE, Urine Culture Indicated NO, Blood Gas Puncture Site UNK, Blood Gas Patient Temperature 96.8, Arterial Blood pH 7.45H, Arterial Blood Partial Pressure CO2 51H, Arterial Blood Partial Pressure O2 129H, Arterial Blood HCO3 35H, Arterial Blood Total CO2 37.0H, Arterial Blood Oxygen Saturation 97, Arterial Blood Base Excess 10.6H , Vitaly Test UNK, Blood Gas Ventilator Setting NA, Blood Gas Inspired Oxygen UNK , Sodium Level 142, Potassium Level 2.9L, Chloride Level 96L, Carbon Dioxide Level 31, Anion Gap 15H, Blood Urea Nitrogen 20H, Creatinine 1.16, Estimat Glomerular Filtration Rate > 60, BUN/Creatinine Ratio 17, Glucose Level 57*L, Lactic Acid Level 2.37*H, Calcium Level 10.7H, Corrected Calcium 10.4H, Magnesium Level 1.7L, Total Bilirubin 1.8H, Aspartate Amino Transf (AST/SGOT) 25 , Alanine Aminotransferase (ALT/SGPT) 17, Alkaline Phosphatase 120, Total Creatine Kinase 130, Troponin I < 0.028, B-Type Natriuretic Peptide 137.7H, Total Protein 7.7, Albumin 4.4 08/27/18 14:12: Glucometer 96 08/27/18 14:35: Glucometer 71 08/27/18 16:38: ECG Impression ECG Initial ECG Rhythm: S.Tach Initial ECG Impression: Nonspecific Changes A/P-Cardiology Assessment/Admission Diagnosis Acute respiratory failure, Mild elevation of BNP, Hypoglycemia, Hypokalemia, Hypomagnesemia, Lactic acidosis with leukocytosis, History of LVH with diastolic dysfunction. Plan Acute respiratory failure, on BiPAP Mild elevation of BNP, will recommend an echocardiogram. Hypoglycemia, D50 Hypokalemia, potassium supplementation. Hypomagnesemia, magnesium supplementation. Lactic acidosis with leukocytosis, sepsis needs to be ruled out. History of LVH with diastolic dysfunction. Repeat echocardiogram. Obstructive sleep apnea, Chronic edema, chronic venous stasis changes, workup in the past showed normal left ventricular systolic function with ejection fraction 70 percent on the MPI by Dr. Becker in July 2017. Last echo was done in 2015. Cardiac catheterization done in 2009 and reported to have normal coronaries Morbid obesity. Generalized weakness and loss of energy. Thank you for your consultation. Please call me if you have any questions. Juancarlos Nicole MD, FACP, FACC, FSCAI, FHRS, CCDS Interventional Cardiology Cardiac Electrophysiology Vascular Medicine and Endovascular Interventions Alexandra NICOLE MD August 27, 2018 4:08 pm
[2018-08-27] MEDS ORDERED: ONDANSETRON 4 MG/2 ML (SDV) Z0FRAN IV PRN (17:30)
[2018-08-27] MEDS: AZITHROMYCIN 500 MG/NS 250 ML IVPB IV SCH ×2 (18:01)
[2018-08-27] MEDS ORDERED: ACETAMINOPHEN 325 MG TABLET ONE (19:26)
[2018-08-27] MEDS: ACETAMINOPHEN 325 MG TABLET PO PRN (19:33)
[2018-08-27] MEDS: D5 1/2 NS W/KCL 10 MEQ/L 1,000 ML IV SCH (19:42)
[2018-08-27] MEDS ORDERED: fentaNYL INJECTION 100 MCG/2 ML AMP IV NR (20:00)
[2018-08-27] MEDS ORDERED: HYDROmorphone 2 MG/ML VIAL (DILAUDID) IV PRN (20:00)
[2018-08-27] MEDS ORDERED: RT-ALBUTEROL/IPRATROPIUM 3 ML (DUONEB) VIAL INH PRN (20:30)
[2018-08-27] MEDS: PREGABALIN 100 MG (LYRICA) CAPSULE PO SCH (20:31)
[2018-08-27] MEDS: RT-ALBUTEROL/IPRATROPIUM 3 ML (DUONEB) VIAL INH SCH (20:32)
[2018-08-27] MEDS: CEFEPIME 2,000 MG/SWFI 20 ML IV PUSH IV SCH ×2 (22:10)
[2018-08-28] VITALS (26 sets, daily range): BP systolic 121–200; BP diastolic 64–121
[2018-08-28] MEDS: ACETAMINOPHEN 325 MG TABLET PO PRN ×3 (00:56→17:30)
[2018-08-28] MEDS: fentaNYL INJECTION 100 MCG/2 ML AMP IV PRN ×2 (00:56→06:32)
[2018-08-28] MEDS: RT-ALBUTEROL/IPRATROPIUM 3 ML (DUONEB) VIAL INH SCH ×5 (03:25→20:04)
[2018-08-28 03:32] LABS: BASOPHILS % (AUTO) 0 % (0-10); EOSINOPHILS % (AUTO) 0 % (0-10); HEMATOCRIT 42 % (40-54); LYMPHOCYTES # (AUTO) 0.4 X 10^3 (1.0-4.0); LYMPHOCYTES % (AUTO) 3 % (12-44); MEAN CORPUSCULAR HEMOGLOBIN 27 PG (25-34); MEAN CORPUSCULAR HGB CONC 31 G/DL (32-36); MEAN CORPUSCULAR VOLUME 86 FL (80-99); MONOCYTES # (AUTO) 0.6 X 10^3 (0.0-1.0); MONOCYTES % (AUTO) 4 % (0-12); NEUTROPHILS # (AUTO) 13.1 X 10^3 (1.8-7.8); NEUTROPHILS % (AUTO) 93 % (42-75); PLATELET COUNT 145 10^3/uL (130-400); RED CELL DISTRIBUTION WIDTH 18.6 % (10.0-14.5); WHITE BLOOD COUNT 14.2 10^3/uL (4.3-11.0)
[2018-08-28 03:41] LABS: BUN/CREATININE RATIO 21; CALCIUM 9.3 MG/DL (8.5-10.1); CARBON DIOXIDE 28 MMOL/L (21-32); CHLORIDE 98 MMOL/L (98-107); CREATININE SERUM 0.94 MG/DL (0.60-1.30); GFR ESTIMATED > 60; GLUCOSE 79 MG/DL (70-105); MAGNESIUM 1.7 MG/DL (1.8-2.4); PHOSPHORUS 3.5 MG/DL (2.3-4.7); POTASSIUM 3.2 MMOL/L (3.6-5.0); SODIUM 140 MMOL/L (135-145)
[2018-08-28] MEDS: inSUlin ASPART (NovoLOG) 1 UNIT/0.01 ML (CHARGE PER UNIT) SC SCH ×4 (03:54→21:38)
[2018-08-28] MEDS: D5 1/2 NS W/KCL 10 MEQ/L 1,000 ML IV SCH ×3 (05:11→23:38)
[2018-08-28] MEDS: MAGNESIUM 1 GM/100 ML IVPB 100 ML IV SCH ×2 (05:42→06:24)
[2018-08-28] MEDS: POTASSIUM CL 10MEQ/50ML IVPB 50 ML IV SCH ×4 (05:42→08:33)
[2018-08-28] MEDS ORDERED: MAGNESIUM 1 GM/100 ML IVPB 100 ML IV SCH (06:00)
[2018-08-28] MEDS ORDERED: POTASSIUM CL 10MEQ/50ML IVPB 50 ML IV SCH (06:00)
[2018-08-28] MEDS ORDERED: KCL 20 MEQ TAB (K-DUR) PO SCH (06:00)
--- NOTE | 2018-08-28 07:24 | Pulmonary Consultation ---
History of Present Illness History of Present Illness Date of Consultation 08/28/18 07:19 Time Seen by Provider: 07:19 Date of Admission History of Present Illness 62yo with hx of DM, HTN presented to ED via EMS after being found on floor after 5hours. Pt was in respiratory distress in the ED and was placed on BiPAP. He was also found to have hypoglycemia and hypokalemia. pt is on BiPAP. difficult to obtain ROS. Allergies and Home Medications Allergies Coded Allergies: Sulfa (Sulfonamide Antibiotics) (Unverified Allergy, Unknown, 03/21/14) latex (Unverified Allergy, Unknown, 03/21/14) raspberry (Unverified Allergy, Unknown, 03/21/14) zinc oxide (Unverified Allergy, Unknown, 03/21/14) Uncoded Allergies: ARTIFICIAL SWEETNERS (Allergy, Unknown, 03/21/14) Home Medications Acetaminophen 500 Mg Tablet, 1,000 MG PO TID, (Reported) TAKES 2 (500MG) TABLETS Aspirin 325 Mg Tablet.dr, 325 MG PO DAILY, (Reported) Atorvastatin Calcium 40 Mg Tablet, 40 MG PO HS, (Reported) B Complex with Vitamin C 1 Each Tablet, 1 TAB PO DAILY, (Reported) Budesonide/Formoterol Fumarate 10.2 Gm Hfa.aer.ad, 2 PUFF INH BID, (Reported) Diphenhydramine HCl 25 Mg Capsule, 25 MG PO HS, (Reported) Doxepin HCl 100 Mg Capsule, 200 MG PO HS, (Reported) TAKES 2 (100MG) CAPSULES Duloxetine HCl 60 Mg Capsule.dr, 60 MG PO DAILY, (Reported) Finasteride 5 Mg Tablet, 5 MG PO DAILY, (Reported) Furosemide 20 Mg Tablet, 40 MG PO DAILY, (Reported) TAKES 2 (20MG) TABLETS Furosemide 20 Mg Tablet, 20 MG PO 1800, (Reported) Glipizide 10 Mg Tablet, 20 MG PO BID, (Reported) TAKES 2 (10MG) TABLETS Hydrochlorothiazide 25 Mg Tablet, 25 MG PO DAILY, (Reported) Insulin Glargine,Hum.rec.anlog 100 Unit/1 Ml Insuln.pen, 80 UNITS SC HS, ( Reported) Lidocaine 1 Each Adh..patch, 2-3 PATCH TOP DAILY PRN for PAIN-MODERATE, ( Reported) Metoprolol Tartrate 100 Mg Tablet, 100 MG PO BID, (Reported) [place]-3S/Dha/Epa/Fish Oil/D3 1 Each Capsule, 1 CAP PO BID, (Reported) Polyethylene Glycol 3350 17 Gm Powd.pack, 17 GM PO MoWeFr, (Reported) Pregabalin 200 Mg Capsule, 200 MG PO TID, (Reported) Tizanidine HCl 4 Mg Tablet, 6 MG PO TID, (Reported) TAKES 1 & 1/2 (4MG) TABLET Past Glruzzf-Fifktd-Lajhzj Hx Patient Social History Alcohol Use: Denies Use Recreational Drug Use: No Type Used: Cigars, Cigarettes 2nd Hand Smoke Exposure: No Recent Foreign Travel: No Contact w/Someone Who Travel: No Recent Infectious Disease Expo: No Recent Hopitalizations: No Physical Abuse: No Sexual Abuse: No Immunizations Up To Date Tetanus Booster (TDap): Unknown Date of Pneumonia Vaccine: Apr 20, 2016 Date of Influenza Vaccine: Jan 18, 2018 Seasonal Allergies Seasonal Allergies: No Past Medical History Surgeries: No Respiratory: Yes Sleep Apnea, COPD Currently Using CPAP: Yes Cardiac: Yes High Cholesterol, Hypertension Neurological: Yes Neuropathy Genitourinary: No Gastrointestinal: No Musculoskeletal: Yes (CHRONIC GENERALIZED PAIN ) Arthritis, Fibromyalgia Endocrine: Yes (MORBID OBESITY) Diabetes, Insulin dep HEENT: No Cancer: No Psychosocial: No Integumentary: Yes (CHRONIC LEG WOUNDS) Blood Disorders: No Family Medical History Heart Disease, Cancer, CAD Over 55 Years Old, Diabetes, Hypertension, Stroke, Vascular Disease Review of Systems Time Seen by Provider: 06:35 Constitutional: Sweats, Weakness, Malaise Eyes: No: Pain, Vision change, Conjunctivae inflammation, Eyelid inflammation, Other, Redness ENT: Nose discharge, Nose congestion Respiratory: Cough, Shortness of breath, SOB with excertion, Wheezing Cardiovascular: Paroxysmal Noc. Dyspnea Gastrointestinal: Constipation Genitourinary: No Dysuria, No Frequency, No Incontinence, No Hematuria, No Retention, No Other Neurological: Weakness, Confusion Sepsis Event Evaluation Height, Weight, BMI Height: 5'10.00" Weight: 400lbs. 0.0oz. 181.484392om; 56.3 BMI Method:Stated Exam Exam Vital Signs Date Time Temp Pulse Resp B/P (MAP) Pulse Ox O2 Delivery O2 Flow Rate FiO2 08/28/18 07:00 99 Nasal Cannula 3.50 08/28/18 07:00 109 5/11/19 06:23 Nasal Cannula 3.00 08/28/18 06:21 100.6 08/28/18 06:00 96 22 134/86 (102) 98 NIV Bilevel 30.00 08/28/18 05:00 96 19 132/85 (101) 98 NIV Bilevel 30.00 08/28/18 04:00 99 19 144/78 (100) 95 NIV Bilevel 30.00 08/28/18 03:30 96 NIV Bilevel 30 08/28/18 03:30 100.8 NIV Bilevel 30.00 08/28/18 03:26 NIV Bilevel 30.00 08/28/18 03:26 98 18 94 30.00 08/28/18 03:00 101 16 125/79 (94) 94 Nasal Cannula 3.00 08/28/18 02:00 105 30 155/93 (113) 95 Nasal Cannula 3.00 08/28/18 01:00 98 08/28/18 01:00 106 22 138/92 (107) 99 Nasal Cannula 3.00 08/28/18 00:59 Nasal Cannula 3.00 08/28/18 00:56 101.0 08/28/18 00:54 101.0 08/28/18 00:47 93 19 98 30.00 08/28/18 00:00 96 29 129/77 (94) 97 NIV Bilevel 30.00 08/27/18 23:15 94 NIV Bilevel 30 08/27/18 23:00 100.1 94 25 140/89 (106) 94 NIV Bilevel 30.00 08/27/18 22:49 96 19 93 30.00 08/27/18 22:00 100 22 138/96 (110) 94 NIV Bilevel 30.00 08/27/18 21:00 107 28 122/81 (95) 94 NIV Bilevel 30.00 08/27/18 20:52 100.7 08/27/18 20:33 NIV Bilevel 30.00 08/27/18 20:32 108 19 95 30.00 08/27/18 20:08 102.7 08/27/18 20:05 102.7 08/27/18 20:00 105 18 155/98 (117) 94 Nasal Cannula 3.00 08/27/18 20:00 94 Nasal Cannula 3.00 08/27/18 19:48 94 Nasal Cannula 3.00 08/27/18 19:48 105 94 08/27/18 19:33 102.6 08/27/18 19:20 102.6 106 15 137/97 (110) 95 Nasal Cannula 3.00 08/27/18 19:00 105 08/27/18 19:00 105 12 151/97 (115) 94 Nasal Cannula 3.00 08/27/18 18:00 101 8 139/87 (104) 97 Nasal Cannula 3.00 08/27/18 17:50 103 08/27/18 17:15 107 16 148/88 (108) 97 NIV Bilevel 30.00 08/27/18 17:10 102.3 08/27/18 16:45 NIV Bilevel 30 08/27/18 16:45 96.8 101 24 131/78 (95) 98 NIV Bilevel 30.00 08/27/18 14:28 109 34 93 30.00 08/27/18 14:02 116 31 93 30.00 08/27/18 13:33 96.8 113 22 95 OxyMask I & O 08/28/18 07:00 Intake Total 3225 ml Output Total 1515 ml Balance 1710 ml Height & Weight Height: 5'10.00" Weight: 400lbs. 0.0oz. 181.043244sn; 56.3 BMI Method:Stated General Appearance: Anxious, Moderate Distress, Obese HEENT: PERRL/EOMI, Normal ENT Inspection, Pharynx Normal Neck: Full Range of Motion, Non Tender, Supple Respiratory: Accessory Muscle Use, Crackles, Decreased Breath Sounds, Respiratory Distress Cardiovascular: No Edema, No Gallop, Tachycardia Capillary Refill: Less Than 3 Seconds Peripheral Pulses: 2+ Radial Pulses (R), 2+ Radial Pulses (L) Gastrointestinal: normal bowel sounds, non tender, soft Extremity: Normal Capillary Refill, Normal Inspection Neurologic/Psychiatric: Alert Skin: Normal Color, Warm/Dry Lymphatic: No Adenopathy Results Lab Laboratory Tests 08/27/18 13:45 08/28/18 03:10 Assessment/Plan Assessment/Plan Acute on chronic respiratory failure with OHS -easy pap with duoneb -BiPAP qhs AND prn Severe sepsis probably secondary to pneumonia -IVF -abx -martinez cultures Hypoglycemia -monitor Hypokalemia, Hypomagnesemia, -replace and monitor Lactic acidosis -IVF History of LVH with diastolic dysfunction. TAMIKA HILARIO DO August 28, 2018 07:24
--- NOTE | 2018-08-28 07:34 | Diagnostic Imaging Report ---
EXAM: Portable erect AP chest at 3:42 a.m. INDICATION: Pneumonia FINDINGS: The cardiomegaly noted on the prior exam of 08/27/2018 is again evident and not significantly changed. The right lower lobe atelectasis/infiltrate and fluid seen previously is also no different. However, there is now a vague area of slightly increased density in the right perihilar region. This may be related to mild pneumonia/atelectasis. The central pulmonary vascularity does not seem as striking as on the prior exam. The mediastinum is widened but no different than on the previous study. The osseous structures are intact. IMPRESSION: 1. There are mixed results. There does appear to be less pulmonary congestion but there may be a new area of pneumonia/atelectasis developing in the right perihilar region. 2. A followup study would be recommend for continued evaluation. Dictated by: Dictated on workstation # [id number]
[2018-08-28] MEDS: morphine INJ 4 MG/ML 1 ML (VIAL/SYRINGE) IVP PRN ×4 (08:14→22:45)
[2018-08-28] MEDS: PREGABALIN 100 MG (LYRICA) CAPSULE PO SCH ×3 (08:38→19:45)
[2018-08-28] MEDS: CEFEPIME 2,000 MG/SWFI 20 ML IV PUSH IV SCH ×4 (10:28→21:52)
--- NOTE | 2018-08-28 10:30 | Physical Therapy Evaluation ---
PT Evaluation-General Medical Diagnosis Admission Date August 27, 2018 at 15:45 Medical Diagnosis: Fall Onset Date: August 27, 2018 Therapy Diagnosis Therapy Diagnosis: limited mobility Height/Weight Height (Feet): 5 Height (Inches): 10.00 Weight (Pounds): 400 Weight (Ounces): 0.0 Precautions Precautions/Isolations: Fall Prevention, Standard Precautions Weight Bear Status Full Weight Bearing Full Weight Bearing Referral Reason for Referral: Evaluation/Treatment Medical History Pertinent Medical History: COPD, DM, HTN Social History Home: Single Level Current Living Status: Other Family Entry Into Home: Level Entry Prior/Core FIM Prior Level of Function Therapy Code Descriptions/Definitions Functional [place] Measure: 0=Not Assessed/NA 4=Minimal Assistance 1=Total Assistance 5=Supervision or Setup 2=Maximal Assistance 6=Modified [place] 3=Moderate Assistance 7=Complete [place] Therapy Quality Codes: 6 Independent with activity with or without an assistive device 5 Patient requires set up or clean up by helper. Patient completes activity by themselves 4 Supervision or touching assist (CGA). Addis provide cues , steadying assist 3 The helper provides less than half the effort to complete the activity 2 The helper provides more than half the effort to complete the activity 1 Dependent. The helper does all the effort to complete an activity 7 Patient refused to complete or attempt activity 9 The patient did not perform the activity before the current illness or injury 88 Not attempted due to Medical conditions or safety concerns Functional Abilities and Goals: Independent: Patient completed the activities by him/herself, with or without an assistive device, with no assistance from a helper. Needed Some Help: Patient needed partial assistance from another person to complete activities. Dependent: A helper completed the activities for the patient. Unknown: Not Applicable: Bed Mobility: 4 Transfers (B,C,W/C) (FIM): 4 Gait: 1 Stairs: 1 Indoor Mobility (Ambulation): Needed Some Help Stairs: Not Applicalbe Prior Device Use: (B) canes Limited in home mobility. PT Evaluation-Current Subjective Pt reports that his mobility and strength have gone down significantly over the past 2 weeks. He is currently reporting (B) LE weakness and (B) lower leg/foot neuropathy. Pt/Family Goals return home Objective Patient Orientation: Person, Place, Time, Situation Problem Solving: Good Attachments: Oxygen, IV ROM/Strength ROM Upper Extremities WFL ROM Lower Extremities Limited (B) knee ROM due to edema. Strength Upper Extremities Poor upper body strength, 3+/5 Strength Lower Extremities (B) LE gross MMT 3/5. Pt is not able to perform supine leg lifts due to his large abdomen lying on his legs. Neuromuscular (Tone, Coordination, Reflexes) Patellar tendon and achilles reflexes are intact (B) Sensory Vision: Functional Hearing: Functional Sensation Right Upper Extremit: Impaired Sensation Left Upper Extremity: Impaired Sensation Up. Extremities (B) has neuropathy affecting the palm and fingers Sensation Right Lower Extremit: Impaired Sensation Left Lower Extremity: Impaired Sensation Lower Extremities Pt has (B) neuropathy with (R) lower leg sensation absent beginning at 10cm distal to the knee joint line. (L) lower leg sensation stops 12cm distal to the knee joint line. Transfers Therapy Code Descriptions/Definitions Functional [place] Measure: 0=Not Assessed/NA 4=Minimal Assistance 1=Total Assistance 5=Supervision or Setup 2=Maximal Assistance 6=Modified [place] 3=Moderate Assistance 7=Complete [place] Transfers (B, C, W/C) (FIM): 1 Scootin Pt has been sitting upright in bed with assist from nursing. He requires total assist at this time. Gait Mode of Locomotion: Walk Anticipated Mode of Locomotion: Walk Distance (FIM): 0=does not occure Gait Assistive Device: FWW Assessment/Needs Pt requested to remain lying down as he had just returned from sitting up. He is severely weakened in (B) legs. Rehab Potential: Fair PT Short Term Goals Short Term Goals Time Frame: September 11, 2018 Transfers (B,C,W/C) (FIM): 4 Gait (FIM): 1 Distance (FIM): 6=992-86 ft Gait Distance Comment: 50ft Gait Level of Assist: 2 Gait Assistive Device: FWW PT Plan Problem List Problem List: Activity Tolerance, Functional Strength, Gait, Transfer, Bed Mobility Treatment/Plan Treatment Plan: Continue Plan of Care Treatment Plan: Bed Mobility, Functional Activity Ghulam, Functional Strength, Gait, Safety, Therapeutic Exercise, Transfers Treatment Duration: September 11, 2018 Frequency: 5 times per week Estimated Hrs Per Day: .25 hour per day Patient and/or Family Agrees t: Yes Time/GCodes Time In: 1005 Time Out: 1025 Total Billed Treatment Time: 20 Total Billed Treatment 1, evmodc 20 SALVATORE RASMUSSEN PT August 28, 2018 10:30
--- NOTE | 2018-08-28 10:55 | History & Physical-Hospitalist ---
History of Present Illness HPI/Chief Complaint CC: SOB HPI: This is a 62-year-old white male very debilitated individual of [facility] who has severe morbid obesity with severe obstructive sleep apnea on BiPAP who presented to the ER with shortness of breath found to have exacerbation of COPD possible early pneumonia and had sustained a fall and found down 4 hours later with only slight rhabdomyolysis. Patient was maintained on BiPAP through the night with Dr. Perez consultation. Patient currently reports his fibromyalgia has activated and causing a lot of pain everywhere in addition to chronic back pain. His BMI is 57. Overall very complex medical problems which are further complicated with severe morbid obesity. Patient reports he is less short of breath and feels like the nebulizer treatments are helping a great deal. Source: patient Exam Limitations: no limitations Date Seen 08/28/18 Time Seen by a Provider: 11:00 Attending Physician Addie Martinez David F MD Referring Physician Date of Admission August 27, 2018 at 15:45 Home Medications & Allergies Home Medications Reviewed patient Home Medication Reconciliation performed by pharmacy medication reconciliations telegraph repeater technician and/or nursing. Patients Allergies have been reviewed. Allergies Allergies Coded Allergies Sulfa (Sulfonamide Antibiotics) (Unverified Allergy, Unknown, 03/21/14) latex (Unverified Allergy, Unknown, 03/21/14) raspberry (Unverified Allergy, Unknown, 03/21/14) zinc oxide (Unverified Allergy, Unknown, 03/21/14) Uncoded Allergies ARTIFICIAL SWEETNERS ( Allergy, Unknown, 03/21/14) Past Abqqugu-[id number]-[id number] Hx Past Med/Social Hx: Reviewed Nursing Past Med/Soc Hx, Reviewed and Corrections made Patient Social History Marrital Status: single Employed/Student: unemployed Alcohol Use: Denies Use Recreational Drug Use: No Smoking Status: Former Smoker Type Used: Cigars, Cigarettes 2nd Hand Smoke Exposure: No Recent Foreign Travel: No Contact w/other who traveled: No Recent Hopitalizations: No Recent Infectious Disease Expo: No Immunizations Up To Date Tetanus Booster (TDap): Unknown Date of Pneumonia Vaccine: Apr 20, 2016 Date of Influenza Vaccine: Jan 18, 2018 Seasonal Allergies Seasonal Allergies: No Past Medical History Respiratory: Sleep Apnea Currently Using CPAP: No Currently Using BIPAP: Yes Cardiac: High Cholesterol, Hypertension Neurological: Neuropathy Musculoskeletal: Arthritis, Fibromyalgia Endocrine: Diabetes, Insulin dep History of Blood Disorders: No Family History Heart Disease, Cancer, CAD Over 55 Years Old, Diabetes, Hypertension, Stroke, Vascular Disease Review of Systems Constitutional: see HPI, weakness EENTM: no symptoms reported Respiratory: dyspnea on exertion, short of breath Cardiovascular: no symptoms reported Gastrointestinal: no symptoms reported Genitourinary: no symptoms reported Musculoskeletal: no symptoms reported Skin: no symptoms reported Psychiatric/Neurological: No Symptoms Reported All Other Systems Reviewed Negative Unless Noted: Yes Physical Exam Physical Exam Vital Signs Vital Signs - First Documented 08/27/18 08/27/18 08/27/18 13:33 14:02 16:45 Temp 96.8 Pulse 113 Resp 22 B/P (MAP) 131/78 (95) Pulse Ox 95 O2 Delivery OxyMask O2 Flow Rate 30.00 FiO2 30 Capillary Refill : Less Than 3 Seconds Height, Weight, BMI Height: 5'10.00" Weight: 400lbs. 0.0oz. 181.049014lj; 56.3 BMI Method:Stated General Appearance: WD/WN, Chronically ill, Mild Distress, Obese Eyes: Right Eye Normal Inspection, Right Eye PERRL HEENT: PERRL/EOMI, Normal ENT Inspection, Pharynx Normal, Moist Mucous Membranes Neck: Full Range of Motion, Normal Inspection, Non Tender Respiratory: Chest Non Tender, Lungs Clear, No Accessory Muscle Use, No Respiratory Distress, Crackles, Decreased Breath Sounds Cardiovascular: Regular Rate, Rhythm, No Edema, No Gallop, No JVD, No Murmur, Normal Peripheral Pulses Gastrointestinal: Normal Bowel Sounds, No Organomegaly, No Pulsatile Mass, Non Tender, Soft Back: Normal Inspection, No CVA Tenderness, No Vertebral Tenderness Extremity: Normal Capillary Refill, Normal Inspection, Normal Range of Motion, Non Tender, No Calf Tenderness, No Pedal Edema Neurologic/Psychiatric: Alert, Oriented x3, No Motor/Sensory Deficits, Normal Mood/Affect Skin: Normal Color, Warm/Dry Lymphatic: No Adenopathy Results Results/Procedures Labs Laboratory Tests 08/27/18 13:45 08/28/18 03:10 Patient resulted labs reviewed. Assessment/Plan Admission Diagnosis Assessment: Acute on chronic respiratory failure requiring BiPAP COPD exacerbation Fibromyalgia Morbid obesity Severe obstructive sleep apnea Chronic pain Plan: Pain medication Supportive care BiPAP Dr. Perez is appreciated Admission Status: Inpatient Order (span 2 midnights) Reason for Inpatient Admission: Resp failure will require 3 days inpatient Diagnosis/Problems Diagnosis/Problems (1) Respiratory failure with hypoxia and hypercapnia Status: Acute Qualifiers: Chronicity: acute on chronic Qualified Codes: J96.21 - Acute and chronic respiratory failure with hypoxia; J96.22 - Acute and chronic respiratory failure with hypercapnia (2) COPD with acute exacerbation Status: Acute (3) Pneumonia Status: Acute Qualifiers: Pneumonia type: due to unspecified organism Laterality: unspecified laterality Lung location: unspecified part of lung Qualified Codes: J18.9 - Pneumonia, unspecified organism (4) Hypoglycemia Status: Acute (5) Morbid obesity with BMI of 50.0-59.9, adult Status: Chronic (6) Obstructive sleep apnea Status: Chronic (7) Multiple falls Status: Chronic (8) Fibromyalgia Status: Chronic (9) Neuropathy Status: Chronic Clinical Quality Measures DVT/VTE Risk/Contraindication: Risk Factor Score Per Nursin RFS Level Per Nursing on Admit: 4+=Very High ADDIE MARTINEZ DO August 28, 2018 10:55
[2018-08-28 11:01] LABS: ABG OXYGEN SATURATION 95 % (94-100); ABG PCO2 49 MMHG (35-45); ABG PH 7.45 (7.37-7.43); ABG PO2 81 MMHG (79-93); ABG TCO2 34.9 MMOL/L (21.0-31.0); ALLENS TEST YES-POS; INSPIRED O2 3
[2018-08-28 11:02] LABS: PATIENT TEMP 98.4; VENTILATOR NO
[2018-08-28] MEDS: KETOROLAC 30 MG/ML VIAL IVP PRN ×2 (11:29→19:39)
--- NOTE | 2018-08-28 13:15 | Cardiology Progress Note ---
Cardiology SOAP Progress Note Subjective: Improved shortness of breath. No chest pain. Objective: I&O/Vital Signs 08/28/18 08/28/18 08/28/18 08/28/18 02:00 03:00 03:26 03:26 Pulse 105 101 98 Resp 30 16 18 B/P (MAP) 155/93 (113) 125/79 (94) Pulse Ox 95 94 94 O2 Delivery Nasal Cannula Nasal Cannula NIV Bilevel O2 Flow Rate 3.00 3.00 30.00 30.00 08/28/18 08/28/18 08/28/18 08/28/18 03:30 03:30 04:00 05:00 Temp 100.8 Pulse 99 96 Resp 19 19 B/P (MAP) 144/78 (100) 132/85 (101) Pulse Ox 96 95 98 O2 Delivery NIV Bilevel NIV Bilevel NIV Bilevel NIV Bilevel O2 Flow Rate 30.00 30.00 30.00 FiO2 30 08/28/18 08/28/18 08/28/18 08/28/18 06:00 06:21 06:23 07:00 Temp 100.6 Pulse 96 109 Resp 22 B/P (MAP) 134/86 (102) Pulse Ox 98 O2 Delivery NIV Bilevel Nasal Cannula O2 Flow Rate 30.00 3.00 08/28/18 08/28/18 08/28/18 08/28/18 07:00 07:00 08:00 08:00 Pulse 108 99 Resp 22 16 B/P (MAP) 124/96 (105) 138/89 (105) Pulse Ox 99 94 96 97 O2 Delivery Nasal Cannula Nasal Cannula NIV Bilevel Nasal Cannula O2 Flow Rate 3.50 3.00 3.00 FiO2 30 08/28/18 08/28/18 08/28/18 08/28/18 08:43 09:00 10:00 11:00 Temp 100.1 100.3 Pulse 99 109 109 Resp 16 16 15 B/P (MAP) 138/89 (105) 121/71 (88) 145/84 (104) Pulse Ox 97 95 95 O2 Delivery Nasal Cannula Nasal Cannula Nasal Cannula O2 Flow Rate 3.00 3.00 3.00 08/28/18 08/28/18 08/28/18 08/28/18 11:00 11:20 11:20 11:29 Temp 98.3 97.9 98.0 Pulse Ox 93 O2 Delivery Nasal Cannula Nasal Cannula O2 Flow Rate 3.00 3.50 08/28/18 08/28/18 12:00 13:00 Pulse 110 117 Resp 14 B/P (MAP) 168/104 (125) Pulse Ox 95 O2 Delivery Nasal Cannula O2 Flow Rate 3.00 08/28/18 00:00 Intake Total 1695 ml Output Total 975 ml Balance 720 ml Weight (Pounds): 400 Weight (Ounces): 0.0 Weight (Calculated Kilograms): 181.625521 Constitutional: appears stated age, well-developed, well-nourished Respiratory: chest is bilaterally symmetric, rhonchi, other (decreased breath sounds bilaterally.) Cardiovascular: regular rate-rhythm, tachycardia, S1 and S2 Gastrointestional: No tender, No soft, No round, No distended, No pulsatile mass, No organomegaly, No guarding, No rebound, No tenderness, No hernia, No mass, No audible bowel sounds, No abnormal bowel sounds, No abdominal bruits, No spleenomegaly, No other Extremities: No normal range of motion, No non-tender, No normal inspection, No pedal edema, No calf tenderness, No normal capillary refill, No pelvis stable , No calf tenderness, No inflammation, No pedal edema, No slow capillary refill , No swelling, No other, No abrasion, No clubbing, No cyanosis, No ecchymosis, No laceration, No no lower extremity edema bilateral, No significant edema, No tenderness, No wound Neurologic/Psychiatric: no motor/sensory deficits, alert, normal mood/affect, oriented x 3, power is 5/5 both on sides Skin: No normal color, No warm/dry, No cyanosis, No cool, No diaphoresis, No damp, No ecchymosis, No jaundice, No mottled, No pallor, No rash, No tattoos/ piercings, No ulcerations, No rash on exposed areas, No ulcerations on exposed areas, No other Results/Procedures: Labs Laboratory Tests 08/27/18 13:41: Glucometer 60*L 08/27/18 13:45: White Blood Count 14.4H, Red Blood Count 5.35, Hemoglobin 14.7, Hematocrit 46, Mean Corpuscular Volume 86, Mean Corpuscular Hemoglobin 28, Mean Corpuscular Hemoglobin Concent 32, Red Cell Distribution Width 18.6H, Platelet Count 145, Mean Platelet Volume 10.7H, Neutrophils (%) (Auto) 90H, Lymphocytes (%) (Auto) 4L, Monocytes (%) (Auto) 6, Eosinophils (%) (Auto) 0, Basophils (%) (Auto) 0, Neutrophils # (Auto) 12.9H, Lymphocytes # (Auto) 0.5L, Monocytes # (Auto) 0.8, Eosinophils # (Auto) 0.1, Basophils # (Auto) 0.0, Neutrophils % (Manual) 75, Lymphocytes % (Manual) 8, Monocytes % (Manual) 4, Eosinophils % (Manual) 1, Basophils % (Manual) 0, Band Neutrophils 12, Anisocytosis SLIGHT, Prothrombin Time 17.1H, INR Comment 1.3, Activated Partial Thromboplast Time 31, Urine Color YELLOW, Urine Clarity CLEAR, Urine pH 8, Urine Specific [place] 1.015L, Urine Protein 2+H, Urine Glucose (UA) NEGATIVE, Urine Ketones NEGATIVE, Urine Nitrite NEGATIVE, Urine Bilirubin NEGATIVE, Urine Urobilinogen 4H, Urine Leukocyte Esterase NEGATIVE, Urine RBC (Auto) NEGATIVE, Urine RBC RARE, Urine WBC RARE, Urine Squamous Epithelial Cells 0-2, Urine Crystals NONE, Urine Bacteria NEGATIVE, Urine Casts NONE, Urine Mucus NEGATIVE, Urine Culture Indicated NO, Blood Gas Puncture Site UNK, Blood Gas Patient Temperature 96.8, Arterial Blood pH 7.45H, Arterial Blood Partial Pressure CO2 51H, Arterial Blood Partial Pressure O2 129H, Arterial Blood HCO3 35H, Arterial Blood Total CO2 37.0H, Arterial Blood Oxygen Saturation 97, Arterial Blood Base Excess 10.6H , Vitaly Test UNK, Blood Gas Ventilator Setting NA, Blood Gas Inspired Oxygen UNK , Sodium Level 142, Potassium Level 2.9L, Chloride Level 96L, Carbon Dioxide Level 31, Anion Gap 15H, Blood Urea Nitrogen 20H, Creatinine 1.16, Estimat Glomerular Filtration Rate > 60, BUN/Creatinine Ratio 17, Glucose Level 57*L, Lactic Acid Level 2.37*H, Calcium Level 10.7H, Corrected Calcium 10.4H, Magnesium Level 1.7L, Total Bilirubin 1.8H, Aspartate Amino Transf (AST/SGOT) 25 , Alanine Aminotransferase (ALT/SGPT) 17, Alkaline Phosphatase 120, Total Creatine Kinase 130, Troponin I < 0.028, B-Type Natriuretic Peptide 137.7H, Total Protein 7.7, Albumin 4.4 08/27/18 14:12: Glucometer 96 08/27/18 14:35: Glucometer 71 08/27/18 16:38: Lactic Acid Level 2.61*H 08/27/18 16:50: Glucometer 70 08/27/18 21:50: Glucometer 79 08/28/18 03:10: Lactic Acid Level 1.44, White Blood Count 14.2H, Red Blood Count 4.86, Hemoglobin 13.0L, Hematocrit 42, Mean Corpuscular Volume 86, Mean Corpuscular Hemoglobin 27, Mean Corpuscular Hemoglobin Concent 31L, Red Cell Distribution Width 18.6H, Platelet Count 145, Mean Platelet Volume 10.0, Neutrophils (%) ( Auto) 93H, Lymphocytes (%) (Auto) 3L, Monocytes (%) (Auto) 4, Eosinophils (%) ( Auto) 0, Basophils (%) (Auto) 0, Neutrophils # (Auto) 13.1H, Lymphocytes # (Auto ) 0.4L, Monocytes # (Auto) 0.6, Eosinophils # (Auto) 0.0, Basophils # (Auto) 0.0 , Sodium Level 140, Potassium Level 3.2L, Chloride Level 98, Carbon Dioxide Level 28, Anion Gap 14, Blood Urea Nitrogen 20H, Creatinine 0.94, Estimat Glomerular Filtration Rate > 60, BUN/Creatinine Ratio 21, Glucose Level 79, Calcium Level 9.3, Phosphorus Level 3.5, Magnesium Level 1.7L, Troponin I < 0.028 08/28/18 10:58: Blood Gas Puncture Site RR, Blood Gas Patient Temperature 98.4, Arterial Blood pH 7.45H, Arterial Blood Partial Pressure CO2 49H, Arterial Blood Partial Pressure O2 81, Arterial Blood HCO3 33H, Arterial Blood Total CO2 34.9H, Arterial Blood Oxygen Saturation 95, Arterial Blood Base Excess 9.0H, Vitaly Test YES-POS, Blood Gas Ventilator Setting NO, Blood Gas Inspired Oxygen 3 08/28/18 11:20: Glucometer 157H Microbiology 08/27/18 Blood Culture - Preliminary, Resulted Gram Positive Cocci 08/27/18 Urine Culture - Final, Complete NO GROWTH A/P: Assessment/Dx: Acute respiratory failure, Mild elevation of BNP, Hypoglycemia, Hypokalemia, Hypomagnesemia, Lactic acidosis with leukocytosis, History of LVH with diastolic dysfunction. Plan: Acute respiratory failure, improved significantly. Currently only on nasal oxygen. Mild elevation of BNP, will recommend an echocardiogram. Hypoglycemia, D50 Hypokalemia, potassium supplementation. Hypomagnesemia, magnesium supplementation. Lactic acidosis with leukocytosis, sepsis needs to be ruled out. History of LVH with diastolic dysfunction. Repeat echocardiogram. Obstructive sleep apnea, Chronic edema, chronic venous stasis changes, workup in the past showed normal left ventricular systolic function with ejection fraction 70 percent on the MPI by Dr. Becker in July 2017. Last echo was done in 2015. Cardiac catheterization done in 2009 and reported to have normal coronaries Morbid obesity. Generalized weakness and loss of energy. Thank you for your consultation. Please call me if you have any questions. Juancarlos Nicole MD, FACP, FACC, FSCAI, FHRS, CCDS Interventional Cardiology Cardiac Electrophysiology Vascular Medicine and Endovascular Interventions Focused Exam Lactate Level 08/27/18 13:45: Lactic Acid Level 2.37*H 08/27/18 16:38: Lactic Acid Level 2.61*H 08/28/18 03:10: Lactic Acid Level 1.44 Alexandra NICOLE MD August 28, 2018 13:15
[2018-08-28] MEDS: AZITHROMYCIN 500 MG/NS 250 ML IVPB IV SCH ×2 (18:32)
[2018-08-28] MEDS ORDERED: morphine INJ 4 MG/ML 1 ML (VIAL/SYRINGE) ONE (22:23)
[2018-08-29] VITALS (11 sets, daily range): BP systolic 119–160; BP diastolic 76–101
[2018-08-29] MEDS: ACETAMINOPHEN 325 MG TABLET PO PRN ×2 (00:21→20:57)
[2018-08-29] MEDS: morphine INJ 4 MG/ML 1 ML (VIAL/SYRINGE) IVP PRN ×4 (01:19→13:58)
[2018-08-29] MEDS: KETOROLAC 30 MG/ML VIAL IVP PRN (01:19)
[2018-08-29 03:50] LABS: BASOPHILS % (AUTO) 0 % (0-10); EOSINOPHILS # (AUTO) 0.2 10^3/uL (0.0-0.3); EOSINOPHILS % (AUTO) 2 % (0-10); HEMATOCRIT 40 % (40-54); HEMOGLOBIN 12.4 G/DL (13.3-17.7); LYMPHOCYTES # (AUTO) 0.7 X 10^3 (1.0-4.0); LYMPHOCYTES % (AUTO) 8 % (12-44); MEAN CORPUSCULAR HEMOGLOBIN 27 PG (25-34); MEAN CORPUSCULAR HGB CONC 31 G/DL (32-36); MEAN CORPUSCULAR VOLUME 87 FL (80-99); MONOCYTES # (AUTO) 0.8 X 10^3 (0.0-1.0); MONOCYTES % (AUTO) 9 % (0-12); NEUTROPHILS # (AUTO) 6.7 X 10^3 (1.8-7.8); NEUTROPHILS % (AUTO) 80 % (42-75); PLATELET COUNT 123 10^3/uL (130-400); RED CELL DISTRIBUTION WIDTH 18.5 % (10.0-14.5); WHITE BLOOD COUNT 8.4 10^3/uL (4.3-11.0)
[2018-08-29 04:06] LABS: BUN/CREATININE RATIO 18; CALCIUM 9.7 MG/DL (8.5-10.1); CARBON DIOXIDE 27 MMOL/L (21-32); CHLORIDE 98 MMOL/L (98-107); CREATININE SERUM 1.12 MG/DL (0.60-1.30); GFR ESTIMATED > 60; GLUCOSE 212 MG/DL (70-105); MAGNESIUM 2.1 MG/DL (1.8-2.4); PHOSPHORUS 2.7 MG/DL (2.3-4.7); POTASSIUM 3.2 MMOL/L (3.6-5.0); SODIUM 140 MMOL/L (135-145)
--- NOTE | 2018-08-29 04:56 | Pulmonary Progress Note ---
Subjective Time Seen by a Provider: 06:32 Subjective/Events-last exam Complains of SOB. Sepsis Event Evaluation Height, Weight, BMI Height: 5'10.00" Weight: 400lbs. 0.0oz. [id number]; 56.3 BMI Method:Stated Focused Exam Lactate Level 08/27/18 13:45: Lactic Acid Level 2.37*H 08/27/18 16:38: Lactic Acid Level 2.61*H 08/28/18 03:10: Lactic Acid Level 1.44 Exam Exam Vital Signs Date Time Temp Pulse Resp B/P (MAP) Pulse Ox O2 Delivery O2 Flow Rate FiO2 08/29/18 04:00 131 19 130/86 (101) 90 NIV CPAP 3.00 08/29/18 03:00 130 30 132/83 (99) 90 NIV CPAP 3.00 08/29/18 02:00 130 18 142/86 (104) 88 NIV CPAP 3.00 08/29/18 01:00 130 08/29/18 01:00 131 24 131/80 (97) 93 NIV CPAP 3.00 08/29/18 00:00 131 15 131/76 (94) 92 NIV CPAP 3.00 08/29/18 00:00 95 NIV CPAP 4.00 08/28/18 23:29 NIV CPAP 3.00 08/28/18 23:00 131 22 165/106 (125) 90 Nasal Cannula 3.00 08/28/18 22:00 118 15 136/85 (102) 93 Nasal Cannula 3.00 08/28/18 21:00 130 19 144/91 (108) 94 Nasal Cannula 3.00 08/28/18 20:05 94 Nasal Cannula 3.50 08/28/18 20:00 131 29 143/103 (116) 92 Nasal Cannula 3.00 08/28/18 20:00 96 Nasal Cannula 4.00 08/28/18 19:28 97.6 124 24 128/64 (85) 95 Nasal Cannula 3.00 08/28/18 19:00 130 08/28/18 18:00 130 24 200/121 (147) 96 Nasal Cannula 3.00 08/28/18 18:00 98.3 08/28/18 17:00 126 18 153/88 (109) 95 Nasal Cannula 3.00 08/28/18 16:00 94 NIV Bilevel 30 08/28/18 16:00 126 24 134/87 (103) 95 Nasal Cannula 3.00 08/28/18 15:00 128 20 123/109 (114) 93 Nasal Cannula 3.00 08/28/18 14:28 92 Nasal Cannula 3.50 08/28/18 14:00 117 22 136/93 (107) 94 Nasal Cannula 3.00 08/28/18 13:00 116 28 160/100 (120) 94 Nasal Cannula 3.00 08/28/18 13:00 117 08/28/18 12:00 110 14 168/104 (125) 95 Nasal Cannula 3.00 08/28/18 12:00 95 NIV Bilevel 30 08/28/18 11:59 98.3 08/28/18 11:29 98.0 08/28/18 11:20 93 Nasal Cannula 3.50 08/28/18 11:20 97.9 08/28/18 11:00 98.3 Nasal Cannula 3.00 08/28/18 11:00 109 15 145/84 (104) 95 Nasal Cannula 3.00 08/28/18 10:00 109 16 121/71 (88) 95 Nasal Cannula 3.00 08/28/18 09:00 100.3 99 16 138/89 (105) 97 Nasal Cannula 3.00 08/28/18 08:43 100.1 08/28/18 08:00 99 16 138/89 (105) 97 Nasal Cannula 3.00 08/28/18 08:00 96 NIV Bilevel 30 08/28/18 07:00 108 22 124/96 (105) 94 Nasal Cannula 3.00 08/28/18 07:00 99 Nasal Cannula 3.50 08/28/18 07:00 109 08/28/18 06:23 Nasal Cannula 3.00 08/28/18 06:21 100.6 08/28/18 06:00 96 22 134/86 (102) 98 NIV Bilevel 30.00 08/28/18 05:00 96 19 132/85 (101) 98 NIV Bilevel 30.00 I & O 08/29/18 07:00 Intake Total 1060 ml Output Total 1125 ml Balance -65 ml Height & Weight Height: 5'10.00" Weight: 400lbs. 0.0oz. 181.817462je; 56.3 BMI Method:Stated General Appearance: WD/WN, Chronically ill, Mild Distress, Obese HEENT: PERRL/EOMI, Normal ENT Inspection, Pharynx Normal, Moist Mucous Membranes Neck: Full Range of Motion, Normal Inspection, Non Tender Respiratory: Chest Non Tender, Lungs Clear, No Accessory Muscle Use, No Respiratory Distress, Crackles, Decreased Breath Sounds Cardiovascular: Regular Rate, Rhythm, No Edema, No Gallop, No JVD, No Murmur, Normal Peripheral Pulses Capillary Refill: Less Than 3 Seconds Peripheral Pulses: 2+ Radial Pulses (R), 2+ Radial Pulses (L) Gastrointestinal: normal bowel sounds, non tender, soft Extremity: Normal Capillary Refill, Normal Inspection, Normal Range of Motion, Non Tender, No Calf Tenderness, No Pedal Edema Neurologic/Psychiatric: Alert, Oriented x3, No Motor/Sensory Deficits, Normal Mood/Affect Skin: Normal Color, Warm/Dry Lymphatic: No Adenopathy Results Lab Laboratory Tests 08/27/18 13:45 08/28/18 03:10 08/29/18 03:12 Assessment/Plan Assessment/Plan Acute on chronic respiratory failure with OHS - improved -easy pap with duoneb -BiPAP qhs AND prn Sinus tach -Restart home Lopressor Severe sepsis probably secondary to pneumonia -IVF -abx -martinez cultures Hypoglycemia -monitor Hypokalemia, -replace and monitor Lactic acidosis -IVF History of LVH with diastolic dysfunction. TAMIKA HILARIO DO August 29, 2018 04:56
[2018-08-29] MEDS ORDERED: KCL 20 MEQ TAB (K-DUR) PO ONE ×2 (05:00→08:58)
[2018-08-29] MEDS: RT-ALBUTEROL/IPRATROPIUM 3 ML (DUONEB) VIAL INH SCH ×4 (06:23→20:25)
[2018-08-29] MEDS: inSUlin ASPART (NovoLOG) 1 UNIT/0.01 ML (CHARGE PER UNIT) SC SCH ×4 (06:26→20:55)
--- NOTE | 2018-08-29 08:09 | Diagnostic Imaging Report ---
Indication: Dyspnea. Comparison: 08/28/2018. Discussion: 2 portable frontal views of the chest were obtained. Cardiomegaly is stable. Focal infiltrate within the right perihilar region and right lung base is stable and could represent a combination of pleural fluid, atelectasis, or pneumonia. Mild interstitial thickening is noted within the left lung which again is nonspecific and could be seen with atelectasis, pneumonia, or early failure. Recommend continued radiographic followup. No pneumothorax or osseous abnormality. Impression: 1. Stable right and worsening left infiltrates, as described. Dictated by: Dictated on workstation # [id number]
[2018-08-29] MEDS: meTOprolol TARTRATE 50 MG (LOPRESSOR) TAB PO SCH ×2 (09:03→20:54)
[2018-08-29] MEDS: LIDOCAINE 4% (SALONPAS) PATCH TOP SCH (09:03)
[2018-08-29] MEDS: PREGABALIN 100 MG (LYRICA) CAPSULE PO SCH ×3 (09:03→20:54)
[2018-08-29] MEDS: D5 1/2 NS W/KCL 10 MEQ/L 1,000 ML IV SCH ×2 (09:06→16:28)
[2018-08-29] MEDS: CEFEPIME 2,000 MG/SWFI 20 ML IV PUSH IV SCH ×4 (09:07→20:55)
--- NOTE | 2018-08-29 09:35 | NUR ---
Pt recieved [facility] for his echocardiogram. The pt tolerated the procedure with no complaints
--- NOTE | 2018-08-29 11:45 | Progress Note-Hospitalist ---
Subjective HPI/CC On Admission Date Seen by Provider: August 29, 2018 Time Seen by Provider: 10:30 CC: SOB HPI: This is a 62-year-old white male very debilitated individual of [facility] who has severe morbid obesity with severe obstructive sleep apnea on BiPAP who presented to the ER with shortness of breath found to have exacerbation of COPD possible early pneumonia and had sustained a fall and found down 4 hours later with only slight rhabdomyolysis. Patient was maintained on BiPAP through the night with Dr. Perez consultation. Patient currently reports his fibromyalgia has activated and causing a lot of pain everywhere in addition to chronic back pain. His BMI is 57. Overall very complex medical problems which are further complicated with severe morbid obesity. Patient reports he is less short of breath and feels like the nebulizer treatments are helping a great deal. Subjective/Events-last exam Patient moved to 4th floor Denies pain No BM but declines meds Catheter will be removed tomorrow at his request Reviewed labs and meds Review of Systems General: Fatigue Pulmonary: Dyspnea Focused Exam Lactate Level 08/27/18 13:45: Lactic Acid Level 2.37*H 08/27/18 16:38: Lactic Acid Level 2.61*H 08/28/18 03:10: Lactic Acid Level 1.44 Objective Exam Vital Signs Vital Signs Date Time Temp Pulse Resp B/P (MAP) Pulse Ox O2 Delivery O2 Flow Rate FiO2 08/29/18 16:00 97.7 99 18 144/91 (108) 92 Nasal Cannula 3.00 08/28/18 16:00 30 Capillary Refill : Less Than 3 Seconds General Appearance: No Apparent Distress, WD/WN, Chronically ill, Obese HEENT: PERRL/EOMI, Normal ENT Inspection, Pharynx Normal, Moist Mucous Membranes Neck: Full Range of Motion, Normal Inspection, Non Tender Respiratory: Chest Non Tender, Lungs Clear, No Accessory Muscle Use, No Respiratory Distress, Decreased Breath Sounds Cardiovascular: Regular Rate, Rhythm, No Edema, No Gallop, No JVD, No Murmur, Normal Peripheral Pulses Gastrointestinal: Normal Bowel Sounds, No Organomegaly, No Pulsatile Mass, Non Tender, Soft Back: Normal Inspection, No CVA Tenderness, No Vertebral Tenderness Extremity: Normal Capillary Refill, Normal Inspection, Normal Range of Motion, Non Tender, No Calf Tenderness, No Pedal Edema Neurologic/Psychiatric: Alert, Oriented x3, No Motor/Sensory Deficits, Normal Mood/Affect Skin: Normal Color, Warm/Dry Lymphatic: No Adenopathy Results/Procedures Lab Laboratory Tests 08/29/18 03:12 Patient resulted labs reviewed. Assessment/Plan Assessment and Plan Assess & Plan/Chief Complaint Assessment: Acute on chronic respiratory failure requiring BiPAP now on [place] COPD exacerbation Fibromyalgia Morbid obesity Severe obstructive sleep apnea Chronic pain Hypokalemia Plan: Pain medication Supportive care O2 and bipap at night Dr. Perez is appreciated Diagnosis/Problems Diagnosis/Problems (1) Respiratory failure with hypoxia and hypercapnia Status: Acute Qualifiers: Chronicity: acute on chronic Qualified Codes: J96.21 - Acute and chronic respiratory failure with hypoxia; J96.22 - Acute and chronic respiratory failure with hypercapnia (2) COPD with acute exacerbation Status: Acute (3) Pneumonia Status: Acute Qualifiers: Pneumonia type: due to unspecified organism Laterality: unspecified laterality Lung location: unspecified part of lung Qualified Codes: J18.9 - Pneumonia, unspecified organism (4) Hypoglycemia Status: Acute (5) Morbid obesity with BMI of 50.0-59.9, adult Status: Chronic (6) Obstructive sleep apnea Status: Chronic (7) Multiple falls Status: Chronic (8) Fibromyalgia Status: Chronic (9) Neuropathy Status: Chronic Clinical Quality Measures DVT/VTE Risk/Contraindication: Risk Factor Score Per Nursin RFS Level Per Nursing on Admit: 4+=Very High JEROD BRAUN DO August 29, 2018 11:45
--- NOTE | 2018-08-29 14:54 | NUR ---
patient did not get his 1000 svn bt due to RT went to patients room at 1058 to give him his SVN BT of Duoneb but ESPERANZA Shirley and Elsa Cassidy was cleaning patient up! Both RT's ended up in the ER to take care of different patients and did not get back until 1 hr after tx was due
[2018-08-29] MEDS: AZITHROMYCIN 500 MG/NS 250 ML IVPB IV SCH ×2 (16:27)
--- NOTE | 2018-08-29 19:21 | Cardiology Progress Note ---
Cardiology SOAP Progress Note Subjective: Improvement in shortness of breath. Objective: I&O/Vital Signs 08/29/18 08/29/18 08/29/18 08/29/18 08:00 08:00 12:00 14:50 Temp 97.0 98.2 Pulse 121 122 Resp 20 20 B/P (MAP) 160/90 (113) 141/89 (106) Pulse Ox 95 94 94 O2 Delivery Nasal Cannula Nasal Cannula Nasal Cannula Nasal Cannula O2 Flow Rate 3.00 4.00 3.00 3.00 08/29/18 16:00 Temp 97.7 Pulse 99 Resp 18 B/P (MAP) 144/91 (108) Pulse Ox 92 O2 Delivery Nasal Cannula O2 Flow Rate 3.00 08/29/18 00:00 Intake Total 990 ml Output Total 725 ml Balance 265 ml Weight (Pounds): 407 Weight (Ounces): 0.0 Weight (Calculated Kilograms): 184.503237 Constitutional: appears stated age, well-developed, well-nourished Respiratory: chest is bilaterally symmetric, rhonchi, other (decreased breath sounds bilaterally.) Cardiovascular: regular rate-rhythm, tachycardia, S1 and S2 Gastrointestional: No tender, No soft, No round, No distended, No pulsatile mass, No organomegaly, No guarding, No rebound, No tenderness, No hernia, No mass, No audible bowel sounds, No abnormal bowel sounds, No abdominal bruits, No spleenomegaly, No other Extremities: No normal range of motion, No non-tender, No normal inspection, No pedal edema, No calf tenderness, No normal capillary refill, No pelvis stable , No calf tenderness, No inflammation, No pedal edema, No slow capillary refill , No swelling, No other, No abrasion, No clubbing, No cyanosis, No ecchymosis, No laceration, No no lower extremity edema bilateral, No significant edema, No tenderness, No wound Neurologic/Psychiatric: no motor/sensory deficits, alert, normal mood/affect, oriented x 3, power is 5/5 both on sides Skin: No normal color, No warm/dry, No cyanosis, No cool, No diaphoresis, No damp, No ecchymosis, No jaundice, No mottled, No pallor, No rash, No tattoos/ piercings, No ulcerations, No rash on exposed areas, No ulcerations on exposed areas, No other Results/Procedures: Labs Laboratory Tests 08/28/18 21:33: Glucometer 194H 08/29/18 03:12: White Blood Count 8.4, Red Blood Count 4.58, Hemoglobin 12.4L, Hematocrit 40, Mean Corpuscular Volume 87, Mean Corpuscular Hemoglobin 27, Mean Corpuscular Hemoglobin Concent 31L, Red Cell Distribution Width 18.5H, Platelet Count 123L, Mean Platelet Volume 10.0, Neutrophils (%) (Auto) 80H, Lymphocytes (%) (Auto) 8L , Monocytes (%) (Auto) 9, Eosinophils (%) (Auto) 2, Basophils (%) (Auto) 0, Neutrophils # (Auto) 6.7, Lymphocytes # (Auto) 0.7L, Monocytes # (Auto) 0.8, Eosinophils # (Auto) 0.2, Basophils # (Auto) 0.0, Sodium Level 140, Potassium Level 3.2L, Chloride Level 98, Carbon Dioxide Level 27, Anion Gap 15H, Blood Urea Nitrogen 20H, Creatinine 1.12, Estimat Glomerular Filtration Rate > 60, BUN /Creatinine Ratio 18, Glucose Level 212H, Calcium Level 9.7, Phosphorus Level 2.7, Magnesium Level 2.1 08/29/18 11:38: Glucometer 204H 08/29/18 15:34: Glucometer 239H Microbiology 08/27/18 Blood Culture - Preliminary, Resulted No growth 08/27/18 Urine Culture - Final, Complete NO GROWTH A/P: Assessment/Dx: Acute respiratory failure, Mild elevation of BNP, Hypoglycemia, Hypokalemia, Hypomagnesemia, Lactic acidosis with leukocytosis, History of LVH with diastolic dysfunction. Plan: Acute respiratory failure, improved significantly. Currently only on nasal oxygen. Mild elevation of BNP, echocardiogram done 08/29/2018 showed normal LV size and function. Mild concentric LVH with no significant diastolic dysfunction. Hypoglycemia, D50 Hypokalemia, potassium supplementation. Hypomagnesemia, magnesium supplementation. Lactic acidosis with leukocytosis, sepsis needs to be ruled out. History of LVH with diastolic dysfunction. Repeat echocardiogram. Obstructive sleep apnea, Chronic edema, chronic venous stasis changes, workup in the past showed normal left ventricular systolic function with ejection fraction 70 percent on the MPI by Dr. Becker in July 2017. Last echo was done in 2015. Cardiac catheterization done in 2009 and reported to have normal coronaries Morbid obesity. Generalized weakness and loss of energy. Thank you for your consultation. Please call me if you have any questions. Juancarlos Nicole MD, FACP, FACC, FSCAI, FHRS, CCDS Interventional Cardiology Cardiac Electrophysiology Vascular Medicine and Endovascular Interventions Focused Exam Lactate Level 08/27/18 13:45: Lactic Acid Level 2.37*H 08/27/18 16:38: Lactic Acid Level 2.61*H 08/28/18 03:10: Lactic Acid Level 1.44 Alexandra NICOLE MD August 29, 2018 19:21
[2018-08-29] MEDS ORDERED: WATER (STERILE) FOR INJECTION 20 ML ONE (20:00)
[2018-08-29] MEDS ORDERED: CEFEPIME 2 GM (MAXIPIME) VIAL ONE (20:00)
[2018-08-30] VITALS (7 sets, daily range): BP systolic 130–171; BP diastolic 65–105
[2018-08-30 05:07] LABS: BASOPHILS % (AUTO) 0 % (0-10); EOSINOPHILS # (AUTO) 0.3 10^3/uL (0.0-0.3); EOSINOPHILS % (AUTO) 5 % (0-10); HEMATOCRIT 41 % (40-54); HEMOGLOBIN 12.6 G/DL (13.3-17.7); LYMPHOCYTES # (AUTO) 0.8 X 10^3 (1.0-4.0); LYMPHOCYTES % (AUTO) 12 % (12-44); MEAN CORPUSCULAR HEMOGLOBIN 27 PG (25-34); MEAN CORPUSCULAR HGB CONC 31 G/DL (32-36); MEAN CORPUSCULAR VOLUME 87 FL (80-99); MEAN PLATELET VOLUME 10.5 FL (7.4-10.4); MONOCYTES # (AUTO) 0.6 X 10^3 (0.0-1.0); MONOCYTES % (AUTO) 9 % (0-12); NEUTROPHILS # (AUTO) 5.2 X 10^3 (1.8-7.8); NEUTROPHILS % (AUTO) 74 % (42-75); PLATELET COUNT 134 10^3/uL (130-400); RED CELL DISTRIBUTION WIDTH 18.7 % (10.0-14.5)
[2018-08-30 05:28] LABS: BUN/CREATININE RATIO 19; CALCIUM 9.7 MG/DL (8.5-10.1); CARBON DIOXIDE 25 MMOL/L (21-32); CHLORIDE 101 MMOL/L (98-107); CREATININE SERUM 1.02 MG/DL (0.60-1.30); GFR ESTIMATED > 60; GLUCOSE 232 MG/DL (70-105); MAGNESIUM 2.4 MG/DL (1.8-2.4); PHOSPHORUS 2.3 MG/DL (2.3-4.7); POTASSIUM 4.2 MMOL/L (3.6-5.0); SODIUM 139 MMOL/L (135-145)
[2018-08-30] MEDS: D5 1/2 NS W/KCL 10 MEQ/L 1,000 ML IV SCH ×2 (05:36→11:06)
[2018-08-30] MEDS: inSUlin ASPART (NovoLOG) 1 UNIT/0.01 ML (CHARGE PER UNIT) SC SCH ×4 (06:14→21:52)
[2018-08-30] MEDS: RT-ALBUTEROL/IPRATROPIUM 3 ML (DUONEB) VIAL INH SCH ×5 (06:44→19:20)
[2018-08-30] MEDS: LIDOCAINE 4% (SALONPAS) PATCH TOP SCH (08:15)
[2018-08-30] MEDS: meTOprolol TARTRATE 50 MG (LOPRESSOR) TAB PO SCH ×2 (08:15→21:50)
[2018-08-30] MEDS: PREGABALIN 100 MG (LYRICA) CAPSULE PO SCH ×3 (08:15→21:49)
--- NOTE | 2018-08-30 09:40 | Progress Note-Cardiology ---
Cardiology SOAP Progress Note Subjective: Sitting up in a chair at the bedside. Reports some SOB this morning. No c/o CP , palpitations, syncope or near syncope. C/O generalized body aches. Objective: I&O/Vital Signs 08/30/18 08/30/18 08/30/18 08/30/18 00:57 04:48 06:48 08:00 Temp 97.8 97.6 98.0 Pulse 86 83 106 Resp 18 18 22 B/P (MAP) 148/95 (112) 130/69 (89) 139/65 (89) Pulse Ox 93 94 92 93 O2 Delivery NIV CPAP NIV CPAP Nasal Cannula NIV CPAP O2 Flow Rate 3.00 3.00 3.00 3.00 08/30/18 08/30/18 09:00 12:00 Temp 98.4 Pulse 101 Resp 22 B/P (MAP) 147/67 (93) Pulse Ox 93 O2 Delivery Nasal Cannula NIV CPAP O2 Flow Rate 3.00 3.00 08/30/18 00:00 Intake Total 1690 ml Output Total 550 ml Balance 1140 ml Weight (Pounds): 411 Weight (Ounces): 8.4 Weight (Calculated Kilograms): 186.074439 Constitutional: appears stated age, well-developed, well-nourished Respiratory: chest is bilaterally symmetric, rhonchi, other (decreased breath sounds bases bilaterally.) Cardiovascular: regular rate-rhythm, S1 and S2 Gastrointestional: No tender; soft, audible bowel sounds Extremities: other (Bilat LE swelling with SOFIA wraps in place - not removed) Neurologic/Psychiatric: oriented x 3, power is 5/5 both on sides Skin: other (Multiple bruises to torso and arms) Results/Procedures: Labs Laboratory Tests 08/29/18 15:34: Glucometer 239H 08/29/18 20:13: Glucometer 248H 08/30/18 04:35: White Blood Count 7.0, Red Blood Count 4.67, Hemoglobin 12.6L, Hematocrit 41, Mean Corpuscular Volume 87, Mean Corpuscular Hemoglobin 27, Mean Corpuscular Hemoglobin Concent 31L, Red Cell Distribution Width 18.7H, Platelet Count 134, Mean Platelet Volume 10.5H, Neutrophils (%) (Auto) 74, Lymphocytes (%) (Auto) 12 , Monocytes (%) (Auto) 9, Eosinophils (%) (Auto) 5, Basophils (%) (Auto) 0, Neutrophils # (Auto) 5.2, Lymphocytes # (Auto) 0.8L, Monocytes # (Auto) 0.6, Eosinophils # (Auto) 0.3, Basophils # (Auto) 0.0, Sodium Level 139, Potassium Level 4.2, Chloride Level 101, Carbon Dioxide Level 25, Anion Gap 13, Blood Urea Nitrogen 19H, Creatinine 1.02, Estimat Glomerular Filtration Rate > 60, BUN /Creatinine Ratio 19, Glucose Level 232H, Calcium Level 9.7, Phosphorus Level 2.3, Magnesium Level 2.4 08/30/18 11:41: Glucometer 201H Microbiology 08/27/18 Blood Culture - Preliminary, Resulted No growth 08/27/18 Urine Culture - Final, Complete NO GROWTH Laboratory Tests 08/29/18 03:12 08/30/18 04:35 A/P: Assessment: Acute on chronic respiratory failure - management per Pulmonary and Medical services Echocardiogram of 08-29-[address] Nicole showed LVEF 70-75%. Concentric hypertrophy. PASP 40 mmHg. Chronic CHUNG and sleep apnea, related to obesity-hypoventilation syndrome No evidence of myocardial ischemia or infarction, LVEF 72% on MPI of July 2017 Hypertension Hypertriglyceridemia Obesity with BMI approx 51 H/o isolated PVCs Mild enlargement of LA and aortic root on echo 2009 Normal cors and normal cardiac hemodynamics reported on cardiac cath of July [address] Nisa Clark DJD DM II H/o depression, currently controlled Chronic variable leg swelling and stasis dermatitis and venous leg ulcers, likely related to venous insuff CKD stage 3 - 4, likely due to diabetic nephropathy - follows with Dr. Mina Lassiter of nephrology services Not suitable of SOFIA-inhib or ARB due a h/o hyperkalemia on those agents Minimal bilat carotid arterial disease per u/s of July 2017 Plan: Continue current medication regimen Monitor lab closely Further recs will be based on his hospital course Physician Assessment Physician Assessment No cp or palp or syncope. Chronic exertional shortness of breath Gen malaise Lungs: good bilat air entry, but diminished at the bases Cor: reg Ext: no c/c. Chronic, mod edema, pitting and non-pitting A&R * As documented in our note above that I updated (italics) and as noted below * Monitor labs * I discussed his CV issues with him and answered CV-related questions SAM MOBLEY [employer] THREADING MACHINE FEEDER August 30, 2018 09:40 FLORIN GREENBERG MD [facility] August 30, 2018 12:52
[2018-08-30] MEDS ORDERED: CEFEPIME 2 GM (MAXIPIME) VIAL ONE ×2 (10:50→21:44)
[2018-08-30] MEDS ORDERED: WATER (STERILE) FOR INJECTION 20 ML ONE ×2 (10:50→21:44)
--- NOTE | 2018-08-30 10:54 | Physical Therapy Daily Note ---
PT Daily Note-Current Subjective Pt reports he is in pain all over, listed out all of his debilities, states a little more pain than usual today but was easier getting out of bed and needed less help. Pain Numeric Pain Scale: 10-Worst Possible Pain Comment: fibromyalgia and arthritis pain, does not like to be touched at all Appearance Pt in [place] [facility] [place]. At end of session, pt sitting up in recliner, LE's' elevated, call light, phone and bedside table within reach Mental Status Patient Orientation: Person, Place, Time, Eyes Open Attachments: Oxygen, Gonzalez Catheter, IV Transfers Therapy Code Descriptions/Definitions Functional [place] Measure: 0=Not Assessed/NA 4=Minimal Assistance 1=Total Assistance 5=Supervision or Setup 2=Maximal Assistance 6=Modified [place] 3=Moderate Assistance 7=Complete [place] Therapy Quality Codes: 6 Independent with activity with or without an assistive device 5 Patient requires set up or clean up by helper. Patient completes activity by themselves 4 Supervision or touching assist (CGA). [place] provide cues , steadying assist 3 The helper provides less than half the effort to complete the activity 2 The helper provides more than half the effort to complete the activity 1 Dependent. The helper does all the effort to complete an activity 7 Patient refused to complete or attempt activity 9 The patient did not perform the activity before the current illness or injury 88 Not attempted due to Medical conditions or safety concerns Transfers (B, C, W/C) (FIM): 4 Sit to/from Stand: 4 CGA to min A with all sit to and from transfers performed this session. Pt with uncontrolled descent into chair Weight Bearing Full Weight Bearing Full Weight Bearing Gait Training Gait (FIM): 1 Distance (FIM): 1=up to 49 ft Distance: 15 Gait Level of Assist: 4 Gait Persons Needed: 1 Gait Assistive Device: FWW very slow gait, WBOS, lateral sway, BLE ER, no LOB, increased SOA upon completion of distance Exercises Supine Ex: Quad Set (15) Supine Reps: 15 (B hip IR/ER) Seated Therapy Exercises: Ankle pumps (30), Long arc quads (30), Hip flexion ( 30) Seated Reps: 30 (crunches performed from back of recliner slightly reclined, use of hands on armrests and LE's on floor x10 reps) Treatments transfer, gait, safety, functional mobility, activity tolerance, strength, balance, toileting Assessment Current Status: Good Progress PT Short Term Goals Short Term Goals Time Frame: September 11, 2018 Transfers (B,C,W/C) (FIM): 4 Gait (FIM): 1 Distance (FIM): 4=206-33 ft Gait Distance Comment: 50ft Gait Level of Assist: 2 Gait Assistive Device: FWW PT Plan Treatment/Plan Treatment Plan: Continue Plan of Care Treatment Plan: Bed Mobility, Functional Activity Ghulam, Functional Strength, Gait, Safety, Therapeutic Exercise, Transfers Treatment Duration: September 11, 2018 Frequency: 5 times per week Estimated Hrs Per Day: .25 hour per day Patient and/or Family Agrees t: Yes Safety Risks/Education Patient Education: Gait Training, Transfer Techniques, Safety Issues Teaching Recipient: Patient Teaching Methods: Demonstration, Discussion Response to Teaching: Verbalize Understanding, Return Demonstration Time/GCodes Time In: 850 Time Out: 911 Total Billed Treatment Time: 21 Total Billed Treatment 1 visit, EX x1 unit BELL [employer]RON CO[employer]ULATING BATH OPERATOR August 30, 2018 10:54
[2018-08-30] MEDS: CEFEPIME 2,000 MG/SWFI 20 ML IV PUSH IV SCH ×4 (11:06→21:51)
[2018-08-30] MEDS: ACETAMINOPHEN 325 MG TABLET PO PRN (11:10)
[2018-08-30] MEDS ORDERED: VITA1TAB33 PO (11:39)
[2018-08-30] MEDS ORDERED: FURO20TA4 PO (11:39)
[2018-08-30] MEDS ORDERED: POLY17PO6 PO (11:39)
[2018-08-30] MEDS ORDERED: DIPH25CA79 PO (11:39)
--- NOTE | 2018-08-30 11:39 | NUR ---
WENT OVER THE EXT MED HX WITH THE PATIENT AND HE VERIFIED HOW HE TAKES EACH MEDICATION.
--- NOTE | 2018-08-30 11:46 | Physician Query Clarification ---
PQ-Conflicting Diagnosis Admission/Discharge Admission Date: August 27, 2018 at 15:45 Discharge Date: The medical record reflects the following clinical scenario: History/Risk Factors: Acute on chronic respiratory failure COPD exacerbation Pneumonia Clinical Findings: WBC 14.4, Bands12, T96.8 rising to 102.3, pulse 113, resp 22 rising to 34, BP 131/78, pulse ox 95, Lactic acid 2.37 rising to 2.61, Blood culture positive showing Strep agalactiae Group B. Treatment: IV Cefepime HCI, IV Azithromycin. Question: Do you agree with the impression of Severe Sepsis probably due to pneumonia per Dr. Perez? If so, is the sepsis specified to Group B Strep?Please document a response below. PHYSICIAN RESPONSE Do you agree w/Consulting Dx?: Yes In responding to this query, please exercise your independent professional judgment. The purpose of this communication is to more accurately reflect the complexity of your patients condition. The fact that a question is asked does not imply that any particular answer is desired or expected. Thank you for your timely response to this clarification. Requestors name: Rossi Diana [facility] Phone # [phone] THIS PHYSICIAN QUERY FORM IS A PERMANENT PART OF THE MEDICAL RECORD ROSSI DIANA August 30, 2018 11:46 JEROD BRAUN DO August 30, 2018 13:21
--- NOTE | 2018-08-30 14:08 | Progress Note (SOAP) ---
Subjective Subjective/Events-last exam Patient states that he is hurting from the top of his head to his feet. States that he is short of breath this AM but it is better then when he got here. Sitting in chair. Tolerating PO diet. Gonzalez catheter still present Review of Systems Date Seen by Provider: August 30, 2018 Time Seen by Provider: 13:15 HEENT: Head Aches Pulmonary: Dyspnea, Cough Cardiovascular: Orthopnea, Edema; No: Chest Pain, Palpitations Musculoskeletal: back pain, leg pain Focused Exam Lactate Level 08/27/18 16:38: Lactic Acid Level 2.61*H 08/28/18 03:10: Lactic Acid Level 1.44 Objective Exam Last Set of Vital Signs Vital Signs Date Time Temp Pulse Resp B/P (MAP) Pulse Ox O2 Delivery O2 Flow Rate FiO2 08/30/18 12:00 98.4 101 22 147/67 (93) 93 NIV CPAP 3.00 08/28/18 16:00 30 Capillary Refill : Less Than 3 Seconds I&O Intake and Output 08/30/18 00:00 Intake Total 1690 ml Output Total 825 ml Balance 865 ml Intake Oral 1690 ml Output Urine Total 825 ml General: Alert, Oriented X3, Moderate Distress Lungs: Other (Diminished breath sounds, diffuse wheezing, Moderate increased work of breathing) Heart: Regular Rate Extremities: Other (3+ pitting edema bilaterally) Results/Procedures Lab Laboratory Tests 08/29/18 15:34: Glucometer 239H 08/29/18 20:13: Glucometer 248H 08/30/18 04:35: White Blood Count 7.0, Red Blood Count 4.67, Hemoglobin 12.6L, Hematocrit 41, Mean Corpuscular Volume 87, Mean Corpuscular Hemoglobin 27, Mean Corpuscular Hemoglobin Concent 31L, Red Cell Distribution Width 18.7H, Platelet Count 134, Mean Platelet Volume 10.5H, Neutrophils (%) (Auto) 74, Lymphocytes (%) (Auto) 12 , Monocytes (%) (Auto) 9, Eosinophils (%) (Auto) 5, Basophils (%) (Auto) 0, Neutrophils # (Auto) 5.2, Lymphocytes # (Auto) 0.8L, Monocytes # (Auto) 0.6, Eosinophils # (Auto) 0.3, Basophils # (Auto) 0.0, Sodium Level 139, Potassium Level 4.2, Chloride Level 101, Carbon Dioxide Level 25, Anion Gap 13, Blood Urea Nitrogen 19H, Creatinine 1.02, Estimat Glomerular Filtration Rate > 60, BUN /Creatinine Ratio 19, Glucose Level 232H, Calcium Level 9.7, Phosphorus Level 2.3, Magnesium Level 2.4 08/30/18 11:41: Glucometer 201H Microbiology 08/27/18 Blood Culture - Preliminary, Resulted No growth 08/27/18 Urine Culture - Final, Complete NO GROWTH Assessment/Plan Assessment/Plan Admission Status: Inpatient Order (span 2 midnights) Reason for Inpatient Admission: Increase oxygen demand (1) Acute and chronic respiratory failure with hypoxia Status: Acute Assessment & Plan: 08/30: Dr Perez following patient (2) COPD with acute exacerbation Status: Acute Assessment & Plan: - Steroids/Antibiotics, will titrate as tolerated, PT/OT (3) VENKATA on CPAP Status: Chronic (4) Type II diabetes mellitus with complication Status: Chronic Assessment & Plan: - blood sugars AC/HS (5) Morbid obesity with BMI of 50.0-59.9, adult Status: Chronic (6) DVT prophylaxis Status: Acute Assessment & Plan: - Lovenox Clinical Quality Measures DVT/VTE Risk/Contraindication: Risk Factor Score Per Nursin RFS Level Per Nursing on Admit: 4+=Very High WESLY SEO MD August 30, 2018 14:08
--- NOTE | 2018-08-30 15:27 | Pulmonary Progress Note ---
Subjective Date Seen by a Provider: August 30, 2018 (late note for 08/29 today is 08/30 ) Time Seen by a Provider: 15:26 Subjective/Events-last exam Pt is doing better. Sepsis Event Evaluation Height, Weight, BMI Height: " Weight: 411lbs. 8.4oz. 186.274793sj; 56.3 BMI Method:Stated Focused Exam Lactate Level 08/27/18 16:38: Lactic Acid Level 2.61*H 08/28/18 03:10: Lactic Acid Level 1.44 Exam Exam Vital Signs Date Time Temp Pulse Resp B/P (MAP) Pulse Ox O2 Delivery O2 Flow Rate FiO2 08/30/18 12:00 98.4 101 22 147/67 (93) 93 NIV CPAP 3.00 08/30/18 09:00 Nasal Cannula 3.00 08/30/18 08:00 98.0 106 22 139/65 (89) 93 NIV CPAP 3.00 08/30/18 06:48 92 Nasal Cannula 3.00 08/30/18 04:48 97.6 83 18 130/69 (89) 94 NIV CPAP 3.00 08/30/18 00:57 97.8 86 18 148/95 (112) 93 NIV CPAP 3.00 08/29/18 21:00 Nasal Cannula 3.00 08/29/18 20:00 97.1 89 18 119/91 (100) 94 Nasal Cannula 3.00 08/29/18 16:00 97.7 99 18 144/91 (108) 92 Nasal Cannula 3.00 I & O 08/30/18 07:00 Intake Total 1990 ml Output Total 900 ml Balance 1090 ml Height & Weight Height: " Weight: 411lbs. 8.4oz. 186.501081qg; 56.3 BMI Method:Stated General Appearance: No Apparent Distress, WD/WN, Chronically ill, Obese HEENT: PERRL/EOMI, Normal ENT Inspection, Pharynx Normal, Moist Mucous Membranes Neck: Full Range of Motion, Normal Inspection, Non Tender Respiratory: Chest Non Tender, Lungs Clear, No Accessory Muscle Use, No Respiratory Distress, Decreased Breath Sounds Cardiovascular: Regular Rate, Rhythm, No Edema, No Gallop, No JVD, No Murmur, Normal Peripheral Pulses Capillary Refill: Less Than 3 Seconds Peripheral Pulses: 2+ Radial Pulses (R), 2+ Radial Pulses (L) Gastrointestinal: normal bowel sounds, non tender, soft Extremity: Normal Capillary Refill, Normal Inspection, Normal Range of Motion, Non Tender, No Calf Tenderness, No Pedal Edema Neurologic/Psychiatric: Alert, Oriented x3, No Motor/Sensory Deficits, Normal Mood/Affect Skin: Normal Color, Warm/Dry Lymphatic: No Adenopathy Results Lab Laboratory Tests 08/29/18 03:12 08/30/18 04:35 Assessment/Plan Assessment/Plan Acute on chronic respiratory failure with OHS - improved -easy pap with duoneb -BiPAP qhs AND prn Sinus tach -Lopressor Severe sepsis probably secondary to pneumonia -IVF -abx -martinez cultures Hypoglycemia -monitor History of LVH with diastolic dysfunction. TAMIKA HILARIO DO August 30, 2018 15:27
[2018-08-30] MEDS ORDERED: AZITHROMYCIN 250 MG TAB (ZITHROMAX) PO SCH (17:00)
[2018-08-30] MEDS: morphine INJ 4 MG/ML 1 ML (VIAL/SYRINGE) IVP PRN (21:50)
[2018-08-31 04:00] VITALS: BP 189/87
[2018-08-31] MEDS: morphine INJ 4 MG/ML 1 ML (VIAL/SYRINGE) IVP PRN (04:01)
[2018-08-31 04:46] LABS: BASOPHILS % (AUTO) 0 % (0-10); EOSINOPHILS # (AUTO) 0.3 10^3/uL (0.0-0.3); EOSINOPHILS % (AUTO) 5 % (0-10); HEMATOCRIT 41 % (40-54); LYMPHOCYTES # (AUTO) 0.8 X 10^3 (1.0-4.0); LYMPHOCYTES % (AUTO) 13 % (12-44); MEAN CORPUSCULAR HEMOGLOBIN 28 PG (25-34); MEAN CORPUSCULAR HGB CONC 32 G/DL (32-36); MEAN CORPUSCULAR VOLUME 86 FL (80-99); MEAN PLATELET VOLUME 10.4 FL (7.4-10.4); MONOCYTES # (AUTO) 0.7 X 10^3 (0.0-1.0); MONOCYTES % (AUTO) 10 % (0-12); NEUTROPHILS # (AUTO) 4.9 X 10^3 (1.8-7.8); NEUTROPHILS % (AUTO) 72 % (42-75); PLATELET COUNT 147 10^3/uL (130-400); RED CELL DISTRIBUTION WIDTH 18.2 % (10.0-14.5); WHITE BLOOD COUNT 6.7 10^3/uL (4.3-11.0)
[2018-08-31 05:16] LABS: BUN/CREATININE RATIO 18; CALCIUM 9.7 MG/DL (8.5-10.1); CARBON DIOXIDE 25 MMOL/L (21-32); CHLORIDE 102 MMOL/L (98-107); GFR ESTIMATED > 60; GLUCOSE 195 MG/DL (70-105); MAGNESIUM 2.1 MG/DL (1.8-2.4); PHOSPHORUS 2.7 MG/DL (2.3-4.7); POTASSIUM 3.6 MMOL/L (3.6-5.0); SODIUM 140 MMOL/L (135-145)
[2018-08-31] MEDS: inSUlin ASPART (NovoLOG) 1 UNIT/0.01 ML (CHARGE PER UNIT) SC SCH ×2 (06:50→11:39)
[2018-08-31] MEDS: RT-ALBUTEROL/IPRATROPIUM 3 ML (DUONEB) VIAL INH SCH ×2 (06:58→10:31)
[2018-08-31 08:00] VITALS: BP 179/101
--- NOTE | 2018-08-31 09:01 | Progress Note-Cardiology ---
Cardiology SOAP Progress Note Subjective: Sitting up in chair at the bedside. Wants to go home. Chronic body aches and pains which are unchanged. No c/o CP or palpitations. Feels SOB is at baseline. Objective: I&O/Vital Signs 08/31/18 08/31/18 08/31/18 08/31/18 04:00 06:58 08:00 09:00 Temp 96.3 97.8 Pulse 103 96 Resp 19 18 B/P (MAP) 189/87 (121) 179/101 (127) Pulse Ox 96 95 O2 Delivery Nasal Cannula Nasal Cannula Nasal Cannula Nasal Cannula O2 Flow Rate 4.00 3.00 4.00 3.00 08/31/18 10:32 Pulse Ox 96 O2 Delivery Nasal Cannula O2 Flow Rate 3.00 08/31/18 00:00 Intake Total 810 ml Output Total 350 ml Balance 460 ml Weight (Pounds): 406 Weight (Ounces): 6.0 Weight (Calculated Kilograms): 184.959409 Constitutional: appears stated age, well-developed, well-nourished Respiratory: chest is bilaterally symmetric, rhonchi, other (decreased breath sounds bases bilaterally.) Cardiovascular: regular rate-rhythm, S1 and S2 Gastrointestional: No tender; soft, audible bowel sounds Extremities: other (Bilat LE swelling with SOFIA wraps in place - not removed) Neurologic/Psychiatric: oriented x 3, power is 5/5 both on sides Skin: other (Multiple bruises to torso and arms) Results/Procedures: Labs Laboratory Tests 08/30/18 11:41: Glucometer 201H 08/30/18 15:35: Glucometer 145H 08/30/18 20:36: Glucometer 206H 08/31/18 04:40: White Blood Count 6.7, Red Blood Count 4.73, Hemoglobin 13.0L, Hematocrit 41, Mean Corpuscular Volume 86, Mean Corpuscular Hemoglobin 28, Mean Corpuscular Hemoglobin Concent 32, Red Cell Distribution Width 18.2H, Platelet Count 147, Mean Platelet Volume 10.4, Neutrophils (%) (Auto) 72, Lymphocytes (%) (Auto) 13 , Monocytes (%) (Auto) 10, Eosinophils (%) (Auto) 5, Basophils (%) (Auto) 0, Neutrophils # (Auto) 4.9, Lymphocytes # (Auto) 0.8L, Monocytes # (Auto) 0.7, Eosinophils # (Auto) 0.3, Basophils # (Auto) 0.0, Sodium Level 140, Potassium Level 3.6, Chloride Level 102, Carbon Dioxide Level 25, Anion Gap 13, Blood Urea Nitrogen 16, Creatinine 0.90, Estimat Glomerular Filtration Rate > 60, BUN/ Creatinine Ratio 18, Glucose Level 195H, Calcium Level 9.7, Phosphorus Level 2.7 , Magnesium Level 2.1 08/31/18 11:17: Glucometer 206H Microbiology 08/27/18 Blood Culture - Preliminary, Resulted No growth 08/27/18 Urine Culture - Final, Complete NO GROWTH Laboratory Tests 08/30/18 04:35 08/31/18 04:40 A/P: Assessment: Acute on chronic respiratory failure - management per Pulmonary and Medical services Echocardiogram of 08-29-[address] Nicole showed LVEF 70-75%. Concentric hypertrophy. PASP 40 mmHg. Chronic CHUNG and sleep apnea, related to obesity-hypoventilation syndrome No evidence of myocardial ischemia or infarction, LVEF 72% on MPI of July 2017 Hypertension Hypertriglyceridemia Obesity with BMI approx 51 H/o isolated PVCs Mild enlargement of LA and aortic root on echo ot 2009 Normal cors and normal cardiac hemodynamics reported on cardiac cath of July [address] Nisa ALVAREZ DM II H/o depression, currently controlled Chronic variable leg swelling and stasis dermatitis and venous leg ulcers, likely related to venous insuff CKD stage 3 - 4, likely due to diabetic nephropathy - follows with Dr. Mina Lassiter of nephrology services Not suitable of SOFIA-inhib or ARB due a h/o hyperkalemia on those agents Minimal bilat carotid arterial disease per u/s of July 2017 Plan: Continue current medication regimen Cardiac status clinically stable from cardiac stand point Physician Assessment Physician Assessment No cp or palp or syncope. Exertional shortness of breath at usual baseline Gen weakness and malaise, chronic Lungs: fair to good air entry Cor: reg Ext: mod, bilat leg edema, chronic; chronic, bluish-red discoloration of the skin of the legs A&R * As documented in our note above that I updated (italics) and as noted below * We reviewed risk factor mod * Outpt f/u advised SAM MOBLEY August 31, 2018 09:01 FLORIN GREENBERG MD FACP [facility] CCDS August 31, 2018 11:25
[2018-08-31] MEDS: LIDOCAINE 4% (SALONPAS) PATCH TOP SCH (09:15)
[2018-08-31] MEDS: PREGABALIN 100 MG (LYRICA) CAPSULE PO SCH ×2 (09:15→13:47)
[2018-08-31] MEDS ORDERED: CEFEPIME 2 GM (MAXIPIME) VIAL ONE (09:18)
[2018-08-31] MEDS ORDERED: WATER (STERILE) FOR INJECTION 20 ML ONE (09:19)
[2018-08-31] MEDS: meTOprolol TARTRATE 50 MG (LOPRESSOR) TAB PO SCH (09:29)
[2018-08-31] MEDS: ACETAMINOPHEN 325 MG TABLET PO PRN (09:33)
[2018-08-31] MEDS: CEFEPIME 2,000 MG/SWFI 20 ML IV PUSH IV SCH ×2 (09:34)
--- NOTE | 2018-08-31 10:18 | Wound Care Assessment ---
Wound Care Assessment Date Seen by Provider: August 31, 2018 Time Seen by Provider: 10:00 Chief Complaint R great toe and bilateral calf ulcers. HPI the patient is a 62 year old male known to me from out-patient care. His wounds are stable to improved. Past Medical History: Admits Diabetes Type II Smoking Status: Former Smoker Recreational Drug Use: No Alcohol Use: Denies Use Review of Systems Pulmonary: Dyspnea, Cough Cardiovascular: Edema Neurological: Weakness Exam Vital Signs Date Time Temp Pulse Resp B/P (MAP) Pulse Ox O2 Delivery O2 Flow Rate FiO2 08/31/18 08:00 97.8 96 18 179/101 (127) 95 Nasal Cannula 4.00 08/28/18 16:00 30 Capillary Refill : Less Than 3 Seconds General Appearance: mild distress Gastrointestinal: other (Large girth.) Skin: other (Stable ulcerations of R great toe, bilateral calves.) Results Laboratory Tests 08/30/18 11:41: Glucometer 201H 08/30/18 15:35: Glucometer 145H 08/30/18 20:36: Glucometer 206H 08/31/18 04:40: White Blood Count 6.7, Red Blood Count 4.73, Hemoglobin 13.0L, Hematocrit 41, Mean Corpuscular Volume 86, Mean Corpuscular Hemoglobin 28, Mean Corpuscular Hemoglobin Concent 32, Red Cell Distribution Width 18.2H, Platelet Count 147, Mean Platelet Volume 10.4, Neutrophils (%) (Auto) 72, Lymphocytes (%) (Auto) 13, Monocytes (%) (Auto) 10, Eosinophils (%) (Auto) 5, Basophils (%) (Auto) 0, Neutrophils # (Auto) 4.9, Lymphocytes # (Auto) 0.8L, Monocytes # (Auto) 0.7, Eosinophils # (Auto) 0.3, Basophils # (Auto) 0.0, Sodium Level 140, Potassium Level 3.6, Chloride Level 102, Carbon Dioxide Level 25, Anion Gap 13, Blood Urea Nitrogen 16, Creatinine 0.90, Estimat Glomerular Filtration Rate > 60, BUN/Creatinine Ratio 18, Glucose Level 195H, Calcium Level 9.7, Phosphorus Level 2.7, Magnesium Level 2.1 Microbiology 08/27/18 Blood Culture - Preliminary, Resulted No growth 08/27/18 Urine Culture - Final, Complete NO GROWTH Assessment/Plan/Dx 1. Diabetic foot ulcer, R great toe, Shane Grade 2, stable with current dressings. 2. Bilateral calf ulcerations, lymphedema/venous insufficiency, actually improved from last out-patient visit. Plan: continue present dressings. ALFONSO ESTRADA MD August 31, 2018 10:18
--- NOTE | 2018-08-31 10:56 | Physical Therapy Progress Note ---
Therapy Progress Note x 6 attempts to see pt for PT session today. Unable due to pt on phone making arrangements for discharge, 3 doctor visits, with respiratory, eating breakfast. Final attempt #7, pt declined stating he is going home as soon as his people get here with his clothes and nurses get discharge paperwork done. States Dr is setting it up so that he will be getting Physical Therapy along with his wound care/leg wrapping BELL PADRON LEATHER CRAFTER August 31, 2018 10:56
--- NOTE | 2018-08-31 11:38 | Discharge Summary ---
Diagnosis/Chief Complaint Date of Admission August 27, 2018 at 15:45 Date of Discharge Discharge Diagnosis Problems/Diagnosis: (1) Acute and chronic respiratory failure with hypoxia Assessment & Plan: 08/30: Dr Perez following patient Status: Acute (2) COPD with acute exacerbation Assessment & Plan: - Steroids/Antibiotics, will titrate as tolerated, PT/OT Status: Acute (3) VENKATA on CPAP Status: Chronic (4) Type II diabetes mellitus with complication Assessment & Plan: - blood sugars AC/HS Status: Chronic (5) Morbid obesity with BMI of 50.0-59.9, adult Status: Chronic (6) DVT prophylaxis Assessment & Plan: - Lovenox Status: Acute Discharge Summary-Simple/Stand Consultations Discharge Physical Examination Allergies: Coded Allergies: Sulfa (Sulfonamide Antibiotics) (Unverified Allergy, Unknown, 03/21/14) latex (Unverified Allergy, Unknown, 03/21/14) raspberry (Unverified Allergy, Unknown, 03/21/14) zinc oxide (Unverified Allergy, Unknown, 03/21/14) Uncoded Allergies: ARTIFICIAL SWEETNERS (Allergy, Unknown, 03/21/14) Vitals & I&Os Vital Sign - Last 12Hours Date Time Temp Pulse Resp B/P (MAP) Pulse Ox O2 Delivery O2 Flow Rate FiO2 08/31/18 10:32 96 Nasal Cannula 3.00 08/31/18 08:00 97.8 96 18 179/101 (127) 08/28/18 16:00 30 Intake and Output 08/31/18 00:00 Intake Total 810 ml Output Total 350 ml Balance 460 ml Hospital Course See final discharge diagnosis. Discharge Instructions to patient/family Please see electronic discharge instructions given to patient. Discharge Medications Reviewed and agree with Discharge Medication list on patient's Discharge Instruction sheet Clinical Quality Measures DVT/VTE Risk/Contraindication: Risk Factor Score Per Nursin RFS Level Per Nursing on Admit: 4+=Very High WESLY SEO MD August 31, 2018 11:38
[2018-08-31] MEDS ORDERED: AZIT250T12 PO (11:42)
--- NOTE | 2018-08-31 11:44 | Discharge Instructions ---
Discharge [facility] Discharge Medications New, Converted or Re-Newed RX: Transmitted to Pharmacy New Medications: Azithromycin (Azithromycin) 250 Mg Tablet 500 MG PO DAILY@1700, #5 TAB Continued Medications: Acetaminophen (Acetaminophen Extra Strength) 500 Mg Tablet 1000 MG PO TID, TAB TAKES 2 (500MG) TABLETS Aspirin (Aspirin EC) 325 Mg Tablet.dr 325 MG PO DAILY, TAB Atorvastatin Calcium (Atorvastatin Calcium) 40 Mg Tablet 40 MG PO HS, TAB B Complex with Vitamin C (Super B Complex-Vitamin C) 1 Each Tablet 1 TAB PO DAILY, TAB Budesonide/Formoterol Fumarate (Symbicort 160-4.5 Mcg Inhaler) 10.2 Gm Hfa.aer.ad 2 PUFF INH BID, INHALER Doxepin HCl (Doxepin HCl) 100 Mg Capsule 200 MG PO HS, CAP TAKES 2 (100MG) CAPSULES Duloxetine HCl (Duloxetine HCl) 60 Mg Capsule.dr 60 MG PO DAILY, CAP Finasteride (Finasteride) 5 Mg Tablet 5 MG PO DAILY, TAB Furosemide (Furosemide) 20 Mg Tablet 40 MG PO DAILY, TAB TAKES 2 (20MG) TABLETS Furosemide (Furosemide) 20 Mg Tablet 20 MG PO 1800, TAB Glipizide (Glipizide) 10 Mg Tablet 20 MG PO BID, TAB TAKES 2 (10MG) TABLETS Insulin Glargine,Hum.rec.anlog (Basaglar Kwikpen U-100) 100 Unit/1 Ml Insuln.pen 80 UNITS SC HS, EA Lidocaine (Lidocaine) 1 Each Adh..patch 2-3 PATCH TOP DAILY PRN for PAIN-MODERATE, EA Metoprolol Tartrate (Metoprolol Tartrate) 100 Mg Tablet 100 MG PO BID, TAB Polyethylene Glycol 3350 (Miralax) 17 Gm Powd.pack 17 GM PO MoWeFr, EACH Pregabalin (Lyrica) 200 Mg Capsule 200 MG PO TID, CAP Tizanidine HCl (Tizanidine HCl) 4 Mg Tablet 6 MG PO TID, TAB TAKES 1 & 1/2 (4MG) TABLET Discontinued Medications: Diphenhydramine HCl (Benadryl) 25 Mg Capsule 25 MG PO HS, CAP Hydrochlorothiazide (Hydrochlorothiazide) 25 Mg Tablet 25 MG PO DAILY, TAB [place]-3S/Dha/Epa/Fish Oil/D3 (Fish Oil + D3 Softgel) 1 Each Capsule 1 CAP PO BID, CAP Patient Instructions Goal/Follow Up Appt: f/u with Willy next week Activity & Diet Discharge Diet: ADA Diet, Cardiac Diet Activity as Tolerated: Yes Copy Copies To 1: WESLY SEO MD, HOLLY R MD August 31, 2018 11:44
--- NOTE | 2018-08-31 11:47 | D/C HH Face to Face Order ---
D/C Face to Face Orders Instructions for Patient Via [facility], Patient Instructions/FollowUp: - Pulm Rehab will call to get you rescheduled - F.u with Dr Aguilera in 1 week Physician to follow Patient: Willy Discharge Diet for Home: ADA Diet, Cardiac Diet Patient Problems: COPD Exacerbation Acute on Chronic Respiratory Failure VENKATA Morbid Obesity LE edema with wounds Goals for Patient: - Strengthening - Weight loss - Wound healing Patient Data-Allergies,Ht & Wt Patient Allergies: Coded Allergies: Sulfa (Sulfonamide Antibiotics) (Unverified Allergy, Unknown, 03/21/14) latex (Unverified Allergy, Unknown, 03/21/14) raspberry (Unverified Allergy, Unknown, 03/21/14) zinc oxide (Unverified Allergy, Unknown, 03/21/14) Uncoded Allergies: ARTIFICIAL SWEETNERS (Allergy, Unknown, 03/21/14) Height (Feet): 5 Height (Inches): 10.00 Weight (Pounds): 406 Weight (Ounces): 6.0 Home Health Need/Face to Face Date of Face to Face: August 31, 2018 Clinical Findings: Generalized weakness and fatigue, Instability, Pain with ambulation, Shortness of breath, Unsteady gait, Wound infection I have seen Pt [id number]: Yes Discharged To: Home Diagnosis/Conditions: See Above Patient is Homebound due to: Miguel fall risk due to instabilty, Shortness of breath/distress Homebound Status Due to the above stated illness, injury or surgical procedure (medical condition or diagnosis) and associated clinical findings, the patient is homebound because of his/her inability to leave home except with aid of a supportive device and/or person AND leaving the home requires a considerable and taxing effort or is medically contraindicated. Pt req the following assistanc: Aid of another person, [facility] Nursing Orders Home Health Services Order: Nursing Services, Freight Caller-Evaluate & Treat, Physical Therapy-Evaluate & Treat, Wound Care-Eval/Treat Home Health Infusion Therapy Line Start Date: August 27, 2018 Certify Stmt I certify that this patient is under my care and that I, a nurse practitioner or a physician; a phlebotomy lab assistant working with me, had a face to face encounter that - meets the physician face to face encounter requirements with this patient as dated. WESLY SEO MD August 31, 2018 11:47
[2018-08-31 12:00] VITALS: BP 167/88
--- NOTE | 2018-08-31 13:41 | NUR ---
CM/SS. Patient discharged home. HHC: Resumed with established agency, [facility], RN and PT/OT. Patient coordinated his transportation home.
[2018-08-31 14:26] VITALS: BP 167/88
== END 2018-08-31 14:20 | disposition home health service (06) | DRG 871 ==
LOC: EDUNIT# 13:33 → ER 13:34 → ICU 15:45 → 4TH 08-29 08:30
PROVIDERS: ADMIT Internal Medicine; ATTEND Internal Medicine
DX: A40.1 Sepsis due to streptococcus, group B (principal); R65.20 Severe sepsis without septic shock; J18.9 Pneumonia, unspecified organism; J44.0 Chronic obstructive pulmonary disease with (acute) lower respiratory infection; J44.1 Chronic obstructive pulmonary disease with (acute) exacerbation; J96.21 Acute and chronic respiratory failure with hypoxia; J96.22 Acute and chronic respiratory failure with hypercapnia; M62.82 Rhabdomyolysis; E66.2 Morbid (severe) obesity with alveolar hypoventilation; Z68.43 Body mass index [BMI] 50.0-59.9, adult; E87.2 Acidosis; E11.621 Type 2 diabetes mellitus with foot ulcer; L97.518 Non-pressure chronic ulcer of other part of right foot with other specified severity; L97.229 Non-pressure chronic ulcer of left calf with unspecified severity; L97.219 Non-pressure chronic ulcer of right calf with unspecified severity; I11.9 Hypertensive heart disease without heart failure; E11.649 Type 2 diabetes mellitus with hypoglycemia without coma; E11.21 Type 2 diabetes mellitus with diabetic nephropathy; E11.40 Type 2 diabetes mellitus with diabetic neuropathy, unspecified; E78.00 Pure hypercholesterolemia, unspecified; E78.1 Pure hyperglyceridemia; E87.6 Hypokalemia; E83.42 Hypomagnesemia; I87.8 Other specified disorders of veins; M79.7 Fibromyalgia; M19.91 Primary osteoarthritis, unspecified site; I89.0 Lymphedema, not elsewhere classified; Z91.81 History of falling; Z87.891 Personal history of nicotine dependence; Z79.4 Long term (current) use of insulin
CPT/HCPCS: 36415; 51702; 71045; 80048; 80053; 81000; 82550; 82805; 82962; 83605; 83735; 83880; 84100; 84484; 85007; 85025; 85027; 85610; 85730; 87040; 87077; 87088; 93005; 93306; 94640; 94660; 94664; 94760; 96361; 96365; 96367; 96375; 99291

== ENCOUNTER → 2018-09-01 | Outpatient (CLI) | payer MEDICAID ==
[~2018-09-01] MED LIST changes: +AZIT250T12 PO; +DIPH25CA79 PO; +POLY17PO6 PO
== END ==
LOC: WOUNDCARE 13:47
PROVIDERS: ATTEND Surgery
DX: E11.621 Type 2 diabetes mellitus with foot ulcer (principal); L97.512 Non-pressure chronic ulcer of other part of right foot with fat layer exposed; I87.333 Chronic venous hypertension (idiopathic) with ulcer and inflammation of bilateral lower extremity; L97.222 Non-pressure chronic ulcer of left calf with fat layer exposed; L97.211 Non-pressure chronic ulcer of right calf limited to breakdown of skin; E11.42 Type 2 diabetes mellitus with diabetic polyneuropathy; I89.0 Lymphedema, not elsewhere classified; E66.01 Morbid (severe) obesity due to excess calories; Z68.43 Body mass index [BMI] 50.0-59.9, adult
CPT/HCPCS: 11042

== ENCOUNTER 2018-09-10 13:30 | Inpatient (IN) | payer MEDICAID ==
[2018-09-10] VITALS (15 sets, daily range): BP systolic 131–170; BP diastolic 98–120
[~2018-09-10] VITALS: Ht 177.8 cm; Wt 204.4 kg
[2018-09-10] MEDS ORDERED: RT-IPRATROPIUM (ATROVENT) 0.5MG/2.5ML AMP IH ONE (13:42)
[2018-09-10] MEDS ORDERED: RT-ALBUTEROL SULF 2.5 MG/3 ML PRE-MIX VIAL ONE (13:42)
[2018-09-10] MEDS ORDERED: RT-ALBUTEROL SULF 2.5 MG/3 ML PRE-MIX VIAL INH STA (13:43)
[2018-09-10] MEDS ORDERED: RT-ALBUTEROL/IPRATROPIUM 3 ML (DUONEB) VIAL INH ONE (13:45)
[2018-09-10] MEDS ORDERED: methylPREDNISolone 125 MG (Solu-MEDROL) VIAL IVP ONE (13:45)
[2018-09-10 13:55] LABS: BASOPHILS % (AUTO) 0 % (0-10); EOSINOPHILS # (AUTO) 0.1 10^3/uL (0.0-0.3); EOSINOPHILS % (AUTO) 1 % (0-10); HEMATOCRIT 44 % (40-54); HEMOGLOBIN 13.9 G/DL (13.3-17.7); LYMPHOCYTES # (AUTO) 0.6 X 10^3 (1.0-4.0); LYMPHOCYTES % (AUTO) 4 % (12-44); MEAN CORPUSCULAR HEMOGLOBIN 28 PG (25-34); MEAN CORPUSCULAR HGB CONC 32 G/DL (32-36); MEAN CORPUSCULAR VOLUME 87 FL (80-99); MEAN PLATELET VOLUME 10.5 FL (7.4-10.4); MONOCYTES # (AUTO) 0.5 X 10^3 (0.0-1.0); MONOCYTES % (AUTO) 3 % (0-12); NEUTROPHILS # (AUTO) 13.5 X 10^3 (1.8-7.8); NEUTROPHILS % (AUTO) 92 % (42-75); PLATELET COUNT 230 10^3/uL (130-400); RED CELL DISTRIBUTION WIDTH 18.9 % (10.0-14.5); WHITE BLOOD COUNT 14.7 10^3/uL (4.3-11.0)
[2018-09-10 14:03] LABS: ABG BASE EXCESS 4.2 MMOL/L (-2.5-2.5); ABG OXYGEN SATURATION 95 % (94-100); ABG PCO2 54 MMHG (35-45); ABG PH 7.36 (7.37-7.43); ABG PO2 87 MMHG (79-93); ABG TCO2 30.8 MMOL/L (21.0-31.0)
[2018-09-10 14:04] LABS: ALLENS TEST YES-POS; INSPIRED O2 12 L; PATIENT TEMP 99.8; VENTILATOR NO
[2018-09-10 14:05] LABS: INR 1.4 (0.8-1.4); PROTHROMBIN TIME PATIENT 17.5 SEC (12.2-14.7)
--- NOTE | 2018-09-10 14:06 | Diagnostic Imaging Report ---
INDICATION: Shortness of air, COPD. COMPARISON: 08/29/2018. FINDINGS: Enlargement of the cardiomediastinal silhouette unchanged from prior. Lower lobe infiltrate on the right not convincingly changed when improved lung expansion is taken into account. Left-sided infiltrate has decreased. No pneumothorax. IMPRESSION: Resolved left-sided infiltrate. Similar infiltrate in the right [id number] lung. Enlargement of the cardiac silhouette unchanged. No adverse development with elevated right diaphragm. Dictated by: Dictated on workstation # [id number]
[2018-09-10 14:11] LABS: ALANINE AMINOTRANSFERASE 20 U/L (0-55); ALBUMIN 3.9 GM/DL (3.2-4.5); ALKALINE PHOSPHATASE 117 U/L (40-136); BILIRUBIN,TOTAL 1.2 MG/DL (0.1-1.0); BUN/CREATININE RATIO 16; CALCIUM 9.5 MG/DL (8.5-10.1); CARBON DIOXIDE 29 MMOL/L (21-32); CHLORIDE 101 MMOL/L (98-107); GFR ESTIMATED > 60; GLUCOSE 101 MG/DL (70-105); POTASSIUM 4.2 MMOL/L (3.6-5.0); SODIUM 140 MMOL/L (135-145); TOTAL PROTEIN 6.9 GM/DL (6.4-8.2)
[2018-09-10 14:17] LABS: ANISOCYTOSIS SLIGHT; BAND NEUTROPHILS 6 %; BASOPHILS % (MANUAL) 1 %; LYMPHOCYTES % (MANUAL) 4 %; MONOCYTES % (MANUAL) 4 %; NEUTROPHILS % (MANUAL) 85 %; POLYCHROMASIA SLIGHT
[2018-09-10 14:23] LABS: BILIRUBIN,URINE NEGATIVE (NEGATIVE); CLARITY,URINE SLIGHTLY CLOUDY; COLOR,URINE YELLOW; GLUCOSE, URINE (UA) 1+ (NEGATIVE); KETONES,URINE NEGATIVE (NEGATIVE); LEUKOCYTE ESTERASE ,URINE NEGATIVE (NEGATIVE); NITRITE,URINE NEGATIVE (NEGATIVE); PH,URINE 5 (5-9); PROTEIN,URINE 2+ (NEGATIVE); UROBILINOGEN,URINE 4 MG/DL (NORMAL)
[2018-09-10 14:30] LABS: BACTERIA,URINE TRACE /HPF; SQUAMOUS EPITHELIAL CELL,UR 0-2 /HPF
[2018-09-10] MEDS ORDERED: PIPERACILLIN/TAZOBACTAM (BULK) 4.5 GM in NS (IVPB) 100 ML IV ONE (14:45)
--- NOTE | 2018-09-10 15:05 | ED Respiratory ---
General Chief Complaint: Respiratory Problems Stated Complaint: COPD Nursing Triage Note: PT ARRIVED PER EMS, PT ON C-PAP AT THIS X. PT IS GASPING FOR AIR, PT FEBRILE AT HOME. PT IS OBESES STATES WT 400#. WAS RELEASED FROM HOSP THIS WEEK, HH RN PRESENT UPON EMS ARRIVAL. PT HAS LEGS WRAPPED BILATERALLY AND STATES GETS TX AT [facility] BY DR MCCAULEY Source: patient, EMS, old records Exam Limitations: no limitations History of Present Illness Date Seen by Provider: September 10, 2018 Time Seen by Provider: 13:40 Initial Comments This 62-year-old gentleman presents to the emergency room with respiratory distress that developed at home today. He has been recently admitted to the hospital for COPD exacerbation. He is requiring high flow oxygen and CPAP on arrival. EMS reports temperature 100.2. No fever was reported at home. Patient has chronic edema and suffers from morbid obesity. He sees Dr. Galvez for wound care and Dr. Perez for pulmonology. Patient has tight wheezing on exam. Nebulizer treatment was administered in route. Allergies and Home Medications Allergies Coded Allergies: Sulfa (Sulfonamide Antibiotics) (Unverified Allergy, Unknown, 03/21/14) latex (Unverified Allergy, Unknown, 03/21/14) raspberry (Unverified Allergy, Unknown, 03/21/14) zinc oxide (Unverified Allergy, Unknown, 03/21/14) Uncoded Allergies: ARTIFICIAL SWEETNERS (Allergy, Unknown, 03/21/14) Home Medications Acetaminophen 500 Mg Tablet, 1,000 MG PO TID, (Reported) TAKES 2 (500MG) TABLETS Aspirin 325 Mg Tablet.dr, 325 MG PO DAILY, (Reported) Atorvastatin Calcium 40 Mg Tablet, 40 MG PO HS, (Reported) B Complex with Vitamin C 1 Each Tablet, 1 TAB PO DAILY, (Reported) Budesonide/Formoterol Fumarate 10.2 Gm Hfa.aer.ad, 2 PUFF INH BID, (Reported) Doxepin HCl 100 Mg Capsule, 200 MG PO HS, (Reported) TAKES 2 (100MG) CAPSULES Duloxetine HCl 60 Mg Capsule.dr, 60 MG PO DAILY, (Reported) Finasteride 5 Mg Tablet, 5 MG PO DAILY, (Reported) Furosemide 20 Mg Tablet, 40 MG PO DAILY, (Reported) TAKES 2 (20MG) TABLETS Furosemide 20 Mg Tablet, 20 MG PO 1800, (Reported) Glipizide 10 Mg Tablet, 20 MG PO BID, (Reported) TAKES 2 (10MG) TABLETS Insulin Glargine,Hum.rec.anlog 100 Unit/1 Ml Insuln.pen, 80 UNITS SC HS, (Reported) Lidocaine 1 Each Adh..patch, 2-3 PATCH TOP DAILY PRN for PAIN-MODERATE, (Reported) Metoprolol Tartrate 100 Mg Tablet, 100 MG PO BID, (Reported) Polyethylene Glycol 3350 17 Gm Powd.pack, 17 GM PO MoWeFr, (Reported) Pregabalin 200 Mg Capsule, 200 MG PO TID, (Reported) Tizanidine HCl 4 Mg Tablet, 4-6 MG PO TID, (Reported) TAKES 1 TO 1 & 1/2 (4MG) TABLETS Patient Home Medication List Home Medication List Reviewed: Yes Review of Systems Review of Systems Constitutional: see HPI EENTM: no symptoms reported Respiratory: see HPI Cardiovascular: see HPI, edema Gastrointestinal: no symptoms reported Genitourinary: no symptoms reported Musculoskeletal: no symptoms reported Skin: see HPI Psychiatric/Neurological: No Symptoms Reported Hematologic/Lymphatic: No Symptoms Reported Immunological/Allergic: no symptoms reported Past Icljtkg-Clujvp-Eqtlxv Hx Past Med/Social Hx: Reviewed Nursing Past Med/Soc Hx Patient Social History Alcohol Use: Denies Use Recreational Drug Use: No Smoking Status: Former Smoker Type Used: Cigars, Cigarettes 2nd Hand Smoke Exposure: No Recent Foreign Travel: No Contact w/Someone Who Travel: No Recent Infectious Disease Expo: No Recent Hopitalizations: Yes (RELEASED ON THURSDAY) Physical Abuse: No Sexual Abuse: No Immunizations Up To Date Tetanus Booster (TDap): Unknown Date of Pneumonia Vaccine: Apr 20, 2016 Date of Influenza Vaccine: Jan 18, 2018 Seasonal Allergies Seasonal Allergies: No Past Medical History Surgeries: No Respiratory: Yes Sleep Apnea, COPD Currently Using CPAP: No Currently Using BIPAP: Yes Cardiac: Yes High Cholesterol, Hypertension Neurological: Yes Neuropathy Genitourinary: No Gastrointestinal: No Musculoskeletal: Yes (CHRONIC GENERALIZED PAIN ) Arthritis, Fibromyalgia Endocrine: Yes (MORBID OBESITY) Diabetes, Insulin dep HEENT: No Cancer: No Psychosocial: No Integumentary: Yes (CHRONIC LEG WOUNDS) Blood Disorders: No Family Medical History Reviewed Nursing Family Hx Heart Disease, Cancer, CAD Over 55 Years Old, Diabetes, Hypertension, Stroke, Vascular Disease Physical Exam Vital Signs - First Documented 09/10/18 13:57 FiO2 40 Capillary Refill : Less Than 3 Seconds Height: 5'10.00" Weight: 400lbs. 6.0oz. 181.235281ms; 56.3 BMI Method:Stated General Appearance: WD/WN, moderate distress, obese HEENT: PERRL/EOMI, normal ENT inspection Neck: normal inspection Respiratory: respiratory distress, decreased breath sounds, wheezing Cardiovascular: regular rate, rhythm, no murmur, other (firm lower extremity edema) Gastrointestinal: distended (markedly obese), tenderness Extremities: other (woody edema of the lower extremities bilaterally with numerous dressed skin sores) Neurologic/Psychiatric: microsoft developer II-XII nml as tested, no motor/sensory deficits, alert, normal mood/affect, oriented x 3 Skin: normal color, warm/dry, other (see above) Focused Exam Lactate Level 09/10/18 13:40: Lactic Acid Level 1.53 Lactic Acid Level Laboratory Tests Test 09/10/18 13:40 Lactic Acid Level 1.53 MMOL/L (0.50-2.00) Progress/Results/Core Measures Suspected Sepsis Recent Fever Within 48 Hours: Yes Infection Criteria Present: Documented Infection New/Unexplained Altered Menta: No Sepsis Screen: Possible Sepsis Risk SIRS Temperature:98.8 Pulse: 94 Respiratory Rate: 24 Laboratory Tests 09/10/18 13:40: White Blood Count 14.7H Blood Pressure 168 /120 Mean: 124 09/10/18 13:40: Lactic Acid Level 1.53 Laboratory Tests 09/10/18 13:40: Creatinine 1.10, INR Comment 1.4, Platelet Count 230, Total Bilirubin 1.2H Results/Orders Lab Results Laboratory Tests Test 09/10/18 13:40 09/10/18 13:58 09/10/18 14:15 Range/Units White Blood Count 14.7 H 4.3-11.0 10^3/uL Red Blood Count 5.05 4.35-5.85 10^6/uL Hemoglobin 13.9 13.3-17.7 G/DL Hematocrit 44 40-54 % Mean Corpuscular Volume 87 80-99 FL Mean Corpuscular Hemoglobin 28 25-34 PG Mean Corpuscular Hemoglobin Concent 32 32-36 G/DL Red Cell Distribution Width 18.9 H 10.0-14.5 % Platelet Count 230 130-400 10^3/uL Mean Platelet Volume 10.5 H 7.4-10.4 FL Neutrophils (%) (Auto) 92 H 42-75 % Lymphocytes (%) (Auto) 4 L 12-44 % Monocytes (%) (Auto) 3 0-12 % Eosinophils (%) (Auto) 1 0-10 % Basophils (%) (Auto) 0 0-10 % Neutrophils # (Auto) 13.5 H 1.8-7.8 X 10^3 Lymphocytes # (Auto) 0.6 L 1.0-4.0 X 10^3 Monocytes # (Auto) 0.5 0.0-1.0 X 10^3 Eosinophils # (Auto) 0.1 0.0-0.3 10^3/uL Basophils # (Auto) 0.0 0.0-0.1 10^3/uL Neutrophils % (Manual) 85 % Lymphocytes % (Manual) 4 % Monocytes % (Manual) 4 % Basophils % (Manual) 1 % Band Neutrophils 6 % Dohle Bodies SLIGHT Polychromasia SLIGHT Anisocytosis SLIGHT Prothrombin Time 17.5 H 12.2-14.7 SEC INR Comment 1.4 0.8-1.4 Activated Partial Thromboplast Time 29 24-35 SEC Sodium Level 140 135-145 MMOL/L Potassium Level 4.2 3.6-5.0 MMOL/L Chloride Level 101 98-107 MMOL/L Carbon Dioxide Level 29 21-32 MMOL/L Anion Gap 10 5-14 MMOL/L Blood Urea Nitrogen 18 7-18 MG/DL Creatinine 1.10 0.60-1.30 MG/DL Estimat Glomerular Filtration Rate > 60 BUN/Creatinine Ratio 16 Glucose Level 101 70-105 MG/DL Lactic Acid Level 1.53 0.50-2.00 MMOL/L Calcium Level 9.5 8.5-10.1 MG/DL Corrected Calcium 9.6 8.5-10.1 MG/DL Total Bilirubin 1.2 H 0.1-1.0 MG/DL Aspartate Amino Transf (AST/SGOT) 24 5-34 U/L Alanine Aminotransferase (ALT/SGPT) 20 0-55 U/L Alkaline Phosphatase 117 40-136 U/L C-Reactive Protein High Sensitivity 1.79 H 0.00-0.50 MG/DL B-Type Natriuretic Peptide 211.4 H <100.0 PG/ML Total Protein 6.9 6.4-8.2 GM/DL Albumin 3.9 3.2-4.5 GM/DL Blood Gas Puncture Site LT RAD Blood Gas Patient Temperature 99.8 Arterial Blood pH 7.36 L 7.37-7.43 Arterial Blood Partial Pressure CO2 54 H 35-45 MMHG Arterial Blood Partial Pressure O2 87 79-93 MMHG Arterial Blood HCO3 29 H 23-27 MMOL/L Arterial Blood Total CO2 30.8 21.0-31.0 MMOL/L Arterial Blood Oxygen Saturation 95 94-100 % Arterial Blood Base Excess 4.2 H -2.5-2.5 MMOL/L Vitaly Test YES-POS Blood Gas Ventilator Setting NO Blood Gas Inspired Oxygen 12 L Urine Color YELLOW Urine Clarity SLIGHTLY CLOUDY Urine pH 5 5-9 Urine Specific [place] 1.025 H 1.016-1.022 Urine Protein 2+ H NEGATIVE Urine Glucose (UA) 1+ H NEGATIVE Urine Ketones NEGATIVE NEGATIVE Urine Nitrite NEGATIVE NEGATIVE Urine Bilirubin NEGATIVE NEGATIVE Urine Urobilinogen 4 H NORMAL MG/DL Urine Leukocyte Esterase NEGATIVE NEGATIVE Urine RBC (Auto) NEGATIVE NEGATIVE Urine RBC 2-5 H /HPF Urine WBC NONE /HPF Urine Squamous Epithelial Cells 0-2 /HPF Urine Crystals NONE /LPF Urine Bacteria TRACE /HPF Urine Casts NONE /LPF Urine Mucus NEGATIVE /LPF Urine Culture Indicated CULTURE PENDING Micro Results Microbiology 09/10/18 Blood Culture - Preliminary, Resulted Group B Streptococci 09/10/18 Blood Culture - Preliminary, Resulted Group B Streptococci 09/10/18 Influenza Types A,B Antigen (EDUARD) - Final, Complete 09/10/18 Urine Culture - Final, Complete NO GROWTH My Orders Orders - MEMO BUTTERFIELD MD Cbc With Automated Diff (09/10/18 13:43) Comprehensive Metabolic Panel (09/10/18 13:43) Blood Culture (09/10/18 13:43) Sputum Culture (09/10/18 13:43) Urinalysis (09/10/18 13:43) Urine Culture (09/10/18 13:43) Protime With Inr (09/10/18 13:43) Partial Thromboplastin Time (09/10/18 13:43) Chest 1 View, Ap/Pa Only (09/10/18 13:43) Ed Iv/Invasive Line Start (09/10/18 13:43) Ed Iv/Invasive Line Start (09/10/18 13:43) Vital Signs Adult Sepsis Patie Q15M (09/10/18 13:43) O2 (09/10/18 13:43) Remove Rings In Anticipation O (09/10/18 13:43) Lactic Acid Analyzer (09/10/18 13:43) Albuterol Pre-Mix Nebs (Rt) (Proventil (09/10/18 13:43) Albuterol/Ipra Inhalation Soln (Duoneb I (09/10/18 13:45) Svn Small Volume Nebulizer (09/10/18 13:43) Svn Small Volume Nebulizer (09/10/18 13:43) Methylprednisolone Sod Succ (Solu-Medrol (09/10/18 13:45) BNP (09/10/18 13:43) Hs C Reactive Protein (09/10/18 13:43) Arterial Blood Gas (09/10/18 13:44) Ipratropium 0.02% Neb Solution (Atrovent (09/10/18 13:42) Albuterol Pre-Mix Nebs (Rt) (Proventil (09/10/18 13:42) Influenza A And B Antigens (09/10/18 13:50) Manual Differential (09/10/18 13:40) Piperacillin/Tazobactam (Bulk) (Zosyn In (09/10/18 14:45) Medications Given in ED Vital Signs/I&O 09/10/18 09/10/18 09/10/18 09/10/18 13:30 13:30 13:53 13:57 Temp 98.8 Pulse 96 94 Resp 36 24 B/P (MAP) 160/106 (124) Pulse Ox 94 94 93 97 O2 Delivery OxyMask OxyMask NIV Bilevel O2 Flow Rate 10.00 10.00 40.00 FiO2 40 Capillary Refill : Less Than 3 Seconds Blood Pressure Mean: 124 Progress Note : Time: 15:05 Progress Note Patient was seen and examined upon arrival. Septic workup was pursued as EMS reported temperature 100.2. No fever was recorded at home or in the ER. Sepsis was felt unlikely as patient's CRP was very low. He did have a leukocytosis but he had steroids previously for COPD. Antibiotics were started empirically as a precaution after blood cultures were drawn. The first dose of Zosyn was administered in the ER. Patient was immediately placed on BiPAP and given Solu- Medrol. An hour-long nebulizer treatment was administered. He had good improvement in his respiratory status and was much more comfortable on BiPAP. A repeat ABG is pending to help monitor progress. Dr. Perez and Dr. Galvez have been consulted. Patient will remain on BiPAP and be admitted to the ICU. Dr. Perez presented to the emergency room to personally assessed the patient. Diagnostic Imaging Diagonstic Imaging: Xray Plain Films/CT/US/NM/MRI: chest Comments Chest x-ray viewed by me and report reviewed. See report below: NAME: KEISHA BECERRIL [facility] REC#: [id number] PT STATUS: ADM IN : 1955 PHYSICIAN: MEMO BUTTERFIELD MD ADMIT DATE: 09/10/18/ICU Signed Date of Exam: 09/10/18 CHEST 1 VIEW, AP/PA ONLY INDICATION: Shortness of air, COPD. COMPARISON: 08/29/2018. FINDINGS: Enlargement of the cardiomediastinal silhouette unchanged from prior. Lower lobe infiltrate on the right not convincingly changed when improved lung expansion is taken into account. Left-sided infiltrate has decreased. No pneumothorax. IMPRESSION: Resolved left-sided infiltrate. Similar infiltrate in the right hjm-za-[id number] lung. Enlargement of the cardiac silhouette unchanged. No adverse development with elevated right diaphragm. Dictated by: Dictated on workstation # [id number] Dict: 09/10/18 1400 Trans: 09/10/18 1621 Interpreted by: DARYL ROYAL Electronically signed by: DARYL ROYAL 09/10/18 1621 Departure Communication (Admissions) Time/Spoke to Admitting Phy: 14:55 Dr. Juan Perez at 14:50 Dr. Galvez at 14:58 Impression Primary Impression: Acute and chronic respiratory failure with hypoxia Additional Impressions: Leukocytosis Qualified Codes: D72.829 - Elevated white blood cell count, unspecified Morbid obesity Disposition: ADMITTED INPATIENT Condition: Improved Admissions Decision to Admit Reason: Admit from ER (General) Decision to Admit/Date: September 10, 2018 Time/Decision to Admit Time: 13:45 Departure-Patient Inst. Referrals: ÁNGEL SPIVEY MD (PCP) Primary Care Physician KATHYA FISCHER (Family) Primary Care Physician MEMO BUTTERFIELD MD September 10, 2018 15:05
[2018-09-10 15:19] LABS: ABG BASE EXCESS 4.9 MMOL/L (-2.5-2.5); ABG OXYGEN SATURATION 93 % (94-100); ABG PCO2 47 MMHG (35-45); ABG PH 7.41 (7.37-7.43); ABG PO2 72 MMHG (79-93); ABG TCO2 30.8 MMOL/L (21.0-31.0)
[2018-09-10 15:21] LABS: ALLENS TEST YES-POS; INSPIRED O2 15/8 40%; PATIENT TEMP 98.3; VENTILATOR NO
--- OUTSIDE RECORDS SUMMARY | 2018-09-10 15:29 | XMS REPORT ---
Author Author KATHYA FISCHER [facility] Address [address] [place] [address] Care Team Providers Care Molding Technician Name Role Phone KATHYA FISCHER Unavailable PROBLEMS Type Condition ICD9-CM Code BGZ39-TV Code Onset Dates Condition Status SNOMED Code Problem Obstructive sleep apnea G47.33 Active 78877671 Problem Stress incontinence of urine N39.3 Active 87784109 Problem Uncontrolled type 2 diabetes mellitus without complication, without long- term current use of insulin E11.65 Active 521958524 Problem Hypertension, benign I10 Active 13355890 Problem Fibromyalgia M79.7 Active 273163204 Problem Arthritis M19.90 Active 7156665 Problem 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 Active 22383161 Problem Polyneuropathy G62.9 Active 13737153 Problem prison current use of insulin Z79.4 Active 901762182 Problem Type 2 diabetes mellitus with hyperglycemia E11.65 Active 652948364 Problem Constipation K59.00 Active 62119736 Problem Non-pressure chronic ulcer of unspecified part of right lower leg with unspecified severity L97.919 Active 474231255 Problem Neuropathy G62.9 Active 109828766 Problem 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 Active 533918403 Problem Controlled type 2 diabetes mellitus without complication, without long- term current use of insulin E11.9 Active 005623777 Problem Other male erectile dysfunction N52.8 Active 209299859 Problem Uncontrolled type 2 diabetes mellitus with hyperglycemia E11.65 Active 025398693 Problem Diabetic polyneuropathy associated with type 2 diabetes mellitus E11.42 Active 97992812 Problem BMI 50.0-59.9, adult Z68.43 Active 776195300 ALLERGIES Substance Reaction Event Type Date Status Androgel Unknown Drug Allergy Jun, Active chromates Unknown Non Drug Allergy Jun, Active Cyclobenzaprine Hcl Oral Tablet 10 10 Mg Tablet dc'd potential for ss Non Drug Allergy Jun, Active latex rash Non Drug Allergy Jun, Active raspberry Unknown Non Drug Allergy Jun, Active equal Unknown Non Drug Allergy Jun, Active sweet and low Unknown Non Drug Allergy Jun, Active horseradish Unknown Non Drug Allergy Jun, Active Diclofenac tongue swelling Drug Allergy Jun, Active Wool itching Non Drug Allergy Jun, Active SulfADIAZINE Unknown Drug Allergy Jun, Active rhubarb Unknown Non Drug Allergy Jun, Active Zinc Unknown Drug Allergy Jun, Active Lasix Unknown Drug Allergy Jun, Active Nabumetone Unknown Drug Allergy Jun, Active Cozaar Unknown Drug Allergy Jun, Active Ibuprofen Unknown Drug Allergy Jun, Active ENCOUNTERS Encounter Location Date Diagnosis [facility] [id number] [place] [address] August, [facility] [id number] [place] [address] Jul, [facility] [id number] [place] [address] Jul, [facility] [id number] [place] [address] Jul, [facility] [id number] [place] [address] Jul, [facility] [address] [address] Jul, Uncontrolled type 2 diabetes mellitus without complication, without long-term current use of insulin E11.65 and Uncontrolled type 2 diabetes mellitus with hyperglycemia E11.65 [facility] [address] [address] Jul, [facility] [id number] [place] [address] Jul, Uncontrolled type 2 diabetes mellitus without complication, without long-term current use of insulin E11.65 and Hypertension, benign I10 [facility] [address] [address] Jul, [facility] [id number] [address] Jul, [facility] [id number] [place] [address] Jun, Obstructive sleep apnea G47.33 ; Hypertension, benign I10 ; Type 2 diabetes mellitus with hyperglycemia E11.65 ; Morbid obesity E66.01 and Non- pressure chronic ulcer of unspecified part of right lower leg with unspecified severity L97.919 [facility] [id number] [place] [address] Jun, [facility] [id number] [place] [address] Jun, [facility] [id number] [place] [address] Jun, [facility] [id number] [place] [address] Jun, Morbid obesity E66.01 and Uncontrolled type 2 diabetes mellitus with hyperglycemia E11.65 [facility] [id number] [place] [address] Jun, Uncontrolled type 2 diabetes mellitus with hyperglycemia E11.65 [facility] [id number] [place] [address] May, [facility] [id number] [place] [address] May, [facility] [id number] [place] [address] May, [facility] [id number] [place] [address] May, Renal insufficiency N28.9 ; BMI 50.0-59.9, adult Z68.43 and Weight gain, abnormal R63.5 [facility] [id number] [address] May, Renal insufficiency N28.9 ; BMI 50.0-59.9, adult Z68.43 and Weight gain, abnormal R63.5 [facility] [address] [address] Apr, Uncontrolled type 2 diabetes mellitus with hyperglycemia E11.65 and Weight gain, abnormal R63.5 [facility] [address] [place] [address] Apr, [facility] [id number] [place] [address] Apr, [facility] [id number] [place] [address] Apr, Uncontrolled type 2 diabetes mellitus with hyperglycemia E11.65 and Diabetes type 2, controlled E11.9 [facility] [id number] [place] [address] Apr, [facility] [id number] [place] [address] Apr, [facility] [address] [address] Apr, [facility] [address] [address] Mar, Uncontrolled type 2 diabetes mellitus without complication, without long-term current use of insulin E11.65 and BMI 50.0-59.9, adult Z68.43 [facility] [address] [address] Mar, [facility] [address] [address] Mar, [facility] [address] [address] Mar, [facility] [address] [address] Mar, [facility] [address] [address] Mar, Uncontrolled type 2 diabetes mellitus with hyperglycemia E11.65 and Diabetic polyneuropathy associated with type 2 diabetes mellitus E11.42 [facility] [id number] [place] [address] Feb, [facility] [id number] [place] [address] Feb, [facility] [address] [address] Feb, [facility] [id number] [place] [address] Feb, [facility] [id number] [place] [address] Feb, [facility] [id number] [place] [address] Feb, Fibromyalgia M79.7 and Uncontrolled type 2 diabetes mellitus without complication, without long-term current use of insulin E11.65 [facility] [id number] [place] [address] Jan, [facility] [id number] [place] [address] Jan, [facility] [id number] [place] [address] Jan, Uncontrolled type 2 diabetes mellitus without complication, without long-term current use of insulin E11.65 [facility] [id number] [place] [address] Jan, [facility] [id number] [place] [address] Dec, Therapeutic drug monitoring Z51.81 and Controlled type 2 diabetes mellitus without complication, without long-term current use of insulin E11.9 [facility] [id number] [place] [address] Dec, Renal insufficiency N28.9 [facility] [id number] [place] [address] Dec, [facility] [address] [address] Dec, Dizziness R42 [facility] [address] [address] Dec, Dizziness R42 and Encounter for immunization Z23 [facility] [address] [address] Dec, Therapeutic drug monitoring Z51.81 and Controlled type 2 diabetes mellitus without complication, without long-term current use of insulin E11.9 [facility] [address] [address] Dec, [facility] [address] [address] Dec, [facility] [address] [address] Dec, [facility] [address] [address] Nov, [facility] [address] [address] Nov, Therapeutic drug monitoring Z51.81 [facility] [id number] [place] [address] Nov, [facility] [id number] [place] [address] Nov, Therapeutic drug monitoring Z51.81 ; Fibromyalgia M79.7 and Controlled type 2 diabetes mellitus without complication, without long-term current use of insulin E11.9 [facility] [id number] [place] [address] Nov, Type 2 diabetes mellitus with hyperglycemia E11.65 [facility] [id number] [place] [address] Nov, [facility] [address] [address] Nov, [facility] [id number] [place] [address] Nov, Type 2 diabetes mellitus with hyperglycemia E11.65 [facility] [id number] [place] [address] Nov, [facility] [id number] [place] [address] Nov, [facility] [id number] [place] [address] Nov, Constipation K59.00 [facility] [id number] [place] [address] Oct, Diabetes type 2, controlled E11.9 [facility] [id number] [place] [address] Oct, Type 2 diabetes mellitus with hyperglycemia E11.65 ; prison current use of insulin Z79.4 and Neuropathy G62.9 [facility] [id number] [address] Oct, [facility] [id number] [address] Oct, [facility] [id number] [address] Oct, [facility] [id number] [address] Oct, [facility] [id number] [address] Oct, [facility] [id number] [address] Oct, [facility] [id number] [address] Oct, [facility] [id number] [address] Sep, [facility] [id number] [place] [address] Sep, Uncontrolled type 2 diabetes mellitus without complication, without long-term current use of insulin E11.65 [facility] [id number] [place] [address] Sep, Hypertension, benign I10 ; Fibromyalgia M79.7 ; Controlled type 2 diabetes mellitus without complication, without long-term current use of insulin E11.9 and Uncontrolled type 2 diabetes mellitus without complication, without long-term current use of insulin E11.65 [facility] [id number] [place] [address] Sep, [facility] [id number] [address] Sep, Uncontrolled type 2 diabetes mellitus without complication, without long-term current use of insulin E11.65 [facility] [address] [address] Sep, [facility] [id number] [place] [address] Sep, [facility] [address] [address] Sep, Uncontrolled type 2 diabetes mellitus without complication, without long-term current use of insulin E11.65 and Fibromyalgia M79.7 [facility] [address] [address] August, [facility] [address] [address] August, [facility] [id number] [address] August, [facility] [id number] [address] August, Fibromyalgia M79.7 [facility] [id number] [place] [address] Jul, Hypertension, benign I10 [facility] [address] [address] Jul, Fibromyalgia M79.7 [facility] [address] [address] Jul, [facility] [address] [address] Jun, [facility] [address] [address] Jun, Hypertension, benign I10 ; Arthritis M19.90 ; 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 and Uncontrolled type 2 diabetes mellitus without complication, without long-term current use of insulin E11.65 [facility] [address] [address] Jun, Acute nasopharyngitis J00 and BMI 50.0-59.9, adult Z68.43 [facility] [id number] [place] [address] Jun, Fibromyalgia M79.7 [facility] [id number] [place] [address] May, [facility] [id number] [place] [address] May, Fibromyalgia M79.7 [facility] [id number] [place] [address] Apr, Fibromyalgia M79.7 [facility] [address] [address] Apr, [facility] [id number] [place] [address] Apr, [facility] [address] [address] Apr, Arthritis M19.90 [facility] [id number] [place] [address] Apr, Arthritis M19.90 [facility] [id number] [place] [address] Apr, Arthritis M19.90 and Controlled type 2 diabetes mellitus without complication, without long-term current use of insulin E11.9 [facility] [address] [address] Apr, [facility] [address] [address] Apr, Fibromyalgia M79.7 [facility] [address] [address] Mar, [facility] [address] [address] Mar, [facility] [address] [address] Mar, Fibromyalgia M79.7 [facility] [address] [address] Feb, [facility] [id number] [place] [address] Feb, [facility] [address] [address] Feb, [facility] [id number] [place] [address] Feb, Fibromyalgia M79.7 [facility] [address] [address] Feb, Diabetes type 2, uncontrolled E11.65 and Encounter for immunization Z23 [facility] [address] [address] Jan, [facility] [address] [place] [address] Jan, Fibromyalgia M79.7 [facility] [id number] [place] [address] Dec, [facility] [id number] [place] [address] Dec, Fibromyalgia M79.7 [facility] [id number] [place] [address] Nov, [facility] [id number] [place] [address] Nov, [facility] [id number] [place] [address] Nov, 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 and Polyneuropathy G62.9 [facility] [id number] [place] [address] Nov, [facility] [id number] [place] [address] Nov, [facility] [id number] [place] [address] Oct, Diabetes type 2, uncontrolled E11.65 [facility] [address] [address] Oct, Diabetes type 2, uncontrolled E11.65 ; Polyneuropathy G62.9 and Pain in right wrist M25.531 [facility] [id number] [address] Oct, [facility] [id number] [place] [address] Oct, Pain in left shoulder M25.512 [facility] [id number] [place] [address] Sep, [facility] [id number] [place] [address] Sep, Pain in left shoulder M25.512 [facility] [address] [address] Sep, [facility] [id number] [place] [address] August, Pain in left shoulder M25.512 [facility] [id number] [place] [address] Jul, [facility] [id number] [place] [address] Jul, [facility] [id number] [place] [address] Jul, Pain in left shoulder M25.512 [facility] [id number] [place] [address] Jun, [facility] [id number] [place] [address] Jun, [facility] [id number] [place] [address] Jun, Diabetes type 2, uncontrolled E11.65 ; Fibromyalgia M79.7 and Arthritis M19.90 [facility] [id number] [place] [address] Jun, Pain in left shoulder M25.512 [facility] [id number] [place] [address] May, [facility] [id number] [place] [address] May, Diabetes type 2, controlled E11.9 [facility] [id number] [place] [address] 17 May, 2016 [facility] [id number] [place] [address] 15 May, 2016 Uncontrolled type 2 diabetes mellitus without complication, without long-term current use of insulin E11.65 [facility] [address] [facility] [id number] [address] 15 May, 2016 Pain in left shoulder M25.512 [facility] [id number] [place] [address] 03 May, 2016 Diabetes type 2, controlled E11.9 and Uncontrolled type 2 diabetes mellitus without complication, without long-term current use of insulin E11.65 [facility] [address] [facility] [id number] [place] [address] Apr, [facility] [id number] [place] [address] Apr, [facility] [id number] [place] [address] Mar, [facility] [id number] [place] [address] Mar, [facility] [id number] [place] [address] Mar, [facility] [address] [address] Feb, [facility] [address] [id number] Feb, Dental examination Z01.20 [facility] [id number] [address] Jan, [facility] [address] [address] 14 Dec, 2015 [facility] [id number] [address] Dec, [facility] [id number] [address] Dec, [facility] [address] [address] Dec, Diabetes type 2, controlled E11.9 [facility] [address] [id number] [place] [address] Nov, [facility] [address] [id number] [place] [address] Nov, [facility] [address] [id number] [place] [address] Nov, [facility] [address] [id number] [place] [address] Nov, [facility] [address] [id number] [place] [address] Oct, [facility] [address] [id number] [place] [address] Oct, [facility] [address] [facility] [id number] [place] [address] Oct, [facility] [address] [facility] [id number] [place] [address] Sep, [facility] [address] [facility] [id number] [place] [address] Sep, Diabetes type 2, controlled E11.9 [facility] [address] [facility] [id number] [place] [address] Sep, Diabetes type 2, controlled E11.9 [facility] [address] [facility] [id number] [place] [address] August, [facility] [address] [facility] [id number] [place] [address] August, [facility] [address] [facility] [id number] [place] [address] August, Type 2 diabetes mellitus without complication E11.9 and Pain in left shoulder M25.512 [facility] [address] [id number] [place] [address] Jul, [facility] [address] [facility] [id number] [place] [address] Jul, Diabetes type 2, controlled E11.9 and Hypertension, benign I10 [facility] [id number] [place] [address] Jun, [facility] [id number] [place] [address] Jun, [facility] [id number] [place] [address] Jun, Diabetes 250.00 [facility] [address] [address] Jun, [facility] [address] [address] May, Diabetes type 2, uncontrolled E11.65 [facility] [id number] [place] [address] [address] May, [facility] [id number] [place] [address] Apr, Type 2 diabetes mellitus without complication E11.9 [facility] [id number] [place] [address] Apr, Encounter for immunization Z23 [facility] [id number] [place] [address] Apr, [facility] [id number] [place] [address] Mar, [facility] [id number] [place] [address] Mar, [facility] [id number] [place] [address] Mar, [facility] [id number] [place] [address] Feb, [facility] [id number] [place] [address] Jan, [facility] [id number] [address] Jan, [facility] [id number] [place] [address] Jan, [facility] [id number] [address] Dec, Diabetes 250.00 and COPD (chronic obstructive pulmonary disease) 496 [facility] [id number] [address] Dec, [facility] [id number] [place] [address] Dec, [facility] [id number] [address] Nov, [facility] [id number] [place] [address] Oct, Diabetes 250.00 [facility] [id number] [address] Sep, [facility] [id number] [place] [address] Sep, [facility] [id number] [address] Sep, [facility] [id number] [place] [address] Sep, Diabetes 250.00 [facility] [id number] [address] Sep, [facility] [id number] [place] [address] Sep, [facility] [id number] [address] August, Hypertension, essential, benign 401.1 ; Coronary atherosclerosis of [place] coronary artery 414.01 and Diabetic neuropathy associated with type 2 diabetes mellitus 250.60 [facility] [address] [id number] [place] [address] 29 Jul, 2014 [facility] [place] [facility] [address] [id number] [place] [address] 14 Jul, 2014 [facility] [place] [facility] [address] [facility] [id number] [place] [address] 13 Jul, 2014 [facility] [place] [facility] [address] [facility] [id number] [place] [address] Jun, [facility] [address] [id number] [place] [address] Jun, [facility] [place] [facility] [address] [id number] [place] [address] Jun, [facility] [address] [id number] [place] [address] Jun, [facility] [address] [facility] [id number] [place] [address] Jun, [facility] [address] [facility] [id number] [place] [address] May, [facility] [place] [facility] [address] [id number] [place] [address] May, [facility] [place] [facility] [address] [id number] [place] [address] May, [facility] [place] [facility] [address] [facility] [id number] [place] [address] May, [facility] [place] [facility] [address] [facility] [id number] [place] [address] May, [facility] [place] [facility] [address] [facility] [id number] [place] [address] May, [facility] [place] [facility] [address] [id number] [place] [address] May, [facility] [place] [facility] [address] [facility] [id number] [place] [address] Apr, [facility] [place] [facility] [address] [id number] [place] [address] Apr, [facility] [place] [facility] [address] [id number] [place] [address] Apr, [facility] [place] [facility] [address] [id number] [place] [address] Apr, [facility] [place] [facility] [address] [id number] [place] [address] Mar, [facility] [place] [facility] [address] [id number] [place] [address] Mar, [facility] [place] [facility] [address] [id number] [place] [address] Mar, [facility] [place] [facility] [address] [facility] [id number] [place] [address] Mar, [facility] [place] [facility] [address] [id number] [place] [address] Feb, [facility] [place] [facility] [address] [id number] [place] [address] Feb, [facility] [place] [facility] [address] [facility] [id number] [place] [address] Feb, [facility] [place] [facility] [address] [id number] [place] [address] Feb, [facility] [place] [facility] [address] [id number] [place] [address] Feb, [facility] [place] [facility] [address] [id number] [place] [address] Feb, [facility] [place] [facility] [address] [facility] [id number] [place] [address] Feb, [facility] [place] [facility] [address] [id number] [place] [address] Jan, [facility] [place] [facility] [address] [id number] [place] [address] Jan, [facility] [place] [facility] [address] [id number] [place] [address] Dec, [facility] [place] [facility] [address] [id number] [place] [address] Dec, [facility] [place] [facility] [address] [id number] [place] [address] Dec, [facility] [place] [facility] [address] [id number] [place] [address] Dec, [facility] [place] [facility] [address] [id number] [place] [address] Dec, [facility] [place] [facility] [address] [id number] [place] [address] Dec, [facility] [place] [facility] [address] [id number] [place] [address] Dec, [facility] [place] [facility] [address] [id number] [place] [address] Dec, [facility] [place] [facility] [address] [id number] [place] [address] Nov, [facility] [place] [facility] [address] [id number] [place] [address] Nov, [facility] [place] [facility] [address] [id number] [place] [address] Nov, [facility] [place] [facility] [address] [id number] [place] [address] Nov, [facility] [place] [facility] [address] [id number] [place] [address] Oct, [facility] [place] [facility] [address] [id number] [place] [address] Oct, [facility] [place] [facility] [address] [id number] [place] [address] Oct, [facility] [place] [facility] [address] [id number] [place] [address] Oct, [facility] [place] [facility] [address] [id number] [place] [address] Oct, [facility] [place] [facility] [address] [id number] [place] [address] Oct, [facility] [place] [facility] [address] [id number] [place] [address] Oct, [facility] [place] [facility] [address] [id number] [place] [address] Oct, [facility] [place] [facility] [address] [id number] [place] [address] Sep, [facility] [place] [facility] [address] [id number] [place] [address] Sep, [facility] [place] [facility] [address] [id number] [place] [address] August, [facility] [place] [facility] [address] [id number] [place] [address] August, [facility] [place] [facility] [address] [id number] [place] [address] Jul, [facility] [place] [facility] [address] [id number] [place] [address] Jul, [facility] [place] [facility] [address] [id number] [place] [address] Jul, [facility] [place] [facility] [address] [id number] [place] [address] Jul, [facility] [place] [facility] [address] [id number] [place] [address] Jul, [facility] [place] [facility] [address] [id number] [place] [address] Jul, [facility] [place] [facility] [address] [id number] [place] [address] 18 Jul, 2013 [facility] [address] [id number] [place] [address] Jul, [facility] [place] [facility] [address] [id number] [place] [address] Jun, [facility] [address] [id number] [place] [address] Jun, [facility] [place] [facility] [address] [id number] [place] [address] Jun, [facility] [address] [id number] [place] [address] Jun, [facility] [place] [facility] [address] [id number] [place] [address] May, [facility] [place] [facility] [address] [id number] [place] [address] May, [facility] [address] [id number] [place] [address] Apr, [facility] [address] [id number] [place] [address] Apr, [facility] [address] [id number] [place] [address] Mar, [facility] [place] [facility] [address] [id number] [place] [address] Mar, [facility] [place] [facility] [address] [id number] [place] [address] Mar, [facility] [place] [facility] [address] [id number] [place] [address] Mar, [facility] [place] [facility] [address] [id number] [place] [address] Mar, [facility] [place] [facility] [address] [id number] [place] [address] Mar, [facility] [place] [facility] [address] [id number] [place] [address] Feb, [facility] [place] [facility] [address] [id number] [place] [address] Feb, [facility] [place] [facility] [address] [id number] [place] [address] Feb, [facility] [place] [facility] [address] [id number] [place] [address] Feb, [facility] [place] [facility] [address] [id number] [place] [address] Feb, [facility] [place] [facility] [address] [id number] [place] [address] Feb, [facility] [place] [facility] [address] [id number] [place] [address] Feb, [facility] [place] [facility] [address] [id number] [place] [address] Feb, [facility] [place] [facility] [address] [id number] [place] [address] 15 Jan, 2013 [facility] [place] [facility] [address] [id number] [place] [address] 15 Jan, 2013 [facility] [place] [facility] [address] [id number] [place] [address] 14 Jan, 2013 [facility] [place] [facility] [address] [id number] [place] [address] 14 Jan, 2013 [facility] [place] [facility] [address] [id number] [place] [address] 18 Dec, 2012 [facility] [place] [facility] [address] [id number] [place] [address] 13 Dec, 2012 [facility] [place] [facility] [address] [id number] [place] [address] 2012 [facility] [place] [facility] [address] [id number] [place] [address] Nov, [facility] [address] [id number] [place] [address] Nov, [facility] [place] [facility] [address] [id number] [place] [address] Oct, [facility] [place] [facility] [address] [id number] [place] [address] Oct, [facility] [place] [facility] [address] [id number] [place] [address] Oct, [facility] [place] [facility] [address] [id number] [place] [address] Sep, [facility] [place] [facility] [address] [id number] [place] [address] Sep, [facility] [place] [facility] [address] [id number] [place] [address] Sep, [facility] [place] [facility] [address] [id number] [place] [address] Sep, [facility] [place] [facility] [address] [id number] [place] [address] Sep, [facility] [place] [facility] [address] [id number] [place] [address] Sep, [facility] [place] [facility] [address] [id number] [place] [address] August, [facility] [place] [facility] [address] [id number] [place] [address] August, [facility] [place] [facility] [address] [id number] [place] [address] August, [facility] [place] [facility] [address] [id number] [place] [address] August, [facility] [place] [facility] [address] [id number] [place] [address] August, [facility] [place] [facility] [address] [id number] [place] [address] August, [facility] [address] [id number] [place] [address] August, [facility] [address] [id number] [place] [address] Jul, [facility] [address] [id number] [place] [address] Jul, [facility] [address] [id number] [place] [address] Jun, [facility] [address] [id number] [place] [address] Jun, [facility] [address] [id number] [place] [address] May, [facility] [address] [id number] [place] [address] May, [facility] [address] [id number] [place] [address] Apr, [facility] [address] [id number] [place] [address] Mar, [facility] [address] [id number] [place] [address] Mar, [facility] [address] [id number] [place] [address] Mar, [facility] [address] [id number] [place] [address] Mar, [facility] [place] [facility] [address] [id number] [place] [address] Mar, [facility] [address] [id number] [place] [address] Mar, [facility] [address] [id number] [place] [address] Feb, [facility] [place] [facility] [address] [id number] [place] [address] Feb, [facility] [place] [facility] [address] [id number] [place] [address] Feb, [facility] [place] [facility] [address] [id number] [place] [address] Feb, [facility] [place] [facility] [address] [id number] [place] [address] Feb, [facility] [place] [facility] [address] [id number] [place] [address] Feb, [facility] [place] [facility] [address] [id number] [place] [address] Feb, [facility] [place] [facility] [address] [id number] [place] [address] Feb, [facility] [place] [facility] [address] [id number] [place] [address] Jan, [facility] [place] [facility] [address] [id number] [place] [address] Jan, [facility] [place] [facility] [address] [id number] [place] [address] 28 Dec, 2011 [facility] [place] [facility] [address] [id number] [place] [address] Dec, [facility] [place] [facility] [address] [id number] [place] [address] 18 Dec, 2011 [facility] [place] [facility] [address] [id number] [place] [address] 18 Dec, 2011 [facility] [place] [facility] [address] [id number] [place] [address] Dec, [facility] [place] [facility] [address] [id number] [place] [address] Nov, [facility] [place] [facility] [address] [id number] [place] [address] Oct, [facility] [address] [id number] [place] [address] Oct, [facility] [place] [facility] [address] [id number] [place] [address] Sep, [facility] [address] [id number] [place] [address] Sep, [facility] [place] [facility] [address] [id number] [place] [address] Sep, [facility] [address] [id number] [place] [address] Sep, [facility] [place] [facility] [address] [id number] [place] [address] Sep, [facility] [place] [facility] [address] [id number] [place] [address] Sep, [facility] [address] [id number] [place] [address] Sep, [facility] [place] [facility] [address] [id number] [place] [address] Sep, [facility] [address] [id number] [place] [address] August, [facility] [place] [facility] [address] [id number] [place] [address] August, [facility] [place] [facility] [address] [id number] [place] [address] August, [facility] [place] [facility] [address] [id number] [place] [address] Jul, [facility] [place] [facility] [address] [id number] [place] [address] Jul, [facility] [place] [facility] [address] [id number] [place] [address] Jun, [facility] [address] [id number] [place] [address] Jun, [facility] [place] [facility] [address] [id number] [place] [address] Jun, [facility] [place] [facility] [address] [id number] [place] [address] Jun, [facility] [place] [facility] [address] [id number] [place] [address] May, [facility] [place] [facility] [address] [id number] [place] [address] May, [facility] [place] [facility] [address] [id number] [place] [address] Apr, [facility] [place] [facility] [address] [id number] [place] [address] Apr, [facility] [place] [facility] [address] [id number] [place] [address] Apr, [facility] [place] [facility] [address] [id number] [place] [address] Mar, [facility] [place] [facility] [address] [id number] [place] [address] Mar, [facility] [place] [facility] [address] [id number] [place] [address] Mar, [facility] [place] [facility] [address] [id number] [place] [address] Feb, [facility] [place] [facility] [address] [id number] [place] [address] Feb, [facility] [place] [facility] [address] [id number] [place] [address] Feb, [facility] [place] [facility] [address] [id number] [place] [address] Feb, [facility] [place] [facility] [address] [id number] [place] [address] 25 Jan, 2011 [facility] [address] [id number] [place] [address] 14 Jan, 2011 [facility] [place] [facility] [address] [id number] [place] [address] 12 Jan, 2011 [facility] [place] [facility] [address] [id number] [place] [address] 16 Dec, 2010 [facility] [place] [facility] [address] [id number] [place] [address] 13 Oct, 2010 [facility] [place] [facility] [address] [id number] [place] [address] 24 Mar, 2010 [facility] [place] [facility] [address] [id number] [place] [address] Feb, [facility] [place] [facility] [address] [id number] [place] [address] Feb, [facility] [place] [facility] [address] [id number] [place] [address] 16 May, 2009 [facility] [place] [facility] [address] [id number] [place] [address] Apr, [facility] [place] [facility] [address] [facility] [id number] [place] [address] 29 Mar, 2009 [facility] [place] [facility] [address] [id number] [place] [address] 30 Jan, 2009 [facility] [place] [facility] [address] [id number] [place] [address] 15 Oct, 2008 [facility] [place] [facility] [address] [id number] [place] [address] 16 Jul, 2008 [facility] [place] [facility] [address] [facility] [id number] [place] [address] 04 Mar, 2008 [facility] [place] [facility] [address] [facility] [id number] [place] [address] Feb, [facility] [place] [facility] [address] [facility] [id number] [place] [address] Jan, IMMUNIZATIONS No Known Immunizations SOCIAL HISTORY Never Assessed REASON FOR VISIT Diabetes -Blaise KELLY, Right leg, and right foot are not healing as well as lef t leg. -Blaise KELLY PLAN OF CARE VITAL SIGNS Height 71 in 2018-06-24 Weight 391.5 lbs 2018-06-24 Temperature 97.4 degrees Fahrenheit 2018-06-24 Heart Rate 79 bpm 2018-06-24 Respiratory Rate 22 2018-06-24 Oximetry 95 % 2018-06-24 BMI 54.6 kg/m2 2018-06-24 Blood pressure systolic 150 mmHg 2018-06-24 Blood pressure diastolic 88 mmHg 2018-06-24 MEDICATIONS Medication Instructions Dosage Frequency Start Date End Date Duration Status Zanaflex 6 mg Orally Three times a day 1 capsule as needed 8h Feb, Active Trulicity 1.5 MG/0.5ML Subcutaneous once weekly on Thursday Inject Jan, 90 days Not-Taking Fish Oil 1200 MG Orally Once a day 2 capsule 24h Active Hydrochlorothiazide 25 MG 1 tablet in the morning 24h Active Cialis 20 mg Orally Once a day 1 tablet 24h Oct, Active ProAir HFA 108 (90 Base) MCG/ACT Inhalation every 4 hrs 2 puffs as needed 4h Active Pen [place] 31G X 8 MM subcutaneously Once a day Inject 24h Nov, Active Tylenol Extra Strength 500 mg Orally 3 times a day 2 tablets 8h Active Silver Sulfadiazine 1 % APPLY TOPICALLY TO AFFECTED AREA ONCE DAILY 10 Active Vitamin B Complex Active Metoprolol Tartrate 100 mg 1 tablet with food 12h Active Furosemide 20 mg Orally 2 times a day 2 tablets in the am, 1 tablet in the evening 12h Active Klor-Con 10 10 MEQ Orally Twice a day 1 tablet with food 12h Mar, 30 day(s) Active Lyrica 200 mg Orally Three times a day 1 capsule 8h 28 days Active Cymbalta 60 mg 1 capsule 24h Active Glucometer as directed Oct, Active Basaglar KwikPen 100 UNIT/ML Subcutaneous Once a day Inject 80 units 24h 30 Active lidocaine topical 5 %(700 mg/patch) 3 PATCH by Topical route 1 time per day apply on bilateral wrist and left ankle 24h 14 Jan, 2013 Active Finasteride 5 mg Orally Once a day 1 tablet 24h 24 Dec, 2017 30 day(s) Active Mupirocin 2 % 1 application to affected area 12h Active Doxepin HCl 100 MG Orally Once a day, at night 2 capsules Dec, Active Lancets - TRUE METRIX E11.65 2 times a day test blood sugar 12h Oct, 50 days Active Blood Glucose Test 1 test blood sugar 12h Jul, Active Atorvastatin Calcium 40 mg Orally Once a day 1 tablet 24h Active Aspirin 325 MG Orally Once a day 1 tablet 24h Active Symbicort 160-4.5 MCG/ACT Inhalation Twice a day 2 puff 12h Feb, Active C-PAP Supplies as directed Mar, Active GlipiZIDE 10 mg Orally 2 times a day 2 tablets 12h Active RESULTS No Results PROCEDURES No [...]
[2018-09-10] MEDS ORDERED: NS IV 1000 ML 1,000 ML ONE (16:10)
--- NOTE | 2018-09-10 16:11 | NUR ---
SPOKE WITH THE PATIENT ABOUT HIS MEDICATIONS. WE WENT OVER HIS MED REC IN DETAIL WHEN HE WAS HERE AT HIS LAST RECENT VISIT. HE STATES HE DID STOP TAKING THE BENADRYL, FISH OIL, AND HCTZ THAT WERE DISCONTINUED AT THAT DISCHARGE. HE DID FILL THE NEW SCRIPT, ZPAK, AND FINISHED THAT. 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 I CHANGED THE DIRECTIONS TO BE 1 TO 1.5 TABLETS TID.
[2018-09-10] MEDS ORDERED: RT-ALBUTEROL SULF 2.5 MG/3 ML PRE-MIX VIAL INH PRN (16:45)
[2018-09-10] MEDS ORDERED: CATHETER FLUSH 10 ML SYR IV PRN (16:45)
[2018-09-10] MEDS: NS IV 1000 ML 1,000 ML IV SCH ×2 (16:51→23:20)
[2018-09-10] MEDS ORDERED: VANCOMYCIN 2,500 MG/NS 500 ML IVPB IV NR ×2 (17:00)
--- NOTE | 2018-09-10 17:00 | NUR ---
PHARMACY TO DOSE VANCOMYCIN: ADJ BW 116, SCr 1.1, EST CrCl 114 LOADING DOSE: 2,500 MG @ 17:00 MAIN DOSE: 2,500 MG Q 12 HRS STARTING 09/11/18 03:00 VANCOMYCIN TROUGH DUE 09/12/18 @ 02:00 IF TROUGH IS GREATER THAN 20 HOLD 09/12/18 03:00 DOSE.
[2018-09-10] MEDS: methylPREDNISolone 40 MG/ML (Solu-MEDROL) VIAL IV SCH ×2 (17:47→23:50)
[2018-09-10] MEDS: inSUlin ASPART (NovoLOG) 1 UNIT/0.01 ML (CHARGE PER UNIT) SC SCH ×2 (18:03→23:55)
[2018-09-10] MEDS: RT-ALBUTEROL/IPRATROPIUM 3 ML (DUONEB) VIAL IH SCH ×2 (18:52→22:34)
[2018-09-10] MEDS ORDERED: ACETAMINOPHEN 500 MG TAB (TYLENOL) PO ONE (21:15)
[2018-09-10] MEDS ORDERED: meTOprolol 5 MG/5 ML (LOPRESSOR) VIAL IV ONE (21:30)
[2018-09-10] MEDS: PIPERACILLIN/TAZO 4.5 GM/NS 100 ML IV SCH ×2 (21:32)
[2018-09-10] MEDS: PREGABALIN 100 MG (LYRICA) CAPSULE PO SCH (21:32)
[2018-09-11] VITALS (15 sets, daily range): BP systolic 138–196; BP diastolic 76–126
[2018-09-11] MEDS ORDERED: morphine INJ 10 MG/ML 1ML (SYR OR VIAL) IVP STA (01:01)
[2018-09-11] MEDS ORDERED: morphine INJ 4 MG/ML 1 ML (VIAL/SYRINGE) ONE (01:04)
[2018-09-11] MEDS: RT-ALBUTEROL/IPRATROPIUM 3 ML (DUONEB) VIAL IH SCH ×6 (02:18→23:16)
[2018-09-11] MEDS ORDERED: KCL 10 MEQ TAB (MICRO K) PO ONE (03:30)
[2018-09-11] MEDS ORDERED: FUROSEMIDE 40 MG/4 ML INJ (LASIX) IVP ONE (03:30)
--- NOTE | 2018-09-11 03:33 | Pulmonary Consultation ---
History of Present Illness History of Present Illness Date of Consultation 09/10/18 1730 Late note for 09/10 today is 09/11 Time Seen by Provider: 17:30 Date of Admission History of Present Illness 62yo with hx of poor medical compliance, multiple hospitalizations, Morbid obesity/OHS, VENKATA, RLD, and chronic bilateral LE wounds presented to ED secondary to worsening SOB and fever. Pt was just discharged from hospital and he saw me in the office on . His SOB just started day of ED admission. I am consulted for pulmonary management. Allergies and Home Medications Allergies Coded Allergies: Sulfa (Sulfonamide Antibiotics) (Unverified Allergy, Unknown, 03/21/14) latex (Unverified Allergy, Unknown, 03/21/14) raspberry (Unverified Allergy, Unknown, 03/21/14) zinc oxide (Unverified Allergy, Unknown, 03/21/14) Uncoded Allergies: ARTIFICIAL SWEETNERS (Allergy, Unknown, 03/21/14) Home Medications Acetaminophen 500 Mg Tablet, 1,000 MG PO TID, (Reported) TAKES 2 (500MG) TABLETS Aspirin 325 Mg Tablet.dr, 325 MG PO DAILY, (Reported) Atorvastatin Calcium 40 Mg Tablet, 40 MG PO HS, (Reported) B Complex with Vitamin C 1 Each Tablet, 1 TAB PO DAILY, (Reported) Budesonide/Formoterol Fumarate 10.2 Gm Hfa.aer.ad, 2 PUFF INH BID, (Reported) Doxepin HCl 100 Mg Capsule, 200 MG PO HS, (Reported) TAKES 2 (100MG) CAPSULES Duloxetine HCl 60 Mg Capsule.dr, 60 MG PO DAILY, (Reported) Finasteride 5 Mg Tablet, 5 MG PO DAILY, (Reported) Furosemide 20 Mg Tablet, 40 MG PO DAILY, (Reported) TAKES 2 (20MG) TABLETS Furosemide 20 Mg Tablet, 20 MG PO 1800, (Reported) Glipizide 10 Mg Tablet, 20 MG PO BID, (Reported) TAKES 2 (10MG) TABLETS Insulin Glargine,Hum.rec.anlog 100 Unit/1 Ml Insuln.pen, 80 UNITS SC HS, (Reported) Lidocaine 1 Each Adh..patch, 2-3 PATCH TOP DAILY PRN for PAIN-MODERATE, (Reported) Metoprolol Tartrate 100 Mg Tablet, 100 MG PO BID, (Reported) Polyethylene Glycol 3350 17 Gm Powd.pack, 17 GM PO MoWeFr, (Reported) Pregabalin 200 Mg Capsule, 200 MG PO TID, (Reported) Tizanidine HCl 4 Mg Tablet, 4-6 MG PO TID, (Reported) TAKES 1 TO 1 & 1/2 (4MG) TABLETS Past Yftzbdv-Lixcii-Qhkxga Hx Patient Social History Alcohol Use: Denies Use Recreational Drug Use: No Smoking Status: Former Smoker Type Used: Cigars, Cigarettes 2nd Hand Smoke Exposure: No Recent Foreign Travel: No Contact w/Someone Who Travel: No Recent Infectious Disease Expo: No Recent Hopitalizations: Yes (RELEASED ON THURSDAY) Physical Abuse: No Sexual Abuse: No Immunizations Up To Date Tetanus Booster (TDap): Unknown Date of Pneumonia Vaccine: Apr 20, 2016 Date of Influenza Vaccine: Jan 18, 2018 Seasonal Allergies Seasonal Allergies: No Past Medical History Surgeries: No Respiratory: Yes Sleep Apnea, COPD Currently Using CPAP: No Currently Using BIPAP: Yes Cardiac: Yes High Cholesterol, Hypertension Neurological: Yes Neuropathy Genitourinary: No Gastrointestinal: No Musculoskeletal: Yes (CHRONIC GENERALIZED PAIN ) Arthritis, Fibromyalgia Endocrine: Yes (MORBID OBESITY) Diabetes, Insulin dep HEENT: No Cancer: No Psychosocial: No Integumentary: Yes (CHRONIC LEG WOUNDS) Blood Disorders: No Family Medical History Heart Disease, Cancer, CAD Over 55 Years Old, Diabetes, Hypertension, Stroke, Vascular Disease Review of Systems Time Seen by Provider: 05:01 Constitutional: Fever, Chills, Sweats, Weakness, Malaise, Other Eyes: No: Pain, Vision change, Conjunctivae inflammation, Eyelid inflammation, Other, Redness ENT: Nose congestion; No: Ear pain, Ear discharge, Nose pain, Nose discharge, Mouth pain, Mouth swelling, Throat pain, Throat swelling, Other Respiratory: Cough, Dry, Shortness of breath, SOB with excertion, Wheezing; No: Hemoptysis, Pleuritic Pain Cardiovascular: Palpitations, Orthopnea, Paroxysmal Noc. Dyspnea, Edema, Lt Headedness Gastrointestinal: Constipation; No: Nausea, Vomiting, Abdominal Pain, Diarrhea, Melena, Hematochezia, Other Neurological: Weakness, Confusion; No: Change in speech, Seizures Sepsis Event Evaluation Height, Weight, BMI Height: 5'10.00" Weight: 423lbs. 0.0oz. 191.579047rm; 60.7 BMI Method:Stated Exam Exam Vital Signs Date Time Temp Pulse Resp B/P (MAP) Pulse Ox O2 Delivery O2 Flow Rate FiO2 09/11/18 02:18 90 12 92 25.00 09/11/18 02:00 92 15 138/94 (109) 90 NIV Bilevel 25.00 09/11/18 01:00 92 09/11/18 01:00 92 14 160/100 (120) 90 NIV Bilevel 25.00 09/11/18 00:40 94 21 92 25.00 09/11/18 00:17 High Flow N/C 10.00 09/11/18 00:00 99.7 09/11/18 00:00 NIV Bilevel 25.00 09/11/18 00:00 92 16 176/117 (136) 92 NIV Bilevel 25.00 09/10/18 23:00 93 15 138/109 (119) 96 NIV Bilevel 25.00 09/10/18 22:43 NIV Bilevel 25.00 09/10/18 22:34 91 20 91 25.00 09/10/18 22:00 90 18 157/99 (118) 91 High Flow N/C 10.00 09/10/18 21:00 86 22 167/114 (131) 93 High Flow N/C 10.00 09/10/18 20:00 93 16 162/104 (123) 92 High Flow N/C 10.00 09/10/18 20:00 99.5 09/10/18 20:00 NIV Bilevel 25.00 09/10/18 19:45 High Flow N/C 10.00 09/10/18 19:00 82 21 150/100 (117) 92 NIV Bilevel 25.00 09/10/18 19:00 82 09/10/18 18:52 85 17 91 25.00 09/10/18 18:00 90 17 163/106 (125) 91 NIV Bilevel 25.00 09/10/18 17:00 90 18 170/116 (134) 83 NIV Bilevel 25.00 09/10/18 16:45 88 18 162/114 (130) 89 NIV Bilevel 25.00 09/10/18 16:30 90 17 151/98 (115) 90 NIV Bilevel 25.00 09/10/18 16:15 92 23 142/112 (122) 92 NIV Bilevel 25.00 09/10/18 16:07 92 09/10/18 16:04 93 28 91 25.00 09/10/18 16:00 91 NIV Bilevel 25.00 09/10/18 16:00 96 19 131/109 (116) 92 NIV Bilevel 25.00 09/10/18 16:00 98.9 09/10/18 15:47 98 NIV Bilevel 25 09/10/18 15:33 89 24 134/93 (107) 93 NIV Bilevel 40.00 09/10/18 15:14 98 NIV Bilevel 25 09/10/18 13:57 97 NIV Bilevel 40 09/10/18 13:53 94 24 93 40.00 09/10/18 13:30 94 OxyMask 10.00 09/10/18 13:30 98.8 96 36 160/106 (124) 94 OxyMask 10.00 I & O 09/11/18 07:00 Intake Total 1255 ml Output Total 700 ml Balance 555 ml Height & Weight Height: 5'10.00" Weight: 423lbs. 0.0oz. 191.287407ap; 60.7 BMI Method:Stated General Appearance: Anxious, Moderate Distress, Obese HEENT: PERRL/EOMI, Normal ENT Inspection, Pharynx Normal Neck: Full Range of Motion, Normal Inspection, Non Tender, Supple Respiratory: Chest Non Tender, Accessory Muscle Use, Decreased Breath Sounds, Wheezing Cardiovascular: Regular Rate, Rhythm, No Murmur, Normal Peripheral Pulses Capillary Refill: Less Than 3 Seconds Gastrointestinal: normal bowel sounds, non tender, soft, no organomegaly, no pulsatile mass Extremity: Normal Capillary Refill, Normal Inspection, Normal Range of Motion, Non Tender Neurologic/Psychiatric: Alert, Oriented x3 Skin: Normal Color, Warm/Dry Lymphatic: No Adenopathy Results Lab Laboratory Tests 09/10/18 13:40 Assessment/Plan Assessment/Plan Acute on chronic respiratory failure -Pt has home BiPAP -Secondary to his insurance we will not be able to get home vent to mask -ABG 54 Pneumonia - Vancomycin and Zosyn -Reyes cultures pending -MRSA nasal swab pending RLD -Last PFT was 07/2018 - Shows severe RLD with asthma and decreased DLCO AsthmaAE -Solumedrol, SVNS, Advair, Singulair, Claritin -Pt uses symbicort and proair as out patient -Pt has a nebulizer at home with Duoneb Diastolic CHF EF 60% OHS/VENKATA -PT has BiPAP with 2 liters of oxygen -Last BiPAP down load 08/2018 -AHI 2.1 -Does shows compliance -Pt states the last time he was in hospital he was sent home with a different BiPAP machine. Once someone brings his machine in I'll have the DME look at it and get a new down load. Tobacco use - quit in 1991 Chronic leg wounds - known to Wound care clinic -Wound care is consulted TAMIKA HILARIO DO September 11, 2018 03:33
[2018-09-11] MEDS: VANCOMYCIN 2,500 MG/NS 500 ML IVPB IV SCH ×4 (03:37→16:43)
[2018-09-11 03:44] LABS: ABG BASE EXCESS 1.8 MMOL/L (-2.5-2.5); ABG OXYGEN SATURATION 95 % (94-100); ABG PCO2 40 MMHG (35-45); ABG PH 7.43 (7.37-7.43); ABG PO2 74 MMHG (79-93); ABG TCO2 27.2 MMOL/L (21.0-31.0)
[2018-09-11 03:53] LABS: ALLENS TEST POSITIVE; INSPIRED O2 25% BIPAP; PATIENT TEMP 96.8; VENTILATOR YES
[2018-09-11 04:19] LABS: BASOPHILS % (AUTO) 0 % (0-10); EOSINOPHILS % (AUTO) 0 % (0-10); HEMATOCRIT 40 % (40-54); HEMOGLOBIN 12.8 G/DL (13.3-17.7); LYMPHOCYTES # (AUTO) 0.3 X 10^3 (1.0-4.0); LYMPHOCYTES % (AUTO) 2 % (12-44); MEAN CORPUSCULAR HEMOGLOBIN 27 PG (25-34); MEAN CORPUSCULAR HGB CONC 32 G/DL (32-36); MEAN CORPUSCULAR VOLUME 84 FL (80-99); MEAN PLATELET VOLUME 10.7 FL (7.4-10.4); MONOCYTES # (AUTO) 0.1 X 10^3 (0.0-1.0); MONOCYTES % (AUTO) 1 % (0-12); NEUTROPHILS # (AUTO) 15.9 X 10^3 (1.8-7.8); NEUTROPHILS % (AUTO) 98 % (42-75); PLATELET COUNT 213 10^3/uL (130-400); RED CELL DISTRIBUTION WIDTH 18.9 % (10.0-14.5); WHITE BLOOD COUNT 16.3 10^3/uL (4.3-11.0)
[2018-09-11 04:36] LABS: BUN/CREATININE RATIO 17; CALCIUM 9.1 MG/DL (8.5-10.1); CARBON DIOXIDE 22 MMOL/L (21-32); CHLORIDE 102 MMOL/L (98-107); CREATININE SERUM 1.05 MG/DL (0.60-1.30); GFR ESTIMATED > 60; GLUCOSE 252 MG/DL (70-105); PHOSPHORUS 2.7 MG/DL (2.3-4.7); POTASSIUM 3.7 MMOL/L (3.6-5.0); SODIUM 140 MMOL/L (135-145)
[2018-09-11 04:46] LABS: ALBUMIN 3.4 GM/DL (3.2-4.5); MAGNESIUM 1.7 MG/DL (1.8-2.4)
--- NOTE | 2018-09-11 05:04 | Pulmonary Progress Note ---
Subjective Time Seen by a Provider: 04:30 Subjective/Events-last exam Currently on BiPAP. Sepsis Event Evaluation Height, Weight, BMI Height: 5'10.00" Weight: 423lbs. 0.0oz. 191.909105eh; 60.7 BMI Method:Stated Focused Exam Lactate Level 09/10/18 13:40: Lactic Acid Level 1.53 Exam Exam Vital Signs Date Time Temp Pulse Resp B/P (MAP) Pulse Ox O2 Delivery O2 Flow Rate FiO2 09/11/18 04:52 91 Vapotherm 30.00 20.00 09/11/18 04:10 91 Vapotherm 20.00 30 09/11/18 04:00 97.6 09/11/18 04:00 94 16 172/113 (132) 91 Vapotherm 30.00 20.00 09/11/18 04:00 NIV Bilevel 25.00 09/11/18 03:00 94 14 152/94 (113) 92 NIV Bilevel 25.00 09/11/18 02:18 90 12 92 25.00 09/11/18 02:00 92 15 138/94 (109) 90 NIV Bilevel 25.00 09/11/18 01:00 92 09/11/18 01:00 92 14 160/100 (120) 90 NIV Bilevel 25.00 09/11/18 00:40 94 21 92 25.00 09/11/18 00:17 High Flow N/C 10.00 09/11/18 00:00 99.7 09/11/18 00:00 NIV Bilevel 25.00 09/11/18 00:00 92 16 176/117 (136) 92 NIV Bilevel 25.00 09/10/18 23:00 93 15 138/109 (119) 96 NIV Bilevel 25.00 09/10/18 22:43 NIV Bilevel 25.00 09/10/18 22:34 91 20 91 25.00 09/10/18 22:00 90 18 157/99 (118) 91 High Flow N/C 10.00 09/10/18 21:00 86 22 167/114 (131) 93 High Flow N/C 10.00 09/10/18 20:00 93 16 162/104 (123) 92 High Flow N/C 10.00 09/10/18 20:00 99.5 09/10/18 20:00 NIV Bilevel 25.00 09/10/18 19:45 High Flow N/C 10.00 09/10/18 19:00 82 21 150/100 (117) 92 NIV Bilevel 25.00 09/10/18 19:00 82 09/10/18 18:52 85 17 91 25.00 09/10/18 18:00 90 17 163/106 (125) 91 NIV Bilevel 25.00 09/10/18 17:00 90 18 170/116 (134) 83 NIV Bilevel 25.00 09/10/18 16:45 88 18 162/114 (130) 89 NIV Bilevel 25.00 09/10/18 16:30 90 17 151/98 (115) 90 NIV Bilevel 25.00 09/10/18 16:15 92 23 142/112 (122) 92 NIV Bilevel 25.00 09/10/18 16:07 92 09/10/18 16:04 93 28 91 25.00 09/10/18 16:00 91 NIV Bilevel 25.00 09/10/18 16:00 96 19 131/109 (116) 92 NIV Bilevel 25.00 09/10/18 16:00 98.9 09/10/18 15:47 98 NIV Bilevel 25 09/10/18 15:33 89 24 134/93 (107) 93 NIV Bilevel 40.00 09/10/18 15:14 98 NIV Bilevel 25 09/10/18 13:57 97 NIV Bilevel 40 09/10/18 13:53 94 24 93 40.00 09/10/18 13:30 94 OxyMask 10.00 09/10/18 13:30 98.8 96 36 160/106 (124) 94 OxyMask 10.00 I & O 09/11/18 07:00 Intake Total 2005 ml Output Total 700 ml Balance 1305 ml Height & Weight Height: 5'10.00" Weight: 423lbs. 0.0oz. 191.261442sc; 60.7 BMI Method:Stated General Appearance: Anxious, Mild Distress, Obese HEENT: PERRL/EOMI, Normal ENT Inspection, Pharynx Normal Neck: Full Range of Motion, Normal Inspection, Non Tender, Supple Respiratory: Chest Non Tender, Accessory Muscle Use, Decreased Breath Sounds, Wheezing Cardiovascular: Regular Rate, Rhythm, No Murmur, Normal Peripheral Pulses Capillary Refill: Less Than 3 Seconds Gastrointestinal: normal bowel sounds, non tender, soft, no organomegaly, no pulsatile mass Extremity: Normal Capillary Refill, Normal Inspection, Normal Range of Motion, Non Tender Neurologic/Psychiatric: Alert, Oriented x3 Skin: Normal Color, Warm/Dry Lymphatic: No Adenopathy Results Lab Laboratory Tests 09/10/18 13:40 09/11/18 03:59 Assessment/Plan Assessment/Plan Acute on chronic respiratory failure -Trial off BIPAP to Vapotherm -Pt has home BiPAP -Secondary to his insurance we will not be able to get home vent to mask -ABG 54 Pneumonia -Continue Vancomycin and Zosyn -Reyes cultures pending -MRSA nasal swab pending RLD -Last PFT was 07/2018 - Shows severe RLD with asthma and decreased DLCO AsthmaAE -Solumedrol, SVNS, Advair, Singulair, Claritin -Pt uses symbicort and proair as out patient -Pt has a nebulizer at home with Duoneb Diastolic CHF EF 60% -Continue home Lasix OHS/VENKATA -PT has BiPAP with 2 liters of oxygen -Last BiPAP down load 08/2018 -AHI 2.1 -Does shows compliance -Pt states the last time he was in hospital he was sent home with a different BiPAP machine. Once someone brings his machine in I'll have the DME look at it and get a new down load. Tobacco use - quit in 1991 Chronic leg wounds - known to Wound care clinic -Wound care is consulted TAMIKA HILARIO DO September 11, 2018 05:03
[2018-09-11] MEDS: meTOprolol 5 MG/5 ML (LOPRESSOR) VIAL IV PRN (06:06)
[2018-09-11] MEDS: PIPERACILLIN/TAZO 4.5 GM/NS 100 ML IV SCH ×6 (06:06→20:35)
[2018-09-11] MEDS: inSUlin ASPART (NovoLOG) 1 UNIT/0.01 ML (CHARGE PER UNIT) SC SCH ×3 (06:47→18:55)
[2018-09-11] MEDS: MAGNESIUM 1 GM/100 ML IVPB 100 ML IV SCH ×3 (06:47→12:42)
[2018-09-11] MEDS ORDERED: PATCH REMOVAL TP PRN (07:15)
[2018-09-11] MEDS: FINASTERIDE (PROSCAR) 5 MG TAB PO SCH (07:20)
[2018-09-11] MEDS: methylPREDNISolone 40 MG/ML (Solu-MEDROL) VIAL IV SCH ×2 (07:20→20:29)
[2018-09-11] MEDS: meTOprolol TARTRATE 50 MG (LOPRESSOR) TAB PO SCH ×2 (07:21→20:28)
[2018-09-11] MEDS: ASPIRIN E.C. 325 MG (ECOTRIN) TABLET PO SCH (07:21)
[2018-09-11] MEDS: PREGABALIN 100 MG (LYRICA) CAPSULE PO SCH ×3 (07:21→20:35)
[2018-09-11] MEDS: LORATADINE (CLARITIN) 10 MG TAB PO SCH (07:21)
--- NOTE | 2018-09-11 08:58 | Diagnostic Imaging Report ---
INDICATION: Dyspnea. COMPARISON: September 10, 2018 TECHNIQUE: Single radiograph of the chest dated September 11, 2018. FINDINGS: The cardiac silhouette is enlarged, stable. No significant pulmonary vascular congestion. Improved aeration of the left lung is noted with only minimal residual left basilar opacities remaining. Previously noted opacities within the right mid and lower lung appear stable. No new focal pulmonary opacity. No significant pleural effusion or pneumothorax. Osseous structures appear stable. IMPRESSION: 1. Improved aeration of the left lung with improved though minimal persisting left basilar infiltrate. 2. Persistent right mid and lower lung pulmonary opacities. 3. No adverse change when compared to the prior exam. Dictated by: Dictated on workstation # [id number]
[2018-09-11] MEDS ORDERED: FLUTICASONE NASAL SPRAY (FLONASE) 16 GM BTL NS SCH (09:00)
[2018-09-11] MEDS ORDERED: NON-FORMULARY MEDICATION 1 EA EA (Pregabalin (Lyrica) 200 MG) PO SCH (09:00)
[2018-09-11] MEDS ORDERED: NON-FORMULARY MEDICATION 1 EA EA (Metoprolol Tartrate 100 MG) PO SCH (09:00)
--- NOTE | 2018-09-11 09:45 | NUR ---
pt to room 422 via chair. introduced to room and call system. placed on vapo therm. report given to DORENE MATA.
--- NOTE | 2018-09-11 10:10 | Occupational Therapy Eval ---
OT Evaluation-General/PLF Medical Diagnosis Admission Date September 10, 2018 at 14:55 Medical Diagnosis: Resp failure, COPD exacerbation Onset Date: September 10, 2018 Therapy Diagnosis Therapy Diagnosis: debility Height/Weight Height (Feet): 5 Height (Inches): 10.00 Weight (Pounds): 423 Weight (Ounces): 5.0 Precautions Precautions/Isolations: Fall Prevention, Standard Precautions Safety Interventions: None Referral Physician: Ana Medical History Pertinent Medical History: COPD, DM, HTN Additional Medical History morbid obesity, VENKATA, chronic bilateral LE wounds, high cholesterol, neuropathy, arthritis, fibromyalgia Current History Pt presented to hospital with shortness of breath and fever Reviewed History: Yes Social History Home: Single Level Entry Into Home: Ramp ADL-Prior Level of Function Therapy Code Descriptions/Definitions Functional [place] Measure: 0=Not Assessed/NA 4=Minimal Assistance 1=Total Assistance 5=Supervision or Setup 2=Maximal Assistance 6=Modified [place] 3=Moderate Assistance 7=Complete [place] Therapy Quality Codes: 6 Independent with activity with or without an assistive device 5 Patient requires set up or clean up by helper. Patient completes activity by themselves 4 Supervision or touching assist (CGA). Spring provide cues , steadying assist 3 The helper provides less than half the effort to complete the activity 2 The helper provides more than half the effort to complete the activity 1 Dependent. The helper does all the effort to complete an activity 7 Patient refused to complete or attempt activity 9 The patient did not perform the activity before the current illness or injury 88 Not attempted due to Medical conditions or safety concerns Functional Abilities and Goals: Independent: Patient completed the activities by him/herself, with or without an assistive device, with no assistance from a helper. Needed Some Help: Patient needed partial assistance from another person to complete activities. Dependent: A helper completed the activities for the patient. Unknown: Not Applicable: ADL PLOF Comments Pt reports living at home with his father. States he is able to complete most basic self care tasks. States he was bathing and dressing without assist. Was discharged from hospital earlier this week and set up with home health. Pt states he was receiving home health OT/PT and nursing. 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 DME/Equipment: Bath Chair, Grab Bars, Shower Drive Self: Yes OT Current Status Subjective Pt in bed, agrees to therapy. RN states pt okay to get up to chair. Pt reports generalized pain, but does not rate. Mental Status/Objective Patient Orientation: Person, Place Attachments: Gonzalez Catheter, IV, Oxygen (vapotherm) Current Glasses/Contacts: Yes Hearing Aids: No Hand Dominance: Right Upper Extremity ROM grossly functional Upper Extremity Coordination intact ADL-Treatment ADL-Current Pt donned hospital gown with assist secondary to multiple lines. Pt performed supine to sit with assist to raise upper body. Scoot to EOB with min assist. Sit to stand and transfer to bedside chair with CGA for balance and assist to manage multiple lines. Pt has decreased activity tolerance and requires rest break to recover. Pt's O2 sats decrease with activity, but quickly return to >90% with rest. Pt has much difficulty scooting back in chair, requires assist to complete task. Pt sitting in chair with needs met after session. Co-treat with PT secondary to decreased activity tolerance and need for skilled clinicians. Therapy Code Descriptions/Definitions Functional [place] Measure: 0=Not Assessed/NA 4=Minimal Assistance 1=Total Assistance 5=Supervision or Setup 2=Maximal Assistance 6=Modified [place] 3=Moderate Assistance 7=Complete [place] Therapy Quality Codes: 6 Independent with activity with or without an assistive device 5 Patient requires set up or clean up by helper. Patient completes activity by themselves 4 Supervision or touching assist (CGA). Spring provide cues , steadying assist 3 The helper provides less than half the effort to complete the activity 2 The helper provides more than half the effort to complete the activity 1 Dependent. The helper does all the effort to complete an activity 7 Patient refused to complete or attempt activity 9 The patient did not perform the activity before the current illness or inj ury 88 Not attempted due to Medical conditions or safety concerns Eating (FIM): 6 (Pt reports feeding himself and managing containers without assist.) Education OT Patient Education: Rehab process Teaching Recipient: Patient Teaching Methods: Discussion Response to Teaching: Verbalize Understanding OT Short Term Goals Short Term Goals 1=Demonstrate adherence to instructed precautions during ADL tasks. 2=Patient will verbalize/demonstrate understanding of assistive devices/modifi cations for ADL. 3=Patient will improve strength/tolerance for activity to enable patient to perform ADL's. OT [facility]ci Goals Audio Visual Equipment Rental Clerk Goals Time Frame: Sep 25, 2018 Bathing(FIM): 5 Upper Body Dressing(FIM): 5 Lower Body Dressing(FIM): 5 Toileting(FIM): 5 Toilet/Commode Transfer(FIM): 5 Additional Goals: 1-Demonstrate ADL Tasks, 2-Verbalize Understanding, 3- ImproveStrength/Ghulam 1=Demonstrate adherence to instructed precautions during ADL tasks. 2=Patient will verbalize/demonstrate understanding of assistive devices/modifications for ADL. 3=Patient will improve strength/tolerance for activity to enable patient to perform ADL's. OT Education/Plan Problem List/Assessment Assessment: Decreased Activ Tolerance, Decreased UE Strength, Dependent Transfers, Impaired Self-Care Skills Pt to benefit from skilled OT intervention for ADL training, transfers, strengthening, and safety education to increase level of independence and allow safe discharge. Discharge Recommendations Plan/Recommendations: Continue POC Treatment Plan/Plan of Care Treatment,Training & Education: Yes Patient would benefit from OT for education, treatment and training to promote independence in ADL's, mobility, safety and/or upper extremity function for ADL's. Plan of Care: ADL Retraining, Functional Mobility, UE Funct Exercise/Act Treatment Duration: Sep 25, 2018 Frequency: 5 times per week Estimated Hrs Per Day: .25 hour per day Rehab Potential: Fair Time/GCodes Start Time: 08:54 Stop Time: 09:11 Total Time Billed (hr/min): 17 Billed Treatment Time 1 visit, JORGE LUIS(17minutes) DORENE GILLESPIE OT September 11, 2018 10:10
[2018-09-11] MEDS: RT-ADVAIR HFA 115/21 MCG PER PUFF IH SCH ×2 (10:40→18:36)
--- NOTE | 2018-09-11 12:53 | Physical Therapy Evaluation ---
PT Evaluation-General Medical Diagnosis Admission Date September 10, 2018 at 14:55 Medical Diagnosis: Resp failure, COPD exacerbation Onset Date: September 10, 2018 Therapy Diagnosis Therapy Diagnosis: debility Height/Weight Height (Feet): 5 Height (Inches): 10.00 Weight (Pounds): 423 Weight (Ounces): 5.0 Precautions Precautions/Isolations: Fall Prevention, Standard Precautions Weight Bear Status Right Lower Extremity: Right Full Weight Bearing Left Lower Extremity: Left Full Weight Bearing Referral Physician: Ana Reason for Referral: Evaluation/Treatment Medical History Pertinent Medical History: Arthritis, COPD, DM, HTN Additional Medical History morbid obesity/OHS, VENKATA, RLD, chronic wounds (B) LE, high cholesterol, fibromyalgia Current History Pt recently hospitalized 08/27/18 to 08/31/18. States he had returned home with for wound care, PT and OT. States that the nurse who was addressing his wounds found him to have a fever and sent him back to the ED via ambulance. Reviewed History: Yes Social History Home: Single Level Current Living Status: Other Family (Lives with his 96 y.o. father) Entry Into Home: Ramp Prior/Core FIM Prior Level of Function Therapy Code Descriptions/Definitions Functional [place] Measure: 0=Not Assessed/NA 4=Minimal Assistance 1=Total Assistance 5=Supervision or Setup 2=Maximal Assistance 6=Modified [place] 3=Moderate Assistance 7=Complete [place] Therapy Quality Codes: 6 Independent with activity with or without an assistive device 5 Patient requires set up or clean up by helper. Patient completes activity by themselves 4 Supervision or touching assist (CGA). [place] provide cues , steadying assist 3 The helper provides less than half the effort to complete the activity 2 The helper provides more than half the effort to complete the activity 1 Dependent. The helper does all the effort to complete an activity 7 Patient refused to complete or attempt activity 9 The patient did not perform the activity before the current illness or injury 88 Not attempted due to Medical conditions or safety concerns Functional Abilities and Goals: Independent: Patient completed the activities by him/herself, with or without an assistive device, with no assistance from a helper. Needed Some Help: Patient needed partial assistance from another person to complete activities. Dependent: A helper completed the activities for the patient. Unknown: Not Applicable: Bed Mobility: 6 Transfers (B,C,W/C) (FIM): 6 Gait: 6 Indoor Mobility (Ambulation): Independent Stairs: Not Applicalbe Prior Devices Use: Walker, Other-see list below Prior Device Use: FWW, SPC Pt reports utilizing SPC "and sometimes nothing inside the house" prior to last admission for household distances. Utilizing FWW since recent hospitalization. PT Evaluation-Current Subjective Pt in bed, agreeable. Pt does not rate pain but reports it is "all over" due to "fibromyalgia and arthritis" Pt/Family Goals Home Objective Patient Orientation: Person, Place, Time, Situation Problem Solving: Good Attachments: Oxygen (vapotherm), Gonzalez Catheter, IV Multiple monitor lines ROM/Strength ROM Upper Extremities See OT ROM Lower Extremities grossly WFL for mobility Strength Upper Extremities See OT Strength Lower Extremities grossly 3/5 Integumentary/Posture Integumentary See nurses' notes Bladder Incontinence: Gonzalez Cath Posture Kyphotic Neuromuscular (Tone, Coordination, Reflexes) Grossly intact Sensory Vision: Functional Hearing: Functional Hand Dominance: Right Sensation Right Lower Extremit: Impaired Sensation Left Lower Extremity: Impaired Transfers Therapy Code Descriptions/Definitions Functional [place] Measure: 0=Not Assessed/NA 4=Minimal Assistance 1=Total Assistance 5=Supervision or Setup 2=Maximal Assistance 6=Modified [place] 3=Moderate Assistance 7=Complete [place] Supine to/from Sit: 4 Sit to/from Stand: 4 bed->chair transfer, RADIO ASSEMBLER, CGA x 1 Gait Mode of Locomotion: Walk Anticipated Mode of Locomotion: Walk Gait (FIM): 1 Distance (FIM): 1=up to 49 ft Distance: 3' Gait Level of Assist: 4 Gait Persons Needed: 1 Gait Assistive Device: Handheld Assist Comments/Gait Description Bed->chair transfer only with RADIO ASSEMBLER this date due to restriction of monitor lines. CGA but no LOB Balance Sitting Static: Normal Sitting Dynamic: Normal Standing Static: Good Standing Dynamic: Fair Treatment Eval Assessment/Needs Pt is a 62 y.o. male with general debility due to recent hospitalizations. Pt may benefit from skilled PT for functional strengthening and gait and transfer training to increase (I) and restore PLOF. Rehab Potential: Good PT Short Term Goals Short Term Goals Time Frame: September 17, 2018 Transfers (B,C,W/C) (FIM): 6 PT Reducing Machine Operator Goals Fpc Goals PT Fpc Goals Time Frame: Sep 24, 2018 Gait (FIM): 5 Gait distance (FIM): 0=285-65 ft Distance: 75 Gait Level of Assist: 6 Gait Assistive Device: FWW LTGs established to allow safe return home (I) PT Plan Problem List Problem List: Activity Tolerance, Functional Strength, Safety, Balance, Gait, Transfer, Bed Mobility Treatment/Plan Treatment Plan: Continue Plan of Care Treatment Plan: Bed Mobility, Education, Functional Activity Ghulam, Functional Strength, Gait, Safety, Therapeutic Exercise, Transfers Treatment Duration: Sep 24, 2018 Frequency: 6 times per week Estimated Hrs Per Day: .25 hour per day Patient and/or Family Agrees t: Yes Safety Risks/Education Patient Education: Transfer Techniques Teaching Recipient: Patient Response to Teaching: Verbalize Understanding Discharge Recommendations Therapy D/C Recommendations: Physical Therapy Home Care Time/GCodes Time In: 0839 Time Out: 0911 Total Billed Treatment Time: 15 Total Billed Treatment 1, EVMODC x 15' Co-eval with OT for line management. [id number] PT evniharika G Codes Necessary: KEENA Guerra DPStephanie September 11, 2018 12:52
--- NOTE | 2018-09-11 13:08 | History & Physical-Hospitalist ---
History of Present Illness HPI/Chief Complaint CC: Dyspnea HPI: This is a 62yoWM known to me from recent hospital stays, weekly admissions now, who has a h/o morbid obesity maintained in biPAP at home who presented to the ER with fever and wheezing found to have respiratory insufficiency and pneumonia requiring biPAP in ICU along with abx. Overall his prognosis remains very poor without the loss of at least 200# of weight. Currently he is doing better and feels like he is breathing better. Source: patient, old records Exam Limitations: no limitations Date Seen 09/11/18 Time Seen by a Provider: 13:30 Attending Physician Addie Martinez David F MD Referring Physician Date of Admission September 10, 2018 at 14:55 Home Medications & Allergies Home Medications Reviewed patient Home Medication Reconciliation performed by pharmacy medication reconciliations refresh technician and/or nursing. Patients Allergies have been reviewed. Allergies Allergies Coded Allergies Sulfa (Sulfonamide Antibiotics) (Unverified Allergy, Unknown, 03/21/14) latex (Unverified Allergy, Unknown, 03/21/14) raspberry (Unverified Allergy, Unknown, 03/21/14) zinc oxide (Unverified Allergy, Unknown, 03/21/14) Uncoded Allergies ARTIFICIAL SWEETNERS ( Allergy, Unknown, 03/21/14) Past Ajtxwnw-Nixnwa-Ljuuru Hx Past Med/Social Hx: Reviewed Nursing Past Med/Soc Hx, Reviewed and Corrections made Patient Social History Marrital Status: single Employed/Student: unemployed Alcohol Use: Denies Use Recreational Drug Use: No Smoking Status: Former Smoker Type Used: Cigars, Cigarettes 2nd Hand Smoke Exposure: No Recent Foreign Travel: No Contact w/other who traveled: No Recent Hopitalizations: Yes (RELEASED ON THURSDAY) Recent Infectious Disease Expo: No Immunizations Up To Date Tetanus Booster (TDap): Unknown Date of Pneumonia Vaccine: Apr 20, 2016 Date of Influenza Vaccine: Jan 18, 2018 Seasonal Allergies Seasonal Allergies: No Past Medical History Respiratory: Asthma, Sleep Apnea Currently Using CPAP: No Currently Using BIPAP: Yes Cardiac: High Cholesterol, Hypertension Neurological: Neuropathy Musculoskeletal: Arthritis, Fibromyalgia Endocrine: Diabetes, Insulin dep History of Blood Disorders: No Family History Heart Disease, Cancer, CAD Over 55 Years Old, Diabetes, Hypertension, Stroke, Vascular Disease Review of Systems Constitutional: see HPI, weakness EENTM: no symptoms reported Respiratory: cough, dyspnea on exertion, short of breath, wheezing Cardiovascular: no symptoms reported Gastrointestinal: no symptoms reported Genitourinary: no symptoms reported Musculoskeletal: no symptoms reported Skin: no symptoms reported Psychiatric/Neurological: No Symptoms Reported All Other Systems Reviewed Negative Unless Noted: Yes Physical Exam Physical Exam Vital Signs Vital Signs - First Documented 09/10/18 13:57 FiO2 40 Capillary Refill : Less Than 3 Seconds Height, Weight, BMI Height: 5'10.00" Weight: 423lbs. 5.0oz. 192.498219ej; 60.7 BMI Method:Stated General Appearance: WD/WN, Chronically ill, Mild Distress Eyes: Right Eye Normal Inspection, Right Eye PERRL HEENT: PERRL/EOMI, Normal ENT Inspection, Pharynx Normal, Moist Mucous Membranes Neck: Full Range of Motion, Normal Inspection, Non Tender Respiratory: Chest Non Tender, Lungs Clear, Normal Breath Sounds, No Accessory Muscle Use, No Respiratory Distress, Decreased Breath Sounds Cardiovascular: Regular Rate, Rhythm, No Edema, No Gallop, No JVD, No Murmur, Normal Peripheral Pulses Gastrointestinal: Normal Bowel Sounds, No Organomegaly, No Pulsatile Mass, Non Tender, Soft Back: Normal Inspection, No CVA Tenderness, No Vertebral Tenderness Extremity: Normal Capillary Refill, Normal Inspection, Normal Range of Motion, Non Tender, No Calf Tenderness, No Pedal Edema Neurologic/Psychiatric: Alert, Oriented x3, No Motor/Sensory Deficits, Normal Mood/Affect Skin: Normal Color, Warm/Dry, Other (dressing intact lower legs) Lymphatic: No Adenopathy Results Results/Procedures Labs Laboratory Tests 09/10/18 13:40 09/11/18 03:59 Patient resulted labs reviewed. Assessment/Plan Admission Diagnosis Assessment: Acute on chronic respiratory failure s/p biPAP and brought his own biPAP from home today by his friend Pneumonia on Vanc and Zosyn AEAsthma Diastolic CHF EF 60% VENKATA Obesity hypoventilation syndrome Former smoker Chronic leg wounds consulted Dr Galvez Plan: Appreciate Dr Ana Ramey morbid obesity places him at risk for complete decompensation needs 200# weight loss in order to have chance at an improved life. Admission Status: Inpatient Order (span 2 midnights) Reason for Inpatient Admission: Severe respiratory insufficiency Diagnosis/Problems Diagnosis/Problems (1) Acute and chronic respiratory failure with hypoxia Status: Acute (2) Respiratory failure with hypoxia and hypercapnia Status: Acute (3) Pneumonia Status: Acute Qualifiers: Laterality: unspecified laterality Lung location: unspecified part of lung (4) Morbid obesity Status: Chronic (5) Leukocytosis Status: Acute Qualifiers: Leukocytosis type: unspecified Qualified Codes: D72.829 - Elevated white blood cell count, unspecified (6) COPD with acute exacerbation Status: Acute (7) VENKATA on CPAP Status: Chronic (8) Type II diabetes mellitus with complication Status: Chronic (9) Obstructive sleep apnea Status: Chronic (10) Neuropathy Status: Chronic (11) Fibromyalgia Status: Chronic (12) Polypharmacy Status: Chronic Clinical Quality Measures DVT/VTE Risk/Contraindication: Risk Factor Score Per Nursin RFS Level Per Nursing on Admit: 3=High ADDIE MARTINEZ DO September 11, 2018 13:08
[2018-09-11] MEDS: LIDOCAINE 4% (SALONPAS) PATCH TOP PRN (13:22)
--- NOTE | 2018-09-11 15:34 | Wound Care Assessment ---
Wound Care Assessment Date Seen by Provider: September 11, 2018 Time Seen by Provider: 15:10 Chief Complaint R great toe and bilateral calf ulcers. HPI The patient is a 62 year old male with bilateral calf ulcerations due to lymphedema and venous insufficiency and a R great toe ulcer due to diabetes. These are chronic non-healing ulcers, and in view of his multiple co- morbidities, are unlikely to ever heal. The wounds remain stable with current dressings, by report, and the continuation of these is ordered. Past Medical History: Admits Diabetes Type II, Admits Heart Disease (Congestive Heart Failure.) Obstructive Sleep Apnea, Pneumonia, Fibromyalgia, Neuropathy, Severe Morbid Obesity. Smoking Status: Former Smoker Recreational Drug Use: No Alcohol Use: Denies Use Other Social Hx Lives by himself with Home Health services. Review of Systems Pulmonary: Dyspnea Cardiovascular: No: Chest Pain Musculoskeletal: No: leg pain Exam Vital Signs Date Time Temp Pulse Resp B/P (MAP) Pulse Ox O2 Delivery O2 Flow Rate FiO2 09/11/18 14:52 94 Vapotherm 20.00 35 09/11/18 12:00 98.2 92 22 141/78 (99) Capillary Refill : Less Than 3 Seconds General Appearance: mild distress HEENT: normal ENT inspection Neck: normal inspection Cardiovascular: regular rate, rhythm Respiratory: crackles (at bases) Gastrointestinal: normal bowel sounds, non tender, distended (Globular, massive.) Extremities: other (Bilateral intact leg dressings.) Results Laboratory Tests 09/10/18 17:50: Glucometer 82 09/10/18 23:49: Glucometer 200H 09/11/18 03:38: Blood Gas Puncture Site LEFT RADIAL, Blood Gas Patient Temperature 96.8, Arterial Blood pH 7.43, Arterial Blood Partial Pressure CO2 40, Arterial Blood Partial Pressure O2 74L, Arterial Blood HCO3 26, Arterial Blood Total CO2 27.2, Arterial Blood Oxygen Saturation 95, Arterial Blood Base Excess 1.8, Vitaly Test POSITIVE, Blood Gas Ventilator Setting YES, Blood Gas Inspired Oxygen 25% BIPAP 09/11/18 03:59: White Blood Count 16.3H, Red Blood Count 4.74, Hemoglobin 12.8L, Hematocrit 40, Mean Corpuscular Volume 84, Mean Corpuscular Hemoglobin 27, Mean Corpuscular Hemoglobin Concent 32, Red Cell Distribution Width 18.9H, Platelet Count 213, Mean Platelet Volume 10.7H, Neutrophils (%) (Auto) 98H, Lymphocytes (%) (Auto) 2L, Monocytes (%) (Auto) 1, Eosinophils (%) (Auto) 0, Basophils (%) (Auto) 0, Neutrophils # (Auto) 15.9H, Lymphocytes # (Auto) 0.3L, Monocytes # (Auto) 0.1, Eosinophils # (Auto) 0.0, Basophils # (Auto) 0.0, Sodium Level 140, Potassium Level 3.7, Chloride Level 102, Carbon Dioxide Level 22, Anion Gap 16H, Blood Urea Nitrogen 18, Creatinine 1.05, Estimat Glomerular Filtration Rate > 60, BUN/Creatinine Ratio 17, Glucose Level 252H, Calcium Level 9.1, Phosphorus Level 2.7, Magnesium Level 1.7L, Aspartate Amino Transf (AST/SGOT) 19, Alanine Aminotransferase (ALT/SGPT) 15, Albumin 3.4 09/11/18 12:08: Glucometer 244H Microbiology 09/10/18 Blood Culture - Preliminary, Resulted Group B Streptococci 09/10/18 Influenza Types A,B Antigen (EDUARD) - Final, Complete 09/10/18 Urine Culture - Final, Complete NO GROWTH Microbiology 09/10/18 Blood Culture - Preliminary, Resulted Group B Streptococci 09/10/18 Blood Culture - Preliminary, Resulted Group B Streptococci 09/10/18 Influenza Types A,B Antigen (EDUARD) - Final, Complete 09/10/18 Urine Culture - Final, Complete NO GROWTH Assessment/Plan/Dx 1. Diabetic foot ulcer, R great toe, Shane Grade 2. 2. Bilateral calf ulcers, full thickness, combined venous and lymphedema etiology. 3. Morbid obesity, obstructive sleep apnea, dismobility. 4. Pneumonia. Plan: Continue previous dressing changes. Orders are written. Will follow. ALFONSO ESTRADA MD September 11, 2018 15:34
[2018-09-11] MEDS: ACETAMINOPHEN 500 MG TAB (TYLENOL) PO SCH ×2 (16:55→20:28)
[2018-09-11] MEDS: glipiZIDE 5 MG (GLUCOTROL) TAB PO SCH (16:56)
[2018-09-11] MEDS: DULoxetine 30 MG (CYMBALTA) CAP PO SCH (16:59)
[2018-09-11] MEDS: MULTIVIT W/MINERALS TAB (THERAGRAN M) PO SCH (17:01)
[2018-09-11] MEDS ORDERED: FUROSEMIDE 20 MG (LASIX) TAB PO SCH (18:00)
[2018-09-11] MEDS: morphine INJ 4 MG/ML 1 ML (VIAL/SYRINGE) IVP PRN (18:08)
[2018-09-11] MEDS: DOXEPIN 25 MG (SINEquan) CAP PO SCH (20:28)
[2018-09-11] MEDS: ATORVASTATIN 40 MG (LIPITOR) TABLET PO SCH (20:28)
[2018-09-11] MEDS ORDERED: NON-FORMULARY MEDICATION 1 EA EA (Budesonide/Formoterol Fumarate (Symbicort 160-4.5 Mcg In INH SCH (21:00)
[2018-09-12] VITALS: BP 129/91
[2018-09-12] MEDS: inSUlin ASPART (NovoLOG) 1 UNIT/0.01 ML (CHARGE PER UNIT) SC SCH ×4 (00:29→18:56)
[2018-09-12] MEDS ORDERED: TROUGH ORDER-PHARMACY XX NR ×2 (02:00→13:30)
[2018-09-12] MEDS: VANCOMYCIN 2,500 MG/NS 500 ML IVPB IV SCH ×2 (02:27)
[2018-09-12] MEDS: RT-ALBUTEROL/IPRATROPIUM 3 ML (DUONEB) VIAL IH SCH ×6 (02:30→21:49)
[2018-09-12 04:43] VITALS: BP 146/92
[2018-09-12] MEDS: PIPERACILLIN/TAZO 4.5 GM/NS 100 ML IV SCH ×6 (05:52→20:19)
[2018-09-12] MEDS: glipiZIDE 5 MG (GLUCOTROL) TAB PO SCH ×2 (05:53→16:48)
[2018-09-12] MEDS ORDERED: POTASSIUM CL 10MEQ/50ML IVPB 50 ML IV SCH (06:00)
[2018-09-12] MEDS ORDERED: MAGNESIUM 1 GM/100 ML IVPB 100 ML IV SCH (06:00)
[2018-09-12] MEDS ORDERED: KCL 20 MEQ TAB (K-DUR) PO SCH (06:00)
[2018-09-12] MEDS: RT-ADVAIR HFA 115/21 MCG PER PUFF IH SCH ×2 (07:14→18:54)
--- NOTE | 2018-09-12 07:18 | NUR ---
Vancomycin - Trough 24.7, repeat trough 08/13 @ 1330. Will re-dose or continue to hold pending trough result.
[2018-09-12 08:47] VITALS: BP 139/96
[2018-09-12] MEDS ORDERED: FUROSEMIDE 40 MG/4 ML INJ (LASIX) IVP SCH (09:00)
[2018-09-12] MEDS: DULoxetine 30 MG (CYMBALTA) CAP PO SCH (09:58)
[2018-09-12] MEDS: KCL 20 MEQ TAB (K-DUR) PO SCH (09:59)
[2018-09-12] MEDS: FINASTERIDE (PROSCAR) 5 MG TAB PO SCH (09:59)
[2018-09-12] MEDS: LORATADINE (CLARITIN) 10 MG TAB PO SCH (09:59)
[2018-09-12] MEDS: meTOprolol TARTRATE 50 MG (LOPRESSOR) TAB PO SCH ×2 (09:59→20:11)
[2018-09-12] MEDS: ASPIRIN E.C. 325 MG (ECOTRIN) TABLET PO SCH (09:59)
[2018-09-12] MEDS: ACETAMINOPHEN 500 MG TAB (TYLENOL) PO SCH ×3 (09:59→20:17)
[2018-09-12] MEDS: PREGABALIN 100 MG (LYRICA) CAPSULE PO SCH ×3 (10:00→20:11)
[2018-09-12] MEDS: MULTIVIT W/MINERALS TAB (THERAGRAN M) PO SCH (10:00)
[2018-09-12] MEDS: LIDOCAINE 4% (SALONPAS) PATCH TOP PRN (10:00)
[2018-09-12] MEDS: methylPREDNISolone 40 MG/ML (Solu-MEDROL) VIAL IV SCH ×2 (10:03→20:12)
[2018-09-12] MEDS: A & D OINT 113 GM TUBE TOP SCH (10:04)
--- NOTE | 2018-09-12 11:24 | Progress Note-Hospitalist ---
Subjective HPI/CC On Admission Date Seen by Provider: September 12, 2018 Time Seen by Provider: 12:15 CC: Dyspnea HPI: This is a 62yoWM known to me from recent hospital stays, weekly admissions now, who has a h/o morbid obesity maintained in biPAP at home who presented to the ER with fever and wheezing found to have respiratory insufficiency and pneumonia requiring biPAP in ICU along with abx. Overall his prognosis remains very poor without the loss of at least 200# of weight. Currently he is doing better and feels like he is breathing better. Subjective/Events-last exam Patient doing well No pain is reported Checked meds and labs Gonzalez cath in place Eating and drinking ok Home meds restarted yesterday Poor prognosis overall May need trach and LTAC? Review of Systems Pulmonary: Dyspnea Focused Exam Lactate Level 09/10/18 13:40: Lactic Acid Level 1.53 Objective Exam Vital Signs Vital Signs Date Time Temp Pulse Resp B/P (MAP) Pulse Ox O2 Delivery O2 Flow Rate FiO2 09/12/18 14:38 94 Vapotherm 20.00 30 09/12/18 12:00 97.2 91 22 134/95 (108) Capillary Refill : Less Than 3 Seconds General Appearance: No Apparent Distress, WD/WN, Chronically ill HEENT: PERRL/EOMI, Normal ENT Inspection, Pharynx Normal, Moist Mucous Mem branes Neck: Full Range of Motion, Normal Inspection, Non Tender Respiratory: Chest Non Tender, Lungs Clear, Normal Breath Sounds, No Accessory Muscle Use, No Respiratory Distress, Decreased Breath Sounds Cardiovascular: Regular Rate, Rhythm, No Edema, No Gallop, No JVD, No Murmur, Normal Peripheral Pulses Gastrointestinal: Normal Bowel Sounds, No Organomegaly, No Pulsatile Mass, Non Tender, Soft Back: Normal Inspection, No CVA Tenderness, No Vertebral Tenderness Extremity: Normal Capillary Refill, Normal Inspection, Normal Range of Motion, Non Tender, No Calf Tenderness, No Pedal Edema Neurologic/Psychiatric: Alert, Oriented x3, No Motor/Sensory Deficits, Normal Mood/Affect Skin: Normal Color, Warm/Dry, Other (dressing intact lower legs) Lymphatic: No Adenopathy Results/Procedures Lab Laboratory Tests 09/12/18 13:45 Patient resulted labs reviewed. Assessment/Plan Assessment and Plan Assess & Plan/Chief Complaint Assessment: Acute on chronic respiratory failure s/p biPAP and brought his own biPAP from home yesterday by his friend Pneumonia on Vanc and Zosyn AEAsthma Diastolic CHF EF 60% VENKATA Obesity hypoventilation syndrome Former smoker Chronic leg wounds consulted Dr Leonor Gonzalez cath in place Plan: Appreciate Dr Ana Ramey morbid obesity places him at risk for complete decompensation needs 200# w eight loss in order to have chance at an improved life. Diagnosis/Problems Diagnosis/Problems (1) Acute and chronic respiratory failure with hypoxia Status: Acute (2) Respiratory failure with hypoxia and hypercapnia Status: Acute (3) Pneumonia Status: Acute Qualifiers: Laterality: unspecified laterality Lung location: unspecified part of lung (4) Morbid obesity Status: Chronic (5) Leukocytosis Status: Acute Qualifiers: Leukocytosis type: unspecified Qualified Codes: D72.829 - Elevated white blood cell count, unspecified (6) COPD with acute exacerbation Status: Acute (7) VENKATA on CPAP Status: Chronic (8) Type II diabetes mellitus with complication Status: Chronic (9) Obstructive sleep apnea Status: Chronic (10) Neuropathy Status: Chronic (11) Fibromyalgia Status: Chronic (12) Polypharmacy Status: Chronic Clinical Quality Measures DVT/VTE Risk/Contraindication: Risk Factor Score Per Nursin RFS Level Per Nursing on Admit: 3=High JEROD BRAUN DO September 12, 2018 11:24
[2018-09-12 12:00] VITALS: BP 134/95
[2018-09-12 14:00] LABS: BASOPHILS % (AUTO) 0 % (0-10); EOSINOPHILS % (AUTO) 0 % (0-10); HEMATOCRIT 40 % (40-54); HEMOGLOBIN 12.8 G/DL (13.3-17.7); LYMPHOCYTES # (AUTO) 0.3 X 10^3 (1.0-4.0); LYMPHOCYTES % (AUTO) 3 % (12-44); MEAN CORPUSCULAR HEMOGLOBIN 28 PG (25-34); MEAN CORPUSCULAR HGB CONC 32 G/DL (32-36); MEAN CORPUSCULAR VOLUME 86 FL (80-99); MEAN PLATELET VOLUME 10.8 FL (7.4-10.4); MONOCYTES # (AUTO) 0.4 X 10^3 (0.0-1.0); MONOCYTES % (AUTO) 4 % (0-12); NEUTROPHILS # (AUTO) 9.9 X 10^3 (1.8-7.8); NEUTROPHILS % (AUTO) 93 % (42-75); PLATELET COUNT 213 10^3/uL (130-400); WHITE BLOOD COUNT 10.7 10^3/uL (4.3-11.0)
[2018-09-12 14:16] LABS: ALANINE AMINOTRANSFERASE 27 U/L (0-55); ALBUMIN 3.8 GM/DL (3.2-4.5); ALKALINE PHOSPHATASE 97 U/L (40-136); BILIRUBIN,TOTAL 0.8 MG/DL (0.1-1.0); BUN/CREATININE RATIO 21; CALCIUM 9.6 MG/DL (8.5-10.1); CARBON DIOXIDE 28 MMOL/L (21-32); CHLORIDE 102 MMOL/L (98-107); CREATININE SERUM 1.16 MG/DL (0.60-1.30); GFR ESTIMATED > 60; GLUCOSE 269 MG/DL (70-105); POTASSIUM 4.3 MMOL/L (3.6-5.0); SODIUM 140 MMOL/L (135-145); TOTAL PROTEIN 6.9 GM/DL (6.4-8.2)
[2018-09-12 16:29] VITALS: BP 136/89
--- NOTE | 2018-09-12 16:54 | NUR ---
Vanco Trough - 16.2, will resume Vanco at 1750mg every 12 hours. Repeat trough on 09/14 0500.
[2018-09-12] MEDS: VANCOMYCIN 1,750 MG/NS 500 ML IVPB IV SCH ×2 (17:44)
[2018-09-12 19:28] VITALS: BP 139/81
[2018-09-12] MEDS: ATORVASTATIN 40 MG (LIPITOR) TABLET PO SCH (20:11)
[2018-09-12] MEDS: DOXEPIN 25 MG (SINEquan) CAP PO SCH (20:12)
[2018-09-13] VITALS (10 sets, daily range): BP systolic 135–193; BP diastolic 92–116
[2018-09-13] MEDS: inSUlin ASPART (NovoLOG) 1 UNIT/0.01 ML (CHARGE PER UNIT) SC SCH ×4 (00:22→18:00)
[2018-09-13] MEDS: RT-ALBUTEROL/IPRATROPIUM 3 ML (DUONEB) VIAL IH SCH ×6 (02:43→23:21)
[2018-09-13] MEDS ORDERED: NON-FORMULARY MEDICATION 1 EA EA (Polyethylene Glycol 3350 (Miralax) 17 GM) PO SCH (04:00)
[2018-09-13] MEDS: PIPERACILLIN/TAZO 4.5 GM/NS 100 ML IV SCH ×6 (04:24→21:22)
[2018-09-13] MEDS: meTOprolol 5 MG/5 ML (LOPRESSOR) VIAL IV PRN (04:24)
[2018-09-13] MEDS: VANCOMYCIN 1,750 MG/NS 500 ML IVPB IV SCH ×2 (06:11)
[2018-09-13] MEDS: glipiZIDE 5 MG (GLUCOTROL) TAB PO SCH ×2 (06:11→17:42)
[2018-09-13] MEDS: methylPREDNISolone 40 MG/ML (Solu-MEDROL) VIAL IV SCH (08:11)
[2018-09-13] MEDS: ASPIRIN E.C. 325 MG (ECOTRIN) TABLET PO SCH (08:11)
[2018-09-13] MEDS: DULoxetine 30 MG (CYMBALTA) CAP PO SCH (08:12)
[2018-09-13] MEDS: LORATADINE (CLARITIN) 10 MG TAB PO SCH (08:12)
[2018-09-13] MEDS: meTOprolol TARTRATE 50 MG (LOPRESSOR) TAB PO SCH ×2 (08:13→21:25)
[2018-09-13] MEDS: KCL 20 MEQ TAB (K-DUR) PO SCH (08:13)
[2018-09-13] MEDS: ACETAMINOPHEN 500 MG TAB (TYLENOL) PO SCH ×3 (08:13→21:23)
[2018-09-13] MEDS: FINASTERIDE (PROSCAR) 5 MG TAB PO SCH (08:14)
[2018-09-13] MEDS: PREGABALIN 100 MG (LYRICA) CAPSULE PO SCH ×3 (08:14→21:25)
[2018-09-13] MEDS: A & D OINT 113 GM TUBE TOP SCH (08:15)
[2018-09-13] MEDS: MULTIVIT W/MINERALS TAB (THERAGRAN M) PO SCH (08:15)
[2018-09-13] MEDS: LIDOCAINE 4% (SALONPAS) PATCH TOP PRN (08:16)
[2018-09-13] MEDS: RT-ADVAIR HFA 115/21 MCG PER PUFF IH SCH ×2 (08:47→18:52)
--- NOTE | 2018-09-13 08:56 | Pulmonary Progress Note ---
Subjective Time Seen by a Provider: 08:00 Subjective/Events-last exam Pt currently on BiPAP Sepsis Event Evaluation Height, Weight, BMI Height: " Weight: 453lbs. 12.8oz. 205.401562wd; 60.7 BMI Method:Stated Focused Exam Lactate Level 09/10/18 13:40: Lactic Acid Level 1.53 Exam Exam Vital Signs Date Time Temp Pulse Resp B/P (MAP) Pulse Ox O2 Delivery O2 Flow Rate FiO2 09/13/18 08:47 97 Vapotherm 20.00 30 09/13/18 08:37 97.0 80 25 186/107 (133) 100 NIV Bilevel 09/13/18 07:28 98 NIV Bilevel 09/13/18 07:28 75 16 98 35.00 09/13/18 04:57 86 17 95 35.00 09/13/18 04:40 96.7 84 20 193/116 (141) 98 09/13/18 02:44 92 15 95 35.00 09/13/18 00:56 96.0 72 18 161/98 (119) 94 09/13/18 00:15 77 13 93 35.00 09/12/18 21:50 92 26 95 35.00 09/12/18 20:48 Vapotherm 25.00 09/12/18 19:28 96.4 81 16 139/81 (100) 92 09/12/18 18:54 92 Vapotherm 20.00 30 09/12/18 16:29 96.6 77 20 136/89 (105) 95 09/12/18 14:38 94 Vapotherm 20.00 30 09/12/18 12:00 97.2 91 22 134/95 (108) 94 Vapotherm 30.00 20.00 09/12/18 10:42 95 Vapotherm 20.00 30 I & O 09/13/18 07:00 Intake Total 3085.0 ml Output Total 1850 ml Balance 1235.0 ml Height & Weight Height: '" Weight: 453lbs. 12.8oz. 205.083077vh; 60.7 BMI Method:Stated General Appearance: No Apparent Distress, WD/WN, Chronically ill HEENT: PERRL/EOMI, Normal ENT Inspection, Pharynx Normal, Moist Mucous Membranes Neck: Full Range of Motion, Normal Inspection, Non Tender Respiratory: Chest Non Tender, Lungs Clear, Normal Breath Sounds, No Accessory Muscle Use, No Respiratory Distress, Decreased Breath Sounds Cardiovascular: Regular Rate, Rhythm, No Edema, No Gallop, No JVD, No Murmur, Normal Peripheral Pulses Capillary Refill: Less Than 3 Seconds Gastrointestinal: distended (markedly obese), tenderness Extremity: Normal Capillary Refill, Normal Inspection, Normal Range of Motion, Non Tender, No Calf Tenderness, No Pedal Edema Neurologic/Psychiatric: Alert, Oriented x3, No Motor/Sensory Deficits, Normal Mood/Affect Skin: Normal Color, Warm/Dry, Other (dressing intact lower legs) Lymphatic: No Adenopathy Results Lab Laboratory Tests 09/12/18 13:45 Assessment/Plan Assessment/Plan Acute on chronic respiratory failure -Trial off BIPAP to Vapotherm -Pt has home BiPAP -Secondary to his insurance we will not be able to get home vent to mask -ABG 54 Pneumonia- cultures show strep -Continue Zosyn D/C Vancomycin -Reyes cultures pending -MRSA nasal swab is neg RLD -Last PFT was 07/2018 - Shows severe RLD with asthma and decreased DLCO AsthmaAE -Solumedrol, SVNS, Advair, Singulair, Claritin -Pt uses symbicort and proair as out patient -Pt has a nebulizer at home with Duoneb Diastolic CHF EF 60% -Continue home Lasix OHS/VENKATA -PT has BiPAP with 2 liters of oxygen -Last BiPAP down load 08/2018 -AHI 2.1 -Does shows compliance -Pt states the last time he was in hospital he was sent home with a different BiPAP machine. Once someone brings his machine in I'll have the DME look at it and get a new down load. Tobacco use - quit in 1991 Chronic leg wounds - known to Wound care clinic -Wound care is consulted TAMIKA HILARIO DO September 13, 2018 08:56
--- NOTE | 2018-09-13 08:56 | Pulmonary Progress Note ---
Subjective Date Seen by a Provider: September 12, 2018 (Late note for 09/12 today is 09/13 ) Time Seen by a Provider: 09:58 Subjective/Events-last exam Pt appears to be doing better. Sepsis Event Evaluation Height, Weight, BMI Height: " Weight: 453lbs. 12.8oz. 205.520583eb; 60.7 BMI Method:Stated Focused Exam Lactate Level 09/10/18 13:40: Lactic Acid Level 1.53 Exam Exam Vital Signs Date Time Temp Pulse Resp B/P (MAP) Pulse Ox O2 Delivery O2 Flow Rate FiO2 09/13/18 08:47 97 Vapotherm 20.00 30 09/13/18 08:37 97.0 80 25 186/107 (133) 100 NIV Bilevel 09/13/18 07:28 98 NIV Bilevel 09/13/18 07:28 75 16 98 35.00 09/13/18 04:57 86 17 95 35.00 09/13/18 04:40 96.7 84 20 193/116 (141) 98 09/13/18 02:44 92 15 95 35.00 09/13/18 00:56 96.0 72 18 161/98 (119) 94 09/13/18 00:15 77 13 93 35.00 09/12/18 21:50 92 26 95 35.00 09/12/18 20:48 Vapotherm 25.00 09/12/18 19:28 96.4 81 16 139/81 (100) 92 09/12/18 18:54 92 Vapotherm 20.00 30 09/12/18 16:29 96.6 77 20 136/89 (105) 95 09/12/18 14:38 94 Vapotherm 20.00 30 09/12/18 12:00 97.2 91 22 134/95 (108) 94 Vapotherm 30.00 20.00 09/12/18 10:42 95 Vapotherm 20.00 30 I & O 09/13/18 07:00 Intake Total 3085.0 ml Output Total 1850 ml Balance 1235.0 ml Height & Weight Height: " Weight: 453lbs. 12.8oz. 205.411641mn; 60.7 BMI Method:Stated General Appearance: No Apparent Distress, WD/WN, Chronically ill HEENT: PERRL/EOMI, Normal ENT Inspection, Pharynx Normal, Moist Mucous Membranes Neck: Full Range of Motion, Normal Inspection, Non Tender Respiratory: Chest Non Tender, Lungs Clear, Normal Breath Sounds, No Accessory Muscle Use, No Respiratory Distress, Decreased Breath Sounds Cardiovascular: Regular Rate, Rhythm, No Edema, No Gallop, No JVD, No Murmur, Normal Peripheral Pulses Capillary Refill: Less Than 3 Seconds Gastrointestinal: distended (markedly obese), tenderness Extremity: Normal Capillary Refill, Normal Inspection, Normal Range of Motion, Non Tender, No Calf Tenderness, No Pedal Edema Neurologic/Psychiatric: Alert, Oriented x3, No Motor/Sensory Deficits, Normal Mood/Affect Skin: Normal Color, Warm/Dry, Other (dressing intact lower legs) Lymphatic: No Adenopathy Results Lab Laboratory Tests 09/12/18 13:45 Assessment/Plan Assessment/Plan Acute on chronic respiratory failure -Trial off BIPAP to Vapotherm -Pt has home BiPAP -Secondary to his insurance we will not be able to get home vent to mask -ABG 54 Pneumonia -Continue Vancomycin and Zosyn -Reyes cultures pending -MRSA nasal swab pending RLD -Last PFT was 07/2018 - Shows severe RLD with asthma and decreased DLCO AsthmaAE -Solumedrol, SVNS, Advair, Singulair, Claritin -Pt uses symbicort and proair as out patient -Pt has a nebulizer at home with Duoneb Diastolic CHF EF 60% -Continue home Lasix OHS/VENKATA -PT has BiPAP with 2 liters of oxygen -Last BiPAP down load 08/2018 -AHI 2.1 -Does shows compliance -Pt states the last time he was in hospital he was sent home with a different BiPAP machine. Once someone brings his machine in I'll have the DME look at it and get a new down load. Tobacco use - quit in 1991 Chronic leg wounds - known to Wound care clinic -Wound care is consulted TAMIKA HILARIO DO September 13, 2018 08:56
[2018-09-13] MEDS ORDERED: methylPREDNISolone 40 MG/ML (Solu-MEDROL) VIAL IV SCH (09:00)
--- NOTE | 2018-09-13 10:30 | NUR ---
DR BUCIO NOTIFIED OF PT BP 135/110. ORDER RECEIVED TO GIVE LISINOPRIL 20MG NOW AND TO START DAILY.
[2018-09-13] MEDS ORDERED: lisINopril 20 MG (PRINIVIL) TABLET PO SCH (11:00)
--- NOTE | 2018-09-13 11:31 | Occupational Ther Daily Note ---
OT Current Status-Daily Note Subjective Pt sitting in chair, agrees to therapy. Pt reports generalized pain. Mental Status/Objective Therapy Code Descriptions/Definitions Functional [place] Measure: 0=Not Assessed/NA 4=Minimal Assistance 1=Total Assistance 5=Supervision or Setup 2=Maximal Assistance 6=Modified [place] 3=Moderate Assistance 7=Complete [place] ADL-Treatment Pt supine to sit with moderate assistance. Pt able to bring LE to EOB, but has difficulty raising trunk. Pt sat EOB for rest break once sitting. Pt sit to stand with CGA. Transfer to chair with minimal assistance for balance. Pt requ ires cues for safety. Pt has decreased activity tolerance. Pt is on vapotherm and sats are 95% after transfer to chair. Pt positioned in chair with needs met after session,RN present. OT Short Term Goals Short Term Goals Transfers (B,C,W/C) (FIM): 6 1=Demonstrate adherence to instructed precautions during ADL tasks. 2=Patient will verbalize/demonstrate understanding of assistive devices/modifications for ADL. 3=Patient will improve strength/tolerance for activity to enable patient to perform ADL's. OT Mcfp Goals Instrument Tester Goals Time Frame: Sep 25, 2018 Bathing(FIM): 5 Upper Body Dressing(FIM): 5 Lower Body Dressing(FIM): 5 Toileting(FIM): 5 Toilet/Commode Transfer(FIM): 5 Additional Goals: 1-Demonstrate ADL Tasks, 2-Verbalize Understanding, 3- ImproveStrength/Ghulam 1=Demonstrate adherence to instructed precautions during ADL tasks. 2=Patient will verbalize/demonstrate understanding of assistive devices/modifications for ADL. 3=Patient will improve strength/tolerance for activity to enable patient to perform ADL's. OT Education/Plan Problem List/Assessment Pt to benefit from skilled OT intervention for ADL training, transfers, str engthening, and safety education to increase level of independence and allow safe discharge. Discharge Recommendations Plan/Recommendations: Continue POC Treatment Plan/Plan of Care Patient would benefit from OT for education, treatment and training to promote independence in ADL's, mobility, safety and/or upper extremity function for ADL's. Plan of Care: ADL Retraining, Functional Mobility, UE Funct Exercise/Act Treatment Duration: Sep 25, 2018 Frequency: 5 times per week Estimated Hrs Per Day: .25 hour per day Rehab Potential: Good Time/GCodes Start Time: 11:00 Stop Time: 11:23 Total Time Billed (hr/min): 23 Billed Treatment Time 1 visit, FAx2(23minutes) DORENE GILLESPIE OT September 13, 2018 11:30
--- NOTE | 2018-09-13 12:27 | Progress Note (SOAP) ---
Subjective Subjective/Events-last exam Afebrile, no acute events. States he has pain all over. Review of Systems Date Seen by Provider: September 13, 2018 Time Seen by Provider: 11:25 Focused Exam Lactate Level 09/10/18 13:40: Lactic Acid Level 1.53 Objective Exam Last Set of Vital Signs Vital Signs Date Time Temp Pulse Resp B/P (MAP) Pulse Ox O2 Delivery O2 Flow Rate FiO2 09/13/18 12:07 93 Vapotherm 20.00 30 09/13/18 08:37 97.0 80 25 186/107 (133) Capillary Refill : Less Than 3 Seconds I&O Intake and Output 09/13/18 00:00 Intake Total 2347.5 ml Output Total 1850 ml Balance 497.5 ml Intake Oral 1470 ml IV Total 877.5 ml Output Urine Total 1850 ml General: Alert, No Acute Distress Lungs: Other (decreased air movement) Heart: Regular Rate, No Murmurs Extremities: Other Neuro: Normal Speech Results/Procedures Lab Laboratory Tests 09/12/18 12:34: Glucometer 270H 09/12/18 13:45: White Blood Count 10.7, Red Blood Count 4.65, Hemoglobin 12.8L, Hematocrit 40, Mean Corpuscular Volume 86, Mean Corpuscular Hemoglobin 28, Mean Corpuscular Hemoglobin Concent 32, Red Cell Distribution Width 19.0H, Platelet Count 213, Mean Platelet Volume 10.8H, Neutrophils (%) (Auto) 93H, Lymphocytes (%) (Auto) 3L, Monocytes (%) (Auto) 4, Eosinophils (%) (Auto) 0, Basophils (%) (Auto) 0, Neutrophils # (Auto) 9.9H, Lymphocytes # (Auto) 0.3L, Monocytes # (Auto) 0.4, Eosinophils # (Auto) 0.0, Basophils # (Auto) 0.0, Sodium Level 140, Potassium Level 4.3, Chloride Level 102, Carbon Dioxide Level 28, Anion Gap 10, Blood Urea Nitrogen 24H, Creatinine 1.16, Estimat Glomerular Filtration Rate > 60, BUN/Creatinine Ratio 21, Glucose Level 269H, Calcium Level 9.6, Corrected Calcium 9.8, Total Bilirubin 0.8, Aspartate Amino Transf (AST/SGOT) 34, Alanine Aminotransferase (ALT/SGPT) 27, Alkaline Phosphatase 97, Total Protein 6.9, Albumin 3.8, Vancomycin Level Trough 16.2 09/12/18 18:43: Glucometer 197H 09/12/18 21:07: Glucometer 252H 09/13/18 00:04: Glucometer 201H 09/13/18 05:38: Glucometer 203H 09/13/18 12:13: Glucometer 178H Microbiology 09/10/18 Blood Culture - Final, Complete Strep agalactiae Group B 09/10/18 MRSA Screen - Final, Complete MRSA not isolated 09/10/18 Urine Culture - Final, Complete NO GROWTH Assessment/Plan Assessment/Plan (1) Type II diabetes mellitus with complication Status: Chronic Assessment & Plan: Diabetic diet, glipizide, insulin. Qualifiers: Qualified Codes: E11.8 - Type 2 diabetes mellitus with unspecified complications; Z79.4 - senior living (current) use of insulin (2) Acute and chronic respiratory failure with hypoxia Status: Acute Assessment & Plan: Pulm following, appreciate recommendations. Echo done 08/29/18 with normal EF and diastolic parameters. On furosemide chronically. Using bipap and vapotherm. (3) Pneumonia Status: Acute Assessment & Plan: On zosyn and vancomycin (4) Bacteremia due to group B Streptococcus Status: Acute Assessment & Plan: Positive blood cultures, covered with zosyn. (5) COPD with acute exacerbation Status: Acute Assessment & Plan: Pulm consulted, on solumedrol, Advair and duonebs. (6) Fibromyalgia Status: Chronic (7) VENKATA on CPAP Status: Chronic (8) Chronic cutaneous venous stasis ulcer Status: Chronic Assessment & Plan: Wound care consulted, dressing changes per recommendations. (9) DVT prophylaxis Status: Acute Assessment & Plan: Enoxaparin Clinical Quality Measures DVT/VTE Risk/Contraindication: Risk Factor Score Per Nursin RFS Level Per Nursing on Admit: 3=High JOHN BUCIO MD September 13, 2018 12:27
--- NOTE | 2018-09-13 13:12 | NUR ---
DR BUCIO NOTIFIED OF PT BP 135/100. LISINOPRIL WAS GIVEN AT 1123
--- NOTE | 2018-09-13 14:43 | Physical Therapy Daily Note ---
PT Daily Note-Current Subjective Patient in recliner pre tx, agrees to PT, has no complaints of pain. Patient states he would prefer to stay in the recliner for now, does not want to get back to the bed yet. He agrees to exercises sitting. Appearance Patient in recliner post tx with nurse call, phone, tray, legs elevated and on pillows. Mental Status Patient Orientation: Person, Place, Situation Attachments: Oxygen, Gonzalez Catheter, IV Transfers Therapy Code Descriptions/Definitions Functional [place] Measure: 0=Not Assessed/NA 4=Minimal Assistance 1=Total Assistance 5=Supervision or Setup 2=Maximal Assistance 6=Modified [place] 3=Moderate Assistance 7=Complete [place] Therapy Quality Codes: 6 Independent with activity with or without an assistive device 5 Patient requires set up or clean up by helper. Patient completes activity by themselves 4 Supervision or touching assist (CGA). [place] provide cues , steadying assist 3 The helper provides less than half the effort to complete the activity 2 The helper provides more than half the effort to complete the activity 1 Dependent. The helper does all the effort to complete an activity 7 Patient refused to complete or attempt activity 9 The patient did not perform the activity before the current illness or injury 88 Not attempted due to Medical conditions or safety concerns Weight Bearing Right Lower Extremity: Right Full Weight Bearing Left Lower Extremity: Left Full Weight Bearing Exercises Supine Ex: Quad Set, Glut sets Seated Therapy Exercises: Ankle pumps, Long arc quads, Hip abd/add Seated Reps: 15 the supine exercises above were actually performed while in the recliner with legs elevated. Treatments LE exercise Assessment Current Status: Fair Progress improving LE strength PT Short Term Goals Short Term Goals Time Frame: September 17, 2018 Transfers (B,C,W/C) (FIM): 6 PT Jail Goals Jail Goals PT Kitchen Food Assembler Goals Time Frame: Sep 24, 2018 Gait (FIM): 5 Gait distance (FIM): 5=943-37 ft Distance: 75 Gait Level of Assist: 6 Gait Assistive Device: FWW PT Plan Problem List Problem List: Activity Tolerance, Functional Strength, Safety, Balance, Gait, Transfer, Bed Mobility, ROM Treatment/Plan Treatment Plan: Continue Plan of Care Treatment Plan: Bed Mobility, Education, Functional Activity Ghulam, Functional Strength, Gait, Safety, Therapeutic Exercise, Transfers Treatment Duration: Sep 24, 2018 Frequency: 6 times per week Estimated Hrs Per Day: .25 hour per day Patient and/or Family Agrees t: Yes Safety Risks/Education Patient Education: Correct Positioning, Safety Issues Teaching Recipient: Patient Teaching Methods: Demonstration, Discussion Response to Teaching: Reinforcement Needed Time/GCodes Time In: 1425 Time Out: 1435 Total Billed Treatment Time: 10 Total Billed Treatment 1 visit EX Pratima' LEA LOPEZ PT September 13, 2018 14:43
[2018-09-13] MEDS: DOXEPIN 25 MG (SINEquan) CAP PO SCH (21:24)
[2018-09-13] MEDS: ATORVASTATIN 40 MG (LIPITOR) TABLET PO SCH (21:25)
[2018-09-13] MEDS: POLYETHYLENE GLYCOL 17 GM (MIRALAX) PACK PO SCH (21:27)
[2018-09-13] MEDS ORDERED: PHARMACY TO DOSE SQ SCH (21:30)
[2018-09-13] MEDS: morphine INJ 4 MG/ML 1 ML (VIAL/SYRINGE) IVP PRN (23:19)
[2018-09-14] MEDS: inSUlin ASPART (NovoLOG) 1 UNIT/0.01 ML (CHARGE PER UNIT) SC SCH ×4 (00:15→18:13)
[2018-09-14] MEDS: meTOprolol 5 MG/5 ML (LOPRESSOR) VIAL IV PRN (00:15)
[2018-09-14] MEDS ORDERED: ENOXAPARIN 60 MG/0.6 ML (LOVENOX) SYR SC SCH ×2 (00:30→07:00)
[2018-09-14] MEDS: RT-ALBUTEROL/IPRATROPIUM 3 ML (DUONEB) VIAL IH SCH ×6 (03:34→21:08)
[2018-09-14 04:00] VITALS: BP 170/102
[2018-09-14] MEDS ORDERED: TROUGH ORDER-PHARMACY XX NR (05:00)
[2018-09-14] MEDS: PIPERACILLIN/TAZO 4.5 GM/NS 100 ML IV SCH ×6 (05:33→21:10)
[2018-09-14 05:59] LABS: MEAN PLATELET VOLUME 10.4 FL (7.4-10.4); RED CELL DISTRIBUTION WIDTH 19.8 % (10.0-14.5); WHITE BLOOD COUNT 11.2 10^3/uL (4.3-11.0)
[2018-09-14 06:26] LABS: BUN/CREATININE RATIO 26; CALCIUM 9.5 MG/DL (8.5-10.1); CARBON DIOXIDE 24 MMOL/L (21-32); CHLORIDE 105 MMOL/L (98-107); CREATININE SERUM 0.93 MG/DL (0.60-1.30); GFR ESTIMATED > 60; GLUCOSE 149 MG/DL (70-105); POTASSIUM 5.1 MMOL/L (3.6-5.0); SODIUM 139 MMOL/L (135-145)
[2018-09-14 06:33] LABS: VANCOMYCIN,TROUGH 13.8 UG/ML (10.0-20.0)
[2018-09-14] MEDS: RT-ADVAIR HFA 115/21 MCG PER PUFF IH SCH ×2 (07:47→21:08)
[2018-09-14 08:32] VITALS: BP 186/96
[2018-09-14] MEDS ORDERED: methylPREDNISolone 40 MG/ML (Solu-MEDROL) VIAL IV SCH (09:00)
[2018-09-14] MEDS: LORATADINE (CLARITIN) 10 MG TAB PO SCH (09:32)
[2018-09-14] MEDS: ACETAMINOPHEN 500 MG TAB (TYLENOL) PO SCH ×3 (09:32→21:10)
[2018-09-14] MEDS: meTOprolol TARTRATE 50 MG (LOPRESSOR) TAB PO SCH ×2 (09:33→21:10)
[2018-09-14] MEDS: DULoxetine 30 MG (CYMBALTA) CAP PO SCH (09:33)
[2018-09-14] MEDS: glipiZIDE 5 MG (GLUCOTROL) TAB PO SCH ×2 (09:33→16:47)
[2018-09-14] MEDS: PREGABALIN 100 MG (LYRICA) CAPSULE PO SCH ×3 (09:33→21:10)
[2018-09-14] MEDS: KCL 20 MEQ TAB (K-DUR) PO SCH (09:33)
[2018-09-14] MEDS: ASPIRIN E.C. 325 MG (ECOTRIN) TABLET PO SCH (09:33)
[2018-09-14] MEDS: MULTIVIT W/MINERALS TAB (THERAGRAN M) PO SCH (09:34)
[2018-09-14] MEDS: ENOXAPARIN 60 MG/0.6 ML (LOVENOX) SYR SC SCH ×2 (09:34→21:09)
[2018-09-14] MEDS: FINASTERIDE (PROSCAR) 5 MG TAB PO SCH (09:34)
[2018-09-14] MEDS: HYDROCHLOROTHIAZIDE 25 MG (HCTZ) TAB PO SCH (09:34)
[2018-09-14] MEDS: FUROSEMIDE 20 MG (LASIX) TAB PO SCH ×2 (09:34→09:44)
[2018-09-14] MEDS: A & D OINT 113 GM TUBE TOP SCH (09:35)
--- NOTE | 2018-09-14 09:42 | Occupational Ther Daily Note ---
OT Current Status-Daily Note Subjective No pain reported. Appearance Pt. in bed. On vapotherm. Agrees to treatment. Mental Status/Objective Patient Orientation: Person, Place, Time, Situation Therapy Code Descriptions/Definitions Functional [place] Measure: 0=Not Assessed/NA 4=Minimal Assistance 1=Total Assistance 5=Supervision or Setup 2=Maximal Assistance 6=Modified [place] 3=Moderate Assistance 7=Complete [place] Attachments: Gonzalez Catheter, IV, Oxygen ADL-Treatment Bathing (FIM): 3 (Pt. able to wash his arms, face, and chest with warm bath pack. OT washed all other parts, except feet that were in meet wraps. Pt. able to stand at bedside holding onto IV pole while OT cleansed areas.) Toileting (FIM): 1 (Catheter. Pt. also unable to cleanse rear or front pavel areas.) Transfers (B, C, W/C) (FIM): 4 (Min assist supine-sit. Min assist sit-stand and transfer to reclining chair.) Pt. agrees to bathe on side of bed. Pt. has great difficulty washing under apron and pavel area. Pt. states that at home, he has a shower chair that he sits on and that he is able to wash all parts. Noted open bleeding sore in gr oin area. Washed and dried this and placed dry cloth in groin due to moisture. Notified nursing regarding this. Pt. transferred to chair with hand held assist. All needs met with bilateral feet elevated. Education OT Patient Education: Correct positioning, Modified ADL techniques, Progress toward Goal/Update tx plan, Purpose of tx/functional activities, Reviewed precautions, Rehab process, Transfer techniques Teaching Recipient: Patient Teaching Methods: Demonstration, Discussion Response to Teaching: Verbalize Understanding, Return Demonstration OT Short Term Goals Short Term Goals Transfers (B,C,W/C) (FIM): 6 1=Demonstrate adherence to instructed precautions during ADL tasks. 2=Patient will verbalize/demonstrate understanding of assistive devices/modifications for ADL. 3=Patient will improve strength/tolerance for activity to enable patient to perform ADL's. OT Chcf Goals Music Director Goals Time Frame: Sep 25, 2018 Bathing(FIM): 5 Upper Body Dressing(FIM): 5 Lower Body Dressing(FIM): 5 Toileting(FIM): 5 Toilet/Commode Transfer(FIM): 5 Additional Goals: 1-Demonstrate ADL Tasks, 2-Verbalize Understanding, 3- ImproveStrength/Ghulam 1=Demonstrate adherence to instructed precautions during ADL tasks. 2=Patient will verbalize/demonstrate understanding of assistive devices/modifications for ADL. 3=Patient will improve strength/tolerance for activity to enable patient to perform ADL's. OT Education/Plan Problem List/Assessment Assessment: Decreased Activ Tolerance, Dependent Transfers, Impaired Bed Mobility, Impaired Funct Balance, Impaired I ADL's, Impaired Self-Care Skills Pt to benefit from skilled OT intervention for ADL training, transfers, strengt hening, and safety education to increase level of independence and allow safe discharge. Discharge Recommendations Plan/Recommendations: Continue POC Treatment Plan/Plan of Care Treatment,Training & Education: Yes Patient would benefit from OT for education, treatment and training to promote independence in ADL's, mobility, safety and/or upper extremity function for ADL's. Plan of Care: ADL Retraining, Functional Mobility, UE Funct Exercise/Act Treatment Duration: Sep 25, 2018 Frequency: 5 times per week Estimated Hrs Per Day: .25 hour per day Agreement: Yes Rehab Potential: Good Time/GCodes Start Time: 09:05 Stop Time: 09:35 Total Time Billed (hr/min): 30 Billed Treatment Time 1, ADL x 2 YOKATSA BALLARD OT September 14, 2018 09:42
--- NOTE | 2018-09-14 10:04 | Physical Therapy Daily Note ---
PT Daily Note-Current Subjective Patient in recliner pre tx, agrees to PT, has 9/10 pain from the neck down and he says this is his normal pain. Patient doesn't want to get out of his recliner at this time but agrees to BLE exercises. Appearance Patient in recliner post tx with nurse call, phone, tray, all needs met. Mental Status Patient Orientation: Person, Place, Situation Attachments: Oxygen, Gonzalez Catheter, IV Transfers Therapy Code Descriptions/Definitions Functional [place] Measure: 0=Not Assessed/NA 4=Minimal Assistance 1=Total Assistance 5=Supervision or Setup 2=Maximal Assistance 6=Modified [place] 3=Moderate Assistance 7=Complete [place] Therapy Quality Codes: 6 Independent with activity with or without an assistive device 5 Patient requires set up or clean up by helper. Patient completes activity by themselves 4 Supervision or touching assist (CGA). [place] provide cues , steadying assist 3 The helper provides less than half the effort to complete the activity 2 The helper provides more than half the effort to complete the activity 1 Dependent. The helper does all the effort to complete an activity 7 Patient refused to complete or attempt activity 9 The patient did not perform the activity before the current illness or injury 88 Not attempted due to Medical conditions or safety concerns Weight Bearing Right Lower Extremity: Right Full Weight Bearing Left Lower Extremity: Left Full Weight Bearing Exercises Supine Ex: Quad Set, Glut sets Supine Reps: 20 Seated Therapy Exercises: Ankle pumps, Long arc quads, Hip abd/add Seated Reps: 20 supine exercises above were actually performed in the recliner with the legs elevated Treatments BLE exercise Assessment Current Status: Poor Progress no change in mobility PT Short Term Goals Short Term Goals Time Frame: September 17, 2018 Transfers (B,C,W/C) (FIM): 6 PT Combatant Swimmer Goals Combatant Swimmer Goals PT Combatant Swimmer Goals Time Frame: Sep 24, 2018 Gait (FIM): 5 Gait distance (FIM): 0=726-30 ft Distance: 75 Gait Level of Assist: 6 Gait Assistive Device: FWW PT Plan Problem List Problem List: Activity Tolerance, Functional Strength, Safety, Balance, Gait, Transfer, Bed Mobility, ROM Treatment/Plan Treatment Plan: Continue Plan of Care Treatment Plan: Bed Mobility, Education, Functional Activity Ghulam, Functional Strength, Gait, Safety, Therapeutic Exercise, Transfers Treatment Duration: Sep 24, 2018 Frequency: 6 times per week Estimated Hrs Per Day: .25 hour per day Patient and/or Family Agrees t: Yes Safety Risks/Education Patient Education: Correct Positioning, Safety Issues Teaching Recipient: Patient Teaching Methods: Demonstration, Discussion Response to Teaching: Reinforcement Needed Time/GCodes Time In: 0950 Time Out: 1000 Total Billed Treatment Time: 10 Total Billed Treatment 1 visit EX 10' LEA LOPEZ PT September 14, 2018 10:04
--- NOTE | 2018-09-14 11:02 | Progress Note (SOAP) ---
Subjective Subjective/Events-last exam Afebrile, no acute events. He continues to have slow improvement in respiratory status. Review of Systems Date Seen by Provider: September 14, 2018 Time Seen by Provider: 09:00 Objective Exam Last Set of Vital Signs Vital Signs Date Time Temp Pulse Resp B/P (MAP) Pulse Ox O2 Delivery O2 Flow Rate FiO2 09/14/18 08:32 97.5 90 25 186/96 (126) 95 Vapotherm 30.00 18.00 09/14/18 07:47 30 Capillary Refill : Less Than 3 Seconds I&O Intake and Output 09/14/18 00:00 Intake Total 2497.5 ml Output Total 1400 ml Balance 1097.5 ml Intake Oral 1860 ml IV Total 637.5 ml Output Urine Total 1400 ml General: Alert, No Acute Distress Lungs: Other (decreased air movement) Heart: Regular Rate, No Murmurs Neuro: Normal Speech Psych/Mental Status: Mental Status NL Results/Procedures Lab Laboratory Tests 09/13/18 12:13: Glucometer 178H 09/13/18 18:11: Glucometer 172H 09/13/18 23:14: Glucometer 188H 09/14/18 05:07: Glucometer 141H 09/14/18 05:50: White Blood Count 11.2H, Red Blood Count 5.11, Hemoglobin 14.0, Hematocrit 46, Mean Corpuscular Volume 90, Mean Corpuscular Hemoglobin 27, Mean Corpuscular Hemoglobin Concent 31L, Red Cell Distribution Width 19.8H, Platelet Count 183, Mean Platelet Volume 10.4, Sodium Level 139, Potassium Level 5.1H, Chloride Level 105, Carbon Dioxide Level 24, Anion Gap 10, Blood Urea Nitrogen 24H, Creatinine 0.93, Estimat Glomerular Filtration Rate > 60, BUN/Creatinine Ratio 26, Glucose Level 149H, Calcium Level 9.5, Vancomycin Level Trough 13.8 Microbiology 09/10/18 Blood Culture - Final, Complete Strep agalactiae Group B 09/10/18 MRSA Screen - Final, Complete MRSA not isolated 09/10/18 Urine Culture - Final, Complete NO GROWTH Assessment/Plan Assessment/Plan (1) Type II diabetes mellitus with complication Status: Chronic Assessment & Plan: Diabetic diet, glipizide, insulin. Qualifiers: Qualified Codes: E11.8 - Type 2 diabetes mellitus with unspecified complications; Z79.4 - intermediate manager (current) use of insulin (2) Acute and chronic respiratory failure with hypoxia Status: Acute Assessment & Plan: Pulm following, appreciate recommendations. Echo done 08/29/18 with normal EF and diastolic parameters. On furosemide chronically. Using bipap and vapotherm. (3) Pneumonia Status: Acute Assessment & Plan: On zosyn and vancomycin 09/14 on zosyn, improving (4) Bacteremia due to group B Streptococcus Status: Acute Assessment & Plan: Positive blood cultures, covered with zosyn. (5) COPD with acute exacerbation Status: Acute Assessment & Plan: Pulm consulted, on solumedrol, Advair and duonebs. (6) Fibromyalgia Status: Chronic (7) VENKATA on CPAP Status: Chronic (8) Chronic cutaneous venous stasis ulcer Status: Chronic Assessment & Plan: Wound care consulted, dressing changes per recommendations. (9) Hypertension Status: Chronic Assessment & Plan: 09/14- added lisinopril yesterday, had hyperkalemia on labs today, will change to hydrochlorothiazide. Qualifiers: Qualified Codes: I10 - Essential (primary) hypertension (10) DVT prophylaxis Status: Acute Assessment & Plan: Enoxaparin Clinical Quality Measures DVT/VTE Risk/Contraindication: Risk Factor Score Per Nursin RFS Level Per Nursing on Admit: 3=High JOHN BUCIO MD September 14, 2018 11:02
[2018-09-14 12:00] VITALS: BP 172/94
[2018-09-14] MEDS: LIDOCAINE 4% (SALONPAS) PATCH TOP PRN (12:25)
--- NOTE | 2018-09-14 13:46 | Pulmonary Progress Note ---
Subjective Time Seen by a Provider: 07:11 Subjective/Events-last exam Pt appears very weak Sepsis Event Evaluation Height, Weight, BMI Height: 5'" Weight: 452lbs. 14.4oz. 205.004656jb; 60.7 BMI Method:Stated Exam Exam Vital Signs Date Time Temp Pulse Resp B/P (MAP) Pulse Ox O2 Delivery O2 Flow Rate FiO2 09/14/18 12:00 97.0 75 22 172/94 (120) 95 Vapotherm 30.00 18.00 09/14/18 11:08 95 Vapotherm 18.00 30 09/14/18 08:32 97.5 90 25 186/96 (126) 95 Vapotherm 30.00 18.00 09/14/18 08:00 Vapotherm 18.00 09/14/18 07:47 93 Vapotherm 18.00 30 09/14/18 07:11 87 12 96 35.00 09/14/18 04:00 97.0 88 13 170/102 (124) 94 NIV Bilevel 09/14/18 03:34 70 35 95 35.00 09/13/18 23:57 97.6 89 22 158/98 (118) 93 Vapotherm 30.00 18.00 09/13/18 23:21 75 19 95 35.00 09/13/18 20:05 93 Vapotherm 18.00 09/13/18 20:00 97.1 97 20 154/108 (123) 94 Vapotherm 30.00 18.00 09/13/18 18:57 Vapotherm 18.00 30 09/13/18 18:52 93 Vapotherm 20.00 30 09/13/18 16:00 97.3 81 18 158/92 (114) 94 Vapotherm 30.00 20.00 09/13/18 15:24 91 Venturi Mask 10.00 30 I & O 09/14/18 07:00 Intake Total 2010 ml Output Total 1300 ml Balance 710 ml Height & Weight Height: '" Weight: 452lbs. 14.4oz. 205.782259zo; 60.7 BMI Method:Stated General Appearance: No Apparent Distress, WD/WN, Chronically ill HEENT: PERRL/EOMI, Normal ENT Inspection, Pharynx Normal, Moist Mucous Membranes Neck: Full Range of Motion, Normal Inspection, Non Tender Respiratory: Chest Non Tender, Lungs Clear, Normal Breath Sounds, No Accessory Muscle Use, No Respiratory Distress, Decreased Breath Sounds Cardiovascular: Regular Rate, Rhythm, No Edema, No Gallop, No JVD, No Murmur, Normal Peripheral Pulses Capillary Refill: Less Than 3 Seconds Gastrointestinal: distended (markedly obese), tenderness Extremity: Normal Capillary Refill, Normal Inspection, Normal Range of Motion, Non Tender, No Calf Tenderness, No Pedal Edema Neurologic/Psychiatric: Alert, Oriented x3, No Motor/Sensory Deficits, Normal Mood/Affect Skin: Normal Color, Warm/Dry, Other (dressing intact lower legs) Lymphatic: No Adenopathy Results Lab Laboratory Tests 09/14/18 05:50 Assessment/Plan Assessment/Plan Acute on chronic respiratory failure -BIPAP qhs and Vapotherm -Pt has home BiPAP -Secondary to his insurance we will not be able to get home vent to mask -ABG 54 Pneumonia- cultures show strep -Continue Zosyn D/C Vancomycin -Reyes cultures pending -MRSA nasal swab is neg RLD -Last PFT was 07/2018 - Shows severe RLD with asthma and decreased DLCO AsthmaAE -Solumedrol, SVNS, Advair, Singulair, Claritin -Pt uses symbicort and proair as out patient -Pt has a nebulizer at home with Duoneb Diastolic CHF EF 60% -Continue home Lasix OHS/VENKATA -PT has BiPAP with 2 liters of oxygen -Last BiPAP down load 08/2018 -AHI 2.1 -Does shows compliance -Pt states the last time he was in hospital he was sent home with a different BiPAP machine. Once someone brings his machine in I'll have the DME look at it a nd get a new down load. Tobacco use - quit in 1991 Chronic leg wounds - known to Wound care clinic -Wound care is consulted TAMIKA HILARIO DO September 14, 2018 13:46
[2018-09-14 15:43] VITALS: BP 153/91
--- NOTE | 2018-09-14 15:46 | NUR ---
CM/SS, initial visit. During last hospitalization, [facility] physician discussed SNF with patient and procedure writer opened this conversation today. Patient continues to reside at home with his dad, Pardeep Perea. Patient does not agree to enter a SNF, he desires to return home with his dad and he also indicates he would be more successful to follow weight loss and exercise plans at his home. HHC: Patient current with [facility] for RN, PT/OT, and outpatient wound care with [facility]. Both should be resumed at discharge. He was also apparently participating in pulmonary rehab or [facility] program. Patient has HCBS, he recently had his weekly hours increased to 22 and 5 days per week. Assistance includes homemaker and personal care. Patient and his dad purchase meals from [employer] which is delivered monthly. Continue to follow for care plan and relative discharge resources.
[2018-09-14 20:25] VITALS: BP 175/80
[2018-09-14] MEDS: DOXEPIN 25 MG (SINEquan) CAP PO SCH (21:09)
[2018-09-14] MEDS: ATORVASTATIN 40 MG (LIPITOR) TABLET PO SCH (21:10)
[2018-09-14] MEDS: morphine INJ 4 MG/ML 1 ML (VIAL/SYRINGE) IVP PRN (23:35)
[2018-09-15] VITALS: BP 183/78
[2018-09-15] MEDS: meTOprolol 5 MG/5 ML (LOPRESSOR) VIAL IV PRN ×3 (00:09→16:00)
[2018-09-15] MEDS: inSUlin ASPART (NovoLOG) 1 UNIT/0.01 ML (CHARGE PER UNIT) SC SCH ×4 (00:19→17:47)
[2018-09-15 01:11] VITALS: BP 144/81
[2018-09-15] MEDS: RT-ALBUTEROL/IPRATROPIUM 3 ML (DUONEB) VIAL IH SCH ×6 (02:01→22:31)
[2018-09-15 04:00] VITALS: BP 178/86
[2018-09-15] MEDS: PIPERACILLIN/TAZO 4.5 GM/NS 100 ML IV SCH ×6 (04:34→20:08)
[2018-09-15] MEDS: glipiZIDE 5 MG (GLUCOTROL) TAB PO SCH ×2 (05:33→15:31)
[2018-09-15 06:35] LABS: BUN/CREATININE RATIO 25; CALCIUM 9.9 MG/DL (8.5-10.1); CARBON DIOXIDE 28 MMOL/L (21-32); CHLORIDE 104 MMOL/L (98-107); CREATININE SERUM 0.99 MG/DL (0.60-1.30); GFR ESTIMATED > 60; POTASSIUM 4.8 MMOL/L (3.6-5.0); SODIUM 145 MMOL/L (135-145)
[2018-09-15 06:36] LABS: GLUCOSE 49 MG/DL (70-105)
--- NOTE | 2018-09-15 06:44 | NUR ---
THIS RN CALLED DR. BUCIO IN REGARDS TO THE PT'S FINGER STICK ACCUCHECKING BEING 55 THIS MORNING AND MORNING GLUCOSE LAB BEING 49. FABIANO CRACKERS PEANUT BUTTER AND ORANGE JUICES WERE GIVEN AND BREAKFAST WAS ORDERED PREVIOUSLY TO CALLING DR. BUCIO. CURRENT FINGER STICK ACCUCHECK READING 65. DR. BUCIO INSTRUCTED TO CHECK PT'S BLOOD SUGAR WITH ACCUCHECK MACHINE AFTER PT HAS EATEN BREAKFAST. READ BACK AND VERIFIED. WILL CONTINUE TO MONITOR.
[2018-09-15] MEDS: RT-ADVAIR HFA 115/21 MCG PER PUFF IH SCH ×2 (07:18→18:31)
--- NOTE | 2018-09-15 07:19 | Pulmonary Progress Note ---
Subjective Time Seen by a Provider: 07:19 Subjective/Events-last exam Pt appears to be doing better. Sepsis Event Evaluation Height, Weight, BMI Height: 5'" Weight: 448lbs. 4.8oz. 203.412172nx; 60.7 BMI Method:Stated Exam Exam Vital Signs Date Time Temp Pulse Resp B/P (MAP) Pulse Ox O2 Delivery O2 Flow Rate FiO2 09/15/18 04:00 96.2 73 20 178/86 (116) 94 NIV CPAP 30.00 18.00 09/15/18 02:02 76 12 95 35.00 09/15/18 01:55 83 22 94 35.00 09/15/18 01:11 62 144/81 (102) 09/15/18 00:00 96.0 80 20 183/78 (113) 95 NIV CPAP 30.00 18.00 09/14/18 21:10 96 Vapotherm 18.00 30 09/14/18 20:25 97.2 98 22 175/80 (111) 97 Vapotherm 30.00 18.00 09/14/18 20:00 Vapotherm 18.00 35 09/14/18 15:43 96.9 64 20 153/91 (111) 95 Vapotherm 30.00 18.00 09/14/18 14:21 92 Vapotherm 18.00 30 09/14/18 12:00 97.0 75 22 172/94 (120) 95 Vapotherm 30.00 18.00 09/14/18 11:08 95 Vapotherm 18.00 30 09/14/18 08:32 97.5 90 25 186/96 (126) 95 Vapotherm 30.00 18.00 09/14/18 08:00 Vapotherm 18.00 35 09/14/18 07:47 93 Vapotherm 18.00 30 I & O 09/15/18 07:00 Intake Total 1830 ml Output Total 1725 ml Balance 105 ml Height & Weight Height: 5'.00" Weight: 448lbs. 4.8oz. 203.145858hq; 60.7 BMI Method:Stated General Appearance: No Apparent Distress, WD/WN, Chronically ill HEENT: PERRL/EOMI, Normal ENT Inspection, Pharynx Normal, Moist Mucous Membranes Neck: Full Range of Motion, Normal Inspection, Non Tender Respiratory: Chest Non Tender, Lungs Clear, Normal Breath Sounds, No Accessory Muscle Use, No Respiratory Distress, Decreased Breath Sounds Cardiovascular: Regular Rate, Rhythm, No Edema, No Gallop, No JVD, No Murmur, Normal Peripheral Pulses Capillary Refill: Less Than 3 Seconds Gastrointestinal: distended (markedly obese), tenderness Extremity: Normal Capillary Refill, Normal Inspection, Normal Range of Motion, Non Tender, No Calf Tenderness, No Pedal Edema Neurologic/Psychiatric: Alert, Oriented x3, No Motor/Sensory Deficits, Normal Mood/Affect Skin: Normal Color, Warm/Dry, Other (dressing intact lower legs) Lymphatic: No Adenopathy Results Lab Laboratory Tests 09/14/18 05:50 09/15/18 05:58 Assessment/Plan Assessment/Plan Acute on chronic respiratory failure -Vent to Mask QHS and Vapotherm during the day -Pt has home BiPAP -Pt would benefit from home vent to mask. He has severe OHS with chronic respiratory failure. He has multiple hospitalizations. -I contacted [facility] to see if they can get pt a home vent to mask which will help reduce hospitalizations. Pt is high risk for sudden secondary to chronic respiratory failure and OHS. -Decrease solumedrol to 20mg IV daily -ABG 54 Pneumonia- cultures show strep bacteremia -Continue Zosyn -Reyes cultures pending -MRSA nasal swab is neg RLD -Last PFT was 07/2018 - Shows severe RLD with asthma and decreased DLCO AsthmaAE -Solumedrol, SVNS, Advair, Singulair, Claritin -Pt uses symbicort and proair as out patient -Pt has a nebulizer at home with Duoneb Diastolic CHF EF 60% -Continue home Lasix OHS/VENKATA -PT has BiPAP with 2 liters of oxygen -Last BiPAP down load 08/2018 -AHI 2.1 -Does shows compliance -Pt states the last time he was in hospital he was sent home with a different BiPAP machine. Once someone brings his machine in I'll have the DME look at it and get a new down load. Tobacco use - quit in 1991 Chronic leg wounds - known to Wound care clinic -Wound care is consulted Total time spent with pt arranging home vent to mask and discussing with DME is 60min. TAMIKA HILARIO DO September 15, 2018 07:19
[2018-09-15 08:00] VITALS: BP 184/103
[2018-09-15] MEDS ORDERED: methylPREDNISolone 40 MG/ML (Solu-MEDROL) VIAL IV SCH (09:00)
[2018-09-15] MEDS: LORATADINE (CLARITIN) 10 MG TAB PO SCH ×2 (10:18→10:36)
[2018-09-15] MEDS: ENOXAPARIN 60 MG/0.6 ML (LOVENOX) SYR SC SCH ×2 (10:35→22:41)
[2018-09-15] MEDS: PREGABALIN 100 MG (LYRICA) CAPSULE PO SCH ×3 (10:36→20:08)
[2018-09-15] MEDS: ASPIRIN E.C. 325 MG (ECOTRIN) TABLET PO SCH (10:36)
[2018-09-15] MEDS: MULTIVIT W/MINERALS TAB (THERAGRAN M) PO SCH (10:37)
[2018-09-15] MEDS: HYDROCHLOROTHIAZIDE 25 MG (HCTZ) TAB PO SCH (10:37)
[2018-09-15] MEDS: ACETAMINOPHEN 500 MG TAB (TYLENOL) PO SCH ×3 (10:37→20:12)
[2018-09-15] MEDS: DULoxetine 30 MG (CYMBALTA) CAP PO SCH (10:37)
[2018-09-15] MEDS: FUROSEMIDE 20 MG (LASIX) TAB PO SCH (10:37)
[2018-09-15] MEDS: FINASTERIDE (PROSCAR) 5 MG TAB PO SCH (10:37)
[2018-09-15] MEDS: KCL 20 MEQ TAB (K-DUR) PO SCH (10:38)
[2018-09-15] MEDS: meTOprolol TARTRATE 50 MG (LOPRESSOR) TAB PO SCH ×2 (10:40→20:08)
[2018-09-15] MEDS: A & D OINT 113 GM TUBE TOP SCH (10:48)
--- NOTE | 2018-09-15 10:48 | Occupational Ther Daily Note ---
OT Current Status-Daily Note Subjective Pt in bed, agrees to therapy. Pt reports 9/10 pain secondary to Fibromyalgia and arthritis. Pt states he did not sleep well last night and is tired today. Mental Status/Objective Therapy Code Descriptions/Definitions Functional [place] Measure: 0=Not Assessed/NA 4=Minimal Assistance 1=Total Assistance 5=Supervision or Setup 2=Maximal Assistance 6=Modified [place] 3=Moderate Assistance 7=Complete [place] Attachments: Gonzalez Catheter, Oxygen (vapotherm) ADL-Treatment Pt resting in bed, declined to get up to chair at this time secondary to pain and fatigue. Pt's gown was dirty. Declined bathing, but changed gown with minimal assistance. Pt completed grooming tasks with HOB raised. Pt washed face, combed hair, and brushed teeth with set up. Pt in bed with needs met after session, RN present. Grooming (FIM): 5 OT Short Term Goals Short Term Goals Transfers (B,C,W/C) (FIM): 6 1=Demonstrate adherence to instructed precautions during ADL tasks. 2=Patient will verbalize/demonstrate understanding of assistive devices/modifications for ADL. 3=Patient will improve strength/tolerance for activity to enable patient to perform ADL's. OT [facility] Goals Real Estate Underwriter Goals Time Frame: Sep 25, 2018 Bathing(FIM): 5 Upper Body Dressing(FIM): 5 Lower Body Dressing(FIM): 5 Toileting(FIM): 5 Toilet/Commode Transfer(FIM): 5 Additional Goals: 1-Demonstrate ADL Tasks, 2-Verbalize Understanding, 3- ImproveStrength/Ghulam 1=Demonstrate adherence to instructed precautions during ADL tasks. 2=Patient will verbalize/demonstrate understanding of assistive devices/modifications for ADL. 3=Patient will improve strength/tolerance for activity to enable patient to perform ADL's. OT Education/Plan Problem List/Assessment Pt to benefit from skilled OT intervention for ADL training, transfers, strengthening, and safety education to increase level of independence and allow safe discharge. Discharge Recommendations Plan/Recommendations: Continue POC Treatment Plan/Plan of Care Patient would benefit from OT for education, treatment and training to promote independence in ADL's, mobility, safety and/or upper extremity function for ADL's. Plan of Care: ADL Retraining, Functional Mobility, UE Funct Exercise/Act Treatment Duration: Sep 25, 2018 Frequency: 5 times per week Estimated Hrs Per Day: .25 hour per day Agreement: Yes Rehab Potential: Good Time/GCodes Start Time: 10:23 Stop Time: 10:41 Total Time Billed (hr/min): 18 Billed Treatment Time 1 visit, ADL(18minutes) DORENE GILLESPIE OT September 15, 2018 10:48
[2018-09-15 12:00] VITALS: BP 180/107
--- NOTE | 2018-09-15 14:12 | Physical Therapy Daily Note ---
PT Daily Note-Current Subjective Pt laying Supine in bed upon arrival. Pt reports recently "got back to bed and would like to stay here". Pt had just finished lunch and agrees to PT. Pain Numeric Pain Scale: 8 Location: Dorsal Location Body Site: Back Pain Description: Ache, Tingling Comment: Pt reports pain in B shoulders, through back & down Medial R hand. Mental Status Patient Orientation: Person, Place, Situation Attachments: Oxygen, Gonzalez Catheter Transfers Therapy Code Descriptions/Definitions Functional [place] Measure: 0=Not Assessed/NA 4=Minimal Assistance 1=Total Assistance 5=Supervision or Setup 2=Maximal Assistance 6=Modified [place] 3=Moderate Assistance 7=Complete [place] Therapy Quality Codes: 6 Independent with activity with or without an assistive device 5 Patient requires set up or clean up by helper. Patient completes activity by themselves 4 Supervision or touching assist (CGA). Haskins provide cues , steadying assist 3 The helper provides less than half the effort to complete the activity 2 The helper provides more than half the effort to complete the activity 1 Dependent. The helper does all the effort to complete an activity 7 Patient refused to complete or attempt activity 9 The patient did not perform the activity before the current illness or injury 88 Not attempted due to Medical conditions or safety concerns Weight Bearing Right Lower Extremity: Right Full Weight Bearing Left Lower Extremity: Left Full Weight Bearing Exercises Supine Ex: Ankle pumps, Quad Set, Glut sets, Heel Slides, Straight leg raise, Hip abd/add Supine Reps: 15 Treatments Pt completes Supine EX in bed with several short RB in between EX. Pt resting at end of tx with all needs met. Assessment Current Status: Fair Progress Pt gets SOA and demonstrates low activity tolerance. PT Short Term Goals Short Term Goals Time Frame: September 17, 2018 Transfers (B,C,W/C) (FIM): 6 PT Fdc Goals Fdc Goals PT Director Security Management Goals Time Frame: Sep 24, 2018 Gait (FIM): 5 Gait distance (FIM): 1=979-53 ft Distance: 75 Gait Level of Assist: 6 Gait Assistive Device: FWW PT Plan Problem List Problem List: Activity Tolerance, Functional Strength, Safety, Balance, Gait, Transfer, Bed Mobility Treatment/Plan Treatment Plan: Continue Plan of Care Treatment Plan: Bed Mobility, Education, Functional Activity Ghulam, Functional Strength, Gait, Safety, Therapeutic Exercise, Transfers Treatment Duration: Sep 24, 2018 Frequency: 6 times per week Estimated Hrs Per Day: .25 hour per day Patient and/or Family Agrees t: Yes Safety Risks/Education Patient Education: Transfer Techniques, Correct Positioning, Safety Issues Teaching Recipient: Patient Teaching Methods: Discussion Response to Teaching: Verbalize Understanding Time/GCodes Time In: 1345 Time Out: 1405 Total Billed Treatment Time: 20 Total Billed Treatment 1, EX (20m) G Codes Necessary: PRIYANKA Hinson PTA September 15, 2018 14:12
--- NOTE | 2018-09-15 14:50 | Progress Note (SOAP) ---
Subjective Subjective/Events-last exam Afebrile, down to nasal cannula this am but 10 lpm. Review of Systems Date Seen by Provider: September 15, 2018 Time Seen by Provider: 11:12 Objective Exam Last Set of Vital Signs Vital Signs Date Time Temp Pulse Resp B/P (MAP) Pulse Ox O2 Delivery O2 Flow Rate FiO2 09/15/18 12:00 96.0 86 20 180/107 (131) 99 Vapotherm 30.00 18.00 09/15/18 07:21 30 Capillary Refill : Less Than 3 Seconds I&O Intake and Output 09/15/18 00:00 Intake Total 1530 ml Output Total 750 ml Balance 780 ml Intake Oral 1530 ml Output Urine Total 750 ml # Voids 1 # Bowel Movements 2 General: Alert, No Acute Distress Lungs: Other (decreased air movement) Heart: Regular Rate, No Murmurs Abdomen: Normal Bowel Sounds, Soft Neuro: Normal Speech Psych/Mental Status: Mental Status NL Results/Procedures Lab Laboratory Tests 09/14/18 17:57: Glucometer 164H 09/14/18 20:32: Glucometer 141H 09/15/18 00:01: Glucometer 114H 09/15/18 05:18: Glucometer 55*L 09/15/18 05:58: Sodium Level 145, Potassium Level 4.8, Chloride Level 104, Carbon Dioxide Level 28, Anion Gap 13, Blood Urea Nitrogen 25H, Creatinine 0.99, Estimat Glomerular Filtration Rate > 60, BUN/Creatinine Ratio 25, Glucose Level 49*L, Calcium Level 9.9 09/15/18 06:42: Glucometer 65L 09/15/18 12:04: Glucometer 64L Microbiology 09/10/18 Blood Culture - Final, Complete Strep agalactiae Group B 09/10/18 MRSA Screen - Final, Complete MRSA not isolated 09/10/18 Urine Culture - Final, Complete NO GROWTH Assessment/Plan Assessment/Plan (1) Type II diabetes mellitus with complication Status: Chronic Assessment & Plan: Diabetic diet, glipizide, insulin. Qualifiers: Qualified Codes: E11.8 - Type 2 diabetes mellitus with unspecified complications; Z79.4 - [facility] (current) use of insulin (2) Acute and chronic respiratory failure with hypoxia Status: Acute Assessment & Plan: Pulm following, appreciate recommendations. Echo done 08/29/18 with normal EF and diastolic parameters. On furosemide chronically. Using bipap and vapotherm. 09/15 weaned to high flow nasal cannula, solumedrol 40 q6 (3) Pneumonia Status: Acute Assessment & Plan: On zosyn and vancomycin 09/14 on zosyn, improving 09/15 on zosyn, continuing to improve (4) Bacteremia due to group B Streptococcus Status: Acute Assessment & Plan: Positive blood cultures, covered with zosyn. (5) COPD with acute exacerbation Status: Acute Assessment & Plan: Pulm consulted, on solumedrol, Advair and duonebs. (6) Fibromyalgia Status: Chronic (7) VENKATA on CPAP Status: Chronic (8) Chronic cutaneous venous stasis ulcer Status: Chronic Assessment & Plan: Wound care consulted, dressing changes per recommendations. (9) Hypertension Status: Chronic Assessment & Plan: 09/14- added lisinopril yesterday, had hyperkalemia on labs today, will change to hydrochlorothiazide. Qualifiers: Qualified Codes: I10 - Essential (primary) hypertension (10) DVT prophylaxis Status: Acute Assessment & Plan: Enoxaparin Clinical Quality Measures DVT/VTE Risk/Contraindication: Risk Factor Score Per Nursin RFS Level Per Nursing on Admit: 3=High JOHN BUCIO MD September 15, 2018 14:50
--- NOTE | 2018-09-15 17:20 | NUR ---
CALLED DR. BUCIO AT THIS TIME TO REPORT THAT PATIENT'S BP IS ELEVATED AT 193/93 DESPITE THIS RN HAVING ADMINISTERED PRN MEDICATION FOR BLOOD PRESSURE. STATES TO GO AHEAD AND GIVE A ONE TIME ORDER OF LISINOPRIL 20 MG PO NOW. WILL CARRY OUT ORDERS AND CONTINUE TO MONITOR.
[2018-09-15] MEDS ORDERED: lisINopril 20 MG (PRINIVIL) TABLET PO ONE (17:30)
[2018-09-15] MEDS ORDERED: lisINopril 20 MG (PRINIVIL) TABLET ONE (17:40)
[2018-09-15 19:53] VITALS: BP 192/113
[2018-09-15] MEDS: ATORVASTATIN 40 MG (LIPITOR) TABLET PO SCH (20:09)
[2018-09-15] MEDS: DOXEPIN 25 MG (SINEquan) CAP PO SCH (20:09)
[2018-09-15] MEDS: POLYETHYLENE GLYCOL 17 GM (MIRALAX) PACK PO SCH (20:09)
[2018-09-15] MEDS: MONTELUKAST 10 MG (SINGULAIR) TAB PO SCH (20:09)
[2018-09-16] VITALS: BP 113/73
[2018-09-16] MEDS: inSUlin ASPART (NovoLOG) 1 UNIT/0.01 ML (CHARGE PER UNIT) SC SCH ×4 (00:15→18:25)
[2018-09-16] MEDS: RT-ALBUTEROL/IPRATROPIUM 3 ML (DUONEB) VIAL IH SCH ×6 (02:31→22:11)
[2018-09-16 04:00] VITALS: BP 181/113
[2018-09-16] MEDS: meTOprolol 5 MG/5 ML (LOPRESSOR) VIAL IV PRN (04:38)
[2018-09-16] MEDS: PIPERACILLIN/TAZO 4.5 GM/NS 100 ML IV SCH ×6 (04:39→21:44)
[2018-09-16 06:01] LABS: HEMOGLOBIN 13.6 G/DL (13.3-17.7); MEAN PLATELET VOLUME 10.3 FL (7.4-10.4); RED CELL DISTRIBUTION WIDTH 18.8 % (10.0-14.5)
[2018-09-16 06:21] LABS: BUN/CREATININE RATIO 20; CALCIUM 9.9 MG/DL (8.5-10.1); CARBON DIOXIDE 34 MMOL/L (21-32); CHLORIDE 99 MMOL/L (98-107); CREATININE SERUM 1.13 MG/DL (0.60-1.30); GFR ESTIMATED > 60; POTASSIUM 4.7 MMOL/L (3.6-5.0); SODIUM 142 MMOL/L (135-145)
[2018-09-16 06:24] LABS: GLUCOSE 38 MG/DL (70-105)
--- NOTE | 2018-09-16 06:41 | NUR ---
THE RN CALLED DR. BUCIO IN REGARDS TO THE PATIENT'S GLUCOSE BEING CRITICAL AT 38 AND THE PATIENT BEING ASYMPTOMATIC. THIS RN GAVE THE PATIENT GLUCERNIA X2, ORANGE JUICE X2, FABIANO CRACKERS X2 PACKAGES, PEANUT BUTTER X2, AND ORDERED THE PATIENT'S BREAKFAST. THIS RN INFORMED DR BUCIO OF THE PREVIOUS STATEMENTS. ORDERS RECEIVED TO DECREASE THE PATIENTS SCHEDULED 20 MG OF GLIPIZIDE PO TO 10 MG GLIPIZIDE PO AND RECHECK PATIENT'S BLOOD SUGAR AFTER PT EATS BREAKFAST. ORDERS READ BACK AND VERIFIED.
[2018-09-16] MEDS: glipiZIDE 5 MG (GLUCOTROL) TAB PO SCH ×2 (06:52→16:25)
[2018-09-16] MEDS: RT-ADVAIR HFA 115/21 MCG PER PUFF IH SCH ×2 (06:55→18:39)
--- NOTE | 2018-09-16 07:28 | Pulmonary Progress Note ---
Subjective Time Seen by a Provider: 07:24 Subjective/Events-last exam Pt is doing better. Home vent to mask is being arranged. Sepsis Event Evaluation Height, Weight, BMI Height: 5'." Weight: 447lbs. 6.0oz. 202.968484ih; 60.7 BMI Method:Stated Exam Exam Vital Signs Date Time Temp Pulse Resp B/P (MAP) Pulse Ox O2 Delivery O2 Flow Rate FiO2 09/16/18 06:56 98 Nasal Cannula 6.00 09/16/18 04:00 96.8 62 18 181/113 (135) 98 High Flow N/C 6.00 09/16/18 02:31 62 15 97 35.00 09/16/18 00:00 96.8 65 16 113/73 (86) 96 High Flow N/C 6.00 09/15/18 22:36 70 14 94 09/15/18 20:00 High Flow N/C 10.00 09/15/18 19:53 96.4 70 20 192/113 (139) 94 High Flow N/C 6.00 09/15/18 18:33 98 Nasal Cannula 6.00 09/15/18 15:45 97.0 81 24 98 High Flow N/C 6.00 09/15/18 14:43 98 High Flow N/C 10.00 09/15/18 12:00 96.0 86 20 180/107 (131) 99 Vapotherm 30.00 18.00 09/15/18 08:20 Vapotherm 10.00 30 09/15/18 08:00 96.0 82 22 184/103 (130) 94 Vapotherm 30.00 18.00 09/15/18 07:21 93 10.00 30 I & O 09/16/18 07:00 Intake Total 1230 ml Output Total 4400 ml Balance -3170 ml Height & Weight Height: 5'10.00" Weight: 447lbs. 6.0oz. 202.662485af; 60.7 BMI Method:Stated General Appearance: No Apparent Distress, WD/WN, Chronically ill HEENT: PERRL/EOMI, Normal ENT Inspection, Pharynx Normal, Moist Mucous Membranes Neck: Full Range of Motion, Normal Inspection, Non Tender Respiratory: Chest Non Tender, Lungs Clear, Normal Breath Sounds, No Accessory Muscle Use, No Respiratory Distress, Decreased Breath Sounds Cardiovascular: Regular Rate, Rhythm, No Edema, No Gallop, No JVD, No Murmur, Normal Peripheral Pulses Capillary Refill: Less Than 3 Seconds Gastrointestinal: distended (markedly obese), tenderness Extremity: Normal Capillary Refill, Normal Inspection, Normal Range of Motion, Non Tender, No Calf Tenderness, No Pedal Edema Neurologic/Psychiatric: Alert, Oriented x3, No Motor/Sensory Deficits, Normal Mood/Affect Skin: Normal Color, Warm/Dry, Other (dressing intact lower legs) Lymphatic: No Adenopathy Results Lab Laboratory Tests 09/15/18 05:58 09/16/18 05:45 Assessment/Plan Assessment/Plan Acute on chronic respiratory failure -Vent to Mask QHS and Vapotherm during the day -Pt has home BiPAP -Pt would benefit from home vent to mask. He has severe OHS with chronic respiratory failure. He has multiple hospitalizations. -I contacted [facility] to see if they can get pt a home vent to mask which will help reduce hospitalizations. Pt is high risk for sudden secondary to chronic respiratory failure and OHS. -D/c solumedrol- No need for prednisone taper -ABG 54 Pneumonia- cultures show strep bacteremia -D/C Zosyn after today -Reyes cultures pending -MRSA nasal swab is neg RLD -Last PFT was 07/2018 - Shows severe RLD with asthma and decreased DLCO AsthmaAE - SVNS, Advair, Singulair, Claritin -Pt uses symbicort and proair as out patient -Pt has a nebulizer at home with Duoneb Diastolic CHF EF 60% -Continue home Lasix OHS/VENKATA -PT has BiPAP with 2 liters of oxygen -Last BiPAP down load 08/2018 -AHI 2.1 -Does shows compliance -Pt states the last time he was in hospital he was sent home with a different BiPAP machine. Once someone brings his machine in I'll have the DME look at it and get a new down load. Tobacco use - quit in 1991 Chronic leg wounds - known to Wound care clinic -Wound care is consulted TAMIKA HILARIO DO September 16, 2018 07:28
[2018-09-16 08:24] VITALS: BP 190/93
[2018-09-16] MEDS: HYDROCHLOROTHIAZIDE 25 MG (HCTZ) TAB PO SCH (09:55)
[2018-09-16] MEDS: PREGABALIN 100 MG (LYRICA) CAPSULE PO SCH ×3 (09:56→21:17)
[2018-09-16] MEDS: DULoxetine 30 MG (CYMBALTA) CAP PO SCH (09:56)
[2018-09-16] MEDS: FINASTERIDE (PROSCAR) 5 MG TAB PO SCH (09:56)
[2018-09-16] MEDS: meTOprolol TARTRATE 50 MG (LOPRESSOR) TAB PO SCH ×2 (09:56→21:17)
[2018-09-16] MEDS: KCL 20 MEQ TAB (K-DUR) PO SCH (09:56)
[2018-09-16] MEDS: ASPIRIN E.C. 325 MG (ECOTRIN) TABLET PO SCH (09:56)
[2018-09-16] MEDS: ACETAMINOPHEN 500 MG TAB (TYLENOL) PO SCH ×3 (09:57→21:17)
[2018-09-16] MEDS: LORATADINE (CLARITIN) 10 MG TAB PO SCH (09:57)
[2018-09-16] MEDS: lisINopril 20 MG (PRINIVIL) TABLET PO SCH (09:57)
[2018-09-16] MEDS: MULTIVIT W/MINERALS TAB (THERAGRAN M) PO SCH (09:57)
[2018-09-16] MEDS: FUROSEMIDE 20 MG (LASIX) TAB PO SCH (09:57)
[2018-09-16] MEDS: A & D OINT 113 GM TUBE TOP SCH (09:58)
[2018-09-16] MEDS: ENOXAPARIN 60 MG/0.6 ML (LOVENOX) SYR SC SCH ×2 (10:08→21:16)
[2018-09-16 12:00] VITALS: BP 195/103
--- NOTE | 2018-09-16 12:29 | NUR ---
CM/SS, reviewed current status. Patient continues to plan to return home. Adhesive Bandage Machine Operator following for resume of [facility] and any other post hospital coordination of services/resources. Dr. Perez has initiated DME vent to mask on patient behalf. Discussed with [facility]/Dr. Golden this a.m., patient is self-directing his return home when the care team has recommended at least a short stay in a community prison to maximize recovery. Patient has multiple comorbidities and due to his size/weight and pulmonary disease he is quite limited regarding ambulation and motivation. He continues to reside with his dad who has needs as well.
--- NOTE | 2018-09-16 13:34 | Occupational Ther Daily Note ---
OT Current Status-Daily Note Subjective Pt alert, lying in bed. Pt agrees to therapy. Pt c/o being cold in room, no c/o pain. Pt stated that nrsg know about room temperature. Mental Status/Objective Patient Orientation: Person, Place, Time, Situation Therapy Code Descriptions/Definitions Functional [place] Measure: 0=Not Assessed/NA 4=Minimal Assistance 1=Total Assistance 5=Supervision or Setup 2=Maximal Assistance 6=Modified [place] 3=Moderate Assistance 7=Complete [place] Attachments: IV, Oxygen Other Treatment Pt given medium resistance theraband and HEP for pt to use throughout day. UE theraband exercises completed (4 exercises, 2 sets 10 reps) to increase UE strength and activity tolerance for daily functional tasks. Skilled instructions needed for correct technique when using theraband. Pt only to lerated 2 sets 10 reps of exercises, required recovery breaks between sets. After therapy, pt lying in bed with call light/phone in reach. All needs met in room. OT Short Term Goals Short Term Goals Transfers (B,C,W/C) (FIM): 6 1=Demonstrate adherence to instructed precautions during ADL tasks. 2=Patient will verbalize/demonstrate understanding of assistive devices/modifications for ADL. 3=Patient will improve strength/tolerance for activity to enable patient to perform ADL's. OT Rn Allergy Goals [facility] Goals Time Frame: Sep 25, 2018 Bathing(FIM): 5 Upper Body Dressing(FIM): 5 Lower Body Dressing(FIM): 5 Toileting(FIM): 5 Toilet/Commode Transfer(FIM): 5 Additional Goals: 1-Demonstrate ADL Tasks, 2-Verbalize Understanding, 3- ImproveStrength/Ghulam 1=Demonstrate adherence to instructed precautions during ADL tasks. 2=Patient will verbalize/demonstrate understanding of assistive devices/modifications for ADL. 3=Patient will improve strength/tolerance for activity to enable patient to perform ADL's. OT Education/Plan Problem List/Assessment Assessment: Decreased Activ Tolerance, Decreased UE Strength Pt to benefit from skilled OT intervention for ADL training, transfers, strengthening, and safety education to increase level of independence and allow safe discharge. Discharge Recommendations Plan/Recommendations: Continue POC Treatment Plan/Plan of Care Patient would benefit from OT for education, treatment and training to promote independence in ADL's, mobility, safety and/or upper extremity function for ADL's. Plan of Care: ADL Retraining, Functional Mobility, UE Funct Exercise/Act Treatment Duration: Sep 25, 2018 Frequency: 5 times per week Estimated Hrs Per Day: .25 hour per day Agreement: Yes Rehab Potential: Good Time/GCodes Start Time: 11:35 Stop Time: 11:45 Total Time Billed (hr/min): 10 Billed Treatment Time 1 visit-EX 1 (10 min) ILA SHI September 16, 2018 13:34
--- NOTE | 2018-09-16 13:44 | Progress Note (SOAP) ---
Subjective Subjective/Events-last exam Afebrile, no acute events. Tolerating nasal canula while awake. Review of Systems Date Seen by Provider: September 16, 2018 Time Seen by Provider: 10:45 Objective Exam Last Set of Vital Signs Vital Signs Date Time Temp Pulse Resp B/P (MAP) Pulse Ox O2 Delivery O2 Flow Rate FiO2 09/16/18 12:00 97.2 96 22 195/103 (133) 97 High Flow N/C 4.00 09/15/18 08:20 30 Capillary Refill : Less Than 3 Seconds I&O Intake and Output 09/16/18 00:00 Intake Total 1730 ml Output Total 3925 ml Balance -2195 ml Intake Oral 1730 ml Output Urine Total 3925 ml # Bowel Movements 1 General: Alert, No Acute Distress Lungs: Other (decreased air movement) Heart: Regular Rate, No Murmurs Neuro: Normal Speech Psych/Mental Status: Mental Status NL Results/Procedures Lab Laboratory Tests 09/15/18 17:47: Glucometer 84 09/15/18 21:28: Glucometer 79 09/16/18 00:10: Glucometer 118H 09/16/18 05:45: White Blood Count 11.0, Red Blood Count 4.97, Hemoglobin 13.6, Hematocrit 44, Mean Corpuscular Volume 88, Mean Corpuscular Hemoglobin 27, Mean Corpuscular Hemoglobin Concent 31L, Red Cell Distribution Width 18.8H, Platelet Count 178, Mean Platelet Volume 10.3, Sodium Level 142, Potassium Level 4.7, Chloride Level 99, Carbon Dioxide Level 34H, Anion Gap 9, Blood Urea Nitrogen 23H, Creatinine 1.13, Estimat Glomerular Filtration Rate > 60, BUN/Creatinine Ratio 20, Glucose Level 38*L, Calcium Level 9.9 09/16/18 09:04: Glucometer 78 09/16/18 12:11: Glucometer 76 Microbiology 09/10/18 Blood Culture - Final, Complete Strep agalactiae Group B 09/10/18 MRSA Screen - Final, Complete MRSA not isolated 09/10/18 Urine Culture - Final, Complete NO GROWTH Assessment/Plan Assessment/Plan (1) Type II diabetes mellitus with complication Status: Chronic Assessment & Plan: Diabetic diet, glipizide, insulin. 09/16 has been having hypoglycemia, will decrease glipizide to 10 mg and hold levemir. Qualifiers: Qualified Codes: E11.8 - Type 2 diabetes mellitus with unspecified complications; Z79.4 - longterm (current) use of insulin (2) Acute and chronic respiratory failure with hypoxia Status: Acute Assessment & Plan: Pulm following, appreciate recommendations. Echo done 08/29/18 with normal EF and diastolic parameters. On furosemide chronically. Using bipap and vapotherm. 09/15 weaned to high flow nasal cannula, solumedrol 40 q6 09/16 tolerating nasal cannula during the day, working on getting vent to mask per Dr. Perez. Solumedrol tapered off. (3) Pneumonia Status: Acute Assessment & Plan: On zosyn and vancomycin 09/14 on zosyn, improving 09/15 on zosyn, continuing to improve 09/16 zosyn will be complete tomorrow (4) Bacteremia due to group B Streptococcus Status: Acute Assessment & Plan: Positive blood cultures, covered with zosyn. (5) COPD with acute exacerbation Status: Acute Assessment & Plan: Pulm consulted, on solumedrol, Advair and duonebs. 09/16 solumedrol tapered off (6) Fibromyalgia Status: Chronic (7) VENKATA on CPAP Status: Chronic (8) Chronic cutaneous venous stasis ulcer Status: Chronic Assessment & Plan: Wound care consulted, dressing changes per recommendations. (9) Hypertension Status: Chronic Assessment & Plan: 09/14- added lisinopril yesterday, had hyperkalemia on labs today, will change to hydrochlorothiazide. Qualifiers: Qualified Codes: I10 - Essential (primary) hypertension (10) DVT prophylaxis Status: Acute Assessment & Plan: Enoxaparin Clinical Quality Measures DVT/VTE Risk/Contraindication: Risk Factor Score Per Nursin RFS Level Per Nursing on Admit: 3=High JOHN BUCIO MD September 16, 2018 13:44
[2018-09-16 15:57] VITALS: BP 164/89
--- NOTE | 2018-09-16 16:08 | Physical Therapy Progress Note ---
Therapy Progress Note Pt is sitting in recliner eating upon arrival. Pt states he feels better and expects to D/C. SITE SUPERVISING TECHNICAL OPERATOR & pt discuss improvements medically but need for maintaining movement both for wt loss and ROM/strength at home. Dietary was discussed although pt does not seem to understand importance maintaining proper Blood Sugar so more frequent Blood Sugar checks and better food choices. Upon talking with Nurse, this will be communicated with Dr and Nurse is not sure if pt will D/C tomorrow. 1, FA (15m) PRIYANKA PUTNAM SITE SUPERVISING TECHNICAL OPERATOR September 16, 2018 16:08
[2018-09-16] MEDS ORDERED: glipiZIDE 5 MG (GLUCOTROL) TAB PO SCH (16:30)
--- NOTE | 2018-09-16 18:18 | Wound Care Assessment ---
Wound Care Assessment Date Seen by Provider: September 16, 2018 Time Seen by Provider: 18:10 Chief Complaint R great toe and bilateral calf ulcers. HPI The patient is a 62 year old male with bilateral calf ulcerations due to lymphedema and venous insufficiency and a R great toe ulcer due to diabetes. These are chronic non-healing ulcers, and in view of his multiple co- morbidities, are unlikely to ever heal. The wounds remain stable with current dressings, by report, and the continuation of these is ordered. 09/16/18 Interval note: Sitting up in chair with feet on the floor. Says that there is more swelling in the legs, that he has gained 20# in hospital, that he has a new ulcer on the L leg. Wounds are stable by nursing staff report. Past Medical History: Admits Diabetes Type II, Admits Heart Disease (Congestive Heart Failure.) Smoking Status: Former Smoker Recreational Drug Use: No Alcohol Use: Denies Use Review of Systems Pulmonary: Dyspnea Cardiovascular: Edema; No: Chest Pain Exam Vital Signs Date Time Temp Pulse Resp B/P (MAP) Pulse Ox O2 Delivery O2 Flow Rate FiO2 09/16/18 15:57 96.9 86 20 164/89 (114) 100 High Flow N/C 4.00 09/15/18 08:20 30 Capillary Refill : Less Than 3 Seconds General Appearance: mild distress HEENT: normal ENT inspection Cardiovascular: other (Anasarca, massive edema, extending to the backs of his hands.) Extremities: other (Calves in compression wraps.) Results Laboratory Tests 09/15/18 21:28: Glucometer 79 09/16/18 00:10: Glucometer 118H 09/16/18 05:45: White Blood Count 11.0, Red Blood Count 4.97, Hemoglobin 13.6, Hematocrit 44, Mean Corpuscular Volume 88, Mean Corpuscular Hemoglobin 27, Mean Corpuscular Hemoglobin Concent 31L, Red Cell Distribution Width 18.8H, Platelet Count 178, Mean Platelet Volume 10.3, Sodium Level 142, Potassium Level 4.7, Chloride Level 99, Carbon Dioxide Level 34H, Anion Gap 9, Blood Urea Nitrogen 23H, Creatinine 1.13, Estimat Glomerular Filtration Rate > 60, BUN/Creatinine Ratio 20, Glucose Level 38*L, Calcium Level 9.9 09/16/18 09:04: Glucometer 78 09/16/18 12:11: Glucometer 76 Microbiology 09/10/18 Blood Culture - Final, Complete Strep agalactiae Group B 09/10/18 MRSA Screen - Final, Complete MRSA not isolated 09/10/18 Urine Culture - Final, Complete NO GROWTH Assessment/Plan/Dx 1. Diabetic foot ulcer, R great toe, Shane Grade 2. 2. Bilateral calf ulcers, full thickness, combined venous and lymphedema etiology. 3. Morbid obesity, obstructive sleep apnea, dismobility. 4. Anasarca, ?etiology. Plan: Continue previous dressing changes. Orders are written. Will follow. ALFONSO ESTRADA MD September 16, 2018 18:18
[2018-09-16 19:58] VITALS: BP 146/77
[2018-09-16] MEDS: DOXEPIN 25 MG (SINEquan) CAP PO SCH (21:16)
[2018-09-16] MEDS: ATORVASTATIN 40 MG (LIPITOR) TABLET PO SCH (21:17)
[2018-09-16] MEDS: MONTELUKAST 10 MG (SINGULAIR) TAB PO SCH (21:17)
[2018-09-17 00:51] VITALS: BP 129/89
[2018-09-17] MEDS: inSUlin ASPART (NovoLOG) 1 UNIT/0.01 ML (CHARGE PER UNIT) SC SCH ×3 (00:56→12:34)
[2018-09-17] MEDS: RT-ALBUTEROL/IPRATROPIUM 3 ML (DUONEB) VIAL IH SCH ×4 (02:25→14:47)
[2018-09-17 04:00] VITALS: BP 132/78
[2018-09-17] MEDS: PIPERACILLIN/TAZO 4.5 GM/NS 100 ML IV SCH ×2 (05:13)
[2018-09-17 06:42] LABS: BUN/CREATININE RATIO 24; CALCIUM 8.6 MG/DL (8.5-10.1); CARBON DIOXIDE 30 MMOL/L (21-32); CHLORIDE 101 MMOL/L (98-107); CREATININE SERUM 0.93 MG/DL (0.60-1.30); GFR ESTIMATED > 60; POTASSIUM 4.4 MMOL/L (3.6-5.0); SODIUM 146 MMOL/L (135-145)
[2018-09-17 06:47] LABS: GLUCOSE 59 MG/DL (70-105)
[2018-09-17] MEDS: RT-ADVAIR HFA 115/21 MCG PER PUFF IH SCH (07:07)
--- NOTE | 2018-09-17 07:55 | Pulmonary Progress Note ---
Subjective Time Seen by a Provider: 08:00 Subjective/Events-last exam No complications noted. Sepsis Event Evaluation Height, Weight, BMI Height: 5'10.00" Weight: 450lbs. 9.0oz. 204.460559nu; 60.7 BMI Method:Stated Exam Exam Vital Signs Date Time Temp Pulse Resp B/P (MAP) Pulse Ox O2 Delivery O2 Flow Rate FiO2 09/17/18 07:07 93 Nasal Cannula 4.00 09/17/18 04:00 98.5 80 20 132/78 (96) 96 NIV Bilevel 35.00 09/17/18 02:27 66 15 97 35.00 09/17/18 00:51 98.7 78 16 129/89 (102) 97 NIV Bilevel 09/16/18 22:14 89 22 97 35.00 09/16/18 20:00 High Flow N/C 4.00 09/16/18 19:58 96.4 84 22 146/77 (100) 96 High Flow N/C 4.00 09/16/18 18:38 98 Nasal Cannula 4.00 09/16/18 15:57 96.9 86 20 164/89 (114) 100 High Flow N/C 4.00 09/16/18 15:21 96 Nasal Cannula 4.00 09/16/18 12:00 97.2 96 22 195/103 (133) 97 High Flow N/C 4.00 09/16/18 11:12 91 Nasal Cannula 4.00 09/16/18 08:24 97.5 94 26 190/93 (125) 96 High Flow N/C 4.00 09/16/18 08:15 High Flow N/C 4.00 I & O 09/17/18 07:00 Intake Total 2780 ml Output Total 4055 ml Balance -1275 ml Height & Weight Height: 5'10.00" Weight: 450lbs. 9.0oz. 204.899525rz; 60.7 BMI Method:Stated General Appearance: No Apparent Distress, WD/WN, Chronically ill HEENT: PERRL/EOMI, Normal ENT Inspection, Pharynx Normal, Moist Mucous Membranes Neck: Full Range of Motion, Normal Inspection, Non Tender Respiratory: Chest Non Tender, Lungs Clear, Normal Breath Sounds, No Accessory Muscle Use, No Respiratory Distress, Decreased Breath Sounds Cardiovascular: Regular Rate, Rhythm, No Edema, No Gallop, No JVD, No Murmur, Normal Peripheral Pulses Capillary Refill: Less Than 3 Seconds Gastrointestinal: distended (markedly obese), tenderness Extremity: Normal Capillary Refill, Normal Inspection, Normal Range of Motion, Non Tender, No Calf Tenderness, No Pedal Edema Neurologic/Psychiatric: Alert, Oriented x3, No Motor/Sensory Deficits, Normal Mood/Affect Skin: Normal Color, Warm/Dry, Other (dressing intact lower legs) Lymphatic: No Adenopathy Results Lab Laboratory Tests 09/16/18 05:45 09/17/18 05:53 Assessment/Plan Assessment/Plan Acute on chronic respiratory failure -Vent to Mask QHS and Vapotherm during the day -Pt has home BiPAP -Pt would benefit from home vent to mask. He has severe OHS with chronic respiratory failure. He has multiple hospitalizations. -I contacted [employer] to see if they can get pt a home vent to mask which will help reduce hospitalizations. Pt is high risk for sudden secondary to chronic respiratory failure and OHS. -ABG 54 Pneumonia- cultures show strep bacteremia -D/C Zosyn -Reyes cultures pending -MRSA nasal swab is neg RLD -Last PFT was 07/2018 - Shows severe RLD with asthma and decreased DLCO AsthmaAE - SVNS, Advair, Singulair, Claritin -Pt uses symbicort and proair as out patient -Pt has a nebulizer at home with Duoneb Diastolic CHF EF 60% -Continue home Lasix OHS/VENKATA -PT has BiPAP with 2 liters of oxygen -Last BiPAP down load 08/2018 -AHI 2.1 -Does shows compliance Tobacco use - quit in 1991 Chronic leg wounds - known to Wound care clinic -Wound care is consulted TAMIKA HILARIO DO September 17, 2018 07:55
[2018-09-17 08:35] VITALS: BP 141/79
[2018-09-17] MEDS: ACETAMINOPHEN 500 MG TAB (TYLENOL) PO SCH ×2 (09:33→14:54)
[2018-09-17] MEDS: ASPIRIN E.C. 325 MG (ECOTRIN) TABLET PO SCH (09:33)
[2018-09-17] MEDS: meTOprolol TARTRATE 50 MG (LOPRESSOR) TAB PO SCH (09:33)
[2018-09-17] MEDS: FUROSEMIDE 20 MG (LASIX) TAB PO SCH (09:33)
[2018-09-17] MEDS: DULoxetine 30 MG (CYMBALTA) CAP PO SCH (09:33)
[2018-09-17] MEDS: PREGABALIN 100 MG (LYRICA) CAPSULE PO SCH ×2 (09:33→14:53)
[2018-09-17] MEDS: LORATADINE (CLARITIN) 10 MG TAB PO SCH (09:34)
[2018-09-17] MEDS: MULTIVIT W/MINERALS TAB (THERAGRAN M) PO SCH (09:34)
[2018-09-17] MEDS: FINASTERIDE (PROSCAR) 5 MG TAB PO SCH (09:34)
[2018-09-17] MEDS: A & D OINT 113 GM TUBE TOP SCH (09:34)
[2018-09-17] MEDS: HYDROCHLOROTHIAZIDE 25 MG (HCTZ) TAB PO SCH (09:34)
[2018-09-17] MEDS: KCL 20 MEQ TAB (K-DUR) PO SCH (09:34)
[2018-09-17] MEDS: lisINopril 20 MG (PRINIVIL) TABLET PO SCH (09:38)
[2018-09-17] MEDS: ENOXAPARIN 60 MG/0.6 ML (LOVENOX) SYR SC SCH (09:49)
--- NOTE | 2018-09-17 10:00 | Physical Therapy Daily Note ---
PT Daily Note-Current Subjective Agrees to PT. Reports he hopes to go home today. Reports he feels he will be able to manage his mobility at home, despite needing assist here. Reports his bed is easier to get in and out of and he has always been able to get up. He also reports he has a large recliner and notes that he can sleep in it if he is unable to get in/out of bed. Pt also reports he typically has C follow him at home. Mental Status Patient Orientation: Person, Place, Time, Situation Transfers Therapy Code Descriptions/Definitions Functional [place] Measure: 0=Not Assessed/NA 4=Minimal Assistance 1=Total Assistance 5=Supervision or Setup 2=Maximal Assistance 6=Modified [place] 3=Moderate Assistance 7=Complete [place] Therapy Quality Codes: 6 Independent with activity with or without an assistive device 5 Patient requires set up or clean up by helper. Patient completes activity by themselves 4 Supervision or touching assist (CGA). Muir provide cues , steadying assist 3 The helper provides less than half the effort to complete the activity 2 The helper provides more than half the effort to complete the activity 1 Dependent. The helper does all the effort to complete an activity 7 Patient refused to complete or attempt activity 9 The patient did not perform the activity before the current illness or injury 88 Not attempted due to Medical conditions or safety concerns Transfers (B, C, W/C) (FIM): 3 Supine to/from Sit: 3 (mod assist to get up from a supine surface without using a bedrail; pt then attempted to use the bedrail and was able to get up easier but with still min to mod assist from supine. ) Sit to/from Stand: 5 (SBA with sit to stand from the bed and from the toilet. Pt uses the grab bar to pull up from the toilet. ) Educated pt on the need to be self sufficient at home and concerns that he cannot get out of bed. Also told pt about DME bed cane he could try. Weight Bearing Right Lower Extremity: Right Full Weight Bearing Left Lower Extremity: Left Full Weight Bearing Gait Training Gait Assistive Device: FWW Pt ambulated from bed to bathroom (30 ft) and then walked 60 ft with FWW with SBA. Pt is steady with gait, wide SEAMUS and feet in ER but no noted LOB or safety concerns. Treatments Bed mobility, transfers and gait. Education on importance of safety at home and need to be able to transfer. Assessment Pt requires assist to get out of bed but once up is SBA with mobility. Concern regarding bed mobility at home as he lives with his dad and he will not be able to assist him. Discussed mobility status with social welfare research worker, Chica Singh and recommende d bed cane as well as [facility] PT. PT Short Term Goals Short Term Goals Time Frame: September 17, 2018 Transfers (B,C,W/C) (FIM): 6 PT Eyelet Maker Goals Eyelet Maker Goals PT Eyelet Maker Goals Time Frame: Sep 24, 2018 Gait (FIM): 5 Gait distance (FIM): 9=269-07 ft Distance: 75 Gait Level of Assist: 6 Gait Assistive Device: FWW PT Plan Problem List Problem List: Activity Tolerance, Functional Strength, Safety, Gait, Transfer, Bed Mobility Treatment/Plan Treatment Plan: Continue Plan of Care (vs DC) Treatment Plan: Bed Mobility, Education, Functional Activity Ghulam, Functional Strength, Gait, Safety, Therapeutic Exercise, Transfers Treatment Duration: Sep 24, 2018 Frequency: 6 times per week Estimated Hrs Per Day: .25 hour per day Patient and/or Family Agrees t: Yes Safety Risks/Education Patient Education: Transfer Techniques, Safety Issues Teaching Recipient: Patient Teaching Methods: Discussion Response to Teaching: Verbalize Understanding Discussed need to be mod indep with all mobility, pt wants to return home today. Discharge Recommendations Therapy D/C Recommendations: Physical Therapy Home Care (and a bed cane) Time/GCodes Time In: 1005 Time Out: 1030 Total Billed Treatment Time: 25 Total Billed Treatment visit FA 25 ILA CHAPMAN PT September 17, 2018 10:00
[2018-09-17 12:00] VITALS: BP 163/84
--- NOTE | 2018-09-17 14:56 | Occupational Ther Daily Note ---
OT Current Status-Daily Note Subjective Pt sitting in chair, agrees to therapy. Pt states he hopes to go home today. Mental Status/Objective Therapy Code Descriptions/Definitions Functional [place] Measure: 0=Not Assessed/NA 4=Minimal Assistance 1=Total Assistance 5=Supervision or Setup 2=Maximal Assistance 6=Modified [place] 3=Moderate Assistance 7=Complete [place] Attachments: Oxygen Other Treatment Pt completed bilateral UE exercises to increase strength and activity tolerance needed for functional task completion. Pt able to recall three exercises from previous session. Pt performed four exercises x10 reps with moderate resistance theraband. Brief rest breaks between exercises. Pt states he will be having home health therapy when he discharges. Pt states he has no questions or concerns at this time regarding ADLs or home safety. Pt sitting in chair with needs met and RT present after session. OT Short Term Goals Short Term Goals Transfers (B,C,W/C) (FIM): 6 1=Demonstrate adherence to instructed precautions during ADL tasks. 2=Patient will verbalize/demonstrate understanding of assistive devices/modifications for ADL. 3=Patient will improve strength/tolerance for activity to enable patient to perform ADL's. OT Trauma Program Manager Goals Alf Goals Time Frame: Sep 25, 2018 Bathing(FIM): 5 Upper Body Dressing(FIM): 5 Lower Body Dressing(FIM): 5 Toileting(FIM): 5 Toilet/Commode Transfer(FIM): 5 Additional Goals: 1-Demonstrate ADL Tasks, 2-Verbalize Understanding, 3- ImproveStrength/Ghulam 1=Demonstrate adherence to instructed precautions during ADL tasks. 2=Patient will verbalize/demonstrate understanding of assistive devic es/modifications for ADL. 3=Patient will improve strength/tolerance for activity to enable patient to perform ADL's. OT Education/Plan Problem List/Assessment Pt to benefit from skilled OT intervention for ADL training, transfers, strengthening, and safety education to increase level of independence and allow safe discharge. Discharge Recommendations Plan/Recommendations: Continue POC Treatment Plan/Plan of Care Patient would benefit from OT for education, treatment and training to promote independence in ADL's, mobility, safety and/or upper extremity function for ADL's. Plan of Care: ADL Retraining, Functional Mobility, UE Funct Exercise/Act Treatment Duration: Sep 25, 2018 Frequency: 5 times per week Estimated Hrs Per Day: .25 hour per day Agreement: Yes Rehab Potential: Good Time/GCodes Start Time: 14:35 Stop Time: 14:49 Total Time Billed (hr/min): 14 Billed Treatment Time 1 visit, EX(14minutes) DORENE GILLESPIE OT September 17, 2018 14:56
[2018-09-17] MEDS ORDERED: LISI-552 PO (14:59)
[2018-09-17] MEDS ORDERED: MONT10TA24 PO (14:59)
[2018-09-17] MEDS ORDERED: HYDR25TA4 PO (14:59)
--- NOTE | 2018-09-17 15:02 | D/C HH Face to Face Order ---
D/C Face to Face Orders Instructions for Patient [facility], Patient Instructions/FollowUp: Follow up with Feliz Lowe on 09/22 at 10:40 am. Physician to follow Patient: Feliz Lowe APRN Discharge Diet for Home: ADA Diet Patient Problems: Diabetes, Acute on chronic respiratory failure, obesity hypoventilation syndrome, COPD, HTN, Chronic venous stasis ulcers Patient Data-Allergies,Ht & Wt Patient Allergies: Coded Allergies: Sulfa (Sulfonamide Antibiotics) (Unverified Allergy, Unknown, 03/21/14) latex (Unverified Allergy, Unknown, 03/21/14) raspberry (Unverified Allergy, Unknown, 03/21/14) zinc oxide (Unverified Allergy, Unknown, 03/21/14) Uncoded Allergies: ARTIFICIAL SWEETNERS (Allergy, Unknown, 03/21/14) Height (Feet): 5 Height (Inches): 10.00 Weight (Pounds): 450 Weight (Ounces): 9.0 Home Health Need/Face to Face Date of Face to Face: September 17, 2018 Clinical Findings: Generalized weakness and fatigue, Shortness of breath I have seen Pt [id number]: Yes Discharged To: Home Diagnosis/Conditions: See patient problems Patient is Homebound due to: Muscle weakness, Pain w/ambulation, Shortness of breath/distress Homebound Status Due to the above stated illness, injury or surgical procedure (medical condition or diagnosis) and associated clinical findings, the patient is homebound because of his/her inability to leave home except with aid of a supportive device and/or person AND leaving the home requires a considerable and taxing effort or is medically contraindicated. Pt req the following assistanc: Aid of another person, Walker Home Health Nursing Orders Home Health Services Order: Nursing Services, Sound Assistant-Evaluate & Treat, Physical Therapy-Evaluate & Treat Home Health Infusion Therapy Line Start Date: September 10, 2018 Therapy Orders Therapy Orders: OT (must have SN or PT order), Physical Therapy, PT to assess for OT Therapy Specific Orders: Teach enviro modifications/safety, Gait training, Increase strength/endurance Certify Stmt I certify that this patient is under my care and that I, a nurse practitioner or a physician; a assistant production editor working with me, had a face to face encounter that - meets the physician face to face encounter requirements with this patient as dated. JOHN BUCIO MD September 17, 2018 15:02
[2018-09-17] MEDS ORDERED: CANE1EAC26 MC (15:06)
--- NOTE | 2018-09-17 15:35 | NUR ---
CM/SS. Patient discharged to home today per his plan. HHC: Resumed with [facility] and spoke with RN/Kenyatta there about patient's care plan. DME: Dr. Perez and [facility] HME/Talya were in the process of pursuing a vent to mask for patient, this will be submitted for preauthorization through [facility]. Patient understands to use his BiPAP Auto until HME RT updates about new DME. He also has home O2, reminded patient to have transport person bring his portable O2 for use getting home. Regarding DME, explored with our HME/Sharron. Patient got new home O2 at hospital discharge 07/08/18. Dr. Perez's office arranged for BiPAP Auto and this was set up for patient at his home 07/22/18. There was indication that patient may have been using older DME from his home dating back to 2014 set up and RT will explore this when delivering the trilogy and encourage keeping old from new and discarding old for safety. Discussed fully with patient and involved agencies.
[2018-09-17 16:00] VITALS: BP 136/82
--- NOTE | 2018-09-17 17:26 | Discharge Summary ---
Diagnosis/Chief Complaint Date of Admission September 10, 2018 at 14:55 Date of Discharge September 17, 2018 Admission Diagnosis Admission Diagnosis Acute and chronic respiratory failure Debility Morbid obesity Pneumonia COPD exacerbation Discharge Diagnosis See problem list Problems/Diagnosis: (1) Type II diabetes mellitus with complication Assessment & Plan: Diabetic diet, glipizide, insulin. 09/16 has been having hypoglycemia, will decrease glipizide to 10 mg and hold levemir. 09/17 patient stated he sometimes has to adjust or hold his insulin at home and will do so on his own, resumed home meds anticipating his diet will be similar when he goes home to prior to admission. 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 Echo done 08/29/18 with normal EF and diastolic parameters. On furosemide chronically. Using bipap and vapotherm. 09/15 weaned to high flow nasal cannula, solumedrol 40 q6 On discharge tolerating nasal cannula during the day, working on getting vent to mask per Dr. Perez (waiting on insurance coverage at d/c, resumed home bipap). Solumedrol tapered off. Status: Resolved Resolution Date/Time: 09/17/18 @ 16:37 (3) Pneumonia Assessment & Plan: On zosyn and vancomycin 09/14 on zosyn, improving 09/15 on zosyn, continuing to improve Completed course of zosyn while inpatient. Status: Resolved Resolution Date/Time: 09/17/18 @ 16:37 (4) Bacteremia due to group B Streptococcus Assessment & Plan: Positive blood cultures, covered with zosyn. Status: Resolved Resolution Date/Time: 09/17/18 @ 16:37 (5) COPD with acute exacerbation Assessment & Plan: Pulm consulted, on solumedrol, Advair and duonebs. 09/16 solumedrol tapered off Status: Resolved Resolution Date/Time: 09/17/18 @ 16:37 (6) Fibromyalgia Status: Chronic (7) VENKATA on CPAP Status: Chronic (8) Chronic cutaneous venous stasis ulcer Assessment & Plan: Wound care consulted, dressing changes per recommendations. Status: Chronic (9) Hypertension Assessment & Plan: 09/14- added lisinopril yesterday, had hyperkalemia on labs today, will change to hydrochlorothiazide. Continued with hypertension, given on HCTZ, lisinopril added back, potassium remained okay and he was discharged on both. Qualifiers: Qualified Codes: I10 - Essential (primary) hypertension Status: Chronic (10) LIMITATION OF ACTIVITIES DUE TO DISABILITY Assessment & Plan: Pt not interested in placement anywhere, wanting to go home, in spite of great difficulty with even getting out of bed along with chronic wounds and intermittent urinary incontinence. He was discharged with home health. Status: Chronic Chief Complaint/HPI Chief Complaint/HPI From Dr. Martinez's H&P HPI: This is a 62yoWM known to me from recent hospital stays, weekly admissions now, who has a h/o morbid obesity maintained in biPAP at home who presented to the ER with fever and wheezing found to have respirato ry insufficiency and pneumonia requiring biPAP in ICU along with abx. Overall his prognosis remains very poor without the loss of at least 200# of weight. Currently he is doing better and feels like he is breathing better. Discharge Summary-Simple/Stand Consultations Dr. Perez/Pulmonology Discharge Physical Examination Allergies: Coded Allergies: Sulfa (Sulfonamide Antibiotics) (Unverified Allergy, Unknown, 03/21/14) latex (Unverified Allergy, Unknown, 03/21/14) raspberry (Unverified Allergy, Unknown, 03/21/14) zinc oxide (Unverified Allergy, Unknown, 03/21/14) Uncoded Allergies: ARTIFICIAL SWEETNERS (Allergy, Unknown, 03/21/14) Vitals & I&Os Vital Sign - Last 12Hours Date Time Temp Pulse Resp B/P (MAP) Pulse Ox O2 Delivery O2 Flow Rate FiO2 09/17/18 16:00 97.4 86 18 136/82 (100) 99 High Flow N/C 4.00 09/15/18 08:20 30 Intake and Output 09/17/18 00:00 Intake Total 2260 ml Output Total 4050 ml Balance -1790 ml General Appearance: Alert Respiratory: Clear to Auscultation, Normal Air Movement Cardiovascular: Regular Rate, No Murmurs Neuro: Normal Speech Psych/Mental Status: Mental Status NL Hospital Course See final discharge diagnosis. Discharge Instructions to patient/family Please see electronic discharge instructions given to patient. Discharge Medications Reviewed and agree with Discharge Medication list on patient's Discharge Instruction sheet Clinical Quality Measures DVT/VTE Risk/Contraindication: Risk Factor Score Per Nursin RFS Level Per Nursing on Admit: 3=High Copy Copies To 1: TAMERA Roblero BETHANY N MD September 17, 2018 17:26
--- NOTE | 2018-09-21 08:34 | Physician Query Clarification ---
PQ-Further Specificity Admission/Discharge Admission Date: September 10, 2018 at 14:55 Discharge Date: September 17, 2018 at 18:29 The medical record reflects the following clinical scenario: History/Risk Factors: Pneumonia, Acute/chronic respiratory failure, COPD, HTN w/ diastolic CHF, ulcers Capo calf, Rt great toe diabetic ulcer Clinical Findings: Lactic 1.53, WBC 14.7>16.3, P 96, R 36, Blood culture Strep group B Treatment: IV Piperacillin, Vancomycin Question: Can you further specify bacteremia secondary to group B strep per the clinical indicators above? Please document a response in the Progress Notes or Discharge Summary. 1. Bacteremia meaning Group B strep Sepsis 2. Bacteremia secondary to group B strep with no sepsis 3. Other, with explanation of the clinical findings. 4. Clinically undetermined, no explanation for the clinical findings. PHYSICIAN RESPONSE Can you specify per above: 1 Explanation/Clinical Findings 1 Please remember a lack of response to the above will prompt a phone page by CDI/Coding staff. In responding to this query, please exercise your independent professional judgment. The purpose of this communication is to more accurately reflect the complexity of your patients condition. The fact that a question is asked does not imply that any particular answer is desired or expected. Thank you for your timely response to this clarification. Requestors name: Dorcas THIS PHYSICIAN QUERY FORM IS A PERMANENT PART OF THE MEDICAL RECORD DORCAS CARDENAS Sep 21, 2018 08:34 JOHN BUCIO MD Sep 28, 2018 19:54
--- NOTE | 2018-09-21 08:41 | Physician Query Clarification ---
PQ-Further Specificity Admission/Discharge Admission Date: September 10, 2018 at 14:55 Discharge Date: September 17, 2018 at 18:29 The medical record reflects the following clinical scenario: History/Risk Factors: Hypertension w/diastolic heart failure Clinical Findings: BNP 211.4 Treatment: Lasix 60 mg IVP Question: Can you further specify diastolic heart failure per the clinical indicators above? Please document a response in the Progress Notes or Discharge Summary. 1. acute diastolic heart failure 2. chronic diastolic heart failure 3. acute on chronic diastolic heart failure 4. Other, with explanation of the clinical findings. 5. Clinically undetermined, no explanation for the clinical findings. PHYSICIAN RESPONSE Can you specify per above: 2 Explanation/Clinical Findings 2 Please remember a lack of response to the above will prompt a phone page by CDI/Coding staff. In responding to this query, please exercise your independent professional judgment. The purpose of this communication is to more accurately reflect the complexity of your patients condition. The fact that a question is asked does not imply that any particular answer is desired or expected. Thank you for your timely response to this clarification. Requestors name: Dorcas THIS PHYSICIAN QUERY FORM IS A PERMANENT PART OF THE MEDICAL RECORD DORCAS CARDENAS Sep 21, 2018 08:41 JOHN BUCIO MD Sep 28, 2018 19:55
== END 2018-09-17 18:29 | disposition home health service (06) | DRG 871 ==
LOC: EDUNIT# 13:41 → ER 13:42 → ICU 14:55 → 4TH 09-11 09:58
PROVIDERS: ADMIT Internal Medicine; ATTEND Family Medicine
DX: A40.1 Sepsis due to streptococcus, group B (principal); J15.3 Pneumonia due to streptococcus, group B; J96.21 Acute and chronic respiratory failure with hypoxia; J96.22 Acute and chronic respiratory failure with hypercapnia; J44.0 Chronic obstructive pulmonary disease with (acute) lower respiratory infection; J44.1 Chronic obstructive pulmonary disease with (acute) exacerbation; E66.2 Morbid (severe) obesity with alveolar hypoventilation; Z68.44 Body mass index [BMI] 60.0-69.9, adult; I11.0 Hypertensive heart disease with heart failure; I50.32 Chronic diastolic (congestive) heart failure; L97.219 Non-pressure chronic ulcer of right calf with unspecified severity; D72.829 Elevated white blood cell count, unspecified; L97.519 Non-pressure chronic ulcer of other part of right foot with unspecified severity; L97.229 Non-pressure chronic ulcer of left calf with unspecified severity; E11.40 Type 2 diabetes mellitus with diabetic neuropathy, unspecified; E11.621 Type 2 diabetes mellitus with foot ulcer; I87.2 Venous insufficiency (chronic) (peripheral); E11.649 Type 2 diabetes mellitus with hypoglycemia without coma; E78.00 Pure hypercholesterolemia, unspecified; M79.7 Fibromyalgia; M19.91 Primary osteoarthritis, unspecified site; Z79.4 Long term (current) use of insulin; Z91.19 Patient's noncompliance with other medical treatment and regimen; Z87.891 Personal history of nicotine dependence
CPT/HCPCS: 36415; 36600; 51702; 71045; 80048; 80053; 80202; 81000; 82040; 82805; 82962; 83605; 83735; 83880; 84100; 84450; 84460; 85007; 85025; 85027; 85610; 85730; 86141; 87040; 87077; 87081; 87088; 87804; 94640; 94660; 94760; 96365; 96375; 99291

== ENCOUNTER → 2018-09-22 | Outpatient (CLI) | payer MEDICAID ==
[~2018-09-22] MED LIST changes: +CANE1EAC26 MC; +LISI-552 PO; +MONT10TA24 PO
== END ==
LOC: WOUNDCARE 13:42
PROVIDERS: ATTEND Surgery
DX: E11.621 Type 2 diabetes mellitus with foot ulcer (principal); L97.512 Non-pressure chronic ulcer of other part of right foot with fat layer exposed; I87.333 Chronic venous hypertension (idiopathic) with ulcer and inflammation of bilateral lower extremity; L97.222 Non-pressure chronic ulcer of left calf with fat layer exposed; L97.211 Non-pressure chronic ulcer of right calf limited to breakdown of skin; E11.42 Type 2 diabetes mellitus with diabetic polyneuropathy; I89.0 Lymphedema, not elsewhere classified; E66.01 Morbid (severe) obesity due to excess calories; Z68.43 Body mass index [BMI] 50.0-59.9, adult
CPT/HCPCS: 11042

== ENCOUNTER → 2018-10-06 | Outpatient (CLI) | payer MEDICAID | LOC: WOUNDCARE 12:52 | PROVIDERS: ATTEND Surgery | DX: E11.621 Type 2 diabetes mellitus with foot ulcer (principal); L97.512 Non-pressure chronic ulcer of other part of right foot with fat layer exposed; I87.333 Chronic venous hypertension (idiopathic) with ulcer and inflammation of bilateral lower extremity; E11.622 Type 2 diabetes mellitus with other skin ulcer; L97.222 Non-pressure chronic ulcer of left calf with fat layer exposed; L97.211 Non-pressure chronic ulcer of right calf limited to breakdown of skin; E11.42 Type 2 diabetes mellitus with diabetic polyneuropathy; I89.0 Lymphedema, not elsewhere classified; E66.01 Morbid (severe) obesity due to excess calories; Z68.43 Body mass index [BMI] 50.0-59.9, adult | CPT/HCPCS: 11042 ==

== ENCOUNTER → 2018-10-20 | Outpatient (CLI) | payer MEDICAID | LOC: WOUNDCARE 13:26 | PROVIDERS: ATTEND Surgery | DX: E11.621 Type 2 diabetes mellitus with foot ulcer (principal); L97.512 Non-pressure chronic ulcer of other part of right foot with fat layer exposed; I87.333 Chronic venous hypertension (idiopathic) with ulcer and inflammation of bilateral lower extremity; E11.622 Type 2 diabetes mellitus with other skin ulcer; L97.222 Non-pressure chronic ulcer of left calf with fat layer exposed; L97.211 Non-pressure chronic ulcer of right calf limited to breakdown of skin; E11.42 Type 2 diabetes mellitus with diabetic polyneuropathy; I89.0 Lymphedema, not elsewhere classified; E66.01 Morbid (severe) obesity due to excess calories; Z68.43 Body mass index [BMI] 50.0-59.9, adult | CPT/HCPCS: 11042 ==

== ENCOUNTER → 2018-11-05 | Outpatient (CLI) | payer MEDICAID | LOC: WOUNDCARE 09:57 | PROVIDERS: ATTEND Surgery | DX: E11.621 Type 2 diabetes mellitus with foot ulcer (principal); E11.42 Type 2 diabetes mellitus with diabetic polyneuropathy; E11.52 Type 2 diabetes mellitus with diabetic peripheral angiopathy with gangrene; I96 Gangrene, not elsewhere classified; I87.332 Chronic venous hypertension (idiopathic) with ulcer and inflammation of left lower extremity; L97.222 Non-pressure chronic ulcer of left calf with fat layer exposed; L97.512 Non-pressure chronic ulcer of other part of right foot with fat layer exposed; E66.01 Morbid (severe) obesity due to excess calories; I89.0 Lymphedema, not elsewhere classified | CPT/HCPCS: 11042 ==

== ENCOUNTER → 2018-12-01 | Outpatient (CLI) | payer MEDICAID ==
[~2018-12-01] MED LIST changes: -DULO30CA48 PO; +DULO30CA49 PO; -DULO60CA58 PO; +DULO60CA59 PO; -TIZA4TAB3 PO; +TIZA4TAB4 PO
--- NOTE | 2018-12-01 14:16 | Diagnostic Imaging Report ---
Indication: Hypoxemia PA and lateral chest. Heart size and pulmonary vascularity are normal. Lungs are clear. There are no effusions or pneumothoraces. There is minimal atelectasis along the minor fissure. Impression: Minimal right perihilar atelectasis. This is improved since . Dictated by: Dictated on workstation # [id number]
== END ==
LOC: RAD 12:53
PROVIDERS: ATTEND Nurse Practitioner Family
DX: R09.02 Hypoxemia (principal)
CPT/HCPCS: 71046

== ENCOUNTER → 2018-12-01 | Outpatient (CLI) | payer MEDICAID | LOC: WOUNDCARE 13:17 | PROVIDERS: ATTEND Surgery | DX: E11.621 Type 2 diabetes mellitus with foot ulcer (principal); E11.42 Type 2 diabetes mellitus with diabetic polyneuropathy; E11.52 Type 2 diabetes mellitus with diabetic peripheral angiopathy with gangrene; I96 Gangrene, not elsewhere classified; L97.512 Non-pressure chronic ulcer of other part of right foot with fat layer exposed; L97.421 Non-pressure chronic ulcer of left heel and midfoot limited to breakdown of skin; I87.323 Chronic venous hypertension (idiopathic) with inflammation of bilateral lower extremity; E66.01 Morbid (severe) obesity due to excess calories | CPT/HCPCS: 11042 ==

== ENCOUNTER 2018-12-13 13:20 | Inpatient (IN) | payer MEDICAID ==
[2018-12-13] VITALS (13 sets, daily range): BP systolic 148–221; BP diastolic 79–136
[~2018-12-13] VITALS: Ht 177.8 cm; Wt 186.0 kg
[2018-12-13] MEDS ORDERED: RT-ALBUTEROL/IPRATROPIUM 3 ML (DUONEB) VIAL ONE ×2 (13:27→19:49)
[2018-12-13] MEDS ORDERED: NS IV 1000 ML 1,000 ML IV SCH ×2 (13:35)
[2018-12-13] MEDS ORDERED: NS IV 500 ML 500 ML IV ONE (13:35)
--- NOTE | 2018-12-13 13:42 | ED General ---
General Chief Complaint: Trauma-Non Activation Stated Complaint: FALL Source of Information: Patient, EMS Exam Limitations: No Limitations History of Present Illness Date Seen by Provider: Dec 13, 2018 Time Seen by Provider: 13:20 Initial Comments Patient presents to ER by EMS and fire with chief complaint of last night he was sitting on the side of his bed and slid off the bed falling onto his right hip. He is not having any pain in his hip but was unable to get up on his own. He later overnight. In the morning he was able to summons EMS and they helped him back to bed. He refused to come in at that time but then called back saying he wanted to be seen in the ER after his home health nurse examined him. He has a fever 100.6 cough and a history of COPD. He denies a history of heart disease, chest pain, heart failure. His legs have chronic venous stasis ulcers being addressed by Dr. Ruelas. He is known to [facility], primary care. He's been doctored recently with topical eyedrops for left pinkeye. He typically relies on 3 L per nasal cannula for oxygen. Allergies and Home Medications Allergies Coded Allergies: Sulfa (Sulfonamide Antibiotics) (Unverified Allergy, Unknown, 03/21/14) latex (Unverified Allergy, Unknown, 03/21/14) raspberry (Unverified Allergy, Unknown, 03/21/14) zinc oxide (Unverified Allergy, Unknown, 03/21/14) Uncoded Allergies: ARTIFICIAL SWEETNERS (Allergy, Unknown, 03/21/14) Home Medications Acetaminophen 500 Mg Tablet, 1,000 MG PO TID, (Reported) TAKES 2 (500MG) TABLETS Aspirin 325 Mg Tablet.dr, 325 MG PO DAILY, (Reported) Atorvastatin Calcium 40 Mg Tablet, 40 MG PO HS, (Reported) B Complex with Vitamin C 1 Each Tablet, 1 TAB PO DAILY, (Reported) Budesonide/Formoterol Fumarate 10.2 Gm Hfa.aer.ad, 2 PUFF INH BID, (Reported) Doxepin HCl 100 Mg Capsule, 200 MG PO HS, (Reported) TAKES 2 (100MG) CAPSULES Duloxetine HCl 60 Mg Capsule.dr, 60 MG PO DAILY, (Reported) Finasteride 5 Mg Tablet, 5 MG PO DAILY, (Reported) Furosemide 20 Mg Tablet, 40 MG PO DAILY, (Reported) TAKES 2 (20MG) TABLETS Furosemide 20 Mg Tablet, 20 MG PO 1800, (Reported) Hydrochlorothiazide 25 Mg Tablet, 25 MG PO DAILY Prescribed by: JOHN BUCIO on 09/17/181458 Insulin Glargine,Hum.rec.anlog 100 Unit/1 Ml Insuln.pen, 80 UNITS SC HS, (Reported) Lidocaine 1 Each Adh..patch, 2-3 PATCH TOP DAILY PRN for PAIN-MODERATE, (Reported) Lisinopril 20 Mg Tablet, 20 MG PO DAILY Prescribed by: JOHN BUCIO on 09/17/181458 Metoprolol Tartrate 100 Mg Tablet, 100 MG PO BID, (Reported) Montelukast Sodium 10 Mg Tablet, 10 MG PO HS Prescribed by: JOHN BUCIO on 09/17/181458 Polyethylene Glycol 3350 17 Gm Powd.pack, 17 GM PO MoWeFr, (Reported) Pregabalin 200 Mg Capsule, 200 MG PO TID, (Reported) Tizanidine HCl 4 Mg Tablet, 4-6 MG PO TID, (Reported) TAKES 1 TO 1 & 1/2 (4MG) TABLETS Patient Home Medication List Home Medication List Reviewed: Yes Review of Systems Review of Systems Constitutional: chills, fever, malaise EENTM: No ear discharge, No ear pain Respiratory: cough, phlegm, short of breath, wheezing Cardiovascular: No chest pain; edema; No syncope, No vascular heart diseas Gastrointestinal: No abdominal pain, No constipation, No diarrhea Genitourinary: No discharge, No dysuria Musculoskeletal: No back pain, No joint pain Skin: see HPI; No pruritus, No rash Past Lxopmsh-Aiorqf-Kmxoxv Hx Patient Social History Alcohol Use: Denies Use Recreational Drug Use: No Smoking Status: Former Smoker Type Used: Cigars, Cigarettes 2nd Hand Smoke Exposure: No Recent Foreign Travel: No Contact w/Someone Who Travel: No Recent Hopitalizations: Yes (RELEASED ON THURSDAY) Immunizations Up To Date Tetanus Booster (TDap): Unknown Date of Pneumonia Vaccine: Apr 20, 2016 Date of Influenza Vaccine: Jan 18, 2018 Seasonal Allergies Seasonal Allergies: No Past Medical History Surgeries: No Respiratory: Yes Sleep Apnea, COPD Currently Using CPAP: No Currently Using BIPAP: Yes Cardiac: Yes High Cholesterol, Hypertension Neurological: Yes Neuropathy Genitourinary: No Gastrointestinal: No Musculoskeletal: Yes (CHRONIC GENERALIZED PAIN ) Arthritis, Fibromyalgia Endocrine: Yes (MORBID OBESITY) Diabetes, Insulin dep HEENT: No Cancer: No Psychosocial: No Integumentary: Yes (CHRONIC LEG WOUNDS) Blood Disorders: No Family Medical History Heart Disease, Cancer, CAD Over 55 Years Old, Diabetes, Hypertension, Stroke, Vascular Disease Physical Exam-Suspected Sepsis Physical Exam Vital Signs Vital Signs - First Documented 12/13/18 12/13/18 13:35 13:42 Temp 100.6 Pulse 114 Resp 22 B/P (MAP) 169/109 (129) Pulse Ox 95 O2 Delivery Room Air O2 Flow Rate 6.00 FiO2 100 Capillary Refill : Height, Weight, BMI Height: 5'10.00" Weight: 450lbs. 9.0oz. [id number]; 60.7 BMI Method:Stated General Appearance: Mild Distress, Obese Eyes: Left Eye Other (erythema, periorbital edema and conjunctival injection); Bilateral Eye PERRL, Bilateral Eye EOMI HEENT: PERRL/EOMI, TMs Normal, Normal ENT Inspection, Pharynx Normal, Moist Mucous Membranes Neck: Full Range of Motion, Normal Inspection Respiratory: Accessory Muscle Use, Decreased Breath Sounds, Respiratory Distress (mild to moderate), Wheezing Cardiovascular: Regular Rate, Rhythm, No Edema, Normal Peripheral Pulses Gastrointestinal: Normal Bowel Sounds, Non Tender, Soft Genital/Rectal: Normal Genital Exam, Other (thin, dasilva-colored mucus discharge. Cervix has a multiparous, round open os with clear mucus.) Extremity: Normal Capillary Refill, No Calf Tenderness, Other (venous stasis ulcer wraps on bilateral lower extremities with pink non-warm non-red, woody edema) Neurologic/Psychiatric: Alert, Oriented x3, No Motor/Sensory Deficits Skin: normal color, warm/dry Focused Exam Sepsis Stage: Severe Sepsis Possible Source: Unknown Lactate Level 12/13/18 13:24: Lactic Acid Level 2.25*H 12/13/18 15:34: Lactic Acid Level 1.06 Time of Focused Exam: 17:02 Respiratory: No Accessory Muscle Use, Decreased Breath Sounds, Respiratory Distress (mild-mod), Wheezing Cardiovascular: Regular Rate, Rhythm, Normal Peripheral Pulses, Tachycardia Capillary Refill: Less Than 3 Seconds Peripheral Pulses: 2+ Radial Pulses (R), 2+ Radial Pulses (L) Skin: normal color, ulcerations Lactic Acid Level Laboratory Tests Test 12/13/18 15:34 Lactic Acid Level 1.06 MMOL/L (0.50-2.00) Within 3hrs of presentation: Admin fluids, Admin 30ml/kg IBW due to BMI>30 (277# adjusted ideal body weight), Admin ABX, Blood cultures prior to ABX's, Focus exam, Lactate level Progress/Results/Core Measures Suspected Sepsis SIRS Temperature: Pulse: Respiratory Rate: Laboratory Tests 12/13/18 13:24: White Blood Count 9.0 Blood Pressure / Mean: 12/13/18 13:24: Lactic Acid Level 2.25*H 12/13/18 15:34: Lactic Acid Level 1.06 Laboratory Tests 12/13/18 13:24: Creatinine 1.52H, INR Comment 1.7H, Platelet Count 171, Total Bilirubin 1.6H Results/Orders Lab Results Laboratory Tests Test 12/13/18 13:24 12/13/18 13:34 12/13/18 13:37 12/13/18 15:34 Range/Units White Blood Count 9.0 4.3-11.0 10^3/uL Red Blood Count 3.98 L 4.35-5.85 10^6/uL Hemoglobin 11.0 L 13.3-17.7 G/DL Hematocrit 36 L 40-54 % Mean Corpuscular Volume 91 80-99 FL Mean Corpuscular Hemoglobin 28 25-34 PG Mean Corpuscular Hemoglobin Concent 31 L 32-36 G/DL Red Cell Distribution Width 16.5 H 10.0-14.5 % Platelet Count 171 130-400 10^3/uL Mean Platelet Volume 10.4 7.4-10.4 FL Neutrophils (%) (Auto) 86 H 42-75 % Lymphocytes (%) (Auto) 6 L 12-44 % Monocytes (%) (Auto) 7 0-12 % Eosinophils (%) (Auto) 0 0-10 % Basophils (%) (Auto) 0 0-10 % Neutrophils # (Auto) 7.7 1.8-7.8 X 10^3 Lymphocytes # (Auto) 0.6 L 1.0-4.0 X 10^3 Monocytes # (Auto) 0.7 0.0-1.0 X 10^3 Eosinophils # (Auto) 0.0 0.0-0.3 10^3/uL Basophils # (Auto) 0.0 0.0-0.1 10^3/uL Neutrophils % (Manual) 85 % Lymphocytes % (Manual) 8 % Monocytes % (Manual) 4 % Eosinophils % (Manual) 0 % Basophils % (Manual) 0 % Band Neutrophils 3 % Anisocytosis SLIGHT Prothrombin Time 20.3 H 12.2-14.7 SEC INR Comment 1.7 H 0.8-1.4 Activated Partial Thromboplast Time 34 24-35 SEC Sodium Level 142 135-145 MMOL/L Potassium Level 4.6 3.6-5.0 MMOL/L Chloride Level 100 98-107 MMOL/L Carbon Dioxide Level 30 21-32 MMOL/L Anion Gap 12 5-14 MMOL/L Blood Urea Nitrogen 27 H 7-18 MG/DL Creatinine 1.52 H 0.60-1.30 MG/DL Estimat Glomerular Filtration Rate 47 BUN/Creatinine Ratio 18 Glucose Level 139 H 70-105 MG/DL Lactic Acid Level 2.25 *H 1.06 0.50-2.00 MMOL/L Calcium Level 9.9 8.5-10.1 MG/DL Corrected Calcium 9.9 8.5-10.1 MG/DL Total Bilirubin 1.6 H 0.1-1.0 MG/DL Aspartate Amino Transf (AST/SGOT) 24 5-34 U/L Alanine Aminotransferase (ALT/SGPT) 13 0-55 U/L Alkaline Phosphatase 79 40-136 U/L Total Creatine Kinase 431 H 30-200 U/L Troponin I 0.035 H <0.028 NG/ML B-Type Natriuretic Peptide 187.6 H <100.0 PG/ML Total Protein 7.4 6.4-8.2 GM/DL Albumin 4.0 3.2-4.5 GM/DL Glucometer 140 H 70-110 MG/DL Blood Gas Puncture Site UNK Blood Gas Patient Temperature 100.6 Arterial Blood pH 7.39 7.37-7.43 Arterial Blood Partial Pressure CO2 51 H 35-45 MMHG Arterial Blood Partial Pressure O2 79 79-93 MMHG Arterial Blood HCO3 30 H 23-27 MMOL/L Arterial Blood Total CO2 31.0 21.0-31.0 MMOL/L Arterial Blood Oxygen Saturation 95 94-100 % Arterial Blood Base Excess 4.9 H -2.5-2.5 MMOL/L Vitaly Test YES-POS Blood Gas Ventilator Setting NO Blood Gas Inspired Oxygen 6% Test 12/13/18 16:49 Range/Units Urine Color YELLOW Urine Clarity SLIGHTLY CLOUDY Urine pH 5 5-9 Urine Specific [place] 1.020 1.016-1.022 Urine Protein 2+ H NEGATIVE Urine Glucose (UA) NEGATIVE NEGATIVE Urine Ketones 1+ H NEGATIVE Urine Nitrite NEGATIVE NEGATIVE Urine Bilirubin NEGATIVE NEGATIVE Urine Urobilinogen 1 NORMAL MG/DL Urine Leukocyte Esterase 1+ H NEGATIVE Urine RBC (Auto) 1+ H NEGATIVE Urine RBC NONE /HPF Urine WBC 5-10 H /HPF Urine Crystals NONE /LPF Urine Bacteria MODERATE H /HPF Urine Casts PRESENT /LPF Urine Hyaline Casts 0-2 H /LPF Urine Mucus SMALL H /LPF Urine Culture Indicated CULTURE PENDING Micro Results Microbiology 12/13/18 Influenza Types A,B Antigen (EDUARD) - Final, Complete My Orders Orders - HARMAN ZUNIGA Albuterol/Ipra Inhalation Soln (Duoneb I (12/13/18 13:27) Cbc With Automated Diff (12/13/18 13:35) Comprehensive Metabolic Panel (12/13/18 13:35) Blood Culture (12/13/18 13:35) Sputum Culture (12/13/18 13:35) Urinalysis (12/13/18 13:35) Urine Culture (12/13/18 13:35) Protime With Inr (12/13/18 13:35) Partial Thromboplastin Time (12/13/18 13:35) Chest 1 View, Ap/Pa Only (12/13/18 13:35) Acetaminophen Tablet (Tylenol Tablet) (12/13/18 13:45) Ed Iv/Invasive Line Start (12/13/18 13:35) Ed Iv/Invasive Line Start (12/13/18 13:35) Ekg Tracing (12/13/18 13:35) Troponin I (12/13/18 13:35) Vital Signs Adult Sepsis Patie Q15M (12/13/18 13:35) O2 (12/13/18 13:35) Remove Rings In Anticipation O (12/13/18 13:35) Lactic Acid Analyzer (12/13/18 13:35) Influenza A And B Antigens (12/13/18 13:35) Ns Iv 1000 Ml (Sodium Chloride 0.9%) (12/13/18 13:35) Ceftriaxone For Iv Use (Rocephin For I (12/13/18 13:45) Azithromycin Injection (Zithromax Inject (12/13/18 13:45) BNP (12/13/18 13:35) Ed Iv/Invasive Line Start (12/13/18 13:35) Ns Iv 500 Ml (Sodium Chloride 0.9%) (12/13/18 13:35) Ns Iv 1000 Ml (Sodium Chloride 0.9%) (12/13/18 13:35) Albuterol/Ipra Inhalation Soln (Duoneb I (12/13/18 13:45) Svn Small Volume Nebulizer (12/13/18 13:35) Creatine Kinase (12/13/18 13:35) Arterial Blood Gas (12/13/18 13:42) Manual Differential (12/13/18 13:24) Arterial Blood Draw (12/13/18 13:37) Fentanyl Injection (Sublimaze Injection (12/13/18 15:30) Catheter(Urinary) Insert & Ass 03,15 (12/13/18 16:41) Albuterol/Ipra Inhalation Soln (Duoneb I (12/13/18 17:00) Vapotherm - Admin Rt Rfs (12/13/18 16:51) Medications Given in ED Current Medications Medications Dose Ordered Sig/Keenan Route Start Time Stop Time Status Last Admin Dose Admin Acetaminophen 1,000 mg ONCE PRN PO 12/13/18 13:45 12/13/18 14:02 DC 12/13/18 14:02 1,000 MG Albuterol/ Ipratropium 3 ml ONCE ONCE INH 12/13/18 13:45 12/13/18 13:46 DC 12/13/18 13:44 3 ML Albuterol/ Ipratropium 3 ml ONCE ONCE INH 12/13/18 17:00 12/13/18 17:01 DC 12/13/18 17:14 3 ML Azithromycin 500 mg/Sodium Chloride 250 ml @ 250 mls/hr ONCE ONCE IV 12/13/18 13:45 12/13/18 14:44 DC 12/13/18 14:06 250 MLS/HR Ceftriaxone Sodium 1000 mg/ Sterile Water 10 ml @ 200 mls/hr ONCE ONCE IV 12/13/18 13:45 12/13/18 13:47 DC 12/13/18 14:01 200 MLS/HR Fentanyl Citrate 50 mcg ONCE ONCE IVP 12/13/18 15:30 12/13/18 15:31 DC 12/13/18 15:37 50 MCG Vital Signs/I&O 12/13/18 12/13/18 12/13/18 12/13/18 13:35 13:42 13:44 14:02 Temp 100.6 100.6 Pulse 114 Resp 22 B/P (MAP) 169/109 (129) Pulse Ox 95 99 96 O2 Delivery Room Air OxyMask Nasal Cannula O2 Flow Rate 6.00 6.00 6.00 FiO2 100 12/13/18 17:14 Pulse Ox 96 O2 Delivery Vapotherm O2 Flow Rate 30.00 FiO2 60 Capillary Refill : Progress Note #1: Time: 14:17 Progress Note Patient is overweight for CT scan. He's having no pain in his head. We'll do an observation period. He is not on blood thinners. Labs demonstrate kidney and liver dysfunction in addition to lactate putting him in severe sepsis. Septic workup. DuoNeb. ABG shows mild CO2 retention and no hypoxia on 6 L per oxygen mask. Elevated lactate secondary to acute kidney injury versus infection? Echocardiogram August [address] Nicole: Normal cavity size and mild increased left wall thickness with concentric hypertrophy. EF 70-75%. Progress Note #2: Time: 17:04 Progress Note Oxygen saturations are gone back down to 92-93% on 7 L by oxygen mask. We'll switch him over to Vapotherm 20 L/m, FiO2 50% titrated to keep his sats 94-98% and give him another DuoNeb. Patient was unable to produce a urine so we put a Gonzalez catheter in place. Looking for a source of infection to go with severe sepsis with 2 organ systems failure, liver and kidney as well as respiratory. Respiratory distress likely due to COPD although it's possible pulmonary infiltrate could be missed with the pulmonary edema. ECG Initial ECG Impression Date: Dec 13, 2018 Initial ECG Impression Time: 13:52 Initial ECG Rate: 113 Initial ECG Rhythm: S.Tach Initial ECG Intervals: Normal Initial ECG Impression: Normal, Nonspecific Changes Initial ECG Comparisson: Unchanged Comment Sinus tachycardia without clinically significant ST elevation or depression. Diagnostic Imaging Diagonstic Imaging: Xray Plain Films/CT/US/NM/MRI: chest (1v) Comments NAME: KEISHA BECERRIL [facility] REC#: [id number] PT STATUS: REG ER : 1955 PHYSICIAN: HARMAN ZUNIGA MD ADMIT DATE: 12/13/18/ER Signed Date of Exam:12/13/18 CHEST 1 VIEW, AP/PA ONLY INDICATION: Fall from bed COMPARISON: 12/01/2018 FINDINGS: The heart is enlarged and increased from prior. There is increased vascular congestion as well as increased pulmonary edema. There are likely at least small pleural effusions and likely some pleural edema or a small amount of interfissural pleural fluid on the right. IMPRESSION: Failure pattern having developed as described. Dictated by: Dictated on workstation # [id number] Dict: 12/13/18 1450 Trans: 12/13/18 1501 [facility] [id number] Interpreted by: DARYL ROYAL Electronically signed by: DARYL ROYAL 12/13/18 1501 Reviewed: Reviewed by Me Departure Communication (Admissions) Time/Spoke to Admitting Phy: 17:33 Discussed the case lab imaging findings with Dr. Arredondo and she agrees with ICU care. She would like Dr. Perez and Dr. Becker's consultation. She agrees with cefepime. We discussed the possibility he could have a pneumonia as well as UTI and COPD exacerbation and have not given steroids reason. Time/Spoke to Consulting Phy: 17:42 Dr. Perez agrees to consult on the case. Dr. Becker agrees to consult on the case. He would like metoprolol 50 mg titrated given now and twice a day as long as the blood pressure supports it as well as he would like aspirin 325 now and daily. Impression Primary Impression: Acute respiratory distress Additional Impressions: Hypoxemia COPD with acute exacerbation Severe sepsis Acute kidney injury Elevated INR Disposition: ADMITTED INPATIENT Condition: Critical Admissions Decision to Admit Reason: Admit from ER (General) Decision to Admit/Date: Dec 13, 2018 Time/Decision to Admit Time: 16:28 Departure-Patient Inst. Referrals: ÁNGEL SPIVEY MD (PCP) Primary Care Physician KATHYA LOWE (Family) Primary Care Physician HARMAN ZUNIGA Dec 13, 2018 13:42
[2018-12-13] MEDS ORDERED: AZITHROMYCIN INJECTION 500 MG in NS (IVPB) 250 ML IV ONE (13:45)
[2018-12-13] MEDS ORDERED: ACETAMINOPHEN 500 MG TAB (TYLENOL) PO PRN (13:45)
[2018-12-13] MEDS ORDERED: cefTRIAXone FOR IV USE 1,000 MG in WATER (STERILE) FOR INJECTION 10 ML IV ONE (13:45)
[2018-12-13] MEDS ORDERED: RT-ALBUTEROL/IPRATROPIUM 3 ML (DUONEB) VIAL INH ONE ×2 (13:45→17:00)
[2018-12-13 13:50] LABS: BASOPHILS % (AUTO) 0 % (0-10); EOSINOPHILS % (AUTO) 0 % (0-10); HEMATOCRIT 36 % (40-54); LYMPHOCYTES # (AUTO) 0.6 X 10^3 (1.0-4.0); LYMPHOCYTES % (AUTO) 6 % (12-44); MEAN CORPUSCULAR HEMOGLOBIN 28 PG (25-34); MEAN CORPUSCULAR HGB CONC 31 G/DL (32-36); MEAN CORPUSCULAR VOLUME 91 FL (80-99); MEAN PLATELET VOLUME 10.4 FL (7.4-10.4); MONOCYTES # (AUTO) 0.7 X 10^3 (0.0-1.0); MONOCYTES % (AUTO) 7 % (0-12); NEUTROPHILS # (AUTO) 7.7 X 10^3 (1.8-7.8); NEUTROPHILS % (AUTO) 86 % (42-75); PLATELET COUNT 171 10^3/uL (130-400); RED CELL DISTRIBUTION WIDTH 16.5 % (10.0-14.5)
[2018-12-13 13:51] LABS: ABG BASE EXCESS 4.9 MMOL/L (-2.5-2.5); ABG OXYGEN SATURATION 95 % (94-100); ABG PCO2 51 MMHG (35-45); ABG PH 7.39 (7.37-7.43); ABG PO2 79 MMHG (79-93)
[2018-12-13 13:54] LABS: ALLENS TEST YES-POS; INSPIRED O2 6%; PATIENT TEMP 100.6; VENTILATOR NO
[2018-12-13 14:01] LABS: INR 1.7 (0.8-1.4); PROTHROMBIN TIME PATIENT 20.3 SEC (12.2-14.7)
[2018-12-13 14:11] LABS: BILIRUBIN,TOTAL 1.6 MG/DL (0.1-1.0); CALCIUM 9.9 MG/DL (8.5-10.1); CREATININE SERUM 1.52 MG/DL (0.60-1.30); POTASSIUM 4.6 MMOL/L (3.6-5.0); TOTAL PROTEIN 7.4 GM/DL (6.4-8.2)
[2018-12-13 14:16] LABS: BAND NEUTROPHILS 3 %; LYMPHOCYTES % (MANUAL) 8 %; NEUTROPHILS % (MANUAL) 85 %
[2018-12-13 14:17] LABS: ANISOCYTOSIS SLIGHT; BASOPHILS % (MANUAL) 0 %; EOSINOPHILS % (MANUAL) 0 %; MONOCYTES % (MANUAL) 4 %
--- NOTE | 2018-12-13 14:52 | Diagnostic Imaging Report ---
INDICATION: Fall from bed COMPARISON: 12/01/2018 FINDINGS: The heart is enlarged and increased from prior. There is increased vascular congestion as well as increased pulmonary edema. There are likely at least small pleural effusions and likely some pleural edema or a small amount of interfissural pleural fluid on the right. IMPRESSION: Failure pattern having developed as described. Dictated by: Dictated on workstation # [id number]
[2018-12-13] MEDS ORDERED: fentaNYL INJECTION 100 MCG/2 ML AMP IVP ONE (15:30)
[2018-12-13 17:03] LABS: BILIRUBIN,URINE NEGATIVE (NEGATIVE); CLARITY,URINE SLIGHTLY CLOUDY; COLOR,URINE YELLOW; GLUCOSE, URINE (UA) NEGATIVE (NEGATIVE); KETONES,URINE 1+ (NEGATIVE); LEUKOCYTE ESTERASE ,URINE 1+ (NEGATIVE); NITRITE,URINE NEGATIVE (NEGATIVE); PH,URINE 5 (5-9); PROTEIN,URINE 2+ (NEGATIVE); UROBILINOGEN,URINE 1 MG/DL (NORMAL)
--- NOTE | 2018-12-13 17:04 | NUR ---
RT in room to start Vapotherm at this time.
[2018-12-13 17:11] LABS: BACTERIA,URINE MODERATE /HPF; HYALINE CASTS, URINE 0-2 /LPF
[2018-12-13] MEDS ORDERED: meTOprolol TARTRATE 50 MG (LOPRESSOR) TAB PO ONE (17:45)
[2018-12-13] MEDS ORDERED: oxyCODONE/APAP 5/325MG (PERCOCET 5) TABLET PO PRN (18:45)
[2018-12-13] MEDS ORDERED: NS IV ONE (19:15)
[2018-12-13] MEDS ORDERED: ONDANSETRON 4 MG/2 ML (SDV) Z0FRAN IV PRN (19:30)
[2018-12-13] MEDS ORDERED: CATHETER FLUSH 10 ML SYR IV PRN (19:45)
[2018-12-13] MEDS: RT-ALBUTEROL/IPRATROPIUM 3 ML (DUONEB) VIAL INH SCH ×2 (19:56→21:48)
[2018-12-13] MEDS: NOREPINEPHRINE 4 MG in NS (IVPB) 250 ML IV SCH ×2 (20:56→23:17)
[2018-12-13] MEDS ORDERED: DOXEPIN 25 MG (SINEquan) CAP PO SCH (21:00)
[2018-12-13] MEDS ORDERED: PREGABALIN 100 MG (LYRICA) CAPSULE PO SCH (21:00)
[2018-12-13] MEDS ORDERED: meTOprolol TARTRATE 50 MG (LOPRESSOR) TAB PO SCH (21:00)
[2018-12-13] MEDS: inSUlin ASPART (NovoLOG) 1 UNIT/0.01 ML (CHARGE PER UNIT) SC SCH (21:18)
[2018-12-13] MEDS: NS IV 1000 ML 1,000 ML IV SCH (21:34)
[2018-12-13] MEDS: CEFEPIME 1,000 MG/SWFI 10 ML IV PUSH IV SCH ×2 (21:35)
[2018-12-13] MEDS: meTOprolol TARTRATE 50 MG (LOPRESSOR) TAB PO SCH (21:36)
[2018-12-13] MEDS: ACETAMINOPHEN 500 MG TAB (TYLENOL) PO PRN (21:36)
[2018-12-13] MEDS: GENTAMICIN 0.3% OPHTH SOLN 5 ML OU SCH (21:37)
[2018-12-13] MEDS: MICONAZOLE 2% POWDER (DESENEX AF) 90 GM TOP SCH (21:37)
[2018-12-14] VITALS (33 sets, daily range): BP systolic 120–192; BP diastolic 90–132
[2018-12-14] MEDS: RT-ALBUTEROL/IPRATROPIUM 3 ML (DUONEB) VIAL INH SCH ×12 (00:11→22:15)
[2018-12-14] MEDS: GENTAMICIN 0.3% OPHTH SOLN 5 ML OU SCH ×6 (01:08→20:57)
[2018-12-14] MEDS: NS IV 1000 ML 1,000 ML IV SCH (01:40)
[2018-12-14] MEDS: NOREPINEPHRINE 4 MG in NS (IVPB) 250 ML IV SCH ×5 (02:13→13:58)
[2018-12-14] MEDS: CEFEPIME 1,000 MG/SWFI 10 ML IV PUSH IV SCH ×8 (02:19→20:58)
[2018-12-14] MEDS ORDERED: 1/2 NS IV SOLUTION 1,000 ML IV SCH (03:11)
[2018-12-14 03:27] LABS: BASOPHILS % (AUTO) 0 % (0-10); EOSINOPHILS % (AUTO) 0 % (0-10); HEMATOCRIT 35 % (40-54); HEMOGLOBIN 10.4 G/DL (13.3-17.7); LYMPHOCYTES # (AUTO) 0.8 X 10^3 (1.0-4.0); LYMPHOCYTES % (AUTO) 9 % (12-44); MEAN CORPUSCULAR HEMOGLOBIN 27 PG (25-34); MEAN CORPUSCULAR HGB CONC 30 G/DL (32-36); MEAN CORPUSCULAR VOLUME 91 FL (80-99); MEAN PLATELET VOLUME 10.2 FL (7.4-10.4); MONOCYTES # (AUTO) 0.7 X 10^3 (0.0-1.0); MONOCYTES % (AUTO) 8 % (0-12); NEUTROPHILS # (AUTO) 7.2 X 10^3 (1.8-7.8); NEUTROPHILS % (AUTO) 83 % (42-75); PLATELET COUNT 159 10^3/uL (130-400); RED CELL DISTRIBUTION WIDTH 16.7 % (10.0-14.5); WHITE BLOOD COUNT 8.7 10^3/uL (4.3-11.0)
[2018-12-14 03:47] LABS: ALANINE AMINOTRANSFERASE 10 U/L (0-55); ALBUMIN 3.6 GM/DL (3.2-4.5); ALKALINE PHOSPHATASE 88 U/L (40-136); BILIRUBIN,TOTAL 1.3 MG/DL (0.1-1.0); BUN/CREATININE RATIO 18; CALCIUM 8.8 MG/DL (8.5-10.1); CARBON DIOXIDE 25 MMOL/L (21-32); CHLORIDE 103 MMOL/L (98-107); CREATININE SERUM 1.14 MG/DL (0.60-1.30); GFR ESTIMATED > 60; GLUCOSE 170 MG/DL (70-105); MAGNESIUM 1.5 MG/DL (1.6-2.4); POTASSIUM 4.4 MMOL/L (3.6-5.0); SODIUM 140 MMOL/L (135-145); TOTAL PROTEIN 6.8 GM/DL (6.4-8.2)
[2018-12-14] MEDS: KCL 20 MEQ TAB (K-DUR) PO SCH (03:51)
[2018-12-14] MEDS: MAGNESIUM 1 GM/100 ML IVPB 100 ML IV SCH ×3 (03:51→06:47)
[2018-12-14] MEDS: inSUlin ASPART (NovoLOG) 1 UNIT/0.01 ML (CHARGE PER UNIT) SC SCH ×4 (03:51→21:01)
[2018-12-14] MEDS: POTASSIUM CL 10MEQ/50ML IVPB 50 ML IV SCH (03:51)
[2018-12-14 04:49] LABS: ABG BASE EXCESS 3.4 MMOL/L (-2.5-2.5); ABG OXYGEN SATURATION 98 % (94-100); ABG PCO2 61 MMHG (35-45); ABG PO2 106 MMHG (79-93); ABG TCO2 31.3 MMOL/L (21.0-31.0)
[2018-12-14 04:57] LABS: ALLENS TEST YES-POS; INSPIRED O2 60%; VENTILATOR NO
[2018-12-14] MEDS ORDERED: PHARMACY TO DOSE IV SCH (05:30)
[2018-12-14] MEDS ORDERED: BUMETANIDE 1 MG/4 ML (BUMEX) VIAL IV ONE (05:30)
[2018-12-14] MEDS ORDERED: LACTATED RINGERS 1,000 ML IV SCH (05:30)
[2018-12-14] MEDS ORDERED: LACTATED RINGERS 1,000 ML IV ONE (05:34)
--- NOTE | 2018-12-14 05:42 | Pulmonary Consultation ---
History of Present Illness History of Present Illness Date of Consultation 12/14/18 05:37 Time Seen by Provider: 06:23 Date of Admission History of Present Illness 63yo with chronic respiratory failure, morbid obesity, VENKATA, chonic wounds, poor medical compliance and multiple hospitalizations presented to ED secondary worsening weakness, SOB and falling off side of bed onto floor. Pt was found to have a fever of 100.6 severe sepsis and acute respiratory failure. He was admitted to ICU with severe sepsis protocol. He is currently requiring BiPAP and is lethargic. Unable to obtain any info from patient. I am consulted for pulmonary/ICU management. Allergies and Home Medications Allergies Coded Allergies: Sulfa (Sulfonamide Antibiotics) (Unverified Allergy, Unknown, 03/21/14) latex (Unverified Allergy, Unknown, 03/21/14) raspberry (Unverified Allergy, Unknown, 03/21/14) zinc oxide (Unverified Allergy, Unknown, 03/21/14) Uncoded Allergies: ARTIFICIAL SWEETNERS (Allergy, Unknown, 03/21/14) Home Medications Acetaminophen 500 Mg Tablet, 1,000 MG PO TID, (Reported) TAKES 2 (500MG) TABLETS Aspirin 325 Mg Tablet.dr, 325 MG PO DAILY, (Reported) Atorvastatin Calcium 40 Mg Tablet, 40 MG PO HS, (Reported) B Complex with Vitamin C 1 Each Tablet, 1 TAB PO DAILY, (Reported) Budesonide/Formoterol Fumarate 10.2 Gm Hfa.aer.ad, 2 PUFF INH BID, (Reported) Doxepin HCl 100 Mg Capsule, 200 MG PO HS, (Reported) TAKES 2 (100MG) CAPSULES Duloxetine HCl 60 Mg Capsule.dr, 60 MG PO DAILY, (Reported) Finasteride 5 Mg Tablet, 5 MG PO DAILY, (Reported) Furosemide 20 Mg Tablet, 40 MG PO DAILY, (Reported) TAKES 2 (20MG) TABLETS Furosemide 20 Mg Tablet, 20 MG PO 1800, (Reported) Hydrochlorothiazide 25 Mg Tablet, 25 MG PO DAILY Prescribed by: JOHN BUCIO on 09/17/18 1459 Insulin Glargine,Hum.rec.anlog 100 Unit/1 Ml Insuln.pen, 80 UNITS SC HS, (Reported) Lidocaine 1 Each Adh..patch, 2-3 PATCH TOP DAILY PRN for PAIN-MODERATE, (Reported) Lisinopril 20 Mg Tablet, 20 MG PO DAILY Prescribed by: JOHN BUCIO on 09/17/18 1459 Metoprolol Tartrate 100 Mg Tablet, 100 MG PO BID, (Reported) Montelukast Sodium 10 Mg Tablet, 10 MG PO HS Prescribed by: JOHN BUCIO on 09/17/18 1459 Polyethylene Glycol 3350 17 Gm Powd.pack, 17 GM PO MoWeFr, (Reported) Pregabalin 200 Mg Capsule, 200 MG PO TID, (Reported) Tizanidine HCl 4 Mg Tablet, 4-6 MG PO TID, (Reported) TAKES 1 TO 1 & 1/2 (4MG) TABLETS Past Cgxerhj-Hfyrtd-Cmtjev Hx Patient Social History Alcohol Use: Denies Use Recreational Drug Use: No Smoking Status: Former Smoker Type Used: Cigars, Cigarettes 2nd Hand Smoke Exposure: No Recent Foreign Travel: No Contact w/Someone Who Travel: No Recent Infectious Disease Expo: No Recent Hopitalizations: Yes (RELEASED ON THURSDAY) Physical Abuse: No Sexual Abuse: No Mistreated: No Fear: No Immunizations Up To Date Tetanus Booster (TDap): Unknown Date of Pneumonia Vaccine: Apr 20, 2016 Date of Influenza Vaccine: Jan 18, 2018 Seasonal Allergies Seasonal Allergies: No Past Medical History Surgeries: No Respiratory: Yes Sleep Apnea, COPD Currently Using CPAP: No Currently Using BIPAP: Yes Cardiac: Yes High Cholesterol, Hypertension Neurological: Yes Neuropathy Genitourinary: No Gastrointestinal: No Musculoskeletal: Yes (CHRONIC GENERALIZED PAIN ) Arthritis, Fibromyalgia Endocrine: Yes (MORBID OBESITY) Diabetes, Insulin dep HEENT: No Cancer: No Psychosocial: No Integumentary: Yes (CHRONIC LEG WOUNDS) Blood Disorders: No Family Medical History Heart Disease, Cancer, CAD Over 55 Years Old, Diabetes, Hypertension, Stroke, Vascular Disease Review of Systems Time Seen by Provider: 06:28 Sepsis Event Evaluation Height, Weight, BMI Height: 5'10.00" Weight: 456lbs. 0.0oz. 206.914457un; 65.4 BMI Method:Stated Exam Exam Vital Signs Date Time Temp Pulse Resp B/P (MAP) Pulse Ox O2 Delivery O2 Flow Rate FiO2 12/14/18 04:42 90 16 94 60.00 12/14/18 04:00 92 167/100 (122) NIV Bilevel 60.00 12/14/18 04:00 95 NIV Bilevel 60 12/14/18 03:00 95 149/93 (111) NIV Bilevel 60.00 12/14/18 02:17 96 20 94 60.00 12/14/18 02:00 93 147/97 (114) 96 NIV Bilevel 60.00 12/14/18 01:00 99 12/14/18 01:00 98 141/109 (120) 94 NIV Bilevel 60.00 12/14/18 00:11 99 15 94 60.00 12/14/18 00:00 101 18 150/90 (110) 94 NIV Bilevel 60.00 12/14/18 00:00 95 NIV Bilevel 60 12/13/18 23:00 105 18 157/80 (105) 94 NIV Bilevel 60.00 12/13/18 22:00 105 20 98 60.00 12/13/18 22:00 109 15 194/136 (155) 96 NIV Bilevel 60.00 12/13/18 21:59 NIV Bilevel 12/13/18 21:48 92 Vapotherm 30.00 60 12/13/18 21:00 106 20 191/124 (146) 95 Vapotherm 60.00 30.00 12/13/18 20:00 96 Vapotherm 30.00 60 12/13/18 20:00 104 21 182/107 (132) 95 Vapotherm 60.00 30.00 12/13/18 19:56 95 Vapotherm 30.00 60 12/13/18 19:45 94 Vapotherm 30.00 60 12/13/18 19:45 106 94 60 12/13/18 19:38 111 12/13/18 19:30 94 Vapotherm 30.00 60 12/13/18 19:29 98.8 111 19 208/126 (153) 95 Vapotherm 60.00 30.00 12/13/18 19:00 109 15 221/120 (153) 93 Vapotherm 60.00 30.00 12/13/18 18:46 100.6 90 13 180/105 (130) 98 Vapotherm 30.00 12/13/18 18:30 90 13 164/86 (112) 100 Nasal Cannula 2.00 12/13/18 18:15 92 13 163/86 (111) 98 Nasal Cannula 2.00 12/13/18 18:00 90 13 148/79 (102) 98 Nasal Cannula 2.00 8/26/19 17:45 81 18 162/87 (112) 92 Nasal Cannula 2.00 12/13/18 17:30 76 11 158/83 (108) 100 Nasal Cannula 2.00 12/13/18 17:15 83 12 158/79 (105) 99 Nasal Cannula 2.00 12/13/18 17:14 96 Vapotherm 30.00 60 12/13/18 14:02 100.6 12/13/18 13:44 96 Nasal Cannula 6.00 12/13/18 13:42 99 OxyMask 6.00 100 12/13/18 13:35 100.6 114 22 169/109 (129) 95 Room Air 6.00 I & O 12/14/18 07:00 Intake Total 2510 ml Output Total 550 ml Balance 1960 ml Height & Weight Height: 5'10.00" Weight: 456lbs. 0.0oz. 206.941652ld; 65.4 BMI Method:Stated General Appearance: Mild Distress, Obese HEENT: PERRL/EOMI, TMs Normal, Normal ENT Inspection, Pharynx Normal, Moist Mucous Membranes Neck: Full Range of Motion, Normal Inspection Respiratory: No Accessory Muscle Use, Decreased Breath Sounds, Respiratory Distress (mild-mod), Wheezing Cardiovascular: Regular Rate, Rhythm, Normal Peripheral Pulses, Tachycardia Capillary Refill: Less Than 3 Seconds Peripheral Pulses: 2+ Radial Pulses (R), 2+ Radial Pulses (L) Extremity: Normal Capillary Refill, No Calf Tenderness, Other (venous stasis ulcer wraps on bilateral lower extremities with pink non-warm non-red, woody edema) Neurologic/Psychiatric: Alert, Oriented x3, No Motor/Sensory Deficits Results Lab Laboratory Tests 12/13/18 13:24 12/14/18 03:10 Assessment/Plan Assessment/Plan Acute on chronic respiratory failure -Currently on biPAP --Increase BiPAP to 18/8 with RR 16. titrate Fi02 for Sp02 90-92% -Pt uses vent to mask at home -repeat ABG at 1300 -Start Solumedrol 40 Q 6 -SVNs - Duoneb currently Q2. Add pulmicort BID severe sepsis -Decrease IVF secondary to respiratory status -martinez cultures pending Pulmonary edema -Give bumex IV x1 -Decrease IVF to 30cc/hr Multiple hospitalizations -Consult social work and hospice for education RLD -Last PFT was 07/2018 - Shows severe RLD with asthma and decreased DLCO AsthmaAE - SVNS, Advair, Singulair, Claritin -Pt uses symbicort and proair as out patient -Pt has a nebulizer at home with Duoneb Diastolic CHF EF 60% -give bumex 1mg x 1 OHS/VENKATA -vent to mask at home Tobacco use - quit in 1991 Chronic leg wounds - known to Wound care clinic -Wound care is consulted TAMIKA HILARIO DO Dec 14, 2018 05:42
[2018-12-14] MEDS ORDERED: BUMETANIDE 1 MG/4 ML (BUMEX) VIAL ONE (05:45)
--- NOTE | 2018-12-14 06:37 | NUR ---
VANCOMYCIN DOSING: BASED ON ADJ BW 126 KG, SCr 1.14, EST CrCl 118 LOADING DOSE: 2,500 MG @ 07:00 MAIN DOSE: 2,500 MG Q 12 HRS VANCOMYCIN TROUGH DUE 12/15/18 17:00 IF TROUGH > 20 HOLD 12/15/18 18:00 DOSE
[2018-12-14] MEDS ORDERED: VANCOMYCIN 2,500 MG/NS 500 ML IVPB IV SCH ×2 (07:00)
--- NOTE | 2018-12-14 08:08 | Consultation-Cardiology ---
HPI-Cardiology Cardiology Consultation: Date of Consultation 12/14/18 Time Seen by a Provider: 09:50 Date of Admission 12-13-18 Attending Physician Addie Martinez DO Admitting Physician Bharat Aguilera MD Consulting Physician Cory Becker MD HPI: Chief Complaint: Dyspnea Acute resp failure Mr. Perea is a 63 year old male admitted to ICU 9 from the ED. He reports he slipped out of bed at home and laid on the floor for approx 10 hours d/t being unable to get up. He states EMS was summoned to help him back to bed, at that time he declined transport. He states his in home attendant came to do his wound care. He was noted to have and elevated temp at that time. His PCP was called and eval at the ED was advised. He reports chronic dyspnea which he feels has been progressive. He denies any CP. He does report a feeling of dis comfort, "like food is getting stuck" at the epigastric region. He reports chronic bilat leg swelling which he feels is unchanged. He denies any syncope or near syncope. His LE wounds are being followed by wound care. He reports itchy, red eyes for which he is being treated for pink eye. Review of Systems-Cardiology Review of Systems Constitutional: No chills; fever, malaise, weight gain Eyes: As described under HPI Ears/Nose/Throat: No epistaxis, No recent hearing loss Respiratory: As described under HPI Cardiovascular: As described under HPI Gastrointestinal: No constipation, No diarrhea, No nausea, No vomiting Genitourinary: No dysuria, No hematuria, No urgency, No urine frequency changes, No urine coloration changes Musculoskeletal: joint pain Skin: ulcerations (LE bilat) Psychiatric/Neurological: depression; No seizure, No focal weakness, No syncope Hematologic: No bleeding abnormalities DLW-Hxhgyg-Zuwpcy Hx Patient Social History Alcohol Use: Denies Use Recreational Drug Use: No Smoking Status: Former Smoker Type Used: Cigars, Cigarettes 2nd Hand Smoke Exposure: No Recent Foreign Travel: No Recent Infectious Disease Expo: No Hospitalization with Isolation: Denies Immunizations Up To Date Tetanus Booster (TDap): Unknown Date of Pneumonia Vaccine: Apr 20, 2016 Date of Influenza Vaccine: Jan 18, 2018 Past Medical History PMH As described under Assessment. Allergies and Home Medications Allergies Coded Allergies: Sulfa (Sulfonamide Antibiotics) (Unverified Allergy, Unknown, 03/21/14) latex (Unverified Allergy, Unknown, 03/21/14) raspberry (Unverified Allergy, Unknown, 03/21/14) zinc oxide (Unverified Allergy, Unknown, 03/21/14) Uncoded Allergies: ARTIFICIAL SWEETNERS (Allergy, Unknown, 03/21/14) Home Medications Acetaminophen 500 Mg Tablet, 1,000 MG PO TID, (Reported) TAKES 2 (500MG) TABLETS Albuterol Sulfate 1 Puff Puff, 2 PUFF INH Q4H PRN for SHORTNESS OF BREATH, (Reported) Aspirin 325 Mg Tablet.dr, 325 MG PO DAILY, (Reported) Atorvastatin Calcium 40 Mg Tablet, 40 MG PO HS, (Reported) B Complex with Vitamin C 1 Each Tablet, 1 TAB PO DAILY, (Reported) Budesonide/Formoterol Fumarate 10.2 Gm Hfa.aer.ad, 2 PUFF INH BID PRN for SHORTNESS OF BREATH, (Reported) Cranberry Fruit Concentrate 450 Mg Capsule, 450 MG PO BID, (Reported) Doxepin HCl 100 Mg Capsule, 200 MG PO HS, (Reported) TAKES 2 (100MG) CAPSULES Duloxetine HCl 60 Mg Capsule.dr, 60 MG PO DAILY, (Reported) Finasteride 5 Mg Tablet, 5 MG PO DAILY, (Reported) Furosemide 20 Mg Tablet, 40 MG PO 0800,1700, (Reported) TAKES 2 (20MG) TABLETS Gentamicin Sulfate 5 Ml Drops, 1 DROP OU Q4H, (Reported) FILLED 8 Insulin Glargine,Hum.rec.anlog 100 Unit/1 Ml Insuln.pen, 30-80 UNITS SC HS PRN for BS ABOVE 150, (Reported) L.acidoph & Paracasei,B.lactis 1 Each Capsule, 1 CAP PO DAILY, (Reported) Lidocaine 1 Each Adh..patch, 2-3 PATCH TOP DAILY PRN for PAIN-MODERATE, (Reported) Lisinopril 20 Mg Tablet, 20 MG PO DAILY, (Reported) Metoprolol Tartrate 100 Mg Tablet, 50 MG PO BID, (Reported) TAKES 1/2 (100MG) TABLET Montelukast Sodium 10 Mg Tablet, 10 MG PO HS, (Reported) Polyethylene Glycol 3350 17 Gm Powd.pack, 17 GM PO MoWeFr, (Reported) Pregabalin 200 Mg Capsule, 200 MG PO TID, (Reported) Sildenafil Citrate 100 Mg Tablet, 100 MG PO DAILY PRN for ED, (Reported) ALTERNATES WITH CIALIS Tadalafil 20 Mg Tablet, 20 MG PO DAILY PRN for ED, (Reported) ALTERNATES WITH VIAGRA Tizanidine HCl 4 Mg Tablet, 4 MG PO 0800,1700, (Reported) Tizanidine HCl 4 Mg Tablet, 6 MG PO HS, (Reported) TAKES 1 & 1/2 (4MG) TABLETS Patient Home Medication List Home Medication List Reviewed: Yes Physical Exam-Cardiology Physical Exam Vital Signs/I&O 12/16/18 12/16/18 12/16/18 12/16/18 04:30 07:27 08:00 08:00 Temp 98.8 98.6 Pulse 95 73 90 Resp 22 18 18 B/P (MAP) 110/76 (87) 122/74 (90) Pulse Ox 95 90 78 78 O2 Delivery NIV Bilevel NIV Bilevel NIV Bilevel O2 Flow Rate 30.00 30.00 30.00 4.00 FiO2 100 12/16/18 12/16/18 12/16/18 11:03 12:00 14:22 Temp 98.4 Pulse 103 Resp 20 B/P (MAP) 98/64 (75) Pulse Ox 97 95 90 O2 Delivery High Flow N/C NIV Bilevel High Flow N/C O2 Flow Rate 4.00 30.00 4.00 12/16/18 00:00 Intake Total 110 ml Output Total 1150 ml Balance -1040 ml Capillary Refill : Less Than 3 Seconds Constitutional: AAO x 3, well-developed, well-nourished HEENT: other (redness, irritation bilat eyes) Neck: No carotid bruit; carotid pulses are 2 + bilaterally Respiratory: No accessory muscle use, No respiratory distress; chest expansion is symmetric, chest is bilaterally symmetric, other (fair air entry; diminished) Cardiovascular: regular rate-rhythm; No JVD; S1 and S2 Gastrointestinal: No tender; soft, round, audible bowel sounds Rectal: deferred Extremities: other (bilat pitting and non-pitting edema LE) Neurologic/Psychiatric: grossly intact Skin: normal color, other (dressings to LE bilat D&I; dressings not removed) Data Review Labs Laboratory Tests 12/15/18 17:03: Vancomycin Level Trough 24.6H 12/15/18 17:05: Glucometer 286H 12/15/18 20:31: Glucometer 241H 12/16/18 05:23: Glucometer 196H 12/16/18 06:00: White Blood Count 8.0, Red Blood Count 4.00L, Hemoglobin 10.9L, Hematocrit 35L, Mean Corpuscular Volume 89, Mean Corpuscular Hemoglobin 27, Mean Corpuscular Hemoglobin Concent 31L, Red Cell Distribution Width 16.3H, Platelet Count 188, Mean Platelet Volume 10.4, Neutrophils (%) (Auto) 90H, Lymphocytes (%) (Auto) 5L , Monocytes (%) (Auto) 6, Eosinophils (%) (Auto) 0, Basophils (%) (Auto) 0, Neutrophils # (Auto) 7.2, Lymphocytes # (Auto) 0.4L, Monocytes # (Auto) 0.4, Eosinophils # (Auto) 0.0, Basophils # (Auto) 0.0, Sodium Level 140, Potassium Level 4.6, Chloride Level 105, Carbon Dioxide Level 22, Anion Gap 13, Blood Urea Nitrogen 23H, Creatinine 1.08, Estimat Glomerular Filtration Rate > 60, BUN/Creatinine Ratio 21, Glucose Level 203H, Calcium Level 8.8, Corrected Calcium 9.4, Magnesium Level 1.6, Total Bilirubin 1.3H, Aspartate Amino Transf (AST/SGOT) 25, Alanine Aminotransferase (ALT/SGPT) 13, Alkaline Phosphatase 79, Total Protein 6.5, Albumin 3.3, Vancomycin Level Trough 29.0*H 12/16/18 11:20: Glucometer 271H 12/16/18 16:04: Glucometer 245H Microbiology 12/13/18 Blood Culture - Preliminary, Resulted No growth 12/14/18 MRSA Screen - Final, Complete 12/13/18 Urine Culture - Final, Complete NO GROWTH Radiology NAME: [facility] REC#: [id number] PT STATUS: REG ER : 1955 PHYSICIAN: HARMAN ZUNIGA MD ADMIT DATE: 12/13/18/ER Signed Date of Exam: 12/13/18 CHEST 1 VIEW, AP/PA ONLY INDICATION: Fall from bed COMPARISON: 12/01/2018 FINDINGS: The heart is enlarged and increased from prior. There is increased vascular congestion as well as increased pulmonary edema. There are likely at least small pleural effusions and likely some pleural edema or a small amount of interfissural pleural fluid on the right. IMPRESSION: Failure pattern having developed as described. Dictated by: Dictated on workstation # [id number] Dict: 12/13/18 1450 Trans: 12/13/18 1501 Interpreted by: DARYL ROYAL Electronically signed by: DARYL ROYAL 12/13/18 1501 ECG Impression ECG Initial ECG Rhythm: S.Tach A/P-Cardiology Assessment/Admission Diagnosis UTI with sepsis - management per medical/ICU services Acute on chronic respiratory failure multi-factorial Hospitalization in August 2018 with acute on chronic respiratory failure Echocardiogram of 08-29-[address] Nicole showed LVEF 70-75%. Concentric hypertrophy. PASP 40 mmHg. Chronic CHUNG and sleep apnea, related to obesity-hypoventilation syndrome No evidence of myocardial ischemia or infarction, LVEF 72% on MPI of July 2017 Conjunctivitis bilat Hypertension Hypertriglyceridemia Obesity with BMI approx 65 H/o isolated PVCs Normal cors and normal cardiac hemodynamics reported on cardiac cath of July [address] Nisa Clark DJD DM II H/o depression, currently controlled Chronic variable leg swelling and stasis dermatitis and venous leg ulcers, likely related to venous insuff CKD stage 3 - 4, likely due to diabetic nephropathy - follows with Dr. Mina Lassiter of nephrology services Not suitable of SOFIA-inhib or ARB due a h/o hyperkalemia on those agents Minimal bilat carotid arterial disease per u/s of July 2017 Discussion and Recomendations UTI with sepsis - management per medical/ICU services Acute on chronic respiratory failure which is multi-factorial as noted above Continue anti-hypertensive regimen Replace lytes Give diuretics as indicated Further recs will be based on his hospital course We would like to thank medical services for this consult Clinical Quality Measures DVT/VTE Risk/Contraindication: Risk Factor Score Per Nursin RFS Level Per Nursing on Admit: 4+=Very High SAM MOBLEY Dec 14, 2018 08:08
[2018-12-14] MEDS: meTOprolol TARTRATE 50 MG (LOPRESSOR) TAB PO SCH ×2 (08:11→20:59)
[2018-12-14] MEDS: DULoxetine 30 MG (CYMBALTA) CAP PO SCH (08:11)
[2018-12-14] MEDS: ASPIRIN E.C. 325 MG (ECOTRIN) TABLET PO SCH (08:11)
[2018-12-14] MEDS: FINASTERIDE (PROSCAR) 5 MG TAB PO SCH (08:12)
[2018-12-14] MEDS: MICONAZOLE 2% POWDER (DESENEX AF) 90 GM TOP SCH ×4 (08:12→21:01)
[2018-12-14] MEDS: RT-BUDESONIDE NEBS 0.5 MG/2ML (PULMICORT) AMP INH SCH ×2 (09:02→20:08)
[2018-12-14] MEDS ORDERED: LISI-552 PO (09:26)
[2018-12-14] MEDS ORDERED: MONT10TA21 PO (09:26)
[2018-12-14] MEDS ORDERED: TIZA4TAB4 PO (09:38)
[2018-12-14] MEDS ORDERED: GENT5DRO30 OU (09:38)
[2018-12-14] MEDS ORDERED: L.AC1CAP6 PO (09:38)
[2018-12-14] MEDS ORDERED: TADA20TA PO (09:38)
[2018-12-14] MEDS ORDERED: SILD100T PO (09:39)
[2018-12-14] MEDS ORDERED: RT-ALBUINH INH (09:39)
[2018-12-14] MEDS ORDERED: CRAN450C PO (09:39)
--- NOTE | 2018-12-14 09:53 | NUR ---
SPOKE WITH THE PATIENT ABOUT HIS MEDICATIONS. HE HAD A LIST WITH HIM AND I COMPARED IT WITH THE EXT MED HX. HE FILLED METOPROLOL TARTRATE 100MG BID HOWEVER HE STATES IT HAS BEEN DECREASED TO 1/2 TAB BID. HE FILLED LASIX 2 AM AND 1 EVENING- HE STATES THIS HAS BEEN INCREASED TO 2 TABS BID. HE FILLED TIZANIDINE 4MG #135 FOR 30 DAYS. HE STATES HE TAKES 1 BID AND 1.5 TABS AT HS. HE HAS NOT FILLED SYMBICORT SINCE 09-08-18 - HE STATES HE HASN'T BEEN USING IT MUCH SINCE HE IS ON THE OXYGEN. I LEFT IT ON MED REC PRN. HE HAS NOT FILLED BASAGLAR SINCE 09-07-18 -HE STATES HIS BLOOD SUGAR HAS NOT BEEN RUNNING HIGH, HE USES BETWEEN 30 AND 80 UNITS IF BS IS ABOVE 150. HE STATES HE HAS CIALIS AND VIAGRA ON HAND IF NEEDED. HE ALTERNATES BETWEEN THE TWO BUT HAS NOT BEEN USING THEM RECENTLY. OTC MEDS: CRANBERRY BID ASPIRIN 325MG DAILY TYLENOL 1000MG TID B COMPLEX DAILY MIRALAX Thu DAILY HE STATES HE IS NO LONGER TAKING FISH OIL OR HCTZ.
--- NOTE | 2018-12-14 10:10 | Diagnostic Imaging Report ---
Examination: Chest one view. History: COPD. Findings: Comparison is 12/13/2018. Lung volumes are small and the film is underpenetrated. Within this limitation there does appear to be increased patchy areas of airspace opacity concerning for development of moderate pulmonary edema. Heart is enlarged. No pneumothorax is seen. There is likely a small right pleural effusion. Impression: 1. New patchy airspace opacities concerning for development of moderate pulmonary edema. Dictated by: Dictated on workstation # [id number]
--- NOTE | 2018-12-14 11:09 | History & Physical-Hospitalist ---
[facility] 12/14/18 1109: History of Present Illness HPI/Chief Complaint C/C: short of breath HPI: Mr. Perea is a 63 year old male that presented to the ER with shortness or breath and increased temperature. He reported that he had fell off his couch at home and was on the floor for sometime. EMS was contacted to help him off the floor and declined transport to the hospital. He states that his home care nurse who performs his wound care was concerned when she was there and he was running a temperature and his PCP was called and evaluation at the ER was advised. Date Seen 12/14/18 Time Seen by a Provider: 08:45 Attending Physician Jerod Braun David F MD Referring Physician Date of Admission Dec 13, 2018 at 17:15 Home Medications & Allergies Home Medications Reviewed patient Home Medication Reconciliation performed by pharmacy medication reconciliations geophysical data technician and/or nursing. Patients Allergies have been reviewed. Allergies Allergies Coded Allergies Sulfa (Sulfonamide Antibiotics) (Unverified Allergy, Unknown, 03/21/14) latex (Unverified Allergy, Unknown, 03/21/14) raspberry (Unverified Allergy, Unknown, 03/21/14) zinc oxide (Unverified Allergy, Unknown, 03/21/14) Uncoded Allergies ARTIFICIAL SWEETNERS ( Allergy, Unknown, 03/21/14) Patient has a list of allergies he brought with him bedside and it stated the patient was allergic to the following: Ibuprofen, sulfa, latex, Zinc, Chromates, Horseradish, Sweet and Low, Equal, Raspberry, Rhubarb, Bees, Wool, Androgel, Oxycodone tab, Nabumetone tab Past Xhqjkyc-Zmarih-Ndurij Hx Patient Social History Employed/Student: unemployed (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 Musculoskeletal: Arthritis, Fibromyalgia Endocrine: Diabetes, Insulin dep History of Blood Disorders: No Family History Heart Disease, Cancer, CAD Over 55 Years Old, Diabetes, Hypertension, Stroke, Vascular Disease Radhames stated: Mother when she was 60 from heart complications and that his father is still living and has no known disease. Review of Systems Constitutional: No chills, No dizziness, No fever EENTM: eye pain Respiratory: short of breath Cardiovascular: no symptoms reported Gastrointestinal: other (Pt states he has pain associated with food intake after a certain point ) Genitourinary: no symptoms reported Musculoskeletal: back pain, joint pain Skin: other (Patient has left heal wound and right toe wound ) Psychiatric/Neurological: No Symptoms Reported Physical Exam Physical Exam Vital Signs Vital Signs - First Documented 12/13/18 12/13/18 13:35 13:42 Temp 100.6 Pulse 114 Resp 22 B/P (MAP) 169/109 (129) Pulse Ox 95 O2 Delivery Room Air O2 Flow Rate 6.00 FiO2 100 Capillary Refill : Less Than 3 Seconds Height, Weight, BMI Height: 5'10.00" Weight: 456lbs. 0.0oz. 206.697848fm; 65.4 BMI Method:Stated Eyes: Bilateral Eye Other (Left eye was erythematous more so then the right. Radhames states its feels like gravel in his eye ) HEENT: Moist Mucous Membranes Neck: Full Range of Motion, Non Tender Respiratory: Chest Non Tender, No Accessory Muscle Use, No Respiratory Distress, Other (Lungs sounded fine, patient currently on NC ) Cardiovascular: Regular Rate, Rhythm, No JVD, Other Gastrointestinal: Normal Bowel Sounds, No Pulsatile Mass, Non Tender, Other Extremity: Other (LE wrapped bilaterally, could not access legs. 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 Assessment/Plan Assessment and Plan Assessment: 1. Acute Respiratory Distress 2. COPD Exacerbation 3. Severe sepsis 4. Acute Kidney Injury 5. Elevated INR 6. Diabetic Neuropathy 7. Eye infection 8. Heart Failure 9. UTI 10. Pneumonia Plan: 1. Consult Pulmonary Care 2. Consult Cardio 3. Continue Abx regimen 4. Sputum culture if possible 5. Chest X-ray 6. Continue to monitor labs and vitals 7. Diabetes management 8. Wound care consult 9. DVT prophylaxis 10. Consult Social work for home evaluation 11. PT and OT when able 12. DC catheter when possible 13. Continue patient of current medication and fluids 14. Continue patient on Eye drops 15. Consult General surgery for patients potential esophagus issues Plan: Clinical Quality Measures DVT/VTE Risk/Contraindication: Risk Factor Score Per Nursin RFS Level Per Nursing on Admit: 4+=Very High JEROD BRAUN DO 12/14/18 2009: History of Present Illness HPI/Chief Complaint Chief complaint: Fall with SOB HPI: This is a 63yoWM with a history of morbid obesity, obesity hypoventilation syndrome also, who is known to me form prior hospital stays about every other months after he suffers a fall at home, cannot get up and becomes short of breath and having difficulty so he was admitted from the ER, placed on broad spectrum antibiotics for UTI and possible early pneumonia, cardiology and pulmonology were consulted, BiPAP was just discontinued and he is doing much better after he was on that. Levophed will be weaned off for hypotension. Cefepime and Vancomycin will be maintained for empiric antibiotic coverage. Chest X-ray revealed enlarged heart. Appreciate all consultants help. Source: patient Exam Limitations: no limitations Past Hxakzui-Odjwbj-Reccwe Hx Past Med/Social Hx: Reviewed Nursing Past Med/Soc Hx, Reviewed and Corrections made Patient Social History Marrital Status: single Review of Systems Constitutional: see HPI Respiratory: cough, dyspnea on exertion Physical Exam Physical Exam General Appearance: No Apparent Distress, WD/WN, Chronically ill, Obese Respiratory: Chest Non Tender, No Accessory Muscle Use, No Respiratory Distress, Decreased Breath Sounds, Wheezing Cardiovascular: Regular Rate, Rhythm, No Edema, No Gallop, No JVD, No Murmur, Normal Peripheral Pulses Assessment/Plan Admission Diagnosis Assessment: Acute on chronic resp failure OHA Chronic venous stasis ulcers Plan: ICU Appreciate Dr Ana Perea Admission Status: Inpatient Order (span 2 midnights) Reason for Inpatient Admission: Severe resp failure Diagnosis/Problems Diagnosis/Problems (1) Acute and chronic respiratory failure with hypoxia Status: Resolved Resolution Date/Time: 09/17/18 @ 16:37 (2) VENKATA on CPAP Status: Chronic (3) COPD with acute exacerbation Status: Resolved Resolution Date/Time: 09/17/18 @ 16:37 (4) Polypharmacy Status: Chronic (5) Type II diabetes mellitus with complication Status: Chronic (6) Neuropathy Status: Chronic (7) Fibromyalgia Status: Chronic (8) Morbid obesity with BMI of 50.0-59.9, adult Status: Chronic (9) Multiple falls Status: Chronic (10) Acute kidney injury Status: Acute Supervisory-Addendum Brief Verification & Attestation Participated in pt care: history, MDM, physical Personally performed: exam, history, MDM, supervision of care Care discussed with: Medical Student Procedures: n/a Results interpretation: Verified all documentation Verification and Attestation of Medical Student E/M Service A medical student performed and documented this service in my presence. I reviewed and verified all information documented by the medical student and made modifications to such information, when appropriate. I personally performed the physical exam and medical decision making. Jerod Braun, Dec 14, 2018,20:09 [facility] Dec 14, 2018 11:09 JEROD BRAUN DO Dec 14, 2018 20:09
--- NOTE | 2018-12-14 11:10 | NUR ---
Pastoral care visit.
[2018-12-14 12:59] LABS: ABG BASE EXCESS 4.6 MMOL/L (-2.5-2.5); ABG OXYGEN SATURATION 93 % (94-100); ABG PCO2 46 MMHG (35-45); ABG PH 7.41 (7.37-7.43); ABG PO2 60 MMHG (79-93); ABG TCO2 30.8 MMOL/L (21.0-31.0)
[2018-12-14 13:00] LABS: ALLENS TEST positive; INSPIRED O2 50%; VENTILATOR YES
[2018-12-14 13:01] LABS: PATIENT TEMP 96
--- NOTE | 2018-12-14 14:57 | NUR ---
PALLIATIVE CARE RN received Hospice consult for education. Went to patient room and found him to be in bed..quite uncomfortable by observation confirmed by report from the patient. Patient reported having wanted to get into the chair since 10 this morning...noting that his back was "killing him in this bed". Talked for a long time to patient and heard his report of the reason for his admission. He also talked to me about all of his various medical problems and then mentioned that he would be better if he lost weight and discussed the bariatric surgery. We briefly touched on hospice and discussed this benefit. He reports that he would like to keep his [facility] wound nurse that he has through [facility]. He is interested in hearing more about hospice but not interested in signing on at this team.
--- NOTE | 2018-12-14 15:01 | Physical Therapy Evaluation ---
PT Evaluation-General Medical Diagnosis Admission Date Dec 13, 2018 at 17:15 Medical Diagnosis: respiratory distress/sepsis Onset Date: Dec 13, 2018 Therapy Diagnosis Therapy Diagnosis: debility/weakness Height/Weight Height (Feet): 5 Height (Inches): 10.00 Weight (Pounds): 456 Weight (Ounces): 0.0 Precautions Precautions/Isolations: Fall Prevention, Standard Precautions Referral Physician: Ana Reason for Referral: Evaluation/Treatment Medical History Pertinent Medical History: Arthritis, COPD, DM, HTN, Neuropathy Additional Medical History morbid obesity Current History EMS secondary to patient slid off of bed and was on floor x 10 hours before his father found him. Firefighters and police assisted patient to bed and patient declined EMS transfer. Home Health nursing in to home and insisted on EMS to ER. Patient complied. Reviewed History: Yes Social History Home: Single Level Current Living Status: Other Family Entry Into Home: Ramp Prior/Core FIM Prior Level of Function Therapy Code Descriptions/Definitions Functional [place] Measure: 0=Not Assessed/NA 4=Minimal Assistance 1=Total Assistance 5=Supervision or Setup 2=Maximal Assistance 6=Modified [place] 3=Moderate Assistance 7=Complete [place] Therapy Quality Codes: 6 Independent with activity with or without an assistive device 5 Patient requires set up or clean up by helper. Patient completes activity by themselves 4 Supervision or touching assist (CGA). [place] provide cues , steadying assist 3 The helper provides less than half the effort to complete the activity 2 The helper provides more than half the effort to complete the activity 1 Dependent. The helper does all the effort to complete an activity 7 Patient refused to complete or attempt activity 9 The patient did not perform the activity before the current illness or injury 88 Not attempted due to Medical conditions or safety concerns Functional Abilities and Goals: Independent: Patient completed the activities by him/herself, with or without an assistive device, with no assistance from a helper. Needed Some Help: Patient needed partial assistance from another person to complete activities. Dependent: A helper completed the activities for the patient. Unknown: Not Applicable: Bed Mobility: 6 Transfers (B,C,W/C) (FIM): 6 Gait: 1 Indoor Mobility (Ambulation): Needed Some Help Stairs: Not Applicalbe Prior Devices Use: Motorized scooter, Other-see list below Prior Device Use: 2 canes per patient report to ambulate short distances PT Evaluation-Current Subjective Patient agrees to OOB. Currently on Vapotherm for O2 needs. Pain Numeric Pain Scale: 5-Moderate Pain Location: Medial, Lower Location Body Site: Back Pain Description: Ache, Chronic Objective Patient Orientation: Normal For Age Problem Solving: Fair Attachments: Oxygen (Vapotherm), Gonzalez Catheter, IV ROM/Strength ROM Lower Extremities bilateral LE limited due to chronic cellulitis, morbid obesity and edema Strength Lower Extremities 3+/5 grossly bilaterally Integumentary/Posture Integumentary bilateral LE cellulitis Bowel Incontinence: Yes Bladder Incontinence: Yes Posture WFL Neuromuscular (Tone, Coordination, Reflexes) grossly intact with all Sensory Vision: Functional Hearing: Functional Sensation Right Lower Extremit: Impaired Sensation Left Lower Extremity: Impaired Transfers Therapy Code Descriptions/Definitions Functional [place] Measure: 0=Not Assessed/NA 4=Minimal Assistance 1=Total Assistance 5=Supervision or Setup 2=Maximal Assistance 6=Modified [place] 3=Moderate Assistance 7=Complete [place] Transfers (B, C, W/C) (FIM): 1 Scootin Supine to/from Sit: 1 Sit to/from Stand: 2 bed t/f WC(FIM only if WC use): 2 Patient is unable to assist with bed mobility due to morbid obesity and position in bed/able to assist with sit to stand and SPT bed to recliner Balance Sitting Static: Fair Sitting Dynamic: Fair Standing Static: Fair Standing Dynamic: Fair Assessment/Needs 63 y.o. male, will be seen by skilled PT to address functional mobility to ensure safe return to home or care facility at maximum LOF. Patient is limited with all mobility due to morbid obesity/inactivity PLOF. Rehab Potential: Poor Post Rehab Potential-Barriers: compliance PT Custodial Goals Custodial Goals PT Net Technical Architect Goals Time Frame: Dec 25, 2018 Transfers (B,C,W/C) (FIM): 4 Gait (FIM): 1 Gait distance (FIM): 1=up to 49 ft Distance: 10' Gait Level of Assist: 4 Gait Assistive Device: FWW PT Plan Problem List Problem List: Activity Tolerance, Functional Strength, Safety, Balance, Gait, Transfer, Bed Mobility, ROM Treatment/Plan Treatment Plan: Continue Plan of Care Treatment Plan: Bed Mobility, Education, Functional Activity Ghulam, Functional Strength, Gait, Safety, Therapeutic Exercise, Transfers Treatment Duration: Dec 25, 2018 Frequency: 6 times per week Estimated Hrs Per Day: .25 hour per day Patient and/or Family Agrees t: Yes Safety Risks/Education Patient Education: Transfer Techniques, Safety Issues Teaching Recipient: Patient Teaching Methods: Demonstration, Discussion Response to Teaching: Verbalize Understanding, Reinforcement Needed Discharge Recommendations Therapy D/C Recommendations: Chcf Placement, Half-Way (TCU/NH) Time/GCodes Time In: 1415 Time Out: 1440 Total Billed Treatment Time: 25 Total Billed [facility] SAI ZHANG PT Dec 14, 2018 15:01
--- NOTE | 2018-12-14 16:06 | NUR ---
PALLIATIVE CARE WAS IN PATIENT ROOM WHEN RT CAME PAST THE ROOM TWICE WITHIN THE 1400 HOUR
--- NOTE | 2018-12-14 16:09 | Consultation-Cardiology ---
HPI-Cardiology Cardiology Consultation: Date of Consultation 12/14/18 Time Seen by a Provider: 14:00 Date of Admission Attending Physician Addie Martinez DO Admitting Physician Bharat Aguilera MD Consulting Physician FLORIN GREENBERG MD, MA, FACP, FACC, [facility] [facility], CCDS Physician requesting consult: Dr Martinez HPI: Chief Complaint: Reason for consultation: Shortness of breath, non-syncopal fall at home HPI Mr. Perea is a 63 year old male admitted to ICU 9 from the ED. He reports he slipped out of bed at home and laid on the floor for approx 10 hours d/t being unable to get up. He states EMS was summoned to help him back to bed, at that time he declined transport. 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 He was noted to have and elevated temp at that time. His PCP was called and eval at the ED was advised. He reports chronic dyspnea which he feels has been progressive. He denies any CP. He does report a feeling of discomfort, "like food is getting stuck" at the epigastric region. He reports chronic bilat leg swelling which he feels is unchanged. He denies any syncope or near syncope. His LE wounds are being followed by wound care. He reports itchy, red eyes for which he is being treated for pink eye. Review of Systems-Cardiology Review of Systems Constitutional: No chills; fever, malaise, weight gain Eyes: As described under HPI Ears/Nose/Throat: No epistaxis, No recent hearing loss Respiratory: As described under HPI Cardiovascular: As described under HPI Gastrointestinal: No constipation, No diarrhea, No nausea, No vomiting Genitourinary: No dysuria, No hematuria, No urgency, No urine frequency changes, No urine coloration changes Musculoskeletal: joint pain Skin: ulcerations (LE bilat) Psychiatric/Neurological: depression; No seizure, No focal weakness, No syncope Hematologic: No bleeding abnormalities [id number] Hx Patient Social History Employed/Student: unemployed (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 Family Medical History Family Medical History: He does not report fam h/o early CAD or SCD Allergies and Home Medications Allergies Coded Allergies: Sulfa (Sulfonamide Antibiotics) (Unverified Allergy, Unknown, 03/21/14) latex (Unverified Allergy, Unknown, 03/21/14) raspberry (Unverified Allergy, Unknown, 03/21/14) zinc oxide (Unverified Allergy, Unknown, 03/21/14) Uncoded Allergies: ARTIFICIAL SWEETNERS (Allergy, Unknown, 03/21/14) Home Medications Acetaminophen 500 Mg Tablet, 1,000 MG PO TID, (Reported) TAKES 2 (500MG) TABLETS Albuterol Sulfate 1 Puff Puff, 2 PUFF INH Q4H PRN for SHORTNESS OF BREATH, (Reported) Aspirin 325 Mg Tablet.dr, 325 MG PO DAILY, (Reported) Atorvastatin Calcium 40 Mg Tablet, 40 MG PO HS, (Reported) B Complex with Vitamin C 1 Each Tablet, 1 TAB PO DAILY, (Reported) Budesonide/Formoterol Fumarate 10.2 Gm Hfa.aer.ad, 2 PUFF INH BID PRN for SHORTNESS OF BREATH, (Reported) Cranberry Fruit Concentrate 450 Mg Capsule, 450 MG PO BID, (Reported) Doxepin HCl 100 Mg Capsule, 200 MG PO HS, (Reported) TAKES 2 (100MG) CAPSULES Duloxetine HCl 60 Mg Capsule.dr, 60 MG PO DAILY, (Reported) Finasteride 5 Mg Tablet, 5 MG PO DAILY, (Reported) Furosemide 20 Mg Tablet, 40 MG PO 0800,1700, (Reported) TAKES 2 (20MG) TABLETS Gentamicin Sulfate 5 Ml Drops, 1 DROP OU Q4H, (Reported) FILLED 8- Insulin Glargine,Hum.rec.anlog 100 Unit/1 Ml Insuln.pen, 30-80 UNITS SC HS PRN for BS ABOVE 150, (Reported) L.acidoph & Paracasei,B.lactis 1 Each Capsule, 1 CAP PO DAILY, (Reported) Lidocaine 1 Each Adh..patch, 2-3 PATCH TOP DAILY PRN for PAIN-MODERATE, (Reported) Lisinopril 20 Mg Tablet, 20 MG PO DAILY, (Reported) Metoprolol Tartrate 100 Mg Tablet, 50 MG PO BID, (Reported) TAKES 1/2 (100MG) TABLET Montelukast Sodium 10 Mg Tablet, 10 MG PO HS, (Reported) Polyethylene Glycol 3350 17 Gm Powd.pack, 17 GM PO MoWeFr, (Reported) Pregabalin 200 Mg Capsule, 200 MG PO TID, (Reported) Sildenafil Citrate 100 Mg Tablet, 100 MG PO DAILY PRN for ED, (Reported) ALTERNATES WITH CIALIS Tadalafil 20 Mg Tablet, 20 MG PO DAILY PRN for ED, (Reported) ALTERNATES WITH VIAGRA Tizanidine HCl 4 Mg Tablet, 4 MG PO 0800,1700, (Reported) Tizanidine HCl 4 Mg Tablet, 6 MG PO HS, (Reported) TAKES 1 & 1/2 (4MG) TABLETS Patient Home Medication List Home Medication List Reviewed: Yes Physical Exam-Cardiology Physical Exam Vital Signs/I&O 12/14/18 12/14/18 12/14/18 12/14/18 04:42 05:00 06:00 06:18 Pulse 90 90 88 86 Resp 16 14 13 19 B/P (MAP) 150/91 (110) 158/94 (115) Pulse Ox 94 95 93 93 O2 Delivery NIV Bilevel NIV Bilevel O2 Flow Rate 60.00 60.00 60.00 40.00 12/14/18 12/14/18 12/14/18 12/14/18 06:20 07:00 07:00 07:15 Pulse 93 90 Resp 20 Pulse Ox 90 O2 Delivery NIV Bilevel NIV Bilevel NIV Bilevel O2 Flow Rate 45.00 45.00 30.00 12/14/18 12/14/18 12/14/18 12/14/18 08:00 08:00 09:00 09:02 Pulse 87 84 Resp 15 15 Pulse Ox 90 95 95 O2 Delivery NIV Bilevel Vapotherm NIV Bilevel Vapotherm O2 Flow Rate 30.00 20.00 30.00 30.00 FiO2 50 60 12/14/18 12/14/18 12/14/18 12/14/18 09:13 09:33 10:00 10:23 Pulse 83 Resp 9 B/P (MAP) 151/107 (122) Pulse Ox 92 92 91 O2 Delivery Vapotherm Vapotherm NIV Bilevel Vapotherm O2 Flow Rate 20.00 50.00 30.00 20.00 20.00 FiO2 50 50 12/14/18 12/14/18 12/14/18 11:00 12:00 12:00 Pulse 82 Resp 12 39 B/P (MAP) 162/96 (118) 120/99 (106) Pulse Ox 89 89 O2 Delivery NIV Bilevel NIV Bilevel Vapotherm O2 Flow Rate 30.00 30.00 20.00 FiO2 50 12/14/18 00:00 Intake Total 2910 ml Output Total 350 ml Balance 2560 ml Capillary Refill : Less Than 3 Seconds Constitutional: AAO x 3, well-developed, well-nourished HEENT: other (redness, irritation bilat eyes) Neck: No carotid bruit; carotid pulses are 2 + bilaterally Respiratory: No accessory muscle use, No respiratory distress; chest expansion is symmetric, chest is bilaterally symmetric, other (fair air entry; diminished) Cardiovascular: regular rate-rhythm; No JVD; S1 and S2 Gastrointestinal: No tender; soft, round, audible bowel sounds Rectal: deferred Extremities: other (bilat pitting and non-pitting edema LE) Neurologic/Psychiatric: grossly intact Skin: normal color, other (dressings to LE bilat D&I; dressings not removed) Data Review Labs Laboratory Tests 12/13/18 16:49: Urine Color YELLOW, Urine Clarity SLIGHTLY CLOUDY, Urine pH 5, Urine Specific [place] 1.020, Urine Protein 2+H, Urine Glucose (UA) NEGATIVE, Urine Ketones 1+H , Urine Nitrite NEGATIVE, Urine Bilirubin NEGATIVE, Urine Urobilinogen 1, Urine Leukocyte Esterase 1+H, Urine RBC (Auto) 1+H, Urine RBC NONE, Urine WBC 5-10H, Urine Crystals NONE, Urine Bacteria MODERATEH, Urine Casts PRESENT, Urine Hyaline Casts 0-2H, Urine Mucus SMALLH, Urine Culture Indicated CULTURE PENDING 12/13/18 19:38: Troponin I < 0.028 12/13/18 21:17: Glucometer 126H 12/14/18 03:10: Troponin I < 0.028, White Blood Count 8.7, Red Blood Count 3.81L, Hemoglobin 10.4L, Hematocrit 35L, Mean Corpuscular Volume 91, Mean Corpuscular Hemoglobin 27, Mean Corpuscular Hemoglobin Concent 30L, Red Cell Distribution Width 16.7H, Platelet Count 159, Mean Platelet Volume 10.2, Neutrophils (%) (Auto) 83H, Lymphocytes (%) (Auto) 9L, Monocytes (%) (Auto) 8, Eosinophils (%) (Auto) 0, Basophils (%) (Auto) 0, Neutrophils # (Auto) 7.2, Lymphocytes # (Auto) 0.8L, Monocytes # (Auto) 0.7, Eosinophils # (Auto) 0.0, Basophils # (Auto) 0.0, Sodium Level 140, Potassium Level 4.4, Chloride Level 103, Carbon Dioxide Level 25, Anion Gap 12, Blood Urea Nitrogen 21H, Creatinine 1.14, Estimat Glomerular Filtration Rate > 60, BUN/Creatinine Ratio 18, Glucose Level 170H, Calcium Level 8.8, Corrected Calcium 9.1, Magnesium Level 1.5L, Total Bilirubin 1.3H, Aspartate Amino Transf (AST/SGOT) 25, Alanine Aminotransferase (ALT/SGPT) 10, Alkaline Phosphatase 88, Total Protein 6.8, Albumin 3.6 12/14/18 04:44: Blood Gas Puncture Site RIGHT RADIAL, Blood Gas Patient Temperature 98.0, Arterial Blood pH 7.30*L, Arterial Blood Partial Pressure CO2 61H, Arterial Blo od Partial Pressure O2 106H, Arterial Blood HCO3 29H, Arterial Blood Total CO2 31.3H, Arterial Blood Oxygen Saturation 98, Arterial Blood Base Excess 3.4H, Vitaly Test YES-POS, Blood Gas Ventilator Setting NO, Blood Gas Inspired Oxygen 60% 12/14/18 11:26: Glucometer 168H 12/14/18 12:50: Blood Gas Puncture Site rt radial, Blood Gas Patient Temperature 96, Arterial Blood pH 7.41, Arterial Blood Partial Pressure CO2 46H, Arterial Blood Partial Pressure O2 60L, Arterial Blood HCO3 29H, Arterial Blood Total CO2 30.8, Arterial Blood Oxygen Saturation 93L, Arterial Blood Base Excess 4.6H, Vitaly Test positive, Blood Gas Ventilator Setting YES, Blood Gas Inspired Oxygen 50% Microbiology 12/13/18 Influenza Types A,B Antigen (EDUARD) - Final, Complete 12/13/18 Urine Culture - Final, Complete NO GROWTH A/P-Cardiology Assessment/Admission Diagnosis UTI with sepsis - management per medical/ICU services Acute on chronic respiratory failure multi-factorial Echocardiogram of 08-29-[address] Nicole showed LVEF 70-75%. Concentric hypertrophy. PASP 40 mmHg. Chronic CHUNG and sleep apnea, related to obesity-hypoventilation syndrome No evidence of myocardial ischemia or infarction, LVEF 72% on MPI of July 2017 Hypertension Hypertriglyceridemia Obesity with BMI approx 65 H/o isolated PVCs Normal cors and normal cardiac hemodynamics reported on cardiac cath of July [address] Nisa ALVAREZ DM II H/o depression, currently controlled Chronic variable leg swelling and stasis dermatitis and venous leg ulcers, likely related to venous insuff CKD stage 3 - 4, likely due to diabetic nephropathy - follows with Dr. Mina Lassiter of nephrology services Not suitable of SOFIA-inhib or ARB due a h/o hyperkalemia on those agents Minimal bilat carotid arterial disease per u/s of July 2017 Discussion and Recomendations Continue anti-hypertensive regimen Replace lytes Give diuretics as indicated Further recs will be based on his hospital course We would like to thank the [facility] for this consult Clinical Quality Measures DVT/VTE Risk/Contraindication: Risk Factor Score Per Nursin RFS Level Per Nursing on Admit: 4+=Very High FLORIN GREENBERG MD FACP FAC CCDS Dec 14, 2018 16:09
[2018-12-14] MEDS ORDERED: TROUGH ORDER-PHARMACY XX NR (17:00)
[2018-12-14] MEDS ORDERED: lisINopril 20 MG (PRINIVIL) TABLET PO NR (17:30)
[2018-12-14] MEDS: hydrALAZINE (APESOLINE) 20 MG/ML VIAL IV PRN (18:02)
--- NOTE | 2018-12-14 19:28 | Wound Care Assessment ---
Wound Care Assessment Date Seen by Provider: Dec 14, 2018 Time Seen by Provider: 19:00 Chief Complaint R great toe and L calf ulcers. HPI The patient is a 63 year old male followed in the out-patient Wound Clinic for the above ulcers. He is admitted for respiratory failure, is currently breathing OK, and will not be wrestled around to check his wounds. Previous dressing orders are continued. Past Medical History: Admits Diabetes Type II, Admits Heart Disease (Morbid obesity) Smoking Status: Former Smoker Recreational Drug Use: No Alcohol Use: Denies Use Review of Systems Pulmonary: Dyspnea Cardiovascular: No: Chest Pain Gastrointestinal: No: Abdominal Pain Exam Vital Signs Date Time Temp Pulse Resp B/P (MAP) Pulse Ox O2 Delivery O2 Flow Rate FiO2 12/14/18 18:35 NIV Bilevel 40.00 12/14/18 18:25 123 48 97 12/14/18 18:00 192/117 (142) 12/14/18 16:07 50 12/14/18 16:00 99.2 Capillary Refill : Less Than 3 Seconds General Appearance: mild distress HEENT: other (erythema about eyes.) Cardiovascular: regular rate, rhythm Respiratory: decreased breath sounds Gastrointestinal: non tender, soft Extremities: other (Dressings intact.) Results Laboratory Tests 12/13/18 19:38: Troponin I < 0.028 12/13/18 21:17: Glucometer 126H 12/14/18 03:10: Troponin I < 0.028, White Blood Count 8.7, Red Blood Count 3.81L, Hemoglobin 10.4L, Hematocrit 35L, Mean Corpuscular Volume 91, Mean Corpuscular Hemoglobin 27, Mean Corpuscular Hemoglobin Concent 30L, Red Cell Distribution Width 16.7H, Platelet Count 159, Mean Platelet Volume 10.2, Neutrophils (%) (Auto) 83H, Lymphocytes (%) (Auto) 9L, Monocytes (%) (Auto) 8, Eosinophils (%) (Auto) 0, Basophils (%) (Auto) 0, Neutrophils # (Auto) 7.2, Lymphocytes # (Auto) 0.8L, Monocytes # (Auto) 0.7, Eosinophils # (Auto) 0.0, Basophils # (Auto) 0.0, Sodium Level 140, Potassium Level 4.4, Chloride Level 103, Carbon Dioxide Level 25, Anion Gap 12, Blood Urea Nitrogen 21H, Creatinine 1.14, Estimat Glomerular Filtration Rate > 60, BUN/Creatinine Ratio 18, Glucose Level 170H, Calcium Level 8.8, Corrected Calcium 9.1, Magnesium Level 1.5L, Total Bilirubin 1.3H, Aspartate Amino Transf (AST/SGOT) 25, Alanine Aminotransferase (ALT/SGPT) 10, Alkaline Phosphatase 88, Total Protein 6.8, Albumin 3.6 12/14/18 04:44: Blood Gas Puncture Site RIGHT RADIAL, Blood Gas Patient Temperature 98.0, Arterial Blood pH 7.30*L, Arterial Blood Partial Pressure CO2 61H, Arterial Blood Partial Pressure O2 106H, Arterial Blood HCO3 29H, Arterial Blood Total CO2 31.3H, Arterial Blood Oxygen Saturation 98, Arterial Blood Base Excess 3.4H, Vitaly Test YES-POS, Blood Gas Ventilator Setting NO, Blood Gas Inspired Oxygen 60% 12/14/18 11:26: Glucometer 168H 12/14/18 12:50: Blood Gas Puncture Site rt radial, Blood Gas Patient Temperature 96, Arterial Blood pH 7.41, Arterial Blood Partial Pressure CO2 46H, Arterial Blood Partial Pressure O2 60L, Arterial Blood HCO3 29H, Arterial Blood Total CO2 30.8, Arterial Blood Oxygen Saturation 93L, Arterial Blood Base Excess 4.6H, Vitaly Test positive, Blood Gas Ventilator Setting YES, Blood Gas Inspired Oxygen 50% 12/14/18 16:12: Glucometer 158H Microbiology 12/13/18 Blood Culture - Preliminary, Resulted No growth 12/13/18 Influenza Types A,B Antigen (EDUARD) - Final, Complete 12/13/18 Urine Culture - Final, Complete NO GROWTH Microbiology 12/13/18 Blood Culture - Preliminary, Resulted No growth 12/13/18 Blood Culture - Preliminary, Resulted No growth 12/13/18 Influenza Types A,B Antigen (EDUARD) - Final, Complete 12/13/18 Urine Culture - Final, Complete NO GROWTH Assessment/Plan/Dx 1. Diabetic foot ulcer, R great toe, Shane Grade 2. 2. L calf venous insufficiency ulcer, full thickness. 3. Diabetes, with peripheral neuropathy. 4. Morbid obesity. Plan: Previous dressings ordered. Will follow and re-assess wounds when pulmonary status better. ALFONSO ESTRADA MD Dec 14, 2018 19:28
[2018-12-14] MEDS: ARTIFICAL TEARS 0.4 ML UNIT DOSE (REFRESH PLUS) OU PRN (20:58)
[2018-12-14] MEDS: VANCOMYCIN 2,500 MG/NS 500 ML IVPB IV SCH ×2 (20:58)
[2018-12-14] MEDS: ACETAMINOPHEN 500 MG TAB (TYLENOL) PO PRN (21:00)
[2018-12-15] VITALS (17 sets, daily range): BP systolic 133–199; BP diastolic 82–123
[2018-12-15] MEDS: RT-ALBUTEROL/IPRATROPIUM 3 ML (DUONEB) VIAL INH SCH ×7 (00:04→22:56)
[2018-12-15] MEDS: GENTAMICIN 0.3% OPHTH SOLN 5 ML OU SCH ×7 (00:14→22:06)
[2018-12-15] MEDS: CEFEPIME 1,000 MG/SWFI 10 ML IV PUSH IV SCH ×8 (02:15→20:47)
[2018-12-15 03:39] LABS: BUN/CREATININE RATIO 20; CARBON DIOXIDE 25 MMOL/L (21-32); CHLORIDE 103 MMOL/L (98-107); CREATININE SERUM 0.92 MG/DL (0.60-1.30); GFR ESTIMATED > 60; GLUCOSE 167 MG/DL (70-105); MAGNESIUM 1.9 MG/DL (1.6-2.4); POTASSIUM 3.8 MMOL/L (3.6-5.0); SODIUM 140 MMOL/L (135-145)
[2018-12-15 04:02] LABS: BASOPHILS % (AUTO) 0 % (0-10); EOSINOPHILS # (AUTO) 0.1 10^3/uL (0.0-0.3); EOSINOPHILS % (AUTO) 1 % (0-10); HEMATOCRIT 34 % (40-54); HEMOGLOBIN 10.5 G/DL (13.3-17.7); LYMPHOCYTES # (AUTO) 0.9 X 10^3 (1.0-4.0); LYMPHOCYTES % (AUTO) 10 % (12-44); MEAN CORPUSCULAR HEMOGLOBIN 27 PG (25-34); MEAN CORPUSCULAR HGB CONC 31 G/DL (32-36); MEAN CORPUSCULAR VOLUME 89 FL (80-99); MEAN PLATELET VOLUME 10.8 FL (7.4-10.4); MONOCYTES % (AUTO) 11 % (0-12); NEUTROPHILS % (AUTO) 78 % (42-75); PLATELET COUNT 167 10^3/uL (130-400); RED CELL DISTRIBUTION WIDTH 16.1 % (10.0-14.5)
[2018-12-15 05:20] LABS: ABG BASE EXCESS 4.7 MMOL/L (-2.5-2.5); ABG OXYGEN SATURATION 99 % (94-100); ABG PCO2 39 MMHG (35-45); ABG PH 7.48 (7.37-7.43); ABG PO2 99 MMHG (79-93); ABG TCO2 29.4 MMOL/L (21.0-31.0)
[2018-12-15 05:22] LABS: ALLENS TEST YES-POS; INSPIRED O2 30%; PATIENT TEMP 98.9; VENTILATOR NO
[2018-12-15] MEDS ORDERED: MAGNESIUM 1 GM/100 ML IVPB 100 ML IV SCH (06:00)
[2018-12-15] MEDS ORDERED: POTASSIUM CL 10MEQ/50ML IVPB 50 ML IV SCH (06:00)
[2018-12-15] MEDS ORDERED: KCL 20 MEQ TAB (K-DUR) PO SCH (06:00)
[2018-12-15] MEDS: POTASSIUM CL 10MEQ/50ML IVPB 50 ML IV SCH (06:06)
[2018-12-15] MEDS: MAGNESIUM 1 GM/100 ML IVPB 100 ML IV SCH (06:07)
[2018-12-15] MEDS: KCL 20 MEQ TAB (K-DUR) PO SCH ×2 (06:08→08:24)
[2018-12-15] MEDS: inSUlin ASPART (NovoLOG) 1 UNIT/0.01 ML (CHARGE PER UNIT) SC SCH ×4 (06:09→20:48)
[2018-12-15] MEDS: VANCOMYCIN 2,500 MG/NS 500 ML IVPB IV SCH ×4 (06:21→19:34)
[2018-12-15] MEDS: RT-BUDESONIDE NEBS 0.5 MG/2ML (PULMICORT) AMP INH SCH ×2 (06:48→19:55)
--- NOTE | 2018-12-15 06:59 | Pulmonary Progress Note ---
Subjective Time Seen by a Provider: 08:28 Subjective/Events-last exam appears lethargic and SOB Sepsis Event Evaluation Height, Weight, BMI Height: 5'10.00" Weight: 456lbs. 0.0oz. [id number]; 65.4 BMI Method:Stated Focused Exam Lactate Level 12/13/18 13:24: Lactic Acid Level 2.25*H 12/13/18 15:34: Lactic Acid Level 1.06 Time of Focused Exam: 17:02 Exam Exam Vital Signs Date Time Temp Pulse Resp B/P (MAP) Pulse Ox O2 Delivery O2 Flow Rate FiO2 12/15/18 06:50 91 Vapotherm 30.00 40 12/15/18 06:20 85 133/95 (108) 95 NIV Bilevel 30.00 12/15/18 04:45 90 139/82 (101) 93 NIV Bilevel 30.00 12/15/18 04:11 88 23 93 30.00 12/15/18 04:00 93 157/93 (114) 92 NIV Bilevel 30.00 12/15/18 03:00 92 153/90 (111) 93 NIV Bilevel 30.00 12/15/18 02:03 96 23 92 30.00 12/15/18 02:00 93 156/87 (110) 93 NIV Bilevel 30.00 12/15/18 01:30 98.8 12/15/18 01:00 94 12/15/18 01:00 94 149/88 (108) 93 NIV Bilevel 30.00 12/15/18 00:12 94 NIV Bilevel 30 12/15/18 00:08 93 160/90 (113) 97 NIV Bilevel 30.00 12/15/18 00:08 100.5 12/15/18 00:04 96 33 97 30.00 12/15/18 00:00 99 149/96 (113) 97 NIV Bilevel 30.00 12/14/18 23:00 98 163/99 (120) 97 NIV Bilevel 30.00 12/14/18 22:49 100 162/100 (120) 97 NIV Bilevel 30.00 12/14/18 22:15 99 21 95 30.00 12/14/18 22:00 98 192/109 (136) 96 NIV Bilevel 30.00 12/14/18 21:00 99 173/108 (129) 96 NIV Bilevel 30.00 12/14/18 20:33 100 24 97 40.00 12/14/18 20:11 100 96 NIV Bilevel 30.00 12/14/18 20:09 100 24 97 40.00 12/14/18 20:00 97.7 12/14/18 20:00 94 NIV Bilevel 30 12/14/18 20:00 101 169/99 (122) 97 NIV Bilevel 40.00 12/14/18 19:45 102 182/113 (136) 87 NIV Bilevel 40.00 12/14/18 19:30 99 162/98 (119) 96 NIV Bilevel 40.00 12/14/18 19:15 97 166/98 (120) 95 NIV Bilevel 40.00 12/14/18 19:01 98 12/14/18 19:00 101 177/122 (140) 95 NIV Bilevel 40.00 12/14/18 18:35 NIV Bilevel 40.00 12/14/18 18:25 123 48 97 100.00 12/14/18 18:00 98 31 192/117 (142) 87 NIV Bilevel 30.00 12/14/18 17:00 95 28 187/131 (149) 89 NIV Bilevel 30.00 12/14/18 16:07 90 Vapotherm 20.00 50 12/14/18 16:00 Vapotherm 20.00 50 12/14/18 16:00 99.2 12/14/18 16:00 92 24 182/114 (136) 91 NIV Bilevel 30.00 12/14/18 15:00 90 23 176/108 (130) 91 NIV Bilevel 30.00 12/14/18 14:00 88 27 158/115 (129) 90 NIV Bilevel 30.00 12/14/18 13:00 85 12/14/18 13:00 85 26 161/99 (119) 92 NIV Bilevel 30.00 12/14/18 12:00 Vapotherm 20.00 50 12/14/18 12:00 82 39 120/99 (106) 89 NIV Bilevel 30.00 12/14/18 11:00 12 162/96 (118) 89 NIV Bilevel 30.00 12/14/18 10:23 91 Vapotherm 20.00 50 12/14/18 10:00 83 9 151/107 (122) 92 NIV Bilevel 30.00 12/14/18 09:33 Vapotherm 50.00 20.00 12/14/18 09:13 92 Vapotherm 20.00 50 12/14/18 09:02 95 Vapotherm 30.00 60 12/14/18 09:00 84 15 NIV Bilevel 30.00 12/14/18 08:00 95 Vapotherm 20.00 50 12/14/18 08:00 87 15 90 NIV Bilevel 30.00 12/14/18 07:15 NIV Bilevel 30.00 12/14/18 07:00 90 20 90 NIV Bilevel 45.00 12/14/18 07:00 93 I & O 12/15/18 07:00 Intake Total 2660 ml Output Total 1350 ml Balance 1310 ml Height & Weight Height: 5'10.00" Weight: 456lbs. 0.0oz. 206.450850yc; 65.4 BMI Method:Stated General Appearance: No Apparent Distress, WD/WN, Chronically ill, Obese HEENT: Moist Mucous Membranes Neck: Full Range of Motion, Non Tender Respiratory: Chest Non Tender, No Accessory Muscle Use, No Respiratory Distress, Decreased Breath Sounds, Wheezing Cardiovascular: Regular Rate, Rhythm, No Edema, No Gallop, No JVD, No Murmur, Normal Peripheral Pulses Capillary Refill: Less Than 3 Seconds Peripheral Pulses: 2+ Radial Pulses (R), 2+ Radial Pulses (L) Gastrointestinal: non tender, soft Extremity: Other (LE wrapped bilaterally, could not access legs. 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 titrate Fi02 for Sp02 90-92% -Pt uses vent to mask at home -repeat ABG at 1300 -Start Solumedrol 40 Q 6 -SVNs - Duoneb currently Q2. Add pulmicort BID severe sepsis -Decrease IVF secondary to respiratory status -martinez cultures pending Pulmonary edema -Give bumex IV x1 -Decrease IVF to 30cc/hr Multiple hospitalizations -Consult social work and hospice for education RLD -Last PFT was 07/2018 - Shows severe RLD with asthma and decreased DLCO AsthmaAE - SVNS, Advair, Singulair, Claritin -Pt uses symbicort and proair as out patient -Pt has a nebulizer at home with Duoneb Diastolic CHF EF 60% -give bumex 1mg x 1 OHS/VENKATA -vent to mask at home Tobacco use - quit in 1991 Chronic leg wounds - known to Wound care clinic -Wound care is consulted TAMIKA HILARIO DO Dec 15, 2018 06:59
[2018-12-15] MEDS: ASPIRIN E.C. 325 MG (ECOTRIN) TABLET PO SCH (08:22)
[2018-12-15] MEDS: meTOprolol TARTRATE 50 MG (LOPRESSOR) TAB PO SCH ×3 (08:22→22:24)
[2018-12-15] MEDS: DULoxetine 30 MG (CYMBALTA) CAP PO SCH (08:22)
[2018-12-15] MEDS: FINASTERIDE (PROSCAR) 5 MG TAB PO SCH (08:23)
--- NOTE | 2018-12-15 08:51 | Progress Note - Cardiology ---
Cardiology SOAP Progress Note Subjective: No new symptoms He feels his shortness of breath is back to its usual baseline Denies cp or palp or syncope Objective: I&O/Vital Signs 12/14/18 12/14/18 12/14/18 12/14/18 21:00 22:00 22:15 22:49 Pulse 99 98 99 100 Resp 21 B/P (MAP) 173/108 (129) 192/109 (136) 162/100 (120) Pulse Ox 96 96 95 97 O2 Delivery NIV Bilevel NIV Bilevel NIV Bilevel O2 Flow Rate 30.00 30.00 30.00 30.00 12/14/18 12/15/18 12/15/18 12/15/18 23:00 00:00 00:04 00:08 Temp 100.5 Pulse 98 99 96 Resp 33 B/P (MAP) 163/99 (120) 149/96 (113) Pulse Ox 97 97 97 O2 Delivery NIV Bilevel NIV Bilevel O2 Flow Rate 30.00 30.00 30.00 12/15/18 12/15/18 12/15/18 12/15/18 00:08 00:12 01:00 01:00 Pulse 93 94 94 B/P (MAP) 160/90 (113) 149/88 (108) Pulse Ox 97 94 93 O2 Delivery NIV Bilevel NIV Bilevel NIV Bilevel O2 Flow Rate 30.00 30.00 FiO2 30 12/15/18 12/15/18 12/15/18 12/15/18 01:30 02:00 02:03 03:00 Temp 98.8 Pulse 93 96 92 Resp 23 B/P (MAP) 156/87 (110) 153/90 (111) Pulse Ox 93 92 93 O2 Delivery NIV Bilevel NIV Bilevel O2 Flow Rate 30.00 30.00 30.00 12/15/18 12/15/18 12/15/18 12/15/18 04:00 04:00 04:11 04:45 Pulse 93 88 90 Resp 23 B/P (MAP) 157/93 (114) 139/82 (101) Pulse Ox 94 92 93 93 O2 Delivery NIV Bilevel NIV Bilevel NIV Bilevel O2 Flow Rate 30.00 30.00 30.00 FiO2 30 12/15/18 12/15/18 12/15/18 06:20 06:50 07:00 Pulse 85 96 B/P (MAP) 133/95 (108) Pulse Ox 95 91 O2 Delivery NIV Bilevel Vapotherm O2 Flow Rate 30.00 30.00 FiO2 40 12/15/18 00:00 Intake Total 2490 ml Output Total 600 ml Balance 1890 ml Weight (Pounds): 456 Weight (Ounces): 0.0 Weight (Calculated Kilograms): 206.703669 Constitutional: AAO x 3, well-developed, well-nourished Respiratory: No accessory muscle use, No respiratory distress; chest expansion is symmetric, chest is bilaterally symmetric, other (fair air entry; diminished) Cardiovascular: regular rate-rhythm; No JVD; S1 and S2 Gastrointestional: No tender; soft, round, audible bowel sounds Extremities: other (bilat pitting and non-pitting edema LE) Neurologic/Psychiatric: grossly intact Skin: normal color, other (dressings to LE bilat D&I; dressings not removed) Results/Procedures: Labs Laboratory Tests 12/14/18 11:26: Glucometer 168H 12/14/18 12:50: Blood Gas Puncture Site rt radial, Blood Gas Patient Temperature 96, Arterial Blood pH 7.41, Arterial Blood Partial Pressure CO2 46H, Arterial Blood Partial Pressure O2 60L, Arterial Blood HCO3 29H, Arterial Blood Total CO2 30.8, Arterial Blood Oxygen Saturation 93L, Arterial Blood Base Excess 4.6H, Vitaly Test positive, Blood Gas Ventilator Setting YES, Blood Gas Inspired Oxygen 50% 12/14/18 16:12: Glucometer 158H 12/14/18 20:48: Glucometer 211H 12/15/18 00:06: Glucometer 196H 12/15/18 02:53: White Blood Count 9.0, Red Blood Count 3.85L, Hemoglobin 10.5L, Hematocrit 34L, Mean Corpuscular Volume 89, Mean Corpuscular Hemoglobin 27, Mean Corpuscular Hemoglobin Concent 31L, Red Cell Distribution Width 16.1H, Platelet Count 167, Mean Platelet Volume 10.8H, Neutrophils (%) (Auto) 78H, Lymphocytes (%) (Auto) 10L, Monocytes (%) (Auto) 11, Eosinophils (%) (Auto) 1, Basophils (%) (Auto) 0, Neutrophils # (Auto) 7.0, Lymphocytes # (Auto) 0.9L, Monocytes # (Auto) 1.0, Eosinophils # (Auto) 0.1, Basophils # (Auto) 0.0, Sodium Level 140, Potassium Level 3.8, Chloride Level 103, Carbon Dioxide Level 25, Anion Gap 12, Blood Urea Nitrogen 18, Creatinine 0.92, Estimat Glomerular Filtration Rate > 60, BUN/Creatinine Ratio 20, Glucose Level 167H, Calcium Level 9.0, Phosphorus Level 1.7L, Magnesium Level 1.9, B-Type Natriuretic Peptide 138.3H 12/15/18 05:15: Blood Gas Puncture Site RIGHT RADIAL, Blood Gas Patient Temperature 98.9, Arterial Blood pH 7.48H, Arterial Blood Partial Pressure CO2 39, Arterial Blood Partial Pressure O2 99H, Arterial Blood HCO3 28H, Arterial Blood Total CO2 29.4, Arterial Blood Oxygen Saturation 99, Arterial Blood Base Excess 4.7H, Vitaly Test YES-POS, Blood Gas Ventilator Setting NO, Blood Gas Inspired Oxygen 30% Microbiology 12/13/18 Blood Culture - Preliminary, Resulted No growth 12/13/18 Influenza Types A,B Antigen (EDUARD) - Final, Complete 12/13/18 Urine Culture - Final, Complete NO GROWTH Laboratory Tests 12/13/18 13:24 12/14/18 03:10 12/15/18 02:53 A/P: Assessment: UTI with sepsis - management per medical/ICU services Acute on chronic respiratory failure multi-factorial Echocardiogram of 08-29-[address] Nicole showed LVEF 70-75%. Concentric hypertrophy. PASP 40 mmHg. Chronic CHUNG and sleep apnea, related to obesity-hypoventilation syndrome No evidence of myocardial ischemia or infarction, LVEF 72% on MPI of July 2017 Hypertension Hypertriglyceridemia Morbid obesity with BMI approx 65 H/o isolated PVCs Normal cors and normal cardiac hemodynamics reported on cardiac cath of July [address] Paula Fibromyalgia MAGGYD DM II H/o depression, currently controlled Chronic variable leg swelling and stasis dermatitis and venous leg ulcers, likely related to venous insuff CKD stage 3 - 4, likely due to diabetic nephropathy - follows with Dr. Mina Lassiter of nephrology services Not suitable of SOFIA-inhib or ARB due a h/o hyperkalemia on those agents Minimal bilat carotid arterial disease per u/s of July 2017 Plan: Continue anti-hypertensive regimen Monitor labs I answered his CV-related questions FLORIN GREENBERG MD FACP FAC CCDS Dec 15, 2018 08:51
[2018-12-15] MEDS ORDERED: lisINopril 20 MG (PRINIVIL) TABLET PO SCH (09:00)
[2018-12-15] MEDS ORDERED: FUROSEMIDE 40 MG/4 ML INJ (LASIX) IVP SCH (09:00)
--- NOTE | 2018-12-15 09:06 | Diagnostic Imaging Report ---
EXAMINATION: Portable erect AP chest at 0353 hours. INDICATION: Shortness of breath. FINDINGS: As noted on the prior exam of 12/14/2018, there are alveolar/interstitial pulmonary infiltrates bilaterally. These findings may represent a combination of pulmonary edema, pneumonia, and/or atelectasis. The heart is enlarged but stable. The mediastinum is prominent but no different than on the prior exam. The osseous structures are intact. External cardiac monitoring electrodes are again noted. IMPRESSION: Stable chest. There has been no adverse change since the prior exam. A followup study would be recommended for continued evaluation. Dictated by: Dictated on workstation # [id number]
[2018-12-15] MEDS: MICONAZOLE 2% POWDER (DESENEX AF) 90 GM TOP SCH ×4 (09:27→22:23)
[2018-12-15] MEDS ORDERED: RT-ALBUTEROL/IPRATROPIUM 3 ML (DUONEB) VIAL INH PRN (10:45)
[2018-12-15] MEDS ORDERED: RT-ALBUTEROL/IPRATROPIUM 3 ML (DUONEB) VIAL INH SCH ×2 (11:00→14:00)
--- NOTE | 2018-12-15 11:00 | NUR ---
Pastoral care visit.
[2018-12-15] MEDS: methylPREDNISolone 40 MG/ML (Solu-MEDROL) VIAL IV SCH ×2 (11:09→20:47)
[2018-12-15] MEDS: hydrALAZINE (APESOLINE) 20 MG/ML VIAL IV PRN (11:36)
--- NOTE | 2018-12-15 13:20 | NUR ---
THIS RN CALLED REPORT TO ESPERANZA PERES ON 4TH FLOOR. FULL REPORT GIVEN, INCLUDING ISOLATION STATUS. PT TO HAVE CATHETER D/C'D BEFORE TRANSFER HOWEVER PT REFUSED CATHETER REMOVAL. PT STATED "I DON'T WANT IT OUT YET, JUST LEAVE IT IN." THIS RN INFORMED ESPERANZA PERES OF PT REFUSAL. PT ALSO REFUSED TO BE TURNED DURING THIS SHIFT. PT STATE "I AM COMFORTABLE, I'LL ADJUST IF I NEED TO."
--- NOTE | 2018-12-15 13:34 | Progress Note - Hospitalist ---
[facility] GIB[facility] 12/15/18 1334: Subjective HPI/CC On Admission Date Seen by Provider: Dec 15, 2018 Time Seen by Provider: 08:15 Chief complaint: Fall with SOB HPI: This is a 63yoWM with a history of morbid obesity, obesity hypoventilation syndrome also, who is known to me form prior hospital stays about every other months after he suffers a fall at home, cannot get up and becomes short of breath and having difficulty so he was admitted from the ER, placed on broad spectrum antibiotics for UTI and possible early pneumonia, cardiology and pulmonology were consulted, BiPAP was just discontinued and he is doing much better after he was on that. Levophed will be weaned off for hypotension. Cefepime and Vancomycin will be maintained for empiric antibiotic coverage. Chest X-ray revealed enlarged heart. Appreciate all consultants help. Subjective/Events-last exam Pt was alert and oriented and appeared in no acute distress. Denied pain The patient is yet to have BM but says he has the urge Patient still has a urinary catheter in. The patient is eating and drinking Patient was found positive for pink eye ROS: patient denied chest pain, N/V, F/C, and SOB Heart: HRRR Lungs: wheezy Abdomen: non tender and bowels sounds present Labs: Stable Vitals: at the moment stable but BP has been trending up. Imaging: X-ray showed no changes when compared to previously taken one. Plan: continue to monitor patients breathing, have pt have a BM, monitor labs and vitals, DC catheter Focused Exam Lactate Level 12/13/18 13:24: Lactic Acid Level 2.25*H 12/13/18 15:34: Lactic Acid Level 1.06 Time of Focused Exam: 17:02 Respiratory: Chest Non Tender, Wheezing Cardiovascular: Regular Rate, Rhythm, No JVD Peripheral Pulses: 2+ Radial Pulses (R), 2+ Radial Pulses (L) Skin: normal color, warm/dry Objective Exam Vital Signs Vital Signs Date Time Temp Pulse Resp B/P (MAP) Pulse Ox O2 Delivery O2 Flow Rate FiO2 12/15/18 12:00 33 159/116 (130) 88 NIV Bilevel 30.00 12/15/18 12:00 40 12/15/18 11:00 87 12/15/18 07:00 98.3 Capillary Refill : Less Than 3 Seconds General Appearance: No Apparent Distress Respiratory: Chest Non Tender, Wheezing Cardiovascular: Regular Rate, Rhythm, No JVD Gastrointestinal: Normal Bowel Sounds, Non Tender Extremity: Normal Capillary Refill Neurologic/Psychiatric: Alert, Oriented x3 Skin: Normal Color, Warm/Dry Results/Procedures Lab Laboratory Tests 12/15/18 02:53 Patient resulted labs reviewed. Assessment/Plan Assessment and Plan Assess & Plan/Chief Complaint Assessment: 1. Acute Respiratory Distress 2. COPD Exacerbation 3. Severe sepsis 4. Acute Kidney Injury 5. Elevated INR 6. Diabetic Neuropathy 7. Eye infection 8. Heart Failure 9. UTI 10. Pneumonia Plan: 1. Consult Pulmonary Care 2. Consult Cardio 3. Continue Abx regimen 4. Sputum culture if possible 5. Review Chest X-ray 6. Continue to monitor labs and vitals 7. Diabetes management 8. Wound care consult 9. DVT prophylaxis 10. Consult Social work for home evaluation 11. PT and OT when able 12. DC catheter when possible 13. Continue patient of current medication and fluids 14. Continue patient on Eye drops Plan: Clinical Quality Measures DVT/VTE Risk/Contraindication: Risk Factor Score Per Nursin RFS Level Per Nursing on Admit: 4+=Very High ADDIE MARTINEZ DO 12/15/18 2100: Subjective Subjective/Events-last exam Palliative care had already spoken to him and he was interested in returning back home with home health nurse for wound care Will DC catheter Hasn't had any bowel movements [place] eye placed in isolation Wheezing noted on exam today but that does show good air expansion Transfer to 4th floor Poor prognosis and code status really needs to be changed to DNR and he appeared to be open to that so will continue to address it during this hospital course. Review of Systems HEENT: Eye Pain Pulmonary: Dyspnea Musculoskeletal: foot pain Objective Exam General Appearance: WD/WN, Chronically ill, Mild Distress, Obese Respiratory: No Accessory Muscle Use, No Respiratory Distress, Decreased Breath Sounds, Wheezing Cardiovascular: Regular Rate, Rhythm, No Edema, No Gallop, No JVD, No Murmur, Normal Peripheral Pulses Neurologic/Psychiatric: Alert, Oriented x3, No Motor/Sensory Deficits, Normal Mood/Affect Assessment/Plan Assessment and Plan Assess & Plan/Chief Complaint Wound care management Eye drops Pain meds Transfer to 4th floor Diagnosis/Problems Diagnosis/Problems (1) Acute and chronic respiratory failure with hypoxia Status: Resolved Resolution Date/Time: 09/17/18 @ 16:37 (2) VENKATA on CPAP Status: Chronic (3) Polypharmacy Status: Chronic (4) Type II diabetes mellitus with complication Status: Chronic (5) Neuropathy Status: Chronic (6) Fibromyalgia Status: Chronic Supervisory-Addendum Brief Verification & Attestation Participated in pt care: history, MDM, physical Personally performed: exam, history, MDM, supervision of care Care discussed with: Medical Student Procedures: n/a Results interpretation: Verified all documentation Verification and Attestation of Medical Student E/M Service A medical student performed and documented this service in my presence. I reviewed and verified all information documented by the medical student and made modifications to such information, when appropriate. I personally performed the physical exam and medical decision making. Addie Martinez, Dec 15, 2018,21:00 [facility] Dec 15, 2018 13:34 ADDIE MARTINEZ DO Dec 15, 2018 21:00
--- NOTE | 2018-12-15 13:40 | NUR ---
Pt to room 431.
--- NOTE | 2018-12-15 15:11 | Physical Therapy Daily Note ---
PT Daily Note-Current Subjective Pt. states he is struggling to breathe, wants up in chair but nursing declines his request as his BP is high and pt. is struggling with breathing at this point. Pt. agrees to bed mobility and LE activity Pain Location: No Pain Reported Comment: pt. reports discomfort from laying in bed as well as sweating and being hot Mental Status Patient Orientation: Normal For Age Attachments: Oxygen (5L) Transfers Therapy Code Descriptions/Definitions Functional [place] Measure: 0=Not Assessed/NA 4=Minimal Assistance 1=Total Assistance 5=Supervision or Setup 2=Maximal Assistance 6=Modified [place] 3=Moderate Assistance 7=Complete [place] Therapy Quality Codes: 6 Independent with activity with or without an assistive device 5 Patient requires set up or clean up by helper. Patient completes activity by themselves 4 Supervision or touching assist (CGA). [place] provide cues , steadying assist 3 The helper provides less than half the effort to complete the activity 2 The helper provides more than half the effort to complete the activity 1 Dependent. The helper does all the effort to complete an activity 7 Patient refused to complete or attempt activity 9 The patient did not perform the activity before the current illness or injury 88 Not attempted due to Medical conditions or safety concerns Scootin Rollin Exercises Supine Ex: Ankle pumps, Heel Slides (limited by abdomen and LE edema etc), Hip abd/add Supine Reps: 12 Treatments BP 173/110, HR 95 BPM, O2 sats 90%. Pt. states he is uncomfortable in bed, making regular gruntal noise on exhalation and appears SOB, HOB lowered and max assist of 2 to scoot pt, up in bed and also instructing him to use LEs to assist by pushing with LEs. Pt. did get moved up about 5 inches and then stated he could not breathe and needed the HOB put back up immediately. Head of bed was elevated again. Bed was then put in chair mode hoping to relieve pressure of pts large hard abdomen on his LEs to provide some ease of breathing but this did not seem to provide this as hoped. Nurse contacting Dr Martinez for further direction and recommends pt. not get up at this time Assessment Current Status: Poor Progress poor to no tolerance for Rx. PT Fdc Goals Flight Data Technician Goals PT Fdc Goals Time Frame: Dec 25, 2018 Transfers (B,C,W/C) (FIM): 4 Gait (FIM): 1 Gait distance (FIM): 1=up to 49 ft Distance: 10' Gait Level of Assist: 4 Gait Assistive Device: FWW PT Plan Treatment/Plan Treatment Plan: Continue Plan of Care Treatment Plan: Bed Mobility, Education, Functional Activity Ghulam, Functional Strength, Gait, Safety, Therapeutic Exercise, Transfers Treatment Duration: Dec 25, 2018 Frequency: 6 times per week Estimated Hrs Per Day: .25 hour per day Patient and/or Family Agrees t: Yes Safety Risks/Education Patient Education: Correct Positioning, Disease Process, Safety Issues Teaching Recipient: Patient Teaching Methods: Discussion Time/GCodes Time In: 1445 Time Out: 1505 Total Billed Treatment Time: 20 Total Billed Treatment 1,FA20m MORALES FUNK INFORMATION TECHNOLOGY AUDIT MANAGER Dec 15, 2018 15:11
[2018-12-15] MEDS ORDERED: hydrALAZINE (APESOLINE) 20 MG/ML VIAL IV PRN (15:15)
--- NOTE | 2018-12-15 16:45 | NUR ---
pt complaining of shortness of breath and noted increased work of breathing. RT notified. Pt put back on BiPAP.
[2018-12-15] MEDS ORDERED: TROUGH ORDER-PHARMACY XX NR (17:00)
[2018-12-15] MEDS ORDERED: WATER (STERILE) FOR INJECTION 10 ML ONE ×2 (20:33→22:41)
[2018-12-15] MEDS ORDERED: CEFEPIME 1 GM (MAXIPIME) VIAL ONE ×2 (20:33→22:41)
[2018-12-15] MEDS ORDERED: DOXEPIN HCL 200 MG PO SCH (21:00)
[2018-12-15] MEDS ORDERED: NON-FORMULARY MEDICATION 1 EA EA (Acetaminophen (Acetaminophen Extra Strength) 1,000 MG) PO SCH (21:00)
[2018-12-15] MEDS ORDERED: NON-FORMULARY MEDICATION 1 EA EA (Budesonide/Formoterol Fumarate (Symbicort 160-4.5 Mcg In INH PRN (21:00)
[2018-12-15] MEDS ORDERED: NON-FORMULARY MEDICATION 1 EA EA (Pregabalin (Lyrica) 200 MG) PO SCH (21:00)
[2018-12-15] MEDS ORDERED: NON-FORMULARY MEDICATION 1 EA EA (Montelukast Sodium (Singulair) 10 MG) PO SCH (21:00)
[2018-12-15] MEDS ORDERED: NON-FORMULARY MEDICATION 1 EA EA (Metoprolol Tartrate 50 MG) PO SCH (21:00)
[2018-12-15] MEDS ORDERED: NON-FORMULARY MEDICATION 1 EA EA (Polyethylene Glycol 3350 (Miralax) 17 GM) PO SCH (21:00)
[2018-12-15] MEDS: ATORVASTATIN 40 MG (LIPITOR) TABLET PO SCH (22:23)
[2018-12-15] MEDS: MONTELUKAST 10 MG (SINGULAIR) TAB PO SCH (22:24)
[2018-12-15] MEDS: DOXEPIN 25 MG (SINEquan) CAP PO SCH (22:24)
[2018-12-15] MEDS: POLYETHYLENE GLYCOL 17 GM (MIRALAX) PACK PO SCH (22:24)
[2018-12-15] MEDS: PREGABALIN 100 MG (LYRICA) CAPSULE PO SCH (22:27)
[2018-12-16] MEDS: GENTAMICIN 0.3% OPHTH SOLN 5 ML OU SCH ×8 (00:17→20:14)
[2018-12-16 00:29] VITALS: BP 161/84
[2018-12-16] MEDS: CEFEPIME 1,000 MG/SWFI 10 ML IV PUSH IV SCH ×8 (01:46→19:50)
[2018-12-16] MEDS: RT-ALBUTEROL/IPRATROPIUM 3 ML (DUONEB) VIAL INH SCH ×6 (03:42→22:52)
[2018-12-16 04:30] VITALS: BP 110/76
[2018-12-16] MEDS ORDERED: TROUGH ORDER-PHARMACY XX NR (06:00)
[2018-12-16 06:46] LABS: BASOPHILS % (AUTO) 0 % (0-10); EOSINOPHILS % (AUTO) 0 % (0-10); HEMATOCRIT 35 % (40-54); HEMOGLOBIN 10.9 G/DL (13.3-17.7); LYMPHOCYTES # (AUTO) 0.4 X 10^3 (1.0-4.0); LYMPHOCYTES % (AUTO) 5 % (12-44); MEAN CORPUSCULAR HEMOGLOBIN 27 PG (25-34); MEAN CORPUSCULAR HGB CONC 31 G/DL (32-36); MEAN CORPUSCULAR VOLUME 89 FL (80-99); MEAN PLATELET VOLUME 10.4 FL (7.4-10.4); MONOCYTES # (AUTO) 0.4 X 10^3 (0.0-1.0); MONOCYTES % (AUTO) 6 % (0-12); NEUTROPHILS # (AUTO) 7.2 X 10^3 (1.8-7.8); NEUTROPHILS % (AUTO) 90 % (42-75); PLATELET COUNT 188 10^3/uL (130-400); RED CELL DISTRIBUTION WIDTH 16.3 % (10.0-14.5)
[2018-12-16] MEDS: inSUlin ASPART (NovoLOG) 1 UNIT/0.01 ML (CHARGE PER UNIT) SC SCH ×4 (06:52→20:06)
[2018-12-16] MEDS: KCL 20 MEQ TAB (K-DUR) PO SCH (06:52)
[2018-12-16 07:10] LABS: ALANINE AMINOTRANSFERASE 13 U/L (0-55); ALBUMIN 3.3 GM/DL (3.2-4.5); ALKALINE PHOSPHATASE 79 U/L (40-136); BILIRUBIN,TOTAL 1.3 MG/DL (0.1-1.0); BUN/CREATININE RATIO 21; CALCIUM 8.8 MG/DL (8.5-10.1); CARBON DIOXIDE 22 MMOL/L (21-32); CHLORIDE 105 MMOL/L (98-107); CREATININE SERUM 1.08 MG/DL (0.60-1.30); GFR ESTIMATED > 60; GLUCOSE 203 MG/DL (70-105); MAGNESIUM 1.6 MG/DL (1.6-2.4); POTASSIUM 4.6 MMOL/L (3.6-5.0); SODIUM 140 MMOL/L (135-145); TOTAL PROTEIN 6.5 GM/DL (6.4-8.2)
[2018-12-16] MEDS: RT-BUDESONIDE NEBS 0.5 MG/2ML (PULMICORT) AMP INH SCH ×2 (07:24→22:53)
[2018-12-16] MEDS: VANCOMYCIN 2,500 MG/NS 500 ML IVPB IV SCH ×2 (07:29)
[2018-12-16 08:00] VITALS: BP 122/74
[2018-12-16] MEDS ORDERED: RT-ADVAIR HFA 115/21 MCG PER PUFF IH SCH (08:00)
--- NOTE | 2018-12-16 08:08 | Wound Care Assessment ---
Wound Care Assessment Date Seen by Provider: Dec 16, 2018 Time Seen by Provider: 07:30 Chief Complaint R great toe and bilateral calf ulcers. HPI The patient is a 63 year old male followed in the out-patient Wound Clinic for the above ulcers. He is admitted for respiratory failure, is currently breathing OK, and will not be wrestled around to check his wounds. Previous dressing orders are continued. 12/16/18 Interval Note: Transferred to floor. Breathing is better. Less edema. Mamadou has bunched up and there is new ulcer of R calf. Will hold Mamadou wraps while in house. Past Medical History: Admits Diabetes Type II, Admits Heart Disease (Morbid obesity) Smoking Status: Former Smoker Recreational Drug Use: No Alcohol Use: Denies Use Review of Systems Pulmonary: Dyspnea Cardiovascular: No: Chest Pain Exam Vital Signs Date Time Temp Pulse Resp B/P (MAP) Pulse Ox O2 Delivery O2 Flow Rate FiO2 12/16/18 07:27 73 18 90 30.00 12/16/18 04:30 98.8 110/76 (87) NIV Bilevel 12/15/18 12:00 40 Capillary Refill : Less Than 3 Seconds General Appearance: no apparent distress Respiratory: no respiratory distress Extremities: other (R great toe ulcer -- 1.2 x 1.5 x 0.2 cm, base 100% slough. Mod. s.s. drainage. R calf two ulcers, largest -- 1.2 x 2.2 x 0.2 cm, base 100% granulation.) Results Laboratory Tests 12/15/18 11:00: Glucometer 164H 12/15/18 17:03: Vancomycin Level Trough 24.6H 12/15/18 17:05: Glucometer 286H 12/15/18 20:31: Glucometer 241H 12/16/18 05:23: Glucometer 196H 12/16/18 06:00: White Blood Count 8.0, Red Blood Count 4.00L, Hemoglobin 10.9L, Hematocrit 35L, Mean Corpuscular Volume 89, Mean Corpuscular Hemoglobin 27, Mean Corpuscular Hemoglobin Concent 31L, Red Cell Distribution Width 16.3H, Platelet Count 188, Mean Platelet Volume 10.4, Neutrophils (%) (Auto) 90H, Lymphocytes (%) (Auto) 5L , Monocytes (%) (Auto) 6, Eosinophils (%) (Auto) 0, Basophils (%) (Auto) 0, Neutrophils # (Auto) 7.2, Lymphocytes # (Auto) 0.4L, Monocytes # (Auto) 0.4, E osinophils # (Auto) 0.0, Basophils # (Auto) 0.0, Sodium Level 140, Potassium Level 4.6, Chloride Level 105, Carbon Dioxide Level 22, Anion Gap 13, Blood Urea Nitrogen 23H, Creatinine 1.08, Estimat Glomerular Filtration Rate > 60, BUN/C reatinine Ratio 21, Glucose Level 203H, Calcium Level 8.8, Corrected Calcium 9.4, Magnesium Level 1.6, Total Bilirubin 1.3H, Aspartate Amino Transf (AST/SGOT) 25, Alanine Aminotransferase (ALT/SGPT) 13, Alkaline Phosphatase 79, Total Protein 6.5, Albumin 3.3, Vancomycin Level Trough 29.0*H Microbiology 12/13/18 Blood Culture - Preliminary, Resulted No growth 12/14/18 MRSA Screen - Final, Complete 12/13/18 Urine Culture - Final, Complete NO GROWTH Assessment/Plan/Dx 1. Diabetic foot ulcer, R great toe, Shane Grade 2. 2. Bilateral calf venous insufficiency ulcer, full thickness. 3. Diabetes, with peripheral neuropathy. 4. Morbid obesity. Plan: Will hold Mamadou wraps in hospital, as they are bunching up. Will follow. ALFONSO ESTRADA MD Dec 16, 2018 08:08
[2018-12-16] MEDS: methylPREDNISolone 40 MG/ML (Solu-MEDROL) VIAL IV SCH (08:24)
[2018-12-16] MEDS: PREGABALIN 100 MG (LYRICA) CAPSULE PO SCH ×3 (08:24→19:50)
[2018-12-16] MEDS: LACTOBACILLUS ACIDOPHILUS (PROBIOTIC) CAPSULE PO SCH (08:25)
[2018-12-16] MEDS: meTOprolol TARTRATE 50 MG (LOPRESSOR) TAB PO SCH ×2 (08:25→19:51)
[2018-12-16] MEDS: ASPIRIN E.C. 325 MG (ECOTRIN) TABLET PO SCH (08:25)
[2018-12-16] MEDS: FINASTERIDE (PROSCAR) 5 MG TAB PO SCH (08:25)
[2018-12-16] MEDS: lisINopril 20 MG (PRINIVIL) TABLET PO SCH (08:25)
[2018-12-16] MEDS: DULoxetine 30 MG (CYMBALTA) CAP PO SCH (08:25)
[2018-12-16] MEDS: FUROSEMIDE 20 MG (LASIX) TAB PO SCH ×2 (08:26→16:14)
[2018-12-16] MEDS: ACETAMINOPHEN 500 MG TAB (TYLENOL) PO SCH ×3 (08:26→19:52)
[2018-12-16] MEDS: MICONAZOLE 2% POWDER (DESENEX AF) 90 GM TOP SCH ×4 (08:28→19:52)
[2018-12-16] MEDS ORDERED: NON-FORMULARY MEDICATION 1 EA EA (L.acidoph & Paracasei,B.lactis (Probiotic) 1 CAP) PO SCH (09:00)
[2018-12-16] MEDS ORDERED: LIDOCAINE 4% (SALONPAS) PATCH TOP PRN (09:00)
[2018-12-16] MEDS ORDERED: NON-FORMULARY MEDICATION 1 EA EA (Duloxetine HCl 60 MG) PO SCH (09:00)
[2018-12-16] MEDS: ARTIFICAL TEARS 0.4 ML UNIT DOSE (REFRESH PLUS) OU PRN (09:32)
--- NOTE | 2018-12-16 10:39 | Physical Therapy Daily Note ---
PT Daily Note-Current Subjective Patient agrees to OOB. No c/o. Mental Status Patient Orientation: Normal For Age Attachments: Oxygen, [place] Catheter Transfers Therapy Code Descriptions/Definitions Functional [place] Measure: 0=Not Assessed/NA 4=Minimal Assistance 1=Total Assistance 5=Supervision or Setup 2=Maximal Assistance 6=Modified [place] 3=Moderate Assistance 7=Complete [place] Therapy Quality Codes: 6 Independent with activity with or without an assistive device 5 Patient requires set up or clean up by helper. Patient completes activity by themselves 4 Supervision or touching assist (CGA). [place] provide cues , steadying assist 3 The helper provides less than half the effort to complete the activity 2 The helper provides more than half the effort to complete the activity 1 Dependent. The helper does all the effort to complete an activity 7 Patient refused to complete or attempt activity 9 The patient did not perform the activity before the current illness or injury 88 Not attempted due to Medical conditions or safety concerns Transfers (B, C, W/C) (FIM): 3 Scootin Supine to/from Sit: 3 Sit to/from Stand: 6 Bed to/from Chair: 6 patient has difficulty with bed mobility due to morbid obesity. Sit to stand to recliner with FWW without difficulty Exercises Seated Therapy Exercises: Long arc quads Seated Reps: 15 Assessment Patient is up in recliner with needs met. PT to increase activity as tolerated by patient. PT Tape Cutting Machine Operator Goals Tape Cutting Machine Operator Goals PT Correction Goals Time Frame: Dec 25, 2018 Transfers (B,C,W/C) (FIM): 4 Gait (FIM): 1 Gait distance (FIM): 1=up to 49 ft Distance: 10' Gait Level of Assist: 4 Gait Assistive Device: FWW PT Plan Treatment/Plan Treatment Plan: Continue Plan of Care Treatment Plan: Bed Mobility, Education, Functional Activity Ghulam, Functional Strength, Gait, Safety, Therapeutic Exercise, Transfers Treatment Duration: Dec 25, 2018 Frequency: 6 times per week Estimated Hrs Per Day: .25 hour per day Patient and/or Family Agrees t: Yes Time/GCodes Time In: 934 Time Out: 943 Total Billed Treatment Time: 9 Total Billed Treatment 1 visit FA 9 min SAI ZHANG PT Dec 16, 2018 10:39
--- NOTE | 2018-12-16 11:41 | Progress Note - Hospitalist ---
[facility] 12/16/18 1141: Subjective HPI/CC On Admission Date Seen by Provider: Dec 16, 2018 Time Seen by Provider: 07:55 Chief complaint: Fall with SOB HPI: This is a 63yoWM with a history of morbid obesity, obesity hypoventilation syndrome also, who is known to me form prior hospital stays about every other months after he suffers a fall at home, cannot get up and becomes short of breath and having difficulty so he was admitted from the ER, placed on broad spectrum antibiotics for UTI and possible early pneumonia, cardiology and pulmonology were consulted, BiPAP was just discontinued and he is doing much better after he was on that. Levophed will be weaned off for hypotension. Cefepime and Vancomycin will be maintained for empiric antibiotic coverage. Chest X-ray revealed enlarged heart. Appreciate all consultants help. Subjective/Events-last exam Sterling was alert and oriented and in no acute distress, pleasant and seems to be doing much better He has minor body pain and his legs ache Patient states his eyes are improving with the eye drops He has been eating and drinking Patient had a bowel movement yesterday and still has catheter present (will DC) Patient has been working with PT ROS: Patient denies chest pain, SOB, N/V and F/C Heart: HRRR Lungs: sounded better but hard to differentiate completely over the bipap Abdominal exam: normal bowel sounds and nontender Vitals: stable Labs: Stable Plan: patient is improving and he states he is feeling better, we should continue breathing regimen, medication regimen, DC catheter, have PT as tolerate d, Dr. Adams note stated we should hold SOFIA wraps on legs since patient is in house. Continue to monitor patient and make sure he is turning to avoid any pressure ulcers. Focused Exam Lactate Level 12/13/18 13:24: Lactic Acid Level 2.25*H 12/13/18 15:34: Lactic Acid Level 1.06 Time of Focused Exam: 17:02 Respiratory: Chest Non Tender, Normal Breath Sounds, No Accessory Muscle Use, No Respiratory Distress Cardiovascular: Regular Rate, Rhythm, No JVD Peripheral Pulses: 2+ Radial Pulses (R), 2+ Radial Pulses (L) Objective Exam Vital Signs Vital Signs Date Time Temp Pulse Resp B/P (MAP) Pulse Ox O2 Delivery O2 Flow Rate FiO2 12/16/18 11:03 97 High Flow N/C 4.00 12/16/18 08:00 100 12/16/18 08:00 98.6 90 18 122/74 (90) Capillary Refill : Less Than 3 Seconds General Appearance: No Apparent Distress, Obese Respiratory: Chest Non Tender, Normal Breath Sounds, No Accessory Muscle Use, No Respiratory Distress Cardiovascular: Regular Rate, Rhythm, No JVD Gastrointestinal: Normal Bowel Sounds, Non Tender Extremity: Pedal Edema, Other (Bilater LE wounds ) Neurologic/Psychiatric: Alert, Oriented x3 Results/Procedures Lab Laboratory Tests 12/16/18 06:00 Patient resulted labs reviewed. Assessment/Plan Assessment and Plan Assess & Plan/Chief Complaint Assessment: 1. Acute Respiratory Distress 2. COPD Exacerbation 3. Severe sepsis 4. Acute Kidney Injury 5. Elevated INR 6. Diabetic Neuropathy 7. Eye infection 8. Heart Failure 9. UTI 10. Pneumonia Plan: 1. Continue Pulmonary Care 2. Consult Cardio 3. Continue Abx regimen 4. Sputum culture if possible 5. Review Chest X-ray 6. Continue to monitor labs and vitals 7. Diabetes management 8. Wound care, per Dr. Adams note hold SOFIA wraps while in house 9. DVT prophylaxis 10. Consult Social work for home evaluation 11. PT and OT when able 12. DC catheter 13. Continue patient of current medication and fluids 14. Continue patient on Eye drops Plan: Clinical Quality Measures DVT/VTE Risk/Contraindication: Risk Factor Score Per Nursin RFS Level Per Nursing on Admit: 4+=Very High ADDIE BRAUN DO 12/16/182142: Subjective Subjective/Events-last exam Pt is doing about the same. Tolerating BiPAP at night. Minor pain all over his body. Restarted all of his home medications yesterday. Dr. Galvez managing the lower extremity wounds. Will discontinue the franklin catheter. Bowels are moving for the Pt. Unsure what the endpoint will be for this Pt regarding discharge since he insists on going home with home health. Review of Systems General: Fatigue Pulmonary: Dyspnea Objective Exam General Appearance: No Apparent Distress, WD/WN, Chronically ill, Obese Respiratory: Chest Non Tender, Normal Breath Sounds, No Accessory Muscle Use, No Respiratory Distress, Wheezing Assessment/Plan Assessment and Plan Assess & Plan/Chief Complaint Disposition? Needs hospice Needs DNR Continue supportive care Diagnosis/Problems Diagnosis/Problems (1) Chronic cutaneous venous stasis ulcer Status: Chronic (2) Hypertension Status: Chronic (3) Hypoxemia Status: Acute (4) Acute respiratory distress Status: Acute (5) Acute kidney injury Status: Acute (6) Hypokalemia Status: Acute (7) Multiple falls Status: Chronic (8) Morbid obesity with BMI of 50.0-59.9, adult Status: Chronic (9) DVT prophylaxis Status: Acute (10) Fibromyalgia Status: Chronic (11) Neuropathy Status: Chronic (12) Type II diabetes mellitus with complication Status: Chronic (13) Obstructive sleep apnea Status: Chronic (14) Pneumonia Status: Resolved Resolution Date/Time: 09/17/18 @ 16:37 (15) Bacteremia due to group B Streptococcus Status: Resolved Resolution Date/Time: 09/17/18 @ 16:37 (16) Polypharmacy Status: Chronic (17) COPD with acute exacerbation Status: Resolved Resolution Date/Time: 09/17/18 @ 16:37 (18) VENKATA on CPAP Status: Chronic (19) Acute and chronic respiratory failure with hypoxia Status: Resolved Resolution Date/Time: 09/17/18 @ 16:37 Supervisory-Addendum Brief Verification & Attestation Participated in pt care: history, MDM, physical Personally performed: exam, history, MDM, supervision of care Care discussed with: Medical Student Procedures: n/a Results interpretation: Verified all documentation Verification and Attestation of Medical Student E/M Service A medical student performed and documented this service in my presence. I reviewed and verified all information documented by the medical student and made modifications to such information, when appropriate. I personally performed the physical exam and medical decision making. Addie Braun, Dec 16, 2018,21:43 [facility] Dec 16, 2018 11:41 ADDIE BRAUN DO Dec 16, 2018 21:43
[2018-12-16 12:00] VITALS: BP 98/64
--- NOTE | 2018-12-16 13:14 | NUR ---
PALLIATIVE CARE RN in to see the patient. He reports feeling good today and back to his baseline. He would like to go home as soon as possible. Of note patient still has a Gonzalez catheter, is still on L NC but this is normal. He is off and on BiPAP but this also is normal as he reports that Paola sees him from [facility]. We revisited the discussion regarding Hospice care, he declines further discussion at this time stating "I want to keep with my wound care nurse right now, she comes out 4 times a week". Let the SW know of his wish to go home with current HHC and wound care.
--- NOTE | 2018-12-16 15:12 | NUR ---
RIGHT CALF DRESSING CHANGED BY THIS RN PER DR. ESTRADA'S ORDERS AT THIS TIME. RIGHT GREAT TOE DRESSING CHANGED WITH SILVER AG PER DR. ESTRADA'S ORDERS. LEFT HEEL DRESSING CHANGE ALSO AT THIS TIME PER DR. ESTRADA'S ORDERS.
--- NOTE | 2018-12-16 15:35 | Pulmonary Progress Note ---
Subjective Time Seen by a Provider: 08:29 Subjective/Events-last exam Appears to be doing better. Sepsis Event Evaluation Height, Weight, BMI Height: 5'10.00" Weight: 396lbs. 12.8oz. 179.761281wu; 65.4 BMI Method:Stated Focused Exam Time of Focused Exam: 17:02 Exam Exam Vital Signs Date Time Temp Pulse Resp B/P (MAP) Pulse Ox O2 Delivery O2 Flow Rate FiO2 12/16/18 14:22 90 High Flow N/C 4.00 12/16/18 12:00 98.4 103 20 98/64 (75) 95 NIV Bilevel 30.00 12/16/18 11:03 97 High Flow N/C 4.00 12/16/18 08:00 78 NIV Bilevel 4.00 100 12/16/18 08:00 98.6 90 18 122/74 (90) 78 NIV Bilevel 30.00 12/16/18 07:27 73 18 90 30.00 12/16/18 04:30 98.8 95 22 110/76 (87) 95 NIV Bilevel 30.00 12/16/18 03:42 74 28 95 30.00 12/16/18 00:29 98.4 94 23 161/84 (109) 96 NIV Bilevel 30.00 12/15/18 22:56 80 29 96 30.00 12/15/18 20:50 96 NIV Bilevel 12/15/18 20:00 99.3 103 24 162/100 (120) 96 NIV Bilevel 30.00 12/15/18 19:55 30.00 12/15/18 19:50 85 27 95 30.00 12/15/18 16:00 97.8 109 23 169/96 (120) 93 NIV Bilevel 30.00 I & O 12/16/18 07:00 Intake Total 1045 ml Output Total 2450 ml Balance -1405 ml Height & Weight Height: 5'10.00" Weight: 396lbs. 12.8oz. 179.994460oc; 65.4 BMI Method:Stated General Appearance: No Apparent Distress, Obese HEENT: Moist Mucous Membranes Neck: Full Range of Motion, Non Tender Respiratory: Chest Non Tender, Normal Breath Sounds, No Accessory Muscle Use, No Respiratory Distress Cardiovascular: Regular Rate, Rhythm, No JVD Capillary Refill: Less Than 3 Seconds Peripheral Pulses: 2+ Radial Pulses (R), 2+ Radial Pulses (L) Gastrointestinal: non tender, soft Extremity: Normal Capillary Refill, Pedal Edema, Other (Bilater LE wounds ) Neurologic/Psychiatric: Alert, Oriented x3 Skin: Normal Color, Warm/Dry, Other (Bilateral LE wounds, dry abdominal skin ) Results Lab Laboratory Tests 12/15/18 02:53 12/16/18 06:00 Assessment/Plan Assessment/Plan Acute on chronic respiratory failure - biPAP QHS -Pt uses vent to mask at home -Start Solumedrol 40 Q 6 -SVNs - Duoneb currently Q2. Add pulmicort BID Pulmonary edema -monitor Multiple hospitalizations -Consult social work and hospice for education RLD -Last PFT was 07/2018 - Shows severe RLD with asthma and decreased DLCO AsthmaAE - SVNS, Advair, Singulair, Claritin -Pt uses symbicort and proair as out patient -Pt has a nebulizer at home with Duoneb Diastolic CHF EF 60% -give bumex 1mg x 1 OHS/VENKATA -vent to mask at home Tobacco use - quit in 1991 Chronic leg wounds - known to Wound care clinic -Wound care is consulted TAMIKA HILARIO DO Dec 16, 2018 15:35
--- NOTE | 2018-12-16 15:44 | NUR ---
CM/SS. 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 PLAN: Patient plans home at discharge as before where he resides with his father Pardeep Perea, age 96. [facility]: Resume with [facility], update with clinicals and current wound care dressing instructions. Patient's brother Krystian Perea is staying with their dad in the family home at this time. He needs to leave tomorrow home to [facility] and they are traveling to [place] to a granddaughter's birthday event. Whenever Sterling comes to hospital, this puts Pardeep Perea in hardship since he can not manage completely on his own. If Krystian can't come stay, patient has paid privately for caregivers before at $450 per day (10/11). Supervisor Pyrotechnic Loading suggested emergent SNF placement for Pardeep in those situations, private pay for NH much less than private pay in-home caregiver. Supervisor Pyrotechnic Loading reached out to [facility] rn field case manager Karissa Myers. Patient stated that his caregivers are through [facility] now and that they do not always have staff to cover his allotted hours. This is problematic for obvious reasons due to patient's status and needs for home support. Krystian is working with [facility]/Tammy Lozano for Medicaid application for Pardeep. He will need proof of income and assets which patient will have to share/confirm. There is apparently some family discord with patient being overly private and protective of the current business and status of he and his father; however, it could be predicted that some significant event will modify their living arrangement sooner or later. Assist as is possible. Resume services and supports that were in place prior to admission. Supervisor Pyrotechnic Loading has requested that [place] rn field case manager reassess patient needs in case additional hours could be awarded and/or followup on the matter of lack of staff to cover current hours. Patient's discharge transport person will need to bring his portable O2.
--- NOTE | 2018-12-16 15:52 | NUR ---
PATIENT REFUSED TO GO BACK TO BED AT THIS TIME. THIS RN DID STAND THIS PATIENT FOR A POSITION CHNAGE AND THEN SAT PATIENT BACKIN RECLINER AT THIS TIME.
--- NOTE | 2018-12-16 15:59 | Progress Note - Cardiology ---
Cardiology SOAP Progress Note Subjective: Gen malaise and shortness of breath as before No cp or palp or syncope Objective: I&O/Vital Signs 12/16/18 12/16/18 12/16/18 12/16/18 04:30 07:27 08:00 08:00 Temp 98.8 98.6 Pulse 95 73 90 Resp 22 18 18 B/P (MAP) 110/76 (87) 122/74 (90) Pulse Ox 95 90 78 78 O2 Delivery NIV Bilevel NIV Bilevel NIV Bilevel O2 Flow Rate 30.00 30.00 30.00 4.00 FiO2 100 12/16/18 12/16/18 12/16/18 11:03 12:00 14:22 Temp 98.4 Pulse 103 Resp 20 B/P (MAP) 98/64 (75) Pulse Ox 97 95 90 O2 Delivery High Flow N/C NIV Bilevel High Flow N/C O2 Flow Rate 4.00 30.00 4.00 12/16/18 00:00 Intake Total 110 ml Output Total 1150 ml Balance -1040 ml Weight (Pounds): 396 Weight (Ounces): 12.8 Weight (Calculated Kilograms): 179.863778 Constitutional: AAO x 3, well-developed, well-nourished Respiratory: No accessory muscle use, No respiratory distress; chest expansion is symmetric, chest is bilaterally symmetric, other (fair air entry; diminished) Cardiovascular: regular rate-rhythm; No JVD; S1 and S2 Gastrointestional: No tender; soft, round, audible bowel sounds Extremities: other (bilat pitting and non-pitting edema LE) Neurologic/Psychiatric: grossly intact Skin: normal color, warm/dry Results/Procedures: Labs Laboratory Tests 12/15/18 17:03: Vancomycin Level Trough 24.6H 12/15/18 17:05: Glucometer 286H 12/15/18 20:31: Glucometer 241H 12/16/18 05:23: Glucometer 196H 12/16/18 06:00: White Blood Count 8.0, Red Blood Count 4.00L, Hemoglobin 10.9L, Hematocrit 35L, Mean Corpuscular Volume 89, Mean Corpuscular Hemoglobin 27, Mean Corpuscular Hemoglobin Concent 31L, Red Cell Distribution Width 16.3H, Platelet Count 188, Mean Platelet Volume 10.4, Neutrophils (%) (Auto) 90H, Lymphocytes (%) (Auto) 5L , Monocytes (%) (Auto) 6, Eosinophils (%) (Auto) 0, Basophils (%) (Auto) 0, Neutrophils # (Auto) 7.2, Lymphocytes # (Auto) 0.4L, Monocytes # (Auto) 0.4, Eosinophils # (Auto) 0.0, Basophils # (Auto) 0.0, Sodium Level 140, Potassium Level 4.6, Chloride Level 105, Carbon Dioxide Level 22, Anion Gap 13, Blood Urea Nitrogen 23H, Creatinine 1.08, Estimat Glomerular Filtration Rate > 60, BUN/Creatinine Ratio 21, Glucose Level 203H, Calcium Level 8.8, Corrected Calcium 9.4, Magnesium Level 1.6, Total Bilirubin 1.3H, Aspartate Amino Transf (AST/SGOT) 25, Alanine Aminotransferase (ALT/SGPT) 13, Alkaline Phosphatase 79, Total Protein 6.5, Albumin 3.3, Vancomycin Level Trough 29.0*H 12/16/18 11:20: Glucometer 271H Microbiology 12/13/18 Blood Culture - Preliminary, Resulted No growth 12/14/18 MRSA Screen - Final, Complete 12/13/18 Urine Culture - Final, Complete NO GROWTH A/P: Assessment: UTI with sepsis - management per medical/ICU services Acute on chronic respiratory failure multi-factorial Echocardiogram of 08-29-[address] Nicole showed LVEF 70-75%. Concentric hypertrophy. PASP 40 mmHg. Chronic CHUNG and sleep apnea, related to obesity-hypoventilation syndrome No evidence of myocardial ischemia or infarction, LVEF 72% on MPI of July 2017 Hypertension Hypertriglyceridemia Morbid obesity with BMI approx 65 H/o isolated PVCs Normal cors and normal cardiac hemodynamics reported on cardiac cath of July [address] Paula Fibromyalgia DJD DM II H/o depression, currently controlled Chronic variable leg swelling and stasis dermatitis and venous leg ulcers, likely related to venous insuff CKD stage 3 - 4, likely due to diabetic nephropathy - follows with Dr. Mina Lassiter of nephrology services Not suitable of SOFIA-inhib or ARB due a h/o hyperkalemia on those agents Minimal bilat carotid arterial disease per u/s of July 2017 Plan: * Complex management due to multiple comorbidities that seem to emanate from mor bid obesity * I spoke with him in detail regarding CV issues and wgt loss strategies, including bariatric surgery * Monitor labs FLORIN GREENBERG MD FACP [facility] Dec 16, 2018 15:58
[2018-12-16 16:00] VITALS: BP 115/79
[2018-12-16] MEDS: ADVAIR HFA 115/21 MCG INHALER 8 GM IH SCH (18:42)
[2018-12-16] MEDS: DOXEPIN 25 MG (SINEquan) CAP PO SCH (19:50)
[2018-12-16] MEDS: MONTELUKAST 10 MG (SINGULAIR) TAB PO SCH (19:51)
[2018-12-16] MEDS: ATORVASTATIN 40 MG (LIPITOR) TABLET PO SCH (19:52)
[2018-12-16 20:00] VITALS: BP 132/77
[2018-12-16] MEDS ORDERED: LIDOCAINE PATCH REMOVAL TP SCH (21:00)
--- NOTE | 2018-12-16 22:44 | NUR ---
PT'S OUTPUT 50ML THIS [address] GOINS NOTIFIED, NEW ORDERS RECEIVED: LEAVE GUERRIER CATH IN
[2018-12-17] VITALS (7 sets, daily range): BP systolic 107–143; BP diastolic 64–90
[2018-12-17] MEDS: GENTAMICIN 0.3% OPHTH SOLN 5 ML OU SCH ×6 (00:03→22:16)
[2018-12-17] MEDS: RT-ALBUTEROL/IPRATROPIUM 3 ML (DUONEB) VIAL INH SCH ×5 (02:22→18:50)
[2018-12-17] MEDS: CEFEPIME 1,000 MG/SWFI 10 ML IV PUSH IV SCH ×10 (02:31→23:50)
[2018-12-17] MEDS: inSUlin ASPART (NovoLOG) 1 UNIT/0.01 ML (CHARGE PER UNIT) SC SCH ×4 (05:35→22:15)
[2018-12-17] MEDS: KCL 20 MEQ TAB (K-DUR) PO SCH (05:36)
[2018-12-17 06:44] LABS: CALCIUM 9.2 MG/DL (8.5-10.1); CREATININE SERUM 2.22 MG/DL (0.60-1.30); MAGNESIUM 2.2 MG/DL (1.6-2.4); POTASSIUM 5.1 MMOL/L (3.6-5.0)
[2018-12-17] MEDS: RT-BUDESONIDE NEBS 0.5 MG/2ML (PULMICORT) AMP INH SCH (07:06)
[2018-12-17] MEDS: ADVAIR HFA 115/21 MCG INHALER 8 GM IH SCH ×3 (07:06→18:53)
[2018-12-17] MEDS ORDERED: TROUGH ORDER-PHARMACY XX NR (08:00)
--- NOTE | 2018-12-17 08:20 | NUR ---
ORDERS RECEIVED FROM DR HILARIO TO [place] PULMICORT. PT HAS ALREADY RECEIVED PULMICORT THIS A.M.. [facility] NOT GIVEN THIS AM D/T PT RECEIVING PULMICORT.
--- NOTE | 2018-12-17 08:34 | Pulmonary Progress Note ---
Subjective Time Seen by a Provider: 08:32 Subjective/Events-last exam Currently on BiPAP however appears to be doing better. Sepsis Event Evaluation Height, Weight, BMI Height: 5'10.00" Weight: 399lbs. 3.0oz. 181.854493yy; 65.4 BMI Method:Stated Focused Exam Time of Focused Exam: 17:02 Exam Exam Vital Signs Date Time Temp Pulse Resp B/P (MAP) Pulse Ox O2 Delivery O2 Flow Rate FiO2 12/17/18 07:06 70 20 94 30.00 12/17/18 04:00 96.8 76 23 132/81 (98) 97 NIV Bilevel 12/17/18 02:22 73 21 96 30.00 12/17/18 00:35 96.6 72 21 107/64 (78) 92 NIV Bilevel 12/16/18 22:58 78 18 92 30.00 12/16/18 22:52 81 19 94 30.00 12/16/18 20:00 High Flow N/C 4.00 12/16/18 20:00 96.7 88 20 132/77 (95) 95 High Flow N/C 4.00 12/16/18 18:43 Nasal Cannula 4.00 12/16/18 16:00 96.7 79 20 115/79 (91) 93 High Flow N/C 4.00 12/16/18 14:22 90 High Flow N/C 4.00 12/16/18 12:00 98.4 103 20 98/64 (75) 95 NIV Bilevel 30.00 12/16/18 11:03 97 High Flow N/C 4.00 I & O 12/17/18 07:00 Intake Total 1390 ml Output Total 130 ml Balance 1260 ml Height & Weight Height: 5'.00" Weight: 399lbs. 3.0oz. 181.545484hr; 65.4 BMI Method:Stated General Appearance: No Apparent Distress, Obese HEENT: Moist Mucous Membranes Neck: Full Range of Motion, Non Tender Respiratory: Chest Non Tender, Normal Breath Sounds, No Accessory Muscle Use, No Respiratory Distress Cardiovascular: Regular Rate, Rhythm, No JVD Capillary Refill: Less Than 3 Seconds Peripheral Pulses: 2+ Radial Pulses (R), 2+ Radial Pulses (L) Gastrointestinal: non tender, soft Extremity: Normal Capillary Refill, Pedal Edema, Other (Bilater LE wounds ) Neurologic/Psychiatric: Alert, Oriented x3 Skin: Normal Color, Warm/Dry, Other (Bilateral LE wounds, dry abdominal skin ) Results Lab Laboratory Tests 12/16/18 06:00 12/17/18 05:35 Assessment/Plan Assessment/Plan Acute on chronic respiratory failure - biPAP QHS - currently using -Pt uses vent to mask at home -SVNs - Duoneb currently Q2. advair Pulmonary edema -monitor Multiple hospitalizations -Consult social work and hospice for education RLD -Last PFT was 07/2018 - Shows severe RLD with asthma and decreased DLCO AsthmaAE - SVNS, Advair, Singulair, Claritin -Pt uses symbicort and proair as out patient -Pt has a nebulizer at home with Duoneb Diastolic CHF EF 60% -Lasix OHS/VENKATA -vent to mask at home Tobacco use - quit in 1991 Chronic leg wounds - known to Wound care clinic -Wound care is consulted TAMIKA HILARIO DO Dec 17, 2018 08:34
[2018-12-17] MEDS: MICONAZOLE 2% POWDER (DESENEX AF) 90 GM TOP SCH ×4 (08:44→22:16)
[2018-12-17] MEDS: DULoxetine 30 MG (CYMBALTA) CAP PO SCH (08:44)
[2018-12-17] MEDS: PREGABALIN 100 MG (LYRICA) CAPSULE PO SCH ×3 (08:44→22:14)
[2018-12-17] MEDS: FUROSEMIDE 20 MG (LASIX) TAB PO SCH ×2 (08:45→16:29)
[2018-12-17] MEDS: meTOprolol TARTRATE 50 MG (LOPRESSOR) TAB PO SCH ×2 (08:45→22:13)
[2018-12-17] MEDS: ACETAMINOPHEN 500 MG TAB (TYLENOL) PO SCH ×3 (08:45→22:44)
[2018-12-17] MEDS: LACTOBACILLUS ACIDOPHILUS (PROBIOTIC) CAPSULE PO SCH (08:45)
[2018-12-17] MEDS: FINASTERIDE (PROSCAR) 5 MG TAB PO SCH (08:45)
[2018-12-17] MEDS: ASPIRIN E.C. 325 MG (ECOTRIN) TABLET PO SCH (08:46)
[2018-12-17] MEDS: lisINopril 20 MG (PRINIVIL) TABLET PO SCH (08:46)
--- NOTE | 2018-12-17 08:49 | NUR ---
PRIOR TO AM MEDICATION, B/P WAS 109/73 AND PULSE WAS 97
[2018-12-17] MEDS ORDERED: VANCOMYCIN 2,500 MG/NS 500 ML IVPB IV SCH ×2 (09:00)
--- NOTE | 2018-12-17 09:54 | Progress Note - Cardiology ---
Cardiology SOAP Progress Note Subjective: Sitting up in a chair at the bedside. States he would like to go home. No c/o CP or palpitations, Feels his breathing has improved. Objective: I&O/Vital Signs 12/17/18 12/17/18 12/17/18 12/17/18 02:22 04:00 07:06 08:00 Temp 96.8 Pulse 73 76 70 Resp 21 23 20 B/P (MAP) 132/81 (98) Pulse Ox 96 97 94 O2 Delivery NIV Bilevel Nasal Cannula O2 Flow Rate 30.00 30.00 4.00 12/17/18 12/17/18 12/17/18 12/17/18 08:00 08:31 11:21 11:35 Temp 97.2 96.4 Pulse 82 76 Resp 18 18 B/P (MAP) 126/66 (86) 128/68 (88) Pulse Ox 96 91 94 95 O2 Delivery NIV Bilevel Nasal Cannula High Flow N/C Nasal Cannula O2 Flow Rate 30.00 4.00 4.00 4.00 12/17/18 00:00 Intake Total 1370 ml Output Total 100 ml Balance 1270 ml Weight (Pounds): 399 Weight (Ounces): 3.0 Weight (Calculated Kilograms): 181.802086 Constitutional: AAO x 3, well-developed, well-nourished Respiratory: No accessory muscle use, No respiratory distress; chest expansion is symmetric, chest is bilaterally symmetric, other (fair air entry; diminished) Cardiovascular: regular rate-rhythm; No JVD; S1 and S2 Gastrointestional: No tender; soft, round, audible bowel sounds Extremities: other (bilat pitting and non-pitting edema LE) Neurologic/Psychiatric: grossly intact Skin: normal color, warm/dry Results/Procedures: Labs Laboratory Tests 12/16/18 16:04: Glucometer 245H 12/16/18 19:58: Glucometer 277H 12/17/18 05:14: Glucometer 252H 12/17/18 05:35: Sodium Level 140, Potassium Level 5.1H, Chloride Level 103, Carbon Dioxide Level 21, Anion Gap 16H, Blood Urea Nitrogen 40H, Creatinine 2.22H, Estimat Glomerular Filtration Rate 30, BUN/Creatinine Ratio 18, Glucose Level 264H, Calcium Level 9.2, Magnesium Level 2.2 12/17/18 11:17: Glucometer 209H Microbiology 12/13/18 Blood Culture - Preliminary, Resulted No growth 12/14/18 MRSA Screen - Final, Complete 12/13/18 Urine Culture - Final, Complete NO GROWTH A/P: Assessment: UTI with sepsis - management per medical/ICU services Acute on chronic respiratory failure multi-factorial Echocardiogram of 08-29-[address] Nicole showed LVEF 70-75%. Concentric hypertrophy. PASP 40 mmHg. Chronic CHUNG and sleep apnea, related to obesity-hypoventilation syndrome No evidence of myocardial ischemia or infarction, LVEF 72% on MPI of July 2017 Hypertension Hypertriglyceridemia Morbid obesity with BMI approx 65 H/o isolated PVCs Normal cors and normal cardiac hemodynamics reported on cardiac cath of July [address] Nisa ALVAREZ DM II H/o depression, currently controlled Chronic variable leg swelling and stasis dermatitis and venous leg ulcers, likely related to venous insuff CKD stage 3 - 4, likely due to diabetic nephropathy - follows with Dr. Mina Lassiter of nephrology services Not suitable of SOFIA-inhib or ARB due a h/o hyperkalemia on those agents Minimal bilat carotid arterial disease per u/s of July 2017 Plan: * Complex management due to multiple comorbidities that seem to emanate from morbid obesity * I spoke with him in detail regarding CV issues and wgt loss strategies, including bariatric surgery * Monitor labs * OK to discharge from a cardiac stand point Physician Assessment Physician Assessment No cp or palp or syncope or shortness of breath at rest Lungs: good bilat air entry, diminished at the bases Cor: reg Ext: no c/c; chronic, bilateral, moderate, pitting and nonpitting leg swelling A&R * As documented in our note above that I updated (italics) and as noted below * Ok to d/c from cardiac standpoint. Outpt f/u advised * Dr Harmon covering Card Svce over this long weekend SAM MOBLEY ROOTER OPERATOR Dec 17, 2018 09:54 FLORIN GREENBERG MD [facility] Dec 17, 2018 12:58
--- NOTE | 2018-12-17 09:55 | Physical Therapy Daily Note ---
PT Daily Note-Current Subjective Patient agrees to PT. Mental Status Patient Orientation: Normal For Age Attachments: Oxygen, Gonzalez Catheter Transfers Therapy Code Descriptions/Definitions Functional [place] Measure: 0=Not Assessed/NA 4=Minimal Assistance 1=Total Assistance 5=Supervision or Setup 2=Maximal Assistance 6=Modified [place] 3=Moderate Assistance 7=Complete [place] Therapy Quality Codes: 6 Independent with activity with or without an assistive device 5 Patient requires set up or clean up by helper. Patient completes activity by themselves 4 Supervision or touching assist (CGA). [place] provide cues , steadying assist 3 The helper provides less than half the effort to complete the activity 2 The helper provides more than half the effort to complete the activity 1 Dependent. The helper does all the effort to complete an activity 7 Patient refused to complete or attempt activity 9 The patient did not perform the activity before the current illness or injury 88 Not attempted due to Medical conditions or safety concerns Transfers (B, C, W/C) (FIM): 5 Scootin Supine to/from Sit: 5 Sit to/from Stand: 5 Bed to/from Chair: 5 Gait Training Gait (FIM): 1 Distance (FIM): 1=up to 49 ft Distance: 10' Gait Level of Assist: 5 Gait Assistive Device: FWW functional Exercises Seated Therapy Exercises: Ankle pumps, Long arc quads Seated Reps: 15 Assessment Patient tolerated treatment well and is up in recliner with needs met. PT to continue with POC. PT Nursing Home Goals Cane Furniture Maker Goals PT Cane Furniture Maker Goals Time Frame: Dec 25, 2018 Transfers (B,C,W/C) (FIM): 4 Gait (FIM): 1 Gait distance (FIM): 1=up to 49 ft Distance: 10' Gait Level of Assist: 4 Gait Assistive Device: FWW PT Plan Treatment/Plan Treatment Plan: Continue Plan of Care Treatment Plan: Bed Mobility, Education, Functional Activity Ghulam, Functional Strength, Gait, Safety, Therapeutic Exercise, Transfers Treatment Duration: Dec 25, 2018 Frequency: 6 times per week Estimated Hrs Per Day: .25 hour per day Patient and/or Family Agrees t: Yes Time/GCodes Time In: 900 Time Out: 915 Total Billed Treatment Time: 15 Total Billed Treatment 1 visit FA 15 min SAI ZHANG PT Dec 17, 2018 09:55
--- NOTE | 2018-12-17 11:56 | Progress Note - Hospitalist ---
[facility] 12/17/18 1156: Subjective HPI/CC On Admission Date Seen by Provider: Dec 17, 2018 Time Seen by Provider: 07:30 Chief complaint: Fall with SOB HPI: This is a 63yoWM with a history of morbid obesity, obesity hypoventilation syndrome also, who is known to me form prior hospital stays about every other months after he suffers a fall at home, cannot get up and becomes short of breath and having difficulty so he was admitted from the ER, placed on broad spectrum antibiotics for UTI and possible early pneumonia, cardiology and pulmonology were consulted, BiPAP was just discontinued and he is doing much better after he was on that. Levophed will be weaned off for hypotension. Cefepime and Vancomycin will be maintained for empiric antibiotic coverage. Chest X-ray revealed enlarged heart. Appreciate all consultants help. Subjective/Events-last exam Patient was alert and on his bipap. Pt stated his eye pain has gotten better since starting the eye drops. Patient has had minimal urine output and urine catheter is still present. Pt has not had a bowel movement in two days Patient states he does not have pain outside of his norm NO questions or concerns at the moment ROS: patient denied chest pain, SOB, N/V and F/C Heart: HRRR Lungs: patient was on bipap and with minimal effort from the patient it made it hard to definitely hear lungs. Abdomen: non-tender and bowel sounds present Labs: WBC and HgB stable, K+5.1 and Cr 2.22 Plan: Continue to work patient up for decreased urine output Focused Exam Time of Focused Exam: 17:02 Respiratory: Chest Non Tender, No Accessory Muscle Use, No Respiratory Distress Cardiovascular: Regular Rate, Rhythm, No JVD Peripheral Pulses: 2+ Radial Pulses (R), 2+ Radial Pulses (L) Objective Exam Vital Signs Vital Signs Date Time Temp Pulse Resp B/P (MAP) Pulse Ox O2 Delivery O2 Flow Rate FiO2 12/17/18 11:35 95 Nasal Cannula 4.00 12/17/18 11:21 96.4 76 18 128/68 (88) 12/16/18 08:00 100 Capillary Refill : Less Than 3 Seconds General Appearance: No Apparent Distress, Obese Neck: Full Range of Motion, Normal Inspection Respiratory: No Accessory Muscle Use, No Respiratory Distress Cardiovascular: Regular Rate, Rhythm, No JVD Gastrointestinal: Normal Bowel Sounds, Non Tender Extremity: Normal Capillary Refill Neurologic/Psychiatric: Alert, Oriented x3 Results/Procedures Lab Laboratory Tests 12/17/18 05:35 Patient resulted labs reviewed. Assessment/Plan Assessment and Plan Assess & Plan/Chief Complaint Assessment: 1. Acute Respiratory Distress 2. COPD Exacerbation 3. Severe sepsis 4. Acute Kidney Injury 5. Elevated INR 6. Diabetic Neuropathy 7. Eye infection 8. Heart Failure 9. UTI 10. Pneumonia 11. Hyperkalemia Plan: 1. Continue Pulmonary Care 2. Consult Cardio 3. Continue Abx regimen 4. Sputum culture if possible 5. Review Chest X-ray 6. Continue to monitor labs and vitals 7. Diabetes management 8. Wound care, per Dr. Adams note hold SOFIA wraps while in house 9. DVT prophylaxis 10. Consult Social work for home evaluation 11. PT and OT when able 12. Continue to monitor urine output, encourage fluid intake. will be monitoring labs. 13. Continue patient of current medication and fluids 14. Continue patient on Eye drops 15. Medication review due to cr increase and hyperkalemia 16 straight cath for UA Plan: Clinical Quality Measures DVT/VTE Risk/Contraindication: Risk Factor Score Per Nursin RFS Level Per Nursing on Admit: 4+=Very High ADDIE BRAUN DO 12/17/18 1550: Subjective Subjective/Events-last exam Patient disappointed that he cannot go home Cardiology was okay with him discharging but not pulmonology Creatinine elevation and hyperkalemia is delaying discharge Desperately needs a fpc but he still continues to refuse Wound care appreciated Urinary output is less than ideal and Gonzalez catheter is maintained Assessment/Plan Assessment and Plan Assess & Plan/Chief Complaint Lasix versus IVF Monitor closely Poor prognosis Needs [place] Diagnosis/Problems Diagnosis/Problems (1) Acute and chronic respiratory failure with hypoxia Status: Resolved Resolution Date/Time: 09/17/18 @ 16:37 (2) VENKATA on CPAP Status: Chronic (3) COPD with acute exacerbation Status: Resolved Resolution Date/Time: 09/17/18 @ 16:37 (4) Polypharmacy Status: Chronic (5) Obstructive sleep apnea Status: Chronic (6) Neuropathy Status: Chronic (7) Fibromyalgia Status: Chronic (8) Type II diabetes mellitus with complication Status: Chronic Supervisory-Addendum Brief Verification & Attestation Participated in pt care: history, MDM, physical Personally performed: exam, history, MDM, supervision of care Care discussed with: Medical Student Procedures: n/a Results interpretation: Verified all documentation Verification and Attestation of Medical Student E/M Service A medical student performed and documented this service in my presence. I reviewed and verified all information documented by the medical student and made modifications to such information, when appropriate. I personally performed the physical exam and medical decision making. Addie Braun, Dec 17, 2018,15:49 [facility] Dec 17, 2018 11:56 ADDIE BRAUN DO Dec 17, 2018 15:50
--- NOTE | 2018-12-17 16:00 | NUR ---
RECEIVED REPORT FROM AUGUSTINA RN TO ASSUME NURSING CARE, UP IN CHAIR WITH LEGS ELEVATED. DRESSING CHANGED TO LOWER LEGS ORDERED, O2 ON PER NC AT 4 LITERS PER HIGH FLOW TUBING, SALINE LOCK IN RIGHT HAND, CALL LIGHT WITHIN REACH.
[2018-12-17] MEDS ORDERED: inSUlin ASPART (NovoLOG) 1 UNIT/0.01 ML (CHARGE PER UNIT) ONE (16:20)
[2018-12-17] MEDS: DOXEPIN 25 MG (SINEquan) CAP PO SCH (22:11)
[2018-12-17] MEDS: MONTELUKAST 10 MG (SINGULAIR) TAB PO SCH (22:11)
[2018-12-17] MEDS: ATORVASTATIN 40 MG (LIPITOR) TABLET PO SCH (22:14)
[2018-12-17] MEDS: POLYETHYLENE GLYCOL 17 GM (MIRALAX) PACK PO SCH (22:44)
[2018-12-18] VITALS: BP 128/88
[2018-12-18] MEDS: GENTAMICIN 0.3% OPHTH SOLN 5 ML OU SCH ×5 (02:55→17:17)
[2018-12-18] MEDS: CEFEPIME 1,000 MG/SWFI 10 ML IV PUSH IV SCH ×6 (04:57→15:53)
[2018-12-18] MEDS: inSUlin ASPART (NovoLOG) 1 UNIT/0.01 ML (CHARGE PER UNIT) SC SCH ×4 (06:15→21:17)
[2018-12-18] MEDS: RT-ALBUTEROL/IPRATROPIUM 3 ML (DUONEB) VIAL INH SCH ×4 (07:17→19:33)
[2018-12-18 07:22] LABS: POTASSIUM 5.3 MMOL/L (3.6-5.0)
[2018-12-18 07:23] LABS: CALCIUM 9.4 MG/DL (8.5-10.1); CREATININE SERUM 2.92 MG/DL (0.60-1.30); MAGNESIUM 1.9 MG/DL (1.6-2.4)
--- NOTE | 2018-12-18 07:33 | Pulmonary Progress Note ---
Subjective Time Seen by a Provider: 07:03 Subjective/Events-last exam Pt appears lethargic Sepsis Event Evaluation Height, Weight, BMI Height: 5'10.00" Weight: 411lbs. 13.4oz. 186.280761au; 65.4 BMI Method:Stated Focused Exam Time of Focused Exam: 17:02 Exam Exam Vital Signs Date Time Temp Pulse Resp B/P (MAP) Pulse Ox O2 Delivery O2 Flow Rate FiO2 12/18/18 07:18 69 20 95 30.00 12/18/18 02:32 78 18 96 30.00 12/18/18 00:00 97.8 82 20 128/88 (101) 96 High Flow N/C 4.00 12/17/18 21:50 Nasal Cannula 4.00 12/17/18 20:00 97.3 84 20 140/90 (107) 97 High Flow N/C 4.00 12/17/18 18:55 Nasal Cannula 4.00 12/17/18 18:50 95 Nasal Cannula 4.00 12/17/18 16:00 97.1 84 22 143/90 (107) 98 High Flow N/C 4.00 12/17/18 15:05 93 Nasal Cannula 4.00 12/17/18 11:35 76 94 36 12/17/18 11:35 95 Nasal Cannula 4.00 12/17/18 11:21 96.4 76 18 128/68 (88) 94 High Flow N/C 4.00 12/17/18 08:31 91 Nasal Cannula 4.00 12/17/18 08:00 97.2 82 18 126/66 (86) 96 NIV Bilevel 30.00 12/17/18 08:00 Nasal Cannula 4.00 I & O 12/18/18 07:00 Intake Total 2080 ml Output Total 600 ml Balance 1480 ml Height & Weight Height: 5'10.00" Weight: 411lbs. 13.4oz. 186.255867pg; 65.4 BMI Method:Stated General Appearance: No Apparent Distress, Obese HEENT: Moist Mucous Membranes Neck: Full Range of Motion, Normal Inspection Respiratory: No Accessory Muscle Use, No Respiratory Distress Cardiovascular: Regular Rate, Rhythm, No JVD Capillary Refill: Less Than 3 Seconds Peripheral Pulses: 2+ Radial Pulses (R), 2+ Radial Pulses (L) Gastrointestinal: non tender, soft Extremity: Normal Capillary Refill Neurologic/Psychiatric: Alert, Oriented x3 Skin: Normal Color, Warm/Dry, Other (Bilateral LE wounds, dry abdominal skin ) Results Lab Laboratory Tests 12/17/18 05:35 12/18/18 06:47 Assessment/Plan Assessment/Plan Acute on chronic respiratory failure - biPAP QHS -Pt uses vent to mask at home -SVNs - Duoneb currently Q2. advair Pulmonary edema -monitor Multiple hospitalizations -Consult social work and hospice for education -PT needs ECF placement RLD -Last PFT was 07/2018 - Shows severe RLD with asthma and decreased DLCO AsthmaAE - SVNS, Advair, Singulair, Claritin -Pt uses symbicort and proair as out patient -Pt has a nebulizer at home with Duoneb Diastolic CHF EF 60% -Lasix OHS/VENKATA -vent to mask at home Tobacco use - quit in 1991 Chronic leg wounds - known to Wound care clinic -Wound care is consulted TAMIKA HILARIO DO Dec 18, 2018 07:33
[2018-12-18 08:00] VITALS: BP 130/94
[2018-12-18] MEDS: ASPIRIN E.C. 325 MG (ECOTRIN) TABLET PO SCH (09:37)
[2018-12-18] MEDS: PREGABALIN 100 MG (LYRICA) CAPSULE PO SCH ×3 (09:38→21:18)
[2018-12-18] MEDS: FINASTERIDE (PROSCAR) 5 MG TAB PO SCH (09:38)
[2018-12-18] MEDS: meTOprolol TARTRATE 50 MG (LOPRESSOR) TAB PO SCH ×2 (09:38→21:20)
[2018-12-18] MEDS: DULoxetine 30 MG (CYMBALTA) CAP PO SCH (09:38)
[2018-12-18] MEDS: lisINopril 20 MG (PRINIVIL) TABLET PO SCH (09:38)
[2018-12-18] MEDS: LACTOBACILLUS ACIDOPHILUS (PROBIOTIC) CAPSULE PO SCH (09:38)
[2018-12-18] MEDS: ACETAMINOPHEN 500 MG TAB (TYLENOL) PO SCH ×3 (09:39→21:00)
[2018-12-18] MEDS: MICONAZOLE 2% POWDER (DESENEX AF) 90 GM TOP SCH ×4 (09:39→21:25)
[2018-12-18] MEDS: FUROSEMIDE 20 MG (LASIX) TAB PO SCH (09:39)
--- NOTE | 2018-12-18 10:20 | Cardiology Progress Note ---
Subjective Date Seen by Provider: Dec 18, 2018 Time Seen by Provider: 10:17 Subjective/Events-last exam Patient is laying down in bed. No new complaint. No chest pain Review of Systems General: No Chills, No Night Sweats; Fatigue; No Malaise, No Appetite, No Other HEENT: No Head Aches, No Visual Changes, No Eye Pain, No Ear Pain, No Dysphasia, No Sinus Congestion, No Post Nasal Drip, No Sore Throat, No Other Pulmonary: Dyspnea; No Cough, No Pleuritic Chest Pain, No Other Cardiovascular: No: Chest Pain, Palpitations, Orthopnea, Paroxysmal Noc. Dyspnea, Edema, Lt Headedness, Other Focused Exam Time of Focused Exam: 17:02 Objective-Cardiology Exam Last Set of Vital Signs Vital Signs 12/17/18 12/18/18 11:35 08:00 Temp 97.0 Pulse 81 Resp 22 B/P (MAP) 130/94 (106) Pulse Ox 96 O2 Delivery High Flow N/C O2 Flow Rate 4.00 FiO2 36 Capillary Refill : Less Than 3 Seconds I&O Intake and Output 12/18/18 00:00 Intake Total 1890 ml Output Total 430 ml Balance 1460 ml Intake Oral 1880 ml IV Total 10 ml Output Urine Total 430 ml General: Alert, Oriented X3, Cooperative HEENT: Atraumatic, PERRLA Neck: Supple Lungs: Clear to Auscultation, Normal Air Movement Heart: Regular Rate, Normal S1, Normal S2 Abdomen: Normal Bowel Sounds Extremities: No Clubbing, No Cyanosis Skin: No Rashes Neuro: Normal Speech Psych/Mental Status: Mental Status NL Results Lab Laboratory Tests 12/18/18 06:47 A/P-Cardiology Admission Diagnosis Acute renal failure Chronic kidney disease stage 3-4 Hypertension Hyperlipidemia Assessment/Plan Acute on chronic renal failure, chronic kidney disease stage 3-4, worsening kaiden l function, I will stop Lasix and lisinopril were now 1 monitor renal function. Urinary tract infection. Receiving antibiotic and managed by medical team. Acute on chronic respiratory failure, multifactorial, managed by medical team. Echocardiogram of 08-29-[address] Nicole showed LVEF 70-75%. Concentric hypertrophy. PASP 40 mmHg. No evidence of myocardial ischemia or infarction, LVEF 72% on MPI of July 2017 Hypertension, monitor blood pressure, holding lisinopril due to renal failure Hypertriglyceridemia Morbid obesity with BMI approx 59 H/o isolated PVCs Normal coronaries and normal cardiac hemodynamics reported on cardiac cath of July [address] Paula Fibromyalgia DJD DM II H/o depression, currently controlled Chronic variable leg swelling and stasis dermatitis and venous leg ulcers, likely related to venous insuff Not suitable of SOFIA-inhib or ARB due a h/o hyperkalemia on those agents Minimal bilat carotid arterial disease per u/s of July 2017 Clinical Quality Measures DVT/VTE Risk/Contraindication: Risk Factor Score Per Nursin RFS Level Per Nursing on Admit: 4+=Very High CHARAN STANLEY MD Dec 18, 2018 10:20
[2018-12-18] MEDS: ADVAIR HFA 115/21 MCG INHALER 8 GM IH SCH ×2 (11:01→19:34)
--- NOTE | 2018-12-18 11:54 | Physical Therapy Daily Note ---
PT Daily Note-Current Subjective "I am doing better." Pt agreeable. Pain rated (L) leg and toe 7-8/10. Mental Status Patient Orientation: Person, Place, Situation Transfers Therapy Code Descriptions/Definitions Functional [place] Measure: 0=Not Assessed/NA 4=Minimal Assistance 1=Total Assistance 5=Supervision or Setup 2=Maximal Assistance 6=Modified [place] 3=Moderate Assistance 7=Complete [place] Therapy Quality Codes: 6 Independent with activity with or without an assistive device 5 Patient requires set up or clean up by helper. Patient completes activity by themselves 4 Supervision or touching assist (CGA). [place] provide cues , steadying assist 3 The helper provides less than half the effort to complete the activity 2 The helper provides more than half the effort to complete the activity 1 Dependent. The helper does all the effort to complete an activity 7 Patient refused to complete or attempt activity 9 The patient did not perform the activity before the current illness or injury 88 Not attempted due to Medical conditions or safety concerns Treatments Performed AP and LAQ x 15 each. Pt stood from bedside chair, amb with FWW and O2 per nasal canula 4L/min x 30ft in room. Stood x 1 min, back to chair. Assessment Current Status: Good Progress Pt SOA with exertion, daniela fair-well. Pt back to chair with call light and all needs met. PT Correction Goals Correction Goals PT Middleware Solutions Architect Goals Time Frame: Dec 25, 2018 Transfers (B,C,W/C) (FIM): 4 Gait (FIM): 1 Gait distance (FIM): 1=up to 49 ft Distance: 10' Gait Level of Assist: 4 Gait Assistive Device: FWW PT Plan Treatment/Plan Treatment Plan: Continue Plan of Care Treatment Plan: Bed Mobility, Education, Functional Activity Ghulam, Functional Strength, Gait, Safety, Therapeutic Exercise, Transfers Treatment Duration: Dec 25, 2018 Frequency: 6 times per week Estimated Hrs Per Day: .25 hour per day Patient and/or Family Agrees t: Yes Time/GCodes Time In: 1115 Time Out: 1130 Total Billed Treatment Time: 15 Total Billed Treatment 1, gait 10min, ther ex 5 min CARMINA ROME CPTA Dec 18, 2018 11:54
--- NOTE | 2018-12-18 12:24 | Progress Note - Hospitalist ---
Subjective HPI/CC On Admission Date Seen by Provider: Dec 18, 2018 Time Seen by Provider: 11:15 Chief complaint: Fall with SOB HPI: This is a 63yoWM with a history of morbid obesity, obesity hypoventilation syndrome also, who is known to me form prior hospital stays about every other months after he suffers a fall at home, cannot get up and becomes short of breath and having difficulty so he was admitted from the ER, placed on broad spectrum antibiotics for UTI and possible early pneumonia, cardiology and pulmonology were consulted, BiPAP was just discontinued and he is doing much better after he was on that. Levophed will be weaned off for hypotension. Cefepime and Vancomycin will be maintained for empiric antibiotic coverage. Chest X-ray revealed enlarged heart. Appreciate all consultants help. Subjective/Events-last exam Patient's creatinine is more elevated today at 2.9 No bowel movement yet but does not really want a lot of medications for that Chronic shortness of breath persist Overall such poor prognosis that I am unsure if we will get him good enough to be able to go home which he insists on doing he really needs a long-term care placement Denies any significant pain Eating and drinking pretty well Wounds are being dressed and cared for by nursing staff and Dr. Galvez Review of Systems General: Fatigue Pulmonary: Dyspnea Focused Exam Time of Focused Exam: 17:02 Objective Exam Vital Signs Vital Signs Date Time Temp Pulse Resp B/P (MAP) Pulse Ox O2 Delivery O2 Flow Rate FiO2 12/18/18 19:39 Nasal Cannula 4.00 12/18/18 19:34 98 12/18/18 15:37 97.6 80 20 131/68 (89) 12/17/18 11:35 36 Capillary Refill : Less Than 3 Seconds General Appearance: No Apparent Distress, WD/WN, Chronically ill Respiratory: Chest Non Tender, Lungs Clear, Normal Breath Sounds, No Accessory Muscle Use, No Respiratory Distress Cardiovascular: Regular Rate, Rhythm, No Edema, No Gallop, No JVD, No Murmur, Normal Peripheral Pulses Extremity: Pedal Edema Neurologic/Psychiatric: Alert, Oriented x3, No Motor/Sensory Deficits, Normal Mood/Affect Results/Procedures Lab Laboratory Tests 12/18/18 06:47 Patient resulted labs reviewed. Assessment/Plan Assessment and Plan Assess & Plan/Chief Complaint Assessment: Acute on chronic respiratory failure OHA Chronic leg wounds HTN DM Poor prognosis ARF Lasix versus IVF Monitor closely Poor prognosis Needs [place] Diagnosis/Problems Diagnosis/Problems (1) Acute and chronic respiratory failure with hypoxia Status: Resolved Resolution Date/Time: 09/17/18 @ 16:37 (2) VENKATA on CPAP Status: Chronic (3) COPD with acute exacerbation Status: Resolved Resolution Date/Time: 09/17/18 @ 16:37 (4) Polypharmacy Status: Chronic (5) Obstructive sleep apnea Status: Chronic (6) Neuropathy Status: Chronic (7) Fibromyalgia Status: Chronic (8) Type II diabetes mellitus with complication Status: Chronic Clinical Quality Measures DVT/VTE Risk/Contraindication: Risk Factor Score Per Nursin RFS Level Per Nursing on Admit: 4+=Very High JEROD BRAUN DO Dec 18, 2018 12:23
[2018-12-18 15:37] VITALS: BP 131/68
[2018-12-18] MEDS: ATORVASTATIN 40 MG (LIPITOR) TABLET PO SCH (21:19)
[2018-12-18] MEDS: MONTELUKAST 10 MG (SINGULAIR) TAB PO SCH (21:19)
[2018-12-18] MEDS: DOXEPIN 25 MG (SINEquan) CAP PO SCH (21:20)
[2018-12-19] VITALS: BP 120/81
[2018-12-19] MEDS: inSUlin ASPART (NovoLOG) 1 UNIT/0.01 ML (CHARGE PER UNIT) SC SCH ×4 (06:14→22:03)
[2018-12-19 06:55] LABS: CALCIUM 9.6 MG/DL (8.5-10.1); CREATININE SERUM 3.39 MG/DL (0.60-1.30); MAGNESIUM 2.4 MG/DL (1.6-2.4); POTASSIUM 5.3 MMOL/L (3.6-5.0)
--- NOTE | 2018-12-19 07:58 | Pulmonary Progress Note ---
Subjective Time Seen by a Provider: 07:02 Subjective/Events-last exam Pt is feeling better. Sepsis Event Evaluation Height, Weight, BMI Height: 5'10.00" Weight: 411lbs. 13.4oz. 186.836326nf; 65.4 BMI Method:Stated Focused Exam Time of Focused Exam: 17:02 Exam Exam Vital Signs Date Time Temp Pulse Resp B/P (MAP) Pulse Ox O2 Delivery O2 Flow Rate FiO2 12/19/18 01:48 82 19 94 30.00 12/19/18 00:00 97.0 82 18 120/81 (94) 97 NIV Bilevel 12/18/18 22:14 85 18 96 30.00 12/18/18 20:00 Nasal Cannula 4.00 12/18/18 19:39 Nasal Cannula 4.00 12/18/18 19:34 98 Nasal Cannula 4.00 12/18/18 15:37 97.6 80 20 131/68 (89) 98 High Flow N/C 4.00 12/18/18 14:53 98 Nasal Cannula 4.00 12/18/18 14:25 97.6 12/18/18 13:52 97.0 12/18/18 11:00 Nasal Cannula 4.00 12/18/18 10:58 96 Nasal Cannula 4.00 12/18/18 08:00 Nasal Cannula 4.00 12/18/18 08:00 97.0 81 22 130/94 (106) 96 High Flow N/C 4.00 I & O 12/19/18 07:00 Intake Total 1690 ml Output Total 1175 ml Balance 515 ml Height & Weight Height: 5'10.00" Weight: 411lbs. 13.4oz. 186.028280kx; 65.4 BMI Method:Stated General Appearance: No Apparent Distress, WD/WN, Chronically ill HEENT: Moist Mucous Membranes Neck: Full Range of Motion, Normal Inspection Respiratory: Chest Non Tender, Lungs Clear, Normal Breath Sounds, No Accessory Muscle Use, No Respiratory Distress Cardiovascular: Regular Rate, Rhythm, No Edema, No Gallop, No JVD, No Murmur, Normal Peripheral Pulses Capillary Refill: Less Than 3 Seconds Peripheral Pulses: 2+ Radial Pulses (R), 2+ Radial Pulses (L) Gastrointestinal: non tender, soft Extremity: Pedal Edema Neurologic/Psychiatric: Alert, Oriented x3, No Motor/Sensory Deficits, Normal M ood/Affect Skin: Normal Color, Warm/Dry, Other (Bilateral LE wounds, dry abdominal skin ) Results Lab Laboratory Tests 12/18/18 06:47 12/19/18 06:08 Assessment/Plan Assessment/Plan Acute on chronic respiratory failure - biPAP QHS -Pt uses vent to mask at home -SVNs - Duoneb currently Q2. advair Pulmonary edema -monitor Multiple hospitalizations RLD -Last PFT was 07/2018 - Shows severe RLD with asthma and decreased DLCO AsthmaAE - SVNS, Advair, Singulair, Claritin -Pt uses symbicort and proair as out patient -Pt has a nebulizer at home with Duoneb Diastolic CHF EF 60% -Lasix OHS/VENKATA -vent to mask at home Tobacco use - quit in 1991 Chronic leg wounds - known to Wound care clinic -Wound care is consulted PT is ok for discharge from pulmonary standpoint. TAMIKA HILARIO DO Dec 19, 2018 07:58
[2018-12-19] MEDS: RT-ALBUTEROL/IPRATROPIUM 3 ML (DUONEB) VIAL INH SCH ×4 (07:59→20:04)
[2018-12-19] MEDS: ADVAIR HFA 115/21 MCG INHALER 8 GM IH SCH ×2 (08:00→20:04)
[2018-12-19 08:12] VITALS: BP 146/76
[2018-12-19] MEDS: DULoxetine 30 MG (CYMBALTA) CAP PO SCH (09:07)
[2018-12-19] MEDS: meTOprolol TARTRATE 50 MG (LOPRESSOR) TAB PO SCH ×2 (09:08→22:02)
[2018-12-19] MEDS: PREGABALIN 100 MG (LYRICA) CAPSULE PO SCH ×3 (09:08→22:02)
[2018-12-19] MEDS: FINASTERIDE (PROSCAR) 5 MG TAB PO SCH (09:08)
[2018-12-19] MEDS: ACETAMINOPHEN 500 MG TAB (TYLENOL) PO SCH ×3 (09:09→22:03)
[2018-12-19] MEDS: LACTOBACILLUS ACIDOPHILUS (PROBIOTIC) CAPSULE PO SCH (09:09)
[2018-12-19] MEDS: MICONAZOLE 2% POWDER (DESENEX AF) 90 GM TOP SCH ×4 (09:18→22:04)
[2018-12-19] MEDS: ASPIRIN E.C. 325 MG (ECOTRIN) TABLET PO SCH (09:18)
--- NOTE | 2018-12-19 10:11 | Cardiology Progress Note ---
Subjective Date Seen by Provider: Dec 19, 2018 Time Seen by Provider: 10:09 Subjective/Events-last exam Patient is laying down in bed, having shortness of breath, eating breakfast. No chest pain. Review of Systems General: No Chills, No Night Sweats; Fatigue; No Malaise, No Appetite, No Other HEENT: No Head Aches, No Visual Changes, No Eye Pain, No Ear Pain, No Dysp hasia, No Sinus Congestion, No Post Nasal Drip, No Sore Throat, No Other Pulmonary: Dyspnea; No Cough, No Pleuritic Chest Pain, No Other Cardiovascular: No: Chest Pain, Palpitations, Orthopnea, Paroxysmal Noc. Dyspnea, Edema, Lt Headedness, Other Focused Exam Time of Focused Exam: 17:02 Objective-Cardiology Exam Last Set of Vital Signs Vital Signs 12/17/18 12/19/18 11:35 08:12 Temp 97.0 Pulse 83 Resp 22 B/P (MAP) 146/76 (99) Pulse Ox 81 O2 Delivery High Flow N/C O2 Flow Rate 4.00 FiO2 36 Capillary Refill : Less Than 3 Seconds I&O Intake and Output 12/19/18 00:00 Intake Total 1790 ml Output Total 1050 ml Balance 740 ml Intake Oral 1780 ml IV Total 10 ml Output Urine Total 1050 ml # Bowel Movements 1 General: Alert, Oriented X3, Cooperative HEENT: Atraumatic, PERRLA Neck: Supple Lungs: Normal Air Movement, Other (Bilateral rhonchi) Heart: Regular Rate, Normal S1, Normal S2 Abdomen: Normal Bowel Sounds Extremities: No Clubbing, No Cyanosis, Other (Peripheral edema) Skin: No Rashes Neuro: Normal Speech Psych/Mental Status: Mental Status NL Results Lab Laboratory Tests 12/19/18 06:08 A/P-Cardiology Admission Diagnosis Acute renal failure Chronic kidney disease stage 3-4 Hypertension Hyperlipidemia Assessment/Plan Acute on chronic renal failure, chronic kidney disease stage 4, worsening renal function, Lasix and lisinopril were discontinued on December 18, 2018, still worsening renal function, encouraged increasing fluid intake and will monitor closely Urinary tract infection. Receiving antibiotic and managed by medical team. Acute on chronic respiratory failure, multifactorial, managed by medical team. Echocardiogram of 08-29-[address] Nicole showed LVEF 70-75%. Concentric hypertrophy. PASP 40 mmHg. No evidence of myocardial ischemia or infarction, LVEF 72% on MPI of July 2017 Hypertension, monitor blood pressure, holding lisinopril due to renal failure Hypertriglyceridemia Morbid obesity with BMI approx 59 H/o isolated PVCs Normal coronaries and normal cardiac hemodynamics reported on cardiac cath of July [address] Paula Fibromyalgia DJD DM II H/o depression, currently controlled Chronic variable leg swelling and stasis dermatitis and venous leg ulcers, likely related to venous insuff Not suitable of SOFIA-inhib or ARB due a h/o hyperkalemia on those agents Minimal bilat carotid arterial disease per u/s of July 2017 Clinical Quality Measures DVT/VTE Risk/Contraindication: Risk Factor Score Per Nursin RFS Level Per Nursing on Admit: 4+=Very High CHARAN STANLEY MD Dec 19, 2018 10:11
--- NOTE | 2018-12-19 13:16 | Progress Note - Hospitalist ---
Subjective HPI/CC On Admission Date Seen by Provider: Dec 19, 2018 Time Seen by Provider: 12:00 Chief complaint: Fall with SOB HPI: This is a 63yoWM with a history of morbid obesity, obesity hypoventilation syndrome also, who is known to me form prior hospital stays about every other months after he suffers a fall at home, cannot get up and becomes short of breath and having difficulty so he was admitted from the ER, placed on broad spectrum antibiotics for UTI and possible early pneumonia, cardiology and pulmonology were consulted, BiPAP was just discontinued and he is doing much better after he was on that. Levophed will be weaned off for hypotension. Cefepime and Vancomycin will be maintained for empiric antibiotic coverage. Chest X-ray revealed enlarged heart. Appreciate all consultants help. Subjective/Events-last exam Kidney function has worsened Encouraging oral fluids and nutrition Chronic tachypnea of which he denies any shortness of breath Very guarded prognosis if he becomes oliguric and renal function worsens he will need transferred for possible dialysis Has not had a bowel movement yet but he reports that it feels like it is coming soon Review of Systems General: Fatigue Pulmonary: Dyspnea Focused Exam Time of Focused Exam: 17:02 Objective Exam Vital Signs Vital Signs Date Time Temp Pulse Resp B/P (MAP) Pulse Ox O2 Delivery O2 Flow Rate FiO2 12/19/18 15:54 97 Nasal Cannula 4.00 12/19/18 14:20 97.0 12/19/18 08:12 83 22 146/76 (99) 12/17/18 11:35 36 Capillary Refill : Less Than 3 Seconds General Appearance: No Apparent Distress, WD/WN, Chronically ill, Obese Respiratory: Chest Non Tender, Normal Breath Sounds, No Respiratory Distress, Accessory Muscle Use, Decreased Breath Sounds, Wheezing Neurologic/Psychiatric: Alert, Oriented x3, No Motor/Sensory Deficits, Normal Mood/Affect Results/Procedures Lab Laboratory Tests 12/19/18 06:08 Patient resulted labs reviewed. Assessment/Plan Assessment and Plan Assess & Plan/Chief Complaint Assessment: Acute on chronic respiratory failure OHA Chronic leg wounds HTN DM Poor prognosis ARF Lasix versus IVF Monitor closely Poor prognosis Needs NH Diagnosis/Problems Diagnosis/Problems (1) Acute and chronic respiratory failure with hypoxia Status: Resolved Resolution Date/Time: 09/17/18 @ 16:37 (2) VENKATA on CPAP Status: Chronic (3) COPD with acute exacerbation Status: Resolved Resolution Date/Time: 09/17/18 @ 16:37 (4) Polypharmacy Status: Chronic (5) Obstructive sleep apnea Status: Chronic (6) Neuropathy Status: Chronic (7) Fibromyalgia Status: Chronic (8) Type II diabetes mellitus with complication Status: Chronic Clinical Quality Measures DVT/VTE Risk/Contraindication: Risk Factor Score Per Nursin RFS Level Per Nursing on Admit: 4+=Very High JEROD BRAUN DO Dec 19, 2018 13:16
[2018-12-19 16:00] VITALS: BP 165/92
[2018-12-19 21:00] VITALS: BP 171/87
[2018-12-19] MEDS: ATORVASTATIN 40 MG (LIPITOR) TABLET PO SCH (22:02)
[2018-12-19] MEDS: MONTELUKAST 10 MG (SINGULAIR) TAB PO SCH (22:02)
[2018-12-19] MEDS: DOXEPIN 25 MG (SINEquan) CAP PO SCH (22:02)
[2018-12-20 00:40] VITALS: BP 148/74
[2018-12-20] MEDS: inSUlin ASPART (NovoLOG) 1 UNIT/0.01 ML (CHARGE PER UNIT) SC SCH ×4 (06:29→21:00)
--- NOTE | 2018-12-20 07:03 | Pulmonary Progress Note ---
Subjective Time Seen by a Provider: 07:03 Subjective/Events-last exam PT used Bipap last night. Sepsis Event Evaluation Height, Weight, BMI Height: 5'10.00" Weight: 411lbs. 13.4oz. 186.130599zu; 65.4 BMI Method:Stated Focused Exam Time of Focused Exam: 17:02 Exam Exam Vital Signs Date Time Temp Pulse Resp B/P (MAP) Pulse Ox O2 Delivery O2 Flow Rate FiO2 12/20/18 02:44 83 19 96 30.00 12/20/18 00:40 97.1 84 22 148/74 (98) 96 Face Tent 12/19/18 22:36 88 21 96 30.00 12/19/18 21:00 89 171/87 (115) 12/19/18 20:03 97 Nasal Cannula 4.00 12/19/18 20:00 Nasal Cannula 4.00 12/19/18 16:00 97.2 180 24 165/92 (116) 97 High Flow N/C 4.00 12/19/18 15:54 97 Nasal Cannula 4.00 12/19/18 14:20 97.0 12/19/18 11:30 97 Nasal Cannula 4.00 12/19/18 08:12 97.0 83 22 146/76 (99) 81 High Flow N/C 4.00 12/19/18 08:04 Nasal Cannula 4.00 12/19/18 08:00 100 Nasal Cannula 4.00 I & O 12/20/18 06:59 Intake Total 1525 ml Output Total 1200 ml Balance 325 ml Height & Weight Height: 5'10.00" Weight: 411lbs. 13.4oz. 186.795386zq; 65.4 BMI Method:Stated General Appearance: No Apparent Distress, WD/WN, Chronically ill HEENT: Moist Mucous Membranes Neck: Full Range of Motion, Normal Inspection Respiratory: Chest Non Tender, Lungs Clear, Normal Breath Sounds, No Accessory Muscle Use, No Respiratory Distress Cardiovascular: Regular Rate, Rhythm, No Edema, No Gallop, No JVD, No Murmur, Normal Peripheral Pulses Capillary Refill: Less Than 3 Seconds Peripheral Pulses: 2+ Radial Pulses (R), 2+ Radial Pulses (L) Gastrointestinal: non tender, soft Extremity: Pedal Edema Neurologic/Psychiatric: Alert, Oriented x3, No Motor/Sensory Deficits, Normal Mood/Affect Skin: Normal Color, Warm/Dry, Other (Bilateral LE wounds, dry abdominal skin ) Results Lab Laboratory Tests 12/19/18 06:08 Assessment/Plan Assessment/Plan Acute on chronic respiratory failure - biPAP QHS -Pt uses vent to mask at home -SVNs - Duoneb currently Q2. advair Pulmonary edema -monitor Multiple hospitalizations RLD -Last PFT was 07/2018 - Shows severe RLD with asthma and decreased DLCO AsthmaAE - SVNS, Advair, Singulair, Claritin -Pt uses symbicort and proair as out patient -Pt has a nebulizer at home with Duoneb Diastolic CHF EF 60% -Lasix OHS/VENKATA -vent to mask at home Tobacco use - quit in 1991 Chronic leg wounds - known to Wound care clinic -Wound care is consulted PT is ok for discharge from pulmonary standpoint. TAMIKA HILARIO DO Dec 20, 2018 07:03
[2018-12-20] MEDS: RT-ALBUTEROL/IPRATROPIUM 3 ML (DUONEB) VIAL INH SCH ×4 (07:24→21:12)
[2018-12-20 07:57] VITALS: BP 136/82
[2018-12-20] MEDS: MICONAZOLE 2% POWDER (DESENEX AF) 90 GM TOP SCH ×4 (09:34→21:00)
[2018-12-20] MEDS: LACTOBACILLUS ACIDOPHILUS (PROBIOTIC) CAPSULE PO SCH (09:34)
[2018-12-20] MEDS: PREGABALIN 100 MG (LYRICA) CAPSULE PO SCH ×3 (09:34→20:34)
[2018-12-20] MEDS: DULoxetine 30 MG (CYMBALTA) CAP PO SCH (09:35)
[2018-12-20] MEDS: meTOprolol TARTRATE 50 MG (LOPRESSOR) TAB PO SCH ×2 (09:35→20:35)
[2018-12-20] MEDS: ACETAMINOPHEN 500 MG TAB (TYLENOL) PO SCH ×3 (09:35→23:40)
[2018-12-20] MEDS: ASPIRIN E.C. 325 MG (ECOTRIN) TABLET PO SCH (09:35)
[2018-12-20] MEDS: FINASTERIDE (PROSCAR) 5 MG TAB PO SCH (09:36)
--- NOTE | 2018-12-20 09:39 | Progress Note - Hospitalist ---
Subjective HPI/CC On Admission Date Seen by Provider: Dec 20, 2018 Time Seen by Provider: 09:45 Chief complaint: Fall with SOB HPI: This is a 63yoWM with a history of morbid obesity, obesity hypoventilation syndrome also, who is known to me form prior hospital stays about every other months after he suffers a fall at home, cannot get up and becomes short of breath and having difficulty so he was admitted from the ER, placed on broad spectrum antibiotics for UTI and possible early pneumonia, cardiology and pulmonology were consulted, BiPAP was just discontinued and he is doing much better after he was on that. Levophed will be weaned off for hypotension. Cefepime and Vancomycin will be maintained for empiric antibiotic coverage. Chest X-ray revealed enlarged heart. Appreciate all consultants help. Subjective/Events-last exam Creatinine worsening at 3.64 so gentle IV fluids will be started by cardiology Had a fall when physical therapy was getting him up and slipped to the floor without injury Patient can no longer support his massive weight of BMI of 62 Chronic respiratory failure noted and unsure if he is well enough to even think about going home of which he asked to go home every single day Very difficult situation Severe morbid obesity makes it very difficult for any improvement in status and disposition Review of Systems General: Fatigue Pulmonary: Dyspnea Focused Exam Time of Focused Exam: 17:02 Objective Exam Vital Signs Vital Signs Date Time Temp Pulse Resp B/P (MAP) Pulse Ox O2 Delivery O2 Flow Rate FiO2 12/20/18 11:00 98 Nasal Cannula 4.00 12/20/18 10:05 96.9 12/20/18 07:57 78 20 136/82 (100) 12/17/18 11:35 36 Capillary Refill : Less Than 3 Seconds General Appearance: No Apparent Distress, WD/WN, Anxious, Chronically ill, Obese Respiratory: No Respiratory Distress, Accessory Muscle Use, Decreased Breath Sounds, Wheezing Cardiovascular: Regular Rate, Rhythm, No Edema, No Gallop, No JVD, No Murmur, Normal Peripheral Pulses Neurologic/Psychiatric: Alert, Oriented x3, No Motor/Sensory Deficits, Normal Mood/Affect Results/Procedures Lab Laboratory Tests 12/20/18 09:56 Patient resulted labs reviewed. Assessment/Plan Assessment and Plan Assess & Plan/Chief Complaint Assessment: Acute on chronic respiratory failure OHA Chronic leg wounds HTN DM Poor prognosis ARF Holding Lasix for the past 3 days but start IVF Monitor closely Poor prognosis Needs NH Diagnosis/Problems Diagnosis/Problems (1) Acute and chronic respiratory failure with hypoxia Status: Resolved Resolution Date/Time: 09/17/18 @ 16:37 (2) VENKATA on CPAP Status: Chronic (3) COPD with acute exacerbation Status: Resolved Resolution Date/Time: 09/17/18 @ 16:37 (4) Polypharmacy Status: Chronic (5) Obstructive sleep apnea Status: Chronic (6) Neuropathy Status: Chronic (7) Fibromyalgia Status: Chronic (8) Type II diabetes mellitus with complication Status: Chronic (9) Renal failure (ARF), acute on chronic Status: Acute Qualifiers: Acute renal failure type: unspecified Chronic kidney disease stage: unspecified stage Qualified Codes: N17.9 - Acute kidney failure, unspecified; N18.9 - Chronic kidney disease, unspecified Clinical Quality Measures DVT/VTE Risk/Contraindication: Risk Factor Score Per Nursin RFS Level Per Nursing on Admit: 4+=Very High JEROD BRAUN DO Dec 20, 2018 09:39
[2018-12-20 10:24] LABS: CALCIUM 9.3 MG/DL (8.5-10.1); CREATININE SERUM 3.64 MG/DL (0.60-1.30); MAGNESIUM 2.3 MG/DL (1.6-2.4); POTASSIUM 5.6 MMOL/L (3.6-5.0)
[2018-12-20] MEDS: ADVAIR HFA 115/21 MCG INHALER 8 GM IH SCH ×2 (11:00→20:38)
--- NOTE | 2018-12-20 13:07 | Physical Therapy Daily Note ---
PT Daily Note-Current Subjective States that he will get to the chair for lunch. Pain Numeric Pain Scale: 0-No Pain Transfers Therapy Code Descriptions/Definitions Functional [place] Measure: 0=Not Assessed/NA 4=Minimal Assistance 1=Total Assistance 5=Supervision or Setup 2=Maximal Assistance 6=Modified [place] 3=Moderate Assistance 7=Complete [place] Therapy Quality Codes: 6 Independent with activity with or without an assistive device 5 Patient requires set up or clean up by helper. Patient completes activity by themselves 4 Supervision or touching assist (CGA). [place] provide cues , steadying assist 3 The helper provides less than half the effort to complete the activity 2 The helper provides more than half the effort to complete the activity 1 Dependent. The helper does all the effort to complete an activity 7 Patient refused to complete or attempt activity 9 The patient did not perform the activity before the current illness or injury 88 Not attempted due to Medical conditions or safety concerns Transfers (B, C, W/C) (FIM): 2 Scootin Rollin Supine to/from Sit: 4 Sit to/from Stand: 5 Bed to/from Chair: 1 Patient's leg gave out while transferring bed to chair and was lowered to the floor. Patient was able to get from the floor to bed with assist x 3. Patient denied any pain after treatment. Nursing was notified. Assessment Current Status: Fair Progress Patient's legs were very weak. See transfer note. PT Assisted Goals Survey Interviewer Goals PT Survey Interviewer Goals Time Frame: Dec 25, 2018 Transfers (B,C,W/C) (FIM): 4 Gait (FIM): 1 Gait distance (FIM): 1=up to 49 ft Distance: 10' Gait Level of Assist: 4 Gait Assistive Device: FWW PT Plan Treatment/Plan Treatment Plan: Continue Plan of Care Treatment Plan: Bed Mobility, Education, Functional Activity Ghulam, Functional Strength, Gait, Safety, Therapeutic Exercise, Transfers Treatment Duration: Dec 25, 2018 Frequency: 6 times per week Estimated Hrs Per Day: .25 hour per day Patient and/or Family Agrees t: Yes Time/GCodes Time In: 1215 Time Out: 1245 Total Billed Treatment Time: 30 Total Billed Treatment 1, FA x 30 SALVATORE BLANCO PT Dec 20, 2018 13:07
--- NOTE | 2018-12-20 13:50 | Cardiology Progress Note ---
Subjective Date Seen by Provider: Dec 20, 2018 Time Seen by Provider: 13:49 Subjective/Events-last exam patient is laying down in bed, had generalized weakness, unable to support his weight Review of Systems General: No Chills, No Night Sweats; Fatigue, Malaise; No Appetite, No Other HEENT: No Head Aches, No Visual Changes, No Eye Pain, No Ear Pain, No Dysphasia, No Sinus Congestion, No Post Nasal Drip, No Sore Throat, No Other Pulmonary: Dyspnea; No Cough, No Pleuritic Chest Pain, No Other Cardiovascular: Edema; No: Palpitations, Orthopnea, Paroxysmal Noc. Dyspnea, Lt Headedness, Other Focused Exam Time of Focused Exam: 17:02 Objective-Cardiology Exam Last Set of Vital Signs Vital Signs 12/17/18 12/20/18 12/20/18 12/20/18 11:35 07:57 10:05 11:00 Temp 96.9 Pulse 78 Resp 20 B/P (MAP) 136/82 (100) Pulse Ox 98 O2 Delivery Nasal Cannula O2 Flow Rate 4.00 FiO2 36 Capillary Refill : Less Than 3 Seconds I&O Intake and Output 12/20/18 00:00 Intake Total 1550 ml Output Total 1125 ml Balance 425 ml Intake Oral 1550 ml Output Urine Total 1125 ml General: Alert, Oriented X3, Cooperative HEENT: Atraumatic, PERRLA Neck: Supple Lungs: Normal Air Movement, Other (Bilateral rhonchi) Heart: Regular Rate, Normal S1, Normal S2 Abdomen: Normal Bowel Sounds Extremities: No Clubbing, No Cyanosis, Other (Peripheral edema) Skin: No Rashes Neuro: Normal Speech Psych/Mental Status: Mental Status NL Results Lab Laboratory Tests 12/20/18 09:56 A/P-Cardiology Admission Diagnosis Acute renal failure Chronic kidney disease stage 3-4 Hypertension Hyperlipidemia Assessment/Plan Acute on chronic renal failure, chronic kidney disease stage 4, worsening renal function, Lasix and lisinopril were discontinued on December 18, 2018, still worsening renal function, encouraged increasing fluid intake, continue due to deteriorate, I'll start IV fluid and monitoretc. Debility, generalized weakness, morbid obesity. Managed by primary care team Urinary tract infection. Receiving antibiotic and managed by medical team. Acute on chronic respiratory failure, multifactorial, managed by medical team. Echocardiogram of 08-29-[address] Nicole showed LVEF 70-75%. Concentric hypertrophy. PASP 40 mmHg. No evidence of myocardial ischemia or infarction, LVEF 72% on MPI of July 2017 Hypertension, monitor blood pressure, holding lisinopril due to renal failure Hypertriglyceridemia Morbid obesity with BMI approx 59 H/o isolated PVCs Normal coronaries and normal cardiac hemodynamics reported on cardiac cath of July [address] Paula Fibromyalgia DJD DM II H/o depression, currently controlled Chronic variable leg swelling and stasis dermatitis and venous leg ulcers, likely related to venous insuff Not suitable of SOFIA-inhib or ARB due a h/o hyperkalemia on those agents Minimal bilat carotid arterial disease per u/s of July 2017 Clinical Quality Measures DVT/VTE Risk/Contraindication: Risk Factor Score Per Nursin RFS Level Per Nursing on Admit: 4+=Very High CHARAN STANLEY MD Dec 20, 2018 13:50
[2018-12-20] MEDS: NS IV 1000 ML 1,000 ML IV SCH (14:10)
[2018-12-20 16:50] VITALS: BP 136/82
[2018-12-20 16:59] VITALS: BP 131/79
[2018-12-20] MEDS: MONTELUKAST 10 MG (SINGULAIR) TAB PO SCH (20:35)
[2018-12-20] MEDS: ATORVASTATIN 40 MG (LIPITOR) TABLET PO SCH (20:35)
[2018-12-20] MEDS: POLYETHYLENE GLYCOL 17 GM (MIRALAX) PACK PO SCH (20:36)
[2018-12-20] MEDS: DOXEPIN 25 MG (SINEquan) CAP PO SCH (23:40)
[2018-12-21] VITALS: BP 132/78
[2018-12-21] MEDS: inSUlin ASPART (NovoLOG) 1 UNIT/0.01 ML (CHARGE PER UNIT) SC SCH ×2 (05:39→11:00)
[2018-12-21 07:03] LABS: CALCIUM 9.1 MG/DL (8.5-10.1); CREATININE SERUM 4.22 MG/DL (0.60-1.30); MAGNESIUM 2.4 MG/DL (1.6-2.4); POTASSIUM 5.9 MMOL/L (3.6-5.0)
[2018-12-21 08:00] VITALS: BP 131/72
[2018-12-21] MEDS: RT-ALBUTEROL/IPRATROPIUM 3 ML (DUONEB) VIAL INH SCH ×3 (08:19→15:38)
[2018-12-21] MEDS: ADVAIR HFA 115/21 MCG INHALER 8 GM IH SCH (08:53)
[2018-12-21] MEDS: DULoxetine 30 MG (CYMBALTA) CAP PO SCH (08:56)
[2018-12-21] MEDS: FINASTERIDE (PROSCAR) 5 MG TAB PO SCH (08:56)
[2018-12-21] MEDS: LACTOBACILLUS ACIDOPHILUS (PROBIOTIC) CAPSULE PO SCH (08:56)
[2018-12-21] MEDS: PREGABALIN 100 MG (LYRICA) CAPSULE PO SCH ×2 (08:56→13:46)
[2018-12-21] MEDS: meTOprolol TARTRATE 50 MG (LOPRESSOR) TAB PO SCH (08:57)
[2018-12-21] MEDS: ACETAMINOPHEN 500 MG TAB (TYLENOL) PO SCH ×2 (08:57→13:47)
[2018-12-21] MEDS: ASPIRIN E.C. 325 MG (ECOTRIN) TABLET PO SCH (08:57)
[2018-12-21] MEDS: MICONAZOLE 2% POWDER (DESENEX AF) 90 GM TOP SCH ×3 (08:58→18:04)
[2018-12-21] MEDS: NS IV 1000 ML 1,000 ML IV SCH ×2 (11:25)
--- NOTE | 2018-12-21 11:49 | Discharge Summary ---
Diagnosis/Chief Complaint Date of Admission Dec 13, 2018 at 17:15 Date of Discharge Dec 21, 2018 Admission Diagnosis Admission Diagnosis 1. Acute Respiratory Distress 2. COPD Exacerbation 3. Severe sepsis 4. Acute Kidney Injury 5. Elevated INR 6. Diabetic Neuropathy 7. Eye infection 8. Heart Failure 9. UTI 10. Pneumonia Discharge Diagnosis Acute renal failure, oliguric- creatinine increasing over the weekend in spite of holding lisinopril and lasix and receiving some IVF, now above 4 and with K 5.9. Discussed with patient and he states he would want dialysis if needed, discussed with [facility] and accepted for transfer. Acute on chronic respiratory failure- appreciate Pulm recommendations. Improving, on 4 lpm supplemental oxygen at time of transfer. Blood cultures and urine culture negative, flu swab negative. Echocardiogram of 08-29-[address] Nicole showed LVEF 70-75%. Concentric hype rtrophy. PASP 40 mmHg. Chronic CHUNG and sleep apnea, related to obesity-hypoventilation syndrome No evidence of myocardial ischemia or infarction, LVEF 72% on MPI of July 2017 Hypertension Hypertriglyceridemia Morbid obesity with BMI approx 65 Fibromyalgia DJD DM II H/o depression, currently controlled CKD stage 3 - 4, likely due to diabetic nephropathy - follows with Dr. Mina Lassiter of nephrology services Minimal bilat carotid arterial disease per u/s of July 2017 Chief Complaint/HPI Chief Complaint/HPI From Dr. Martinez's HPI "Mr. Perea is a 63 year old male that presented to the ER with shortness or breath and increased temperature. He reported that he had fell off his couch at home and was on the floor for sometime. EMS was contacted to help him off the floor and declined transport to the hospital. He states that his home care nurse who performs his wound care was concerned when she was there and he was running a temperature and his PCP was called and evaluation at the ER was advised." Discharge Summary-Simple/Stand Consultations Discharge Physical Examination Allergies: Coded Allergies: Sulfa (Sulfonamide Antibiotics) (Unverified Allergy, Unknown, 03/21/14) latex (Unverified Allergy, Unknown, 03/21/14) raspberry (Unverified Allergy, Unknown, 03/21/14) zinc oxide (Unverified Allergy, Unknown, 03/21/14) Uncoded Allergies: ARTIFICIAL SWEETNERS (Allergy, Unknown, 03/21/14) Vitals & I&Os Vital Sign - Last 12Hours Date Time Temp Pulse Resp B/P (MAP) Pulse Ox O2 Delivery O2 Flow Rate FiO2 12/21/18 08:54 100 High Flow N/C 4.00 12/21/18 08:19 72 20 12/21/18 00:00 98.2 132/78 (96) 12/20/18 20:00 100 Intake and Output 12/21/18 00:00 Intake Total 1240 ml Output Total 550 ml Balance 690 ml General Appearance: Alert, Moderate Distress Respiratory: Clear to Auscultation, Other (decreased air movement) Cardiovascular: Other (tachycardia) Abdominal: Normal Bowel Sounds, Soft Psych/Mental Status: Mental Status NL Hospital Course See final discharge diagnosis. Labs Laboratory Tests 12/18/18 21:11: Glucometer 205H 12/19/18 06:08: Sodium Level 140, Potassium Level 5.3H, Chloride Level 103, Carbon Dioxide Level 23, Anion Gap 14, Blood Urea Nitrogen 61H, Creatinine 3.39#H, Estimat Glomerular Filtration Rate 18, BUN/Creatinine Ratio 18, Glucose Level 149H, Calcium Level 9.6, Magnesium Level 2.4 12/19/18 06:11: Glucometer 150H 12/19/18 12:00: Glucometer 166H 12/19/18 17:13: Glucometer 153H 12/19/18 21:56: Glucometer 204H 12/20/18 06:27: Glucometer 175H 12/20/18 09:56: Sodium Level 141, Potassium Level 5.6H, Chloride Level 103, Carbon Dioxide Level 28, Anion Gap 10, Blood Urea Nitrogen 65H, Creatinine 3.64H, Estimat Glomerular Filtration Rate 17, BUN/Creatinine Ratio 18, Glucose Level 153H, Calcium Level 9.3, Magnesium Level 2.3 12/20/18 10:17: Glucometer 165H 12/20/18 17:10: Glucometer 133H 12/20/18 20:09: Glucometer 141H 12/21/18 05:33: Glucometer 148H 12/21/18 06:00: Sodium Level 140, Potassium Level 5.9H, Chloride Level 105, Carbon Dioxide Level 23, Anion Gap 12, Blood Urea Nitrogen 69H, Creatinine 4.22#H, Estimat Glomerular Filtration Rate 14, BUN/Creatinine Ratio 16, Glucose Level 147H, Calcium Level 9.1, Magnesium Level 2.4 12/21/18 11:17: Glucometer 161H 12/21/18 16:12: Glucometer 152H Microbiology 12/13/18 Blood Culture - Final, Complete No growth 12/14/18 MRSA Screen - Final, Complete 12/13/18 Urine Culture - Final, Complete NO GROWTH Radiology Reviewed NAME: KEISHA PEREA [facility] REC#: [id number] PT STATUS: REG ER : 1955 PHYSICIAN: HARMAN ZUNIGA MD ADMIT DATE: 12/13/18/ER Signed Date of Exam: 12/13/18 CHEST 1 VIEW, AP/PA ONLY INDICATION: Fall from bed COMPARISON: 12/01/2018 FINDINGS: The heart is enlarged and increased from prior. There is increased vascular congestion as well as increased pulmonary edema. There are likely at least small pleural effusions and likely some pleural edema or a small amount of interfissural pleural fluid on the right. IMPRESSION: Failure pattern having developed as described. Dictated by: Dictated on workstation # [id number] Dict: 12/13/18 1450 Trans: 12/13/18 1501 Interpreted by: DARYL ROYAL Electronically signed by: DARYL ROYAL 12/13/18 1501 Discharge Condition at discharge Worsening renal function, transferred for Nephrology services Instructions to patient/family Please see electronic discharge instructions given to patient. Discharge Medications Reviewed and agree with Discharge Medication list on patient's Discharge Instruction sheet Clinical Quality Measures DVT/VTE Risk/Contraindication: Risk Factor Score Per Nursin RFS Level Per Nursing on Admit: 4+=Very High JOHN BUCIO MD Dec 21, 2018 11:49
--- NOTE | 2018-12-21 11:52 | NUR ---
patient did not get his 1100 svn bt due to patient was getting cleaned up when RT made it past his room
--- NOTE | 2018-12-21 12:20 | Physical Therapy Progress Note ---
Therapy Progress Note Patient appears to have increase in confusion and unable to follow direction by PT. Patient also appears to have labored breathing. Patient declined PT on this date and patient is not safe for OOB activity at this time. 1 ref/no treatment rendered (1114) SAI ZHANG PT Dec 21, 2018 12:20
[2018-12-21] MEDS ORDERED: SOD POLYSTERENE 15 GM/60 ML (KAYEXALATE) UNIT DOSE PO SCH (12:45)
--- NOTE | 2018-12-21 14:38 | Pulmonary Progress Note ---
Subjective Time Seen by a Provider: 08:00 Subjective/Events-last exam No complications noted. Sepsis Event Evaluation Height, Weight, BMI Height: 5'10.00" Weight: 410lbs. 0.0oz. 185.200960dc; 65.4 BMI Method:Stated Focused Exam Time of Focused Exam: 17:02 Exam Exam Vital Signs Date Time Temp Pulse Resp B/P (MAP) Pulse Ox O2 Delivery O2 Flow Rate FiO2 12/21/18 08:54 100 High Flow N/C 4.00 12/21/18 08:19 72 20 96 30.00 12/21/18 08:00 97.0 66 20 131/72 (91) 100 Nasal Cannula 4.00 12/21/18 00:00 98.2 72 20 132/78 (96) 95 NIV CPAP 12/20/18 21:22 78 19 93 30.00 12/20/18 21:13 93 High Flow N/C 4.00 12/20/18 20:00 93 High Flow N/C 4.00 100 12/20/18 16:59 97.9 68 22 131/79 (96) 100 Nasal Cannula 4.00 12/20/18 16:50 71 98 36 I & O 12/21/18 07:00 Intake Total 1690 ml Output Total 1150 ml Balance 540 ml Height & Weight Height: 5'10.00" Weight: 410lbs. 0.0oz. 185.965897vv; 65.4 BMI Method:Stated General Appearance: No Apparent Distress, WD/WN, Chronically ill HEENT: Moist Mucous Membranes Neck: Full Range of Motion, Normal Inspection Respiratory: Chest Non Tender, Lungs Clear, Normal Breath Sounds, No Accessory Muscle Use, No Respiratory Distress Cardiovascular: Regular Rate, Rhythm, No Edema, No Gallop, No JVD, No Murmur, Normal Peripheral Pulses Capillary Refill: Less Than 3 Seconds Peripheral Pulses: 2+ Radial Pulses (R), 2+ Radial Pulses (L) Gastrointestinal: non tender, soft Extremity: Pedal Edema Neurologic/Psychiatric: Alert, Oriented x3, No Motor/Sensory Deficits, Normal Mood/Affect Skin: Normal Color, Warm/Dry, Other (Bilateral LE wounds, dry abdominal skin ) Results Lab Laboratory Tests 12/20/18 09:56 12/21/18 06:00 Assessment/Plan Assessment/Plan Acute on chronic respiratory failure - biPAP QHS -Pt uses vent to mask at home -SVNs - Duoneb currently Q2. advair Pulmonary edema -monitor Multiple hospitalizations RLD -Last PFT was 07/2018 - Shows severe RLD with asthma and decreased DLCO AsthmaAE - SVNS, Advair, Singulair, Claritin -Pt uses symbicort and proair as out patient -Pt has a nebulizer at home with Duoneb Diastolic CHF EF 60% -Lasix OHS/VENKATA -vent to mask at home Tobacco use - quit in 1991 Chronic leg wounds - known to Wound care clinic -Wound care is consulted PT is ok for discharge from pulmonary standpoint. TAMIKA HILARIO DO Dec 21, 2018 14:37
--- NOTE | 2018-12-21 15:21 | Progress Note - Cardiology ---
Cardiology SOAP Progress Note Subjective: Does not report cp or palp or syncope Feels generally weak Feels confused Objective: I&O/Vital Signs 12/21/18 12/21/18 12/21/18 08:00 08:19 08:54 Temp 97.0 Pulse 66 72 Resp 20 20 B/P (MAP) 131/72 (91) Pulse Ox 100 96 100 O2 Delivery Nasal Cannula High Flow N/C O2 Flow Rate 4.00 30.00 4.00 12/21/18 00:00 Intake Total 1240 ml Output Total 550 ml Balance 690 ml Weight (Pounds): 410 Weight (Ounces): 0.0 Weight (Calculated Kilograms): [id number] Constitutional: No AAO x 3; well-developed, well-nourished Respiratory: No accessory muscle use, No respiratory distress; chest expansion is symmetric, chest is bilaterally symmetric, other (fair air entry; diminished) Cardiovascular: regular rate-rhythm; No JVD; S1 and S2 Gastrointestional: No tender; soft, round, audible bowel sounds Extremities: other (bilat pitting and non-pitting edema LE) Neurologic/Psychiatric: grossly intact Skin: normal color, warm/dry Results/Procedures: Labs Laboratory Tests 12/20/18 17:10: Glucometer 133H 12/20/18 20:09: Glucometer 141H 12/21/18 05:33: Glucometer 148H 12/21/18 06:00: Sodium Level 140, Potassium Level 5.9H, Chloride Level 105, Carbon Dioxide Level 23, Anion Gap 12, Blood Urea Nitrogen 69H, Creatinine 4.22#H, Estimat Glomerular Filtration Rate 14, BUN/Creatinine Ratio 16, Glucose Level 147H, Calcium Level 9.1, Magnesium Level 2.4 12/21/18 11:17: Glucometer 161H Microbiology 12/13/18 Blood Culture - Final, Complete No growth 12/14/18 MRSA Screen - Final, Complete 12/13/18 Urine Culture - Final, Complete NO GROWTH Laboratory Tests 12/20/18 09:56 12/21/18 06:00 A/P: Assessment: Acute renal failure, oliguric, managed by Dr Chico DE LA CRUZ with sepsis - management per Medical/ICU services Acute on chronic respiratory failure multi-factorial Echocardiogram of 08-29-[address] Nicole showed LVEF 70-75%. Concentric hypertrophy. PASP 40 mmHg. Chronic CHUNG and sleep apnea, related to obesity-hypoventilation syndrome No evidence of myocardial ischemia or infarction, LVEF 72% on MPI of July 2017 Hypertension Hypertriglyceridemia Morbid obesity with BMI approx 65 H/o isolated PVCs Normal cors and normal cardiac hemodynamics reported on cardiac cath of July [address] Nisa ALVAREZ DM II H/o depression, currently controlled Chronic variable leg swelling and stasis dermatitis and venous leg ulcers, likely related to venous insuff CKD stage 3 - 4, likely due to diabetic nephropathy - follows with Dr. Mina Lassiter of nephrology services Not suitable of SOFIA-inhib or ARB due a h/o hyperkalemia on those agents Minimal bilat carotid arterial disease per u/s of July 2017 Plan: * I reviewed the events of the weekend. Has had worsening of status over the weekend. Most recent issue is acute renal failure and moderate hyperkalemia that is being managed by Dr Golden. She is harjeet arranging transfer to [facility]. Transfer to a tertiary care facility does appear appropriate FLORIN GREENBERG MD FACP FACC CCDS Dec 21, 2018 15:21
[2018-12-21 16:18] VITALS: BP 164/107
--- NOTE | 2018-12-21 17:12 | NUR ---
CM/SS, update on psychosocial issues from patient's brother Krystian. He is moving forward on trying to find placement for his father who has resided with patient for many years as earlier noted. Krystian has not been home since patient was admitted because he has stayed with his father. [employer] provided a list of both NURSING HOME's and SNF's, Krystian is going to visit and make a selection. He continues to work on the Medicaid for his father, having issues about life insurance policies as assets. He was going to home to investigate that process, his father spoke with the home about his wishes when his spouse years ago but did not make financial arrangements. With patient's decline and anticipated transfer, parts data writer advised his recovery would likely involve a detention stay or extended care arrangement.
--- NOTE | 2018-12-21 20:59 | NUR ---
pt transfered to [place] via [facility]. pt stable condition unchanged from report that prev nurse had given carl.. report given to [facility] crew..
== END 2018-12-21 20:59 | disposition short-term general hospital (02) | DRG 871 ==
LOC: EDUNIT# 13:20 → ER 13:24 → ICU 17:15 → 4TH 12-15 13:30
PROVIDERS: ADMIT Internal Medicine; ATTEND Family Medicine
DX: A41.9 Sepsis, unspecified organism (principal); R65.20 Severe sepsis without septic shock; J44.0 Chronic obstructive pulmonary disease with (acute) lower respiratory infection; J18.9 Pneumonia, unspecified organism; N39.0 Urinary tract infection, site not specified; J96.21 Acute and chronic respiratory failure with hypoxia; J44.1 Chronic obstructive pulmonary disease with (acute) exacerbation; N17.9 Acute kidney failure, unspecified; Z66 Do not resuscitate; I11.0 Hypertensive heart disease with heart failure; I50.30 Unspecified diastolic (congestive) heart failure; E66.2 Morbid (severe) obesity with alveolar hypoventilation; Z68.44 Body mass index [BMI] 60.0-69.9, adult; L97.228 Non-pressure chronic ulcer of left calf with other specified severity; J45.901 Unspecified asthma with (acute) exacerbation; N18.4 Chronic kidney disease, stage 4 (severe); L97.512 Non-pressure chronic ulcer of other part of right foot with fat layer exposed; E11.621 Type 2 diabetes mellitus with foot ulcer; E11.42 Type 2 diabetes mellitus with diabetic polyneuropathy; E11.21 Type 2 diabetes mellitus with diabetic nephropathy; I83.022 Varicose veins of left lower extremity with ulcer of calf; E78.1 Pure hyperglyceridemia; H10.023 Other mucopurulent conjunctivitis, bilateral; R29.6 Repeated falls; F32.9 Major depressive disorder, single episode, unspecified; M19.91 Primary osteoarthritis, unspecified site; R79.1 Abnormal coagulation profile; Z99.81 Dependence on supplemental oxygen; Z87.891 Personal history of nicotine dependence; Z79.4 Long term (current) use of insulin
CPT/HCPCS: 36415; 36600; 51702; 71045; 76937; 80048; 80053; 80202; 81000; 82550; 82805; 82962; 83605; 83735; 83880; 84100; 84484; 85007; 85025; 85027; 85610; 85730; 87040; 87081; 87088; 87804; 93005; 94010; 94640; 94660; 94760; 96361; 96365; 96375